=== PATIENT | male | born 1955 | race African-American/Black ===

== ENCOUNTER 2022-06-29 14:17 | Inpatient (IN) | payer OTHER ==
--- OUTSIDE RECORDS SUMMARY | 2022-06-29 14:37 | XMS REPORT | Continuity of Care Document ---
:1955 Author Organization [facility] t Address [address] [place] [address]. [address] [place] [address] Care Team Providers Name Role Phone Abner Rivera MD Primary Care Physician JASMYNE PARIKH Attending Clinician Unavailable ABNER RIVERA Attending Clinician Unavailable KURTIS KIRK Attending Clinician Unavailable KURTIS KIRK Attending Clinician Unavailable Kelsie Matt Hutchinson Attending Clinician Unavailable Katazryna Coburn MD Attending Clinician SENDY DOTY Attending Clinician Unavailable Lab, Ang - Db Attending Clinician Unavailable Abner Rivera MD Attending Clinician TOMEKA REED Attending Clinician Unavailable JUNIOR GARCIA Attending Clinician Unavailable JUNIOR GARCIA Attending Clinician Unavailable Doctor Unassigned, [place] Attending Clinician Unavailable Sendy Doty MD Attending Clinician [phone] [place] Jolly MD Attending Clinician 2, Ad[facility] Lab Attending Clinician Unavailable Padmaja Emerson MD Attending Clinician PADMAJA EMERSON Attending Clinician Unavailable Nurse, [facility] Attending Clinician Unavailable Parminder Rueda MD Attending Clinician Isreal Logan MD Attending Clinician Vaccine, [facility] Family [facility] Attending Clinician Unavailable SHANAE, AHMED Attending Clinician Unavailable SHANAE, AHMED Attending Clinician Unavailable SHELBIE, COLÓN A Attending Clinician Unavailable Alexandrea Segundo MD Attending Clinician Augusta FUENTES, Cassius Damon Attending Clinician Unavailable ASHWIN WILSON Attending Clinician Unavailable Frieda MATA, Nkechi [place] Attending Clinician Oscar ARCOS, Huma Damon Attending Clinician Ashwin Wilson MD Attending Clinician Derek ARCOS, Tomeka Attending Clinician ISREAL LOGAN Attending Clinician Unavailable Benigno [facility] Attending Clinician Unavailable Nec-Lab Attending Clinician Unavailable BOSTON JOLLY Attending Clinician Unavailable Autumn Parker MD Attending Clinician [phone] AUTUMN PARKER Attending Clinician Unavailable GUBarbara_MAMTA_STEFANIW Attending Clinician Unavailable BRENDA RAPHAEL Attending Clinician Unavailable Gramm MEDICAL LANGUAGE SPECIALISTBrenda Attending Clinician Tech, [facility] Sleep Lab Attending Clinician Unavailable Kain Julien MD Attending Clinician KAIN JULIEN Attending Clinician Unavailable KAIN JULIEN Attending Clinician Unavailable Only, Adc Test Attending Clinician Unavailable GOLDIE RUIZ Attending Clinician Unavailable YOUSUF STAHL Attending Clinician Unavailable YOUSUF STAHL Attending Clinician Unavailable Yousuf Stahl DO Attending Clinician [facility] Attending Clinician Unavailable Goldie Morton Attending Clinician BRAN MARIE Attending Clinician Unavailable Nurse, [facility] Pob Immunization Attending Clinician Unavailable Bran Marie DO Attending Clinician Maia Ha MD Attending Clinician MAIA HA Attending Clinician Unavailable Velia Garcia PA-C Attending Clinician Jasmyne Parikh MD Attending Clinician RAFAELA GLASER Attending Clinician Unavailable Lab, [facility] Fam Pob I Attending Clinician Unavailable Bijal MEDICAL LANGUAGE SPECIALIST, Gian Attending Clinician GIAN APPIAH Attending Clinician Unavailable Provider, [facility] Attending Clinician Unavailable Pob, [facility] Lab Main Attending Clinician Unavailable Bennett Cline MD Attending Clinician BENNETT CLINE Attending Clinician Unavailable , [facility] Vascular Room 1 - Attending Clinician Unavailable RHEA SHEEHAN Attending Clinician Unavailable Haven Bass RN Attending Clinician Unavailable Regla Crooks DO Attending Clinician Moris Muñoz MD Attending Clinician MORIS MUÑOZ Attending Clinician Unavailable JAM ROTHMAN Attending Clinician Unavailable Jam Rothman MD Attending Clinician Gus MEDICAL LANGUAGE SPECIALIST, Norma Attending Clinician Unknown, Attending Attending Clinician Unavailable UNKNOWN, ATTENDING Attending Clinician Unavailable JUAN FRANCISCO FLORES Attending Clinician Unavailable Corey Cates MD Attending Clinician Pcp-Lab Attending Clinician Unavailable COREY CATES Attending Clinician Unavailable Luh Mak RN Attending Clinician Anthony Mcnamara DO Attending Clinician Era Snow MD Attending Clinician Antonio Snow MD Attending Clinician ANTONIO SNOW Attending Clinician Unavailable Yuki Ortiz RN Attending Clinician Cristian Garcia MD Attending Clinician Ekta Brown MD Attending Clinician [phone] Pob1, Acute Care Clinic Attending Clinician Unavailable EKTA BROWN Attending Clinician Unavailable Mookie Bhagat RN Attending Clinician Unavailable Mariah Turcios RN Attending Clinician Unavailable Breonna Bautista PA-C Attending Clinician Care, Provider 27 - Adult & Pedi Urgent Attending Clinician Unavailable Pcp, Patient Does Not Have A Attending Clinician [phone] Erin Madera RN Attending Clinician Unavailable Olya Powers PT Attending Clinician Unavailable Timmy Hernandez MD Attending Clinician Angelita Leavitt Attending Clinician Unavailable 1, Adc Lab Attending Clinician Unavailable JASMYNE PARIKH Admitting Clinician Unavailable SENDY DOTY Admitting Clinician Unavailable HUMA JOY Admitting Clinician Unavailable Huma Joy MD Admitting Clinician SUSANNE_MAMTA_YAW Admitting Clinician Unavailable BRENDA RAPHAEL Admitting Clinician Unavailable ISREAL LOGAN Admitting Clinician Unavailable TOMEKA REED Admitting Clinician Unavailable YOUSUF STAHL Admitting Clinician Unavailable Jasmyne Parikh MD Admitting Clinician Moris Muñoz MD Admitting Clinician MORIS MUÑOZ Admitting Clinician Unavailable Antonio Snow MD Admitting Clinician ANTONIO SNOW Admitting Clinician Unavailable EKTA BROWN Admitting Clinician Unavailable Payers Payer Name Policy Type Policy Number Effective Date Expiration Date Teresa melton [facility] D[facility] [id number] 2020 COMP HMO D SNP 00:00:00 [place] [id number] 2020 00:00:00 [place] [facility] [id number] 2021 HEALTH 00:00:00 [facility] [id number] 2020 HMO 00:00:00 MEDICARE PART A [id number] 1997 \\T\\ B 00:00:00 Problems Condition Condition Condition Status Onset Resolution Last Treating Co mments Source Name Details Category Date Date Treatment Clinician Date Hospital Hospital Disease Active Unive rs discharge discharge 12-26 [place] Hematuria, Hematuria, Disease Active U nivers unspecifie unspecifie 818 it y of d type d type 00:00: [place] 00 Medical Branch Gouty Gouty Disease Active Univers arthritis arthritis 6-07 ity of of left of left 00:00: [place] great toe great toe 00 [facility] noel Branch 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 5-24 ity of 00:00: [place] 00 Medical Branch Abnormal Abnormal Disease Active Unive rs ankle ankle 5-24 ity of brachial brachial 00:00: [place] index index 00 Medical (BHAVANI) (BHAVANI) Branch Clumsiness Clumsiness Disease Active U nivers 5-24 ity of 00:00: [place] [facility] 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 5-24 ity of 00:00: [place] [facility] 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 00:00: [place] depression depression 00 Me dical Branch Skin rash Skin rash Disease Active Uni vers 5-24 ity of 00:00: [place] [facility] Hyperchole Hyperchole Disease Active U nivers sterolemia sterolemia 5-24 it y of 00:00: [place] [facility] Mild Mild Disease Active Univers intermitte intermitte 5-24 it y of nt chronic nt chronic 00:[place] asthma asthma 00 Medical without without Branch complicati complicati on on Chronic Chronic Disease Active Univers allergic allergic 5-24 ity of rhinitis rhinitis 00:00: [place] 00 Medical Branch Post-COVID Post-COVID Disease Active 2020-04 U nivers - 2-11 ity of syndrome syndrome 00:00: [place] manifestin manifestin 00 Me dical g as g as Branch chronic chronic neurologic neurologic symptoms symptoms Post-COVID Post-COVID Disease Active 2020-04 U nivers -19 2-11 ity of syndrome syndrome 00:00: [place] manifestin manifestin 00 Me dical g as g as Branch chronic chronic neurologic neurologic symptoms symptoms Short-term Short-term Disease Active 2020-04 U nivers memory memory 2-11 ity of loss loss 00:00: [place] 00 Medical Branch Reactive Reactive Disease Active Unive rs airway airway 7-08 ity of disease, disease, 00:00: [place] unspecifie unspecifie 00 Me dical d asthma d asthma Branch severity, severity, uncomplica uncomplica sonja sonja Rectal Rectal Disease Active Overview: Univer s bleeding bleeding 10-26 Formattin ity of 00:00: g of this [place] 00 note Medical might be Branch different from the original. Added automatic ally from request for surgery [id number] Coronary Coronary Disease Active 2019-04 Unive rs artery artery 2-18 ity of disease disease 00:00: [place] involving involving 00 Medi noel [place] lions [place] lions Branch coronary coronary artery of artery of port lions port lions heart with heart with angina angina pectoris pectoris Dyslipidem Dyslipidem Disease Active 2019-04 U nivers ia ia 2-18 ity of 00:00: [place] [facility] Elevated Elevated Disease Active 2019-04 Unive rs troponin troponin 2-17 ity of 00:00: [place] [facility] Elevated Elevated Disease Active 2019-04 Unive rs troponin troponin 2-17 ity of 00:00: [place] [facility] Obesity Obesity Disease Active 2019-04 Univers (BMI (BMI 2-17 ity of 30-39.9) 30-39.9) 00:00: [place] 00 Medical Branch Pericardia Pericardia Disease Active 2020- U nivers l effusion l effusion 5-02 it y of 00:00: [place] [facility] Pneumonia Pneumonia Disease Active 2020- Uni vers of right of right 4-29 ity of lower lobe lower lobe 00:[place] due to due to 00 Medical infectious infectious Br anch organism organism Cough Cough Disease Active 2020- Univers 4-29 ity of 00:00: [place] [facility] Anxiety Anxiety Disease Active 2020- Univers 4-29 ity of 00:00: [place] 00 Medical Branch Mild Mild Disease Active 2020- Univers cardiomega cardiomega 4-29 it y of ly ly 00:00: [place] 00 Medical Branch Prediabete Prediabete Disease Active 2020-0 U nivers s s 2-06 ity of 00:00: [place] [facility] Lacunar Lacunar Disease Active 2020-0 Univers infarction infarction 2-06 it y of 00:00: [place] 00 Medical Branch Cerebral Cerebral Disease Active 2020- Unive rs microvascu microvascu 2-06 it y of lar lar 00:00: [place] disease disease 00 Medical Branch Arthritis Arthritis Disease Active 2020-0 Uni vers of lumbar of lumbar 1-08 ity of spine spine 00:00: [place] 00 Medical Branch BPH BPH Disease Active 2018-04 Univers without without 0-18 ity of urinary urinary 00:00: [place] obstructio obstructio 00 Me dical n n Branch Pulmonary Pulmonary Disease Active 2018-04 Uni vers nodules nodules 0-06 ity of 00:00: [place] [facility] BPH with BPH with Disease Active 2018-04 Overview: Un rhoda obstructio obstructio 003 Formattin ity of n/lower n/lower 00:00: g of this [place] urinary urinary 00 note Medical tract tract might be Branch symptoms symptoms different from the original. 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 Polyclona l gammopath y Hypercalce Hypercalce Disease Active U nivers hugo hugo 05-23 ity of 00:00: [place] [facility] CKD CKD Disease Active Univers (chronic (chronic -16 ity of kidney kidney 00:00: [place] disease), disease), 00 [facility] noel stage III stage III Bran ch Elevated Elevated Disease Active Unive rs pancreatic pancreatic 12-14 it y of enzyme enzyme 00:00: Medical Branch Microscopi Microscopi Disease Active U nivers c c 12-14 ity of hematuria hematuria 00:[place] [facility] [place] Nephrolith Nephrolith Disease Active Overview : Univers iasis iasis 12-14 Formattin ity of 00:00: g of this [place] note Medical might be Branch different from the original. 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 5-17 it y of ve ve 00:00: [place] 00 Medical Branch History of History of Disease Active U nivers syphilis syphilis 5-17 ity of 00:00: [place] 00 Medical Branch Bilateral Bilateral Disease Active Uni vers groin pain groin pain 5-11 it y of 00:00: [place] [facility] Immunosupp Immunosupp Disease Active U nivers ressive ressive 4-02 ity of management management [place] encounter encounter 00 Medi noel following following Bran ch kidney kidney transplant transplant Coronary Coronary Disease Active Unive rs artery artery 3-28 ity of disease disease 00:00: [place] without without 00 Medical angina angina Branch pectoris pectoris Atypical Atypical Disease Active Unive rs chest pain chest pain 3-28 it y of 00:00: [place] [facility] Abdominal Abdominal Disease Active Uni vers pain pain 9-30 ity of 00:00: [place] [facility] Post-opera Post-opera Disease Active U nivers tive state tive state 6-03 it y of 00:00: [place] [facility] Elevated Elevated Disease Active Unive rs serum serum 9-26 ity of creatinine creatinine [place]:00[place] Need for Need for Disease Recurre Univ ers prophylact prophylact nce 5-13 it y of ic ic 00:00: [place] immunother immunother 00 Me dical apy apy Branch Medicare Medicare Disease Active Unive rs annual annual 5-13 ity of wellness wellness 00:00: [place] visit, visit, 00 Medical subsequent subsequent Br anch Kidney Kidney Disease Recurre 2011-04 Univers replaced replaced nce 04-29 ity of by by 00:00: [place] transplant transplant 00 Me dical Branch LEFT LEFT Disease Recurre 2004-04 Overview: Unive rs VENTRICULA VENTRICULA nce 05-20 Formattin ity of R R 00:00: g of this [place] HYPERTROPH HYPERTROPH 00 note Me dical Y Y might be Branch different from the original. 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 4ICD10 Diagnosis Term [facility] [employer] Essential Essential Disease Recurre Un rhoda hypertensi hypertensi nce 9- it y of on on 00:00: [place] [address] Medical Branch Allergies, Adverse Reactions, Alerts Allergy Allergy Status Severity Reaction(s) Onset Inactive Treating Comm ents Source Name Type Date Date Clinician NO KNOWN Drug Active Univers ALLERGIE Class ity of S [facility] Social History Social Habit Start Date Stop Date Quantity Comments Source History of tobacco Cigarette Smoker University of use [facility] Branch History [facility] o f Alcohol Frequency [facility] [place] [facility] edical Branch History [facility] o f Alcohol Std Drinks [facility] History [facility] o f Alcohol Binge [facility] al Branch Exposure to 2022-05-20 2022-05-30 Not sure [facility] SARS-CoV-2 (event) 00:00:00 08:20:00 [facility] Alcohol intake 2022-05-16 2022-05-16 Current University of 00:00:00 00:00:00 non-drinker of [facility] alcohol (finding) Branch Tobacco Comment 2021-11-14 2021-11-14 Denies. Former Unive rsity of 00:00:00 00:00:00 smoker , 0.5 ppd [place] Dc dical Quit 6 yrs ago Branch Cigarettes smoked 2021-11-14 2021-11-14 Univers ity of current (pack per 00:00:00 00:00:00 [facility] [place] [facility] ) - Reported Branch Tobacco use and 2021-11-14 2021-11-14 Smokeless tobacco Un iversity of exposure 00:00:00 00:00:00 non-user [facility] Education 2019-02-12 2019-02-12 17 University of 00:00:00 00:00:00 [facility] History SDOH 2019-02-12 2019-02-12 5 University o f Financial 00:00:00 00:00:00 [facility] Alcohol Comment 2009-12-15 2009-12-15 social drinker, [facility] ersity of 00:00:00 00:00:00 no etoh after [place] Medic al transplant Branch Sex [birth year] Universit y of 00:00:00 00:00:00 [facility] Smoking Status Start Date Stop Date Source Ex-smoker 2021-11-14 00:00:00 2021-11-14 00:00:00 Universi ty of [facility] Medications Ordered Filled Start Stop Current Ordering Indication Dosage Frequency Signature Comments Components Source Medication Medication Date Date Medication? Clinician (SIG) Name Name dupilumab Yes [id number] 300mg inject 1 Univers (DUPIXENT 2-16 Pen under ity o f PEN) 300 00:00: the skin [place] mg/2 mL 00 every 2 Medical PnIj (two) Branch weeks. Inject 2 pens under the skin on day 0. Then one pen every other week. dupilumab Yes [id number] 300mg inject 1 Univers (DUPIXENT 2-16 Pen under ity o f PEN) 300 00:00: the skin [place] mg/2 mL 00 every 2 Medical PnIj (two) Branch weeks. dupilumab Yes [id number] 300mg Inject 2 Univers (DUPIXENT 2-16 pens under ity of PEN) 300 00:00: the skin [place] mg/2 mL 00 on day 0. Medical PnIj Then one Branch pen every other week. dupilumab Yes [id number] 300mg inject 1 Univers (DUPIXENT 2-16 Pen under ity o f PEN) 300 00:00: the skin [place] mg/2 mL 00 every 2 Medical PnIj (two) Branch weeks. allopurinoL Yes [id number] 100mg Take 1 Univers 100 mg 1-10 [id number] tablet by ity of tablet 00:00: mouth in [place] 00 the Medical morning. Branch fluticasone Yes [id number] INHALE 1 Univers propionate 1-10 PUFF EVERY ity of (FLOVENT 00:00: 12 [place] HFA) 220 00 (TWELVE) Medical mcg/actuati HOURS. Branch on inhaler Rinse mouth after each use. fluocinonid Yes [id number] Apply to Univers e 0.05 % 1-10 area(s) 2 ity of cream 00:00: (two) [place] 00 times Medical daily. Branch furosemide Yes [id number] 20mg Take 1 Univers 20 mg 1-10 tablet by ity of tablet 00:00: mouth as [place] 00 needed Medical (swelling) Branch . nitroglycer Yes [id number] PLACE 1 Univers in 0.4 mg 1-10 TABLET ity of sublingual 00:00: UNDER THE [place] tablet 00 TONGUE Medical EVERY 5 Branch MINUTES NEEDED FOR CHEST PAIN FOR 3 DOSES. IF NO RELIEF, CALL 911. docusate 0 Yes [id number] 100mg Take 1 Un rhoda (COLACE) 1-10 capsule by ity o f 100 mg 00:00: mouth once [place] capsule 00 daily as Medical needed for Branch Constipati on. allopurinoL 0 Yes [id number] 100mg Take 1 Univers 100 mg 1-10 [id number] tablet by ity of tablet 00:00: mouth in [place] 00 the Medical morning. Branch fluticasone 0 Yes [id number] INHALE 1 Univers propionate 1-10 PUFF EVERY ity of (FLOVENT 00:00: 12 [place] HFA) 220 00 (TWELVE) Medical mcg/actuati HOURS. Branch on inhaler Rinse mouth after each use. fluocinonid 0 Yes [id number] Apply to Univers e 0.05 % 1-10 area(s) 2 ity of cream 00:00: (two) [place] 00 times Medical daily. Branch furosemide 0 Yes [id number] 20mg Take 1 Univers 20 mg 1-10 tablet by ity of tablet 00:00: mouth as [place] 00 needed Medical (swelling) Branch . nitroglycer [id number] 1 Univers in 0.4 mg 1-10 TABLET ity of sublingual 00:00: [place]ER THE [place] tablet 00 TONGUE Medical EVERY 5 Branch MINUTES NEEDED FOR CHEST PAIN FOR 3 DOSES. IF NO RELIEF, CALL 911. docusate 2022-0 Yes [id number] 100mg Take 1 Un rhoda (COLACE) 1-10 capsule by ity o f 100 mg 00:00: mouth once [place] capsule 00 daily as Medical needed for Branch Constipati on. allopurinoL 0 Yes [id number] 100mg Take 1 Univers 100 mg 1-10 [id number] tablet by ity of tablet 00:00: mouth in [place] 00 the Medical morning. Branch fluticasone 2022-0 Yes [id number] INHALE 1 Univers propionate 1-10 PUFF EVERY ity of (FLOVENT 00:00: 12 [place] HF) 220 00 (TWELVE) Medical mcg/actuati HOURS. Branch on inhaler Rinse mouth after each use. fluocinonid 2022-0 Yes [id number] Apply to Univers e 0.05 % 1-10 area(s) 2 ity of cream 00:00: (two) [place] 00 times Medical daily. Branch furosemide 2022-0 Yes [id number] 20mg Take 1 Univers 20 mg 1-10 tablet by ity of tablet 00:00: mouth as [place] 00 needed Medical (swelling) Branch . nitroglycer 2022-[id number] 1 Univers in 0.4 mg 1-10 TABLET ity of sublingual 00:00: [place]ER THE [place] tablet 00 TONGUE Medical EVERY 5 Branch MINUTES NEEDED FOR CHEST PAIN FOR 3 DOSES. IF NO RELIEF, CALL 911. docusate 2022-0 Yes [id number] 100mg Take 1 Un rhoda (COLACE) 1-10 capsule by ity o f 100 mg 00:00: mouth once [place] capsule 00 daily as Medical needed for Branch Constipati on. allopurinoL 2022-0 Yes [id number] 100mg Take 1 Univers 100 mg 1-10 [id number] tablet by ity of tablet 00:00: mouth in [place] 00 the Medical morning. Branch fluticasone 2022-0 Yes [id number] INHALE 1 Univers propionate 1-10 PUFF EVERY ity of (FLOVENT 00:00: 12 [place] HFA) 220 00 (TWELVE) Medical mcg/actuati HOURS. Branch on inhaler Rinse mouth after each use. fluocinonid 2022-0 Yes [id number] Apply to Univers e 0.05 % 1-10 area(s) 2 ity of cream 00:00: (two) [place] 00 times Medical daily. Branch furosemide 2022-0 Yes [id number] 20mg Take 1 Univers 20 mg 1-10 tablet by ity of tablet 00:00: mouth as [place] 00 needed Medical (swelling) Branch . nitroglycer 2022-[id number] 1 Univers in 0.4 mg 1-10 TABLET ity of sublingual 00:00: [place]ER THE [place] tablet 00 TONGUE Medical EVERY 5 Branch MINUTES NEEDED FOR CHEST PAIN FOR 3 DOSES. IF NO RELIEF, CALL 911. docusate 2022-0 Yes [id number] 100mg Take 1 Un rhoda (COLACE) 1-10 capsule by ity o f 100 mg 00:00: mouth once [place] capsule 00 daily as Medical needed for Branch Constipati on. allopurinoL 2022-0 Yes [id number] 100mg Take 1 Univers 100 mg 1-10 [id number] tablet by ity of tablet 00:00: mouth in [place] 00 the Medical morning. Branch fluticasone 2022-0 Yes [id number] INHALE 1 Univers propionate 1-10 PUFF EVERY ity of (FLOVENT 00:00: 12 [place] HFA) 220 00 (TWELVE) Medical mcg/actuati HOURS. Branch on inhaler Rinse mouth after each use. fluocinonid 2022-0 Yes [id number] Apply to Univers e 0.05 % 1-10 area(s) 2 ity of cream 00:00: (two) [place] 00 times Medical daily. Branch furosemide 2022-0 Yes [id number] 20mg Take 1 Univers 20 mg 1-10 tablet by ity of tablet 00:00: mouth as [place] 00 needed Medical (swelling) Branch . nitroglycer 2022-[id number] 1 Univers in 0.4 mg 1-10 TABLET ity of sublingual 00:00: [place]ER THE [place] tablet 00 TONGUE Medical EVERY 5 Branch MINUTES NEEDED FOR CHEST PAIN FOR 3 DOSES. IF NO RELIEF, CALL 911. docusate 2022-0 Yes [id number] 100mg Take 1 Un rhoda (COLACE) 1-10 capsule by ity o f 100 mg 00:00: mouth once [place] capsule 00 daily as Medical needed for Branch Constipati on. allopurinoL 2022-0 Yes [id number] 100mg Take 1 Univers 100 mg 1-10 [id number] tablet by ity of tablet 00:00: mouth in [place] 00 the Medical morning. Branch fluticasone 2022-0 Yes [id number] INHALE 1 Univers propionate 1-10 PUFF EVERY ity of (FLOVENT 00:00: 12 [place] HFA) 220 00 (TWELVE) Medical mcg/actuati HOURS. Branch on inhaler Rinse mouth after each use. fluocinonid Yes [id number] Apply to Univers e 0.05 % 1-10 area(s) 2 ity of cream 00:00: (two) [place] 00 times Medical daily. Branch furosemide 0 Yes [id number] 20mg Take 1 Univers 20 mg 1-10 tablet by ity of tablet 00:00: mouth as [place] 00 needed Medical (swelling) Branch . nitroglycer 2022-[id number] 1 Univers in 0.4 mg 1-10 TABLET ity of sublingual 00:00: [place]ER THE [place] tablet 00 TONGUE Medical EVERY 5 Branch MINUTES NEEDED FOR CHEST PAIN FOR 3 DOSES. IF NO RELIEF, CALL 911. docusate 2022-0 Yes [id number] 100mg Take 1 [facility] (COLACE) 1-10 capsule by ity o f 100 mg 00:00: mouth once [place] capsule 00 daily as Medical needed for Branch Constipati on. allopurinoL 0 Yes [id number] 100mg Take 1 [facility] 100 mg 1-10 [id number] tablet by [facility] of tablet 00:00: mouth in [place] 00 the Medical morning. Branch fluticasone 0 Yes [id number] INHALE 1 [facility] propionate 1-10 PUFF EVERY ity of (FLOVENT 00:00: 12 [place] HFA) 220 00 (TWELVE) Medical mcg/actuati HOURS. Branch on inhaler Rinse mouth after each use. fluocinonid Yes [id number] Apply to [facility] e 0.05 % 1-10 area(s) 2 ity of cream 00:00: (two) [place] 00 times Medical daily. Branch furosemide 0 Yes [id number] 20mg Take 1 [facility] 20 mg 1-10 tablet by ity of tablet 00:00: mouth as [place] 00 needed Medical (swelling) Branch . nitroglycer 2022-[id number] 1 [facility] in 0.4 mg 1-10 TABLET ity of sublingual 00:00: UNDER THE [place] tablet 00 TONGUE Medical EVERY 5 Branch MINUTES NEEDED FOR CHEST PAIN FOR 3 DOSES. IF NO RELIEF, CALL 911. docusate 2022-0 Yes [id number] 100mg Take 1 [facility] (COLACE) 1-10 capsule by ity o f 100 mg 00:00: mouth once [place] capsule 00 daily as Medical needed for Branch Constipati on. allopurinoL 2022-0 Yes [id number] 100mg Take 1 [facility] 100 mg 1-10 [id number] tablet by ity of tablet 00:00: mouth in [place] 00 the Medical morning. Branch fluticasone 2022-0 Yes [id number] INHALE 1 [facility] propionate 1-10 PUFF EVERY ity of (FLOVENT 00:00: 12 [place] HFA) 220 00 (TWELVE) Medical mcg/actuati HOURS. Branch on inhaler Rinse mouth after each use. fluocinonid 2022-0 Yes [id number] Apply to [facility] e 0.05 % 1-10 area(s) 2 ity of cream 00:00: (two) [place] 00 times Medical daily. Branch furosemide 2022-0 Yes [id number] 20mg Take 1 [facility] 20 mg 1-10 tablet by ity of tablet 00:00: mouth as [place] 00 needed Medical (swelling) Branch . nitroglycer 2022-[id number] 1 [facility] in 0.4 mg 1-10 TABLET ity of sublingual 00:00: UNDER THE [place] tablet 00 TONGUE Medical EVERY 5 Branch MINUTES NEEDED FOR CHEST PAIN FOR 3 DOSES. IF NO RELIEF, CALL 911. docusate 2022-0 Yes [id number] 100mg Take 1 [facility] (COLACE) 1-10 capsule by ity o f 100 mg 00:00: mouth once [place] capsule 00 daily as Medical needed for Branch Constipati on. allopurinoL 2022-0 Yes [id number] 100mg Take 1 [facility] 100 mg 1-10 [id number] tablet by ity of tablet 00:00: mouth in [place] 00 the Medical morning. Branch fluticasone 2022-0 Yes [id number] INHALE 1 [facility] propionate 1-10 PUFF EVERY ity of (FLOVENT 00:00: 12 [place] HFA) 220 00 (TWELVE) Medical mcg/actuati HOURS. Branch on inhaler Rinse mouth after each use. fluocinonid 2022-0 Yes [id number] Apply to [facility] e 0.05 % 1-10 area(s) 2 ity of cream 00:00: (two) [place] 00 times Medical daily. Branch furosemide 2022-0 Yes [id number] 20mg Take 1 [facility] 20 mg 1-10 tablet by ity of tablet 00:00: mouth as [place] 00 needed Medical (swelling) Branch . nitroglycer 2022-[id number] 1 [facility] in 0.4 mg 1-10 TABLET ity of sublingual 00:00: UNDER THE [place] tablet 00 TONGUE Medical EVERY 5 Branch MINUTES NEEDED FOR CHEST PAIN FOR 3 DOSES. IF NO RELIEF, CALL 911. docusate 2022-0 Yes [id number] 100mg Take 1 [facility] (COLACE) 1-10 capsule by ity o f 100 mg 00:00: mouth once [place] capsule 00 daily as Medical needed for Branch Constipati on. allopurinoL 2022-0 Yes [id number] 100mg Take 1 [facility] 100 mg 1-10 [id number] tablet by ity of tablet 00:00: mouth in [place] 00 the Medical morning. Branch fluticasone 2022-0 Yes [id number] INHALE 1 [facility] propionate 1-10 PUFF EVERY ity of (FLOVENT 00:00: 12 [place] HFA) 220 00 (TWELVE) Medical mcg/actuati HOURS. Branch on inhaler Rinse mouth after each use. fluocinonid 2022-0 Yes [id number] Apply to [facility] e 0.05 % 1-10 area(s) 2 ity of cream 00:00: (two) [place] 00 times Medical daily. Branch furosemide 2022-0 Yes [id number] 20mg Take 1 [facility] 20 mg 1-10 tablet by ity of tablet 00:00: mouth as [place] 00 needed Medical (swelling) Branch . nitroglycer 2022-[id number] 1 [facility] in 0.4 mg 1-10 TABLET ity of sublingual 00:00: UNDER THE [place] tablet 00 TONGUE Medical EVERY 5 Branch MINUTES NEEDED FOR CHEST PAIN FOR 3 DOSES. IF NO RELIEF, CALL 911. docusate 2022-0 Yes [id number] 100mg Take 1 [facility] (COLACE) 1-10 capsule by ity o f 100 mg 00:00: mouth once [place] capsule 00 daily as Medical needed for Branch Constipati on. allopurinoL 2022-0 Yes [id number] 100mg Take 1 [facility] 100 mg 1-10 [id number] tablet by ity of tablet 00:00: mouth in [place] 00 the Medical morning. Branch fluticasone 2022-0 Yes [id number] INHALE 1 [facility] propionate 1-10 PUFF EVERY ity of (FLOVENT 00:00: 12 [place] HFA) 220 00 (TWELVE) Medical mcg/actuati HOURS. Branch on inhaler Rinse mouth after each use. fluocinonid 0 Yes [id number] Apply to [facility] e 0.05 % 1-10 area(s) 2 ity of cream 00:00: (two) [place] 00 times Medical daily. Branch furosemide 2022-0 Yes [id number] 20mg Take 1 [facility] 20 mg 1-10 tablet by ity of tablet 00:00: mouth as [place] 00 needed Medical (swelling) Branch . nitroglycer 2022-[id number] 1 [facility] in 0.4 mg 1-10 TABLET ity of sublingual 00:00: UNDER THE [place] tablet 00 TONGUE Medical EVERY 5 Branch MINUTES NEEDED FOR CHEST PAIN FOR 3 DOSES. IF NO RELIEF, CALL 911. docusate 2022-0 Yes [id number] 100mg Take 1 [facility] (COLACE) 1-10 capsule by ity o f 100 mg 00:00: mouth once [place] capsule 00 daily as Medical needed for Branch Constipati on. allopurinoL 2022-0 Yes [id number] 100mg Take 1 [facility] 100 mg 1-10 [id number] tablet by ity of tablet 00:00: mouth in [place] 00 the Medical morning. Branch fluticasone 2022-0 Yes [id number] INHALE 1 [facility] propionate 1-10 PUFF EVERY ity of (FLOVENT 00:00: 12 [place] HFA) 220 00 (TWELVE) Medical mcg/actuati HOURS. Branch on inhaler Rinse mouth after each use. fluocinonid 2022-0 Yes [id number] Apply to [facility] e 0.05 % 1-10 area(s) 2 ity of cream 00:00: (two) [place] 00 times Medical daily. Branch furosemide 2022-0 Yes [id number] 20mg Take 1 [facility] 20 mg 1-10 tablet by ity of tablet 00:00: mouth as [place] 00 needed Medical (swelling) Branch . nitroglycer 2022-[id number] 1 [facility] in 0.4 mg 1-10 TABLET ity of sublingual 00:00: UNDER THE [place] tablet 00 TONGUE Medical EVERY 5 Branch MINUTES NEEDED FOR CHEST PAIN FOR 3 DOSES. IF NO RELIEF, CALL 911. docusate 2022-0 Yes [id number] 100mg Take 1 [facility] (COLACE) 1-10 capsule by ity o f 100 mg 00:00: mouth once [place] capsule 00 daily as Medical needed for Branch Constipati on. allopurinoL 2022-0 Yes [id number] 100mg Take 1 [facility] 100 mg 1-10 [id number] tablet by ity of tablet 00:00: mouth in [place] 00 the Medical morning. Branch fluticasone 2022-0 Yes [id number] INHALE 1 [facility] propionate 1-10 PUFF EVERY ity of (FLOVENT 00:00: 12 [place] HFA) 220 00 (TWELVE) Medical mcg/actuati HOURS. Branch on inhaler Rinse mouth after each use. fluocinonid 2022-0 Yes [id number] Apply to [facility] e 0.05 % 1-10 area(s) 2 ity of cream 00:00: (two) [place] 00 times Medical daily. Branch furosemide 2022-0 Yes [id number] 20mg Take 1 [facility] 20 mg 1-10 tablet by ity of tablet 00:00: mouth as [place] 00 needed Medical (swelling) Branch . nitroglycer 2022-[id number] 1 [facility] in 0.4 mg 1-10 TABLET ity of sublingual 00:00: UNDER THE [place] tablet 00 TONGUE Medical EVERY 5 Branch MINUTES NEEDED FOR CHEST PAIN FOR 3 DOSES. IF NO RELIEF, CALL 911. docusate 2022-0 Yes [id number] 100mg Take 1 [facility] (COLACE) 1-10 capsule by ity o f 100 mg 00:00: mouth once [place] capsule 00 daily as Medical needed for Branch Constipati on. allopurinoL 2022-0 Yes [id number] 100mg Take 1 [facility] 100 mg 1-10 [id number] tablet by ity of tablet 00:00: mouth in [place] 00 the Medical morning. Branch fluticasone 2022-0 Yes [id number] INHALE 1 [facility] propionate 1-10 PUFF EVERY ity of (FLOVENT 00:00: 12 [place] HFA) 220 00 (TWELVE) Medical mcg/actuati HOURS. Branch on inhaler Rinse mouth after each use. fluocinonid 2022-0 Yes [id number] Apply to [facility] e 0.05 % 1-10 area(s) 2 ity of cream 00:00: (two) [place] 00 times Medical daily. Branch furosemide 2023-0 Yes [id number] 20mg Take 1 [facility] 20 mg 1-10 tablet by ity of tablet 00:00: mouth as [place] 00 needed Medical (swelling) Branch . nitroglycer Yes [id number] PLACE 1 [facility] in 0.4 mg 1-10 TABLET ity of sublingual 00:00: UNDER THE [place] tablet 00 TONGUE Medical EVERY 5 Branch MINUTES NEEDED FOR CHEST PAIN FOR 3 DOSES. IF NO RELIEF, CALL 911. docusate Yes [id number] 100mg Take 1 [facility] (COLACE) 1-10 capsule by ity o f 100 mg 00:00: mouth once [place] capsule 00 daily as Medical needed for Branch Constipati on. allopurinoL Yes [id number] 100mg Take 1 [facility] 100 mg 1-10 [id number] tablet by ity of tablet 00:00: mouth in [place] 00 the Medical morning. Branch fluticasone Yes [id number] INHALE 1 [facility] propionate 1-10 PUFF EVERY ity of (FLOVENT 00:00: 12 [place] HFA) 220 00 (TWELVE) Medical mcg/actuati HOURS. Branch on inhaler Rinse mouth after each use. fluocinonid Yes [id number] Apply to [facility] e 0.05 % 1-10 area(s) 2 ity of cream 00:00: (two) [place] 00 times Medical daily. Branch furosemide Yes [id number] 20mg Take 1 [facility] 20 mg 1-10 tablet by ity of tablet 00:00: mouth as [place] 00 needed Medical (swelling) Branch . nitroglycer Yes [id number] PLACE 1 [facility] in 0.4 mg 1-10 TABLET ity of sublingual 00:00: UNDER THE [place] tablet 00 TONGUE Medical EVERY 5 Branch MINUTES NEEDED FOR CHEST PAIN FOR 3 DOSES. IF NO RELIEF, CALL 911. docusate Yes [id number] 100mg Take 1 [facility] (COLACE) 1-10 capsule by ity o f 100 mg 00:00: mouth once [place] capsule 00 daily as Medical needed for Branch Constipati on. furosemide 2021-04 Yes [id number] 20mg Take 1 [facility] 20 mg 2-29 tablet by ity of tablet 00:00: mouth as [place] 00 needed Medical (swelling) Branch . furosemide 2021-04 Yes [id number] 20mg Take 1 [facility] 20 mg 2-29 tablet by ity of tablet 00:00: mouth as [place] 00 needed Medical (swelling) Branch . furosemide 2021-04- No [id number] 20mg Take 1 [facility] 20 mg 2-29 01-10 tablet by ity of tablet 00:00: 00:00 mouth as [place] 00 :00 needed Medical (swelling) Branch . furosemide 2021-04- No [id number] 20mg Take 1 [facility] 20 mg 2-29 -10 tablet by ity of tablet 00:00: 00:00 mouth as [place] 00 :00 needed Medical (swelling) Branch . iopamidol 2021-04- No [id number] 100mL 100 mL, [facility] (ISOVUE 2-19 -19 Intravenou ity o f 370-500 mL) 16:45: 15:46 s, ONCE, 1 [place] injection 00 :00 dose, On Medica l 100 mL Mon Branch 04/15/22 at 1045, Routine tacrolimus 2021-04 Yes [id number] Take 5 [facility] (PROGRAF) 1 2-19 tablets in it y of mg capsule 00:00: the [place] morning Medical and 4 Branch tablets in the evening Diagnosis: Z 94.0 generic permitted tacrolimus 2021-04 Yes [id number] Take 5 [facility] (PROGRAF) 1 2-19 tablets in it y of mg capsule 00:00: the [place] morning Medical and 4 Branch tablets in the evening Diagnosis: Z 94.0 generic permitted tacrolimus 2021-04 Yes [id number] Take 5 [facility] (PROGRAF) 1 2-19 tablets in it y of mg capsule 00:00: the [place] morning Medical and 4 Branch tablets in the evening Diagnosis: Z 94.0 generic permitted tacrolimus 2021-04 Yes [id number] Take 5 [facility] (PROGRAF) 1 2-19 tablets in it y of mg capsule 00:00: the [place] morning Medical and 4 Branch tablets in the evening Diagnosis: Z 94.0 generic permitted tacrolimus 2021-04 Yes [id number] Take 5 [facility] (PROGRAF) 1 2-19 tablets in it y of mg capsule 00:00: the [place] morning Medical and 4 Branch tablets in the evening Diagnosis: Z 94.0 generic permitted tacrolimus 2021-04 Yes [id number] Take 5 [facility] (PROGRAF) 1 2-19 tablets in it y of mg capsule 00:00: the morning Medical and 4 Branch tablets in the evening Diagnosis: Z 94.0 generic permitted tacrolimus 2022- Yes [id number] Take 5 [facility] (PROGRAF) 1 2-19 tablets in it y of mg capsule 00:00: the morning Medical and 4 Branch tablets in the evening Diagnosis: Z 94.0 generic permitted tacrolimus 2022- Yes [id number] Take 5 [facility] (PROGRAF) 1 2-19 tablets in it y of mg capsule 00:00: the morning Medical and 4 Branch tablets in the evening Diagnosis: Z 94.0 generic permitted tacrolimus 2022-1 Yes [id number] Take 5 [facility] (PROGRAF) 1 2-19 tablets in it y of mg capsule 00:00: the morning Medical and 4 Branch tablets in the evening Diagnosis: Z 94.0 generic permitted tacrolimus 2022-1 Yes [id number] Take 5 [facility] (PROGRAF) 1 2-19 tablets in it y of mg capsule 00:00: the morning Medical and 4 Branch tablets in the evening Diagnosis: Z 94.0 generic permitted tacrolimus 2022-1 Yes [id number] Take 5 [facility] (PROGRAF) 1 2-19 tablets in it y of mg capsule 00:00: the morning Medical and 4 Branch tablets in the evening Diagnosis: Z 94.0 generic permitted tacrolimus 2-1 Yes [id number] Take 5 [facility] (PROGRAF) 1 2-19 tablets in it y of mg capsule 00:00: the morning Medical and 4 Branch tablets in the evening Diagnosis: Z 94.0 generic permitted tacrolimus 2022-1 Yes [id number] Take 5 [facility] (PROGRAF) 1 2-19 tablets in it y of mg capsule 00:00: the morning Medical and 4 Branch tablets in the evening Diagnosis: Z 94.0 generic permitted tacrolimus 2022-1 Yes [id number] Take 5 [facility] (PROGRAF) 1 2-19 tablets in it y of mg capsule 00:00: the morning Medical and 4 Branch tablets in the evening Diagnosis: Z 94.0 generic permitted tacrolimus 2022-1 Yes [id number] Take 5 [facility] (PROGRAF) 1 2-19 tablets in it y of mg capsule 00:00: the morning Medical and 4 Branch tablets in the evening Diagnosis: Z 94.0 generic permitted tacrolimus 2021- Yes [id number] Take 5 [facility] (PROGRAF) 1 2-19 tablets in it y of mg capsule 00:00: the morning Medical and 4 Branch tablets in the evening Diagnosis: Z 94.0 generic permitted tacrolimus 2021- Yes [id number] Take 5 [facility] (PROGRAF) 1 2-19 tablets in it y of mg capsule 00:00: the morning Medical and 4 Branch tablets in the evening Diagnosis: Z 94.0 generic permitted tacrolimus 2021- Yes [id number] Take 5 [facility] (PROGRAF) 1 2-19 tablets in it y of mg capsule 00:00: the morning Medical and 4 Branch tablets in the evening Diagnosis: Z 94.0 generic permitted tacrolimus 2021- Yes [id number] Take 5 [facility] (PROGRAF) 1 2-19 tablets in it y of mg capsule 00:00: the morning Medical and 4 Branch tablets in the evening Diagnosis: Z 94.0 generic permitted tacrolimus 2021- Yes [id number] Take 5 [facility] (PROGRAF) 1 2-19 tablets in it y of mg capsule 00:00: the morning Medical and 4 Branch tablets in the evening Diagnosis: Z 94.0 generic permitted PRAVASTATIN 2021-04 Yes [id number] TAKE 1 [facility] 40 mg 2-01 TABLET BY ity of tablet 00:00: MOUTH 00 EVERYDAY Medical AT BEDTIME Branch PRAVASTATIN 2021- Yes [id number] TAKE 1 [facility] 40 mg 2-01 TABLET BY ity of tablet 00:00: MOUTH 00 EVERYDAY Medical AT BEDTIME Branch PRAVASTATIN 2021- Yes [id number] TAKE 1 [facility] 40 mg 2-01 TABLET BY ity of tablet 00:00: MOUTH [place] 00 EVERYDAY Medical AT BEDTIME Branch PRAVASTATIN 2021- Yes [id number] TAKE 1 [facility] 40 mg 2-01 TABLET BY ity of tablet 00:00: MOUTH [place] 00 EVERYDAY Medical AT BEDTIME Branch PRAVASTATIN 2021- Yes [id number] TAKE 1 [facility] 40 mg 2-01 TABLET BY ity of tablet 00:00: MOUTH 00 EVERYDAY Medical AT BEDTIME Branch PRAVASTATIN 2021- Yes [id number] TAKE 1 [facility] 40 mg 2-01 TABLET BY ity of tablet 00:00: MOUTH [place] 00 EVERYDAY Medical AT BEDTIME Branch PRAVASTATIN 2021- Yes [id number] TAKE 1 [facility] 40 mg 2-01 TABLET BY ity of tablet 00:00: MOUTH [place] 00 EVERYDAY Medical AT BEDTIME Branch PRAVASTATIN 2- Yes [id number] TAKE 1 [facility] 40 mg 2-01 TABLET BY ity of tablet 00:00: MOUTH [place] 00 EVERYDAY Medical AT BEDTIME Branch PRAVASTATIN 2021- Yes [id number] TAKE 1 [facility] 40 mg 2-01 TABLET BY ity of tablet 00:00: MOUTH [place] 00 EVERYDAY Medical AT BEDTIME Branch PRAVASTATIN 2021- Yes [id number] TAKE 1 [facility] 40 mg 2-01 TABLET BY ity of tablet 00:00: MOUTH [place] 00 EVERYDAY Medical AT BEDTIME Branch PRAVASTATIN 2021- Yes [id number] TAKE 1 [facility] 40 mg 2-01 TABLET BY ity of tablet 00:00: MOUTH [place] 00 EVERYDAY Medical AT BEDTIME Branch PRAVASTATIN 2021- Yes [id number] TAKE 1 [facility] 40 mg 2-01 TABLET BY ity of tablet 00:00: MOUTH [place] EVERYDAY Medical AT BEDTIME Branch PRAVASTATIN 2021- Yes [id number] TAKE 1 [facility] 40 mg 2-01 TABLET BY ity of tablet 00:00: MOUTH [place] 00 EVERYDAY Medical AT BEDTIME Branch PRAVASTATIN 2021- Yes [id number] TAKE 1 [facility] 40 mg 2-01 TABLET BY ity of tablet 00:00: MOUTH [place] 00 EVERYDAY Medical AT BEDTIME Branch PRAVASTATIN 2021- Yes [id number] TAKE 1 [facility] 40 mg 2-01 TABLET BY ity of tablet 00:00: MOUTH [place] EVERYDAY Medical AT BEDTIME Branch PRAVASTATIN 2- Yes [id number] TAKE 1 [facility] 40 mg 2-01 TABLET BY ity of tablet 00:00: MOUTH [place] 00 EVERYDAY Medical AT BEDTIME Branch PRAVASTATIN 2- Yes [id number] TAKE 1 [facility] 40 mg 2-01 TABLET BY ity of tablet 00:00: MOUTH [place] 00 EVERYDAY Medical AT BEDTIME Branch PRAVASTATIN 2- Yes [id number] TAKE 1 [facility] 40 mg 2-01 TABLET BY ity of tablet 00:00: MOUTH [place] 00 EVERYDAY Medical AT BEDTIME Branch PRAVASTATIN 2- Yes [id number] TAKE 1 [facility] 40 mg 2-01 TABLET BY ity of tablet 00:00: MOUTH [place] 00 EVERYDAY Medical AT BEDTIME Branch PRAVASTATIN 2021- Yes [id number] TAKE 1 [facility] 40 mg 2-01 TABLET BY ity of tablet 00:00: MOUTH [place] 00 EVERYDAY Medical AT BEDTIME Branch PRAVASTATIN 2- Yes [id number] TAKE 1 [facility] 40 mg 2-01 TABLET BY ity of tablet 00:00: MOUTH [place] 00 EVERYDAY Medical AT BEDTIME Branch PRAVASTATIN 2- Yes [id number] TAKE 1 [facility] 40 mg 2-01 TABLET BY ity of tablet 00:00: MOUTH [place] 00 EVERYDAY Medical AT BEDTIME Branch PRAVASTATIN 2021- Yes [id number] TAKE 1 [facility] 40 mg 2-01 TABLET BY ity of tablet 00:00: MOUTH [place] 00 EVERYDAY Medical AT BEDTIME Branch PRAVASTATIN 2021- Yes [id number] TAKE 1 [facility] 40 mg 2-01 TABLET BY ity of tablet 00:00: MOUTH [place] 00 EVERYDAY Medical AT BEDTIME Branch PRAVASTATIN 2021- Yes [id number] TAKE 1 [facility] 40 mg 2-01 TABLET BY ity of tablet 00:00: MOUTH EVERYDAY Medical AT BEDTIME Branch PRAVASTATIN 2021- Yes [id number] TAKE 1 [facility] 40 mg 2-01 TABLET BY ity of tablet 00:00: MOUTH 00 EVERYDAY Medical AT BEDTIME Branch PRAVASTATIN 2021- Yes [id number] TAKE 1 [facility] 40 mg 2-01 TABLET BY ity of tablet 00:00: MOUTH 00 EVERYDAY Medical AT BEDTIME Branch PRAVASTATIN 2- Yes [id number] TAKE 1 [facility] 40 mg 2-01 TABLET BY ity of tablet 00:00: MOUTH 00 EVERYDAY Medical AT BEDTIME Branch PRAVASTATIN 2-1 Yes [id number] TAKE 1 [facility] 40 mg 2-01 TABLET BY ity of tablet 00:00: MOUTH 00 EVERYDAY Medical AT BEDTIME Branch PRAVASTATIN 2-1 Yes [id number] TAKE 1 [facility] 40 mg 2-01 TABLET BY ity of tablet 00:00: MOUTH 00 EVERYDAY Medical AT BEDTIME Branch PRAVASTATIN 2- Yes [id number] TAKE 1 [facility] 40 mg 2-01 TABLET BY ity of tablet 00:00: MOUTH [place] 00 EVERYDAY Medical AT BEDTIME Branch PRAVASTATIN 2-1 Yes [id number] TAKE 1 [facility] 40 mg 2-01 TABLET BY ity of tablet 00:00: MOUTH [place] 00 EVERYDAY Medical AT BEDTIME Branch PRAVASTATIN 2021- Yes [id number] TAKE 1 [facility] 40 mg 2-01 TABLET BY ity of tablet 00:00: MOUTH [place] 00 EVERYDAY Medical AT BEDTIME Branch OMEPRAZOLE 2021- Yes [id number] TAKE 1 [facility] 40 mg 1-28 CAPSULE BY ity of capsule 00:00: MOUTH [place] 00 EVERY DAY Medical Branch OMEPRAZOLE 2021- Yes [id number] TAKE 1 [facility] 40 mg 1-28 CAPSULE BY ity of capsule 00:00: MOUTH [place] 00 EVERY DAY Medical Branch OMEPRAZOLE 2021- Yes [id number] TAKE 1 [facility] 40 mg 1-28 CAPSULE BY ity of capsule 00:00: MOUTH [place] 00 EVERY DAY Medical Branch OMEPRAZOLE 2021- Yes [id number] TAKE 1 [facility] 40 mg 1-28 CAPSULE BY ity of capsule 00:00: MOUTH [place] 00 EVERY DAY Medical Branch OMEPRAZOLE 2021- Yes [id number] TAKE 1 [facility] 40 mg 1-28 CAPSULE BY ity of capsule 00:00: MOUTH [place] 00 EVERY DAY Medical Branch OMEPRAZOLE 2021- Yes [id number] TAKE 1 [facility] 40 mg 1-28 CAPSULE BY ity of capsule 00:00: MOUTH [place] 00 EVERY DAY Medical Branch OMEPRAZOLE 2021- Yes [id number] TAKE 1 [facility] 40 mg 1-28 CAPSULE BY ity of capsule 00:00: MOUTH [place] 00 EVERY DAY Medical Branch OMEPRAZOLE 2021- Yes [id number] TAKE 1 [facility] 40 mg 1-28 CAPSULE BY ity of capsule 00:00: MOUTH [place] 00 EVERY DAY Medical Branch OMEPRAZOLE 2021- Yes [id number] TAKE 1 [facility] 40 mg 1-28 CAPSULE BY ity of capsule 00:00: MOUTH [place] 00 EVERY DAY Medical Branch OMEPRAZOLE 2021- Yes [id number] TAKE 1 [facility] 40 mg 1-28 CAPSULE BY ity of capsule 00:00: MOUTH [place] 00 EVERY DAY Medical Branch OMEPRAZOLE 2021- Yes [id number] TAKE 1 [facility] 40 mg 1-28 CAPSULE BY ity of capsule 00:00: MOUTH [place] 00 EVERY DAY Medical Branch OMEPRAZOLE 2021- Yes [id number] TAKE 1 [facility] 40 mg 1-28 CAPSULE BY ity of capsule 00:00: MOUTH [place] 00 EVERY DAY Medical Branch OMEPRAZOLE 2021- Yes [id number] TAKE 1 [facility] 40 mg 1-28 CAPSULE BY ity of capsule 00:00: MOUTH [place] 00 EVERY DAY Medical Branch OMEPRAZOLE 2021- Yes [id number] TAKE 1 [facility] 40 mg 1-28 CAPSULE BY ity of capsule 00:00: MOUTH [place] 00 EVERY DAY Medical Branch OMEPRAZOLE 2- Yes [id number] TAKE 1 [facility] 40 mg 1-28 CAPSULE BY ity of capsule 00:00: MOUTH [place] 00 EVERY DAY Medical Branch OMEPRAZOLE 2021- Yes [id number] TAKE 1 [facility] 40 mg 1-28 CAPSULE BY ity of capsule 00:00: MOUTH [place] 00 EVERY DAY Medical Branch OMEPRAZOLE 2021- Yes [id number] TAKE 1 [facility] 40 mg 1-28 CAPSULE BY ity of capsule 00:00: MOUTH [place] 00 EVERY DAY Medical Branch OMEPRAZOLE 2021- Yes [id number] TAKE 1 [facility] 40 mg 1-28 CAPSULE BY ity of capsule 00:00: MOUTH [place] 00 EVERY DAY Medical Branch OMEPRAZOLE 2021-04 Yes [id number] TAKE 1 [facility] 40 mg 1-28 CAPSULE BY ity of capsule 00:00: MOUTH [place] 00 EVERY DAY Medical Branch OMEPRAZOLE 2021- Yes [id number] TAKE 1 [facility] 40 mg 1-28 CAPSULE BY ity of capsule 00:00: MOUTH [place] 00 EVERY DAY Medical Branch OMEPRAZOLE 2021- Yes [id number] TAKE 1 [facility] 40 mg 1-28 CAPSULE BY ity of capsule 00:00: MOUTH [place] 00 EVERY DAY Medical Branch OMEPRAZOLE 2021- Yes [id number] TAKE 1 [facility] 40 mg 1-28 CAPSULE BY ity of capsule 00:00: MOUTH [place] 00 EVERY DAY Medical Branch OMEPRAZOLE 2021- Yes [id number] TAKE 1 [facility] 40 mg 1-28 CAPSULE BY ity of capsule 00:00: MOUTH [place] 00 EVERY DAY Medical Branch OMEPRAZOLE 2021- Yes [id number] TAKE 1 [facility] 40 mg 1-28 CAPSULE BY ity of capsule 00:00: MOUTH [place] 00 EVERY DAY Medical Branch OMEPRAZOLE 2021- Yes [id number] TAKE 1 [facility] 40 mg 1-28 CAPSULE BY ity of capsule 00:00: MOUTH [place] 00 EVERY DAY Medical Branch OMEPRAZOLE 2021- Yes [id number] TAKE 1 [facility] 40 mg 1-28 CAPSULE BY ity of capsule 00:00: MOUTH [place] 00 EVERY DAY Medical Branch OMEPRAZOLE 2021- Yes [id number] TAKE 1 [facility] 40 mg 1-28 CAPSULE BY ity of capsule 00:00: MOUTH [place] 00 EVERY DAY Medical Branch OMEPRAZOLE 2021-1 Yes [id number] TAKE 1 [facility] 40 mg 1-28 CAPSULE BY ity of capsule 00:00: MOUTH [place] 00 EVERY DAY Medical Branch OMEPRAZOLE 2021- Yes [id number] TAKE 1 [facility] 40 mg 1-28 CAPSULE BY ity of capsule 00:00: MOUTH [place] 00 EVERY DAY Medical Branch OMEPRAZOLE 2021- Yes [id number] TAKE 1 [facility] 40 mg 1-28 CAPSULE BY ity of capsule 00:00: MOUTH [place] 00 EVERY DAY Medical Branch OMEPRAZOLE 2021- Yes [id number] TAKE 1 [facility] 40 mg 1-28 CAPSULE BY ity of capsule 00:00: MOUTH [place] 00 EVERY DAY Medical Branch OMEPRAZOLE 2021- Yes [id number] TAKE 1 [facility] 40 mg 1-28 CAPSULE BY ity of capsule 00:00: MOUTH [place] 00 EVERY DAY Medical Branch OMEPRAZOLE 2021- Yes [id number] TAKE 1 [facility] 40 mg 1-28 CAPSULE BY ity of capsule 00:00: MOUTH [place] 00 EVERY DAY Medical Branch OMEPRAZOLE 2021- Yes [id number] TAKE 1 [facility] 40 mg 1-28 CAPSULE BY ity of capsule 00:00: MOUTH [place] 00 EVERY DAY Medical Branch MIRTAZAPINE 2021-04 Yes [id number] TAKE 1 [facility] 7.5 mg 1-26 TABLET BY ity of tablet 00:00: MOUTH [place] 00 EVERYDAY Medical AT BEDTIME Branch MIRTAZAPINE 2021-04 Yes [id number] TAKE 1 [facility] 7.5 mg 1-26 TABLET BY ity of tablet 00:00: MOUTH [place] 00 EVERYDAY Medical AT BEDTIME Branch MIRTAZAPINE 2021- Yes [id number] TAKE 1 [facility] 7.5 mg 1-26 TABLET BY ity of tablet 00:00: MOUTH [place] 00 EVERYDAY Medical AT BEDTIME Branch MIRTAZAPINE 2021- Yes [id number] TAKE 1 [facility] 7.5 mg 1-26 TABLET BY ity of tablet 00:00: MOUTH [place] 00 EVERYDAY Medical AT BEDTIME Branch MIRTAZAPINE 2021- Yes [id number] TAKE 1 [facility] 7.5 mg 1-26 TABLET BY ity of tablet 00:00: MOUTH [place] 00 EVERYDAY Medical AT BEDTIME Branch MIRTAZAPINE 2021- Yes [id number] TAKE 1 [facility] 7.5 mg 1-26 TABLET BY [facility] tablet 00:00: MOUTH [place] 00 EVERYDAY Medical AT BEDTIME Branch MIRTAZAPINE 2021- Yes [id number] TAKE 1 [facility] 7.5 mg 1-26 TABLET BY [facility] of tablet 00:00: MOUTH [place] 00 EVERYDAY Medical AT BEDTIME Branch MIRTAZAPINE 2021-04 Yes [id number] TAKE 1 [facility] 7.5 mg 1-26 TABLET BY [facility] of tablet 00:00: MOUTH [place] 00 EVERYDAY Medical AT BEDTIME [place] MIRTAZAPINE 2021-04 Yes [id number] TAKE 1 [facility] 7.5 mg 1-26 TABLET BY [facility]y of tablet 00:00: MOUTH [place] 00 EVERYDAY Medical AT BEDTIME [place] MIRTAZAPINE 2021-04 Yes [id number] TAKE 1 [facility] 7.5 mg 1-26 TABLET BY [facility]y of tablet 00:00: MOUTH [place] 00 EVERYDAY Medical AT BEDTIME [place] MIRTAZAPINE 2021-04 Yes [id number] TAKE 1 [facility] 7.5 mg 1-26 TABLET BY [facility]y of tablet 00:00: MOUTH [place] 00 EVERYDAY Medical AT BEDTIME [place] MIRTAZAPINE 2021-04 Yes [id number] TAKE 1 [facility] 7.5 mg 1-26 TABLET BY ity of tablet 00:00: MOUTH [place] 00 EVERYDAY Medical AT [facility] MIRTAZAPINE 2021-04 Yes [id number] TAKE 1 [facility] 7.5 mg 1-26 TABLET BY ity of tablet 00:00: MOUTH [place] 00 EVERYDAY Medical AT BEDTIME [place] MIRTAZAPINE 2021-04 Yes [id number] TAKE 1 [facility] 7.5 mg 1-26 TABLET BY ity of tablet 00:00: MOUTH [place] 00 EVERYDAY Medical AT [facility] MIRTAZAPINE 2021-04 Yes [id number] TAKE 1 [facility] 7.5 mg 1-26 TABLET BY ity of tablet 00:00: MOUTH [place] 00 EVERYDAY Medical AT BEDTIME [place] MIRTAZAPINE 2021-04 Yes [id number] TAKE 1 [facility] 7.5 mg 1-26 TABLET BY ity of tablet 00:00: MOUTH [place] 00 EVERYDAY Medical AT BEDTIME [place] MIRTAZAPINE 2021-04 Yes [id number] TAKE 1 [facility] 7.5 mg 1-26 TABLET BY ity of tablet 00:00: MOUTH [place] 00 EVERYDAY Medical AT BEDTIME [place] MIRTAZAPINE 2021-04 Yes [id number] TAKE 1 [facility] 7.5 mg 1-26 TABLET BY ity of tablet 00:00: MOUTH [place] 00 EVERYDAY Medical AT BEDTIME [place] MIRTAZAPINE 2021-04 Yes [id number] TAKE 1 [facility] 7.5 mg 1-26 TABLET BY ity of tablet 00:00: MOUTH [place] 00 EVERYDAY Medical AT BEDTIME [place] MIRTAZAPINE 2021- Yes [id number] TAKE 1 [facility] 7.5 mg 1-26 TABLET BY ity of tablet 00:00: MOUTH [place] 00 EVERYDAY Medical AT BEDTIME [place] MIRTAZAPINE 2021- Yes [id number] TAKE 1 [facility] 7.5 mg 1-26 TABLET BY ity of tablet 00:00: MOUTH [place] 00 EVERYDAY Medical AT [facility] MIRTAZAPINE 2021-04 Yes [id number] TAKE 1 [facility] 7.5 mg 1-26 TABLET BY ity of tablet 00:00: MOUTH [place] 00 EVERYDAY Medical AT BEDTIME [place] MIRTAZAPINE 2021-04 Yes [id number] TAKE 1 [facility] 7.5 mg 1-26 TABLET BY ity of tablet 00:00: MOUTH [place] 00 EVERYDAY Medical AT BEDTIME [place] MIRTAZAPINE 2021- Yes [id number] TAKE 1 [facility] 7.5 mg 1-26 TABLET BY ity of tablet 00:00: MOUTH [place] 00 EVERYDAY Medical AT [facility] MIRTAZAPINE 2021- Yes [id number] TAKE 1 [facility] 7.5 mg 1-26 TABLET BY ity of tablet 00:00: MOUTH [place] 00 EVERYDAY Medical AT [facility] MIRTAZAPINE 2021- Yes [id number] TAKE 1 [facility] 7.5 mg 1-26 TABLET BY ity of tablet 00:00: MOUTH [place] 00 EVERYDAY Medical AT [facility] MIRTAZAPINE 2021- Yes [id number] TAKE 1 [facility] 7.5 mg 1-26 TABLET BY ity of tablet 00:00: MOUTH [place] [facility]- Yes [id number] TAKE 1 [facility] 7.5 mg 1-26 TABLET BY ity of tablet 00:00: MOUTH [place] 00 EVERYDAY Medical AT BEDTIME [place] MIRTAZAPINE 2021- Yes [id number] TAKE 1 [facility] 7.5 mg 1-26 TABLET BY ity of tablet 00:00: MOUTH [place] 00 EVERYDAY Medical AT BEDTIME [place] MIRTAZAPINE 2021-04 Yes [id number] TAKE 1 [facility] 7.5 mg 1-26 TABLET BY ity of tablet 00:00: MOUTH [place] 00 EVERYDAY Medical AT [facility] MIRTAZAPINE 2021-04 Yes [id number] TAKE 1 [facility] 7.5 mg 1-26 TABLET BY ity of tablet 00:00: MOUTH [place] 00 EVERYDAY Medical AT BEDTIME Branch MIRTAZAPINE 2021- Yes [id number] TAKE 1 [facility] 7.5 mg 1-26 TABLET BY ity of tablet 00:00: MOUTH [place] 00 EVERYDAY Medical AT BEDTIME Branch MIRTAZAPINE 2021- Yes [id number] TAKE 1 [facility] 7.5 mg 1-26 TABLET BY ity of tablet 00:00: MOUTH [place] 00 EVERYDAY Medical AT BEDTIME Branch MIRTAZAPINE 2021- Yes [id number] TAKE 1 [facility] 7.5 mg 1-26 TABLET BY ity of tablet 00:00: MOUTH [place] 00 EVERYDAY Medical AT BEDTIME Branch MIRTAZAPINE 2021- Yes [id number] TAKE 1 [facility] 7.5 mg 1-26 TABLET BY ity of tablet 00:00: MOUTH [place] 00 EVERYDAY Medical AT BEDTIME [place] clobetasoL 2021- Yes [id number] Apply to [facility] 0.05 % 1-09 area(s) 2 ity of cream 00:00: (two) [place] 00 times Medical daily. Branch Only to itchy areas clobetasoL 2021-04 Yes [id number] Apply to [facility] 0.05 % 1-09 area(s) 2 ity of cream 00:00: (two) [place] 00 times Medical daily. Branch Only to itchy areas clobetasoL 2021- Yes [id number] Apply to [facility] 0.05 % 1-09 area(s) 2 ity of cream 00:00: (two) [place] 00 times Medical daily. Branch Only to itchy areas clobetasoL 2021- Yes [id number] Apply to [facility] 0.05 % 1-09 area(s) 2 ity of cream 00:00: (two) [place] 00 times Medical daily. Branch Only to itchy areas clobetasoL 2021- Yes [id number] Apply to [facility] 0.05 % 1-09 area(s) 2 ity of cream 00:00: (two) [place] 00 times Medical daily. Branch Only to itchy areas clobetasoL 2021- Yes [id number] Apply to [facility] 0.05 % 1-09 area(s) 2 ity of cream 00:00: (two) [place] 00 times Medical daily. Branch Only to itchy areas clobetasoL 2021- Yes [id number] Apply to [facility] 0.05 % 1-09 area(s) 2 ity of cream 00:00: (two) [place] 00 times Medical daily. Branch Only to itchy areas clobetasoL 2022-1 Yes [id number] Apply to [facility] 0.05 % 1-09 area(s) 2 ity of cream 00:00: (two) [place] 00 times Medical daily. Branch Only to itchy areas clobetasoL 2022-1 Yes [id number] Apply to [facility] 0.05 % 1-09 area(s) 2 ity of cream 00:00: (two) [place] 00 times Medical daily. Branch Only to itchy areas clobetasoL 2-1 Yes [id number] Apply to Univers 0.05 % 1-09 area(s) 2 ity of cream 00:00: (two) [place] 00 times Medical daily. Branch Only to itchy areas clobetasoL 2022-1 Yes [id number] Apply to [facility] 0.05 % 1-09 area(s) 2 ity of cream 00:00: (two) [place] 00 times Medical daily. Branch Only to itchy areas clobetasoL 2-1 Yes [id number] Apply to Univers 0.05 % 1-09 area(s) 2 ity of cream 00:00: (two) [place] 00 times Medical daily. Branch Only to itchy areas clobetasoL 2-1 Yes [id number] Apply to Univers 0.05 % 1-09 area(s) 2 ity of cream 00:00: (two) [place] 00 times Medical daily. Branch Only to itchy areas clobetasoL 2022-1 Yes [id number] Apply to Univers 0.05 % 1-09 area(s) 2 ity of cream 00:00: (two) [place] 00 times Medical daily. Branch Only to itchy areas clobetasoL 2022-1 Yes [id number] Apply to Univers 0.05 % 1-09 area(s) 2 ity of cream 00:00: (two) [place] 00 times Medical daily. Branch Only to itchy areas clobetasoL 2022-1 Yes [id number] Apply to Univers 0.05 % 1-09 area(s) 2 ity of cream 00:00: (two) [place] 00 times Medical daily. Branch Only to itchy areas clobetasoL 2022-1 Yes [id number] Apply to Univers 0.05 % 1-09 area(s) 2 ity of cream 00:00: (two) [place] 00 times Medical daily. Branch Only to itchy areas clobetasoL 2022-1 Yes [id number] Apply to Univers 0.05 % 1-09 area(s) 2 ity of cream 00:00: (two) [place] 00 times Medical daily. Branch Only to itchy areas clobetasoL 2022-1 Yes [id number] Apply to Univers 0.05 % 1-09 area(s) 2 ity of cream 00:00: (two) [place] 00 times Medical daily. Branch Only to itchy areas clobetasoL 2022-1 Yes [id number] Apply to Univers 0.05 % 1-09 area(s) 2 ity of cream 00:00: (two) [place] 00 times Medical daily. Branch Only to itchy areas clobetasoL 2022-1 Yes [id number] Apply to Univers 0.05 % 1-09 area(s) 2 ity of cream 00:00: (two) [place] 00 times Medical daily. Branch Only to itchy areas clobetasoL 2-1 Yes [id number] Apply to Univers 0.05 % 1-09 area(s) 2 ity of cream 00:00: (two) [place] 00 times Medical daily. Branch Only to itchy areas clobetasoL 2022-1 Yes [id number] Apply to Univers 0.05 % 1-09 area(s) 2 ity of cream 00:00: (two) [place] 00 times Medical daily. Branch Only to itchy areas clobetasoL 2022-1 Yes [id number] Apply to Univers 0.05 % 1-09 area(s) 2 ity of cream 00:00: (two) [place] 00 times Medical daily. Branch Only to itchy areas clobetasoL 2022-1 Yes [id number] Apply to Univers 0.05 % 1-09 area(s) 2 ity of cream 00:00: (two) [place] 00 times Medical daily. Branch Only to itchy areas clobetasoL 2022-1 Yes [id number] Apply to Univers 0.05 % 1-09 area(s) 2 ity of cream 00:00: (two) [place] 00 times Medical daily. Branch Only to itchy areas clobetasoL 2022-1 Yes [id number] Apply to Univers 0.05 % 1-09 area(s) 2 ity of cream 00:00: (two) [place] 00 times Medical daily. Branch Only to itchy areas clobetasoL 2022-1 Yes [id number] Apply to Univers 0.05 % 1-09 area(s) 2 ity of cream 00:00: (two) [place] 00 times Medical daily. Branch Only to itchy areas clobetasoL 2022-1 Yes [id number] Apply to Univers 0.05 % 1-09 area(s) 2 ity of cream 00:00: (two) [place] 00 times Medical daily. Branch Only to itchy areas clobetasoL 2022-1 Yes [id number] Apply to Univers 0.05 % 1-09 area(s) 2 ity of cream 00:00: (two) [place] 00 times Medical daily. Branch Only to itchy areas clobetasoL 2-1 Yes [id number] Apply to Univers 0.05 % 1-09 area(s) 2 ity of cream 00:00: (two) [place] 00 times Medical daily. Branch Only to itchy areas clobetasoL 2-1 Yes [id number] Apply to Univers 0.05 % 1-09 area(s) 2 ity of cream 00:00: (two) [place] 00 times Medical daily. Branch Only to itchy areas clobetasoL 2022-1 Yes [id number] Apply to Univers 0.05 % 1-09 area(s) 2 ity of cream 00:00: (two) [place] 00 times Medical daily. Branch Only to itchy areas clobetasoL 2022-1 Yes [id number] Apply to Univers 0.05 % 1-09 area(s) 2 ity of cream 00:00: (two) [place] 00 times Medical daily. Branch Only to itchy areas clobetasoL 2022-1 Yes [id number] Apply to Univers 0.05 % 1-09 area(s) 2 ity of cream 00:00: (two) [place] 00 times Medical daily. Branch Only to itchy areas clobetasoL 2022-1 Yes [id number] Apply to Univers 0.05 % 1-09 area(s) 2 ity of cream 00:00: (two) [place] 00 times Medical daily. Branch Only to itchy areas clobetasoL 2021-1 Yes [id number] Apply to Univers 0.05 % 1-09 area(s) 2 ity of cream 00:00: (two) [place] 00 times Medical daily. Branch Only to itchy areas clobetasoL 2021-1 Yes [id number] Apply to Univers 0.05 % 1-09 area(s) 2 ity of cream 00:00: (two) [place] 00 times Medical daily. Branch Only to itchy areas clobetasoL 2021-1 Yes [id number] Apply to [facility] 0.05 % 1-09 area(s) 2 ity of cream 00:00: (two) [place] 00 times Medical daily. Branch Only to itchy areas clobetasoL 2021-1 Yes [id number] Apply to Univers 0.05 % 1-09 area(s) 2 ity of cream 00:00: (two) [place] 00 times Medical daily. Branch Only to itchy areas clobetasoL 2021-1 Yes [id number] Apply to Univers 0.05 % 1-09 area(s) 2 ity of cream 00:00: (two) [place] 00 times Medical daily. Branch Only to itchy areas EZETIMIBE 2021-04 Yes [id number] TAKE 1 U nivers 10 mg 0-14 TABLET BY ity of tablet 00:00: [facility] 00 EVERY DAY Medical Branch EZETIMIBE 2021-1 Yes [id number] TAKE 1 U nivers 10 mg 0-14 TABLET BY ity of tablet 00:00: [facility] EVERY DAY Medical Branch EZETIMIBE 2-1 Yes [id number] TAKE 1 U nivers 10 mg 0-14 TABLET BY ity of tablet 00:00: [facility] 00 EVERY DAY Medical Branch EZETIMIBE 2021-1 Yes [id number] TAKE 1 U nivers 10 mg 0-14 TABLET BY ity of tablet 00:00: [facility] 00 EVERY DAY Medical Branch EZETIMIBE 2021-1 Yes [id number] TAKE 1 U nivers 10 mg 0-14 TABLET BY ity of tablet 00:00: [facility] EVERY DAY Medical Branch EZETIMIBE 2021- Yes [id number] TAKE 1 U nivers 10 mg 0-14 TABLET BY ity of tablet 00:00: MOUTH [place] 00 EVERY DAY Medical Branch EZETIMIBE 2021- Yes [id number] TAKE 1 U nivers 10 mg 0-14 TABLET BY ity of tablet 00:00: MOUTH EVERY DAY Medical Branch EZETIMIBE 2021- Yes [id number] TAKE 1 U nivers 10 mg 0-14 TABLET BY ity of tablet 00:00: MOUTH EVERY DAY Medical Branch EZETIMIBE 2021- Yes [id number] TAKE 1 U nivers 10 mg 0-14 TABLET BY ity of tablet 00:00: MOUTH EVERY DAY Medical Branch EZETIMIBE 2021- Yes [id number] TAKE 1 U nivers 10 mg 0-14 TABLET BY ity of tablet 00:00: MOUTH EVERY DAY Medical Branch EZETIMIBE 2021- Yes [id number] TAKE 1 U nivers 10 mg 0-14 TABLET BY ity of tablet 00:00: MOUTH EVERY DAY Medical Branch EZETIMIBE 2021- Yes [id number] TAKE 1 U nivers 10 mg 0-14 TABLET BY ity of tablet 00:00: MOUTH EVERY DAY Medical Branch EZETIMIBE 2021- Yes [id number] TAKE 1 U nivers 10 mg 0-14 TABLET BY ity of tablet 00:00: MOUTH EVERY DAY Medical Branch EZETIMIBE 2021- Yes [id number] TAKE 1 U nivers 10 mg 0-14 TABLET BY ity of tablet 00:00: MOUTH EVERY DAY Medical Branch EZETIMIBE 2021- Yes [id number] TAKE 1 U nivers 10 mg 0-14 TABLET BY ity of tablet 00:00: MOUTH 00 EVERY DAY Medical Branch EZETIMIBE 2021-1 Yes [id number] TAKE 1 U nivers 10 mg 0-14 TABLET BY ity of tablet 00:00: MOUTH EVERY DAY Medical Branch EZETIMIBE 2021- Yes [id number] TAKE 1 U nivers 10 mg 0-14 TABLET BY ity of tablet 00:00: MOUTH 00 EVERY DAY Medical Branch EZETIMIBE 2021-1 Yes [id number] TAKE 1 U nivers 10 mg 0-14 TABLET BY ity of tablet 00:00: MOUTH EVERY DAY Medical Branch EZETIMIBE 2021-1 Yes [id number] TAKE 1 U nivers 10 mg 0-14 TABLET BY ity of tablet 00:00: MOUTH [place] 00 EVERY DAY Medical Branch EZETIMIBE 2- Yes [id number] TAKE 1 U nivers 10 mg 0-14 TABLET BY ity of tablet 00:00: MOUTH [place] EVERY DAY Medical Branch EZETIMIBE 2021- Yes [id number] TAKE 1 U nivers 10 mg 0-14 TABLET BY ity of tablet 00:00: MOUTH EVERY DAY Medical Branch EZETIMIBE 2021- Yes [id number] TAKE 1 U nivers 10 mg 0-14 TABLET BY ity of tablet 00:00: MOUTH 00 EVERY DAY Medical Branch EZETIMIBE 2021-04 Yes [id number] TAKE 1 U nivers 10 mg 0-14 TABLET BY ity of tablet 00:00: MOUTH [place] EVERY DAY Medical Branch EZETIMIBE 2021-04 Yes [id number] TAKE 1 U nivers 10 mg 0-14 TABLET BY ity of tablet 00:00: MOUTH [place] EVERY DAY Medical Branch EZETIMIBE 2021- Yes [id number] TAKE 1 U nivers 10 mg 0-14 TABLET BY ity of tablet 00:00: MOUTH 00 EVERY DAY Medical Branch EZETIMIBE 2021-04 Yes [id number] TAKE 1 U nivers 10 mg 0-14 TABLET BY ity of tablet 00:00: MOUTH [place] 00 EVERY DAY Medical Branch EZETIMIBE 2021- Yes [id number] TAKE 1 U nivers 10 mg 0-14 TABLET BY ity of tablet 00:00: MOUTH [place] EVERY DAY Medical Branch EZETIMIBE 2021- Yes [id number] TAKE 1 U nivers 10 mg 0-14 TABLET BY ity of tablet 00:00: MOUTH 00 EVERY DAY Medical Branch EZETIMIBE 2021- Yes [id number] TAKE 1 U nivers 10 mg 0-14 TABLET BY ity of tablet 00:00: MOUTH [place] 00 EVERY DAY Medical Branch EZETIMIBE 2021- Yes [id number] TAKE 1 U nivers 10 mg 0-14 TABLET BY ity of tablet 00:00: MOUTH [place] 00 EVERY DAY Medical Branch EZETIMIBE 2021- Yes [id number] TAKE 1 U nivers 10 mg 0-14 TABLET BY ity of tablet 00:00: MOUTH [place] 00 EVERY DAY Medical Branch EZETIMIBE 2021- Yes [id number] TAKE 1 U nivers 10 mg 0-14 TABLET BY ity of tablet 00:00: MOUTH EVERY DAY Medical Branch EZETIMIBE 2021- Yes [id number] TAKE 1 U nivers 10 mg 0-14 TABLET BY ity of tablet 00:00: MOUTH EVERY DAY Medical Branch EZETIMIBE 2021- Yes [id number] TAKE 1 U nivers 10 mg 0-14 TABLET BY ity of tablet 00:00: MOUTH EVERY DAY Medical Branch EZETIMIBE 2021- Yes [id number] TAKE 1 U nivers 10 mg 0-14 TABLET BY ity of tablet 00:00: MOUTH EVERY DAY Medical Branch EZETIMIBE 2021- Yes [id number] TAKE 1 U nivers 10 mg 0-14 TABLET BY ity of tablet 00:00: MOUTH EVERY DAY Medical Branch EZETIMIBE 2021- Yes [id number] TAKE 1 U nivers 10 mg 0-14 TABLET BY ity of tablet 00:00: MOUTH EVERY DAY Medical Branch EZETIMIBE 2021- Yes [id number] TAKE 1 U nivers 10 mg 0-14 TABLET BY ity of tablet 00:00: MOUTH EVERY DAY Medical Branch EZETIMIBE 2021- Yes [id number] TAKE 1 U nivers 10 mg 0-14 TABLET BY ity of tablet 00:00: MOUTH EVERY DAY Medical Branch EZETIMIBE 2021- Yes [id number] TAKE 1 U nivers 10 mg 0-14 TABLET BY ity of tablet 00:00: MOUTH 00 EVERY DAY Medical Branch EZETIMIBE 2021-1 Yes [id number] TAKE 1 U nivers 10 mg 0-14 TABLET BY ity of tablet 00:00: MOUTH EVERY DAY Medical Branch EZETIMIBE 2021- Yes [id number] TAKE 1 U nivers 10 mg 0-14 TABLET BY ity of tablet 00:00: MOUTH 00 EVERY DAY Medical Branch EZETIMIBE 2021-1 Yes [id number] TAKE 1 U nivers 10 mg 0-14 TABLET BY ity of tablet 00:00: MOUTH EVERY DAY Medical Branch EZETIMIBE 2021 Yes [id number] TAKE 1 U nivers 10 mg 0-14 TABLET BY ity of tablet 00:00: MOUTH [place] 00 EVERY DAY Medical Branch allopurinoL 2021-04 Yes [id number] 100mg Take 1 [facility] 100 mg 0-10 [id number] tablet by ity of tablet 00:00: mouth in [place] 00 the Medical morning. Branch nitroglycer 2021-[id number] 1 [facility] in 0.4 mg 0-10 TABLET ity of sublingual 00:00: UNDER THE [place] tablet 00 TONGUE Medical EVERY 5 Branch MINUTES NEEDED FOR CHEST PAIN FOR 3 DOSES. IF NO RELIEF, CALL 911. triamcinolo 2021-04 Yes [id number] Apply to Univers ne 0.5 % 0-10 area(s) 3 ity of cream 00:00: (three) [place] 00 times Medical daily. Branch sucralfate 2021-04 Yes [id number] TAKE 1 U nivers 1 gram 0-10 TABLET BY ity of tablet 00:00: MOUTH 4 [place] 00 TIMES A Medical DAY Branch allopurinoL 2021-04 Yes [id number] 100mg Take 1 [facility] 100 mg 0-10 [id number] tablet by ity of tablet 00:00: mouth in [place] 00 the Medical morning. Branch nitroglycer 2021-[id number] 1 [facility] in 0.4 mg 0-10 TABLET ity of sublingual 00:00: UNDER THE [place] tablet 00 TONGUE Medical EVERY 5 Branch MINUTES NEEDED FOR CHEST PAIN FOR 3 DOSES. IF NO RELIEF, CALL 911. triamcinolo 2021-04 Yes [id number] Apply to Univers ne 0.5 % 0-10 area(s) 3 ity of cream 00:00: (three) [place] 00 times Medical daily. Branch sucralfate 2021-04 Yes [id number] TAKE 1 U nivers 1 gram 0-10 TABLET BY ity of tablet 00:00: MOUTH 4 [place] 00 TIMES A Medical DAY Branch allopurinoL 2021-04 Yes [id number] 100mg Take 1 [facility] 100 mg 0-10 [id number] tablet by ity of tablet 00:00: mouth in [place] 00 the Medical morning. Branch nitroglycer 2021-[id number] 1 [facility] in 0.4 mg 0-10 TABLET ity of sublingual 00:00: UNDER THE [place] tablet 00 TONGUE Medical EVERY 5 Branch MINUTES NEEDED FOR CHEST PAIN FOR 3 DOSES. IF NO RELIEF, CALL 911. triamcinolo 2021-04 Yes [id number] Apply to Univers ne 0.5 % 0-10 area(s) 3 ity of cream 00:00: (three) [place] 00 times Medical daily. Branch sucralfate 2021-04 Yes [id number] TAKE 1 U nivers 1 gram 0-10 TABLET BY ity of tablet 00:00: MOUTH 4 [place] 00 TIMES A Medical DAY Branch allopurinoL 2021-04 Yes [id number] 100mg Take 1 [facility] 100 mg 0-10 [id number] tablet by ity of tablet 00:00: mouth in [place] 00 the Medical morning. Branch nitroglycer 2021-[id number] 1 [facility] in 0.4 mg 0-10 TABLET ity of sublingual 00:00: UNDER THE [place] tablet 00 TONGUE Medical EVERY 5 Branch MINUTES NEEDED FOR CHEST PAIN FOR 3 DOSES. IF NO RELIEF, CALL 911. triamcinolo 2021-04 Yes [id number] Apply to Univers ne 0.5 % 0-10 area(s) 3 ity of cream 00:00: (three) [place] 00 times Medical daily. Branch sucralfate 2021-04 Yes [id number] TAKE 1 U nivers 1 gram 0-10 TABLET BY ity of tablet 00:00: MOUTH 4 [place] 00 TIMES A Medical DAY Branch allopurinoL 2021-04 Yes [id number] 100mg Take 1 [facility] 100 mg 0-10 [id number] tablet by ity of tablet 00:00: mouth in [place] 00 the Medical morning. Branch nitroglycer 2021-[id number] 1 [facility] in 0.4 mg 0-10 TABLET ity of sublingual 00:00: UNDER THE [place] tablet 00 TONGUE Medical EVERY 5 Branch MINUTES NEEDED FOR CHEST PAIN FOR 3 DOSES. IF NO RELIEF, CALL 911. triamcinolo 2021-04 Yes [id number] Apply to [facility] ne 0.5 % 0-10 area(s) 3 ity of cream 00:00: (three) [place] 00 times Medical daily. Branch sucralfate 2021-04 Yes [id number] TAKE 1 U nivers 1 gram 0-10 TABLET BY ity of tablet 00:00: MOUTH 4 [place] 00 TIMES A Medical DAY Branch allopurinoL 2021-04 Yes [id number] 100mg Take 1 [facility] 100 mg 0-10 [id number] tablet by ity of tablet 00:00: mouth in [place] 00 the Medical morning. Branch nitroglycer 2021-[id number] 1 [facility] in 0.4 mg 0-10 TABLET ity of sublingual 00:00: UNDER THE [place] tablet 00 TONGUE Medical EVERY 5 Branch MINUTES NEEDED FOR CHEST PAIN FOR 3 DOSES. IF NO RELIEF, CALL 911. triamcinolo 2021-04 Yes [id number] Apply to Univers ne 0.5 % 0-10 area(s) 3 ity of cream 00:00: (three) [place] 00 times Medical daily. Branch sucralfate 2021-04 Yes [id number] TAKE 1 U nivers 1 gram 0-10 TABLET BY ity of tablet 00:00: MOUTH 4 [place] 00 TIMES A Medical DAY Branch allopurinoL 2021-04 Yes [id number] 100mg Take 1 [facility] 100 mg 0-10 [id number] tablet by ity of tablet 00:00: mouth in [place] 00 the Medical morning. Branch nitroglycer 2021-[id number] 1 [facility] in 0.4 mg 0-10 TABLET ity of sublingual 00:00: UNDER THE [place] tablet 00 TONGUE Medical EVERY 5 Branch MINUTES NEEDED FOR CHEST PAIN FOR 3 DOSES. IF NO RELIEF, CALL 911. triamcinolo 2021-04 Yes [id number] Apply to [facility] ne 0.5 % 0-10 area(s) 3 ity of cream 00:00: (three) [place] 00 times Medical daily. Branch sucralfate 2021-04 Yes [id number] TAKE 1 U nivers 1 gram 0-10 TABLET BY ity of tablet 00:00: MOUTH 4 [place] 00 TIMES A Medical DAY Branch allopurinoL 2021-04 Yes [id number] 100mg Take 1 [facility] 100 mg 0-10 [id number] tablet by ity of tablet 00:00: mouth in [place] 00 the Medical morning. Branch nitroglycer 2021-[id number] 1 [facility] in 0.4 mg 0-10 TABLET ity of sublingual 00:00: UNDER THE [place] tablet 00 TONGUE Medical EVERY 5 Branch MINUTES NEEDED FOR CHEST PAIN FOR 3 DOSES. IF NO RELIEF, CALL 911. triamcinolo 2021-04 Yes [id number] Apply to Univers ne 0.5 % 0-10 area(s) 3 ity of cream 00:00: (three) [place] 00 times Medical daily. Branch sucralfate 2021-04 Yes [id number] TAKE 1 U nivers 1 gram 0-10 TABLET BY ity of tablet 00:00: MOUTH 4 [place] 00 TIMES A Medical DAY Branch allopurinoL 2021-04 Yes [id number] 100mg Take 1 [facility] 100 mg 0-10 [id number] tablet by ity of tablet 00:00: mouth in [place] 00 the Medical morning. Branch nitroglycer 2021-[id number] 1 [facility] in 0.4 mg 0-10 TABLET ity of sublingual 00:00: UNDER THE [place] tablet 00 TONGUE Medical EVERY 5 Branch MINUTES NEEDED FOR CHEST PAIN FOR 3 DOSES. IF NO RELIEF, CALL 911. triamcinolo 2021-04 Yes [id number] Apply to Univers ne 0.5 % 0-10 area(s) 3 ity of cream 00:00: (three) [place] 00 times Medical daily. Branch sucralfate 2021-04 Yes [id number] TAKE 1 U nivers 1 gram 0-10 TABLET BY ity of tablet 00:00: MOUTH 4 [place] 00 TIMES A Medical DAY Branch allopurinoL 2021-04 Yes [id number] 100mg Take 1 [facility] 100 mg 0-10 [id number] tablet by ity of tablet 00:00: mouth in [place] 00 the Medical morning. Branch nitroglycer 2021-[id number] 1 [facility] in 0.4 mg 0-10 TABLET ity of sublingual 00:00: UNDER THE [place] tablet 00 TONGUE Medical EVERY 5 Branch MINUTES NEEDED FOR CHEST PAIN FOR 3 DOSES. IF NO RELIEF, CALL 911. triamcinolo 2021-04 Yes [id number] Apply to Univers ne 0.5 % 0-10 area(s) 3 ity of cream 00:00: (three) [place] 00 times Medical daily. Branch sucralfate 2021-04 Yes [id number] TAKE 1 U nivers 1 gram 0-10 TABLET BY ity of tablet 00:00: MOUTH 4 [place] 00 TIMES A Medical DAY Branch allopurinoL 2021-04 Yes [id number] 100mg Take 1 [facility] 100 mg 0-10 [id number] tablet by ity of tablet 00:00: mouth in [place] 00 the Medical morning. Branch nitroglycer 2021-[id number] 1 [facility] in 0.4 mg 0-10 TABLET ity of sublingual 00:00: UNDER THE [place] tablet 00 TONGUE Medical EVERY 5 Branch MINUTES NEEDED FOR CHEST PAIN FOR 3 DOSES. IF NO RELIEF, CALL 911. triamcinolo 2021-04 Yes [id number] Apply to [facility] ne 0.5 % 0-10 area(s) 3 ity of cream 00:00: (three) [place] 00 times Medical daily. Branch sucralfate 2021-04 Yes [id number] TAKE 1 U nivers 1 gram 0-10 TABLET BY ity of tablet 00:00: MOUTH 4 [place] 00 TIMES A Medical DAY Branch allopurinoL 2021-04 Yes [id number] 100mg Take 1 [facility] 100 mg 0-10 [id number] tablet by ity of tablet 00:00: mouth in [place] the Medical morning. Branch nitroglycer 2021-[id number] 1 [facility] in 0.4 mg 0-10 TABLET ity of sublingual 00:00: UNDER THE [place] tablet 00 TONGUE Medical EVERY 5 Branch MINUTES NEEDED FOR CHEST PAIN FOR 3 DOSES. IF NO RELIEF, CALL 911. triamcinolo 2021-04 Yes [id number] Apply to Univers ne 0.5 % 0-10 area(s) 3 ity of cream 00:00: (three) [place] 00 times Medical daily. Branch sucralfate 2021-04 Yes [id number] TAKE 1 U nivers 1 gram 0-10 TABLET BY [facility] tablet 00:00: MOUTH 4 [place] 00 TIMES A Medical DAY Branch allopurinoL 2021-04 Yes [id number] 100mg Take 1 [facility] 100 mg 0-10 [id number] tablet by [facility] tablet 00:00: mouth in [place] 00 the Medical morning. Branch nitroglycer 2021-[id number] 1 [facility] in 0.4 mg 0-10 TABLET [facility] of sublingual 00:00: UNDER THE [place] tablet 00 TONGUE Medical EVERY 5 Branch MINUTES NEEDED FOR CHEST PAIN FOR 3 DOSES. IF NO RELIEF, CALL 911. triamcinolo 2021-04 Yes [id number] Apply to [facility] ne 0.5 % 0-10 area(s) 3 [facility] of cream 00:00: (three) [place] 00 times Medical daily. Branch sucralfate 2021-04 Yes [id number] TAKE 1 [facility] 1 gram 0-10 TABLET BY [facility] tablet 00:00: MOUTH 4 [place] 00 TIMES A Medical DAY Branch allopurinoL 2021-04 Yes [id number] 100mg Take 1 [facility] 100 mg 0-10 [id number] tablet by [facility] tablet 00:00: mouth in [place] 00 the Medical morning. Branch nitroglycer 2021-[id number] 1 [facility] in 0.4 mg 0-10 TABLET [facility] of sublingual 00:00: UNDER THE [place] tablet 00 TONGUE Medical EVERY 5 Branch MINUTES NEEDED FOR CHEST PAIN FOR 3 DOSES. IF NO RELIEF, CALL 911. triamcinolo 2021-04 Yes [id number] Apply to [facility] ne 0.5 % 0-10 area(s) 3 [facility] of cream 00:00: (three) [place] 00 times Medical daily. Branch sucralfate 2021-04 Yes [id number] TAKE 1 [facility] 1 gram 0-10 TABLET BY [facility] tablet 00:00: MOUTH 4 [place] 00 TIMES A Medical DAY Branch allopurinoL 2021-04 Yes [id number] 100mg Take 1 [facility] 100 mg 0-10 [id number] tablet by [facility] tablet 00:00: mouth in [place] 00 the Medical morning. Branch nitroglycer 2021-[id number] 1 [facility] in 0.4 mg 0-10 TABLET [facility] of sublingual 00:00: UNDER THE [place] tablet 00 TONGUE Medical EVERY 5 Branch MINUTES NEEDED FOR CHEST PAIN FOR 3 DOSES. IF NO RELIEF, CALL 911. triamcinolo 2021-04 Yes [id number] Apply to [facility] ne 0.5 % 0-10 area(s) 3 [facility] of cream 00:00: (three) [place] 00 times Medical daily. Branch sucralfate 2021-04 Yes [id number] TAKE 1 [facility] 1 gram 0-10 TABLET BY [facility] of tablet 00:00: MOUTH 4 [place] 00 TIMES A Medical DAY Branch allopurinoL 2021-04 Yes [id number] 100mg Take 1 [facility] 100 mg 0-10 [id number] tablet by [facility] tablet 00:00: mouth in [place] 00 the Medical morning. Branch nitroglycer 2021-[id number] 1 [facility] in 0.4 mg 0-10 TABLET [facility] of sublingual 00:00: UNDER THE [place] tablet 00 TONGUE Medical EVERY 5 Branch MINUTES NEEDED FOR CHEST PAIN FOR 3 DOSES. IF NO RELIEF, CALL 911. triamcinolo 2021-04 Yes [id number] Apply to [facility] ne 0.5 % 0-10 area(s) 3 [facility] of cream 00:00: (three) [place] 00 times Medical daily. Branch sucralfate 2021-04 Yes [id number] TAKE 1 [facility] 1 gram 0-10 TABLET BY [facility] of tablet 00:00: MOUTH 4 [place] 00 TIMES A Medical DAY Branch allopurinoL 2021-04 Yes [id number] 100mg Take 1 [facility] 100 mg 0-10 [id number] tablet by [facility] tablet 00:00: mouth in [place] 00 the Medical morning. Branch nitroglycer 2021-[id number] 1 [facility] in 0.4 mg 0-10 TABLET [facility] of sublingual 00:00: UNDER THE [place] tablet 00 TONGUE Medical EVERY 5 Branch MINUTES NEEDED FOR CHEST PAIN FOR 3 DOSES. IF NO RELIEF, CALL 911. triamcinolo 2021-04 Yes [id number] Apply to [facility] ne 0.5 % 0-10 area(s) 3 [facility] of cream 00:00: (three) [place] 00 times Medical daily. Branch sucralfate 2021-04 Yes [id number] TAKE 1 [facility] 1 gram 0-10 TABLET BY [facility] of tablet 00:00: MOUTH 4 [place] 00 TIMES A Medical DAY Branch allopurinoL 2021-04 Yes [id number] 100mg Take 1 [facility] 100 mg 0-10 [id number] tablet by [facility] of tablet 00:00: mouth in [place] 00 the Medical morning. Branch nitroglycer 2021-[id number] 1 [facility] in 0.4 mg 0-10 TABLET [facility] of sublingual 00:00: UNDER THE [place] tablet 00 TONGUE Medical EVERY 5 Branch MINUTES NEEDED FOR CHEST PAIN FOR 3 DOSES. IF NO RELIEF, CALL 911. triamcinolo 2021-04 Yes [id number] Apply to [facility] ne 0.5 % 0-10 area(s) 3 [facility] of cream 00:00: (three) [place] 00 times Medical daily. Branch sucralfate 2021-04 Yes [id number] TAKE 1 [facility] 1 gram 0-10 TABLET BY [facility] of tablet 00:00: MOUTH 4 [place] 00 TIMES A Medical DAY Branch allopurinoL 2021-04 Yes [id number] 100mg Take 1 [facility] 100 mg 0-10 [id number] tablet by [facility] tablet 00:00: mouth in [place] 00 the Medical morning. Branch nitroglycer 2021-[id number] 1 [facility] in 0.4 mg 0-10 TABLET [facility] of sublingual 00:00: UNDER THE [place] tablet 00 TONGUE Medical EVERY 5 Branch MINUTES NEEDED FOR CHEST PAIN FOR 3 DOSES. IF NO RELIEF, CALL 911. triamcinolo 2021-04 Yes [id number] Apply to [facility] ne 0.5 % 0-10 area(s) 3 [facility] of cream 00:00: (three) [place] 00 times Medical daily. Branch sucralfate 2021-04 Yes [id number] TAKE 1 [facility] 1 gram 0-10 TABLET BY [facility] of tablet 00:00: MOUTH 4 [place] 00 TIMES A Medical DAY Branch allopurinoL 2021-04 Yes [id number] 100mg Take 1 [facility] 100 mg 0-10 [id number] tablet by [facility] tablet 00:00: mouth in [place] 00 the Medical morning. Branch nitroglycer 2021-[id number] 1 [facility] in 0.4 mg 0-10 TABLET ity of sublingual 00:00: UNDER THE [place] tablet 00 TONGUE Medical EVERY 5 Branch MINUTES NEEDED FOR CHEST PAIN FOR 3 DOSES. IF NO RELIEF, CALL 911. triamcinolo 2021-04 Yes [id number] Apply to [facility] ne 0.5 % 0-10 area(s) 3 [facility] of cream 00:00: (three) [place] 00 times Medical daily. Branch sucralfate 2021-04 Yes [id number] TAKE 1 [facility] 1 gram 0-10 TABLET BY [facility] of tablet 00:00: MOUTH 4 [place] 00 TIMES A Medical DAY Branch allopurinoL 2021-04 Yes [id number] 100mg Take 1 [facility] 100 mg 0-10 [id number] tablet by [facility] tablet 00:00: mouth in [place] 00 the Medical morning. Branch nitroglycer 2021-[id number] 1 [facility] in 0.4 mg 0-10 TABLET [facility] of sublingual 00:00: UNDER THE [place] tablet 00 TONGUE Medical EVERY 5 Branch MINUTES NEEDED FOR CHEST PAIN FOR 3 DOSES. IF NO RELIEF, CALL 911. triamcinolo 2021-04 Yes [id number] Apply to [facility] ne 0.5 % 0-10 area(s) 3 [facility] of cream 00:00: (three) [place] 00 times Medical daily. Branch sucralfate 2021-04 Yes [id number] TAKE 1 [facility] 1 gram 0-10 TABLET BY [facility] of tablet 00:00: MOUTH 4 [place] 00 TIMES A Medical DAY Branch allopurinoL 2021-04 Yes [id number] 100mg Take 1 [facility] 100 mg 0-10 [id number] tablet by [facility] of tablet 00:00: mouth in [place] 00 the Medical morning. Branch nitroglycer 2021-[id number] 1 [facility] in 0.4 mg 0-10 TABLET [facility] of sublingual 00:00: UNDER THE [place] tablet 00 TONGUE Medical EVERY 5 Branch MINUTES NEEDED FOR CHEST PAIN FOR 3 DOSES. IF NO RELIEF, CALL 911. triamcinolo 2021-04 Yes [id number] Apply to [facility] ne 0.5 % 0-10 area(s) 3 [facility] of cream 00:00: (three) [place] 00 times Medical daily. Branch sucralfate 2021-04 Yes [id number] TAKE 1 [facility] 1 gram 0-10 TABLET BY [facility] of tablet 00:00: MOUTH 4 [place] 00 TIMES A Medical DAY Branch allopurinoL 2021-04 Yes [id number] 100mg Take 1 [facility] 100 mg 0-10 [id number] tablet by [facility] of tablet 00:00: mouth in [place] 00 the Medical morning. Branch nitroglycer 2021-[id number] 1 [facility] in 0.4 mg 0-10 TABLET it[facility] of sublingual 00:00: UNDER THE [place] tablet 00 TONGUE Medical EVERY 5 Branch MINUTES NEEDED FOR CHEST PAIN FOR 3 DOSES. IF NO RELIEF, CALL 911. triamcinolo 2021-04 Yes [id number] Apply to [facility] ne 0.5 % 0-10 area(s) 3 [facility] of cream 00:00: (three) [place] 00 times Medical daily. Branch sucralfate 2021-04 Yes [id number] TAKE 1 [facility] 1 gram 0-10 TABLET BY [facility] of tablet 00:00: MOUTH 4 [place] 00 TIMES A Medical DAY Branch allopurinoL 2021-04 Yes [id number] 100mg Take 1 [facility] 100 mg 0-10 [id number] tablet by [facility] of tablet 00:00: mouth in [place] 00 the Medical morning. Branch nitroglycer 2021-[id number] 1 [facility] in 0.4 mg 0-10 TABLET it[facility] of sublingual 00:00: UNDER THE [place] tablet 00 TONGUE Medical EVERY 5 Branch MINUTES NEEDED FOR CHEST PAIN FOR 3 DOSES. IF NO RELIEF, CALL 911. triamcinolo 2021-04 Yes [id number] Apply to [facility] ne 0.5 % 0-10 area(s) 3 [facility] of cream 00:00: (three) [place] 00 times Medical daily. Branch sucralfate 2021-04 Yes [id number] TAKE 1 [facility] 1 gram 0-10 TABLET BY [facility] of tablet 00:00: MOUTH 4 [place] 00 TIMES A Medical DAY Branch allopurinoL 2021-04 Yes [id number] 100mg Take 1 [facility] 100 mg 0-10 [id number] tablet by [facility] of tablet 00:00: mouth in [place] 00 the Medical morning. Branch nitroglycer 2021-[id number] 1 [facility] in 0.4 mg 0-10 TABLET ity of sublingual 00:00: UNDER THE [place] tablet 00 TONGUE Medical EVERY 5 Branch MINUTES NEEDED FOR CHEST PAIN FOR 3 DOSES. IF NO RELIEF, CALL 911. triamcinolo 2021-04 Yes [id number] Apply to [facility] ne 0.5 % 0-10 area(s) 3 [facility] of cream 00:00: (three) [place] 00 times Medical daily. Branch sucralfate 2021-04 Yes [id number] TAKE 1 [facility] 1 gram 0-10 TABLET BY [facility] of tablet 00:00: MOUTH 4 [place] 00 TIMES A Medical DAY Branch allopurinoL 2021-04 Yes [id number] 100mg Take 1 [facility] 100 mg 0-10 [id number] tablet by [facility] of tablet 00:00: mouth in [place] 00 the Medical morning. Branch nitroglycer 2021-[id number] 1 [facility] in 0.4 mg 0-10 TABLET ity of sublingual 00:00: UNDER THE [place] tablet 00 TONGUE Medical EVERY 5 Branch MINUTES NEEDED FOR CHEST PAIN FOR 3 DOSES. IF NO RELIEF, CALL 911. triamcinolo 2021-04 Yes [id number] Apply to [facility] ne 0.5 % 0-10 area(s) 3 [facility]y of cream 00:00: (three) [place] 00 times Medical daily. Branch sucralfate 2021-04 Yes [id number] TAKE 1 [facility] 1 gram 0-10 TABLET BY [facility] of tablet 00:00: MOUTH 4 [place] 00 TIMES A Medical DAY Branch allopurinoL 2021-04 Yes [id number] 100mg Take 1 [facility] 100 mg 0-10 [id number] tablet by [facility] of tablet 00:00: mouth in [place] 00 the Medical morning. Branch nitroglycer 2021-[id number] 1 [facility] in 0.4 mg 0-10 TABLET ity of sublingual 00:00: UNDER THE [place] tablet 00 TONGUE Medical EVERY 5 Branch MINUTES NEEDED FOR CHEST PAIN FOR 3 DOSES. IF NO RELIEF, CALL 911. triamcinolo 2021-04 Yes [id number] Apply to [facility] ne 0.5 % 0-10 area(s) 3 ity of cream 00:00: (three) [place] 00 times Medical daily. Branch sucralfate 2021-04 Yes [id number] TAKE 1 [facility] 1 gram 0-10 TABLET BY [facility] of tablet 00:00: MOUTH 4 [place] 00 TIMES A Medical DAY Branch allopurinoL 2021-04 Yes [id number] 100mg Take 1 [facility] 100 mg 0-10 [id number] tablet by [facility] of tablet 00:00: mouth in [place] 00 the Medical morning. Branch nitroglycer 2021-[id number] 1 [facility] in 0.4 mg 0-10 TABLET ity of sublingual 00:00: UNDER THE [place] tablet 00 TONGUE Medical EVERY 5 Branch MINUTES NEEDED FOR CHEST PAIN FOR 3 DOSES. IF NO RELIEF, CALL 911. triamcinolo 2021-04 Yes [id number] Apply to [facility] ne 0.5 % 0-10 area(s) 3 ity of cream 00:00: (three) [place] 00 times Medical daily. Branch sucralfate 2021-04 Yes [id number] TAKE 1 [facility] 1 gram 0-10 TABLET BY [facility] of tablet 00:00: MOUTH 4 [place] 00 TIMES A Medical DAY Branch allopurinoL 2021-04 Yes [id number] 100mg Take 1 [facility] 100 mg 0-10 [id number] tablet by [facility] of tablet 00:00: mouth in [place] 00 the Medical morning. Branch nitroglycer 2021-[id number] 1 [facility] in 0.4 mg 0-10 TABLET ity of sublingual 00:00: UNDER THE [place] tablet 00 TONGUE Medical EVERY 5 Branch MINUTES NEEDED FOR CHEST PAIN FOR 3 DOSES. IF NO RELIEF, CALL 911. triamcinolo 2021-04 Yes [id number] Apply to [facility] ne 0.5 % 0-10 area(s) 3 ity of cream 00:00: (three) [place] 00 times Medical daily. Branch sucralfate 2021-04 Yes [id number] TAKE 1 [facility] 1 gram 0-10 TABLET BY [facility] of tablet 00:00: MOUTH 4 [place] 00 TIMES A Medical DAY Branch allopurinoL 2021-04 Yes [id number] 100mg Take 1 [facility] 100 mg 0-10 [id number] tablet by [facility] of tablet 00:00: mouth in [place] 00 the Medical morning. Branch nitroglycer 2021-[id number] 1 [facility] in 0.4 mg 0-10 TABLET ity of sublingual 00:00: UNDER THE [place] tablet 00 TONGUE Medical EVERY 5 Branch MINUTES NEEDED FOR CHEST PAIN FOR 3 DOSES. IF NO RELIEF, CALL 911. triamcinolo 2021-04 Yes [id number] Apply to [facility] ne 0.5 % 0-10 area(s) 3 ity of cream 00:00: (three) [place] 00 times Medical daily. Branch sucralfate 2021-04 Yes [id number] TAKE 1 [facility] 1 gram 0-10 TABLET BY [facility] of tablet 00:00: MOUTH 4 [place] 00 TIMES A Medical DAY Branch allopurinoL 2021-04 Yes [id number] 100mg Take 1 [facility] 100 mg 0-10 [id number] tablet by [facility] of tablet 00:00: mouth in [place] 00 the Medical morning. Branch nitroglycer 2021-[id number] 1 [facility] in 0.4 mg 0-10 TABLET ity of sublingual 00:00: UNDER THE [place] tablet 00 TONGUE Medical EVERY 5 Branch MINUTES NEEDED FOR CHEST PAIN FOR 3 DOSES. IF NO RELIEF, CALL 911. triamcinolo 2021-04 Yes [id number] Apply to [facility] ne 0.5 % 0-10 area(s) 3 ity of cream 00:00: (three) [place] 00 times Medical daily. Branch sucralfate 2021-04 Yes [id number] TAKE 1 [facility] 1 gram 0-10 TABLET BY [facility] of tablet 00:00: MOUTH 4 [place] TIMES A Medical DAY Branch sucralfate 2021-04 Yes [id number] TAKE 1 [facility] 1 gram 0-10 TABLET BY [facility] of tablet 00:00: MOUTH 4 [place] TIMES A Medical DAY Branch sucralfate 2021-04 Yes [id number] TAKE 1 [facility] 1 gram 0-10 TABLET BY [facility] of tablet 00:00: MOUTH 4 [place] TIMES A Medical DAY Branch sucralfate 2021-04 Yes [id number] TAKE 1 [facility] 1 gram 0-10 TABLET BY [facility] of tablet 00:00: MOUTH 4 [place] TIMES A Medical DAY Branch sucralfate 2021-04 Yes [id number] TAKE 1 [facility] 1 gram 0-10 TABLET BY [facility] of tablet 00:00: MOUTH 4 [place] TIMES A Medical DAY Branch sucralfate 2021-04 Yes [id number] TAKE 1 [facility] 1 gram 0-10 TABLET BY [facility] of tablet 00:00: MOUTH 4 [place] TIMES A Medical DAY Branch sucralfate 2021-04 Yes [id number] TAKE 1 [facility] 1 gram 0-10 TABLET BY [facility]y of tablet 00:00: MOUTH 4 [place] TIMES A Medical DAY Branch sucralfate 2021-04 Yes [id number] TAKE 1 [facility] 1 gram 0-10 TABLET BY [facility] of tablet 00:00: MOUTH 4 [place] TIMES A Medical DAY Branch sucralfate 2021-04 Yes [id number] TAKE 1 [facility] 1 gram 0-10 TABLET BY [facility] of tablet 00:00: MOUTH 4 [place] TIMES A Medical DAY Branch sucralfate 2021-04 Yes [id number] TAKE 1 [facility] 1 gram 0-10 TABLET BY [facility]y of tablet 00:00: MOUTH 4 [place] TIMES A Medical DAY Branch sucralfate 2021-04 Yes [id number] TAKE 1 [facility] 1 gram 0-10 TABLET BY [facility]y of tablet 00:00: MOUTH 4 [place] TIMES A Medical DAY Branch sucralfate 2021-04 Yes [id number] TAKE 1 [facility] 1 gram 0-10 TABLET BY [facility] of tablet 00:00: MOUTH 4 [place] TIMES A Medical DAY Branch sucralfate 2021-04 Yes [id number] TAKE 1 [facility] 1 gram 0-10 TABLET BY [facility]y of tablet 00:00: MOUTH 4 [place] TIMES A Medical DAY Branch sucralfate 2021-04 Yes [id number] TAKE 1 [facility] 1 gram 0-10 TABLET BY [facility] of tablet 00:00: MOUTH 4 [place] 00 TIMES A Medical DAY Branch sucralfate 2021-04 Yes [id number] TAKE 1 [facility] 1 gram 0-10 TABLET BY [facility]y of tablet 00:00: MOUTH 4 [place] 00 TIMES A Medical DAY Branch sucralfate 2021-04 Yes [id number] TAKE 1 [facility] 1 gram 0-10 TABLET BY [facility]y of tablet 00:00: MOUTH 4 [place] 00 TIMES A Medical DAY Branch allopurinoL 2021-04- No [id number] 100mg Take 1 [facility] 100 mg 0-10 -10 [id number] tablet by [facility] of tablet 00:00: 00:00 mouth in [place] 00 :00 the Medical morning. Branch nitroglycer 2021-04- No [id number] PLACE 1 [facility] in 0.4 mg 0-10 01-10 TABLET ity of sublingual 00:00: 00:00 UNDER THE [place] tablet 00 :00 TONGUE Medical EVERY 5 Branch MINUTES NEEDED FOR CHEST PAIN FOR 3 DOSES. IF NO RELIEF, CALL 911. triamcinolo 2021-04- No [id number] Apply to [facility] ne 0.5 % 0-10 -10 area(s) 3 ity o f cream 00:00: 00:00 (three) [place] 00 :00 times Medical daily. Branch allopurinoL 2021-04- No [id number] 100mg Take 1 [facility] 100 mg 0-10 -00 tablet by [facility] of tablet 00:00: 00:00 mouth in [place] 00 :00 the Medical morning. Branch nitroglycer 2021-04- No [id number] PLACE 1 [facility] in 0.4 mg 0-10 01-10 TABLET ity of sublingual 00:00: 00:00 UNDER THE [place] tablet 00 :00 TONGUE Medical EVERY 5 Branch MINUTES NEEDED FOR CHEST PAIN FOR 3 DOSES. IF NO RELIEF, CALL 911. triamcinolo 2021-04- No [id number] Apply to [facility] ne 0.5 % 0-10 01-10 area(s) 3 ity o f cream 00:00: 00:00 (three) [place] 00 :00 times Medical daily. Branch furosemide 2021-04 Yes [id number] 20mg Take 1 [facility] 20 mg 0-03 tablet by [facility] of tablet 00:00: mouth as [place] 00 needed Medical (swelling) Branch . furosemide 2021-04 Yes [id number] 20mg Take 1 [facility] 20 mg 0-03 tablet by [facility] of tablet 00:00: mouth as [place] 00 needed Medical (swelling) Branch . furosemide 2021-04 Yes [id number] 20mg Take 1 [facility] 20 mg 0-03 tablet by [facility] of tablet 00:00: mouth as [place] 00 needed Medical (swelling) Branch . furosemide 2021-04 Yes [id number] 20mg Take 1 [facility] 20 mg 0-03 tablet by [facility] of tablet 00:00: mouth as [place] 00 needed Medical (swelling) Branch . furosemide 2021-04 Yes [id number] 20mg Take 1 [facility] 20 mg 0-03 tablet by [facility] of tablet 00:00: mouth as [place] 00 needed Medical (swelling) Branch . furosemide 2021-04 Yes [id number] 20mg Take 1 [facility] 20 mg 0-03 tablet by [facility] of tablet 00:00: mouth as [place] 00 needed Medical (swelling) Branch . furosemide 2021-04 Yes [id number] 20mg Take 1 [facility] 20 mg 0-03 tablet by [facility] of tablet 00:00: mouth as [place] 00 needed Medical (swelling) Branch . furosemide 2021-04 Yes [id number] 20mg Take 1 [facility] 20 mg 0-03 tablet by [facility] of tablet 00:00: mouth as [place] 00 needed Medical (swelling) Branch . furosemide 2021-04 Yes [id number] 20mg Take 1 [facility] 20 mg 0-03 tablet by [facility] of tablet 00:00: mouth as [place] 00 needed Medical (swelling) Branch . furosemide 2021-04 Yes [id number] 20mg Take 1 [facility] 20 mg 0-03 tablet by [facility] of tablet 00:00: mouth as [place] 00 needed Medical (swelling) Branch . furosemide 2021-04 Yes [id number] 20mg Take 1 [facility] 20 mg 0-03 tablet by [facility] of tablet 00:00: mouth as [place] 00 needed Medical (swelling) Branch . furosemide 2021-04 Yes [id number] 20mg Take 1 [facility] 20 mg 0-03 tablet by [facility] of tablet 00:00: mouth as [place] 00 needed Medical (swelling) Branch . furosemide 2022-1 Yes [id number] 20mg Take 1 [facility] 20 mg 0-03 tablet by [facility] of tablet 00:00: mouth as [place] 00 needed Medical (swelling) Branch . furosemide 2021-04 Yes [id number] 20mg Take 1 [facility] 20 mg 0-03 tablet by [facility] of tablet 00:00: mouth as [place] 00 needed Medical (swelling) Branch . furosemide 2021-04 Yes [id number] 20mg Take 1 [facility] 20 mg 0-03 tablet by [facility] of tablet 00:00: mouth as [place] 00 needed Medical (swelling) Branch . furosemide 2021-04 Yes [id number] 20mg Take 1 [facility] 20 mg 0-03 tablet by [facility] of tablet 00:00: mouth as [place] 00 needed Medical (swelling) Branch . furosemide 2021-04 Yes [id number] 20mg Take 1 [facility] 20 mg 0-03 tablet by [facility] of tablet 00:00: mouth as [place] 00 needed Medical (swelling) Branch . furosemide 2021-04 Yes [id number] 20mg Take 1 [facility] 20 mg 0-03 tablet by [facility] of tablet 00:00: mouth as [place] 00 needed Medical (swelling) Branch . furosemide 2021-04 Yes [id number] 20mg Take 1 [facility] 20 mg 0-03 tablet by [facility] of tablet 00:00: mouth as [place] 00 needed Medical (swelling) Branch . furosemide 2021-04 Yes [id number] 20mg Take 1 [facility] 20 mg 0-03 tablet by [facility] of tablet 00:00: mouth as [place] 00 needed Medical (swelling) Branch . furosemide 2021-04 Yes [id number] 20mg Take 1 [facility] 20 mg 0-03 tablet by [facility] of tablet 00:00: mouth as [place] 00 needed Medical (swelling) Branch . furosemide 2021-04 Yes [id number] 20mg Take 1 [facility] 20 mg 0-03 tablet by [facility] of tablet 00:00: mouth as [place] 00 needed Medical (swelling) Branch . furosemide 2021-04 Yes [id number] 20mg Take 1 [facility] 20 mg 0-03 tablet by [facility] of tablet 00:00: mouth as [place] 00 needed Medical (swelling) Branch . furosemide 2021-04 Yes [id number] 20mg Take 1 [facility] 20 mg 0-03 tablet by [facility] of tablet 00:00: mouth as [place] 00 needed Medical (swelling) Branch . furosemide 2021-04 Yes [id number] 20mg Take 1 [facility] 20 mg 0-03 tablet by [facility] of tablet 00:00: mouth as [place] 00 needed Medical (swelling) Branch . furosemide 2021-04 Yes [id number] 20mg Take 1 [facility] 20 mg 0-03 tablet by [facility] of tablet 00:00: mouth as [place] 00 needed Medical (swelling) Branch . furosemide 2021-04 Yes [id number] 20mg Take 1 [facility] 20 mg 0-03 tablet by [facility] of tablet 00:00: mouth as [place] 00 needed Medical (swelling) Branch . furosemide 2021-04 Yes [id number] 20mg Take 1 [facility] 20 mg 0-03 tablet by [facility] of tablet 00:00: mouth as [place] 00 needed Medical (swelling) Branch . furosemide 2021-04 Yes [id number] 20mg Take 1 [facility] 20 mg 0-03 tablet by [facility] of tablet 00:00: mouth as [place] 00 needed Medical (swelling) Branch . furosemide 2021-04 Yes [id number] 20mg Take 1 [facility] 20 mg 0-03 tablet by [facility] of tablet 00:00: mouth as [place] 00 needed Medical (swelling) Branch . furosemide 2021-04 Yes [id number] 20mg Take 1 [facility] 20 mg 0-03 tablet by [facility] of tablet 00:00: mouth as [place] 00 needed Medical (swelling) Branch . furosemide 2021-04 Yes [id number] 20mg Take 1 [facility] 20 mg 0-03 tablet by [facility] of tablet 00:00: mouth as [place] 00 needed Medical (swelling) Branch . furosemide 2021-04 Yes [id number] 20mg Take 1 [facility] 20 mg 0-03 tablet by [facility] of tablet 00:00: mouth as [place] 00 needed Medical (swelling) Branch . furosemide 2021-04 No [id number] 20mg Take 1 [facility] 20 mg 0-03 12-29 tablet by [facility] of tablet 00:00: 00:00 mouth as [place] 00 :00 needed Medical (swelling) Branch . fluocinonid Yes [id number] Apply to [facility] e 0.05 % 9-22 area(s) 2 ity of cream 00:00: (two) [place] 00 times Medical daily. Branch fluocinonid 0 Yes [id number] Apply to [facility] e 0.05 % 9-22 area(s) 2 ity of cream 00:00: (two) [place] 00 times Medical daily. Branch fluocinonid 0 Yes [id number] Apply to [facility] e 0.05 % 9-22 area(s) 2 ity of cream 00:00: (two) [place] 00 times Medical daily. Branch fluocinonid 2022-0 Yes [id number] Apply to [facility] e 0.05 % 9-22 area(s) 2 ity of cream 00:00: (two) [place] 00 times Medical daily. Branch fluocinonid 2022-0 Yes [id number] Apply to [facility] e 0.05 % 9-22 area(s) 2 ity of cream 00:00: (two) [place] 00 times Medical daily. Branch fluocinonid 2022-0 Yes [id number] Apply to [facility] e 0.05 % 9-22 area(s) 2 ity of cream 00:00: (two) [place] 00 times Medical daily. Branch fluocinonid 2-0 Yes [id number] Apply to [facility] e 0.05 % 9-22 area(s) 2 ity of cream 00:00: (two) [place] 00 times Medical daily. Branch fluocinonid 2-0 Yes [id number] Apply to [facility] e 0.05 % 9-22 area(s) 2 ity of cream 00:00: (two) [place] 00 times Medical daily. Branch fluocinonid 2-0 Yes [id number] Apply to [facility] e 0.05 % 9-22 area(s) 2 ity of cream 00:00: (two) [place] 00 times Medical daily. Branch fluocinonid 2022-0 Yes [id number] Apply to [facility] e 0.05 % 9-22 area(s) 2 ity of cream 00:00: (two) [place] 00 times Medical daily. Branch fluocinonid 2022-0 Yes [id number] Apply to [facility] e 0.05 % 9-22 area(s) 2 ity of cream 00:00: (two) [place] 00 times Medical daily. Branch fluocinonid 2022-0 Yes [id number] Apply to [facility] e 0.05 % 9-22 area(s) 2 ity of cream 00:00: (two) [place] 00 times Medical daily. Branch fluocinonid 2022-0 Yes [id number] Apply to [facility] e 0.05 % 9-22 area(s) 2 ity of cream 00:00: (two) [place] 00 times Medical daily. Branch fluocinonid 2022-0 Yes [id number] Apply to [facility] e 0.05 % 9-22 area(s) 2 ity of cream 00:00: (two) [place] 00 times Medical daily. Branch fluocinonid 2022-0 Yes [id number] Apply to [facility] e 0.05 % 9-22 area(s) 2 ity of cream 00:00: (two) [place] 00 times Medical daily. Branch fluocinonid 2022-0 Yes [id number] Apply to [facility] e 0.05 % 9-22 area(s) 2 ity of cream 00:00: (two) [place] 00 times Medical daily. Branch fluocinonid 2022-0 Yes [id number] Apply to [facility] e 0.05 % 9-22 area(s) 2 ity of cream 00:00: (two) [place] 00 times Medical daily. Branch fluocinonid 2022-0 Yes [id number] Apply to [facility] e 0.05 % 9-22 area(s) 2 ity of cream 00:00: (two) [place] 00 times Medical daily. Branch fluocinonid 2022-0 Yes [id number] Apply to [facility] e 0.05 % 9-22 area(s) 2 ity of cream 00:00: (two) [place] 00 times Medical daily. Branch fluocinonid 2022-0 Yes [id number] Apply to [facility] e 0.05 % 9-22 area(s) 2 ity of cream 00:00: (two) [place] 00 times Medical daily. Branch fluocinonid 2022-0 Yes [id number] Apply to [facility] e 0.05 % 9-22 area(s) 2 ity of cream 00:00: (two) [place] 00 times Medical daily. Branch fluocinonid 2022-0 Yes [id number] Apply to [facility] e 0.05 % 9-22 area(s) 2 ity of cream 00:00: (two) [place] 00 times Medical daily. Branch fluocinonid 2022-0 Yes [id number] Apply to [facility] e 0.05 % 9-22 area(s) 2 ity of cream 00:00: (two) [place] 00 times Medical daily. Branch fluocinonid 2022-0 Yes [id number] Apply to [facility] e 0.05 % 9-22 area(s) 2 ity of cream 00:00: (two) [place] 00 times Medical daily. Branch fluocinonid 2022-0 Yes [id number] [facility] to [facility] 0[facility]05 % 9-22 area(s) 2 [facility] of cream 00:00: (two) [place] 00 times Medical daily. Branch fluocinonid 2022-0 Yes [id number] Apply to [facility] 0.05 % 9-22 area(s) 2 [facility] of cream 00:00: (two) [place] 00 times Medical daily. Branch fluocinonid 2022-0 Yes [id number] Apply to [facility] 0.05 % 9-22 area(s) 2 [facility] of cream 00:00: (two) [place] 00 times Medical daily. Branch fluocinonid 2022-0 Yes [id number] Apply to [facility] 0.05 % 9-22 area(s) 2 [facility] of cream 00:00: (two) [place] 00 times Medical daily. Branch fluocinonid 2022-0 Yes [id number] Apply to [facility] 0.05 % 9-22 area(s) 2 [facility] of cream 00:00: (two) [place] 00 times Medical daily. Branch fluocinonid 2022-0 Yes [id number] Apply to [facility] 0.05 % 9-22 area(s) 2 [facility] of cream 00:00: (two) [place] 00 times Medical daily. Branch fluocinonid 2022-0 Yes [id number] Apply to [facility] 0.05 % 9-22 area(s) 2 [facility]y of cream 00:00: (two) [place] 00 times Medical daily. Branch fluocinonid 2022-0 Yes [id number] Apply to [facility] 0.05 % 9-22 area(s) 2 [facility]y of cream 00:00: (two) [place] 00 times Medical daily. Branch fluocinonid 2022-0 Yes [id number] Apply to [facility] 0.05 % 9-22 area(s) 2 ity of cream 00:00: (two) [place] 00 times Medical daily. Branch fluocinonid 2022-0 Yes [id number] Apply to [facility] 0.05 % 9-22 area(s) 2 [facility]y of cream 00:00: (two) [place] 00 times Medical daily. Branch fluocinonid 2-0 Yes [id number] Apply to [facility] 0.05 % 9-22 area(s) 2 ity of cream 00:00: (two) [place] 00 times Medical daily. Branch fluocinonid 2021-0 Yes [id number] Apply to [facility] 0.05 % 9-22 area(s) 2 [facility] of cream 00:00: (two) [place] 00 times Medical daily. Branch fluocinonid 2021-0 Yes [id number] Apply to [facility] 0.05 % 9-22 area(s) 2 ity of cream 00:00: (two) [place] 00 times Medical daily. Branch fluocinonid 2021-0 Yes [id number] Apply to [facility] 0.05 % 9-22 area(s) 2 ity of cream 00:00: (two) [place] 00 times Medical daily. Branch fluocinonid 2021-0 Yes [id number] Apply to [facility] 0.05 % 9-22 area(s) 2 ity of cream 00:00: (two) [place] 00 times Medical daily. Branch fluocinonid 2021-0 3- No [id number] Apply to [facility] 0.05 % 9-22 01-10 area(s) 2 ity o f cream 00:00: 00:00 (two) [place] 00 :00 times Medical daily. Branch fluocinonid 2021-0 2023- No [id number] Apply to [facility] 0.05 % 9-22 01-10 area(s) 2 ity o f cream 00:00: 00:00 (two) [place] 00 :00 times Medical daily. Branch labetaloL 2021-0 Yes [id number] 400mg Take 2 [facility] 200 mg 8-01 tablets by [facility] of tablet 00:00: mouth [place] 00 every 12 Medical (twelve) Branch hours. labetaloL 2021-0 Yes [id number] 400mg Take 2 [facility] 200 mg 8-01 tablets by [facility] of tablet 00:00: mouth [place] 00 every 12 Medical (twelve) Branch hours. labetaloL 2021-0 Yes [id number] 400mg Take 2 [facility] 200 mg 8-01 tablets by [facility] of tablet 00:00: mouth [place] 00 every 12 Medical (twelve) Branch hours. labetaloL 2021-0 Yes [id number] 400mg Take 2 [facility] 200 mg 8-01 tablets by [facility] of tablet 00:00: mouth [place] 00 every 12 Medical (twelve) Branch hours. labetaloL 2022-0 Yes [id number] 400mg Take 2 [facility] 200 mg 8-01 tablets by [facility] of tablet 00:00: mouth [place] 00 every 12 Medical (twelve) Branch hours. labetaloL 2-0 Yes [id number] 400mg Take 2 [facility] 200 mg 8-01 tablets by [facility] of tablet 00:00: mouth [place] 00 every 12 Medical (twelve) Branch hours. labetaloL 2-0 Yes [id number] 400mg Take 2 [facility] 200 mg 8-01 tablets by [facility] of tablet 00:00: mouth [place] 00 every 12 Medical (twelve) Branch hours. labetaloL 2-0 Yes [id number] 400mg Take 2 [facility] 200 mg 8-01 tablets by [facility] of tablet 00:00: mouth [place] 00 every 12 Medical (twelve) Branch hours. labetaloL 2-0 Yes [id number] 400mg Take 2 [facility] 200 mg 8-01 tablets by [facility] of tablet 00:00: mouth [place] 00 every 12 Medical (twelve) Branch hours. labetaloL 2-0 Yes [id number] 400mg Take 2 [facility] 200 mg 8-01 tablets by [facility] of tablet 00:00: mouth [place] 00 every 12 Medical (twelve) Branch hours. labetaloL 2-0 Yes [id number] 400mg Take 2 [facility] 200 mg 8-01 tablets by [facility] of tablet 00:00: mouth [place] 00 every 12 Medical (twelve) Branch hours. labetaloL 2-0 Yes [id number] 400mg Take 2 [facility] 200 mg 8-01 tablets by [facility] of tablet 00:00: mouth [place] 00 every 12 Medical (twelve) Branch hours. labetaloL 2022-0 Yes [id number] 400mg Take 2 [facility] 200 mg 8-01 tablets by [facility] of tablet 00:00: mouth [place] 00 every 12 Medical (twelve) Branch hours. labetaloL 2022-0 Yes [id number] 400mg Take 2 [facility] 200 mg 8-01 tablets by [facility] of tablet 00:00: mouth [place] 00 every 12 Medical (twelve) Branch hours. labetaloL 2022-0 Yes [id number] 400mg Take 2 [facility] 200 mg 8-01 tablets by [facility] of tablet 00:00: mouth [place] 00 every 12 Medical (twelve) Branch hours. labetaloL 2022-0 Yes [id number] 400mg Take 2 [facility] 200 mg 8-01 tablets by [facility] of tablet 00:00: mouth [place] 00 every 12 Medical (twelve) Branch hours. labetaloL 2022-0 Yes [id number] 400mg Take 2 [facility] 200 mg 8-01 tablets by [facility] of tablet 00:00: mouth [place] 00 every 12 Medical (twelve) Branch hours. labetaloL 2022-0 Yes [id number] 400mg Take 2 [facility] 200 mg 8-01 tablets by [facility] of tablet 00:00: mouth [place] 00 every 12 Medical (twelve) Branch hours. labetaloL 2-0 Yes [id number] 400mg Take 2 [facility] 200 mg 8-01 tablets by [facility] of tablet 00:00: mouth [place] 00 every 12 Medical (twelve) Branch hours. labetaloL 2021-0 Yes [id number] 400mg Take 2 [facility] 200 mg 8-01 tablets by [facility] of tablet 00:00: mouth [place] 00 every 12 Medical (twelve) Branch hours. labetaloL 2-0 Yes [id number] 400mg Take 2 [facility] 200 mg 8-01 tablets by [facility] of tablet 00:00: mouth [place] 00 every 12 Medical (twelve) Branch hours. labetaloL 2-0 Yes [id number] 400mg Take 2 [facility] 200 mg 8-01 tablets by [facility] of tablet 00:00: mouth [place] 00 every 12 Medical (twelve) Branch hours. labetaloL 2-0 Yes [id number] 400mg Take 2 [facility] 200 mg 8-01 tablets by [facility] of tablet 00:00: mouth [place] 00 every 12 Medical (twelve) Branch hours. labetaloL 2022-0 Yes [id number] 400mg Take 2 [facility] 200 mg 8-01 tablets by [facility] of tablet 00:00: mouth [place] 00 every 12 Medical (twelve) Branch hours. labetaloL 2022-0 Yes [id number] 400mg Take 2 [facility] 200 mg 8-01 tablets by [facility] of tablet 00:00: mouth [place] 00 every 12 Medical (twelve) Branch hours. labetaloL 2022-0 Yes [id number] 400mg Take 2 [facility] 200 mg 8-01 tablets by [facility] of tablet 00:00: mouth [place] 00 every 12 Medical (twelve) Branch hours. labetaloL 2-0 Yes [id number] 400mg Take 2 [facility] 200 mg 8-01 tablets by [facility] of tablet 00:00: mouth [place] 00 every 12 Medical (twelve) Branch hours. labetaloL 2-0 Yes [id number] 400mg Take 2 [facility] 200 mg 8-01 tablets by [facility] of tablet 00:00: mouth [place] 00 every 12 Medical (twelve) Branch hours. labetaloL 2-0 Yes [id number] 400mg Take 2 [facility] 200 mg 8-01 tablets by [facility] of tablet 00:00: mouth [place] 00 every 12 Medical (twelve) Branch hours. labetaloL 2-0 Yes [id number] 400mg Take 2 [facility] 200 mg 8-01 tablets by [facility] of tablet 00:00: mouth [place] 00 every 12 Medical (twelve) Branch hours. labetaloL 2-0 Yes [id number] 400mg Take 2 [facility] 200 mg 8-01 tablets by [facility] of tablet 00:00: mouth [place] 00 every 12 Medical (twelve) Branch hours. labetaloL 2-0 Yes [id number] 400mg Take 2 [facility] 200 mg 8-01 tablets by [facility] of tablet 00:00: mouth [place] 00 every 12 Medical (twelve) Branch hours. labetaloL 2-0 Yes [id number] 400mg Take 2 [facility] 200 mg 8-01 tablets by [facility] of tablet 00:00: mouth [place] 00 every 12 Medical (twelve) Branch hours. labetaloL 2-0 Yes [id number] 400mg Take 2 [facility] 200 mg 8-01 tablets by [facility] of tablet 00:00: mouth [place] 00 every 12 Medical (twelve) Branch hours. labetaloL 2-0 Yes [id number] 400mg Take 2 [facility] 200 mg 8-01 tablets by [facility] of tablet 00:00: mouth [place] 00 every 12 Medical (twelve) Branch hours. labetaloL 2022-0 Yes [id number] 400mg Take 2 [facility] 200 mg 8-01 tablets by [facility] of tablet 00:00: mouth [place] 00 every 12 Medical (twelve) Branch hours. labetaloL 2022-0 Yes [id number] 400mg Take 2 [facility] 200 mg 8-01 tablets by [facility] of tablet 00:00: mouth [place] 00 every 12 Medical (twelve) Branch hours. labetaloL 2022-0 Yes [id number] 400mg Take 2 [facility] 200 mg 8-01 tablets by [facility] of tablet 00:00: mouth [place] 00 every 12 Medical (twelve) Branch hours. labetaloL 2-0 Yes [id number] 400mg Take 2 [facility] 200 mg 8-01 tablets by [facility] of tablet 00:00: mouth [place] 00 every 12 Medical (twelve) Branch hours. labetaloL 2022-0 Yes [id number] 400mg Take 2 [facility] 200 mg 8-01 tablets by [facility] of tablet 00:00: mouth [place] 00 every 12 Medical (twelve) Branch hours. labetaloL 2-0 Yes [id number] 400mg Take 2 [facility] 200 mg 8-01 tablets by [facility] of tablet 00:00: mouth [place] 00 every 12 Medical (twelve) Branch hours. labetaloL 2-0 Yes [id number] 400mg Take 2 [facility] 200 mg 8-01 tablets by [facility] of tablet 00:00: mouth [place] 00 every 12 Medical (twelve) Branch hours. labetaloL 2-0 Yes [id number] 400mg Take 2 [facility] 200 mg 8-01 tablets by [facility] of tablet 00:00: mouth [place] 00 every 12 Medical (twelve) Branch hours. labetaloL 2-0 Yes [id number] 400mg Take 2 [facility] 200 mg 8-01 tablets by [facility] of tablet 00:00: mouth [place] 00 every 12 Medical (twelve) Branch hours. labetaloL 2-0 Yes [id number] 400mg Take 2 [facility] 200 mg 8-01 tablets by [facility] of tablet 00:00: mouth [place] 00 every 12 Medical (twelve) Branch hours. labetaloL 2-0 Yes [id number] 400mg Take 2 [facility] 200 mg 8-01 tablets by [facility] of tablet 00:00: mouth [place] 00 every 12 Medical (twelve) Branch hours. labetaloL 2022-0 Yes [id number] 400mg Take 2 [facility] 200 mg 8-01 tablets by [facility] of tablet 00:00: mouth [place] 00 every 12 Medical (twelve) Branch hours. labetaloL 2022-0 Yes [id number] 400mg Take 2 [facility] 200 mg 8-01 tablets by [facility] of tablet 00:00: mouth [place] 00 every 12 Medical (twelve) Branch hours. labetaloL 2022-0 Yes [id number] 400mg Take 2 [facility] 200 mg 8-01 tablets by [facility] of tablet 00:00: mouth [place] 00 every 12 Medical (twelve) Branch hours. labetaloL 2022-0 Yes [id number] 400mg Take 2 [facility] 200 mg 8-01 tablets by [facility]y of tablet 00:00: mouth [place] 00 every 12 Medical (twelve) Branch hours. labetaloL 2022-0 Yes [id number] 400mg Take 2 [facility] 200 mg 8-01 tablets by [facility] of tablet 00:00: mouth [place] 00 every 12 Medical (twelve) Branch hours. labetaloL 2022-0 Yes [id number] 400mg Take 2 [facility] 200 mg 8-01 tablets by [facility] of tablet 00:00: mouth [place] 00 every 12 Medical (twelve) Branch hours. labetaloL 2-0 Yes [id number] 400mg Take 2 [facility] 200 mg 8-01 tablets by [facility]y of tablet 00:00: mouth [place] 00 every 12 Medical (twelve) Branch hours. labetaloL 2-0 Yes [id number] 400mg Take 2 [facility] 200 mg 8-01 tablets by [facility] of tablet 00:00: mouth [place] 00 every 12 Medical (twelve) Branch hours. labetaloL 2022-0 Yes [id number] 400mg Take 2 [facility] 200 mg 8-01 tablets by [facility] of tablet 00:00: mouth [place] 00 every 12 Medical (twelve) Branch hours. labetaloL 2022-0 Yes [id number] 400mg Take 2 [facility] 200 mg 8-01 tablets by [facility]y of tablet 00:00: mouth [place] 00 every 12 Medical (twelve) Branch hours. labetaloL 2022-0 Yes [id number] 400mg Take 2 [facility] 200 mg 8-01 tablets by [facility] of tablet 00:00: mouth [place] 00 every 12 Medical (twelve) Branch hours. labetaloL 2022-0 Yes [id number] 400mg Take 2 [facility] 200 mg 8-01 tablets by ity of tablet 00:00: mouth [place] 00 every 12 Medical (twelve) Branch hours. sofosbuvir- 2-0 Yes [id number] 1{tbl} Take 1 [facility] velpatasvir 6-07 tablet by ity of ([facility]) 00:00: mouth [place] 400-100 mg 00 daily. Medical Branch pravastatin 2021-0 Yes [id number] 40mg Take 1 [facility] 40 mg 6-07 tablet by ity of tablet 00:00: mouth at [place] 00 bedtime. Medical Branch allopurinoL 2021-0 Yes [id number] 100mg Take 1 [facility] 100 mg 6-07 [id number] tablet by ity of tablet 00:00: mouth [place] 00 daily. Medical Branch sofosbuvir- 2021-0 Yes [id number] 1{tbl} Take 1 [facility] velpatasvir 6-07 tablet by ity of ([facility]) 00:00: mouth [place] 400-100 mg 00 daily. Medical Branch pravastatin 2021-0 Yes [id number] 40mg Take 1 [facility] 40 mg 6-07 tablet by ity of tablet 00:00: mouth at [place] 00 bedtime. Medical Branch allopurinoL 2021-0 Yes [id number] 100mg Take 1 [facility] 100 mg 6-07 [id number] tablet by ity of tablet 00:00: mouth [place] 00 daily. Medical Branch sofosbuvir- 2021-0 Yes [id number] 1{tbl} Take 1 [facility] velpatasvir 6-07 tablet by ity of ([facility]) 00:00: mouth [place] 400-100 mg 00 daily. Medical Branch pravastatin 2021-0 Yes [id number] 40mg Take 1 [facility] 40 mg 6-07 tablet by ity of tablet 00:00: mouth at [place] 00 bedtime. Medical Branch allopurinoL 2021-0 Yes [id number] 100mg Take 1 [facility] 100 mg 6-07 [id number] tablet by ity of tablet 00:00: mouth [place] 00 daily. Medical Branch sofosbuvir- 2021-0 Yes [id number] 1{tbl} Take 1 [facility] velpatasvir 6-07 tablet by ity of ([facility]) 00:00: mouth [place] 400-100 mg 00 daily. Medical Branch pravastatin 2021-0 Yes [id number] 40mg Take 1 [facility] 40 mg 6-07 tablet by ity of tablet 00:00: mouth at [place] 00 bedtime. Medical Branch allopurinoL 2021-0 Yes [id number] 100mg Take 1 [facility] 100 mg 6-07 [id number] tablet by ity of tablet 00:00: mouth [place] 00 daily. Medical Branch sofosbuvir- 2021-0 Yes [id number] 1{tbl} Take 1 [facility] velpatasvir 6-07 tablet by ity of ([facility]) 00:00: mouth [place] 400-100 mg 00 daily. Medical Branch pravastatin 2021-0 Yes [id number] 40mg Take 1 [facility] 40 mg 6-07 tablet by ity of tablet 00:00: mouth at [place] 00 bedtime. Medical Branch allopurinoL 2021-0 Yes [id number] 100mg Take 1 [facility] 100 mg 6-07 [id number] tablet by ity of tablet 00:00: mouth [place] 00 daily. Medical Branch sofosbuvir- 2021-0 Yes [id number] 1{tbl} Take 1 [facility] velpatasvir 6-07 tablet by ity of ([facility]) 00:00: mouth [place] 400-100 mg 00 daily. Medical Branch pravastatin 2021-0 Yes [id number] 40mg Take 1 [facility] 40 mg 6-07 tablet by ity of tablet 00:00: mouth at [place] 00 bedtime. Medical Branch allopurinoL 2021-0 Yes [id number] 100mg Take 1 [facility] 100 mg 6-07 [id number] tablet by ity of tablet 00:00: mouth [place] 00 daily. Medical Branch sofosbuvir- 2021-0 Yes [id number] 1{tbl} Take 1 [facility] velpatasvir 6-07 tablet by ity of ([facility]) 00:00: mouth [place] 400-100 mg 00 daily. Medical Branch pravastatin 2021-0 Yes [id number] 40mg Take 1 [facility] 40 mg 6-07 tablet by ity of tablet 00:00: mouth at [place] 00 bedtime. Medical [facility] allopurinoL 2021-0 Yes [id number] 100mg Take 1 [facility] 100 mg 6-07 [id number] tablet by ity of tablet 00:00: mouth [place] 00 daily. Medical Branch sofosbuvir- 2021-0 Yes [id number] 1{tbl} Take 1 [facility] velpatasvir 6-07 tablet by ity of ([facility]) 00:00: mouth [place] 400-100 mg 00 daily. Medical Branch pravastatin 2021-0 Yes [id number] 40mg Take 1 [facility] 40 mg 6-07 tablet by ity of tablet 00:00: mouth at [place] 00 bedtime. Medical [facility] allopurinoL 2021-0 Yes [id number] 100mg Take 1 [facility] 100 mg 6-07 [id number] tablet by ity of tablet 00:00: mouth [place] 00 daily. Medical Branch sofosbuvir- 2021-0 Yes [id number] 1{tbl} Take 1 [facility] velpatasvir 6-07 tablet by ity of ([facility]) 00:00: mouth [place] 400-100 mg 00 daily. Medical Branch pravastatin 2021-0 Yes [id number] 40mg Take 1 [facility] 40 mg 6-07 tablet by ity of tablet 00:00: mouth at [place] 00 bedtime. Medical [facility] allopurinoL 2021-0 Yes [id number] 100mg Take 1 [facility] 100 mg 6-07 [id number] tablet by ity of tablet 00:00: mouth [place] 00 daily. Medical Branch sofosbuvir- 2021-0 Yes [id number] 1{tbl} Take 1 [facility] velpatasvir 6-07 tablet by ity of ([facility]) 00:00: mouth [place] 400-100 mg 00 daily. Medical Branch pravastatin 2021-0 Yes [id number] 40mg Take 1 [facility] 40 mg 6-07 tablet by ity of tablet 00:00: mouth at [place] 00 bedtime. Medical [facility] allopurinoL 2021-0 Yes [id number] 100mg Take 1 [facility] 100 mg 6-07 [id number] tablet by ity of tablet 00:00: mouth [place] 00 daily. Medical Branch sofosbuvir- 2021-0 Yes [id number] 1{tbl} Take 1 [facility] velpatasvir 6-07 tablet by ity of ([facility]) 00:00: mouth [place] 400-100 mg 00 daily. Medical Branch pravastatin 2021-0 Yes [id number] 40mg Take 1 [facility] 40 mg 6-07 tablet by ity of tablet 00:00: mouth at [place] 00 bedtime. Medical Branch allopurinoL 2021-0 Yes [id number] 100mg Take 1 [facility] 100 mg 6-07 [id number] tablet by ity of tablet 00:00: mouth [place] 00 daily. Medical Branch sofosbuvir- 2021-0 Yes [id number] 1{tbl} Take 1 [facility] velpatasvir 6-07 tablet by ity of ([facility]) 00:00: mouth [place] 400-100 mg 00 daily. Medical Branch pravastatin 2021-0 Yes [id number] 40mg Take 1 [facility] 40 mg 6-07 tablet by ity of tablet 00:00: mouth at [place] 00 bedtime. [facility] sofosbuvir- 2021-0 Yes [id number] 1{tbl} Take 1 [facility] velpatasvir 6-07 tablet by ity of ([facility]) 00:00: mouth [place] 400-100 mg 00 daily. Medical Branch pravastatin 2021-0 Yes [id number] 40mg Take 1 [facility] 40 mg 6-07 tablet by ity of tablet 00:00: mouth at [place] 00 bedtime. [facility] sofosbuvir- 2021-0 Yes [id number] 1{tbl} Take 1 [facility] velpatasvir 6-07 tablet by ity of ([facility]) 00:00: mouth [place] 400-100 mg 00 daily. Medical Branch pravastatin 2021-0 Yes [id number] 40mg Take 1 [facility] 40 mg 6-07 tablet by ity of tablet 00:00: mouth at [place] 00 bedtime. [facility] Branch sofosbuvir- 2021-0 Yes [id number] 1{tbl} Take 1 [facility] velpatasvir 6-07 tablet by ity of ([facility]) 00:00: mouth [place] 400-100 mg 00 daily. [facility] Branch pravastatin 2021-0 Yes [id number] 40mg Take 1 [facility] 40 mg 6-07 tablet by ity of tablet 00:00: mouth at [place] 00 bedtime. [facility] sofosbuvir- 2021-0 Yes [id number] 1{tbl} Take 1 [facility] velpatasvir 6-07 tablet by ity of ([facility]) 00:00: mouth [place] 400-100 mg 00 daily. [facility] Branch pravastatin 2021-0 Yes [id number] 40mg Take 1 [facility] 40 mg 6-07 tablet by ity of tablet 00:00: mouth at [place] 00 bedtime. [facility] sofosbuvir- 2021-0 Yes [id number] 1{tbl} Take 1 [facility] velpatasvir 6-07 tablet by ity of ([facility]) 00:00: mouth [place] 400-100 mg 00 daily. [facility] Branch pravastatin 2021-0 Yes [id number] 40mg Take 1 [facility] 40 mg 6-07 tablet by ity of tablet 00:00: mouth at [place] 00 bedtime. [facility] sofosbuvir- 2021-0 Yes [id number] 1{tbl} Take 1 [facility] velpatasvir 6-07 tablet by ity of ([facility]) 00:00: mouth [place] 400-100 mg 00 daily. [facility] Branch pravastatin 2-0 Yes [id number] 40mg Take 1 [facility] 40 mg 6-07 tablet by ity of tablet 00:00: mouth at [place] 00 bedtime. [facility] sofosbuvir- 2021-0 Yes [id number] 1{tbl} Take 1 [facility] velpatasvir 6-07 tablet by ity of ([facility]) 00:00: mouth [place] 400-100 mg 00 daily. [facility] Branch pravastatin 2021-0 Yes [id number] 40mg Take 1 [facility] 40 mg 6-07 tablet by ity of tablet 00:00: mouth at [place] 00 bedtime. [facility] sofosbuvir- 2021-0 Yes [id number] 1{tbl} Take 1 [facility] velpatasvir 6-07 tablet by ity of ([facility]) 00:00: mouth [place] 400-100 mg 00 daily. [facility] Branch pravastatin 2021-0 Yes [id number] 40mg Take 1 [facility] 40 mg 6-07 tablet by ity of tablet 00:00: mouth at [place] 00 bedtime. [facility] sofosbuvir- 2021-0 Yes [id number] 1{tbl} Take 1 [facility] velpatasvir 6-07 tablet by ity of ([facility]) 00:00: mouth [place] 400-100 mg 00 daily. [facility] Branch pravastatin 2-0 Yes [id number] 40mg Take 1 [facility] 40 mg 6-07 tablet by ity of tablet 00:00: mouth at [place] 00 bedtime. [facility] sofosbuvir- 2021-0 Yes [id number] 1{tbl} Take 1 [facility] velpatasvir 6-07 tablet by ity of ([facility]) 00:00: mouth [place] 400-100 mg 00 daily. [facility] Branch sofosbuvir- 2021-0 Yes [id number] 1{tbl} Take 1 [facility] velpatasvir 6-07 tablet by ity of ([facility]) 00:00: mouth [place] 400-100 mg 00 daily. [facility] Branch sofosbuvir- 2021-0 Yes [id number] 1{tbl} Take 1 [facility] velpatasvir 6-07 tablet by ity of ([facility]) 00:00: mouth [place] 400-100 mg 00 daily. [facility] Branch sofosbuvir- 2021-0 Yes [id number] 1{tbl} Take 1 [facility] velpatasvir 6-07 tablet by ity of ([facility]) 00:00: mouth [place] 400-100 mg 00 daily. [facility] Branch sofosbuvir- 2021-0 Yes [id number] 1{tbl} Take 1 [facility] velpatasvir 6-07 tablet by ity of ([facility]) 00:00: mouth [place] 400-100 mg 00 daily. [facility] Branch sofosbuvir- 2021-0 Yes [id number] 1{tbl} Take 1 [facility] velpatasvir 6-07 tablet by ity of ([facility]) 00:00: mouth [place] 400-100 mg 00 daily. [facility] Branch sofosbuvir- 2021-0 Yes [id number] 1{tbl} Take 1 [facility] velpatasvir 6-07 tablet by ity of ([facility]) 00:00: mouth [place] 400-100 mg 00 daily. [facility] sofosbuvir- 2021-0 Yes [id number] 1{tbl} Take 1 [facility] velpatasvir 6-07 tablet by ity of ([facility]) 00:00: mouth [place] 400-100 mg 00 daily. [facility] sofosbuvir- 2021-0 Yes [id number] 1{tbl} Take 1 [facility] velpatasvir 6-07 tablet by ity of ([facility]) 00:00: mouth [place] 400-100 mg 00 daily. [facility] sofosbuvir- 2021-0 Yes [id number] 1{tbl} Take 1 [facility] velpatasvir 6-07 tablet by ity of ([facility]) 00:00: mouth [place] 400-100 mg 00 daily. [facility] sofosbuvir- 2021-0 Yes [id number] 1{tbl} Take 1 [facility] velpatasvir 6-07 tablet by ity of ([facility]) 00:00: mouth [place] 400-100 mg 00 daily. [facility] sofosbuvir- 2021-0 Yes [id number] 1{tbl} Take 1 [facility] velpatasvir 6-07 tablet by ity of ([facility]) 00:00: mouth [place] 400-100 mg 00 daily. [facility] sofosbuvir- 2021-0 Yes [id number] 1{tbl} Take 1 [facility] velpatasvir 6-07 tablet by ity of ([facility]) 00:00: mouth [place] 400-100 mg 00 daily. [facility] sofosbuvir- 2021-0 Yes [id number] 1{tbl} Take 1 [facility] velpatasvir 6-07 tablet by ity of ([facility]) 00:00: mouth [place] 400-100 mg 00 daily. [facility] sofosbuvir- 2021-0 Yes [id number] 1{tbl} Take 1 [facility] velpatasvir 6-07 tablet by ity of ([facility]) 00:00: mouth [place] 400-100 mg 00 daily. [facility] sofosbuvir- 2021-0 Yes [id number] 1{tbl} Take 1 [facility] velpatasvir 6-07 tablet by ity of ([facility]) 00:00: mouth [place] 400-100 mg 00 daily. [facility] sofosbuvir- 2021-0 Yes [id number] 1{tbl} Take 1 [facility] velpatasvir 6-07 tablet by ity of ([facility]) 00:00: mouth [place] 400-100 mg 00 daily. [facility] sofosbuvir- 2021-0 Yes [id number] 1{tbl} Take 1 [facility] velpatasvir 6-07 tablet by ity of ([facility]) 00:00: mouth [place] 400-100 mg 00 daily. [facility] sofosbuvir- 2021-0 Yes [id number] 1{tbl} Take 1 [facility] velpatasvir 6-07 tablet by ity of ([facility]) 00:00: mouth [place] 400-100 mg 00 daily. [facility] sofosbuvir- 2021-0 Yes [id number] 1{tbl} Take 1 [facility] velpatasvir 6-07 tablet by ity of ([facility]) 00:00: mouth [place] 400-100 mg 00 daily. [facility] sofosbuvir- 2021-0 Yes [id number] 1{tbl} Take 1 [facility] velpatasvir 6-07 tablet by ity of ([facility]) 00:00: mouth [place] 400-100 mg 00 daily. [facility] sofosbuvir- 2021-0 Yes [id number] 1{tbl} Take 1 [facility] velpatasvir 6-07 tablet by ity of ([facility]) 00:00: mouth [place] 400-100 mg 00 daily. [facility] sofosbuvir- 2021-0 Yes [id number] 1{tbl} Take 1 [facility] velpatasvir 6-07 tablet by ity of ([facility]) 00:00: mouth [place] 400-100 mg 00 daily. [facility] sofosbuvir- 2021-0 Yes [id number] 1{tbl} Take 1 [facility] velpatasvir 6-07 tablet by ity of ([facility]) 00:00: mouth [place] 400-100 mg 00 daily. [facility] sofosbuvir- 2021-0 Yes [id number] 1{tbl} Take 1 [facility] velpatasvir 6-07 tablet by ity of ([facility]) 00:00: mouth [place] 400-100 mg 00 daily. [facility] sofosbuvir- 2021-0 Yes [id number] 1{tbl} Take 1 [facility] velpatasvir 6-07 tablet by ity of ([facility]) 00:00: mouth [place] 400-100 mg 00 daily. [facility] sofosbuvir- 2021-0 Yes [id number] 1{tbl} Take 1 [facility] velpatasvir 6-07 tablet by ity of ([facility]) 00:00: mouth [place] 400-100 mg 00 daily. [facility] sofosbuvir- 2021-0 Yes [id number] 1{tbl} Take 1 [facility] velpatasvir 6-07 tablet by ity of ([facility]) 00:00: mouth [place] 400-100 mg 00 daily. [facility] sofosbuvir- 2-0 Yes [id number] 1{tbl} Take 1 [facility] velpatasvir 6-07 tablet by ity of ([facility]) 00:00: mouth [place] 400-100 mg 00 daily. [facility] sofosbuvir- 2-0 Yes [id number] 1{tbl} Take 1 [facility] velpatasvir 6-07 tablet by ity of ([facility]) 00:00: mouth [place] 400-100 mg 00 daily. [facility] sofosbuvir- 2021-0 Yes [id number] 1{tbl} Take 1 [facility] velpatasvir 6-07 tablet by ity of ([facility]) 00:00: mouth [place] 400-100 mg 00 daily. [facility] sofosbuvir- 2021-0 Yes [id number] 1{tbl} Take 1 [facility] velpatasvir 6-07 tablet by ity of ([facility]) 00:00: mouth [place] 400-100 mg 00 daily. [facility] sofosbuvir- 2021-0 Yes [id number] 1{tbl} Take 1 [facility] velpatasvir 6-07 tablet by it[facility] of ([facility]) 00:00: mouth [place] 400-100 mg 00 daily. [facility] sofosbuvir- 2021-0 Yes [id number] 1{tbl} Take 1 [facility] velpatasvir 6-07 tablet by ity of ([facility]) 00:00: mouth [place] 400-100 mg 00 daily. [facility] sofosbuvir- 2021-0 Yes [id number] 1{tbl} Take 1 [facility] velpatasvir 6-07 tablet by ity of ([facility]) 00:00: mouth [place] 400-100 mg 00 daily. [facility] sofosbuvir- 2021-0 Yes [id number] 1{tbl} Take 1 [facility] velpatasvir 6-07 tablet by ity of ([facility]) 00:00: mouth [place] 400-100 mg 00 daily. [facility] sofosbuvir- 2021-0 Yes [id number] 1{tbl} Take 1 [facility] velpatasvir 6-07 tablet by [facility] of ([facility]) 00:00: mouth [place] 400-100 mg 00 daily. [facility] pravastatin 2021-0 Yes [id number] 40mg Take 1 [facility] 40 mg 6-07 tablet by ity of tablet 00:00: mouth at [place] 00 bedtime. [facility] allopurinoL 2021-0 Yes [id number] 100mg Take 1 [facility] 100 mg 6-07 [id number] tablet by ity of tablet 00:00: mouth [place] 00 daily. [facility] pravastatin 2021-0 2021- No [id number] 40mg Take 1 [facility] 40 mg 6-07 12-01 tablet by ity of tablet 00:00: 00:00 mouth at [place] 00 :00 bedtime. [facility] pravastatin 2021-2- No [id number] 40mg Take 1 [facility] 40 mg 10-02 tablet by ity of tablet 00:00: 00:00 mouth at [place] 00 :00 bedtime. [facility] pravastatin 2021-0 2- No [id number] 40mg Take 1 [facility] 40 mg 10-02 tablet by ity of tablet 00:00: 00:00 mouth at [place] 00 :00 bedtime. [facility] allopurinoL 2021-0 2- No [id number] 100mg Take 1 [facility] 100 mg 10-02 [id number] tablet by ity of tablet 00:00: 00:00 mouth [place] 00 :00 daily. [facility] allopurinoL 2021-0 2021- No [id number] 100mg Take 1 [facility] 100 mg 10-02 [id number] tablet by ity of tablet 00:00: 00:00 mouth [place] 00 :00 daily. [facility] tamsulosin 2021-0 Yes [id number] .8mg Take 2 [facility] (FLOMAX) 5-24 capsules ity of 0.4 mg 24 00:00: [place] capsule 00 at Medical bedtime. Branch mirtazapine 2021-0 Yes [id number] 7.5mg Take 1 [facility] 7.5 mg 5-24 tablet by ity of tablet 00:00: mouth at [place] 00 bedtime. [facility] fluticasone 2021-0 Yes [id number] INHALE 1 [facility] propionate 5-24 PUFF EVERY ity of ([facility] 00:00: 12 [place] [facility]) 220 00 (TWELVE) Medical mcg/actuati HOURS. Branch on inhaler Rinse mouth after each use. triamcinolo 2021-0 Yes [id number] Apply to [facility] ne 0.5 % 5-24 area(s) 3 ity of cream 00:00: (three) [place] 00 times Medical daily. Branch tamsulosin 2021-0 Yes [id number] .8mg Take 2 [facility] (FLOMAX) 5-24 capsules ity of 0.4 mg 24 00:00: by [place] capsule 00 at Medical bedtime. Branch mirtazapine 2021-0 Yes [id number] 7.5mg Take 1 [facility] 7.5 mg 5-24 tablet by ity of tablet 00:00: mouth at [place] 00 bedtime. [facility] fluticasone 2021-0 Yes [id number] INHALE 1 [facility] propionate 5-24 PUFF EVERY ity of ([facility] 00:00: 12 [place] [facility]) 220 00 (TWELVE) Medical mcg/actuati HOURS. Branch on inhaler Rinse mouth after each use. triamcinolo 2021-0 Yes [id number] Apply to [facility] ne 0.5 % 5-24 area(s) 3 ity of cream 00:00: (three) [place] 00 times Medical daily. Branch tamsulosin 2021-0 Yes [id number] .8mg Take 2 [facility] (FLOMAX) 5-24 capsules ity of 0.4 mg 24 00:00: by [place] capsule 00 at Medical bedtime. Branch mirtazapine 2021-0 Yes [id number] 7.5mg Take 1 [facility] 7.5 mg 5-24 tablet by ity of tablet 00:00: mouth at [place] 00 bedtime. [facility] fluticasone 2021-0 Yes [id number] INHALE 1 [facility] propionate 5-24 PUFF EVERY ity of ([facility] 00:00: 12 [place] [facility]) 220 00 (TWELVE) Medical mcg/actuati HOURS. Branch on inhaler Rinse mouth after each use. triamcinolo 2021-0 Yes [id number] Apply to [facility] ne 0.5 % 5-24 area(s) 3 ity of cream 00:00: (three) [place] 00 times Medical daily. Branch tamsulosin 2021-0 Yes [id number] .8mg Take 2 [facility] (FLOMAX) 5-24 capsules ity of 0.4 mg 24 00:00: by [place] capsule 00 at Medical bedtime. Branch mirtazapine 2-0 Yes [id number] 7.5mg Take 1 [facility] 7.5 mg 5-24 tablet by ity of tablet 00:00: mouth at [place] 00 bedtime. [facility] fluticasone 2021-0 Yes [id number] INHALE 1 [facility] propionate 5-24 PUFF EVERY ity of ([facility] 00:00: 12 [place] [facility]) 220 00 (TWELVE) Medical mcg/actuati HOURS. Branch on inhaler Rinse mouth after each use. triamcinolo 2-0 Yes [id number] Apply to [facility] ne 0.5 % 5-24 area(s) 3 ity of cream 00:00: (three) [place] 00 times Medical daily. Branch tamsulosin 2-0 Yes [id number] .8mg Take 2 [facility] (FLOMAX) 5-24 capsules ity of 0.4 mg 24 00:00: by [place] capsule 00 at Medical bedtime. Branch mirtazapine 2021-0 Yes [id number] 7.5mg Take 1 [facility] 7.5 mg 5-24 tablet by ity of tablet 00:00: mouth at [place] 00 bedtime. Medical Branch fluticasone 2021-0 Yes [id number] INHALE 1 [facility] propionate 5-24 PUFF EVERY ity of ([facility] 00:00: 12 [facility] [place] [facility]) 220 00 (TWELVE) Medical mcg/actuati HOURS. Branch on inhaler Rinse mouth after each use. triamcinolo 2021-0 Yes [id number] Apply to [facility] ne 0.5 % 5-24 area(s) 3 ity of cream 00:00: (three) [place] 00 times Medical daily. Branch tamsulosin 2021-0 Yes [id number] .8mg Take 2 [facility] (FLOMAX) 5-24 capsules ity of 0.4 mg 24 00:00: by [place] capsule 00 at Medical bedtime. Branch mirtazapine 2-0 Yes [id number] 7.5mg Take 1 [facility] 7.5 mg 5-24 tablet by ity of tablet 00:00: mouth at [place] 00 bedtime. Medical Branch fluticasone 2-0 Yes [id number] INHALE 1 [facility] propionate 5-24 PUFF EVERY ity of ([facility] 00:00: 12 [place] [facility]) 220 00 (TWELVE) Medical mcg/actuati HOURS. Branch on inhaler Rinse mouth after each use. triamcinolo 2-0 Yes [id number] Apply to [facility] ne 0.5 % 5-24 area(s) 3 ity of cream 00:00: (three) [place] 00 times Medical daily. Branch tamsulosin 2-0 Yes [id number] .8mg Take 2 [facility] (FLOMAX) 5-24 capsules ity of 0.4 mg 24 00:00: by [place] capsule 00 at Medical bedtime. Branch mirtazapine 2-0 Yes [id number] 7.5mg Take 1 [facility] 7.5 mg 5-24 tablet by ity of tablet 00:00: mouth at [place] 00 bedtime. Medical [facility] fluticasone 2021-0 Yes [id number] INHALE 1 [facility] propionate 5-24 PUFF EVERY ity of ([facility] 00:00: 12 [place] [facility]) 220 00 (TWELVE) Medical mcg/actuati HOURS. Branch on inhaler Rinse mouth after each use. triamcinolo 2021-0 Yes [id number] Apply to [facility] ne 0.5 % 5-24 area(s) 3 ity of cream 00:00: (three) [place] 00 times Medical daily. Branch tamsulosin 2021-0 Yes [id number] .8mg Take 2 [facility] (FLOM[facility]) 5-24 capsules ity of 0.4 mg 24 00:00: by [place] capsule 00 at Medical bedtime. Branch mirtazapine 2021-0 Yes [id number] 7.5mg Take 1 [facility] 7.5 mg 5-24 tablet by ity of tablet 00:00: mouth at [place] 00 bedtime. Medical Branch fluticasone 2021-0 Yes [id number] INHALE 1 [facility] propionate 5-24 PUFF EVERY ity of ([facility] 00:00: 12 [place] [facility]) 220 00 (TWELVE) Medical mcg/actuati HOURS. Branch on inhaler Rinse mouth after each use. triamcinolo 2-0 Yes [id number] Apply to [facility] ne 0.5 % 5-24 area(s) 3 ity of cream 00:00: (three) [place] 00 times Medical daily. Branch tamsulosin 2-0 Yes [id number] .8mg Take 2 [facility] (FLOM[facility]) 5-24 capsules ity of 0.4 mg 24 00:00: by [place] capsule 00 at Medical bedtime. Branch mirtazapine 2-0 Yes [id number] 7.5mg Take 1 [facility] 7.5 mg 5-24 tablet by ity of tablet 00:00: mouth at [place] 00 bedtime. Medical Branch fluticasone 2-0 Yes [id number] INHALE 1 [facility] propionate 5-24 PUFF EVERY ity of ([facility] 00:00: 12 [place] [facility]) 220 00 (TWELVE) Medical mcg/actuati HOURS. Branch on inhaler Rinse mouth after each use. triamcinolo 2-0 Yes [id number] Apply to [facility] ne 0.5 % 5-24 area(s) 3 ity of cream 00:00: (three) [place] 00 times Medical daily. Branch tamsulosin 2-0 Yes [id number] .8mg Take 2 [facility] (FLOM[facility]) 5-24 capsules ity of 0.4 mg 24 00:00: by [place] capsule 00 at Medical bedtime. Branch mirtazapine 2-0 Yes [id number] 7.5mg Take 1 [facility] 7.5 mg 5-24 tablet by ity of tablet 00:00: mouth at [place] 00 bedtime. Medical Branch fluticasone 2-0 Yes [id number] INHALE 1 [facility] propionate 5-24 PUFF EVERY [facility] ([facility] 00:00: 12 [facility] (TW[facility]VE) Medical mcg/actuati HOURS. Branch on inhaler Rinse mouth after each use. triamcinolo 2-0 Yes [id number] Apply to [facility] ne 0.5 % 5-24 area(s) 3 ity of cream 00:00: (three) [place] 00 times Medical daily. Branch tamsulosin 2-0 Yes [id number] .8mg Take 2 [facility] ([facility]OM[facility]) 5-24 capsules ity of 0.4 mg 24 00:00: by mouth [place] capsule 00 at Medical bedtime. Branch mirtazapine 2-0 Yes [id number] 7.5mg Take 1 [facility] 7.5 mg 5-24 tablet by ity of tablet 00:00: mouth at [place] 00 bedtime. Medical Branch fluticasone 2-0 Yes [id number] INHALE 1 [facility] propionate 5-24 PUFF EVERY ity of ([facility] 00:00: 12 [place] [facility]) 220 00 (TWELVE) Medical mcg/actuati HOURS. Branch on inhaler Rinse mouth after each use. triamcinolo 2-0 Yes [id number] Apply to [facility] ne 0.5 % 5-24 area(s) 3 ity of cream 00:00: (three) [place] 00 times Medical daily. Branch tamsulosin 2022-0 Yes [id number] .8mg Take 2 [facility] ([facility]OM[facility]) 5-24 capsules ity of 0.4 mg 24 00:00: by [place] capsule 00 at Medical bedtime. Branch mirtazapine 2021-0 Yes [id number] 7.5mg Take 1 [facility] 7.5 mg 5-24 tablet by ity of tablet 00:00: mouth at [place] 00 bedtime. Medical Branch fluticasone 2021-0 Yes [id number] INHALE 1 [facility] propionate 5-24 PUFF EVERY ity of ([facility] 00:00: 12 [place] [facility]) 220 00 (TWELVE) Medical mcg/actuati HOURS. Branch on inhaler Rinse mouth after each use. tamsulosin 2021-0 Yes [id number] .8mg Take 2 [facility] ([facility]OM[facility]) 5-24 capsules ity of 0.4 mg 24 00:00: by [place] capsule 00 at Medical bedtime. Branch mirtazapine 2021-0 Yes [id number] 7.5mg Take 1 [facility] 7.5 mg 5-24 tablet by ity of tablet 00:00: mouth at [place] 00 bedtime. Medical Branch fluticasone 2021-0 Yes [id number] INHALE 1 [facility] propionate 5-24 PUFF EVERY ity of ([facility] 00:00: 12 [place] [facility]) 220 00 (TWELVE) Medical mcg/actuati HOURS. Branch on inhaler Rinse mouth after each use. tamsulosin 2021-0 Yes [id number] .8mg Take 2 [facility] ([facility]OM[facility]) 5-24 capsules ity of 0.4 mg 24 00:00: by mouth [place] capsule 00 at Medical bedtime. Branch mirtazapine 2021-0 Yes [id number] 7.5mg Take 1 [facility] 7.5 mg 5-24 tablet by ity of tablet 00:00: mouth at [place] 00 bedtime. Medical Branch fluticasone 2021-0 Yes [id number] INHALE 1 [facility] propionate 5-24 PUFF EVERY ity of ([facility] 00:00: 12 [place] [facility]) 220 00 (TWELVE) Medical mcg/actuati HOURS. Branch on inhaler Rinse mouth after each use. tamsulosin 2-0 Yes [id number] .8mg Take 2 [facility] (FLOM[facility]) 5-24 capsules ity of 0.4 mg 24 00:00: by mouth [place] capsule 00 at Medical bedtime. Branch mirtazapine 2021-0 Yes [id number] 7.5mg Take 1 [facility] 7.5 mg 5-24 tablet by ity of tablet 00:00: mouth at [place] 00 bedtime. Medical Branch fluticasone 2021-0 Yes [id number] INHALE 1 [facility] propionate 5-24 PUFF EVERY ity of ([facility] 00:00: 12 [place] [facility]) 220 00 (TWELVE) Medical mcg/actuati HOURS. Branch on inhaler Rinse mouth after each use. tamsulosin 2021-0 Yes [id number] .8mg Take 2 [facility] ([facility]) 5-24 capsules ity of 0.4 mg 24 00:00: by mouth [place] capsule 00 at Medical bedtime. Branch mirtazapine 2021-0 Yes [id number] 7.5mg Take 1 [facility] 7.5 mg 5-24 tablet by ity of tablet 00:00: mouth at [place] 00 bedtime. Medical Branch fluticasone 2021-0 Yes [id number] INHALE 1 [facility] propionate 5-24 PUFF EVERY ity of ([facility] 00:00: 12 [place] [facility]) 220 00 (TWELVE) Medical mcg/actuati HOURS. Branch on inhaler Rinse mouth after each use. tamsulosin 2021-0 Yes [id number] .8mg Take 2 [facility] ([facility]) 5-24 capsules ity of 0.4 mg 24 00:00: by mouth [place] capsule 00 at Medical bedtime. Branch mirtazapine 2021-0 Yes [id number] 7.5mg Take 1 [facility] 7.5 mg 5-24 tablet by ity of tablet 00:00: mouth at [place] 00 bedtime. Medical Branch fluticasone 2021-0 Yes [id number] INHALE 1 [facility] propionate 5-24 PUFF EVERY ity of ([facility] 00:00: 12 [place] [facility]) 220 00 (TWELVE) Medical mcg/actuati HOURS. Branch on inhaler Rinse mouth after each use. tamsulosin 2-0 Yes [id number] .8mg Take 2 [facility] (FLOM[facility]) 5-24 capsules ity of 0.4 mg 24 00:00: by mouth [place] capsule 00 at Medical bedtime. Branch mirtazapine 2021-0 Yes [id number] 7.5mg Take 1 [facility] 7.5 mg 5-24 tablet by ity of tablet 00:00: mouth at [place] 00 bedtime. Medical Branch fluticasone 2-0 Yes [id number] INHALE 1 [facility] propionate 5-24 PUFF EVERY ity of ([facility] 00:00: 12 [place] [facility]) 220 00 (TWELVE) Medical mcg/actuati HOURS. Branch on inhaler Rinse mouth after each use. tamsulosin 2021-0 Yes [id number] .8mg Take 2 [facility] ([facility]) 5-24 capsules ity of 0.4 mg 24 00:00: by mouth [place] capsule 00 at Medical bedtime. Branch mirtazapine 2021-0 Yes [id number] 7.5mg Take 1 [facility] 7.5 mg 5-24 tablet by ity of tablet 00:00: mouth at [place] 00 bedtime. Medical Branch fluticasone 2021-0 Yes [id number] INHALE 1 [facility] propionate 5-24 PUFF EVERY ity of ([facility] 00:00: 12 [facility] (TWELVE) Medical mcg/actuati HOURS. Branch on inhaler Rinse mouth after each use. tamsulosin 2021-0 Yes [id number] .8mg Take 2 [facility] (FLOM[facility]) 5-24 capsules ity of 0.4 mg 24 00:00: by mouth [place] capsule 00 at Medical bedtime. Branch fluticasone 2021-0 Yes [id number] INHALE 1 [facility] propionate 5-24 PUFF EVERY ity of ([facility] 00:00: 12 [place] [facility]) 220 00 (TWELVE) Medical mcg/actuati HOURS. Branch on inhaler Rinse mouth after each use. tamsulosin 2-0 Yes [id number] .8mg Take 2 [facility] (FLOMAX) 5-24 capsules ity of 0.4 mg 24 00:00: by mouth [place] capsule 00 at Medical bedtime. Branch fluticasone 2-0 Yes [id number] INHALE 1 [facility] propionate 5-24 PUFF EVERY ity of ([facility] 00:00: 12 [place] [facility]) 220 00 (TWELVE) Medical mcg/actuati HOURS. Branch on inhaler Rinse mouth after each use. tamsulosin 2022-0 Yes [id number] .8mg Take 2 [facility] (FLOMAX) 5-24 capsules ity of 0.4 mg 24 00:00: by mouth [place] capsule 00 at Medical bedtime. Branch fluticasone 2-0 Yes [id number] INHALE 1 [facility] propionate 5-24 PUFF EVERY ity of ([facility] 00:00: 12 [place] [facility]) 220 00 (TWELVE) Medical mcg/actuati HOURS. Branch on inhaler Rinse mouth after each use. tamsulosin 2-0 Yes [id number] .8mg Take 2 [facility] (FLOMAX) 5-24 capsules ity of 0.4 mg 24 00:00: by mouth [place] capsule 00 at Medical bedtime. Branch fluticasone 2022-0 Yes [id number] INHALE 1 [facility] propionate 5-24 PUFF EVERY ity of ([facility] 00:00: 12 [place] [facility]) 220 00 (TWELVE) Medical mcg/actuati HOURS. Branch on inhaler Rinse mouth after each use. tamsulosin 2-0 Yes [id number] .8mg Take 2 [facility] (FLOMAX) 5-24 capsules ity of 0.4 mg 24 00:00: by mouth [place] capsule 00 at Medical bedtime. Branch fluticasone 2-0 Yes [id number] INHALE 1 [facility] propionate 5-24 PUFF EVERY ity of ([facility] 00:00: 12 [place] [facility]) 220 00 (TWELVE) Medical mcg/actuati HOURS. Branch on inhaler Rinse mouth after each use. tamsulosin 2-0 Yes [id number] .8mg Take 2 [facility] (FLOMAX) 5-24 capsules ity of 0.4 mg 24 00:00: by mouth [place] capsule 00 at Medical bedtime. Branch fluticasone 2022-0 Yes [id number] INHALE 1 [facility] propionate 5-24 PUFF EVERY ity of ([facility] 00:00: 12 [place] [facility]) 220 00 (TWELVE) Medical mcg/actuati HOURS. Branch on inhaler Rinse mouth after each use. tamsulosin 2022-0 Yes [id number] .8mg Take 2 [facility] (FLOMAX) 5-24 capsules ity of 0.4 mg 24 00:00: by mouth [place] capsule 00 at Medical bedtime. Branch fluticasone 2022-0 Yes [id number] INHALE 1 [facility] propionate 5-24 PUFF EVERY ity of ([facility] 00:00: 12 [place] [facility]) 220 00 (TWELVE) Medical mcg/actuati HOURS. Branch on inhaler Rinse mouth after each use. tamsulosin 2022-0 Yes [id number] .8mg Take 2 [facility] (FLOMAX) 5-24 capsules ity of 0.4 mg 24 00:00: by mouth [place] capsule 00 at Medical bedtime. Branch fluticasone 2022-0 Yes [id number] INHALE 1 [facility] propionate 5-24 PUFF EVERY ity of ([facility] 00:00: 12 [place] [facility]) 220 00 (TWELVE) Medical mcg/actuati HOURS. Branch on inhaler Rinse mouth after each use. tamsulosin 2022-0 Yes [id number] .8mg Take 2 [facility] (FLOM[facility]) 5-24 capsules ity of 0.4 mg 24 00:00: by mouth [place] capsule 00 at Medical bedtime. Branch fluticasone 2022-0 Yes [id number] INHALE 1 [facility] propionate 5-24 PUFF EVERY ity of ([facility] 00:00: 12 [place] [facility]) 220 00 (TWELVE) Medical mcg/actuati HOURS. Branch on inhaler Rinse mouth after each use. tamsulosin 2022-0 Yes [id number] .8mg Take 2 [facility] ([facility]) 5-24 capsules ity of 0.4 mg 24 00:00: by mouth [place] capsule 00 at Medical bedtime. Branch fluticasone 2022-0 Yes [id number] INHALE 1 [facility] propionate 5-24 PUFF EVERY ity of ([facility] 00:00: 12 [place] [facility]) 220 00 (TWELVE) Medical mcg/actuati HOURS. Branch on inhaler Rinse mouth after each use. tamsulosin 2022-0 Yes [id number] .8mg Take 2 [facility] ([facility]OM[facility]) 5-24 capsules ity of 0.4 mg 24 00:00: by mouth [place] capsule 00 at Medical bedtime. Branch fluticasone 2022-0 Yes [id number] INHALE 1 [facility] propionate 5-24 PUFF EVERY ity of ([facility] 00:00: 12 [place] [facility]) 220 00 (TWELVE) Medical mcg/actuati HOURS. Branch on inhaler Rinse mouth after each use. tamsulosin 2022-0 Yes [id number] .8mg Take 2 [facility] ([facility]OM[facility]) 5-24 capsules ity of 0.4 mg 24 00:00: by mouth [place] capsule 00 at Medical bedtime. Branch fluticasone 2-0 Yes [id number] INHALE 1 [facility] propionate 5-24 PUFF EVERY ity of ([facility] 00:00: 12 [place] [facility]) 220 00 (TWELVE) Medical mcg/actuati HOURS. Branch on inhaler Rinse mouth after each use. tamsulosin 2-0 Yes [id number] .8mg Take 2 [facility] ([facility]OM[facility]) 5-24 capsules ity of 0.4 mg 24 00:00: by mouth [place] capsule 00 at Medical bedtime. Branch fluticasone 2-0 Yes [id number] INHALE 1 [facility] propionate 5-24 PUFF EVERY ity of ([facility] 00:00: 12 [place] [facility]) 220 00 (TWELVE) Medical mcg/actuati HOURS. Branch on inhaler Rinse mouth after each use. tamsulosin 2021-0 Yes [id number] .8mg Take 2 [facility] ([facility]OM[facility]) 5-24 capsules ity of 0.4 mg 24 00:00: by mouth [place] capsule 00 at Medical bedtime. Branch fluticasone 2-0 Yes [id number] INHALE 1 [facility] propionate 5-24 PUFF EVERY ity of ([facility] 00:00: 12 [place] [facility]) 220 00 (TWELVE) Medical mcg/actuati HOURS. Branch on inhaler Rinse mouth after each use. tamsulosin 2-0 Yes [id number] .8mg Take 2 [facility] (FLOM[facility]) 5-24 capsules ity of 0.4 mg 24 00:00: by mouth [place] capsule 00 at Medical bedtime. Branch fluticasone 2-0 Yes [id number] INHALE 1 [facility] propionate 5-24 PUFF EVERY ity of ([facility]ENT 00:00: 12 [place] [facility]) 220 00 (TWELVE) Medical mcg/actuati HOURS. Branch on inhaler Rinse mouth after each use. tamsulosin 2-0 Yes [id number] .8mg Take 2 [facility] (FLOMAX) 5-24 capsules ity of 0.4 mg 24 00:00: by mouth [place] capsule 00 at Medical bedtime. Branch fluticasone 2022-0 Yes [id number] INHALE 1 [facility] propionate 5-24 PUFF EVERY ity of (FL[facility]ENT 00:00: 12 [place] [facility]) 220 00 (TWELVE) Medical mcg/actuati HOURS. Branch on inhaler Rinse mouth after each use. tamsulosin 2022-0 Yes [id number] .8mg Take 2 [facility] (FLOMAX) 5-24 capsules ity of 0.4 mg 24 00:00: by mouth [place] capsule 00 at Medical bedtime. Branch fluticasone 2-0 Yes [id number] INHALE 1 [facility] propionate 5-24 PUFF EVERY ity of ([facility]ENT 00:00: 12 [place] [facility]) 220 00 (TWELVE) Medical mcg/actuati HOURS. Branch on inhaler Rinse mouth after each use. tamsulosin 2-0 Yes [id number] .8mg Take 2 [facility] (FLOMAX) 5-24 capsules ity of 0.4 mg 24 00:00: by mouth [place] capsule 00 at Medical bedtime. Branch fluticasone 2021-0 Yes [id number] INHALE 1 [facility] propionate 5-24 PUFF EVERY ity of ([facility]ENT 00:00: 12 [place] [facility]) 220 00 (TWELVE) Medical mcg/actuati HOURS. Branch on inhaler Rinse mouth after each use. tamsulosin 2-0 Yes [id number] .8mg Take 2 [facility] (FLOMAX) 5-24 capsules ity of 0.4 mg 24 00:00: by mouth [place] capsule 00 at Medical bedtime. Branch fluticasone 2-0 Yes [id number] INHALE 1 [facility] propionate 5-24 PUFF EVERY ity of (FLOVENT 00:00: 12 [place] [facility]) 220 00 (TWELVE) Medical mcg/actuati HOURS. Branch on inhaler Rinse mouth after each use. tamsulosin 2022-0 Yes [id number] .8mg Take 2 [facility] (FLOMAX) 5-24 capsules ity of 0.4 mg 24 00:00: by mouth [place] capsule 00 at Medical bedtime. Branch fluticasone 2-0 Yes [id number] INHALE 1 [facility] propionate 5-24 PUFF EVERY ity of (FLOVENT 00:00: 12 [place] [facility]) 220 00 (TWELVE) Medical mcg/actuati HOURS. Branch on inhaler Rinse mouth after each use. tamsulosin 2022-0 Yes [id number] .8mg Take 2 [facility] (FLOMAX) 5-24 capsules ity of 0.4 mg 24 00:00: by mouth [place] capsule 00 at Medical bedtime. Branch fluticasone 2-0 Yes [id number] INHALE 1 [facility] propionate 5-24 PUFF EVERY ity of (FLOVENT 00:00: 12 [place] [facility]) 220 00 (TWELVE) Medical mcg/actuati HOURS. Branch on inhaler Rinse mouth after each use. tamsulosin 2-0 Yes [id number] .8mg Take 2 [facility] (FLOMAX) 5-24 capsules ity of 0.4 mg 24 00:00: by mouth [place] capsule 00 at Medical bedtime. Branch fluticasone 2-0 Yes [id number] INHALE 1 [facility] propionate 5-24 PUFF EVERY ity of (FLOVENT 00:00: 12 [place] [facility]) 220 00 (TWELVE) Medical mcg/actuati HOURS. Branch on inhaler Rinse mouth after each use. tamsulosin 2-0 Yes [id number] .8mg Take 2 [facility] (FLOMAX) 5-24 capsules ity of 0.4 mg 24 00:00: by mouth [place] capsule 00 at Medical bedtime. Branch fluticasone 2-0 Yes [id number] INHALE 1 [facility] propionate 5-24 PUFF EVERY ity of (FLOVENT 00:00: 12 [place] [facility]) 220 00 (TWELVE) Medical mcg/actuati HOURS. Branch on inhaler Rinse mouth after each use. tamsulosin 2-0 Yes [id number] .8mg Take 2 [facility] (FLOMAX) 5-24 capsules ity of 0.4 mg 24 00:00: by mouth [place] capsule 00 at Medical bedtime. Branch tamsulosin 2022-0 Yes [id number] .8mg Take 2 [facility] (FLOMAX) 5-24 capsules ity of 0.4 mg 24 00:00: by mouth [place] capsule 00 at Medical bedtime. Branch tamsulosin 2022-0 Yes [id number] .8mg Take 2 [facility] (FLOMAX) 5-24 capsules ity of 0.4 mg 24 00:00: by mouth [place] capsule 00 at Medical bedtime. Branch tamsulosin 2021-0 Yes [id number] .8mg Take 2 [facility] (FLOMAX) 5-24 capsules ity of 0.4 mg 24 00:00: by mouth [place] capsule 00 at Medical bedtime. Branch tamsulosin 2021-0 Yes [id number] .8mg Take 2 [facility] (FLOMAX) 5-24 capsules ity of 0.4 mg 24 00:00: by mouth [place] capsule 00 at Medical bedtime. Branch tamsulosin 2021-0 Yes [id number] .8mg Take 2 [facility] (FLOMAX) 5-24 capsules ity of 0.4 mg 24 00:00: by mouth [place] capsule 00 at Medical bedtime. Branch tamsulosin 2021-0 Yes [id number] .8mg Take 2 [facility] (FLOMAX) 5-24 capsules ity of 0.4 mg 24 00:00: by mouth [place] capsule 00 at Medical bedtime. Branch tamsulosin 2021-0 Yes [id number] .8mg Take 2 [facility] (FLOMAX) 5-24 capsules ity of 0.4 mg 24 00:00: by mouth [place] capsule 00 at Medical bedtime. Branch tamsulosin 2021-0 Yes [id number] .8mg Take 2 [facility] ([facility]OM[facility]) 5-24 capsules ity of 0.4 mg 24 00:00: by [place] capsule 00 at Medical bedtime. Branch tamsulosin 2021-0 Yes [id number] .8mg Take 2 [facility] (FLOMAX) 5-24 capsules ity of 0.4 mg 24 00:00: by [place] capsule 00 at Medical bedtime. Branch tamsulosin 2021-0 Yes [id number] .8mg Take 2 [facility] (FLOMAX) 5-24 capsules ity of 0.4 mg 24 00:00: by [place] 00 at Medical bedtime. Branch tamsulosin 2021-0 Yes [id number] .8mg Take 2 [facility] (FLOMAX) 5-24 capsules ity of 0.4 mg 24 00:00: by [place] capsule 00 at Medical bedtime. Branch tamsulosin 2021-0 Yes [id number] .8mg Take 2 [facility] (FLOMAX) 5-24 capsules ity of 0.4 mg 24 00:00: by [place] capsule 00 at Medical bedtime. Branch tamsulosin 2021-0 Yes [id number] .8mg Take 2 [facility] (FLOMAX) 5-24 capsules ity of 0.4 mg 24 00:00: by [place] capsule 00 at Medical bedtime. Branch tamsulosin 2021-0 Yes [id number] .8mg Take 2 [facility] (FLOMAX) 5-24 capsules ity of 0.4 mg 24 00:00: by [place] 00 at Medical bedtime. Branch tamsulosin 2021-0 Yes [id number] .8mg Take 2 [facility] (FLOMAX) 5-24 capsules ity of 0.4 mg 24 00:00: by [place] 00 at Medical bedtime. Branch mirtazapine 2021-0 Yes [id number] 7.5mg Take 1 [facility] 7.5 mg 5-24 tablet by ity of tablet 00:00: mouth at [place] [address] bedtime. Medical Branch fluticasone 2021-0 Yes [id number] INHALE 1 [facility] propionate 5-24 PUFF EVERY ity of (FLOVENT 00:00: 12 [facility] [place] [facility]) 220 00 (TWELVE) Medical mcg/actuati HOURS. Branch on inhaler Rinse mouth after each use. triamcinolo 2021-0 Yes [id number] Apply to [facility] ne 0.5 % 5-24 area(s) 3 ity of cream 00:00: (three) [place] 00 times Medical daily. Branch fluticasone 2021-0 2022- No [id number] INHALE 1 [facility] propionate 5-24 01-10 PUFF EVERY it y of (FLOVENT 00:00: 00:00 12 [facility] [place] [facility]) 220 00 :00 (TWELVE) Medical mcg/actuati HOURS. Branch on inhaler Rinse mouth after each use. fluticasone 2021-0 2022- No [id number] INHALE 1 [facility] propionate 5-24 01-10 PUFF EVERY it y of (FLOVENT 00:00: 00:[address] [place] [address]) 220 00 :00 (TWELVE) Medical mcg/actuati HOURS. Branch on inhaler Rinse mouth after each use. mirtazapine 2021-0 2022- No [id number] 7.5mg Take 1 [facility] 7.5 mg 5-24 11-26 tablet by ity of tablet 00:00: 00:00 mouth at [place] 00 :00 bedtime. Medical Branch mirtazapine 2021- No [id number] 7.5mg Take 1 [facility] 7.5 mg 5-24 11-26 tablet by ity of tablet 00:00: 00:00 mouth at [place] 00 :00 bedtime. Medical Branch mirtazapine 2021- No [id number] 7.5mg Take 1 [facility] 7.5 mg 5-24 11-26 tablet by ity of tablet 00:00: 00:00 mouth at [place] 00 :00 bedtime. Medical Branch triamcinolo 2021- No [id number] Apply to [facility] ne 0.5 % 5-24 10-10 area(s) 3 ity o f cream 00:00: 00:00 (three) [place] 00 :00 times Medical daily. Branch triamcinolo 2021- No [id number] Apply to [facility] ne 0.5 % 5-24 10-10 area(s) 3 ity o f cream 00:00: 00:00 (three) [place] 00 :00 times Medical daily. Branch sucralfate 2021-0 Yes [id number] TAKE 1 [facility] nivers 1 gram 5-12 TABLET BY ity of tablet 00:00: MOUTH 4 [place] 00 TIMES A Medical DAY Branch minoxidiL 2021-0 Yes [id number] 5mg Take 0.5 [facility] 10 mg 5-12 tablets by ity of tablet 00:00: mouth 2 [place] [address] (two) Medical times Branch daily. sucralfate 2021-0 Yes [id number] TAKE 1 U nivers 1 gram 5-12 TABLET BY ity of tablet 00:00: MOUTH 4 [place] 00 TIMES A Medical DAY Branch minoxidiL 2021-0 Yes [id number] 5mg Take 0.5 [facility] 10 mg 5-12 tablets by ity of tablet 00:00: mouth 2 [place] 00 (two) Medical times Branch daily. sucralfate 2021-0 Yes [id number] TAKE 1 U nivers 1 gram 5-12 TABLET BY ity of tablet 00:00: MOUTH 4 [place] 00 TIMES A Medical DAY Branch minoxidiL 2-0 Yes [id number] 5mg Take 0.5 [facility] 10 mg 5-12 tablets by ity of tablet 00:00: mouth (two) Medical times Branch daily. sucralfate 2022-0 Yes [id number] TAKE 1 U nivers 1 gram 5-12 TABLET BY ity of tablet 00:00: MOUTH TIMES A Medical DAY Branch minoxidiL 2022-0 Yes [id number] 5mg Take 0.5 [facility] 10 mg 5-12 tablets by ity of tablet 00:00: mouth 2 (two) Medical times Branch daily. sucralfate 2022-0 Yes [id number] TAKE 1 U nivers 1 gram 5-12 TABLET BY ity of tablet 00:00: MOUTH 4 TIMES A Medical DAY Branch minoxidiL 2022-0 Yes [id number] 5mg Take 0.5 [facility] 10 mg 5-12 tablets by ity of tablet 00:00: mouth (two) Medical times Branch daily. sucralfate 2-0 Yes [id number] TAKE 1 U nivers 1 gram 5-12 TABLET BY ity of tablet 00:00: MOUTH TIMES A Medical DAY Branch minoxidiL 2022-0 Yes [id number] 5mg Take 0.5 [facility] 10 mg 5-12 tablets by ity of tablet 00:00: mouth (two) Medical times Branch daily. sucralfate 2-0 Yes [id number] TAKE 1 U nivers 1 gram 5-12 TABLET BY ity of tablet 00:00: MOUTH TIMES A Medical DAY Branch minoxidiL 2022-0 Yes [id number] 5mg Take 0.5 [facility] 10 mg 5-12 tablets by ity of tablet 00:00: mouth (two) Medical times Branch daily. sucralfate 2022-0 Yes [id number] TAKE 1 [facility] nivers 1 gram 5-12 TABLET BY ity of tablet 00:00: MOUTH TIMES A Medical DAY Branch minoxidiL 2022-0 Yes [id number] 5mg Take 0.5 [facility] 10 mg 5-12 tablets by ity of tablet 00:00: mouth 2 (two) Medical times Branch daily. sucralfate 2022-0 Yes [id number] TAKE 1 [facility] nivers 1 gram 5-12 TABLET BY ity of tablet 00:00: MOUTH 4 TIMES A Medical DAY Branch minoxidiL 2022-0 Yes [id number] 5mg Take 0.5 [facility] 10 mg 5-12 tablets by ity of tablet 00:00: mouth (two) Medical times Branch daily. sucralfate 2022-0 Yes [id number] TAKE 1 U nivers 1 gram 5-12 TABLET BY ity of tablet 00:00: MOUTH TIMES A Medical DAY Branch minoxidiL 2022-0 Yes [id number] 5mg Take 0.5 [facility] 10 mg 5-12 tablets by ity of tablet 00:00: mouth (two) Medical times Branch daily. sucralfate 2022-0 Yes [id number] TAKE 1 U nivers 1 gram 5-12 TABLET BY ity of tablet 00:00: MOUTH TIMES A Medical DAY Branch minoxidiL 2022-0 Yes [id number] 5mg Take 0.5 [facility] 10 mg 5-12 tablets by ity of tablet 00:00: mouth (two) Medical times Branch daily. minoxidiL 2022-0 Yes [id number] 5mg Take 0.5 [facility] 10 mg 5-12 tablets by ity of tablet 00:00: mouth (two) Medical times Branch daily. minoxidiL 2022-0 Yes [id number] 5mg Take 0.5 [facility] 10 mg 5-12 tablets by ity of tablet 00:00: mouth (two) Medical times Branch daily. minoxidiL 2022-0 Yes [id number] 5mg Take 0.5 [facility] 10 mg 5-12 tablets by ity of tablet 00:00: mouth (two) Medical times Branch daily. minoxidiL 2022-0 Yes [id number] 5mg Take 0.5 [facility] 10 mg 5-12 tablets by ity of tablet 00:00: mouth (two) Medical times Branch daily. minoxidiL 2022-0 Yes [id number] 5mg Take 0.5 [facility] 10 mg 5-12 tablets by ity of tablet 00:00: mouth (two) Medical times Branch daily. minoxidiL 2022-0 Yes [id number] 5mg Take 0.5 [facility] 10 mg 5-12 tablets by ity of tablet 00:00: mouth (two) Medical times Branch daily. minoxidiL 2022-0 Yes [id number] 5mg Take 0.5 [facility] 10 mg 5-12 tablets by ity of tablet 00:00: mouth [place] (two) Medical times Branch daily. minoxidiL 2022-0 Yes [id number] 5mg Take 0.5 [facility] 10 mg 5-12 tablets by ity of tablet 00:00: mouth [place] (two) Medical times Branch daily. minoxidiL 2022-0 Yes [id number] 5mg Take 0.5 [facility] 10 mg 5-12 tablets by ity of tablet 00:00: mouth [place] (two) Medical times Branch daily. minoxidiL 2022-0 Yes [id number] 5mg Take 0.5 [facility] 10 mg 5-12 tablets by ity of tablet 00:00: mouth [place] (two) Medical times Branch daily. minoxidiL 2022-0 Yes [id number] 5mg Take 0.5 [facility] 10 mg 5-12 tablets by ity of tablet 00:00: [facility] [place] (two) Medical times Branch daily. minoxidiL 2022-0 Yes [id number] 5mg Take 0.5 [facility] 10 mg 5-12 tablets by ity of tablet 00:00: [address] (two) Medical times Branch daily. minoxidiL 2022-0 Yes [id number] 5mg Take 0.5 [facility] 10 mg 5-12 tablets by ity of tablet 00:00: mouth [place] (two) Medical times Branch daily. minoxidiL 2022-0 Yes [id number] 5mg Take 0.5 [facility] 10 mg 5-12 tablets by ity of tablet 00:00: [facility] [place] (two) Medical times Branch daily. minoxidiL 2022-0 Yes [id number] 5mg Take 0.5 [facility] 10 mg 5-12 tablets by ity of tablet 00:00: [facility] [place] (two) Medical times Branch daily. minoxidiL 2022-0 Yes [id number] 5mg Take 0.5 [facility] 10 mg 5-12 tablets by ity of tablet 00:00: mouth [place] (two) Medical times Branch daily. minoxidiL 2022-0 Yes [id number] 5mg Take 0.5 [facility] 10 mg 5-12 tablets by ity of tablet 00:00: mouth [address] [place] [address] (two) Medical times Branch daily. minoxidiL 2022-0 Yes [id number] 5mg Take 0.5 [facility] 10 mg 5-12 tablets by ity of tablet 00:00: mouth 2 [place] 00 (two) Medical times Branch daily. minoxidiL 2022-0 Yes [id number] 5mg Take 0.5 [facility] 10 mg 5-12 tablets by ity of tablet 00:00: mouth (two) Medical times Branch daily. minoxidiL 2022-0 Yes [id number] 5mg Take 0.5 [facility] 10 mg 5-12 tablets by ity of tablet 00:00: mouth (two) Medical times Branch daily. minoxidiL 2022-0 Yes [id number] 5mg Take 0.5 [facility] 10 mg 5-12 tablets by ity of tablet 00:00: mouth (two) Medical times Branch daily. minoxidiL 2022-0 Yes [id number] 5mg Take 0.5 [facility] 10 mg 5-12 tablets by ity of tablet 00:00: mouth (two) Medical times Branch daily. minoxidiL 2022-0 Yes [id number] 5mg Take 0.5 [facility] 10 mg 5-12 tablets by ity of tablet 00:00: mouth (two) Medical times Branch daily. minoxidiL 2022-0 Yes [id number] 5mg Take 0.5 [facility] 10 mg 5-12 tablets by ity of tablet 00:00: mouth (two) Medical times Branch daily. minoxidiL 2022-0 Yes [id number] 5mg Take 0.5 [facility] 10 mg 5-12 tablets by ity of tablet 00:00: mouth (two) Medical times Branch daily. minoxidiL 2022-0 Yes [id number] 5mg Take 0.5 [facility] 10 mg 5-12 tablets by ity of tablet 00:00: mouth (two) Medical times Branch daily. minoxidiL 2022-0 Yes [id number] 5mg Take 0.5 [facility] 10 mg 5-12 tablets by ity of tablet 00:00: mouth (two) Medical times Branch daily. minoxidiL 2022-0 Yes [id number] 5mg Take 0.5 [facility] 10 mg 5-12 tablets by ity of tablet 00:00: mouth (two) Medical times Branch daily. minoxidiL 2022-0 Yes [id number] 5mg Take 0.5 [facility] 10 mg 5-12 tablets by ity of tablet 00:00: mouth (two) Medical times Branch daily. minoxidiL 2022-0 Yes [id number] 5mg Take 0.5 [facility] 10 mg 5-12 tablets by ity of tablet 00:00: mouth (two) Medical times Branch daily. minoxidiL 2022-0 Yes [id number] 5mg Take 0.5 [facility] 10 mg 5-12 tablets by ity of tablet 00:00: mouth (two) Medical times Branch daily. minoxidiL 2022-0 Yes [id number] 5mg Take 0.5 [facility] 10 mg 5-12 tablets by ity of tablet 00:00: mouth (two) Medical times Branch daily. minoxidiL 2022-0 Yes [id number] 5mg Take 0.5 [facility] 10 mg 5-12 tablets by ity of tablet 00:00: mouth (two) Medical times Branch daily. minoxidiL 2022-0 Yes [id number] 5mg Take 0.5 [facility] 10 mg 5-12 tablets by ity of tablet 00:00: mouth (two) Medical times Branch daily. minoxidiL 2022-0 Yes [id number] 5mg Take 0.5 [facility] 10 mg 5-12 tablets by ity of tablet 00:00: mouth (two) Medical times Branch daily. minoxidiL 2022-0 Yes [id number] 5mg Take 0.5 [facility] 10 mg 5-12 tablets by ity of tablet 00:00: mouth (two) Medical times Branch daily. minoxidiL 2022-0 Yes [id number] 5mg Take 0.5 [facility] 10 mg 5-12 tablets by ity of tablet 00:00: mouth (two) Medical times Branch daily. minoxidiL 2022-0 Yes [id number] 5mg Take 0.5 [facility] 10 mg 5-12 tablets by ity of tablet 00:00: mouth (two) Medical times Branch daily. minoxidiL 2022-0 Yes [id number] 5mg Take 0.5 [facility] 10 mg 5-12 tablets by ity of tablet 00:00: mouth (two) Medical times Branch daily. minoxidiL 2022-0 Yes [id number] 5mg Take 0.5 [facility] 10 mg 5-12 tablets by ity of tablet 00:00: mouth (two) Medical times Branch daily. minoxidiL 2022-0 Yes [id number] 5mg Take 0.5 [facility] 10 mg 5-12 tablets by ity of tablet 00:00: mouth [place] (two) Medical times Branch daily. minoxidiL 2022-0 Yes [id number] 5mg Take 0.5 [facility] 10 mg 5-12 tablets by ity of tablet 00:00: mouth [place] (two) Medical times Branch daily. minoxidiL 2022-0 Yes [id number] 5mg Take 0.5 [facility] 10 mg 5-12 tablets by ity of tablet 00:00: mouth [place] (two) Medical times Branch daily. minoxidiL 2022-0 Yes [id number] 5mg Take 0.5 [facility] 10 mg 5-12 tablets by ity of tablet 00:00: mouth [place] (two) Medical times Branch daily. minoxidiL 2022-0 Yes [id number] 5mg Take 0.5 [facility] 10 mg 5-12 tablets by ity of tablet 00:00: [facility] [place] (two) Medical times Branch daily. minoxidiL 2-0 Yes [id number] 5mg Take 0.5 [facility] 10 mg 5-12 tablets by ity of tablet 00:00: mouth [place] (two) Medical times Branch daily. sucralfate 2021-0 Yes [id number] TAKE 1 U nivers 1 gram 5-12 TABLET BY ity of tablet 00:00: [facility] [place] TIMES A Medical DAY Branch minoxidiL 2-0 Yes [id number] 5mg Take 0.5 [facility] 10 mg 5-12 tablets by ity of tablet 00:00: [facility] [place] (two) Medical times Branch daily. sucralfate 2022-0 2022- No [id number] TAKE 1 [facility] 1 gram 5-12 10-10 TABLET BY ity of tablet 00:00: 00:00 MOUTH 4 [place] 00 :00 TIMES A Medical DAY Branch sucralfate 2022-0 2022- No [id number] TAKE 1 [facility] 1 gram 5-12 10-10 TABLET BY ity of tablet 00:00: 00:00 MOUTH 4 [place] 00 :00 TIMES A Medical DAY Branch mycophenola 2-0 Yes 500mg Take 2 [facility] vers te 250 mg 3-25 capsules ity of capsule 00:00: by mouth [place] [address] every 12 Medical (twelve) Branch hours. OR PER TRANSPLANT DOCTOR. Z 94.0 Kidney transplant Generic permitted Indication s: z94.0 kidney transplant tacrolimus 202-0 Yes [id number] 4mg Take 4 [facility] (PROGRAF) 1 3-25 capsules ity of mg capsule 00:00: by mouth [place] 00 every 12 Medical (twelve) Branch hours. Diagnosis: Z 94.0 generic permitted mycophenola 2021-0 Yes 500mg Take 2 [facility] vers te 250 mg 3-25 capsules ity of capsule 00:00: by mouth [place] 00 every 12 Medical (twelve) Branch hours. OR PER TRANSPLANT DOCTOR. Z 94.0 Kidney transplant Generic permitted Indication s: z94.0 kidney transplant tacrolimus 2021-0 Yes [id number] 4mg Take 4 [facility] (PROGRAF) 1 3-25 capsules ity of mg capsule 00:00: by mouth [place] 00 every 12 Medical (twelve) Branch hours. Diagnosis: Z 94.0 generic permitted mycophenola 2021-0 Yes 500mg Take 2 [facility] vers te 250 mg 3-25 capsules ity of capsule 00:00: by mouth [place] 00 every 12 Medical (twelve) Branch hours. OR PER TRANSPLANT DOCTOR. Z 94.0 Kidney transplant Generic permitted Indication s: z94.0 kidney transplant tacrolimus 2021-0 Yes [id number] 4mg Take 4 [facility] (PROGRAF) 1 3-25 capsules ity of mg capsule 00:00: by mouth [place] 00 every 12 Medical (twelve) Branch hours. Diagnosis: Z 94.0 generic permitted mycophenola 2021-0 Yes 500mg Take 2 [facility] vers te 250 mg 3-25 capsules ity of capsule 00:00: by mouth [place] 00 every 12 Medical (twelve) Branch hours. OR PER TRANSPLANT DOCTOR. Z 94.0 Kidney transplant Generic permitted Indication s: z94.0 kidney transplant tacrolimus 202-0 Yes [id number] 4mg Take 4 [facility] (PROGRAF) 1 3-25 capsules ity of mg capsule 00:00: by mouth [place] 00 every 12 Medical (twelve) Branch hours. Diagnosis: Z 94.0 generic permitted mycophenola 2022-0 Yes 500mg Take 2 [facility] vers te 250 mg 3-25 capsules ity of capsule 00:00: by mouth [place] 00 every 12 Medical (twelve) Branch hours. OR PER TRANSPLANT DOCTOR. Z 94.0 Kidney transplant Generic permitted Indication s: z94.0 kidney transplant tacrolimus 2021-0 Yes [id number] 4mg Take 4 [facility] (PROGRAF) 1 3-25 capsules ity of mg capsule 00:00: by mouth [place] 00 every 12 Medical (twelve) Branch hours. Diagnosis: Z 94.0 generic permitted mycophenola 2021-0 Yes 500mg Take 2 [facility] vers te 250 mg 3-25 capsules ity of capsule 00:00: by mouth [place] 00 every 12 Medical (twelve) Branch hours. OR PER TRANSPLANT DOCTOR. Z 94.0 Kidney transplant Generic permitted Indication s: z94.0 kidney transplant tacrolimus 2021-0 Yes [id number] 4mg Take 4 [facility] (PROGRAF) 1 3-25 capsules ity of mg capsule 00:00: by mouth [place] 00 every 12 Medical (twelve) Branch hours. Diagnosis: Z 94.0 generic permitted mycophenola 2021-0 Yes 500mg Take 2 [facility] vers te 250 mg 3-25 capsules ity of capsule 00:00: by mouth [place] 00 every 12 Medical (twelve) Branch hours. OR PER TRANSPLANT DOCTOR. Z 94.0 Kidney transplant Generic permitted Indication s: z94.0 kidney transplant tacrolimus 2021-0 Yes [id number] 4mg Take 4 [facility] (PROGRAF) 1 3-25 capsules ity of mg capsule 00:00: by mouth [place] 00 every 12 Medical (twelve) Branch hours. Diagnosis: Z 94.0 generic permitted mycophenola 2021-0 Yes 500mg Take 2 [facility] vers te 250 mg 3-25 capsules ity of capsule 00:00: by mouth [place] 00 every 12 Medical (twelve) Branch hours. OR PER TRANSPLANT DOCTOR. Z 94.0 Kidney transplant Generic permitted Indication s: z94.0 kidney transplant tacrolimus 202-0 Yes [id number] 4mg Take 4 [facility] (PROGRAF) 1 3-25 capsules ity of mg capsule 00:00: by mouth [place] 00 every 12 Medical (twelve) Branch hours. Diagnosis: Z 94.0 generic permitted mycophenola 2022-0 Yes 500mg Take 2 [facility] vers te 250 mg 3-25 capsules ity of capsule 00:00: by mouth [place] 00 every 12 Medical (twelve) Branch hours. OR PER TRANSPLANT DOCTOR. Z 94.0 Kidney transplant Generic permitted Indication s: z94.0 kidney transplant tacrolimus 2022-0 Yes [id number] 4mg Take 4 [facility] (PROGRAF) 1 3-25 capsules ity of mg capsule 00:00: by mouth [place] 00 every 12 Medical (twelve) Branch hours. Diagnosis: Z 94.0 generic permitted mycophenola 2022-0 Yes 500mg Take 2 [facility] vers te 250 mg 3-25 capsules ity of capsule 00:00: by mouth [place] 00 every 12 Medical (twelve) Branch hours. OR PER TRANSPLANT DOCTOR. Z 94.0 Kidney transplant Generic permitted Indication s: z94.0 kidney transplant tacrolimus 202-0 Yes [id number] 4mg Take 4 [facility] (PROGRAF) 1 3-25 capsules ity of mg capsule 00:00: by mouth [place] 00 every 12 Medical (twelve) Branch hours. Diagnosis: Z 94.0 generic permitted mycophenola 202-0 Yes 500mg Take 2 [facility] vers te 250 mg 3-25 capsules ity of capsule 00:00: by mouth [place] 00 every 12 Medical (twelve) Branch hours. OR PER TRANSPLANT DOCTOR. Z 94.0 Kidney transplant Generic permitted Indication s: z94.0 kidney transplant tacrolimus 2021-0 Yes [id number] 4mg Take 4 [facility] (PROGRAF) 1 3-25 capsules ity of mg capsule 00:00: by mouth [place] 00 every 12 Medical (twelve) Branch hours. Diagnosis: Z 94.0 generic permitted mycophenola 2021-0 Yes 500mg Take 2 [facility] vers te 250 mg 3-25 capsules ity of capsule 00:00: by mouth [place] 00 every 12 Medical (twelve) Branch hours. OR PER TRANSPLANT DOCTOR. Z 94.0 Kidney transplant Generic permitted Indication s: z94.0 kidney transplant tacrolimus 202-0 Yes [id number] 4mg Take 4 [facility] (PROGRAF) 1 3-25 capsules ity of mg capsule 00:00: by mouth [place] 00 every 12 Medical (twelve) Branch hours. Diagnosis: Z 94.0 generic permitted mycophenola 2022-0 Yes 500mg Take 2 [facility] vers te 250 mg 3-25 capsules ity of capsule 00:00: by mouth [place] 00 every 12 Medical (twelve) Branch hours. OR PER TRANSPLANT DOCTOR. Z 94.0 Kidney transplant Generic permitted Indication s: z94.0 kidney transplant tacrolimus 2022-0 Yes [id number] 4mg Take 4 [facility] (PROGRAF) 1 3-25 capsules ity of mg capsule 00:00: by mouth [place] 00 every 12 Medical (twelve) Branch hours. Diagnosis: Z 94.0 generic permitted mycophenola 2022-0 Yes 500mg Take 2 [facility] vers te 250 mg 3-25 capsules ity of capsule 00:00: by mouth [place] 00 every 12 Medical (twelve) Branch hours. OR PER TRANSPLANT DOCTOR. Z 94.0 Kidney transplant Generic permitted Indication s: z94.0 kidney transplant tacrolimus 2022-0 Yes [id number] 4mg Take 4 [facility] (PROGRAF) 1 3-25 capsules ity of mg capsule 00:00: by mouth [place] 00 every 12 Medical (twelve) Branch hours. Diagnosis: Z 94.0 generic permitted mycophenola 2022-0 Yes 500mg Take 2 [facility] vers te 250 mg 3-25 capsules ity of capsule 00:00: by mouth [place] 00 every 12 Medical (twelve) Branch hours. OR PER TRANSPLANT DOCTOR. Z 94.0 Kidney transplant Generic permitted Indication s: z94.0 kidney transplant tacrolimus 2022-0 Yes [id number] 4mg Take 4 [facility] (PROGRAF) 1 3-25 capsules ity of mg capsule 00:00: by mouth [place] 00 every 12 Medical (twelve) Branch hours. Diagnosis: Z 94.0 generic permitted mycophenola 2022-0 Yes 500mg Take 2 [facility] vers te 250 mg 3-25 capsules ity of capsule 00:00: by mouth [place] 00 every 12 Medical (twelve) Branch hours. OR PER TRANSPLANT DOCTOR. Z 94.0 Kidney transplant Generic permitted Indication s: z94.0 kidney transplant tacrolimus 2022-0 Yes [id number] 4mg Take 4 [facility] (PROGRAF) 1 3-25 capsules ity of mg capsule 00:00: by mouth [place] 00 every 12 Medical (twelve) Branch hours. Diagnosis: Z 94.0 generic permitted mycophenola 2022-0 Yes 500mg Take 2 [facility] vers te 250 mg 3-25 capsules ity of capsule 00:00: by mouth [place] 00 every 12 Medical (twelve) Branch hours. OR PER TRANSPLANT DOCTOR. Z 94.0 Kidney transplant Generic permitted Indication s: z94.0 kidney transplant tacrolimus 2022-0 Yes [id number] 4mg Take 4 [facility] (PROGRAF) 1 3-25 capsules ity of mg capsule 00:00: by mouth [place] 00 every 12 Medical (twelve) Branch hours. Diagnosis: Z 94.0 generic permitted mycophenola 2022-0 Yes 500mg Take 2 [facility] vers te 250 mg 3-25 capsules ity of capsule 00:00: by mouth [place] 00 every 12 Medical (twelve) Branch hours. OR PER TRANSPLANT DOCTOR. Z 94.0 Kidney transplant Generic permitted Indication s: z94.0 kidney transplant tacrolimus 202-0 Yes [id number] 4mg Take 4 [facility] (PROGRAF) 1 3-25 capsules ity of mg capsule 00:00: by mouth [place] 00 every 12 Medical (twelve) Branch hours. Diagnosis: Z 94.0 generic permitted mycophenola 2021-0 Yes 500mg Take 2 [facility] vers te 250 mg 3-25 capsules ity of capsule 00:00: by mouth [place] 00 every 12 Medical (twelve) Branch hours. OR PER TRANSPLANT DOCTOR. Z 94.0 Kidney transplant Generic permitted Indication s: z94.0 kidney transplant tacrolimus 2021-0 Yes [id number] 4mg Take 4 [facility] (PROGRAF) 1 3-25 capsules ity of mg capsule 00:00: by mouth [place] 00 every 12 Medical (twelve) Branch hours. Diagnosis: Z 94.0 generic permitted mycophenola 2021-0 Yes 500mg Take 2 [facility] vers te 250 mg 3-25 capsules ity of capsule 00:00: by mouth [place] 00 every 12 Medical (twelve) Branch hours. OR PER TRANSPLANT DOCTOR. Z 94.0 Kidney transplant Generic permitted Indication s: z94.0 kidney transplant tacrolimus 2021-0 Yes [id number] 4mg Take 4 [facility] (PROGRAF) 1 3-25 capsules ity of mg capsule 00:00: by mouth [place] 00 every 12 Medical (twelve) Branch hours. Diagnosis: Z 94.0 generic permitted mycophenola 2-0 Yes 500mg Take 2 [facility] vers te 250 mg 3-25 capsules ity of capsule 00:00: by mouth [place] 00 every 12 Medical (twelve) Branch hours. OR PER TRANSPLANT DOCTOR. Z 94.0 Kidney transplant Generic permitted Indication s: z94.0 kidney transplant tacrolimus 2022-0 Yes [id number] 4mg Take 4 [facility] (PROGRAF) 1 3-25 capsules ity of mg capsule 00:00: by mouth [place] 00 every 12 Medical (twelve) Branch hours. Diagnosis: Z 94.0 generic permitted mycophenola 2-0 Yes 500mg Take 2 [facility] vers te 250 mg 3-25 capsules ity of capsule 00:00: by mouth [place] 00 every 12 Medical (twelve) Branch hours. OR PER TRANSPLANT DOCTOR. Z 94.0 Kidney transplant Generic permitted Indication s: z94.0 kidney transplant tacrolimus 2022-0 Yes [id number] 4mg Take 4 [facility] (PROGRAF) 1 3-25 capsules ity of mg capsule 00:00: by mouth [place] 00 every 12 Medical (twelve) Branch hours. Diagnosis: Z 94.0 generic permitted mycophenola 2022-0 Yes 500mg Take 2 [facility] vers te 250 mg 3-25 capsules ity of capsule 00:00: by mouth [place] 00 every 12 Medical (twelve) Branch hours. OR PER TRANSPLANT DOCTOR. Z 94.0 Kidney transplant Generic permitted Indication s: z94.0 kidney transplant tacrolimus 2022-0 Yes [id number] 4mg Take 4 [facility] (PROGRAF) 1 3-25 capsules ity of mg capsule 00:00: by mouth [place] 00 every 12 Medical (twelve) Branch hours. Diagnosis: Z 94.0 generic permitted mycophenola 2022-0 Yes 500mg Take 2 [facility] vers te 250 mg 3-25 capsules ity of capsule 00:00: by mouth [place] 00 every 12 Medical (twelve) Branch hours. OR PER TRANSPLANT DOCTOR. Z 94.0 Kidney transplant Generic permitted Indication s: z94.0 kidney transplant tacrolimus 2022-0 Yes [id number] 4mg Take 4 [facility] (PROGRAF) 1 3-25 capsules ity of mg capsule 00:00: by mouth [place] 00 every 12 Medical (twelve) Branch hours. Diagnosis: Z 94.0 generic permitted mycophenola 2022-0 Yes 500mg Take 2 [facility] vers te 250 mg 3-25 capsules ity of capsule 00:00: by mouth [place] 00 every 12 Medical (twelve) Branch hours. OR PER TRANSPLANT DOCTOR. Z 94.0 Kidney transplant Generic permitted Indication s: z94.0 kidney transplant tacrolimus 2022-0 Yes [id number] 4mg Take 4 [facility] (PROGRAF) 1 3-25 capsules ity of mg capsule 00:00: by mouth [place] 00 every 12 Medical (twelve) Branch hours. Diagnosis: Z 94.0 generic permitted mycophenola 2022-0 Yes 500mg Take 2 [facility] vers te 250 mg 3-25 capsules ity of capsule 00:00: by mouth [place] 00 every 12 Medical (twelve) Branch hours. OR PER TRANSPLANT DOCTOR. Z 94.0 Kidney transplant Generic permitted Indication s: z94.0 kidney transplant tacrolimus 2022-0 Yes [id number] 4mg Take 4 [facility] (PROGRAF) 1 3-25 capsules ity of mg capsule 00:00: by mouth [place] 00 every 12 Medical (twelve) Branch hours. Diagnosis: Z 94.0 generic permitted mycophenola 2021-0 Yes 500mg Take 2 [facility] vers te 250 mg 3-25 capsules ity of capsule 00:00: by mouth [place] 00 every 12 Medical (twelve) Branch hours. OR PER TRANSPLANT DOCTOR. Z 94.0 Kidney transplant Generic permitted Indication s: z94.0 kidney transplant tacrolimus 2021-0 Yes [id number] 4mg Take 4 [facility] (PROGRAF) 1 3-25 capsules ity of mg capsule 00:00: by mouth [place] 00 every 12 Medical (twelve) Branch hours. Diagnosis: Z 94.0 generic permitted mycophenola 2021-0 Yes 500mg Take 2 [facility] vers te 250 mg 3-25 capsules ity of capsule 00:00: by mouth [place] 00 every 12 Medical (twelve) Branch hours. OR PER TRANSPLANT DOCTOR. Z 94.0 Kidney transplant Generic permitted Indication s: z94.0 kidney transplant tacrolimus 2021-0 Yes [id number] 4mg Take 4 [facility] (PROGRAF) 1 3-25 capsules ity of mg capsule 00:00: by mouth [place] 00 every 12 Medical (twelve) Branch hours. Diagnosis: Z 94.0 generic permitted mycophenola 2021-0 Yes 500mg Take 2 [facility] vers te 250 mg 3-25 capsules ity of capsule 00:00: by mouth [place] 00 every 12 Medical (twelve) Branch hours. OR PER TRANSPLANT DOCTOR. Z 94.0 Kidney transplant Generic permitted Indication s: z94.0 kidney transplant tacrolimus 202-0 Yes [id number] 4mg Take 4 [facility] (PR[facility]) 1 3-25 capsules [facility] mg capsule 00:00: by mouth [place] 00 every 12 [facility] (twelve) Branch hours. Diagnosis: Z 94.0 generic permitted mycophenola 2022-0 Yes 500mg Take 2 [facility] 250 mg 3-25 capsules [facility] of capsule 00:00: by mouth [place] 00 every 12 Medical (twelve) Branch hours. OR PER TRANSPLANT DOCTOR. Z 94.0 Kidney transplant Generic permitted Indication s: z94.0 kidney transplant tacrolimus 2022-0 Yes [id number] 4mg Take 4 [facility] (PROGRAF) 1 3-25 capsules [facility] mg capsule 00:00: by mouth [place] 00 every 12 [facility] (twelve) Branch hours. Diagnosis: Z 94.0 generic permitted mycophenola 2022-0 Yes 500mg Take 2 [facility] 250 mg 3-25 capsules [facility] of capsule 00:00: by mouth [place] 00 every 12 Medical (twelve) Branch hours. OR PER TRANSPLANT DOCTOR. Z 94.0 Kidney transplant Generic permitted Indication s: z94.0 kidney transplant tacrolimus 2022-0 Yes [id number] 4mg Take 4 [facility] (PROGRAF) 1 3-25 capsules [facility] mg capsule 00:00: by mouth [place] 00 every 12 [facility] (twelve) Branch hours. Diagnosis: Z 94.0 generic permitted mycophenola 2022-0 Yes 500mg Take 2 [facility] 250 mg 3-25 capsules [facility] of capsule 00:00: by mouth [place] 00 every 12 Medical (twelve) Branch hours. OR PER TRANSPLANT DOCTOR. Z 94.0 Kidney transplant Generic permitted Indication s: z94.0 kidney transplant tacrolimus 2021-0 Yes [id number] 4mg Take 4 [facility] (PROGRAF) 1 3-25 capsules [facility] mg capsule 00:00: by mouth [place] 00 every 12 [facility] (twelve) Branch hours. Diagnosis: Z 94.0 generic permitted mycophenola 2022-0 Yes 500mg Take 2 [facility] 250 mg 3-25 capsules [facility] of capsule 00:00: by mouth [place] 00 every 12 Medical (twelve) Branch hours. OR PER TRANSPLANT DOCTOR. Z 94.0 Kidney transplant Generic permitted Indication s: z94.0 kidney transplant tacrolimus 2022-0 Yes [id number] 4mg Take 4 [facility] (PROGRAF) 1 3-25 capsules [facility] mg capsule 00:00: by mouth [place] 00 every 12 [facility] (twelve) Branch hours. Diagnosis: Z 94.0 generic permitted mycophenola 2022-0 Yes 500mg Take 2 [facility] 250 mg 3-25 capsules [facility] of capsule 00:00: by mouth [place] 00 every 12 Medical (twelve) Branch hours. OR PER TRANSPLANT DOCTOR. Z 94.0 Kidney transplant Generic permitted Indication s: z94.0 kidney transplant mycophenola 2022-0 Yes 500mg Take 2 [facility] 250 mg 3-25 capsules [facility] of capsule 00:00: by mouth [place] 00 every 12 Medical (twelve) Branch hours. OR PER TRANSPLANT DOCTOR. Z 94.0 Kidney transplant Generic permitted Indication s: z94.0 kidney transplant mycophenola 2022-0 Yes 500mg Take 2 [facility] 250 mg 3-25 capsules [facility] of capsule 00:00: by mouth [place] 00 every 12 Medical (twelve) Branch hours. OR PER TRANSPLANT DOCTOR. Z 94.0 Kidney transplant Generic permitted Indication s: z94.0 kidney transplant mycophenola 2022-0 Yes 500mg Take 2 [facility] 250 mg 3-25 capsules [facility] of capsule 00:00: by mouth [place] 00 every 12 Medical (twelve) Branch hours. OR PER TRANSPLANT DOCTOR. Z 94.0 Kidney transplant Generic permitted Indication s: z94.0 kidney transplant mycophenola 2021-0 Yes 500mg Take 2 [facility] 250 mg 3-25 capsules [facility] of capsule 00:00: by mouth [place] 00 every 12 Medical (twelve) Branch hours. OR PER TRANSPLANT DOCTOR. Z 94.0 Kidney transplant Generic permitted Indication s: z94.0 kidney transplant mycophenola 2021-0 Yes 500mg Take 2 [facility] 250 mg 3-25 capsules [facility] of capsule 00:00: by mouth [place] 00 every 12 Medical (twelve) Branch hours. OR PER TRANSPLANT DOCTOR. Z 94.0 Kidney transplant Generic permitted Indication s: z94.0 kidney transplant mycophenola 2021-0 Yes 500mg Take 2 [facility] 250 mg 3-25 capsules [facility] of capsule 00:00: by mouth [place] 00 every 12 Medical (twelve) Branch hours. OR PER TRANSPLANT DOCTOR. Z 94.0 Kidney transplant Generic permitted Indication s: z94.0 kidney transplant mycophenola 202-0 Yes 500mg Take 2 [facility] 250 mg 3-25 capsules [facility] of capsule 00:00: by mouth [place] 00 every 12 Medical (twelve) Branch hours. OR PER TRANSPLANT DOCTOR. Z 94.0 Kidney transplant Generic permitted Indication s: z94.0 kidney transplant mycophenola 2022-0 Yes 500mg Take 2 [facility] 250 mg 3-25 capsules [facility] of capsule 00:00: by mouth [place] 00 every 12 Medical (twelve) Branch hours. OR PER TRANSPLANT DOCTOR. Z 94.0 Kidney transplant Generic permitted Indication s: z94.0 kidney transplant mycophenola 2022-0 Yes 500mg Take 2 [facility] 250 mg 3-25 capsules [facility] of capsule 00:00: by mouth [place] 00 every 12 Medical (twelve) Branch hours. OR PER TRANSPLANT DOCTOR. Z 94.0 Kidney transplant Generic permitted Indication s: z94.0 kidney transplant mycophenola 2022-0 Yes 500mg Take 2 [facility] 250 mg 3-25 capsules [facility] of capsule 00:00: by mouth [place] 00 every 12 Medical (twelve) Branch hours. OR PER TRANSPLANT DOCTOR. Z 94.0 Kidney transplant Generic permitted Indication s: z94.0 kidney transplant mycophenola 2022-0 Yes 500mg Take 2 [facility] 250 mg 3-25 capsules [facility] of capsule 00:00: by mouth [place] 00 every 12 Medical (twelve) Branch hours. OR PER TRANSPLANT DOCTOR. Z 94.0 Kidney transplant Generic permitted Indication s: z94.0 kidney transplant mycophenola 2021-0 Yes 500mg Take 2 [facility] 250 mg 3-25 capsules [facility] of capsule 00:00: by mouth [place] 00 every 12 Medical (twelve) Branch hours. OR PER TRANSPLANT DOCTOR. Z 94.0 Kidney transplant Generic permitted Indication s: z94.0 kidney transplant mycophenola 2021-0 Yes 500mg Take 2 [facility] 250 mg 3-25 capsules [facility] of capsule 00:00: by mouth [place] 00 every 12 Medical (twelve) Branch hours. OR PER TRANSPLANT DOCTOR. Z 94.0 Kidney transplant Generic permitted Indication s: z94.0 kidney transplant mycophenola 2021-0 Yes 500mg Take 2 [facility] 250 mg 3-25 capsules [facility] of capsule 00:00: by mouth [place] 00 every 12 Medical (twelve) Branch hours. OR PER TRANSPLANT DOCTOR. Z 94.0 Kidney transplant Generic permitted Indication s: z94.0 kidney transplant mycophenola 2022-0 Yes 500mg Take 2 [facility] 250 mg 3-25 capsules [facility] of capsule 00:00: by mouth [place] 00 every 12 Medical (twelve) Branch hours. OR PER TRANSPLANT DOCTOR. Z 94.0 Kidney transplant Generic permitted Indication s: z94.0 kidney transplant mycophenola 2022-0 Yes 500mg Take 2 [facility] 250 mg 3-25 capsules [facility] of capsule 00:00: by mouth [place] 00 every 12 Medical (twelve) Branch hours. OR PER TRANSPLANT DOCTOR. Z 94.0 Kidney transplant Generic permitted Indication s: z94.0 kidney transplant mycophenola 2022-0 Yes 500mg Take 2 [facility] 250 mg 3-25 capsules [facility] of capsule 00:00: by mouth [place] 00 every 12 Medical (twelve) Branch hours. OR PER TRANSPLANT DOCTOR. Z 94.0 Kidney transplant Generic permitted Indication s: z94.0 kidney transplant mycophenola 2021-0 Yes 500mg Take 2 [facility] 250 mg 3-25 capsules [facility] of capsule 00:00: by mouth [place] 00 every 12 Medical (twelve) Branch hours. OR PER TRANSPLANT DOCTOR. Z 94.0 Kidney transplant Generic permitted Indication s: z94.0 kidney transplant mycophenola 2021-0 Yes 500mg Take 2 [facility] 250 mg 3-25 capsules [facility] of capsule 00:00: by mouth [place] 00 every 12 Medical (twelve) Branch hours. OR PER TRANSPLANT DOCTOR. Z 94.0 Kidney transplant Generic permitted Indication s: z94.0 kidney transplant mycophenola 2021-0 Yes 500mg Take 2 [facility] 250 mg 3-25 capsules [facility] of capsule 00:00: by mouth [place] 00 every 12 Medical (twelve) Branch hours. OR PER TRANSPLANT DOCTOR. Z 94.0 Kidney transplant Generic permitted Indication s: z94.0 kidney transplant mycophenola 2021-0 Yes 500mg Take 2 [facility] 250 mg 3-25 capsules [facility] of capsule 00:00: by mouth [place] 00 every 12 Medical (twelve) Branch hours. OR PER TRANSPLANT DOCTOR. Z 94.0 Kidney transplant Generic permitted Indication s: z94.0 kidney transplant mycophenola 2021-0 Yes 500mg Take 2 [facility] 250 mg 3-25 capsules [facility] of capsule 00:00: by mouth [place] 00 every 12 Medical (twelve) Branch hours. OR PER TRANSPLANT DOCTOR. Z 94.0 Kidney transplant Generic permitted Indication s: z94.0 kidney transplant mycophenola 2021-0 Yes 500mg Take 2 [facility] 250 mg 3-25 capsules [facility] of capsule 00:00: by mouth [place] 00 every 12 Medical (twelve) Branch hours. OR PER TRANSPLANT DOCTOR. Z 94.0 Kidney transplant Generic permitted Indication s: z94.0 kidney transplant mycophenola 2021-0 Yes 500mg Take 2 [facility] 250 mg 3-25 capsules [facility] of capsule 00:00: by mouth [place] 00 every 12 Medical (twelve) Branch hours. OR PER TRANSPLANT DOCTOR. Z 94.0 Kidney transplant Generic permitted Indication s: z94.0 kidney transplant tacrolimus 2021-0 Yes [id number] 4mg Take 4 [facility] (PROGRAF) 1 3-25 capsules [facility] mg capsule 00:00: by mouth [place] 00 every 12 [facility] (twelve) Branch hours. Diagnosis: Z 94.0 generic permitted tacrolimus 2022-0 2022- No [id number] 4mg Take 4 [facility] (PROGRAF) 1 3-25 12-19 capsules [facility] of mg capsule 00:00: 00:00 by mouth [place] 00 :00 every 12 Medical (twelve) Branch hours. Diagnosis: Z 94.0 generic permitted tacrolimus 2022-0 2022- No [id number] 4mg Take 4 [facility] (PROGRAF) 1 3-25 12-19 capsules it[facility] of mg capsule 00:00: 00:00 by mouth [place] 00 :00 every 12 Medical (twelve) Branch hours. Diagnosis: Z 94.0 generic permitted tacrolimus 2022-0 2022- No [id number] 4mg Take 4 [facility] (PROGRAF) 1 3-25 12-19 capsules it[facility] of mg capsule 00:00: 00:00 by mouth [place] 00 :00 every 12 Medical (twelve) Branch hours. Diagnosis: Z 94.0 generic permitted tacrolimus 2022-0 2022- No [id number] 4mg Take 4 [facility] (PROGRAF) 1 3-25 12-19 capsules it[facility] of mg capsule 00:00: 00:00 by mouth [place] 00 :00 every 12 Medical (twelve) Branch hours. Diagnosis: Z 94.0 generic permitted tacrolimus 2022-0 2- No [id number] 4mg Take 4 [facility] (PROGRAF) 1 3-25 12-19 capsules it[facility] of mg capsule 00:00: 00:00 by mouth [place] 00 :00 every 12 Medical (twelve) Branch hours. Diagnosis: Z 94.0 generic permitted lisinopriL 2022-0 Yes 5mg Take 1 [facility] 5 mg tablet 3-16 tablet by [facility] of 00:00: mouth [place] 00 daily. [facility] Branch lisinopriL 2022-0 Yes 5mg Take 1 [facility] rs 5 mg tablet 3-16 tablet by [facility] of 00:00: mouth [place] 00 daily. [facility] lisinopriL 2022-0 Yes 5mg Take 1 [facility] rs 5 mg tablet 3-16 tablet by [facility] of 00:00: mouth [place] 00 daily. [facility] lisinopriL 2022-0 Yes 5mg Take 1 [facility] rs 5 mg tablet 3-16 tablet by [facility] of 00:00: mouth [place] 00 daily. [facility] lisinopriL 2022-0 Yes 5mg Take 1 [facility] rs 5 mg tablet 3-16 tablet by [facility] of 00:00: mouth [place] 00 daily. [facility] lisinopriL 2022-0 Yes 5mg Take 1 [facility] rs 5 mg tablet 3-16 tablet by [facility] of 00:00: mouth [place] 00 daily. [facility] lisinopriL 2022-0 Yes 5mg Take 1 [facility] rs 5 mg tablet 3-16 tablet by [facility] of 00:00: mouth [place] 00 daily. [facility] lisinopriL 2022-0 Yes 5mg Take 1 [facility] rs 5 mg tablet 3-16 tablet by [facility] of 00:00: mouth [place] 00 daily. [facility] lisinopriL 2022-0 Yes 5mg Take 1 [facility] rs 5 mg tablet 3-16 tablet by [facility] of 00:00: mouth [place] 00 daily. [facility] lisinopriL 2022-0 Yes 5mg Take 1 [facility] rs 5 mg tablet 3-16 tablet by [facility] of 00:00: mouth [place] 00 daily. [facility] lisinopriL 2022-0 Yes 5mg Take 1 [facility] rs 5 mg tablet 3-16 tablet by [facility] of 00:00: mouth [place] 00 daily. [facility] lisinopriL 2022-0 Yes 5mg Take 1 [facility] rs 5 mg tablet 3-16 tablet by [facility] of 00:00: mouth [place] 00 daily. [facility] lisinopriL 2022-0 Yes 5mg Take 1 [facility] rs 5 mg tablet 3-16 tablet by [facility] of 00:00: mouth [place] 00 daily. [facility] lisinopriL 2022-0 Yes 5mg Take 1 [facility] rs 5 mg tablet 3-16 tablet by [facility] of 00:00: mouth [place] 00 daily. [facility] lisinopriL 2022-0 Yes 5mg Take 1 [facility] rs 5 mg tablet 3-16 tablet by [facility] of 00:00: mouth [place] 00 daily. [facility] lisinopriL 2022-0 Yes 5mg Take 1 [facility] rs 5 mg tablet 3-16 tablet by [facility] of 00:00: mouth [place] 00 daily. [facility] lisinopriL 2022-0 Yes 5mg Take 1 [facility] rs 5 mg tablet 3-16 tablet by [facility] of 00:00: mouth [place] 00 daily. [facility] lisinopriL 2022-0 Yes 5mg Take 1 [facility] rs 5 mg tablet 3-16 tablet by [facility] of 00:00: mouth [place] 00 daily. [facility] lisinopriL 2022-0 Yes 5mg Take 1 [facility] rs 5 mg tablet 3-16 tablet by [facility] of 00:00: mouth [place] 00 daily. [facility] lisinopriL 2022-0 Yes 5mg Take 1 [facility] rs 5 mg tablet 3-16 tablet by [facility] of 00:00: mouth [place] 00 daily. [facility] lisinopriL 2022-0 Yes 5mg Take 1 [facility] rs 5 mg tablet 3-16 tablet by [facility] of 00:00: mouth [place] 00 daily. [facility] lisinopriL 2022-0 Yes 5mg Take 1 [facility] rs 5 mg tablet 3-16 tablet by [facility] of 00:00: mouth [place] 00 daily. [facility] lisinopriL 2022-0 Yes 5mg Take 1 [facility] rs 5 mg tablet 3-16 tablet by [facility] of 00:00: mouth [place] 00 daily. [facility] lisinopriL 2022-0 Yes 5mg Take 1 [facility] rs 5 mg tablet 3-16 tablet by [facility] of 00:00: mouth [place] 00 daily. [facility] lisinopriL 2022-0 Yes 5mg Take 1 [facility] rs 5 mg tablet 3-16 tablet by [facility] of 00:00: mouth [place] 00 daily. [facility] lisinopriL 2022-0 Yes 5mg Take 1 [facility] rs 5 mg tablet 3-16 tablet by [facility] of 00:00: mouth [place] 00 daily. [facility] lisinopriL 2022-0 Yes 5mg Take 1 [facility] 5 mg tablet 3-16 tablet by [facility] of 00:00: mouth [place] 00 daily. [facility] lisinopriL 2022-0 Yes 5mg Take 1 [facility] rs 5 mg tablet 3-16 tablet by [facility] of 00:00: mouth [place] 00 daily. [facility] lisinopriL 2022-0 Yes 5mg Take 1 [facility] 5 mg tablet 3-16 tablet by [facility] of 00:00: mouth [place] 00 daily. [facility] lisinopriL 2022-0 Yes 5mg Take 1 [facility] 5 mg tablet 3-16 tablet by [facility] of 00:00: mouth [place] 00 daily. [facility] lisinopriL 2022-0 Yes 5mg Take 1 [facility] 5 mg tablet 3-16 tablet by [facility] of 00:00: mouth [place] 00 daily. [facility] lisinopriL 2022-0 Yes 5mg Take 1 [facility] 5 mg tablet 3-16 tablet by [facility] of 00:00: mouth [place] 00 daily. [facility] lisinopriL 2022-0 Yes 5mg Take 1 [facility] rs 5 mg tablet 3-16 tablet by [facility] of 00:00: mouth [place] 00 daily. [facility] lisinopriL 2022-0 Yes 5mg Take 1 [facility] rs 5 mg tablet 3-16 tablet by [facility] of 00:00: mouth [place] 00 daily. [facility] lisinopriL 2022-0 Yes 5mg Take 1 [facility] rs 5 mg tablet 3-16 tablet by [facility] of 00:00: mouth [place] 00 daily. [facility] lisinopriL 2022-0 Yes 5mg Take 1 [facility] 5 mg tablet 3-16 tablet by [facility] of 00:00: mouth [place] 00 daily. [facility] lisinopriL 2022-0 Yes 5mg Take 1 [facility] rs 5 mg tablet 3-16 tablet by [facility] of 00:00: mouth [place] 00 daily. [facility] lisinopriL 2022-0 Yes 5mg Take 1 [facility] rs 5 mg tablet 3-16 tablet by [facility] of 00:00: mouth [place] 00 daily. [facility] lisinopriL 2022-0 Yes 5mg Take 1 [facility] rs 5 mg tablet 3-16 tablet by [facility] of 00:00: mouth [place] 00 daily. [facility] lisinopriL 2022-0 Yes 5mg Take 1 [facility] rs 5 mg tablet 3-16 tablet by [facility] of 00:00: mouth [place] 00 daily. [facility] lisinopriL 2022-0 Yes 5mg Take 1 [facility] rs 5 mg tablet 3-16 tablet by [facility] of 00:00: mouth [place] 00 daily. [facility] lisinopriL 2022-0 Yes 5mg Take 1 [facility] 5 mg tablet 3-16 tablet by [facility] of 00:00: mouth [place] 00 daily. [facility] lisinopriL 2022-0 Yes 5mg Take 1 [facility] 5 mg tablet 3-16 tablet by [facility] of 00:00: mouth [place] 00 daily. [facility] lisinopriL 2022-0 Yes 5mg Take 1 [facility] 5 mg tablet 3-16 tablet by [facility] of 00:00: mouth [place] 00 daily. [facility] lisinopriL 2022-0 Yes 5mg Take 1 [facility] 5 mg tablet 3-16 tablet by [facility] of 00:00: mouth [place] 00 daily. [facility] lisinopriL 2022-0 Yes 5mg Take 1 [facility] 5 mg tablet 3-16 tablet by [facility] of 00:00: mouth [place] 00 daily. [facility] lisinopriL 2022-0 Yes 5mg Take 1 [facility] 5 mg tablet 3-16 tablet by [facility] of 00:00: mouth [place] 00 daily. [facility] lisinopriL 2022-0 Yes 5mg Take 1 [facility] 5 mg tablet 3-16 tablet by [facility] of 00:00: mouth [place] 00 daily. [facility] lisinopriL 2022-0 Yes 5mg Take 1 [facility] 5 mg tablet 3-16 tablet by [facility] of 00:00: mouth [place] 00 daily. [facility] lisinopriL 2022-0 Yes 5mg Take 1 [facility] 5 mg tablet 3-16 tablet by [facility] of 00:00: mouth [place] 00 daily. [facility] lisinopriL 2022-0 Yes 5mg Take 1 [facility] 5 mg tablet 3-16 tablet by [facility] of 00:00: mouth [place] 00 daily. [facility] lisinopriL 2022-0 Yes 5mg Take 1 [facility] 5 mg tablet 3-16 tablet by [facility] of 00:00: mouth [place] 00 daily. [facility] lisinopriL 2022-0 Yes 5mg Take 1 [facility] 5 mg tablet 3-16 tablet by [facility] of 00:00: mouth [place] 00 daily. [facility] lisinopriL 2022-0 Yes 5mg Take 1 [facility] 5 mg tablet 3-16 tablet by [facility] of 00:00: mouth [place] 00 daily. [facility] lisinopriL 2022-0 Yes 5mg Take 1 [facility] 5 mg tablet 3-16 tablet by [facility] of 00:00: mouth [place] 00 daily. [facility] lisinopriL 2022-0 Yes 5mg Take 1 [facility] 5 mg tablet 3-16 tablet by [facility] of 00:00: mouth [place] 00 daily. [facility] lisinopriL 2022-0 Yes 5mg Take 1 [facility] 5 mg tablet 3-16 tablet by [facility] of 00:00: mouth [place] 00 daily. [facility] lisinopriL 2022-0 Yes 5mg Take 1 [facility] 5 mg tablet 3-16 tablet by [facility] of 00:00: mouth [place] 00 daily. [facility] predniSONE 2022-0 Yes [id number] 5mg Take 1 [facility] 5 mg tablet 2-10 tablet by [facility] of 00:00: mouth [place] 00 daily. [facility] predniSONE 2022-0 Yes [id number] 5mg Take 1 [facility] 5 mg tablet 2-10 tablet by [facility] of 00:00: mouth [place] 00 daily. [facility] predniSONE 2-0 Yes [id number] 5mg Take 1 [facility] 5 mg tablet 2-10 tablet by [facility] of 00:00: mouth [place] 00 daily. [facility] predniSONE 2-0 Yes [id number] 5mg Take 1 [facility] 5 mg tablet 2-10 tablet by [facility] of 00:00: mouth [place] 00 daily. [facility] predniSONE 2-0 Yes [id number] 5mg Take 1 [facility] 5 mg tablet 2-10 tablet by [facility] of 00:00: mouth [place] 00 daily. [facility] predniSONE 2022-0 Yes [id number] 5mg Take 1 [facility] 5 mg tablet 2-10 tablet by [facility] of 00:00: mouth [place] 00 daily. [facility] predniSONE 2022-0 Yes [id number] 5mg Take 1 [facility] 5 mg tablet 2-10 tablet by [facility] of 00:00: mouth [place] 00 daily. [facility] predniSONE 2022-0 Yes [id number] 5mg Take 1 [facility] 5 mg tablet 2-10 tablet by [facility] of 00:00: mouth [place] 00 daily. [facility] predniSONE 2022-0 Yes [id number] 5mg Take 1 [facility] 5 mg tablet 2-10 tablet by [facility] of 00:00: mouth [place] 00 daily. [facility] predniSONE 2022-0 Yes [id number] 5mg Take 1 [facility] 5 mg tablet 2-10 tablet by [facility] of 00:00: mouth [place] 00 daily. [facility] predniSONE 2022-0 Yes [id number] 5mg Take 1 [facility] 5 mg tablet 2-10 tablet by [facility] of 00:00: mouth [place] 00 daily. [facility] predniSONE 2022-0 Yes [id number] 5mg Take 1 [facility] 5 mg tablet 2-10 tablet by [facility] of 00:00: mouth [place] 00 daily. [facility] predniSONE 2022-0 Yes [id number] 5mg Take 1 [facility] 5 mg tablet 2-10 tablet by [facility] of 00:00: mouth [place] 00 daily. [facility] predniSONE 2022-0 Yes [id number] 5mg Take 1 [facility] 5 mg tablet 2-10 tablet by [facility] of 00:00: mouth [place] 00 daily. [facility] predniSONE 2-0 Yes [id number] 5mg Take 1 [facility] 5 mg tablet 2-10 tablet by [facility] of 00:00: mouth [place] 00 daily. [facility] predniSONE 2-0 Yes [id number] 5mg Take 1 [facility] 5 mg tablet 2-10 tablet by [facility] of 00:00: mouth [place] 00 daily. [facility] predniSONE 2-0 Yes [id number] 5mg Take 1 [facility] 5 mg tablet 2-10 tablet by [facility] of 00:00: mouth [place] 00 daily. [facility] predniSONE 2-0 Yes [id number] 5mg Take 1 [facility] 5 mg tablet 2-10 tablet by [facility] of 00:00: mouth [place] 00 daily. [facility] predniSONE 2-0 Yes [id number] 5mg Take 1 [facility] 5 mg tablet 2-10 tablet by [facility] of 00:00: mouth [place] 00 daily. [facility] predniSONE 2-0 Yes [id number] 5mg Take 1 [facility] 5 mg tablet 2-10 tablet by [facility] of 00:00: mouth [place] 00 daily. [facility] predniSONE 2022-0 Yes [id number] 5mg Take 1 [facility] 5 mg tablet 2-10 tablet by [facility] of 00:00: mouth [place] 00 daily. [facility] predniSONE 2022-0 Yes [id number] 5mg Take 1 [facility] 5 mg tablet 2-10 tablet by [facility] of 00:00: mouth [place] 00 daily. [facility] predniSONE 2022-0 Yes [id number] 5mg Take 1 [facility] 5 mg tablet 2-10 tablet by [facility] of 00:00: mouth [place] 00 daily. [facility] predniSONE 2022-0 Yes [id number] 5mg Take 1 [facility] 5 mg tablet 2-10 tablet by [facility] of 00:00: mouth [place] 00 daily. [facility] predniSONE 2022-0 Yes [id number] 5mg Take 1 [facility] 5 mg tablet 2-10 tablet by [facility] of 00:00: mouth [place] 00 daily. [facility] predniSONE 2-0 Yes [id number] 5mg Take 1 [facility] 5 mg tablet 2-10 tablet by [facility] of 00:00: mouth [place] 00 daily. [facility] predniSONE 2-0 Yes [id number] 5mg Take 1 [facility] 5 mg tablet 2-10 tablet by [facility] of 00:00: mouth [place] 00 daily. [facility] predniSONE 2022-0 Yes [id number] 5mg Take 1 [facility] 5 mg tablet 2-10 tablet by [facility] of 00:00: mouth [place] 00 daily. [facility] predniSONE 2022-0 Yes [id number] 5mg Take 1 [facility] 5 mg tablet 2-10 tablet by [facility] of 00:00: mouth [place] 00 daily. [facility] predniSONE 2-0 Yes [id number] 5mg Take 1 [facility] 5 mg tablet 2-10 tablet by [facility] of 00:00: mouth [place] 00 daily. [facility] predniSONE 2-0 Yes [id number] 5mg Take 1 [facility] 5 mg tablet 2-10 tablet by [facility] of 00:00: mouth [place] 00 daily. [facility] predniSONE 2-0 Yes [id number] 5mg Take 1 [facility] 5 mg tablet 2-10 tablet by [facility] of 00:00: mouth [place] 00 daily. [facility] predniSONE 2-0 Yes [id number] 5mg Take 1 [facility] 5 mg tablet 2-10 tablet by [facility] of 00:00: mouth [place] 00 daily. [facility] predniSONE 2-0 Yes [id number] 5mg Take 1 [facility] 5 mg tablet 2-10 tablet by [facility] of 00:00: mouth [place] 00 daily. [facility] predniSONE 2022-0 Yes [id number] 5mg Take 1 [facility] 5 mg tablet 2-10 tablet by [facility] of 00:00: mouth [place] 00 daily. [facility] predniSONE 2022-0 Yes [id number] 5mg Take 1 [facility] 5 mg tablet 2-10 tablet by [facility] of 00:00: mouth [place] 00 daily. [facility] predniSONE 2022-0 Yes [id number] 5mg Take 1 [facility] 5 mg tablet 2-10 tablet by [facility] of 00:00: mouth [place] 00 daily. [facility] predniSONE 2022-0 Yes [id number] 5mg Take 1 [facility] 5 mg tablet 2-10 tablet by [facility] of 00:00: mouth [place] 00 daily. [facility] predniSONE 2022-0 Yes [id number] 5mg Take 1 [facility] 5 mg tablet 2-10 tablet by [facility] of 00:00: mouth [place] 00 daily. [facility] predniSONE 2022-0 Yes [id number] 5mg Take 1 [facility] 5 mg tablet 2-10 tablet by [facility] of 00:00: mouth [place] 00 daily. [facility] predniSONE 2022-0 Yes [id number] 5mg Take 1 [facility] 5 mg tablet 2-10 tablet by [facility] of 00:00: mouth [place] 00 daily. [facility] predniSONE 2022-0 Yes [id number] 5mg Take 1 [facility] 5 mg tablet 2-10 tablet by [facility] of 00:00: mouth [place] 00 daily. [facility] predniSONE 2-0 Yes [id number] 5mg Take 1 [facility] 5 mg tablet 2-10 tablet by [facility] of 00:00: mouth [place] 00 daily. [facility] predniSONE 2-0 Yes [id number] 5mg Take 1 [facility] 5 mg tablet 2-10 tablet by [facility] of 00:00: mouth [place] 00 daily. [facility] predniSONE 2-0 Yes [id number] 5mg Take 1 [facility] 5 mg tablet 2-10 tablet by [facility] of 00:00: mouth [place] 00 daily. [facility] predniSONE 2-0 Yes [id number] 5mg Take 1 [facility] 5 mg tablet 2-10 tablet by [facility] of 00:00: mouth [place] 00 daily. [facility] predniSONE 2-0 Yes [id number] 5mg Take 1 [facility] 5 mg tablet 2-10 tablet by [facility] of 00:00: mouth [place] 00 daily. [facility] predniSONE 2022-0 Yes [id number] 5mg Take 1 [facility] 5 mg tablet 2-10 tablet by [facility] of 00:00: mouth [place] 00 daily. [facility] predniSONE 2022-0 Yes [id number] 5mg Take 1 [facility] 5 mg tablet 2-10 tablet by [facility] of 00:00: mouth [place] 00 daily. [facility] predniSONE 2022-0 Yes [id number] 5mg Take 1 [facility] 5 mg tablet 2-10 tablet by [facility] of 00:00: mouth [place] 00 daily. [facility] predniSONE 2022-0 Yes [id number] 5mg Take 1 [facility] 5 mg tablet 2-10 tablet by [facility] of 00:00: mouth [place] 00 daily. [facility] predniSONE 2022-0 Yes [id number] 5mg Take 1 [facility] 5 mg tablet 2-10 tablet by [facility] of 00:00: mouth [place] 00 daily. [facility] predniSONE 2022-0 Yes [id number] 5mg Take 1 [facility] 5 mg tablet 2-10 tablet by [facility] of 00:00: mouth [place] 00 daily. [facility] predniSONE 2022-0 Yes [id number] 5mg Take 1 [facility] 5 mg tablet 2-10 tablet by [facility] of 00:00: mouth [place] 00 daily. [facility] predniSONE 2022-0 Yes [id number] 5mg Take 1 [facility] 5 mg tablet 2-10 tablet by [facility] of 00:00: mouth [place] 00 daily. [facility] predniSONE 2022-0 Yes [id number] 5mg Take 1 [facility] 5 mg tablet 2-10 tablet by ity of 00:00: mouth [place] 00 daily. [facility] predniSONE 2022-0 Yes [id number] 5mg Take 1 [facility] 5 mg tablet 2-10 tablet by ity of 00:00: mouth [place] 00 daily. [facility] predniSONE 2022-0 Yes [id number] 5mg Take 1 [facility] 5 mg tablet 2-10 tablet by ity of 00:00: mouth [place] 00 daily. [facility] NITROGLYCER 2020-[id number] 1 [facility] IN 0.4 mg 2-21 TABLET ity of sublingual 00:00: UNDER THE [place] tablet 00 TONGUE Medical EVERY 5 Branch MINUTES NEEDED FOR CHEST PAIN FOR 3 DOSES. IF NO RELIEF, CALL 911. NITROGLYCER 2020-[id number] 1 [facility] IN 0.4 mg 2-21 TABLET ity of sublingual 00:00: UNDER THE [place] tablet 00 TONGUE Medical EVERY 5 Branch MINUTES NEEDED FOR CHEST PAIN FOR 3 DOSES. IF NO RELIEF, CALL 911. NITROGLYCER 2020-[id number] 1 [facility] IN 0.4 mg 2-21 TABLET ity of sublingual 00:00: UNDER THE [place] tablet 00 TONGUE Medical EVERY 5 Branch MINUTES NEEDED FOR CHEST PAIN FOR 3 DOSES. IF NO RELIEF, CALL 911. NITROGLYCER 2020-[id number] 1 [facility] IN 0.4 mg 2-21 TABLET ity of sublingual 00:00: UNDER THE [place] tablet 00 TONGUE Medical EVERY 5 Branch MINUTES NEEDED FOR CHEST PAIN FOR 3 DOSES. IF NO RELIEF, CALL 911. NITROGLYCER 2020-[id number] 1 [facility] IN 0.4 mg 2-21 TABLET ity of sublingual 00:00: UNDER THE [place] tablet 00 TONGUE Medical EVERY 5 Branch MINUTES NEEDED FOR CHEST PAIN FOR 3 DOSES. IF NO RELIEF, CALL 911. NITROGLYCER 2020-[id number] 1 [facility] IN 0.4 mg 2-21 TABLET ity of sublingual 00:00: UNDER THE [place] tablet 00 TONGUE Medical EVERY 5 Branch MINUTES NEEDED FOR CHEST PAIN FOR 3 DOSES. IF NO RELIEF, CALL 911. NITROGLYCER 2020-[id number] 1 [facility] IN 0.4 mg 2-21 TABLET ity of sublingual 00:00: UNDER THE [place] tablet 00 TONGUE Medical EVERY 5 Branch MINUTES NEEDED FOR CHEST PAIN FOR 3 DOSES. IF NO RELIEF, CALL 911. NITROGLYCER 2020-[id number] 1 [facility] IN 0.4 mg 2-21 TABLET ity of sublingual 00:00: UNDER THE [place] tablet 00 TONGUE Medical EVERY 5 Branch MINUTES NEEDED FOR CHEST PAIN FOR 3 DOSES. IF NO RELIEF, CALL 911. NITROGLYCER 2020-[id number] 1 [facility] IN 0.4 mg 2-21 TABLET ity of sublingual 00:00: UNDER THE [place] tablet 00 TONGUE Medical EVERY 5 Branch MINUTES NEEDED FOR CHEST PAIN FOR 3 DOSES. IF NO RELIEF, CALL 911. NITROGLYCER 2020-[id number] 1 [facility] IN 0.4 mg 2-21 TABLET ity of sublingual 00:00: UNDER THE [place] tablet 00 TONGUE Medical EVERY 5 Branch MINUTES NEEDED FOR CHEST PAIN FOR 3 DOSES. IF NO RELIEF, CALL 911. NITROGLYCER 2020-[id number] 1 [facility] IN 0.4 mg 2-21 TABLET ity of sublingual 00:00: UNDER THE [place] tablet 00 TONGUE Medical EVERY 5 Branch MINUTES NEEDED FOR CHEST PAIN FOR 3 DOSES. IF NO RELIEF, CALL 911. NITROGLYCER 2020-[id number] 1 [facility] IN 0.4 mg 2-21 TABLET ity of sublingual 00:00: UNDER THE [place] tablet 00 TONGUE Medical EVERY 5 Branch MINUTES NEEDED FOR CHEST PAIN FOR 3 DOSES. IF NO RELIEF, CALL 911. NITROGLYCER 2020-04- No [id number] PLACE 1 [facility] IN 0.4 mg 2-21 10-10 TABLET ity of sublingual 00:00: 00:00 UNDER THE [place] tablet 00 :00 TONGUE Medical EVERY 5 Branch MINUTES NEEDED FOR CHEST PAIN FOR 3 DOSES. IF NO RELIEF, CALL 911. NITROGLYCER 2020-04- No [id number] PLACE 1 [facility] IN 0.4 mg 2-21 10-10 TABLET ity of sublingual 00:00: 00:00 UNDER THE [place] tablet 00 :00 TONGUE Medical EVERY 5 Branch MINUTES NEEDED FOR CHEST PAIN FOR 3 DOSES. IF NO RELIEF, CALL 911. furosemide 2020-04 Yes [id number] 20mg Take 1 [facility] 20 mg 2-20 tablet by ity of tablet 00:00: mouth as [place] 00 needed Medical (swelling) Branch . furosemide 2020-04 Yes [id number] 20mg Take 1 [facility] 20 mg 2-20 tablet by ity of tablet 00:00: mouth as [place] 00 needed Medical (swelling) Branch . furosemide 2020-04 Yes [id number] 20mg Take 1 [facility] 20 mg 2-20 tablet by ity of tablet 00:00: mouth as [place] 00 needed Medical (swelling) Branch . furosemide 2020-04 Yes [id number] 20mg Take 1 [facility] 20 mg 2-20 tablet by ity of tablet 00:00: mouth as [place] 00 needed Medical (swelling) Branch . furosemide 2020-04 Yes [id number] 20mg Take 1 [facility] 20 mg 2-20 tablet by ity of tablet 00:00: mouth as [place] 00 needed Medical (swelling) Branch . furosemide 2020-04 Yes [id number] 20mg Take 1 [facility] 20 mg 2-20 tablet by ity of tablet 00:00: mouth as [place] 00 needed Medical (swelling) Branch . furosemide 2020-04 Yes [id number] 20mg Take 1 [facility] 20 mg 2-20 tablet by ity of tablet 00:00: mouth as [place] 00 needed Medical (swelling) Branch . furosemide 2020-04 Yes [id number] 20mg Take 1 [facility] 20 mg 2-20 tablet by ity of tablet 00:00: mouth as [place] 00 needed Medical (swelling) Branch . furosemide 2020-04- No [id number] 20mg Take 1 [facility] 20 mg 2-20 10-03 tablet by ity of tablet 00:00: 00:00 mouth as [place] 00 :00 needed Medical (swelling) Branch . furosemide 2020-04- No [id number] 20mg Take 1 [facility] 20 mg 2-20 10- tablet by ity of tablet 00:00: 00:00 mouth as [place] 00 :00 needed Medical (swelling) Branch . OMEPRAZOLE 2020-04 Yes [id number] TAKE 1 [facility] 40 mg 1-19 CAPSULE BY ity of capsule 00:00: MOUTH [place] 00 EVERY DAY Medical Branch OMEPRAZOLE 2020-04 Yes [id number] TAKE 1 [facility] 40 mg 1-19 CAPSULE BY ity of capsule 00:00: MOUTH [place] 00 EVERY DAY Medical Branch OMEPRAZOLE 2020-04 Yes [id number] TAKE 1 [facility] 40 mg 1-19 CAPSULE BY ity of capsule 00:00: MOUTH [place] 00 EVERY DAY Medical Branch OMEPRAZOLE 2020-04 Yes [id number] TAKE 1 [facility] 40 mg 1-19 CAPSULE BY ity of capsule 00:00: MOUTH [place] 00 EVERY DAY Medical Branch OMEPRAZOLE 2020-04 Yes [id number] TAKE 1 [facility] 40 mg 1-19 CAPSULE BY ity of capsule 00:00: MOUTH [place] 00 EVERY DAY Medical Branch OMEPRAZOLE 2020-04 Yes [id number] TAKE 1 [facility] 40 mg 1-19 CAPSULE BY ity of capsule 00:00: MOUTH [place] 00 EVERY DAY Medical Branch OMEPRAZOLE 2020-04 Yes [id number] TAKE 1 [facility] 40 mg 1-19 CAPSULE BY ity of capsule 00:00: MOUTH [place] 00 EVERY DAY Medical Branch OMEPRAZOLE 2020-04 Yes [id number] TAKE 1 [facility] 40 mg 1-19 CAPSULE BY ity of capsule 00:00: MOUTH [place] 00 EVERY DAY Medical Branch OMEPRAZOLE 2020-04 Yes [id number] TAKE 1 [facility] 40 mg 1-19 CAPSULE BY ity of capsule 00:00: MOUTH [place] 00 EVERY DAY Medical Branch OMEPRAZOLE 2020-04 Yes [id number] TAKE 1 [facility] 40 mg 1-19 CAPSULE BY ity of capsule 00:00: MOUTH [place] 00 EVERY DAY Medical Branch OMEPRAZOLE 2020-04 Yes [id number] TAKE 1 [facility] 40 mg 1-19 CAPSULE BY ity of capsule 00:00: MOUTH [place] 00 EVERY DAY Medical Branch OMEPRAZOLE 2020-04 Yes [id number] TAKE 1 [facility] 40 mg 1-19 CAPSULE BY ity of capsule 00:00: MOUTH [place] 00 EVERY DAY Medical Branch OMEPRAZOLE 2020-04 Yes [id number] TAKE 1 [facility] 40 mg 1-19 CAPSULE BY ity of capsule 00:00: MOUTH [place] 00 EVERY DAY Medical Branch OMEPRAZOLE 2020- Yes [id number] TAKE 1 [facility] 40 mg 1-19 CAPSULE BY ity of capsule 00:00: MOUTH [place] 00 EVERY DAY Medical Branch OMEPRAZOLE 2020-1 Yes [id number] TAKE 1 [facility] 40 mg 1-19 CAPSULE BY ity of capsule 00:00: MOUTH [place] 00 EVERY DAY Medical Branch OMEPRAZOLE 2020-1 Yes [id number] TAKE 1 [facility] 40 mg 1-19 CAPSULE BY ity of capsule 00:00: MOUTH [place] 00 EVERY DAY Medical Branch OMEPRAZOLE 2020-1 Yes [id number] TAKE 1 [facility] 40 mg 1-19 CAPSULE BY ity of capsule 00:00: MOUTH [place] 00 EVERY DAY Medical Branch OMEPRAZOLE 2020- Yes [id number] TAKE 1 [facility] 40 mg 1-19 CAPSULE BY ity of capsule 00:00: MOUTH [place] 00 EVERY DAY Medical Branch OMEPRAZOLE 2020- Yes [id number] TAKE 1 [facility] 40 mg 1-19 CAPSULE BY ity of capsule 00:00: MOUTH [place] 00 EVERY DAY Medical Branch OMEPRAZOLE 2020-1 Yes [id number] TAKE 1 [facility] 40 mg 1-19 CAPSULE BY ity of capsule 00:00: MOUTH [place] 00 EVERY DAY Medical Branch OMEPRAZOLE 2020-1 Yes [id number] TAKE 1 [facility] 40 mg 1-19 CAPSULE BY ity of capsule 00:00: MOUTH [place] 00 EVERY DAY Medical Branch OMEPRAZOLE 2020-1 2- No [id number] TAKE 1 [facility] 40 mg 1-19 11-28 CAPSULE BY ity of capsule 00:00: 00:00 MOUTH [place] 00 :00 EVERY DAY Medical Branch OMEPRAZOLE 2020-1 2022- No [id number] TAKE 1 [facility] 40 mg 1-19 11-28 CAPSULE BY ity of capsule 00:00: 00:00 MOUTH [place] 00 :00 EVERY DAY Medical Branch OMEPRAZOLE 2020-1 2021- No [id number] TAKE 1 [facility] 40 mg 1-19 11-28 CAPSULE BY ity of capsule 00:00: 00:00 MOUTH [place] 00 :00 EVERY DAY Medical Branch ezetimibe 2020-0 Yes [id number] 10mg Take 1 U n[facility] 10 mg 9-17 tablet by ity of tablet 00:00: mouth [place] 00 daily. Medical Branch ezetimibe 2020-0 Yes [id number] 10mg Take 1 U nivers 10 mg 9-17 tablet by ity of tablet 00:00: mouth [place] 00 daily. Medical Branch ezetimibe 2020-0 Yes [id number] 10mg Take 1 U nivers 10 mg 9-17 tablet by ity of tablet 00:00: mouth [place] 00 daily. Medical Branch ezetimibe 2020-0 Yes [id number] 10mg Take 1 U nivers 10 mg 9-17 tablet by ity of tablet 00:00: mouth [place] 00 daily. Medical Branch ezetimibe 2020-0 Yes [id number] 10mg Take 1 U nivers 10 mg 9-17 tablet by ity of tablet 00:00: mouth [place] 00 daily. Medical Branch ezetimibe 2020-0 Yes [id number] 10mg Take 1 U nivers 10 mg 9-17 tablet by ity of tablet 00:00: mouth [place] 00 daily. Medical Branch ezetimibe 2020-0 Yes [id number] 10mg Take 1 U nivers 10 mg 9-17 tablet by ity of tablet 00:00: mouth [place] 00 daily. Medical Branch ezetimibe 2020-0 Yes [id number] 10mg Take 1 U nivers 10 mg 9-17 tablet by ity of tablet 00:00: mouth [place] 00 daily. Medical Branch ezetimibe 2020-0 Yes [id number] 10mg Take 1 U nivers 10 mg 9-17 tablet by ity of tablet 00:00: mouth [place] 00 daily. Medical Branch ezetimibe 2020-0 Yes [id number] 10mg Take 1 U nivers 10 mg 9-17 tablet by ity of tablet 00:00: mouth [place] 00 daily. Medical Branch ezetimibe 2020-0 Yes [id number] 10mg Take 1 U nivers 10 mg 9-17 tablet by ity of tablet 00:00: mouth [place] 00 daily. Medical Branch ezetimibe 1-0 Yes [id number] 10mg Take 1 U nivers 10 mg 9-17 tablet by ity of tablet 00:00: mouth [place] 00 daily. Medical Branch ezetimibe 2020-0 Yes [id number] 10mg Take 1 U nivers 10 mg 9-17 tablet by ity of tablet 00:00: mouth [place] 00 daily. Medical Branch ezetimibe 2021-0 Yes [id number] 10mg Take 1 U nivers 10 mg 9-17 tablet by ity of tablet 00:00: mouth [place] 00 daily. Medical Branch ezetimibe 0 2022- No [id number] 10mg Take 1 [facility] 10 mg 9-17 10-14 tablet by ity of tablet 00:00: 00:00 mouth [place] 00 :00 daily. Medical Branch magnesium Yes 400mg Take 1 Tab U nivers oxide 8-18 by mouth 2 ity of (MAG-OX 00:00: (two) [place] 400) 400 mg 00 times Medical tablet daily. Branch magnesium Yes 400mg Take 1 Tab U nivers oxide 8-18 by mouth 2 ity of (MAG-OX 00:00: (two) [place] 400) 400 mg 00 times Medical tablet daily. Branch magnesium Yes 400mg Take 1 Tab U nivers oxide 8-18 by mouth 2 ity of (MAG-OX 00:00: (two) [place] 400) 400 mg 00 times Medical tablet daily. Branch magnesium Yes 400mg Take 1 Tab U nivers oxide 8-18 by mouth 2 ity of (MAG-OX 00:00: (two) [place] 400) 400 mg 00 times Medical tablet daily. Branch magnesium Yes 400mg Take 1 Tab U nivers oxide 8-18 by mouth 2 ity of (MAG-OX 00:00: (two) [place] 400) 400 mg 00 times Medical tablet daily. Branch magnesium Yes 400mg Take 1 Tab U nivers oxide 8-18 by mouth 2 ity of (MAG-OX 00:00: (two) [place] 400) 400 mg 00 times Medical tablet daily. Branch magnesium Yes 400mg Take 1 Tab U nivers oxide 8-18 by mouth 2 ity of (MAG-OX 00:00: (two) [place] 400) 400 mg 00 times Medical tablet daily. Branch magnesium 2010- Yes 400mg Take 1 Tab U nivers oxide 8-18 by mouth 2 ity of (MAG-OX 00:00: (two) [place] 400) 400 mg 00 times Medical tablet daily. Branch magnesium Yes 400mg Take 1 Tab U nivers oxide 8-18 by mouth 2 ity of (MAG-OX 00:00: (two) [place] 400) 400 mg 00 times Medical tablet daily. Branch magnesium 2011-0 Yes 400mg Take 1 Tab U nivers oxide 8-18 by mouth 2 ity of (MAG-OX 00:00: (two) [place] 400) 400 mg 00 times Medical tablet daily. Branch magnesium 2011-0 Yes 400mg Take 1 Tab U nivers oxide 8-18 by mouth 2 ity of (MAG-OX 00:00: (two) [place] 400) 400 mg 00 times Medical tablet daily. Branch magnesium 2011-0 Yes 400mg Take 1 Tab U nivers oxide 8-18 by mouth 2 ity of (MAG-OX 00:00: (two) [place] 400) 400 mg 00 times Medical tablet daily. Branch magnesium 2010-0 Yes 400mg Take 1 Tab U nivers oxide 8-18 by mouth 2 ity of (MAG-OX 00:00: (two) [place] 400) 400 mg 00 times Medical tablet daily. Branch magnesium 2010-0 Yes 400mg Take 1 Tab U nivers oxide 8-18 by mouth 2 ity of (MAG-OX 00:00: ([facility]) [place] 400) 400 mg 00 times Medical tablet daily. Branch magnesium 2010-0 Yes 400mg Take 1 Tab U nivers oxide 8-18 by mouth 2 ity of (MAG-OX 00:00: (two) [place] 400) 400 mg 00 times Medical tablet daily. Branch magnesium 2011-0 Yes 400mg Take 1 Tab U nivers oxide 8-18 by mouth 2 ity of (MAG-OX 00:00: (two) [place] 400) 400 mg 00 times Medical tablet daily. Branch magnesium 2010-0 Yes 400mg Take 1 Tab U nivers oxide 8-18 by mouth 2 ity of (MAG-OX 00:00: (two) [place] 400) 400 mg 00 times Medical tablet daily. Branch magnesium 2010-0 Yes 400mg Take 1 Tab U nivers oxide 8-18 by mouth 2 ity of (MAG-OX 00:00: (two) [place] 400) 400 mg 00 times Medical tablet daily. Branch magnesium 2011-0 Yes 400mg Take 1 Tab U nivers oxide 8-18 by mouth 2 ity of (MAG-OX 00:00: (two) [place] 400) 400 mg 00 times Medical tablet daily. Branch magnesium 2011-0 Yes 400mg Take 1 Tab U nivers oxide 8-18 by mouth 2 ity of (MAG-OX 00:00: (two) [place] 400) 400 mg 00 times Medical tablet daily. Branch magnesium 2010-0 Yes 400mg Take 1 Tab U nivers oxide 8-18 by mouth 2 ity of (MAG-OX 00:00: (two) [place] 400) 400 mg 00 times Medical tablet daily. Branch magnesium 2010-0 Yes 400mg Take 1 Tab U nivers oxide 8-18 by mouth 2 ity of (MAG-OX 00:00: (two) [place] 400) 400 mg 00 times Medical tablet daily. Branch magnesium 2010-0 Yes 400mg Take 1 Tab U nivers oxide 8-18 by mouth 2 ity of (MAG-OX 00:00: (two) [place] 400) 400 mg 00 times Medical tablet daily. Branch magnesium 2010-0 Yes 400mg Take 1 Tab U nivers oxide 8-18 by mouth 2 ity of (MAG-OX 00:00: ([facility]) [place] 400) 400 mg 00 times Medical tablet daily. Branch magnesium 2010-0 Yes 400mg Take 1 Tab U nivers oxide 8-18 by mouth 2 ity of (MAG-OX 00:00: ([facility]) [place] 400) 400 mg 00 times Medical tablet daily. Branch magnesium 2010-0 Yes 400mg Take 1 Tab U nivers oxide 8-18 by mouth 2 ity of (MAG-OX 00:00: ([facility]) [place] 400) 400 mg 00 times Medical tablet daily. Branch magnesium 2010-0 Yes 400mg Take 1 Tab U nivers oxide 8-18 by mouth 2 ity of (MAG-OX 00:00: ([facility]) [place] 400) 400 mg 00 times Medical tablet daily. Branch magnesium 2010-0 Yes 400mg Take 1 Tab U nivers oxide 8-18 by mouth 2 ity of (MAG-OX 00:00: (two) [place] 400) 400 mg 00 times Medical tablet daily. Branch magnesium 2010-0 Yes 400mg Take 1 Tab U nivers oxide 8-18 by mouth 2 ity of (MAG-OX 00:00: (two) [place] 400) 400 mg 00 times Medical tablet daily. Branch magnesium 2011-0 Yes 400mg Take 1 Tab U nivers oxide 8-18 by mouth 2 ity of (MAG-OX 00:00: (two) [place] 400) 400 mg 00 times Medical tablet daily. Branch magnesium 2011-0 Yes 400mg Take 1 Tab U nivers oxide 8-18 by mouth 2 ity of (MAG-OX 00:00: (two) [place] 400) 400 mg 00 times Medical tablet daily. Branch magnesium 2011-0 Yes 400mg Take 1 Tab U nivers oxide 8-18 by mouth 2 ity of (MAG-OX 00:00: (two) [place] 400) 400 mg 00 times Medical tablet daily. Branch magnesium 2011-0 Yes 400mg Take 1 Tab U nivers oxide 8-18 by mouth 2 ity of (MAG-OX 00:00: (two) [place] 400) 400 mg 00 times Medical tablet daily. Branch magnesium 2010-0 Yes 400mg Take 1 Tab U nivers oxide 8-18 by mouth 2 ity of (MAG-OX 00:00: (two) [place] 400) 400 mg 00 times Medical tablet daily. Branch magnesium 2011-0 Yes 400mg Take 1 Tab U nivers oxide 8-18 by mouth 2 ity of (MAG-OX 00:00: ([facility]) [place] 400) 400 mg 00 times Medical tablet daily. Branch magnesium 2010-0 Yes 400mg Take 1 Tab U nivers oxide 8-18 by mouth 2 ity of (MAG-OX 00:00: ([facility]) [place] 400) 400 mg 00 times Medical tablet daily. Branch magnesium 2010-0 Yes 400mg Take 1 Tab U nivers oxide 8-18 by mouth 2 ity of (MAG-OX 00:00: ([facility]) [place] 400) 400 mg 00 times Medical tablet daily. Branch magnesium 2011-0 Yes 400mg Take 1 Tab U nivers oxide 8-18 by mouth 2 ity of (MAG-OX 00:00: ([facility]) [place] 400) 400 mg 00 times Medical tablet daily. Branch magnesium 2011-0 Yes 400mg Take 1 Tab U nivers oxide 8-18 by mouth 2 ity of (MAG-OX 00:00: ([facility]) [place] 400) 400 mg 00 times Medical tablet daily. Branch magnesium 2011-0 Yes 400mg Take 1 Tab U nivers oxide 8-18 by mouth 2 ity of (MAG-OX 00:00: ([facility]) [place] 400) 400 mg 00 times Medical tablet daily. Branch magnesium 2011-0 Yes 400mg Take 1 Tab U nivers oxide 8-18 by mouth 2 ity of (MAG-OX 00:00: ([facility]) [place] 400) 400 mg 00 times Medical tablet daily. Branch magnesium 2011-0 Yes 400mg Take 1 Tab U nivers oxide 8-18 by mouth 2 ity of (MAG-OX 00:00: (two) [place] 400) 400 mg 00 times Medical tablet daily. Branch magnesium 2011-0 Yes 400mg Take 1 Tab U nivers oxide 8-18 by mouth 2 ity of (MAG-OX 00:00: (two) [place] 400) 400 mg 00 times Medical tablet daily. Branch magnesium 2011-0 Yes 400mg Take 1 Tab U nivers oxide 8-18 by mouth 2 ity of (MAG-OX 00:00: (two) [place] 400) 400 mg 00 times Medical tablet daily. Branch magnesium 2010-0 Yes 400mg Take 1 Tab U nivers oxide 8-18 by mouth 2 ity of (MAG-OX 00:00: (two) [place] 400) 400 mg 00 times Medical tablet daily. Branch magnesium 2011-0 Yes 400mg Take 1 Tab U nivers oxide 8-18 by mouth 2 ity of (MAG-OX 00:00: (two) [place] 400) 400 mg 00 times Medical tablet daily. Branch magnesium 2010-0 Yes 400mg Take 1 Tab U nivers oxide 8-18 by mouth 2 ity of (MAG-OX 00:00: ([facility]) [place] 400) 400 mg 00 times Medical tablet daily. Branch magnesium 2010-0 Yes 400mg Take 1 Tab U nivers oxide 8-18 by mouth 2 ity of (MAG-OX 00:00: (two) [place] 400) 400 mg 00 times Medical tablet daily. Branch magnesium 2011-0 Yes 400mg Take 1 Tab U nivers oxide 8-18 by mouth 2 ity of (MAG-OX 00:00: (two) [place] 400) 400 mg 00 times Medical tablet daily. Branch magnesium 2011-0 Yes 400mg Take 1 Tab U nivers oxide 8-18 by mouth 2 ity of (MAG-OX 00:00: (two) [place] 400) 400 mg 00 times Medical tablet daily. Branch magnesium 2011-0 Yes 400mg Take 1 Tab U nivers oxide 8-18 by mouth 2 ity of (MAG-OX 00:00: (two) [place] 400) 400 mg 00 times Medical tablet daily. Branch magnesium 2011-0 Yes 400mg Take 1 Tab U nivers oxide 8-18 by mouth 2 ity of (MAG-OX 00:00: (two) [place] 400) 400 mg 00 times Medical tablet daily. Branch magnesium 2011-0 Yes 400mg Take 1 Tab U nivers oxide 8-18 by mouth 2 ity of (MAG-OX 00:00: (two) [place] 400) 400 mg 00 times Medical tablet daily. Branch magnesium 2010- Yes 400mg Take 1 Tab U nivers oxide 8-18 by mouth 2 ity of (MAG-OX 00:00: (two) [place] 400) 400 mg 00 times Medical tablet daily. Branch magnesium Yes 400mg Take 1 Tab U nivers oxide 8-18 by mouth 2 ity of (MAG-OX 00:00: (two) [place] 400) 400 mg 00 times Medical tablet daily. Branch magnesium 2010- Yes 400mg Take 1 Tab U nivers oxide 8-18 by mouth 2 ity of (MAG-OX 00:00: (two) [place] 400) 400 mg 00 times Medical tablet daily. Branch magnesium 2010- Yes 400mg Take 1 Tab U nivers oxide 8-18 by mouth 2 ity of (MAG-OX 00:00: (two) [place] 400) 400 mg 00 times Medical tablet daily. Branch magnesium Yes 400mg Take 1 Tab U nivers oxide 8-18 by mouth 2 ity of (MAG-OX 00:00: (two) [place] 400) 400 mg 00 times Medical tablet daily. [place] aspirin 325 2009-0 Yes 325mg Take 1 Tab [facility] mg tablet 8-24 by mouth ity of 00:00: daily. [facility] aspirin 325 2009-0 Yes 325mg Take 1 Tab [facility] mg tablet 8-24 by mouth ity of 00:00: daily. [facility] aspirin 325 2009-0 Yes 325mg Take 1 Tab [facility] mg tablet 8-24 by mouth ity of 00:00: daily. [facility] aspirin 325 2009-0 Yes 325mg Take 1 Tab [facility] mg tablet 8-24 by mouth ity of 00:00: daily. [facility] aspirin 325 2009-0 Yes 325mg Take 1 Tab [facility] mg tablet 8-24 by mouth ity of 00:00: daily. [facility] aspirin 325 2009-0 Yes 325mg Take 1 Tab [facility] mg tablet 8-24 by mouth ity of 00:00: daily. [facility] aspirin 325 2009-0 Yes 325mg Take 1 Tab [facility] mg tablet 8-24 by mouth ity of 00:00: daily. [facility] aspirin 325 2009-0 Yes 325mg Take 1 Tab [facility] mg tablet 8-24 by mouth ity of 00:00: daily. [facility] aspirin 325 2009-0 Yes 325mg Take 1 Tab [facility] mg tablet 8-24 by mouth ity of 00:00: daily. [facility] aspirin 325 2009-0 Yes 325mg Take 1 Tab [facility] mg tablet 8-24 by mouth ity of 00:00: daily. [facility] aspirin 325 2009-0 Yes 325mg Take 1 Tab [facility] mg tablet 8-24 by mouth ity of 00:00: daily. [facility] aspirin 325 2009-0 Yes 325mg Take 1 Tab [facility] mg tablet 8-24 by mouth ity of 00:00: daily. [facility] aspirin 325 2009-0 Yes 325mg Take 1 Tab [facility] mg tablet 8-24 by mouth ity of 00:00: daily. [facility] aspirin 325 2009-0 Yes 325mg Take 1 Tab [facility] mg tablet 8-24 by mouth ity of 00:00: daily. [facility] aspirin 325 2009-0 Yes 325mg Take 1 Tab [facility] mg tablet 8-24 by mouth ity of 00:00: daily. [facility] aspirin 325 2009-0 Yes 325mg Take 1 Tab [facility] mg tablet 8-24 by mouth ity of 00:00: daily. [facility] aspirin 325 2009-0 Yes 325mg Take 1 Tab [facility] mg tablet 8-24 by mouth ity of 00:00: daily. [facility] aspirin 325 2009-0 Yes 325mg Take 1 Tab [facility] mg tablet 8-24 by mouth ity of 00:00: daily. [facility] aspirin 325 2009-0 Yes 325mg Take 1 Tab [facility] mg tablet 8-24 by mouth ity of 00:00: daily. [facility] aspirin 325 2009-0 Yes 325mg Take 1 Tab [facility] mg tablet 8-24 by mouth ity of 00:00: daily. [facility] aspirin 325 2009-0 Yes 325mg Take 1 Tab [facility] mg tablet 8-24 by mouth ity of 00:00: daily. [facility] aspirin 325 2009-0 Yes 325mg Take 1 Tab [facility] mg tablet 8-24 by mouth ity of 00:00: daily. [facility] aspirin 325 2009-0 Yes 325mg Take 1 Tab [facility] mg tablet 8-24 by mouth ity of 00:00: daily. [facility] aspirin 325 2009-0 Yes 325mg Take 1 Tab [facility] mg tablet 8-24 by mouth ity of 00:00: daily. [facility] aspirin 325 2009-0 Yes 325mg Take 1 Tab [facility] mg tablet 8-24 by mouth ity of 00:00: daily. [facility] aspirin 325 2009-0 Yes 325mg Take 1 Tab [facility] mg tablet 8-24 by mouth ity of 00:00: daily. [facility] aspirin 325 2009-0 Yes 325mg Take 1 Tab [facility] mg tablet 8-24 by mouth ity of 00:00: daily. [facility] aspirin 325 2009-0 Yes 325mg Take 1 Tab [facility] mg tablet 8-24 by mouth ity of 00:00: daily. [facility] aspirin 325 2009-0 Yes 325mg Take 1 Tab [facility] mg tablet 8-24 by mouth ity of 00:00: daily. [facility] aspirin 325 2009-0 Yes 325mg Take 1 Tab [facility] mg tablet 8-24 by mouth ity of 00:00: daily. [facility] aspirin 325 2009-0 Yes 325mg Take 1 Tab [facility] mg tablet 8-24 by mouth ity of 00:00: daily. [facility] aspirin 325 2009-0 Yes 325mg Take 1 Tab [facility] mg tablet 8-24 by mouth ity of 00:00: daily. [facility] aspirin 325 2009-0 Yes 325mg Take 1 Tab [facility] mg tablet 8-24 by mouth ity of 00:00: daily. [facility] aspirin 325 2009-0 Yes 325mg Take 1 Tab [facility] mg tablet 8-24 by mouth ity of 00:00: daily. [facility] aspirin 325 2009-0 Yes 325mg Take 1 Tab [facility] mg tablet 8-24 by mouth ity of 00:00: daily. [facility] aspirin 325 2009-0 Yes 325mg Take 1 Tab [facility] mg tablet 8-24 by mouth ity of 00:00: daily. [facility] aspirin 325 2009-0 Yes 325mg Take 1 Tab [facility] mg tablet 8-24 by mouth ity of 00:00: daily. [facility] aspirin 325 2009-0 Yes 325mg Take 1 [facility] mg tablet 8-24 by mouth ity of 00:00: daily. [facility] aspirin 325 2009-0 Yes 325mg Take 1 [facility] mg tablet 8-24 by mouth ity of 00:00: daily. [facility] aspirin 325 2009-0 Yes 325mg Take 1 [facility] mg tablet 8-24 by mouth ity of 00:00: daily. [facility] aspirin 325 2009-0 Yes 325mg Take 1 [facility] mg tablet 8-24 by mouth ity of 00:00: daily. [facility] aspirin 325 2009-0 Yes 325mg Take 1 [facility] mg tablet 8-24 by mouth ity of 00:00: daily. [facility] aspirin 325 2009-0 Yes 325mg Take 1 [facility] mg tablet 8-24 by mouth ity of 00:00: daily. [facility] aspirin 325 2009-0 Yes 325mg Take 1 [facility] mg tablet 8-24 by mouth ity of 00:00: daily. [facility] aspirin 325 2009-0 Yes 325mg Take 1 [facility] mg tablet 8-24 by mouth ity of 00:00: daily. [facility] aspirin 325 2009-0 Yes 325mg Take 1 [facility] mg tablet 8-24 by mouth ity of 00:00: daily. [facility] aspirin 325 2009-0 Yes 325mg Take 1 [facility] mg tablet 8-24 by mouth ity of 00:00: daily. [facility] aspirin 325 2009-0 Yes 325mg Take 1 [facility] mg tablet 8-24 by mouth ity of 00:00: daily. [facility] aspirin 325 2009-0 Yes 325mg Take 1 [facility] mg tablet 8-24 by mouth ity of 00:00: daily. [facility] aspirin 325 2009-0 Yes 325mg Take 1 [facility] mg tablet 8-24 by mouth ity of 00:00: daily. [facility] aspirin 325 2009-0 Yes 325mg Take 1 [facility] mg tablet 8-24 by mouth ity of 00:00: daily. [facility] aspirin 325 2009-0 Yes 325mg Take 1 [facility] mg tablet 8-24 by mouth ity of 00:00: daily. [facility] aspirin 325 2009-0 Yes 325mg Take 1 [facility] mg tablet 8-24 by mouth ity of 00:00: daily. [facility] aspirin 325 2009-0 Yes 325mg Take 1 [facility] mg tablet 8-24 by mouth ity of 00:00: daily. [facility] aspirin 325 2009-0 Yes 325mg Take 1 [facility] mg tablet 8-24 by mouth ity of 00:00: daily. [place] [address] [facility] aspirin 325 2009-0 Yes 325mg Take 1 [facility] mg tablet 8-24 by mouth ity of 00:00: daily. [place] [address] [facility] aspirin 325 2009- Yes 325mg Take 1 [facility] mg tablet 8-24 by mouth ity of 00:00: daily. [place] [address] [facility] aspirin 325 2009- Yes 325mg Take 1 [facility] mg tablet 8-24 by mouth ity of 00:00: daily. [place] [address] [facility] Immunizations Ordered Filled Immunization Date Status Comments [facility] e Immunization Name Name Influenza Virus 2022-04-01 Completed [facility] Vaccine,quad 00:00:00 [facility]+ Influenza Virus 2022-04-01 Completed [facility] Vaccine,quad 00:00:00 [place] [facility] 65+ Influenza Virus 2022-04-01 Completed [facility] Vaccine,quad 00:00:00 [place] [facility] 65+ Influenza Virus 2022-04-01 Completed [facility] Vaccine,quad 00:00:00 [place] [facility] 65+ Influenza Virus 2022-04-01 Completed [facility] Vaccine,quad 00:00:00 [place] [facility] 65+ Influenza Virus 2022-04-01 Completed [facility] Vaccine,quad 00:00:00 [place] [facility] 65+ Influenza Virus 2022-04-01 Completed [facility] Vaccine,quad 00:00:00 [place] [facility] 65+ Influenza Virus 2022-04-01 Completed [facility] Vaccine,quad 00:00:00 [place] [facility] 65+ Influenza Virus 2022-04-01 Completed [facility] of Vaccine,quad 00:00:00 [place] [facility] 65+ Influenza Virus 2022-04-01 Completed [facility] Vaccine,quad 00:00:00 [place] [facility] 65+ Influenza Virus 2022-04-01 Completed [facility] of Vaccine,quad 00:00:00 [place] [facility] 65+ Influenza Virus 2022-04-01 Completed [facility] of Vaccine,quad 00:00:00 [place] [facility] 65+ Influenza Virus 2022-04-01 Completed [facility] of Vaccine,quad 00:00:00 [place] [facility] 65+ Influenza Virus 2022-04-01 Completed [facility] of Vaccine,quad 00:00:00 [place] [facility] 65+ Influenza Virus 2022-04-01 Completed [facility] of Vaccine,quad 00:00:00 [place] [facility] 65+ Influenza Virus 2022-04-01 Completed [facility] of Vaccine,quad 00:00:00 [place] [facility] 65+ Influenza Virus 2022-04-01 Completed [facility] of Vaccine,quad 00:00:00 [place] [facility] 65+ Influenza Virus 2022-04-01 Completed [facility] of Vaccine,quad 00:00:00 [place] [facility] 65+ Influenza Virus 2022-04-01 Completed [facility] of Vaccine,quad 00:00:00 [place] [facility] 65+ Influenza Virus 2022-04-01 Completed [facility] of Vaccine,quad 00:00:00 [place] [facility] 65+ Influenza Virus 2022-04-01 Completed [facility] of Vaccine,quad 00:00:00 [place] [facility] 65+ Influenza Virus 2022-04-01 Completed [facility] of Vaccine,quad 00:00:00 [place] [facility] 65+ Influenza Virus 2022-04-01 Completed [facility] of Vaccine,quad 00:00:00 [place] [facility] 65+ Influenza Virus 2022-04-01 Completed [facility] of Vaccine,quad 00:00:00 [place] [facility] 65+ Influenza Virus 2022-04-01 Completed [facility] of Vaccine,quad 00:00:00 [place] [facility] 65+ Influenza Virus 2022-04-01 Completed [facility] of Vaccine,quad 00:00:00 [place] [facility] 65+ Influenza Virus 2022-04-01 Completed [facility] of Vaccine,quad 00:00:00 [place] [facility] 65+ Influenza Virus 2022-04-01 Completed [facility] of Vaccine,quad 00:00:00 [place] [facility] 65+ Influenza Virus 2022-04-01 Completed [facility] of Vaccine,quad 00:00:00 [place] [facility] 65+ Influenza Virus 2022-04-01 Completed [facility] of Vaccine,quad 00:00:00 [place] [facility] 65+ Influenza Virus 2022-04-01 Completed [facility] of Vaccine,quad 00:00:00 [place] [facility] 65+ SARS-COV-2 COVID-19 2022-02-04 Completed Unive rsity of VACCINE 18 YRS+, 00:00:00 [place] [facility] BIVALENT 0.5ML, IM, Branc h (MODERNA BOOSTER) SARS-COV-2 COVID-19 2022-02-04 Completed Unive rsity of VACCINE 18 YRS+, 00:00:00 [place] [facility] BIVALENT 0.5ML, IM, Branc h (MODERNA BOOSTER) SARS-COV-2 COVID-19 2022-02-04 Completed Unive rsity of VACCINE 18 YRS+, 00:00:00 [place] [facility] BIVALENT 0.5ML, IM, Branc h (MODERNA BOOSTER) SARS-COV-2 COVID-19 2022-02-04 Completed Unive rsity of VACCINE 18 YRS+, 00:00:00 [place] [facility] BIVALENT 0.5ML, IM, Branc h (MODERNA BOOSTER) SARS-COV-2 COVID-19 2022-02-04 Completed Unive rsity of VACCINE 12 YRS+, 00:00:00 [place] [facility] BIVALENT 0.5ML, IM, Branc h (MODERNA BOOSTER) SARS-COV-2 COVID-19 2022-02-04 Completed Unive rsity of VACCINE 12 YRS+, 00:00:00 [place] [facility] BIVALENT 0.5ML, IM, Branc h (MODERNA BOOSTER) SARS-COV-2 COVID-19 2022-02-04 Completed Unive rsity of VACCINE 12 YRS+, 00:00:00 [place] [facility] BIVALENT 0.5ML, IM, Branc h (MODERNA BOOSTER) SARS-COV-2 COVID-19 2022-02-04 Completed Unive rsity of VACCINE 12 YRS+, 00:00:00 [place] [facility] BIVALENT 0.5ML, IM, Branc h (MODERNA BOOSTER) SARS-COV-2 COVID-19 2022-02-04 Completed Unive rsity of VACCINE 12 YRS+, 00:00:00 [place] [facility] BIVALENT 0.5ML, IM, Branc h (MODERNA BOOSTER) SARS-COV-2 COVID-19 2022-02-04 Completed Unive rsity of VACCINE 12 YRS+, 00:00:00 [place] [facility] BIVALENT 0.5ML, IM, Branc h (MODERNA BOOSTER) SARS-COV-2 COVID-19 2022-02-04 Completed Unive rsity of VACCINE 12 YRS+, 00:00:00 [place] [facility] BIVALENT 0.5ML, IM, Branc h (MODERNA BOOSTER) SARS-COV-2 COVID-19 2022-02-04 Completed Unive rsity of VACCINE 12 YRS+, 00:00:00 [place] [facility] BIVALENT 0.5ML, IM, Branc h (MODERNA BOOSTER) SARS-COV-2 COVID-19 2022-02-04 Completed Unive rsity of VACCINE 12 YRS+, 00:00:00 [place] [facility] BIVALENT 0.5ML, IM, Branc h (MODERNA BOOSTER) SARS-COV-2 COVID-19 2022-02-04 Completed Unive rsity of VACCINE 12 YRS+, 00:00:00 [place] [facility] BIVALENT 0.5ML, IM, Branc h (MODERNA BOOSTER) SARS-COV-2 COVID-19 2022-02-04 Completed Unive rsity of VACCINE 12 YRS+, 00:00:00 [place] [facility] BIVALENT 0.5ML, IM, Branc h (MODERNA BOOSTER) SARS-COV-2 COVID-19 2022-02-04 Completed Unive rsity of VACCINE 12 YRS+, 00:00:00 [place] [facility] BIVALENT 0.5ML, IM, Branc h (MODERNA BOOSTER) SARS-COV-2 COVID-19 2022-02-04 Completed Unive rsity of VACCINE 12 YRS+, 00:00:00 [place] [facility] BIVALENT 0.5ML, IM, Branc h (MODERNA BOOSTER) SARS-COV-2 COVID-19 2022-02-04 Completed Unive rsity of VACCINE 12 YRS+, 00:00:00 [place] [facility] BIVALENT 0.5ML, IM, Branc h (MODERNA BOOSTER) SARS-COV-2 COVID-19 2022-02-04 Completed Unive rsity of VACCINE 12 YRS+, 00:00:00 [place] [facility] BIVALENT 0.5ML, IM, Branc h (MODERNA BOOSTER) SARS-COV-2 COVID-19 2022-02-04 Completed Unive rsity of VACCINE 12 YRS+, 00:00:00 [place] [facility] BIVALENT 0.5ML, IM, Branc h (MODERNA BOOSTER) SARS-COV-2 COVID-19 2022-02-04 Completed Unive rsity of VACCINE 12 YRS+, 00:00:00 [place] [facility] BIVALENT 0.5ML, IM, Branc h (MODERNA BOOSTER) SARS-COV-2 COVID-19 2022-02-04 Completed Unive rsity of VACCINE 12 YRS+, 00:00:00 [place] [facility] BIVALENT 0.5ML, IM, Branc h (MODERNA BOOSTER) SARS-COV-2 COVID-19 2022-02-04 Completed Unive rsity of VACCINE 12 YRS+, 00:00:00 [place] [facility] BIVALENT 0.5ML, IM, Branc h (MODERNA BOOSTER) SARS-COV-2 COVID-19 2022-02-04 Completed Unive rsity of VACCINE 12 YRS+, 00:00:00 [place] [facility] BIVALENT 0.5ML, IM, Branc h (MODERNA BOOSTER) SARS-COV-2 COVID-19 2022-02-04 Completed Unive rsity of VACCINE 12 YRS+, 00:00:00 [place] [facility] BIVALENT 0.5ML, IM, Branc h (MODERNA BOOSTER) SARS-COV-2 COVID-19 2022-02-04 Completed Unive rsity of VACCINE 12 YRS+, 00:00:00 [place] [facility] BIVALENT 0.5ML, IM, Branc h (MODERNA BOOSTER) SARS-COV-2 COVID-19 2022-02-04 Completed Unive rsity of VACCINE 12 YRS+, 00:00:00 [place] [facility] BIVALENT 0.5ML, IM, Branc h (MODERNA BOOSTER) SARS-COV-2 COVID-19 2022-02-04 Completed Unive rsity of VACCINE 12 YRS+, 00:00:00 [place] [facility] BIVALENT 0.5ML, IM, Branc h (MODERNA BOOSTER) SARS-COV-2 COVID-19 2022-02-04 Completed Unive rsity of VACCINE 12 YRS+, 00:00:00 [place] [facility] BIVALENT 0.5ML, IM, Branc h (MODERNA BOOSTER) SARS-COV-2 COVID-19 2022-02-04 Completed Unive rsity of VACCINE 12 YRS+, 00:00:00 [place] [facility] BIVALENT 0.5ML, IM, Branc h (MODERNA BOOSTER) SARS-COV-2 COVID-19 2022-02-04 Completed Unive rsity of VACCINE 12 YRS+, 00:00:00 [place] [facility] BIVALENT 0.5ML, IM, Branc h (MODERNA BOOSTER) SARS-COV-2 COVID-19 2022-02-04 Completed Unive rsity of VACCINE 12 YRS+, 00:00:00 [place] [facility] BIVALENT 0.5ML, IM, Branc h (MODERNA BOOSTER) SARS-COV-2 COVID-19 2022-02-04 Completed Unive rsity of VACCINE 12 YRS+, 00:00:00 [place] [facility] BIVALENT 0.5ML, IM, Branc h (MODERNA BOOSTER) SARS-COV-2 COVID-19 2022-02-04 Completed Unive rsity of VACCINE 12 YRS+, 00:00:00 [place] [facility] BIVALENT 0.5ML, IM, Branc h (MODERNA BOOSTER) SARS-COV-2 COVID-19 2022-02-04 Completed Unive rsity of VACCINE 12 YRS+, 00:00:00 [place] [facility] BIVALENT 0.5ML, IM, Branc h (MODERNA BOOSTER) SARS-COV-2 COVID-19 2022-02-04 Completed Unive rsity of VACCINE 12 YRS+, 00:00:00 [place] [facility] BIVALENT 0.5ML, IM, Branc h (MODERNA BOOSTER) SARS-COV-2 COVID-19 2022-02-04 Completed Unive rsity of VACCINE 12 YRS+, 00:00:00 [place] [facility] BIVALENT 0.5ML, IM, Branc h (MODERNA BOOSTER) SARS-COV-2 COVID-19 2022-02-04 Completed Unive rsity of VACCINE 12 YRS+, 00:00:00 [place] [facility] BIVALENT 0.5ML, IM, Branc h (MODERNA BOOSTER) SARS-COV-2 COVID-19 2022-02-04 Completed Unive rsity of VACCINE 12 YRS+, 00:00:00 [place] [facility] BIVALENT 0.5ML, IM, Branc h (MODERNA BOOSTER) SARS-COV-2 COVID-19 2022-02-04 Completed Unive rsity of VACCINE 12 YRS+, 00:00:00 [place] [facility] BIVALENT 0.5ML, IM, Branc h (MODERNA BOOSTER) SARS-COV-2 COVID-19 2022-02-04 Completed Unive rsity of VACCINE 12 YRS+, 00:00:00 [place] [facility] BIVALENT 0.5ML, IM, Branc h (MODERNA BOOSTER) SARS-COV-2 COVID-19 2022-02-04 Completed Unive rsity of VACCINE 12 YRS+, 00:00:00 [place] [facility] BIVALENT 0.5ML, IM, Branc h (MODERNA BOOSTER) SARS-COV-2 COVID-19 2022-02-04 Completed Unive rsity of VACCINE 12 YRS+, 00:00:00 [place] [facility] BIVALENT 0.5ML, IM, Branc h (MODERNA BOOSTER) SARS-COV-2 COVID-19 2022-02-04 Completed Unive rsity of VACCINE 12 YRS+, 00:00:00 [place] [facility] BIVALENT 0.5ML, IM, Branc h (MODERNA BOOSTER) SARS-COV-2 COVID-19 2022-02-04 Completed Unive rsity of VACCINE 12 YRS+, 00:00:00 [place] [facility] BIVALENT 0.5ML, IM, Branc h (MODERNA BOOSTER) SARS-COV-2 COVID-19 2022-02-04 Completed Unive rsity of VACCINE 12 YRS+, 00:00:00 [place] [facility] BIVALENT 0.5ML, IM, Branc h (MODERNA BOOSTER) SARS-COV-2 COVID-19 2022-02-04 Completed [facility]ive rsity of VACCINE 12 YRS+, 00:00:00 [place] [facility] BIVALENT 0.5ML, IM, Branc h (MODERNA BOOSTER) SARS-COV-2 COVID-19 2021-09-03 Completed Unive rsity of MODERNA 0.25ML 00:00:00 [place] [facility] VACCINE Branch SARS-COV-2 COVID-19 2021-09-03 Completed Unive rsity of MODERNA 0.25ML 00:00:00 [place] [facility] BOOST[facility] VACCINE Branch SARS-COV-2 COVID-19 2021-09-03 Completed Unive rsity of MODERNA 0.25ML 00:00:00 [place] [facility] VACCINE Branch SARS-COV-2 COVID-19 2021-09-03 Completed Unive rsity of MODERNA 0.25ML 00:00:00 [place] [facility] VACCINE Branch SARS-COV-2 COVID-19 2021-09-03 Completed [facility]ive rsity of MODERNA 0.25ML 00:00:00 [place] [facility] VACCINE Branch SARS-COV-2 COVID-19 2021-09-03 Completed Unive rsity of MODERNA 0.25ML 00:00:00 [place] [facility]ER VACCINE Branch SARS-COV-2 COVID-19 2021-09-03 Completed Unive rsity of MODERNA 0.25ML 00:00:00 [place] [facility] VACCINE Branch SARS-COV-2 COVID-19 2021-09-03 Completed [facility]ive rsity of MODERNA 0.25ML 00:00:00 [place] [facility] VACCINE Branch SARS-COV-2 COVID-19 2021-09-03 Completed Unive rsity of MODERNA 0.25ML 00:00:00 [place] [facility] VACCINE Branch SARS-COV-2 COVID-19 2021-09-03 Completed Unive rsity of MODERNA 0.25ML 00:00:00 [place] [facility]ER VACCINE Branch SARS-COV-2 COVID-19 2021-09-03 Completed Unive rsity of MODERNA 0.25ML 00:00:00 [place] [facility] VACCINE Branch SARS-COV-2 COVID-19 2021-09-03 Completed Unive rsity of MODERNA 0.25ML 00:00:00 [place] [facility] BOOSTER VACCINE Branch SARS-COV-2 COVID-19 2021-09-03 Completed Unive rsity of MODERNA 0.25ML 00:00:00 [place] [facility]ER VACCINE Branch SARS-COV-2 COVID-19 2021-09-03 Completed Unive rsity of MODERNA 0.25ML 00:00:00 [place] [facility] VACCINE Branch SARS-COV-2 COVID-19 2021-09-03 Completed Unive rsity of MODERNA 0.25ML 00:00:00 [place] [facility]ER VACCINE Branch SARS-COV-2 COVID-19 2021-09-03 Completed Unive rsity of MODERNA 0.25ML 00:00:00 [place] [facility] BOOSTER VACCINE Branch SARS-COV-2 COVID-19 2021-09-03 Completed Unive rsity of MODERNA 0.25ML 00:00:00 [place] [facility] BOOST[facility] VACCINE Branch SARS-COV-2 COVID-19 2021-09-03 Completed Unive rsity of MODERNA 0.25ML 00:00:00 [place] [facility] VACCINE Branch SARS-COV-2 COVID-19 2021-09-03 Completed Unive rsity of MODERNA 0.25ML 00:00:00 [place] [facility] VACCINE Branch SARS-COV-2 COVID-19 2021-09-03 Completed [facility]ive rsity of MODERNA 0.25ML 00:00:00 [place] [facility] VACCINE Branch SARS-COV-2 COVID-19 2021-09-03 Completed [facility]ive rsity of MODERNA 0.25ML 00:00:00 [place] [facility] VACCINE Branch SARS-COV-2 COVID-19 2021-09-03 Completed [facility]ive rsity of MODERNA 0.25ML 00:00:00 [place] [facility] VACCINE Branch SARS-COV-2 COVID-19 2021-09-03 Completed [facility]ive rsity of MODERNA 0.25ML 00:00:00 [place] [facility] VACCINE Branch SARS-COV-2 COVID-19 2021-09-03 Completed [facility]ive rs[facility] of MODERNA 0.25ML 00:00:00 [place] [facility] VACCINE Branch SARS-COV-2 COVID-19 2021-09-03 Completed [facility]ive rsity of MODERNA 0.25ML 00:00:00 [place] [facility] VACCINE Branch SARS-COV-2 COVID-19 2021-09-03 Completed [facility]ive rs[facility] of MODERNA 0.25ML 00:00:00 [place] [facility] VACCINE Branch SARS-COV-2 COVID-19 2021-09-03 Completed [facility]ive rsity of MODERNA 0.25ML 00:00:00 [place] [facility] VACCINE Branch SARS-COV-2 COVID-19 2021-09-03 Completed [facility]ive rsity of MODERNA 0.25ML 00:00:00 [place] [facility] VACCINE Branch SARS-COV-2 COVID-19 2021-09-03 Completed [facility]ive rsity of MODERNA 0.25ML 00:00:00 [place] [facility] VACCINE Branch SARS-COV-2 COVID-19 2021-09-03 Completed [facility] rsity of MODERNA 0.25ML 00:00:00 [place] [facility] VACCINE Branch SARS-COV-2 COVID-19 2021-09-03 Completed [facility] rs[facility] of MODERNA 0.25ML 00:00:00 [place] [facility] VACCINE Branch SARS-COV-2 COVID-19 2021-09-03 Completed [facility] rsity of MODERNA 0.25ML 00:00:00 [place] [facility] VACCINE Branch SARS-COV-2 COVID-19 2021-09-03 Completed [facility]ive rsity of MODERNA 0.25ML 00:00:00 [place] [facility] VACCINE Branch SARS-COV-2 COVID-19 2021-09-03 Completed [facility]ive rsity of MODERNA 0.25ML 00:00:00 [place] [facility] VACCINE Branch SARS-COV-2 COVID-19 2021-09-03 Completed [facility] rsity of MODERNA 0.25ML 00:00:00 [place] [facility] VACCINE Branch SARS-COV-2 COVID-19 2021-09-03 Completed [facility]ive rsity of MODERNA 0.25ML 00:00:00 [place] [facility] VACCINE Branch SARS-COV-2 COVID-19 2021-09-03 Completed [facility]ive rsity of MODERNA 0.25ML 00:00:00 [place] [facility] VACCINE Branch SARS-COV-2 COVID-19 2021-09-03 Completed [facility]ive rsity of MODERNA 0.25ML 00:00:00 [place] [facility] VACCINE Branch SARS-COV-2 COVID-19 2021-09-03 Completed [facility]ive rsity of MODERNA 0.25ML 00:00:00 [place] [facility] VACCINE Branch SARS-COV-2 COVID-19 2021-09-03 Completed [facility]ive rsity of MODERNA 0.25ML 00:00:00 [place] [facility] VACCINE Branch SARS-COV-2 COVID-19 2021-09-03 Completed [facility]ive rsity of MODERNA 0.25ML 00:00:00 [place] [facility] VACCINE Branch SARS-COV-2 COVID-19 2021-09-03 Completed [facility] rs[facility] of MODERNA 0.25ML 00:00:00 [place] [facility] VACCINE Branch SARS-COV-2 COVID-19 2021-09-03 Completed [facility] rs[facility] of MODERNA 0.25ML 00:00:00 [place] [facility] VACCINE Branch SARS-COV-2 COVID-19 2021-09-03 Completed [facility] rs[facility] of MODERNA 0.25ML 00:00:00 [place] [facility] VACCINE Branch SARS-COV-2 COVID-19 2021-09-03 Completed [facility] rsity of MODERNA 0.25ML 00:00:00 [place] [facility] VACCINE Branch SARS-COV-2 COVID-19 2021-09-03 Completed [facility] rs[facility] of MODERNA 0.25ML 00:00:00 [place] [facility] VACCINE Branch SARS-COV-2 COVID-19 2021-09-03 Completed [facility] rsity of MODERNA 0.25ML 00:00:00 [place] [facility] VACCINE Branch SARS-COV-2 COVID-19 2021-09-03 Completed [facility] rs[facility] of MODERNA 0.25ML 00:00:00 [place] [facility] VACCINE Branch SARS-COV-2 COVID-19 2021-09-03 Completed [facility] rs[facility] of MODERNA 0.25ML 00:00:00 [place] [facility] VACCINE Branch SARS-COV-2 COVID-19 2021-09-03 Completed [facility] rsity of MODERNA 0.25ML 00:00:00 [place] [facility] VACCINE Branch SARS-COV-2 COVID-19 2021-09-03 Completed [facility]ive rsity of MODERNA 0.25ML 00:00:00 [place] [facility] VACCINE Branch SARS-COV-2 COVID-19 2021-09-03 Completed [facility]ive rsity of MODERNA 0.25ML 00:00:00 [place] [facility] VACCINE Branch SARS-COV-2 COVID-19 2021-09-03 Completed [facility]ive rsity of MODERNA 0.25ML 00:00:00 [place] [facility] VACCINE Branch SARS-COV-2 COVID-19 2021-09-03 Completed [facility]ive rsity of MODERNA 0.25ML 00:00:00 [place] [facility] VACCINE Branch SARS-COV-2 COVID-19 2021-09-03 Completed [facility]ive rsity of MODERNA 0.25ML 00:00:00 [place] [facility] VACCINE Branch SARS-COV-2 COVID-19 2021-09-03 Completed [facility] rsity of MODERNA 0.25ML 00:00:00 [place] [facility] VACCINE Branch SARS-COV-2 COVID-19 2021-09-03 Completed [facility] rsity of MODERNA 0.25ML 00:00:00 [place] [facility] VACCINE Branch SARS-COV-2 COVID-19 2021-09-03 Completed [facility] rsity of MODERNA 0.25ML 00:00:00 [place] [facility] VACCINE Branch Pneumococcal 13 2021-05-07 Completed [facility] of Conjugate, PCV13 00:00:00 [place] [facility] (Prevnar 13) Branch Pneumococcal 13 2021-05-07 Completed [facility] of Conjugate, PCV13 00:00:00 [place] [facility] (Prevnar 13) Branch Pneumococcal 13 2021-05-07 Completed [facility] of Conjugate, PCV13 00:00:00 [place] [facility] (Prevnar 13) Branch Pneumococcal 13 2021-05-07 Completed [facility] of Conjugate, PCV13 00:00:00 [place] [facility] (Prevnar 13) Branch Pneumococcal 13 2021-05-07 Completed [facility] of Conjugate, PCV13 00:00:00 [place] [facility] (Prevnar 13) Branch Pneumococcal 13 2021-05-07 Completed [facility] of Conjugate, PCV13 00:00:00 [place] [facility] (Prevnar 13) Branch Pneumococcal 13 2021-05-07 Completed [facility] of Conjugate, PCV13 00:00:00 [place] [facility] (Prevnar 13) Branch Pneumococcal 13 2021-05-07 Completed [facility] of Conjugate, PCV13 00:00:00 [place] [facility] (Prevnar 13) Branch Pneumococcal 13 2021-05-07 Completed [facility] of Conjugate, PCV13 00:00:00 [place] [facility] (Prevnar 13) Branch Pneumococcal 13 2021-05-07 Completed [facility] of Conjugate, PCV13 00:00:00 [place] [facility] (Prevnar 13) Branch Pneumococcal 13 2021-05-07 Completed [facility] of Conjugate, PCV13 00:00:00 [place] [facility] (Prevnar 13) Branch Pneumococcal 13 2021-05-07 Completed [facility] of Conjugate, PCV13 00:00:00 [place] [facility] (Prevnar 13) Branch Pneumococcal 13 2021-05-07 Completed [facility] of Conjugate, PCV13 00:00:00 [place] [facility] (Prevnar 13) Branch Pneumococcal 13 2021-05-07 Completed [facility] of Conjugate, PCV13 00:00:00 [place] [facility] (Prevnar 13) Branch Pneumococcal 13 2021-05-07 Completed [facility] of Conjugate, PCV13 00:00:00 [place] [facility] (Prevnar 13) Branch Pneumococcal 13 2021-05-07 Completed [facility] of Conjugate, PCV13 00:00:00 [place] [facility] (Prevnar 13) Branch Pneumococcal 13 2021-05-07 Completed [facility] of Conjugate, PCV13 00:00:00 [place] [facility] (Prevnar 13) Branch Pneumococcal 13 2021-05-07 Completed [facility] of Conjugate, PCV13 00:00:00 [place] [facility] (Prevnar 13) Branch Pneumococcal 13 2021-05-07 Completed [facility] of Conjugate, PCV13 00:00:00 [place] [facility] (Prevnar 13) Branch Pneumococcal 13 2021-05-07 Completed [facility] of Conjugate, PCV13 00:00:00 [place] [facility] (Prevnar 13) Branch Pneumococcal 13 2021-05-07 Completed [facility] of Conjugate, PCV13 00:00:00 [place] [facility] (Prevnar 13) Branch Pneumococcal 13 2021-05-07 Completed [facility] of Conjugate, PCV13 00:00:00 [place] [facility] (Prevnar 13) Branch Pneumococcal 13 2021-05-07 Completed [facility] of Conjugate, PCV13 00:00:00 [place] [facility] (Prevnar 13) Branch Pneumococcal 13 2021-05-07 Completed [facility] of Conjugate, PCV13 00:00:00 [place] [facility] (Prevnar 13) Branch Pneumococcal 13 2021-05-07 Completed [facility] of Conjugate, PCV13 00:00:00 [place] [facility] (Prevnar 13) Branch Pneumococcal 13 2021-05-07 Completed [facility] Conjugate, PCV13 00:00:00 [place] [facility] (Prevnar 13) Branch Pneumococcal 13 2021-05-07 Completed [facility] Conjugate, PCV13 00:00:00 [place] [facility] (Prevnar 13) [facility] Pneumococcal 13 2021-05-07 Completed [facility] Conjugate, PCV13 00:00:00 [place] [facility] (Prevnar 13) [facility] Pneumococcal 13 2021-05-07 Completed [facility] Conjugate, PCV13 00:00:00 [place] [facility] (Prevnar 13) [facility] Pneumococcal 13 2021-05-07 Completed [facility] Conjugate, PCV13 00:00:00 [place] [facility] (Prevnar 13) [facility] Pneumococcal 13 2021-05-07 Completed [facility] Conjugate, PCV13 00:00:00 [place] [facility] (Prevnar 13) Branch Pneumococcal 13 2021-05-07 Completed [facility] Conjugate, PCV13 00:00:00 [place] [facility] (Prevnar 13) Branch Pneumococcal 13 2021-05-07 Completed [facility] Conjugate, PCV13 00:00:00 [place] [facility] (Prevnar 13) [facility] Pneumococcal 13 2021-05-07 Completed [facility] Conjugate, PCV13 00:00:00 [place] [facility] (Prevnar 13) [facility] Pneumococcal 13 2021-05-07 Completed [facility] Conjugate, PCV13 00:00:00 [facility] (Prevnar 13) [facility] Pneumococcal 13 2021-05-07 Completed [facility] Conjugate, PCV13 00:00:00 [facility] (Prevnar 13) [facility] Pneumococcal 13 2021-05-07 Completed [facility] Conjugate, PCV13 00:00:00 [facility] (Prevnar 13) [facility] Pneumococcal 13 2021-05-07 Completed [facility] Conjugate, PCV13 00:00:00 [facility] (Prevnar 13) [facility] Pneumococcal 13 2021-05-07 Completed [facility] Conjugate, PCV13 00:00:00 [facility] (Prevnar 13) [facility] Pneumococcal 13 2021-05-07 Completed [facility] Conjugate, PCV13 00:00:00 [facility] (Prevnar 13) [facility] Pneumococcal 13 2021-05-07 Completed [facility] Conjugate, PCV13 00:00:00 [facility] (Prevnar 13) [facility] Pneumococcal 13 2021-05-07 Completed [facility] Conjugate, PCV13 00:00:00 [facility] (Prevnar 13) [facility] Pneumococcal 13 2021-05-07 Completed [facility] Conjugate, PCV13 00:00:00 [facility] (Prevnar 13) [facility] Pneumococcal 13 2021-05-07 Completed [facility] Conjugate, PCV13 00:00:00 [facility] (Prevnar 13) [facility] Pneumococcal 13 2021-05-07 Completed [facility] Conjugate, PCV13 00:00:00 [facility] (Prevnar 13) [facility] Pneumococcal 13 2021-05-07 Completed [facility] Conjugate, PCV13 00:00:00 [facility] (Prevnar 13) [facility] Pneumococcal 13 2021-05-07 Completed [facility] Conjugate, PCV13 00:00:00 [facility] (Prevnar 13) [facility] Pneumococcal 13 2021-05-07 Completed [facility] Conjugate, PCV13 00:00:00 [facility] (Prevnar 13) [facility] Pneumococcal 13 2021-05-07 Completed [facility] Conjugate, PCV13 00:00:00 [facility] (Prevnar 13) [facility] Pneumococcal 13 2021-05-07 Completed [facility] Conjugate, PCV13 00:00:00 [facility] (Prevnar 13) [facility] Pneumococcal 13 2021-05-07 Completed [facility] Conjugate, PCV13 00:00:00 [facility] (Prevnar 13) [facility] Pneumococcal 13 2021-05-07 Completed [facility] Conjugate, PCV13 00:00:00 [facility] (Prevnar 13) [facility] Pneumococcal 13 2021-05-07 Completed [facility] Conjugate, PCV13 00:00:00 [facility] (Prevnar 13) [facility] Pneumococcal 13 2021-05-07 Completed [facility] Conjugate, PCV13 00:00:00 [facility] (Prevnar 13) [facility] Pneumococcal 13 2021-05-07 Completed [facility] Conjugate, PCV13 00:00:00 [facility] (Prevnar 13) [facility] Pneumococcal 13 2021-05-07 Completed [facility] Conjugate, PCV13 00:00:00 [place] [facility] (Prevnar 13) [facility] Pneumococcal 13 2021-05-07 Completed [facility] Conjugate, PCV13 00:00:00 [facility] dical (Prevnar 13) Branch Pneumococcal 13 2021-05-07 Completed [facility] Conjugate, PCV13 00:00:00 [facility] dical (Prevnar 13) Branch Influenza Virus 2021-03-29 Completed [facility] Vaccine,quad 00:00:00 [facility] 65+ Influenza Virus 2021-03-29 Completed [facility] Vaccine,quad 00:00:00 [facility] 65+ Influenza Virus 2021-03-29 Completed [facility] Vaccine,quad 00:00:00 [facility] 65+ Influenza Virus 2021-03-29 Completed [facility] Vaccine,quad 00:00:00 [place] [facility] 65+ Influenza Virus 2021-03-29 Completed [facility] Vaccine,quad 00:00:00 [place] [facility] 65+ Influenza Virus 2021-03-29 Completed [facility] Vaccine,quad 00:00:00 [place] [facility] 65+ Influenza Virus 2021-03-29 Completed [facility] Vaccine,quad 00:00:00 [place] [facility] 65+ Influenza Virus 2021-03-29 Completed [facility] Vaccine,quad 00:00:00 [facility] 65+ Influenza Virus 2021-03-29 Completed [facility] Vaccine,quad 00:00:00 [facility] 65+ Influenza Virus 2021-03-29 Completed [facility] Vaccine,quad 00:00:00 [facility] 65+ Influenza Virus 2021-03-29 Completed [facility] Vaccine,quad 00:00:00 [facility] 65+ Influenza Virus 2021-03-29 Completed [facility] Vaccine,quad 00:00:00 [facility] 65+ Influenza Virus 2021-03-29 Completed [facility] Vaccine,quad 00:00:00 [facility] 65+ Influenza Virus 2021-03-29 Completed [facility] Vaccine,quad 00:00:00 [place] [facility] 65+ Influenza Virus 2021-03-29 Completed [facility] Vaccine,quad 00:00:00 [facility] 65+ Influenza Virus 2021-03-29 Completed [facility] Vaccine,quad 00:00:00 [facility] 65+ Influenza Virus 2021-03-29 Completed [facility] Vaccine,quad 00:00:00 [facility] 65+ Influenza Virus 2021-03-29 Completed [facility] Vaccine,quad 00:00:00 [facility] 65+ Influenza Virus 2021-03-29 Completed [facility] Vaccine,quad 00:00:00 [facility] 65+ Influenza Virus 2021-03-29 Completed [facility] Vaccine,quad 00:00:00 [facility] 65+ Influenza Virus 2021-03-29 Completed [facility] Vaccine,quad 00:00:00 [facility] 65+ Influenza Virus 2021-03-29 Completed [facility] Vaccine,quad 00:00:00 [facility] 65+ Influenza Virus 2021-03-29 Completed [facility] Vaccine,quad 00:00:00 [facility] 65+ Influenza Virus 2021-03-29 Completed [facility] Vaccine,quad 00:00:00 [facility] 65+ Influenza Virus 2021-03-29 Completed [facility] Vaccine,quad 00:00:00 [facility] 65+ Influenza Virus 2021-03-29 Completed [facility] Vaccine,quad 00:00:00 [facility] 65+ Influenza Virus 2021-03-29 Completed [facility] Vaccine,quad 00:00:00 [facility] 65+ Influenza Virus 2021-03-29 Completed [facility] Vaccine,quad 00:00:00 [facility] 65+ Influenza Virus 2021-03-29 Completed [facility] Vaccine,quad 00:00:00 [facility] 65+ Influenza Virus 2021-03-29 Completed [facility] Vaccine,quad 00:00:00 [place] [facility] 65+ Influenza Virus 2021-03-29 Completed [facility] Vaccine,quad 00:00:00 [place] [facility] 65+ Influenza Virus 2021-03-29 Completed [facility] Vaccine,quad 00:00:00 [place] [facility] 65+ Influenza Virus 2021-03-29 Completed [facility] Vaccine,quad 00:00:00 [place] [facility] 65+ Influenza Virus 2021-03-29 Completed [facility] Vaccine,quad 00:00:00 [place] [facility] 65+ Influenza Virus 2021-03-29 Completed [facility] Vaccine,quad 00:00:00 [place] [facility] 65+ Influenza Virus 2021-03-29 Completed [facility] Vaccine,quad 00:00:00 [place] [facility] 65+ Influenza Virus 2021-03-29 Completed [facility] Vaccine,quad 00:00:00 [place] [facility] 65+ Influenza Virus 2021-03-29 Completed [facility] Vaccine,quad 00:00:00 [place] [facility] 65+ Influenza Virus 2021-03-29 Completed [facility] Vaccine,quad 00:00:00 [place] [facility] 65+ Influenza Virus 2021-03-29 Completed [facility] Vaccine,quad 00:00:00 [facility] 65+ Influenza Virus 2021-03-29 Completed [facility] Vaccine,quad 00:00:00 [facility] 65+ Influenza Virus 2021-03-29 Completed [facility] Vaccine,quad 00:00:00 [facility] 65+ Influenza Virus 2021-03-29 Completed [facility] Vaccine,quad 00:00:00 [facility] 65+ Influenza Virus 2021-03-29 Completed [facility] Vaccine,quad 00:00:00 [facility] 65+ Influenza Virus 2021-03-29 Completed [facility] Vaccine,quad 00:00:00 [facility] 65+ Influenza Virus 2021-03-29 Completed [facility] Vaccine,quad 00:00:00 [facility] 65+ Influenza Virus 2021-03-29 Completed [facility] Vaccine,quad 00:00:00 [facility] 65+ Influenza Virus 2021-03-29 Completed [facility] Vaccine,quad 00:00:00 [facility] 65+ Influenza Virus 2021-03-29 Completed [facility] Vaccine,quad 00:00:00 [facility] 65+ Influenza Virus 2021-03-29 Completed [facility] Vaccine,quad 00:00:00 [facility] 65+ Influenza Virus 2021-03-29 Completed [facility] Vaccine,quad 00:00:00 [facility] 65+ Influenza Virus 2021-03-29 Completed [facility] Vaccine,quad 00:00:00 [facility] 65+ Influenza Virus 2021-03-29 Completed [facility] Vaccine,quad 00:00:00 [place] [facility] 65+ Influenza Virus 2021-03-29 Completed [facility] Vaccine,quad 00:00:00 [facility] 65+ Influenza Virus 2021-03-29 Completed [facility] Vaccine,quad 00:00:00 [facility] 65+ Influenza Virus 2021-03-29 Completed [facility] Vaccine,quad 00:00:00 [facility] 65+ Influenza Virus 2021-03-29 Completed [facility] Vaccine,quad 00:00:00 [facility] 65+ Influenza Virus 2021-03-29 Completed [facility] Vaccine,quad 00:00:00 [facility] 65+ SARS-COV-2 COVID-19 2020-12-29 Completed [facility] of MODERNA 12+ YRS 00:00:00 [place] [facility] VACCINE [facility] SARS-COV-2 COVID-19 2020-12-29 Completed [facility] of MODERNA 12+ YRS 00:00:00 [place] [facility] V[facility]INE [facility] SARS-COV-2 COVID-19 2020-12-29 Completed [facility] of MODERNA 12+ YRS 00:00:00 [place] [facility] V[facility]INE [facility] SARS-COV-2 COVID-19 2020-12-29 Completed [facility] of MODERNA 12+ YRS 00:00:00 [place] [facility] VACCINE [facility] SARS-COV-2 COVID-19 2020-12-29 Completed [facility] rs[facility] of MODERNA 12+ YRS 00:00:00 [place] [facility] VACCINE [facility] SARS-COV-2 COVID-19 2020-12-29 Completed [facility] of MODERNA 12+ YRS 00:00:00 [place] [facility] VACCINE [facility] SARS-COV-2 COVID-19 2020-12-29 Completed [facility] rs[facility] of MODERNA 12+ YRS 00:00:00 [place] [facility] VACCINE [facility] SARS-COV-2 COVID-19 2020-12-29 Completed [facility] rs[facility] of MODERNA 12+ YRS 00:00:00 [place] [facility] VACCINE [facility] SARS-COV-2 COVID-19 2020-12-29 Completed [facility] rs[facility] of MODERNA 12+ YRS 00:00:00 [place] [facility] VACCINE [facility] SARS-COV-2 COVID-19 2020-12-29 Completed [facility] rs[facility] of MODERNA 12+ YRS 00:00:00 [place] [facility] VACCINE [facility] SARS-COV-2 COVID-19 2020-12-29 Completed [facility] rsity of MODERNA 12+ YRS 00:00:00 [place] [facility] VACCINE [facility] SARS-COV-2 COVID-19 2020-12-29 Completed [facility] rs[facility] of MODERNA 12+ YRS 00:00:00 [place] [facility] VACCINE [facility] SARS-COV-2 COVID-19 2020-12-29 Completed [facility] rs[facility] of MODERNA 12+ YRS 00:00:00 [place] [facility] VACCINE [facility] SARS-COV-2 COVID-19 2020-12-29 Completed [facility] rs[facility] of MODERNA 12+ YRS 00:00:00 [place] [facility] VACCINE [facility] SARS-COV-2 COVID-19 2020-12-29 Completed [facility] rs[facility] of MODERNA 12+ YRS 00:00:00 [place] [facility] VACCINE [facility] SARS-COV-2 COVID-19 2020-12-29 Completed [facility] rs[facility] of MODERNA 12+ YRS 00:00:00 [place] [facility] VACCINE [facility] SARS-COV-2 COVID-19 2020-12-29 Completed [facility] rs[facility] of MODERNA 12+ YRS 00:00:00 [place] [facility] VACCINE [facility] SARS-COV-2 COVID-19 2020-12-29 Completed [facility] rs[facility] of MODERNA 12+ YRS 00:00:00 [place] [facility] VACCINE [facility] SARS-COV-2 COVID-19 2020-12-29 Completed [facility] rs[facility] of MODERNA 12+ YRS 00:00:00 [place] [facility] VACCINE [facility] SARS-COV-2 COVID-19 2020-12-29 Completed [facility] rs[facility] of MODERNA 12+ YRS 00:00:00 [place] [facility] VACCINE [facility] SARS-COV-2 COVID-19 2020-12-29 Completed [facility] rs[facility] of MODERNA 12+ YRS 00:00:00 [place] [facility] VACCINE [facility] SARS-COV-2 COVID-19 2020-12-29 Completed [facility] rs[facility] of MODERNA 12+ YRS 00:00:00 [place] [facility] VACCINE [facility] SARS-COV-2 COVID-19 2020-12-29 Completed [facility] rs[facility] of MODERNA 12+ YRS 00:00:00 [place] [facility] VACCINE [facility] SARS-COV-2 COVID-19 2020-12-29 Completed [facility] rs[facility] of MODERNA 12+ YRS 00:00:00 [place] [facility] VACCINE [facility] SARS-COV-2 COVID-19 2020-12-29 Completed [facility] rs[facility] of MODERNA 12+ YRS 00:00:00 [place] [facility] VACCINE [facility] SARS-COV-2 COVID-19 2020-12-29 Completed [facility] rs[facility] of MODERNA 12+ YRS 00:00:00 [place] [facility] VACCINE [facility] SARS-COV-2 COVID-19 2020-12-29 Completed [facility] rs[facility] of MODERNA 12+ YRS 00:00:00 [place] [facility] VACCINE [facility] SARS-COV-2 COVID-19 2020-12-29 Completed [facility] rs[facility] of MODERNA 12+ YRS 00:00:00 [place] [facility] VACCINE [facility] SARS-COV-2 COVID-19 2020-12-29 Completed [facility] rs[facility] of MODERNA 12+ YRS 00:00:00 [place] [facility] VACCINE [facility] SARS-COV-2 COVID-19 2020-12-29 Completed [facility] rs[facility] of MODERNA 12+ YRS 00:00:00 [place] [facility] VACCINE [facility] SARS-COV-2 COVID-19 2020-12-29 Completed [facility] rs[facility] of MODERNA 12+ YRS 00:00:00 [place] [facility] VACCINE [facility] SARS-COV-2 COVID-19 2020-12-29 Completed [facility] rs[facility] of MODERNA 12+ YRS 00:00:00 [place] [facility] VACCINE [facility] SARS-COV-2 COVID-19 2020-12-29 Completed [facility] rs[facility] of MODERNA 12+ YRS 00:00:00 [place] [facility] VACCINE [facility] SARS-COV-2 COVID-19 2020-12-29 Completed [facility] rs[facility] of MODERNA 12+ YRS 00:00:00 [place] [facility] VACCINE [facility] SARS-COV-2 COVID-19 2020-12-29 Completed [facility] rsity of MODERNA 12+ YRS 00:00:00 [place] [facility] VACCINE [facility] SARS-COV-2 COVID-19 2020-12-29 Completed [facility] rsity of MODERNA 12+ YRS 00:00:00 [place] [facility] VACCINE [facility] SARS-COV-2 COVID-19 2020-12-29 Completed [facility] rsity of MODERNA 12+ YRS 00:00:00 [place] [facility] VACCINE [facility] SARS-COV-2 COVID-19 2020-12-29 Completed [facility] rs[facility] of MODERNA 12+ YRS 00:00:00 [place] [facility] VACCINE [facility] SARS-COV-2 COVID-19 2020-12-29 Completed [facility] rs[facility] of MODERNA 12+ YRS 00:00:00 [place] [facility] VACCINE [facility] SARS-COV-2 COVID-19 2020-12-29 Completed [facility] rs[facility] of MODERNA 12+ YRS 00:00:00 [place] [facility] VACCINE [facility] SARS-COV-2 COVID-19 2020-12-29 Completed [facility] rs[facility] of MODERNA 12+ YRS 00:00:00 [place] [facility] VACCINE [facility] SARS-COV-2 COVID-19 2020-12-29 Completed [facility] rs[facility] of MODERNA 12+ YRS 00:00:00 [place] [facility] VACCINE [facility] SARS-COV-2 COVID-19 2020-12-29 Completed [facility] rs[facility] of MODERNA 12+ YRS 00:00:00 [place] [facility] VACCINE [facility] SARS-COV-2 COVID-19 2020-12-29 Completed [facility] of MODERNA 12+ YRS 00:00:00 [place] [facility] VACCINE [facility] SARS-COV-2 COVID-19 2020-12-29 Completed [facility] of MODERNA 12+ YRS 00:00:00 [place] [facility] VACCINE [facility] SARS-COV-2 COVID-19 2020-12-29 Completed [facility] of MODERNA 12+ YRS 00:00:00 [place] [facility] VACCINE [facility] SARS-COV-2 COVID-19 2020-12-29 Completed [facility] of MODERNA 12+ YRS 00:00:00 [place] [facility] VACCINE [facility] SARS-COV-2 COVID-19 2020-12-29 Completed [facility] of MODERNA 12+ YRS 00:00:00 [place] [facility] VACCINE [facility] SARS-COV-2 COVID-19 2020-12-29 Completed [facility] of MODERNA 12+ YRS 00:00:00 [place] [facility] VACCINE [facility] SARS-COV-2 COVID-19 2020-12-29 Completed [facility] of MODERNA 12+ YRS 00:00:00 [place] [facility] VACCINE [facility] SARS-COV-2 COVID-19 2020-12-29 Completed [facility] of MODERNA 12+ YRS 00:00:00 [place] [facility] VACCINE [facility] SARS-COV-2 COVID-19 2020-12-29 Completed [facility] of MODERNA 12+ YRS 00:00:00 [place] [facility] VACCINE [facility] SARS-COV-2 COVID-19 2020-12-29 Completed [facility] of MODERNA 12+ YRS 00:00:00 [place] [facility] VACCINE [facility] SARS-COV-2 COVID-19 2020-12-29 Completed [facility] of MODERNA 12+ YRS 00:00:00 [place] [facility] VACCINE [facility] SARS-COV-2 COVID-19 2020-12-29 Completed [facility] of MODERNA 12+ YRS 00:00:00 [place] [facility] VACCINE [facility] SARS-COV-2 COVID-19 2020-12-29 Completed [facility] of MODERNA 12+ YRS 00:00:00 [place] [facility] VACCINE [facility] SARS-COV-2 COVID-19 2020-12-29 Completed [facility] of MODERNA 12+ YRS 00:00:00 [place] [facility] VACC[facility] SARS-COV-2 COVID-19 2020-12-29 Completed [facility] of MODERNA 12+ YRS 00:00:00 [place] [facility] VACC[facility] SARS-COV-2 COVID-19 2020-06-01 Completed [facility] of MODERNA 12+ YRS 00:00:00 [place] [facility] VACCINE [facility] SARS-COV-2 COVID-19 2020-06-01 Completed [facility] of MODERNA 12+ YRS 00:00:00 [place] [facility] VACCINE [facility] SARS-COV-2 COVID-19 2020-06-01 Completed [facility] of MODERNA 12+ YRS 00:00:00 [place] [facility] VACCINE [facility] SARS-COV-2 COVID-19 2020-06-01 Completed [facility] of MODERNA 12+ YRS 00:00:00 [place] [facility]ACC[facility] SARS-COV-2 COVID-19 2020-06-01 Completed [facility] of MODERNA 12+ YRS 00:00:00 [place] [facility] VACC[facility] SARS-COV-2 COVID-19 2020-06-01 Completed [facility] of MODERNA 12+ YRS 00:00:00 [place] [facility] VACC[facility] SARS-COV-2 COVID-19 2020-06-01 Completed [facility] of MODERNA 12+ YRS 00:00:00 [place] [facility] VACC[facility] SARS-COV-2 COVID-19 2020-06-01 Completed [facility] of MODERNA 12+ YRS 00:00:00 [place] [facility]ACC[facility] SARS-COV-2 COVID-19 2020-06-01 Completed [facility] of MODERNA 12+ YRS 00:00:00 [place] [facility] VACC[facility] SARS-COV-2 COVID-19 2020-06-01 Completed [facility] of MODERNA 12+ YRS 00:00:00 [place] [facility] VACC[facility] SARS-COV-2 COVID-19 2020-06-01 Completed [facility] of MODERNA 12+ YRS 00:00:00 [place] [facility] VACC[facility] SARS-COV-2 COVID-19 2020-06-01 Completed [facility] of MODERNA 12+ YRS 00:00:00 [place] [facility]ACC[facility] SARS-COV-2 COVID-19 2020-06-01 Completed [facility] of MODERNA 12+ YRS 00:00:00 [place] [facility] VACC[facility] SARS-COV-2 COVID-19 2020-06-01 Completed [facility] of MODERNA 12+ YRS 00:00:00 [place] [facility] VACCINE [facility] SARS-COV-2 COVID-19 2020-06-01 Completed [facility] of MODERNA 12+ YRS 00:00:00 [place] [facility] VACCINE [facility] SARS-COV-2 COVID-19 2020-06-01 Completed [facility] of MODERNA 12+ YRS 00:00:00 [place] [facility] VACCINE [facility] SARS-COV-2 COVID-19 2020-06-01 Completed [facility] of MODERNA 12+ YRS 00:00:00 [place] [facility] VACCINE [facility] SARS-COV-2 COVID-19 2020-06-01 Completed [facility] of MODERNA 12+ YRS 00:00:00 [place] [facility]ACC[facility] SARS-COV-2 COVID-19 2020-06-01 Completed [facility] of MODERNA 12+ YRS 00:00:00 [place] [facility] SARS-COV-2 COVID-19 2020-06-01 Completed [facility] of MODERNA 12+ YRS 00:00:00 [place] [facility]ACC[facility] SARS-COV-2 COVID-19 2020-06-01 Completed [facility] of MODERNA 12+ YRS 00:00:00 [place] [facility] SARS-COV-2 COVID-19 2020-06-01 Completed [facility] of MODERNA 12+ YRS 00:00:00 [place] [facility]ACC[facility] SARS-COV-2 COVID-19 2020-06-01 Completed [facility] of MODERNA 12+ YRS 00:00:00 [place] [facility] SARS-COV-2 COVID-19 2020-06-01 Completed [facility] of MODERNA 12+ YRS 00:00:00 [place] [facility] SARS-COV-2 COVID-19 2020-06-01 Completed [facility] of MODERNA 12+ YRS 00:00:00 [place] [facility] SARS-COV-2 COVID-19 2020-06-01 Completed [facility] of MODERNA 12+ YRS 00:00:00 [place] [facility] SARS-COV-2 COVID-19 2020-06-01 Completed [facility] of MODERNA 12+ YRS 00:00:00 [place] [facility] SARS-COV-2 COVID-19 2020-06-01 Completed [facility] of MODERNA 12+ YRS 00:00:00 [place] [facility] SARS-COV-2 COVID-19 2020-06-01 Completed [facility] of MODERNA 12+ YRS 00:00:00 [place] [facility] SARS-COV-2 COVID-19 2020-06-01 Completed [facility] of MODERNA 12+ YRS 00:00:00 [place] [facility]ACC[facility] SARS-COV-2 COVID-19 2020-06-01 Completed [facility] of MODERNA 12+ YRS 00:00:00 [place] [facility]ACC[facility] SARS-COV-2 COVID-19 2020-06-01 Completed [facility] of MODERNA 12+ YRS 00:00:00 [place] [facility] SARS-COV-2 COVID-19 2020-06-01 Completed [facility] of MODERNA 12+ YRS 00:00:00 [place] [facility]ACC[facility] SARS-COV-2 COVID-19 2020-06-01 Completed [facility] of MODERNA 12+ YRS 00:00:00 [place] [facility]ACC[facility] SARS-COV-2 COVID-19 2020-06-01 Completed [facility] of MODERNA 12+ YRS 00:00:00 [place] [facility]ACC[facility] SARS-COV-2 COVID-19 2020-06-01 Completed [facility] of MODERNA 12+ YRS 00:00:00 [place] [facility]ACC[facility] SARS-COV-2 COVID-19 2020-06-01 Completed [facility] of MODERNA 12+ YRS 00:00:00 [place] [facility]ACCINE [facility] SARS-COV-2 COVID-19 2020-06-01 Completed [facility] of MODERNA 12+ YRS 00:00:00 [place] [facility]ACC[facility] SARS-COV-2 COVID-19 2020-06-01 Completed [facility] of MODERNA 12+ YRS 00:00:00 [place] [facility] SARS-COV-2 COVID-19 2020-06-01 Completed [facility] of MODERNA 12+ YRS 00:00:00 [place] [facility]ACC[facility] SARS-COV-2 COVID-19 2020-06-01 Completed [facility] of MODERNA 12+ YRS 00:00:00 [place] [facility]ACC[facility] SARS-COV-2 COVID-19 2020-06-01 Completed [facility] of MODERNA 12+ YRS 00:00:00 [place] [facility] SARS-COV-2 COVID-19 2020-06-01 Completed [facility] of MODERNA 12+ YRS 00:00:00 [place] [facility] SARS-COV-2 COVID-19 2020-06-01 Completed [facility] of MODERNA 12+ YRS 00:00:00 [place] [facility] SARS-COV-2 COVID-19 2020-06-01 Completed [facility] of MODERNA 12+ YRS 00:00:00 [place] [facility] SARS-COV-2 COVID-19 2020-06-01 Completed [facility] of MODERNA 12+ YRS 00:00:00 [place] [facility] SARS-COV-2 COVID-19 2020-06-01 Completed [facility] of MODERNA 12+ YRS 00:00:00 [place] [facility]ACC[facility] SARS-COV-2 COVID-19 2020-06-01 Completed [facility] of MODERNA 12+ YRS 00:00:00 [place] [facility] SARS-COV-2 COVID-19 2020-06-01 Completed [facility] of MODERNA 12+ YRS 00:00:00 [place] [facility]ACC[facility] SARS-COV-2 COVID-19 2020-06-01 Completed [facility] of MODERNA 12+ YRS 00:00:00 [place] [facility] SARS-COV-2 COVID-19 2020-06-01 Completed [facility] of MODERNA 12+ YRS 00:00:00 [place] [facility] SARS-COV-2 COVID-19 2020-06-01 Completed [facility] of MODERNA 12+ YRS 00:00:00 [place] [facility] SARS-COV-2 COVID-19 2020-06-01 Completed [facility] of MODERNA 12+ YRS 00:00:00 [place] [facility] SARS-COV-2 COVID-19 2020-06-01 Completed [facility] of MODERNA 12+ YRS 00:00:00 [place] [facility] SARS-COV-2 COVID-19 2020-06-01 Completed [facility] of MODERNA 12+ YRS 00:00:00 [place] [facility] SARS-COV-2 COVID-19 2020-06-01 Completed [facility] of MODERNA 12+ YRS 00:00:00 [place] [facility] SARS-COV-2 COVID-19 2020-06-01 Completed [facility] of MODERNA 12+ YRS 00:00:00 [place] [facility] SARS-COV-2 COVID-19 2020-06-01 Completed [facility] of MODERNA 12+ YRS 00:00:00 [place] [facility] SARS-COV-2 COVID-19 2020-05-04 Completed [facility] of MODERNA 12+ YRS 00:00:00 [place] [facility] SARS-COV-2 COVID-19 2020-05-04 Completed [facility] of MODERNA 12+ YRS 00:00:00 [place] [facility] SARS-COV-2 COVID-19 2020-05-04 Completed [facility] of MODERNA 12+ YRS 00:00:00 [place] [facility] SARS-COV-2 COVID-19 2020-05-04 Completed [facility] of MODERNA 12+ YRS 00:00:00 [place] [facility] SARS-COV-2 COVID-19 2020-05-04 Completed [facility] of MODERNA 12+ YRS 00:00:00 [place] [facility] SARS-COV-2 COVID-19 2020-05-04 Completed [facility] of MODERNA 12+ YRS 00:00:00 [place] [facility] SARS-COV-2 COVID-19 2020-05-04 Completed [facility] of MODERNA 12+ YRS 00:00:00 [place] [facility] SARS-COV-2 COVID-19 2020-05-04 Completed [facility] of MODERNA 12+ YRS 00:00:00 [place] [facility] SARS-COV-2 COVID-19 2020-05-04 Completed [facility] of MODERNA 12+ YRS 00:00:00 [place] [facility] SARS-COV-2 COVID-19 2020-05-04 Completed [facility] of MODERNA 12+ YRS 00:00:00 [place] [facility]ACC[facility] SARS-COV-2 COVID-19 2020-05-04 Completed [facility] 12+ YRS 00:00:00 [place] [facility] SARS-COV-2 COVID-19 2020-05-04 Completed [facility] 12+ YRS 00:00:00 [place] [facility]ACC[facility] SARS-COV-2 COVID-19 2020-05-04 Completed [facility] 12+ YRS 00:00:00 [place] [facility] SARS-COV-2 COVID-19 2020-05-04 Completed [facility] 12+ YRS 00:00:00 [place] [facility] VACC[facility] SARS-COV-2 COVID-19 2020-05-04 Completed [facility] 12+ YRS 00:00:00 [place] [facility] SARS-COV-2 COVID-19 2020-05-04 Completed [facility] 12+ YRS 00:00:00 [facility] SARS-COV-2 COVID-19 2020-05-04 Completed [facility] 12+ YRS 00:00:00 [facility] SARS-COV-2 COVID-19 2020-05-04 Completed [facility] 12+ YRS 00:00:00 [facility] SARS-COV-2 COVID-19 2020-05-04 Completed [facility] 12+ YRS 00:00:00 [facility] SARS-COV-2 COVID-19 2020-05-04 Completed [facility] 12+ YRS 00:00:00 [facility] SARS-COV-2 COVID-19 2020-05-04 Completed [facility] 12+ YRS 00:00:00 [facility] SARS-COV-2 COVID-19 2020-05-04 Completed [facility] 12+ YRS 00:00:00 [facility] SARS-COV-2 COVID-19 2020-05-04 Completed [facility] 12+ YRS 00:00:00 [facility] SARS-COV-2 COVID-19 2020-05-04 Completed [facility] 12+ YRS 00:00:00 [facility] SARS-COV-2 COVID-19 2020-05-04 Completed [facility] 12+ YRS 00:00:00 [facility] SARS-COV-2 COVID-19 2020-05-04 Completed [facility] 12+ YRS 00:00:00 [facility] SARS-COV-2 COVID-19 2020-05-04 Completed [facility] 12+ YRS 00:00:00 [facility] SARS-COV-2 COVID-19 2020-05-04 Completed [facility] 12+ YRS 00:00:00 [facility] SARS-COV-2 COVID-19 2020-05-04 Completed [facility] 12+ YRS 00:00:00 [facility] SARS-COV-2 COVID-19 2020-05-04 Completed [facility] 12+ YRS 00:00:00 [facility] SARS-COV-2 COVID-19 2020-05-04 Completed [facility] 12+ YRS 00:00:00 [facility] SARS-COV-2 COVID-19 2020-05-04 Completed [facility] 12+ YRS 00:00:00 [facility] SARS-COV-2 COVID-19 2020-05-04 Completed [facility] 12+ YRS 00:00:00 [facility] SARS-COV-2 COVID-19 2020-05-04 Completed [facility] 12+ YRS 00:00:00 [facility] SARS-COV-2 COVID-19 2020-05-04 Completed [facility] 12+ YRS 00:00:00 [facility] SARS-COV-2 COVID-19 2020-05-04 Completed [facility] 12+ YRS 00:00:00 [facility] SARS-COV-2 COVID-19 2020-05-04 Completed [facility] 12+ YRS 00:00:00 [facility] SARS-COV-2 COVID-19 2020-05-04 Completed [facility] 12+ YRS 00:00:00 [facility] SARS-COV-2 COVID-19 2020-05-04 Completed [facility] 12+ YRS 00:00:00 [facility] SARS-COV-2 COVID-19 2020-05-04 Completed [facility] 12+ YRS 00:00:00 [facility] SARS-COV-2 COVID-19 2020-05-04 Completed [facility] 12+ YRS 00:00:00 [facility] SARS-COV-2 COVID-19 2020-05-04 Completed [facility] 12+ YRS 00:00:00 [facility] SARS-COV-2 COVID-19 2020-05-04 Completed [facility] 12+ YRS 00:00:00 [facility] SARS-COV-2 COVID-19 2020-05-04 Completed [facility] 12+ YRS 00:00:00 [facility] SARS-COV-2 COVID-19 2020-05-04 Completed [facility] 12+ YRS 00:00:00 [place] [facility] SARS-COV-2 COVID-19 2020-05-04 Completed [facility] 12+ YRS 00:00:00 [facility] SARS-COV-2 COVID-19 2020-05-04 Completed [facility] 12+ YRS 00:00:00 [place] [facility] SARS-COV-2 COVID-19 2020-05-04 Completed [facility] 12+ YRS 00:00:00 [place] [facility] SARS-COV-2 COVID-19 2020-05-04 Completed [facility] 12+ YRS 00:00:00 [facility] ical VACCINE Branch SARS-COV-2 COVID-19 2020-05-04 Completed [facility] 12+ YRS 00:00:00 [facility] ical VACCINE Branch SARS-COV-2 COVID-19 2020-05-04 Completed [facility] 12+ YRS 00:00:00 [facility] ical VACCINE Branch SARS-COV-2 COVID-19 2020-05-04 Completed [facility] 12+ YRS 00:00:00 [facility] ical VACCINE Branch SARS-COV-2 COVID-19 2020-05-04 Completed [facility] of [facility] 12+ YRS 00:00:00 [facility] ical VACCINE Branch SARS-COV-2 COVID-19 2020-05-04 Completed [facility] 12+ YRS 00:00:00 [facility] ical VACCINE Branch SARS-COV-2 COVID-19 2020-05-04 Completed [facility] 12+ YRS 00:00:00 [facility] ical VACCINE Branch SARS-COV-2 COVID-19 2020-05-04 Completed [facility] of [facility] 12+ YRS 00:00:00 [facility] ical VACCINE Branch SARS-COV-2 COVID-19 2020-05-04 Completed [facility] 12+ YRS 00:00:00 [facility] ical VACCINE Branch SARS-COV-2 COVID-19 2020-05-04 Completed [facility] 12+ YRS 00:00:00 [facility] VACCINE Branch Influenza Virus 2020-02-16 Completed [facility] Vaccine [facility] IM 3+ 00:00:00 [facility] Influenza Virus 2020-02-16 Completed [facility] Vaccine [facility] IM 3+ 00:00:00 [facility] Influenza Virus 2020-02-16 Completed [facility] Vaccine [facility] IM 3+ 00:00:00 [facility] Influenza Virus 2020-02-16 Completed [facility] Vaccine [facility] IM 3+ 00:00:00 [facility] Influenza Virus 2020-02-16 Completed [facility] Vaccine [facility] IM 3+ 00:00:00 [facility] Influenza Virus 2020-02-16 Completed [facility] Vaccine [facility] IM 3+ 00:00:00 [facility] Influenza Virus 2020-02-16 Completed [facility] Vaccine [facility] IM 3+ 00:00:00 [facility] Influenza Virus 2020-02-16 Completed [facility] Vaccine [facility] IM 3+ 00:00:00 [facility] Influenza Virus 2020-02-16 Completed [facility] Vaccine [facility] IM 3+ 00:00:00 [facility] Influenza Virus 2020-02-16 Completed [facility] Vaccine Quad IM 3+ 00:00:00 [facility] Influenza Virus 2020-02-16 Completed [facility] Vaccine Quad IM 3+ 00:00:00 [facility] Influenza Virus 2020-02-16 Completed [facility] Vaccine Quad IM 3+ 00:00:00 [facility] Influenza Virus 2020-02-16 Completed [facility] Vaccine Quad IM 3+ 00:00:00 [facility] Influenza Virus 2020-02-16 Completed [facility] Vaccine [facility] IM 3+ 00:00:00 [facility] Influenza Virus 2020-02-16 Completed [facility] Vaccine Quad IM 3+ 00:00:00 [facility] Influenza Virus 2020-02-16 Completed [facility] Vaccine Quad IM 3+ 00:00:00 [facility] Influenza Virus 2020-02-16 Completed [facility] Vaccine Quad IM 3+ 00:00:00 [facility] Influenza Virus 2020-02-16 Completed [facility] Vaccine Quad IM 3+ 00:00:00 [facility] Influenza Virus 2020-02-16 Completed [facility] of Vaccine Quad IM 3+ 00:00:00 [facility] Influenza Virus 2020-02-16 Completed [facility] Vaccine [facility] IM 3+ 00:00:00 [facility] Influenza Virus 2020-02-16 Completed [facility] Vaccine Quad IM 3+ 00:00:00 [facility] Influenza Virus 2020-02-16 Completed [facility] Vaccine Quad IM 3+ 00:00:00 [facility] Influenza Virus 2020-02-16 Completed [facility] Vaccine Quad IM 3+ 00:00:00 [facility] Influenza Virus 2020-02-16 Completed [facility] Vaccine Quad IM 3+ 00:00:00 [facility] Influenza Virus 2020-02-16 Completed [facility] Vaccine Quad IM 3+ 00:00:00 [facility] Influenza Virus 2020-02-16 Completed [facility] Vaccine Quad IM 3+ 00:00:00 [facility] Influenza Virus 2020-02-16 Completed [facility] Vaccine Quad IM 3+ 00:00:00 [facility] Influenza Virus 2020-02-16 Completed [facility] Vaccine Quad IM 3+ 00:00:00 [facility] Influenza Virus 2020-02-16 Completed [facility] Vaccine Quad IM 3+ 00:00:00 [facility] Influenza Virus 2020-02-16 Completed [facility] Vaccine Quad IM 3+ 00:00:00 [facility] Influenza Virus 2020-02-16 Completed [facility] Vaccine Quad IM 3+ 00:00:00 [facility] Influenza Virus 2020-02-16 Completed [facility] Vaccine Quad IM 3+ 00:00:00 [facility] Influenza Virus 2020-02-16 Completed [facility] Vaccine Quad IM 3+ 00:00:00 [facility] Influenza Virus 2020-02-16 Completed [facility] of Vaccine Quad IM 3+ 00:00:00 [facility] Influenza Virus 2020-02-16 Completed [facility] Vaccine Quad IM 3+ 00:00:00 [facility] Influenza Virus 2020-02-16 Completed [facility] of Vaccine Quad IM 3+ 00:00:00 [facility] Influenza Virus 2020-02-16 Completed [facility] of Vaccine Quad IM 3+ 00:00:00 [facility] Influenza Virus 2020-02-16 Completed [facility] of Vaccine Quad IM 3+ 00:00:00 [facility] Influenza Virus 2020-02-16 Completed [facility] of Vaccine Quad IM 3+ 00:00:00 [facility] Influenza Virus 2020-02-16 Completed [facility] of Vaccine Quad IM 3+ 00:00:00 [facility] Influenza Virus 2020-02-16 Completed [facility] of Vaccine Quad IM 3+ 00:00:00 [facility] Influenza Virus 2020-02-16 Completed [facility] of Vaccine Quad IM 3+ 00:00:00 [facility] Influenza Virus 2020-02-16 Completed [facility] of Vaccine Quad IM 3+ 00:00:00 [facility] Influenza Virus 2020-02-16 Completed [facility] of Vaccine Quad IM 3+ 00:00:00 [facility] Influenza Virus 2020-02-16 Completed [facility] of Vaccine Quad IM 3+ 00:00:00 [facility] Influenza Virus 2020-02-16 Completed [facility] of Vaccine Quad IM 3+ 00:00:00 [facility] Influenza Virus 2020-02-16 Completed [facility] of Vaccine Quad IM 3+ 00:00:00 [facility] Influenza Virus 2020-02-16 Completed [facility] of Vaccine Quad IM 3+ 00:00:00 [facility] Influenza Virus 2020-02-16 Completed [facility] of Vaccine Quad IM 3+ 00:00:00 [facility] Influenza Virus 2020-02-16 Completed [facility] of Vaccine Quad IM 3+ 00:00:00 [facility] Influenza Virus 2020-02-16 Completed [facility] of Vaccine Quad IM 3+ 00:00:00 [facility] Influenza Virus 2020-02-16 Completed [facility] of Vaccine Quad IM 3+ 00:00:00 [facility] Influenza Virus 2020-02-16 Completed [facility] of Vaccine Quad IM 3+ 00:00:00 [facility] Influenza Virus 2020-02-16 Completed [facility] of Vaccine Quad IM 3+ 00:00:00 [facility] Influenza Virus 2020-02-16 Completed [facility] of Vaccine Quad IM 3+ 00:00:00 [facility] Influenza Virus 2020-02-16 Completed [facility] of Vaccine Quad IM 3+ 00:00:00 [facility] Influenza Virus 2020-02-16 Completed [facility] of Vaccine Quad IM 3+ 00:00:00 [facility] Influenza Virus 2020-02-16 Completed [facility] of Vaccine Quad IM 3+ 00:00:00 [facility] Influenza Virus 2019-02-11 Completed [facility] of Vaccine 00:00:00 [facility] Influenza Virus 2019-02-11 Completed [facility] of Vaccine 00:00:00 [facility] Influenza Virus 2019-02-11 Completed [facility] of Vaccine 00:00:00 [facility] Influenza Virus 2019-02-11 Completed [facility] of Vaccine 00:00:00 [facility] Influenza Virus 2019-02-11 Completed [facility] of Vaccine 00:00:00 [facility] Influenza Virus 2019-02-11 Completed [facility] of Vaccine 00:00:00 [facility] Influenza Virus 2019-02-11 Completed [facility] of Vaccine 00:00:00 [facility] Influenza Virus 2019-02-11 Completed [facility] of Vaccine 00:00:00 [facility] Influenza Virus 2019-02-11 Completed [facility] of Vaccine 00:00:00 [facility] Influenza Virus 2019-02-11 Completed [facility] of Vaccine 00:00:00 [facility] Influenza Virus 2019-02-11 Completed [facility] of Vaccine 00:00:00 [facility] Influenza Virus 2019-02-11 Completed [facility] of Vaccine 00:00:00 [facility] Influenza Virus 2019-02-11 Completed [facility] of Vaccine 00:00:00 [facility] Influenza Virus 2019-02-11 Completed [facility] of Vaccine 00:00:00 [facility] Influenza Virus 2019-02-11 Completed [facility] of Vaccine 00:00:00 [facility] Influenza Virus 2019-02-11 Completed [facility] of Vaccine 00:00:00 [facility] Influenza Virus 2019-02-11 Completed [facility] of Vaccine 00:00:00 [facility] Influenza Virus 2019-02-11 Completed [facility] of Vaccine 00:00:00 [facility] Influenza Virus 2019-02-11 Completed [facility] of Vaccine 00:00:00 [facility] Influenza Virus 2019-02-11 Completed [facility] of Vaccine 00:00:00 [facility] Influenza Virus 2019-02-11 Completed [facility] of Vaccine 00:00:00 [facility] Influenza Virus 2019-02-11 Completed [facility] of Vaccine 00:00:00 [facility] Influenza Virus 2019-02-11 Completed [facility] of Vaccine 00:00:00 [facility] Influenza Virus 2019-02-11 Completed [facility] of Vaccine 00:00:00 [facility] Influenza Virus 2019-02-11 Completed [facility] of Vaccine 00:00:00 [facility] Influenza Virus 2019-02-11 Completed [facility] of Vaccine 00:00:00 [facility] Influenza Virus 2019-02-11 Completed [facility] of Vaccine 00:00:00 [facility] Influenza Virus 2019-02-11 Completed [facility] of Vaccine 00:00:00 [facility] Influenza Virus 2019-02-11 Completed [facility] of Vaccine 00:00:00 [facility] Influenza Virus 2019-02-11 Completed [facility] of Vaccine 00:00:00 [facility] Influenza Virus 2019-02-11 Completed [facility] of Vaccine 00:00:00 [facility] Influenza Virus 2019-02-11 Completed [facility] of Vaccine 00:00:00 [facility] Influenza Virus 2019-02-11 Completed [facility] of Vaccine 00:00:00 [facility] Influenza Virus 2019-02-11 Completed [facility] of Vaccine 00:00:00 [facility] Influenza Virus 2019-02-11 Completed [facility] of Vaccine 00:00:00 [facility] Influenza Virus 2019-02-11 Completed [facility] of Vaccine 00:00:00 [facility] Influenza Virus 2019-02-11 Completed [facility] of Vaccine 00:00:00 [facility] Influenza Virus 2019-02-11 Completed [facility] of Vaccine 00:00:00 [facility] Influenza Virus 2019-02-11 Completed [facility] of Vaccine 00:00:00 [facility] Influenza Virus 2019-02-11 Completed [facility] of Vaccine 00:00:00 [facility] Influenza Virus 2019-02-11 Completed [facility] of Vaccine 00:00:00 [facility] Influenza Virus 2019-02-11 Completed [facility] of Vaccine 00:00:00 [facility] Influenza Virus 2019-02-11 Completed [facility] of Vaccine 00:00:00 [facility] Influenza Virus 2019-02-11 Completed [facility] of Vaccine 00:00:00 [facility] Influenza Virus 2019-02-11 Completed [facility] of Vaccine 00:00:00 [facility] Influenza Virus 2019-02-11 Completed [facility] of Vaccine 00:00:00 [facility] Influenza Virus 2019-02-11 Completed [facility] of Vaccine 00:00:00 [facility] Influenza Virus 2019-02-11 Completed [facility] of Vaccine 00:00:00 [facility] Influenza Virus 2019-02-11 Completed [facility] of Vaccine 00:00:00 [facility] Influenza Virus 2019-02-11 Completed [facility] of Vaccine 00:00:00 [facility] Influenza Virus 2019-02-11 Completed [facility] of Vaccine 00:00:00 [facility] Influenza Virus 2019-02-11 Completed [facility] of Vaccine 00:00:00 [facility] Influenza Virus 2019-02-11 Completed [facility] of Vaccine 00:00:00 [facility] Influenza Virus 2019-02-11 Completed [facility] of Vaccine 00:00:00 [facility] Influenza Virus 2019-02-11 Completed [facility] of Vaccine 00:00:00 [facility] Influenza Virus 2019-02-11 Completed [facility] of Vaccine 00:00:00 [facility] Influenza Virus 2019-02-11 Completed [facility] of Vaccine 00:00:00 [facility] Influenza Virus 2019-02-11 Completed [facility] of Vaccine 00:00:00 [facility] Influenza Virus 2017-12-25 Completed [facility] of Vaccine 00:00:00 [facility] Influenza Virus 2017-12-25 Completed [facility] of Vaccine 00:00:00 [facility] Influenza Virus 2017-12-25 Completed [facility] of Vaccine 00:00:00 [facility] Influenza Virus 2017-12-25 Completed [facility] of Vaccine 00:00:00 [facility] Influenza Virus 2017-12-25 Completed [facility] of Vaccine 00:00:00 [facility] Influenza Virus 2017-12-25 Completed [facility] of Vaccine 00:00:00 [facility] Influenza Virus 2017-12-25 Completed [facility] of Vaccine 00:00:00 [facility] Influenza Virus 2017-12-25 Completed [facility] of Vaccine 00:00:00 [facility] Influenza Virus 2017-12-25 Completed [facility] of Vaccine 00:00:00 [facility] Influenza Virus 2017-12-25 Completed [facility] of Vaccine 00:00:00 [facility] Influenza Virus 2017-12-25 Completed [facility] of Vaccine 00:00:00 [facility] Influenza Virus 2017-12-25 Completed [facility] of Vaccine 00:00:00 [facility] Influenza Virus 2017-12-25 Completed [facility] of Vaccine 00:00:00 [facility] Influenza Virus 2017-12-25 Completed [facility] of Vaccine 00:00:00 [facility] Influenza Virus 2017-12-25 Completed [facility] of Vaccine 00:00:00 [facility] Influenza Virus 2017-12-25 Completed [facility] of Vaccine 00:00:00 [facility] Influenza Virus 2017-12-25 Completed [facility] of Vaccine 00:00:00 [facility] Influenza Virus 2017-12-25 Completed [facility] of Vaccine 00:00:00 [facility] Influenza Virus 2017-12-25 Completed [facility] of Vaccine 00:00:00 [facility] Influenza Virus 2017-12-25 Completed [facility] of Vaccine 00:00:00 [facility] Influenza Virus 2017-12-25 Completed [facility] of Vaccine 00:00:00 [facility] Influenza Virus 2017-12-25 Completed [facility] of Vaccine 00:00:00 [facility] Influenza Virus 2017-12-25 Completed [facility] of Vaccine 00:00:00 [facility] Influenza Virus 2017-12-25 Completed [facility] of Vaccine 00:00:00 [facility] Influenza Virus 2017-12-25 Completed [facility] of Vaccine 00:00:00 [facility] Influenza Virus 2017-12-25 Completed [facility] of Vaccine 00:00:00 [facility] Influenza Virus 2017-12-25 Completed [facility] of Vaccine 00:00:00 [facility] Influenza Virus 2017-12-25 Completed [facility] of Vaccine 00:00:00 [facility] Influenza Virus 2017-12-25 Completed [facility] of Vaccine 00:00:00 [facility] Influenza Virus 2017-12-25 Completed [facility] of Vaccine 00:00:00 [facility] Influenza Virus 2017-12-25 Completed [facility] of Vaccine 00:00:00 [facility] Influenza Virus 2017-12-25 Completed [facility] of Vaccine 00:00:00 [facility] Influenza Virus 2017-12-25 Completed [facility] of Vaccine 00:00:00 [facility] Influenza Virus 2017-12-25 Completed [facility] of Vaccine 00:00:00 [facility] Influenza Virus 2017-12-25 Completed [facility] of Vaccine 00:00:00 [facility] Influenza Virus 2017-12-25 Completed [facility] of Vaccine 00:00:00 [facility] Influenza Virus 2017-12-25 Completed [facility] of Vaccine 00:00:00 [facility] Influenza Virus 2017-12-25 Completed [facility] of Vaccine 00:00:00 [facility] Influenza Virus 2017-12-25 Completed [facility] of Vaccine 00:00:00 [facility] Influenza Virus 2017-12-25 Completed [facility] of Vaccine 00:00:00 [facility] Influenza Virus 2017-12-25 Completed [facility] of Vaccine 00:00:00 [facility] Influenza Virus 2017-12-25 Completed [facility] of Vaccine 00:00:00 [facility] Influenza Virus 2017-12-25 Completed [facility] of Vaccine 00:00:00 [facility] Influenza Virus 2017-12-25 Completed [facility] of Vaccine 00:00:00 [facility] Influenza Virus 2017-12-25 Completed [facility] of Vaccine 00:00:00 [facility] Influenza Virus 2017-12-25 Completed [facility] of Vaccine 00:00:00 [facility] Influenza Virus 2017-12-25 Completed [facility] of Vaccine 00:00:00 [facility] Influenza Virus 2017-12-25 Completed [facility] of Vaccine 00:00:00 [facility] Influenza Virus 2017-12-25 Completed [facility] of Vaccine 00:00:00 [facility] Influenza Virus 2017-12-25 Completed [facility] of Vaccine 00:00:00 [facility] Influenza Virus 2017-12-25 Completed [facility] of Vaccine 00:00:00 [facility] Influenza Virus 2017-12-25 Completed [facility] of Vaccine 00:00:00 [facility] Influenza Virus 2017-12-25 Completed [facility] of Vaccine 00:00:00 [facility] Influenza Virus 2017-12-25 Completed [facility] of Vaccine 00:00:00 [facility] Influenza Virus 2017-12-25 Completed [facility] of Vaccine 00:00:00 [facility] Influenza Virus 2017-12-25 Completed [facility] of Vaccine 00:00:00 [facility] Influenza Virus 2017-12-25 Completed [facility] of Vaccine 00:00:00 [facility] Influenza Virus 2017-12-25 Completed [facility] of Vaccine 00:00:00 [facility] Influenza Virus 2014-01-17 Completed [facility] of Vaccine (3+ yrs) 00:00:00 [facility] Influenza Virus 2014-01-17 Completed [facility] of Vaccine (3+ yrs) 00:00:00 [facility] Influenza Virus 2014-01-17 Completed [facility] of Vaccine (3+ yrs) 00:00:00 [facility] Influenza Virus 2014-01-17 Completed [facility] of Vaccine (3+ yrs) 00:00:00 [facility] Influenza Virus 2014-01-17 Completed [facility] Vaccine (3+ yrs) 00:00:00 [facility] Influenza Virus 2014-01-17 Completed [facility] Vaccine (3+ yrs) 00:00:00 [facility] Influenza Virus 2014-01-17 Completed [facility] Vaccine (3+ yrs) 00:00:00 [facility] Influenza Virus 2014-01-17 Completed [facility] Vaccine (3+ yrs) 00:00:00 [facility] Influenza Virus 2014-01-17 Completed [facility] Vaccine (3+ yrs) 00:00:00 [facility] Influenza Virus 2014-01-17 Completed [facility] Vaccine (3+ yrs) 00:00:00 [facility] Influenza Virus 2014-01-17 Completed [facility] Vaccine (3+ yrs) 00:00:00 [facility] Influenza Virus 2014-01-17 Completed [facility] Vaccine (3+ yrs) 00:00:00 [facility] Influenza Virus 2014-01-17 Completed [facility] Vaccine (3+ yrs) 00:00:00 [facility] Influenza Virus 2014-01-17 Completed [facility] Vaccine (3+ yrs) 00:00:00 [facility] Influenza Virus 2014-01-17 Completed [facility] Vaccine (3+ yrs) 00:00:00 [facility] Influenza Virus 2014-01-17 Completed [facility] Vaccine (3+ yrs) 00:00:00 [facility] Influenza Virus 2014-01-17 Completed [facility] Vaccine (3+ yrs) 00:00:00 [facility] Influenza Virus 2014-01-17 Completed [facility] Vaccine (3+ yrs) 00:00:00 [facility] Influenza Virus 2014-01-17 Completed [facility] Vaccine (3+ yrs) 00:00:00 [facility] Influenza Virus 2014-01-17 Completed [facility] Vaccine (3+ yrs) 00:00:00 [facility] Influenza Virus 2014-01-17 Completed [facility] Vaccine (3+ yrs) 00:00:00 [facility] Influenza Virus 2014-01-17 Completed [facility] Vaccine (3+ yrs) 00:00:00 [facility] Influenza Virus 2014-01-17 Completed [facility] Vaccine (3+ yrs) 00:00:00 [facility] Influenza Virus 2014-01-17 Completed [facility] Vaccine (3+ yrs) 00:00:00 [facility] Influenza Virus 2014-01-17 Completed [facility] Vaccine (3+ yrs) 00:00:00 [facility] Influenza Virus 2014-01-17 Completed [facility] Vaccine (3+ yrs) 00:00:00 [facility] Influenza Virus 2014-01-17 Completed [facility] Vaccine (3+ yrs) 00:00:00 [facility] Influenza Virus 2014-01-17 Completed [facility] Vaccine (3+ yrs) 00:00:00 [facility] Influenza Virus 2014-01-17 Completed [facility] Vaccine (3+ yrs) 00:00:00 [facility] Influenza Virus 2014-01-17 Completed [facility] Vaccine (3+ yrs) 00:00:00 [facility] Influenza Virus 2014-01-17 Completed [facility] Vaccine (3+ yrs) 00:00:00 [facility] Influenza Virus 2014-01-17 Completed [facility] Vaccine (3+ yrs) 00:00:00 [facility] Influenza Virus 2014-01-17 Completed [facility] Vaccine (3+ yrs) 00:00:00 [facility] Influenza Virus 2014-01-17 Completed [facility] Vaccine (3+ yrs) 00:00:00 [facility] Influenza Virus 2014-01-17 Completed [facility] Vaccine (3+ yrs) 00:00:00 [facility] Influenza Virus 2014-01-17 Completed [facility] Vaccine (3+ yrs) 00:00:00 [facility] Influenza Virus 2014-01-17 Completed [facility] Vaccine (3+ yrs) 00:00:00 [facility] Influenza Virus 2014-01-17 Completed [facility] Vaccine (3+ yrs) 00:00:00 [facility] Influenza Virus 2014-01-17 Completed [facility] Vaccine (3+ yrs) 00:00:00 [facility] Influenza Virus 2014-01-17 Completed [facility] Vaccine (3+ yrs) 00:00:00 [facility] Influenza Virus 2014-01-17 Completed [facility] Vaccine (3+ yrs) 00:00:00 [facility] Influenza Virus 2014-01-17 Completed [facility] Vaccine (3+ yrs) 00:00:00 [facility] Influenza Virus 2014-01-17 Completed [facility] Vaccine (3+ yrs) 00:00:00 [facility] Influenza Virus 2014-01-17 Completed [facility] Vaccine (3+ yrs) 00:00:00 [facility] Influenza Virus 2014-01-17 Completed [facility] Vaccine (3+ yrs) 00:00:00 [facility] Influenza Virus 2014-01-17 Completed [facility] Vaccine (3+ yrs) 00:00:00 [facility] Influenza Virus 2014-01-17 Completed [facility] Vaccine (3+ yrs) 00:00:00 [facility] Influenza Virus 2014-01-17 Completed [facility] Vaccine (3+ yrs) 00:00:00 [facility] Influenza Virus 2014-01-17 Completed [facility] Vaccine (3+ yrs) 00:00:00 [facility] Influenza Virus 2014-01-17 Completed [facility] Vaccine (3+ yrs) 00:00:00 [facility] Influenza Virus 2014-01-17 Completed [facility] Vaccine (3+ yrs) 00:00:00 [facility] Influenza Virus 2014-01-17 Completed [facility] Vaccine (3+ yrs) 00:00:00 [facility] Influenza Virus 2014-01-17 Completed [facility] Vaccine (3+ yrs) 00:00:00 [facility] Influenza Virus 2014-01-17 Completed [facility] Vaccine (3+ yrs) 00:00:00 [facility] Influenza Virus 2014-01-17 Completed [facility] Vaccine (3+ yrs) 00:00:00 [facility] Influenza Virus 2014-01-17 Completed [facility] Vaccine (3+ yrs) 00:00:00 [facility] Influenza Virus 2014-01-17 Completed [facility] Vaccine (3+ yrs) 00:00:00 [facility] Influenza Virus 2014-01-17 Completed [facility] Vaccine (3+ yrs) 00:00:00 [facility] Influenza Virus 2013-03-15 Completed [facility] Vaccine (3+ yrs) 00:00:00 [facility] Influenza Virus 2013-03-15 Completed [facility] Vaccine (3+ yrs) 00:00:00 [facility] Influenza Virus 2013-03-15 Completed [facility] Vaccine (3+ yrs) 00:00:00 [facility] Influenza Virus 2013-03-15 Completed [facility] Vaccine (3+ yrs) 00:00:00 [facility] Influenza Virus 2013-03-15 Completed [facility] Vaccine (3+ yrs) 00:00:00 [facility] Influenza Virus 2013-03-15 Completed [facility] Vaccine (3+ yrs) 00:00:00 [facility] Influenza Virus 2013-03-15 Completed [facility] Vaccine (3+ yrs) 00:00:00 [facility] Influenza Virus 2013-03-15 Completed [facility] Vaccine (3+ yrs) 00:00:00 [facility] Influenza Virus 2013-03-15 Completed [facility] Vaccine (3+ yrs) 00:00:00 [facility] Influenza Virus 2013-03-15 Completed [facility] Vaccine (3+ yrs) 00:00:00 [facility] Influenza Virus 2013-03-15 Completed [facility] Vaccine (3+ yrs) 00:00:00 [facility] Influenza Virus 2013-03-15 Completed [facility] Vaccine (3+ yrs) 00:00:00 [facility] Influenza Virus 2013-03-15 Completed [facility] Vaccine (3+ yrs) 00:00:00 [facility] Influenza Virus 2013-03-15 Completed [facility] Vaccine (3+ yrs) 00:00:00 [facility] Influenza Virus 2013-03-15 Completed [facility] Vaccine (3+ yrs) 00:00:00 [facility] Influenza Virus 2013-03-15 Completed [facility] Vaccine (3+ yrs) 00:00:00 [facility] Influenza Virus 2013-03-15 Completed [facility] Vaccine (3+ yrs) 00:00:00 [facility] Influenza Virus 2013-03-15 Completed [facility] Vaccine (3+ yrs) 00:00:00 [facility] Influenza Virus 2013-03-15 Completed [facility] Vaccine (3+ yrs) 00:00:00 [facility] Influenza Virus 2013-03-15 Completed [facility] Vaccine (3+ yrs) 00:00:00 [facility] Influenza Virus 2013-03-15 Completed [facility] Vaccine (3+ yrs) 00:00:00 [facility] Influenza Virus 2013-03-15 Completed [facility] Vaccine (3+ yrs) 00:00:00 [facility] Influenza Virus 2013-03-15 Completed [facility] Vaccine (3+ yrs) 00:00:00 [facility] Influenza Virus 2013-03-15 Completed [facility] Vaccine (3+ yrs) 00:00:00 [facility] Influenza Virus 2013-03-15 Completed [facility] Vaccine (3+ yrs) 00:00:00 [facility] Influenza Virus 2013-03-15 Completed [facility] Vaccine (3+ yrs) 00:00:00 [facility] Influenza Virus 2013-03-15 Completed [facility] Vaccine (3+ yrs) 00:00:00 [facility] Influenza Virus 2013-03-15 Completed [facility] Vaccine (3+ yrs) 00:00:00 [facility] Influenza Virus 2013-03-15 Completed [facility] Vaccine (3+ yrs) 00:00:00 [facility] Influenza Virus 2013-03-15 Completed [facility] Vaccine (3+ yrs) 00:00:00 [facility] Influenza Virus 2013-03-15 Completed [facility] Vaccine (3+ yrs) 00:00:00 [facility] Influenza Virus 2013-03-15 Completed [facility] Vaccine (3+ yrs) 00:00:00 [facility] Influenza Virus 2013-03-15 Completed [facility] Vaccine (3+ yrs) 00:00:00 [facility] Influenza Virus 2013-03-15 Completed [facility] Vaccine (3+ yrs) 00:00:00 [facility] Influenza Virus 2013-03-15 Completed [facility] Vaccine (3+ yrs) 00:00:00 [facility] Influenza Virus 2013-03-15 Completed [facility] Vaccine (3+ yrs) 00:00:00 [facility] Influenza Virus 2013-03-15 Completed [facility] Vaccine (3+ yrs) 00:00:00 [facility] Influenza Virus 2013-03-15 Completed [facility] Vaccine (3+ yrs) 00:00:00 [facility] Influenza Virus 2013-03-15 Completed [facility] Vaccine (3+ yrs) 00:00:00 [facility] Influenza Virus 2013-03-15 Completed [facility] Vaccine (3+ yrs) 00:00:00 [facility] Influenza Virus 2013-03-15 Completed [facility] Vaccine (3+ yrs) 00:00:00 [facility] Influenza Virus 2013-03-15 Completed [facility] Vaccine (3+ yrs) 00:00:00 [facility] Influenza Virus 2013-03-15 Completed [facility] Vaccine (3+ yrs) 00:00:00 [facility] Influenza Virus 2013-03-15 Completed [facility] Vaccine (3+ yrs) 00:00:00 [facility] Influenza Virus 2013-03-15 Completed [facility] Vaccine (3+ yrs) 00:00:00 [facility] Influenza Virus 2013-03-15 Completed [facility] Vaccine (3+ yrs) 00:00:00 [facility] Influenza Virus 2013-03-15 Completed [facility] Vaccine (3+ yrs) 00:00:00 [facility] Influenza Virus 2013-03-15 Completed [facility] Vaccine (3+ yrs) 00:00:00 [facility] Influenza Virus 2013-03-15 Completed [facility] Vaccine (3+ yrs) 00:00:00 [facility] Influenza Virus 2013-03-15 Completed [facility] Vaccine (3+ yrs) 00:00:00 [facility] Influenza Virus 2013-03-15 Completed [facility] Vaccine (3+ yrs) 00:00:00 [facility] Influenza Virus 2013-03-15 Completed [facility] Vaccine (3+ yrs) 00:00:00 [facility] Influenza Virus 2013-03-15 Completed [facility] Vaccine (3+ yrs) 00:00:00 [facility] Influenza Virus 2013-03-15 Completed [facility] Vaccine (3+ yrs) 00:00:00 [facility] Influenza Virus 2013-03-15 Completed [facility] Vaccine (3+ yrs) 00:00:00 [facility] Influenza Virus 2013-03-15 Completed [facility] Vaccine (3+ yrs) 00:00:00 [facility] Influenza Virus 2013-03-15 Completed [facility] Vaccine (3+ yrs) 00:00:00 [facility] Influenza Virus 2013-03-15 Completed [facility] Vaccine (3+ yrs) 00:00:00 [facility] Influenza Virus 2012-03-02 Completed [facility] Vaccine 00:00:00 [facility] Influenza Virus 2012-03-02 Completed [facility] Vaccine 00:00:00 [facility] Influenza Virus 2012-03-02 Completed [facility] Vaccine 00:00:00 [facility] Influenza Virus 2012-03-02 Completed [facility] Vaccine 00:00:00 [facility] Influenza Virus 2012-03-02 Completed [facility] Vaccine 00:00:00 [facility] Influenza Virus 2012-03-02 Completed [facility] Vaccine 00:00:00 [facility] Influenza Virus 2012-03-02 Completed [facility] Vaccine 00:00:00 [facility] Influenza Virus 2012-03-02 Completed [facility] Vaccine 00:00:00 [facility] Influenza Virus 2012-03-02 Completed [facility] Vaccine 00:00:00 [facility] Influenza Virus 2012-03-02 Completed [facility] Vaccine 00:00:00 [facility] Influenza Virus 2012-03-02 Completed [facility] Vaccine 00:00:00 [facility] Influenza Virus 2012-03-02 Completed [facility] Vaccine 00:00:00 [facility] Influenza Virus 2012-03-02 Completed [facility] Vaccine 00:00:00 [facility] Influenza Virus 2012-03-02 Completed [facility] Vaccine 00:00:00 [facility] Influenza Virus 2012-03-02 Completed [facility] Vaccine 00:00:00 [facility] Influenza Virus 2012-03-02 Completed [facility] Vaccine 00:00:00 [facility] Influenza Virus 2012-03-02 Completed [facility] Vaccine 00:00:00 [facility] Influenza Virus 2012-03-02 Completed [facility] Vaccine 00:00:00 [facility] Influenza Virus 2012-03-02 Completed [facility] Vaccine 00:00:00 [facility] Influenza Virus 2012-03-02 Completed [facility] Vaccine 00:00:00 [facility] Influenza Virus 2012-03-02 Completed [facility] Vaccine 00:00:00 [facility] Influenza Virus 2012-03-02 Completed [facility] Vaccine 00:00:00 [facility] Influenza Virus 2012-03-02 Completed [facility] Vaccine 00:00:00 [facility] Influenza Virus 2012-03-02 Completed [facility] Vaccine 00:00:00 [facility] Influenza Virus 2012-03-02 Completed [facility] Vaccine 00:00:00 [facility] Influenza Virus 2012-03-02 Completed [facility] Vaccine 00:00:00 [facility] Influenza Virus 2012-03-02 Completed [facility] Vaccine 00:00:00 [facility] Influenza Virus 2012-03-02 Completed [facility] Vaccine 00:00:00 [facility] Influenza Virus 2012-03-02 Completed [facility] Vaccine 00:00:00 [facility] Influenza Virus 2012-03-02 Completed [facility] Vaccine 00:00:00 [facility] Influenza Virus 2012-03-02 Completed [facility] Vaccine 00:00:00 [facility] Influenza Virus 2012-03-02 Completed [facility] Vaccine 00:00:00 [facility] Influenza Virus 2012-03-02 Completed [facility] Vaccine 00:00:00 [facility] Influenza Virus 2012-03-02 Completed [facility] Vaccine 00:00:00 [facility] Influenza Virus 2012-03-02 Completed [facility] Vaccine 00:00:00 [facility] Influenza Virus 2012-03-02 Completed [facility] Vaccine 00:00:00 [facility] Influenza Virus 2012-03-02 Completed [facility] Vaccine 00:00:00 [facility] Influenza Virus 2012-03-02 Completed [facility] Vaccine 00:00:00 [facility] Influenza Virus 2012-03-02 Completed [facility] Vaccine 00:00:00 [facility] Influenza Virus 2012-03-02 Completed [facility] Vaccine 00:00:00 [facility] Influenza Virus 2012-03-02 Completed [facility] Vaccine 00:00:00 [facility] Influenza Virus 2012-03-02 Completed [facility] Vaccine 00:00:00 [facility] Influenza Virus 2012-03-02 Completed [facility] Vaccine 00:00:00 [facility] Influenza Virus 2012-03-02 Completed [facility] Vaccine 00:00:00 [facility] Influenza Virus 2012-03-02 Completed [facility] Vaccine 00:00:00 [facility] Influenza Virus 2012-03-02 Completed [facility] Vaccine 00:00:00 [facility] Influenza Virus 2012-03-02 Completed [facility] Vaccine 00:00:00 [facility] Influenza Virus 2012-03-02 Completed [facility] Vaccine 00:00:00 [facility] Influenza Virus 2012-03-02 Completed [facility] Vaccine 00:00:00 [facility] Influenza Virus 2012-03-02 Completed [facility] Vaccine 00:00:00 [facility] Influenza Virus 2012-03-02 Completed [facility] Vaccine 00:00:00 [facility] Influenza Virus 2012-03-02 Completed [facility] Vaccine 00:00:00 [facility] Influenza Virus 2012-03-02 Completed [facility] Vaccine 00:00:00 [facility] Influenza Virus 2012-03-02 Completed [facility] Vaccine 00:00:00 [facility] Influenza Virus 2012-03-02 Completed [facility] Vaccine 00:00:00 [facility] Influenza Virus 2012-03-02 Completed [facility] Vaccine 00:00:00 [facility] Influenza Virus 2012-03-02 Completed [facility] Vaccine 00:00:00 [facility] Influenza Virus 2012-03-02 Completed [facility] Vaccine 00:00:00 [facility] Pneumococcal 7 2012-01-27 Completed [facility] Conjugate, PCV7 00:00:00 [facility] Pneumococcal 7 2012-01-27 Completed [facility] Conjugate, PCV7 00:00:00 [facility] Pneumococcal 7 2012-01-27 Completed [facility] Conjugate, PCV7 00:00:00 [facility] Pneumococcal 7 2012-01-27 Completed [facility] Conjugate, PCV7 00:00:00 [facility] Pneumococcal 7 2012-01-27 Completed [facility] Conjugate, PCV7 00:00:00 [place] [facility] Pneumococcal 7 2012-01-27 Completed [facility] Conjugate, PCV7 00:00:00 [place] [facility] Pneumococcal 7 2012-01-27 Completed [facility] Conjugate, PCV7 00:00:00 [facility] Pneumococcal 7 2012-01-27 Completed [facility] Conjugate, PCV7 00:00:00 [facility] Pneumococcal 7 2012-01-27 Completed [facility] Conjugate, PCV7 00:00:00 [facility] Pneumococcal 7 2012-01-27 Completed [facility] Conjugate, PCV7 00:00:00 [place] [facility] Pneumococcal 7 2012-01-27 Completed [facility] Conjugate, PCV7 00:00:00 [facility] Pneumococcal 7 2012-01-27 Completed [facility] Conjugate, PCV7 00:00:00 [place] [facility] Pneumococcal 7 2012-01-27 Completed [facility] Conjugate, PCV7 00:00:00 [place] [facility] Pneumococcal 7 2012-01-27 Completed [facility] Conjugate, PCV7 00:00:00 [place] [facility] Pneumococcal 7 2012-01-27 Completed [facility] Conjugate, PCV7 00:00:00 [place] [facility] Pneumococcal 7 2012-01-27 Completed [facility] Conjugate, PCV7 00:00:00 [place] [facility] Pneumococcal 7 2012-01-27 Completed [facility] Conjugate, PCV7 00:00:00 [place] [facility] Pneumococcal 7 2012-01-27 Completed [facility] Conjugate, PCV7 00:00:00 [place] [facility] Pneumococcal 7 2012-01-27 Completed [facility] Conjugate, PCV7 00:00:00 [place] [facility] Pneumococcal 7 2012-01-27 Completed [facility] Conjugate, PCV7 00:00:00 [place] [facility] Pneumococcal 7 2012-01-27 Completed [facility] Conjugate, PCV7 00:00:00 [place] [facility] Pneumococcal 7 2012-01-27 Completed [facility] Conjugate, PCV7 00:00:00 [place] [facility] Pneumococcal 7 2012-01-27 Completed [facility] Conjugate, PCV7 00:00:00 [place] [facility] Pneumococcal 7 2012-01-27 Completed [facility] Conjugate, PCV7 00:00:00 [place] [facility] Pneumococcal 7 2012-01-27 Completed [facility] Conjugate, PCV7 00:00:00 [place] [facility] Pneumococcal 7 2012-01-27 Completed [facility] Conjugate, PCV7 00:00:00 [place] [facility] Pneumococcal 7 2012-01-27 Completed [facility] Conjugate, PCV7 00:00:00 [place] [facility] Pneumococcal 7 2012-01-27 Completed [facility] Conjugate, PCV7 00:00:00 [place] [facility] Pneumococcal 7 2012-01-27 Completed [facility] Conjugate, PCV7 00:00:00 [place] [facility] Pneumococcal 7 2012-01-27 Completed [facility] Conjugate, PCV7 00:00:00 [place] [facility] Pneumococcal 7 2012-01-27 Completed [facility] Conjugate, PCV7 00:00:00 [place] [facility] Pneumococcal 7 2012-01-27 Completed [facility] Conjugate, PCV7 00:00:00 [place] [facility] Pneumococcal 7 2012-01-27 Completed [facility] Conjugate, PCV7 00:00:00 [place] [facility] Pneumococcal 7 2012-01-27 Completed [facility] Conjugate, PCV7 00:00:00 [place] [facility] Pneumococcal 7 2012-01-27 Completed [facility] Conjugate, PCV7 00:00:00 [place] [facility] Pneumococcal 7 2012-01-27 Completed [facility] Conjugate, PCV7 00:00:00 [place] [facility] Pneumococcal 7 2012-01-27 Completed [facility] Conjugate, PCV7 00:00:00 [place] [facility] Pneumococcal 7 2012-01-27 Completed [facility] Conjugate, PCV7 00:00:00 [place] [facility] Pneumococcal 7 2012-01-27 Completed [facility] Conjugate, PCV7 00:00:00 [place] [facility] Pneumococcal 7 2012-01-27 Completed [facility] Conjugate, PCV7 00:00:00 [place] [facility] (Prevnar7) [facility] Pneumococcal 7 2012-01-27 Completed University of Conjugate, PCV7 00:00:00 [place] [facility] (Prevnar7) [facility] Pneumococcal 7 2012-01-27 Completed University of Conjugate, PCV7 00:00:00 [place] [facility] (Prevnar7) [facility] Pneumococcal 7 2012-01-27 Completed University of Conjugate, PCV7 00:00:00 [place] [facility] (Prevnar7) [facility] Pneumococcal 7 2012-01-27 Completed University of Conjugate, PCV7 00:00:00 [place] [facility] (Prevnar7) [facility] Pneumococcal 7 2012-01-27 Completed University of Conjugate, PCV7 00:00:00 [place] [facility] (Prevnar7) [facility] Pneumococcal 7 2012-01-27 Completed University of Conjugate, PCV7 00:00:00 [place] [facility] (Prevnar7) [facility] Pneumococcal 7 2012-01-27 Completed University of Conjugate, PCV7 00:00:00 [place] [facility] (Pre[facility]ar[facility]) [facility] Pneumococcal 7 2012-01-27 Completed University of Conjugate, PCV7 00:00:00 [place] [facility] (Prevnar7) [facility] Pneumococcal 7 2012-01-27 Completed University of Conjugate, PCV7 00:00:00 [place] [facility] (Prevnar7) [facility] Pneumococcal 7 2012-01-27 Completed University of Conjugate, PCV7 00:00:00 [place] [facility] (Prevnar7) [facility] Pneumococcal 7 2012-01-27 Completed University of Conjugate, PCV7 00:00:00 [place] [facility] (Prevnar7) [facility] Pneumococcal 7 2012-01-27 Completed University of Conjugate, PCV7 00:00:00 [place] [facility] (Prevnar7) [facility] Pneumococcal 7 2012-01-27 Completed University of Conjugate, PCV7 00:00:00 [place] [facility] (Prevnar7) [facility] Pneumococcal 7 2012-01-27 Completed University of Conjugate, PCV7 00:00:00 [place] [facility] (Prevnar[facility]) [facility] Pneumococcal 7 2012-01-27 Completed University of Conjugate, PCV7 00:00:00 [place] [facility] (Prevnar7) [facility] Pneumococcal 7 2012-01-27 Completed University of Conjugate, PCV7 00:00:00 [place] [facility] (Prevnar7) [facility] Pneumococcal 7 2012-01-27 Completed University of Conjugate, PCV7 00:00:00 [place] [facility] (Pre[facility]ar[facility] Pneumococcal 7 2012-01-27 Completed University of Conjugate, PCV7 00:00:00 [place] [facility] (Pre[facility] Vital Signs Vital Name Observation Time Observation Value Comments Source Body height 2022-05-16 14:43:00 177.8 cm [facility] Systolic blood 2022-05-07 16:21:00 136 mm[Hg] Univer sity of [facility] Diastolic blood 2022-05-07 16:21:00 72 mm[Hg] Unive rsity of [facility] Heart rate 2022-05-07 15:42:00 85 /min [facility] Body temperature 2022-05-07 15:42:00 35.94 Cris Univ [facility] Respiratory rate 2022-05-07 15:42:00 18 /min Univ [facility] Body height 2022-05-07 15:42:00 177.8 cm [facility] Body weight 2022-05-07 15:42:00 93.895 kg [facility] BMI 2022-05-07 15:42:00 29.70 kg/m2 Universi ty of [facility] Oxygen saturation in 2022-05-07 15:42:00 97 /min University of Arterial blood by [facility] Pulse oximetry Branch Systolic blood 2022-03-12 21:48:00 145 mm[Hg] Univer sity of [facility] Diastolic blood 2022-03-12 21:48:00 71 mm[Hg] Unive rsity of [facility] Heart rate 2022-03-12 21:47:00 71 /min [facility] Body temperature 2022-03-12 21:47:00 36.5 Cris Univ [facility] Body weight 2022-03-12 21:47:00 94.575 kg [facility] BMI 2022-03-12 21:47:00 30.79 kg/m2 [facility] Systolic blood 2022-02-04 16:30:00 147 mm[Hg] Univer sity [facility] Diastolic blood 2022-02-04 16:30:00 83 mm[Hg] Unive rsity of [facility] Heart rate 2022-02-04 16:29:00 82 /min [facility] Respiratory rate 2022-02-04 16:29:00 18 /min Univ ers[facility] Body height 2022-02-04 16:29:00 175.3 cm [facility] Body weight 2022-02-04 16:29:00 90.266 kg [facility] [place] [facility] BMI 2022-02-04 16:29:00 29.39 kg/m2 [facility] [place] [facility] Oxygen saturation in 2022-02-04 16:29:00 97 /min University of Arterial blood by [facility] Pulse oximetry Branch Systolic blood 2022-01-28 15:28:00 145 mm[Hg] Univer sity of [facility] Diastolic blood 2022-01-28 15:28:00 88 mm[Hg] Unive rsity of [facility] Heart rate 2022-01-28 15:28:00 74 /min [facility] Oxygen saturation in 2022-01-28 15:28:00 99 /min University of Arterial blood by [facility] Pulse oximetry Branch Body temperature 2022-01-28 15:27:00 36.67 Cris [facility] ersity of [facility] Respiratory rate 2022-01-28 15:27:00 16 /min Univ ers[facility] Body height 2022-01-28 15:27:00 175.3 cm [facility] Body weight 2022-01-28 15:27:00 93.94 kg [facility] [place] [facility] BMI 2022-01-28 15:27:00 30.58 kg/m2 [facility] [place] [facility] Systolic blood 2021-12-26 19:54:00 133 mm[Hg] Univer sity of [facility] Diastolic blood 2021-12-26 19:54:00 67 mm[Hg] Unive rsity of [facility] Body height 2021-12-26 19:52:00 175.3 cm [facility] Body weight 2021-12-26 19:52:00 91.853 kg [facility] [place] [facility] BMI 2021-12-26 19:52:00 29.90 kg/m2 [facility] [place] [facility] Oxygen saturation in 2021-12-26 19:52:00 94 /min University of Arterial blood by [facility] Pulse oximetry Branch Heart rate 2021-12-26 19:52:00 94 /min [facility] Body temperature 2021-12-26 19:52:[address] [facility] Respiratory rate 2021-12-26 19:52:00 18 /min [facility] Procedures Procedure Date / Time Performing Clinician Source Performed PHOSPHORUS 2022-05-30 15:16:00 [place] Jolly [facility] MAGNESIUM 2022-05-30 15:16:00 [facility] BASIC METABOLIC PANEL (NA, 2022-05-30 15:16:00 [place] [facility], CL, CO2, GLUCOSE, BUN, Medica l Branch CREATININE, CA) CBC WITH DIFF 2022-05-30 15:16:00 [facility]anae [facility] URINALYSIS 2022-05-30 15:16:00 Shanae [facility] ASSIGNMENT OF BENEFITS 2022-05-07 15:21:38 [facility] [place] [facility] ABDOMEN PELVIS W WO 2022-04-15 15:44:59 Sendy Doty [facility] CONTRAST [facility] [place] CONSENT/REFUSAL FOR 2022-04-15 14:49:13 Doctor Unassigned, [facility] DIAGNOSIS AND TREATMENT [place] [facility] ASSIGNMENT OF BENEFITS 2022-04-15 14:49:01 Doctor Unassigned, [facility] [place] URINALYSIS 2022-04-10 16:14:00 [place] J[place] [facility] URINE CULTURE 2022-04-10 16:14:00 [facility] PROTEIN CREAT RATIO URINE 2022-04-10 16:14:00 [place] J[place] [facility] RANDOM Medical Branch PHOSPHORUS 2022-04-10 16:01:00 [facility] MAGNESIUM 2022-04-10 16:01:00 [place] [facility] BASIC METABOLIC PANEL (NA, 2022-04-10 16:01:00 [place] [facility] K, CL, CO2, GLUCOSE, BUN, Medica l Branch CREATININE, [place]) TACROLIMUS, LEVEL 2022-04-10 16:01:00 Shanae [facility] CBC WITH DIFF 2022-04-10 16:01:00 Shanae [facility] BK VIRUS QUANT 2022-04-10 16:01:00 Sendy Doty [facility] N [facility] EXTERNAL DD-CFDNA 2022-04-10 06:00:00 Katarzyna [facility] FLU 2022-04-01 17:57:26 Abner Rivera [facility] VACC(),65+YR,0.5 Medica l Branch ML,IM,ADJUVANTED,QUAD(FLUA D) POCT GRP A STREP 2022-03-12 22:00:00 Junior Garcia [facility] (MOLECULAR) [facility] DERMATOPATHOLOGY TISSUE 2022-02-26 00:00:00 Kurtis Kirk [facility] EXAM [facility] POCT HEMOGLOBIN A1C TEST 2022-02-04 17:03:00 Junior Garcia [facility] SARS-COV-2 COVID-19 2022-02-04 16:37:53 Doctor Unassigned, [facility] VACCINE 18 YRS+, BIVALENT [place] [facility] 0.5ML, IM (MODERNA BOOSTER) URINALYSIS 2022-01-24 19:12:00 [facility]e [facility] CBC WITH DIFF 2022-01-24 19:01:00 Shanae [facility] PHOSPHORUS 2022-01-24 17:20:00 Shanae [facility] MAGNESIUM 2022-01-24 17:20:00 Shanae [facility] COMP. METABOLIC PANEL 2022-01-24 17:20:00 Abner Rivera [facility] ([id number]) [facility] HEPATITIS C VIRUS (HCV) BY 2022-01-24 17:20:00 Abner Rivera [facility] QUANTITATIVE NAAT [facility] TACROLIMUS, LEVEL 2022-01-24 17:19:00 Shanae [facility] PROTEIN CREAT RATIO URINE 2022-01-24 17:15:00 [place] Jolly iversity [facility] TOTAL PROTEIN, URINE 2022-01-24 17:15:00 [place] Jolly Univers ity [facility] MEDICATION CORRESPONDENCE 2022-01-14 05:01:00 Doctor Unassigned, [facility] [place] [facility] Branch Encounters Start End Encounter Admission Attending Care Care Encounter Source Date/Time Date/Time Type Type Clinicians Facility Department ID 2021-02-26 Outpatient R JL [facility] [id number] Univers 05:42:45 JASMYNE [facility] 2022-09-17 2022-09-17 Outpatient R NICOLE [facility] [id number] Univers 14:40:00 14:40:00 ABNER [facility] 2022-06-14 2022-06-14 [facility] 1.2.818.010 [id number] Univers 00:00:00 00:00:00 [facility] HEALTH 350.1.13.10 it y of [place] 4.2.7.2.686 [facility] [id number] [address] ([facility]) 2022-06-13 2022-06-13 Case Kurtis Kirk [facility] 1.2.840.114 [id number] Univers 00:00:00 00:00:00 Management MULTISPEC 350.1.13.10 ity of [place] 4.2.7.[address] [place] [id number] [facility] 2022-06-11 2022-06-11 Telephone Kurtis Kirk [facility] 1.2.840.114 [id number] Univers 00:00:00 00:00:00 MULTISPEC 350.1.13.10 ity of [place] 4.2.7.2.[address] [place] [id number] [facility]ES [facility]INIC 2022-06-04 2022-06-04 Telephone Shelbie [facility] 1.2.840.114 [id number] Univers 00:00:00 00:00:00 Katarzyna Damon MULTISPEC 350.1.13.10 ity of IAL[place] 4.2[address] [facility] [id number] [facility] AND [address] DIABETES CLINIC 2022-06-03 2022-06-03 Outpatient R WILL [facility] [id number] Univers 09:40:00 09:40:00 SENDY DUNBAR ity [facility] 2022-06-03 2022-06-[address] [facility] 1.2.840.114 [id number] Univers 00:00:00 00:00:00 Colón A MULTISPEC 350.1.13.10 [place] [id number] [address] [facility]ES CLINIC 2022-06-02 2022-06-[address] [facility] 1.2.840.114 [id number] Univers 00:00:00 00:00:00 Colón A MULTISPEC 350.1.13.10 it[place].2.686 [place] [id number] [address] [facility]ES CLINIC 2022-05-30 2022-05-30 [employer] Lab, Ang - Db [facility] 1.2.840.1 [id number] Univers 08:30:00 09:35:01 Visit Abner Rivera [facility] 350.1.13.10 ity of [place] 4.2.7.2.686 Gordon as LUDWIN?BLEA [id number] Dc [address] MEDICAL OFFICE BUILDING 2022-05-30 2022-05-30 Outpatient R NICOLE [facility] [id number] Univers 08:30:00 08:30:00 ABNER [facility] 2022-05-16 2022-05-16 Office Kurtis Kirk [facility] 1.2.840.114 [id number] Univers 09:00:00 09:00:00 Visit MULTISPEC 350.1.13.10 it[place] of [place]2.[place]2.686 [place] [id number] [address] [facility]ES [facility]INIC 2022-05-16 2022-05-16 Outpatient R KURTIS KIRK [facility] [id number] Univers 09:00:00 08:56:34 KURTIS KIRK y of [facility] 2022-05-15 2022-05-15 Outpatient R DEREK, [facility] [id number] Univers 13:20:00 13:20:00 TOMEKA norris [facility] 2022-05-15 2022-05-15 Outpatient R DEREK, [facility] [id number] Univers 13:20:00 13:20:00 TOMEKA prasad o [facility] 2022-05-15 2022-05-15 Outpatient R DEREK, [facility] [id number] Univers 13:20:00 13:20:00 TOMEKA prasad o [facility] 2022-05-15 2022-05-15 Outpatient R DEREK, [facility] [id number] Univers 13:20:00 13:20:00 TOMEKA norris [facility] 2022-05-15 2022-05-15 Outpatient R DEREK, [facility] [id number] Univers 13:20:00 13:20:00 TOMEKA norris [facility] 2022-05-15 2022-05-15 Outpatient R DEREK, [facility] [id number] Univers 13:20:00 13:20:00 TOMEKA norris [facility] 2022-05-07 2022-05-07 Outpatient R JOSE, PANKAJJACINDA [facility] [id number] Univers 09:30:00 10:23:01 JUNIOR GARCIA ity of [facility] 2022-05-07 2022-05-07 [facility] 1.2.840.114 [id number] Univers 09:30:00 10:23:01 Visit Junior CAZARES 350.1.13.10 ity of [facility] 4.2.7.2.686 Luis MIR [id number] [address] 2022-05-07 2022-05-07 Orders Doctor VELIA 1.2.840.114 [id number] Univers 00:00:00 00:00:00 Only Unassigned, SANDRA 350.1.13.10 [place]y of [place] [facility] 4.2.7.2.686 Gordon as [id number] [facility] 009 Branch 2022-04-25 2022-04-[address] [facility] 1.2.840.114 [id number] Univers 00:00:00 00:00:00 Colón Nelson MULTISPEC 350.1.13.10 ity of [facility] 4.2.7.2.686 [place] [id number] [facility] AND [address] DIABETES CLINIC 2022-04-17 2022-04-[address] [facility] 1.2.665.839 [id number] Univers 00:00:00 00:00:00 Colón Nelson MULTISPEC 350.1.13.10 ity of [facility] 4.2.7.2.[address] [facility] [place] [id number] [facility] AND [address] DIABETES CLINIC 2022-04-15 2022-04-15 Outpatient R [facility] [id number] Univers 08:49:40 23:59:00 SENDY DUNBAR ity [facility] 2022-04-15 2022-04-15 [facility] 1.2.840.114 [id number] Univers 08:49:40 23:59:00 Encounter Sendy dunbar 350.1.13.10 ity of [place] 4.2.7.2.686 [place] [id number] [facility] 801 Branch 2022-04-15 2022-04-15 Telephone Shanae [facility] 1.2.840.114 [id number] Univers 00:00:00 00:00:00 HEALTH 350.1.13.10 it [place] of [place].2.7.2.686 [place] [id number] Dc dicne T [place] 189 Branch 2022-04-15 2022-04-15 Refill Shanae [facility] 1.2.840.114 [id number] Univers 00:00:00 00:00:00 HEALTH 350.1.13.10 it [place] 4.2.7.2.686 [place] [id number] Dc dical T CENTER 189 Branch 2022-04-10 2022-04-10 [employer] 2, [facility] 1.2.840.114 [id number] Univers 10:00:00 13:03:31 Visit Padmaja Emerson 350.1.13.10 it[place] of [place] 4.2.7.2.686 [place] [id number] Dc dical NAL 353 [facility] 2022-04-10 2022-04-10 Outpatient R JOHNNY [facility] [id number] Univers 10:00:00 10:00:00 PADMAJA [facility] 2022-04-05 2022-04-05 Telephone Shelbie [facility] 1.2.840.114 [id number] Univers 00:00:00 00:00:00 Katarzyna Damon MULTISPEC 350.1.13.10 ity of [place]2.7.2.[place] [address] [id number] [facility] [address] [facility] 2022-04-04 2022-04-04 Telephone [facility] 1.2.840.114 [id number] Univers 00:00:00 00:00:00 MULTISPEC 350.1.13.10 ity of [place]2.7.2.[place] [address] [id number] [facility] [address] [facility] 2022-04-01 2022-04-01 Nurse Nurse, [facility] Fam [facility] 1.2.840.114 [id number] Univers 14:20:00 14:40:00 Visit Sendy Doty 350.1. 13.10 it[place] of [place] 4.2.7.2.686 [place] [id number] Dc dical NAL 044 [facility] 2022-04-01 2022-04-01 Outpatient R WILL [facility] [id number] Univers 14:20:00 14:20:00 SENDY DUNBAR [facility] 2022-04-01 2022-04-01 [employer], [facility] 1.2.840.114 [id number] Univers 11:30:00 11:45:00 Visit Sendy Doty 350.1. 13.10 it[place] of [place] 4.2.7.2.686 [place] [id number] Dc dical NAL 353 [facility] 2022-04-01 2022-04-01 [facility] 1.2.840.114 [id number] Univers 00:00:00 00:00:00 Abner CAZARES 350.1.13.10 i ty of [facility] 4.2.7.2.686 [place] [id number] Dc dical NAL 044 [facility] 2022-03-28 2022-03-28 [facility] 1.2.840.114 [id number] Univers 00:00:00 00:00:00 Abner CAZARES 350.1.13.10 i ty of [facility] 4.2.7.2.686 [place] [id number] Dc dical NAL 044 [facility] 2022-03-22 2022-03-22 [facility] 1.2.840.114 [id number] Univers 00:00:00 00:00:00 Abner CAZARES 350.1.13.10 i ty of [facility] 4.2.7.2.686 [place] [id number] Dc dical NAL 044 [facility] 2022-03-22 2022-03-22 [facility] 1.2.840.114 [id number] Univers 00:00:00 00:00:00 Parminder Hudson MULTISPEC 350.1.13.10 ity of [place] 4.2.7.2.686 [place] [id number] [facility] AND [place] [address] Branch DIABETES CLINIC 2022-03-14 2022-03-14 [facility] 1.2.840.114 [id number] Univers 00:00:00 00:00:00 Abner CAZARES 350.1.13.10 i ty of [place] 4.2.7.2.686 [place] [id number] Dc dical NAL 044 [facility] 2022-03-13 2022-03-13 Telephone [place] Jolly [facility] 1.2.840.114 [id number] Univers 00:00:00 00:00:00 MULTISPEC 350.1.13.10 [place]2.7.2.686 [place] [id number] [address] DIABETES CLINIC 2022-03-12 2022-03-12 Outpatient R JUNIOR GARCIA [facility] [id number] Univers 15:30:00 16:12:38 JUNIOR GARCIA ity of [facility] 2022-03-12 2022-03-12 Office Jose [facility] 1.2.840.114 [id number] Univers 15:30:00 16:12:38 Visit Junior CAZARES 350.1.13.10 ity of [place] 4.2.7.2.686 [place] [id number] Dc dical NAL 044 [facility] 2022-03-12 2022-03-12 [employer], Adc Lab [facility] 1.2.840.114 [id number] Univers 14:30:00 14:45:00 Visit [place] JollyHAMIDA 350.1.13.10 ity of [facility] 4.2.7.2.686 [place] [id number] Dc dical NAL 353 [facility] 2022-02-26 2022-02-26 Outpatient R KURTIS KIRK [facility] [id number] Univers 09:00:00 13:35:11 KURTIS KIRK it y of [facility] 2022-02-26 2022-02-26 Office Kurtis Kirk [facility] 1.2.840.114 [id number] Univers 09:00:00 13:35:11 Visit MULTISPEC 350.1.13.10 ity of IALTY 4.2.7.2[address] [facility] [place] [id number] [address] DIABETES CLINIC 2022-02-08 2022-02-08 Ana Logan [facility] 1.2.840.114 [id number] Univers 00:00:00 00:00:00 Wondiful A HEALTH 350.1.13.10 ity of [place] 4.2.7.2.686 [place] as LUDWIN?BLEA [id number] Dc radha NORIEGAEY [address] [place] [address] OFFICE [facility] 2022-02-04 2022-02-04 Imm/Inj Vaccine, [facility] 1.2.840.114 [id number] Univers 13:00:00 13:10:00 Visit Nicole Abner SAGE 350.1.13.10 ity of [facility] 4.2.7.2.686 [place] [id number] Dc radha NAL [address] [place] [address] 2022-02-04 2022-02-04 Outpatient R JUNIOR GARCIA [facility] [id number] Univers 11:30:00 12:05:54 JUNIOR GARCIA [facility] 2022-02-04 2022-02-04 [facility] 1.2.840.114 [id number] Univers 11:30:00 12:05:54 Visit Javonthelma KATALINAHAMIDA 350.1.13.10 ity [facility] 4.2.7.2.686 [place] [id number] Dc radha BETTS [address] [place] [place] [address] 2022-01-30 2022-01-30 Outpatient R NICOLE [facility] [id number] Univers 15:00:00 15:00:00 ABNER norma [facility] 2022-01-30 2022-01-30 Outpatient R NICOLE [facility] [id number] Univers 15:00:00 15:00:00 ABNER norma [facility] 2022-01-28 2022-01-28 Outpatient R BELINDA JOLLY [facility] [id number] Univers 10:00:00 11:41:19 BELINDA JOLLY i [facility] 2022-01-28 2022-01-28 Office [facility] 1.2.840.114 [id number] Univers 10:00:00 11:41:19 Visit Sendy Doty 350.1 .13.10 ity Belinda [place] 4.2.7.2.686 [facility] [id number] [facility] [address] DI[facility] 2022-01-28 2022-01-28 Telephone [place] [facility] 1.2.840.114 [id number] Univers 00:00:00 00:00:00 MULTISPEC 350.1.13.10 ity of [place] 4[place]2.7.2.686 [place] [id number] [address] DIABETES CLINIC 2022-01-24 2022-01-24 Outpatient R NICOLE [facility] [id number] Univers 12:00:00 12:56:43 ABNER prasad [facility] 2022-01-24 2022-01-24 [employer] Lab, Ang - Hans [facility] 1.2.840.1 [id number] Univers 12:00:00 12:56:43 Visit Abner Rivera [facility] 350.1.13.10 ity of [place] 4.2.7.2.686 Gordon as LUDWIN?BLEA [id number] [address] MEDICAL OFFICE BUILDING 2022-01-17 2022-01-17 Outpatient R KURTIS KIRK [facility] [id number] Univers 10:40:00 17:36:05 KURTIS KIRK of [facility] 2022-01-17 2022-01-17 Office Kurtis Krik [facility] 1.2.840.114 [id number] Univers 10:40:00 11:00:00 Visit MULTISPEC 350.1.13.10 ity of [place] 4.2.7.2.686 [facility] [id number] [facility] [address] [facility] 2022-01-17 2022-01-17 Outpatient R KURTIS KIRK [facility] [id number] Univers 10:40:00 10:40:00 KURTIS KIRK [facility] 2022-01-14 2022-01-14 Orders Doctor GUNN 1.2.840.114 [id number] Univers 00:00:00 00:00:00 Only Unassigned, SANDRA 350.1.13.10 [place]y of [place] [facility] 4.2.7.2.686 Gordon as [id number] [address] 2022-01-03 2022-01-03 Outpatient [facility] [id number] Univers 14:00:00 14:00:00 COLÓN ity o [facility] 2022-01-03 2022-01-03 [facility] [id number] Univers 14:00:00 14:00:00 COLÓN ity o [facility] 2022-01-03 2022-01-03 Outpatient [facility] [id number] Univers 14:00:00 14:00:00 COLÓN osmar o [facility] 2022-01-03 2022-01-03 [facility] [id number] Univers 14:00:00 14:00:00 COLÓN itnoram o [facility] 2022-01-03 2022-01-03 [facility] [id number] Univers 14:00:00 14:00:00 COLÓN ity o [facility] 2022-01-02 2022-01-02 [facility] [id number] Univers 00:00:00 00:00:00 [facility] [id number] itRenny [id number] Gordon as LUDWIN?BLEA [id number] Dc mad[address] MED[facility] OFF[facility]ING 2021-12-26 2021-12-26 Outpatient R [facility] [id number] Univers 15:00:00 15:56:20 [facility] 2021-12-26 2021-12-26 Outpatient R [facility] [id number] Univers 15:00:00 15:56:20 ABNER [facility] 2021-12-26 2021-12-26 [facility] 1.2.840.114 [id number] Univers 15:00:00 15:56:20 Visit Abner CAZARES 350.1.13.10 i ty of [place] [phone] Dc dicjo BETTS [address] BUILDING 2021-12-21 2021-12-21 Telephone [place] Jolly [facility] 1.2.840.114 [id number] Univers 00:00:00 00:00:00 MULTISPEC 350.1.13.10 ity of [place].2.7.2.686 [place] [id number] [facility] AND [place] [address] [facility]ES CLINIC 2021-12-20 2021-12-20 Outpatient R [facility] 1041 [id number] Univers 11:15:00 11:15:00 ABNER prasad [facility] 2021-12-20 2021-12-20 [employer] Lab, Ang - Hans [facility] 1.2.840.1 14 [id number] Univers 11:15:00 11:15:00 Visit Abner Rivera [facility] 350.1.13.10 ity of [place] 4.2.7.2.686 [place] as LUDWIN?BLEA [phone] Dc dicjo PIEDRA [address] MEDICAL OFFICE BUILDING 2021-12-20 2021-12-20 Outpatient R [facility] 1041 [id number] Univers 11:15:00 11:01:30 ABNER prasad [facility] 2021-12-20 2021-12-20 Outpatient R [facility] 1041 [id number] Univers 11:15:00 11:01:30 ABNER prasad [facility] 2021-12-17 2021-12-17 Transition KAMILLA Deras 1.2.840.114 [id number] Univers 00:00:00 00:00:00 of Care Cassius RODRIGUEZ 350.1.13.10 ity of [place].2.7.2.686 [place] [id number] [facility] [address] 2021-12-13 2021-12-15 Inpatient U CONORBARBARAEvangelina [facility] AKANKSHA [id number] Univers 10:51:00 17:59:00 ASHWIN prasad [facility] 2021-12-13 2021-12-15 [facility] Nkechi Malave 1.2.840. 114 [id number] Univers 10:51:00 17:59:00 Encounter Huma Joy 350.1.13. 10 ity [facility] Ashwin [facility] 4.2.7.2.686 [place] [id number] [facility] [address] 2021-12-13 2021-12-15 Inpatient U [facility] [id number] Univers 10:51:00 17:59:00 ASHWIN ity [facility] 2021-12-13 2021-12-13 Telephone Will [facility] 1.2.840.114 [id number] Univers 00:00:00 00:00:00 Sendy dunbar 350.1.13.10 ity [facility] [place].2.7.2.[place] [id number] [facility] [place] [address] DIAB[facility]ES CLINIC 2021-11-26 2021-11-26 Telephone [facility] 1.2.762.290 [id number] Univers 00:00:00 00:00:00 Tomeka CAZARES 350.1.13.10 ity [facility] 4.2.7.[place] [phone] Dc dical NAL 059 [facility] 2021-11-21 2021-11-21 [facility] 1040 [id number] Univers 15:00:00 16:16:51 ABNER prasad [facility] 2021-11-21 2021-11-21 Office [facility] 1.2.840.114 [id number] Univers 15:00:00 16:16:51 Visit Abner CAZARES 350.1.13.10 i ty of [place] 4.2.7.2.686 [place] [phone] Dc dical NAL 044 [facility] 2021-11-21 2021-11-21 [facility] 1040 [id number] Univers 15:00:00 16:16:51 ABNER prasad [facility] 2021-11-21 2021-11-21 [facility] 1040 [id number] Univers 15:00:00 15:00:00 ABNER ity [facility] 2021-11-14 2021-11-14 [employer] 2, Adc Lab [facility] 1.2.840.114 [id number] Univers 10:30:00 10:45:00 Visit Abner Rivera 350.1.13.10 ity of [facility] 4.2.7.2.[place] [phone] Dc dical NAL 353 [facility] 2021-11-14 2021-11-14 [employer] 2, Adc Lab [facility] 1.2.840.114 [id number] Univers 10:30:00 10:45:00 Visit Abner Rivera 350.1.13.10 ity of [facility] 4.2.7.2.686 [place] [phone] Dc dical [address] 2021-11-14 2021-11-14 Outpatient R JUNIOR GARCIA [facility] [id number] Univers 09:30:00 09:32:21 JUNIOR GARCIA ity [facility] 2021-11-14 2021-11-14 Office Jose, [facility] 1.2.840.114 [id number] Univers 09:30:00 09:32:21 Visit Junior CAZARES 350.1.13.10 ity of [facility] 4.2.7.2.[address] [place] [address] [id number] [facility] 044 [facility] 2021-11-05 2021-11-05 Outpatient R DESMOND [facility] [id number] Univers 14:00:00 14:00:00 WONDIFUL ity o f [facility] 2021-11-05 2021-11-05 Outpatient R DESMOND [facility] [id number] Univers 14:00:00 14:00:00 WONDIFUL ity o f [facility] 2021-10-18 2021-10-18 Outpatient R SHELBIE [facility] [id number] Univers 08:00:00 08:00:00 COLÓN ity o f [facility] 2021-10-18 2021-10-18 Outpatient R [facility] [id number] Univers 08:00:00 08:00:00 COLÓN ity o f [facility] 2021-10-12 2021-10-12 Refill [facility] 1.2.840.114 [id number] Univers 00:00:00 00:00:00 Abner CAZARES 350.1.13.10 i ty of [facility] 4.2.7.2.[place] [phone] Dc dical NAL [address] [place] [address] 2021-10-04 2021-10-04 Telephone [facility] 1.2.840.114 [id number] Univers 00:00:00 00:00:00 [facility] 350.1.13.10 it y of [facility] 4.2.7.2.686 [place] [phone] [address] ([facility]) 2021-10-02 2021-10-02 Outpatient R [facility] [id number] Univers 08:40:00 09:11:54 ABNER prasad [facility] 2021-10-02 2021-10-02 Office [facility] 1.2.840.114 [id number] Univers 08:00:00 09:11:36 Visit Abner CAZARES 350.1.13.10 i ty of [facility] 4.2.7.2.686 [place] [phone] Dc dical NAL [address] [place] [address] 2021-10-02 2021-10-02 Office [facility] 1.2.840.114 [id number] Univers 08:40:00 09:00:00 Visit Abner CAZARES 350.1.13.10 i ty of [facility] 4.2.7.2.686 [place] [phone] Dc dical NAL [address] [place] [address] 2021-10-02 2021-10-02 Outpatient [facility] [id number] Univers 08:40:00 08:40:00 ABNER prasad [facility] 2021-10-02 2021-10-02 Outpatient R [facility] 1040 [id number] Univers 08:00:00 08:00:00 ABNER prasad [facility] 2021-10-02 2021-10-02 Orders Doctor VELIA 1.2.840.114 [id number] Univers 00:00:00 00:00:00 Only Unassigned, SANDRA 350.1.13.10 ity of [place] [facility] 4.2.7.2.686 [place] as [phone] [address] 2021-09-26 2021-09-26 [employer] 2, Adc Lab [facility] 1.2.840.114 [id number] Univers 08:45:00 09:00:00 Visit HermilajinAbner martínez 350.1.13.10 ity [facility] 4.2.7.2.686 [place] [phone] Dc dical NAL [address] [place] [address] 2021-09-26 2021-09-26 Outpatient R [facility] [id number] Univers 08:45:00 08:45:00 ABNER osmar [facility] 2021-09-26 2021-09-26 Outpatient R [facility] 1040 [id number] Univers 08:45:00 08:45:00 ABNER prasad [facility] 2021-09-26 2021-09-26 Outpatient R [facility] [id number] Univers 08:45:00 08:45:00 ABNER norma [facility] 2021-09-26 2021-09-26 Outpatient R [facility] [id number] Univers 08:45:00 08:45:00 ABNER osmar [facility] 2021-09-26 2021-09-26 Outpatient R [facility] [id number] Univers 08:45:00 08:45:00 ABNER norma [facility] 2021-09-25 2021-09-25 Telephone [facility] 1.2.840.114 [id number] Univers 00:00:00 00:00:00 Abner CAZARES 350.1.13.10 i ty of [place] 4.2.7.2.686 [place] [id number] Dc dical NAL 044 [facility] 2021-09-18 2021-09-18 Outpatient R NICOLE [facility] 1039 [id number] Univers 14:00:00 15:08:38 ABNER osmar [facility] 2021-09-18 2021-09-18 Office Hermilam[facility]iPRES[facility] 1.2.840.114 [id number] Univers 14:00:00 15:08:38 Visit Abner CAZARES 350.1.13.10 i [facility] 4.2.7.2.686 [facility] PROFESSIO [id number] Dc dical NAL [address] [place] [place] [address] 2021-09-18 2021-09-18 Outpatient R NICOLE [facility] 1039 [id number] Univers 14:00:00 15:08:38 ABNER lopeznorma [facility] 2021-09-18 2021-09-18 Outpatient R [facility] 1039 [id number] Univers 14:00:00 14:00:00 ABNER osamr [facility] 2021-09-18 2021-09-18 Outpatient R [facility] [id number] Univers 14:00:00 14:00:00 ABNER osmar [facility] 2021-09-06 2021-09-06 [employer] [facility] 1.2.840.114 [id number] Univers 14:45:00 15:00:00 Visit Katarzyna Coburn MULTISPEC 350.1.13 .10 ity of [place] Jolly 4.2.7.2.686 [facility] [phone] [address] DIABETES CLINIC 2021-09-06 2021-09-06 Outpatient R BOSTON JOLLY [facility] [id number] Univers 14:45:00 14:45:00 ity [facility] 2021-09-06 2021-09-06 Office [place] Jolly [facility] 1.2.840.114 [id number] Univers 13:40:00 14:26:55 Visit Katarzyna Coburn MULTISPEC 350.1.13 .10 ity of [place] 4.2.7.2.686 [place] [phone] [facility] AND [address] DIABETES CLINIC 2021-09-06 2021-09-06 Outpatient R SHANAEBOSTON [facility] [id number] Univers 13:40:00 14:26:55 ity of [facility] 2021-09-06 2021-09-06 Outpatient R [facility] [id number] Univers 13:40:00 13:40:00 COLÓN ity o f [facility] 2021-09-06 2021-09-06 Telephone [facility] 1.2.930.060 [id number] Univers 00:00:00 00:00:00 Tomeka CAZARES 350.1.13.10 ity of [facility] 4.2.7.2.686 [place] [id number] Dc dical NAL 059 [facility] 2021-09-03 2021-09-03 Outpatient R [facility] [id number] Univers 14:00:00 14:00:00 KATARZYNA prasad o f [facility] 2021-09-03 2021-09-03 Imm/Inj Vaccine, Adc Family Medicine [facility] 1.2.840.114 [id number] Univers 13:30:00 13:41:21 Visit Autumn Parker 350.1. 13.10 ity of [place] 4.2.7.2.686 [place] [id number] Dc dical NAL 044 [facility] 2021-09-03 2021-09-03 Outpatient R GEORGI [facility] [id number] Univers 13:30:00 13:30:00 AUTUMN prasad [facility] 2021-09-03 2021-09-03 [employer] 2, Adc Lab [facility] 1.2.840.114 [id number] Univers 13:15:00 13:30:00 Visit Tomeka Reed 350.1.13.10 ity of [place].2.7.2.686 [place] [phone] Dc dical NAL 353 [facility] 2021-09-03 2021-09-03 Outpatient R DEREK, [facility] [id number] Univers 13:15:00 13:15:00 TOMEKA norris [facility] 2021-09-03 2021-09-03 Outpatient R DEREK, [facility] [id number] Univers 13:15:00 13:15:00 TOMEKA norris [facility] 2021-09-03 2021-09-03 Outpatient R DEREK, [facility] [id number] Univers 13:15:00 13:15:00 TOMEKA norris [facility] 2021-09-03 2021-09-03 Outpatient R DEREK, [facility] [id number] Univers 13:15:00 13:15:00 TOMEKA norris [facility] 2021-08-22 2021-08-22 Outpatient GUU_SHENG_Y [facility] [id number] [place] 02:19:00 02:19:00 [place] [id number] da [facility] 2021-08-13 2021-08-13 Outpatient R DEREK, [facility] [id number] Univers 15:00:00 15:00:00 TOMEKA norris [facility] 2021-08-13 2021-08-13 Outpatient R DEREK, [facility] [id number] Univers 14:00:00 14:26:07 TOMEKA norris [facility] 2021-08-13 2021-08-13 Office Derek, [facility] 1.2.840.114 [id number] Univers 14:00:00 14:26:07 Visit Tomeka SAGE 350.1.13.10 ity of [facility] 4.2.7.2.686 [place] [id number] Dc dical [facility] [address] BUILDING 2021-07-20 2021-07-20 Telephone Gamilla-Cru [facility] 1.2.840.114 [id number] Univers 00:00:00 00:00:00 Sendy dunbar MULTISPEC 350.1.13.10 [facility] 4.2.7.2.686 [place] [phone] [facility] [place] [address] DIABETES CLINIC 2021-07-18 2021-07-18 Ana [facility]PRES[facility] 1.2.840.114 [id number] Univers 00:00:00 00:00:00 Wondiful A HEALTH 350.1.13.10 ity of [place] 4.2.7.2.686 [place] as LUDWIN?BLE [phone] Dc radha PIEDRA [address] [place] [address] MEDICAL OFFICE BUILDING 2021-07-16 2021-07-16 Outpatient R [facility] [id number] Univers 15:30:00 15:30:00 ity [facility] 2021-07-16 2021-07-16 Outpatient R [facility] [id number] Univers 15:30:00 15:30:00 ity [facility] 2021-07-11 2021-07-11 Telephone Patrick-Jami [facility] 1.2.840.114 [id number] Univers 00:00:00 00:00:00 Sendy dunbar MULTISPEC 350.1.13.10 ity of [place] 4.2.7.2.686 [facility] [id number] [facility] AND [place] [address] DIABETES CLINIC 2021-07-02 2021-07-02 Outpatient R [facility] [id number] Univers 13:45:50 23:59:00 BRENDA prasad [facility] 2021-07-02 2021-07-02 [facility] 1.2.840.114 [id number] Univers 13:45:50 23:59:00 Encounter Brenda CAZARES 350.1.13.10 ity [place] 4.2.7.2.686 [place] [facility] [id number] [facility] [address] 2021-07-02 2021-07-02 Outpatient R [facility]LECT [facility] [id number] Univers 13:45:50 23:59:00 BRENDA prasad [facility] 2021-06-26 2021-06-26 Outpatient R [facility] [id number] Univers 14:38:50 23:59:00 TOMEKA prasad o f [facility] 2021-06-20 2021-06-20 [facility] 1.2.840.114 [id number] Univers 13:38:53 23:59:00 Encounter Brenda CAZARES 350.1.13.10 ity [facility] [address] [facility] [place] [id number] [facility] [address] 2021-06-20 2021-06-20 Outpatient R GRAMM, [facility] [id number] Univers 00:00:00 23:59:00 BRENDA prasad [facility] 2021-06-20 2021-06-20 Outpatient R GRAMM, [facility] [id number] Univers 00:00:00 23:59:00 BRENDA prasad [facility] 2021-06-20 2021-06-20 Outpatient R GRAMM, [facility] [id number] Univers 00:00:00 23:59:00 BRENDA norma [facility] 2021-06-20 2021-06-20 Outpatient R GRAMM, [facility] [id number] Univers 00:00:00 23:59:00 BRENDA norma [facility] 2021-06-20 2021-06-20 Outpatient R GRAMM, [facility] [id number] Univers 00:00:00 23:59:00 BRENDA norma [facility] 2021-06-13 2021-06-13 Outpatient R GRAMM, [facility] [id number] Univers 08:00:00 08:21:22 BRENDA norma [facility] 2021-06-13 2021-06-13 Office [facility] 1.2.840.114 [id number] Univers 08:00:00 08:21:22 Visit Brenda CAZARES 350.1.13.10 ity [facility] 4.2.7.2.686 [facility] [id number] Dc dical [facility] 204 [facility] 2021-06-13 2021-06-13 Outpatient R GRAMM, [facility] [id number] Univers 08:00:00 08:00:00 BRENDA norma [facility] 2021-06-11 2021-06-11 Abstract Shelbie [facility] 1.2.494.511 [id number] Univers 00:00:00 00:00:00 Katarzyna LAEJO 350.1.13.10 ity of [place].2.7.2.[place] C[place] [id number] [facility] [address] DIABETES CLINIC 2021-06-07 2021-06-07 [employer] Vtc-Lab [facility] 1.2.840.114 [id number] Univers 14:15:00 14:45:00 Visit Shelbie Katarzyna Nelson MULTISPEC 350.1.13 .10 ity of [place] 4.2.7.2.686 [place] [id number] [facility] [address] DIABETES CLINIC 2021-06-07 2021-06-07 Outpatient R [facility] [id number] Univers 13:20:00 14:00:27 COLÓN itnorma o [facility] 2021-06-07 2021-06-07 Office [place] Jolly [facility] 1.2.840.114 [id number] Univers 13:20:00 14:00:27 Visit Shelbie Katarzyna Damon MULTISPEC 350.1.13 .10 ity of [place] 4.2.7.2.686 [place] [id number] [facility] [address] DIABETES CLINIC 2021-06-07 2021-06-07 Outpatient R [facility] [id number] Univers 13:20:00 14:00:27 COLÓN ity o [facility] 2021-06-04 2021-06-04 Outpatient [facility] [id number] Univers 14:30:00 14:49:47 COLÓN ity o [facility] 2021-06-04 2021-06-04 [employer] Lab, Ang - Db [facility] 1.2.840.1 14 [id number] Univers 14:30:00 14:49:47 Visit ShelbieKatarzyna peters HEALTH 350.1.13.1 0 ity of [place] 4.2.7.2.686 [place] as LUDWIN?BLEA [id number] [address] MEDICAL OFFICE BUILDING 2021-06-04 2021-06-04 Outpatient R [facility] [id number] Univers 14:30:00 14:49:47 COLÓN ity o f [facility] 2021-06-04 2021-06-04 Outpatient R SHELBIE [facility] [id number] Univers 14:30:00 14:49:47 COLÓN ity o f [facility] 2021-06-04 2021-06-04 Outpatient R [facility] [id number] Univers 14:30:00 14:49:47 COLÓN ity o f [facility] 2021-06-04 2021-06-04 Outpatient R [facility] [id number] Univers 14:30:00 14:30:00 COLÓN ity o [facility] 2021-06-04 2021-06-04 Outpatient R GAMILLA-U [facility] [id number] Univers 08:00:00 08:00:00 SENDY DUNBAR [facility] 2021-06-04 2021-06-04 Outpatient R GAMILLA-U [facility] [id number] Univers 08:00:00 08:00:00 DOSENDY [facility] 2021-06-04 2021-06-04 Orders Doctor VELIA 1.2.840.114 [id number] Univers 00:00:00 00:00:00 Only Unassigned, SANDRA 350.1.13.10 ity of [place] [facility] 4.2.7.2.686 [place] as [id number] [address] 2021-06-04 2021-06-04 Telephone [facility] 1.2.840.114 [id number] Univers 00:00:00 00:00:00 Wondiful [facility] HE[facility] 350.1.13.10 ity [facility] 4.2.7.2.686 [place] as LUDWIN?BLEA [id number] [address] MEDICAL OFFICE BUILDING 2021-06-01 2021-06-01 Telephone [facility] 1.2.840.114 [id number] Univers 00:00:00 00:00:00 doSendy MULTISPEC 350.1.13.10 ity of [place] 4.2.7.2.686 [place] [id number] [facility] AND [place] [address] DIABETES CLINIC 2021-05-25 2021-05-25 Fertile DerekPRESBY[facility] 1.2.486.305 [id number] Univers 00:00:00 00:00:00 Miriamermiasjose KATALINATON 350.1.13.10 ity of [facility] 4.2.7.2.686 [place] [id number] Dc dical NAL 059 [facility] 2021-05-23 2021-05-23 Refill DesmondPRESBYTER[facility] 1.2.840.114 [id number] Univers 00:00:00 00:00:00 Wondiful A HEALTH 350.1.13.10 ity of [facility] 4.2.7.2.686 [place] as LUDWIN?BLEA [id number] [address] MEDICAL OFFICE [facility] 2021-05-22 2021-05-22 Outpatient R [facility] [id number] Univers 14:00:00 23:59:00 QIAERMIASJUN ity o f [facility] 2021-05-22 2021-05-22 [facility]PRES[facility]TER[facility] 1.2.840.114 [id number] Univers 14:00:00 23:59:00 Encounter Tomeka CAZARES 350.1.13.10 ity of [facility] 4.2.7.2.686 [place] [id number] [facility] 843 [facility] 2021-05-22 2021-05-22 Outpatient R [facility] [id number] Univers 14:00:00 14:00:00 BECKYJUN ity o f [facility] 2021-05-21 2021-05-21 Office Des[facility]PRES[facility] 1.2.840.114 [id number] Univers 15:30:00 15:30:00 Visit Wondiful A HEALTH 350.1.13.10 ity of [place] 4.2.7.2.686 [place] as LUDWIN?BLEA [id number] [address] MEDICAL OFFICE [facility] 2021-05-21 2021-05-21 Outpatient R DESMOND [facility] [id number] Univers 15:30:00 15:18:08 WONDIFUL ity o f [facility] 2021-05-15 2021-05-15 Outpatient R DEREK, [facility] [id number] Univers 15:00:00 15:33:39 QIATAWANNA ity o f [facility] 2021-05-15 2021-05-15 Office Derek, [facility] 1.2.840.114 [id number] Univers 15:00:00 15:33:39 Visit Tomeka SKIPPACK 350.1.13.10 ity eddi [facility] 4.2.7.2.[place] [id number] Dc madysonal ALPESH [address] [facility] 2021-05-15 2021-05-15 Outpatient R DEREK, [facility] [id number] Univers 15:00:00 15:33:39 QIATAWANNA ity o f [facility] 2021-05-15 2021-05-15 Outpatient R DEREK, [facility] [id number] Univers 15:00:00 15:00:00 TOMEKA ity o f [facility] 2021-05-15 2021-05-15 Outpatient R DEREK, [facility] [id number] Univers 15:00:00 15:00:00 [facility] ity o [facility] 2021-05-10 2021-05-10 [facility] [id number] Univers 00:00:00 00:00:00 Management Wondiful [id number] [facility] [id number] Gordon as LUDWIN?BLEA [id number] Dc dical KNEY [address] [facility] 2021-05-09 2021-05-09 Outpatient R DESMOND, [facility] [id number] Univers 14:00:00 14:52:25 WONDIFUL ity o f [facility] 2021-05-09 2021-05-09 Outpatient R DESMOND, [facility] [id number] Univers 14:00:00 14:52:25 WONDIFUL ity o f [facility] 2021-05-09 2021-05-09 Outpatient R DESMOND, [facility] [id number] Univers 14:00:00 14:52:25 WONDIFUL ity o f [facility] 2021-05-09 2021-05-09 Outpatient R DESMOND [facility] [id number] Univers 14:00:00 14:52:25 WONDIFUL ity o f [facility] 2021-05-09 2021-05-09 [employer] Meng - Db [facility] [id number] Univers 14:00:00 14:15:00 Visit Isreal Logan [facility] [id number] 0 [facility] [place] [id number] Gordon as LUDWIN?BLEA [id number] [facility] [address] [facility] 2021-05-09 2021-05-09 Outpatient Matt LOGAN [facility] [id number] Univers 14:00:00 14:00:00 WONDIFUL ity o f [facility] 2021-05-07 2021-05-07 Outpatient Matt LOGAN [facility] [id number] Univers 08:45:00 09:14:41 WONDIFUL ity o f [facility] 2021-05-07 2021-05-07 Office Desmond [facility] [id number] Univers 08:45:00 09:14:41 Visit Wondidamon [facility] [id number] [facility] [place] [id number] Gordon as LUDWIN?BLEA [id number] [address] MEDICAL OFFICE BUILDING 2021-05-07 2021-05-07 Outpatient Matt LOGAN [facility] [id number] Univers 08:45:00 09:14:41 WONDIFUL ity o f [facility] 2021-05-07 2021-05-07 Outpatient Matt LOGAN [facility] [id number] Univers 08:45:00 08:45:00 WONDIFUL ity o f [facility] 2021-05-07 2021-05-07 Outpatient Matt LOGAN [facility] [id number] Univers 08:30:00 08:30:00 WONDIFUL ity o [facility] 2021-05-01 2021-05-01 [employer] [facility] 1.2 .840.114 [id number] Univers 13:00:00 13:15:00 Visit Antoninoeaston Kain Barrera [place] 350.1.13. 10 ity of [place] 4.2.7.2.686 [facility] [phone] [facility] [address] 2021-05-01 2021-05-01 Outpatient R GRACE JULIENPAAllison [facility] [id number] Univers 13:00:00 13:00:00 KAIN JULIEN ity [facility] 2021-05-01 2021-05-01 Outpatient R GRACE JULIENPAAllison [facility] [id number] Univers 13:00:00 13:00:00 KAIN JULIEN itnorma [facility] 2021-05-01 2021-05-01 Orders Doctor GUNN 1.2.840.114 [id number] Univers 00:00:00 00:00:00 Only Unassigned, SANDRA 350.1.13.10 it[facility] 4.2.7.2.686 [place] as [id number] [address] 2021-04-30 2021-04-30 [facility] 1.2.840.114 [id number] Univers 00:00:00 00:00:00 Wondiful A HEALTH 350.1.13.10 ity of [place] 4.2.7.2.686 [place] as LUDWIN?BLEA [phone] [address] MEDICAL OFFICE [facility] 2021-04-28 2021-04-28 Ana [facility] 1.2.840.114 [id number] Univers 00:00:00 00:00:00 Wondiful A HEALTH 350.1.13.10 ity of [place] 4.2.7.2.686 [place] as LUDWIN?BLEA [phone] [address] OFFICE [facility] 2021-04-27 2021-04-27 Laboratory Only, Adc Test [facility] 1.2.840. 114 [id number] Univers 14:45:00 15:00:00 Only Kain Julien [place] 350.1.13. 10 ity of [place] 4.2.7.2.[place] [phone] [address] 2021-04-27 2021-04-27 Outpatient R [facility] [id number] Univers 14:45:00 14:45:00 ity of [facility] 2021-04-27 2021-04-27 Outpatient R FERMIN [facility] [id number] Univers 14:45:00 14:45:00 ATANASOV [facility] ity [facility] 2021-04-27 2021-04-27 Outpatient R FERMIN [facility] [id number] Univers 14:45:00 14:45:00 ATAEASTON [facility] 2021-04-25 2021-04-25 Out[facility] [id number] Univers 14:00:00 14:00:00 GOLDIE ity o [facility] 2021-04-19 2021-04-19 Outpatient R [facility] [id number] Univers 14:00:00 14:35:40 WONDIFUL ity o f [facility] 2021-04-19 2021-04-19 Office [facility] 1.2.840.114 [id number] Univers 14:00:00 14:35:40 Visit Wondiful A HEALTH 350.1.13.10 it[facility] 4.2.7.2.686 [place] as LUDWIN?BLEA [id number] [address] MEDICAL OFFICE [facility] 2021-04-19 2021-04-19 Outpatient R [facility] [id number] Univers 14:00:00 14:00:00 WONDIFUL ity o f [facility] 2021-04-17 2021-04-17 Refill [facility] 1.2.840.114 [id number] Univers 00:00:00 00:00:00 Wondiful A HEALTH 350.1.13.10 ity of [place] 4.2.7.2.686 Gordon as LUDWIN?BLEA [id number] [address] MEDICAL OFFICE BUILDING 2021-04-16 2021-04-16 Office [place] Jolly [facility] 1.2.840.114 [id number] Univers 09:20:00 09:40:00 Visit Sendy Doty 350.1 .13.10 ity of [place].2.7.2.[place] [phone] [facility] [address] [facility] 2021-04-16 2021-04-16 Outpatient R WILL [facility] [id number] Univers 09:20:00 09:20:00 SENDY DUNBAR ity [facility] 2021-04-16 2021-04-16 [employer] Vtc-Lab [facility] 1.2.840.114 [id number] Univers 08:45:00 09:00:00 Visit Sendy DotyPEC 350.1 .13.10 ity of [place] 4.2.7.2.686 [facility] [phone] [facility] [address] [facility] 2021-04-09 2021-04-09 Telephone Desmond [facility] 1.2.840.114 [id number] Univers 00:00:00 00:00:00 Wondiful A HEALTH 350.1.13.10 ity of [place] 4.2.7.2.686 Gordon as LUDWIN?BLEA [phone] Dc radha PIEDRA [address] MEDICAL OFFICE BUILDING 2021-03-30 2021-03-30 Orders Doctor VELIA 1.2.840.114 [id number] Univers 00:00:00 00:00:00 Only Unassigned, SANDRA 350.1.13.10 [place] [facility] 4.2.7.2.686 Gordon as [phone] [facility] [address] 2021-03-29 2021-03-29 [employer] Lab, Ang - Db [facility] 1.2.840.1 14 [id number] Univers 17:01:51 17:11:33 Visit Isreal Logan A HEALTH 350.1.13.1 0 ity of [place] 4.2.7.2.686 Gordon as LUDWIN?BLEA [phone] Dc radha PIEDRA [address] MEDICAL OFFICE BUILDING 2021-03-29 2021-03-29 Outpatient R [facility] [id number] Univers 16:00:00 17:03:58 WONDIFUL ity o f [facility] 2021-03-29 2021-03-29 Office [facility] 1.2.840.114 [id number] Univers 15:49:02 17:03:58 Visit Wondiful A HEALTH 350.1.13.10 ity of [place] 4.2.7.2.686 Gordon as LUDWIN?BLEA [id number] [address] MEDICAL OFFICE [facility] 2021-03-29 2021-03-29 Outpatient R [facility] [id number] Univers 17:00:00 17:00:00 WONDIFUL ity o f [facility] 2021-03-29 2021-03-29 Outpatient R YOUSUF STAHL [facility] 10 [id number] Univers 15:30:00 15:30:00 YOUSUF STAHL i [facility] 2021-03-27 2021-03-27 Telephone [facility] 1.2.840.114 [id number] Univers 00:00:00 00:00:00 Wondiful A HEALTH 350.1.13.10 ity of [place] 4.2.7.2.686 Gordon as LUDWIN?BLEA [id number] [address] 2021-03-24 2021-03-24 Refill [facility] 1.2.840.114 [id number] Univers 00:00:00 00:00:00 Wondiful A HEALTH 350.1.13.10 ity of [place] 4.2.7.2.686 Gordon as LUDWIN?BLEA [phone] [address] OFFICE [facility] 2021-03-20 2021-03-20 [facility] 1.2.840.114 [id number] Univers 00:00:00 00:00:00 Wondiful A HEALTH 350.1.13.10 ity of [place] 4.2.7.2.686 Gordon as LUDWIN?BLEA [id number] [address] OFFICE [facility] 2021-03-19 2021-03-19 Telephone [facility] 1.2.840.114 [id number] Univers 00:00:00 00:00:00 Wondiful A HEALTH 350.1.13.10 ity of [place] 4.2.7.2.686 Gordon as LUDWIN?BLEA [id number] [address] MEDICAL OFFICE [facility] 2021-03-16 2021-03-16 Telephone [facility] 1.2.840.114 [id number] Univers 00:00:00 00:00:00 Sendy dunbar MULTISPEC 350.1.13.10 ity of [place] 4.2.7.2.[address] [place] [address] [id number] [facility] [address] [facility] 2021-03-15 2021-03-15 Outpatient R YOUSUF STAHL [facility] 10 [id number] Univers 14:47:13 23:59:00 YOUSUF STAHL [facility] 2021-03-15 2021-03-15 [facility] 1.2.840.114 [id number] Univers 14:47:13 23:59:00 Encounter Yousuf [place] 350.1.13.10 ity of [place] 4.2.7.2.686 [place] [phone] [facility] [address] 2021-03-15 2021-03-15 Refill [facility] 1.2.840.114 [id number] Univers 00:00:00 00:00:00 Sendy dunbar MULTISPEC 350.1.13.10 ity of [place] 4.2.7.2.686 [place] [id number] [facility] [address] [facility] 2021-03-14 2021-03-14 Refill [facility] 1.2.840.114 [id number] Univers 00:00:00 00:00:00 Wondiful A HEALTH 350.1.13.10 ity [facility] 4.2.7.2.686 [place] as LUDWIN?BLEA [id number] [address] MEDICAL OFFICE [facility] 2021-03-13 2021-03-13 Telephone [facility] 1.2.840.114 [id number] Univers 00:00:00 00:00:00 Wondiful A HEALTH 350.1.13.10 ity of [facility] 4.2.7.2.686 [place] as LUDWIN?BLEA [phone] [address] MEDICAL OFFICE [facility] 2021-02-27 2021-02-27 Ana LoganPRES[facility] 1.2.840.114 [id number] Univers 00:00:00 00:00:00 Wondiful A HEALTH 350.1.13.10 ity of [facility] 4.2.7.2.686 [place] as LUDWIN?BLEA [phone] [address] MEDICAL OFFICE [facility] 2021-02-12 2021-02-12 [employer] [facility] 1.2.840.114 [id number] Univers 09:42:17 09:57:17 Visit Joseph Goldie E Y HEALTH 350.1.13.10 ity of CLIN[place] 4.2.7.2.[place] [id number] [facility] [address] 2021-02-12 2021-02-12 Office AYAD Ruiz 1.2.616.474 [id number] Univers 08:54:51 09:24:51 Visit Goldie E Y HEALTH 350.1.13.10 ity of CLINICS 4.2.7.2.[place] [phone] [place] [address] 2021-02-12 2021-02-12 Outpatient Matt RUIZ [facility] [id number] Univers 09:00:00 09:00:00 GOLDIE ity o f [facility] 2021-02-12 2021-02-12 Outpatient Matt RUIZ [facility] [id number] Univers 09:00:00 09:00:00 GOLDIE ity o [facility] 2021-02-12 2021-02-12 Outpatient Matt RUIZ [facility] [id number] Univers 09:00:00 09:00:00 GOLDIE jessicay o [facility] 2021-02-03 2021-02-03 Refcari LoganPRESBYTER[facility] 1.2.840.114 [id number] Univers 00:00:00 00:00:00 Wondiful A Health 350.1.13.10 ity of [place] 4.2.7.2.686 Gordon as Ludwin?Blea [phone] Dc radha piedra [address] [facility] 2021-01-22 2021-01-22 Outpatient R [facility] [id number] Univers 08:00:00 08:00:00 SENDY DUNBAR ity of [facility] 2021-01-22 2021-01-22 Telephone [facility]itPRES[facility]TER[facility] 1.2.840.114 [id number] Univers 00:00:00 00:00:00 Parminder Hudson MULTISPEC 350.1.13.10 it[place] of [place]2.686 [place] [id number] [address] DIABETES CLINIC 2021-01-18 2021-01-18 Outpatient R YOUSUF STAHL [facility] 10 [id number] Univers 10:30:00 11:11:44 YOUSUF STAHL i ty [facility] 2021-01-18 2021-01-18 Outpatient R YOUSUF STAHL [facility] 10 [id number] Univers 10:30:00 11:11:44 YOUSUF STAHL i ty [facility] 2021-01-18 2021-01-18 Office BritPRESBYTER[facility] 1.2.840.114 [id number] Univers 10:21:37 11:11:44 [facility] [place] 350.1.13.10 i ty of [place].2.7.2.[place] Profess[place] [phone] Dc radha [facility] 085 [facility] 2021-01-12 2021-01-12 Refcari LoganPRESBYTERIAN K[facility] 1.2.840.114 [id number] Univers 00:00:00 00:00:00 Wondiful A Health 350.1.13.10 ity of [place] 4.2.7.2.686 Gordon as Ludwin?Blea [phone] Dc madysonne chandu [address] [facility] 2021-01-12 2021-01-12 Telephone MargaretmaryannUNM [facility] 1.2.840.114 [id number] Univers 00:00:00 00:00:00 do, Sendy K N MULTISPEC 350.1.13.10 ity of [place]2.7.2.686 [place] C[place] [phone] [facility] AND AUGUST [address] DIABETES [facility]IC 2021-01-12 2021-01-12 Orders Doctor VELIA 1.2.840.114 [id number] Univers 00:00:00 00:00:00 Only Unassigned, SANDRA 350.1.13.10 [place] [facility] 4.2.7.2.686 Gordon as [phone] [facility] [address] 2021-01-09 2021-01-09 Ana Logan [facility] 1.2.840.114 [id number] Univers 00:00:00 00:00:00 Wondiful A [facility] 350.1.13.10 ity of [place] 4.2.7.2.686 Gordon as Ludwin?Blea [phone] Dc dicjo noriegaey [address] [facility] 2020-12-29 2020-12-29 Outpatient R DEREK [facility] [id number] Univers 13:40:00 13:59:22 TOMEKA prasad o f [facility] 2020-12-29 2020-12-29 Office DerekPRESBYTERIAN [facility] 1.2.840.114 [id number] Univers 13:36:44 13:59:22 Visit Tomeka Cazares 350.1.13.10 it[place] of [place].2.[place] [phone] Dc dical alpesh 059 [facility] 2020-12-29 2020-12-29 Outpatient R HARSHIL [facility] [id number] Univers 12:40:00 12:40:00 BRAN prasad [facility] 2020-12-29 2020-12-29 Imm/Inj Nurse, Adc Pob Immunization [facility] 1.2.840.114 [id number] Univers 12:34:50 12:35:03 Visit Bran Marie 350.1.13 .10 ity of [place].2.686 [place] [phone] Dc dicjo betts 421 [facility] 2020-12-11 2020-12-11 Outpatient R [facility] [id number] Univers 14:30:24 23:59:00 WONDIFUL ity o f [facility] 2020-12-11 2020-12-11 [facility]PRESBYTER[facility] 1.2.260.676 [id number] Univers 14:30:00 23:59:00 Encounter Isreal Cazares 350.1.13.10 ity of [place] 4.2.7.2.686 [facility] [id number] [facility] [address] 2020-11-30 2020-11-30 Office Parminder Rueda Hudson [facility] 1.2.840 .114 [id number] Univers 07:39:24 09:31:06 Visit Katarzyna Coburn MULTISPEC 350.1.13 .10 ity of [place] 4.2.7.2.686 [facility] [id number] [facility] [address] [facility] 2020-11-30 2020-11-30 Outpatient R [facility]LECT [facility] [id number] Univers 08:00:00 08:00:00 KATARZYNA lopezy o john [facility] 2020-11-30 2020-11-30 Orders Doctor VELIA 1.2.840.114 [id number] Univers 00:00:00 00:00:00 Only Unassigned, SANDRA 350.1.13.10 [place]y of [place] [facility] 4.2.7.2.686 [place] [id number] [facility] [address] 2020-11-28 2020-11-28 Telephone ShelbiePRESBYTERIAN [facility] 1.2.840.114 [id number] Univers 00:00:00 00:00:00 Katarzyna Damon MULTISPEC 350.1.13.10 ity of [place] 4.2.7.2.686 [facility] [id number] [facility] [address] [facility] 2020-11-21 2020-11-21 Hospital [facility] 1.2.840.114 [id number] Univers 17:44:05 23:59:00 Encounter Maia Cazares 350.1.13.10 it[place] of [place].2.686 [place] [phone] [address] 2020-11-21 2020-11-21 [facility] LelandPRESBYTER[facility] 1.2.840.114 [id number] Univers 17:43:47 17:43:47 Encounter Maia Cazares 350.1.13.10 [place] of [place].2.686 [place] [id number] [address] 2020-11-21 2020-11-21 Outpatient R L[facility]AND[facility] [id number] Univers 17:43:47 17:43:47 MAIA osmar [facility] 2020-11-21 2020-11-21 Outpatient L[facility]SELECT [facility] [id number] Univers 17:43:47 17:43:47 MAIAPROMISE prasad [facility] 2020-11-21 2020-11-21 [facility] LleandPRESBYTERIAN [facility] 1.2.840.114 [id number] Univers 17:43:28 17:43:28 Encounter Maia Cazares 350.1.13.10 [place] of [place].2.686 [place] [id number] [address] 2020-11-21 2020-11-21 [facility] Maia Ha [facility] 1.2.840.114 [id number] Univers 16:46:28 17:25:39 [facility] 350.1.13.10 ity of [place] 4.2.7.2.686 [place] as Professio [phone] Dc radha betts [address] One 2020-11-21 2020-11-21 Office JlPRES[facility]TER[facility] 1.2.708.151 [id number] Univers 15:58:15 16:31:56 Visit Jasmyne Cazares 350.1.13.10 i ty of [place].2.[place] [phone] Dc dicjo nal [address] Building 2020-11-21 2020-11-21 Outpatient R [facility] [id number] Univers 16:00:00 16:00:00 JASMYNE prasad [facility] 2020-11-14 2020-11-14 Outpatient R GL[facility]ERSELECT [facility] [id number] Univers 13:00:00 13:00:00 RAFAELA prasad [facility] 2020-11-09 2020-11-09 Outpatient R [facility] [id number] Univers 00:00:00 00:00:00 WONDIFUL ity o f [facility] 2020-11-07 2020-11-07 [facility] 1.2.840.114 [id number] Univers 07:20:00 10:19:00 Encounter Jasmyne Sage 350.1.13.10 [place] of [place] [phone] [facility] [address] 2020-11-07 2020-11-07 Surgery [facility] 1.2.590.610 [id number] Univers 08:30:00 09:25:00 Jasmyne Cazares 350.1.13.10 i ty of [place]2.[place].2.[place] [phone] [facility] [address] 2020-11-07 2020-11-07 Orders Doctor VELIA 1.2.840.114 [id number] Univers 00:00:00 00:00:00 Only Unassigned, SANDRA 350.1.13.10 [place] [facility] 4.2.7.2.686 [place] as [id number] [address] 2020-11-06 2020-11-06 Outpatient R [facility] [id number] Univers 08:45:00 08:45:00 JASMYNE prasad [facility] 2020-11-03 2020-11-03 Telephone [facility]PRES[facility] 1.2.840.114 [id number] Univers 00:00:00 00:00:00 Wondiful A Health 350.1.13.10 ity of [place] 4.2.7.2.686 Gordon as Professio [phone] Dc dical [facility] [address] One 2020-11-02 2020-11-02 Office [facility]PRES[facility] 1.2.840.114 [id number] Univers 10:44:38 12:04:09 Visit [facility] 350.1.13.10 ity of [place] 4.2.7.2.686 [place] as Professio [phone] Dc dical nal 044 [facility] One 2020-11-02 2020-11-02 [employer] Lab, Adc Fam Pob I [facility] 1.2. 840.114 [id number] Univers 11:40:34 12:00:34 Visit Isreal [facility] 350.1.13.1 0 ity of [place] 4.2.7.2.686 [place] as Professio [phone] Dc dicne nal 044 [facility] One 2020-11-02 2020-11-02 Outpatient R DESMOND [facility] [id number] Univers 10:45:00 10:45:00 WONDIFUL ity o f [facility] 2020-10-26 2020-10-26 Office [facility]lPRES[facility] 1.2.567.367 [id number] Univers 12:56:19 13:50:38 Visit Jasmyne Cazares 350.1.13.10 i ty [place].2.[place] [phone] Dc [facility] 188 [facility] 2020-10-26 2020-10-26 Outpatient R JL [facility] [id number] Univers 13:00:00 13:00:00 JASMYNE osmar of [facility] 2020-10-26 2020-10-26 Prep For IjeomaPRESBYTERIAN [facility] 1.2.840.114 [id number] Univers 00:00:00 00:00:00 Surgery Brenda A [place] 350.1.13.10 [place] [phone] Dc dical nal 204 [facility] 2020-09-28 2020-09-28 Office Bijal [facility] 1.2.840.114 [id number] Univers 13:52:52 14:52:50 Visit Gian Health 350.1.13.10 it y of [place] 4.2.7.2.686 [place] as Professio [phone] [address] Office [facility] One 2020-09-28 2020-09-28 Outpatient R [facility]SELECT [facility] [id number] Univers 14:00:00 14:00:00 GIAN ity of [facility] 2020-08-25 2020-08-25 Telephone Desmond [facility] 1.2.840.114 [id number] Univers 00:00:00 00:00:00 Wondiful A Health 350.1.13.10 ity of [place] 4.2.7.2.686 [place] as Professio [phone] [address] One 2020-08-24 2020-08-24 Refill [facility]PRES[facility] 1.2.840.114 [id number] Univers 00:00:00 00:00:00 Wondiful A Health 350.1.13.10 ity of [place] 4.2.7.2.686 [place] as Professio [phone] [address] Office [facility] One 2020-08-14 2020-08-14 [facility] 1.2.840.114 [id number] Univers 15:30:22 23:59:00 Encounter Gian Cazares 350.1.13.10 ity of [place] 4.2.7.2.686 [facility] [phone] [address] 2020-08-14 2020-08-14 Urgent Provider, [facility] 1.2.840.114 [id number] Univers 14:50:07 15:10:07 Care Gian [facility] 350.1.13.10 ity of [place] 4.2.7.2.686 [place] as Professio [phone] [address] One 2020-08-14 2020-08-14 Outpatient R [facility] [id number] Univers 15:00:00 15:00:00 ity of [facility] 2020-08-14 2020-08-14 Orders Doctor GUNN 1.2.840.114 [id number] Univers 00:00:00 00:00:00 Only Unassigned, SANDRA 350.1.13.10 [place] HOSPITAL 4.2.7.2.686 Gordon as [phone] [facility] [address] 2020-08-04 2020-08-04 Telephone [facility] 1.2.840.114 [id number] Univers 00:00:00 00:00:00 Sendy dunbarPEC 350.1.13.10 ity of [place]2.7.2.686 [place] [id number] [facility] [address] [facility] 2020-07-21 2020-07-21 Outpatient R [facility] [id number] Univers 08:15:00 08:15:00 SENDY DUNBAR of [facility] 2020-07-21 2020-07-21 [employer] [place], [place] Lab Main [facility] 1.2.8 40.114 [id number] Univers 07:55:44 08:10:44 Visit Sendy Doty 350.1. 13.10 ity of [place].2.686 [place] [facility] [phone] Dc dical [address] 2020-07-20 2020-07-20 Office Sendy Doty [facility] 1.2 .840.114 [id number] Univers 07:52:35 09:06:31 Visit Katarzyna CoburnPEC 350.1.13 .10 ity of [place].2.7.2.686 [place] [phone] [address] [facility]ETES CLINIC 2020-07-20 2020-07-20 Outpatient R SHELBIE [facility] [id number] Univers 08:00:00 08:00:00 KATARZYNA ity o f [facility] 2020-07-20 2020-07-20 Letter Doctor GUNN 1.2.840.114 [id number] Univers 00:00:00 00:00:00 (Out) Unassigned, SANDRA 350.1.13.10 [place]y of [place] [facility] 4.2.7.2.686 [place] as [phone] [facility] [address] 2020-07-18 2020-07-18 [facility] 1.2.840.114 [id number] Univers 00:00:00 00:00:00 Bennettjoelle [place] 350.1.13.10 i [place] [phone] Dc dical nal 204 [facility] 2020-07-17 2020-07-17 [employer] [place] [place] [facility] 1.2.8 40.114 [id number] Univers 11:36:23 11:51:23 Visit Bennett Cline 350.1.13.10 [place] [phone] Dc dical nal 353 [facility] 2020-07-17 2020-07-17 [facility] [id number] Univers 11:45:00 11:45:00 BENNETT ity [facility] 2020-07-10 2020-07-10 Telephone [facility] 1.2.840.114 [id number] Univers 00:00:00 00:00:00 Sendy dunbarPEC 350.1.13.10 ity of [place] 4.[address] [facility] [phone] [address] [facility] 2020-06-05 2020-06-05 Out[facility] [id number] Univers 09:00:00 09:00:00 BENNETT ity [facility] 2020-06-05 2020-06-05 Refill [facility] 1.2.840.114 [id number] Univers 00:00:00 00:00:00 Sendy dunbar 350.1.13.10 ity of [facility] 4[place] [phone] [address] [facility] 2020-06-01 2020-06-01 Office Sendy Doty [facility] 1.2 .840.114 [id number] Univers 10:00:14 11:11:07 Visit Katarzyna Coburn MULTISPEC 350.1.13 .10 [place] [phone] [facility] [address] [facility] 2020-06-01 2020-06-01 Outpatient R SHELBIE [facility] [id number] Univers 10:00:00 10:00:00 KATARZYNA ity o f [facility] 2020-06-01 2020-06-01 [employer] Vtc-Lab [facility] 1.2.840.114 [id number] Univers 08:48:48 09:03:48 Visit Katarzyna Coburn MULTISPEC 350.1.13 .10 ity of [place]AL[place] 4.2.7.2.[address] [facility] [place] [phone] [facility] [address] [place] [facility] 2020-05-29 2020-05-29 Outpatient R [facility] [id number] Univers 13:30:00 13:30:00 ity of [facility] 2020-05-22 2020-05-22 [employer] Andres, [place] [facility] Room 1 - [facility] 1.2.840.114 [id number] Univers 15:54:31 16:54:31 Visit Tomeka Reed 350.1.13.10 it[place] [phone] [address] 2020-05-22 2020-05-22 Outpatient R [facility] [id number] Univers 16:00:00 16:00:00 ity of [facility] 2020-05-12 2020-05-12 [facility] 1.2.840.114 [id number] Univers 00:00:00 00:00:00 Tomeka Cazares 350.1.13.10 it[place] of [place] [phone] Dc dic[address] 2020-05-09 2020-05-09 Office [facility] 1.2.840.114 [id number] Univers 15:36:13 16:14:31 Visit Qiangjun [place] 350.1.13.10 ity of [place] [phone] [facility] 059 [facility] 2020-05-09 2020-05-09 Outpatient R DEREK, [facility] [id number] Univers 16:00:00 16:00:00 TOMEKA lopezy o f [facility] 2020-05-04 2020-05-04 Outpatient R AGUILA, [facility] [id number] Univers 12:00:00 12:00:00 RHEA ity [facility] 2020-05-01 2020-05-01 Office [facility] 1.2.840.114 [id number] Univers 14:58:17 16:21:19 Visit Russellful [facility] 350.1.13.10 ity of [place] 4.2.7.2.686 [place] as Professio [phone] [facility] 044 [facility] 2020-05-01 2020-05-01 [employer] Lab, Adc [facility] Pob I [facility] 1.2. 840.114 [id number] Univers 15:50:40 16:10:40 Visit Spr[place] RiverAlex delarosadiogenes [facility] 350.1.13.1 0 ity of [place] 4.2.7.2.686 [place] Professio [phone] [facility] 044 [facility] 2020-05-01 2020-05-01 [facility] [id number] Univers 15:00:00 15:00:00 ISREAL ity o f [facility] 2020-04-22 2020-04-22 Telephone [facility] 1.2.354.375 [id number] Univers 00:00:00 00:00:00 Brenda Damon [place] 350.1.13.10 ity of [place] [phone] [facility] 204 [facility] 2020-04-19 2020-04-19 Office [facility] 1.2.840.114 [id number] Univers 13:49:11 14:35:45 Visit Brenda Nelson [place] 350.1.13.10 ity of [place] [phone] Dc dical nal [address] 2020-04-19 2020-04-19 Outpatient R IJEOMA [facility] [id number] Univers 14:00:00 14:00:00 BRENDA ity of [facility] 2020-04-18 2020-04-18 Telephone Gamilla-Cru [facility] 1.2.840.114 [id number] Univers 00:00:00 00:00:00 Sendy dunbar MULTISPEC 350.1.13.10 ity of [facility] 4.2.7.2.686 [place] [phone] [facility] AND [place] [address] [facility] 2020-04-17 2020-04-17 Transition Kamilla Bass 1.2.840.114 [id number] Univers 00:00:00 00:00:00 of Care Haven Rodriguez 350.1.13.10 i ty of [place]2.7.2.[place] [phone] [facility] [address] 2020-04-13 2020-04-14 Hospital Valeriy Regla J [facility] 1.2.84 0.114 [id number] Univers 08:07:00 13:15:00 Encounter Moris Muñoz 350.1.13.10 ity of [place].686 [place] [phone] [facility] [address] 2020-04-13 2020-04-14 Outpatient X MORIS MUÑOZ [facility] AKANKSHA [id number] Univers 08:07:00 13:15:00 ity of [facility] 2020-04-13 2020-04-13 Refcari Rivera [facility] 1.2.840.114 [id number] Univers 00:00:00 00:00:00 [facility] 350.1.13.10 it y of [place] 4.2.7.2.686 [place] Professio [phone] Dc dical nal [address] Office Building One 2020-03-16 2020-03-16 Ana Logan [facility] 1.2.840.114 [id number] Univers 00:00:00 00:00:00 Wondiful A Health 350.1.13.10 ity of [place] 4.2.7.2.686 [place] Professio [phone] [address] 2020-03-12 2020-03-12 Refcari [facility] 1.2.840.114 [id number] Univers 00:00:00 00:00:00 Wondiful A [place] 350.1.13.10 ity of [place] [phone] [address] 2019-12-01 2019-12-01 [facility] 1.2.840.114 [id number] Univers 00:00:00 00:00:00 Wondiful A Health 350.1.13.10 ity of [place] 4.2.7.2.686 [place] Professio [phone] [address] 2019-11-17 2019-11-17 Outpatient R DEREK [facility] [id number] Univers 14:40:00 14:40:00 TOMEKA ity o f [facility] 2019-10-22 2019-10-22 Outpatient R JAM ROTHMAN [facility] [id number] Univers 15:15:00 15:15:00 ity of [facility] 2019-10-22 2019-10-22 Office Jam [facility] 1.2.840.114 [id number] Univers 14:59:42 15:14:42 Visit R Y 350.1.13.10 it y of [facility] 4.2.7.2.686 [place] as BANK [phone] [facility] BLDG. [address] 2019-10-12 2019-10-12 Telephone [facility] 1.2.840.114 [id number] Univers 00:00:00 00:00:00 Wondiful A Health 350.1.13.10 ity of [place] 4.2.7.2.686 [place] Professio [phone] [address] 2019-10-08 2019-10-08 [facility] 1.2.840.114 [id number] Univers 00:00:00 00:00:00 Wondiful A Health 350.1.13.10 ity of [place] 4.2.7.2.686 [place] Professio [phone] [address] 2019-10-06 2019-10-06 Telephone Desmond, [facility] 1.2.840.114 [id number] Univers 00:00:00 00:00:00 Wondiful A [place] 350.1.13.10 ity of [place] [phone] [address] 2019-10-06 2019-10-06 Telephone Gus [facility] 1.2.519.220 [id number] Univers 00:00:00 00:00:00 [facility] 350.1.13.10 it y of [place] 4.2.7.2.686 [place] Professio [phone] [address] 2019-10-04 2019-10-04 [employer] Lab, Adc Fam Pob I [facility] 1.2. 840.114 [id number] Univers 10:26:47 10:41:47 Visit Unknown, Attending Health 350.1.13.10 ity of [place] 4.2.7.2.686 [place] as Professio [phone] [address] 2019-10-04 2019-10-04 Outpatient R UNKNOWN, [facility] [id number] Univers 10:15:00 10:15:00 ATTENDING ity of [facility] 2019-09-29 2019-09-29 Outpatient R SANDRA, [facility] [id number] Univers 14:15:00 14:15:00 JUAN FRANCISCO ity o f [facility] 2019-09-27 2019-09-27 Outpatient GUU_SHENG_Y [facility] [phone] [place] 11:21:00 11:21:00 [place] [address] [facility] 2019-09-21 2019-09-24 Telemedici Parminder Rueda [facility] 1.2. 840.114 [id number] Univers 07:55:28 10:45:31 ne Visit Gamilla-Crudo, Sendy K N MULTISPEC 350. 1.13.10 ity of [place].2.[place].2.686 [place] CENTER [phone] [facility] AND [facility] [address] [facility] 2019-09-21 2019-09-21 Outpatient R PATRICK-JAMI [facility] [id number] Univers 09:00:00 09:00:00 SENDY ity [facility] 2019-09-21 2019-09-21 Telephone Desmond [facility] 1.2.840.114 [id number] Univers 00:00:00 00:00:00 Isreal Cazares 350.1.13.10 ity of [place] [phone] [address] 2019-09-17 2019-09-17 Office Darryn [facility] 1.2.840.114 [id number] Univers 09:43:15 22:48:02 Visit Corey PRIMARY 350.1.13.10 it y of C[place].2.[place] [phone] [facility] [address] 2019-09-17 2019-09-17 [employer] Pcp-Lab [facility] 1.2.840.114 [id number] Univers 11:22:17 13:47:54 Visit TorresconorCorey PRIMARY 350.1.13.10 ity of C[place] 4[place]2.[place].2.[place] [phone] [facility] [address] 2019-09-17 2019-09-17 Outpatient R DARRYN [facility] [id number] Univers 10:00:00 10:00:00 [facility] [place] 2019-09-16 2019-09-16 [facility]ill [facility] 1.2.840.114 [id number] Univers 00:00:00 00:00:00 [facility] 350.1.13.10 it y of [place] 4.2.7.2.686 [place] as Professio [phone] [address] Office Building One 2019-09-16 2019-09-16 Refill Nicole [facility] 1.2.840.114 [id number] Univers 00:00:00 00:00:00 [facility] 350.1.13.10 it y of [place] 4.2.7.2.686 [place] as Professio [phone] [place] [address] [address] One 2019-09-14 2019-09-14 Telemedici Desmond [facility] 1.2.840.114 [id number] Univers 07:56:46 15:55:43 ne Visit Wondiful A [place] 350.1.13.10 ity of [place].2.7.2.[place] [phone] [place] [address] [address] Building 2019-09-14 2019-09-14 Outpatient R DESMOND [facility] [id number] Univers 15:30:00 15:30:00 WONDIFUL ity o f [facility] 2019-09-10 2019-09-10 Transition Kamilla Mak 1.2.840.114 [id number] Univers 00:00:00 00:00:00 of Care Luh Rodriguez 350.1.13.10 i ty of [place].2.7.2.686 [place] [phone] [facility] [address] 2019-09-07 2019-09-09 Hospital Anthony [facility] 1.2.840.1 14 [id number] Univers 06:51:10 15:37:00 Encounter Era Snow [facility] 350.1.13.1 0 ity of [place] 4.2.7.2.686 [facility] [phone] [facility] [address] (CLC) 2019-09-07 2019-09-09 Inpatient X DANIEL [facility] [id number] Univers 06:51:10 15:37:00 ANTONIO ity of [facility] 2019-09-09 2019-09-09 Telephone prollieJami [facility] 1.2.840.114 [id number] Univers 00:00:00 00:00:00 Sendy dunbar MULTISPEC 350.1.13.10 ity of [place]2.[place].2.686 [place] C[place] [phone] [facility] [place] [address] [facility] 2019-09-07 2019-09-07 Orders Doctor GUNN 1.2.840.114 [id number] Univers 00:00:00 00:00:00 Only UnassignedSANDRA 350.1.13.10 ity of [place] [facility] 4.2.7.2.686 Gordon as [phone] [facility] [address] 2019-08-31 2019-08-31 Transition Kamilla Ortiz 1.2.840.114 [id number] Univers 00:00:00 00:00:00 of Care Yuki [place]olinay 350.1.13.10 it y of [place]2.7.2.686 [place] [phone] [facility] [address] 2019-08-30 2019-08-30 Outpatient R DESMOND [facility] [id number] Univers 08:15:00 08:15:00 WONDIFUL ity o f [facility] 2019-08-30 2019-08-30 Telemedici [facility] 1.2.840.114 [id number] Univers 07:05:23 07:20:23 ne Visit Wondiful Nelson Cazares 350.1.13.10 ity of [place].2.7.2.686 [place] [facility] [phone] Dc dical nal 044 [facility] 2019-08-27 2019-08-28 Emergency Cristian Garcia [facility] 1.2.840. 114 [id number] Univers 13:15:53 18:40:00 Moris Muñoz 350.1.13.10 ity of [place].2.686 [place] [phone] [facility] [address] 2019-08-27 2019-08-28 Outpatient X MORIS MUÑOZ [facility] AKANKSHA [id number] Univers 13:15:53 18:40:00 ity of [facility] 2019-08-27 2019-08-27 Telephone VELIA Rivera 1.2.840.114 [id number] Univers 00:00:00 00:00:00 Abner FLORES 350.1.13.10 it y of HOSPITAL 4.2.7.2.686 [place] as [phone] [facility] [address] 2019-08-27 2019-08-27 Orders Doctor GUNN 1.2.840.114 [id number] Univers 00:00:00 00:00:00 Only Unassigned, SANDRA 350.1.13.10 ity of [place] [facility] 4.2.7.2.686 Gordon as [phone] [facility] [address] 2019-08-25 2019-08-25 Urgent StephanieAmarilisEkta M 1.2.840.1 [id number] Univers 08:54:41 10:07:31 Care Pob1, Acute Care Clinic 69793.1.1 ity of 3.104.2.7 [place] .3.179676 Medica l .[address] 2019-08-25 2019-08-25 Outpatient R STEPHANIE [facility] 715 [id number] Univers 09:00:00 09:00:00 , EKTA it y of [facility] 2019-08-25 2019-08-25 Travel 1.2.840.1 1.2.202.910 [id number] Univers 00:00:00 00:00:00 24463.1.1 350.1.13.10 ity of 3.104.2.7 4[place].7.3.698 [place] .3.393149 084.8 Medica l .[address] [place] 2019-08-19 2019-08-19 Telemedici Desmond, 1.2.840.5 [id number] Univers 07:17:45 10:01:19 ne Visit Wondiful A 18807.1.1 ity of 3.104.2.7 [place] .3.932566 Medica l .[address] [place] 2019-08-19 2019-08-19 Outpatient R DESMOND [facility] [id number] Univers 09:15:00 09:15:00 WONDIFUL ity o f [facility] 2019-08-16 2019-08-16 Telephone Stephanie 1.2.840.5 [id number] Univers 00:00:00 00:00:00 , Ekta 25215.1.1 ity of M 3.104.2.7 [place] .3.936268 Medica l .[address] [place] 2019-08-16 2019-08-16 Nurse Olayinka 1.2.840.8 [id number] [id number] Univers 00:00:00 00:00:00 Triage Mookie 53246.1.1 ity of 3.104.2.7 [place] .3.231013 Medica l .[address] [place] 2019-08-14 2019-08-14 Telephone Karolina, 1.2.840.6 [id number] 752 [id number] Univers 00:00:00 00:00:00 Mariah P 02980.1.1 it y of 3.104.2.7 [place] .3.074766 Medica l .[address] [place] 2019-08-14 2019-08-14 Telephone [place], 1.2.840.9 [id number] Univers 00:00:00 00:00:00 Wondiful A 56594.1.1 i ty of 3.104.2.7 [place] .3.240478 Medica l .[address] [place] 2019-08-13 2019-08-13 Outpatient R STEPHANIE [facility] RAD [id number] Univers 14:03:21 23:59:00 , EKTA it y of [facility] 2019-08-13 2019-08-[address] [facility] 1.2.840.9 [id number] Univers 14:03:00 23:59:00 Encounter , Ekta 97475.1.1 ity of M 3.104.2.7 [place] .3.866299 Medica l .[address] [place] 2019-08-13 2019-08-13 Urgent Breonna Bautista 1.2.840.1 [id number] Univers 12:51:53 14:24:15 Care Pob1, Acute Care Clinic 10594.1.1 ity of 3.104.2.7 [place] .3.839089 Medica l .[address] [place] 2019-08-13 2019-08-13 Telemedici Breonna Bautista 1.2.840.1 [id number] Univers 09:25:40 10:46:38 ne Visit Care, Provider 27 - Adult & [place] [address].1.1 ity of 3.104.2.7 [place] .3.450646 Medica l .[address] [place] 2019-08-13 2019-08-13 Telephone Pcp, 1.2.840.1 [id number] [id number] Univers 00:00:00 00:00:00 Patient 25903.1.1 ity of Does Not 3.104.2.7 [place] Have A .3.409852 Medica l .[address] [place] 2019-08-13 2019-08-13 Telephone Erin Madera 1.2.840.6 [id number] Univers 00:00:00 00:00:00 01807.1.1 ity of 3.104.2.7 [place] .3.279957 Medica l .[address] [place] 2019-07-27 2019-07-27 Office Stephan Jam 1.2.840.5 [id number] Univers 08:28:05 09:25:36 Visit R 61442.1.1 ity of 3.104.2.7 [place] .3.485579 Medica l .[address] [place] 2019-07-27 2019-07-27 Outpatient R JAM ROTHMAN [facility] [id number] Univers 08:45:00 08:45:00 ity of [facility] 2019-07-26 2019-07-26 Outpatient R JAM ROTHMAN [facility] 542 [id number] Univers 14:00:00 14:00:00 ity of [facility] 2019-07-16 2019-07-16 [employer] Katarzyna Coburn 1.2.840.1 1 [id number] Univers 09:17:13 09:32:13 Visit Pob, Adc Lab Main 03470.1.1 ity of 3.104.2.7 [place] .3.863753 Medica l .[address] [place] 2019-07-16 2019-07-16 Outpatient R SHELBIE [facility] [id number] Univers 09:15:00 09:15:00 KATARZYNA ity o f [facility] 2019-07-16 2019-07-16 Orders Doctor 1.2.840.7 [id number] Univers 00:00:00 00:00:00 Only Unassigned, 99427.1.1 ity of [place] 3.104.2.7 [place] .3.360707 Medica l .[address] [place] 2019-06-24 2019-06-24 Refill [place], 1.2.840.8 [id number] [id number] Univers 00:00:00 00:00:00 Wondiful A 54351.1.1 i ty of 3.104.2.7 [place] .3.983976 Medica l .8 [address] 2019-06-14 2019-06-14 Outpatient R GAMILLA-CRU [facility] 049 [id number] Univers 08:00:00 09:39:14 SENDY DUNBAR ity of [facility] 2019-06-14 2019-06-14 Office Gamilla-Cru 1.2.840.3 [id number] Univers 07:42:14 09:39:14 Visit Sendy dunbar 46159.1.1 ity of 3.104.2.7 [place] .3.548085 Medica l .8 [address] 2019-06-13 2019-06-13 Refill [place], 1.2.840.4 [id number] Univers 00:00:00 00:00:00 Wondiful A 14461.1.1 i ty of 3.104.2.7 [place] .3.576106 Medica l .8 [address] 2019-06-08 2019-06-08 Case Desmond, 1.2.840.9 [id number] Univers 00:00:00 00:00:00 Management Wondiful A 30289.1.1 ity of 3.104.2.7 [place] .3.258927 Medica l .8 [address] 2019-06-07 2019-06-07 Telephone [place], 1.2.840.1 [id number] Univers 00:00:00 00:00:00 Wondiful A 19835.1.1 i ty of 3.104.2.7 [place] .3.507680 Medica l .8 [address] 2019-06-03 2019-06-03 Case [place], 1.2.840.1 [id number] [id number] Univers 00:00:00 00:00:00 Management Wondiful A 91461.1.1 ity of 3.104.2.7 [place] .3.376799 Medica l .8 [address] 2019-06-01 2019-06-01 Hospital [place], 1.2.840.2 [id number] [id number] Univers 10:51:00 23:59:00 Encounter Isreal Damon 48901.1.1 ity of 3.104.2.7 [place] .3.975421 Medica l .[address] [place] 2019-05-31 2019-05-31 [employer] Isreal Logan 1.2.840.1 1 [id number] Univers 09:02:58 09:17:58 Visit Podiamond, Adc Lab Main 64709.1.1 ity of 3.104.2.7 [place] .3.180372 Medica l .[address] [place] 2019-05-31 2019-05-31 Office Desmond, 1.2.840.7 [id number] Univers 07:56:06 08:42:37 Visit Isreal Damon 47574.1.1 i ty of 3.104.2.7 [place] .3.906011 Medica l .[address] [place] 2019-05-21 2019-05-21 Refill [facility] 1.2.840.114 [id number] Univers 00:00:00 00:00:00 Isreal Damon Health 350.1.13.10 ity of [place] 4.2.7.2.686 [place] as Professio [phone] Dc dical nal [address] [place] Office [facility] One 2019-05-14 2019-05-14 Ancillary Olya Powers [facility] 1.2.840. 114 [id number] Univers 08:40:42 11:31:55 Visit Timmy Hernandez 350.1.13.10 ity of [place].2.[place] Profess[place] [phone] Dc dical nal 179 [facility] 2019-05-13 2019-05-13 [facility] 1.2.840.114 [id number] Univers 14:46:00 23:59:00 Encounter Goldie Cazares 350.1.13.10 ity of [place].2.686 [place] [phone] [facility] noel [address] 2019-05-13 2019-05-13 Orders Doctor GUNN 1.2.840.114 [id number] Univers 00:00:00 00:00:00 Only Unassigned, SANDRA 350.1.13.10 ity of [place] [facility] 4.2.7.2.686 Gordon as [phone] [facility] [address] 2019-05-07 2019-05-07 Outpatient Matt JOSEPH [facility] [id number] Univers 10:30:00 11:32:31 GOLDIE ity o john [facility] 2019-04-30 2019-04-30 Outpatient R DESMOND [facility] [id number] Univers 10:52:18 23:59:00 WONDIFUL ity o john [facility] 2019-04-12 2019-04-12 Outpatient Matt DESMOND [facility] [id number] Univers 14:32:54 23:59:00 WONDIFUL ity o f [facility] 2018-12-31 2018-12-31 Letter [facility] 1.2.840.114 [id number] Univers 00:00:00 00:00:00 (Out) Angelita Damon MULTISPEC 350.1.13.10 ity of [place].2.[place].2.686 [place] [phone] [facility] [place] [address] DI[facility]ES CL[facility]IC 2018-12-25 2018-12-25 [employer] 1, Adc Lab [facility] 1.2.840.114 [id number] Univers 16:37:53 16:52:53 Visit Isreal Logan 350.1.13. 10 ity of [place].2.7.2.686 [place] [phone] [facility] [address] 2018-12-25 2018-12-25 Office Desmond [facility] 1.2.840.114 [id number] Univers 15:36:08 16:25:20 Visit Isreal Damon Health 350.1.13.10 ity of [place] 4.2.7.2.686 Gordon as Professio [phone] [facility] [address] Office Building One 2018-12-25 2018-12-25 Orders Doctor VELIA 1.2.840.114 [id number] Univers 00:00:00 00:00:00 Only Unassigned, SANDRA 350.1.13.10 ity of [place] [facility] 4.2.7.2.686 Gordon as [phone] [place] [address] Branch 2018-11-16 2018-11-16 Orders Doctor VELIA 1.2.840.114 [id number] Univers 00:00:00 00:00:00 Only Unassigned, SANDRA 350.1.13.10 ity of [place] [facility] 4.2.7.2.686 Gordon as [phone] [address] Results Test Description Test Time Test Comments Results Result Comments Source Basic Metabolic Panel (NA, K, CL, CO2, Glucose, BUN, 2022-05 20:18:40 Creatinine, [place]) Test Item Value Reference Range Interpretation Comme nts NA (test code = 6621064628) 141 mmol/L 135-145 K (test code = 2744337952) 4.7 mmol/L 3.5-5.0 CL (test code = 7610188352) 109 mmol/L 98-108 H CO2 TOTAL (test code = 6131014215) 28 mmol/L 23-31 AGAP (test code = 0678999966) 4 2-16 BUN (test code = 0782716673) 18 mg/dL 7-23 GLUCOSE (test code = 0291074142) 91 mg/dL 70-110 CREATININE (test code = 1.50 mg/dL 0.60-1.25 H 9493523147) CALCIUM (test code = 3695240187) 9.9 mg/dL 8.6-10.6 eGFR (test code = 1186278691) 46.8 mL/min/1.73m2 MARLENE (test code = MARLENE) Association of Glomerular Filtration Rate (GFR) and Staging of Kidney Disease* + +-------- + ------+| GFR (mL/min/1.73 m2) ?| With Kidney Damage ?| ?Without Kidney Damage+ +-- + +| ?>90 ?| ?Stage one ?| ? Normal ?+ +------- + -------+| ?60-89 ?| ?Stage two ?| ? Decreased GFR ? + +-------- + ------+| ?30-59 ?| ?Stage three ?| ? Stage three ? + +-------- + ------+| ?15-29 ?| ?Stage four ? | ? Stage four ?+ +------- + -------+| ?<15 (or dialysis) ? ?| ?Stage five ? | ? Stage five ?+ +------- + -------+ *Each stage assumes the associated GFR level has been in effect for at least three months. ?Stages 1 to 5, with or without kidney disease, indicate chronic kidney disease. Notes: Determination of stages one and two (with eGFR >59mL/min/1.73 m2) requires estimation of kidney damage for at least three months as defined by structural or functional abnormalities of the kidney, manifested by either:Pathological abnormalities or Markers of kidney damage (including abnormalities in the composition of the blood or urine or abnormalities in imaging tests). Lab Interpretation (test code = Abnormal 93934-2) [facility] [id number] 20:18:40 Test Item Value Reference Range Interpretation Comments MAGNESIUM (test code = 6999607608) 1.9 mg/dL 1.7-2.4 Lab Interpretation (test code = Normal 80881-6) [facility] [id number] 20:18:19 Test Item Value Reference Range Interpretation Comments PHOSPHORUS (test code = 5337057691) 2.9 mg/dL 2.5-5.0 Lab Interpretation (test code = Normal 99905-4) [facility] with [id number] 20:09:39 Test Item Value Reference Range Interpretation Comments WBC (test code = 4.58 See_Comment [Automated 2190-2) message] The sy stem which generated this result transmitted reference range : 4.20 - 10.70 10*3/?L. The reference range was not used to interpret this result as normal/abnormal . RBC (test code = 4.15 See_Comment L [Automated 340-8) message] The sy stem which generated this result transmitted reference range : 4.26 - 5.52 10*6/?L. The reference range was not used to interpret this result as normal/abnormal . HGB (test code = 12.6 g/dL 12.2-16.4 718-7) HCT (test code = 39.8 % 38.4-49.3 4544-3) MCV (test code = 95.9 fL 81.7-95.6 H 787-2) MCH (test code = 30.4 pg 26.1-32.7 785-6) MCHC (test code = 31.7 g/dL 31.2-35.0 786-4) RDW-SD (test code = 49.0 fL 38.5-51.6 88582-8) RDW-CV (test code = 13.7 % 12.1-15.4 788-0) PLT (test code = 133 See_Comment L [Automated 777-3) message] The sy stem which generated this result transmitted reference range : 150 - 328 10*3/ ?L. The reference r hesham was not used to interpret this result as normal/abnormal . MPV (test code = 12.2 fL 9.8-13.0 36631-3) IPF % (test code = 9.8 % 1.2-10.7 Platelet count [id number]) measured by fluorescence method. NRBC/100 WBC (test 0.0 See_Comment [Automat ed code = [id number]) message] The system which generated this result transmitted reference range : 0.0 - 10.0 /100 WBCs. The refer ence range was not u sed to interpret th is result as normal/abnormal . NRBC x10^3 (test code See_Comment [Auto mated = 6603994947) message] The s ystem which generated this result transmitted reference range : 10*3/?L. The reference range was not used to interpret this result as normal/abnormal . GRAN MAT (NEUT) % 55.7 % (test code = 770-8) IMM GRAN % (test code 0.20 % = 4480396287) LYMPH % (test code = 25.3 % 736-9) MONO % (test code = 13.8 % 5905-5) EOS % (test code = 4.1 % 713-8) BASO % (test code = 0.9 % 706-2) GRAN MAT x10^3(ANC) 2.55 10*3/uL 1.99-6.95 (test code = 3225354785) IMM GRAN x10^3 (test 0.00-0.06 code = 0527685984) LYMPH x10^3 (test code 1.16 10*3/uL 1.09-3.23 = 731-0) MONO x10^3 (test code 0.63 10*3/uL 0.36-1.02 = 742-7) EOS x10^3 (test code = 0.19 10*3/uL 0.06-0.53 711-2) BASO x10^3 (test code 0.04 10*3/uL 0.01-0.09 = 704-7) Lab Interpretation Abnormal (test code = 68453-0) [id number] 00:00:00 Test Item Value Reference Range Interpretation Comments DD-cfDNA (External See_Comment [Automat ed message] The Results) (test code = system which generated this 5126) result transmit sonja reference range : <=1.0. The reference range was not used to interpr et this result as frank l/abnormal. [facility] GRP A STREP (MOLECULAR)2022-03-12 22:00:00 Test Item Value Reference Range Interpretation Comments POCT GP A STREP (test code = negative Negative - Negative 39724-1) [facility] GRP A STREP (MOLECULAR)2022-03-12 22:00:00 Test Item Value Reference Range Interpretation Comments POCT GP A STREP (test code = negative Negative - Negative 62675-5) [facility] HEMOGLOBIN A1C [id number] 17:04:00 Test Item Value Reference Range Interpretation Comments POCT HBA1C (test code = 4548-4) 5.6 % 4-6 [facility] HEMOGLOBIN A1C [id number] 17:04:00 Test Item Value Reference Range Interpretation Comments POCT HBA1C (test code = 4548-4) 5.6 % 4-6 [facility]IR[facility] (HCV) BY QUANTITATIVE NAAT 2022 20:04:37 Test Item Value Reference Range Interpretation Comments HCV Quantitative Not Detected Not Detected Interpretation (test code = 8416364507) MARLENE (test code = MARLENE) The Aptima HCV Quant Dx assay is an FDA-approved real-time product development director-mediated amplification (TMA) test used for both detection and quantitation of hepatitis C virus (HCV) RNA in human serum and plasma from HCV-infected individuals. ?It is intended for use as an aid in the diagnosis of active HCV infection and the management of HCV-infected patients undergoing HCV antiviral drug therapy. ?It is not approved for use as a screening test for the presence of HCV RNA in blood or blood products. The quantitative range of this assay is 1.00 - 8.00 log IU/mL or 10 - 100,000,000 IU/mL. An interpretation of "Not Detected" does not rule out the presence of inhibitors in the patient specimen or HCV RNA concentration below the level of detection of the test. ?Care should be taken when interpreting any single viral load determination. Detected, not Quantifiable: HCV RNA detected, but at a level below 10 IU/mL (1.0 log IU/mL). ?HCV RNA concentration is below the lower limit of quantitation of the assay. Indeterminate: Error indicated in the generation of the result. ?Please submit a new specimen for repeat testing if clinically indicated. Lab Interpretation Normal (test code = 67283-2) [facility], [id number] 16:13:27 Test Item Value Reference Range Interpretation Comments FK 506 (test code = 5 ng/mL 0151042651) MARLENE (test code = Target/Therapeutic Range MARLENE) KIDNEY ? Early (<3 mo) ? ? 8-12 ? Late ?(>3 mo) ? ? 5-10 ?SPK / AIDEN ? Early (<3 mo) ? ? 10-15 ? Mid ? (3-6 mo) ? ?8-10 ? Late ?(>6 mo) ? ? 5-8 ?LIVER ? Early (<3 mo) ?HCV: ? 5-7 ?Tumor: ? ? ? 5-7 ?Autoimmune: ?8-10 ? Late (>3 mo) ? ? ?~5 ?HEART ? Early (<6 mo) ? ? 12-15 ? Late ?(>6 mo) ? ? 8-12 ?LUNG ? Early (<6 mo) ? ? 12-15 ? Mid ? (7-12 mo) ? 10-15 ? Late ?(>12 mo) ? ?8-10 Method by: ?[employer], Product Safety Compliance Leader i1000 [facility] with [id number] 22:53:40 Test Item Value Reference Range Interpretation Comments WBC (test code = See_Comment [Automated 6690-2) message] The sy stem which generated this result transmitted reference range : 4.20 - 10.70 10*3/?L. The reference range was not used to interpret this result as normal/abnormal . RBC (test code = See_Comment L [Automated 789-8) message] The sy stem which generated this result transmitted reference range : 4.26 - 5.52 10*6/?L. The reference range was not used to interpret this result as normal/abnormal . HGB (test code = 13.2 g/dL 12.2-16.4 718-7) HCT (test code = 41.3 % 38.4-49.3 4544-3) MCV (test code = 97.2 fL 81.7-95.6 H 787-2) MCH (test code = 31.1 pg 26.1-32.7 785-6) MCHC (test code = 32.0 g/dL 31.2-35 786-4) RDW-SD (test code = 47.1 fL 38.5-51.6 14550-5) RDW-CV (test code = 13.1 % 12.1-15.4 788-0) PLT (test code = See_Comment L [Automated 777-3) message] The sy stem which generated this result transmitted reference range : 150 - 328 10*3/ ?L. The reference r hesham was not used to interpret this result as normal/abnormal . MPV (test code = 12.8 fL 9.8-13 89419-8) IPF % (test code = 6.8 % 1.2-10.7 Platelet count 4203874428) measured by fluorescence method. NRBC/100 WBC (test See_Comment [Automat ed code = 2791253277) message] The system which generated this result transmitted reference range : 0.0 - 10.0 /100 WBCs. The refer ence range was not u sed to interpret th is result as normal/abnormal . NRBC x10^3 (test code See_Comment [Auto mated = 8312455264) message] The s ystem which generated this result transmitted reference range : 10*3/?L. The reference range was not used to interpret this result as normal/abnormal . GRAN MAT (NEUT) % 72.9 % (test code = 770-8) IMM GRAN % (test code 0.50 % = 1815254468) LYMPH % (test code = 14.6 % 736-9) MONO % (test code = 8.7 % 5905-5) EOS % (test code = 2.2 % 713-8) BASO % (test code = 1.1 % 706-2) GRAN MAT x10^3(ANC) 4.04 10*3/uL 1.99-6.95 (test code = 8829761509) IMM GRAN x10^3 (test 0.03 10*3/uL 0-0.06 code = 9148762159) LYMPH x10^3 (test code 0.81 10*3/uL 1.09-3.23 L = 731-0) MONO x10^3 (test code 0.48 10*3/uL 0.36-1.02 = 742-7) EOS x10^3 (test code = 0.12 10*3/uL 0.06-0.53 711-2) BASO x10^3 (test code 0.06 10*3/uL 0.01-0.09 = 704-7) Lab Interpretation Abnormal (test code = 64773-7) [facility] [id number] 21:15:06 Test Item Value Reference Range Interpretation Comments MAGNESIUM (test code = 0547070278) 1.7 mg/dL 1.7-2.4 Lab Interpretation (test code = Normal 23561-2) [facility]. METABOLIC PANEL ([id number])2022-01-24 21:15:06 Test Item Value Reference Range Interpretation Comments NA (test code = 140 mmol/L 135-145 8273840710) K (test code = 4.4 mmol/L 3.5-5 1270193027) CL (test code = 105 mmol/L 98-108 4286478113) CO2 TOTAL (test code = 29 mmol/L 23-31 1818276787) AGAP (test code = 2-16 1017579564) BUN (test code = 17 mg/dL 7-23 4988225859) GLUCOSE (test code = 119 mg/dL 70-110 H 4918340674) CREATININE (test code = 1.57 mg/dL 0.6-1.25 H 7198015877) TOTAL BILI (test code = 0.6 mg/dL 0.1-1.3 9227866269) CALCIUM (test code = 10.8 mg/dL 8.6-10.6 H 4746018374) T PROTEIN (test code = 8.4 g/dL 6.3-8.2 H 2705359905) ALBUMIN (test code = 4.4 g/dL 3.5-5 9966556193) ALK PHOS (test code = 76 U/L 34-122 0602976230) ALTv (test code = 23 U/L 5-50 1742-6) AST(SGOT) (test code = 42 U/L 13-40 H 4672707296) eGFR (test code = mL/min/1.73m2 0676133216) MARLENE (test code = MARLENE) Association of Glomerular Filtration Rate (GFR) and Staging of Kidney Disease* + --+ --+ ------+| GFR (mL/min/1.73 m2) ?| With Kidney Damage ?| ?Without Kidney Damage+ --------+ --------+ +| ?>90 ?| ?Stage one ?| ? Normal ?+ ---+ ---+ -------+| ?60-89 ?| ?Stage two ?| ? Decreased GFR ? + --+ --+ ------+| ?30-59 ?| ?Stage three ?| ? Stage three ? + --+ --+ ------+| ?15-29 ?| ?Stage four ? | ? Stage four ?+ ---+ ---+ -------+| ?<15 (or dialysis) ? ?| ?Stage five ? | ? Stage five ?+ ---+ ---+ -------+ *Each stage assumes the associated GFR level has been in effect for at least three months. ?Stages 1 to 5, with or without kidney disease, indicate chronic kidney disease. Notes: Determination of stages one and two (with eGFR >59mL/min/1.73 m2) requires estimation of kidney damage for at least three months as defined by structural or functional abnormalities of the kidney, manifested by either:Pathological abnormalities or Markers of kidney damage (including abnormalities in the composition of the blood or urine or abnormalities in imaging tests). Lab Interpretation Abnormal (test code = 50675-1) [facility]osph[facility] [id number] 21:14:45 Test Item Value Reference Range Interpretation Comments PHOSPHORUS (test code = 4678784686) 2.8 mg/dL 2.5-5 Lab Interpretation (test code = Normal 76966-7) [facility]
[2022-06-29 14:45] LABS: Absolute Lymphocytes (CBC) 0.5 K/uL (0.7-4.9); Hematocrit 34.3 % (39.6-49.0); Lymphocytes % 9.8 % (15.3-44.8); MCV 91.7 fL (80-100); MPV 8.7 fL (7.6-11.3); RBC Red Blood Cell Count 3.74 M/uL (4.33-5.43)
[2022-06-29 14:48] LABS: Protime INR 1.04
--- NOTE | 2022-06-29 15:02 | RAD REPORT ---
EXAM DESCRIPTION: CT - Head Brain Wo Cont - 06/29/2022 2:46 pm CLINICAL HISTORY: Syncope COMPARISON: None TECHNIQUE: Computed axial tomography of the head was obtained. IV contrast was not requested. All CT scans are performed using dose optimization technique as appropriate and may include automated exposure control or mA/KV adjustment according to patient size. FINDINGS: An intracranial bleed is not seen The ventricles are normal in caliber No extra-axial fluid collection is noted. 6 millimeter low-density area within the right aspect of the luis Mild to moderate low-density areas within periventricular, deep and subcortical white matter likely r epresent ischemic changes secondary to small vessel disease. Fluid within the sinuses/ mastoids is not seen. IMPRESSION: 6 millimeter low-density area within the luis. This may represent infarct. The age is i ndeterminate and should be correlated clinically. Evaluation with MRI may be helpful for further evaluation
[2022-06-29 15:06] LABS: Albumin 3.2 g/dL (3.4-5.0); Bilirubin Direct 0.1 mg/dL (0-0.2); Bilirubin Total 0.3 mg/dL (0.2-1.0); Magnesium 1.7 mg/dL (1.6-2.4); Protein, Total 7.3 g/dL (6.4-8.2); Troponin High Sensitivity 47.5 pg/mL (<58.9)
--- NOTE | 2022-06-29 15:46 | ER ---
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 Slid off chair down onto porch. + ETOH use last night and a couple today. Has not eaten yet today. No known fever EMS states: BP 91/56. HR NS. IV 20 G R FA 400 ml NS bolus given, BP 104/42 now, BS 145. Coronavirus screen: Vaccine status: Patient reports receiving the 2nd dose of the covid vaccine. Client denies travel out of the [place] in the last 14 days. At this time, the client does not indicate any symptoms associated with coronavirus-19. Ebola Screen: Patient denies travel to an Ebola-affected area in the 21 days before illness onset. No acute neurological deficit is noted. The patients blood glucose was checked before arriving to the hospital and was found to be normal. Initial Sepsis Screen: Does the patient meet any 2 criteria? No. Patient's initial sepsis screen is negative. Does the patient have a suspected source of infection? No. Patient's initial sepsis screen is negative. Risk Assessment: Do you want to hurt yourself or someone else? Patient reports no desire to harm self or others. Onset of symptoms was June 29, 2022. 14:20 Method Of Arrival: EMS ll1 14:20 Acuity: DON 2 ll1 Triage Assessment: 14:24 General: Appears in no apparent distress. Behavior is calm, cooperative, appropriate ll1 for age. Pain: Denies pain. Neuro: Reports dizziness, a syncopal episode weakness. Cardiovascular: No deficits noted. Respiratory: No deficits noted. Stroke Activation: Symptom onset < 3 hours Physician: Stroke Attending; Name: ; Notified At: ; Arrived At: Physician: Chief Stroke Resident; Name: ; Notified At: ; Arrived At: Physician: Stroke Resident; Name: ; Notified At: ; Arrived At: Physician: ED Attending; Name: ; Notified At: ; Arrived At: Physician: ED Resident; Name: ; Notified At: ; Arrived At: Historical: - Allergies: 14:23 No Known Allergies; ll1 - PMHx: 14:23 Hypertensive disorder; kidney issues; ll1 - PSHx: 14:23 kidney transplant; old dialysis access LUE; ll1 - Immunization history:: Client reports receiving the 2nd dose of the Covid vaccine. - Social history:: Smoking status: Patient denies any tobacco usage or history of. Screenin:24 [facility] ED Fall Risk Assessment (Adult) History of falling in the last 3 months, ll1 including since admission Yes- physiologic fall (2 pts) Score/Fall Risk Level 0 - 2 = Low Risk Oriented to surroundings, Maintained a safe environment, Educated pt \T\ family on fall prevention, incl call for assistance when getting out of bed, Hourly rounding (assess needs \T\ fall precautionary measures) done. Abuse screen: Denies threats or abuse. Nutritional screening: No deficits noted. Tuberculosis screening: No symptoms or risk factors identified. Assessment: 14:51 Reassessment: No changes from previously documented assessment. back from CT. ll1 14:56 VAN Scoring: Arm Drift: Patients demonstrates NO arm weakness. Patient is VAN Negative. ll1 Visual Disturbance: No visual disturbance noted. Aphasia: No aphasia noted. Neglect: No neglect noted. TNKase (Tenecteplase) Screening: Indications: Definite evidence of stroke, ischemic, embolic, or hypertensive: No. 15:07 Reassessment: No changes from previously documented assessment. Patient and/or family ll1 updated on plan of care and expected duration. Pain level reassessed. Patient is alert, oriented x 3, equal unlabored respirations, skin warm/dry/pink. 16:00 Reassessment: No changes from previously documented assessment. ll1 17:09 Reassessment: No changes from previously documented assessment. US at . ll1 18:00 Reassessment: No changes from previously documented assessment. Patient and/or family ll1 updated on plan of care and expected duration. Pain level reassessed. Patient is alert, oriented x 3, equal unlabored respirations, skin warm/dry/pink. 19:05 Reassessment: No changes from previously documented assessment. Patient and/or family ll1 updated on plan of care and expected duration. Pain level reassessed. Patient is alert, oriented x 3, equal unlabored respirations, skin warm/dry/pink. Vital Signs: 14:20 BP 114 / 69; Pulse 73; Resp 18; Temp 98.0(O); Pulse Ox 100% on R/A; Weight 90.72 kg; ll1 Height 5 ft. 9 in. (175.26 cm); Pain 0/10; 14:55 BP 123 / 68 Supine; Pulse 71; ll1 14:57 BP 126 / 63 Sitting; Pulse 69; ll1 14:59 BP 119 / 69 Standing; Pulse 73; ll1 17:00 BP 151 / 71; Pulse 56; Pulse Ox 100% on R/A; ll1 19:02 BP 158 / 78; Pulse 68; Resp 17; Pulse Ox 97% ; ll1 14:20 Body Mass Index 29.53 (90.72 kg, 175.26 cm) ll1 Hel[place] Coma Score: 15:35 Eye Response: spontaneous(4). Verbal Response: oriented(5). Motor Response: obeys cp commands(6). Total: 15. NIH Stroke Scale Scores: 14:56 NIHSS Score: 0 ll1 15:35 NIHSS Score: 0 cp ED Course: 14:20 Patient arrived in ED. ll1 14:23 Mookie Angela PA is PHCP. cp 14:23 Vernon Hawley MD is Attending Physician. cp 14:23 Triage completed. ll1 14:24 Arm band placed on Patient placed in an exam room, on a stretcher. ll1 14:24 Maintain EMS IV. Dressing intact. Good blood return noted. Site clean \T\ dry. Gauge \T\ ll 1 site: 20 R FA. 14:25 Nicci Reddy, RN is Primary Nurse. ll1 14:25 Patient has correct armband on for positive identification. Bed in low position. Call ll1 light in reach. Side rails up X2. Client placed on continuous cardiac and pulse oximetry monitoring. NIBP monitoring applied. monitor technician on. 14:56 No provider procedures requiring assistance completed. ll1 15:43 Stephen Herrera MD is Hospitalizing Provider. cp 19:34 Primary Nurse role handed off by Nicci Reddy RN 20:28 Milly Chan RN is Primary Nurse. ke1 20:36 Patient admitted, IV remains in place. ke1 Administered Medications: No medications were administered Medication: 14:25 VIS not applicable for this client. ll1 Point of Care Testing: Blood Glucose: 14:57 Blood Glucose: 145 mg/dL; ll1 Ranges: Outcome: 15:44 Decision to Hospitalize by Provider. cp 20:36 Admitted to Med/surg accompanied by tech. [facility] 20:36 Condition: good 20:36 Instructed on the need for admit. 20:44 Patient left the ED. ke1 NIH Stroke Scale - NIH Stroke Score Date: 06/29/2022 Time: 14:56 Total Score = 0 1a. Level of Consciousness (LOC) - 0(Alert) 1b. Level of Consciousness (LOC) (Month \T\ Age) - 0(Both) 1c. LOC Commands (Open \T\ Closes Eyes/Gasket Notcher) - 0(Both) 2. Best Gaze (Lateral Gaze Paresis) - 0(Normal) 3. Visual Field Loss - 0(No visual loss) 4. Facial Palsy - 0(Normal) 5a. Left Arm: Motor (10-second hold) - 0(No drift) 5b. Right Arm: Motor (10-second hold) - 0(No drift) 6a. Left Leg: Motor (5-second hold - always test supine) - 0(No drift) 6b. Right Leg: Motor (5-second hold - always test supine) - 0(No drift) 7. Limb Ataxia (finger/nose \T\ heel/rich - test with eyes open) - 0(Absent) 8. Sensory Loss (pinprick arms/legs/face) - 0(Normal) 9. Best Language: Aphasia (description/naming/reading) - 0(No aphasia) 10. Dysarthria (speech clarity - read or repeat words) - 0(Normal) 11. Extinction and Inattention (visual/tactile/auditory/spatial/personal) - 0(No abnormality) Initials: ll1 NIH Stroke Scale - NIH Stroke Score Date: 06/29/2022 Time: 15:35 Total Score = 0 1a. Level of Consciousness (LOC) - 0(Alert) 1b. Level of Consciousness (LOC) (Month \T\ Age) - 0(Both) 1c. LOC Commands (Open \T\ Closes Eyes/Gasket Notcher) - 0(Both) 2. Best Gaze (Lateral Gaze Paresis) - 0(Normal) 3. Visual Field Loss - 0(No visual loss) 4. Facial Palsy - 0(Normal) 5a. Left Arm: Motor (10-second hold) - 0(No drift) 5b. Right Arm: Motor (10-second hold) - 0(No drift) 6a. Left Leg: Motor (5-second hold - always test supine) - 0(No drift) 6b. Right Leg: Motor (5-second hold - always test supine) - 0(No drift) 7. Limb Ataxia (finger/nose \T\ heel/rich - test with eyes open) - 0(Absent) 8. Sensory Loss (pinprick arms/legs/face) - 0(Normal) 9. Best Language: Aphasia (description/naming/reading) - 0(No aphasia) 10. Dysarthria (speech clarity - read or repeat words) - 0(Normal) 11. 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 + ETOH use last night and a couple today. Has not eaten yet today. No known fever EMS states: BP 91/56. HR NS. IV 20 G R FA 400 ml NS bolus given, BP 104/42 now, BS 145 ll1 15:07 14:55 BP 123 / 68; Pulse 71bpm; ll1 ll1
--- NOTE | 2022-06-29 15:46 | EDPHYS ---
Physician Documentation [facility] Name: John Myers Age: 67 yrs Sex: Male : 1955 Arrival Date: 06/29/2022 Time: 14:20 Bed 20 Private MD: ED Physician Vernon Hawley HPI: 06/29 14:30 This 67 yrs old Black Male presents to ER via EMS with complaints of Weakness, cp Dizziness. 14:30 The patient has experienced syncope, lost consciousness. Onset: The symptoms/episode cp began/occurred just prior to arrival. 14:30 Duration: This was a single episode, that lasted an unknown period of time. Context: cp the episode(s) was witnessed, by family, occurred at home, while sitting outside, Just prior to the episode the patient experienced dizziness, lightheadedness. Associated injury: The patient did not suffer any apparent associated injury. Associated signs and symptoms: Pertinent positives: dizziness. Current symptoms: Currently, the patient is not experiencing any symptoms. The patient has not experienced similar symptoms in the past. Patient reports while sitting outside this afternoon, became lightheaded and "slid" out of chair onto ground. Reports being unconscious briefly. Patient admits to drinking alcohol last night. Historical: - Allergies: 14:23 No Known Allergies; ll1 - PMHx: 14:23 Hypertensive disorder; kidney issues; ll1 - PSHx: 14:23 kidney transplant; old dialysis access LUE; ll1 - Immunization history:: Client reports receiving the 2nd dose of the Covid vaccine. - Social history:: Smoking status: Patient denies any tobacco usage or history of. ROS: 14:33 Constitutional: Negative for body aches, chills, fever, poor PO intake. cp 14:33 Cardiovascular: Negative for chest pain, edema, palpitations. cp 14:33 Respiratory: Negative for cough, shortness of breath, wheezing. 14:33 Abdomen/GI: Negative for abdominal pain, nausea, vomiting, and diarrhea, vomiting, diarrhea, constipation, black/tarry stool, rectal bleeding. 14:33 : Negative for urinary symptoms. 14:33 Neuro: Positive for dizziness, syncope, Negative for altered mental status, headache, numbness, weakness. 14:33 Eyes: Negative for injury, pain, redness, and discharge. cp 14:33 ENT: Negative for drainage from ear(s), ear pain, sore throat, difficulty swallowing, difficulty handling secretions. 14:33 Neck: Negative for pain with movement, pain at rest, stiffness. cp 14:33 Back: Negative for pain at rest, pain with movement. 14:33 All other systems are negative. Exam: 14:30 ECG was reviewed by the Attending Physician. cp 14:35 Constitutional: The patient appears in no acute distress, alert, awake, comfortable, cp non-diaphoretic, non-toxic, well developed, well nourished. 14:35 Head/Face: Normocephalic, atraumatic. cp 14:35 Eyes: Periorbital structures: appear normal, Pupils: equal, round, and reactive to light and accomodation, Extraocular movements: intact throughout, Conjunctiva: normal, no exudate, no injection, Sclera: no appreciated abnormality, Lids and lashes: appear normal, bilaterally. 14:35 ENT: External ear(s): are unremarkable, Ear canal(s): are normal, clear, TM's: dullness, bilaterally, Nose: is normal, Mouth: is normal, Posterior pharynx: Airway: no evidence of obstruction, patent. 14:35 Neck: ROM/movement: is normal, is supple, without pain, no range of motions limitations. 14:35 Chest/axilla: Inspection: normal, Palpation: is normal, no crepitus, no tenderness. 14:35 Cardiovascular: Rate: normal, Rhythm: regular, Edema: is not appreciated, JVD: is not appreciated. 14:35 Respiratory: the patient does not display signs of respiratory distress, Respirations: normal, no use of accessory muscles, no retractions, labored breathing, is not present, Breath sounds: are clear throughout, no decreased breath sounds, no stridor, no wheezing. 14:35 Abdomen/GI: Inspection: abdomen appears normal, Palpation: abdomen is soft and non-tender, in all quadrants. 14:35 Back: pain, is absent, ROM is normal. 14:35 Neuro: Orientation: to person, place \\T\\ time. Mentation: is normal, Cerebellar function: is grossly normal, Motor: moves all fours, strength is normal, Sensation: is normal. Vital Signs: 14:20 BP 114 / 69; Pulse 73; Resp 18; Temp 98.0(O); Pulse Ox 100% on R/A; Weight 90.72 kg; ll1 Height 5 ft. 9 in. (175.26 cm); Pain 0/10; 14:55 BP 123 / 68 Supine; Pulse 71; ll1 14:57 BP 126 / 63 Sitting; Pulse 69; ll1 14:59 BP 119 / 69 Standing; Pulse 73; ll1 17:00 BP 151 / 71; Pulse 56; Pulse Ox 100% on R/A; ll1 19:02 BP 158 / 78; Pulse 68; Resp 17; Pulse Ox 97% ; ll1 14:20 Body Mass Index 29.53 (90.72 kg, 175.26 cm) ll1 NIH Stroke Scale Scores: 14:56 NIHSS Score: 0 ll1 15:35 NIHSS Score: 0 cp Helena Coma Score: 15:35 Eye Response: spontaneous(4). Verbal Response: oriented(5). Motor Response: obeys cp commands(6). Total: 15. MDM: 14:23 Patient medically screened. cp 15:45 Data reviewed: vital signs, nurses notes, lab test result(s), EKG, radiologic studies, cp CT scan, plain films, I have discussed the patient's presentation/case with the attending Emergency Department Physician; and as a result, I will admit patient. 15:45 Management of patient was discussed with the following: Hospitalist: DR Herrera who will cp admit after discussing results of today's testing. Independent interpretation of the following test(s) in the Emergency Department EKG: See my EKG interpretation above. Test considered but Not performed: MRI: brain. Care significantly affected by the following chronic conditions: Hypertension. Counseling: I had a detailed discussion with the patient and/or guardian regarding: the historical points, exam findings, and any diagnostic results supporting the discharge/admit diagnosis, lab results, radiology results, the need for further work-up and treatment in the hospital. 06/29 14:25 Order name: EKG; Complete Time: 14:26 ll1 06/29 14:25 Order name: EKG - Nurse/Tech; Complete Time: 14:25 ll1 06/29 14:31 Order name: Orthostatics; Complete Time: 14:55 cp 06/29 14:31 Order name: Basic Metabolic Panel cp 06/29 14:31 Order name: CBC with Diff cp 06/29 14:31 Order name: LFT's cp 06/29 14:31 Order name: Magnesium cp 06/29 14:31 Order name: NT PRO-BNP cp 06/29 14:31 Order name: PT-INR cp 06/29 14:31 Order name: Troponin HS cp 06/29 14:31 Order name: XRAY Chest (1 view) cp 06/29 14:31 Order name: Cardiac monitoring; Complete Time: 14:33 cp 06/29 14:31 Order name: IV Saline Lock; Complete Time: 14:33 cp 06/29 14:31 Order name: Labs collected and sent; Complete Time: 14:33 cp 06/29 14:31 Order name: O2 Per Protocol; Complete Time: 14:33 cp 06/29 14:31 Order name: O2 Sat Monitoring; Complete Time: 14:33 cp 06/29 14:31 Order name: CT Head Brain wo Cont cp 06/29 14:31 Order name: Urine Dipstick-Ancillary (obtain specimen); Complete Time: 18:30 cp 06/29 14:31 Order name: Urine Microscopic Only cp 06/29 14:46 Order name: CBC with Automated Diff; Complete Time: 15:34 EDMS 06/29 15:34 Interpretation: Normal except: RBC 3.74; HGB 11.6; HCT 34.3; PLT 139; ALAINA% 76.2; LYM% cp 9.8; LYMA 0.5. 06/29 14:48 Order name: Protime (+INR); Complete Time: 15:34 EDMS 06/29 15:03 Order name: CT; Complete Time: 15:34 EDMS 06/29 15:06 Order name: Basic Metabolic Panel; Complete Time: 15:34 EDMS 06/29 15:34 Interpretation: Normal except: CL 112; GLUC 122; BUN 21; CRE 1.99; GFR 36. cp 06/29 15:06 Order name: Liver (Hepatic) Function; Complete Time: 15:34 EDMS 06/29 15:06 Order name: Troponin High Sensitivity; Complete Time: 15:34 EDMS 06/29 15:06 Order name: NT PRO-BNP; Complete Time: 15:34 EDMS 06/29 15:06 Order name: Magnesium; Complete Time: 15:34 EDMS 06/29 15:35 Order name: ETOH Level cp 06/29 16:11 Order name: Alcohol Serum/Plasma; Complete Time: 16:20 EDSD 06/29 16:18 Order name: SARS RAPID ll1 06/29 16:24 Order name: RAD EDSD 06/29 16:40 Order name: SARS-COV-2 Antigen Rapid EDSD 06/29 17:36 Order name: US EDSD 06/29 18:07 Order name: Urine Dipstick-Ancillary EDSD 06/29 18:15 Order name: Urine Microscopic Only EDSD 06/29 18:35 Order name: D-Dimer EDSD 06/29 18:53 Order name: Thyroid Stimulating Hormone EDSD 06/29 20:26 Order name: EDSD EC:30 Rate is 66 beats/min. Rhythm is regular. KS interval is normal. QRS interval is cp prolonged at 114 msec. QT interval is normal. T waves are Inverted in leads II, III, aVF, V5, V6. Interpreted by me. Reviewed by me. Administered Medications: No medications were administered Point of Care Testing: Blood Glucose: 14:57 Blood Glucose: 145 mg/dL; ll1 Ranges: Critical Glucose Levels:Adult <50 mg/dl or >400 mg/dl <40 mg/dl or >180 mg/dl Disposition Summary: 06/29/22 15:44 Hospitalization Ordered Hospitalization Status: Observation cp Provider: Stephen Herrera cp Location: Telemetry/MedSurg (observation) cp Condition: Stable cp Problem: new cp Symptoms: have improved cp Bed/Room Type: Standard Room Assignment: 414(06/29/22 18:52) eb Diagnosis - Syncope cp - Unspecified injury of unspecified kidney, initial encounter cp - Cerebral infarction, unspecified cp Forms: - Medication Reconciliation Form cp - SBAR form cp NIH Stroke Scale - NIH Stroke Score Date: 06/29/2022 Time: 14:56 Total Score = 0 1a. Level of Consciousness (LOC) - 0(Alert) 1b. Level of Consciousness (LOC) (Month \\T\\ Age) - 0(Both) 1c. LOC Commands (Open \\T\\ Closes Eyes/Researcher) - 0(Both) 2. Best Gaze (Lateral Gaze Paresis) - 0(Normal) 3. Visual Field Loss - 0(No visual loss) 4. Facial Palsy - 0(Normal) 5a. Left Arm: Motor (10-second hold) - 0(No drift) 5b. Right Arm: Motor (10-second hold) - 0(No drift) 6a. Left Leg: Motor (5-second hold - always test supine) - 0(No drift) 6b. Right Leg: Motor (5-second hold - always test supine) - 0(No drift) 7. Limb Ataxia (finger/nose \\T\\ heel/rich - test with eyes open) - 0(Absent) 8. Sensory Loss (pinprick arms/legs/face) - 0(Normal) 9. Best Language: Aphasia (description/naming/reading) - 0(No aphasia) 10. Dysarthria (speech clarity - read or repeat words) - 0(Normal) 11. Extinction and Inattention (visual/tactile/auditory/spatial/personal) - 0(No abnormality) Initials: ll1 NIH Stroke Scale - NIH Stroke Score Date: 06/29/2022 Time: 15:35 Total Score = 0 1a. Level of Consciousness (LOC) - 0(Alert) 1b. Level of Consciousness (LOC) (Month \\T\\ Age) - 0(Both) 1c. LOC Commands (Open \\T\\ Closes Eyes/Researcher) - 0(Both) 2. Best Gaze (Lateral Gaze Paresis) - 0(Normal) 3. Visual Field Loss - 0(No visual loss) 4. Facial Palsy - 0(Normal) 5a. Left Arm: Motor (10-second hold) - 0(No drift) 5b. Right Arm: Motor (10-second hold) - 0(No drift) 6a. Left Leg: Motor (5-second hold - always test supine) - 0(No drift) 6b. Right Leg: Motor (5-second hold - always test supine) - 0(No drift) 7. Limb Ataxia (finger/nose \\T\\ heel/rich - test with eyes open) - 0(Absent) 8. Sensory Loss (pinprick arms/legs/face) - 0(Normal) 9. Best Language: Aphasia (description/naming/reading) - 0(No aphasia) 10. Dysarthria (speech clarity - read or repeat words) - 0(Normal) 11. Extinction and Inattention (visual/tactile/auditory/spatial/personal) - 0(No abnormality) Initials: cp Signatures: Dispatcher [employer] EDMS Page, Mookie, PA PA cp Autumn Wolfe Lynsay RN RN ll1 Vernon Hawley MD MD sp3 Corrections: (The following items were deleted from the chart) 14:48 14:35 This 67 yrs old Black Male presents to ER via EMS with complaints of cp Weakness, Dizziness. cp 18:52 15:44 cp eb 03 20:15 03/04 14:30 Patient reports while sitting outside this afternoon, became cp lightheaded and "slid" out of chair onto ground. Reports being unconscious briefly. cp
--- NOTE | 2022-06-29 16:19 | P.HP ---
Certification for Inpatient Patient admitted to: Inpatient With expected LOS: >2 Midnights Patient will require the following post-hospital care: None Practitioner: I am a practitioner with admitting privileges, knowledge of patient current condition, hospital course, and medical plan of care. Services: Services provided to patient in accordance with Admission requirements found in Title 42 Section 412.3 of the Code of Federal Regulations Patient History Date of Service: 06/29/22 Reason for admission: Syncope History of Present Illness: Mr. John Myers is a pleasant 67 year old male who has a past medical history of coronary artery disease s/p PCI, prior cerebrovascular accident (~2018), hypertensive nephropathy s/p kidney transplant (2004), benign prostatic hyperplasia, hyperlipidemia, and prediabetes who presents to the [facility] Emergency Department for syncope. He reports that, earlier this afternoon around 13:00, he was sitting on the porch with some family members. He states that he began to experience dizziness, chest pain, and nausea. Shortly after, he had episode of syncope. He states that his family members mention that he slipped out of the chair and did not hit his head. They reported that he was unconscious for several seconds and it does not appear that he had a post-ictal period. There is no reported tongue biting or urinary/bowel incontience. He states that he consumes alcohol on a social basis and he was drank one alcoholic beverage around the time of the episode. EMS was called and his blood pressure in the field was reportedly 91/56, which responded well to 400 mL fluid of IV fluids. On review of systems, he denies any fevers, chills, headaches, weakness, palpitations, shortness of breath, wheezing, cough, abdominal pain, vomiting, diarrhea, constipation, hematochezia, melena, dysuria, hematuria, myalgia, or any other symptoms. He presented to the Emergency Department for further evaluation. Upon presentation, his vital signs were stable. His laboratory studies were notable for a creatinine of 1.99 (reported baseline ~1.5). His EKG was without STEMI criteria. His chest x-ray revealed, "No acute pulmonary process. Stable moderate cardiomegaly." His CT head revealed, "6 millimeter low-density area within the luis. This may represent infarct. The age is indeterminate and should be correlated clinically. Evaluation with MRI may be helpful for further evaluation." He was admitted to the General Internal Medicine service for further evaluation. Home medications list reviewed: Yes Home Medications: Aspirin [Aspirin EC 325 MG] 325 mg PO DAILY 06/29/22 Ezetimibe [Zetia] 10 mg PO DAILY 06/29/22 Fluticasone Propionate [Flovent Hfa] 12 gm IH BID 06/29/22 Labetalol HCl [Trandate] 200 mg PO BID 06/29/22 Minoxidil 5 mg PO BID 06/29/22 Pravastatin [Pravachol] 40 mg PO BEDTIME 06/29/22 Tacrolimus 4 mg PO DAILY AT SUPPER 06/29/22 Tacrolimus 5 mg PO DAILY WITH BREAKFAST 06/29/22 Tamsulosin [Flomax*] 0.4 mg PO DAILY 06/29/22 allopurinoL [Allopurinol] 100 mg PO DAILY 06/29/22 lisinopriL [Lisinopril] 5 mg PO DAILY 06/29/22 mycophenolate mofetiL [Mycophenolate Mofetil] 250 mg PO BID 06/29/22 predniSONE [Deltasone] 5 mg PO DAILY 06/29/22 - Past Medical/Surgical History Diabetic: No -: CVA (~2018) -: CAD -: HTN -: HLD -: Prediabetes -: BPH -: Gout -: CKD3 of transplant -: Kidney Transplant (2004) -: Cardiac stent - Family History Family History: Reviewed- Non-Contributory - Social History Smoking Status: Former smoker Alcohol use: Yes CD- Drugs: No Review of Systems General: Unremarkable Eyes: Unremarkable ENT: Unremarkable Respiratory: Unremarkable Cardiovascular: Chest Pain Gastrointestinal: Nausea Genitourinary: Unremarkable Musculoskeletal: Unremarkable Integumentary: Unremarkable Neurological: Other (syncope, dizziness), As per HPI Lymphatics: Unremarkable Physical Examination - Vital Signs Temperature: 98.0 F Blood Pressure: 114/69 Pulse: 73 Respirations: 18 Pulse Ox (%): 100 - Physical Exam General: Alert, In no apparent distress, Oriented x3 HEENT: Atraumatic, PERRLA, Mucous membr. moist/pink, EOMI, Sclerae nonicteric Neck: JVD not distended Respiratory: Clear to auscultation bilaterally, Normal air movement Cardiovascular: No edema, Regular rate/rhythm, Normal S1 S2, No gallops, No rubs, No murmurs Capillary refill: <2 Seconds Gastrointestinal: Normal bowel sounds, Soft and benign, Non-distended, No tenderness, No rebound, No guarding Musculoskeletal: No clubbing Integumentary: No rashes Neurological: Normal speech, Normal strength at 5/5 x4 extr, Normal tone, Sensation intact, Cranial nerves 3-12 intact, Normal affect - Studies Laboratory Data (last 24 hrs) 06/29/22 14:35: PT 11.4, INR 1.04 06/29/22 14:35: WBC 4.60, Hgb 11.6 L, Hct 34.3 L, Plt Count 139 L 06/29/22 14:35: Sodium 141, Potassium 4.0, BUN 21 H, Creatinine 1.99 H, Glucose 122 H, Magnesium 1.7, Total Bilirubin 0.3, AST 26, ALT 21, Alkaline Phosphatase 61 Assessment and Plan - Plan NIH Stroke Scale 1a. Level of consciousness: 0 - Alert; keenly responsive 1b. LOC questions: 0 - Both questions right 1c. LOC commands: 0 - Performs both tasks 2. Best Gaze: 0 - Normal 3. Visual: 0 - No visual loss 4. Facial Palsy: 0 - Normal symmetry 5a. Motor left arm: 0 - No drift for 10 seconds 5b. Motor right arm: 0 - No drift for 10 seconds 6a. Motor left le - No drift for 5 seconds 6b. Motor right le - No drift for 5 seconds 7. Limb ataxia: 0 - No ataxia 8. Sensory: 0 - Normal; no sensory loss 9. Best Language: 0 - Normal; no aphasia 10. Dysarthria: 0 - Normal 11. Extinction and Inattention: 0 - No abnormality 12. 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 Acosta - recommendations appreciated - He recommended continuing his home aspirin, pravastatin and starting clopidogrel + folic acid - Recommended against tenecteplase given no deficits - No neurologic deficits on my exam - NIHSS = 0 - Allow permissive hypertension for tonight - q4hr neurochecks - Ordered MR brain + MRA head - deferred MRA neck to carotid Doppler to decrease contrast load on transplanted kidney (reviewed with Dr. Acosta, who agreed) - Ordered TTE + carotid Doppler - PT/OT evaluation requested - Ordered risk profile: Hgb A1c, lipid panel, TSH # Hypotension with Syncope Differential diagnoses include, but are not limited to, vasovagal syncope, orthostatic hypotension, cardiac etiology (i.e. arrhythmia, valvulopathy), and neurogenic etiologies (i.e. cerebrovascular accident). - Orthostatic vital signs: - Supine: HR 71 bpm, BP 123/68 - Sitting: HR 69 bpm, BP 126/63 - Standing: HR 73 bpm, BP 119/69 Continue telemetry - EKG = without STEMI criteria - Serial troponin: first was 47.5 - Transthoracic echocardiogram requested - Noncontrast CT head = "6 millimeter low-density area within the luis. This may represent infarct. The age is indeterminate and should be correlated clinically." # KDIGO Stage I Acute Kidney Injury on Chronic Kidney Disease Stage III of a Transplanted Kidney # Hypertensive Nephropathy s/p Kidney Transplant (2004) - Consulted Nephrology and spoke with Dr. Marc - recommendations appreciated - Creatinine = 1.99 (baseline creatinine reported ~1.5-1.6) - Urinalysis = pending - Renal ultrasound = pending - Continue home tacrolimus, mycophenolate, prednisone - Monitor creatinine and urine output - Renally dose medications # Chest Pain with Coronary Artery Disease s/p PCI # Hypertension # Hyperlipidemia # Prediabetes - Consulted Cardiology - recommendations appreciated - EKG without STEMI criteria - Serial troponin: first was 47.5 - Chest x-ray = "no acute pulmonary process. Stable moderate cardiomegaly." - Transthoracic echocardiogram pending - Ordered d-dimer - Continue home aspirin, pravastatin - Started clopidogrel per Neurology recommendations - Hold home labetalol, minoxidil, lisinopril for permissive hypertension # Benign Prostatic Hyperplasia - Hold home tamsulosin for permissive hypertension # Gout - Continue home allopurinol Stephen Herrera M.D. Discharge Plan: Home Plan to discharge in: Greater than 2 days - Advance Directives Does patient have a Living Will: No Does patient have a Durable POA for Healthcare: No - Code Status/Comfort Care Code Status Assessed: Yes Code Status: Full Code
--- NOTE | 2022-06-29 16:24 | RAD REPORT ---
EXAM DESCRIPTION: Jaime Single View06/29/2022 3:54 pm CLINICAL HISTORY: syncope, dizziness, weakness COMPARISON: 02/13/2007 TECHNIQUE: Portable AP view of the chest. FINDINGS: The lungs are clear.Mild left basilar atelectasis No pneumothorax or effusion. Moderate ca rdiomegaly with mild central vascular prominence, stable. IMPRESSION: No acute pulmonary process. Stable moderate cardiomegaly.
[2022-06-29 16:40] LABS: SARS-CoV-2 Antigen Rapid Res Negative (Negative)
--- NOTE | 2022-06-29 17:08 | P.CNS ---
Date of Consult: 06/29/22 Reason for Consult: KATLYN/ CKD Requesting Physician: Stephen Herrera Chief Complaint: Syncope History of Present Illness: 67 yo BM with CKD sp renal tx and BPH presented to the ER following a syncopal episode earlier in the day. Denies NSAIDs. Reports a DD kidney transplant through [facility] 18 years ago with a baseline creatinine 1.5 to 1.6. He reports BPH with LUTS including nocturia 2-3. He reports poor oral intake with associated dark, oliguria over the past several days. He has a LUE thrill. 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 Allergies No Known Allergies Allergy (Unverified 06/29/22 19:21) Home medications list reviewed: Yes Home Medications: Aspirin [Aspirin EC 325 MG] 325 mg PO DAILY 06/29/22 Ezetimibe [Zetia] 10 mg PO DAILY 06/29/22 Fluticasone Propionate [Flovent Hfa] 12 gm IH BID 06/29/22 Labetalol HCl [Trandate] 200 mg PO BID 06/29/22 Minoxidil 5 mg PO BID 06/29/22 Pravastatin [Pravachol] 40 mg PO BEDTIME 06/29/22 Tacrolimus 4 mg PO DAILY AT SUPPER 06/29/22 Tacrolimus 5 mg PO DAILY WITH BREAKFAST 06/29/22 Tamsulosin [Flomax*] 0.4 mg PO DAILY 06/29/22 allopurinoL [Allopurinol] 100 mg PO DAILY 06/29/22 lisinopriL [Lisinopril] 5 mg PO DAILY 06/29/22 mycophenolate mofetiL [Mycophenolate Mofetil] 250 mg PO BID 06/29/22 predniSONE [Deltasone] 5 mg PO DAILY 06/29/22 - Past Medical/Surgical History -: HTN -: CAD. Diastolic CHF. LVH. -: HLD -: CKD III sp Renal Transplant ([facility]). Immunosuppression. -: ANG. Pulmonary nodules. -: Nephrolithiasis of transplanted kidney -: BPH with LUTS -: Gout -: HCV -: Hx Syphilis -: Lacunar infarct 06-03-19 -: PreDM -: AVF -: Nephrectomy -: Parathyroidectomy -: CAD stent -: Cholecystectomy - Social History Smoking Status: Former smoker Alcohol use: No Review of Systems 10-point ROS is otherwise unremarkable General: Weakness, Malaise Physical Examination General: In no apparent distress, Oriented x3, Cooperative HEENT: Atraumatic Neck: Supple Respiratory: Clear to auscultation bilaterally Cardiovascular: No edema, Regular rate/rhythm Gastrointestinal: Soft and benign, Non-distended Musculoskeletal: No clubbing, No contractures Integumentary: No rashes, No cyanosis Neurological: Normal speech Laboratory Data (last 24 hrs) 06/29/22 14:35: PT 11.4, INR 1.04 06/29/22 14:35: WBC 4.60, Hgb 11.6 L, Hct 34.3 L, Plt Count 139 L 06/29/22 14:35: Sodium 141, Potassium 4.0, BUN 21 H, Creatinine 1.99 H, Glucose 122 H, Magnesium 1.7, Total Bilirubin 0.3, AST 26, ALT 21, Alkaline Phosphatase 61 Imagings Data: EXAM DESCRIPTION: CT - Head Brain Wo Cont - 06/29/2022 2:46 pm CLINICAL HISTORY: Syncope COMPARISON: None TECHNIQUE: Computed axial tomography of the head was obtained. IV contrast was not requested. All CT scans are performed using dose optimization technique as appropriate and may include automated exposure control or mA/KV adjustment according to patient size. FINDINGS: An intracranial bleed is not seen The ventricles are normal in caliber No extra-axial fluid collection is noted. 6 millimeter low-density area within the right aspect of the luis Mild to moderate low-density areas within periventricular, deep and subcortical white matter likely represent ischemic changes secondary to small vessel disease. Fluid within the sinuses/ mastoids is not seen. IMPRESSION: 6 millimeter low-density area within the luis. This may represent infarct. The age is indeterminate and should be correlated clinically. EXAM DESCRIPTION: [facility] Single View06/29/2022 3:54 pm CLINICAL HISTORY: syncope, dizziness, weakness COMPARISON: 02/13/2007 TECHNIQUE: Portable AP view of the chest. FINDINGS: The lungs are clear.Mild left basilar atelectasis No pneumothorax or e ffusion. Moderate cardiomegaly with mild central vascular prominence, stable. IMPRESSION: No acute pulmonary process. Stable moderate cardiomegaly. Echocardiogram 05-22-21 Left Ventricle The left ventricular size is normal. There is severe concentric left ventricular hypertrophy. Left ventricular systolic function is normal. Ejection Fraction = 60-65%. Diastolic dysfunction. The left ventricular wall motion is normal. Right Ventricle The right ventricular size and function are normal. Atria The left atrium is moderately dilated. The right atrium is normal. Mitral Valve There is mild mitral annular calcification. The mitral valve leaflets appear thickened, but open well. There is trace mitral regurgitation. Tricuspid Valve The tricuspid valve is not well visualized, but is grossly normal. There is trace tricuspid regurgitation. Right ventricular systolic pressure is 25-30 mmHg. Aortic Valve The aortic valve is trileaflet. The aortic valve leaflets are thickened. The mean aortic valve gradient measures 8.9 mmHg. Pulmonic Valve The pulmonic valve is normal. There is trivial pulmonic insufficiency. Great Vessels The aortic root is normal size. Mildly dilated aortic arch. 3.58 cm. Pericardium/Pleural Therer is a small pericardial effusion. There are no echocardiographic indications of cardiac tamponade. Interpretation Summary The study was technically adequate. A complete two-dimensional transthoracic echocardiogram was performed (2D, M-mode, Doppler and color flow Doppler). Compared to prior study, there is no significant change. Left ventricular systolic function is normal. Therer is a small pericardial effusion. There are no echocardiographic indications of cardiac tamponade. Diastolic dysfunction. Mildly dilated aortic arch. Right ventricular systolic pressure is 25-30 mmHg. Conclusions/Impression: Stage I KATLYN in the setting of hypotension and hypovolemia CKD IIIa with proteinuria (Baseline creatinine 1.5-1.6) Renal transplant -No NSAIDs -Start IVF 1/2NS -Restart immunosuppressive therapy HTN with CKD/ CHF comlicated by hypotension -Hold antihypertensives -Start IVF 1/2 NS ANG -Recommend CPAP Diastolic CHF LVH -Daily weight -Hold Lasix at this time PreDM A1C 6 -No sugar diet Anemia in chronic illness -Monitor H&H -Retacrit prn Hx Gout -Continue Allopurinol BPH with LUTS -Monitor for urinary retention -Flomax prn Case reviewed with Dr. Herrera Thank you kindly for the consultation
--- NOTE | 2022-06-29 17:35 | RAD REPORT ---
EXAM DESCRIPTION: - CP - 06/29/2022 5:21 pm CLINICAL HISTORY: syncope eval COMPARISON: No comparisons TECHNIQUE: Real-time sonographic grayscale, color duplex, and spectral wave Doppler evaluation of [facility] carotid systems was performed. FINDINGS: Normal high resistance waveforms are noted in both external carotid arteries. The common c arotid arteries and internal carotid arteries show normal low resistance waveforms. [id number] smooth, echogenic, calcified plaque is seen at the carotid bulbs and proximal ICAs. Peak systolic velocity less than 125 cm/ sec bilaterally. ICA/CCA peak systolic ratios less than 2.0 bilaterally. Antegrade flow seen in both vertebral arteries. IMPRESSION: [id number] bilateral carotid bulb atherosclerotic changes as above. No evidence of a hemodynamically significant stenosis.
[2022-06-29 18:07] LABS: Urine Blood Trace-intact (Negative); Urine Glucose Negative (Negative); Urine Protein 3+ (Negative); Urine pH 6.5 (5.0-7.0)
[2022-06-29 18:15] LABS: Transitional Epithelial <5 /HPF (None Seen); Urine Bacteria None Seen /HPF (<20); Urine Mucus Slight /HPF (None Seen); Urine RBC <5 /HPF (None Seen)
--- NOTE | 2022-06-29 20:25 | RAD REPORT ---
EXAM DESCRIPTION: US - Renal Ultrasound-Complete - 06/29/2022 7:18 pm CLINICAL HISTORY: AKTLYN of transplanted kidney COMPARISON: None available TECHNIQUE: Sonographic grayscale and color flow images of the kidneys and bladder were obtained. FINDINGS: Status post bilateral nephrectomies. Limited evaluation of the left renal fossa due to ove r shadowing bowel, without discrete masses. Right lower quadrant renal transplant measures 14 centimeter in long axis. Mild hydronephrosis. 8 mil limeter echogenic midpole focus with twinkle artifact, suggestive of a calculus. Other small punctate echogenic foci not exceeding 3 millimeter, along the lower pole. Lobulated anechoic 1.4 centimeter m id to lower pole cyst and other adjacent cysts along the lower pole. No focal masses or perinephric f luid. Preserved vascularity. Renal transplant vascular pedicle Doppler signals were not assessed. The urinary bladder is incompletely distended without gross abnormality seen. IMPRESSION: Mild hydronephrosis of the right lower quadrant transplanted kidney. Mid to lower pole c alculi, the largest measuring 8 millimeter, as above.
[2022-06-29 20:54] VITALS: O2SAT 97
[2022-06-29] MEDS: FLUTICASONE IH SCH (21:00)
[2022-06-29] MEDS: Mycophenolate Mofetil 250 MG Capsule PO SCH (21:00)
[2022-06-29] MEDS: NACHLORIDE 0.45% 1,000 ML IV SCH (21:29)
[2022-06-29] MEDS: FOLIC ACID 1 MG TABLET PO SCH (22:23)
[2022-06-29] MEDS: ATORVASTATIN 10 MG TAB PO SCH (22:23)
[2022-06-29] MEDS: CLOPIDOGREL 75 MG TABLET PO SCH (22:23)
[2022-06-29 23:30] VITALS: BMI 29.7
[2022-06-30 03:40] LABS: Absolute Lymphocytes (CBC) 0.9 K/uL (0.7-4.9); Hematocrit 36.7 % (39.6-49.0); Lymphocytes % 18.9 % (15.3-44.8); MCV 92.5 fL (80-100); MPV 9.9 fL (7.6-11.3); RBC Red Blood Cell Count 3.97 M/uL (4.33-5.43)
[2022-06-30 04:01] LABS: Magnesium 1.9 mg/dL (1.6-2.4); Phosphorus 2.6 mg/dL (2.5-4.9)
[2022-06-30] MEDS: NACHLORIDE 0.45% 1,000 ML IV SCH ×3 (06:18→23:52)
[2022-06-30] MEDS: EZETIMIBE 10 MG TAB PO SCH (08:58)
[2022-06-30] MEDS: predniSONE 5 MG TAB PO SCH (08:58)
[2022-06-30] MEDS: CLOPIDOGREL 75 MG TABLET PO SCH (08:58)
[2022-06-30] MEDS: allopurinoL 100 MG TAB PO SCH (08:59)
[2022-06-30] MEDS: FOLIC ACID 1 MG TABLET PO SCH (08:59)
[2022-06-30] MEDS: ASPIRIN 81 MG CHEWABLE TABLET PO SCH (08:59)
[2022-06-30] MEDS: Mycophenolate Mofetil 250 MG Capsule PO SCH ×2 (09:00→21:00)
[2022-06-30] MEDS: FLUTICASONE IH SCH ×2 (09:00→21:00)
--- NOTE | 2022-06-30 11:00 | P.PN ---
Subjective Date of Service: 06/30/22 Chief Complaint: Syncope No acute events overnight. He has had no recurrent episodes of dizziness/syncope. Renal function improving. He reports good urine output. MRI brain pending. He denies any chest pain, palpitations, shortness of breath, or abdominal pain. Review of Systems 10-point ROS is otherwise unremarkable Neurological: Other (syncope) Physical Examination - Vital Signs Temperature: 97.1 F Blood Pressure: 159/82 Pulse: 84 Respirations: 16 Pulse Ox (%): 97 - Studies Laboratory Data (last 24 hrs) 06/29/22 14:35: PT 11.4, INR 1.04 06/29/22 14:35: WBC 4.60, Hgb 11.6 L, Hct 34.3 L, Plt Count 139 L 06/29/22 14:35: Sodium 141, Potassium 4.0, BUN 21 H, Creatinine 1.99 H, Glucose 122 H, Magnesium 1.7, Total Bilirubin 0.3, AST 26, ALT 21, Alkaline Phosphatase 61 Assessment And Plan - Plan - Physical Exam General: Alert, In no apparent distress, Oriented x3 HEENT: Atraumatic, PERRLA, Mucous membr. moist/pink, EOMI, Sclerae nonicteric Neck: JVD not distended Respiratory: Clear to auscultation bilaterally, Normal air movement Cardiovascular: No edema, Regular rate/rhythm, No murmurs Capillary refill: <2 Seconds Gastrointestinal: Normal bowel sounds, Soft, Non-distended, No tenderness Musculoskeletal: No clubbing Integumentary: No rashes Neurological: Normal speech, Normal strength at 5/5 x4 extr, Sensation intact, Cranial nerves 3-12 intact, Normal affect NIH Stroke Scale 1a. Level of consciousness: 0 - Alert; keenly responsive 1b. LOC questions: 0 - Both questions right 1c. LOC commands: 0 - Performs both tasks 2. Best Gaze: 0 - Normal 3. Visual: 0 - No visual loss 4. Facial Palsy: 0 - Normal symmetry 5a. Motor left arm: 0 - No drift for 10 seconds 5b. Motor right arm: 0 - No drift for 10 seconds 6a. Motor left le - No drift for 5 seconds 6b. Motor right le - No drift for 5 seconds 7. Limb ataxia: 0 - No ataxia 8. Sensory: 0 - Normal; no sensory loss 9. Best Language: 0 - Normal; no aphasia 10. Dysarthria: 0 - Normal 11. Extinction and Inattention: 0 - No abnormality 12. 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 Acosta - recommendations appreciated - He recommended continuing his home aspirin, pravastatin and starting clopidogrel + folic acid - Recommended against tenecteplase given no deficits - No neurologic deficits on my exam - NIHSS = 0 - Allow permissive hypertension for tonight - q4hr neurochecks - Ordered MR brain + MRA head - deferred MRA neck to carotid Doppler to decrease contrast load on transplanted kidney (reviewed with Dr. Acosta, who agreed) - Ordered TTE + carotid Doppler - PT/OT evaluation requested - Ordered risk profile: - Hgb A1c = pending - Lipid Panel = TC 167, LDL 81, HDL 66, TG 100 - TSH = 1.11 # Hypotension with Syncope Differential diagnoses include, but are not limited to, vasovagal syncope, orthostatic hypotension, cardiac etiology (i.e. arrhythmia, valvulopathy), and neurogenic etiologies (i.e. cerebrovascular accident). - Orthostatic vital signs: - Supine: HR 71 bpm, BP 123/68 - Sitting: HR 69 bpm, BP 126/63 - Standing: HR 73 bpm, BP 119/69 Continue telemetry - EKG = without STEMI criteria - Serial troponin: 47.5 -> 49.3 -> 55.8 - Transthoracic echocardiogram requested - Noncontrast CT head = "6 millimeter low-density area within the luis. This may represent infarct. The age is indeterminate and should be correlated clinically." # KDIGO Stage I Acute Kidney Injury on Chronic Kidney Disease Stage III of a Transplanted Kidney # Hypertensive Nephropathy s/p Kidney Transplant (2004) # Mild Hydronephrosis of Transplanted Kidney secondary to Renal Calculus (8 mm) - Consulted Nephrology and spoke with Dr. Marc - recommendations appreciated - Creatinine = 1.99 -> 1.67 (baseline creatinine reported ~1.5-1.6) - Urinalysis = 3+ protein - Renal ultrasound = "mild hydronephrosis of the right lower quadrant transplanted kidney. Mid to lower pole calculi, the largest measuring 8 millimeter." - Reviewed with Dr. Marc, who will contact his Transplant Nephrology team at [facility] for further guidance - appreciate recommendations - Continue home tacrolimus, mycophenolate, prednisone - Monitor creatinine and urine output - Renally dose medications # Chest Pain with Coronary Artery Disease s/p PCI # Hypertension # Hyperlipidemia # Prediabetes - Consulted Cardiology - recommendations appreciated - EKG without STEMI criteria - Serial troponin: 47.5 -> 49.3 -> 55.8 - Chest x-ray = "no acute pulmonary process. Stable moderate cardiomegaly." - Transthoracic echocardiogram pending - D-dimer = 688 - Ordered V/Q scan - Continue home aspirin, pravastatin - Started clopidogrel per Neurology recommendations - Hold home labetalol, minoxidil, lisinopril for permissive hypertension # Benign Prostatic Hyperplasia - Hold home tamsulosin for permissive hypertension # Gout - Continue home allopurinol # Hepatitis C s/p Treatment - He states that he completed a course of sofosbuvir-velpatasvir - Follow-up with PCP for further evaluation Stephen Herrera M.D.
[2022-06-30] MEDS: ATORVASTATIN 10 MG TAB PO SCH (20:44)
[2022-06-30] MEDS: HEPARIN 5000 UNIT/ML 1 ML VIAL SQ SCH (20:44)
--- NOTE | 2022-06-30 21:44 | P.PN ---
Date of Service: 06/30/22 Vital Signs Temp Pulse Resp BP Pulse Ox 97.4 F 70 18 164/86 H 97 06/30/22 20:00 06/30/22 20:00 06/30/22 20:00 06/30/22 20:00 06/30/22 20:00 Medications Allopurinol (Allopurinol 100 Mg Tab) 100 mg PO DAILY [facility] Last Admin: 06/30/22 08:59 Dose: 100 mg Aspirin (Aspirin 81 Mg Chewable Tablet) 81 mg PO DAILY [facility] Last Admin: 06/30/22 08:59 Dose: 81 mg Atorvastatin Calcium (Atorvastatin 10 Mg Tab) 10 mg PO BEDTIME [facility] Last Admin: 06/30/22 20:44 Dose: 10 mg Clopidogrel Bisulfate (Clopidogrel 75 Mg Tablet) 75 mg PO DAILY [facility] Last Admin: 06/30/22 08:58 Dose: 75 mg Ezetimibe (Ezetimibe 10 Mg Tab) 10 mg PO DAILY [facility] Last Admin: 06/30/22 08:58 Dose: 10 mg Folic Acid (Folic Acid 1 Mg Tablet) 1 mg PO DAILY [facility] Last Admin: 06/30/22 08:59 Dose: 1 mg Heparin Sodium (Porcine) (Heparin 5000 Unit/Ml 1 Ml Vial) 5,000 unit SQ Q12HR [facility] Last Admin: 06/30/22 20:44 Dose: 5,000 unit Home Med (Mycophenolate Mofetil [Mycophenolate Mofetil]) 250 mg PO BID [facility] Last Admin: 06/30/22 09:00 Dose: Not Given Home Med (Tacrolimus [Tacrolimus]) 4 mg PO DAILY AT SUPPER [facility] Last Admin: 06/30/22 15:22 Dose: Not Given Home Med (Tacrolimus [Tacrolimus]) 5 mg PO DAILY WITH BREAKFAST [facility] Last Admin: 06/30/22 08:00 Dose: Not Given Home Med (Fluticasone Propionate [Flovent Hfa]) 0 gm IH BID [facility] Last Admin: 06/30/22 09:00 Dose: Not Given Sodium Chloride (Sodium Chloride 0.45%) 1,000 mls @ 100 mls/hr IV .Q10H [facility] Last Admin: 06/30/22 13:12 Dose: 1,000 mls Prednisone (Prednisone 5 Mg Tab) 5 mg PO DAILY [facility] Last Admin: 06/30/22 08:58 Dose: 5 mg Sodium Chloride (Flush Normal Saline 10 Ml) 10 ml IV BID [facility] Last Admin: 06/30/22 20:48 Dose: 10 ml Assessment/ Plan: Nephrology No dyspnea No chest pain Good urine output No acute events overnight Vitals, medications, blood work and imaging reviewed in the chart. General: In no apparent distress, Oriented x3, Cooperative HEENT: Atraumatic Neck: Supple Respiratory: Clear to auscultation bilaterally Cardiovascular: No edema, Regular rate/rhythm Gastrointestinal: Soft and benign, Non-distended Musculoskeletal: No clubbing, No contractures Integumentary: No rashes, No cyanosis Neurological: Normal speech Laboratory Data (last 24 hrs) 06/29/22 14:35: PT 11.4, INR 1.04 06/29/22 14:35: WBC 4.60, Hgb 11.6 L, Hct 34.3 L, Plt Count 139 L 06/29/22 14:35: Sodium 141, Potassium 4.0, BUN 21 H, Creatinine 1.99 H, Glucose 122 H, Magnesium 1.7, Total Bilirubin 0.3, AST 26, ALT 21, Alkaline Phosphatase 61 Imagings Data: EXAM DESCRIPTION: CT - Head Brain Wo Cont - 06/29/2022 2:46 pm CLINICAL HISTORY: Syncope COMPARISON: None TECHNIQUE: Computed axial tomography of the head was obtained. IV contrast was not requested. All CT scans are performed using dose optimization technique as appropriate and may include automated exposure control or mA/KV adjustment according to patient size. FINDINGS: An intracranial bleed is not seen The ventricles are normal in caliber No extra-axial fluid collection is noted. 6 millimeter low-density area within the right aspect of the luis Mild to moderate low-density areas within periventricular, deep and subcortical white matter likely represent ischemic changes secondary to small vessel disease. Fluid within the sinuses/ mastoids is not seen. IMPRESSION: 6 millimeter low-density area within the luis. This may represent infarct. The age is indeterminate and should be correlated clinically. EXAM DESCRIPTION: [facility] Single View06/29/2022 3:54 pm CLINICAL HISTORY: syncope, dizziness, weakness COMPARISON: 02/13/2007 TECHNIQUE: Portable AP view of the chest. FINDINGS: The lungs are clear.Mild left basilar atelectasis No pneumothorax or effusion. Moderate cardiomegaly with mild central vascular prominence, stable. IMPRESSION: No acute pulmonary process. Stable moderate cardiomegaly. Echocardiogram 1-25-22 Left Ventricle The left ventricular size is normal. There is severe concentric left ventricular hypertrophy. Left ventricular systolic function is normal. Ejection Fraction = 60-65%. Diastolic dysfunction. The left ventricular wall motion is normal. Right Ventricle The right ventricular size and function are normal. Atria The left atrium is moderately dilated. The right atrium is normal. Mitral Valve There is mild mitral annular calcification. The mitral valve leaflets appear thickened, but open well. There is trace mitral regurgitation. Tricuspid Valve The tricuspid valve is not well visualized, but is grossly normal. There is trace tricuspid regurgitation. Right ventricular systolic pressure is 25-30 mmHg. Aortic Valve The aortic valve is trileaflet. The aortic valve leaflets are thickened. The mean aortic valve gradient measures 8.9 mmHg. Pulmonic Valve The pulmonic valve is normal. There is trivial pulmonic insufficiency. Great Vessels The aortic root is normal size. Mildly dilated aortic arch. 3.58 cm. Pericardium/Pleural Therer is a small pericardial effusion. There are no echocardiographic indications of cardiac tamponade. Interpretation Summary The study was technically adequate. A complete two-dimensional transthoracic echocardiogram was performed (2D, M-mode, Doppler and color flow Doppler). Compared to prior study, there is no significant change. Left ventricular systolic function is normal. Therer is a small pericardial effusion. There are no echocardiographic indications of cardiac tamponade. Diastolic dysfunction. Mildly dilated aortic arch. Right ventricular systolic pressure is 25-30 mmHg. Conclusions/Impression: Stage I KATLYN in the setting of hypotension and hypovolemia CKD IIIa with proteinuria (Baseline creatinine 1.5-1.6) Renal transplant -No NSAIDs -Continue IVF 1/2NS -Continue immunosuppressive therapy HTN with CKD/ CHF -Restart Lisinopril 5mg BID ANG -Recommend CPAP Diastolic CHF LVH -Daily weight -Hold Lasix at this time PreDM A1C 6 -No sugar diet Anemia in chronic illness -Monitor H&H -Retacrit prn Hx Gout -Continue Allopurinol BPH with LUTS -Monitor for urinary retention -Flomax prn
[2022-06-30] MEDS: lisinopriL 5 MG TAB PO SCH (22:18)
[2022-07-01 04:15] LABS: Absolute Lymphocytes (CBC) 1.1 K/uL (0.7-4.9); Hematocrit 37.9 % (39.6-49.0); Lymphocytes % 22.4 % (15.3-44.8); MCV 91.8 fL (80-100); MPV 9.1 fL (7.6-11.3); RBC Red Blood Cell Count 4.13 M/uL (4.33-5.43)
[2022-07-01 04:32] LABS: Magnesium 1.7 mg/dL (1.6-2.4); Potassium 3.7 mmol/L (3.5-5.1)
[2022-07-01] MEDS: Mycophenolate Mofetil 250 MG Capsule PO SCH (08:38)
[2022-07-01] MEDS: FLUTICASONE IH SCH (08:38)
[2022-07-01] MEDS: NACHLORIDE 0.45% 1,000 ML IV SCH (08:44)
[2022-07-01] MEDS: predniSONE 5 MG TAB PO SCH (08:44)
[2022-07-01] MEDS: lisinopriL 5 MG TAB PO SCH (08:44)
[2022-07-01] MEDS: ASPIRIN 81 MG CHEWABLE TABLET PO SCH (08:44)
[2022-07-01] MEDS: FOLIC ACID 1 MG TABLET PO SCH (08:44)
[2022-07-01] MEDS: EZETIMIBE 10 MG TAB PO SCH (08:45)
[2022-07-01] MEDS: HEPARIN 5000 UNIT/ML 1 ML VIAL SQ SCH (08:45)
[2022-07-01] MEDS: CLOPIDOGREL 75 MG TABLET PO SCH (08:45)
[2022-07-01] MEDS: allopurinoL 100 MG TAB PO SCH (08:45)
[2022-07-01] MEDS ORDERED: AMLODIPINE 10 MG TAB PO SCH (10:00)
[2022-07-01] MEDS ORDERED: minoxidiL 2.5 MG TAB PO ONE (11:05)
--- NOTE | 2022-07-01 11:50 | RAD REPORT ---
EXAM DESCRIPTION: MRI - MRA Head Wo Cont - 07/01/2022 11:24 am CLINICAL HISTORY: stroke eval COMPARISON: Brain W/Wo Cont dated 07/01/2022; Head Brain Wo Cont dated 06/29/2022 FINDINGS: 3D noncontrast [id number] MR angiography of the [place] was performed. No evidence of large vessel occlusion. No aneurysm, flow-limiting stenosis or vascular malformation i s seen. Forward flow seen in codominant vertebral arteries. The visualized dural venous sinuses appear patent. IMPRESSION: No significant flow abnormality of the [place] is identified.
[2022-07-01 12:09] VITALS: BP 184/92; TEMP 97.4
--- NOTE | 2022-07-01 12:16 | RAD REPORT ---
EXAM DESCRIPTION: MRI - Brain W/Wo Cont - 07/01/2022 11:22 am CLINICAL HISTORY: stroke eval COMPARISON: Noncontrast head CT 06/29/2022 TECHNIQUE: Multiplanar multisequence MRI of the brain performed following intravenous administration of 20 mL MultiHance. FINDINGS: No evidence of acute infarct or other diffusion signal abnormality. No evidence of acute intracranial hemorrhage or abnormal extra-axial fluid collections. Mild diffuse parenchymal volume loss. Ventricular caliber otherwise within normal for age. Midline st ructures are unremarkable. Scattered supratentorial subcortical and deep white matter, as well as few pontine T2/FLAIR hyperinte nsities, nonspecific, but suggestive of chronic small vessel ischemic changes. The right pontine focu s of near CSF signal intensity with adjacent gliosis is noted, may relate to a small remote infarct. No mass effect or midline shift. No abnormal enhancement. Major vascular flow voids are preserved. Patchy opacification throughout the mastoid air cells. Paranasal sinuses are well aerated. IMPRESSION: No acute intracranial process. Evidence of small remote right pontine infarct, and presu med sequelae of advanced chronic small vessel ischemic changes, as above.
--- NOTE | 2022-07-01 14:10 | RAD REPORT ---
EXAM DESCRIPTION: [facility] Single View07/01/2022 1:58 pm CLINICAL HISTORY: Shortness of breath COMPARISON: June 29, 2022 FINDINGS: The lungs appear clear of acute infiltrate. The heart is moderately enlarged
--- NOTE | 2022-07-01 14:11 | RAD REPORT ---
EXAM DESCRIPTION: NM - Vent Perfusion VQ Scan - 07/01/2022 1:07 pm CLINICAL HISTORY: Shortness of breath COMPARISON: July 01, 2022 x-ray TECHNIQUE: 22.5 Mci [id number] was administered by inhalation. First breath, equilibrium, and washout images of the lungs obtained 8.6 millicuries Technetium-99 MAA was administered intravenously. Anterior, posterior, lateral and ob lique views of the lungs were taken. FINDINGS: Moderate defect of radiotracer involves the left lung base which is matched on ventilation and perfusion images. This corresponds to the enlarged heart. Remainder of the lungs demonstrate relatively homogeneous radiotracer uptake on ventilation perfusion sequences No mismatched segmental or lobar perfusion defects are seen. IMPRESSION: No evidence of a pulmonary embolus
--- NOTE | 2022-07-01 16:44 | EKG ---
Test Date: 2022-06-29 Test Time: 14:23:18 Junior Web Developer: JESSENIA MEASUREMENT RESULTS: Intervals: Rate: 66 NC: 166 QRSD: 114 QT: 416 QTc: 436 [place]: P: 59 NC: 166 QRS: 96 T: -13 INTERPRETIVE STATEMENTS: Normal sinus rhythm Rightward axis Incomplete right bundle branch block T wave abnormality, consider inferolateral ischemia Abnormal ECG Compared to ECG 02/12/2007 08:54:30 Right-axis deviation now present Incomplete right bundle-branch block now present T-wave abnormality still present Possible ischemia still present Electronically Signed On 07-01-22 16:38:45 ACAD[employer]IC AFFAIRS MANAGER by Irineo Blanco
[2022-07-01] MEDS ORDERED: minoxidiL 2.5 MG TAB PO SCH (21:00)
--- NOTE | 2022-07-01 21:25 | P.PN ---
Date of Service: 07/01/22 Vital Signs Temp Pulse Resp BP Pulse Ox 97.4 F 53 14 184/92 H 100 07/01/22 12:00 07/01/22 12:00 07/01/22 12:00 07/01/22 12:00 07/01/22 12:00 Assessment/ Plan: Nephrology No dyspnea No chest pain Good urine output Feeling better No acute events overnight Vitals, medications, blood work and imaging reviewed in the chart. General: In no apparent distress, Oriented x3, Cooperative HEENT: Atraumatic Neck: Supple Respiratory: Clear to auscultation bilaterally Cardiovascular: No edema, Regular rate/rhythm Gastrointestinal: Soft and benign, Non-distended Musculoskeletal: No clubbing, No contractures Integumentary: No rashes, No cyanosis Neurological: Normal speech Laboratory Data (last 24 hrs) 06/29/22 14:35: PT 11.4, INR 1.04 06/29/22 14:35: WBC 4.60, Hgb 11.6 L, Hct 34.3 L, Plt Count 139 L 06/29/22 14:35: Sodium 141, Potassium 4.0, BUN 21 H, Creatinine 1.99 H, Glucose 122 H, Magnesium 1.7, Total Bilirubin 0.3, AST 26, ALT 21, Alkaline Phosphatase 61 Imagings Data: EXAM DESCRIPTION: CT - Head Brain Wo Cont - 06/29/2022 2:46 pm CLINICAL HISTORY: Syncope COMPARISON: None TECHNIQUE: Computed axial tomography of the head was obtained. IV contrast was not requested. All CT scans are performed using dose optimization technique as appropriate and may include automated exposure control or mA/KV adjustment according to patient size. FINDINGS: An intracranial bleed is not seen The ventricles are normal in caliber No extra-axial fluid collection is noted. 6 millimeter low-density area within the right aspect of the luis Mild to moderate low-density areas within periventricular, deep and subcortical white matter likely represent ischemic changes secondary to small vessel disease. Fluid within the sinuses/ mastoids is not seen. IMPRESSION: 6 millimeter low-density area within the luis. This may represent infarct. The age is indeterminate and should be correlated clinically. EXAM DESCRIPTION: [facility] Single View06/29/2022 3:54 pm CLINICAL HISTORY: syncope, dizziness, weakness COMPARISON: 02/13/2007 TECHNIQUE: Portable AP view of the chest. FINDINGS: The lungs are clear.Mild left basilar atelectasis No pneumothorax or effusion. Moderate cardiomegaly with mild central vascular prominence, stable. IMPRESSION: No acute pulmonary process. Stable moderate cardiomegaly. Echocardiogram 05-22-21 Left Ventricle The left ventricular size is normal. There is severe concentric left ventricular hypertrophy. Left ventricular systolic function is normal. Ejection Fraction = 60-65%. Diastolic dysfunction. The left ventricular wall motion is normal. Right Ventricle The right ventricular size and function are normal. Atria The left atrium is moderately dilated. The right atrium is normal. Mitral Valve There is mild mitral annular calcification. The mitral valve leaflets appear thickened, but open well. There is trace mitral regurgitation. Tricuspid Valve The tricuspid valve is not well visualized, but is grossly normal. There is trace tricuspid regurgitation. Right ventricular systolic pressure is 25-30 mmHg. Aortic Valve The aortic valve is trileaflet. The aortic valve leaflets are thickened. The mean aortic valve gradient measures 8.9 mmHg. Pulmonic Valve The pulmonic valve is normal. There is trivial pulmonic insufficiency. Great Vessels The aortic root is normal size. Mildly dilated aortic arch. 3.58 cm. Pericardium/Pleural Therer is a small pericardial effusion. There are no echocardiographic indicat ions of cardiac tamponade. Interpretation Summary The study was technically adequate. A complete two-dimensional transthoracic echocardiogram was performed (2D, M-mode, Doppler and color flow Doppler). Compared to prior study, there is no significant change. Left ventricular systolic function is normal. Therer is a small pericardial effusion. There are no echocardiographic indications of cardiac tamponade. Diastolic dysfunction. Mildly dilated aortic arch. Right ventricular systolic pressure is 25-30 mmHg. Conclusions/Impression: Stage I KATLYN in the setting of hypotension and hypovolemia CKD IIIa with proteinuria (Baseline creatinine 1.5-1.6) Renal transplant -No NSAIDs -DC IVF 1/2NS -Continue immunosuppressive therapy HTN with CKD/ CHF -Continue Lisinopril 5mg BID ANG -Recommend CPAP Diastolic CHF LVH -Daily weight -Hold Lasix at this time PreDM A1C 6 -No sugar diet Anemia in chronic illness -Monitor H&H -Retacrit prn Hx Gout -Continue Allopurinol BPH with LUTS -Monitor for urinary retention -Flomax prn
--- NOTE | 2022-07-01 23:59 | CON ---
Date of Consultation: 07/01/2022 Reason For Consultation: Syncope. History Of Present Illness: This is a 67-year-old male with history of coronary artery disease, CVA, hypertension, dyslipidemia, diabetes, chronic kidney disease, and had a transplanted kidney. The [place]ingo blackmon apparently was working in the yard, in the heat and then sat on the porch on the balcony with john colunga and family. It was slightly hot so he felt dizzy and he passed out. Upon arrival to the [facility] room, he appeared to be dehydrated. After IV fluid management, he is totally fine. Denies hav ing any chest pain or shortness of breath. Past Medical History: As outlined above in HPI. Medications: Refer to reconciliation sheet for detailed list. Allergies: NO KNOWN DRUG ALLERGIES. Family History: No premature coronary artery disease or cancer. Social History: He does not smoke or drink. Does not use any drugs. Review of Systems: All systems reviewed and they were negative except as mentioned in HPI. Physical Examination: Vital Signs: Reviewed. Head And Neck: Pupils are equal and reactive to light. Intact eye movements. No JVD. No cervical lymphadenopathy. Neck is supple. Thyroid is not enlarged. Lungs: Clear to auscultation bilaterally. No rhonchi, wheezing, or crackles. No accessory muscle u se. Heart: Regular rate and rhythm. No extra sounds. Abdomen: Soft, nontender. Bowel sounds positive. No organomegaly. No masses or hernia. No rigidi ty or rebound. Extremities: No edema, clubbing, or cyanosis. Intact pulses. Skin: No rash. Neurologic: Alert, awake, and oriented x3. No acute focal deficits appreciated. Investigations: Cardiac enzymes are negative. BUN 21, creatinine 1.67 and down to 1.39 after IV flu ids. Assessment/recommendation: 1.Syncope, likely due to hypotension and dehydration. This has resolved after proper hydration. 2.Acute renal failure due to dehydration and improved with IV fluids. 3.Hypertension. Blood pressure is controlled. Continue home medications. Cardiology will sign off on the case. Thank you for the consultation. SR/MODL Voice ID: [id number] Report ID: [id number]
--- NOTE | 2022-07-02 00:44 | CON ---
Reason For Consultation: Consultation called because of syncope. History Of Present Illness: Mr. Myers is a 67-year-old right-handed patient who has a history of a single kidney and a transplant in 2004 and still has a working kidney. Reason for co yeny in is syncope. The patient was on then porch over the weekend with family members and had 1 alc oholic drink when he began to feel lightheaded and apparently slipped down slightly bumping the back of his head. He reports he may have been out for seconds, perhaps a minute or 2 and tried to regain awareness, but was somewhat disoriented. Emergency Medical Service was called. The patient's blood pressure was 91/56. He did again have IV fluids in the field and by the time he came back in, he got 400 cc and began to be more awake and interactive. Prior to the episode, he did not have any chest pain or any shortness of breath. No focal findings such as face, arm, or leg numbness and weakness. At the [facility], his creatinine was elevated consistent with dehydrated at 1.99, baseline was around 1.5. His chest x-ray showed no fluid buildup on his lungs. Head CT scan did show a 6 mm area of low density within the luis suggestive of a possible acute ischemic infarct. [facility] and the study showed no acute ischemic or hemorrhagic change. There was, however, a remote right pontine infarct and there was advanced small vessel ische maddy disease. The MRA of his brain showed no significant abnormalities in the [place]. He d id have a lung V/Q scan to rule out pulmonary embolus and there was no evidence of pulmonary embolus on this study. The patient was able to be up and ambulate going to the restroom and with his physica l therapy evaluation, ambulated independently without any assistive devices and did all of his mobili ty with no restriction. Laboratory Studies: Aside from the kidney function, showed no evidence of infection. Hemoglobin 12. 4, white blood cell count 4.9, and after hydration from 1.99, creatinine improved to 1.39. His diandra sterol panel showed LDL of 81, HDL 66. TSH 1.11. Liver function studies normal. Alcohol level of 1 0 and unremarkable. COVID-19 testing was negative. Past Medical History: Stroke in 2019, hypertension, coronary artery disease, dyslipidemia, diabetes, benign prostatic hypertrophy, gout. Past Surgical History: Kidney transplant in 2005, chronic kidney disease, and cardiac stents. Allergies: NO KNOWN DRUG ALLERGIES. Medications: Aspirin 325 mg daily, Zetia 10 mg daily, Flovent 12 g 1 inhalation twice daily, labetal ol 200 mg twice daily, minoxidil 5 mg twice daily, Pravachol 40 mg at bedtime, Tacrolimus 5 mg with b reakfast and 4 mg with supper, Flomax 0.4 mg daily, allopurinol 100 mg daily, lisinopril 5 mg daily, mycophenolate 250 mg twice daily, and Deltasone 5 mg daily. Family History: Noncontributory. Social History: The patient does drink alcohol occasionally. Smoked in the past. Review of Systems: He has noted some lightheadedness, mild nausea, diffuse weakness, and mild chest pain. Otherwise, no visual issues. No genitourinary issues. No shortness of breath. No gastrointestinal issues. No d ermatological issues. Physical Examination: Vital Signs: Blood pressure up to 197/91, pulse 66, respiratory rate 14, temperature 97.4, and oxyge n saturation 100%. Weight 201 pounds, height 5 feet 9 inches, BMI 29.7. General: Mr. Lopez is resting well in his room. He is in no acute distress. HEENT: He is normocephalic, atraumatic. Sclerae anicteric. Oropharynx is pink and moist. Neck: Supple. Chest: Clear. Heart: Regular. Extremities: No clubbing, cyanosis, or edema. Neurologic: He is alert and oriented to person, place, time, and situation. He has no significant e xpressive or receptive aphasias. Cranial nerves 2 through 12 are intact. Motor 5/5 proximally and d istally. Sensory exam intact in upper and lower extremities. Coordination intact. Gait good stance, right arm swings. Despite the stroke, he has actually recovered and is doing very well in that resp ect. Assessment: Mr. Myers is a 67-year-old patient with chronic stroke. No acute findings on MRI. Like ly his hypotension unmasked those symptoms and that is likely from dehydration that produces syncope. With rehydration, he is back to normal. He does have multiple comorbidities including hypertension , dyslipidemia, coronary artery disease, stroke, diabetes, prostate hypertrophy, and gout. Plan: The patient may resume his aspirin, although we do recommend 81 mg daily and follow up for his uncontrolled blood pressure with his primary care physician. He is treated in the [facility] and he will follow up there along with his kidney transplant doctors. He should have his prediabetes addres sed and perhaps cut back on steroids; however, that will be determined between him and the transplant physicians after discharge. Follow up with PCP as well. JOHANN Voice ID: [id number] Report ID: [id number]
== END 2022-07-01 16:18 | disposition home or self-care (01) | DRG 683 ==
LOC: ER 14:17 → ERHOLD 16:41 → 4TH 19:16
PROVIDERS: ADMIT Internal Medicine; ATTEND Hospitalist
DX: N17.9 Acute kidney failure, unspecified (principal); I13.0 Hypertensive heart and chronic kidney disease with heart failure and stage 1 through stage 4 chronic kidney disease, or unspecified chronic kidney disease; Z94.0 Kidney transplant status; I50.32 Chronic diastolic (congestive) heart failure; E86.0 Dehydration; N13.30 Unspecified hydronephrosis; N18.31 Chronic kidney disease, stage 3a; E78.5 Hyperlipidemia, unspecified; I95.9 Hypotension, unspecified; M10.9 Gout, unspecified; N40.1 Benign prostatic hyperplasia with lower urinary tract symptoms; G47.33 Obstructive sleep apnea (adult) (pediatric); I25.10 Atherosclerotic heart disease of native coronary artery without angina pectoris; B19.20 Unspecified viral hepatitis C without hepatic coma; R35.1 Nocturia; R29.700 NIHSS score 0; R73.03 Prediabetes; Z95.5 Presence of coronary angioplasty implant and graft; Z79.82 Long term (current) use of aspirin; Z90.49 Acquired absence of other specified parts of digestive tract; Z79.52 Long term (current) use of systemic steroids; Z86.73 Personal history of transient ischemic attack (TIA), and cerebral infarction without residual deficits; Z87.891 Personal history of nicotine dependence; Z79.899 Other long term (current) drug therapy; Z20.822 Contact with and (suspected) exposure to COVID-19
CPT/HCPCS: 36415; 70450; 70544; 70553; 71045; 76770; 78582; 80048; 80061; 80076; 80197; 81003; 81015; 83036; 83735; 83880; 84100; 84443; 84484; 85025; 85379; 85610; 87811; 93005; 93880; 97161; 99285; A9540; A9558; A9577; G0480; J1644; J7512

== ENCOUNTER 2024-05-10 18:28 | Inpatient (IN) | payer OTHER ==
--- OUTSIDE RECORDS SUMMARY | 2024-05-10 18:57 | XMS REPORT | Continuity of Care Document ---
Author Name Unknown Address [address] [facility] [address] [place] [address] [facility] Address [address] [facility] 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 Marine Name Role Phone ABNER RIVERA Primary Care Physician Unavaila JASMYNE Wynne Attending Clinician Unavailable ASHWIN RICHARDS Attending Clinician Unavailabl ABNER Ball Attending Clinician Unavailable OBI-KHALIDA, STEPHENIE Attending Clinician Unavailab jono OBI-KHALIDA, STEPHENIE Attending Clinician Unavailab TOMEKA Terrell Attending Clinician Unavailable Abner Rivera MD Attending Clinician [phone] Constant[facility]ending Clin[facility] Marcos ilable 2, [facility] Attending Clinician Unavailable BEHZAD JOLLY Attending Clinician Unavailable Liane ARCOS, Naomie Coles N Attending Clinician +[phone] Behzad Jolly MD Attending Clinician +[phone] Vtc-Lab Attending Clinician Unavailable [facility]icky [facility] Attending Clinician Unavail able Abbey Harris MD Attending Clinician [phone] KAIN JULIEN Attending Clinician Unavaila KAIN Lanier Attending Clinician Unavailnelson Garcia NP, Oge[place] Attending Clinician +[phone] Lisette Watts MA Attending Clinician UnavailTomeka Vegas MD Attending Clinician +[phone] Rehan [facility], Marisela Attending Clinician Unavailable Vtc-Lab Attending Clinician Unavailable Katarzyna Morfin MD Attending Clinician [phone] KATARZYNA MORFIN Attending Clinician Unavailnelson ble Doctor Unassigned, [place] Attending Clinician U NAOMIE Ferris Attending Clinician Unacarly Reed MD, Tomeka Attending Clinician [phone] Liane ARCOS, Naomie Villeda Attending Clinician +[phone] Alan SHARIF, Nicolle Attending Clinician + Nicole ARCOS, Abner Attending Clinician + 2, [facility] Attending Clinician Unavailable Shanae ARCOS, Behzad Attending Clinician [phone] Hany [facility], Rose Pereyra Attending Clinician Unavail able NICOLLE SURESH Attending Clinician Unavailable Miguel A FUENTES, Jack Dale Attending Clinician UnavailVENITA Penny Attending Clinician Unavailable [facility], Marisela Attending Clinician Unavailable Venita Mayorga MD Attending Clinician [phone] Jt Doyle MD Attending Clinician +[phone] Shannan MATA, Junior Attending Clinician + [phone] Ashwin Richards MD Attending Clinician + [phone] DIANDRA TILLMAN Attending Clinician Unavailable DIANDRA TILLMAN Attending Clinician Unavailable TJ DOYLE Attending Clinician Unavailable Augusta FUENTES, Cassius Damon Attending Clinician Unavail able Josefina ARCOS, Nicole Barrera Attending Clinician [phone] Jackson Barber MD Attending Clinician +[phone] KURTIS KIRK Attending Clinician Unavailable KURTIS KIRK Attending Clinician Unavailable Mohit ARCOS, Parminder Treviño Attending Clinician [phone] Padmaja Emerson MD Attending Clinician +- [phone] PADMAJA EMERSON Attending Clinician Unavailmelanie Spencer RN, Penny Attending Clinician Unavailable VAN BROWN Attending Clinician Aida JUNIOR Silva Attending Clinician Unavailab jono Brown MD, Van Landin Attending Clinician ML KEYES Attending Clinician Unavailable RADHA STAHL Attending Clinician Unavailable RADHA STAHL Attending Clinician Unavailable Lab, Ang - Db Attending Clinician Unavailable UNKNOWN, ATTENDING Attending Clinician Unavailab le Unknown, Attending Attending Clinician Unavailab le Kelsie [facility], Matt Attending Clinician Unavailable Nurse, [facility] Attending Clinician Unavailable Isreal Logan MD Attending Clinician + [phone] Vaccine, [facility] Attending Clinician Unavailable SHANAE, SERAMED Attending Clinician Unavailable SHANAE, AHMED Attending Clinician Unavailable Sanya ARCOS, Alexandrea Attending Clinician [phone] ASHWIN WILSON Attending Clinician Unavailab jono Malave HEEL BRUSHER, Nkechi [place] Attending Clinician +[phone] Oscar ARCOS, Narendra Damon Attending Clinician +[phone] Ashwin Wilson MD Attending Clinician + [phone] ISREAL LOGAN Attending Clinician Unavaila thom Pelaez [facility], [place] Attending Clinician Unavaila Nelly Rueda MD Attending Clinician +[phone] NELLY PARKER Attending Clinician Unava ilable GUU_SHENG_YAW Attending Clinician Unavailable GRAMMBRENDA Attending Clinician Unavailable Gramm FOIL STAMP OPERATOR Brenda A Attending Clinician +[phone] Tech, [facility] Attending Clinician Unavaila thom Julien MD, Kain Barrera Attending Clinician + [phone] Only, [facility] Test Attending Clinician Unavailable ZARI RUIZ Attending Clinician UnavailRadha Lassiter DO Attending Clinician +[phone] [facility] Attending Clinician Unavailable Zari Morton Attending Clinician [phone] BRAN MARIE Attending Clinician Unavail able Nurse, [facility] Pob Immunization Attending Clinician Unavailable Bran Marie DO Attending Clinician [phone] Leland ARCOS, Macho Attending Clinician +[phone] MACHO HA Attending Clinician Unavailable Jerrod Garcia PA-C Attending Clinician +[phone] Jasmyne Parikh MD Attending Clinician +[phone] RAFAELA GLASER Attending Clinician Unavaila ble Lab, [facility] Pob I Attending Clinician Unavailab jono Appiah FOIL STAMP OPERATOR, Gian Attending Clinician [phone] GIAN APPIAH Attending Clinician Unavailable Provider, [facility] Attending Clinician Un available Pob, [facility] Main Attending Clinician UnavailVernon Manzano MD Attending Clinician +[phone] VERNON CLINE Attending Clinician Unavailable , [facility] Vascular Room 1 - Attending Clinician Un available RHEA SHEEHAN Attending Clinician Unavailable Kali FUENTES, Haven Cooper Attending Clinician Unavail able Regla Crooks DO Attending Clinician + [phone] Toni ARCOS, Moris Attending Clinician +[phone] MORIS MUÑOZ Attending Clinician Unavailable EVER ROTHMAN Attending Clinician Unavailable Ever Rothman MD Attending Clinician +[phone] Gus FOIL STAMP OPERATOR, Norma Attending Clinician +[phone] JUAN FRANCISCO FLORES Attending Clinician Unavailable Ileana Cates MD Attending Clinician +[phone] Pcp-Lab Attending Clinician Unavailable ILEANA CATES Attending Clinician Unavailable Luh Mak RN Attending Clinician +[phone] Anthony Mcnamara DO Attending Clinician +[phone] Era Snow MD Attending Clinician +- [phone] Khurram Snow MD Attending Clinician +[phone] KHURRAM SNOW Attending Clinician Unavailable Yuki Ortiz RN Attending Clinician +[phone] Cristian Garcia MD Attending Clinician +[phone] Paulo Brown MD Attending Clinician Pob1, Acute Care Clinic Attending Clinician Unav ailable PAULO BROWN Attending Clinician Aida cruzito Bhagat RN, Mookie Attending Clinician Unavailab jono Turcios RN, Mariah P Attending Clinician Unavaila thom Bautista PA-C, Breonna Attending Clinician [phone] Care, Provider 27 - Adult & Pedi Urgent Attendin g Clinician Unavailable Pcp, Patient Does Not Have A Attending Clinician Santy FUENTES, Erin Attending Clinician Unavailable Olya Powers PT Attending Clinician Unavailab Timmy Sears MD Attending Clinician Angelita Leavitt Attending Clinician Nadeen dexter 1, [facility] Attending Clinician Unavailable JASMYNE PARIKH Admitting Clinician Unavailable VENITA MAYORGA Admitting Clinician Unavailable Venita Mayorga MD Admitting Clinician +[phone] ABNER RIVERA Admitting Clinician Unavailable NAOMIE DOTY Admitting Clinician Unava NARENDRA Sen Admitting Clinician Unavailab Narendra Duque MD Admitting Clinician +[phone] SUSANNE_MAMTA_YAGisselle Admitting Clinician Unavailable BRENDA RAPHAEL Admitting Clinician Unavailable ISREAL LOGAN Admitting Clinician UnavailTOMEKA Wood Admitting Clinician Unavailable RADHA STAHL Admitting Clinician Unavailable Jasmyne Parikh MD Admitting Clinician +[phone] Moris Muñoz MD Admitting Clinician +[phone] MORIS MUÑOZ Admitting Clinician Unavailable Khurram Snow MD Admitting Clinician +[phone] KHURRAM SNOW Admitting Clinician Unavailable PAULO BROWN Admitting Clinician Aida vailable Payers Payer Name Policy Type Policy Number Effective Date Expirati on Date Source [facility] DUAL COMP HMO D SNP [id number] 2020 00:00:00 [facility] [id number] 2021 00:00:00 [facility] [facility] H[facility] [id number] 2020 00:00:00 MEDICARE PART A \\T\\ B [id number] 1997 00:00:00 Problems Condition Name Condition Details Condition Category Status Onset Date Resolution Date Last Treatment Date Treating Clinician Comments Source Grief reaction Grief reaction Disease Active 04-29 00:00: 00 [facility] Stressful life event affecting family Stressful life event affecting family Disease Active 1- 00:00: 00 [facility] Intermitte nt headache Intermitte nt headache Disease Active - 00:00: 00 [facility] Asymptomat ic hypertensi ve urgency Asymptomat ic hypertensi ve urgency Disease Active 1- 00:00: 00 [facility] Anemia of chronic disease Anemia of chronic disease Disease Active 1- 00:00: 00 [facility] Vitamin D deficiency Vitamin D deficiency Disease Active - 00:00: 00 [facility] Hypomagnes emia Hypomagnes emia Disease Active - 00:00: 00 [facility] Hypertensi ve kidney disease Hypertensi ve kidney disease Disease Active - 00:00: 00 [facility] Other proteinuri a Other proteinuri a Disease Active 04-29 00:00: 00 [facility] GERD without esophagiti s GERD without esophagiti s Disease Active 01-20 00:00: 00 [facility] Cigarette nicotine dependence in remission Cigarette nicotine dependence in remission Disease Active 01-20 00:00: 00 [facility] S/P CABG (coronary artery bypass graft) S/P CABG (coronary artery bypass graft) Disease Active 01-20 00:00: 00 [facility] Cigarette nicotine dependence in remission Cigarette nicotine dependence in remission Disease Active 01-20 00:00: 00 [facility] Chronic heart failure with preserved ejection fraction Chronic heart failure with preserved ejection fraction Disease Active 01-12 00:00: 00 [facility] ANG (obstructi ve sleep apnea) ANG (obstructi ve sleep apnea) Disease Active 11-11 00:00: 00 [facility] Leg edema Leg edema Disease Active 11-11 00:00: 00 [facility] Chest pain in adult Chest pain in adult Disease Active 3-06 00:00: 00 [facility] Non-STEMI (non-ST elevated myocardial infarction ) Non-STEMI (non-ST elevated myocardial infarction ) Disease Active 0 3-06 00:00: 00 [facility] detention exposure to asbestos intermediate frame tender exposure to asbestos Disease Active 0 6 00:00: 00 [facility] Vision changes Vision changes Disease Active 626 00:00: 00 [facility] Hospital discharge follow-up Hospital discharge follow-up Disease Active 8-31 00:00: 00 [facility] Hematuria, unspecifie d type Hematuria, unspecifie d type Disease Active 0 8-18 00:00: 00 [facility] Gouty arthritis of left great toe Gouty arthritis of left great toe Disease Active 0 6 00:00: 00 [facility] Post-COVID syndrome Post-COVID syndrome Disease Active 09-18 00:00: 00 [facility] Abnormal ankle brachial index (BHAVANI) Abnormal ankle brachial index (BHAVANI) Disease Active 09-18 00:00: 00 [facility] Clumsiness Clumsiness Disease Active 0 09-18 00:00: 00 [facility] Post-COVID syndrome Post-COVID syndrome Disease Active 09-18 00:00: 00 [facility] 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 Disease Active 09-18 00:00: 00 [facility] Skin rash Skin rash Disease Active 09-18 00:00: 00 [facility] Hyperchole sterolemia Hyperchole sterolemia Disease Active 0 24 00:00: 00 [facility] Mild intermitte nt chronic asthma without complicati on Mild intermitte nt chronic asthma without complicati on Disease Active 0 24 00:00: 00 [facility] Chronic allergic rhinitis Chronic allergic rhinitis Disease Active 0 24 00:00: 00 [facility] 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 Disease Active 2020-04 00:00: 00 [facility] 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 Added automatic ally from request for surgery [id number] [facility] Coronary artery disease involving [place] coronary artery of [place] heart without angina pectoris Coronary artery disease involving [place] coronary artery of [place] heart without angina pectoris Disease Active 2019-04 00:00: 00 [facility] Coronary artery disease involving [place] coronary artery of [place] heart with angina pectoris Coronary artery disease involving [place] coronary artery of [place] heart with angina pectoris Disease Active 2019-04 00:00: 00 [facility] Dyslipidem ia Dyslipidem ia Disease Active 2019-04 00:00: 00 [facility] Elevated troponin Elevated troponin Disease Active 2019-04 00:00: 00 [facility] Elevated troponin Elevated troponin Disease Active 2019-04 00:00: 00 [facility] Obesity (BMI 30-39.9) Obesity (BMI 30-39.9) Disease Active 2019-04 217 00:00: 00 [facility] Pericardia l effusion Pericardia l effusion Disease Active 5-02 00:00: 00 [facility] Pneumonia of right lower lobe due to infectious organism Pneumonia of right lower lobe due to infectious organism Disease Active 4-29 00:00: 00 [facility] Pneumonia of right lower lobe due to infectious organism Pneumonia of right lower lobe due to infectious organism Disease Active 4- 00:00: 00 [facility] Cough Cough Disease Active 4- 00:00: 00 [facility] Anxiety Anxiety Disease Active 4 00:00: 00 [facility] Mild cardiomega ly Mild cardiomega ly Disease Active 4 00:00: 00 [facility] Prediabete s Prediabete s Disease Active 2- 00:00: 00 [facility] Lacunar infarction Lacunar infarction Disease Active 2-06 00:00: 00 [facility] 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 disease Disease Active 2-06 00:00: 00 [facility] 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 Disease Active 1-08 00:00: 00 [facility] BPH without urinary obstructio n BPH without urinary obstructio n Disease Active 2018-04 0-18 00:00: 00 [facility] Nodule of lower lobe of right lung Nodule of lower lobe of right lung Disease Active 2018-04 0-06 00:00: 00 [facility] Pulmonary nodules Pulmonary nodules Disease Active 2018-04 0-06 00:00: 00 [facility] BPH with obstructio n/lower urinary tract symptoms BPH with obstructio n/lower urinary tract symptoms Disease Active 2018-04 0-03 00:00: 00 Overview: Formattin g of this note might be different from the original. Added automatic ally from request for surgery [id number] [facility] Vitamin B12 deficiency Vitamin B12 deficiency Disease Active 05-23 00:00: 00 [facility] SS-B antibody positive SS-B antibody positive Disease Active 05-23 00:00: 00 [facility] Arthralgia of multiple joints Arthralgia of multiple joints Disease Active 05-23 00:00: 00 [facility] Abnormal SPEP Abnormal SPEP Disease Active 05-23 00:00: 00 Overview: Formattin g of this note might be different from the original. Polyclona l gammopath y [facility] Hypercalce hugo Hypercalce hugo Disease Active 05-23 00:00: 00 [facility] CKD (chronic kidney disease), stage III CKD (chronic kidney disease), stage III Disease Active 16 00:00: 00 [facility] Elevated pancreatic enzyme Elevated pancreatic enzyme Disease Active 12-14 00:00: 00 [facility] Microscopi c hematuria Microscopi c hematuria Disease Active 12-14 00:00: 00 [facility] Nephrolith iasis Nephrolith iasis Disease Active 12-14 00:00: 00 Overview: Formattin g of this note might be different from the original. Of transplan sonja kidney [facility] Immunosupp ression Immunosupp ression Disease Active 12-31 00:00: 00 [facility] Diarrhea Diarrhea Disease Active 12-29 00:00: 00 [facility] Fever Fever Disease Active 12-29 00:00: 00 [facility] UTI (urinary tract infection) UTI (urinary tract infection) Disease Active 12-28 00:00: 00 [facility] HSV-2 seropositi ve HSV-2 seropositi ve Disease Active 09-11 00:00: 00 [facility] History of syphilis History of syphilis Disease Active 09-11 00:00: 00 [facility] Bilateral groin pain Bilateral groin pain Disease Active 09-05 00:00: 00 [facility] Immunosupp ressive management encounter following kidney transplant Immunosupp ressive management encounter following kidney transplant Disease Active 07-28 00:00: 00 [facility] Coronary artery disease without angina pectoris Coronary artery disease without angina pectoris Disease Active 07-23 00:00: 00 [facility] Coronary artery disease without angina pectoris Coronary artery disease without angina pectoris Disease Active 07-23 00:00: 00 [facility] Atypical chest pain Atypical chest pain Disease Active 07-23 00:00: 00 [facility] Abdominal pain Abdominal pain Disease Active 01-25 00:00: 00 [facility] Post-opera tive state Post-opera tive state Disease Active 6- 00:00: 00 [facility] Elevated serum creatinine Elevated serum creatinine Disease Active 01-21 00:00: 00 [facility] Need for prophylact ic immunother apy Need for prophylact ic immunother apy Disease Recurre nce 09-07 00:00: 00 [facility] Medicare annual wellness visit, subsequent Medicare annual wellness visit, subsequent Disease Active 09-07 00:00: 00 [facility] Kidney replaced by transplant Kidney replaced by transplant Disease Recurre nce 2011-04 00:00: 00 [facility] LEFT VENTRICULA R HYPERTROPH Y LEFT VENTRICULA R HYPERTROPH Y Disease Recurre nce 2004-04 00:00: 00 Overview: Formattin g of this note might be different from the original. 5 [facility] Hep C w/o coma, chronic Hep C w/o coma, chronic Disease Active 2004-04 00:00: 00 [facility] Severe obstructiv e sleep apnea Severe obstructiv e sleep apnea Disease Active 2003-04 00:00: 00 Overview: Formattin g of this note might be different from the original. 4ICD10 Diagnosis Term [employer]p [employer] [facility] Essential hypertensi on Essential hypertensi on Disease Recurre nce 01-24 00:00: 00 [facility] Bacteremia Bacteremia Disease Resolve d 12-31 00:00: 00 2018-05-13 00:00:00 2018-05-13 20:59:49 [facility] Sepsis due to [place] a coli Sepsis due to [place] a coli Disease Resolve d 12-31 00:00: 00 2018-05-13 00:00:00 2018-05-13 20:44:03 [facility] Pyelonephr itis Pyelonephr itis Disease Resolve d 12-31 00:00: 00 2018-05-13 00:00:00 2018-05-13 20:59:35 [facility] Acute chest pain Acute chest pain Disease Resolve d 3-28 00:00: 00 2018-05-13 00:00:00 2018-05-13 20:59:42 [facility] Pancreatit is, gallstone Pancreatit is, gallstone Disease Resolve d 6-03 00:00: 00 2014-10-16 00:00:00 2014-10-16 16:14:15 [facility] Pancreatit is, acute Pancreatit is, acute Disease Resolve d 09-16 00:00: 00 2014-10-16 00:00:00 2014-10-16 16:14:11 [facility] Calcineuri n inhibitor toxicity, therapeuti c use Calcineuri n inhibitor toxicity, therapeuti c use Disease Resolve d 01-22 00:00: 00 2014-10-16 00:00:00 2021-11-11 00:26:42 [facility] Abdominal pain, other specified site Abdominal pain, other specified site Disease Resolve d 01-21 00:00: 00 2014-10-16 00:00:00 2021-11-11 00:26:42 [facility] Palpitatio ns Palpitatio ns Disease Resolve d 12-15 00:00: 00 2014-10-16 00:00:00 2014-10-16 16:14:09 [facility] Chest pain Chest pain Disease Resolve d 12-15 00:00: 00 2014-10-16 00:00:00 2021-11-11 00:17:23 [facility] Unspecifie d intestinal obstructio n Unspecifie d intestinal obstructio n Disease Resolve d 2 00:00: 00 2014-10-16 00:00:00 2014-10-16 16:13:44 [facility] URIN TRACT INFECTION NOS URIN TRACT INFECTION NOS Disease Resolve d 0 5-10 00:00: 00 2014-10-16 00:00:00 2014-10-16 16:14:29 [facility] Pneumonia, organism unspecifie d(486) Pneumonia, organism unspecifie d(486) Disease Resolve d 2004-04 00:00: 00 2014-10-16 00:00:00 2014-10-16 16:14:22 [facility] Complicati on of transplant ed kidney Complicati on of transplant ed kidney Disease Resolve d 2004-04 00:00: 00 2014-10-16 00:00:00 2021-11-11 00:07:32 [facility] Complicati on of transplant ed organ Complicati on of transplant ed organ Disease Resolve d 2004-04 00:00: 00 2014-10-16 00:00:00 2021-11-11 00:12:45 [facility] Pleural effusion Pleural effusion Disease Resolve d 05-19 00:00: 00 2014-10-16 00:00:00 2015-01-27 17:42:52 [facility] Acute myocardial infarction of other specified sites, episode of care unspecifie d Acute myocardial infarction of other specified sites, episode of care unspecifie d Disease Resolve d 04-28 00:00: 00 2014-10-16 00:00:00 2014-10-16 16:14:02 [facility] Peptic ulcer Peptic ulcer Disease Resolve d 04-28 00:00: 00 2014-10-16 00:00:00 2015-01-27 17:42:52 [facility] Disease of pericardiu m Disease of pericardiu m Disease Resolve d 2014-10-16 00:00:00 2015-01-27 17:42:52 [facility] Bladder leak post transplant Bladder leak post transplant Disease Resolve d 04-29 00:00: 00 2005-05-07 00:00:00 2010-05-31 20:48:07 [facility] Hydronephr osis Hydronephr osis Disease Resolve d 2004-04 00:00: 00 2005-05-01 00:00:00 2010-05-31 20:52:10 [facility] ACUTE TUBUALR NECROSIS ACUTE TUBUALR NECROSIS Disease Resolve d 2004-04 00:00: 00 2005-03-29 00:00:00 2010-05-31 20:46:10 [facility] Seroma Seroma Disease Resolve d 2004-04 00:00: 00 2005-03-29 00:00:00 2010-05-31 20:49:57 [facility] Edema Edema Disease Resolve d 2004-04 00:00: 00 2005-03-29 00:00:00 2010-05-31 20:50:18 [facility] Urinary tract infection, site not specified Urinary tract infection, site not specified Disease Resolve d 2004-04 00:00: 00 2005-03-26 00:00:00 2010-02-08 15:14:44 [facility] End stage renal disease End stage renal disease Disease Resolve d 2003-04 00:00: 00 2005-03-08 00:00:00 2021-11-11 00:07:30 [facility] Acute edema of lung Acute edema of lung Disease Resolve d 05-19 00:00: 00 2004-05-29 00:00:00 2021-11-11 00:12:45 [facility] Allergies, Adverse Reactions, Alerts Allergy Name Allergy Type Status Severity Reaction(s) Onset Date Inactive Date Treating Clinician Comments Source NO KNOWN ALLERGIE S Drug Class Active [facility] Social History Social Habit Start Date Stop Date Quantity Comments Source Gender identity [facility] of tobacco use Cigarette Smoker [facility] History SDOH Alcohol Frequency [facility] History SDOH Alcohol Std Drinks [facility] History SDOH Alcohol Binge [facility] Alcoholic beverage intake 2024-04-29 00:00:00 2024-04-29 00:00:00 Current non-drinker of alcohol (finding) [facility] History of Social function 2024-01-21 00:00:00 2024-01-21 00:00:00 [facility] Tobacco use and exposure 2023-10-07 00:00:00 2023-10-07 00:00:00 Smokeless tobacco non-user [facility] Alcohol intake 2023-07-31 00:00:00 2023-07-31 00:00:00 Current non-drinker of alcohol (finding) [facility] Exposure to SARS-CoV-2 (event) 2022-09-14 00:00:00 2022-09-24 13:34:00 Not sure [facility] Tobacco Comment 2021-11-14 00:00:00 2021-11-14 00:00:00 Denies. Former smoker , 0.5 ppd Quit 6 yrs ago [facility] Cigarettes smoked current (pack per day) - Reported 2021-11-14 00:00:00 2021-11-14 00:00:00 [facility] Education 2019-02-12 00:00:00 2019-02-12 00:00:00 17 [facility] History SDOH Financial 2019-02-12 00:00:00 2019-02-12 00:00:00 5 [facility] Alcohol Comment 2009-12-15 00:00:00 2009-12-15 00:00:00 social drinker, no etoh after transplant [facility] Sex assigned at 1955 00:00:00 1955 00:00:00 [facility] Smoking Status Start Date Stop Date Source Ex-smoker 2023-10-07 00:00:00 2023-10-07 [facility] Ordered Medication Name Filled Medication Name Start Date Stop Date Current Medication? Ordering Clinician Indication Dosage Frequency Signature (SIG) Comments Components Source Magnesium 250 mg Tab 04-29 00:00: 00 Yes [id number] 1{tbl} Take 1 tablet by mouth in the morning. [facility] fluticasone propionate 50 mcg/actuati on nasal spray 2023-04 00:00: 00 Yes [id number] SPRAY 2 SPRAYS INTO EACH NOSTRIL IN THE MORNING [facility] lisinopriL 10 mg tablet 2023-04 00:00: 00 Yes [id number] 10mg Take 1 tablet by mouth in the morning. [facility] dupilumab (DUPIXENT PEN) 300 mg/2 mL PnIj 2023-04 00:00: 00 06-22 05:59 :00 Yes [id number] 300mg inject 1 Pen under the skin every 14 (fourteen) days [facility] fluticasone propionate 50 mcg/actuati on nasal spray 2023-04 00:00: 00 04-19 00:00 :00 No [id number] SPRAY 2 SPRAYS INTO EACH NOSTRIL IN THE MORNING [facility] fluticasone propionate 50 mcg/actuati on nasal spray 2023-04 00:00: 00 03-19 00:00 :00 No [id number] SPRAY 2 SPRAYS INTO EACH NOSTRIL IN THE MORNING [facility] tamsulosin 0.4 mg 24 hr capsule 01-20 00:00: 00 Yes [id number] .8mg Take 2 capsules by mouth at bedtime. [facility] sucralfate 1 gram tablet 01-20 00:00: 00 Yes [id number] TAKE 1 TABLET BY MOUTH FOUR TIMES A DAY [facility] pravastatin 40 mg tablet 01-20 00:00: 00 Yes [id number] 40mg Take 1 tablet by mouth at bedtime. [facility] mirtazapine 7.5 mg tablet 01-20 00:00: 00 Yes [id number] 7.5mg Take 1 tablet by mouth at bedtime. [facility] ezetimibe 10 mg tablet 01-20 00:00: 00 Yes [id number] 10mg Take 1 tablet by mouth in the morning. [facility] allopurinoL 100 mg tablet 01-20 00:00: 00 Yes [id number] 100mg Take 1 tablet by mouth in the morning. [facility] fluticasone propionate 50 mcg/actuati on nasal spray 01-20 00:00: 00 02-14 00:00 :00 No [id number] 2{spray } Use 2 Sprays in each nostril in the morning. [facility] labetaloL 200 mg tablet 2024-0 9-13 00:00: 00 Yes [id number] 400mg Take 2 tablets by mouth every 12 (twelve) hours. [facility] lisinopriL 10 mg tablet 0 9-09 00:00: 00 04-12 00:00 :00 No [id number] 10mg Take 1 tablet by mouth in the morning. [facility] PRAVASTATIN 40 mg tablet 8- 00:00: 00 01-20 00:00 :00 No [id number] 40mg TAKE 1 TABLET BY MOUTH EVERYDAY AT BEDTIME [facility] FUROSEMIDE 20 mg tablet 8-07 00:00: 00 Yes [id number] 20mg TAKE 1 TABLET BY MOUTH EVERY MORNING AND EVENING. [facility] labetaloL 200 mg tablet 7- 00:00: 00 Yes [id number] 400mg Take 2 tablets by mouth every 12 (twelve) hours. [facility] mycophenola te 250 mg capsule 6-20 00:00: 00 Yes 500mg Take 2 capsules by mouth every 12 (twelve) hours. OR PER TRANSPLANT DOCTOR. Z 94.0 Kidney transplant Generic permitted Indication s: z94.0 kidney transplant [facility] furosemide 20 mg tablet 0 6-20 00:00: 00 12-02 00:00 :00 No [id number] 20mg Take 1 tablet by mouth every morning and evening. [facility] furosemide 20 mg tablet 0 6-11 00:00: 00 10-15 00:00 :00 No [id number] 20mg Take 1 tablet by mouth in the morning. [facility] minoxidiL 10 mg tablet 0 5-28 00:00: 00 Yes [id number] TAKE 1/2 TABLET BY MOUTH TWICE A DAY [facility] furosemide 20 mg tablet 0 5-14 00:00: 00 10-06 00:00 :00 No [id number] 20mg Take 1 tablet by mouth as needed (swelling) . [facility] PREDNISONE 5 mg tablet 0 5-02 00:00: 00 Yes [id number] 5mg TAKE 1 TABLET BY MOUTH EVERY DAY IN THE MORNING [facility] TAMSULOSIN 0.4 mg 24 hr capsule 08-27 00:00: 00 01-20 00:00 :00 No [id number] .8mg TAKE 2 CAPSULES BY MOUTH AT BEDTIME [facility] pravastatin 40 mg tablet 08-27 00:00: 00 12-04 00:00 :00 No [id number] 40mg TAKE 1 TABLET BY MOUTH EVERYDAY AT BEDTIME [facility] triamcinolo ne acetonide 0.1 % cream 08-20 00:00: 00 Yes [id number] Apply to area(s) 2 (two) times daily. [facility] dupilumab (DUPIXENT PEN) 300 mg/2 mL PnIj 08-20 00:00: 00 03-13 05:59 :00 No [id number] 300mg inject 1 Pen under the skin every 14 (fourteen) days [facility] dupilumab (DUPIXENT PEN) 300 mg/2 mL PnIj 08-20 00:00: 00 09-03 04:59 :00 No [id number] 600mg inject 2 Pens under the skin once now for 1 dose. [facility] digoxin 125 mcg tablet 07-16 00:00: 00 08-16 04:59 :00 No [id number] .125mg Take 1 tablet by mouth in the morning for 30 days. [facility] aspirin 81 mg chewable tablet 07-15 00:00: 00 07-16 04:59 :00 No [id number] 81mg Take 1 tablet by mouth in the morning. [facility] labetaloL 200 mg tablet 07-15 00:00: 00 09-14 04:59 :00 No [id number] 400mg Take 2 tablets by mouth every 12 (twelve) hours for 60 days. [facility] lisinopriL 5 mg tablet 07-15 00:00: 00 09-14 04:59 :00 No [id number] 5mg Take 1 tablet by mouth in the morning for 60 days. [facility] ferrous sulfate 325 mg (65 mg iron) tablet 07-15 00:00: 00 08-15 04:59 :00 No [id number] 325mg Take 1 tablet by mouth every Friday, Friday and Friday for 30 days. [facility] acetaminoph en 325 mg tablet 07-15 00:00: 00 08-06 04:59 :00 No [id number] 650mg Take 2 tablets by mouth every 6 (six) hours as needed for Pain (scale 1-3) for up to 21 days. [facility] gabapentin 100 mg capsule 07-15 00:00: 00 08-06 04:59 :00 No [id number] 100mg Take 1 capsule by mouth in the morning and 1 capsule at noon and 1 capsule in the evening. Do all this for 21 days. [facility] methocarbam oL 500 mg tablet 07-15 00:00: 00 07-30 04:59 :00 No [id number] 500mg Take 1 tablet by mouth 4 (four) times daily for 14 days. [facility] acetaminoph en-codeine 300-15 mg tablet 07-15 00:00: 00 07-23 04:59 :00 No [id number] 1{tbl} Take 1 tablet by mouth every 4 (four) hours as needed for Pain (Pain 7-10) for up to 7 days. Indication s: acute pain [facility] furosemide 20 mg tablet 20 00:00: 00 07-21 04:59 :00 No [id number] 20mg Take 1 tablet by mouth every morning and evening for 5 days. [facility] spironolact one 25 mg tablet 07-15 00:00: 00 07-21 04:59 :00 No [id number] 25mg Take 1 tablet by mouth in the morning for 5 days. [facility] ferrous sulfate tablet 325 mg 2023-18 14:00: 00 Yes 325mg 325 mg, Oral, QM// FRI, First dose on Fri07/14/23 at 0900, Until Discontinu ed, Routine [facility] digoxin (LANOXIN) tablet 125 mcg 07-11 14:00: 00 08-10 13:59 :00 No 125ug 125 mcg, Oral, DAILY, 30 doses, First dose on 07/12/23 at 0900, Last dose on 08/10/23 at 0900, Routine [facility] digoxin (LANOXIN) injection 500 mcg 07-11 02:00: 00 07-11 01:52 :00 No 500ug 500 mcg, Intravenou s, ONCE NOW, 1 dose, On Fri07/11/23 at 2100, Routine [facility] ondansetron (ZOFRAN (PF)) injection 4 mg 07-10 18:07: 07 Yes 4mg 4 mg, Slow IV Push, Q6HPRN, Starting on Fri07/11/23 at 1307, Until Discontinu ed, Routine, Nausea and Vomiting (N/V) [facility] sodium phosphates (READY-TO-U SE ENEMA) 19-7 gram/118 mL enema 1 Enema 07-10 18:07: 06 Yes 1{enema } 1 Enema, Rectal, PRN - SEE INSTRUCTIO NS, 1 dose, Starting on Fri07/11/23 at 1307, Until Discontinu ed, Routine, Constipati on, For bowel movemnet [facility] bisacodyL (DULCOLAX) suppository 10 mg 07-10 18:07: 06 Yes 10mg 10 mg, Rectal, PRN - SEE INSTRUCTIO NS, 1 dose, Starting on Fri07/11/23 at 1307, Until Discontinu ed, Routine, Constipati on, For bowel movent [facility] acetaminoph en (TYLENOL) tablet 650 mg 07-10 18:07: 06 Yes 650mg 650 mg, Oral, Q6HPRN, Starting on Fri07/11/23 at 1307, Until Discontinu ed, Routine, Temp > 38 C [facility] acetaminoph en-codeine (TYLENOL #3) 300-30 mg tablet 2 tablet 07-10 18:07: 06 Yes 2{tbl} 2 tablet, Oral, Q4HPRN, Starting on Fri07/11/23 at 1307, Until Discontinu ed, Routine, Pain (scale 7-10) [facility] spironolact one (ALDACTONE) tablet 25 mg 07-10 14:00: 00 Yes 25mg 25 mg, Oral, DAILY, First dose on Fri07/11/23 at 0900, Until Discontinu ed, Routine [facility] gabapentin (NEURONTIN) capsule 100 mg 07-09 19:00: 00 Yes 100mg 100 mg, Oral, TID, First dose (after last modificati on) on Fri07/10/23 at 1400, Until Discontinu ed, Routine [facility] methocarbam oL (ROBAXIN) injection 1,000 mg 07-09 19:00: 00 Yes 1000mg 1,000 mg, Slow IV Push, Q8H, First dose (after last modificati on) on Fri07/10/23 at 1400, Until Discontinu ed, Administer over 3-5 Minutes [facility] lisinopriL (PRINIVIL,Z ESTRIL) tablet 10 mg 07-09 14:00: 00 Yes 10mg 10 mg, Oral, DAILY, First dose on Fri07/10/23 at 0900, Until Discontinu ed, Routine [facility] furosemide (LASIX) tablet 20 mg 07-09 14:00: 00 Yes 20mg 20 mg, Oral, QAM+PM, First dose on Fri07/10/23 at 0900, Until Discontinu ed, Routine [facility] labetaloL (NORMODYNE) tablet 400 mg 07-09 13:00: 00 Yes 400mg 400 mg, Oral, Q12H, First dose (after last modificati on) on Fri07/10/23 at 0800, Until Discontinu ed, Routine [facility] acetaminoph en-codeine (TYLENOL #2) 300-15 mg tablet 2 tablet 07-09 12:41: 49 Yes 2{tbl} 2 tablet, Oral, Q4HPRN, Starting on Fri07/10/23 at 0741, Until Discontinu ed, Routine, Pain (scale 4-6) [facility] acetaminoph en-codeine (TYLENOL #2) 300-15 mg tablet 1 tablet 07-09 12:41: 02 Yes 1{tbl} 1 tablet, Oral, Q4HPRN, Starting on Fri07/10/23 at 0741, Until Discontinu ed, Routine, Pain (scale 1-3) [facility] lactated ringers IV infusion 1,000 mL 07-09 10:45: 00 07-14 20:58 :57 No 1000mL at 50 mL/hr, 1,000 mL, IV Infusion, CONTINUOUS , Starting on Fri07/10/23 at 0545, Until Fri07/15/23 at 1558, Routine [facility] HYDROcodone -acetaminop hen (NORCO) 10-325 mg tablet 1 tablet 07-09 09:38: 06 07-09 11:55 :00 No 1{tbl} 1 tablet, Oral, Q6HPRN, 1 dose, Starting on Fri07/10/23 at 0438, Until Discontinu ed, Routine, Pain (scale 4-6) [facility] FENTanyl 1000 mcg/100 mL 0.9% NaCl POLO COACH 07-09 01:30: 00 07-09 19:54 :43 No Patient Bolus Dose: 20 mcg
Loc kout Interval: 7 Minutes
Basal Rate: 0 mcg/hr
Four Hour Dose Limit: 250 mcg
IV Infusion, 100 mL, CONTINUOUS , Starting on Fri07/09/23 at 2030, Until Fri07/10/23 at 1454 [facility] mycophenola te (CELLCEPT) capsule 250 mg 07-09 01:00: 00 Yes 250mg 250 mg, Oral, Q12H, First dose (after last modificati on) on Fri07/09/23 at 2000, Until Discontinu ed, Routine [facility] HYDROcodone -acetaminop hen (NORCO) 10-325 mg tablet 1 tablet 07-08 22:36: 08 07-09 05:23 :00 No 1{tbl} 1 tablet, Oral, Q6HPRN, 2 doses, Starting on Fri07/09/23 at 1736, Until Discontinu ed, Routine, Pain (scale 4-6) [facility] labetaloL (NORMODYNE) tablet 100 mg 07-08 20:30: 00 07-09 12:15 :35 No 100mg 100 mg, Oral, Q12H, First dose (after last modificati on) on Fri07/09/23 at 1530, Until Discontinu ed, Routine [facility] acetaminoph en (TYLENOL) tablet 650 mg 07-08 17:00: 00 Yes 650mg 650 mg, Oral, Q6H, First dose (after last modificati on) on Fri07/09/23 at 1200, Until Discontinu ed, NAKUL [facility] furosemide (LASIX) injection 40 mg 07-08 16:00: 00 07-08 17:36 :00 No 40mg 40 mg, Slow IV Push, ONCE, 1 dose, On Fri07/09/23 at 1100, Routine [facility] sodium phosphate 15 mmol in NaCl 0.9% (NS) 250 mL piggyback 07-08 15:00: 00 07-08 19:19 :00 No 15mmol 15 mmol, IV Piggyback, ONCE, 1 dose, On Fri07/09/23 at 1000, Administer over 4 Hours, 250 mL [facility] sennosides (SENOKOT) tablet 8.6 mg 07-08 14:00: 00 Yes 8.6mg 8.6 mg, Oral, DAILY, First dose on Fri07/09/23 at 0900, Until Discontinu ed, Routine [facility] docusate (COLACE) capsule 100 mg 07-08 14:00: 00 Yes 100mg 100 mg, Oral, DAILY, First dose on Fri07/09/23 at 0900, Until Discontinu ed, Routine [facility] heparin (porcine) injection 5,000 Units 07-08 13:00: 00 Yes 5000U 5,000 Units, Subcutaneo us, Q12H, First dose on Fri07/09/23 at 0800, Until Discontinu ed, Routine [facility] propofoL IV infusion 07-08 03:03: 18 07-08 19:08 :15 No 5ug/kg/ min 5-50 mcg/kg/min ?88.9 kg (2.667-26. 67 mL/hr, rounded to 2.67-26.67 mL/hr), IV Infusion, TITRATE, Sedation-R ASS score (-4 to -5), Starting on Fri07/08/23 at 2203, For 1 day
Ini tiate infusion at 5 mcg/kg/min and titrate by 5 mcg/kg/min every 30 seconds to 10 minutes to goal sedation score. Maximum dose = 50 mcg/kg/min . If goal not maintained at maximum allowed dose, contact prescriber . Inst ructions in the first 2 hours in ICU, if patient is hypertensi ve (systolic blood pressure persists > 150 MAP > 100), the infusion rate may be increased to a maximum of 50 mcg/kg/min . Stop propofol when bladder or other central temperatur e is => 36 C. May use morphine at this time (may require order to be entered) if sedation is still needed. Do not continue propofol after central temperatur e is > 36 C unless requested by [address] Resident or Faculty or SICU Faculty. Tubing and unused portions of vials should be discarded after 12 hours
[facility] thrombin (recombinan t) (RECOTHROM) topical solution 07-08 02:03: 00 07-08 02:27 :25 No PRN, Starting on Fri07/08/23 at 2103, Until Fri07/08/23 at 2127, Routine, Intra-op [facility] albumin (ALBUTEIN 5 %) 5 % injection 25 g 07-08 00:45: 00 07-09 00:15 :00 No 25g 25 g, IV Infusion, ONCE, 1 dose, On Fri07/08/23 at 1945, 500 mL
Irene cation: POST-OPERA TIVE VOLUME RESUSCITAT ION-CARDIA C SURGERY
Comments: May only be used if 3L or more of crystalloi d has been administer ed within a given 24 hour period without an adequate hemodynami c response. [facility] heparin 1,000 unit/mL 30,000 Units in NaCl 0.9% (NS) 1,000 mL OR irrigation 07-08 00:44: 00 07-08 02:27 :25 No PRN, Starting on Fri07/08/23 at 1944, Intra-op [facility] FENTanyl PF (SUBLIMAZE (PF)) injection 50 mcg 07-08 00:30: 00 07-07 23:47 :00 No 50ug 50 mcg, Slow IV Push, ONCE, 1 dose, On Fri07/08/23 at 1930, Routine [facility] dexMEDEtomi dine 200 mcg in 0.9 % NaCl 50 mL (PRECEDEX) RTU IV infusion 07-07 23:52: 58 07-09 14:12 :41 No .2ug/kg /h 0.2-1.5 mcg/kg/hr ?88.9 kg (4.445-33. 3375 mL/hr, rounded to 4.45-33.34 mL/hr), IV Infusion, TITRATE, Sedation-R ASS score (0 to -1), Starting on Fri07/08/23 at 1852
In itiate infusion at 0.2 mcg/kg/hr and titrate by 0.1 mcg/kg/hr every 30 minutes to goal sedation score. Maximum dose = 1.5 mcg/kg/hr. If goal not maintained at maximum allowed dose, contact prescriber .
[facility] niCARdipine (CARDENE I.V.) 40 mg in NaCL 200 mL (RTU) infusion 07-07 23:51: 36 07-11 12:50 :52 No 2.5mg/h 2.5-15 mg/hr (12.5-75 mL/hr), IV Infusion, TITRATE, SBP Goal < 180 mmHg, DBP Goal < 110 mmHg, systolics > 140, Starting on Fri07/08/23 at 1851
In itiate infusion at 2.5 mg/hr.&nbs p; Ti trate by 2.5 mg/hr every 5 minutes to 15 minutes as needed to achieve and maintain goal blood pressure. Maximum dose = 15 mg/hr. If goal not maintained at maximum allowed dose, contact prescriber .
[facility] aspirin chewable tablet 81 mg 07-07 23:30: 00 Yes 81mg 81 mg, Oral, DAILY, First dose on Fri07/08/23 at 1830, Until Discontinu ed, Routine [facility] protamine 25 mg in D5W 50 mL IV piggyback 07-07 21:15: 00 07-09 00:16 :00 No 25mg 25 mg, IV Piggyback, ONCE, 1 dose, On Fri07/08/23 at 1615, 50 mL
Prev ious Anticoagul ant: Unfraction ated Heparin
Calculate total units of heparin administer ed over last 2 hours: N/a
Recommenda tion: 1 mg of protamine neutralize s 100 units of unfraction ated heparin (max dose 50 mg). [facility] Sliding Scale Insulin - Lispro (HUMALOG) 07-07 21:00: 00 Yes Subcutaneo us, Q4H, First dose on Fri07/08/23 at 1600, Until Discontinu ed, Routine [facility] albumin (ALBUTEIN 5 %) 5 % injection 25 g 07-07 20:30: 00 07-08 23:00 :00 No 25g 25 g, IV Infusion, ONCE, 1 dose, On Fri07/08/23 at 1530, 500 mL
Irene cation: POST-OPERA TIVE VOLUME RESUSCITAT ION-CARDIA C SURGERY
Comments: May only be used if 3L or more of crystalloi d has been administer ed within a given 24 hour period without an adequate hemodynami c response. [facility] D5W-LR IV infusion 1,000 mL 07-07 19:15: 00 07-09 09:31 :04 No 1000mL at 50 mL/hr, IV Infusion, CONTINUOUS , Starting on Fri07/08/23 at 1415, Until Peg 07/10/23 at 0431, NAKUL [facility] furosemide (LASIX) injection 20 mg 07-07 19:09: 15 Yes 20mg 20 mg, IV Push, PRN, 2 doses, Starting on Fri07/08/23 at 1409, Until Discontinu ed, NAKUL, Pressure Maintenanc e [facility] NaCl 0.9% (NS) bolus infusion 250 mL 07-07 19:09: 15 Yes 250mL at 999 mL/hr, 250 mL, IV Infusion, PRN - SEE INSTRUCTIO NS, 3 doses, Starting on Fri07/08/23 at 1409, Until Discontinu ed, NAKUL [facility] dextrose 10% (D10W) bolus infusion 250 mL 07-07 19:09: 15 Yes 250mL 250 mL, IV Infusion, PRN - SEE INSTRUCTIO NS, Administer over 60 Minutes, Other, If blood glucose is < or = 70 mg/dL and patient is unable to swallow or has mental status changes, Starting on Fri07/08/23 at 1409
If blood glucose is < or = 70 mg/dL and patient is unable to swallow or has mental status changes (Give glucagon order if patient needs fluid restrictio n): IF IV access available: Dextrose 10%. 1. 125 mL (? bag) of D10W IV infusion - equivalent to 12.5 g dextrose 2. Blood glucose - draw blood glucose 15 minutes after D10W Administra tion. 3. If blood glucose is < 80 mg/dL, repeat.
[facility] glucagon (GLUCAGEN DIAGNOSTIC KIT) injection 1 mg 07-07 19:09: 15 Yes 1mg 1 mg, Intramuscu lar, PRN, Starting on Fri07/08/23 at 1409, Until Discontinu ed, NAKUL, Blood Glucose < or = 70 mg/dL and patient is NPO, unable to swallow or has mental changes. [facility] dextrose 50 % in water (D50W) injection 25 mL 07-07 19:09: 15 Yes 25mL 25 mL, Slow IV Push, PRN, Starting on Fri07/08/23 at 1409, Until Discontinu ed, NAKUL, Blood Glucose < or = 70 mg/dL and patient is NPO, unable to swallow or has mental status changes. [facility] NORepinephr ine 4 mg in 0.9% NaCl 250 mL infusion RTU 07-07 19:09: 15 Yes .05ug/k g/min 0.05-1.5 mcg/kg/min ?88.9 kg (16.6688-5 00.0625 mL/hr, rounded to 16.67-500. 06 mL/hr), IV Infusion, TITRATE, MAP Goal > or = 65 mmHg, Starting on Fri07/08/23 at 1409
In itiate titration at 0.01 mcg/kg/min . &nb sp;Increas e by 0.01 mcg/kg/min every 30 seconds to 5 minutes as needed to reach and maintain goal blood pressure.& nbsp;&nbsp ;Maximum dose = 1.5 mcg/kg/min .&nbsp ; If goal not maintained at maximum allowed dose, contact prescriber .
[facility] naloxone (NARCAN) injection 0.4 mg 07-07 19:09: 15 Yes .4mg 0.4 mg, Slow IV Push, PRN, Starting on Fri07/08/23 at 1409, Until Discontinu ed, Routine, Sedation/R espiratory Depression [facility] propofoL IV infusion 07-07 19:09: 15 07-08 03:03 :40 No 5ug/kg/ min 5-50 mcg/kg/min ?88.9 kg (2.667-26. 67 mL/hr, rounded to 2.67-26.67 mL/hr), IV Infusion, TITRATE, Sedation-R ASS score (0 to -1), Starting on Fri07/08/23 at 1409, For 1 day
Ini tiate infusion at 5 mcg/kg/min and titrate by 5 mcg/kg/min every 30 seconds to 10 minutes to goal sedation score. Maximum dose = 50 mcg/kg/min . If goal not maintained at maximum allowed dose, contact prescriber . &nbs p;Instruct ions in the first 2 hours in ICU, if patient is hypertensi ve (systolic blood pressure persists > 150 MAP > 100), the infusion rate may be increased to a maximum of 50 mcg/kg/min . Stop propofol when bladder or other central temperatur e is => 36 C. May use morphine at this time (may require order to be entered) if sedation is still needed. Do not continue propofol after central temperatur e is > 36 C unless requested by [address] Resident or Faculty or SICU Faculty. Tubing and unused portions of vials should be discarded after 12 hours
[facility] [facility] heparin 1,000 unit/mL 2,500 Units, papaverine 60 mg in NaCl 0.9% (NS) 100 mL OR irrigation 07-07 12:52: 00 07-07 19:08 :14 No PRN, Starting on Fri07/08/23 at 0752, Intra-op [facility] heparin 1,000 unit/mL 5,000 Units, papaverine 60 mg in NaCl 0.9% (NS) 500 mL OR irrigation 07-07 12:51: 00 07-07 19:08 :14 No PRN, Starting on Fri07/08/23 at 0751, [facility]-op [facility] heparin 1,000 unit/mL 30,000 Units in NaCl 0.9% (NS) 1,000 mL OR irrigation 07-07 12:51: 00 07-07 19:08 :14 No PRN, Starting on Fri07/08/23 at 0751, Intra-op [facility] ceFAZolin (ANCEF) 1 g in NaCl 0.9% (NS) 1,000 mL OR irrigation 07-07 12:51: 00 07-07 19:08 :14 No PRN, Starting on Fri07/08/23 at 0751, Intra-op [facility] thrombin (recombinan t) (RECOTHROM) topical solution 07-07 12:50: 00 07-07 19:08 :14 No PRN, Starting on Fri07/08/23 at 0750, Until Fri07/08/23 at 1408, Routine, Intra-op [facility] metoprolol tartrate (LOPRESSOR) tablet 25 mg 07-07 10:00: 00 07-07 21:59 :00 No 25mg 25 mg, Oral, ONCE, 1 dose, On Fri07/08/23 at 0500, Routine [facility] magnesium sulfate in water 4 gram/50 mL (8 %) IV Piggyback 4 g 07-07 06:00: 00 07-07 07:43 :00 No 4g 4 g, IV Piggyback, at 25 mL/hr Administer over 120 Minutes, ONCE, 1 dose, On Fri07/08/23 at 0100, Routine [facility] sodium phosphates (READY-TO-U SE ENEMA) 19-7 gram/118 mL enema 1 Enema 07-07 02:00: 00 07-07 13:59 :00 No 1{enema } 1 Enema, Rectal, ONCE, 1 dose, On Fri07/07/23 at 2100, Routine [facility] bisacodyL (DULCOLAX) suppository 10 mg 07-07 00:00: 00 07-07 11:59 :00 No 10mg 10 mg, Rectal, ONCE, 1 dose, On Fri07/07/23 at 1900, Routine [facility] hydrALAZINE (APRESOLINE ) tablet 10 mg 07-06 16:30: 41 Yes 10mg 10 mg, Oral, Q6HPRN, Starting on Fri07/07/23 at 1130, Until Discontinu ed, Routine, Hypertensi on [facility] magnesium sulfate in water 4 gram/50 mL (8 %) IV Piggyback 4 g 07-06 13:15: 00 07-06 16:46 :00 No 4g 4 g, IV Piggyback, at 25 mL/hr Administer over 120 Minutes, ONCE, 1 dose, On Fri07/07/23 at 0815, Routine [facility] chlorhexidi ne (WESLEY-HEX) 4 % liquid 07-06 12:15: 00 07-06 12:15 :00 No Topical, ONCE, 1 dose, On Fri07/07/23 at 0715, Routine [facility] iodixanol (VISIPAQUE 320-100 mL) injection 07-03 22:39: 33 07-03 22:59 :18 No ONCE INTRA PROCEDURE, Starting on Fri07/04/23 at 1639, Until Fri07/04/23 at 1659, Routine, CV Intraproce dure [facility] nitroglycer in (TRIDIL) 2 mg in 10 mL D5W for Cardiac Cath 07-03 22:30: 07 07-03 22:59 :18 No ONCE INTRA PROCEDURE, Starting on Fri07/04/23 at 1630, Until Fri07/04/23 at 1659, Routine, CV Intraproce dure [facility] NaCl 0.9% (NS) bolus infusion 07-03 22:25: 00 07-03 22:59 :17 No CONTINUOUS PRN, Starting on Fri07/04/23 at 1625, Until Fri07/04/23 at 1659, STAT, CV Intraproce dure [facility] lidocaine 1% (PF) (XYLOCAINE) injection 07-03 22:06: 36 07-03 22:59 :18 No ONCE INTRA PROCEDURE, Starting on Fri07/04/23 at 1606, Until Fri07/04/23 at 1659, Routine, CV Intraproce dure [facility] FENTanyl PF (SUBLIMAZE (PF)) injection 07-03 21:47: 15 07-03 22:59 :18 No ONCE INTRA PROCEDURE, Starting on Fri07/04/23 at 1547, Until Fri07/04/23 at 1659, Routine, CV Intraproce dure [facility] midazolam (VERSED) injection 07-03 21:47: 10 07-03 22:59 :18 No ONCE INTRA PROCEDURE, Starting on Fri07/04/23 at 1547, Until Fri07/04/23 at 1659, Routine, CV Intraproce dure [facility] NaCl 0.9% (NS) IV infusion 500 mL 07-03 10:00: 00 07-03 08:56 :57 No 500mL at 75 mL/hr, IV Infusion, ONCE, 1 dose, On Fri07/04/23 at 0400, Routine [facility] mirtazapine (REMERON) tablet 7.5 mg 07-03 03:00: 00 Yes 7.5mg 7.5 mg, Oral, QHS, First dose on Fri07/03/23 at 2100, Until Discontinu ed, Routine [facility] atorvastati n (LIPITOR) tablet 40 mg 07-03 03:00: 00 Yes 40mg 40 mg, Oral, QHS, First dose on Fri07/03/23 at 2100, Until Discontinu ed, Routine [facility] tamsulosin (FLOMAX) capsule 0.8 mg 07-03 03:00: 00 Yes .8mg 0.8 mg, Oral, QHS, First dose on Fri07/03/23 at 2100, Until Discontinu ed, Routine [facility] tacrolimus (PROGRAF) capsule 5 mg 07-03 02:00: 00 Yes 5mg 5 mg, Oral, Q12H, First dose on Peg 07/03/23 at 2000, Until Discontinu ed, Routine
[employer] sales agent approving Restricted medication : NAOMIE BUCKNER [facility] sulfur hexafluorid e microsphr (LUMASON) injection 5 mL 07-02 17:00: 00 07-02 17:00 :00 No [id number] 5mL 5 mL, Intravenou s, ONCE, 1 dose, On Fri07/03/23 at 1100, Routine [facility] isosorbide mononitrate (IMDUR) 24 hr tablet 30 mg 07-02 16:45: 00 07-06 12:15 :27 No 30mg 30 mg, Oral, DAILY, First dose on Peg 07/03/23 at 1045, Until Discontinu ed, Routine [facility] aspirin chewable tablet 81 mg 07-02 15:00: 00 Yes 81mg 81 mg, Oral, DAILY, First dose on Peg 07/03/23 at 0900, Until Discontinu ed, Routine [facility] sennosides- docusate sodium (SENOKOT-S) 8.6-50 mg per tablet 1 tablet 07-02 15:00: 00 Yes 1{tbl} 1 tablet, Oral, DAILY, First dose on Peg 07/03/23 at 0900, Until Discontinu ed, Routine [facility] predniSONE (DELTASONE) tablet 5 mg 07-02 15:00: 00 Yes 5mg 5 mg, Oral, DAILY, First dose on Peg 07/03/23 at 0900, Until Discontinu ed, Routine [facility] pantoprazol e (PROTONIX) EC tablet 40 mg 07-02 15:00: 00 Yes 40mg 40 mg, Oral, DAILY, First dose on Peg 07/03/23 at 0900, Until [facility]continu ed [facility] flut[facility] propionate 50 mcg/actuati on nasal spray 2 [place] 07-02 15:00: 00 Yes 2{spray } 2 [place], Nasal, DAILY, First dose on Peg 07/03/23 at 0900, Until Discontinu ed, Routine [facility] ezetimibe (ZETIA) tablet 10 mg 07-02 15:00: 00 Yes 10mg 10 mg, Oral, DAILY, First dose on Peg 07/03/23 at 0900, Until Discontinu ed, Routine [facility] allopurinoL (ZYLOPRIM) tablet 100 mg 07-02 15:00: 00 Yes 100mg 100 mg, Oral, DAILY, First dose on Peg 3/7/24 at 0900, Until Discontinu ed, Routine [facility] lisinopriL (PRINIVIL,Z ESTRIL) tablet 10 mg 07-02 15:00: 00 07-06 12:15 :27 No 10mg 10 mg, Oral, DAILY, First dose on Peg 07/03/23 at 0900, Until Discontinu ed, Routine [facility] sucralfate (CARAFATE) tablet 1 g 07-02 14:00: 00 Yes 1g 1 g, Oral, QID, First dose on Peg 07/03/23 at 0800, Until Discontinu ed, Routine [facility] mycophenola te (CELLCEPT) capsule 500 mg 07-02 14:00: 00 Yes 500mg 500 mg, Oral, Q12H, First dose on Peg 07/03/23 at 0800, Until Discontinu ed, Routine [facility] fluticasone propionate (FLOVENT HFA) 220 mcg/actuati on inhaler 1 Puff 07-02 14:00: 00 Yes 1{puff} 1 Puff, Inhalation , Q12H, First dose on Peg 07/03/23 at 0800, Until Discontinu ed, Routine
Is this order for a patient with suspected or confirmed COVID-19 infection? No [facility] minoxidiL (LONITEN) tablet 5 mg 07-02 14:00: 00 07-06 15:18 :50 No 5mg 5 mg, Oral, BID, First dose on Peg 07/03/23 at 0800, Until Discontinu ed, Routine [facility] labetaloL (NORMODYNE) tablet 400 mg 07-02 14:00: 00 07-06 12:15 :27 No 400mg 400 mg, Oral, Q12H, First dose on Peg 07/03/23 at 0800, Until Discontinu ed, Routine [facility] KCL (KLOR-CON M20) tablet 40 mEq 07-02 13:45: 00 07-02 15:22 :00 No 40meq 40 mEq, Oral, ONCE, 1 dose, On Peg 07/03/23 at 0745, Routine [facility] magnesium sulfate in water 4 gram/50 mL (8 %) IV Piggyback 4 g 07-02 12:57: 00 07-02 17:15 :00 No 4g 4 g, IV Piggyback, at 25 mL/hr Administer over 120 Minutes, ONCE, 1 dose, On Peg 07/03/23 at 0700, Routine [facility] KCL (KLOR-CON M20) tablet 40 mEq 07-02 12:00: 00 07-02 11:21 :00 No 40meq 40 mEq, Oral, ONCE, 1 dose, On Peg 07/03/23 at 0600, Routine [facility] furosemide (LASIX) tablet 40 mg 07-02 06:16: 00 07-02 06:32 :00 No 40mg 40 mg, Oral, ONCE, 1 dose, On Peg 07/03/23 at 0030, Routine [facility] furosemide (LASIX) tablet 20 mg 07-02 05:57: 31 07-06 12:15 :27 No 20mg 20 mg, Oral, BIDPRN, Starting on Fri07/02/23 at 2357, Until Fri07/07/23 at 0715, Routine, swelling [facility] triamcinolo ne acetonide (TRIDERM) 0.1 % cream 07-02 05:48: 02 Yes Topical, BIDPRN, Starting on Fri07/02/23 at 2348, Until Discontinu ed, Routine, Dermatitis /Rash [facility] nitroglycer in (NITROSTAT) sublingual tablet 0.4 mg 07-02 05:47: 04 Yes .4mg 0.4 mg, Sublingual , Q5MIN PRN, Starting on Fri07/02/23 at 2347, Until Discontinu ed, Routine, Chest pain [facility] docusate (COLACE) capsule 100 mg 07-02 05:45: 29 Yes 100mg 100 mg, Oral, QDAILYPRN, Starting on Fri07/02/23 at 2345, Until Discontinu ed, Routine, Constipati on [facility] acetaminoph en (TYLENOL) tablet 650 mg 07-02 05:42: 43 Yes 650mg 650 mg, Oral, Q6HPRN, Starting on Fri07/02/23 at 2342, Until Discontinu ed, Routine, Pain (scale 1-3) [facility] aspirin tablet 325 mg 07-02 03:00: 00 07-02 01:59 :00 No 325mg 325 mg, Oral, ONCE, 1 dose, On Fri07/02/23 at 2100, STAT [facility] HEPARIN SODIUM (PORCINE) 1,000 UNIT/ML BOLUS ACS ORDER SET 07-02 02:45: 00 07-02 02:50 :00 No 4000U 4,000 Units, IV Push, ONCE, 1 dose, On Fri07/02/23 at 2044, NAKUL [facility] heparin 25,000 Units/250 mL (Premixed Bag) in 0.45 % NS 07-02 02:41: 25 Yes 0U/h 0-2,750 Units/hr (0-27.5 mL/hr), IV Infusion, TITRATE, Parameters in Admin. Instr., Starting on Fri07/02/23 at 2040
In itiate dosing:&nb sp; & nbsp;&nbsp ; -Patient 83 kg or under: 1,000 Units/hr (Calculate d dose at 12 units/kg/h r) &n bsp; &nbs p; -Patient over 83 k,000 units/hr&n bsp;DO NOT Exceed the MAXIMUM 1,000 units/hr for initiation of heparin drip.&nbsp ; CAU TION - If LMWH given in ER, AVOID bolus and start next dose/drip 12 hrs after ER dosage.&nb sp; M ust program rate using programmab le infusion pump.&nbsp ; Eryn ck with the ordering provider first prior to any administra tion should the patient be on existing/a dditional anticoagul ant therapy. Rang e, Dosing and Testing: &nbs p;FOR [facility], [facility], AND [facility] ONLY &nbs p; - aPTT < 35: & nbsp;Bolus 5000 units, increase rate 300 units/hr&n bsp; - aPTT 35-44:&nbs p; Bruno raf 3000 units, increase rate 200 units/hr&n bsp; - aPTT 45-54:&nbs p; In crease rate 100 units/hr&n bsp; - aPTT 55-85:&nbs p; NO CHANGE&nbs p; - aPTT 86-95:&nbs p; De crease rate 100 units/hr&n bsp; - aPTT 96-120:&nb sp; H old 30 minutes, decrease rate 150 units/hr&n bsp; - aPTT > 120: Hold 60 minutes, decrease rate 200 units/hr&n bsp; Check aPTT 6 hours after initiation , then Q6H after every change, aPTT Q12H once therapeuti c levels are reached.&n bsp; &nbs p; __ &n bsp;FOR [facility] ONLY - aPTT < 40: & nbsp;Bolus 5000 units, increase rate 300 units/hr&n bsp; - aPTT 40-49:&nbs p; Bruno raf 3000 units, increase rate 200 units/hr&n bsp; - aPTT 50-59:&nbs p; In crease rate 100 units/hr&n bsp; - aPTT 60-85:&nbs p; NO CHANGE&nbs p; - aPTT 86-95:&nbs p; De crease rate 100 units/hr&n bsp; - aPTT 96-120:&nb sp; H old 30 minutes, decrease rate 150 units/hr&n bsp; - aPTT > 120: Hold 60 minutes, decrease rate 200 units/hr&n bsp; Check aPTT 6 hours after initiation , then Q6H after every change, aPTT Q12H once therapeuti c levels are reached.&n bsp;&n bsp; DO NOT ADJUST INITIAL BOLUS OR INITIAL INFUSION RATE.
[facility] heparin (1,000 unit/mL, 10 mL vial) for Rebolusing 07-02 02:41: 18 Yes 3000U FOR REBOLUSING , Starting on Fri07/02/23 at 204, Until Discontinu ed, Routine
Dosing based on aPPT testing parameters (refer to continuous heparin drip order).
[facility] nitroglycer in (NITROL) 2 % ointment 0.5 Inch 07-02 02:00: 00 07-02 02:00 :00 No .5[in_u s] 0.5 Inch, Transderma l (Apply To Skin), ONCE, 1 dose, On Fri07/02/23 at 2000, NAKUL [facility] fluorescein (FLUORESCIT E) 500 mg/5 mL (10 %) injection 5 mL 05-26 19:26: 00 05-26 19:26 :00 No [id number] 5mL 5 mL, Intravenou s, ONCE PRN, 1 dose, Starting on Fri05/26/23 at 1326, Until Fri05/26/23 at 1326, Routine [facility] tacrolimus (PROGRAF) 1 mg capsule 05-26 00:00: 00 Yes [id number] 5mg Take 5 capsules by mouth every 12 (twelve) hours. Take 5 tablets in the morning and 5 tablets in the evening Diagnosis: Z 94.0 generic permitted [facility] lisinopriL 5 mg tablet 05-26 00:00: 00 07-15 00:00 :00 No [id number] 10mg Take 2 tablets by mouth in the morning. [facility] bevacizumab (AVASTIN) injection 1.25 mg 05-02 16:46: 00 05-02 16:46 :00 No [id number] 1.25mg 1.25 mg, Intravitre al, ONCE PRN, 1 dose, Starting on Fri05/02/23 at 1046, Until Fri05/02/23 at 1046, Routine [facility] labetaloL 100 mg tablet 2022-04 00:00: 00 07-15 00:00 :00 No [id number] Take 300mg and 100mg together for a total of 400mg BID [facility] labetaloL 300 mg tablet 2022-04 00:00: 00 07-15 00:00 :00 No [id number] Take 300mg and 100mg together for a total of 400mg BID [facility] bevacizumab (AVASTIN) injection 1.25 mg 2022-04 17:27: 00 03-28 17:27 :00 No [id number] 1.25mg 1.25 mg, Intravitre al, ONCE PRN, 1 dose, Starting on Fri03/28/23 at 1127, Until Fri03/28/23 at 1127, Routine [facility] sucralfate 1 gram tablet 2022-04 00:00: 00 01-20 00:00 :00 No [id number] TAKE 1 TABLET BY MOUTH FOUR TIMES A DAY [facility] valGANciclo vir 450 mg tablet 2022-04 00:00: 00 01-04 00:00 :00 No 450mg Take 1 tablet by mouth in the morning. [facility] bevacizumab (AVASTIN) injection 1.25 mg 2022-04 16:26: 00 02-24 16:26 :00 No [id number] 1.25mg 1.25 mg, Intravitre al, ONCE PRN, 1 dose, Starting on Fri02/24/23 at 1126, Until Fri02/24/23 at 1126, Routine [facility] mirtazapine 7.5 mg tablet 2022-04 00:00: 00 01-20 00:00 :00 No [id number] 7.5mg Take 1 tablet by mouth at bedtime. [facility] nitroglycer in 0.4 mg sublingual tablet 2022-04 00:00: 00 07-15 00:00 :[id number] 1 TABLET UNDER THE TONGUE EVERY 5 MINUTES NEEDED FOR CHEST PAIN FOR 3 DOSES. IF NO RELIEF, CALL 911. [facility] lisinopriL 5 mg tablet 2022-04 00:00: 00 05-26 00:00 :00 No [id number] 5mg Take 1 tablet by mouth in the morning. [facility] cephALEXin (KEFLEX) 500 mg capsule 2022-04 00:00: 00 03-02 04:59 :00 No [id number] 500mg Take 1 capsule by mouth in the morning and 1 capsule at noon and 1 capsule in the evening. Do all this for 10 days. [facility] fluticasone propionate 50 mcg/actuati on nasal spray 01-19 00:00: 00 01-20 00:00 :00 No [id number] 2{spray } Use 2 Sprays in each nostril in the morning. [facility] omeprazole 40 mg capsule 01-13 00:00: 00 01-20 00:00 :00 No [id number] 40mg Take 1 capsule by mouth in the morning. [facility] ezetimibe 10 mg tablet 01-13 00:00: 00 01-20 00:00 :00 No [id number] 10mg Take 1 tablet by mouth in the morning. [facility] allopurinoL 100 mg tablet 01-13 00:00: 01-20 00:00 :00 No [id number] 100mg Take 1 tablet by mouth in the morning. [facility] fluticasone propionate 220 mcg/actuati on inhaler 01-13 00:00: 00 01-20 00:00 :00 No [id number] INHALE 1 PUFF BY MOUTH EVERY 12 (TWELVE) HOURS. RINSE MOUTH AFTER EACH USE. [facility] labetaloL 200 mg tablet 01-13 00:00: 00 04-27 00:00 :00 No [id number] 400mg Take 2 tablets by mouth every 12 (twelve) hours. [facility] fluticasone propionate 50 mcg/actuati on nasal spray 01-13 00:00: 00 01-19 00:00 :00 No [id number] 2{spray } Use 2 Sprays in each nostril in the morning. [facility] triamcinolo ne acetonide 0.1 % cream 12-23 00:00: 00 Yes [id number] Apply to area(s) 2 (two) times daily as needed for Dermatitis /Rash. [facility] dupilumab (DUPIXENT PEN) 300 mg/2 mL PnIj 12-23 00:00: 00 01-04 00:00 :00 No [id number] 300mg inject 1 Pen under the skin every 2 (two) weeks. [facility] fluticasone propionate 220 mcg/actuati on inhaler 11-11 00:00: 00 01-13 00:00 :00 No [id number] INHALE 1 PUFF BY MOUTH EVERY 12 (TWELVE) HOURS. RINSE MOUTH AFTER EACH USE. [facility] minoxidiL 10 mg tablet 09-20 00:00: 00 09-22 00:00 :00 No [id number] TAKE 0.5 TABLETS BY MOUTH 2 TIMES DAILY. [facility] labetaloL 200 mg tablet 09-03 00:00: 00 01-13 00:00 :00 No [id number] 400mg Take 2 tablets by mouth every 12 (twelve) hours. Please keep follow up for refills [facility] tacrolimus (PROGRAF) 1 mg capsule 08-26 00:00: 00 Yes [id number] Take 5 tablets in the morning and 4 tablets in the evening Diagnosis: Z 94.0 generic permitted [facility] mycophenola te 250 mg capsule - 00:00: 00 10-15 00:00 :00 No 500mg Take 2 capsules by mouth every 12 (twelve) hours. OR PER TRANSPLANT DOCTOR. Z 94.0 Kidney transplant Generic permitted Indication s: z94.0 kidney transplant [facility] predniSONE 5 mg tablet 08-26 00:00: 00 08-27 00:00 :00 No [id number] 5mg Take 1 tablet by mouth in the morning. [facility] tacrolimus (PROGRAF) 1 mg capsule 08-26 00:00: 00 05-26 00:00 :00 No [id number] Take 5 tablets in the morning and 4 tablets in the evening Diagnosis: Z 94.0 generic permitted [facility] mycophenola te 250 mg capsule - 00:00: 00 08-26 00:00 :00 No 500mg Take 2 capsules by mouth every 12 (twelve) hours. OR PER TRANSPLANT DOCTOR. Z 94.0 Kidney transplant Generic permitted Indication s: z94.0 kidney transplant [facility] fluticasone propionate 50 mcg/actuati on nasal spray -10 00:00: 00 01-13 00:00 :00 No [id number] 2{spray } Use 2 Sprays in each nostril in the morning. [facility] pravastatin 40 mg tablet 4-04 00:00: 00 08-27 00:00 :00 No [id number] 40mg Take 1 tablet by mouth at bedtime. [facility] nitroglycer in 0.4 mg sublingual tablet 4-04 00:00: 00 02-19 00:00 :[id number] 1 TABLET UNDER THE TONGUE EVERY 5 MINUTES NEEDED FOR CHEST PAIN FOR 3 DOSES. IF NO RELIEF, CALL 911. [facility] fluticasone propionate (FLOVENT HFA) 220 mcg/actuati on inhaler 07-30 00:00: 00 11-11 00:00 :00 No [id number] INHALE 1 PUFF EVERY 12 (TWELVE) HOURS. Rinse mouth after each use. [facility] fluticasone propionate 50 mcg/actuati on nasal spray 07-30 00:00: 08-05 00:00 :00 No [id number] 2{spray } Use 2 Sprays in each nostril in the morning. [facility] MINOXIDIL 10 mg tablet 07-25 00:00: 00 09-20 00:00 :00 No [id number] TAKE 0.5 TABLETS BY MOUTH 2 TIMES DAILY. [facility] fluocinonid e 0.05 % cream 07-23 00:00: 00 Yes [id number] Apply to area(s) 2 (two) times daily. [facility] dupilumab (DUPIXENT PEN) 300 mg/2 mL PnIj 07-23 00:00: 00 12-23 00:00 :00 No [id number] 300mg inject 1 Pen under the skin every 2 (two) weeks. [facility] tacrolimus (PROGRAF) 1 mg capsule 07-23 00:00: 00 08-26 00:00 :00 No [id number] Take 5 tablets in the morning and 4 tablets in the evening Diagnosis: Z 94.0 generic permitted [facility] TAMSULOSIN 0.4 mg 24 hr capsule 07-22 00:00: 00 08-27 00:00 :00 No [id number] .8mg TAKE 2 CAPSULES BY MOUTH AT BEDTIME [facility] MIRTAZAPINE 7.5 mg tablet 07-22 00:00: 00 02-19 00:00 :00 No [id number] TAKE 1 TABLET BY MOUTH EVERYDAY AT BEDTIME [facility] LISINOPRIL 5 mg tablet 2023-0 3-06 00:00: 00 02-19 00:00 :00 No TAKE 1 TABLET BY MOUTH EVERY DAY [facility] dupilumab (DUPIXENT PEN) 300 mg/2 mL PnIj 2-16 00:00: 00 07-23 00:00 :00 No [id number] 300mg inject 1 Pen under the skin every 2 (two) weeks. [facility] docusate (COLACE) 100 mg capsule 05-07 00:00: 00 01-20 00:00 :00 No [id number] 100mg Take 1 capsule by mouth once daily as needed for Constipati on. [facility] furosemide 20 mg tablet 05-07 00:00: 00 09-08 00:00 :00 No [id number] 20mg Take 1 tablet by mouth as needed (swelling) . [facility] allopurinoL 100 mg tablet 05-07 00:00: 00 01-13 00:00 :00 No [id number] 100mg Take 1 tablet by mouth in the morning. [facility] fluticasone propionate (FLOVENT HFA) 220 mcg/actuati on inhaler 05-07 00:00: 00 07-30 00:00 :00 No [id number] INHALE 1 PUFF EVERY 12 (TWELVE) HOURS. Rinse mouth after each use. [facility] nitroglycer in 0.4 mg sublingual tablet 05-07 00:00: 00 07-30 00:00 :[id number] 1 TABLET UNDER THE TONGUE EVERY 5 MINUTES NEEDED FOR CHEST PAIN FOR 3 DOSES. IF NO RELIEF, CALL 911. [facility] fluocinonid e 0.05 % cream 05-07 00:00: 00 07-23 00:00 :00 No [id number] Apply to area(s) 2 (two) times daily. [facility] furosemide 20 mg tablet 2021-04 2-29 00:00: 00 05-07 00:00 :00 No [id number] 20mg Take 1 tablet by mouth as needed (swelling) . [facility] iopamidol (ISOVUE 370-500 mL) injection 100 mL 2021-04 16:45: 00 04-15 15:46 :00 No [id number] 100mL 100 mL, Intravenou s, ONCE, 1 dose, On 04/15/22 at 1045, Routine [facility] tacrolimus (PROGRAF) 1 mg capsule 2021-04 00:00: 00 07-23 00:00 :00 No [id number] Take 5 tablets in the morning and 4 tablets in the evening Diagnosis: Z 94.0 generic permitted [facility] PRAVASTATIN 40 mg tablet 2021-04 00:00: 00 07-30 00:00 :00 No [id number] TAKE 1 TABLET BY MOUTH EVERYDAY AT BEDTIME [facility] OMEPRAZOLE 40 mg capsule 2021-04 00:00: 00 01-13 00:00 :00 No [id number] TAKE 1 CAPSULE BY MOUTH EVERY DAY [facility] MIRTAZAPINE 7.5 mg tablet 2021-04 00:00: 00 07-22 00:00 :00 No [id number] TAKE 1 TABLET BY MOUTH EVERYDAY AT BEDTIME [facility] clobetasoL 0.05 % cream 2021-04 00:00: 00 10-06 00:00 :00 No [id number] Apply to area(s) 2 (two) times daily. Only to itchy areas [facility] EZETIMIBE 10 mg tablet 2021-04 0-14 00:00: 00 01-13 00:00 :00 No [id number] TAKE 1 TABLET BY MOUTH EVERY DAY [facility] sucralfate 1 gram tablet 2021-04 0-10 00:00: 00 03-17 00:00 :00 No [id number] TAKE 1 TABLET BY MOUTH 4 TIMES A DAY [facility] allopurinoL 100 mg tablet 2021-04 0-10 00:00: 00 05-07 00:00 :00 No [id number] 100mg Take 1 tablet by mouth in the morning. [facility] nitroglycer in 0.4 mg sublingual tablet 2021-04 0-10 00:00: 00 05-07 00:00 :[id number] 1 TABLET UNDER THE TONGUE EVERY 5 MINUTES NEEDED FOR CHEST PAIN FOR 3 DOSES. IF NO RELIEF, CALL 911. [facility] triamcinolo ne 0.5 % cream 2021-04 0-10 00:00: 00 05-07 00:00 :00 No [id number] Apply to area(s) 3 (three) times daily. [facility] furosemide 20 mg tablet 2021-04 0-03 00:00: 00 04-25 00:00 :00 No [id number] 20mg Take 1 tablet by mouth as needed (swelling) . [facility] fluocinonid e 0.05 % cream 9- 00:00: 00 05-07 00:00 :00 No [id number] Apply to area(s) 2 (two) times daily. [facility] labetaloL 200 mg tablet 8- 00:00: 00 09-03 00:00 :00 No [id number] 400mg Take 2 tablets by mouth every 12 (twelve) hours. [facility] sofosbuvir- velpatasvir (EPCLUSA) 400-100 mg 6- 00:00: 00 10-21 00:00 :00 No [id number] 1{tbl} Take 1 tablet by mouth daily. [facility] pravastatin 40 mg tablet 6-07 00:00: 00 03-28 00:00 :00 No [id number] 40mg Take 1 tablet by mouth at bedtime. [facility] allopurinoL 100 mg tablet 6-07 00:00: 00 02-04 00:00 :00 No [id number] 100mg Take 1 tablet by mouth daily. [facility] tamsulosin (FLOMAX) 0.4 mg 24 hr capsule 09-18 00:00: 07-22 00:00 :00 No [id number] .8mg Take 2 capsules by mouth at bedtime. [facility] fluticasone propionate (FLOVENT HFA) 220 mcg/actuati on inhaler 09-18 00:00: 00 05-07 00:00 :00 No [id number] INHALE 1 PUFF EVERY 12 (TWELVE) HOURS. Rinse mouth after each use. [facility] mirtazapine 7.5 mg tablet 09-18 00:00: 00 03-23 00:00 :00 No [id number] 7.5mg Take 1 tablet by mouth at bedtime. [facility] triamcinolo ne 0.5 % cream 09-18 00:00: 00 02-04 00:00 :00 No [id number] Apply to area(s) 3 (three) times daily. [facility] minoxidiL 10 mg tablet 09-06 00:00: 00 07-25 00:00 :00 No [id number] 5mg Take 0.5 tablets by mouth 2 (two) times daily. [facility] sucralfate 1 gram tablet 09-06 00:00: 00 02-04 00:00 :00 No [id number] TAKE 1 TABLET BY MOUTH 4 TIMES A DAY [facility] mycophenola te 250 mg capsule 07-20 00:00: 00 08-06 00:00 :00 No 500mg Take 2 capsules by mouth every 12 (twelve) hours. OR PER TRANSPLANT DOCTOR. Z 94.0 Kidney transplant Generic permitted Indication s: z94.0 kidney transplant [facility] tacrolimus (PROGRAF) 1 mg capsule 07-20 00:00: 00 04-15 00:00 :00 No [id number] 4mg Take 4 capsules by mouth every 12 (twelve) hours. Diagnosis: Z 94.0 generic permitted [facility] lisinopriL 5 mg tablet 07-11 00:00: 00 07-01 00:00 :00 No 5mg Take 1 tablet by mouth daily. [facility] predniSONE 5 mg tablet 2-10 00:00: 00 08-26 00:00 :00 No [id number] 5mg Take 1 tablet by mouth daily. [facility] NITROGLYCER IN 0.4 mg sublingual tablet 2020-04 2-21 00:00: 00 02-04 00:00 :[id number] 1 TABLET UNDER THE TONGUE EVERY 5 MINUTES NEEDED FOR CHEST PAIN FOR 3 DOSES. IF NO RELIEF, CALL 911. [facility] furosemide 20 mg tablet 2020-04 2-20 00:00: 00 01-28 00:00 :00 No [id number] 20mg Take 1 tablet by mouth as needed (swelling) . [facility] OMEPRAZOLE 40 mg capsule 2020-04 1-19 00:00: 00 03-25 00:00 :00 No [id number] TAKE 1 CAPSULE BY MOUTH EVERY DAY [facility] ezetimibe 10 mg tablet 17 00:00: 00 02-08 00:00 :00 No [id number] 10mg Take 1 tablet by mouth daily. [facility] magnesium oxide (MAG-OX 400) 400 mg tablet 12-13 00:00: 00 07-17 00:00 :00 No 400mg Take 1 Tab by mouth 2 (two) times daily. [facility] aspirin 325 mg tablet 12-19 00:00: 00 07-15 00:00 :00 No 325mg Take 1 Tab by mouth daily. [facility] Immunizations Ordered Immunization Name Filled Immunization Name Date Status Comments Source TDAP 2024-01-21 00:00:00 Completed SARS-COV-2 COVID 19 BRITTANEY SUCROSE VACCINE 12+, , 0.3 ML (30 MCG), IM PFIZER (ROCHA TOP) 2024-01-21 00:00:00 Completed TDAP 2024-01-21 00:00:00 Completed SARS-COV-2 COVID 19 BRITTANEY SUCROSE VACCINE 12+, , 0.3 ML (30 MCG), IM PFIZER (ROCHA TOP) 2024-01-21 00:00:00 Completed TDAP 2024-01-21 00:00:00 Completed SARS-COV-2 COVID 19 BRITTANEY SUCROSE VACCINE 12+, , 0.3 ML (30 MCG), IM PFIZER (ROCHA TOP) 2024-01-21 00:00:00 Completed TDAP 2024-01-21 00:00:00 Completed SARS-COV-2 COVID 19 BRITTANEY SUCROSE VACCINE 12+, , 0.3 ML (30 MCG), IM PFIZER (ROCHA TOP) 2024-01-21 00:00:00 Completed Influenza, adjuvanted, trivalent, PF (FLUAD) 2024-01-13 00:00:00 Completed [facility] Influenza, adjuvanted, trivalent, PF (FLUAD) 2024-01-13 00:00:00 Completed [facility] Influenza, adjuvanted, trivalent, PF (FLUAD) 2024-01-13 00:00:00 Completed [facility] Influenza, adjuvanted, trivalent, PF (FLUAD) 2024-01-13 00:00:00 Completed [facility] Influenza Virus Vaccine 2023-02-12 00:00:00 Completed [facility] Influenza Virus Vaccine 2023-02-12 00:00:00 Completed Influenza Virus Vaccine 2023-02-12 00:00:00 Completed Influenza Virus Vaccine 2023-02-12 00:00:00 Completed [facility] Pneumococcal 20 Conjugate, PCV20 (Prevnar 20) 2022-10-21 00:00:00 Completed [facility] Pneumococcal 20 Conjugate, PCV20 (Prevnar 20) 2022-10-21 00:00:00 Completed [facility] Pneumococcal 20 Conjugate, PCV20 (Prevnar 20) 2022-10-21 00:00:00 Completed [facility] Pneumococcal 20 Conjugate, PCV20 (Prevnar 20) 2022-10-21 00:00:00 Completed [facility] Pneumococcal 20 Conjugate, PCV20 (Prevnar 20) 2022-10-21 00:00:00 Completed [facility] Pneumococcal 20 Conjugate, PCV20 (Prevnar 20) 2022-10-21 00:00:00 Completed [facility] Pneumococcal 20 Conjugate, PCV20 (Prevnar 20) 2022-10-21 00:00:00 Completed [facility] Pneumococcal 20 Conjugate, PCV20 (Prevnar 20) 2022-10-21 00:00:00 Completed [facility] Pneumococcal 20 Conjugate, PCV20 (Prevnar 20) 2022-10-21 00:00:00 Completed [facility] Pneumococcal 20 Conjugate, PCV20 (Prevnar 20) 2022-10-21 00:00:00 Completed [facility] Pneumococcal 20 Conjugate, PCV20 (Prevnar 20) 2022-10-21 00:00:00 Completed [facility] Pneumococcal 20 Conjugate, PCV20 (Prevnar 20) 2022-10-21 00:00:00 Completed [facility] Pneumococcal 20 Conjugate, PCV20 (Prevnar 20) 2022-10-21 00:00:00 Completed [facility] Pneumococcal 20 Conjugate, PCV20 (Prevnar 20) 2022-10-21 00:00:00 Completed [facility] Pneumococcal 20 Conjugate, PCV20 (Prevnar 20) 2022-10-21 00:00:00 Completed [facility] Pneumococcal 20 Conjugate, PCV20 (Prevnar 20) 2022-10-21 00:00:00 Completed [facility] Influenza Virus Vaccine,quad Im,preserve Free 652022-04-01 00:00:00 Completed [facility] Influenza Virus Vaccine,quad Im,preserve Free 652022-04-01 00:00:00 Completed [facility] Influenza Virus Vaccine,quad Im,preserve Free 652022-04-01 00:00:00 Completed [facility] Influenza Virus Vaccine,quad Im,preserve Free 652022-04-01 00:00:00 Completed [facility] Influenza Virus Vaccine,quad Im,preserve Free 652022-04-01 00:00:00 Completed [facility] Influenza Virus Vaccine,quad Im,preserve Free 652022-04-01 00:00:00 Completed [facility] Influenza Virus Vaccine,quad Im,preserve Free 652022-04-01 00:00:00 Completed [facility] Influenza Virus Vaccine,quad Im,preserve Free 652022-04-01 00:00:00 Completed [facility] Influenza Virus Vaccine,quad Im,preserve Free 2022-04-01 00:00:00 Completed [facility] Influenza Virus Vaccine,quad Im,preserve Free 652022-04-01 00:00:00 Completed [facility] Influenza Virus Vaccine,quad Im,preserve Free 652022-04-01 00:00:00 Completed [facility] Influenza Virus Vaccine,quad Im,preserve Free 652022-04-01 00:00:00 Completed [facility] Influenza Virus Vaccine,quad Im,preserve Free 652022-04-01 00:00:00 Completed [facility] Influenza Virus Vaccine,quad Im,preserve Free 652022-04-01 00:00:00 Completed [facility] Influenza Virus Vaccine,quad Im,preserve Free 652022-04-01 00:00:00 Completed [facility] Influenza Virus Vaccine,quad Im,preserve Free 2022-04-01 00:00:00 Completed [facility] Influenza Virus Vaccine,quad Im,preserve Free 2022-04-01 00:00:00 Completed [facility] Influenza Virus Vaccine,quad Im,preserve Free 2022-04-01 00:00:00 Completed [facility] Influenza Virus Vaccine,quad Im,preserve Free 2022-04-01 00:00:00 Completed [facility] Influenza Virus Vaccine,quad Im,preserve Free 2022-04-01 00:00:00 Completed [facility] Influenza Virus Vaccine,quad Im,preserve Free 2022-04-01 00:00:00 Completed [facility] Influenza Virus Vaccine,quad Im,preserve Free 2022-04-01 00:00:00 Completed [facility] Influenza Virus Vaccine,quad Im,preserve Free 2022-04-01 00:00:00 Completed [facility] Influenza Virus Vaccine,quad Im,preserve Free 652022-04-01 00:00:00 Completed [facility] Influenza Virus Vaccine,quad Im,preserve Free 652022-04-01 00:00:00 Completed [facility] Influenza Virus Vaccine,quad Im,preserve Free 652022-04-01 00:00:00 Completed [facility] Influenza Virus Vaccine,quad Im,preserve Free 2022-04-01 00:00:00 Completed [facility] Influenza Virus Vaccine,quad Im,preserve Free 652022-04-01 00:00:00 Completed [facility] Influenza Virus Vaccine,quad Im,preserve Free 652022-04-01 00:00:00 Completed [facility] Influenza Virus Vaccine,quad Im,preserve Free 652022-04-01 00:00:00 Completed [facility] Influenza Virus Vaccine,quad Im,preserve Free 652022-04-01 00:00:00 Completed [facility] Influenza Virus Vaccine,quad Im,preserve Free 652022-04-01 00:00:00 Completed [facility] Influenza Virus Vaccine,quad Im,preserve Free 652022-04-01 00:00:00 Completed [facility] Influenza Virus Vaccine,quad Im,preserve Free 2022-04-01 00:00:00 Completed [facility] Influenza Virus Vaccine,quad Im,preserve Free 2022-04-01 00:00:00 Completed [facility] Influenza Virus Vaccine,quad Im,preserve Free 2022-04-01 00:00:00 Completed [facility] Influenza Virus Vaccine,quad Im,preserve Free 2022-04-01 00:00:00 Completed [facility] Influenza Virus Vaccine,quad Im,preserve Free 2022-04-01 00:00:00 Completed [facility] Influenza Virus Vaccine,quad Im,preserve Free 2022-04-01 00:00:00 Completed [facility] Influenza Virus Vaccine,quad Im,preserve Free 652022-04-01 00:00:00 Completed [facility] Influenza Virus Vaccine,quad Im,preserve Free 2022-04-01 00:00:00 Completed [facility] Influenza Virus Vaccine,quad Im,preserve Free 652022-04-01 00:00:00 Completed [facility] Influenza Virus Vaccine,quad Im,preserve Free 652022-04-01 00:00:00 Completed [facility] Influenza Virus Vaccine,quad Im,preserve Free 65+ 2022-04-01 00:00:00 Completed [facility] Influenza Virus Vaccine,quad Im,preserve Free 65+ 2022-04-01 00:00:00 Completed [facility] Influenza Virus Vaccine,quad Im,preserve Free 65+ 2022-04-01 00:00:00 Completed [facility] Influenza Virus Vaccine,quad Im,preserve Free 65+ 2022-04-01 00:00:00 Completed [facility] Influenza Virus Vaccine,quad Im,preserve Free 65+ 2022-04-01 00:00:00 Completed [facility] Influenza Virus Vaccine,quad Im,preserve Free 65+ 2022-04-01 00:00:00 Completed [facility] Influenza Virus Vaccine,quad Im,preserve Free 65+ 2022-04-01 00:00:00 Completed [facility] Influenza Virus Vaccine,quad Im,preserve Free 65+ 2022-04-01 00:00:00 Completed [facility] Influenza Virus Vaccine,quad Im,preserve Free 65+ 2022-04-01 00:00:00 Completed [facility] Influenza Virus Vaccine,quad Im,preserve Free 65+ 2022-04-01 00:00:00 Completed [facility] Influenza Virus Vaccine,quad Im,preserve Free 65+ 2022-04-01 00:00:00 Completed [facility] Influenza Virus Vaccine,quad Im,preserve Free 65+ (FLUAD) 2022-04-01 00:00:00 Completed [facility] Influenza Virus Vaccine,quad Im,preserve Free 65+ (FLUAD) 2022-04-01 00:00:00 Completed [facility] Influenza Virus Vaccine,quad Im,preserve Free 65+ (FLUAD) 2022-04-01 00:00:00 Completed [facility] Influenza Virus Vaccine,quad Im,preserve Free 65+ (FLUAD) 2022-04-01 00:00:00 Completed [facility] Influenza Virus Vaccine,quad Im,preserve Free 65+ (FLUAD) 2022-04-01 00:00:00 Completed [facility] Influenza Virus Vaccine,quad Im,preserve Free 65+ (FLUAD) 2022-04-01 00:00:00 Completed [facility] Influenza Virus Vaccine,quad Im,preserve Free 65+ (FLUAD) 2022-04-01 00:00:00 Completed [facility] Influenza Virus Vaccine,quad Im,preserve Free 65+ (FLUAD) 2022-04-01 00:00:00 Completed [facility] SARS-COV-2 COVID-19 VACCINE 18 YRS+, BIVALENT 0.5ML, IM, (MODERNA BOOSTER) 2022-02-04 00:00:00 Completed [facility] SARS-COV-2 COVID-19 VACCINE 18 YRS+, BIVALENT 0.5ML, IM, (MODERNA BOOSTER) 2022-02-04 00:00:00 Completed [facility] SARS-COV-2 COVID-19 VACCINE 18 YRS+, BIVALENT 0.5ML, IM, (MODERNA BOOSTER) 2022-02-04 00:00:00 Completed [facility] SARS-COV-2 COVID-19 VACCINE 12 YRS+, BIVALENT 0.5ML, IM, (MODERNA BOOSTER) 2022-02-04 00:00:00 Completed [facility] SARS-COV-2 COVID-19 VACCINE 12 YRS+, BIVALENT 0.5ML, IM, (MODERNA BOOSTER) 2022-02-04 00:00:00 Completed [facility] SARS-COV-2 COVID-19 VACCINE 12 YRS+, BIVALENT 0.5ML, IM, (MODERNA BOOSTER) 2022-02-04 00:00:00 Completed [facility] SARS-COV-2 COVID-19 VACCINE 12 YRS+, BIVALENT 0.5ML, IM, (MODERNA BOOSTER) 2022-02-04 00:00:00 Completed [facility] SARS-COV-2 COVID-19 VACCINE 12 YRS+, BIVALENT 0.5ML, IM, (MODERNA BOOSTER) 2022-02-04 00:00:00 Completed [facility] SARS-COV-2 COVID-19 VACCINE 12 YRS+, BIVALENT 0.5ML, IM, (MODERNA BOOSTER) 2022-02-04 00:00:00 Completed [facility] SARS-COV-2 COVID-19 VACCINE 12 YRS+, BIVALENT 0.5ML, IM, (MODERNA BOOSTER) 2022-02-04 00:00:00 Completed [facility] SARS-COV-2 COVID-19 VACCINE 12 YRS+, BIVALENT 0.5ML, IM, (MODERNA BOOSTER) 2022-02-04 00:00:00 Completed [facility] SARS-COV-2 COVID-19 VACCINE 12 YRS+, BIVALENT 0.5ML, IM, (MODERNA BOOSTER) 2022-02-04 00:00:00 Completed [facility] SARS-COV-2 COVID-19 VACCINE 12 YRS+, BIVALENT 0.5ML, IM, (MODERNA BOOSTER) 2022-02-04 00:00:00 Completed [facility] SARS-COV-2 COVID-19 VACCINE 12 YRS+, BIVALENT 0.5ML, IM, (MODERNA BOOSTER) 2022-02-04 00:00:00 Completed [facility] SARS-COV-2 COVID-19 VACCINE 12 YRS+, BIVALENT 0.5ML, IM, (MODERNA BOOSTER) 2022-02-04 00:00:00 Completed [facility] SARS-COV-2 COVID-19 VACCINE 12 YRS+, BIVALENT 0.5ML, IM, (MODERNA BOOSTER) 2022-02-04 00:00:00 Completed [facility] SARS-COV-2 COVID-19 VACCINE 12 YRS+, BIVALENT 0.5ML, IM, (MODERNA BOOSTER) 2022-02-04 00:00:00 Completed [facility] SARS-COV-2 COVID-19 VACCINE 12 YRS+, BIVALENT 0.5ML, IM, (MODERNA BOOSTER) 2022-02-04 00:00:00 Completed [facility] SARS-COV-2 COVID-19 VACCINE 12 YRS+, BIVALENT 0.5ML, IM, (MODERNA BOOSTER) 2022-02-04 00:00:00 Completed [facility] SARS-COV-2 COVID-19 VACCINE 12 YRS+, BIVALENT 0.5ML, IM, (MODERNA BOOSTER) 2022-02-04 00:00:00 Completed [facility] SARS-COV-2 COVID-19 VACCINE 12 YRS+, BIVALENT 0.5ML, IM, (MODERNA BOOSTER) 2022-02-04 00:00:00 Completed [facility] SARS-COV-2 COVID-19 VACCINE 12 YRS+, BIVALENT 0.5ML, IM, (MODERNA BOOSTER) 2022-02-04 00:00:00 Completed [facility] SARS-COV-2 COVID-19 VACCINE 12 YRS+, BIVALENT 0.5ML, IM, (MODERNA BOOSTER) 2022-02-04 00:00:00 Completed [facility] SARS-COV-2 COVID-19 VACCINE 12 YRS+, BIVALENT 0.5ML, IM, (MODERNA BOOSTER) 2022-02-04 00:00:00 Completed [facility] SARS-COV-2 COVID-19 VACCINE 12 YRS+, BIVALENT 0.5ML, IM, (MODERNA BOOSTER) 2022-02-04 00:00:00 Completed [facility] SARS-COV-2 COVID-19 VACCINE 12 YRS+, BIVALENT 0.5ML, IM, (MODERNA BOOSTER) 2022-02-04 00:00:00 Completed [facility] SARS-COV-2 COVID-19 VACCINE 12 YRS+, BIVALENT 0.5ML, IM, (MODERNA BOOSTER) 2022-02-04 00:00:00 Completed [facility] SARS-COV-2 COVID-19 VACCINE 12 YRS+, BIVALENT 0.5ML, IM, (MODERNA BOOSTER) 2022-02-04 00:00:00 Completed [facility] SARS-COV-2 COVID-19 VACCINE 12 YRS+, BIVALENT 0.5ML, IM, (MODERNA BOOSTER) 2022-02-04 00:00:00 Completed [facility] SARS-COV-2 COVID-19 VACCINE 12 YRS+, BIVALENT 0.5ML, IM, (MODERNA BOOSTER) 2022-02-04 00:00:00 Completed [facility] SARS-COV-2 COVID-19 VACCINE 12 YRS+, BIVALENT 0.5ML, IM, (MODERNA BOOSTER) 2022-02-04 00:00:00 Completed [facility] SARS-COV-2 COVID-19 VACCINE 12 YRS+, BIVALENT 0.5ML, IM, (MODERNA BOOSTER) 2022-02-04 00:00:00 Completed [facility] SARS-COV-2 COVID-19 VACCINE 12 YRS+, BIVALENT 0.5ML, IM, (MODERNA BOOSTER) 2022-02-04 00:00:00 Completed [facility] SARS-COV-2 COVID-19 VACCINE 12 YRS+, BIVALENT 0.5ML, IM, (MODERNA BOOSTER) 2022-02-04 00:00:00 Completed [facility] SARS-COV-2 COVID-19 VACCINE 12 YRS+, BIVALENT 0.5ML, IM, (MODERNA BOOSTER) 2022-02-04 00:00:00 Completed [facility] SARS-COV-2 COVID-19 VACCINE 12 YRS+, BIVALENT 0.5ML, IM, (MODERNA BOOSTER) 2022-02-04 00:00:00 Completed [facility] SARS-COV-2 COVID-19 VACCINE 12 YRS+, BIVALENT 0.5ML, IM, (MODERNA BOOSTER) 2022-02-04 00:00:00 Completed [facility] SARS-COV-2 COVID-19 VACCINE 12 YRS+, BIVALENT 0.5ML, IM, (MODERNA BOOSTER) 2022-02-04 00:00:00 Completed [facility] SARS-COV-2 COVID-19 VACCINE 12 YRS+, BIVALENT 0.5ML, IM, (MODERNA BOOSTER) 2022-02-04 00:00:00 Completed [facility] SARS-COV-2 COVID-19 VACCINE 12 YRS+, BIVALENT 0.5ML, IM, (MODERNA BOOSTER) 2022-02-04 00:00:00 Completed [facility] SARS-COV-2 COVID-19 VACCINE 12 YRS+, BIVALENT 0.5ML, IM, (MODERNA BOOSTER) 2022-02-04 00:00:00 Completed [facility] SARS-COV-2 COVID-19 VACCINE 12 YRS+, BIVALENT 0.5ML, IM, (MODERNA BOOSTER) 2022-02-04 00:00:00 Completed [facility] SARS-COV-2 COVID-19 VACCINE 12 YRS+, BIVALENT 0.5ML, IM, (MODERNA BOOSTER) 2022-02-04 00:00:00 Completed [facility] SARS-COV-2 COVID-19 VACCINE 12 YRS+, BIVALENT 0.5ML, IM, (MODERNA BOOSTER) 2022-02-04 00:00:00 Completed [facility] SARS-COV-2 COVID-19 VACCINE 12 YRS+, BIVALENT 0.5ML, IM, (MODERNA BOOSTER) 2022-02-04 00:00:00 Completed [facility] SARS-COV-2 COVID-19 VACCINE 12 YRS+, BIVALENT 0.5ML, IM, (MODERNA BOOSTER) 2022-02-04 00:00:00 Completed [facility] SARS-COV-2 COVID-19 VACCINE 12 YRS+, BIVALENT 0.5ML, IM, (MODERNA BOOSTER) 2022-02-04 00:00:00 Completed [facility] SARS-COV-2 COVID-19 VACCINE 12 YRS+, BIVALENT 0.5ML, IM, (MODERNA) 2022-02-04 00:00:00 Completed [facility] SARS-COV-2 COVID-19 VACCINE 12 YRS+, BIVALENT 0.5ML, IM, (MODERNA) 2022-02-04 00:00:00 Completed [facility] SARS-COV-2 COVID-19 VACCINE 12 YRS+, BIVALENT 0.5ML, IM, (MODERNA) 2022-02-04 00:00:00 Completed [facility] SARS-COV-2 COVID-19 VACCINE 12 YRS+, BIVALENT 0.5ML, IM, (MODERNA-BLUE TOP) 2022-02-04 00:00:00 Completed [facility] SARS-COV-2 COVID-19 VACCINE 12 YRS+, BIVALENT 0.5ML, IM, (MODERNA-BLUE TOP) 2022-02-04 00:00:00 Completed [facility] SARS-COV-2 COVID-19 VACCINE 12 YRS+, BIVALENT 0.5ML, IM, (MODERNA-BLUE TOP) 2022-02-04 00:00:00 Completed [facility] SARS-COV-2 COVID-19 VACCINE 12 YRS+, BIVALENT 0.5ML, IM, (MODERNA-BLUE TOP) 2022-02-04 00:00:00 Completed [facility] SARS-COV-2 COVID-19 VACCINE 12 YRS+, BIVALENT 0.5ML, IM, (MODERNA-BLUE TOP) 2022-02-04 00:00:00 Completed [facility] SARS-COV-2 COVID-19 VACCINE 12 YRS+, BIVALENT 0.5ML, IM, (MODERNA-BLUE TOP) 2022-02-04 00:00:00 Completed [facility] SARS-COV-2 COVID-19 VACCINE 12 YRS+, BIVALENT 0.5ML, IM, (MODERNA-BLUE TOP) 2022-02-04 00:00:00 Completed [facility] SARS-COV-2 COVID-19 VACCINE 12 YRS+, BIVALENT 0.5ML, IM, (MODERNA-BLUE TOP) 2022-02-04 00:00:00 Completed [facility] SARS-COV-2 COVID-19 VACCINE 12 YRS+, BIVALENT 0.5ML, IM, (MODERNA-BLUE TOP) 2022-02-04 00:00:00 Completed [facility] SARS-COV-2 COVID-19 VACCINE 12 YRS+, BIVALENT 0.5ML, IM, (MODERNA-BLUE TOP) 2022-02-04 00:00:00 Completed [facility] SARS-COV-2 COVID-19 VACCINE 12 YRS+, BIVALENT 0.5ML, IM, (MODERNA-BLUE TOP) 2022-02-04 00:00:00 [facility] [facility] SARS-COV-2 COVID-19 VACCINE 12 YRS+, BIVALENT 0.5ML, IM, (MODERNA-BLUE TOP) 2022-02-04 00:00:00 Completed [facility] SARS-COV-2 COVID-19 VACCINE 12 YRS+, BIVALENT 0.5ML, IM, (MODERNA-BLUE TOP) 2022-02-04 00:00:00 Completed [facility] SARS-COV-2 COVID-19 VACCINE 12 YRS+, BIVALENT 0.5ML, IM, (MODERNA-BLUE TOP) 2022-02-04 00:00:00 Completed [facility] SARS-COV-2 COVID-19 VACCINE 12 YRS+, BIVALENT 0.5ML, IM, (MODERNA-BLUE TOP) 2022-02-04 00:00:00 Completed [facility] SARS-COV-2 COVID-19 VACCINE 12 YRS+, BIVALENT 0.5ML, IM, (MODERNA-BLUE TOP) 2022-02-04 00:00:00 Completed [facility] SARS-COV-2 COVID-19 VACCINE 12 YRS+, BIVALENT 0.5ML, IM, (MODERNA-BLUE TOP) 2022-02-04 00:00:00 Completed [facility] SARS-COV-2 COVID-19 VACCINE 12 YRS+, BIVALENT 0.5ML, IM, (MODERNA-BLUE TOP) 2022-02-04 00:00:00 Completed [facility] SARS-COV-2 COVID-19 VACCINE 12 YRS+, BIVALENT 0.5ML, IM, (MODERNA-BLUE TOP) 2022-02-04 00:00:00 Completed [facility] SARS-COV-2 COVID-19 VACCINE 12 YRS+, BIVALENT 0.5ML, IM, (MODERNA-BLUE TOP) 2022-02-04 00:00:00 Completed [facility] SARS-COV-2 COVID-19 VACCINE 12 YRS+, BIVALENT 0.5ML, IM, (MODERNA-BLUE TOP) 2022-02-04 00:00:00 Completed SARS-COV-2 COVID-19 VACCINE 12 YRS+, BIVALENT 0.5ML, IM, (MODERNA-BLUE TOP) 2022-02-04 00:00:00 Completed SARS-COV-2 COVID-19 VACCINE 12 YRS+, BIVALENT 0.5ML, IM, (MODERNA-BLUE TOP) 2022-02-04 00:00:00 Completed SARS-COV-2 COVID-19 VACCINE 12 YRS+, BIVALENT 0.5ML, IM, (MODERNA-BLUE TOP) 2022-02-04 00:00:00 Completed SARS-COV-2 COVID-19 MODERNA 0.25ML BOOSTER VACCINE 2021-09-03 00:00:00 Completed [facility] SARS-COV-2 COVID-19 MODERNA 0.25ML BOOSTER VACCINE 2021-09-03 00:00:00 Completed [facility] SARS-COV-2 COVID-19 MODERNA 0.25ML BOOSTER VACCINE 2021-09-03 00:00:00 Completed [facility] SARS-COV-2 COVID-19 MODERNA 0.25ML BOOSTER VACCINE 2021-09-03 00:00:00 Completed [facility] SARS-COV-2 COVID-19 MODERNA 0.25ML BOOSTER VACCINE 2021-09-03 00:00:00 Completed [facility] SARS-COV-2 COVID-19 MODERNA 0.25ML BOOSTER VACCINE 2021-09-03 00:00:00 Completed [facility] SARS-COV-2 COVID-19 MODERNA 0.25ML BOOSTER VACCINE 2021-09-03 00:00:00 Completed [facility] SARS-COV-2 COVID-19 MODERNA 0.25ML BOOSTER VACCINE 2021-09-03 00:00:00 Completed [facility] SARS-COV-2 COVID-19 MODERNA 0.25ML BOOSTER VACCINE 2021-09-03 00:00:00 Completed [facility] SARS-COV-2 COVID-19 MODERNA 0.25ML BOOSTER VACCINE 2021-09-03 00:00:00 Completed [facility] SARS-COV-2 COVID-19 MODERNA 0.25ML BOOSTER VACCINE 2021-09-03 00:00:00 Completed [facility] SARS-COV-2 COVID-19 MODERNA 0.25ML BOOSTER VACCINE 2021-09-03 00:00:00 Completed [facility] SARS-COV-2 COVID-19 MODERNA 0.25ML BOOSTER VACCINE 2021-09-03 00:00:00 Completed [facility] SARS-COV-2 COVID-19 MODERNA 0.25ML BOOSTER VACCINE 2021-09-03 00:00:00 Completed [facility] SARS-COV-2 COVID-19 MODERNA 0.25ML BOOSTER VACCINE 2021-09-03 00:00:00 Completed [facility] SARS-COV-2 COVID-19 MODERNA 0.25ML BOOSTER VACCINE 2021-09-03 00:00:00 Completed [facility] SARS-COV-2 COVID-19 MODERNA 0.25ML BOOSTER VACCINE 2021-09-03 00:00:00 Completed [facility] SARS-COV-2 COVID-19 MODERNA 0.25ML BOOSTER VACCINE 2021-09-03 00:00:00 Completed [facility] SARS-COV-2 COVID-19 MODERNA 0.25ML BOOSTER VACCINE 2021-09-03 00:00:00 Completed [facility] SARS-COV-2 COVID-19 MODERNA 0.25ML BOOSTER VACCINE 2021-09-03 00:00:00 Completed [facility] SARS-COV-2 COVID-19 MODERNA 0.25ML BOOSTER VACCINE 2021-09-03 00:00:00 Completed [facility] SARS-COV-2 COVID-19 MODERNA 0.25ML BOOSTER VACCINE 2021-09-03 00:00:00 Completed [facility] SARS-COV-2 COVID-19 MODERNA 0.25ML BOOSTER VACCINE 2021-09-03 00:00:00 Completed [facility] SARS-COV-2 COVID-19 MODERNA 0.25ML BOOSTER VACCINE 2021-09-03 00:00:00 Completed [facility] SARS-COV-2 COVID-19 MODERNA 0.25ML BOOSTER VACCINE 2021-09-03 00:00:00 Completed [facility] SARS-COV-2 COVID-19 MODERNA 0.25ML BOOSTER VACCINE 2021-09-03 00:00:00 Completed [facility] SARS-COV-2 COVID-19 MODERNA 0.25ML BOOSTER VACCINE 2021-09-03 00:00:00 Completed [facility] SARS-COV-2 COVID-19 MODERNA 0.25ML BOOSTER VACCINE 2021-09-03 00:00:00 Completed [facility] SARS-COV-2 COVID-19 MODERNA 0.25ML BOOSTER VACCINE 2021-09-03 00:00:00 Completed [facility] SARS-COV-2 COVID-19 MODERNA 0.25ML BOOSTER VACCINE 2021-09-03 00:00:00 Completed [facility] SARS-COV-2 COVID-19 MODERNA 0.25ML BOOSTER VACCINE 2021-09-03 00:00:00 Completed [facility] SARS-COV-2 COVID-19 MODERNA 0.25ML BOOSTER VACCINE 2021-09-03 00:00:00 Completed [facility] SARS-COV-2 COVID-19 MODERNA 0.25ML BOOSTER VACCINE 2021-09-03 00:00:00 Completed [facility] SARS-COV-2 COVID-19 MODERNA 0.25ML BOOSTER VACCINE 2021-09-03 00:00:00 Completed [facility] SARS-COV-2 COVID-19 MODERNA 0.25ML BOOSTER VACCINE 2021-09-03 00:00:00 Completed [facility] SARS-COV-2 COVID-19 MODERNA 0.25ML BOOSTER VACCINE 2021-09-03 00:00:00 Completed [facility] SARS-COV-2 COVID-19 MODERNA 0.25ML BOOSTER VACCINE 2021-09-03 00:00:00 Completed [facility] SARS-COV-2 COVID-19 MODERNA 0.25ML BOOSTER VACCINE 2021-09-03 00:00:00 Completed [facility] SARS-COV-2 COVID-19 MODERNA 0.25ML BOOSTER VACCINE 2021-09-03 00:00:00 Completed [facility] SARS-COV-2 COVID-19 MODERNA 0.25ML BOOSTER VACCINE 2021-09-03 00:00:00 Completed [facility] SARS-COV-2 COVID-19 MODERNA 0.25ML BOOSTER VACCINE 2021-09-03 00:00:00 Completed [facility] SARS-COV-2 COVID-19 MODERNA 0.25ML BOOSTER VACCINE 2021-09-03 00:00:00 Completed [facility] SARS-COV-2 COVID-19 MODERNA 0.25ML BOOSTER VACCINE 2021-09-03 00:00:00 Completed [facility] SARS-COV-2 COVID-19 MODERNA 0.25ML BOOSTER VACCINE 2021-09-03 00:00:00 Completed [facility] SARS-COV-2 COVID-19 MODERNA 0.25ML BOOSTER VACCINE 2021-09-03 00:00:00 Completed [facility] SARS-COV-2 COVID-19 MODERNA 0.25ML BOOSTER VACCINE 2021-09-03 00:00:00 Completed [facility] SARS-COV-2 COVID-19 MODERNA 0.25ML BOOSTER VACCINE 2021-09-03 00:00:00 Completed [facility] SARS-COV-2 COVID-19 MODERNA 0.25ML BOOSTER VACCINE 2021-09-03 00:00:00 Completed [facility] SARS-COV-2 COVID-19 MODERNA 0.25ML BOOSTER VACCINE 2021-09-03 00:00:00 Completed [facility] SARS-COV-2 COVID-19 MODERNA 0.25ML BOOSTER VACCINE 2021-09-03 00:00:00 Completed [facility] SARS-COV-2 COVID-19 MODERNA 0.25ML BOOSTER VACCINE 2021-09-03 00:00:00 Completed [facility] SARS-COV-2 COVID-19 MODERNA 0.25ML BOOSTER VACCINE 2021-09-03 00:00:00 Completed [facility] SARS-COV-2 COVID-19 MODERNA 0.25ML BOOSTER VACCINE 2021-09-03 00:00:00 Completed [facility] SARS-COV-2 COVID-19 MODERNA 0.25ML BOOSTER VACCINE 2021-09-03 00:00:00 Completed [facility] SARS-COV-2 COVID-19 MODERNA 0.25ML BOOSTER VACCINE 2021-09-03 00:00:00 Completed [facility] SARS-COV-2 COVID-19 MODERNA 0.25ML BOOSTER VACCINE 2021-09-03 00:00:00 Completed [facility] SARS-COV-2 COVID-19 MODERNA 0.25ML BOOSTER VACCINE 2021-09-03 00:00:00 Completed [facility] SARS-COV-2 COVID-19 MODERNA 0.25ML BOOSTER VACCINE 2021-09-03 00:00:00 Completed [facility] SARS-COV-2 COVID-19 MODERNA 0.25ML BOOSTER VACCINE 2021-09-03 00:00:00 Completed [facility] SARS-COV-2 COVID-19 MODERNA 0.25ML BOOSTER VACCINE 2021-09-03 00:00:00 Completed [facility] SARS-COV-2 COVID-19 MODERNA 0.25ML BOOSTER VACCINE 2021-09-03 00:00:00 Completed [facility] SARS-COV-2 COVID-19 MODERNA 0.25ML BOOSTER VACCINE 2021-09-03 00:00:00 Completed [facility] SARS-COV-2 COVID-19 MODERNA 0.25ML BOOSTER VACCINE 2021-09-03 00:00:00 Completed [facility] SARS-COV-2 COVID-19 MODERNA 0.25ML BOOSTER VACCINE 2021-09-03 00:00:00 Completed [facility] SARS-COV-2 COVID-19 MODERNA 0.25ML BOOSTER VACCINE 2021-09-03 00:00:00 Completed [facility] SARS-COV-2 COVID-19 MODERNA 0.25ML BOOSTER VACCINE 2021-09-03 00:00:00 Completed [facility] SARS-COV-2 COVID-19 MODERNA 0.25ML BOOSTER VACCINE 2021-09-03 00:00:00 Completed [facility] SARS-COV-2 COVID-19 MODERNA 0.25ML BOOSTER VACCINE 2021-09-03 00:00:00 Completed [facility] SARS-COV-2 COVID-19 MODERNA 0.25ML BOOSTER VACCINE 2021-09-03 00:00:00 Completed [facility] SARS-COV-2 COVID-19 MODERNA 0.25ML BOOSTER VACCINE 2021-09-03 00:00:00 Completed [facility] SARS-COV-2 COVID-19 MODERNA 0.25ML BOOSTER VACCINE 2021-09-03 00:00:00 Completed [facility] SARS-COV-2 COVID-19 MODERNA 0.25ML BOOSTER VACCINE 2021-09-03 00:00:00 Completed [facility] SARS-COV-2 COVID-19 MODERNA 0.25ML BOOSTER VACCINE 2021-09-03 00:00:00 Completed [facility] SARS-COV-2 COVID-19 MODERNA 0.25ML BOOSTER VACCINE 2021-09-03 00:00:00 Completed [facility] SARS-COV-2 COVID-19 MODERNA 0.25ML BOOSTER VACCINE 2021-09-03 00:00:00 Completed [facility] SARS-COV-2 COVID-19 MODERNA 0.25ML BOOSTER VACCINE 2021-09-03 00:00:00 Completed [facility] SARS-COV-2 COVID-19 MODERNA 0.25ML BOOSTER VACCINE 2021-09-03 00:00:00 Completed [facility] SARS-COV-2 COVID-19 MODERNA 0.25ML BOOSTER VACCINE 2021-09-03 00:00:00 Completed [facility] SARS-COV-2 COVID-19 MODERNA 0.25ML BOOSTER VACCINE 2021-09-03 00:00:00 Completed [facility] SARS-COV-2 COVID-19 MODERNA 0.25ML BOOSTER VACCINE 2021-09-03 00:00:00 Completed [facility] SARS-COV-2 COVID-19 MODERNA 0.25ML BOOSTER VACCINE 2021-09-03 00:00:00 Completed [facility] Pneumococcal 13 Conjugate, PCV13 (Prevnar 13) 2021-05-07 00:00:00 Completed [facility] Pneumococcal 13 Conjugate, PCV13 (Prevnar 13) 2021-05-07 00:00:00 Completed [facility] Pneumococcal 13 Conjugate, PCV13 (Prevnar 13) 2021-05-07 00:00:00 Completed [facility] Pneumococcal 13 Conjugate, PCV13 (Prevnar 13) 2021-05-07 00:00:00 Completed [facility] Pneumococcal 13 Conjugate, PCV13 (Prevnar 13) 2021-05-07 00:00:00 Completed [facility] Pneumococcal 13 Conjugate, PCV13 (Prevnar 13) 2021-05-07 00:00:00 Completed [facility] Pneumococcal 13 Conjugate, PCV13 (Prevnar 13) 2021-05-07 00:00:00 Completed [facility] Pneumococcal 13 Conjugate, PCV13 (Prevnar 13) 2021-05-07 00:00:00 Completed [facility] Pneumococcal 13 Conjugate, PCV13 (Prevnar 13) 2021-05-07 00:00:00 Completed [facility] Pneumococcal 13 Conjugate, PCV13 (Prevnar 13) 2021-05-07 00:00:00 Completed [facility] Pneumococcal 13 Conjugate, PCV13 (Prevnar 13) 2021-05-07 00:00:00 Completed [facility] Pneumococcal 13 Conjugate, PCV13 (Prevnar 13) 2021-05-07 00:00:00 Completed [facility] Pneumococcal 13 Conjugate, PCV13 (Prevnar 13) 2021-05-07 00:00:00 Completed [facility] Pneumococcal 13 Conjugate, PCV13 (Prevnar 13) 2021-05-07 00:00:00 Completed [facility] Pneumococcal 13 Conjugate, PCV13 (Prevnar 13) 2021-05-07 00:00:00 Completed [facility] Pneumococcal 13 Conjugate, PCV13 (Prevnar 13) 2021-05-07 00:00:00 Completed [facility] Pneumococcal 13 Conjugate, PCV13 (Prevnar 13) 2021-05-07 00:00:00 Completed [facility] Pneumococcal 13 Conjugate, PCV13 (Prevnar 13) 2021-05-07 00:00:00 Completed [facility] Pneumococcal 13 Conjugate, PCV13 (Prevnar 13) 2021-05-07 00:00:00 Completed [facility] Pneumococcal 13 Conjugate, PCV13 (Prevnar 13) 2021-05-07 00:00:00 Completed [facility] Pneumococcal 13 Conjugate, PCV13 (Prevnar 13) 2021-05-07 00:00:00 Completed [facility] Pneumococcal 13 Conjugate, PCV13 (Prevnar 13) 2021-05-07 00:00:00 Completed [facility] Pneumococcal 13 Conjugate, PCV13 (Prevnar 13) 2021-05-07 00:00:00 Completed [facility] Pneumococcal 13 Conjugate, PCV13 (Prevnar 13) 2021-05-07 00:00:00 Completed [facility] Pneumococcal 13 Conjugate, PCV13 (Prevnar 13) 2021-05-07 00:00:00 Completed [facility] Pneumococcal 13 Conjugate, PCV13 (Prevnar 13) 2021-05-07 00:00:00 Completed [facility] Pneumococcal 13 Conjugate, PCV13 (Prevnar 13) 2021-05-07 00:00:00 Completed [facility] Pneumococcal 13 Conjugate, PCV13 (Prevnar 13) 2021-05-07 00:00:00 Completed [facility] Pneumococcal 13 Conjugate, PCV13 (Prevnar 13) 2021-05-07 00:00:00 Completed [facility] Pneumococcal 13 Conjugate, PCV13 (Prevnar 13) 2021-05-07 00:00:00 Completed [facility] Pneumococcal 13 Conjugate, PCV13 (Prevnar 13) 2021-05-07 00:00:00 Completed [facility] Pneumococcal 13 Conjugate, PCV13 (Prevnar 13) 2021-05-07 00:00:00 Completed [facility] Pneumococcal 13 Conjugate, PCV13 (Prevnar 13) 2021-05-07 00:00:00 Completed [facility] Pneumococcal 13 Conjugate, PCV13 (Prevnar 13) 2021-05-07 00:00:00 Completed [facility] Pneumococcal 13 Conjugate, PCV13 (Prevnar 13) 2021-05-07 00:00:00 Completed [facility] Pneumococcal 13 Conjugate, PCV13 (Prevnar 13) 2021-05-07 00:00:00 Completed [facility] Pneumococcal 13 Conjugate, PCV13 (Prevnar 13) 2021-05-07 00:00:00 Completed [facility] Pneumococcal 13 Conjugate, PCV13 (Prevnar 13) 2021-05-07 00:00:00 Completed [facility] Pneumococcal 13 Conjugate, PCV13 (Prevnar 13) 2021-05-07 00:00:00 Completed [facility] Pneumococcal 13 Conjugate, PCV13 (Prevnar 13) 2021-05-07 00:00:00 Completed [facility] Pneumococcal 13 Conjugate, PCV13 (Prevnar 13) 2021-05-07 00:00:00 Completed [facility] Pneumococcal 13 Conjugate, PCV13 (Prevnar 13) 2021-05-07 00:00:00 Completed [facility] Pneumococcal 13 Conjugate, PCV13 (Prevnar 13) 2021-05-07 00:00:00 Completed [facility] Pneumococcal 13 Conjugate, PCV13 (Prevnar 13) 2021-05-07 00:00:00 Completed [facility] Pneumococcal 13 Conjugate, PCV13 (Prevnar 13) 2021-05-07 00:00:00 Completed [facility] Pneumococcal 13 Conjugate, PCV13 (Prevnar 13) 2021-05-07 00:00:00 Completed [facility] Pneumococcal 13 Conjugate, PCV13 (Prevnar 13) 2021-05-07 00:00:00 Completed [facility] Pneumococcal 13 Conjugate, PCV13 (Prevnar 13) 2021-05-07 00:00:00 Completed [facility] Pneumococcal 13 Conjugate, PCV13 (Prevnar 13) 2021-05-07 00:00:00 Completed [facility] Pneumococcal 13 Conjugate, PCV13 (Prevnar 13) 2021-05-07 00:00:00 Completed [facility] Pneumococcal 13 Conjugate, PCV13 (Prevnar 13) 2021-05-07 00:00:00 Completed [facility] Pneumococcal 13 Conjugate, PCV13 (Prevnar 13) 2021-05-07 00:00:00 Completed [facility] Pneumococcal 13 Conjugate, PCV13 (Prevnar 13) 2021-05-07 00:00:00 Completed [facility] Pneumococcal 13 Conjugate, PCV13 (Prevnar 13) 2021-05-07 00:00:00 Completed [facility] Pneumococcal 13 Conjugate, PCV13 (Prevnar 13) 2021-05-07 00:00:00 Completed [facility] Pneumococcal 13 Conjugate, PCV13 (Prevnar 13) 2021-05-07 00:00:00 Completed [facility] Pneumococcal 13 Conjugate, PCV13 (Prevnar 13) 2021-05-07 00:00:00 Completed [facility] Pneumococcal 13 Conjugate, PCV13 (Prevnar 13) 2021-05-07 00:00:00 Completed [facility] Pneumococcal 13 Conjugate, PCV13 (Prevnar 13) 2021-05-07 00:00:00 Completed [facility] Pneumococcal 13 Conjugate, PCV13 (Prevnar 13) 2021-05-07 00:00:00 Completed [facility] Pneumococcal 13 Conjugate, PCV13 (Prevnar 13) 2021-05-07 00:00:00 Completed [facility] Pneumococcal 13 Conjugate, PCV13 (Prevnar 13) 2021-05-07 00:00:00 Completed [facility] Pneumococcal 13 Conjugate, PCV13 (Prevnar 13) 2021-05-07 00:00:00 Completed [facility] Pneumococcal 13 Conjugate, PCV13 (Prevnar 13) 2021-05-07 00:00:00 Completed [facility] Pneumococcal 13 Conjugate, PCV13 (Prevnar 13) 2021-05-07 00:00:00 Completed [facility] Pneumococcal 13 Conjugate, PCV13 (Prevnar 13) 2021-05-07 00:00:00 Completed [facility] Pneumococcal 13 Conjugate, PCV13 (Prevnar 13) 2021-05-07 00:00:00 Completed [facility] Pneumococcal 13 Conjugate, PCV13 (Prevnar 13) 2021-05-07 00:00:00 Completed [facility] Pneumococcal 13 Conjugate, PCV13 (Prevnar 13) 2021-05-07 00:00:00 Completed [facility] Pneumococcal 13 Conjugate, PCV13 (Prevnar 13) 2021-05-07 00:00:00 Completed [facility] Pneumococcal 13 Conjugate, PCV13 (Prevnar 13) 2021-05-07 00:00:00 Completed [facility] Pneumococcal 13 Conjugate, PCV13 (Prevnar 13) 2021-05-07 00:00:00 Completed [facility] Pneumococcal 13 Conjugate, PCV13 (Prevnar 13) 2021-05-07 00:00:00 Completed [facility] Pneumococcal 13 Conjugate, PCV13 (Prevnar 13) 2021-05-07 00:00:00 Completed [facility] Pneumococcal 13 Conjugate, PCV13 (Prevnar 13) 2021-05-07 00:00:00 Completed [facility] Pneumococcal 13 Conjugate, PCV13 (Prevnar 13) 2021-05-07 00:00:00 Completed [facility] Pneumococcal 13 Conjugate, PCV13 (Prevnar 13) 2021-05-07 00:00:00 Completed [facility] Pneumococcal 13 Conjugate, PCV13 (Prevnar 13) 2021-05-07 00:00:00 Completed [facility] Pneumococcal 13 Conjugate, PCV13 (Prevnar 13) 2021-05-07 00:00:00 Completed [facility] Pneumococcal 13 Conjugate, PCV13 (Prevnar 13) 2021-05-07 00:00:00 Completed [facility] Pneumococcal 13 Conjugate, PCV13 (Prevnar 13) 2021-05-07 00:00:00 Completed [facility] Influenza Virus Vaccine,quad Im,preserve Free 65+ 2021-03-29 00:00:00 Completed [facility] Influenza Virus Vaccine,quad Im,preserve Free 65+ 2021-03-29 00:00:00 Completed [facility] Influenza Virus Vaccine,quad Im,preserve Free 65+ 2021-03-29 00:00:00 Completed [facility] Influenza Virus Vaccine,quad Im,preserve Free 65+ 2021-03-29 00:00:00 Completed [facility] Influenza Virus Vaccine,quad Im,preserve Free 65+ 2021-03-29 00:00:00 Completed [facility] Influenza Virus Vaccine,quad Im,preserve Free 652021-03-29 00:00:00 Completed [facility] Influenza Virus Vaccine,quad Im,preserve Free 652021-03-29 00:00:00 Completed [facility] Influenza Virus Vaccine,quad Im,preserve Free [id number] 00:00:00 Completed [facility] Influenza Virus Vaccine,quad Im,preserve Free [id number] 00:00:00 Completed [facility] Influenza Virus Vaccine,quad Im,preserve Free [id number] 00:00:00 Completed [facility] Influenza Virus Vaccine,quad Im,preserve Free [id number] 00:00:00 Completed [facility] Influenza Virus Vaccine,quad Im,preserve Free [id number] 00:00:00 Completed [facility] Influenza Virus Vaccine,quad Im,preserve Free [id number] 00:00:00 Completed [facility] Influenza Virus Vaccine,quad Im,preserve Free [id number] 00:00:00 Completed [facility] Influenza Virus Vaccine,quad Im,preserve Free [id number] 00:00:00 [facility] [facility] Influenza Virus Vaccine,quad Im,preserve Free 2021-03-29 00:00:00 Completed [facility] Influenza Virus Vaccine,quad Im,preserve Free 652021-03-29 00:00:00 Completed [facility] Influenza Virus Vaccine,quad Im,preserve Free 2021-03-29 00:00:00 Completed [facility] Influenza Virus Vaccine,quad Im,preserve Free 652021-03-29 00:00:00 Completed [facility] Influenza Virus Vaccine,quad Im,preserve Free 652021-03-29 00:00:00 Completed [facility] Influenza Virus Vaccine,quad Im,preserve Free 652021-03-29 00:00:00 Completed [facility] Influenza Virus Vaccine,quad Im,preserve Free 652021-03-29 00:00:00 Completed [facility] Influenza Virus Vaccine,quad Im,preserve Free 652021-03-29 00:00:00 Completed [facility] Influenza Virus Vaccine,quad Im,preserve Free 652021-03-29 00:00:00 Completed [facility] Influenza Virus Vaccine,quad Im,preserve Free 652021-03-29 00:00:00 Completed [facility] Influenza Virus Vaccine,quad Im,preserve Free 652021-03-29 00:00:00 Completed [facility] Influenza Virus Vaccine,quad Im,preserve Free 652021-03-29 00:00:00 Completed [facility] Influenza Virus Vaccine,quad Im,preserve Free 652021-03-29 00:00:00 Completed [facility] Influenza Virus Vaccine,quad Im,preserve Free 652021-03-29 00:00:00 Completed [facility] Influenza Virus Vaccine,quad Im,preserve Free 652021-03-29 00:00:00 Completed [facility] Influenza Virus Vaccine,quad Im,preserve Free 652021-03-29 00:00:00 Completed [facility] Influenza Virus Vaccine,quad Im,preserve Free 652021-03-29 00:00:00 Completed [facility] Influenza Virus Vaccine,quad Im,preserve Free 652021-03-29 00:00:00 Completed [facility] Influenza Virus Vaccine,quad Im,preserve Free 652021-03-29 00:00:00 Completed [facility] Influenza Virus Vaccine,quad Im,preserve Free 652021-03-29 00:00:00 Completed [facility] Influenza Virus Vaccine,quad Im,preserve Free 652021-03-29 00:00:00 Completed [facility] Influenza Virus Vaccine,quad Im,preserve Free 652021-03-29 00:00:00 Completed [facility] Influenza Virus Vaccine,quad Im,preserve Free 652021-03-29 00:00:00 Completed [facility] Influenza Virus Vaccine,quad Im,preserve Free 652021-03-29 00:00:00 Completed [facility] Influenza Virus Vaccine,quad Im,preserve Free 652021-03-29 00:00:00 Completed [facility] Influenza Virus Vaccine,quad Im,preserve Free 652021-03-29 00:00:00 Completed [facility] Influenza Virus Vaccine,quad Im,preserve Free 652021-03-29 00:00:00 Completed [facility] Influenza Virus Vaccine,quad Im,preserve Free 652021-03-29 00:00:00 Completed [facility] Influenza Virus Vaccine,quad Im,preserve Free 652021-03-29 00:00:00 Completed [facility] Influenza Virus Vaccine,quad Im,preserve Free 652021-03-29 00:00:00 Completed [facility] Influenza Virus Vaccine,quad Im,preserve Free 652021-03-29 00:00:00 Completed [facility] Influenza Virus Vaccine,quad Im,preserve Free 652021-03-29 00:00:00 Completed [facility] Influenza Virus Vaccine,quad Im,preserve Free 652021-03-29 00:00:00 Completed [facility] Influenza Virus Vaccine,quad Im,preserve Free 652021-03-29 00:00:00 Completed [facility] Influenza Virus Vaccine,quad Im,preserve Free 2021-03-29 00:00:00 Completed [facility] Influenza Virus Vaccine,quad Im,preserve Free 652021-03-29 00:00:00 Completed [facility] Influenza Virus Vaccine,quad Im,preserve Free 652021-03-29 00:00:00 Completed [facility] Influenza Virus Vaccine,quad Im,preserve Free 652021-03-29 00:00:00 Completed [facility] Influenza Virus Vaccine,quad Im,preserve Free 652021-03-29 00:00:00 Completed [facility] Influenza Virus Vaccine,quad Im,preserve Free 652021-03-29 00:00:00 Completed [facility] Influenza Virus Vaccine,quad Im,preserve Free 652021-03-29 00:00:00 Completed [facility] Influenza Virus Vaccine,quad Im,preserve Free 652021-03-29 00:00:00 Completed [facility] Influenza Virus Vaccine,quad Im,preserve Free 652021-03-29 00:00:00 Completed [facility] Influenza Virus Vaccine,quad Im,preserve Free 652021-03-29 00:00:00 Completed [facility] Influenza Virus Vaccine,quad Im,preserve Free 65+ 2021-03-29 00:00:00 Completed [facility] Influenza Virus Vaccine,quad Im,preserve Free 65+ 2021-03-29 00:00:00 Completed [facility] Influenza Virus Vaccine,quad Im,preserve Free 65+ 2021-03-29 00:00:00 Completed [facility] Influenza Virus Vaccine,quad Im,preserve Free 65+ 2021-03-29 00:00:00 Completed [facility] Influenza Virus Vaccine,quad Im,preserve Free 65+ 2021-03-29 00:00:00 Completed [facility] Influenza Virus Vaccine,quad Im,preserve Free 65+ 2021-03-29 00:00:00 Completed [facility] Influenza Virus Vaccine,quad Im,preserve Free 65+ 2021-03-29 00:00:00 Completed [facility] Influenza Virus Vaccine,quad Im,preserve Free 65+ 2021-03-29 00:00:00 Completed [facility] Influenza Virus Vaccine,quad Im,preserve Free 65+ 2021-03-29 00:00:00 Completed [facility] Influenza Virus Vaccine,quad Im,preserve Free 65+ 2021-03-29 00:00:00 Completed [facility] Influenza Virus Vaccine,quad Im,preserve Free 65+ 2021-03-29 00:00:00 Completed [facility] Influenza Virus Vaccine,quad Im,preserve Free 65+ 2021-03-29 00:00:00 Completed [facility] Influenza Virus Vaccine,quad Im,preserve Free 65+ 2021-03-29 00:00:00 Completed [facility] Influenza Virus Vaccine,quad Im,preserve Free 65+ 2021-03-29 00:00:00 Completed [facility] Influenza Virus Vaccine,quad Im,preserve Free 65+ (FLUAD) 2021-03-29 00:00:00 Completed [facility] Influenza Virus Vaccine,quad Im,preserve Free 65+ (FLUAD) 2021-03-29 00:00:00 Completed [facility] Influenza Virus Vaccine,quad Im,preserve Free 65+ (FLUAD) 2021-03-29 00:00:00 Completed [facility] Influenza Virus Vaccine,quad Im,preserve Free 65+ (FLUAD) 2021-03-29 00:00:00 Completed [facility] Influenza Virus Vaccine,quad Im,preserve Free 65+ (FLUAD) 2021-03-29 00:00:00 Completed [facility] Influenza Virus Vaccine,quad Im,preserve Free 65+ (FLUAD) 2021-03-29 00:00:00 Completed [facility] Influenza Virus Vaccine,quad Im,preserve Free 65+ (FLUAD) 2021-03-29 00:00:00 Completed [facility] Influenza Virus Vaccine,quad Im,preserve Free 65+ (FLUAD) 2021-03-29 00:00:00 Completed [facility] SARS-COV-2 COVID-19 MODERNA 12+ YRS VACCINE 2020-12-29 00:00:00 Completed [facility] SARS-COV-2 COVID-19 MODERNA 12+ YRS VACCINE 2020-12-29 00:00:00 Completed [facility] SARS-COV-2 COVID-19 MODERNA 12+ YRS VACCINE 2020-12-29 00:00:00 Completed [facility] SARS-COV-2 COVID-19 MODERNA 12+ YRS VACCINE 2020-12-29 00:00:00 Completed [facility] SARS-COV-2 COVID-19 MODERNA 12+ YRS VACCINE 2020-12-29 00:00:00 Completed [facility] SARS-COV-2 COVID-19 MODERNA 12+ YRS VACCINE 2020-12-29 00:00:00 Completed [facility] SARS-COV-2 COVID-19 MODERNA 12+ YRS VACCINE 2020-12-29 00:00:00 Completed [facility] SARS-COV-2 COVID-19 MODERNA 12+ YRS VACCINE 2020-12-29 00:00:00 Completed [facility] SARS-COV-2 COVID-19 MODERNA 12+ YRS VACCINE 2020-12-29 00:00:00 Completed [facility] SARS-COV-2 COVID-19 MODERNA 12+ YRS VACCINE 2020-12-29 00:00:00 Completed [facility] SARS-COV-2 COVID-19 MODERNA 12+ YRS VACCINE 2020-12-29 00:00:00 Completed [facility] SARS-COV-2 COVID-19 MODERNA 12+ YRS VACCINE 2020-12-29 00:00:00 Completed [facility] SARS-COV-2 COVID-19 MODERNA 12+ YRS VACCINE 2020-12-29 00:00:00 Completed [facility] SARS-COV-2 COVID-19 MODERNA 12+ YRS VACCINE 2020-12-29 00:00:00 Completed [facility] SARS-COV-2 COVID-19 MODERNA 12+ YRS VACCINE 2020-12-29 00:00:00 Completed [facility] SARS-COV-2 COVID-19 MODERNA 12+ YRS VACCINE 2020-12-29 00:00:00 Completed [facility] SARS-COV-2 COVID-19 MODERNA 12+ YRS VACCINE 2020-12-29 00:00:00 Completed [facility] SARS-COV-2 COVID-19 MODERNA 12+ YRS VACCINE 2020-12-29 00:00:00 Completed [facility] SARS-COV-2 COVID-19 MODERNA 12+ YRS VACCINE 2020-12-29 00:00:00 Completed [facility] SARS-COV-2 COVID-19 MODERNA 12+ YRS VACCINE 2020-12-29 00:00:00 Completed [facility] SARS-COV-2 COVID-19 MODERNA 12+ YRS VACCINE 2020-12-29 00:00:00 Completed [facility] SARS-COV-2 COVID-19 MODERNA 12+ YRS VACCINE 2020-12-29 00:00:00 Completed [facility] SARS-COV-2 COVID-19 MODERNA 12+ YRS VACCINE 2020-12-29 00:00:00 Completed [facility] SARS-COV-2 COVID-19 MODERNA 12+ YRS VACCINE 2020-12-29 00:00:00 Completed [facility] SARS-COV-2 COVID-19 MODERNA 12+ YRS VACCINE 2020-12-29 00:00:00 Completed [facility] SARS-COV-2 COVID-19 MODERNA 12+ YRS VACCINE 2020-12-29 00:00:00 Completed [facility] SARS-COV-2 COVID-19 MODERNA 12+ YRS VACCINE 2020-12-29 00:00:00 Completed [facility] SARS-COV-2 COVID-19 MODERNA 12+ YRS VACCINE 2020-12-29 00:00:00 Completed [facility] SARS-COV-2 COVID-19 MODERNA 12+ YRS VACCINE 2020-12-29 00:00:00 Completed [facility] SARS-COV-2 COVID-19 MODERNA 12+ YRS VACCINE 2020-12-29 00:00:00 Completed [facility] SARS-COV-2 COVID-19 MODERNA 12+ YRS VACCINE 2020-12-29 00:00:00 Completed [facility] SARS-COV-2 COVID-19 MODERNA 12+ YRS VACCINE 2020-12-29 00:00:00 Completed [facility] SARS-COV-2 COVID-19 MODERNA 12+ YRS VACCINE 2020-12-29 00:00:00 Completed [facility] SARS-COV-2 COVID-19 MODERNA 12+ YRS VACCINE 2020-12-29 00:00:00 Completed [facility] SARS-COV-2 COVID-19 MODERNA 12+ YRS VACCINE 2020-12-29 00:00:00 Completed [facility] SARS-COV-2 COVID-19 MODERNA 12+ YRS VACCINE 2020-12-29 00:00:00 Completed [facility] SARS-COV-2 COVID-19 MODERNA 12+ YRS VACCINE 2020-12-29 00:00:00 Completed [facility] SARS-COV-2 COVID-19 MODERNA 12+ YRS VACCINE 2020-12-29 00:00:00 Completed [facility] SARS-COV-2 COVID-19 MODERNA 12+ YRS VACCINE 2020-12-29 00:00:00 Completed [facility] SARS-COV-2 COVID-19 MODERNA 12+ YRS VACCINE 2020-12-29 00:00:00 Completed [facility] SARS-COV-2 COVID-19 MODERNA 12+ YRS VACCINE 2020-12-29 00:00:00 Completed [facility] SARS-COV-2 COVID-19 MODERNA 12+ YRS VACCINE 2020-12-29 00:00:00 Completed [facility] SARS-COV-2 COVID-19 MODERNA 12+ YRS VACCINE 2020-12-29 00:00:00 Completed [facility] SARS-COV-2 COVID-19 MODERNA 12+ YRS VACCINE 2020-12-29 00:00:00 Completed [facility] SARS-COV-2 COVID-19 MODERNA 12+ YRS VACCINE 2020-12-29 00:00:00 Completed [facility] SARS-COV-2 COVID-19 MODERNA 12+ YRS VACCINE 2020-12-29 00:00:00 Completed [facility] SARS-COV-2 COVID-19 MODERNA 12+ YRS VACCINE 2020-12-29 00:00:00 Completed [facility] SARS-COV-2 COVID-19 MODERNA 12+ YRS VACCINE 2020-12-29 00:00:00 Completed [facility] SARS-COV-2 COVID-19 MODERNA 12+ YRS VACCINE 2020-12-29 00:00:00 Completed [facility] SARS-COV-2 COVID-19 MODERNA 12+ YRS VACCINE 2020-12-29 00:00:00 Completed [facility] SARS-COV-2 COVID-19 MODERNA 12+ YRS VACCINE 2020-12-29 00:00:00 Completed [facility] SARS-COV-2 COVID-19 MODERNA 12+ YRS VACCINE 2020-12-29 00:00:00 Completed [facility] SARS-COV-2 COVID-19 MODERNA 12+ YRS VACCINE 2020-12-29 00:00:00 Completed [facility] SARS-COV-2 COVID-19 MODERNA 12+ YRS VACCINE 2020-12-29 00:00:00 Completed [facility] SARS-COV-2 COVID-19 MODERNA 12+ YRS VACCINE 2020-12-29 00:00:00 Completed [facility] SARS-COV-2 COVID-19 MODERNA 12+ YRS VACCINE 2020-12-29 00:00:00 Completed [facility] SARS-COV-2 COVID-19 MODERNA 12+ YRS VACCINE 2020-12-29 00:00:00 Completed [facility] SARS-COV-2 COVID-19 MODERNA 12+ YRS VACCINE 2020-12-29 00:00:00 Completed [facility] SARS-COV-2 COVID-19 MODERNA 12+ YRS VACCINE 2020-12-29 00:00:00 Completed [facility] SARS-COV-2 COVID-19 MODERNA 12+ YRS VACCINE 2020-12-29 00:00:00 Completed [facility] SARS-COV-2 COVID-19 MODERNA 12+ YRS VACCINE 2020-12-29 00:00:00 Completed [facility] SARS-COV-2 COVID-19 MODERNA 12+ YRS VACCINE 2020-12-29 00:00:00 Completed [facility] SARS-COV-2 COVID-19 MODERNA 12+ YRS VACCINE 2020-12-29 00:00:00 Completed [facility] SARS-COV-2 COVID-19 MODERNA 12+ YRS VACCINE 2020-12-29 00:00:00 Completed [facility] SARS-COV-2 COVID-19 MODERNA 12+ YRS VACCINE 2020-12-29 00:00:00 Completed [facility] SARS-COV-2 COVID-19 MODERNA 12+ YRS VACCINE 2020-12-29 00:00:00 Completed [facility] SARS-COV-2 COVID-19 MODERNA 12+ YRS VACCINE 2020-12-29 00:00:00 Completed [facility] SARS-COV-2 COVID-19 MODERNA 12+ YRS VACCINE 2020-12-29 00:00:00 Completed [facility] SARS-COV-2 COVID-19 MODERNA 12+ YRS VACCINE 2020-12-29 00:00:00 Completed [facility] SARS-COV-2 COVID-19 MODERNA 12+ YRS VACCINE 2020-12-29 00:00:00 Completed [facility] SARS-COV-2 COVID-19 MODERNA 12+ YRS VACCINE 2020-12-29 00:00:00 Completed [facility] SARS-COV-2 COVID-19 MODERNA 12+ YRS VACCINE 2020-12-29 00:00:00 Completed [facility] SARS-COV-2 COVID-19 MODERNA 12+ YRS VACCINE 2020-12-29 00:00:00 Completed [facility] SARS-COV-2 COVID-19 MODERNA 12+ YRS VACCINE 2020-12-29 00:00:00 Completed [facility] SARS-COV-2 COVID-19 MODERNA 12+ YRS VACCINE 2020-12-29 00:00:00 Completed [facility] SARS-COV-2 COVID-19 MODERNA 12+ YRS VACCINE 2020-12-29 00:00:00 Completed [facility] SARS-COV-2 COVID-19 MODERNA 12+ YRS VACCINE 2020-12-29 00:00:00 Completed [facility] SARS-COV-2 COVID-19 MODERNA 12+ YRS VACCINE 2020-12-29 00:00:00 Completed [facility] SARS-COV-2 COVID-19 MODERNA 12+ YRS VACCINE 2020-12-29 00:00:00 Completed [facility] SARS-COV-2 COVID-19 MODERNA 12+ YRS VACCINE 2020-12-29 00:00:00 Completed [facility] SARS-COV-2 COVID-19 MODERNA 12+ YRS VACCINE 2020-12-29 00:00:00 Completed [facility] SARS-COV-2 COVID-19 MODERNA 12+ YRS VACCINE 2020-06-01 00:00:00 Completed [facility] SARS-COV-2 COVID-19 MODERNA 12+ YRS VACCINE 2020-06-01 00:00:00 Completed [facility] SARS-COV-2 COVID-19 MODERNA 12+ YRS VACCINE 2020-06-01 00:00:00 Completed [facility] SARS-COV-2 COVID-19 MODERNA 12+ YRS VACCINE 2020-06-01 00:00:00 Completed [facility] SARS-COV-2 COVID-19 MODERNA 12+ YRS VACCINE 2020-06-01 00:00:00 Completed [facility] SARS-COV-2 COVID-19 MODERNA 12+ YRS VACCINE 2020-06-01 00:00:00 Completed [facility] SARS-COV-2 COVID-19 MODERNA 12+ YRS VACCINE 2020-06-01 00:00:00 Completed [facility] SARS-COV-2 COVID-19 MODERNA 12+ YRS VACCINE 2020-06-01 00:00:00 Completed [facility] SARS-COV-2 COVID-19 MODERNA 12+ YRS VACCINE 2020-06-01 00:00:00 Completed [facility] SARS-COV-2 COVID-19 MODERNA 12+ YRS VACCINE 2020-06-01 00:00:00 Completed [facility] SARS-COV-2 COVID-19 MODERNA 12+ YRS VACCINE 2020-06-01 00:00:00 Completed [facility] SARS-COV-2 COVID-19 MODERNA 12+ YRS VACCINE 2020-06-01 00:00:00 Completed [facility] SARS-COV-2 COVID-19 MODERNA 12+ YRS VACCINE 2020-06-01 00:00:00 Completed [facility] SARS-COV-2 COVID-19 MODERNA 12+ YRS VACCINE 2020-06-01 00:00:00 Completed [facility] SARS-COV-2 COVID-19 MODERNA 12+ YRS VACCINE 2020-06-01 00:00:00 Completed [facility] SARS-COV-2 COVID-19 MODERNA 12+ YRS VACCINE 2020-06-01 00:00:00 Completed [facility] SARS-COV-2 COVID-19 MODERNA 12+ YRS VACCINE 2020-06-01 00:00:00 Completed [facility] SARS-COV-2 COVID-19 MODERNA 12+ YRS VACCINE 2020-06-01 00:00:00 Completed [facility] SARS-COV-2 COVID-19 MODERNA 12+ YRS VACCINE 2020-06-01 00:00:00 Completed [facility] SARS-COV-2 COVID-19 MODERNA 12+ YRS VACCINE 2020-06-01 00:00:00 Completed [facility] SARS-COV-2 COVID-19 MODERNA 12+ YRS VACCINE 2020-06-01 00:00:00 Completed [facility] SARS-COV-2 COVID-19 MODERNA 12+ YRS VACCINE 2020-06-01 00:00:00 Completed [facility] SARS-COV-2 COVID-19 MODERNA 12+ YRS VACCINE 2020-06-01 00:00:00 Completed [facility] SARS-COV-2 COVID-19 MODERNA 12+ YRS VACCINE 2020-06-01 00:00:00 Completed [facility] SARS-COV-2 COVID-19 MODERNA 12+ YRS VACCINE 2020-06-01 00:00:00 Completed [facility] SARS-COV-2 COVID-19 MODERNA 12+ YRS VACCINE 2020-06-01 00:00:00 Completed [facility] SARS-COV-2 COVID-19 MODERNA 12+ YRS VACCINE 2020-06-01 00:00:00 Completed [facility] SARS-COV-2 COVID-19 MODERNA 12+ YRS VACCINE 2020-06-01 00:00:00 Completed [facility] SARS-COV-2 COVID-19 MODERNA 12+ YRS VACCINE 2020-06-01 00:00:00 Completed [facility] SARS-COV-2 COVID-19 MODERNA 12+ YRS VACCINE 2020-06-01 00:00:00 Completed [facility] SARS-COV-2 COVID-19 MODERNA 12+ YRS VACCINE 2020-06-01 00:00:00 Completed [facility] SARS-COV-2 COVID-19 MODERNA 12+ YRS VACCINE 2020-06-01 00:00:00 Completed [facility] SARS-COV-2 COVID-19 MODERNA 12+ YRS VACCINE 2020-06-01 00:00:00 Completed [facility] SARS-COV-2 COVID-19 MODERNA 12+ YRS VACCINE 2020-06-01 00:00:00 Completed [facility] SARS-COV-2 COVID-19 MODERNA 12+ YRS VACCINE 2020-06-01 00:00:00 Completed [facility] SARS-COV-2 COVID-19 MODERNA 12+ YRS VACCINE 2020-06-01 00:00:00 Completed [facility] SARS-COV-2 COVID-19 MODERNA 12+ YRS VACCINE 2020-06-01 00:00:00 Completed [facility] SARS-COV-2 COVID-19 MODERNA 12+ YRS VACCINE 2020-06-01 00:00:00 Completed [facility] SARS-COV-2 COVID-19 MODERNA 12+ YRS VACCINE 2020-06-01 00:00:00 Completed [facility] SARS-COV-2 COVID-19 MODERNA 12+ YRS VACCINE 2020-06-01 00:00:00 Completed [facility] SARS-COV-2 COVID-19 MODERNA 12+ YRS VACCINE 2020-06-01 00:00:00 Completed [facility] SARS-COV-2 COVID-19 MODERNA 12+ YRS VACCINE 2020-06-01 00:00:00 Completed [facility] SARS-COV-2 COVID-19 MODERNA 12+ YRS VACCINE 2020-06-01 00:00:00 Completed [facility] SARS-COV-2 COVID-19 MODERNA 12+ YRS VACCINE 2020-06-01 00:00:00 Completed [facility] SARS-COV-2 COVID-19 MODERNA 12+ YRS VACCINE 2020-06-01 00:00:00 Completed [facility] SARS-COV-2 COVID-19 MODERNA 12+ YRS VACCINE 2020-06-01 00:00:00 Completed [facility] SARS-COV-2 COVID-19 MODERNA 12+ YRS VACCINE 2020-06-01 00:00:00 Completed [facility] SARS-COV-2 COVID-19 MODERNA 12+ YRS VACCINE 2020-06-01 00:00:00 Completed [facility] SARS-COV-2 COVID-19 MODERNA 12+ YRS VACCINE 2020-06-01 00:00:00 Completed [facility] SARS-COV-2 COVID-19 MODERNA 12+ YRS VACCINE 2020-06-01 00:00:00 Completed [facility] SARS-COV-2 COVID-19 MODERNA 12+ YRS VACCINE 2020-06-01 00:00:00 Completed [facility] SARS-COV-2 COVID-19 MODERNA 12+ YRS VACCINE 2020-06-01 00:00:00 Completed [facility] SARS-COV-2 COVID-19 MODERNA 12+ YRS VACCINE 2020-06-01 00:00:00 Completed [facility] SARS-COV-2 COVID-19 MODERNA 12+ YRS VACCINE 2020-06-01 00:00:00 Completed [facility] SARS-COV-2 COVID-19 MODERNA 12+ YRS VACCINE 2020-06-01 00:00:00 Completed [facility] SARS-COV-2 COVID-19 MODERNA 12+ YRS VACCINE 2020-06-01 00:00:00 Completed [facility] SARS-COV-2 COVID-19 MODERNA 12+ YRS VACCINE 2020-06-01 00:00:00 Completed [facility] SARS-COV-2 COVID-19 MODERNA 12+ YRS VACCINE 2020-06-01 00:00:00 Completed [facility] SARS-COV-2 COVID-19 MODERNA 12+ YRS VACCINE 2020-06-01 00:00:00 Completed [facility] SARS-COV-2 COVID-19 MODERNA 12+ YRS VACCINE 2020-06-01 00:00:00 Completed [facility] SARS-COV-2 COVID-19 MODERNA 12+ YRS VACCINE 2020-06-01 00:00:00 Completed [facility] SARS-COV-2 COVID-19 MODERNA 12+ YRS VACCINE 2020-06-01 00:00:00 Completed [facility] SARS-COV-2 COVID-19 MODERNA 12+ YRS VACCINE 2020-06-01 00:00:00 Completed [facility] SARS-COV-2 COVID-19 MODERNA 12+ YRS VACCINE 2020-06-01 00:00:00 Completed [facility] SARS-COV-2 COVID-19 MODERNA 12+ YRS VACCINE 2020-06-01 00:00:00 Completed [facility] SARS-COV-2 COVID-19 MODERNA 12+ YRS VACCINE 2020-06-01 00:00:00 Completed [facility] SARS-COV-2 COVID-19 MODERNA 12+ YRS VACCINE 2020-06-01 00:00:00 Completed [facility] SARS-COV-2 COVID-19 MODERNA 12+ YRS VACCINE 2020-06-01 00:00:00 Completed [facility] SARS-COV-2 COVID-19 MODERNA 12+ YRS VACCINE 2020-06-01 00:00:00 Completed [facility] SARS-COV-2 COVID-19 MODERNA 12+ YRS VACCINE 2020-06-01 00:00:00 Completed [facility] SARS-COV-2 COVID-19 MODERNA 12+ YRS VACCINE 2020-06-01 00:00:00 Completed [facility] SARS-COV-2 COVID-19 MODERNA 12+ YRS VACCINE 2020-06-01 00:00:00 Completed [facility] SARS-COV-2 COVID-19 MODERNA 12+ YRS VACCINE 2020-06-01 00:00:00 Completed [facility] SARS-COV-2 COVID-19 MODERNA 12+ YRS VACCINE 2020-06-01 00:00:00 Completed [facility] SARS-COV-2 COVID-19 MODERNA 12+ YRS VACCINE 2020-06-01 00:00:00 Completed [facility] SARS-COV-2 COVID-19 MODERNA 12+ YRS VACCINE 2020-06-01 00:00:00 Completed [facility] SARS-COV-2 COVID-19 MODERNA 12+ YRS VACCINE 2020-06-01 00:00:00 Completed [facility] SARS-COV-2 COVID-19 MODERNA 12+ YRS VACCINE 2020-06-01 00:00:00 Completed [facility] SARS-COV-2 COVID-19 MODERNA 12+ YRS VACCINE 2020-06-01 00:00:00 Completed [facility] SARS-COV-2 COVID-19 MODERNA 12+ YRS VACCINE 2020-06-01 00:00:00 Completed [facility] SARS-COV-2 COVID-19 MODERNA 12+ YRS VACCINE 2020-06-01 00:00:00 Completed [facility] SARS-COV-2 COVID-19 MODERNA 12+ YRS VACCINE 2020-05-04 00:00:00 Completed [facility] SARS-COV-2 COVID-19 MODERNA 12+ YRS VACCINE 2020-05-04 00:00:00 Completed [facility] SARS-COV-2 COVID-19 MODERNA 12+ YRS VACCINE 2020-05-04 00:00:00 Completed [facility] SARS-COV-2 COVID-19 MODERNA 12+ YRS VACCINE 2020-05-04 00:00:00 Completed [facility] SARS-COV-2 COVID-19 MODERNA 12+ YRS VACCINE 2020-05-04 00:00:00 Completed [facility] SARS-COV-2 COVID-19 MODERNA 12+ YRS VACCINE 2020-05-04 00:00:00 Completed [facility] SARS-COV-2 COVID-19 MODERNA 12+ YRS VACCINE 2020-05-04 00:00:00 Completed [facility] SARS-COV-2 COVID-19 MODERNA 12+ YRS VACCINE 2020-05-04 00:00:00 Completed [facility] SARS-COV-2 COVID-19 MODERNA 12+ YRS VACCINE 2020-05-04 00:00:00 Completed [facility] SARS-COV-2 COVID-19 MODERNA 12+ YRS VACCINE 2020-05-04 00:00:00 Completed [facility] SARS-COV-2 COVID-19 MODERNA 12+ YRS VACCINE 2020-05-04 00:00:00 Completed [facility] SARS-COV-2 COVID-19 MODERNA 12+ YRS VACCINE 2020-05-04 00:00:00 Completed [facility] SARS-COV-2 COVID-19 MODERNA 12+ YRS VACCINE 2020-05-04 00:00:00 Completed [facility] SARS-COV-2 COVID-19 MODERNA 12+ YRS VACCINE 2020-05-04 00:00:00 Completed [facility] SARS-COV-2 COVID-19 MODERNA 12+ YRS VACCINE 2020-05-04 00:00:00 Completed [facility] SARS-COV-2 COVID-19 MODERNA 12+ YRS VACCINE 2020-05-04 00:00:00 Completed [facility] SARS-COV-2 COVID-19 MODERNA 12+ YRS VACCINE 2020-05-04 00:00:00 Completed [facility] SARS-COV-2 COVID-19 MODERNA 12+ YRS VACCINE 2020-05-04 00:00:00 Completed [facility] SARS-COV-2 COVID-19 MODERNA 12+ YRS VACCINE 2020-05-04 00:00:00 Completed [facility] SARS-COV-2 COVID-19 MODERNA 12+ YRS VACCINE 2020-05-04 00:00:00 Completed [facility] SARS-COV-2 COVID-19 MODERNA 12+ YRS VACCINE 2020-05-04 00:00:00 Completed [facility] SARS-COV-2 COVID-19 MODERNA 12+ YRS VACCINE 2020-05-04 00:00:00 Completed [facility] SARS-COV-2 COVID-19 MODERNA 12+ YRS VACCINE 2020-05-04 00:00:00 Completed [facility] SARS-COV-2 COVID-19 MODERNA 12+ YRS VACCINE 2020-05-04 00:00:00 Completed [facility] SARS-COV-2 COVID-19 MODERNA 12+ YRS VACCINE 2020-05-04 00:00:00 Completed [facility] SARS-COV-2 COVID-19 MODERNA 12+ YRS VACCINE 2020-05-04 00:00:00 Completed [facility] SARS-COV-2 COVID-19 MODERNA 12+ YRS VACCINE 2020-05-04 00:00:00 Completed [facility] SARS-COV-2 COVID-19 MODERNA 12+ YRS VACCINE 2020-05-04 00:00:00 Completed [facility] SARS-COV-2 COVID-19 MODERNA 12+ YRS VACCINE 2020-05-04 00:00:00 Completed [facility] SARS-COV-2 COVID-19 MODERNA 12+ YRS VACCINE 2020-05-04 00:00:00 Completed [facility] SARS-COV-2 COVID-19 MODERNA 12+ YRS VACCINE 2020-05-04 00:00:00 Completed [facility] SARS-COV-2 COVID-19 MODERNA 12+ YRS VACCINE 2020-05-04 00:00:00 Completed [facility] SARS-COV-2 COVID-19 MODERNA 12+ YRS VACCINE 2020-05-04 00:00:00 Completed [facility] SARS-COV-2 COVID-19 MODERNA 12+ YRS VACCINE 2020-05-04 00:00:00 Completed [facility] SARS-COV-2 COVID-19 MODERNA 12+ YRS VACCINE 2020-05-04 00:00:00 Completed [facility] SARS-COV-2 COVID-19 MODERNA 12+ YRS VACCINE 2020-05-04 00:00:00 Completed [facility] SARS-COV-2 COVID-19 MODERNA 12+ YRS VACCINE 2020-05-04 00:00:00 Completed [facility] SARS-COV-2 COVID-19 MODERNA 12+ YRS VACCINE 2020-05-04 00:00:00 Completed [facility] SARS-COV-2 COVID-19 MODERNA 12+ YRS VACCINE 2020-05-04 00:00:00 Completed [facility] SARS-COV-2 COVID-19 MODERNA 12+ YRS VACCINE 2020-05-04 00:00:00 Completed [facility] SARS-COV-2 COVID-19 MODERNA 12+ YRS VACCINE 2020-05-04 00:00:00 Completed [facility] SARS-COV-2 COVID-19 MODERNA 12+ YRS VACCINE 2020-05-04 00:00:00 Completed [facility] SARS-COV-2 COVID-19 MODERNA 12+ YRS VACCINE 2020-05-04 00:00:00 Completed [facility] SARS-COV-2 COVID-19 MODERNA 12+ YRS VACCINE 2020-05-04 00:00:00 Completed [facility] SARS-COV-2 COVID-19 MODERNA 12+ YRS VACCINE 2020-05-04 00:00:00 Completed [facility] SARS-COV-2 COVID-19 MODERNA 12+ YRS VACCINE 2020-05-04 00:00:00 Completed [facility] SARS-COV-2 COVID-19 MODERNA 12+ YRS VACCINE 2020-05-04 00:00:00 Completed [facility] SARS-COV-2 COVID-19 MODERNA 12+ YRS VACCINE 2020-05-04 00:00:00 Completed [facility] SARS-COV-2 COVID-19 MODERNA 12+ YRS VACCINE 2020-05-04 00:00:00 Completed [facility] SARS-COV-2 COVID-19 MODERNA 12+ YRS VACCINE 2020-05-04 00:00:00 Completed [facility] SARS-COV-2 COVID-19 MODERNA 12+ YRS VACCINE 2020-05-04 00:00:00 Completed [facility] SARS-COV-2 COVID-19 MODERNA 12+ YRS VACCINE 2020-05-04 00:00:00 Completed [facility] SARS-COV-2 COVID-19 MODERNA 12+ YRS VACCINE 2020-05-04 00:00:00 Completed [facility] SARS-COV-2 COVID-19 MODERNA 12+ YRS VACCINE 2020-05-04 00:00:00 Completed [facility] SARS-COV-2 COVID-19 MODERNA 12+ YRS VACCINE 2020-05-04 00:00:00 Completed [facility] SARS-COV-2 COVID-19 MODERNA 12+ YRS VACCINE 2020-05-04 00:00:00 Completed [facility] SARS-COV-2 COVID-19 MODERNA 12+ YRS VACCINE 2020-05-04 00:00:00 Completed [facility] SARS-COV-2 COVID-19 MODERNA 12+ YRS VACCINE 2020-05-04 00:00:00 Completed [facility] SARS-COV-2 COVID-19 MODERNA 12+ YRS VACCINE 2020-05-04 00:00:00 Completed [facility] SARS-COV-2 COVID-19 MODERNA 12+ YRS VACCINE 2020-05-04 00:00:00 Completed [facility] SARS-COV-2 COVID-19 MODERNA 12+ YRS VACCINE 2020-05-04 00:00:00 Completed [facility] SARS-COV-2 COVID-19 MODERNA 12+ YRS VACCINE 2020-05-04 00:00:00 Completed [facility] SARS-COV-2 COVID-19 MODERNA 12+ YRS VACCINE 2020-05-04 00:00:00 Completed [facility] SARS-COV-2 COVID-19 MODERNA 12+ YRS VACCINE 2020-05-04 00:00:00 Completed [facility] SARS-COV-2 COVID-19 MODERNA 12+ YRS VACCINE 2020-05-04 00:00:00 Completed [facility] SARS-COV-2 COVID-19 MODERNA 12+ YRS VACCINE 2020-05-04 00:00:00 Completed [facility] SARS-COV-2 COVID-19 MODERNA 12+ YRS VACCINE 2020-05-04 00:00:00 Completed [facility] SARS-COV-2 COVID-19 MODERNA 12+ YRS VACCINE 2020-05-04 00:00:00 Completed [facility] SARS-COV-2 COVID-19 MODERNA 12+ YRS VACCINE 2020-05-04 00:00:00 Completed [facility] SARS-COV-2 COVID-19 MODERNA 12+ YRS VACCINE 2020-05-04 00:00:00 Completed [facility] SARS-COV-2 COVID-19 MODERNA 12+ YRS VACCINE 2020-05-04 00:00:00 Completed [facility] SARS-COV-2 COVID-19 MODERNA 12+ YRS VACCINE 2020-05-04 00:00:00 Completed [facility] SARS-COV-2 COVID-19 MODERNA 12+ YRS VACCINE 2020-05-04 00:00:00 Completed [facility] SARS-COV-2 COVID-19 MODERNA 12+ YRS VACCINE 2020-05-04 00:00:00 Completed [facility] SARS-COV-2 COVID-19 MODERNA 12+ YRS VACCINE 2020-05-04 00:00:00 Completed [facility] SARS-COV-2 COVID-19 MODERNA 12+ YRS VACCINE 2020-05-04 00:00:00 Completed [facility] SARS-COV-2 COVID-19 MODERNA 12+ YRS VACCINE 2020-05-04 00:00:00 Completed [facility] SARS-COV-2 COVID-19 MODERNA 12+ YRS VACCINE 2020-05-04 00:00:00 Completed [facility] SARS-COV-2 COVID-19 MODERNA 12+ YRS VACCINE 2020-05-04 00:00:00 Completed [facility] SARS-COV-2 COVID-19 MODERNA 12+ YRS VACCINE 2020-05-04 00:00:00 Completed [facility] SARS-COV-2 COVID-19 MODERNA 12+ YRS VACCINE 2020-05-04 00:00:00 Completed [facility] Influenza Virus Vaccine Quad IM 3+ YRS 2020-02-16 00:00:00 Completed [facility] Influenza Virus Vaccine Quad IM 3+ YRS 2020-02-16 00:00:00 Completed [facility] Influenza Virus Vaccine Quad IM 3+ YRS 2020-02-16 00:00:00 Completed [facility] Influenza Virus Vaccine Quad IM 3+ YRS 2020-02-16 00:00:00 Completed [facility] Influenza Virus Vaccine Quad IM 3+ YRS 2020-02-16 00:00:00 Completed [facility] Influenza Virus Vaccine Quad IM 3+ YRS 2020-02-16 00:00:00 Completed [facility] Influenza Virus Vaccine Quad IM 3+ YRS 2020-02-16 00:00:00 Completed [facility] Influenza Virus Vaccine Quad IM 3+ YRS 2020-02-16 00:00:00 Completed [facility] Influenza Virus Vaccine Quad IM 3+ YRS 2020-02-16 00:00:00 Completed [facility] Influenza Virus Vaccine Quad IM 3+ YRS 2020-02-16 00:00:00 Completed [facility] Influenza Virus Vaccine Quad IM 3+ YRS 2020-02-16 00:00:00 Completed [facility] Influenza Virus Vaccine Quad IM 3+ YRS 2020-02-16 00:00:00 Completed [facility] Influenza Virus Vaccine Quad IM 3+ YRS 2020-02-16 00:00:00 Completed [facility] Influenza Virus Vaccine Quad IM 3+ YRS 2020-02-16 00:00:00 Completed [facility] Influenza Virus Vaccine Quad IM 3+ YRS 2020-02-16 00:00:00 Completed [facility] Influenza Virus Vaccine Quad IM 3+ YRS 2020-02-16 00:00:00 Completed [facility] Influenza Virus Vaccine Quad IM 3+ YRS 2020-02-16 00:00:00 Completed [facility] Influenza Virus Vaccine Quad IM 3+ YRS 2020-02-16 00:00:00 Completed [facility] Influenza Virus Vaccine Quad IM 3+ YRS 2020-02-16 00:00:00 Completed [facility] Influenza Virus Vaccine Quad IM 3+ YRS 2020-02-16 00:00:00 Completed [facility] Influenza Virus Vaccine Quad IM 3+ YRS 2020-02-16 00:00:00 Completed [facility] Influenza Virus Vaccine Quad IM 3+ YRS 2020-02-16 00:00:00 Completed [facility] Influenza Virus Vaccine Quad IM 3+ YRS 2020-02-16 00:00:00 Completed [facility] Influenza Virus Vaccine Quad IM 3+ YRS 2020-02-16 00:00:00 Completed [facility] Influenza Virus Vaccine Quad IM 3+ YRS 2020-02-16 00:00:00 Completed [facility] Influenza Virus Vaccine Quad IM 3+ YRS 2020-02-16 00:00:00 Completed [facility] Influenza Virus Vaccine Quad IM 3+ YRS 2020-02-16 00:00:00 Completed [facility] Influenza Virus Vaccine Quad IM 3+ YRS 2020-02-16 00:00:00 Completed [facility] Influenza Virus Vaccine Quad IM 3+ YRS 2020-02-16 00:00:00 Completed [facility] Influenza Virus Vaccine Quad IM 3+ YRS 2020-02-16 00:00:00 Completed [facility] Influenza Virus Vaccine Quad IM 3+ YRS 2020-02-16 00:00:00 Completed [facility] Influenza Virus Vaccine Quad IM 3+ YRS 2020-02-16 00:00:00 Completed [facility] Influenza Virus Vaccine Quad IM 3+ YRS 2020-02-16 00:00:00 Completed [facility] Influenza Virus Vaccine Quad IM 3+ YRS 2020-02-16 00:00:00 Completed [facility] Influenza Virus Vaccine Quad IM 3+ YRS 2020-02-16 00:00:00 Completed [facility] Influenza Virus Vaccine Quad IM 3+ YRS 2020-02-16 00:00:00 Completed [facility] Influenza Virus Vaccine Quad IM 3+ YRS 2020-02-16 00:00:00 Completed [facility] Influenza Virus Vaccine Quad IM 3+ YRS 2020-02-16 00:00:00 Completed [facility] Influenza Virus Vaccine Quad IM 3+ YRS 2020-02-16 00:00:00 Completed [facility] Influenza Virus Vaccine Quad IM 3+ YRS 2020-02-16 00:00:00 Completed [facility] Influenza Virus Vaccine Quad IM 3+ YRS 2020-02-16 00:00:00 Completed [facility] Influenza Virus Vaccine Quad IM 3+ YRS 2020-02-16 00:00:00 Completed [facility] Influenza Virus Vaccine Quad IM 3+ YRS 2020-02-16 00:00:00 Completed [facility] Influenza Virus Vaccine Quad IM 3+ YRS 2020-02-16 00:00:00 Completed [facility] Influenza Virus Vaccine Quad IM 3+ YRS 2020-02-16 00:00:00 Completed [facility] Influenza Virus Vaccine Quad IM 3+ YRS 2020-02-16 00:00:00 Completed [facility] Influenza Virus Vaccine Quad IM 3+ YRS 2020-02-16 00:00:00 Completed [facility] Influenza Virus Vaccine Quad IM 3+ YRS 2020-02-16 00:00:00 Completed [facility] Influenza Virus Vaccine Quad IM 3+ YRS 2020-02-16 00:00:00 Completed [facility] Influenza Virus Vaccine Quad IM 3+ YRS 2020-02-16 00:00:00 Completed [facility] Influenza Virus Vaccine Quad IM 3+ YRS 2020-02-16 00:00:00 Completed [facility] Influenza Virus Vaccine Quad IM 3+ YRS 2020-02-16 00:00:00 Completed [facility] Influenza Virus Vaccine Quad IM 3+ YRS 2020-02-16 00:00:00 Completed [facility] Influenza Virus Vaccine Quad IM 3+ YRS 2020-02-16 00:00:00 Completed [facility] Influenza Virus Vaccine Quad IM 3+ YRS 2020-02-16 00:00:00 Completed [facility] Influenza Virus Vaccine Quad IM 3+ YRS 2020-02-16 00:00:00 Completed [facility] Influenza Virus Vaccine Quad IM 3+ YRS 2020-02-16 00:00:00 Completed [facility] Influenza Virus Vaccine Quad IM 3+ YRS 2020-02-16 00:00:00 Completed [facility] Influenza Virus Vaccine Quad IM 3+ YRS 2020-02-16 00:00:00 Completed [facility] Influenza Virus Vaccine Quad IM 3+ YRS 2020-02-16 00:00:00 Completed [facility] Influenza Virus Vaccine Quad IM 3+ YRS 2020-02-16 00:00:00 Completed [facility] Influenza Virus Vaccine Quad IM 3+ YRS 2020-02-16 00:00:00 Completed [facility] Influenza Virus Vaccine Quad IM 3+ YRS 2020-02-16 00:00:00 Completed [facility] Influenza Virus Vaccine Quad IM 3+ YRS 2020-02-16 00:00:00 Completed [facility] Influenza Virus Vaccine Quad IM 3+ YRS 2020-02-16 00:00:00 Completed [facility] Influenza Virus Vaccine Quad IM 3+ YRS 2020-02-16 00:00:00 Completed [facility] Influenza Virus Vaccine Quad IM 3+ YRS 2020-02-16 00:00:00 Completed [facility] Influenza Virus Vaccine Quad IM 3+ YRS 2020-02-16 00:00:00 Completed [facility] Influenza Virus Vaccine Quad IM 3+ YRS 2020-02-16 00:00:00 Completed [facility] Influenza Virus Vaccine Quad IM 3+ YRS 2020-02-16 00:00:00 Completed [facility] Influenza Virus Vaccine Quad IM 3+ YRS 2020-02-16 00:00:00 Completed [facility] Influenza Virus Vaccine Quad IM 3+ YRS 2020-02-16 00:00:00 Completed [facility] Influenza Virus Vaccine Quad IM 3+ YRS 2020-02-16 00:00:00 Completed [facility] Influenza Virus Vaccine Quad IM 3+ YRS 2020-02-16 00:00:00 Completed [facility] Influenza Virus Vaccine Quad IM 3+ YRS 2020-02-16 00:00:00 Completed [facility] Influenza Virus Vaccine Quad IM 3+ YRS 2020-02-16 00:00:00 Completed [facility] Influenza Virus Vaccine Quad IM 3+ YRS 2020-02-16 00:00:00 Completed [facility] Influenza Virus Vaccine Quad IM 3+ YRS 2020-02-16 00:00:00 Completed [facility] Influenza Virus Vaccine Quad IM 3+ YRS 2020-02-16 00:00:00 Completed [facility] Influenza Virus Vaccine Quad IM 3+ YRS 2020-02-16 00:00:00 Completed [facility] Influenza Virus Vaccine Quad IM 3+ YRS 2020-02-16 00:00:00 Completed [facility] Influenza Virus Vaccine 2019-02-11 00:00:00 Completed [facility] Influenza Virus Vaccine 2019-02-11 00:00:00 Completed [facility] Influenza Virus Vaccine 2019-02-11 00:00:00 Completed [facility] Influenza Virus Vaccine 2019-02-11 00:00:00 Completed [facility] Influenza Virus Vaccine 2019-02-11 00:00:00 Completed [facility] Influenza Virus Vaccine 2019-02-11 00:00:00 Completed [facility] Influenza Virus Vaccine 2019-02-11 00:00:00 Completed [facility] Influenza Virus Vaccine 2019-02-11 00:00:00 Completed [facility] Influenza Virus Vaccine 2019-02-11 00:00:00 Completed [facility] Influenza Virus Vaccine 2019-02-11 00:00:00 Completed [facility] Influenza Virus Vaccine 2019-02-11 00:00:00 Completed [facility] Influenza Virus Vaccine 2019-02-11 00:00:00 Completed [facility] Influenza Virus Vaccine 2019-02-11 00:00:00 Completed [facility] Influenza Virus Vaccine 2019-02-11 00:00:00 Completed [facility] Influenza Virus Vaccine 2019-02-11 00:00:00 Completed [facility] Influenza Virus Vaccine 2019-02-11 00:00:00 Completed [facility] Influenza Virus Vaccine 2019-02-11 00:00:00 Completed [facility] Influenza Virus Vaccine 2019-02-11 00:00:00 Completed [facility] Influenza Virus Vaccine 2019-02-11 00:00:00 Completed [facility] Influenza Virus Vaccine 2019-02-11 00:00:00 Completed [facility] Influenza Virus Vaccine 2019-02-11 00:00:00 Completed [facility] Influenza Virus Vaccine 2019-02-11 00:00:00 Completed [facility] Influenza Virus Vaccine 2019-02-11 00:00:00 Completed [facility] Influenza Virus Vaccine 2019-02-11 00:00:00 Completed [facility] Influenza Virus Vaccine 2019-02-11 00:00:00 Completed [facility] Influenza Virus Vaccine 2019-02-11 00:00:00 Completed [facility] Influenza Virus Vaccine 2019-02-11 00:00:00 Completed [facility] Influenza Virus Vaccine 2019-02-11 00:00:00 Completed [facility] Influenza Virus Vaccine 2019-02-11 00:00:00 Completed [facility] Influenza Virus Vaccine 2019-02-11 00:00:00 Completed [facility] Influenza Virus Vaccine 2019-02-11 00:00:00 Completed [facility] Influenza Virus Vaccine 2019-02-11 00:00:00 Completed [facility] Influenza Virus Vaccine 2019-02-11 00:00:00 Completed [facility] Influenza Virus Vaccine 2019-02-11 00:00:00 Completed [facility] Influenza Virus Vaccine 2019-02-11 00:00:00 Completed [facility] Influenza Virus Vaccine 2019-02-11 00:00:00 Completed [facility] Influenza Virus Vaccine 2019-02-11 00:00:00 Completed [facility] Influenza Virus Vaccine 2019-02-11 00:00:00 Completed [facility] Influenza Virus Vaccine 2019-02-11 00:00:00 Completed [facility] Influenza Virus Vaccine 2019-02-11 00:00:00 Completed [facility] Influenza Virus Vaccine 2019-02-11 00:00:00 Completed [facility] Influenza Virus Vaccine 2019-02-11 00:00:00 Completed [facility] Influenza Virus Vaccine 2019-02-11 00:00:00 Completed [facility] Influenza Virus Vaccine 2019-02-11 00:00:00 Completed [facility] Influenza Virus Vaccine 2019-02-11 00:00:00 Completed [facility] Influenza Virus Vaccine 2019-02-11 00:00:00 Completed [facility] Influenza Virus Vaccine 2019-02-11 00:00:00 Completed [facility] Influenza Virus Vaccine 2019-02-11 00:00:00 Completed [facility] Influenza Virus Vaccine 2019-02-11 00:00:00 Completed [facility] Influenza Virus Vaccine 2019-02-11 00:00:00 Completed [facility] Influenza Virus Vaccine 2019-02-11 00:00:00 Completed [facility] Influenza Virus Vaccine 2019-02-11 00:00:00 Completed [facility] Influenza Virus Vaccine 2019-02-11 00:00:00 Completed [facility] Influenza Virus Vaccine 2019-02-11 00:00:00 Completed [facility] Influenza Virus Vaccine 2019-02-11 00:00:00 Completed [facility] Influenza Virus Vaccine 2019-02-11 00:00:00 Completed [facility] Influenza Virus Vaccine 2019-02-11 00:00:00 Completed [facility] Influenza Virus Vaccine 2019-02-11 00:00:00 Completed [facility] Influenza Virus Vaccine 2019-02-11 00:00:00 Completed [facility] Influenza Virus Vaccine 2019-02-11 00:00:00 Completed [facility] Influenza Virus Vaccine 2019-02-11 00:00:00 Completed [facility] Influenza Virus Vaccine 2019-02-11 00:00:00 Completed [facility] Influenza Virus Vaccine 2019-02-11 00:00:00 Completed [facility] Influenza Virus Vaccine 2019-02-11 00:00:00 Completed [facility] Influenza Virus Vaccine 2019-02-11 00:00:00 Completed [facility] Influenza Virus Vaccine 2019-02-11 00:00:00 Completed [facility] Influenza Virus Vaccine 2019-02-11 00:00:00 Completed [facility] Influenza Virus Vaccine 2019-02-11 00:00:00 Completed [facility] Influenza Virus Vaccine 2019-02-11 00:00:00 Completed [facility] Influenza Virus Vaccine 2019-02-11 00:00:00 Completed [facility] Influenza Virus Vaccine 2019-02-11 00:00:00 Completed [facility] Influenza Virus Vaccine 2019-02-11 00:00:00 Completed [facility] Influenza Virus Vaccine 2019-02-11 00:00:00 Completed [facility] Influenza Virus Vaccine 2019-02-11 00:00:00 Completed [facility] Influenza Virus Vaccine 2019-02-11 00:00:00 Completed [facility] Influenza Virus Vaccine 2019-02-11 00:00:00 Completed [facility] Influenza Virus Vaccine 2019-02-11 00:00:00 Completed [facility] Influenza Virus Vaccine 2019-02-11 00:00:00 Completed Influenza Virus Vaccine 2019-02-11 00:00:00 Completed Influenza Virus Vaccine 2019-02-11 00:00:00 Completed Influenza Virus Vaccine 2019-02-11 00:00:00 Completed Influenza Virus Vaccine 2017-12-25 00:00:00 Completed [facility] Influenza Virus Vaccine 2017-12-25 00:00:00 Completed [facility] Influenza Virus Vaccine 2017-12-25 00:00:00 Completed [facility] Influenza Virus Vaccine 2017-12-25 00:00:00 Completed [facility] Influenza Virus Vaccine 2017-12-25 00:00:00 Completed [facility] Influenza Virus Vaccine 2017-12-25 00:00:00 Completed [facility] Influenza Virus Vaccine 2017-12-25 00:00:00 Completed [facility] Influenza Virus Vaccine 2017-12-25 00:00:00 Completed [facility] Influenza Virus Vaccine 2017-12-25 00:00:00 Completed [facility] Influenza Virus Vaccine 2017-12-25 00:00:00 Completed [facility] Influenza Virus Vaccine 2017-12-25 00:00:00 Completed [facility] Influenza Virus Vaccine 2017-12-25 00:00:00 Completed [facility] Influenza Virus Vaccine 2017-12-25 00:00:00 Completed [facility] Influenza Virus Vaccine 2017-12-25 00:00:00 Completed [facility] Influenza Virus Vaccine 2017-12-25 00:00:00 Completed [facility] Influenza Virus Vaccine 2017-12-25 00:00:00 Completed [facility] Influenza Virus Vaccine 2017-12-25 00:00:00 Completed [facility] Influenza Virus Vaccine 2017-12-25 00:00:00 Completed [facility] Influenza Virus Vaccine 2017-12-25 00:00:00 Completed [facility] Influenza Virus Vaccine 2017-12-25 00:00:00 Completed [facility] Influenza Virus Vaccine 2017-12-25 00:00:00 Completed [facility] Influenza Virus Vaccine 2017-12-25 00:00:00 Completed [facility] Influenza Virus Vaccine 2017-12-25 00:00:00 Completed [facility] Influenza Virus Vaccine 2017-12-25 00:00:00 Completed [facility] Influenza Virus Vaccine 2017-12-25 00:00:00 Completed [facility] Influenza Virus Vaccine 2017-12-25 00:00:00 Completed [facility] Influenza Virus Vaccine 2017-12-25 00:00:00 Completed [facility] Influenza Virus Vaccine 2017-12-25 00:00:00 Completed [facility] Influenza Virus Vaccine 2017-12-25 00:00:00 Completed [facility] Influenza Virus Vaccine 2017-12-25 00:00:00 Completed [facility] Influenza Virus Vaccine 2017-12-25 00:00:00 Completed [facility] Influenza Virus Vaccine 2017-12-25 00:00:00 Completed [facility] Influenza Virus Vaccine 2017-12-25 00:00:00 Completed [facility] Influenza Virus Vaccine 2017-12-25 00:00:00 Completed [facility] Influenza Virus Vaccine 2017-12-25 00:00:00 Completed [facility] Influenza Virus Vaccine 2017-12-25 00:00:00 Completed [facility] Influenza Virus Vaccine 2017-12-25 00:00:00 Completed [facility] Influenza Virus Vaccine 2017-12-25 00:00:00 Completed [facility] Influenza Virus Vaccine 2017-12-25 00:00:00 Completed [facility] Influenza Virus Vaccine 2017-12-25 00:00:00 Completed [facility] Influenza Virus Vaccine 2017-12-25 00:00:00 Completed [facility] Influenza Virus Vaccine 2017-12-25 00:00:00 Completed [facility] Influenza Virus Vaccine 2017-12-25 00:00:00 Completed [facility] Influenza Virus Vaccine 2017-12-25 00:00:00 Completed [facility] Influenza Virus Vaccine 2017-12-25 00:00:00 Completed [facility] Influenza Virus Vaccine 2017-12-25 00:00:00 Completed [facility] Influenza Virus Vaccine 2017-12-25 00:00:00 Completed [facility] Influenza Virus Vaccine 2017-12-25 00:00:00 Completed [facility] Influenza Virus Vaccine 2017-12-25 00:00:00 Completed [facility] Influenza Virus Vaccine 2017-12-25 00:00:00 Completed [facility] Influenza Virus Vaccine 2017-12-25 00:00:00 Completed [facility] Influenza Virus Vaccine 2017-12-25 00:00:00 Completed [facility] Influenza Virus Vaccine 2017-12-25 00:00:00 Completed [facility] Influenza Virus Vaccine 2017-12-25 00:00:00 Completed [facility] Influenza Virus Vaccine 2017-12-25 00:00:00 Completed [facility] Influenza Virus Vaccine 2017-12-25 00:00:00 Completed [facility] Influenza Virus Vaccine 2017-12-25 00:00:00 Completed [facility] Influenza Virus Vaccine 2017-12-25 00:00:00 Completed [facility] Influenza Virus Vaccine 2017-12-25 00:00:00 Completed [facility] Influenza Virus Vaccine 2017-12-25 00:00:00 Completed [facility] Influenza Virus Vaccine 2017-12-25 00:00:00 Completed [facility] Influenza Virus Vaccine 2017-12-25 00:00:00 Completed [facility] Influenza Virus Vaccine 2017-12-25 00:00:00 Completed [facility] Influenza Virus Vaccine 2017-12-25 00:00:00 Completed [facility] Influenza Virus Vaccine 2017-12-25 00:00:00 Completed [facility] Influenza Virus Vaccine 2017-12-25 00:00:00 Completed [facility] Influenza Virus Vaccine 2017-12-25 00:00:00 Completed [facility] Influenza Virus Vaccine 2017-12-25 00:00:00 Completed [facility] Influenza Virus Vaccine 2017-12-25 00:00:00 Completed [facility] Influenza Virus Vaccine 2017-12-25 00:00:00 Completed [facility] Influenza Virus Vaccine 2017-12-25 00:00:00 Completed [facility] Influenza Virus Vaccine 2017-12-25 00:00:00 Completed [facility] Influenza Virus Vaccine 2017-12-25 00:00:00 Completed [facility] Influenza Virus Vaccine 2017-12-25 00:00:00 Completed [facility] Influenza Virus Vaccine 2017-12-25 00:00:00 Completed [facility] Influenza Virus Vaccine 2017-12-25 00:00:00 Completed [facility] Influenza Virus Vaccine 2017-12-25 00:00:00 Completed [facility] Influenza Virus Vaccine 2017-12-25 00:00:00 Completed Influenza Virus Vaccine 2017-12-25 00:00:00 Completed Influenza Virus Vaccine 2017-12-25 00:00:00 Completed Influenza Virus Vaccine 2017-12-25 00:00:00 Completed Influenza Virus Vaccine (3+ yrs) 2014-01-17 00:00:00 Completed [facility] Influenza Virus Vaccine (3+ yrs) 2014-01-17 00:00:00 Completed [facility] Influenza Virus Vaccine (3+ yrs) 2014-01-17 00:00:00 Completed [facility] Influenza Virus Vaccine (3+ yrs) 2014-01-17 00:00:00 Completed [facility] Influenza Virus Vaccine (3+ yrs) 2014-01-17 00:00:00 Completed [facility] Influenza Virus Vaccine (3+ yrs) 2014-01-17 00:00:00 Completed [facility] Influenza Virus Vaccine (3+ yrs) 2014-01-17 00:00:00 Completed [facility] Influenza Virus Vaccine (3+ yrs) 2014-01-17 00:00:00 Completed [facility] Influenza Virus Vaccine (3+ yrs) 2014-01-17 00:00:00 Completed [facility] Influenza Virus Vaccine (3+ yrs) 2014-01-17 00:00:00 Completed [facility] Influenza Virus Vaccine (3+ yrs) 2014-01-17 00:00:00 Completed [facility] Influenza Virus Vaccine (3+ yrs) 2014-01-17 00:00:00 Completed [facility] Influenza Virus Vaccine (3+ yrs) 2014-01-17 00:00:00 Completed [facility] Influenza Virus Vaccine (3+ yrs) 2014-01-17 00:00:00 Completed [facility] Influenza Virus Vaccine (3+ yrs) 2014-01-17 00:00:00 Completed [facility] Influenza Virus Vaccine (3+ yrs) 2014-01-17 00:00:00 Completed [facility] Influenza Virus Vaccine (3+ yrs) 2014-01-17 00:00:00 Completed [facility] Influenza Virus Vaccine (3+ yrs) 2014-01-17 00:00:00 Completed [facility] Influenza Virus Vaccine (3+ yrs) 2014-01-17 00:00:00 Completed [facility] Influenza Virus Vaccine (3+ yrs) 2014-01-17 00:00:00 Completed [facility] Influenza Virus Vaccine (3+ yrs) 2014-01-17 00:00:00 Completed [facility] Influenza Virus Vaccine (3+ yrs) 2014-01-17 00:00:00 Completed [facility] Influenza Virus Vaccine (3+ yrs) 2014-01-17 00:00:00 Completed [facility] Influenza Virus Vaccine (3+ yrs) 2014-01-17 00:00:00 Completed [facility] Influenza Virus Vaccine (3+ yrs) 2014-01-17 00:00:00 Completed [facility] Influenza Virus Vaccine (3+ yrs) 2014-01-17 00:00:00 Completed [facility] Influenza Virus Vaccine (3+ yrs) 2014-01-17 00:00:00 Completed [facility] Influenza Virus Vaccine (3+ yrs) 2014-01-17 00:00:00 Completed [facility] Influenza Virus Vaccine (3+ yrs) 2014-01-17 00:00:00 Completed [facility] Influenza Virus Vaccine (3+ yrs) 2014-01-17 00:00:00 Completed [facility] Influenza Virus Vaccine (3+ yrs) 2014-01-17 00:00:00 Completed [facility] Influenza Virus Vaccine (3+ yrs) 2014-01-17 00:00:00 Completed [facility] Influenza Virus Vaccine (3+ yrs) 2014-01-17 00:00:00 Completed [facility] Influenza Virus Vaccine (3+ yrs) 2014-01-17 00:00:00 Completed [facility] Influenza Virus Vaccine (3+ yrs) 2014-01-17 00:00:00 Completed [facility] Influenza Virus Vaccine (3+ yrs) 2014-01-17 00:00:00 Completed [facility] Influenza Virus Vaccine (3+ yrs) 2014-01-17 00:00:00 Completed [facility] Influenza Virus Vaccine (3+ yrs) 2014-01-17 00:00:00 Completed [facility] Influenza Virus Vaccine (3+ yrs) 2014-01-17 00:00:00 Completed [facility] Influenza Virus Vaccine (3+ yrs) 2014-01-17 00:00:00 Completed [facility] Influenza Virus Vaccine (3+ yrs) 2014-01-17 00:00:00 Completed [facility] Influenza Virus Vaccine (3+ yrs) 2014-01-17 00:00:00 Completed [facility] Influenza Virus Vaccine (3+ yrs) 2014-01-17 00:00:00 Completed [facility] Influenza Virus Vaccine (3+ yrs) 2014-01-17 00:00:00 Completed [facility] Influenza Virus Vaccine (3+ yrs) 2014-01-17 00:00:00 Completed [facility] Influenza Virus Vaccine (3+ yrs) 2014-01-17 00:00:00 Completed [facility] Influenza Virus Vaccine (3+ yrs) 2014-01-17 00:00:00 Completed [facility] Influenza Virus Vaccine (3+ yrs) 2014-01-17 00:00:00 Completed [facility] Influenza Virus Vaccine (3+ yrs) 2014-01-17 00:00:00 Completed [facility] Influenza Virus Vaccine (3+ yrs) 2014-01-17 00:00:00 Completed [facility] Influenza Virus Vaccine (3+ yrs) 2014-01-17 00:00:00 Completed [facility] Influenza Virus Vaccine (3+ yrs) 2014-01-17 00:00:00 Completed [facility] Influenza Virus Vaccine (3+ yrs) 2014-01-17 00:00:00 Completed [facility] Influenza Virus Vaccine (3+ yrs) 2014-01-17 00:00:00 Completed [facility] Influenza Virus Vaccine (3+ yrs) 2014-01-17 00:00:00 Completed [facility] Influenza Virus Vaccine (3+ yrs) 2014-01-17 00:00:00 Completed [facility] Influenza Virus Vaccine (3+ yrs) 2014-01-17 00:00:00 Completed [facility] Influenza Virus Vaccine (3+ yrs) 2014-01-17 00:00:00 Completed [facility] Influenza Virus Vaccine (3+ yrs) 2014-01-17 00:00:00 Completed [facility] Influenza Virus Vaccine (3+ yrs) 2014-01-17 00:00:00 Completed [facility] Influenza Virus Vaccine (3+ yrs) 2014-01-17 00:00:00 Completed [facility] Influenza Virus Vaccine (3+ yrs) 2014-01-17 00:00:00 Completed [facility] Influenza Virus Vaccine (3+ yrs) 2014-01-17 00:00:00 Completed [facility] Influenza Virus Vaccine (3+ yrs) 2014-01-17 00:00:00 Completed [facility] Influenza Virus Vaccine (3+ yrs) 2014-01-17 00:00:00 Completed [facility] Influenza Virus Vaccine (3+ yrs) 2014-01-17 00:00:00 Completed [facility] Influenza Virus Vaccine (3+ yrs) 2014-01-17 00:00:00 Completed [facility] Influenza Virus Vaccine (3+ yrs) 2014-01-17 00:00:00 Completed [facility] Influenza Virus Vaccine (3+ yrs) 2014-01-17 00:00:00 Completed [facility] Influenza Virus Vaccine (3+ yrs) 2014-01-17 00:00:00 Completed [facility] Influenza Virus Vaccine (3+ yrs) 2014-01-17 00:00:00 Completed [facility] Influenza Virus Vaccine (3+ yrs) 2014-01-17 00:00:00 Completed [facility] Influenza Virus Vaccine (3+ yrs) 2014-01-17 00:00:00 Completed [facility] Influenza Virus Vaccine (3+ yrs) 2014-01-17 00:00:00 Completed [facility] Influenza Virus Vaccine (3+ yrs) 2014-01-17 00:00:00 Completed [facility] Influenza Virus Vaccine (3+ yrs) 2014-01-17 00:00:00 Completed [facility] Influenza Virus Vaccine (3+ yrs) 2014-01-17 00:00:00 Completed [facility] Influenza Virus Vaccine (3+ yrs) 2014-01-17 00:00:00 Completed [facility] Influenza Virus Vaccine (3+ yrs) 2014-01-17 00:00:00 Completed [facility] Influenza Virus Vaccine (3+ yrs) 2014-01-17 00:00:00 Completed [facility] Influenza, split virus, trivalent, preservative (3+ Yrs) (Afluria) 2014-01-17 00:00:00 Completed [facility] Influenza Virus Vaccine (3+ yrs) 2013-03-15 00:00:00 Completed [facility] Influenza Virus Vaccine (3+ yrs) 2013-03-15 00:00:00 Completed [facility] Influenza Virus Vaccine (3+ yrs) 2013-03-15 00:00:00 Completed [facility] Influenza Virus Vaccine (3+ yrs) 2013-03-15 00:00:00 Completed [facility] Influenza Virus Vaccine (3+ yrs) 2013-03-15 00:00:00 Completed [facility] Influenza Virus Vaccine (3+ yrs) 2013-03-15 00:00:00 Completed [facility] Influenza Virus Vaccine (3+ yrs) 2013-03-15 00:00:00 Completed [facility] Influenza Virus Vaccine (3+ yrs) 2013-03-15 00:00:00 Completed [facility] Influenza Virus Vaccine (3+ yrs) 2013-03-15 00:00:00 Completed [facility] Influenza Virus Vaccine (3+ yrs) 2013-03-15 00:00:00 Completed [facility] Influenza Virus Vaccine (3+ yrs) 2013-03-15 00:00:00 Completed [facility] Influenza Virus Vaccine (3+ yrs) 2013-03-15 00:00:00 Completed [facility] Influenza Virus Vaccine (3+ yrs) 2013-03-15 00:00:00 Completed [facility] Influenza Virus Vaccine (3+ yrs) 2013-03-15 00:00:00 Completed [facility] Influenza Virus Vaccine (3+ yrs) 2013-03-15 00:00:00 Completed [facility] Influenza Virus Vaccine (3+ yrs) 2013-03-15 00:00:00 Completed [facility] Influenza Virus Vaccine (3+ yrs) 2013-03-15 00:00:00 Completed [facility] Influenza Virus Vaccine (3+ yrs) 2013-03-15 00:00:00 Completed [facility] Influenza Virus Vaccine (3+ yrs) 2013-03-15 00:00:00 Completed [facility] Influenza Virus Vaccine (3+ yrs) 2013-03-15 00:00:00 Completed [facility] Influenza Virus Vaccine (3+ yrs) 2013-03-15 00:00:00 Completed [facility] Influenza Virus Vaccine (3+ yrs) 2013-03-15 00:00:00 Completed [facility] Influenza Virus Vaccine (3+ yrs) 2013-03-15 00:00:00 Completed [facility] Influenza Virus Vaccine (3+ yrs) 2013-03-15 00:00:00 Completed [facility] Influenza Virus Vaccine (3+ yrs) 2013-03-15 00:00:00 Completed [facility] Influenza Virus Vaccine (3+ yrs) 2013-03-15 00:00:00 Completed [facility] Influenza Virus Vaccine (3+ yrs) 2013-03-15 00:00:00 Completed [facility] Influenza Virus Vaccine (3+ yrs) 2013-03-15 00:00:00 Completed [facility] Influenza Virus Vaccine (3+ yrs) 2013-03-15 00:00:00 Completed [facility] Influenza Virus Vaccine (3+ yrs) 2013-03-15 00:00:00 Completed [facility] Influenza Virus Vaccine (3+ yrs) 2013-03-15 00:00:00 Completed [facility] Influenza Virus Vaccine (3+ yrs) 2013-03-15 00:00:00 Completed [facility] Influenza Virus Vaccine (3+ yrs) 2013-03-15 00:00:00 Completed [facility] Influenza Virus Vaccine (3+ yrs) 2013-03-15 00:00:00 Completed [facility] Influenza Virus Vaccine (3+ yrs) 2013-03-15 00:00:00 Completed [facility] Influenza Virus Vaccine (3+ yrs) 2013-03-15 00:00:00 Completed [facility] Influenza Virus Vaccine (3+ yrs) 2013-03-15 00:00:00 Completed [facility] Influenza Virus Vaccine (3+ yrs) 2013-03-15 00:00:00 Completed [facility] Influenza Virus Vaccine (3+ yrs) 2013-03-15 00:00:00 Completed [facility] Influenza Virus Vaccine (3+ yrs) 2013-03-15 00:00:00 Completed [facility] Influenza Virus Vaccine (3+ yrs) 2013-03-15 00:00:00 Completed [facility] Influenza Virus Vaccine (3+ yrs) 2013-03-15 00:00:00 Completed [facility] Influenza Virus Vaccine (3+ yrs) 2013-03-15 00:00:00 Completed [facility] Influenza Virus Vaccine (3+ yrs) 2013-03-15 00:00:00 Completed [facility] Influenza Virus Vaccine (3+ yrs) 2013-03-15 00:00:00 Completed [facility] Influenza Virus Vaccine (3+ yrs) 2013-03-15 00:00:00 Completed [facility] Influenza Virus Vaccine (3+ yrs) 2013-03-15 00:00:00 Completed [facility] Influenza Virus Vaccine (3+ yrs) 2013-03-15 00:00:00 Completed [facility] Influenza Virus Vaccine (3+ yrs) 2013-03-15 00:00:00 Completed [facility] Influenza Virus Vaccine (3+ yrs) 2013-03-15 00:00:00 Completed [facility] Influenza Virus Vaccine (3+ yrs) 2013-03-15 00:00:00 Completed [facility] Influenza Virus Vaccine (3+ yrs) 2013-03-15 00:00:00 Completed [facility] Influenza Virus Vaccine (3+ yrs) 2013-03-15 00:00:00 Completed [facility] Influenza Virus Vaccine (3+ yrs) 2013-03-15 00:00:00 Completed [facility] Influenza Virus Vaccine (3+ yrs) 2013-03-15 00:00:00 Completed [facility] Influenza Virus Vaccine (3+ yrs) 2013-03-15 00:00:00 Completed [facility] Influenza Virus Vaccine (3+ yrs) 2013-03-15 00:00:00 Completed [facility] Influenza Virus Vaccine (3+ yrs) 2013-03-15 00:00:00 Completed [facility] Influenza Virus Vaccine (3+ yrs) 2013-03-15 00:00:00 Completed [facility] Influenza Virus Vaccine (3+ yrs) 2013-03-15 00:00:00 Completed [facility] Influenza Virus Vaccine (3+ yrs) 2013-03-15 00:00:00 Completed [facility] Influenza Virus Vaccine (3+ yrs) 2013-03-15 00:00:00 Completed [facility] Influenza Virus Vaccine (3+ yrs) 2013-03-15 00:00:00 Completed [facility] Influenza Virus Vaccine (3+ yrs) 2013-03-15 00:00:00 Completed [facility] Influenza Virus Vaccine (3+ yrs) 2013-03-15 00:00:00 Completed [facility] Influenza Virus Vaccine (3+ yrs) 2013-03-15 00:00:00 Completed [facility] Influenza Virus Vaccine (3+ yrs) 2013-03-15 00:00:00 Completed [facility] Influenza Virus Vaccine (3+ yrs) 2013-03-15 00:00:00 Completed [facility] Influenza Virus Vaccine (3+ yrs) 2013-03-15 00:00:00 Completed [facility] Influenza Virus Vaccine (3+ yrs) 2013-03-15 00:00:00 Completed [facility] Influenza Virus Vaccine (3+ yrs) 2013-03-15 00:00:00 Completed [facility] Influenza Virus Vaccine (3+ yrs) 2013-03-15 00:00:00 Completed [facility] Influenza Virus Vaccine (3+ yrs) 2013-03-15 00:00:00 Completed [facility] Influenza Virus Vaccine (3+ yrs) 2013-03-15 00:00:00 Completed [facility] Influenza Virus Vaccine (3+ yrs) 2013-03-15 00:00:00 Completed [facility] Influenza Virus Vaccine (3+ yrs) 2013-03-15 00:00:00 Completed [facility] Influenza Virus Vaccine (3+ yrs) 2013-03-15 00:00:00 Completed [facility] Influenza Virus Vaccine (3+ yrs) 2013-03-15 00:00:00 Completed [facility] Influenza Virus Vaccine (3+ yrs) 2013-03-15 00:00:00 Completed [facility] Influenza Virus Vaccine (3+ yrs) 2013-03-15 00:00:00 Completed [facility] Influenza, split virus, trivalent, preservative (3+ Yrs) (Afluria) 2013-03-15 00:00:00 Completed [facility] Influenza Virus Vaccine 2012-03-02 00:00:00 Completed [facility] Influenza Virus Vaccine 2012-03-02 00:00:00 Completed [facility] Influenza Virus Vaccine 2012-03-02 00:00:00 Completed [facility] Influenza Virus Vaccine 2012-03-02 00:00:00 Completed [facility] Influenza Virus Vaccine 2012-03-02 00:00:00 Completed [facility] Influenza Virus Vaccine 2012-03-02 00:00:00 Completed [facility] Influenza Virus Vaccine 2012-03-02 00:00:00 Completed [facility] Influenza Virus Vaccine 2012-03-02 00:00:00 Completed [facility] Influenza Virus Vaccine 2012-03-02 00:00:00 Completed [facility] Influenza Virus Vaccine 2012-03-02 00:00:00 Completed [facility] Influenza Virus Vaccine 2012-03-02 00:00:00 Completed [facility] Influenza Virus Vaccine 2012-03-02 00:00:00 Completed [facility] Influenza Virus Vaccine 2012-03-02 00:00:00 Completed [facility] Influenza Virus Vaccine 2012-03-02 00:00:00 Completed [facility] Influenza Virus Vaccine 2012-03-02 00:00:00 Completed [facility] Influenza Virus Vaccine 2012-03-02 00:00:00 Completed [facility] Influenza Virus Vaccine 2012-03-02 00:00:00 Completed [facility] Influenza Virus Vaccine 2012-03-02 00:00:00 Completed [facility] Influenza Virus Vaccine 2012-03-02 00:00:00 Completed [facility] Influenza Virus Vaccine 2012-03-02 00:00:00 Completed [facility] Influenza Virus Vaccine 2012-03-02 00:00:00 Completed [facility] Influenza Virus Vaccine 2012-03-02 00:00:00 Completed [facility] Influenza Virus Vaccine 2012-03-02 00:00:00 Completed [facility] Influenza Virus Vaccine 2012-03-02 00:00:00 Completed [facility] Influenza Virus Vaccine 2012-03-02 00:00:00 Completed [facility] Influenza Virus Vaccine 2012-03-02 00:00:00 Completed [facility] Influenza Virus Vaccine 2012-03-02 00:00:00 Completed [facility] Influenza Virus Vaccine 2012-03-02 00:00:00 Completed [facility] Influenza Virus Vaccine 2012-03-02 00:00:00 Completed [facility] Influenza Virus Vaccine 2012-03-02 00:00:00 Completed [facility] Influenza Virus Vaccine 2012-03-02 00:00:00 Completed [facility] Influenza Virus Vaccine 2012-03-02 00:00:00 Completed [facility] Influenza Virus Vaccine 2012-03-02 00:00:00 Completed [facility] Influenza Virus Vaccine 2012-03-02 00:00:00 Completed [facility] Influenza Virus Vaccine 2012-03-02 00:00:00 Completed [facility] Influenza Virus Vaccine 2012-03-02 00:00:00 Completed [facility] Influenza Virus Vaccine 2012-03-02 00:00:00 Completed [facility] Influenza Virus Vaccine 2012-03-02 00:00:00 Completed [facility] Influenza Virus Vaccine 2012-03-02 00:00:00 Completed [facility] Influenza Virus Vaccine 2012-03-02 00:00:00 Completed [facility] Influenza Virus Vaccine 2012-03-02 00:00:00 Completed [facility] Influenza Virus Vaccine 2012-03-02 00:00:00 Completed [facility] Influenza Virus Vaccine 2012-03-02 00:00:00 Completed [facility] Influenza Virus Vaccine 2012-03-02 00:00:00 Completed [facility] Influenza Virus Vaccine 2012-03-02 00:00:00 Completed [facility] Influenza Virus Vaccine 2012-03-02 00:00:00 Completed [facility] Influenza Virus Vaccine 2012-03-02 00:00:00 Completed [facility] Influenza Virus Vaccine 2012-03-02 00:00:00 Completed [facility] Influenza Virus Vaccine 2012-03-02 00:00:00 Completed [facility] Influenza Virus Vaccine 2012-03-02 00:00:00 Completed [facility] Influenza Virus Vaccine 2012-03-02 00:00:00 Completed [facility] Influenza Virus Vaccine 2012-03-02 00:00:00 Completed [facility] Influenza Virus Vaccine 2012-03-02 00:00:00 Completed [facility] Influenza Virus Vaccine 2012-03-02 00:00:00 Completed [facility] Influenza Virus Vaccine 2012-03-02 00:00:00 Completed [facility] Influenza Virus Vaccine 2012-03-02 00:00:00 Completed [facility] Influenza Virus Vaccine 2012-03-02 00:00:00 Completed [facility] Influenza Virus Vaccine 2012-03-02 00:00:00 Completed [facility] Influenza Virus Vaccine 2012-03-02 00:00:00 Completed [facility] Influenza Virus Vaccine 2012-03-02 00:00:00 Completed [facility] Influenza Virus Vaccine 2012-03-02 00:00:00 Completed [facility] Influenza Virus Vaccine 2012-03-02 00:00:00 Completed [facility] Influenza Virus Vaccine 2012-03-02 00:00:00 Completed [facility] Influenza Virus Vaccine 2012-03-02 00:00:00 Completed [facility] Influenza Virus Vaccine 2012-03-02 00:00:00 Completed [facility] Influenza Virus Vaccine 2012-03-02 00:00:00 Completed [facility] Influenza Virus Vaccine 2012-03-02 00:00:00 Completed [facility] Influenza Virus Vaccine 2012-03-02 00:00:00 Completed [facility] Influenza Virus Vaccine 2012-03-02 00:00:00 Completed [facility] Influenza Virus Vaccine 2012-03-02 00:00:00 Completed [facility] Influenza Virus Vaccine 2012-03-02 00:00:00 Completed [facility] Influenza Virus Vaccine 2012-03-02 00:00:00 Completed [facility] Influenza Virus Vaccine 2012-03-02 00:00:00 Completed [facility] Influenza Virus Vaccine 2012-03-02 00:00:00 Completed [facility] Influenza Virus Vaccine 2012-03-02 00:00:00 Completed [facility] Influenza Virus Vaccine 2012-03-02 00:00:00 Completed [facility] Influenza Virus Vaccine 2012-03-02 00:00:00 Completed [facility] Influenza Virus Vaccine 2012-03-02 00:00:00 Completed [facility] Influenza Virus Vaccine 2012-03-02 00:00:00 Completed [facility] Influenza Virus Vaccine 2012-03-02 00:00:00 Completed [facility] Influenza Virus Vaccine 2012-03-02 00:00:00 Completed [facility] Pneumococcal 7 Conjugate, PCV7 (Prevnar7) 2012-01-27 00:00:00 Completed [facility] Pneumococcal 7 Conjugate, PCV7 (Prevnar7) 2012-01-27 00:00:00 Completed [facility] Pneumococcal 7 Conjugate, PCV7 (Prevnar7) 2012-01-27 00:00:00 Completed [facility] Pneumococcal 7 Conjugate, PCV7 (Prevnar7) 2012-01-27 00:00:00 Completed [facility] Pneumococcal 7 Conjugate, PCV7 (Prevnar7) 2012-01-27 00:00:00 Completed [facility] Pneumococcal 7 Conjugate, PCV7 (Prevnar7) 2012-01-27 00:00:00 Completed [facility] Pneumococcal 7 Conjugate, PCV7 (Prevnar7) 2012-01-27 00:00:00 Completed [facility] Pneumococcal 7 Conjugate, PCV7 (Prevnar7) 2012-01-27 00:00:00 Completed [facility] Pneumococcal 7 Conjugate, PCV7 (Prevnar7) 2012-01-27 00:00:00 Completed [facility] Pneumococcal 7 Conjugate, PCV7 (Prevnar7) 2012-01-27 00:00:00 Completed [facility] Pneumococcal 7 Conjugate, PCV7 (Prevnar7) 2012-01-27 00:00:00 Completed [facility] Pneumococcal 7 Conjugate, PCV7 (Prevnar7) 2012-01-27 00:00:00 Completed [facility] Pneumococcal 7 Conjugate, PCV7 (Prevnar7) 2012-01-27 00:00:00 Completed [facility] Pneumococcal 7 Conjugate, PCV7 (Prevnar7) 2012-01-27 00:00:00 Completed [facility] Pneumococcal 7 Conjugate, PCV7 (Prevnar7) 2012-01-27 00:00:00 Completed [facility] Pneumococcal 7 Conjugate, PCV7 (Prevnar7) 2012-01-27 00:00:00 Completed [facility] Pneumococcal 7 Conjugate, PCV7 (Prevnar7) 2012-01-27 00:00:00 Completed [facility] Pneumococcal 7 Conjugate, PCV7 (Prevnar7) 2012-01-27 00:00:00 Completed [facility] Pneumococcal 7 Conjugate, PCV7 (Prevnar7) 2012-01-27 00:00:00 Completed [facility] Pneumococcal 7 Conjugate, PCV7 (Prevnar7) 2012-01-27 00:00:00 Completed [facility] Pneumococcal 7 Conjugate, PCV7 (Prevnar7) 2012-01-27 00:00:00 Completed [facility] Pneumococcal 7 Conjugate, PCV7 (Prevnar7) 2012-01-27 00:00:00 Completed [facility] Pneumococcal 7 Conjugate, PCV7 (Prevnar7) 2012-01-27 00:00:00 Completed [facility] Pneumococcal 7 Conjugate, PCV7 (Prevnar7) 2012-01-27 00:00:00 Completed [facility] Pneumococcal 7 Conjugate, PCV7 (Prevnar7) 2012-01-27 00:00:00 Completed [facility] Pneumococcal 7 Conjugate, PCV7 (Prevnar7) 2012-01-27 00:00:00 Completed [facility] Pneumococcal 7 Conjugate, PCV7 (Prevnar7) 2012-01-27 00:00:00 Completed [facility] Pneumococcal 7 Conjugate, PCV7 (Prevnar7) 2012-01-27 00:00:00 Completed [facility] Pneumococcal 7 Conjugate, PCV7 (Prevnar7) 2012-01-27 00:00:00 Completed [facility] Pneumococcal 7 Conjugate, PCV7 (Prevnar7) 2012-01-27 00:00:00 Completed [facility] Pneumococcal 7 Conjugate, PCV7 (Prevnar7) 2012-01-27 00:00:00 Completed [facility] Pneumococcal 7 Conjugate, PCV7 (Prevnar7) 2012-01-27 00:00:00 Completed [facility] Pneumococcal 7 Conjugate, PCV7 (Prevnar7) 2012-01-27 00:00:00 Completed [facility] Pneumococcal 7 Conjugate, PCV7 (Prevnar7) 2012-01-27 00:00:00 Completed [facility] Pneumococcal 7 Conjugate, PCV7 (Prevnar7) 2012-01-27 00:00:00 Completed [facility] Pneumococcal 7 Conjugate, PCV7 (Prevnar7) 2012-01-27 00:00:00 Completed [facility] Pneumococcal 7 Conjugate, PCV7 (Prevnar7) 2012-01-27 00:00:00 Completed [facility] Pneumococcal 7 Conjugate, PCV7 (Prevnar7) 2012-01-27 00:00:00 Completed [facility] Pneumococcal 7 Conjugate, PCV7 (Prevnar7) 2012-01-27 00:00:00 Completed [facility] Pneumococcal 7 Conjugate, PCV7 (Prevnar7) 2012-01-27 00:00:00 Completed [facility] Pneumococcal 7 Conjugate, PCV7 (Prevnar7) 2012-01-27 00:00:00 Completed [facility] Pneumococcal 7 Conjugate, PCV7 (Prevnar7) 2012-01-27 00:00:00 Completed [facility] Pneumococcal 7 Conjugate, PCV7 (Prevnar7) 2012-01-27 00:00:00 Completed [facility] Pneumococcal 7 Conjugate, PCV7 (Prevnar7) 2012-01-27 00:00:00 Completed [facility] Pneumococcal 7 Conjugate, PCV7 (Prevnar7) 2012-01-27 00:00:00 Completed [facility] Pneumococcal 7 Conjugate, PCV7 (Prevnar7) 2012-01-27 00:00:00 Completed [facility] Pneumococcal 7 Conjugate, PCV7 (Prevnar7) 2012-01-27 00:00:00 Completed [facility] Pneumococcal 7 Conjugate, PCV7 (Prevnar7) 2012-01-27 00:00:00 Completed [facility] Pneumococcal 7 Conjugate, PCV7 (Prevnar7) 2012-01-27 00:00:00 Completed [facility] Pneumococcal 7 Conjugate, PCV7 (Prevnar7) 2012-01-27 00:00:00 Completed [facility] Pneumococcal 7 Conjugate, PCV7 (Prevnar7) 2012-01-27 00:00:00 Completed [facility] Pneumococcal 7 Conjugate, PCV7 (Prevnar7) 2012-01-27 00:00:00 Completed [facility] Pneumococcal 7 Conjugate, PCV7 (Prevnar7) 2012-01-27 00:00:00 Completed [facility] Pneumococcal 7 Conjugate, PCV7 (Prevnar7) 2012-01-27 00:00:00 Completed [facility] Pneumococcal 7 Conjugate, PCV7 (Prevnar7) 2012-01-27 00:00:00 Completed [facility] Pneumococcal 7 Conjugate, PCV7 (Prevnar7) 2012-01-27 00:00:00 Completed [facility] Pneumococcal 7 Conjugate, PCV7 (Prevnar7) 2012-01-27 00:00:00 Completed [facility] Pneumococcal 7 Conjugate, PCV7 (Prevnar7) 2012-01-27 00:00:00 Completed [facility] Pneumococcal 7 Conjugate, PCV7 (Prevnar7) 2012-01-27 00:00:00 Completed [facility] Pneumococcal 7 Conjugate, PCV7 (Prevnar7) 2012-01-27 00:00:00 Completed [facility] Pneumococcal 7 Conjugate, PCV7 (Prevnar7) 2012-01-27 00:00:00 Completed [facility] Pneumococcal 7 Conjugate, PCV7 (Prevnar7) 2012-01-27 00:00:00 Completed [facility] Pneumococcal 7 Conjugate, PCV7 (Prevnar7) 2012-01-27 00:00:00 Completed [facility] Pneumococcal 7 Conjugate, PCV7 (Prevnar7) 2012-01-27 00:00:00 Completed [facility] Pneumococcal 7 Conjugate, PCV7 (Prevnar7) 2012-01-27 00:00:00 Completed [facility] Pneumococcal 7 Conjugate, PCV7 (Prevnar7) 2012-01-27 00:00:00 Completed [facility] Pneumococcal 7 Conjugate, PCV7 (Prevnar7) 2012-01-27 00:00:00 Completed [facility] Pneumococcal 7 Conjugate, PCV7 (Prevnar7) 2012-01-27 00:00:00 Completed [facility] Pneumococcal 7 Conjugate, PCV7 (Prevnar7) 2012-01-27 00:00:00 Completed [facility] Pneumococcal 7 Conjugate, PCV7 (Prevnar7) 2012-01-27 00:00:00 Completed [facility] Pneumococcal 7 Conjugate, PCV7 (Prevnar7) 2012-01-27 00:00:00 Completed [facility] Pneumococcal 7 Conjugate, PCV7 (Prevnar7) 2012-01-27 00:00:00 Completed [facility] Pneumococcal 7 Conjugate, PCV7 (Prevnar7) 2012-01-27 00:00:00 Completed [facility] Pneumococcal 7 Conjugate, PCV7 (Prevnar7) 2012-01-27 00:00:00 Completed [facility] Pneumococcal 7 Conjugate, PCV7 (Prevnar7) 2012-01-27 00:00:00 Completed [facility] Pneumococcal 7 Conjugate, PCV7 (Prevnar7) 2012-01-27 00:00:00 Completed [facility] Pneumococcal 7 Conjugate, PCV7 (Prevnar7) 2012-01-27 00:00:00 Completed [facility] Pneumococcal 7 Conjugate, PCV7 (Prevnar7) 2012-01-27 00:00:00 Completed [facility] Pneumococcal 7 Conjugate, PCV7 (Prevnar7) 2012-01-27 00:00:00 Completed [facility] Pneumococcal 7 Conjugate, PCV7 (Prevnar7) 2012-01-27 00:00:00 Completed [facility] Pneumococcal 7 Conjugate, PCV7 (Prevnar7) 2012-01-27 00:00:00 Completed [facility] Pneumococcal 7 Conjugate, PCV7 (Prevnar7) Unknown Completed [facility] Influenza Virus Vaccine (3+ yrs) Unknown Completed [facility] Influenza Virus Vaccine Unknown Completed [facility] Influenza Virus Vaccine Quad IM 3+ YRS Unknown Completed [facility] SARS-COV-2 COVID-19 MODERNA 12+ YRS VACCINE Unknown Completed [facility] Influenza Virus Vaccine,quad Im,preserve Free 65+ (FLUAD) Unknown Completed [facility] Pneumococcal 13 Conjugate, PCV13 (Prevnar 13) Unknown Completed [facility] SARS-COV-2 COVID-19 MODERNA 0.25ML BOOSTER VACCINE Unknown Completed [facility] SARS-COV-2 COVID-19 VACCINE 12 YRS+, BIVALENT 0.5ML, IM, (MODERNA-BLUE TOP) Unknown Completed [facility] Pneumococcal 20 Conjugate, PCV20 (Prevnar 20) Unknown Completed [facility] Pneumococcal 7 Conjugate, PCV7 (Prevnar7) Unknown Completed [facility] Influenza Virus Vaccine (3+ yrs) Unknown Completed [facility] Influenza Virus Vaccine Unknown Completed [facility] Influenza Virus Vaccine Quad IM 3+ YRS Unknown Completed [facility] SARS-COV-2 COVID-19 MODERNA 12+ YRS VACCINE Unknown Completed [facility] Influenza Virus Vaccine,quad Im,preserve Free 65+ (FLUAD) Unknown Completed [facility] Pneumococcal 13 Conjugate, PCV13 (Prevnar 13) Unknown Completed [facility] SARS-COV-2 COVID-19 MODERNA 0.25ML BOOSTER VACCINE Unknown Completed [facility] SARS-COV-2 COVID-19 VACCINE 12 YRS+, BIVALENT 0.5ML, IM, (MODERNA-BLUE TOP) Unknown Completed [facility] Pneumococcal 20 Conjugate, PCV20 (Prevnar 20) Unknown Completed [facility] Influenza Virus Vaccine Unknown Completed [facility] Influenza Virus Vaccine Quad IM 3+ YRS Unknown Completed [facility] SARS-COV-2 COVID-19 MODERNA 12+ YRS VACCINE Unknown Completed [facility] Influenza Virus Vaccine,quad Im,preserve Free 65+ (FLUAD) Unknown Completed [facility] Pneumococcal 13 Conjugate, PCV13 (Prevnar 13) Unknown Completed [facility] SARS-COV-2 COVID-19 MODERNA 0.25ML BOOSTER VACCINE Unknown Completed [facility] SARS-COV-2 COVID-19 VACCINE 12 YRS+, BIVALENT 0.5ML, IM, (MODERNA-BLUE TOP) Unknown Completed [facility] Pneumococcal 20 Conjugate, PCV20 (Prevnar 20) Unknown Completed [facility] Pneumococcal 7 Conjugate, PCV7 (Prevnar7) Unknown Completed [facility] Influenza Virus Vaccine (3+ yrs) Unknown Completed [facility] Influenza Virus Vaccine Unknown Completed [facility] Influenza Virus Vaccine Quad IM 3+ YRS Unknown Completed [facility] SARS-COV-2 COVID-19 MODERNA 12+ YRS VACCINE Unknown Completed [facility] Influenza Virus Vaccine,quad Im,preserve Free 65+ (FLUAD) Unknown Completed [facility] Pneumococcal 13 Conjugate, PCV13 (Prevnar 13) Unknown Completed [facility] SARS-COV-2 COVID-19 MODERNA 0.25ML BOOSTER VACCINE Unknown Completed [facility] SARS-COV-2 COVID-19 VACCINE 12 YRS+, BIVALENT 0.5ML, IM, (MODERNA-BLUE TOP) Unknown Completed [facility] Pneumococcal 20 Conjugate, PCV20 (Prevnar 20) Unknown Completed [facility] Pneumococcal 7 Conjugate, PCV7 (Prevnar7) Unknown Completed [facility] Influenza Virus Vaccine Unknown Completed [facility] Influenza Virus Vaccine Quad IM 3+ YRS Unknown Completed [facility] SARS-COV-2 COVID-19 MODERNA 12+ YRS VACCINE Unknown Completed [facility] Influenza Virus Vaccine,quad Im,preserve Free 65+ (FLUAD) Unknown Completed [facility] Pneumococcal 13 Conjugate, PCV13 (Prevnar 13) Unknown Completed [facility] SARS-COV-2 COVID-19 MODERNA 0.25ML BOOSTER VACCINE Unknown Completed [facility] SARS-COV-2 COVID-19 VACCINE 12 YRS+, BIVALENT 0.5ML, IM, (MODERNA-BLUE TOP) Unknown Completed [facility] Pneumococcal 20 Conjugate, PCV20 (Prevnar 20) Unknown Completed [facility] Influenza Virus Vaccine (3+ yrs) Unknown Completed [facility] Pneumococcal 7 Conjugate, PCV7 (Prevnar7) Unknown Completed [facility] Influenza Virus Vaccine (3+ yrs) Unknown Completed [facility] Pneumococcal 7 Conjugate, PCV7 (Prevnar7) Unknown Completed [facility] Influenza Virus Vaccine (3+ yrs) Unknown Completed [facility] Influenza Virus Vaccine Unknown Completed [facility] Influenza Virus Vaccine Quad IM 3+ YRS Unknown Completed [facility] SARS-COV-2 COVID-19 MODERNA 12+ YRS VACCINE Unknown Completed [facility] Influenza Virus Vaccine,quad Im,preserve Free 65+ (FLUAD) Unknown Completed [facility] Pneumococcal 13 Conjugate, PCV13 (Prevnar 13) Unknown Completed [facility] SARS-COV-2 COVID-19 MODERNA 0.25ML BOOSTER VACCINE Unknown Completed [facility] SARS-COV-2 COVID-19 VACCINE 12 YRS+, BIVALENT 0.5ML, IM, (MODERNA-BLUE TOP) Unknown Completed [facility] Pneumococcal 20 Conjugate, PCV20 (Prevnar 20) Unknown Completed [facility] Pneumococcal 7 Conjugate, PCV7 (Prevnar7) Unknown Completed [facility] Influenza Virus Vaccine (3+ yrs) Unknown Completed [facility] Influenza Virus Vaccine Unknown Completed [facility] Influenza Virus Vaccine Quad IM 3+ YRS Unknown Completed [facility] SARS-COV-2 COVID-19 MODERNA 12+ YRS VACCINE Unknown Completed [facility] Influenza Virus Vaccine,quad Im,preserve Free 65+ (FLUAD) Unknown Completed [facility] Pneumococcal 13 Conjugate, PCV13 (Prevnar 13) Unknown Completed [facility] SARS-COV-2 COVID-19 MODERNA 0.25ML BOOSTER VACCINE Unknown Completed [facility] SARS-COV-2 COVID-19 VACCINE 12 YRS+, BIVALENT 0.5ML, IM, (MODERNA-BLUE TOP) Unknown Completed [facility] Pneumococcal 20 Conjugate, PCV20 (Prevnar 20) Unknown Completed [facility] Pneumococcal 7 Conjugate, PCV7 (Prevnar7) Unknown Completed [facility] Influenza Virus Vaccine Quad IM 3+ YRS Unknown Completed [facility] Pneumococcal 13 Conjugate, PCV13 (Prevnar 13) Unknown Completed [facility] SARS-COV-2 COVID-19 MODERNA 0.25ML BOOSTER VACCINE Unknown Completed [facility] SARS-COV-2 COVID-19 VACCINE 12 YRS+, BIVALENT 0.5ML, IM, (MODERNA-BLUE TOP) Unknown Completed [facility] Pneumococcal 20 Conjugate, PCV20 (Prevnar 20) Unknown Completed [facility] Influenza Virus Vaccine Unknown Completed [facility] Influenza Virus Vaccine (3+ yrs) Unknown Completed [facility] SARS-COV-2 COVID-19 MODERNA 12+ YRS VACCINE Unknown Completed [facility] Influenza Virus Vaccine,quad Im,preserve Free 65+ (FLUAD) Unknown Completed [facility] Influenza Virus Vaccine Unknown Completed [facility] Pneumococcal 7 Conjugate, PCV7 (Prevnar7) Unknown Completed [facility] Influenza Virus Vaccine (3+ yrs) Unknown Completed [facility] Influenza Virus Vaccine Quad IM 3+ YRS Unknown Completed [facility] SARS-COV-2 COVID-19 MODERNA 12+ YRS VACCINE Unknown Completed [facility] Influenza Virus Vaccine,quad Im,preserve Free 65+ (FLUAD) Unknown Completed [facility] Pneumococcal 13 Conjugate, PCV13 (Prevnar 13) Unknown Completed [facility] SARS-COV-2 COVID-19 MODERNA 0.25ML BOOSTER VACCINE Unknown Completed [facility] SARS-COV-2 COVID-19 VACCINE 12 YRS+, BIVALENT 0.5ML, IM, (MODERNA-BLUE TOP) Unknown Completed [facility] Pneumococcal 20 Conjugate, PCV20 (Prevnar 20) Unknown Completed [facility] Influenza Virus Vaccine Unknown Completed [facility] Pneumococcal 7 Conjugate, PCV7 (Prevnar7) Unknown Completed [facility] Influenza Virus Vaccine (3+ yrs) Unknown Completed [facility] Influenza Virus Vaccine Quad IM 3+ YRS Unknown Completed [facility] SARS-COV-2 COVID-19 MODERNA 12+ YRS VACCINE Unknown Completed [facility] Influenza Virus Vaccine,quad Im,preserve Free 65+ (FLUAD) Unknown Completed [facility] Pneumococcal 13 Conjugate, PCV13 (Prevnar 13) Unknown Completed [facility] SARS-COV-2 COVID-19 MODERNA 0.25ML BOOSTER VACCINE Unknown Completed [facility] SARS-COV-2 COVID-19 VACCINE 12 YRS+, BIVALENT 0.5ML, IM, (MODERNA-BLUE TOP) Unknown Completed [facility] Pneumococcal 20 Conjugate, PCV20 (Prevnar 20) Unknown Completed [facility] Influenza Virus Vaccine Unknown Completed [facility] Pneumococcal 7 Conjugate, PCV7 (Prevnar7) Unknown Completed [facility] Influenza Virus Vaccine (3+ yrs) Unknown Completed [facility] Influenza Virus Vaccine Quad IM 3+ YRS Unknown Completed [facility] SARS-COV-2 COVID-19 MODERNA 12+ YRS VACCINE Unknown Completed [facility] Influenza Virus Vaccine,quad Im,preserve Free 65+ (FLUAD) Unknown Completed [facility] Pneumococcal 13 Conjugate, PCV13 (Prevnar 13) Unknown Completed [facility] SARS-COV-2 COVID-19 MODERNA 0.25ML BOOSTER VACCINE Unknown Completed [facility] SARS-COV-2 COVID-19 VACCINE 12 YRS+, BIVALENT 0.5ML, IM, (MODERNA-BLUE TOP) Unknown Completed [facility] Pneumococcal 20 Conjugate, PCV20 (Prevnar 20) Unknown Completed [facility] Influenza Virus Vaccine Unknown Completed [facility] Pneumococcal 7 Conjugate, PCV7 (Prevnar7) Unknown Completed [facility] Influenza Virus Vaccine (3+ yrs) Unknown Completed [facility] Influenza Virus Vaccine Quad IM 3+ YRS Unknown Completed [facility] SARS-COV-2 COVID-19 MODERNA 12+ YRS VACCINE Unknown Completed [facility] Influenza Virus Vaccine,quad Im,preserve Free 65+ (FLUAD) Unknown Completed [facility] Pneumococcal 13 Conjugate, PCV13 (Prevnar 13) Unknown Completed [facility] SARS-COV-2 COVID-19 MODERNA 0.25ML BOOSTER VACCINE Unknown Completed [facility] SARS-COV-2 COVID-19 VACCINE 12 YRS+, BIVALENT 0.5ML, IM, (MODERNA-BLUE TOP) Unknown Completed [facility] Pneumococcal 20 Conjugate, PCV20 (Prevnar 20) Unknown Completed [facility] Influenza Virus Vaccine Unknown Completed [facility] Pneumococcal 7 Conjugate, PCV7 (Prevnar7) Unknown Completed [facility] Influenza Virus Vaccine (3+ yrs) Unknown Completed [facility] Influenza Virus Vaccine Quad IM 3+ YRS Unknown Completed [facility] SARS-COV-2 COVID-19 MODERNA 12+ YRS VACCINE Unknown Completed [facility] Influenza Virus Vaccine,quad Im,preserve Free 65+ (FLUAD) Unknown Completed [facility] Pneumococcal 13 Conjugate, PCV13 (Prevnar 13) Unknown Completed [facility] SARS-COV-2 COVID-19 MODERNA 0.25ML BOOSTER VACCINE Unknown Completed [facility] SARS-COV-2 COVID-19 VACCINE 12 YRS+, BIVALENT 0.5ML, IM, (MODERNA-BLUE TOP) Unknown Completed [facility] Pneumococcal 20 Conjugate, PCV20 (Prevnar 20) Unknown Completed [facility] Influenza Virus Vaccine Unknown Completed [facility] Pneumococcal 7 Conjugate, PCV7 (Prevnar7) Unknown Completed [facility] Influenza Virus Vaccine (3+ yrs) Unknown Completed [facility] Influenza Virus Vaccine Quad IM 3+ YRS Unknown Completed [facility] SARS-COV-2 COVID-19 MODERNA 12+ YRS VACCINE Unknown Completed [facility] Influenza Virus Vaccine,quad Im,preserve Free 65+ (FLUAD) Unknown Completed [facility] Pneumococcal 13 Conjugate, PCV13 (Prevnar 13) Unknown Completed [facility] SARS-COV-2 COVID-19 MODERNA 0.25ML BOOSTER VACCINE Unknown Completed [facility] SARS-COV-2 COVID-19 VACCINE 12 YRS+, BIVALENT 0.5ML, IM, (MODERNA-BLUE TOP) Unknown Completed [facility] Pneumococcal 20 Conjugate, PCV20 (Prevnar 20) Unknown Completed [facility] Influenza Virus Vaccine Unknown Completed [facility] Pneumococcal 7 Conjugate, PCV7 (Prevnar7) Unknown Completed [facility] Influenza Virus Vaccine (3+ yrs) Unknown Completed [facility] Influenza Virus Vaccine Quad IM 3+ YRS Unknown Completed [facility] SARS-COV-2 COVID-19 MODERNA 12+ YRS VACCINE Unknown Completed [facility] Influenza Virus Vaccine,quad Im,preserve Free 65+ (FLUAD) Unknown Completed [facility] Pneumococcal 13 Conjugate, PCV13 (Prevnar 13) Unknown Completed [facility] SARS-COV-2 COVID-19 MODERNA 0.25ML BOOSTER VACCINE Unknown Completed [facility] SARS-COV-2 COVID-19 VACCINE 12 YRS+, BIVALENT 0.5ML, IM, (MODERNA-BLUE TOP) Unknown Completed [facility] Pneumococcal 20 Conjugate, PCV20 (Prevnar 20) Unknown Completed [facility] Influenza Virus Vaccine Unknown Completed [facility] Pneumococcal 7 Conjugate, PCV7 (Prevnar7) Unknown Completed [facility] Influenza Virus Vaccine (3+ yrs) Unknown Completed [facility] Influenza Virus Vaccine Quad IM 3+ YRS Unknown Completed [facility] SARS-COV-2 COVID-19 MODERNA 12+ YRS VACCINE Unknown Completed [facility] Influenza Virus Vaccine,quad Im,preserve Free 65+ (FLUAD) Unknown Completed [facility] Pneumococcal 13 Conjugate, PCV13 (Prevnar 13) Unknown Completed [facility] SARS-COV-2 COVID-19 MODERNA 0.25ML BOOSTER VACCINE Unknown Completed [facility] SARS-COV-2 COVID-19 VACCINE 12 YRS+, BIVALENT 0.5ML, IM, (MODERNA-BLUE TOP) Unknown Completed [facility] Pneumococcal 20 Conjugate, PCV20 (Prevnar 20) Unknown Completed [facility] Influenza Virus Vaccine Unknown Completed [facility] Pneumococcal 7 Conjugate, PCV7 (Prevnar7) Unknown Completed [facility] Influenza Virus Vaccine (3+ yrs) Unknown Completed [facility] Influenza Virus Vaccine Quad IM 3+ YRS Unknown Completed [facility] SARS-COV-2 COVID-19 MODERNA 12+ YRS VACCINE Unknown Completed [facility] Influenza Virus Vaccine,quad Im,preserve Free 65+ (FLUAD) Unknown Completed [facility] Pneumococcal 13 Conjugate, PCV13 (Prevnar 13) Unknown Completed [facility] SARS-COV-2 COVID-19 MODERNA 0.25ML BOOSTER VACCINE Unknown Completed [facility] SARS-COV-2 COVID-19 VACCINE 12 YRS+, BIVALENT 0.5ML, IM, (MODERNA-BLUE TOP) Unknown Completed [facility] Pneumococcal 20 Conjugate, PCV20 (Prevnar 20) Unknown Completed [facility] Influenza Virus Vaccine Unknown Completed [facility] Pneumococcal 7 Conjugate, PCV7 (Prevnar7) Unknown Completed [facility] Influenza Virus Vaccine (3+ yrs) Unknown Completed [facility] Influenza Virus Vaccine Quad IM 3+ YRS Unknown Completed [facility] SARS-COV-2 COVID-19 MODERNA 12+ YRS VACCINE Unknown Completed [facility] Influenza Virus Vaccine,quad Im,preserve Free 65+ (FLUAD) Unknown Completed [facility] Pneumococcal 13 Conjugate, PCV13 (Prevnar 13) Unknown Completed [facility] SARS-COV-2 COVID-19 MODERNA 0.25ML BOOSTER VACCINE Unknown Completed [facility] SARS-COV-2 COVID-19 VACCINE 12 YRS+, BIVALENT 0.5ML, IM, (MODERNA-BLUE TOP) Unknown Completed [facility] Pneumococcal 20 Conjugate, PCV20 (Prevnar 20) Unknown Completed [facility] Pneumococcal 7 Conjugate, PCV7 (Prevnar7) Unknown Completed [facility] Influenza Virus Vaccine Quad IM 3+ YRS Unknown Completed [facility] Pneumococcal 13 Conjugate, PCV13 (Prevnar 13) Unknown Completed [facility] SARS-COV-2 COVID-19 MODERNA 0.25ML BOOSTER VACCINE Unknown Completed [facility] SARS-COV-2 COVID-19 VACCINE 12 YRS+, BIVALENT 0.5ML, IM, (MODERNA-BLUE TOP) Unknown Completed [facility] Pneumococcal 20 Conjugate, PCV20 (Prevnar 20) Unknown Completed [facility] Influenza Virus Vaccine Unknown Completed [facility] Influenza Virus Vaccine (3+ yrs) Unknown Completed [facility] SARS-COV-2 COVID-19 MODERNA 12+ YRS VACCINE Unknown Completed [facility] Influenza Virus Vaccine,quad Im,preserve Free 65+ (FLUAD) Unknown Completed [facility] Influenza Virus Vaccine Unknown Completed [facility] Pneumococcal 7 Conjugate, PCV7 (Prevnar7) Unknown Completed [facility] Influenza Virus Vaccine (3+ yrs) Unknown Completed [facility] Influenza Virus Vaccine Quad IM 3+ YRS Unknown Completed [facility] SARS-COV-2 COVID-19 MODERNA 12+ YRS VACCINE Unknown Completed [facility] Influenza Virus Vaccine,quad Im,preserve Free 65+ (FLUAD) Unknown Completed [facility] [place] Pneumococcal 13 Conjugate, PCV13 (Prevnar 13) Unknown Completed [facility] [place] SARS-COV-2 COVID-19 MODERNA 0.25ML BOOSTER VACCINE Unknown Completed [facility] SARS-COV-2 COVID-19 VACCINE 12 YRS+, BIVALENT 0.5ML, IM, (MODERNA-BLUE TOP) Unknown Completed [facility] Pneumococcal 20 Conjugate, PCV20 (Prevnar 20) Unknown Completed [facility] [place] Influenza Virus Vaccine Unknown Completed [facility] [place] Pneumococcal 7 Conjugate, PCV7 (Prevnar7) Unknown Completed [facility] [place] Influenza Virus Vaccine (3+ yrs) Unknown Completed [facility] [place] Influenza Virus Vaccine Quad IM 3+ YRS Unknown Completed [facility] [place] SARS-COV-2 COVID-19 MODERNA 12+ YRS VACCINE Unknown Completed [facility] [place] Influenza Virus Vaccine,quad Im,preserve Free 65+ (FLUAD) Unknown Completed [facility] [place] Pneumococcal 13 Conjugate, PCV13 (Prevnar 13) Unknown Completed [facility] [place] SARS-COV-2 COVID-19 MODERNA 0.25ML BOOSTER VACCINE Unknown Completed [facility] SARS-COV-2 COVID-19 VACCINE 12 YRS+, BIVALENT 0.5ML, IM, (MODERNA-BLUE TOP) Unknown Completed [facility] Pneumococcal 20 Conjugate, PCV20 (Prevnar 20) Unknown Completed [facility] [place] Pneumococcal 7 Conjugate, PCV7 (Prevnar7) Unknown Completed [facility] [place] Influenza Virus Vaccine Quad IM 3+ YRS Unknown Completed [facility] [place] Pneumococcal 13 Conjugate, PCV13 (Prevnar 13) Unknown Completed [facility] [place] SARS-COV-2 COVID-19 MODERNA 0.25ML BOOSTER VACCINE Unknown Completed [facility] SARS-COV-2 COVID-19 VACCINE 12 YRS+, BIVALENT 0.5ML, IM, (MODERNA-BLUE TOP) Unknown Completed [facility] Pneumococcal 20 Conjugate, PCV20 (Prevnar 20) Unknown Completed [facility] [place] Influenza Virus Vaccine Unknown Completed [facility] [place] Influenza Virus Vaccine (3+ yrs) Unknown Completed [facility] [place] SARS-COV-2 COVID-19 MODERNA 12+ YRS VACCINE Unknown Completed [facility] [place] Influenza Virus Vaccine,quad Im,preserve Free 65+ (FLUAD) Unknown Completed [facility] [place] Influenza Virus Vaccine Unknown Completed [facility] [place] Pneumococcal 7 Conjugate, PCV7 (Prevnar7) Unknown Completed [facility] [place] Influenza Virus Vaccine (3+ yrs) Unknown Completed [facility] [place] Influenza Virus Vaccine Quad IM 3+ YRS Unknown Completed [facility] [place] SARS-COV-2 COVID-19 MODERNA 12+ YRS VACCINE Unknown Completed [facility] [place] Influenza Virus Vaccine,quad Im,preserve Free 65+ (FLUAD) Unknown Completed [facility] [place] Pneumococcal 13 Conjugate, PCV13 (Prevnar 13) Unknown Completed [facility] [place] SARS-COV-2 COVID-19 MODERNA 0.25ML BOOSTER VACCINE Unknown Completed [facility] SARS-COV-2 COVID-19 VACCINE 12 YRS+, BIVALENT 0.5ML, IM, (MODERNA-BLUE TOP) Unknown Completed [facility] Pneumococcal 20 Conjugate, PCV20 (Prevnar 20) Unknown Completed [facility] [place] Influenza Virus Vaccine Unknown Completed [facility] [place] Pneumococcal 7 Conjugate, PCV7 (Prevnar7) Unknown Completed [facility] [place] Influenza Virus Vaccine (3+ yrs) Unknown Completed [facility] [place] Influenza Virus Vaccine Quad IM 3+ YRS Unknown Completed [facility] [place] SARS-COV-2 COVID-19 MODERNA 12+ YRS VACCINE Unknown Completed [facility] [place] Influenza Virus Vaccine,quad Im,preserve Free 65+ (FLUAD) Unknown Completed [facility] [place] Pneumococcal 13 Conjugate, PCV13 (Prevnar 13) Unknown Completed [facility] [place] SARS-COV-2 COVID-19 MODERNA 0.25ML BOOSTER VACCINE Unknown Completed [facility] SARS-COV-2 COVID-19 VACCINE 12 YRS+, BIVALENT 0.5ML, IM, (MODERNA-BLUE TOP) Unknown Completed [facility] Pneumococcal 20 Conjugate, PCV20 (Prevnar 20) Unknown Completed [facility] [place] Influenza Virus Vaccine Unknown Completed [facility] [place] Pneumococcal 7 Conjugate, PCV7 (Prevnar7) Unknown Completed [facility] [place] Influenza Virus Vaccine (3+ yrs) Unknown Completed [facility] [place] Influenza Virus Vaccine Quad IM 3+ YRS Unknown Completed [facility] [place] SARS-COV-2 COVID-19 MODERNA 12+ YRS VACCINE Unknown Completed [facility] [place] Influenza Virus Vaccine,quad Im,preserve Free 65+ (FLUAD) Unknown Completed [facility] [place] Pneumococcal 13 Conjugate, PCV13 (Prevnar 13) Unknown Completed [facility] [place] SARS-COV-2 COVID-19 MODERNA 0.25ML BOOSTER VACCINE Unknown Completed [facility] SARS-COV-2 COVID-19 VACCINE 12 YRS+, BIVALENT 0.5ML, IM, (MODERNA-BLUE TOP) Unknown Completed [facility] Pneumococcal 20 Conjugate, PCV20 (Prevnar 20) Unknown Completed [facility] [place] Pneumococcal 7 Conjugate, PCV7 (Prevnar7) Unknown Completed [facility] [place] Influenza Virus Vaccine Quad IM 3+ YRS Unknown Completed [facility] [place] Pneumococcal 13 Conjugate, PCV13 (Prevnar 13) Unknown Completed [facility] [place] SARS-COV-2 COVID-19 MODERNA 0.25ML BOOSTER VACCINE Unknown Completed [facility] SARS-COV-2 COVID-19 VACCINE 12 YRS+, BIVALENT 0.5ML, IM, (MODERNA-BLUE TOP) Unknown Completed [facility] Pneumococcal 20 Conjugate, PCV20 (Prevnar 20) Unknown Completed [facility] [place] Influenza Virus Vaccine Unknown Completed [facility] [place] Influenza Virus Vaccine (3+ yrs) Unknown Completed [facility] [place] SARS-COV-2 COVID-19 MODERNA 12+ YRS VACCINE Unknown Completed [facility] [place] Influenza Virus Vaccine,quad Im,preserve Free 65+ (FLUAD) Unknown Completed [facility] [place] Influenza Virus Vaccine Unknown Completed [facility] [place] Pneumococcal 7 Conjugate, PCV7 (Prevnar7) Unknown Completed [facility] [place] Influenza Virus Vaccine (3+ yrs) Unknown Completed [facility] [place] Influenza Virus Vaccine Quad IM 3+ YRS Unknown Completed [facility] [place] SARS-COV-2 COVID-19 MODERNA 12+ YRS VACCINE Unknown Completed [facility] [place] Influenza Virus Vaccine,quad Im,preserve Free 65+ (FLUAD) Unknown Completed [facility] [place] Pneumococcal 13 Conjugate, PCV13 (Prevnar 13) Unknown Completed [facility] [place] SARS-COV-2 COVID-19 MODERNA 0.25ML BOOSTER VACCINE Unknown Completed [facility] SARS-COV-2 COVID-19 VACCINE 12 YRS+, BIVALENT 0.5ML, IM, (MODERNA-BLUE TOP) Unknown Completed [facility] Pneumococcal 20 Conjugate, PCV20 (Prevnar 20) Unknown Completed [facility] [place] Influenza Virus Vaccine Unknown Completed [facility] [place] Pneumococcal 7 Conjugate, PCV7 (Prevnar7) Unknown Completed [facility] [place] Influenza Virus Vaccine (3+ yrs) Unknown Completed [facility] [place] Influenza Virus Vaccine Quad IM 3+ YRS Unknown Completed [facility] [place] SARS-COV-2 COVID-19 MODERNA 12+ YRS VACCINE Unknown Completed [facility] [place] Influenza Virus Vaccine,quad Im,preserve Free 65+ (FLUAD) Unknown Completed [facility] [place] Pneumococcal 13 Conjugate, PCV13 (Prevnar 13) Unknown Completed [facility] [place] SARS-COV-2 COVID-19 MODERNA 0.25ML BOOSTER VACCINE Unknown Completed [facility] SARS-COV-2 COVID-19 VACCINE 12 YRS+, BIVALENT 0.5ML, IM, (MODERNA-BLUE TOP) Unknown Completed [facility] Pneumococcal 20 Conjugate, PCV20 (Prevnar 20) Unknown Completed [facility] [place] Influenza Virus Vaccine Unknown Completed [facility] [place] Pneumococcal 7 Conjugate, PCV7 (Prevnar7) Unknown Completed [facility] [place] Influenza Virus Vaccine (3+ yrs) Unknown Completed [facility] [place] Influenza Virus Vaccine Quad IM 3+ YRS Unknown Completed [facility] [place] SARS-COV-2 COVID-19 MODERNA 12+ YRS VACCINE Unknown Completed [facility] [place] Influenza Virus Vaccine,quad Im,preserve Free 65+ (FLUAD) Unknown Completed [facility] [place] Pneumococcal 13 Conjugate, PCV13 (Prevnar 13) Unknown Completed [facility] [place] Influenza Virus Vaccine Unknown Completed [facility] [place] Pneumococcal 7 Conjugate, PCV7 (Prevnar7) Unknown Completed [facility] [place] Influenza Virus Vaccine (3+ yrs) Unknown Completed [facility] [place] Influenza Virus Vaccine Quad IM 3+ YRS Unknown Completed [facility] [place] SARS-COV-2 COVID-19 MODERNA 12+ YRS VACCINE Unknown Completed [facility] [place] Influenza Virus Vaccine,quad Im,preserve Free 65+ (FLUAD) Unknown Completed [facility] [place] Pneumococcal 13 Conjugate, PCV13 (Prevnar 13) Unknown Completed [facility] [place] SARS-COV-2 COVID-19 MODERNA 0.25ML BOOSTER VACCINE Unknown Completed [facility] SARS-COV-2 COVID-19 VACCINE 12 YRS+, BIVALENT 0.5ML, IM, (MODERNA-BLUE TOP) Unknown Completed [facility] Pneumococcal 20 Conjugate, PCV20 (Prevnar 20) Unknown Completed [facility] [place] Influenza Virus Vaccine Unknown Completed [facility] [place] Pneumococcal 7 Conjugate, PCV7 (Prevnar7) Unknown Completed [facility] [place] Influenza Virus Vaccine (3+ yrs) Unknown Completed [facility] [place] Influenza Virus Vaccine Quad IM 3+ YRS Unknown Completed [facility] [place] SARS-COV-2 COVID-19 MODERNA 12+ YRS VACCINE Unknown Completed [facility] [place] Influenza Virus Vaccine,quad Im,preserve Free 65+ (FLUAD) Unknown Completed [facility] [place] Pneumococcal 13 Conjugate, PCV13 (Prevnar 13) Unknown Completed [facility] [place] SARS-COV-2 COVID-19 MODERNA 0.25ML BOOSTER VACCINE Unknown Completed [facility] SARS-COV-2 COVID-19 VACCINE 12 YRS+, BIVALENT 0.5ML, IM, (MODERNA-BLUE TOP) Unknown Completed [facility] Pneumococcal 20 Conjugate, PCV20 (Prevnar 20) Unknown Completed [facility] [place] Influenza Virus Vaccine Unknown Completed [facility] [place] Pneumococcal 7 Conjugate, PCV7 (Prevnar7) Unknown Completed [facility] [place] Influenza Virus Vaccine (3+ yrs) Unknown Completed [facility] [place] Influenza Virus Vaccine Quad IM 3+ YRS Unknown Completed [facility] [place] SARS-COV-2 COVID-19 MODERNA 12+ YRS VACCINE Unknown Completed [facility] [place] Influenza Virus Vaccine,quad Im,preserve Free 65+ (FLUAD) Unknown Completed [facility] [place] Pneumococcal 13 Conjugate, PCV13 (Prevnar 13) Unknown Completed [facility] [place] SARS-COV-2 COVID-19 MODERNA 0.25ML BOOSTER VACCINE Unknown Completed [facility] SARS-COV-2 COVID-19 VACCINE 12 YRS+, BIVALENT 0.5ML, IM, (MODERNA-BLUE TOP) Unknown Completed [facility] Pneumococcal 20 Conjugate, PCV20 (Prevnar 20) Unknown Completed [facility] [place] Influenza Virus Vaccine Unknown Completed [facility] [place] Pneumococcal 7 Conjugate, PCV7 (Prevnar7) Unknown Completed [facility] [place] Influenza Virus Vaccine (3+ yrs) Unknown Completed [facility] [place] Influenza Virus Vaccine Quad IM 3+ YRS Unknown Completed [facility] [place] SARS-COV-2 COVID-19 MODERNA 12+ YRS VACCINE Unknown Completed [facility] [place] Influenza Virus Vaccine,quad Im,preserve Free 65+ (FLUAD) Unknown Completed [facility] [place] Pneumococcal 13 Conjugate, PCV13 (Prevnar 13) Unknown Completed [facility] [place] SARS-COV-2 COVID-19 MODERNA 0.25ML BOOSTER VACCINE Unknown Completed [facility] SARS-COV-2 COVID-19 VACCINE 12 YRS+, BIVALENT 0.5ML, IM, (MODERNA-BLUE TOP) Unknown Completed [facility] Pneumococcal 20 Conjugate, PCV20 (Prevnar 20) Unknown Completed [facility] [place] Influenza Virus Vaccine Unknown Completed [facility] [place] Pneumococcal 7 Conjugate, PCV7 (Prevnar7) Unknown Completed [facility] [place] Influenza Virus Vaccine (3+ yrs) Unknown Completed [facility] [place] Influenza Virus Vaccine Quad IM 3+ YRS Unknown Completed [facility] [place] SARS-COV-2 COVID-19 MODERNA 12+ YRS VACCINE Unknown Completed [facility] [place] Influenza Virus Vaccine,quad Im,preserve Free 65+ (FLUAD) Unknown Completed [facility] [place] Pneumococcal 13 Conjugate, PCV13 (Prevnar 13) Unknown Completed [facility] [place] SARS-COV-2 COVID-19 MODERNA 0.25ML BOOSTER VACCINE Unknown Completed [facility] SARS-COV-2 COVID-19 VACCINE 12 YRS+, BIVALENT 0.5ML, IM, (MODERNA-BLUE TOP) Unknown Completed [facility] Pneumococcal 20 Conjugate, PCV20 (Prevnar 20) Unknown Completed [facility] [place] Influenza Virus Vaccine Unknown Completed [facility] [place] Pneumococcal 7 Conjugate, PCV7 (Prevnar7) Unknown Completed [facility] [place] Influenza Virus Vaccine (3+ yrs) Unknown Completed [facility] [place] Influenza Virus Vaccine Quad IM 3+ YRS Unknown Completed [facility] [place] SARS-COV-2 COVID-19 MODERNA 12+ YRS VACCINE Unknown Completed [facility] [place] Influenza Virus Vaccine,quad Im,preserve Free 65+ (FLUAD) Unknown Completed [facility] [place] Pneumococcal 13 Conjugate, PCV13 (Prevnar 13) Unknown Completed [facility] [place] SARS-COV-2 COVID-19 MODERNA 0.25ML BOOSTER VACCINE Unknown Completed [facility] SARS-COV-2 COVID-19 VACCINE 12 YRS+, BIVALENT 0.5ML, IM, (MODERNA-BLUE TOP) Unknown Completed [facility] Pneumococcal 20 Conjugate, PCV20 (Prevnar 20) Unknown Completed [facility] [place] Pneumococcal 7 Conjugate, PCV7 (Prevnar7) Unknown Completed [facility] [place] Influenza Virus Vaccine Quad IM 3+ YRS Unknown Completed [facility] [place] Pneumococcal 13 Conjugate, PCV13 (Prevnar 13) Unknown Completed [facility] [place] SARS-COV-2 COVID-19 MODERNA 0.25ML BOOSTER VACCINE Unknown Completed [facility] SARS-COV-2 COVID-19 VACCINE 12 YRS+, BIVALENT 0.5ML, IM, (MODERNA-BLUE TOP) Unknown Completed [facility] Pneumococcal 20 Conjugate, PCV20 (Prevnar 20) Unknown Completed [facility] [place] Influenza Virus Vaccine Unknown Completed [facility] [place] Influenza Virus Vaccine (3+ yrs) Unknown Completed [facility] [place] SARS-COV-2 COVID-19 MODERNA 12+ YRS VACCINE Unknown Completed [facility] [place] Influenza Virus Vaccine,quad Im,preserve Free 65+ (FLUAD) Unknown Completed [facility] [place] Influenza Virus Vaccine Unknown Completed [facility] [place] Pneumococcal 7 Conjugate, PCV7 (Prevnar7) Unknown Completed [facility] [place] Influenza Virus Vaccine (3+ yrs) Unknown Completed [facility] [place] Influenza Virus Vaccine Quad IM 3+ YRS Unknown Completed [facility] [place] SARS-COV-2 COVID-19 MODERNA 12+ YRS VACCINE Unknown Completed [facility] [place] Influenza Virus Vaccine,quad Im,preserve Free 65+ (FLUAD) Unknown Completed [facility] [place] Pneumococcal 13 Conjugate, PCV13 (Prevnar 13) Unknown Completed [facility] [place] SARS-COV-2 COVID-19 MODERNA 0.25ML BOOSTER VACCINE Unknown Completed [facility] SARS-COV-2 COVID-19 VACCINE 12 YRS+, BIVALENT 0.5ML, IM, (MODERNA-BLUE TOP) Unknown Completed [facility] Pneumococcal 20 Conjugate, PCV20 (Prevnar 20) Unknown Completed [facility] [place] Influenza Virus Vaccine Unknown Completed [facility] [place] Pneumococcal 7 Conjugate, PCV7 (Prevnar7) Unknown Completed [facility] [place] Influenza Virus Vaccine (3+ yrs) Unknown Completed [facility] [place] Influenza Virus Vaccine Quad IM 3+ YRS Unknown Completed [facility] [place] SARS-COV-2 COVID-19 MODERNA 12+ YRS VACCINE Unknown Completed [facility] [place] Influenza Virus Vaccine,quad Im,preserve Free 65+ (FLUAD) Unknown Completed [facility] [place] Pneumococcal 13 Conjugate, PCV13 (Prevnar 13) Unknown Completed [facility] [place] SARS-COV-2 COVID-19 MODERNA 0.25ML BOOSTER VACCINE Unknown Completed [facility] SARS-COV-2 COVID-19 VACCINE 12 YRS+, BIVALENT 0.5ML, IM, (MODERNA-BLUE TOP) Unknown Completed [facility] Pneumococcal 20 Conjugate, PCV20 (Prevnar 20) Unknown Completed [facility] [place] Influenza Virus Vaccine Unknown Completed [facility] [place] Pneumococcal 7 Conjugate, PCV7 (Prevnar7) Unknown Completed [facility] [place] Influenza Virus Vaccine (3+ yrs) Unknown Completed [facility] [place] Influenza Virus Vaccine Quad IM 3+ YRS Unknown Completed [facility] [place] SARS-COV-2 COVID-19 MODERNA 12+ YRS VACCINE Unknown Completed [facility] [place] Influenza Virus Vaccine,quad Im,preserve Free 65+ (FLUAD) Unknown Completed [facility] [place] Pneumococcal 13 Conjugate, PCV13 (Prevnar 13) Unknown Completed [facility] [place] SARS-COV-2 COVID-19 MODERNA 0.25ML BOOSTER VACCINE Unknown Completed [facility] SARS-COV-2 COVID-19 VACCINE 12 YRS+, BIVALENT 0.5ML, IM, (MODERNA-BLUE TOP) Unknown Completed [facility] Pneumococcal 20 Conjugate, PCV20 (Prevnar 20) Unknown Completed [facility] [place] Pneumococcal 7 Conjugate, PCV7 (Prevnar7) Unknown Completed [facility] [place] Influenza Virus Vaccine (3+ yrs) Unknown Completed [facility] [place] Influenza Virus Vaccine Quad IM 3+ YRS Unknown Completed [facility] [place] SARS-COV-2 COVID-19 MODERNA 12+ YRS VACCINE Unknown Completed [facility] [place] Influenza Virus Vaccine,quad Im,preserve Free 65+ (FLUAD) Unknown Completed [facility] [place] Pneumococcal 13 Conjugate, PCV13 (Prevnar 13) Unknown Completed [facility] [place] SARS-COV-2 COVID-19 MODERNA 0.25ML BOOSTER VACCINE Unknown Completed [facility] SARS-COV-2 COVID-19 VACCINE 12 YRS+, BIVALENT 0.5ML, IM, (MODERNA-BLUE TOP) Unknown Completed [facility] Pneumococcal 20 Conjugate, PCV20 (Prevnar 20) Unknown Completed [facility] [place] Influenza Virus Vaccine Unknown Completed [facility] [place] Influenza Virus Vaccine Unknown Completed [facility] [place] Pneumococcal 7 Conjugate, PCV7 (Prevnar7) Unknown Completed [facility] [place] Influenza Virus Vaccine (3+ yrs) Unknown Completed [facility] [place] Influenza Virus Vaccine Quad IM 3+ YRS Unknown Completed [facility] [place] SARS-COV-2 COVID-19 MODERNA 12+ YRS VACCINE Unknown Completed [facility] [place] Influenza Virus Vaccine,quad Im,preserve Free 65+ (FLUAD) Unknown Completed [facility] [place] Pneumococcal 13 Conjugate, PCV13 (Prevnar 13) Unknown Completed [facility] [place] SARS-COV-2 COVID-19 MODERNA 0.25ML BOOSTER VACCINE Unknown Completed [facility] SARS-COV-2 COVID-19 VACCINE 12 YRS+, BIVALENT 0.5ML, IM, (MODERNA-BLUE TOP) Unknown Completed [facility] Pneumococcal 20 Conjugate, PCV20 (Prevnar 20) Unknown Completed [facility] [place] Influenza Virus Vaccine Unknown Completed [facility] [place] Pneumococcal 7 Conjugate, PCV7 (Prevnar7) Unknown Completed [facility] [place] Influenza Virus Vaccine (3+ yrs) Unknown Completed [facility] [place] Influenza Virus Vaccine Quad IM 3+ YRS Unknown Completed [facility] [place] SARS-COV-2 COVID-19 MODERNA 12+ YRS VACCINE Unknown Completed [facility] [place] Influenza Virus Vaccine,quad Im,preserve Free 65+ (FLUAD) Unknown Completed [facility] [place] Pneumococcal 13 Conjugate, PCV13 (Prevnar 13) Unknown Completed [facility] [place] SARS-COV-2 COVID-19 MODERNA 0.25ML BOOSTER VACCINE Unknown Completed [facility] SARS-COV-2 COVID-19 VACCINE 12 YRS+, BIVALENT 0.5ML, IM, (MODERNA-BLUE TOP) Unknown Completed [facility] Pneumococcal 20 Conjugate, PCV20 (Prevnar 20) Unknown Completed [facility] [place] Influenza Virus Vaccine Unknown Completed [facility] [place] Pneumococcal 7 Conjugate, PCV7 (Prevnar7) Unknown Completed [facility] [place] Influenza Virus Vaccine (3+ yrs) Unknown Completed [facility] [place] Influenza Virus Vaccine Quad IM 3+ YRS Unknown Completed [facility] [place] SARS-COV-2 COVID-19 MODERNA 12+ YRS VACCINE Unknown Completed [facility] [place] Influenza Virus Vaccine,quad Im,preserve Free 65+ (FLUAD) Unknown Completed [facility] Pneumococcal 13 Conjugate, PCV13 (Prevnar 13) Unknown Completed [facility] SARS-COV-2 COVID-19 MODERNA 0.25ML BOOSTER VACCINE Unknown Completed [facility] SARS-COV-2 COVID-19 VACCINE 12 YRS+, BIVALENT 0.5ML, IM, (MODERNA-BLUE TOP) Unknown Completed [facility] Pneumococcal 20 Conjugate, PCV20 (Prevnar 20) Unknown Completed [facility] Influenza Virus Vaccine Unknown Completed [facility] Pneumococcal 7 Conjugate, PCV7 (Prevnar7) Unknown Completed [facility] Influenza Virus Vaccine (3+ yrs) Unknown Completed [facility] Influenza Virus Vaccine Quad IM 3+ YRS Unknown Completed [facility] SARS-COV-2 COVID-19 MODERNA 12+ YRS VACCINE Unknown Completed [facility] Influenza Virus Vaccine,quad Im,preserve Free 65+ (FLUAD) Unknown Completed [facility] Pneumococcal 13 Conjugate, PCV13 (Prevnar 13) Unknown Completed [facility] SARS-COV-2 COVID-19 MODERNA 0.25ML BOOSTER VACCINE Unknown Completed [facility] SARS-COV-2 COVID-19 VACCINE 12 YRS+, BIVALENT 0.5ML, IM, (MODERNA-BLUE TOP) Unknown Completed [facility] Pneumococcal 20 Conjugate, PCV20 (Prevnar 20) Unknown Completed [facility] Influenza Virus Vaccine Unknown Completed [facility] Pneumococcal 7 Conjugate, PCV7 (Prevnar7) Unknown Completed [facility] Influenza Virus Vaccine (3+ yrs) Unknown Completed [facility] Influenza Virus Vaccine Quad IM 3+ YRS Unknown Completed [facility] SARS-COV-2 COVID-19 MODERNA 12+ YRS VACCINE Unknown Completed [facility] Influenza Virus Vaccine,quad Im,preserve Free 65+ (FLUAD) Unknown Completed [facility] Pneumococcal 13 Conjugate, PCV13 (Prevnar 13) Unknown Completed [facility] SARS-COV-2 COVID-19 MODERNA 0.25ML BOOSTER VACCINE Unknown Completed [facility] SARS-COV-2 COVID-19 VACCINE 12 YRS+, BIVALENT 0.5ML, IM, (MODERNA-BLUE TOP) Unknown Completed [facility] Pneumococcal 20 Conjugate, PCV20 (Prevnar 20) Unknown Completed [facility] Influenza Virus Vaccine Unknown Completed [facility] Pneumococcal 7 Conjugate, PCV7 (Prevnar7) Unknown Completed [facility] Influenza Virus Vaccine (3+ yrs) Unknown Completed [facility] Influenza Virus Vaccine Quad IM 3+ YRS Unknown Completed [facility] SARS-COV-2 COVID-19 MODERNA 12+ YRS VACCINE Unknown Completed [facility] Influenza Virus Vaccine,quad Im,preserve Free 65+ (FLUAD) Unknown Completed [facility] Pneumococcal 13 Conjugate, PCV13 (Prevnar 13) Unknown Completed [facility] SARS-COV-2 COVID-19 MODERNA 0.25ML BOOSTER VACCINE Unknown Completed [facility] SARS-COV-2 COVID-19 VACCINE 12 YRS+, BIVALENT 0.5ML, IM, (MODERNA-BLUE TOP) Unknown Completed [facility] Pneumococcal 20 Conjugate, PCV20 (Prevnar 20) Unknown Completed [facility] Influenza Virus Vaccine Unknown Completed [facility] Pneumococcal 7 Conjugate, PCV7 (Prevnar7) Unknown Completed [facility] Influenza Virus Vaccine (3+ yrs) Unknown Completed [facility] Influenza Virus Vaccine Quad IM 3+ YRS Unknown Completed [facility] SARS-COV-2 COVID-19 MODERNA 12+ YRS VACCINE Unknown Completed [facility] Influenza Virus Vaccine,quad Im,preserve Free 65+ (FLUAD) Unknown Completed [facility] Pneumococcal 13 Conjugate, PCV13 (Prevnar 13) Unknown Completed [facility] SARS-COV-2 COVID-19 MODERNA 0.25ML BOOSTER VACCINE Unknown Completed [facility] SARS-COV-2 COVID-19 VACCINE 12 YRS+, BIVALENT 0.5ML, IM, (MODERNA-BLUE TOP) Unknown Completed [facility] Pneumococcal 20 Conjugate, PCV20 (Prevnar 20) Unknown Completed [facility] Influenza Virus Vaccine Unknown Completed [facility] Pneumococcal 7 Conjugate, PCV7 (Prevnar7) Unknown Completed [facility] Influenza Virus Vaccine (3+ yrs) Unknown Completed [facility] Influenza Virus Vaccine Quad IM 3+ YRS Unknown Completed [facility] SARS-COV-2 COVID-19 MODERNA 12+ YRS VACCINE Unknown Completed [facility] Influenza Virus Vaccine,quad Im,preserve Free 65+ (FLUAD) Unknown Completed [facility] Pneumococcal 13 Conjugate, PCV13 (Prevnar 13) Unknown Completed [facility] SARS-COV-2 COVID-19 MODERNA 0.25ML BOOSTER VACCINE Unknown Completed [facility] SARS-COV-2 COVID-19 VACCINE 12 YRS+, BIVALENT 0.5ML, IM, (MODERNA-BLUE TOP) Unknown Completed [facility] Pneumococcal 20 Conjugate, PCV20 (Prevnar 20) Unknown Completed [facility] Pneumococcal 7 Conjugate, PCV7 (Prevnar7) Unknown Completed [facility] Influenza Virus Vaccine Quad IM 3+ YRS Unknown Completed [facility] Pneumococcal 13 Conjugate, PCV13 (Prevnar 13) Unknown Completed [facility] SARS-COV-2 COVID-19 MODERNA 0.25ML BOOSTER VACCINE Unknown Completed [facility] SARS-COV-2 COVID-19 VACCINE 12 YRS+, BIVALENT 0.5ML, IM, (MODERNA-BLUE TOP) Unknown Completed [facility] Pneumococcal 20 Conjugate, PCV20 (Prevnar 20) Unknown Completed [facility] Influenza Virus Vaccine Unknown Completed [facility] Influenza Virus Vaccine (3+ yrs) Unknown Completed [facility] SARS-COV-2 COVID-19 MODERNA 12+ YRS VACCINE Unknown Completed [facility] Influenza Virus Vaccine,quad Im,preserve Free 65+ (FLUAD) Unknown Completed [facility] Influenza Virus Vaccine Unknown Completed [facility] Pneumococcal 7 Conjugate, PCV7 (Prevnar7) Unknown Completed [facility] Influenza Virus Vaccine (3+ yrs) Unknown Completed [facility] Influenza Virus Vaccine Quad IM 3+ YRS Unknown Completed [facility] SARS-COV-2 COVID-19 MODERNA 12+ YRS VACCINE Unknown Completed [facility] Influenza Virus Vaccine,quad Im,preserve Free 65+ (FLUAD) Unknown Completed [facility] Pneumococcal 13 Conjugate, PCV13 (Prevnar 13) Unknown Completed [facility] SARS-COV-2 COVID-19 MODERNA 0.25ML BOOSTER VACCINE Unknown Completed [facility] SARS-COV-2 COVID-19 VACCINE 12 YRS+, BIVALENT 0.5ML, IM, (MODERNA-BLUE TOP) Unknown Completed [facility] Pneumococcal 20 Conjugate, PCV20 (Prevnar 20) Unknown Completed [facility] Influenza Virus Vaccine Unknown Completed [facility] Pneumococcal 7 Conjugate, PCV7 (Prevnar7) Unknown Completed [facility] Influenza Virus Vaccine (3+ yrs) Unknown Completed [facility] Influenza Virus Vaccine Quad IM 3+ YRS Unknown Completed [facility] SARS-COV-2 COVID-19 MODERNA 12+ YRS VACCINE Unknown Completed [facility] Influenza Virus Vaccine,quad Im,preserve Free 65+ (FLUAD) Unknown Completed [facility] Pneumococcal 13 Conjugate, PCV13 (Prevnar 13) Unknown Completed [facility] SARS-COV-2 COVID-19 MODERNA 0.25ML BOOSTER VACCINE Unknown Completed [facility] SARS-COV-2 COVID-19 VACCINE 12 YRS+, BIVALENT 0.5ML, IM, (MODERNA-BLUE TOP) Unknown Completed [facility] Pneumococcal 20 Conjugate, PCV20 (Prevnar 20) Unknown Completed [facility] Influenza Virus Vaccine Unknown Completed [facility] Pneumococcal 7 Conjugate, PCV7 (Prevnar7) Unknown Completed [facility] Influenza Virus Vaccine (3+ yrs) Unknown Completed [facility] Influenza Virus Vaccine Quad IM 3+ YRS Unknown Completed [facility] SARS-COV-2 COVID-19 MODERNA 12+ YRS VACCINE Unknown Completed [facility] Influenza Virus Vaccine,quad Im,preserve Free 65+ (FLUAD) Unknown Completed [facility] Pneumococcal 13 Conjugate, PCV13 (Prevnar 13) Unknown Completed [facility] SARS-COV-2 COVID-19 MODERNA 0.25ML BOOSTER VACCINE Unknown Completed [facility] SARS-COV-2 COVID-19 VACCINE 12 YRS+, BIVALENT 0.5ML, IM, (MODERNA-BLUE TOP) Unknown Completed [facility] Pneumococcal 20 Conjugate, PCV20 (Prevnar 20) Unknown Completed [facility] Influenza Virus Vaccine Unknown Completed [facility] Pneumococcal 7 Conjugate, PCV7 (Prevnar7) Unknown Completed [facility] Influenza Virus Vaccine (3+ yrs) Unknown Completed [facility] Influenza Virus Vaccine Quad IM 3+ YRS Unknown Completed [facility] SARS-COV-2 COVID-19 MODERNA 12+ YRS VACCINE Unknown Completed [facility] Influenza Virus Vaccine,quad Im,preserve Free 65+ (FLUAD) Unknown Completed [facility] Pneumococcal 13 Conjugate, PCV13 (Prevnar 13) Unknown Completed [facility] SARS-COV-2 COVID-19 MODERNA 0.25ML BOOSTER VACCINE Unknown Completed [facility] SARS-COV-2 COVID-19 VACCINE 12 YRS+, BIVALENT 0.5ML, IM, (MODERNA-BLUE TOP) Unknown Completed [facility] Pneumococcal 20 Conjugate, PCV20 (Prevnar 20) Unknown Completed [facility] Influenza Virus Vaccine Unknown Completed [facility] Pneumococcal 7 Conjugate, PCV7 (Prevnar7) Unknown Completed [facility] Influenza Virus Vaccine (3+ yrs) Unknown Completed [facility] Influenza Virus Vaccine Quad IM 3+ YRS Unknown Completed [facility] SARS-COV-2 COVID-19 MODERNA 12+ YRS VACCINE Unknown Completed [facility] Influenza Virus Vaccine,quad Im,preserve Free 65+ (FLUAD) Unknown Completed [facility] Pneumococcal 13 Conjugate, PCV13 (Prevnar 13) Unknown Completed [facility] SARS-COV-2 COVID-19 MODERNA 0.25ML BOOSTER VACCINE Unknown Completed [facility] SARS-COV-2 COVID-19 VACCINE 12 YRS+, BIVALENT 0.5ML, IM, (MODERNA-BLUE TOP) Unknown Completed [facility] Pneumococcal 20 Conjugate, PCV20 (Prevnar 20) Unknown Completed [facility] Influenza Virus Vaccine Unknown Completed [facility] Pneumococcal 7 Conjugate, PCV7 (Prevnar7) Unknown Completed [facility] Influenza Virus Vaccine (3+ yrs) Unknown Completed [facility] Influenza Virus Vaccine Quad IM 3+ YRS Unknown Completed [facility] SARS-COV-2 COVID-19 MODERNA 12+ YRS VACCINE Unknown Completed [facility] Influenza Virus Vaccine,quad Im,preserve Free 65+ (FLUAD) Unknown Completed [facility] Pneumococcal 13 Conjugate, PCV13 (Prevnar 13) Unknown Completed [facility] SARS-COV-2 COVID-19 MODERNA 0.25ML BOOSTER VACCINE Unknown Completed [facility] SARS-COV-2 COVID-19 VACCINE 12 YRS+, BIVALENT 0.5ML, IM, (MODERNA-BLUE TOP) Unknown Completed [facility] Pneumococcal 20 Conjugate, PCV20 (Prevnar 20) Unknown Completed [facility] Influenza Virus Vaccine Unknown Completed [facility] Pneumococcal 7 Conjugate, PCV7 (Prevnar7) Unknown Completed [facility] Influenza Virus Vaccine (3+ yrs) Unknown Completed [facility] Influenza Virus Vaccine Quad IM 3+ YRS Unknown Completed [facility] SARS-COV-2 COVID-19 MODERNA 12+ YRS VACCINE Unknown Completed [facility] Influenza Virus Vaccine,quad Im,preserve Free 65+ (FLUAD) Unknown Completed [facility] Pneumococcal 13 Conjugate, PCV13 (Prevnar 13) Unknown Completed [facility] SARS-COV-2 COVID-19 MODERNA 0.25ML BOOSTER VACCINE Unknown Completed [facility] SARS-COV-2 COVID-19 VACCINE 12 YRS+, BIVALENT 0.5ML, IM, (MODERNA-BLUE TOP) Unknown Completed [facility] Pneumococcal 20 Conjugate, PCV20 (Prevnar 20) Unknown Completed [facility] Influenza Virus Vaccine Unknown Completed [facility] Pneumococcal 7 Conjugate, PCV7 (Prevnar7) Unknown Completed [facility] Influenza Virus Vaccine (3+ yrs) Unknown Completed [facility] Influenza Virus Vaccine Quad IM 3+ YRS Unknown Completed [facility] SARS-COV-2 COVID-19 MODERNA 12+ YRS VACCINE Unknown Completed [facility] Influenza Virus Vaccine,quad Im,preserve Free 65+ (FLUAD) Unknown Completed [facility] Pneumococcal 13 Conjugate, PCV13 (Prevnar 13) Unknown Completed [facility] SARS-COV-2 COVID-19 MODERNA 0.25ML BOOSTER VACCINE Unknown Completed [facility] SARS-COV-2 COVID-19 VACCINE 12 YRS+, BIVALENT 0.5ML, IM, (MODERNA-BLUE TOP) Unknown Completed [facility] Pneumococcal 20 Conjugate, PCV20 (Prevnar 20) Unknown Completed [facility] Influenza Virus Vaccine Unknown Completed [facility] Pneumococcal 7 Conjugate, PCV7 (Prevnar7) Unknown Completed [facility] Influenza Virus Vaccine (3+ yrs) Unknown Completed [facility] Influenza Virus Vaccine Quad IM 3+ YRS Unknown Completed [facility] SARS-COV-2 COVID-19 MODERNA 12+ YRS VACCINE Unknown Completed [facility] Influenza Virus Vaccine,quad Im,preserve Free 65+ (FLUAD) Unknown Completed [facility] Pneumococcal 13 Conjugate, PCV13 (Prevnar 13) Unknown Completed [facility] SARS-COV-2 COVID-19 MODERNA 0.25ML BOOSTER VACCINE Unknown Completed [facility] SARS-COV-2 COVID-19 VACCINE 12 YRS+, BIVALENT 0.5ML, IM, (MODERNA-BLUE TOP) Unknown Completed [facility] Pneumococcal 20 Conjugate, PCV20 (Prevnar 20) Unknown Completed [facility] Influenza Virus Vaccine Unknown Completed [facility] Pneumococcal 7 Conjugate, PCV7 (Prevnar7) Unknown Completed [facility] Influenza Virus Vaccine (3+ yrs) Unknown Completed [facility] Influenza Virus Vaccine Quad IM 3+ YRS Unknown Completed [facility] SARS-COV-2 COVID-19 MODERNA 12+ YRS VACCINE Unknown Completed [facility] Influenza Virus Vaccine,quad Im,preserve Free 65+ (FLUAD) Unknown Completed [facility] Pneumococcal 13 Conjugate, PCV13 (Prevnar 13) Unknown Completed [facility] SARS-COV-2 COVID-19 MODERNA 0.25ML BOOSTER VACCINE Unknown Completed [facility] SARS-COV-2 COVID-19 VACCINE 12 YRS+, BIVALENT 0.5ML, IM, (MODERNA-BLUE TOP) Unknown Completed [facility] Pneumococcal 20 Conjugate, PCV20 (Prevnar 20) Unknown Completed [facility] Influenza Virus Vaccine Unknown Completed [facility] Pneumococcal 7 Conjugate, PCV7 (Prevnar7) Unknown Completed [facility] Influenza Virus Vaccine (3+ yrs) Unknown Completed [facility] Influenza Virus Vaccine Quad IM 3+ YRS Unknown Completed [facility] SARS-COV-2 COVID-19 MODERNA 12+ YRS VACCINE Unknown Completed [facility] Influenza Virus Vaccine,quad Im,preserve Free 65+ (FLUAD) Unknown Completed [facility] Pneumococcal 13 Conjugate, PCV13 (Prevnar 13) Unknown Completed [facility] SARS-COV-2 COVID-19 MODERNA 0.25ML BOOSTER VACCINE Unknown Completed [facility] SARS-COV-2 COVID-19 VACCINE 12 YRS+, BIVALENT 0.5ML, IM, (MODERNA-BLUE TOP) Unknown Completed [facility] Pneumococcal 20 Conjugate, PCV20 (Prevnar 20) Unknown Completed [facility] Influenza Virus Vaccine Unknown Completed [facility] Pneumococcal 7 Conjugate, PCV7 (Prevnar7) Unknown Completed [facility] Influenza Virus Vaccine (3+ yrs) Unknown Completed [facility] Influenza Virus Vaccine Quad IM 3+ YRS Unknown Completed [facility] SARS-COV-2 COVID-19 MODERNA 12+ YRS VACCINE Unknown Completed [facility] Influenza Virus Vaccine,quad Im,preserve Free 65+ (FLUAD) Unknown Completed [facility] Pneumococcal 13 Conjugate, PCV13 (Prevnar 13) Unknown Completed [facility] SARS-COV-2 COVID-19 MODERNA 0.25ML BOOSTER VACCINE Unknown Completed [facility] SARS-COV-2 COVID-19 VACCINE 12 YRS+, BIVALENT 0.5ML, IM, (MODERNA-BLUE TOP) Unknown Completed [facility] Pneumococcal 20 Conjugate, PCV20 (Prevnar 20) Unknown Completed [facility] Influenza Virus Vaccine Unknown Completed [facility] Pneumococcal 7 Conjugate, PCV7 (Prevnar7) Unknown Completed [facility] Influenza Virus Vaccine (3+ yrs) Unknown Completed [facility] Influenza Virus Vaccine Quad IM 3+ YRS Unknown Completed [facility] SARS-COV-2 COVID-19 MODERNA 12+ YRS VACCINE Unknown Completed [facility] Influenza Virus Vaccine,quad Im,preserve Free 65+ (FLUAD) Unknown Completed [facility] Pneumococcal 13 Conjugate, PCV13 (Prevnar 13) Unknown Completed [facility] SARS-COV-2 COVID-19 MODERNA 0.25ML BOOSTER VACCINE Unknown Completed [facility] SARS-COV-2 COVID-19 VACCINE 12 YRS+, BIVALENT 0.5ML, IM, (MODERNA-BLUE TOP) Unknown Completed [facility] Pneumococcal 20 Conjugate, PCV20 (Prevnar 20) Unknown Completed [facility] Influenza Virus Vaccine Unknown Completed [facility] Pneumococcal 7 Conjugate, PCV7 (Prevnar7) Unknown Completed [facility] Influenza Virus Vaccine (3+ yrs) Unknown Completed [facility] Influenza Virus Vaccine Quad IM 3+ YRS Unknown Completed [facility] SARS-COV-2 COVID-19 MODERNA 12+ YRS VACCINE Unknown Completed [facility] Influenza Virus Vaccine,quad Im,preserve Free 65+ (FLUAD) Unknown Completed [facility] Pneumococcal 13 Conjugate, PCV13 (Prevnar 13) Unknown Completed [facility] SARS-COV-2 COVID-19 MODERNA 0.25ML BOOSTER VACCINE Unknown Completed [facility] SARS-COV-2 COVID-19 VACCINE 12 YRS+, BIVALENT 0.5ML, IM, (MODERNA-BLUE TOP) Unknown Completed [facility] Pneumococcal 20 Conjugate, PCV20 (Prevnar 20) Unknown Completed [facility] Influenza Virus Vaccine Unknown Completed [facility] Pneumococcal 7 Conjugate, PCV7 (Prevnar7) Unknown Completed [facility] Influenza Virus Vaccine (3+ yrs) Unknown Completed [facility] Influenza Virus Vaccine Quad IM 3+ YRS Unknown Completed [facility] SARS-COV-2 COVID-19 MODERNA 12+ YRS VACCINE Unknown Completed [facility] Influenza Virus Vaccine,quad Im,preserve Free 65+ (FLUAD) Unknown Completed [facility] Pneumococcal 13 Conjugate, PCV13 (Prevnar 13) Unknown Completed [facility] SARS-COV-2 COVID-19 MODERNA 0.25ML BOOSTER VACCINE Unknown Completed [facility] SARS-COV-2 COVID-19 VACCINE 12 YRS+, BIVALENT 0.5ML, IM, (MODERNA-BLUE TOP) Unknown Completed [facility] Pneumococcal 20 Conjugate, PCV20 (Prevnar 20) Unknown Completed [facility] Influenza Virus Vaccine Unknown Completed [facility] Pneumococcal 7 Conjugate, PCV7 (Prevnar7) Unknown Completed [facility] Influenza Virus Vaccine (3+ yrs) Unknown Completed [facility] Influenza Virus Vaccine Quad IM 3+ YRS Unknown Completed [facility] SARS-COV-2 COVID-19 MODERNA 12+ YRS VACCINE Unknown Completed [facility] Influenza Virus Vaccine,quad Im,preserve Free 65+ (FLUAD) Unknown Completed [facility] Pneumococcal 13 Conjugate, PCV13 (Prevnar 13) Unknown Completed [facility] SARS-COV-2 COVID-19 MODERNA 0.25ML BOOSTER VACCINE Unknown Completed [facility] SARS-COV-2 COVID-19 VACCINE 12 YRS+, BIVALENT 0.5ML, IM, (MODERNA-BLUE TOP) Unknown Completed [facility] Pneumococcal 20 Conjugate, PCV20 (Prevnar 20) Unknown Completed [facility] Influenza Virus Vaccine Unknown Completed [facility] Pneumococcal 7 Conjugate, PCV7 (Prevnar7) Unknown Completed [facility] Influenza Virus Vaccine (3+ yrs) Unknown Completed [facility] Influenza Virus Vaccine Quad IM 3+ YRS Unknown Completed [facility] SARS-COV-2 COVID-19 MODERNA 12+ YRS VACCINE Unknown Completed [facility] Influenza Virus Vaccine,quad Im,preserve Free 65+ (FLUAD) Unknown Completed [facility] Pneumococcal 13 Conjugate, PCV13 (Prevnar 13) Unknown Completed [facility] SARS-COV-2 COVID-19 MODERNA 0.25ML BOOSTER VACCINE Unknown Completed [facility] SARS-COV-2 COVID-19 VACCINE 12 YRS+, BIVALENT 0.5ML, IM, (MODERNA-BLUE TOP) Unknown Completed [facility] Pneumococcal 20 Conjugate, PCV20 (Prevnar 20) Unknown Completed [facility] Influenza Virus Vaccine Unknown Completed [facility] Pneumococcal 7 Conjugate, PCV7 (Prevnar7) Unknown Completed [facility] Influenza Virus Vaccine (3+ yrs) Unknown Completed [facility] Influenza Virus Vaccine Quad IM 3+ YRS Unknown Completed [facility] SARS-COV-2 COVID-19 MODERNA 12+ YRS VACCINE Unknown Completed [facility] Influenza Virus Vaccine,quad Im,preserve Free 65+ (FLUAD) Unknown Completed [facility] Pneumococcal 13 Conjugate, PCV13 (Prevnar 13) Unknown Completed [facility] SARS-COV-2 COVID-19 MODERNA 0.25ML BOOSTER VACCINE Unknown Completed [facility] SARS-COV-2 COVID-19 VACCINE 12 YRS+, BIVALENT 0.5ML, IM, (MODERNA-BLUE TOP) Unknown Completed [facility] Pneumococcal 20 Conjugate, PCV20 (Prevnar 20) Unknown Completed [facility] Influenza Virus Vaccine Unknown Completed [facility] Pneumococcal 7 Conjugate, PCV7 (Prevnar7) Unknown Completed [facility] Influenza Virus Vaccine (3+ yrs) Unknown Completed [facility] Influenza Virus Vaccine Quad IM 3+ YRS Unknown Completed [facility] SARS-COV-2 COVID-19 MODERNA 12+ YRS VACCINE Unknown Completed [facility] Influenza Virus Vaccine,quad Im,preserve Free 65+ (FLUAD) Unknown Completed [facility] Pneumococcal 13 Conjugate, PCV13 (Prevnar 13) Unknown Completed [facility] SARS-COV-2 COVID-19 MODERNA 0.25ML BOOSTER VACCINE Unknown Completed [facility] SARS-COV-2 COVID-19 VACCINE 12 YRS+, BIVALENT 0.5ML, IM, (MODERNA-BLUE TOP) Unknown Completed [facility] Pneumococcal 20 Conjugate, PCV20 (Prevnar 20) Unknown Completed [facility] Influenza Virus Vaccine Unknown Completed [facility] Pneumococcal 7 Conjugate, PCV7 (Prevnar7) Unknown Completed [facility] Influenza Virus Vaccine (3+ yrs) Unknown Completed [facility] Influenza Virus Vaccine Quad IM 3+ YRS Unknown Completed [facility] SARS-COV-2 COVID-19 MODERNA 12+ YRS VACCINE Unknown Completed [facility] Influenza Virus Vaccine,quad Im,preserve Free 65+ (FLUAD) Unknown Completed [facility] Pneumococcal 13 Conjugate, PCV13 (Prevnar 13) Unknown Completed [facility] SARS-COV-2 COVID-19 MODERNA 0.25ML BOOSTER VACCINE Unknown Completed [facility] SARS-COV-2 COVID-19 VACCINE 12 YRS+, BIVALENT 0.5ML, IM, (MODERNA-BLUE TOP) Unknown Completed [facility] Pneumococcal 20 Conjugate, PCV20 (Prevnar 20) Unknown Completed [facility] Influenza Virus Vaccine Unknown Completed [facility] Pneumococcal 7 Conjugate, PCV7 (Prevnar7) Unknown Completed [facility] Influenza Virus Vaccine (3+ yrs) Unknown Completed [facility] Influenza Virus Vaccine Quad IM 3+ YRS Unknown Completed [facility] SARS-COV-2 COVID-19 MODERNA 12+ YRS VACCINE Unknown Completed [facility] Influenza Virus Vaccine,quad Im,preserve Free 65+ (FLUAD) Unknown Completed [facility] Pneumococcal 13 Conjugate, PCV13 (Prevnar 13) Unknown Completed [facility] SARS-COV-2 COVID-19 MODERNA 0.25ML BOOSTER VACCINE Unknown Completed [facility] SARS-COV-2 COVID-19 VACCINE 12 YRS+, BIVALENT 0.5ML, IM, (MODERNA-BLUE TOP) Unknown Completed [facility] Pneumococcal 20 Conjugate, PCV20 (Prevnar 20) Unknown Completed [facility] Influenza, adjuvanted, trivalent, PF (FLUAD) Unknown Completed [facility] Influenza Virus Vaccine Unknown Completed [facility] Pneumococcal 7 Conjugate, PCV7 (Prevnar7) Unknown Completed [facility] Influenza Virus Vaccine (3+ yrs) Unknown Completed [facility] Influenza Virus Vaccine Quad IM 3+ YRS Unknown Completed [facility] SARS-COV-2 COVID-19 MODERNA 12+ YRS VACCINE Unknown Completed [facility] Influenza Virus Vaccine,quad Im,preserve Free 65+ (FLUAD) Unknown Completed [facility] Pneumococcal 13 Conjugate, PCV13 (Prevnar 13) Unknown Completed [facility] SARS-COV-2 COVID-19 MODERNA 0.25ML BOOSTER VACCINE Unknown Completed [facility] SARS-COV-2 COVID-19 VACCINE 12 YRS+, BIVALENT 0.5ML, IM, (MODERNA-BLUE TOP) Unknown Completed [facility] Pneumococcal 20 Conjugate, PCV20 (Prevnar 20) Unknown Completed [facility] Influenza, adjuvanted, trivalent, PF (FLUAD) Unknown Completed [facility] Influenza Virus Vaccine Unknown Completed [facility] Pneumococcal 7 Conjugate, PCV7 (Prevnar7) Unknown Completed [facility] Influenza Virus Vaccine (3+ yrs) Unknown Completed [facility] Influenza Virus Vaccine Quad IM 3+ YRS Unknown Completed [facility] SARS-COV-2 COVID-19 MODERNA 12+ YRS VACCINE Unknown Completed [facility] Influenza Virus Vaccine,quad Im,preserve Free 65+ (FLUAD) Unknown Completed [facility] Pneumococcal 13 Conjugate, PCV13 (Prevnar 13) Unknown Completed [facility] SARS-COV-2 COVID-19 MODERNA 0.25ML BOOSTER VACCINE Unknown Completed [facility] SARS-COV-2 COVID-19 VACCINE 12 YRS+, BIVALENT 0.5ML, IM, (MODERNA-BLUE TOP) Unknown Completed [facility] Pneumococcal 20 Conjugate, PCV20 (Prevnar 20) Unknown Completed [facility] Influenza, adjuvanted, trivalent, PF (FLUAD) Unknown Completed [facility] TDAP Unknown Completed [facility] SARS-COV-2 COVID 19 BRITTANEY SUCROSE VACCINE 12+, , 0.3 ML (30 MCG), IM PFIZER (ROCHA TOP) Unknown Completed [facility] Vital Signs Vital Name Observation Time Observation Value Comments S ource Systolic blood pressure 2024-04-29 15:40:00 169 mm[Hg] [facility] Diastolic blood pressure 2024-04-29 15:40:00 92 mm[Hg] [facility] Heart rate 2024-04-29 15:03:00 75 /min [facility] Body temperature 2024-04-29 15:03:00 36.06 Cris [facility] Respiratory rate 2024-04-29 15:03:00 20 /min [facility] Body height 2024-04-29 15:03:00 175.3 cm [facility] Body weight 2024-04-29 15:03:00 93.94 kg [facility] BMI 2024-04-29 15:03:00 30.58 kg/m2 [facility] Oxygen saturation in Arterial blood by Pulse oximetry 2024-04-29 15:03:00 99 /min [facility] Systolic blood pressure 2024-04-12 19:03:00 180 mm[Hg] [facility] Diastolic blood pressure 2024-04-12 19:03:00 91 mm[Hg] [facility] Heart rate 2024-04-12 19:03:00 83 /min [facility] Body temperature 2024-04-12 19:02:00 36.17 Cris [facility] Body height 2024-04-12 19:02:00 175.3 cm [facility] Body weight 2024-04-12 19:02:00 94.439 kg [facility] BMI 2024-04-12 19:02:00 30.75 kg/m2 [facility] Oxygen saturation in Arterial blood by Pulse oximetry 2024-04-12 19:02:00 99 /min [facility] Systolic blood pressure 2024-01-21 13:11:00 159 mm[Hg] [facility] Diastolic blood pressure 2024-01-21 13:11:00 90 mm[Hg] [facility] Heart rate 2024-01-21 13:10:00 84 /min [facility] Body temperature 2024-01-21 13:10:00 36.39 Cris [facility] Body height 2024-01-21 13:10:00 175.3 cm [facility] Body weight 2024-01-21 13:10:00 97.07 kg [facility] BMI 2024-01-21 13:10:00 31.60 kg/m2 [facility] Oxygen saturation in Arterial blood by Pulse oximetry 2024-01-21 13:10:00 97 /min [facility] Systolic blood pressure 2024-01-21 13:11:00 159 mm[Hg] [facility] Diastolic blood pressure 2024-01-21 13:11:00 90 mm[Hg] [facility] Heart rate 2024-01-21 13:09:00 84 /min [facility] Body temperature 2024-01-21 13:09:00 36.39 Cris [facility] Body height 2024-01-21 13:09:00 175.3 cm [facility] Body weight 2024-01-21 13:09:00 97.07 kg [facility] BMI 2024-01-21 13:09:00 31.60 kg/m2 [facility] Oxygen saturation in Arterial blood by Pulse oximetry 2024-01-21 13:09:00 97 /min [facility] Systolic blood pressure 2024-01-13 14:49:00 144 mm[Hg] [facility] Diastolic blood pressure 2024-01-13 14:49:00 85 mm[Hg] [facility] Heart rate 2024-01-13 14:49:00 83 /min [facility] Body temperature 2024-01-13 14:49:00 36.61 Cris [facility] Respiratory rate 2024-01-13 14:49:00 16 /min [facility] Body height 2024-01-13 14:49:00 175.3 cm [facility] Body weight 2024-01-13 14:49:00 100.336 kg [facility] BMI 2024-01-13 14:49:00 32.67 kg/m2 [facility] Oxygen saturation in Arterial blood by Pulse oximetry 2024-01-13 14:49:00 96 /min [facility] Systolic blood pressure 2024-01-05 18:57:00 125 mm[Hg] [place] [facility] Diastolic blood pressure 2024-01-05 18:57:00 91 mm[Hg] [facility] Heart rate 2024-01-05 18:57:00 92 /min [facility] Oxygen saturation in Arterial blood by Pulse oximetry 2024-01-05 18:57:00 100 /min [facility] Body temperature 2024-01-05 18:56:00 36.33 Cris [facility] Body height 2024-01-05 18:56:00 165.1 cm [facility] Body weight 2024-01-05 18:56:00 97.841 kg [facility] BMI 2024-01-05 18:56:00 35.89 kg/m2 [facility] Systolic blood pressure 2023-11-12 20:26:00 152 mm[Hg] [facility] Diastolic blood pressure 2023-11-12 20:26:00 84 mm[Hg] [facility] Heart rate 2023-11-12 20:26:00 73 /min [facility] Body temperature 2023-11-12 20:26:00 36.5 Cris [facility] Respiratory rate 2023-11-12 20:26:00 19 /min [facility] Body height 2023-11-12 20:26:00 165.1 cm [facility] Body weight 2023-11-12 20:26:00 96.798 kg [facility] BMI 2023-11-12 20:26:00 35.51 kg/m2 [facility] Oxygen saturation in Arterial blood by Pulse oximetry 2023-11-12 20:26:00 98 /min [facility] Systolic blood pressure 2023-10-16 20:10:00 137 mm[Hg] [facility] Diastolic blood pressure 2023-10-16 20:10:00 82 mm[Hg] [facility] Heart rate 2023-10-16 20:10:00 96 /min [facility] Respiratory rate 2023-10-16 20:10:00 21 /min [facility] Body height 2023-10-16 20:10:00 175.3 cm [facility] Body weight 2023-10-16 20:10:00 93.668 kg [facility] BMI 2023-10-16 20:10:00 30.49 kg/m2 [facility] Oxygen saturation in Arterial blood by Pulse oximetry 2023-10-16 20:10:00 97 /min [facility] Systolic blood pressure 2023-10-07 14:57:00 149 mm[Hg] [facility] Diastolic blood pressure 2023-10-07 14:57:00 91 mm[Hg] [facility] Heart rate 2023-10-07 14:56:00 98 /min [facility] Body temperature 2023-10-07 14:56:00 36.5 Cris [facility] Body height 2023-10-07 14:56:00 165.1 cm [facility] Body weight 2023-10-07 14:56:00 92.987 kg [facility] BMI 2023-10-07 14:56:00 34.11 kg/m2 [facility] Oxygen saturation in Arterial blood by Pulse oximetry 2023-10-07 14:56:00 98 /min [facility] Systolic blood pressure 2023-07-31 18:58:00 168 mm[Hg] [facility] Diastolic blood pressure 2023-07-31 18:58:00 92 mm[Hg] [facility] Heart rate 2023-07-31 18:58:00 74 /min [facility] Body temperature 2023-07-31 18:58:00 36.22 Cris [facility] Respiratory rate 2023-07-31 18:58:00 17 /min [facility] Body height 2023-07-31 18:58:00 175.3 cm [facility] Body weight 2023-07-31 18:58:00 83.598 kg [facility] BMI 2023-07-31 18:58:00 27.22 kg/m2 [facility] Oxygen saturation in Arterial blood by Pulse oximetry 2023-07-31 18:58:00 100 /min [facility] Systolic blood pressure 2023-07-17 13:42:00 134 mm[Hg] [facility] Diastolic blood pressure 2023-07-17 13:42:00 68 mm[Hg] [facility] Heart rate 2023-07-17 13:42:00 75 /min [facility] Body temperature 2023-07-17 13:42:00 36.44 Cris [facility] Oxygen saturation in Arterial blood by Pulse oximetry 2023-07-17 13:42:00 97 /min [facility] Respiratory rate 2023-07-17 12:57:00 22 /min [facility] Body weight 2023-07-15 14:00:00 87.59 kg [facility] BMI 2023-07-15 14:00:00 28.52 kg/m2 [facility] Body height 2023-07-03 01:49:00 175.3 cm [facility] Heart rate 2023-07-09 03:15:00 86 /min [facility] Body temperature 2023-07-09 03:15:00 35.89 Cris [facility] Oxygen saturation in Arterial blood by Pulse oximetry 2023-07-09 03:15:00 100 /min [facility] Respiratory rate 2023-07-09 02:46:00 14 /min [facility] Body weight 2023-07-08 09:00:00 88.905 kg [facility] BMI 2023-07-08 09:00:00 28.94 kg/m2 [facility] Systolic blood pressure 2023-07-08 08:17:00 148 mm[Hg] notified RN [facility] Diastolic blood pressure 2023-07-08 08:17:00 77 mm[Hg] notified RN [facility] Body height 2023-07-03 01:49:00 175.3 cm [facility] Body weight 2023-07-08 09:00:00 88.905 kg [facility] BMI 2023-07-08 09:00:00 28.94 kg/m2 [facility] Systolic blood pressure 2023-07-08 08:17:00 148 mm[Hg] notified RN [facility] Diastolic blood pressure 2023-07-08 08:17:00 77 mm[Hg] notified RN [facility] Heart rate 2023-07-08 08:17:00 67 /min [facility] Body temperature 2023-07-08 08:17:00 36.22 Cris [facility] Respiratory rate 2023-07-08 08:17:00 18 /min [facility] Oxygen saturation in Arterial blood by Pulse oximetry 2023-07-08 08:17:00 95 /min [facility] Body height 2023-07-03 01:49:00 175.3 cm [facility] Systolic blood pressure 2023-07-04 22:11:44 130 mm[Hg] [facility] Diastolic blood pressure 2023-07-04 22:11:44 76 mm[Hg] [facility] Respiratory rate 2023-07-04 22:11:44 17 /min [facility] Oxygen saturation in Arterial blood by Pulse oximetry 2023-07-04 22:11:44 97 /min [facility] Heart rate 2023-07-04 21:39:00 67 /min [facility] Body temperature 2023-07-04 16:59:00 36.56 Cris [facility] Body weight 2023-07-04 10:00:00 93.532 kg [facility] BMI 2023-07-04 10:00:00 30.45 kg/m2 [facility] Body height 2023-07-03 01:49:00 175.3 cm [facility] Systolic blood pressure 2023-05-26 15:57:00 173 mm[Hg] [place] [facility] Diastolic blood pressure 2023-05-26 15:57:00 92 mm[Hg] [facility] Heart rate 2023-05-26 15:57:00 74 /min [facility] in Arterial blood by Pulse oximetry 2023-05-26 15:57:00 99 /min [facility] Body temperature 2023-05-26 15:56:00 36.28 Cris [facility] Body height 2023-05-26 15:56:00 177.8 cm [facility] Body weight 2023-05-26 15:56:00 94.212 kg [facility] BMI 2023-05-26 15:56:00 29.80 kg/m2 [facility] Body weight 2023-05-02 16:22:00 91.627 kg [facility] BMI 2023-05-02 16:22:00 28.98 kg/m2 [facility] Body weight 2023-03-28 16:46:00 91.627 kg [facility] BMI 2023-03-28 16:46:00 28.98 kg/m2 [facility] Body weight 2023-02-24 15:56:00 91.627 kg [facility] BMI 2023-02-24 15:56:00 28.98 kg/m2 [facility] Systolic blood pressure 2023-02-19 15:04:00 141 mm[Hg] [facility] Diastolic blood pressure 2023-02-19 15:04:00 71 mm[Hg] [facility] Heart rate 2023-02-19 15:04:00 70 /min [facility] Body temperature 2023-02-19 15:03:00 36.28 Cris [facility] Respiratory rate 2023-02-19 15:03:00 18 /min [facility] Body height 2023-02-19 15:03:00 177.8 cm [facility] Body weight 2023-02-19 15:03:00 91.989 kg [facility] BMI 2023-02-19 15:03:00 29.10 kg/m2 [facility] Oxygen saturation in Arterial blood by Pulse oximetry 2023-02-19 15:03:00 95 /min [facility] Body weight 2023-01-27 19:27:00 92.534 kg [facility] BMI 2023-01-27 19:27:00 30.13 kg/m2 [facility] Systolic blood pressure 2023-01-13 16:09:00 144 mm[Hg] [facility] Diastolic blood pressure 2023-01-13 16:09:00 81 mm[Hg] [facility] Heart rate 2023-01-13 16:09:00 78 /min [facility] Body temperature 2023-01-13 16:09:00 35.83 Cris [facility] Respiratory rate 2023-01-13 16:09:00 16 /min [facility] Body height 2023-01-13 16:09:00 175.3 cm [facility] Body weight 2023-01-13 16:09:00 92.579 kg [facility] BMI 2023-01-13 16:09:00 30.14 kg/m2 [facility] Oxygen saturation in Arterial blood by Pulse oximetry 2023-01-13 16:09:00 96 /min [facility] Body weight 2023-01-06 15:28:00 92.08 kg [facility] BMI 2023-01-06 15:28:00 29.98 kg/m2 [facility] Systolic blood pressure 2022-11-25 18:12:00 155 mm[Hg] [facility] Diastolic blood pressure 2022-11-25 18:12:00 77 mm[Hg] [facility] Heart rate 2022-11-25 18:11:00 79 /min [facility] Body temperature 2022-11-25 18:11:00 36.39 Cris [facility] Body height 2022-11-25 18:11:00 175.3 cm [facility] Body weight 2022-11-25 18:11:00 92.08 kg [facility] BMI 2022-11-25 18:11:00 29.98 kg/m2 [facility] Oxygen saturation in Arterial blood by Pulse oximetry 2022-11-25 18:11:00 95 /min [facility] Systolic blood pressure 2022-10-21 14:58:00 132 mm[Hg] [place] [facility] Diastolic blood pressure 2022-10-21 14:58:00 80 mm[Hg] [facility] Heart rate 2022-10-21 14:54:00 83 /min [facility] Body temperature 2022-10-21 14:54:00 36.44 Cris [facility] Body height 2022-10-21 14:54:00 175.3 cm [facility] Body weight 2022-10-21 14:54:00 88.769 kg [facility] BMI 2022-10-21 14:54:00 28.90 kg/m2 [facility] Oxygen saturation in Arterial blood by Pulse oximetry 2022-10-21 14:54:00 98 /min [facility] Systolic blood pressure 2022-10-15 19:08:00 137 mm[Hg] [facility] Diastolic blood pressure 2022-10-15 19:08:00 78 mm[Hg] [facility] Heart rate 2022-10-15 19:08:00 70 /min [facility] Body temperature 2022-10-15 19:08:00 36.89 Cris [facility] Body height 2022-10-15 19:08:00 175.3 cm [facility] Body weight 2022-10-15 19:08:00 90.629 kg [facility] BMI 2022-10-15 19:08:00 29.51 kg/m2 [facility] Oxygen saturation in Arterial blood by Pulse oximetry 2022-10-15 19:08:00 97 /min [facility] Systolic blood pressure 2022-08-26 19:04:00 157 mm[Hg] [facility] Diastolic blood pressure 2022-08-26 19:04:00 88 mm[Hg] [facility] Heart rate 2022-08-26 19:04:00 75 /min [facility] Oxygen saturation in Arterial blood by Pulse oximetry 2022-08-26 19:04:00 100 /min [facility] Body temperature 2022-08-26 19:03:00 35.83 Cris [facility] Body height 2022-08-26 19:03:00 175.3 cm [facility] Body weight 2022-08-26 19:03:00 93.895 kg [facility] BMI 2022-08-26 19:03:00 30.57 kg/m2 [facility] Systolic blood pressure 2022-07-30 20:42:00 140 mm[Hg] [facility] Diastolic blood pressure 2022-07-30 20:42:00 74 mm[Hg] [facility] Heart rate 2022-07-30 20:41:00 82 /min [facility] Body temperature 2022-07-30 20:41:00 36.67 Cris [facility] Respiratory rate 2022-07-30 20:41:00 18 /min [facility] Body height 2022-07-30 20:41:00 175.3 cm [facility] Body weight 2022-07-30 20:41:00 94.756 kg [facility] BMI 2022-07-30 20:41:00 30.85 kg/m2 [facility] Oxygen saturation in Arterial blood by Pulse oximetry 2022-07-30 20:41:00 97 /min [facility] Systolic blood pressure 2022-07-17 19:32:00 148 mm[Hg] [facility] Diastolic blood pressure 2022-07-17 19:32:00 82 mm[Hg] [facility] Heart rate 2022-07-17 19:32:00 80 /min [facility] Oxygen saturation in Arterial blood by Pulse oximetry 2022-07-17 19:32:00 99 /min [facility] Body temperature 2022-07-17 19:31:00 35.94 Cris [facility] Body height 2022-07-17 19:31:00 177.8 cm [facility] Body weight 2022-07-17 19:31:00 95.255 kg [facility] BMI 2022-07-17 19:31:00 30.13 kg/m2 [facility] Body height 2022-05-16 14:43:00 177.8 cm [facility] Systolic blood pressure 2022-05-07 16:21:00 136 mm[Hg] [facility] Diastolic blood pressure 2022-05-07 16:21:00 72 mm[Hg] [facility] Heart rate 2022-05-07 15:42:00 85 /min [facility] Body temperature 2022-05-07 15:42:00 35.94 Cris [facility] Respiratory rate 2022-05-07 15:42:00 18 /min [facility] Body height 2022-05-07 15:42:00 177.8 cm [facility] Body weight 2022-05-07 15:42:00 93.895 kg [facility] BMI 2022-05-07 15:42:00 29.70 kg/m2 [facility] Oxygen saturation in Arterial blood by Pulse oximetry 2022-05-07 15:42:00 97 /min [facility] Systolic blood pressure 2022-03-12 21:48:00 145 mm[Hg] [facility] Diastolic blood pressure 2022-03-12 21:48:00 71 mm[Hg] [facility] Heart rate 2022-03-12 21:47:00 71 /min [facility] Body temperature 2022-03-12 21:47:00 36.5 Cris [facility] Body weight 2022-03-12 21:47:00 94.575 kg [facility] BMI 2022-03-12 21:47:00 30.79 kg/m2 [facility] Systolic blood pressure 2022-02-04 16:30:00 147 mm[Hg] [facility] Diastolic blood pressure 2022-02-04 16:30:00 83 mm[Hg] [facility] Heart rate 2022-02-04 16:29:00 82 /min [facility] 2022-02-04 16:29:00 18 /min [facility] Body height 2022-02-04 16:29:00 175.3 cm [facility] Body weight 2022-02-04 16:29:00 90.266 kg [facility] BMI 2022-02-04 16:29:00 29.39 kg/m2 [facility] Oxygen saturation in Arterial blood by Pulse oximetry 2022-02-04 16:29:00 97 /min [facility] Systolic blood pressure 2022-01-28 15:28:00 145 mm[Hg] [facility] Diastolic blood pressure 2022-01-28 15:28:00 88 mm[Hg] [facility] Heart rate 2022-01-28 15:28:00 74 /min [facility] Oxygen saturation in Arterial blood by Pulse oximetry 2022-01-28 15:28:00 99 /min [facility] Body temperature 2022-01-28 15:27:00 36.67 Cris [facility] Respiratory rate 2022-01-28 15:27:00 16 /min [facility] Body height 2022-01-28 15:27:00 175.3 cm [facility] Body weight 2022-01-28 15:27:00 93.94 kg [facility] BMI 2022-01-28 15:27:00 30.58 kg/m2 [facility] Systolic blood pressure 2021-12-26 19:54:00 133 mm[Hg] [facility] Diastolic blood pressure 2021-12-26 19:54:00 67 mm[Hg] [facility] Body height 2021-12-26 19:52:00 175.3 cm [facility] Body weight 2021-12-26 19:52:00 91.853 kg [facility] BMI 2021-12-26 19:52:00 29.90 kg/m2 [facility] Oxygen saturation in Arterial blood by Pulse oximetry 2021-12-26 19:52:00 94 /min [facility] Heart rate 2021-12-26 19:52:00 94 /min [facility] Body temperature 2021-12-26 19:52:00 36.22 Cris [facility] Respiratory rate 2021-12-26 19:52:00 18 /min [facility] Procedures Procedure Date / Time Performed Performing Clinician Source TDAP VACCINE, >11 YRS, IM 2024-01-21 13:27:55 Abner Monaco [facility] SARS-COV-2 COVID 19 BRITTANEY SUCROSE VACCINE 12+, , 0.3 ML (30 MCG), IM PFIZER (ROCHA TOP) 2024-01-21 13:27:55 Abner Rivera [facility] FLU VACC(),65+YR,0.5 ML,IM,ADJUVANTED,TIV(FLUAD ) 2024-01-13 14:50:29 Tomeka Reed [facility] INTACT PTH CALCIUM GROUP 2024-01-05 21:20:00 Marcella Jolly im [facility] EXTERNAL DD-CFDNA 2024-01-05 05:00:00 Behzad Jolly [facility] FREE T4 2023-10-07 15:37:00 Nicolle Suresh [facility] THYROID STIMULATING HORMONE 2023-10-07 15:37:00 [facility] COMP. METABOLIC PANEL (66053) 2023-10-07 15:37:00 Nicolle Suresh [facility] LIPID PANEL (84145)(TOTAL CHOLESTEROL, TRIGLYCERIDES, HDL) 2023-10-07 15:37:00 Nicolle Suresh [facility] CBC WITH DIFF 2023-10-07 15:37:00 Nicolle Suresh [facility] GLYCOSYLATED HEMOGLOBIN (A1C) 2023-10-07 15:37:00 [facility] URINALYSIS 2023-10-07 15:37:00 [facility]SE (AUTOMATED) 2023-07-17 13:43:00 Lick, José Miguelo tt [facility] TACROLIMUS, LEVEL 2023-07-17 10:17:00 Parminder Rueda As if [facility] POCT GLUCOSE (AUTOMATED) 2023-07-17 08:23:00 Lick, Sco tt [facility] POCT GLUCOSE (AUTOMATED) 2023-07-17 04:13:00 Lick, Sco tt [facility] POCT GLUCOSE (AUTOMATED) 2023-07-17 01:23:00 Lick, Sco tt [facility] POCT GLUCOSE (AUTOMATED) 2023-07-16 22:11:00 Lick, Sco tt [facility] POCT GLUCOSE (AUTOMATED) 2023-07-16 16:39:00 Lick, Sco tt [facility] POCT GLUCOSE (AUTOMATED) 2023-07-16 12:33:00 Lick, Sco tt [facility] POCT GLUCOSE (AUTOMATED) 2023-07-16 08:30:00 Lick, Sco tt [facility] POCT GLUCOSE (AUTOMATED) 2023-07-16 04:16:00 Lick, Sco tt [facility] BASIC METABOLIC PANEL (NA, K, CL, CO2, GLUCOSE, BUN, CREATININE, CA) 2023-07-15 22:41:00 Pam Stearns [facility] TACROLIMUS, LEVEL 2023-07-15 22:41:00 Pam Stearns [facility] POCT GLUCOSE (AUTOMATED) 2023-07-15 21:18:00 Lick, Sco tt [facility] POCT GLUCOSE (AUTOMATED) 2023-07-15 16:50:00 Lick, Sco tt [facility] POCT GLUCOSE (AUTOMATED) 2023-07-15 12:38:00 Lick, Sco tt [facility] POCT GLUCOSE (AUTOMATED) 2023-07-15 09:39:00 Lick, Sco tt [facility] POCT GLUCOSE (AUTOMATED) 2023-07-15 05:18:00 Lick, Sco tt [facility] POCT GLUCOSE (AUTOMATED) 2023-07-15 02:22:00 Lick, Sco tt [facility] POCT GLUCOSE (AUTOMATED) 2023-07-14 21:00:00 Lick, Sco tt [facility] POCT GLUCOSE (AUTOMATED) 2023-07-14 16:40:00 Lick, Sco tt [facility] POCT GLUCOSE (AUTOMATED) 2023-07-14 12:34:00 Lick, Sco tt [facility] POCT GLUCOSE (AUTOMATED) 2023-07-14 09:28:00 Lick, Sco tt [facility] POCT GLUCOSE (AUTOMATED) 2023-07-14 05:05:00 Lick, Sco tt [facility] POCT GLUCOSE (AUTOMATED) 2023-07-14 02:35:00 Lick, Sco tt [facility] POCT GLUCOSE (AUTOMATED) 2023-07-13 20:41:00 Lick, Sco tt [facility] POCT GLUCOSE (AUTOMATED) 2023-07-13 16:57:00 Lick, Sco tt [facility] POCT GLUCOSE (AUTOMATED) 2023-07-13 13:06:00 Lick, Sco tt [facility] XR CHEST 2 VW 2023-07-13 11:41:24 Elidia Raphael [facility] TACROLIMUS, LEVEL 2023-07-13 09:51:00 Parminder Rueda if [facility] POCT GLUCOSE (AUTOMATED) 2023-07-13 08:10:00 Lick, Sco tt [facility] POCT GLUCOSE (AUTOMATED) 2023-07-13 04:11:00 Lick, Sco tt [facility] POCT GLUCOSE (AUTOMATED) 2023-07-13 00:34:00 Lick, Sco tt [facility] POCT GLUCOSE (AUTOMATED) 2023-07-12 21:30:00 Lick, Sco tt [facility] POCT GLUCOSE (AUTOMATED) 2023-07-12 16:49:00 Lick, Sco tt [facility] POCT GLUCOSE (AUTOMATED) 2023-07-12 12:51:00 Lick, Sco tt [facility] BASIC METABOLIC PANEL (NA, K, CL, CO2, GLUCOSE, BUN, CREATININE, CA) 2023-07-12 09:53:00 Elidia Aragon [facility] TACROLIMUS, LEVEL 2023-07-12 09:53:00 Parminder Rueda As if [facility] CBC WITH DIFF 2023-07-12 09:53:00 Elidia Raphael [facility] POCT GLUCOSE (AUTOMATED) 2023-07-12 09:52:00 Lick, Sco tt [facility] POCT GLUCOSE (AUTOMATED) 2023-07-12 05:11:00 Lick, Sco tt [facility] POCT GLUCOSE (AUTOMATED) 2023-07-12 01:40:00 Lick, José Miguelo tt [facility] EKG-12 LEAD 2023-07-12 00:21:45 Jt Doyle [facility] MAGNESIUM 2023-07-12 00:09:00 Allen Patterson Ignacio [facility] BASIC METABOLIC PANEL (NA, K, CL, CO2, GLUCOSE, BUN, CREATININE, CA) 2023-07-12 00:09:00 Allen Townsend Ignacio [facility] HB ECG ROUTINE & RHYTHM STRIP 2023-07-12 00:05:30 Allen Townsend Ignacio [facility] EKG-12 LEAD 2023-07-11 23:50:46 Licvirginie [facility] POCT GLUCOSE (AUTOMATED) 2023-07-11 21:18:00 Lick, Sco tt [facility] POCT GLUCOSE (AUTOMATED) 2023-07-11 20:38:00 Lick, Sco tt [facility] CBC WITH DIFF 2023-07-11 16:23:00 Savanna Salinas [facility] POCT GLUCOSE (AUTOMATED) 2023-07-11 16:22:00 Lick, Sco tt [facility] TRANSFUSE PACKED RBC 2023-07-11 14:15:00 Tequila Brown [facility] PREPARE PACKED RBC 2023-07-11 14:05:53 Isauro Brown [facility] POCT GLUCOSE (AUTOMATED) 2023-07-11 13:00:00 Damian Doyle [facility] HB ABO GROUPING 2023-07-11 12:08:00 [facility]23-[facility]-11 11:33:00 [facility]23-07[facility]11 10:19[facility]00 [facility]11 10:19:00 [facility]uro [facility] BASIC METABOLIC PANEL (NA, K, CL, CO2, GLUCOSE, BUN, CREATININE, CA) 2023-07-11 10:19:00 Isauro Brown [facility] TACROLIMUS, LEVEL 2023-07-11 10:19:00 Parminder Rueda As if [facility] CBC WITHOUT DIFF 2023-07-11 10:19:00 Isauro Brown [facility] POCT GLUCOSE (AUTOMATED) 2023-07-11 10:17:00 Damian Doyle [facility] POCT GLUCOSE (AUTOMATED) 2023-07-11 07:11:00 Damian Doyle [facility] POCT GLUCOSE (AUTOMATED) 2023-07-11 01:59:00 ChuykDamian [facility] POCT GLUCOSE (AUTOMATED) 2023-07-10 22:10:00 LickJosé Miguelo carmen [facility] POCT GLUCOSE (AUTOMATED) 2023-07-10 16:42:00 ChuykDamian [facility] XR KUB 2023-07-10 16:24:00 Kristofer Fitch [facility] TACROLIMUS, LEVEL 2023-07-10 15:41:00 Mookie Landis in [facility] POCT GLUCOSE (AUTOMATED) 2023-07-10 12:56:00 LickDamian [facility] PHOSPHORUS 2023-07-10 09:21:00 Kevin Isauro [facility] MAGNESIUM 2023-07-10 09:21:00 Kevin Isauro [facility] BASIC METABOLIC PANEL (NA, K, CL, CO2, GLUCOSE, BUN, CREATININE, CA) 2023-07-10 09:21:00 Isauro Brown [facility] CBC WITHOUT DIFF 2023-07-10 09:21:00 Isauro Brown [facility] AC PANEL 20 + LACTIC ACID 2023-07-10 09:21[facility]00 [facility] 2023-07-10 05:26:00 Damian Doyle [facility] POCT GLUCOSE (AUTOMATED) 2023-07-10 01:47:00 Damian Doyle [facility] AC PANEL 20 + LACTIC ACID 2023-07-09 17:42:00 Constantine [facility] AC PANEL 20 + LACTIC ACID 2023-07-09 17:42:00 Constantine [facility] AC PANEL 20 + LACTIC ACID 2023-07-09 17:42:00 Constantine [facility] POCT GLUCOSE (AUTOMATED) 2023-07-09 13:20:00 ChuykDamian [facility] POCT GLUCOSE (AUTOMATED) 2023-07-09 13:20:00 LickDamian [facility] POCT GLUCOSE (AUTOMATED) 2023-07-09 13:20:00 ChuykDamian [facility] PHOSPHORUS 2023-07-09 09:07:00 Darling Nolen [facility] MAGNESIUM 2023-07-09 09:07:00 Darling Nolen [facility] BASIC METABOLIC PANEL (NA, K, CL, CO2, GLUCOSE, BUN, CREATININE, CA) 2023-07-09 09:07:00 Kerry Nolen [facility] CBC WITH DIFF 2023-07-09 09:07:00 Darling Nolen [facility] PROTHROMBIN TIME / INR 2023-07-09 09:07:00 Vasqu ezKerry [facility] PHOSPHORUS 2023-07-09 09:07:00 Nolen, Nor nelson [facility] MAGNESIUM 2023-07-09 09:07:00 Nolen, Nor a [facility] BASIC METABOLIC PANEL (NA, K, CL, CO2, GLUCOSE, BUN, CREATININE, CA) 2023-07-09 09:07:00 NolenKerry [facility] CBC WITH DIFF 2023-07-09 09:07:00 Nolen, Nor nelson [facility] PROTHROMBIN TIME / INR 2023-07-09 09:07:00 Vasqu ezKerry [facility] PHOSPHORUS 2023-07-09 09:07:00 Nolne, Nor nelson [facility] MAGNESIUM 2023-07-09 09:07:00 Nolen, Nor a [facility] BASIC METABOLIC PANEL (NA, K, CL, CO2, GLUCOSE, BUN, CREATININE, CA) 2023-07-09 09:07:00 Nolen, Kerry [facility] CBC WITH DIFF 2023-07-09 09:07:00 Nolen, Nor nelson [facility] PROTHROMBIN TIME / INR 2023-07-09 09:07:00 Vasqu ezKerry [facility] POCT GLUCOSE (AUTOMATED) 2023-07-09 09:06:00 Lick, Sco tt [facility] POCT GLUCOSE (AUTOMATED) 2023-07-09 09:06:00 Lick, Sco tt [facility] POCT GLUCOSE (AUTOMATED) 2023-07-09 09:06:00 Lick, Sco tt [facility] XR CHEST 1 VW 2023-07-09 08:54:00 Nolen, Nor a [facility] XR CHEST 1 VW 2023-07-09 08:54:00 Nolen, Nor a [facility] XR CHEST 1 VW 2023-07-09 08:54:00 Nolen, Nor a [facility] POCT GLUCOSE (AUTOMATED) 2023-07-09 07:34:00 Lick, Sco tt [facility] POCT GLUCOSE (AUTOMATED) 2023-07-09 07:34:00 Lick, Sco tt [facility] POCT GLUCOSE (AUTOMATED) 2023-07-09 07:34:00 Lick, Sco tt [facility] CBC WITH DIFF 2023-07-09 07:26:00 Savanna Salinas [facility] CBC WITH DIFF 2023-07-09 07:26:00 Savanna Salinas [facility] CBC WITH DIFF 2023-07-09 07:26:00 Savanna Salinas [facility] POCT GLUCOSE (AUTOMATED) 2023-07-09 04:40:00 Lick, Sco tt [facility] POCT GLUCOSE (AUTOMATED) 2023-07-09 04:40:00 Lick, Sco tt [facility] POCT GLUCOSE (AUTOMATED) 2023-07-09 04:40:00 Lick, Sco tt [facility] TRANSFUSE PACKED RBC 2023-07-09 04:25:00 Darron Salinas [facility] TRANSFUSE PACKED RBC 2023-07-09 04:25:00 Darron Salinas [facility] TRANSFUSE PACKED RBC 2023-07-09 04:25:00 Darron Salinas [facility] PREPARE PACKED RBC 2023-07-09 04:15:12 Savanna Salinas [facility] PREPARE PACKED RBC 2023-07-09 04:15:12 Savanna Salinas [facility] PREPARE PACKED RBC 2023-07-09 04:15:12 Savanna Salinas [facility] XR CHEST 1 VW 2023-07-09 03:26:19 Savanna Salinas [facility] XR CHEST 1 VW 2023-07-09 03:26:19 Savanna Salinas [facility] XR CHEST 1 VW 2023-07-09 03:26:19 Savanna Salinas [facility] PREPARE PACKED RBC 2023-07-09 02:54:21 [facility] 2023-07-09 02:54:21 [facility]Julio [facility] 2023-07-09 02:54:21 JovitaJulio [facility] AC PANEL 20 + LACTIC ACID 2023-07-09 02:42:00 Constantine [facility] AC PANEL 20 + LACTIC ACID 2023-07-09 02:42:00 Constantine [facility] AC PANEL 20 + LACTIC ACID 2023-07-09 02:42:00 Constantine [facility] BASIC METABOLIC PANEL (NA, K, CL, CO2, GLUCOSE, BUN, CREATININE, CA) 2023-07-09 02:41:00 Savanna Salinas [facility] CBC WITH DIFF 2023-07-09 02:41:00 Savanna Salinas [facility] PROTHROMBIN TIME / INR 2023-07-09 02:41:00 Nazario Salinas [facility] ACTIVATED PARTIAL THRMPLAS ROSEMARY 2023-07-09 02:41:00 Savanna Salinas [facility] BASIC METABOLIC PANEL (NA, K, CL, CO2, GLUCOSE, BUN, CREATININE, CA) 2023-07-09 02:41:00 Savanna Salinas [facility] CBC WITH DIFF 2023-07-09 02:41:00 Savanna Salinas [facility] PROTHROMBIN TIME / INR 2023-07-09 02:41:00 Nazario Salinas [facility] ACTIVATED PARTIAL THRMPLAS ROSEMARY 2023-07-09 02:41:00 Savanna Salinas [facility] BASIC METABOLIC PANEL (NA, K, CL, CO2, GLUCOSE, BUN, CREATININE, CA) 2023-07-09 02:41:00 Savanna Salinas [facility] CBC WITH DIFF 2023-07-09 02:41:00 Savanna Salinas [facility] PROTHROMBIN TIME / INR 2023-07-09 02:41:00 Nazario Salinas [facility] ACTIVATED PARTIAL THRMPLAS ROSEMARY 2023-07-09 02:41:00 Savanna Salinas [facility] TRANSFUSE PLATELETS 2023-07-09 01:47:00 Volcrista Julio U [facility] TRANSFUSE PLATELETS 2023-07-09 01:47:00 Volnov, [facility] 2023-07-09 01:47:00 Volnov, Julio [facility]TS 2023-07-09 01:44:00 Volnov, Julio [facility] TRANSF[facility]LETS 2023-07-09 01:44:00 Volnov, Julio [facility] TRANSF[facility]ATELETS 2023-07-09 01:44:00 Volnov, Julio [facility] PREP[facility]LETS 2023-07-09 01:38:45 Volnov, Julio Uni [facility] PREPARE PLATELETS 2023-07-09 01:38:45 Volnov, Julio [facility] PREPARE PLATELETS 2023-07-09 01:38:45 Volnov, Julio Uni [facility] TRANSFUSE PACKED RBC 2023-07-09 01:30:00 Darron Salinas [facility] TRANSFUSE PACKED RBC 2023-07-09 01:30:00 Darron Salinas [facility] TRANSFUSE PACKED RBC 2023-07-09 01:30:00 Darron Salinas [facility] ABG+COOX+NA+K+GLU+CA2+ 2023-07-09 01:24:00 Jt Doyle [facility] ACUTE CARE ARTERIAL 2023-07-09 01:17:00 José Miguel Doyle [facility] ACUTE CARE ARTERIAL 2023-07-09 01:17:00 José Miguel Doyle [facility] ACUTE CARE ARTERIAL 2023-07-09 01:17:00 José Miguel Doyle [facility] CHEST EXPLORATION 2023-07-09 00:33:00 Jt Doyle [facility] CHEST EXPLORATION 2023-07-09 00:33:00 Jt Doyle [facility] ACTIVATED PARTIAL THRMPLAS ROSEMARY 2023-07-09 00:27:00 Nicole Rocha [facility] ACTIVATED PARTIAL THRMPLAS ROSEMARY 2023-07-09 00:27:00 Nicole Rocha [facility] ACTIVATED PARTIAL THRMPLAS ROSEMARY 2023-07-09 00:27:00 Nicole Rocha [facility] PHOSPHORUS 2023-07-08 23:53:00 Kari Peter [facility] MAGNESIUM 2023-07-08 23:53:00 Kari Peter [facility] BASIC METABOLIC PANEL (NA, K, CL, CO2, GLUCOSE, BUN, CREATININE, CA) 2023-07-08 23:53:00 Pippa Peter [facility] CBC WITH DIFF 2023-07-08 23:53:00 Kari Peter [facility] PROTHROMBIN TIME / INR 2023-07-08 23:53:00 Pippa Peter [facility] ACTIVATED PARTIAL THRMPLAS ROSEMARY 2023-07-08 23:53:00 Pippa Peter [facility] FIBRINOGEN 2023-07-08 23:53:00 Kari Peter [facility] PHOSPHORUS 2023-07-08 23:53:00 Kari Peter [facility] MAGNESIUM 2023-07-08 23:53:00 Kari Peter [facility] BASIC METABOLIC PANEL (NA, K, CL, CO2, GLUCOSE, BUN, CREATININE, CA) 2023-07-08 23:53:00 Pippa Peter [facility] CBC WITH DIFF 2023-07-08 23:53:00 Kari Peter [facility] PROTHROMBIN TIME / INR 2023-07-08 23:53:00 Pippa Peter [facility] ACTIVATED PARTIAL THRMPLAS ROSEMARY 2023-07-08 23:53:00 Pippa Peter [facility] FIBRINOGEN 2023-07-08 23:53:00 Kari Peter [facility] PHOSPHORUS 2023-07-08 23:53:00 Kari Peter [facility] MAGNESIUM 2023-07-08 23:53:00 Kari Peter [facility] BASIC METABOLIC PANEL (NA, K, CL, CO2, GLUCOSE, BUN, CREATININE, CA) 2023-07-08 23:53:00 Pippa Peter [facility] CBC WITH DIFF 2023-07-08 23:53:00 Kari Peter [facility] PROTHROMBIN TIME / INR 2023-07-08 23:53:00 Pippa [facility] [facility] [place] ACTIVATED PARTIAL THRMPLAS ROSEMARY 2023-07-08 23:53:00 Pippa Peter [facility] FIBRINOGEN 2023-07-08 23:53:00 Kari Peter [facility] HB ECG ROUTINE & RHYTHM STRIP 2023-07-08 19:44:47 [facility] & RHYTHM STRIP 2023-07-08 19:44:47 Kerry Nolen [facility] HB ECG ROUTINE & RHYTHM STRIP 2023-07-08 19:44:47 Kerry Nolen [facility] XR ABDOMEN 1 VW 2023-07-08 19:39:19 Callum, Nor nelson [facility] XR CHEST 1 VW 2023-07-08 19:39:19 Callum, Nor nelson [facility] XR ABDOMEN 1 VW 2023-07-08 19:39:19 Callum, Nor nelson [facility] XR CHEST 1 VW 2023-07-08 19:39:19 Callum, Nor nelson [facility] XR ABDOMEN 1 2023-07-08 19:39:19 Callum, Nor nelson [facility] XR CHEST 1 2023-07-08 19:39:19 Callum, Nor nelson [facility] AC PANEL 20 + LACTIC ACID 2023-07-08 19:17:00 Constantine [facility] AC PANEL 20 + LACTIC ACID 2023-07-08 19:17:00 Constantine [facility] AC PANEL 20 + LACTIC ACID 2023-07-08 19:17:00 Kristofer Fitch [facility] PROTHROMBIN TIME / INR 2023-07-08 19:15:00 Sammy sosa [facility] ACTIVATED PARTIAL THRMPLAS ROSEMARY 2023-07-08 19:15:00 Tez Carrasco [facility] FIBRINOGEN 2023-07-08 19:15:00 SahChandra green [facility] PROTHROMBIN TIME / INR 2023-07-08 19:15:00 Sahib zada, [facility] ACTIVATED PARTIAL THRMPLAS ROSEMARY 2023-07-08 19:15:00 Luna Tez [facility] FIBRINOGEN 2023-07-08 19:15:00 SammyzadaChandra [facility] PROTHROMBIN TIME / INR 2023-07-08 19:15:00 Sammy sosa Te[facility] ACTIVATED PARTIAL THRMPLAS ROSEMARY 2023-07-08 19:15:00 Sahibzada Tez [facility] FIBRINOGEN 2023-07-08 19:15:00 Chandra Carrasco [facility] PHOSPHORUS 2023-07-08 19:13:00 Darling Nolen [facility] MAGNESIUM 2023-07-08 19:13:00 Darling Nolen [facility] BASIC METABOLIC PANEL (NA, K, CL, CO2, GLUCOSE, BUN, CREATININE, CA) 2023-07-08 19:13:00 [facility] WITH DIFF 2023-07-08 19:13:00 Darling Nolen [facility] PHOSPHORUS 2023-07-08 19:13:00 Darling Nolen [facility] MAGNESIUM 2023-07-08 19:13:00 Darlnig Nolen [facility] BASIC METABOLIC PANEL (NA, K, CL, CO2, GLUCOSE, BUN, CREATININE, CA) 2023-07-08 19:13:00 [facility] 2023-07-08 19:13:00 [facility] 2023-07-08 19:13:00 [facility] 2023-07-08 19:13:00 Callum, Darling damon [facility] BASIC METABOLIC PANEL (NA, K, CL, CO2, GLUCOSE, BUN, CREATININE, CA) 2023-07-08 19:13:00 [facility] 2023-07-08 19:13:00 Darling Nolen [facility] ABG+COOX+NA+K+GLU+CA2+ 2023-07-08 18:33:00 Javon [facility] ACUTE CARE ARTERIAL 2023-07-08 17:48:00 Mukesh [facility] ACUTE CARE ARTERIAL 2023-07-08 17:48:00 Mukesh [facility] ACUTE CARE ARTERIAL 2023-07-08 17:48:00 Mukesh [facility] ABG+COOX+NA+K+GLU+CA2+ 2023-07-08 17:39:00 Javon [facility] ACUTE CARE ARTERIAL 2023-07-08 17:10:00 Mukesh [facility] ACUTE CARE ARTERIAL 2023-07-08 17:10:00 Mukesh [facility] ACUTE CARE ARTERIAL 2023-07-08 17:10:00 Mukesh [facility] ACUTE CARE ARTERIAL 2023-07-08 16:40:00 Mukesh [facility] ACUTE CARE ARTERIAL 2023-07-08 16:40:00 Mukesh [facility] ACUTE CARE ARTERIAL 2023-07-08 16:40:00 Mukesh [facility] ACUTE CARE ARTERIAL 2023-07-08 16:11:00 Mukesh [facility] ACUTE CARE ARTERIAL 2023-07-08 16:11:00 Mukesh [facility] ACUTE CARE ARTERIAL 2023-07-08 16:11:00 Mukesh [facility] ACUTE CARE ARTERIAL 2023-07-08 15:47:00 Mukesh [facility] ACUTE CARE ARTERIAL 2023-07-08 15:47:00 Mukesh [facility] ACUTE CARE ARTERIAL 2023-07-08 15:47:00 Mukesh [facility] ACUTE CARE ARTERIAL 2023-07-08 15:14:00 Mukesh [facility] ACUTE CARE ARTERIAL 2023-07-08 15:14:00 Mukesh [facility] ACUTE CARE ARTERIAL 2023-07-08 15:14:00 Mukesh [facility] ACUTE CARE ARTERIAL 2023-07-08 13:15:00 Mukesh [facility] ACUTE CARE ARTERIAL 2023-07-08 13:15:00 Mukesh [facility] ACUTE CARE ARTERIAL 2023-07-08 13:15:00 Mukesh [facility] CORONARY ARTERY BYPASS GRAFT 2023-07-08 11:39:00 Lick [facility] ENDOSCOPIC VEIN HARVEST 2023-07-08 11:39:00 LicColt coles [facility] CORONARY ARTERY BYPASS GRAFT 2023-07-08 11:39:00 Lick [facility] ENDOSCOPIC VEIN HARVEST 2023-07-08 11:39:00 Colt Doyle [facility] MAGNESIUM 2023-07-08 10:37:00 Chandra Kinney [facility] BASIC METABOLIC PANEL (NA, K, CL, CO2, GLUCOSE, BUN, CREATININE, CA) 2023-07-08 10:37:00 Елена Kinney [facility] CBC WITH DIFF 2023-07-08 10:37:00 Chandra Kinney [facility] MAGNESIUM 2023-07-08 10:37:00 Chandra Kinney [facility] BASIC METABOLIC PANEL (NA, K, CL, CO2, GLUCOSE, BUN, CREATININE, CA) 2023-07-08 10:37:00 Елена Kinney [facility] CBC WITH DIFF 2023-07-08 10:37:00 Chandra Kinney [facility] MAGNESIUM 2023-07-08 10:37:00 Chandra Kinney [facility] BASIC METABOLIC PANEL (NA, K, CL, CO2, GLUCOSE, BUN, CREATININE, CA) 2023-07-08 10:37:00 Елена Kinney [facility] CBC WITH DIFF 2023-07-08 10:37:00 Chandra Kinney [facility] MAGNESIUM 2023-07-07 22:58:00 Chandra Kinney [facility] ACTIVATED PARTIAL THRMPLAS ROSEMARY 2023-07-07 22:58:00 Mukesh [facility] HB ABO GROUPING 2023-07-07 22:58:00 [facility] 2023-07-07 22:58:00 Chandra Kinney [facility] ACTIVATED PARTIAL THRMPLAS ROSEMARY 2023-07-07 22:58:00 Mukesh [facility] HB ABO GROUPING 2023-07-07 22:58:00 Wayne [facility] MAGNESIUM 2023-07-07 22:58:00 Chandra Kinney [facility] ACTIVATED PARTIAL THRMPLAS ROSEMARY 2023-07-07 22:58:00 Mukesh [facility] HB ABO GROUPING 2023-07-07 22:58:00 Wayne [facility] XR CHEST 2 VW 2023-07-07 13:58:00 Wayne Sotomyaor [facility] XR CHEST 2 VW 2023-07-07 13:58:00 Wayne Sotomayor [facility] XR CHEST 2 VW 2023-07-07 13:58:00 Elder Wayne [facility] XR CHEST 2 VW 2023-07-07 13:58:00 Bran Wayne [facility] MAGNESIUM 2023-07-07 10:37:00 [facility] BASIC METABOLIC PANEL (NA, K, CL, CO2, GLUCOSE, BUN, CREATININE, CA) 2023-07-07 10:37:00 Catalino [facility] CBC WITH DIFF 2023-07-07 10:37:00 [facility] ACTIVATED PARTIAL THRMPLAS ROSEMARY 2023-07-07 10:37:00 Jelani [facility] MAGNESIUM 2023-07-07 10:37:00 [facility] BASIC METABOLIC PANEL (NA, K, CL, CO2, GLUCOSE, BUN, CREATININE, CA) 2023-07-07 10:37:00 Catalino [facility] CBC WITH DIFF 2023-07-07 10:37:00 [facility] ACTIVATED PARTIAL THRMPLAS ROSEMARY 2023-07-07 10:37:00 Jelani [facility] MAGNESIUM 2023-07-07 10:37:00 [facility] BASIC METABOLIC PANEL (NA, K, CL, CO2, GLUCOSE, BUN, CREATININE, CA) 2023-07-07 10:37:00 Catalino [facility] CBC WITH DIFF 2023-07-07 10:37:00 [facility] ACTIVATED PARTIAL THRMPLAS ROSEMARY 2023-07-07 10:37:00 Jelani [facility] MAGNESIUM 2023-07-07 10:37:00 [facility] BASIC METABOLIC PANEL (NA, K, CL, CO2, GLUCOSE, BUN, CREATININE, CA) 2023-07-07 10:37[facility]23-07-07 10:37:00 [facility] THRMPLAS [facility]ARY 2023-07-07 10:37:00 Palomares, [facility] ACTIVATED PARTIAL THRMPLAS ROSEMARY 2023-07-07 05:01:00 Palomares, [facility] ACTIVATED PARTIAL THRMPLAS ROSEMARY 2023-07-07 05:01:00 Palomares, [facility] ACTIVATED PARTIAL THRMPLAS ROSEMARY 2023-07-07 05:01:00 Palomares, [facility] ACTIVATED PARTIAL THRMPLAS ROSEMARY 2023-07-07 05:01:00 Palomares, [facility] CAROTID DUPLEX BILATERAL - BY VASCULAR LAB 2023-07-06 18:25:00 Елена Kinney [facility] CAROTID DUPLEX BILATERAL - BY VASCULAR LAB 2023-07-06 18:25:00 Елена Kinney [facility] CAROTID DUPLEX BILATERAL - BY VASCULAR LAB 2023-07-06 18:25:00 Елена Kinney [facility] CAROTID DUPLEX BILATERAL - BY VASCULAR LAB 2023-07-06 18:25:00 Елена Kinney [facility] ACTIVATED PARTIAL THRMPLAS ROSEMARY 2023-07-06 16:55:00 Palomares, [facility] ACTIVATED PARTIAL THRMPLAS ROSEMARY 2023-07-06 16:55:00 Palomares, [facility] ACTIVATED PARTIAL THRMPLAS ROSEMARY 2023-07-06 16:55:00 Palomares, [facility] ACTIVATED PARTIAL THRMPLAS ROSEMARY 2023-07-06 16:55:00 Palomares, [facility] MAGNESIUM 2023-07-06 06:18:00 [facility] BASIC METABOLIC PANEL (NA, K, CL, CO2, GLUCOSE, BUN, CREATININE, CA) 2023-07-06 06:18:00 [facility] CBC WITH DIFF 2023-07-06 06:18:00 [facility] ACTIVATED PARTIAL THRMPLAS ROSEMARY 2023-07-06 06:18:00 Nicole Rocha [facility] MAGNESIUM 2023-07-06 06:18:00 [facility] BASIC METABOLIC PANEL (NA, K, CL, CO2, GLUCOSE, BUN, CREATININE, CA) 2023-07-06 06:18:00 [facility] CBC WITH DIFF 2023-07-06 06:18:00 [facility] ACTIVATED PARTIAL THRMPLAS ROSEMARY 2023-07-06 06:18:00 Nicole Rocha [facility] MAGNESIUM 2023-07-06 06:18:00 [facility] BASIC METABOLIC PANEL (NA, K, CL, CO2, GLUCOSE, BUN, CREATININE, CA) 2023-07-06 06:18:00 [facility] CBC WITH DIFF 2023-07-06 06:18:00 [facility] ACTIVATED PARTIAL THRMPLAS ROESMARY 2023-07-06 06:18:00 Nicole Rocha [facility] MAGNESIUM 2023-07-06 06:18:00 [facility] BASIC METABOLIC PANEL (NA, K, CL, CO2, GLUCOSE, BUN, CREATININE, CA) 2023-07-06 06:18:00 [facility] CBC WITH DIFF 2023-07-06 06:18:00 [facility] ACTIVATED PARTIAL THRMPLAS ROSEMARY 2023-07-06 06:18:00 Nicole Rocha [facility] ACTIVATED PARTIAL THRMPLAS ROSEMARY 2023-07-05 17:59:00 Nicole Rocha [facility] ACTIVATED PARTIAL THRMPLAS ROSEMARY 2023-07-05 17:59:00 Nicole Rocha [facility] ACTIVATED PARTIAL THRMPLAS ROSEMARY 2023-07-05 17:59:00 Nicole Rocha [facility] ACTIVATED PARTIAL THRMPLAS ROSEMARY 2023-07-05 17:59:00 Nicole Rocha [facility] MAGNESIUM 2023-07-05 11:38:00 [facility] BASIC METABOLIC PANEL (NA, K, CL, CO2, GLUCOSE, BUN, CREATININE, CA) 2023-07-05 11:38:00 Dell [facility] CBC WITH DIFF 2023-07-05 11:38:00 [facility] MAGNESIUM 2023-07-05 11:38:00 [facility] BASIC METABOLIC PANEL (NA, K, CL, CO2, GLUCOSE, BUN, CREATININE, CA) 2023-07-05 11:38:00 [facility] CBC WITH DIFF 2023-07-05 11:38:00 [facility] MAGNESIUM 2023-07-05 11:38:00 [facility] BASIC METABOLIC PANEL (NA, K, CL, CO2, GLUCOSE, BUN, CREATININE, CA) 2023-07-05 11:38:00 [facility] CBC WITH DIFF 2023-07-05 11:38:00 [facility] MAGNESIUM 2023-07-05 11:38:00 [facility] BASIC METABOLIC PANEL (NA, K, CL, CO2, GLUCOSE, BUN, CREATININE, CA) 2023-07-05 11:38:00 [facility] CBC WITH DIFF 2023-07-05 11:38:00 [facility] ACTIVATED PARTIAL THRMPLAS ROSEMARY 2023-07-05 08:16:00 Nicole Rocha [facility] ACTIVATED PARTIAL THRMPLAS ROSEMARY 2023-07-05 08:16:00 Nicole Rocha [facility] ACTIVATED PARTIAL THRMPLAS ROSEMARY 2023-07-05 08:16:00 Nicole Rocha [facility] ACTIVATED PARTIAL THRMPLAS ROSEMARY 2023-07-05 08:16:00 Nicole Rocha [facility] CARDIAC CATHETERIZATION 2023-07-04 22:36:00 Nelson Mayorga [facility] CARDIAC CATHETERIZATION 2023-07-04 22:36:00 Nelson Mayorga [facility] CARDIAC CATHETERIZATION 2023-07-04 22:36:00 Nelson Mayorga [facility] CARDIAC CATHETERIZATION 2023-07-04 22:36:00 Albaeni, A [facility] CARDIAC CATHETERIZATION 2023-07-04 22:36:00 Albaeni, A [facility] CARDIAC CATHETERIZATION 2023-07-04 22:36:00 Albaeni, A [facility] CARDIAC CATHETERIZATION 2023-07-04 22:36:00 Albaeni, A [facility] CARDIAC CATHETERIZATION 2023-07-04 22:36:00 Albaeni, A [facility] CARDIAC CATHETERIZATION 2023-07-04 22:36:00 Albaeni, A [facility] CARDIAC CATHETERIZATION 2023-07-04 22:36:00 Albaeni, A [facility] CARDIAC CATHETERIZATION 2023-07-04 22:36:00 Albaeni, A [facility] CARDIAC CATHETERIZATION 2023-07-04 22:36:00 Albaeni, A [facility] MAGNESIUM 2023-07-04 16:24:00 [facility] (NA, K, CL, CO2, GLUCOSE, BUN, CREATININE, CA) 2023-07-04 16:24:00 [facility] MAGNESIUM 2023-07-04 16:24:00 [facility] BASIC METABOLIC PANEL (NA, K, CL, CO2, GLUCOSE, BUN, CREATININE, CA) 2023-07-04 16:24:00 Catalino [facility] MAGNESIUM 2023-07-04 16:24:00 [facility] BASIC METABOLIC PANEL (NA, K, CL, CO2, GLUCOSE, BUN, CREATININE, CA) 2023-07-04 16:24:00 [facility] MAGNESIUM 2023-07-04 16:24:00 [facility] BASIC METABOLIC PANEL (NA, K, CL, CO2, GLUCOSE, BUN, CREATININE, CA) 2023-07-04 16:24:00 [facility] ACTIVATED PARTIAL THRMPLAS ROSEMARY 2023-07-04 15:46:00 Palomares, [facility] ACTIVATED PARTIAL THRMPLAS ROSEMARY 2023-07-04 15:46:00 Palomares, [facility] ACTIVATED PARTIAL THRMPLAS ROSEMARY 2023-07-04 15:46:00 Palomares, [facility] ACTIVATED PARTIAL THRMPLAS ROSEMARY 2023-07-04 15:46:00 Palomares, [facility] MAGNESIUM 2023-07-04 11:34:00 SidiqCapo Uni [facility] BASIC METABOLIC PANEL (NA, K, CL, CO2, GLUCOSE, BUN, CREATININE, CA) 2023-07-04 11:34:00 SidiqCapo [facility] CBC WITH DIFF 2023-07-04 11:34:00 SidCapo rose Un [facility] MAGNESIUM 2023-07-04 11:34:00 Sidiq, [place] [facility] BASIC METABOLIC PANEL (NA, K, CL, CO2, GLUCOSE, BUN, CREATININE, CA) 2023-07-04 11:34:00 SidCapo rose [facility] CBC WITH DIFF 2023-07-04 11:34:00 SidiqCapo [facility] MAGNESIUM 2023-07-04 11:34:00 Sidiq, [place] [facility] BASIC METABOLIC PANEL (NA, K, CL, CO2, GLUCOSE, BUN, CREATININE, CA) 2023-07-04 11:34:00 SidCapo rose [facility] CBC WITH DIFF 2023-07-04 11:34:00 SidiqCapo [facility] MAGNESIUM 2023-07-04 11:34:00 Sidiq, [place] [facility] BASIC METABOLIC PANEL (NA, K, CL, CO2, GLUCOSE, BUN, CREATININE, CA) 2023-07-04 11:34:00 SidiqCapo [facility] CBC WITH DIFF 2023-07-04 11:34:00 SidiqCapo Un [facility] ACTIVATED PARTIAL THRMPLAS ROSEMARY 2023-07-04 03:21:00 Albaeni, [facility] ACTIVATED PARTIAL THRMPLAS ROSEMARY 2023-07-04 03:21:00 Mukesh [facility] ACTIVATED PARTIAL THRMPLAS ROSEMARY 2023-07-04 03:21:00 Mukesh [facility] ACTIVATED PARTIAL THRMPLAS ROSEMARY 2023-07-04 03:21:00 Mukesh [facility] MAGNESIUM 2023-07-03 19:56:00 Sidiq, Capo [facility] MAGNESIUM 2023-07-03 19:56:00 Sidiq, Capo Mohinder [facility] MAGNESIUM 2023-07-03 19:56:00 [facility]idiq, [facility]-03 19:56:00 Sidiq, Capo [facility] ACTIVATED PARTIAL THRMPLAS ROSEMARY 2023-07-03 16:57:00 Palomares, [facility] ACTIVATED PARTIAL THRMPLAS ROSEMARY 2023-07-03 16:57:00 Palomares, [facility] ACTIVATED PARTIAL THRMPLAS ROSEMARY 2023-07-03 16:57:00 Palomares, [facility] ACTIVATED PARTIAL THRMPLAS ROSEMARY 2023-07-03 16:57:00 Palomares, [facility] TRANSTHORACIC ECHO (TTE) COMPLETE W/ CONTRAST 2023-07-03 16:56:57 Palomares, [facility] TRANSTHORACIC ECHO (TTE) COMPLETE W/ CONTRAST 2023-07-03 16:56:57 Palomares, [facility] TRANSTHORACIC ECHO (TTE) COMPLETE W/ CONTRAST 2023-07-03 16:56:57 Palomares, [facility] TRANSTHORACIC ECHO (TTE) COMPLETE W/ CONTRAST 2023-07-03 16:56:57 Palomares, [facility] HB ECG ROUTINE & RHYTHM STRIP 2023-07-03 14:35:42 Sidiq [facility] HB ECG ROUTINE & RHYTHM STRIP 2023-07-03 14:35:42 Sidiq [facility] HB ECG ROUTINE & RHYTHM STRIP 2023-07-03 14:35:42 Sidiq [facility] HB ECG ROUTINE & RHYTHM STRIP 2023-07-03 14:35:42 Samuel [facility] HB ECG ROUTINE & RHYTHM STRIP 2023-07-03 12:51:42 Palomares, [facility] HB ECG ROUTINE & RHYTHM STRIP 2023-07-03 12:51:42 Palomares, [facility] HB ECG ROUTINE & RHYTHM STRIP 2023-07-03 12:51:42 Palomares, [facility] HB ECG ROUTINE & RHYTHM STRIP 2023-07-03 12:51:42 Palomares, [facility] TACROLIMUS, LEVEL 2023-07-03 12:32:00 Palomares, Padmaja [facility] TACROLIMUS, LEVEL 2023-07-03 12:32:00 Palomares, Padmaja [facility] TACROLIMUS, LEVEL 2023-07-03 12:32:00 Palomares, Padmaja [facility] TACROLIMUS, LEVEL 2023-07-03 12:32:00 PalomaresPadmaja [facility] LACTIC ACID WHOLE BLOOD 2023-07-03 09:37:00 Palomares, Quang [facility] LACTIC ACID WHOLE BLOOD 2023-07-03 09:37:00 Palomares, Quang [facility] LACTIC ACID WHOLE BLOOD 2023-07-03 09:37:00 Palomares, Quang [facility] LACTIC ACID WHOLE BLOOD 2023-07-03 09:37:00 Palomares, Quang [facility] ACTIVATED PARTIAL THRMPLAS ROSEMARY 2023-07-03 09:19:00 Nicole Rocha [facility] ACTIVATED PARTIAL THRMPLAS ROSEMARY 2023-07-03 09:19:00 Nicole Rocha [facility] ACTIVATED PARTIAL THRMPLAS ROSEMARY 2023-07-03 09:19:00 Nicole Rocha [facility] ACTIVATED PARTIAL THRMPLAS ORSEMARY 2023-07-03 09:19:00 Nicole Rocha [facility] PHOSPHORUS 2023-07-03 06:42:00 Padmaja Palomares [facility] MAGNESIUM 2023-07-03 06:42:00 Padmaja Palomares [facility] TROPONIN I 2023-07-03 06:42:00 Palomares, [facility] HEPATIC FUNCTION PANEL ([id number]) (ALB,T.PRO,BILI T,BU/BC,ALT,AST,ALK PHOS) 2023-07-03 06:42:00 Palomares, [facility] BASIC METABOLIC PANEL (NA, K, CL, CO2, GLUCOSE, BUN, CREATININE, CA) 2023-07-03 06:42:00 Palomares, [facility] LIPID PANEL ([id number])(TOTAL CHOLESTEROL, TRIGLYCERIDES, HDL) 2023-07-03 06:42:00 Palomares, [facility] IRON PANEL 2023-07-03 06:42:00 Palomares, [facility] CBC WITH DIFF 2023-07-03 06:42:00 Palomares, [facility] EXTRA TUBE SST 2023-07-03 06:42:00 [facility]-07-03 06:42:00 Palomares [facility] MAGNESIUM 2023-07-03 06:42:00 Palomares, [facility] TROPONIN I 2023-07-03 06:42:00 Palomares, [facility] HEPATIC FUNCTION PANEL ([id number]) (ALB,T.PRO,BILI T,BU/BC,ALT,AST,ALK PHOS) 2023-07-03 06:42:00 Palomares, [facility] BASIC METABOLIC PANEL (NA, K, CL, CO2, GLUCOSE, BUN, CREATININE, CA) 2023-07-03 06:42:00 Palomares, [facility] LIPID PANEL ([id number])(TOTAL CHOLESTEROL, TRIGLYCERIDES, HDL) 2023-07-03 06:42:00 Palomares, [facility] IRON PANEL 2023-07-03 06:42:00 Palomares, [facility] CBC WITH DIFF 2023-07-03 06:42:00 Palomares, [facility] EXTRA TUBE SST 2023-07-03 06:42:00 [facility] 2023-07-03 06:42:00 Palomares, [facility] MAGNESIUM 2023-07-03 06:42:00 Palomares, [facility] TROPONIN I 2023-07-03 06:42:00 Palomares, [facility] HEPATIC FUNCTION PANEL ([id number]) (ALB,T.PRO,BILI T,BU/BC,ALT,AST,ALK PHOS) 2023-07-03 06:42:00 Palomares, [facility] BASIC METABOLIC PANEL (NA, K, CL, CO2, GLUCOSE, BUN, CREATININE, CA) 2023-07-03 06:42:00 Palomares, [facility] LIPID PANEL ([id number])(TOTAL CHOLESTEROL, TRIGLYCERIDES, HDL) 2023-07-03 06:42:00 Palomares, [facility] IRON PANEL 2023-07-03 06:42:00 Palomares, [facility] CBC WITH DIFF 2023-07-03 06:42:00 Palomares, [facility] EXTRA TUBE SST 2023-07-03 06:42:00 Mukesh [facility] PHOSPHORUS 2023-07-03 06:42:00 Palomares, [facility] MAGNESIUM 2023-07-03 06:42:00 Palomares, [facility] TROPONIN I 2023-07-03 06:42:00 Palomares, [facility] HEPATIC FUNCTION PANEL ([id number]) (ALB,T.PRO,BILI T,BU/BC,ALT,AST,ALK PHOS) 2023-07-03 06:42:00 Palomares, [facility] BASIC METABOLIC PANEL (NA, K, CL, CO2, GLUCOSE, BUN, CREATININE, CA) 2023-07-03 06:42:00 Palomares, [facility] LIPID PANEL ([id number])(TOTAL CHOLESTEROL, TRIGLYCERIDES, HDL) 2023-07-03 06:42:00 Palomares, [facility] IRON PANEL 2023-07-03 06:42:00 Palomares, [facility] CBC WITH DIFF 2023-07-03 06:42:00 Palomares, [facility] EXTRA TUBE SST 2023-07-03 06:42:00 Venita Mayorga [facility] HB ECG ROUTINE & RHYTHM STRIP 2023-07-03 06:20:19 Jelani [facility] HB ECG ROUTINE & RHYTHM STRIP 2023-07-03 06:20:19 Jelani [facility] HB ECG ROUTINE & RHYTHM STRIP 2023-07-03 06:20:19 Jelani [facility] HB ECG ROUTINE & RHYTHM STRIP 2023-07-03 06:20:19 Jelani [facility] PROTHROMBIN TIME / INR 2023-07-03 02:49:00 Edna Rocha [facility] ACTIVATED PARTIAL THRMPLAS ROSEMARY 2023-07-03 02:49:00 Nicole Rocha [facility] PROTHROMBIN TIME / INR 2023-07-03 02:49:00 Edna Rocha [facility] ACTIVATED PARTIAL THRMPLAS ROSEMARY 2023-07-03 02:49:00 Nicole Rocha [facility] PROTHROMBIN TIME / INR 2023-07-03 02:49:00 Edna Rocha [facility] ACTIVATED PARTIAL THRMPLAS ROSEMARY 2023-07-03 02:49:00 Nicole Rocha [facility] PROTHROMBIN TIME / INR 2023-07-03 02:49:00 Edna Rocha [facility] ACTIVATED PARTIAL THRMPLAS ROSEMARY 2023-07-03 02:49:00 Nciole Rocha [facility] XR CHEST 1 2023-07-03 02:09:38 Nicole Rocha [facility] XR CHEST 1 2023-07-03 02:09:38 Nicole Rocha [facility] XR CHEST 1 2023-07-03 02:09:38 Nicole Rocha [facility] XR CHEST 1 2023-07-03 02:09:38 Nicole Rocha [facility] TROPONIN I 2023-07-03 01:55:00 Nicole Rocha [facility] THYROID STIMULATING HORMONE 2023-07-03 01:55:00 Jelani [facility] COMP. METABOLIC PANEL ([id number]) 2023-07-03 01:55:00 Nicole Rocha [facility] CBC WITH DIFF 2023-07-03 01:55:00 Nicole Rocha [facility] GLYCOSYLATED HEMOGLOBIN (A1C) 2023-07-03 01:55:00 Palomares, [facility] N-TERMINAL PRO-BNP 2023-07-03 01:55:00 Nicole Rocha [facility] TROPONIN I 2023-07-03 01:55:00 Nicole Rocha [facility] THYROID STIMULATING HORMONE 2023-07-03 01:55:00 Palomares, [facility] COMP. METABOLIC PANEL ([id number]) 2023-07-03 01:55:00 Nicole Rocha [facility] CBC WITH DIFF 2023-07-03 01:55:00 Nicole Rocha [facility] GLYCOSYLATED HEMOGLOBIN (A1C) 2023-07-03 01:55:00 Palomares [facility] N-TERMINAL PRO-BNP 2023-07-03 01:55:00 Nicole Rocha [facility] TROPONIN I 2023-07-03 01:55:00 Nicole Rocha [facility] THYROID STIMULATING HORMONE 2023-07-03 01:55:00 Palomares, [facility] COMP. METABOLIC PANEL ([id number]) 2023-07-03 01:55:00 Nicole Rocha [facility] CBC WITH DIFF 2023-07-03 01:55:00 Nicole Rocha [facility] GLYCOSYLATED HEMOGLOBIN (A1C) 2023-07-03 01:55:00 Palomares, [facility] N-TERMINAL PRO-BNP 2023-07-03 01:55:00 Nicole Rocha [facility] TROPONIN I 2023-07-03 01:55:00 Nicole Rocha [facility] THYROID STIMULATING HORMONE 2023-07-03 01:55:00 Palomares, [facility] COMP. METABOLIC PANEL ([id number]) 2023-07-03 01:55:00 Nicole Rocha [facility] CBC WITH DIFF 2023-07-03 01:55:00 Nicole Rocha [facility] GLYCOSYLATED HEMOGLOBIN (A1C) 2023-07-03 01:55:00 Padmaja Palomares [facility] N-TERMINAL PRO-BNP 2023-07-03 01:55:00 Nicole Rocha [facility] HB ECG ROUTINE & RHYTHM STRIP 2023-07-03 01:50:33 Nicole Rocha [facility] HB ECG ROUTINE & RHYTHM STRIP 2023-07-03 01:50:33 Nicole Rocha [facility] HB ECG ROUTINE & RHYTHM STRIP 2023-07-03 01:50:33 Nicole Rocha [facility] HB ECG ROUTINE & RHYTHM STRIP 2023-07-03 01:50:33 Nicole Rocha [facility] CONSENT/REFUSAL FOR DIAGNOSIS AND TREATMENT 2023-07-03 01:45:54 Doctor Unassigned, [place] [facility] CONSENT/REFUSAL FOR DIAGNOSIS AND TREATMENT 2023-07-03 01:45:54 Doctor Unassigned, [place] [facility] CONSENT/REFUSAL FOR DIAGNOSIS AND TREATMENT 2023-07-03 01:45:54 Doctor Unassigned, [place] [facility] CONSENT/REFUSAL FOR DIAGNOSIS AND TREATMENT 2023-07-03 01:45:54 Doctor Unassigned, [place] [facility] CRITICAL CARE 2023-07-03 01:45:00 Nicole Rocha [facility] CRITICAL CARE 2023-07-03 01:45:00 Nicole Rocha [facility] CRITICAL CARE 2023-07-03 01:45:00 Nicole Rocha [facility] CRITICAL CARE 2023-07-03 01:45:00 Nicole Rocha [facility] ADMISSION 2023-07-02 06:01:00 Doctor Un assigned, [place] [facility] ADMISSION 2023-07-02 06:01:00 Doctor Un assigned, [place] [facility] ADMISSION 2023-07-02 06:01:00 Doctor Un assigned, [place] [facility] ADMISSION 2023-07-02 06:01:00 Doctor Un assigned, [place] [facility] OCT, RETINA - OU - BOTH EYES 2023-06-20 17:41:01 Diandra Tillman [facility] PANRETINAL PHOTOCOAGULATION - OD - RIGHT EYE 2023-06-20 16:40:57 [facility] AND [facility]SENT, MEDICAL AND SURGICAL PROCEDURES 2023-06-20 06:01:00 Doctor Unassigned, [place] [facility] INSURANCE CORRESPONDENCE 2023-06-12 06:01:00 Doc tor Unassigned, [place] [facility] OCT, RETINA - OU - BOTH EYES 2023-05-26 19:26:59 [facility] FLUORESCEIN ANGIOGRAPHY - OU - BOTH EYES 2023-05-26 19:26:50 [facility] PHOS[facility]US 2023-05-23 17:47:00 Shanae [facility] MAGNESIUM 2023-05-23 17:47:00 Shanae [facility] BASIC METABOLIC PANEL (NA, K, CL, CO2, GLUCOSE, BUN, CREATININE, CA) 2023-05-23 17:47:00 Shanae [facility] CBC WITH DIFF 2023-05-23 17:47:00 Shanae [facility] URINALYSIS 2023-05-23 17:47:00 Shanae [facility] PROTEIN CREAT RATIO URINE RANDOM 2023-05-23 17:47:00 Shanae [facility] ASSIGNMENT OF BENEFITS 2023-05-23 15:08:56 Docto r Unassigned, [place] [facility] CONSENT/REFUSAL FOR DIAGNOSIS AND TREATMENT 2023-05-23 15:08:38 Doctor Unassigned, [place] [facility] INTRAVITREAL INJECTION, PHARMACOLOGIC AGENT - OD - RIGHT EYE 2023-05-02 16:46:19 Layne [facility] OCT, RETINA - OU - BOTH EYES 2023-05-02 16:42:43 Layne [facility] DISCLOSURE AND CONSENT, MEDICAL AND SURGICAL PROCEDURES 2023-05-02 06:01:00 Doctor Unassigned, [place] [facility] INTRAVITREAL INJECTION, PHARMACOLOGIC AGENT - OD - RIGHT EYE 2023-03-28 17:27:30 Mopuru, Diandra [facility] OCT, RETINA - OU - BOTH EYES 2023-03-28 17:24:22 [facility] DISCLOSURE AND CONSENT, MEDICAL AND SURGICAL PROCEDURES 2023-03-28 06:01:00 Doctor Unassigned, [place] [facility] INTRAVITREAL INJECTION, PHARMACOLOGIC AGENT - OD - RIGHT EYE 2023-02-24 16:26:54 Diandra Tillman [facility] OCT, RETINA - OU - BOTH EYES 2023-02-24 16:21:02 Diandra Tillman [facility] DISCLOSURE AND CONSENT, MEDICAL AND SURGICAL PROCEDURES 2023-02-24 05:01:00 Doctor Unassigned, [place] [facility] POCT MOLECULAR STREP 2023-02-19 15:09:00 Ferdinand Garcia [facility] FUNDUS PHOTOS - OU - BOTH EYES 2023-01-30 18:51:09 Layne [facility] OCT, RETINA - OU - BOTH EYES 2023-01-30 18:49:03 Diandra Tillman [facility] EXTERNAL PROVIDER RECORDS 2023-01-09 05:01:00 Do ctor Unassigned, [place] [facility] OCT, RETINA - OU - BOTH EYES 2023-01-06 16:42:22 Van Brown [facility] NOTICE OF PRIVACY PRACTICES 2022-10-28 19:20:29 Doctor Unassigned, [place] [facility] CONSENT/REFUSAL FOR DIAGNOSIS AND TREATMENT 2022-10-28 19:20:09 Doctor Unassigned, [place] [facility] ASSIGNMENT OF BENEFITS 2022-10-28 19:19:51 Docto r Unassigned, [place] [facility] PNEUMOCOCCAL 20 CONJUGATE (PREVNAR 20) VACCINE 2022-10-21 15:30:33 Abner Rivera [facility] EXTERNAL PROVIDER RECORDS 2022-10-18 05:01:00 Do ctor Unassigned, [place] [facility] PHOSPHORUS 2022-09-24 18:43:00 [facility] 2022-09-24 18:43:00 Shanae [facility] BASIC METABOLIC PANEL (NA, K, CL, CO2, GLUCOSE, BUN, CREATININE, CA) 2022-09-24 18:43:00 Shanae [facility] TACROLIMUS, LEVEL 2022-09-24 18:43:00 Shanae [facility] CBC WITH DIFF 2022-09-24 18:43:00 Shanae [facility] BK VIRUS QUANT 2022-09-24 18:43:00 Naomie Mcclendon [facility] PATIENT FINANCIAL POLICY 2022-07-17 19:23:55 Doctor Unassigned, [place] [facility] EXTERNAL DD-CFDNA 2022-07-17 05:00:00 Pro Morfin [facility] PHOSPHORUS 2022-07-12 18:27:00 Shanae [facility] MAGNESIUM 2022-07-12 18:27:00 Shanae [facility] BASIC METABOLIC PANEL (NA, K, CL, CO2, GLUCOSE, BUN, CREATININE, CA) 2022-07-12 18:27:00 Shanae [facility] TACROLIMUS, LEVEL 2022-07-12 18:27:00 Shanae [facility] CBC WITH DIFF 2022-07-12 18:27:00 Shanae [facility] URINALYSIS 2022-07-12 18:27:00 Shanae [facility] PROTEIN CREAT RATIO URINE RANDOM 2022-07-12 18:27:00 Shanae, [facility] PHOSPHORUS 2022-05-30 15:16:00 Shanae, [facility] MAGNESIUM 2022-05-30 15:16:00 Shanae [facility] BASIC METABOLIC PANEL (NA, K, CL, CO2, GLUCOSE, BUN, CREATININE, CA) 2022-05-30 15:16:00 Shanae, [facility] CBC WITH DIFF 2022-05-30 [facility]22-05-30 15:16:00 [facility] ASSIGNMENT OF BENEFITS 2022-05-07 15:21:38 Docpierre r Unassigned, [place] [facility] CT ABDOMEN PELVIS W WO CONTRAST 2022-04-15 15:44:59 Naomie Doty [facility] CONSENT/REFUSAL FOR DIAGNOSIS AND TREATMENT 2022-04-15 14:49:13 Doctor Unassigned, [place] [facility] ASSIGNMENT OF BENEFITS 2022-04-15 14:49:01 Docto r Unassigned, [place] [facility] URINALYSIS 2022-04-10 [facility] 2022-04-10 16:14:00 Naomie Mcclendon [facility] PROTEIN CREAT RATIO URINE RANDOM 2022-04-10 16:14:00 Shanae [facility] PHOSPHORUS 2022-04-10 16:01:[facility] 2022-04-10 16:01:00 [facility] BASIC METABOLIC PANEL (NA, K, CL, CO2, GLUCOSE, BUN, CREATININE, CA) 2022-04-10 16:01:00 [facility] TACROLIMUS, LEVEL 2022-04-10 16:01[facility]FF 2022-04-10 16:01:00 [facility] BK VIRUS QUANT 2022-04-10 16:01:00 Naomie Mcclendon [facility] EXTERNAL DD-CFDNA 2022-04-10 06:00:00 Pro Morfin [facility] FLU VACC(),65+YR,0.5 ML,IM,ADJUVANTED,QUAD(FLUA D) 2022-04-01 17:57:26 Abner Rivera [facility] POCT GRP A STREP (MOLECULAR) 2022-03-12 22:00:00 Junior Garcia [facility] DERMATOPATHOLOGY TISSUE EXAM 2022-02-26 00:00:00 Kurtis Kirk [facility] POCT HEMOGLOBIN A1C TEST 2022-02-04 17:03:00 Junior Garcia [facility] SARS-COV-2 COVID-19 VACCINE 18 YRS+, BIVALENT 0.5ML, IM (MODERNA BOOSTER) 2022-02-04 16:37:53 Doctor Unassigned, [place] [facility] URINALYSIS 2022-01-24 19:12:00 Behzad Jolly [facility] CBC WITH DIFF 2022-01-24 19:01:00 Behzad Jolly [facility] PHOSPHORUS 2022-01-24 17:20:00 [facility] 2022-01-24 17:20:00 Behzad Jolly [facility] COMP. METABOLIC PANEL ([id number]) 2022-01-24 17:20:00 Abner Rivera [facility] HEPATITIS C VIRUS (HCV) BY QUANTITATIVE NAAT 2022-01-24 17:20:00 Abner Rivera [facility] TACROLIMUS, LEVEL 2022-01-24 17:19:00 Behzad Jolly [facility] PROTEIN CREAT RATIO URINE RANDOM 2022-01-24 17:15:00 Shanae [facility] TOTAL PROTEIN, URINE RANDOM 2022-01-24 17:15:00 Shanae [facility] MEDICATION CORRESPONDENCE 2022-01-14 05:01:00 Do ctor Unassigned, [place] [facility] Encounters Start Date/Time End Date/Time Encounter Type Admission Type Attending Clinicians Care Facility Care Department Encounter ID Source 2021-02-26 05:42:45 Outpatient JASMYNE GOFF [facility] [id number] [facility] 2024-10-21 13:00:00 2024-10-21 13:00:00 Outpatient Matt [facility] [id number] [facility] 2024-10-15 08:00:00 2024-10-15 08:00:00 Outpatient R [facility] [id number] [facility] 2024-05-24 15:40:00 2024-05-24 15:40:00 Outpatient R OBI-KHALIDA , STEPHENIE OBI-KHALIDA , STEPHENIE [facility] [id number] [facility] 2024-05-18 09:20:00 2024-05-18 09:20:00 Outpatient R TOMEKA REED [facility] [id number] [facility] 2024-05-12 00:00:00 2024-05-12 00:00:00 Outpatient R ABNER RIVERA [facility] [id number] [facility] 2024-05-06 00:00:00 2024-05-06 00:00:00 Outpatient R ABNER RIVERA [facility] [id number] [facility] 2024-04-29 08:40:00 2024-04-29 09:20:00 Office Visit Abner Rivera [facility] 1.2.840.114 350.1.13.10 4.2.7.2.686 [id number] [facility] 2024-04-29 08:40:00 2024-04-29 08:40:00 Outpatient R ABENR RIVERA [facility] [id number] [facility] 2024-04-26 00:00:00 2024-04-26 14:43:48 Specialty Pharmacy Shyann Fitch [facility] [place] .2.840.114 350.1.13.10 4.2.7.2.686 [id number] [facility] 2024-04-23 08:30:00 2024-04-23 08:30:00 Windsmith Visit 2, Adc Lab Abner Rivera 2, Adc Lab [facility] 1.114 350.1.13.10 4.2.7.2.686 [id number] [facility] 2024-04-23 08:30:00 2024-04-23 08:23:03 Outpatient ABNER CARDONA [facility] [id number] [facility] 2024-04-19 00:00:00 2024-04-19 15:26:33 Refill Abner Rivera [facility] 1.114 350.1.13.10 4.2.7.2.686 [id number] [facility] 2024-04-12 14:00:00 2024-04-12 14:09:55 Outpatient BEHZAD MATOS [facility] [id number] [facility] 2024-04-12 14:00:00 2024-04-12 14:09:55 Office Visit Naomie Solis do [facility] 1.114 350.1.13.10 4.2.7.2.686 [id number] [facility] 2024-04-12 12:45:00 2024-04-12 13:00:00 Windsmith Visit [facility] Naomie Solis do [facility] 1.114 350.1.13.10 4.2.7.2.686 [id number] [facility] 2024-04-12 00:00:00 2024-04-12 10:15:06 Specialty Pharmacy Shyann Fitch [facility] [place] 1..114 350.1.13.10 4.2.7.2.686 [id number] [facility] 2024-03-23 00:00:00 2024-03-23 16:05:14 Specialty Pharmacy Sandy Perry Tamara L [facility] [place] 1.2.840.114 350.1.13.10 4.2.7.2.686 [id number] [facility] 2024-03-23 00:00:00 2024-03-23 14:40:[address] [facility] 1.2.840.114 350.1.13.10 4.2.7.2.686 [id number] [facility] 2024-03-03 00:00:00 2024-03-23 09:23:19 [facility] 1.2.840.114 350.1.13.10 4.2.7.2.686 [id number] [facility] 2024-03-19 00:00:00 2024-03-19 16:37:24 Abner Reynolds [facility] 1.2.840.114 350.1.13.10 4.2.7.2.686 [id number] [facility] 2024-02-13 00:00:00 2024-02-15 14:34:50 [facility] 1.2.840.114 350.1.13.10 4.2.7.2.686 [id number] [facility] 2024-02-13 00:00:00 2024-02-13 10:01:52 Specialty Pharmacy Shyann Fitch Shatara E [facility] [place] 1.2.840.114 350.1.13.10 4.2.7.2.686 [id number] [facility] 2024-02-11 16:30:00 2024-02-11 16:30:00 Outpatient R KAIN JULIEN CORDELLLIZDANILO DOAllison [facility] [id number] [facility] 2024-01-23 00:00:00 2024-01-23 09:16:42 [facility]ill [facility] 1.2.840.114 350.1.13.10 4.2.7.2.686 [id number] [facility] 2024-01-22 00:00:00 2024-01-22 13:24:58 Refill Abner Rivera [facility] 1.2.840.114 350.1.13.10 4.2.7.2.686 [id number] [facility] 2024-01-21 08:40:00 2024-01-21 08:59:05 Outpatient R HERMILAOLIMPAIABNER [facility] [id number] [facility] 2024-01-21 08:40:00 2024-01-21 08:59:05 Office Visit Abner Rivera [facility] 1.2.840.114 350.1.13.10 4.2.7.2.686 [id number] [facility] 2024-01-21 08:00:00 2024-01-21 08:57:10 Office Visit Abner Rivera [facility] 1.2.840.114 350.1.13.10 4.2.7.2.686 [id number] [facility] 2024-01-13 00:00:00 2024-01-13 11:11:55 Pre Visit Outreach Lisette Watts Lisette Nelson [facility] 1.2.840.114 350.1.13.10 4.2.7.2.686 [id number] [facility] 2024-01-13 10:00:00 2024-01-13 10:03:55 Outpatient R TOMEKA REED [facility] [id number] [facility] 2024-01-13 10:00:00 2024-01-13 10:03:55 Office [facility]omeka [facility] 1.2.840.114 350.1.13.10 4.2.7.2.686 [id number] [facility] 2024-01-09 00:00:00 2024-01-09 11:21:46 Abner Reynolds [facility] 1.2840.114 350.1.13.10 4.2.7.2.686 [id number] [facility] 2024-01-09 00:00:00 2024-01-09 10:06:04 Abstract Behzad Jolly [facility] 1.2840.114 350.1.13.10 4.2.7.2.686 [id number] [facility] 2024-01-05 00:00:00 2024-01-05 16:21:06 Specialty Pharmacy Marisela Van Sudha [facility] [place] 1.2840.114 350.1.13.10 4.2.7.2.686 [id number] [facility] 2024-01-05 16:00:00 2024-01-05 16:15:00 Wind[facility] Visit [facility] Behzad Jolly [facility] 1.2840.114 350.1.13.10 4.2.7.2.686 [id number] [facility] 2024-01-05 14:30:00 2024-01-05 15:50:59 Outpatient R BEHZAD JOLLY [facility] [id number] Toñito sesay [facility] 2024-01-05 14:30:00 2024-01-05 15:50:59 Office Visit Behzad Jolly [facility] 1.2.840.114 350.1.13.10 4.2.7.2.686 [id number] [facility] 2024-01-02 00:00:00 2024-01-02 12:11:51 Pre Visit Outreach Mac Lisette Nelson Watts Lisette Nelson [facility] 1.2.840.114 350.1.13.10 4.2.7.2.686 [id number] [facility] 2023-12-05 00:00:00 2023-12-05 09:42:34 [facility]ill [facility] 1.2.840.114 350.1.13.10 4.2.7.2.686 [id number] [facility] 2023-12-03 00:00:00 2023-12-03 18:16:49 Refill [facility] 1.2.840.114 350.1.13.10 4.2.7.2.686 [id number] [facility] 2023-11-27 12:15:00 2023-11-27 12:30:00 Wind[place] Visit [facility] Katarzyna Morfin [facility] 1.2.840.114 350.1.13.10 4.2.7.2.686 [id number] [facility] 2023-11-27 12:15:00 2023-11-27 12:15:00 Outpatient R KATARZYNA MORFIN [facility] [id number] [facility] 2023-11-27 00:00:00 2023-11-27 12:09:01 Letter (Out) Doctor Unassigned, [place] [facility] 1..114 350.1.13.10 4.2.7.2.686 [id number] [facility] 2023-11-21 13:00:00 2023-11-21 13:00:00 [facility] [id number] [facility] 2023-11-20 00:00:00 2023-11-21 08:54:12 Telephone Soha [facility] 1.84.114 350.1.13.10 4.2.7.2.686 [id number] [facility] 2023-11-11 00:00:00 2023-11-17 16:20:39 Telephone Naomie Solis do [facility] 1..114 350.1.13.10 4.2.7.2.686 [id number] [facility] 2023-11-14 00:00:00 2023-11-14 14:56:02 Letter (Out) Nicolle Suresh [facility] 1.84.114 350.1.13.10 4.2.7.2.686 [id number] [facility] 2023-11-12 15:20:00 2023-11-12 15:49:17 [facility] [id number] [facility] 2023-11-12 15:20:00 2023-11-12 15:49:17 Office Visit Soha [facility] 1.84.114 350.1.13.10 4.2.7.2.686 [id number] [facility] 2023-11-06 09:40:00 2023-11-06 09:40:00 [facility] [id number] [facility] 2023-10-28 00:00:00 2023-10-28 16:26:36 Telephone Abner Rivera [facility] 1.2.840.114 350.1.13.10 4.2.7.2.686 [id number] [facility] 2023-10-24 00:00:00 2023-10-27 15:59:46 [facility] 1.2.840.114 350.1.13.10 4.2.7.2.686 [id number] [facility] 2023-10-23 10:45:00 2023-10-23 11:00:00 [place] Visit 2, [facility] 1.2.840.114 350.1.13.10 4.2.7.2.686 [id number] [facility] 2023-10-23 10:45:00 2023-10-23 10:52:43 [facility] [id number] 2023-10-16 15:20:00 2023-10-16 15:29:53 Outpatient R ANGELES REEDTRE [facility] [id number] [facility] 2023-10-16 15:20:00 2023-10-16 15:29:53 [facility] 1.2.840.114 350.1.13.10 4.2.7.2.686 [id number] [facility] 2023-10-16 00:00:00 2023-10-16 15:23:52 Telephone Behzad Jolly [facility] M[facility]ISPEC [facility] 1.2840.114 350.1.13.10 4.2.7.2.686 [id number] [facility] 2023-10-14 00:00:00 2023-10-14 15:49:27 Telephone Hany Rose C [facility] 1.2840.114 350.1.13.10 4.2.7.2.686 [id number] [id number] [facility] 2023-10-07 10:30:00 2023-10-07 10:37:23 Windsmith Visit 2, [facility] 1.2840.114 350.1.13.10 4.2.7.2.686 [id number] [facility] 2023-10-07 10:00:00 2023-10-07 10:12:48 [facility] [id number] [facility] 2023-10-07 10:00:00 2023-10-07 10:12:48 Office Visit Phil Sureshssica [facility] 1.2840.114 350.1.13.10 4.2.7.2.686 [id number] [id number] [facility] 2023-09-29 00:00:00 2023-09-29 15:01:08 Case Management Jack Grady 1.2840.114 350.1.13.10 4.2.7.2.686 [id number] [facility] 2023-09-21 00:00:00 2023-09-23 10:36:08 Ana Jolly [facility] M[facility]ISPEC [facility] 1.2840.114 350.1.13.10 4.2.7.2.686 [id number] [facility] 2023-09-17 15:30:00 2023-09-17 15:30:00 Outpatient VENITA VIVEROS [facility] [id number] [facility] 2023-09-16 00:00:00 2023-09-17 09:02:54 Telephone Rehan [facility] ([facility]) 1.2.840.114 350.1.13.10 4.2.7.2.686 [id number] [facility] 2023-09-09 00:00:00 2023-09-13 10:23:56 Telephone Abner Rivera [facility] 1.2.840.114 350.1.13.10 4.2.7.2.686 [id number] [id number] [facility] 2023-09-12 14:30:00 2023-09-12 14:30:00 Outpatient VENITA VIVEROS [facility] [id number] [facility] 2023-09-08 00:00:00 2023-09-10 11:02:[address] [facility] MEDICAL OFFICE BUILDING 1.2840.114 350.1.13.10 4.2.7.2.686 [id number] [facility] 2023-09-08 00:00:00 2023-09-09 14:11:04 Telephone Jt Doyle [facility] 1.2.840.114 350.1.13.10 4.2.7.2.686 [id number] [facility] 2023-09-01 00:00:00 2023-09-02 09:09:12 Telephone Rehan [facility] ([facility]) 1.2.840.114 350.1.13.10 4.2.7.2.686 [id number] [facility] 2023-08-28 00:00:00 2023-08-28 00:00:00 [facility] 1..114 350.1.13.10 4.2.7.2.686 [id number] [id number] [facility] 2023-08-28 00:00:00 2023-08-28 00:00:00 Refill Behzad Jolly [facility] MULTISPEC [facility] 1.114 350.1.13.10 4.2.7.2.686 [id number] [facility] 2023-08-28 00:00:00 2023-08-28 00:00:00 Refill HermilajinAbner martínez [facility] BUILDING 1.114 350.1.13.10 4.2.7.2.686 [id number] [id number] [facility] 2023-08-21 10:30:00 2023-08-21 11:24:32 Outpatient R ASHWIN RICHARDS [facility] [id number] [facility] 2023-08-21 10:30:00 2023-08-21 11:24:32 Office Visit Ashwin Richards [facility] 1.114 350.1.13.10 4.2.7.2.686 [id number] [facility] 2023-08-07 13:45:00 2023-08-07 13:45:00 Outpatient R DIANDRA TILLMAN RENUKA [facility] [id number] [facility] 2023-07-31 14:15:00 2023-07-31 14:30:00 Office Visit Jt Doyle [facility] 1.114 350.1.13.10 4.2.7.2.686 [id number] [facility] 2023-07-31 14:15:00 2023-07-31 14:15:00 Outpatient JT PONCE [facility] [id number] [facility] 2023-07-28 00:00:00 2023-07-28 00:00:00 Telephone Abner Rivera [facility] 1.840.114 350.1.13.10 4.2.7.2.686 [id number] [id number] [facility] 2023-07-23 15:20:00 2023-07-23 15:20:00 Outpatient R OBI-KHALIDA STEPHENIE OBI-KHALIDA STEPHENIE [facility] [id number] [facility] 2023-07-21 08:45:00 2023-07-21 08:45:00 Outpatient R MOPTABITHAU DIANDRA MOPTABITHAU DIANDRA [facility] [id number] [facility] 2023-07-18 00:00:00 2023-07-18 00:00:00 Transition of Care Cassius Deras VICTORIA ..840.114 350.1.13.10 4.2.7.2.686 [id number] [facility] 2023-07-02 19:45:00 2023-07-17 11:15:00 Inpatient JT REYEZ [facility] [id number] [facility] 2023-07-02 19:45:00 2023-07-17 11:15:00 Hospital Encounter Nicole Rocha, Jackson Mayorga, Jt [place] [facility] ..840.114 350.1.13.10 4.2.7.2.686 [id number] [facility] 2023-07-11 11:40:00 2023-07-11 11:40:00 Outpatient R ABNER RIVERA [facility] [id number] [facility] 2023-07-08 19:30:00 2023-07-08 22:20:00 Surgery [facility] 1.2.840.114 350.1.13.10 4.2.7.2.686 [id number] [facility] 2023-07-08 06:45:00 2023-07-08 13:22:00 Surgery [facility] 1.2.840.114 350.1.13.10 4.2.7.2.686 [id number] [facility] 2023-07-04 15:12:00 2023-07-04 16:12:00 Surgery Venita Mayorga [facility] 1.2.840.114 350.1.13.10 4.2.7.2.686 [id number] [facility] 2023-07-02 00:00:00 2023-07-02 00:00:00 Telephone Tomeka Reed [facility] BUILDING 1.2.840.114 350.1.13.10 4.2.7.2.686 [id number] [facility] 2023-06-24 00:00:00 2023-06-24 00:00:00 Telephone [facility] 1.2.840.114 350.1.13.10 4.2.7.2.686 [id number] [id number] [facility] 2023-06-20 10:00:00 2023-06-20 10:45:13 Outpatient R DIANDRA TILLMAN RENUKA [facility] [id number] [facility] 2023-06-20 10:00:00 2023-06-20 10:45:13 Office Visit iDandra Tillman [facility] 1.2.840.114 350.1.13.10 4.2.7.2.686 [id number] [facility] 2023-06-20 00:00:00 2023-06-20 00:00:00 Orders Only Doctor Unassigned, [place] [facility] 1.2840.114 350.1.13.10 4.2.7.2.686 [id number] [facility] 2023-06-13 09:30:00 2023-06-13 09:30:00 Outpatient KURTIS MORENO LEAH [facility] [id number] [facility] 2023-06-12 00:00:00 2023-06-12 00:00:00 Telephone Abner Rivera [facility] 1.84.114 350.1.13.10 4.2.7.2.686 [id number] [id number] [facility] 2023-06-12 00:00:00 2023-06-12 00:00:00 Orders Only Doctor Unassigned, [place] [facility] 1.2.114 350.1.13.10 4.2.7.2.686 [id number] [facility] 2023-05-26 11:00:00 2023-05-26 11:15:00 Windsmith Visit Vtc-Lab Naomie Solis do [facility] 1.114 350.1.13.10 4.2.7.2.686 [id number] [facility] 2023-05-26 10:00:00 2023-05-26 10:41:00 Outpatient NAOMIE HAQ DO [facility] [id number] [facility] 2023-05-26 10:00:00 2023-05-26 10:41:00 Office Visit Parminder Rueda do, [facility] [place] 1.0.114 350.1.13.10 4.2.7.2.686 [id number] [facility] 2023-05-23 11:30:00 2023-05-23 11:48:50 Windsmith Visit 2, Adc Lab Diandra Tillman [facility] 1..114 350.1.13.10 4.2.7.2.686 [id number] [facility] 2023-05-23 09:15:00 2023-05-23 10:33:55 Outpatient R DIANDRA TILLMAN RENUKA [facility] [id number] [facility] 2023-05-23 09:15:00 2023-05-23 10:33:55 Office Visit Diandra Tillman [facility] 1..114 350.1.13.10 4.2.7.2.686 [id number] [facility] 2023-05-23 00:00:00 2023-05-23 00:00:00 Orders Only Doctor Unassigned, [place] [facility] 1..114 350.1.13.10 4.2.7.2.686 [id number] [facility] 2023-05-19 08:15:00 2023-05-19 08:15:00 Outpatient R [facility] [id number] [facility] 2023-05-02 10:30:00 2023-05-02 10:48:00 Outpatient R DIANDRA TILLMAN RENUKA [facility] [id number] [facility] 2023-05-02 10:30:00 2023-05-02 10:45:00 [facility] 1..114 350.1.13.10 4.2.7.2.686 [id number] [facility] 2023-05-02 00:00:00 2023-05-02 00:00:00 Orders Only Doctor Unassigned, [place] [facility] 1..114 350.1.13.10 4.2.7.2.686 [id number] [facility] 2023-04-24 00:00:00 2023-04-24 00:00:00 Telephone Abner [facility] 1..114 350.1.13.10 4.2.7.2.686 [id number] [facility] 2023-04-22 15:00:00 2023-04-22 15:00:00 Outpatient R ABNER RIVERA [facility] [id number] [facility] 2023-03-28 10:15:00 2023-03-28 11:29:01 Outpatient R DIANDRA TILLMAN RENUKA [facility] [id number] [facility] 2023-03-28 10:15:00 2023-03-28 10:30:00 Imm/Inj [facility] 1..114 350.1.13.10 4.2.7.2.686 [id number] [facility] 2023-03-28 00:00:00 2023-03-28 00:00:00 Orders Only Doctor Unassigned, [place] [facility] 1..114 350.1.13.10 4.2.7.2.686 [id number] [facility] 2023-03-17 00:00:00 2023-03-17 00:00:00 Telephone Behzad Jolly [facility] MULTISPEC [facility]TY [facility] 1..114 350.1.13.10 4.2.7.2.686 [id number] [facility] 2023-03-17 00:00:00 2023-03-17 00:00:00 Refcari Shannan Junior [facility] BU[facility] 1..114 350.1.13.10 4.2.7.2.686 [id number] [id number] [facility] 2023-03-13 09:45:00 2023-03-13 10:00:00 Windsmith Visit 2, Adc Lab Padmaja Emerson [facility] NAL BUILDING 1..114 350.1.13.10 4.2.7.2.686 [id number] [facility] 2023-03-13 09:45:00 2023-03-13 09:55:38 Outpatient R PADMAJA EMERSON [facility] [id number] [facility] 2023-03-12 00:00:00 2023-03-12 00:00:00 Telephone Penny Spencer [facility] MULTISPEC [facility]TY [facility] 1.114 350.1.13.10 4.2.7.2.686 [id number] [facility] 2023-03-10 13:45:00 2023-03-10 13:45:00 Outpatient R VAN BROWN [facility] [id number] [facility] 2023-02-24 10:30:00 2023-02-24 11:29:02 Outpatient R DIANDRA TILLMAN RENUKA [facility] [id number] [facility] 2023-02-24 10:30:00 2023-02-24 10:45:00 Imm/Inj Visit Diandra Tillman [facility] MULTISPEC [facility] 1.114 350.1.13.10 4.2.7.2.686 [id number] [facility] 2023-02-24 00:00:00 2023-02-24 00:00:00 Orders Only Doctor Unassigned, [place] [facility] 1.20.114 350.1.13.10 4.2.7.2.686 [id number] [facility] 2023-02-19 10:00:00 2023-02-19 11:08:18 Outpatient R JUNIOR GARCIA OGECHUKWU [facility] [id number] [facility] 2023-02-19 10:00:00 2023-02-19 11:08:18 Office Visit Junior Garcia [facility] BUILDING 1.284.114 350.1.13.10 4.2.7.2.686 [id number] [facility] 2023-02-19 10:30:00 2023-02-19 10:45:00 Windsmith Visit 2, Adc Lab [facility] 1.284.114 350.1.13.10 4.2.7.2.686 [id number] [facility] 2023-02-19 00:00:00 2023-02-19 00:00:00 Telephone Behzad Jolly [facility] MULTISPEC [facility]TY C[facility] 1.114 350.1.13.10 4.2.7.2.686 [id number] [facility] 2023-01-27 14:30:00 2023-01-27 16:11:42 Outpatient R DIANDRA TILLMAN RENUKA [facility] [id number] [facility] 2023-01-27 14:30:00 2023-01-27 16:11:42 Office Visit Diandra Tillman [facility] MULTISPEC [facility] 1.2.840.114 350.1.13.10 4.2.7.2.686 [id number] [facility] 2023-01-21 00:00:00 2023-01-21 00:00:00 Telephone Junior Garcia [facility] BUILDING 1.2.840.114 350.1.13.10 4.2.7.2.686 [id number] [id number] [facility] 2023-01-14 00:00:00 2023-01-14 00:00:00 Telephone Junior Garcia [facility] BUILDING 1.2.840.114 350.1.13.10 4.2.7.2.686 [id number] 044 [id number] [facility] 2023-01-13 11:00:00 2023-01-13 11:50:19 Outpatient R JUNIOR GARCIA JUNIOR [facility] [id number] [facility] 2023-01-13 11:00:00 2023-01-13 11:50:19 Office Visit Junior Garcia [facility] 1.2.840.114 350.1.13.10 4.2.7.2.686 [id number] [facility] 2023-01-09 00:00:00 2023-01-09 00:00:00 Orders Only Doctor Unassigned, [place] [facility] 1.2.840.114 350.1.13.10 4.2.7.2.686 [id number] [facility] 2023-01-06 10:15:00 2023-01-06 11:47:22 Outpatient R VAN BROWN [facility] [id number] [facility] 2023-01-06 10:15:00 2023-01-06 10:30:00 Office Visit Van [facility] [place] [facility] 1.114 350.1.13.10 4.2.7.2.686 [id number] [facility] 2022-12-23 13:40:00 2022-12-23 13:40:00 Office Visit Kurtis [facility] [place] 1.114 350.1.13.10 4.2.7.2.686 [id number] [facility] 2022-12-23 13:40:00 2022-12-23 13:32:47 Outpatient KURTIS MORENO LEAH [facility] [id number] [facility] 2022-12-17 10:15:00 2022-12-17 10:15:00 Outpatient R ML KEYES [facility] [id number] [facility] 2022-12-17 00:00:00 2022-12-17 00:00:00 Telephone Abner Rivera [facility] 1.114 350.1.13.10 4.2.7.2.686 [id number] [facility] 2022-12-06 10:00:00 2022-12-06 10:00:00 Outpatient R RADHA STAHL SHIWAN [facility] [id number] [facility] 2022-11-25 13:20:00 2022-11-25 13:52:09 Outpatient R NAOMIE SOLIS DO [facility] [id number] [facility] 2022-11-25 13:20:00 2022-11-25 13:52:09 Office Visit Behzad Jolly do, Ann K N [facility] [place] [facility] 1.114 350.1.13.10 4.2.7.2.686 [id number] [facility] 2022-11-22 09:30:00 2022-11-22 10:02:39 Outpatient R NAOMIE SOLIS DO [facility] [id number] [facility] 2022-11-22 09:30:00 2022-11-22 09:45:00 Windsmith Visit 2, Adc Lab Naomie Solis [facility] 1.2.840.114 350.1.13.10 4.2.7.2.686 [id number] [facility] 2022-11-11 00:00:00 2022-11-11 00:00:00 Junior Hilton [facility] 1.2.840.114 350.1.13.10 4.2.7.2.686 [id number] 044 [id number] [facility] 2022-11-05 08:30:00 2022-11-05 08:30:00 Outpatient R ML KEYES [facility] [id number] [facility] 2022-10-28 14:21:31 2022-10-28 23:59:00 Outpatient R ABNER RIVERA [facility] [id number] [facility] 2022-10-28 14:21:31 2022-10-28 23:59:00 Hospital Encounter Abner Rivera [facility] 1..840.114 350.1.13.10 4.2.7.2.686 [id number] [facility] 2022-10-24 09:30:00 2022-10-24 10:18:32 Outpatient R ABNER RIVERA [facility] [id number] [facility] 2022-10-24 09:30:00 2022-10-24 10:18:32 Windsmith Visit Lab, Abner Conroy [facility] 1..840.114 350.1.13.10 4.2.7.2.686 [id number] [facility] 2022-10-24 00:00:00 2022-10-24 00:00:00 Telephone Naomie Solis do [facility] 1.840.114 350.1.13.10 4.2.7.2.686 [id number] [facility] 2022-10-23 09:30:00 2022-10-23 09:30:00 Outpatient R NAOMIE SOLIS DO [facility] [id number] [facility] 2022-10-21 09:00:00 2022-10-21 10:35:29 Outpatient R ABNER RIVERA [facility] [id number] [facility] 2022-10-21 09:00:00 2022-10-21 10:35:29 Office Visit Abner Rivera [facility] 1..840.114 350.1.13.10 4.2.7.2.686 [id number] [facility] 2022-10-18 11:00:00 2022-10-18 11:00:00 Outpatient R ABNER RIVERA [facility] [id number] [facility] 2022-10-18 00:00:00 2022-10-18 00:00:00 Orders Only Doctor Unassigned, [place] [facility] 1.840.114 350.1.13.10 4.2.7.2.686 [id number] [facility] 2022-10-15 14:20:00 2022-10-15 14:25:18 Outpatient R TOMEKA REED [facility] [id number] [facility] 2022-10-15 14:20:00 2022-10-15 14:25:18 Office Visit Tomeka Reed [facility] BUILDING 1.0.114 350.1.13.10 4.2.7.2.686 [id number] [facility] 2022-09-30 09:45:00 2022-09-30 10:00:00 Windsmith Visit Lab, Abner Conroy [facility] MEDICAL OFFICE BUILDING 1.0.114 350.1.13.10 4.2.7.2.686 [id number] [facility] 2022-09-30 09:45:00 2022-09-30 09:27:03 Outpatient R ABNER RIVERA [facility] [id number] [facility] 2022-09-30 00:00:00 2022-09-30 00:00:00 Telephone [facility] 1.114 350.1.13.10 4.2.7.2.686 [id number] [facility] 2022-09-26 00:00:00 2022-09-26 00:00:00 Telephone TayaAbner martínez [facility] BUILDING 1.114 350.1.13.10 4.2.7.2.686 [id number] [facility] 2022-09-24 13:45:00 2022-09-24 14:02:27 Outpatient R UNKNOWN, ATTENDING [facility] [id number] [facility] 2022-09-24 13:45:00 2022-09-24 14:02:27 Windsmith Visit Lab, Meng Valdez, Attending [facility] OFFICE BUILDING 1..114 350.1.13.10 4.2.7.2.686 [id number] [facility] 2022-09-20 00:00:00 2022-09-20 00:00:00 Telephone Na[facility] Solis [facility] 1.114 350.1.13.10 4.2.7.2.686 [id number] [facility] 2022-09-17 14:40:00 2022-09-17 14:40:00 Outpatient R ABNER RIVERA [facility] [id number] [facility] 2022-09-17 00:00:00 2022-09-17 00:00:00 Telephone Abner Rivera [facility] BUILDING 1.84.114 350.1.13.10 4.2.7.2.686 [id number] [facility] 2022-09-03 00:00:00 2022-09-03 00:00:00 Telephone Tomeka Reed [facility] BUILD[facility] 1.840.114 350.1.13.10 4.2.7.2.686 [id number] [facility] 2022-08-28 13:40:00 2022-08-28 13:40:00 Outpatient R KATARZYNA MORFIN [facility] [id number] [facility] 2022-08-26 13:40:00 2022-08-26 15:14:40 Outpatient R BEHZAD JOLLY [facility] [id number] [facility] 2022-08-26 13:40:00 2022-08-26 15:14:40 Office Visit Behzad Jolly do, [facility] 1..114 350.1.13.10 4.2.7.2.686 [id number] [facility] 2022-08-23 09:30:00 2022-08-23 09:54:02 Outpatient R HOLLAND-CRU NAOMIE DUNBAR [facility] [id number] [facility] 2022-08-23 09:30:00 2022-08-23 09:45:00 [facility] Visit Lab, Naomie Sharif do [facility] MEDICAL OFFICE [facility] 1.84.114 350.1.13.10 4.2.7.2.686 [id number] [facility] 2022-08-22 09:30:00 2022-08-22 09:30:00 Outpatient R HOLLAND-JAMI DUNBAR [facility] [id number] [facility] 2022-08-13 00:00:00 2022-08-13 00:00:00 Telephone Katarzyna Morfin [facility] 1.114 350.1.13.10 4.2.7.2.686 [id number] [facility] 2022-08-12 09:00:00 2022-08-12 09:27:29 Outpatient R HOLLAND-AJMI DUNBAR [facility] [id number] [facility] 2022-08-12 09:00:00 2022-08-12 09:27:29 [facility] Visit Lab, Meng Solis do [facility] OFFICE BUILDING 1.84.114 350.1.13.10 4.2.7.2.686 [id number] [facility] 2022-08-06 00:00:00 2022-08-06 00:00:00 Telephone [facility] 1.114 350.1.13.10 4.2.7.2.686 [id number] [facility] 2022-08-05 00:00:00 2022-08-05 00:00:00 Telephone [facility] 1.2.840.114 350.1.13.10 4.2.7.2.686 [id number] [facility] 2022-07-31 12:00:00 2022-07-31 12:00:00 Outpatient R [facility] [id number] [facility] 2022-07-30 15:30:00 2022-07-30 16:00:00 Office Visit ShannanPankaj [facility] 1.2.840.114 350.1.13.10 4.2.7.2.686 [id number] [facility] 2022-07-30 15:30:00 2022-07-30 15:30:00 Outpatient R [facility] [id number] [facility] 2022-07-25 00:00:00 2022-07-25 00:00:00 Abstract Katarzyna Morfin [facility] 1..840.114 350.1.13.10 4.2.7.2.686 [id number] [facility] 2022-07-23 09:00:00 2022-07-23 09:20:00 Office Visit Kurtis Kirk [facility] [facility] 1..840.114 350.1.13.10 4.2.7.2.686 [id number] [facility] 2022-07-23 09:00:00 2022-07-23 09:00:00 Outpatient R KURTIS KIRK LEAH [facility] [id number] [facility] 2022-07-22 00:00:00 2022-07-22 00:00:00 Telephone Behzad Jolly [facility] 1..114 350.1.13.10 4.2.7.2.686 [id number] [facility] 2022-07-20 00:00:00 2022-07-20 00:00:00 Refill Abner Rivera [facility] 1..114 350.1.13.10 4.2.7.2.686 [id number] [facility] 2022-07-20 00:00:00 2022-07-20 00:00:00 [facility] 1.114 350.1.13.10 4.2.7.2.686 [id number] [facility] 2022-07-17 16:15:00 2022-07-17 16:30:00 Windsmith Visit Vtc-Lab [facility]arzyna [facility] 1..114 350.1.13.10 4.2.7.2.686 [id number] [facility] 2022-07-17 14:20:00 2022-07-17 16:06:56 Outpatient R KATARZYNA MORFIN [facility] [id number] [facility] 2022-07-17 14:20:00 2022-07-17 16:06:56 Office Visit Behzad Jolly Muhammad A [facility] 1.114 350.1.13.10 4.2.7.2.686 [id number] [facility] 2022-07-17 00:00:00 2022-07-17 00:00:00 Orders Only Doctor Unassigned, [place] [facility] 1.2.840.114 350.1.13.10 4.2.7.2.686 [id number] [facility] 2022-07-12 13:15:00 2022-07-12 13:32:40 Outpatient R KATARZYNA MORFIN [facility] [id number] [facility] 2022-07-12 13:15:00 2022-07-12 13:32:40 Windsmith Visit Lab, Ang - Db Unknown, Attending Katarzyna Morfin [facility] 1.840.114 350.1.13.10 4.2.7.2.686 [id number] [facility] 2022-06-29 00:00:00 2022-06-29 00:00:00 Refill Katarzyna Morfin [facility] 1.2840.114 350.1.13.10 4.2.7.2.686 [id number] [facility] 2022-06-14 00:00:00 2022-06-14 00:00:00 Telephone Matt Iglesias [facility] 1.2.840.114 350.1.13.10 4.2.7.2.686 [id number] [facility] 2022-06-13 00:00:00 2022-06-13 00:00:00 [facility] 1.2.840.114 350.1.13.10 4.2.7.2.686 [id number] [facility] 2022-06-11 00:00:00 2022-06-11 00:00:00 [facility] 1.2840.114 350.1.13.10 4.2.7.2.686 [id number] [facility] 2022-06-04 00:00:00 2022-06-04 00:00:00 Telephone Katarzyna Morfin [facility] 1.114 350.1.13.10 4.2.7.2.686 [id number] [facility] 2022-06-03 09:40:00 2022-06-03 09:40:00 Outpatient R NAOMIE SOLIS DO [facility] [id number] [facility] 2022-06-03 00:00:00 2022-06-03 00:00:00 Telephone [facility]zyna Morfin [facility] 1.114 350.1.13.10 4.2.7.2.686 [id number] [facility] 2022-06-02 00:00:00 2022-06-02 00:00:00 Telephone [facility]zyna Morfin [facility] 1.114 350.1.13.10 4.2.7.2.686 [id number] [facility] 2022-05-30 08:30:00 2022-05-30 09:35:01 Outpatient R ABNER RIVERA [facility] [id number] [facility] 2022-05-30 08:30:00 2022-05-30 09:35:01 Windsmith Visit Lab, Abner Conroy [facility] 1..114 350.1.13.10 4.2.7.2.686 [id number] [facility] 2022-05-16 09:00:00 2022-05-16 09:00:00 Office Visit Kurtis Kirk [facility] 1.840.114 350.1.13.10 4.2.7.2.686 [id number] [facility] 2022-05-16 09:00:00 2022-05-16 08:56:34 Outpatient R KURTIS KIRK [facility] [id number] [facility] 2022-05-15 13:20:00 2022-05-15 13:20:00 Outpatient R SOHA, [facility] [id number] [facility] 2022-05-15 13:20:00 2022-05-15 13:20:00 Outpatient R SOHA, [facility] [id number] [facility] 2022-05-15 13:20:00 2022-05-15 13:20:00 Outpatient R SOHA, [facility] [id number] [facility] 2022-05-15 13:20:00 2022-05-15 13:20:00 Outpatient R SOHA, [facility] [id number] [facility] 2022-05-15 13:20:00 2022-05-15 13:20:00 Outpatient R SOHA, [facility] [id number] [facility] 2022-05-15 13:20:00 2022-05-15 13:20:00 [facility] [id number] [facility] 2022-05-07 09:30:00 2022-05-07 10:23:01 Outpatient R JUNIOR GARCIA OGECHUKWU [facility] [id number] [facility] 2022-05-07 09:30:00 2022-05-07 10:23:01 Office Visit Junior Garcia [facility] 1..840.114 350.1.13.10 4.2.7.2.686 [id number] [facility] 2022-05-07 00:00:00 2022-05-07 00:00:00 Orders Only Doctor Unassigned, [place] [facility] 1..114 350.1.13.10 4.2.7.2.686 [id number] [facility] 2022-04-25 00:00:00 2022-04-25 00:00:00 Telephone Katarzyna Morfin [facility] 1.114 350.1.13.10 4.2.7.2.686 [id number] [facility] 2022-04-17 00:00:00 2022-04-17 00:00:00 Abstract Katarzyna Morfin [facility] 1.114 350.1.13.10 4.2.7.2.686 [id number] [facility] 2022-04-15 08:49:40 2022-04-15 23:59:00 Outpatient R NAOMIE SOLIS DO [facility] [id number] [facility] 2022-04-15 08:49:40 2022-04-15 23:59:00 Hospital Encounter Naomie Solis do [facility] 1.114 350.1.13.10 4.2.7.2.686 [id number] [facility] 2022-04-15 00:00:00 2022-04-15 00:00:00 Telephone Shanae [facility] 1.114 350.1.13.10 4.2.7.2.686 [id number] [facility] 2022-04-15 00:00:00 2022-04-15 00:00:00 [facility] 1.2840.114 350.1.13.10 4.2.7.2.686 [id number] [facility] 2022-04-10 10:00:00 2022-04-10 13:03:31 Outpatient Matt PADMAJA EMERSON [facility] [id number] [facility] 2022-04-10 10:00:00 2022-04-10 13:03:31 Windsmith Visit 2, [facility] PROFESSIO NAL BUILDING 1.2840.114 350.1.13.10 4.2.7.2.686 [id number] [facility] 2022-04-05 00:00:00 2022-04-05 00:00:00 Telephone Katarzyna Morfin [facility] 1.0.114 350.1.13.10 4.2.7.2.686 [id number] [facility] 2022-04-04 00:00:00 2022-04-04 00:00:00 Telephone Behzad Jolly [facility] 1.20.114 350.1.13.10 4.2.7.2.686 [id number] [facility] 2022-04-01 14:20:00 2022-04-01 14:40:00 Nurse Visit Nurse, [facility] Naomie Mccabe do [facility] PROFESS[facility] NAL BUILDING 1.2840.114 350.1.13.10 4.2.7.2.686 [id number] [id number] [facility] 2022-04-01 11:30:00 2022-04-01 13:12:10 Outpatient NAOMIE HAQ DO [facility] [id number] [facility] 2022-04-01 11:30:00 2022-04-01 11:45:00 Windsmith Visit 2, Adc Lab Will dunbar, Naomie K N [facility] BUILDING 1.2.840.114 350.1.13.10 4.2.7.2.686 [id number] [facility] 2022-04-01 00:00:00 2022-04-01 00:00:00 Refill Abner Rivera [facility] 1.2.840.114 350.1.13.10 4.2.7.2.686 [id number] [facility] 2022-03-28 00:00:00 2022-03-28 00:00:00 Refill Abner Rivera [facility] 1.2.840.114 350.1.13.10 4.2.7.2.686 [id number] [facility] 2022-03-22 00:00:00 2022-03-22 00:00:00 Refill Abner Rivera [facility] 1.2.840.114 350.1.13.10 4.2.7.2.686 [id number] [id number] [facility] 2022-03-22 00:00:00 2022-03-22 00:00:00 Refill Parminder Rueda [facility] 1.2.840.114 350.1.13.10 4.2.7.2.686 [id number] [facility] 2022-03-14 00:00:00 2022-03-14 00:00:00 Telephone Abner Rivera [facility] 1.2.840.114 350.1.13.10 4.2.7.2.686 [id number] 044 [id number] [facility] 2022-03-13 00:00:00 2022-03-13 00:00:00 Telephone Shanae [facility] M[facility]PEC [facility] 1..114 350.1.13.10 4.2.7.2.686 [id number] [facility] 2022-03-12 15:30:00 2022-03-12 16:12:38 Outpatient R JUNIOR GARCIA OGECHUKWU [facility] [id number] [facility] 2022-03-12 15:30:00 2022-03-12 16:12:38 Office Visit Junior Garcia [facility] 1.114 350.1.13.10 4.2.7.2.686 [id number] 044 [id number] [facility] 2022-03-12 14:30:00 2022-03-12 14:45:00 Windsmith Visit 2, Adc Lab Shanae [facility] BUILDING 1.114 350.1.13.10 4.2.7.2.686 [id number] [facility] 2022-02-26 09:00:00 2022-02-26 13:35:11 Outpatient R KURTIS KIRK [facility] [id number] [facility] 2022-02-26 09:00:00 2022-02-26 13:35:11 Office Visit Kurtis Kirk [facility] M[facility]PEC [facility] 1.114 350.1.13.10 4.2.7.2.686 [id number] [facility] 2022-02-08 00:00:00 2022-02-08 00:00:00 Isreal [facility] 1.114 350.1.13.10 4.2.7.2.686 [id number] [facility] 2022-02-04 13:00:00 2022-02-04 13:10:00 Imm/Inj Visit Vaccine, [facility] 1.2.840.114 350.1.13.10 4.2.7.2.686 [id number] [facility] 2022-02-04 11:30:00 2022-02-04 12:05:54 Outpatient R PANKAJ GARCIAMONAEKAYODE GARCIA [facility] [id number] [facility] 2022-02-04 11:30:00 2022-02-04 12:05:54 Office Visit Shannan Javonkayode [facility] BU[facility] 1..840.114 350..13.10 4.2.7.2.686 [id number] [facility] 2022-01-30 15:00:00 2022-01-30 15:00:00 Outpatient R ABNER RIVERA [facility] [id number] [facility] 2022-01-30 15:00:00 2022-01-30 15:00:00 Outpatient R NICOLE [facility] [id number] [facility] 2022-01-28 10:00:00 2022-01-28 11:41:19 Outpatient R RORY JOLLY, [facility] [id number] [facility] 2022-01-28 10:00:00 2022-01-28 11:41:19 Office Visit Behzad Jolly do, Naomie Jolly [facility] 1..840.114 350.1.13.10 4.2.7.2.686 [id number] [facility] 2022-01-28 00:00:00 2022-01-28 00:00:00 Telephone Behzad Jolly [facility] M[facility]ISPEC [facility] 1.114 350.1.13.10 4.2.7.2.686 [id number] [facility] 2022-01-24 12:00:00 2022-01-24 12:56:43 Outpatient ABNER CARDONA [facility] [id number] [facility] 2022-01-24 12:00:00 2022-01-24 12:56:43 Windsmith Visit Lab, [facility] 1.84.114 350.1.13.10 4.2.7.2.686 [id number] [facility] 2022-01-17 10:40:00 2022-01-17 17:36:05 Outpatient KURTIS MORENO LE[facility] [id number] [facility] 2022-01-17 10:40:00 2022-01-17 11:00:00 Office Visit [facility] 1.84.114 350.1.13.10 4.2.7.2.686 [id number] [facility] 2022-01-17 10:40:00 2022-01-17 10:40:00 Outpatient [facility] [id number] [facility] 2022-01-14 00:00:00 2022-01-14 00:00:00 Orders Only Doctor Unassigned, [place] [facility] 1..114 350.1.13.10 4.2.7.2.686 [id number] [facility] 2022-01-03 14:00:00 2022-01-03 14:00:00 Outpatient KATARZYNA VIDAL [facility] [id number] [facility] 2022-01-03 14:00:00 2022-01-03 14:00:00 Outpatient R KATARZYNA MORFIN [facility] [id number] [facility] 2022-01-03 14:00:00 2022-01-03 14:00:00 Outpatient R KATARZYNA MORFIN [facility] [id number] [facility] 2022-01-03 14:00:00 2022-01-03 14:00:00 Outpatient R LAWRENCE MORFINMAD [facility] [id number] [facility] 2022-01-03 14:00:00 2022-01-03 14:00:00 Outpatient R KATARZYNA MORFIN [facility] [id number] [facility] 2022-01-02 00:00:00 2022-01-02 00:00:00 Telephone Alexandrea Segundo [facility] 1.2.840.114 350.1.13.10 4.2.7.2.686 [id number] [facility] 2021-12-26 15:00:00 2021-12-26 15:56:20 Outpatient R NICOLEABNER [facility] [id number] [facility] 2021-12-26 15:00:00 2021-12-26 15:56:20 Outpatient R HERMILAOLIMPIA ABNER [facility] [id number] [facility] 2021-12-26 15:00:00 2021-12-26 15:56:20 Office Visit HermilajinAbner martínez [facility] NAL BUILDING 1.2.840.114 350.1.13.10 4.2.7.2.686 [id number] [facility] 2021-12-21 00:00:00 2021-12-21 00:00:00 Telephone Behzad Jolly [facility] 1.114 350.1.13.10 4.2.7.2.686 [id number] [facility] 2021-12-20 11:15:00 2021-12-20 11:15:00 Outpatient R NICOLE [facility] [id number] [facility] 2021-12-20 11:15:00 2021-12-20 11:15:00 Windsmith Visit Lab, Meng - Hans [facility] 1..114 350.1.13.10 4.2.7.2.686 [id number] [facility] 2021-12-20 11:15:00 2021-12-20 11:01:30 Outpatient R NICOLE [facility] [id number] [facility] 2021-12-20 11:15:00 2021-12-20 11:01:30 Outpatient R NICOLE [facility] [id number] [facility] 2021-12-17 00:00:00 2021-12-17 00:00:00 Transition of Care Cassius Deras 1.840.114 350.1.13.10 4.2.7.2.686 [id number] [facility] 2021-12-13 10:51:00 2021-12-15 17:59:00 Inpatient U ASHWIN WILSON [facility] AKANKSHA [id number] [facility] 2021-12-13 10:51:00 2021-12-15 17:59:00 Hospital Encounter Nkechi Malave, Ashwin Lloyd [facility] 1..114 350.1.13.10 4.2.7.2.686 [id number] [facility] 2021-12-13 10:51:00 2021-12-15 17:59:00 Inpatient U ASHWIN WILSON [facility] AKANKSHA [id number] [facility] 2021-12-13 00:00:00 2021-12-13 00:00:00 Telephone Will dunbar, Naomie Villeda [facility] MULTISPEC [facility] 1..840.114 350.1.13.10 4.2.7.2.686 [id number] [facility] 2021-11-26 00:00:00 2021-11-26 00:00:00 Telephone Tomeka Reed [facility] 1..840.114 350.1.13.10 4.2.7.2.686 [id number] [facility] 2021-11-21 15:00:00 2021-11-21 16:16:51 Outpatient R ABNER RIVERA [facility] [id number] [facility] 2021-11-21 15:00:00 2021-11-21 16:16:51 Office Visit Abner Rivera [facility] 1..840.114 350.1.13.10 4.2.7.2.686 [id number] [facility] 2021-11-21 15:00:00 2021-11-21 16:16:51 Outpatient R ABNER RIVERA [facility] [id number] [facility] 2021-11-21 15:00:00 2021-11-21 15:00:00 Outpatient R ABNER RIVERA [facility] [id number] [facility] 2021-11-14 10:30:00 2021-11-14 10:45:00 Windsmith Visit 2, Adc Lab Nicole [facility] BUILDING 1..840.114 350.1.13.10 4.2.7.2.686 [id number] [facility] 2021-11-14 10:30:00 2021-11-14 10:45:00 Windsmith Visit 2, Adc Lab HermilajinmagenermiasAbner [facility] 1.2.840.114 350.1.13.10 4.2.7.2.686 [id number] [facility] 2021-11-14 09:30:00 2021-11-14 09:32:21 Outpatient R JUNIOR GARCIA OGECHUKWU [facility] [id number] [facility] 2021-11-14 09:30:00 2021-11-14 09:32:21 Office Visit Junior Garcia [facility] BUILD[facility] 1.2.840.114 350.1.13.10 4.2.7.2.686 [id number] [facility] 2021-11-05 14:00:00 2021-11-05 14:00:00 Outpatient R DESMOND ISREAL [facility] [id number] [facility] 2021-11-05 14:00:00 2021-11-05 14:00:00 Outpatient R DESMOND ISREAL [facility] [id number] [facility] 2021-10-18 08:00:00 2021-10-18 08:00:00 Outpatient R KATARZYNA MORFIN [facility] [id number] [facility] 2021-10-18 08:00:00 2021-10-18 08:00:00 Outpatient R KATARZYNA MORFIN [facility] [id number] [facility] 2021-10-12 00:00:00 2021-10-12 00:00:00 Refill HermilaolimpiaAbner [facility] BUILD[facility] 1.2.840.114 350.1.13.10 4.2.7.2.686 [id number] [facility] 2021-10-04 00:00:00 2021-10-04 00:00:00 Telephone Nicole Pelaez [facility] 1.2840.114 350.1.13.10 4.2.7.2.686 [id number] [facility] 2021-10-02 08:40:00 2021-10-02 09:11:54 Outpatient R HERMILAABNER SEE [facility] [id number] [facility] 2021-10-02 08:00:00 2021-10-02 09:11:36 Office Visit Abner Rivera [facility] 1.2840.114 350.1.13.10 4.2.7.2.686 [id number] [facility] 2021-10-02 08:40:00 2021-10-02 09:00:00 Office Visit Abner Rivera [facility] 1.2840.114 350.1.13.10 4.2.7.2.686 [id number] [facility] 2021-10-02 08:40:00 2021-10-02 08:40:00 Outpatient R HERMILAOLIMPIA ABNER [facility] [id number] [facility] 2021-10-02 08:00:00 2021-10-02 08:00:00 Outpatient R ABNER RIVERA [facility] [id number] [facility] 2021-10-02 00:00:00 2021-10-02 00:00:00 Orders Only Doctor Unassigned, [place] [facility] 1.2840.114 350.1.13.10 4.2.7.2.686 [id number] [facility] 2021-09-26 08:45:00 2021-09-26 09:00:00 Windsmith Visit 2, Adc Lab Abner [facility] 1.2.840.114 350.1.13.10 4.2.7.2.686 [id number] [facility] 2021-09-26 08:45:00 2021-09-26 08:45:00 Outpatient R ABNER RIVERA [facility] [id number] [facility] 2021-09-26 08:45:00 2021-09-26 08:45:00 Outpatient R ABNER RIVERA [facility] [id number] [facility] 2021-09-26 08:45:00 2021-09-26 08:45:00 Outpatient R ABNER RIVERA [facility] [id number] [facility] 2021-09-26 08:45:00 2021-09-26 08:45:00 Outpatient R ABNER RIVERA [facility] [id number] [facility] 2021-09-26 08:45:00 2021-09-26 08:45:00 Outpatient R ABNER RIVERA [facility] [id number] [facility] 2021-09-25 00:00:00 2021-09-25 00:00:00 Telephone Abner Rivera [facility] 1..840.114 350.1.13.10 4.2.7.2.686 [id number] [facility] 2021-09-18 14:00:00 2021-09-18 15:08:38 Outpatient R ABNER RIVERA [facility] [id number] [facility] 2021-09-18 14:00:00 2021-09-18 15:08:38 Office Visit Abner Rivera [facility] 1.2.840.114 350.1.13.10 4.2.7.2.686 [id number] [facility] 2021-09-18 14:00:00 2021-09-18 15:08:38 Outpatient R ABNER RIVERA [facility] [id number] [facility] 2021-09-18 14:00:00 2021-09-18 14:00:00 Outpatient R ABNER RIVERA [facility] [id number] [facility] 2021-09-18 14:00:00 2021-09-18 14:00:00 Outpatient R ABNER RIVERA [facility] [id number] [facility] 2021-09-06 14:45:00 2021-09-06 15:00:00 [facility] Visit [facility] 1..840.114 350.1.13.10 4.2.7.2.686 [id number] [facility] 2021-09-06 14:45:00 2021-09-06 14:45:00 [facility] [id number] 2021-09-06 13:40:00 2021-09-06 14:26:55 [facility] [place] 1..840.114 350.1.13.10 4.2.7.2.686 [id number] [facility] 2021-09-06 13:40:00 2021-09-06 14:26:55 [facility] [id number] [facility] 2021-09-06 13:40:00 2021-09-06 13:40:00 Outpatient R KATARZYNA MORFIN [facility] [id number] [facility] 2021-09-06 00:00:00 2021-09-06 00:00:00 Telephone Tomeka Reed [facility] 1.2.840.114 350.1.13.10 4.2.7.2.686 [id number] [facility] 2021-09-03 14:00:00 2021-09-03 14:00:00 Outpatient R KATARZYNA MORFIN [facility] [id number] [facility] 2021-09-03 13:30:00 2021-09-03 13:41:21 Imm/Inj Visit Vaccine, [facility] Nelly Parker [facility] 1.2.840.114 350.1.13.10 4.2.7.2.686 [id number] [facility] 2021-09-03 13:30:00 2021-09-03 13:30:00 Outpatient R PARKER, NELLY [facility] [id number] [facility] 2021-09-03 13:15:00 2021-09-03 13:30:00 [place] Visit 2, [facility] 1.2.840.114 350.1.13.10 4.2.7.2.686 [id number] [facility] 2021-09-03 13:15:00 2021-09-03 13:15:00 Outpatient R [facility] [id number] [facility] 2021-09-03 13:15:00 2021-09-03 13:15:00 Outpatient R [facility] [id number] [facility] 2021-09-03 13:15:00 2021-09-03 13:15:00 [facility] [id number] [facility] 2021-09-03 13:15:00 2021-09-03 13:15:00 [facility] [id number] [facility] 2021-08-22 02:19:00 2021-08-22 02:19:00 Outpatient SUSANNE_SHENG_Y AW [facility] [id number] Milo avalos [facility] 2021-08-13 15:00:00 2021-08-13 15:00:00 Outpatient R [facility] [id number] [facility] 2021-08-13 14:00:00 2021-08-13 14:26:07 Outpatient R [facility] [id number] [facility] 2021-08-13 14:00:00 2021-08-13 14:26:07 [facility] 1..840.114 350.1.13.10 4.2.7.2.686 [id number] [facility] 2021-07-20 00:00:00 2021-07-20 00:00:00 Telephone Will dunbar, Naomie Villeda [facility] 1..840.114 350.1.13.10 4.2.7.2.686 [id number] [facility] 2021-07-18 00:00:00 2021-07-18 00:00:00 Isreal [facility] 1..840.114 350.1.13.10 4.2.7.2.686 [id number] [facility] 2021-07-16 15:30:00 2021-07-16 15:30:00 Outpatient R [facility] [id number] [facility] 2021-07-16 15:30:00 2021-07-16 15:30:00 Outpatient R [facility] [id number] [facility] 2021-07-11 00:00:00 2021-07-11 00:00:00 Telephone Naomie Solis do [facility] 1.840.114 350.1.13.10 4.2.7.2.686 [id number] [facility] 2021-07-02 13:45:50 2021-07-02 23:59:00 Outpatient R BRENDA RAPHAEL [facility] [id number] [facility] 2021-07-02 13:45:50 2021-07-02 23:59:00 Hospital Encounter Brenda Raphael [facility] 1..840.114 350.1.13.10 4.2.7.2.686 [id number] [facility] 2021-07-02 13:45:50 2021-07-02 23:59:00 Outpatient R BRENDA RAPHAEL [facility] [id number] [facility] 2021-07-01 00:00:00 2021-07-01 00:00:00 Behzad Larsen [facility] 1.840.114 350.1.13.10 4.2.7.2.686 [id number] [facility] 2021-06-26 14:38:50 2021-06-26 23:59:00 Outpatient TOMEKA TERRELL [facility] [id number] [facility] 2021-06-20 13:38:53 2021-06-20 23:59:00 Hospital Encounter Brenda Raphael [facility] 1..840.114 350.1.13.10 4.2.7.2.686 [id number] [facility] 2021-06-20 00:00:00 2021-06-20 23:59:00 Outpatient R BRENDA RAPHAEL [facility] [id number] [facility] 2021-06-20 00:00:00 2021-06-20 23:59:00 Outpatient R BRENDA RAPHAEL [facility] [id number] [facility] 2021-06-20 00:00:00 2021-06-20 23:59:00 Outpatient R BRENDA RAPHAEL [facility] [id number] [facility] 2021-06-20 00:00:00 2021-06-20 23:59:00 Outpatient R BRENDA RAPHAEL [facility] [id number] [facility] 2021-06-20 00:00:00 2021-06-20 23:59:00 Outpatient R BRENDA RAPHAEL [facility] [id number] [facility] 2021-06-13 08:00:00 2021-06-13 08:21:22 Outpatient R BRENDA RAPHAEL [facility] [id number] [facility] 2021-06-13 08:00:00 2021-06-13 08:21:22 Office Visit Brenda Raphael [facility] 1..114 350.1.13.10 4.2.7.2.686 [id number] [facility] 2021-06-13 08:00:00 2021-06-13 08:00:00 Outpatient R BRENDA RAPHAEL [facility] [id number] [facility] 2021-06-11 00:00:00 2021-06-11 00:00:00 Abstract Katarzyna Morfin [facility] 1.114 350.1.13.10 4.2.7.2.686 [id number] [facility] 2021-06-07 14:15:00 2021-06-07 14:45:00 Windsmith Visit Vtc-Lab Katarzyna Morfin [facility] 1.114 350.1.13.10 4.2.7.2.686 [id number] [facility] 2021-06-07 13:20:00 2021-06-07 14:00:27 Outpatient R KATARZYNA MORFIN [facility] [id number] [facility] 2021-06-07 13:20:00 2021-06-07 14:00:27 Office Visit Behzad Jolly Muhammad A [facility] 1.2.840.114 350.1.13.10 4.2.7.2.686 [id number] [facility] 2021-06-07 13:20:00 2021-06-07 14:00:27 Outpatient R LAWRENCE MORFINMAD [facility] [id number] [facility] 2021-06-04 14:30:00 2021-06-04 14:49:47 Outpatient R KATARZYNA MORFIN [facility] [id number] [facility] 2021-06-04 14:30:00 2021-06-04 14:49:47 Windsmith Visit Lab, Meng - [facility] 1.2.840.114 350.1.13.10 4.2.7.2.686 [id number] [facility] 2021-06-04 14:30:00 2021-06-04 14:49:47 Outpatient R KATARZYNA MORFIN [facility] [id number] [facility] 2021-06-04 14:30:00 2021-06-04 14:49:47 Outpatient R KATARZYNA MORFIN [facility] [id number] [facility] 2021-06-04 14:30:00 2021-06-04 14:49:47 Outpatient R KATARZYNA MORFIN [facility] [id number] [facility] 2021-06-04 14:30:00 2021-06-04 14:30:00 Outpatient R KATARZYNA MORFIN [facility] [id number] [facility] 2021-06-04 08:00:00 2021-06-04 08:00:00 Outpatient R NAOMIE SOLIS DO [facility] [id number] [facility] 2021-06-04 08:00:00 2021-06-04 08:00:00 Outpatient R NAOMIE SOLIS DO [facility] [id number] [facility] 2021-06-04 00:00:00 2021-06-04 00:00:00 Orders Only Doctor Unassigned, [place] [facility] 1..114 350.1.13.10 4.2.7.2.686 [id number] [facility] 2021-06-04 00:00:00 2021-06-04 00:00:00 Telephone Isreal Logan [employer] [facility] 1.840.114 350.1.13.10 4.2.7.2.686 [id number] [facility] 2021-06-01 00:00:00 2021-06-01 00:00:00 Telephone Naomie Solis do [facility] 1.114 350.1.13.10 4.2.7.2.686 [id number] [facility] 2021-05-25 00:00:00 2021-05-25 00:00:00 Telephone [facility] 1.84.114 350.1.13.10 4.2.7.2.686 [id number] [facility] 2021-05-23 00:00:00 2021-05-23 00:00:00 Refill Isreal Logan [facility] 1.2.840.114 350.1.13.10 4.2.7.2.686 [id number] [facility] 2021-05-22 14:00:00 2021-05-22 23:59:00 Out[facility] [id number] [facility] 2021-05-22 14:00:00 2021-05-22 23:59:00 Hospital Encounter Soha [facility] BUILDING 1..840.114 350.1.13.10 4.2.7.2.686 [id number] [facility] 2021-05-22 14:00:00 2021-05-22 14:00:00 [facility] [id number] [facility] 2021-05-21 15:30:00 2021-05-21 15:30:00 Office Visit Isreal Logan [facility] 1.2.840.114 350.1.13.10 4.2.7.2.686 [id number] [facility] 2021-05-21 15:30:00 2021-05-21 15:18:08 Outpatient R ISREAL LOGAN [facility] [id number] [facility] 2021-05-15 15:00:00 2021-05-15 15:33:39 [facility] [id number] [facility] 2021-05-15 15:00:00 2021-05-15 15:33:39 Office Visit Soha [facility] BUILDING 1..840.114 350.1.13.10 4.2.7.2.686 [id number] [facility] 2021-05-15 15:00:00 2021-05-15 15:33:39 Outpatient R TMOEKA REED [facility] [id number] [facility] 2021-05-15 15:00:00 2021-05-15 15:00:00 [facility] [id number] [facility] 2021-05-15 15:00:00 2021-05-15 15:00:00 [facility] [id number] [facility] 2021-05-10 00:00:00 2021-05-10 00:00:00 Case Management DesmondIsreal delarosa [facility] MEDICAL OFFICE BUILDING 1.2.840.114 350.1.13.10 4.2.7.2.686 [id number] [facility] 2021-05-09 14:00:00 2021-05-09 14:52:25 Outpatient R DESMONDISREAL DELAROSA [facility] [id number] [facility] 2021-05-09 14:00:00 2021-05-09 14:52:25 Outpatient R DESMONDISREAL DELAROSA [facility] [id number] [facility] 2021-05-09 14:00:00 2021-05-09 14:52:25 Outpatient R DESMONDISREAL DELAROSA [facility] [id number] [facility] 2021-05-09 14:00:00 2021-05-09 14:52:25 Outpatient R DESMONDISREAL DELAROSA [facility] [id number] [facility] 2021-05-09 14:00:00 2021-05-09 14:15:00 Windsmith Visit Lab, Ang - Db DesmondIsreal delarosa [facility] MEDICAL OFFICE BUILDING 1.2.840.114 350.1.13.10 4.2.7.2.686 [id number] [facility] 2021-05-09 14:00:00 2021-05-09 14:00:00 Outpatient R ISREAL LOGAN [facility] [id number] [facility] 2021-05-07 08:45:00 2021-05-07 09:14:41 Outpatient R ISREAL LOGAN [facility] [id number] [facility] 2021-05-07 08:45:00 2021-05-07 09:14:41 Office Visit FajardoAlex delarosadiogenes [facility] 1.2.840.114 350.1.13.10 4.2.7.2.686 [id number] [facility] 2021-05-07 08:45:00 2021-05-07 09:14:41 Outpatient R ISREAL LOGAN [facility] [id number] [facility] 2021-05-07 08:45:00 2021-05-07 08:45:00 Outpatient R ISREAL LOGAN [facility] [id number] [facility] 2021-05-07 08:30:00 2021-05-07 08:30:00 Outpatient R ISREAL LOGAN [facility] [id number] [facility] 2021-05-01 13:00:00 2021-05-01 13:15:00 Windsmith Visit [facility] Kain Julien [facility] .2.840.114 350.1.13.10 4.2.7.2.686 [id number] [facility] 2021-05-01 13:00:00 2021-05-01 13:00:00 Outpatient R DANILO JULIENL FERMIN STRABRENDAL [facility] [id number] [facility] 2021-05-01 13:00:00 2021-05-01 13:00:00 Outpatient R FERMIN STRAHIL CORDELLNASHI STRAHIL [facility] [id number] [facility] 2021-05-01 00:00:00 2021-05-01 00:00:00 Orders Only Doctor Unassigned, [place] [facility] 1.2.840.114 350.1.13.10 4.2.7.2.686 [id number] [facility] 2021-04-30 00:00:00 2021-04-30 00:00:00 Refill Isreal Logan A [facility] MEDICAL OFFICE BUILDING 1.2.840.114 350.1.13.10 4.2.7.2.686 [id number] [facility] 2021-04-28 00:00:00 2021-04-28 00:00:00 Refill Isreal Logan A [facility] MED[facility] OFFICE BUILDING 1.2.840.114 350.1.13.10 4.2.7.2.686 [id number] [facility] 2021-04-27 14:45:00 2021-04-27 15:00:00 Laboratory Only Only, Adc Test Kain Julien T [facility] 1.2.840.114 350.1.13.10 4.2.7.2.686 [id number] [facility] 2021-04-27 14:45:00 2021-04-27 14:45:00 Outpatient R [facility] [id number] [facility] 2021-04-27 14:45:00 2021-04-27 14:45:00 Outpatient R KAIN JULIEN STRAHIL [facility] [id number] [facility] 2021-04-27 14:45:00 2021-04-27 14:45:00 Outpatient R KAIN JULIEN STRAHIL [facility] [id number] [facility] 2021-04-25 14:00:00 2021-04-25 14:00:00 Outpatient R ZARI RUIZ [facility] [id number] [facility] 2021-04-19 14:00:00 2021-04-19 14:35:40 Outpatient R ISREAL LOGAN [facility] [id number] [facility] 2021-04-19 14:00:00 2021-04-19 14:35:40 Office Visit Isreal Logan [facility] MEDICAL OFFICE BUILDING 1.84114 350.1.13.10 4.2.7.2.686 [id number] [facility] 2021-04-19 14:00:00 2021-04-19 14:00:00 Outpatient R ISREAL LOGAN [facility] [id number] [facility] 2021-04-17 00:00:00 2021-04-17 00:00:00 [facility] MEDICAL OFFICE BUILDING 1.114 350.1.13.10 4.2.7.2.686 [id number] [facility] 2021-04-16 09:20:00 2021-04-16 09:40:00 Office Visit Behzad Jolly do[facility] 1.114 350.1.13.10 4.2.7.2.686 [id number] [facility] 2021-04-16 09:20:00 2021-04-16 09:20:00 Outpatient R NAOMIE SOLIS DO [facility] [id number] [facility] 2021-04-16 08:45:00 2021-04-16 09:00:00 Windsmith Visit Vtc-Lab Will dunbar, [facility] 1.114 350.1.13.10 4.2.7.2.686 [id number] [facility] 2021-04-09 00:00:00 2021-04-09 00:00:00 Telephone [facility] MED[facility] OFFICE BUILDING 1.2.840.114 350.1.13.10 4.2.7.2.686 [id number] [facility] 2021-03-30 00:00:00 2021-03-30 00:00:00 Orders Only Doctor Unassigned, [place] [facility] 1.2.840.114 350.1.13.10 4.2.7.2.686 [id number] [facility] 2021-03-29 17:01:51 2021-03-29 17:11:33 Windsmith Visit Lab, Ang - Db DesmondIsreal delarosa [facility] MEDICAL OFFICE BUILDING 1.2.840.114 350.1.13.10 4.2.7.2.686 [id number] [facility] 2021-03-29 16:00:00 2021-03-29 17:03:58 Outpatient R ISREAL LOGAN [facility] [id number] [facility] 2021-03-29 15:49:02 2021-03-29 17:03:58 Office Visit DesmondIsreal delarosa [facility] MEDICAL OFFICE BUILDING 1.2.840.114 350.1.13.10 4.2.7.2.686 [id number] [facility] 2021-03-29 17:00:00 2021-03-29 17:00:00 Outpatient R ISREAL LOGAN [facility] [id number] [facility] 2021-03-29 15:30:00 2021-03-29 15:30:00 Outpatient R RADHA STAHL SHIWAN [facility] [id number] [facility] 2021-03-27 00:00:2021-03-27 00:00:00 Telephone Isreal [facility] MEDICAL OFFICE BUILDING 1.2.840.114 350.1.13.10 4.2.7.2.686 [id number] [facility] 2021-03-24 00:00:00 2021-03-24 00:00:00 Refill Isreal Logan [facility] MEDICAL OFFICE BUILDING 1.2.840.114 350.1.13.10 4.2.7.2.686 [id number] [facility] 2021-03-20 00:00:00 2021-03-20 00:00:00 Telephone Isreal Logan [facility] MEDICAL OFFICE BUILDING 1.2.840.114 350.1.13.10 4.2.7.2.686 [id number] [facility] 2021-03-19 00:00:00 2021-03-19 00:00:00 Telephone Isreal Logan [facility] MEDICAL OFFICE BUILDING 1.2840.114 350.1.13.10 4.2.7.2.686 [id number] [facility] 2021-03-16 00:00:00 2021-03-16 00:00:00 Telephone [facility]is [facility] 1.2840.114 350.1.13.10 4.2.7.2.686 [id number] [facility] 2021-03-15 14:47:13 2021-03-15 23:59:00 Outpatient R RADHA STAHL SHIWAN [facility] [id number] [facility] 2021-03-15 14:47:13 2021-03-15 23:59:00 Hospital Encounter Radha Stahl [facility] 1.2840.114 350.1.13.10 4.2.7.2.686 [id number] [facility] 2021-03-15 00:00:00 2021-03-15 00:00:00 Refill Will dunbar, Naomie Villeda [facility] MULT[facility]PEC [facility] 1.114 350.1.13.10 4.2.7.2.686 [id number] [facility] 2021-03-14 00:00:00 2021-03-14 00:00:00 Refill FajardoIsreal delarosa [facility] MEDICAL OFFICE BUILDING 1.114 350.1.13.10 4.2.7.2.686 [id number] [facility] 2021-03-13 00:00:00 2021-03-13 00:00:00 Telephone Desmond Alexmcful Nelson [facility] MEDICAL OFFICE BUILDING 1.114 350.1.13.10 4.2.7.2.686 [id number] [facility] 2021-02-27 00:00:00 2021-02-27 00:00:00 Refill FajardoRussell delarosaful Nelson [facility] MEDICAL OFFICE BUILDING 1.114 350.1.13.10 4.2.7.2.686 [id number] [facility] 2021-02-12 09:42:17 2021-02-12 09:57:17 Windsmith Visit [facility] Zari Ruiz [facility] 1.114 350.1.13.10 4.2.7.2.686 [id number] [facility] 2021-02-12 08:54:51 2021-02-12 09:24:51 Office Visit Zari Ruiz [facility] 1..840.114 350.1.13.10 4.2.7.2.686 [id number] [facility] 2021-02-12 09:00:00 2021-02-12 09:00:00 [facility] [id number] 2021-02-12 09:00:00 2021-02-12 09:00:00 Outpatient R FLO RUIZA [facility] [id number] [facility] 2021-02-12 09:00:00 2021-02-12 09:00:00 [facility] [id number] [facility] 2021-02-03 00:00:00 2021-02-03 00:00:00 Isreal Warren A [facility] 1..840.114 350.1.13.10 4.2.7.2.686 [id number] [facility] 2021-01-22 08:00:00 2021-01-22 08:00:00 Outpatient R NAOMIE SOLIS DO [facility] [id number] [facility] 2021-01-22 00:00:00 2021-01-22 00:00:00 Telephone Parminder [facility]ued[facility] 1..840.114 350.1.13.10 4.2.7.2.686 [id number] [facility] 2021-01-18 10:30:00 2021-01-18 11:11:44 Outpatient R RADHA STAHL [facility] [id number] [facility] 2021-01-18 10:30:00 2021-01-18 11:11:44 Outpatient R RADHA STAHL SHIWAN [facility] [id number] [facility] 2021-01-18 10:21:37 2021-01-18 11:11:44 Office Visit Radha Stahl [facility] 1.2.840.114 350.1.13.10 4.2.7.2.686 [id number] [facility] 2021-01-12 00:00:00 2021-01-12 00:00:00 Refill Isreal Logan [facility] 1..840.114 350.1.13.10 4.2.7.2.686 [id number] [facility] 2021-01-12 00:00:00 2021-01-12 00:00:00 Telephone Naomie Solis do [facility] 1.84.114 350.1.13.10 4.2.7.2.686 [id number] [facility] 2021-01-12 00:00:00 2021-01-12 00:00:00 Orders Only Doctor Unassigned, [place] [facility] 1.284.114 350.1.13.10 4.2.7.2.686 [id number] [facility] 2021-01-09 00:00:00 2021-01-09 00:00:00 Refill Isreal Logan [facility] 1.2.840.114 350.1.13.10 4.2.7.2.686 [id number] [facility] 2020-12-29 13:40:00 2020-12-29 13:59:22 Outpatient R TOMEKA REED [facility] [id number] [facility] 2020-12-29 13:36:44 2020-12-29 13:59:22 [facility] 1..840.114 350.1.13.10 4.2.7.2.686 [id number] [facility] 2020-12-29 12:40:00 2020-12-29 12:40:00 Outpatient R BRAN MARIE [facility] [id number] [facility] 2020-12-29 12:34:50 2020-12-29 12:35:03 Imm/Inj Visit Nurse, Victoria Pob Immunizatio [facility] 1..840.114 350.1.13.10 4.2.7.2.686 [id number] [facility] 2020-12-11 14:30:24 2020-12-11 23:59:00 Outpatient R ISREAL LOGAN [facility] [id number] [facility] 2020-12-11 14:30:00 2020-12-11 23:59:00 Hospital Encounter Alex Logandiogenes Damon [facility] 1.840.114 350.1.13.10 4.2.7.2.686 [id number] [facility] 2020-11-30 07:39:24 2020-11-30 09:31:06 Office Visit Parminder Rueda [facility] 1.840.114 350.1.13.10 4.2.7.2.686 [id number] [facility] 2020-11-30 08:00:00 2020-11-30 08:00:00 Outpatient R KATARZYNA MORFIN [facility] [id number] [facility] 2020-11-30 00:00:00 2020-11-30 00:00:00 Orders Only Doctor Unassigned, [place] [facility] 1.2.840.114 350.1.13.10 4.2.7.2.686 [id number] [facility] 2020-11-28 00:00:00 2020-11-28 00:00:00 Telephone [facility]zyna [facility] 1.284.114 350.1.13.10 4.2.7.2.686 [id number] [facility] 2020-11-21 17:44:05 2020-11-21 23:59:00 Hospital Encounter Leland [facility] 1.2.114 350.1.13.10 4.2.7.2.686 [id number] [facility] 2020-11-21 17:43:47 2020-11-21 17:43:47 [facility] 1.2.114 350.1.13.10 4.2.7.2.686 [id number] [facility] 2020-11-21 17:43:47 2020-11-21 17:43:47 Outpatient R LELAND MACHO [facility] [id number] [facility] 2020-11-21 17:43:47 2020-11-21 17:43:47 Outpatient R LELAND MACHO [facility] [id number] [facility] 2020-11-21 17:43:28 2020-11-21 17:43:28 [facility] 1.20.114 350.1.13.10 4.2.7.2.686 [id number] [facility] 2020-11-21 16:46:28 2020-11-21 17:25:39 Urgent Care [facility] Building One 1.2.840.114 350.1.13.10 4.2.7.2.686 [id number] 044 [id number] [facility] 2020-11-21 15:58:15 2020-11-21 16:31:56 Office Visit Jasmyne Parikh [facility] Building 1.2840.114 350.1.13.10 4.2.7.2.686 [id number] [facility] 2020-11-21 16:00:00 2020-11-21 16:00:00 Outpatient R JASMYNE PARIKH [facility] [id number] [facility] 2020-11-14 13:00:00 2020-11-14 13:00:00 Outpatient RAFAELA BLOUNT [facility] [id number] [facility] 2020-11-09 00:00:00 2020-11-09 00:00:00 Outpatient ISREAL SCHWARTZ [facility] [id number] [facility] 2020-11-07 07:20:00 2020-11-07 10:19:00 Hospital Encounter Jasmyne Parikh [facility] Surgical [place] 1.2.114 350.1.13.10 4.2.7.2.686 [id number] [id number] [facility] 2020-11-07 08:30:00 2020-11-07 09:25:00 Surgery Jasmyne Parikh [facility] Surgical [place] 1.2840.114 350.1.13.10 4.2.7.2.686 [id number] [facility] 2020-11-07 00:00:00 2020-11-07 00:00:00 Orders Only Doctor Unassigned, [place] [facility] 1.2840.114 350.1.13.10 4.2.7.2.686 [id number] [facility] 2020-11-06 08:45:00 2020-11-06 08:45:00 Outpatient R JASMYNE PARIKH [facility] [id number] [facility] 2020-11-03 00:00:00 2020-11-03 00:00:00 Telephone Isreal Logan [facility] Office Building One 1.2.840.114 350.1.13.10 4.2.7.2.686 [id number] 044 [id number] [facility] 2020-11-02 10:44:38 2020-11-02 12:04:09 Office Visit Isreal Logan [facility] Office Building One 1.2.840.114 350.1.13.10 4.2.7.2.686 [id number] 044 [id number] [facility] 2020-11-02 11:40:34 2020-11-02 12:00:34 Windsmith Visit Lab, Adc Fam Pob I Isreal Logan [facility] Office Building One 1.2.840.114 350.1.13.10 4.2.7.2.686 [id number] 044 [id number] [facility] 2020-11-02 10:45:00 2020-11-02 10:45:00 Outpatient R ISREAL LOGAN [facility] [id number] [facility] 2020-10-26 12:56:19 2020-10-26 13:50:38 Office Visit Jasmyne Parikh [facility] Building 1.2.840.114 350.1.13.10 4.2.7.2.686 [id number] [facility] 2020-10-26 13:00:00 2020-10-26 13:00:00 Outpatient R JASMYNE PARIKH [facility] [id number] [facility] 2020-10-26 00:00:00 2020-10-26 00:00:00 Prep For Surgery Brenda Raphael [facility] Building 1.0.114 350.1.13.10 4.2.7.2.686 [id number] [facility] 2020-09-28 13:52:52 2020-09-28 14:52:50 Office Visit Gian Appiah [facility] Office Building One 1.0.114 350.1.13.10 4.2.7.2.686 [id number] 044 [id number] [facility] 2020-09-28 14:00:00 2020-09-28 14:00:00 Outpatient R GIAN APPIAH [facility] [id number] [facility] 2020-08-25 00:00:00 2020-08-25 00:00:00 Telephone FajardoIsreal delarosa [facility] Office Building One 1.114 350.1.13.10 4.2.7.2.686 [id number] 044 [id number] [facility] 2020-08-24 00:00:00 2020-08-24 00:00:00 Refill FajardoIsreal delarosa [facility] Office Building One 1..114 350.1.13.10 4.2.7.2.686 [id number] 044 [id number] [facility] 2020-08-14 15:30:22 2020-08-14 23:59:00 Hospital Encounter Gian Appiah [facility] 1.840.114 350.1.13.10 4.2.7.2.686 [id number] [facility] 2020-08-14 14:50:07 2020-08-14 15:10:07 Urgent Care Provider, [facility] Urgent Care Gian Appiah [facility] Office Building One 1.0.114 350.1.13.10 4.2.7.2.686 [id number] [id number] [facility] 2020-08-14 15:00:00 2020-08-14 15:00:00 Outpatient R [facility] [id number] [facility] 2020-08-14 00:00:00 2020-08-14 00:00:00 Orders Only Doctor Unassigned, [place] [facility] 1.114 350.1.13.10 4.2.7.2.686 [id number] [facility] 2020-08-04 00:00:00 2020-08-04 00:00:00 Telephone Naomie Solis do [facility] 1.114 350.1.13.10 4.2.7.2.686 [id number] [facility] 2020-07-21 08:15:00 2020-07-21 08:15:00 Outpatient R NAOMIE SOLIS DO [facility] [id number] [facility] 2020-07-21 07:55:44 2020-07-21 08:10:44 Windsmith Visit Bella, [facility] Main Naomie Solis do [facility] 1.114 350.1.13.10 4.2.7.2.686 [id number] [facility] 2020-07-20 07:52:35 2020-07-20 09:06:31 Office Visit Naomie Solis do, Muhammad A [facility] .114 350.1.13.10 4.2.7.2.686 [id number] [facility] 2020-07-20 08:00:00 2020-07-20 08:00:00 Outpatient R KATARZYNA MORFIN [facility] [id number] [facility] 2020-07-20 00:00:00 2020-07-20 00:00:00 Letter (Out) Doctor Unassigned, [place] [facility] 1.114 350.1.13.10 4.2.7.2.686 [id number] 044 [id number] [facility] 2020-07-18 00:00:00 2020-07-18 00:00:00 Telephone [facility] 1.114 350.1.13.10 4.2.7.2.686 [id number] [facility] 2020-07-17 11:36:23 2020-07-17 11:51:23 Windsmith Visit Pob, [facility] 1.114 350.1.13.10 4.2.7.2.686 [id number] [facility] 2020-07-17 11:45:00 2020-07-17 11:45:00 Outpatient R [facility] [id number] [facility] 2020-07-10 00:00:00 2020-07-10 00:00:00 Telephone [facility] 1.114 350.1.13.10 4.2.7.2.686 [id number] [facility] 2020-06-05 09:00:00 2020-06-05 09:00:00 Outpatient R [facility] [id number] [facility] 2020-06-05 00:00:00 2020-06-05 00:00:00 Refill Naomie Solis do [facility] MULTISPEC [facility] 1.114 350.1.13.10 4.2.7.2.686 [id number] [facility] 2020-06-01 10:00:14 2020-06-01 11:11:07 Office Visit Naomie Solis do, Muhammad A [facility] MULTISPEC [facility] 1.114 350.1.13.10 4.2.7.2.686 [id number] [facility] 2020-06-01 10:00:00 2020-06-01 10:00:00 Outpatient R KATARZYNA MORFIN [facility] [id number] [facility] 2020-06-01 08:48:48 2020-06-01 09:03:48 Windsmith Visit Vtc-Lab [facility]zyna [facility]fin [facility] [place] [facility] 1.114 350..13.10 4.2.7.2.686 [id number] [facility] 2020-05-29 13:30:00 2020-05-29 13:30:00 Outpatient R [facility] [id number] [facility] 2020-05-22 15:54:31 2020-05-22 16:54:31 Windsmith Visit , Adc Vascular [facility] 1.840.114 350.1.13.10 4.2.7.2.686 [id number] [facility] 2020-05-22 16:00:00 2020-05-22 16:00:00 Outpatient R [facility] [id number] [facility] 2020-05-12 00:00:00 2020-05-12 00:00:00 [facility] 1.840.114 350.1.13.10 4.2.7.2.686 [id number] [facility] 2020-05-09 15:36:13 2020-05-09 16:14:31 Office Visit Tomeka Reed [facility] Building 1.840.114 350.1.13.10 4.2.7.2.686 [id number] [facility] 2020-05-09 16:00:00 2020-05-09 16:00:00 Outpatient R ANGELES REEDTRE [facility] [id number] [facility] 2020-05-04 12:00:00 2020-05-04 12:00:00 Outpatient R RHEA SHEEHAN [facility] [id number] [facility] 2020-05-01 14:58:17 2020-05-01 16:21:19 Office Visit Isreal Logan [facility] Office Building One 1.840.114 350.1.13.10 4.2.7.2.686 [id number] [facility] 2020-05-01 15:50:40 2020-05-01 16:10:40 Windsmith Visit Lab, [facility] Pob I Isreal Logan [facility] Office Building One 1.840.114 350.1.13.10 4.2.7.2.686 [id number] [facility] 2020-05-01 15:00:00 2020-05-01 15:00:00 Outpatient R ISREAL LOGAN [facility] [id number] [facility] 2020-04-22 00:00:00 2020-04-22 00:00:00 Telephone Brenda Raphael [facility] Building 1..840.114 350.1.13.10 4.2.7.2.686 [id number] [facility] 2020-04-19 13:49:11 2020-04-19 14:35:45 Office Visit AmishaBrenda [facility] Building 1.114 350.1.13.10 4.2.7.2.686 [id number] [facility] 2020-04-19 14:00:00 2020-04-19 14:00:00 Outpatient R BRENDA RAPHAEL [facility] [id number] [facility] 2020-04-18 00:00:00 2020-04-18 00:00:00 Telephone Naomie Solis do [facility] 1.114 350.1.13.10 4.2.7.2.686 [id number] [facility] 2020-04-17 00:00:00 2020-04-17 00:00:00 Transition of Care [facility] 1.114 350.1.13.10 4.2.7.2.686 [id number] [facility] 2020-04-13 08:07:00 2020-04-14 13:15:00 Hospital Encounter Regla Crooks Wei [facility] 1.114 350.1.13.10 4.2.7.2.686 [id number] [facility] 2020-04-13 08:07:00 2020-04-14 13:15:00 Outpatient X MORIS MUÑOZ [facility] AKANKSHA [id number] [facility] 2020-04-13 00:00:00 2020-04-13 00:00:00 Refill Abner Rivera [facility] Office Building One 1.114 350.1.13.10 4.2.7.2.686 [id number] 044 [id number] [facility] 2020-03-16 00:00:00 2020-03-16 00:00:00 Refill Isreal Logan [facility] Office Building One 1.114 350.1.13.10 4.2.7.2.686 [id number] [id number] [facility] 2020-03-12 00:00:00 2020-03-12 00:00:00 Refill Isreal Logan [facility] Building 1.114 350.1.13.10 4.2.7.2.686 [id number] [id number] [facility] 2019-12-01 00:00:00 2019-12-01 00:00:00 Refill Isreal Logan [facility] Office Building One 1..114 350.1.13.10 4.2.7.2.686 [id number] [facility] 2019-11-17 14:40:00 2019-11-17 14:40:00 Outpatient R TOMEKA REED [facility] [id number] [facility] 2019-10-22 15:15:00 2019-10-22 15:15:00 Outpatient R EVER ROTHMAN [facility] [id number] [facility] 2019-10-22 14:59:42 2019-10-22 15:14:42 Office Visit Ever Rothman [facility] Shared Performance [facility] BLD[facility]. 84.114 350.1.13.10 4.2.7.2.686 [id number] [facility] 2019-10-12 00:00:00 2019-10-12 00:00:00 Telephone Isreal Logan [facility] Office Building One 1..114 350.1.13.10 4.2.7.2.686 [id number] [id number] [facility] 2019-10-08 00:00:00 2019-10-08 00:00:00 Telephone Isreal Logan [facility] Office Building One 1.114 350.1.13.10 4.2.7.2.686 [id number] 044 [id number] [facility] 2019-10-06 00:00:00 2019-10-06 00:00:[address] [facility] Building 1.114 350.1.13.10 4.2.7.2.686 [id number] 044 [id number] [facility] 2019-10-06 00:00:00 2019-10-06 00:00:00 Telephone Norma Weber [facility] Office Building One 1. 350.1.13.10 4.2.7.2.686 [id number] 044 [id number] [facility] 2019-10-04 10:26:47 2019-10-04 10:41:47 Windsmith Visit Lab, Adc Fam Pob I Unknown, Attending [facility] Office Building One 1. 350.1.13.10 4.2.7.2.686 [id number] [id number] [facility] 2019-10-04 10:15:00 2019-10-04 10:15:00 Outpatient R UNKNOWN, ATTENDING [facility] [id number] [facility] 2019-09-29 14:15:00 2019-09-29 14:15:00 Outpatient R UJAN FRANCISCO FLORES [facility] [id number] [facility] 2019-09-27 11:21:00 2019-09-27 11:21:00 Outpatient JACKIEU_SHENG_Y ANTONIA [facility] [id number] [facility] 2019-09-21 07:55:28 2019-09-24 10:45:31 Telemedici ne Visit Parminder Rueda do, [facility] 1.2.840.114 350.1.13.10 4.2.7.2.686 [id number] [facility] 2019-09-21 09:00:00 2019-09-21 09:00:00 Outpatient R NAOMIE SOLIS DO [facility] [id number] [facility] 2019-09-21 00:00:00 2019-09-21 00:00:00 Telephone [facility] nal Building 1.840.114 350.1.13.10 4.2.7.2.686 [id number] 044 [id number] [facility] 2019-09-17 09:43:15 2019-09-17 22:48:02 Office Visit Ileana Cates [facility] 1.840.114 350.1.13.10 4.2.7.2.686 [id number] [facility] 2019-09-17 11:22:17 2019-09-17 13:47:54 Windsmith Visit Pcp-Lab Darryn [facility] 1.0.114 350.1.13.10 4.2.7.2.686 [id number] [facility] 2019-09-17 10:00:00 2019-09-17 10:00:00 Outpatient R ILEANA CATES [facility] [id number] [facility] 2019-09-16 00:00:00 2019-09-16 00:00:00 Refill Abner Rivera [facility] Office Building One 1..114 350.1.13.10 4.2.7.2.686 [id number] [id number] [facility] 2019-09-16 00:00:00 2019-09-16 00:00:00 Refill Hermilaolimpia [facility] Office Building One 1..114 350.1.13.10 4.2.7.2.686 [id number] [facility] 2019-09-14 07:56:46 2019-09-14 15:55:43 Telemedici ne Visit Desmond Isreal Nelson [facility] Roxann Delatorre [facility] 1.114 350.1.13.10 4.2.7.2.686 [id number] [facility] 2019-09-14 15:30:00 2019-09-14 15:30:00 Outpatient R DESMOND, ISREAL [facility] [id number] [facility] 2019-09-10 00:00:00 2019-09-10 00:00:00 Transition of Care Luh Mak [place] 1.114 350.1.13.10 4.2.7.2.686 [id number] [facility] [id number] [facility] 2019-09-07 06:51:10 2019-09-09 15:37:00 Hospital Encounter Anthony Mcnamara Gina P Armstrong, Robin [facility] 1.114 350.1.13.10 4.2.7.2.686 [id number] [facility] 2019-09-07 06:51:10 2019-09-09 15:37:00 Inpatient X KHURRAM SNOW [facility] [id number] [facility] 2019-09-09 00:00:00 2019-09-09 00:00:00 Telephone Naomie Solis do [facility] MULTISPEC [facility] 1.114 350.1.13.10 4.2.7.2.686 [id number] [facility] 2019-09-07 00:00:00 2019-09-07 00:00:00 Orders Only Doctor Unassigned, [place] [facility] 1..114 350.1.13.10 4.2.7.2.686 [id number] [facility] 2019-08-31 00:00:00 2019-08-31 00:00:00 Transition of Care Yuki Ortiz 1.2.840.114 350.1.13.10 4.2.7.2.686 [id number] [facility] 2019-08-30 08:15:00 2019-08-30 08:15:00 Outpatient R ISREAL LOGAN [facility] [id number] [facility] 2019-08-30 07:05:23 2019-08-30 07:20:23 Telemedici ne Visit Isreal Logan [facility] 1.2.840.114 350.1.13.10 4.2.7.2.686 [id number] [facility] 2019-08-27 13:15:53 2019-08-28 18:40:00 Emergency Cristian Garcia Wei [facility] 1.2.840.114 350.1.13.10 4.2.7.2.686 [id number] [facility] 2019-08-27 13:15:53 2019-08-28 18:40:00 Outpatient X MORIS MUÑOZ [facility] [id number] [facility] 2019-08-27 00:00:00 2019-08-27 00:00:00 Telephone Abner Rivera [facility] 1.2.840.114 350.1.13.10 4.2.7.2.686 [id number] [facility] 2019-08-27 00:00:00 2019-08-27 00:00:00 Orders Only Doctor Unassigned, [place] [facility] 1.2.840.114 350.1.13.10 4.2.7.2.686 [id number] [facility] 2019-08-25 08:54:41 2019-08-25 10:07:31 Urgent Care Paulo Brown Pob1, Acute Care Clinic 1.2.840.1 35875.1.1 3.104.2.7 .3.241402 .8 [id number] [facility] 2019-08-25 09:00:00 2019-08-25 09:00:00 Outpatient R PAULO BROWN [facility] [id number] [facility] 2019-08-25 00:00:00 2019-08-25 00:00:00 Travel 1.2.840.1 39328.1.1 3.104.2.7 .3.700294 .8 1.2.840.114 350.1.13.10 4.2.7.3.698 [id number] [facility] 2019-08-19 07:17:45 2019-08-19 10:01:19 Telemedici ne Visit Isreal Logan 1.2.840.1 07349.1.1 3.104.2.7 .3.122206 .8 [id number] [facility] 2019-08-19 09:15:00 2019-08-19 09:15:00 Outpatient R ISREAL LOGAN [facility] [id number] [facility] 2019-08-16 00:00:00 2019-08-16 00:00:00 Telephone Paulo Brown 1.2.840.1 36260.1.1 3.104.2.7 .3.601570 .8 [id number] [facility] 2019-08-16 00:00:00 2019-08-16 00:00:00 Nurse Triage Mookie Bhagat 1.2.840.1 21715.1.1 3.104.2.7 .3.052374 .8 [id number] [facility] 2019-08-14 00:00:00 2019-08-14 00:00:00 Telephone Karolina, Mariah P 1.2.840.1 09474.1.1 3.104.2.7 .3.546453 .8 [id number] [facility] 2019-08-14 00:00:00 2019-08-14 00:00:00 Telephone Isreal Logan A 1.2.840.1 37913.1.1 3.104.2.7 .3.809262 .8 [id number] [facility] 2019-08-13 14:03:21 2019-08-13 23:59:00 Outpatient R PAULO BROWN [facility] RAD [id number] [facility] 2019-08-13 14:03:00 2019-08-13 23:59:00 Hospital Encounter Paulo Brown 1.2.840.1 80887.1.1 3.104.2.7 .3.092652 .8 [id number] [facility] 2019-08-13 12:51:53 2019-08-13 14:24:15 Urgent Care Breonna Bautista [facility], Acute Care Clinic 1.2.840.1 97518.1.1 3.104.2.7 .3.443584 .8 [id number] [facility] 2019-08-13 09:25:40 2019-08-13 10:46:38 Telemedici ne Visit Breonna Bautista Care, Provider 27 - Adult & Pedi Urgent 1.2.840.1 33460.1.1 3.104.2.7 .3.641179 .8 [id number] [facility] 2019-08-13 00:00:00 2019-08-13 00:00:00 Telephone Pcp, Patient Does Not Have A 1.2.840.1 52578.1.1 3.104.2.7 .3.807292 .8 [id number] [facility] 2019-08-13 00:00:00 2019-08-13 00:00:00 Telephone Erin Madera 1.2.840.1 93397.1.1 3.104.2.7 .3.271226 .8 [id number] [facility] 2019-07-27 08:28:05 2019-07-27 09:25:36 Office Visit Ever Rothman 1.2.840.1 91431.1.1 3.104.2.7 .3.397378 .8 [id number] [facility] 2019-07-27 08:45:00 2019-07-27 08:45:00 Outpatient R NICKI EVER [facility] [id number] [facility] 2019-07-26 14:00:00 2019-07-26 14:00:00 Outpatient R NICKI EVER [facility] [id number] [facility] 2019-07-16 09:17:13 2019-07-16 09:32:13 Windsmith Visit Katarzyna Morfin, [facility] Main 1..840.1 03409.1.1 3.104.2.7 .3.220278 .8 [id number] [facility] 2019-07-16 09:15:00 2019-07-16 09:15:00 Outpatient R KATARZYNA MORFIN [facility] [id number] [facility] 2019-07-16 00:00:00 2019-07-16 00:00:00 Orders Only Doctor Unassigned, [place] 1.2.840.1 98709.1.1 3.104.2.7 .3.111209 .8 [id number] [facility] 2019-06-24 00:00:00 2019-06-24 00:00:00 RefIsreal Burnett 1.2.840.1 78243.1.1 3.104.2.7 .3.441656 .8 [id number] [facility] 2019-06-14 08:00:00 2019-06-14 09:39:14 Outpatient R NAOMIE SOLIS DO [facility] [id number] [facility] 2019-06-14 07:42:14 2019-06-14 09:39:14 Office Visit Naomie Solis do 1.2.840.1 00207.1.1 3.104.2.7 .3.954074 .8 [id number] [facility] 2019-06-13 00:00:00 2019-06-13 00:00:00 Refill Isreal Logan A 1.2.840.1 34069.1.1 3.104.2.7 .3.018609 .8 [id number] [facility] 2019-06-08 00:00:00 2019-06-08 00:00:00 Case Management Isreal Logan 1.2.840.1 68241.1.1 3.104.2.7 .3.680443 .8 [id number] [facility] 2019-06-07 00:00:00 2019-06-07 00:00:00 Telephone Isreal Logan 1.2.840.1 64170.1.1 3.104.2.7 .3.407925 .8 [id number] [facility] 2019-06-03 00:00:00 2019-06-03 00:00:00 Case Management Isreal Logan 1.2.840.1 61437.1.1 3.104.2.7 .3.263976 .8 [id number] [facility] 2019-06-01 10:51:00 2019-06-01 23:59:00 Hospital Encounter Isreal Logan 1.2.840.1 25783.1.1 3.104.2.7 .3.113973 .8 [id number] [facility] 2019-05-31 09:02:58 2019-05-31 09:17:58 Windsmith Visit Isreal Logan, Adc Lab Main 1.2840.1 24487.1.1 3.104.2.7 .3.058824 .8 [id number] [facility] 2019-05-31 07:56:06 2019-05-31 08:42:37 Office Visit Isreal Logan 1.2.840.1 59921.1.1 3.104.2.7 .3.521381 .8 [id number] [facility] 2019-05-21 00:00:00 2019-05-21 00:00:00 Refill Isreal Logan [facility] Office Building One 1.2.840.114 350.1.13.10 4.2.7.2.686 [id number] [facility] 2019-05-14 08:40:42 2019-05-14 11:31:55 Ancillary Visit Olya Powers [facility] Building 1.2.840.114 350.1.13.10 4.2.7.2.686 [id number] [facility] 2019-05-13 14:46:00 2019-05-13 23:59:00 Hospital Encounter Zari Ruiz [facility] 1.2.840.114 350.1.13.10 4.2.7.2.686 [id number] [facility] 2019-05-13 00:00:00 2019-05-13 00:00:00 Orders Only Doctor Unassigned, [place] [facility] 1.2.840.114 350.1.13.10 4.2.7.2.686 [id number] [facility] 2019-05-07 10:30:00 2019-05-07 11:32:31 Outpatient R ZARI RUIZ [facility] [id number] [facility] 2019-04-30 10:52:18 2019-04-30 23:59:00 Outpatient R ISREAL LOGAN [facility] [id number] [facility] 2019-04-12 14:32:54 2019-04-12 23:59:00 Outpatient R ISREAL LOGAN [facility] [id number] [facility] 2018-12-31 00:00:00 2018-12-31 00:00:00 Letter (Out) Angelita Leavitt [facility] 1.2.840.114 350.1.13.10 4.2.7.2.686 [id number] [facility] 2018-12-25 16:37:53 2018-12-25 16:52:53 [facility] Visit 1, [facility] Isreal Logan [facility] 1.2.840.114 350.1.13.10 4.2.7.2.686 [id number] [facility] 2018-12-25 15:36:08 2018-12-25 16:25:20 Office Visit Isreal Logan [facility] Office Building One 1.2.840.114 350.1.13.10 4.2.7.2.686 [id number] [facility] 2018-12-25 00:00:00 2018-12-25 00:00:00 Orders Only Doctor Unassigned, [place] [facility] 1.2.840.114 350.1.13.10 4.2.7.2.686 [id number] [facility] 2018-11-16 00:00:00 2018-11-16 00:00:00 Orders Only Doctor Unassigned, [place] [facility] 1.2.840.114 350.1.13.10 4.2.7.2.686 [id number] [facility] Results Test Description Test Time Test Comments Results Result Co mments Source [facility], [id number] 14:19:47* Test Item Value Reference Range Interpretation Comme nts FK 506 (test code = 6831377312) 3 ng/mL MARLENE (test code = MARLENE) Target/Therapeutic Range KIDNEY ? Early (<3 mo) ? ? [...] ?(>12 mo) ? ?8-10 Method by: ?Chemiflex, Patient Day Coordinator i1000 [facility] GLUCOSE (AUTOMATED)2023-07-17 13:44:59* Test Item Value Reference Range Interpretation Comme nts POCT GLU (test code = 6447982792) 283 mg/dL 70-110 H Lab Interpretation (test cod e = 86478-5) Abnormal [facility] GLUCOSE (AUTOMATED)2023-07-17 08:26:29* Test Item Value Reference Range Interpretation Comme nts POCT GLU (test code = 8458697452) 124 mg/dL 70-110 H Lab Interpretation (test cod e = 82020-3) Abnormal [facility] GLUCOSE (AUTOMATED)2023-07-17 04:14:10* Test Item Value Reference Range Interpretation Comme nts POCT GLU (test code = 6661893827) 121 mg/dL 70-110 H Lab Interpretation (test cod e = 03721-0) Abnormal [facility] GLUCOSE (AUTOMATED)2023-07-17 01:25:34* Test Item Value Reference Range Interpretation Comme nts POCT GLU (test code = 8111708140) 128 mg/dL 70-110 H Lab Interpretation (test cod e = 55358-1) Abnormal [facility] GLUCOSE (AUTOMATED)2023-07-16 22:12:39* Test Item Value Reference Range Interpretation Comme nts POCT GLU (test code = 2880476218) 139 mg/dL 70-110 H Lab Interpretation (test cod e = 92055-0) Abnormal [facility] GLUCOSE (AUTOMATED)2023-07-16 16:39:56* Test Item Value Reference Range Interpretation Comme nts POCT GLU (test code = 0772105641) 160 mg/dL 70-110 H Lab Interpretation (test cod e = 13853-1) Abnormal [facility] GLUCOSE (AUTOMATED)2023-07-16 12:34:13* Test Item Value Reference Range Interpretation Comme nts POCT GLU (test code = 6172121607) 143 mg/dL 70-110 H Lab Interpretation (test cod e = 64565-0) [facility]2023-07-16 08:31:41* Test Item Value Reference Range Interpretation Comme nts POCT GLU (test code = 0136718129) 137 mg/dL 70-110 H Lab Interpretation (test cod e = 87816-6) Abnormal [facility] GLUCOSE (AUTOMATED)2023-07-16 04:16:32* Test Item Value Reference Range Interpretation Comme nts POCT GLU (test code = 1100748849) 124 mg/dL 70-110 H Lab Interpretation (test cod e = 77968-9) Abnormal [facility]X+NA+K+GLU+CA2+2023-07-16 04:16:22* Test Item Value Reference Range Interpretation Comme nts PH (test code = 2) 7.32 7.35-7.45 L PCO2 (test code = 9969053526) 37 35-45 PO2 (test code = 1107344905) 109 80-100 H HCO3 (test code = 4994220639) 19 22-26 L BE (test code = 0004838397) -6.9 -3.0-3.0 L THB (test code = 3069607946) 8.2 g/dL 13.5-18.0 LL %O2HB (test code = 4166226534) 96.7 % 94.0-99.0 %COHB ART (test code = 5981104908) 0.6 % 0.0-1.5 %METHB ART (test code = 2141111290) 0.5 % 0.4-1.5 VOL%O2 ART (test code = 3707838322) 11.4 % 15.0-23.0 L QUES NA (test code = 2445387714) 131 mmol/L 135-145 L K+ (test code = 4180307197) 5.4 mmol/L 3.5-5.0 H AC CA IONZ (test code = 3772358202) 5.60 mg/dL 4.50-5.30 H GLUCOSE (test code = 6184695647) 160 mg/dL 70-110 H Lab Interpretation (test cod e = 76371-6) Abnormal [facility]+NA+K+GLU+CA2+2023-07-16 04:15:02* Test Item Value Reference Range Interpretation Comme nts PH (test code = 2) 7.35 7.35-7.45 PCO2 (test code = 4419834193) 39 35-45 PO2 (test code = 3709464801) 113 80-100 H HCO3 (test code = 6508638835) 21 22-26 L BE (test code = 5778011218) -4.2 -3.0-3.0 L THB (test code = 8675548656) 9.2 g/dL 13.5-18.0 L %O2HB (test code = 8240621190) 97.3 % 94.0-99.0 %COHB ART (test code = 2652877248) 0.5 % 0.0-1.5 %METHB ART (test code = 0655004149) 0.4 % 0.4-1.5 VOL%O2 ART (test code = 9691488119) 12.8 % 15.0-23.0 L QUES NA (test code = 5474046341) 132 mmol/L 135-145 L K+ (test code = 8674156399) 5.3 mmol/L 3.5-5.0 H AC CA IONZ (test code = 7322080344) 5.00 mg/dL 4.50-5.30 GLUCOSE (test code = 9013075160) 173 mg/dL 70-110 H Lab Interpretation (test cod e = 05986-4) Abnormal [facility] GLUCOSE (AUTOMATED)2023-07-15 21:19:06* Test Item Value Reference Range Interpretation Comme nts POCT GLU (test code = 8879489731) 148 mg/dL 70-110 H Lab Interpretation (test cod e = 08192-4) Abnormal [facility] GLUCOSE (AUTOMATED)2023-07-15 16:51:52* Test Item Value Reference Range Interpretation Comme nts POCT GLU (test code = 6278022142) 120 mg/dL 70-110 H Lab Interpretation (test cod e = 53950-6) Abnormal [facility] GLUCOSE (AUTOMATED)2023-07-15 12:40:22* Test Item Value Reference Range Interpretation Comme nts POCT GLU (test code = 5223500557) 118 mg/dL 70-110 H Lab Interpretation (test cod e = 41932-8) Abnormal [facility] GLUCOSE (AUTOMATED)2023-07-15 09:40:41* Test Item Value Reference Range Interpretation Comme nts POCT GLU (test code = 0688640643) 116 mg/dL 70-110 H Lab Interpretation (test cod e = 59449-8) Abnormal [facility] GLUCOSE (AUTOMATED)2023-07-15 05:19:36* Test Item Value Reference Range Interpretation Comme nts POCT GLU (test code = 9817901918) 134 mg/dL 70-110 H Lab Interpretation (test cod e = 69393-7) Abnormal [facility] GLUCOSE (AUTOMATED)2023-07-15 02:23:31* Test Item Value Reference Range Interpretation Comme nts POCT GLU (test code = 4371023945) 144 mg/dL 70-110 H Lab Interpretation (test cod e = 70313-3) Abnormal [facility]+NA+K+GLU+CA2+2023-07-15 01:48:24* Test Item Value Reference Range Interpretation Comme nts PH (test code = 2) 7.40 7.35-7.45 PCO2 (test code = 2852492628) 32 35-45 L PO2 (test code = 2876276621) 463 80-100 H HCO3 (test code = 5377039149) 19 22-26 L BE (test code = 2531583214) -5.2 -3.0-3.0 L THB (test code = 8642256200) 7.4 g/dL 13.5-18.0 LL %O2HB (test code = 7637870173) 98.3 % 94.0-99.0 %COHB ART (test code = 9156832875) 0.6 % 0.0-1.5 %METHB ART (test code = 1765588252) 0.7 % 0.4-1.5 VOL%O2 ART (test code = 0583885289) 11.6 % 15.0-23.0 L QUES NA (test code = 6809697906) 132 mmol/L 135-145 L K+ (test code = 7004358399) 4.9 mmol/L 3.5-5.0 AC CA IONZ (test code = 3888315492) 4.70 mg/dL 4.50-5.30 GLUCOSE (test code = 8842751720) 204 mg/dL 70-110 H Lab Interpretation (test cod e = 72257-8) Abnormal [facility] GLUCOSE (AUTOMATED)2023-07-14 21:03:15* Test Item Value Reference Range Interpretation Comme nts POCT GLU (test code = 4595447990) 111 mg/dL 70-110 H Notified Provide r Lab Interpretation (test code = 34110-3) Abnormal [facility] GLUCOSE (AUTOMATED)2023-07-14 16:46:08* Test Item Value Reference Range Interpretation Comme nts POCT GLU (test code = 0305779079) 136 mg/dL 70-110 H Notified Provide r Lab Interpretation (test code = 75244-0) Abnormal [facility] GLUCOSE (AUTOMATED)2023-07-14 12:35:49* Test Item Value Reference Range Interpretation Comme nts POCT GLU (test code = 9935302767) 101 mg/dL 70-110 Notified Provide r Lab Interpretation (test code = 02317-2) Normal [facility] GLUCOSE (AUTOMATED)2023-07-14 09:31:13* Test Item Value Reference Range Interpretation Comme nts POCT GLU (test code = 0358264492) 118 mg/dL 70-110 H Notified Provide r Lab Interpretation (test code = 36923-9) Abnormal [facility] GLUCOSE (AUTOMATED)2023-07-14 05:06:14* Test Item Value Reference Range Interpretation Comme nts POCT GLU (test code = 7224699376) 118 mg/dL 70-110 H Notified Provide r Lab Interpretation (test code = 23823-9) Abnormal [facility] GLUCOSE (AUTOMATED)2023-07-14 02:38:00* Test Item Value Reference Range Interpretation Comme nts POCT GLU (test code = 4744205933) 124 mg/dL 70-110 H Notified Provide r Lab Interpretation (test code = 40075-7) Abnormal [facility] GLUCOSE (AUTOMATED)2023-07-13 20:42:13* Test Item Value Reference Range Interpretation Comme nts POCT GLU (test code = 8470380666) 158 mg/dL 70-110 H Notified Provide r Lab Interpretation (test code = 61533-4) Abnormal [facility] GLUCOSE (AUTOMATED)2023-07-13 16:58:06* Test Item Value Reference Range Interpretation Comme nts POCT GLU (test code = 1677845647) 129 mg/dL 70-110 H Notified Provide r Lab Interpretation (test code = 57176-8) Abnormal [facility] 2 Views - Upright ( PA, LAT) on POD # 3 2023-07-13 14:27:16EXAM: XR CHEST 2 VW COMPARISON: Chest radiograph 07/09/2019 HISTORY: s/p open heart surgery FINDINGS: Lungs: Bilateral lower lung airspace opacities are noted. Small left andmoderate right pleural effusions. Heart/Mediastinum: The cardiomediastinal silhouette is enlarged in size.Calcified aorta. Post CABG .Mild fullness of the superior mediastinumlikely associated with the recent procedure/prominent vascular pedicle. Bones and soft tissues: Sternotomy wires in satisfactory alignment.[facility] GLUCOSE (AUTOMATED)2023-07-13 13:07:47* Test Item Value Reference Range Interpretation Comme nts POCT GLU (test code = 5458521708) 120 mg/dL 70-110 H Notified Provide r Lab Interpretation (test code = 59366-7) Abnormal [facility] GLUCOSE (AUTOMATED)2023-07-13 08:12:33* Test Item Value Reference Range Interpretation Comme nts POCT GLU (test code = 1559469411) 118 mg/dL 70-110 H Lab Interpretation (test cod e = 75506-7) Abnormal [facility] GLUCOSE (AUTOMATED)2023-07-13 04:12:27* Test Item Value Reference Range Interpretation Comme nts POCT GLU (test code = 1851413484) 142 mg/dL 70-110 H Lab Interpretation (test cod e = 64098-2) Abnormal [facility] GLUCOSE (AUTOMATED)2023-07-13 00:36:22* Test Item Value Reference Range Interpretation Comme nts POCT GLU (test code = 9016012820) 158 mg/dL 70-110 H Lab Interpretation (test cod e = 73933-3) Abnormal [facility] GLUCOSE (AUTOMATED)2023-07-12 21:31:45* Test Item Value Reference Range Interpretation Comme nts POCT GLU (test code = 6938221082) 219 mg/dL 70-110 H Lab Interpretation (test cod e = 29212-2) Abnormal [facility] GLUCOSE (AUTOMATED)2023-07-12 16:50:05* Test Item Value Reference Range Interpretation Comme nts POCT GLU (test code = 0858929343) 132 mg/dL 70-110 H Lab Interpretation (test cod e = 81359-9) Abnormal [facility], Klfqi8037-33-75 15:22:20* Test Item Value Reference Range Interpretation Comme nts FK 506 (test code = 5967739236) 3 ng/mL MARLENE (test code = MARLENE) Target/Therapeutic Range KIDNEY ? Early (<3 mo) ? ? [...] ?(>12 mo) ? ?8-10 Method by: ?Chemiflex, Patient Day Coordinator i1000 [facility]2023-07-12 12:51:54* Test Item Value Reference Range Interpretation Comme nts POCT GLU (test code = 9522745523) 115 mg/dL 70-110 H Lab Interpretation (test cod e = 13312-9) Abnormal [facility] Met[facility] Panel (NA, K, CL, CO2, GLUCOSE, BUN, CREATININE, CA) on POD # 11:12:50* Test Item Value Reference Range Interpretation Comme nts NA (test code = 5785394038) 139 mmol/L 135-145 K (test code = 2240148828) 4.8 mmol/L 3.5-5.0 CL (test code = 8590815205) 114 mmol/L 98-108 H CO2 TOTAL (test code = 8275990979) 19 mmol/L 23-31 L AGAP (test code = 2416257047) 6 2-16 BUN (test code = 6814991487) 33 mg/dL 7-23 H GLUCOSE (test code = 7342380121) 114 mg/dL 70-110 H CREATININE (test code = 2160-0) 1.53 mg/dL 0.60-1.25 H CALCIUM (test code = 1552099987) 9.2 mg/dL 8.6-10.6 eGFR (test code = 12173-9) 49.5 mL/min/1.73m2 CKD-EPI eGFR (2020). Assuming creatinine has been stable day-to-day for at least three months, the eGFR indicates Category G3a (45 - 59 mL/min/1.73 m2) Lab Interpretation (test code = 70849-2) Abnormal [facility] with Differential on POD # 10:41:56* Test Item Value Reference Range Interpretation Comme nts WBC (test code = 6690-2) 8.26 4.20-10.70 RBC (test code = 789-8) 2.51 4.26-5.52 L HGB (test code = 718-7) 7.7 g/dL 12.2-16.4 L HCT (test code = 4544-3) 22.7 % 38.4-49.3 L MCV (test code = 787-2) 90.4 fL 81.7-95.6 MCH (test code = 785-6) 30.7 pg 26.1-32.7 MCHC (test code = 786-4) 33.9 g/dL 31.2-35.0 RDW-SD (test code = 01121-1) 55.2 fL 38.5-51.6 H RDW-CV (test code = 788-0) 16.8 % 12.1-15.4 H PLT (test code = 777-3) 139 150-328 L MPV (test code = 39013-6) 11.3 fL 9.8-13.0 IPF % (test code = 0005575784) 4.4 % 1.2-10.7 Platelet count measured by fluorescence method. NRBC/100 WBC (test code = 5638519459) 1.3 0.0-10.0 NRBC x10^3 (test code = 2874390220) 0.11 See_Comment [Automated [employer]] The system which generated this result transmitted reference range: 10*3/?L. The reference range was not used to interpret this result as normal/abnormal. GRAN MAT (NEUT) % (test code = 770-8) 74.1 % IMM GRAN % (test code = 0657654534) 1.10 % LYMPH % (test code = 736-9) 9.4 % MONO % (test code = 5905-5) 13.2 % EOS % (test code = 713-8) 1.7 % BASO % (test code = 706-2) 0.5 % GRAN MAT x10^3(ANC) (test code = 1372517698) 6.12 10*3/uL 1.99-6.95 IMM GRAN x10^3 (test code = 5226133997) 0.09 10*3/uL 0.00-0.06 H LYMPH x10^3 (test code = 731-0) 0.78 10*3/uL 1.09-3.23 L MONO x10^3 (test code = 742-7) 1.09 10*3/uL 0.36-1.02 H EOS x10^3 (test code = 711-2) 0.14 10*3/uL 0.06-0.53 BASO x10^3 (test code = 704-7) 0.04 10*3/uL 0.01-0.09 Lab Interpretation (test code = 84817-9) Abnormal [facility] GLUCOSE (AUTOMATED)2023-07-12 09:56:57* Test Item Value Reference Range Interpretation Comme nts POCT GLU (test code = 6074388115) 128 mg/dL 70-110 H Lab Interpretation (test cod e = 00899-4) Abnormal [facility] GLUCOSE (AUTOMATED)2023-07-12 05:12:19* Test Item Value Reference Range Interpretation Comme nts POCT GLU (test code = 0653950168) 127 mg/dL 70-110 H Lab Interpretation (test cod e = 70752-2) Abnormal [facility] GLUCOSE (AUTOMATED)2023-07-12 01:41:12* Test Item Value Reference Range Interpretation Comme nts POCT GLU (test code = 8282344088) 150 mg/dL 70-110 H Lab Interpretation (test cod e = 30431-1) Abnormal [facility] Metabolic Panel (NA, K, CL, CO2, GLUCOSE, BUN, CREATININE, CA)2023-07-12 00:28:31* Test Item Value Reference Range Interpretation Comme nts NA (test code = 5996966786) 136 mmol/L 135-145 K (test code = 5673928171) 4.4 mmol/L 3.5-5.0 CL (test code = 1713768971) 114 mmol/L 98-108 H CO2 TOTAL (test code = 8681351291) 21 mmol/L 23-31 L AGAP (test code = 2496871785) 1 2-16 L BUN (test code = 1956194449) 33 mg/dL 7-23 H GLUCOSE (test code = 1145877691) 113 mg/dL 70-110 H CREATININE (test code = 2160-0) 1.50 mg/dL 0.60-1.25 H CALCIUM (test code = 7785060686) 8.7 mg/dL 8.6-10.6 eGFR (test code = 63131-0) 50.7 mL/min/1.73m2 CKD-EPI eGFR (2020). Assuming creatinine has been stable day-to-day for at least three months, the eGFR indicates Category G3a (45 - 59 mL/min/1.73 m2) Lab Interpretation (test code = 75245-5) [facility]* Test Item Value Reference Range Interpretation Comme nts MAGNESIUM (test code = 5443516302) 2.0 mg/dL 1.7-2.4 Lab Interpretation (test cod e = 59783-6) Normal [facility] GLUCOSE (AUTOMATED)2023-07-11 21:19:15* Test Item Value Reference Range Interpretation Comme nts POCT GLU (test code = 5616446230) 136 mg/dL 70-110 H Lab Interpretation (test cod e = 22541-5) Abnormal [facility] GLUCOSE (AUTOMATED)2023-07-11 20:39:17* Test Item Value Reference Range Interpretation Comme nts POCT GLU (test code = 1504779605) 150 mg/dL 70-110 H Notified Provide r Lab Interpretation (test code = 76834-8) Abnormal [facility] GLUCOSE (AUTOMATED)2023-07-11 18:11:36* Test Item Value Reference Range Interpretation Comme nts POCT GLU (test code = 0773578594) 143 mg/dL 70-110 H Lab Interpretation (test cod e = 40826-8) Abnormal [facility] with Qxal4319-36-97 17:03:12* Test Item Value Reference Range Interpretation Comme nts WBC (test code = 6690-2) 9.26 4.20-10.70 RBC (test code = 789-8) 2.40 4.26-5.52 L HGB (test code = 718-7) 7.3 g/dL 12.2-16.4 L HCT (test code = 4544-3) 22.2 % 38.4-49.3 L MCV (test code = 787-2) 92.5 fL 81.7-95.6 MCH (test code = 785-6) 30.4 pg 26.1-32.7 MCHC (test code = 786-4) 32.9 g/dL 31.2-35.0 RDW-SD (test code = 75031-6) 55.8 fL 38.5-51.6 H RDW-CV (test code = 788-0) 16.2 % 12.1-15.4 H PLT (test code = 777-3) 104 150-328 L MPV (test code = 57537-4) 11.2 fL 9.8-13.0 IPF % (test code = 5952280534) 4.6 % 1.2-10.7 Platelet count measured by fluorescence method. NRBC/100 WBC (test code = 2200256224) 0.0 0.0-10.0 NRBC x10^3 (test code = 3069493384) See_Comment [Automated messa ge] The system which generated this result transmitted reference range: 10*3/?L. The reference range was not used to interpret this result as normal/abnormal. GRAN MAT (NEUT) % (test code = 770-8) 79.5 % IMM GRAN % (test code = 1567642424) 1.00 % LYMPH % (test code = 736-9) 5.4 % MONO % (test code = 5905-5) 13.5 % EOS % (test code = 713-8) 0.5 % BASO % (test code = 706-2) 0.1 % GRAN MAT x10^3(ANC) (test code = 1800502660) 7.36 10*3/uL 1.99-6.95 H IMM GRAN x10^3 (test code = 3794510613) 0.09 10*3/uL 0.00-0.06 H LYMPH x10^3 (test code = 731-0) 0.50 10*3/uL 1.09-3.23 L MONO x10^3 (test code = 742-7) 1.25 10*3/uL 0.36-1.02 H EOS x10^3 (test code = 711-2) 0.05 10*3/uL 0.06-0.53 L BASO x10^3 (test code = 704-7) 0.01-0.09 Lab Interpretation (test code = 92835-7) Abnormal [facility]ac[facility], Ifnib5015-48-85 14:08:08* Test Item Value Reference Range Interpretation Comme nts FK 506 (test code = 4679822325) 4 ng/mL MARLENE (test code = MARLENE) Target/Therapeutic Range KIDNEY ? Early (<3 mo) ? ? [...] ?(>12 mo) ? ?8-10 Method by: ?Chemiflex, Patient Day Coordinator i1000 [facility] Packed RBC (in units), 1 Units 2023-07-11 14:05:53* Test Item Value Reference Range Interpretation Comme nts Cross Match Result (test code = 4409) Compatible ISBT Blood Type Code (test code = 480162) 7300 Unit Blood Type (test code = 4410) B Pos Unit Number (test code = 4411) [id number] Blood Expiration Date & Time (test code = 375339) [id number] Status Information (test code = 4412) Issued Product Identification (test code = 4413) Red Blood Cells Product Code (test code = 4414) [id number] Performed at [facility] B Laboratory Services - [facility] Blood [address] [address]Pvum Free: [phone] No. [id number] [facility] GLU[facility]SE (AUTOMATED)2023-07-11 13:00:59* Test Item Value Reference Range Interpretation Comme nts POCT GLU (test code = 7624190551) 134 mg/dL 70-110 H Lab Interpretation (test cod e = 15072-0) Abnormal [facility]isco[facility] and Screen - ONCE UHTA2348-24-27 12:14:00 * Test Item Value Reference Range Interpretation Comme nts ABO & RH (test code = 20) B POSITIVE IAT (test code = 1185) Negative [facility] FriscoCbc without Nzzn6880-48-78 11:58:13* Test Item Value Reference Range Interpretation Comme nts WBC (test code = 6690-2) 8.96 4.20-10.70 RBC (test code = 789-8) 2.06 4.26-5.52 L HGB (test code = 718-7) 6.2 g/dL 12.2-16.4 L HCT (test code = 4544-3) 19.0 % 38.4-49.3 L MCH (test code = 785-6) 30.1 pg 26.1-32.7 MCV (test code = 787-2) 92.2 fL 81.7-95.6 MCHC (test code = 786-4) 32.6 g/dL 31.2-35.0 PLT (test code = 777-3) 97 150-328 L MPV (test code = 31352-1) 11.8 fL 9.8-13.0 RDW-CV (test code = 788-0) 17.2 % 12.1-15.4 H RDW-SD (test code = 01335-4) 58.2 fL 38.5-51.6 H NRBC x10^3 (test code = 0785746053) 0.02 See_Comment [Automated messa ge] The system which generated this result transmitted reference range: 10*3/?L. The reference range was not used to interpret this result as normal/abnormal. NRBC/100 WBC (test code = 1622764862) 0.2 0.0-10.0 IPF % (test code = 4730708519) 5.3 % 1.2-10.7 Platelet count measured by fluorescence method. Lab Interpretation (test code = 36320-4) Abnormal [facility] FriscoPhosphorus2024-03-15 11:19:28* Test Item Value Reference Range Interpretation Comme nts PHOSPHORUS (test code = 2852796771) 3.2 mg/dL 2.5-5.0 Lab Interpretation (test cod e = 82595-3) Normal [facility] FriscoMagnesium2024-03-15 11:19:27* Test Item Value Reference Range Interpretation Comme nts MAGNESIUM (test code = 5073571525) 2.3 mg/dL 1.7-2.4 Lab Interpretation (test cod e = 11945-8) Normal [facility] Metabolic Panel (NA, K, CL, CO2, GLUCOSE, BUN, CREATININE, CA)2023-07-11 11:19:27* Test Item Value Reference Range Interpretation Comme nts NA (test code = 2955552366) 141 mmol/L 135-145 K (test code = 0552518983) 4.8 mmol/L 3.5-5.0 CL (test code = 6580855920) 116 mmol/L 98-108 H CO2 TOTAL (test code = 6844017789) 22 mmol/L 23-31 L AGAP (test code = 3970634531) 3 2-16 BUN (test code = 3096096352) 32 mg/dL 7-23 H GLUCOSE (test code = 5464398694) 128 mg/dL 70-110 H CREATININE (test code = 2160-0) 1.49 mg/dL 0.60-1.25 H CALCIUM (test code = 3954203384) 8.8 mg/dL 8.6-10.6 eGFR (test code = 38389-7) 51.1 mL/min/1.73m2 CKD-EPI eGFR (2020). Assuming creatinine has been stable day-to-day for at least three months, the eGFR indicates Category G3a (45 - 59 mL/min/1.73 m2) Lab Interpretation (test code = 40887-2) Abnormal [facility] without Vhsp7482-25-76 11:13:27* Test Item Value Reference Range Interpretation Comme nts WBC (test code = 6690-2) 8.69 4.20-10.70 RBC (test code = 789-8) 2.11 4.26-5.52 L HGB (test code = 718-7) 6.2 g/dL 12.2-16.4 L HCT (test code = 4544-3) 19.7 % 38.4-49.3 L MCH (test code = 785-6) 29.4 pg 26.1-32.7 MCV (test code = 787-2) 93.4 fL 81.7-95.6 MCHC (test code = 786-4) 31.5 g/dL 31.2-35.0 PLT (test code = 777-3) 98 150-328 L MPV (test code = 92834-6) 11.5 fL 9.8-13.0 RDW-CV (test code = 788-0) 17.3 % 12.1-15.4 H RDW-SD (test code = 96441-8) 59.7 fL 38.5-51.6 H NRBC x10^3 (test code = 4609581079) See_Comment [Automated [employer] ge] The system which generated this result transmitted reference range: 10*3/?L. The reference range was not used to interpret this result as normal/abnormal. NRBC/100 WBC (test code = 9184396262) 0.0 0.0-10.0 IPF % (test code = 0189571542) 5.0 % 1.2-10.7 Platelet count measured by fluorescence method. Lab Interpretation (test code = 05613-2) Abnormal [facility] GLUCOSE (AUTOMATED)2023-07-11 10:18:31* Test Item Value Reference Range Interpretation Comme nts POCT GLU (test code = 8877586673) 146 mg/dL 70-110 H Lab Interpretation (test cod e = 35243-4) Abnormal [facility] GLUCOSE (AUTOMATED)2023-07-11 07:12:03* Test Item Value Reference Range Interpretation Comme [facility] POCT GLU (test code = 6733340332) 154 mg/dL 70-110 H Lab Interpretation (test cod e = 07561-5) Abnormal [facility] GLUCOSE (AUTOMATED)2023-07-11 02:00:04* Test Item Value Reference Range Interpretation Comme nts POCT GLU (test code = 3747789173) 149 mg/dL 70-110 H Lab Interpretation (test cod e = 22128-8) Abnormal [facility] GLUCOSE (AUTOMATED)2023-07-10 22:15:05* Test Item Value Reference Range Interpretation Comme nts POCT GLU (test code = 0715586729) 145 mg/dL 70-110 H Notified Provide r Lab Interpretation (test code = 41030-0) [facility]normal [facility] [id number] 18:08:31EXAM: XR KUB HISTORY: 68 years-old Male; Abdominal pain/distension . TECHNIQUE: Frontal views of the abdomen and pelvis COMPARISON: KUB 07/08/[address] abdomen pelvis 04/15/2022 [facility] GLUCOSE (AUTOMATED)2023-07-10 16:43:45* Test Item Value Reference Range Interpretation Comme nts POCT GLU (test code = 0066238481) 140 mg/dL 70-110 H Notified Provide r Lab Interpretation (test code = 04482-8) Abnormal [facility] GLUCOSE (AUTOMATED)2023-07-10 12:57:45* Test Item Value Reference Range Interpretation Comme nts POCT GLU (test code = 0989027210) 157 mg/dL 70-110 H Lab Interpretation (test cod e = 06420-3) [facility]normal [facility]iscoCbc without [id number] 10:09:51* Test Item Value Reference Range Interpretation Comme nts WBC (test code = 6690-2) 10.54 4.20-10.70 RBC (test code = 789-8) 2.61 4.26-5.52 L HGB (test code = 718-7) 7.8 g/dL 12.2-16.4 L HCT (test code = 4544-3) 23.0 % 38.4-49.3 L MCH (test code = 785-6) 29.9 pg 26.1-32.7 MCV (test code = 787-2) 88.1 fL 81.7-95.6 MCHC (test code = 786-4) 33.9 g/dL 31.2-35.0 PLT (test code = 777-3) 116 150-328 L MPV (test code = 40630-4) 11.6 fL 9.8-13.0 RDW-CV (test code = 788-0) 17.9 % 12.1-15.4 H RDW-SD (test code = 10554-9) 57.2 fL 38.5-51.6 H NRBC x10^3 (test code = 9040658484) 0.02 See_Comment [Automated messa ge] The system which generated this result transmitted reference range: 10*3/?L. The reference range was not used to interpret this result as normal/abnormal. NRBC/100 WBC (test code = 2878976370) 0.2 0.0-10.0 IPF % (test code = 4518098269) 6.0 % 1.2-10.7 Platelet count measured by fluorescence method. Lab Interpretation (test code = 53929-4) Abnormal [facility]iscoPhosphorus2024-03-14 10:08:30* Test Item Value Reference Range Interpretation Comme nts PHOSPHORUS (test code = 4605813755) 3.0 mg/dL 2.5-5.0 Lab Interpretation (test cod e = 35313-1) Normal [facility]iscoMagnesium2024-03-14 10:08:30* Test Item Value Reference Range Interpretation Comme nts MAGNESIUM (test code = 9165493904) 2.6 mg/dL 1.7-2.4 H Lab Interpretation (test cod e = 96043-0) [facility]normal [facility] Metabolic Panel (NA, K, CL, CO2, GLUCOSE, BUN, CREATININE, CA)2023-07-10 10:08:30* Test Item Value Reference Range Interpretation Comme nts NA (test code = 6664105594) 138 mmol/L 135-145 K (test code = 4912913857) 4.2 mmol/L 3.5-5.0 CL (test code = 9774848073) 112 mmol/L 98-108 H CO2 TOTAL (test code = 8805152245) 22 mmol/L 23-31 L AGAP (test code = 8907122897) 4 2-16 BUN (test code = 3781945146) 23 mg/dL 7-23 GLUCOSE (test code = 7623029882) 183 mg/dL 70-110 H CREATININE (test code = 2160-0) 1.64 mg/dL 0.60-1.25 H CALCIUM (test code = 0499366135) 8.7 mg/dL 8.6-10.6 eGFR (test code = 19002-6) 45.6 mL/min/1.73m2 CKD-EPI eGFR (2020). Assuming creatinine has been stable day-to-day for at least three months, the eGFR indicates Category G3a (45 - 59 mL/min/1.73 m2) Lab Interpretation (test code = 50179-9) Abnormal [facility]AC Panel 20 + Lactic Acid [id number] 09:29:59* Test Item Value Reference Range Interpretation Comme nts PH (test code = 2) 7.39 7.35-7.45 PCO2 (test code = 9211085580) 36 35-45 PO2 (test code = 9362547575) 67 80-100 L HCO3 (test code = 1268178951) 21 22-26 L BE (test code = 8883556799) -3.5 -3.0-3.0 L THB (test code = 3393579486) 8.7 g/dL 13.5-18.0 L %O2HB (test code = 7693854128) 92.8 % 94.0-99.0 L %COHB ART (test code = 7379503480) 0.4 % 0.0-1.5 %METHB ART (test code = 4302951013) 0.3 % 0.4-1.5 L VOL%O2 ART (test code = 9138188852) 11.4 % 15.0-23.0 L NA (test code = 6482963111) 138 mmol/L 135-145 K+ (test code = 2967872154) 4.2 mmol/L 3.5-5.0 AC CA IONZ (test code = 7944966135) 4.80 mg/dL 4.50-5.30 GLUCOSE (test code = 4782743785) 182 mg/dL 70-110 H LACTIC ACID (test code = 9089495495) 1.47 mmol/L 0.50-2.20 Lab Interpretation (test cod e = 84080-0) Abnormal [facility] GLUCOSE (AUTOMATED)2023-07-10 05:27:55* Test Item Value Reference Range Interpretation Comme [facility] POCT GLU (test code = 7733163220) 180 mg/dL 70-110 H Lab Interpretation (test cod e = 55294-1) Abnormal [facility] GLUCOSE (AUTOMATED)2023-07-10 01:48:25* Test Item Value Reference Range Interpretation Comme [facility] POCT GLU (test code = 5474162109) 146 mg/dL 70-110 H Lab Interpretation (test cod e = 93856-6) Abnormal [facility] Panel 20 + Lactic Acid [id number] 17:57:01* Test Item Value Reference Range Interpretation Comme [facility] PH (test code = 2) 7.40 7.35-7.45 PCO2 (test code = 4775191318) 32 35-45 L PO2 (test code = 6709796258) 138 80-100 H HCO3 (test code = 8231189817) 20 22-26 L BE (test code = 2446744530) -4.5 -3.0-3.0 L THB (test code = 4530265377) 8.6 g/dL 13.5-18.0 L %O2HB (test code = 5829746479) 98.2 % 94.0-99.0 %COHB ART (test code = 4651848684) 0.0 % 0.0-1.5 %METHB ART (test code = 3011073654) 0.3 % 0.4-1.5 L VOL%O2 ART (test code = 9788590631) 12.2 % 15.0-23.0 L NA (test code = 8918838782) 139 mmol/L 135-145 K+ (test code = 5292174760) 4.2 mmol/L 3.5-5.0 AC CA IONZ (test code = 8732127940) 4.70 mg/dL 4.50-5.30 GLUCOSE (test code = 7270832897) 124 mg/dL 70-110 H LACTIC ACID (test code = 1788131588) 1.13 mmol/L 0.50-2.20 Lab Interpretation (test cod e = 90172-1) Abnormal [facility] 20 + Lactic Acid [id number] 17:57:01* Test Item Value Reference Range Interpretation Comme nts PH (test code = 2) 7.40 7.35-7.45 PCO2 (test code = 0526428689) 32 35-45 L PO2 (test code = 6242260334) 138 80-100 H HCO3 (test code = 1264785922) 20 22-26 L BE (test code = 1568067030) -4.5 -3.0-3.0 L THB (test code = 7175240429) 8.6 g/dL 13.5-18.0 L %O2HB (test code = 8840438389) 98.2 % 94.0-99.0 %COHB ART (test code = 2396584677) 0.0 % 0.0-1.5 %METHB ART (test code = 7890675071) 0.3 % 0.4-1.5 L VOL%O2 ART (test code = 4366009451) 12.2 % 15.0-23.0 L NA (test code = 7893658575) 139 mmol/L 135-145 K+ (test code = 5008506729) 4.2 mmol/L 3.5-5.0 AC CA IONZ (test code = 7665634326) 4.70 mg/dL 4.50-5.30 GLUCOSE (test code = 5217556922) 124 mg/dL 70-110 H LACTIC ACID (test code = 4554706031) 1.13 mmol/L 0.50-2.20 Lab Interpretation (test cod e = 78644-9) Abnormal [facility] 20 + Lactic Acid [id number] 17:57:01* Test Item Value Reference Range Interpretation Comme nts PH (test code = 2) 7.40 7.35-7.45 PCO2 (test code = 7955137169) 32 35-45 L PO2 (test code = 8473858713) 138 80-100 H HCO3 (test code = 3189873648) 20 22-26 L BE (test code = 4399879522) -4.5 -3.0-3.0 L THB (test code = 7882770324) 8.6 g/dL 13.5-18.0 L %O2HB (test code = 5287178508) 98.2 % 94.0-99.0 %COHB ART (test code = 4721921959) 0.0 % 0.0-1.5 %METHB ART (test code = 8108341954) 0.3 % 0.4-1.5 L VOL%O2 ART (test code = 4210793581) 12.2 % 15.0-23.0 L NA (test code = 5639318176) 139 mmol/L 135-145 K+ (test code = 5491780304) 4.2 mmol/L 3.5-5.0 AC CA IONZ (test code = 8763137388) 4.70 mg/dL 4.50-5.30 GLUCOSE (test code = 4999525885) 124 mg/dL 70-110 H LACTIC ACID (test code = 9461646107) 1.13 mmol/L 0.50-2.20 Lab Interpretation (test cod e = 09438-9) Abnormal [facility] 1 [id number] 13:58:21COMPARISON : 07/08/2023 [id number] 13:58:21COMPARISON : 07/08/2023 HISTORY: s/p open heart surgery [facility] 1 [id number] 13:58:21COMPARISON : 07/08/2023 [facility] [id number] 13:42:53COMPARISON: 07/08/2023 [facility] [id number] 13:42:53 COMPARISON: 07[facility]08/2023 [facility] [id number] 13:42:53COMPARISON: 07/08/2023 HISTORY: [facility]Un[facility]PO[facility]) 2023-07-09 13:24:29* Test Item Value Reference Range Interpretation Comme nts POCT GLU (test code = 9041010840) 150 mg/dL 70-110 H Lab Interpretation (test cod e = 81105-1) Abnormal [facility] GLUCOSE (AUTOMATED)2023-07-09 13:24:29* Test Item Value Reference Range Interpretation Comme nts POCT GLU (test code = 4362085357) 150 mg/dL 70-110 H Lab Interpretation (test cod e = 95386-2) Abnormal [facility] GLUCOSE (AUTOMATED)2023-07-09 13:24:29* Test Item Value Reference Range Interpretation Comme nts POCT GLU (test code = 7546971978) 150 mg/dL 70-110 H Lab Interpretation (test cod e = 30425-6) Abnormal [facility] with [id number] 10:06:06* Test Item Value Reference Range Interpretation Comme [facility] WBC (test code = 6690-2) 9.02 4.20-10.70 RBC (test code = 789-8) 2.83 4.26-5.52 L HGB (test code = 718-7) 8.5 g/dL 12.2-16.4 L HCT (test code = 4544-3) 24.9 % 38.4-49.3 L MCV (test code = 787-2) 88.0 fL 81.7-95.6 MCH (test code = 785-6) 30.0 pg 26.1-32.7 MCHC (test code = 786-4) 34.1 g/dL 31.2-35.0 RDW-SD (test code = 09082-9) 55.8 fL 38.5-51.6 H RDW-CV (test code = 788-0) 17.2 % 12.1-15.4 H PLT (test code = 777-3) 117 150-328 L MPV (test code = 63239-6) 11.6 fL 9.8-13.0 IPF % (test code = 4849593389) 5.0 % 1.2-10.7 Platelet count measured by fluorescence method. NRBC/100 WBC (test code = 8007611693) 0.0 0.0-10.0 NRBC x10^3 (test code = 7460516796) See_Comment [Automated messa ge] The system which generated this result transmitted reference range: 10*3/?L. The reference range was not used to interpret this result as normal/abnormal. GRAN MAT (NEUT) % (test code = 770-8) 84.6 % IMM GRAN % (test code = 1889073412) 0.70 % LYMPH % (test code = 736-9) 4.2 % MONO % (test code = 5905-5) 10.4 % EOS % (test code = 713-8) 0.0 % BASO % (test code = 706-2) 0.1 % GRAN MAT x10^3(ANC) (test code = 1897542566) 7.63 10*3/uL 1.99-6.95 H IMM GRAN x10^3 (test code = 1755620051) 0.06 10*3/uL 0.00-0.06 LYMPH x10^3 (test code = 731-0) 0.38 10*3/uL 1.09-3.23 L MONO x10^3 (test code = 742-7) 0.94 10*3/uL 0.36-1.02 EOS x10^3 (test code = 711-2) 0.06-0.53 L BASO x10^3 (test code = 704-7) 0.01-0.09 Lab Interpretation (test code = 42701-6) Abnormal [facility] with [id number] 10:06:06* Test Item Value Reference Range Interpretation Comme nts WBC (test code = 6690-2) 9.02 4.20-10.70 RBC (test code = 789-8) 2.83 4.26-5.52 L HGB (test code = 718-7) 8.5 g/dL 12.2-16.4 L HCT (test code = 4544-3) 24.9 % 38.4-49.3 L MCV (test code = 787-2) 88.0 fL 81.7-95.6 MCH (test code = 785-6) 30.0 pg 26.1-32.7 MCHC (test code = 786-4) 34.1 g/dL 31.2-35.0 RDW-SD (test code = 43928-1) 55.8 fL 38.5-51.6 H RDW-CV (test code = 788-0) 17.2 % 12.1-15.4 H PLT (test code = 777-3) 117 150-328 L MPV (test code = 52668-4) 11.6 fL 9.8-13.0 IPF % (test code = 5222133633) 5.0 % 1.2-10.7 Platelet count measured by fluorescence method. NRBC/100 WBC (test code = 6708760735) 0.0 0.0-10.0 NRBC x10^3 (test code = 0271281516) See_Comment [Automated [employer] ge] The system which generated this result transmitted reference range: 10*3/?L. The reference range was not used to interpret this result as normal/abnormal. GRAN MAT (NEUT) % (test code = 770-8) 84.6 % IMM GRAN % (test code = 6258452844) 0.70 % LYMPH % (test code = 736-9) 4.2 % MONO % (test code = 5905-5) 10.4 % EOS % (test code = 713-8) 0.0 % BASO % (test code = 706-2) 0.1 % GRAN MAT x10^3(ANC) (test code = 8017967413) 7.63 10*3/uL 1.99-6.95 H IMM GRAN x10^3 (test code = 4655524569) 0.06 10*3/uL 0.00-0.06 LYMPH x10^3 (test code = 731-0) 0.38 10*3/uL 1.09-3.23 L MONO x10^3 (test code = 742-7) 0.94 10*3/uL 0.36-1.02 EOS x10^3 (test code = 711-2) 0.06-0.53 L BASO x10^3 (test code = 704-7) 0.01-0.09 Lab Interpretation (test code = 80978-1) Abnormal [facility] with Nzit1194-07-12 10:06:06* Test Item Value Reference Range Interpretation Comme nts WBC (test code = 6690-2) 9.02 4.20-10.70 RBC (test code = 789-8) 2.83 4.26-5.52 L HGB (test code = 718-7) 8.5 g/dL 12.2-16.4 L HCT (test code = 4544-3) 24.9 % 38.4-49.3 L MCV (test code = 787-2) 88.0 fL 81.7-95.6 MCH (test code = 785-6) 30.0 pg 26.1-32.7 MCHC (test code = 786-4) 34.1 g/dL 31.2-35.0 RDW-SD (test code = 17175-0) 55.8 fL 38.5-51.6 H RDW-CV (test code = 788-0) 17.2 % 12.1-15.4 H PLT (test code = 777-3) 117 150-328 L MPV (test code = 47240-1) 11.6 fL 9.8-13.0 IPF % (test code = 9596920454) 5.0 % 1.2-10.7 Platelet count measured by fluorescence method. NRBC/100 WBC (test code = 7784265106) 0.0 0.0-10.0 NRBC x10^3 (test code = 1801211828) See_Comment [Automated [employer] ge] The system which generated this result transmitted reference range: 10*3/?L. The reference range was not used to interpret this result as normal/abnormal. GRAN MAT (NEUT) % (test code = 770-8) 84.6 % IMM GRAN % (test code = 8790477443) 0.70 % LYMPH % (test code = 736-9) 4.2 % MONO % (test code = 5905-5) 10.4 % EOS % (test code = 713-8) 0.0 % BASO % (test code = 706-2) 0.1 % GRAN MAT x10^3(ANC) (test code = 6631430226) 7.63 10*3/uL 1.99-6.95 H IMM GRAN x10^3 (test code = 4156523277) 0.06 10*3/uL 0.00-0.06 LYMPH x10^3 (test code = 731-0) 0.38 10*3/uL 1.09-3.23 L MONO x10^3 (test code = 742-7) 0.94 10*3/uL 0.36-1.02 EOS x10^3 (test code = 711-2) 0.06-0.53 L BASO x10^3 (test code = 704-7) 0.01-0.09 Lab Interpretation (test code = 29066-6) [facility]normal [facility]iscoPhosphorus2024-03-13 10:03:25* Test Item Value Reference Range Interpretation Comme nts PHOSPHORUS (test code = 6620679126) 3.1 mg/dL 2.5-5.0 Lab Interpretation (test cod e = 83168-7) Normal [facility]isco[facility]osphorus2024-03-13 10:03:25* Test Item Value Reference Range Interpretation Comme nts PHOSPHORUS (test code = 8730272608) 3.1 mg/dL 2.5-5.0 Lab Interpretation (test cod e = 72270-1) Normal [facility]isco[facility]2024-03-13 10:03:25* Test Item Value Reference Range Interpretation Comme nts PHOSPHORUS (test code = 9097402807) 3.1 mg/dL 2.5-5.0 Lab Interpretation (test cod e = 76198-6) [facility] (NA, K, CL, CO2, GLUCOSE, BUN, CREATININE, CA)2023-07-09 10:03:24* Test Item Value Reference Range Interpretation Comme nts NA (test code = 6036572150) 139 mmol/L 135-145 K (test code = 7430326930) 4.6 mmol/L 3.5-5.0 CL (test code = 1802896354) 114 mmol/L 98-108 H CO2 TOTAL (test code = 6179440271) 20 mmol/L 23-31 L AGAP (test code = 6489365303) 5 2-16 BUN (test code = 3674467636) 16 mg/dL 7-23 GLUCOSE (test code = 3786747858) 160 mg/dL 70-110 H CREATININE (test code = 2160-0) 1.43 mg/dL 0.60-1.25 H CALCIUM (test code = 4860937015) 8.5 mg/dL 8.6-10.6 L eGFR (test code = 57007-7) 53.7 mL/min/1.73m2 CKD-EPI eGFR (2020). Assuming creatinine has been stable day-to-day for at least three months, the eGFR indicates Category G3a (45 - 59 mL/min/1.73 m2) Lab Interpretation (test code = 76699-6) Abnormal [facility]2024-03-13 10:03:24* Test Item Value Reference Range Interpretation Comme nts MAGNESIUM (test code = 3881984166) 3.1 mg/dL 1.7-2.4 H Lab Interpretation (test cod e = 30565-4) Abnormal [facility] Metabolic Panel (NA, K, CL, CO2, GLUCOSE, BUN, CREATININE, CA)2023-07-09 10:03:24* Test Item Value Reference Range Interpretation Comme nts NA (test code = 2826995173) 139 mmol/L 135-145 K (test code = 6796841941) 4.6 mmol/L 3.5-5.0 CL (test code = 2887357588) 114 mmol/L 98-108 H CO2 TOTAL (test code = 1414089929) 20 mmol/L 23-31 L AGAP (test code = 0142864364) 5 2-16 BUN (test code = 6955683322) 16 mg/dL 7-23 GLUCOSE (test code = 7816672701) 160 mg/dL 70-110 H CREATININE (test code = 2160-0) 1.43 mg/dL 0.60-1.25 H CALCIUM (test code = 7549840482) 8.5 mg/dL 8.6-10.6 L eGFR (test code = 65931-3) 53.7 mL/min/1.73m2 CKD-EPI eGFR (2020). Assuming creatinine has been stable day-to-day for at least three months, the eGFR indicates Category G3a (45 - 59 mL/min/1.73 m2) Lab Interpretation (test code = 97525-5) Abnormal [facility]2024-03-13 10:03:24* Test Item Value Reference Range Interpretation Comme nts MAGNESIUM (test code = 6276284333) 3.1 mg/dL 1.7-2.4 H Lab Interpretation (test cod e = 13696-6) [facility]normal [facility] Metabolic Panel (NA, K, CL, CO2, GLUCOSE, BUN, CREATININE, CA)2023-07-09 10:03:24* Test Item Value Reference Range Interpretation Comme nts NA (test code = 3286779192) 139 mmol/L 135-145 K (test code = 8325856200) 4.6 mmol/L 3.5-5.0 CL (test code = 7345025571) 114 mmol/L 98-108 H CO2 TOTAL (test code = 8058817365) 20 mmol/L 23-31 L AGAP (test code = 8138825613) 5 2-16 BUN (test code = 5681287025) 16 mg/dL 7-23 GLUCOSE (test code = 5489923125) 160 mg/dL 70-110 H CREATININE (test code = 2160-0) 1.43 mg/dL 0.60-1.25 H CALCIUM (test code = 2110966012) 8.5 mg/dL 8.6-10.6 L eGFR (test code = 47893-4) 53.7 mL/min/1.73m2 CKD-EPI eGFR (2020). Assuming creatinine has been stable day-to-day for at least three months, the eGFR indicates Category G3a (45 - 59 mL/min/1.73 m2) Lab Interpretation (test code = 63102-3) [facility]normal [facility]isco[facility]esium2024-03-13 10:03:24* Test Item Value Reference Range Interpretation Comme nts MAGNESIUM (test code = 5328395177) 3.1 mg/dL 1.7-2.4 H Lab Interpretation (test cod e = 54393-7) Abnormal [facility]iscoProthrom[facility] Time / [id number] 09:32:57* Test Item Value Reference Range Interpretation Comme nts PROTIME PATIENT (test code = 5964-2) 11.6 10.1-12.6 INR (test code = 6301-6) 1.0 Normal INR <1.1; Warfarin Therapeutic range 2.0 to 3.0 or 2.5 to 3.5, depending upon the indications. Lab Interpretation (test code = 13769-4) Normal [facility] / [id number] 09:32:57* Test Item Value Reference Range Interpretation Comme nts PROTIME PATIENT (test code = 5964-2) 11.6 10.1-12.6 INR (test code = 6301-6) 1.0 Normal INR <1.1; Warfarin Therapeutic range 2.0 to 3.0 or 2.5 to 3.5, depending upon the indications. Lab Interpretation (test code = 25424-2) [facility] / [id number] 09:32:57* Test Item Value Reference Range Interpretation Comme nts PROTIME PATIENT (test code = 5964-2) 11.6 10.1-12.6 INR (test code = 6301-6) 1.0 Normal INR <1.1; Warfarin Therapeutic range 2.0 to 3.0 or 2.5 to 3.5, depending upon the indications. Lab Interpretation (test code = 53268-2) Normal [facility] GLUCOSE (AUTOMATED)2023-07-09 09:10:50* Test Item Value Reference Range Interpretation Comme nts POCT GLU (test code = 6227050580) 186 mg/dL 70-110 H Lab Interpretation (test cod e = 87475-9) Abnormal [facility] GLUCOSE (AUTOMATED)2023-07-09 09:10:50* Test Item Value Reference Range Interpretation Comme nts POCT GLU (test code = 9632931612) 186 mg/dL 70-110 H Lab Interpretation (test cod e = 75646-6) Abnormal [facility] GLUCOSE (AUTOMATED)2023-07-09 09:10:50* Test Item Value Reference Range Interpretation Comme nts POCT GLU (test code = 4836876119) 186 mg/dL 70-110 H Lab Interpretation (test cod e = 33096-2) Abnormal [facility] with [id number] 08:21:30* Test Item Value Reference Range Interpretation Comme nts WBC (test code = 6690-2) 9.92 4.20-10.70 RBC (test code = 789-8) 2.92 4.26-5.52 L HGB (test code = 718-7) 8.6 g/dL 12.2-16.4 L HCT (test code = 4544-3) 25.6 % 38.4-49.3 L MCV (test code = 787-2) 87.7 fL 81.7-95.6 MCH (test code = 785-6) 29.5 pg 26.1-32.7 MCHC (test code = 786-4) 33.6 g/dL 31.2-35.0 RDW-SD (test code = 27638-1) 54.4 fL 38.5-51.6 H RDW-CV (test code = 788-0) 17.0 % 12.1-15.4 H PLT (test code = 777-3) 129 150-328 L MPV (test code = 05645-4) 11.3 fL 9.8-13.0 IPF % (test code = 1686546895) 5.5 % 1.2-10.7 Platelet count measured by fluorescence method. NRBC/100 WBC (test code = 0590034373) 0.0 0.0-10.0 NRBC x10^3 (test code = 7641783256) See_Comment [Automated messa ge] The system which generated this result transmitted reference range: 10*3/?L. The reference range was not used to interpret this result as normal/abnormal. GRAN MAT (NEUT) % (test code = 770-8) 84.4 % IMM GRAN % (test code = 8165813655) 0.50 % LYMPH % (test code = 736-9) 4.1 % MONO % (test code = 5905-5) 10.9 % EOS % (test code = 713-8) 0.0 % BASO % (test code = 706-2) 0.1 % GRAN MAT x10^3(ANC) (test code = 1383820901) 8.37 10*3/uL 1.99-6.95 H IMM GRAN x10^3 (test code = 4281648750) 0.05 10*3/uL 0.00-0.06 LYMPH x10^3 (test code = 731-0) 0.41 10*3/uL 1.09-3.23 L MONO x10^3 (test code = 742-7) 1.08 10*3/uL 0.36-1.02 H EOS x10^3 (test code = 711-2) 0.06-0.53 L BASO x10^3 (test code = 704-7) 0.01-0.09 Lab Interpretation (test code = 10252-4) Abnormal [facility] with [id number] 08:21:30* Test Item Value Reference Range Interpretation Comme nts WBC (test code = 6690-2) 9.92 4.20-10.70 RBC (test code = 789-8) 2.92 4.26-5.52 L HGB (test code = 718-7) 8.6 g/dL 12.2-16.4 L HCT (test code = 4544-3) 25.6 % 38.4-49.3 L MCV (test code = 787-2) 87.7 fL 81.7-95.6 MCH (test code = 785-6) 29.5 pg 26.1-32.7 MCHC (test code = 786-4) 33.6 g/dL 31.2-35.0 RDW-SD (test code = 57253-6) 54.4 fL 38.5-51.6 H RDW-CV (test code = 788-0) 17.0 % 12.1-15.4 H PLT (test code = 777-3) 129 150-328 L MPV (test code = 30865-7) 11.3 fL 9.8-13.0 IPF % (test code = 2303352221) 5.5 % 1.2-10.7 Platelet count measured by fluorescence method. NRBC/100 WBC (test code = 4173627006) 0.0 0.0-10.0 NRBC x10^3 (test code = 3547760866) See_Comment [Automated [employer]] The system which generated this result transmitted reference range: 10*3/?L. The reference range was not used to interpret this result as normal/abnormal. GRAN MAT (NEUT) % (test code = 770-8) 84.4 % IMM GRAN % (test code = 5511550813) 0.50 % LYMPH % (test code = 736-9) 4.1 % MONO % (test code = 5905-5) 10.9 % EOS % (test code = 713-8) 0.0 % BASO % (test code = 706-2) 0.1 % GRAN MAT x10^3(ANC) (test code = 8245597040) 8.37 10*3/uL 1.99-6.95 H IMM GRAN x10^3 (test code = 6361079905) 0.05 10*3/uL 0.00-0.06 LYMPH x10^3 (test code = 731-0) 0.41 10*3/uL 1.09-3.23 L MONO x10^3 (test code = 742-7) 1.08 10*3/uL 0.36-1.02 H EOS x10^3 (test code = 711-2) 0.06-0.53 L BASO x10^3 (test code = 704-7) 0.01-0.09 Lab Interpretation (test code = 61591-1) Abnormal [facility] with [id number] 08:21:30* Test Item Value Reference Range Interpretation Comme nts WBC (test code = 6690-2) 9.92 4.20-10.70 RBC (test code = 789-8) 2.92 4.26-5.52 L HGB (test code = 718-7) 8.6 g/dL 12.2-16.4 L HCT (test code = 4544-3) 25.6 % 38.4-49.3 L MCV (test code = 787-2) 87.7 fL 81.7-95.6 MCH (test code = 785-6) 29.5 pg 26.1-32.7 MCHC (test code = 786-4) 33.6 g/dL 31.2-35.0 RDW-SD (test code = 92752-1) 54.4 fL 38.5-51.6 H RDW-CV (test code = 788-0) 17.0 % 12.1-15.4 H PLT (test code = 777-3) 129 150-328 L MPV (test code = 49150-0) 11.3 fL 9.8-13.0 IPF % (test code = 9439442814) 5.5 % 1.2-10.7 Platelet count measured by fluorescence method. NRBC/100 WBC (test code = 0453889459) 0.0 0.0-10.0 NRBC x10^3 (test code = 7558211423) See_Comment [Automated messa ge] The system which generated this result transmitted reference range: 10*3/?L. The reference range was not used to interpret this result as normal/abnormal. GRAN MAT (NEUT) % (test code = 770-8) 84.4 % IMM GRAN % (test code = 6483494977) 0.50 % LYMPH % (test code = 736-9) 4.1 % MONO % (test code = 5905-5) 10.9 % EOS % (test code = 713-8) 0.0 % BASO % (test code = 706-2) 0.1 % GRAN MAT x10^3(ANC) (test code = 0099148625) 8.37 10*3/uL 1.99-6.95 H IMM GRAN x10^3 (test code = 5005519210) 0.05 10*3/uL 0.00-0.06 LYMPH x10^3 (test code = 731-0) 0.41 10*3/uL 1.09-3.23 L MONO x10^3 (test code = 742-7) 1.08 10*3/uL 0.36-1.02 H EOS x10^3 (test code = 711-2) 0.06-0.53 L BASO x10^3 (test code = 704-7) 0.01-0.09 Lab Interpretation (test code = 81010-3) Abnormal [facility] GLUCOSE (AUTOMATED)2023-07-09 07:35:51* Test Item Value Reference Range Interpretation Comme nts POCT GLU (test code = 4920989277) 192 mg/dL 70-110 H Lab Interpretation (test cod e = 13420-5) Abnormal [facility] GLUCOSE (AUTOMATED)2023-07-09 07:35:51* Test Item Value Reference Range Interpretation Comme nts POCT GLU (test code = 1712169914) 192 mg/dL 70-110 H Lab Interpretation (test cod e = 55233-1) Abnormal [facility] GLUCOSE (AUTOMATED)2023-07-09 07:35:51* Test Item Value Reference Range Interpretation Comme nts POCT GLU (test code = 8907031312) 192 mg/dL 70-110 H Lab Interpretation (test cod e = 63163-8) Abnormal [facility] GLUCOSE (AUTOMATED)2023-07-09 04:47:07* Test Item Value Reference Range Interpretation Comme nts POCT GLU (test code = 3419995032) 220 mg/dL 70-110 H Lab Interpretation (test cod e = 66429-0) Abnormal [facility] GLUCOSE (AUTOMATED)2023-07-09 04:47:07* Test Item Value Reference Range Interpretation Comme nts POCT GLU (test code = 1833435445) 220 mg/dL 70-110 H Lab Interpretation (test cod e = 05959-2) Abnormal [facility] GLUCOSE (AUTOMATED)2023-07-09 04:47:07* Test Item Value Reference Range Interpretation Comme nts POCT GLU (test code = 9547210031) 220 mg/dL 70-110 H Lab Interpretation (test cod e = 00310-6) Abnormal [facility] Packed RBC (in units), 1 Units 2023-07-09 04:15:12* Test Item Value Reference Range Interpretation Comme nts Cross Match Result (test code = 4409) Compatible ISBT Blood Type Code (test code = 747901) 7300 Unit Blood Type (test code = 4410) B Pos Unit Number (test code = 4411) [id number] Blood Expiration Date & Time (test code = 696093) 417890489973 Status Information (test code = 4412) Issued Product Identification (test code = 4413) Red Blood Cells Product Code (test code = 4414) [id number] Performed at [facility] B Laboratory Services - [facility] Blood [address] [place] [address]Vwuk Free: [phone] No. [id number] [facility] Packed RBC (in units), 1 Units 2023-07-09 04:15:12* Test Item Value Reference Range Interpretation Comme nts Cross Match Result (test code = 4409) Compatible ISBT Blood Type Code (test code = 041719) 7300 Unit Blood Type (test code = 4410) B Pos Unit Number (test code = 4411) [id number] Blood Expiration Date & Time (test code = 767547) 071252981402 Status Information (test code = 4412) Issued Product Identification (test code = 4413) Red Blood Cells Product Code (test code = 4414) [id number] Performed at [facility] Blood [address] Free: [phone] No. [id number] [facility] Packed RBC (in units), 1 Units 2023-07-09 04:15:12* Test Item Value Reference Range Interpretation Comme [facility] Cross Match Result (test code = 4409) Compatible ISBT Blood Type Code (test code = 310042) 7300 Unit Blood Type (test code = 4410) B Pos Unit Number (test code = 4411) [id number] Blood Expiration Date & Time (test code = 552683) 506630321364 Status Information (test code = 4412) Issued Product Identification (test code = 4413) Red Blood Cells Product Code (test code = 4414) [id number] Performed at [facility] Blood [place] [id number] Free: [phone] No. [id number] [facility] Met[facility] (NA, K, CL, CO2, GLUCOSE, BUN, CREATININE, CA)2023-07-09 03:27:09* Test Item Value Reference Range Interpretation Comme nts NA (test code = 0386266656) 136 mmol/L 135-145 K (test code = 8691767677) 4.9 mmol/L 3.5-5.0 CL (test code = 9834728151) 113 mmol/L 98-108 H CO2 TOTAL (test code = 0754940772) 20 mmol/L 23-31 L AGAP (test code = 8241854595) 3 2-16 BUN (test code = 1592354847) 16 mg/dL 7-23 GLUCOSE (test code = 1101054543) 201 mg/dL 70-110 H CREATININE (test code = 2160-0) 1.42 mg/dL 0.60-1.25 H CALCIUM (test code = 3712911787) 8.2 mg/dL 8.6-10.6 L eGFR (test code = 01426-7) 54.2 mL/min/1.73m2 CKD-EPI eGFR (2020). Assuming creatinine has been stable day-to-day for at least three months, the eGFR indicates Category G3a (45 - 59 mL/min/1.73 m2) Lab Interpretation (test code = 45518-2) Abnormal [facility] Metabolic Panel (NA, K, CL, CO2, GLUCOSE, BUN, CREATININE, CA)2023-07-09 03:27:09* Test Item Value Reference Range Interpretation Comme nts NA (test code = 5179718166) 136 mmol/L 135-145 K (test code = 1805643849) 4.9 mmol/L 3.5-5.0 CL (test code = 3234259092) 113 mmol/L 98-108 H CO2 TOTAL (test code = 2673358227) 20 mmol/L 23-31 L AGAP (test code = 4804191272) 3 2-16 BUN (test code = 2202631933) 16 mg/dL 7-23 GLUCOSE (test code = 3974186051) 201 mg/dL 70-110 H CREATININE (test code = 2160-0) 1.42 mg/dL 0.60-1.25 H CALCIUM (test code = 6556826667) 8.2 mg/dL 8.6-10.6 L eGFR (test code = 48109-9) 54.2 mL/min/1.73m2 CKD-EPI eGFR (2020). Assuming creatinine has been stable day-to-day for at least three months, the eGFR indicates Category G3a (45 - 59 mL/min/1.73 m2) Lab Interpretation (test code = 44864-1) Abnormal [facility] Metabolic Panel (NA, K, CL, CO2, GLUCOSE, BUN, CREATININE, CA)2023-07-09 03:27:09* Test Item Value Reference Range Interpretation Comme nts NA (test code = 4081169559) 136 mmol/L 135-145 K (test code = 1614006238) 4.9 mmol/L 3.5-5.0 CL (test code = 3631255000) 113 mmol/L 98-108 H CO2 TOTAL (test code = 8121309543) 20 mmol/L 23-31 L AGAP (test code = 5309549499) 3 2-16 BUN (test code = 7250394310) 16 mg/dL 7-23 GLUCOSE (test code = 2889451547) 201 mg/dL 70-110 H CREATININE (test code = 2160-0) 1.42 mg/dL 0.60-1.25 H CALCIUM (test code = 1895710911) 8.2 mg/dL 8.6-10.6 L eGFR (test code = 60037-7) 54.2 mL/min/1.73m2 CKD-EPI eGFR (2020). Assuming creatinine has been stable day-to-day for at least three months, the eGFR indicates Category G3a (45 - 59 mL/min/1.73 m2) Lab Interpretation (test code = 36808-0) Abnormal [facility] with Esyt2452-37-62 03:19:45* Test Item Value Reference Range Interpretation Comme nts WBC (test code = 6690-2) 6.92 4.20-10.70 RBC (test code = 789-8) 2.22 4.26-5.52 L HGB (test code = 718-7) 6.9 g/dL 12.2-16.4 L HCT (test code = 4544-3) 20.0 % 38.4-49.3 L MCV (test code = 787-2) 90.1 fL 81.7-95.6 MCH (test code = 785-6) 31.1 pg 26.1-32.7 MCHC (test code = 786-4) 34.5 g/dL 31.2-35.0 RDW-SD (test code = 22603-7) 50.3 fL 38.5-51.6 RDW-CV (test code = 788-0) 15.3 % 12.1-15.4 PLT (test code = 777-3) 111 150-328 L MPV (test code = 32782-1) 11.3 fL 9.8-13.0 IPF % (test code = 0495348270) 5.6 % 1.2-10.7 Platelet count measured by fluorescence method. NRBC/100 WBC (test code = 8378798474) 0.0 0.0-10.0 NRBC x10^3 (test code = 7396164029) See_Comment [Automated messa ge] The system which generated this result transmitted reference range: 10*3/?L. The reference range was not used to interpret this result as normal/abnormal. GRAN MAT (NEUT) % (test code = 770-8) 89.5 % IMM GRAN % (test code = 2392653328) 0.60 % LYMPH % (test code = 736-9) 2.9 % MONO % (test code = 5905-5) 6.9 % EOS % (test code = 713-8) 0.0 % BASO % (test code = 706-2) 0.1 % GRAN MAT x10^3(ANC) (test code = 2712343290) 6.19 10*3/uL 1.99-6.95 IMM GRAN x10^3 (test code = 2877865161) 0.04 10*3/uL 0.00-0.06 LYMPH x10^3 (test code = 731-0) 0.20 10*3/uL 1.09-3.23 L MONO x10^3 (test code = 742-7) 0.48 10*3/uL 0.36-1.02 EOS x10^3 (test code = 711-2) 0.06-0.53 L BASO x10^3 (test code = 704-7) 0.01-0.09 Lab Interpretation (test code = 11595-9) Abnormal [facility] with Fssz7472-85-61 03:19:45* Test Item Value Reference Range Interpretation Comme nts WBC (test code = 6690-2) 6.92 4.20-10.70 RBC (test code = 789-8) 2.22 4.26-5.52 L HGB (test code = 718-7) 6.9 g/dL 12.2-16.4 L HCT (test code = 4544-3) 20.0 % 38.4-49.3 L MCV (test code = 787-2) 90.1 fL 81.7-95.6 MCH (test code = 785-6) 31.1 pg 26.1-32.7 MCHC (test code = 786-4) 34.5 g/dL 31.2-35.0 RDW-SD (test code = 99884-4) 50.3 fL 38.5-51.6 RDW-CV (test code = 788-0) 15.3 % 12.1-15.4 PLT (test code = 777-3) 111 150-328 L MPV (test code = 95763-7) 11.3 fL 9.8-13.0 IPF % (test code = 9062758880) 5.6 % 1.2-10.7 Platelet count measured by fluorescence method. NRBC/100 WBC (test code = 7042588793) 0.0 0.0-10.0 NRBC x10^3 (test code = 1583504179) See_Comment [Automated [employer] ge] The system which generated this result transmitted reference range: 10*3/?L. The reference range was not used to interpret this result as normal/abnormal. GRAN MAT (NEUT) % (test code = 770-8) 89.5 % IMM GRAN % (test code = 2924120531) 0.60 % LYMPH % (test code = 736-9) 2.9 % MONO % (test code = 5905-5) 6.9 % EOS % (test code = 713-8) 0.0 % BASO % (test code = 706-2) 0.1 % GRAN MAT x10^3(ANC) (test code = 0108056143) 6.19 10*3/uL 1.99-6.95 IMM GRAN x10^3 (test code = 4559080069) 0.04 10*3/uL 0.00-0.06 LYMPH x10^3 (test code = 731-0) 0.20 10*3/uL 1.09-3.23 L MONO x10^3 (test code = 742-7) 0.48 10*3/uL 0.36-1.02 EOS x10^3 (test code = 711-2) 0.06-0.53 L BASO x10^3 (test code = 704-7) 0.01-0.09 Lab Interpretation (test code = 33233-1) Abnormal [facility] with Nsty6894-93-13 03:19:45* Test Item Value Reference Range Interpretation Comme nts WBC (test code = 6690-2) 6.92 4.20-10.70 RBC (test code = 789-8) 2.22 4.26-5.52 L HGB (test code = 718-7) 6.9 g/dL 12.2-16.4 L HCT (test code = 4544-3) 20.0 % 38.4-49.3 L MCV (test code = 787-2) 90.1 fL 81.7-95.6 MCH (test code = 785-6) 31.1 pg 26.1-32.7 MCHC (test code = 786-4) 34.5 g/dL 31.2-35.0 RDW-SD (test code = 49257-1) 50.3 fL 38.5-51.6 RDW-CV (test code = 788-0) 15.3 % 12.1-15.4 PLT (test code = 777-3) 111 150-328 L MPV (test code = 55252-7) 11.3 fL 9.8-13.0 IPF % (test code = 7707699630) 5.6 % 1.2-10.7 Platelet count measured by fluorescence method. NRBC/100 WBC (test code = 6930852617) 0.0 0.0-10.0 NRBC x10^3 (test code = 3353743260) See_Comment [Automated messa ge] The system which generated this result transmitted reference range: 10*3/?L. The reference range was not used to interpret this result as normal/abnormal. GRAN MAT (NEUT) % (test code = 770-8) 89.5 % IMM GRAN % (test code = 6991915678) 0.60 % LYMPH % (test code = 736-9) 2.9 % MONO % (test code = 5905-5) 6.9 % EOS % (test code = 713-8) 0.0 % BASO % (test code = 706-2) 0.1 % GRAN MAT x10^3(ANC) (test code = 0782736771) 6.19 10*3/uL 1.99-6.95 IMM GRAN x10^3 (test code = 6984998388) 0.04 10*3/uL 0.00-0.06 LYMPH x10^3 (test code = 731-0) 0.20 10*3/uL 1.09-3.23 L MONO x10^3 (test code = 742-7) 0.48 10*3/uL 0.36-1.02 EOS x10^3 (test code = 711-2) 0.06-0.53 L BASO x10^3 (test code = 704-7) 0.01-0.09 Lab Interpretation (test code = 61544-8) Abnormal [facility] Time / [id number] 03:07:21* Test Item Value Reference Range Interpretation Comme nts PROTIME PATIENT (test code = 5964-2) 12.4 10.1-12.6 INR (test code = 6301-6) 1.1 Normal INR <1.1; Warfarin Therapeutic range 2.0 to 3.0 or 2.5 to 3.5, depending upon the indications. Lab Interpretation (test code = 62906-7) [facility] Test Item Value Reference Range Interpretation Comme nts APTT Patient (test code = 3173-2) -36 Lab Interpretation (test cod e = 18665-0) Normal [facility] / [id number] 03:07:21* Test Item Value Reference Range Interpretation Comme nts PROTIME PATIENT (test code = 5964-2) 12.4 10.1-12.6 INR (test code = 6301-6) 1.1 Normal INR <1.1; Warfarin Therapeutic range 2.0 to 3.0 or 2.5 to 3.5, depending upon the indications. Lab Interpretation (test code = 42606-8) [facility] 03:07:21* Test Item Value Reference Range Interpretation Comme nts APTT Patient (test code = 3173-2) 30 -36 Lab Interpretation (test cod e = 28211-4) Normal [facility] Time / [id number] 03:07:21* Test Item Value Reference Range Interpretation Comme [facility] PROTIME PATIENT (test code = 5964-2) 12.4 10.1-12.6 INR (test code = 6301-6) 1.1 Normal INR <1.1; Warfarin Therapeutic range 2.0 to 3.0 or 2.5 to 3.5, depending upon the indications. Lab Interpretation (test code = 95218-4) Normal [facility]2024-03-13 03:07:21* Test Item Value Reference Range Interpretation Comme [facility] APTT Patient (test code = 3173-2) 30 -36 Lab Interpretation (test cod e = 13696-3) Normal [facility] Packed RBC (in units), 2 Units 2023-07-09 02:54:21* Test Item Value Reference Range Interpretation Comme [facility] Cross Match Result (test code = 4409) Compatible ISBT Blood Type Code (test code = 344066) 7300 Unit Blood Type (test code = 4410) B Pos Unit Number (test code = 4411) [id number] Blood Expiration Date & Time (test code = 726657) 503815047980 Status Information (test code = 4412) Issued Product Identification (test code = 4413) Red Blood Cells Product Code (test code = 4414) [id number] Performed at [facility] Laboratory [facility] Blood [address] [address]Ocbv Free: [phone] No. [id number] [facility] Packed RBC (in units), 2 Units 2023-07-09 02:54:21* Test Item Value Reference Range Interpretation Comme [facility] Cross Match Result (test code = 4409) Compatible ISBT Blood Type Code (test code = 670683) 7300 Unit Blood Type (test code = 4410) B Pos Unit Number (test code = 4411) [id number] Blood Expiration Date & Time (test code = 840734) 809768001992 Status Information (test code = 4412) Issued Product Identification (test code = 4413) Red Blood Cells Product Code (test code = 4414) [id number] Performed at [facility] Laboratory Services [facility] Blood [address] [address]Ncyv Free: [phone] No. [id number] [facility] Packed RBC (in units), 2 Units 2023-07-09 02:54:21* Test Item Value Reference Range Interpretation Comme nts Cross Match Result (test code = 4409) Compatible ISBT Blood Type Code (test code = 672533) 7300 Unit Blood Type (test code = 4410) B Pos Unit Number (test code = 4411) [id number] Blood Expiration Date & Time (test code = 914698) 567036250344 Status Information (test code = 4412) Issued Product Identification (test code = 4413) Red Blood Cells Product Code (test code = 4414) [id number] Performed at [facility] Laboratory [facility] Blood [address] [address]Edat Free: [phone] No. [id number] [facility] Panel 20 + Lactic Acid [id number] 02:50:54* Test Item Value Reference Range Interpretation Comme nts PH (test code = 2) 7.40 7.35-7.45 PCO2 (test code = 5034209182) 30 35-45 L PO2 (test code = 4119607971) 172 80-100 H HCO3 (test code = 5294447561) 18 22-26 L BE (test code = 4402891713) -6.2 -3.0-3.0 L THB (test code = 3210778023) 8.1 g/dL 13.5-18.0 LL %O2HB (test code = 5667102872) 98.6 % 94.0-99.0 %COHB ART (test code = 0294929135) 0.2 % 0.0-1.5 %METHB ART (test code = 0927847058) 0.1 % 0.4-1.5 L VOL%O2 ART (test code = 9469838603) 11.7 % 15.0-23.0 L NA (test code = 3811693967) 137 mmol/L 135-145 K+ (test code = 7603750755) 4.8 mmol/L 3.5-5.0 AC CA IONZ (test code = 2957971484) 4.60 mg/dL 4.50-5.30 GLUCOSE (test code = 5153755023) 195 mg/dL 70-110 H LACTIC ACID (test code = 2588878961) 1.15 mmol/L 0.50-2.20 Lab Interpretation (test cod e = 15712-9) Abnormal [facility] Panel 20 + Lactic Acid [id number] 02:50:54* Test Item Value Reference Range Interpretation Comme nts PH (test code = 2) 7.40 7.35-7.45 PCO2 (test code = 3380938627) 30 35-45 L PO2 (test code = 9865923220) 172 80-100 H HCO3 (test code = 6987420424) 18 22-26 L BE (test code = 0275568466) -6.2 -3.0-3.0 L THB (test code = 2506298202) 8.1 g/dL 13.5-18.0 LL %O2HB (test code = 3444560394) 98.6 % 94.0-99.0 %COHB ART (test code = 6249618724) 0.2 % 0.0-1.5 %METHB ART (test code = 4946182996) 0.1 % 0.4-1.5 L VOL%O2 ART (test code = 1770922691) 11.7 % 15.0-23.0 L NA (test code = 9850850462) 137 mmol/L 135-145 K+ (test code = 2320416586) 4.8 mmol/L 3.5-5.0 AC CA IONZ (test code = 4058773430) 4.60 mg/dL 4.50-5.30 GLUCOSE (test code = 5187990648) 195 mg/dL 70-110 H LACTIC ACID (test code = 8748354685) 1.15 mmol/L 0.50-2.20 Lab Interpretation (test cod e = 02739-4) Abnormal [facility] Panel 20 + Lactic Acid [id number] 02:50:54* Test Item Value Reference Range Interpretation Comme nts PH (test code = 2) 7.40 7.35-7.45 PCO2 (test code = 0250765568) 30 35-45 L PO2 (test code = 3928320204) 172 80-100 H HCO3 (test code = 8044371732) 18 22-26 L BE (test code = 4154574644) -6.2 -3.0-3.0 L THB (test code = 1457804836) 8.1 g/dL 13.5-18.0 LL %O2HB (test code = 2196898001) 98.6 % 94.0-99.0 %COHB ART (test code = 3059200214) 0.2 % 0.0-1.5 %METHB ART (test code = 7289353749) 0.1 % 0.4-1.5 L VOL%O2 ART (test code = 2234123563) 11.7 % 15.0-23.0 L NA (test code = 8092422889) 137 mmol/L 135-145 K+ (test code = 7867324451) 4.8 mmol/L 3.5-5.0 AC CA IONZ (test code = 4599585193) 4.60 mg/dL 4.50-5.30 GLUCOSE (test code = 5343883197) 195 mg/dL 70-110 H LACTIC ACID (test code = 9036467298) 1.15 mmol/L 0.50-2.20 Lab Interpretation (test cod e = 93837-4) Abnormal [facility] Acute Care Tenklsgu8268-76-00 02:01:41* Test Item Value Reference Range Interpretation Comme nts PH (test code = 2) 7.35 7.35-7.45 PCO2 (test code = 6168284000) 35 35-45 PO2 (test code = 5166017870) 428 80-100 H BE (test code = 7284726409) -7.0 -3.0-3.0 L HCO3 (test code = 8583848529) 19 22-26 L %O2HB (test code = 6271919006) 100.0 % 95.0-98.0 H NA (test code = 5044467934) 140 mmol/L 135-145 K+ (test code = 5055124857) 4.9 mmol/L 3.5-5.0 AC CA IONZ (test code = 7021992725) 4.90 mg/dL 4.50-5.30 GLUCOSE (test code = 9426386193) 207 mg/dL 70-110 H AC Hematocrit (test code = 0588846050) 20 40-54 LL THB (test code = 8381685360) 6.8 g/dL 13.5-18.0 LL AC TC02 (test code = 9020399319) 20 mmol/L See_Comment L [Automated messa ge] The system which generated this result transmitted reference range: 23-27 mmol/L. The reference range was not used to interpret this result as normal/abnormal. Lab Interpretation (test code = 69246-5) Abnormal [facility] Cepqowds5112-58-56 02:01:41* Test Item Value Reference Range Interpretation Comme nts PH (test code = 2) 7.35 7.35-7.45 PCO2 (test code = 8102839456) 35 35-45 PO2 (test code = 6810744848) 428 80-100 H BE (test code = 3232190141) -7.0 -3.0-3.0 L HCO3 (test code = 0122702471) 19 22-26 L %O2HB (test code = 3687881394) 100.0 % 95.0-98.0 H NA (test code = 5282470666) 140 mmol/L 135-145 K+ (test code = 2428018025) 4.9 mmol/L 3.5-5.0 AC CA IONZ (test code = 5383751059) 4.90 mg/dL 4.50-5.30 GLUCOSE (test code = 8886211385) 207 mg/dL 70-110 H AC Hematocrit (test code = 2020938069) 20 40-54 LL THB (test code = 0175556461) 6.8 g/dL 13.5-18.0 LL AC TC02 (test code = 2897930126) 20 mmol/L See_Comment L [Automated messa ge] The system which generated this result transmitted reference range: 23-27 mmol/L. The reference range was not used to interpret this result as normal/abnormal. Lab Interpretation (test code = 60122-9) Abnormal [facility] Ewnlmaku4376-82-12 02:01:41* Test Item Value Reference Range Interpretation Comme nts PH (test code = 2) 7.35 7.35-7.45 PCO2 (test code = 3917770385) 35 35-45 PO2 (test code = 0965259405) 428 80-100 H BE (test code = 4218249630) -7.0 -3.0-3.0 L HCO3 (test code = 6103882578) 19 22-26 L %O2HB (test code = 0417799271) 100.0 % 95.0-98.0 H NA (test code = 0731153887) 140 mmol/L 135-145 K+ (test code = 9691471623) 4.9 mmol/L 3.5-5.0 AC CA IONZ (test code = 9724556089) 4.90 mg/dL 4.50-5.30 GLUCOSE (test code = 5164296844) 207 mg/dL 70-110 H AC Hematocrit (test code = 8124629192) 20 40-54 LL THB (test code = 4543490244) 6.8 g/dL 13.5-18.0 LL AC TC02 (test code = 8938028331) 20 mmol/L See_Comment L [Automated messa ge] The system which generated this result transmitted reference range: 23-27 mmol/L. The reference range was not used to interpret this result as normal/abnormal. Lab Interpretation (test code = 46060-7) Abnormal [facility] Platelets (in units): 2 Units~ 2023-07-09 01:38:45* Test Item Value Reference Range Interpretation Comme nts Unit Blood Type (test code = 4410) B Pos ISBT Blood Type Code (test code = 085489) 7300 Unit Number (test code = 4411) [id number] Blood Expiration Date & Time (test code = 852371) 672869603577 Status Information (test code = 4412) Issued Product Identification (test code = 4413) Platelets Product Code (test code = 4414) [id number] Performed at [facility] B Laboratory Services - [facility] Blood [address] [place] [address]Tvwk Free: [phone] No. [id number] [facility] Platelets (in units): 2 Units~ 2023-07-09 01:38:45* Test Item Value Reference Range Interpretation Comme nts Unit Blood Type (test code = 4410) B Pos ISBT Blood Type Code (test code = 088503) 7300 Unit Number (test code = 4411) [id number] Blood Expiration Date & Time (test code = 306497) 317883094523 Status Information (test code = 4412) Issued Product Identification (test code = 4413) Platelets Product Code (test code = 4414) [id number] Performed at [facility] Laboratory [address] Free: [phone] No. [id number] [facility] 2 Units~ 2023-07-09 01:38:45* Test Item Value Reference Range Interpretation Comme nts Unit Blood Type (test code = 4410) B Pos ISBT Blood Type Code (test code = 531244) 7300 Unit Number (test code = 4411) [id number] Blood Expiration Date & Time (test code = 626406) 880759473150 Status Information (test code = 4412) Issued Product Identification (test code = 4413) Platelets Product Code (test code = 4414) [id number] Performed at [address] Free: [phone] No. [id number] [facility] (for use with Heparin Infusion)2023-07-09 00:45:08* Test Item Value Reference Range Interpretation Comme nts APTT Patient (test code = 3173-2) 106 26-36 HH Lab Interpretation (test cod e = 31907-5) [facility] use with [facility] Infusion[facility]2023-07-09 00:45:08* Test Item Value Reference Range Interpretation Comme nts APTT Patient (test code = 3173-2) 106 26-36 HH Lab Interpretation (test cod e = 51092-8) [facility] use with [facility] Infusion[facility]2023-07-09 00:45:08* Test Item Value Reference Range Interpretation Comme nts APTT Patient (test code = 3173-2) 106 26-36 HH Lab Interpretation (test cod e = 52102-5) Abnormal [facility] Metabolic Panel (NA, K, CL, CO2, GLUCOSE, BUN, CREATININE, CA)2023-07-09 00:29:05* Test Item Value Reference Range Interpretation Comme nts NA (test code = 7007381135) 138 mmol/L 135-145 K (test code = 3428143213) 4.8 mmol/L 3.5-5.0 CL (test code = 6652289952) 114 mmol/L 98-108 H CO2 TOTAL (test code = 5556604101) 21 mmol/L 23-31 L AGAP (test code = 0530369402) 3 2-16 BUN (test code = 1661141603) 16 mg/dL 7-23 GLUCOSE (test code = 7624436616) 198 mg/dL 70-110 H CREATININE (test code = 2160-0) 1.39 mg/dL 0.60-1.25 H CALCIUM (test code = 3915180693) 8.5 mg/dL 8.6-10.6 L eGFR (test code = 47927-9) 55.6 mL/min/1.73m2 CKD-EPI eGFR (2020). Assuming creatinine has been stable day-to-day for at least three months, the eGFR indicates Category G3a (45 - 59 mL/min/1.73 m2) Lab Interpretation (test code = 25566-6) [facility] 00:29:05* Test Item Value Reference Range Interpretation Comme nts MAGNESIUM (test code = 2416494392) 3.4 mg/dL 1.7-2.4 H Lab Interpretation (test cod e = 63483-5) [facility]normal [facility]24-[facility]-13 00:29:05* Test Item Value Reference Range Interpretation Comme nts PHOSPHORUS (test code = 0935082026) 3.4 mg/dL 2.5-5.0 Lab Interpretation (test cod e = 78355-9) Normal [facility] Metabolic Panel (NA, K, CL, CO2, GLUCOSE, BUN, CREATININE, CA)2023-07-09 00:29:05* Test Item Value Reference Range Interpretation Comme nts NA (test code = 0330988289) 138 mmol/L 135-145 K (test code = 8161249010) 4.8 mmol/L 3.5-5.0 CL (test code = 0575037763) 114 mmol/L 98-108 H CO2 TOTAL (test code = 0357142535) 21 mmol/L 23-31 L AGAP (test code = 8796806232) 3 2-16 BUN (test code = 4106303663) 16 mg/dL 7-23 GLUCOSE (test code = 2838265572) 198 mg/dL 70-110 H CREATININE (test code = 2160-0) 1.39 mg/dL 0.60-1.25 H CALCIUM (test code = 4212829270) 8.5 mg/dL 8.6-10.6 L eGFR (test code = 36408-1) 55.6 mL/min/1.73m2 CKD-EPI eGFR (2020). Assuming creatinine has been stable day-to-day for at least three months, the eGFR indicates Category G3a (45 - 59 mL/min/1.73 m2) Lab Interpretation (test code = 37664-1) [facility] 00:29:05* Test Item Value Reference Range Interpretation Comme nts MAGNESIUM (test code = 1201728679) 3.4 mg/dL 1.7-2.4 H Lab Interpretation (test cod e = 77885-1) [facility]normal [facility]2024-03-13 00:29:05* Test Item Value Reference Range Interpretation Comme nts PHOSPHORUS (test code = 4587157540) 3.4 mg/dL 2.5-5.0 Lab Interpretation (test cod e = 68099-3) [facility] (NA, K, CL, CO2, GLUCOSE, BUN, CREATININE, CA)2023-07-09 00:29:05* Test Item Value Reference Range Interpretation Comme nts NA (test code = 1733279776) 138 mmol/L 135-145 K (test code = 4975046475) 4.8 mmol/L 3.5-5.0 CL (test code = 9547005048) 114 mmol/L 98-108 H CO2 TOTAL (test code = 6601524410) 21 mmol/L 23-31 L AGAP (test code = 3840225571) 3 2-16 BUN (test code = 2057663320) 16 mg/dL 7-23 GLUCOSE (test code = 9717731531) 198 mg/dL 70-110 H CREATININE (test code = 2160-0) 1.39 mg/dL 0.60-1.25 H CALCIUM (test code = 4306784130) 8.5 mg/dL 8.6-10.6 L eGFR (test code = 31563-5) 55.6 mL/min/1.73m2 CKD-EPI eGFR (2020). Assuming creatinine has been stable day-to-day for at least three months, the eGFR indicates Category G3a (45 - 59 mL/min/1.73 m2) Lab Interpretation (test code = 71368-1) [facility]24-[facility]-13 00:29:05* Test Item Value Reference Range Interpretation Comme nts MAGNESIUM (test code = 8599985313) 3.4 mg/dL 1.7-2.4 H Lab Interpretation (test cod e = 30876-9) [facility]normal [facility]2024-03-13 00:29:05* Test Item Value Reference Range Interpretation Comme nts PHOSPHORUS (test code = 5317748895) 3.4 mg/dL 2.5-5.0 Lab Interpretation (test cod e = 08251-5) [facility]2024-[facility]-13 00:22:39* Test Item Value Reference Range Interpretation Comme nts APTT Patient (test code = 3173-2) 100 26-36 HH Lab Interpretation (test cod e = 87221-5) [facility] / [id number] 00:22:39* Test Item Value Reference Range Interpretation Comme nts PROTIME PATIENT (test code = 5964-2) 12.5 10.1-12.6 INR (test code = 6301-6) 1.1 Normal INR <1.1; Warfarin Therapeutic range 2.0 to 3.0 or 2.5 to 3.5, depending upon the indications. Lab Interpretation (test code = 78362-8) [facility] Test Item Value Reference Range Interpretation Comme nts APTT Patient (test code = 3173-2) 100 26-36 HH Lab Interpretation (test cod e = 51446-5) [facility]normal [facility] / [id number] 00:22:39* Test Item Value Reference Range Interpretation Comme nts PROTIME PATIENT (test code = 5964-2) 12.5 10.1-12.6 INR (test code = 6301-6) 1.1 Normal INR <1.1; Warfarin Therapeutic range 2.0 to 3.0 or 2.5 to 3.5, depending upon the indications. Lab Interpretation (test code = 39946-8) [facility]* Test Item Value Reference Range Interpretation Comme nts APTT Patient (test code = 3173-2) 100 26-36 HH Lab Interpretation (test cod e = 83887-0) [facility]normal [facility] / [id number] 00:22:39* Test Item Value Reference Range Interpretation Comme nts PROTIME PATIENT (test code = 5964-2) 12.5 10.1-12.6 INR (test code = 6301-6) 1.1 Normal INR <1.1; Warfarin Therapeutic range 2.0 to 3.0 or 2.5 to 3.5, depending upon the indications. Lab Interpretation (test code = 61375-4) Normal [facility]isco[facility] with Urzi1979-95-34 00:15:47* Test Item Value Reference Range Interpretation Comme nts WBC (test code = 6690-2) 8.10 4.20-10.70 RBC (test code = 789-8) 2.42 4.26-5.52 L HGB (test code = 718-7) 7.5 g/dL 12.2-16.4 L HCT (test code = 4544-3) 22.9 % 38.4-49.3 L MCV (test code = 787-2) 94.6 fL 81.7-95.6 MCH (test code = 785-6) 31.0 pg 26.1-32.7 MCHC (test code = 786-4) 32.8 g/dL 31.2-35.0 RDW-SD (test code = 79648-5) 50.1 fL 38.5-51.6 RDW-CV (test code = 788-0) 14.5 % 12.1-15.4 PLT (test code = 777-3) 103 150-328 L MPV (test code = 18617-0) 11.1 fL 9.8-13.0 IPF % (test code = 2336843287) 5.5 % 1.2-10.7 Platelet count measured by fluorescence method. NRBC/100 WBC (test code = 8182096427) 0.0 0.0-10.0 NRBC x10^3 (test code = 9869437102) See_Comment [Automated messa ge] The system which generated this result transmitted reference range: 10*3/?L. The reference range was not used to interpret this result as normal/abnormal. GRAN MAT (NEUT) % (test code = 770-8) 88.8 % IMM GRAN % (test code = 6699974078) 0.40 % LYMPH % (test code = 736-9) 3.3 % MONO % (test code = 5905-5) 7.4 % EOS % (test code = 713-8) 0.0 % BASO % (test code = 706-2) 0.1 % GRAN MAT x10^3(ANC) (test code = 1360598693) 7.19 10*3/uL 1.99-6.95 H IMM GRAN x10^3 (test code = 0659702103) 0.03 10*3/uL 0.00-0.06 LYMPH x10^3 (test code = 731-0) 0.27 10*3/uL 1.09-3.23 L MONO x10^3 (test code = 742-7) 0.60 10*3/uL 0.36-1.02 EOS x10^3 (test code = 711-2) 0.06-0.53 L BASO x10^3 (test code = 704-7) 0.01-0.09 Lab Interpretation (test code = 21788-0) Abnormal [facility] with Nehm8793-97-97 00:15:47* Test Item Value Reference Range Interpretation Comme nts WBC (test code = 6690-2) 8.10 4.20-10.70 RBC (test code = 789-8) 2.42 4.26-5.52 L HGB (test code = 718-7) 7.5 g/dL 12.2-16.4 L HCT (test code = 4544-3) 22.9 % 38.4-49.3 L MCV (test code = 787-2) 94.6 fL 81.7-95.6 MCH (test code = 785-6) 31.0 pg 26.1-32.7 MCHC (test code = 786-4) 32.8 g/dL 31.2-35.0 RDW-SD (test code = 46081-1) 50.1 fL 38.5-51.6 RDW-CV (test code = 788-0) 14.5 % 12.1-15.4 PLT (test code = 777-3) 103 150-328 L MPV (test code = 64199-0) 11.1 fL 9.8-13.0 IPF % (test code = 2718265480) 5.5 % 1.2-10.7 Platelet count measured by fluorescence method. NRBC/100 WBC (test code = 2518270888) 0.0 0.0-10.0 NRBC x10^3 (test code = 8602183087) See_Comment [Automated [employer] ge] The system which generated this result transmitted reference range: 10*3/?L. The reference range was not used to interpret this result as normal/abnormal. GRAN MAT (NEUT) % (test code = 770-8) 88.8 % IMM GRAN % (test code = 8960491867) 0.40 % LYMPH % (test code = 736-9) 3.3 % MONO % (test code = 5905-5) 7.4 % EOS % (test code = 713-8) 0.0 % BASO % (test code = 706-2) 0.1 % GRAN MAT x10^3(ANC) (test code = 8529918478) 7.19 10*3/uL 1.99-6.95 H IMM GRAN x10^3 (test code = 3296808587) 0.03 10*3/uL 0.00-0.06 LYMPH x10^3 (test code = 731-0) 0.27 10*3/uL 1.09-3.23 L MONO x10^3 (test code = 742-7) 0.60 10*3/uL 0.36-1.02 EOS x10^3 (test code = 711-2) 0.06-0.53 L BASO x10^3 (test code = 704-7) 0.01-0.09 Lab Interpretation (test code = 26559-8) Abnormal [facility] with Oafx6363-91-13 00:15:47* Test Item Value Reference Range Interpretation Comme nts WBC (test code = 6690-2) 8.10 4.20-10.70 RBC (test code = 789-8) 2.42 4.26-5.52 L HGB (test code = 718-7) 7.5 g/dL 12.2-16.4 L HCT (test code = 4544-3) 22.9 % 38.4-49.3 L MCV (test code = 787-2) 94.6 fL 81.7-95.6 MCH (test code = 785-6) 31.0 pg 26.1-32.7 MCHC (test code = 786-4) 32.8 g/dL 31.2-35.0 RDW-SD (test code = 33050-4) 50.1 fL 38.5-51.6 RDW-CV (test code = 788-0) 14.5 % 12.1-15.4 PLT (test code = 777-3) 103 150-328 L MPV (test code = 13182-6) 11.1 fL 9.8-13.0 IPF % (test code = 4721825096) 5.5 % 1.2-10.7 Platelet count measured by fluorescence method. NRBC/100 WBC (test code = 3111603240) 0.0 0.0-10.0 NRBC x10^3 (test code = 8405905631) See_Comment [Automated messa ge] The system which generated this result transmitted reference range: 10*3/?L. The reference range was not used to interpret this result as normal/abnormal. GRAN MAT (NEUT) % (test code = 770-8) 88.8 % IMM GRAN % (test code = 6479773863) 0.40 % LYMPH % (test code = 736-9) 3.3 % MONO % (test code = 5905-5) 7.4 % EOS % (test code = 713-8) 0.0 % BASO % (test code = 706-2) 0.1 % GRAN MAT x10^3(ANC) (test code = 1775862620) 7.19 10*3/uL 1.99-6.95 H IMM GRAN x10^3 (test code = 0992712726) 0.03 10*3/uL 0.00-0.06 LYMPH x10^3 (test code = 731-0) 0.27 10*3/uL 1.09-3.23 L MONO x10^3 (test code = 742-7) 0.60 10*3/uL 0.36-1.02 EOS x10^3 (test code = 711-2) 0.06-0.53 L BASO x10^3 (test code = 704-7) 0.01-0.09 Lab Interpretation (test code = 04392-4) [facility]24[facility] 00:08:25* Test Item Value Reference Range Interpretation Comme nts Fibrinogen (test code = 6157771830) 188 mg/dL 167-453 Lab Interpretation (test cod e = 40011-9) Normal [facility]2024-[facility]-13 00:08:25* Test Item Value Reference Range Interpretation Comme nts Fibrinogen (test code = 1340974500) 188 mg/dL 167-453 Lab Interpretation (test cod e = 37044-6) Normal [facility]2024-[facility]-13 00:08:25* Test Item Value Reference Range Interpretation Comme nts Fibrinogen (test code = 7391163811) 188 mg/dL 167-453 Lab Interpretation (test cod e = 51025-9) Normal [facility] 1 [id number] 23:32:13EXAM: XR ABDOMEN 1 VW HISTORY: 68 years-old Male; Provided indication: OGT placement . TECHNIQUE: Frontal view of the abdomen and pelvis COM[facility]ISON: [facility]23[facility]08 23:32:13EXAM: XR ABDOMEN 1 VW HISTORY: 68 years-old Male; Provided indication: OGT placement . TECHNIQUE: Frontal view of the abdomen and pelvis COMPARISON: [facility] x[facility] the [facility]Un[facility] [id number] 23:32:13EXAM: XR ABDOMEN 1 VW HISTORY: 68 years-old Male; Provided indication: OGT placement . TECHNIQUE: Frontal view of the abdomen and pelvis COMPARISON: Chest x-ray performed on the same date [facility] 1 View (on admission)2023-07-08 21:10:42 EXAM: XR CHEST 1 VW COMPARISON: 07/07/2023 HISTORY: s/p open heart surgery FINDINGS: The ET tube tipoverlies the upper trachealThe Montezuma-Cadence catheter tip projects over the right pulmonary arteryLeft central line tip terminates at the level of left innominate vein/SVCjunctionLeft chest tube tip projects over the left costophrenic angle. Right chesttube tip projected over the diaphragm.2 drains tips overlie the mid to lower mediastinum.A gastric tube tip projects over the gastroesophageal junction. Considerretraction or advancedPacer wires are noted. Lungs: The lung volumes are ?normal . Wykjp-zs-qqxvtsss left pleuraleffusion and moderate left basilar predominant atelectasis. Heart/Mediastinum: Stable global cardiomegaly. Calcified aorta. Post CABGchanges.. Bones and soft tissues: Sternotomy wires in satisfactory alignment.External defibrillator electrodes noted projecting of the lower chest [facility] 1 View (on admission)2023-07-08 21:10:42 EXAM: XR CHEST 1 VW COMPARISON: 07/07/2023 HISTORY: s/p open heart surgery FINDINGS: The ET tube tipoverlies the upper trachealThe Montezuma-Cadence catheter tip projects over the right pulmonary arteryLeft central line tip terminates at the level of left innominate vein/SVCjunctionLeft chest tube tip projects over the left costophrenic angle. Right chesttube tip projected over the diaphragm.2 drains tips overlie the mid to lower mediastinum.A gastric tube tip projects over the gastroesophageal junction. Considerretraction or advancedPacer wires are noted. Lungs: The lung volumes are ?normal . Vvydz-nc-nnxmoxos left pleuraleffusion and moderate left basilar predominant atelectasis. Heart/Mediastinum: Stable global cardiomegaly. Calcified aorta. Post CABGchanges.. Bones and soft tissues: Sternotomy wires in satisfactory alignment.External defibrillator electrodes noted projecting of the lower chest [facility] 1 View (on admission)2023-07-08 21:10:42 EXAM: XR CHEST 1 VW COMPARISON: 07/07/2023 HISTORY: s/p open heart surgery FINDINGS: The ET tube tipoverlies the upper trachealThe Montezuma-Cadence catheter tip projects over the right pulmonary arteryLeft central line tip terminates at the level of left innominate vein/SVCjunctionLeft chest tube tip projects over the left costophrenic angle. Right chesttube tip projected over the diaphragm.2 drains tips overlie the mid to lower mediastinum.A gastric tube tip projects over the gastroesophageal junction. Considerretraction or advancedPacer wires are noted. Lungs: The lung volumes are ?normal . Zkquy-st-huexptaw left pleuraleffusion and moderate left basilar predominant atelectasis. Heart/Mediastinum: Stable global cardiomegaly. Calcified aorta. Post CABGchanges.. Bones and soft tissues: Sternotomy wires in satisfactory alignment.External defibrillator electrodes noted projecting of the lower chest [facility] with Pwag3142-65-13 20:26:53* Test Item Value Reference Range Interpretation Comme nts WBC (test code = 6690-2) 7.43 4.20-10.70 RBC (test code = 789-8) 2.62 4.26-5.52 L HGB (test code = 718-7) 8.2 g/dL 12.2-16.4 L HCT (test code = 4544-3) 24.6 % 38.4-49.3 L MCV (test code = 787-2) 93.9 fL 81.7-95.6 MCH (test code = 785-6) 31.3 pg 26.1-32.7 MCHC (test code = 786-4) 33.3 g/dL 31.2-35.0 RDW-SD (test code = 92458-7) 49.1 fL 38.5-51.6 RDW-CV (test code = 788-0) 14.4 % 12.1-15.4 PLT (test code = 777-3) 91 150-328 L MPV (test code = 19610-4) 11.9 fL 9.8-13.0 IPF % (test code = 1246088565) 6.2 % 1.2-10.7 Platelet count measured by fluorescence method. NRBC/100 WBC (test code = 6122085095) 0.0 0.0-10.0 NRBC x10^3 (test code = 4168908976) See_Comment [Automated [employer]a ge] The system which generated this result transmitted reference range: 10*3/?L. The reference range was not used to interpret this result as normal/abnormal. GRAN MAT (NEUT) % (test code = 770-8) 88.3 % IMM GRAN % (test code = 9490866542) 1.20 % LYMPH % (test code = 736-9) 3.1 % MONO % (test code = 5905-5) 6.9 % EOS % (test code = 713-8) 0.4 % BASO % (test code = 706-2) 0.1 % GRAN MAT x10^3(ANC) (test code = 4270142690) 6.56 10*3/uL 1.99-6.95 IMM GRAN x10^3 (test code = 9733229037) 0.09 10*3/uL 0.00-0.06 H LYMPH x10^3 (test code = 731-0) 0.23 10*3/uL 1.09-3.23 L MONO x10^3 (test code = 742-7) 0.51 10*3/uL 0.36-1.02 EOS x10^3 (test code = 711-2) 0.03 10*3/uL 0.06-0.53 L BASO x10^3 (test code = 704-7) 0.01-0.09 Lab Interpretation (test code = 68134-7) Abnormal [facility] with Vqhv0962-12-59 20:26:53* Test Item Value Reference Range Interpretation Comme nts WBC (test code = 6690-2) 7.43 4.20-10.70 RBC (test code = 789-8) 2.62 4.26-5.52 L HGB (test code = 718-7) 8.2 g/dL 12.2-16.4 L HCT (test code = 4544-3) 24.6 % 38.4-49.3 L MCV (test code = 787-2) 93.9 fL 81.7-95.6 MCH (test code = 785-6) 31.3 pg 26.1-32.7 MCHC (test code = 786-4) 33.3 g/dL 31.2-35.0 RDW-SD (test code = 89303-3) 49.1 fL 38.5-51.6 RDW-CV (test code = 788-0) 14.4 % 12.1-15.4 PLT (test code = 777-3) 91 150-328 L MPV (test code = 56548-7) 11.9 fL 9.8-13.0 IPF % (test code = 4228635766) 6.2 % 1.2-10.7 Platelet count measured by fluorescence method. NRBC/100 WBC (test code = 7550265462) 0.0 0.0-10.0 NRBC x10^3 (test code = 5850484371) See_Comment [Automated [employer] ge] The system which generated this result transmitted reference range: 10*3/?L. The reference range was not used to interpret this result as normal/abnormal. GRAN MAT (NEUT) % (test code = 770-8) 88.3 % IMM GRAN % (test code = 8930890833) 1.20 % LYMPH % (test code = 736-9) 3.1 % MONO % (test code = 5905-5) 6.9 % EOS % (test code = 713-8) 0.4 % BASO % (test code = 706-2) 0.1 % GRAN MAT x10^3(ANC) (test code = 4781086626) 6.56 10*3/uL 1.99-6.95 IMM GRAN x10^3 (test code = 1923590196) 0.09 10*3/uL 0.00-0.06 H LYMPH x10^3 (test code = 731-0) 0.23 10*3/uL 1.09-3.23 L MONO x10^3 (test code = 742-7) 0.51 10*3/uL 0.36-1.02 EOS x10^3 (test code = 711-2) 0.03 10*3/uL 0.06-0.53 L BASO x10^3 (test code = 704-7) 0.01-0.09 Lab Interpretation (test code = 04543-6) Abnormal [facility] with [id number] 20:26:53* Test Item Value Reference Range Interpretation Comme nts WBC (test code = 6690-2) 7.43 4.20-10.70 RBC (test code = 789-8) 2.62 4.26-5.52 L HGB (test code = 718-7) 8.2 g/dL 12.2-16.4 L HCT (test code = 4544-3) 24.6 % 38.4-49.3 L MCV (test code = 787-2) 93.9 fL 81.7-95.6 MCH (test code = 785-6) 31.3 pg 26.1-32.7 MCHC (test code = 786-4) 33.3 g/dL 31.2-35.0 RDW-SD (test code = 29625-5) 49.1 fL 38.5-51.6 RDW-CV (test code = 788-0) 14.4 % 12.1-15.4 PLT (test code = 777-3) 91 150-328 L MPV (test code = 70537-3) 11.9 fL 9.8-13.0 IPF % (test code = 5298297853) 6.2 % 1.2-10.7 Platelet count measured by fluorescence method. NRBC/100 WBC (test code = 4710507802) 0.0 0.0-10.0 NRBC x10^3 (test code = 6840025579) See_Comment [Automated [employer] ge] The system which generated this result transmitted reference range: 10*3/?L. The reference range was not used to interpret this result as normal/abnormal. GRAN MAT (NEUT) % (test code = 770-8) 88.3 % IMM GRAN % (test code = 0585868744) 1.20 % LYMPH % (test code = 736-9) 3.1 % MONO % (test code = 5905-5) 6.9 % EOS % (test code = 713-8) 0.4 % BASO % (test code = 706-2) 0.1 % GRAN MAT x10^3(ANC) (test code = 5462920933) 6.56 10*3/uL 1.99-6.95 IMM GRAN x10^3 (test code = 4404228905) 0.09 10*3/uL 0.00-0.06 H LYMPH x10^3 (test code = 731-0) 0.23 10*3/uL 1.09-3.23 L MONO x10^3 (test code = 742-7) 0.51 10*3/uL 0.36-1.02 EOS x10^3 (test code = 711-2) 0.03 10*3/uL 0.06-0.53 L BASO x10^3 (test code = 704-7) 0.01-0.09 Lab Interpretation (test code = 09553-7) [facility] 20:00:06* Test Item Value Reference Range Interpretation Comme [facility] APTT Patient (test code = 3173-2) 52 26-36 H Lab Interpretation (test cod e = 42708-7) [facility]normal [facility]2024-[facility]-12 20:00:06* Test Item Value Reference Range Interpretation Comme [facility] Fibrinogen (test code = 3806893562) 188 mg/dL 167-453 Lab Interpretation (test cod e = 28650-3) Normal [facility]iscoProthrom[facility] / [id number] 20:00:06* Test Item Value Reference Range Interpretation Comme [facility] PROTIME PATIENT (test code = 5964-2) 13.0 10.1-12.6 H INR (test code = 6301-6) 1.1 Normal INR <1.1; Warfarin Therapeutic range 2.0 to 3.0 or 2.5 to 3.5, depending upon the indications. Lab Interpretation (test code = 87493-9) [facility]-12 20:00:06* Test Item Value Reference Range Interpretation Comme nts APTT Patient (test code = 3173-2) 52 26-36 H Lab Interpretation (test cod e = 22377-3) [facility]normal [facility]2024-[facility]-12 20:00:06* Test Item Value Reference Range Interpretation Comme nts Fibrinogen (test code = 0146119662) 188 mg/dL 167-453 Lab Interpretation (test cod e = 29928-4) [facility] / [id number] 20:00:06* Test Item Value Reference Range Interpretation Comme nts PROTIME PATIENT (test code = 5964-2) 13.0 10.1-12.6 H INR (test code = 6301-6) 1.1 Normal INR <1.1; Warfarin Therapeutic range 2.0 to 3.0 or 2.5 to 3.5, depending upon the indications. Lab Interpretation (test code = 90124-6) Abnormal [place] 94160024-03-12 20:00:06* Test Item Value Reference Range Interpretation Comme nts APTT Patient (test code = 3173-2) 52 26-36 H Lab Interpretation (test cod e = 75451-3) [facility]normal [facility]24-[facility]-12 20:00:06* Test Item Value Reference Range Interpretation Comme nts Fibrinogen (test code = 2011548187) 188 mg/dL 167-453 Lab Interpretation (test cod e = 13926-6) Normal [facility]iscoPro[facility] / [id number] 20:00:06* Test Item Value Reference Range Interpretation Comme nts PROTIME PATIENT (test code = 5964-2) 13.0 10.1-12.6 H INR (test code = 6301-6) 1.1 Normal INR <1.1; Warfarin Therapeutic range 2.0 to 3.0 or 2.5 to 3.5, depending upon the indications. Lab Interpretation (test code = 98681-5) Abnormal [facility]iscoMagnesium2024-03-12 19:49:16* Test Item Value Reference Range Interpretation Comme nts MAGNESIUM (test code = 1849558346) 4.3 mg/dL 1.7-2.4 H Lab Interpretation (test cod e = 60336-5) Abnormal [facility]isco[facility]2024-[facility]-12 19:49:16* Test Item Value Reference Range Interpretation Comme nts MAGNESIUM (test code = 3334646880) 4.3 mg/dL 1.7-2.4 H Lab Interpretation (test cod e = 57913-9) Abnormal [facility]isco[facility]esium2024-03-12 19:49:16* Test Item Value Reference Range Interpretation Comme nts MAGNESIUM (test code = 6207752979) 4.3 mg/dL 1.7-2.4 H Lab Interpretation (test cod e = 30779-6) [facility] (NA, K, CL, CO2, GLUCOSE, BUN, CREATININE, CA)2023-07-08 19:48:44* Test Item Value Reference Range Interpretation Comme nts NA (test code = 6202912149) 137 mmol/L 135-145 K (test code = 7907012913) 5.1 mmol/L 3.5-5.0 H CL (test code = 6832638318) 114 mmol/L 98-108 H CO2 TOTAL (test code = 7983938131) 20 mmol/L 23-31 L AGAP (test code = 8369030986) 3 2-16 BUN (test code = 2742069553) 14 mg/dL 7-23 GLUCOSE (test code = 1125244129) 165 mg/dL 70-110 H CREATININE (test code = 2160-0) 1.20 mg/dL 0.60-1.25 CALCIUM (test code = 2854032389) 8.6 mg/dL 8.6-10.6 eGFR (test code = 90058-8) 66.3 mL/min/1.73m2 CKD-EPI eGFR (2020). Assuming creatinine has been stable day-to-day for at least three months, the eGFR indicates Category G2 (60 - 89 mL/min/1.73 m2) Lab Interpretation (test code = 34423-0) [facility] 19:48:44* Test Item Value Reference Range Interpretation Comme nts PHOSPHORUS (test code = 6759393254) 2.2 mg/dL 2.5-5.0 L Lab Interpretation (test cod e = 34097-7) Abnormal [facility] Metabolic Panel (NA, K, CL, CO2, GLUCOSE, BUN, CREATININE, CA)2023-07-08 19:48:44* Test Item Value Reference Range Interpretation Comme nts NA (test code = 8378651827) 137 mmol/L 135-145 K (test code = 4378572171) 5.1 mmol/L 3.5-5.0 H CL (test code = 9313535342) 114 mmol/L 98-108 H CO2 TOTAL (test code = 6210441842) 20 mmol/L 23-31 L AGAP (test code = 9339721218) 3 2-16 BUN (test code = 7517379692) 14 mg/dL 7-23 GLUCOSE (test code = 3995198913) 165 mg/dL 70-110 H CREATININE (test code = 2160-0) 1.20 mg/dL 0.60-1.25 CALCIUM (test code = 4918315806) 8.6 mg/dL 8.6-10.6 eGFR (test code = 79829-7) 66.3 mL/min/1.73m2 CKD-EPI eGFR (2020). Assuming creatinine has been stable day-to-day for at least three months, the eGFR indicates Category G2 (60 - 89 mL/min/1.73 m2) Lab Interpretation (test code = 47711-0) [facility] 19:48:44* Test Item Value Reference Range Interpretation Comme nts PHOSPHORUS (test code = 6634814973) 2.2 mg/dL 2.5-5.0 L Lab Interpretation (test cod e = 39795-7) Abnormal [facility] Metabolic Panel (NA, K, CL, CO2, GLUCOSE, BUN, CREATININE, CA)2023-07-08 19:48:44* Test Item Value Reference Range Interpretation Comme nts NA (test code = 0159357058) 137 mmol/L 135-145 K (test code = 0742291186) 5.1 mmol/L 3.5-5.0 H CL (test code = 2103945595) 114 mmol/L 98-108 H CO2 TOTAL (test code = 3079804641) 20 mmol/L 23-31 L AGAP (test code = 9518952583) 3 2-16 BUN (test code = 6515709367) 14 mg/dL 7-23 GLUCOSE (test code = 1599469131) 165 mg/dL 70-110 H CREATININE (test code = 2160-0) 1.20 mg/dL 0.60-1.25 CALCIUM (test code = 5334709029) 8.6 mg/dL 8.6-10.6 eGFR (test code = 51206-3) 66.3 mL/min/1.73m2 CKD-EPI eGFR (2020). Assuming creatinine has been stable day-to-day for at least three months, the eGFR indicates Category G2 (60 - 89 mL/min/1.73 m2) Lab Interpretation (test code = 59168-7) [facility]48:44* Test Item Value Reference Range Interpretation Comme nts PHOSPHORUS (test code = 4580785462) 2.2 mg/dL 2.5-5.0 L Lab Interpretation (test cod e = 00219-1) [facility] + Lactic Acid [id number] 19:22:31* Test Item Value Reference Range Interpretation Comme nts PH (test code = 2) 7.41 7.35-7.45 PCO2 (test code = 1829663905) 31 35-45 L PO2 (test code = 6277418146) 126 80-100 H HCO3 (test code = 8158233701) 20 22-26 L BE (test code = 2548140630) -4.8 -3.0-3.0 L THB (test code = 6066422861) 9.4 g/dL 13.5-18.0 L %O2HB (test code = 1299002299) 98.0 % 94.0-99.0 %COHB ART (test code = 7758827770) 0.3 % 0.0-1.5 %METHB ART (test code = 1766345544) 0.3 % 0.4-1.5 L VOL%O2 ART (test code = 1617677514) 13.2 % 15.0-23.0 L NA (test code = 0749462888) 137 mmol/L 135-145 K+ (test code = 7030707317) 5.0 mmol/L 3.5-5.0 AC CA IONZ (test code = 7311028200) 4.90 mg/dL 4.50-5.30 GLUCOSE (test code = 7577611837) 165 mg/dL 70-110 H LACTIC ACID (test code = 9658265139) 1.11 mmol/L 0.50-2.20 Lab Interpretation (test cod e = 15700-3) [facility] + Lactic Acid [id number] 19:22:31* Test Item Value Reference Range Interpretation Comme nts PH (test code = 2) 7.41 7.35-7.45 PCO2 (test code = 9086015529) 31 35-45 L PO2 (test code = 3474058922) 126 80-100 H HCO3 (test code = 8977067573) 20 22-26 L BE (test code = 3837254652) -4.8 -3.0-3.0 L THB (test code = 9689090486) 9.4 g/dL 13.5-18.0 L %O2HB (test code = 6781327744) 98.0 % 94.0-99.0 %COHB ART (test code = 4063998863) 0.3 % 0.0-1.5 %METHB ART (test code = 4583787133) 0.3 % 0.4-1.5 L VOL%O2 ART (test code = 3216725311) 13.2 % 15.0-23.0 L NA (test code = 9734685542) 137 mmol/L 135-145 K+ (test code = 4424219009) 5.0 mmol/L 3.5-5.0 AC CA IONZ (test code = 0970356972) 4.90 mg/dL 4.50-5.30 GLUCOSE (test code = 7444525425) 165 mg/dL 70-110 H LACTIC ACID (test code = 5638785109) 1.11 mmol/L 0.50-2.20 Lab Interpretation (test cod e = 74870-9) [facility] Lactic Acid [id number] 19:22:31* Test Item Value Reference Range Interpretation Comme nts PH (test code = 2) 7.41 7.35-7.45 PCO2 (test code = 6716602017) 31 35-45 L PO2 (test code = 8227021917) 126 80-100 H HCO3 (test code = 8615672452) 20 22-26 L BE (test code = 7229246971) -4.8 -3.0-3.0 L THB (test code = 3322928024) 9.4 g/dL 13.5-18.0 L %O2HB (test code = 6848981451) 98.0 % 94.0-99.0 %COHB ART (test code = 4842901704) 0.3 % 0.0-1.5 %METHB ART (test code = 1711613991) 0.3 % 0.4-1.5 L VOL%O2 ART (test code = 5243163963) 13.2 % 15.0-23.0 L NA (test code = 6868892095) 137 mmol/L 135-145 K+ (test code = 6447496372) 5.0 mmol/L 3.5-5.0 AC CA IONZ (test code = 7902100152) 4.90 mg/dL 4.50-5.30 GLUCOSE (test code = 2769906184) 165 mg/dL 70-110 H LACTIC ACID (test code = 7374398284) 1.11 mmol/L 0.50-2.20 Lab Interpretation (test cod e = 32498-3) Abnormal [facility] Hsixqwjv7475-17-81 18:02:28* Test Item Value Reference Range Interpretation Comme nts PH (test code = 2) 7.40 7.35-7.45 PCO2 (test code = 3882588347) 32 35-45 L PO2 (test code = 9684770591) 621 80-100 H BE (test code = 6810976336) -5.0 -3.0-3.0 L HCO3 (test code = 4162632613) 19 22-26 L %O2HB (test code = 8512841002) 100.0 % 95.0-98.0 H NA (test code = 8095803684) 137 mmol/L 135-145 K+ (test code = 0221722229) 4.2 mmol/L 3.5-5.0 AC CA IONZ (test code = 9885453415) 3.90 mg/dL 4.50-5.30 L GLUCOSE (test code = 1660790213) 110 mg/dL 70-110 AC Hematocrit (test code = 1344582652) 21 40-54 LL THB (test code = 3098545535) 7.1 g/dL 13.5-18.0 LL AC TC02 (test code = 1454389691) 20 mmol/L See_Comment L [Automated messa ge] The system which generated this result transmitted reference range: 23-27 mmol/L. The reference range was not used to interpret this result as normal/abnormal. Lab Interpretation (test code = 61013-2) Abnormal [facility] Rdkbqcjq9707-50-49 18:02:28* Test Item Value Reference Range Interpretation Comme nts PH (test code = 2) 7.36 7.35-7.45 PCO2 (test code = 7810600191) 41 35-45 PO2 (test code = 7039899683) 307 80-100 H BE (test code = 3876586325) -2.0 -3.0-3.0 HCO3 (test code = 8068715597) 23 22-26 %O2HB (test code = 3930130410) 100.0 % 95.0-98.0 H NA (test code = 1186256916) 136 mmol/L 135-145 K+ (test code = 4943562509) 5.6 mmol/L 3.5-5.0 H AC CA IONZ (test code = 0245601649) 4.90 mg/dL 4.50-5.30 GLUCOSE (test code = 7463525349) 156 mg/dL 70-110 H AC Hematocrit (test code = 8848959029) 27 40-54 L THB (test code = 9119071152) 9.2 g/dL 13.5-18.0 L AC TC02 (test code = 2646161155) 24 mmol/L See_Comment [Automated messa ge] The system which generated this result transmitted reference range: 23-27 mmol/L. The reference range was not used to interpret this result as normal/abnormal. Lab Interpretation (test code = 16044-6) Abnormal [facility] Cotyiehj1580-19-90 18:02:28* Test Item Value Reference Range Interpretation Comme nts PH (test code = 2) 7.33 7.35-7.45 L PCO2 (test code = 3335858684) 42 35-45 PO2 (test code = 9981089223) 265 80-100 H BE (test code = 7654123956) -4.0 -3.0-3.0 L HCO3 (test code = 1908998968) 22 22-26 %O2HB (test code = 2754718186) 100.0 % 95.0-98.0 H NA (test code = 6774700472) 136 mmol/L 135-145 K+ (test code = 5648978835) 6.3 mmol/L 3.5-5.0 HH AC CA IONZ (test code = 6609218677) 5.10 mg/dL 4.50-5.30 GLUCOSE (test code = 0398000028) 178 mg/dL 70-110 H AC Hematocrit (test code = 1688919274) 28 40-54 L THB (test code = 8529045904) 9.5 g/dL 13.5-18.0 L AC TC02 (test code = 8570502567) 23 mmol/L See_Comment [Automated messa ge] The system which generated this result transmitted reference range: 23-27 mmol/L. The reference range was not used to interpret this result as normal/abnormal. Lab Interpretation (test code = 44755-7) Abnormal [facility] Uyjtpzhg4316-92-66 18:02:28* Test Item Value Reference Range Interpretation Comme nts PH (test code = 2) 7.37 7.35-7.45 PCO2 (test code = 2805414397) 38 35-45 PO2 (test code = 9413715862) 283 80-100 H BE (test code = 4403700982) -4.0 -3.0-3.0 L HCO3 (test code = 0380319172) 22 22-26 %O2HB (test code = 7668928805) 100.0 % 95.0-98.0 H NA (test code = 7473909448) 137 mmol/L 135-145 K+ (test code = 7439073733) 6.1 mmol/L 3.5-5.0 HH AC CA IONZ (test code = 6299195946) 4.90 mg/dL 4.50-5.30 GLUCOSE (test code = 2891888206) 198 mg/dL 70-110 H AC Hematocrit (test code = 1671795968) 27 40-54 L THB (test code = 3785103611) 9.2 g/dL 13.5-18.0 L AC TC02 (test code = 5469449276) 23 mmol/L See_Comment [Automated messa ge] The system which generated this result transmitted reference range: 23-27 mmol/L. The reference range was not used to interpret this result as normal/abnormal. Lab Interpretation (test code = 60426-0) Abnormal [facility] Hsnbnpbg3280-54-31 18:02:28* Test Item Value Reference Range Interpretation Comme nts PH (test code = 2) 7.37 7.35-7.45 PCO2 (test code = 4751654612) 34 35-45 L PO2 (test code = 9642000139) 283 80-100 H BE (test code = 8188486130) -5.0 -3.0-3.0 L HCO3 (test code = 1426083122) 20 22-26 L %O2HB (test code = 6748112185) 100.0 % 95.0-98.0 H NA (test code = 1003394192) 137 mmol/L 135-145 K+ (test code = 4083770215) 6.4 mmol/L 3.5-5.0 HH AC CA IONZ (test code = 1170469185) 4.80 mg/dL 4.50-5.30 GLUCOSE (test code = 8706931437) 183 mg/dL 70-110 H AC Hematocrit (test code = 6748841453) 26 40-54 L THB (test code = 2797576320) 8.8 g/dL 13.5-18.0 L AC TC02 (test code = 1116691534) 21 mmol/L See_Comment L [Automated messa ge] The system which generated this result transmitted reference range: 23-27 mmol/L. The reference range was not used to interpret this result as normal/abnormal. Lab Interpretation (test code = 71547-5) Abnormal [facility] Ewhhexnr2581-90-22 18:02:28* Test Item Value Reference Range Interpretation Comme nts PH (test code = 2) 7.31 7.35-7.45 L PCO2 (test code = 4961350190) 38 35-45 PO2 (test code = 7013801082) 154 80-100 H BE (test code = 2235396598) -7.0 -3.0-3.0 L HCO3 (test code = 1227959564) 19 22-26 L %O2HB (test code = 3074454327) 99.0 % 95.0-98.0 H NA (test code = 4391206979) 139 mmol/L 135-145 K+ (test code = 2848625747) 5.5 mmol/L 3.5-5.0 H AC CA IONZ (test code = 6721282397) 5.50 mg/dL 4.50-5.30 H GLUCOSE (test code = 8307001491) 164 mg/dL 70-110 H AC Hematocrit (test code = 1380108521) 20 40-54 LL THB (test code = 4830425922) 6.8 g/dL 13.5-18.0 LL AC TC02 (test code = 8028153106) 20 mmol/L See_Comment L [Automated messa ge] The system which generated this result transmitted reference range: 23-27 mmol/L. The reference range was not used to interpret this result as normal/abnormal. Lab Interpretation (test code = 23131-7) Abnormal [facility] Gvjzvlwt3141-14-39 18:02:28* Test Item Value Reference Range Interpretation Comme nts PH (test code = 2) 7.40 7.35-7.45 PCO2 (test code = 7954385953) 32 35-45 L PO2 (test code = 8965477640) 621 80-100 H BE (test code = 0500370847) -5.0 -3.0-3.0 L HCO3 (test code = 4914781037) 19 22-26 L %O2HB (test code = 6399990639) 100.0 % 95.0-98.0 H NA (test code = 3444153378) 137 mmol/L 135-145 K+ (test code = 5680580472) 4.2 mmol/L 3.5-5.0 AC CA IONZ (test code = 7655167336) 3.90 mg/dL 4.50-5.30 L GLUCOSE (test code = 4031735832) 110 mg/dL 70-110 AC Hematocrit (test code = 5298454079) 21 40-54 LL THB (test code = 1993966762) 7.1 g/dL 13.5-18.0 LL AC TC02 (test code = 8554395367) 20 mmol/L See_Comment L [Automated messa ge] The system which generated this result transmitted reference range: 23-27 mmol/L. The reference range was not used to interpret this result as normal/abnormal. Lab Interpretation (test code = 83282-9) Abnormal [facility] Ifkacfie4072-00-27 18:02:28* Test Item Value Reference Range Interpretation Comme nts PH (test code = 2) 7.36 7.35-7.45 PCO2 (test code = 5486484063) 41 35-45 PO2 (test code = 3725210203) 307 80-100 H BE (test code = 6462201277) -2.0 -3.0-3.0 HCO3 (test code = 9038666373) 23 22-26 %O2HB (test code = 8326907728) 100.0 % 95.0-98.0 H NA (test code = 4626489740) 136 mmol/L 135-145 K+ (test code = 1137930921) 5.6 mmol/L 3.5-5.0 H AC CA IONZ (test code = 7845924820) 4.90 mg/dL 4.50-5.30 GLUCOSE (test code = 0010030133) 156 mg/dL 70-110 H AC Hematocrit (test code = 9323068046) 27 40-54 L THB (test code = 5846875291) 9.2 g/dL 13.5-18.0 L AC TC02 (test code = 8788965858) 24 mmol/L See_Comment [Automated messa ge] The system which generated this result transmitted reference range: 23-27 mmol/L. The reference range was not used to interpret this result as normal/abnormal. Lab Interpretation (test code = 57102-5) Abnormal [facility] Tlapynhh8363-76-23 18:02:28* Test Item Value Reference Range Interpretation Comme nts PH (test code = 2) 7.33 7.35-7.45 L PCO2 (test code = 5912991698) 42 35-45 PO2 (test code = 9191713702) 265 80-100 H BE (test code = 2076961841) -4.0 -3.0-3.0 L HCO3 (test code = 2053881141) 22 22-26 %O2HB (test code = 4697682590) 100.0 % 95.0-98.0 H NA (test code = 0923308764) 136 mmol/L 135-145 K+ (test code = 7613367160) 6.3 mmol/L 3.5-5.0 HH AC CA IONZ (test code = 6971534896) 5.10 mg/dL 4.50-5.30 GLUCOSE (test code = 3469968496) 178 mg/dL 70-110 H AC Hematocrit (test code = 6486803571) 28 40-54 L THB (test code = 4694996531) 9.5 g/dL 13.5-18.0 L AC TC02 (test code = 7984483494) 23 mmol/L See_Comment [Automated [employer] ge] The system which generated this result transmitted reference range: 23-27 mmol/L. The reference range was not used to interpret this result as normal/abnormal. Lab Interpretation (test code = 26270-3) Abnormal [facility] Gocyebxv7494-44-43 18:02:28* Test Item Value Reference Range Interpretation Comme nts PH (test code = 2) 7.37 7.35-7.45 PCO2 (test code = 1218727667) 38 35-45 PO2 (test code = 6399191616) 283 80-100 H BE (test code = 2591163636) -4.0 -3.0-3.0 L HCO3 (test code = 0468417255) 22 22-26 %O2HB (test code = 6628935596) 100.0 % 95.0-98.0 H NA (test code = 2038095122) 137 mmol/L 135-145 K+ (test code = 4050581566) 6.1 mmol/L 3.5-5.0 HH AC CA IONZ (test code = 1108420818) 4.90 mg/dL 4.50-5.30 GLUCOSE (test code = 4219072308) 198 mg/dL 70-110 H AC Hematocrit (test code = 2662551649) 27 40-54 L THB (test code = 8644466145) 9.2 g/dL 13.5-18.0 L AC TC02 (test code = 5002641817) 23 mmol/L See_Comment [Automated messa ge] The system which generated this result transmitted reference range: 23-27 mmol/L. The reference range was not used to interpret this result as normal/abnormal. Lab Interpretation (test code = 66630-9) Abnormal [facility] Akidtneo0510-82-64 18:02:28* Test Item Value Reference Range Interpretation Comme nts PH (test code = 2) 7.37 7.35-7.45 PCO2 (test code = 0678666687) 34 35-45 L PO2 (test code = 3803101392) 283 80-100 H BE (test code = 2741170783) -5.0 -3.0-3.0 L HCO3 (test code = 0172943791) 20 22-26 L %O2HB (test code = 1356147407) 100.0 % 95.0-98.0 H NA (test code = 2917086541) 137 mmol/L 135-145 K+ (test code = 3900292083) 6.4 mmol/L 3.5-5.0 HH AC CA IONZ (test code = 4127203284) 4.80 mg/dL 4.50-5.30 GLUCOSE (test code = 2566264295) 183 mg/dL 70-110 H AC Hematocrit (test code = 5829564177) 26 40-54 L THB (test code = 5216063413) 8.8 g/dL 13.5-18.0 L AC TC02 (test code = 6261556112) 21 mmol/L See_Comment L [Automated messa ge] The system which generated this result transmitted reference range: 23-27 mmol/L. The reference range was not used to interpret this result as normal/abnormal. Lab Interpretation (test code = 88845-0) Abnormal [facility] Uveudzxr9011-92-92 18:02:28* Test Item Value Reference Range Interpretation Comme nts PH (test code = 2) 7.31 7.35-7.45 L PCO2 (test code = 3439354020) 38 35-45 PO2 (test code = 1248351261) 154 80-100 H BE (test code = 1178619377) -7.0 -3.0-3.0 L HCO3 (test code = 8415260766) 19 22-26 L %O2HB (test code = 4268307821) 99.0 % 95.0-98.0 H NA (test code = 1457388396) 139 mmol/L 135-145 K+ (test code = 6532943974) 5.5 mmol/L 3.5-5.0 H AC CA IONZ (test code = 5645004490) 5.50 mg/dL 4.50-5.30 H GLUCOSE (test code = 1336259884) 164 mg/dL 70-110 H AC Hematocrit (test code = 3052072636) 20 40-54 LL THB (test code = 6260605329) 6.8 g/dL 13.5-18.0 LL AC TC02 (test code = 6135667829) 20 mmol/L See_Comment L [Automated messa ge] The system which generated this result transmitted reference range: 23-27 mmol/L. The reference range was not used to interpret this result as normal/abnormal. Lab Interpretation (test code = 45172-5) Abnormal [facility] Iryzxrks2113-44-12 18:02:28* Test Item Value Reference Range Interpretation Comme nts PH (test code = 2) 7.40 7.35-7.45 PCO2 (test code = 0356791135) 32 35-45 L PO2 (test code = 9643521837) 621 80-100 H BE (test code = 8004167383) -5.0 -3.0-3.0 L HCO3 (test code = 1556415391) 19 22-26 L %O2HB (test code = 4736971642) 100.0 % 95.0-98.0 H NA (test code = 5074338620) 137 mmol/L 135-145 K+ (test code = 5322900610) 4.2 mmol/L 3.5-5.0 AC CA IONZ (test code = 6283419599) 3.90 mg/dL 4.50-5.30 L GLUCOSE (test code = 0612360053) 110 mg/dL 70-110 AC Hematocrit (test code = 3002511927) 21 40-54 LL THB (test code = 2312958049) 7.1 g/dL 13.5-18.0 LL AC TC02 (test code = 3784793179) 20 mmol/L See_Comment L [Automated messa ge] The system which generated this result transmitted reference range: 23-27 mmol/L. The reference range was not used to interpret this result as normal/abnormal. Lab Interpretation (test code = 26018-2) Abnormal [facility] Ygtrolvd6950-19-24 18:02:28* Test Item Value Reference Range Interpretation Comme nts PH (test code = 2) 7.36 7.35-7.45 PCO2 (test code = 0084928685) 41 35-45 PO2 (test code = 9275618023) 307 80-100 H BE (test code = 3393511970) -2.0 -3.0-3.0 HCO3 (test code = 5610871219) 23 22-26 %O2HB (test code = 3225890850) 100.0 % 95.0-98.0 H NA (test code = 9411811763) 136 mmol/L 135-145 K+ (test code = 7782596194) 5.6 mmol/L 3.5-5.0 H AC CA IONZ (test code = 6302579851) 4.90 mg/dL 4.50-5.30 GLUCOSE (test code = 8213635377) 156 mg/dL 70-110 H AC Hematocrit (test code = 1453920702) 27 40-54 L THB (test code = 5813448066) 9.2 g/dL 13.5-18.0 L AC TC02 (test code = 1610792116) 24 mmol/L See_Comment [Automated messa ge] The system which generated this result transmitted reference range: 23-27 mmol/L. The reference range was not used to interpret this result as normal/abnormal. Lab Interpretation (test code = 83297-7) Abnormal [facility] Irtqzxto6937-79-69 18:02:28* Test Item Value Reference Range Interpretation Comme nts PH (test code = 2) 7.33 7.35-7.45 L PCO2 (test code = 1464771478) 42 35-45 PO2 (test code = 1345634137) 265 80-100 H BE (test code = 3842558209) -4.0 -3.0-3.0 L HCO3 (test code = 1115250140) 22 22-26 %O2HB (test code = 5914916095) 100.0 % 95.0-98.0 H NA (test code = 4631562309) 136 mmol/L 135-145 K+ (test code = 4074111934) 6.3 mmol/L 3.5-5.0 HH AC CA IONZ (test code = 2702261583) 5.10 mg/dL 4.50-5.30 GLUCOSE (test code = 3616115782) 178 mg/dL 70-110 H AC Hematocrit (test code = 2141539527) 28 40-54 L THB (test code = 9073148310) 9.5 g/dL 13.5-18.0 L AC TC02 (test code = 0101270086) 23 mmol/L See_Comment [Automated messa ge] The system which generated this result transmitted reference range: 23-27 mmol/L. The reference range was not used to interpret this result as normal/abnormal. Lab Interpretation (test code = 34453-2) Abnormal [facility] Jhwlosks3504-38-32 18:02:28* Test Item Value Reference Range Interpretation Comme nts PH (test code = 2) 7.37 7.35-7.45 PCO2 (test code = 9991667406) 38 35-45 PO2 (test code = 6292854055) 283 80-100 H BE (test code = 9722107985) -4.0 -3.0-3.0 L HCO3 (test code = 1239068166) 22 22-26 %O2HB (test code = 0445615821) 100.0 % 95.0-98.0 H NA (test code = 5701396243) 137 mmol/L 135-145 K+ (test code = 2026059233) 6.1 mmol/L 3.5-5.0 HH AC CA IONZ (test code = 7917293244) 4.90 mg/dL 4.50-5.30 GLUCOSE (test code = 3614127551) 198 mg/dL 70-110 H AC Hematocrit (test code = 8893378522) 27 40-54 L THB (test code = 9875728427) 9.2 g/dL 13.5-18.0 L AC TC02 (test code = 4759632916) 23 mmol/L See_Comment [Automated messa ge] The system which generated this result transmitted reference range: 23-27 mmol/L. The reference range was not used to interpret this result as normal/abnormal. Lab Interpretation (test code = 74525-8) Abnormal [facility] Zmyivezr2749-51-31 18:02:28* Test Item Value Reference Range Interpretation Comme nts PH (test code = 2) 7.37 7.35-7.45 PCO2 (test code = 5603700607) 34 35-45 L PO2 (test code = 0555332688) 283 80-100 H BE (test code = 1636595545) -5.0 -3.0-3.0 L HCO3 (test code = 5450946038) 20 22-26 L %O2HB (test code = 0225755735) 100.0 % 95.0-98.0 H NA (test code = 6669674779) 137 mmol/L 135-145 K+ (test code = 8292441773) 6.4 mmol/L 3.5-5.0 HH AC CA IONZ (test code = 2135886898) 4.80 mg/dL 4.50-5.30 GLUCOSE (test code = 3301444949) 183 mg/dL 70-110 H AC Hematocrit (test code = 1328681349) 26 40-54 L THB (test code = 1198364094) 8.8 g/dL 13.5-18.0 L AC TC02 (test code = 4812497405) 21 mmol/L See_Comment L [Automated messa ge] The system which generated this result transmitted reference range: 23-27 mmol/L. The reference range was not used to interpret this result as normal/abnormal. Lab Interpretation (test code = 37454-4) Abnormal [facility] Fqwfjxpu1373-84-05 18:02:28* Test Item Value Reference Range Interpretation Comme nts PH (test code = 2) 7.31 7.35-7.45 L PCO2 (test code = 7449508502) 38 35-45 PO2 (test code = 7193204692) 154 80-100 H BE (test code = 3062837410) -7.0 -3.0-3.0 L HCO3 (test code = 9352450942) 19 22-26 L %O2HB (test code = 1429941626) 99.0 % 95.0-98.0 H NA (test code = 0774236366) 139 mmol/L 135-145 K+ (test code = 6855460232) 5.5 mmol/L 3.5-5.0 H AC CA IONZ (test code = 2708624349) 5.50 mg/dL 4.50-5.30 H GLUCOSE (test code = 5963884902) 164 mg/dL 70-110 H AC Hematocrit (test code = 3311717276) 20 40-54 LL THB (test code = 5602144710) 6.8 g/dL 13.5-18.0 LL AC TC02 (test code = 7131196417) 20 mmol/L See_Comment L [Automated messa ge] The system which generated this result transmitted reference range: 23-27 mmol/L. The reference range was not used to interpret this result as normal/abnormal. Lab Interpretation (test code = 25753-9) Abnormal [facility] [id number] 18:02:22* Test Item Value Reference Range Interpretation Comme nts PH (test code = 2) 7.38 7.35-7.45 PCO2 (test code = 5694868990) 38 35-45 PO2 (test code = 9023274502) 127 80-100 H BE (test code = 0242704611) -3.0 -3.0-3.0 HCO3 (test code = 3896993528) 23 22-26 %O2HB (test code = 8033829973) 99.0 % 95.0-98.0 H NA (test code = 9095535636) 138 mmol/L 135-145 K+ (test code = 6091847558) 3.7 mmol/L 3.5-5.0 AC CA IONZ (test code = 8971779033) 5.70 mg/dL 4.50-5.30 H GLUCOSE (test code = 7205074253) 101 mg/dL 70-110 AC Hematocrit (test code = 9398076859) 31 40-54 L THB (test code = 6703725186) 10.5 g/dL 13.5-18.0 L AC TC02 (test code = 1182618026) 24 mmol/L See_Comment [Automated messa ge] The system which generated this result transmitted reference range: 23-27 mmol/L. The reference range was not used to interpret this result as normal/abnormal. Lab Interpretation (test code = 13702-7) Abnormal [facility] [id number] 18:02:22* Test Item Value Reference Range Interpretation Comme nts PH (test code = 2) 7.38 7.35-7.45 PCO2 (test code = 7291593558) 38 35-45 PO2 (test code = 5339836003) 127 80-100 H BE (test code = 5133066905) -3.0 -3.0-3.0 HCO3 (test code = 7858151474) 23 22-26 %O2HB (test code = 2393258104) 99.0 % 95.0-98.0 H NA (test code = 6392801405) 138 mmol/L 135-145 K+ (test code = 1501660413) 3.7 mmol/L 3.5-5.0 AC CA IONZ (test code = 7489461578) 5.70 mg/dL 4.50-5.30 H GLUCOSE (test code = 4690404910) 101 mg/dL 70-110 AC Hematocrit (test code = 3545466593) 31 40-54 L THB (test code = 2721442887) 10.5 g/dL 13.5-18.0 L AC TC02 (test code = 7476598041) 24 mmol/L See_Comment [Automated messa ge] The system which generated this result transmitted reference range: 23-27 mmol/L. The reference range was not used to interpret this result as normal/abnormal. Lab Interpretation (test code = 61766-5) Abnormal [facility] [id number] 18:02:22* Test Item Value Reference Range Interpretation Comme nts PH (test code = 2) 7.38 7.35-7.45 PCO2 (test code = 2421140616) 38 35-45 PO2 (test code = 4643543642) 127 80-100 H BE (test code = 9901332049) -3.0 -3.0-3.0 HCO3 (test code = 9234424727) 23 22-26 %O2HB (test code = 0109694482) 99.0 % 95.0-98.0 H NA (test code = 1566841277) 138 mmol/L 135-145 K+ (test code = 3612143348) 3.7 mmol/L 3.5-5.0 AC CA IONZ (test code = 3278552902) 5.70 mg/dL 4.50-5.30 H GLUCOSE (test code = 1756076283) 101 mg/dL 70-110 AC Hematocrit (test code = 1279819738) 31 40-54 L THB (test code = 2542891838) 10.5 g/dL 13.5-18.0 L AC TC02 (test code = 4352526035) 24 mmol/L See_Comment [Automated messa ge] The system which generated this result transmitted reference range: 23-27 mmol/L. The reference range was not used to interpret this result as normal/abnormal. Lab Interpretation (test code = 94670-4) [facility] Test Item Value Reference Range Interpretation Comme nts MAGNESIUM (test code = 7409794881) 1.6 mg/dL 1.7-2.4 L Lab Interpretation (test cod e = 36931-3) Abnormal [facility]2024-03-11 23:38:45* Test Item Value Reference Range Interpretation Comme nts MAGNESIUM (test code = 8871004913) 1.6 mg/dL 1.7-2.4 L Lab Interpretation (test cod e = 40484-8) [facility]normal [facility] 23:38:45* Test Item Value Reference Range Interpretation Comme nts MAGNESIUM (test code = 9352871199) 1.6 mg/dL 1.7-2.4 L Lab Interpretation (test cod e = 38444-8) Abnormal [facility] [id number] 23:25:22* Test Item Value Reference Range Interpretation Comme nts APTT Patient (test code = 3173-2) 86 26-36 H Lab Interpretation (test cod e = 93059-4) Abnormal [facility] [id number] 23:25:22* Test Item Value Reference Range Interpretation Comme nts APTT Patient (test code = 3173-2) 86 26-36 H Lab Interpretation (test cod e = 93789-8) Abnormal [facility] [id number] 23:25:22* Test Item Value Reference Range Interpretation Comme nts APTT Patient (test code = 3173-2) 86 26-36 H Lab Interpretation (test cod e = 73639-8) [facility]normal [facility] - Type and Screen expires at midnight on the 3rd day after it was drawn. A current Type and Screen is required when RBCs are requested. For all other blood products, a Type and Screenperformed during the current hospitalization i...2023-07-07 23:13:00* Test Item Value Reference Range Interpretation Comme nts ABO & RH (test code = 20) B POSITIVE IAT (test code = 1185) Negative [facility] - Type and Screen expires at midnight on the 3rd day after it was drawn. A current Type and Screen is required when RBCs are requested. For all other blood products, a Type and Screenperformed during the current hospitalization i...2023-07-07 23:13:00* Test Item Value Reference Range Interpretation Comme nts ABO & RH (test code = 20) B POSITIVE IAT (test code = 1185) [facility] Type and Screen expires at midnight on the 3rd day after it was drawn. A current Type and Screen is required when RBCs are requested. For all other blood products, a Type and Screenperformed during the current hospitalization i...2023-07-07 23:13:00* Test Item Value Reference Range Interpretation Comme nts ABO & RH (test code = 20) B POSITIVE IAT (test code = 1185) Negative [facility] 2 [id number] 15:44:47ORDERING PHYSICIAN: JT DOYLE. HISTORY: pre op exam TECHNIQUE: 2 views COMPARISON: 08/13/2019 FINDINGS: Lungs: ?Lungs are clear and hyperinflated. Pleura: ?No effusion or pleural disease is seen. ?Nopneumothorax. Mediastinum/Ellen: ?No masses or adenopathy. Heart: ?Cardiac shadow is prominent Other: ?No acute osseous abnormality is seen.[facility] 2 View 2023-07-07 15:44:47ORDERING PHYSICIAN: JT DOYLE. HISTORY: pre op exam TECHNIQUE: 2 views COMPARISON: 08/13/2019 FINDINGS: Lungs: ?Lungs are clear and hyperinflated. Pleura: ?No effusion or pleural disease is seen. ?Nopneumothorax. Mediastinum/Ellen: ?No masses or adenopathy. Heart: ?Cardiac shadow is prominent Other: ?No acute osseous abnormality is seen.[facility] 2 [id number] 15:44:47ORDERING PHYSICIAN: JT DOYLE. HISTORY: pre op exam TECHNIQUE: 2 views COMPARISON: 08/13/2019 FINDINGS: Lungs: ?Lungs are clear and hyperinflated. Pleura: ?No effusion or pleural disease is seen. ?No pneumothorax. Mediastinum/Ellen: ?No masses or adenopathy. Heart: ?Cardiac shadow is prominent Other: ?No acute osseous abnormality is seen.[facility] 2 [id number] 15:44:47ORDERING PHYSICIAN: JT DOYLE. HISTORY: pre op exam TECHNIQUE: 2 views COMPARISON: 08/13/2019 FINDINGS: Lungs: ?Lungs are clear and hyperinflated. Pleura: ?No effusion or pleural disease is seen. ?Nopneumothorax. Mediastinum/Ellen: ?No masses or adenopathy. Heart: ?Cardiac shadow is prominent Other: ?No acute osseous abnormality is seen. [facility] with [id number] 07:09:12* Test Item Value Reference Range Interpretation Comme nts WBC (test code = 6690-2) 4.62 4.20-10.70 RBC (test code = 789-8) 3.41 4.26-5.52 L HGB (test code = 718-7) 10.7 g/dL 12.2-16.4 L HCT (test code = 4544-3) 31.6 % 38.4-49.3 L MCV (test code = 787-2) 92.7 fL 81.7-95.6 MCH (test code = 785-6) 31.4 pg 26.1-32.7 MCHC (test code = 786-4) 33.9 g/dL 31.2-35.0 RDW-SD (test code = 14223-0) 49.1 fL 38.5-51.6 RDW-CV (test code = 788-0) 14.5 % 12.1-15.4 PLT (test code = 777-3) 132 150-328 L MPV (test code = 82178-4) 12.0 fL 9.8-13.0 IPF % (test code = 6032216135) 5.4 % 1.2-10.7 Platelet count measured by fluorescence method. NRBC/100 WBC (test code = 1467752186) 0.0 0.0-10.0 NRBC x10^3 (test code = 4525176820) See_Comment [Automated messa ge] The system which generated this result transmitted reference range: 10*3/?L. The reference range was not used to interpret this result as normal/abnormal. GRAN MAT (NEUT) % (test code = 770-8) 66.3 % IMM GRAN % (test code = 5807274429) 0.40 % LYMPH % (test code = 736-9) 19.0 % MONO % (test code = 5905-5) 9.7 % EOS % (test code = 713-8) 3.5 % BASO % (test code = 706-2) 1.1 % GRAN MAT x10^3(ANC) (test code = 1395381717) 3.06 10*3/uL 1.99-6.95 IMM GRAN x10^3 (test code = 1803107167) 0.00-0.06 LYMPH x10^3 (test code = 731-0) 0.88 10*3/uL 1.09-3.23 L MONO x10^3 (test code = 742-7) 0.45 10*3/uL 0.36-1.02 EOS x10^3 (test code = 711-2) 0.16 10*3/uL 0.06-0.53 BASO x10^3 (test code = 704-7) 0.05 10*3/uL 0.01-0.09 Lab Interpretation (test code = 91120-5) Abnormal [facility] Metabolic Panel (NA, K, CL, CO2, GLUCOSE, BUN, CREATININE, CA)2023-07-06 07:09:12* Test Item Value Reference Range Interpretation Comme nts NA (test code = 2328390237) 138 mmol/L 135-145 K (test code = 4032050890) 3.8 mmol/L 3.5-5.0 CL (test code = 0484096522) 113 mmol/L 98-108 H CO2 TOTAL (test code = 3057875953) 22 mmol/L 23-31 L AGAP (test code = 4180831863) 3 2-16 BUN (test code = 0189381165) 20 mg/dL 7-23 GLUCOSE (test code = 7909398491) 101 mg/dL 70-110 CREATININE (test code = 2160-0) 1.63 mg/dL 0.60-1.25 H CALCIUM (test code = 0189896800) 9.7 mg/dL 8.6-10.6 eGFR (test code = 29701-8) 45.9 mL/min/1.73m2 CKD-EPI eGFR (2020). Assuming creatinine has been stable day-to-day for at least three months, the eGFR indicates Category G3a (45 - 59 mL/min/1.73 m2) Lab Interpretation (test code = 55115-5) Abnormal [facility] 07:09:12* Test Item Value Reference Range Interpretation Comme nts MAGNESIUM (test code = 6121853945) 1.8 mg/dL 1.7-2.4 Lab Interpretation (test cod e = 88034-7) Normal [facility] with [id number] 07:09:12* Test Item Value Reference Range Interpretation Comme nts WBC (test code = 6690-2) 4.62 4.20-10.70 RBC (test code = 789-8) 3.41 4.26-5.52 L HGB (test code = 718-7) 10.7 g/dL 12.2-16.4 L HCT (test code = 4544-3) 31.6 % 38.4-49.3 L MCV (test code = 787-2) 92.7 fL 81.7-95.6 MCH (test code = 785-6) 31.4 pg 26.1-32.7 MCHC (test code = 786-4) 33.9 g/dL 31.2-35.0 RDW-SD (test code = 35361-0) 49.1 fL 38.5-51.6 RDW-CV (test code = 788-0) 14.5 % 12.1-15.4 PLT (test code = 777-3) 132 150-328 L MPV (test code = 57888-7) 12.0 fL 9.8-13.0 IPF % (test code = 5755049016) 5.4 % 1.2-10.7 Platelet count measured by fluorescence method. NRBC/100 WBC (test code = 3194641345) 0.0 0.0-10.0 NRBC x10^3 (test code = 1557994308) See_Comment [Automated [employer] ge] The system which generated this result transmitted reference range: 10*3/?L. The reference range was not used to interpret this result as normal/abnormal. GRAN MAT (NEUT) % (test code = 770-8) 66.3 % IMM GRAN % (test code = 2981097844) 0.40 % LYMPH % (test code = 736-9) 19.0 % MONO % (test code = 5905-5) 9.7 % EOS % (test code = 713-8) 3.5 % BASO % (test code = 706-2) 1.1 % GRAN MAT x10^3(ANC) (test code = 7632226259) 3.06 10*3/uL 1.99-6.95 IMM GRAN x10^3 (test code = 5261340598) 0.00-0.06 LYMPH x10^3 (test code = 731-0) 0.88 10*3/uL 1.09-3.23 L MONO x10^3 (test code = 742-7) 0.45 10*3/uL 0.36-1.02 EOS x10^3 (test code = 711-2) 0.16 10*3/uL 0.06-0.53 BASO x10^3 (test code = 704-7) 0.05 10*3/uL 0.01-0.09 Lab Interpretation (test code = 67363-9) [facility] (NA, K, CL, CO2, GLUCOSE, BUN, CREATININE, CA)2023-07-06 07:09:12* Test Item Value Reference Range Interpretation Comme nts NA (test code = 1653945101) 138 mmol/L 135-145 K (test code = 0304434047) 3.8 mmol/L 3.5-5.0 CL (test code = 9245027331) 113 mmol/L 98-108 H CO2 TOTAL (test code = 9404437998) 22 mmol/L 23-31 L AGAP (test code = 9093282714) 3 2-16 BUN (test code = 2757044354) 20 mg/dL 7-23 GLUCOSE (test code = 2355946869) 101 mg/dL 70-110 CREATININE (test code = 2160-0) 1.63 mg/dL 0.60-1.25 H CALCIUM (test code = 0586774392) 9.7 mg/dL 8.6-10.6 eGFR (test code = 24843-3) 45.9 mL/min/1.73m2 CKD-EPI eGFR (2020). Assuming creatinine has been stable day-to-day for at least three months, the eGFR indicates Category G3a (45 - 59 mL/min/1.73 m2) Lab Interpretation (test code = 05433-5) [facility]normal [facility] 07:09:12* Test Item Value Reference Range Interpretation Comme nts MAGNESIUM (test code = 9022054354) 1.8 mg/dL 1.7-2.4 Lab Interpretation (test cod e = 10744-1) Normal [facility] with [id number] 07:09:12* Test Item Value Reference Range Interpretation Comme nts WBC (test code = 6690-2) 4.62 4.20-10.70 RBC (test code = 789-8) 3.41 4.26-5.52 L HGB (test code = 718-7) 10.7 g/dL 12.2-16.4 L HCT (test code = 4544-3) 31.6 % 38.4-49.3 L MCV (test code = 787-2) 92.7 fL 81.7-95.6 MCH (test code = 785-6) 31.4 pg 26.1-32.7 MCHC (test code = 786-4) 33.9 g/dL 31.2-35.0 RDW-SD (test code = 97423-3) 49.1 fL 38.5-51.6 RDW-CV (test code = 788-0) 14.5 % 12.1-15.4 PLT (test code = 777-3) 132 150-328 L MPV (test code = 84689-0) 12.0 fL 9.8-13.0 IPF % (test code = 7232344981) 5.4 % 1.2-10.7 Platelet count measured by fluorescence method. NRBC/100 WBC (test code = 0583635807) 0.0 0.0-10.0 NRBC x10^3 (test code = 2487620856) See_Comment [Automated [employer] ge] The system which generated this result transmitted reference range: 10*3/?L. The reference range was not used to interpret this result as normal/abnormal. GRAN MAT (NEUT) % (test code = 770-8) 66.3 % IMM GRAN % (test code = 9350137382) 0.40 % LYMPH % (test code = 736-9) 19.0 % MONO % (test code = 5905-5) 9.7 % EOS % (test code = 713-8) 3.5 % BASO % (test code = 706-2) 1.1 % GRAN MAT x10^3(ANC) (test code = 5239061575) 3.06 10*3/uL 1.99-6.95 IMM GRAN x10^3 (test code = 2245095387) 0.00-0.06 LYMPH x10^3 (test code = 731-0) 0.88 10*3/uL 1.09-3.23 L MONO x10^3 (test code = 742-7) 0.45 10*3/uL 0.36-1.02 EOS x10^3 (test code = 711-2) 0.16 10*3/uL 0.06-0.53 BASO x10^3 (test code = 704-7) 0.05 10*3/uL 0.01-0.09 Lab Interpretation (test code = 95273-2) Abnormal [facility] Metabolic Panel (NA, K, CL, CO2, GLUCOSE, BUN, CREATININE, CA)2023-07-06 07:09:12* Test Item Value Reference Range Interpretation Comme nts NA (test code = 5745570737) 138 mmol/L 135-145 K (test code = 7156211409) 3.8 mmol/L 3.5-5.0 CL (test code = 2610319460) 113 mmol/L 98-108 H CO2 TOTAL (test code = 5946919748) 22 mmol/L 23-31 L AGAP (test code = 1942366923) 3 2-16 BUN (test code = 0846165905) 20 mg/dL 7-23 GLUCOSE (test code = 1126127465) 101 mg/dL 70-110 CREATININE (test code = 2160-0) 1.63 mg/dL 0.60-1.25 H CALCIUM (test code = 4997483443) 9.7 mg/dL 8.6-10.6 eGFR (test code = 18369-2) 45.9 mL/min/1.73m2 CKD-EPI eGFR (2020). Assuming creatinine has been stable day-to-day for at least three months, the eGFR indicates Category G3a (45 - 59 mL/min/1.73 m2) Lab Interpretation (test code = 39743-8) [facility] 07:09:12* Test Item Value Reference Range Interpretation Comme nts MAGNESIUM (test code = 1651729689) 1.8 mg/dL 1.7-2.4 Lab Interpretation (test cod e = 77963-7) Normal [facility] with Ypdq4624-32-30 07:09:12* Test Item Value Reference Range Interpretation Comme nts WBC (test code = 6690-2) 4.62 4.20-10.70 RBC (test code = 789-8) 3.41 4.26-5.52 L HGB (test code = 718-7) 10.7 g/dL 12.2-16.4 L HCT (test code = 4544-3) 31.6 % 38.4-49.3 L MCV (test code = 787-2) 92.7 fL 81.7-95.6 MCH (test code = 785-6) 31.4 pg 26.1-32.7 MCHC (test code = 786-4) 33.9 g/dL 31.2-35.0 RDW-SD (test code = 38115-8) 49.1 fL 38.5-51.6 RDW-CV (test code = 788-0) 14.5 % 12.1-15.4 PLT (test code = 777-3) 132 150-328 L MPV (test code = 50295-5) 12.0 fL 9.8-13.0 IPF % (test code = 9861808076) 5.4 % 1.2-10.7 Platelet count measured by fluorescence method. NRBC/100 WBC (test code = 0260585705) 0.0 0.0-10.0 NRBC x10^3 (test code = 4732751179) See_Comment [Automated [employer]] The system which generated this result transmitted reference range: 10*3/?L. The reference range was not used to interpret this result as normal/abnormal. GRAN MAT (NEUT) % (test code = 770-8) 66.3 % IMM GRAN % (test code = 3588880350) 0.40 % LYMPH % (test code = 736-9) 19.0 % MONO % (test code = 5905-5) 9.7 % EOS % (test code = 713-8) 3.5 % BASO % (test code = 706-2) 1.1 % GRAN MAT x10^3(ANC) (test code = 2938196695) 3.06 10*3/uL 1.99-6.95 IMM GRAN x10^3 (test code = 9499899620) 0.00-0.06 LYMPH x10^3 (test code = 731-0) 0.88 10*3/uL 1.09-3.23 L MONO x10^3 (test code = 742-7) 0.45 10*3/uL 0.36-1.02 EOS x10^3 (test code = 711-2) 0.16 10*3/uL 0.06-0.53 BASO x10^3 (test code = 704-7) 0.05 10*3/uL 0.01-0.09 Lab Interpretation (test code = 74109-3) Abnormal [facility] Metabolic Panel (NA, K, CL, CO2, GLUCOSE, BUN, CREATININE, CA)2023-07-06 07:09:12* Test Item Value Reference Range Interpretation Comme nts NA (test code = 6214611860) 138 mmol/L 135-145 K (test code = 0117517754) 3.8 mmol/L 3.5-5.0 CL (test code = 8769641081) 113 mmol/L 98-108 H CO2 TOTAL (test code = 9687361651) 22 mmol/L 23-31 L AGAP (test code = 3587175589) 3 2-16 BUN (test code = 8334280137) 20 mg/dL 7-23 GLUCOSE (test code = 9158894709) 101 mg/dL 70-110 CREATININE (test code = 2160-0) 1.63 mg/dL 0.60-1.25 H CALCIUM (test code = 2814215734) 9.7 mg/dL 8.6-10.6 eGFR (test code = 14484-6) 45.9 mL/min/1.73m2 CKD-EPI eGFR (2020). Assuming creatinine has been stable day-to-day for at least three months, the eGFR indicates Category G3a (45 - 59 mL/min/1.73 m2) Lab Interpretation (test code = 04838-3) [facility] 07:09:12* Test Item Value Reference Range Interpretation Comme nts MAGNESIUM (test code = 5538856047) 1.8 mg/dL 1.7-2.4 Lab Interpretation (test cod e = 62963-2) [facility]for use with Heparin Infusion)2023-07-06 06:45:27* Test Item Value Reference Range Interpretation Comme [facility] APTT Patient (test code = 3173-2) 77 26-36 H Lab Interpretation (test cod e = 97864-8) [facility] use with Heparin Infusion[facility]2023-07-06 06:45:27* Test Item Value Reference Range Interpretation Comme [facility] APTT Patient (test code = 3173-2) 77 26-36 H Lab Interpretation (test cod e = 74621-6) [facility]normal [facility] use with Heparin Infusion[facility]2023-07-06 06:45:27* Test Item Value Reference Range Interpretation Comme [facility] APTT Patient (test code = 3173-2) 77 26-36 H Lab Interpretation (test cod e = 92098-4) [facility]normal [facility]for use with Heparin Infusion)2023-07-06 06:45:27* Test Item Value Reference Range Interpretation Comme [facility] APTT Patient (test code = 3173-2) 77 26-36 H Lab Interpretation (test cod e = 17161-8) [facility]normal [facility]2023-07-03 20:53:53* Test Item Value Reference Range Interpretation Comme [facility] Height (test code = 9340032562) 69 in Weight (test code = 2633040444) 200 lbs Systolic BP (test code = 0592953662) 170 mmHg Diastolic BP (test code = 2600680779) 89 mmHg Heart Rate (test code = 8429916239) 90 bpm LV GLS Endo Peak A2C () (test code = 6397791261) -17.10 % LV GLS Endo Peak A3C () (test code = 6334154840) -17.30 % LV GLS Endo Peak A4C () (test code = 4474959863) -9.20 % LV GLS Endo Peak Avg () (test code = 4762879349) -14.50 % BSA (test code = 1862179625) 2.07 m2 Ao root diam (test code = 0136692361) 3.00 cm Aortic root (test code = 2663339991) 3.0 cm Ao root annulus (test code = 3409977099) 3.0 cm LA size (test code = 3952155006) 4.4 cm LAV(MOD-sp4) (test code = 8133176218) 100.10 mL E wave decelartion time (test code = 9414779426) 0.28 s MV Peak E Zain (test code = 5623066820) 116.5 cm/s MV Peak A Zain (test code = 3355701148) 101.2 cm/s E/A ratio (test code = 1742935941) 1.15 ratio MV Prop V (test code = 5960673805) 128.00 cm/s LVOT peak zain (test code = 7704420170) 94.6 cm/s AV LVOT peak gradient (test code = 6999666249) 3.6 mmHg LVOT mn grad (test code = 7542191731) 1.8 mmHg LVOT peak VTI (test code = 5991054696) 18.1 cm LV V1 mean (test code = 8636882719) 63.40 cm/s Tapse (test code = 8105533308) 2.22 cm LA Volume Index (BP) (test code = 6393233512) 53.0 mL/m2 LA volume (BP) (test code = 7872397001) 109.5 mL LAV(MOD-sp2) (test code = 9348563652) 116.90 mL LVIDD (test code = 1924420399) 5.00 cm Left Ventricular End Diastolic Volume by Teichholz Method (test code = 2439382) 116.3 mL IVS (test code = 9864860272) 1.36 cm Interventricular Septum Diastolic Thickness by 2D (test code = 1070375) 1.36 cm LVPWD (test code = 8040391765) 1.29 cm PW (test code = 7437439279) 1.29 cm 0.6-1.1 EF(Teich) (test code = 6902202733) 44.20 % LVIDS (test code = 5231453575) 3.90 cm Left Ventricular End Systolic Volume by Teichholz Method (test code = 8578998) 64.8 mL FS (test code = 5323469574) 22 % EF - 2D (test code = 70377936) 44.20 % GLS (test code = 4771727183) -15 % A4C EF (test code = 9781590177) 47.20 % EF(sp4-el) (test code = 8158438373) 46.80 % SV(MOD-sp4) (test code = 3396787378) 78.80 mL SV(sp4-el) (test code = 1842616785) 79.90 mL LV Diastolic Volume (BP) (test code = 5800612867) 194.8 mL A2C EF (test code = 4496612082) 56.10 % EF(MOD-bp) (test code = 7455623225) 54.90 % EF(sp2-el) (test code = 6538653853) 57.10 % LV Systolic Volume (BP) (test code = 6940470658) 87.9 mL SV(MOD-bp) (test code = 0157034905) 106.90 mL SV(MOD-sp2) (test code = 6128711731) 113.20 mL EF (test code = 3991021769) 55 Left Ventricular Stroke Volume by 2-D Biplane-MOD (test code = 9786215) 106.9 mL Radiology Study observation (narrative) (test code = 59119-9) MARLENE (test code = MARLENE) ?Left?Ventricle: Left ventricle size is normal. There is severe concentric hypertrophy. Normal wall motion. Normal systolic function with a visually estimated EF of 50 - 55%. EF by 2D Overton biplane is 55%. Global longitudinal strain is -15%. There is grade 2 diastolic dysfunction. ?Right?Ventricle: Normal systolic function. ?Left?Atrium: Left atrium is severely dilated. Left atrium volume index is 53.0 mL/m2. ?Tricuspid?Valve: Trace transvalvular regurgitation. Insufficient tricuspid regurgitation jet to estimate RVSP . Martinez Ariza MD Left VentricleLeft ventricle size is normal. There is severe concentric hypertrophy. Normal wall motion. Normal systolic function with a visually estimated EF of 50 - 55%. EF by 2D Overton biplane is 55%. Global longitudinal strain is -15%. There is grade 2 diastolic dysfunction.Right VentricleRight ventricle size is normal. Normal systolic function.Left AtriumLeft atrium is severely dilated. Left atrium volume index is 53.0 mL/m2.Right AtriumRight atrium size is normal.IVC/SVCIVC diameter is less than or equal to 21 mm and decreases greater than 50% during inspiration; therefore the estimated right atrial pressure is normal (~0-5 mmHg).Mitral ValveMitral valve structure is normal. Mild posterior mitral annular calcification. Trace transvalvular regurgitation.Tricuspi d ValveTricuspid valve structure is normal. Trace transvalvular regurgitation. Insufficient tricuspid regurgitation jet to estimate RVSP .Aortic ValveTricuspid. No hemodynamically significant .Pulmonic ValveNot well visualized. Mild transvalvular regurgitation.Ascendin g AortaNormal sized aortic root.PericardiumSmall circumferential pericardial effusion present. Pericardial effusion is echolucent. No indication of cardiac tamponade.Study DetailsStudy quality was adequate. A complete echocardiogram was performed using 2D, color flow Doppler, spectral Doppler and strain. The apical, parasternal, subcostal and suprasternal views were obtained. 5 mL of Lumason ultrasound enhancing agent used. [facility]2023-[facility] 20:53:53* Test Item Value Reference Range Interpretation Comme nts Height (test code = 5466800528) 69 in Weight (test code = 7930128877) 200 lbs Systolic BP (test code = 0673515057) 170 mmHg Diastolic BP (test code = 1526460861) 89 mmHg Heart Rate (test code = 3716425471) 90 bpm LV GLS Endo Peak A2C () (test code = 8873194012) -17.10 % LV GLS Endo Peak A3C () (test code = 4061187606) -17.30 % LV GLS Endo Peak A4C () (test code = 8954287483) -9.20 % LV GLS Endo Peak Avg () (test code = 2430626310) -14.50 % BSA (test code = 8554558566) 2.07 m2 Ao root diam (test code = 2475935549) 3.00 cm Aortic root (test code = 4114817251) 3.0 cm Ao root annulus (test code = 3697602960) 3.0 cm LA size (test code = 3751044623) 4.4 cm LAV(MOD-sp4) (test code = 6512053414) 100.10 mL E wave decelartion time (test code = 7409999127) 0.28 s MV Peak E Zain (test code = 7359623093) 116.5 cm/s MV Peak A Zain (test code = 8379232556) 101.2 cm/s E/A ratio (test code = 8359787525) 1.15 ratio MV Prop V (test code = 9343932803) 128.00 cm/s LVOT peak zain (test code = 8458785678) 94.6 cm/s AV LVOT peak gradient (test code = 5977358391) 3.6 mmHg LVOT mn grad (test code = 8250263496) 1.8 mmHg LVOT peak VTI (test code = 6018337489) 18.1 cm LV V1 mean (test code = 9722852027) 63.40 cm/s Tapse (test code = 1379558978) 2.22 cm LA Volume Index (BP) (test code = 6261529962) 53.0 mL/m2 LA volume (BP) (test code = 5723920470) 109.5 mL LAV(MOD-sp2) (test code = 2253357513) 116.90 mL LVIDD (test code = 5603225959) 5.00 cm Left Ventricular End Diastolic Volume by Teichholz Method (test code = 1721289) 116.3 mL IVS (test code = 0816390540) 1.36 cm Interventricular Septum Diastolic Thickness by 2D (test code = 4600464) 1.36 cm LVPWD (test code = 3443217996) 1.29 cm PW (test code = 3418254087) 1.29 cm 0.6-1.1 EF(Teich) (test code = 8445927464) 44.20 % LVIDS (test code = 1529756645) 3.90 cm Left Ventricular End Systolic Volume by Teichholz Method (test code = 3033346) 64.8 mL FS (test code = 4943136978) 22 % EF - 2D (test code = 30957339) 44.20 % GLS (test code = 2345071392) -15 % A4C EF (test code = 8115659001) 47.20 % EF(sp4-el) (test code = 6118621189) 46.80 % SV(MOD-sp4) (test code = 8600917346) 78.80 mL SV(sp4-el) (test code = 2283974714) 79.90 mL LV Diastolic Volume (BP) (test code = 7846312122) 194.8 mL A2C EF (test code = 9024731066) 56.10 % EF(MOD-bp) (test code = 9530504893) 54.90 % EF(sp2-el) (test code = 6273911357) 57.10 % LV Systolic Volume (BP) (test code = 6802422006) 87.9 mL SV(MOD-bp) (test code = 8220863598) 106.90 mL SV(MOD-sp2) (test code = 6920007559) 113.20 mL EF (test code = 0901564345) 55 Left Ventricular Stroke Volume by 2-D Biplane-MOD (test code = 6708250) 106.9 mL Radiology Study observation (narrative) (test code = 50822-2) MARLENE (test code = MARLENE) ?Left?Ventricle: Left ventricle size is normal. There is severe concentric hypertrophy. Normal wall motion. Normal systolic function with a visually estimated EF of 50 - 55%. EF by 2D Overton biplane is 55%. Global longitudinal strain is -15%. There is grade 2 diastolic dysfunction. ?Right?Ventricle: Normal systolic function. ?Left?Atrium: Left atrium is severely dilated. Left atrium volume index is 53.0 mL/m2. ?Tricuspid?Valve: Trace transvalvular regurgitation. Insufficient tricuspid regurgitation jet to estimate RVSP . Martinez Ariza MD Left VentricleLeft ventricle size is normal. There is severe concentric hypertrophy. Normal wall motion. Normal systolic function with a visually estimated EF of 50 - 55%. EF by 2D Overton biplane is 55%. Global longitudinal strain is -15%. There is grade 2 diastolic dysfunction.Right VentricleRight ventricle size is normal. Normal systolic function.Left AtriumLeft atrium is severely dilated. Left atrium volume index is 53.0 mL/m2.Right AtriumRight atrium size is normal.IVC/SVCIVC diameter is less than or equal to 21 mm and decreases greater than 50% during inspiration; therefore the estimated right atrial pressure is normal (~0-5 mmHg).Mitral ValveMitral valve structure is normal. Mild posterior mitral annular calcification. Trace transvalvular regurgitation.Tricuspi d ValveTricuspid valve structure is normal. Trace transvalvular regurgitation. Insufficient tricuspid regurgitation jet to estimate RVSP .Aortic ValveTricuspid. No hemodynamically significant .Pulmonic ValveNot well visualized. Mild transvalvular regurgitation.Ascendin g AortaNormal sized aortic root.PericardiumSmall circumferential pericardial effusion present. Pericardial effusion is echolucent. No indication of cardiac tamponade.Study DetailsStudy quality was adequate. A complete echocardiogram was performed using 2D, color flow Doppler, spectral Doppler and strain. The apical, parasternal, subcostal and suprasternal views were obtained. 5 mL of Lumason ultrasound enhancing agent used. [facility] 20:53:53* Test Item Value Reference Range Interpretation Comme nts Height (test code = 3704420321) 69 in Weight (test code = 6210293246) 200 lbs Systolic BP (test code = 3013812829) 170 mmHg Diastolic BP (test code = 2921595189) 89 mmHg Heart Rate (test code = 5316253593) 90 bpm LV GLS Endo Peak A2C () (test code = 7267679344) -17.10 % LV GLS Endo Peak A3C () (test code = 5073636231) -17.30 % LV GLS Endo Peak A4C () (test code = 1442979912) -9.20 % LV GLS Endo Peak Avg () (test code = 6516216498) -14.50 % BSA (test code = 3156414191) 2.07 m2 Ao root diam (test code = 0322687902) 3.00 cm Aortic root (test code = 4650899242) 3.0 cm Ao root annulus (test code = 3360944319) 3.0 cm LA size (test code = 7619853946) 4.4 cm LAV(MOD-sp4) (test code = 3317497512) 100.10 mL E wave decelartion time (test code = 6134262424) 0.28 s MV Peak E Zain (test code = 7506550660) 116.5 cm/s MV Peak A Zain (test code = 1125007348) 101.2 cm/s E/A ratio (test code = 2535375500) 1.15 ratio MV Prop V (test code = 1248681804) 128.00 cm/s LVOT peak zain (test code = 7179050367) 94.6 cm/s AV LVOT peak gradient (test code = 9511041353) 3.6 mmHg LVOT mn grad (test code = 7053267087) 1.8 mmHg LVOT peak VTI (test code = 1569754453) 18.1 cm LV V1 mean (test code = 6132150223) 63.40 cm/s Tapse (test code = 0018722904) 2.22 cm LA Volume Index (BP) (test code = 2646297072) 53.0 mL/m2 LA volume (BP) (test code = 9730716062) 109.5 mL LAV(MOD-sp2) (test code = 2381389030) 116.90 mL LVIDD (test code = 3896398502) 5.00 cm Left Ventricular End Diastolic Volume by Teichholz Method (test code = 1215638) 116.3 mL IVS (test code = 0313777403) 1.36 cm Interventricular Septum Diastolic Thickness by 2D (test code = 1585904) 1.36 cm LVPWD (test code = 9007539321) 1.29 cm PW (test code = 5524574872) 1.29 cm 0.6-1.1 EF(Teich) (test code = 2455878661) 44.20 % LVIDS (test code = 9162093990) 3.90 cm Left Ventricular End Systolic Volume by Teichholz Method (test code = 3306942) 64.8 mL FS (test code = 9188430504) 22 % EF - 2D (test code = 42918398) 44.20 % GLS (test code = 9231838043) -15 % A4C EF (test code = 0582165638) 47.20 % EF(sp4-el) (test code = 7161281105) 46.80 % SV(MOD-sp4) (test code = 9492466671) 78.80 mL SV(sp4-el) (test code = 8117799566) 79.90 mL LV Diastolic Volume (BP) (test code = 3964875394) 194.8 mL A2C EF (test code = 1887548183) 56.10 % EF(MOD-bp) (test code = 8288740394) 54.90 % EF(sp2-el) (test code = 3416228167) 57.10 % LV Systolic Volume (BP) (test code = 0158639696) 87.9 mL SV(MOD-bp) (test code = 5774142113) 106.90 mL SV(MOD-sp2) (test code = 1661050206) 113.20 mL EF (test code = 1481650201) 55 Left Ventricular Stroke Volume by 2-D Biplane-MOD (test code = 9285926) 106.9 mL Radiology Study observation (narrative) (test code = 71902-4) MARLENE (test code = MARLENE) ?Left?Ventricle: Left ventricle size is normal. There is severe concentric hypertrophy. Normal wall motion. Normal systolic function with a visually estimated EF of 50 - 55%. EF by 2D Overton biplane is 55%. Global longitudinal strain is -15%. There is grade 2 diastolic dysfunction. ?Right?Ventricle: Normal systolic function. ?Left?Atrium: Left atrium is severely dilated. Left atrium volume index is 53.0 mL/m2. ?Tricuspid?Valve: Trace transvalvular regurgitation. Insufficient tricuspid regurgitation jet to estimate RVSP . Martinez Ariza MD Left VentricleLeft ventricle size is normal. There is severe concentric hypertrophy. Normal wall motion. Normal systolic function with a visually estimated EF of 50 - 55%. EF by 2D Overton biplane is 55%. Global longitudinal strain is -15%. There is grade 2 diastolic dysfunction.Right VentricleRight ventricle size is normal. Normal systolic function.Left AtriumLeft atrium is severely dilated. Left atrium volume index is 53.0 mL/m2.Right AtriumRight atrium size is normal.IVC/SVCIVC diameter is less than or equal to 21 mm and decreases greater than 50% during inspiration; therefore the estimated right atrial pressure is normal (~0-5 mmHg).Mitral ValveMitral valve structure is normal. Mild posterior mitral annular calcification. Trace transvalvular regurgitation.Tricuspi d ValveTricuspid valve structure is normal. Trace transvalvular regurgitation. Insufficient tricuspid regurgitation jet to estimate RVSP .Aortic ValveTricuspid. No hemodynamically significant .Pulmonic ValveNot well visualized. Mild transvalvular regurgitation.Ascendin g AortaNormal sized aortic root.PericardiumSmall circumferential pericardial effusion present. Pericardial effusion is echolucent. No indication of cardiac tamponade.Study DetailsStudy quality was adequate. A complete echocardiogram was performed using 2D, color flow Doppler, spectral Doppler and strain. The apical, parasternal, subcostal and suprasternal views were obtained. 5 mL of Lumason ultrasound enhancing agent used. [facility] 20:53:53* Test Item Value Reference Range Interpretation Comme nts Height (test code = 5224766203) 69 in Weight (test code = 6566770004) 200 lbs Systolic BP (test code = 7210047760) 170 mmHg Diastolic BP (test code = 5073826179) 89 mmHg Heart Rate (test code = 0215135576) 90 bpm LV GLS Endo Peak A2C () (test code = 2106919287) -17.10 % LV GLS Endo Peak A3C () (test code = 1115279616) -17.30 % LV GLS Endo Peak A4C () (test code = 7039023297) -9.20 % LV GLS Endo Peak Avg () (test code = 9117081245) -14.50 % BSA (test code = 1454713410) 2.07 m2 Ao root diam (test code = 8666486426) 3.00 cm Aortic root (test code = 3967070704) 3.0 cm Ao root annulus (test code = 1261448417) 3.0 cm LA size (test code = 7414574833) 4.4 cm LAV(MOD-sp4) (test code = 6223867013) 100.10 mL E wave decelartion time (test code = 2679677844) 0.28 s MV Peak E Zain (test code = 3631784957) 116.5 cm/s MV Peak A Zain (test code = 2894741784) 101.2 cm/s E/A ratio (test code = 7241966046) 1.15 ratio MV Prop V (test code = 6079587183) 128.00 cm/s LVOT peak zain (test code = 6615823266) 94.6 cm/s AV LVOT peak gradient (test code = 7267443061) 3.6 mmHg LVOT mn grad (test code = 4264568251) 1.8 mmHg LVOT peak VTI (test code = 6004259847) 18.1 cm LV V1 mean (test code = 4331021804) 63.40 cm/s Tapse (test code = 3284368713) 2.22 cm LA Volume Index (BP) (test code = 5331046964) 53.0 mL/m2 LA volume (BP) (test code = 9928158770) 109.5 mL LAV(MOD-sp2) (test code = 0591044101) 116.90 mL LVIDD (test code = 6552764071) 5.00 cm Left Ventricular End Diastolic Volume by Teichholz Method (test code = 0392580) 116.3 mL IVS (test code = 8328049342) 1.36 cm Interventricular Septum Diastolic Thickness by 2D (test code = 9363766) 1.36 cm LVPWD (test code = 7758432564) 1.29 cm PW (test code = 1782436690) 1.29 cm 0.6-1.1 EF(Teich) (test code = 7768228323) 44.20 % LVIDS (test code = 5043552604) 3.90 cm Left Ventricular End Systolic Volume by Teichholz Method (test code = 4099209) 64.8 mL FS (test code = 8041244632) 22 % EF - 2D (test code = 10851061) 44.20 % GLS (test code = 6012765127) -15 % A4C EF (test code = 1402356698) 47.20 % EF(sp4-el) (test code = 3590702671) 46.80 % SV(MOD-sp4) (test code = 3987570875) 78.80 mL SV(sp4-el) (test code = 0605562966) 79.90 mL LV Diastolic Volume (BP) (test code = 7824102028) 194.8 mL A2C EF (test code = 3715504689) 56.10 % EF(MOD-bp) (test code = 2635117076) 54.90 % EF(sp2-el) (test code = 9386426727) 57.10 % LV Systolic Volume (BP) (test code = 9298120460) 87.9 mL SV(MOD-bp) (test code = 4726814934) 106.90 mL SV(MOD-sp2) (test code = 9569884622) 113.20 mL EF (test code = 8835624740) 55 Left Ventricular Stroke Volume by 2-D Biplane-MOD (test code = 8227248) 106.9 mL Radiology Study observation (narrative) (test code = 00278-8) MARLENE (test code = MARLENE) ?Left?Ventricle: Left ventricle size is normal. There is severe concentric hypertrophy. Normal wall motion. Normal systolic function with a visually estimated EF of 50 - 55%. EF by 2D Overton biplane is 55%. Global longitudinal strain is -15%. There is grade 2 diastolic dysfunction. ?Right?Ventricle: Normal systolic function. ?Left?Atrium: Left atrium is severely dilated. Left atrium volume index is 53.0 mL/m2. ?Tricuspid?Valve: Trace transvalvular regurgitation. Insufficient tricuspid regurgitation jet to estimate RVSP . Martinez Ariza MD Left VentricleLeft ventricle size is normal. There is severe concentric hypertrophy. Normal wall motion. Normal systolic function with a visually estimated EF of 50 - 55%. EF by 2D Overton biplane is 55%. Global longitudinal strain is -15%. There is grade 2 diastolic dysfunction.Right VentricleRight ventricle size is normal. Normal systolic function.Left AtriumLeft atrium is severely dilated. Left atrium volume index is 53.0 mL/m2.Right AtriumRight atrium size is normal.IVC/SVCIVC diameter is less than or equal to 21 mm and decreases greater than 50% during inspiration; therefore the estimated right atrial pressure is normal (~0-5 mmHg).Mitral ValveMitral valve structure is normal. Mild posterior mitral annular calcification. Trace transvalvular regurgitation.Tricuspi d ValveTricuspid valve structure is normal. Trace transvalvular regurgitation. Insufficient tricuspid regurgitation jet to estimate RVSP .Aortic ValveTricuspid. No hemodynamically significant .Pulmonic ValveNot well visualized. Mild transvalvular regurgitation.Ascendin g AortaNormal sized aortic root.PericardiumSmall circumferential pericardial effusion present. Pericardial effusion is echolucent. No indication of cardiac tamponade.Study DetailsStudy quality was adequate. A complete echocardiogram was performed using 2D, color flow Doppler, spectral Doppler and strain. The apical, parasternal, subcostal and suprasternal views were obtained. 5 mL of Lumason ultrasound enhancing agent used. [facility] CHEST 1 [id number] 16:22:16PROCEDURE: XR CHEST 1 CLINICAL INDICATION: chest pain COMPARISON: Chest radiograph dated 04/13/2020 FINDINGS: No focal consolidation is identified. Hilar vascular congestion noted. Nopleural effusion or pneumothorax is seen. The cardiomediastinal silhouetteis enlarged.No acute bony abnormality.[facility] CHEST 1 [id number] 16:22:16PROCEDURE: XR CHEST 1 CLINICAL INDICATION: chest pain COMPARISON: Chest radiograph dated 04/13/2020 FINDINGS: No focal consolidation is identified. Hilar vascular congestion noted. Nopleural effusion or pneumothorax is seen. The cardiomediastinal silhouetteis enlarged.No acute bony abnormality.[facility] CHEST 1 [id number] 16:22:16PROCEDURE: XR CHEST 1 CLINICAL INDICATION: chest pain COMPARISON: Chest radiograph dated 04/13/2020 FINDINGS: No focal consolidation is identified. Hilar vascular congestion noted. Nopleural effusion or pneumothorax is seen. The cardiomediastinal silhouetteis enlarged.No acute bony abnormality.[facility] CHEST 1 [id number] 16:22:16 PROCEDURE: XR CHEST 1 CLINICAL INDICATION: chest pain COMPARISON: Chest radiograph dated 04/13/2020 FINDINGS: No focal consolidation is identified. Hilar vascular congestion noted. Nopleural effusion or pneumothorax is seen. The cardiomediastinal silhouetteis enlarged.No acute bony abnormality.[facility]isco[facility] Whole [id number] 10:00:43* Test Item Value Reference Range Interpretation Comme nts LACTIC ACID (test code = 1266693509) 0.95 mmol/L 0.50-2.20 Lab Interpretation (test cod e = 74877-9) Normal [facility]iscoLactic Acid Whole [id number] 10:00:43* Test Item Value Reference Range Interpretation Comme nts LACTIC ACID (test code = 8122498964) 0.95 mmol/L 0.50-2.20 Lab Interpretation (test cod e = 10326-5) Normal [facility]iscoLactic Acid Whole [id number] 10:00:43* Test Item Value Reference Range Interpretation Comme nts LACTIC ACID (test code = 7851221913) 0.95 mmol/L 0.50-2.20 Lab Interpretation (test cod e = 08715-5) Normal [facility]iscoLactic Acid Whole [id number] 10:00:43* Test Item Value Reference Range Interpretation Comme nts LACTIC ACID (test code = 8705817153) 0.95 mmol/L 0.50-2.20 Lab Interpretation (test cod e = 91180-9) Normal [facility]iscoThyroid Stimulating [id number] 07:20:51 * Test Item Value Reference Range Interpretation Comme nts TSH (test code = 8859798233) 2.45 0.45-4.70 Biotin has been reported to cause a negative bias, interpret results relative to patient's use of biotin. Lab Interpretation (test code = 83587-3) Normal [facility]iscoThyroid Stimulating [id number] 07:20:51 * Test Item Value Reference Range Interpretation Comme nts TSH (test code = 3955480878) 2.45 0.45-4.70 Biotin has been reported to cause a negative bias, interpret results relative to patient's use of biotin. Lab Interpretation (test code = 63827-9) Normal [facility] [id number] 07:20:51 * Test Item Value Reference Range Interpretation Comme nts TSH (test code = 3058898346) 2.45 0.45-4.70 Biotin has been reported to cause a negative bias, interpret results relative to patient's use of biotin. Lab Interpretation (test code = 08800-1) Normal [facility] [id number] 07:20:51 * Test Item Value Reference Range Interpretation Comme nts TSH (test code = 6760608435) 2.45 0.45-4.70 Biotin has been reported to cause a negative bias, interpret results relative to patient's use of biotin. Lab Interpretation (test code = 50017-3) Normal [facility]iscoGlycosylated Hemoglobin (A1C)2023-07-03 06:51:13* Test Item Value Reference Range Interpretation Comme [facility] HGB A1C (test code = 4548-4) 5.6 % 4.0-5.7 MARLENE (test code = MARLENE) Reference RangesNormal: <5.7%Prediabetes: 5.7 - 6.4%Diabetes: > 6.5% Lab Interpretation (test code = 08576-9) Normal [facility]iscoGlycosylated Hemoglobin (A1C)2023-07-03 06:51:13* Test Item Value Reference Range Interpretation Comme [facility] HGB A1C (test code = 4548-4) 5.6 % 4.0-5.7 MARLENE (test code = MARLENE) Reference RangesNormal: <5.7%Prediabetes: 5.7 - 6.4%Diabetes: > 6.5% Lab Interpretation (test code = 15265-7) Normal [facility]iscoGlycosylated Hemoglobin (A1C)2023-07-03 06:51:13* Test Item Value Reference Range Interpretation Comme [facility] HGB A1C (test code = 4548-4) 5.6 % 4.0-5.7 MARLENE (test code = MARLENE) Reference RangesNormal: <5.7%Prediabetes: 5.7 - 6.4%Diabetes: > 6.5% Lab Interpretation (test code = 44687-0) Normal [facility]Glycosylated Hemoglobin (A1C)2023-07-03 06:51:13* Test Item Value Reference Range Interpretation Comme [facility] HGB A1C (test code = 4548-4) 5.6 % 4.0-5.7 MARLENE (test code = MARLENE) Reference RangesNormal: <5.7%Prediabetes: 5.7 - 6.4%Diabetes: > 6.5% Lab Interpretation (test code = 47333-5) Normal [facility]iscoProthrombin Time / [id number] 03:23:45* Test Item Value Reference Range Interpretation Comme [facility] PROTIME PATIENT (test code = 5964-2) 11.6 10.1-12.6 INR (test code = 6301-6) 1.0 Normal INR <1.1; Warfarin Therapeutic range 2.0 to 3.0 or 2.5 to 3.5, depending upon the indications. Lab Interpretation (test code = 41876-2) Normal [facility] FriscoaPTT2024-03-07 03:23:45* Test Item Value Reference Range Interpretation Comme nts APTT Patient (test code = 3173-2) 36 MARLENE (test code = MARLENE) The [facility] patient population mean normal value for aPTT is 30 seconds. Lab Interpretation (test code = 44043-7) Normal [facility]iscoProthrombin Time / [id number] 03:23:45* Test Item Value Reference Range Interpretation Comme nts PROTIME PATIENT (test code = 5964-2) 11.6 10.1-12.6 INR (test code = 6301-6) 1.0 Normal INR <1.1; Warfarin Therapeutic range 2.0 to 3.0 or 2.5 to 3.5, depending upon the indications. Lab Interpretation (test code = 82234-4) [facility] Test Item Value Reference Range Interpretation Comme nts APTT Patient (test code = 3173-2) MARLENE (test code = MARLENE) The [facility] patient population mean normal value for aPTT is 30 seconds. Lab Interpretation (test code = 46409-9) Normal [facility]Prothrom[facility] / [id number] 03:23:45* Test Item Value Reference Range Interpretation Comme nts PROTIME PATIENT (test code = 5964-2) 11.6 10.1-12.6 INR (test code = 6301-6) 1.0 Normal INR <1.1; Warfarin Therapeutic range 2.0 to 3.0 or 2.5 to 3.5, depending upon the indications. Lab Interpretation (test code = 91838-4) Normal [facility]aPTT2024-03-07 03:23:45* Test Item Value Reference Range Interpretation Comme nts APTT Patient (test code = 3173-2) 36 MARLENE (test code = MARLENE) The [facility] patient population mean normal value for aPTT is 30 seconds. Lab Interpretation (test code = 55396-6) Normal [facility]iscoProthrombin Time / [id number] 03:23:45* Test Item Value Reference Range Interpretation Comme nts PROTIME PATIENT (test code = 5964-2) 11.6 10.1-12.6 INR (test code = 6301-6) 1.0 Normal INR <1.1; Warfarin Therapeutic range 2.0 to 3.0 or 2.5 to 3.5, depending upon the indications. Lab Interpretation (test code = 63451-6) Normal [facility]aPTT2024-03-07 03:23:45* Test Item Value Reference Range Interpretation [facility] AP[facility] Patient (test code = 3173-2) 33 26-36 MARLENE (test code = MARLENE) The [facility] patient population mean normal value for aPTT is 30 seconds. Lab Interpretation (test code = 71020-8) Normal [facility] [id number] 02:38:39* Test Item Value Reference Range Interpretation Commhow[facility] TROPONIN I (test code = 7106447572) 0.077 ng/mL <=0.034 H MARLENE (test code = MARLENE) Reference (Normal) Range (defined by the 99th percentile reference limit): <= 0.034 ng/mL Note: Cardiac troponin begins to rise 3-4 hours after the onset of ischemia. Repeat in 4-6 hours if the sample was drawn within 3-4 hours of the onset of the symptom and found normal. Diagnosis of myocardial injury is made with acute changes in cTn concentrations with at least one serial sample above the 99th percentile upper reference limit (URL), taken together with the patient's clinical presentation. Biotin has been reported to cause a negative bias, interpret results relative to patient's use of biotin. Lab Interpretation (test code = 85603-5) Abnormal [facility] [id number] 02:38:39* Test Item Value Reference Range Interpretation Comme [facility] TROPONIN I (test code = 8858263154) 0.077 ng/mL <=0.034 H MARLENE (test code = MARLENE) Reference (Normal) Range (defined by the 99th percentile reference limit): <= 0.034 ng/mL Note: Cardiac troponin begins to rise 3-4 hours after the onset of ischemia. Repeat in 4-6 hours if the sample was drawn within 3-4 hours of the onset of the symptom and found normal. Diagnosis of myocardial injury is made with acute changes in cTn concentrations with at least one serial sample above the 99th percentile upper reference limit (URL), taken together with the patient's clinical presentation. Biotin has been reported to cause a negative bias, interpret results relative to patient's use of biotin. Lab Interpretation (test code = 32741-7) Abnormal [facility] [id number] 02:38:39* Test Item Value Reference Range Interpretation Comme nts TROPONIN I (test code = 6649800230) 0.077 ng/mL <=0.034 H MARLENE (test code = MARLENE) Reference (Normal) Range (defined by the 99th percentile reference limit): <= 0.034 ng/mL Note: Cardiac troponin begins to rise 3-4 hours after the onset of ischemia. Repeat in 4-6 hours if the sample was drawn within 3-4 hours of the onset of the symptom and found normal. Diagnosis of myocardial injury is made with acute changes in cTn concentrations with at least one serial sample above the 99th percentile upper reference limit (URL), taken together with the patient's clinical presentation. Biotin has been reported to cause a negative bias, interpret results relative to patient's use of biotin. Lab Interpretation (test code = 67321-5) Abnormal [facility] [id number] 02:38:39* Test Item Value Reference Range Interpretation Comme nts TROPONIN I (test code = 6603027405) 0.077 ng/mL <=0.034 H MARLENE (test code = MARLENE) Reference (Normal) Range (defined by the 99th percentile reference limit): <= 0.034 ng/mL Note: Cardiac troponin begins to rise 3-4 hours after the onset of ischemia. Repeat in 4-6 hours if the sample was drawn within 3-4 hours of the onset of the symptom and found normal. Diagnosis of myocardial injury is made with acute changes in cTn concentrations with at least one serial sample above the 99th percentile upper reference limit (URL), taken together with the patient's clinical presentation. Biotin has been reported to cause a negative bias, interpret results relative to patient's use of biotin. Lab Interpretation (test code = 49316-8) Abnormal [facility] Kzx-[id number] 02:36:17* Test Item Value Reference Range Interpretation Comme nts NT-proBNP (test code = 63436-3) 1580 pg/mL <=125 H MARLENE (test code = MARLENE) Positive: Heart Failure Likely Lab Interpretation (test code = 65031-6) Abnormal [facility] Eje-Ylh1819-20-07 02:36:17* Test Item Value Reference Range Interpretation Comme nts NT-proBNP (test code = 01431-9) 1580 pg/mL <=125 H MARLENE (test code = MARLENE) Positive: Heart Failure Likely Lab Interpretation (test code = 54209-9) [facility] Uml-[id number] 02:36:17* Test Item Value Reference Range Interpretation Comme nts NT-proBNP (test code = 98509-9) 1580 pg/mL <=125 H MARLENE (test code = MARLENE) Positive: Heart Failure Likely Lab Interpretation (test code = 63560-7) [facility]normal [facility] Zhe-[id number] 02:36:17* Test Item Value Reference Range Interpretation Comme nts NT-proBNP (test code = 08654-2) 1580 pg/mL <=125 H MARLENE (test code = MARLENE) Positive: Heart Failure Likely Lab Interpretation (test code = 44904-2) Abnormal [facility] Metabolic Panel (19220)2023-07-03 02:27:40* Test Item Value Reference Range Interpretation Comme nts NA (test code = 6849543359) 141 mmol/L 135-145 K (test code = 0688830280) 3.6 mmol/L 3.5-5.0 CL (test code = 6436367617) 111 mmol/L 98-108 H CO2 TOTAL (test code = 4574280957) 26 mmol/L 23-31 AGAP (test code = 4647340428) 4 2-16 BUN (test code = 3070866722) 20 mg/dL 7-23 GLUCOSE (test code = 9917023624) 118 mg/dL 70-110 H CREATININE (test code = 2160-0) 1.55 mg/dL 0.60-1.25 H TOTAL BILI (test code = 1997246766) 0.6 mg/dL 0.1-1.1 CALCIUM (test code = 9831152850) 10.3 mg/dL 8.6-10.6 T PROTEIN (test code = 6972757416) 8.2 g/dL 6.3-8.2 ALBUMIN (test code = 8598444449) 4.0 g/dL 3.5-5.0 ALK PHOS (test code = 0839170718) 81 U/L 34-122 ALTv (test code = 1742-6) 22 U/L 5-50 AST(SGOT) (test code = 4538158099) 46 U/L 13-40 H eGFR (test code = 65199-1) 48.8 mL/min/1.73m2 CKD-EPI eGFR (2020). Assuming creatinine has been stable day-to-day for at least three months, the eGFR indicates Category G3a (45 - 59 mL/min/1.73 m2) Lab Interpretation (test code = 04395-9) [facility]normal [facility] Met[facility] Panel (54073)2023-07-03 02:27:40* Test Item Value Reference Range Interpretation Comme nts NA (test code = 8775014526) 141 mmol/L 135-145 K (test code = 8715747511) 3.6 mmol/L 3.5-5.0 CL (test code = 4411857913) 111 mmol/L 98-108 H CO2 TOTAL (test code = 3862979306) 26 mmol/L 23-31 AGAP (test code = 4153579756) 4 2-16 BUN (test code = 9596485536) 20 mg/dL 7-23 GLUCOSE (test code = 5162665923) 118 mg/dL 70-110 H CREATININE (test code = 2160-0) 1.55 mg/dL 0.60-1.25 H TOTAL BILI (test code = 2758053681) 0.6 mg/dL 0.1-1.1 CALCIUM (test code = 5626663458) 10.3 mg/dL 8.6-10.6 T PROTEIN (test code = 3238732809) 8.2 g/dL 6.3-8.2 ALBUMIN (test code = 6035269394) 4.0 g/dL 3.5-5.0 ALK PHOS (test code = 8926279720) 81 U/L 34-122 ALTv (test code = 1742-6) 22 U/L 5-50 AST(SGOT) (test code = 0301907550) 46 U/L 13-40 H eGFR (test code = 12920-0) 48.8 mL/min/1.73m2 CKD-EPI eGFR (2020). Assuming creatinine has been stable day-to-day for at least three months, the eGFR indicates Category G3a (45 - 59 mL/min/1.73 m2) Lab Interpretation (test code = 27894-2) Abnormal [facility]. Metabolic Panel (16843)2023-07-03 02:27:40* Test Item Value Reference Range Interpretation Comme nts NA (test code = 1183049131) 141 mmol/L 135-145 K (test code = 9082255064) 3.6 mmol/L 3.5-5.0 CL (test code = 9279284282) 111 mmol/L 98-108 H CO2 TOTAL (test code = 4890985787) 26 mmol/L 23-31 AGAP (test code = 3307441769) 4 2-16 BUN (test code = 4388038904) 20 mg/dL 7-23 GLUCOSE (test code = 0761416644) 118 mg/dL 70-110 H CREATININE (test code = 2160-0) 1.55 mg/dL 0.60-1.25 H TOTAL BILI (test code = 6183689473) 0.6 mg/dL 0.1-1.1 CALCIUM (test code = 8144252282) 10.3 mg/dL 8.6-10.6 T PROTEIN (test code = 2800572176) 8.2 g/dL 6.3-8.2 ALBUMIN (test code = 8977005341) 4.0 g/dL 3.5-5.0 ALK PHOS (test code = 0207636728) 81 U/L 34-122 ALTv (test code = 1742-6) 22 U/L 5-50 AST(SGOT) (test code = 8907297756) 46 U/L 13-40 H eGFR (test code = 55805-8) 48.8 mL/min/1.73m2 CKD-EPI eGFR (2020). Assuming creatinine has been stable day-to-day for at least three months, the eGFR indicates Category G3a (45 - 59 mL/min/1.73 m2) Lab Interpretation (test code = 79093-6) Abnormal [facility]. Metabolic Panel (77360)2023-07-03 02:27:40* Test Item Value Reference Range Interpretation Comme nts NA (test code = 0447471425) 141 mmol/L 135-145 K (test code = 8767287349) 3.6 mmol/L 3.5-5.0 CL (test code = 0614408422) 111 mmol/L 98-108 H CO2 TOTAL (test code = 7882408675) 26 mmol/L 23-31 AGAP (test code = 8046840610) 4 2-16 BUN (test code = 3721121140) 20 mg/dL 7-23 GLUCOSE (test code = 4478409460) 118 mg/dL 70-110 H CREATININE (test code = 2160-0) 1.55 mg/dL 0.60-1.25 H TOTAL BILI (test code = 6263119575) 0.6 mg/dL 0.1-1.1 CALCIUM (test code = 2975160433) 10.3 mg/dL 8.6-10.6 T PROTEIN (test code = 8220750615) 8.2 g/dL 6.3-8.2 ALBUMIN (test code = 2062978632) 4.0 g/dL 3.5-5.0 ALK PHOS (test code = 0585171447) 81 U/L 34-122 ALTv (test code = 1742-6) 22 U/L 5-50 AST(SGOT) (test code = 6505616743) 46 U/L 13-40 H eGFR (test code = 61478-9) 48.8 mL/min/1.73m2 CKD-EPI eGFR (2020). Assuming creatinine has been stable day-to-day for at least three months, the eGFR indicates Category G3a (45 - 59 mL/min/1.73 m2) Lab Interpretation (test code = 07097-3) Abnormal [facility] with Zcei5228-95-96 02:14:58* Test Item Value Reference Range Interpretation Comme nts WBC (test code = 6690-2) 4.90 4.20-10.70 RBC (test code = 789-8) 4.25 4.26-5.52 L HGB (test code = 718-7) 13.2 g/dL 12.2-16.4 HCT (test code = 4544-3) 39.9 % 38.4-49.3 MCV (test code = 787-2) 93.9 fL 81.7-95.6 MCH (test code = 785-6) 31.1 pg 26.1-32.7 MCHC (test code = 786-4) 33.1 g/dL 31.2-35.0 RDW-SD (test code = 12445-0) 48.3 fL 38.5-51.6 RDW-CV (test code = 788-0) 14.2 % 12.1-15.4 PLT (test code = 777-3) 163 150-328 MPV (test code = 20584-4) 11.3 fL 9.8-13.0 NRBC/100 WBC (test code = 5649499444) 0.0 0.0-10.0 NRBC x10^3 (test code = 2390497402) See_Comment [Automated messa ge] The system which generated this result transmitted reference range: 10*3/?L. The reference range was not used to interpret this result as normal/abnormal. GRAN MAT (NEUT) % (test code = 770-8) 61.1 % IMM GRAN % (test code = 6393206679) 0.40 % LYMPH % (test code = 736-9) 21.8 % MONO % (test code = 5905-5) 11.0 % EOS % (test code = 713-8) 4.5 % BASO % (test code = 706-2) 1.2 % GRAN MAT x10^3(ANC) (test code = 3800492796) 2.99 10*3/uL 1.99-6.95 IMM GRAN x10^3 (test code = 8176476508) 0.00-0.06 LYMPH x10^3 (test code = 731-0) 1.07 10*3/uL 1.09-3.23 L MONO x10^3 (test code = 742-7) 0.54 10*3/uL 0.36-1.02 EOS x10^3 (test code = 711-2) 0.22 10*3/uL 0.06-0.53 BASO x10^3 (test code = 704-7) 0.06 10*3/uL 0.01-0.09 Lab Interpretation (test code = 28454-2) Abnormal [facility] with [id number] 02:14:58* Test Item Value Reference Range Interpretation Comme nts WBC (test code = 6690-2) 4.90 4.20-10.70 RBC (test code = 789-8) 4.25 4.26-5.52 L HGB (test code = 718-7) 13.2 g/dL 12.2-16.4 HCT (test code = 4544-3) 39.9 % 38.4-49.3 MCV (test code = 787-2) 93.9 fL 81.7-95.6 MCH (test code = 785-6) 31.1 pg 26.1-32.7 MCHC (test code = 786-4) 33.1 g/dL 31.2-35.0 RDW-SD (test code = 32926-2) 48.3 fL 38.5-51.6 RDW-CV (test code = 788-0) 14.2 % 12.1-15.4 PLT (test code = 777-3) 163 150-328 MPV (test code = 37067-7) 11.3 fL 9.8-13.0 NRBC/100 WBC (test code = 5015076761) 0.0 0.0-10.0 NRBC x10^3 (test code = 8210176729) See_Comment [Automated messa ge] The system which generated this result transmitted reference range: 10*3/?L. The reference range was not used to interpret this result as normal/abnormal. GRAN MAT (NEUT) % (test code = 770-8) 61.1 % IMM GRAN % (test code = 0640876142) 0.40 % LYMPH % (test code = 736-9) 21.8 % MONO % (test code = 5905-5) 11.0 % EOS % (test code = 713-8) 4.5 % BASO % (test code = 706-2) 1.2 % GRAN MAT x10^3(ANC) (test code = 4567401558) 2.99 10*3/uL 1.99-6.95 IMM GRAN x10^3 (test code = 2280538316) 0.00-0.06 LYMPH x10^3 (test code = 731-0) 1.07 10*3/uL 1.09-3.23 L MONO x10^3 (test code = 742-7) 0.54 10*3/uL 0.36-1.02 EOS x10^3 (test code = 711-2) 0.22 10*3/uL 0.06-0.53 BASO x10^3 (test code = 704-7) 0.06 10*3/uL 0.01-0.09 Lab Interpretation (test code = 26826-8) Abnormal [facility] with Lwjd7550-22-21 02:14:58* Test Item Value Reference Range Interpretation Comme nts WBC (test code = 6690-2) 4.90 4.20-10.70 RBC (test code = 789-8) 4.25 4.26-5.52 L HGB (test code = 718-7) 13.2 g/dL 12.2-16.4 HCT (test code = 4544-3) 39.9 % 38.4-49.3 MCV (test code = 787-2) 93.9 fL 81.7-95.6 MCH (test code = 785-6) 31.1 pg 26.1-32.7 MCHC (test code = 786-4) 33.1 g/dL 31.2-35.0 RDW-SD (test code = 53677-8) 48.3 fL 38.5-51.6 RDW-CV (test code = 788-0) 14.2 % 12.1-15.4 PLT (test code = 777-3) 163 150-328 MPV (test code = 99514-9) 11.3 fL 9.8-13.0 NRBC/100 WBC (test code = 5596662266) 0.0 0.0-10.0 NRBC x10^3 (test code = 9625235995) See_Comment [Automated messa ge] The system which generated this result transmitted reference range: 10*3/?L. The reference range was not used to interpret this result as normal/abnormal. GRAN MAT (NEUT) % (test code = 770-8) 61.1 % IMM GRAN % (test code = 6168148413) 0.40 % LYMPH % (test code = 736-9) 21.8 % MONO % (test code = 5905-5) 11.0 % EOS % (test code = 713-8) 4.5 % BASO % (test code = 706-2) 1.2 % GRAN MAT x10^3(ANC) (test code = 7329976271) 2.99 10*3/uL 1.99-6.95 IMM GRAN x10^3 (test code = 9802154877) 0.00-0.06 LYMPH x10^3 (test code = 731-0) 1.07 10*3/uL 1.09-3.23 L MONO x10^3 (test code = 742-7) 0.54 10*3/uL 0.36-1.02 EOS x10^3 (test code = 711-2) 0.22 10*3/uL 0.06-0.53 BASO x10^3 (test code = 704-7) 0.06 10*3/uL 0.01-0.09 Lab Interpretation (test code = 95764-6) Abnormal [facility] with Aesr7367-29-36 02:14:58* Test Item Value Reference Range Interpretation Comme nts WBC (test code = 6690-2) 4.90 4.20-10.70 RBC (test code = 789-8) 4.25 4.26-5.52 L HGB (test code = 718-7) 13.2 g/dL 12.2-16.4 HCT (test code = 4544-3) 39.9 % 38.4-49.3 MCV (test code = 787-2) 93.9 fL 81.7-95.6 MCH (test code = 785-6) 31.1 pg 26.1-32.7 MCHC (test code = 786-4) 33.1 g/dL 31.2-35.0 RDW-SD (test code = 46017-7) 48.3 fL 38.5-51.6 RDW-CV (test code = 788-0) 14.2 % 12.1-15.4 PLT (test code = 777-3) 163 150-328 MPV (test code = 18595-9) 11.3 fL 9.8-13.0 NRBC/100 WBC (test code = 4649530190) 0.0 0.0-10.0 NRBC x10^3 (test code = 8382223087) See_Comment [Automated messa ge] The system which generated this result transmitted reference range: 10*3/?L. The reference range was not used to interpret this result as normal/abnormal. GRAN MAT (NEUT) % (test code = 770-8) 61.1 % IMM GRAN % (test code = 4710637244) 0.40 % LYMPH % (test code = 736-9) 21.8 % MONO % (test code = 5905-5) 11.0 % EOS % (test code = 713-8) 4.5 % BASO % (test code = 706-2) 1.2 % GRAN MAT x10^3(ANC) (test code = 8156590548) 2.99 10*3/uL 1.99-6.95 IMM GRAN x10^3 (test code = 9443620218) 0.00-0.06 LYMPH x10^3 (test code = 731-0) 1.07 10*3/uL 1.09-3.23 L MONO x10^3 (test code = 742-7) 0.54 10*3/uL 0.36-1.02 EOS x10^3 (test code = 711-2) 0.22 10*3/uL 0.06-0.53 BASO x10^3 (test code = 704-7) 0.06 10*3/uL 0.01-0.09 Lab Interpretation (test code = 47157-3) Abnormal [facility]2024-03-07 01:45:00Nicole Rocha MD ? ? 07/02/2023 ?8:54 PMCritical Care Performed by: Nicole Rocha MDAuthorized by: Nicole Rocha MD ?Critical care provider statement: ?Critical care time (minutes): ?34 ?Critical care was necessary to treat or prevent imminent or life-threatening deterioration of the following conditions: ?Cardiac failure and circulatory failure ?Critical care was time spent personally by me on the following activities: ?Blood draw for specimens, discussions with consultants, orderingand performing treatments and interventions, ordering and review of laboratory studies, ordering and review of radiographic studies, re-evaluation of patient's condition and review of old chartsUnThe [facility] Cancer CenterPanretinal Photocoagulation - OD - Right Oof3012-05-90 17:38:37Time OutConfirmed correct patient, procedure, site, and patient consented. AnesthesiaTopical anesthesia was used. Anesthetic medications included Lidocaine 2%. Laser InformationThe type of laser was argon. Color was green. The duration in seconds was 100. Laser power was 250. Total spots was 209. Post-op(Pateint had significant discomfort so procedure had to be aborted. Patient wants to come backto complete the procedure). There were no complications. Diandra Ji MD, supervised Dr. Dominguez perform intravitreal PRP OD.[facility]iscoMagnesium [id number] 20:53:34* Test Item Value Reference Range Interpretation Comme nts MAGNESIUM (test code = 1199771171) 1.8 mg/dL 1.7-2.4 Lab Interpretation (test cod e = 19994-2) Normal [facility] (NA, K, CL, CO2, Glucose, BUN, Creatinine, CA)2023-05-23 20:53:14* Test Item Value Reference Range Interpretation Comme nts NA (test code = 7911937926) 141 mmol/L 135-145 K (test code = 9670574697) 4.8 mmol/L 3.5-5.0 CL (test code = 4696651402) 108 mmol/L 98-108 CO2 TOTAL (test code = 9556031198) 30 mmol/L 23-31 AGAP (test code = 9574024554) 3 2-16 BUN (test code = 1936061234) 18 mg/dL 7-23 GLUCOSE (test code = 3249730634) 90 mg/dL 70-110 CREATININE (test code = 4885306461) 1.55 mg/dL 0.60-1.25 H CALCIUM (test code = 9741923302) 10.5 mg/dL 8.6-10.6 eGFR (test code = 11813-4) 48.8 mL/min/1.73m2 CKD-EPI eGFR (2020). Assuming creatinine has been stable day-to-day for at least three months, the eGFR indicates Category G3a (45 - 59 mL/min/1.73 m2) Lab Interpretation (test code = 17091-9) Abnormal [facility] FriscoPhosphorus Xtlmf9807-94-13 20:53:13* Test Item Value Reference Range Interpretation Comme nts PHOSPHORUS (test code = 8280837395) 2.5 mg/dL 2.5-5.0 Lab Interpretation (test cod e = 74017-5) Normal [facility] FriscoCBC with Vnbxxhqhavtn0586-85-73 18:39:51* Test Item Value Reference Range Interpretation Comme nts WBC (test code = 6690-2) 5.14 See_Comment [Automated messa ge] The system which generated this result transmitted reference range: 4.20 - 10.70 10*3/?L. The reference range was not used to interpret this result as normal/abnormal. RBC (test code = 789-8) 4.33 See_Comment [Automated messa ge] The system which generated this result transmitted reference range: 4.26 - 5.52 10*6/?L. The reference range was not used to interpret this result as normal/abnormal. HGB (test code = 718-7) 13.4 g/dL 12.2-16.4 HCT (test code = 4544-3) 41.7 % 38.4-49.3 MCV (test code = 787-2) 96.3 fL 81.7-95.6 H MCH (test code = 785-6) 30.9 pg 26.1-32.7 MCHC (test code = 786-4) 32.1 g/dL 31.2-35.0 RDW-SD (test code = 74076-0) 52.6 fL 38.5-51.6 H RDW-CV (test code = 788-0) 14.8 % 12.1-15.4 PLT (test code = 777-3) 145 See_Comment L [Automated messa ge] The system which generated this result transmitted reference range: 150 - 328 10*3/?L. The reference range was not used to interpret this result as normal/abnormal. MPV (test code = 26616-6) 12.2 fL 9.8-13.0 NRBC/100 WBC (test code = 7218619839) 0.0 See_Comment [Automated me ssage] The system which generated this result transmitted reference range: 0.0 - 10.0 /100 WBCs. The reference range was not used to interpret this result as normal/abnormal. NRBC x10^3 (test code = 9132376062) See_Comment [Automated messa ge] The system which generated this result transmitted reference range: 10*3/?L. The reference range was not used to interpret this result as normal/abnormal. GRAN MAT (NEUT) % (test code = 770-8) 64.1 % IMM GRAN % (test code = 4325685385) 0.20 % LYMPH % (test code = 736-9) 19.5 % MONO % (test code = 5905-5) 9.9 % EOS % (test code = 713-8) 4.5 % BASO % (test code = 706-2) 1.8 % GRAN MAT x10^3(ANC) (test code = 8245346802) 3.30 10*3/uL 1.99-6.95 IMM GRAN x10^3 (test code = 9554351706) 0.00-0.06 LYMPH x10^3 (test code = 731-0) 1.00 10*3/uL 1.09-3.23 L MONO x10^3 (test code = 742-7) 0.51 10*3/uL 0.36-1.02 EOS x10^3 (test code = 711-2) 0.23 10*3/uL 0.06-0.53 BASO x10^3 (test code = 704-7) 0.09 10*3/uL 0.01-0.09 Lab Interpretation (test code = 88467-6) Abnormal [facility] FriscoIntravitreal Injection, Pharmacologic Agent - OD - Right Png8442-51-76 16:46:19Time Out05/02/2023. 10:42 AM. Confirmed correct patient, procedure, site, and patient consented. AnesthesiaTopical anesthesia was used. Anesthetic medications included Lidocaine 3.5% gel, Proparacaine 0.5%. ProcedurePreparation included 5% betadine to ocular surface, eyelid speculum. A 32 gauge needle was used. Injection:1.25 mg bevacizumab 1.25 mg/0.05 mL ?Route: Intravitreal, Site: Right Eye ?[facility]: [address]-0, Lot: [id number], Expiration date: 08/07/2023 Post-opPost injection exam found visual acuity of at least counting fingers. The patient tolerated the procedure well. There were no complications. Notes Date of Service: 05/02/2023 Time out:Individual performing procedure identifiedCorrect patientCorrect siteCorrect procedure Surgeon: Diandra Tillman MD Eye: right PROCEDURE: IVT AvastinOD Allergies: No Known Allergies Prep: Betadine 5% ? Anesthesia: Akten 3.5% BIPIN R DUKE ?05/02/2023 ?10:24 AM RTC in 3-4 weeks for DFE/OCT/IVFA Diandra Tillman MDUnSt. Anthony's Hospital MOLECULAR [id number] 15:17:13* Test Item Value Reference Range Interpretation Comme [facility] POCT Molecular Strep (test c ode = 37003-7) Negative Negative Lab Interpretation (test cod e = 24320-8) Normal [facility] MOLECULAR [id number] 15:17:13* Test Item Value Reference Range Interpretation Comme [facility] POCT Molecular Strep (test c ode = 36070-5) Negative Negative Lab Interpretation (test cod e = 53932-6) Normal [facility] FriscoBK VIRUS DNA, [id number] 19:53:32 * Test Item Value Reference Range Interpretation Comme [facility] Specimen Tested (test code = 4636314862) Plasma BK Virus DNA - log copies/mL (test code = 2064527728) See_Comment [Automated message] The system which generated this result transmitted reference range: <2.7 log copies/mL. The reference range was not used to interpret this result as normal/abnormal. BK Virus DNA - copies/mL (test code = 7861070544) See_Comment [Automated message] The system which generated this result transmitted reference range: <500 copies/mL. The reference range was not used to interpret this result as normal/abnormal. MARLENE (test code = MARLENE) Test Information: BK Virus DNA, Quantitation. The quantitative range of this assay is 2.7 - 6.7 log copies/mL or 500 - 5,000,000 copies/mL. ?A negative result (less than 2.7 log copies/mL or less than 500 copies/mL) does not rule out the presence of PCR inhibitors in the patient specimen or BK virus DNA concentrations below the level of detection by the assay. Inhibition may also lead to underestimation of viral quantitation. ?The limit of quantification for this DNA assay is 2.7 log copies/mL (500 copies/mL). ?If the assay DID NOT DETECT the virus, the test result will be reported as "<2.7 log copies/mL (<500 copies/mL)". If the assay DETECTED the presence of the virus but was not able to accurately quantify the number of copies, the test result will be reported as "Detected, not quantifiable." No international standard is currently available for calibration of this assay. Caution should be taken when interpreting results generated by different assay methodologies. Indeterminate: ?Unable to generate a valid test result on this specimen. ?Please submit a new specimen for repeat testing if clinically indicated. This is a laboratory developed test using a cloth trimmer hand labeled ASR (Analyte Specific Reagent) as the reagent providing the specificity of the assay. This test was developed and its performance characteristics determined by [facility] Clinical Microbiology Laboratory. It has not been cleared or approved by the U.S. Food and Drug Administration; however, the FDA has determined that such clearance or approval is not necessary. This test is used for clinical purposes. It should not be regarded as investigational or for research. This laboratory is certified under the Clinical Laboratory Improvement Amendments of 1988 (CLIA-88) as qualified to perform high complexity clinical laboratory testing. [facility] FriscoTacrolimus, Dlvxz2559-99-92 15:46:25FK 506<3ng/mL09/25/2022 10:46 AM [facility] SERVICESTarget/Therapeutic Range KIDNEY ? Early (<3 mo) ? ? 8-12 ? Late ?(>3 mo) ? ? 5-10 ?SPK / AIDEN ?Early (<3 mo) ? ? 10-15 ? Mid ? (3-6 mo) ? ?8-10 ? Late ?(>6 mo) ? ? 5-8 ?LIVER ? Early (<3 mo) ?HCV: ? 5-7 ?Tumor: ? ? ? 5-7 ?Autoimmune: ?8-10 ? Late (>3 mo)? ? ?~5 ?HEART ? Early (<6 mo) ? ? 12-15 ? Late ?(>6 mo) ? ? 8-12 ?LUNG ? Early (<6 mo) ? ? 12-15 ? Mid ? (7-12 mo) ? 10-15 ? Late ?(>12 mo) ? ?8-10 Method by: ?[employer], Patient Day Coordinator [id number] University of [facility]. Anderson Cancer CenterBasic Metabolic Panel (NA, K, CL, CO2, Glucose, BUN, Creatinine, CA)2022-09-24 22:18:31* Test Item Value Reference Range Interpretation Comme nts NA (test code = 8031112239) 140 mmol/L 135-145 K (test code = 1829703984) 3.9 mmol/L 3.5-5.0 CL (test code = 1956937719) 107 mmol/L 98-108 CO2 TOTAL (test code = 2670908377) 28 mmol/L 23-31 AGAP (test code = 9633915549) 5 2-16 BUN (test code = 2032233488) 15 mg/dL 7-23 GLUCOSE (test code = 1987374556) 99 mg/dL 70-110 CREATININE (test code = 8090202484) 1.53 mg/dL 0.60-1.25 H CALCIUM (test code = 2833494012) 10.2 mg/dL 8.6-10.6 eGFR (test code = 5436567189) 45.8 mL/min/1.73m2 MARLENE (test code = MARLENE) Association [...] imaging tests). Lab Interpretation (test code = 21241-6) Abnormal [facility] FriscoMagnesium Cnzqm9101-54-19 22:18:31* Test Item Value Reference Range Interpretation Comme nts MAGNESIUM (test code = 2322557852) 1.7 mg/dL 1.7-2.4 Lab Interpretation (test cod e = 40284-4) Normal [facility] Frisco[facility] [id number] 22:18:11* Test Item Value Reference Range Interpretation Comme nts PHOSPHORUS (test code = 1338888243) 2.8 mg/dL 2.5-5.0 Lab Interpretation (test cod e = 68933-6) Normal [facility] with [id number] 21:06:57* Test Item Value Reference Range Interpretation Comme nts WBC (test code = 6690-2) 5.73 See_Comment [Automated messa ge] The system which generated this result transmitted reference range: 4.20 - 10.70 10*3/?L. The reference range was not used to interpret this result as normal/abnormal. RBC (test code = 789-8) 3.87 See_Comment L [Automated messa ge] The system which generated this result transmitted reference range: 4.26 - 5.52 10*6/?L. The reference range was not used to interpret this result as normal/abnormal. HGB (test code = 718-7) 11.6 g/dL 12.2-16.4 L HCT (test code = 4544-3) 36.3 % 38.4-49.3 L MCV (test code = 787-2) 93.8 fL 81.7-95.6 MCH (test code = 785-6) 30.0 pg 26.1-32.7 MCHC (test code = 786-4) 32.0 g/dL 31.2-35.0 RDW-SD (test code = 00459-8) 46.5 fL 38.5-51.6 RDW-CV (test code = 788-0) 13.7 % 12.1-15.4 PLT (test code = 777-3) 150 See_Comment [Automated messa ge] The system which generated this result transmitted reference range: 150 - 328 10*3/?L. The reference range was not used to interpret this result as normal/abnormal. MPV (test code = 21978-7) 11.2 fL 9.8-13.0 NRBC/100 WBC (test code = 7448150672) 0.0 See_Comment [Automated [employer] ssage] The system which generated this result transmitted reference range: 0.0 - 10.0 /100 WBCs. The reference range was not used to interpret this result as normal/abnormal. NRBC x10^3 (test code = 6022146910) See_Comment [Automated messa ge] The system which generated this result transmitted reference range: 10*3/?L. The reference range was not used to interpret this result as normal/abnormal. GRAN MAT (NEUT) % (test code = 770-8) 63.0 % IMM GRAN % (test code = 6905329429) 0.30 % LYMPH % (test code = 736-9) 19.5 % MONO % (test code = 5905-5) 11.7 % EOS % (test code = 713-8) 4.5 % BASO % (test code = 706-2) 1.0 % GRAN MAT x10^3(ANC) (test code = 7319705428) 3.60 10*3/uL 1.99-6.95 IMM GRAN x10^3 (test code = 8159210027) 0.00-0.06 LYMPH x10^3 (test code = 731-0) 1.12 10*3/uL 1.09-3.23 MONO x10^3 (test code = 742-7) 0.67 10*3/uL 0.36-1.02 EOS x10^3 (test code = 711-2) 0.26 10*3/uL 0.06-0.53 BASO x10^3 (test code = 704-7) 0.06 10*3/uL 0.01-0.09 Lab Interpretation (test code = 48461-5) [facility] [id number] 00:00:00* Test Item Value Reference Range Interpretation Comme nts DD-cfDNA (External Results) (test code = 5126) 0.55 <=1.0 [facility], Ddtks9685-82-37 14:05:00* Test Item Value Reference Range Interpretation Comme nts FK 506 (test code = 9629915494) 7 ng/mL MARLENE (test code = MARLENE) Target/Therapeutic Range KIDNEY ? Early (<3 mo) ? ? [...] ?(>12 mo) ? ?8-10 Method by: ?Chemiflex, Patient Day Coordinator i1000 [facility], Qrtwh9547-05-54 14:05:00* Test Item Value Reference Range Interpretation Comme nts FK 506 (test code = 3810700483) 7 ng/mL MARLENE (test code = MARLENE) Target/Therapeutic Range KIDNEY ? Early (<3 mo) ? ? [...] ?(>12 mo) ? ?8-10 Method by: ?Chemiflex, Patient Day Coordinator i1000 [facility], Iajqm6509-46-17 14:05:00* Test Item Value Reference Range Interpretation Comme nts FK 506 (test code = 1752169285) 7 ng/mL MARLENE (test code = MARLENE) Target/Therapeutic Range KIDNEY ? Early (<3 mo) ? ? [...] ?(>12 mo) ? ?8-10 Method by: ?Chemiflex, Patient Day Coordinator i1000 [facility], Gdtmg3137-49-58 14:05:00* Test Item Value Reference Range Interpretation Comme nts FK 506 (test code = 8680388531) 7 ng/mL MARLENE (test code = MARLENE) Target/Therapeutic Range KIDNEY ? Early (<3 mo) ? ? [...] ?(>12 mo) ? ?8-10 Method by: ?Chemiflex, Patient Day Coordinator i1000 [facility], Vidxp7063-29-69 14:05:00* Test Item Value Reference Range Interpretation Comme nts FK 506 (test code = 1710534419) 7 ng/mL MARLENE (test code = MARLENE) Target/Therapeutic Range KIDNEY ? Early (<3 mo) ? ? [...] ?(>12 mo) ? ?8-10 Method by: ?Chemiflex, Patient Day Coordinator i1000 [facility] with Dfeedqgpokon1709-83-81 21:08:35* Test Item Value Reference Range Interpretation Comme nts WBC (test code = 6690-2) 7.80 See_Comment [Automated messa ge] The system which generated this result transmitted reference range: 4.20 - 10.70 10*3/?L. The reference range was not used to interpret this result as normal/abnormal. RBC (test code = 789-8) 4.22 See_Comment L [Automated [employer] ge] The system which generated this result transmitted reference range: 4.26 - 5.52 10*6/?L. The reference range was not used to interpret this result as normal/abnormal. HGB (test code = 718-7) 12.5 g/dL 12.2-16.4 HCT (test code = 4544-3) 39.9 % 38.4-49.3 MCV (test code = 787-2) 94.5 fL 81.7-95.6 MCH (test code = 785-6) 29.6 pg 26.1-32.7 MCHC (test code = 786-4) 31.3 g/dL 31.2-35.0 RDW-SD (test code = 71976-4) 46.7 fL 38.5-51.6 RDW-CV (test code = 788-0) 13.3 % 12.1-15.4 PLT (test code = 777-3) 145 See_Comment L [Automated messa ge] The system which generated this result transmitted reference range: 150 - 328 10*3/?L. The reference range was not used to interpret this result as normal/abnormal. MPV (test code = 39270-1) 11.8 fL 9.8-13.0 NRBC/100 WBC (test code = 4294318632) 0.0 See_Comment [Automated me ssage] The system which generated this result transmitted reference range: 0.0 - 10.0 /100 WBCs. The reference range was not used to interpret this result as normal/abnormal. NRBC x10^3 (test code = 1377332285) See_Comment [Automated messa ge] The system which generated this result transmitted reference range: 10*3/?L. The reference range was not used to interpret this result as normal/abnormal. GRAN MAT (NEUT) % (test code = 770-8) 80.2 % IMM GRAN % (test code = 1809833331) 0.30 % LYMPH % (test code = 736-9) 8.6 % MONO % (test code = 5905-5) 8.3 % EOS % (test code = 713-8) 1.8 % BASO % (test code = 706-2) 0.8 % GRAN MAT x10^3(ANC) (test code = 3791330505) 6.26 10*3/uL 1.99-6.95 IMM GRAN x10^3 (test code = 3035126386) 0.00-0.06 LYMPH x10^3 (test code = 731-0) 0.67 10*3/uL 1.09-3.23 L MONO x10^3 (test code = 742-7) 0.65 10*3/uL 0.36-1.02 EOS x10^3 (test code = 711-2) 0.14 10*3/uL 0.06-0.53 BASO x10^3 (test code = 704-7) 0.06 10*3/uL 0.01-0.09 Lab Interpretation (test code = 34508-0) Abnormal [facility] with Gxnqqtqvqafs4245-04-92 21:08:35* Test Item Value Reference Range Interpretation Comme nts WBC (test code = 6690-2) 7.80 See_Comment [Automated messa ge] The system which generated this result transmitted reference range: 4.20 - 10.70 10*3/?L. The reference range was not used to interpret this result as normal/abnormal. RBC (test code = 789-8) 4.22 See_Comment L [Automated messa ge] The system which generated this result transmitted reference range: 4.26 - 5.52 10*6/?L. The reference range was not used to interpret this result as normal/abnormal. HGB (test code = 718-7) 12.5 g/dL 12.2-16.4 HCT (test code = 4544-3) 39.9 % 38.4-49.3 MCV (test code = 787-2) 94.5 fL 81.7-95.6 MCH (test code = 785-6) 29.6 pg 26.1-32.7 MCHC (test code = 786-4) 31.3 g/dL 31.2-35.0 RDW-SD (test code = 53303-1) 46.7 fL 38.5-51.6 RDW-CV (test code = 788-0) 13.3 % 12.1-15.4 PLT (test code = 777-3) 145 See_Comment L [Automated messa ge] The system which generated this result transmitted reference range: 150 - 328 10*3/?L. The reference range was not used to interpret this result as normal/abnormal. MPV (test code = 63647-8) 11.8 fL 9.8-13.0 NRBC/100 WBC (test code = 8827303504) 0.0 See_Comment [Automated [employer] ssage] The system which generated this result transmitted reference range: 0.0 - 10.0 /100 WBCs. The reference range was not used to interpret this result as normal/abnormal. NRBC x10^3 (test code = 1854303521) See_Comment [Automated messa ge] The system which generated this result transmitted reference range: 10*3/?L. The reference range was not used to interpret this result as normal/abnormal. GRAN MAT (NEUT) % (test code = 770-8) 80.2 % IMM GRAN % (test code = 1572045416) 0.30 % LYMPH % (test code = 736-9) 8.6 % MONO % (test code = 5905-5) 8.3 % EOS % (test code = 713-8) 1.8 % BASO % (test code = 706-2) 0.8 % GRAN MAT x10^3(ANC) (test code = 4914774279) 6.26 10*3/uL 1.99-6.95 IMM GRAN x10^3 (test code = 8264087844) 0.00-0.06 LYMPH x10^3 (test code = 731-0) 0.67 10*3/uL 1.09-3.23 L MONO x10^3 (test code = 742-7) 0.65 10*3/uL 0.36-1.02 EOS x10^3 (test code = 711-2) 0.14 10*3/uL 0.06-0.53 BASO x10^3 (test code = 704-7) 0.06 10*3/uL 0.01-0.09 Lab Interpretation (test code = 53245-9) Abnormal [facility] with Qglaeigvjerv4953-53-77 21:08:35* Test Item Value Reference Range Interpretation Comme nts WBC (test code = 6690-2) 7.80 See_Comment [Automated messa ge] The system which generated this result transmitted reference range: 4.20 - 10.70 10*3/?L. The reference range was not used to interpret this result as normal/abnormal. RBC (test code = 789-8) 4.22 See_Comment L [Automated messa ge] The system which generated this result transmitted reference range: 4.26 - 5.52 10*6/?L. The reference range was not used to interpret this result as normal/abnormal. HGB (test code = 718-7) 12.5 g/dL 12.2-16.4 HCT (test code = 4544-3) 39.9 % 38.4-49.3 MCV (test code = 787-2) 94.5 fL 81.7-95.6 MCH (test code = 785-6) 29.6 pg 26.1-32.7 MCHC (test code = 786-4) 31.3 g/dL 31.2-35.0 RDW-SD (test code = 29737-4) 46.7 fL 38.5-51.6 RDW-CV (test code = 788-0) 13.3 % 12.1-15.4 PLT (test code = 777-3) 145 See_Comment L [Automated messa ge] The system which generated this result transmitted reference range: 150 - 328 10*3/?L. The reference range was not used to interpret this result as normal/abnormal. MPV (test code = 73689-0) 11.8 fL 9.8-13.0 NRBC/100 WBC (test code = 0639103607) 0.0 See_Comment [Automated me ssage] The system which generated this result transmitted reference range: 0.0 - 10.0 /100 WBCs. The reference range was not used to interpret this result as normal/abnormal. NRBC x10^3 (test code = 8758985126) See_Comment [Automated messa ge] The system which generated this result transmitted reference range: 10*3/?L. The reference range was not used to interpret this result as normal/abnormal. GRAN MAT (NEUT) % (test code = 770-8) 80.2 % IMM GRAN % (test code = 7335447708) 0.30 % LYMPH % (test code = 736-9) 8.6 % MONO % (test code = 5905-5) 8.3 % EOS % (test code = 713-8) 1.8 % BASO % (test code = 706-2) 0.8 % GRAN MAT x10^3(ANC) (test code = 4953246355) 6.26 10*3/uL 1.99-6.95 IMM GRAN x10^3 (test code = 8724181333) 0.00-0.06 LYMPH x10^3 (test code = 731-0) 0.67 10*3/uL 1.09-3.23 L MONO x10^3 (test code = 742-7) 0.65 10*3/uL 0.36-1.02 EOS x10^3 (test code = 711-2) 0.14 10*3/uL 0.06-0.53 BASO x10^3 (test code = 704-7) 0.06 10*3/uL 0.01-0.09 Lab Interpretation (test code = 19811-0) Abnormal [facility] with Ycdqsqhwegrg6021-73-36 21:08:35* Test Item Value Reference Range Interpretation Comme nts WBC (test code = 6690-2) 7.80 See_Comment [Automated messa ge] The system which generated this result transmitted reference range: 4.20 - 10.70 10*3/?L. The reference range was not used to interpret this result as normal/abnormal. RBC (test code = 789-8) 4.22 See_Comment L [Automated messa ge] The system which generated this result transmitted reference range: 4.26 - 5.52 10*6/?L. The reference range was not used to interpret this result as normal/abnormal. HGB (test code = 718-7) 12.5 g/dL 12.2-16.4 HCT (test code = 4544-3) 39.9 % 38.4-49.3 MCV (test code = 787-2) 94.5 fL 81.7-95.6 MCH (test code = 785-6) 29.6 pg 26.1-32.7 MCHC (test code = 786-4) 31.3 g/dL 31.2-35.0 RDW-SD (test code = 59817-6) 46.7 fL 38.5-51.6 RDW-CV (test code = 788-0) 13.3 % 12.1-15.4 PLT (test code = 777-3) 145 See_Comment L [Automated messa ge] The system which generated this result transmitted reference range: 150 - 328 10*3/?L. The reference range was not used to interpret this result as normal/abnormal. MPV (test code = 48970-9) 11.8 fL 9.8-13.0 NRBC/100 WBC (test code = 6528024646) 0.0 See_Comment [Automated me ssage] The system which generated this result transmitted reference range: 0.0 - 10.0 /100 WBCs. The reference range was not used to interpret this result as normal/abnormal. NRBC x10^3 (test code = 7095677042) See_Comment [Automated messa ge] The system which generated this result transmitted reference range: 10*3/?L. The reference range was not used to interpret this result as normal/abnormal. GRAN MAT (NEUT) % (test code = 770-8) 80.2 % IMM GRAN % (test code = 1113388164) 0.30 % LYMPH % (test code = 736-9) 8.6 % MONO % (test code = 5905-5) 8.3 % EOS % (test code = 713-8) 1.8 % BASO % (test code = 706-2) 0.8 % GRAN MAT x10^3(ANC) (test code = 9850951562) 6.26 10*3/uL 1.99-6.95 IMM GRAN x10^3 (test code = 6025196860) 0.00-0.06 LYMPH x10^3 (test code = 731-0) 0.67 10*3/uL 1.09-3.23 L MONO x10^3 (test code = 742-7) 0.65 10*3/uL 0.36-1.02 EOS x10^3 (test code = 711-2) 0.14 10*3/uL 0.06-0.53 BASO x10^3 (test code = 704-7) 0.06 10*3/uL 0.01-0.09 Lab Interpretation (test code = 74576-7) Abnormal [facility] with Izyypjkzeaxd3637-27-24 21:08:35* Test Item Value Reference Range Interpretation Comme nts WBC (test code = 6690-2) 7.80 See_Comment [Automated messa ge] The system which generated this result transmitted reference range: 4.20 - 10.70 10*3/?L. The reference range was not used to interpret this result as normal/abnormal. RBC (test code = 789-8) 4.22 See_Comment L [Automated messa ge] The system which generated this result transmitted reference range: 4.26 - 5.52 10*6/?L. The reference range was not used to interpret this result as normal/abnormal. HGB (test code = 718-7) 12.5 g/dL 12.2-16.4 HCT (test code = 4544-3) 39.9 % 38.4-49.3 MCV (test code = 787-2) 94.5 fL 81.7-95.6 MCH (test code = 785-6) 29.6 pg 26.1-32.7 MCHC (test code = 786-4) 31.3 g/dL 31.2-35.0 RDW-SD (test code = 06032-4) 46.7 fL 38.5-51.6 RDW-CV (test code = 788-0) 13.3 % 12.1-15.4 PLT (test code = 777-3) 145 See_Comment L [Automated messa ge] The system which generated this result transmitted reference range: 150 - 328 10*3/?L. The reference range was not used to interpret this result as normal/abnormal. MPV (test code = 81356-6) 11.8 fL 9.8-13.0 NRBC/100 WBC (test code = 6053055389) 0.0 See_Comment [Automated [employer] ssage] The system which generated this result transmitted reference range: 0.0 - 10.0 /100 WBCs. The reference range was not used to interpret this result as normal/abnormal. NRBC x10^3 (test code = 0214094571) See_Comment [Automated messa ge] The system which generated this result transmitted reference range: 10*3/?L. The reference range was not used to interpret this result as normal/abnormal. GRAN MAT (NEUT) % (test code = 770-8) 80.2 % IMM GRAN % (test code = 2834669640) 0.30 % LYMPH % (test code = 736-9) 8.6 % MONO % (test code = 5905-5) 8.3 % EOS % (test code = 713-8) 1.8 % BASO % (test code = 706-2) 0.8 % GRAN MAT x10^3(ANC) (test code = 4544789844) 6.26 10*3/uL 1.99-6.95 IMM GRAN x10^3 (test code = 4813319557) 0.00-0.06 LYMPH x10^3 (test code = 731-0) 0.67 10*3/uL 1.09-3.23 L MONO x10^3 (test code = 742-7) 0.65 10*3/uL 0.36-1.02 EOS x10^3 (test code = 711-2) 0.14 10*3/uL 0.06-0.53 BASO x10^3 (test code = 704-7) 0.06 10*3/uL 0.01-0.09 Lab Interpretation (test code = 67652-6) Abnormal [facility] Metabolic Panel (NA, K, CL, CO2, Glucose, BUN, Creatinine, CA)2022-07-12 20:55:16* Test Item Value Reference Range Interpretation Comme nts NA (test code = 6499031050) 140 mmol/L 135-145 K (test code = 3868207948) 4.6 mmol/L 3.5-5.0 CL (test code = 4424971427) 108 mmol/L 98-108 CO2 TOTAL (test code = 3601618718) 26 mmol/L 23-31 AGAP (test code = 9791837846) 6 2-16 BUN (test code = 8714766585) 28 mg/dL 7-23 H GLUCOSE (test code = 0121579381) 120 mg/dL 70-110 H CREATININE (test code = 2099226238) 1.94 mg/dL 0.60-1.25 H CALCIUM (test code = 0047356713) 10.1 mg/dL 8.6-10.6 eGFR (test code = 2874647841) 34.8 mL/min/1.73m2 MARLENE (test code = MARLENE) Association [...] imaging tests). Lab Interpretation (test code = 90654-8) [facility] Aexug8039-23-25 20:55:16* Test Item Value Reference Range Interpretation Comme nts MAGNESIUM (test code = 6096396759) 2.0 mg/dL 1.7-2.4 Lab Interpretation (test cod e = 59434-0) Normal [facility] Metabolic Panel (NA, K, CL, CO2, Glucose, BUN, Creatinine, CA)2022-07-12 20:55:16* Test Item Value Reference Range Interpretation Comme nts NA (test code = 7186679788) 140 mmol/L 135-145 K (test code = 3563364861) 4.6 mmol/L 3.5-5.0 CL (test code = 5515432960) 108 mmol/L 98-108 CO2 TOTAL (test code = 8341227177) 26 mmol/L 23-31 AGAP (test code = 2661985332) 6 2-16 BUN (test code = 7431315712) 28 mg/dL 7-23 H GLUCOSE (test code = 6540293180) 120 mg/dL 70-110 H CREATININE (test code = 2967225535) 1.94 mg/dL 0.60-1.25 H CALCIUM (test code = 8565186455) 10.1 mg/dL 8.6-10.6 eGFR (test code = 7365896223) 34.8 mL/min/1.73m2 MARLENE (test code = MARLENE) Association [...] imaging tests). Lab Interpretation (test code = 00542-9) [facility]normal [facility] Aslii5983-23-68 20:55:16* Test Item Value Reference Range Interpretation Comme nts MAGNESIUM (test code = 2709513697) 2.0 mg/dL 1.7-2.4 Lab Interpretation (test cod e = 66310-2) [facility] (NA, K, CL, CO2, Glucose, BUN, Creatinine, CA)2022-07-12 20:55:16* Test Item Value Reference Range Interpretation Comme nts NA (test code = 7760143232) 140 mmol/L 135-145 K (test code = 0325188182) 4.6 mmol/L 3.5-5.0 CL (test code = 2333873306) 108 mmol/L 98-108 CO2 TOTAL (test code = 2230140209) 26 mmol/L 23-31 AGAP (test code = 2100899006) 6 2-16 BUN (test code = 4877011765) 28 mg/dL 7-23 H GLUCOSE (test code = 7761040311) 120 mg/dL 70-110 H CREATININE (test code = 9719164419) 1.94 mg/dL 0.60-1.25 H CALCIUM (test code = 8739637545) 10.1 mg/dL 8.6-10.6 eGFR (test code = 9226689650) 34.8 mL/min/1.73m2 MARLENE (test code = MARLENE) Association [...] imaging tests). Lab Interpretation (test code = 65785-2) [facility]normal [facility] Thfak1974-35-59 20:55:16* Test Item Value Reference Range Interpretation Comme nts MAGNESIUM (test code = 0484101208) 2.0 mg/dL 1.7-2.4 Lab Interpretation (test cod e = 77945-0) [facility] (NA, K, CL, CO2, Glucose, BUN, Creatinine, CA)2022-07-12 20:55:16* Test Item Value Reference Range Interpretation Comme nts NA (test code = 3302672825) 140 mmol/L 135-145 K (test code = 9303730039) 4.6 mmol/L 3.5-5.0 CL (test code = 5676121896) 108 mmol/L 98-108 CO2 TOTAL (test code = 6024096482) 26 mmol/L 23-31 AGAP (test code = 0190538406) 6 2-16 BUN (test code = 4322682098) 28 mg/dL 7-23 H GLUCOSE (test code = 5009206300) 120 mg/dL 70-110 H CREATININE (test code = 5972480233) 1.94 mg/dL 0.60-1.25 H CALCIUM (test code = 8596310265) 10.1 mg/dL 8.6-10.6 eGFR (test code = 6270305275) 34.8 mL/min/1.73m2 MARLENE (test code = MARLENE) Association [...] imaging tests). Lab Interpretation (test code = 46874-4) [facility]normal [facility] Rytkm6592-77-82 20:55:16* Test Item Value Reference Range Interpretation Comme nts MAGNESIUM (test code = 5885256784) 2.0 mg/dL 1.7-2.4 Lab Interpretation (test cod e = 83016-9) [facility] (NA, K, CL, CO2, Glucose, BUN, Creatinine, CA)2022-07-12 20:55:16* Test Item Value Reference Range Interpretation Comme nts NA (test code = 2677779435) 140 mmol/L 135-145 K (test code = 5319223604) 4.6 mmol/L 3.5-5.0 CL (test code = 9366569436) 108 mmol/L 98-108 CO2 TOTAL (test code = 6107976653) 26 mmol/L 23-31 AGAP (test code = 9690091545) 6 2-16 BUN (test code = 8859254585) 28 mg/dL 7-23 H GLUCOSE (test code = 6864206276) 120 mg/dL 70-110 H CREATININE (test code = 9720572224) 1.94 mg/dL 0.60-1.25 H CALCIUM (test code = 6134098788) 10.1 mg/dL 8.6-10.6 eGFR (test code = 5227420504) 34.8 mL/min/1.73m2 MARLENE (test code = MARLENE) Association [...] imaging tests). Lab Interpretation (test code = 35471-0) Abnormal [facility] Ndktr8220-27-55 20:55:16* Test Item Value Reference Range Interpretation Comme nts MAGNESIUM (test code = 0458250660) 2.0 mg/dL 1.7-2.4 Lab Interpretation (test cod e = 53622-0) Normal [facility] Ryrmv4314-81-14 20:54:56* Test Item Value Reference Range Interpretation Comme nts PHOSPHORUS (test code = 5650881702) 2.3 mg/dL 2.5-5.0 L Lab Interpretation (test cod e = 09660-6) Abnormal [facility] Vckma0269-27-20 20:54:56* Test Item Value Reference Range Interpretation Comme nts PHOSPHORUS (test code = 3727932917) 2.3 mg/dL 2.5-5.0 L Lab Interpretation (test cod e = 56422-6) Abnormal [facility] Jopug8600-82-75 20:54:56* Test Item Value Reference Range Interpretation Comme nts PHOSPHORUS (test code = 3575885517) 2.3 mg/dL 2.5-5.0 L Lab Interpretation (test cod e = 65556-3) Abnormal [facility] Zpcwc3753-04-87 20:54:56* Test Item Value Reference Range Interpretation Comme nts PHOSPHORUS (test code = 1064012345) 2.3 mg/dL 2.5-5.0 L Lab Interpretation (test cod e = 20555-5) [facility]normal [facility] Xznlm3170-79-93 20:54:56* Test Item Value Reference Range Interpretation Comme nts PHOSPHORUS (test code = 5106464915) 2.3 mg/dL 2.5-5.0 L Lab Interpretation (test cod e = 92785-5) Abnormal [facility] Metabolic Panel (NA, K, CL, CO2, Glucose, BUN, Creatinine, CA)2022-05-30 20:18:40* Test Item Value Reference Range Interpretation Comme nts NA (test code = 5456194231) 141 mmol/L 135-145 K (test code = 7116876690) 4.7 mmol/L 3.5-5.0 CL (test code = 2559613074) 109 mmol/L 98-108 H CO2 TOTAL (test code = 7983501223) 28 mmol/L 23-31 AGAP (test code = 7676970487) 4 2-16 BUN (test code = 8978967631) 18 mg/dL 7-23 GLUCOSE (test code = 6092826810) 91 mg/dL 70-110 CREATININE (test code = 7047135646) 1.50 mg/dL 0.60-1.25 H CALCIUM (test code = 4048837369) 9.9 mg/dL 8.6-10.6 eGFR (test code = 7543992969) 46.8 mL/min/1.73m2 MARLENE (test code = MARLENE) [...] imaging tests). Lab Interpretation (test code = 52017-2) [facility] Tkkhq0675-89-66 20:18:40* Test Item Value Reference Range Interpretation Comme nts MAGNESIUM (test code = 8818458441) 1.9 mg/dL 1.7-2.4 Lab Interpretation (test cod e = 88716-1) Normal [facility] Nygmg6614-58-25 20:18:19* Test Item Value Reference Range Interpretation Comme nts PHOSPHORUS (test code = 8604302573) 2.9 mg/dL 2.5-5.0 Lab Interpretation (test cod e = 61997-2) [facility] with Qyjzlqyiezvu0260-42-71 20:09:39* Test Item Value Reference Range Interpretation Comme nts WBC (test code = 6690-2) 4.58 See_Comment [Automated [employer]] The system which generated this result transmitted reference range: 4.20 - 10.70 10*3/?L. The reference range was not used to interpret this result as normal/abnormal. RBC (test code = 789-8) 4.15 See_Comment L [Automated [employer] ge] The system which generated this result transmitted reference range: 4.26 - 5.52 10*6/?L. The reference range was not used to interpret this result as normal/abnormal. HGB (test code = 718-7) 12.6 g/dL 12.2-16.4 HCT (test code = 4544-3) 39.8 % 38.4-49.3 MCV (test code = 787-2) 95.9 fL 81.7-95.6 H MCH (test code = 785-6) 30.4 pg 26.1-32.7 MCHC (test code = 786-4) 31.7 g/dL 31.2-35.0 RDW-SD (test code = 32693-5) 49.0 fL 38.5-51.6 RDW-CV (test code = 788-0) 13.7 % 12.1-15.4 PLT (test code = 777-3) 133 See_Comment L [Automated [employer]] The system which generated this result transmitted reference range: 150 - 328 10*3/?L. The reference range was not used to interpret this result as normal/abnormal. MPV (test code = 10523-1) 12.2 fL 9.8-13.0 IPF % (test code = 0622087441) 9.8 % 1.2-10.7 Platelet count measured by fluorescence method. NRBC/100 WBC (test code = 8893054716) 0.0 See_Comment [Automated [employer]] The system which generated this result transmitted reference range: 0.0 - 10.0 /100 WBCs. The reference range was not used to interpret this result as normal/abnormal. NRBC x10^3 (test code = 3084609927) See_Comment [Automated [employer]] The system which generated this result transmitted reference range: 10*3/?L. The reference range was not used to interpret this result as normal/abnormal. GRAN MAT (NEUT) % (test code = 770-8) 55.7 % IMM GRAN % (test code = 4964122007) 0.20 % LYMPH % (test code = 736-9) 25.3 % MONO % (test code = 5905-5) 13.8 % EOS % (test code = 713-8) 4.1 % BASO % (test code = 706-2) 0.9 % GRAN MAT x10^3(ANC) (test code = 9974775276) 2.55 10*3/uL 1.99-6.95 IMM GRAN x10^3 (test code = 1348992302) 0.00-0.06 LYMPH x10^3 (test code = 731-0) 1.16 10*3/uL 1.09-3.23 MONO x10^3 (test code = 742-7) 0.63 10*3/uL 0.36-1.02 EOS x10^3 (test code = 711-2) 0.19 10*3/uL 0.06-0.53 BASO x10^3 (test code = 704-7) 0.04 10*3/uL 0.01-0.09 Lab Interpretation (test code = 91635-8) [id number] 00:00:00* Test Item Value Reference Range Interpretation Comme nts DD-cfDNA (External Results) (test code = 5126) See_Comment [Automated [employer]] The system which generated this result transmitted reference range: <=1.0. The reference range was not used to interpret this result as normal/abnormal. [facility] GRP A STREP (MOLECULAR)2022-03-12 22:00:00* Test Item Value Reference Range Interpretation Comme nts POCT GP A STREP (test code = 05399-8) negative Negative - Negative [facility] GRP A STREP (MOLECULAR)2022-03-12 22:00:00* Test Item Value Reference Range Interpretation Comme nts POCT GP A STREP (test code = 68062-5) negative Negative - Negative [facility] HEMOGLOBIN A1C [id number] 17:04:00* Test Item Value Reference Range Interpretation Comme nts POCT HBA1C (test code = 4548-4) 5.6 % 4-6 [facility] HEMOGLOBIN A1C [id number] 17:04:00* Test Item Value Reference Range Interpretation Comme nts POCT HBA1C (test code = 4548-4) 5.6 % 4-6 [facility] BY QUANTITATIVE NAAT 2022 20:04:37* Test Item Value Reference Range Interpretation Comme nts HCV Quantitative Interpretation (test code = 8609708413) Not Detected Not Detected MARLENE (test code = MARLENE) The Aptima HCV Francis nt Dx assay is an FDA-approved real-time head banquet waitress-mediated amplification (TMA) test used for both detection [...] repeat testing if clinically indicated. Lab Interpretation (test code = 40509-4) Normal [facility], [id number] 16:13:27* Test Item Value Reference Range Interpretation Comme nts FK 506 (test code = 2081900844) 5 ng/mL MARLENE (test code = MARLENE) Target/Therapeutic Range KIDNEY ? Early (<3 mo) ? ? [...] ?(>12 mo) ? ?8-10 Method by: ?Chemiflex, Patient Day Coordinator i1000 [facility] with [id number] 22:53:40* Test Item Value Reference Range Interpretation Comme nts WBC (test code = 6690-2) See_Comment [Automated messa ge] The system which generated this result transmitted reference range: 4.20 - 10.70 10*3/?L. The reference range was not used to interpret this result as normal/abnormal. RBC (test code = 789-8) See_Comment L [Automated messa ge] The system which generated this result transmitted reference range: 4.26 - 5.52 10*6/?L. The reference range was not used to interpret this result as normal/abnormal. HGB (test code = 718-7) 13.2 g/dL 12.2-16.4 HCT (test code = 4544-3) 41.3 % 38.4-49.3 MCV (test code = 787-2) 97.2 fL 81.7-95.6 H MCH (test code = 785-6) 31.1 pg 26.1-32.7 MCHC (test code = 786-4) 32.0 g/dL 31.2-35 RDW-SD (test code = 77459-7) 47.1 fL 38.5-51.6 RDW-CV (test code = 788-0) 13.1 % 12.1-15.4 PLT (test code = 777-3) See_Comment L [Automated messa ge] The system which generated this result transmitted reference range: 150 - 328 10*3/?L. The reference range was not used to interpret this result as normal/abnormal. MPV (test code = 89535-6) 12.8 fL 9.8-13 IPF % (test code = 4622324783) 6.8 % 1.2-10.7 Platelet count measured by fluorescence method. NRBC/100 WBC (test code = 1048247585) See_Comment [Automated [employer] ssage] The system which generated this result transmitted reference range: 0.0 - 10.0 /100 WBCs. The reference range was not used to interpret this result as normal/abnormal. NRBC x10^3 (test code = 0487477168) See_Comment [Automated [employer]a ge] The system which generated this result transmitted reference range: 10*3/?L. The reference range was not used to interpret this result as normal/abnormal. GRAN MAT (NEUT) % (test code = 770-8) 72.9 % IMM GRAN % (test code = 5907049926) 0.50 % LYMPH % (test code = 736-9) 14.6 % MONO % (test code = 5905-5) 8.7 % EOS % (test code = 713-8) 2.2 % BASO % (test code = 706-2) 1.1 % GRAN MAT x10^3(ANC) (test code = 7480952145) 4.04 10*3/uL 1.99-6.95 IMM GRAN x10^3 (test code = 2569441485) 0.03 10*3/uL 0-0.06 LYMPH x10^3 (test code = 731-0) 0.81 10*3/uL 1.09-3.23 L MONO x10^3 (test code = 742-7) 0.48 10*3/uL 0.36-1.02 EOS x10^3 (test code = 711-2) 0.12 10*3/uL 0.06-0.53 BASO x10^3 (test code = 704-7) 0.06 10*3/uL 0.01-0.09 Lab Interpretation (test code = 35671-9) Abnormal [facility] [id number] 21:15:06* Test Item Value Reference Range Interpretation Comme nts MAGNESIUM (test code = 1877068363) 1.7 mg/dL 1.7-2.4 Lab Interpretation (test cod e = 13473-1) Normal [facility]. METABOLIC PANEL (31899)2022-01-24 21:15:06* Test Item Value Reference Range Interpretation Comme nts NA (test code = 3347782891) 140 mmol/L 135-145 K (test code = 3944652681) 4.4 mmol/L 3.5-5 CL (test code = 6244907987) 105 mmol/L 98-108 CO2 TOTAL (test code = 1573903017) 29 mmol/L 23-31 AGAP (test code = 5306285967) 2-16 BUN (test code = 8381679419) 17 mg/dL 7-23 GLUCOSE (test code = 0286609366) 119 mg/dL 70-110 H CREATININE (test code = 5167859236) 1.57 mg/dL 0.6-1.25 H TOTAL BILI (test code = 1104468143) 0.6 mg/dL 0.1-1.1 CALCIUM (test code = 5127887899) 10.8 mg/dL 8.6-10.6 H T PROTEIN (test code = 7383483058) 8.4 g/dL 6.3-8.2 H ALBUMIN (test code = 2526807287) 4.4 g/dL 3.5-5 ALK PHOS (test code = 2645170152) 76 U/L 34-122 ALTv (test code = 1742-6) 23 U/L 5-50 AST(SGOT) (test code = 1917578648) 42 U/L 13-40 H eGFR (test code = 7131550965) mL/min/1.73m2 MARLENE (test code = MARLENE) Association [...] imaging tests). Lab Interpretation (test code = 96039-2) Abnormal [facility]osph[facility] [id number] 21:14:45* Test Item Value Reference Range Interpretation Comme nts PHOSPHORUS (test code = 0444227142) 2.8 mg/dL 2.5-5 Lab Interpretation (test cod e = 06513-6) Normal [facility] Consult Notes Date/Time Note Provider Source 2023-07-11 11:32:00 Associated Order(s): CONSULT ADULT OCCUPATIONAL THERAPY OT GENERAL EVALUATION Consult received via [employer], EMR reviewed and evaluation completed 07/11/23. Patient referred to occupational therapy for evaluation and treatment s/p CABG x2. Patient agreeable to participate in occupational therapy. Pt seen in conjunction with Aman Cortes DPT secondary to limited activity tolerance due to precautions. Only billing for OT services. Discharge Recommendations: Therapy Needs and Potential:- Patient would benefit from continued skilled occupational therapy services to address: Decline in basic activities of daily living, Decline in instrumental activities of daily living, Decreased strength, Decreased range of motion, and Decreased endurance - Patient demonstrates good potential to improve and meet therapy goals with further skilled occupational therapy services. - Patient appears motivated to improve their B/IADLs and return to their previous level of function. - Patient demonstrates ability to tolerate at least 30-60 minutes of active participation in occupational therapy. - Patient able to follow commands: 1-step Yes, Multi-step No, Inconsistencies Yes Challenges to Home Transition:- Requires physical assistance for BADLS - Requires physical assistance for IADLS - Requires supervision or verbal cues for BADLS - Requires supervision or verbal cues for IADLS - Limited caregiver availability - Increased risk of falls - Environmental barriers -combo tub/shower Equipment Recommendations: Bedside commode, Shower chair vs Tub transfer bench, Long handled sponge, Long handled sandblast carver, and Sock aide PLAN OF CARE: At least 3x/week Precautions: Weight bearing status: No lifting greater than 10 lbs. General: PPE Utilized: Gloves, Fall, O2 per NC , and Sternal Bracing: N/A Current Occupational Performance and/or Treatment: AM-PAC 6 Clicks (Raw Score 0=Dependent, 24=Independent; Low function Raw Score 0= Dependent, 32=Independent): Raw Score - Daily Activity: 14 T-Scale Score - Daily Activity: 33.39 Feeding: Supervision Grooming: Supervision, washed hands with hand health equipment servicer while sitting in bedside chair. Bathing: NT, educated pt on use of shower chair vs tub transfer bench to prevent falls in the shower. UB Dressing: Minimal Assistance, pt followed cues to lift BRISEIDA arms within sternal restrictions to allow OT to assist pt with donning robe across back. LB Dressing: Total Assistance, pt would benefit from AE to assist with LB dressing. Toilet Transfer: Maximum Assistance, simulated transfer from EOB>bedside chair using david for support and verbal cues throughout for proper body mechanics and safety. Functional Mobility: HOB flat; supine<>sit Max Assistance x2, sit<>stand Max Assistance, ambulation <>bedside chair with [place]. Patient/caregiver educated on: Adaptive equipment and ADL training (see above), Deep breathing, Positioning, Post heart surgery (handout issued/reviewed), Sternal precautions and Role of OT Patient left reclining in bedside chair with call ulrich in reach. Please, see full evaluation below for more detail. OT EVALUATION: 68 year old male Admit date: 07/02/2023 Date of onset: 07/02/2023 Admit Diagnosis: Chest pain in adult [R07.9] Hx of coronary artery bypass graft [Z95.1] OT Diagnosis: Impaired BADL independence, Impaired IADL independence, Weakness, Activity intolerance, Decreased endurance, Impaired self-care mobility, and Limited joint ROM PMH: 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 HTN (hypertension) Lacunar infarction 06/03/2019 Microscopic hematuria 12/14/2017 Nephrolithiasis 12/14/2017 Of transplanted kidney Prediabetes 06/03/2019 Pyelonephritis 12/31/2016 Reactive airway disease, unspecified asthma severity, uncomplicated 11/02/2020 Sepsis due to Escherichia coli 12/31/2016 Severe obstructive sleep apnea Syphilis 09/11/2016 PSH: Past Surgical History: Procedure Laterality Date ARTERIOVENOUS FISTULA CREATION left upper extremity BIOPSY OF KIDNEY,PERCUTANEOUS 03/18/2005, 03/22/2005 CADAVERIC KIDNEY TRANSPLANT RECIPIENT Bilateral 03/08/2005 CHEST EXPLORATION N/A 07/08/2023 Surgeon: Jt Doyle MD; [facility] CHOLECYSTECTOMY 09/28/2014 COLONOSCOPY N/A 10/17/2016 Surgeon: Cheir Mcintyre MD; [facility] COLONOSCOPY N/A 11/07/2020 Surgeon: Jasmyne Parikh MD; Location: [facility] OR Location CORONARY ARTERY BYPASS GRAFT N/A 07/08/2023 Surgeon: Jt Doyle MD; [facility] ENDOSCOPIC VEIN HARVEST (SHX) Left 07/08/2023 Surgeon: Jt Doyle MD; [facility] LIVER BIOPSY 03/27/2004 NEPHRECTOMY 05/18/2004 Bilateral OPEN CHOLECYSTECTOMY N/A 09/28/2014 Surgeon: Ramon Landry MD; [facility] OTHER 04/26/2005 Drainage of fluid PARATHYROIDECTOMY PERCUTANEOUS NEPHROSTOMY TUBE PLACEMENT 04/29/2005 [place] PATIENT HAS A CORONARY ARTERY STENT TRANSURETHRAL PROSTATE VAPORIZATION N/A 02/12/2019 Surgeon: Williams Ashley MD; [facility] VOIDING CYSTOURETHROGRAM 02/08/2004 XR KUB 02/07/2004, 03/08/2005, 03/24/2005 PAIN: Pain Location: sternum Pain rating before treatment: 4, After treatment: does not rate Pain Management: Decreased movement aides in some pain reduction and Repositioning Provided OCCUPATIONAL ROLES/HOME ENVIRONMENT: Home environment: Lives with grandson, 18/11 supervision/assistance is not available, and Single story home. Bathroom access: Yes Bathroom setup: Incentive Occupation(s): Retired Function prior to admission: Household ambulation, Community ambulation, Independent with BADLs, and Independent with IADLs Suspected ischemic or hemorraghic stroke patient: No Equipment prior to admission: Wheelchair PERFORMANCE SKILLS/FACTORS: UE Muscle Tone: bilateral WNL UE ROM: bilateral AROM WFL with shoulder flexion limited ~90 degrees to maintain sternal precautions UE Strength: BRISEIDA grasp 4-/5 Hand dominance: right Dexterity/Coordination: bilateral Gross motor skills Intact Endurance - Sitting: Poor Standing: Poor Sitting Balance - Static: Fair+ Dynamic: Fair Standing: Balance - Static Fair Dynamic: Poor+ Dizziness: No Skin Integrity: surgical incision Sensation: Patient denies numbness and tinging. Oral Motor: WFL Communication: Able to verbalize needs Yes Other: N/A Vision: WFL Yes Other: needs glasses Hearing: good; no issues reported COGNITION: Orientation: person, place, date/time, and situation Follows Commands: 1-step Yes Multi-step No Inconsistencies Yes Safety Awareness/Judgment: Fair and Requires frequent cueing PROBLEM LIST: Decreased independence with ADL, Decreased functional ROM, Decreased strength/endurance for functional activity, and Impaired safety awareness REHAB POTENTIAL/PROGNOSIS: fair PATIENT/FAMILY GOALS: none stated TREATMENT/INTERVENTION PLAN: Patient/Caregiver Education, Equipment recommendations, and Daily living activities GOAL(S): By discharge, patient will increase independence in daily living skills as follows: 1 Patient will perform toilet transfer with independence. 2 Patient will perform UB dressing with independence. 3 Patient will perform LB dressing with independence with AE as needed. 4 Patient will complete grooming tasks with independence while standing at the sink. 5 Patient will complete toileting hygiene, including clothing management, with independence. 6 Patient will increase endurance for functional activity as evidenced by ability to sustain 20 minutes of active participation. 7 Patient/caregiver will verbalize/demonstrate understanding/proficiency in the following home programs: Adaptive equipment , 8 Compensatory techniques/adaptive strategies, 9 Energy conservation, 10 Fall prevention, 11 Post heart surgery, and 12 Sternal Precautions PATIENT-FAMILY TEACHING Patient provided with preferred teaching of verbal information, written information, and demonstration on Adaptive equipment and ADL training (see above), Deep breathing, Positioning, Post heart surgery (handout issued/reviewed), Sternal precautions and Role of OT. Shows readiness to learn. Verbal instruction, Written material, and Demonstration teaching provided. Individual verbalizes understanding of teaching provided. JO Woods, MOT Total Timed Treatment Codes: 12 Min Total Treatment Time: 26 Min Patient Complexity Level High - An occupational therapy evaluation of high complexity was completed using the above tests and measures. The following information was obtained: An occupational profile and medical and therapy history, including review of medical and/or therapy records and extensive additional review of physical, cognitive, or psychosocial history related to current functional performance, Various standardized and non-standardized assessments were used to identify at least 5 or more performance deficits related to physical, cognitive, or psychosocial skills that result in activity limitations and/or participation restrictions, and Clinical decision-making is of high analytic complexity, which includes an analysis of the patient profile, analysis of data from comprehensive assessment(s), and consideration of multiple treatment options. Patient present with comorbidities that affect occupational performance. Significant modification of tasks or assistance (e.g., physical or verbal) with assessment(s) is necessary to enable patient to complete evaluation component. Krystian Sharma OT [facility] 2023-07-11 11:30:00 Associated Order(s): CONSULT ADULT PHYSICAL THERAPY Patient agreeable to working with physical therapy. Patient met supine. Recommend nursing staff utilize david walker to safely assist patient with mobility out of the bed or chair. PHYSICAL THERAPY EVALUATION Consult received, chart reviewed and evaluation complete this date. Patient is referred to PT for evaluation and treatment. Patient is a 68 year old male who presents to hospital for Chest pain in adult [R07.9] Patient is S/P CABG x 2 POD3 . Patient's condition is borderline, complicated by increased post op bleeding. Within the last 24 hours, patient's condition has improved, patient is extubated and pressures have stabilized. PMH of HTN, CAD s/p RCA PCI 2009, CVA 2018, ANG not on CPAP, HCV s/p Epclusa therapy, ESRD 2/2 HTN s/p renal transplant in 2004. Consult received, chart reviewed and evaluation completed this date 07/11/23 in conjunction with Ifeoma Sharma OTR/L for safety given patient's decreased activity tolerance. Billing for PT portion only Discharge Recommendations: Therapy Needs and Potential: Patient would benefit from continued physical therapy services to address: decline in bed mobility decline in transfers decline in gait and/or balance decreased strength decreased endurance Patient demonstrates good potential to improve and meet therapy goals with further physical therapy services. Patient appears motivated to improve their functional mobility and return to their previous level of function. Patient demonstrates ability to tolerate atleast 30-60 minutes of physical therapy with active participation. Patient will benefit from post acute Physical Therapy services in an In-patient Rehab setting for safe return to PLOF. Challenges to Home Transition: increased risk of falls decreased caregiver availability Increased Physical assistance needed with functional mobility Equipment recommendations: rolling walker and or defer to facility Current Functional Status and/or Treatment: AM-PAC 6 Clicks (Raw Score 0=Dependent, 24=Independent; Low function Raw Score 0= Dependent, 32=Independent): Raw Score - Basic Mobility : 11 T-Scale Score - Basic Mobility : 30.25 Bed Mobility: Rolling: Moderate Assistance compensatory strategies to complete rolling without using side rails to maintain sternal precautions patient given verbal cues for proper body mechanics during transition supine to sit provided min assistance to swing both LE in/out of bed provided max assistance x 2 for elevation of the upper body to complete transition to upright position Dizziness No Transfers: sit-stand: Maximum Assistance Static/dynamic standing balance: Poor+ Verbal cueing provided for correct hand placement and correct use of AD hands on pillow and follow sternal precautions Provided education assistance for proper hand placement on pillow and feet placement, proper trunk, and pelvic movement for safety and stability during sit to stand. Dizziness No Ambulation: Assisted patient with ambulation as follows: 5 feet using dvaid walker and Moderate Assistance. Patient presenting with Step-to gait pattern. Patient has short step length and guarded gait pattern Educated patient on proper breathing techniques during ambulation. Educated patient on Gracie exertion scale for progressive ambulation. Patient verbalized understanding of safe techniques for progressive ambulation and safe progression of activities. Dizziness No Therapeutic exercise: patient educated in Deep breathing, Energy conservation, Fall prevention, General strengthening, Positioning, Post heart surgery, Relaxation/breathing techniques, Safety awareness, and Sternal precautions., instructed patient in the following: ankle pumps, heel slides, hip abduction/adduction, long arc quads, seated marching, patient/caregiver instructed to perform HEP 2-3 times per day, 10 repetitions., and patient/caregiver demonstrates understanding of instructions. Patient educated on functional mobility and the importance/benefits of active and safe performance to help prevent BLE DVT's, PNA, overall decrease in mobility, strength, and endurance, skin breakdown Weight shifting in supine and sitting position with correct frequency and duration to help prevent any possible skin breakdown. Functional Outcome Measures: (Values within the past 12 hours) Tinetti Gait Score- # / 12 Initiation of gait: Hesitancy or multiple attempts to start Step length: On both sides, swing foot passes stance foot Foot clearance: Both feet completely clear floor Step Symmetry: Step lengths equal Step continuity: Stopping/dis-continuous steps Path: Mild/moderate deviation or uses AD Trunk: Marked sway or uses AD Walking: Heels apart Tinetti Gait Score: 6 Tinetti Gait Score Interpretation: < 7 - Increased risk for falls After session, patient up in chair. Call button provided. Nurse notified. PLAN OF CARE: While in the hospital, PT will follow patient at least 3 times per week,once or twice a day, per patient's tolerance and needs. See below for complete details. Admit Date: 07/02/2023 Hospital Diagnosis:Chest pain in adult [R07.9] Patient is S/P CABG x 2 POD3 . Patient's condition is borderline, complicated by increased post op bleeding. Within the last 24 hours, patient's condition has improved, patient is extubated and pressures have stabilized. PMH of HTN, CAD s/p RCA PCI 2009, CVA 2018, ANG not on CPAP, HCV s/p Epclusa therapy, ESRD 2/2 HTN s/p renal transplant in 2004 PT Diagnosis: Difficulty walking, Weakness, Malaise/fatigue, Pain, and Abnormality of gait and balance Weight Bearing Precaution: NA General Precautions: PPE used:Gloves, General, Fall, Cardiac, pacemaker,oxygen: Nasal canula, external pacemaker Bracing/Cast present or required:N/A PMH: 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 HTN (hypertension) Lacunar infarction 06/03/2019 Microscopic hematuria 12/14/2017 Nephrolithiasis 12/14/2017 Of transplanted kidney Prediabetes 06/03/2019 Pyelonephritis 12/31/2016 Reactive airway disease, unspecified asthma severity, uncomplicated 11/02/2020 Sepsis due to Escherichia coli 12/31/2016 Severe obstructive sleep apnea Syphilis 09/11/2016 PSH: Past Surgical History: Procedure Laterality Date ARTERIOVENOUS FISTULA CREATION left upper extremity BIOPSY OF KIDNEY,PERCUTANEOUS 03/18/2005, 03/22/2005 CADAVERIC KIDNEY TRANSPLANT RECIPIENT Bilateral 03/08/2005 CHEST EXPLORATION N/A 07/08/2023 Surgeon: Jt Doyle MD; [facility] CHOLECYSTECTOMY 09/28/2014 COLONOSCOPY N/A 10/17/2016 Surgeon: Cheri Mcintyre MD; Location: [facility] Location COLONOSCOPY N/A 11/07/2020 Surgeon: Jasmyne Parikh MD; Location: [facility] Location CORONARY ARTERY BYPASS GRAFT N/A 07/08/2023 Surgeon: Jt Doyle MD; [facility] ENDOSCOPIC VEIN HARVEST (SHX) Left 07/08/2023 Surgeon: Jt Doyle MD; [facility] LIVER BIOPSY 03/27/2004 NEPHRECTOMY 05/18/2004 Bilateral OPEN CHOLECYSTECTOMY N/A 09/28/2014 Surgeon: Ramon Landry MD; [facility]: [facility] OTHER 04/26/2005 Drainage of fluid PARATHYROIDECTOMY PERCUTANEOUS NEPHROSTOMY TUBE PLACEMENT 04/29/2005 [place] PATIENT HAS A CORONARY ARTERY STENT TRANSURETHRAL PROSTATE VAPORIZATION N/A 02/12/2019 Surgeon: Williams Ashley MD; [facility] Location VOIDING CYSTOURETHROGRAM 02/08/2004 XR KUB 02/07/2004, 03/08/2005, 03/24/2005 Prior Living Situation: in a SS house and with his grandson that is a senior in high school, DME: No device Prior level of Mobility: community ambulation, house hold ambulation Suspected ischemic or hemorraghic stroke:No Subjective: "I am ready" Patient/Family Goals: To feel better Patient/Family verbalizes understanding of condition: Yes PAIN: -Pain Description: aching -Pain Location: sternum -Pain rating before treatment: 4, After treatment: 4 -Pain Management: Nursing Notified and Repositioning Provided COMMUNICATION Primary Language: Divehi Able to Verbalize needs: Yes Vision:good; no issues reported Hearing:good; no issues reported ORIENTATION/COGNITION: Oriented to: person, place, date/time, and situation Awake: Yes Alert: Yes Dizzy: No Follows Commands: Yes 1-Step Yes Multi-Step Yes Inconsistent: No NEUROLOGICAL Light Touch: within functional limits bilateral LE, Tone: intact BALANCE: Sitting: Static: Fair+ Dynamic: Fair Standing: Static: Fair Dynamic: Poor+ RANGE OF MOTION: within functional limits bilateral LE STRENGTH: 4/5 (Good), bilateral LE ENDURANCE: Poor, Nasal canula SKIN INTEGRITY: not intact, please see nursing note PROBLEM LIST: Decline in bed mobility, Decline in gait, Decline in transfers, Decreased strength, Decreased endurance, Decreased balance, and Pain ASSESSMENT: Patient is a 68 year old male seen secondary to the above listed diagnosis. Patient presents with LE weakness and decline in functional mobility . Patient requires physical assistance with bed mobility, transfers, balance and ambulation. Patient would benefit from continued PT services to address the above listed deficits to maximize independence and safety with functional mobility. Patient will also benefit from post acute Physical Therapy services in an In-patient Rehab setting to continue therapeutic intervention to improve functional mobility with increased safety and return to PLOF . With patient's motivation and active participation, patient can reasonably make measurable improvement in functional mobility. Rehabilitation Potential: good Goals: The following goals are to maximize independence and safety with functional mobility to eventually return to prior living situation and prior functional status. Upon discharge, patient and/or family will demonstrate the followin. Rolling: Independent Sit to supine: Independent Supine to sit: Independent 2. sit-stand: Independent 3. Independent with ambulation, Feet: 300 using least assistive device. Treatment Plan: Gait training, Therapeutic exercise, Transfer training, Balance training, Bed mobility training, Equipment needs assessment, Safety education, patient/caregiver education, and Neuromuscular Re-Education PATIENT EDUCATION: Patient provided with preferred teaching of verbal information on role of PT, plan of care, HEP. Shows readiness to learn. Verbal instruction teaching provided. Individual needs reinforcement of teaching. Total Time Tx Codes in Minutes: 23 min Total Treatment Time in Minutes: 29 min Brenda Cortes PT, DPT, CSRS [facility] A physical therapy evaluation of high complexity was completed based on meeting at the criteria below: A history of present problem with at least 3 or more personal factors (includes environmental factors) and/or comorbidities that impact the plan of care An examination of body systems using standardized tests and measures addressing a total of at least 4 or more elements from any of the following: body structures and functions, activity limitations, and/or participation limitations A clinical presentation with unstable and unpredictable characteristics Brenda Cortes PT [facility] 2023-07-08 10:54:23 SICU ADMIT NOTE Date of Service: 07/08/2023 10:54 Age: [age] year old HPI Cely Momin is a 68 year old male PMH of HTN, CAD s/p RCA PCI (2009), CVA (2018), ANG, HCV, ESRD s/p renal transplant (2004) who is POD #0 S/P CABG. Pre-op TTE EF 50-55%. LHC on 07/04/23 resulting in severe proximal 70-80% and mid 80-90% LAD stenosis, moderate ostial RCA stenosis 50-60%, Mod 50-60% ostial PDA diseases and severe mid RPL 70-80% stenosis, OM1 ostial 60-70% stenosis, D1 medium size vessel with ostial 60-70% stenosis. Intra-operatively, he received 2000 ml crystalloid and 1000 ml albumin. Pump time 200 min, clamp time 180 min. Received parasternal block with 533 ml bupivacaine and 10 mg decadron. Current ICU Diagnoses: ICD-10-CM 1. Chest pain in adult R07.9 2. Non-STEMI (non-ST elevated myocardial infarction) I21.4 3. Unstable angina I20.0 4. Coronary artery disease involving [place] coronary artery of [place] heart without angina pectoris I25.10 5. S/P CABG (coronary artery bypass graft) Z95.1 Allergies No Known Allergies Medications: Scheduled Medications aspirin, 81 mg, DAILY atorvastatin, 40 mg, QHS tacrolimus, 5 mg, Q12H allopurinoL, 100 mg, DAILY ezetimibe, 10 mg, DAILY fluticasone propionate, 1 Puff, Q12H fluticasone propionate, 2 Dudley, DAILY mirtazapine, 7.5 mg, QHS mycophenolate, 500 mg, Q12H pantoprazole, 40 mg, DAILY predniSONE, 5 mg, DAILY sennosides-docusate sodium, 1 tablet, DAILY sucralfate, 1 g, QID tamsulosin, 0.8 mg, QHS IV Medications/Drips heparin 25,000 Units/250 mL IV infusion for ACS, Last Rate: Stopped (07/08/23 0000) PRN Medications ceFAZolin (ANCEF) 1 g in NaCl 0.9% (NS) 1,000 mL OR irrigation, , PRN heparin 1,000 unit/mL 2,500 Units, papaverine 60 mg in NaCl 0.9% (NS) 100 mL OR irrigation, , PRN heparin 1,000 unit/mL 30,000 Units in NaCl 0.9% (NS) 1,000 mL OR irrigation, , PRN heparin 1,000 unit/mL 5,000 Units, papaverine 60 mg in NaCl 0.9% (NS) 500 mL OR irrigation, , PRN thrombin (recombinant), , PRN hydrALAZINE, 10 mg, Q6HPRN acetaminophen, 650 mg, Q6HPRN docusate, 100 mg, QDAILYPRN heparin 1000 unit/mL, 3,000 Units, FOR REBOLUSING heparin 25,000 Units/250 mL IV infusion for ACS, 0-2,750 Units/hr, TITRATE nitroglycerin, 0.4 mg, Q5MIN PRN triamcinolone acetonide, , BIDPRN Antibiotic(s): cefazolin q8h x 3 doses, Day # 1 of 1 Infusions: Nicardipine gtt at 1.25 mg/hr Drains: Chest tube(s) - 4 Hemodynamic Monitoring MAP: 64, CVP: 10, PA: 20, CO/CI: 8, 3.8 Physical Exam Temp: [35.8 ?C (96.5 ?F)-36.7 ?C (98.1 ?F)] Heart Rate (monitor): [75] Pulse: [67-81] Resp: [18] BP: (147-172)/(77-90) Arterial Line BP: (34-257)/(31-100) MAP (mmHg): [101-117] General: intubated and sedated Lungs: clear to auscultation bilaterally Cardio: normal rate and rhythm, [address] draining thin red blood with minimal clot burden, chest output 300 mL over first hour Abdomen: soft, tender Extremities: no clubbing, cyanosis, or edema Neuro: sedated Pain: sedated, unable to assess Sedation: sedated with propofol to RASS 0 to -1. Airway: intubated Lines: Peripheral IV 07/02/231949 Inferior;Right;Anterior Arm Ultrasound not used (Active) Site assessment Clean;Dry;Intact 07/08/23299 Line status Saline Lock 07/08/23 0300 Line interventions None required 07/08/23299 Dressing status Clean;Dry;Intact 07/08/23 030 Dressing intervention None required 07/08/23 0300 Reason site not rotated Anticipated discharge 07/07/232099 Peripheral IV 07/02/232044 Inferior;Proximal;Right;Ventral Arm Ultrasound not used (Active) Site assessment Clean;Dry;Intact 07/08/23299 Line status Saline Lock 07/08/23 0300 Line interventions None required 07/08/23 030 Dressing status Clean;Dry;Intact 07/08/23 030 Dressing intervention None required 07/08/23 0300 Reason site not rotated Anticipated discharge 07/07/232099 CVC Double Lumen 07/08/23 Right Internal jugular (Active) Arterial Line 07/08/23 (Active) Hemodialysis AV Arteriovenous fistula Left Forearm (Active) Site assessment Clean;Dry;Intact 07/07/232001 Dressing intervention None required 07/07/232001 Dressing status Clean;Dry;Intact 07/07/232001 Distal Extremity Circulation intact 07/07/232001 Introducer 07/08/23 Left Internal jugular (Active) I/O Intake/Output Summary (Last 24 hours) at 07/08/2023 1054 Last data filed at 07/08/2023 0946 Gross per 24 hour Intake 250 ml Output 150 ml Net 100 ml Weight on admission: 88.9 kg Cultures Source: none Nutrition: NPO pending extubation Radiology CXR - pending LABS: BMP NA Date Value 07/08/2023 138 mmol/L 07/18/2014 141 MMOL/L SODIUM-Q (mmol/L) Date Value 06/03/2018 140 K Date Value 07/08/2023 3.8 mmol/L 07/18/2014 4.3 MMOL/L POTASSIUM-Q (mmol/L) Date Value 06/03/2018 4.3 CALCIUM Date Value 07/08/2023 10.2 mg/dL 07/18/2014 10.6 MG/DL 07/18/2014 10.6 MG/DL CALCIUM-Q (mg/dL) Date Value 06/03/2018 9.9 CL Date Value 07/08/2023 110 mmol/L (H) 07/18/2014 106 MMOL/L CHLORIDE-Q (mmol/L) Date Value 06/03/2018 105 BUN Date Value 07/08/2023 15 mg/dL 07/18/2014 25 MG/DL (H) UREA NITROGEN (BUN)-Q (mg/dL) Date Value 06/03/2018 17 CREATININE Date Value 07/08/2023 1.53 mg/dL (H) 07/18/2014 1.70 MG/DL (H) CREATININE-Q (mg/dL) Date Value 06/03/2018 1.66 (H) GLUCOSE Date Value 07/08/2023 99 mg/dL 07/18/2014 94 MG/DL GLUCOSE-Q Date Value 06/03/2018 99 mg/dL 06/03/2018 NEGATIVE CO2 TOTAL Date Value 07/08/2023 23 mmol/L 07/18/2014 27 MMOL/L CARBON DIOXIDE-Q (mmol/L) Date Value 06/03/2018 30 CBC WBC x10 3 (/uL) Date Value 07/18/2014 5.1 WHITE BLOOD CELL COUNT-Q (Thousand/uL) Date Value 06/03/2018 5.4 WBC (10*3/?L) Date Value 07/08/2023 4.94 RBC x10 6 (/uL) Date Value 07/18/2014 4.43 RED BLOOD CELL COUNT-Q (Million/uL) Date Value 06/03/2018 3.97 (L) RBC (10*6/?L) Date Value 07/08/2023 3.81 (L) PLT x10 3 (/uL) Date Value 07/18/2014 190 PLATELET COUNT-Q (Thousand/uL) Date Value 06/03/2018 155 PLT (10*3/?L) Date Value 07/08/2023 142 (L) THB (G/DL) Date Value 05/18/2004 14.6 HGB Date Value 07/08/2023 11.7 g/dL (L) 07/18/2014 13.6 G/DL HEMOGLOBIN-Q (g/dL) Date Value 06/03/2018 12.5 (L) HCT (%) Date Value 07/08/2023 35.6 (L) 07/18/2014 42.3 HEMATOCRIT-Q (%) Date Value 06/03/2018 36.4 (L) PT/INR PROTIME (SEC) Date Value 01/21/2013 12.5 PROTIME PATIENT (Seconds) Date Value 07/02/2023 11.6 PT INR (no units) Date Value 01/21/2013 0.9 INR (no units) Date Value 07/02/2023 1.0 ABG FIO2: 70%, PEEP 5, Vt 500, RR 14 PH ART (no units) Date Value 03/20/2005 7.42 PCO2 ART (MM/HG) Date Value 03/20/2005 44 PO2 ART (MM/HG) Date Value 03/20/2005 56 (L) %O2HB (%) Date Value 05/18/2004 97.7 NA (MEQ/L) Date Value 03/09/2005 131 (L) K+ (MEQ/L) Date Value 03/09/2005 4.2 AC CA IONZ (MG/DL) Date Value 03/09/2005 4.80 Assessment & Plan Cely Momin is a 68 year old Black or male with CAD S/P CABG POD#0. Currently intubated and sedated. Normotensive on arrival to SICU however steadily decreased MAPs to 51. 500 mL albumin and 2 units pRBC given. Airway: - intubated and sedated on propofol infusion - wean FiO2 as able, currently at 50% FiO2 - extubation pending weaning FiO2 and SBT Neurology: - Pain: parasternal block pre-op, fentanyl POLO COACH: 10 mcg bolus, lockout time 7 mins, four hour limit 200 mcg - Sedation: propofol gtt titrated to RASS of 0 to -1 Cardiovascular: - Normotensive on arrival to SICU, MAP steadily decreasing to MAP of 51 mmHg - albumin 500 mL given upon arrival to SICU - MAPS: >70 mmHg - Pressors: none Pulmonary: - O2 per protocol - Ventilation Settings: - FiO2: 50% - RR: 14 and TV: 500 mL - PEEP: 5 Gastrointestinal: - Diet: NPO - Bowel Regimen: docusate/senokot daily - GI PPX: protonix 40 mg daily Renal/Electrolytes: ESRD s/p kidney transplant (2004), now CKD3 (baseline Cr 1.5) - Monitor electrolytes and replace as needed - Dur[place] in place, monitor UOP Endocrinology: - Monitor glucose Infectious Disease: - WBC: none - Recent Cultures: none - ABX: ancef x 3 doses, day 1 of Hematology: - Transfuse Hgb <7 - Labs in AM DVT Prophylaxis: - SCDs and heparin gtt Active Lines: - right arterial line - Left IJ CVC Disposition: - will remain in SICU Mookie Landis MD Urology Resident Associated attestation - Abner Mendez MD - 07/09/2023 8:27 AM CDT I personally examined the patient on July 09 [address] Landis's resident note as written . I actively participated in the decision-making process. Please see the resident's note for additional details. [facility] 2023-07-05 10:23:46 Associated Order(s): CONSULT CARDIOTHORACIC SURGERY Images from the original note were not included. Cardiothoracic Consult Date of Service: 07/05/23 Requesting Physician: Mukesh IDENTIFYING DATA Patient name: Cely Momin : 1955 Primary care physician: Abner Rivera HISTORY OF PRESENT ILLNESS We are asked to render an opinion regarding Cely Momin, 68 year old, male, who presents with Coronary Artery Disease symptomatic with chest pain. This is a 68 year old male with a PMH of HTN, CAD s/p RCA PCI 2009, CVA 2018, ANG not on CPAP, HCV s/p Epclusa therapy, ESRD 2/2 HTN s/p renal transplant in 2004 who presents with L sided pressure like chest pain. Reports associated JONES and fatigue. Chest pain improves with rest and nitro. He has used nitro multiple times prior to admission. In the OSH, K 3.6, CR 1.55, trop 0.077, nt pro bnp 1580, CXR revealed cardiomegaly with prominent hilar vascular congestion. No pleural effusion noted. He received heparin gtt, asa, and nitro paste. Patient underwent LHC that showed multivessel CAD, TTE with preserved EF COMPLICATIONS/SECONDARY DIAGNOSIS Renal/Genitourinary: hx of ESRD s/p kidney transplant . CURRENT MEDICATIONS & ALLERGIES History of Steroid Therapy: yes: Type: chronic immunosuppression Allergies: No Known Allergies Medications prior to Admission: No current facility-administered medications on file prior to encounter. Current Outpatient Medications on File Prior to Encounter Medication Sig Dispense Refill lisinopriL 5 mg tablet Take 2 tablets by mouth in the morning. 90 tablet 3 tacrolimus (PROGRAF) 1 mg capsule Take 5 capsules by mouth every 12 (twelve) hours. Take 5 tablets in the morning and 5 tablets in the evening Diagnosis: Z 94.0 generic permitted 810 capsule 3 labetaloL 100 mg tablet Take 300mg and 100mg together for a total of 400mg BID 60 tablet 5 labetaloL 300 mg tablet Take 300mg and 100mg together for a total of 400mg BID 60 tablet 4 sucralfate 1 gram tablet TAKE 1 TABLET BY MOUTH FOUR TIMES A DAY 360 tablet 3 valGANciclovir 450 mg tablet Take 1 tablet by mouth in the morning. 30 tablet 6 mirtazapine 7.5 mg tablet Take 1 tablet by mouth at bedtime. 90 tablet 3 nitroglycerin 0.[address] 1 TABLET UNDER THE TONGUE EVERY 5 MINUTES NEEDED FOR CHEST PAIN FOR 3 DOSES. IF NO RELIEF, CALL 911. 30 tablet 2 fluticasone propionate 50 mcg/actuation nasal spray Use 2 Sprays in each nostril in the morning. 16 g 3 allopurinoL 100 mg tablet Take 1 tablet by mouth in the morning. 90 tablet 3 ezetimibe 10 mg tablet Take 1 tablet by mouth in the morning. 90 tablet 3 fluticasone propionate 220 mcg/actuation inhaler INHALE 1 PUFF BY MOUTH EVERY 12 (TWELVE) HOURS. RINSE MOUTH AFTER EACH USE. 12 Each 3 omeprazole 40 mg capsule Take 1 capsule by mouth in the morning. 90 capsule 3 dupilumab (DUPIXENT PEN) 300 mg/2 mL PnIj inject 1 Pen under the skin every 2 (two) weeks. 2 Pen 5 triamcinolone acetonide 0.1 % cream Apply to area(s) 2 (two) times daily as needed for Dermatitis/Rash. 80 g 2 minoxidiL 10 mg tablet TAKE 0.5 TABLETS BY MOUTH 2 TIMES DAILY. 60 tablet 11 mycophenolate 250 mg capsule Take 2 capsules by mouth every 12 (twelve) hours. OR PER TRANSPLANT DOCTOR. Z 94.0 Kidney transplant Generic permitted Indications: z94.0 kidney transplant 360 capsule 3 predniSONE 5 mg tablet Take 1 tablet by mouth in the morning. 90 tablet 3 pravastatin 40 mg tablet Take 1 tablet by mouth at bedtime. 90 tablet 3 fluocinonide 0.05 % cream Apply to area(s) 2 (two) times daily. 60 g 3 TAMSULOSIN 0.4 mg 24 hr capsule TAKE 2 CAPSULES BY MOUTH AT BEDTIME 180 capsule 3 docusate (COLACE) 100 mg capsule Take 1 capsule by mouth once daily as needed for Constipation. 90 capsule 1 furosemide 20 mg tablet Take 1 tablet by mouth as needed (swelling). 90 tablet 3 clobetasoL 0.05 % cream Apply to area(s) 2 (two) times daily. Only to itchy areas 30 g 1 aspirin 325 mg tablet Take 1 Tab by mouth daily. 30 6 Hospital Medications: Current Facility-Administered Medications Medication Dose Route Frequency Last Rate Last Admin aspirin chewable tablet 81 mg 81 mg Oral DAILY 81 mg at 07/05/23 0828 atorvastatin (LIPITOR) tablet 40 mg 40 mg Oral QHS 40 mg at 07/04/23 210 isosorbide mononitrate (IMDUR) 24 hr tablet 30 mg 30 mg Oral DAILY 30 mg at 07/05/23 0829 tacrolimus (PROGRAF) capsule 5 mg 5 mg Oral Q12H 5 mg at 07/04/23 3825 acetaminophen (TYLENOL) tablet 650 mg 650 mg Oral Q6HPRN 650 mg at 07/05/23 0333 allopurinoL (ZYLOPRIM) tablet 100 mg 100 mg Oral DAILY 100 mg at 07/05/23 0828 docusate (COLACE) capsule 100 mg 100 mg Oral QDAILYPRN ezetimibe (ZETIA) tablet 10 mg 10 mg Oral DAILY 10 mg at 07/05/23 0828 fluticasone propionate (FLOVENT HFA) 220 mcg/actuation inhaler 1 Puff 1 Puff Inhalation Q12H 1 Puff at 07/05/23 0621 fluticasone propionate 50 mcg/actuation nasal spray 2 Dudley 2 Dudley Nasal DAILY 2 Dudley at 07/05/23 0900 furosemide (LASIX) tablet 20 mg 20 mg Oral BIDPRN heparin (1,000 unit/mL, 10 mL vial) for Rebolusing 3,000 Units Slow IV Push FOR REBOLUSING 3,000 Units at 07/05/23 0323 heparin 25,000 Units/250 mL (Premixed Bag) in 0.45 % NS 0-2,750 Units/hr IV Infusion TITRATE 8.5 mL/hr at 07/05/23 0325 850 Units/hr at 07/05/23 0325 labetaloL (NORMODYNE) tablet 400 mg 400 mg Oral Q12H 400 mg at 07/05/23 0828 lisinopriL (PRINIVIL,ZESTRIL) tablet 10 mg 10 mg Oral DAILY 10 mg at 07/05/23 0841 minoxidiL (LONITEN) tablet 5 mg 5 mg Oral BID 5 mg at 07/05/2328 mirtazapine (REMERON) tablet 7.5 mg 7.5 mg Oral QHS 7.5 mg at 07/04/23 210 mycophenolate (CELLCEPT) capsule 500 mg 500 mg Oral Q12H 500 mg at 07/05/2328 nitroglycerin (NITROSTAT) sublingual tablet 0.4 mg 0.4 mg Sublingual Q5MIN PRN pantoprazole (PROTONIX) EC tablet 40 mg 40 mg Oral DAILY 40 mg at 07/05/23828 predniSONE (DELTASONE) tablet 5 mg 5 mg Oral DAILY 5 mg at 07/05/23827 sennosides-docusate sodium (SENOKOT-S) 8.6-50 mg per tablet 1 tablet 1 tablet Oral DAILY 1 tablet at 07/05/23828 sucralfate (CARAFATE) tablet 1 g 1 g Oral QID 1 g at 03/09/24 0828 tamsulosin (FLOMAX) capsule 0.8 mg 0.8 mg Oral QHS 0.8 mg at 07/04/23 210 triamcinolone acetonide (TRIDERM) 0.1 % cream Topical BIDPRN REVIEW OF SYSTEMS Reviewed previous ROS from history and physical dated 07/04/23 and there are no changes. 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 HTN (hypertension) Lacunar infarction 06/03/2019 Microscopic hematuria 12/14/2017 Nephrolithiasis 12/14/2017 Of transplanted kidney Prediabetes 06/03/2019 Pyelonephritis 12/31/2016 Reactive airway disease, unspecified asthma severity, uncomplicated 11/02/2020 Sepsis due to Escherichia coli 12/31/2016 Severe obstructive sleep apnea Syphilis 09/11/2016 PAST SURGICAL HISTORY Past Surgical History: Procedure Laterality Date ARTERIOVENOUS FISTULA CREATION left upper extremity BIOPSY OF KIDNEY,PERCUTANEOUS 03/18/2005, 03/22/2005 CADAVERIC KIDNEY TRANSPLANT RECIPIENT Bilateral 03/08/2005 CHOLECYSTECTOMY 09/28/2014 COLONOSCOPY N/A 10/17/2016 Surgeon: Cheri Mcintyre MD; Location: [facility] OR [facility] COLONOSCOPY N/A 11/07/2020 Surgeon: Jasmyne Parikh MD; Location: [facility] OR Location LIVER BIOPSY 03/27/2004 NEPHRECTOMY 05/18/2004 Bilateral OPEN CHOLECYSTECTOMY N/A 09/28/2014 Surgeon: Ramon Landry MD; Location: [facility] OR LOCATION OTHER 04/26/2005 Drainage of fluid PARATHYROIDECTOMY PERCUTANEOUS NEPHROSTOMY TUBE PLACEMENT 04/29/2005 [place] PATIENT HAS A CORONARY ARTERY STENT TRANSURETHRAL PROSTATE VAPORIZATION N/A 02/12/2019 Surgeon: Williams Ashley MD; Location: [facility] OR Location VOIDING CYSTOURETHROGRAM 02/08/2004 XR KUB 02/07/2004, 03/08/2005, 03/24/2005 SOCIAL HISTORY Social History Tobacco Use Smoking status: Former Packs/day: .5 Types: Cigarettes Smokeless tobacco: Never Tobacco comments: Denies. Former smoker , 0.5 ppd Quit 6 yrs ago Substance Use Topics Alcohol use: No Comment: social drinker, no etoh after transplant FAMILY HISTORY Family History Problem Relation Age of Onset Hypertension Mother Hypertension Sister Hypertension Brother Coronary Heart Disease Brother [place] at age 45 Cancer Maternal Uncle Prostate Cancer Maternal Uncle Prostate PHYSICAL EXAMINATION Vitals: 07/06/23 0736 BP: (!) 151/78 Pulse: 78 Resp: 18 Temp: 36.3 ?C (97.3 ?F) SpO2: 99% General: Patient is alert and oriented x4 and in no acute distress. Head: Head is normocephalic, atraumatic. Eyes: conjunctivae and sclerae normal Mouth/Throat-moist mucus membranes with clear oropharynx. Neck Jugular veins: negative Respiratory: Respiratory effort: breathing comfortably Auscultations of lungs:clear to auscultation Cardiovascular: Palpitation of heart: Normal/Nondisplaced PMI. No thrills or heaves. Chest - auscultation heart: The heart rate is normal with regular rhythm, and without murmurs, rubs, or gallops. Carotid Arteries (Bruits): normal - no bruits Abdominal Aorta: not examined Pedal Pulses: Palpable bilaterally and normal Extremities (lower): edema - none. Veins - no varicosities bilaterally. GastrointestinalI: Abdomen- palpation: soft, non tender Neurologic: Orientation: awake and alert Mood and Affect: appropriate Muscular: Kyphosis/Scoliosis: negative Muscle strength/gait: upper and lower extremities equal and normal bilaterally MEDICAL DECISION MAKING LABS CBC BMP PT/INR WBC x10 3 (/uL) Date Value 07/18/2014 5.1 WHITE BLOOD CELL COUNT-Q (Thousand/uL) Date Value 06/03/2018 5.4 WBC (10*3/?L) Date Value 07/05/2023 4.79 NA Date Value 07/05/2023 139 mmol/L 07/18/2014 141 MMOL/L SODIUM-Q (mmol/L) Date Value 06/03/2018 140 No results found for: "PT" RBC x10 6 (/uL) Date Value 07/18/2014 4.43 RED BLOOD CELL COUNT-Q (Million/uL) Date Value 06/03/2018 3.97 (L) RBC (10*6/?L) Date Value 07/05/2023 3.62 (L) K Date Value 07/05/2023 3.8 mmol/L 07/18/2014 4.3 MMOL/L POTASSIUM-Q (mmol/L) Date Value 06/03/2018 4.3 PT INR (no units) Date Value 01/21/2013 0.9 INR (no units) Date Value 07/02/2023 1.0 PLT x10 3 (/uL) Date Value 07/18/2014 190 PLATELET COUNT-Q (Thousand/uL) Date Value 06/03/2018 155 PLT (10*3/?L) Date Value 07/05/2023 142 (L) CALCIUM Date Value 07/05/2023 9.4 mg/dL 07/18/2014 10.6 MG/DL 07/18/2014 10.6 MG/DL CALCIUM-Q (mg/dL) Date Value 06/03/2018 9.9 THB (G/DL) Date Value 05/18/2004 14.6 HGB Date Value 07/05/2023 11.1 g/dL (L) 07/18/2014 13.6 G/DL HEMOGLOBIN-Q (g/dL) Date Value 06/03/2018 12.5 (L) CL Date Value 07/05/2023 114 mmol/L (H) 07/18/2014 106 MMOL/L CHLORIDE-Q (mmol/L) Date Value 06/03/2018 105 aPTT HCT (%) Date Value 07/05/2023 33.8 (L) 07/18/2014 42.3 HEMATOCRIT-Q (%) Date Value 06/03/2018 36.4 (L) BUN Date Value 07/05/2023 19 mg/dL 07/18/2014 25 MG/DL (H) UREA NITROGEN (BUN)-Q (mg/dL) Date Value 06/03/2018 17 APTT (SEC) Date Value 01/21/2013 28 APTT Patient (Seconds) Date Value 07/05/2023 44 (H) CREATININE Date Value 07/05/2023 1.50 mg/dL (H) 07/18/2014 1.70 MG/DL (H) CREATININE-Q (mg/dL) Date Value 06/03/2018 1.66 (H) GLUCOSE Date Value 07/05/2023 147 mg/dL (H) 07/18/2014 94 MG/DL GLUCOSE-Q Date Value 06/03/2018 99 mg/dL 06/03/2018 NEGATIVE PHENYTOIN CO2 TOTAL Date Value 07/05/2023 20 mmol/L (L) 07/18/2014 27 MMOL/L CARBON DIOXIDE-Q (mmol/L) Date Value 06/03/2018 30 No results found for: "PHENYTOIN" No results found for: "PHENYFREE" No results found for: "PHENYTLTD" Liver Function Test: ALBUMIN Date Value 07/03/2023 3.0 g/dL (L) 01/17/2014 3.8 G/DL No components found for: "KTPRO" BUN Date Value 07/05/2023 19 mg/dL 07/18/2014 25 MG/DL (H) UREA NITROGEN (BUN)-Q (mg/dL) Date Value 06/03/2018 17 CREATININE Date Value 07/05/2023 1.50 mg/dL (H) 07/18/2014 1.70 MG/DL (H) CREATININE-Q (mg/dL) Date Value 06/03/2018 1.66 (H) ALT(SGPT) (U/L) Date Value 10/27/2018 26 01/17/2014 39 ALTv (U/L) Date Value 07/03/2023 17 AST(SGOT) (U/L) Date Value 07/03/2023 39 01/17/2014 37 No components found for: "ALKP" The labs are acceptable given the patient's condition and do not require intervention or further study. RADIOLOGY CT Scan: not tested Chest X-ray: No new Radiology except chest xray and/or ct scan PULMONARY Pulmonary Function Test: not tested OTHER TESTS EKG: satisfactory Cardiac Cath/Coronary Arteriography Data: abnormal Echocardiograms: abnormal DIAGNOSIS / ASSESSMENT Coronary Artery Disease MANAGEMENT OPTIONS & PLAN - Patient should benefit from CABG, will plan for surgery this admission, likely Friday - appreciate transplant nephrology input regarding management of immunosuppression - plan discussed with patient and he is agreeable I will present to CT Faculty to determine recommendations. Associated attestation - Jt Doyle MD - 07/06/2023 9:25 PM CDT Severe prox LAD disease and significant RCA disease. Should benefit from CABG. Have scheduled for Friday this week. [facility] 2023-07-03 16:39:50 Associated Order(s): CONSULT NEPHROLOGY Consultation requested by: Service: Cardiology Reason for Consultation: Immunosuppression management Date of Consultation: 07/03/2023 Time of Consultation: 4:40 PM History of Present Illness: Cely Momin is a 68 year old male with complaints of chest pain for the past few days. It happens at rest and with exertion. SOB with exertion. Patient has been using NTG with some relief. He has a history of CAD and had a PCI in 2009. UOP good. He has had no recent issues with his transplant. 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 HTN (hypertension) Lacunar infarction 06/03/2019 Microscopic hematuria 12/14/2017 Nephrolithiasis 12/14/2017 Of transplanted kidney Prediabetes 06/03/2019 Pyelonephritis 12/31/2016 Reactive airway disease, unspecified asthma severity, uncomplicated 11/02/2020 Sepsis due to Escherichia coli 12/31/2016 Severe obstructive sleep apnea Syphilis 09/11/2016 Past Surgical History: Procedure Laterality Date ARTERIOVENOUS FISTULA CREATION left upper extremity BIOPSY OF KIDNEY,PERCUTANEOUS 03/18/2005, 03/22/2005 CADAVERIC KIDNEY TRANSPLANT RECIPIENT Bilateral 03/08/2005 CHOLECYSTECTOMY 09/28/2014 COLONOSCOPY N/A 10/17/2016 Surgeon: Cheri Mcintyre MD; Location: [facility] OR [facility] COLONOSCOPY N/A 11/07/2020 Surgeon: Jasmyne Parikh MD; Location: [facility] OR [facility] LIVER BIOPSY 03/27/2004 NEPHRECTOMY 05/18/2004 Bilateral OPEN CHOLECYSTECTOMY N/A 09/28/2014 Surgeon: Ramon Landry MD; Location: [facility] OR LOCATION OTHER 04/26/2005 Drainage of fluid PARATHYROIDECTOMY PERCUTANEOUS NEPHROSTOMY TUBE PLACEMENT 04/29/2005 [place] PATIENT HAS A CORONARY ARTERY STENT TRANSURETHRAL PROSTATE VAPORIZATION N/A 02/12/2019 Surgeon: Williams Ashley MD; Location: [facility] OR Location VOIDING CYSTOURETHROGRAM 02/08/2004 XR KUB 02/07/2004, 03/08/2005, 03/24/2005 No family history on file Patient has no known allergies. Current Facility-Administered Medications: aspirin chewable tablet 81 mg, 81 mg, Oral, DAILY, Salim, Hamza, DO, 81 mg at 07/03/23 1223 atorvastatin (LIPITOR) tablet 40 mg, 40 mg, Oral, QHS, Analy Duke MD isosorbide mononitrate (IMDUR) 24 hr tablet 30 mg, 30 mg, Oral, DAILY, Salim, Hamza, DO, 30 mg at 07/03/23 1223 [START ON 07/04/2023] NaCl 0.9% (NS) IV infusion 500 mL, 500 mL, IV Infusion, ONCE, Salim, Hamza, DO tacrolimus (PROGRAF) capsule 5 mg, 5 mg, Oral, Q12H, [place]o Baker, acetaminophen (TYLENOL) tablet 650 mg, 650 mg, Oral, [id number] FUENTES Michael, MD acetaminophen-codeine (TYLENOL #3) 300-30 mg tablet 1 tablet, 1 tablet, Oral, [id number], Padmaja Palomares MD allopurinoL (ZYLOPRIM) tablet 100 mg, 100 mg, Oral, DAILY, Padmaja Palomares MD, 100 mg at 07/03/23 0922 docusate (COLACE) capsule 100 mg, 100 mg, Oral, QDAILYPRN, Padmaja Palomares MD ezetimibe (ZETIA) tablet 10 mg, 10 mg, Oral, DAILY, Padmaja Palomares MD, 10 mg at 07/03/23 0922 fluticasone propionate (FLOVENT HFA) 220 mcg/actuation inhaler 1 Puff, 1 Puff, Inhalation, Q12H, Padmaja Palomares MD fluticasone propionate 50 mcg/actuation nasal spray 2 Dudley, 2 Dudley, Nasal, DAILY, Padmaja Palomares MD, 2 Dudley at 07/03/23 1352 furosemide (LASIX) tablet 20 mg, 20 mg, Oral, BIDPRN, Padmaja Palomares MD heparin (1,000 unit/mL, 10 mL vial) for Rebolusing, 3,000 Units, Slow IV Push, FOR REBOLUSING, Nicole Rocha MD heparin 25,000 Units/250 mL (Premixed Bag) in 0.45 % NS, 0-2,750 Units/hr, IV Infusion, TITRATE, Nicole Rocha MD, Last Rate: 8.5 mL/hr at 07/03/23 1219, 850 Units/hr at 07/03/23 1219 labetaloL (NORMODYNE) tablet 400 mg, 400 mg, Oral, Q12H, Padmaja Palomares MD, 400 mg at 07/03/23 0923 lisinopriL (PRINIVIL,ZESTRIL) tablet 10 mg, 10 mg, Oral, DAILY, Padmaja Palomares MD, 10 mg at 07/03/23922 minoxidiL (LONITEN) tablet 5 mg, 5 mg, Oral, BID, Padmaja Palomares MD, 5 mg at 07/03/23922 mirtazapine (REMERON) tablet 7.5 mg, 7.5 mg, Oral, QHS, Padmaja Palomares MD mycophenolate (CELLCEPT) capsule 500 mg, 500 mg, Oral, Q12H, Padmaja Palomares MD, 500 mg at 07/03/23 0923 nitroglycerin (NITROSTAT) sublingual tablet 0.4 mg, 0.4 mg, Sublingual, Q5MIN PRN, Padmaja Palomares MD pantoprazole (PROTONIX) EC tablet 40 mg, 40 mg, Oral, DAILY, Padmaja Palomares MD, 40 mg at 07/03/23922 predniSONE (DELTASONE) tablet 5 mg, 5 mg, Oral, DAILY, Padmaja Palomares MD, 5 mg at 07/03/23 09 sennosides-docusate sodium (SENOKOT-S) 8.6-50 mg per tablet 1 tablet, 1 tablet, Oral, DAILY, Padmaja Palomares MD, 1 tablet at 07/03/23922 sucralfate (CARAFATE) tablet 1 g, 1 g, Oral, QID, Padmaja Palomares MD, 1 g at 07/03/23 1223 tamsulosin (FLOMAX) capsule 0.8 mg, 0.8 mg, Oral, QHS, Padmaja Palomares MD triamcinolone acetonide (TRIDERM) 0.1 % cream, , Topical, BIDPRN, Padmaja Palomares MD Hospital Medications: REVIEW OF SYSTEMS General: negative Skin: negative HEENT: negative Neck: negative Heme: negative Resp: negative Cardio: (+) chest pain GI: negative : negative Endo: negative Neuro: negative Back: negative ANDREEA: negative Psych: negative PHYSICAL EXAMINATION BP (!) 143/73 (BP Location: Right arm, Patient Position: Sitting) | Pulse 69 | Temp 36.6 ?C (97.8 ?F) (Tympanic) | Resp 18 | Ht 1.753 m (5' 9") | Wt 90.7 kg (200 lb) | SpO2 98% | BMI 29.53 kg/m? General: alert and oriented x 3 (person, place, and date/time); no apparent distress HEENT: normocephalic atraumatic Neck: supple, no lymphadenopathy, no bruits, no JVD Lungs: clear to auscultation bilaterally Cardio: S1, S2 normal; no murmurs, rubs or gallops Abdomen: soft; non-tender; non-distended; normoactive bowel sounds Extremities: no clubbing, cyanosis, or edema Skin: no rashes Neuro: no focal deficits LABORATORY CBC WBC x10 3 (/uL) Date Value 07/18/2014 5.1 WHITE BLOOD CELL COUNT-Q (Thousand/uL) Date Value 06/03/2018 5.4 WBC (10*3/?L) Date Value 07/03/2023 4.48 RBC x10 6 (/uL) Date Value 07/18/2014 4.43 RED BLOOD CELL COUNT-Q (Million/uL) Date Value 06/03/2018 3.97 (L) RBC (10*6/?L) Date Value 07/03/2023 3.41 (L) PLT x10 3 (/uL) Date Value 07/18/2014 190 PLATELET COUNT-Q (Thousand/uL) Date Value 06/03/2018 155 PLT (10*3/?L) Date Value 07/03/2023 125 (L) THB (G/DL) Date Value 05/18/2004 14.6 HGB Date Value 07/03/2023 10.6 g/dL (L) 07/18/2014 13.6 G/DL HEMOGLOBIN-Q (g/dL) Date Value 06/03/2018 12.5 (L) HCT (%) Date Value 07/03/2023 31.3 (L) 07/18/2014 42.3 HEMATOCRIT-Q (%) Date Value 06/03/2018 36.4 (L) BMP NA Date Value 07/03/2023 141 mmol/L 07/18/2014 141 MMOL/L SODIUM-Q (mmol/L) Date Value 06/03/2018 140 K Date Value 07/03/2023 3.6 mmol/L 07/18/2014 4.3 MMOL/L POTASSIUM-Q (mmol/L) Date Value 06/03/2018 4.3 CALCIUM Date Value 07/03/2023 8.5 mg/dL (L) 07/18/2014 10.6 MG/DL 07/18/2014 10.6 MG/DL CALCIUM-Q (mg/dL) Date Value 06/03/2018 9.9 CL Date Value 07/03/2023 119 mmol/L (H) 07/18/2014 106 MMOL/L CHLORIDE-Q (mmol/L) Date Value 06/03/2018 105 BUN Date Value 07/03/2023 20 mg/dL 07/18/2014 25 MG/DL (H) UREA NITROGEN (BUN)-Q (mg/dL) Date Value 06/03/2018 17 CREATININE Date Value 07/03/2023 1.20 mg/dL 07/18/2014 1.70 MG/DL (H) CREATININE-Q (mg/dL) Date Value 06/03/2018 1.66 (H) GLUCOSE Date Value 07/03/2023 81 mg/dL 07/18/2014 94 MG/DL GLUCOSE-Q Date Value 06/03/2018 99 mg/dL 06/03/2018 NEGATIVE CO2 TOTAL Date Value 07/03/2023 19 mmol/L (L) 07/18/2014 27 MMOL/L CARBON DIOXIDE-Q (mmol/L) Date Value 06/03/2018 30 @PTHCAINTACT@ There are no current results on file for these tests and/or test for 1 year. PROTEIN (no units) Date Value 05/23/2023 500 mg/dL (A) 07/18/2014 TRACE (A) PH (no units) Date Value 05/23/2023 6.0 07/18/2014 6.0 GLU U QUAL (no units) Date Value 05/23/2023 Normal 07/18/2014 NEGATIVE KETONES (no units) Date Value 05/23/2023 Negative 07/18/2014 NEGATIVE BILIRUBIN (no units) Date Value 05/23/2023 Negative 07/18/2014 NEGATIVE BLOOD (no units) Date Value 07/18/2014 TRACE (A) UROBILIN (mg/dL) Date Value 07/18/2014 0.2 LEUK MATT (no units) Date Value 05/23/2023 Negative 07/18/2014 NEGATIVE NITRITE (no units) Date Value 05/23/2023 Negative 07/18/2014 NEGATIVE SP GRAVITY (no units) Date Value 05/23/2023 1.015 07/18/2014 1.020 Latest Reference Range & Units 07/02/23 19:55 07/03/23 00:42 TROPONIN I <=0.034 ng/mL 0.077 (H) 0.052 (H) (H): Data is abnormally high RADIOLOGY: PROCEDURE: XR CHEST 1 VW CLINICAL INDICATION: chest pain COMPARISON: Chest radiograph dated 04/13/2020 FINDINGS: No focal consolidation is identified. Hilar vascular congestion noted. No pleural effusion or pneumothorax is seen. The cardiomediastinal silhouette is enlarged. No acute bony abnormality. IMPRESSION Cardiomegaly with chronic hilar vascular congestion. No new finding. EKG: Normal sinus rhythm Right bundle branch block Abnormal ECG When compared with ECG of 15-OCT-2022 14:12, Questionable change in QRS duration Minimal criteria for Anterior infarct are no longer Present ASSESSMENT and PLAN Cely Momin is a 68 year old male, consulted Nephrology for maintenance immunosuppression after a kidney transplant. 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 Immunosuppression - continue with prednisone 5 mg daily, cellcept 500 mg bid and tacrolimus 5 mg bid Chest pain r/o ACS, patient with known CAD - management as per Cardiology. Currently on heparin drip. Plan for cath tomorrow. To minimize risk for FÁTIMA, advised to start IVF 6 hours pre and 6 hours post cath (1 ml/kg/hour). Naomie Doty MD, FASN CTOR OF SOLUTIONS ARCHITECTURE [facility] History and Physical Notes Date/Time Note Provider Source 2023-07-04 16:00:55 Cardiac Cath Pre-Procedure Sedation Evaluation See H&P for medical history and current medications. Allergies were reviewed. Indication: Pt 68M Pmhx of ESRD s/p renal transplant who presented with chest pain and NSTEMI, plan for LHC. NPO Status Solids: >6 hours Clear liquids: >2 hours History History of anesthesia/sedation complications: No History of difficult airway: No History of neck problems, craniofacial abnormalities, head/neck surgery: No Increased risk for airway obstruction, sleep apnea, morbid obesity: No Focused Physical Exam Heart: documented in H&P Normal Lung: documented in H&P Normal Airway Mallampati: II (full visibility of soft palate and part of uvula) Mouth opening: Normal Range of motion neck: Normal Dentition: Normal Assessment: ASA 3 Plan: Moderate sedation The risks, benefits, and treatment options of sedation were discussed with the patient/guardian and they desire to proceed. The consent form was completed and signed. Case discussed with Dr. Mukesh Cartagena Pager #[phone] Associated attestation - Venita Mayorga MD - 07/07/2023 3:51 PM CDT Agree IM-CARDIOVASCULAR DISEASE [facility] 2023-07-02 21:15:30 MCAWHITE Team Admit H&P Date of Service: 07/02/2023 21:37 Date of Service: 07/02/2023 CHIEF COMPLAINT: Chest Pain HISTORY OF PRESENT ILLNESS Cely oMmin is a 68 year old male with a PMH of HTN, CAD s/p RCA PCI 2009, CVA 2018, ANG not on CPAP, HCV s/p Epclusa therapy, ESRD 2/2 HTN s/p renal transplant in 2004 who presents with L sided pressure like chest pain. Reports associated JONES and fatigue. Chest pain improves with rest and nitro. He has used nitro multiple times prior to admission. In the OSH, K 3.6, CR 1.55, trop 0.077, nt pro bnp 1580, CXR revealed cardiomegaly with prominent hilar vascular congestion. No pleural effusion noted. He received heparin gtt, asa, and nitro paste. On arrival, patient reports chest pain has improved since starting heparin gtt and nitro. Reports JONES on exertion, but able to walk to restroom without difficulties. 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 Authorizing Provider lisinopriL 5 mg tablet Take 2 tablets by mouth in the morning. 05/26/23 Parminder Rueda MD tacrolimus (PROGRAF) 1 mg capsule Take 5 capsules by mouth every 12 (twelve) hours. Take 5 tablets in the morning and 5 tablets in the evening Diagnosis: Z 94.0 generic permitted 05/26/23 Parminder Rueda MD labetaloL 100 mg tablet Take 300mg and 100mg together for a total of 400mg BID 04/27/23 Abner Rivera MD labetaloL 300 mg tablet Take 300mg and 100mg together for a total of 400mg BID 04/27/23 Abner Rivera MD sucralfate 1 gram tablet TAKE 1 TABLET BY MOUTH FOUR TIMES A DAY 03/17/23 Nicolle Suresh FNP valGANciclovir 450 mg tablet Take 1 tablet by mouth in the morning. 03/17/23 Naomie Doty MD mirtazapine 7.5 mg tablet Take 1 tablet by mouth at bedtime. 02/19/23 Junior Garcia NP nitroglycerin 0.[address] 1 TABLET UNDER THE TONGUE EVERY 5 MINUTES NEEDED FOR CHEST PAIN FOR 3 DOSES. IF NO RELIEF, CALL 911. 02/19/23 Junior Garcia NP fluticasone propionate 50 mcg/actuation nasal spray Use 2 Sprays in each nostril in the morning. 01/19/23 Nicolle Suresh FNP allopurinoL 100 mg tablet Take 1 tablet by mouth in the morning. 01/13/23 Junior Garcia NP ezetimibe 10 mg tablet Take 1 tablet by mouth in the morning. 01/13/23 Junior Garcia NP fluticasone propionate 220 mcg/actuation inhaler INHALE 1 PUFF BY MOUTH EVERY 12 (TWELVE) HOURS. RINSE MOUTH AFTER EACH USE. 01/13/23 Junior Garcia NP omeprazole 40 mg capsule Take 1 capsule by mouth in the morning. 01/13/23 Junior Garcia NP dupilumab (DUPIXENT PEN) 300 mg/2 mL PnIj inject 1 Pen under the skin every 2 (two) weeks. 12/23/22 Kurtis Kirk PA-C triamcinolone acetonide 0.1 % cream Apply to area(s) 2 (two) times daily as needed for Dermatitis/Rash. 12/23/22 Kurtis Kirk PA-C minoxidiL 10 mg tablet TAKE 0.5 TABLETS BY MOUTH 2 TIMES DAILY. 09/20/22 Behzad Jolly MD mycophenolate 250 mg capsule Take 2 capsules by mouth every 12 (twelve) hours. OR PER TRANSPLANT DOCTOR. Z 94.0 Kidney transplant Generic permitted Indications: z94.0 kidney transplant 08/26/22 Behzad Jolly MD predniSONE 5 mg tablet Take 1 tablet by mouth in the morning. 08/26/22 Behzad Jolly MD pravastatin 40 mg tablet Take 1 tablet by mouth at bedtime. 07/30/22 Junior Garcia NP fluocinonide 0.05 % cream Apply to area(s) 2 (two) times daily. 07/23/22 Kurtis Kirk PA-C TAMSULOSIN 0.4 mg 24 hr capsule TAKE 2 CAPSULES BY MOUTH AT BEDTIME 07/22/22 Abner Rivera MD docusate (COLACE) 100 mg capsule Take 1 capsule by mouth once daily as needed for Constipation. 05/07/22 Junior Garcia NP furosemide 20 mg tablet Take 1 tablet by mouth as needed (swelling). 05/07/22 Junior Garcia NP clobetasoL 0.05 % cream Apply to area(s) 2 (two) times daily. Only to itchy areas 03/06/22 Kurtis Kirk PA-C aspirin 325 mg tablet Take 1 Tab by mouth daily. 12/19/09 Scarlet Crooks MD No Known Allergies Past surgical history: Past Surgical History: Procedure Laterality Date ARTERIOVENOUS FISTULA CREATION left upper extremity BIOPSY OF KIDNEY,PERCUTANEOUS 03/18/2005, 03/22/2005 CADAVERIC KIDNEY TRANSPLANT RECIPIENT Bilateral 03/08/2005 CHOLECYSTECTOMY 09/28/2014 COLONOSCOPY N/A 10/17/2016 Surgeon: Cheri Mcintyre MD; Location: [facility] OR Location COLONOSCOPY N/A 11/07/2020 Surgeon: Jasmyne Parikh MD; Location: [facility] OR Location LIVER BIOPSY 03/27/2004 NEPHRECTOMY 05/18/2004 Bilateral OPEN CHOLECYSTECTOMY N/A 09/28/2014 Surgeon: Ramon Landry MD; Location: [facility] LOCATION OTHER 04/26/2005 Drainage of fluid PARATHYROIDECTOMY PERCUTANEOUS NEPHROSTOMY TUBE PLACEMENT 04/29/2005 [place] PATIENT HAS A CORONARY ARTERY STENT TRANSURETHRAL PROSTATE VAPORIZATION N/A 02/12/2019 Surgeon: Williams Ashley MD; Location: [facility] OR Location VOIDING CYSTOURETHROGRAM 02/08/2004 XR KUB 02/07/2004, 03/08/2005, 03/24/2005 Allergies: No Known Allergies Social history: Social History Socioeconomic History Marital status: Spouse name: Not on file Number of children: 2 Years of education: 12 Highest education level: Bachelor's degree (e.g., BA, AB, BS) Occupational History Occupation: retired Tobacco Use Smoking status: Former Packs/day: .5 Types: Cigarettes Smokeless tobacco: Never Tobacco comments: Denies. Former smoker , 0.5 ppd Quit 6 yrs ago Substance and Sexual Activity Alcohol use: No Comment: social drinker, no etoh after transplant Drug use: Not on file Sexual activity: Not on file Other Topics Concern Not on file Social History Narrative Lives home alone Social Determinants of Health Financial Resource Strain: Low Risk (02/12/2019) Overall Financial Resource Strain (CARDIA) Difficulty of Paying Living Expenses: Not hard at all Food Insecurity: Unknown (02/12/2019) Hunger Vital Sign Worried About Running Out of Food in the Last Year: Patient declined Ran Out of Food in the Last Year: Patient declined Transportation Needs: Unknown (02/12/2019) PRAPARE - Transportation Lack of Transportation (Medical): Patient declined Lack of Transportation (Non-Medical): Patient declined Physical Activity: Not on file Stress: Not on file Social Connections: Not on file Intimate Partner Violence: Not on file Housing Stability: Not on file Family history: Family History Problem Relation Age of Onset Hypertension Mother Hypertension Sister Hypertension Brother Coronary Heart Disease Brother [place] at age 45 Cancer Maternal Uncle Prostate Cancer Maternal Uncle Prostate REVIEW OF SYSTEMS Per HPI PHYSICAL EXAMINATION Temp: [36.9 ?C (98.5 ?F)] Heart Rate (monitor): [78-80] Pulse: [76-77] Resp: [14-21] BP: (157-176)/(84-98) MAP (mmHg): [100-122] Body mass index is 29.53 kg/m?. General: AO& x3; NAD Eyes: PERRLA ENT: normal external inspection, mucous membranes moist Neck: supple, trachea midline Lungs: CTAB with no wheezes, rales, or rhonchi Cardio: RRR with no rubs, murmurs, or gallops Abdomen: soft, non-tender, non distended Extremities: no lower extremity edema; no sacral edema; no rashes Skin: intact, warm, dry LABS: CBC WBC x10 3 (/uL) Date Value 07/18/2014 5.1 WHITE BLOOD CELL COUNT-Q (Thousand/uL) Date Value 06/03/2018 5.4 WBC (10*3/?L) Date Value 07/02/2023 4.90 RBC x10 6 (/uL) Date Value 07/18/2014 4.43 RED BLOOD CELL COUNT-Q (Million/uL) Date Value 06/03/2018 3.97 (L) RBC (10*6/?L) Date Value 07/02/2023 4.25 (L) PLT x10 3 (/uL) Date Value 07/18/2014 190 PLATELET COUNT-Q (Thousand/uL) Date Value 06/03/2018 155 PLT (10*3/?L) Date Value 07/02/2023 163 THB (G/DL) Date Value 05/18/2004 14.6 HGB Date Value 07/02/2023 13.2 g/dL 07/18/2014 13.6 G/DL HEMOGLOBIN-Q (g/dL) Date Value 06/03/2018 12.5 (L) HCT (%) Date Value 07/02/2023 39.9 07/18/2014 42.3 HEMATOCRIT-Q (%) Date Value 06/03/2018 36.4 (L) There are no current results on file for these tests and/or test for 1 year. There are no current results on file for these tests and/or test for 1 year. BMP NA Date Value 07/02/2023 141 mmol/L 07/18/2014 141 MMOL/L SODIUM-Q (mmol/L) Date Value 06/03/2018 140 K Date Value 07/02/2023 3.6 mmol/L 07/18/2014 4.3 MMOL/L POTASSIUM-Q (mmol/L) Date Value 06/03/2018 4.3 CALCIUM Date Value 07/02/2023 10.3 mg/dL 07/18/2014 10.6 MG/DL 07/18/2014 10.6 MG/DL CALCIUM-Q (mg/dL) Date Value 06/03/2018 9.9 CL Date Value 07/02/2023 111 mmol/L (H) 07/18/2014 106 MMOL/L CHLORIDE-Q (mmol/L) Date Value 06/03/2018 105 BUN Date Value 07/02/2023 20 mg/dL 07/18/2014 25 MG/DL (H) UREA NITROGEN (BUN)-Q (mg/dL) Date Value 06/03/2018 17 CREATININE Date Value 07/02/2023 1.55 mg/dL (H) 07/18/2014 1.70 MG/DL (H) CREATININE-Q (mg/dL) Date Value 06/03/2018 1.66 (H) GLUCOSE Date Value 07/02/2023 118 mg/dL (H) 07/18/2014 94 MG/DL GLUCOSE-Q Date Value 06/03/2018 99 mg/dL 06/03/2018 NEGATIVE CO2 TOTAL Date Value 07/02/2023 26 mmol/L 07/18/2014 27 MMOL/L CARBON DIOXIDE-Q (mmol/L) Date Value 06/03/2018 30 Hepatic Function Panel ALBUMIN Date Value 07/02/2023 4.0 g/dL 01/17/2014 3.8 G/DL T PROTEIN Date Value 07/02/2023 8.2 g/dL 01/17/2014 7.9 G/DL TOTAL BILI Date Value 07/02/2023 0.6 mg/dL 01/17/2014 0.6 MG/DL BILI UNCON Date Value 11/02/2020 0.3 mg/dL 01/17/2014 0.3 MG/DL BILI CONJ Date Value 11/02/2020 0.0 mg/dL 01/17/2014 0.0 MG/DL ALT(SGPT) (U/L) Date Value 10/27/2018 26 01/17/2014 39 ALTv (U/L) Date Value 07/02/2023 22 AST(SGOT) (U/L) Date Value 07/02/2023 46 (H) 01/17/2014 37 ALK PHOS (U/L) Date Value 07/02/2023 81 01/17/2014 95 Coagulation Panel: Recent Labs 07/02/23 2049 PTINR 1.0 PTPAT 11.6 APTTPAT 33 ABG:There are no current results on file for these tests and/or test for 1 year. DM & HLD Panel:There are no current results on file for these tests and/or test for 1 year. EKG/ECHO: NSR RBBB HR [address] changes Additional Imaging: No final results containing an impression from the past 48 hours were found. CHART REVIEW Last Office Visit: Nephrology note reviewed ASSESSMENT/PLAN: Cely Momin is a 68 year old male admitted to the hospital with: NSTEMI Typical Chest pain ACS rule out CAD s/p PCI 2009 Patient with typical chest pain and elevated troponin with nonspecific ST changes on EKG. Euvolemic on exam, however hilar congestion found on CXR. One time lasix dose. Admitted for ACS rule out. Monitoring overnight. - Admit to Cardiology White Team - EKG stat now and then EKG qAM - Labs: CBC, BMP, Mag, PTT, TSH, Hgb A1c, Lipid panel - Cardiac diet, Telemetry, O2 per protocol - Electrolytes: Keep K >4, Mg>2 - Transthoracic Echo - Trend cardiac enzymes x 3 - c/w home Aspirin daily - c/w home statin - CLD for possible cath - lasix one time ESRD s/p renal transplant HTN Patient makes urine. Consult renal transplant in the AM for immunosuppressive management (mycophenlate, prednisone, tacrolimus and valgancicylovir) and medication approval (valganciclovir and tacrolimus) -review home med -resume labetalol 400 mg bid, minoxidil 5mg bid, lisinopril 10 mg daily Pain: nitro as needed Bowel Regimen: colace DVT Prophylaxis: heparin Code status: full Padmaja Palomares MD Department of Internal Medicine 07/02/2023 21:37 CTOR OF SOLUTIONS ARCHITECTURE Associated attestation - Venita Mayorga MD - 07/04/2023 9:20 PM DIRECTOR OF SOLUTIONS ARCHITECTURE I personally examined the patient on the date of service as stated and agree with Dr. Palomares's resident note . I actively participated in the decision-making process. Please see the resident's note for additional details. [facility] Procedure Notes Date/Time Note Provider Source 2023-07-08 08:59:57 Procedure(s): AN CHARLINE Pre-Procedure Diagnose(s): Coronary artery disease involving [place] coronary artery of [place] heart, unspecified whether angina present Post-Procedure Diagnose(s): Coronary artery disease involving [place] coronary artery of [place] heart, unspecified whether angina present Intraoperative Transesophageal Echocardiography Exam 07/08/2023 9:00 AM After the induction of anesthesia, CHARLINE probe inserted and removed atraumatically. Preop CHARLINE Aortic valve: tricuspid valve, normal leaflet motion - Annulus diameter: 2.19 cm - LVOT: 2.03 cm - ST junction diameter: 2.67 cm Mitral valve: moderate calcification of posterior leaflet, normal leaflet motion, trace MR - Annulus diameter: 2.66 x 3.64 cm Tricuspid valve: normal leaflet motion, trace TR - Annulus diameter: 3.95 cm - Hepatic venous velocities: no systolic flow reversal Pulmonic valve: normal leaflet motion, mild PI LV: Concentric hypertrophy present: LVMi 687.12 g/m 2 , RWT 0.57; normal systolic function with visually estimated EF 68%, FAC 75%, inferior wall hypokinesis - LV end diastolic diameter: 3.59 cm - LV end systolic diameter: 2.03 cm - LV end diastolic wall thickness: 2.41 cm - Systolic function: EF 68% - Diastolic function: Pseudonormal, Grade 2. - Peak transmitral E wave velocity: 0.652 m/s - Peak transmitral A wave velocity: 0.659 m/s - E/A ratio: 1.0 - E wave deceleration time: 116 ms - A dur: 129 ms - Peak lateral mitral annular E' velocity: 0.0401 m/s - E/E' ratio: 16.3 - Pulmonary vein flow: blunted systolic flow, S/D<1 RV: normal size and function LA: dilated atrial size. no left atrial appendage thrombus. Velocity in the left atrial appendage is 0.762 m/s RA: normal size Intraatrial septum: no PFO Ascending aorta: Diameter: 3.51 cm, extensive intimal thickening Descending aorta: Diffuse grade 2 and 3 atheromatous disease with focal grade 4 atheromas and several penetrating ulcers Interpretation: Normal BiV function, LV EF 68%. There is LV concentric hypertrophy: LVMi 687.12 g/m 2 , RWT 0.57. Mild PI. Trace TR, MR. Grade 2 diastolic function - pseudonormal. Diffuse grade 2/3 atheromatous disease with focal grade 4 atheromas in descending aorta. Small pericardial effusion present. Post-op CHARLINE: S/p 3V CABG Normal BiV function, LV EF 65-70%. Inferior wall hypokinesis no longer present. Pericardial effusion no longer present. Exam otherwise unchanged. Julio Hussein MD 07/08/2023 9:00 AM I was present for the entire examination including interpretation. Agree with above findings AN-ANESTHESIOLOGY ANESTHESIOLOGIST [facility] 2023-07-04 15:40:07 Procedure Note Date of Service: 07/04/2023 Faculty/Fellow: Dr. Mayorga/ Dr Leiva Indication/Diagnosis: NSTEMI Procedure: selective coronary angiogram, L heart cath Consent source: patient Consent type: indications/complications discussed with patient/legal guardian; written consent obtained Time out completed: yes The sedation pre-assessment was discussed and I concurred with the plan for sedation or anesthesia as captured in the flowsheet pre-assessment rows by the nurse. Aseptic technique: Chloraprep Local Anesthesia: 1% lidocaine without epinephrine Sedation: fentanyl 25 mcg, Versed 1 mg Instrument(s) type: JL4 and JR 4 Access site: Right femoral artery Contrast: vesi 120 cc Closure Method: manual Sterile dressing: yes Complications: None Findings: Dominance: Right LM: Large vessel patent LAD: Large vessel with ostial/proximal severe 70-80% stenosis then mild 20-30% multifocal stenosis and mid focal 80-90% stenosis , then distal diffuse LI. D1: medium size vessel with ostial 60-70% stenosis D2: small vessel D3: small vessel S1: small vessel LCx: large vessel patent , proximal to mid mild LI then distal diffuse LI. OM1: small to medium size vessel with ostial 60-70% stenosis and proximal 30-40% stenosis then diffuse LI OM2: small vessel OM3: medium size that bifurcates into two branches, the second has ostial 40-50% stenosis. First branch , mild LI. RCA: Large vessel with ostial 50-60% stenosis then proximal stent patent with mild ISR then mid segment has mild LI and mid to distal has focal 30-40% stenosis. RPDA: large vessel with ostial 50-60% stenosis then mid to distal mild LI RPL: large vessel with mid 70-80% stenosis then mid LI LVEDP: 8 mm Hg Femoral angiogram: Mild atherosclerosis Aortic angiogram: tortuous right iliac artery Left subclavian artery: patent Impression: - severe proximal 70-80% and mid 80-90% LAD stenosis - moderate ostial RCA stenosis 50-60% , Mod 50-60% ostial PDA diseases and severe mid RPL 70-80% stenosis. - OM1 ostial 60-70% stenosis - D1 medium size vessel with ostial 60-70% stenosis. Plan: - Continue aggressive medical therapy - Consult CTS for CABG, if not surgical candidate then PCI could be performed ( discussed with interventional cardiology) Venita Mayorga MD 07/04/2023 3:40 PM Cardiology Faculty [employer] IM-CARDIOVASCULAR DISEASE STAFF [facility]
[2024-05-10] MEDS ORDERED: MORPHINE 4 MG/ML SYR ONE (19:25)
[2024-05-10] MEDS ORDERED: ASPIRIN 81 MG CHEWABLE TABLET ONE (19:25)
[2024-05-10] MEDS ORDERED: ONDANSETRON 4 MG/2 ML VIAL ONE (19:25)
[2024-05-10 19:34] LABS: Absolute Eosinophils 0.1 K/uL (0-0.5); Absolute Lymphocytes (CBC) 0.5 K/uL (0.7-4.9); Absolute Monocytes 1.1 K/uL (0.1-1.3); Absolute Neutrophil 5.7 K/uL (1.8-8.0); Basophils % 0.6 % (0-1.3); Eosinophils % 1.2 % (0-4.4); Hematocrit 36.1 % (39.6-49.0); Lymphocytes % 6.1 % (15.3-44.8); MCH 28.9 pg (27.0-35.0); MCHC 33.2 g/dL (32.0-36.0); MCV 87.1 fL (80-100); MPV 10.2 fL (7.6-11.3); Neutrophils % 77.1 % (41.7-73.7); Platelets 142 thou/uL (152-406); RBC Red Blood Cell Count 4.14 M/uL (4.33-5.43); Red Cell Distribution Width 15.8 % (12.1-15.2)
[2024-05-10 19:40] LABS: PT Prothrombin Time 11.6 SECONDS (9.4-12.5); Protime INR 1.11
[2024-05-10 19:57] LABS: Albumin 3.5 g/dL (3.4-5.0); Albumin/Globulin Ratio 0.7 (1.1-1.8); Anion Gap 8.4 mEq/L (5.0-15.0); Bilirubin Direct 0.2 mg/dL (0-0.2); Bilirubin Indirect, Calculated 0.6 mg/dL (0.2-0.8); Bilirubin Total 0.8 mg/dL (0.2-1.0); Magnesium 1.4 mg/dL (1.6-2.4); Potassium 3.4 mEq/L (3.5-5.1); Protein, Total 8.5 g/dL (6.4-8.2)
[2024-05-10 20:00] LABS: Troponin High Sensitivity 108.7 pg/mL (<58.9)
--- NOTE | 2024-05-10 20:00 | RAD REPORT ---
EXAMINATION: ONE VIEW CHEST XR CLINICAL INDICATION: Male, 69 years old.,CHEST PAIN TECHNIQUE: Frontal chest projection is submitted. Examination is limited by patient positioning and t echnique. COMPARISON: 07/01/2022 FINDINGS: Central interstitial prominence and perihilar fluffy opacities. Decreased inspiratory effort somewhat limits evaluation. No pneumothorax or sizable effusion. The heart is again enlarged. Sequelae of median sternotomy now noted. Mediastinal contours are otherwise unremarkable. IMPRESSION: Findings suggesting pulmonary edema, which may be of cardiogenic origin.
--- NOTE | 2024-05-10 20:04 | ER ---
Nurse's Notes [facility] Name: John Myers Age: 69 yrs Sex: Male : 1955 Arrival Date: 05/10/2024 Time: 18:28 Bed 20 Private MD: Diagnosis: Subsequent non-ST elevation (NSTEMI) myocardial infarction Presentation: 05/10 18:51 Chief complaint: Patient states: left sided chest pain radiating into neck and back , iw started a few days ago , worse today. Coronavirus screen: At this time, the client does not indicate any symptoms associated with coronavirus-19. Ebola Screen: No symptoms or risks identified at this time. Initial Sepsis Screen: Does the patient meet any 2 criteria? No. Patient's initial sepsis screen is negative. Does the patient have a suspected source of infection?. Risk Assessment: Do you want to hurt yourself or someone else? Patient reports no desire to harm self or others. Onset of symptoms was May 07, 2024. 18:51 Method Of Arrival: Wheelchair iw 18:51 Acuity: DON 3 iw Historical: - Allergies: 18:52 No Known Allergies; iw - PMHx: 18:52 Hypertensive disorder; kidney issues; iw 18:52 Myocardial infarction; iw - PSHx: 18:52 kidney transplant; old dialysis access LUE; iw 18:52 CABG; iw - Immunization history:: Adult Immunizations not up to date. - Infectious Disease History:: Denies. - Social history:: Smoking status: . Screenin:19 [facility] ED Fall Risk Assessment (Adult) History of falling in the last 3 months, cp4 including since admission No falls in past 3 months (0 pts) Confusion or Disorientation No (0 pts) Intoxicated or Sedated No (0 pts) Impaired Gait No (0 pts) Mobility Assist Device Used No (0 pt) Altered Elimination No (0 pt) Score/Fall Risk Level 0 - 2 = Low Risk Oriented to surroundings, Maintained a safe environment, Assessed \T\ reinforced patient's understanding of fall precautions, Hourly rounding (assess needs \T\ fall precautionary measures) done. Abuse screen: Denies threats or abuse. Nutritional screening: No deficits noted. Tuberculosis screening: No symptoms or risk factors identified. Assessment: 19:19 General: Appears in no apparent distress. uncomfortable, Behavior is calm, cooperative, cp4 appropriate for age. Pain: Complains of pain in chest Pain radiates to left neck Pain currently is 7 out of 10 on a pain scale. Pain began 2-3 days ago. 19:19 Neuro: Level of Consciousness is awake, alert, obeys commands, Oriented to person, cp4 place, time, situation. Cardiovascular: Patient's skin is warm and dry. Respiratory: Airway is patent Respiratory effort is even, unlabored. GI: No signs and/or symptoms were reported involving the gastrointestinal system. : No signs and/or symptoms were reported regarding the genitourinary system. EENT: No signs and/or symptoms were reported regarding the EENT system. Derm: No signs and/or symptoms reported regarding the dermatologic system. Musculoskeletal: No signs and/or symptoms reported regarding the musculoskeletal system. 20:00 Reassessment: Patient appears in no apparent distress at this time. Patient and/or cp4 family updated on plan of care and expected duration. Pain level reassessed. Patient is alert, oriented x 3, equal unlabored respirations, skin warm/dry/pink. 21:49 Reassessment: Patient appears in no apparent distress at this time. Patient and/or cp4 family updated on plan of care and expected duration. Pain level reassessed. Patient is alert, oriented x 3, equal unlabored respirations, skin warm/dry/pink. Vital Signs: 18:51 BP 209 / 100; Pulse 91; Resp 19; Temp 98.2; Pulse Ox 100% ; Weight 92.99 kg; Height 5 iw ft. 9 in. ; Pain 7/10; 20:00 BP 200 / 105; Pulse 81; Resp 18; Pulse Ox 98% ; cp4 21:43 BP 199 / 96; Pulse 86; Resp 18; Pulse Ox 98% ; cp4 18:51 Body Mass Index 30.27 (92.99 kg, 175.26 cm) iw 18:51 Pain Scale: Adult iw ED Course: 18:29 Patient arrived in ED. ra3 18:40 Norma Chinchilla PA-C is PHCP. sb4 18:40 Stu Matamoros MD is Attending Physician. sb4 18:52 Triage completed. iw 19:03 Roselia Ayon is Primary Nurse. cp4 19:19 Bed in low position. Call light in reach. Side rails up X2. Client placed on continuous cp4 cardiac and pulse oximetry monitoring. NIBP monitoring applied. billing spec on. Pulse ox on. NIBP on. 19:19 No provider procedures requiring assistance completed. Initial lab(s) drawn, by me, cp4 sent to lab. Inserted saline lock: 20 gauge in right antecubital area, using aseptic technique. Blood collected. Flushed with 10 mL NS. Patient maintains SpO2 saturation greater than 95% on room air. 19:28 XRAY Chest (1 view) In Process Unspecified. EDMS 20:03 Vahid Van MD is Hospitalizing Provider. sb4 22:39 Arm band placed on right wrist. Patient placed in waiting room. cp4 22:39 Provided Education on: admission. cp4 22:39 Patient admitted, IV remains in place. cp4 Administered Medications: 19:29 Drug: Ondansetron IVP 4 mg IVP once; over 2 minutes Route: IVP; Site: right antecubital;cp4 21:20 Follow up: Response: No adverse reaction cp4 19:29 Drug: Aspirin PO Chewable Tablet 162 mg PO once Route: PO; cp4 21:20 Follow up: Response: No adverse reaction cp4 19:30 Drug: morphine IVP or IV 4 mg IVP once over 4 mins Route: IVP; Infused Over: 4 mins; cp4 Site: right antecubital; 21:20 Follow up: Response: No adverse reaction; Pain is decreased cp4 Medication: 19:19 VIS not applicable for this client. cp4 Outcome: 20:03 Decision to Hospitalize by Provider. sb4 22:39 Admitted to Med/surg accompanied by tech, via wheelchair, with chart, cp4 22:39 Condition: stable 22:39 Instructed on the need for admit, 22:40 Patient left the ED. cp4 Signatures: Dispatcher [employer] Dona Castañeda RN RN Norma Juarez PA-C PA-C sb4 Roselia Ayon cp4 Kari Nowak ra3 Corrections: (The following items were deleted from the chart) 18:53 18:51 Pulse 91bpm; Resp 19bpm; Pulse Ox 100%; Temp 98.2F; 92.99 kg; Height 5 ft. 9 in.; iw BMI: 30.2; Pain 7/10, Adult; iw
--- NOTE | 2024-05-10 20:04 | EDPHYS ---
Physician Documentation [facility] Name: John Myers Age: 69 yrs Sex: Male : 1955 Arrival Date: 05/10/2024 Time: 18:28 Bed 20 Private MD: ED Physician Stu Matamoros HPI: 05/10 19:12 This 69 yrs old Black Male presents to ER via Wheelchair with complaints of Chest Pain. sb4 19:12 patient reports left sided chest pain that radiates up to his left jaw x 2 days and is sb4 progressively getting worse. denies any dizziness or shortness of breath. has extensive cardiac history, had triple bypass within the past 2 years. has a history of CKD s/p kidney transplant 2.5 year ago, is on antirejection meds. is not currently on any blood thinners. Historical: - Allergies: 18:52 No Known Allergies; iw - PMHx: 18:52 Hypertensive disorder; kidney issues; iw 18:52 Myocardial infarction; iw - PSHx: 18:52 kidney transplant; old dialysis access LUE; iw 18:52 CABG; iw - Immunization history:: Adult Immunizations not up to date. - Infectious Disease History:: Denies. - Social history:: Smoking status: . ROS: 19:12 Constitutional: Negative for fever, chills, and weight loss, sb4 19:12 Cardiovascular: Positive for chest pain, 19:12 All other systems are negative, Exam: 19:12 Head/Face: Normocephalic, atraumatic. Eyes: Extra-ocular motions intact. Periorbital sb4 areas with no swelling, redness, or edema. ENT: Mucous membranes moist. Cardiovascular: Regular rate and rhythm with a normal S1 and S2. Respiratory: No increased work of breathing, no retractions or nasal flaring. Abdomen/GI: Soft, non-tender, no distension. Skin: Warm, dry with normal turgor. Normal color with no rashes, no lesions, and no evidence of cellulitis. 19:12 Constitutional: The patient appears alert, awake, uncomfortable, Vital Signs: 18:51 BP 209 / 100; Pulse 91; Resp 19; Temp 98.2; Pulse Ox 100% ; Weight 92.99 kg; Height 5 iw ft. 9 in. ; Pain 7/10; 20:00 BP 200 / 105; Pulse 81; Resp 18; Pulse Ox 98% ; cp4 21:43 BP 199 / 96; Pulse 86; Resp 18; Pulse Ox 98% ; cp4 18:51 Body Mass Index 30.27 (92.99 kg, 175.26 cm) iw 18:51 Pain Scale: Adult iw MDM: 18:51 Medical Screening Exam initiated [facility] 05/10 18:53 Order name: Basic Metabolic Panel; Complete Time: 20:01 [facility] 05/10 18:53 Order name: CBC with Diff; Complete Time: 19:42 [facility] 05/10 18:53 Order name: LFT's; Complete Time: 20:01 [facility] 05/10 18:53 Order name: Magnesium; Complete Time: 20:01 [facility] 05/10 18:53 Order name: NT PRO-BNP; Complete Time: 20:01 [facility] 05/10 18:53 Order name: PT-INR; Complete Time: 19:42 [facility] 05/10 18:53 Order name: Troponin HS; Complete Time: 20:01 [facility] 05/10 20:19 Order name: Urinalysis w/ reflexes [facility] 05/10 20:19 Order name: CBC with Automated Diff [facility] 05/10 20:19 Order name: CBC with Automated Diff [facility] 05/10 20:19 Order name: Comprehensive Metabolic Panel [facility] 05/10 20:19 Order name: Comprehensive Metabolic Panel [facility] 05/10 20:19 Order name: Troponin High Sensitivity [facility] 05/10 20:19 Order name: Troponin High Sensitivity [facility] 05/10 20:19 Order name: Troponin High Sensitivity [facility] 05/10 20:19 Order name: Troponin High Sensitivity [facility] 05/10 18:53 Order name: XRAY Chest (1 view); Complete Time: 20:02 [facility] 05/10 18:53 Order name: EKG; Complete Time: 18:53 [facility] 05/10 18:53 Order name: Cardiac monitoring; Complete Time: 19:30 [facility] 05/10 18:53 Order name: EKG - Nurse/Tech; Complete Time: 19:30 [facility] 05/10 18:53 Order name: IV Saline Lock; Complete Time: 19:30 [facility] 05/10 18:53 Order name: Labs collected and sent; Complete Time: 19:30 [facility] 05/10 18:53 Order name: O2 Per Protocol; Complete Time: 19:30 sb4 05/10 18:53 Order name: O2 Sat Monitoring; Complete Time: 19:30 sb4 EC: Rate is 91 beats/min. Rhythm is irregularly irregular, A flutter. QRS interval is sb4 normal at 162 msec. QT interval is normal at 424 msec. No Q waves. T waves are Normal. No ST changes noted. Clinical impression: Atrial Fibrillation. Interpreted by me. Reviewed by me. Administered Medications: 19:29 Drug: Ondansetron IVP 4 mg IVP once; over 2 minutes Route: IVP; Site: right antecubital;cp4 21:20 Follow up: Response: No adverse reaction cp4 19:29 Drug: Aspirin PO Chewable Tablet 162 mg PO once Route: PO; cp4 21:20 Follow up: Response: No adverse reaction cp4 19:30 Drug: morphine IVP or IV 4 mg IVP once over 4 mins Route: IVP; Infused Over: 4 mins; cp4 Site: right antecubital; 21:20 Follow up: Response: No adverse reaction; Pain is decreased cp4 Disposition Summary: 05/10/24 20:03 Hospitalization Ordered Notes: Hospitalization Status: Inpatient Admission sb4 Provider: Vahid Van sb4 Location: Telemetry/MedSurg (Inpatient) sb4 Condition: Fair sb4 Problem: new sb4 Symptoms: are unchanged sb4 Bed/Room Type: Standard 4 Room Assignment: 414(05/10/24 21:11) [facility] Diagnosis - Subsequent non-ST elevation (NSTEMI) myocardial infarction sb4 Forms: - Medication Reconciliation Form sb4 - SBAR form sb4 - Leadership Thank You Letter sb4 Addendum: 05/14/2024 09:40 Co-signature as Attending Physician, Stu Matamoros MD I reviewed the patient's care r n provided by the Advanced Practice Provider and agree with the diagnosis and treatment plan. Signatures: Dispatcher [employer] Dona Castañeda RN RN iw Nieto, Roman, MD MD rn Brown, Sophia, PA-C PAWilliams sb4 Roselia Ayon 4 [facility] Corrections: (The following items were deleted from the chart) 05/10 19:59 19:12 patient reports left sided chest pain that radiates up to his left jaw x 2 days sb4 and is progressively getting worse. denies any dizziness or shortness of breath. has extensive cardiac history, had triple bypass within the past 2 years. has a history of CKD s/p kidney transplant 1 year ago, is on antirejection meds. is not currently on any blood thinners. sb4 21:11 20:03 sb4 kmf
[2024-05-10] MEDS ORDERED: ONDANSETRON 4 MG/2 ML VIAL IV PRN (20:14)
--- NOTE | 2024-05-10 20:14 | P.HP ---
Certification for Inpatient Patient admitted to: Inpatient With expected LOS: >2 Midnights Practitioner: I am a practitioner with admitting privileges, knowledge of patient current condition, hospital course, and medical plan of care. Services: Services provided to patient in accordance with Admission requirements found in Title 42 Section 412.3 of the Code of Federal Regulations Patient History Date of Service: 05/10/24 Reason for admission: CP History of Present Illness: 69 yrs old Male with past medical history of hypertension, hyperlipidemia, CAD, history of NV, status post CABG, history of CKD, history of kidney transplant who was brought to ER with chest pain which has been going on for the last 2 days and has been progressively getting worse and was brought to ER. No fever or chills. No nausea vomiting or diarrhea. Pain is located retrosternally with radiation to the left side of the chest also with radiation to jaw, worse with movements. Denies any cough Patient was assessed in the ER and is admitted for further management of chest pain rule out ACS and NSTEMI and pulmonary edema Allergies No Known Allergies Allergy (Verified 06/29/22 21:09) Home medications list reviewed: Yes Home Medications: Aspirin [Aspirin EC 325 MG] 325 mg PO DAILY 06/29/22 Ezetimibe [Zetia*] 10 mg PO DAILY 06/29/22 Fluticasone Propionate [Flovent Hfa] 12 gm IH BID 06/29/22 Labetalol HCl [Trandate] 200 mg PO BID 06/29/22 Minoxidil 5 mg PO BID 06/29/22 Pravastatin [Pravachol*] 40 mg PO BEDTIME 06/29/22 Tacrolimus 4 mg PO DAILY AT SUPPER 06/29/22 Tacrolimus 5 mg PO DAILY WITH BREAKFAST 06/29/22 Tamsulosin [Flomax*] 0.4 mg PO DAILY 06/29/22 allopurinoL [Allopurinol] 100 mg PO DAILY 06/29/22 lisinopriL [Lisinopril] 5 mg PO DAILY 06/29/22 mycophenolate mofetiL [Mycophenolate Mofetil] 250 mg PO BID 06/29/22 predniSONE [Prednisone*] 5 mg PO DAILY 06/29/22 Amlodipine [Norvasc*] 10 mg PO DAILY #30 tab 07/01/22 Clopidogrel Bisulfate [Plavix] 75 mg PO DAILY 30 Days #30 tab 07/01/22 - Past Medical/Surgical History Diabetic: No Past Medical History: Reviewed- Non-Contributory -: HTN -: CAD. Diastolic CHF. LVH. -: HLD -: CKD III sp Renal Transplant ([facility]). Immunosuppression. -: ANG. Pulmonary nodules. -: Nephrolithiasis of transplanted kidney -: BPH with LUTS -: Gout -: HCV -: Hx Syphilis -: Lacunar infarct 20 -: PreDM Past Surgical History: Reviewed- Non-Contributory -: AVF -: Nephrectomy -: Parathyroidectomy -: CAD stent -: Cholecystectomy - Family History Family History: Reviewed- Non-Contributory - Social History Smoking Status: Never smoker Alcohol use: Yes CD- Drugs: No Review of Systems 10-point ROS is otherwise unremarkable Physical Examination - Vital Signs Temperature: 97.8 F Blood Pressure: 190/96 Pulse: 78 Respirations: 18 Pulse Ox (%): 94 - Physical Exam General: Alert, Oriented x3, Mild distress HEENT: Atraumatic, Normocephalic Neck: Supple Respiratory: Clear to auscultation bilaterally, Normal air movement, Crackles/rales Cardiovascular: Regular rate/rhythm, Normal S1 S2 Capillary refill: <2 Seconds Gastrointestinal: Soft and benign, W/out hepatosplenomegaly Musculoskeletal: No clubbing Integumentary: No rashes, No breakdown Neurological: Normal speech, Normal strength at 5/5 x4 extr Lymphatics: No axilla or inguinal lymphadenopathy - Studies Laboratory Data (last 24 hrs) 05/10/24 05/10/24 05/10/24 19:16 19:16 19:16 WBC 7.40 Hgb 12.0 L Hct 36.1 L Plt Count 142 L PT 11.6 INR 1.11 Sodium 136 Potassium 3.4 L BUN 10 Creatinine 1.42 H Glucose 118 H Magnesium 1.4 L Total Bilirubin 0.8 AST 22 ALT 17 Alkaline Phosphatase 101 Assessment and Plan - Plan NSTEMI Will trend cardiac enzymes Will monitor telemetry Started on aspirin and statin EKG noted Will get an echocardiogram Cardiology consult Will start on heparin drip if cardiac enzymes trending high Hypertensive emergency Hydralazine as needed Continue home medications and titrate as needed Acute on chronic CHF possibly systolic/diastolic Monitor closely on telemetry Started on aggressive diuresis X-ray findings consistent with CHF Oxygen supplementation Will try to wean down oxygen requirement Continue home medications Titrate as needed Will obtain an echocardiogram Cardiology consult Hyperlipidemia Continue statin CKD stage II Monitor renal parameters Electrolytes monitor and replace accordingly GI/DVT prophylaxis Advanced directive full code Discharge Plan: Home Plan to discharge in: 48 Hours - Advance Directives Does patient have a Living Will: No Does patient have a Durable POA for Healthcare: No - Code Status/Comfort Care Code Status: Full Code Time Spent Managing Pts Care (In Minutes): 48
[2024-05-11] MEDS: FUROSEMIDE 20 MG/ 2ML VIAL IV SCH (00:18)
[2024-05-11] MEDS: ACETAMINOPHEN 325 MG TABLET PO PRN (00:27)
[2024-05-11 07:22] LABS: Absolute Basophils 0.1 K/uL (0-0.5); Absolute Eosinophils 0.1 K/uL (0-0.5); Absolute Lymphocytes (CBC) 0.6 K/uL (0.7-4.9); Absolute Monocytes 1.4 K/uL (0.1-1.3); Absolute Neutrophil 5.6 K/uL (1.8-8.0); Basophils % 0.7 % (0-1.3); Eosinophils % 0.8 % (0-4.4); Hematocrit 36.4 % (39.6-49.0); Hemoglobin 12.1 g/dL (13.6-17.9); MCH 28.9 pg (27.0-35.0); MCHC 33.2 g/dL (32.0-36.0); MPV 10.3 fL (7.6-11.3); Monocytes % 17.8 % (3.3-12.3); Neutrophils % 72.7 % (41.7-73.7); Platelets 133 thou/uL (152-406); RBC Red Blood Cell Count 4.19 M/uL (4.33-5.43); Red Cell Distribution Width 15.9 % (12.1-15.2)
[2024-05-11 07:55] LABS: AST/SGOT 17 U/L (15-37); Albumin 2.9 g/dL (3.4-5.0); Albumin/Globulin Ratio 0.6 (1.1-1.8); Alkaline Phosphatase 88 U/L (45-117); Anion Gap 9.3 mEq/L (5.0-15.0); BUN Blood Urea Nitrogen 10 mg/dL (7-18); Bicarbonate 25 mEq/L (21-32); Bilirubin Total 0.8 mg/dL (0.2-1.0); Globulin 4.8 g/dL (2.3-3.5); Glomerular Filtration Rate 50 ml/min (=/>90); Glucose Level 98 mg/dL (74-106); Potassium 3.3 mEq/L (3.5-5.1); Protein, Total 7.7 g/dL (6.4-8.2); Sodium Level 136 mEq/L (136-145)
[2024-05-11 07:56] LABS: ALT/SGPT < 14 U/L (16-61)
[2024-05-11 07:58] LABS: Troponin High Sensitivity 140.2 pg/mL (<58.9)
[2024-05-11] MEDS: AMLODIPINE 10 MG TAB PO SCH (09:00)
[2024-05-11] MEDS: predniSONE 5 MG TAB PO SCH (09:00)
[2024-05-11] MEDS: lisinopriL 5 MG TAB PO SCH (09:00)
[2024-05-11] MEDS: minoxidiL 2.5 MG TAB PO SCH (09:00)
[2024-05-11] MEDS: LABETALOL HCL 100 MG TAB PO SCH (09:00)
[2024-05-11] MEDS: EZETIMIBE 10 MG TAB PO SCH (09:00)
[2024-05-11] MEDS: FLUTICASONE PROPIONATE IH SCH (09:00)
[2024-05-11] MEDS: TAMSULOSIN 0.4 MG SR CAP PO SCH (09:00)
[2024-05-11] MEDS: ASPIRIN EC 325 MG TABLET PO SCH (09:00)
[2024-05-11] MEDS: allopurinoL 100 MG TAB PO SCH (09:00)
[2024-05-11] MEDS: CLOPIDOGREL 75 MG TABLET PO SCH (09:00)
[2024-05-11] MEDS: MYCOPHENOLATE MOFETIL 250 MG PO SCH (09:00)
[2024-05-11] MEDS ORDERED: HEPARIN 10,000 UNIT/10 ML VIAL IV ONE (11:29)
[2024-05-11] MEDS ORDERED: HEPA 1000U/500MLS 2,000 UNIT/1,000 ML BAG IV ONE (11:29)
[2024-05-11] MEDS ORDERED: ATROPINE SULF 1 MG/10 ML SYR IV ONE (11:30)
[2024-05-11] MEDS ORDERED: MIDAZOLAM HCL 2 MG/2 ML INJ ONE (11:30)
[2024-05-11] MEDS ORDERED: LIDOCAINE 1% 20 ML MDV ONE (11:30)
[2024-05-11] MEDS ORDERED: ASPIRIN 325 MG TAB ONE (11:31)
[2024-05-11] MEDS ORDERED: FENTANYL CITR 100 MCG/2 ML ONE (11:31)
[2024-05-11] MEDS ORDERED: CLOPIDOGREL 75 MG TABLET ONE (11:31)
[2024-05-11] MEDS ORDERED: TICAGRELOR 90 MG TABLET PO ONE (11:31)
[2024-05-11] MEDS ORDERED: NA CHLORIDE 0.9% 1,000 ML ONE (11:38)
--- NOTE | 2024-05-11 13:24 | P.PN ---
Date of Service: 05/11/24 Subjective: chest pain continues ~same reports dealing with neck soreness for ~3-4 days breathing okay on room air no events overnight 100.3 temp this morning ROS: 10 point ROS as noted above, otherwise negative Physical Exam: GEN: Alert, oriented, NAD CV: Regular rate and rhythm, no edema Pulm: Nonlabored respirations on room air, clear bilaterally ABD: soft, nontender, nondistended Neuro: Normal speech, normal affect Problem List: NSTEMI Acute on chronic diastolic CHF Hx CAD s/p CABG (2023 @[facility]) Hypertensive Urgency CKD3 Hx Kidney Transplant (2004) Hyperlipidemia Obstructive Sleep Apnea Hx BPH with LUTS Hx Gout NSTEMI Acute on chronic diastolic CHF Hx CAD s/p CABG (2023 @[facility]) on admission, presents with 2 days of chest pain, neck soreness. Also reports feeling weak, generally unwell this past week Denies fever, chills, n/v/d. No trouble swallowing. Trend troponins; mildly elevated x3 Prior [facility] (June 2023): severe proximal LAD stenosis 70-80%, 80-90% mid LAD stenosis, moderate ostial RCA stenosis 50-60%, moderate 50-60% ostial PDA disease and severe mid RPL 70-80% stenosis, OM1 ostial 60-70% Prior [facility] (07/04/2023): 50-55% EF Monitor on telemetry Cardiology consulted cath planned continue statin, plavix, aspirin 325 mg CXR (05/10): pulmonary edema continue IV lasix 20 mg BID Echo ordered to eval EF / stenosis NPO for now Hypertensive Urgency confirm home meds continue amlodipine, lisinopril, labetalol CKD3 Hx Kidney Transplant (2004) continue to monitor renal function Monitor and replete electrolytes as needed Nephrology consulted Hyperlipidemia Obstructive Sleep Apnea Hx BPH with LUTS Hx Gout confirm home meds, restart as appropriate Code: Full Dispo: Home, ~24-48hrs Time Spent Managing Pts Care (In Minutes): 55
--- NOTE | 2024-05-11 13:31 | P.CNS ---
Date of Consult: 05/11/24 Chief Complaint: CP History of Present Illness: Patient with PMH of CAD s/p CABG (free BALL-LAD, SVG-D, SVG-RPDA) history of kidney transplant, CKD, presented with chest pain that has been going on for 1 week, also mention that his BP has been high despite taking his medications. Allergies No Known Allergies Allergy (Verified 06/29/22 21:09) Home medications list reviewed: Yes Home Medications: Ezetimibe [Zetia*] 10 mg PO DAILY 06/29/22 Labetalol HCl [Trandate] 200 mg PO BID 06/29/22 Minoxidil 5 mg PO BID 06/29/22 Pravastatin [Pravachol*] 40 mg PO BEDTIME 06/29/22 Tacrolimus 20 mg PO Q12H 06/29/22 Tamsulosin [Flomax*] 0.8 mg PO DAILY 06/29/22 allopurinoL [Allopurinol] 100 mg PO DAILY 06/29/22 lisinopriL [Lisinopril] 10 mg PO DAILY 06/29/22 mycophenolate mofetiL [Mycophenolate Mofetil] 500 mg PO BID 06/29/22 predniSONE [Prednisone*] 5 mg PO DAILY 06/29/22 Furosemide 20 mg PO BID 05/11/24 Mirtazapine 7.5 mg PO BEDTIME 05/11/24 Sucralfate [Carafate -Tab] 1 gm PO QID 05/11/24 - Past Medical/Surgical History Diabetic: No -: HTN -: CAD. Diastolic CHF. LVH. -: HLD -: CKD III sp Renal Transplant ([facility]). Immunosuppression. -: ANG. Pulmonary nodules. -: Nephrolithiasis of transplanted kidney -: BPH with LUTS -: Gout -: HCV -: Hx Syphilis -: Lacunar infarct 2--20 -: PreDM -: AVF -: Nephrectomy -: Parathyroidectomy -: CAD stent -: Cholecystectomy -: kidney transplant - Social History Smoking Status: Former smoker Alcohol use: Yes CD- Drugs: No Place of Residence: Home Review of Systems 10-point ROS is otherwise unremarkable Physical Examination Temp Pulse Resp BP Pulse Ox 100.3 F 89 18 186/86 H 94 05/11/24 08:00 05/11/24 08:00 05/11/24 08:00 05/11/24 08:00 05/11/24 08:00 General: Alert, In no apparent distress HEENT: Atraumatic, PERRLA, Mucous membr. moist/pink, EOMI, Sclerae nonicteric Neck: Supple, 2+ carotid pulse no bruit, No LAD, Without JVD or thyroid abnormality Respiratory: Clear to auscultation bilaterally, Normal air movement Cardiovascular: Regular rate/rhythm, Normal S1 S2 Gastrointestinal: Normal bowel sounds, No tenderness Musculoskeletal: No tenderness Integumentary: No rashes Neurological: Normal gait, Normal speech, Normal tone, Normal affect Lymphatics: No axilla or inguinal lymphadenopathy Laboratory Data (last 24 hrs) 05/10/24 05/10/24 05/10/24 19:16 19:16 19:16 WBC 7.40 Hgb 12.0 L Hct 36.1 L Plt Count 142 L PT 11.6 INR 1.11 Sodium 136 Potassium 3.4 L BUN 10 Creatinine 1.42 H Glucose 118 H Magnesium 1.4 L Total Bilirubin 0.8 AST 22 ALT 17 Alkaline Phosphatase 101 - Problems (1) NSTEMI (non-ST elevated myocardial infarction) Current Visit: Yes Status: Acute Plan: Patient with PMH of CAD s/p CABG 2023, presented with worsening chest pain and mild troponin leak NPO for coronary angiogram ASA 81 mg daily Plavix 75 mg daily lipitor 40 mg daily
[2024-05-11] MEDS: TACROLIMUS 1 MG PO SCH ×2 (17:00→18:05)
[2024-05-11] MEDS: HYDRALAZINE HCL 20 MG/ML VIAL IV PRN (17:15)
[2024-05-11] MEDS: CYCLOBENZAPRINE 10 MG TAB PO PRN (17:31)
--- NOTE | 2024-05-11 18:53 | RAD REPORT ---
Procedure: Chest Single View HISTORY: Shortness of breath COMPARISON: May 10, 2024 FINDINGS: The lungs appear clear of acute infiltrate. No significant pleural effusion noted. The heart is moderately enlarged. Post surgical changes involve the chest. IMPRESSION: No acute abnormality is displayed.
[2024-05-11] MEDS: TICAGRELOR 90 MG TABLET PO SCH (20:15)
[2024-05-11] MEDS: POTASSIUM CL SA 10 MEQ TAB PO ONE (20:15)
[2024-05-11] MEDS: SUCRALFATE 1 GM TABLET PO SCH (20:16)
[2024-05-11] MEDS: ATORVASTATIN 10 MG TAB PO SCH (20:16)
[2024-05-11] MEDS: MIRTAZAPINE 15 MG TAB PO SCH (20:16)
[2024-05-11] MEDS ORDERED: HOME MED 1 EA UNK (Mirtazapine [Mirtazapine] 7.5 MG Tablet) PO SCH (21:00)
[2024-05-12 06:46] LABS: Absolute Lymphocytes (CBC) 0.5 K/uL (0.7-4.9); Absolute Monocytes 1.2 K/uL (0.1-1.3); Absolute Neutrophil 6.5 K/uL (1.8-8.0); Basophils % 0.3 % (0-1.3); Eosinophils % 0.3 % (0-4.4); Hematocrit 38.1 % (39.6-49.0); Hemoglobin 12.4 g/dL (13.6-17.9); Lymphocytes % 5.6 % (15.3-44.8); MCH 28.5 pg (27.0-35.0); MCHC 32.4 g/dL (32.0-36.0); MCV 87.8 fL (80-100); MPV 10.3 fL (7.6-11.3); Monocytes % 14.7 % (3.3-12.3); Neutrophils % 79.1 % (41.7-73.7); Nucleated Red Blood Cells % 0.1 % (0-0); Platelets 155 thou/uL (152-406); RBC Red Blood Cell Count 4.34 M/uL (4.33-5.43); Red Cell Distribution Width 15.8 % (12.1-15.2)
[2024-05-12 07:03] LABS: Anion Gap 8.6 mEq/L (5.0-15.0); Magnesium 1.7 mg/dL (1.6-2.4); Phosphorus 2.2 mg/dL (2.5-4.9); Potassium 3.6 mEq/L (3.5-5.1)
--- NOTE | 2024-05-12 09:46 | P.PN ---
Date of Service: 05/12/24 Subjective: felt short of breath last night, worsened with exertion breathing more comfortably on room air this morning continues with neck pain, slightly less tender / not as tight afebrile ROS: 10 point ROS as noted above, otherwise negative Physical Exam: GEN: Alert, oriented, NAD CV: Regular rate and rhythm, no edema Pulm: Nonlabored respirations on room air, clear bilaterally MSK: b/l neck /posterior neck - palpation of SCM/trapezius/platysma muscles soreness Neuro: Normal speech, normal affect Problem List: NSTEMI, now s/p PCI Acute on chronic diastolic CHF (HFpEF) Hx CAD s/p CABG (2023 @[facility]) Hypertensive Urgency CKD3 Hx Kidney Transplant (2004) Hyperlipidemia Obstructive Sleep Apnea Hx BPH with LUTS Hx Gout NSTEMI, now s/p PCI Acute on chronic diastolic CHF (HFpEF) Hx CAD s/p CABG (2023 @[facility]) on admission, presents with 2 days of chest pain, neck soreness. Also reports feeling weak, generally unwell this past week Denies fever, chills, n/v/d. No trouble swallowing. Trend troponins; mildly elevated x3 Monitor on telemetry Cardiology consulted s/p C (05/11); noted significant BALL-LAD disease s/p PCI. Official report pending continue statin, brilinta, aspirin 81 mg continue IV lasix 20 mg BID Respiratory status improving. Breathing okay on room air. Some SOB noted with exertion overnight. Echo (05/12): 60-65% EF, severe concentric LVH, grade 1 diastolic dysfunction, normal filling pressures. Hypertensive Urgency confirm home meds continue amlodipine, lisinopril, labetalol CKD3 Hx Kidney Transplant (2004) continue to monitor renal function Monitor and replete electrolytes as needed Nephrology consulted Hyperlipidemia Obstructive Sleep Apnea Hx BPH with LUTS Hx Gout confirm home meds, restart as appropriate Code: Full Dispo: Home, ~1 day Time Spent Managing Pts Care (In Minutes): 55
--- NOTE | 2024-05-12 09:54 | P.CNS ---
Date of Consult: 05/12/24 Reason for Consult: KATLYN/ CKD Requesting Physician: Tyron Matamoros Chief Complaint: CP History of Present Illness: 69 yrs old Male with past medical history of hypertension, hyperlipidemia, CAD, history of AL, status post CABG, history of CKD, history of kidney transplant who was brought to ER with chest pain which has been going on for the last 2 days and has been progressively getting worse and was brought to ER. No fever or chills. No nausea vomiting or diarrhea. Pain is located retrosternally with radiation to the left side of the chest also with radiation to jaw, worse with movements. Denies any cough Patient was assessed in the ER and is admitted for further management of chest pain rule out ACS and NSTEMI and pulmonary edema [id number] 19:12 This 69 yrs old Black Male presents to ER via Wheelchair with complaints of Chest Pain. sb4 19:12 patient reports left sided chest pain that radiates up to his left jaw x 2 days and is sb4 progressively getting worse. denies any dizziness or shortness of breath. has extensive cardiac history, had triple bypass within the past 2 years. has a history of CKD s/p kidney transplant 2.5 year ago, is on antirejection meds. is not currently on any blood thinners. Allergies No Known Allergies Allergy (Verified 06/29/22 21:09) Home medications list reviewed: Yes Home Medications: Ezetimibe [Zetia*] 10 mg PO DAILY 06/29/22 Labetalol HCl [Trandate] 200 mg PO BID 06/29/22 Minoxidil 5 mg PO BID 06/29/22 Pravastatin [Pravachol*] 40 mg PO BEDTIME 06/29/22 Tacrolimus 20 mg PO Q12H 06/29/22 Tamsulosin [Flomax*] 0.8 mg PO DAILY 06/29/22 allopurinoL [Allopurinol] 100 mg PO DAILY 06/29/22 lisinopriL [Lisinopril] 10 mg PO DAILY 06/29/22 mycophenolate mofetiL [Mycophenolate Mofetil] 500 mg PO BID 06/29/22 predniSONE [Prednisone*] 5 mg PO DAILY 06/29/22 Furosemide 20 mg PO BID 05/11/24 Mirtazapine 7.5 mg PO BEDTIME 05/11/24 Sucralfate [Carafate -Tab] 1 gm PO QID 05/11/24 - Past Medical/Surgical History Diabetic: No -: HTN -: CAD. Diastolic CHF. LVH. -: HLD -: CKD III sp Renal Transplant ([facility] Immunosuppression. -: ANG. Pulmonary nodules. -: Nephrolithiasis of transplanted kidney -: BPH with LUTS -: Gout -: HCV -: Hx Syphilis -: Lacunar infarct 06-03-19 -: PreDM -: AVF -: Nephrectomy -: Parathyroidectomy -: CAD stent -: Cholecystectomy -: kidney transplant - Social History Smoking Status: Former smoker Alcohol use: Yes CD- Drugs: No Place of Residence: Home Review of Systems 10-point ROS is otherwise unremarkable Musculoskeletal: Neck Pain Physical Examination Temp Pulse Resp BP Pulse Ox 98.2 F 88 18 165/81 H 98 05/12/24 04:00 05/12/24 04:00 05/12/24 04:00 05/12/24 04:00 05/12/24 04:00 General: In no apparent distress, Oriented x3, Cooperative HEENT: Atraumatic Neck: Supple Respiratory: Clear to auscultation bilaterally Cardiovascular: No edema, Regular rate/rhythm Gastrointestinal: Soft and benign, Non-distended Musculoskeletal: No clubbing, No contractures Integumentary: No rashes, No cyanosis Neurological: Normal speech Blood work reviewed in the chart. Imagings Data: Reason for Exam: shortness of breath Report Status: Signed Procedure: Chest Single View HISTORY: Shortness of breath COMPARISON: May 10, 2024 FINDINGS: The lungs appear clear of acute infiltrate. No significant pleural effusion noted. The heart is moderately enlarged. Post surgical changes involve the chest. IMPRESSION: No acute abnormality is displayed. EXAMINATION: ONE VIEW CHEST XR CLINICAL INDICATION: Male, 69 years old.,CHEST PAIN TECHNIQUE: Frontal chest projection is submitted. Examination is limited by patient positioning and technique. COMPARISON: 07/01/2022 FINDINGS: Central interstitial prominence and perihilar fluffy opacities. Decreased inspiratory effort somewhat limits evaluation. No pneumothorax or sizable effusion. The heart is again enlarged. Sequelae of median sternotomy now noted. Mediastinal contours are otherwise unremarkable. IMPRESSION: Findings suggesting pulmonary edema, which may be of cardiogenic origin. Conclusions/Impression: Stage I KATLYN CKD III -No NSAIDs -Reduce Lasix Renal Transplant Status -Continue Prednisone -Continue Tacrolimus and Mycophenolate Hypokalemia -Replete prn Hypophosphatemia -Encourage nutrition HTN with CKD/ CHF -Continue Lisinopril and Amlodipine -Continue Minoxidil -Continue Labetolol Diastolic CHF, A/C -Continue Lasix Hypoalbuminemia -Encourage nutrition Anemia in chronic illness -Monitor H&H BPH with LUTS -Continue tamsulosin Case reviewed with Dr. Matamoros Thank you kindly for the consultation
[2024-05-12] MEDS: ASPIRIN 81 MG CHEWABLE TABLET PO SCH (10:07)
--- NOTE | 2024-05-12 11:22 | P.PN ---
Subjective Date of Service: 05/12/24 Chief Complaint: CP Subjective: No new changes, No C/O voiced, Tolerating diet, Ambulating, Improving Review of Systems 10-point ROS is otherwise unremarkable Physical Examination - Vital Signs Temperature: 99.0 F Blood Pressure: 173/89 Pulse: 76 Respirations: 15 Pulse Ox (%): 96 - Physical Exam General: Alert, In no apparent distress HEENT: Atraumatic, PERRLA, EOMI Neck: Supple, JVD not distended Respiratory: Clear to auscultation bilaterally, Normal air movement Cardiovascular: Regular rate/rhythm, Normal S1 S2 Gastrointestinal: Normal bowel sounds, No tenderness Musculoskeletal: No tenderness Integumentary: No rashes Neurological: Normal speech, Normal tone, Normal affect Lymphatics: No axilla or inguinal lymphadenopathy - Studies Medications List Reviewed: Yes Assessment And Plan - Current Problems (Diagnosis) (1) NSTEMI (non-ST elevated myocardial infarction) Current Visit: Yes Status: Acute Plan: Patient with PMH of CAD s/p CABG 2023, presented with worsening chest pain and mild troponin leak Coronary angiogram done and shown significant free BALL-LAD touch down disease s/p PCI with Synergy ROBIN ASA 81 mg daily Brilinta 90 mg po BID lipitor 40 mg daily
--- NOTE | 2024-05-12 11:26 | ECHO ---
HEIGHT: 5 ft 9 in WEIGHT: 205 lb 0.126 ozDATE OF STUDY: 05/12/2024REFER DR: Gideon Van DO 2-DIMENSIONAL: YES M.MODE: YES DOPPLER: YES COLOR FLOW: YES TDS: NO PORTABLE: YES DEFINITY: NO BUBBLE STUDY: NO DIAGNOSIS: CONGESTIVE HEART FAILURE CARDIAC HISTORY: CATHERIZATION:YES SURGERY: YES PROSTHETIC VALVE: NO PACEMAKER: NO MEASUREMENTS (cm) DIASTOLIC (NORMALS) SYSTOLIC (NORMALS) IVSd 1.3 (0.6-1.2) LA Diam 4.3 (1.9-4.0) LVEF 60-65% LVIDd 4.8 (3.5-5.7) LVIDs 3.1 (2.0-3.5) %FS 36% LVPWd 1.8 (0.6-1.2) Ao Diam 3.1 (2.0-3.7) 2 DIMENSIONAL ASSESSMENT: RIGHT ATRIUM: NORMAL LEFT ATRIUM: MILD DILATED RIGHT VENTRICLE: NORMAL LEFT VENTRICLE: SEVERE LEFT VENTRICULAR HYPERTROPHY TRICUSPID VALVE: MILD TRICUSPID REGURGITATION MITRAL VALVE: NORMAL PULMONIC VALVE: NORMAL AORTIC VALVE: NORMAL PERICARDIAL EFFUSION: NONE AORTIC ROOT: NORMAL LEFT VENTRICULAR WALL MOTION: NORMAL. DOPPLER/COLOR FLOW: GRADE I DIASTOLIC DYSFUNCTION. COMMENTS: 1. SEVERE CONCENTRIC LEFT VENTRICULAR HYPERTROPHY. 2. NORMAL LEFT VENTRICULAR SYSTOLIC FUNCTION. LEFT VENTRICULAR EJECTION FRACTION 60-65%. 3. GRADE I DIASTOLIC DYSFUNCTION. 4. NORMAL FILLING PRESSURES. RIGHT ATRIAL PRESSURE 0-5 mmHg. TECHNOLOGIST: MAUDE YEPEZ
[2024-05-12] MEDS: MYCOPHENOLATE 250 MG PO SCH (20:41)
--- NOTE | 2024-05-13 02:04 | OP ---
Date of Procedure: 05/11/2024 Surgeon: Judah Augustin Procedures Performed: 1.Selective coronary angiogram. 2.PCI of the 3 BALL into LAD touchdown with Synergy 3.0 x 24 mm drug-eluting stent. Indication For Procedure: [id number] DC. Complications: None. Estimated Blood Loss: Less than 50 cc. Access: Left common femoral artery closed by an Angio-Seal. Sedation Time: 30 minutes with 1 of Versed and 25 of fentanyl. Description Of Procedure: After risks, benefits, and alternatives were explained to the patient, the patient agreed to proceed with procedure and signed informed consent. The patient was brought back to the entry level lab technician, prepped and draped in sterile fashion. Time-out was performed. Sedation was admini stered. Next, the left common femoral artery access was obtained using an ultrasound-guided micropun cture technique. A JL catheter was advanced over a J-wire to the aortic root. Selective angiogram o f the left system was done using that catheter, that was later exchanged for a JR4 catheter, that was used for selective angiogram of the right coronary systems and the SVG graft. Soon after that, cath eter was exchanged with a JR4 guide. Heparin was administered. ACT was therapeutic. A JR4 guide wa s used to engage the 3 BALL into LAD graft. A run-through wire was passed across the lesions, pre-di lated the lesion with an NC 2.5 mm balloon. Next, Synergy 3.0 x 24 mm drug-eluting stent was placed across the lesion that is postdilated with an NC 3.5 mm balloon. Final angiogram shows MARIA LUISA-3 flow. Catheter was removed over a J-wire. Sheath was removed. Angio-Seal applied. Hemostasis achieved. The patient was moved back to recovery in stable condition. Findings: 1.Left main normal. 2.LAD, proximal 80%, then mid 100% occluded. 3.Left circ, large, mild luminal irregularities, gives OM1 that got proximal 50% disease, then OM2 w ith mild luminal irregularities, and then OM3 with proximal 50% disease. 4.RCA, ostial to proximal 40% to 50% disease, then mild luminal regularities. Grafts: 1.Three BALL to LAD patent with 70% to 80% disease at touchdown, status post PCI as above. 2.SVG to diagonal patent. 3.SVG to RPDA is patent with [id number] proximal disease of 40%. Assessment: 1.Significant 3 BALL to LAD touchdown disease, status post PCI with Synergy 3.0 x 24 mm drug-eluting stent. 2.Mild to moderate proximal SVG to RPDA disease. Plan: Aspirin 81 mg daily for life. Brilinta 180 x1 was given in the entry level lab technician. Continue Brilinta 9 0 mg p.o. b.i.d. for 12 months. Continue aggressive medical treatment for CAD. RADHA/LOIS Voice ID: [id number] Report ID: [id number]
[2024-05-13 06:45] LABS: Albumin 2.7 g/dL (3.4-5.0); Anion Gap 8.8 mEq/L (5.0-15.0); Magnesium 1.7 mg/dL (1.6-2.4); Phosphorus 2.5 mg/dL (2.5-4.9); Potassium 3.8 mEq/L (3.5-5.1)
--- NOTE | 2024-05-13 09:33 | P.PN ---
Subjective Date of Service: 05/13/24 Chief Complaint: CP Subjective: No new changes, No C/O voiced, Tolerating diet, Ambulating, Improving Review of Systems 10-point ROS is otherwise unremarkable Physical Examination - Vital Signs Temperature: 97.2 F Blood Pressure: 145/69 Pulse: 86 Respirations: 18 Pulse Ox (%): 98 - Physical Exam General: Alert, In no apparent distress HEENT: Atraumatic, PERRLA, EOMI Neck: Supple, JVD not distended Respiratory: Clear to auscultation bilaterally, Normal air movement Cardiovascular: Regular rate/rhythm, Normal S1 S2 Gastrointestinal: Normal bowel sounds, No tenderness Musculoskeletal: No tenderness Integumentary: No rashes Neurological: Normal speech, Normal tone, Normal affect Lymphatics: No axilla or inguinal lymphadenopathy - Studies Medications List Reviewed: Yes Assessment And Plan - Current Problems (Diagnosis) (1) NSTEMI (non-ST elevated myocardial infarction) Current Visit: Yes Status: Acute Plan: Patient with PMH of CAD s/p CABG 2023, presented with worsening chest pain and mild troponin leak Coronary angiogram done and shown significant free BALL-LAD touch down disease s/p PCI with Synergy ROBIN ASA 81 mg daily Brilinta 90 mg po BID lipitor 40 mg daily
--- NOTE | 2024-05-13 10:16 | P.PN ---
Date of Service: 05/13/24 Subjective: Denies any chest pain or shortness of breath continues with neck stiffness/soreness ~same otherwise doing okay no issues overnight ROS: 10 point ROS as noted above, otherwise negative Physical Exam: GEN: Alert, oriented, NAD CV: Regular rate and rhythm, no edema Pulm: Nonlabored respirations on room air, clear bilaterally MSK: b/l neck /posterior neck - palpation of SCM/trapezius/platysma muscles soreness Neuro: Normal speech, normal affect Problem List: NSTEMI, now s/p PCI Acute on chronic diastolic CHF (HFpEF) Hx CAD s/p CABG (2023 @[facility]) Neck pain Hypertensive Urgency CKD3 Hx Kidney Transplant (2004) Hyperlipidemia Obstructive Sleep Apnea Hx BPH with LUTS Hx Gout NSTEMI, now s/p PCI Acute on chronic diastolic CHF (HFpEF) Hx CAD s/p CABG (2023 @[facility]) on admission, presents with 2 days of chest pain, neck soreness. Also reports feeling weak, generally unwell this past week Echo (05/12): 60-65% EF, severe concentric LVH, grade 1 diastolic dysfunction, normal filling pressures. Trend troponins; mildly elevated x3 Monitor on telemetry Cardiology consulted s/p LHC (05/11); noted significant BALL-LAD disease s/p PCI. Official report pending continue statin, brilinta, aspirin 81 mg continue IV lasix; decreased to 20 mg daily (05/13) Neck pain on admission, presents with some neck stiffness/soreness Unclear etiology. ?Likely Msk etiology Tylenol #3 added (05/13) PRN flexeril Family to bring in OTC diclofenac today f/u outpatient Hypertensive Urgency confirm home meds continue amlodipine, lisinopril, labetalol BP stable KATLYN on CKD3 Hx Kidney Transplant (2004) continue to monitor renal function Monitor and replete electrolytes as needed Nephrology consulted Creatinine 1.69 -> 2.5 (05/13) IV lasix decreased to 20 mg daily (05/13) Hyperlipidemia Obstructive Sleep Apnea Hx BPH with LUTS Hx Gout confirm home meds, restart as appropriate Code: Full Dispo: Home, ~1 day Time Spent Managing Pts Care (In Minutes): 55
[2024-05-13] MEDS: CODEINE 30MG/APAP 300MG TAB PO PRN (11:33)
[2024-05-13] MEDS: FUROSEMIDE 20 MG/ 2ML VIAL IV SCH (11:37)
--- NOTE | 2024-05-13 12:00 | EKG ---
Test Date: 2024-05-10 Test Time: 19:18:09 Mason Liner: MOISES MEASUREMENT RESULTS: Intervals: Rate: 91 WV: QRSD: 162 QT: 424 QTc: 521 [place]: P: 0 WV: QRS: -6 T: 33 INTERPRETIVE STATEMENTS: Atrial flutter with variable AV block Right bundle branch block T wave abnormality, consider lateral ischemia Abnormal ECG Compared to ECG 06/29/2022 14:23:18 Right bundle-branch block now present Sinus rhythm no longer present Right-axis deviation no longer present Incomplete right bundle-branch block no longer present T-wave abnormality still present Possible ischemia still present Electronically Signed On 05-13-24 11:58:52 BILINGUAL TEACHER by Judah Augustin
--- NOTE | 2024-05-13 20:03 | P.PN ---
Date of Service: 05/13/24 Vital Signs Temp Pulse Resp BP Pulse Ox 99.4 F 76 18 92/50 L 96 05/13/24 16:00 05/13/24 16:00 05/13/24 16:00 05/13/24 16:00 05/13/24 16:00 Medications Acetaminophen (Acetaminophen 325 Mg Tablet) 650 mg PO Q4HP PRN PRN Reason: Pain scale 2-4 (Mild) Last Admin: 05/11/24 00:27 Dose: 650 mg Acetaminophen/Codeine Phosphate (Codeine 30mg/Apap 300mg Tab) 1 tab PO Q6H PRN PRN Reason: Pain scale 5-7 (Moderate) Last Admin: 05/13/24 11:33 Dose: 1 tab Allopurinol (Allopurinol 100 Mg Tab) 100 mg PO DAILY [facility] Last Admin: 05/13/24 10:36 Dose: 100 mg Amlodipine Besylate (Amlodipine 10 Mg Tab) 10 mg PO DAILY [facility] Last Admin: 05/13/24 11:34 Dose: 10 mg Aspirin (Aspirin 81 Mg Chewable Tablet) 81 mg PO DAILY [facility] Last Admin: 05/13/24 10:36 Dose: 81 mg Atorvastatin Calcium (Atorvastatin 10 Mg Tab) 10 mg PO BEDTIME [facility] Last Admin: 05/12/24 20:40 Dose: 10 mg Cyclobenzaprine HCl (Cyclobenzaprine 10 Mg Tab) 10 mg PO TIDP PRN PRN Reason: MUSCLE SPASMS Last Admin: 05/12/24 17:07 Dose: 10 mg Ezetimibe (Ezetimibe 10 Mg Tab) 10 mg PO DAILY [facility] Last Admin: 05/13/24 10:36 Dose: 10 mg Furosemide (Furosemide 20 Mg/ 2ml Vial) 20 mg IV DAILY [facility] Last Admin: 05/13/24 11:37 Dose: 20 mg Home Med (Fluticasone Propionate [Flovent Hfa]) 12 gm IH BID [facility] Last Admin: 05/13/24 09:00 Dose: Not Given Home Med (Tacrolimus [Tacrolimus]) 4 mg PO DAILY AT SUPPER [facility] Last Admin: 05/13/24 17:20 Dose: 4 mg Home Med (Mycophenolate Mofetil [Mycophenolate Mofetil]) 500 mg PO BID [facility] Last Admin: 05/13/24 10:37 Dose: 500 mg Hydralazine HCl (Hydralazine Hcl 20 Mg/Ml Vial) 10 mg IV Q6HP PRN PRN Reason: SBP>160 [facility] Last Admin: 05/12/24 00:09 Dose: 10 mg Labetalol HCl (Labetalol Hcl 100 Mg Tab) 200 mg PO BID [facility] Last Admin: 05/13/24 10:35 Dose: 200 mg Lisinopril (Lisinopril 5 Mg Tab) 5 mg PO DAILY [facility] Last Admin: 05/13/24 11:33 Dose: 5 mg Minoxidil (Minoxidil 2.5 Mg Tab) 5 mg PO BID [facility] Last Admin: 05/13/24 09:00 Dose: Not Given Mirtazapine (Mirtazapine 15 Mg Tab) 7.5 mg PO BEDTIME [facility] Last Admin: 05/12/24 20:41 Dose: 7.5 mg Ondansetron HCl (Ondansetron 4 Mg/2 Ml Vial) 4 mg IV Q6HP PRN PRN Reason: NAUSEA / VOMITING Prednisone (Prednisone 5 Mg Tab) 5 mg PO DAILY [facility] Last Admin: 05/13/24 10:37 Dose: 5 mg Sucralfate (Sucralfate 1 Gm Tablet) 1 gm PO QID [facility] Last Admin: 05/13/24 17:20 Dose: 1 gm Tamsulosin HCl (Tamsulosin 0.4 Mg Sr Cap) 0.4 mg PO DAILY [facility] Last Admin: 05/13/24 10:36 Dose: 0.4 mg Ticagrelor (Ticagrelor 90 Mg Tablet) 90 mg PO BID [facility] Last Admin: 05/13/24 10:35 Dose: 90 mg Assessment/ Plan: Nephrology No dyspnea No chest pain Reports good urine output No acute events overnight Vitals, medications, blood work and imaging reviewed in the chart General: In no apparent distress, Oriented x3, Cooperative HEENT: Atraumatic Neck: Supple Respiratory: Clear to auscultation bilaterally Cardiovascular: No edema, Regular rate/rhythm Gastrointestinal: Soft and benign, Non-distended Musculoskeletal: No clubbing, No contractures Integumentary: No rashes, No cyanosis Neurological: Normal speech Blood work reviewed in the chart. Imagings Data: Procedure: Chest Single View HISTORY: Shortness of breath COMPARISON: May 10, 2024 FINDINGS: The lungs appear clear of acute infiltrate. No significant pleural effusion noted. The heart is moderately enlarged. Post surgical changes involve the chest. IMPRESSION: No acute abnormality is displayed. EXAMINATION: ONE VIEW CHEST XR CLINICAL INDICATION: Male, 69 years old.,CHEST PAIN TECHNIQUE: Frontal chest projection is submitted. Examination is limited by patient positioning and technique. COMPARISON: 07/01/2022 FINDINGS: Central interstitial prominence and perihilar fluffy opacities. Decreased inspiratory effort somewhat limits evaluation. No pneumothorax or sizable effusion. The heart is again enlarged. Sequelae of median sternotomy now noted. Mediastinal contours are otherwise unremarkable. IMPRESSION: Findings suggesting pulmonary edema, which may be of cardiogenic origin. Conclusions/Impression: Stage I KATLYN likely FÁTIMA CKD III -No NSAIDs -Continue Daily Lasix -Maintain adequate hydration Renal Transplant Status -Continue Prednisone -Continue Tacrolimus and Mycophenolate Hypokalemia -Replete prn Hypophosphatemia -Encourage nutrition HTN with CKD/ CHF -Continue Lisinopril and Amlodipine -Continue Minoxidil -Continue Labetolol -Holding parameters added Diastolic CHF, A/C -Continue Lasix Hypoalbuminemia -Encourage nutrition Anemia in chronic illness -Monitor H&H BPH with LUTS -Continue tamsulosin Case reviewed with Dr. Matamoros
[2024-05-13] MEDS: minoxidiL 2.5 MG TAB PO SCH (21:00)
[2024-05-14 01:13] VITALS: BMI 30.2
[2024-05-14 08:54] LABS: Anion Gap 6.6 mEq/L (5.0-15.0); Phosphorus 3.1 mg/dL (2.5-4.9); Potassium 3.6 mEq/L (3.5-5.1)
[2024-05-14] MEDS: lisinopriL 5 MG TAB PO SCH (09:14)
[2024-05-14] MEDS: POTASSIUM 25 MEQ EFFERV TAB PO ONE (10:11)
--- NOTE | 2024-05-14 12:49 | P.PN ---
Date of Service: 05/14/24 Subjective: [place] weak, lightheaded overnight ~2 am. BP low in 80s at the time. Manual recheck improved to 100s systolic Neck pain continues ~same reports dark urine last night and this morning. 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 yesterday morning ROS: 10 point ROS as noted above, otherwise negative Physical Exam: GEN: Alert, oriented, NAD CV: Regular rate and rhythm, no edema Pulm: Nonlabored respirations on room air, clear bilaterally MSK: b/l neck /posterior neck - palpation of SCM/trapezius/platysma muscles soreness Neuro: Normal speech, normal affect Problem List: NSTEMI, now s/p PCI Acute on chronic diastolic CHF (HFpEF) Hx CAD s/p CABG (2023 @[facility]) Neck pain Hypertensive Urgency CKD3 Hx Kidney Transplant (2004) Hyperlipidemia Obstructive Sleep Apnea Hx BPH with LUTS Hx Gout NSTEMI, now s/p PCI Acute on chronic diastolic CHF (HFpEF) Hx CAD s/p CABG (2023 @[facility]) on admission, presents with 2 days of chest pain, neck soreness. Also reports feeling weak, generally unwell this past week Echo (05/12): 60-65% EF, severe concentric LVH, grade 1 diastolic dysfunction, normal filling pressures. Trend troponins; mildly elevated x3 Monitor on telemetry Cardiology consulted s/p C (05/11); noted significant BALL-LAD 70% to 80% disease at touchdown s/p PCI. Also noted Mild to moderate proximal SVG to RPDA disease. continue statin, brilinta, aspirin 81 mg dc lasix Neck pain on admission, presents with some neck stiffness/soreness Unclear etiology. ?Likely Msk etiology Tylenol #3 added (05/13) PRN flexeril Family to bring in OTC diclofenac f/u outpatient Hypertensive Urgency, resolved transient hypotension (05/13 night) confirm home meds Initially BP in 200s, improved afte restarting home meds. [place] weak, lightheaded overnight ~2 am. [place] like close to passing out. BP low in 80s at the time. Manual recheck improved to 100s systolic stop lisinopril, hydralazine, lasix KATLYN on CKD3 Hx Kidney Transplant (2004) continue to monitor renal function Monitor and replete electrolytes as needed Nephrology consulted Creatinine 2.5 -> 3.74 (05/14) likely multifactorial, contrast induced, some pre-renal component IV lasix dc'd 05/14 Hyperlipidemia Obstructive Sleep Apnea Hx BPH with LUTS Hx Gout confirm home meds, restart as appropriate Code: Full Dispo: Home, ~1-2 days Time Spent Managing Pts Care (In Minutes): 55
[2024-05-14] MEDS: Ringers Lactate 1,000 ML IV SCH (18:21)
--- NOTE | 2024-05-14 22:15 | P.PN ---
Date of Service: 05/14/24 Vital Signs Temp Pulse Resp BP Pulse Ox 97.4 F 88 18 103/58 L 97 05/14/24 20:00 05/14/24 20:51 05/14/24 20:00 05/14/24 20:51 05/14/24 20:00 Medications Acetaminophen (Acetaminophen 325 Mg Tablet) 650 mg PO Q4HP PRN PRN Reason: Pain scale 2-4 (Mild) Last Admin: 05/11/24 00:27 Dose: 650 mg Acetaminophen/Codeine Phosphate (Codeine 30mg/Apap 300mg Tab) 1 tab PO Q6H PRN PRN Reason: Pain scale 5-7 (Moderate) Last Admin: 05/13/24 20:57 Dose: 1 tab Allopurinol (Allopurinol 100 Mg Tab) 100 mg PO DAILY [facility] Last Admin: 05/14/24 10:11 Dose: 100 mg Amlodipine Besylate (Amlodipine 10 Mg Tab) 10 mg PO DAILY [facility] Last Admin: 05/14/24 09:14 Dose: 10 mg Aspirin (Aspirin 81 Mg Chewable Tablet) 81 mg PO DAILY [facility] Last Admin: 05/14/24 09:13 Dose: 81 mg Atorvastatin Calcium (Atorvastatin 10 Mg Tab) 10 mg PO BEDTIME [facility] Last Admin: 05/14/24 20:53 Dose: 10 mg Cyclobenzaprine HCl (Cyclobenzaprine 10 Mg Tab) 10 mg PO TIDP PRN PRN Reason: MUSCLE SPASMS Last Admin: 05/12/24 17:07 Dose: 10 mg Ezetimibe (Ezetimibe 10 Mg Tab) 10 mg PO DAILY [facility] Last Admin: 05/14/24 09:15 Dose: 10 mg Home Med (Fluticasone Propionate [Flovent Hfa]) 12 gm IH BID [facility] Last Admin: 05/14/24 20:54 Dose: Not Given Home Med (Tacrolimus [Tacrolimus]) 4 mg PO DAILY AT SUPPER [facility] Last Admin: 05/14/24 16:22 Dose: 4 mg Home Med (Mycophenolate Mofetil [Mycophenolate Mofetil]) 500 mg PO BID [facility] Last Admin: 05/14/24 20:55 Dose: 500 mg Lactated Ringer's (Lactated Ringers) 1,000 mls @ 75 mls/hr IV .[id number] [facility] Stop: 05/15/24 07:19 Last Admin: 05/14/24 18:21 Dose: 1,000 mls Labetalol HCl (Labetalol Hcl 100 Mg Tab) 200 mg PO BID [facility] Last Admin: 05/14/24 20:51 Dose: Not Given Minoxidil (Minoxidil 2.5 Mg Tab) 5 mg PO BID [facility] Last Admin: 05/14/24 20:51 Dose: Not Given Mirtazapine (Mirtazapine 15 Mg Tab) 7.5 mg PO BEDTIME [facility] Last Admin: 05/14/24 20:53 Dose: 7.5 mg Ondansetron HCl (Ondansetron 4 Mg/2 Ml Vial) 4 mg IV Q6HP PRN PRN Reason: NAUSEA / VOMITING Prednisone (Prednisone 5 Mg Tab) 5 mg PO DAILY [facility] Last Admin: 05/14/24 09:13 Dose: 5 mg Sucralfate (Sucralfate 1 Gm Tablet) 1 gm PO QID [facility] Last Admin: 05/14/24 20:53 Dose: 1 gm Tamsulosin HCl (Tamsulosin 0.4 Mg Sr Cap) 0.4 mg PO DAILY [facility] Last Admin: 05/14/24 09:14 Dose: 0.4 mg Ticagrelor (Ticagrelor 90 Mg Tablet) 90 mg PO BID [facility] Last Admin: 05/14/24 20:54 Dose: 90 mg Assessment/ Plan: Nephrology No dyspnea No chest pain Reports hypotension overnight Weakness No acute events overnight Vitals, medications, blood work and imaging reviewed in the chart General: In no apparent distress, Oriented x3, Cooperative HEENT: Atraumatic Neck: Supple Respiratory: Clear to auscultation bilaterally Cardiovascular: No edema, Regular rate/rhythm Gastrointestinal: Soft and benign, Non-distended Musculoskeletal: No clubbing, No contractures Integumentary: No rashes, No cyanosis Neurological: Normal speech Blood work reviewed in the chart. Imagings Data: Procedure: Chest Single View HISTORY: Shortness of breath COMPARISON: May 10, 2024 FINDINGS: The lungs appear clear of acute infiltrate. No significant pleural effusion noted. The heart is moderately enlarged. Post surgical changes involve the chest. IMPRESSION: No acute abnormality is displayed. EXAMINATION: ONE VIEW CHEST XR CLINICAL INDICATION: Male, 69 years old.,CHEST PAIN TECHNIQUE: Frontal chest projection is submitted. Examination is limited by patient positioning and technique. COMPARISON: 07/01/2022 FINDINGS: Central interstitial prominence and perihilar fluffy opacities. Decreased inspiratory effort somewhat limits evaluation. No pneumothorax or sizable effusion. The heart is again enlarged. Sequelae of median sternotomy now noted. Mediastinal contours are otherwise unremarkable. IMPRESSION: Findings suggesting pulmonary edema, which may be of cardiogenic origin. Conclusions/Impression: Stage I KATLYN likely FÁTIMA complicated by hypotension and possible ATN CKD III -No NSAIDs -Discontinue Lasix -Maintain adequate hydration -LR X1 liter Renal Transplant Status -Continue Prednisone -Continue Tacrolimus and Mycophenolate Hypokalemia -Replete as ordered Hypophosphatemia -Encourage nutrition HTN with CKD/ CHF -Discontinue Lisinopril -Continue Amlodipine -Continue Minoxidil -Continue Labetolol -Holding parameters added Diastolic CHF, A/C -Continue Lasix Hypoalbuminemia -Encourage nutrition Anemia in chronic illness -Monitor H&H BPH with LUTS -Continue tamsulosin Case reviewed with Dr. Matamoros
[2024-05-15 06:43] LABS: Albumin 2.7 g/dL (3.4-5.0); Anion Gap 12.8 mEq/L (5.0-15.0); Magnesium 1.9 mg/dL (1.6-2.4); Phosphorus 2.8 mg/dL (2.5-4.9); Potassium 3.8 mEq/L (3.5-5.1)
[2024-05-15] MEDS: POTASSIUM CL SA 10 MEQ TAB PO ONE (08:19)
[2024-05-15] MEDS ORDERED: FUROSEMIDE 20 MG/ 2ML VIAL IV SCH (09:00)
--- NOTE | 2024-05-15 10:01 | P.PN ---
Date of Service: 05/15/24 Subjective: feeling overall improvement today neck pain improving, with increased ROM this morning. [place] significant relief after diclofenac cream no chest pain ROS: 10 point ROS as noted above, otherwise negative Physical Exam: GEN: Alert, oriented, NAD CV: Regular rate and rhythm, no edema Pulm: Nonlabored respirations on room air, clear bilaterally MSK: b/l neck /posterior neck improving; +increased ROM. Neuro: Normal speech, normal affect Problem List: NSTEMI, now s/p PCI Acute on chronic diastolic CHF (HFpEF) Hx CAD s/p CABG (2023 @[facility]) Neck pain Hypertensive Urgency CKD3 Hx Kidney Transplant (2004) Hyperlipidemia Obstructive Sleep Apnea Hx BPH with LUTS Hx Gout NSTEMI, now s/p PCI Acute on chronic diastolic CHF (HFpEF) Hx CAD s/p CABG (2023 @[facility]) on admission, presents with 2 days of chest pain, neck soreness. Also reports feeling weak, generally unwell this past week Echo (05/12): 60-65% EF, severe concentric LVH, grade 1 diastolic dysfunction, normal filling pressures. Trend troponins; mildly elevated x3 Monitor on telemetry Cardiology consulted s/p C (05/11); noted significant BALL-LAD 70% to 80% disease at touchdown s/p PCI. Also noted Mild to moderate proximal SVG to RPDA disease. continue statin, brilinta, aspirin 81 mg dc lasix 05/14 Neck pain on admission, presents with some neck stiffness/soreness Unclear etiology. ?Likely Msk etiology Tylenol #3 added (05/13) PRN flexeril neck pain improving, with increased ROM this morning. [place] significant relief after diclofenac cream f/u outpatient Hypertensive Urgency, resolved transient hypotension (05/13 night) confirm home meds Initially BP in 200s, improved afte restarting home meds. [place] weak, lightheaded overnight ~2 am. [place] like close to passing out. BP low in 80s at the time. Manual recheck improved to 100s systolic lisinopril, hydralazine, lasix dc'd 05/14 KATLYN on CKD3 Hx Kidney Transplant (2004) continue to monitor renal function Monitor and replete electrolytes as needed Nephrology consulted likely multifactorial, contrast induced, some pre-renal component IV lasix dc'd 05/14 creatinine improving Hyperlipidemia Obstructive Sleep Apnea Hx BPH with LUTS Hx Gout confirm home meds, restart as appropriate Code: Full Dispo: Home, ~1 day Pending nephro recs, renal function improves Time Spent Managing Pts Care (In Minutes): 55
--- NOTE | 2024-05-15 13:32 | PN ---
The patient is seen in room 414 at [facility] in [place]. Subjective: The patient is alert, awake, able to answer questions. Denies any headache, nausea, vom iting. He says he feels great today. He was feeling a little bit dizzy yesterday, but now that is r esolved. Blood pressure is improved. Objective: Vital Signs: Last blood pressure is a little bit on the higher side at 161/84, before th at 135/72, before that 119/64, his pulse is reasonable about 80-90 on my exam, it is running in the 8 0 range and regular. Respirations are comfortable about 14 and O2 sats are 99% on room air. Lungs: Clear. Abdomen: Soft. Extremities: Revealed no edema. Heart: Sounds are regular. Laboratory Data: Revealed WBC count of 8.0, hemoglobin 12.4, hematocrit 38.1, platelet counts 155 fr om May 12. His chemistries from May 15 shows sodium 135, potassium 3.8, chloride is 105, bic arb is 21. BUN and creatinine is improved to 50 over 2.64 from 49 over 3.74 on May 14. His crea tinine was 1.5 on May 11, started going up on May 12 to 1.69, then on May 13 was 2.5 an d now it after peaking at 3.74 yesterday is coming down and was today at 2.64. The patient has got I V fluids. His blood pressure medications were initially held. He is now getting his blood pressure medications resumed, but still stays off diuretics. Assessment And Plan: Acute kidney injury in the setting of stent placement with dye exposure with hy potension. The patient is now somewhat improving. Volume status is improved. Blood pressure is imp roving. If blood pressure continues to stay high, patient's p.o. intake stays good and creatinine co ntinues to back down to his normal range below 2. May need to resume his Lasix . The patient may be able to discharge home tomorrow. He clinically looks stable. could be monitored outpatient and he will need followup with Dr. Marc. The patient has already been ad vised, most likely will need his Lasix resumed and blood checked with BMP within the next week or so with followup with Dr. Marc if discharged tomorrow. Continue to encourage p.o. intake, fluid inta ke, and keep a balance diet. Avoid NSAIDs, salt restriction and avoid any further exposure to dye un less absolutely needed. /LOIS Voice ID: [id number] Report ID: [id number]
[2024-05-15 22:29] LABS: Absolute Eosinophils 0.1 K/uL (0-0.5); Absolute Lymphocytes (CBC) 0.5 K/uL (0.7-4.9); Absolute Monocytes 0.6 K/uL (0.1-1.3); Absolute Neutrophil 3.3 K/uL (1.8-8.0); Basophils % 0.8 % (0-1.3); Eosinophils % 2.8 % (0-4.4); Hemoglobin 10.6 g/dL (13.6-17.9); Lymphocytes % 9.9 % (15.3-44.8); MCH 29.1 pg (27.0-35.0); MCV 88.1 fL (80-100); Monocytes % 14.2 % (3.3-12.3); Neutrophils % 72.3 % (41.7-73.7); Nucleated Red Blood Cells % 0.1 % (0-0); Platelets 200 thou/uL (152-406); RBC Red Blood Cell Count 3.63 M/uL (4.33-5.43); Red Cell Distribution Width 15.1 % (12.1-15.2)
[2024-05-15 22:44] LABS: ALT/SGPT < 14 U/L (16-61); AST/SGOT 24 U/L (15-37); Albumin 2.7 g/dL (3.4-5.0); Albumin/Globulin Ratio 0.6 (1.1-1.8); Alkaline Phosphatase 80 U/L (45-117); Anion Gap 12.6 mEq/L (5.0-15.0); BUN Blood Urea Nitrogen 44 mg/dL (7-18); Bicarbonate 21 mEq/L (21-32); Bilirubin Total 0.4 mg/dL (0.2-1.0); Globulin 4.9 g/dL (2.3-3.5); Glomerular Filtration Rate 32 ml/min (=/>90); Glucose Level 115 mg/dL (74-106); Potassium 4.6 mEq/L (3.5-5.1); Protein, Total 7.6 g/dL (6.4-8.2); Sodium Level 137 mEq/L (136-145)
[2024-05-15 23:08] LABS: Phosphorus 2.7 mg/dL (2.5-4.9); Thyroid Stimulating Hormone 2.76 uIU/mL (0.358-3.740)
[2024-05-15 23:09] LABS: Magnesium 2.1 mg/dL (1.6-2.4)
[2024-05-16 06:28] LABS: Anion Gap 10.8 mEq/L (5.0-15.0); Magnesium 2.1 mg/dL (1.6-2.4); Potassium 3.8 mEq/L (3.5-5.1)
[2024-05-16] MEDS: POTASSIUM CL SA 10 MEQ TAB PO ONE (08:42)
--- NOTE | 2024-05-16 08:57 | P.PN ---
Date of Service: 05/16/24 Subjective: Heart rate down to 31 for ~10 sec overnight. felt short of breath, tachypneic at the time reports never being diagnosed with sleep apnea but states multiple doctors have suspected him to have ANG otherwise doing okay this morning denies chest pain ROS: 10 point ROS as noted above, otherwise negative Physical Exam: GEN: Alert, oriented, NAD CV: Regular rate and rhythm, no edema Pulm: Nonlabored respirations on room air, clear bilaterally MSK: bmild Neuro: Normal speech, normal affect Problem List: NSTEMI, now s/p PCI Acute on chronic diastolic CHF (HFpEF) Hx CAD s/p CABG (2023 @[facility]) AV dissociation Bradycardia Hypertensive Urgency, resolved transient hypotension (05/13 night) KATLYN on CKD3 Hx Kidney Transplant (2004) Neck pain Hyperlipidemia Obstructive Sleep Apnea Hx BPH with LUTS Hx Gout NSTEMI, now s/p PCI Acute on chronic diastolic CHF (HFpEF) Hx CAD s/p CABG (2023 @[facility]) AV dissociation Bradycardia on admission, presents with 2 days of chest pain, neck soreness. Also reports feeling weak, generally unwell this past week Echo (05/12): 60-65% EF, severe concentric LVH, grade 1 diastolic dysfunction, normal filling pressures. s/p LHC (05/11); noted significant BALL-LAD 70% to 80% disease at touchdown s/p PCI. Also noted Mild to moderate proximal SVG to RPDA disease. continue statin, brilinta, aspirin 81 mg dc lasix 05/14 due to KATLYN, low BP Patient had episode of AV dissociation with Heart rate down to 31 for ~10 sec overnight Cardiology is following Monitor on telemetry check EKG Hypertensive Urgency, resolved transient hypotension (05/13 night) Initially BP in 200s, improved afte restarting home meds. Had transient episode of hypotension 05/13 night. BP low in 80s at the time. Manual recheck improved to 100s systolic lisinopril, hydralazine, lasix dc'd 05/14 continue home amlodipine, labetalol, mixonidil KATLYN on CKD3 Hx Kidney Transplant (2004) continue to monitor renal function Monitor and replete electrolytes as needed Nephrology consulted likely multifactorial, contrast induced, some pre-renal component IV lasix dc'd 05/14 creatinine improving Neck pain on admission, presents with some neck stiffness/soreness Unclear etiology. Likely Msk etiology pain improving, Relieved with diclofenac cream dc flexeril, tylenol #3 Hyperlipidemia Obstructive Sleep Apnea Hx BPH with LUTS Hx Gout confirm home meds, restart as appropriate Code: Full Dispo: Home, ~1 day Pending cardio recs Time Spent Managing Pts Care (In Minutes): 55
[2024-05-16] MEDS: LABETALOL HCL 100 MG TAB PO ONE (14:51)
[2024-05-17 06:30] LABS: Magnesium 2.1 mg/dL (1.6-2.4)
--- NOTE | 2024-05-17 07:19 | P.PN ---
Date of Service: 05/17/24 Subjective: 3 episodes of AV dissociation overnight episodes ranging from 6-9 sec in length HR dropping to 30s at the time denies chest pain or shortness of breath neck soreness improving ROS: 10 point ROS as noted above, otherwise negative Physical Exam: GEN: Alert, oriented, NAD CV: Regular rate and rhythm, no edema Pulm: Non-labored respirations on room air, clear bilaterally MSK: good ROM of neck, mild soreness Neuro: Normal speech, normal affect Problem List: NSTEMI, now s/p PCI Acute on chronic diastolic CHF (HFpEF) Hx CAD s/p CABG (2023 @[facility]) AV dissociation Bradycardia Hypertensive Urgency, resolved transient hypotension (05/13 night) KATLYN on CKD3 Hx Kidney Transplant (2004) Neck pain Hyperlipidemia Obstructive Sleep Apnea Hx BPH with LUTS Hx Gout NSTEMI, now s/p PCI Acute on chronic diastolic CHF (HFpEF) Hx CAD s/p CABG (2023 @[facility]) AV dissociation Bradycardia transient aflutter, new on admission, presents with 2 days of chest pain, neck soreness. Also reports feeling weak, generally unwell this past week Echo (05/12): 60-65% EF, severe concentric LVH, grade 1 diastolic dysfunction, normal filling pressures. s/p LHC (05/11); noted significant BALL-LAD 70% to 80% disease at touchdown s/p PCI. Also noted Mild to moderate proximal SVG to RPDA disease. continue statin, brilinta, aspirin 81 mg dc'd lasix 05/14 due to KATLYN, low BP 05/15-05/16 o/n had episode of av dissociation briefly, and his labetalol was held 05/16 had aflutter, discussed with cardio, restarted his labetalol and he later converted to sinus rhythm in evening, his labetalol was held again, per chart was held due to low BP 05/16-05/17: 3 episodes of AV dissociation overnight. episodes ranging from 6-9 sec in length Cardiology updated this morning, awaiting further recs Monitor on telemetry Hypertensive Urgency, resolved transient hypotension (05/13 night) Initially BP in 200s, improved afte restarting home meds. Had transient episode of hypotension 05/13 night. BP low in 80s at the time. Manual recheck improved to 100s systolic lisinopril, hydralazine, lasix dc'd 05/14 continue home amlodipine, labetalol, mixonidil KATLYN on CKD3 Hx Kidney Transplant (2004) continue to monitor renal function Monitor and replete electrolytes as needed Nephrology consulted likely multifactorial, contrast induced, some pre-renal component IV lasix dc'd 05/14 creatinine improving Neck pain on admission, presents with some neck stiffness/soreness Unclear etiology. Likely Msk etiology pain improving, Relieved with diclofenac cream dc flexeril, tylenol #3 Hyperlipidemia Obstructive Sleep Apnea Hx BPH with LUTS Hx Gout confirm home meds, restart as appropriate Code: Full Dispo: Home, ~1 day Pending cardio recs Time Spent Managing Pts Care (In Minutes): 55
--- NOTE | 2024-05-17 12:21 | P.PN ---
Subjective Date of Service: 05/17/24 Chief Complaint: CP Subjective: No new changes, No C/O voiced, Tolerating diet, Ambulating, Improving Review of Systems 10-point ROS is otherwise unremarkable Physical Examination - Vital Signs Temperature: 98.2 F Blood Pressure: 154/89 Pulse: 105 Respirations: 17 Pulse Ox (%): 98 - Physical Exam General: Alert, In no apparent distress HEENT: Atraumatic, PERRLA, EOMI Neck: Supple, JVD not distended Respiratory: Clear to auscultation bilaterally, Normal air movement Cardiovascular: Regular rate/rhythm, Normal S1 S2 Gastrointestinal: Normal bowel sounds, No tenderness Musculoskeletal: No tenderness Integumentary: No rashes Neurological: Normal speech, Normal tone, Normal affect Lymphatics: No axilla or inguinal lymphadenopathy - Studies Medications List Reviewed: Yes Assessment And Plan - Current Problems (Diagnosis) (1) NSTEMI (non-ST elevated myocardial infarction) Current Visit: Yes Status: Acute Plan: Patient with PMH of CAD s/p CABG 2023, presented with worsening chest pain and mild troponin leak Coronary angiogram done and shown significant free BALL-LAD touch down disease s/p PCI with Synergy ROBIN ASA 81 mg daily Brilinta 90 mg po BID lipitor 40 mg daily (2) Heart block AV second degree Current Visit: Yes Status: Acute Plan: episodes are happening while patient is sleeping, most likely secondary to sleep apnea, recommend outpatient sleep study and event monitor with 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
--- NOTE | 2024-05-17 16:50 | P.PN ---
Nephrology Delayed entry note, pt seen earlier this AM, no acute complaints then but had an episode of flutter yesterday per reports, has remained tachy in the low 100s, no orthostatic symptoms or other reported Vitals, medications, blood work and imaging reviewed in the chart General: In no apparent distress, non tachypnec HEENT: Atraumatic, not needing O2 Neck: Supple Respiratory: Clear to auscultation bilaterally and without rhonchi Cardiovascular: Tachy, mostly regular Gastrointestinal: Soft and benign, Non-distended Musculoskeletal: No contractures, shins non tender, mild distal edema Integumentary: No rashes Neurological: Normal speech, awake, alert Conclusions/Impression: Stage I KATLYN multifactorial on underlying transplant CKD III unspecified -Cr level downward trending, cont to monitor closely Renal Transplant Status, history of [place] b/l nephrectomies -Continue home IS regimen, clarify tacrolimus dose, monitor levels as OP HTN with CKD/ CHF -With the tachycardia, would recommend coming off Minoxidil and can use a thiazide diuretic as pt may benefit from diuretic agent even though TTE did report elevated filling pressures (LVEDP not reported on LHC). If renal function remains stable, would restart lower dose ACEi Atherosclerosis of [place] coronary arteries, chronic ischemic heart disease -S/p PCI/ROBIN, management per Cardiology, intensive risk factor modification
[2024-05-18 06:50] LABS: Hematocrit 30.2 % (39.6-49.0); Hemoglobin 10.3 g/dL (13.6-17.9); MCH 29.6 pg (27.0-35.0); MCV 86.9 fL (80-100); MPV 8.9 fL (7.6-11.3); Platelets 207 thou/uL (152-406); RBC Red Blood Cell Count 3.47 M/uL (4.33-5.43)
[2024-05-18 07:28] LABS: Anion Gap 9.2 mEq/L (5.0-15.0); Magnesium 2.1 mg/dL (1.6-2.4); Potassium 4.2 mEq/L (3.5-5.1)
[2024-05-18] MEDS: lisinopriL 10 MG TAB PO SCH (08:51)
--- NOTE | 2024-05-18 18:03 | P.PN ---
Subjective Date of Service: 05/18/24 Chief Complaint: CP Patient denies any new complain. No issues overnight. Physical Examination - Vital Signs Temperature: 98.1 F Blood Pressure: 107/65 Pulse: 85 Respirations: 16 Pulse Ox (%): 97 - Studies Medications List Reviewed: Yes Assessment And Plan - Plan ROS: 10 point ROS as noted above, otherwise negative Physical Exam: GEN: Alert, oriented, NAD CV: Regular rate and rhythm, no edema Pulm: Non-labored respirations on room air, clear to auscultation bilaterally MSK: good ROM of neck, Neuro: Normal speech, normal affect, no focal motor deficit. Skin: No rashes. No erythema. Problem List: NSTEMI, now s/p PCI Acute on chronic diastolic CHF (HFpEF) Hx CAD s/p CABG (2023 @[facility]) AV dissociation Bradycardia Hypertensive Urgency, resolved transient hypotension (05/13 night) KATLYN on CKD3 Hx Kidney Transplant (2004) Neck pain Hyperlipidemia Obstructive Sleep Apnea Hx BPH with LUTS Hx Gout Plan: NSTEMI, now s/p PCI Acute on chronic diastolic CHF (HFpEF) Hx CAD s/p CABG (2023 @[facility]) AV dissociation Bradycardia transient aflutter, new Echo (05/12): 60-65% EF, severe concentric LVH, grade 1 diastolic dysfunction, normal filling pressures. s/p LHC (05/11); noted significant BALL-LAD 70% to 80% disease at touchdown s/p PCI. Also noted Mild to moderate proximal SVG to RPDA disease. continue statin, brilinta, aspirin 81 mg Lasix discontinued 05/14 due to KATLYN and low BP 05/15-05/16 o/n had episode of av dissociation briefly, and his labetalol was held 05/16 had aflutter, discussed with cardio, restarted his labetalol and he later converted to sinus rhythm in evening, his labetalol was held again, per chart was held due to low BP 05/16-05/17: 3 episodes of AV dissociation overnight. episodes ranging from 6-9 sec in length Continue telemetry Cardiology to follow. Hypertensive Urgency, resolved transient hypotension (05/13 night) Initially BP in 200s, improved afte restarting home meds. Had transient episode of hypotension 05/13 night. lisinopril, hydralazine, lasix dc'd 05/14 Blood pressure has been stable today. continue home amlodipine, labetalol. Minoxidil discontinued. KATLYN on CKD3 Hx Kidney Transplant (2004) Nephrology is following. Serum creatinine overall improved. KATLYN likely multifactorial, contrast induced, some pre-renal component continue to monitor renal function Monitor and replete electrolytes as needed IV lasix dc'd 05/14 Continue transplant medications. Neck pain Analgesics as needed. Hyperlipidemia Obstructive Sleep Apnea Hx BPH with LUTS Hx Gout Continue home medications. DVT prophylaxis: Heparin SQ Code: Full Dispo: Home.
[2024-05-19] MEDS: HEPARIN 5000 UNIT/ML 1 ML VIAL SQ SCH (00:49)
[2024-05-19 06:50] LABS: Absolute Basophils 0.1 K/uL (0-0.5); Absolute Eosinophils 0.2 K/uL (0-0.5); Absolute Lymphocytes (CBC) 0.7 K/uL (0.7-4.9); Absolute Monocytes 0.7 K/uL (0.1-1.3); Absolute Neutrophil 3.3 K/uL (1.8-8.0); Basophils % 2.4 % (0-1.3); Eosinophils % 4.6 % (0-4.4); Hematocrit 31.4 % (39.6-49.0); Hemoglobin 10.5 g/dL (13.6-17.9); Lymphocytes % 13.7 % (15.3-44.8); MCH 29.1 pg (27.0-35.0); MCHC 33.6 g/dL (32.0-36.0); MCV 86.7 fL (80-100); Monocytes % 13.4 % (3.3-12.3); Neutrophils % 65.9 % (41.7-73.7); Platelets 234 thou/uL (152-406); RBC Red Blood Cell Count 3.62 M/uL (4.33-5.43); Red Cell Distribution Width 14.8 % (12.1-15.2)
[2024-05-19 07:02] LABS: Anion Gap 8.3 mEq/L (5.0-15.0)
[2024-05-19 07:04] LABS: Potassium 4.3 mEq/L (3.5-5.1)
--- NOTE | 2024-05-19 16:19 | P.DS ---
Admission Date: 05/10/24 Discharge Date: 05/19/24 Disposition: ROUTINE DISCHARGE Discharge Condition: FAIR Reason for Admission: CP Hospital Course: Problem List: NSTEMI, now s/p PCI Acute on chronic diastolic CHF (HFpEF) Hx CAD s/p CABG (2023 @[facility]) AV dissociation Bradycardia Hypertensive Urgency, resolved transient hypotension (05/13 night) KATLYN on CKD3 Hx Kidney Transplant (2004) Neck pain Hyperlipidemia Obstructive Sleep Apnea Hx BPH with LUTS Hx Gout Patient presented with chest pain, neck soreness, weakness for ~2 days. Troponin's were noted to be mildly elevated but trended flat. (peak 140). Chest xray consistent with mild pulmonary edema. Patient was evaluated by Dr. Augustin (cardio) and underwent left heart catheterization on 05/11 which noted significant 3 BALL to LAD touchdown disease s/p PCI. (Full report below) Patient was monitored post-operatively, feeling better, chest pain improved, breathing more comfortably on room air, and was deemed stable for discharge. Echocardiogram (05/12) noted 60-65% EF, severe concentric LVH, grade 1 diastolic dysfunction, normal filling pressures. Patient experienced few seconds episode of AV dissociation/AV block overnight which cardiology attributed to possible obstructive sleep apnea. Advised patient to follow up with his cardiology in next 1-2 weeks for further management. During his hospitalization, patient was noted to have an KATLYN with worsening renal function post LHC. Suspect multifactorial etiology, secondary to pre-renal / contrast induced. Renal function slowly improved with time. Advised to repeat blood work in ~1 week to monitor renal function. Follow up with Nephrology in 1-2 weeks for further management. Vital Signs/Physical Exam: Temp Pulse Resp BP Pulse Ox 98.2 F 94 H 15 140/74 99 05/19/24 12:00 05/19/24 12:00 05/19/24 12:00 05/19/24 12:05/19/24 12:00 General: Alert, In no apparent distress, Oriented x3 HEENT: Mucous membr. moist/pink, Sclerae nonicteric Neck: Supple, JVD not distended Respiratory: Clear to auscultation bilaterally, Normal air movement Cardiovascular: No edema, Regular rate/rhythm, Normal S1 S2 Gastrointestinal: Normal bowel sounds, Soft and benign, Non-distended, No tender ness Musculoskeletal: No swelling, No tenderness Integumentary: No rashes, No cyanosis Neurological: Normal strength at 5/5 x4 extr, Cranial nerves 3-12 intact Lymphatics: No axilla or inguinal lymphadenopathy Laboratory Data at Discharge: WBC 5.10 thou/uL (4.3-10.9) 05/19/24 05:57 Hgb 10.5 g/dL (13.6-17.9) L 05/19/24 05:57 Hct 31.4 % (39.6-49.0) L 05/19/24 05:57 Plt Count 234 thou/uL (152-406) 05/19/24 05:57 PT 11.6 SECONDS (9.4-12.5) 05/10/24 19:16 INR 1.11 05/10/24 19:16 Sodium 140 mEq/L (136-145) 05/19/24 05:57 Potassium 4.3 mEq/L (3.5-5.1) 05/19/24 05:57 BUN 26 mg/dL (7-18) H 05/19/24 05:57 Creatinine 1.91 mg/dL (0.70-1.30) H 05/19/24 05:57 Glucose 93 mg/dL (74-106) 05/19/24 05:57 Phosphorus 2.7 mg/dL (2.5-4.9) 05/15/24 20:25 Magnesium 2.1 mg/dL (1.6-2.4) 05/18/24 05:59 Total Bilirubin 0.4 mg/dL (0.2-1.0) 05/15/24 20:25 AST 24 U/L (15-37) 05/15/24 20:25 ALT < 14 U/L (16-61) L 05/15/24 20:25 Alkaline Phosphatase 80 U/L (45-117) 05/15/24 20:25 Home Medications: Ezetimibe [Zetia*] 10 mg PO DAILY 06/29/22 Labetalol HCl [Trandate] 200 mg PO BID 06/29/22 Pravastatin [Pravachol*] 40 mg PO BEDTIME 06/29/22 Tacrolimus 20 mg PO Q12H 06/29/22 Tamsulosin [Flomax*] 0.8 mg PO DAILY 06/29/22 allopurinoL [Allopurinol] 100 mg PO DAILY 06/29/22 lisinopriL [Lisinopril] 10 mg PO DAILY 06/29/22 mycophenolate mofetiL [Mycophenolate Mofetil] 500 mg PO BID 06/29/22 predniSONE [Prednisone*] 5 mg PO DAILY 06/29/22 Furosemide 20 mg PO BID 05/11/24 Mirtazapine 7.5 mg PO BEDTIME 05/11/24 Sucralfate [Carafate*] 1 gm PO QID 05/11/24 Amlodipine [Norvasc*] 10 mg PO DAILY #30 tab 05/19/24 Aspirin Chewable [Aspirin Chewable*] 81 mg PO DAILY #30 tab.chew 05/19/24 Fluticasone Propionate [Flovent Hfa] 12 gm IH BID #0 05/19/24 Ticagrelor [Brilinta*] 90 mg PO BID #60 tab 05/19/24 New Medications: Aspirin Chewable [Aspirin Chewable*] 81 mg PO DAILY #30 tab.chew Ticagrelor [Brilinta*] 90 mg PO BID #60 tab Fluticasone Propionate [Flovent Hfa] 12 gm IH BID #0 Amlodipine [Norvasc*] 10 mg PO DAILY #30 tab Physician Discharge Instructions: Physician discharge instructions: Patient presented with chest pain, neck soreness, weakness for ~2 days. Troponin's were noted to be mildly elevated but trended flat. (peak 140). Chest xray consistent with mild pulmonary edema. Patient was evaluated by Dr. Augustin (cardio) and underwent left heart catheterization on 05/11 which noted significant 3 BALL to LAD touchdown disease s/p PCI. (Full report below) Patient was monitored post-operatively, feeling better, chest pain improved, breathing more comfortably on room air, and was deemed stable for discharge. Echocardiogram (05/12) noted 60-65% EF, severe concentric LVH, grade 1 diastolic dysfunction, normal filling pressures. Patient experienced few seconds episode of AV dissociation/AV block overnight which cardiology attributed to possible obstructive sleep apnea. Advised patient to follow up with cardiology in next 2-4 weeks for further management. During his hospitalization, patient was noted to have an KATLYN with worsening renal function post LHC. Suspect multifactorial etiology, secondary to pre-renal / contrast induced. Renal function slowly improved with time. Advised to repeat blood work in ~1 week to monitor renal function. Follow up with Nephrology in 1-2 weeks for further management. In regards to his neck soreness/stiffness, he felt significant relief with over the counter diclofenac cream. Medications: Brilinta 90 mg twice daily Aspirin 81 mg daily Atorvastatin 40 mg daily continue other home medications as previously prescribed Follow up: PCP 3-5 days You need a sleep study to evaluate for obstructive sleep apnea. 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 Please call to schedule / confirm appointments Left Heart Catheterization Op-Report Findings: 1. Left main normal. 2. LAD, proximal 80%, then mid 100% occluded. 3. Left circ, large, mild luminal irregularities, gives OM1 that got proximal 50% disease, then OM2 with mild luminal irregularities, and then OM3 with proximal 50% disease. 4. RCA, ostial to proximal 40% to 50% disease, then mild luminal regularities. Grafts: 1. Three BALL to LAD patent with 70% to 80% disease at touchdown, status post PCI as above. 2. SVG to diagonal patent. 3. SVG to RPDA is patent with vokm-ni-acphctiv proximal disease of 40%. Diet: AHA Activity: Ad caryl Followup: Judah Augustin MD [ACTIVE - CAN ADMIT] - If your Symptoms Worsen (Or [employer] in 2- 4 weeks) Phoenix Broderick MD [Primary Care Provider] - Time spent managing pt's care (in minutes): 41
[2024-05-19 16:29] VITALS: BP 133/74; TEMP 98
[2024-05-19 18:06] VITALS: O2SAT 99
--- NOTE | 2024-05-19 21:25 | P.PN ---
Date of Service: 05/19/24 Vital Signs Temp Pulse Resp BP Pulse Ox 98.0 F 92 H 16 133/74 100 05/19/24 16:00 05/19/24 16:00 05/19/24 16:00 05/19/24 16:00 05/19/24 16:00 Assessment/ Plan: Nephrology No dyspnea No chest pain Feeling better No acute events overnight Vitals, medications, blood work and imaging reviewed in the chart General: In no apparent distress, Oriented x3, Cooperative HEENT: Atraumatic Neck: Supple Respiratory: Clear to auscultation bilaterally Cardiovascular: No edema, Regular rate/rhythm Gastrointestinal: Soft and benign, Non-distended Musculoskeletal: No clubbing, No contractures Integumentary: No rashes, No cyanosis Neurological: Normal speech Blood work reviewed in the chart. Imagings Data: Procedure: Chest Single View HISTORY: Shortness of breath COMPARISON: May 10, 2024 FINDINGS: The lungs appear clear of acute infiltrate. No significant pleural effusion noted. The heart is moderately enlarged. Post surgical changes involve the chest. IMPRESSION: No acute abnormality is displayed. EXAMINATION: ONE VIEW CHEST XR CLINICAL INDICATION: Male, 69 years old.,CHEST PAIN TECHNIQUE: Frontal chest projection is submitted. Examination is limited by patient positioning and technique. COMPARISON: 07/01/2022 FINDINGS: Central interstitial prominence and perihilar fluffy opacities. Decreased inspiratory effort somewhat limits evaluation. No pneumothorax or sizable effusion. The heart is again enlarged. Sequelae of median sternotomy now noted. Mediastinal contours are otherwise unremarkable. IMPRESSION: Findings suggesting pulmonary edema, which may be of cardiogenic origin. Conclusions/Impression: Stage I KATLYN likely FÁTIMA complicated by hypotension and possible ATN CKD III -No NSAIDs -Maintain adequate hydration Renal Transplant Status -Continue Prednisone -Continue Tacrolimus and Mycophenolate Hypokalemia -Replete as ordered Hypophosphatemia -Encourage nutrition HTN with CKD/ CHF -Continue Amlodipine -Continue Labetolol Diastolic CHF, A/C -Restart home lasix Hypoalbuminemia -Encourage nutrition Anemia in chronic illness -Monitor H&H BPH with LUTS -Continue tamsulosin Case reviewed with Dr. Wallace
== END 2024-05-19 17:55 | disposition home or self-care (01) | DRG 321 ==
LOC: ER 18:28 → ERHOLD 20:14 → 4TH 21:32
PROVIDERS: ADMIT Family Medicine; ATTEND Internal Medicine
PROC: 027034Z Dilation of Coronary Artery, One Artery with Drug-eluting Intraluminal Device, Percutaneous Approach (ICD-10-PCS; principal; 2024-05-11)
PROC: 4A023N7 Measurement of Cardiac Sampling and Pressure, Left Heart, Percutaneous Approach (ICD-10-PCS; 2024-05-11)
PROC: B2111ZZ Fluoroscopy of Multiple Coronary Arteries using Low Osmolar Contrast (ICD-10-PCS; 2024-05-11)
DX: I13.0 Hypertensive heart and chronic kidney disease with heart failure and stage 1 through stage 4 chronic kidney disease, or unspecified chronic kidney disease (principal); I21.4 Non-ST elevation (NSTEMI) myocardial infarction; I50.33 Acute on chronic diastolic (congestive) heart failure; Z94.0 Kidney transplant status; I16.1 Hypertensive emergency; N17.9 Acute kidney failure, unspecified; I48.92 Unspecified atrial flutter; N18.30 Chronic kidney disease, stage 3 unspecified; D63.1 Anemia in chronic kidney disease; E78.5 Hyperlipidemia, unspecified; G47.00 Insomnia, unspecified; E83.39 Other disorders of phosphorus metabolism; I44.1 Atrioventricular block, second degree; N40.1 Benign prostatic hyperplasia with lower urinary tract symptoms; M54.2 Cervicalgia; I95.9 Hypotension, unspecified; E87.6 Hypokalemia; I25.10 Atherosclerotic heart disease of native coronary artery without angina pectoris; I25.2 Old myocardial infarction; R00.1 Bradycardia, unspecified; Z95.1 Presence of aortocoronary bypass graft; Z90.49 Acquired absence of other specified parts of digestive tract; Z79.52 Long term (current) use of systemic steroids; Z87.891 Personal history of nicotine dependence; Z79.82 Long term (current) use of aspirin; Z79.02 Long term (current) use of antithrombotics/antiplatelets; Z79.899 Other long term (current) drug therapy
CPT/HCPCS: 36415; 71045; 76937; 80048; 80053; 80069; 80076; 82533; 82947; 83735; 83880; 84100; 84443; 84484; 85025; 85027; 85347; 85610; 92928; 93005; 93306; 93459; 94760; 96374; 96375; 99152; 99153; 99285; C1725; C1760; C1893; G0269; J0360; J0461; J1644; J1940; J2003; J2250; J2405; J3010; J7030; J7120; J7512; Q9967

== ENCOUNTER 2024-12-22 17:12 | Emergency (ER) | payer OTHER ==
[2024-12-22 17:40] LABS: Absolute Lymphocytes (CBC) 0.3 K/uL (0.7-4.9); Hematocrit 34.5 % (39.6-49.0); Hemoglobin 11.3 g/dL (13.6-17.9); MCH 29.0 pg (27.0-35.0); MCHC 32.9 g/dL (32.0-36.0); MCV 88.3 fL (80-100); MPV 8.3 fL (7.6-11.3); Nucleated RBC Absolute Count 0.0 (0-0); Nucleated Red Blood Cells % 0.1 % (0-0); RBC Red Blood Cell Count 3.90 M/uL (4.33-5.43); White Blood Count 8.00 thou/uL (4.3-10.9)
--- OUTSIDE RECORDS SUMMARY | 2024-12-22 18:02 | XMS REPORT | Continuity of Care Document ---
Author Name Unknown Address [address] [facility] [address] [place] [address] [facility] [place] Address [address] [facility] 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 Name Role Phone Pcp, Pcp Primary Care Physician Unavailab SARA Almazan Attending Clinician JASMYNE Salas Attending Clinician Unavailable ASHWIN WEIR Attending Clinician UnavailABNER Matthews Attending Clinician Unavailable Saúl Pugh MD Attending Clinician [phone] PARMINDER POLLOCK Attending Clinician Unavailable Transplant, Kidney Surgery Attending Clinician U yadi Pollock MD, Parminder FKun Attending Clinician [phone] Abner Rivera MD Attending Clinician +[phone] Mohit ARCOS, Parminder Treviño Attending Clinician +[phone] TOMEKA HOYOS Attending Clinician Unavailable Randolph Katz MD Attending Clinician +[phone] Rafaela Lawrence MD Attending Clinician +[phone] Carlos Viveros MD Attending Clinician [phone] Calos ARCOS, Sara Stafford Attending Clinician + [phone] Transplant, Kidney Medicine Attending Clinician Unavailable Shanae ARCOS, Behzad Attending Clinician [phone] [facility] Mukesh Arce MD Attending Clinician [phone] MUKESH ARCE Attending Clinician Unavailable MUKESH ARCE Attending Clinician Unavailable Liane ARCOS, Naomie Andrade Attending Clinician +[phone] Zelalem BALLhT, Rakel Attending Clinician Unavaila boni Weir MD, Ashwin Gutierrez Attending Clinician +[phone] 2, [facility] Lab Attending Clinician Unavailable Sidney South, Sue Pereyra Attending Clinician Unavaila boni Harris MD, Abbey Attending Clinician [phone] Georgia Miller Attending Clinician Unavailab Padmaja Conroy Attending Clinician Unavailmelanie Hoyos MD, Tomeka Attending Clinician [phone] DHIRAJ FERNANDES Attending Clinician Unavailab DHIRAJ Salmeron Attending Clinician Unavailab jono Garcia NP, Junior Attending Clinician [phone] JUNIOR GARCIA Attending Clinician Unavailab JUNIOR Shipman Attending Clinician Unavailab jono Fitch CPhT, Shyann Das Attending Clinician Unava BEHZAD Heck Attending Clinician Unavailable Vtc-Lab Attending Clinician Unavailable Vicky [facility], Sandy Cooper Attending Clinician Unavail able KAIN JULIEN Attending Clinician Unavaila KAIN Lanier Attending Clinician Unavaila boni Watts MA, July A Attending Clinician Unavailab jono Van [facility], Marisela Attending Clinician Unavailable KATARZYNA COBURN Attending Clinician Unavaila boni Doctor Unassigned, [place] Attending Clinician U NAOMIE Ferris Attending Clinician Unava juarez Hoyos MD, Tomeka Attending Clinician [phone] Naomie Doty MD Attending Clinician +[phone] Nicolle Ramírez Attending Clinician [phone] Abner Rivera MD Attending Clinician +[phone] 2, Ad[facility] Lab Attending Clinician Unavailable Shanae ARCOS, Behzad Attending Clinician [phone] [facility] Hany [facility], Rose Pereyra Attending Clinician Unavail able NICOLLE PHILLIPS Attending Clinician Unavailable Miguel A FUENTES, Jack Dale Attending Clinician UnavailVENITA Penny Attending Clinician Unavailable Van [facility], Marisela Attending Clinician Unavailable Mukesh ARCOS, Venita Attending Clinician [phone] Jt Alejandro MD Attending Clinician [phone] Destin ARCOS, Ashwin Gutierrez Attending Clinician [phone] DIANDRA TILLMAN Attending Clinician Unavailable DIANDRA TILLMAN Attending Clinician Unavailable JT ALEJANDRO Attending Clinician Unavailable Cassius Deras RN Attending Clinician Unavail able Josefina ARCOS, Sanket Barrera Attending Clinician [phone] Elisabeth ARCOS, Jackson Attending Clinician +[phone] KURTIS CHASE Attending Clinician Unavailable KURTIS CHASE Attending Clinician Unavailable Vt-Lab Attending Clinician Unavailable Mohit ARCOS, Parminder Treviño Attending Clinician [phone] Padmaja Emerson MD Attending Clinician [phone] PADMAJA EMERSON Attending Clinician UnavailPenny Saenz RN Attending Clinician Unavailable VAN BROWN Attending Clinician Aida cruzito Brown MD, Van Landin Attending Clinician ML KEYES Attending Clinician Unavailable RADHA STAHL Attending Clinician Unavailable RADHA STAHL Attending Clinician Unavailable Lab, Ang - Db Attending Clinician Unavailable Katarzyna Coburn MD Attending Clinician [phone] UNKNOWN, ATTENDING Attending Clinician Unavailab le Unknown, Attending Attending Clinician Unavailab jono Iglesias [facility], Matt Attending Clinician Unavailable Nurse, [facility] Attending Clinician Unavailable Isreal Logan MD Attending Clinician + [phone] Vaccine, [facility] Family [facility] Attending Clinician Unavailable RORY JOLLY Attending Clinician Unavailable RORY JOLLY Attending Clinician Unavailable Alexandrea Segundo MD Attending Clinician [phone] ASHWIN WILSON Attending Clinician Unavailab jono Malave NP, Nkechi Lopez Attending Clinician [phone] Narendra Moore MD Attending Clinician [phone] Ashwin Wilson MD Attending Clinician + [phone] ISREAL LOGAN Attending Clinician Unavailnelson tomas Pelaez [facility], Laguna Attending Clinician Unavailnelson Parker MD, Nelly Damon Attending Clinician [phone] NELLY PARKER Attending Clinician Unacarly ilable GUU_SHENG_YAW Attending Clinician Unavailable GRAMM, BRENDA A Attending Clinician Unavailable Gramm ETHANOL OPERATOR, Brenda A Attending Clinician [phone] Tech, [facility] Attending Clinician Unavailnelson Julien MD, Kain Barrera Attending Clinician + [phone] [place], [facility] Test Attending Clinician Unavailable ZARI MEHTA Attending Clinician UnavailRadha Lassiter DO Attending Clinician +[phone] [facility] Attending Clinician Unavailable Tyson ACNZari Clemente Attending Clinician [phone] BRAN CHUA Attending Clinician Unavail able Nurse, [facility] Pob Immunization Attending Clinician Unavailable Bran Chua DO Attending Clinician [phone] Macho Ha MD Attending Clinician [phone] MACHO HA Attending Clinician Unavailable Jerrod Garcia PA-C Attending Clinician [phone] Jasmyne Roper MD Attending Clinician [phone] RAFAELA GLASER Attending Clinician Unavaila boni Lab, [facility] Fam Pob I Attending Clinician Unavailab Gian Irene Attending Clinician [phone] GIAN APPIAH Attending Clinician Unavailable Provider, [facility] Attending Clinician Un available Pob, [facility] Main Attending Clinician UnavailVernon Manzano MD Attending Clinician [phone] VERNON CLINE Attending Clinician Unavailable , [facility] Vascular Room 1 - Attending Clinician Un available RHEA SHEEHAN Attending Clinician Unavailable Kali FUENTES, Haven Cooper Attending Clinician Unavail able Regla Crooks DO Attending Clinician + [phone] Moris Hernandez MD Attending Clinician +[phone] MORIS HERNANDEZ Attending Clinician Unavailable EVER CACERES Attending Clinician Unavailable Caceres MD, Ever R Attending Clinician [phone] Green ETHANOL OPERATOR, Norma Attending Clinician [phone] JUAN FRANCISCO FLORES Attending Clinician Unavailable Darryn ARCOS, Ileana Attending Clinician [phone] Pcp-Lab Attending Clinician Unavailable ILEANA CATES Attending Clinician Unavailable Aubree FEUNTES, Luh M Attending Clinician [phone] Anthony Mcnamara DO Attending Clinician +[phone] Edy ARCOS, Era P Attending Clinician [phone] Edy ARCOS, Khurram Attending Clinician +[phone] KHURRAM SANCHEZ Attending Clinician Unavailable Diana FUENTES, Yuki Attending Clinician [phone] Jose ARCOS, Cristian Attending Clinician +[phone] Paulo Diallo MD Attending Clinician Pob1, Acute Care Clinic Attending Clinician Unav ailable PAULO DIALLO Attending Clinician Aida cruzito Bhagat RN, Mookie Attending Clinician Unavailab jono Turcios RN, Mariah P Attending Clinician Unavaila boni Bautista PA-C, Breonna Attending Clinician [phone] Care, Provider 27 - Adult & Pedi Urgent Attendin g Clinician Unavailable Pcp, Patient Does Not Have A Attending Clinician Santy FUENTES, Erin Attending Clinician Unavailable Olya Powers PT G Attending Clinician Unavailab Timmy Sears MD Attending Clinician [phone] Angelita Leavitt Attending Clinician Unavai lable 1, [facility] Attending Clinician Unavailable CARLOS VIVEROS Admitting Clinician Unavailable JASMYNE ROPER Admitting Clinician Unavailable Carlos Viveros MD Admitting Clinician [phone] VENITA MAYORGA Admitting Clinician Unavailable Veinta Mayorga MD Admitting Clinician [phone] ABNER RIVERA Admitting Clinician Unavailable NAOMIE DOTY Admitting Clinician Unava ilNARENDRA Gore Admitting Clinician Unavailab jono Moore MD, Narendra Damon Admitting Clinician +[phone] SUSANNE_SHENG_YAW Admitting Clinician Unavailable BRENDA RAPHAEL Admitting Clinician Unavailable ISREAL LOGAN Admitting Clinician UnavailTOMEKA Wood Admitting Clinician Unavailable RADHA STAHL Admitting Clinician Unavailable Jl ARCOS, Jasmyne Admitting Clinician [phone] Moris Hernandez MD Admitting Clinician [phone] MORIS HERNANDEZ Admitting Clinician Unavailable Khurram Sanchez MD Admitting Clinician +[phone] KHURRAM SANCHEZ Admitting Clinician Unavailable PAULO DIALLO Admitting Clinician Aida vailable Payers Payer Name Policy Type Policy Number Effective Date Expirati on Date Source [employer] Medicare [id number] 2024 00:00:00 [facility] DUAL COMP HMO D SNP [id number] 2020 00:00:00 MEDICARE PART A \\T\\ B [id number] 1997 00:00:00 [employer] MEDICAID DUAL COMPLETE HMO DSNP [id number] 2024 00:00:00 [facility] [id number] 2021 00:00:00 [employer] HMO [id number] 2020 00:00:00 Problems Condition Name Condition Details Condition Category Status Onset Date Resolution Date Last Treatment Date Treating Clinician Comments Source Paroxysmal A-fib ([facility]) Paroxysmal A-fib ([facility]) Disease Active 11-12 00:00: 00 Rakel Zepeda Coronary artery disease involving autologous artery coronary bypass graft without angina pectoris Coronary artery disease involving autologous artery coronary bypass graft without angina pectoris Disease Active 11-10 00:00: 00 Rakel Zepeda Essential hypertensi on Essential hypertensi on Disease Active 11-10 00:00: 00 Rakel Zepeda -d onor kidney transplant -d onor kidney transplant Disease Active 11-10 00:00: 00 Rakel Zepeda KATLYN (acute kidney injury) KATLYN (acute kidney injury) Disease Active 2025-0 7-16 00:00: 00 Rakel Zepeda Syncope and collapse Syncope and collapse Disease Active 15 00:00: 00 Rakle Zepeda Grief reaction Grief reaction Disease Active 04-29 00:00: 00 [facility] Stressful life event affecting family Stressful life event affecting family Disease Active 1- 00:00: 00 [facility] Intermitte nt headache Intermitte nt headache Disease Active - 00:00: 00 [facility] Asymptomat ic hypertensi ve urgency Asymptomat ic hypertensi ve urgency Disease Active - 00:00: 00 [facility] Anemia of chronic disease Anemia of chronic disease Disease Active 04-29 00:00: 00 [facility] Vitamin D deficiency Vitamin D deficiency Disease Active 04-29 00:00: 00 [facility] Hypomagnes emia Hypomagnes emia Disease Active 04-29 00:00: 00 [facility] Hypertensi ve kidney disease Hypertensi ve kidney disease Disease Active 04-29 00:00: 00 [facility] Other proteinuri a Other proteinuri a Disease Active 04-29 00:00: 00 [facility] GERD without esophagiti s GERD without esophagiti s Disease Active 01-20 00:00: 00 [facility] Cigarette nicotine dependence in remission Cigarette nicotine dependence in remission Disease Active 01-20 00:00: 00 [facility] S/P CABG (coronary artery bypass graft) S/P CABG (coronary artery bypass graft) Disease Active 01-20 00:00: 00 [facility] Cigarette nicotine dependence in remission Cigarette nicotine dependence in remission Disease Active 01-20 00:00: 00 [facility] Chronic heart failure with preserved ejection fraction Chronic heart failure with preserved ejection fraction Disease Active 01-12 00:00: 00 [facility] ANG (obstructi ve sleep apnea) ANG (obstructi ve sleep apnea) Disease Active 2024-0 7-17 00:00: 00 [facility] Leg edema Leg edema Disease Active 0 7-17 00:00: 00 [facility] Chest pain in adult Chest pain in adult Disease Active 0 3-06 00:00: 00 [facility] Non-STEMI (non-ST elevated myocardial infarction ) Non-STEMI (non-ST elevated myocardial infarction ) Disease Active 0 3-06 00:00: 00 [facility] FPC exposure to asbestos FPC exposure to asbestos Disease Active 0 6- 00:00: 00 [facility] Vision changes Vision changes Disease Active 0 626 00:00: 00 [facility] Hospital discharge follow-up Hospital discharge follow-up Disease Active 0 8- 00:00: 00 [facility] Hematuria, unspecifie d type Hematuria, unspecifie d type Disease Active 0 8-18 00:00: 00 [facility] Gouty arthritis of left great toe Gouty arthritis of left great toe Disease Active 0 6-07 00:00: 00 [facility] Post-COVID syndrome Post-COVID syndrome Disease Active 0 24 00:00: 00 [facility] Abnormal ankle brachial index (BHAVANI) Abnormal ankle brachial index (BHAVANI) Disease Active 0 5-24 00:00: 00 [facility] Clumsiness Clumsiness Disease Active 0 5-24 00:00: 00 [facility] Post-COVID syndrome Post-COVID syndrome Disease Active 0 5-24 00:00: 00 [facility] 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 Disease Active 0 5-24 00:00: 00 [facility] Skin rash Skin rash Disease Active 0 5-24 00:00: 00 [facility] Hyperchole sterolemia Hyperchole sterolemia Disease Active 0 5-24 00:00: 00 [facility] Mild intermitte nt chronic asthma without complicati on Mild intermitte nt chronic asthma without complicati on Disease Active 24 00:00: 00 [facility] Chronic allergic rhinitis Chronic allergic rhinitis Disease Active 24 00:00: 00 [facility] 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 Disease Active 2020-04 00:00: 00 [facility] 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 Added automatic ally from request for surgery [id number] [facility] Coronary artery disease involving chitina coronary artery of chitina heart without angina pectoris Coronary artery disease involving chitina coronary artery of chitina heart without angina pectoris Disease Active 2019-04 00:00: 00 [facility] Coronary artery disease involving chitina coronary artery of chitina heart with angina pectoris Coronary artery disease involving chitina coronary artery of chitina heart with angina pectoris Disease Active 2019-04 00:00: 00 [facility] Dyslipidem ia Dyslipidem ia Disease Active 2019-04 00:00: 00 [facility] Elevated troponin Elevated troponin Disease Active 2019-04 00:00: 00 [facility] Elevated troponin Elevated troponin Disease Active 2019-04 00:00: 00 [facility] Obesity (BMI 30-39.9) Obesity (BMI 30-39.9) Disease Active 2019-04 00:00: 00 [facility] Pericardia l effusion Pericardia l effusion Disease Active 2020-0 5-02 00:00: 00 [facility] Pneumonia of right lower lobe due to infectious organism Pneumonia of right lower lobe due to infectious organism Disease Active 0 4- 00:00: 00 [facility] Pneumonia of right lower lobe due to infectious organism Pneumonia of right lower lobe due to infectious organism Disease Active 0 4- 00:00: 00 [facility] Cough Cough Disease Active 0 4- 00:00: 00 [facility] Anxiety Anxiety Disease Active 0 4 00:00: 00 [facility] Mild cardiomega ly Mild cardiomega ly Disease Active 0 4 00:00: 00 [facility] Prediabete s Prediabete s Disease Active 0 2-06 00:00: 00 [facility] Lacunar infarction Lacunar infarction Disease Active 0 2-06 00:00: 00 [facility] 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 disease Disease Active 0 2-06 00:00: 00 [facility] 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 Disease Active 0 1-08 00:00: 00 [facility] BPH without urinary obstructio n BPH without urinary obstructio n Disease Active 2018-04 0-18 00:00: 00 [facility] Nodule of lower lobe of right lung Nodule of lower lobe of right lung Disease Active 2018-04 0-06 00:00: 00 [facility] Pulmonary nodules Pulmonary nodules Disease Active 2018-04 0-06 00:00: 00 [facility] BPH with obstructio n/lower urinary tract symptoms BPH with obstructio n/lower urinary tract symptoms Disease Active 2018-04 0-03 00:00: 00 Overview: Formattin g of this note might be different from the original. Added automatic ally from request for surgery [id number] [facility] Vitamin B12 deficiency Vitamin B12 deficiency Disease Active 05-23 00:00: 00 [facility] SS-B antibody positive SS-B antibody positive Disease Active 05-23 00:00: 00 [facility] Arthralgia of multiple joints Arthralgia of multiple joints Disease Active 05-23 00:00: 00 [facility] Abnormal SPEP Abnormal SPEP Disease Active 05-23 00:00: 00 Overview: Formattin g of this note might be different from the original. Polyclona l gammopath y [facility] Hypercalce hugo Hypercalce hugo Disease Active 05-23 00:00: 00 [facility] CKD (chronic kidney disease), stage III CKD (chronic kidney disease), stage III Disease Active 16 00:00: 00 [facility] Elevated pancreatic enzyme Elevated pancreatic enzyme Disease Active 12-14 00:00: 00 [facility] Microscopi c hematuria Microscopi c hematuria Disease Active 12-14 00:00: 00 [facility] Nephrolith iasis Nephrolith iasis Disease Active 12-14 00:00: 00 Overview: Formattin g of this note might be different from the original. Of transplan sonja kidney [facility] Immunosupp ression Immunosupp ression Disease Active 12-31 00:00: 00 [facility] Diarrhea Diarrhea Disease Active 12-29 00:00: 00 [facility] Fever Fever Disease Active 12-29 00:00: 00 [facility] UTI (urinary tract infection) UTI (urinary tract infection) Disease Active 12-28 00:00: 00 [facility] HSV-2 seropositi ve HSV-2 seropositi ve Disease Active 09-11 00:00: 00 [facility] History of syphilis History of syphilis Disease Active 09-11 00:00: 00 [facility] Bilateral groin pain Bilateral groin pain Disease Active 09-05 00:00: 00 [facility] Immunosupp ressive management encounter following kidney transplant Immunosupp ressive management encounter following kidney transplant Disease Active 4- 00:00: 00 [facility] Coronary artery disease without angina pectoris Coronary artery disease without angina pectoris Disease Active 07-23 00:00: 00 [facility] Coronary artery disease without angina pectoris Coronary artery disease without angina pectoris Disease Active 07-23 00:00: 00 [facility] Atypical chest pain Atypical chest pain Disease Active 07-23 00:00: 00 [facility] Abdominal pain Abdominal pain Disease Active 01-25 00:00: 00 [facility] Post-opera tive state Post-opera tive state Disease Active 09-28 00:00: 00 [facility] Elevated serum creatinine Elevated serum creatinine Disease Active 01-21 00:00: 00 [facility] Need for prophylact ic immunother apy Need for prophylact ic immunother apy Disease Recurre nce 09-07 00:00: 00 [facility] Medicare annual wellness visit, subsequent Medicare annual wellness visit, subsequent Disease Active 09-07 00:00: 00 [facility] Kidney replaced by transplant Kidney replaced by transplant Disease Recurre nce 2011-04 00:00: 00 [facility] LEFT VENTRICULA R HYPERTROPH Y LEFT VENTRICULA R HYPERTROPH Y Disease Recurre nce 2004-04 00:00: 00 Overview: Formattin g of this note might be different from the original. 5 [facility] Hep C w/o coma, chronic Hep C w/o coma, chronic Disease Active 2004-04 00:00: 00 [facility] Severe obstructiv e sleep apnea Severe obstructiv e sleep apnea Disease Active 2003-04 00:00: 00 Overview: Formattin g of this note might be different from the original. 4ICD10 Diagnosis Term Coding Team Lead Utility [facility] Essential hypertensi on Essential hypertensi on Disease Recurre nce 01-24 00:00: 00 [facility] Bacteremia Bacteremia Disease Resolve d 12-31 00:00: 00 2018-05-13 00:00:00 2018-05-13 20:59:49 [facility] Sepsis due to Escher[place] a coli Sepsis due to Escher[place] a coli Disease Resolve d 905 00:00: 00 2018-05-13 00:00:00 2018-05-13 20:44:03 [facility] Pyelonephr itis Pyelonephr itis Disease Resolve d 9-05 00:00: 00 2018-05-13 00:00:00 2018-05-13 20:59:35 [facility] Acute chest pain Acute chest pain Disease Resolve d 328 00:00: 00 2018-05-13 00:00:00 2018-05-13 20:59:42 [facility] Pancreatit is, gallstone Pancreatit is, gallstone Disease Resolve d 6 00:00: 00 2014-10-16 00:00:00 2014-10-16 16:14:15 [facility] Pancreatit is, acute Pancreatit is, acute Disease Resolve d 09-16 00:00: 00 2014-10-16 00:00:00 2014-10-16 16:14:11 [facility] Calcineuri n inhibitor toxicity, therapeuti c use Calcineuri n inhibitor toxicity, therapeuti c use Disease Resolve d 01-22 00:00: 00 2014-10-16 00:00:00 2021-11-11 00:26:42 [facility] Abdominal pain, other specified site Abdominal pain, other specified site Disease Resolve d 01-21 00:00: 00 2014-10-16 00:00:00 2021-11-11 00:26:42 [facility] Palpitatio ns Palpitatio ns Disease Resolve d 12-15 00:00: 00 2014-10-16 00:00:00 2014-10-16 16:14:09 [facility] Chest pain Chest pain Disease Resolve d 12-15 00:00: 00 2014-10-16 00:00:00 2021-11-11 00:17:23 [facility] Unspecifie d intestinal obstructio n Unspecifie d intestinal obstructio n Disease Resolve d 2 00:00: 00 2014-10-16 00:00:00 2014-10-16 16:13:44 [facility] URIN TRACT INFECTION NOS URIN TRACT INFECTION NOS Disease Resolve d - 00:00: 00 2014-10-16 00:00:00 2014-10-16 16:14:29 [facility] Pneumonia, organism unspecifie d(486) Pneumonia, organism unspecifie d(486) Disease Resolve d 2004-04 00:00: 00 2014-10-16 00:00:00 2014-10-16 16:14:22 [facility] Complicati on of transplant ed kidney Complicati on of transplant ed kidney Disease Resolve d 2004-04 00:00: 00 2014-10-16 00:00:00 2021-11-11 00:07:32 [facility] Complicati on of transplant ed organ Complicati on of transplant ed organ Disease Resolve d 2004-04 00:00: 00 2014-10-16 00:00:00 2021-11-11 00:12:45 [facility] Pleural effusion Pleural effusion Disease Resolve d 05-19 00:00: 00 2014-10-16 00:00:00 2015-01-27 17:42:52 [facility] Acute myocardial infarction of other specified sites, episode of care unspecifie d Acute myocardial infarction of other specified sites, episode of care unspecifie d Disease Resolve d 04-28 00:00: 00 2014-10-16 00:00:00 2014-10-16 16:14:02 [facility] Peptic ulcer Peptic ulcer Disease Resolve d 04-28 00:00: 00 2014-10-16 00:00:00 2015-01-27 17:42:52 [facility] Disease of pericardiu m Disease of pericardiu m Disease Resolve d 2014-10-16 00:00:00 2015-01-27 17:42:52 [facility] Bladder leak post transplant Bladder leak post transplant Disease Resolve d 04-29 00:00: 00 2005-05-07 00:00:00 2010-05-31 20:48:07 [facility] Hydronephr osis Hydronephr osis Disease Resolve d 2004-04 00:00: 00 2005-05-01 00:00:00 2010-05-31 20:52:10 [facility] ACUTE TUBUALR NECROSIS ACUTE TUBUALR NECROSIS Disease Resolve d 2004-04 00:00: 00 2005-03-29 00:00:00 2010-05-31 20:46:10 [facility] Seroma Seroma Disease Resolve d 2004-04 00:00: 00 2005-03-29 00:00:00 2010-05-31 20:49:57 [facility] Edema Edema Disease Resolve d 2004-04 00:00: 00 2005-03-29 00:00:00 2010-05-31 20:50:18 [facility] Urinary tract infection, site not specified Urinary tract infection, site not specified Disease Resolve d 2004-04 00:00: 00 2005-03-26 00:00:00 2010-02-08 15:14:44 [facility] End stage renal disease End stage renal disease Disease Resolve d 2003-04 00:00: 00 2005-03-08 00:00:00 2021-11-11 00:07:30 [facility] Acute edema of lung Acute edema of lung Disease Resolve d 05-19 00:00: 00 2004-05-29 00:00:00 2021-11-11 00:12:45 [facility] Allergies, Adverse Reactions, Alerts Allergy Name Allergy Type Status Severity Reaction(s) Onset Date Inactive Date Treating Clinician Comments Source NO KNOWN ALLERGIE S Drug Class Active [facility] Social History Social Habit Start Date Stop Date Quantity Comments Source Gender identity Tacho luis Huff Epic Sexual orientation Suyapa Huff Epic History of tobacco use Cigarette Smoker [facility] History of Occupation [facility] History SDOH Alcohol Frequency [facility] History SDOH Alcohol Std Drinks [facility] History SDOH Alcohol Binge [facility] Alcoholic beverage intake 2024-11-10 00:00:00 2024-11-10 00:00:00 Current drinker of alcohol (finding) Kimberlyn Huff [facility] History of Social function 2024-11-10 00:00:00 2024-11-10 00:00:00 Kimberlyn Huff [facility] Sex 2024-11-09 11:11:50 2024-11-09 11:11:50 Male (finding) Kimberlyn Huff [facility] Tobacco use and exposure 2023-10-07 00:00:00 2023-10-07 00:00:00 Smokeless tobacco non-user [facility] Alcohol intake 2023-07-31 00:00:00 2023-07-31 00:00:00 Current non-drinker of alcohol (finding) [facility] Exposure to SARS-CoV-2 (event) 2022-09-14 00:00:00 2022-09-24 13:34:00 Not sure [facility] Tobacco Comment 2021-11-14 00:00:00 2021-11-14 00:00:00 Denies. 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 Ordering Clinician Indication Dosage Frequency Signature (SIG) Comments Components Source aspirin 81 MG chewable tablet aspirin 81 MG chewable tablet 11-20 00:00: 00 12-20 23:59 :00 No 81mg QD Chew 1 tablet 1 time each day. Rakel cooper Refugio Epic magnesium oxide (Mag-Ox) 250 MG tablet magnesium oxide (Mag-Ox) 250 MG tablet 11-19 17:15: 01 11-19 00:00 :00 No 250mg QD Take 250 mg by mouth 1 time each day. Rakel cooper Ref[place] Epic dupilumab (Dupixent) 300 MG/2ML Pre-filled Auto-Inject or dupilumab (Dupixent) 300 MG/2ML Pre-filled Auto-Inject or 11-19 17:14: 58 Yes 300mg Q14D Inject 300 mg under the skin every 14 days. Rakel Huff Epic fluticasone (Flonase) 50 MCG/ACT nasal spray fluticasone (Flonase) 50 MCG/ACT nasal spray 11-19 17:14: 58 Yes 2{spray } QD Administer 2 sprays into each nostril 1 time each day. Shake gently. Before first use, prime pump. After use, clean tip and replace cap. Uniqueparviz allison Refugio Epic magnesium oxide (Mag-Ox) tablet 800 mg magnesium oxide (Mag-Ox) tablet 800 mg 11-19 12:45: 00 11-19 13:47 :00 No 800mg 800 mg, Oral, Once, On Fri11/19/24 at 1245, For 1 dose Uniqueparviz allison Refugio Zepeda sodium bicarbonate tablet 650 mg sodium bicarbonate tablet 650 mg 11-19 10:15: 00 Yes 650mg Q.5D 650 mg, Oral, 2 times daily, First dose on Fri11/19/24 at 1015 Rakel cooper [place] Epic mycophenola te (Cellcept) 250 MG capsule mycophenola te (Cellcept) 250 MG capsule 11-19 00:00: 00 12-19 23:59 :00 No 500mg Q.5D Take 2 capsules by mouth in the morning and 2 capsules in the evening. Rakel cooper Ref[place] Epic sodium bicarbonate 650 MG tablet sodium bicarbonate 650 MG tablet 11-19 00:00: 00 12-19 23:59 :00 No 650mg Q.5D Take 1 tablet by mouth in the morning and 1 tablet in the evening. Rakel Zepeda magnesium oxide (Mag-Ox) tablet 800 mg magnesium oxide (Mag-Ox) tablet 800 mg 11-18 08:45: 00 11-18 10:49 :00 No 800mg 800 mg, Oral, Once, On Fri11/18/24 at 0845, For 1 dose Rakel Zepeda labetalol (Normodyne) tablet 400 mg labetalol (Normodyne) tablet 400 mg 11-17 21:00: 00 Yes 400mg Q12H 400 mg, Oral, Every 12 hours, First dose (after last modificati on) on Fri11/17/24 at 2100 Rakel Huff [facility] heparin injection 5,000 Units heparin injection 5,000 Units 11-17 14:00: 00 Yes 5000U Q8H 5,000 Units, Subcutaneo us, Every 8 hours, First dose on Fri11/17/24 at 1400 Rakel Huff [facility] calcium carbonate (Os-Willie) 1250 (500 Ca) MG tablet 500 mg of elemental calcium calcium carbonate (Os-Willie) 1250 (500 Ca) MG tablet 500 mg of elemental calcium 11-16 08:00: 00 Yes 1250mg 500 mg of elemental calcium (1,250 mg), Oral, Every morning, First dose (after last reorder) on Fri11/16/24 at 0800 Rakel Huff [facility] technetium Tc-99m pyrophospha te (PYP) radio-isoto pe injection 23.1 millicurie technetium Tc-99m pyrophospha te (PYP) radio-isoto pe injection 23.1 millicurie 11-15 11:15: 00 11-15 11:00 :00 No 23.1mCi 23.1 millicurie , Intravenou s, Once, On Fri11/15/24 at 1115, For 1 dose Rakel Huff [facility] gadobenate dimeglumine (Multihance ) injection 17 mL gadobenate dimeglumine (Multihance ) injection 17 mL 11-15 10:13: 40 11-15 10:14 :00 No 17mL 17 mL, Intravenou s, Once in imaging, Starting on Fri11/15/24 at 1013, For 1 dose Rakel Zepeda furosemide (Lasix) injection 20 mg furosemide (Lasix) injection 20 mg 11-15 06:00: 00 11-15 07:40 :00 No 20mg 20 mg, Intravenou s, Once as needed, 20mg Lasix IVP- to be given 15 mins prior to MRI once. Please send the lasix with the patient to MRI so MRI RN can administer medication just before MRI, Starting on Fri11/15/24 at 0600, For 1 dose, 20mg Lasix IVP- to be given 15 mins prior to MRI once. Please send the lasix with the patient to MRI so MRI RN can administer medication just before MRI Rakel uHff Epic sodium chloride 0.9 % bolus 1,000 mL sodium chloride 0.9 % bolus 1,000 mL 11-15 06:00: 00 11-15 07:01 :00 No 1000mL 1,000 mL, Intravenou s, at 1,000 mL/hr, Administer over 1 Hours, Once, On Fri11/15/24 at 0600, For 1 dose, IV fluid to start at 0600 am prior to MRI Rakel Huff Epic sodium chloride 0.9 % infusion sodium chloride 0.9 % infusion 11-14 11:00: 00 11-17 11:55 :15 No 50mL/h 50 mL/hr, Intravenou s, Continuous , Starting on Fri11/14/24 at 1100 Rakel Huff Epic heparin 50 units/mL in sodium chloride 0.45 % heparin 50 units/mL in sodium chloride 0.45 % 11-12 16:30: 00 11-17 09:09 :51 No .1U/kg/ h 0.1-40 Units/kg/h r ?87.6 kg (0.1752-70 .08 mL/hr, rounded to 0.18-70.08 mL/hr), Intravenou s, Continuous , Starting on Fri11/12/24 at 1630, AFIB/Strok e PTT Weight Based Heparin Protocol: Lab Instructio ns Obtain baseline PTT PRIOR to initiating heparin (if not available within the previous 6 hours). When initiating the drip, do not wait for PTT results to start the drip. If patient received THROMBOLYT ICS within the previous 6 hours, then repeat STAT PTT, notify provider of the PTT before initiating heparin infusion. Draw PTT 6 hours after drip initiation and follow titration table below. Do not collect PTT through the line heparin is infusing through. CALCULATOR INSTRUCTIO NS: 1) Go to the applicable Protocol Action below (A, B, C or D) A) Initiate Protocol a) Do not enter a current PTT value to initiate protocol. b) The Initial Dose (units/kg/ hr) will appear under the Calculated Dose section. c) Enter the Calculated Initial Dose into the "Dose" field under Administra tion Details. d) Once the dose is entered under the administra tion details, the Rate will also reflect in mL/hr. e) Verify the rate does not exceed the maximum initial infusion rate (Max 1200 units/hr = 24 mL/hr) B) Dose Change/The rapeutic a) Select Dose Change/The rapeutic action for all PTT results except STAT REPEAT PTT >/=151 b) Current PTT value must be entered into the current PTT field c) Once the PTT is entered, the Calculated Dose field will provide instructio ns for next steps. d) Enter the Calculated Dose into the "Dose" field under Administra tion Details. C) Bag Change Only a) Select this action for Bag Change only without new PTT results. The "Dose" should not change from the previous MAR documentat ion. b) For Bag Change with new PTT results, select Dose Change/The rapeutic option (STEP B). D) CRITICAL PTT PATHWAY - Repeat PTT >/= 151 a) Select this action when REPEAT PTT >/= 151. b) Use this action until restarting the infusion for repeat PTT < 100 c) Select Dose Change/The rapeutic action (STEP B) for follow up PTTs AFTER infusion has been restarted. d) Enter the calculated Dose into the "Dose" field under Administra tion Details. 2) Scroll to the bottom of the page and continue with second nurse verify. AFIB/Strok e PTT Weight Based Heparin Adjustment Protocol See Dosing Calculator for recommende d dose (start at 14 units/kg/h r UNLESS INITIAL dose exceeds MAX of 1,200 units/hr = 24 mL/hr). Calculate heparin infusion doses using actual body weight. Titration Table: PTT < 30 sec: INCREASE dose by 4 units /kg/hr (Actual body Weight). Notify Provider STAT. Draw PTT 6 hours after increase in dose. PTT 30 - 45.9 sec: INCREASE dose by 3 units/kg/h r (Actual body Weight). Draw PTT 6 hours after increase in dose. PTT 46 - 59.9 sec: INCREASE dose by 2 units/kg/h r (Actual body Weight). Draw PTT 6 hours after increase in dose. PTT 60 - 79.9 sec: Therapeuti c, continue at same dose. Redraw PTT in 6 hours to confirm. Once 3 consecutiv e therapeuti c PTT, reduce draws to Q12H. PTT 80 - 90.9 sec: DECREASE dose by 1 unit/kg/hr (Actual Body Weight). Draw PTT 6 hours after decrease in dose. PTT 91 - 99.9 sec: HOLD infusion for 45 min. Notify provider STAT. DECREASE dose by 2 units/kg/h r (Actual Body Weight). Draw PTT 6 hours after decrease in dose. PTT 100 - 119.9 sec: HOLD infusion for 60 min. Notify provider STAT. DECREASE dose by 3 units/kg/h r (Actual Body Weight). Draw PTT 6 hours after decrease in dose. PTT 120 - 150.9 sec: HOLD infusion for 60 min. Notify provider STAT. DECREASE dose by 4 units/kg/h r (Actual Body Weight). Draw PTT 6 hours after decrease in dose. PTT >/= 151 sec: HOLD infusion and repeat PTT STAT through venipunctu re or separate line. Notify provider STAT 1. If repeat PTT < 151 sec, then follow above protocol. 2. CRITICAL PTT PATHWAY: If repeat PTT >/= 151 sec, then continue to HOLD infusion & repeat PTT every 2 hours until PTT < 100 sec. Then DECREASE previous dose by 5 units/kg/h r (Actual Body Weight). Draw PTT 6 hours after decrease in dose. Rakel Zepeda gadoteridol (Prohance) injection 5,586 mg gadoteridol (Prohance) injection 5,586 mg 11-12 11:17: 43 11-12 11:18 :00 No 20mL 5,586 mg (20 mL), Intravenou s, Once in imaging, Starting on Fri11/12/24 at 1117, For 1 dose Rakel Zepeda mycophenola te (Cellcept) capsule 500 mg mycophenola te (Cellcept) capsule 500 mg 11-11 17:00: 00 Yes 500mg Q.5D 500 mg, Oral, 2 times daily, First dose on Fri11/11/24 at 1700, TIME CRITICAL MEDICATION (Same As: CellCept) SEPARATE ANTACIDS from Cellcept by 2 hrs. (Do Not Crush) Hazardous Drug Group 2:Non-anti neoplastic Hazardous Drug -- Refer to safe handling procedure PPE Matrix Rakel Zepeda aspirin chewable tablet 81 mg aspirin chewable tablet 81 mg 11-11 13:00: 00 Yes 81mg QD 81 mg, Oral, Daily, First dose on Fri11/11/24 at 1300 Rakel Zepeda magnesium oxide (Mag-Ox) tablet 400 mg magnesium oxide (Mag-Ox) tablet 400 mg 11-10 12:30: 00 11-10 12:37 :00 No 400mg 400 mg, Oral, Once, On Fri11/10/24 at 1230, For 1 dose Rakel Zepeda potassium chloride CR (Klor-Con M20) ER tablet 40 mEq potassium chloride CR (Klor-Con M20) ER tablet 40 mEq 11-10 12:30: 00 11-10 12:37 :00 No 40meq 40 mEq, Oral, Once, On Fri11/10/24 at 1230, For 1 dose, For patients able to take medication s orally or via feeding tube >/= 14 [place], may dissolve each 20 mEq tablet in 4 oz of water. Allow about 2 minutes for the tablets to disintegra te. Stir before giving to prepare slurry and administer . Please exclude patient's with feeding tube less than 14 [place] (Dobhoff, J-tube, etc) and pediatric and patients Do not crush or chew. Rakel Huff Epic sulfur hexafluorid e lipid-type A microsphere s (Lumason) 60.7-25 MG Injectable suspension 2 mL sulfur hexafluorid e lipid-type A microsphere s (Lumason) 60.7-25 MG Injectable suspension 2 mL 11-10 11:26: 04 11-10 08:39 :00 No 2mL 2 mL, Intravenou s, Once in imaging, Starting on Fri11/10/24 at 1126, For 1 dose, Reconstitu te with 5 mL of PF NS only using provided Mini-Rodri ; shake vigorously for 20 sec until a homogenous white milky suspension forms. Use immediatel y. May repeat once during procedure. Rakel Zepeda minoxidil (Loniten) tablet 5 mg minoxidil (Loniten) tablet 5 mg 11-10 09:00: 00 Yes 5mg Q.5D 5 mg, Oral, 2 times daily, First dose on Fri11/10/24 at 0900, On hold since Fri11/14/2024 at 1049 until manually unheld Rakel Zepeda furosemide (Lasix) tablet 20 mg furosemide (Lasix) tablet 20 mg 11-10 09:00: 00 Yes 20mg Q.5D 20 mg, Oral, 2 times daily, First dose (after last modificati on) on Fri11/10/24 at 0900, On hold since Fri11/10/2024 at 1453 until manually unheld Rakel Zepeda labetalol (Normodyne) tablet 200 mg labetalol (Normodyne) tablet 200 mg 11-10 09:00: 00 11-17 11:51 :11 No 200mg Q12H 200 mg, Oral, Every 12 hours, First dose (after last modificati on) on Fri11/10/24 at 0900 Rakel Zepeda Oyster Shell Calcium tablet 500 mg of elemental calcium Oyster Shell Calcium tablet 500 mg of elemental calcium 11-10 08:30: 00 11-15 21:43 :30 No 500mg 500 mg of elemental calcium (500 mg), Oral, Every morning, First dose on Fri11/10/24 at 0830 Rakel Zepeda predniSONE (Deltasone) tablet 5 mg predniSONE (Deltasone) tablet 5 mg 11-10 07:00: 00 Yes 5mg 5 mg, Oral, Every morning, First dose on Fri11/10/24 at 0700 Rakel Zepeda lisinopril tablet 5 mg lisinopril tablet 5 mg 11-10 07:00: 00 Yes 5mg Rakel Zepeda ezetimibe (Zetia) tablet 10 mg ezetimibe (Zetia) tablet 10 mg 11-10 07:00: 00 Yes 10mg 10 mg, Oral, Every morning, First dose on Fri11/10/24 at 0700 Rakel Zepeda amLODIPine (Norvasc) tablet 10 mg amLODIPine (Norvasc) tablet 10 mg 11-10 07:00: 00 Yes 10mg 10 mg, Oral, Every morning, First dose on Fri11/10/24 at 0700 Rakel Zepeda allopurinol (Zyloprim) tablet 100 mg allopurinol (Zyloprim) tablet 100 mg 11-10 07:00: 00 Yes 100mg 100 mg, Oral, Every morning, First dose on Fri11/10/24 at 0700 Rakel Zepeda tacrolimus (Prograf) capsule 5 mg tacrolimus (Prograf) capsule 5 mg 11-09 21:20: 00 Yes 5mg Q.5D 5 mg, Oral, 2 times daily, First dose on Fri11/09/24 at 2120, Time Critical Medication . Avoid grapefruit and grapefruit juice. Rakel Zepeda ticagrelor (Brilinta) tablet 90 mg ticagrelor (Brilinta) tablet 90 mg 11-09 21:00: 00 Yes 90mg Q.5D 90 mg, Oral, Every 12 hours scheduled, First dose on Fri11/09/24 at 2100 Rakel Zepeda tamsulosin (Flomax) 24 hr capsule 0.8 mg tamsulosin (Flomax) 24 hr capsule 0.8 mg 11-09 21:00: 00 Yes .8mg 0.8 mg, Oral, Nightly, First dose on Fri11/09/24 at 2100 Rakel Zepeda sucralfate (Carafate) tablet 1 g sucralfate (Carafate) tablet 1 g 11-09 21:00: 00 Yes 1g Q.25D 1 g, Oral, 4 times daily, First dose on Fri11/09/24 at 2100 Rakel Zepeda pravastatin (Pravachol) tablet 40 mg pravastatin (Pravachol) tablet 40 mg 11-09 21:00: 00 Yes 40mg 40 mg, Oral, Nightly, First dose on Fri11/09/24 at 2100 Rakel Zepeda mirtazapine (Remeron) tablet 7.5 mg mirtazapine (Remeron) tablet 7.5 mg 11-09 21:00: 00 Yes 7.5mg 7.5 mg, Oral, Nightly, First dose on Fri11/09/24 at 2100 Rakel Huff [facility] sodium chloride (NS) 0.9 % flush 10 mL sodium chloride (NS) 0.9 % flush 10 mL 11-09 21:00: 00 Yes 10mL Q.5D 10 mL, Intravenou s, Every 12 hours scheduled, First dose on Fri11/09/24 at 2100, Administer at least once every 12 hours Rakel Zepeda labetalol (Normodyne) tablet 400 mg labetalol (Normodyne) tablet 400 mg 11-09 21:00: 00 11-10 03:00 :51 No 400mg Q12H 400 mg, Oral, Every 12 hours, First dose on Fri11/09/24 at 2100 Rakel Zepeda furosemide (Lasix) tablet 40 mg furosemide (Lasix) tablet 40 mg 11-09 21:00: 00 11-10 02:45 :07 No 40mg Q.5D 40 mg, Oral, 2 times daily, First dose on Fri11/09/24 at 2100 Rakel Huff Epic sodium chloride (NS) 0.9 % flush 10 mL sodium chloride (NS) 0.9 % flush 10 mL 11-09 20:57: 35 Yes 10mL Rakel Zepeda furosemide (Lasix) injection 40 mg furosemide (Lasix) injection 40 mg 11-09 18:35: 00 11-09 18:46 :00 No 40mg 40 mg, Intravenou s, Once, On Fri11/09/24 at 1835, For 1 dose Rakel Zepeda iohexol (OMNIPaque) 350 MG/ML injection 70 mL iohexol (OMNIPaque) 350 MG/ML injection 70 mL 11-09 15:38: 32 11-09 15:38 :00 No 70mL 70 mL, Intravenou s, Once in imaging, Starting on Fri11/09/24 at 1538, For 1 dose Rakel Zepeda phosphorus (K Phos Neutral) tablet 250 mg phosphorus (K Phos Neutral) tablet 250 mg 11-09 14:00: 00 11-09 15:25 :00 No 250mg 250 mg, Oral, Once, On Fri11/09/24 at 1400, For 1 dose Rakel Huff Epic magnesium sulfate IVPB 2 g magnesium sulfate IVPB 2 g 11-09 14:00: 00 11-09 16:58 :00 No 2g 2 g, Intravenou s, at 25 mL/hr, Administer over 2 Hours, Once, On Fri11/09/24 at 1400, For 1 dose Rakel Zepeda predniSONE (Deltasone) 5 MG tablet predniSONE (Deltasone) 5 MG tablet 10-27 00:00: 00 Yes 5mg Take 5 mg by mouth every morning. Rakel Zepeda tacrolimus (Prograf) 1 MG capsule tacrolimus (Prograf) 1 MG capsule 10-21 00:00: 00 Yes 5mg Q.5D Take 5 mg by mouth in the morning and 5 mg in the evening. Rakel Zepeda furosemide (Lasix) 20 MG tablet furosemide (Lasix) 20 MG tablet 10-21 00:00: 00 11-19 00:00 :00 No 40mg Q.5D Take 40 mg by mouth in the morning and 40 mg in the evening. Rakel Huff Epic mycophenola te (Cellcept) 250 MG capsule mycophenola te (Cellcept) 250 MG capsule 10-21 00:00: 00 11-19 00:00 :00 No 500mg Q.5D Take 500 mg by mouth in the morning and 500 mg in the evening. Rakel Huff Epic tacrolimus 1 mg capsule 10-04 00:00: 00 10-21 00:00 :00 No [id number] TAKE 5 CAPSULES BY MOUTH EVERY 12 HOURS. (TAKE 5 CAPS IN THE MORNING AND 5 CAPS IN THE EVENING) [facility] minoxidiL 10 mg tablet 6-03 00:00: 00 Yes [id number] TAKE 1/2 TABLET BY MOUTH TWICE A DAY [facility] dupilumab (DUPIXENT PEN) 300 mg/2 mL PnIj [id number] 5-05 00:00: 00 Yes [id number] 300mg inject 1 Pen under the skin every 14 (fourteen) days. [facility] fluticasone propionate 50 mcg/actuati on nasal spray 24 00:00: 00 Yes [id number] 1{spray } Use 1 [place] in each nostril in the morning. [facility] calcium carbonate (Os-Willie) 1250 (500 Ca) MG tablet calcium carbonate (Os-Willie) 1250 (500 Ca) MG tablet 08-04 00:00: 00 Yes 1{tbl} Take 1 tablet by mouth every morning. Rakel Zepeda ergocalcife rol, vitamin d2, 1,250 mcg (50,000 unit) capsule 08-04 00:00: 00 Yes [id number] Take 1 capsule by mouth weekly. [facility] calcium carbonate (OYSTER SHELL CALCIUM 500) 500 mg calcium (1,250 mg) tablet 08-04 00:00: 00 Yes [id number] 500mg Take 1 tablet by mouth in the morning. [facility] allopurinol (Zyloprim) 100 MG tablet allopurinol (Zyloprim) 100 MG tablet 08-03 00:00: 00 Yes 100mg Take 100 mg by mouth every morning. Rakel Zepeda amLODIPine (Norvasc) 10 MG tablet amLODIPine (Norvasc) 10 MG tablet 08-03 00:00: 00 Yes 10mg Take 10 mg by mouth every morning. Rakel Zepeda labetalol (Normodyne) 200 MG tablet labetalol (Normodyne) 200 MG tablet -08 00:00: 00 Yes 400mg Q12H Take 400 mg by mouth in the morning and 400 mg in the evening. Rakel Zepeda mirtazapine (Remeron) 7.5 MG tablet mirtazapine (Remeron) 7.5 MG tablet 08 00:00: 00 Yes 7.5mg Take 7.5 mg by mouth at bedtime. Rakel Zepeda pravastatin (Pravachol) 40 MG tablet pravastatin (Pravachol) 40 MG tablet 08 00:00: 00 Yes 40mg Take 40 mg by mouth at bedtime. Rakel Zepeda sucralfate (Carafate) 1 g tablet sucralfate (Carafate) 1 g tablet 08-03 00:00: 00 Yes 1g Q.25D Take 1 g by mouth in the morning and 1 g at noon and 1 g in the evening and 1 g before bedtime. Rakel Zepeda tamsulosin (Flomax) 0.4 MG 24 hr capsule tamsulosin (Flomax) 0.4 MG 24 hr capsule 08-03 00:00: 00 Yes .8mg Take 0.8 mg by mouth at bedtime. Rakel Zepeda Magnesium 250 mg Tab 08-03 00:00: 00 Yes [id number] 1{tbl} Take 1 tablet by mouth in the morning. [facility] lisinopril 5 MG tablet lisinopril 5 MG tablet 08-03 00:00: 00 11-19 00:00 :00 No 5mg Take 5 mg by mouth every morning. [facility] furosemide 20 mg tablet 08-03 00:00: 00 10-21 00:00 :00 No [id number] 20mg Take 1 tablet by mouth every morning and evening. [facility] ezetimibe (Zetia) 10 MG tablet ezetimibe (Zetia) 10 MG tablet 08-02 00:00: 00 Yes 10mg Take 10 mg by mouth every morning. Rakel Huff [facility] tacrolimus 1 mg capsule 07-20 00:00: 00 10-04 00:00 :00 No [id number] TAKE 5 CAPSULES BY MOUTH EVERY 12 HOURS. (TAKE 5 CAPS IN THE MORNING AND 5 CAPS IN THE EVENING) [facility] furosemide 20 mg tablet 3-18 00:00: 00 08-03 00:00 :00 No [id number] 20mg Take 1 tablet by mouth every morning and evening. [facility] dupilumab (DUPIXENT PEN) 300 mg/2 mL PnIj [id number] 3-05 00:00: 00 08-30 00:00 :00 No [id number] 300mg inject 1 Pen under the skin every 14 (fourteen) days [facility] TACROLIMUS 1 mg capsule 2- 00:00: 00 07-20 00:00 :00 No [id number] TAKE 5 CAPSULES BY MOUTH EVERY 12 HOURS. (TAKE 5 CAPS IN THE MORNING AND 5 CAPS IN THE EVENING) [facility] labetaloL 200 mg tablet 2-12 00:00: 00 08-03 00:00 :00 No [id number] 400mg Take 2 tablets by mouth every 12 (twelve) hours. [facility] [facility] ticagrelor 90 mg tablet 05-26 09:33: 50 Yes 90mg Take 1 tablet by mouth in the morning and 1 tablet in the evening. [facility] lisinopriL 5 mg tablet - 00:00: 00 08-03 00:00 :00 No [id number] 5mg TAKE 1 TABLET BY MOUTH EVERY DAY IN THE MORNING [facility] amLODIPine 10 mg tablet - 00:00: 00 08-03 00:00 :00 No 10mg Take 1 tablet by mouth in the morning. [facility] fluticasone propionate 50 mcg/actuati on nasal spray - 00:00: 00 08-19 00:00 :00 No [id number] SPRAY 2 SPRAYS INTO EACH NOSTRIL IN THE MORNING [facility] Magnesium 250 mg Tab - 00:00: 00 08-03 00:00 :00 No [id number] 1{tbl} Take 1 tablet by mouth in the morning. [facility] fluticasone propionate 50 mcg/actuati on nasal spray 2023-04 2-23 00:00: 00 05-18 00:00 :00 No [id number] SPRAY 2 SPRAYS INTO EACH NOSTRIL IN THE MORNING [facility] lisinopriL 10 mg tablet 2023-04 2-16 00:00: 00 05-24 00:00 :00 No [id number] 10mg Take 1 tablet by mouth in the morning. [facility] dupilumab (DUPIXENT PEN) 300 mg/2 mL PnIj 2023-04- 00:00: 00 06-25 00:00 :00 No [id number] 300mg inject 1 Pen under the skin every 14 (fourteen) days [facility] fluticasone propionate 50 mcg/actuati on nasal spray 2023-04 00:00: 00 04-19 00:00 :00 No [id number] SPRAY 2 SPRAYS INTO EACH NOSTRIL IN THE MORNING [facility] fluticasone propionate 50 mcg/actuati on nasal spray 2023-04 0-20 00:00: 00 03-19 00:00 :00 No [id number] SPRAY 2 SPRAYS INTO EACH NOSTRIL IN THE MORNING [facility] ezetimibe 10 mg tablet 01-20 00:00: 00 Yes [id number] 10mg Take 1 tablet by mouth in the morning. [facility] tamsulosin 0.4 mg 24 hr capsule 01-20 00:00: 00 08-03 00:00 :00 No [id number] .8mg Take 2 capsules by mouth at bedtime. [facility] sucralfate 1 gram tablet 01-20 00:00: 00 08-03 00:00 :00 No [id number] TAKE 1 TABLET BY MOUTH FOUR TIMES A DAY [facility] pravastatin 40 mg tablet 01-20 00:00: 00 08-03 00:00 :00 No [id number] 40mg Take 1 tablet by mouth at bedtime. [facility] mirtazapine 7.5 mg tablet 01-20 00:00: 00 08-03 00:00 :00 No [id number] 7.5mg Take 1 tablet by mouth at bedtime. [facility] allopurinoL 100 mg tablet 01-20 00:00: 00 08-03 00:00 :00 No [id number] 100mg Take 1 tablet by mouth in the morning. [facility] fluticasone propionate 50 mcg/actuati on nasal spray 01-20 00:00: 00 02-14 00:00 :00 No [id number] 2{spray } Use 2 Sprays in each nostril in the morning. [facility] labetaloL 200 mg tablet 01-08 00:00: 00 06-09 00:00 :00 No [id number] 400mg Take 2 tablets by mouth every 12 (twelve) hours. [facility] lisinopriL 10 mg tablet 01-04 00:00: 00 04-12 00:00 :00 No [id number] 10mg Take 1 tablet by mouth in the morning. [facility] PRAVASTATIN 40 mg tablet 12-04 00:00: 00 01-20 00:00 :00 No [id number] 40mg TAKE 1 TABLET BY MOUTH EVERYDAY AT BEDTIME [facility] FUROSEMIDE 20 mg tablet 12-02 00:00: 00 Yes [id number] 20mg TAKE 1 TABLET BY MOUTH EVERY MORNING AND EVENING. [facility] labetaloL 200 mg tablet 11-16 00:00: 00 Yes [id number] 400mg Take 2 tablets by mouth every 12 (twelve) hours. [facility] mycophenola te 250 mg capsule 10-15 00:00: 00 10-21 00:00 :00 No 500mg Take 2 capsules by mouth every 12 (twelve) hours. OR PER TRANSPLANT DOCTOR. Z 94.0 Kidney transplant Generic permitted Indication s: z94.0 kidney transplant [facility] furosemide 20 mg tablet 2024-0 6-20 00:00: 00 12-02 00:00 :00 No [id number] 20mg Take 1 tablet by mouth every morning and evening. [facility] furosemide 20 mg tablet 6-11 00:00: 00 10-15 00:00 :00 No [id number] 20mg Take 1 tablet by mouth in the morning. [facility] minoxidiL 10 mg tablet 5-28 00:00: 00 09-28 00:00 :00 No [id number] TAKE 1/2 TABLET BY MOUTH TWICE A DAY [facility] furosemide 20 mg tablet 5-14 00:00: 00 10-06 00:00 :00 No [id number] 20mg Take 1 tablet by mouth as needed (swelling) . [facility] PREDNISONE 5 mg tablet 08-27 00:00: 00 10-27 00:00 :00 No [id number] 5mg TAKE 1 TABLET BY MOUTH EVERY DAY IN THE MORNING [facility] TAMSULOSIN 0.4 mg 24 hr capsule 08-27 00:00: 00 01-20 00:00 :00 No [id number] .8mg TAKE 2 CAPSULES BY MOUTH AT BEDTIME [facility] pravastatin 40 mg tablet 08-27 00:00: 00 12-04 00:00 :00 No [id number] 40mg TAKE 1 TABLET BY MOUTH EVERYDAY AT BEDTIME [facility] triamcinolo ne acetonide 0.1 % cream 08-20 00:00: 00 05-26 00:00 :00 No [id number] Apply to area(s) 2 (two) times daily. [facility] dupilumab (DUPIXENT PEN) 300 mg/2 mL PnIj 08-20 00:00: 00 03-13 05:59 :00 No [id number] 300mg inject 1 Pen under the skin every 14 (fourteen) days [facility] dupilumab (DUPIXENT PEN) 300 mg/2 mL PnIj 08-20 00:00: 00 09-03 04:59 :00 No [id number] 600mg inject 2 Pens under the skin once now for 1 dose. [facility] digoxin 125 mcg tablet 07-16 00:00: 00 08-16 04:59 :00 No [id number] .125mg Take 1 tablet by mouth in the morning for 30 days. [facility] aspirin 81 mg chewable tablet 07-15 00:00: 00 07-16 04:59 :00 No [id number] 81mg Take 1 tablet by mouth in the morning. [facility] labetaloL 200 mg tablet 07-15 00:00: 00 09-14 04:59 :00 No [id number] 400mg Take 2 tablets by mouth every 12 (twelve) hours for 60 days. [facility] lisinopriL 5 mg tablet 07-15 00:00: 00 09-14 04:59 :00 No [id number] 5mg Take 1 tablet by mouth in the morning for 60 days. [facility] ferrous sulfate 325 mg (65 mg iron) tablet 07-15 00:00: 08-15 04:59 :00 No [id number] 325mg Take 1 tablet by mouth every Friday, Friday and Friday for 30 days. [facility] acetaminoph en 325 mg tablet 07-15 00:00: 00 08-06 04:59 :00 No [id number] 650mg Take 2 tablets by mouth every 6 (six) hours as needed for Pain (scale 1-3) for up to 21 days. [facility] gabapentin 100 mg capsule 07-15 00:00: 00 08-06 04:59 :00 No [id number] 100mg Take 1 capsule by mouth in the morning and 1 capsule at noon and 1 capsule in the evening. Do all this for 21 days. [facility] methocarbam oL 500 mg tablet 07-15 00:00: 00 07-30 04:59 :00 No [id number] 500mg Take 1 tablet by mouth 4 (four) times daily for 14 days. [facility] acetaminoph en-codeine 300-15 mg tablet 07-15 00:00: 00 07-23 04:59 :00 No [id number] 1{tbl} Take 1 tablet by mouth every 4 (four) hours as needed for Pain (Pain 7-10) for up to 7 days. Indication s: acute pain [facility] furosemide 20 mg tablet 07-15 00:00: 00 07-21 04:59 :00 No [id number] 20mg Take 1 tablet by mouth every morning and evening for 5 days. [facility] spironolact one 25 mg tablet 07-15 00:00: 00 07-21 04:59 :00 No [id number] 25mg Take 1 tablet by mouth in the morning for 5 days. [facility] ferrous sulfate tablet 325 mg 07-13 14:00: 00 Yes 325mg 325 mg, Oral, QMON// FRI, First dose on Fri07/14/23 at 0900, Until Discontinu ed, Routine [facility] digoxin (LANOXIN) tablet 125 mcg 07-11 14:00: 00 08-10 13:59 :00 No 125ug 125 mcg, Oral, DAILY, 30 doses, First dose on 07/12/23 at 0900, Last dose on 08/10/23 at 0900, Routine [facility] digoxin (LANOXIN) injection 500 mcg 07-11 02:00: 00 07-11 01:52 :00 No 500ug 500 mcg, Intravenou s, ONCE NOW, 1 dose, On Fri07/11/23 at 2100, Routine [facility] ondansetron (ZOFRAN (PF)) injection 4 mg 07-10 18:07: 07 Yes 4mg 4 mg, Slow IV Push, Q6HPRN, Starting on Fri07/11/23 at 1307, Until Discontinu ed, Routine, Nausea and Vomiting (N/V) [facility] sodium phosphates (READY-TO-U SE ENEMA) 19-7 gram/118 mL enema 1 Enema 07-10 18:07: 06 Yes 1{enema } 1 Enema, Rectal, PRN - SEE INSTRUCTIO NS, 1 dose, Starting on Fri07/11/23 at 1307, Until Discontinu ed, Routine, Constipati on, For bowel movemnet [facility] bisacodyL (DULCOLAX) suppository 10 mg 07-10 18:07: 06 Yes 10mg 10 mg, Rectal, PRN - SEE INSTRUCTIO NS, 1 dose, Starting on Fri07/11/23 at 1307, Until Discontinu ed, Routine, Constipati on, For bowel movent [facility] acetaminoph en (TYLENOL) tablet 650 mg 07-10 18:07: 06 Yes 650mg 650 mg, Oral, Q6HPRN, Starting on Fri07/11/23 at 1307, Until Discontinu ed, Routine, Temp > 38 C [facility] acetaminoph en-codeine (TYLENOL #3) 300-30 mg tablet 2 tablet 07-10 18:07: 06 Yes 2{tbl} 2 tablet, Oral, Q4HPRN, Starting on Fri07/11/23 at 1307, Until Discontinu ed, Routine, Pain (scale 7-10) [facility] spironolact one (ALDACTONE) tablet 25 mg 07-10 14:00: 00 Yes 25mg 25 mg, Oral, DAILY, First dose on Fri07/11/23 at 0900, Until Discontinu ed, Routine [facility] gabapentin (NEURONTIN) capsule 100 mg 07-09 19:00: 00 Yes 100mg 100 mg, Oral, TID, First dose (after last modificati on) on Fri07/10/23 at 1400, Until Discontinu ed, Routine [facility] methocarbam oL (ROBAXIN) injection 1,000 mg 07-09 19:00: 00 Yes 1000mg 1,000 mg, Slow IV Push, Q8H, First dose (after last modificati on) on Fri07/10/23 at 1400, Until Discontinu ed, Administer over 3-5 Minutes [facility] lisinopriL (PRINIVIL,Z ESTRIL) tablet 10 mg 07-09 14:00: 00 Yes 10mg 10 mg, Oral, DAILY, First dose on Fri07/10/23 at 0900, Until Discontinu ed, Routine [facility] furosemide (LASIX) tablet 20 mg 07-09 14:00: 00 Yes 20mg 20 mg, Oral, QAM+PM, First dose on Fri07/10/23 at 0900, Until Discontinu ed, Routine [facility] labetaloL (NORMODYNE) tablet 400 mg 07-09 13:00: 00 Yes 400mg 400 mg, Oral, Q12H, First dose (after last modificati on) on Fri07/10/23 at 0800, Until Discontinu ed, Routine [facility] acetaminoph en-codeine (TYLENOL #2) 300-15 mg tablet 2 tablet 07-09 12:41: 49 Yes 2{tbl} 2 tablet, Oral, Q4HPRN, Starting on Fri07/10/23 at 0741, Until Discontinu ed, Routine, Pain (scale 4-6) [facility] acetaminoph en-codeine (TYLENOL #2) 300-15 mg tablet 1 tablet 07-09 12:41: 02 Yes 1{tbl} 1 tablet, Oral, Q4HPRN, Starting on Fri07/10/23 at 0741, Until Discontinu ed, Routine, Pain (scale 1-3) [facility] lactated ringers IV infusion 1,000 mL 07-09 10:45: 00 07-14 20:58 :57 No 1000mL at 50 mL/hr, 1,000 mL, IV Infusion, CONTINUOUS , Starting on Fri07/10/23 at 0545, Until Fri07/15/23 at 1558, Routine [facility] HYDROcodone -acetaminop hen (NORCO) 10-325 mg tablet 1 tablet 07-09 09:38: 06 07-09 11:55 :00 No 1{tbl} 1 tablet, Oral, Q6HPRN, 1 dose, Starting on Fri07/10/23 at 0438, Until Discontinu ed, Routine, Pain (scale 4-6) [facility] FENTanyl 1000 mcg/100 mL 0.9% NaCl 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
Loc kout Interval: 7 Minutes
Basal Rate: 0 mcg/hr
Four Hour Dose Limit: 250 mcg
IV Infusion, 100 mL, CONTINUOUS , Starting on Fri07/09/23 at 2030, Until Fri07/10/23 at 1454 [facility] mycophenola te (CELLCEPT) capsule 250 mg 07-09 01:00: 00 Yes 250mg 250 mg, Oral, Q12H, First dose (after last modificati on) on Fri07/09/23 at 2000, Until Discontinu ed, Routine [facility] HYDROcodone -acetaminop hen (NORCO) 10-325 mg tablet 1 tablet 07-08 22:36: 08 07-09 05:23 :00 No 1{tbl} 1 tablet, Oral, Q6HPRN, 2 doses, Starting on Fri07/09/23 at 1736, Until Discontinu ed, Routine, Pain (scale 4-6) [facility] labetaloL (NORMODYNE) tablet 100 mg 07-08 20:30: 00 07-09 12:15 :35 No 100mg 100 mg, Oral, Q12H, First dose (after last modificati on) on Fri07/09/23 at 1530, Until Discontinu ed, Routine [facility] acetaminoph en (TYLENOL) tablet 650 mg 07-08 17:00: 00 Yes 650mg 650 mg, Oral, Q6H, First dose (after last modificati on) on Fri07/09/23 at 1200, Until Discontinu ed, NAKUL [facility] furosemide (LASIX) injection 40 mg 07-08 16:00: 00 07-08 17:36 :00 No 40mg 40 mg, Slow IV Push, ONCE, 1 dose, On Fri07/09/23 at 1100, Routine [facility] sodium phosphate 15 mmol in NaCl 0.9% (NS) 250 mL piggyback 07-08 15:00: 00 07-08 19:19 :00 No 15mmol 15 mmol, IV Piggyback, ONCE, 1 dose, On Fri07/09/23 at 1000, Administer over 4 Hours, 250 mL [facility] sennosides (SENOKOT) tablet 8.6 mg 07-08 14:00: 00 Yes 8.6mg 8.6 mg, Oral, DAILY, First dose on Fri07/09/23 at 0900, Until Discontinu ed, Routine [facility] docusate (COLACE) capsule 100 mg 07-08 14:00: 00 Yes 100mg 100 mg, Oral, DAILY, First dose on Fri07/09/23 at 0900, Until Discontinu ed, Routine [facility] heparin (porcine) injection 5,000 Units 07-08 13:00: 00 Yes 5000U 5,000 Units, Subcutaneo us, Q12H, First dose on Fri07/09/23 at 0800, Until Discontinu ed, Routine [facility] propofoL IV infusion 07-08 03:03: 18 [...] be discarded after 12 hours
[facility] thrombin (recombinan t) (RECOTHROM) topical solution 07-08 02:03: 00 07-08 02:27 :25 No PRN, Starting on Fri07/08/23 at 2102, Until Fri07/08/23 at 2126, Routine, Intra-op [facility] albumin (ALBUTEIN 5 %) 5 % [...] period without an adequate hemodynami c response. [facility] heparin 1,000 unit/mL 30,000 Units in NaCl 0.9% (NS) 1,000 mL OR irrigation 07-08 00:44: 00 07-08 02:27 :25 No PRN, Starting on Fri07/08/23 at 1944, [facility] FENTanyl PF (SUBLIMAZE (PF)) injection 50 mcg 07-08 00:30: 00 07-07 23:47 :00 No 50ug 50 mcg, Slow IV Push, ONCE, 1 dose, On Fri07/08/23 at 1930, Routine [facility] dexMEDEtomi dine 200 mcg in 0.9 [...] at maximum allowed dose, contact prescriber .
[facility] niCARdipine (CARDENE I.V.) 40 mg in [...] at maximum allowed dose, contact prescriber .
[facility] aspirin chewable tablet 81 mg 07-07 23:30: 00 Yes 81mg 81 mg, Oral, DAILY, First dose on Fri07/08/23 at 1830, Until Discontinu ed, Routine [facility] protamine 25 mg in D5W 50 [...] unfraction ated heparin (max dose 50 mg). [facility] Sliding Scale Insulin - Lispro (HUMALOG) 07-07 21:00: 00 Yes Subcutaneo us, Q4H, First dose on Fri07/08/23 at 1600, Until Discontinu ed, Routine [facility] albumin (ALBUTEIN 5 %) 5 % [...] period without an adequate hemodynami c response. [facility] D5W-LR IV infusion 1,000 mL 07-07 19:15: 00 07-09 09:31 :04 No 1000mL at 50 mL/hr, IV Infusion, CONTINUOUS , Starting on Fri07/08/23 at 1415, Until Peg 07/10/23 at 0431, NAKUL [facility] furosemide (LASIX) injection 20 mg 07-07 19:09: 15 Yes 20mg 20 mg, IV Push, PRN, 2 doses, Starting on Fri07/08/23 at 1409, Until Discontinu ed, NAKUL, Pressure Maintenanc e [facility] NaCl 0.9% (NS) bolus infusion 250 mL 07-07 19:09: 15 Yes 250mL at 999 mL/hr, 250 mL, IV Infusion, PRN - SEE INSTRUCTIO NS, 3 doses, Starting on Fri07/08/23 at 1409, Until Discontinu ed, NAKUL [facility] dextrose 10% (D10W) bolus infusion 250 [...] blood glucose is < 80 mg/dL, repeat.
[facility] glucagon (GLUCAGEN DIAGNOSTIC KIT) injection 1 mg 07-07 19:09: 15 Yes 1mg 1 mg, Intramuscu lar, PRN, Starting on Fri07/08/23 at 1409, Until Discontinu ed, NAKUL, Blood Glucose < or = 70 mg/dL and patient is NPO, unable to swallow or has mental changes. [facility] dextrose 50 % in water (D50W) injection 25 mL 07-07 19:09: 15 Yes 25mL 25 mL, Slow IV Push, PRN, Starting on Fri07/08/23 at 1409, Until Discontinu ed, NAKUL, Blood Glucose < or = 70 mg/dL and patient is NPO, unable to swallow or has mental status changes. [facility] NORepinephr ine 4 mg in 0.9% [...] at maximum allowed dose, contact prescriber .
[facility] naloxone (NARCAN) injection 0.4 mg 07-07 19:09: 15 Yes .4mg 0.4 mg, Slow IV Push, PRN, Starting on Fri07/08/23 at 1409, Until Discontinu ed, Routine, Sedation/R espiratory Depression [facility] propofoL IV infusion 07-07 19:09: 15 [...] vials should be discarded after 12 hours
[facility] heparin 1,000 unit/mL 2,500 Units, papaverine 60 mg in NaCl 0.9% (NS) 100 mL OR irrigation 07-07 12:52: 00 07-07 19:08 :14 No PRN, Starting on Fri07/08/23 at 0752, Intra-op [facility] heparin 1,000 unit/mL 5,000 Units, papaverine 60 mg in NaCl 0.9% (NS) 500 mL OR irrigation 07-07 12:51: 00 07-07 19:08 :14 No PRN, Starting on Fri07/08/23 at 0751, Intra-op [facility] heparin 1,000 unit/mL 30,000 Units in NaCl 0.9% (NS) 1,000 mL OR irrigation 07-07 12:51: 00 07-07 19:08 :14 No PRN, Starting on Fri07/08/23 at 0751, Intra-op [facility] ceFAZolin (ANCEF) 1 g in NaCl 0.9% (NS) 1,000 mL OR irrigation 07-07 12:51: 00 07-07 19:08 :14 No PRN, Starting on Fri07/08/23 at 0751, Intra-op [facility] thrombin (recombinan t) (RECOTHROM) topical solution 07-07 12:50: 00 07-07 19:08 :14 No PRN, Starting on Fri07/08/23 at 0750, Until Fri07/08/23 at 1408, Routine, Intra-op [facility] metoprolol tartrate (LOPRESSOR) tablet 25 mg 07-07 10:00: 00 07-07 21:59 :00 No 25mg 25 mg, Oral, ONCE, 1 dose, On Fri07/08/23 at 0500, Routine [facility] magnesium sulfate in water 4 gram/50 mL (8 %) IV Piggyback 4 g 07-07 06:00: 00 07-07 07:43 :00 No 4g 4 g, IV Piggyback, at 25 mL/hr Administer over 120 Minutes, ONCE, 1 dose, On Fri07/08/23 at 0100, Routine [facility] sodium phosphates (READY-TO-U SE ENEMA) 19-7 gram/118 mL enema 1 Enema 07-07 02:00: 00 07-07 13:59 :00 No 1{enema } 1 Enema, Rectal, ONCE, 1 dose, On Fri07/07/23 at 2100, Routine [facility] bisacodyL (DULCOLAX) suppository 10 mg 07-07 00:00: 00 07-07 11:59 :00 No 10mg 10 mg, Rectal, ONCE, 1 dose, On Fri07/07/23 at 1900, Routine [facility] hydrALAZINE (APRESOLINE ) tablet 10 mg 07-06 16:30: 41 Yes 10mg 10 mg, Oral, Q6HPRN, Starting on Fri07/07/23 at 1130, Until Discontinu ed, Routine, Hypertensi on [facility] magnesium sulfate in water 4 gram/50 mL (8 %) IV Piggyback 4 g 07-06 13:15: 00 07-06 16:46 :00 No 4g 4 g, IV Piggyback, at 25 mL/hr Administer over 120 Minutes, ONCE, 1 dose, On Fri07/07/23 at 0815, Routine [facility] chlorhexidi ne (WESLEY-HEX) 4 % liquid 07-06 12:15: 00 07-06 12:15 :00 No Topical, ONCE, 1 dose, On Fri07/07/23 at 0715, Routine [facility] iodixanol (VISIPAQUE 320-100 mL) injection 07-03 22:39: 33 07-03 22:59 :18 No ONCE INTRA PROCEDURE, Starting on Fri07/04/23 at 1639, Until Fri07/04/23 at 1659, Routine, CV Intraproce dure [facility] nitroglycer in (TRIDIL) 2 mg in 10 mL D5W for Cardiac Cath 07-03 22:30: 07 07-03 22:59 :18 No ONCE INTRA PROCEDURE, Starting on Fri07/04/23 at 1630, Until Fri07/04/23 at 1659, Routine, CV Intraproce dure [facility] NaCl 0.9% (NS) bolus infusion 07-03 22:25: 00 07-03 22:59 :17 No CONTINUOUS PRN, Starting on Fri07/04/23 at 1625, Until Fri07/04/23 at 1659, STAT, CV Intraproce dure [facility] lidocaine 1% (PF) (XYLOCAINE) injection 07-03 22:06: 36 07-03 22:59 :18 No ONCE INTRA PROCEDURE, Starting on Fri07/04/23 at 1606, Until Fri07/04/23 at 1659, Routine, CV Intraproce dure [facility] FENTanyl PF (SUBLIMAZE (PF)) injection 07-03 21:47: 15 07-03 22:59 :18 No ONCE INTRA PROCEDURE, Starting on Fri07/04/23 at 1547, Until Fri07/04/23 at 1659, Routine, CV Intraproce dure [facility] midazolam (VERSED) injection 07-03 21:47: 10 07-03 22:59 :18 No ONCE INTRA PROCEDURE, Starting on Fri07/04/23 at 1547, Until Fri07/04/23 at 1659, Routine, CV Intraproce dure [facility] NaCl 0.9% (NS) IV infusion 500 mL 07-03 10:00: 00 07-03 08:56 :57 No 500mL at 75 mL/hr, IV Infusion, ONCE, 1 dose, On Fri07/04/23 at 0400, Routine [facility] mirtazapine (REMERON) tablet 7.5 mg 07-03 03:00: 00 Yes 7.5mg 7.5 mg, Oral, QHS, First dose on Fri07/03/23 at 2100, Until Discontinu ed, Routine [facility] atorvastati n (LIPITOR) tablet 40 mg 07-03 03:00: 00 Yes 40mg 40 mg, Oral, QHS, First dose on Fri07/03/23 at 2100, Until Discontinu ed, Routine [facility] tamsulosin (FLOMAX) capsule 0.8 mg 07-03 03:00: 00 Yes .8mg 0.8 mg, Oral, QHS, First dose on Fri07/03/23 at 2100, Until Discontinu ed, Routine [facility] tacrolimus (PROGRAF) capsule 5 mg 07-03 02:00: 00 Yes 5mg 5 mg, Oral, Q12H, First dose on Fri07/03/23 at 2000, Until Discontinu ed, Routine
aboriginal community council member approving Restricted medication : [facility] sulfur hexafluorid e microsphr (LUMASON) injection 5 mL 07-02 17:00: 00 07-02 17:00 :00 No [id number] 5mL 5 mL, Intravenou s, ONCE, 1 dose, On Fri07/03/23 at 1100, Routine [facility] isosorbide mononitrate (IMDUR) 24 hr tablet 30 mg 07-02 16:45: 00 07-06 12:15 :27 No 30mg 30 mg, Oral, DAILY, First dose on Fri07/03/23 at 1045, Until Discontinu ed, Routine [facility] aspirin chewable tablet 81 mg 07-02 15:00: 00 Yes 81mg 81 mg, Oral, DAILY, First dose on Fri07/03/23 at 0900, Until Discontinu ed, Routine [facility] sennosides- docusate sodium (SENOKOT-S) 8.6-50 mg per tablet 1 tablet 07-02 15:00: 00 Yes 1{tbl} 1 tablet, Oral, DAILY, First dose on Fri07/03/23 at 0900, Until Discontinu ed, Routine [facility] predniSONE (DELTASONE) tablet 5 mg 07-02 15:00: 00 Yes 5mg 5 mg, Oral, DAILY, First dose on Fri07/03/23 at 0900, Until Discontinu ed, Routine [facility] pantoprazol e (PROTONIX) EC tablet 40 mg 07-02 15:00: 00 Yes 40mg 40 mg, Oral, DAILY, First dose on Peg 07/03/23 at 0900, Until Discontinu ed [facility] fluticasone propionate 50 mcg/actuati on nasal spray 2 [place] 07-02 15:00: 00 Yes 2{spray } 2 [place], Nasal, DAILY, First dose on Peg 07/03/23 at 0900, Until Discontinu ed, Routine [facility] ezetimibe (ZETIA) tablet 10 mg 07-02 15:00: 00 Yes 10mg 10 mg, Oral, DAILY, First dose on Fri07/03/23 at 0900, Until Discontinu ed, Routine [facility] allopurinoL (ZYLOPRIM) tablet 100 mg 07-02 15:00: 00 Yes 100mg 100 mg, Oral, DAILY, First dose on Peg 07/03/23 at 0900, Until Discontinu ed, Routine [facility] lisinopriL (PRINIVIL,Z ESTRIL) tablet 10 mg 07-02 15:00: 00 07-06 12:15 :27 No 10mg 10 mg, Oral, DAILY, First dose on Peg 07/03/23 at 0900, Until Discontinu ed, Routine [facility] sucralfate (CARAFATE) tablet 1 g 07-02 14:00: 00 Yes 1g 1 g, Oral, QID, First dose on Peg 07/03/23 at 0800, Until Discontinu ed, Routine [facility] mycophenola te (CELLCEPT) capsule 500 mg 07-02 14:00: 00 Yes 500mg 500 mg, Oral, Q12H, First dose on Peg 07/03/23 at 0800, Until Discontinu ed, [facility]ine [facility] fluticasone propionate (FLOVENT HFA) 220 mcg/actuati on inhaler 1 Puff 07-02 14:00: 00 Yes 1{puff} 1 Puff, Inhalation , Q12H, First dose on Peg 07/03/23 at 0800, Until Discontinu ed, Routine
Is this order for a patient with suspected or confirmed COVID-19 infection? No [facility] minoxidiL (LONITEN) tablet 5 mg 07-02 14:00: 00 07-06 15:18 :50 No 5mg 5 mg, Oral, BID, First dose on Peg 07/03/23 at 0800, Until Discontinu ed, Routine [facility] labetaloL (NORMODYNE) tablet 400 mg 07-02 14:00: 00 07-06 12:15 :27 No 400mg 400 mg, Oral, Q12H, First dose on Peg 07/03/23 at 0800, Until Discontinu ed, Routine [facility] KCL (KLOR-CON M20) tablet 40 mEq 07-02 13:45: 00 07-02 15:22 :00 No 40meq 40 mEq, Oral, ONCE, 1 dose, On Peg 07/03/23 at 0745, Routine [facility] magnesium sulfate in water 4 gram/50 mL (8 %) IV Piggyback 4 g 07-02 12:57: 00 07-02 17:15 :00 No 4g 4 g, IV Piggyback, at 25 mL/hr Administer over 120 Minutes, ONCE, 1 dose, On Peg 07/03/23 at 0700, Routine [facility] KCL (KLOR-CON M20) tablet 40 mEq 07-02 12:00: 00 07-02 11:21 :00 No 40meq 40 mEq, Oral, ONCE, 1 dose, On Peg 07/03/23 at 0600, Routine [facility] furosemide (LASIX) tablet 40 mg 07-02 06:16: 00 07-02 06:32 :00 No 40mg 40 mg, Oral, ONCE, 1 dose, On Peg 07/03/23 at 0030, Routine [facility] furosemide (LASIX) tablet 20 mg 07-02 05:57: 31 07-06 12:15 :27 No 20mg 20 mg, Oral, BIDPRN, Starting on Fri07/02/23 at 2357, Until Fri07/07/23 at 0715, Routine, swelling [facility] triamcinolo ne acetonide (TRIDERM) 0.1 % cream 07-02 05:48: 02 Yes Topical, BIDPRN, Starting on Fri07/02/23 at 2348, Until Discontinu ed, Routine, Dermatitis /Rash [facility] nitroglycer in (NITROSTAT) sublingual tablet 0.4 mg 07-02 05:47: 04 Yes .4mg 0.4 mg, Sublingual , Q5MIN PRN, Starting on Fri07/02/23 at 2347, Until Discontinu ed, Routine, Chest pain [facility] docusate (COLACE) capsule 100 mg 07-02 05:45: 29 Yes 100mg 100 mg, Oral, QDAILYPRN, Starting on Fri07/02/23 at 2345, Until Discontinu ed, Routine, Constipati on [facility] acetaminoph en (TYLENOL) tablet 650 mg 07-02 05:42: 43 Yes 650mg 650 mg, Oral, Q6HPRN, Starting on Fri07/02/23 at 2342, Until Discontinu ed, Routine, Pain (scale 1-3) [facility] aspirin tablet 325 mg 07-02 03:00: 00 07-02 01:59 :00 No 325mg 325 mg, Oral, ONCE, 1 dose, On Fri07/02/23 at 2100, STAT [facility] HEPARIN SODIUM (PORCINE) 1,000 UNIT/ML BOLUS ACS ORDER SET 07-02 02:45: 00 07-02 02:50 :00 No 4000U 4,000 Units, IV Push, ONCE, 1 dose, On Fri07/02/23 at 2045, NAKUL [facility] heparin 25,000 Units/250 mL (Premixed Bag) in 0.45 % NS 07-02 02:41: 25 Yes 0U/h 0-2,750 Units/hr (0-27.5 mL/hr), IV Infusion, TITRATE, Parameters in Admin. Instr., Starting on Fri07/02/23 at 2041
In itiate dosing:&nb sp; & nbsp;&nbsp ; [...] Rang e, Dosing and Testing: &nbs p;FOR [facility], [facility], AND [facility] ONLY &nbs p; - aPTT < 35: [...] ADJUST INITIAL BOLUS OR INITIAL INFUSION RATE.
[facility] heparin (1,000 unit/mL, 10 mL vial) for Rebolusing 07-02 02:41: 18 Yes 3000U FOR REBOLUSING , Starting on Fri07/02/23 at 2040, Until Discontinu ed, Routine
Dosing based on aPPT testing parameters (refer to continuous heparin drip order).
[facility] nitroglycer in (NITROL) 2 % ointment 0.5 Inch 07-02 02:00: 00 07-02 02:00 :00 No .5[in_u s] 0.5 Inch, Transderma l (Apply To Skin), ONCE, 1 dose, On Fri07/02/23 at 2000, NAKUL [facility] fluorescein (FLUORESCIT E) 500 mg/5 mL (10 %) injection 5 mL 05-26 19:26: 00 05-26 19:26 :00 No [id number] 5mL 5 mL, Intravenou s, ONCE PRN, 1 dose, Starting on Fri05/26/23 at 1326, Until Fri05/26/23 at 1326, Routine [facility] tacrolimus (PROGRAF) 1 mg capsule 05-26 00:00: 00 06-24 00:00 :00 No [id number] 5mg Take 5 capsules by mouth every 12 (twelve) hours. Take 5 tablets in the morning and 5 tablets in the evening Diagnosis: Z 94.0 generic permitted [facility] lisinopriL 5 mg tablet 05-26 00:00: 00 07-15 00:00 :00 No [id number] 10mg Take 2 tablets by mouth in the morning. [facility] bevacizumab (AVASTIN) injection 1.25 mg 05-02 16:46: 00 05-02 16:46 :00 No [id number] 1.25mg 1.25 mg, Intravitre al, ONCE PRN, 1 dose, Starting on Fri05/02/23 at 1046, Until Fri05/02/23 at 1046, Routine [facility] labetaloL 100 mg tablet 2022-04 00:00: 00 07-15 00:00 :00 No [id number] Take 300mg and 100mg together for a total of 400mg BID [facility] labetaloL 300 mg tablet 2022-04 00:00: 07-15 00:00 :00 No [id number] Take 300mg and 100mg together for a total of 400mg BID [facility] bevacizumab (AVASTIN) injection 1.25 mg 2022-04 17:27: 00 03-28 17:27 :00 No [id number] 1.25mg 1.25 mg, Intravitre al, ONCE PRN, 1 dose, Starting on Fri03/28/23 at 1127, Until Fri03/28/23 at 1127, Routine [facility] sucralfate 1 gram tablet 2022-04 00:00: 00 01-20 00:00 :00 No [id number] TAKE 1 TABLET BY MOUTH FOUR TIMES A DAY [facility] valGANciclo vir 450 mg tablet 2022-04 00:00: 00 01-04 00:00 :00 No 450mg Take 1 tablet by mouth in the morning. [facility] bevacizumab (AVASTIN) injection 1.25 mg 2022-04 16:26: 00 02-24 16:26 :00 No [id number] 1.25mg 1.25 mg, Intravitre al, ONCE PRN, 1 dose, Starting on Fri02/24/23 at 1126, Until Fri02/24/23 at 1126, Routine [facility] mirtazapine 7.5 mg tablet 2022-04 00:00: 00 01-20 00:00 :00 No [id number] 7.5mg Take 1 tablet by mouth at bedtime. [facility] nitroglycer in 0.4 mg sublingual tablet 2022-04 00:00: 00 07-15 00:00 :[id number] 1 TABLET UNDER THE TONGUE EVERY 5 MINUTES NEEDED FOR CHEST PAIN FOR 3 DOSES. IF NO RELIEF, CALL 911. [facility] lisinopriL 5 mg tablet 2022-04 00:00: 00 05-26 00:00 :00 No [id number] 5mg Take 1 tablet by mouth in the morning. [facility] cephALEXin (KEFLEX) 500 mg capsule 2022-04 00:00: 00 03-02 04:59 :00 No [id number] 500mg Take 1 capsule by mouth in the morning and 1 capsule at noon and 1 capsule in the evening. Do all this for 10 days. [facility] fluticasone propionate 50 mcg/actuati on nasal spray 01-19 00:00: 00 01-20 00:00 :00 No [id number] 2{spray } Use 2 Sprays in each nostril in the morning. [facility] omeprazole 40 mg capsule 01-13 00:00: 00 01-20 00:00 :00 No [id number] 40mg Take 1 capsule by mouth in the morning. [facility] ezetimibe 10 mg tablet 01-13 00:00: 00 01-20 00:00 :00 No [id number] 10mg Take 1 tablet by mouth in the morning. [facility] allopurinoL 100 mg tablet 01-13 00:00: 00 01-20 00:00 :00 No [id number] 100mg Take 1 tablet by mouth in the morning. [facility] fluticasone propionate 220 mcg/actuati on inhaler 01-13 00:00: 00 01-20 00:00 :00 No [id number] INHALE 1 PUFF BY MOUTH EVERY 12 (TWELVE) HOURS. RINSE MOUTH AFTER EACH USE. [facility] labetaloL 200 mg tablet 01-13 00:00: 00 04-27 00:00 :00 No [id number] 400mg Take 2 tablets by mouth every 12 (twelve) hours. [facility] fluticasone propionate 50 mcg/actuati on nasal spray 01-13 00:00: 00 01-19 00:00 :00 No [id number] 2{spray } Use 2 Sprays in each nostril in the morning. [facility] triamcinolo ne acetonide 0.1 % cream 12-23 00:00: 00 Yes [id number] Apply to area(s) 2 (two) times daily as needed for Dermatitis /Rash. [facility] dupilumab (DUPIXENT PEN) 300 mg/2 mL PnIj 12-23 00:00: 00 01-04 00:00 :00 No [id number] 300mg inject 1 Pen under the skin every 2 (two) weeks. [facility] fluticasone propionate 220 mcg/actuati on inhaler 11-11 00:00: 00 01-13 00:00 :00 No [id number] INHALE 1 PUFF BY MOUTH EVERY 12 (TWELVE) HOURS. RINSE MOUTH AFTER EACH USE. [facility] minoxidiL 10 mg tablet 09-20 00:00: 00 09-22 00:00 :00 No [id number] TAKE 0.5 TABLETS BY MOUTH 2 TIMES DAILY. [facility] labetaloL 200 mg tablet 09-03 00:00: 00 01-13 00:00 :00 No [id number] 400mg Take 2 tablets by mouth every 12 (twelve) hours. Please keep follow up for refills [facility] tacrolimus (PROGRAF) 1 mg capsule 08-26 00:00: 00 Yes [id number] Take 5 tablets in the morning and 4 tablets in the evening Diagnosis: Z 94.0 generic permitted [facility] mycophenola te 250 mg capsule 08-26 00:00: 00 10-15 00:00 :00 No 500mg Take 2 capsules by mouth every 12 (twelve) hours. OR PER TRANSPLANT DOCTOR. Z 94.0 Kidney transplant Generic permitted Indication s: z94.0 kidney transplant [facility] predniSONE 5 mg tablet 08-26 00:00: 00 08-27 00:00 :00 No [id number] 5mg Take 1 tablet by mouth in the morning. [facility] tacrolimus (PROGRAF) 1 mg capsule 08-26 00:00: 00 05-26 00:00 :00 No [id number] Take 5 tablets in the morning and 4 tablets in the evening Diagnosis: Z 94.0 generic permitted [facility] mycophenola te 250 mg capsule 11 00:00: 00 08-26 00:00 :00 No 500mg Take 2 capsules by mouth every 12 (twelve) hours. OR PER TRANSPLANT DOCTOR. Z 94.0 Kidney transplant Generic permitted Indication s: z94.0 kidney transplant [facility] fluticasone propionate 50 mcg/actuati on nasal spray 08-05 00:00: 00 01-13 00:00 :00 No [id number] 2{spray } Use 2 Sprays in each nostril in the morning. [facility] pravastatin 40 mg tablet 07-30 00:00: 00 08-27 00:00 :00 No [id number] 40mg Take 1 tablet by mouth at bedtime. [facility] nitroglycer in 0.4 mg sublingual tablet 07-30 00:00: 02-19 00:00 :[id number] 1 TABLET UNDER THE TONGUE EVERY 5 MINUTES NEEDED FOR CHEST PAIN FOR 3 DOSES. IF NO RELIEF, CALL 911. [facility] fluticasone propionate (FLOVENT HFA) 220 mcg/actuati on inhaler 07-30 00:00: 00 11-11 00:00 :00 No [id number] INHALE 1 PUFF EVERY 12 (TWELVE) HOURS. Rinse mouth after each use. [facility] fluticasone propionate 50 mcg/actuati on nasal spray 07-30 00:00: 00 08-05 00:00 :00 No [id number] 2{spray } Use 2 Sprays in each nostril in the morning. [facility] MINOXIDIL 10 mg tablet 07-25 00:00: 00 09-20 00:00 :00 No [id number] TAKE 0.5 TABLETS BY MOUTH 2 TIMES DAILY. [facility] fluocinonid e 0.05 % cream 07-23 00:00: 00 Yes [id number] Apply to area(s) 2 (two) times daily. [facility] dupilumab (DUPIXENT PEN) 300 mg/2 mL PnIj -28 00:00: 00 12-23 00:00 :00 No [id number] 300mg inject 1 Pen under the skin every 2 (two) weeks. [facility] tacrolimus (PROGRAF) 1 mg capsule - 00:00: 00 08-26 00:00 :00 No [id number] Take 5 tablets in the morning and 4 tablets in the evening Diagnosis: Z 94.0 generic permitted [facility] TAMSULOSIN 0.4 mg 24 hr capsule 07-22 00:00: 00 08-27 00:00 :00 No [id number] .8mg TAKE 2 CAPSULES BY MOUTH AT BEDTIME [facility] MIRTAZAPINE 7.5 mg tablet 07-22 00:00: 00 02-19 00:00 :00 No [id number] TAKE 1 TABLET BY MOUTH EVERYDAY AT BEDTIME [facility] LISINOPRIL 5 mg tablet 3-06 00:00: 00 02-19 00:00 :00 No TAKE 1 TABLET BY MOUTH EVERY DAY [facility] dupilumab (DUPIXENT PEN) 300 mg/2 mL PnIj 2-16 00:00: 00 07-23 00:00 :00 No [id number] 300mg inject 1 Pen under the skin every 2 (two) weeks. [facility] docusate (COLACE) 100 mg capsule -10 00:00: 00 01-20 00:00 :00 No [id number] 100mg Take 1 capsule by mouth once daily as needed for Constipati on. [facility] furosemide 20 mg tablet -10 00:00: 00 09-08 00:00 :00 No [id number] 20mg Take 1 tablet by mouth as needed (swelling) . [facility] allopurinoL 100 mg tablet 1-10 00:00: 00 01-13 00:00 :00 No [id number] 100mg Take 1 tablet by mouth in the morning. [facility] fluticasone propionate (FLOVENT HFA) 220 mcg/actuati on inhaler 05-07 00:00: 00 07-30 00:00 :00 No [id number] INHALE 1 PUFF EVERY 12 (TWELVE) HOURS. Rinse mouth after each use. [facility] nitroglycer in 0.4 mg sublingual tablet 05-07 00:00: 00 07-30 00:00 :[id number] 1 TABLET UNDER THE TONGUE EVERY 5 MINUTES NEEDED FOR CHEST PAIN FOR 3 DOSES. IF NO RELIEF, CALL 911. [facility] fluocinonid e 0.05 % cream 05-07 00:00: 00 07-23 00:00 :00 No [id number] Apply to area(s) 2 (two) times daily. [facility] furosemide 20 mg tablet 2021-04 00:00: 05-07 00:00 :00 No [id number] 20mg Take 1 tablet by mouth as needed (swelling) . [facility] iopamidol (ISOVUE 370-500 mL) injection 100 mL 2021-04 16:45: 00 04-15 15:46 :00 No [id number] 100mL 100 mL, Intravenou s, ONCE, 1 dose, On Fri04/15/22 at 1045, Routine [facility] tacrolimus (PROGRAF) 1 mg capsule 2021-04 00:00: 00 07-23 00:00 :00 No [id number] Take 5 tablets in the morning and 4 tablets in the evening Diagnosis: Z 94.0 generic permitted [facility] PRAVASTATIN 40 mg tablet 2021-04 00:00: 00 07-30 00:00 :00 No [id number] TAKE 1 TABLET BY MOUTH EVERYDAY AT BEDTIME [facility] OMEPRAZOLE 40 mg capsule 2021-04 00:00: 00 01-13 00:00 :00 No [id number] TAKE 1 CAPSULE BY MOUTH EVERY DAY [facility] MIRTAZAPINE 7.5 mg tablet 2021-04 00:00: 00 07-22 00:00 :00 No [id number] TAKE 1 TABLET BY MOUTH EVERYDAY AT BEDTIME [facility] clobetasoL 0.05 % cream 2021-04 1- 00:00: 00 10-06 00:00 :00 No [id number] Apply to area(s) 2 (two) times daily. Only to itchy areas [facility] EZETIMIBE 10 mg tablet 2021-04 0-14 00:00: 00 01-13 00:00 :00 No [id number] TAKE 1 TABLET BY MOUTH EVERY DAY [facility] sucralfate 1 gram tablet 2021-04 0-10 00:00: 00 03-17 00:00 :00 No [id number] TAKE 1 TABLET BY MOUTH 4 TIMES A DAY [facility] allopurinoL 100 mg tablet 2021-04 0- 00:00: 00 05-07 00:00 :00 No [id number] 100mg Take 1 tablet by mouth in the morning. [facility] nitroglycer in 0.4 mg sublingual tablet 2021-04 0 00:00: 00 05-07 00:00 :[id number] 1 TABLET UNDER THE TONGUE EVERY 5 MINUTES NEEDED FOR CHEST PAIN FOR 3 DOSES. IF NO RELIEF, CALL 911. [facility] triamcinolo ne 0.5 % cream 2021-04 0-10 00:00: 00 05-07 00:00 :00 No [id number] Apply to area(s) 3 (three) times daily. [facility] furosemide 20 mg tablet 2021-04 0-03 00:00: 00 04-25 00:00 :00 No [id number] 20mg Take 1 tablet by mouth as needed (swelling) . [facility] fluocinonid e 0.05 % cream 9-22 00:00: 00 05-07 00:00 :00 No [id number] Apply to area(s) 2 (two) times daily. [facility] labetaloL 200 mg tablet 8 00:00: 00 09-03 00:00 :00 No [id number] 400mg Take 2 tablets by mouth every 12 (twelve) hours. [facility] sofosbuvir- velpatasvir (EPCLUSA) 400-100 mg 10-02 00:00: 00 10-21 00:00 :00 No [id number] 1{tbl} Take 1 tablet by mouth daily. [facility] pravastatin 40 mg tablet 10-02 00:00: 00 03-28 00:00 :00 No [id number] 40mg Take 1 tablet by mouth at bedtime. [facility] allopurinoL 100 mg tablet 10-02 00:00: 00 02-04 00:00 :00 No [id number] 100mg Take 1 tablet by mouth daily. [facility] tamsulosin (FLOMAX) 0.4 mg 24 hr capsule 09-18 00:00: 00 07-22 00:00 :00 No [id number] .8mg Take 2 capsules by mouth at bedtime. [facility] fluticasone propionate (FLOVENT HFA) 220 mcg/actuati on inhaler 09-18 00:00: 00 05-07 00:00 :00 No [id number] INHALE 1 PUFF EVERY 12 (TWELVE) HOURS. Rinse mouth after each use. [facility] mirtazapine 7.5 mg tablet 09-18 00:00: 00 03-23 00:00 :00 No [id number] 7.5mg Take 1 tablet by mouth at bedtime. [facility] triamcinolo ne 0.5 % cream 09-18 00:00: 00 02-04 00:00 :00 No [id number] Apply to area(s) 3 (three) times daily. [facility] minoxidiL 10 mg tablet 09-06 00:00: 07-25 00:00 :00 No [id number] 5mg Take 0.5 tablets by mouth 2 (two) times daily. [facility] sucralfate 1 gram tablet 09-06 00:00: 02-04 00:00 :00 No [id number] TAKE 1 TABLET BY MOUTH 4 TIMES A DAY [facility] mycophenola te 250 mg capsule 07-20 00:00: 08-06 00:00 :00 No 500mg Take 2 capsules by mouth every 12 (twelve) hours. OR PER TRANSPLANT DOCTOR. Z 94.0 Kidney transplant Generic permitted Indication s: z94.0 kidney transplant [facility] tacrolimus (PROGRAF) 1 mg capsule 07-20 00:00: 00 04-15 00:00 :00 No [id number] 4mg Take 4 capsules by mouth every 12 (twelve) hours. Diagnosis: Z 94.0 generic permitted [facility] lisinopriL 5 mg tablet 16 00:00: 00 07-01 00:00 :00 No 5mg Take 1 tablet by mouth daily. [facility] FERROUS SULFATE 325 MG (65 MG IRON) ORAL CPSR 06-07 13:37: 47 06-07 00:00 :00 No 1 tab po bid [facility] predniSONE 5 mg tablet 06-07 00:00: 00 08-26 00:00 :00 No [id number] 5mg Take 1 tablet by mouth daily. [facility] NITROGLYCER IN 0.4 mg sublingual tablet 2020-04 00:00: 00 02-04 00:00 :[id number] 1 TABLET UNDER THE TONGUE EVERY 5 MINUTES NEEDED FOR CHEST PAIN FOR 3 DOSES. IF NO RELIEF, CALL 911. [facility] furosemide 20 mg tablet 2020-04 220 00:00: 00 01-28 00:00 :00 No [id number] 20mg Take 1 tablet by mouth as needed (swelling) . [facility] OMEPRAZOLE 40 mg capsule 2020-04 00:00: 00 03-25 00:00 :00 No [id number] TAKE 1 CAPSULE BY MOUTH EVERY DAY [facility] ezetimibe 10 mg tablet 01-12 00:00: 00 02-08 00:00 :00 No [id number] 10mg Take 1 tablet by mouth daily. [facility] rosuvastati n 20 mg tablet 2019-04 00:00: 11-02 00:00 :00 No [id number] 20mg Take 1 tablet by mouth at bedtime. STOP PRAVASTATI N. [facility] allopurinoL 100 mg tablet 2019-04 00:00: 00 07-20 00:00 :00 No [id number] 100mg Take 1 tablet by mouth 2 (two) times daily. [facility] OMEPRAZOLE 40 mg capsule 2019-04 00:00: 00 06-01 00:00 :00 No [id number] 40mg TAKE 1 CAPSULE BY MOUTH DAILY. REPLACES ESOMEPRAZO LE. [facility] ergocalcife rol, vitamin d2, (VITAMIN D2) 1,250 mcg (50,000 unit) capsule 09-16 00:00: 00 06-07 00:00 :00 No [id number] Take 1 capsule by mouth weekly. [facility] ESCITALOPRA M OXALATE 10 mg tablet 09-15 00:00: 02-12 00:00 :00 No [id number] TAKE 1 TABLET BY MOUTH EVERY DAY [facility] nitroglycer in 0.4 mg sublingual tablet 08-27 00:00: 00 01-09 00:00 :[id number] 1 tablet under the tongue every 5 (five) minutes as needed for Chest pain (Take every 5 minutes X3, if chest pain not relieved, please go to ER). [facility] acetaminoph en-codeine 300-30 mg tablet 08-27 00:00: 08-14 00:00 :00 No [id number] 1{tbl} Take 1 tablet by mouth every 8 (eight) hours as needed (moderate to severe pain). [facility] furosemide 20 mg tablet 06-27 00:00: 07-20 00:00 :00 No [id number] 20mg Take 1 tablet by mouth daily. [facility] sucralfate 1 gram tablet 06-14 00:00: 07-20 00:00 :00 No TAKE 1 TABLET BY MOUTH 4 TIMES A DAY [facility] mycophenola te 250 mg capsule 06-14 00:00: 00 06-01 00:00 :00 No Take 2 tabs am and 2 tabs pm Z 94.0 Kidney transplant Generic permitted Indication s: z94.0 kidney transplant [facility] predniSONE 5 mg tablet 06-14 00:00: 00 06-01 00:00 :00 No [id number] 5mg Take 1 tablet by mouth daily. [facility] minoxidil 10 mg tablet 06-14 00:00: 00 06-01 00:00 :00 No 5mg Take 0.5 tablets by mouth 2 (two) times daily. [facility] tamsulosin (FLOMAX) 0.4 mg 24 hr capsule 06-14 00:00: 00 06-01 00:00 :00 No [id number] .8mg Take 2 capsules by mouth at bedtime. [facility] tacrolimus (PROGRAF) 1 mg capsule 06-14 00:00: 00 06-01 00:00 :00 No [id number] Take 4 mg am and 4 mg pm Diagnosis: Z 94.0 generic permitted [facility] triamcinolo ne acetonide 0.1 % cream 05-31 00:00: 00 08-25 00:00 :00 No [id number] Apply to area(s) 2 (two) times daily. [facility] labetalol 200 mg tablet 05-31 00:00: 00 06-01 00:00 :00 No [id number] 200mg Take 1 tablet by mouth every 12 (twelve) hours. [facility] vitamin B-12 (VITAMIN B-12) 500 mcg tablet 1-16 00:00: 00 02-12 00:00 :00 No [id number] 500ug Take 1 tablet by mouth daily. [facility] magnesium oxide (MAG-OX 400) 400 mg tablet 12-13 00:00: 00 07-17 00:00 :00 No 400mg Take 1 Tab by mouth 2 (two) times daily. [facility] aspirin 325 mg tablet 12-19 00:00: 00 07-15 00:00 :00 No 325mg Take 1 Tab by mouth daily. [facility] Immunizations Ordered Immunization Name Filled Immunization Name Date Status Comments Source Influenza Virus Vaccine 2024-01-22 00:00:00 Completed [facility] Pneumococcal 7 Conjugate, PCV7 (Prevnar7) 2024-01-22 00:00:00 Completed [facility] Influenza Virus Vaccine (3+ yrs) 2024-01-22 00:00:00 Completed [facility] Influenza Virus Vaccine Quad IM 3+ YRS 2024-01-22 00:00:00 Completed [facility] SARS-COV-2 COVID-19 MODERNA 12+ YRS VACCINE 2024-01-22 00:00:00 Completed [facility] Influenza Virus Vaccine,quad Im,preserve Free 65+ (FLUAD) 2024-01-22 00:00:00 Completed [facility] Pneumococcal 13 Conjugate, PCV13 (Prevnar 13) 2024-01-22 00:00:00 Completed [facility] SARS-COV-2 COVID-19 MODERNA 0.25ML BOOSTER VACCINE 2024-01-22 00:00:00 Completed [facility] SARS-COV-2 COVID-19 VACCINE 12 YRS+, BIVALENT 0.5ML, IM, (MODERNA-BLUE TOP) 2024-01-22 00:00:00 Completed [facility] Pneumococcal 20 Conjugate, PCV20 (Prevnar 20) 2024-01-22 00:00:00 Completed [facility] Influenza, adjuvanted, trivalent, PF (FLUAD) 2024-01-22 00:00:00 Completed [facility] TDAP 2024-01-22 00:00:00 Completed [facility] SARS-COV-2 COVID 19 BRITTANEY SUCROSE VACCINE 12+, , 0.3 ML (30 MCG), IM PFIZER (ROCHA TOP) 2024-01-22 00:00:00 Completed [facility] Influenza Virus Vaccine 2024-01-09 00:00:00 Completed [facility] Influenza Virus Vaccine (3+ yrs) 2024-01-09 00:00:00 Completed [facility] SARS-COV-2 COVID-19 MODERNA 12+ YRS VACCINE 2024-01-09 00:00:00 Completed [facility] Influenza Virus Vaccine,quad Im,preserve Free 65+ (FLUAD) 2024-01-09 00:00:00 Completed [facility] Influenza Virus Vaccine 2023-10-14 00:00:00 Completed [facility] Pneumococcal 7 Conjugate, PCV7 (Prevnar7) 2023-10-14 00:00:00 Completed [facility] Influenza Virus Vaccine (3+ yrs) 2023-10-14 00:00:00 Completed [facility] Influenza Virus Vaccine Quad IM 3+ YRS 2023-10-14 00:00:00 Completed [facility] SARS-COV-2 COVID-19 MODERNA 12+ YRS VACCINE 2023-10-14 00:00:00 Completed [facility] Influenza Virus Vaccine,quad Im,preserve Free 65+ (FLUAD) 2023-10-14 00:00:00 Completed [facility] Pneumococcal 13 Conjugate, PCV13 (Prevnar 13) 2023-10-14 00:00:00 Completed [facility] SARS-COV-2 COVID-19 MODERNA 0.25ML BOOSTER VACCINE 2023-10-14 00:00:00 Completed [facility] SARS-COV-2 COVID-19 VACCINE 12 YRS+, BIVALENT 0.5ML, IM, (MODERNA-BLUE TOP) 2023-10-14 00:00:00 Completed [facility] Pneumococcal 20 Conjugate, PCV20 (Prevnar 20) 2023-10-14 00:00:00 Completed [facility] Influenza Virus Vaccine 2023-10-07 10:30:00 Completed [facility] Pneumococcal 7 Conjugate, PCV7 (Prevnar7) 2023-10-07 10:30:00 Completed [facility] [facility] Influenza Virus Vaccine (3+ yrs) 2023-10-07 10:30:00 Completed [facility] Influenza Virus Vaccine Quad IM 3+ YRS 2023-10-07 10:30:00 Completed [facility] SARS-COV-2 COVID-19 MODERNA 12+ YRS VACCINE 2023-10-07 10:30:00 Completed [facility] Influenza Virus Vaccine,quad Im,preserve Free 65+ (FLUAD) 2023-10-07 10:30:00 Completed [facility] Pneumococcal 13 Conjugate, PCV13 (Prevnar 13) 2023-10-07 10:30:00 Completed [facility] SARS-COV-2 COVID-19 MODERNA 0.25ML BOOSTER VACCINE 2023-10-07 10:30:00 Completed [facility] SARS-COV-2 COVID-19 VACCINE 12 YRS+, BIVALENT 0.5ML, IM, (MODERNA-BLUE TOP) 2023-10-07 10:30:00 Completed [facility] Pneumococcal 20 Conjugate, PCV20 (Prevnar 20) 2023-10-07 10:30:00 Completed [facility] Pneumococcal 7 Conjugate, PCV7 (Prevnar7) 2023-10-07 10:00:00 Completed [facility] Influenza Virus Vaccine Quad IM 3+ YRS 2023-10-07 10:00:00 Completed [facility] Pneumococcal 13 Conjugate, PCV13 (Prevnar 13) 2023-10-07 10:00:00 Completed [facility] SARS-COV-2 COVID-19 MODERNA 0.25ML BOOSTER VACCINE 2023-10-07 10:00:00 Completed [facility] SARS-COV-2 COVID-19 VACCINE 12 YRS+, BIVALENT 0.5ML, IM, (MODERNA-BLUE TOP) 2023-10-07 10:00:00 Completed [facility] Pneumococcal 20 Conjugate, PCV20 (Prevnar 20) 2023-10-07 10:00:00 Completed [facility] Influenza Virus Vaccine 2023-10-07 10:00:00 Completed [facility] Influenza Virus Vaccine (3+ yrs) 2023-10-07 10:00:00 Completed [facility] SARS-COV-2 COVID-19 MODERNA 12+ YRS VACCINE 2023-10-07 10:00:00 Completed [facility] Influenza Virus Vaccine,quad Im,preserve Free 65+ (FLUAD) 2023-10-07 10:00:00 Completed [facility] Influenza Virus Vaccine 2023-09-29 00:00:00 Completed [facility] Pneumococcal 7 Conjugate, PCV7 (Prevnar7) 2023-09-29 00:00:00 Completed [facility] Influenza Virus Vaccine (3+ yrs) 2023-09-29 00:00:00 Completed [facility] Influenza Virus Vaccine Quad IM 3+ YRS 2023-09-29 00:00:00 Completed [facility] SARS-COV-2 COVID-19 MODERNA 12+ YRS VACCINE 2023-09-29 00:00:00 Completed [facility] Influenza Virus Vaccine,quad Im,preserve Free 65+ (FLUAD) 2023-09-29 00:00:00 Completed [facility] Pneumococcal 13 Conjugate, PCV13 (Prevnar 13) 2023-09-29 00:00:00 Completed [facility] SARS-COV-2 COVID-19 MODERNA 0.25ML BOOSTER VACCINE 2023-09-29 00:00:00 Completed [facility] SARS-COV-2 COVID-19 VACCINE 12 YRS+, BIVALENT 0.5ML, IM, (MODERNA-BLUE TOP) 2023-09-29 00:00:00 Completed [facility] Pneumococcal 20 Conjugate, PCV20 (Prevnar 20) 2023-09-29 00:00:00 Completed [facility] Influenza Virus Vaccine 2023-09-21 00:00:00 Completed [facility] Pneumococcal 7 Conjugate, PCV7 (Prevnar7) 2023-09-21 00:00:00 Completed [facility] Influenza Virus Vaccine (3+ yrs) 2023-09-21 00:00:00 Completed [facility] Influenza Virus Vaccine Quad IM 3+ YRS 2023-09-21 00:00:00 Completed [facility] SARS-COV-2 COVID-19 MODERNA 12+ YRS VACCINE 2023-09-21 00:00:00 Completed [facility] Influenza Virus Vaccine,quad Im,preserve Free 65+ (FLUAD) 2023-09-21 00:00:00 Completed [facility] Pneumococcal 13 Conjugate, PCV13 (Prevnar 13) 2023-09-21 00:00:00 Completed [facility] SARS-COV-2 COVID-19 MODERNA 0.25ML BOOSTER VACCINE 2023-09-21 00:00:00 Completed [facility] SARS-COV-2 COVID-19 VACCINE 12 YRS+, BIVALENT 0.5ML, IM, (MODERNA-BLUE TOP) 2023-09-21 00:00:00 Completed [facility] Pneumococcal 20 Conjugate, PCV20 (Prevnar 20) 2023-09-21 00:00:00 Completed [facility] Influenza Virus Vaccine 2023-09-16 00:00:00 Completed [facility] Pneumococcal 7 Conjugate, PCV7 (Prevnar7) 2023-09-16 00:00:00 Completed [facility] Influenza Virus Vaccine (3+ yrs) 2023-09-16 00:00:00 Completed [facility] Influenza Virus Vaccine Quad IM 3+ YRS 2023-09-16 00:00:00 Completed [facility] SARS-COV-2 COVID-19 MODERNA 12+ YRS VACCINE 2023-09-16 00:00:00 Completed [facility] Influenza Virus Vaccine,quad Im,preserve Free 65+ (FLUAD) 2023-09-16 00:00:00 Completed [facility] Pneumococcal 13 Conjugate, PCV13 (Prevnar 13) 2023-09-16 00:00:00 Completed [facility] SARS-COV-2 COVID-19 MODERNA 0.25ML BOOSTER VACCINE 2023-09-16 00:00:00 Completed [facility] SARS-COV-2 COVID-19 VACCINE 12 YRS+, BIVALENT 0.5ML, IM, (MODERNA-BLUE TOP) 2023-09-16 00:00:00 Completed [facility] Pneumococcal 20 Conjugate, PCV20 (Prevnar 20) 2023-09-16 00:00:00 Completed [facility] Influenza Virus Vaccine 2023-09-09 00:00:00 Completed [facility] Pneumococcal 7 Conjugate, PCV7 (Prevnar7) 2023-09-09 00:00:00 Completed [facility] Influenza Virus Vaccine (3+ yrs) 2023-09-09 00:00:00 Completed [facility] Influenza Virus Vaccine Quad IM 3+ YRS 2023-09-09 00:00:00 Completed [facility] SARS-COV-2 COVID-19 MODERNA 12+ YRS VACCINE 2023-09-09 00:00:00 Completed [facility] Influenza Virus Vaccine,quad Im,preserve Free 65+ (FLUAD) 2023-09-09 00:00:00 Completed [facility] Pneumococcal 13 Conjugate, PCV13 (Prevnar 13) 2023-09-09 00:00:00 Completed [facility] SARS-COV-2 COVID-19 MODERNA 0.25ML BOOSTER VACCINE 2023-09-09 00:00:00 Completed [facility] SARS-COV-2 COVID-19 VACCINE 12 YRS+, BIVALENT 0.5ML, IM, (MODERNA-BLUE TOP) 2023-09-09 00:00:00 Completed [facility] Pneumococcal 20 Conjugate, PCV20 (Prevnar 20) 2023-09-09 00:00:00 Completed [facility] Influenza Virus Vaccine 2023-09-08 00:00:00 Completed [facility] Pneumococcal 7 Conjugate, PCV7 (Prevnar7) 2023-09-08 00:00:00 Completed [facility] Influenza Virus Vaccine (3+ yrs) 2023-09-08 00:00:00 Completed [facility] Influenza Virus Vaccine Quad IM 3+ YRS 2023-09-08 00:00:00 Completed [facility] SARS-COV-2 COVID-19 MODERNA 12+ YRS VACCINE 2023-09-08 00:00:00 Completed [facility] Influenza Virus Vaccine,quad Im,preserve Free 65+ (FLUAD) 2023-09-08 00:00:00 Completed [facility] Pneumococcal 13 Conjugate, PCV13 (Prevnar 13) 2023-09-08 00:00:00 Completed [facility] SARS-COV-2 COVID-19 MODERNA 0.25ML BOOSTER VACCINE 2023-09-08 00:00:00 Completed [facility] SARS-COV-2 COVID-19 VACCINE 12 YRS+, BIVALENT 0.5ML, IM, (MODERNA-BLUE TOP) 2023-09-08 00:00:00 Completed [facility] Pneumococcal 20 Conjugate, PCV20 (Prevnar 20) 2023-09-08 00:00:00 Completed [facility] Influenza Virus Vaccine 2023-09-08 00:00:00 Completed [facility] Pneumococcal 7 Conjugate, PCV7 (Prevnar7) 2023-09-08 00:00:00 Completed [facility] Influenza Virus Vaccine (3+ yrs) 2023-09-08 00:00:00 Completed [facility] Influenza Virus Vaccine Quad IM 3+ YRS 2023-09-08 00:00:00 Completed [facility] SARS-COV-2 COVID-19 MODERNA 12+ YRS VACCINE 2023-09-08 00:00:00 Completed [facility] Influenza Virus Vaccine,quad Im,preserve Free 65+ (FLUAD) 2023-09-08 00:00:00 Completed [facility] Pneumococcal 13 Conjugate, PCV13 (Prevnar 13) 2023-09-08 00:00:00 Completed [facility] SARS-COV-2 COVID-19 MODERNA 0.25ML BOOSTER VACCINE 2023-09-08 00:00:00 Completed [facility] SARS-COV-2 COVID-19 VACCINE 12 YRS+, BIVALENT 0.5ML, IM, (MODERNA-BLUE TOP) 2023-09-08 00:00:00 Completed [facility] Pneumococcal 20 Conjugate, PCV20 (Prevnar 20) 2023-09-08 00:00:00 Completed [facility] Pneumococcal 7 Conjugate, PCV7 (Prevnar7) 2023-09-01 00:00:00 Completed [facility] Influenza Virus Vaccine (3+ yrs) 2023-09-01 00:00:00 Completed [facility] Influenza Virus Vaccine Quad IM 3+ YRS 2023-09-01 00:00:00 Completed [facility] SARS-COV-2 COVID-19 MODERNA 12+ YRS VACCINE 2023-09-01 00:00:00 Completed [facility] Influenza Virus Vaccine,quad Im,preserve Free 65+ (FLUAD) 2023-09-01 00:00:00 Completed [facility] Pneumococcal 13 Conjugate, PCV13 (Prevnar 13) 2023-09-01 00:00:00 Completed [facility] SARS-COV-2 COVID-19 MODERNA 0.25ML BOOSTER VACCINE 2023-09-01 00:00:00 Completed [facility] SARS-COV-2 COVID-19 VACCINE 12 YRS+, BIVALENT 0.5ML, IM, (MODERNA-BLUE TOP) 2023-09-01 00:00:00 Completed [facility] Pneumococcal 20 Conjugate, PCV20 (Prevnar 20) 2023-09-01 00:00:00 Completed [facility] Influenza Virus Vaccine 2023-09-01 00:00:00 Completed [facility] Influenza Virus Vaccine 2023-08-28 00:00:00 Completed [facility] Pneumococcal 7 Conjugate, PCV7 (Prevnar7) 2023-08-28 00:00:00 Completed [facility] Influenza Virus Vaccine (3+ yrs) 2023-08-28 00:00:00 Completed [facility] Influenza Virus Vaccine Quad IM 3+ YRS 2023-08-28 00:00:00 Completed [facility] SARS-COV-2 COVID-19 MODERNA 12+ YRS VACCINE 2023-08-28 00:00:00 Completed [facility] Influenza Virus Vaccine,quad Im,preserve Free 65+ (FLUAD) 2023-08-28 00:00:00 Completed [facility] Pneumococcal 13 Conjugate, PCV13 (Prevnar 13) 2023-08-28 00:00:00 Completed [facility] SARS-COV-2 COVID-19 MODERNA 0.25ML BOOSTER VACCINE 2023-08-28 00:00:00 Completed [facility] SARS-COV-2 COVID-19 VACCINE 12 YRS+, BIVALENT 0.5ML, IM, (MODERNA-BLUE TOP) 2023-08-28 00:00:00 Completed [facility] Pneumococcal 20 Conjugate, PCV20 (Prevnar 20) 2023-08-28 00:00:00 Completed [facility] Influenza Virus Vaccine 2023-08-28 00:00:00 Completed [facility] Pneumococcal 7 Conjugate, PCV7 (Prevnar7) 2023-08-28 00:00:00 Completed [facility] Influenza Virus Vaccine (3+ yrs) 2023-08-28 00:00:00 Completed [facility] Influenza Virus Vaccine Quad IM 3+ YRS 2023-08-28 00:00:00 Completed [facility] SARS-COV-2 COVID-19 MODERNA 12+ YRS VACCINE 2023-08-28 00:00:00 Completed [facility] Influenza Virus Vaccine,quad Im,preserve Free 65+ (FLUAD) 2023-08-28 00:00:00 Completed [facility] Pneumococcal 13 Conjugate, PCV13 (Prevnar 13) 2023-08-28 00:00:00 Completed [facility] SARS-COV-2 COVID-19 MODERNA 0.25ML BOOSTER VACCINE 2023-08-28 00:00:00 Completed [facility] SARS-COV-2 COVID-19 VACCINE 12 YRS+, BIVALENT 0.5ML, IM, (MODERNA-BLUE TOP) 2023-08-28 00:00:00 Completed [facility] Pneumococcal 20 Conjugate, PCV20 (Prevnar 20) 2023-08-28 00:00:00 Completed [facility] Influenza Virus Vaccine 2023-08-28 00:00:00 Completed [facility] Pneumococcal 7 Conjugate, PCV7 (Prevnar7) 2023-08-28 00:00:00 Completed [facility] Influenza Virus Vaccine (3+ yrs) 2023-08-28 00:00:00 Completed [facility] Influenza Virus Vaccine Quad IM 3+ YRS 2023-08-28 00:00:00 Completed [facility] SARS-COV-2 COVID-19 MODERNA 12+ YRS VACCINE 2023-08-28 00:00:00 Completed [facility] Influenza Virus Vaccine,quad Im,preserve Free 65+ (FLUAD) 2023-08-28 00:00:00 Completed [facility] Pneumococcal 13 Conjugate, PCV13 (Prevnar 13) 2023-08-28 00:00:00 Completed [facility] SARS-COV-2 COVID-19 MODERNA 0.25ML BOOSTER VACCINE 2023-08-28 00:00:00 Completed [facility] SARS-COV-2 COVID-19 VACCINE 12 YRS+, BIVALENT 0.5ML, IM, (MODERNA-BLUE TOP) 2023-08-28 00:00:00 Completed [facility] Pneumococcal 20 Conjugate, PCV20 (Prevnar 20) 2023-08-28 00:00:00 Completed [facility] Influenza Virus Vaccine 2023-08-21 10:30:00 Completed [facility] Pneumococcal 7 Conjugate, PCV7 (Prevnar7) 2023-08-21 10:30:00 Completed [facility] Influenza Virus Vaccine (3+ yrs) 2023-08-21 10:30:00 Completed [facility] Influenza Virus Vaccine Quad IM 3+ YRS 2023-08-21 10:30:00 Completed [facility] SARS-COV-2 COVID-19 MODERNA 12+ YRS VACCINE 2023-08-21 10:30:00 Completed [facility] Influenza Virus Vaccine,quad Im,preserve Free 65+ (FLUAD) 2023-08-21 10:30:00 Completed [facility] Pneumococcal 13 Conjugate, PCV13 (Prevnar 13) 2023-08-21 10:30:00 Completed [facility] SARS-COV-2 COVID-19 MODERNA 0.25ML BOOSTER VACCINE 2023-08-21 10:30:00 Completed [facility] SARS-COV-2 COVID-19 VACCINE 12 YRS+, BIVALENT 0.5ML, IM, (MODERNA-BLUE TOP) 2023-08-21 10:30:00 Completed [facility] Pneumococcal 20 Conjugate, PCV20 (Prevnar 20) 2023-08-21 10:30:00 Completed [facility] Pneumococcal 7 Conjugate, PCV7 (Prevnar7) 2023-07-31 14:15:00 Completed [facility] Influenza Virus Vaccine Quad IM 3+ YRS 2023-07-31 14:15:00 Completed [facility] Pneumococcal 13 Conjugate, PCV13 (Prevnar 13) 2023-07-31 14:15:00 Completed [facility] SARS-COV-2 COVID-19 MODERNA 0.25ML BOOSTER VACCINE 2023-07-31 14:15:00 Completed [facility] SARS-COV-2 COVID-19 VACCINE 12 YRS+, BIVALENT 0.5ML, IM, (MODERNA-BLUE TOP) 2023-07-31 14:15:00 Completed [facility] Pneumococcal 20 Conjugate, PCV20 (Prevnar 20) 2023-07-31 14:15:00 Completed [facility] Influenza Virus Vaccine 2023-07-31 14:15:00 Completed [facility] Influenza Virus Vaccine (3+ yrs) 2023-07-31 14:15:00 Completed [facility] SARS-COV-2 COVID-19 MODERNA 12+ YRS VACCINE 2023-07-31 14:15:00 Completed [facility] Influenza Virus Vaccine,quad Im,preserve Free 65+ (FLUAD) 2023-07-31 14:15:00 Completed [facility] Influenza Virus Vaccine 2023-07-28 00:00:00 Completed [facility] Pneumococcal 7 Conjugate, PCV7 (Prevnar7) 2023-07-28 00:00:00 Completed [facility] Influenza Virus Vaccine (3+ yrs) 2023-07-28 00:00:00 Completed [facility] Influenza Virus Vaccine Quad IM 3+ YRS 2023-07-28 00:00:00 Completed [facility] SARS-COV-2 COVID-19 MODERNA 12+ YRS VACCINE 2023-07-28 00:00:00 Completed [facility] Influenza Virus Vaccine,quad Im,preserve Free 65+ (FLUAD) 2023-07-28 00:00:00 Completed [facility] Pneumococcal 13 Conjugate, PCV13 (Prevnar 13) 2023-07-28 00:00:00 Completed [facility] SARS-COV-2 COVID-19 MODERNA 0.25ML BOOSTER VACCINE 2023-07-28 00:00:00 Completed [facility] SARS-COV-2 COVID-19 VACCINE 12 YRS+, BIVALENT 0.5ML, IM, (MODERNA-BLUE TOP) 2023-07-28 00:00:00 Completed [facility] Pneumococcal 20 Conjugate, PCV20 (Prevnar 20) 2023-07-28 00:00:00 Completed [facility] Influenza Virus Vaccine 2023-07-18 00:00:00 Completed [facility] Pneumococcal 7 Conjugate, PCV7 (Prevnar7) 2023-07-18 00:00:00 Completed [facility] Influenza Virus Vaccine (3+ yrs) 2023-07-18 00:00:00 Completed [facility] Influenza Virus Vaccine Quad IM 3+ YRS 2023-07-18 00:00:00 Completed [facility] SARS-COV-2 COVID-19 MODERNA 12+ YRS VACCINE 2023-07-18 00:00:00 Completed [facility] Influenza Virus Vaccine,quad Im,preserve Free 65+ (FLUAD) 2023-07-18 00:00:00 Completed [facility] Pneumococcal 13 Conjugate, PCV13 (Prevnar 13) 2023-07-18 00:00:00 Completed [facility] SARS-COV-2 COVID-19 MODERNA 0.25ML BOOSTER VACCINE 2023-07-18 00:00:00 Completed [facility] SARS-COV-2 COVID-19 VACCINE 12 YRS+, BIVALENT 0.5ML, IM, (MODERNA-BLUE TOP) 2023-07-18 00:00:00 Completed [facility] Pneumococcal 20 Conjugate, PCV20 (Prevnar 20) 2023-07-18 00:00:00 Completed [facility] Influenza Virus Vaccine 2023-07-08 19:30:00 Completed [facility] Pneumococcal 7 Conjugate, PCV7 (Prevnar7) 2023-07-08 19:30:00 Completed [facility] Influenza Virus Vaccine (3+ yrs) 2023-07-08 19:30:00 Completed [facility] Influenza Virus Vaccine Quad IM 3+ YRS 2023-07-08 19:30:00 Completed [facility] SARS-COV-2 COVID-19 MODERNA 12+ YRS VACCINE 2023-07-08 19:30:00 Completed [facility] Influenza Virus Vaccine,quad Im,preserve Free 65+ (FLUAD) 2023-07-08 19:30:00 Completed [facility] Pneumococcal 13 Conjugate, PCV13 (Prevnar 13) 2023-07-08 19:30:00 Completed [facility] SARS-COV-2 COVID-19 MODERNA 0.25ML BOOSTER VACCINE 2023-07-08 19:30:00 Completed [facility] SARS-COV-2 COVID-19 VACCINE 12 YRS+, BIVALENT 0.5ML, IM, (MODERNA-BLUE TOP) 2023-07-08 19:30:00 Completed [facility] Pneumococcal 20 Conjugate, PCV20 (Prevnar 20) 2023-07-08 19:30:00 Completed [facility] Influenza Virus Vaccine 2023-07-08 06:45:00 Completed [facility] Pneumococcal 7 Conjugate, PCV7 (Prevnar7) 2023-07-08 06:45:00 Completed [facility] Influenza Virus Vaccine (3+ yrs) 2023-07-08 06:45:00 Completed [facility] Influenza Virus Vaccine Quad IM 3+ YRS 2023-07-08 06:45:00 Completed [facility] SARS-COV-2 COVID-19 MODERNA 12+ YRS VACCINE 2023-07-08 06:45:00 Completed [facility] Influenza Virus Vaccine,quad Im,preserve Free 65+ (FLUAD) 2023-07-08 06:45:00 Completed [facility] Pneumococcal 13 Conjugate, PCV13 (Prevnar 13) 2023-07-08 06:45:00 Completed [facility] SARS-COV-2 COVID-19 MODERNA 0.25ML BOOSTER VACCINE 2023-07-08 06:45:00 Completed [facility] SARS-COV-2 COVID-19 VACCINE 12 YRS+, BIVALENT 0.5ML, IM, (MODERNA-BLUE TOP) 2023-07-08 06:45:00 Completed [facility] Pneumococcal 20 Conjugate, PCV20 (Prevnar 20) 2023-07-08 06:45:00 Completed [facility] Influenza Virus Vaccine 2023-07-04 15:12:00 Completed [facility] Pneumococcal 7 Conjugate, PCV7 (Prevnar7) 2023-07-04 15:12:00 Completed [facility] Influenza Virus Vaccine (3+ yrs) 2023-07-04 15:12:00 Completed [facility] Influenza Virus Vaccine Quad IM 3+ YRS 2023-07-04 15:12:00 Completed [facility] SARS-COV-2 COVID-19 MODERNA 12+ YRS VACCINE 2023-07-04 15:12:00 Completed [facility] Influenza Virus Vaccine,quad Im,preserve Free 65+ (FLUAD) 2023-07-04 15:12:00 Completed [facility] Pneumococcal 13 Conjugate, PCV13 (Prevnar 13) 2023-07-04 15:12:00 Completed [facility] SARS-COV-2 COVID-19 MODERNA 0.25ML BOOSTER VACCINE 2023-07-04 15:12:00 Completed [facility] SARS-COV-2 COVID-19 VACCINE 12 YRS+, BIVALENT 0.5ML, IM, (MODERNA-BLUE TOP) 2023-07-04 15:12:00 Completed [facility] Pneumococcal 20 Conjugate, PCV20 (Prevnar 20) 2023-07-04 15:12:00 Completed [facility] Influenza Virus Vaccine 2023-07-02 19:45:00 [facility] [facility] Pneumococcal 7 Conjugate, PCV7 (Prevnar7) 2023-07-02 19:45:00 Completed [facility] Influenza Virus Vaccine (3+ yrs) 2023-07-02 19:45:00 Completed [facility] Influenza Virus Vaccine Quad IM 3+ YRS 2023-07-02 19:45:00 Completed [facility] SARS-COV-2 COVID-19 MODERNA 12+ YRS VACCINE 2023-07-02 19:45:00 Completed [facility] Influenza Virus Vaccine,quad Im,preserve Free 65+ (FLUAD) 2023-07-02 19:45:00 Completed [facility] Pneumococcal 13 Conjugate, PCV13 (Prevnar 13) 2023-07-02 19:45:00 Completed [facility] SARS-COV-2 COVID-19 MODERNA 0.25ML BOOSTER VACCINE 2023-07-02 19:45:00 Completed [facility] SARS-COV-2 COVID-19 VACCINE 12 YRS+, BIVALENT 0.5ML, IM, (MODERNA-BLUE TOP) 2023-07-02 19:45:00 Completed [facility] Pneumococcal 20 Conjugate, PCV20 (Prevnar 20) 2023-07-02 19:45:00 Completed [facility] Influenza Virus Vaccine 2023-07-02 00:00:00 Completed [facility] Pneumococcal 7 Conjugate, PCV7 (Prevnar7) 2023-07-02 00:00:00 Completed [facility] Influenza Virus Vaccine (3+ yrs) 2023-07-02 00:00:00 Completed [facility] Influenza Virus Vaccine Quad IM 3+ YRS 2023-07-02 00:00:00 Completed [facility] SARS-COV-2 COVID-19 MODERNA 12+ YRS VACCINE 2023-07-02 00:00:00 Completed [facility] Influenza Virus Vaccine,quad Im,preserve Free 65+ (FLUAD) 2023-07-02 00:00:00 Completed [facility] Pneumococcal 13 Conjugate, PCV13 (Prevnar 13) 2023-07-02 00:00:00 Completed [facility] SARS-COV-2 COVID-19 MODERNA 0.25ML BOOSTER VACCINE 2023-07-02 00:00:00 Completed [facility] SARS-COV-2 COVID-19 VACCINE 12 YRS+, BIVALENT 0.5ML, IM, (MODERNA-BLUE TOP) 2023-07-02 00:00:00 Completed [facility] Pneumococcal 20 Conjugate, PCV20 (Prevnar 20) 2023-07-02 00:00:00 Completed [facility] Influenza Virus Vaccine 2023-06-24 00:00:00 Completed [facility] Pneumococcal 7 Conjugate, PCV7 (Prevnar7) 2023-06-24 00:00:00 Completed [facility] Influenza Virus Vaccine (3+ yrs) 2023-06-24 00:00:00 Completed [facility] Influenza Virus Vaccine Quad IM 3+ YRS 2023-06-24 00:00:00 Completed [facility] SARS-COV-2 COVID-19 MODERNA 12+ YRS VACCINE 2023-06-24 00:00:00 Completed [facility] Influenza Virus Vaccine,quad Im,preserve Free 65+ (FLUAD) 2023-06-24 00:00:00 Completed [facility] Pneumococcal 13 Conjugate, PCV13 (Prevnar 13) 2023-06-24 00:00:00 Completed [facility] SARS-COV-2 COVID-19 MODERNA 0.25ML BOOSTER VACCINE 2023-06-24 00:00:00 Completed [facility] SARS-COV-2 COVID-19 VACCINE 12 YRS+, BIVALENT 0.5ML, IM, (MODERNA-BLUE TOP) 2023-06-24 00:00:00 Completed [facility] Pneumococcal 20 Conjugate, PCV20 (Prevnar 20) 2023-06-24 00:00:00 Completed [facility] Pneumococcal 7 Conjugate, PCV7 (Prevnar7) 2023-06-20 10:00:00 Completed [facility] Influenza Virus Vaccine Quad IM 3+ YRS 2023-06-20 10:00:00 Completed [facility] Pneumococcal 13 Conjugate, PCV13 (Prevnar 13) 2023-06-20 10:00:00 Completed [facility] SARS-COV-2 COVID-19 MODERNA 0.25ML BOOSTER VACCINE 2023-06-20 10:00:00 Completed [facility] SARS-COV-2 COVID-19 VACCINE 12 YRS+, BIVALENT 0.5ML, IM, (MODERNA-BLUE TOP) 2023-06-20 10:00:00 Completed [facility] Pneumococcal 20 Conjugate, PCV20 (Prevnar 20) 2023-06-20 10:00:00 Completed [facility] Influenza Virus Vaccine 2023-06-20 10:00:00 Completed [facility] Influenza Virus Vaccine (3+ yrs) 2023-06-20 10:00:00 Completed [facility] SARS-COV-2 COVID-19 MODERNA 12+ YRS VACCINE 2023-06-20 10:00:00 Completed [facility] Influenza Virus Vaccine,quad Im,preserve Free 65+ (FLUAD) 2023-06-20 10:00:00 Completed [facility] Influenza Virus Vaccine 2023-06-20 00:00:00 Completed [facility] Pneumococcal 7 Conjugate, PCV7 (Prevnar7) 2023-06-20 00:00:00 Completed [facility] Influenza Virus Vaccine (3+ yrs) 2023-06-20 00:00:00 Completed [facility] Influenza Virus Vaccine Quad IM 3+ YRS 2023-06-20 00:00:00 Completed [facility] SARS-COV-2 COVID-19 MODERNA 12+ YRS VACCINE 2023-06-20 00:00:00 Completed [facility] Influenza Virus Vaccine,quad Im,preserve Free 65+ (FLUAD) 2023-06-20 00:00:00 Completed [facility] Pneumococcal 13 Conjugate, PCV13 (Prevnar 13) 2023-06-20 00:00:00 Completed [facility] SARS-COV-2 COVID-19 MODERNA 0.25ML BOOSTER VACCINE 2023-06-20 00:00:00 Completed [facility] SARS-COV-2 COVID-19 VACCINE 12 YRS+, BIVALENT 0.5ML, IM, (MODERNA-BLUE TOP) 2023-06-20 00:00:00 Completed [facility] Pneumococcal 20 Conjugate, PCV20 (Prevnar 20) 2023-06-20 00:00:00 Completed [facility] Influenza Virus Vaccine 2023-06-12 00:00:00 Completed [facility] Pneumococcal 7 Conjugate, PCV7 (Prevnar7) 2023-06-12 00:00:00 Completed [facility] Influenza Virus Vaccine (3+ yrs) 2023-06-12 00:00:00 Completed [facility] Influenza Virus Vaccine Quad IM 3+ YRS 2023-06-12 00:00:00 Completed [facility] SARS-COV-2 COVID-19 MODERNA 12+ YRS VACCINE 2023-06-12 00:00:00 Completed [facility] Influenza Virus Vaccine,quad Im,preserve Free 65+ (FLUAD) 2023-06-12 00:00:00 Completed [facility] Pneumococcal 13 Conjugate, PCV13 (Prevnar 13) 2023-06-12 00:00:00 Completed [facility] SARS-COV-2 COVID-19 MODERNA 0.25ML BOOSTER VACCINE 2023-06-12 00:00:00 Completed [facility] SARS-COV-2 COVID-19 VACCINE 12 YRS+, BIVALENT 0.5ML, IM, (MODERNA-BLUE TOP) 2023-06-12 00:00:00 Completed [facility] Pneumococcal 20 Conjugate, PCV20 (Prevnar 20) 2023-06-12 00:00:00 Completed [facility] Influenza Virus Vaccine 2023-06-12 00:00:00 Completed [facility] Pneumococcal 7 Conjugate, PCV7 (Prevnar7) 2023-06-12 00:00:00 Completed [facility] Influenza Virus Vaccine (3+ yrs) 2023-06-12 00:00:00 Completed [facility] Influenza Virus Vaccine Quad IM 3+ YRS 2023-06-12 00:00:00 Completed [facility] SARS-COV-2 COVID-19 MODERNA 12+ YRS VACCINE 2023-06-12 00:00:00 Completed [facility] Influenza Virus Vaccine,quad Im,preserve Free 65+ (FLUAD) 2023-06-12 00:00:00 Completed [facility] Pneumococcal 13 Conjugate, PCV13 (Prevnar 13) 2023-06-12 00:00:00 Completed [facility] SARS-COV-2 COVID-19 MODERNA 0.25ML BOOSTER VACCINE 2023-06-12 00:00:00 Completed [facility] SARS-COV-2 COVID-19 VACCINE 12 YRS+, BIVALENT 0.5ML, IM, (MODERNA-BLUE TOP) 2023-06-12 00:00:00 Completed [facility] Pneumococcal 20 Conjugate, PCV20 (Prevnar 20) 2023-06-12 00:00:00 Completed [facility] Influenza Virus Vaccine 2023-05-26 11:00:00 Completed [facility] Pneumococcal 7 Conjugate, PCV7 (Prevnar7) 2023-05-26 11:00:00 Completed [facility] Influenza Virus Vaccine (3+ yrs) 2023-05-26 11:00:00 Completed [facility] Influenza Virus Vaccine Quad IM 3+ YRS 2023-05-26 11:00:00 Completed [facility] SARS-COV-2 COVID-19 MODERNA 12+ YRS VACCINE 2023-05-26 11:00:00 Completed [facility] Influenza Virus Vaccine,quad Im,preserve Free 65+ (FLUAD) 2023-05-26 11:00:00 Completed [facility] Pneumococcal 13 Conjugate, PCV13 (Prevnar 13) 2023-05-26 11:00:00 Completed [facility] SARS-COV-2 COVID-19 MODERNA 0.25ML BOOSTER VACCINE 2023-05-26 11:00:00 Completed [facility] SARS-COV-2 COVID-19 VACCINE 12 YRS+, BIVALENT 0.5ML, IM, (MODERNA-BLUE TOP) 2023-05-26 11:00:00 Completed [facility] Pneumococcal 20 Conjugate, PCV20 (Prevnar 20) 2023-05-26 11:00:00 Completed [facility] Influenza Virus Vaccine 2023-05-26 10:00:00 Completed [facility] Pneumococcal 7 Conjugate, PCV7 (Prevnar7) 2023-05-26 10:00:00 Completed [facility] Influenza Virus Vaccine (3+ yrs) 2023-05-26 10:00:00 Completed [facility] Influenza Virus Vaccine Quad IM 3+ YRS 2023-05-26 10:00:00 Completed [facility] SARS-COV-2 COVID-19 MODERNA 12+ YRS VACCINE 2023-05-26 10:00:00 Completed [facility] Influenza Virus Vaccine,quad Im,preserve Free 65+ (FLUAD) 2023-05-26 10:00:00 Completed [facility] Pneumococcal 13 Conjugate, PCV13 (Prevnar 13) 2023-05-26 10:00:00 Completed [facility] SARS-COV-2 COVID-19 MODERNA 0.25ML BOOSTER VACCINE 2023-05-26 10:00:00 Completed [facility] SARS-COV-2 COVID-19 VACCINE 12 YRS+, BIVALENT 0.5ML, IM, (MODERNA-BLUE TOP) 2023-05-26 10:00:00 Completed [facility] Pneumococcal 20 Conjugate, PCV20 (Prevnar 20) 2023-05-26 10:00:00 Completed [facility] Pneumococcal 7 Conjugate, PCV7 (Prevnar7) 2023-05-23 11:30:00 Completed [facility] Influenza Virus Vaccine Quad IM 3+ YRS 2023-05-23 11:30:00 Completed [facility] Pneumococcal 13 Conjugate, PCV13 (Prevnar 13) 2023-05-23 11:30:00 Completed [facility] SARS-COV-2 COVID-19 MODERNA 0.25ML BOOSTER VACCINE 2023-05-23 11:30:00 Completed [facility] SARS-COV-2 COVID-19 VACCINE 12 YRS+, BIVALENT 0.5ML, IM, (MODERNA-BLUE TOP) 2023-05-23 11:30:00 Completed [facility] Pneumococcal 20 Conjugate, PCV20 (Prevnar 20) 2023-05-23 11:30:00 Completed [facility] Influenza Virus Vaccine 2023-05-23 11:30:00 Completed [facility] Influenza Virus Vaccine (3+ yrs) 2023-05-23 11:30:00 Completed [facility] SARS-COV-2 COVID-19 MODERNA 12+ YRS VACCINE 2023-05-23 11:30:00 Completed [facility] Influenza Virus Vaccine,quad Im,preserve Free 65+ (FLUAD) 2023-05-23 11:30:00 Completed [facility] Pneumococcal 7 Conjugate, PCV7 (Prevnar7) 2023-05-23 09:15:00 Completed [facility] Influenza Virus Vaccine Quad IM 3+ YRS 2023-05-23 09:15:00 Completed [facility] Pneumococcal 13 Conjugate, PCV13 (Prevnar 13) 2023-05-23 09:15:00 Completed [facility] SARS-COV-2 COVID-19 MODERNA 0.25ML BOOSTER VACCINE 2023-05-23 09:15:00 Completed [facility] SARS-COV-2 COVID-19 VACCINE 12 YRS+, BIVALENT 0.5ML, IM, (MODERNA-BLUE TOP) 2023-05-23 09:15:00 Completed [facility] Pneumococcal 20 Conjugate, PCV20 (Prevnar 20) 2023-05-23 09:15:00 Completed [facility] Influenza Virus Vaccine 2023-05-23 09:15:00 Completed [facility] Influenza Virus Vaccine (3+ yrs) 2023-05-23 09:15:00 Completed [facility] SARS-COV-2 COVID-19 MODERNA 12+ YRS VACCINE 2023-05-23 09:15:00 Completed [facility] Influenza Virus Vaccine,quad Im,preserve Free 65+ (FLUAD) 2023-05-23 09:15:00 Completed [facility] Influenza Virus Vaccine 2023-05-23 00:00:00 Completed [facility] Pneumococcal 7 Conjugate, PCV7 (Prevnar7) 2023-05-23 00:00:00 Completed [facility] Influenza Virus Vaccine (3+ yrs) 2023-05-23 00:00:00 Completed [facility] Influenza Virus Vaccine Quad IM 3+ YRS 2023-05-23 00:00:00 Completed [facility] SARS-COV-2 COVID-19 MODERNA 12+ YRS VACCINE 2023-05-23 00:00:00 Completed [facility] Influenza Virus Vaccine,quad Im,preserve Free 65+ (FLUAD) 2023-05-23 00:00:00 Completed [facility] Pneumococcal 13 Conjugate, PCV13 (Prevnar 13) 2023-05-23 00:00:00 Completed [facility] SARS-COV-2 COVID-19 MODERNA 0.25ML BOOSTER VACCINE 2023-05-23 00:00:00 Completed [facility] SARS-COV-2 COVID-19 VACCINE 12 YRS+, BIVALENT 0.5ML, IM, (MODERNA-BLUE TOP) 2023-05-23 00:00:00 Completed [facility] Pneumococcal 20 Conjugate, PCV20 (Prevnar 20) 2023-05-23 00:00:00 Completed [facility] Influenza Virus Vaccine 2023-05-02 10:30:00 Completed [facility] Pneumococcal 7 Conjugate, PCV7 (Prevnar7) 2023-05-02 10:30:00 Completed [facility] Influenza Virus Vaccine (3+ yrs) 2023-05-02 10:30:00 Completed [facility] Influenza Virus Vaccine Quad IM 3+ YRS 2023-05-02 10:30:00 Completed [facility] SARS-COV-2 COVID-19 MODERNA 12+ YRS VACCINE 2023-05-02 10:30:00 Completed [facility] Influenza Virus Vaccine,quad Im,preserve Free 65+ (FLUAD) 2023-05-02 10:30:00 Completed [facility] Pneumococcal 13 Conjugate, PCV13 (Prevnar 13) 2023-05-02 10:30:00 Completed [facility] SARS-COV-2 COVID-19 MODERNA 0.25ML BOOSTER VACCINE 2023-05-02 10:30:00 Completed [facility] SARS-COV-2 COVID-19 VACCINE 12 YRS+, BIVALENT 0.5ML, IM, (MODERNA-BLUE TOP) 2023-05-02 10:30:00 Completed [facility] Pneumococcal 20 Conjugate, PCV20 (Prevnar 20) 2023-05-02 10:30:00 Completed [facility] Influenza Virus Vaccine 2023-05-02 00:00:00 Completed [facility] Pneumococcal 7 Conjugate, PCV7 (Prevnar7) 2023-05-02 00:00:00 Completed [facility] Influenza Virus Vaccine (3+ yrs) 2023-05-02 00:00:00 Completed [facility] Influenza Virus Vaccine Quad IM 3+ YRS 2023-05-02 00:00:00 Completed [facility] SARS-COV-2 COVID-19 MODERNA 12+ YRS VACCINE 2023-05-02 00:00:00 Completed [facility] Influenza Virus Vaccine,quad Im,preserve Free 65+ (FLUAD) 2023-05-02 00:00:00 Completed [facility] Pneumococcal 13 Conjugate, PCV13 (Prevnar 13) 2023-05-02 00:00:00 Completed [facility] SARS-COV-2 COVID-19 MODERNA 0.25ML BOOSTER VACCINE 2023-05-02 00:00:00 Completed [facility] SARS-COV-2 COVID-19 VACCINE 12 YRS+, BIVALENT 0.5ML, IM, (MODERNA-BLUE TOP) 2023-05-02 00:00:00 Completed [facility] Pneumococcal 20 Conjugate, PCV20 (Prevnar 20) 2023-05-02 00:00:00 Completed [facility] Influenza Virus Vaccine 2023-04-24 00:00:00 Completed [facility] Pneumococcal 7 Conjugate, PCV7 (Prevnar7) 2023-04-24 00:00:00 Completed [facility] Influenza Virus Vaccine (3+ yrs) 2023-04-24 00:00:00 Completed [facility] Influenza Virus Vaccine Quad IM 3+ YRS 2023-04-24 00:00:00 Completed [facility] SARS-COV-2 COVID-19 MODERNA 12+ YRS VACCINE 2023-04-24 00:00:00 Completed [facility] Influenza Virus Vaccine,quad Im,preserve Free 65+ (FLUAD) 2023-04-24 00:00:00 Completed [facility] Pneumococcal 13 Conjugate, PCV13 (Prevnar 13) 2023-04-24 00:00:00 Completed [facility] SARS-COV-2 COVID-19 MODERNA 0.25ML BOOSTER VACCINE 2023-04-24 00:00:00 Completed [facility] SARS-COV-2 COVID-19 VACCINE 12 YRS+, BIVALENT 0.5ML, IM, (MODERNA-BLUE TOP) 2023-04-24 00:00:00 Completed [facility] Pneumococcal 20 Conjugate, PCV20 (Prevnar 20) 2023-04-24 00:00:00 Completed [facility] Influenza Virus Vaccine 2023-03-28 10:15:00 Completed [facility] Pneumococcal 7 Conjugate, PCV7 (Prevnar7) 2023-03-28 10:15:00 Completed [facility] Influenza Virus Vaccine (3+ yrs) 2023-03-28 10:15:00 Completed [facility] Influenza Virus Vaccine Quad IM 3+ YRS 2023-03-28 10:15:00 Completed [facility] SARS-COV-2 COVID-19 MODERNA 12+ YRS VACCINE 2023-03-28 10:15:00 Completed [facility] Influenza Virus Vaccine,quad Im,preserve Free 65+ (FLUAD) 2023-03-28 10:15:00 Completed [facility] Pneumococcal 13 Conjugate, PCV13 (Prevnar 13) 2023-03-28 10:15:00 Completed [facility] SARS-COV-2 COVID-19 MODERNA 0.25ML BOOSTER VACCINE 2023-03-28 10:15:00 Completed [facility] SARS-COV-2 COVID-19 VACCINE 12 YRS+, BIVALENT 0.5ML, IM, (MODERNA-BLUE TOP) 2023-03-28 10:15:00 Completed [facility] Pneumococcal 20 Conjugate, PCV20 (Prevnar 20) 2023-03-28 10:15:00 Completed [facility] Influenza Virus Vaccine 2023-03-28 00:00:00 Completed [facility] Pneumococcal 7 Conjugate, PCV7 (Prevnar7) 2023-03-28 00:00:00 Completed [facility] Influenza Virus Vaccine (3+ yrs) 2023-03-28 00:00:00 Completed [facility] Influenza Virus Vaccine Quad IM 3+ YRS 2023-03-28 00:00:00 Completed [facility] SARS-COV-2 COVID-19 MODERNA 12+ YRS VACCINE 2023-03-28 00:00:00 Completed [facility] Influenza Virus Vaccine,quad Im,preserve Free 65+ (FLUAD) 2023-03-28 00:00:00 Completed [facility] Pneumococcal 13 Conjugate, PCV13 (Prevnar 13) 2023-03-28 00:00:00 Completed [facility] SARS-COV-2 COVID-19 MODERNA 0.25ML BOOSTER VACCINE 2023-03-28 00:00:00 Completed [facility] SARS-COV-2 COVID-19 VACCINE 12 YRS+, BIVALENT 0.5ML, IM, (MODERNA-BLUE TOP) 2023-03-28 00:00:00 Completed [facility] Pneumococcal 20 Conjugate, PCV20 (Prevnar 20) 2023-03-28 00:00:00 Completed [facility] Influenza Virus Vaccine 2023-03-17 00:00:00 Completed [facility] Pneumococcal 7 Conjugate, PCV7 (Prevnar7) 2023-03-17 00:00:00 Completed [facility] Influenza Virus Vaccine (3+ yrs) 2023-03-17 00:00:00 Completed [facility] Influenza Virus Vaccine Quad IM 3+ YRS 2023-03-17 00:00:00 Completed [facility] SARS-COV-2 COVID-19 MODERNA 12+ YRS VACCINE 2023-03-17 00:00:00 Completed [facility] Influenza Virus Vaccine,quad Im,preserve Free 65+ (FLUAD) 2023-03-17 00:00:00 Completed [facility] Pneumococcal 13 Conjugate, PCV13 (Prevnar 13) 2023-03-17 00:00:00 Completed [facility] SARS-COV-2 COVID-19 MODERNA 0.25ML BOOSTER VACCINE 2023-03-17 00:00:00 Completed [facility] SARS-COV-2 COVID-19 VACCINE 12 YRS+, BIVALENT 0.5ML, IM, (MODERNA-BLUE TOP) 2023-03-17 00:00:00 Completed [facility] Pneumococcal 20 Conjugate, PCV20 (Prevnar 20) 2023-03-17 00:00:00 Completed [facility] Influenza Virus Vaccine 2023-03-17 00:00:00 Completed [facility] Pneumococcal 7 Conjugate, PCV7 (Prevnar7) 2023-03-17 00:00:00 Completed [facility] Influenza Virus Vaccine (3+ yrs) 2023-03-17 00:00:00 Completed [facility] Influenza Virus Vaccine Quad IM 3+ YRS 2023-03-17 00:00:00 Completed [facility] SARS-COV-2 COVID-19 MODERNA 12+ YRS VACCINE 2023-03-17 00:00:00 Completed [facility] Influenza Virus Vaccine,quad Im,preserve Free 65+ (FLUAD) 2023-03-17 00:00:00 Completed [facility] Pneumococcal 13 Conjugate, PCV13 (Prevnar 13) 2023-03-17 00:00:00 Completed [facility] SARS-COV-2 COVID-19 MODERNA 0.25ML BOOSTER VACCINE 2023-03-17 00:00:00 Completed [facility] SARS-COV-2 COVID-19 VACCINE 12 YRS+, BIVALENT 0.5ML, IM, (MODERNA-BLUE TOP) 2023-03-17 00:00:00 Completed [facility] Pneumococcal 20 Conjugate, PCV20 (Prevnar 20) 2023-03-17 00:00:00 Completed [facility] [facility] Influenza Virus Vaccine 2023-03-13 09:45:00 Completed [facility] Pneumococcal 7 Conjugate, PCV7 (Prevnar7) 2023-03-13 09:45:00 Completed [facility] Influenza Virus Vaccine (3+ yrs) 2023-03-13 09:45:00 Completed [facility] Influenza Virus Vaccine Quad IM 3+ YRS 2023-03-13 09:45:00 Completed [facility] SARS-COV-2 COVID-19 MODERNA 12+ YRS VACCINE 2023-03-13 09:45:00 Completed [facility] Influenza Virus Vaccine,quad Im,preserve Free 65+ (FLUAD) 2023-03-13 09:45:00 Completed [facility] Pneumococcal 13 Conjugate, PCV13 (Prevnar 13) 2023-03-13 09:45:00 Completed [facility] SARS-COV-2 COVID-19 MODERNA 0.25ML BOOSTER VACCINE 2023-03-13 09:45:00 Completed [facility] SARS-COV-2 COVID-19 VACCINE 12 YRS+, BIVALENT 0.5ML, IM, (MODERNA-BLUE TOP) 2023-03-13 09:45:00 Completed [facility] Pneumococcal 20 Conjugate, PCV20 (Prevnar 20) 2023-03-13 09:45:00 Completed [facility] Influenza Virus Vaccine 2023-03-12 00:00:00 Completed [facility] Pneumococcal 7 Conjugate, PCV7 (Prevnar7) 2023-03-12 00:00:00 Completed [facility] Influenza Virus Vaccine (3+ yrs) 2023-03-12 00:00:00 Completed [facility] Influenza Virus Vaccine Quad IM 3+ YRS 2023-03-12 00:00:00 Completed [facility] SARS-COV-2 COVID-19 MODERNA 12+ YRS VACCINE 2023-03-12 00:00:00 Completed [facility] Influenza Virus Vaccine,quad Im,preserve Free 65+ (FLUAD) 2023-03-12 00:00:00 Completed [facility] Pneumococcal 13 Conjugate, PCV13 (Prevnar 13) 2023-03-12 00:00:00 Completed [facility] SARS-COV-2 COVID-19 MODERNA 0.25ML BOOSTER VACCINE 2023-03-12 00:00:00 Completed [facility] SARS-COV-2 COVID-19 VACCINE 12 YRS+, BIVALENT 0.5ML, IM, (MODERNA-BLUE TOP) 2023-03-12 00:00:00 Completed [facility] Pneumococcal 20 Conjugate, PCV20 (Prevnar 20) 2023-03-12 00:00:00 Completed [facility] Pneumococcal 7 Conjugate, PCV7 (Prevnar7) 2023-02-24 10:30:00 Completed [facility] Influenza Virus Vaccine (3+ yrs) 2023-02-24 10:30:00 Completed [facility] Influenza Virus Vaccine 2023-02-24 10:30:00 Completed [facility] Influenza Virus Vaccine Quad IM 3+ YRS 2023-02-24 10:30:00 Completed [facility] SARS-COV-2 COVID-19 MODERNA 12+ YRS VACCINE 2023-02-24 10:30:00 Completed [facility] Influenza Virus Vaccine,quad Im,preserve Free 65+ (FLUAD) 2023-02-24 10:30:00 Completed [facility] Pneumococcal 13 Conjugate, PCV13 (Prevnar 13) 2023-02-24 10:30:00 Completed [facility] SARS-COV-2 COVID-19 MODERNA 0.25ML BOOSTER VACCINE 2023-02-24 10:30:00 Completed [facility] SARS-COV-2 COVID-19 VACCINE 12 YRS+, BIVALENT 0.5ML, IM, (MODERNA-BLUE TOP) 2023-02-24 10:30:00 Completed [facility] Pneumococcal 20 Conjugate, PCV20 (Prevnar 20) 2023-02-24 10:30:00 Completed [facility] Pneumococcal 7 Conjugate, PCV7 (Prevnar7) 2023-02-24 00:00:00 Completed [facility] Influenza Virus Vaccine (3+ yrs) 2023-02-24 00:00:00 Completed [facility] Influenza Virus Vaccine 2023-02-24 00:00:00 Completed [facility] Influenza Virus Vaccine Quad IM 3+ YRS 2023-02-24 00:00:00 Completed [facility] SARS-COV-2 COVID-19 MODERNA 12+ YRS VACCINE 2023-02-24 00:00:00 Completed [facility] Influenza Virus Vaccine,quad Im,preserve Free 65+ (FLUAD) 2023-02-24 00:00:00 Completed [facility] Pneumococcal 13 Conjugate, PCV13 (Prevnar 13) 2023-02-24 00:00:00 Completed [facility] SARS-COV-2 COVID-19 MODERNA 0.25ML BOOSTER VACCINE 2023-02-24 00:00:00 Completed [facility] SARS-COV-2 COVID-19 VACCINE 12 YRS+, BIVALENT 0.5ML, IM, (MODERNA-BLUE TOP) 2023-02-24 00:00:00 Completed [facility] Pneumococcal 20 Conjugate, PCV20 (Prevnar 20) 2023-02-24 00:00:00 Completed [facility] Pneumococcal 7 Conjugate, PCV7 (Prevnar7) 2023-02-19 10:30:00 Completed [facility] Influenza Virus Vaccine (3+ yrs) 2023-02-19 10:30:00 Completed [facility] Influenza Virus Vaccine 2023-02-19 10:30:00 Completed [facility] Influenza Virus Vaccine Quad IM 3+ YRS 2023-02-19 10:30:00 Completed [facility] SARS-COV-2 COVID-19 MODERNA 12+ YRS VACCINE 2023-02-19 10:30:00 Completed [facility] Influenza Virus Vaccine,quad Im,preserve Free 65+ (FLUAD) 2023-02-19 10:30:00 Completed [facility] Pneumococcal 13 Conjugate, PCV13 (Prevnar 13) 2023-02-19 10:30:00 Completed [facility] SARS-COV-2 COVID-19 MODERNA 0.25ML BOOSTER VACCINE 2023-02-19 10:30:00 Completed [facility] SARS-COV-2 COVID-19 VACCINE 12 YRS+, BIVALENT 0.5ML, IM, (MODERNA-BLUE TOP) 2023-02-19 10:30:00 Completed [facility] Pneumococcal 20 Conjugate, PCV20 (Prevnar 20) 2023-02-19 10:30:00 Completed [facility] Pneumococcal 7 Conjugate, PCV7 (Prevnar7) 2023-02-19 10:00:00 Completed [facility] Influenza Virus Vaccine Quad IM 3+ YRS 2023-02-19 10:00:00 Completed [facility] Pneumococcal 13 Conjugate, PCV13 (Prevnar 13) 2023-02-19 10:00:00 Completed [facility] SARS-COV-2 COVID-19 MODERNA 0.25ML BOOSTER VACCINE 2023-02-19 10:00:00 Completed [facility] SARS-COV-2 COVID-19 VACCINE 12 YRS+, BIVALENT 0.5ML, IM, (MODERNA-BLUE TOP) 2023-02-19 10:00:00 Completed [facility] Pneumococcal 20 Conjugate, PCV20 (Prevnar 20) 2023-02-19 10:00:00 Completed [facility] Influenza Virus Vaccine 2023-02-19 10:00:00 Completed [facility] Influenza Virus Vaccine (3+ yrs) 2023-02-19 10:00:00 Completed [facility] SARS-COV-2 COVID-19 MODERNA 12+ YRS VACCINE 2023-02-19 10:00:00 Completed [facility] Influenza Virus Vaccine,quad Im,preserve Free 65+ (FLUAD) 2023-02-19 10:00:00 Completed [facility] Pneumococcal 7 Conjugate, PCV7 (Prevnar7) 2023-02-19 00:00:00 Completed [facility] Influenza Virus Vaccine 2023-02-19 00:00:00 Completed [facility] Influenza Virus Vaccine Quad IM 3+ YRS 2023-02-19 00:00:00 Completed [facility] SARS-COV-2 COVID-19 MODERNA 12+ YRS VACCINE 2023-02-19 00:00:00 Completed [facility] Influenza Virus Vaccine,quad Im,preserve Free 65+ (FLUAD) 2023-02-19 00:00:00 Completed [facility] Pneumococcal 13 Conjugate, PCV13 (Prevnar 13) 2023-02-19 00:00:00 Completed [facility] SARS-COV-2 COVID-19 MODERNA 0.25ML BOOSTER VACCINE 2023-02-19 00:00:00 Completed [facility] SARS-COV-2 COVID-19 VACCINE 12 YRS+, BIVALENT 0.5ML, IM, (MODERNA-BLUE TOP) 2023-02-19 00:00:00 Completed [facility] Pneumococcal 20 Conjugate, PCV20 (Prevnar 20) 2023-02-19 00:00:00 Completed [facility] Influenza Virus Vaccine (3+ yrs) 2023-02-19 00:00:00 Completed [facility] Influenza, High-Dose, Trivalent, PF (FLUZONE) 2023-02-03 00:00:00 Completed Influenza Virus Vaccine 2023-01-27 14:30:00 Completed [facility] Influenza Virus Vaccine Quad IM 3+ YRS 2023-01-27 14:30:00 Completed [facility] SARS-COV-2 COVID-19 MODERNA 12+ YRS VACCINE 2023-01-27 14:30:00 Completed [facility] Influenza Virus Vaccine,quad Im,preserve Free 65+ (FLUAD) 2023-01-27 14:30:00 Completed [facility] Pneumococcal 13 Conjugate, PCV13 (Prevnar 13) 2023-01-27 14:30:00 Completed [facility] SARS-COV-2 COVID-19 MODERNA 0.25ML BOOSTER VACCINE 2023-01-27 14:30:00 Completed [facility] SARS-COV-2 COVID-19 VACCINE 12 YRS+, BIVALENT 0.5ML, IM, (MODERNA-BLUE TOP) 2023-01-27 14:30:00 Completed [facility] Pneumococcal 20 Conjugate, PCV20 (Prevnar 20) 2023-01-27 14:30:00 Completed [facility] Pneumococcal 7 Conjugate, PCV7 (Prevnar7) 2023-01-27 14:30:00 Completed [facility] Influenza Virus Vaccine (3+ yrs) 2023-01-27 14:30:00 Completed [facility] Pneumococcal 7 Conjugate, PCV7 (Prevnar7) 2023-01-21 00:00:00 Completed [facility] Influenza Virus Vaccine (3+ yrs) 2023-01-21 00:00:00 Completed [facility] Influenza Virus Vaccine 2023-01-21 00:00:00 Completed [facility] Influenza Virus Vaccine Quad IM 3+ YRS 2023-01-21 00:00:00 Completed [facility] SARS-COV-2 COVID-19 MODERNA 12+ YRS VACCINE 2023-01-21 00:00:00 Completed [facility] Influenza Virus Vaccine,quad Im,preserve Free 65+ (FLUAD) 2023-01-21 00:00:00 Completed [facility] Pneumococcal 13 Conjugate, PCV13 (Prevnar 13) 2023-01-21 00:00:00 Completed [facility] SARS-COV-2 COVID-19 MODERNA 0.25ML BOOSTER VACCINE 2023-01-21 00:00:00 Completed [facility] SARS-COV-2 COVID-19 VACCINE 12 YRS+, BIVALENT 0.5ML, IM, (MODERNA-BLUE TOP) 2023-01-21 00:00:00 Completed [facility] Pneumococcal 20 Conjugate, PCV20 (Prevnar 20) 2023-01-21 00:00:00 Completed [facility] Pneumococcal 7 Conjugate, PCV7 (Prevnar7) 2023-01-14 00:00:00 Completed [facility] Influenza Virus Vaccine (3+ yrs) 2023-01-14 00:00:00 Completed [facility] Influenza Virus Vaccine 2023-01-14 00:00:00 Completed [facility] Influenza Virus Vaccine Quad IM 3+ YRS 2023-01-14 00:00:00 Completed [facility] SARS-COV-2 COVID-19 MODERNA 12+ YRS VACCINE 2023-01-14 00:00:00 Completed [facility] Influenza Virus Vaccine,quad Im,preserve Free 65+ (FLUAD) 2023-01-14 00:00:00 Completed [facility] Pneumococcal 13 Conjugate, PCV13 (Prevnar 13) 2023-01-14 00:00:00 Completed [facility] SARS-COV-2 COVID-19 MODERNA 0.25ML BOOSTER VACCINE 2023-01-14 00:00:00 Completed [facility] SARS-COV-2 COVID-19 VACCINE 12 YRS+, BIVALENT 0.5ML, IM, (MODERNA-BLUE TOP) 2023-01-14 00:00:00 Completed [facility] Pneumococcal 20 Conjugate, PCV20 (Prevnar 20) 2023-01-14 00:00:00 Completed [facility] Pneumococcal 20 Conjugate, PCV20 (Prevnar 20) 2022-10-21 00:00:00 Completed [facility] Pneumococcal 20 Conjugate, PCV20 (Prevnar 20) 2022-10-21 00:00:00 Completed [facility] Pneumococcal 20 Conjugate, PCV20 (Prevnar 20) 2022-10-21 00:00:00 Completed [facility] Pneumococcal 20 Conjugate, PCV20 (Prevnar 20) 2022-10-21 00:00:00 Completed [facility] Pneumococcal 20 Conjugate, PCV20 (Prevnar 20) 2022-10-21 00:00:00 Completed [facility] Pneumococcal 20 Conjugate, PCV20 (Prevnar 20) 2022-10-21 00:00:00 Completed [facility] Pneumococcal 20 Conjugate, PCV20 (Prevnar 20) 2022-10-21 00:00:00 Completed [facility] Pneumococcal 20 Conjugate, PCV20 (Prevnar 20) 2022-10-21 00:00:00 Completed [facility] Pneumococcal 20 Conjugate, PCV20 (Prevnar 20) 2022-10-21 00:00:00 Completed [facility] Pneumococcal 20 Conjugate, PCV20 (Prevnar 20) 2022-10-21 00:00:00 Completed [facility] Pneumococcal 20 Conjugate, PCV20 (Prevnar 20) 2022-10-21 00:00:00 Completed [facility] Pneumococcal 20 Conjugate, PCV20 (Prevnar 20) 2022-10-21 00:00:00 Completed [facility] Influenza Virus Vaccine,quad Im,preserve Free 652022-04-01 00:00:00 Completed [facility] Influenza Virus Vaccine,quad Im,preserve Free 65+ 2022-04-01 00:00:00 Completed [facility] Influenza Virus Vaccine,quad Im,preserve Free 652022-04-01 00:00:00 Completed [facility] Influenza Virus Vaccine,quad Im,preserve Free 652022-04-01 00:00:00 Completed [facility] Influenza Virus Vaccine,quad Im,preserve Free 652022-04-01 00:00:00 Completed [facility] Influenza Virus Vaccine,quad Im,preserve Free 652022-04-01 00:00:00 Completed [facility] Influenza Virus Vaccine,quad Im,preserve Free 652022-04-01 00:00:00 Completed [facility] Influenza Virus Vaccine,quad Im,preserve Free 652022-04-01 00:00:00 Completed [facility] Influenza Virus Vaccine,quad Im,preserve Free 652022-04-01 00:00:00 Completed [facility] Influenza Virus Vaccine,quad Im,preserve Free 652022-04-01 00:00:00 Completed [facility] Influenza Virus Vaccine,quad Im,preserve Free 652022-04-01 00:00:00 Completed [facility] Influenza Virus Vaccine,quad Im,preserve Free 65+ 2022-04-01 00:00:00 Completed [facility] Influenza Virus Vaccine,quad Im,preserve Free 65+ 2022-04-01 00:00:00 Completed [facility] Influenza Virus Vaccine,quad Im,preserve Free 652022-04-01 00:00:00 Completed [facility] Influenza Virus Vaccine,quad Im,preserve Free 2022-04-01 00:00:00 Completed [facility] Influenza Virus Vaccine,quad Im,preserve Free 2022-04-01 00:00:00 Completed [facility] Influenza Virus Vaccine,quad Im,preserve Free 652022-04-01 00:00:00 Completed [facility] Influenza Virus Vaccine,quad Im,preserve Free 652022-04-01 00:00:00 Completed [facility] Influenza Virus Vaccine,quad Im,preserve Free 2022-04-01 00:00:00 Completed [facility] Influenza Virus Vaccine,quad Im,preserve Free 2022-04-01 00:00:00 Completed [facility] Influenza Virus Vaccine,quad Im,preserve Free 2022-04-01 00:00:00 Completed [facility] Influenza Virus Vaccine,quad Im,preserve Free 2022-04-01 00:00:00 Completed [facility] Influenza Virus Vaccine,quad Im,preserve Free 2022-04-01 00:00:00 Completed [facility] Influenza Virus Vaccine,quad Im,preserve Free 2022-04-01 00:00:00 Completed [facility] Influenza Virus Vaccine,quad Im,preserve Free 2022-04-01 00:00:00 Completed [facility] Influenza Virus Vaccine,quad Im,preserve Free 2022-04-01 00:00:00 Completed [facility] Influenza Virus Vaccine,quad Im,preserve Free 2022-04-01 00:00:00 Completed [facility] Influenza Virus Vaccine,quad Im,preserve Free 2022-04-01 00:00:00 Completed [facility] Influenza Virus Vaccine,quad Im,preserve Free 2022-04-01 00:00:00 Completed [facility] Influenza Virus Vaccine,quad Im,preserve Free 2022-04-01 00:00:00 Completed [facility] Influenza Virus Vaccine,quad Im,preserve Free 2022-04-01 00:00:00 Completed [facility] Influenza Virus Vaccine,quad Im,preserve Free 652022-04-01 00:00:00 Completed [facility] Influenza Virus Vaccine,quad Im,preserve Free 652022-04-01 00:00:00 Completed [facility] Influenza Virus Vaccine,quad Im,preserve Free 652022-04-01 00:00:00 Completed [facility] Influenza Virus Vaccine,quad Im,preserve Free 652022-04-01 00:00:00 Completed [facility] Influenza Virus Vaccine,quad Im,preserve Free 652022-04-01 00:00:00 Completed [facility] Influenza Virus Vaccine,quad Im,preserve Free 652022-04-01 00:00:00 Completed [facility] Influenza Virus Vaccine,quad Im,preserve Free 2022-04-01 00:00:00 Completed [facility] Influenza Virus Vaccine,quad Im,preserve Free 2022-04-01 00:00:00 Completed [facility] Influenza Virus Vaccine,quad Im,preserve Free 2022-04-01 00:00:00 Completed [facility] Influenza Virus Vaccine,quad Im,preserve Free 2022-04-01 00:00:00 Completed [facility] Influenza Virus Vaccine,quad Im,preserve Free 2022-04-01 00:00:00 Completed [facility] Influenza Virus Vaccine,quad Im,preserve Free 2022-04-01 00:00:00 Completed [facility] Influenza Virus Vaccine,quad Im,preserve Free 2022-04-01 00:00:00 Completed [facility] Influenza Virus Vaccine,quad Im,preserve Free 652022-04-01 00:00:00 Completed [facility] Influenza Virus Vaccine,quad Im,preserve Free 2022-04-01 00:00:00 Completed [facility] Influenza Virus Vaccine,quad Im,preserve Free 652022-04-01 00:00:00 Completed [facility] Influenza Virus Vaccine,quad Im,preserve Free 2022-04-01 00:00:00 Completed [facility] Influenza Virus Vaccine,quad Im,preserve Free 65+ 2022-04-01 00:00:00 Completed [facility] Influenza Virus Vaccine,quad Im,preserve Free 65+ 2022-04-01 00:00:00 Completed [facility] Influenza Virus Vaccine,quad Im,preserve Free 65+ 2022-04-01 00:00:00 Completed [facility] Influenza Virus Vaccine,quad Im,preserve Free 65+ 2022-04-01 00:00:00 Completed [facility] Influenza Virus Vaccine,quad Im,preserve Free 65+ 2022-04-01 00:00:00 Completed [facility] Influenza Virus Vaccine,quad Im,preserve Free 65+ 2022-04-01 00:00:00 Completed [facility] Influenza Virus Vaccine,quad Im,preserve Free 65+ (FLUAD) 2022-04-01 00:00:00 Completed [facility] Influenza Virus Vaccine,quad Im,preserve Free 65+ (FLUAD) 2022-04-01 00:00:00 Completed [facility] Influenza Virus Vaccine,quad Im,preserve Free 65+ (FLUAD) 2022-04-01 00:00:00 Completed [facility] Influenza Virus Vaccine,quad Im,preserve Free 65+ (FLUAD) 2022-04-01 00:00:00 Completed [facility] SARS-COV-2 COVID-19 VACCINE 18 YRS+, BIVALENT 0.5ML, IM, (MODERNA BOOSTER) 2022-02-04 00:00:00 Completed [facility] SARS-COV-2 COVID-19 VACCINE 18 YRS+, BIVALENT 0.5ML, IM, (MODERNA BOOSTER) 2022-02-04 00:00:00 Completed [facility] SARS-COV-2 COVID-19 VACCINE 18 YRS+, BIVALENT 0.5ML, IM, (MODERNA BOOSTER) 2022-02-04 00:00:00 Completed [facility] SARS-COV-2 COVID-19 VACCINE 12 YRS+, BIVALENT 0.5ML, IM, (MODERNA BOOSTER) 2022-02-04 00:00:00 Completed [facility] SARS-COV-2 COVID-19 VACCINE 12 YRS+, BIVALENT 0.5ML, IM, (MODERNA BOOSTER) 2022-02-04 00:00:00 Completed [facility] SARS-COV-2 COVID-19 VACCINE 12 YRS+, BIVALENT 0.5ML, IM, (MODERNA BOOSTER) 2022-02-04 00:00:00 Completed [facility] SARS-COV-2 COVID-19 VACCINE 12 YRS+, BIVALENT 0.5ML, IM, (MODERNA BOOSTER) 2022-02-04 00:00:00 Completed [facility] SARS-COV-2 COVID-19 VACCINE 12 YRS+, BIVALENT 0.5ML, IM, (MODERNA BOOSTER) 2022-02-04 00:00:00 Completed [facility] SARS-COV-2 COVID-19 VACCINE 12 YRS+, BIVALENT 0.5ML, IM, (MODERNA BOOSTER) 2022-02-04 00:00:00 Completed [facility] SARS-COV-2 COVID-19 VACCINE 12 YRS+, BIVALENT 0.5ML, IM, (MODERNA BOOSTER) 2022-02-04 00:00:00 Completed [facility] SARS-COV-2 COVID-19 VACCINE 12 YRS+, BIVALENT 0.5ML, IM, (MODERNA BOOSTER) 2022-02-04 00:00:00 Completed [facility] SARS-COV-2 COVID-19 VACCINE 12 YRS+, BIVALENT 0.5ML, IM, (MODERNA BOOSTER) 2022-02-04 00:00:00 Completed [facility] SARS-COV-2 COVID-19 VACCINE 12 YRS+, BIVALENT 0.5ML, IM, (MODERNA BOOSTER) 2022-02-04 00:00:00 Completed [facility] SARS-COV-2 COVID-19 VACCINE 12 YRS+, BIVALENT 0.5ML, IM, (MODERNA BOOSTER) 2022-02-04 00:00:00 Completed [facility] [place] SARS-COV-2 COVID-19 VACCINE 12 YRS+, BIVALENT 0.5ML, IM, (MODERNA BOOSTER) 2022-02-04 00:00:00 Completed [facility] [place] SARS-COV-2 COVID-19 VACCINE 12 YRS+, BIVALENT 0.5ML, IM, (MODERNA BOOSTER) 2022-02-04 00:00:00 Completed [facility] [place] SARS-COV-2 COVID-19 VACCINE 12 YRS+, BIVALENT 0.5ML, IM, (MODERNA BOOSTER) 2022-02-04 00:00:00 Completed [facility] [place] SARS-COV-2 COVID-19 VACCINE 12 YRS+, BIVALENT 0.5ML, IM, (MODERNA BOOSTER) 2022-02-04 00:00:00 Completed [facility] [place] SARS-COV-2 COVID-19 VACCINE 12 YRS+, BIVALENT 0.5ML, IM, (MODERNA BOOSTER) 2022-02-04 00:00:00 Completed [facility] [place] SARS-COV-2 COVID-19 VACCINE 12 YRS+, BIVALENT 0.5ML, IM, (MODERNA BOOSTER) 2022-02-04 00:00:00 Completed [facility] [place] SARS-COV-2 COVID-19 VACCINE 12 YRS+, BIVALENT 0.5ML, IM, (MODERNA BOOSTER) 2022-02-04 00:00:00 Completed [facility] [place] SARS-COV-2 COVID-19 VACCINE 12 YRS+, BIVALENT 0.5ML, IM, (MODERNA BOOSTER) 2022-02-04 00:00:00 Completed [facility] [place] SARS-COV-2 COVID-19 VACCINE 12 YRS+, BIVALENT 0.5ML, IM, (MODERNA BOOSTER) 2022-02-04 00:00:00 Completed [facility] [place] SARS-COV-2 COVID-19 VACCINE 12 YRS+, BIVALENT 0.5ML, IM, (MODERNA BOOSTER) 2022-02-04 00:00:00 Completed [facility] [place] SARS-COV-2 COVID-19 VACCINE 12 YRS+, BIVALENT 0.5ML, IM, (MODERNA BOOSTER) 2022-02-04 00:00:00 Completed [facility] [place] SARS-COV-2 COVID-19 VACCINE 12 YRS+, BIVALENT 0.5ML, IM, (MODERNA BOOSTER) 2022-02-04 00:00:00 Completed [facility] [place] SARS-COV-2 COVID-19 VACCINE 12 YRS+, BIVALENT 0.5ML, IM, (MODERNA BOOSTER) 2022-02-04 00:00:00 Completed [facility] [place] SARS-COV-2 COVID-19 VACCINE 12 YRS+, BIVALENT 0.5ML, IM, (MODERNA BOOSTER) 2022-02-04 00:00:00 Completed [facility] [place] SARS-COV-2 COVID-19 VACCINE 12 YRS+, BIVALENT 0.5ML, IM, (MODERNA BOOSTER) 2022-02-04 00:00:00 Completed [facility] [place] SARS-COV-2 COVID-19 VACCINE 12 YRS+, BIVALENT 0.5ML, IM, (MODERNA BOOSTER) 2022-02-04 00:00:00 Completed [facility] [place] SARS-COV-2 COVID-19 VACCINE 12 YRS+, BIVALENT 0.5ML, IM, (MODERNA BOOSTER) 2022-02-04 00:00:00 Completed [facility] [place] SARS-COV-2 COVID-19 VACCINE 12 YRS+, BIVALENT 0.5ML, IM, (MODERNA BOOSTER) 2022-02-04 00:00:00 Completed [facility] [place] SARS-COV-2 COVID-19 VACCINE 12 YRS+, BIVALENT 0.5ML, IM, (MODERNA BOOSTER) 2022-02-04 00:00:00 Completed [facility] [place] SARS-COV-2 COVID-19 VACCINE 12 YRS+, BIVALENT 0.5ML, IM, (MODERNA BOOSTER) 2022-02-04 00:00:00 Completed [facility] [place] SARS-COV-2 COVID-19 VACCINE 12 YRS+, BIVALENT 0.5ML, IM, (MODERNA BOOSTER) 2022-02-04 00:00:00 Completed [facility] [place] SARS-COV-2 COVID-19 VACCINE 12 YRS+, BIVALENT 0.5ML, IM, (MODERNA BOOSTER) 2022-02-04 00:00:00 Completed [facility] [place] SARS-COV-2 COVID-19 VACCINE 12 YRS+, BIVALENT 0.5ML, IM, (MODERNA BOOSTER) 2022-02-04 00:00:00 Completed [facility] [place] SARS-COV-2 COVID-19 VACCINE 12 YRS+, BIVALENT 0.5ML, IM, (MODERNA BOOSTER) 2022-02-04 00:00:00 Completed [facility] [place] SARS-COV-2 COVID-19 VACCINE 12 YRS+, BIVALENT 0.5ML, IM, (MODERNA BOOSTER) 2022-02-04 00:00:00 Completed [facility] [place] SARS-COV-2 COVID-19 VACCINE 12 YRS+, BIVALENT 0.5ML, IM, (MODERNA BOOSTER) 2022-02-04 00:00:00 Completed [facility] [place] SARS-COV-2 COVID-19 VACCINE 12 YRS+, BIVALENT 0.5ML, IM, (MODERNA BOOSTER) 2022-02-04 00:00:00 Completed [facility] [place] SARS-COV-2 COVID-19 VACCINE 12 YRS+, BIVALENT 0.5ML, IM, (MODERNA BOOSTER) 2022-02-04 00:00:00 Completed [facility] [place] SARS-COV-2 COVID-19 VACCINE 12 YRS+, BIVALENT 0.5ML, IM, (MODERNA BOOSTER) 2022-02-04 00:00:00 Completed [facility] [place] SARS-COV-2 COVID-19 VACCINE 12 YRS+, BIVALENT 0.5ML, IM, (MODERNA BOOSTER) 2022-02-04 00:00:00 Completed [facility] [place] SARS-COV-2 COVID-19 VACCINE 12 YRS+, BIVALENT 0.5ML, IM, (MODERNA BOOSTER) 2022-02-04 00:00:00 Completed [facility] [place] SARS-COV-2 COVID-19 VACCINE 12 YRS+, BIVALENT 0.5ML, IM, (MODERNA BOOSTER) 2022-02-04 00:00:00 Completed [facility] [place] SARS-COV-2 COVID-19 VACCINE 12 YRS+, BIVALENT 0.5ML, IM, (MODERNA BOOSTER) 2022-02-04 00:00:00 Completed [facility] [place] SARS-COV-2 COVID-19 VACCINE 12 YRS+, BIVALENT 0.5ML, IM, (MODERNA) 2022-02-04 00:00:00 Completed [facility] [place] SARS-COV-2 COVID-19 VACCINE 12 YRS+, BIVALENT 0.5ML, IM, (MODERNA) 2022-02-04 00:00:00 Completed [facility] [place] SARS-COV-2 COVID-19 VACCINE 12 YRS+, BIVALENT 0.5ML, IM, (MODERNA) 2022-02-04 00:00:00 Completed [facility] [place] SARS-COV-2 COVID-19 VACCINE 12 YRS+, BIVALENT 0.5ML, IM, (MODERNA-BLUE TOP) 2022-02-04 00:00:00 Completed [facility] [place] SARS-COV-2 COVID-19 VACCINE 12 YRS+, BIVALENT 0.5ML, IM, (MODERNA-BLUE TOP) 2022-02-04 00:00:00 Completed [facility] [place] SARS-COV-2 COVID-19 VACCINE 12 YRS+, BIVALENT 0.5ML, IM, (MODERNA-BLUE TOP) 2022-02-04 00:00:00 Completed [facility] [place] SARS-COV-2 COVID-19 VACCINE 12 YRS+, BIVALENT 0.5ML, IM, (MODERNA-BLUE TOP) 2022-02-04 00:00:00 Completed [facility] [place] SARS-COV-2 COVID-19 VACCINE 12 YRS+, BIVALENT 0.5ML, IM, (MODERNA-BLUE TOP) 2022-02-04 00:00:00 Completed [facility] [place] SARS-COV-2 COVID-19 VACCINE 12 YRS+, BIVALENT 0.5ML, IM, (MODERNA-BLUE TOP) 2022-02-04 00:00:00 Completed [facility] [place] SARS-COV-2 COVID-19 VACCINE 12 YRS+, BIVALENT 0.5ML, IM, (MODERNA-BLUE TOP) 2022-02-04 00:00:00 Completed [facility] [place] SARS-COV-2 COVID-19 VACCINE 12 YRS+, BIVALENT 0.5ML, IM, (MODERNA-BLUE TOP) 2022-02-04 00:00:00 Completed [facility] [place] SARS-COV-2 COVID-19 VACCINE 12 YRS+, BIVALENT 0.5ML, IM, (MODERNA-BLUE TOP) 2022-02-04 00:00:00 Completed [facility] [place] SARS-COV-2 COVID-19 VACCINE 12 YRS+, BIVALENT 0.5ML, IM, (MODERNA-BLUE TOP) 2022-02-04 00:00:00 Completed [facility] [place] SARS-COV-2 COVID-19 VACCINE 12 YRS+, BIVALENT 0.5ML, IM, (MODERNA-BLUE TOP) 2022-02-04 00:00:00 Completed [facility] [place] SARS-COV-2 COVID-19 VACCINE 12 YRS+, BIVALENT 0.5ML, IM, (MODERNA-BLUE TOP) 2022-02-04 00:00:00 Completed [facility] [place] SARS-COV-2 COVID-19 VACCINE 12 YRS+, BIVALENT 0.5ML, IM, (MODERNA-BLUE TOP) 2022-02-04 00:00:00 Completed [facility] [place] SARS-COV-2 COVID-19 VACCINE 12 YRS+, BIVALENT 0.5ML, IM, (MODERNA-BLUE TOP) 2022-02-04 00:00:00 Completed [facility] [place] SARS-COV-2 COVID-19 VACCINE 12 YRS+, BIVALENT 0.5ML, IM, (MODERNA-BLUE TOP) 2022-02-04 00:00:00 Completed [facility] [place] SARS-COV-2 COVID-19 VACCINE 12 YRS+, BIVALENT 0.5ML, IM, (MODERNA-BLUE TOP) 2022-02-04 00:00:00 Completed [facility] [place] SARS-COV-2 COVID-19 VACCINE 12 YRS+, BIVALENT 0.5ML, IM, (MODERNA-BLUE TOP) 2022-02-04 00:00:00 Completed [facility] [place] SARS-COV-2 COVID-19 VACCINE 12 YRS+, BIVALENT 0.5ML, IM, (MODERNA-BLUE TOP) 2022-02-04 00:00:00 Completed [facility] [place] SARS-COV-2 COVID-19 VACCINE 12 YRS+, BIVALENT 0.5ML, IM, (MODERNA-BLUE TOP) 2022-02-04 00:00:00 Completed [facility] [place] SARS-COV-2 COVID-19 VACCINE 12 YRS+, BIVALENT 0.5ML, IM, (MODERNA-BLUE TOP) 2022-02-04 00:00:00 Completed [facility] [place] SARS-COV-2 COVID-19 MODERNA 0.25ML BOOSTER VACCINE 2021-09-03 00:00:00 Completed [facility] [place] SARS-COV-2 COVID-19 MODERNA 0.25ML BOOSTER VACCINE 2021-09-03 00:00:00 Completed [facility] [place] SARS-COV-2 COVID-19 MODERNA 0.25ML BOOSTER VACCINE 2021-09-03 00:00:00 Completed [facility] [place] SARS-COV-2 COVID-19 MODERNA 0.25ML BOOSTER VACCINE 2021-09-03 00:00:00 Completed [facility] [place] SARS-COV-2 COVID-19 MODERNA 0.25ML BOOSTER VACCINE 2021-09-03 00:00:00 Completed [facility] [place] SARS-COV-2 COVID-19 MODERNA 0.25ML BOOSTER VACCINE 2021-09-03 00:00:00 Completed [facility] [place] SARS-COV-2 COVID-19 MODERNA 0.25ML BOOSTER VACCINE 2021-09-03 00:00:00 Completed [facility] [place] SARS-COV-2 COVID-19 MODERNA 0.25ML BOOSTER VACCINE 2021-09-03 00:00:00 Completed [facility] [place] SARS-COV-2 COVID-19 MODERNA 0.25ML BOOSTER VACCINE 2021-09-03 00:00:00 Completed [facility] [place] SARS-COV-2 COVID-19 MODERNA 0.25ML BOOSTER VACCINE 2021-09-03 00:00:00 Completed [facility] [place] SARS-COV-2 COVID-19 MODERNA 0.25ML BOOSTER VACCINE 2021-09-03 00:00:00 Completed [facility] [place] SARS-COV-2 COVID-19 MODERNA 0.25ML BOOSTER VACCINE 2021-09-03 00:00:00 Completed [facility] [place] SARS-COV-2 COVID-19 MODERNA 0.25ML BOOSTER VACCINE 2021-09-03 00:00:00 Completed [facility] [place] SARS-COV-2 COVID-19 MODERNA 0.25ML BOOSTER VACCINE 2021-09-03 00:00:00 Completed [facility] [place] SARS-COV-2 COVID-19 MODERNA 0.25ML BOOSTER VACCINE 2021-09-03 00:00:00 Completed [facility] [place] SARS-COV-2 COVID-19 MODERNA 0.25ML BOOSTER VACCINE 2021-09-03 00:00:00 Completed [facility] [place] SARS-COV-2 COVID-19 MODERNA 0.25ML BOOSTER VACCINE 2021-09-03 00:00:00 Completed [facility] [place] SARS-COV-2 COVID-19 MODERNA 0.25ML BOOSTER VACCINE 2021-09-03 00:00:00 Completed [facility] [place] SARS-COV-2 COVID-19 MODERNA 0.25ML BOOSTER VACCINE 2021-09-03 00:00:00 Completed [facility] [place] SARS-COV-2 COVID-19 MODERNA 0.25ML BOOSTER VACCINE 2021-09-03 00:00:00 Completed [facility] [place] SARS-COV-2 COVID-19 MODERNA 0.25ML BOOSTER VACCINE 2021-09-03 00:00:00 Completed [facility] [place] SARS-COV-2 COVID-19 MODERNA 0.25ML BOOSTER VACCINE 2021-09-03 00:00:00 Completed [facility] [place] SARS-COV-2 COVID-19 MODERNA 0.25ML BOOSTER VACCINE 2021-09-03 00:00:00 Completed [facility] [place] SARS-COV-2 COVID-19 MODERNA 0.25ML BOOSTER VACCINE 2021-09-03 00:00:00 Completed [facility] [place] SARS-COV-2 COVID-19 MODERNA 0.25ML BOOSTER VACCINE 2021-09-03 00:00:00 Completed [facility] [place] SARS-COV-2 COVID-19 MODERNA 0.25ML BOOSTER VACCINE 2021-09-03 00:00:00 Completed [facility] [place] SARS-COV-2 COVID-19 MODERNA 0.25ML BOOSTER VACCINE 2021-09-03 00:00:00 Completed [facility] [place] SARS-COV-2 COVID-19 MODERNA 0.25ML BOOSTER VACCINE 2021-09-03 00:00:00 Completed [facility] [place] SARS-COV-2 COVID-19 MODERNA 0.25ML BOOSTER VACCINE 2021-09-03 00:00:00 Completed [facility] [place] SARS-COV-2 COVID-19 MODERNA 0.25ML BOOSTER VACCINE 2021-09-03 00:00:00 Completed [facility] [place] SARS-COV-2 COVID-19 MODERNA 0.25ML BOOSTER VACCINE 2021-09-03 00:00:00 Completed [facility] [place] SARS-COV-2 COVID-19 MODERNA 0.25ML BOOSTER VACCINE 2021-09-03 00:00:00 Completed [facility] [place] SARS-COV-2 COVID-19 MODERNA 0.25ML BOOSTER VACCINE 2021-09-03 00:00:00 Completed [facility] [place] SARS-COV-2 COVID-19 MODERNA 0.25ML BOOSTER VACCINE 2021-09-03 00:00:00 Completed [facility] [place] SARS-COV-2 COVID-19 MODERNA 0.25ML BOOSTER VACCINE 2021-09-03 00:00:00 Completed [facility] [place] SARS-COV-2 COVID-19 MODERNA 0.25ML BOOSTER VACCINE 2021-09-03 00:00:00 Completed [facility] [place] SARS-COV-2 COVID-19 MODERNA 0.25ML BOOSTER VACCINE 2021-09-03 00:00:00 Completed [facility] [place] SARS-COV-2 COVID-19 MODERNA 0.25ML BOOSTER VACCINE 2021-09-03 00:00:00 Completed [facility] [place] SARS-COV-2 COVID-19 MODERNA 0.25ML BOOSTER VACCINE 2021-09-03 00:00:00 Completed [facility] [place] SARS-COV-2 COVID-19 MODERNA 0.25ML BOOSTER VACCINE 2021-09-03 00:00:00 Completed [facility] [place] SARS-COV-2 COVID-19 MODERNA 0.25ML BOOSTER VACCINE 2021-09-03 00:00:00 Completed [facility] [place] SARS-COV-2 COVID-19 MODERNA 0.25ML BOOSTER VACCINE 2021-09-03 00:00:00 Completed [facility] [place] SARS-COV-2 COVID-19 MODERNA 0.25ML BOOSTER VACCINE 2021-09-03 00:00:00 Completed [facility] [place] SARS-COV-2 COVID-19 MODERNA 0.25ML BOOSTER VACCINE 2021-09-03 00:00:00 Completed [facility] [place] SARS-COV-2 COVID-19 MODERNA 0.25ML BOOSTER VACCINE 2021-09-03 00:00:00 Completed [facility] [place] SARS-COV-2 COVID-19 MODERNA 0.25ML BOOSTER VACCINE 2021-09-03 00:00:00 Completed [facility] [place] SARS-COV-2 COVID-19 MODERNA 0.25ML BOOSTER VACCINE 2021-09-03 00:00:00 Completed [facility] [place] SARS-COV-2 COVID-19 MODERNA 0.25ML BOOSTER VACCINE 2021-09-03 00:00:00 Completed [facility] [place] SARS-COV-2 COVID-19 MODERNA 0.25ML BOOSTER VACCINE 2021-09-03 00:00:00 Completed [facility] [place] SARS-COV-2 COVID-19 MODERNA 0.25ML BOOSTER VACCINE 2021-09-03 00:00:00 Completed [facility] [place] SARS-COV-2 COVID-19 MODERNA 0.25ML BOOSTER VACCINE 2021-09-03 00:00:00 Completed [facility] [place] SARS-COV-2 COVID-19 MODERNA 0.25ML BOOSTER VACCINE 2021-09-03 00:00:00 Completed [facility] [place] SARS-COV-2 COVID-19 MODERNA 0.25ML BOOSTER VACCINE 2021-09-03 00:00:00 Completed [facility] [place] SARS-COV-2 COVID-19 MODERNA 0.25ML BOOSTER VACCINE 2021-09-03 00:00:00 Completed [facility] [place] SARS-COV-2 COVID-19 MODERNA 0.25ML BOOSTER VACCINE 2021-09-03 00:00:00 Completed [facility] [place] SARS-COV-2 COVID-19 MODERNA 0.25ML BOOSTER VACCINE 2021-09-03 00:00:00 Completed [facility] [place] SARS-COV-2 COVID-19 MODERNA 0.25ML BOOSTER VACCINE 2021-09-03 00:00:00 Completed [facility] [place] SARS-COV-2 COVID-19 MODERNA 0.25ML BOOSTER VACCINE 2021-09-03 00:00:00 Completed [facility] [place] SARS-COV-2 COVID-19 MODERNA 0.25ML BOOSTER VACCINE 2021-09-03 00:00:00 Completed [facility] [place] SARS-COV-2 COVID-19 MODERNA 0.25ML BOOSTER VACCINE 2021-09-03 00:00:00 Completed [facility] [place] SARS-COV-2 COVID-19 MODERNA 0.25ML BOOSTER VACCINE 2021-09-03 00:00:00 Completed [facility] [place] SARS-COV-2 COVID-19 MODERNA 0.25ML BOOSTER VACCINE 2021-09-03 00:00:00 Completed [facility] [place] SARS-COV-2 COVID-19 MODERNA 0.25ML BOOSTER VACCINE 2021-09-03 00:00:00 Completed [facility] [place] SARS-COV-2 COVID-19 MODERNA 0.25ML BOOSTER VACCINE 2021-09-03 00:00:00 Completed [facility] [place] SARS-COV-2 COVID-19 MODERNA 0.25ML BOOSTER VACCINE 2021-09-03 00:00:00 Completed [facility] [place] SARS-COV-2 COVID-19 MODERNA 0.25ML BOOSTER VACCINE 2021-09-03 00:00:00 Completed [facility] [place] SARS-COV-2 COVID-19 MODERNA 0.25ML BOOSTER VACCINE 2021-09-03 00:00:00 Completed [facility] [place] SARS-COV-2 COVID-19 MODERNA 0.25ML BOOSTER VACCINE 2021-09-03 00:00:00 Completed [facility] [place] SARS-COV-2 COVID-19 MODERNA 0.25ML BOOSTER VACCINE 2021-09-03 00:00:00 Completed [facility] [place] SARS-COV-2 COVID-19 MODERNA 0.25ML BOOSTER VACCINE 2021-09-03 00:00:00 Completed [facility] [place] SARS-COV-2 COVID-19 MODERNA 0.25ML BOOSTER VACCINE 2021-09-03 00:00:00 Completed [facility] [place] SARS-COV-2 COVID-19 MODERNA 0.25ML BOOSTER VACCINE 2021-09-03 00:00:00 Completed [facility] [place] SARS-COV-2 COVID-19 MODERNA 0.25ML BOOSTER VACCINE 2021-09-03 00:00:00 Completed [facility] [place] SARS-COV-2 COVID-19 MODERNA 0.25ML BOOSTER VACCINE 2021-09-03 00:00:00 Completed [facility] [place] SARS-COV-2 COVID-19 MODERNA 0.25ML BOOSTER VACCINE 2021-09-03 00:00:00 Completed [facility] [place] SARS-COV-2 COVID-19 MODERNA 0.25ML BOOSTER VACCINE 2021-09-03 00:00:00 Completed [facility] [place] SARS-COV-2 COVID-19 MODERNA 0.25ML BOOSTER VACCINE 2021-09-03 00:00:00 Completed [facility] [place] Influenza Virus Vaccine 2021-07-01 00:00:00 Completed [facility] [place] Pneumococcal 7 Conjugate, PCV7 (Prevnar7) 2021-07-01 00:00:00 Completed [facility] [place] Influenza Virus Vaccine (3+ yrs) 2021-07-01 00:00:00 Completed [facility] [place] Influenza Virus Vaccine Quad IM 3+ YRS 2021-07-01 00:00:00 Completed [facility] [place] SARS-COV-2 COVID-19 MODERNA 12+ YRS VACCINE 2021-07-01 00:00:00 Completed [facility] [place] Influenza Virus Vaccine,quad Im,preserve Free 65+ (FLUAD) 2021-07-01 00:00:00 Completed [facility] [place] Pneumococcal 13 Conjugate, PCV13 (Prevnar 13) 2021-07-01 00:00:00 Completed [facility] [place] Pneumococcal 13 Conjugate, PCV13 (Prevnar 13) 2021-05-07 00:00:00 Completed [facility] [place] Pneumococcal 13 Conjugate, PCV13 (Prevnar 13) 2021-05-07 00:00:00 Completed [facility] [place] Pneumococcal 13 Conjugate, PCV13 (Prevnar 13) 2021-05-07 00:00:00 Completed [facility] [place] Pneumococcal 13 Conjugate, PCV13 (Prevnar 13) 2021-05-07 00:00:00 Completed [facility] [place] Pneumococcal 13 Conjugate, PCV13 (Prevnar 13) 2021-05-07 00:00:00 Completed [facility] [place] Pneumococcal 13 Conjugate, PCV13 (Prevnar 13) 2021-05-07 00:00:00 Completed [facility] [place] Pneumococcal 13 Conjugate, PCV13 (Prevnar 13) 2021-05-07 00:00:00 Completed [facility] [place] Pneumococcal 13 Conjugate, PCV13 (Prevnar 13) 2021-05-07 00:00:00 Completed [facility] [place] Pneumococcal 13 Conjugate, PCV13 (Prevnar 13) 2021-05-07 00:00:00 Completed [facility] [place] Pneumococcal 13 Conjugate, PCV13 (Prevnar 13) 2021-05-07 00:00:00 Completed [facility] [place] Pneumococcal 13 Conjugate, PCV13 (Prevnar 13) 2021-05-07 00:00:00 Completed [facility] [place] Pneumococcal 13 Conjugate, PCV13 (Prevnar 13) 2021-05-07 00:00:00 Completed [facility] [place] Pneumococcal 13 Conjugate, PCV13 (Prevnar 13) 2021-05-07 00:00:00 Completed [facility] [place] Pneumococcal 13 Conjugate, PCV13 (Prevnar 13) 2021-05-07 00:00:00 Completed [facility] [place] Pneumococcal 13 Conjugate, PCV13 (Prevnar 13) 2021-05-07 00:00:00 Completed [facility] [place] Pneumococcal 13 Conjugate, PCV13 (Prevnar 13) 2021-05-07 00:00:00 Completed [facility] [place] Pneumococcal 13 Conjugate, PCV13 (Prevnar 13) 2021-05-07 00:00:00 Completed [facility] [place] Pneumococcal 13 Conjugate, PCV13 (Prevnar 13) 2021-05-07 00:00:00 Completed [facility] [place] Pneumococcal 13 Conjugate, PCV13 (Prevnar 13) 2021-05-07 00:00:00 Completed [facility] [place] Pneumococcal 13 Conjugate, PCV13 (Prevnar 13) 2021-05-07 00:00:00 Completed [facility] [place] Pneumococcal 13 Conjugate, PCV13 (Prevnar 13) 2021-05-07 00:00:00 Completed [facility] [place] Pneumococcal 13 Conjugate, PCV13 (Prevnar 13) 2021-05-07 00:00:00 Completed [facility] [place] Pneumococcal 13 Conjugate, PCV13 (Prevnar 13) 2021-05-07 00:00:00 Completed [facility] [place] Pneumococcal 13 Conjugate, PCV13 (Prevnar 13) 2021-05-07 00:00:00 Completed [facility] [place] Pneumococcal 13 Conjugate, PCV13 (Prevnar 13) 2021-05-07 00:00:00 Completed [facility] Pneumococcal 13 Conjugate, PCV13 (Prevnar 13) 2021-05-07 00:00:00 Completed [facility] Pneumococcal 13 Conjugate, PCV13 (Prevnar 13) 2021-05-07 00:00:00 Completed [facility] Pneumococcal 13 Conjugate, PCV13 (Prevnar 13) 2021-05-07 00:00:00 Completed [facility] Pneumococcal 13 Conjugate, PCV13 (Prevnar 13) 2021-05-07 00:00:00 Completed [facility] Pneumococcal 13 Conjugate, PCV13 (Prevnar 13) 2021-05-07 00:00:00 Completed [facility] Pneumococcal 13 Conjugate, PCV13 (Prevnar 13) 2021-05-07 00:00:00 Completed [facility] Pneumococcal 13 Conjugate, PCV13 (Prevnar 13) 2021-05-07 00:00:00 Completed [facility] Pneumococcal 13 Conjugate, PCV13 (Prevnar 13) 2021-05-07 00:00:00 Completed [facility] Pneumococcal 13 Conjugate, PCV13 (Prevnar 13) 2021-05-07 00:00:00 Completed [facility] Pneumococcal 13 Conjugate, PCV13 (Prevnar 13) 2021-05-07 00:00:00 Completed [facility] Pneumococcal 13 Conjugate, PCV13 (Prevnar 13) 2021-05-07 00:00:00 Completed [facility] Pneumococcal 13 Conjugate, PCV13 (Prevnar 13) 2021-05-07 00:00:00 Completed [facility] Pneumococcal 13 Conjugate, PCV13 (Prevnar 13) 2021-05-07 00:00:00 Completed [facility] Pneumococcal 13 Conjugate, PCV13 (Prevnar 13) 2021-05-07 00:00:00 Completed [facility] Pneumococcal 13 Conjugate, PCV13 (Prevnar 13) 2021-05-07 00:00:00 Completed [facility] Pneumococcal 13 Conjugate, PCV13 (Prevnar 13) 2021-05-07 00:00:00 Completed [facility] Pneumococcal 13 Conjugate, PCV13 (Prevnar 13) 2021-05-07 00:00:00 Completed [facility] Pneumococcal 13 Conjugate, PCV13 (Prevnar 13) 2021-05-07 00:00:00 Completed [facility] Pneumococcal 13 Conjugate, PCV13 (Prevnar 13) 2021-05-07 00:00:00 Completed [facility] Pneumococcal 13 Conjugate, PCV13 (Prevnar 13) 2021-05-07 00:00:00 Completed [facility] Pneumococcal 13 Conjugate, PCV13 (Prevnar 13) 2021-05-07 00:00:00 Completed [facility] Pneumococcal 13 Conjugate, PCV13 (Prevnar 13) 2021-05-07 00:00:00 Completed [facility] Pneumococcal 13 Conjugate, PCV13 (Prevnar 13) 2021-05-07 00:00:00 Completed [facility] Pneumococcal 13 Conjugate, PCV13 (Prevnar 13) 2021-05-07 00:00:00 Completed [facility] Pneumococcal 13 Conjugate, PCV13 (Prevnar 13) 2021-05-07 00:00:00 Completed [facility] Pneumococcal 13 Conjugate, PCV13 (Prevnar 13) 2021-05-07 00:00:00 Completed [facility] Pneumococcal 13 Conjugate, PCV13 (Prevnar 13) 2021-05-07 00:00:00 Completed [facility] Pneumococcal 13 Conjugate, PCV13 (Prevnar 13) 2021-05-07 00:00:00 Completed [facility] Pneumococcal 13 Conjugate, PCV13 (Prevnar 13) 2021-05-07 00:00:00 Completed [facility] Pneumococcal 13 Conjugate, PCV13 (Prevnar 13) 2021-05-07 00:00:00 Completed [facility] Pneumococcal 13 Conjugate, PCV13 (Prevnar 13) 2021-05-07 00:00:00 Completed [facility] Pneumococcal 13 Conjugate, PCV13 (Prevnar 13) 2021-05-07 00:00:00 Completed [facility] Pneumococcal 13 Conjugate, PCV13 (Prevnar 13) 2021-05-07 00:00:00 Completed [facility] Pneumococcal 13 Conjugate, PCV13 (Prevnar 13) 2021-05-07 00:00:00 Completed [facility] Pneumococcal 13 Conjugate, PCV13 (Prevnar 13) 2021-05-07 00:00:00 Completed [facility] Pneumococcal 13 Conjugate, PCV13 (Prevnar 13) 2021-05-07 00:00:00 Completed [facility] Pneumococcal 13 Conjugate, PCV13 (Prevnar 13) 2021-05-07 00:00:00 Completed [facility] Pneumococcal 13 Conjugate, PCV13 (Prevnar 13) 2021-05-07 00:00:00 Completed [facility] Pneumococcal 13 Conjugate, PCV13 (Prevnar 13) 2021-05-07 00:00:00 Completed [facility] Pneumococcal 13 Conjugate, PCV13 (Prevnar 13) 2021-05-07 00:00:00 Completed [facility] Pneumococcal 13 Conjugate, PCV13 (Prevnar 13) 2021-05-07 00:00:00 Completed [facility] Pneumococcal 13 Conjugate, PCV13 (Prevnar 13) 2021-05-07 00:00:00 Completed [facility] Pneumococcal 13 Conjugate, PCV13 (Prevnar 13) 2021-05-07 00:00:00 Completed [facility] Pneumococcal 13 Conjugate, PCV13 (Prevnar 13) 2021-05-07 00:00:00 Completed [facility] Pneumococcal 13 Conjugate, PCV13 (Prevnar 13) 2021-05-07 00:00:00 Completed [facility] Pneumococcal 13 Conjugate, PCV13 (Prevnar 13) 2021-05-07 00:00:00 Completed [facility] Pneumococcal 13 Conjugate, PCV13 (Prevnar 13) 2021-05-07 00:00:00 Completed [facility] Pneumococcal 13 Conjugate, PCV13 (Prevnar 13) 2021-05-07 00:00:00 Completed [facility] Pneumococcal 13 Conjugate, PCV13 (Prevnar 13) 2021-05-07 00:00:00 Completed [facility] Pneumococcal 13 Conjugate, PCV13 (Prevnar 13) 2021-05-07 00:00:00 Completed [facility] Pneumococcal 13 Conjugate, PCV13 (Prevnar 13) 2021-05-07 00:00:00 Completed [facility] Pneumococcal 13 Conjugate, PCV13 (Prevnar 13) 2021-05-07 00:00:00 Completed [facility] Influenza Virus Vaccine,quad Im,preserve Free 65+ 2021-03-29 00:00:00 Completed [facility] Influenza Virus Vaccine,quad Im,preserve Free 65+ 2021-03-29 00:00:00 Completed [facility] Influenza Virus Vaccine,quad Im,preserve Free 65+ 2021-03-29 00:00:00 Completed [facility] Influenza Virus Vaccine,quad Im,preserve Free 65+ 2021-03-29 00:00:00 Completed [facility] Influenza Virus Vaccine,quad Im,preserve Free 65+ 2021-03-29 00:00:00 Completed [facility] Influenza Virus Vaccine,quad Im,preserve Free 652021-03-29 00:00:00 Completed [facility] Influenza Virus Vaccine,quad Im,preserve Free 652021-03-29 00:00:00 Completed [facility] Influenza Virus Vaccine,quad Im,preserve Free 652021-03-29 00:00:00 Completed [facility] Influenza Virus Vaccine,quad Im,preserve Free 652021-03-29 00:00:00 Completed [facility] Influenza Virus Vaccine,quad Im,preserve Free 652021-03-29 00:00:00 Completed [facility] Influenza Virus Vaccine,quad Im,preserve Free 652021-03-29 00:00:00 Completed [facility] Influenza Virus Vaccine,quad Im,preserve Free 652021-03-29 00:00:00 Completed [facility] Influenza Virus Vaccine,quad Im,preserve Free 652021-03-29 00:00:00 Completed [facility] Influenza Virus Vaccine,quad Im,preserve Free 652021-03-29 00:00:00 Completed [facility] Influenza Virus Vaccine,quad Im,preserve Free 652021-03-29 00:00:00 Completed [facility] Influenza Virus Vaccine,quad Im,preserve Free 652021-03-29 00:00:00 Completed [facility] Influenza Virus Vaccine,quad Im,preserve Free 2021-03-29 00:00:00 Completed [facility] Influenza Virus Vaccine,quad Im,preserve Free 652021-03-29 00:00:00 Completed [facility] Influenza Virus Vaccine,quad Im,preserve Free 652021-03-29 00:00:00 Completed [facility] Influenza Virus Vaccine,quad Im,preserve Free 652021-03-29 00:00:00 Completed [facility] Influenza Virus Vaccine,quad Im,preserve Free 652021-03-29 00:00:00 Completed [facility] Influenza Virus Vaccine,quad Im,preserve Free 2021-03-29 00:00:00 Completed [facility] Influenza Virus Vaccine,quad Im,preserve Free 65+ 2021-03-29 00:00:00 Completed [facility] Influenza Virus Vaccine,quad Im,preserve Free 652021-03-29 00:00:00 Completed [facility] Influenza Virus Vaccine,quad Im,preserve Free 652021-03-29 00:00:00 Completed [facility] Influenza Virus Vaccine,quad Im,preserve Free 652021-03-29 00:00:00 Completed [facility] Influenza Virus Vaccine,quad Im,preserve Free 652021-03-29 00:00:00 Completed [facility] Influenza Virus Vaccine,quad Im,preserve Free 652021-03-29 00:00:00 Completed [facility] Influenza Virus Vaccine,quad Im,preserve Free 652021-03-29 00:00:00 Completed [facility] Influenza Virus Vaccine,quad Im,preserve Free 652021-03-29 00:00:00 Completed [facility] Influenza Virus Vaccine,quad Im,preserve Free 652021-03-29 00:00:00 Completed [facility] Influenza Virus Vaccine,quad Im,preserve Free 652021-03-29 00:00:00 Completed [facility] Influenza Virus Vaccine,quad Im,preserve Free 2021-03-29 00:00:00 Completed [facility] Influenza Virus Vaccine,quad Im,preserve Free 652021-03-29 00:00:00 Completed [facility] Influenza Virus Vaccine,quad Im,preserve Free 2021-03-29 00:00:00 Completed [facility] Influenza Virus Vaccine,quad Im,preserve Free 652021-03-29 00:00:00 Completed [facility] Influenza Virus Vaccine,quad Im,preserve Free 652021-03-29 00:00:00 Completed [facility] Influenza Virus Vaccine,quad Im,preserve Free 652021-03-29 00:00:00 Completed [facility] Influenza Virus Vaccine,quad Im,preserve Free 652021-03-29 00:00:00 Completed [facility] Influenza Virus Vaccine,quad Im,preserve Free 652021-03-29 00:00:00 Completed [facility] Influenza Virus Vaccine,quad Im,preserve Free 652021-03-29 00:00:00 Completed [facility] Influenza Virus Vaccine,quad Im,preserve Free 652021-03-29 00:00:00 Completed [facility] Influenza Virus Vaccine,quad Im,preserve Free 652021-03-29 00:00:00 Completed [facility] Influenza Virus Vaccine,quad Im,preserve Free 652021-03-29 00:00:00 Completed [facility] Influenza Virus Vaccine,quad Im,preserve Free 652021-03-29 00:00:00 Completed [facility] Influenza Virus Vaccine,quad Im,preserve Free 652021-03-29 00:00:00 Completed [facility] Influenza Virus Vaccine,quad Im,preserve Free 652021-03-29 00:00:00 Completed [facility] Influenza Virus Vaccine,quad Im,preserve Free 652021-03-29 00:00:00 Completed [facility] Influenza Virus Vaccine,quad Im,preserve Free 652021-03-29 00:00:00 Completed [facility] Influenza Virus Vaccine,quad Im,preserve Free 652021-03-29 00:00:00 Completed [facility] Influenza Virus Vaccine,quad Im,preserve Free 652021-03-29 00:00:00 Completed [facility] Influenza Virus Vaccine,quad Im,preserve Free 652021-03-29 00:00:00 Completed [facility] Influenza Virus Vaccine,quad Im,preserve Free 2021-03-29 00:00:00 Completed [facility] Influenza Virus Vaccine,quad Im,preserve Free 652021-03-29 00:00:00 Completed [facility] Influenza Virus Vaccine,quad Im,preserve Free 652021-03-29 00:00:00 Completed [facility] Influenza Virus Vaccine,quad Im,preserve Free 652021-03-29 00:00:00 Completed [facility] Influenza Virus Vaccine,quad Im,preserve Free 652021-03-29 00:00:00 Completed [facility] Influenza Virus Vaccine,quad Im,preserve Free 652021-03-29 00:00:00 Completed [facility] Influenza Virus Vaccine,quad Im,preserve Free 65+ 2021-03-29 00:00:00 Completed [facility] Influenza Virus Vaccine,quad Im,preserve Free 65+ 2021-03-29 00:00:00 Completed [facility] Influenza Virus Vaccine,quad Im,preserve Free 65+ 2021-03-29 00:00:00 Completed [facility] Influenza Virus Vaccine,quad Im,preserve Free 65+ 2021-03-29 00:00:00 Completed [facility] Influenza Virus Vaccine,quad Im,preserve Free 65+ 2021-03-29 00:00:00 Completed [facility] Influenza Virus Vaccine,quad Im,preserve Free 65+ 2021-03-29 00:00:00 Completed [facility] Influenza Virus Vaccine,quad Im,preserve Free 65+ 2021-03-29 00:00:00 Completed [facility] Influenza Virus Vaccine,quad Im,preserve Free 65+ 2021-03-29 00:00:00 Completed [facility] Influenza Virus Vaccine,quad Im,preserve Free 65+ 2021-03-29 00:00:00 Completed [facility] Influenza Virus Vaccine,quad Im,preserve Free 65+ 2021-03-29 00:00:00 Completed [facility] Influenza Virus Vaccine,quad Im,preserve Free 65+ 2021-03-29 00:00:00 Completed [facility] Influenza Virus Vaccine,quad Im,preserve Free 65+ 2021-03-29 00:00:00 Completed [facility] Influenza Virus Vaccine,quad Im,preserve Free 65+ 2021-03-29 00:00:00 Completed [facility] Influenza Virus Vaccine,quad Im,preserve Free 65+ 2021-03-29 00:00:00 Completed [facility] Influenza Virus Vaccine,quad Im,preserve Free 65+ 2021-03-29 00:00:00 Completed [facility] Influenza Virus Vaccine,quad Im,preserve Free 65+ (FLUAD) 2021-03-29 00:00:00 Completed [facility] Influenza Virus Vaccine,quad Im,preserve Free 65+ (FLUAD) 2021-03-29 00:00:00 Completed [facility] Influenza Virus Vaccine,quad Im,preserve Free 65+ (FLUAD) 2021-03-29 00:00:00 Completed [facility] Influenza Virus Vaccine,quad Im,preserve Free 65+ (FLUAD) 2021-03-29 00:00:00 Completed [facility] SARS-COV-2 COVID-19 MODERNA 12+ YRS VACCINE 2020-12-29 00:00:00 Completed [facility] SARS-COV-2 COVID-19 MODERNA 12+ YRS VACCINE 2020-12-29 00:00:00 Completed [facility] SARS-COV-2 COVID-19 MODERNA 12+ YRS VACCINE 2020-12-29 00:00:00 Completed [facility] SARS-COV-2 COVID-19 MODERNA 12+ YRS VACCINE 2020-12-29 00:00:00 Completed [facility] SARS-COV-2 COVID-19 MODERNA 12+ YRS VACCINE 2020-12-29 00:00:00 Completed [facility] SARS-COV-2 COVID-19 MODERNA 12+ YRS VACCINE 2020-12-29 00:00:00 Completed [facility] SARS-COV-2 COVID-19 MODERNA 12+ YRS VACCINE 2020-12-29 00:00:00 Completed [facility] SARS-COV-2 COVID-19 MODERNA 12+ YRS VACCINE 2020-12-29 00:00:00 Completed [facility] SARS-COV-2 COVID-19 MODERNA 12+ YRS VACCINE 2020-12-29 00:00:00 Completed [facility] SARS-COV-2 COVID-19 MODERNA 12+ YRS VACCINE 2020-12-29 00:00:00 Completed [facility] SARS-COV-2 COVID-19 MODERNA 12+ YRS VACCINE 2020-12-29 00:00:00 Completed [facility] SARS-COV-2 COVID-19 MODERNA 12+ YRS VACCINE 2020-12-29 00:00:00 Completed [facility] SARS-COV-2 COVID-19 MODERNA 12+ YRS VACCINE 2020-12-29 00:00:00 Completed [facility] SARS-COV-2 COVID-19 MODERNA 12+ YRS VACCINE 2020-12-29 00:00:00 Completed [facility] SARS-COV-2 COVID-19 MODERNA 12+ YRS VACCINE 2020-12-29 00:00:00 Completed [facility] SARS-COV-2 COVID-19 MODERNA 12+ YRS VACCINE 2020-12-29 00:00:00 Completed [facility] SARS-COV-2 COVID-19 MODERNA 12+ YRS VACCINE 2020-12-29 00:00:00 Completed [facility] SARS-COV-2 COVID-19 MODERNA 12+ YRS VACCINE 2020-12-29 00:00:00 Completed [facility] SARS-COV-2 COVID-19 MODERNA 12+ YRS VACCINE 2020-12-29 00:00:00 Completed [facility] SARS-COV-2 COVID-19 MODERNA 12+ YRS VACCINE 2020-12-29 00:00:00 Completed [facility] SARS-COV-2 COVID-19 MODERNA 12+ YRS VACCINE 2020-12-29 00:00:00 Completed [facility] SARS-COV-2 COVID-19 MODERNA 12+ YRS VACCINE 2020-12-29 00:00:00 Completed [facility] SARS-COV-2 COVID-19 MODERNA 12+ YRS VACCINE 2020-12-29 00:00:00 Completed [facility] SARS-COV-2 COVID-19 MODERNA 12+ YRS VACCINE 2020-12-29 00:00:00 Completed [facility] SARS-COV-2 COVID-19 MODERNA 12+ YRS VACCINE 2020-12-29 00:00:00 Completed [facility] SARS-COV-2 COVID-19 MODERNA 12+ YRS VACCINE 2020-12-29 00:00:00 Completed [facility] SARS-COV-2 COVID-19 MODERNA 12+ YRS VACCINE 2020-12-29 00:00:00 Completed [facility] SARS-COV-2 COVID-19 MODERNA 12+ YRS VACCINE 2020-12-29 00:00:00 Completed [facility] SARS-COV-2 COVID-19 MODERNA 12+ YRS VACCINE 2020-12-29 00:00:00 Completed [facility] SARS-COV-2 COVID-19 MODERNA 12+ YRS VACCINE 2020-12-29 00:00:00 Completed [facility] SARS-COV-2 COVID-19 MODERNA 12+ YRS VACCINE 2020-12-29 00:00:00 Completed [facility] SARS-COV-2 COVID-19 MODERNA 12+ YRS VACCINE 2020-12-29 00:00:00 Completed [facility] SARS-COV-2 COVID-19 MODERNA 12+ YRS VACCINE 2020-12-29 00:00:00 Completed [facility] SARS-COV-2 COVID-19 MODERNA 12+ YRS VACCINE 2020-12-29 00:00:00 Completed [facility] SARS-COV-2 COVID-19 MODERNA 12+ YRS VACCINE 2020-12-29 00:00:00 Completed [facility] SARS-COV-2 COVID-19 MODERNA 12+ YRS VACCINE 2020-12-29 00:00:00 Completed [facility] SARS-COV-2 COVID-19 MODERNA 12+ YRS VACCINE 2020-12-29 00:00:00 Completed [facility] SARS-COV-2 COVID-19 MODERNA 12+ YRS VACCINE 2020-12-29 00:00:00 Completed [facility] SARS-COV-2 COVID-19 MODERNA 12+ YRS VACCINE 2020-12-29 00:00:00 Completed [facility] SARS-COV-2 COVID-19 MODERNA 12+ YRS VACCINE 2020-12-29 00:00:00 Completed [facility] SARS-COV-2 COVID-19 MODERNA 12+ YRS VACCINE 2020-12-29 00:00:00 Completed [facility] SARS-COV-2 COVID-19 MODERNA 12+ YRS VACCINE 2020-12-29 00:00:00 Completed [facility] SARS-COV-2 COVID-19 MODERNA 12+ YRS VACCINE 2020-12-29 00:00:00 Completed [facility] SARS-COV-2 COVID-19 MODERNA 12+ YRS VACCINE 2020-12-29 00:00:00 Completed [facility] SARS-COV-2 COVID-19 MODERNA 12+ YRS VACCINE 2020-12-29 00:00:00 Completed [facility] SARS-COV-2 COVID-19 MODERNA 12+ YRS VACCINE 2020-12-29 00:00:00 Completed [facility] SARS-COV-2 COVID-19 MODERNA 12+ YRS VACCINE 2020-12-29 00:00:00 Completed [facility] SARS-COV-2 COVID-19 MODERNA 12+ YRS VACCINE 2020-12-29 00:00:00 Completed [facility] SARS-COV-2 COVID-19 MODERNA 12+ YRS VACCINE 2020-12-29 00:00:00 Completed [facility] SARS-COV-2 COVID-19 MODERNA 12+ YRS VACCINE 2020-12-29 00:00:00 Completed [facility] SARS-COV-2 COVID-19 MODERNA 12+ YRS VACCINE 2020-12-29 00:00:00 Completed [facility] SARS-COV-2 COVID-19 MODERNA 12+ YRS VACCINE 2020-12-29 00:00:00 Completed [facility] SARS-COV-2 COVID-19 MODERNA 12+ YRS VACCINE 2020-12-29 00:00:00 Completed [facility] SARS-COV-2 COVID-19 MODERNA 12+ YRS VACCINE 2020-12-29 00:00:00 Completed [facility] SARS-COV-2 COVID-19 MODERNA 12+ YRS VACCINE 2020-12-29 00:00:00 Completed [facility] SARS-COV-2 COVID-19 MODERNA 12+ YRS VACCINE 2020-12-29 00:00:00 Completed [facility] SARS-COV-2 COVID-19 MODERNA 12+ YRS VACCINE 2020-12-29 00:00:00 Completed [facility] SARS-COV-2 COVID-19 MODERNA 12+ YRS VACCINE 2020-12-29 00:00:00 Completed [facility] SARS-COV-2 COVID-19 MODERNA 12+ YRS VACCINE 2020-12-29 00:00:00 Completed [facility] SARS-COV-2 COVID-19 MODERNA 12+ YRS VACCINE 2020-12-29 00:00:00 Completed [facility] SARS-COV-2 COVID-19 MODERNA 12+ YRS VACCINE 2020-12-29 00:00:00 Completed [facility] SARS-COV-2 COVID-19 MODERNA 12+ YRS VACCINE 2020-12-29 00:00:00 Completed [facility] SARS-COV-2 COVID-19 MODERNA 12+ YRS VACCINE 2020-12-29 00:00:00 Completed [facility] SARS-COV-2 COVID-19 MODERNA 12+ YRS VACCINE 2020-12-29 00:00:00 Completed [facility] SARS-COV-2 COVID-19 MODERNA 12+ YRS VACCINE 2020-12-29 00:00:00 Completed [facility] SARS-COV-2 COVID-19 MODERNA 12+ YRS VACCINE 2020-12-29 00:00:00 Completed [facility] SARS-COV-2 COVID-19 MODERNA 12+ YRS VACCINE 2020-12-29 00:00:00 Completed [facility] SARS-COV-2 COVID-19 MODERNA 12+ YRS VACCINE 2020-12-29 00:00:00 Completed [facility] SARS-COV-2 COVID-19 MODERNA 12+ YRS VACCINE 2020-12-29 00:00:00 Completed [facility] SARS-COV-2 COVID-19 MODERNA 12+ YRS VACCINE 2020-12-29 00:00:00 Completed [facility] SARS-COV-2 COVID-19 MODERNA 12+ YRS VACCINE 2020-12-29 00:00:00 Completed [facility] SARS-COV-2 COVID-19 MODERNA 12+ YRS VACCINE 2020-12-29 00:00:00 Completed [facility] SARS-COV-2 COVID-19 MODERNA 12+ YRS VACCINE 2020-12-29 00:00:00 Completed [facility] SARS-COV-2 COVID-19 MODERNA 12+ YRS VACCINE 2020-12-29 00:00:00 Completed [facility] SARS-COV-2 COVID-19 MODERNA 12+ YRS VACCINE 2020-12-29 00:00:00 Completed [facility] SARS-COV-2 COVID-19 MODERNA 12+ YRS VACCINE 2020-12-29 00:00:00 Completed [facility] SARS-COV-2 COVID-19 MODERNA 12+ YRS VACCINE 2020-12-29 00:00:00 Completed [facility] SARS-COV-2 COVID-19 MODERNA 12+ YRS VACCINE 2020-06-01 00:00:00 Completed [facility] SARS-COV-2 COVID-19 MODERNA 12+ YRS VACCINE 2020-06-01 00:00:00 Completed [facility] SARS-COV-2 COVID-19 MODERNA 12+ YRS VACCINE 2020-06-01 00:00:00 Completed [facility] SARS-COV-2 COVID-19 MODERNA 12+ YRS VACCINE 2020-06-01 00:00:00 Completed [facility] SARS-COV-2 COVID-19 MODERNA 12+ YRS VACCINE 2020-06-01 00:00:00 Completed [facility] SARS-COV-2 COVID-19 MODERNA 12+ YRS VACCINE 2020-06-01 00:00:00 Completed [facility] SARS-COV-2 COVID-19 MODERNA 12+ YRS VACCINE 2020-06-01 00:00:00 Completed [facility] SARS-COV-2 COVID-19 MODERNA 12+ YRS VACCINE 2020-06-01 00:00:00 Completed [facility] SARS-COV-2 COVID-19 MODERNA 12+ YRS VACCINE 2020-06-01 00:00:00 Completed [facility] SARS-COV-2 COVID-19 MODERNA 12+ YRS VACCINE 2020-06-01 00:00:00 Completed [facility] SARS-COV-2 COVID-19 MODERNA 12+ YRS VACCINE 2020-06-01 00:00:00 Completed [facility] SARS-COV-2 COVID-19 MODERNA 12+ YRS VACCINE 2020-06-01 00:00:00 Completed [facility] SARS-COV-2 COVID-19 MODERNA 12+ YRS VACCINE 2020-06-01 00:00:00 Completed [facility] SARS-COV-2 COVID-19 MODERNA 12+ YRS VACCINE 2020-06-01 00:00:00 Completed [facility] SARS-COV-2 COVID-19 MODERNA 12+ YRS VACCINE 2020-06-01 00:00:00 Completed [facility] SARS-COV-2 COVID-19 MODERNA 12+ YRS VACCINE 2020-06-01 00:00:00 Completed [facility] SARS-COV-2 COVID-19 MODERNA 12+ YRS VACCINE 2020-06-01 00:00:00 Completed [facility] SARS-COV-2 COVID-19 MODERNA 12+ YRS VACCINE 2020-06-01 00:00:00 Completed [facility] SARS-COV-2 COVID-19 MODERNA 12+ YRS VACCINE 2020-06-01 00:00:00 Completed [facility] SARS-COV-2 COVID-19 MODERNA 12+ YRS VACCINE 2020-06-01 00:00:00 Completed [facility] SARS-COV-2 COVID-19 MODERNA 12+ YRS VACCINE 2020-06-01 00:00:00 Completed [facility] SARS-COV-2 COVID-19 MODERNA 12+ YRS VACCINE 2020-06-01 00:00:00 Completed [facility] SARS-COV-2 COVID-19 MODERNA 12+ YRS VACCINE 2020-06-01 00:00:00 Completed [facility] SARS-COV-2 COVID-19 MODERNA 12+ YRS VACCINE 2020-06-01 00:00:00 Completed [facility] SARS-COV-2 COVID-19 MODERNA 12+ YRS VACCINE 2020-06-01 00:00:00 Completed [facility] SARS-COV-2 COVID-19 MODERNA 12+ YRS VACCINE 2020-06-01 00:00:00 Completed [facility] SARS-COV-2 COVID-19 MODERNA 12+ YRS VACCINE 2020-06-01 00:00:00 Completed [facility] SARS-COV-2 COVID-19 MODERNA 12+ YRS VACCINE 2020-06-01 00:00:00 Completed [facility] SARS-COV-2 COVID-19 MODERNA 12+ YRS VACCINE 2020-06-01 00:00:00 Completed [facility] SARS-COV-2 COVID-19 MODERNA 12+ YRS VACCINE 2020-06-01 00:00:00 Completed [facility] SARS-COV-2 COVID-19 MODERNA 12+ YRS VACCINE 2020-06-01 00:00:00 Completed [facility] SARS-COV-2 COVID-19 MODERNA 12+ YRS VACCINE 2020-06-01 00:00:00 Completed [facility] SARS-COV-2 COVID-19 MODERNA 12+ YRS VACCINE 2020-06-01 00:00:00 Completed [facility] SARS-COV-2 COVID-19 MODERNA 12+ YRS VACCINE 2020-06-01 00:00:00 Completed [facility] SARS-COV-2 COVID-19 MODERNA 12+ YRS VACCINE 2020-06-01 00:00:00 Completed [facility] SARS-COV-2 COVID-19 MODERNA 12+ YRS VACCINE 2020-06-01 00:00:00 Completed [facility] SARS-COV-2 COVID-19 MODERNA 12+ YRS VACCINE 2020-06-01 00:00:00 Completed [facility] SARS-COV-2 COVID-19 MODERNA 12+ YRS VACCINE 2020-06-01 00:00:00 Completed [facility] SARS-COV-2 COVID-19 MODERNA 12+ YRS VACCINE 2020-06-01 00:00:00 Completed [facility] SARS-COV-2 COVID-19 MODERNA 12+ YRS VACCINE 2020-06-01 00:00:00 Completed [facility] SARS-COV-2 COVID-19 MODERNA 12+ YRS VACCINE 2020-06-01 00:00:00 Completed [facility] SARS-COV-2 COVID-19 MODERNA 12+ YRS VACCINE 2020-06-01 00:00:00 Completed [facility] SARS-COV-2 COVID-19 MODERNA 12+ YRS VACCINE 2020-06-01 00:00:00 Completed [facility] SARS-COV-2 COVID-19 MODERNA 12+ YRS VACCINE 2020-06-01 00:00:00 Completed [facility] SARS-COV-2 COVID-19 MODERNA 12+ YRS VACCINE 2020-06-01 00:00:00 Completed [facility] SARS-COV-2 COVID-19 MODERNA 12+ YRS VACCINE 2020-06-01 00:00:00 Completed [facility] SARS-COV-2 COVID-19 MODERNA 12+ YRS VACCINE 2020-06-01 00:00:00 Completed [facility] SARS-COV-2 COVID-19 MODERNA 12+ YRS VACCINE 2020-06-01 00:00:00 Completed [facility] SARS-COV-2 COVID-19 MODERNA 12+ YRS VACCINE 2020-06-01 00:00:00 Completed [facility] SARS-COV-2 COVID-19 MODERNA 12+ YRS VACCINE 2020-06-01 00:00:00 Completed [facility] SARS-COV-2 COVID-19 MODERNA 12+ YRS VACCINE 2020-06-01 00:00:00 Completed [facility] SARS-COV-2 COVID-19 MODERNA 12+ YRS VACCINE 2020-06-01 00:00:00 Completed [facility] SARS-COV-2 COVID-19 MODERNA 12+ YRS VACCINE 2020-06-01 00:00:00 Completed [facility] SARS-COV-2 COVID-19 MODERNA 12+ YRS VACCINE 2020-06-01 00:00:00 Completed [facility] SARS-COV-2 COVID-19 MODERNA 12+ YRS VACCINE 2020-06-01 00:00:00 Completed [facility] SARS-COV-2 COVID-19 MODERNA 12+ YRS VACCINE 2020-06-01 00:00:00 Completed [facility] SARS-COV-2 COVID-19 MODERNA 12+ YRS VACCINE 2020-06-01 00:00:00 Completed [facility] SARS-COV-2 COVID-19 MODERNA 12+ YRS VACCINE 2020-06-01 00:00:00 Completed [facility] SARS-COV-2 COVID-19 MODERNA 12+ YRS VACCINE 2020-06-01 00:00:00 Completed [facility] SARS-COV-2 COVID-19 MODERNA 12+ YRS VACCINE 2020-06-01 00:00:00 Completed [facility] SARS-COV-2 COVID-19 MODERNA 12+ YRS VACCINE 2020-06-01 00:00:00 Completed [facility] SARS-COV-2 COVID-19 MODERNA 12+ YRS VACCINE 2020-06-01 00:00:00 Completed [facility] SARS-COV-2 COVID-19 MODERNA 12+ YRS VACCINE 2020-06-01 00:00:00 Completed [facility] SARS-COV-2 COVID-19 MODERNA 12+ YRS VACCINE 2020-06-01 00:00:00 Completed [facility] SARS-COV-2 COVID-19 MODERNA 12+ YRS VACCINE 2020-06-01 00:00:00 Completed [facility] SARS-COV-2 COVID-19 MODERNA 12+ YRS VACCINE 2020-06-01 00:00:00 Completed [facility] SARS-COV-2 COVID-19 MODERNA 12+ YRS VACCINE 2020-06-01 00:00:00 Completed [facility] SARS-COV-2 COVID-19 MODERNA 12+ YRS VACCINE 2020-06-01 00:00:00 Completed [facility] SARS-COV-2 COVID-19 MODERNA 12+ YRS VACCINE 2020-06-01 00:00:00 Completed [facility] SARS-COV-2 COVID-19 MODERNA 12+ YRS VACCINE 2020-06-01 00:00:00 Completed [facility] SARS-COV-2 COVID-19 MODERNA 12+ YRS VACCINE 2020-06-01 00:00:00 Completed [facility] SARS-COV-2 COVID-19 MODERNA 12+ YRS VACCINE 2020-06-01 00:00:00 Completed [facility] SARS-COV-2 COVID-19 MODERNA 12+ YRS VACCINE 2020-06-01 00:00:00 Completed [facility] SARS-COV-2 COVID-19 MODERNA 12+ YRS VACCINE 2020-06-01 00:00:00 Completed [facility] SARS-COV-2 COVID-19 MODERNA 12+ YRS VACCINE 2020-06-01 00:00:00 Completed [facility] SARS-COV-2 COVID-19 MODERNA 12+ YRS VACCINE 2020-06-01 00:00:00 Completed [facility] SARS-COV-2 COVID-19 MODERNA 12+ YRS VACCINE 2020-06-01 00:00:00 Completed [facility] SARS-COV-2 COVID-19 MODERNA 12+ YRS VACCINE 2020-06-01 00:00:00 Completed [facility] SARS-COV-2 COVID-19 MODERNA 12+ YRS VACCINE 2020-05-04 00:00:00 Completed [facility] SARS-COV-2 COVID-19 MODERNA 12+ YRS VACCINE 2020-05-04 00:00:00 Completed [facility] SARS-COV-2 COVID-19 MODERNA 12+ YRS VACCINE 2020-05-04 00:00:00 Completed [facility] SARS-COV-2 COVID-19 MODERNA 12+ YRS VACCINE 2020-05-04 00:00:00 Completed [facility] SARS-COV-2 COVID-19 MODERNA 12+ YRS VACCINE 2020-05-04 00:00:00 Completed [facility] SARS-COV-2 COVID-19 MODERNA 12+ YRS VACCINE 2020-05-04 00:00:00 Completed [facility] SARS-COV-2 COVID-19 MODERNA 12+ YRS VACCINE 2020-05-04 00:00:00 Completed [facility] SARS-COV-2 COVID-19 MODERNA 12+ YRS VACCINE 2020-05-04 00:00:00 Completed [facility] SARS-COV-2 COVID-19 MODERNA 12+ YRS VACCINE 2020-05-04 00:00:00 Completed [facility] SARS-COV-2 COVID-19 MODERNA 12+ YRS VACCINE 2020-05-04 00:00:00 Completed [facility] SARS-COV-2 COVID-19 MODERNA 12+ YRS VACCINE 2020-05-04 00:00:00 Completed [facility] SARS-COV-2 COVID-19 MODERNA 12+ YRS VACCINE 2020-05-04 00:00:00 Completed [facility] SARS-COV-2 COVID-19 MODERNA 12+ YRS VACCINE 2020-05-04 00:00:00 Completed [facility] SARS-COV-2 COVID-19 MODERNA 12+ YRS VACCINE 2020-05-04 00:00:00 Completed [facility] SARS-COV-2 COVID-19 MODERNA 12+ YRS VACCINE 2020-05-04 00:00:00 Completed [facility] SARS-COV-2 COVID-19 MODERNA 12+ YRS VACCINE 2020-05-04 00:00:00 Completed [facility] SARS-COV-2 COVID-19 MODERNA 12+ YRS VACCINE 2020-05-04 00:00:00 Completed [facility] SARS-COV-2 COVID-19 MODERNA 12+ YRS VACCINE 2020-05-04 00:00:00 Completed [facility] SARS-COV-2 COVID-19 MODERNA 12+ YRS VACCINE 2020-05-04 00:00:00 Completed [facility] SARS-COV-2 COVID-19 MODERNA 12+ YRS VACCINE 2020-05-04 00:00:00 Completed [facility] SARS-COV-2 COVID-19 MODERNA 12+ YRS VACCINE 2020-05-04 00:00:00 Completed [facility] SARS-COV-2 COVID-19 MODERNA 12+ YRS VACCINE 2020-05-04 00:00:00 Completed [facility] SARS-COV-2 COVID-19 MODERNA 12+ YRS VACCINE 2020-05-04 00:00:00 Completed [facility] SARS-COV-2 COVID-19 MODERNA 12+ YRS VACCINE 2020-05-04 00:00:00 Completed [facility] SARS-COV-2 COVID-19 MODERNA 12+ YRS VACCINE 2020-05-04 00:00:00 Completed [facility] SARS-COV-2 COVID-19 MODERNA 12+ YRS VACCINE 2020-05-04 00:00:00 Completed [facility] SARS-COV-2 COVID-19 MODERNA 12+ YRS VACCINE 2020-05-04 00:00:00 Completed [facility] SARS-COV-2 COVID-19 MODERNA 12+ YRS VACCINE 2020-05-04 00:00:00 Completed [facility] SARS-COV-2 COVID-19 MODERNA 12+ YRS VACCINE 2020-05-04 00:00:00 Completed [facility] SARS-COV-2 COVID-19 MODERNA 12+ YRS VACCINE 2020-05-04 00:00:00 Completed [facility] SARS-COV-2 COVID-19 MODERNA 12+ YRS VACCINE 2020-05-04 00:00:00 Completed [facility] SARS-COV-2 COVID-19 MODERNA 12+ YRS VACCINE 2020-05-04 00:00:00 Completed [facility] SARS-COV-2 COVID-19 MODERNA 12+ YRS VACCINE 2020-05-04 00:00:00 Completed [facility] SARS-COV-2 COVID-19 MODERNA 12+ YRS VACCINE 2020-05-04 00:00:00 Completed [facility] SARS-COV-2 COVID-19 MODERNA 12+ YRS VACCINE 2020-05-04 00:00:00 Completed [facility] SARS-COV-2 COVID-19 MODERNA 12+ YRS VACCINE 2020-05-04 00:00:00 Completed [facility] SARS-COV-2 COVID-19 MODERNA 12+ YRS VACCINE 2020-05-04 00:00:00 Completed [facility] SARS-COV-2 COVID-19 MODERNA 12+ YRS VACCINE 2020-05-04 00:00:00 Completed [facility] SARS-COV-2 COVID-19 MODERNA 12+ YRS VACCINE 2020-05-04 00:00:00 Completed [facility] SARS-COV-2 COVID-19 MODERNA 12+ YRS VACCINE 2020-05-04 00:00:00 Completed [facility] SARS-COV-2 COVID-19 MODERNA 12+ YRS VACCINE 2020-05-04 00:00:00 Completed [facility] SARS-COV-2 COVID-19 MODERNA 12+ YRS VACCINE 2020-05-04 00:00:00 Completed [facility] SARS-COV-2 COVID-19 MODERNA 12+ YRS VACCINE 2020-05-04 00:00:00 Completed [facility] SARS-COV-2 COVID-19 MODERNA 12+ YRS VACCINE 2020-05-04 00:00:00 Completed [facility] SARS-COV-2 COVID-19 MODERNA 12+ YRS VACCINE 2020-05-04 00:00:00 Completed [facility] SARS-COV-2 COVID-19 MODERNA 12+ YRS VACCINE 2020-05-04 00:00:00 Completed [facility] SARS-COV-2 COVID-19 MODERNA 12+ YRS VACCINE 2020-05-04 00:00:00 Completed [facility] SARS-COV-2 COVID-19 MODERNA 12+ YRS VACCINE 2020-05-04 00:00:00 Completed [facility] SARS-COV-2 COVID-19 MODERNA 12+ YRS VACCINE 2020-05-04 00:00:00 Completed [facility] SARS-COV-2 COVID-19 MODERNA 12+ YRS VACCINE 2020-05-04 00:00:00 Completed [facility] SARS-COV-2 COVID-19 MODERNA 12+ YRS VACCINE 2020-05-04 00:00:00 Completed [facility] SARS-COV-2 COVID-19 MODERNA 12+ YRS VACCINE 2020-05-04 00:00:00 Completed [facility] SARS-COV-2 COVID-19 MODERNA 12+ YRS VACCINE 2020-05-04 00:00:00 Completed [facility] SARS-COV-2 COVID-19 MODERNA 12+ YRS VACCINE 2020-05-04 00:00:00 Completed [facility] SARS-COV-2 COVID-19 MODERNA 12+ YRS VACCINE 2020-05-04 00:00:00 Completed [facility] SARS-COV-2 COVID-19 MODERNA 12+ YRS VACCINE 2020-05-04 00:00:00 Completed [facility] SARS-COV-2 COVID-19 MODERNA 12+ YRS VACCINE 2020-05-04 00:00:00 Completed [facility] SARS-COV-2 COVID-19 MODERNA 12+ YRS VACCINE 2020-05-04 00:00:00 Completed [facility] SARS-COV-2 COVID-19 MODERNA 12+ YRS VACCINE 2020-05-04 00:00:00 Completed [facility] SARS-COV-2 COVID-19 MODERNA 12+ YRS VACCINE 2020-05-04 00:00:00 Completed [facility] SARS-COV-2 COVID-19 MODERNA 12+ YRS VACCINE 2020-05-04 00:00:00 Completed [facility] SARS-COV-2 COVID-19 MODERNA 12+ YRS VACCINE 2020-05-04 00:00:00 Completed [facility] SARS-COV-2 COVID-19 MODERNA 12+ YRS VACCINE 2020-05-04 00:00:00 Completed [facility] SARS-COV-2 COVID-19 MODERNA 12+ YRS VACCINE 2020-05-04 00:00:00 Completed [facility] SARS-COV-2 COVID-19 MODERNA 12+ YRS VACCINE 2020-05-04 00:00:00 Completed [facility] SARS-COV-2 COVID-19 MODERNA 12+ YRS VACCINE 2020-05-04 00:00:00 Completed [facility] SARS-COV-2 COVID-19 MODERNA 12+ YRS VACCINE 2020-05-04 00:00:00 Completed [facility] SARS-COV-2 COVID-19 MODERNA 12+ YRS VACCINE 2020-05-04 00:00:00 Completed [facility] SARS-COV-2 COVID-19 MODERNA 12+ YRS VACCINE 2020-05-04 00:00:00 Completed [facility] SARS-COV-2 COVID-19 MODERNA 12+ YRS VACCINE 2020-05-04 00:00:00 Completed [facility] SARS-COV-2 COVID-19 MODERNA 12+ YRS VACCINE 2020-05-04 00:00:00 Completed [facility] SARS-COV-2 COVID-19 MODERNA 12+ YRS VACCINE 2020-05-04 00:00:00 Completed [facility] SARS-COV-2 COVID-19 MODERNA 12+ YRS VACCINE 2020-05-04 00:00:00 Completed [facility] SARS-COV-2 COVID-19 MODERNA 12+ YRS VACCINE 2020-05-04 00:00:00 Completed [facility] SARS-COV-2 COVID-19 MODERNA 12+ YRS VACCINE 2020-05-04 00:00:00 Completed [facility] SARS-COV-2 COVID-19 MODERNA 12+ YRS VACCINE 2020-05-04 00:00:00 Completed [facility] SARS-COV-2 COVID-19 MODERNA 12+ YRS VACCINE 2020-05-04 00:00:00 Completed [facility] Influenza Virus Vaccine Quad IM 3+ YRS 2020-02-16 00:00:00 Completed [facility] Influenza Virus Vaccine Quad IM 3+ YRS 2020-02-16 00:00:00 Completed [facility] Influenza Virus Vaccine Quad IM 3+ YRS 2020-02-16 00:00:00 Completed [facility] Influenza Virus Vaccine Quad IM 3+ YRS 2020-02-16 00:00:00 Completed [facility] Influenza Virus Vaccine Quad IM 3+ YRS 2020-02-16 00:00:00 Completed [facility] Influenza Virus Vaccine Quad IM 3+ YRS 2020-02-16 00:00:00 Completed [facility] Influenza Virus Vaccine Quad IM 3+ YRS 2020-02-16 00:00:00 Completed [facility] Influenza Virus Vaccine Quad IM 3+ YRS 2020-02-16 00:00:00 Completed [facility] Influenza Virus Vaccine Quad IM 3+ YRS 2020-02-16 00:00:00 Completed [facility] Influenza Virus Vaccine Quad IM 3+ YRS 2020-02-16 00:00:00 Completed [facility] Influenza Virus Vaccine Quad IM 3+ YRS 2020-02-16 00:00:00 Completed [facility] Influenza Virus Vaccine Quad IM 3+ YRS 2020-02-16 00:00:00 Completed [facility] Influenza Virus Vaccine Quad IM 3+ YRS 2020-02-16 00:00:00 Completed [facility] Influenza Virus Vaccine Quad IM 3+ YRS 2020-02-16 00:00:00 Completed [facility] Influenza Virus Vaccine Quad IM 3+ YRS 2020-02-16 00:00:00 Completed [facility] Influenza Virus Vaccine Quad IM 3+ YRS 2020-02-16 00:00:00 Completed [facility] Influenza Virus Vaccine Quad IM 3+ YRS 2020-02-16 00:00:00 Completed [facility] Influenza Virus Vaccine Quad IM 3+ YRS 2020-02-16 00:00:00 Completed [facility] Influenza Virus Vaccine Quad IM 3+ YRS 2020-02-16 00:00:00 Completed [facility] Influenza Virus Vaccine Quad IM 3+ YRS 2020-02-16 00:00:00 Completed [facility] Influenza Virus Vaccine Quad IM 3+ YRS 2020-02-16 00:00:00 Completed [facility] Influenza Virus Vaccine Quad IM 3+ YRS 2020-02-16 00:00:00 Completed [facility] Influenza Virus Vaccine Quad IM 3+ YRS 2020-02-16 00:00:00 Completed [facility] Influenza Virus Vaccine Quad IM 3+ YRS 2020-02-16 00:00:00 Completed [facility] Influenza Virus Vaccine Quad IM 3+ YRS 2020-02-16 00:00:00 Completed [facility] Influenza Virus Vaccine Quad IM 3+ YRS 2020-02-16 00:00:00 Completed [facility] Influenza Virus Vaccine Quad IM 3+ YRS 2020-02-16 00:00:00 Completed [facility] Influenza Virus Vaccine Quad IM 3+ YRS 2020-02-16 00:00:00 Completed [facility] Influenza Virus Vaccine Quad IM 3+ YRS 2020-02-16 00:00:00 [facility] [facility] Influenza Virus Vaccine Quad IM 3+ YRS 2020-02-16 00:00:00 Completed [facility] Influenza Virus Vaccine Quad IM 3+ YRS 2020-02-16 00:00:00 Completed [facility] Influenza Virus Vaccine Quad IM 3+ YRS 2020-02-16 00:00:00 Completed [facility] Influenza Virus Vaccine Quad IM 3+ YRS 2020-02-16 00:00:00 Completed [facility] Influenza Virus Vaccine Quad IM 3+ YRS 2020-02-16 00:00:00 Completed [facility] Influenza Virus Vaccine Quad IM 3+ YRS 2020-02-16 00:00:00 Completed [facility] Influenza Virus Vaccine Quad IM 3+ YRS 2020-02-16 00:00:00 Completed [facility] Influenza Virus Vaccine Quad IM 3+ YRS 2020-02-16 00:00:00 Completed [facility] Influenza Virus Vaccine Quad IM 3+ YRS 2020-02-16 00:00:00 Completed [facility] Influenza Virus Vaccine Quad IM 3+ YRS 2020-02-16 00:00:00 Completed [facility] Influenza Virus Vaccine Quad IM 3+ YRS 2020-02-16 00:00:00 Completed [facility] Influenza Virus Vaccine Quad IM 3+ YRS 2020-02-16 00:00:00 Completed [facility] Influenza Virus Vaccine Quad IM 3+ YRS 2020-02-16 00:00:00 Completed [facility] Influenza Virus Vaccine Quad IM 3+ YRS 2020-02-16 00:00:00 Completed [facility] Influenza Virus Vaccine Quad IM 3+ YRS 2020-02-16 00:00:00 Completed [facility] Influenza Virus Vaccine Quad IM 3+ YRS 2020-02-16 00:00:00 Completed [facility] Influenza Virus Vaccine Quad IM 3+ YRS 2020-02-16 00:00:00 Completed [facility] Influenza Virus Vaccine Quad IM 3+ YRS 2020-02-16 00:00:00 Completed [facility] Influenza Virus Vaccine Quad IM 3+ YRS 2020-02-16 00:00:00 Completed [facility] Influenza Virus Vaccine Quad IM 3+ YRS 2020-02-16 00:00:00 Completed [facility] Influenza Virus Vaccine Quad IM 3+ YRS 2020-02-16 00:00:00 Completed [facility] Influenza Virus Vaccine Quad IM 3+ YRS 2020-02-16 00:00:00 Completed [facility] Influenza Virus Vaccine Quad IM 3+ YRS 2020-02-16 00:00:00 Completed [facility] Influenza Virus Vaccine Quad IM 3+ YRS 2020-02-16 00:00:00 Completed [facility] Influenza Virus Vaccine Quad IM 3+ YRS 2020-02-16 00:00:00 Completed [facility] Influenza Virus Vaccine Quad IM 3+ YRS 2020-02-16 00:00:00 Completed [facility] Influenza Virus Vaccine Quad IM 3+ YRS 2020-02-16 00:00:00 Completed [facility] Influenza Virus Vaccine Quad IM 3+ YRS 2020-02-16 00:00:00 Completed [facility] Influenza Virus Vaccine Quad IM 3+ YRS 2020-02-16 00:00:00 Completed [facility] Influenza Virus Vaccine Quad IM 3+ YRS 2020-02-16 00:00:00 Completed [facility] Influenza Virus Vaccine Quad IM 3+ YRS 2020-02-16 00:00:00 Completed [facility] Influenza Virus Vaccine Quad IM 3+ YRS 2020-02-16 00:00:00 Completed [facility] Influenza Virus Vaccine Quad IM 3+ YRS 2020-02-16 00:00:00 Completed [facility] Influenza Virus Vaccine Quad IM 3+ YRS 2020-02-16 00:00:00 Completed [facility] Influenza Virus Vaccine Quad IM 3+ YRS 2020-02-16 00:00:00 Completed [facility] Influenza Virus Vaccine Quad IM 3+ YRS 2020-02-16 00:00:00 Completed [facility] Influenza Virus Vaccine Quad IM 3+ YRS 2020-02-16 00:00:00 Completed [facility] Influenza Virus Vaccine Quad IM 3+ YRS 2020-02-16 00:00:00 Completed [facility] Influenza Virus Vaccine Quad IM 3+ YRS 2020-02-16 00:00:00 Completed [facility] Influenza Virus Vaccine Quad IM 3+ YRS 2020-02-16 00:00:00 Completed [facility] Influenza Virus Vaccine Quad IM 3+ YRS 2020-02-16 00:00:00 Completed [facility] Influenza Virus Vaccine Quad IM 3+ YRS 2020-02-16 00:00:00 Completed [facility] Influenza Virus Vaccine Quad IM 3+ YRS 2020-02-16 00:00:00 Completed [facility] Influenza Virus Vaccine Quad IM 3+ YRS 2020-02-16 00:00:00 Completed [facility] Influenza Virus Vaccine Quad IM 3+ YRS 2020-02-16 00:00:00 Completed [facility] Influenza Virus Vaccine Quad IM 3+ YRS 2020-02-16 00:00:00 Completed [facility] Influenza Virus Vaccine Quad IM 3+ YRS 2020-02-16 00:00:00 Completed [facility] Influenza Virus Vaccine Quad IM 3+ YRS 2020-02-16 00:00:00 Completed [facility] Influenza Virus Vaccine 2019-02-11 00:00:00 Completed [facility] Influenza Virus Vaccine 2019-02-11 00:00:00 Completed [facility] Influenza Virus Vaccine 2019-02-11 00:00:00 Completed [facility] Influenza Virus Vaccine 2019-02-11 00:00:00 Completed [facility] Influenza Virus Vaccine 2019-02-11 00:00:00 Completed [facility] Influenza Virus Vaccine 2019-02-11 00:00:00 Completed [facility] Influenza Virus Vaccine 2019-02-11 00:00:00 Completed [facility] Influenza Virus Vaccine 2019-02-11 00:00:00 Completed [facility] Influenza Virus Vaccine 2019-02-11 00:00:00 Completed [facility] Influenza Virus Vaccine 2019-02-11 00:00:00 Completed [facility] Influenza Virus Vaccine 2019-02-11 00:00:00 Completed [facility] Influenza Virus Vaccine 2019-02-11 00:00:00 Completed [facility] Influenza Virus Vaccine 2019-02-11 00:00:00 Completed [facility] Influenza Virus Vaccine 2019-02-11 00:00:00 Completed [facility] Influenza Virus Vaccine 2019-02-11 00:00:00 Completed [facility] Influenza Virus Vaccine 2019-02-11 00:00:00 Completed [facility] Influenza Virus Vaccine 2019-02-11 00:00:00 Completed [facility] Influenza Virus Vaccine 2019-02-11 00:00:00 Completed [facility] Influenza Virus Vaccine 2019-02-11 00:00:00 Completed [facility] Influenza Virus Vaccine 2019-02-11 00:00:00 Completed [facility] Influenza Virus Vaccine 2019-02-11 00:00:00 Completed [facility] Influenza Virus Vaccine 2019-02-11 00:00:00 Completed [facility] Influenza Virus Vaccine 2019-02-11 00:00:00 Completed [facility] Influenza Virus Vaccine 2019-02-11 00:00:00 Completed [facility] Influenza Virus Vaccine 2019-02-11 00:00:00 Completed [facility] Influenza Virus Vaccine 2019-02-11 00:00:00 Completed [facility] Influenza Virus Vaccine 2019-02-11 00:00:00 Completed [facility] Influenza Virus Vaccine 2019-02-11 00:00:00 Completed [facility] Influenza Virus Vaccine 2019-02-11 00:00:00 Completed [facility] Influenza Virus Vaccine 2019-02-11 00:00:00 Completed [facility] Influenza Virus Vaccine 2019-02-11 00:00:00 Completed [facility] Influenza Virus Vaccine 2019-02-11 00:00:00 Completed [facility] Influenza Virus Vaccine 2019-02-11 00:00:00 Completed [facility] Influenza Virus Vaccine 2019-02-11 00:00:00 Completed [facility] Influenza Virus Vaccine 2019-02-11 00:00:00 Completed [facility] Influenza Virus Vaccine 2019-02-11 00:00:00 Completed [facility] Influenza Virus Vaccine 2019-02-11 00:00:00 Completed [facility] Influenza Virus Vaccine 2019-02-11 00:00:00 Completed [facility] Influenza Virus Vaccine 2019-02-11 00:00:00 Completed [facility] Influenza Virus Vaccine 2019-02-11 00:00:00 Completed [facility] Influenza Virus Vaccine 2019-02-11 00:00:00 Completed [facility] Influenza Virus Vaccine 2019-02-11 00:00:00 Completed [facility] Influenza Virus Vaccine 2019-02-11 00:00:00 Completed [facility] Influenza Virus Vaccine 2019-02-11 00:00:00 Completed [facility] Influenza Virus Vaccine 2019-02-11 00:00:00 Completed [facility] Influenza Virus Vaccine 2019-02-11 00:00:00 Completed [facility] Influenza Virus Vaccine 2019-02-11 00:00:00 Completed [facility] Influenza Virus Vaccine 2019-02-11 00:00:00 Completed [facility] Influenza Virus Vaccine 2019-02-11 00:00:00 Completed [facility] Influenza Virus Vaccine 2019-02-11 00:00:00 Completed [facility] Influenza Virus Vaccine 2019-02-11 00:00:00 Completed [facility] Influenza Virus Vaccine 2019-02-11 00:00:00 Completed [facility] Influenza Virus Vaccine 2019-02-11 00:00:00 Completed [facility] Influenza Virus Vaccine 2019-02-11 00:00:00 Completed [facility] Influenza Virus Vaccine 2019-02-11 00:00:00 Completed [facility] Influenza Virus Vaccine 2019-02-11 00:00:00 Completed [facility] Influenza Virus Vaccine 2019-02-11 00:00:00 Completed [facility] Influenza Virus Vaccine 2019-02-11 00:00:00 Completed [facility] Influenza Virus Vaccine 2019-02-11 00:00:00 Completed [facility] Influenza Virus Vaccine 2019-02-11 00:00:00 Completed [facility] Influenza Virus Vaccine 2019-02-11 00:00:00 Completed [facility] Influenza Virus Vaccine 2019-02-11 00:00:00 Completed [facility] Influenza Virus Vaccine 2019-02-11 00:00:00 Completed [facility] Influenza Virus Vaccine 2019-02-11 00:00:00 Completed [facility] Influenza Virus Vaccine 2019-02-11 00:00:00 Completed [facility] Influenza Virus Vaccine 2019-02-11 00:00:00 Completed [facility] Influenza Virus Vaccine 2019-02-11 00:00:00 Completed [facility] Influenza Virus Vaccine 2019-02-11 00:00:00 Completed [facility] Influenza Virus Vaccine 2019-02-11 00:00:00 Completed [facility] Influenza Virus Vaccine 2019-02-11 00:00:00 Completed [facility] Influenza Virus Vaccine 2019-02-11 00:00:00 Completed [facility] Influenza Virus Vaccine 2019-02-11 00:00:00 Completed [facility] Influenza Virus Vaccine 2019-02-11 00:00:00 Completed [facility] Influenza Virus Vaccine 2019-02-11 00:00:00 Completed [facility] Influenza Virus Vaccine 2019-02-11 00:00:00 Completed [facility] Influenza Virus Vaccine 2019-02-11 00:00:00 Completed [facility] Influenza Virus Vaccine 2019-02-11 00:00:00 Completed [facility] Influenza Virus Vaccine 2019-02-11 00:00:00 Completed Influenza Virus Vaccine 2017-12-25 00:00:00 Completed [facility] Influenza Virus Vaccine 2017-12-25 00:00:00 Completed [facility] Influenza Virus Vaccine 2017-12-25 00:00:00 Completed [facility] Influenza Virus Vaccine 2017-12-25 00:00:00 Completed [facility] Influenza Virus Vaccine 2017-12-25 00:00:00 Completed [facility] Influenza Virus Vaccine 2017-12-25 00:00:00 Completed [facility] Influenza Virus Vaccine 2017-12-25 00:00:00 Completed [facility] Influenza Virus Vaccine 2017-12-25 00:00:00 Completed [facility] Influenza Virus Vaccine 2017-12-25 00:00:00 Completed [facility] Influenza Virus Vaccine 2017-12-25 00:00:00 Completed [facility] Influenza Virus Vaccine 2017-12-25 00:00:00 Completed [facility] Influenza Virus Vaccine 2017-12-25 00:00:00 Completed [facility] Influenza Virus Vaccine 2017-12-25 00:00:00 Completed [facility] Influenza Virus Vaccine 2017-12-25 00:00:00 Completed [facility] Influenza Virus Vaccine 2017-12-25 00:00:00 Completed [facility] Influenza Virus Vaccine 2017-12-25 00:00:00 Completed [facility] Influenza Virus Vaccine 2017-12-25 00:00:00 Completed [facility] Influenza Virus Vaccine 2017-12-25 00:00:00 Completed [facility] Influenza Virus Vaccine 2017-12-25 00:00:00 Completed [facility] Influenza Virus Vaccine 2017-12-25 00:00:00 Completed [facility] Influenza Virus Vaccine 2017-12-25 00:00:00 Completed [facility] Influenza Virus Vaccine 2017-12-25 00:00:00 Completed [facility] Influenza Virus Vaccine 2017-12-25 00:00:00 Completed [facility] Influenza Virus Vaccine 2017-12-25 00:00:00 Completed [facility] Influenza Virus Vaccine 2017-12-25 00:00:00 Completed [facility] Influenza Virus Vaccine 2017-12-25 00:00:00 Completed [facility] Influenza Virus Vaccine 2017-12-25 00:00:00 Completed [facility] Influenza Virus Vaccine 2017-12-25 00:00:00 Completed [facility] Influenza Virus Vaccine 2017-12-25 00:00:00 Completed [facility] Influenza Virus Vaccine 2017-12-25 00:00:00 Completed [facility] Influenza Virus Vaccine 2017-12-25 00:00:00 Completed [facility] Influenza Virus Vaccine 2017-12-25 00:00:00 Completed [facility] Influenza Virus Vaccine 2017-12-25 00:00:00 Completed [facility] Influenza Virus Vaccine 2017-12-25 00:00:00 Completed [facility] Influenza Virus Vaccine 2017-12-25 00:00:00 Completed [facility] Influenza Virus Vaccine 2017-12-25 00:00:00 Completed [facility] Influenza Virus Vaccine 2017-12-25 00:00:00 Completed [facility] Influenza Virus Vaccine 2017-12-25 00:00:00 Completed [facility] Influenza Virus Vaccine 2017-12-25 00:00:00 Completed [facility] Influenza Virus Vaccine 2017-12-25 00:00:00 Completed [facility] Influenza Virus Vaccine 2017-12-25 00:00:00 Completed [facility] Influenza Virus Vaccine 2017-12-25 00:00:00 Completed [facility] Influenza Virus Vaccine 2017-12-25 00:00:00 Completed [facility] Influenza Virus Vaccine 2017-12-25 00:00:00 Completed [facility] Influenza Virus Vaccine 2017-12-25 00:00:00 Completed [facility] Influenza Virus Vaccine 2017-12-25 00:00:00 Completed [facility] Influenza Virus Vaccine 2017-12-25 00:00:00 Completed [facility] Influenza Virus Vaccine 2017-12-25 00:00:00 Completed [facility] Influenza Virus Vaccine 2017-12-25 00:00:00 Completed [facility] Influenza Virus Vaccine 2017-12-25 00:00:00 Completed [facility] Influenza Virus Vaccine 2017-12-25 00:00:00 Completed [facility] Influenza Virus Vaccine 2017-12-25 00:00:00 Completed [facility] Influenza Virus Vaccine 2017-12-25 00:00:00 Completed [facility] Influenza Virus Vaccine 2017-12-25 00:00:00 Completed [facility] Influenza Virus Vaccine 2017-12-25 00:00:00 Completed [facility] Influenza Virus Vaccine 2017-12-25 00:00:00 Completed [facility] Influenza Virus Vaccine 2017-12-25 00:00:00 Completed [facility] Influenza Virus Vaccine 2017-12-25 00:00:00 Completed [facility] Influenza Virus Vaccine 2017-12-25 00:00:00 Completed [facility] Influenza Virus Vaccine 2017-12-25 00:00:00 Completed [facility] Influenza Virus Vaccine 2017-12-25 00:00:00 Completed [facility] Influenza Virus Vaccine 2017-12-25 00:00:00 Completed [facility] Influenza Virus Vaccine 2017-12-25 00:00:00 Completed [facility] Influenza Virus Vaccine 2017-12-25 00:00:00 Completed [facility] Influenza Virus Vaccine 2017-12-25 00:00:00 Completed [facility] Influenza Virus Vaccine 2017-12-25 00:00:00 Completed [facility] Influenza Virus Vaccine 2017-12-25 00:00:00 Completed [facility] Influenza Virus Vaccine 2017-12-25 00:00:00 Completed [facility] Influenza Virus Vaccine 2017-12-25 00:00:00 Completed [facility] Influenza Virus Vaccine 2017-12-25 00:00:00 Completed [facility] Influenza Virus Vaccine 2017-12-25 00:00:00 Completed [facility] Influenza Virus Vaccine 2017-12-25 00:00:00 Completed [facility] Influenza Virus Vaccine 2017-12-25 00:00:00 Completed [facility] Influenza Virus Vaccine 2017-12-25 00:00:00 Completed [facility] Influenza Virus Vaccine 2017-12-25 00:00:00 Completed [facility] Influenza Virus Vaccine 2017-12-25 00:00:00 Completed [facility] Influenza Virus Vaccine 2017-12-25 00:00:00 Completed [facility] Influenza Virus Vaccine 2017-12-25 00:00:00 Completed Influenza Virus Vaccine (3+ yrs) 2014-01-17 00:00:00 Completed [facility] Influenza Virus Vaccine (3+ yrs) 2014-01-17 00:00:00 Completed [facility] Influenza Virus Vaccine (3+ yrs) 2014-01-17 00:00:00 Completed [facility] Influenza Virus Vaccine (3+ yrs) 2014-01-17 00:00:00 Completed [facility] Influenza Virus Vaccine (3+ yrs) 2014-01-17 00:00:00 Completed [facility] Influenza Virus Vaccine (3+ yrs) 2014-01-17 00:00:00 Completed [facility] Influenza Virus Vaccine (3+ yrs) 2014-01-17 00:00:00 Completed [facility] Influenza Virus Vaccine (3+ yrs) 2014-01-17 00:00:00 Completed [facility] Influenza Virus Vaccine (3+ yrs) 2014-01-17 00:00:00 Completed [facility] Influenza Virus Vaccine (3+ yrs) 2014-01-17 00:00:00 Completed [facility] Influenza Virus Vaccine (3+ yrs) 2014-01-17 00:00:00 Completed [facility] Influenza Virus Vaccine (3+ yrs) 2014-01-17 00:00:00 Completed [facility] Influenza Virus Vaccine (3+ yrs) 2014-01-17 00:00:00 Completed [facility] Influenza Virus Vaccine (3+ yrs) 2014-01-17 00:00:00 Completed [facility] Influenza Virus Vaccine (3+ yrs) 2014-01-17 00:00:00 Completed [facility] Influenza Virus Vaccine (3+ yrs) 2014-01-17 00:00:00 Completed [facility] Influenza Virus Vaccine (3+ yrs) 2014-01-17 00:00:00 Completed [facility] Influenza Virus Vaccine (3+ yrs) 2014-01-17 00:00:00 Completed [facility] Influenza Virus Vaccine (3+ yrs) 2014-01-17 00:00:00 Completed [facility] Influenza Virus Vaccine (3+ yrs) 2014-01-17 00:00:00 Completed [facility] Influenza Virus Vaccine (3+ yrs) 2014-01-17 00:00:00 Completed [facility] Influenza Virus Vaccine (3+ yrs) 2014-01-17 00:00:00 Completed [facility] Influenza Virus Vaccine (3+ yrs) 2014-01-17 00:00:00 Completed [facility] Influenza Virus Vaccine (3+ yrs) 2014-01-17 00:00:00 Completed [facility] Influenza Virus Vaccine (3+ yrs) 2014-01-17 00:00:00 Completed [facility] Influenza Virus Vaccine (3+ yrs) 2014-01-17 00:00:00 Completed [facility] Influenza Virus Vaccine (3+ yrs) 2014-01-17 00:00:00 Completed [facility] Influenza Virus Vaccine (3+ yrs) 2014-01-17 00:00:00 Completed [facility] Influenza Virus Vaccine (3+ yrs) 2014-01-17 00:00:00 Completed [facility] Influenza Virus Vaccine (3+ yrs) 2014-01-17 00:00:00 Completed [facility] Influenza Virus Vaccine (3+ yrs) 2014-01-17 00:00:00 Completed [facility] Influenza Virus Vaccine (3+ yrs) 2014-01-17 00:00:00 Completed [facility] Influenza Virus Vaccine (3+ yrs) 2014-01-17 00:00:00 Completed [facility] Influenza Virus Vaccine (3+ yrs) 2014-01-17 00:00:00 Completed [facility] Influenza Virus Vaccine (3+ yrs) 2014-01-17 00:00:00 Completed [facility] Influenza Virus Vaccine (3+ yrs) 2014-01-17 00:00:00 Completed [facility] Influenza Virus Vaccine (3+ yrs) 2014-01-17 00:00:00 Completed [facility] Influenza Virus Vaccine (3+ yrs) 2014-01-17 00:00:00 Completed [facility] Influenza Virus Vaccine (3+ yrs) 2014-01-17 00:00:00 Completed [facility] Influenza Virus Vaccine (3+ yrs) 2014-01-17 00:00:00 Completed [facility] Influenza Virus Vaccine (3+ yrs) 2014-01-17 00:00:00 Completed [facility] Influenza Virus Vaccine (3+ yrs) 2014-01-17 00:00:00 Completed [facility] Influenza Virus Vaccine (3+ yrs) 2014-01-17 00:00:00 Completed [facility] Influenza Virus Vaccine (3+ yrs) 2014-01-17 00:00:00 Completed [facility] Influenza Virus Vaccine (3+ yrs) 2014-01-17 00:00:00 Completed [facility] Influenza Virus Vaccine (3+ yrs) 2014-01-17 00:00:00 Completed [facility] Influenza Virus Vaccine (3+ yrs) 2014-01-17 00:00:00 Completed [facility] Influenza Virus Vaccine (3+ yrs) 2014-01-17 00:00:00 Completed [facility] Influenza Virus Vaccine (3+ yrs) 2014-01-17 00:00:00 Completed [facility] Influenza Virus Vaccine (3+ yrs) 2014-01-17 00:00:00 Completed [facility] Influenza Virus Vaccine (3+ yrs) 2014-01-17 00:00:00 Completed [facility] Influenza Virus Vaccine (3+ yrs) 2014-01-17 00:00:00 Completed [facility] Influenza Virus Vaccine (3+ yrs) 2014-01-17 00:00:00 Completed [facility] Influenza Virus Vaccine (3+ yrs) 2014-01-17 00:00:00 Completed [facility] Influenza Virus Vaccine (3+ yrs) 2014-01-17 00:00:00 Completed [facility] Influenza Virus Vaccine (3+ yrs) 2014-01-17 00:00:00 Completed [facility] Influenza Virus Vaccine (3+ yrs) 2014-01-17 00:00:00 Completed [facility] Influenza Virus Vaccine (3+ yrs) 2014-01-17 00:00:00 Completed [facility] Influenza Virus Vaccine (3+ yrs) 2014-01-17 00:00:00 Completed [facility] Influenza Virus Vaccine (3+ yrs) 2014-01-17 00:00:00 Completed [facility] Influenza Virus Vaccine (3+ yrs) 2014-01-17 00:00:00 Completed [facility] Influenza Virus Vaccine (3+ yrs) 2014-01-17 00:00:00 Completed [facility] Influenza Virus Vaccine (3+ yrs) 2014-01-17 00:00:00 Completed [facility] Influenza Virus Vaccine (3+ yrs) 2014-01-17 00:00:00 Completed [facility] Influenza Virus Vaccine (3+ yrs) 2014-01-17 00:00:00 Completed [facility] Influenza Virus Vaccine (3+ yrs) 2014-01-17 00:00:00 Completed [facility] Influenza Virus Vaccine (3+ yrs) 2014-01-17 00:00:00 Completed [facility] Influenza Virus Vaccine (3+ yrs) 2014-01-17 00:00:00 Completed [facility] Influenza Virus Vaccine (3+ yrs) 2014-01-17 00:00:00 Completed [facility] Influenza Virus Vaccine (3+ yrs) 2014-01-17 00:00:00 Completed [facility] Influenza Virus Vaccine (3+ yrs) 2014-01-17 00:00:00 Completed [facility] Influenza Virus Vaccine (3+ yrs) 2014-01-17 00:00:00 Completed [facility] Influenza Virus Vaccine (3+ yrs) 2014-01-17 00:00:00 Completed [facility] Influenza Virus Vaccine (3+ yrs) 2014-01-17 00:00:00 Completed [facility] Influenza Virus Vaccine (3+ yrs) 2014-01-17 00:00:00 Completed [facility] Influenza Virus Vaccine (3+ yrs) 2014-01-17 00:00:00 Completed [facility] Influenza Virus Vaccine (3+ yrs) 2014-01-17 00:00:00 Completed [facility] Influenza Virus Vaccine (3+ yrs) 2013-03-15 00:00:00 Completed [facility] Influenza Virus Vaccine (3+ yrs) 2013-03-15 00:00:00 Completed [facility] Influenza Virus Vaccine (3+ yrs) 2013-03-15 00:00:00 Completed [facility] Influenza Virus Vaccine (3+ yrs) 2013-03-15 00:00:00 Completed [facility] Influenza Virus Vaccine (3+ yrs) 2013-03-15 00:00:00 Completed [facility] Influenza Virus Vaccine (3+ yrs) 2013-03-15 00:00:00 Completed [facility] Influenza Virus Vaccine (3+ yrs) 2013-03-15 00:00:00 Completed [facility] Influenza Virus Vaccine (3+ yrs) 2013-03-15 00:00:00 Completed [facility] Influenza Virus Vaccine (3+ yrs) 2013-03-15 00:00:00 Completed [facility] Influenza Virus Vaccine (3+ yrs) 2013-03-15 00:00:00 Completed [facility] Influenza Virus Vaccine (3+ yrs) 2013-03-15 00:00:00 Completed [facility] Influenza Virus Vaccine (3+ yrs) 2013-03-15 00:00:00 Completed [facility] Influenza Virus Vaccine (3+ yrs) 2013-03-15 00:00:00 Completed [facility] Influenza Virus Vaccine (3+ yrs) 2013-03-15 00:00:00 Completed [facility] Influenza Virus Vaccine (3+ yrs) 2013-03-15 00:00:00 Completed [facility] Influenza Virus Vaccine (3+ yrs) 2013-03-15 00:00:00 Completed [facility] Influenza Virus Vaccine (3+ yrs) 2013-03-15 00:00:00 Completed [facility] Influenza Virus Vaccine (3+ yrs) 2013-03-15 00:00:00 Completed [facility] Influenza Virus Vaccine (3+ yrs) 2013-03-15 00:00:00 Completed [facility] Influenza Virus Vaccine (3+ yrs) 2013-03-15 00:00:00 Completed [facility] Influenza Virus Vaccine (3+ yrs) 2013-03-15 00:00:00 Completed [facility] Influenza Virus Vaccine (3+ yrs) 2013-03-15 00:00:00 Completed [facility] Influenza Virus Vaccine (3+ yrs) 2013-03-15 00:00:00 Completed [facility] Influenza Virus Vaccine (3+ yrs) 2013-03-15 00:00:00 Completed [facility] Influenza Virus Vaccine (3+ yrs) 2013-03-15 00:00:00 Completed [facility] Influenza Virus Vaccine (3+ yrs) 2013-03-15 00:00:00 Completed [facility] Influenza Virus Vaccine (3+ yrs) 2013-03-15 00:00:00 Completed [facility] Influenza Virus Vaccine (3+ yrs) 2013-03-15 00:00:00 Completed [facility] Influenza Virus Vaccine (3+ yrs) 2013-03-15 00:00:00 Completed [facility] Influenza Virus Vaccine (3+ yrs) 2013-03-15 00:00:00 Completed [facility] Influenza Virus Vaccine (3+ yrs) 2013-03-15 00:00:00 Completed [facility] Influenza Virus Vaccine (3+ yrs) 2013-03-15 00:00:00 Completed [facility] Influenza Virus Vaccine (3+ yrs) 2013-03-15 00:00:00 Completed [facility] Influenza Virus Vaccine (3+ yrs) 2013-03-15 00:00:00 Completed [facility] Influenza Virus Vaccine (3+ yrs) 2013-03-15 00:00:00 Completed [facility] Influenza Virus Vaccine (3+ yrs) 2013-03-15 00:00:00 Completed [facility] Influenza Virus Vaccine (3+ yrs) 2013-03-15 00:00:00 Completed [facility] Influenza Virus Vaccine (3+ yrs) 2013-03-15 00:00:00 Completed [facility] Influenza Virus Vaccine (3+ yrs) 2013-03-15 00:00:00 Completed [facility] Influenza Virus Vaccine (3+ yrs) 2013-03-15 00:00:00 Completed [facility] Influenza Virus Vaccine (3+ yrs) 2013-03-15 00:00:00 Completed [facility] Influenza Virus Vaccine (3+ yrs) 2013-03-15 00:00:00 Completed [facility] Influenza Virus Vaccine (3+ yrs) 2013-03-15 00:00:00 Completed [facility] Influenza Virus Vaccine (3+ yrs) 2013-03-15 00:00:00 Completed [facility] Influenza Virus Vaccine (3+ yrs) 2013-03-15 00:00:00 Completed [facility] Influenza Virus Vaccine (3+ yrs) 2013-03-15 00:00:00 Completed [facility] Influenza Virus Vaccine (3+ yrs) 2013-03-15 00:00:00 Completed [facility] Influenza Virus Vaccine (3+ yrs) 2013-03-15 00:00:00 Completed [facility] Influenza Virus Vaccine (3+ yrs) 2013-03-15 00:00:00 Completed [facility] Influenza Virus Vaccine (3+ yrs) 2013-03-15 00:00:00 Completed [facility] Influenza Virus Vaccine (3+ yrs) 2013-03-15 00:00:00 Completed [facility] Influenza Virus Vaccine (3+ yrs) 2013-03-15 00:00:00 Completed [facility] Influenza Virus Vaccine (3+ yrs) 2013-03-15 00:00:00 Completed [facility] Influenza Virus Vaccine (3+ yrs) 2013-03-15 00:00:00 Completed [facility] Influenza Virus Vaccine (3+ yrs) 2013-03-15 00:00:00 Completed [facility] Influenza Virus Vaccine (3+ yrs) 2013-03-15 00:00:00 Completed [facility] Influenza Virus Vaccine (3+ yrs) 2013-03-15 00:00:00 Completed [facility] Influenza Virus Vaccine (3+ yrs) 2013-03-15 00:00:00 Completed [facility] Influenza Virus Vaccine (3+ yrs) 2013-03-15 00:00:00 Completed [facility] Influenza Virus Vaccine (3+ yrs) 2013-03-15 00:00:00 Completed [facility] Influenza Virus Vaccine (3+ yrs) 2013-03-15 00:00:00 Completed [facility] Influenza Virus Vaccine (3+ yrs) 2013-03-15 00:00:00 Completed [facility] Influenza Virus Vaccine (3+ yrs) 2013-03-15 00:00:00 Completed [facility] Influenza Virus Vaccine (3+ yrs) 2013-03-15 00:00:00 Completed [facility] Influenza Virus Vaccine (3+ yrs) 2013-03-15 00:00:00 Completed [facility] Influenza Virus Vaccine (3+ yrs) 2013-03-15 00:00:00 Completed [facility] Influenza Virus Vaccine (3+ yrs) 2013-03-15 00:00:00 Completed [facility] Influenza Virus Vaccine (3+ yrs) 2013-03-15 00:00:00 Completed [facility] Influenza Virus Vaccine (3+ yrs) 2013-03-15 00:00:00 Completed [facility] Influenza Virus Vaccine (3+ yrs) 2013-03-15 00:00:00 Completed [facility] Influenza Virus Vaccine (3+ yrs) 2013-03-15 00:00:00 Completed [facility] Influenza Virus Vaccine (3+ yrs) 2013-03-15 00:00:00 Completed [facility] Influenza Virus Vaccine (3+ yrs) 2013-03-15 00:00:00 Completed [facility] Influenza Virus Vaccine (3+ yrs) 2013-03-15 00:00:00 Completed [facility] Influenza Virus Vaccine (3+ yrs) 2013-03-15 00:00:00 Completed [facility] Influenza Virus Vaccine (3+ yrs) 2013-03-15 00:00:00 Completed [facility] Influenza Virus Vaccine (3+ yrs) 2013-03-15 00:00:00 Completed [facility] Influenza Virus Vaccine 2012-03-02 00:00:00 Completed [facility] Influenza Virus Vaccine 2012-03-02 00:00:00 Completed [facility] Influenza Virus Vaccine 2012-03-02 00:00:00 Completed [facility] Influenza Virus Vaccine 2012-03-02 00:00:00 Completed [facility] Influenza Virus Vaccine 2012-03-02 00:00:00 Completed [facility] Influenza Virus Vaccine 2012-03-02 00:00:00 Completed [facility] Influenza Virus Vaccine 2012-03-02 00:00:00 Completed [facility] Influenza Virus Vaccine 2012-03-02 00:00:00 Completed [facility] Influenza Virus Vaccine 2012-03-02 00:00:00 Completed [facility] Influenza Virus Vaccine 2012-03-02 00:00:00 Completed [facility] Influenza Virus Vaccine 2012-03-02 00:00:00 Completed [facility] Influenza Virus Vaccine 2012-03-02 00:00:00 Completed [facility] Influenza Virus Vaccine 2012-03-02 00:00:00 Completed [facility] Influenza Virus Vaccine 2012-03-02 00:00:00 Completed [facility] Influenza Virus Vaccine 2012-03-02 00:00:00 Completed [facility] Influenza Virus Vaccine 2012-03-02 00:00:00 Completed [facility] Influenza Virus Vaccine 2012-03-02 00:00:00 Completed [facility] Influenza Virus Vaccine 2012-03-02 00:00:00 Completed [facility] Influenza Virus Vaccine 2012-03-02 00:00:00 Completed [facility] Influenza Virus Vaccine 2012-03-02 00:00:00 Completed [facility] Influenza Virus Vaccine 2012-03-02 00:00:00 Completed [facility] Influenza Virus Vaccine 2012-03-02 00:00:00 Completed [facility] Influenza Virus Vaccine 2012-03-02 00:00:00 Completed [facility] Influenza Virus Vaccine 2012-03-02 00:00:00 Completed [facility] Influenza Virus Vaccine 2012-03-02 00:00:00 Completed [facility] Influenza Virus Vaccine 2012-03-02 00:00:00 Completed [facility] Influenza Virus Vaccine 2012-03-02 00:00:00 Completed [facility] Influenza Virus Vaccine 2012-03-02 00:00:00 Completed [facility] Influenza Virus Vaccine 2012-03-02 00:00:00 Completed [facility] Influenza Virus Vaccine 2012-03-02 00:00:00 Completed [facility] Influenza Virus Vaccine 2012-03-02 00:00:00 Completed [facility] Influenza Virus Vaccine 2012-03-02 00:00:00 Completed [facility] Influenza Virus Vaccine 2012-03-02 00:00:00 Completed [facility] Influenza Virus Vaccine 2012-03-02 00:00:00 Completed [facility] Influenza Virus Vaccine 2012-03-02 00:00:00 Completed [facility] Influenza Virus Vaccine 2012-03-02 00:00:00 Completed [facility] Influenza Virus Vaccine 2012-03-02 00:00:00 Completed [facility] Influenza Virus Vaccine 2012-03-02 00:00:00 Completed [facility] Influenza Virus Vaccine 2012-03-02 00:00:00 Completed [facility] Influenza Virus Vaccine 2012-03-02 00:00:00 Completed [facility] Influenza Virus Vaccine 2012-03-02 00:00:00 Completed [facility] Influenza Virus Vaccine 2012-03-02 00:00:00 Completed [facility] Influenza Virus Vaccine 2012-03-02 00:00:00 Completed [facility] Influenza Virus Vaccine 2012-03-02 00:00:00 Completed [facility] Influenza Virus Vaccine 2012-03-02 00:00:00 Completed [facility] Influenza Virus Vaccine 2012-03-02 00:00:00 Completed [facility] Influenza Virus Vaccine 2012-03-02 00:00:00 Completed [facility] Influenza Virus Vaccine 2012-03-02 00:00:00 Completed [facility] Influenza Virus Vaccine 2012-03-02 00:00:00 Completed [facility] Influenza Virus Vaccine 2012-03-02 00:00:00 Completed [facility] Influenza Virus Vaccine 2012-03-02 00:00:00 Completed [facility] Influenza Virus Vaccine 2012-03-02 00:00:00 Completed [facility] Influenza Virus Vaccine 2012-03-02 00:00:00 Completed [facility] Influenza Virus Vaccine 2012-03-02 00:00:00 Completed [facility] Influenza Virus Vaccine 2012-03-02 00:00:00 Completed [facility] Influenza Virus Vaccine 2012-03-02 00:00:00 Completed [facility] Influenza Virus Vaccine 2012-03-02 00:00:00 Completed [facility] Influenza Virus Vaccine 2012-03-02 00:00:00 Completed [facility] Influenza Virus Vaccine 2012-03-02 00:00:00 Completed [facility] Influenza Virus Vaccine 2012-03-02 00:00:00 Completed [facility] Influenza Virus Vaccine 2012-03-02 00:00:00 Completed [facility] Influenza Virus Vaccine 2012-03-02 00:00:00 Completed [facility] Influenza Virus Vaccine 2012-03-02 00:00:00 Completed [facility] Influenza Virus Vaccine 2012-03-02 00:00:00 Completed [facility] Influenza Virus Vaccine 2012-03-02 00:00:00 Completed [facility] Influenza Virus Vaccine 2012-03-02 00:00:00 Completed [facility] Influenza Virus Vaccine 2012-03-02 00:00:00 Completed [facility] Influenza Virus Vaccine 2012-03-02 00:00:00 Completed [facility] Influenza Virus Vaccine 2012-03-02 00:00:00 Completed [facility] Influenza Virus Vaccine 2012-03-02 00:00:00 Completed [facility] Influenza Virus Vaccine 2012-03-02 00:00:00 Completed [facility] Influenza Virus Vaccine 2012-03-02 00:00:00 Completed [facility] Influenza Virus Vaccine 2012-03-02 00:00:00 Completed [facility] Influenza Virus Vaccine 2012-03-02 00:00:00 Completed [facility] Influenza Virus Vaccine 2012-03-02 00:00:00 Completed [facility] Influenza Virus Vaccine 2012-03-02 00:00:00 Completed [facility] Influenza Virus Vaccine 2012-03-02 00:00:00 Completed [facility] Pneumococcal 7 Conjugate, PCV7 (Prevnar7) 2012-01-27 00:00:00 Completed [facility] Pneumococcal 7 Conjugate, PCV7 (Prevnar7) 2012-01-27 00:00:00 Completed [facility] Pneumococcal 7 Conjugate, PCV7 (Prevnar7) 2012-01-27 00:00:00 Completed [facility] Pneumococcal 7 Conjugate, PCV7 (Prevnar7) 2012-01-27 00:00:00 Completed [facility] Pneumococcal 7 Conjugate, PCV7 (Prevnar7) 2012-01-27 00:00:00 Completed [facility] Pneumococcal 7 Conjugate, PCV7 (Prevnar7) 2012-01-27 00:00:00 Completed [facility] Pneumococcal 7 Conjugate, PCV7 (Prevnar7) 2012-01-27 00:00:00 Completed [facility] Pneumococcal 7 Conjugate, PCV7 (Prevnar7) 2012-01-27 00:00:00 Completed [facility] Pneumococcal 7 Conjugate, PCV7 (Prevnar7) 2012-01-27 00:00:00 Completed [facility] Pneumococcal 7 Conjugate, PCV7 (Prevnar7) 2012-01-27 00:00:00 Completed [facility] Pneumococcal 7 Conjugate, PCV7 (Prevnar7) 2012-01-27 00:00:00 [facility] [facility] [place] Pneumococcal 7 Conjugate, PCV7 (Prevnar7) 2012-01-27 00:00:00 Completed [facility] [place] Pneumococcal 7 Conjugate, PCV7 (Prevnar7) 2012-01-27 00:00:00 Completed [facility] [place] Pneumococcal 7 Conjugate, PCV7 (Prevnar7) 2012-01-27 00:00:00 Completed [facility] [place] Pneumococcal 7 Conjugate, PCV7 (Prevnar7) 2012-01-27 00:00:00 Completed [facility] [place] Pneumococcal 7 Conjugate, PCV7 (Prevnar7) 2012-01-27 00:00:00 Completed [facility] [place] Pneumococcal 7 Conjugate, PCV7 (Prevnar7) 2012-01-27 00:00:00 Completed [facility] [place] Pneumococcal 7 Conjugate, PCV7 (Prevnar7) 2012-01-27 00:00:00 Completed [facility] [place] Pneumococcal 7 Conjugate, PCV7 (Prevnar7) 2012-01-27 00:00:00 Completed [facility] [place] Pneumococcal 7 Conjugate, PCV7 (Prevnar7) 2012-01-27 00:00:00 Completed [facility] [place] Pneumococcal 7 Conjugate, PCV7 (Prevnar7) 2012-01-27 00:00:00 Completed [facility] [place] Pneumococcal 7 Conjugate, PCV7 (Prevnar7) 2012-01-27 00:00:00 Completed [facility] [place] Pneumococcal 7 Conjugate, PCV7 (Prevnar7) 2012-01-27 00:00:00 Completed [facility] [place] Pneumococcal 7 Conjugate, PCV7 (Prevnar7) 2012-01-27 00:00:00 Completed [facility] [place] Pneumococcal 7 Conjugate, PCV7 (Prevnar7) 2012-01-27 00:00:00 Completed [facility] [place] Pneumococcal 7 Conjugate, PCV7 (Prevnar7) 2012-01-27 00:00:00 Completed [facility] [place] Pneumococcal 7 Conjugate, PCV7 (Prevnar7) 2012-01-27 00:00:00 Completed [facility] [place] Pneumococcal 7 Conjugate, PCV7 (Prevnar7) 2012-01-27 00:00:00 Completed [facility] [place] Pneumococcal 7 Conjugate, PCV7 (Prevnar7) 2012-01-27 00:00:00 Completed [facility] [place] Pneumococcal 7 Conjugate, PCV7 (Prevnar7) 2012-01-27 00:00:00 Completed [facility] [place] Pneumococcal 7 Conjugate, PCV7 (Prevnar7) 2012-01-27 00:00:00 Completed [facility] [place] Pneumococcal 7 Conjugate, PCV7 (Prevnar7) 2012-01-27 00:00:00 Completed [facility] [place] Pneumococcal 7 Conjugate, PCV7 (Prevnar7) 2012-01-27 00:00:00 Completed [facility] [place] Pneumococcal 7 Conjugate, PCV7 (Prevnar7) 2012-01-27 00:00:00 Completed [facility] [place] Pneumococcal 7 Conjugate, PCV7 (Prevnar7) 2012-01-27 00:00:00 Completed [facility] [place] Pneumococcal 7 Conjugate, PCV7 (Prevnar7) 2012-01-27 00:00:00 Completed [facility] [place] Pneumococcal 7 Conjugate, PCV7 (Prevnar7) 2012-01-27 00:00:00 Completed [facility] [place] Pneumococcal 7 Conjugate, PCV7 (Prevnar7) 2012-01-27 00:00:00 Completed [facility] [place] Pneumococcal 7 Conjugate, PCV7 (Prevnar7) 2012-01-27 00:00:00 Completed [facility] [place] Pneumococcal 7 Conjugate, PCV7 (Prevnar7) 2012-01-27 00:00:00 Completed [facility] [place] Pneumococcal 7 Conjugate, PCV7 (Prevnar7) 2012-01-27 00:00:00 Completed [facility] [place] Pneumococcal 7 Conjugate, PCV7 (Prevnar7) 2012-01-27 00:00:00 Completed [facility] [place] Pneumococcal 7 Conjugate, PCV7 (Prevnar7) 2012-01-27 00:00:00 Completed [facility] [place] Pneumococcal 7 Conjugate, PCV7 (Prevnar7) 2012-01-27 00:00:00 Completed [facility] [place] Pneumococcal 7 Conjugate, PCV7 (Prevnar7) 2012-01-27 00:00:00 Completed [facility] [place] Pneumococcal 7 Conjugate, PCV7 (Prevnar7) 2012-01-27 00:00:00 Completed [facility] [place] Pneumococcal 7 Conjugate, PCV7 (Prevnar7) 2012-01-27 00:00:00 Completed [facility] [place] Pneumococcal 7 Conjugate, PCV7 (Prevnar7) 2012-01-27 00:00:00 Completed [facility] [place] Pneumococcal 7 Conjugate, PCV7 (Prevnar7) 2012-01-27 00:00:00 Completed [facility] [place] Pneumococcal 7 Conjugate, PCV7 (Prevnar7) 2012-01-27 00:00:00 Completed [facility] [place] Pneumococcal 7 Conjugate, PCV7 (Prevnar7) 2012-01-27 00:00:00 Completed [facility] [place] Pneumococcal 7 Conjugate, PCV7 (Prevnar7) 2012-01-27 00:00:00 Completed [facility] [place] Pneumococcal 7 Conjugate, PCV7 (Prevnar7) 2012-01-27 00:00:00 Completed [facility] [place] Pneumococcal 7 Conjugate, PCV7 (Prevnar7) 2012-01-27 00:00:00 Completed [facility] [place] Pneumococcal 7 Conjugate, PCV7 (Prevnar7) 2012-01-27 00:00:00 Completed [facility] [place] Pneumococcal 7 Conjugate, PCV7 (Prevnar7) 2012-01-27 00:00:00 Completed [facility] [place] Pneumococcal 7 Conjugate, PCV7 (Prevnar7) 2012-01-27 00:00:00 Completed [facility] [place] Pneumococcal 7 Conjugate, PCV7 (Prevnar7) 2012-01-27 00:00:00 Completed [facility] [place] Pneumococcal 7 Conjugate, PCV7 (Prevnar7) 2012-01-27 00:00:00 Completed [facility] [place] Pneumococcal 7 Conjugate, PCV7 (Prevnar7) 2012-01-27 00:00:00 Completed [facility] [place] Pneumococcal 7 Conjugate, PCV7 (Prevnar7) 2012-01-27 00:00:00 Completed [facility] [place] Pneumococcal 7 Conjugate, PCV7 (Prevnar7) 2012-01-27 00:00:00 Completed [facility] [place] Pneumococcal 7 Conjugate, PCV7 (Prevnar7) 2012-01-27 00:00:00 Completed [facility] [place] Pneumococcal 7 Conjugate, PCV7 (Prevnar7) 2012-01-27 00:00:00 Completed [facility] [place] Pneumococcal 7 Conjugate, PCV7 (Prevnar7) 2012-01-27 00:00:00 Completed [facility] [place] Pneumococcal 7 Conjugate, PCV7 (Prevnar7) 2012-01-27 00:00:00 Completed [facility] [place] Pneumococcal 7 Conjugate, PCV7 (Prevnar7) 2012-01-27 00:00:00 Completed [facility] [place] Pneumococcal 7 Conjugate, PCV7 (Prevnar7) 2012-01-27 00:00:00 Completed [facility] [place] Pneumococcal 7 Conjugate, PCV7 (Prevnar7) 2012-01-27 00:00:00 Completed [facility] [place] Pneumococcal 7 Conjugate, PCV7 (Prevnar7) 2012-01-27 00:00:00 Completed [facility] [place] Pneumococcal 7 Conjugate, PCV7 (Prevnar7) 2012-01-27 00:00:00 Completed [facility] [place] Pneumococcal 7 Conjugate, PCV7 (Prevnar7) 2012-01-27 00:00:00 Completed [facility] [place] Pneumococcal 7 Conjugate, PCV7 (Prevnar7) 2012-01-27 00:00:00 Completed [facility] [place] Pneumococcal 7 Conjugate, PCV7 (Prevnar7) 2012-01-27 00:00:00 Completed [facility] [place] Pneumococcal 7 Conjugate, PCV7 (Prevnar7) 2012-01-27 00:00:00 Completed [facility] [place] Pneumococcal 7 Conjugate, PCV7 (Prevnar7) 2012-01-27 00:00:00 Completed [facility] [place] Pneumococcal 7 Conjugate, PCV7 (Prevnar7) 2012-01-27 00:00:00 Completed [facility] [place] Vital Signs Vital Name Observation Time Observation Value Comments S linh Body temperature 2024-11-19 16:00:00 36.44 Cris Kimberlyn Bradfordann Epic Systolic blood pressure 2024-11-19 14:00:00 125 mm[Hg] Kimberlyn serna Epic Diastolic blood pressure 2024-11-19 14:00:00 75 mm[Hg] Kimberlyn serna Epic Heart rate 2024-11-19 14:00:00 71 [facility] Respiratory rate 2024-11-19 14:00:00 20 /min [facility] Refugio Epic Oxygen saturation in Arterial blood by Pulse oximetry 2024-11-19 14:00:00 96 /min [facility] Evangelina tan Epic Body weight 2024-11-19 06:00:00 85 kg Tachochandra Bradfordann Epic BMI 2024-11-19 06:00:00 27.67 kg/m2 Tacho luis Bradfordann [facility] Body height 2024-11-10 08:06:00 175.3 cm Tacho luis Bradfordann Epic Systolic blood pressure 2024-12-07 15:15:00 195 mm[Hg] [facility] Diastolic blood pressure 2024-12-07 15:15:00 95 mm[Hg] [facility] Heart rate 2024-12-07 15:15:00 78 /min [facility] Body temperature 2024-12-07 15:13:00 36.11 Cris [facility] [place] Body height 2024-12-07 15:13:00 175.3 cm [facility] Body weight 2024-12-07 15:13:00 96.117 kg [facility] BMI 2024-12-07 15:13:00 31.29 kg/m2 [facility] Oxygen saturation in Arterial blood by Pulse oximetry 2024-12-07 15:13:00 98 /min [facility] [place] Systolic blood pressure 2024-12-07 14:55:00 195 mm[Hg] [facility] Diastolic blood pressure 2024-12-07 14:55:00 95 mm[Hg] [facility] Heart rate 2024-12-07 14:55:00 78 /min [facility] Body temperature 2024-12-07 14:54:00 36.11 Cris [facility] [place] Body height 2024-12-07 14:54:00 175.3 cm [facility] Body weight 2024-12-07 14:54:00 96.117 kg [facility] BMI 2024-12-07 14:54:00 31.29 kg/m2 [facility] Oxygen saturation in Arterial blood by Pulse oximetry 2024-12-07 14:54:00 98 /min [facility] [place] Body temperature 2024-11-19 16:00:00 36.44 Cris [facility] Creola Epic Systolic blood pressure 2024-11-19 14:00:00 125 mm[Hg] [facility] Epic Diastolic blood pressure 2024-11-19 14:00:00 75 mm[Hg] [facility] Epic Heart rate 2024-11-19 14:00:00 71 /min [facility] Epic Respiratory rate 2024-11-19 14:00:00 20 /min [facility] Epic Oxygen saturation in Arterial blood by Pulse oximetry 2024-11-19 14:00:00 96 /min [facility] nicolasann [facility] Body weight 2024-11-19 06:00:00 85 kg Tacho Huff Epic BMI 2024-11-19 06:00:00 27.67 kg/m2 Tacho Huff [facility] Body height 2024-11-10 08:06:00 175.3 cm Tachochandra Huff [facility] Body temperature 2024-11-19 16:00:00 36.44 Cris [facility] Ref[place] Epic Systolic blood pressure 2024-11-19 14:00:00 125 mm[Hg] [facility] Epic Diastolic blood pressure 2024-11-19 14:00:00 75 mm[Hg] [facility] Epic Heart rate 2024-11-19 14:00:00 71 /min [facility] Epic Respiratory rate 2024-11-19 14:00:00 20 [facility] in Arterial blood by Pulse oximetry 2024-11-19 14:00:00 96 /min [facility] ermann Epic Body weight 2024-11-19 06:00:00 85 kg Tacho Bradfordann Epic BMI 2024-11-19 06:00:00 27.67 kg/m2 Tacho Huff [facility] Body height 2024-11-10 08:06:00 175.3 cm Tacho Huff [facility] Systolic blood pressure 2024-10-21 18:06:00 154 mm[Hg] [facility] Diastolic blood pressure 2024-10-21 18:06:00 88 mm[Hg] [facility] Heart rate 2024-10-21 18:06:00 87 /min [facility] Body temperature 2024-10-21 18:05:00 37.22 Cris [facility] [place] Respiratory rate 2024-10-21 18:05:00 20 /min [facility] [place] Body height 2024-10-21 18:05:00 175.3 cm [facility] Body weight 2024-10-21 18:05:00 93.94 kg [facility] BMI 2024-10-21 18:05:00 30.58 kg/m2 [facility] Oxygen saturation in Arterial blood by Pulse oximetry 2024-10-21 18:05:00 99 /min [facility] [place] Systolic blood pressure 2024-08-03 19:36:00 119 mm[Hg] [facility] Diastolic blood pressure 2024-08-03 19:36:00 69 mm[Hg] [facility] Heart rate 2024-08-03 19:34:00 84 /min [facility] Body temperature 2024-08-03 19:34:00 36.56 Cris [facility] [place] Body height 2024-08-03 19:34:00 175.3 cm [facility] Body weight 2024-08-03 19:34:00 97.07 kg [facility] BMI 2024-08-03 19:34:00 31.60 kg/m2 [facility] Oxygen saturation in Arterial blood by Pulse oximetry 2024-08-03 19:34:00 99 /min [facility] [place] Systolic blood pressure 2024-05-26 15:31:00 128 mm[Hg] [facility] Diastolic blood pressure 2024-05-26 15:31:00 78 mm[Hg] [facility] Heart rate 2024-05-26 15:31:00 76 /min [facility] Respiratory rate 2024-05-26 15:31:00 18 /min [facility] Body height 2024-05-26 15:31:00 175.3 cm [facility] Body weight 2024-05-26 15:31:00 88.905 kg [facility] BMI 2024-05-26 15:31:00 28.94 kg/m2 [facility] Oxygen saturation in Arterial blood by Pulse oximetry 2024-05-26 15:31:00 98 /min [facility] Systolic blood pressure 2024-04-29 15:40:00 169 mm[Hg] [facility] Diastolic blood pressure 2024-04-29 15:40:00 92 mm[Hg] [facility] Heart rate 2024-04-29 15:03:00 75 /min [facility] Body temperature 2024-04-29 15:03:00 36.06 Cris [facility] Respiratory rate 2024-04-29 15:03:00 20 /min [facility] [place] Body height 2024-04-29 15:03:00 175.3 cm [facility] Body weight 2024-04-29 15:03:00 93.94 kg [facility] BMI 2024-04-29 15:03:00 30.58 kg/m2 [facility] Oxygen saturation in Arterial blood by Pulse oximetry 2024-04-29 15:03:00 99 /min [facility] Systolic blood pressure 2024-04-12 19:03:00 180 mm[Hg] [facility] Diastolic blood pressure 2024-04-12 19:03:00 91 mm[Hg] [facility] Heart rate 2024-04-12 19:03:00 83 /min [facility] Body temperature 2024-04-12 19:02:00 36.17 Cris [facility] Body height 2024-04-12 19:02:00 175.3 cm [facility] Body weight 2024-04-12 19:02:00 94.439 kg [facility] BMI 2024-04-12 19:02:00 30.75 kg/m2 [facility] Oxygen saturation in Arterial blood by Pulse oximetry 2024-04-12 19:02:00 99 /min [facility] [place] Systolic blood pressure 2024-01-21 13:11:00 159 mm[Hg] [place] [facility] Diastolic blood pressure 2024-01-21 13:11:00 90 mm[Hg] [facility] Heart rate 2024-01-21 13:10:00 84 /min [facility] Body temperature 2024-01-21 13:10:00 36.39 Cris [facility] Body height 2024-01-21 13:10:00 175.3 cm [facility] Body weight 2024-01-21 13:10:00 97.07 kg [facility] BMI 2024-01-21 13:10:00 31.60 kg/m2 [facility] Oxygen saturation in Arterial blood by Pulse oximetry 2024-01-21 13:10:00 97 /min [facility] [place] Systolic blood pressure 2024-01-21 13:11:00 159 mm[Hg] [place] [facility] Diastolic blood pressure 2024-01-21 13:11:00 90 mm[Hg] [facility] Heart rate 2024-01-21 13:09:00 84 /min [facility] Body temperature 2024-01-21 13:09:00 36.39 Cris [facility] [place] Body height 2024-01-21 13:09:00 175.3 cm [facility] Body weight 2024-01-21 13:09:00 97.07 kg [facility] BMI 2024-01-21 13:09:00 31.60 [facility] in Arterial blood by Pulse oximetry 2024-01-21 13:09:00 97 /min [facility] [place] Systolic blood pressure 2024-01-13 14:49:00 144 mm[Hg] [facility] Diastolic blood pressure 2024-01-13 14:49:00 85 mm[Hg] [facility] Heart rate 2024-01-13 14:49:00 83 /min [facility] Body temperature 2024-01-13 14:49:00 36.61 Cris [facility] [place] Respiratory rate 2024-01-13 14:49:00 16 /min [facility] [place] Body height 2024-01-13 14:49:00 175.3 cm [facility] Body weight 2024-01-13 14:49:00 100.336 kg [facility] BMI 2024-01-13 14:49:00 32.67 kg/m2 [facility] Oxygen saturation in Arterial blood by Pulse oximetry 2024-01-13 14:49:00 96 /min [facility] Systolic blood pressure 2024-01-05 18:57:00 125 mm[Hg] [facility] Diastolic blood pressure 2024-01-05 18:57:00 91 mm[Hg] [facility] Heart rate 2024-01-05 18:57:00 92 /min [facility] Oxygen saturation in Arterial blood by Pulse oximetry 2024-01-05 18:57:00 100 /min [facility] Body temperature 2024-01-05 18:56:00 36.33 Cris [facility] [place] Body height 2024-01-05 18:56:00 165.1 cm [facility] Body weight 2024-01-05 18:56:00 97.841 kg [facility] BMI 2024-01-05 18:56:00 35.89 kg/m2 [facility] Systolic blood pressure 2023-11-12 20:26:00 152 mm[Hg] [facility] Diastolic blood pressure 2023-11-12 20:26:00 84 mm[Hg] [facility] Heart rate 2023-11-12 20:26:00 73 /min [facility] Body temperature 2023-11-12 20:26:00 36.5 Cris [facility] [place] Respiratory rate 2023-11-12 20:26:00 19 /min [facility] [place] Body height 2023-11-12 20:26:00 165.1 [facility] 2023-11-12 20:26:00 96.798 kg [facility] BMI 2023-11-12 20:26:00 35.51 kg/m2 [facility] Oxygen saturation in Arterial blood by Pulse oximetry 2023-11-12 20:26:00 98 /min [facility] Systolic blood pressure 2023-10-16 20:10:00 137 mm[Hg] [facility] Diastolic blood pressure 2023-10-16 20:10:00 82 mm[Hg] [facility] Heart rate 2023-10-16 20:10:00 96 /min [facility] Respiratory rate 2023-10-16 20:10:00 21 /min [facility] Body height 2023-10-16 20:10:00 175.3 cm [facility] Body weight 2023-10-16 20:10:00 93.668 kg [facility] BMI 2023-10-16 20:10:00 30.49 kg/m2 [facility] Oxygen saturation in Arterial blood by Pulse oximetry 2023-10-16 20:10:00 97 /min [facility] Systolic blood pressure 2023-10-07 14:57:00 149 mm[Hg] [facility] Diastolic blood pressure 2023-10-07 14:57:00 91 mm[Hg] [facility] Heart rate 2023-10-07 14:56:00 98 /min [facility] Body temperature 2023-10-07 14:56:00 36.5 Cris [facility] Body height 2023-10-07 14:56:00 [facility].1 [facility] 2023-10-07 14:56:00 92.987 kg [facility] BMI 2023-10-07 14:56:00 34.11 kg[facility]2 [facility] in Arterial blood by Pulse oximetry 2023-10-07 14:56:00 98 /min [facility] Systolic blood pressure 2023-07-31 18:58:00 168 mm[Hg] [facility] Diastolic blood pressure 2023-07-31 18:58:00 92 mm[Hg] [facility] Heart rate 2023-07-31 18:58:00 74 /min [facility] Body temperature 2023-07-31 18:58:00 36.22 Cris [facility] Respiratory rate 2023-07-31 18:58:00 17 /min [facility] Body height 2023-07-31 18:58:00 175.3 cm [facility] Body weight 2023-07-31 18:58:00 83.598 kg [facility] BMI 2023-07-31 18:58:00 27.22 kg/m2 [facility] Oxygen saturation in Arterial blood by Pulse oximetry 2023-07-31 18:58:00 100 /min [facility] Systolic blood pressure 2023-07-17 13:42:00 134 mm[Hg] [facility] Diastolic blood pressure 2023-07-17 13:42:00 68 mm[Hg] [facility] Heart rate 2023-07-17 13:42:00 75 /min [facility] Body temperature 2023-07-17 13:42:00 36.44 Cris [facility] Oxygen saturation in Arterial blood by Pulse oximetry 2023-07-17 13:42:00 97 /min [facility] Respiratory rate 2023-07-17 12:57:00 22 /min [facility] Body weight 2023-07-15 14:00:00 87.59 kg [facility] BMI 2023-07-15 14:00:00 28.52 kg/m2 [facility] Body height 2023-07-03 01:49:00 175.3 cm [facility] Heart rate 2023-07-09 03:15:00 86 /min [facility] Body temperature 2023-07-09 03:15:00 35.89 Cris [facility] Oxygen saturation in Arterial blood by Pulse oximetry 2023-07-09 03:15:00 100 /min [facility] Respiratory rate 2023-07-09 02:46:00 14 /min [facility] Body weight 2023-07-08 09:00:00 88.905 kg [facility] BMI 2023-07-08 09:00:00 28.94 kg/m2 [facility] Systolic blood pressure 2023-07-08 08:17:00 148 mm[Hg] notified RN [facility] Diastolic blood pressure 2023-07-08 08:17:00 77 mm[Hg] notified RN [facility] Body height 2023-07-03 01:49:00 175.3 cm [facility] Body weight 2023-07-08 09:00:00 88.905 kg [facility] BMI 2023-07-08 09:00:00 28.94 kg/m2 [facility] Systolic blood pressure 2023-07-08 08:17:00 148 mm[Hg] notified RN [facility] Diastolic blood pressure 2023-07-08 08:17:00 77 mm[Hg] notified RN [facility] Heart rate 2023-07-08 08:17:00 67 /min [facility] Body temperature 2023-07-08 08:17:00 36.22 Rcis [facility] Respiratory rate 2023-07-08 08:17:00 18 /min [facility] [facility] Oxygen saturation in Arterial blood by Pulse oximetry 2023-07-08 08:17:00 95 /min [facility] Body height 2023-07-03 01:49:00 175.3 cm [facility] Systolic blood pressure 2023-07-04 22:11:44 130 mm[Hg] [facility] Diastolic blood pressure 2023-07-04 22:11:44 76 mm[Hg] [facility] Respiratory rate 2023-07-04 22:11:44 17 /min [facility] Oxygen saturation in Arterial blood by Pulse oximetry 2023-07-04 22:11:44 97 /min [facility] Heart rate 2023-07-04 21:39:00 67 /min [facility] Body temperature 2023-07-04 16:59:00 36.56 Cris [facility] Body weight 2023-07-04 10:00:00 93.532 kg [facility] BMI 2023-07-04 10:00:00 30.45 kg/m2 [facility] Body height 2023-07-03 01:49:00 175.3 cm [facility] Systolic blood pressure 2023-05-26 15:57:00 173 mm[Hg] [facility] Diastolic blood pressure 2023-05-26 15:57:00 92 mm[Hg] [facility] Heart rate 2023-05-26 15:57:00 74 /min [facility] Oxygen saturation in Arterial blood by Pulse oximetry 2023-05-26 15:57:00 99 /min [facility] Body temperature 2023-05-26 15:56:00 36.28 Cris [facility] Body height 2023-05-26 15:56:00 177.8 cm [facility] Body weight 2023-05-26 15:56:00 94.212 kg [facility] BMI 2023-05-26 15:56:00 29.80 kg/m2 [facility] Body weight 2023-05-02 16:22:00 91.627 kg [facility] BMI 2023-05-02 16:22:00 28.98 kg/m2 [facility] Body weight 2023-03-28 16:46:00 91.627 kg [facility] BMI 2023-03-28 16:46:00 28.98 kg/m2 [facility] Body weight 2023-02-24 15:56:00 91.627 kg [facility] BMI 2023-02-24 15:56:00 28.98 kg/m2 [facility] Systolic blood pressure 2023-02-19 15:04:00 141 mm[Hg] [facility] Diastolic blood pressure 2023-02-19 15:04:00 71 mm[Hg] [facility] Heart rate 2023-02-19 15:04:00 70 /min [facility] Body temperature 2023-02-19 15:03:00 36.28 Cris [facility] Respiratory rate 2023-02-19 15:03:00 18 /min [facility] Body height 2023-02-19 15:03:00 177.8 cm [facility] Body weight 2023-02-19 15:03:00 91.989 kg [facility] BMI 2023-02-19 15:03:00 29.10 kg/m2 [facility] Oxygen saturation in Arterial blood by Pulse oximetry 2023-02-19 15:03:00 95 /min [facility] Body weight 2023-01-27 19:27:00 92.534 kg [facility] BMI 2023-01-27 19:27:00 30.13 kg/m2 [facility] Systolic blood pressure 2023-01-13 16:09:00 144 mm[Hg] [facility] Diastolic blood pressure 2023-01-13 16:09:00 81 mm[Hg] [facility] Heart rate 2023-01-13 16:09:00 78 /min [facility] Body temperature 2023-01-13 16:09:00 35.83 Cris [facility] Respiratory rate 2023-01-13 16:09:00 16 /min [facility] Body height 2023-01-13 16:09:00 175.3 cm [facility] Body weight 2023-01-13 16:09:00 92.579 kg [facility] BMI 2023-01-13 16:09:00 30.14 kg/m2 [facility] Oxygen saturation in Arterial blood by Pulse oximetry 2023-01-13 16:09:00 96 /min [facility] Body weight 2023-01-06 15:28:00 92.08 kg [facility] BMI 2023-01-06 15:28:00 29.98 kg/m2 [facility] Systolic blood pressure 2022-11-25 18:12:00 155 mm[Hg] [facility] Diastolic blood pressure 2022-11-25 18:12:00 77 mm[Hg] [facility] Heart rate 2022-11-25 18:11:00 79 /min [facility] Body temperature 2022-11-25 18:11:00 36.39 Cris [facility] Body height 2022-11-25 18:11:00 175.3 cm [facility] Body weight 2022-11-25 18:11:00 92.08 kg [facility] BMI 2022-11-25 18:11:00 29.98 kg/m2 [facility] Oxygen saturation in Arterial blood by Pulse oximetry 2022-11-25 18:11:00 95 /min [facility] Systolic blood pressure 2022-10-21 14:58:00 132 mm[Hg] [facility] Diastolic blood pressure 2022-10-21 14:58:00 80 mm[Hg] [facility] Heart rate 2022-10-21 14:54:00 83 /min [facility] Body temperature 2022-10-21 14:54:00 36.44 Cris [facility] Body height 2022-10-21 14:54:00 175.3 cm [facility] Body weight 2022-10-21 14:54:00 88.769 kg [facility] BMI 2022-10-21 14:54:00 28.90 kg/m2 [facility] Oxygen saturation in Arterial blood by Pulse oximetry 2022-10-21 14:54:00 98 /min [facility] Systolic blood pressure 2022-10-15 19:08:00 137 mm[Hg] [facility] Diastolic blood pressure 2022-10-15 19:08:00 78 mm[Hg] [facility] Heart rate 2022-10-15 19:08:00 70 /min [facility] Body temperature 2022-10-15 19:08:00 36.89 Cris [facility] Body height 2022-10-15 19:08:00 175.3 cm [facility] Body weight 2022-10-15 19:08:00 90.629 kg [facility] BMI 2022-10-15 19:08:00 29.51 kg/m2 [facility] Oxygen saturation in Arterial blood by Pulse oximetry 2022-10-15 19:08:00 97 /min [facility] Systolic blood pressure 2022-08-26 19:04:00 157 mm[Hg] [facility] Diastolic blood pressure 2022-08-26 19:04:00 88 mm[Hg] [facility] Heart rate 2022-08-26 19:04:00 75 /min [facility] Oxygen saturation in Arterial blood by Pulse oximetry 2022-08-26 19:04:00 100 /min [facility] Body temperature 2022-08-26 19:03:00 35.83 Cris [facility] Body height 2022-08-26 19:03:00 175.3 cm [facility] Body weight 2022-08-26 19:03:00 93.895 kg [facility] BMI 2022-08-26 19:03:00 30.57 kg/m2 [facility] Systolic blood pressure 2022-07-30 20:42:00 140 mm[Hg] [facility] Diastolic blood pressure 2022-07-30 20:42:00 74 mm[Hg] [facility] Heart rate 2022-07-30 20:41:00 82 /min [facility] Body temperature 2022-07-30 20:41:00 36.67 Cris [facility] Respiratory rate 2022-07-30 20:41:00 18 /min [facility] Body height 2022-07-30 20:41:00 175.3 cm [facility] Body weight 2022-07-30 20:41:00 94.756 kg [facility] BMI 2022-07-30 20:41:00 30.85 kg/m2 [facility] Oxygen saturation in Arterial blood by Pulse oximetry 2022-07-30 20:41:00 97 /min [facility] Systolic blood pressure 2022-07-17 19:32:00 148 mm[Hg] [facility] Diastolic blood pressure 2022-07-17 19:32:00 82 mm[Hg] [facility] Heart rate 2022-07-17 19:32:00 80 /min Un[facility] Oxygen saturation in Arterial blood by Pulse oximetry 2022-07-17 19:32:00 99 /min [facility] Body temperature 2022-07-17 19:31:00 35.94 Cris [facility] Body height 2022-07-17 19:31:00 177.8 cm [facility] Body weight 2022-07-17 19:31:00 95.255 kg [facility] BMI 2022-07-17 19:31:00 30.13 kg/m2 [facility] Body height 2022-05-16 14:43:00 177.8 cm [facility] Systolic blood pressure 2022-05-07 16:21:00 136 mm[Hg] [facility] Diastolic blood pressure 2022-05-07 16:21:00 72 mm[Hg] [facility] Heart rate 2022-05-07 15:42:00 85 /min [facility] Body temperature 2022-05-07 15:42:00 35.94 Cris [facility] Respiratory rate 2022-05-07 15:42:00 18 /min [facility] Body height 2022-05-07 15:42:00 177.8 cm [facility] Body weight 2022-05-07 15:42:00 93.895 kg [facility] BMI 2022-05-07 15:42:00 29.70 kg/m2 [facility] Oxygen saturation in Arterial blood by Pulse oximetry 2022-05-07 15:42:00 97 /min [facility] Systolic blood pressure 2022-03-12 21:48:00 145 mm[Hg] [facility] Diastolic blood pressure 2022-03-12 21:48:00 71 mm[Hg] [facility] Heart rate 2022-03-12 21:47:00 71 /min [facility] Body temperature 2022-03-12 21:47:00 36.5 Cris [facility] Body weight 2022-03-12 21:47:00 94.575 kg [facility] BMI 2022-03-12 21:47:00 30.79 kg/m2 [facility] Systolic blood pressure 2022-02-04 16:30:00 147 mm[Hg] [facility] Diastolic blood pressure 2022-02-04 16:30:00 83 mm[Hg] [facility] Heart rate 2022-02-04 16:29:00 82 /min [facility] 2022-02-04 16:29:00 18 /min [facility] Body height 2022-02-04 16:29:00 175.3 cm [facility] Body weight 2022-02-04 16:29:00 90.266 kg [facility] BMI 2022-02-04 16:29:00 29.39 kg/m2 [facility] Oxygen saturation in Arterial blood by Pulse oximetry 2022-02-04 16:29:00 97 /min [facility] Systolic blood pressure 2022-01-28 15:28:00 145 mm[Hg] [facility] Diastolic blood pressure 2022-01-28 15:28:00 88 mm[Hg] [facility] Heart rate 2022-01-28 15:28:00 74 /min [facility] Oxygen saturation in Arterial blood by Pulse oximetry 2022-01-28 15:28:00 99 /min [facility] Body temperature 2022-01-28 15:27:00 36.67 Cris [facility] Respiratory rate 2022-01-28 15:27:00 16 /min [facility] Body height 2022-01-28 15:27:00 175.3 cm [facility] Body weight 2022-01-28 15:27:00 93.94 kg [facility] BMI 2022-01-28 15:27:00 30.58 kg/m2 [facility] Systolic blood pressure 2021-12-26 19:54:00 133 mm[Hg] [facility] Diastolic blood pressure 2021-12-26 19:54:00 67 mm[Hg] [facility] Body height 2021-12-26 19:52:00 175.3 cm [facility] Body weight 2021-12-26 19:52:00 91.853 kg [facility] BMI 2021-12-26 19:52:00 29.90 kg/m2 [facility] Oxygen saturation in Arterial blood by Pulse oximetry 2021-12-26 19:52:00 94 /min [facility] Heart rate 2021-12-26 19:52:00 94 /min [facility] Body temperature 2021-12-26 19:52:00 36.22 Cris [facility] Respiratory rate 2021-12-26 19:52:00 18 /min [facility] Procedures Procedure Date / Time Performed Performing Clinician Source TACROLIMUS LEVEL 2024-11-19 05:44:00 Sharon Sierra [facility] COMPLETE BLOOD COUNT 2024-11-19 05:44:00 Jacy [facility] AUTOMATED DIFFERENTIAL 2024-11-19 05:44:00 Me brooklynn Sierra [facility] BASIC METABOLIC PANEL 2024-11-19 05:44:00 Christie Sierra ra [facility] MAGNESIUM LEVEL 2024-11-19 05:44:00 Sharon Sierra [facility] orial [facility] PHOSPHORUS LEVEL 2024-11-19 05:44:00 Sharon Sierra Ak morial [facility] COMPLETE BLOOD COUNT W/DIFF AND PLATELET 2024-11-19 05:44:00 Sharon Sierra [facility] Epic Cardiac event monitor 2024-11-19 00:00:00 [facility] UA WITH MICROSCOPIC NO CULTURE 2024-11-18 18:05:00 Mariaelena Moses [facility] TACROLIMUS LEVEL 2024-11-18 05:43:00 Sharon Sierra [facility] COMPLETE BLOOD COUNT 2024-11-18 05:43:00 Jacy [facility] Epic AUTOMATED DIFFERENTIAL 2024-11-18 05:43:00 Mariela, Me era [facility] BASIC METABOLIC PANEL 2024-11-18 05:43:00 Mariela, Christie ra [facility] MAGNESIUM LEVEL 2024-11-18 05:43:00 Mariela, Sharon Mem [facility] PHOSPHORUS LEVEL 2024-11-18 05:43:00 Mariela, Sharon Me morial [facility] COMPLETE BLOOD COUNT W/DIFF AND PLATELET 2024-11-18 05:43:00 Mariela, Sharon [facility] Epic PTT 2024-11-18 05:43:00 Calos, Federicakhd eep Stafford [facility] TACROLIMUS LEVEL 2024-11-17 05:38:00 Charli, Cooper andrade [facility] PT AND PTT 2024-11-17 01:04:00 Calos, Sukhd eep Stafford [facility] BASIC METABOLIC PANEL 2024-11-17 01:03:00 Charli, Addis Elder [facility] MAGNESIUM LEVEL 2024-11-17 01:03:00 Charli, Cooper Elder [facility] PHOSPHORUS LEVEL 2024-11-17 01:03:00 CharliCooper [facility] COMPLETE BLOOD COUNT 2024-11-17 01:02:00 CharliCooper [facility] AUTOMATED DIFFERENTIAL 2024-11-17 01:02:00 Charli, Dave Elder [facility] COMPLETE BLOOD COUNT W/DIFF AND PLATELET 2024-11-17 01:02:00 Cooper Augustin [facility] ENTERIC PATHOGENS WITH CULTURE IF INDICATED 2024-11-16 21:26:00 Shayy Carrasco [facility] PT AND PTT 2024-11-16 18:13:00 Kalee Vincent am [facility] PT AND PTT 2024-11-16 09:59:00 Kalee Vincent amhadri [facility] TACROLIMUS LEVEL 2024-11-16 05:34:00 Cooper Augustin [facility] KAPPA/LAMBDA FREE LIGHT CHAINS QUANTITIATIVE WITH RATIO 2024-11-16 05:34:00 Shayy Carrasco [facility] COMPLETE BLOOD COUNT 2024-11-16 05:34:00 Cooper Augustin [facility] AUTOMATED DIFFERENTIAL 2024-11-16 05:34:00 Charli, Al ex [facility] BASIC METABOLIC PANEL 2024-11-16 05:34:00 Charli, Addis Elder [facility] MAGNESIUM LEVEL 2024-11-16 05:34:00 CharliCooper [facility] PHOSPHORUS LEVEL 2024-11-16 05:34:00 Cooper Augustin [facility] COMPLETE BLOOD COUNT W/DIFF AND PLATELET 2024-11-16 05:34:00 CharliCooper [facility] PTT 2024-11-15 23:17:00 Gerardo Hoffman [facility] NM BONE WHOLE BODY 2024-11-15 15:28:00 Salena Mcnulty [facility] NM TUMOR LOCALIZATION SPECT CT 1 AREA 1 DAY 2024-11-15 15:27:49 Salena Mcnulty [facility] PT AND PTT 2024-11-15 12:14:00 Saleem Rendon [facility] MRI ABDOMEN PELVIS W AND WO IV CONTRAST 2024-11-15 10:13:00 Vatsis, Kalyn Wooten [facility] BLOOD CULTURE 2024-11-15 05:40:00 Shayy Carrasco [facility] CYTOMEGALOVIRUS BY PCR QUANTITATIVE 2024-11-15 05:16:00 Shayy Carrasco [facility] BK VIRUS BY PCR QUANTITATIVE 2024-11-15 05:16:00 Shayy Carrasco [facility] TACROLIMUS LEVEL 2024-11-15 05:16:00 Cooper Augustni [facility] PT AND PTT 2024-11-15 05:16:00 Gerardo Hoffman Vir [facility] COMPLETE BLOOD COUNT 2024-11-15 05:16:00 Cooper Augustin [facility] AUTOMATED DIFFERENTIAL 2024-11-15 05:16:00 Charli, Al ex [facility] BASIC METABOLIC PANEL 2024-11-15 05:16:00 Charli, Addis alvarado Jerrod [facility] MAGNESIUM LEVEL 2024-11-15 05:16:00 CharliCooper [facility] PHOSPHORUS LEVEL 2024-11-15 05:16:00 Charli, Cooper andrade [facility] COMPLETE BLOOD COUNT W/DIFF AND PLATELET 2024-11-15 05:16:00 Charli, Cooper Elder [facility] BLOOD CULTURE 2024-11-15 05:16:00 LunaShayy [facility] PTT 2024-11-14 21:09:00 Kiki Live [facility] TRANSPLANT RESPIRATORY VIRAL PANEL [facility] 2024-11-14 13:10:00 LunaShayy [facility] PTT 2024-11-14 13:01:00 CalosKiki meeks [facility] TACROLIMUS LEVEL 2024-11-14 05:37:00 Charli, Cooper andrade [facility] COMPLETE BLOOD COUNT 2024-11-14 05:37:00 Charli, Cooper Elder [facility] AUTOMATED DIFFERENTIAL 2024-11-14 05:37:00 Charli, Al yan Elder [facility] BASIC METABOLIC PANEL 2024-11-14 05:37:00 Charli, Addis christiano Elder [facility] MAGNESIUM LEVEL 2024-11-14 05:37:00 Charli, Cooper Elder [facility] PHOSPHORUS LEVEL 2024-11-14 05:37:00 Charli, Cooper andrade [facility] COMPLETE BLOOD COUNT W/DIFF AND PLATELET 2024-11-14 05:37:00 Charli, Cooper Elder [facility] PTT 2024-11-14 05:37:00 K[facility] PTT 2024-11-13 20:51:00 Kiki Live [facility] PROTEIN URINE (UPE) 2024-11-13 19:16:00 Salena Mcnulty [facility] PROTEIN ELECTROPHORESIS URINE PANEL 2024-11-13 19:16:00 Salena Mcnulty [facility] US CAROTID ARTERY DOPPLER BILATERAL 2024-11-13 13:28:00 Salena Mcnulty [facility] PROTEIN ELECTROPHORESIS W/ GEORGE IF INDICATED 2024-11-13 12:03:00 Salena Mcnulty [facility] PROTEIN ELECTROPHORESIS W/ GEORGE IF INDICATED 2024-11-13 12:03:00 Salena Mcnulty [facility] PROTEIN TOTAL 2024-11-13 12:03:00 Salena Mcnulty [facility] PTT 2024-11-13 12:02:00 Salena Mcnulty l [facility] UA WITH MICROSCOPIC NO CULTURE 2024-11-13 05:48:00 Going, Isaiah White [facility] TACROLIMUS LEVEL 2024-11-13 05:47:00 Charli, Cooper andrade [facility] PT AND PTT 2024-11-13 05:47:00 Gerardo Hoffman [facility] COMPLETE BLOOD COUNT 2024-11-13 05:47:00 Charli, Cooper Elder [facility] AUTOMATED DIFFERENTIAL 2024-11-13 05:47:00 Charli, Dave Elder [facility] BASIC METABOLIC PANEL 2024-11-13 05:47:00 Charli, Addis Elder [facility] MAGNESIUM LEVEL 2024-11-13 05:47:00 Charli, Cooper Elder [facility] PHOSPHORUS LEVEL 2024-11-13 05:47:00 Charli, Cooper andrade [facility] COMPLETE BLOOD COUNT W/DIFF AND PLATELET 2024-11-13 05:47:00 Charli, Cooper Elder [facility] PT AND PTT 2024-11-13 00:51:00 Gerardo Hoffman [facility] US KIDNEY TRANSPLANT 2024-11-12 23:08:00 [facility] 2024-11-12 17:02:00 Going[facility] AUT[facility]FFERENTIAL 2024-11-12 17:02:00 [facility] [facility] COMPLETE BLOOD COUNT W/DIFF AND PLATELET 2024-11-12 17:02:00 Going, Isaiah White [facility] PROTIME-INR 2024-11-12 17:02:00 Going[facility] 2024-11-12 17:02:00 Going, Isaiah [facility] MRI CARDIAC MORPHOLOGY AND FUNCTION W AND WO IV CONTRAST 2024-11-12 11:30:00 Gerardo Hoffman [facility] TACROLIMUS LEVEL 2024-11-12 06:14:00 Charli, Cooper andrade [facility] COMPLETE BLOOD COUNT 2024-11-12 06:14:00 Charli, Cooper Elder [facility] AUTOMATED DIFFERENTIAL 2024-11-12 06:14:00 Charli, Al ex [facility] BASIC METABOLIC PANEL 2024-11-12 06:14:00 Charli, Addis christiano Elder [facility] MAGNESIUM LEVEL 2024-11-12 06:14:00 Charli, Cooper Elder [facility] PHOSPHORUS LEVEL 2024-11-12 06:14:00 Charli, Cooper andrade [facility] COMPLETE BLOOD COUNT W/DIFF AND PLATELET 2024-11-12 06:14:00 Charli, Cooper Elder [facility] URIC ACID 2024-11-11 15:38:00 Going, Isaiah White [facility] C DIFFICILE DNA WITH REFLEX TO TOXIN IF INDICATED 2024-11-11 08:17:00 Charli, Cooper Elder [facility] TACROLIMUS LEVEL 2024-11-11 05:53:00 Charli, Cooper andrade [facility] COMPLETE BLOOD COUNT 2024-11-11 05:53:00 Charli, Cooper Elder [facility] AUTOMATED DIFFERENTIAL 2024-11-11 05:53:00 Charli, Al ex Jerrod [facility] BASIC METABOLIC PANEL 2024-11-11 05:53:00 Charli, Addis Elder [facility] MAGNESIUM LEVEL 2024-11-11 05:53:00 Charli, Cooper Elder [facility] PHOSPHORUS LEVEL 2024-11-11 05:53:00 Charli, Cooper andrade [facility] COMPLETE BLOOD COUNT W/DIFF AND PLATELET 2024-11-11 05:53:00 Charli, Cooper Elder [facility] TRANSTHORACIC ECHO (TTE) COMPLETE W/ CONTRAST AND STRAIN 2024-11-10 08:40:00 Charli, Cooper Elder [facility] TACROLIMUS LEVEL 2024-11-10 04:41:00 Charli, Cooper andrade [facility] BASIC METABOLIC PANEL 2024-11-10 04:41:00 Charli, Addis lEder [facility] MAGNESIUM LEVEL 2024-11-10 04:41:00 Charli, Cooper Elder [facility] PHOSPHORUS LEVEL 2024-11-10 04:41:00 Charli, Cooper andrade [facility] CT BRAIN WO IV CONTRAST 2024-11-10 00:14:38 Charli, Nelson Elder [facility] TRANSPLANT RESPIRATORY VIRAL PANEL [facility] 2024-11-09 22:20:00 Charli, Cooper Elder [facility] COMPLETE BLOOD COUNT 2024-11-09 22:19:00 Charli, Cooper Elder [facility] AUTOMATED DIFFERENTIAL 2024-11-09 22:19:00 Charli, Al yan Elder [facility] BASIC METABOLIC PANEL 2024-11-09 22:19:00 Charli, Addis x Jerrod [facility] LIPID PANEL W/CALCULATED LDL 2024-11-09 22:19:00 Charli Cooper Elder [facility] HEMOGLOBIN A1C 2024-11-09 22:19:00 Charli, Cooper Elder [facility] COMPLETE BLOOD COUNT W/DIFF AND PLATELET 2024-11-09 22:19:00 Charli Cooper Elder [facility] CT ANGIOGRAM CHEST PULMONARY EMBOLISM 2024-11-09 15:47:24 Kendal Conde [facility] TROPONIN I HIGH SENSITIVITY CARESET (1ST HR) 2024-11-09 12:31:00 Favio Noe [facility] XR CHEST 1 VIEW 2024-11-09 11:52:00 Brannon Noe [facility] TROPONIN I HIGH SENSITIVITY CARESET 2024-11-09 11:27:00 Favio Noe [facility] TROPONIN I HIGH SENSITIVITY CARESET (BASELINE) 2024-11-09 11:27:00 Favio Noe [facility] COMPLETE BLOOD COUNT 2024-11-09 11:27:00 Favio Noe [facility] AUTOMATED DIFFERENTIAL 2024-11-09 11:27:00 Jeaneo Favio andrade [facility] BASIC METABOLIC PANEL 2024-11-09 11:27:00 Favio Noe [facility] MAGNESIUM LEVEL 2024-11-09 11:27:00 Brannon Noe [facility] B-TYPE NATRIURETIC PEPTIDE 2024-11-09 11:27:00 Favio Mahmood [facility] PHOSPHORUS LEVEL 2024-11-09 11:27:00 Ofelia Noe [facility] COMPLETE BLOOD COUNT W/DIFF AND PLATELET 2024-11-09 11:27:00 Favio Noe [facility] ECG 12-LEAD 2024-11-09 11:26:15 Brannon Noeelle [facility] POC GLUCOSE UNSOLICITED RESULTS 2024-11-09 11:16:00 JuanRandolph das [facility] Epic FREE T4 2024-08-03 20:20:00 Abner Rivera [facility] THYROID STIMULATING HORMONE 2024-08-03 20:20:00 Nicole [facility] LIPID PANEL (60716)(TOTAL CHOLESTEROL, TRIGLYCERIDES, HDL) 2024-08-03 20:20:00 Nicole [facility] GLYCOSYLATED HEMOGLOBIN (A1C) 2024-08-03 20:20:00 Nicole [facility] VITAMIN D, 25-OH 2024-08-03 20:20:00 Nicole [facility] FREE T3 2024-08-03 20:20:00 Nicole [facility] TDAP VACCINE, >11 YRS, IM 2024-01-21 13:27:55 Everton lopez [facility] SARS-COV-2 COVID 19 BRITTANEY SUCROSE VACCINE 12+, , 0.3 ML (30 MCG), IM PFIZER (ROCHA TOP) 2024-01-21 13:27:55 Nicole [facility] FLU VACC(),65+YR,0.5 ML,IM,ADJUVANTED,TIV(FLUAD ) 2024-01-13 14:50:29 Tomeka Hoyos [facility] INTACT PTH CALCIUM GROUP 2024-01-05 21:20:00 Shanae, As im [facility] EXTERNAL DD-CFDNA 2024-01-05 05:00:00 Behzad Jolly [facility] FREE T4 2023-10-07 15:37:00 Nicolle Phillips [facility] THYROID STIMULATING HORMONE 2023-10-07 15:37:00 Nicolle Phillips [facility] COMP. METABOLIC PANEL (20812) 2023-10-07 15:37:00 Nicolle Phillips [facility] LIPID PANEL (90432)(TOTAL CHOLESTEROL, TRIGLYCERIDES, HDL) 2023-10-07 15:37:00 Phil Phillipsssica [facility] CBC WITH DIFF 2023-10-07 15:37:00 Phillips [facility] GLYCOSYLATED HEMOGLOBIN (A1C) 2023-10-07 15:37[facility]00 [facility] 2023-10-07 15:37:00 [place] Nicolle [facility] POCT GLUCOSE (AUTOMATED) 2023-07-17 13:43:00 LickJosé Miguelo tt [facility] TACROLIMUS, LEVEL 2023-07-17 10:17:00 Parminder Rueda As if [facility] POCT GLUCOSE (AUTOMATED) 2023-07-17 08:23:00 Lick, José Miguelo tt [facility] POCT GLUCOSE (AUTOMATED) 2023-07-17 04:13:00 Lick, Sco tt [facility] POCT GLUCOSE (AUTOMATED) 2023-07-17 01:23:00 Lick, Sco tt [facility] POCT GLUCOSE (AUTOMATED) 2023-07-16 22:11:00 Lick, Sco tt [facility] POCT GLUCOSE (AUTOMATED) 2023-07-16 16:39:00 Lick, Sco tt [facility] POCT GLUCOSE (AUTOMATED) 2023-07-16 12:33:00 Lick, Sco tt [facility] POCT GLUCOSE (AUTOMATED) 2023-07-16 08:30:00 Lick, Sco tt [facility] POCT GLUCOSE (AUTOMATED) 2023-07-16 04:16:00 Lick, Sco tt [facility] BASIC METABOLIC PANEL (NA, K, CL, CO2, GLUCOSE, BUN, CREATININE, CA) 2023-07-15 22:41:00 Pam Stearns [facility] TACROLIMUS, LEVEL 2023-07-15 22:41:00 Pam Stearns [facility] POCT GLUCOSE (AUTOMATED) 2023-07-15 21:18:00 Lick, José Miguelo tt [facility] POCT GLUCOSE (AUTOMATED) 2023-07-15 16:50:00 Lick, Sco tt [facility] POCT GLUCOSE (AUTOMATED) 2023-07-15 12:38:00 Lick, José Miguelo tt [facility] POCT GLUCOSE (AUTOMATED) 2023-07-15 09:39:00 Lick, Sco tt [facility] POCT GLUCOSE (AUTOMATED) 2023-07-15 05:18:00 Lick, José Miguelo tt [facility] POCT GLUCOSE (AUTOMATED) 2023-07-15 02:22:00 Lick, Sco tt [facility] POCT GLUCOSE (AUTOMATED) 2023-07-14 21:00:00 Lick, Sco tt [facility] POCT GLUCOSE (AUTOMATED) 2023-07-14 16:40:00 Lick, Sco tt [facility] POCT GLUCOSE (AUTOMATED) 2023-07-14 12:34:00 Lick, Sco tt [facility] POCT GLUCOSE (AUTOMATED) 2023-07-14 09:28:00 Lick, José Miguelo tt [facility] POCT GLUCOSE (AUTOMATED) 2023-07-14 05:05:00 Lick, Sco tt [facility] POCT GLUCOSE (AUTOMATED) 2023-07-14 02:35:00 Lick, Deo tt [facility] POCT GLUCOSE (AUTOMATED) 2023-07-13 20:41:00 Lick, Sco tt [facility] POCT GLUCOSE (AUTOMATED) 2023-07-13 16:57:00 Lick, Sco tt [facility] POCT GLUCOSE (AUTOMATED) 2023-07-13 13:06:00 Lick, Deo tt [facility] XR CHEST 2 VW 2023-07-13 11:41:24 Elidia Raphael [facility] TACROLIMUS, LEVEL 2023-07-13 09:51:00 Parminder Rueda if [facility] POCT GLUCOSE (AUTOMATED) 2023-07-13 08:10:00 Lick, Sco tt [facility] POCT GLUCOSE (AUTOMATED) 2023-07-13 04:11:00 Lick, Sco tt [facility] POCT GLUCOSE (AUTOMATED) 2023-07-13 00:34:00 Lick, Sco tt [facility] POCT GLUCOSE (AUTOMATED) 2023-07-12 21:30:00 Lick, Sco tt [facility] POCT GLUCOSE (AUTOMATED) 2023-07-12 16:49:00 Lick, Sco tt [facility] POCT GLUCOSE (AUTOMATED) 2023-07-12 12:51:00 Lick, Sco tt [facility] BASIC METABOLIC PANEL (NA, K, CL, CO2, GLUCOSE, BUN, CREATININE, CA) 2023-07-12 09:53:00 Elidia Aragon [facility] TACROLIMUS, LEVEL 2023-07-12 09:53:00 Parminder Rueda As if [facility] CBC WITH DIFF 2023-07-12 09:53:00 Raphael Elidia [facility] POCT GLUCOSE (AUTOMATED) 2023-07-12 09:52:00 Lick, Joés Miguelo tt [facility] POCT GLUCOSE (AUTOMATED) 2023-07-12 05:11:00 Lick, José Miguelo tt [facility] POCT GLUCOSE (AUTOMATED) 2023-07-12 01:40:00 Lick, José Miguelo [facility] EKG-12 LEAD 2023-07-12 00:21:45 Jt Alejandro [facility] MAGNESIUM 2023-07-12 00:09:00 Allen Pattersonacio [facility] BASIC METABOLIC PANEL (NA, K, CL, CO2, GLUCOSE, BUN, CREATININE, CA) 2023-07-12 00:09:00 Allen Townsend [facility] HB ECG ROUTINE & RHYTHM STRIP 2023-07-12 00:05:30 Allen Townsendacio [facility] EKG-12 LEAD 2023-07-11 23:50:46 Javon [facility] POCT GLUCOSE (AUTOMATED) 2023-07-11 21:18:00 LickJosé Miguelo tt [facility] POCT GLUCOSE (AUTOMATED) 2023-07-11 20:38:00 Lick, José Miguelo carmen [facility] CBC WITH DIFF 2023-07-11 16:23:00 Savanna Salinas [facility] POCT GLUCOSE (AUTOMATED) 2023-07-11 16:22:00 LickJosé Miguelo tt [facility] TRANSFUSE PACKED RBC 2023-07-11 14:15:00 Tequila Brown [facility] PREPARE PACKED RBC 2023-07-11 14:05:53 Isauro Brown [facility] POCT GLUCOSE (AUTOMATED) 2023-07-11 13:00:00 LickJosé Miguelo carmen [facility] HB ABO GROUPING 2023-07-11 12:08:00 [facility] 2023-07-11 11:33:00 Isauro Brown [facility] PHOSPHORUS 2023-07-11 10:19:00 Isauro Brown [facility] MAGNESIUM 2023-07-11 10:19:00 Isauro Brown [facility] BASIC METABOLIC PANEL (NA, K, CL, CO2, GLUCOSE, BUN, CREATININE, CA) 2023-07-11 10:19:00 Isauro Brown [facility] TACROLIMUS, LEVEL 2023-07-11 10:19:00 Parminder Rueda As if [facility] CBC WITHOUT DIFF 2023-07-11 10:19:00 Isauro Brown [facility] POCT GLUCOSE (AUTOMATED) 2023-07-11 10:17:00 Lick, José Miguelo carmen [facility] POCT GLUCOSE (AUTOMATED) 2023-07-11 07:11:00 Lick, José Miguelo carmen [facility] POCT GLUCOSE (AUTOMATED) 2023-07-11 01:59:00 LickJosé Miguelo carmen [facility] POCT GLUCOSE (AUTOMATED) 2023-07-10 22:10:00 Lick, José Miguelo tt [facility] POCT GLUCOSE (AUTOMATED) 2023-07-10 16:42:00 Lick, José Miguelo tt [facility] XR KUB 2023-07-10 16:24:00 Kristofer Fitch [facility] TACROLIMUS, LEVEL 2023-07-10 15:41:00 Mookie Landis in [facility] POCT GLUCOSE (AUTOMATED) 2023-07-10 12:56:00 Damian Alejandro [facility] PHOSPHORUS 2023-07-10 09:21:00 Isauro Brown [facility] MAGNESIUM 2023-07-10 09:21:00 Kevin Isauro [facility] BASIC METABOLIC PANEL (NA, K, CL, CO2, GLUCOSE, BUN, CREATININE, CA) 2023-07-10 09:21:00 Denita Brownenzo [facility] CBC WITHOUT DIFF 2023-07-10 09:21:00 Isauro Brown [facility] AC PANEL 20 + LACTIC ACID 2023-07-10 09:21:00 Kristofer Fitch [facility] POCT GLUCOSE (AUTOMATED) 2023-07-10 05:26:00 Damian Alejandro [facility] POCT GLUCOSE (AUTOMATED) 2023-07-10 01:47:00 Damian Alejandro [facility] AC PANEL 20 + LACTIC ACID 2023-07-09 17:42:00 [facility] + LACTIC ACID 2023-07-09 17:42:00 Constantine [facility] AC PANEL 20 + LACTIC ACID 2023-07-09 17:42:00 [facility] ([facility]OMATED) 2023-07-09 13:20:00 ChuykDamian [facility] POCT GLUCOSE (AUTOMATED) 2023-07-09 13:20:00 LickJosé Miguelo carmen [facility] POCT GLUCOSE (AUTOMATED) 2023-07-09 13:20:00 ChuykJosé Miguelo tt [facility] PHOSPHORUS 2023-07-09 09:07:00 Darling Nolen [facility] MAGNESIUM 2023-07-09 09:07:00 Darling Nolen [facility] BASIC METABOLIC PANEL (NA, K, CL, CO2, GLUCOSE, BUN, CREATININE, CA) 2023-07-09 09:07:00 Kerry Nolen [facility] CBC WITH DIFF 2023-07-09 09:07:00 Nolen, Darling damon [facility] PROTHROMBIN TIME / INR 2023-07-09 09:07:00 [facility] 2023-07-09 09:07:00 Nolen, Darling damon [facility] MAGNESIUM 2023-07-09 09:07:00 Nolen, Nor a [facility] BASIC METABOLIC PANEL (NA, K, CL, CO2, GLUCOSE, BUN, CREATININE, CA) 2023-07-09 09:07:00 Kerry Nolen [facility] CBC WITH DIFF 2023-07-09 09:07:00 Nolen, Darling damon [facility] PROTHROMBIN TIME / INR 2023-07-09 09:07:00 Vasqu ezKerry [facility] PHOSPHORUS 2023-07-09 09:07:00 Nolen, Darling a [facility] MAGNESIUM 2023-07-09 09:07:00 Nolen, Nor a [facility] BASIC METABOLIC PANEL (NA, K, CL, CO2, GLUCOSE, BUN, CREATININE, CA) 2023-07-09 09:07:00 [facility]FF 2023-07-09 09:07:00 Nolen, Darling damon [facility] PROTHROMBIN TIME / INR 2023-07-09 09:07:00 Vasqu ezKerry [facility] POCT GLUCOSE (AUTOMATED) 2023-07-09 09:06:00 Lick, Sco tt [facility] POCT GLUCOSE (AUTOMATED) 2023-07-09 09:06:00 Lick, Sco tt [facility] POCT GLUCOSE (AUTOMATED) 2023-07-09 09:06:00 Lick, Sco tt [facility] XR CHEST 1 VW 2023-07-09 08:54:00 Darling Nolenhleen [facility] XR CHEST 1 VW 2023-07-09 08:54:00 [facility] 2023-07-09 08:54:00 Darling Nolen [facility] POCT GLUCOSE (AUTOMATED) 2023-07-09 07:34:00 Lick, Sco tt [facility] POCT GLUCOSE (AUTOMATED) 2023-07-09 07:34:00 Lick, Sco tt [facility] POCT GLUCOSE (AUTOMATED) 2023-07-09 07:34:00 Lick, Sco tt [facility] CBC WITH DIFF 2023-07-09 07:26:00 Savanna Salinas [facility] CBC WITH DIFF 2023-07-09 07:26:00 Savanna Salinas [facility] CBC WITH DIFF 2023-07-09 07:26:00 Savanna Salinsa [facility] POCT GLUCOSE (AUTOMATED) 2023-07-09 04:40:00 Lick, Sco tt [facility] POCT GLUCOSE (AUTOMATED) 2023-07-09 04:40:00 Lick, Sco tt [facility] POCT GLUCOSE (AUTOMATED) 2023-07-09 04:40:00 Lick, Sco tt [facility] TRANSFUSE PACKED RBC 2023-07-09 04:25:00 Darron Salinas [facility] TRANSFUSE PACKED RBC 2023-07-09 04:25:00 Darron Salinas [facility] TRANSFUSE PACKED RBC 2023-07-09 04:25:00 Darron Salinas [facility] PREPARE PACKED RBC 2023-07-09 04:15:12 Savanna Salinas [facility] PREPARE PACKED RBC 2023-07-09 04:15:12 Savanna Salinas [facility] PREPARE PACKED RBC 2023-07-09 04:15:12 Savanna Salinas [facility] XR CHEST 1 VW 2023-07-09 03:26:19 Savanna Salinas [facility] XR CHEST 1 VW 2023-07-09 03:26:19 Savanna Salinas [facility] XR CHEST 1 VW 2023-07-09 03:26:19 Savanna Salinas [facility] PREPARE PACKED RBC 2023-07-09 02:54:21 [facility] 2023-07-09 02:54:21 [facility] 2023-07-09 02:54:21 Julio Hussein [facility] AC PANEL 20 + LACTIC ACID 2023-07-09 02:42:00 Constantine [facility] AC PANEL 20 + LACTIC ACID 2023-07-09 02:42:00 Constantine [facility] AC PANEL 20 + LACTIC ACID 2023-07-09 02:42:00 Constantine [facility] BASIC METABOLIC PANEL (NA, K, CL, CO2, GLUCOSE, BUN, CREATININE, CA) 2023-07-09 02:41:00 Savanna Salinas [facility] CBC WITH DIFF 2023-07-09 02:41:00 Savanna Salinas [facility] PROTHROMBIN TIME / INR 2023-07-09 02:41:00 Nazario Salinas [facility] ACTIVATED PARTIAL THRMPLAS ROSEMARY 2023-07-09 02:41:00 Savanna Salinas [facility] BASIC METABOLIC PANEL (NA, K, CL, CO2, GLUCOSE, BUN, CREATININE, CA) 2023-07-09 02:41:00 Savanna Salinas [facility] CBC WITH DIFF 2023-07-09 02:41:00 Savanna Salinas [facility] PROTHROMBIN TIME / INR 2023-07-09 02:41:00 Nazario Salinas [facility] ACTIVATED PARTIAL THRMPLAS ROSEMARY 2023-07-09 02:41:00 Savanna Salinas [facility] BASIC METABOLIC PANEL (NA, K, CL, CO2, GLUCOSE, BUN, CREATININE, CA) 2023-07-09 02:41:00 Savanna Salinas [facility] CBC WITH DIFF 2023-07-09 02:41:00 Savanna Salinas [facility] PROTHROMBIN TIME / INR 2023-07-09 02:41:00 Nazario Salinas [facility] ACTIVATED PARTIAL THRMPLAS ROSEMARY 2023-07-09 02:41:00 Savanna Salinas [facility] TRANSFUSE PLATELETS 2023-07-09 01:47:00 [facility] 2023-07-09 01:47:00 Volnov, [facility]ATELETS 2023-07-09 01:47:00 Volnov, [facility]ATELETS 2023-07-09 01:44:00 Volnov, [facility]ATELETS 2023-07-09 01:44:00 Volnov, [facility]SF[facility]ATELETS 2023-07-09 01:44:00 Volnov, Julio [facility] PREPARE PLATELETS 2023-07-09 01:38:45 Volnov, Julio [facility]ATELETS 2023-07-09 01:38:45 Volnov, Julio [facility]ATELETS 2023-07-09 01:38:45 Volnov, Julio [facility] TRANSF[facility] PACKED RBC 2023-07-09 01:30:00 Darron Salinas [facility] TRANSFUSE PACKED RBC 2023-07-09 01:30:00 Darron Salinas [facility] TRANSFUSE PACKED RBC 2023-07-09 01:30:00 Darron Salinas [facility] ABG+COOX+NA+K+GLU+CA2+ 2023-07-09 01:24:00 Jt Alejandro [facility] ACUTE CARE ARTERIAL 2023-07-09 01:17:00 José Miguel Alejandro [facility] ACUTE CARE ARTERIAL 2023-07-09 01:17:00 José Miguel Alejandro [facility] ISTAT ACUTE CARE ARTERIAL 2023-07-09 01:17:00 José Miguel Alejandro [facility] CHEST EXPLORATION 2023-07-09 00:33:00 Jt Alejandro [facility] CHEST EXPLORATION 2023-07-09 00:33:00 Jt Alejandro [facility] ACTIVATED PARTIAL THRMPLAS ROSEMARY 2023-07-09 00:27:00 Sanket Blair [facility] ACTIVATED PARTIAL THRMPLAS ROSEMARY 2023-07-09 00:27:00 Sanket Blair [facility] ACTIVATED PARTIAL THRMPLAS ROSEMARY 2023-07-09 00:27:00 Sanket Blair [facility] PHOSPHORUS 2023-07-08 23:53:00 Kari Peter [facility] MAGNESIUM 2023-07-08 23:53:00 Kari Peter [facility] BASIC METABOLIC PANEL (NA, K, CL, CO2, GLUCOSE, BUN, CREATININE, CA) 2023-07-08 23:53:00 Pippa Peter [facility] CBC WITH DIFF 2023-07-08 23:53:00 Kari Peter [facility] PROTHROMBIN TIME / INR 2023-07-08 23:53:00 Pippa Peter [facility] ACTIVATED PARTIAL THRMPLAS ROSEMARY 2023-07-08 23:53:00 Pippa Peter [facility] FIBRINOGEN 2023-07-08 23:53:00 Kari Peter [facility] PHOSPHORUS 2023-07-08 23:53:00 Kari Peter [facility] MAGNESIUM 2023-07-08 23:53:00 Kari Peter [facility] BASIC METABOLIC PANEL (NA, K, CL, CO2, GLUCOSE, BUN, CREATININE, CA) 2023-07-08 23:53:00 Pippa Peter [facility] CBC WITH DIFF 2023-07-08 23:53:00 Kari Peter [facility] PROTHROMBIN TIME / INR 2023-07-08 23:53:00 Pippa Peter [facility] ACTIVATED PARTIAL THRMPLAS ROSEMARY 2023-07-08 23:53:00 Pippa Peter [facility] FIBRINOGEN 2023-07-08 23:53:00 Kari Peter [facility] PHOSPHORUS 2023-07-08 23:53:00 Kari Peter [facility] MAGNESIUM 2023-07-08 23:53:00 Kari Peter [facility] BASIC METABOLIC PANEL (NA, K, CL, CO2, GLUCOSE, BUN, CREATININE, CA) 2023-07-08 23:53:00 Pippa Peter [facility] CBC WITH DIFF 2023-07-08 23:53:00 Kari Peter [facility] PROTHROMBIN TIME / INR 2023-07-08 23:53:00 Pippa Peter [facility] ACTIVATED PARTIAL THRMPLAS ROSEMARY 2023-07-08 23:53:00 Pippa Peter [facility] FIBRINOGEN 2023-07-08 23:53:00 Kari Peter [facility] HB ECG ROUTINE & RHYTHM STRIP 2023-07-08 19:44:47 Kerry Nolen [facility] HB ECG ROUTINE & RHYTHM STRIP 2023-07-08 19:44:47 Kerry Nolen [facility] HB ECG ROUTINE & RHYTHM STRIP 2023-07-08 19:44:47 Kerry Nolen [facility] XR ABDOMEN 1 VW 2023-07-08 19:39:19 Callum, Nor nelson [facility] XR CHEST 1 2023-07-08 19:39:19 Callum, Nor nelson [facility] XR ABDOMEN 1 2023-07-08 19:39:19 Callum, Nor nelson [facility] XR CHEST 1 2023-07-08 19:39:19 Callum, Nor nelson [facility] XR ABDOMEN 1 VW 2023-07-08 19:39:19 Callum, Nor nelson [facility] XR CHEST 1 VW 2023-07-08 19:39:19 Darling Nolen [facility] AC PANEL 20 + LACTIC ACID 2023-07-08 19:17:00 [facility] + LACTIC ACID 2023-07-08 19:17:00 Constantine [facility] AC PANEL 20 + LACTIC ACID 2023-07-08 19:17:00 Constantine [facility] PROTHROMBIN TIME / INR 2023-07-08 19:15:00 Tez Brandt [facility] ACTIVATED PARTIAL THRMPLAS ROSEMARY 2023-07-08 19:15:00 Tez Carrasco Ignacio [facility] FIBRINOGEN 2023-07-08 19:15:00 Chandra Carrasco [facility] PROTHROMBIN TIME / INR 2023-07-08 19:15:00 Sammy sosa Tez [facility] ACTIVATED PARTIAL THRMPLAS ROSEMARY 2023-07-08 19:15:00 Tez Carrasco [facility] FIBRINOGEN 2023-07-08 19:15:00 Chandra Carrasco [facility] PROTHROMBIN TIME / INR 2023-07-08 19:15:00 Sammy sosa Tez [facility] ACTIVATED PARTIAL THRMPLAS ROSEMARY 2023-07-08 19:15:00 Luna Tez Ignacio [facility] FIBRINOGEN 2023-07-08 19:15:00 Chandra Carrasco Ignacio [facility] PHOSPHORUS 2023-07-08 19:13:00 Darling Nolen [facility] MAGNESIUM 2023-07-08 19:13:00 Darling Nolen [facility] BASIC METABOLIC PANEL (NA, K, CL, CO2, GLUCOSE, BUN, CREATININE, CA) 2023-07-08 19:13:00 Kerry Nolen [facility] CBC WITH DIFF 2023-07-08 19:13:00 Darling Nolen [facility] PHOSPHORUS 2023-07-08 19:13:00 [facility] 2023-07-08 19:13:00 Callum, Darling damon [facility] BASIC METABOLIC PANEL (NA, K, CL, CO2, GLUCOSE, BUN, CREATININE, CA) 2023-07-08 19:13:00 Kerry Nolenhleen [facility] CBC WITH DIFF 2023-07-08 19:13:00 [facility]-08 19:13:00 Callum[facility] 2023-07-08 19:13:00 Callum, Darling damon [facility] BASIC METABOLIC PANEL (NA, K, CL, CO2, GLUCOSE, BUN, CREATININE, CA) 2023-07-08 19:13:00 Kerry Nolen [facility] CBC WITH DIFF 2023-07-08 19:13:00 Callum, Darling damon [facility] ABG+COOX+NA+K+GLU+CA2+ 2023-07-08 18:33:00 Jt Alejandro [facility] ACUTE CARE ARTERIAL 2023-07-08 17:48:00 Mukesh [facility] ACUTE CARE ARTERIAL 2023-07-08 17:48:00 Mukesh [facility] ACUTE CARE ARTERIAL 2023-07-08 17:48:00 Mukesh [facility] ABG+COOX+NA+K+GLU+CA2+ 2023-07-08 17:39:00 Jt Alejandro [facility] ACUTE CARE ARTERIAL 2023-07-08 17:10:00 Mukesh [facility] ACUTE CARE ARTERIAL 2023-07-08 17:10:00 Mukesh [facility] ACUTE CARE ARTERIAL 2023-07-08 17:10:00 Mukesh [facility] ACUTE CARE ARTERIAL 2023-07-08 16:40:00 Mukesh [facility] ACUTE CARE ARTERIAL 2023-07-08 16:40:00 Mukesh [facility] ACUTE CARE ARTERIAL 2023-07-08 16:40:00 Mukesh [facility] ACUTE CARE ARTERIAL 2023-07-08 16:11:00 Mukesh [facility] ACUTE CARE ARTERIAL 2023-07-08 16:11:00 Mukesh [facility] ACUTE CARE ARTERIAL 2023-07-08 16:11:00 Mukesh [facility] ACUTE CARE ARTERIAL 2023-07-08 15:47:00 Mukesh [facility] ACUTE CARE ARTERIAL 2023-07-08 15:47:00 Mukesh [facility] ACUTE CARE ARTERIAL 2023-07-08 15:47:00 Mukesh [facility] ACUTE CARE ARTERIAL 2023-07-08 15:14:00 Mukesh [facility] ACUTE CARE ARTERIAL 2023-07-08 15:14:00 Mukesh [facility] ACUTE CARE ARTERIAL 2023-07-08 15:14:00 Mukesh [facility] ACUTE CARE ARTERIAL 2023-07-08 13:15:00 Mukesh [facility] ACUTE CARE ARTERIAL 2023-07-08 13:15:00 Mukesh [facility] ACUTE CARE ARTERIAL 2023-07-08 13:15:00 Mukesh [facility] CORONARY ARTERY BYPASS GRAFT 2023-07-08 11:39:00 LickJt [facility] ENDOSCOPIC VEIN HARVEST 2023-07-08 11:39:00 LicColt rachel [facility] CORONARY ARTERY BYPASS GRAFT 2023-07-08 11:39:00 LickJt [facility] ENDOSCOPIC VEIN HARVEST 2023-07-08 11:39:00 LicColt rachel [facility] MAGNESIUM 2023-07-08 10:37:00 [facility] PANEL (NA, K, CL, CO2, GLUCOSE, BUN, CREATININE, CA) 2023-07-08 10:37:00 [facility] 2023-07-08 10:37:00 Chandra Kinney [facility] MAGNESIUM 2023-07-08 10:37:00 Chandra Kinney [facility] BASIC METABOLIC PANEL (NA, K, CL, CO2, GLUCOSE, BUN, CREATININE, CA) 2023-07-08 10:37:00 [facility] 2023-07-08 10:37:00 Chandra Kinney [facility] MAGNESIUM 2023-07-08 10:37:00 Chandra Kinney [facility] BASIC METABOLIC PANEL (NA, K, CL, CO2, GLUCOSE, BUN, CREATININE, CA) 2023-07-08 10:37:00 Елена Kinney [facility] CBC WITH DIFF 2023-07-08 10:37:00 Chadnra Kinney [facility] MAGNESIUM 2023-07-07 22:58:00 Chandra Kinney [facility] ACTIVATED PARTIAL THRMPLAS ROSEMARY 2023-07-07 22:58:00 Mukesh [facility] HB ABO GROUPING 2023-07-07 22:58:00 Wayne Sotomayor [facility] MAGNESIUM 2023-07-07 22:58:00 Chandra Kinney [facility] ACTIVATED PARTIAL THRMPLAS ROSEMARY 2023-07-07 22:58:00 Mukesh [facility] HB ABO GROUPING 2023-07-07 22:58:00 Bran Wayne [facility] MAGNESIUM 2023-07-07 22:58:00 Chandra Kinney [facility] ACTIVATED PARTIAL THRMPLAS ROSEMARY 2023-07-07 22:58:00 Venita Mayorga [facility] HB ABO GROUPING 2023-07-07 22:58:00 Bran Wayne [facility] XR CHEST 2 VW 2023-07-07 13:58:00 Elder [facility] XR CHEST 2 2023-07-07 13:58:00 Elder, [facility] XR CHEST 2 2023-07-07 13:58:00 Elder, [facility] XR CHEST 2 2023-07-07 13:58:00 Elder, [facility] MAGNESIUM 2023-07-07 10:37:00 [facility] BASIC METABOLIC PANEL (NA, K, CL, CO2, GLUCOSE, BUN, CREATININE, CA) 2023-07-07 10:37:00 [facility] 2023-07-07 10:37:00 [facility] ACTIVATED PARTIAL THRMPLAS ROSEMARY 2023-07-07 10:37:00 Jelani [facility] MAGNESIUM 2023-07-07 10:37:00 [facility] BASIC METABOLIC PANEL (NA, K, CL, CO2, GLUCOSE, BUN, CREATININE, CA) 2023-07-07 10:37:00 [facility] WITH DIFF 2023-07-07 10:37:00 [facility] ACTIVATED PARTIAL THRMPLAS ROSEMARY 2023-07-07 10:37:00 Jelani [facility] MAGNESIUM 2023-07-07 10:37:00 [facility] BASIC METABOLIC PANEL (NA, K, CL, CO2, GLUCOSE, BUN, CREATININE, CA) 2023-07-07 10:37:00 [facility] CBC WITH DIFF 2023-07-07 10:37:00 [facility] ACTIVATED PARTIAL THRMPLAS ROSEMARY 2023-07-07 10:37:00 Jelani [facility] MAGNESIUM 2023-07-07 10:37:00 [facility] BASIC METABOLIC PANEL (NA, K, CL, CO2, GLUCOSE, BUN, CREATININE, CA) 2023-07-07 10:37:00 [facility] CBC WITH DIFF 2023-07-07 10:37:[address] [facility] ACTIVATED PARTIAL THRMPLAS ROSEMARY 2023-07-07 10:37:00 Palomares, [facility] ACTIVATED PARTIAL THRMPLAS ROSEMARY 2023-07-07 05:01:00 Palomares, [facility] ACTIVATED PARTIAL THRMPLAS ROSEMARY 2023-07-07 05:01:00 Palomares, [facility] ACTIVATED PARTIAL THRMPLAS ROSEMARY 2023-07-07 05:01:00 Palomares, [facility] ACTIVATED PARTIAL THRMPLAS ROSEMARY 2023-07-07 05:01:00 Palomares, [facility] CAROTID DUPLEX BILATERAL - BY VASCULAR LAB 2023-07-06 18:25:00 Елена Kinney [facility] CAROTID DUPLEX BILATERAL - BY VASCULAR LAB 2023-07-06 18:25:00 Елена Kineny [facility] CAROTID DUPLEX BILATERAL - BY VASCULAR LAB 2023-07-06 18:25:00 Елена Kinney [facility] CAROTID DUPLEX BILATERAL - BY VASCULAR LAB 2023-07-06 18:25:00 Елена Kinney [facility] ACTIVATED PARTIAL THRMPLAS ROSEMARY 2023-07-06 16:55:00 Palomares, [facility] ACTIVATED PARTIAL THRMPLAS ROSEMARY 2023-07-06 16:55:00 Palomares, [facility] ACTIVATED PARTIAL THRMPLAS ROSEMARY 2023-07-06 16:55:00 Palomares, [facility] ACTIVATED PARTIAL THRMPLAS ROSEMARY 2023-07-06 16:55:00 Palomares, [facility] MAGNESIUM 2023-07-06 06:18:00 [facility] BASIC METABOLIC PANEL (NA, K, CL, CO2, GLUCOSE, BUN, CREATININE, CA) 2023-07-06 06:18:00 Sali [facility] CBC WITH DIFF 2023-07-06 06:18:00 [facility] ACTIVATED PARTIAL THRMPLAS ROSEMARY 2023-07-06 06:18:00 Sanket Blair [facility] MAGNESIUM 2023-07-06 06:18:00 [facility] BASIC METABOLIC PANEL (NA, K, CL, CO2, GLUCOSE, BUN, CREATININE, CA) 2023-07-06 06:18:00 Sali [facility] CBC WITH DIFF 2023-07-06 06:18:00 [facility] ACTIVATED PARTIAL THRMPLAS ROSEMARY 2023-07-06 06:18:00 Sanket Blair [facility] MAGNESIUM 2023-07-06 06:18:00 [facility] BASIC METABOLIC PANEL (NA, K, CL, CO2, GLUCOSE, BUN, CREATININE, CA) 2023-07-06 06:18:00 [facility] CBC WITH DIFF 2023-07-06 06:18:00 [facility] ACTIVATED PARTIAL THRMPLAS ROSEMARY 2023-07-06 06:18:00 Sanket Blair [facility] MAGNESIUM 2023-07-06 06:18:00 [facility] BASIC METABOLIC PANEL (NA, K, CL, CO2, GLUCOSE, BUN, CREATININE, CA) 2023-07-06 06:18:00 [facility] CBC WITH DIFF 2023-07-06 06:18:00 [facility] ACTIVATED PARTIAL THRMPLAS ROSEMARY 2023-07-06 06:18:00 Sanket Blair [facility] ACTIVATED PARTIAL THRMPLAS ROSEMARY 2023-07-05 17:59:00 Sanket Blair [facility] ACTIVATED PARTIAL THRMPLAS ROSEMARY 2023-07-05 17:59:00 Sanket Blair [facility] ACTIVATED PARTIAL THRMPLAS ROSEMARY 2023-07-05 17:59:00 Sanket Blair [facility] ACTIVATED PARTIAL THRMPLAS ROSEMARY 2023-07-05 17:59:00 Sanket Blair [facility] MAGNESIUM 2023-07-05 11:38:00 [facility] BASIC METABOLIC PANEL (NA, K, CL, CO2, GLUCOSE, BUN, CREATININE, CA) 2023-07-05 11:38:00 [facility] CBC WITH DIFF 2023-07-05 11:38:00 [facility] MAGNESIUM 2023-07-05 11:38:00 [facility] BASIC METABOLIC PANEL (NA, K, CL, CO2, GLUCOSE, BUN, CREATININE, CA) 2023-07-05 11:38:00 [facility] CBC WITH DIFF 2023-07-05 11:38:00 [facility] MAGNESIUM 2023-07-05 11:38:00 [facility] BASIC METABOLIC PANEL (NA, K, CL, CO2, GLUCOSE, BUN, CREATININE, CA) 2023-07-05 11:38:00 [facility] CBC WITH DIFF 2023-07-05 11:38:00 [facility] MAGNESIUM 2023-07-05 11:38:00 [facility] BASIC METABOLIC PANEL (NA, K, CL, CO2, GLUCOSE, BUN, CREATININE, CA) 2023-07-05 11:38:00 [facility] CBC WITH DIFF 2023-07-05 11:38:00 [facility] ACTIVATED PARTIAL THRMPLAS ROSEMARY 2023-07-05 08:16:00 Sanket Blair [facility] ACTIVATED PARTIAL THRMPLAS ROSEMARY 2023-07-05 08:16:00 Sanket Blair [facility] ACTIVATED PARTIAL THRMPLAS ROSEMARY 2023-07-05 08:16:00 Sanket Blair [facility] ACTIVATED PARTIAL THRMPLAS ROSEMARY 2023-07-05 08:16:00 Sanket Blair [facility] CARDIAC CATHETERIZATION 2023-07-04 22:36:00 Albaeni, A [facility] CARDIAC CATHETERIZATION 2023-07-04 22:36:00 Albaeni, A [facility] CARDIAC CATHETERIZATION 2023-07-04 22:36:00 Albaeni, A [facility] CARDIAC CATHETERIZATION 2023-07-04 22:36:00 Albaeni, A [facility] CARDIAC CATHETERIZATION 2023-07-04 22:36:00 Albaeni, A [facility] CARDIAC CATHETERIZATION 2023-07-04 22:36:00 Albaeni, A [facility] CARDIAC CATHETERIZATION 2023-07-04 22:36:00 Albaeni, A [facility] CARDIAC CATHETERIZATION 2023-07-04 22:36:00 Albaeni, A [facility] CARDIAC CATHETERIZATION 2023-07-04 22:36:00 Albaeni, A [facility] CARDIAC CATHETERIZATION 2023-07-04 22:36:00 Albaeni, A [facility] CARDIAC CATHETERIZATION 2023-07-04 22:36:00 Albaeni, A [facility] CARDIAC CATHETERIZATION 2023-07-04 22:36:00 Albaeni, A [facility] MAGNESIUM 2023-07-04 16:24:[address] [facility] MET[facility]OLIC PANEL (NA, K, CL, CO2, GLUCOSE, BUN, CREATININE, CA) 2023-07-04 16:24:00 [facility] 2023-07-04 16:24:00 [facility] BASIC METABOLIC PANEL (NA, K, CL, CO2, GLUCOSE, BUN, CREATININE, CA) 2023-07-04 16:24:00 [facility] MAGNESIUM 2023-07-04 16:24:00 [facility] BASIC METABOLIC PANEL (NA, K, CL, CO2, GLUCOSE, BUN, CREATININE, CA) 2023-07-04 16:24:00 [facility] MAGNESIUM 2023-07-04 16:24:00 Salim, Hamza [facility] BASIC METABOLIC PANEL (NA, K, CL, CO2, GLUCOSE, BUN, CREATININE, CA) 2023-07-04 16:24:00 Dell [facility] ACTIVATED PARTIAL THRMPLAS ROSEMARY 2023-07-04 15:46:00 Palomares, [facility] ACTIVATED PARTIAL THRMPLAS ROSEMARY 2023-07-04 15:46:00 Palomares, [facility] ACTIVATED PARTIAL THRMPLAS ROSEMARY 2023-07-04 15:46:00 Palomares, [facility] ACTIVATED PARTIAL THRMPLAS ROSEMARY 2023-07-04 15:46:00 Palomares, [facility] MAGNESIUM 2023-07-04 11:34:00 [facility] BASIC METABOLIC PANEL (NA, K, CL, CO2, GLUCOSE, BUN, CREATININE, CA) 2023-07-04 11:34:00 Capo Baker [facility] CBC WITH DIFF 2023-07-04 11:34:00 Capo Baker [facility] MAGNESIUM 2023-07-04 11:34:00 [facility] BASIC METABOLIC PANEL (NA, K, CL, CO2, GLUCOSE, BUN, CREATININE, CA) 2023-07-04 11:34:00 Capo Baker [facility] CBC WITH DIFF 2023-07-04 11:34:00 Capo Baker [facility] MAGNESIUM 2023-07-04 11:34:00 SidCap[facility] BASIC METABOLIC PANEL (NA, K, CL, CO2, GLUCOSE, BUN, CREATININE, CA) 2023-07-04 11:34:00 SidCapo rose [facility] CBC WITH DIFF 2023-07-04 11:34:00 Capo Baker [facility] MAGNESIUM 2023-07-04 11:34:00 SidiqCapo [facility] BASIC METABOLIC PANEL (NA, K, CL, CO2, GLUCOSE, BUN, CREATININE, CA) 2023-07-04 11:34:00 Capo Baker [facility] CBC WITH DIFF 2023-07-04 11:34:00 Capo Baker [facility] ACTIVATED PARTIAL THRMPLAS ROSEMARY 2023-07-04 03:21:00 Mukesh [facility] ACTIVATED PARTIAL THRMPLAS ROSEMARY 2023-07-04 03:21:00 Mukesh [facility] ACTIVATED PARTIAL THRMPLAS ROSEMARY 2023-07-04 03:21:00 Albyasmani [facility] ACTIVATED PARTIAL THRMPLAS ROSEMARY 2023-07-04 03:21:00 Mukesh [facility] MAGNESIUM 2023-07-03 19:56:00 Sidiq, [facility] MAGNESIUM 2023-07-03 19:56:00 Sidiq, [facility] MAGNESIUM 2023-07-03 19:56:00 Sidiq, [facility] MAGNESIUM 2023-07-03 19:56:00 Sidiq, [facility] ACTIVATED PARTIAL THRMPLAS ROSEMARY 2023-07-03 16:57:00 Palomares, [facility] ACTIVATED PARTIAL THRMPLAS ROSEMARY 2023-07-03 16:57:00 Palomares, [facility] ACTIVATED PARTIAL THRMPLAS ROSEMARY 2023-07-03 16:57:00 Palomares, [facility] ACTIVATED PARTIAL THRMPLAS ROSEMARY 2023-07-03 16:57:00 Palomares, [facility] TRANSTHORACIC ECHO (TTE) COMPLETE W/ CONTRAST 2023-07-03 16:56:57 Palomares, [facility] TRANSTHORACIC ECHO (TTE) COMPLETE W/ CONTRAST 2023-07-03 16:56:57 Palomares, [facility] TRANSTHORACIC ECHO (TTE) COMPLETE W/ CONTRAST 2023-07-03 16:56:57 Palomares, [facility] TRANSTHORACIC ECHO (TTE) COMPLETE W/ CONTRAST 2023-07-03 16:56:57 Palomares, [facility] HB ECG ROUTINE & RHYTHM STRIP 2023-07-03 14:35:42 Sidiq, [facility] HB ECG ROUTINE & RHYTHM STRIP 2023-07-03 14:35:42 Sidmilton [facility] HB ECG ROUTINE & RHYTHM STRIP 2023-07-03 14:35:42 Sidmilton [facility] HB ECG ROUTINE & RHYTHM STRIP 2023-07-03 14:35:42 Samuel [facility] HB ECG ROUTINE & RHYTHM STRIP 2023-07-03 12:51:42 Palomares [facility] HB ECG ROUTINE & RHYTHM STRIP 2023-07-03 12:51:42 Palomares, [facility] HB ECG ROUTINE & RHYTHM STRIP 2023-07-03 12:51:42 Palomares [facility] HB ECG ROUTINE & RHYTHM STRIP 2023-07-03 12:51:42 Palomares, [facility] TACROLIMUS, LEVEL 2023-07-03 12:32:00 PalomaresPadmaja andrade [facility] TACROLIMUS, LEVEL 2023-07-03 12:32:00 PalomaresPadmaja [facility] TACROLIMUS, LEVEL 2023-07-03 12:32:00 PalomaresPadmaja [facility] TACROLIMUS, LEVEL 2023-07-03 12:32:00 Padmaja Palomares [facility] LACTIC ACID WHOLE BLOOD 2023-07-03 09:37:00 [facility] 2023-07-03 09:37:00 [facility]LOOD 2023-07-03 09:37:00 [facility] WHOLE [facility]LOOD 2023-07-03 09:37:00 Quang Palomares [facility] ACTIVATED PARTIAL THRMPLAS ROSEMARY 2023-07-03 09:19:00 Sanket Blair [facility] ACTIVATED PARTIAL THRMPLAS ROSEMARY 2023-07-03 09:19:00 Sanket Blair [facility] ACTIVATED PARTIAL THRMPLAS ROSEMARY 2023-07-03 09:19:00 Sanket Blair [facility] ACTIVATED PARTIAL THRMPLAS ROSEMARY 2023-07-03 09:19:00 Sanket Blair [facility] PHOSPHORUS 2023-07-03 06:42:00 Palomares, [facility] MAGNESIUM 2023-07-03 06:42:00 Palomares, [facility] TROPONIN I 2023-07-03 06:42:00 Palomares, [facility] HEPATIC FUNCTION PANEL ([id number]) (ALB,T.PRO,BILI T,BU/BC,ALT,AST,ALK PHOS) 2023-07-03 06:42:00 Palomares, [facility] BASIC METABOLIC PANEL (NA, K, CL, CO2, GLUCOSE, BUN, CREATININE, CA) 2023-07-03 06:42:00 Palomares, [facility] LIPID PANEL ([id number])(TOTAL CHOLESTEROL, TRIGLYCERIDES, HDL) 2023-07-03 06:42:00 Palomares, [facility] IRON PANEL 2023-07-03 06:42:00 Palomares, [facility] CBC WITH DIFF 2023-07-03 06:42:00 Palomares [facility] EXTRA TUBE SST 2023-07-03 06:42:00 [facility] 2023-07-03 06:42:00 Palomares, [facility] MAGNESIUM 2023-07-03 06:42:00 Palomares [facility] TROPONIN I 2023-07-03 06:42:00 Palomares, [facility] HEPATIC FUNCTION PANEL ([id number]) (ALB,T.PRO,BILI T,BU/BC,ALT,AST,ALK PHOS) 2023-07-03 06:42:00 Palomares, [facility] BASIC METABOLIC PANEL (NA, K, CL, CO2, GLUCOSE, BUN, CREATININE, CA) 2023-07-03 06:42:00 Palomares, [facility] LIPID PANEL ([id number])(TOTAL CHOLESTEROL, TRIGLYCERIDES, HDL) 2023-07-03 06:42:00 Palomares, [facility] IRON PANEL 2023-07-03 06:42:00 Palomares, [facility] CBC WITH DIFF 2023-07-03 06:42:00 Jelani [facility] EXTRA TUBE SST 2023-07-03 06:42:00 Mukesh [facility] PHOSPHORUS 2023-07-03 06:42:00 Palomares, [facility] MAGNESIUM 2023-07-03 06:42:00 Palomares [facility] TROPONIN I 2023-07-03 06:42:00 Palomares [facility] HEPATIC FUNCTION PANEL ([id number]) (ALB,T.PRO,BILI T,BU/BC,ALT,AST,ALK PHOS) 2023-07-03 06:42:00 Palomares, [facility] BASIC METABOLIC PANEL (NA, K, CL, CO2, GLUCOSE, BUN, CREATININE, CA) 2023-07-03 06:42:00 Palomares, [facility] LIPID PANEL ([id number])(TOTAL CHOLESTEROL, TRIGLYCERIDES, HDL) 2023-07-03 06:42:00 Palomares, [facility] IRON PANEL 2023-07-03 06:42:00 Palomares, [facility] CBC WITH DIFF 2023-07-03 06:42:00 Palomares, [facility] EXTRA TUBE SST 2023-07-03 06:42:00 [facility] 2023-07-03 06:42:00 Palomares, [facility] MAGNESIUM 2023-07-03 06:42:00 Palomares, [facility] TROPONIN I 2023-07-03 06:42:00 Palomares, [facility] HEPATIC FUNCTION PANEL ([id number]) (ALB,T.PRO,BILI T,BU/BC,ALT,AST,ALK PHOS) 2023-07-03 06:42:00 Palomares, [facility] BASIC METABOLIC PANEL (NA, K, CL, CO2, GLUCOSE, BUN, CREATININE, CA) 2023-07-03 06:42:00 Palomares, [facility] LIPID PANEL ([id number])(TOTAL CHOLESTEROL, TRIGLYCERIDES, HDL) 2023-07-03 06:42:00 Jelani [facility] IRON PANEL 2023-07-03 06:42:00 Padmaja Palomares [facility] CBC WITH DIFF 2023-07-03 06:42:00 Padmaja Palomares [facility] EXTRA TUBE SST 2023-07-03 06:42:00 Venita Mayorga [facility] HB ECG ROUTINE & RHYTHM STRIP 2023-07-03 06:20:19 Jelani [facility] HB ECG ROUTINE & RHYTHM STRIP 2023-07-03 06:20:19 Jelani [facility] HB ECG ROUTINE & RHYTHM STRIP 2023-07-03 06:20:19 Jelani [facility] HB ECG ROUTINE & RHYTHM STRIP 2023-07-03 06:20:19 Jelani [facility] PROTHROMBIN TIME / INR 2023-07-03 02:49:00 Edna Blair [facility] ACTIVATED PARTIAL THRMPLAS ROSEMARY 2023-07-03 02:49:00 Sanket Blair [facility] PROTHROMBIN TIME / INR 2023-07-03 02:49:00 Edna Blair [facility] ACTIVATED PARTIAL THRMPLAS ROSEMARY 2023-07-03 02:49:00 Sanket Blair [facility] PROTHROMBIN TIME / INR 2023-07-03 02:49:00 Edna Blair [facility] ACTIVATED PARTIAL THRMPLAS ROSEMARY 2023-07-03 02:49:00 Sanket Blair [facility] PROTHROMBIN TIME / INR 2023-07-03 02:49:00 Edna Blair [facility] ACTIVATED PARTIAL THRMPLAS ROSEMARY 2023-07-03 02:49:00 Sanket Blair [facility] XR CHEST 1 VW 2023-07-03 02:09:38 Sanket [facility] XR CHEST 1 2023-07-03 02:09:38 Sanket [facility] XR CHEST 1 VW 2023-07-03 02:09:38 Sanket [facility] XR CHEST 1 2023-07-03 02:09:38 Sanket [facility] TROPONIN I 2023-07-03 01:55:00 Sanket [facility] THYROID STIMULATING HORMONE 2023-07-03 01:55:00 Palomares [facility] COMP. METABOLIC PANEL (76226) 2023-07-03 01:55:00 Sanket Blair [facility] CBC WITH DIFF 2023-07-03 01:55:00 Sanket [facility] GLYCOSYLATED HEMOGLOBIN (A1C) 2023-07-03 01:55:00 Palomares [facility] N-TERMINAL PRO-BNP 2023-07-03 01:55:00 Sanket Blair [facility] TROPONIN I 2023-07-03 01:55:00 Sanket [facility] THYROID STIMULATING HORMONE 2023-07-03 01:55:00 Palomares, [facility] COMP. METABOLIC PANEL ([id number]) 2023-07-03 01:55:00 Sanket Blair [facility] CBC WITH DIFF 2023-07-03 01:55:00 Sanket [facility] GLYCOSYLATED HEMOGLOBIN (A1C) 2023-07-03 01:55:00 Palomares, [facility] N-TERMINAL PRO-BNP 2023-07-03 01:55:00 Sanket Blair [facility] TROPONIN I 2023-07-03 01:55:00 Sanket [facility] THYROID STIMULATING HORMONE 2023-07-03 01:55:00 Palomares, [facility] COMP. METABOLIC PANEL ([id number]) 2023-07-03 01:55:00 Sanket Blair [facility] CBC WITH DIFF 2023-07-03 01:55:00 Sanket [facility] GLYCOSYLATED HEMOGLOBIN (A1C) 2023-07-03 01:55:00 Palomares, [facility] N-TERMINAL PRO-BNP 2023-07-03 01:55:00 Sanket Blair [facility] TROPONIN I 2023-07-03 01:55:00 Sanket [facility] THYROID STIMULATING HORMONE 2023-07-03 01:55:00 Jelani [facility] COMP. METABOLIC PANEL ([id number]) 2023-07-03 01:55:00 Sanket Blair [facility] CBC WITH DIFF 2023-07-03 01:55:00 Sanket [facility] GLYCOSYLATED HEMOGLOBIN (A1C) 2023-07-03 01:55:00 Jelani [facility] N-TERMINAL PRO-BNP 2023-07-03 01:55:00 Sanket Blair [facility] HB ECG ROUTINE & RHYTHM STRIP 2023-07-03 01:50:33 Sanket Blair [facility] HB ECG ROUTINE & RHYTHM STRIP 2023-07-03 01:50:33 Sanket Blair [facility] HB ECG ROUTINE & RHYTHM STRIP 2023-07-03 01:50:33 Sanket Blair [facility] HB ECG ROUTINE & RHYTHM STRIP 2023-07-03 01:50:33 Sanket Blair [facility] CONSENT/REFUSAL FOR DIAGNOSIS AND TREATMENT 2023-07-03 01:45:54 Doctor Unassigned, [place] [facility] CONSENT/REFUSAL FOR DIAGNOSIS AND TREATMENT 2023-07-03 01:45:54 Doctor Unassigned, [place] [facility] CONSENT/REFUSAL FOR DIAGNOSIS AND TREATMENT 2023-07-03 01:45:54 Doctor Unassigned, [place] [facility] CONSENT/REFUSAL FOR DIAGNOSIS AND TREATMENT 2023-07-03 01:45:54 Doctor Unassigned, [place] [facility] CRITICAL CARE 2023-07-03 01:45:00 Sanket [facility] CRITICAL CARE 2023-07-03 01:45:00 Sanket [facility] CRITICAL CARE 2023-07-03 01:45:00 Sanket Blair [facility] CRITICAL CARE 2023-07-03 01:45:00 Sanket [facility] HOSPITAL ADMISSION 2023-07-02 06:01:00 Doctor Un assigned, [place] [facility] HOSPITAL ADMISSION 2023-07-02 06:01:00 Doctor Un assigned, [place] [facility] ADMISSION 2023-07-02 06:01:00 Doctor Un assigned, [place] [facility] HOSPITAL ADMISSION 2023-07-02 06:01:00 Doctor Un assigned, [place] [facility] OCT, RETINA - OU - BOTH EYES 2023-06-20 17:41:01 Diandra Tillman [facility] PANRETINAL PHOTOCOAGULATION - OD - RIGHT EYE 2023-06-20 16:40:57 Diandra Tillman [facility] DISCLOSURE AND CONSENT, MEDICAL AND SURGICAL PROCEDURES 2023-06-20 06:01:00 Doctor Unassigned, [place] [facility] INSURANCE CORRESPONDENCE 2023-06-12 06:01:00 King tor Unassigned, [place] [facility] OCT, RETINA - OU - BOTH EYES 2023-05-26 19:26:59 Diandra Tillman [facility] FLUORESCEIN ANGIOGRAPHY - OU - BOTH EYES 2023-05-26 19:26:50 Diandra Tillman [facility] PHOSPHORUS 2023-05-23 17:47:00 Shanae [facility] MAGNESIUM 2023-05-23 17:47:00 Shanae [facility] BASIC METABOLIC PANEL (NA, K, CL, CO2, GLUCOSE, BUN, CREATININE, CA) 2023-05-23 17:47:00 Shanae [facility] CBC WITH DIFF 2023-05-23 17:47:00 Shanae [facility] URINALYSIS 2023-05-23 17:47:00 Shanae [facility] PROTEIN CREAT RATIO URINE RANDOM 2023-05-23 17:47:00 Shanae [facility] ASSIGNMENT OF BENEFITS 2023-05-23 15:08:56 Docto r Unassigned, [place] [facility] CONSENT/REFUSAL FOR DIAGNOSIS AND TREATMENT 2023-05-23 15:08:38 Doctor Unassigned, [place] [facility] INTRAVITREAL INJECTION, PHARMACOLOGIC AGENT - OD - RIGHT EYE 2023-05-02 16:46:19 Diandra Tillman [facility] OCT, RETINA - OU - BOTH EYES 2023-05-02 16:42:43 Diandra Tillman [facility] DISCLOSURE AND CONSENT, MEDICAL AND SURGICAL PROCEDURES 2023-05-02 06:01:00 Doctor Unassigned, [place] [facility] INTRAVITREAL INJECTION, PHARMACOLOGIC AGENT - OD - RIGHT EYE 2023-03-28 17:27:30 Diandra Tillman [facility] OCT, RETINA - OU - BOTH EYES 2023-03-28 17:24:22 Diandra Tillman [facility] DISCLOSURE AND CONSENT, MEDICAL AND SURGICAL PROCEDURES 2023-03-28 06:01:00 Doctor Unassigned, [place] [facility] INTRAVITREAL INJECTION, PHARMACOLOGIC AGENT - OD - RIGHT EYE 2023-02-24 16:26:54 [facility]INA - OU - BOTH EYES 2023-02-24 16:21:02 Diandra Tillman [facility] DISCLOSURE AND CONSENT, MEDICAL AND SURGICAL PROCEDURES 2023-02-24 05:01:00 Doctor Unassigned, [place] [facility] POCT MOLECULAR STREP 2023-02-19 15:09:00 Ferdinand Garcia [facility] FUNDUS PHOTOS - OU - BOTH EYES 2023-01-30 18:51:09 [facility] OCT, RETINA - OU - BOTH EYES 2023-01-30 18:49:03 [facility] EXTERNAL PROVIDER RECORDS 2023-01-09 05:01:00 Do ctor Unassigned, [place] [facility] OCT, RETINA - OU - BOTH EYES 2023-01-06 16:42:22 Van Brown [facility] NOTICE OF PRIVACY PRACTICES 2022-10-28 19:20:29 Doctor Unassigned, [place] [facility] CONSENT/REFUSAL FOR DIAGNOSIS AND TREATMENT 2022-10-28 19:20:09 Doctor Unassigned, [place] [facility] ASSIGNMENT OF BENEFITS 2022-10-28 19:19:51 Docto r Unassigned, [place] [facility] PNEUMOCOCCAL 20 CONJUGATE (PREVNAR 20) VACCINE 2022-10-21 15:30:33 Abner Rivera [facility] EXTERNAL PROVIDER RECORDS 2022-10-18 05:01:00 Do ctor Unassigned, [place] [facility] PHOSPHORUS 2022-09-24 18:43:00 Behzad Jolly [facility] MAGNESIUM 2022-09-24 18:43:00 Shanae [facility] BASIC METABOLIC PANEL (NA, K, CL, CO2, GLUCOSE, BUN, CREATININE, CA) 2022-09-24 18:43:00 Shanae [facility] TACROLIMUS, LEVEL 2022-09-24 18:43:00 Shanae [facility] CBC WITH DIFF 2022-09-24 18:43:00 Shanae Behzad [facility] BK VIRUS QUANT 2022-09-24 18:43:00 Naomie Mcclendon [facility] PATIENT FINANCIAL POLICY 2022-07-17 19:23:55 Doctor Unassigned, [place] [facility] EXTERNAL DD-CFDNA 2022-07-17 05:00:00 Pro Coburn [facility] PHOSPHORUS 2022-07-12 18:27:00 Shanae [facility] MAGNESIUM 2022-07-12 18:27:00 Shanae [facility] BASIC METABOLIC PANEL (NA, K, CL, CO2, GLUCOSE, BUN, CREATININE, CA) 2022-07-12 18:27:00 Shanae Behzad [facility] TACROLIMUS, LEVEL 2022-07-12 18:27:00 Behzad [facility] CBC WITH DIFF 2022-07-12 18:27:00 Shanae [facility] URINALYSIS 2022-07-12 18:27:00 Shanae [facility] PROTEIN CREAT RATIO URINE RANDOM 2022-07-12 18:27:00 Shanae [facility] PHOSPHORUS 2022-05-30 15:16:00 Shanae Behzad [facility] MAGNESIUM 2022-05-30 15:16:00 Shanae [facility] BASIC METABOLIC PANEL (NA, K, CL, CO2, GLUCOSE, BUN, CREATININE, CA) 2022-05-30 15:16:00 Shanae [facility] CBC WITH DIFF 2022-05-30 15:16:00 Shanae [facility] URINALYSIS 2022-05-30 15:16:00 Shanae [facility] ASSIGNMENT OF BENEFITS 2022-05-07 15:21:38 Docto r Unassigned, [place] [facility] CT ABDOMEN PELVIS W WO CONTRAST 2022-04-15 15:44:59 Naomie Doty [facility] CONSENT/REFUSAL FOR DIAGNOSIS AND TREATMENT 2022-04-15 14:49:13 Doctor Unassigned, [place] [facility] ASSIGNMENT OF BENEFITS 2022-04-15 14:49:01 Docto r Unassigned, [place] [facility] URINALYSIS 2022-04-10 16:14:00 Shanae [facility] URINE CULTURE 2022-04-10 16:14:00 Naomie Mcclendon [facility] PROTEIN CREAT RATIO URINE RANDOM 2022-04-10 16:14:00 Shanae [facility] PHOSPHORUS 2022-04-10 16:01:00 Shanae [facility] MAGNESIUM 2022-04-10 16:01:00 Shanae [facility] BASIC METABOLIC PANEL (NA, K, CL, CO2, GLUCOSE, BUN, CREATININE, CA) 2022-04-10 16:01:00 Shanae [facility] TACROLIMUS, LEVEL 2022-04-10 16:01:00 Shanae [facility] CBC WITH DIFF 2022-04-10 16:01[facility]ANT 2022-04-10 16:01:00 Naomie Mcclendon [facility] EXTERNAL DD-CFDNA 2022-04-10 06:00:00 Pro Coburn [facility] FLU VACC(),65+YR,0.5 ML,IM,ADJUVANTED,QUAD(FLUA D) 2022-04-01 17:57:26 Abner Rivera [facility] POCT GRP A STREP (MOLECULAR) 2022-03-12 22:00:00 [facility] DERMATOPATHOLOGY TISSUE EXAM 2022-02-26 00:00:00 Kurtis Chase [facility] POCT HEMOGLOBIN A1C TEST 2022-02-04 17:03:00 Junior Garcia [facility] SARS-COV-2 COVID-19 VACCINE 18 YRS+, BIVALENT 0.5ML, IM (MODERNA BOOSTER) 2022-02-04 16:37:53 Doctor Unassigned, [place] [facility] URINALYSIS 2022-01-24 19:12:00 [facility]FF 2022-01-24 19:01:00 Shanae [facility] PHOSPHORUS 2022-01-24 17:20:00 Shanae [facility] MAGNESIUM 2022-01-24 17:20:00 Shanae [facility] COMP. METABOLIC PANEL ([id number]) 2022-01-24 17:20:00 Abner Rivera [facility] HEPATITIS C VIRUS (HCV) BY QUANTITATIVE NAAT 2022-01-24 17:20:00 Abner Rivera [facility] TACROLIMUS, LEVEL 2022-01-24 17:19:00 [facility] PROTEIN CREAT RATIO URINE RANDOM 2022-01-24 17:15:00 Shanae [facility] TOTAL PROTEIN, URINE RANDOM 2022-01-24 17:15:00 Shanae [facility] MEDICATION CORRESPONDENCE 2022-01-14 05:01:00 Do ctor Unassigned, [place] [facility] Basic Metabolic Panel Ghada Pedroza Epic Magnesium Level [facility] Epic Phosphorus Level [facility] Complete Blood Count w/Diff and Platelet [facility] Blood culture, peripheral #2 [facility] Plan of Care Planned Activity Planned Date Details Comments Source Encounters Start Date/Time End Date/Time Encounter Type Admission Type Attending Clinicians Care Facility Care Department Encounter ID Source 2024-11-09 11:07:00 Inpatient Emergency SARA LIVE [facility] Cardiology [id number] [facility] 2021-02-26 05:42:45 Outpatient R JASMYNE ROPER [facility] [id number] [facility] 2025-02-28 10:00:00 2025-02-28 10:00:00 Outpatient R ASHWIN WEIR [facility] [id number] [facility] 2025-02-02 08:40:00 2025-02-02 08:40:00 Outpatient R ABNER RIVERA [facility] [id number] [facility] 2024-12-09 00:00:00 2024-12-09 16:30:05 Case Management [facility] 1.0.114 350.1.13.10 4.2.7.2.686 [id number] [facility] 2024-12-07 13:30:00 2024-12-07 13:30:00 Office Visit R PARMINDER POLLOCK [facility] 1.0.114 350.1.13.10 4.2.7.2.686 [id number] [facility] 2024-12-07 10:30:00 2024-12-07 11:00:00 Office Visit R Transplant, Kidney Surgery Parminder Pollock Transplant, Kidney [facility] 1.0.114 350.1.13.10 4.2.7.2.686 [id number] [facility] 2024-11-23 00:00:00 2024-11-24 07:52:38 Telephone Abner Rivera [facility] 1.114 350.1.13.10 4.2.7.2.686 [id number] [facility] 2024-11-23 00:00:00 2024-11-23 14:28:51 Telephone Parminder Rueda Hudson [facility] 1.114 350.1.13.10 4.2.7.2.686 [id number] [facility] 2024-11-23 09:20:00 2024-11-23 09:20:00 Outpatient TOMEKA TERRELL [facility] [id number] [facility] 2024-11-09 11:07:00 2024-11-19 17:14:00 Inpatient Emergency SARA LIVE [facility] Cardiology [id number] [facility] 2024-11-09 11:07:00 2024-11-19 17:14:00 Hospital Encounter Randolph Katz Alexander J Dhoble, Sara Sald[facility] 1. 350.1.13.70 8.2.7.2.686 [id number] [facility] 2024-11-17 00:00:00 2024-11-19 11:34:39 Telephone Transplant, Kidney Medicine Transplant, Kidney Medicine [facility] 1. 350.1.13.10 4.2.7.2.686 [id number] [facility] 2024-11-19 00:00:00 2024-11-19 08:35:42 Telephone Parminder Rueda Hudson [facility] 1.114 350.1.13.10 4.2.7.2.686 [id number] [facility] 2024-11-09 00:00:00 2024-11-09 10:55:13 Telephone Parminder Pollock [facility] 1.2840.114 350.1.13.10 4.2.7.2.686 [id number] [facility] 2024-11-08 08:15:00 2024-11-08 08:53:15 Windows Admin Visit [facility] 1.20.114 350.1.13.10 4.2.7.2.686 [id number] [facility] 2024-10-28 13:00:00 2024-10-28 13:00:00 Outpatient R [facility] [id number] [facility] 2024-10-27 00:00:00 2024-10-27 07:29:46 Behzad Larsen [facility] 1.20.114 350.1.13.10 4.2.7.2.686 [id number] [facility] 2024-10-21 00:00:00 2024-10-22 19:01:05 Telephone Mukesh Arce [facility] 1.0.114 350.1.13.10 4.2.7.2.686 [id number] [facility] 2024-10-21 13:00:00 2024-10-21 14:16:48 Office Visit R MUKESH ARCE AJAY [facility] 1.20.114 350.1.13.10 4.2.7.2.686 [id number] [facility] 2024-10-21 13:00:00 2024-10-21 13:00:00 Outpatient R [facility] [id number] [facility] 2024-10-20 00:00:00 2024-10-20 10:05:17 Case Management Parminder Rueda [facility] 1.2840.114 350.1.13.10 4.2.7.2.686 [id number] [facility] 2024-10-15 08:00:00 2024-10-15 08:31:29 Windows Admin Visit ABNER CARDONA [facility] 1..114 350.1.13.10 4.2.7.2.686 [id number] [facility] 2024-10-15 08:00:00 2024-10-15 08:00:00 Outpatient Matt [facility] [id number] [facility] 2024-10-02 00:00:00 2024-10-04 08:59:47 Refill Naomie Beck do [facility] 1.0.114 350.1.13.10 4.2.7.2.686 [id number] [facility] 2024-09-28 00:00:00 2024-09-28 10:50:08 [facility] 1.0.114 350.1.13.10 4.2.7.2.686 [id number] [facility] 2024-08-31 00:00:00 2024-08-31 09:19:44 Specialty Pharmacy Rakel Masterson Monique [facility] 1.840.114 350.1.13.10 4.2.7.2.686 [id number] [facility] 2024-08-30 09:30:00 2024-08-30 09:47:31 Outpatient ASHWIN ECHEVARRIA [facility] [id number] [facility] 2024-08-30 09:30:00 2024-08-30 09:47:31 Office Visit Ashwin Weir [facility] 1.2840.114 350.1.13.10 4.2.7.2.686 [id number] [facility] 2024-08-19 00:00:00 2024-08-19 09:55:55 Refill [facility] 1.2.840.114 350.1.13.10 4.2.7.2.686 [id number] [facility] 2024-08-17 00:00:00 2024-08-17 15:40:58 Letter (Out) Abner Rivera [facility] 1.2.840.114 350.1.13.10 4.2.7.2.686 [id number] [facility] 2024-08-03 16:00:00 2024-08-03 16:00:00 Outpatient R ABNER RIVERA [facility] [id number] [facility] 2024-08-03 16:00:00 2024-08-03 16:00:00 Windows Admin Visit 2, Adc Lab Abner Rivera 2, Adc Lab [facility] 1.2.840.114 350.1.13.10 4.2.7.2.686 [id number] [facility] 2024-08-03 14:40:00 2024-08-03 15:01:11 Office Visit [facility]ner [facility] 1.2.840.114 350.1.13.10 4.2.7.2.686 [id number] [facility] 2024-07-27 08:15:00 2024-07-27 08:15:00 Outpatient R [facility] [id number] [facility] 2024-07-27 08:15:00 2024-07-27 08:15:00 Outpatient R [facility] [id number] [facility] 2024-07-22 00:00:00 2024-07-22 10:01:27 Specialty Pharmacy Rakel Masterson Monique [facility] 1.2.840.114 350.1.13.10 4.2.7.2.686 [id number] [facility] 2024-07-20 00:00:00 2024-07-20 09:20:16 Refill Will dunbar, Naomie Andrade [facility] 1.2.840.114 350.1.13.10 4.2.7.2.686 [id number] [facility] 2024-07-01 00:00:00 2024-07-01 10:57:09 Specialty Pharmacy Sue Little Emily C [facility] 1.2.840.114 350.1.13.10 4.2.7.2.686 [id number] [facility] 2024-06-25 00:00:00 2024-06-30 10:50:39 Refill Abbey Harris [facility] 1.2840.114 350.1.13.10 4.2.7.2.686 [id number] [facility] 2024-06-25 00:00:00 2024-06-25 10:50:55 Refill Naomie Beck do [facility] 1.2.840.114 350.1.13.10 4.2.7.2.686 [id number] [facility] 2024-06-24 00:00:00 2024-06-24 11:14:14 Parminder Bear [facility] 1.2.840.114 350.1.13.10 4.2.7.2.686 [id number] [facility] 2024-06-14 00:00:00 2024-06-14 09:52:04 Telephone Abner Rivera [facility] 1.2.840.114 350.1.13.10 4.2.7.2.686 [id number] [facility] 2024-06-09 00:00:00 2024-06-14 08:38:15 Telephone Naomie Beck do [facility] 1.2.840.114 350.1.13.10 4.2.7.2.686 [id number] [facility] 2020-05-01 00:00:00 2024-06-12 02:58:10 Orders Only Georgia Miller Chelsea N [facility] 1.2.840.114 350.1.13.10 4.2.7.2.686 [id number] [facility] 2024-06-02 00:00:00 2024-06-02 14:17:38 Specialty Pharmacy Padmaja Mcmahan Michael A [facility] 1.2.840.114 350.1.13.10 4.2.7.2.686 [id number] [facility] 2024-05-31 00:00:00 2024-06-02 08:56:23 Telephone Abner Rivera [facility] 1.2.840.114 350.1.13.10 4.2.7.2.686 [id number] [facility] 2024-05-26 00:00:00 2024-05-26 14:20:22 Refill Abner Rivera [facility] 1.2.840.114 350.1.13.10 4.2.7.2.686 [id number] [facility] 2024-05-26 09:40:00 2024-05-26 09:47:13 Outpatient R [facility] [id number] [facility] 2024-05-26 09:40:00 2024-05-26 09:47:13 Office Visit Soha [facility] 1.2.840.114 350.1.13.10 4.2.7.2.686 [id number] [facility] 2024-05-24 15:40:00 2024-05-24 15:40:00 Outpatient R OBI-KHALIDA , DHIRAJ OBI-KHALIDA , DHIRAJ [facility] [id number] [facility] 2024-05-24 15:40:00 2024-05-24 15:40:00 Outpatient R OBI-KHALIDA , DHIRAJ OBI-KHALIDA , DHIRAJ [facility] [id number] [facility] 2024-05-24 00:00:00 2024-05-24 11:14:23 Refill Abner Rivera [facility] 1.2.840.114 350.1.13.10 4.2.7.2.686 [id number] 044 [id number] [facility] 2024-05-22 00:00:00 2024-05-24 09:16:52 Refill Junior Garcia [facility] 1.2.840.114 350.1.13.10 4.2.7.2.686 [id number] 044 [id number] [facility] 2024-05-20 00:00:00 2024-05-20 09:16:47 Telephone Abner Rivera [facility] 1.2.840.114 350.1.13.10 4.2.7.2.686 [id number] 044 [id number] [facility] 2024-05-20 00:00:00 2024-05-20 09:12:26 Telephone Abner Rivera [facility] 1.2.840.114 350.1.13.10 4.2.7.2.686 [id number] 044 [id number] [facility] 2024-05-18 00:00:00 2024-05-18 13:10:28 Refill Abner Rivera [facility] 1.2.840.114 350.1.13.10 4.2.7.2.686 [id number] [id number] [facility] 2024-05-18 10:30:00 2024-05-18 10:30:00 Outpatient R JUNIOR GARCIA OGECHUKWU [facility] [id number] [facility] 2024-05-12 00:00:00 2024-05-12 08:17:17 Telephone Abner Rivera [facility] 1.2.840.114 350.1.13.10 4.2.7.2.686 [id number] 044 [id number] [facility] 2024-05-12 00:00:00 2024-05-12 00:00:00 Outpatient R ABNER RIVERA [facility] [id number] [facility] 2024-05-12 00:00:00 2024-05-12 00:00:00 Outpatient R ABNER RIVERA [facility] [id number] [facility] 2024-05-06 00:00:00 2024-05-06 00:00:00 Outpatient R ROBNG, PETER [facility] [id number] [facility] 2024-05-06 00:00:00 2024-05-06 00:00:00 Outpatient ABNER CARDONA [facility] [id number] [facility] 2024-04-29 08:40:00 2024-04-29 09:20:00 Office Visit Abner Rivera [facility] 1.2.840.114 350.1.13.10 4.2.7.2.686 [id number] 044 [id number] [facility] 2024-04-29 08:40:00 2024-04-29 08:40:00 Outpatient ABNER CARDONA [facility] [id number] [facility] 2024-04-26 00:00:00 2024-04-26 14:43:48 Specialty Pharmacy Shyann Fitch Shat[place] [facility] [place] 1..840.114 350.1.13.10 4.2.7.2.686 [id number] [facility] 2024-04-23 08:30:00 2024-04-23 08:23:03 Outpatient R ABNER RIVERA [facility] [id number] [facility] 2024-04-23 08:30:00 2024-04-23 08:23:03 Windows Admin Visit Matt CLEANINGABNER SEE [facility] 1..840.114 350.1.13.10 4.2.7.2.686 [id number] [facility] 2024-04-19 00:00:00 2024-04-19 15:26:33 Refill Nicole [facility] 1.2.840.114 350.1.13.10 4.2.7.2.686 [id number] 044 [id number] [facility] 2024-04-12 14:00:00 2024-04-12 14:09:55 Outpatient R SHANAE [facility] [id number] [facility] 2024-04-12 14:00:00 2024-04-12 14:09:55 Office Visit Naomie Beck do[facility] 1.2840.114 350.1.13.10 4.2.7.2.686 [id number] [facility] 2024-04-12 12:45:00 2024-04-12 13:00:00 Windows Admin Visit Vtc-Lab Naomie Beck do [facility]TY [facility] 1.840.114 350.1.13.10 4.2.7.2.686 [id number] [facility] 2024-04-12 00:00:00 2024-04-12 10:15:06 Specialty Pharmacy Shyann Fitch Shatara E [facility] 1.2.840.114 350.1.13.10 4.2.7.2.686 [id number] 016 [id number] [facility] 2024-03-23 00:00:00 2024-03-23 16:05:14 Specialty Pharmacy Sandy Perry Tamara L [facility] 1.2.840.114 350.1.13.10 4.2.7.2.686 [id number] [id number] [facility] 2024-03-23 00:00:00 2024-03-23 14:40:26 Abbey Kasper [facility] 1.2840.114 350.1.13.10 4.2.7.2.686 [id number] 028 [id number] [facility] 2024-03-03 00:00:00 2024-03-23 09:23:19 Refill Abbey Harris [facility] 1.2.840.114 350.1.13.10 4.2.7.2.686 [id number] 028 [id number] [facility] 2024-03-19 00:00:00 2024-03-19 16:37:24 Refill Abner Rivera [facility] 1.2.840.114 350.1.13.10 4.2.7.2.686 [id number] 044 [id number] [facility] 2024-02-13 00:00:00 2024-02-15 14:34:50 Refill Abner Rivera [facility] 1.2.840.114 350.1.13.10 4.2.7.2.686 [id number] 044 [id number] [facility] 2024-02-13 00:00:00 2024-02-13 10:01:52 Specialty Pharmacy Shyann Fitch Shatara E [facility] 1.2840.114 350.1.13.10 4.2.7.2.686 [id number] 016 [id number] [facility] 2024-02-11 16:30:00 2024-02-11 16:30:00 Outpatient R KAIN JULIEN STRAHIL [facility] [id number] [facility] 2024-02-11 16:30:00 2024-02-11 16:30:00 Outpatient R KAIN JULIEN STRAHIL [facility] [id number] [facility] 2024-01-23 00:00:00 2024-01-23 09:16:42 Refill Junior Garcia [facility] 1.2840.114 350.1.13.10 4.2.7.2.686 [id number] 044 [id number] [facility] 2024-01-22 00:00:00 2024-01-22 13:24:58 Refill Abner Rivera [facility] 1.2.840.114 350.1.13.10 4.2.7.2.686 [id number] 044 [id number] [facility] 2024-01-21 08:40:00 2024-01-21 08:59:05 Outpatient R ABNER RIVERA [facility] [id number] [facility] 2024-01-21 08:40:00 2024-01-21 08:59:05 Office Visit Abner Rivera [facility] 1.2.840.114 350.1.13.10 4.2.7.2.686 [id number] 044 [id number] [facility] 2024-01-21 08:00:00 2024-01-21 08:57:10 Office Visit Abner Rivera [facility] 1.2.840.114 350.1.13.10 4.2.7.2.686 [id number] 044 [id number] [facility] 2024-01-13 00:00:00 2024-01-13 11:11:55 Pre Visit Outreach Mac July Nelson Watts July [facility] 1.2.840.114 350.1.13.10 4.2.7.2.686 [id number] 082 [id number] [facility] 2024-01-13 10:00:00 2024-01-13 10:03:55 Outpatient [facility] [id number] [facility] 2024-01-13 10:00:00 2024-01-13 10:03:55 [facility] 1.2.840.114 350.1.13.10 4.2.7.2.686 [id number] 059 [id number] [facility] 2024-01-09 00:00:00 2024-01-09 11:21:46 Abner Reynolds [facility] 1.2840.114 350.1.13.10 4.2.7.2.686 [id number] 044 [id number] [facility] 2024-01-09 00:00:00 2024-01-09 10:06:04 Abstract Behzad Jolly [facility] 1.0.114 350.1.13.10 4.2.7.2.686 [id number] [facility] 2024-01-05 00:00:00 2024-01-05 16:21:06 Specialty Pharmacy Marisela Van Sudha [facility] [place] 1.0.114 350.1.13.10 4.2.7.2.686 [id number] 016 [id number] [facility] 2024-01-05 16:00:00 2024-01-05 16:15:00 Windows Admin Visit Vtc-Lab Behzad Jolly Vt-[facility] IALTY [facility] 1.0.114 350.1.13.10 4.2.7.2.686 [id number] [facility] 2024-01-05 14:30:00 2024-01-05 15:50:59 Outpatient R BEHZAD JOLLY [facility] [id number] [facility] 2024-01-05 14:30:00 2024-01-05 15:50:59 Office Visit [facility]zad J[facility] 1..114 350.1.13.10 4.2.7.2.686 [id number] [facility] 2024-01-02 00:00:00 2024-01-02 12:11:51 Pre Visit Outreach Mac Lisette Nelson Watts July [facility] 1.2840.114 350.1.13.10 4.2.7.2.686 [id number] 082 [id number] [facility] 2023-12-05 00:00:00 2023-12-05 09:42:34 Refill Junior Garcia [facility] 1.2.840.114 350.1.13.10 4.2.7.2.686 [id number] 044 [id number] [facility] 2023-12-03 00:00:00 2023-12-03 18:16:49 Refill Tomeka Hoyos [facility] 1.2.840.114 350.1.13.10 4.2.7.2.686 [id number] 059 [id number] [facility] 2023-12-02 14:00:00 2023-12-02 14:00:00 Outpatient R [facility] [id number] [facility] 2023-11-27 12:15:00 2023-11-27 12:15:00 Outpatient R LAWRENCE COBURNMAD [facility] [id number] [facility] 2023-11-27 12:15:00 2023-11-27 12:15:00 Windows Admin Visit Matt [place] [facility] 1.0.114 350.1.13.10 4.2.7.2.686 [id number] [facility] 2023-11-27 00:00:00 2023-11-27 12:09:01 Letter (Out) Doctor Unassigned, [place] [facility] 1.2840.114 350.1.13.10 4.2.7.2.686 [id number] 044 [id number] [facility] 2023-11-21 13:00:00 2023-11-21 13:00:00 Outpatient R [facility] [id number] [facility] 2023-11-21 13:00:00 2023-11-21 13:00:00 Outpatient R [facility] [id number] [facility] 2023-11-20 00:00:00 2023-11-21 08:54:12 Telephone Soha [facility] 1..840.114 350.1.13.10 4.2.7.2.686 [id number] 059 [id number] [facility] 2023-11-11 00:00:00 2023-11-17 16:20:39 Telephone Will dunbar, Naomie Andrade [facility] 1.840.114 350.1.13.10 4.2.7.2.686 [id number] [facility] 2023-11-14 00:00:00 2023-11-14 14:56:02 Letter (Out) Nicolle Phillips [facility] 1..840.114 350.1.13.10 4.2.7.2.686 [id number] 044 [id number] [facility] 2023-11-12 15:20:00 2023-11-12 15:49:17 Outpatient R [facility] [id number] [facility] 2023-11-12 15:20:00 2023-11-12 15:49:17 Office Visit Soha [facility] 1..840.114 350.1.13.10 4.2.7.2.686 [id number] 059 [id number] [facility] 2023-11-06 09:40:00 2023-11-06 09:40:00 [facility] [id number] [facility] 2023-10-28 00:00:00 2023-10-28 16:26:36 Telephone HermilaranjittanyaAbner [facility] 1.2.840.114 350.1.13.10 4.2.7.2.686 [id number] 044 [id number] [facility] 2023-10-24 00:00:00 2023-10-27 15:59:46 Telephone Angeles Hoyosjose [facility] 1.2.840.114 350.1.13.10 4.2.7.2.686 [id number] 059 [id number] [facility] 2023-10-23 10:45:00 2023-10-23 11:00:00 Windows Admin Visit 2, Adc Lab [facility] 1.2840.114 350.1.13.10 4.2.7.2.686 [id number] [facility] 2023-10-23 10:45:00 2023-10-23 10:52:43 Outpatient R [facility] [id number] [facility] 2023-10-16 15:20:00 2023-10-16 15:29:53 Outpatient R [facility] [id number] [facility] 2023-10-16 15:20:00 2023-10-16 15:29:53 Office Visit Soha [facility] 1.2840.114 350.1.13.10 4.2.7.2.686 [id number] 059 [id number] [facility] 2023-10-16 00:00:00 2023-10-16 15:23:52 Telephone Behzad Jolly [facility] 1.2840.114 350.1.13.10 4.2.7.2.686 [id number] [facility] 2023-10-14 00:00:00 2023-10-14 15:49:27 Telephone Rose Leach [facility] ([facility] 1.2840.114 350.1.13.10 4.2.7.2.686 [id number] 016 [id number] [facility] 2023-10-07 10:30:00 2023-10-07 10:37:23 Windows Admin Visit 2, Adc Lab [facility] 1.20.114 350.1.13.10 4.2.7.2.686 [id number] [facility] 2023-10-07 10:00:00 2023-10-07 10:12:48 Outpatient Matt [facility] [id number] [facility] 2023-10-07 10:00:00 2023-10-07 10:12:48 Office Visit Phil Phillipsssica [facility] 1.20.114 350.1.13.10 4.2.7.2.686 [id number] 044 [id number] [facility] 2023-09-29 00:00:00 2023-09-29 15:01:08 Case Management Jack Grady 1.2.114 350.1.13.10 4.2.7.2.686 [id number] 086 [id number] [facility] 2023-09-21 00:00:00 2023-09-23 10:36:08 Behzad Larsen [facility] 1.2.114 350.1.13.10 4.2.7.2.686 [id number] [facility] 2023-09-17 15:30:00 2023-09-17 15:30:00 Outpatient R VENITA MAYORGA [facility] [id number] [facility] 2023-09-16 00:00:00 2023-09-17 09:02:54 Telephone Rehan [facility] ([facility]) 1.2.840.114 350.1.13.10 4.2.7.2.686 [id number] 016 [id number] [facility] 2023-09-09 00:00:00 2023-09-13 10:23:56 Telephone Abner Rivera [facility] 1.2.840.114 350.1.13.10 4.2.7.2.686 [id number] 044 [id number] [facility] 2023-09-12 14:30:00 2023-09-12 14:30:00 Outpatient Matt MUKESH [facility] [id number] [facility] 2023-09-08 00:00:00 2023-09-10 11:02:43 Telephone Mukesh [facility] MEDICAL OFFICE BUILDING 1.2.840.114 350.1.13.10 4.2.7.2.686 [id number] 059 [id number] [facility] 2023-09-08 00:00:00 2023-09-09 14:11:04 Telephone Javon [facility] 1.2.840.114 350.1.13.10 4.2.7.2.686 [id number] [facility] 2023-09-01 00:00:00 2023-09-02 09:09:12 Telephone Rehan Marisela [facility] ([facility] 1.2.840.114 350.1.13.10 4.2.7.2.686 [id number] 016 [id number] [facility] 2023-08-28 00:00:00 2023-08-28 00:00:00 Junior Hilton [facility] 1.840.114 350.1.13.10 4.2.7.2.686 [id number] 044 [id number] [facility] 2023-08-28 00:00:00 2023-08-28 00:00:00 Refill Behzad Jolly [facility] 1..114 350.1.13.10 4.2.7.2.686 [id number] [facility] 2023-08-28 00:00:00 2023-08-28 00:00:00 Refill Abner Rivera [facility] 1..114 350.1.13.10 4.2.7.2.686 [id number] 044 [id number] [facility] 2023-08-21 10:30:00 2023-08-21 11:24:32 Outpatient R ASHWIN WEIR [facility] [id number] [facility] 2023-08-21 10:30:00 2023-08-21 11:24:32 Office Visit Ashwin [facility] 1..114 350.1.13.10 4.2.7.2.686 [id number] [facility] 2023-08-07 13:45:00 2023-08-07 13:45:00 Outpatient R DIANDRA TILLMAN RENUKA [facility] [id number] [facility] 2023-07-31 14:15:00 2023-07-31 14:30:00 Office Visit Jt Alejandro [facility] 1..114 350.1.13.10 4.2.7.2.686 [id number] [facility] 2023-07-31 14:15:00 2023-07-31 14:15:00 Outpatient R JT ALEJANDRO [facility] [id number] [facility] 2023-07-28 00:00:00 2023-07-28 00:00:00 Telephone Abner Rivera [facility] S[facility] 1.2.840.114 350.1.13.10 4.2.7.2.686 [id number] 044 [id number] [facility] 2023-07-23 15:20:00 2023-07-23 15:20:00 Outpatient R OBI-KHALIDA , DHIRAJ OBI-KHALIDA , DHIRAJ [facility] [id number] [facility] 2023-07-21 08:45:00 2023-07-21 08:45:00 Outpatient R MOPURU, DIANDRA MOPURU, DIANDRA [facility] [id number] [facility] 2023-07-18 00:00:00 2023-07-18 00:00:00 Transition of Care Cassius Deras 1..840.114 350.1.13.10 4.2.7.2.686 [id number] [facility] 2023-07-02 19:45:00 2023-07-17 11:15:00 Inpatient U CHUYSharyn [facility] [id number] [facility] 2023-07-02 19:45:00 2023-07-17 11:15:00 Hospital Encounter Sanket Blair, Jackson [facility]orga[facility] 1..840.114 350.1.13.10 4.2.7.2.686 [id number] [facility] 2023-07-11 11:40:00 2023-07-11 11:40:00 Outpatient R ABNER RIVERA [facility] [id number] [facility] 2023-07-08 19:30:00 2023-07-08 22:20:00 Surgery [facility] 1.2.840.114 350.1.13.10 4.2.7.2.686 [id number] [facility] 2023-07-08 06:45:00 2023-07-08 13:22:00 Surgery Javon [facility] 1.2.840.114 350.1.13.10 4.2.7.2.686 [id number] [facility] 2023-07-04 15:12:00 2023-07-04 16:12:00 [facility] 1.2.840.114 350.1.13.10 4.2.7.2.686 [id number] [facility] 2023-07-02 00:00:00 2023-07-02 00:00:00 Telephone Tomeka [facility]oyos [facility] 1.2.840.114 350.1.13.10 4.2.7.2.686 [id number] 059 [id number] [facility] 2023-06-24 00:00:00 2023-06-24 00:00:00 Telephone Abner Rivera [facility] 1.2.840.114 350.1.13.10 4.2.7.2.686 [id number] [id number] [facility] 2023-06-20 10:00:00 2023-06-20 10:45:13 Outpatient R DIANDRA TILLMAN RENUKA [facility] [id number] [facility] 2023-06-20 10:00:00 2023-06-20 10:45:13 Office Visit [facility] 1.2.840.114 350.1.13.10 4.2.7.2.686 [id number] [facility] 2023-06-20 00:00:00 2023-06-20 00:00:00 Orders Only Doctor Unassigned, [place] [facility] 1.114 350.1.13.10 4.2.7.2.686 [id number] [facility] 2023-06-13 09:30:00 2023-06-13 09:30:00 Outpatient KURTIS MORENO LEAH [facility] [id number] [facility] 2023-06-12 00:00:00 2023-06-12 00:00:00 Telephone Abner Rivera [facility] 1.114 350.1.13.10 4.2.7.2.686 [id number] [id number] [facility] 2023-06-12 00:00:00 2023-06-12 00:00:00 Orders Only Doctor Unassigned, [place] [facility] 1.114 350.1.13.10 4.2.7.2.686 [id number] [facility] 2023-05-26 11:00:00 2023-05-26 11:15:00 Windows Admin Visit Vtc-Lab Will dunbar, Naomie [facility] 1.114 350.1.13.10 4.2.7.2.686 [id number] [facility] 2023-05-26 10:00:00 2023-05-26 10:41:00 Outpatient R NAOMIE BECK DO [facility] [id number] [facility] 2023-05-26 10:00:00 2023-05-26 10:41:00 Office Visit Parminder Rueda do, Ann [facility] 1.114 350.1.13.10 4.2.7.2.686 [id number] [facility] 2023-05-23 11:30:00 2023-05-23 11:48:50 Windows Admin Visit 2, Adc Lab Diandra Tillman [facility] 1..114 350.1.13.10 4.2.7.2.686 [id number] [facility] 2023-05-23 09:15:00 2023-05-23 10:33:55 Outpatient R LAYNEDIANDRA AKIKODIANDRA LAL [facility] [id number] [facility] 2023-05-23 09:15:00 2023-05-23 10:33:55 Office Visit Diandra Tillman [facility] 1..114 350.1.13.10 4.2.7.2.686 [id number] [facility] 2023-05-23 00:00:00 2023-05-23 00:00:00 Orders Only Doctor Unassigned, [place] [facility] 1..114 350.1.13.10 4.2.7.2.686 [id number] [facility] 2023-05-19 08:15:00 2023-05-19 08:15:00 Outpatient R [facility] [id number] [facility] 2023-05-02 10:30:00 2023-05-02 10:48:00 Outpatient R GARY TILLMANUKA AKIKODIANDRA LAL [facility] [id number] [facility] 2023-05-02 10:30:00 2023-05-02 10:45:00 Imm/Inj Visit Diandra Tillmna [facility] 1.114 350.1.13.10 4.2.7.2.686 [id number] [facility] 2023-05-02 00:00:00 2023-05-02 00:00:00 Orders Only Doctor Unassigned, [place] [facility] 1.2840.114 350.1.13.10 4.2.7.2.686 [id number] [facility] 2023-04-24 00:00:00 2023-04-24 00:00:00 Telephone Abner Rivera [facility] 1.2840.114 350.1.13.10 4.2.7.2.686 [id number] [facility] 2023-04-22 15:00:00 2023-04-22 15:00:00 Outpatient R ABNER RIVERA [facility] [id number] [facility] 2023-03-28 10:15:00 2023-03-28 11:29:01 [facility] [id number] [facility] 2023-03-28 10:15:00 2023-03-28 10:30:00 Imm/Inj Visit Diandra Tillman [facility] 1.2840.114 350.1.13.10 4.2.7.2.686 [id number] [facility] 2023-03-28 00:00:00 2023-03-28 00:00:00 Orders Only Doctor Unassigned, [place] [facility] 1.2840.114 350.1.13.10 4.2.7.2.686 [id number] [facility] 2023-03-17 00:00:00 2023-03-17 00:00:00 Telephone Behzad Jolly [facility] 1.2840.114 350.1.13.10 4.2.7.2.686 [id number] [facility] 2023-03-17 00:00:00 2023-03-17 00:00:00 Ana Junior aGrcia [facility] 1..840.114 350.1.13.10 4.2.7.2.686 [id number] [facility] 2023-03-13 09:45:00 2023-03-13 10:00:00 Windows Admin Visit 2, Adc Lab DaryaPadmaja lewis [facility] 1..840.114 350.1.13.10 4.2.7.2.686 [id number] [facility] 2023-03-13 09:45:00 2023-03-13 09:55:38 Outpatient Matt EMERSON PADMAJA [facility] [id number] [facility] 2023-03-12 00:00:00 2023-03-12 00:00:00 Telephone Penny Spencer [facility] 1.840.114 350.1.13.10 4.2.7.2.686 [id number] [facility] 2023-03-10 13:45:00 2023-03-10 13:45:00 Outpatient R VAN BROWN [facility] [id number] [facility] 2023-02-24 10:30:00 2023-02-24 11:29:02 Outpatient R DIANDRA TILLMAN RENUKA [facility] [id number] [facility] 2023-02-24 10:30:00 2023-02-24 10:45:00 Imm/Inj Visit Diandra Tillman [facility] [facility] 1.840.114 350.1.13.10 4.2.7.2.686 [id number] [facility] 2023-02-24 00:00:00 2023-02-24 00:00:00 Orders Only Doctor Unassigned, [place] [facility] 1.2840.114 350.1.13.10 4.2.7.2.686 [id number] [facility] 2023-02-19 10:00:00 2023-02-19 11:08:18 Outpatient R JUNIOR GARCIA OGECHUKWU [facility] [id number] [facility] 2023-02-19 10:00:00 2023-02-19 11:08:18 Office Visit Junior Garcia [facility] 1.0.114 350.1.13.10 4.2.7.2.686 [id number] [id number] [facility] 2023-02-19 10:30:00 2023-02-19 10:45:00 Windows Admin Visit 2, Adc Lab Junior Garcia [facility] NAL BUILD[facility] 1.0.114 350.1.13.10 4.2.7.2.686 [id number] [facility] 2023-02-19 00:00:00 2023-02-19 00:00:00 Telephone Behzad Jolly [facility] 1..114 350.1.13.10 4.2.7.2.686 [id number] [facility] 2023-01-27 14:30:00 2023-01-27 16:11:42 Outpatient R DIANDRA TILLMAN RENUKA [facility] [id number] [facility] 2023-01-27 14:30:00 2023-01-27 16:11:42 Office Visit Diandra Tillman [facility] 1..114 350.1.13.10 4.2.7.2.686 [id number] [facility] 2023-01-21 00:00:00 2023-01-21 00:00:00 Telephone Junior [facility] 1.2.840.114 350.1.13.10 4.2.7.2.686 [id number] [id number] [facility] 2023-01-14 00:00:00 2023-01-14 00:00:00 Telephone Junior Garcia [facility] 1.2840.114 350.1.13.10 4.2.7.2.686 [id number] 044 [id number] [facility] 2023-01-13 11:00:00 2023-01-13 11:50:19 [facility]patient [facility] [id number] [facility] 2023-01-13 11:00:00 2023-01-13 11:50:19 Office Visit Junior Garcia [facility] 1.2840.114 350.1.13.10 4.2.7.2.686 [id number] [id number] [facility] 2023-01-09 00:00:00 2023-01-09 00:00:00 Orders Only Doctor Unassigned, [place] [facility] 1.20.114 350.1.13.10 4.2.7.2.686 [id number] [facility] 2023-01-06 10:15:00 2023-01-06 11:47:22 Outpatient R VAN BROWN [facility] [id number] [facility] 2023-01-06 10:15:00 2023-01-06 10:30:00 Office Visit Van Brown [facility] 1.2840.114 350.1.13.10 4.2.7.2.686 [id number] [facility] 2022-12-23 13:40:00 2022-12-23 13:40:00 Office Visit Kurtis Chase [facility] 1.114 350.1.13.10 4.2.7.2.686 [id number] [facility] 2022-12-23 13:40:00 2022-12-23 13:32:47 Outpatient R JONO CHASEAH JONO CHASEAH [facility] [id number] [facility] 2022-12-17 10:15:00 2022-12-17 10:15:00 Outpatient R ML KEYES [facility] [id number] [facility] 2022-12-17 00:00:00 2022-12-17 00:00:00 Telephone Abner Rivera [facility] 1.840.114 350.1.13.10 4.2.7.2.686 [id number] [facility] 2022-12-06 10:00:00 2022-12-06 10:00:00 Outpatient R RADHA STAHL SHIWAN [facility] [id number] [facility] 2022-11-25 13:20:00 2022-11-25 13:52:09 Outpatient R NAOMIE BECK DO [facility] [id number] [facility] 2022-11-25 13:20:00 2022-11-25 13:52:09 Office Visit Behzad Jolly do, Ann K N [facility] ..114 350.1.13.10 4.2.7.2.686 [id number] [facility] 2022-11-22 09:30:00 2022-11-22 10:02:39 Outpatient R NAOMIE BECK DO [facility] [id number] [facility] 2022-11-22 09:30:00 2022-11-22 09:45:00 Windows Admin Visit 2, Adc Lab Naomie Beck do Sharyn Andrade [facility] 1..840.114 350.1.13.10 4.2.7.2.686 [id number] [facility] 2022-11-11 00:00:00 2022-11-11 00:00:00 Refill ShannanJunior mitchell [facility] 1.84.114 350.1.13.10 4.2.7.2.686 [id number] 044 [id number] [facility] 2022-11-05 08:30:00 2022-11-05 08:30:00 Outpatient R ML KEYES [facility] [id number] [facility] 2022-10-28 14:21:31 2022-10-28 23:59:00 Outpatient R ABNER RIVERA [facility] [id number] [facility] 2022-10-28 14:21:31 2022-10-28 23:59:00 Hospital Encounter Abner Rivera [facility] 1.840.114 350.1.13.10 4.2.7.2.686 [id number] [facility] 2022-10-24 09:30:00 2022-10-24 10:18:32 Outpatient R ABNER RIVERA [facility] [id number] [facility] 2022-10-24 09:30:00 2022-10-24 10:18:32 Windows Admin Visit Lab, Abner Conroy [facility] 1..840.114 350.1.13.10 4.2.7.2.686 [id number] [facility] 2022-10-24 00:00:00 2022-10-24 00:00:00 Telephone Naomie Beck do [facility] 1.114 350.1.13.10 4.2.7.2.686 [id number] [facility] 2022-10-23 09:30:00 2022-10-23 09:30:00 Outpatient R NAOMIE BECK DO [facility] [id number] [facility] 2022-10-21 09:00:00 2022-10-21 10:35:29 Outpatient R ABNER RIVERA [facility] [id number] [facility] 2022-10-21 09:00:00 2022-10-21 10:35:29 Office Visit Abner Rivera [facility] 1.840.114 350.1.13.10 4.2.7.2.686 [id number] [facility] 2022-10-18 11:00:00 2022-10-18 11:00:00 Outpatient R ABNER RIVERA [facility] [id number] [facility] 2022-10-18 00:00:00 2022-10-18 00:00:00 Orders Only Doctor Unassigned, [place] [facility] ..114 350.1.13.10 4.2.7.2.686 [id number] [facility] 2022-10-15 14:20:00 2022-10-15 14:25:18 Outpatient R TOMEKA HOYOS [facility] [id number] [facility] 2022-10-15 14:20:00 2022-10-15 14:25:18 Office Visit Tomeka Hoyos [facility] .840.114 350.1.13.10 4.2.7.2.686 [id number] [facility] 2022-09-30 09:45:00 2022-09-30 10:00:00 Windows Admin Visit Lab, Abner Conroy [facility] 1.840.114 350.1.13.10 4.2.7.2.686 [id number] [facility] 2022-09-30 09:45:00 2022-09-30 09:27:03 Outpatient R ABNER RIVERA [facility] [id number] [facility] 2022-09-30 00:00:00 2022-09-30 00:00:00 Telephone [facility]zyna Coburn [facility] 1.84.114 350.1.13.10 4.2.7.2.686 [id number] [facility] 2022-09-26 00:00:00 2022-09-26 00:00:00 Telephone Abner Rivera [facility] 1.840.114 350.1.13.10 4.2.7.2.686 [id number] [id number] [facility] 2022-09-24 13:45:00 2022-09-24 14:02:27 Outpatient R UNKNOWN, ATTENDING [facility] [id number] [facility] 2022-09-24 13:45:00 2022-09-24 14:02:27 Windows Admin Visit Lab, Meng Maxwell Unknown, Attending [facility] OFF[facility] 1.84.114 350.1.13.10 4.2.7.2.686 [id number] [facility] 2022-09-20 00:00:00 2022-09-20 00:00:00 Telephone Naomie Beck do [facility] 1.84.114 350.1.13.10 4.2.7.2.686 [id number] [facility] 2022-09-17 14:40:00 2022-09-17 14:40:00 Outpatient R NICOLE ABNER [facility] [id number] [facility] 2022-09-17 00:00:00 2022-09-17 00:00:00 Telephone Abner Rivera [facility] 1.2.840.114 350.1.13.10 4.2.7.2.686 [id number] 044 [id number] [facility] 2022-09-03 00:00:00 2022-09-03 00:00:00 Telephone Tomeka Hoyos [facility] 1..840.114 350.1.13.10 4.2.7.2.686 [id number] [facility] 2022-08-28 13:40:00 2022-08-28 13:40:00 Outpatient R KATARZYNA COBURN [facility] [id number] [facility] 2022-08-26 13:40:00 2022-08-26 15:14:40 Outpatient R BEHZAD JOLLY [facility] [id number] [facility] 2022-08-26 13:40:00 2022-08-26 15:14:40 Office Visit Behzad Jolly do, Ann K N [facility] 1.84.114 350.1.13.10 4.2.7.2.686 [id number] [facility] 2022-08-23 09:30:00 2022-08-23 09:54:02 Outpatient R NAOMIE BECK DO [facility] [id number] [facility] 2022-08-23 09:30:00 2022-08-23 09:45:00 Windows Admin Visit Lab, Meng Nguyen-Naomie Meyer do [facility] 1.840.114 350.1.13.10 4.2.7.2.686 [id number] [facility] 2022-08-22 09:30:00 2022-08-22 09:30:00 Outpatient R ALEKILLA-CRU NAOMIE DUNBAR [facility] [id number] [facility] 2022-08-13 00:00:00 2022-08-13 00:00:00 Telephone Katarzyna Coburn [facility] 1..114 350.1.13.10 4.2.7.2.686 [id number] [facility] 2022-08-12 09:00:00 2022-08-12 09:27:29 Outpatient R ALEKILLA-CRU NAOMIE DUNBAR [facility] [id number] [facility] 2022-08-12 09:00:00 2022-08-12 09:27:29 Windows Admin Visit Lab, Naomie Sharif do [facility] .840.114 350.1.13.10 4.2.7.2.686 [id number] [facility] 2022-08-06 00:00:00 2022-08-06 00:00:00 Telephone [facility] Beck [facility] .114 350.1.13.10 4.2.7.2.686 [id number] [facility] 2022-08-05 00:00:00 2022-08-05 00:00:00 Telephone Junior Garcia [facility] 1..114 350.1.13.10 4.2.7.2.686 [id number] [id number] [facility] 2022-07-31 12:00:00 2022-07-31 12:00:00 Outpatient R [facility] [id number] [facility] 2022-07-30 15:30:00 2022-07-30 16:00:00 Office Visit Junior Garcia [facility] 1..114 350.1.13.10 4.2.7.2.686 [id number] [facility] 2022-07-30 15:30:00 2022-07-30 15:30:00 Outpatient R JUNIOR GARCIA OGECHUKWU [facility] [id number] [facility] 2022-07-25 00:00:00 2022-07-25 00:00:00 Abstract Katarzyna Coburn [facility] 1.114 350.1.13.10 4.2.7.2.686 [id number] [facility] 2022-07-23 09:00:00 2022-07-23 09:20:00 Office Visit Kurtis Chase [facility] 1.114 350.1.13.10 4.2.7.2.686 [id number] [facility] 2022-07-23 09:00:00 2022-07-23 09:00:00 Outpatient R KURTIS CHASE LEAH [facility] [id number] [facility] 2022-07-22 00:00:00 2022-07-22 00:00:00 Telephone Behzad Jolly [facility] 1.114 350.1.13.10 4.2.7.2.686 [id number] [facility] 2022-07-20 00:00:00 2022-07-20 00:00:00 Refill Abner Rivera [facility] 1.0.114 350.1.13.10 4.2.7.2.686 [id number] [id number] [facility] 2022-07-20 00:00:00 2022-07-20 00:00:00 Refill Behzad Jolly [facility] 1..114 350.1.13.10 4.2.7.2.686 [id number] [facility] 2022-07-17 16:15:00 2022-07-17 16:30:00 Windows Admin Visit Vtc-Lab Katarzyna Coburn [facility] 1.114 350.1.13.10 4.2.7.2.686 [id number] [facility] 2022-07-17 14:20:00 2022-07-17 16:06:56 Outpatient R KATARZYNA COBURN [facility] [id number] [facility] 2022-07-17 14:20:00 2022-07-17 16:06:56 Office Visit Behzad Jolly Muhammad A [facility] 1..114 350.1.13.10 4.2.7.2.686 [id number] [facility] 2022-07-17 00:00:00 2022-07-17 00:00:00 Orders Only Doctor Unassigned, [place] [facility] 1..114 350.1.13.10 4.2.7.2.686 [id number] [facility] 2022-07-12 13:15:00 2022-07-12 13:32:40 Outpatient R KATARZYNA COBURN [facility] [id number] [facility] 2022-07-12 13:15:00 2022-07-12 13:32:40 Windows Admin Visit Lab, Ang - Db Unknown, Attending Katarzyna Coburn [facility] 1.840.114 350.1.13.10 4.2.7.2.686 [id number] [facility] 2022-06-29 00:00:00 2022-06-29 00:00:00 Refill [facility]zyna Coburn [facility] 1.0.114 350.1.13.10 4.2.7.2.686 [id number] [facility] 2022-06-14 00:00:00 2022-06-14 00:00:00 Telephone Matt Iglesias [facility] 1.840.114 350.1.13.10 4.2.7.2.686 [id number] [facility] 2022-06-13 00:00:00 2022-06-13 00:00:00 Case Management Kurtis Chase [facility] [place] [facility] 1.0.114 350.1.13.10 4.2.7.2.686 [id number] [facility] 2022-06-11 00:00:00 2022-06-11 00:00:00 [facility] [place] [facility] 1.840.114 350.1.13.10 4.2.7.2.686 [id number] [facility] 2022-06-04 00:00:00 2022-06-04 00:00:00 Telephone Katarzyna Coburn [facility] 1.0.114 350.1.13.10 4.2.7.2.686 [id number] [facility] 2022-06-03 09:40:00 2022-06-03 09:40:00 Outpatient R NAOMIE BECK DO [facility] [id number] [facility] 2022-06-03 00:00:00 2022-06-03 00:00:00 Telephone [facility]zyna Coburn [facility] 1.0.114 350.1.13.10 4.2.7.2.686 [id number] [facility] 2022-06-02 00:00:00 2022-06-02 00:00:00 Telephone [facility] 1.0.114 350.1.13.10 4.2.7.2.686 [id number] [facility] 2022-05-30 08:30:00 2022-05-30 09:35:01 Outpatient ABNER CARDONA [facility] [id number] [facility] 2022-05-30 08:30:00 2022-05-30 09:35:01 Windows Admin Visit Lab, Abner Conroy [facility] 1.0.114 350.1.13.10 4.2.7.2.686 [id number] [facility] 2022-05-16 09:00:00 2022-05-16 09:00:00 Office Visit Kurtis Chase [facility] 1.0.114 350.1.13.10 4.2.7.2.686 [id number] [facility] 2022-05-16 09:00:00 2022-05-16 08:56:34 Outpatient R KURTIS CHASE LEAH [facility] [id number] [facility] 2022-05-15 13:20:00 2022-05-15 13:20:00 Outpatient R SOHA, [facility] [id number] [facility] 2022-05-15 13:20:00 2022-05-15 13:20:00 Outpatient R SOHA, [facility] [id number] [facility] 2022-05-15 13:20:00 2022-05-15 13:20:00 Outpatient R SOHA, [facility] [id number] [facility] 2022-05-15 13:20:00 2022-05-15 13:20:00 Outpatient R SOHA, [facility] [id number] [facility] 2022-05-15 13:20:00 2022-05-15 13:20:00 Outpatient R SOHA, [facility] [id number] [facility] 2022-05-15 13:20:00 2022-05-15 13:20:00 Outpatient R SOHA, [facility] [id number] [facility] 2022-05-07 09:30:00 2022-05-07 10:23:01 Outpatient R JUNIOR GARCIA OGECHUKWU [facility] [id number] [facility] 2022-05-07 09:30:00 2022-05-07 10:23:01 Office Visit Junior Garcia [facility] 1.2.840.114 350.1.13.10 4.2.7.2.686 [id number] [facility] 2022-05-07 00:00:00 2022-05-07 00:00:00 Orders Only Doctor Unassigned, [place] [facility] 1.0.114 350.1.13.10 4.2.7.2.686 [id number] [facility] 2022-04-25 00:00:00 2022-04-25 00:00:00 Telephone Katarzyna Coburn [facility] 1.0.114 350.1.13.10 4.2.7.2.686 [id number] [facility] 2022-04-17 00:00:00 2022-04-17 00:00:00 Abstract [facility]arzyna Coburn [facility] 1..114 350.1.13.10 4.2.7.2.686 [id number] [facility] 2022-04-15 08:49:40 2022-04-15 23:59:00 Outpatient R NAOMIE BECK DO [facility] [id number] [facility] 2022-04-15 08:49:40 2022-04-15 23:59:00 Hospital Encounter Naomie Beck do [facility] 1..114 350.1.13.10 4.2.7.2.686 [id number] [facility] 2022-04-15 00:00:00 2022-04-15 00:00:00 Telephone Shanae [facility] 1..114 350.1.13.10 4.2.7.2.686 [id number] [facility] 2022-04-15 00:00:00 2022-04-15 00:00:00 Refill Shanae [facility] 1.0.114 350.1.13.10 4.2.7.2.686 [id number] [facility] 2022-04-10 10:00:00 2022-04-10 13:03:31 Outpatient R DARYADEBBIE PADMAJA [facility] [id number] [facility] 2022-04-10 10:00:00 2022-04-10 13:03:31 Windows Admin Visit 2, [facility] DaryadebbiePadmaja [facility] 1..840.114 350.1.13.10 4.2.7.2.686 [id number] [facility] 2022-04-05 00:00:00 2022-04-05 00:00:00 Telephone Katarzyna Coburn [facility] 1.840.114 350.1.13.10 4.2.7.2.686 [id number] [facility] 2022-04-04 00:00:00 2022-04-04 00:00:00 Telephone Behzad Jolly [facility] 1..114 350.1.13.10 4.2.7.2.686 [id number] [facility] 2022-04-01 14:20:00 2022-04-01 14:40:00 Nurse Visit Nurse, [facility] Naomie Mccabe do [facility] 1..840.114 350.1.13.10 4.2.7.2.686 [id number] [facility] 2022-04-01 11:30:00 2022-04-01 13:12:10 Outpatient NAOMIE HAQ DO [facility] [id number] [facility] 2022-04-01 11:30:00 2022-04-01 11:45:00 Windows Admin Visit 2, [facility] Naomie Edmond do [facility] 1..840.114 350.1.13.10 4.2.7.2.686 [id number] [facility] 2022-04-01 00:00:00 2022-04-01 00:00:00 Refill Abner Rivera [facility] 1.2840.114 350.1.13.10 4.2.7.2.686 [id number] [facility] 2022-03-28 00:00:00 2022-03-28 00:00:00 Refill Abner Rivera [facility] 1.2.840.114 350.1.13.10 4.2.7.2.686 [id number] [facility] 2022-03-22 00:00:00 2022-03-22 00:00:00 Refill Abner Rivera [facility] 1.2.840.114 350.1.13.10 4.2.7.2.686 [id number] [facility] 2022-03-22 00:00:00 2022-03-22 00:00:00 Refill Parminder Rueda [facility] ..114 350.1.13.10 4.2.7.2.686 [id number] [facility] 2022-03-14 00:00:00 2022-03-14 00:00:00 Telephone Nicole Abner [facility] 1.2840.114 350.1.13.10 4.2.7.2.686 [id number] [facility] 2022-03-13 00:00:00 2022-03-13 00:00:00 Telephone Behzad Jolly [facility] 1.114 350.1.13.10 4.2.7.2.686 [id number] [facility] 2022-03-12 15:30:00 2022-03-12 16:12:38 Outpatient R JUNIOR GARCIA OGECHUKWU [facility] [id number] [facility] 2022-03-12 15:30:00 2022-03-12 16:12:38 Office Visit Junior Garcia [facility] 1.114 350.1.13.10 4.2.7.2.686 [id number] [facility] 2022-03-12 14:30:00 2022-03-12 14:45:00 Windows Admin Visit 2, [facility] Behzad Jolly [facility] 1.114 350.1.13.10 4.2.7.2.686 [id number] [facility] 2022-02-26 09:00:00 2022-02-26 13:35:11 Outpatient R KURTIS CHASE LEAH [facility] [id number] [facility] 2022-02-26 09:00:00 2022-02-26 13:35:11 Office Visit Kurtis Chase [facility] 1.114 350.1.13.10 4.2.7.2.686 [id number] [facility] 2022-02-08 00:00:00 2022-02-08 00:00:00 Isreal Warren [facility] 1.84.114 350.1.13.10 4.2.7.2.686 [id number] [facility] 2022-02-04 13:00:00 2022-02-04 13:10:00 Imm/Inj Visit Vaccine, [facility] RobAbner monson [facility] 1.2.840.114 350.1.13.10 4.2.7.2.686 [id number] [facility] 2022-02-04 11:30:00 2022-02-04 12:05:54 Outpatient R JUNIOR GARCIA OGECHUKWU [facility] [id number] [facility] 2022-02-04 11:30:00 2022-02-04 12:05:54 Office Visit Shannan Robertyunior [facility] 1.2.840.114 350.1.13.10 4.2.7.2.686 [id number] [facility] 2022-01-30 15:00:00 2022-01-30 15:00:00 Outpatient R NICOLE [facility] [id number] [facility] 2022-01-30 15:00:00 2022-01-30 15:00:00 Outpatient R ABNER RIVERA [facility] [id number] [facility] 2022-01-28 10:00:00 2022-01-28 11:41:19 Outpatient R RORY JOLLY [facility] [id number] [facility] 2022-01-28 10:00:00 2022-01-28 11:41:19 Office Visit Behzad Jolly do, Naomie Jolly [facility] 1..840.114 350.1.13.10 4.2.7.2.686 [id number] [facility] 2022-01-28 00:00:00 2022-01-28 00:00:00 Telephone Behzad Jolly [facility] AND [facility] 1.840.114 350.1.13.10 4.2.7.2.686 [id number] [facility] 2022-01-24 12:00:00 2022-01-24 12:56:43 Outpatient ABNER CARDONA [facility] [id number] [facility] 2022-01-24 12:00:00 2022-01-24 12:56:43 Windows Admin Visit Lab, [facility] 1.840.114 350.1.13.10 4.2.7.2.686 [id number] [facility] 2022-01-17 10:40:00 2022-01-17 17:36:05 Outpatient KURTIS MORENO LEAH [facility] [id number] [facility] 2022-01-17 10:40:00 2022-01-17 11:00:00 Office Visit Kurtis Chase [facility] AND [facility] 1.840.114 350.1.13.10 4.2.7.2.686 [id number] [facility] 2022-01-17 10:40:00 2022-01-17 10:40:00 Outpatient KURTIS MORENO LEAH [facility] [id number] [facility] 2022-01-14 00:00:00 2022-01-14 00:00:00 Orders Only Doctor Unassigned, [place] [facility] 1.840.114 350.1.13.10 4.2.7.2.686 [id number] [facility] 2022-01-03 14:00:00 2022-01-03 14:00:00 Outpatient KATARZYNA VIDAL [facility] [id number] [facility] 2022-01-03 14:00:00 2022-01-03 14:00:00 Outpatient R KATARZYNA COBURN [facility] [id number] [facility] 2022-01-03 14:00:00 2022-01-03 14:00:00 Outpatient R KATARZYNA COBURN [facility] [id number] [facility] 2022-01-03 14:00:00 2022-01-03 14:00:00 Outpatient R KATARZYNA COBURN [facility] [id number] [facility] 2022-01-03 14:00:00 2022-01-03 14:00:00 Outpatient R KATARZYNA COBURN [facility] [id number] [facility] 2022-01-02 00:00:00 2022-01-02 00:00:00 [facility] 1.840.114 350.1.13.10 4.2.7.2.686 [id number] [facility] 2021-12-26 15:00:00 2021-12-26 15:56:20 Outpatient R ABNER RIVERA [facility] [id number] [facility] 2021-12-26 15:00:00 2021-12-26 15:56:20 Outpatient R ABNER RIVERA [facility] [id number] [facility] 2021-12-26 15:00:00 2021-12-26 15:56:20 Office Visit Abner Rivera [facility] NAL BUILD[facility] 1.840.114 350.1.13.10 4.2.7.2.686 [id number] [facility] 2021-12-21 00:00:00 2021-12-21 00:00:00 Telephone Behzad Jolly [facility] AND [facility] 1.840.114 350.1.13.10 4.2.7.2.686 [id number] [facility] 2021-12-20 11:15:00 2021-12-20 11:15:00 Outpatient R ABNER RIVERA [facility] [id number] [facility] 2021-12-20 11:15:00 2021-12-20 11:15:00 Windows Admin Visit Lab, Meng - Hans Rivera [facility] 1..840.114 350.1.13.10 4.2.7.2.686 [id number] [facility] 2021-12-20 11:15:00 2021-12-20 11:01:30 Outpatient R NICOLE [facility] [id number] [facility] 2021-12-20 11:15:00 2021-12-20 11:01:30 Outpatient R HERMILAMAYI [facility] [id number] [facility] 2021-12-17 00:00:00 2021-12-17 00:00:00 Transition of Care Cassius Deras [facility] 1..840.114 350.1.13.10 4.2.7.2.686 [id number] [facility] 2021-12-13 10:51:00 2021-12-15 17:59:00 Inpatient U ASHWIN [facility] [id number] [facility] 2021-12-13 10:51:00 2021-12-15 17:59:00 Hospital Encounter Nkechi Malave Russell A Karnath, Bernard [facility] 1..840.114 350.1.13.10 4.2.7.2.686 [id number] [facility] 2021-12-13 10:51:00 2021-12-15 17:59:00 Inpatient U [facility] [id number] [facility] 2021-12-13 00:00:00 2021-12-13 00:00:00 Telephone Naomie Beck do [facility] AND [facility] 1..840.114 350.1.13.10 4.2.7.2.686 [id number] [facility] 2021-11-26 00:00:00 2021-11-26 00:00:00 Telephone Tomeka Hoyos [facility] N[facility] BU[facility] 1..840.114 350.1.13.10 4.2.7.2.686 [id number] [facility] 2021-11-21 15:00:00 2021-11-21 16:16:51 Outpatient R HERMILARANJITABNER LAU [facility] [id number] [facility] 2021-11-21 15:00:00 2021-11-21 16:16:51 Office Visit Nicole [facility] BUILDING 1..840.114 350.1.13.10 4.2.7.2.686 [id number] [facility] 2021-11-21 15:00:00 2021-11-21 16:16:51 Outpatient R ABNER RIVERA [facility] [id number] [facility] 2021-11-21 15:00:00 2021-11-21 15:00:00 Outpatient R ABNER RIVERA [facility] [id number] [facility] 2021-11-14 10:30:00 2021-11-14 10:45:00 Windows Admin Visit 2, Adc Lab Nicole [facility] BUILDING 1.2.840.114 350.1.13.10 4.2.7.2.686 [id number] [facility] 2021-11-14 10:30:00 2021-11-14 10:45:00 Windows Admin Visit 2, Adc Lab Abner Rivera [facility] 1.2.840.114 350.1.13.10 4.2.7.2.686 [id number] [facility] 2021-11-14 09:30:00 2021-11-14 09:32:21 Outpatient R JUNIOR GARCIA OGECHUKWU [facility] [id number] [facility] 2021-11-14 09:30:00 2021-11-14 09:32:21 Office Visit Junior Garcia [facility] 1.2.840.114 350.1.13.10 4.2.7.2.686 [id number] [facility] 2021-11-05 14:00:00 2021-11-05 14:00:00 Outpatient R DESMOND JANESDAMON [facility] [id number] [facility] 2021-11-05 14:00:00 2021-11-05 14:00:00 Outpatient R DESMOND JANESNILSON [facility] [id number] [facility] 2021-10-18 08:00:00 2021-10-18 08:00:00 Outpatient R SHELBIE, COLÓN [facility] [id number] [facility] 2021-10-18 08:00:00 2021-10-18 08:00:00 Outpatient R SHELBIE COLÓN [facility] [id number] [facility] 2021-10-12 00:00:00 2021-10-12 00:00:00 Refill Abner Rivera [facility] 1.2.840.114 350.1.13.10 4.2.7.2.686 [id number] [facility] 2021-10-04 00:00:00 2021-10-04 00:00:00 Telephone Preeti Pelaezba [facility] 1.2840.114 350.1.13.10 4.2.7.2.686 [id number] [facility] 2021-10-02 08:40:00 2021-10-02 09:11:54 Outpatient R ABNER RIVERA [facility] [id number] [facility] 2021-10-02 08:00:00 2021-10-02 09:11:36 Office Visit Abner Rivera [facility] BU[facility] 1.2.840.114 350.1.13.10 4.2.7.2.686 [id number] [facility] 2021-10-02 08:40:00 2021-10-02 09:00:00 Office Visit Nicole [facility] BUILDING 1.2840.114 350.1.13.10 4.2.7.2.686 [id number] [facility] 2021-10-02 08:40:00 2021-10-02 08:40:00 Outpatient R ABNRE RIVERA [facility] [id number] [facility] 2021-10-02 08:00:00 2021-10-02 08:00:00 Outpatient R ABNER RIVERA [facility] [id number] [facility] 2021-10-02 00:00:00 2021-10-02 00:00:00 Orders Only Doctor Unassigned, [place] [facility] 1.2840.114 350.1.13.10 4.2.7.2.686 [id number] [facility] 2021-09-26 08:45:00 2021-09-26 09:00:00 Windows Admin Visit 2, Adc Lab Nicole [facility] BUILDING 1.2.840.114 350.1.13.10 4.2.7.2.686 [id number] [facility] 2021-09-26 08:45:00 2021-09-26 08:45:00 Outpatient R NICOLE ABNER [facility] [id number] [facility] 2021-09-26 08:45:00 2021-09-26 08:45:00 Outpatient R HERMILAMAYI ABNER [facility] [id number] [facility] 2021-09-26 08:45:00 2021-09-26 08:45:00 Outpatient R HERMILAMAYI ABNER [facility] [id number] [facility] 2021-09-26 08:45:00 2021-09-26 08:45:00 Outpatient R HERMILARANJITABNER LAU [facility] [id number] [facility] 2021-09-26 08:45:00 2021-09-26 08:45:00 Outpatient R NICOLE ABNER [facility] [id number] [facility] 2021-09-25 00:00:00 2021-09-25 00:00:00 Telephone Abner Rivera [facility] NAL BUILDING 1.2.840.114 350.1.13.10 4.2.7.2.686 [id number] [facility] 2021-09-18 14:00:00 2021-09-18 15:08:38 Outpatient R HERMILAMAYI ABNER [facility] [id number] [facility] 2021-09-18 14:00:00 2021-09-18 15:08:38 Office Visit Abner Rivera [facility] NAL BUILDING 1.2.840.114 350.1.13.10 4.2.7.2.686 [id number] [facility] 2021-09-18 14:00:00 2021-09-18 15:08:38 Outpatient R ABNER RIVERA [facility] [id number] [facility] 2021-09-18 14:00:00 2021-09-18 14:00:00 Outpatient ABNRE CARDONA [facility] [id number] [facility] 2021-09-18 14:00:00 2021-09-18 14:00:00 Outpatient R HERMILAABNER SEE [facility] [id number] [facility] 2021-09-06 14:45:00 2021-09-06 15:00:00 Windows Admin Visit Vtc-Lab [facility] 1.840.114 350.1.13.10 4.2.7.2.686 [id number] [facility] 2021-09-06 14:45:00 2021-09-06 14:45:00 [id number] 2021-09-06 13:40:00 2021-09-06 14:26:55 Office Visit Behzad Jolly Muhammad [facility] IALTY [facility] 1.840.114 350.1.13.10 4.2.7.2.686 [id number] [facility] 2021-09-06 13:40:00 2021-09-06 14:26:55 Outpatient R BEHZAD JOLLY [facility] [id number] [facility] 2021-09-06 13:40:00 2021-09-06 13:40:00 Outpatient R KATARZYNA COBURN [facility] [id number] [facility] 2021-09-06 00:00:00 2021-09-06 00:00:00 Telephone [facility]os [facility] 1..840.114 350.1.13.10 4.2.7.2.686 [id number] [facility] 2021-09-03 14:00:00 2021-09-03 14:00:00 Outpatient R KATARZYNA COBURN [facility] [id number] [facility] 2021-09-03 13:30:00 2021-09-03 13:41:21 Imm/Inj Visit Vaccine, Adc Family Medicine Nelly Parker Nelson [facility] BUILDING 1.2.840.114 350.1.13.10 4.2.7.2.686 [id number] [facility] 2021-09-03 13:30:00 2021-09-03 13:30:00 Outpatient R NELLY PARKER [facility] [id number] [facility] 2021-09-03 13:15:00 2021-09-03 13:30:00 Windows Admin Visit 2, Adc Flash Hoyos Angelesjose [facility] BUILDING 1.2.840.114 350.1.13.10 4.2.7.2.686 [id number] [facility] 2021-09-03 13:15:00 2021-09-03 13:15:00 Outpatient R BECKY HOYOSON [facility] [id number] [facility] 2021-09-03 13:15:00 2021-09-03 13:15:00 Outpatient R BECKY HOYOSON [facility] [id number] [facility] 2021-09-03 13:15:00 2021-09-03 13:15:00 [facility] [id number] [facility] 2021-09-03 13:15:00 2021-09-03 13:15:00 Outpatient R BECKY HOYOSON [facility] [id number] [facility] 2021-08-13 15:00:00 2021-08-13 15:00:00 [facility] [id number] [facility] 2021-08-13 14:00:00 2021-08-13 14:26:07 [facility] [id number] [facility] 2021-08-13 14:00:00 2021-08-13 14:26:07 Office Visit Soha [facility] NAL BUILDING 1..840.114 350.1.13.10 4.2.7.2.686 [id number] [facility] 2021-07-20 00:00:00 2021-07-20 00:00:00 Telephone Naomie Beck do [facility] IALTY [facility] 1.840.114 350.1.13.10 4.2.7.2.686 [id number] [facility] 2021-07-18 00:00:00 2021-07-18 00:00:00 Isreal Warren A [facility] 1..840.114 350.1.13.10 4.2.7.2.686 [id number] [facility] 2021-07-16 15:30:00 2021-07-16 15:30:00 Outpatient R [facility] [id number] [facility] 2021-07-16 15:30:00 2021-07-16 15:30:00 Outpatient R [facility] [id number] [facility] 2021-07-11 00:00:00 2021-07-11 00:00:00 Telephone Naomie Beck do Lupe [facility]ULT[facility]PEC IALTY [facility] 1.84.114 350.1.13.10 4.2.7.2.686 [id number] [facility] 2021-07-02 13:45:50 2021-07-02 23:59:00 Outpatient R BRENDA RAPHAEL [facility] [id number] [facility] 2021-07-02 13:45:50 2021-07-02 23:59:00 Hospital Encounter Brenda Raphael [facility] 1.2.840.114 350.1.13.10 4.2.7.2.686 [id number] [facility] 2021-07-02 13:45:50 2021-07-02 23:59:00 Outpatient R BRENDA RAPHAEL [facility] [id number] [facility] 2021-07-01 00:00:00 2021-07-01 00:00:00 Ana Jolly, [facility] 1..840.114 350.1.13.10 4.2.7.2.686 [id number] [facility] 2021-06-26 14:38:50 2021-06-26 23:59:00 Outpatient R TOMEKA HOYOS [facility] [id number] [facility] 2021-06-20 13:38:53 2021-06-20 23:59:00 Hospital Encounter Brenda Raphael [facility] 1.2.840.114 350.1.13.10 4.2.7.2.686 [id number] [facility] 2021-06-20 00:00:00 2021-06-20 23:59:00 Outpatient R IJEOMA BRENDA [facility] [id number] [facility] 2021-06-20 00:00:00 2021-06-20 23:59:00 Outpatient R BRENDA RAPHAEL [facility] [id number] [facility] 2021-06-20 00:00:00 2021-06-20 23:59:00 Outpatient R BRENDA RAPHAEL [facility] [id number] [facility] 2021-06-20 00:00:00 2021-06-20 23:59:00 Outpatient R BRENDA RAPHAEL [facility] [id number] [facility] 2021-06-20 00:00:00 2021-06-20 23:59:00 Outpatient R IJEOMA BRENDA [facility] [id number] [facility] 2021-06-13 08:00:00 2021-06-13 08:21:22 Outpatient R BRENDA RAPHAEL [facility] [id number] [facility] 2021-06-13 08:00:00 2021-06-13 08:21:22 Office Visit Brenda Raphael [facility] 1..840.114 350.1.13.10 4.2.7.2.686 [id number] [facility] 2021-06-13 08:00:00 2021-06-13 08:00:00 Outpatient R BRENDA RAPHAEL [facility] [id number] [facility] 2021-06-11 00:00:00 2021-06-11 00:00:00 Abstract Katarzyna Coburn [facility] IALTY [facility] 1.840.114 350.1.13.10 4.2.7.2.686 [id number] [facility] 2021-06-07 14:15:00 2021-06-07 14:45:00 Windows Admin Visit Vtc-Lab Katarzyna Coburn [facility] I[facility]TY [facility] 1.840.114 350.1.13.10 4.2.7.2.686 [id number] [facility] 2021-06-07 13:20:00 2021-06-07 14:00:27 Outpatient R KATARZYNA COBURN [facility] [id number] [facility] 2021-06-07 13:20:00 2021-06-07 14:00:27 Office Visit ShanaeBehzad lin Muhammad [facility] 1.2.840.114 350.1.13.10 4.2.7.2.686 [id number] [facility] 2021-06-07 13:20:00 2021-06-07 14:00:27 Outpatient R LAWRENCE COBURNMAD [facility] [id number] [facility] 2021-06-04 14:30:00 2021-06-04 14:49:47 Outpatient R LAWRENCE COBURNMAD [facility] [id number] [facility] 2021-06-04 14:30:00 2021-06-04 14:49:47 Windows Admin Visit Lab, Katarzyna Morley [facility] MEDICAL OFFICE BUILDING 1.2.840.114 350.1.13.10 4.2.7.2.686 [id number] [facility] 2021-06-04 14:30:00 2021-06-04 14:49:47 Outpatient R LAWRENCE COBURNMAD [facility] [id number] [facility] 2021-06-04 14:30:00 2021-06-04 14:49:47 Outpatient R FREDERICK COBURNHAMMAD [facility] [id number] [facility] 2021-06-04 14:30:00 2021-06-04 14:49:47 Outpatient R FREDERICK COBURNHAMMAD [facility] [id number] [facility] 2021-06-04 14:30:00 2021-06-04 14:30:00 Outpatient R LAWRENCE COBURNMAD [facility] [id number] [facility] 2021-06-04 08:00:00 2021-06-04 08:00:00 Outpatient R NAOMIE BECK DO [facility] [id number] [facility] 2021-06-04 08:00:00 2021-06-04 08:00:00 Outpatient R NAOMIE BECK DO [facility] [id number] [facility] 2021-06-04 00:00:00 2021-06-04 00:00:00 Orders Only Doctor Unassigned, [place] [facility] 1.840.114 350.1.13.10 4.2.7.2.686 [id number] [facility] 2021-06-04 00:00:00 2021-06-04 00:00:00 Telephone Isreal [facility] 1.84.114 350.1.13.10 4.2.7.2.686 [id number] [facility] 2021-06-01 00:00:00 2021-06-01 00:00:00 Telephone [facility] 1.114 350.1.13.10 4.2.7.2.686 [id number] [facility] 2021-05-25 00:00:00 2021-05-25 00:00:00 Telephone [facility] 1.84.114 350.1.13.10 4.2.7.2.686 [id number] [facility] 2021-05-23 00:00:00 2021-05-23 00:00:00 Refill Isreal Logan [facility] BU[facility] 1.84.114 350.1.13.10 4.2.7.2.686 [id number] [facility] 2021-05-22 14:00:00 2021-05-22 23:59:00 Outpatient R ANGELES HOYOSJOSE [facility] [id number] [facility] 2021-05-22 14:00:00 2021-05-22 23:59:00 [facility] 1.2.840.114 350.1.13.10 4.2.7.2.686 [id number] [facility] 2021-05-22 14:00:00 2021-05-22 14:00:00 [facility] [id number] [facility] 2021-05-21 15:30:00 2021-05-21 15:30:00 Office Visit Isreal Logan [facility] 1.2.840.114 350.1.13.10 4.2.7.2.686 [id number] [facility] 2021-05-21 15:30:00 2021-05-21 15:18:08 Outpatient R ISREAL LOGAN [facility] [id number] [facility] 2021-05-15 15:00:00 2021-05-15 15:33:39 [facility] [id number] [facility] 2021-05-15 15:00:00 2021-05-15 15:33:39 Office Visit Soha [facility] BUILDING 1.2.840.114 350.1.13.10 4.2.7.2.686 [id number] [facility] 2021-05-15 15:00:00 2021-05-15 15:33:39 Out[facility] [id number] [facility] 2021-05-15 15:00:00 2021-05-15 15:00:00 [facility] [id number] [facility] 2021-05-15 15:00:00 2021-05-15 15:00:00 Outpatient R TOMEKA HOYOS [facility] [id number] [facility] 2021-05-10 00:00:00 2021-05-10 00:00:00 Case Management MassacIsreal delarosa [facility] MEDICAL OFFICE BUILDING 1.2.840.114 350.1.13.10 4.2.7.2.686 [id number] [facility] 2021-05-09 14:00:00 2021-05-09 14:52:25 Outpatient R RUSSELL LOGANFUL [facility] [id number] [facility] 2021-05-09 14:00:00 2021-05-09 14:52:25 Outpatient R RUSSELL LOGANFUL [facility] [id number] [facility] 2021-05-09 14:00:00 2021-05-09 14:52:25 Outpatient R RUSSELL LOGANFUL [facility] [id number] [facility] 2021-05-09 14:00:00 2021-05-09 14:52:25 Outpatient R RUSSELL LOGANFUL [facility] [id number] [facility] 2021-05-09 14:00:00 2021-05-09 14:15:00 Windows Admin Visit Lab, Ang - Db MassacIsreal delarosa [facility] 1.2.840.114 350.1.13.10 4.2.7.2.686 [id number] [facility] 2021-05-09 14:00:00 2021-05-09 14:00:00 Outpatient R RUSSELL LOGANFUL [facility] [id number] [facility] 2021-05-07 08:45:00 2021-05-07 09:14:41 Outpatient R DESMONDRUSSELL DELAROSAFUL [facility] [id number] [facility] 2021-05-07 08:45:00 2021-05-07 09:14:41 Office Visit Isreal Logan [facility] 1..840.114 350.1.13.10 4.2.7.2.686 [id number] [facility] 2021-05-07 08:45:00 2021-05-07 09:14:41 Outpatient R ISREAL LOGAN [facility] [id number] [facility] 2021-05-07 08:45:00 2021-05-07 08:45:00 Outpatient R ISREAL LOGAN [facility] [id number] [facility] 2021-05-07 08:30:00 2021-05-07 08:30:00 Outpatient R DESMOND ISREAL [facility] [id number] [facility] 2021-05-01 13:00:00 2021-05-01 13:15:00 Windows Admin Visit [facility] Sleep Lab Kain Julien [facility] 1..840.114 350.1.13.10 4.2.7.2.686 [id number] [facility] 2021-05-01 13:00:00 2021-05-01 13:00:00 Outpatient R KAIN JULIEN STRACAAllison [facility] [id number] [facility] 2021-05-01 13:00:00 2021-05-01 13:00:00 Outpatient R KAIN JULIEN STRAHIL [facility] [id number] [facility] 2021-05-01 00:00:00 2021-05-01 00:00:00 Orders Only Doctor Unassigned, [place] [facility] 1..840.114 350.1.13.10 4.2.7.2.686 [id number] [facility] 2021-04-30 00:00:00 2021-04-30 00:00:00 Refill Isreal Logan [facility] 1..840.114 350.1.13.10 4.2.7.2.686 [id number] [facility] 2021-04-28 00:00:00 2021-04-28 00:00:00 Refill MassacJanes delarosamcdamon Damon [facility] 1..840.114 350.1.13.10 4.2.7.2.686 [id number] [facility] 2021-04-27 14:45:00 2021-04-27 15:00:00 Laboratory Only Only, Adc Test Kain Julien T [facility] 1..840.114 350.1.13.10 4.2.7.2.686 [id number] [facility] [facility] 2021-04-27 14:45:00 2021-04-27 14:45:00 Outpatient R [facility] [id number] [facility] 2021-04-27 14:45:00 2021-04-27 14:45:00 Outpatient R KAIN JULIEN STRAHIL [facility] [id number] [facility] 2021-04-27 14:45:00 2021-04-27 14:45:00 Outpatient R KAIN JULIEN STRAHIL [facility] [id number] [facility] 2021-04-25 14:00:00 2021-04-25 14:00:00 Outpatient R ZARI MEHTA [facility] [id number] [facility] 2021-04-19 14:00:00 2021-04-19 14:35:40 Outpatient R ISREAL LOGAN [facility] [id number] [facility] 2021-04-19 14:00:00 2021-04-19 14:35:40 Office Visit Isreal Logan [facility] 1.84114 350.1.13.10 4.2.7.2.686 [id number] [facility] 2021-04-19 14:00:00 2021-04-19 14:00:00 [id number] 2021-04-17 00:00:00 2021-04-17 00:00:00 [facility] 1.114 350.1.13.10 4.2.7.2.686 [id number] [facility] 2021-04-16 09:20:00 2021-04-16 09:40:00 Office Visit Behzad Jolly do, [facility] 1.114 350.1.13.10 4.2.7.2.686 [id number] [facility] 2021-04-16 09:20:00 2021-04-16 09:20:00 Outpatient R NAOMIE BECK DO [facility] [id number] [facility] 2021-04-16 08:45:00 2021-04-16 09:00:00 Windows Admin Visit Vtc-Lab Naomie Beck do [facility] 1.114 350.1.13.10 4.2.7.2.686 [id number] [facility] 2021-04-09 00:00:00 2021-04-09 00:00:00 Telephone Isreal Logan [facility] ZHAO?[facility] MEDICAL OFFICE BUILDING 1.84114 350.1.13.10 4.2.7.2.686 [id number] [facility] 2021-03-30 00:00:00 2021-03-30 00:00:00 Orders Only Doctor Unassigned, [place] [facility] 1..840.114 350.1.13.10 4.2.7.2.686 [id number] [facility] 2021-03-29 17:01:51 2021-03-29 17:11:33 Windows Admin Visit Lab, Meng - Hans PiedraMassacIsreal delarosa [facility] MED[facility] OFF[facility] BU[facility] 1..840.114 350.1.13.10 4.2.7.2.686 [id number] [facility] 2021-03-29 16:00:00 2021-03-29 17:03:58 Outpatient R DESMONDJANESNILSON [facility] [id number] [facility] 2021-03-29 15:49:02 2021-03-29 17:03:58 Office Visit MassacIsreal delarosa [facility] MED[facility] OFF[facility] BUILD[facility] 1..840.114 350.1.13.10 4.2.7.2.686 [id number] [facility] 2021-03-29 17:00:00 2021-03-29 17:00:00 Outpatient R ISREAL LOGAN [facility] [id number] [facility] 2021-03-29 15:30:00 2021-03-29 15:30:00 Outpatient R RADHA STAHL SHIWAN [facility] [id number] [facility] 2021-03-27 00:00:00 2021-03-27 00:00:00 Telephone DesmondIsreal delarosa [facility] OFF[facility] BU[facility] 1..840.114 350.1.13.10 4.2.7.2.686 [id number] [facility] 2021-03-24 00:00:00 2021-03-24 00:00:00 Refill Isreal Logan [facility] MEDICAL OFFICE BUILDING 1.2840.114 350.1.13.10 4.2.7.2.686 [id number] 044 [id number] [facility] 2021-03-20 00:00:00 2021-03-20 00:00:00 Telephone Isreal Logan [facility] MEDICAL OFFICE BUILDING 1.2840.114 350.1.13.10 4.2.7.2.686 [id number] 044 [id number] [facility] 2021-03-19 00:00:00 2021-03-19 00:00:00 Telephone Isreal Logan [facility] MEDICAL OFFICE BUILDING 1..114 350.1.13.10 4.2.7.2.686 [id number] 044 [id number] [facility] 2021-03-16 00:00:00 2021-03-16 00:00:00 Telephone Naomie Beck do [facility] 1.2.114 350.1.13.10 4.2.7.2.686 [id number] [facility] 2021-03-15 14:47:13 2021-03-15 23:59:00 Outpatient R RADHA STAHL SHIMALupe [facility] [id number] [facility] 2021-03-15 14:47:13 2021-03-15 23:59:00 Hospital Encounter Radha Stahl [facility] 1.84.114 350.1.13.10 4.2.7.2.686 [id number] [facility] 2021-03-15 00:00:00 2021-03-15 00:00:00 Refill Naomie Beck do [facility] 1.2.840.114 350.1.13.10 4.2.7.2.686 [id number] [facility] 2021-03-14 00:00:00 2021-03-14 00:00:00 Refill Isreal Logan [facility] MED[facility] OFF[facility] BUILDING 1.2840.114 350.1.13.10 4.2.7.2.686 [id number] 044 [id number] [facility] 2021-03-13 00:00:00 2021-03-13 00:00:00 Telephone Isreal Logan [facility] MEDICAL OFFICE BUILDING 1.20.114 350.1.13.10 4.2.7.2.686 [id number] 044 [id number] [facility] 2021-02-27 00:00:00 2021-02-27 00:00:00 Refill Isreal [facility] MED[facility] OFF[facility] BUILD[facility] 1.0.114 350.1.13.10 4.2.7.2.686 [id number] 044 [id number] [facility] 2021-02-12 09:42:17 2021-02-12 09:57:17 Windows Admin Visit [facility] Zari Mehta [facility] 1..114 350.1.13.10 4.2.7.2.686 [id number] [facility] 2021-02-12 08:54:51 2021-02-12 09:24:51 Office Visit Zari Mehta [facility] 1..114 350.1.13.10 4.2.7.2.686 [id number] [facility] 2021-02-12 09:00:00 2021-02-12 09:00:00 Outpatient R ZARI MEHTA [facility] [id number] [facility] 2021-02-12 09:00:00 2021-02-12 09:00:00 Outpatient R ZARI MEHTA [facility] [id number] [facility] 2021-02-12 09:00:00 2021-02-12 09:00:00 Outpatient R ZARI MEHTA [facility] [id number] [facility] 2021-02-03 00:00:00 2021-02-03 00:00:00 RefIsreal Burnett A [facility] Zhao?Steph [facility] Building 1..840.114 350.1.13.10 4.2.7.2.686 [id number] [facility] 2021-01-22 08:00:00 2021-01-22 08:00:00 Outpatient R NAOMIE BECK DO [facility] [id number] [facility] 2021-01-22 00:00:00 2021-01-22 00:00:00 Telephone Parminder Rueda [facility] 1..840.114 350.1.13.10 4.2.7.2.686 [id number] [facility] 2021-01-18 10:30:00 2021-01-18 11:11:44 Outpatient R RADHA STAHL SHIWAN [facility] [id number] [facility] 2021-01-18 10:30:00 2021-01-18 11:11:44 Outpatient R RADHA STAHL SHIWAN [facility] [id number] [facility] 2021-01-18 10:21:37 2021-01-18 11:11:44 Office Visit Radha Stahl [facility] 1..840.114 350.1.13.10 4.2.7.2.686 [id number] [facility] 2021-01-12 00:00:00 2021-01-12 00:00:00 Refill Isreal Logan [facility] Building 1.840.114 350.1.13.10 4.2.7.2.686 [id number] [facility] 2021-01-12 00:00:00 2021-01-12 00:00:00 Telephone Will dunbar, Na[facility]ie Andrade [facility] 1.84.114 350.1.13.10 4.2.7.2.686 [id number] [facility] 2021-01-12 00:00:00 2021-01-12 00:00:00 Orders Only Doctor Unassigned, [place] [facility] 1.840.114 350.1.13.10 4.2.7.2.686 [id number] [facility] 2021-01-09 00:00:00 2021-01-09 00:00:00 Refill MassacIsreal delarosa [facility] Medical [facility] Building 1.840.114 350.1.13.10 4.2.7.2.686 [id number] [facility] 2020-12-29 13:40:00 2020-12-29 13:59:22 Outpatient R TOMEKA HOYOS [facility] [id number] [facility] 2020-12-29 13:36:44 2020-12-29 13:59:22 [facility] 1.840.114 350.1.13.10 4.2.7.2.686 [id number] [facility] 2020-12-29 12:40:00 2020-12-29 12:40:00 Outpatient BRAN SOTO [facility] [id number] [facility] 2020-12-29 12:34:50 2020-12-29 12:35:03 Imm/Inj Visit Nurse, Victoria Blanco ImmunizBran Kenney [facility] 1.114 350.1.13.10 4.2.7.2.686 [id number] [facility] 2020-12-11 14:30:24 2020-12-11 23:59:00 Outpatient R DESMOND JANESDAMON [facility] [id number] [facility] 2020-12-11 14:30:00 2020-12-11 23:59:00 Hospital Encounter Massac, Isreal Damon [facility] 1.114 350.1.13.10 4.2.7.2.686 [id number] [facility] 2020-11-30 07:39:24 2020-11-30 09:31:06 Office Visit Parminder Rueda Muhammad A [facility] 1.114 350.1.13.10 4.2.7.2.686 [id number] [facility] 2020-11-30 08:00:00 2020-11-30 08:00:00 Outpatient R KATARZYNA COBURN [facility] [id number] [facility] 2020-11-30 00:00:00 2020-11-30 00:00:00 Orders Only Doctor Unassigned, [place] [facility] .114 350.1.13.10 4.2.7.2.686 [id number] [facility] 2020-11-28 00:00:00 2020-11-28 00:00:00 Telephone Katarzyna Coburn [facility] 1.2.840.114 350.1.13.10 4.2.7.2.686 [id number] [facility] 2020-11-21 17:44:05 2020-11-21 23:59:00 Hospital Encounter [facility] 1.2.840.114 350.1.13.10 4.2.7.2.686 [id number] [facility] 2020-11-21 17:43:47 2020-11-21 17:43:47 Hospital Encounter [facility] 1.2.840.114 350.1.13.10 4.2.7.2.686 [id number] [facility] 2020-11-21 17:43:47 2020-11-21 17:43:47 Outpatient R [facility] [id number] [facility] 2020-11-21 17:43:47 2020-11-21 17:43:47 Outpatient R [facility]AND [facility] [id number] [facility] 2020-11-21 17:43:28 2020-11-21 17:43:28 Hospital Encounter [facility] 1.2.840.114 350.1.13.10 4.2.7.2.686 [id number] [facility] 2020-11-21 16:46:28 2020-11-21 17:25:39 Urgent Care Leland Machothor Garcia [facility] Office Building One 1.2.840.114 350.1.13.10 4.2.7.2.686 [id number] [id number] [facility] 2020-11-21 15:58:15 2020-11-21 16:31:56 Office Visit Jasmyne [facility] nal Building 1.2.840.114 350.1.13.10 4.2.7.2.686 [id number] [facility] 2020-11-21 16:00:00 2020-11-21 16:00:00 Outpatient R ROPERESTEFANIAEL [facility] [id number] [facility] 2020-11-14 13:00:00 2020-11-14 13:00:00 Outpatient RAFAELA BLOUNT [facility] [id number] [facility] 2020-11-09 00:00:00 2020-11-09 00:00:00 Outpatient R ISREAL LOGAN [facility] [id number] [facility] 2020-11-07 07:20:00 2020-11-07 10:19:00 Hospital Encounter Jl Jasmyne [facility] 1.840.114 350.1.13.10 4.2.7.2.686 [id number] [facility] 2020-11-07 08:30:00 2020-11-07 09:25:00 Surgery RoperJasmyne lucas [facility] 1.84.114 350.1.13.10 4.2.7.2.686 [id number] [facility] 2020-11-07 00:00:00 2020-11-07 00:00:00 Orders Only Doctor Unassigned, [place] [facility] 1.0.114 350.1.13.10 4.2.7.2.686 [id number] [facility] 2020-11-06 08:45:00 2020-11-06 08:45:00 Outpatient R JASMYNE ROPER [facility] [id number] [facility] 2020-11-03 00:00:00 2020-11-03 00:00:00 Telephone Isreal Logan [facility] Office [facility] One 1.840.114 350.1.13.10 4.2.7.2.686 [id number] [facility] 2020-11-02 10:44:38 2020-11-02 12:04:09 Office Visit Isreal Logan [facility] Office Building One 1.114 350.1.13.10 4.2.7.2.686 [id number] 044 [id number] [facility] 2020-11-02 11:40:34 2020-11-02 12:00:34 Windows Admin Visit Lab, Adc Fam Pob I Isreal Logan [facility] Office Building One 1.114 350.1.13.10 4.2.7.2.686 [id number] [facility] 2020-11-02 10:45:00 2020-11-02 10:45:00 Outpatient R DESMOND ISREAL [facility] [id number] [facility] 2020-10-26 12:56:19 2020-10-26 13:50:38 Office Visit Jasmyne Roper [facility] Building 1..114 350.1.13.10 4.2.7.2.686 [id number] [facility] 2020-10-26 13:00:00 2020-10-26 13:00:00 Outpatient R JASMYNE ROPER [facility] [id number] [facility] 2020-10-26 00:00:00 2020-10-26 00:00:00 Prep For Surgery Brenda Raphael [facility] Building 1..114 350.1.13.10 4.2.7.2.686 [id number] [facility] 2020-09-28 13:52:52 2020-09-28 14:52:50 Office Visit Gian Appiah [facility] Office Building One 1.840.114 350.1.13.10 4.2.7.2.686 [id number] [facility] 2020-09-28 14:00:00 2020-09-28 14:00:00 Outpatient R GIAN APPIAH [facility] [id number] [facility] 2020-08-25 00:00:00 2020-08-25 00:00:00 Telephone Isreal Logan [facility] Office Building One 1.840.114 350.1.13.10 4.2.7.2.686 [id number] [facility] 2020-08-24 00:00:00 2020-08-24 00:00:00 Refill Isreal Logan [facility] Office Building One 1.840.114 350.1.13.10 4.2.7.2.686 [id number] [id number] [facility] 2020-08-14 15:30:22 2020-08-14 23:59:00 Hospital Encounter Gian Appiah [facility] 1.2840.114 350.1.13.10 4.2.7.2.686 [id number] [facility] 2020-08-14 14:50:07 2020-08-14 15:10:07 Urgent Care Provider, [facility] 1.840.114 350.1.13.10 4.2.7.2.686 [id number] [facility] 2020-08-14 15:00:00 2020-08-14 15:00:00 Outpatient R [facility] [id number] [facility] 2020-08-14 00:00:00 2020-08-14 00:00:00 Orders Only Doctor Unassigned, [place] [facility] 1..114 350.1.13.10 4.2.7.2.686 [id number] [facility] 2020-08-04 00:00:00 2020-08-04 00:00:00 Telephone [facility]ie Beck do [facility] 1.114 350.1.13.10 4.2.7.2.686 [id number] [facility] 2020-07-21 08:15:00 2020-07-21 08:15:00 Outpatient R NAOMIE BECK DO [facility] [id number] [facility] 2020-07-21 07:55:44 2020-07-21 08:10:44 Windows Admin Visit Pob, Adc Lab Main Naomie Beck do [facility] 1.114 350.1.13.10 4.2.7.2.686 [id number] [facility] 2020-07-20 07:52:35 2020-07-20 09:06:31 Office Visit Naomie Beck do, Muhammad A [facility] 1.114 350.1.13.10 4.2.7.2.686 [id number] [facility] 2020-07-20 08:00:00 2020-07-20 08:00:00 Outpatient R KATARZYNA COBURN [facility] [id number] [facility] 2020-07-20 00:00:00 2020-07-20 00:00:00 Letter (Out) Doctor Unassigned, [place] [facility] 1..114 350.1.13.10 4.2.7.2.686 [id number] [facility] 2020-07-18 00:00:00 2020-07-18 00:00:00 Telephone [facility] Building 1.284.114 350.1.13.10 4.2.7.2.686 [id number] [facility] 2020-07-17 11:36:23 2020-07-17 11:51:23 Windows Admin Visit Pob, Adc Lab Main [facility] 1.284.114 350.1.13.10 4.2.7.2.686 [id number] [facility] 2020-07-17 11:45:00 2020-07-17 11:45:00 Outpatient R ANSON [facility] [id number] [facility] 2020-07-10 00:00:00 2020-07-10 00:00:00 Telephone Naomie Beck do [facility] 1.114 350.1.13.10 4.2.7.2.686 [id number] [facility] 2020-06-05 09:00:00 2020-06-05 09:00:00 Outpatient R ANSON [facility] [id number] [facility] 2020-06-05 00:00:00 2020-06-05 00:00:00 Refill Naomie Beck do [facility] 1.114 350.1.13.10 4.2.7.2.686 [id number] [facility] 2020-06-01 10:00:14 2020-06-01 11:11:07 Office Visit Naomie Beck do, Muhammad A [facility] 1.2.840.114 350.1.13.10 4.2.7.2.686 [id number] [facility] 2020-06-01 10:00:00 2020-06-01 10:00:00 Outpatient R KATARZYNA COBURN [facility] [id number] [facility] 2020-06-01 08:48:48 2020-06-01 09:03:48 Windows Admin Visit Vtc-Lab Pro Coburnshanita Damon [facility] 1.20.114 350.1.13.10 4.2.7.2.686 [id number] [facility] 2020-05-29 13:30:00 2020-05-29 13:30:00 Outpatient R [facility] [id number] [facility] 2020-05-22 15:54:31 2020-05-22 16:54:31 Windows Admin Visit Pc, Adc [facility] 1.2840.114 350.1.13.10 4.2.7.2.686 [id number] [facility] 2020-05-22 16:00:00 2020-05-22 16:00:00 Outpatient R [facility] [id number] [facility] 2020-05-12 00:00:00 2020-05-12 00:00:00 Refill Soha [facility] Building 1.2840.114 350.1.13.10 4.2.7.2.686 [id number] [facility] 2020-05-09 15:36:13 2020-05-09 16:14:31 [facility] 1.2840.114 350.1.13.10 4.2.7.2.686 [id number] [facility] 2020-05-09 16:00:00 2020-05-09 16:00:00 Outpatient R TOMEKA HOYOS [facility] [id number] [facility] 2020-05-04 12:00:00 2020-05-04 12:00:00 Outpatient R AGUILA, REX [facility] [id number] [facility] 2020-05-01 14:58:17 2020-05-01 16:21:19 Office Visit Russell Logandamon [facility] Office [facility] One 1..840.114 350.1.13.10 4.2.7.2.686 [id number] [facility] 2020-05-01 15:50:40 2020-05-01 16:10:40 Windows Admin Visit Lab, Adc Fam Pob [facility] One 1..840.114 350.1.13.10 4.2.7.2.686 [id number] [facility] 2020-05-01 15:00:00 2020-05-01 15:00:00 Outpatient Matt DESMONDJANESMCDAMON [facility] [id number] [facility] 2020-04-22 00:00:00 2020-04-22 00:00:00 Telephone Brenda Raphael [facility] 1..840.114 350.1.13.10 4.2.7.2.686 [id number] [facility] 2020-04-19 13:49:11 2020-04-19 14:35:45 Office Visit Brenda Raphael [facility] 1..840.114 350.1.13.10 4.2.7.2.686 [id number] [facility] 2020-04-19 14:00:2020-04-19 14:00:00 Outpatient Matt BRENDA RAPHAEL [facility] [id number] [facility] 2020-04-18 00:00:00 2020-04-18 00:00:00 Telephone Naomie Beck do [facility] 1.114 350.1.13.10 4.2.7.2.686 [id number] [facility] 2020-04-17 00:00:00 2020-04-17 00:00:00 Transition of Care [place] Kamilla Webster 1.114 350.1.13.10 4.2.7.2.686 [id number] [facility] 2020-04-13 08:07:00 2020-04-14 13:15:00 Hospital Encounter Regla Cro[facility] 1.114 350.1.13.10 4.2.7.2.686 [id number] [facility] 2020-04-13 08:07:00 2020-04-14 13:15:00 Outpatient MORIS NAVARRO [facility] [id number] [facility] 2020-04-13 00:00:00 2020-04-13 00:00:00 RefAbner Deleon [facility] Office Building One .114 350.1.13.10 4.2.7.2.686 [id number] [facility] 2020-03-16 00:00:00 2020-03-16 00:00:00 Refill Isreal Logan [facility] Office [address] .114 350.1.13.10 4.2.7.2.686 [id number] [id number] [facility] 2020-03-12 00:00:00 2020-03-12 00:00:[address] [facility] Building 1..114 350.1.13.10 4.2.7.2.686 [id number] [facility] 2019-12-01 00:00:00 2019-12-01 00:00:00 RefIsreal Burnett [facility] Office Building One 1.114 350.1.13.10 4.2.7.2.686 [id number] [facility] 2019-11-17 14:40:00 2019-11-17 14:40:00 Outpatient R TOMEKA HOYOS [facility] [id number] [facility] 2019-10-22 15:15:00 2019-10-22 15:15:00 Outpatient R EVER CACERES [facility] [id number] [facility] 2019-10-22 14:59:42 2019-10-22 15:14:42 Office Visit Ever [facility] Savelli [facility]. 1.84.114 350.1.13.10 4.2.7.2.686 [id number] [facility] 2019-10-12 00:00:00 2019-10-12 00:00:00 Telephone Isreal Logan [facility] Office [facility] One 1.114 350.1.13.10 4.2.7.2.686 [id number] [facility] 2019-10-08 00:00:00 2019-10-08 00:00:00 Telephone Isreal Logan [facility] Office Building One 1.114 350.1.13.10 4.2.7.2.686 [id number] [id number] [facility] 2019-10-06 00:00:00 2019-10-06 00:00:[address] [facility] Building 1.114 350.1.13.10 4.2.7.2.686 [id number] [id number] [facility] 2019-10-06 00:00:00 2019-10-06 00:00:00 Telephone Peg Webery [facility] Office Building One 1.114 350.1.13.10 4.2.7.2.686 [id number] [id number] [facility] 2019-10-04 10:26:47 2019-10-04 10:41:47 Windows Admin Visit Lab, Adc Fam Pob I Unknown, Attending [facility] Office Building One 1. 350.1.13.10 4.2.7.2.686 [id number] [facility] 2019-10-04 10:15:00 2019-10-04 10:15:00 Outpatient R UNKNOWN, ATTENDING [facility] [id number] [facility] 2019-09-29 14:15:00 2019-09-29 14:15:00 Outpatient R JUAN FRANCISCO FLORES [facility] [id number] [facility] 2019-09-21 07:55:28 2019-09-24 10:45:31 Telemedici ne Visit Parminder Rueda do, Ann K N [facility] 1.114 350.1.13.10 4.2.7.2.686 [id number] [facility] 2019-09-21 09:00:00 2019-09-21 09:00:00 Outpatient R NAOMIE BECK DO [facility] [id number] [facility] 2019-09-21 00:00:00 2019-09-21 00:00:[address] [facility] 1.114 350.1.13.10 4.2.7.2.686 [id number] [facility] 2019-09-17 09:43:15 2019-09-17 22:48:02 Office Visit Ileana Cates [facility] 1.2.840.114 350.1.13.10 4.2.7.2.686 [id number] [facility] 2019-09-17 11:22:17 2019-09-17 13:47:54 Windows Admin Visit Pcp-Lab Ileana Cates [facility] 1.2.840.114 350.1.13.10 4.2.7.2.686 [id number] [facility] 2019-09-17 10:00:00 2019-09-17 10:00:00 Outpatient R DARRYN [facility] [id number] [facility] 2019-09-16 00:00:00 2019-09-16 00:00:[facility] 1.2840.114 350.1.13.10 4.2.7.2.686 [id number] [id number] [facility] 2019-09-16 00:00:00 2019-09-16 00:00:00 [facility] [place] [facility] 1.2840.114 350.1.13.10 4.2.7.2.686 [id number] [id number] [facility] 2019-09-14 07:56:46 2019-09-14 15:55:43 Telemedici ne Visit Isreal Logan [facility] 1.2.840.114 350.1.13.10 4.2.7.2.686 [id number] [facility] 2019-09-14 15:30:00 2019-09-14 15:30:00 Outpatient R ISREAL LOGAN [facility] [id number] [facility] 2019-09-10 00:00:00 2019-09-10 00:00:00 Transition of Care Luh Mak Kamilla Webster 1.2.840.114 350.1.13.10 4.2.7.2.686 [id number] [facility] 2019-09-07 06:51:10 2019-09-09 15:37:00 Hospital Encounter Anthony Mcnamara, Khurram Mays [facility] 1.2840.114 350.1.13.10 4.2.7.2.686 [id number] [facility] 2019-09-07 06:51:10 2019-09-09 15:37:00 Inpatient X KHURRAM SANCHEZ [facility] [id number] [facility] 2019-09-09 00:00:00 2019-09-09 00:00:00 Telephone Naomie Beck do [facility] 1..114 350.1.13.10 4.2.7.2.686 [id number] [facility] 2019-09-07 00:00:00 2019-09-07 00:00:00 Orders Only Doctor Unassigned, [place] [facility] 1.2840.114 350.1.13.10 4.2.7.2.686 [id number] [id number] [facility] 2019-08-31 00:00:00 2019-08-31 00:00:00 Transition of Care Yuki Ortiz 1.2840.114 350.1.13.10 4.2.7.2.686 [id number] [facility] 2019-08-30 08:15:00 2019-08-30 08:15:00 Outpatient ISREAL SCHWARTZ [facility] [id number] [facility] 2019-08-30 07:05:23 2019-08-30 07:20:23 Telemedici ne Visit Isreal Logan [facility] 1.2.840.114 350.1.13.10 4.2.7.2.686 [id number] [facility] 2019-08-27 13:15:53 2019-08-28 18:40:00 Emergency Cristian [facility] 1.2.840.114 350.1.13.10 4.2.7.2.686 [id number] [facility] 2019-08-27 13:15:53 2019-08-28 18:40:00 Outpatient Christiano MORIS HERNANDEZ [facility] [id number] [facility] 2019-08-27 00:00:00 2019-08-27 00:00:00 Telephone Abner Rivera [facility] 1.2.840.114 350.1.13.10 4.2.7.2.686 [id number] [facility] 2019-08-27 00:00:00 2019-08-27 00:00:00 Orders Only Doctor Unassigned, [place] [facility] 1.2.840.114 350.1.13.10 4.2.7.2.686 [id number] [id number] [facility] 2019-08-25 08:54:41 2019-08-25 10:07:31 Urgent Care Paulo Diallo Pob1, Acute Care Clinic 1.2.840.1 58876.1.1 3.104.2.7 .3.836761 .8 [id number] [facility] 2019-08-25 09:00:00 2019-08-25 09:00:00 Outpatient R PAULO DIALLO [facility] [id number] [facility] 2019-08-25 00:00:00 2019-08-25 00:00:00 Travel 1.2.840.1 24127.1.1 3.104.2.7 .3.530567 .8 1.2.840.114 350.1.13.10 4.2.7.3.698 [id number] [facility] 2019-08-19 07:17:45 2019-08-19 10:01:19 Telemedici ne Visit Desmond Isreal Nelson 1.2.840.1 43041.1.1 3.104.2.7 .3.305884 .8 [id number] [facility] 2019-08-19 09:15:00 2019-08-19 09:15:00 Outpatient R ISREAL LOGAN [facility] [id number] [facility] 2019-08-16 00:00:00 2019-08-16 00:00:00 Telephone Paulo Diallo 1.2.840.1 62789.1.1 3.104.2.7 .3.155849 .8 [id number] [facility] 2019-08-16 00:00:00 2019-08-16 00:00:00 Nurse Triage Mookie Bhagat 1.2.840.1 37063.1.1 3.104.2.7 .3.335146 .8 [id number] [facility] 2019-08-14 00:00:00 2019-08-14 00:00:00 Telephone Mariah Turcios 1.2.840.1 79938.1.1 3.104.2.7 .3.929471 .8 [id number] [facility] 2019-08-14 00:00:00 2019-08-14 00:00:00 Telephone Isreal Logan 1.2.840.1 06256.1.1 3.104.2.7 .3.983149 .8 [id number] [facility] 2019-08-13 14:03:21 2019-08-13 23:59:00 Outpatient PAULO MAYES [facility] RAD [id number] [facility] 2019-08-13 14:03:00 2019-08-13 23:59:00 Hospital Encounter Paulo Diallo 1.2.840.1 10716.1.1 3.104.2.7 .3.602976 .8 [id number] [facility] 2019-08-13 12:51:53 2019-08-13 14:24:15 Urgent Care Breonna Bautistab1, Acute Care Clinic 1.2.840.1 24226.1.1 3.104.2.7 .3.153243 .8 [id number] [facility] 2019-08-13 09:25:40 2019-08-13 10:46:38 Telemedici ne Visit Breonna Bautista, Provider 27 - Adult & Pedi Urgent 1.2.840.1 94856.1.1 3.104.2.7 .3.926837 .8 [id number] [facility] 2019-08-13 00:00:00 2019-08-13 00:00:00 Telephone Pcp, Patient Does Not Have A 1.2.840.1 97364.1.1 3.104.2.7 .3.096999 .8 [id number] [facility] 2019-08-13 00:00:00 2019-08-13 00:00:00 Telephone Erin Madera 1.2.840.1 08081.1.1 3.104.2.7 .3.687207 .8 [id number] [facility] 2019-07-27 08:28:05 2019-07-27 09:25:36 Office Visit Ever Caceres 1.2.840.1 39831.1.1 3.104.2.7 .3.748629 .8 [id number] [facility] 2019-07-27 08:45:00 2019-07-27 08:45:00 Outpatient R EVER CACERES [facility] [id number] [facility] 2019-07-26 14:00:00 2019-07-26 14:00:00 Outpatient R NICKIEVER [facility] [id number] [facility] 2019-07-16 09:17:13 2019-07-16 09:32:13 Windows Admin Visit Katarzyna Coburn, Adc Lab Main 1.0.1 86889.1.1 3.104.2.7 .3.066836 .8 [id number] [facility] 2019-07-16 09:15:00 2019-07-16 09:15:00 Outpatient R KATARZYNA COBURN [facility] [id number] [facility] 2019-07-16 00:00:00 2019-07-16 00:00:00 Orders Only Doctor Unassigned, [place] 1.840.1 98299.1.1 3.104.2.7 .3.944516 .8 [id number] [facility] 2019-06-24 00:00:00 2019-06-24 00:00:00 Refill Isreal Logan A 1.0.1 27377.1.1 3.104.2.7 .3.388515 .8 [id number] [facility] 2019-06-14 08:00:00 2019-06-14 09:39:14 Outpatient R NAOMIE BECK DO [facility] [id number] [facility] 2019-06-14 07:42:14 2019-06-14 09:39:14 Office Visit Naomie Beck do 1.840.1 84910.1.1 3.104.2.7 .3.567404 .8 [id number] [facility] 2019-06-13 00:00:00 2019-06-13 00:00:00 Refill Isreal Logan A 1.840.1 76511.1.1 3.104.2.7 .3.572676 .8 [id number] [facility] 2019-06-08 00:00:00 2019-06-08 00:00:00 Case Management Isreal Logan 1.2.840.1 56989.1.1 3.104.2.7 .3.094836 .8 [id number] [facility] 2019-06-07 00:00:00 2019-06-07 00:00:00 Telephone MassacIsreal delarosa 1.2.840.1 08859.1.1 3.104.2.7 .3.719426 .8 [id number] [facility] 2019-06-03 00:00:00 2019-06-03 00:00:00 Case Management MassacIsreal delarosa 1.2.840.1 34299.1.1 3.104.2.7 .3.611744 .8 [id number] [facility] 2019-06-01 10:51:00 2019-06-01 23:59:00 Hospital Encounter MassacIsreal delarosa 1.2.840.1 53117.1.1 3.104.2.7 .3.626680 .8 [id number] [facility] 2019-05-31 09:02:58 2019-05-31 09:17:58 Windows Admin Visit Isreal Logan, [place] [facility] Main 1.2.840.1 82216.1.1 3.104.2.7 .3.395723 .8 [id number] [facility] 2019-05-31 07:56:06 2019-05-31 08:42:37 Office Visit Desmond Janesnilson Damon 1.2.840.1 45775.1.1 3.104.2.7 .3.098527 .8 [id number] [facility] 2019-05-21 00:00:00 2019-05-21 00:00:00 Refill Isreal Logan [facility] Office Building One 1.0.114 350.1.13.10 4.2.7.2.686 [id number] [facility] 2019-05-14 08:40:42 2019-05-14 11:31:55 Ancillary Visit Gio Olya Lopez Hernandez Timmy Cooper [facility] 1.2840.114 350.1.13.10 4.2.7.2.686 [id number] [facility] 2019-05-13 14:46:00 2019-05-13 23:59:00 Hospital Encounter Zari Mehta [facility] 1.840.114 350.1.13.10 4.2.7.2.686 [id number] [facility] 2019-05-13 00:00:00 2019-05-13 00:00:00 Orders Only Doctor Unassigned, [place] [facility] 1.2840.114 350.1.13.10 4.2.7.2.686 [id number] [facility] 2019-05-07 10:30:00 2019-05-07 11:32:31 Outpatient ZARI CORDOVA [facility] [id number] [facility] 2019-04-30 10:52:18 2019-04-30 23:59:00 Outpatient ISREAL SCHWARTZ [facility] [id number] [facility] 2019-04-12 14:32:54 2019-04-12 23:59:00 Outpatient ISREAL SCHWARTZ [facility] [id number] [facility] 2018-12-31 00:00:00 2018-12-31 00:00:00 Letter (Out) Angelita Leavitt [facility] 1..114 350.1.13.10 4.2.7.2.686 [id number] [facility] 2018-12-25 16:37:53 2018-12-25 16:52:53 Windows Admin Visit 1, Adc Lab Isreal Logan [facility] 1.2.840.114 350.1.13.10 4.2.7.2.686 [id number] [facility] 2018-12-25 15:36:08 2018-12-25 16:25:20 Office Visit Isreal Logan [facility] Office Building One 1.2.840.114 350.1.13.10 4.2.7.2.686 [id number] [facility] 2018-12-25 00:00:00 2018-12-25 00:00:00 Orders Only Doctor Unassigned, [place] [facility] 1.2.840.114 350.1.13.10 4.2.7.2.686 [id number] [facility] 2018-11-16 00:00:00 2018-11-16 00:00:00 Orders Only Doctor Unassigned, [place] [facility] 1.2.840.114 350.1.13.10 4.2.7.2.686 [id number] [facility] Results Test Description Test Time Test Comments Results Result Co mments [facility] [id number] 13:16:13* Test Item Value Reference Range Interpretation Comme nts RVOT Vmean (test code = 5375331617) 0.65 m/s LVOT Vmax/AV Vmax (test code = 7017399271) 0.77 {ratio} Ao Root diam diastole (test code = 2159640035) 31 mm LVOT Vmean (test code = 2210337709) 0.80 m/s PV mn zain (test code = 9640114556) 0.65 m/s MV max zain (test code = 3107250212) 1.02 cm/s TR pk grad (test code = 7385123791) mmHg TAPSE (test code = 1802680646) 20 mm IVC size (test code = 9460766195) 14 mm MV mn zain (test code = 9839115743) 0.729 m/s LV est EF (test code = 8807-0) 61 % MV A pk zain (test code = 5024496087) 0.92 m/s MV PHT (test code = 3003631397) 62 ms MV VTI (test code = 7702445982) 28.9 cm MV E pk zain (test code = 1574168797) 0.94 m/s PV mn grad (test code = 2822862720) mmHg MV pk grad (test code = 6413814609) mmHg AV pk grad (test code = 5195175396) mmHg LV stroke vol (test code = 3214343702) 84.77 ml RVOT VTI (test code = 5484477615) 17.9 cm RVOT pk zain (test code = 2738514249) 1.01 m/s AV VTI (test code = 2340669511) 31.3 cm AV pk zain (test code = 54256-7) 1.62 m/s LVOT VTI (test code = 9118947772) 22.3 cm LVOT pk zain (test code = 1519952672) 1.24 m/s LVOT area (test code = 5955258027) 3.80 cm2 LVOT diam (test code = 8850611820) 22 mm MV DT (test code = 3915637995) 211 ms MV e' lateral zain (test code = 9757448444) 6.85 cm/s MV E/A ratio (test code = 3196342654) PV pk grad (test code = 0500112785) mmHg MV area cont eq (test code = 6230233879) 2.93 cm2 MV area PHT (test code = 3184693920) 3.55 cm2 MV mn grad (test code = 6804056007) mmHg LVOT pk grad (test code = 1957643143) mmHg AV mn grad (test code = 99473-0) mmHg RVOT mn grad (test code = 5186340939) mmHg RVOT pk grad (test code = 8451881849) mmHg MV E/e' septal (test code = 0678494086) TR pk zain (test code = 4239783802) 1.92 m/s AV area pk zain (test code = 5239593148) 2.91 cm2 AV area cont VTI (test code = 1793663792) 2.71 cm2 LVOT mn grad (test code = 3162411037) mmHg AV mn zain (test code = 5139223397) 1.09 m/s LVPWd (test code = 3547621582) 18 mm LA size (test code = 5812185494) 44 mm Ascending aorta (test code = 1461562082) [address] junction (test code = 3742666307) 24 mm IVC prox (test code = 3924527680) 14.1 cm Fractional Shortening 2D (te st code = 7573330173) 32 % LVIDs (test code = 7450245433) 30 mm IVSd (test code = 6559649506) 15 mm LVIDd (test code = 2220679403) 44 mm PV pk zain (test code = 3311548703) 1.02 m/s PV VTI (test code = 8568286) 19.3 cm MV E/e' lateral (test code = 9357821) MV e' septal zain (test code = 7893757) 4.57 cm/s LV ESV 2D (test code = 1029176) 34.72 mL LV EDV 2D (test code = 3088997) 88.16 mL IVSd 2D (test code = 7335018) 15 cm BSA (test code = 2903568726) 2.1 m2 LV stroke vol index (test co de = 21821262) 40.53 ml/m2 LV LVIDd index (test code = 14012014) 21.08 mm/m2 LVIDs index (test code = 86067405) 14.29 mm/m2 LV ESV index 2D (test code = 6606338324) 16.60 ml/m2 LV EDV index 2D (test code = 1192930157) 42.15 ml/m2 LV RWT 2D (test code = 1648977355) LV mass 2D (test code = 0427090327) 307.60 g LV mass index 2D (test code = 6087834032) 147.06 g/m2 LA diam systole Index (test code = 9341527683) 21.04 mm/m2 AV area index (test code = 9171066412) 1.29 cm2/m2 LV stroke vol index (test co de = 9311982303) 40.53 mL/m2 Ao STJ diam I - Aorta BSA (t est code = 5012387232) 11.38 mm/m2 AVAI (Vmax) BSA (test code = 5235063761) 1.39 cm2/m2 Ao Asc diam I BSA (test code = 6669052075) 16.73 mm/m2 MV avg E/e' (test code = 2094759177) AV zain ratio (test code = 3593762121) LV mass size 1 (test code = 5134563495) 307.6 cm RVSP (test code = 7092061) mmHg Est RA pressure (test code = 3120184184) mmHg sPAP (test code = 7781115381) mmHg RAP (test code = 5572299865) mmHg LV biplane EF (test code = 66270-0) 66.2 % LV A2C EF (test code = 273527-4) 75 % LV A4C EF (test code = 726576-4) 53 % LV SI (BP) (test code = 1448002892) 54.12 ml/m2 LV SI (A2C) (test code = 9354984100) 48.23 ml/m2 LV SI (A4C) (test code = 2400732332) 52.70 ml/m2 LV SV (BP) (test code = 6414287357) 113.20 ml LV SI (A2C) (test code = 6033516785) 100.89 ml LV SV (A4C) (test code = 9834036393) 110.23 ml LV ESV BP (test code = 5795782159) 57.89 mL LV ESV index BP (test code = 1115091280) 27.67 mL/m2 LV ESV A2C (test code = 8527292022) 33.72 mL LV ESV index A2C (test code = 8634574074) 16.12 ml/m2 LV EDV BP (test code = 6332762690) 171.09 mL LV ESV A4C (test code = 7964454433) 97.08 mL LV EDV index BP (test code = 3889499819) 81.79 mL/m2 LV ESV index A4C (test code = 2824496098) 46.41 ml/m2 LV EDV A2C (test code = 9340356848) 134.61 mL LV EDV index A2C (test code = 9619089632) LV EDV A4C (test code = 3901997287) 207.31 mL LV EDV index A4C (test code = 3273226338) 99.11 ml/m2 LVLd (A2C) (test code = 3196531499) 87.80 mm LVLd (A4C) (test code = 9918449557) 92.93 mm LVLs (A2C) (test code = 5312899139) 72.10 mm LVLs (A4C) (test code = 4636141060) 82.89 mm Radiology Study observation (narrative) (test code = 59242-8) MARLENE (test code = MARLENE) [facility] Bnsstnr0455-95-73 11:18:36* Test Item Value Reference Range Interpretation Comme nts POC Glu (test code = 97570-6) 106 mg/dL 70-99 H POC Performing Location (abraham t code = 5276998373) ER Lab Interpretation (test cod e = 79271-7) [facility] [id number] 09:46:47* Test Item Value Reference Range Interpretation Comme nts VIT D 25OH (test code = 12267-4) 23 ng/mL 25-80 L MARLENE (test code = MARLENE) Deficiency: <20 ng/mLInsufficiency: 20-24 ng/mLOptimal: 25-80 ng/mL Lab Interpretation (test code = 47181-3) [facility] Stimulating [id number] 22:21:19 * Test Item Value Reference Range Interpretation Comme nts TSH (test code = 8978935508) 1.61 0.45-4.70 Biotin has been reported to cause a negative bias, interpret results relative to patient's use of biotin. Lab Interpretation (test code = 60002-5) Normal [facility] [id number] 22:07:37* Test Item Value Reference Range Interpretation Comme nts FREE T4 (test code = 7510948830) 1.17 ng/dL 0.78-2.20 Lab Interpretation (test cod e = 55490-7) Normal [facility] [id number] 22:07:17* Test Item Value Reference Range Interpretation Comme nts FREE T3 (test code = 9589848542) 3.02 pg/mL 2.77-5.27 Lab Interpretation (test cod e = 33624-4) Normal [facility]cosylated Hemoglobin (A1C)2024-08-03 22:06:26* Test Item Value Reference Range Interpretation Comme nts HGB A1C (test code = 4548-4) 5.7 % 4.0-5.7 MARLENE (test code = MARLENE) Reference RangesNormal: <5.7%Prediabetes: 5.7 - 6.4%Diabetes: > 6.5% Lab Interpretation (test code = 95827-1) Normal [facility]id [facility] (51769)(Total Cholesterol, Triglycerides, HDL)2024-08-03 21:50:31* Test Item Value Reference Range Interpretation Comme nts CHOL (test code = 9177243670) 173 mg/dL 120-200 HDL (test code = 7375092787) 92 mg/dL >=40 HDLC RATIO (test code = 0671428756) 1.9 <=5.0 TRIG (test code = 6636694397) 77 mg/dL 30-170 LDL CHOL (test code = 25313-9) 66 mg/dL <=160 VLDL (test code = 4067487619) 15 mg/dL 5-60 Lab Interpretation (test cod e = 43830-2) Normal [facility]TER[facility] [id number] 00:00:00* Test Item Value Reference Range Interpretation Comme nts DD-cfDNA (External Results) (test code = 5126) 0.50 <=1.0 [facility]ervilleTacrolimus, Wdntc5274-48-99 14:19:47* Test Item Value Reference Range Interpretation Comme nts FK 506 (test code = 0895762707) 3 ng/mL MARLENE (test code = MARLENE) [...] ?(>12 mo) ? ?8-10 Method by: ?[employer]lex, First Aid Nurse i1000 [facility] GLUCOSE (AUTOMATED)2023-07-17 13:44:59* Test Item Value Reference Range Interpretation Comme nts POCT GLU (test code = 5355767069) 283 mg/dL 70-110 H Lab Interpretation (test cod e = 06071-9) Abnormal [facility] GLUCOSE (AUTOMATED)2023-07-17 08:26:29* Test Item Value Reference Range Interpretation Comme nts POCT GLU (test code = 8604366808) 124 mg/dL 70-110 H Lab Interpretation (test cod e = 69464-4) Abnormal [facility] GLUCOSE (AUTOMATED)2023-07-17 04:14:10* Test Item Value Reference Range Interpretation Comme nts POCT GLU (test code = 7152488849) 121 mg/dL 70-110 H Lab Interpretation (test cod e = 09602-2) Abnormal [facility] GLUCOSE (AUTOMATED)2023-07-17 01:25:34* Test Item Value Reference Range Interpretation Comme nts POCT GLU (test code = 1784228767) 128 mg/dL 70-110 H Lab Interpretation (test cod e = 66369-6) Abnormal [facility] GLUCOSE (AUTOMATED)2023-07-16 22:12:39* Test Item Value Reference Range Interpretation Comme nts POCT GLU (test code = 9336752684) 139 mg/dL 70-110 H Lab Interpretation (test cod e = 44910-5) Abnormal [facility] GLUCOSE (AUTOMATED)2023-07-16 16:39:56* Test Item Value Reference Range Interpretation Comme nts POCT GLU (test code = 6105273171) 160 mg/dL 70-110 H Lab Interpretation (test cod e = 89386-7) Abnormal [facility] GLUCOSE (AUTOMATED)2023-07-16 12:34:13* Test Item Value Reference Range Interpretation Comme nts POCT GLU (test code = 3461109059) 143 mg/dL 70-110 H Lab Interpretation (test cod e = 61137-8) Abnormal [facility] GLUCOSE (AUTOMATED)2023-07-16 08:31:41* Test Item Value Reference Range Interpretation Comme nts POCT GLU (test code = 9330527760) 137 mg/dL 70-110 H Lab Interpretation (test cod e = 63096-7) Abnormal [facility] GLUCOSE (AUTOMATED)2023-07-16 04:16:32* Test Item Value Reference Range Interpretation Comme nts POCT GLU (test code = 0299401005) 124 mg/dL 70-110 H Lab Interpretation (test cod e = 16200-5) Abnormal [facility]+COOX+NA+K+GLU+CA2+2023-07-16 04:16:22* Test Item Value Reference Range Interpretation Comme nts PH (test code = 2) 7.32 7.35-7.45 L PCO2 (test code = 8531337096) 37 35-45 PO2 (test code = 5101351726) 109 80-100 H HCO3 (test code = 1951134007) 19 22-26 L BE (test code = 8320213567) -6.9 -3.0-3.0 L THB (test code = 3941143484) 8.2 g/dL 13.5-18.0 LL %O2HB (test code = 3945543916) 96.7 % 94.0-99.0 %COHB ART (test code = 1604227509) 0.6 % 0.0-1.5 %METHB ART (test code = 4608191380) 0.5 % 0.4-1.5 VOL%O2 ART (test code = 4324958558) 11.4 % 15.0-23.0 L QUES NA (test code = 0855365812) 131 mmol/L 135-145 L K+ (test code = 2802654932) 5.4 mmol/L 3.5-5.0 H AC CA IONZ (test code = 3235602307) 5.60 mg/dL 4.50-5.30 H GLUCOSE (test code = 6789620548) 160 mg/dL 70-110 H Lab Interpretation (test cod e = 91249-9) [facility]+K+GLU+CA2+2023-07-16 04:15:02* Test Item Value Reference Range Interpretation Comme nts PH (test code = 2) 7.35 7.35-7.45 PCO2 (test code = 5561064551) 39 35-45 PO2 (test code = 2945628788) 113 80-100 H HCO3 (test code = 9236960548) 21 22-26 L BE (test code = 1271302606) -4.2 -3.0-3.0 L THB (test code = 0849295877) 9.2 g/dL 13.5-18.0 L %O2HB (test code = 4879889905) 97.3 % 94.0-99.0 %COHB ART (test code = 7477782490) 0.5 % 0.0-1.5 %METHB ART (test code = 7507143988) 0.4 % 0.4-1.5 VOL%O2 ART (test code = 2165476502) 12.8 % 15.0-23.0 L QUES NA (test code = 8042278509) 132 mmol/L 135-145 L K+ (test code = 6088567345) 5.3 mmol/L 3.5-5.0 H AC CA IONZ (test code = 7458915491) 5.00 mg/dL 4.50-5.30 GLUCOSE (test code = 3224923807) 173 mg/dL 70-110 H Lab Interpretation (test cod e = 71402-9) Abnormal [facility] GLUCOSE (AUTOMATED)2023-07-15 21:19:06* Test Item Value Reference Range Interpretation Comme nts POCT GLU (test code = 0759944031) 148 mg/dL 70-110 H Lab Interpretation (test cod e = 72797-3) Abnormal [facility] GLUCOSE (AUTOMATED)2023-07-15 16:51:52* Test Item Value Reference Range Interpretation Comme nts POCT GLU (test code = 2971126115) 120 mg/dL 70-110 H Lab Interpretation (test cod e = 81665-0) Abnormal [facility] GLUCOSE (AUTOMATED)2023-07-15 12:40:22* Test Item Value Reference Range Interpretation Comme nts POCT GLU (test code = 3927039983) 118 mg/dL 70-110 H Lab Interpretation (test cod e = 80298-2) Abnormal [facility] GLUCOSE (AUTOMATED)2023-07-15 09:40:41* Test Item Value Reference Range Interpretation Comme nts POCT GLU (test code = 6042620248) 116 mg/dL 70-110 H Lab Interpretation (test cod e = 69749-2) Abnormal [facility] GLUCOSE (AUTOMATED)2023-07-15 05:19:36* Test Item Value Reference Range Interpretation Comme nts POCT GLU (test code = 2658274598) 134 mg/dL 70-110 H Lab Interpretation (test cod e = 20341-2) Abnormal [facility] GLUCOSE (AUTOMATED)2023-07-15 02:23:31* Test Item Value Reference Range Interpretation Comme nts POCT GLU (test code = [id number]) 144 mg/dL 70-110 H Lab Interpretation (test cod e = 40379-8) [facility]K+GLU+CA2+2023-07-15 01:48:24* Test Item Value Reference Range Interpretation Comme nts PH (test code = 2) 7.40 7.35-7.45 PCO2 (test code = 6199787669) 32 35-45 L PO2 (test code = 2638561436) 463 80-100 H HCO3 (test code = 0332554722) 19 22-26 L BE (test code = 8958663443) -5.2 -3.0-3.0 L THB (test code = 9170519126) 7.4 g/dL 13.5-18.0 LL %O2HB (test code = 4414277966) 98.3 % 94.0-99.0 %COHB ART (test code = 3500944422) 0.6 % 0.0-1.5 %METHB ART (test code = 3167823059) 0.7 % 0.4-1.5 VOL%O2 ART (test code = 9613705366) 11.6 % 15.0-23.0 L QUES NA (test code = 9304792573) 132 mmol/L 135-145 L K+ (test code = 4287319493) 4.9 mmol/L 3.5-5.0 AC CA IONZ (test code = 9527278203) 4.70 mg/dL 4.50-5.30 GLUCOSE (test code = 7646718842) 204 mg/dL 70-110 H Lab Interpretation (test cod e = 81471-3) Abnormal [facility] GLUCOSE (AUTOMATED)2023-07-14 21:03:15* Test Item Value Reference Range Interpretation Comme [facility] POCT GLU (test code = 3576073163) 111 mg/dL 70-110 H Notified Provide r Lab Interpretation (test code = 45236-5) Abnormal [facility] GLUCOSE (AUTOMATED)2023-07-14 16:46:08* Test Item Value Reference Range Interpretation Comme [facility] POCT GLU (test code = 3066525280) 136 mg/dL 70-110 H Notified Provide r Lab Interpretation (test code = 54160-7) Abnormal [facility] GLUCOSE (AUTOMATED)2023-07-14 12:35:49* Test Item Value Reference Range Interpretation Comme [facility] POCT GLU (test code = 3692950310) 101 mg/dL 70-110 Notified Provide r Lab Interpretation (test code = 04573-9) Normal [facility] GLUCOSE (AUTOMATED)2023-07-14 09:31:13* Test Item Value Reference Range Interpretation Comme nts POCT GLU (test code = 6923094663) 118 mg/dL 70-110 H Notified Provide r Lab Interpretation (test code = 75494-0) Abnormal [facility] GLUCOSE (AUTOMATED)2023-07-14 05:06:14* Test Item Value Reference Range Interpretation Comme nts POCT GLU (test code = 5036798320) 118 mg/dL 70-110 H Notified Provide r Lab Interpretation (test code = 49472-7) Abnormal [facility] GLUCOSE (AUTOMATED)2023-07-14 02:38:00* Test Item Value Reference Range Interpretation Comme nts POCT GLU (test code = 3541740753) 124 mg/dL 70-110 H Notified Provide r Lab Interpretation (test code = 64930-2) Abnormal [facility] GLUCOSE (AUTOMATED)2023-07-13 20:42:13* Test Item Value Reference Range Interpretation Comme nts POCT GLU (test code = 3356985697) 158 mg/dL 70-110 H Notified Provide r Lab Interpretation (test code = 12771-7) Abnormal [facility] GLUCOSE (AUTOMATED)2023-07-13 16:58:06* Test Item Value Reference Range Interpretation Comme nts POCT GLU (test code = 6540349149) 129 mg/dL 70-110 H Notified Provide r Lab Interpretation (test code = 00880-4) Abnormal [facility] 2 Views - Upright ( PA, [...] and soft tissues: Sternotomy wires in satisfactory alignment.[facility] GLUCOSE (AUTOMATED)2023-07-13 13:07:47* Test Item Value Reference Range Interpretation Comme nts POCT GLU (test code = 1859081326) 120 mg/dL 70-110 H Notified Provide r Lab Interpretation (test code = 72923-0) Abnormal [facility] GLUCOSE (AUTOMATED)2023-07-13 08:12:33* Test Item Value Reference Range Interpretation Comme nts POCT GLU (test code = 2713315189) 118 mg/dL 70-110 H Lab Interpretation (test cod e = 84567-9) Abnormal [facility] GLUCOSE (AUTOMATED)2023-07-13 04:12:27* Test Item Value Reference Range Interpretation Comme nts POCT GLU (test code = 2237611092) 142 mg/dL 70-110 H Lab Interpretation (test cod e = 36910-3) Abnormal [facility] GLUCOSE (AUTOMATED)2023-07-13 00:36:22* Test Item Value Reference Range Interpretation Comme nts POCT GLU (test code = 8522312813) 158 mg/dL 70-110 H Lab Interpretation (test cod e = 05994-4) Abnormal [facility] GLUCOSE (AUTOMATED)2023-07-12 21:31:45* Test Item Value Reference Range Interpretation Comme nts POCT GLU (test code = 0556312556) 219 mg/dL 70-110 H Lab Interpretation (test cod e = 61504-5) Abnormal [facility] GLUCOSE (AUTOMATED)2023-07-12 16:50:05* Test Item Value Reference Range Interpretation Comme nts POCT GLU (test code = 5533380006) 132 mg/dL 70-110 H Lab Interpretation (test cod e = 13830-3) [facility]ac[facility], [id number] 15:22:20* Test Item Value Reference Range Interpretation Comme nts FK 506 (test code = 6080711652) 3 ng/mL MARLENE (test code = MARLENE) [...] ?(>12 mo) ? ?8-10 Method by: ?Chemiflex, First Aid Nurse i1000 [facility] GLUCOSE (AUT[facility]ATED)2023-07-12 12:51:54* Test Item Value Reference Range Interpretation Comme nts POCT GLU (test code = 0823009117) 115 mg/dL 70-110 H Lab Interpretation (test cod e = 76486-2) [facility] Met[facility] (NA, K, CL, CO2, GLUCOSE, BUN, CREATININE, CA) on POD # 11:12:50* Test Item Value Reference Range Interpretation Comme nts NA (test code = 7891998440) 139 mmol/L 135-145 K (test code = 1011648595) 4.8 mmol/L 3.5-5.0 CL (test code = 9544412765) 114 mmol/L 98-108 H CO2 TOTAL (test code = 0271972514) 19 mmol/L 23-31 L AGAP (test code = 5757840969) 6 2-16 BUN (test code = 0431317545) 33 mg/dL 7-23 H GLUCOSE (test code = 3389227118) 114 mg/dL 70-110 H CREATININE (test code = 2160-0) 1.53 mg/dL 0.60-1.25 H CALCIUM (test code = 2357678891) 9.2 mg/dL 8.6-10.6 eGFR (test code = 99325-9) 49.5 mL/min/1.73m2 CKD-EPI eGFR (2020). Assuming creatinine has been stable day-to-day for at least three months, the eGFR indicates Category G3a (45 - 59 mL/min/1.73 m2) Lab Interpretation (test code = 32475-6) [facility]normal [facility] with Differential on POD # 10:41:56* Test [...] 33.9 g/dL 31.2-35.0 RDW-SD (test code = 67862-9) 55.2 fL 38.5-51.6 H RDW-CV (test code = 788-0) 16.8 % 12.1-15.4 H PLT (test code = 777-3) 139 150-328 L MPV (test code = 23326-7) 11.3 fL 9.8-13.0 IPF % (test code = 1862988522) 4.4 % 1.2-10.7 Platelet count measured by fluorescence method. NRBC/100 WBC (test code = 6912672292) 1.3 0.0-10.0 NRBC x10^3 (test code = 1457540931) 0.11 See_Comment [Automated messa ge] The system which generated this result transmitted reference range: 10*3/?L. The reference range was not used to interpret this result as normal/abnormal. GRAN MAT (NEUT) % (test code = 770-8) 74.1 % IMM GRAN % (test code = 6866267079) 1.10 % LYMPH % (test code = 736-9) 9.4 % MONO % (test code = 5905-5) 13.2 % EOS % (test code = 713-8) 1.7 % BASO % (test code = 706-2) 0.5 % GRAN MAT x10^3(ANC) (test code = 9324498678) 6.12 10*3/uL 1.99-6.95 IMM GRAN x10^3 (test code = 5674030382) 0.09 10*3/uL 0.00-0.06 H LYMPH x10^3 (test code = 731-0) 0.78 10*3/uL 1.09-3.23 L MONO x10^3 (test code = 742-7) 1.09 10*3/uL 0.36-1.02 H EOS x10^3 (test code = 711-2) 0.14 10*3/uL 0.06-0.53 BASO x10^3 (test code = 704-7) 0.04 10*3/uL 0.01-0.09 Lab Interpretation (test code = 89341-0) Abnormal [facility] GLUCOSE (AUTOMATED)2023-07-12 09:56:57* Test Item Value Reference Range Interpretation Comme nts POCT GLU (test code = 0908682168) 128 mg/dL 70-110 H Lab Interpretation (test cod e = 00552-0) Abnormal [facility] GLUCOSE (AUTOMATED)2023-07-12 05:12:19* Test Item Value Reference Range Interpretation Comme nts POCT GLU (test code = 3430627316) 127 mg/dL 70-110 H Lab Interpretation (test cod e = 43701-0) Abnormal [facility] GLUCOSE (AUTOMATED)2023-07-12 01:41:12* Test Item Value Reference Range Interpretation Comme nts POCT GLU (test code = 5419800468) 150 mg/dL 70-110 H Lab Interpretation (test cod e = 30440-2) Abnormal [facility] Metabolic Panel (NA, K, CL, CO2, GLUCOSE, BUN, CREATININE, CA)2023-07-12 00:28:31* Test Item Value Reference Range Interpretation Comme nts NA (test code = 4936824404) 136 mmol/L 135-145 K (test code = 0206724308) 4.4 mmol/L 3.5-5.0 CL (test code = 2268472311) 114 mmol/L 98-108 H CO2 TOTAL (test code = 5396490256) 21 mmol/L 23-31 L AGAP (test code = 2586494795) 1 2-16 L BUN (test code = 7457332402) 33 mg/dL 7-23 H GLUCOSE (test code = 0657475861) 113 mg/dL 70-110 H CREATININE (test code = 2160-0) 1.50 mg/dL 0.60-1.25 H CALCIUM (test code = 5172190359) 8.7 mg/dL 8.6-10.6 eGFR (test code = 87743-9) 50.7 mL/min/1.73m2 CKD-EPI eGFR (2020). Assuming creatinine has been stable day-to-day for at least three months, the eGFR indicates Category G3a (45 - 59 mL/min/1.73 m2) Lab Interpretation (test code = 46184-5) [facility]normal [facility]esium2024-03-16 00:28:31* Test Item Value Reference Range Interpretation Comme nts MAGNESIUM (test code = 8213069971) 2.0 mg/dL 1.7-2.4 Lab Interpretation (test cod e = 19369-3) Normal [facility] GLUCOSE (AUTOMATED)2023-07-11 21:19:15* Test Item Value Reference Range Interpretation Comme nts POCT GLU (test code = 5856607941) 136 mg/dL 70-110 H Lab Interpretation (test cod e = 19809-6) Abnormal [facility] GLUCOSE (AUTOMATED)2023-07-11 20:39:17* Test Item Value Reference Range Interpretation Comme nts POCT GLU (test code = 3124169490) 150 mg/dL 70-110 H Notified Provide r Lab Interpretation (test code = 54076-4) Abnormal [facility] GLUCOSE (AUTOMATED)2023-07-11 18:11:36* Test Item Value Reference Range Interpretation Comme nts POCT GLU (test code = 0819128676) 143 mg/dL 70-110 H Lab Interpretation (test cod e = 54389-5) Abnormal [facility] with Ajbz2414-15-34 17:03:12* Test Item Value Reference Range Interpretation [...] 32.9 g/dL 31.2-35.0 RDW-SD (test code = 90127-5) 55.8 fL 38.5-51.6 H RDW-CV (test code = 788-0) 16.2 % 12.1-15.4 H PLT (test code = 777-3) 104 150-328 L MPV (test code = 72765-8) 11.2 fL 9.8-13.0 IPF % (test code = 6133416187) 4.6 % 1.2-10.7 Platelet count measured by fluorescence method. NRBC/100 WBC (test code = 3820435812) 0.0 0.0-10.0 NRBC x10^3 (test code = 2800294129) See_Comment [Automated [employer]] The system which generated this result transmitted reference range: 10*3/?L. The reference range was not used to interpret this result as normal/abnormal. GRAN MAT (NEUT) % (test code = 770-8) 79.5 % IMM GRAN % (test code = 7601493875) 1.00 % LYMPH % (test code = 736-9) 5.4 % MONO % (test code = 5905-5) 13.5 % EOS % (test code = 713-8) 0.5 % BASO % (test code = 706-2) 0.1 % GRAN MAT x10^3(ANC) (test code = 3796193758) 7.36 10*3/uL 1.99-6.95 H IMM GRAN x10^3 (test code = 2677493583) 0.09 10*3/uL 0.00-0.06 H LYMPH x10^3 (test code = 731-0) 0.50 10*3/uL 1.09-3.23 L MONO x10^3 (test code = 742-7) 1.25 10*3/uL 0.36-1.02 H EOS x10^3 (test code = 711-2) 0.05 10*3/uL 0.06-0.53 L BASO x10^3 (test code = 704-7) 0.01-0.09 Lab Interpretation (test code = 19855-2) [facility]normal [facility]Tacrol[facility], [id number] 14:08:08* Test Item Value Reference Range Interpretation Comme nts FK 506 (test code = 7247147318) 4 ng/mL MARLENE (test code = MARLENE) [...] ?(>12 mo) ? ?8-10 Method by: ?Chemiflex, First Aid Nurse i1000 [facility]ervillePrepar Packed RBC (in units), 1 Units 2023-07-11 14:05:53* Test Item Value Reference Range Interpretation Comme nts Cross Match Result (test code = 4409) Compatible ISBT Blood Type Code (test code = 130579) 7300 Unit Blood Type (test code = 4410) B Pos Unit Number (test code = 4411) [id number] Blood Expiration Date & Time (test code = 020711) [id number] Status Information (test code = 4412) Issued Product Identification (test code = 4413) Red Blood Cells Product Code (test code = 4414) [id number] Performed at [facility] B Laboratory Services - [facility] Blood [address] [place] [id number] Free: [phone] No. [id number] [facility]POMN GLUCOSE (AUTOMATED)2023-07-11 13:00:59* Test Item Value Reference Range Interpretation Comme nts POCT GLU (test code = 0829199494) 134 mg/dL 70-110 H Lab Interpretation (test cod e = 06685-1) Abnormal [facility]ervilleType and Screen - ONCE FAXJ2023-01-23 12:14:00 * Test Item Value Reference Range Interpretation Comme nts ABO & RH (test code = 20) B POSITIVE IAT (test code = 1185) Negative [facility]ervilleCbc without Hkoq4070-68-78 11:58:13* Test Item Value Reference Range Interpretation [...] 97 150-328 L MPV (test code = 39179-8) 11.8 fL 9.8-13.0 RDW-CV (test code = 788-0) 17.2 % 12.1-15.4 H RDW-SD (test code = 21879-3) 58.2 fL 38.5-51.6 H NRBC x10^3 (test code = 9019149487) 0.02 See_Comment [Automated messa ge] The system which generated this result transmitted reference range: 10*3/?L. The reference range was not used to interpret this result as normal/abnormal. NRBC/100 WBC (test code = 6646259761) 0.2 0.0-10.0 IPF % (test code = 2210407739) 5.3 % 1.2-10.7 Platelet count measured by fluorescence method. Lab Interpretation (test code = 68800-0) Abnormal [facility]ervillePhosphorus2024-03-15 11:19:28* Test Item Value Reference Range Interpretation Comme nts PHOSPHORUS (test code = 8038081108) 3.2 mg/dL 2.5-5.0 Lab Interpretation (test cod e = 54287-2) Normal [facility]ervilleMagnesium2024-03-15 11:19:27* Test Item Value Reference Range Interpretation Comme nts MAGNESIUM (test code = 4476606204) 2.3 mg/dL 1.7-2.4 Lab Interpretation (test cod e = 34460-3) Normal [facility] Metabolic Panel (NA, K, CL, CO2, GLUCOSE, BUN, CREATININE, CA)2023-07-11 11:19:27* Test Item Value Reference Range Interpretation Comme nts NA (test code = 3124101003) 141 mmol/L 135-145 K (test code = 4427408457) 4.8 mmol/L 3.5-5.0 CL (test code = 6431484792) 116 mmol/L 98-108 H CO2 TOTAL (test code = 0403586394) 22 mmol/L 23-31 L AGAP (test code = 5608026786) 3 2-16 BUN (test code = 0620503863) 32 mg/dL 7-23 H GLUCOSE (test code = 8512848236) 128 mg/dL 70-110 H CREATININE (test code = 2160-0) 1.49 mg/dL 0.60-1.25 H CALCIUM (test code = 6096421175) 8.8 mg/dL 8.6-10.6 eGFR (test code = 77240-4) 51.1 mL/min/1.73m2 CKD-EPI eGFR (2020). Assuming creatinine has been stable day-to-day for at least three months, the eGFR indicates Category G3a (45 - 59 mL/min/1.73 m2) Lab Interpretation (test code = 45092-7) Abnormal [facility]ervilleCb without Uzvl1105-87-56 11:13:27* Test Item Value Reference Range Interpretation [...] 98 150-328 L MPV (test code = 58015-6) 11.5 fL 9.8-13.0 RDW-CV (test code = 788-0) 17.3 % 12.1-15.4 H RDW-SD (test code = 87766-5) 59.7 fL 38.5-51.6 H NRBC x10^3 (test code = 1410348640) See_Comment [Automated [employer]] The system which generated this result transmitted reference range: 10*3/?L. The reference range was not used to interpret this result as normal/abnormal. NRBC/100 WBC (test code = 2487904757) 0.0 0.0-10.0 IPF % (test code = 4420728265) 5.0 % 1.2-10.7 Platelet count measured by fluorescence method. Lab Interpretation (test code = 22210-3) Abnormal [facility] GLUCOSE (AUTOMATED)2023-07-11 10:18:31* Test Item Value Reference Range Interpretation Comme nts POCT GLU (test code = 6674278658) 146 mg/dL 70-110 H Lab Interpretation (test cod e = 45103-0) Abnormal [facility] GLUCOSE (AUTOMATED)2023-07-11 07:12:03* Test Item Value Reference Range Interpretation Comme nts POCT GLU (test code = 6142098343) 154 mg/dL 70-110 H Lab Interpretation (test cod e = 19248-8) Abnormal [facility] GLUCOSE (AUTOMATED)2023-07-11 02:00:04* Test Item Value Reference Range Interpretation Comme nts POCT GLU (test code = 2423445849) 149 mg/dL 70-110 H Lab Interpretation (test cod e = 47351-2) Abnormal [facility] GLUCOSE (AUTOMATED)2023-07-10 22:15:05* Test Item Value Reference Range Interpretation Comme nts POCT GLU (test code = 8222044296) 145 mg/dL 70-110 H Notified Provide r Lab Interpretation (test code = 84561-3) [facility]normal [facility]ervilleXR [id number] 18:08:31EXAM: XR KUB HISTORY: 68 years-old Male; Abdominal pain/distension . TECHNIQUE: Frontal views of the abdomen and pelvis COMPARISON: KUB 07/08/[address] abdomen pelvis 04/15/2022 [facility] GLUCOSE (AUTOMATED)2023-07-10 16:43:45* Test Item Value Reference Range Interpretation Comme nts POCT GLU (test code = 1194317630) 140 mg/dL 70-110 H Notified Provide r Lab Interpretation (test code = 61343-8) Abnormal [facility] GLUCOSE (AUTOMATED)2023-07-10 12:57:45* Test Item Value Reference Range Interpretation Comme nts POCT GLU (test code = 2009936506) 157 mg/dL 70-110 H Lab Interpretation (test cod e = 98378-2) [facility]normal [facility]ervilleCbc without Vuxm2952-86-43 10:09:51* Test Item Value Reference Range Interpretation [...] 116 150-328 L MPV (test code = 63005-7) 11.6 fL 9.8-13.0 RDW-CV (test code = 788-0) 17.9 % 12.1-15.4 H RDW-SD (test code = 86023-1) 57.2 fL 38.5-51.6 H NRBC x10^3 (test code = 4677530889) 0.02 See_Comment [Automated [employer]] The system which generated this result transmitted reference range: 10*3/?L. The reference range was not used to interpret this result as normal/abnormal. NRBC/100 WBC (test code = 1501789817) 0.2 0.0-10.0 IPF % (test code = 5480270254) 6.0 % 1.2-10.7 Platelet count measured by fluorescence method. Lab Interpretation (test code = 56874-7) [facility]normal [facility]ervillePhosphorus2024-03-14 10:08:30* Test Item Value Reference Range Interpretation Comme nts PHOSPHORUS (test code = 8784005420) 3.0 mg/dL 2.5-5.0 Lab Interpretation (test cod e = 19049-3) Normal [facility]ervilleMagnesium2024-03-14 10:08:30* Test Item Value Reference Range Interpretation Comme nts MAGNESIUM (test code = 2957774591) 2.6 mg/dL 1.7-2.4 H Lab Interpretation (test cod e = 41615-8) Abnormal [facility] Met[facility] (NA, K, CL, CO2, GLUCOSE, BUN, CREATININE, CA)2023-07-10 10:08:30* Test Item Value Reference Range Interpretation Comme nts NA (test code = 2205612303) 138 mmol/L 135-145 K (test code = 0394184453) 4.2 mmol/L 3.5-5.0 CL (test code = 7636123879) 112 mmol/L 98-108 H CO2 TOTAL (test code = 8114133098) 22 mmol/L 23-31 L AGAP (test code = 6330106112) 4 2-16 BUN (test code = 0970968933) 23 mg/dL 7-23 GLUCOSE (test code = 7088595325) 183 mg/dL 70-110 H CREATININE (test code = 2160-0) 1.64 mg/dL 0.60-1.25 H CALCIUM (test code = 9472720361) 8.7 mg/dL 8.6-10.6 eGFR (test code = 69990-0) 45.6 mL/min/1.73m2 CKD-EPI eGFR (2020). Assuming creatinine has been stable day-to-day for at least three months, the eGFR indicates Category G3a (45 - 59 mL/min/1.73 m2) Lab Interpretation (test code = 81043-7) [facility]normal [facility]AC Panel 20 + Lactic Acid [id number] 09:29:59* Test Item Value Reference Range Interpretation Comme [facility] PH (test code = 2) 7.39 7.35-7.45 PCO2 (test code = 6710397481) 36 35-45 PO2 (test code = 5836502211) 67 80-100 L HCO3 (test code = 8306030105) 21 22-26 L BE (test code = 5411919790) -3.5 -3.0-3.0 L THB (test code = 1676088915) 8.7 g/dL 13.5-18.0 L %O2HB (test code = 7588074585) 92.8 % 94.0-99.0 L %COHB ART (test code = 9370502056) 0.4 % 0.0-1.5 %METHB ART (test code = 5191971584) 0.3 % 0.4-1.5 L VOL%O2 ART (test code = 4479069527) 11.4 % 15.0-23.0 L NA (test code = 6694548021) 138 mmol/L 135-145 K+ (test code = 5282593949) 4.2 mmol/L 3.5-5.0 AC CA IONZ (test code = 8891777917) 4.80 mg/dL 4.50-5.30 GLUCOSE (test code = 3265747671) 182 mg/dL 70-110 H LACTIC ACID (test code = 1992191990) 1.47 mmol/L 0.50-2.20 Lab Interpretation (test cod e = 02789-2) Abnormal [facility] GLUCOSE (AUTOMATED)2023-07-10 05:27:55* Test Item Value Reference Range Interpretation Comme [facility] POCT GLU (test code = 6381812295) 180 mg/dL 70-110 H Lab Interpretation (test cod e = 93325-8) Abnormal [facility] GLUCOSE (AUTOMATED)2023-07-10 01:48:25* Test Item Value Reference Range Interpretation Comme nts POCT GLU (test code = 1225340743) 146 mg/dL 70-110 H Lab Interpretation (test cod e = 54680-3) [facility]normal [facility]AC Panel 20 + Lactic Acid [id number] 17:57:01* Test Item Value Reference Range Interpretation Comme nts PH (test code = 2) 7.40 7.35-7.45 PCO2 (test code = 2536256551) 32 35-45 L PO2 (test code = 1148991413) 138 80-100 H HCO3 (test code = 8515603591) 20 22-26 L BE (test code = 8340297030) -4.5 -3.0-3.0 L THB (test code = 7972021496) 8.6 g/dL 13.5-18.0 L %O2HB (test code = 6131342568) 98.2 % 94.0-99.0 %COHB ART (test code = 5149800548) 0.0 % 0.0-1.5 %METHB ART (test code = 4980433021) 0.3 % 0.4-1.5 L VOL%O2 ART (test code = 7268295311) 12.2 % 15.0-23.0 L NA (test code = 5025904742) 139 mmol/L 135-145 K+ (test code = 6071190232) 4.2 mmol/L 3.5-5.0 AC CA IONZ (test code = 7219182339) 4.70 mg/dL 4.50-5.30 GLUCOSE (test code = 3109983379) 124 mg/dL 70-110 H LACTIC ACID (test code = 3391369775) 1.13 mmol/L 0.50-2.20 Lab Interpretation (test cod e = 63328-3) [facility]normal [facility] 20 + Lactic Acid [id number] 17:57:01* Test Item Value Reference Range Interpretation Comme nts PH (test code = 2) 7.40 7.35-7.45 PCO2 (test code = 6055615819) 32 35-45 L PO2 (test code = 5040410784) 138 80-100 H HCO3 (test code = 3249894166) 20 22-26 L BE (test code = 1173910962) -4.5 -3.0-3.0 L THB (test code = 5570393608) 8.6 g/dL 13.5-18.0 L %O2HB (test code = 3848667472) 98.2 % 94.0-99.0 %COHB ART (test code = 5406635372) 0.0 % 0.0-1.5 %METHB ART (test code = 1625594416) 0.3 % 0.4-1.5 L VOL%O2 ART (test code = 8222898449) 12.2 % 15.0-23.0 L NA (test code = 0434132532) 139 mmol/L 135-145 K+ (test code = 7890354903) 4.2 mmol/L 3.5-5.0 AC CA IONZ (test code = 5783671628) 4.70 mg/dL 4.50-5.30 GLUCOSE (test code = 8030088783) 124 mg/dL 70-110 H LACTIC ACID (test code = 5290302628) 1.13 mmol/L 0.50-2.20 Lab Interpretation (test cod e = 24516-0) [facility]normal [facility] 20 + Lactic Acid [id number] 17:57:01* Test Item Value Reference Range Interpretation Comme nts PH (test code = 2) 7.40 7.35-7.45 PCO2 (test code = 2350557904) 32 35-45 L PO2 (test code = 1677155815) 138 80-100 H HCO3 (test code = 3795566009) 20 22-26 L BE (test code = 2454220577) -4.5 -3.0-3.0 L THB (test code = 4466577590) 8.6 g/dL 13.5-18.0 L %O2HB (test code = 8750491885) 98.2 % 94.0-99.0 %COHB ART (test code = 1979233959) 0.0 % 0.0-1.5 %METHB ART (test code = 3105623899) 0.3 % 0.4-1.5 L VOL%O2 ART (test code = 1726007015) 12.2 % 15.0-23.0 L NA (test code = 1567498379) 139 mmol/L 135-145 K+ (test code = 9947272531) 4.2 mmol/L 3.5-5.0 AC CA IONZ (test code = 7270205032) 4.70 mg/dL 4.50-5.30 GLUCOSE (test code = 4051171716) 124 mg/dL 70-110 H LACTIC ACID (test code = 6627162852) 1.13 mmol/L 0.50-2.20 Lab Interpretation (test cod e = 01035-7) Abnormal [facility] 1 [id number] 13:58:21COMPARISON : 07/08/2023 [id number] 13:58:21COMPARISON : 07/08/2023 HISTORY: s/p open heart surgery [facility] 1 [id number] 13:58:21COMPARISON : 07/08/[facility] [id number] 13:42:53COMPARISON: 07/08/2023 [facility] [id number] 13:42:53 COMPARISON: 07/08/2023 [facility] [id number] 13:42:53COMPARISON: 07/08/2023 [facility] 2023[facility]07-09 13:24:29* Test Item Value Reference Range Interpretation Comme nts POCT GLU (test code = [id number]) 150 mg/dL 70-110 H Lab Interpretation (test cod e = 73452-2) Abnormal [facility] GLUCOSE (AUTOMATED)2023-07-09 13:24:29* Test Item Value Reference Range Interpretation Comme nts POCT GLU (test code = 4876048073) 150 mg/dL 70-110 H Lab Interpretation (test cod e = 29836-8) Abnormal [facility] GLUCOSE (AUTOMATED)2023-07-09 13:24:29* Test Item Value Reference Range Interpretation Comme nts POCT GLU (test code = 1719289302) 150 mg/dL 70-110 H Lab Interpretation (test cod e = 90117-3) Abnormal [facility] with [id number] 10:06:06* Test Item Value Reference Range Interpretation [...] 34.1 g/dL 31.2-35.0 RDW-SD (test code = 00769-6) 55.8 fL 38.5-51.6 H RDW-CV (test code = 788-0) 17.2 % 12.1-15.4 H PLT (test code = 777-3) 117 150-328 L MPV (test code = 94096-7) 11.6 fL 9.8-13.0 IPF % (test code = 2867640273) 5.0 % 1.2-10.7 Platelet count measured by fluorescence method. NRBC/100 WBC (test code = 0074666084) 0.0 0.0-10.0 NRBC x10^3 (test code = 0687728591) See_Comment [Automated [employer]] The system which generated this result transmitted reference range: 10*3/?L. The reference range was not used to interpret this result as normal/abnormal. GRAN MAT (NEUT) % (test code = 770-8) 84.6 % IMM GRAN % (test code = 3871156775) 0.70 % LYMPH % (test code = 736-9) 4.2 % MONO % (test code = 5905-5) 10.4 % EOS % (test code = 713-8) 0.0 % BASO % (test code = 706-2) 0.1 % GRAN MAT x10^3(ANC) (test code = 5235560867) 7.63 10*3/uL 1.99-6.95 H IMM GRAN x10^3 (test code = 9179851500) 0.06 10*3/uL 0.00-0.06 LYMPH x10^3 (test code = 731-0) 0.38 10*3/uL 1.09-3.23 L MONO x10^3 (test code = 742-7) 0.94 10*3/uL 0.36-1.02 EOS x10^3 (test code = 711-2) 0.06-0.53 L BASO x10^3 (test code = 704-7) 0.01-0.09 Lab Interpretation (test code = 28695-4) Abnormal [facility] with [id number] 10:06:06* Test Item Value Reference Range Interpretation [...] 34.1 g/dL 31.2-35.0 RDW-SD (test code = 44007-2) 55.8 fL 38.5-51.6 H RDW-CV (test code = 788-0) 17.2 % 12.1-15.4 H PLT (test code = 777-3) 117 150-328 L MPV (test code = 12818-0) 11.6 fL 9.8-13.0 IPF % (test code = 1053245319) 5.0 % 1.2-10.7 Platelet count measured by fluorescence method. NRBC/100 WBC (test code = 2989872833) 0.0 0.0-10.0 NRBC x10^3 (test code = 7972589604) See_Comment [Automated messa ge] The system which generated this result transmitted reference range: 10*3/?L. The reference range was not used to interpret this result as normal/abnormal. GRAN MAT (NEUT) % (test code = 770-8) 84.6 % IMM GRAN % (test code = 8156243503) 0.70 % LYMPH % (test code = 736-9) 4.2 % MONO % (test code = 5905-5) 10.4 % EOS % (test code = 713-8) 0.0 % BASO % (test code = 706-2) 0.1 % GRAN MAT x10^3(ANC) (test code = 2928123113) 7.63 10*3/uL 1.99-6.95 H IMM GRAN x10^3 (test code = 6763261550) 0.06 10*3/uL 0.00-0.06 LYMPH x10^3 (test code = 731-0) 0.38 10*3/uL 1.09-3.23 L MONO x10^3 (test code = 742-7) 0.94 10*3/uL 0.36-1.02 EOS x10^3 (test code = 711-2) 0.06-0.53 L BASO x10^3 (test code = 704-7) 0.01-0.09 Lab Interpretation (test code = 35977-8) Abnormal [facility] with Ahby6093-19-66 10:06:06* Test Item Value Reference Range Interpretation [...] 34.1 g/dL 31.2-35.0 RDW-SD (test code = 64616-3) 55.8 fL 38.5-51.6 H RDW-CV (test code = 788-0) 17.2 % 12.1-15.4 H PLT (test code = 777-3) 117 150-328 L MPV (test code = 31640-9) 11.6 fL 9.8-13.0 IPF % (test code = 5577728700) 5.0 % 1.2-10.7 Platelet count measured by fluorescence method. NRBC/100 WBC (test code = 1236676685) 0.0 0.0-10.0 NRBC x10^3 (test code = 1882159840) See_Comment [Automated messa ge] The system which generated this result transmitted reference range: 10*3/?L. The reference range was not used to interpret this result as normal/abnormal. GRAN MAT (NEUT) % (test code = 770-8) 84.6 % IMM GRAN % (test code = 8486866754) 0.70 % LYMPH % (test code = 736-9) 4.2 % MONO % (test code = 5905-5) 10.4 % EOS % (test code = 713-8) 0.0 % BASO % (test code = 706-2) 0.1 % GRAN MAT x10^3(ANC) (test code = 3883914933) 7.63 10*3/uL 1.99-6.95 H IMM GRAN x10^3 (test code = 6936904655) 0.06 10*3/uL 0.00-0.06 LYMPH x10^3 (test code = 731-0) 0.38 10*3/uL 1.09-3.23 L MONO x10^3 (test code = 742-7) 0.94 10*3/uL 0.36-1.02 EOS x10^3 (test code = 711-2) 0.06-0.53 L BASO x10^3 (test code = 704-7) 0.01-0.09 Lab Interpretation (test code = 58943-0) [facility] 10:03:25* Test Item Value Reference Range Interpretation Comme nts PHOSPHORUS (test code = 9909762377) 3.1 mg/dL 2.5-5.0 Lab Interpretation (test cod e = 84101-7) [facility] 10:03:25* Test Item Value Reference Range Interpretation Comme nts PHOSPHORUS (test code = 3560744011) 3.1 mg/dL 2.5-5.0 Lab Interpretation (test cod e = 02315-0) [facility]24-[facility] 10:03:25* Test Item Value Reference Range Interpretation Comme nts PHOSPHORUS (test code = 8479791184) 3.1 mg/dL 2.5-5.0 Lab Interpretation (test cod e = 15226-8) Normal [facility] Metabolic Panel (NA, K, CL, CO2, GLUCOSE, BUN, CREATININE, CA)2023-07-09 10:03:24* Test Item Value Reference Range Interpretation Comme nts NA (test code = 0940045196) 139 mmol/L 135-145 K (test code = 6928344361) 4.6 mmol/L 3.5-5.0 CL (test code = 3585821759) 114 mmol/L 98-108 H CO2 TOTAL (test code = 1150117593) 20 mmol/L 23-31 L AGAP (test code = 3823527903) 5 2-16 BUN (test code = 1191276335) 16 mg/dL 7-23 GLUCOSE (test code = 0185307338) 160 mg/dL 70-110 H CREATININE (test code = 2160-0) 1.43 mg/dL 0.60-1.25 H CALCIUM (test code = 7056619236) 8.5 mg/dL 8.6-10.6 L eGFR (test code = 81714-9) 53.7 mL/min/1.73m2 CKD-EPI eGFR (2020). Assuming creatinine has been stable day-to-day for at least three months, the eGFR indicates Category G3a (45 - 59 mL/min/1.73 m2) Lab Interpretation (test code = 94687-1) [facility] 10:03:24* Test Item Value Reference Range Interpretation Comme nts MAGNESIUM (test code = 2249952860) 3.1 mg/dL 1.7-2.4 H Lab Interpretation (test cod e = 97680-6) Abnormal [facility] Metabolic Panel (NA, K, CL, CO2, GLUCOSE, BUN, CREATININE, CA)2023-07-09 10:03:24* Test Item Value Reference Range Interpretation Comme nts NA (test code = 7499147429) 139 mmol/L 135-145 K (test code = 1114085768) 4.6 mmol/L 3.5-5.0 CL (test code = 6497638409) 114 mmol/L 98-108 H CO2 TOTAL (test code = 4514350811) 20 mmol/L 23-31 L AGAP (test code = 2815125723) 5 2-16 BUN (test code = 9850794349) 16 mg/dL 7-23 GLUCOSE (test code = 4157758749) 160 mg/dL 70-110 H CREATININE (test code = 2160-0) 1.43 mg/dL 0.60-1.25 H CALCIUM (test code = 0905943496) 8.5 mg/dL 8.6-10.6 L eGFR (test code = 78518-9) 53.7 mL/min/1.73m2 CKD-EPI eGFR (2020). Assuming creatinine has been stable day-to-day for at least three months, the eGFR indicates Category G3a (45 - 59 mL/min/1.73 m2) Lab Interpretation (test code = 36940-1) [facility]24-[facility]13 10:03:24* Test Item Value Reference Range Interpretation Comme nts MAGNESIUM (test code = 6148612674) 3.1 mg/dL 1.7-2.4 H Lab Interpretation (test cod e = 74963-2) Abnormal [facility] Metabolic Panel (NA, K, CL, CO2, GLUCOSE, BUN, CREATININE, CA)2023-07-09 10:03:24* Test Item Value Reference Range Interpretation Comme nts NA (test code = 4525270312) 139 mmol/L 135-145 K (test code = 4370972546) 4.6 mmol/L 3.5-5.0 CL (test code = 8166950181) 114 mmol/L 98-108 H CO2 TOTAL (test code = 7715116328) 20 mmol/L 23-31 L AGAP (test code = 4144548506) 5 2-16 BUN (test code = 3031986352) 16 mg/dL 7-23 GLUCOSE (test code = 0615962803) 160 mg/dL 70-110 H CREATININE (test code = 2160-0) 1.43 mg/dL 0.60-1.25 H CALCIUM (test code = 2973603967) 8.5 mg/dL 8.6-10.6 L eGFR (test code = 54335-0) 53.7 mL/min/1.73m2 CKD-EPI eGFR (2020). Assuming creatinine has been stable day-to-day for at least three months, the eGFR indicates Category G3a (45 - 59 mL/min/1.73 m2) Lab Interpretation (test code = 04473-7) [facility] 10:03:24* Test Item Value Reference Range Interpretation Comme nts MAGNESIUM (test code = 6537457615) 3.1 mg/dL 1.7-2.4 H Lab Interpretation (test cod e = 61920-9) [facility] / [id number] 09:32:57* Test Item Value Reference Range Interpretation Comme nts PROTIME PATIENT (test code = 5964-2) 11.6 10.1-12.6 INR (test code = 6301-6) 1.0 Normal INR <1.1; Warfarin Therapeutic range 2.0 to 3.0 or 2.5 to 3.5, depending upon the indications. Lab Interpretation (test code = 85419-8) [facility] / [id number] 09:32:57* Test Item Value Reference Range Interpretation Comme nts PROTIME PATIENT (test code = 5964-2) 11.6 10.1-12.6 INR (test code = 6301-6) 1.0 Normal INR <1.1; Warfarin Therapeutic range 2.0 to 3.0 or 2.5 to 3.5, depending upon the indications. Lab Interpretation (test code = 32487-3) [facility] / [id number] 09:32:57* Test Item Value Reference Range Interpretation Comme nts PROTIME PATIENT (test code = 5964-2) 11.6 10.1-12.6 INR (test code = 6301-6) 1.0 Normal INR <1.1; Warfarin Therapeutic range 2.0 to 3.0 or 2.5 to 3.5, depending upon the indications. Lab Interpretation (test code = 91530-7) Normal [facility] GLUCOSE (AUTOMATED)2023-07-09 09:10:50* Test Item Value Reference Range Interpretation Comme [facility] POCT GLU (test code = 8978181848) 186 mg/dL 70-110 H Lab Interpretation (test cod e = 69994-7) Abnormal [facility] GLUCOSE (AUTOMATED)2023-07-09 09:10:50* Test Item Value Reference Range Interpretation Comme [facility] POCT GLU (test code = 5058078791) 186 mg/dL 70-110 H Lab Interpretation (test cod e = 48744-9) Abnormal [facility] GLUCOSE (AUTOMATED)2023-07-09 09:10:50* Test Item Value Reference Range Interpretation Comme [facility] POCT GLU (test code = 2315781483) 186 mg/dL 70-110 H Lab Interpretation (test cod e = 70965-2) Abnormal [facility] with Wekz3292-78-40 08:21:30* Test Item Value Reference Range Interpretation [...] 33.6 g/dL 31.2-35.0 RDW-SD (test code = 65524-6) 54.4 fL 38.5-51.6 H RDW-CV (test code = 788-0) 17.0 % 12.1-15.4 H PLT (test code = 777-3) 129 150-328 L MPV (test code = 20006-8) 11.3 fL 9.8-13.0 IPF % (test code = 1497872589) 5.5 % 1.2-10.7 Platelet count measured by fluorescence method. NRBC/100 WBC (test code = 5604133619) 0.0 0.0-10.0 NRBC x10^3 (test code = 0661660121) See_Comment [Automated [employer]] The system which generated this result transmitted reference range: 10*3/?L. The reference range was not used to interpret this result as normal/abnormal. GRAN MAT (NEUT) % (test code = 770-8) 84.4 % IMM GRAN % (test code = 2968268287) 0.50 % LYMPH % (test code = 736-9) 4.1 % MONO % (test code = 5905-5) 10.9 % EOS % (test code = 713-8) 0.0 % BASO % (test code = 706-2) 0.1 % GRAN MAT x10^3(ANC) (test code = 3445880014) 8.37 10*3/uL 1.99-6.95 H IMM GRAN x10^3 (test code = 4135125968) 0.05 10*3/uL 0.00-0.06 LYMPH x10^3 (test code = 731-0) 0.41 10*3/uL 1.09-3.23 L MONO x10^3 (test code = 742-7) 1.08 10*3/uL 0.36-1.02 H EOS x10^3 (test code = 711-2) 0.06-0.53 L BASO x10^3 (test code = 704-7) 0.01-0.09 Lab Interpretation (test code = 59997-8) Abnormal [facility] with [id number] 08:21:30* Test Item Value Reference Range Interpretation [...] 33.6 g/dL 31.2-35.0 RDW-SD (test code = 68125-7) 54.4 fL 38.5-51.6 H RDW-CV (test code = 788-0) 17.0 % 12.1-15.4 H PLT (test code = 777-3) 129 150-328 L MPV (test code = 81928-2) 11.3 fL 9.8-13.0 IPF % (test code = 5701110483) 5.5 % 1.2-10.7 Platelet count measured by fluorescence method. NRBC/100 WBC (test code = 4687646581) 0.0 0.0-10.0 NRBC x10^3 (test code = 9299927189) See_Comment [Automated messa ge] The system which generated this result transmitted reference range: 10*3/?L. The reference range was not used to interpret this result as normal/abnormal. GRAN MAT (NEUT) % (test code = 770-8) 84.4 % IMM GRAN % (test code = 5732012040) 0.50 % LYMPH % (test code = 736-9) 4.1 % MONO % (test code = 5905-5) 10.9 % EOS % (test code = 713-8) 0.0 % BASO % (test code = 706-2) 0.1 % GRAN MAT x10^3(ANC) (test code = 5695777944) 8.37 10*3/uL 1.99-6.95 H IMM GRAN x10^3 (test code = 4643734363) 0.05 10*3/uL 0.00-0.06 LYMPH x10^3 (test code = 731-0) 0.41 10*3/uL 1.09-3.23 L MONO x10^3 (test code = 742-7) 1.08 10*3/uL 0.36-1.02 H EOS x10^3 (test code = 711-2) 0.06-0.53 L BASO x10^3 (test code = 704-7) 0.01-0.09 Lab Interpretation (test code = 16603-6) Abnormal [facility] with [id number] 08:21:30* Test Item Value Reference Range Interpretation [...] 33.6 g/dL 31.2-35.0 RDW-SD (test code = 00840-5) 54.4 fL 38.5-51.6 H RDW-CV (test code = 788-0) 17.0 % 12.1-15.4 H PLT (test code = 777-3) 129 150-328 L MPV (test code = 27426-4) 11.3 fL 9.8-13.0 IPF % (test code = 2224089085) 5.5 % 1.2-10.7 Platelet count measured by fluorescence method. NRBC/100 WBC (test code = 1235939635) 0.0 0.0-10.0 NRBC x10^3 (test code = 2754286132) See_Comment [Automated [employer]] The system which generated this result transmitted reference range: 10*3/?L. The reference range was not used to interpret this result as normal/abnormal. GRAN MAT (NEUT) % (test code = 770-8) 84.4 % IMM GRAN % (test code = 5893349961) 0.50 % LYMPH % (test code = 736-9) 4.1 % MONO % (test code = 5905-5) 10.9 % EOS % (test code = 713-8) 0.0 % BASO % (test code = 706-2) 0.1 % GRAN MAT x10^3(ANC) (test code = 8006156676) 8.37 10*3/uL 1.99-6.95 H IMM GRAN x10^3 (test code = 8746201246) 0.05 10*3/uL 0.00-0.06 LYMPH x10^3 (test code = 731-0) 0.41 10*3/uL 1.09-3.23 L MONO x10^3 (test code = 742-7) 1.08 10*3/uL 0.36-1.02 H EOS x10^3 (test code = 711-2) 0.06-0.53 L BASO x10^3 (test code = 704-7) 0.01-0.09 Lab Interpretation (test code = 32881-5) Abnormal [facility] GLUCOSE (AUTOMATED)2023-07-09 07:35:51* Test Item Value Reference Range Interpretation Comme nts POCT GLU (test code = 5847317647) 192 mg/dL 70-110 H Lab Interpretation (test cod e = 10158-3) Abnormal [facility] GLUCOSE (AUTOMATED)2023-07-09 07:35:51* Test Item Value Reference Range Interpretation Comme nts POCT GLU (test code = 0497405777) 192 mg/dL 70-110 H Lab Interpretation (test cod e = 85229-2) Abnormal [facility] GLUCOSE (AUTOMATED)2023-07-09 07:35:51* Test Item Value Reference Range Interpretation Comme nts POCT GLU (test code = 4619277904) 192 mg/dL 70-110 H Lab Interpretation (test cod e = 98460-5) Abnormal [facility] GLUCOSE (AUTOMATED)2023-07-09 04:47:07* Test Item Value Reference Range Interpretation Comme nts POCT GLU (test code = 0703982163) 220 mg/dL 70-110 H Lab Interpretation (test cod e = 05147-3) Abnormal [facility] GLUCOSE (AUTOMATED)2023-07-09 04:47:07* Test Item Value Reference Range Interpretation Comme nts POCT GLU (test code = 6955364016) 220 mg/dL 70-110 H Lab Interpretation (test cod e = 52059-0) Abnormal [facility] GLUCOSE (AUTOMATED)2023-07-09 04:47:07* Test Item Value Reference Range Interpretation Comme nts POCT GLU (test code = 1355137733) 220 mg/dL 70-110 H Lab Interpretation (test cod e = 93602-6) Abnormal [facility] Packed RBC (in units), 1 Units 2023-07-09 04:15:12* Test Item Value Reference Range Interpretation Comme nts Cross Match Result (test code = 4409) Compatible ISBT Blood Type Code (test code = 326689) 7300 Unit Blood Type (test code = 4410) B Pos Unit Number (test code = 4411) [id number] Blood Expiration Date & Time (test code = 741882) 705014895756 Status Information (test code = 4412) Issued Product Identification (test code = 4413) Red Blood Cells Product Code (test code = 4414) [id number] Performed at [facility] Blood [address] Free: [phone] No. [id number] [facility] Packed RBC (in units), 1 Units 2023-07-09 04:15:12* Test Item Value Reference Range Interpretation Comme nts Cross Match Result (test code = 4409) Compatible ISBT Blood Type Code (test code = 611280) 7300 Unit Blood Type (test code = 4410) B Pos Unit Number (test code = 4411) [id number] Blood Expiration Date & Time (test code = 328784) 071146417729 Status Information (test code = 4412) Issued Product Identification (test code = 4413) Red Blood Cells Product Code (test code = 4414) [id number] Performed at [facility] Blood [address]: [phone] No. [id number] [facility] Packed RBC (in units), 1 Units 2023-07-09 04:15:12* Test Item Value Reference Range Interpretation Comme nts Cross Match Result (test code = 4409) Compatible ISBT Blood Type Code (test code = 251807) 7300 Unit Blood Type (test code = 4410) B Pos Unit Number (test code = 4411) [id number] Blood Expiration Date & Time (test code = 405157) [id number] Status Information (test code = 4412) Issued Product Identification (test code = 4413) Red Blood Cells Product Code (test code = 4414) [id number] Performed at [facility] B Laboratory Services [facility] Blood [address] [place], [place] [address]Toll Free: [phone] No. [id number] [facility] Met[facility] (NA, K, CL, CO2, GLUCOSE, BUN, CREATININE, CA)2023-07-09 03:27:09* Test Item Value Reference Range Interpretation Comme nts NA (test code = 9941642988) 136 mmol/L 135-145 K (test code = 1601320185) 4.9 mmol/L 3.5-5.0 CL (test code = 7595655324) 113 mmol/L 98-108 H CO2 TOTAL (test code = 3908761443) 20 mmol/L 23-31 L AGAP (test code = 7381070059) 3 2-16 BUN (test code = 0386383955) 16 mg/dL 7-23 GLUCOSE (test code = 4950808508) 201 mg/dL 70-110 H CREATININE (test code = 2160-0) 1.42 mg/dL 0.60-1.25 H CALCIUM (test code = 8167170325) 8.2 mg/dL 8.6-10.6 L eGFR (test code = 77007-7) 54.2 mL/min/1.73m2 CKD-EPI eGFR (2020). Assuming creatinine has been stable day-to-day for at least three months, the eGFR indicates Category G3a (45 - 59 mL/min/1.73 m2) Lab Interpretation (test code = 27611-1) Abnormal [facility] Metabolic Panel (NA, K, CL, CO2, GLUCOSE, BUN, CREATININE, CA)2023-07-09 03:27:09* Test Item Value Reference Range Interpretation Comme nts NA (test code = 7428069854) 136 mmol/L 135-145 K (test code = 9543722019) 4.9 mmol/L 3.5-5.0 CL (test code = 7473901824) 113 mmol/L 98-108 H CO2 TOTAL (test code = 8565409731) 20 mmol/L 23-31 L AGAP (test code = 4324666784) 3 2-16 BUN (test code = 3340107170) 16 mg/dL 7-23 GLUCOSE (test code = 7027042753) 201 mg/dL 70-110 H CREATININE (test code = 2160-0) 1.42 mg/dL 0.60-1.25 H CALCIUM (test code = 8463115902) 8.2 mg/dL 8.6-10.6 L eGFR (test code = 74132-9) 54.2 mL/min/1.73m2 CKD-EPI eGFR (2020). Assuming creatinine has been stable day-to-day for at least three months, the eGFR indicates Category G3a (45 - 59 mL/min/1.73 m2) Lab Interpretation (test code = 12930-9) Abnormal [facility] Metabolic Panel (NA, K, CL, CO2, GLUCOSE, BUN, CREATININE, CA)2023-07-09 03:27:09* Test Item Value Reference Range Interpretation Comme nts NA (test code = 6102655138) 136 mmol/L 135-145 K (test code = 4289956134) 4.9 mmol/L 3.5-5.0 CL (test code = 6343084906) 113 mmol/L 98-108 H CO2 TOTAL (test code = 2152726537) 20 mmol/L 23-31 L AGAP (test code = 6783980304) 3 2-16 BUN (test code = 1669580362) 16 mg/dL 7-23 GLUCOSE (test code = 8973963375) 201 mg/dL 70-110 H CREATININE (test code = 2160-0) 1.42 mg/dL 0.60-1.25 H CALCIUM (test code = 3169075645) 8.2 mg/dL 8.6-10.6 L eGFR (test code = 91593-2) 54.2 mL/min/1.73m2 CKD-EPI eGFR (2020). Assuming creatinine has been stable day-to-day for at least three months, the eGFR indicates Category G3a (45 - 59 mL/min/1.73 m2) Lab Interpretation (test code = 32596-3) Abnormal [facility] with Lifv2828-59-41 03:19:45* Test Item Value Reference Range Interpretation [...] 34.5 g/dL 31.2-35.0 RDW-SD (test code = 80123-8) 50.3 fL 38.5-51.6 RDW-CV (test code = 788-0) 15.3 % 12.1-15.4 PLT (test code = 777-3) 111 150-328 L MPV (test code = 52166-0) 11.3 fL 9.8-13.0 IPF % (test code = 0405070189) 5.6 % 1.2-10.7 Platelet count measured by fluorescence method. NRBC/100 WBC (test code = 2925244311) 0.0 0.0-10.0 NRBC x10^3 (test code = 8396774461) See_Comment [Automated [employer]] The system which generated this result transmitted reference range: 10*3/?L. The reference range was not used to interpret this result as normal/abnormal. GRAN MAT (NEUT) % (test code = 770-8) 89.5 % IMM GRAN % (test code = 5509469485) 0.60 % LYMPH % (test code = 736-9) 2.9 % MONO % (test code = 5905-5) 6.9 % EOS % (test code = 713-8) 0.0 % BASO % (test code = 706-2) 0.1 % GRAN MAT x10^3(ANC) (test code = 0328463914) 6.19 10*3/uL 1.99-6.95 IMM GRAN x10^3 (test code = 4689057651) 0.04 10*3/uL 0.00-0.06 LYMPH x10^3 (test code = 731-0) 0.20 10*3/uL 1.09-3.23 L MONO x10^3 (test code = 742-7) 0.48 10*3/uL 0.36-1.02 EOS x10^3 (test code = 711-2) 0.06-0.53 L BASO x10^3 (test code = 704-7) 0.01-0.09 Lab Interpretation (test code = 80106-1) [facility] [id number] 03:19:45* Test Item Value Reference Range Interpretation [...] 34.5 g/dL 31.2-35.0 RDW-SD (test code = 06928-2) 50.3 fL 38.5-51.6 RDW-CV (test code = 788-0) 15.3 % 12.1-15.4 PLT (test code = 777-3) 111 150-328 L MPV (test code = 90700-8) 11.3 fL 9.8-13.0 IPF % (test code = 0621891680) 5.6 % 1.2-10.7 Platelet count measured by fluorescence method. NRBC/100 WBC (test code = 1319101848) 0.0 0.0-10.0 NRBC x10^3 (test code = 2066663029) See_Comment [Automated messa ge] The system which generated this result transmitted reference range: 10*3/?L. The reference range was not used to interpret this result as normal/abnormal. GRAN MAT (NEUT) % (test code = 770-8) 89.5 % IMM GRAN % (test code = 8315227785) 0.60 % LYMPH % (test code = 736-9) 2.9 % MONO % (test code = 5905-5) 6.9 % EOS % (test code = 713-8) 0.0 % BASO % (test code = 706-2) 0.1 % GRAN MAT x10^3(ANC) (test code = 0347389491) 6.19 10*3/uL 1.99-6.95 IMM GRAN x10^3 (test code = 6371901377) 0.04 10*3/uL 0.00-0.06 LYMPH x10^3 (test code = 731-0) 0.20 10*3/uL 1.09-3.23 L MONO x10^3 (test code = 742-7) 0.48 10*3/uL 0.36-1.02 EOS x10^3 (test code = 711-2) 0.06-0.53 L BASO x10^3 (test code = 704-7) 0.01-0.09 Lab Interpretation (test code = 05177-9) Abnormal [facility] with [id number] 03:19:45* Test Item Value Reference Range Interpretation [...] 34.5 g/dL 31.2-35.0 RDW-SD (test code = 34010-1) 50.3 fL 38.5-51.6 RDW-CV (test code = 788-0) 15.3 % 12.1-15.4 PLT (test code = 777-3) 111 150-328 L MPV (test code = 36881-0) 11.3 fL 9.8-13.0 IPF % (test code = 3160356633) 5.6 % 1.2-10.7 Platelet count measured by fluorescence method. NRBC/100 WBC (test code = 8061220669) 0.0 0.0-10.0 NRBC x10^3 (test code = 5429853679) See_Comment [Automated messa ge] The system which generated this result transmitted reference range: 10*3/?L. The reference range was not used to interpret this result as normal/abnormal. GRAN MAT (NEUT) % (test code = 770-8) 89.5 % IMM GRAN % (test code = 3141532538) 0.60 % LYMPH % (test code = 736-9) 2.9 % MONO % (test code = 5905-5) 6.9 % EOS % (test code = 713-8) 0.0 % BASO % (test code = 706-2) 0.1 % GRAN MAT x10^3(ANC) (test code = 2790072147) 6.19 10*3/uL 1.99-6.95 IMM GRAN x10^3 (test code = 2721188057) 0.04 10*3/uL 0.00-0.06 LYMPH x10^3 (test code = 731-0) 0.20 10*3/uL 1.09-3.23 L MONO x10^3 (test code = 742-7) 0.48 10*3/uL 0.36-1.02 EOS x10^3 (test code = 711-2) 0.06-0.53 L BASO x10^3 (test code = 704-7) 0.01-0.09 Lab Interpretation (test code = 52007-6) [facility]normal [facility]throm[facility] Time / [id number] 03:07:21* Test Item Value Reference Range Interpretation Comme nts PROTIME PATIENT (test code = 5964-2) 12.4 10.1-12.6 INR (test code = 6301-6) 1.1 Normal INR <1.1; Warfarin Therapeutic range 2.0 to 3.0 or 2.5 to 3.5, depending upon the indications. Lab Interpretation (test code = 94450-0) Normal [place] 03567024-03-13 03:07:21* Test Item Value Reference Range Interpretation Comme nts APTT Patient (test code = 3173-2) Lab Interpretation (test cod e = 49148-1) Normal [facility]th[facility] Time / [id number] 03:07:21* Test Item Value Reference Range Interpretation Comme nts PROTIME PATIENT (test code = 5964-2) 12.4 10.1-12.6 INR (test code = 6301-6) 1.1 Normal INR <1.1; Warfarin Therapeutic range 2.0 to 3.0 or 2.5 to 3.5, depending upon the indications. Lab Interpretation (test code = 21425-5) Normal [place] 03567024-03-13 03:07:21* Test Item Value Reference Range Interpretation Comme nts APTT Patient (test code = 3173-2) 36 Lab Interpretation (test cod e = 16074-2) Normal [facility] Time / [id number] 03:07:21* Test Item Value Reference Range Interpretation Comme nts PROTIME PATIENT (test code = 5964-2) 12.4 10.1-12.6 INR (test code = 6301-6) 1.1 Normal INR <1.1; Warfarin Therapeutic range 2.0 to 3.0 or 2.5 to 3.5, depending upon the indications. Lab Interpretation (test code = 86464-2) Normal [place] [address]-03-13 03:07:21* Test Item Value Reference Range Interpretation Comme nts APTT Patient (test code = 3173-2) 30 26-36 Lab Interpretation (test cod e = 32780-2) Normal [facility] Packed RBC (in units), 2 Units 2023-07-09 02:54:21* Test Item Value Reference Range Interpretation Comme nts Cross Match Result (test code = 4409) Compatible ISBT Blood Type Code (test code = 082222) 7300 Unit Blood Type (test code = 4410) B Pos Unit Number (test code = 4411) [id number] Blood Expiration Date & Time (test code = 594069) 267289777557 Status Information (test code = 4412) Issued Product Identification (test code = 4413) Red Blood Cells Product Code (test code = 4414) [id number] Performed at [facility] Laboratory [address] [address]Etii Free: [phone] No. [id number] [facility] Packed RBC (in units), 2 Units 2023-07-09 02:54:21* Test Item Value Reference Range Interpretation Comme nts Cross Match Result (test code = 4409) Compatible ISBT Blood Type Code (test code = 031322) 7300 Unit Blood Type (test code = 4410) B Pos Unit Number (test code = 4411) [id number] Blood Expiration Date & Time (test code = 980861) 400509542843 Status Information (test code = 4412) Issued Product Identification (test code = 4413) Red Blood Cells Product Code (test code = 4414) [id number] Performed at [address] [address]Lykv Free: [phone] No. [id number] [facility] Packed RBC (in units), 2 Units 2023-07-09 02:54:21* Test Item Value Reference Range Interpretation Comme nts Cross Match Result (test code = 4409) Compatible ISBT Blood Type Code (test code = 605391) 7300 Unit Blood Type (test code = 4410) B Pos Unit Number (test code = 4411) [id number] Blood Expiration Date & Time (test code = 097344) 500231426046 Status Information (test code = 4412) Issued Product Identification (test code = 4413) Red Blood Cells Product Code (test code = 4414) [id number] Performed at [facility] B Laboratory Services - [facility] Blood [address] [address]Tgtt Free: [phone] No. [id number] [facility]AC Panel 20 + Lactic Acid [id number] 02:50:54* Test Item Value Reference Range Interpretation Comme nts PH (test code = 2) 7.40 7.35-7.45 PCO2 (test code = 8122092256) 30 35-45 L PO2 (test code = 5276711887) 172 80-100 H HCO3 (test code = 9658939052) 18 22-26 L BE (test code = 0689556219) -6.2 -3.0-3.0 L THB (test code = 2764150155) 8.1 g/dL 13.5-18.0 LL %O2HB (test code = 5289169107) 98.6 % 94.0-99.0 %COHB ART (test code = 0843496091) 0.2 % 0.0-1.5 %METHB ART (test code = 2986083282) 0.1 % 0.4-1.5 L VOL%O2 ART (test code = 4265633079) 11.7 % 15.0-23.0 L NA (test code = 2418080036) 137 mmol/L 135-145 K+ (test code = 0829868123) 4.8 mmol/L 3.5-5.0 AC CA IONZ (test code = 7049465057) 4.60 mg/dL 4.50-5.30 GLUCOSE (test code = 4797413133) 195 mg/dL 70-110 H LACTIC ACID (test code = 7596737271) 1.15 mmol/L 0.50-2.20 Lab Interpretation (test cod e = 03444-0) Abnormal [facility] Panel 20 + Lactic Acid [id number] 02:50:54* Test Item Value Reference Range Interpretation Comme nts PH (test code = 2) 7.40 7.35-7.45 PCO2 (test code = 8667346777) 30 35-45 L PO2 (test code = 1427149988) 172 80-100 H HCO3 (test code = 6608603752) 18 22-26 L BE (test code = 0258991357) -6.2 -3.0-3.0 L THB (test code = 3561527938) 8.1 g/dL 13.5-18.0 LL %O2HB (test code = 8892517461) 98.6 % 94.0-99.0 %COHB ART (test code = 2361849534) 0.2 % 0.0-1.5 %METHB ART (test code = 1698459308) 0.1 % 0.4-1.5 L VOL%O2 ART (test code = 4730917705) 11.7 % 15.0-23.0 L NA (test code = 7663672387) 137 mmol/L 135-145 K+ (test code = 8214677546) 4.8 mmol/L 3.5-5.0 AC CA IONZ (test code = 9396165606) 4.60 mg/dL 4.50-5.30 GLUCOSE (test code = 9924302133) 195 mg/dL 70-110 H LACTIC ACID (test code = 5850324189) 1.15 mmol/L 0.50-2.20 Lab Interpretation (test cod e = 00744-8) Abnormal [facility] Panel 20 + Lactic Acid [id number] 02:50:54* Test Item Value Reference Range Interpretation Comme nts PH (test code = 2) 7.40 7.35-7.45 PCO2 (test code = 7476761856) 30 35-45 L PO2 (test code = 0443998486) 172 80-100 H HCO3 (test code = 4475934736) 18 22-26 L BE (test code = 5118597334) -6.2 -3.0-3.0 L THB (test code = 2664488243) 8.1 g/dL 13.5-18.0 LL %O2HB (test code = 0077028140) 98.6 % 94.0-99.0 %COHB ART (test code = 3875775667) 0.2 % 0.0-1.5 %METHB ART (test code = 2443147644) 0.1 % 0.4-1.5 L VOL%O2 ART (test code = 0343513715) 11.7 % 15.0-23.0 L NA (test code = 1555077708) 137 mmol/L 135-145 K+ (test code = 7544119904) 4.8 mmol/L 3.5-5.0 AC CA IONZ (test code = 7296337172) 4.60 mg/dL 4.50-5.30 GLUCOSE (test code = 6882603315) 195 mg/dL 70-110 H LACTIC ACID (test code = 4633347279) 1.15 mmol/L 0.50-2.20 Lab Interpretation (test cod e = 00378-9) Abnormal [facility] Tejpyhje1330-06-24 02:01:41* Test Item Value Reference Range Interpretation Comme nts PH (test code = 2) 7.35 7.35-7.45 PCO2 (test code = 0832306696) 35 35-45 PO2 (test code = 2082730694) 428 80-100 H BE (test code = 9578403716) -7.0 -3.0-3.0 L HCO3 (test code = 2948272934) 19 22-26 L %O2HB (test code = 2473266554) 100.0 % 95.0-98.0 H NA (test code = 3267875451) 140 mmol/L 135-145 K+ (test code = 9226814464) 4.9 mmol/L 3.5-5.0 AC CA IONZ (test code = 4066890902) 4.90 mg/dL 4.50-5.30 GLUCOSE (test code = 1147331655) 207 mg/dL 70-110 H AC Hematocrit (test code = 6006124989) 20 40-54 LL THB (test code = 1520085777) 6.8 g/dL 13.5-18.0 LL AC TC02 (test code = 3090555652) 20 mmol/L See_Comment L [Automated messa ge] The system which generated this result transmitted reference range: 23-27 mmol/L. The reference range was not used to interpret this result as normal/abnormal. Lab Interpretation (test code = 13313-5) Abnormal [facility] Kmrozthd5377-18-93 02:01:41* Test Item Value Reference Range Interpretation Comme nts PH (test code = 2) 7.35 7.35-7.45 PCO2 (test code = 6676390737) 35 35-45 PO2 (test code = 6049461414) 428 80-100 H BE (test code = 7945984873) -7.0 -3.0-3.0 L HCO3 (test code = 3111029162) 19 22-26 L %O2HB (test code = 2888823182) 100.0 % 95.0-98.0 H NA (test code = 2519794478) 140 mmol/L 135-145 K+ (test code = 8715220828) 4.9 mmol/L 3.5-5.0 AC CA IONZ (test code = 1981118050) 4.90 mg/dL 4.50-5.30 GLUCOSE (test code = 3386980518) 207 mg/dL 70-110 H AC Hematocrit (test code = 3597202975) 20 40-54 LL THB (test code = 9308990460) 6.8 g/dL 13.5-18.0 LL AC TC02 (test code = 4665585363) 20 mmol/L See_Comment L [Automated messa ge] The system which generated this result transmitted reference range: 23-27 mmol/L. The reference range was not used to interpret this result as normal/abnormal. Lab Interpretation (test code = 55261-7) Abnormal [facility] Jmegrywx6218-99-96 02:01:41* Test Item Value Reference Range Interpretation Comme nts PH (test code = 2) 7.35 7.35-7.45 PCO2 (test code = 9452118617) 35 35-45 PO2 (test code = 9538387080) 428 80-100 H BE (test code = 0120495372) -7.0 -3.0-3.0 L HCO3 (test code = 5282149512) 19 22-26 L %O2HB (test code = 8679808027) 100.0 % 95.0-98.0 H NA (test code = 4144257576) 140 mmol/L 135-145 K+ (test code = 1130928718) 4.9 mmol/L 3.5-5.0 AC CA IONZ (test code = 6420852641) 4.90 mg/dL 4.50-5.30 GLUCOSE (test code = 8597150344) 207 mg/dL 70-110 H AC Hematocrit (test code = 5898159844) 20 40-54 LL THB (test code = 9324320035) 6.8 g/dL 13.5-18.0 LL AC TC02 (test code = 0528451245) 20 mmol/L See_Comment L [Automated messa ge] The system which generated this result transmitted reference range: 23-27 mmol/L. The reference range was not used to interpret this result as normal/abnormal. Lab Interpretation (test code = 71939-8) Abnormal [facility] Platelets (in units): 2 Units~ 2023-07-09 01:38:45* Test Item Value Reference Range Interpretation Comme [facility] Unit Blood Type (test code = 4410) B Pos ISBT Blood Type Code (test code = 726845) 7300 Unit Number (test code = 4411) [id number] Blood Expiration Date & Time (test code = 257634) 996649269700 Status Information (test code = 4412) Issued Product Identification (test code = 4413) Platelets Product Code (test code = 4414) [id number] Performed at [facility] B Laboratory Services - [facility] Blood [address] [place] [address]Vjou Free: [phone] No. [id number] [facility] Platelets (in units): 2 Units~ 2023-07-09 01:38:45* Test Item Value Reference Range Interpretation Comme [facility] Unit Blood Type (test code = 4410) B Pos ISBT Blood Type Code (test code = 105999) 7300 Unit Number (test code = 4411) [id number] Blood Expiration Date & Time (test code = 878109) 081634949345 Status Information (test code = 4412) Issued Product Identification (test code = 4413) Platelets Product Code (test code = 4414) [id number] Performed at [facility] Laboratory [facility] Blood [address] [address]Tfwj Free: [phone] No. [id number] [facility]ervillePrepare Platelets (in units): 2 Units~ 2023-07-09 01:38:45* Test Item Value Reference Range Interpretation Comme [facility] Unit Blood Type (test code = 4410) B Pos ISBT Blood Type Code (test code = 319101) 7300 Unit Number (test code = 4411) [id number] Blood Expiration Date & Time (test code = 392698) 786722442044 Status Information (test code = 4412) Issued Product Identification (test code = 4413) Platelets Product Code (test code = 4414) [id number] Performed at [facility] Blood [address] [address]Umdg Free: [phone] No. [id number] [facility]ervilleaPTT (for use with Heparin Infusion)2023-07-09 00:45:08* Test Item Value Reference Range Interpretation Comme [facility] APTT Patient (test code = 3173-2) 106 26-36 Lab Interpretation (test cod e = 12964-4) Abnormal [facility]aP[facility] (for use with Heparin Infusion)2023-07-09 00:45:08* Test Item Value Reference Range Interpretation Comme [facility] APTT Patient (test code = 3173-2) 106 26-36 Lab Interpretation (test cod e = 53127-5) [facility]2023-07-09 00:45:08* Test Item Value Reference Range Interpretation Comme [facility] APTT Patient (test code = 3173-2) 106 26-36 Lab Interpretation (test cod e = 67725-8) Abnormal [facility]ervilleBasi Metabolic Panel (NA, K, CL, CO2, GLUCOSE, BUN, CREATININE, CA)2023-07-09 00:29:05* Test Item Value Reference Range Interpretation Comme [facility] NA (test code = 8920114646) 138 mmol/L 135-145 K (test code = 1049330898) 4.8 mmol/L 3.5-5.0 CL (test code = 7870327673) 114 mmol/L 98-108 H CO2 TOTAL (test code = 4758811184) 21 mmol/L 23-31 L AGAP (test code = 3441609173) 3 2-16 BUN (test code = 2567823248) 16 mg/dL 7-23 GLUCOSE (test code = 9741416490) 198 mg/dL 70-110 H CREATININE (test code = 2160-0) 1.39 mg/dL 0.60-1.25 H CALCIUM (test code = 3493285800) 8.5 mg/dL 8.6-10.6 L eGFR (test code = 73111-3) 55.6 mL/min/1.73m2 CKD-EPI eGFR (2020). Assuming creatinine has been stable day-to-day for at least three months, the eGFR indicates Category G3a (45 - 59 mL/min/1.73 m2) Lab Interpretation (test code = 32139-5) Abnormal [facility]ervilleMagnesium2024-03-13 00:29:05* Test Item Value Reference Range Interpretation Comme nts MAGNESIUM (test code = 7549106961) 3.4 mg/dL 1.7-2.4 H Lab Interpretation (test cod e = 68282-0) Abnormal [facility]Phosphorus2024-03-13 00:29:05* Test Item Value Reference Range Interpretation Comme nts PHOSPHORUS (test code = 0688448450) 3.4 mg/dL 2.5-5.0 Lab Interpretation (test cod e = 39382-7) Normal [facility]ervilleBasic Metabolic Panel (NA, K, CL, CO2, GLUCOSE, BUN, CREATININE, CA)2023-07-09 00:29:05* Test Item Value Reference Range Interpretation Comme nts NA (test code = 0535869576) 138 mmol/L 135-145 K (test code = 5070494036) 4.8 mmol/L 3.5-5.0 CL (test code = 7907028865) 114 mmol/L 98-108 H CO2 TOTAL (test code = 8440529225) 21 mmol/L 23-31 L AGAP (test code = 9163302877) 3 2-16 BUN (test code = 8202037731) 16 mg/dL 7-23 GLUCOSE (test code = 3933043367) 198 mg/dL 70-110 H CREATININE (test code = 2160-0) 1.39 mg/dL 0.60-1.25 H CALCIUM (test code = 4097186946) 8.5 mg/dL 8.6-10.6 L eGFR (test code = 97047-6) 55.6 mL/min/1.73m2 CKD-EPI eGFR (2020). Assuming creatinine has been stable day-to-day for at least three months, the eGFR indicates Category G3a (45 - 59 mL/min/1.73 m2) Lab Interpretation (test code = 28340-8) Abnormal [facility]ervilleMagnesium2024-03-13 00:29:05* Test Item Value Reference Range Interpretation Comme nts MAGNESIUM (test code = 3303217620) 3.4 mg/dL 1.7-2.4 H Lab Interpretation (test cod e = 15951-5) Abnormal [facility]Phosphorus2024-03-13 00:29:05* Test Item Value Reference Range Interpretation Comme nts PHOSPHORUS (test code = 3752704846) 3.4 mg/dL 2.5-5.0 Lab Interpretation (test cod e = 47964-5) Normal [facility] Metabolic Panel (NA, K, CL, CO2, GLUCOSE, BUN, CREATININE, CA)2023-07-09 00:29:05* Test Item Value Reference Range Interpretation Comme nts NA (test code = 1131624441) 138 mmol/L 135-145 K (test code = 7245898741) 4.8 mmol/L 3.5-5.0 CL (test code = 7907043842) 114 mmol/L 98-108 H CO2 TOTAL (test code = 2339006964) 21 mmol/L 23-31 L AGAP (test code = 7198478041) 3 2-16 BUN (test code = 3523611079) 16 mg/dL 7-23 GLUCOSE (test code = 9146643014) 198 mg/dL 70-110 H CREATININE (test code = 2160-0) 1.39 mg/dL 0.60-1.25 H CALCIUM (test code = 5560738539) 8.5 mg/dL 8.6-10.6 L eGFR (test code = 90472-9) 55.6 mL/min/1.73m2 CKD-EPI eGFR (2020). Assuming creatinine has been stable day-to-day for at least three months, the eGFR indicates Category G3a (45 - 59 mL/min/1.73 m2) Lab Interpretation (test code = 77874-6) Abnormal [facility]erville[facility]esium2024-03-13 00:29:05* Test Item Value Reference Range Interpretation Comme nts MAGNESIUM (test code = 3642577278) 3.4 mg/dL 1.7-2.4 H Lab Interpretation (test cod e = 02374-9) Abnormal [facility]Phosphorus2024-03-13 00:29:05* Test Item Value Reference Range Interpretation Comme nts PHOSPHORUS (test code = 5486700529) 3.4 mg/dL 2.5-5.0 Lab Interpretation (test cod e = 16551-5) Normal [facility]aPTT2024-03-13 00:22:39* Test Item Value Reference Range Interpretation Comme nts APTT Patient (test code = 3173-2) 100 26-36 HH Lab Interpretation (test cod e = 74227-7) Abnormal [facility]ervilleProthrombin Time / [id number] 00:22:39* Test Item Value Reference Range Interpretation Comme nts PROTIME PATIENT (test code = 5964-2) 12.5 10.1-12.6 INR (test code = 6301-6) 1.1 Normal INR <1.1; Warfarin Therapeutic range 2.0 to 3.0 or 2.5 to 3.5, depending upon the indications. Lab Interpretation (test code = 03140-8) Normal [facility]aPTT2024-03-13 00:22:39* Test Item Value Reference Range Interpretation Comme nts APTT Patient (test code = 3173-2) 100 26-36 HH Lab Interpretation (test cod e = 69707-1) Abnormal [facility]ervilleProthrombin Time / [id number] 00:22:39* Test Item Value Reference Range Interpretation Comme nts PROTIME PATIENT (test code = 5964-2) 12.5 10.1-12.6 INR (test code = 6301-6) 1.1 Normal INR <1.1; Warfarin Therapeutic range 2.0 to 3.0 or 2.5 to 3.5, depending upon the indications. Lab Interpretation (test code = 40824-0) Normal [facility]aPTT2024-03-13 00:22:39* Test Item Value Reference Range Interpretation Comme [facility] APTT Patient (test code = 3173-2) 100 26-36 HH Lab Interpretation (test cod e = 22375-0) Abnormal [facility]ervilleProthrombin Time / [id number] 00:22:39* Test Item Value Reference Range Interpretation Comme [facility] PROTIME PATIENT (test code = 5964-2) 12.5 10.1-12.6 INR (test code = 6301-6) 1.1 Normal INR <1.1; Warfarin Therapeutic range 2.0 to 3.0 or 2.5 to 3.5, depending upon the indications. Lab Interpretation (test code = 48104-6) Normal [facility]ervilleCbc with Qbfm8829-78-64 00:15:47* Test Item Value Reference Range Interpretation Comme [facility] WBC (test code = 6690-2) 8.10 4.20-10.70 RBC (test code = 789-8) 2.42 4.26-5.52 L HGB (test code = 718-7) 7.5 g/dL 12.2-16.4 L HCT (test code = 4544-3) 22.9 % 38.4-49.3 L MCV (test code = 787-2) 94.6 fL 81.7-95.6 MCH (test code = 785-6) 31.0 pg 26.1-32.7 MCHC (test code = 786-4) 32.8 g/dL 31.2-35.0 RDW-SD (test code = 16607-7) 50.1 fL 38.5-51.6 RDW-CV (test code = 788-0) 14.5 % 12.1-15.4 PLT (test code = 777-3) 103 150-328 L MPV (test code = 39548-0) 11.1 fL 9.8-13.0 IPF % (test code = 7079563233) 5.5 % 1.2-10.7 Platelet count measured by fluorescence method. NRBC/100 WBC (test code = 8462428420) 0.0 0.0-10.0 NRBC x10^3 (test code = 3744792105) See_Comment [Automated messa ge] The system which generated this result transmitted reference range: 10*3/?L. The reference range was not used to interpret this result as normal/abnormal. GRAN MAT (NEUT) % (test code = 770-8) 88.8 % IMM GRAN % (test code = 6180474532) 0.40 % LYMPH % (test code = 736-9) 3.3 % MONO % (test code = 5905-5) 7.4 % EOS % (test code = 713-8) 0.0 % BASO % (test code = 706-2) 0.1 % GRAN MAT x10^3(ANC) (test code = 1164028132) 7.19 10*3/uL 1.99-6.95 H IMM GRAN x10^3 (test code = 9402182345) 0.03 10*3/uL 0.00-0.06 LYMPH x10^3 (test code = 731-0) 0.27 10*3/uL 1.09-3.23 L MONO x10^3 (test code = 742-7) 0.60 10*3/uL 0.36-1.02 EOS x10^3 (test code = 711-2) 0.06-0.53 L BASO x10^3 (test code = 704-7) 0.01-0.09 Lab Interpretation (test code = 33501-1) Abnormal [facility] with Dfig7512-83-06 00:15:47* Test Item Value Reference Range Interpretation [...] 32.8 g/dL 31.2-35.0 RDW-SD (test code = 63945-5) 50.1 fL 38.5-51.6 RDW-CV (test code = 788-0) 14.5 % 12.1-15.4 PLT (test code = 777-3) 103 150-328 L MPV (test code = 90407-3) 11.1 fL 9.8-13.0 IPF % (test code = 3704664365) 5.5 % 1.2-10.7 Platelet count measured by fluorescence method. NRBC/100 WBC (test code = 4619694786) 0.0 0.0-10.0 NRBC x10^3 (test code = 8541942268) See_Comment [Automated [employer] ge] The system which generated this result transmitted reference range: 10*3/?L. The reference range was not used to interpret this result as normal/abnormal. GRAN MAT (NEUT) % (test code = 770-8) 88.8 % IMM GRAN % (test code = 1939870401) 0.40 % LYMPH % (test code = 736-9) 3.3 % MONO % (test code = 5905-5) 7.4 % EOS % (test code = 713-8) 0.0 % BASO % (test code = 706-2) 0.1 % GRAN MAT x10^3(ANC) (test code = 3362602518) 7.19 10*3/uL 1.99-6.95 H IMM GRAN x10^3 (test code = 6442842536) 0.03 10*3/uL 0.00-0.06 LYMPH x10^3 (test code = 731-0) 0.27 10*3/uL 1.09-3.23 L MONO x10^3 (test code = 742-7) 0.60 10*3/uL 0.36-1.02 EOS x10^3 (test code = 711-2) 0.06-0.53 L BASO x10^3 (test code = 704-7) 0.01-0.09 Lab Interpretation (test code = 39328-6) Abnormal [facility] with Zxel1692-94-68 00:15:47* Test Item Value Reference Range Interpretation [...] 32.8 g/dL 31.2-35.0 RDW-SD (test code = 68025-8) 50.1 fL 38.5-51.6 RDW-CV (test code = 788-0) 14.5 % 12.1-15.4 PLT (test code = 777-3) 103 150-328 L MPV (test code = 89242-8) 11.1 fL 9.8-13.0 IPF % (test code = 2998974862) 5.5 % 1.2-10.7 Platelet count measured by fluorescence method. NRBC/100 WBC (test code = 0923063320) 0.0 0.0-10.0 NRBC x10^3 (test code = 4444491878) See_Comment [Automated messa ge] The system which generated this result transmitted reference range: 10*3/?L. The reference range was not used to interpret this result as normal/abnormal. GRAN MAT (NEUT) % (test code = 770-8) 88.8 % IMM GRAN % (test code = 8958309611) 0.40 % LYMPH % (test code = 736-9) 3.3 % MONO % (test code = 5905-5) 7.4 % EOS % (test code = 713-8) 0.0 % BASO % (test code = 706-2) 0.1 % GRAN MAT x10^3(ANC) (test code = 8261406875) 7.19 10*3/uL 1.99-6.95 H IMM GRAN x10^3 (test code = 4611921804) 0.03 10*3/uL 0.00-0.06 LYMPH x10^3 (test code = 731-0) 0.27 10*3/uL 1.09-3.23 L MONO x10^3 (test code = 742-7) 0.60 10*3/uL 0.36-1.02 EOS x10^3 (test code = 711-2) 0.06-0.53 L BASO x10^3 (test code = 704-7) 0.01-0.09 Lab Interpretation (test code = 67745-7) [facility] Test Item Value Reference Range Interpretation Comme nts Fibrinogen (test code = 2401767516) 188 mg/dL 167-453 Lab Interpretation (test cod e = 74713-8) [facility]* Test Item Value Reference Range Interpretation Comme nts Fibrinogen (test code = 8835838634) 188 mg/dL 167-453 Lab Interpretation (test cod e = 99343-3) [facility]:08:25* Test Item Value Reference Range Interpretation Comme nts Fibrinogen (test code = 4341827433) 188 mg/dL 167-453 Lab Interpretation (test cod e = 73413-5) Normal [facility] XRay 1 [id number] 23:32:13EXAM: XR ABDOMEN 1 VW HISTORY: 68 years-old Male; Provided indication: OGT placement . TECHNIQUE: Frontal view of the abdomen and pelvis COMPARISON: [facility] 2023-07-08 23:32:13EXAM: XR ABDOMEN 1 VW HISTORY: 68 years-old Male; Provided indication: OGT placement . TECHNIQUE: Frontal view of the abdomen and pelvis COMPARISON: [facility] the [facility] [id number] 23:32:13EXAM: XR ABDOMEN 1 VW HISTORY: 68 years-old Male; Provided indication: OGT placement . TECHNIQUE: Frontal view of the abdomen and pelvis COMPARISON: Chest x-ray performed on the same date [facility] 1 View (on admission)2023-07-08 21:10:42 EXAM: XR CHEST 1 VW COMPARISON: 07/07/2023 HISTORY: s/p open heart surgery FINDINGS: The ET tube tipoverlies the upper trachealThe [place] catheter tip projects over the right pulmonary [...] Lungs: The lung volumes are ?normal . [id number] left pleuraleffusion and moderate left basilar predominant atelectasis. Heart/Mediastinum: Stable global cardiomegaly. Calcified aorta. Post CABGchanges.. Bones and soft tissues: Sternotomy wires in satisfactory alignment.External defibrillator electrodes noted projecting of the lower chest [facility] 1 View (on admission)2023-07-08 21:10:42 EXAM: XR CHEST 1 VW COMPARISON: 07/07/2023 HISTORY: s/p open heart surgery FINDINGS: The ET tube tipoverlies the upper trachealThe [place] catheter tip projects over the right pulmonary [...] Lungs: The lung volumes are ?normal . Brvbg-ul-gkvwkjpv left pleuraleffusion and moderate left basilar predominant atelectasis. Heart/Mediastinum: Stable global cardiomegaly. Calcified aorta. Post CABGchanges.. Bones and soft tissues: Sternotomy wires in satisfactory alignment.External defibrillator electrodes noted projecting of the lower chest [facility] 1 View (on admission)2023-07-08 21:10:42 EXAM: XR CHEST 1 VW COMPARISON: 07/07/2023 HISTORY: s/p open heart surgery FINDINGS: The ET tube tipoverlies the upper trachealThe [place] catheter tip projects over the right pulmonary [...] Lungs: The lung volumes are ?normal . Qcmzv-co-yfsoywwx left pleuraleffusion and moderate left basilar predominant atelectasis. Heart/Mediastinum: Stable global cardiomegaly. Calcified aorta. Post CABGchanges.. Bones and soft tissues: Sternotomy wires in satisfactory alignment.External defibrillator electrodes noted projecting of the lower chest [facility] with Legm0047-24-20 20:26:53* Test Item Value Reference Range Interpretation [...] 33.3 g/dL 31.2-35.0 RDW-SD (test code = 23482-2) 49.1 fL 38.5-51.6 RDW-CV (test code = 788-0) 14.4 % 12.1-15.4 PLT (test code = 777-3) 91 150-328 L MPV (test code = 48533-1) 11.9 fL 9.8-13.0 IPF % (test code = 6881886130) 6.2 % 1.2-10.7 Platelet count measured by fluorescence method. NRBC/100 WBC (test code = 9112707799) 0.0 0.0-10.0 NRBC x10^3 (test code = 0356787734) See_Comment [Automated messa ge] The system which generated this result transmitted reference range: 10*3/?L. The reference range was not used to interpret this result as normal/abnormal. GRAN MAT (NEUT) % (test code = 770-8) 88.3 % IMM GRAN % (test code = 9122946179) 1.20 % LYMPH % (test code = 736-9) 3.1 % MONO % (test code = 5905-5) 6.9 % EOS % (test code = 713-8) 0.4 % BASO % (test code = 706-2) 0.1 % GRAN MAT x10^3(ANC) (test code = 7515036067) 6.56 10*3/uL 1.99-6.95 IMM GRAN x10^3 (test code = 0622687274) 0.09 10*3/uL 0.00-0.06 H LYMPH x10^3 (test code = 731-0) 0.23 10*3/uL 1.09-3.23 L MONO x10^3 (test code = 742-7) 0.51 10*3/uL 0.36-1.02 EOS x10^3 (test code = 711-2) 0.03 10*3/uL 0.06-0.53 L BASO x10^3 (test code = 704-7) 0.01-0.09 Lab Interpretation (test code = 76265-2) Abnormal [facility] with Cslu3574-86-36 20:26:53* Test Item Value Reference Range Interpretation [...] 33.3 g/dL 31.2-35.0 RDW-SD (test code = 60022-7) 49.1 fL 38.5-51.6 RDW-CV (test code = 788-0) 14.4 % 12.1-15.4 PLT (test code = 777-3) 91 150-328 L MPV (test code = 54353-3) 11.9 fL 9.8-13.0 IPF % (test code = 7206091390) 6.2 % 1.2-10.7 Platelet count measured by fluorescence method. NRBC/100 WBC (test code = 1921665959) 0.0 0.0-10.0 NRBC x10^3 (test code = 2077554032) See_Comment [Automated [employer]] The system which generated this result transmitted reference range: 10*3/?L. The reference range was not used to interpret this result as normal/abnormal. GRAN MAT (NEUT) % (test code = 770-8) 88.3 % IMM GRAN % (test code = 4708273358) 1.20 % LYMPH % (test code = 736-9) 3.1 % MONO % (test code = 5905-5) 6.9 % EOS % (test code = 713-8) 0.4 % BASO % (test code = 706-2) 0.1 % GRAN MAT x10^3(ANC) (test code = 5173959104) 6.56 10*3/uL 1.99-6.95 IMM GRAN x10^3 (test code = 6999790566) 0.09 10*3/uL 0.00-0.06 H LYMPH x10^3 (test code = 731-0) 0.23 10*3/uL 1.09-3.23 L MONO x10^3 (test code = 742-7) 0.51 10*3/uL 0.36-1.02 EOS x10^3 (test code = 711-2) 0.03 10*3/uL 0.06-0.53 L BASO x10^3 (test code = 704-7) 0.01-0.09 Lab Interpretation (test code = 47353-5) Abnormal [facility] with Jejh9581-99-38 20:26:53* Test Item Value Reference Range Interpretation [...] 33.3 g/dL 31.2-35.0 RDW-SD (test code = 25918-1) 49.1 fL 38.5-51.6 RDW-CV (test code = 788-0) 14.4 % 12.1-15.4 PLT (test code = 777-3) 91 150-328 L MPV (test code = 42494-7) 11.9 fL 9.8-13.0 IPF % (test code = 5080251268) 6.2 % 1.2-10.7 Platelet count measured by fluorescence method. NRBC/100 WBC (test code = 8009284232) 0.0 0.0-10.0 NRBC x10^3 (test code = 6891647673) See_Comment [Automated messa ge] The system which generated this result transmitted reference range: 10*3/?L. The reference range was not used to interpret this result as normal/abnormal. GRAN MAT (NEUT) % (test code = 770-8) 88.3 % IMM GRAN % (test code = 6689425066) 1.20 % LYMPH % (test code = 736-9) 3.1 % MONO % (test code = 5905-5) 6.9 % EOS % (test code = 713-8) 0.4 % BASO % (test code = 706-2) 0.1 % GRAN MAT x10^3(ANC) (test code = 2022422531) 6.56 10*3/uL 1.99-6.95 IMM GRAN x10^3 (test code = 1201990489) 0.09 10*3/uL 0.00-0.06 H LYMPH x10^3 (test code = 731-0) 0.23 10*3/uL 1.09-3.23 L MONO x10^3 (test code = 742-7) 0.51 10*3/uL 0.36-1.02 EOS x10^3 (test code = 711-2) 0.03 10*3/uL 0.06-0.53 L BASO x10^3 (test code = 704-7) 0.01-0.09 Lab Interpretation (test code = 38065-2) Abnormal [place] 03567024-03-12 20:00:06* Test Item Value Reference Range Interpretation Comme [facility] APTT Patient (test code = 3173-2) 52 26-36 H Lab Interpretation (test cod e = 11369-5) [facility] 20:00:06* Test Item Value Reference Range Interpretation Comme [facility] Fibrinogen (test code = 6020804173) 188 mg/dL 167-453 Lab Interpretation (test cod e = 35656-7) Normal [facility] / [id number] 20:00:06* Test Item Value Reference Range Interpretation Comme [facility] PROTIME PATIENT (test code = 5964-2) 13.0 10.1-12.6 H INR (test code = 6301-6) 1.1 Normal INR <1.1; Warfarin Therapeutic range 2.0 to 3.0 or 2.5 to 3.5, depending upon the indications. Lab Interpretation (test code = 97575-4) [facility] Test Item Value Reference Range Interpretation Comme [facility] APTT Patient (test code = 3173-2) 52 26-36 H Lab Interpretation (test cod e = 96697-8) [facility]normal [facility]2024-[facility]-12 20:00:06* Test Item Value Reference Range Interpretation Comme nts Fibrinogen (test code = 3260972125) 188 mg/dL 167-453 Lab Interpretation (test cod e = 60258-7) Normal [facility] / [id number] 20:00:06* Test Item Value Reference Range Interpretation Comme nts PROTIME PATIENT (test code = 5964-2) 13.0 10.1-12.6 H INR (test code = 6301-6) 1.1 Normal INR <1.1; Warfarin Therapeutic range 2.0 to 3.0 or 2.5 to 3.5, depending upon the indications. Lab Interpretation (test code = 46511-7) [facility]normal [facility]2024-03-12 20:00:06* Test Item Value Reference Range Interpretation Comme [facility] APTT Patient (test code = 3173-2) 52 26-36 H Lab Interpretation (test cod e = 97768-6) [facility]normal [facility]2024-[facility]-12 20:00:06* Test Item Value Reference Range Interpretation Comme nts Fibrinogen (test code = 5122856445) 188 mg/dL 167-453 Lab Interpretation (test cod e = 41447-6) Normal [facility] / [id number] 20:00:06* Test Item Value Reference Range Interpretation Comme nts PROTIME PATIENT (test code = 5964-2) 13.0 10.1-12.6 H INR (test code = 6301-6) 1.1 Normal INR <1.1; Warfarin Therapeutic range 2.0 to 3.0 or 2.5 to 3.5, depending upon the indications. Lab Interpretation (test code = 69563-8) Abnormal [facility]2024-03-12 19:49:16* Test Item Value Reference Range Interpretation Comme nts MAGNESIUM (test code = 0790058043) 4.3 mg/dL 1.7-2.4 H Lab Interpretation (test cod e = 97530-1) [facility]* Test Item Value Reference Range Interpretation Comme nts MAGNESIUM (test code = 0735282523) 4.3 mg/dL 1.7-2.4 H Lab Interpretation (test cod e = 65180-8) Abnormal [facility]2024-03-12 19:49:16* Test Item Value Reference Range Interpretation Comme nts MAGNESIUM (test code = 9019313483) 4.3 mg/dL 1.7-2.4 H Lab Interpretation (test cod e = 53162-5) Abnormal [facility] Metabolic Panel (NA, K, CL, CO2, GLUCOSE, BUN, CREATININE, CA)2023-07-08 19:48:44* Test Item Value Reference Range Interpretation Comme nts NA (test code = 9007749835) 137 mmol/L 135-145 K (test code = 7228127234) 5.1 mmol/L 3.5-5.0 H CL (test code = 7924166878) 114 mmol/L 98-108 H CO2 TOTAL (test code = 1562516909) 20 mmol/L 23-31 L AGAP (test code = 9866767148) 3 2-16 BUN (test code = 9723531050) 14 mg/dL 7-23 GLUCOSE (test code = 4123464791) 165 mg/dL 70-110 H CREATININE (test code = 2160-0) 1.20 mg/dL 0.60-1.25 CALCIUM (test code = 2724302438) 8.6 mg/dL 8.6-10.6 eGFR (test code = 06926-6) 66.3 mL/min/1.73m2 CKD-EPI eGFR (2020). Assuming creatinine has been stable day-to-day for at least three months, the eGFR indicates Category G2 (60 - 89 mL/min/1.73 m2) Lab Interpretation (test code = 44341-5) [facility]normal [facility]2024-03-12 19:48:44* Test Item Value Reference Range Interpretation Comme nts PHOSPHORUS (test code = 9856732608) 2.2 mg/dL 2.5-5.0 L Lab Interpretation (test cod e = 79122-3) Abnormal [facility] Metabolic Panel (NA, K, CL, CO2, GLUCOSE, BUN, CREATININE, CA)2023-07-08 19:48:44* Test Item Value Reference Range Interpretation Comme nts NA (test code = 9649214109) 137 mmol/L 135-145 K (test code = 1368060342) 5.1 mmol/L 3.5-5.0 H CL (test code = 5988761161) 114 mmol/L 98-108 H CO2 TOTAL (test code = 9932755558) 20 mmol/L 23-31 L AGAP (test code = 0859587070) 3 2-16 BUN (test code = 5026692482) 14 mg/dL 7-23 GLUCOSE (test code = 7262838823) 165 mg/dL 70-110 H CREATININE (test code = 2160-0) 1.20 mg/dL 0.60-1.25 CALCIUM (test code = 4448399765) 8.6 mg/dL 8.6-10.6 eGFR (test code = 14714-4) 66.3 mL/min/1.73m2 CKD-EPI eGFR (2020). Assuming creatinine has been stable day-to-day for at least three months, the eGFR indicates Category G2 (60 - 89 mL/min/1.73 m2) Lab Interpretation (test code = 17717-4) Abnormal [facility]2024-03-12 19:48:44* Test Item Value Reference Range Interpretation Comme nts PHOSPHORUS (test code = 6423385136) 2.2 mg/dL 2.5-5.0 L Lab Interpretation (test cod e = 97344-5) Abnormal [facility] (NA, K, CL, CO2, GLUCOSE, BUN, CREATININE, CA)2023-07-08 19:48:44* Test Item Value Reference Range Interpretation Comme nts NA (test code = 1325534129) 137 mmol/L 135-145 K (test code = 8138147582) 5.1 mmol/L 3.5-5.0 H CL (test code = 7605725306) 114 mmol/L 98-108 H CO2 TOTAL (test code = 9281033851) 20 mmol/L 23-31 L AGAP (test code = 7475942049) 3 2-16 BUN (test code = 9833919016) 14 mg/dL 7-23 GLUCOSE (test code = 5379502778) 165 mg/dL 70-110 H CREATININE (test code = 2160-0) 1.20 mg/dL 0.60-1.25 CALCIUM (test code = 4360134862) 8.6 mg/dL 8.6-10.6 eGFR (test code = 55138-8) 66.3 mL/min/1.73m2 CKD-EPI eGFR (2020). Assuming creatinine has been stable day-to-day for at least three months, the eGFR indicates Category G2 (60 - 89 mL/min/1.73 m2) Lab Interpretation (test code = 18148-8) Abnormal [facility]2024-03-12 19:48:44* Test Item Value Reference Range Interpretation Comme nts PHOSPHORUS (test code = 2641212773) 2.2 mg/dL 2.5-5.0 L Lab Interpretation (test cod e = 65316-1) Abnormal [facility] 20 + Lactic Acid TGR3250-41-03 19:22:31* Test Item Value Reference Range Interpretation Comme nts PH (test code = 2) 7.41 7.35-7.45 PCO2 (test code = 6284221278) 31 35-45 L PO2 (test code = 3780639776) 126 80-100 H HCO3 (test code = 1353566257) 20 22-26 L BE (test code = 1780471405) -4.8 -3.0-3.0 L THB (test code = 1476257519) 9.4 g/dL 13.5-18.0 L %O2HB (test code = 7347872113) 98.0 % 94.0-99.0 %COHB ART (test code = 2777156857) 0.3 % 0.0-1.5 %METHB ART (test code = 9003589665) 0.3 % 0.4-1.5 L VOL%O2 ART (test code = 9610669060) 13.2 % 15.0-23.0 L NA (test code = 7144869284) 137 mmol/L 135-145 K+ (test code = 7439966743) 5.0 mmol/L 3.5-5.0 AC CA IONZ (test code = 1281258072) 4.90 mg/dL 4.50-5.30 GLUCOSE (test code = 5837085808) 165 mg/dL 70-110 H LACTIC ACID (test code = 5710203813) 1.11 mmol/L 0.50-2.20 Lab Interpretation (test cod e = 27163-6) Abnormal [facility] + Lactic Acid ZYB8977-06-65 19:22:31* Test Item Value Reference Range Interpretation Comme nts PH (test code = 2) 7.41 7.35-7.45 PCO2 (test code = 9260765063) 31 35-45 L PO2 (test code = 9502192799) 126 80-100 H HCO3 (test code = 6575926517) 20 22-26 L BE (test code = 5732837334) -4.8 -3.0-3.0 L THB (test code = 9704117853) 9.4 g/dL 13.5-18.0 L %O2HB (test code = 3913440604) 98.0 % 94.0-99.0 %COHB ART (test code = 3802786079) 0.3 % 0.0-1.5 %METHB ART (test code = 2443057271) 0.3 % 0.4-1.5 L VOL%O2 ART (test code = 2066220635) 13.2 % 15.0-23.0 L NA (test code = 5645485231) 137 mmol/L 135-145 K+ (test code = 1242798194) 5.0 mmol/L 3.5-5.0 AC CA IONZ (test code = 2024104475) 4.90 mg/dL 4.50-5.30 GLUCOSE (test code = 7565628265) 165 mg/dL 70-110 H LACTIC ACID (test code = 7971429912) 1.11 mmol/L 0.50-2.20 Lab Interpretation (test cod e = 72718-1) Abnormal [facility] + Lactic Acid OTM6220-96-00 19:22:31* Test Item Value Reference Range Interpretation Comme nts PH (test code = 2) 7.41 7.35-7.45 PCO2 (test code = 6326205122) 31 35-45 L PO2 (test code = 9278601646) 126 80-100 H HCO3 (test code = 1098789185) 20 22-26 L BE (test code = 6592140058) -4.8 -3.0-3.0 L THB (test code = 2391383317) 9.4 g/dL 13.5-18.0 L %O2HB (test code = 9174090858) 98.0 % 94.0-99.0 %COHB ART (test code = 8603934989) 0.3 % 0.0-1.5 %METHB ART (test code = 2928209398) 0.3 % 0.4-1.5 L VOL%O2 ART (test code = 3765298921) 13.2 % 15.0-23.0 L NA (test code = 0678494585) 137 mmol/L 135-145 K+ (test code = 8089025242) 5.0 mmol/L 3.5-5.0 AC CA IONZ (test code = 2722301918) 4.90 mg/dL 4.50-5.30 GLUCOSE (test code = 1876115954) 165 mg/dL 70-110 H LACTIC ACID (test code = 5886453494) 1.11 mmol/L 0.50-2.20 Lab Interpretation (test cod e = 03953-0) Abnormal [facility] Ltmxeoge8532-93-64 18:02:28* Test Item Value Reference Range Interpretation Comme nts PH (test code = 2) 7.40 7.35-7.45 PCO2 (test code = 0601883240) 32 35-45 L PO2 (test code = 5453400942) 621 80-100 H BE (test code = 2872672453) -5.0 -3.0-3.0 L HCO3 (test code = 4557288654) 19 22-26 L %O2HB (test code = 6608526354) 100.0 % 95.0-98.0 H NA (test code = 0199290834) 137 mmol/L 135-145 K+ (test code = 3242000963) 4.2 mmol/L 3.5-5.0 AC CA IONZ (test code = 5934029371) 3.90 mg/dL 4.50-5.30 L GLUCOSE (test code = 6014704070) 110 mg/dL 70-110 AC Hematocrit (test code = 8555379787) 21 40-54 LL THB (test code = 1734956535) 7.1 g/dL 13.5-18.0 LL AC TC02 (test code = 4819201934) 20 mmol/L See_Comment L [Automated messa ge] The system which generated this result transmitted reference range: 23-27 mmol/L. The reference range was not used to interpret this result as normal/abnormal. Lab Interpretation (test code = 67346-7) Abnormal [facility] Redalvsd4627-97-50 18:02:28* Test Item Value Reference Range Interpretation Comme nts PH (test code = 2) 7.36 7.35-7.45 PCO2 (test code = 8560713836) 41 35-45 PO2 (test code = 8762939103) 307 80-100 H BE (test code = 9861787337) -2.0 -3.0-3.0 HCO3 (test code = 5053443452) 23 22-26 %O2HB (test code = 9361631016) 100.0 % 95.0-98.0 H NA (test code = 0304057939) 136 mmol/L 135-145 K+ (test code = 5018719183) 5.6 mmol/L 3.5-5.0 H AC CA IONZ (test code = 2526809505) 4.90 mg/dL 4.50-5.30 GLUCOSE (test code = 0096659733) 156 mg/dL 70-110 H AC Hematocrit (test code = 3702294742) 27 40-54 L THB (test code = 6902918542) 9.2 g/dL 13.5-18.0 L AC TC02 (test code = 5555618983) 24 mmol/L See_Comment [Automated messa ge] The system which generated this result transmitted reference range: 23-27 mmol/L. The reference range was not used to interpret this result as normal/abnormal. Lab Interpretation (test code = 49915-3) Abnormal [facility] Jdkteemc9384-75-98 18:02:28* Test Item Value Reference Range Interpretation Comme nts PH (test code = 2) 7.33 7.35-7.45 L PCO2 (test code = 4449201111) 42 35-45 PO2 (test code = 8170340829) 265 80-100 H BE (test code = 8628551501) -4.0 -3.0-3.0 L HCO3 (test code = 7062448470) 22 22-26 %O2HB (test code = 5023626645) 100.0 % 95.0-98.0 H NA (test code = 0521933198) 136 mmol/L 135-145 K+ (test code = 3373792923) 6.3 mmol/L 3.5-5.0 HH AC CA IONZ (test code = 8059906795) 5.10 mg/dL 4.50-5.30 GLUCOSE (test code = 4727388453) 178 mg/dL 70-110 H AC Hematocrit (test code = 7469585553) 28 40-54 L THB (test code = 0032309433) 9.5 g/dL 13.5-18.0 L AC TC02 (test code = 5423884946) 23 mmol/L See_Comment [Automated [employer]] The system which generated this result transmitted reference range: 23-27 mmol/L. The reference range was not used to interpret this result as normal/abnormal. Lab Interpretation (test code = 90134-2) Abnormal [facility] Fjikbagr6804-23-18 18:02:28* Test Item Value Reference Range Interpretation Comme nts PH (test code = 2) 7.37 7.35-7.45 PCO2 (test code = 5350089352) 38 35-45 PO2 (test code = 5833696271) 283 80-100 H BE (test code = 8683016836) -4.0 -3.0-3.0 L HCO3 (test code = 2994866323) 22 22-26 %O2HB (test code = 8033920151) 100.0 % 95.0-98.0 H NA (test code = 8169582295) 137 mmol/L 135-145 K+ (test code = 4865550613) 6.1 mmol/L 3.5-5.0 HH AC CA IONZ (test code = 5601376459) 4.90 mg/dL 4.50-5.30 GLUCOSE (test code = 9429095868) 198 mg/dL 70-110 H AC Hematocrit (test code = 7224281338) 27 40-54 L THB (test code = 2948687416) 9.2 g/dL 13.5-18.0 L AC TC02 (test code = 9927621058) 23 mmol/L See_Comment [Automated messa ge] The system which generated this result transmitted reference range: 23-27 mmol/L. The reference range was not used to interpret this result as normal/abnormal. Lab Interpretation (test code = 67926-5) Abnormal [facility] Yumllnfp8055-38-64 18:02:28* Test Item Value Reference Range Interpretation Comme nts PH (test code = 2) 7.37 7.35-7.45 PCO2 (test code = 8232558212) 34 35-45 L PO2 (test code = 3066798990) 283 80-100 H BE (test code = 7137703599) -5.0 -3.0-3.0 L HCO3 (test code = 9686320149) 20 22-26 L %O2HB (test code = 6965436473) 100.0 % 95.0-98.0 H NA (test code = 7579222713) 137 mmol/L 135-145 K+ (test code = 7418748805) 6.4 mmol/L 3.5-5.0 HH AC CA IONZ (test code = 1333526562) 4.80 mg/dL 4.50-5.30 GLUCOSE (test code = 1180610980) 183 mg/dL 70-110 H AC Hematocrit (test code = 8912604066) 26 40-54 L THB (test code = 9742308876) 8.8 g/dL 13.5-18.0 L AC TC02 (test code = 8889548395) 21 mmol/L See_Comment L [Automated messa ge] The system which generated this result transmitted reference range: 23-27 mmol/L. The reference range was not used to interpret this result as normal/abnormal. Lab Interpretation (test code = 32667-7) Abnormal [facility] Zsdiaxjb9029-65-57 18:02:28* Test Item Value Reference Range Interpretation Comme nts PH (test code = 2) 7.31 7.35-7.45 L PCO2 (test code = 6768637140) 38 35-45 PO2 (test code = 7973415733) 154 80-100 H BE (test code = 7048962326) -7.0 -3.0-3.0 L HCO3 (test code = 0914023421) 19 22-26 L %O2HB (test code = 6725086183) 99.0 % 95.0-98.0 H NA (test code = 2828462684) 139 mmol/L 135-145 K+ (test code = 8161282683) 5.5 mmol/L 3.5-5.0 H AC CA IONZ (test code = 2893490834) 5.50 mg/dL 4.50-5.30 H GLUCOSE (test code = 9784799690) 164 mg/dL 70-110 H AC Hematocrit (test code = 1962217747) 20 40-54 LL THB (test code = 3292850976) 6.8 g/dL 13.5-18.0 LL AC TC02 (test code = 7965199907) 20 mmol/L See_Comment L [Automated [employer]] The system which generated this result transmitted reference range: 23-27 mmol/L. The reference range was not used to interpret this result as normal/abnormal. Lab Interpretation (test code = 08773-9) Abnormal [facility] Vfaporjk1509-03-12 18:02:28* Test Item Value Reference Range Interpretation Comme nts PH (test code = 2) 7.40 7.35-7.45 PCO2 (test code = 8069267614) 32 35-45 L PO2 (test code = 6169069554) 621 80-100 H BE (test code = 7155965092) -5.0 -3.0-3.0 L HCO3 (test code = 8336808792) 19 22-26 L %O2HB (test code = 1238865395) 100.0 % 95.0-98.0 H NA (test code = 7530810363) 137 mmol/L 135-145 K+ (test code = 6689257428) 4.2 mmol/L 3.5-5.0 AC CA IONZ (test code = 0479270908) 3.90 mg/dL 4.50-5.30 L GLUCOSE (test code = 3648646638) 110 mg/dL 70-110 AC Hematocrit (test code = 6380488642) 21 40-54 LL THB (test code = 4730817110) 7.1 g/dL 13.5-18.0 LL AC TC02 (test code = 7181074630) 20 mmol/L See_Comment L [Automated messa ge] The system which generated this result transmitted reference range: 23-27 mmol/L. The reference range was not used to interpret this result as normal/abnormal. Lab Interpretation (test code = 84721-4) Abnormal [facility] [id number] 18:02:28* Test Item Value Reference Range Interpretation Comme nts PH (test code = 2) 7.36 7.35-7.45 PCO2 (test code = 7375050044) 41 35-45 PO2 (test code = 9297574983) 307 80-100 H BE (test code = 4863341665) -2.0 -3.0-3.0 HCO3 (test code = 2516446944) 23 22-26 %O2HB (test code = 7710984291) 100.0 % 95.0-98.0 H NA (test code = 1868455814) 136 mmol/L 135-145 K+ (test code = 8175888520) 5.6 mmol/L 3.5-5.0 H AC CA IONZ (test code = 0989863738) 4.90 mg/dL 4.50-5.30 GLUCOSE (test code = 1005513703) 156 mg/dL 70-110 H AC Hematocrit (test code = 9845494003) 27 40-54 L THB (test code = 2697299877) 9.2 g/dL 13.5-18.0 L AC TC02 (test code = 6262443646) 24 mmol/L See_Comment [Automated messa ge] The system which generated this result transmitted reference range: 23-27 mmol/L. The reference range was not used to interpret this result as normal/abnormal. Lab Interpretation (test code = 72278-5) Abnormal [facility] [id number] 18:02:28* Test Item Value Reference Range Interpretation Comme nts PH (test code = 2) 7.33 7.35-7.45 L PCO2 (test code = 3190406009) 42 35-45 PO2 (test code = 9131739659) 265 80-100 H BE (test code = 7340060986) -4.0 -3.0-3.0 L HCO3 (test code = 8568475893) 22 22-26 %O2HB (test code = 4807254815) 100.0 % 95.0-98.0 H NA (test code = 7336622417) 136 mmol/L 135-145 K+ (test code = 0547990153) 6.3 mmol/L 3.5-5.0 HH AC CA IONZ (test code = 9939759337) 5.10 mg/dL 4.50-5.30 GLUCOSE (test code = 3012996649) 178 mg/dL 70-110 H AC Hematocrit (test code = 1120346459) 28 40-54 L THB (test code = 1934840548) 9.5 g/dL 13.5-18.0 L AC TC02 (test code = 3807384981) 23 mmol/L See_Comment [Automated [employer]] The system which generated this result transmitted reference range: 23-27 mmol/L. The reference range was not used to interpret this result as normal/abnormal. Lab Interpretation (test code = 85369-2) Abnormal [facility] [id number] 18:02:28* Test Item Value Reference Range Interpretation Comme nts PH (test code = 2) 7.37 7.35-7.45 PCO2 (test code = 6426607826) 38 35-45 PO2 (test code = 0020828253) 283 80-100 H BE (test code = 2246647372) -4.0 -3.0-3.0 L HCO3 (test code = 2373458104) 22 22-26 %O2HB (test code = 9305356072) 100.0 % 95.0-98.0 H NA (test code = 9850466444) 137 mmol/L 135-145 K+ (test code = 4654088243) 6.1 mmol/L 3.5-5.0 HH AC CA IONZ (test code = 5506980122) 4.90 mg/dL 4.50-5.30 GLUCOSE (test code = 7903063981) 198 mg/dL 70-110 H AC Hematocrit (test code = 0874139864) 27 40-54 L THB (test code = 4760217212) 9.2 g/dL 13.5-18.0 L AC TC02 (test code = 6523713094) 23 mmol/L See_Comment [Automated messa ge] The system which generated this result transmitted reference range: 23-27 mmol/L. The reference range was not used to interpret this result as normal/abnormal. Lab Interpretation (test code = 93015-1) Abnormal [facility] Wsrcohfr6609-45-00 18:02:28* Test Item Value Reference Range Interpretation Comme nts PH (test code = 2) 7.37 7.35-7.45 PCO2 (test code = 8195995283) 34 35-45 L PO2 (test code = 2549969520) 283 80-100 H BE (test code = 0649105605) -5.0 -3.0-3.0 L HCO3 (test code = 6296412079) 20 22-26 L %O2HB (test code = 4038510363) 100.0 % 95.0-98.0 H NA (test code = 1946063202) 137 mmol/L 135-145 K+ (test code = 7676382941) 6.4 mmol/L 3.5-5.0 HH AC CA IONZ (test code = 7899763204) 4.80 mg/dL 4.50-5.30 GLUCOSE (test code = 4487336781) 183 mg/dL 70-110 H AC Hematocrit (test code = 9062808065) 26 40-54 L THB (test code = 9495149263) 8.8 g/dL 13.5-18.0 L AC TC02 (test code = 5276137929) 21 mmol/L See_Comment L [Automated messa ge] The system which generated this result transmitted reference range: 23-27 mmol/L. The reference range was not used to interpret this result as normal/abnormal. Lab Interpretation (test code = 78220-9) Abnormal [facility] Jhrspepc0677-67-67 18:02:28* Test Item Value Reference Range Interpretation Comme nts PH (test code = 2) 7.31 7.35-7.45 L PCO2 (test code = 4718277220) 38 35-45 PO2 (test code = 7097460796) 154 80-100 H BE (test code = 6547347462) -7.0 -3.0-3.0 L HCO3 (test code = 9804847361) 19 22-26 L %O2HB (test code = 0008095882) 99.0 % 95.0-98.0 H NA (test code = 7738616747) 139 mmol/L 135-145 K+ (test code = 1579865431) 5.5 mmol/L 3.5-5.0 H AC CA IONZ (test code = 2072567197) 5.50 mg/dL 4.50-5.30 H GLUCOSE (test code = 2716351734) 164 mg/dL 70-110 H AC Hematocrit (test code = 2546428208) 20 40-54 LL THB (test code = 9321696171) 6.8 g/dL 13.5-18.0 LL AC TC02 (test code = 5499186746) 20 mmol/L See_Comment L [Automated messa ge] The system which generated this result transmitted reference range: 23-27 mmol/L. The reference range was not used to interpret this result as normal/abnormal. Lab Interpretation (test code = 02302-0) Abnormal [facility] Mjugygpa0218-23-94 18:02:28* Test Item Value Reference Range Interpretation Comme nts PH (test code = 2) 7.40 7.35-7.45 PCO2 (test code = 2710509170) 32 35-45 L PO2 (test code = 8470831338) 621 80-100 H BE (test code = 9251513562) -5.0 -3.0-3.0 L HCO3 (test code = 0406035456) 19 22-26 L %O2HB (test code = 4184675080) 100.0 % 95.0-98.0 H NA (test code = 0741792237) 137 mmol/L 135-145 K+ (test code = 9548633630) 4.2 mmol/L 3.5-5.0 AC CA IONZ (test code = 6438421442) 3.90 mg/dL 4.50-5.30 L GLUCOSE (test code = 0864543363) 110 mg/dL 70-110 AC Hematocrit (test code = 3747751307) 21 40-54 LL THB (test code = 8365349132) 7.1 g/dL 13.5-18.0 LL AC TC02 (test code = 1289860752) 20 mmol/L See_Comment L [Automated messa ge] The system which generated this result transmitted reference range: 23-27 mmol/L. The reference range was not used to interpret this result as normal/abnormal. Lab Interpretation (test code = 68190-5) Abnormal [facility] Ofinqdgk4741-24-05 18:02:28* Test Item Value Reference Range Interpretation Comme nts PH (test code = 2) 7.36 7.35-7.45 PCO2 (test code = 6635356008) 41 35-45 PO2 (test code = 7715260484) 307 80-100 H BE (test code = 7072123026) -2.0 -3.0-3.0 HCO3 (test code = 7543549100) 23 22-26 %O2HB (test code = 0102316402) 100.0 % 95.0-98.0 H NA (test code = 8946903540) 136 mmol/L 135-145 K+ (test code = 2594643076) 5.6 mmol/L 3.5-5.0 H AC CA IONZ (test code = 0518381018) 4.90 mg/dL 4.50-5.30 GLUCOSE (test code = 6929241018) 156 mg/dL 70-110 H AC Hematocrit (test code = 0791607508) 27 40-54 L THB (test code = 8545070008) 9.2 g/dL 13.5-18.0 L AC TC02 (test code = 7238650498) 24 mmol/L See_Comment [Automated messa ge] The system which generated this result transmitted reference range: 23-27 mmol/L. The reference range was not used to interpret this result as normal/abnormal. Lab Interpretation (test code = 44765-9) Abnormal [facility] Bvcroajv6124-22-30 18:02:28* Test Item Value Reference Range Interpretation Comme nts PH (test code = 2) 7.33 7.35-7.45 L PCO2 (test code = 5889234272) 42 35-45 PO2 (test code = 1216699166) 265 80-100 H BE (test code = 0172706022) -4.0 -3.0-3.0 L HCO3 (test code = 1260355939) 22 22-26 %O2HB (test code = 1873178003) 100.0 % 95.0-98.0 H NA (test code = 2930791184) 136 mmol/L 135-145 K+ (test code = 6947267240) 6.3 mmol/L 3.5-5.0 HH AC CA IONZ (test code = 6852799935) 5.10 mg/dL 4.50-5.30 GLUCOSE (test code = 1811351851) 178 mg/dL 70-110 H AC Hematocrit (test code = 7281186436) 28 40-54 L THB (test code = 8767698639) 9.5 g/dL 13.5-18.0 L AC TC02 (test code = 9903195909) 23 mmol/L See_Comment [Automated [employer]] The system which generated this result transmitted reference range: 23-27 mmol/L. The reference range was not used to interpret this result as normal/abnormal. Lab Interpretation (test code = 84241-7) Abnormal [facility] Uawduwvx5238-13-13 18:02:28* Test Item Value Reference Range Interpretation Comme nts PH (test code = 2) 7.37 7.35-7.45 PCO2 (test code = 8129775184) 38 35-45 PO2 (test code = 8137452970) 283 80-100 H BE (test code = 0464936597) -4.0 -3.0-3.0 L HCO3 (test code = 3302395183) 22 22-26 %O2HB (test code = 4878418403) 100.0 % 95.0-98.0 H NA (test code = 4083619254) 137 mmol/L 135-145 K+ (test code = 1203546710) 6.1 mmol/L 3.5-5.0 HH AC CA IONZ (test code = 9545909843) 4.90 mg/dL 4.50-5.30 GLUCOSE (test code = 6962349264) 198 mg/dL 70-110 H AC Hematocrit (test code = 4471093514) 27 40-54 L THB (test code = 2878004687) 9.2 g/dL 13.5-18.0 L AC TC02 (test code = 3275973534) 23 mmol/L See_Comment [Automated messa ge] The system which generated this result transmitted reference range: 23-27 mmol/L. The reference range was not used to interpret this result as normal/abnormal. Lab Interpretation (test code = 30460-1) Abnormal [facility] Monhkndl2274-38-76 18:02:28* Test Item Value Reference Range Interpretation Comme nts PH (test code = 2) 7.37 7.35-7.45 PCO2 (test code = 1246697983) 34 35-45 L PO2 (test code = 8860791348) 283 80-100 H BE (test code = 6978307773) -5.0 -3.0-3.0 L HCO3 (test code = 4490045962) 20 22-26 L %O2HB (test code = 6382684064) 100.0 % 95.0-98.0 H NA (test code = 8100552810) 137 mmol/L 135-145 K+ (test code = 1332243078) 6.4 mmol/L 3.5-5.0 HH AC CA IONZ (test code = 3015941704) 4.80 mg/dL 4.50-5.30 GLUCOSE (test code = 8165601990) 183 mg/dL 70-110 H AC Hematocrit (test code = 0987410077) 26 40-54 L THB (test code = 0398681762) 8.8 g/dL 13.5-18.0 L AC TC02 (test code = 1169497322) 21 mmol/L See_Comment L [Automated messa ge] The system which generated this result transmitted reference range: 23-27 mmol/L. The reference range was not used to interpret this result as normal/abnormal. Lab Interpretation (test code = 35672-5) Abnormal [facility] Mppoivba1459-43-85 18:02:28* Test Item Value Reference Range Interpretation Comme nts PH (test code = 2) 7.31 7.35-7.45 L PCO2 (test code = 5936299225) 38 35-45 PO2 (test code = 0021886587) 154 80-100 H BE (test code = 9982991874) -7.0 -3.0-3.0 L HCO3 (test code = 1982210038) 19 22-26 L %O2HB (test code = 0027644512) 99.0 % 95.0-98.0 H NA (test code = 6735444887) 139 mmol/L 135-145 K+ (test code = 7809626213) 5.5 mmol/L 3.5-5.0 H AC CA IONZ (test code = 4295345161) 5.50 mg/dL 4.50-5.30 H GLUCOSE (test code = 6742828068) 164 mg/dL 70-110 H AC Hematocrit (test code = 0320812683) 20 40-54 LL THB (test code = 3748106871) 6.8 g/dL 13.5-18.0 LL AC TC02 (test code = 6372702488) 20 mmol/L See_Comment L [Automated messa ge] The system which generated this result transmitted reference range: 23-27 mmol/L. The reference range was not used to interpret this result as normal/abnormal. Lab Interpretation (test code = 96227-7) Abnormal [facility] Ixxgivqe0352-54-37 18:02:22* Test Item Value Reference Range Interpretation Comme nts PH (test code = 2) 7.38 7.35-7.45 PCO2 (test code = 8008601386) 38 35-45 PO2 (test code = 9265922193) 127 80-100 H BE (test code = 3228160455) -3.0 -3.0-3.0 HCO3 (test code = 6783114305) 23 22-26 %O2HB (test code = 1597107572) 99.0 % 95.0-98.0 H NA (test code = 9625125101) 138 mmol/L 135-145 K+ (test code = 6477970280) 3.7 mmol/L 3.5-5.0 AC CA IONZ (test code = 6828984879) 5.70 mg/dL 4.50-5.30 H GLUCOSE (test code = 1197018021) 101 mg/dL 70-110 AC Hematocrit (test code = 5320902787) 31 40-54 L THB (test code = 5348896484) 10.5 g/dL 13.5-18.0 L AC TC02 (test code = 0185386163) 24 mmol/L See_Comment [Automated messa ge] The system which generated this result transmitted reference range: 23-27 mmol/L. The reference range was not used to interpret this result as normal/abnormal. Lab Interpretation (test code = 02357-0) Abnormal [facility] Voorvcda7370-22-36 18:02:22* Test Item Value Reference Range Interpretation Comme nts PH (test code = 2) 7.38 7.35-7.45 PCO2 (test code = 5633923265) 38 35-45 PO2 (test code = 6975936611) 127 80-100 H BE (test code = 1339417454) -3.0 -3.0-3.0 HCO3 (test code = 3407861197) 23 22-26 %O2HB (test code = 3275955670) 99.0 % 95.0-98.0 H NA (test code = 7046407322) 138 mmol/L 135-145 K+ (test code = 9449286304) 3.7 mmol/L 3.5-5.0 AC CA IONZ (test code = 2999219666) 5.70 mg/dL 4.50-5.30 H GLUCOSE (test code = 7022274581) 101 mg/dL 70-110 AC Hematocrit (test code = 7123434738) 31 40-54 L THB (test code = 8937220985) 10.5 g/dL 13.5-18.0 L AC TC02 (test code = 7062724240) 24 mmol/L See_Comment [Automated messa ge] The system which generated this result transmitted reference range: 23-27 mmol/L. The reference range was not used to interpret this result as normal/abnormal. Lab Interpretation (test code = 89205-9) Abnormal [facility] Vyuqvlgw7484-18-53 18:02:22* Test Item Value Reference Range Interpretation Comme nts PH (test code = 2) 7.38 7.35-7.45 PCO2 (test code = 6218158519) 38 35-45 PO2 (test code = 0710107644) 127 80-100 H BE (test code = 6357543090) -3.0 -3.0-3.0 HCO3 (test code = 7926850589) 23 22-26 %O2HB (test code = 6197968734) 99.0 % 95.0-98.0 H NA (test code = 3724771823) 138 mmol/L 135-145 K+ (test code = 3837070684) 3.7 mmol/L 3.5-5.0 AC CA IONZ (test code = 4337309191) 5.70 mg/dL 4.50-5.30 H GLUCOSE (test code = 5071149749) 101 mg/dL 70-110 AC Hematocrit (test code = 0903477222) 31 40-54 L THB (test code = 4711308471) 10.5 g/dL 13.5-18.0 L AC TC02 (test code = 6278709035) 24 mmol/L See_Comment [Automated [employer]] The system which generated this result transmitted reference range: 23-27 mmol/L. The reference range was not used to interpret this result as normal/abnormal. Lab Interpretation (test code = 36258-2) [facility] 23:38:45* Test Item Value Reference Range Interpretation Comme nts MAGNESIUM (test code = 0940608782) 1.6 mg/dL 1.7-2.4 L Lab Interpretation (test cod e = 13950-1) [facility] 23:38:45* Test Item Value Reference Range Interpretation Comme nts MAGNESIUM (test code = 4289025259) 1.6 mg/dL 1.7-2.4 L Lab Interpretation (test cod e = 03099-8) [facility]normal [facility]24[facility]11 23:38:45* Test Item Value Reference Range Interpretation Comme nts MAGNESIUM (test code = 3333700912) 1.6 mg/dL 1.7-2.4 L Lab Interpretation (test cod e = 95678-1) Abnormal [facility] Partial Thrmplas Thl2127-78-07 23:25:22* Test Item Value Reference Range Interpretation Comme nts APTT Patient (test code = 3173-2) 86 26-36 H Lab Interpretation (test cod e = 33186-9) [facility]normal [facility] Ykm6408-27-72 23:25:22* Test Item Value Reference Range Interpretation Comme nts APTT Patient (test code = 3173-2) 86 26-36 H Lab Interpretation (test cod e = 63523-3) Abnormal [facility]rm[facility] Bkg4028-92-65 23:25:22* Test Item Value Reference Range Interpretation Comme nts APTT Patient (test code = 3173-2) 86 26-36 H Lab Interpretation (test cod e = 27531-7) [facility] Type [facility] Screen [...] (test code = 1185) Negative [facility] - Type and Screen expires [...] POSITIVE IAT (test code = 1185) [facility] - Type and Screen [...] (test code = 1185) Negative [facility] 2 Bysk2331-86-53 15:44:47ORDERING PHYSICIAN: JT ALEJANDRO. HISTORY: pre op exam TECHNIQUE: 2 views COMPARISON: 08/13/2019 FINDINGS: Lungs: ?Lungs are clear and hyperinflated. Pleura: ?No effusion or pleural disease is seen. ?Nopneumothorax. Mediastinum/Ellen: ?No masses or adenopathy. Heart: ?Cardiac shadow is prominent Other: ?No acute osseous abnormality is seen.[facility] 2 View 2023-07-07 15:44:47ORDERING PHYSICIAN: JT ALEJANDRO. HISTORY: pre op exam TECHNIQUE: 2 views COMPARISON: 08/13/2019 FINDINGS: Lungs: ?Lungs are clear and hyperinflated. Pleura: ?No effusion or pleural disease is seen. ?Nopneumothorax. Mediastinum/Ellen: ?No masses or adenopathy. Heart: ?Cardiac shadow is prominent Other: ?No acute osseous abnormality is seen.[facility] Chest 2 Istu3480-92-33 15:44:47ORDERING PHYSICIAN: JT ALEJANDRO. HISTORY: pre op exam TECHNIQUE: 2 views COMPARISON: 08/13/2019 FINDINGS: Lungs: ?Lungs are clear and hyperinflated. Pleura: ?No effusion or pleural disease is seen. ?No pneumothorax. Mediastinum/Ellen: ?No masses or adenopathy. Heart: ?Cardiac shadow is prominent Other: ?No acute osseous abnormality is seen.[facility] 2 Fngd0358-25-16 15:44:47ORDERING PHYSICIAN: JT ALEJANDRO. HISTORY: pre op exam TECHNIQUE: 2 views COMPARISON: 08/13/2019 FINDINGS: Lungs: ?Lungs are clear and hyperinflated. Pleura: ?No effusion or pleural disease is seen. ?Nopneumothorax. Mediastinum/Ellen: ?No masses or adenopathy. Heart: ?Cardiac shadow is prominent Other: ?No acute osseous abnormality is seen. [facility] with Jvjc0373-30-45 07:09:12* Test Item Value Reference Range Interpretation [...] 33.9 g/dL 31.2-35.0 RDW-SD (test code = 60195-8) 49.1 fL 38.5-51.6 RDW-CV (test code = 788-0) 14.5 % 12.1-15.4 PLT (test code = 777-3) 132 150-328 L MPV (test code = 12455-9) 12.0 fL 9.8-13.0 IPF % (test code = 2072587677) 5.4 % 1.2-10.7 Platelet count measured by fluorescence method. NRBC/100 WBC (test code = 4597386958) 0.0 0.0-10.0 NRBC x10^3 (test code = 7779262260) See_Comment [Automated [employer]] The system which generated this result transmitted reference range: 10*3/?L. The reference range was not used to interpret this result as normal/abnormal. GRAN MAT (NEUT) % (test code = 770-8) 66.3 % IMM GRAN % (test code = 4466011993) 0.40 % LYMPH % (test code = 736-9) 19.0 % MONO % (test code = 5905-5) 9.7 % EOS % (test code = 713-8) 3.5 % BASO % (test code = 706-2) 1.1 % GRAN MAT x10^3(ANC) (test code = 5055690635) 3.06 10*3/uL 1.99-6.95 IMM GRAN x10^3 (test code = 6700165108) 0.00-0.06 LYMPH x10^3 (test code = 731-0) 0.88 10*3/uL 1.09-3.23 L MONO x10^3 (test code = 742-7) 0.45 10*3/uL 0.36-1.02 EOS x10^3 (test code = 711-2) 0.16 10*3/uL 0.06-0.53 BASO x10^3 (test code = 704-7) 0.05 10*3/uL 0.01-0.09 Lab Interpretation (test code = 47173-3) Abnormal [facility] Metabolic Panel (NA, K, CL, CO2, GLUCOSE, BUN, CREATININE, CA)2023-07-06 07:09:12* Test Item Value Reference Range Interpretation Comme nts NA (test code = 2926674609) 138 mmol/L 135-145 K (test code = 8557810284) 3.8 mmol/L 3.5-5.0 CL (test code = 1934809768) 113 mmol/L 98-108 H CO2 TOTAL (test code = 0466280730) 22 mmol/L 23-31 L AGAP (test code = 5124996658) 3 2-16 BUN (test code = 4624779668) 20 mg/dL 7-23 GLUCOSE (test code = 4669208007) 101 mg/dL 70-110 CREATININE (test code = 2160-0) 1.63 mg/dL 0.60-1.25 H CALCIUM (test code = 9415575104) 9.7 mg/dL 8.6-10.6 eGFR (test code = 54695-4) 45.9 mL/min/1.73m2 CKD-EPI eGFR (2020). Assuming creatinine has been stable day-to-day for at least three months, the eGFR indicates Category G3a (45 - 59 mL/min/1.73 m2) Lab Interpretation (test code = 25614-3) [facility] 07:09:12* Test Item Value Reference Range Interpretation Comme nts MAGNESIUM (test code = 9536288929) 1.8 mg/dL 1.7-2.4 Lab Interpretation (test cod e = 32466-4) Normal [facility] with Mlsp2657-92-36 07:09:12* Test Item Value Reference Range Interpretation [...] 33.9 g/dL 31.2-35.0 RDW-SD (test code = 93863-6) 49.1 fL 38.5-51.6 RDW-CV (test code = 788-0) 14.5 % 12.1-15.4 PLT (test code = 777-3) 132 150-328 L MPV (test code = 94733-8) 12.0 fL 9.8-13.0 IPF % (test code = 4904496788) 5.4 % 1.2-10.7 Platelet count measured by fluorescence method. NRBC/100 WBC (test code = 1616570504) 0.0 0.0-10.0 NRBC x10^3 (test code = 5411427731) See_Comment [Automated [employer]] The system which generated this result transmitted reference range: 10*3/?L. The reference range was not used to interpret this result as normal/abnormal. GRAN MAT (NEUT) % (test code = 770-8) 66.3 % IMM GRAN % (test code = 4865765692) 0.40 % LYMPH % (test code = 736-9) 19.0 % MONO % (test code = 5905-5) 9.7 % EOS % (test code = 713-8) 3.5 % BASO % (test code = 706-2) 1.1 % GRAN MAT x10^3(ANC) (test code = 6331097245) 3.06 10*3/uL 1.99-6.95 IMM GRAN x10^3 (test code = 1933144503) 0.00-0.06 LYMPH x10^3 (test code = 731-0) 0.88 10*3/uL 1.09-3.23 L MONO x10^3 (test code = 742-7) 0.45 10*3/uL 0.36-1.02 EOS x10^3 (test code = 711-2) 0.16 10*3/uL 0.06-0.53 BASO x10^3 (test code = 704-7) 0.05 10*3/uL 0.01-0.09 Lab Interpretation (test code = 66081-4) Abnormal [facility] Metabolic Panel (NA, K, CL, CO2, GLUCOSE, BUN, CREATININE, CA)2023-07-06 07:09:12* Test Item Value Reference Range Interpretation Comme nts NA (test code = 5836982756) 138 mmol/L 135-145 K (test code = 1033444934) 3.8 mmol/L 3.5-5.0 CL (test code = 0321186526) 113 mmol/L 98-108 H CO2 TOTAL (test code = 0648439474) 22 mmol/L 23-31 L AGAP (test code = 9036789072) 3 2-16 BUN (test code = 8328218517) 20 mg/dL 7-23 GLUCOSE (test code = 0262433533) 101 mg/dL 70-110 CREATININE (test code = 2160-0) 1.63 mg/dL 0.60-1.25 H CALCIUM (test code = 0882577124) 9.7 mg/dL 8.6-10.6 eGFR (test code = 16577-0) 45.9 mL/min/1.73m2 CKD-EPI eGFR (2020). Assuming creatinine has been stable day-to-day for at least three months, the eGFR indicates Category G3a (45 - 59 mL/min/1.73 m2) Lab Interpretation (test code = 65198-1) [facility] 07:09:12* Test Item Value Reference Range Interpretation Comme nts MAGNESIUM (test code = 8182009014) 1.8 mg/dL 1.7-2.4 Lab Interpretation (test cod e = 83955-6) Normal [facility] with Yjtc4009-27-19 07:09:12* Test Item Value Reference Range Interpretation [...] 33.9 g/dL 31.2-35.0 RDW-SD (test code = 39196-4) 49.1 fL 38.5-51.6 RDW-CV (test code = 788-0) 14.5 % 12.1-15.4 PLT (test code = 777-3) 132 150-328 L MPV (test code = 26809-8) 12.0 fL 9.8-13.0 IPF % (test code = 4038257505) 5.4 % 1.2-10.7 Platelet count measured by fluorescence method. NRBC/100 WBC (test code = 8072979949) 0.0 0.0-10.0 NRBC x10^3 (test code = 2610570525) See_Comment [Automated [employer]] The system which generated this result transmitted reference range: 10*3/?L. The reference range was not used to interpret this result as normal/abnormal. GRAN MAT (NEUT) % (test code = 770-8) 66.3 % IMM GRAN % (test code = 3140695901) 0.40 % LYMPH % (test code = 736-9) 19.0 % MONO % (test code = 5905-5) 9.7 % EOS % (test code = 713-8) 3.5 % BASO % (test code = 706-2) 1.1 % GRAN MAT x10^3(ANC) (test code = 2080177568) 3.06 10*3/uL 1.99-6.95 IMM GRAN x10^3 (test code = 2535500895) 0.00-0.06 LYMPH x10^3 (test code = 731-0) 0.88 10*3/uL 1.09-3.23 L MONO x10^3 (test code = 742-7) 0.45 10*3/uL 0.36-1.02 EOS x10^3 (test code = 711-2) 0.16 10*3/uL 0.06-0.53 BASO x10^3 (test code = 704-7) 0.05 10*3/uL 0.01-0.09 Lab Interpretation (test code = 97949-9) Abnormal [facility] Metabolic Panel (NA, K, CL, CO2, GLUCOSE, BUN, CREATININE, CA)2023-07-06 07:09:12* Test Item Value Reference Range Interpretation Comme nts NA (test code = 7956066535) 138 mmol/L 135-145 K (test code = 0958853488) 3.8 mmol/L 3.5-5.0 CL (test code = 6502287834) 113 mmol/L 98-108 H CO2 TOTAL (test code = 2935683835) 22 mmol/L 23-31 L AGAP (test code = 6968030253) 3 2-16 BUN (test code = 1085502979) 20 mg/dL 7-23 GLUCOSE (test code = 0556176335) 101 mg/dL 70-110 CREATININE (test code = 2160-0) 1.63 mg/dL 0.60-1.25 H CALCIUM (test code = 3606230814) 9.7 mg/dL 8.6-10.6 eGFR (test code = 35917-3) 45.9 mL/min/1.73m2 CKD-EPI eGFR (2020). Assuming creatinine has been stable day-to-day for at least three months, the eGFR indicates Category G3a (45 - 59 mL/min/1.73 m2) Lab Interpretation (test code = 90007-5) [facility]* Test Item Value Reference Range Interpretation Comme nts MAGNESIUM (test code = 3622227691) 1.8 mg/dL 1.7-2.4 Lab Interpretation (test cod e = 85262-1) Normal [facility] with [id number] 07:09:12* Test Item Value Reference Range Interpretation [...] 33.9 g/dL 31.2-35.0 RDW-SD (test code = 63020-3) 49.1 fL 38.5-51.6 RDW-CV (test code = 788-0) 14.5 % 12.1-15.4 PLT (test code = 777-3) 132 150-328 L MPV (test code = 75952-4) 12.0 fL 9.8-13.0 IPF % (test code = 6051716156) 5.4 % 1.2-10.7 Platelet count measured by fluorescence method. NRBC/100 WBC (test code = 6935377847) 0.0 0.0-10.0 NRBC x10^3 (test code = 1811688273) See_Comment [Automated messa ge] The system which generated this result transmitted reference range: 10*3/?L. The reference range was not used to interpret this result as normal/abnormal. GRAN MAT (NEUT) % (test code = 770-8) 66.3 % IMM GRAN % (test code = 9004808638) 0.40 % LYMPH % (test code = 736-9) 19.0 % MONO % (test code = 5905-5) 9.7 % EOS % (test code = 713-8) 3.5 % BASO % (test code = 706-2) 1.1 % GRAN MAT x10^3(ANC) (test code = 6528825495) 3.06 10*3/uL 1.99-6.95 IMM GRAN x10^3 (test code = 7202661910) 0.00-0.06 LYMPH x10^3 (test code = 731-0) 0.88 10*3/uL 1.09-3.23 L MONO x10^3 (test code = 742-7) 0.45 10*3/uL 0.36-1.02 EOS x10^3 (test code = 711-2) 0.16 10*3/uL 0.06-0.53 BASO x10^3 (test code = 704-7) 0.05 10*3/uL 0.01-0.09 Lab Interpretation (test code = 09089-1) Abnormal [facility] Metabolic Panel (NA, K, CL, CO2, GLUCOSE, BUN, CREATININE, CA)2023-07-06 07:09:12* Test Item Value Reference Range Interpretation Comme nts NA (test code = 5072342133) 138 mmol/L 135-145 K (test code = 5788958101) 3.8 mmol/L 3.5-5.0 CL (test code = 9937182188) 113 mmol/L 98-108 H CO2 TOTAL (test code = 5005733818) 22 mmol/L 23-31 L AGAP (test code = 3008963394) 3 2-16 BUN (test code = 3160212511) 20 mg/dL 7-23 GLUCOSE (test code = 2964671252) 101 mg/dL 70-110 CREATININE (test code = 2160-0) 1.63 mg/dL 0.60-1.25 H CALCIUM (test code = 2468008303) 9.7 mg/dL 8.6-10.6 eGFR (test code = 13114-9) 45.9 mL/min/1.73m2 CKD-EPI eGFR (2020). Assuming creatinine has been stable day-to-day for at least three months, the eGFR indicates Category G3a (45 - 59 mL/min/1.73 m2) Lab Interpretation (test code = 97309-0) [facility] 07:09:12* Test Item Value Reference Range Interpretation Comme nts MAGNESIUM (test code = 2125085491) 1.8 mg/dL 1.7-2.4 Lab Interpretation (test cod e = 13855-5) Normal [facility] (for use with Heparin Infusion)2023-07-06 06:45:27* Test Item Value Reference Range Interpretation Comme nts APTT Patient (test code = 3173-2) 77 26-36 H Lab Interpretation (test cod e = 71999-3) Abnormal [facility] (for use with Heparin Infusion)2023-07-06 06:45:27* Test Item Value Reference Range Interpretation Comme [facility] APTT Patient (test code = 3173-2) 77 26-36 H Lab Interpretation (test cod e = 10682-4) [facility]for use with [facility] Infusion[facility]2023-07-06 06:45:27* Test Item Value Reference Range Interpretation Comme [facility] APTT Patient (test code = 3173-2) 77 26-36 H Lab Interpretation (test cod e = 88449-9) [facility]2023-07-06 06:45:27* Test Item Value Reference Range Interpretation Comme [facility] APTT Patient (test code = 3173-2) 77 26-36 H Lab Interpretation (test cod e = 05259-4) [facility]normal [facility] ([facility]2023-07-03 20:53:53* Test Item Value Reference Range Interpretation Comme [facility] Height (test code = 1314410896) 69 in Weight (test code = 1738314816) 200 lbs Systolic BP (test code = 8491164358) 170 mmHg Diastolic BP (test code = 8485042323) 89 mmHg Heart Rate (test code = 8634492285) 90 bpm LV GLS Endo Peak A2C () (test code = 9174991748) -17.10 % LV GLS Endo Peak A3C () (test code = 3397346024) -17.30 % LV GLS Endo Peak A4C () (test code = 9624314753) -9.20 % LV GLS Endo Peak Avg () (test code = 1325035287) -14.50 % BSA (test code = 3907630945) 2.07 m2 Ao root diam (test code = 7893837125) 3.00 cm Aortic root (test code = 7783178394) 3.0 cm Ao root annulus (test code = 6114099947) 3.0 cm LA size (test code = 9509185012) 4.4 cm LAV(MOD-sp4) (test code = 3521946323) 100.10 mL E wave decelartion time (test code = 9954209478) 0.28 s MV Peak E Zain (test code = 4951324274) 116.5 cm/s MV Peak A Zain (test code = 0637798649) 101.2 cm/s E/A ratio (test code = 1030554070) 1.15 ratio MV Prop V (test code = 5096096467) 128.00 cm/s LVOT peak zain (test code = 4398621302) 94.6 cm/s AV LVOT peak gradient (test code = 2885566138) 3.6 mmHg LVOT mn grad (test code = 3122157067) 1.8 mmHg LVOT peak VTI (test code = 8522884395) 18.1 cm LV V1 mean (test code = 4713521186) 63.40 cm/s Tapse (test code = 5352933031) 2.22 cm LA Volume Index (BP) (test code = 4562645963) 53.0 mL/m2 LA volume (BP) (test code = 5660760472) 109.5 mL LAV(MOD-sp2) (test code = 8737322196) 116.90 mL LVIDD (test code = 0083557389) 5.00 cm Left Ventricular End Diastolic Volume by Teichholz Method (test code = 6829470) 116.3 mL IVS (test code = 9193988758) 1.36 cm Interventricular Septum Diastolic Thickness by 2D (test code = 3282421) 1.36 cm LVPWD (test code = 1325049233) 1.29 cm PW (test code = 9513032909) 1.29 cm 0.6-1.1 EF(Teich) (test code = 9424710654) 44.20 % LVIDS (test code = 1904774330) 3.90 cm Left Ventricular End Systolic Volume by Teichholz Method (test code = 4176336) 64.8 mL FS (test code = 4485464336) 22 % EF - 2D (test code = 45727220) 44.20 % GLS (test code = 0769834586) -15 % A4C EF (test code = 8171238141) 47.20 % EF(sp4-el) (test code = 5846620385) 46.80 % SV(MOD-sp4) (test code = 4947841300) 78.80 mL SV(sp4-el) (test code = 5269134252) 79.90 mL LV Diastolic Volume (BP) (test code = 2997678123) 194.8 mL A2C EF (test code = 9287660008) 56.10 % EF(MOD-bp) (test code = 9831213141) 54.90 % EF(sp2-el) (test code = 4820997926) 57.10 % LV Systolic Volume (BP) (test code = 5699814682) 87.9 mL SV(MOD-bp) (test code = 7731125285) 106.90 mL SV(MOD-sp2) (test code = 9937887099) 113.20 mL EF (test code = 4555619520) 55 Left Ventricular Stroke Volume by 2-D Biplane-MOD (test code = 3652671) 106.9 mL Radiology Study observation (narrative) (test code = 57400-0) MARLENE (test code = MARLENE) ?Left?Ventricle: Left [...] Lumason ultrasound enhancing agent used. [facility]2023-07-03 20:53:53* Test Item Value Reference Range Interpretation Comme nts Height (test code = 5324093622) 69 in Weight (test code = 8139957252) 200 lbs Systolic BP (test code = 3704916221) 170 mmHg Diastolic BP (test code = 1612287751) 89 mmHg Heart Rate (test code = 5762250523) 90 bpm LV GLS Endo Peak A2C () (test code = 3393788018) -17.10 % LV GLS Endo Peak A3C () (test code = 7360409286) -17.30 % LV GLS Endo Peak A4C () (test code = 5915842367) -9.20 % LV GLS Endo Peak Avg () (test code = 6333425942) -14.50 % BSA (test code = 8527892232) 2.07 m2 Ao root diam (test code = 0438451356) 3.00 cm Aortic root (test code = 9424576405) 3.0 cm Ao root annulus (test code = 8713460140) 3.0 cm LA size (test code = 3905126390) 4.4 cm LAV(MOD-sp4) (test code = 2418668203) 100.10 mL E wave decelartion time (test code = 7853910309) 0.28 s MV Peak E Zain (test code = 6954432495) 116.5 cm/s MV Peak A Zain (test code = 3876589138) 101.2 cm/s E/A ratio (test code = 5136756602) 1.15 ratio MV Prop V (test code = 6688700587) 128.00 cm/s LVOT peak zain (test code = 1926800206) 94.6 cm/s AV LVOT peak gradient (test code = 9092465581) 3.6 mmHg LVOT mn grad (test code = 4943117439) 1.8 mmHg LVOT peak VTI (test code = 3630971063) 18.1 cm LV V1 mean (test code = 4726699683) 63.40 cm/s Tapse (test code = 2459701307) 2.22 cm LA Volume Index (BP) (test code = 8646581524) 53.0 mL/m2 LA volume (BP) (test code = 4301840459) 109.5 mL LAV(MOD-sp2) (test code = 4103590799) 116.90 mL LVIDD (test code = 9774740516) 5.00 cm Left Ventricular End Diastolic Volume by Teichholz Method (test code = 8549047) 116.3 mL IVS (test code = 2980339450) 1.36 cm Interventricular Septum Diastolic Thickness by 2D (test code = 3910467) 1.36 cm LVPWD (test code = 4083301458) 1.29 cm PW (test code = 7755502921) 1.29 cm 0.6-1.1 EF(Teich) (test code = 8404996336) 44.20 % LVIDS (test code = 5802289096) 3.90 cm Left Ventricular End Systolic Volume by Teichholz Method (test code = 0471139) 64.8 mL FS (test code = 9967610075) 22 % EF - 2D (test code = 72638546) 44.20 % GLS (test code = 4967199091) -15 % A4C EF (test code = 7108684926) 47.20 % EF(sp4-el) (test code = 0617070446) 46.80 % SV(MOD-sp4) (test code = 8986796562) 78.80 mL SV(sp4-el) (test code = 4703991406) 79.90 mL LV Diastolic Volume (BP) (test code = 8452176991) 194.8 mL A2C EF (test code = 6280266297) 56.10 % EF(MOD-bp) (test code = 9482621702) 54.90 % EF(sp2-el) (test code = 2112611929) 57.10 % LV Systolic Volume (BP) (test code = 6098406337) 87.9 mL SV(MOD-bp) (test code = 1294755372) 106.90 mL SV(MOD-sp2) (test code = 9933082874) 113.20 mL EF (test code = 9979337884) 55 Left Ventricular Stroke Volume by 2-D Biplane-MOD (test code = 0016508) 106.9 mL Radiology Study observation (narrative) (test code = 11913-3) MARLENE (test code = MARLENE) ?Left?Ventricle: Left [...] Lumason ultrasound enhancing agent used. [facility]2023-07-03 20:53:53* Test Item Value Reference Range Interpretation Comme nts Height (test code = 7820904887) 69 in Weight (test code = 3476199273) 200 lbs Systolic BP (test code = 3756232613) 170 mmHg Diastolic BP (test code = 6702257101) 89 mmHg Heart Rate (test code = 3522952343) 90 bpm LV GLS Endo Peak A2C () (test code = 5581839773) -17.10 % LV GLS Endo Peak A3C () (test code = 2746362975) -17.30 % LV GLS Endo Peak A4C () (test code = 2003415750) -9.20 % LV GLS Endo Peak Avg () (test code = 6382361179) -14.50 % BSA (test code = 8560765452) 2.07 m2 Ao root diam (test code = 8610603107) 3.00 cm Aortic root (test code = 5130621148) 3.0 cm Ao root annulus (test code = 2513046537) 3.0 cm LA size (test code = 6991221790) 4.4 cm LAV(MOD-sp4) (test code = 7525883506) 100.10 mL E wave decelartion time (test code = 7183787684) 0.28 s MV Peak E Zain (test code = 6962079337) 116.5 cm/s MV Peak A Zain (test code = 2062084515) 101.2 cm/s E/A ratio (test code = 2403323034) 1.15 ratio MV Prop V (test code = 6734480368) 128.00 cm/s LVOT peak zain (test code = 2854434180) 94.6 cm/s AV LVOT peak gradient (test code = 7578938722) 3.6 mmHg LVOT mn grad (test code = 6467459059) 1.8 mmHg LVOT peak VTI (test code = 8782949425) 18.1 cm LV V1 mean (test code = 6368911372) 63.40 cm/s Tapse (test code = 3104326636) 2.22 cm LA Volume Index (BP) (test code = 5038032045) 53.0 mL/m2 LA volume (BP) (test code = 7303541090) 109.5 mL LAV(MOD-sp2) (test code = 4096444513) 116.90 mL LVIDD (test code = 2556681689) 5.00 cm Left Ventricular End Diastolic Volume by Teichholz Method (test code = 2840771) 116.3 mL IVS (test code = 5168347055) 1.36 cm Interventricular Septum Diastolic Thickness by 2D (test code = 2852876) 1.36 cm LVPWD (test code = 2386334896) 1.29 cm PW (test code = 0401625741) 1.29 cm 0.6-1.1 EF(Teich) (test code = 9863528323) 44.20 % LVIDS (test code = 5270449241) 3.90 cm Left Ventricular End Systolic Volume by Teichholz Method (test code = 7253463) 64.8 mL FS (test code = 0188014215) 22 % EF - 2D (test code = 99977227) 44.20 % GLS (test code = 4954893678) -15 % A4C EF (test code = 9995349479) 47.20 % EF(sp4-el) (test code = 7572572155) 46.80 % SV(MOD-sp4) (test code = 9722501928) 78.80 mL SV(sp4-el) (test code = 4308440306) 79.90 mL LV Diastolic Volume (BP) (test code = 6857706942) 194.8 mL A2C EF (test code = 2326285871) 56.10 % EF(MOD-bp) (test code = 3432531859) 54.90 % EF(sp2-el) (test code = 9523109587) 57.10 % LV Systolic Volume (BP) (test code = 2311333285) 87.9 mL SV(MOD-bp) (test code = 1001982148) 106.90 mL SV(MOD-sp2) (test code = 4134537285) 113.20 mL EF (test code = 1542269973) 55 Left Ventricular Stroke Volume by 2-D Biplane-MOD (test code = 9006990) 106.9 mL Radiology Study observation (narrative) (test code = 94000-7) MARLENE (test code = MARLENE) ?Left?Ventricle: Left [...] Lumason ultrasound enhancing agent used. [facility]2023-07-03 20:53:53* Test Item Value Reference Range Interpretation Comme nts Height (test code = 0303264613) 69 in Weight (test code = 2116328702) 200 lbs Systolic BP (test code = 2379042413) 170 mmHg Diastolic BP (test code = 8297136463) 89 mmHg Heart Rate (test code = 2628209047) 90 bpm LV GLS Endo Peak A2C () (test code = 3813417486) -17.10 % LV GLS Endo Peak A3C () (test code = 8453930686) -17.30 % LV GLS Endo Peak A4C () (test code = 2259849034) -9.20 % LV GLS Endo Peak Avg () (test code = 8333760142) -14.50 % BSA (test code = 2788353853) 2.07 m2 Ao root diam (test code = 6734240388) 3.00 cm Aortic root (test code = 0067062575) 3.0 cm Ao root annulus (test code = 3133113107) 3.0 cm LA size (test code = 8074993281) 4.4 cm LAV(MOD-sp4) (test code = 2879802899) 100.10 mL E wave decelartion time (test code = 7856920879) 0.28 s MV Peak E Zain (test code = 2533656535) 116.5 cm/s MV Peak A Zain (test code = 0145003742) 101.2 cm/s E/A ratio (test code = 3177744719) 1.15 ratio MV Prop V (test code = 3365418564) 128.00 cm/s LVOT peak zain (test code = 6654570819) 94.6 cm/s AV LVOT peak gradient (test code = 3760088485) 3.6 mmHg LVOT mn grad (test code = 6867371279) 1.8 mmHg LVOT peak VTI (test code = 1745793784) 18.1 cm LV V1 mean (test code = 7604171830) 63.40 cm/s Tapse (test code = 3881399616) 2.22 cm LA Volume Index (BP) (test code = 6705815174) 53.0 mL/m2 LA volume (BP) (test code = 9882663260) 109.5 mL LAV(MOD-sp2) (test code = 2425015695) 116.90 mL LVIDD (test code = 1468699459) 5.00 cm Left Ventricular End Diastolic Volume by Teichholz Method (test code = 4498884) 116.3 mL IVS (test code = 8855657420) 1.36 cm Interventricular Septum Diastolic Thickness by 2D (test code = 8888830) 1.36 cm LVPWD (test code = 3920353478) 1.29 cm PW (test code = 2113973340) 1.29 cm 0.6-1.1 EF(Teich) (test code = 2873934697) 44.20 % LVIDS (test code = 1076079117) 3.90 cm Left Ventricular End Systolic Volume by Teichholz Method (test code = 5253747) 64.8 mL FS (test code = 0741002998) 22 % EF - 2D (test code = 70480559) 44.20 % GLS (test code = 8130893319) -15 % A4C EF (test code = 6167738027) 47.20 % EF(sp4-el) (test code = 0953395779) 46.80 % SV(MOD-sp4) (test code = 9985279895) 78.80 mL SV(sp4-el) (test code = 6866394998) 79.90 mL LV Diastolic Volume (BP) (test code = 8955658835) 194.8 mL A2C EF (test code = 8663352121) 56.10 % EF(MOD-bp) (test code = 6042367307) 54.90 % EF(sp2-el) (test code = 6503912716) 57.10 % LV Systolic Volume (BP) (test code = 4988653981) 87.9 mL SV(MOD-bp) (test code = 3051772403) 106.90 mL SV(MOD-sp2) (test code = 1523041424) 113.20 mL EF (test code = 6154886225) 55 Left Ventricular Stroke Volume by 2-D Biplane-MOD (test code = 8529717) 106.9 mL Radiology Study observation (narrative) (test code = 97343-1) MARLENE (test code = MARLENE) ?Left?Ventricle: Left [...] Lumason ultrasound enhancing agent used. [facility] CHE[facility] 1 [id number] 16:22:16PROCEDURE: XR CHEST 1 VW CLINICAL INDICATION: chest pain COMPARISON: Chest radiograph dated 04/13/2020 FINDINGS: No focal consolidation is identified. Hilar vascular congestion noted. Nopleural effusion or pneumothorax is seen. The cardiomediastinal silhouetteis enlarged.No acute bony abnormality.[facility] CHEST 1 [id number] 16:22:16PROCEDURE: XR CHEST 1 VW CLINICAL INDICATION: chest pain COMPARISON: Chest radiograph dated 04/13/2020 FINDINGS: No focal consolidation is identified. Hilar vascular congestion noted. Nopleural effusion or pneumothorax is seen. The cardiomediastinal silhouetteis enlarged.No acute bony abnormality.[facility] CHEST 1 [id number] 16:22:16PROCEDURE: XR CHEST 1 VW CLINICAL INDICATION: chest pain COMPARISON: Chest radiograph dated 04/13/2020 FINDINGS: No focal consolidation is identified. Hilar vascular congestion noted. Nopleural effusion or pneumothorax is seen. The cardiomediastinal silhouetteis enlarged.No acute bony abnormality.[facility] CHEST 1 [id number] 16:22:16 PROCEDURE: XR CHEST 1 VW CLINICAL INDICATION: chest pain COMPARISON: Chest radiograph dated 04/13/2020 FINDINGS: No focal consolidation is identified. Hilar vascular congestion noted. Nopleural effusion or pneumothorax is seen. The cardiomediastinal silhouetteis enlarged.No acute bony abnormality.[facility] [id number] 10:00:43* Test Item Value Reference Range Interpretation Comme nts LACTIC ACID (test code = 0998872805) 0.95 mmol/L 0.50-2.20 Lab Interpretation (test cod e = 17746-2) Normal [facility] [id number] 10:00:43* Test Item Value Reference Range Interpretation Comme nts LACTIC ACID (test code = 4270021600) 0.95 mmol/L 0.50-2.20 Lab Interpretation (test cod e = 69691-2) Normal [facility] Whole [id number] 10:00:43* Test Item Value Reference Range Interpretation Comme nts LACTIC ACID (test code = 1208433407) 0.95 mmol/L 0.50-2.20 Lab Interpretation (test cod e = 66452-3) Normal [facility] Acid Whole [id number] 10:00:43* Test Item Value Reference Range Interpretation Comme nts LACTIC ACID (test code = 0069297727) 0.95 mmol/L 0.50-2.20 Lab Interpretation (test cod e = 42015-7) Normal [facility] Stimulating [id number] 07:20:51 * Test Item Value Reference Range Interpretation Comme nts TSH (test code = 5397551970) 2.45 0.45-4.70 Biotin has been reported to cause a negative bias, interpret results relative to patient's use of biotin. Lab Interpretation (test code = 91074-8) Normal [facility] [id number] 07:20:51 * Test Item Value Reference Range Interpretation Comme nts TSH (test code = 6310999102) 2.45 0.45-4.70 Biotin has been reported to cause a negative bias, interpret results relative to patient's use of biotin. Lab Interpretation (test code = 18588-0) [facility] [id number] 07:20:51 * Test Item Value Reference Range Interpretation Comme nts TSH (test code = 5548400401) 2.45 0.45-4.70 Biotin has been reported to cause a negative bias, interpret results relative to patient's use of biotin. Lab Interpretation (test code = 24839-5) [facility] [id number] 07:20:51 * Test Item Value Reference Range Interpretation Comme nts TSH (test code = 1390004824) 2.45 0.45-4.70 Biotin has been reported to cause a negative bias, interpret results relative to patient's use of biotin. Lab Interpretation (test code = 05248-8) Normal [facility]Glycosylated Hemoglobin (A1C)2023-07-03 06:51:13* Test Item Value Reference Range Interpretation Comme nts HGB A1C (test code = 4548-4) 5.6 % 4.0-5.7 MARLENE (test code = MARLENE) Reference RangesNormal: <5.7%Prediabetes: 5.7 - 6.4%Diabetes: > 6.5% Lab Interpretation (test code = 98154-1) Normal [facility]Glycosylated Hemoglobin (A1C)2023-07-03 06:51:13* Test Item Value Reference Range Interpretation Comme [facility] HGB A1C (test code = 4548-4) 5.6 % 4.0-5.7 MARLENE (test code = MARLENE) Reference RangesNormal: <5.7%Prediabetes: 5.7 - 6.4%Diabetes: > 6.5% Lab Interpretation (test code = 44057-5) Normal [facility]Glycosylated Hemoglobin (A1C)2023-07-03 06:51:13* Test Item Value Reference Range Interpretation Comme nts HGB A1C (test code = 4548-4) 5.6 % 4.0-5.7 MARLENE (test code = MARLENE) Reference RangesNormal: <5.7%Prediabetes: 5.7 - 6.4%Diabetes: > 6.5% Lab Interpretation (test code = 37437-7) Normal [facility]cosylated Hemoglobin (A1C)2023-07-03 06:51:13* Test Item Value Reference Range Interpretation Comme [facility] HGB A1C (test code = 4548-4) 5.6 % 4.0-5.7 MARLENE (test code = MARLENE) Reference RangesNormal: <5.7%Prediabetes: 5.7 - 6.4%Diabetes: > 6.5% Lab Interpretation (test code = 21236-4) Normal [facility]Prothrombin Time / [id number] 03:23:45* Test Item Value Reference Range Interpretation Comme [facility] PROTIME PATIENT (test code = 5964-2) 11.6 10.1-12.6 INR (test code = 6301-6) 1.0 Normal INR <1.1; Warfarin Therapeutic range 2.0 to 3.0 or 2.5 to 3.5, depending upon the indications. Lab Interpretation (test code = 99512-9) Normal [facility]aPTT2024-03-07 03:23:45* Test Item Value Reference Range Interpretation Comme [facility] APTT Patient (test code = 3173-2) 33 26-36 MARLENE (test code = MARLENE) The [facility] patient population mean normal value for aPTT is 30 seconds. Lab Interpretation (test code = 25273-2) Normal [facility]Prothrombin Time / [id number] 03:23:45* Test Item Value Reference Range Interpretation Comme nts PROTIME PATIENT (test code = 5964-2) 11.6 10.1-12.6 INR (test code = 6301-6) 1.0 Normal INR <1.1; Warfarin Therapeutic range 2.0 to 3.0 or 2.5 to 3.5, depending upon the indications. Lab Interpretation (test code = 28641-8) Normal [facility]aPTT2024-03-07 03:23:45* Test Item Value Reference Range Interpretation Comme nts APTT Patient (test code = 3173-2) 33 26-36 MARLENE (test code = MARLENE) The [facility] patient population mean normal value for aPTT is 30 seconds. Lab Interpretation (test code = 47829-7) Normal [facility]throm[facility] Time / [id number] 03:23:45* Test Item Value Reference Range Interpretation Comme nts PROTIME PATIENT (test code = 5964-2) 11.6 10.1-12.6 INR (test code = 6301-6) 1.0 Normal INR <1.1; Warfarin Therapeutic range 2.0 to 3.0 or 2.5 to 3.5, depending upon the indications. Lab Interpretation (test code = 78427-0) [facility] Test Item Value Reference Range Interpretation Comme nts APTT Patient (test code = 3173-2) 33 26-36 MARLENE (test code = MARLENE) The [facility] patient population mean normal value for aPTT is 30 seconds. Lab Interpretation (test code = 20332-7) Normal [facility]Prothrom[facility] Time / [id number] 03:23:45* Test Item Value Reference Range Interpretation Comme nts PROTIME PATIENT (test code = 5964-2) 11.6 10.1-12.6 INR (test code = 6301-6) 1.0 Normal INR <1.1; Warfarin Therapeutic range 2.0 to 3.0 or 2.5 to 3.5, depending upon the indications. Lab Interpretation (test code = 69595-0) [facility] 03:23:45* Test Item Value Reference Range Interpretation Comme nts APTT Patient (test code = 3173-2) 33 26-36 MARLENE (test code = MARLENE) The [facility] patient population mean normal value for aPTT is 30 seconds. Lab Interpretation (test code = 09463-6) Normal [facility] [id number] 02:38:39* Test Item Value Reference Range Interpretation Comme nts TROPONIN I (test code = 7348251115) 0.077 ng/mL <=0.034 H MARLENE (test code [...] of biotin. Lab Interpretation (test code = 72566-2) Abnormal [facility] [id number] 02:38:39* Test Item Value Reference Range Interpretation Comme nts TROPONIN I (test code = 0750240249) 0.077 ng/mL <=0.034 H MARLENE (test code [...] of biotin. Lab Interpretation (test code = 82462-9) Abnormal [facility] [id number] 02:38:39* Test Item Value Reference Range Interpretation Comme nts TROPONIN I (test code = 9637745807) 0.077 ng/mL <=0.034 H MARLENE (test code [...] of biotin. Lab Interpretation (test code = 26352-7) Abnormal [facility] [id number] 02:38:39* Test Item Value Reference Range Interpretation Comme nts TROPONIN I (test code = 9288516343) 0.077 ng/mL <=0.034 H MARLENE (test code [...] of biotin. Lab Interpretation (test code = 59021-8) [facility]normal [facility] Hsc-Ajr1921-04-07 02:36:17* Test Item Value Reference Range Interpretation Comme nts NT-proBNP (test code = 97262-6) 1580 pg/mL <=125 H MARLENE (test code = MARLENE) Positive: Heart Failure Likely Lab Interpretation (test code = 49517-6) [facility]normal [facility] Hsd-[id number] 02:36:17* Test Item Value Reference Range Interpretation Comme nts NT-proBNP (test code = 63112-8) 1580 pg/mL <=125 H MARLENE (test code = MARLENE) Positive: Heart Failure Likely Lab Interpretation (test code = 50436-3) [facility]normal [facility] Vrs-[id number] 02:36:17* Test Item Value Reference Range Interpretation Comme nts NT-proBNP (test code = 21591-6) 1580 pg/mL <=125 H MARLENE (test code = MARLENE) Positive: Heart Failure Likely Lab Interpretation (test code = 67008-7) [facility]normal [facility] Vgj-[id number] 02:36:17* Test Item Value Reference Range Interpretation Comme nts NT-proBNP (test code = 17206-0) 1580 pg/mL <=125 H MARLENE (test code = MARLENE) Positive: Heart Failure Likely Lab Interpretation (test code = 65537-3) Abnormal [facility]. Metabolic Panel ([id number])2023-07-03 02:27:40* Test Item Value Reference Range Interpretation Comme nts NA (test code = 0648337602) 141 mmol/L 135-145 K (test code = 8721852333) 3.6 mmol/L 3.5-5.0 CL (test code = 9128928043) 111 mmol/L 98-108 H CO2 TOTAL (test code = 9509194569) 26 mmol/L 23-31 AGAP (test code = 4612766213) 4 2-16 BUN (test code = 9606502409) 20 mg/dL 7-23 GLUCOSE (test code = 5400202502) 118 mg/dL 70-110 H CREATININE (test code = 2160-0) 1.55 mg/dL 0.60-1.25 H TOTAL BILI (test code = 6776060229) 0.6 mg/dL 0.1-1.1 CALCIUM (test code = 2592569896) 10.3 mg/dL 8.6-10.6 T PROTEIN (test code = 2910220146) 8.2 g/dL 6.3-8.2 ALBUMIN (test code = 3498477260) 4.0 g/dL 3.5-5.0 ALK PHOS (test code = 1806115548) 81 U/L 34-122 ALTv (test code = 1742-6) 22 U/L 5-50 AST(SGOT) (test code = 1998304238) 46 U/L 13-40 H eGFR (test code = 79570-3) 48.8 mL/min/1.73m2 CKD-EPI eGFR (2020). Assuming creatinine has been stable day-to-day for at least three months, the eGFR indicates Category G3a (45 - 59 mL/min/1.73 m2) Lab Interpretation (test code = 05000-0) Abnormal [facility]. Metabolic Panel (08439)2023-07-03 02:27:40* Test Item Value Reference Range Interpretation Comme nts NA (test code = 2775935665) 141 mmol/L 135-145 K (test code = 1248967528) 3.6 mmol/L 3.5-5.0 CL (test code = 4578349453) 111 mmol/L 98-108 H CO2 TOTAL (test code = 7416756515) 26 mmol/L 23-31 AGAP (test code = 2371231275) 4 2-16 BUN (test code = 0610637697) 20 mg/dL 7-23 GLUCOSE (test code = 2547560150) 118 mg/dL 70-110 H CREATININE (test code = 2160-0) 1.55 mg/dL 0.60-1.25 H TOTAL BILI (test code = 0535157942) 0.6 mg/dL 0.1-1.1 CALCIUM (test code = 8893263825) 10.3 mg/dL 8.6-10.6 T PROTEIN (test code = 7197583549) 8.2 g/dL 6.3-8.2 ALBUMIN (test code = 0516191317) 4.0 g/dL 3.5-5.0 ALK PHOS (test code = 7934883455) 81 U/L 34-122 ALTv (test code = 1742-6) 22 U/L 5-50 AST(SGOT) (test code = 9296259346) 46 U/L 13-40 H eGFR (test code = 16110-2) 48.8 mL/min/1.73m2 CKD-EPI eGFR (2020). Assuming creatinine has been stable day-to-day for at least three months, the eGFR indicates Category G3a (45 - 59 mL/min/1.73 m2) Lab Interpretation (test code = 51466-6) Abnormal [facility] Metabolic Panel (00304)2023-07-03 02:27:40* Test Item Value Reference Range Interpretation Comme nts NA (test code = 0419947230) 141 mmol/L 135-145 K (test code = 6464561758) 3.6 mmol/L 3.5-5.0 CL (test code = 8172967609) 111 mmol/L 98-108 H CO2 TOTAL (test code = 1197168126) 26 mmol/L 23-31 AGAP (test code = 2993836806) 4 2-16 BUN (test code = 6751014978) 20 mg/dL 7-23 GLUCOSE (test code = 9796206477) 118 mg/dL 70-110 H CREATININE (test code = 2160-0) 1.55 mg/dL 0.60-1.25 H TOTAL BILI (test code = 4280054040) 0.6 mg/dL 0.1-1.1 CALCIUM (test code = 1487292441) 10.3 mg/dL 8.6-10.6 T PROTEIN (test code = 8979369199) 8.2 g/dL 6.3-8.2 ALBUMIN (test code = 2883401739) 4.0 g/dL 3.5-5.0 ALK PHOS (test code = 0472582615) 81 U/L 34-122 ALTv (test code = 1742-6) 22 U/L 5-50 AST(SGOT) (test code = 8451861922) 46 U/L 13-40 H eGFR (test code = 49122-7) 48.8 mL/min/1.73m2 CKD-EPI eGFR (2020). Assuming creatinine has been stable day-to-day for at least three months, the eGFR indicates Category G3a (45 - 59 mL/min/1.73 m2) Lab Interpretation (test code = 25370-1) Abnormal [facility]. Metabolic Panel (36071)2023-07-03 02:27:40* Test Item Value Reference Range Interpretation Comme nts NA (test code = 7912580574) 141 mmol/L 135-145 K (test code = 4428222977) 3.6 mmol/L 3.5-5.0 CL (test code = 8813541895) 111 mmol/L 98-108 H CO2 TOTAL (test code = 6133929177) 26 mmol/L 23-31 AGAP (test code = 1560577246) 4 2-16 BUN (test code = 8827617832) 20 mg/dL 7-23 GLUCOSE (test code = 3792954250) 118 mg/dL 70-110 H CREATININE (test code = 2160-0) 1.55 mg/dL 0.60-1.25 H TOTAL BILI (test code = 1434351088) 0.6 mg/dL 0.1-1.1 CALCIUM (test code = 0219895689) 10.3 mg/dL 8.6-10.6 T PROTEIN (test code = 1706833307) 8.2 g/dL 6.3-8.2 ALBUMIN (test code = 2323290726) 4.0 g/dL 3.5-5.0 ALK PHOS (test code = 5049788389) 81 U/L 34-122 ALTv (test code = 1742-6) 22 U/L 5-50 AST(SGOT) (test code = 3888052607) 46 U/L 13-40 H eGFR (test code = 66097-8) 48.8 mL/min/1.73m2 CKD-EPI eGFR (2020). Assuming creatinine has been stable day-to-day for at least three months, the eGFR indicates Category G3a (45 - 59 mL/min/1.73 m2) Lab Interpretation (test code = 80023-8) Abnormal [facility] with Mjeu3886-56-19 02:14:58* Test Item Value Reference Range Interpretation [...] 33.1 g/dL 31.2-35.0 RDW-SD (test code = 16741-9) 48.3 fL 38.5-51.6 RDW-CV (test code = 788-0) 14.2 % 12.1-15.4 PLT (test code = 777-3) 163 150-328 MPV (test code = 68679-4) 11.3 fL 9.8-13.0 NRBC/100 WBC (test code = 4596172295) 0.0 0.0-10.0 NRBC x10^3 (test code = 1438023723) See_Comment [Automated messa ge] The system which generated this result transmitted reference range: 10*3/?L. The reference range was not used to interpret this result as normal/abnormal. GRAN MAT (NEUT) % (test code = 770-8) 61.1 % IMM GRAN % (test code = 3811850046) 0.40 % LYMPH % (test code = 736-9) 21.8 % MONO % (test code = 5905-5) 11.0 % EOS % (test code = 713-8) 4.5 % BASO % (test code = 706-2) 1.2 % GRAN MAT x10^3(ANC) (test code = 9308809705) 2.99 10*3/uL 1.99-6.95 IMM GRAN x10^3 (test code = 7136654229) 0.00-0.06 LYMPH x10^3 (test code = 731-0) 1.07 10*3/uL 1.09-3.23 L MONO x10^3 (test code = 742-7) 0.54 10*3/uL 0.36-1.02 EOS x10^3 (test code = 711-2) 0.22 10*3/uL 0.06-0.53 BASO x10^3 (test code = 704-7) 0.06 10*3/uL 0.01-0.09 Lab Interpretation (test code = 21520-3) Abnormal [facility] with Zbuu9056-85-39 02:14:58* Test Item Value Reference Range Interpretation [...] 33.1 g/dL 31.2-35.0 RDW-SD (test code = 30776-3) 48.3 fL 38.5-51.6 RDW-CV (test code = 788-0) 14.2 % 12.1-15.4 PLT (test code = 777-3) 163 150-328 MPV (test code = 86049-1) 11.3 fL 9.8-13.0 NRBC/100 WBC (test code = 1751515964) 0.0 0.0-10.0 NRBC x10^3 (test code = 8500122068) See_Comment [Automated messa ge] The system which generated this result transmitted reference range: 10*3/?L. The reference range was not used to interpret this result as normal/abnormal. GRAN MAT (NEUT) % (test code = 770-8) 61.1 % IMM GRAN % (test code = 7594830279) 0.40 % LYMPH % (test code = 736-9) 21.8 % MONO % (test code = 5905-5) 11.0 % EOS % (test code = 713-8) 4.5 % BASO % (test code = 706-2) 1.2 % GRAN MAT x10^3(ANC) (test code = 6919941145) 2.99 10*3/uL 1.99-6.95 IMM GRAN x10^3 (test code = 7305117553) 0.00-0.06 LYMPH x10^3 (test code = 731-0) 1.07 10*3/uL 1.09-3.23 L MONO x10^3 (test code = 742-7) 0.54 10*3/uL 0.36-1.02 EOS x10^3 (test code = 711-2) 0.22 10*3/uL 0.06-0.53 BASO x10^3 (test code = 704-7) 0.06 10*3/uL 0.01-0.09 Lab Interpretation (test code = 12206-8) Abnormal [facility] with Uebd1835-24-08 02:14:58* Test Item Value Reference Range Interpretation [...] 33.1 g/dL 31.2-35.0 RDW-SD (test code = 96999-6) 48.3 fL 38.5-51.6 RDW-CV (test code = 788-0) 14.2 % 12.1-15.4 PLT (test code = 777-3) 163 150-328 MPV (test code = 05358-0) 11.3 fL 9.8-13.0 NRBC/100 WBC (test code = 8495367125) 0.0 0.0-10.0 NRBC x10^3 (test code = 2259429466) See_Comment [Automated messa ge] The system which generated this result transmitted reference range: 10*3/?L. The reference range was not used to interpret this result as normal/abnormal. GRAN MAT (NEUT) % (test code = 770-8) 61.1 % IMM GRAN % (test code = 5461139034) 0.40 % LYMPH % (test code = 736-9) 21.8 % MONO % (test code = 5905-5) 11.0 % EOS % (test code = 713-8) 4.5 % BASO % (test code = 706-2) 1.2 % GRAN MAT x10^3(ANC) (test code = 5865759737) 2.99 10*3/uL 1.99-6.95 IMM GRAN x10^3 (test code = 0486855862) 0.00-0.06 LYMPH x10^3 (test code = 731-0) 1.07 10*3/uL 1.09-3.23 L MONO x10^3 (test code = 742-7) 0.54 10*3/uL 0.36-1.02 EOS x10^3 (test code = 711-2) 0.22 10*3/uL 0.06-0.53 BASO x10^3 (test code = 704-7) 0.06 10*3/uL 0.01-0.09 Lab Interpretation (test code = 86863-0) Abnormal [facility] with Mkzg0422-85-24 02:14:58* Test Item Value Reference Range Interpretation [...] 33.1 g/dL 31.2-35.0 RDW-SD (test code = 02678-8) 48.3 fL 38.5-51.6 RDW-CV (test code = 788-0) 14.2 % 12.1-15.4 PLT (test code = 777-3) 163 150-328 MPV (test code = 08120-2) 11.3 fL 9.8-13.0 NRBC/100 WBC (test code = 2641387189) 0.0 0.0-10.0 NRBC x10^3 (test code = 8756191865) See_Comment [Automated messa ge] The system which generated this result transmitted reference range: 10*3/?L. The reference range was not used to interpret this result as normal/abnormal. GRAN MAT (NEUT) % (test code = 770-8) 61.1 % IMM GRAN % (test code = 8101202276) 0.40 % LYMPH % (test code = 736-9) 21.8 % MONO % (test code = 5905-5) 11.0 % EOS % (test code = 713-8) 4.5 % BASO % (test code = 706-2) 1.2 % GRAN MAT x10^3(ANC) (test code = 3975841231) 2.99 10*3/uL 1.99-6.95 IMM GRAN x10^3 (test code = 8032024002) 0.00-0.06 LYMPH x10^3 (test code = 731-0) 1.07 10*3/uL 1.09-3.23 L MONO x10^3 (test code = 742-7) 0.54 10*3/uL 0.36-1.02 EOS x10^3 (test code = 711-2) 0.22 10*3/uL 0.06-0.53 BASO x10^3 (test code = 704-7) 0.06 10*3/uL 0.01-0.09 Lab Interpretation (test code = 75456-7) [facility] Hici2989-97-66 01:45:00Sanket Blair MD ? ? 07/02/2023 ?8:54 PMCritical Care Performed by: Sanket Blair MDAuthorized by: Sanket Blair MD ?Critical care provider statement: ?Critical care [...] of patient's condition and review of old chartsUnWadley Regional Medical CenterPanretinal Photocoagulation - OD - Right Maf4651-73-79 17:38:37Time OutConfirmed correct patient, procedure, site, and [...] Dr. Dominguez perform intravitreal PRP OD.[facility]ervilleMagnesium Rxcbu2325-12-12 20:53:34* Test Item Value Reference Range Interpretation Comme nts MAGNESIUM (test code = 2103142067) 1.8 mg/dL 1.7-2.4 Lab Interpretation (test cod e = 56146-2) Normal [facility] Metabolic Panel (NA, K, CL, CO2, Glucose, BUN, Creatinine, CA)2023-05-23 20:53:14* Test Item Value Reference Range Interpretation Comme nts NA (test code = 6317955012) 141 mmol/L 135-145 K (test code = 0477163847) 4.8 mmol/L 3.5-5.0 CL (test code = 9869016985) 108 mmol/L 98-108 CO2 TOTAL (test code = 1792857628) 30 mmol/L 23-31 AGAP (test code = 8187369569) 3 2-16 BUN (test code = 0767620266) 18 mg/dL 7-23 GLUCOSE (test code = 9541432679) 90 mg/dL 70-110 CREATININE (test code = 2295799025) 1.55 mg/dL 0.60-1.25 H CALCIUM (test code = 3887987167) 10.5 mg/dL 8.6-10.6 eGFR (test code = 67971-3) 48.8 mL/min/1.73m2 CKD-EPI eGFR (2020). Assuming creatinine has been stable day-to-day for at least three months, the eGFR indicates Category G3a (45 - 59 mL/min/1.73 m2) Lab Interpretation (test code = 37382-9) Abnormal [facility]ervillePhosphorus Ybsyf9858-94-08 20:53:13* Test Item Value Reference Range Interpretation Comme nts PHOSPHORUS (test code = 6630120998) 2.5 mg/dL 2.5-5.0 Lab Interpretation (test cod e = 09102-9) Normal [facility] with Jeaujeimhbxp2610-67-66 18:39:51* Test Item Value Reference Range Interpretation [...] 32.1 g/dL 31.2-35.0 RDW-SD (test code = 78348-9) 52.6 fL 38.5-51.6 H RDW-CV (test code = 788-0) 14.8 % 12.1-15.4 PLT (test code = 777-3) 145 See_Comment L [Automated messa ge] The system which generated this result transmitted reference range: 150 - 328 10*3/?L. The reference range was not used to interpret this result as normal/abnormal. MPV (test code = 58919-4) 12.2 fL 9.8-13.0 NRBC/100 WBC (test code = 2800935058) 0.0 See_Comment [Automated [employer]sk[employer] ssage] The system which generated this result transmitted reference range: 0.0 - 10.0 /100 WBCs. The reference range was not used to interpret this result as normal/abnormal. NRBC x10^3 (test code = 6801117443) See_Comment [Automated messa ge] The system which generated this result transmitted reference range: 10*3/?L. The reference range was not used to interpret this result as normal/abnormal. GRAN MAT (NEUT) % (test code = 770-8) 64.1 % IMM GRAN % (test code = 6480499490) 0.20 % LYMPH % (test code = 736-9) 19.5 % MONO % (test code = 5905-5) 9.9 % EOS % (test code = 713-8) 4.5 % BASO % (test code = 706-2) 1.8 % GRAN MAT x10^3(ANC) (test code = 3408625947) 3.30 10*3/uL 1.99-6.95 IMM GRAN x10^3 (test code = 1170923157) 0.00-0.06 LYMPH x10^3 (test code = 731-0) 1.00 10*3/uL 1.09-3.23 L MONO x10^3 (test code = 742-7) 0.51 10*3/uL 0.36-1.02 EOS x10^3 (test code = 711-2) 0.23 10*3/uL 0.06-0.53 BASO x10^3 (test code = 704-7) 0.09 10*3/uL 0.01-0.09 Lab Interpretation (test code = 90624-4) Abnormal [facility]ervilleIntravitreal Injection, Pharmacologic Agent - OD - Right Tdg7013-98-55 16:46:19Time Out05/02/2023. 10:42 AM. Confirmed correct patient, procedure, site, and patient consented. AnesthesiaTopical anesthesia was used. Anesthetic medications included Lidocaine 3.5% gel, Proparacaine 0.5%. ProcedurePreparation included 5% betadine to ocular surface, eyelid speculum. A 32 gauge needle was used. Injection:1.25 mg bevacizumab 1.25 mg/0.05 mL ?Route: Intravitreal, Site: Right Eye ?[facility]: [address]-4, Lot: [id number], Expiration date: 08/07/2023 Post-opPost injection exam found visual acuity of at least counting fingers. The patient tolerated the procedure well. There were no complications. Notes Date of Service: 05/02/2023 Time out:Individual performing procedure identifiedCorrect patientCorrect siteCorrect procedure Surgeon: Diandra Tillman MD Eye: right PROCEDURE: IVT AvastinOD Allergies: No Known Allergies Prep: Betadine 5% ? Anesthesia: Akten 3.5% BIPIN R NAIK ?05/02/2023 ?10:24 AM RTC in 3-4 weeks for DFE/OCT/IVFA [facility] Tillman [facility]Un[facility] MOLECULAR TELSK7252-71-75 15:17:13* Test Item Value Reference Range Interpretation Comme [facility] POCT Molecular Strep (test c ode = 22601-4) Negative Negative Lab Interpretation (test cod e = 98814-2) Normal [facility] MOLECULAR LMYDO1591-01-85 15:17:13* Test Item Value Reference Range Interpretation Comme [facility] POCT Molecular Strep (test c ode = 72676-5) Negative Negative Lab Interpretation (test cod e = 86383-8) Normal [facility]ervilleBK VIRUS DNA, JRKBSKLKEAFA2746-37-71 19:53:32 * Test Item Value Reference Range Interpretation Comme [facility] Specimen Tested (test code = 5601141285) Plasma BK Virus DNA - log copies/mL (test code = 4041545438) See_Comment [Automated message] The system which generated this result transmitted reference range: <2.7 log copies/mL. The reference range was not used to interpret this result as normal/abnormal. BK Virus DNA - copies/mL (test code = 7494288752) See_Comment [Automated message] The system which generated [...] is a laboratory developed test using a site operations manager labeled ASR (Analyte Specific Reagent) as the reagent providing the specificity of the assay. This test was developed and its performance characteristics determined by [facility] Clinical Microbiology Laboratory. It has not been [...] high complexity clinical laboratory testing. [facility] PflugervilleTacrolimus, Twiem5358-95-96 15:46:25FK 506<3ng/mL09/25/2022 10:46 AM [facility] LABORATORY SERVICESTarget/Therapeutic Range KIDNEY ? Early (<3 [...] ?(>12 mo) ? ?8-10 Method by: ?Chemiflex, First Aid Nurse o7123OgxdkvneglWadley Regional Medical CenterBawilliamson [facility] hospital Metabolic Panel (NA, K, CL, CO2, Glucose, BUN, Creatinine, CA)2022-09-24 22:18:31* Test Item Value Reference Range Interpretation Comme nts NA (test code = 8179562617) 140 mmol/L 135-145 K (test code = 5338797116) 3.9 mmol/L 3.5-5.0 CL (test code = 6746068915) 107 mmol/L 98-108 CO2 TOTAL (test code = 1404076209) 28 mmol/L 23-31 AGAP (test code = 0959432245) 5 2-16 BUN (test code = 4308360966) 15 mg/dL 7-23 GLUCOSE (test code = 4982860741) 99 mg/dL 70-110 CREATININE (test code = 1792985929) 1.53 mg/dL 0.60-1.25 H CALCIUM (test code = 3890540658) 10.2 mg/dL 8.6-10.6 eGFR (test code = 4321615351) 45.8 mL/min/1.73m2 MARLENE (test code = MARLENE) [...] imaging tests). Lab Interpretation (test code = 65712-8) Abnormal [facility]ugervilleMagnesium Wblui4402-34-24 22:18:31* Test Item Value Reference Range Interpretation Comme nts MAGNESIUM (test code = 5241411429) 1.7 mg/dL 1.7-2.4 Lab Interpretation (test cod e = 54184-5) Normal [facility]ervillePhosphorus Xpqks2068-86-26 22:18:11* Test Item Value Reference Range Interpretation Comme nts PHOSPHORUS (test code = 6118486817) 2.8 mg/dL 2.5-5.0 Lab Interpretation (test cod e = 53429-0) Normal [facility]ugervilleCBC with Moqknlwdfsoh0339-43-87 21:06:57* Test Item Value Reference Range Interpretation [...] 32.0 g/dL 31.2-35.0 RDW-SD (test code = 34031-9) 46.5 fL 38.5-51.6 RDW-CV (test code = 788-0) 13.7 % 12.1-15.4 PLT (test code = 777-3) 150 See_Comment [Automated [employer]a ge] The system which generated this result transmitted reference range: 150 - 328 10*3/?L. The reference range was not used to interpret this result as normal/abnormal. MPV (test code = 96611-6) 11.2 fL 9.8-13.0 NRBC/100 WBC (test code = 1623137196) 0.0 See_Comment [Automated 5skills ssage] The system which generated this result transmitted reference range: 0.0 - 10.0 /100 WBCs. The reference range was not used to interpret this result as normal/abnormal. NRBC x10^3 (test code = 1859401534) See_Comment [Automated [employer]a ge] The system which generated this result transmitted reference range: 10*3/?L. The reference range was not used to interpret this result as normal/abnormal. GRAN MAT (NEUT) % (test code = 770-8) 63.0 % IMM GRAN % (test code = 5985646447) 0.30 % LYMPH % (test code = 736-9) 19.5 % MONO % (test code = 5905-5) 11.7 % EOS % (test code = 713-8) 4.5 % BASO % (test code = 706-2) 1.0 % GRAN MAT x10^3(ANC) (test code = 4129349093) 3.60 10*3/uL 1.99-6.95 IMM GRAN x10^3 (test code = 0492193015) 0.00-0.06 LYMPH x10^3 (test code = 731-0) 1.12 10*3/uL 1.09-3.23 MONO x10^3 (test code = 742-7) 0.67 10*3/uL 0.36-1.02 EOS x10^3 (test code = 711-2) 0.26 10*3/uL 0.06-0.53 BASO x10^3 (test code = 704-7) 0.06 10*3/uL 0.01-0.09 Lab Interpretation (test code = 44401-2) Abnormal [facility]ugervilleEXTERNAL JL-ESRDL0607-94-22 00:00:00* Test Item Value Reference Range Interpretation Comme nts DD-cfDNA (External Results) (test code = 5126) 0.55 <=1.0 [facility] PflugervilleTacrolimus, Npesy1995-00-17 14:05:00* Test Item Value Reference Range Interpretation Comme nts FK 506 (test code = 7713958250) 7 ng/mL MARLENE (test code = MARLENE) [...] ?(>12 mo) ? ?8-10 Method by: ?Chemiflex, First Aid Nurse i1000 [facility] PflugervilleTacrolimus, Hccay7011-39-44 14:05:00* Test Item Value Reference Range Interpretation Comme nts FK 506 (test code = 1894679532) 7 ng/mL MARLENE (test code = MARLENE) [...] ?(>12 mo) ? ?8-10 Method by: ?Chemiflex, First Aid Nurse i1000 [facility]ervilleTacrolimus, Wbfyu4439-10-77 14:05:00* Test Item Value Reference Range Interpretation Comme nts FK 506 (test code = 4878503736) 7 ng/mL MARLENE (test code = MARLENE) [...] ?(>12 mo) ? ?8-10 Method by: ?Chemiflex, First Aid Nurse i1000 [facility]ervilleTacrolimus, Imrky5359-70-09 14:05:00* Test Item Value Reference Range Interpretation Comme nts FK 506 (test code = 7986529112) 7 ng/mL MARLENE (test code = MARLENE) [...] ?(>12 mo) ? ?8-10 Method by: ?Chemiflex, First Aid Nurse i1000 [facility]ervilleTacrolimus, Rxhdl1929-84-82 14:05:00* Test Item Value Reference Range Interpretation Comme nts FK 506 (test code = 7889920746) 7 ng/mL MARLENE (test code = MARLENE) [...] ?(>12 mo) ? ?8-10 Method by: ?Chemiflex, First Aid Nurse i1000 [facility] with Cahzdpbqwmbj0006-92-99 21:08:35* Test Item Value Reference Range Interpretation [...] 31.3 g/dL 31.2-35.0 RDW-SD (test code = 54246-0) 46.7 fL 38.5-51.6 RDW-CV (test code = 788-0) 13.3 % 12.1-15.4 PLT (test code = 777-3) 145 See_Comment L [Automated messa ge] The system which generated this result transmitted reference range: 150 - 328 10*3/?L. The reference range was not used to interpret this result as normal/abnormal. MPV (test code = 59560-5) 11.8 fL 9.8-13.0 NRBC/100 WBC (test code = 5038176993) 0.0 See_Comment [Automated me ssage] The system which generated this result transmitted reference range: 0.0 - 10.0 /100 WBCs. The reference range was not used to interpret this result as normal/abnormal. NRBC x10^3 (test code = 5121725686) See_Comment [Automated messa ge] The system which generated this result transmitted reference range: 10*3/?L. The reference range was not used to interpret this result as normal/abnormal. GRAN MAT (NEUT) % (test code = 770-8) 80.2 % IMM GRAN % (test code = 8196546841) 0.30 % LYMPH % (test code = 736-9) 8.6 % MONO % (test code = 5905-5) 8.3 % EOS % (test code = 713-8) 1.8 % BASO % (test code = 706-2) 0.8 % GRAN MAT x10^3(ANC) (test code = 3508112391) 6.26 10*3/uL 1.99-6.95 IMM GRAN x10^3 (test code = 3466848741) 0.00-0.06 LYMPH x10^3 (test code = 731-0) 0.67 10*3/uL 1.09-3.23 L MONO x10^3 (test code = 742-7) 0.65 10*3/uL 0.36-1.02 EOS x10^3 (test code = 711-2) 0.14 10*3/uL 0.06-0.53 BASO x10^3 (test code = 704-7) 0.06 10*3/uL 0.01-0.09 Lab Interpretation (test code = 63568-8) Abnormal [facility] with Vvzvaryefnbf8232-74-14 21:08:35* Test Item Value Reference Range Interpretation [...] 31.3 g/dL 31.2-35.0 RDW-SD (test code = 66119-9) 46.7 fL 38.5-51.6 RDW-CV (test code = 788-0) 13.3 % 12.1-15.4 PLT (test code = 777-3) 145 See_Comment L [Automated messa ge] The system which generated this result transmitted reference range: 150 - 328 10*3/?L. The reference range was not used to interpret this result as normal/abnormal. MPV (test code = 79727-5) 11.8 fL 9.8-13.0 NRBC/100 WBC (test code = 2441590997) 0.0 See_Comment [Automated me ssage] The system which generated this result transmitted reference range: 0.0 - 10.0 /100 WBCs. The reference range was not used to interpret this result as normal/abnormal. NRBC x10^3 (test code = 9455289859) See_Comment [Automated messa ge] The system which generated this result transmitted reference range: 10*3/?L. The reference range was not used to interpret this result as normal/abnormal. GRAN MAT (NEUT) % (test code = 770-8) 80.2 % IMM GRAN % (test code = 6902236025) 0.30 % LYMPH % (test code = 736-9) 8.6 % MONO % (test code = 5905-5) 8.3 % EOS % (test code = 713-8) 1.8 % BASO % (test code = 706-2) 0.8 % GRAN MAT x10^3(ANC) (test code = 3463689270) 6.26 10*3/uL 1.99-6.95 IMM GRAN x10^3 (test code = 4492078904) 0.00-0.06 LYMPH x10^3 (test code = 731-0) 0.67 10*3/uL 1.09-3.23 L MONO x10^3 (test code = 742-7) 0.65 10*3/uL 0.36-1.02 EOS x10^3 (test code = 711-2) 0.14 10*3/uL 0.06-0.53 BASO x10^3 (test code = 704-7) 0.06 10*3/uL 0.01-0.09 Lab Interpretation (test code = 04482-4) Abnormal [facility] with [id number] 21:08:35* Test Item Value Reference Range Interpretation [...] 31.3 g/dL 31.2-35.0 RDW-SD (test code = 73511-9) 46.7 fL 38.5-51.6 RDW-CV (test code = 788-0) 13.3 % 12.1-15.4 PLT (test code = 777-3) 145 See_Comment L [Automated messa ge] The system which generated this result transmitted reference range: 150 - 328 10*3/?L. The reference range was not used to interpret this result as normal/abnormal. MPV (test code = 92165-0) 11.8 fL 9.8-13.0 NRBC/100 WBC (test code = 3441527871) 0.0 See_Comment [Automated [employer] ssage] The system which generated this result transmitted reference range: 0.0 - 10.0 /100 WBCs. The reference range was not used to interpret this result as normal/abnormal. NRBC x10^3 (test code = 0600309646) See_Comment [Automated messa ge] The system which generated this result transmitted reference range: 10*3/?L. The reference range was not used to interpret this result as normal/abnormal. GRAN MAT (NEUT) % (test code = 770-8) 80.2 % IMM GRAN % (test code = 5966176959) 0.30 % LYMPH % (test code = 736-9) 8.6 % MONO % (test code = 5905-5) 8.3 % EOS % (test code = 713-8) 1.8 % BASO % (test code = 706-2) 0.8 % GRAN MAT x10^3(ANC) (test code = 1621940424) 6.26 10*3/uL 1.99-6.95 IMM GRAN x10^3 (test code = 9476464994) 0.00-0.06 LYMPH x10^3 (test code = 731-0) 0.67 10*3/uL 1.09-3.23 L MONO x10^3 (test code = 742-7) 0.65 10*3/uL 0.36-1.02 EOS x10^3 (test code = 711-2) 0.14 10*3/uL 0.06-0.53 BASO x10^3 (test code = 704-7) 0.06 10*3/uL 0.01-0.09 Lab Interpretation (test code = 94532-1) Abnormal [facility] with Sfzjjjmrogbk6483-72-26 21:08:35* Test Item Value Reference Range Interpretation [...] 31.3 g/dL 31.2-35.0 RDW-SD (test code = 40465-6) 46.7 fL 38.5-51.6 RDW-CV (test code = 788-0) 13.3 % 12.1-15.4 PLT (test code = 777-3) 145 See_Comment L [Automated messa ge] The system which generated this result transmitted reference range: 150 - 328 10*3/?L. The reference range was not used to interpret this result as normal/abnormal. MPV (test code = 31606-6) 11.8 fL 9.8-13.0 NRBC/100 WBC (test code = 3328743265) 0.0 See_Comment [Automated [employer] ssage] The system which generated this result transmitted reference range: 0.0 - 10.0 /100 WBCs. The reference range was not used to interpret this result as normal/abnormal. NRBC x10^3 (test code = 6182445980) See_Comment [Automated messa ge] The system which generated this result transmitted reference range: 10*3/?L. The reference range was not used to interpret this result as normal/abnormal. GRAN MAT (NEUT) % (test code = 770-8) 80.2 % IMM GRAN % (test code = 1466610468) 0.30 % LYMPH % (test code = 736-9) 8.6 % MONO % (test code = 5905-5) 8.3 % EOS % (test code = 713-8) 1.8 % BASO % (test code = 706-2) 0.8 % GRAN MAT x10^3(ANC) (test code = 8056659304) 6.26 10*3/uL 1.99-6.95 IMM GRAN x10^3 (test code = 5610415985) 0.00-0.06 LYMPH x10^3 (test code = 731-0) 0.67 10*3/uL 1.09-3.23 L MONO x10^3 (test code = 742-7) 0.65 10*3/uL 0.36-1.02 EOS x10^3 (test code = 711-2) 0.14 10*3/uL 0.06-0.53 BASO x10^3 (test code = 704-7) 0.06 10*3/uL 0.01-0.09 Lab Interpretation (test code = 44739-4) Abnormal [facility] with Wrwvjhnkduhj3483-19-75 21:08:35* Test Item Value Reference Range Interpretation [...] 31.3 g/dL 31.2-35.0 RDW-SD (test code = 72683-3) 46.7 fL 38.5-51.6 RDW-CV (test code = 788-0) 13.3 % 12.1-15.4 PLT (test code = 777-3) 145 See_Comment L [Automated messa ge] The system which generated this result transmitted reference range: 150 - 328 10*3/?L. The reference range was not used to interpret this result as normal/abnormal. MPV (test code = 90286-2) 11.8 fL 9.8-13.0 NRBC/100 WBC (test code = 9435465973) 0.0 See_Comment [Automated me ssage] The system which generated this result transmitted reference range: 0.0 - 10.0 /100 WBCs. The reference range was not used to interpret this result as normal/abnormal. NRBC x10^3 (test code = 6435556961) See_Comment [Automated messa ge] The system which generated this result transmitted reference range: 10*3/?L. The reference range was not used to interpret this result as normal/abnormal. GRAN MAT (NEUT) % (test code = 770-8) 80.2 % IMM GRAN % (test code = 9671566158) 0.30 % LYMPH % (test code = 736-9) 8.6 % MONO % (test code = 5905-5) 8.3 % EOS % (test code = 713-8) 1.8 % BASO % (test code = 706-2) 0.8 % GRAN MAT x10^3(ANC) (test code = 6891996736) 6.26 10*3/uL 1.99-6.95 IMM GRAN x10^3 (test code = 7903473927) 0.00-0.06 LYMPH x10^3 (test code = 731-0) 0.67 10*3/uL 1.09-3.23 L MONO x10^3 (test code = 742-7) 0.65 10*3/uL 0.36-1.02 EOS x10^3 (test code = 711-2) 0.14 10*3/uL 0.06-0.53 BASO x10^3 (test code = 704-7) 0.06 10*3/uL 0.01-0.09 Lab Interpretation (test code = 06137-7) [facility] (NA, K, CL, CO2, Glucose, BUN, Creatinine, CA)2022-07-12 20:55:16* Test Item Value Reference Range Interpretation Comme nts NA (test code = 4680776913) 140 mmol/L 135-145 K (test code = 3437301636) 4.6 mmol/L 3.5-5.0 CL (test code = 2259182852) 108 mmol/L 98-108 CO2 TOTAL (test code = 7184651766) 26 mmol/L 23-31 AGAP (test code = 7056433378) 6 2-16 BUN (test code = 2085697451) 28 mg/dL 7-23 H GLUCOSE (test code = 4800278763) 120 mg/dL 70-110 H CREATININE (test code = 1605579299) 1.94 mg/dL 0.60-1.25 H CALCIUM (test code = 5856799295) 10.1 mg/dL 8.6-10.6 eGFR (test code = 2394774857) 34.8 mL/min/1.73m2 MARLENE (test code = MARLENE) [...] imaging tests). Lab Interpretation (test code = 04064-3) Abnormal [facility] Ctdmv0742-79-42 20:55:16* Test Item Value Reference Range Interpretation Comme nts MAGNESIUM (test code = 6136541640) 2.0 mg/dL 1.7-2.4 Lab Interpretation (test cod e = 93864-8) Normal [facility] (NA, K, CL, CO2, Glucose, BUN, Creatinine, CA)2022-07-12 20:55:16* Test Item Value Reference Range Interpretation Comme nts NA (test code = 8282980102) 140 mmol/L 135-145 K (test code = 7863626330) 4.6 mmol/L 3.5-5.0 CL (test code = 8918515249) 108 mmol/L 98-108 CO2 TOTAL (test code = 8034121355) 26 mmol/L 23-31 AGAP (test code = 4567420924) 6 2-16 BUN (test code = 8618917292) 28 mg/dL 7-23 H GLUCOSE (test code = 6227267673) 120 mg/dL 70-110 H CREATININE (test code = 0319998019) 1.94 mg/dL 0.60-1.25 H CALCIUM (test code = 5427855474) 10.1 mg/dL 8.6-10.6 eGFR (test code = 2472916894) 34.8 mL/min/1.73m2 MARLENE (test code = MARLENE) [...] imaging tests). Lab Interpretation (test code = 26379-6) Abnormal [facility] [id number] 20:55:16* Test Item Value Reference Range Interpretation Comme nts MAGNESIUM (test code = 1615516724) 2.0 mg/dL 1.7-2.4 Lab Interpretation (test cod e = 44147-8) Normal [facility] Metabolic Panel (NA, K, CL, CO2, Glucose, BUN, Creatinine, CA)2022-07-12 20:55:16* Test Item Value Reference Range Interpretation Comme nts NA (test code = 0412560355) 140 mmol/L 135-145 K (test code = 5037853808) 4.6 mmol/L 3.5-5.0 CL (test code = 8465603232) 108 mmol/L 98-108 CO2 TOTAL (test code = 8725975831) 26 mmol/L 23-31 AGAP (test code = 8844402164) 6 2-16 BUN (test code = 5611518758) 28 mg/dL 7-23 H GLUCOSE (test code = 4455823050) 120 mg/dL 70-110 H CREATININE (test code = 5297685592) 1.94 mg/dL 0.60-1.25 H CALCIUM (test code = 8833514144) 10.1 mg/dL 8.6-10.6 eGFR (test code = 0908811156) 34.8 mL/min/1.73m2 MARLENE (test code = MARLENE) [...] imaging tests). Lab Interpretation (test code = 28367-8) Abnormal [facility] [id number] 20:55:16* Test Item Value Reference Range Interpretation Comme nts MAGNESIUM (test code = 6323559550) 2.0 mg/dL 1.7-2.4 Lab Interpretation (test cod e = 38554-4) Normal [facility] (NA, K, CL, CO2, Glucose, BUN, Creatinine, CA)2022-07-12 20:55:16* Test Item Value Reference Range Interpretation Comme nts NA (test code = 8786647295) 140 mmol/L 135-145 K (test code = 8265570799) 4.6 mmol/L 3.5-5.0 CL (test code = 3577239005) 108 mmol/L 98-108 CO2 TOTAL (test code = 8040055659) 26 mmol/L 23-31 AGAP (test code = 9270877083) 6 2-16 BUN (test code = 5990389566) 28 mg/dL 7-23 H GLUCOSE (test code = 0802965940) 120 mg/dL 70-110 H CREATININE (test code = 1248899348) 1.94 mg/dL 0.60-1.25 H CALCIUM (test code = 9072920544) 10.1 mg/dL 8.6-10.6 eGFR (test code = 6886267046) 34.8 mL/min/1.73m2 MARLENE (test code = MARLENE) [...] imaging tests). Lab Interpretation (test code = 61003-4) Abnormal [facility] Eygot9755-50-70 20:55:16* Test Item Value Reference Range Interpretation Comme nts MAGNESIUM (test code = 7709826798) 2.0 mg/dL 1.7-2.4 Lab Interpretation (test cod e = 45709-3) Normal [facility] Metabolic Panel (NA, K, CL, CO2, Glucose, BUN, Creatinine, CA)2022-07-12 20:55:16* Test Item Value Reference Range Interpretation Comme nts NA (test code = 8859880234) 140 mmol/L 135-145 K (test code = 4349881846) 4.6 mmol/L 3.5-5.0 CL (test code = 4852797085) 108 mmol/L 98-108 CO2 TOTAL (test code = 6752979196) 26 mmol/L 23-31 AGAP (test code = 3898418969) 6 2-16 BUN (test code = 1247466124) 28 mg/dL 7-23 H GLUCOSE (test code = 4380271349) 120 mg/dL 70-110 H CREATININE (test code = 2073945611) 1.94 mg/dL 0.60-1.25 H CALCIUM (test code = 1627673016) 10.1 mg/dL 8.6-10.6 eGFR (test code = 7757603036) 34.8 mL/min/1.73m2 MARLENE (test code = MARLENE) [...] imaging tests). Lab Interpretation (test code = 71542-1) Abnormal [facility] [id number] 20:55:16* Test Item Value Reference Range Interpretation Comme nts MAGNESIUM (test code = 2645252706) 2.0 mg/dL 1.7-2.4 Lab Interpretation (test cod e = 22040-4) Normal [facility] [id number] 20:54:56* Test Item Value Reference Range Interpretation Comme nts PHOSPHORUS (test code = 3936945709) 2.3 mg/dL 2.5-5.0 L Lab Interpretation (test cod e = 93160-9) Abnormal [facility] [id number] 20:54:56* Test Item Value Reference Range Interpretation Comme nts PHOSPHORUS (test code = 5674456129) 2.3 mg/dL 2.5-5.0 L Lab Interpretation (test cod e = 52212-8) Abnormal [facility] [id number] 20:54:56* Test Item Value Reference Range Interpretation Comme nts PHOSPHORUS (test code = 5079648856) 2.3 mg/dL 2.5-5.0 L Lab Interpretation (test cod e = 21343-1) Abnormal [facility] [id number] 20:54:56* Test Item Value Reference Range Interpretation Comme nts PHOSPHORUS (test code = 8940578013) 2.3 mg/dL 2.5-5.0 L Lab Interpretation (test cod e = 30064-3) Abnormal [facility] Msvqi3323-08-46 20:54:56* Test Item Value Reference Range Interpretation Comme nts PHOSPHORUS (test code = 4097053642) 2.3 mg/dL 2.5-5.0 L Lab Interpretation (test cod e = 39644-4) Abnormal [facility] Metabolic Panel (NA, K, CL, CO2, Glucose, BUN, Creatinine, CA)2022-05-30 20:18:40* Test Item Value Reference Range Interpretation Comme nts NA (test code = 8636920292) 141 mmol/L 135-145 K (test code = 4865516720) 4.7 mmol/L 3.5-5.0 CL (test code = 8198153847) 109 mmol/L 98-108 H CO2 TOTAL (test code = 0818836613) 28 mmol/L 23-31 AGAP (test code = 2558378659) 4 2-16 BUN (test code = 4003164762) 18 mg/dL 7-23 GLUCOSE (test code = 8046388197) 91 mg/dL 70-110 CREATININE (test code = 3278878182) 1.50 mg/dL 0.60-1.25 H CALCIUM (test code = 7809197133) 9.9 mg/dL 8.6-10.6 eGFR (test code = 0553657552) 46.8 mL/min/1.73m2 MARLENE (test code = MARLENE) [...] imaging tests). Lab Interpretation (test code = 56284-1) Abnormal [facility] [id number] 20:18:40* Test Item Value Reference Range Interpretation Comme nts MAGNESIUM (test code = 1236437059) 1.9 mg/dL 1.7-2.4 Lab Interpretation (test cod e = 19300-9) Normal [facility] [id number] 20:18:19* Test Item Value Reference Range Interpretation Comme nts PHOSPHORUS (test code = 1849945427) 2.9 mg/dL 2.5-5.0 Lab Interpretation (test cod e = 59261-2) Normal [facility] with Nzvgundlruhe0017-29-14 20:09:39* Test Item Value Reference Range Interpretation Comme nts WBC (test code = 6690-2) 4.58 See_Comment [Automated [employer] ge] The system which generated this result transmitted reference range: 4.20 - 10.70 10*3/?L. The reference range was not used to interpret this result as normal/abnormal. RBC (test code = 789-8) 4.15 See_Comment L [Automated [employer] ge] The system which generated this result [...] 31.7 g/dL 31.2-35.0 RDW-SD (test code = 63248-1) 49.0 fL 38.5-51.6 RDW-CV (test code = 788-0) 13.7 % 12.1-15.4 PLT (test code = 777-3) 133 See_Comment L [Automated [employer]] The system which generated this result transmitted reference range: 150 - 328 10*3/?L. The reference range was not used to interpret this result as normal/abnormal. MPV (test code = 01110-5) 12.2 fL 9.8-13.0 IPF % (test code = 4488854189) 9.8 % 1.2-10.7 Platelet count measured by fluorescence method. NRBC/100 WBC (test code = 9238548457) 0.0 See_Comment [Automated [employer] ssage] The system which generated this result transmitted reference range: 0.0 - 10.0 /100 WBCs. The reference range was not used to interpret this result as normal/abnormal. NRBC x10^3 (test code = 3819198883) See_Comment [Automated [employer] ge] The system which generated this result transmitted reference range: 10*3/?L. The reference range was not used to interpret this result as normal/abnormal. GRAN MAT (NEUT) % (test code = 770-8) 55.7 % IMM GRAN % (test code = 0531003568) 0.20 % LYMPH % (test code = 736-9) 25.3 % MONO % (test code = 5905-5) 13.8 % EOS % (test code = 713-8) 4.1 % BASO % (test code = 706-2) 0.9 % GRAN MAT x10^3(ANC) (test code = 1777419660) 2.55 10*3/uL 1.99-6.95 IMM GRAN x10^3 (test code = 9575832464) 0.00-0.06 LYMPH x10^3 (test code = 731-0) 1.16 10*3/uL 1.09-3.23 MONO x10^3 (test code = 742-7) 0.63 10*3/uL 0.36-1.02 EOS x10^3 (test code = 711-2) 0.19 10*3/uL 0.06-0.53 BASO x10^3 (test code = 704-7) 0.04 10*3/uL 0.01-0.09 Lab Interpretation (test code = 42976-0) Abnormal [facility] [id number] 00:00:00* Test Item Value Reference Range Interpretation Comme [facility] DD-cfDNA (External Results) (test code = 5126) See_Comment [Automated [employer] ge] The system which generated this result transmitted reference range: <=1.0. The reference range was not used to interpret this result as normal/abnormal. [facility] GRP A STREP (MOLECULAR)2022-03-12 22:00:00* Test Item Value Reference Range Interpretation Comme nts POCT GP A STREP (test code = 27188-8) negative Negative - Negative [facility] GRP A STREP (MOLECULAR)2022-03-12 22:00:00* Test Item Value Reference Range Interpretation Comme nts POCT GP A STREP (test code = 64440-5) negative Negative - Negative [facility] HEMOGLOBIN A1C [id number] 17:04:00* Test Item Value Reference Range Interpretation Comme [facility] POCT HBA1C (test code = 4548-4) 5.6 % 4-6 [facility] HEMOGLOBIN A1C [id number] 17:04:00* Test Item Value Reference Range Interpretation Comme [facility] POCT HBA1C (test code = 4548-4) 5.6 % 4-6 [facility] VIRUS (HCV) BY QUANTITATIVE NAAT 2022 20:04:37* Test Item Value Reference Range Interpretation Comme [facility] HCV Quantitative Interpretation (test code = 4765616247) Not Detected Not Detected MARLENE (test code = MARLENE) The Aptima HCV Francis nt Dx assay is an FDA-approved real-time catalog librarian-mediated amplification (TMA) test used for both detection [...] clinically indicated. Lab Interpretation (test code = 94068-9) Normal [facility]ac[facility], Cqast2210-41-19 16:13:27* Test Item Value Reference Range Interpretation Comme nts FK 506 (test code = 2191856390) 5 ng/mL MARLENE (test code = MARLENE) [...] ?(>12 mo) ? ?8-10 Method by: ?Chemiflex, First Aid Nurse i1000 [facility] with Zjtcivafyljb9022-50-44 22:53:40* Test Item Value Reference Range Interpretation [...] 32.0 g/dL 31.2-35 RDW-SD (test code = 61995-4) 47.1 fL 38.5-51.6 RDW-CV (test code = 788-0) 13.1 % 12.1-15.4 PLT (test code = 777-3) See_Comment L [Automated messa ge] The system which generated this result transmitted reference range: 150 - 328 10*3/?L. The reference range was not used to interpret this result as normal/abnormal. MPV (test code = 99417-1) 12.8 fL 9.8-13 IPF % (test code = 3398150665) 6.8 % 1.2-10.7 Platelet count measured by fluorescence method. NRBC/100 WBC (test code = 1018820856) See_Comment [Automated [employer] ssage] The system which generated this result transmitted reference range: 0.0 - 10.0 /100 WBCs. The reference range was not used to interpret this result as normal/abnormal. NRBC x10^3 (test code = 5204003819) See_Comment [Automated messa ge] The system which generated this result transmitted reference range: 10*3/?L. The reference range was not used to interpret this result as normal/abnormal. GRAN MAT (NEUT) % (test code = 770-8) 72.9 % IMM GRAN % (test code = 9894378306) 0.50 % LYMPH % (test code = 736-9) 14.6 % MONO % (test code = 5905-5) 8.7 % EOS % (test code = 713-8) 2.2 % BASO % (test code = 706-2) 1.1 % GRAN MAT x10^3(ANC) (test code = 5417794250) 4.04 10*3/uL 1.99-6.95 IMM GRAN x10^3 (test code = 9552643117) 0.03 10*3/uL 0-0.06 LYMPH x10^3 (test code = 731-0) 0.81 10*3/uL 1.09-3.23 L MONO x10^3 (test code = 742-7) 0.48 10*3/uL 0.36-1.02 EOS x10^3 (test code = 711-2) 0.12 10*3/uL 0.06-0.53 BASO x10^3 (test code = 704-7) 0.06 10*3/uL 0.01-0.09 Lab Interpretation (test code = 16268-8) Abnormal [facility] [id number] 21:15:06* Test Item Value Reference Range Interpretation Comme nts MAGNESIUM (test code = 1509789033) 1.7 mg/dL 1.7-2.4 Lab Interpretation (test cod e = 67763-4) [facility]170[facility] 21:15:06* Test Item Value Reference Range Interpretation Comme nts NA (test code = 4342896116) 140 mmol/L 135-145 K (test code = 8412201436) 4.4 mmol/L 3.5-5 CL (test code = 6775048383) 105 mmol/L 98-108 CO2 TOTAL (test code = 7301994037) 29 mmol/L 23-31 AGAP (test code = 8975550792) 2-16 BUN (test code = 7268080353) 17 mg/dL 7-23 GLUCOSE (test code = 5059323054) 119 mg/dL 70-110 H CREATININE (test code = 3256767923) 1.57 mg/dL 0.6-1.25 H TOTAL BILI (test code = 9733646832) 0.6 mg/dL 0.1-1.1 CALCIUM (test code = 3448033611) 10.8 mg/dL 8.6-10.6 H T PROTEIN (test code = 0361241235) 8.4 g/dL 6.3-8.2 H ALBUMIN (test code = 9551942652) 4.4 g/dL 3.5-5 ALK PHOS (test code = 3986675618) 76 U/L 34-122 ALTv (test code = 1742-6) 23 U/L 5-50 AST(SGOT) (test code = 4036872366) 42 U/L 13-40 H eGFR (test code = 8887384831) mL/min/1.73m2 MARLENE (test code = MARLENE) Association [...] imaging tests). Lab Interpretation (test code = 96002-6) Abnormal [facility] [id number] 21:14:45* Test Item Value Reference Range Interpretation Comme nts PHOSPHORUS (test code = 9701506759) 2.8 mg/dL 2.5-5 Lab Interpretation (test cod e = 87184-1) Normal [facility] Consult Notes Date/Time Note Provider Source 2024-11-11 16:10:33 Associated Order(s): IP CONSULT TO NEPHROLOGY Reason For Consult History of kidney transplant History Of Present Illness Cely Myers is a 69 y.o. male with PMH significant for CAD s/p CABG in 2023, ESRD s/p DDRT, prediabetes, and HTN who presented to the ED due to syncopal episode at home witnessed by friend. Transplant Nephrology consulted for help with immunosuppression management Pertinent Transplant History Transplant date: 2004 Transplant type: DDRT Cause of kidney failure: Hypertension Duration of pretransplant dialysis: 7 Years Recipient still have a permanent dialysis access: Panel reactive antibodies at transplantation: unknown T-cell crossmatch: B-cell crossmatch: ABO-incompatible transplant: No Donor specific antibodies at transplantation: Unknown Induction: Delayed graft function requiring dialysis: Patient denies Maintenance immunosuppression: Episodes of rejection: 2 Cellular: Antibody Mediated: BK viremia: Patient denies CMV viremia: Patient denies Posttransplant diabetes: Prior biopsy results: Change on health insurance coverage: No Skin cancer: No Past Medical History He has no past medical history on file. Surgical History He has no past surgical history on file. Social History He reports that he has never smoked. He has never used smokeless tobacco. He reports current alcohol use. He reports that he does not use drugs. Allergies Patient has no known allergies. Medications Medications Prior to Admission Medication Sig Dispense Refill Last Dose/Taking allopurinol (Zyloprim) 100 MG tablet Take 100 mg by mouth every morning. Taking amLODIPine (Norvasc) 10 MG tablet Take 10 mg by mouth every morning. Taking calcium carbonate (Os-Willie) 1250 (500 Ca) MG tablet Take 1 tablet by mouth every morning. Taking ezetimibe (Zetia) 10 MG tablet Take 10 mg by mouth every morning. Taking furosemide (Lasix) 20 MG tablet Take 40 mg by mouth in the morning and 40 mg in the evening. Taking labetalol (Normodyne) 200 MG tablet Take 400 mg by mouth in the morning and 400 mg in the evening. Taking lisinopril 5 MG tablet Take 5 mg by mouth every morning. Taking mirtazapine (Remeron) 7.5 MG tablet Take 7.5 mg by mouth at bedtime. Taking mycophenolate (Cellcept) 250 MG capsule Take 500 mg by mouth in the morning and 500 mg in the evening. Taking pravastatin (Pravachol) 40 MG tablet Take 40 mg by mouth at bedtime. Taking predniSONE (Deltasone) 5 MG tablet Take 5 mg by mouth every morning. Taking sucralfate (Carafate) 1 g tablet Take 1 g by mouth in the morning and 1 g at noon and 1 g in the evening and 1 g before bedtime. Taking tacrolimus (Prograf) 1 MG capsule Take 5 mg by mouth in the morning and 5 mg in the evening. Taking tamsulosin (Flomax) 0.4 MG 24 hr capsule Take 0.8 mg by mouth at bedtime. Taking dupilumab (Dupixent) 300 MG/2ML Pre-filled Auto-Injector Inject 300 mg under the skin every 14 days. fluticasone (Flonase) 50 MCG/ACT nasal spray Administer 2 sprays into each nostril 1 time each day. Shake gently. Before first use, prime pump. After use, clean tip and replace cap. magnesium oxide (Mag-Ox) 250 MG tablet Take 250 mg by mouth 1 time each day. ticagrelor (Brilinta) 90 MG tablet Take 90 mg by mouth in the morning and 90 mg in the evening. Review of Systems Review of Systems Constitutional: Negative for chills, fatigue and fever. HENT: Negative for congestion, hearing loss, sinus pressure and sinus pain. Eyes: Negative for photophobia, redness and visual disturbance. Respiratory: Negative for cough, shortness of breath and stridor. Cardiovascular: Negative for chest pain, palpitations and leg swelling. Gastrointestinal: Negative for constipation, nausea and vomiting. Endocrine: Negative for polydipsia, polyphagia and polyuria. Genitourinary: Negative for dysuria and hematuria. Skin: Negative for rash and wound. Neurological: Positive for syncope. Negative for dizziness, weakness and headaches. Psychiatric/Behavioral: Negative for behavioral problems, confusion and hallucinations. Physical Exam General: No acute distress Neck: No carotid bruits. No JVP elevation Respiratory: Normal effort. No crackles/rales. No wheezes Cardiovascular: Rate is regular. Rhythm is regular. Normal S1 and S2. Holosystolic murmur over the left sternal border Abdomen: Non-tender. Non-distended. Lower extremities: No pitting edema Neuro: AAO x3. Speech intact. Psych: Normal affect. Normal mood. Skin: No cyanosis. No mottling. Last Recorded Vitals Blood pressure (!) 165/91, pulse 79, temperature 37.1 ?C (98.8 ?F), resp. rate (!) 26, height 1.753 m (5' 9"), weight 87.6 kg (193 lb 3.2 oz), SpO2 98%. Body mass index is 28.53 kg/m?. Relevant Results Pertinent Labs : Lab Results Component Value Date WBC 5.42 11/11/2024 Hgb 12.4 11/11/2024 Hct 39.7 11/11/2024 Plt Count 214 11/11/2024 Lab Results Component Value Date Sodium Lvl 140 11/11/2024 Potassium Lvl 3.9 11/11/2024 Chloride Lvl 109 (H) 11/11/2024 CO2 Lvl 20.5 11/11/2024 BUN 22 11/11/2024 Creatinine Lvl 1.99 (H) 11/11/2024 Glucose Lvl 84 11/11/2024 Lab Results Component Value Date Calcium Lvl 10.1 11/11/2024 Magnesium 1.88 11/11/2024 Phosphorus Lvl 2.0 (L) 11/11/2024 Cely Myers is a 69 y.o. male with PMH significant for CAD s/p CABG in 2023, ESRD s/p DDRT, prediabetes, and HTN who presented to the ED due to syncopal episode at home witnessed by friend. Allograft Function DDRT 2004 KATLYN on CKD Baseline creatinine is repotedly around 1.8 Patient presented with a Cr. Of 2.2, although it is slowly returning to baseline. The etiology of this KATLYN is most likely pre-renal injury in the setting of possible hypotension. - Ensure all medications are being dosed for eGFR -Avoid further nephrotoxins, contrast, NSAIDs - Please chart strict I/Os Maintenance Immunosuppression Patient has a history of 2 reported previous rejection episodes years ago, but denies any recent rejection episodes. Patient endorses compliance and does not report missing any doses. Home regimen: tacrolimus 5mg BID, Cellcept 500mg BID, Prednisone 5mg Daily - Please continue home regimen; no need to hold IS. - Please order daily tacrolimus troughs while admitted Syncope Cardiology and neurologic workup pending - Agree with holding diuretics for now - Recommend checking orthostatics and a serum uric acid to evaluate for volume depletion Patient discussed with Dr. Islas Assessment & Plan Syncope and collapse Coronary artery disease involving autologous artery coronary bypass graft without angina pectoris Essential hypertension -donor kidney transplant KATLYN (acute kidney injury) (HCC) Cosigned by Kalyn Islas MD at 11/12/2024 1:48 PM CDT Associated attestation - Kalyn Islas MD - 11/12/2024 1:48 PM CDT Transplant Nephrology Attending Attestation: I personally examined the patient and reviewed the interim history, physical exam, laboratory, and imaging as detailed in the Asaf Agarwal's note. The documentation reflects our collaborative assessment and plan. Assessment and plan discussed with Dr. Montalvo. Kalyn Islas M.D. Transplant Nephrology [facility] 2024-11-11 14:51:08 Images from the original note were not included. NEUROLOGIC CONSULTATION Name Of Patient: Cely Myers REFERRING PHYSICIAN: KAI Auguste MD Admission Date: 11/09/2024 Length of Stay: 2 Days Neurologic Consultation Date: 11/11/2024 Date of Service: 11/11/24 CSN: [id number] REASON FOR CONSULTATION: Syncope Subjective HISTORY OF PRESENT ILLNESS: Cely Myers is a very pleasant 69-year-old, right-handed, -Maltese gentleman whose past medical history is significant for, but not limited to; hypertension, hyperlipidemia, prediabetes, coronary artery disease status post coronary artery bypass graft x 3 vessels (per medical record). end-stage renal disease status post right DDRT (per medical record), obstructive sleep apnea, history of prior sepsis with E. coli, recurrent UTIs, polyclonal gammopathy, arthritis, history of nonsustained V. tach, status post open cholecystectomy, hepatitis C carrier, history of syphilis, nephrolithiasis, and history of prior pontine stroke (presumed 2023) and prior stroke at unknown location, who was sitting at home watching sports on [employer] with a friend and the friend's when he had his first syncopal episode without prodrome. The patient believes he was sitting in the chair or possibly attempting to stand when he was sat back down by his friend. He believes the entire episode lasted "a few minutes". The patient denies any aura, and his friends did not report any tonic-clonic movements at the scene. He also denies any tongue biting, incontinence, or postictal confusion. He notes that when he awakened his friend insisted that he go to to the hospital (he was reluctant). He notes that his friend performed CPR on him, but did not really know how to do it. He states he was life flighted and "I was more scared than I ever was in my life". He recalls feeling lightheaded after the event, to the point where he could barely walk. He denies any previous episodes of syncope, seizure, diplopia, dysarthria, dysphagia or focal motor or sensory symptoms. PRIOR STROKES: It should be noted that the patient is a very poor historian. He reportedly had a stroke in February or March 2024. He believes he was hospitalized at [facility]. When I mention to him that his CT scan shows a chronic infarct in the luis which is a dangerous area and most often caused by small vessel disease, he remembered that they told him it was a very dangerous area when he was hospitalized and that he was very amadou. He also reports that he had a stroke prior to that many years ago. However, he does not remember any of the symptoms with his 1st or 2nd stroke. He believes with the first stroke he may have been hospitalized at [facility] in [place]. REVIEW OF SYMPTOMS: Review of Systems Constitutional: Negative. HENT: Negative. Eyes: Negative. Respiratory: Negative. Cardiovascular: Negative. Gastrointestinal: Negative. Endocrine: Negative. Genitourinary: Negative. Musculoskeletal: Negative. Skin: Negative. Allergic/Immunologic: Negative. Neurological: Positive for dizziness, syncope and light-headedness. Negative for tremors, seizures, facial asymmetry, speech difficulty, weakness, numbness and headaches. Hematological: Negative. Psychiatric/Behavioral: Negative. PAST SURGICAL HISTORY: CABG x 3 on July 08, 2023 at [facility] (per medical record) patient did not remember the number of vessels or the exact timeframe. Renal transplant 2004 (unknown side, medical records suggest right from [facility].). AV fistula in the left arm x many. Status post RCA PCI 2009. Open cholecystectomy. Parathyroidectomy. Liver biopsy. MEDICAL PROBLEM LIST: Strokes x 2. Last 03/2024: Not sure symptoms. Not hospitalized. First: Medical records report 2018. Didn't know it. Second one [facility] ([facility]). Hypertension. Hyperlipidemia. Prediabetes. Coronary artery disease. End-stage renal disease on hemodialysis. History of V. tach (07/07/2023). 13 beats at 6:42 AM. Obstructive sleep apnea not on CPAP. Pyelonephritis/complicated UTI positive for E. coli (01/01/2017). Hepatitis C carrier. History of syphilis (09/11/2016). HSV-2 sero positive. Nephrolithiasis (12/14/2017). History of sepsis with E. coli (12/31/2016). 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 Arthritis. Atopic dermatitis. SCHEDULED MEDICATION: allopurinol, 100 mg, Oral, q AM amLODIPine, 10 mg, Oral, q AM aspirin, 81 mg, Oral, Daily ezetimibe, 10 mg, Oral, q AM [Held by provider] furosemide, 20 mg, Oral, BID labetalol, 200 mg, Oral, q12h [Held by provider] lisinopril, 5 mg, Oral, q AM minoxidil, 5 mg, Oral, BID mirtazapine, 7.5 mg, Oral, Nightly mycophenolate, 500 mg, Oral, BID Oyster Shell Calcium, 500 mg, Oral, q AM pravastatin, 40 mg, Oral, Nightly predniSONE, 5 mg, Oral, q AM sodium chloride, 10 mL, Intravenous, q12h TORREY sucralfate, 1 g, Oral, 4x daily tacrolimus, 5 mg, Oral, BID tamsulosin, 0.8 mg, Oral, Nightly ticagrelor, 90 mg, Oral, q12h TORREY TOBACCO USE: Occasional in the past. ALCOHOL USE: Social. Small amount. RECREATIONAL DRUG USE: THC when young. ALLERGIES: No Known Allergies SOCIAL HISTORY: . 2 children. [place]: [facility]. FAMILY HISTORY: No known diseases in family, but records from [facility] suggest otherwise. Brother has hypertension and coronary artery disease with myocardial infarction at age 45. Mother has hypertension. Sister has hypertension. Objective PHYSICAL EXAMINATION: GENERAL: Blood pressure 135/82, pulse 85, temperature 37.1 ?C (98.8 ?F), resp. rate 12, height 1.753 m (5' 9"), weight 87.6 kg (193 lb 3.2 oz), SpO2 97%. HEENT: Normocephalic and atraumatic. PERRLA. Sclerae are anicteric. Conjunctivae pink. Tympanic membranes intact. Oropharynx clear. NECK: Supple. No bruits. LUNGS: Clear to auscultation and percussion. HEART: Regular rate and rhythm without murmur or gallop. ABDOMEN: Soft, nontender, normal active bowel sounds all quadrants. BACK: Without CVAT, spine, or paraspinal tenderness. : Deferred. EXTREMITIES: Large AV fistula left arm. Without clubbing cyanosis or edema. NEUROLOGIC EXAMINATION: MENTAL STATUS: Awake. Alert. Cooperative. Oriented. Poor historian. Follows all commands. No evidence of left light confusion. SPEECH: Normal. CRANIAL NERVES II-XII: Pupils are 3/3 reactive to 2/2 to light and accommodation. Visual anglin are intact to finger count. Funduscopic examination: Sharp/flat discs. EOMI. No evidence of nystagmus. Sensation equal in all distributions of the trigeminal nerve. [place] strength normal. Facial expression symmetric. Hearing intact bilaterally finger rub. Uvula midline. Tongue midline. Shrug normal. MOTOR: No evidence of pronation or drift. Strength 5/5 in both upper and lower extremities. Tone normal. No evidence of atrophy or fasciculations. SENSORY: Grossly intact to all modalities including light touch, temperature, vibration and proprioception. CEREBELLAR: Normal. Specifically, no evidence of dyssynergia, dysmetria or dysdiadochokinesis. REFLEXES: Symmetric. Hypoactive. Specifically, (right over left), biceps 0/0, triceps 0/0, patella 0/0, Achilles 0/0. Plantar responses: Flexor bilaterally. STATION/GAIT: Deferred. ABBREVIATED LAB : Lab Results Component Value Date WBC 5.42 11/11/2024 Hgb 12.4 11/11/2024 Hct 39.7 11/11/2024 Plt Count 214 11/11/2024 Lab Results Component Value Date Creatinine Lvl 1.99 (H) 11/11/2024 BUN 22 11/11/2024 Sodium Lvl 140 11/11/2024 Potassium Lvl 3.9 11/11/2024 Chloride Lvl 109 (H) 11/11/2024 CO2 Lvl 20.5 11/11/2024 No results found for: "AST", "ALT", "ALKPHOS" Lab Results Component Value Date Calcium Lvl 10.1 11/11/2024 Magnesium 1.88 11/11/2024 Phosphorus Lvl 2.0 (L) 11/11/2024 Lab Results Component Value Date Hgb A1C 5.86 (H) 11/09/2024 No results found for: "PTT", "PT", "INR" No results found for: "TSH", "C2LBLTJ", "K0HKPOK" No results found for: "RPR" No results found for: "HIV1X2" No results found for: "KRYSTLE", "RF", "ESR" No results found for: "SMMUSCABTIT", "SMMUSCABSCR", "ACTINSMMUSAB", "MITOAB" No results found for: "PT" No results found for: "PTT" No results found for: "[id number]" No results found for: "FOLATE", "FOLATERBC" RELEVANT NEUROIMAGING: CT BRAIN WO IV CONTRAST Result Date: 11/10/2024 EXAM: CT BRAIN WITHOUT CONTRAST DATE: 11/10/2024 0:01 INDICATION: syncope COMPARISON: None. TECHNIQUE: Axial CT images of the brain were obtained. Sagittal and coronal reformats. IV contrast: None DLP: Refer to CT protocol form FINDINGS: There is no hemorrhage or mass lesion. Age-indeterminate lacunar infarcts involving the bilateral basal ganglia and right luis. The ventricles and sulci are enlarged from chronic brain parenchymal volume loss. Periventricular white matter hypoattenuation is nonspecific but likely represents chronic microvascular ischemic changes. The skull base, calvarium, and included facial bones are unremarkable. Trace left maxillary sinus opacification. Partial opacification of the left mastoid air cells. IMPRESSION: * No acute intracranial hemorrhage or territorial infarct. * Age-indeterminate lacunar infarcts involving the bilateral basal ganglia and right luis. * Chronic parenchymal volume loss and microvascular changes. Report finalized by: Johanne Griffin MD 11/10/2024 0:34 No MRI head results found for the past 12 months No spine imaging results found for the past 12 months Transthoracic echo (TTE) complete Result Date: 11/10/2024 Intravenous contrast (Lumason) was used to enhance endocardial border definition. There is severe concentric hypertrophy. Systolic function is normal with an estimated ejection fraction of 66%, by biplane method of discs. There is grade 2 diastolic dysfunction increased filling pressures and reduced tissue Dopplervelocities. No LV thrombus was visualized with use of Lumason contrast. Right ventricle is normal in size. Right ventricular systolic function is normal (tricuspid annular planar systolic excursion is 2.0 cm). Left atrium is enlarged. Right atrium is grossly normal in size. Aortic valve is trileaflet. Mild calcification of aortic valve leaflets. Aortic sclerosis is present. No aortic regurgitation. Mitral valve with mild annular calcification. No mitral regurgitation. Tricuspid valve leaflets are normal. There is trace tricuspid regurgitation. Estimated right ventricular systolic pressure is 17 mmHg, assuming a right atrial pressure of 3 mmHg. Pulmonic valve appears normal in structure with trace regurgitation. Aortic root is normal for patient's age, gender, and body surface area. Inferior vena cava is normal with >50% respiratory variation in size. No pericardial effusion is seen. When compared to prior study from 07/03/23, no significant change is noted. NEUROLOGIC IMPRESSION & RECOMMENDATIONS: IMPRESSION: 1. Syncope. 2. Prior history of "strokes" x 2 with pontine stroke likely occurring at the end of last year (2023) and hospitalized as [facility]. 3. Cerebral microvascular ischemic disease. DISCUSSION: The patient describes a brief syncopal episode that was witnessed by his friend and his friend's . These were associated with symptoms of lightheadedness following the event. The patient was not witnessed to have any generalized tonic-clonic seizure activity, postictal confusion, tongue biting, incontinence, and has no prior history of seizures. The patient does have a prior history of lightheadedness, and on 1 occasion nonsustained V. tach. In addition, the patient also has a history of prior strokes including what sounds like his pontine stroke in March 2024 and a prior infarct. He has very poor recollection of his symptoms at the time of both strokes but remembers being told the last 1 could have been serious because of its location. Medical records suggest the first stroke occurred around 2018, but there is no actual documentation. Neurologic consultation is obtained predominantly for the evaluation of syncope. His lack of symptoms did not suggest vertebrobasilar insufficiency, subarachnoid hemorrhage, or seizure. His neurologic examination is non focal and noncontrast CT scan of the brain demonstrates lacunar infarctions in the bilateral basal ganglia and and right luis. At this time, I do not see a need for EEG or MRI of the brain with and without contrast (ordered by the primary service). That said, carotid Dopplers would be appropriate. Echocardiogram has suggested the normal ejection fraction. RECOMMENDATION: 1. Bilateral carotid ultrasound. 2. Cardiac workup as you are doing. 3. If no cardiac source found, can obtain stroke limited MRI of the brain without contrast. Sections of this note may have been created using the [employer] voice-recognition transcribing system. Typographical errors and incorrect words or phrases may have been missed during proofreading. Please interpret accordingly. Kimberlyn Huff 2023-07-11 11:32:00 Associated Order(s): CONSULT ADULT OCCUPATIONAL THERAPY OT GENERAL EVALUATION Consult received via [employer], EMR reviewed and evaluation completed 07/11/23. Patient [...] transfer bench, Long handled sponge, Long handled electrochemist, and Sock aide PLAN OF CARE: At [...] Supervision Grooming: Supervision, washed hands with hand family specialist while sitting in bedside chair. Bathing: NT, [...] sit<>stand Max Assistance, ambulation <>bedside chair with [place]. Patient/caregiver educated on: Adaptive equipment and ADL [...] 03/08/2005 CHEST EXPLORATION N/A 07/08/2023 Surgeon: Jt Alejandro MD; Location: [facility] LOCATION CHOLECYSTECTOMY 09/28/2014 COLONOSCOPY N/A 10/17/2016 Surgeon: Cheri Mcintyre MD; Location: [facility] OR Location COLONOSCOPY N/A 11/07/2020 Surgeon: Jasmyne Roper MD; Location: [facility] OR Location CORONARY ARTERY BYPASS GRAFT N/A 07/08/2023 Surgeon: Jt Alejandro MD; Location[facility] ENDOSCOPIC VEIN HARVEST (SHX) Left 07/08/2023 Surgeon: Jt Alejandro MD; Location: [facility] LOCATION LIVER BIOPSY 03/27/2004 NEPHRECTOMY 05/18/2004 Bilateral OPEN CHOLECYSTECTOMY N/A 09/28/2014 Surgeon: Ramon Landry MD; Location: [facility] OTHER 04/26/2005 Drainage of fluid PARATHYROIDECTOMY PERCUTANEOUS NEPHROSTOMY TUBE PLACEMENT 04/29/2005 NE PATIENT HAS A CORONARY ARTERY STENT TRANSURETHRAL PROSTATE VAPORIZATION N/A 02/12/2019 Surgeon: Williams Ashley MD; Location: [facility] OR Location VOIDING CYSTOURETHROGRAM 02/08/2004 XR KUB 02/07/2004, 03/08/2005, 03/24/2005 PAIN: Pain Location: sternum Pain rating before treatment: 4, After treatment: does not rate Pain Management: Decreased movement aides in some pain reduction and Repositioning Provided OCCUPATIONAL ROLES/HOME ENVIRONMENT: Home environment: Lives with grandson, 18/11 supervision/assistance is not available, and Single story home. Bathroom access: Yes Bathroom setup: Combo Occupation(s): Retired Function prior to admission: Household [...] to complete evaluation component. Krystian Sharma OT [facility] 2023-07-11 11:30:00 Associated Order(s): CONSULT ADULT [...] In-patient Rehab setting for safe return to OF. Challenges to Home Transition: increased risk of [...] with ambulation as follows: 5 feet using david walker and Moderate Assistance. Patient presenting with [...] 03/08/2005 CHEST EXPLORATION N/A 07/08/2023 Surgeon: Jt Alejandro MD; Location: [facility] LOCATION CHOLECYSTECTOMY 09/28/2014 COLONOSCOPY N/A 10/17/2016 Surgeon: Cheri Mcintyre MD; Location: [facility] OR Location COLONOSCOPY N/A 11/07/2020 Surgeon: Jasmyne Roper MD; Location: [facility] OR Location CORONARY ARTERY BYPASS GRAFT N/A 07/08/2023 Surgeon: Jt Alejandro MD; Location: [facility] LOCATION ENDOSCOPIC VEIN HARVEST (SHX) Left 07/08/2023 Surgeon: Jt Alejandro MD; Location: [facility] LOCATION LIVER BIOPSY 03/27/2004 NEPHRECTOMY 05/18/2004 Bilateral OPEN CHOLECYSTECTOMY N/A 09/28/2014 Surgeon: Ramon Landry MD; Location: [facility] LOC[facility] OTHER 04/26/2005 Drainage of fluid PARATHYROIDECTOMY PERCUTANEOUS NEPHROSTOMY TUBE PLACEMENT 04/29/2005 NE PATIENT HAS A CORONARY ARTERY STENT TRANSURETHRAL PROSTATE VAPORIZATION N/A 02/12/2019 Surgeon: Williams Ashley MD; Location: [facility] OR Location VOIDING CYSTOURETHROGRAM 02/08/2004 XR KUB [...] Notified and Repositioning Provided COMMUNICATION Primary Language: Macedonian Able to Verbalize needs: Yes Vision:good; no [...] Brenda Cortes PT, DPT, CSRS [facility] A physical therapy evaluation of [...] unstable and unpredictable characteristics Brenda Cortes PT [facility] 2023-07-08 10:54:23 SICU ADMIT NOTE Date of Service: 07/08/2023 10:54 Age: [age] year old HPI Cely Myers is a 68 year old male PMH [...] angina I20.0 4. Coronary artery disease involving chitina coronary artery of chitina heart without angina pectoris I25.10 5. S/P CABG (coronary artery bypass graft) Z95.1 Allergies No Known Allergies Medications: Scheduled Medications aspirin, 81 mg, DAILY atorvastatin, 40 mg, QHS tacrolimus, 5 mg, Q12H allopurinoL, 100 mg, DAILY ezetimibe, 10 mg, DAILY fluticasone propionate, 1 Puff, Q12H fluticasone propionate, 2 [place], DAILY mirtazapine, 7.5 mg, QHS mycophenolate, 500 [...] to -1. Airway: intubated Lines: Peripheral IV 07/02/23 1950 Inferior;Right;Anterior Arm Ultrasound not used (Active) Site assessment Clean;Dry;Intact 07/08/23299 Line status Saline Lock 03/12/24 0300 Line interventions None required 07/08/23299 Dressing status Clean;Dry;Intact 07/08/23299 Dressing intervention None required 07/08/23299 Reason site not rotated Anticipated discharge 07/07/232099 Peripheral IV 07/02/232044 Inferior;Proximal;Right;Ventr al Arm Ultrasound not used (Active) Site assessment Clean;Dry;Intact 07/08/23299 Line status Saline Lock 07/08/23 030 Line interventions None required 07/08/23299 Dressing status Clean;Dry;Intact 07/08/23299 Dressing intervention None required 07/08/23299 Reason site not rotated Anticipated discharge 07/07/232099 [...] Value 03/09/2005 4.80 Assessment & Plan Cely Myers is a 68 year old Black or [...] Neurology: - Pain: parasternal block pre-op, fentanyl RAILROAD DINING CAR STEWARDESS: 10 mcg bolus, lockout time 7 mins, [...] ancef x 3 doses, day 1 of 1 Hematology: - Transfuse Hgb <7 - Labs [...] see the resident's note for additional details. [facility] 2023-07-05 10:23:46 Associated Order(s): CONSULT CARDIOTHORACIC SURGERY Images from the original note were not included. Cardiothoracic Consult Date of Service: 07/05/23 Requesting Physician: Mukesh IDENTIFYING DATA Patient name: Cely Myers : 1955 Primary care physician: Abner Rivera HISTORY OF PRESENT ILLNESS We are asked to render an opinion regarding Cely Myers, 68 year old, male, who presents with [...] mg Oral QHS 40 mg at 07/04/23 2103 isosorbide mononitrate (IMDUR) 24 hr tablet 30 mg 30 mg Oral DAILY 30 mg at 07/05/23 0829 tacrolimus (PROGRAF) capsule 5 mg 5 mg Oral Q12H 5 mg at 07/04/23 2355 acetaminophen (TYLENOL) tablet 650 mg 650 mg [...] fluticasone propionate 50 mcg/actuation nasal spray 2 [place] 2 [place] Nasal DAILY 2 [place] at 07/05/23 0900 furosemide (LASIX) tablet 20 [...] mg Oral DAILY 10 mg at 07/05/23 08 minoxidiL (LONITEN) tablet 5 mg 5 mg Oral BID 5 mg at 07/05/23 08 mirtazapine (REMERON) tablet 7.5 mg 7.5 mg Oral QHS 7.5 mg at 07/04/232101 mycophenolate (CELLCEPT) capsule 500 mg 500 mg Oral Q12H 500 mg at 07/05/23 08 nitroglycerin (NITROSTAT) sublingual tablet 0.4 mg 0.4 mg Sublingual Q5MIN PRN pantoprazole (PROTONIX) EC tablet 40 mg 40 mg Oral DAILY 40 mg at 07/05/23 08 predniSONE (DELTASONE) tablet 5 mg 5 mg Oral DAILY 5 mg at 07/05/23827 sennosides-docusate sodium (SENOKOT-S) 8.6-50 mg per tablet 1 tablet 1 tablet Oral DAILY 1 tablet at 07/05/23828 sucralfate (CARAFATE) tablet 1 g 1 g Oral QID 1 g at 07/05/23827 tamsulosin (FLOMAX) capsule 0.8 mg 0.8 mg Oral QHS 0.8 mg at 07/04/232101 triamcinolone acetonide (TRIDERM) 0.1 % cream Topical [...] N/A 10/17/2016 Surgeon: Cheri Mcintyre MD; Location: [facility] OR Location COLONOSCOPY N/A 11/07/2020 Surgeon: Jasmyne Roper MD; Location: [facility] OR Location LIVER BIOPSY 03/27/2004 NEPHRECTOMY 05/18/2004 Bilateral OPEN CHOLECYSTECTOMY N/A 09/28/2014 Surgeon: Ramon Landry MD; Location: [facility] LOC[facility] OTHER 04/26/2005 Drainage of fluid PARATHYROIDECTOMY PERCUTANEOUS NEPHROSTOMY TUBE PLACEMENT 04/29/2005 NE PATIENT HAS A CORONARY ARTERY STENT TRANSURETHRAL PROSTATE VAPORIZATION N/A 02/12/2019 Surgeon: Williams Ashley MD; Location: [facility] Location VOIDING CYSTOURETHROGRAM 02/08/2004 XR KUB [...] Sister Hypertension Brother Coronary Heart Disease Brother [place] at age 45 Cancer Maternal Uncle Prostate [...] to determine recommendations. Associated attestation - Jt Alejandro MD - 07/06/2023 9:25 PM CDT Severe prox LAD disease and significant RCA disease. Should benefit from CABG. Have scheduled for Friday this week. [facility] 2023-07-03 16:39:50 Associated Order(s): CONSULT NEPHROLOGY Consultation requested by: Service: Cardiology Reason for Consultation: Immunosuppression management Date of Consultation: 07/03/2023 Time of Consultation: 4:40 PM History of Present Illness: Cely Myers is a 68 year old male with [...] 03/08/2005 CHOLECYSTECTOMY 09/28/2014 COLONOSCOPY N/A 10/17/2016 Surgeon: Chrei Mcintyre MD; Location: [facility] OR Location COLONOSCOPY N/A 11/07/2020 Surgeon: Jasmyne Roper MD; Location: [facility] OR Location LIVER BIOPSY 03/27/2004 NEPHRECTOMY 05/18/2004 Bilateral OPEN CHOLECYSTECTOMY N/A 09/28/2014 Surgeon: Ramon Landry MD; Location: [facility] OR LOCATION OTHER 04/26/2005 Drainage of fluid PARATHYROIDECTOMY PERCUTANEOUS NEPHROSTOMY TUBE PLACEMENT 04/29/2005 NE PATIENT HAS A CORONARY ARTERY STENT TRANSURETHRAL PROSTATE VAPORIZATION N/A 02/12/2019 Surgeon: Williams Ashley MD; Location: [facility] Location VOIDING CYSTOURETHROGRAM 02/08/2004 XR KUB 02/07/2004, 03/08/2005, 03/24/2005 No family history on file Patient has no known allergies. Current Facility-Administered Medications: aspirin chewable tablet 81 mg, 81 mg, Oral, DAILY, Salim, Hamza, DO, 81 mg at 07/03/23 1223 atorvastatin (LIPITOR) tablet 40 mg, 40 mg, Oral, QHS, Analy Naik MD isosorbide mononitrate (IMDUR) 24 hr tablet 30 mg, 30 mg, Oral, DAILY, Salim, Hamza, DO, 30 mg at 07/03/23 1223 [START ON 07/04/2023] NaCl 0.9% (NS) IV infusion 500 mL, 500 mL, IV Infusion, ONCE, Ry Sharpe, DO tacrolimus (PROGRAF) capsule 5 mg, 5 mg, Oral, Q12H, Capo Baker DO acetaminophen (TYLENOL) tablet 650 mg, 650 mg, Oral, [id number], Padmaja Palomares MD acetaminophen-codeine (TYLENOL #3) 300-30 mg tablet 1 tablet, 1 tablet, Oral, [id number] Andrade Michael, MD allopurinoL (ZYLOPRIM) tablet 100 mg, 100 mg, Oral, DAILY, Padmaja Palomares MD, 100 mg at 07/03/23 0922 docusate (COLACE) capsule 100 mg, 100 mg, Oral, QDAILYPRLupe, Padmaja Palomares MD ezetimibe (ZETIA) tablet 10 mg, 10 mg, Oral, DAILY, Padmaja Palomares MD, 10 mg at 07/03/23 0922 fluticasone propionate (FLOVENT HFA) 220 mcg/actuation inhaler 1 Puff, 1 Puff, Inhalation, Q12H, Padmaja Palomares MD fluticasone propionate 50 mcg/actuation nasal spray 2 [place], 2 [place], Nasal, DAILY, Padmaja Palomares MD, 2 [place] at 07/03/23 1352 furosemide (LASIX) tablet 20 mg, 20 mg, Oral, BIDPRN, Padmaja Palomares MD heparin (1,000 unit/mL, 10 mL vial) for Rebolusing, 3,000 Units, Slow IV Push, FOR REBOLUSING, Sanket Blair MD heparin 25,000 Units/250 mL (Premixed Bag) in 0.45 % NS, 0-2,750 Units/hr, IV Infusion, TITRATE, Sanket Blair MD, Last Rate: 8.5 mL/hr at 07/03/23 1219, 850 Units/hr at 07/03/23 1219 labetaloL (NORMODYNE) tablet 400 mg, 400 mg, Oral, Q12H, Padmaja Palomares MD, 400 mg at 07/03/23 0923 lisinopriL (PRINIVIL,ZESTRIL) tablet 10 mg, 10 mg, Oral, DAILY, Padmaja Palomares MD, 10 mg at 07/03/23 0923 minoxidiL (LONITEN) tablet 5 mg, 5 mg, Oral, BID, Padmaja Palomares MD, 5 mg at 07/03/23 09 mirtazapine (REMERON) tablet 7.5 mg, 7.5 mg, Oral, QHS, Padmaja Palomares MD mycophenolate (CELLCEPT) capsule 500 mg, 500 mg, Oral, Q12H, Padmaja Palomares MD, 500 mg at 07/03/23 0923 nitroglycerin (NITROSTAT) sublingual tablet 0.4 mg, 0.4 mg, Sublingual, Q5MIN PRN, Padmaja Palomares MD pantoprazole (PROTONIX) EC tablet 40 mg, 40 mg, Oral, DAILY, Padmaja Palomares MD, 40 mg at 07/03/23 09 predniSONE (DELTASONE) tablet 5 mg, 5 mg, Oral, DAILY, Padmaja Palomares MD, 5 mg at 07/03/23 09 sennosides-docusate sodium (SENOKOT-S) 8.6-50 mg per tablet 1 tablet, 1 tablet, Oral, DAILY, Padmaja Palomares MD, 1 tablet at 07/03/23 0923 sucralfate (CARAFATE) tablet 1 g, 1 g, [...] no longer Present ASSESSMENT and PLAN Cely Myers is a 68 year old male, consulted Nephrology for maintenance immunosuppression after a kidney transplant. 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 Immunosuppression - [...] cath (1 ml/kg/hour). Naomie Doty MD, FASN [facility] - Health History and Physical Notes Date/Time Note Provider Source 2024-11-12 08:17:33 [facility] Progress Note Referring Provider: No ref. provider found, PCP Admission date: 11/09/2024 Attending Physician: Sara Live MD Chief Complaint: Syncope and Weakness, Gen History of Present Illness: Cely Myers is a 69 y.o. male with PMH significant for CAD s/p CABG in 2023, ESRD s/p DDRT, prediabetes, and HTN who presented to the ED due to syncopal episode at home witnessed by friend. Patient not note any prodromal symptoms and says that he blacked out upon standing. He thinks he lost consciousness for around 1 to 2 minutes before coming to. EMS was called at which point patient was awake and responsive and brought to the emergency room. Initially attempted transfer to [facility] in [place] where patient underwent a renal transplant in 2004 but was not excepted due to capacity. Cardiology called due to concern for cardiac contribution to syncopal event. Patient denies any chest pain, palpitations, dyspnea, orthopnea, lightheadedness, or dizziness. This is the first time that he has had a syncopal episode that he remembers. He had a previous CABG in 2023. He denies any other significant cardiac history. The only symptoms he notes is that he has had reduced activity capacity as he gets more winded than normal but he attributes this to age. He denies any chest pain or pressure with exertion. He endorses good medication compliance and upon chart review he had a recent medication change for his Lasix was doubled from 20 mg twice a day to 40 mg twice a day. Last echo on file was done in June 2019 for which showed EF of 50 to 55%. Had a severely dilated left atrium. No significant aortic stenosis but did have noted tricuspid regurgitation. Subjective: No acute events overnight Review of Systems: 12-point ROS negative except as detailed in HPI Medical History: History reviewed. No pertinent past medical history. History reviewed. No pertinent surgical history. No Known Allergies No family history on file. Social History Tobacco Use Smoking status: Never Smokeless tobacco: Never Vaping Use Vaping status: Never Used Substance Use Topics Alcohol use: Yes Alcohol/week: 0.0 - 1.0 standard drinks of alcohol Drug use: Never Home Medications: Current Outpatient Medications Medication Instructions allopurinol (ZYLOPRIM) 100 mg, Every morning amLODIPine (NORVASC) 10 mg, Every morning calcium carbonate (Os-Willie) 1250 (500 Ca) MG tablet 1 tablet, Every morning Dupixent 300 mg, Subcutaneous, Every 14 days ezetimibe (ZETIA) 10 mg, Every morning fluticasone (Flonase) 50 MCG/ACT nasal spray 2 sprays, Each Nostril, Daily, Shake gently. Before first use, prime pump. After use, clean tip and replace cap. furosemide (LASIX) 40 mg, 2 times daily labetalol (NORMODYNE) 400 mg, Every 12 hours lisinopril 5 mg, Every morning magnesium oxide (MAG-OX) 250 mg, Oral, Daily mirtazapine (REMERON) 7.5 mg, Nightly mycophenolate (CELLCEPT) 500 mg, 2 times daily pravastatin (PRAVACHOL) 40 mg, Nightly predniSONE (DELTASONE) 5 mg, Every morning sucralfate (CARAFATE) 1 g, 4 times daily tacrolimus (PROGRAF) 5 mg, 2 times daily tamsulosin (FLOMAX) 0.8 mg, Nightly ticagrelor (BRILINTA) 90 mg, Oral, Every 12 hours Inpatient Medications: Scheduled Meds: allopurinol, 100 mg, Oral, q AM amLODIPine, 10 mg, Oral, q AM aspirin, 81 mg, Oral, Daily ezetimibe, 10 mg, Oral, q AM [Held by provider] furosemide, 20 mg, Oral, BID labetalol, 200 mg, Oral, q12h [Held by provider] lisinopril, 5 mg, Oral, q AM magnesium sulfate, 1 g, Intravenous, Once minoxidil, 5 mg, Oral, BID mirtazapine, 7.5 mg, Oral, Nightly mycophenolate, 500 mg, Oral, BID Oyster Shell Calcium, 500 mg, Oral, q AM potassium chloride, 20 mEq, Oral, Once pravastatin, 40 mg, Oral, Nightly predniSONE, 5 mg, Oral, q AM sodium chloride, 10 mL, Intravenous, q12h TORREY sucralfate, 1 g, Oral, 4x daily tacrolimus, 5 mg, Oral, BID tamsulosin, 0.8 mg, Oral, Nightly ticagrelor, 90 mg, Oral, q12h TORREY Continuous Infusions: PRN Meds: PRN medications: sodium chloride Objective: Physical Exam: BP (!) 122/59 | Pulse 71 | Temp 36.3 ?C (97.3 ?F) | Resp 15 | Ht 1.753 m (5' 9") | Wt 87.6 kg (193 lb 2 oz) | SpO2 98% | BMI 28.52 kg/m? I/O last 3 completed shifts: In: 0 (21.5 mL/kg) [P.O.:1880] Out: 244 (2.8 mL/kg) [Urine:244 (0.1 mL/kg/hr)] Weight: 87.6 kg General: No acute distress Neck: No carotid bruits. No JVP elevation Respiratory: Normal effort. No crackles/rales. No wheezes Cardiovascular: Rate is regular. Rhythm is regular. Normal S1 and S2. Holosystolic murmur over the left sternal border Abdomen: Non-tender. Non-distended. Lower extremities: No pitting edema Neuro: AAO x3. Speech intact. Psych: Normal affect. Normal mood. Skin: No cyanosis. No mottling. Laboratory Data: Results from last 7 days Lab Units 11/12/24 0614 11/11/24 0553 11/10/24 0441 11/09/24 2219 11/09/24 1127 SODIUM mEq/L -- 140 138 137 138 POTASSIUM mEq/L -- 3.9 3.5 3.9 4.0 CHLORIDE mEq/L -- 109* 109* 110* 108* CO2 mEq/L -- 20.5 25.0 23.8 24.8 BUN mg/dL -- 22 20 20 21 CREATININE mg/dL -- 1.99* 1.97* 2.04* 2.26* GLUCOSE mg/dL -- 84 101* 108* 108* CALCIUM mg/dL -- 10.1 9.8 9.7 9.6 MAGNESIUM mg/dL -- 1.88 1.89 -- 1.61 PHOSPHORUS mg/dL -- 2.0* 2.4 -- 2.3* WBC 10*3/uL 5.22 5.42 -- 5.21 6.04 HEMOGLOBIN g/dL 12.9 12.4 -- 11.4* 10.6* PLATELETS 10*3/uL 177 214 -- 151* 157* BNP pg/mL -- -- -- -- 446* TACROLIMUS LVL ng/mL -- 6.0 7.1 -- -- Transthoracic echo (TTE) complete Result Date: 11/10/2024 Intravenous contrast (Lumason) was used to enhance endocardial border definition. There is severe concentric hypertrophy. Systolic function is normal with an estimated ejection fraction of 66%, by biplane method of discs. There is grade 2 diastolic dysfunction increased filling pressures and reduced tissue Dopplervelocities. No LV thrombus was visualized with use of Lumason contrast. Right ventricle is normal in size. Right ventricular systolic function is normal (tricuspid annular planar systolic excursion is 2.0 cm). Left atrium is enlarged. Right atrium is grossly normal in size. Aortic valve is trileaflet. Mild calcification of aortic valve leaflets. Aortic sclerosis is present. No aortic regurgitation. Mitral valve with mild annular calcification. No mitral regurgitation. Tricuspid valve leaflets are normal. There is trace tricuspid regurgitation. Estimated right ventricular systolic pressure is 17 mmHg, assuming a right atrial pressure of 3 mmHg. Pulmonic valve appears normal in structure with trace regurgitation. Aortic root is normal for patient's age, gender, and body surface area. Inferior vena cava is normal with >50% respiratory variation in size. No pericardial effusion is seen. When compared to prior study from 07/03/23, no significant change is noted. Encounter Date: 11/09/24 XR chest 1 view Narrative EXAM: XR CHEST 1 VIEW DATE: 11/09/2024 11:50 INDICATION: SOB, hypoxia COMPARISON: None TECHNIQUE: AP chest FINDINGS: Lines and tubes: None. Lungs and Pleura: Right lung volume is slightly low. There are are ill-defined interstitial opacities in both lungs, right slightly more pronounced than left, without melody consolidation or other pulmonary or pleural based abnormality. Heart and mediastinum: Prior median sternotomy changes are demonstrated there are are multiple mediastinal vascular clips. Aortic atherosclerotic calcifications are also noted. Chest wall: Unremarkable. Bones: No acute bony abnormality is identified. IMPRESSION: Right greater than left bronchovascular crowding, with/without superimposed pulmonary edema or developing infection. Report finalized by: Reji Kim MD 11/09/2024 12:59 Assessment/Plan: Assessment & Plan Syncope and collapse -EKG with atrial enlargement, RBBB -Troponins negative, bnp elevated to 500s. No clinical evidence of fluid overload, likely secondary to renal disease and acute syncopal event. - Ordered CT head: Old lacunar infarcts present no acute stroke or bleeding - orthostatic vitals normal - TTE 11/10/24: LVEF 66%, severe concentric hypertrophy, small LV cavity, diastolic dysfunction, no valvular abnormalities Plan: - Pending cMRI report to evaluate for hypertrophic cardiomyopathy - Continue antihypertensives as below. Holding lisinopril for KATLYN which is resolving - Hold diuretics for now - Event monitor on discharge - Neurology consulted Paroxysmal A-fib (CMS/HCC) (HCC) - Reported history of Afib, though per [facility] records no documented history of LAAL - Start heparin drip -donor kidney transplant KATLYN (acute kidney injury) ([facility]) - Cr 2.26 at presentation, baseline 1.79 - Discussed with Renal Transplant. Continue home tacrolimus 5/5, MMF, and prednisone 5 mg daily - Hold diuretics for now - Follow up with [facility] Renal Transplant on discharge (has appointment in 2 weeks) Coronary artery disease involving autologous artery coronary bypass graft without angina pectoris - History of CAD s/p CABG in 2023 and PCI to the RCA - No reported symptoms concerning for acute ischemia - Continue home Brilinta Essential hypertension - BP controlled at time of admission - Will continue home amlodipine 10 mg, labetalol 200 mg twice daily, minoxidil 5 mg twice daily - Holding home lisinopril 5 mg in the setting of KATLYN on CKD, will possibly require holding additional medications depending on blood pressure trend and results of orthostatic vitals. Code Status: full Dispo: IMU Cosigned by Kenn Rendon MD at 11/17/2024 12:12 PM CDT Associated attestation - Kenn Rendon MD - 11/17/2024 12:12 PM CDT I saw and examined the patient with Cooper Augustin on 11-12-2024 and agree with plan and assessment as above. I personally reviewed the labs, diagnostic imaging and documentation and discussed the plan of care with team and patient Cely Myers is a 69 y.o. male patient with has no past medical history on file.. The patient presented to the hospital with syncope. Subjective: No acute events overnight BP 120/71 | Pulse 80 | Temp 36.4 ?C (97.5 ?F) (Oral) | Resp 19 | Ht 1.753 m (5' 9") | Wt 87.6 kg (193 lb 2 oz) | SpO2 97% | BMI 28.52 kg/m? Intake/Output Summary (Last 24 hours) at 11/12/2024 1621 Last data filed at 11/12/2024 1118 Gross per 24 hour Intake 770 ml Output 240 ml Net 530 ml General: alert, oriented, not in distress Neck;no JVD Lungs: Clear to auscultation bilateral, no rales, no wheezes Heart: S1, S2 Abdomen: soft, non tender, non distended, BS+ Extremities: no Lower extremity edema Skin: no rashes Labs: Reviewed Syncope - negative PE. Troponin negative x 2. - rhythm stable. - EKG with atrial enlargement and RBBB. Unknown if new, given no prior records here. - needs holter - cardiac MRI, Brain MRI, neurology. Will see need for EEG - hx of afib? Need to see if he had appendage ligated Hx of CAD s/p CABG in 2023 Hx of PCI to the RCA - hx of NSTEMI with 3 vessel disease from June of 2023 with CABG as noted above - hx of PCI -2024? - unclear why he is on brilinta therapy ESRD s/p renal transplant 2004 - at [facility] - recent increase in lasix to 40mg, BID. Hold diuretics. - immunosuppression per the renal team KATLYN - likely due to pre-renal. - baseline Cr around 1.8 HTN - on amlodipine 10mg, qday, labetalol 200mg, BID, minxoidil 5mg, BID and lisinopril 5mg, qday. Old lacunar infarcts Borderline dilated ascending aorta 40mm Pulmonary HTN Hx of Afib/flutter - need records from [facility] on why patient not on AC? Kenn Rendon MD This is a progress note and not an H and P [facility] 2024-11-11 07:53:20 [facility] Progress Note Referring Provider: No ref. provider found, PCP Admission date: 11/09/2024 Attending Physician: Sara Live MD Chief Complaint: Syncope and Weakness, Gen History of Present Illness: Cely Myers is a 69 y.o. male with PMH significant for CAD s/p CABG in 2023, ESRD s/p DDRT, prediabetes, and HTN who presented to the ED due to syncopal episode at home witnessed by friend. Patient not note any prodromal symptoms and says that he blacked out upon standing. He thinks he lost consciousness for around 1 to 2 minutes before coming to. EMS was called at which point patient was awake and responsive and brought to the emergency room. Initially attempted transfer to [facility] in [place] where patient underwent a renal transplant in 2004 but was not excepted due to capacity. Cardiology called due to concern for cardiac contribution to syncopal event. Patient denies any chest pain, palpitations, dyspnea, orthopnea, lightheadedness, or dizziness. This is the first time that he has had a syncopal episode that he remembers. He had a previous CABG in 2023. He denies any other significant cardiac history. The only symptoms he notes is that he has had reduced activity capacity as he gets more winded than normal but he attributes this to age. He denies any chest pain or pressure with exertion. He endorses good medication compliance and upon chart review he had a recent medication change for his Lasix was doubled from 20 mg twice a day to 40 mg twice a day. Last echo on file was done in June 2019 for which showed EF of 50 to 55%. Had a severely dilated left atrium. No significant aortic stenosis but did have noted tricuspid regurgitation. Subjective: No acute events overnight Review of Systems: 12-point ROS negative except as detailed in HPI Medical History: History reviewed. No pertinent past medical history. History reviewed. No pertinent surgical history. No Known Allergies No family history on file. Social History Tobacco Use Smoking status: Never Smokeless tobacco: Never Vaping Use Vaping status: Never Used Substance Use Topics Alcohol use: Yes Alcohol/week: 0.0 - 1.0 standard drinks of alcohol Drug use: Never Home Medications: Current Outpatient Medications Medication Instructions allopurinol (ZYLOPRIM) 100 mg, Every morning amLODIPine (NORVASC) 10 mg, Every morning calcium carbonate (Os-Willie) 1250 (500 Ca) MG tablet 1 tablet, Every morning Dupixent 300 mg, Subcutaneous, Every 14 days ezetimibe (ZETIA) 10 mg, Every morning fluticasone (Flonase) 50 MCG/ACT nasal spray 2 sprays, Each Nostril, Daily, Shake gently. Before first use, prime pump. After use, clean tip and replace cap. furosemide (LASIX) 40 mg, 2 times daily labetalol (NORMODYNE) 400 mg, Every 12 hours lisinopril 5 mg, Every morning magnesium oxide (MAG-OX) 250 mg, Oral, Daily mirtazapine (REMERON) 7.5 mg, Nightly mycophenolate (CELLCEPT) 500 mg, 2 times daily pravastatin (PRAVACHOL) 40 mg, Nightly predniSONE (DELTASONE) 5 mg, Every morning sucralfate (CARAFATE) 1 g, 4 times daily tacrolimus (PROGRAF) 5 mg, 2 times daily tamsulosin (FLOMAX) 0.8 mg, Nightly ticagrelor (BRILINTA) 90 mg, Oral, Every 12 hours PRN Inpatient Medications: Scheduled Meds: allopurinol, 100 mg, Oral, q AM amLODIPine, 10 mg, Oral, q AM ezetimibe, 10 mg, Oral, q AM [Held by provider] furosemide, 20 mg, Oral, BID labetalol, 200 mg, Oral, q12h [Held by provider] lisinopril, 5 mg, Oral, q AM minoxidil, 5 mg, Oral, BID mirtazapine, 7.5 mg, Oral, Nightly Oyster Shell Calcium, 500 mg, Oral, q AM pravastatin, 40 mg, Oral, Nightly predniSONE, 5 mg, Oral, q AM sodium chloride, 10 mL, Intravenous, q12h TORREY sucralfate, 1 g, Oral, 4x daily tacrolimus, 5 mg, Oral, BID tamsulosin, 0.8 mg, Oral, Nightly ticagrelor, 90 mg, Oral, q12h TORREY Continuous Infusions: PRN Meds: PRN medications: sodium chloride Objective: Physical Exam: BP 142/70 | Pulse 73 | Temp 37 ?C (98.6 ?F) (Oral) | Resp 17 | Ht 1.753 m (5' 9") | Wt 87.6 kg (193 lb 3.2 oz) | SpO2 99% | BMI 28.53 kg/m? I/O last 3 completed shifts: In: 610 (7 mL/kg) [P.O.:610] Out: 4 (0 mL/kg) [Urine:4 (0 mL/kg/hr)] Weight: 87.6 kg General: No acute distress Neck: No carotid bruits. No JVP elevation Respiratory: Normal effort. No crackles/rales. No wheezes Cardiovascular: Rate is regular. Rhythm is regular. Normal S1 and S2. Holosystolic murmur over the left sternal border Abdomen: Non-tender. Non-distended. Lower extremities: No pitting edema Neuro: AAO x3. Speech intact. Psych: Normal affect. Normal mood. Skin: No cyanosis. No mottling. Laboratory Data: Results from last 7 days Lab Units 11/10/24 0441 11/09/24 2219 11/09/24 1127 11/09/24 1127 11/09/24 1116 SODIUM mEq/L 138 137 -- 138 -- POTASSIUM mEq/L 3.5 3.9 -- 4.0 -- CHLORIDE mEq/L 109* 110* -- 108* -- CO2 mEq/L 25.0 23.8 -- 24.8 -- BUN mg/dL 20 20 -- 21 -- CREATININE mg/dL 1.97* 2.04* -- 2.26* -- POC GLUCOSE mg/dL -- -- -- -- 106* GLUCOSE mg/dL 101* 108* -- 108* -- CALCIUM mg/dL 9.8 9.7 < > 9.6 -- MAGNESIUM mg/dL 1.89 -- < > 1.61 -- PHOSPHORUS mg/dL 2.4 -- -- 2.3* -- WBC 10*3/uL -- 5.21 -- 6.04 -- HEMOGLOBIN g/dL -- 11.4* -- 10.6* -- PLATELETS 10*3/uL -- 151* -- 157* -- BNP pg/mL -- -- -- 446* -- TACROLIMUS LVL ng/mL 7.1 -- -- -- -- < > = values in this interval not displayed. Transthoracic echo (TTE) complete Result Date: 11/10/2024 Intravenous contrast (Lumason) was used to enhance endocardial border definition. There is severe concentric hypertrophy. Systolic function is normal with an estimated ejection fraction of 66%, by biplane method of discs. There is grade 2 diastolic dysfunction increased filling pressures and reduced tissue Dopplervelocities. No LV thrombus was visualized with use of Lumason contrast. Right ventricle is normal in size. Right ventricular systolic function is normal (tricuspid annular planar systolic excursion is 2.0 cm). Left atrium is enlarged. Right atrium is grossly normal in size. Aortic valve is trileaflet. Mild calcification of aortic valve leaflets. Aortic sclerosis is present. No aortic regurgitation. Mitral valve with mild annular calcification. No mitral regurgitation. Tricuspid valve leaflets are normal. There is trace tricuspid regurgitation. Estimated right ventricular systolic pressure is 17 mmHg, assuming a right atrial pressure of 3 mmHg. Pulmonic valve appears normal in structure with trace regurgitation. Aortic root is normal for patient's age, gender, and body surface area. Inferior vena cava is normal with >50% respiratory variation in size. No pericardial effusion is seen. When compared to prior study from 07/03/23, no significant change is noted. Encounter Date: 11/09/24 XR chest 1 view Narrative EXAM: XR CHEST 1 VIEW DATE: 11/09/2024 11:50 INDICATION: SOB, hypoxia COMPARISON: None TECHNIQUE: AP chest FINDINGS: Lines and tubes: None. Lungs and Pleura: Right lung volume is slightly low. There are are ill-defined interstitial opacities in both lungs, right slightly more pronounced than left, without melody consolidation or other pulmonary or pleural based abnormality. Heart and mediastinum: Prior median sternotomy changes are demonstrated there are are multiple mediastinal vascular clips. Aortic atherosclerotic calcifications are also noted. Chest wall: Unremarkable. Bones: No acute bony abnormality is identified. IMPRESSION: Right greater than left bronchovascular crowding, with/without superimposed pulmonary edema or developing infection. Report finalized by: Reji Kim MD 11/09/2024 12:59 Assessment/Plan: Assessment & Plan Syncope and collapse -EKG with atrial enlargement, RBBB -Troponins negative, bnp elevated to 500s. No clinical evidence of fluid overload, likely secondary to renal disease and acute syncopal event. - Ordered CT head: Old lacunar infarcts present no acute stroke or bleeding - orthostatic vitals normal - TTE 11/10/24: LVEF 66%, severe concentric hypertrophy, small LV cavity, diastolic dysfunction, no valvular abnormalities Plan: - Pending cMRI to evaluate for hypertrophic cardiomyopathy - Continue antihypertensives as below. Holding lisinopril for KATLYN which is resolving - Hold diuretics for now - Event monitor on discharge - Reported history of atrial fibrillation. Per review of outside records available, unclear if he had LAAL. Will discuss starting anticoagulation - Neurology consulted -donor kidney transplant KATLYN (acute kidney injury) (HCC) - Cr 2.26 at presentation, baseline 1.79 - Discussed with Renal Transplant. Continue home tacrolimus 5/5, MMF, and prednisone 5 mg daily - Hold diuretics for now - Follow up with [facility] Renal Transplant on discharge (has appointment in 2 weeks) Coronary artery disease involving autologous artery coronary bypass graft without angina pectoris - History of CAD s/p CABG in 2023 and PCI to the RCA - No reported symptoms concerning for acute ischemia - Continue home Brilinta Essential hypertension - BP controlled at time of admission - Will continue home amlodipine 10 mg, labetalol 200 mg twice daily, minoxidil 5 mg twice daily - Holding home lisinopril 5 mg in the setting of KATLYN on CKD, will possibly require holding additional medications depending on blood pressure trend and results of orthostatic vitals. Code Status: full Dispo: IMU Cosigned by Kenn Rendon MD at 11/17/2024 12:11 PM CDT Associated attestation - Kenn Rendon MD - 11/17/2024 12:11 PM CDT I saw and examined the patient with Isaiah Cruz on 11-11-2024 and agree with plan and assessment as above. I personally reviewed the labs, diagnostic imaging and documentation and discussed the plan of care with team and patient Cely Myers is a 69 y.o. male patient with has no past medical history on file.. The patient presented to the hospital with syncope. Subjective: No acute events overnight BP (!) 107/58 | Pulse 71 | Temp 36.7 ?C (98 ?F) | Resp 12 | Ht 1.753 m (5' 9") | Wt 87.6 kg (193 lb 3.2 oz) | SpO2 96% | BMI 28.53 kg/m? Intake/Output Summary (Last 24 hours) at 11/11/2024 1230 Last data filed at 11/11/2024 1000 Gross per 24 hour Intake 870 ml Output 4 ml Net 866 ml General: alert, oriented, not in distress Neck;no JVD Lungs: Clear to auscultation bilateral, no rales, no wheezes Heart: S1, S2 Abdomen: soft, non tender, non distended, BS+ Extremities: no Lower extremity edema Skin: no rashes Labs: Reviewed Syncope - negative PE. Troponin negative x 2. - rhythm stable. - EKG with atrial enlargement and RBBB. Unknown if new, given no prior records here. - needs holter - cardiac MRI, Brain MRI, neurology. Will see need for EEG - hx of afib? Need to see if he had appendage ligated Hx of CAD s/p CABG in 2023 Hx of PCI to the RCA - hx of NSTEMI with 3 vessel disease from June of 2023 with CABG as noted above - hx of PCI -2024? - unclear why he is on brilinta therapy ESRD s/p renal transplant 2004 - at [facility] - recent increase in lasix to 40mg, BID. Hold diuretics. - immunosuppression per the renal team KATLYN - likely due to pre-renal. - baseline Cr around 1.8 HTN - on amlodipine 10mg, qday, labetalol 200mg, BID, minxoidil 5mg, BID and lisinopril 5mg, qday. Old lacunar infarcts Borderline dilated ascending aorta 40mm Pulmonary HTN Hx of Afib/flutter - need records from [facility] on why patient not on AC? Kenn Rendon MD [facility] 2024-11-10 02:27:39 [facility] History & Physical Referring Provider: No ref. provider found, PCP Admission date: 11/09/2024 Attending Physician: Carlos Viveros MD Chief Complaint: Syncope and Weakness, Gen Subjective: History of Present Illness: No notes on file Ashvin Patel is a 69 y.o. male with PMH significant for CAD s/p CABG in 2023, ESRD s/p DDRT, prediabetes, and HTN who presented to the ED due to syncopal episode at home witnessed by friend. Patient not note any prodromal symptoms and says that he blacked out upon standing. He thinks he lost consciousness for around 1 to 2 minutes before coming to. EMS was called at which point patient was awake and responsive and brought to the emergency room. Initially attempted transfer to [facility] in [place] where patient underwent a renal transplant in 2004 but was not excepted due to capacity. Cardiology called due to concern for cardiac contribution to syncopal event. Patient denies any chest pain, palpitations, dyspnea, orthopnea, lightheadedness, or dizziness. This is the first time that he has had a syncopal episode that he remembers. He had a previous CABG in 2023. He denies any other significant cardiac history. The only symptoms he notes is that he has had reduced activity capacity as he gets more winded than normal but he attributes this to age. He denies any chest pain or pressure with exertion. He endorses good medication compliance and upon chart review he had a recent medication change for his Lasix was doubled from 20 mg twice a day to 40 mg twice a day. Last echo on file was done in June 2019 for which showed EF of 50 to 55%. Had a severely dilated left atrium. No significant aortic stenosis but did have noted tricuspid regurgitation. Review of Systems: 12-point ROS negative except as detailed in HPI Medical History: History reviewed. No pertinent past medical history. History reviewed. No pertinent surgical history. No Known Allergies No family history on file. Home Medications: Current Outpatient Medications Medication Instructions allopurinol (ZYLOPRIM) 100 mg, Every morning amLODIPine (NORVASC) 10 mg, Every morning calcium carbonate (Os-Willie) 1250 (500 Ca) MG tablet 1 tablet, Every morning Dupixent 300 mg, Subcutaneous, Every 14 days ezetimibe (ZETIA) 10 mg, Every morning fluticasone (Flonase) 50 MCG/ACT nasal spray 2 sprays, Each Nostril, Daily, Shake gently. Before first use, prime pump. After use, clean tip and replace cap. furosemide (LASIX) 40 mg, 2 times daily labetalol (NORMODYNE) 400 mg, Every 12 hours lisinopril 5 mg, Every morning magnesium oxide (MAG-OX) 250 mg, Oral, Daily mirtazapine (REMERON) 7.5 mg, Nightly mycophenolate (CELLCEPT) 500 mg, 2 times daily pravastatin (PRAVACHOL) 40 mg, Nightly predniSONE (DELTASONE) 5 mg, Every morning sucralfate (CARAFATE) 1 g, 4 times daily tacrolimus (PROGRAF) 5 mg, 2 times daily tamsulosin (FLOMAX) 0.8 mg, Nightly ticagrelor (BRILINTA) 90 mg, Oral, Every 12 hours PRN Inpatient Medications: Scheduled Meds: allopurinol, 100 mg, Oral, q AM amLODIPine, 10 mg, Oral, q AM calcium carbonate, 1,250 mg, Oral, q AM ezetimibe, 10 mg, Oral, q AM furosemide, 40 mg, Oral, BID labetalol, 400 mg, Oral, q12h [Held by provider] lisinopril, 5 mg, Oral, q AM mirtazapine, 7.5 mg, Oral, Nightly pravastatin, 40 mg, Oral, Nightly predniSONE, 5 mg, Oral, q AM sodium chloride, 10 mL, Intravenous, q12h TORREY sucralfate, 1 g, Oral, 4x daily tacrolimus, 5 mg, Oral, BID tamsulosin, 0.8 mg, Oral, Nightly ticagrelor, 90 mg, Oral, q12h TORREY Continuous Infusions: PRN Meds: PRN medications: sodium chloride Objective: Physical Exam: BP (!) 128/58 | Pulse 68 | Temp 36.9 ?C (98.4 ?F) | Resp 18 | Ht 1.753 m (5' 9") | Wt 90.7 kg (200 lb) | SpO2 95% | BMI 29.53 kg/m? I/O last 3 completed shifts: In: 50 (0.6 mL/kg) [IV Piggyback:50] Out: - (0 mL/kg) Weight: 90.7 kg General: No acute distress Neck: No carotid bruits. No JVP elevation Respiratory: Normal effort. No crackles/rales. No wheezes Cardiovascular: Rate is regular. Rhythm is regular. Normal S1 and S2. Holosystolic murmur over the left sternal border Abdomen: Non-tender. Non-distended. Lower extremities: No pitting edema Neuro: AAO x3. Speech intact. Psych: Normal affect. Normal mood. Skin: No cyanosis. No mottling. Laboratory Data: Results from last 7 days Lab Units 11/09/24 2219 11/09/24 1127 11/09/24 1127 11/09/24 1116 SODIUM mEq/L 137 -- 138 -- POTASSIUM mEq/L 3.9 -- 4.0 -- CHLORIDE mEq/L 110* -- 108* -- CO2 mEq/L 23.8 -- 24.8 -- BUN mg/dL 20 -- 21 -- CREATININE mg/dL 2.04* -- 2.26* -- POC GLUCOSE mg/dL -- -- -- 106* GLUCOSE mg/dL 108* -- 108* -- CALCIUM mg/dL 9.7 < > 9.6 -- MAGNESIUM mg/dL -- -- 1.61 -- PHOSPHORUS mg/dL -- -- 2.3* -- WBC 10*3/uL 5.21 -- 6.04 -- HEMOGLOBIN g/dL 11.4* -- 10.6* -- PLATELETS 10*3/uL 151* -- 157* -- BNP pg/mL -- -- 446* -- < > = values in this interval not displayed. No echocardiogram results found for the past 14 days Encounter Date: 11/09/24 XR chest 1 view Narrative EXAM: XR CHEST 1 VIEW DATE: 11/09/2024 11:50 INDICATION: SOB, hypoxia COMPARISON: None TECHNIQUE: AP chest FINDINGS: Lines and tubes: None. Lungs and Pleura: Right lung volume is slightly low. There are are ill-defined interstitial opacities in both lungs, right slightly more pronounced than left, without melody consolidation or other pulmonary or pleural based abnormality. Heart and mediastinum: Prior median sternotomy changes are demonstrated there are are multiple mediastinal vascular clips. Aortic atherosclerotic calcifications are also noted. Chest wall: Unremarkable. Bones: No acute bony abnormality is identified. IMPRESSION: Right greater than left bronchovascular crowding, with/without superimposed pulmonary edema or developing infection. Report finalized by: Reji Kim MD 11/09/2024 12:59 Assessment/Plan: Assessment & Plan Syncope and collapse At this time, lower suspicion for cardiac cause of syncopal event. Given recent increase in his diuretic and elevated creatinine from documented baseline, dehydration and orthostasis seem more likely. He did have a mild holosystolic murmur over the left sternal border. Bedside ultrasound patient appeared to have thickened aortic leaflets as well as a known history of tricuspid regurgitation. Warrants an updated echo to evaluate for valvular pathology. Plan: -EKG showed sinus rhythm with changes consistent with left atrial enlargement -Troponins negative, bnp elevated to 500s. No clinical evidence of fluid overload, likely secondary to renal disease and acute syncopal event. - Ordered CT head: Old lacunar infarcts present no acute stroke or bleeding - Will get orthostatic vitals - Complete TTE to evaluate for valvular pathology and LV function -donor kidney transplant KATLYN (acute kidney injury) (HCC) -Cr 2.26 at presentation, baseline 1.79 -Will decrease Lasix from 40 mgto 20 mg twice daily which was previous dose -Daily BMP to monitor trend, suspect secondary to dehydration -Continue home tacrolimus 5 g twice daily and prednisone 5 mg daily, holding MMF -Tacro level ordered Coronary artery disease involving autologous artery coronary bypass graft without angina pectoris - No reported symptoms concerning for acute ischemia -Continue home Brilinta Essential hypertension - BP controlled at time of admission - Will continue home amlodipine 10 mg, labetalol 200 mg twice daily, minoxidil 5 mg twice daily - Holding home lisinopril 5 mg in the setting of KATLYN on CKD, will possibly require holding additional medications depending on blood pressure trend and results of orthostatic vitals. Code Status: full Patient staffed with attending physician, Cooper Augustin MD Cardiovascular Disease Fellow, PGY-4 [facility] Cosigned by Sara Live MD at 11/10/2024 12:57 PM CDT Associated attestation - Sara Live MD - 11/10/2024 12:57 PM CDT Advanced Heart Failure and Interventional Cardiology Attending Attestation This note is serves as an addendum. I have seen and examined the patient admitted by the overnight fellow Dr. Augustin during am rounds on 11/10/2024 Please see his/her note for additional details. I have reviewed all the clinical information, lab investigations and imaging data. I agree with the above examination findings, assessment, and plan. Plan was formulated under my direct supervision Active medical conditions, plan and recommendations were discussed in length with the patient. All the questions were answered. Patient Active Problem List Diagnosis Syncope and collapse Coronary artery disease involving autologous artery coronary bypass graft without angina pectoris Essential hypertension -donor kidney transplant KATLYN (acute kidney injury) ([facility]) TTE reviewed Volume depleted Small LV cavity Hold diuretics for now BP control Hold ZHEN KATLYN resolving Total face to face time 75 minutes, with > 50% spent counseling regarding diagnosis, risk and benefits of various treatment plans and expected outcomes and coordinating care. Please excuse any typographical errors, documentation prepared using electronic dictation software and may contain unintended word substitutions. Kimberlyn Huff 2024-08-03 16:00:00 New Medication/Lab Result Vitamin D deficiency - Recent Vit D level 23 [goal 25 - 80] - ergocalciferol, vitamin d2, 1,250 mcg (50,000 unit) capsule; Take 1 capsule by mouth weekly. Dispense: 26 capsule; Refill: 1 - calcium carbonate (OYSTER SHELL CALCIUM 500) 500 mg calcium (1,250 mg) tablet; Take 1 tablet by mouth in the morning. Dispense: 90 tablet; Refill: 1 Abner Rivera MD, MPH [employer] Information Assurance Specialist, Department of Family Medicine [facility] 08/04/2024 11:58 AM Future Appointments In 2 weeks Ashwin Weir MD [facility] In 2 months Lab, Meng - Hans [facility] [place] [facility] In 2 months Transplant, Kidney Medicine [facility], [facility] In 3 months Tomeka Hoyos MD [facility] Cardiology, [facility] In 6 months Abner Rivera MD [facility] 2023-07-04 16:00:55 Cardiac Cath Pre-Procedure Sedation Evaluation [...] Case discussed with Dr. Mukesh Cartagena Pager #[phone] Associated attestation - Venita Mayorga MD - 07/07/2023 3:51 PM CDT Agree IM-CARDIOVASCULAR DISEASE [facility] 2023-07-02 21:15:30 MCAWHITE Team Admit H&P Date of Service: 07/02/2023 21:37 Date of Service: 07/02/2023 CHIEF COMPLAINT: Chest Pain HISTORY OF PRESENT ILLNESS Cely Myers is a 68 year old male with [...] MOUTH FOUR TIMES A DAY 03/17/23 Nicolle Phillips FNP valGANciclovir 450 mg tablet Take 1 [...] each nostril in the morning. 01/19/23 Nicolle Phillips FNP allopurinoL 100 mg tablet Take 1 [...] skin every 2 (two) weeks. 12/23/22 Kurtis Chase PA-C triamcinolone acetonide 0.1 % cream Apply to area(s) 2 (two) times daily as needed for Dermatitis/Rash. 12/23/22 Kurtis Chase PA-C minoxidiL 10 mg tablet TAKE 0.5 [...] area(s) 2 (two) times daily. 07/23/22 Kurtis Chase PA-C TAMSULOSIN 0.4 mg 24 hr capsule [...] daily. Only to itchy areas 03/06/22 Kurtis Chase PA-C aspirin 325 mg tablet Take 1 Tab by mouth daily. 12/19/09 Scarlet Crooks MD No Known Allergies Past surgical history: Past Surgical History: Procedure Laterality Date ARTERIOVENOUS FISTULA CREATION left upper extremity BIOPSY OF KIDNEY,PERCUTANEOUS 03/18/2005, 03/22/2005 CADAVERIC KIDNEY TRANSPLANT RECIPIENT Bilateral 03/08/2005 CHOLECYSTECTOMY 09/28/2014 COLONOSCOPY N/A 10/17/2016 Surgeon: Cheri Mcintyre MD; Location: [facility] OR Location COLONOSCOPY N/A 11/07/2020 Surgeon: Jasmyne Roper MD; Location: [facility] OR Location LIVER BIOPSY 03/27/2004 NEPHRECTOMY 05/18/2004 Bilateral OPEN CHOLECYSTECTOMY N/A 09/28/2014 Surgeon: Ramon Landry MD; Location: [facility]ATION OTHER 04/26/2005 Drainage of fluid PARATHYROIDECTOMY PERCUTANEOUS NEPHROSTOMY TUBE PLACEMENT 04/29/2005 NE PATIENT HAS A CORONARY ARTERY STENT TRANSURETHRAL PROSTATE VAPORIZATION N/A 02/12/2019 Surgeon: Williams Ashley MD; Location: [facility] OR Location VOIDING CYSTOURETHROGRAM 02/08/2004 XR KUB [...] Sister Hypertension Brother Coronary Heart Disease Brother OK at age 45 Cancer Maternal Uncle Prostate [...] 81 01/17/2014 95 Coagulation Panel: Recent Labs 07/02/232048 PTINR 1.0 PTPAT 11.6 APTTPAT 33 ABG:There [...] Office Visit: Nephrology note reviewed ASSESSMENT/PLAN: Cely Myers is a 68 year old male admitted [...] MD Department of Internal Medicine 07/02/2023 21:37 CIPAL SOFTWARE ARCHITECT Associated attestation - Venita Mayorga MD - 07/04/2023 9:20 PM PRINCIPAL SOFTWARE ARCHITECT I personally examined the patient on the date of service as stated and agree with Dr. Palomares's resident note . I actively participated in the decision-making process. Please see the resident's note for additional details. [facility] Procedure Notes Date/Time Note Provider Source 2023-07-08 08:59:57 Procedure(s): AN CHARLINE Pre-Procedure Diagnose(s): Coronary artery disease involving chitina coronary artery of chitina heart, unspecified whether angina present Post-Procedure Diagnose(s): Coronary artery disease involving chitina coronary artery of chitina heart, unspecified whether angina present Intraoperative Transesophageal [...] interpretation. Agree with above findings AN-ANESTHESIOLOGY ANESTHESIOLOGIST [facility] 2023-07-04 15:40:07 Procedure Note Date of [...] Mayorga MD 07/04/2023 3:40 PM Cardiology Faculty CIPAL SOFTWARE ARCHITECT IM-CARDIOVASCULAR DISEASE STAFF [facility] Notes Date/Time Note Provider Source 2024-11-23 14:25:47 Attempted to contact patient about post appointment dated for tomorrow 11/23/24 needs to be changed/ rescheduled. Patient phone has calling restrictions. Jose Ponce [facility] 2024-11-23 11:37:19 11/23/24: records received and sent for scanning into chart Oli Cleveland RN [facility] 2024-11-23 09:01:42 Referral has been placed. Routing to [facility] for assistance in authorization. [facility] 2024-11-23 08:47:22 Patient is scheduled this morning at 9:[address] Hoyos for General Cardiology appointment, we are needing a new referral authorized by the insurance. Please advise. ELT Rina Corea [facility] Referral ID Status Reason Start Date Expiration Date Visits Re quested Visits Authorized [id number] 1 1 [id number] 17:15:03* AUDIT-C Score Answer Date of Assessment Author 2 11/10/2024 12:06 PM CDT April Galindo RN * * Are you deaf or do you have serious difficulty hearing? Answer Date of Assessment Author No 11/19/2024 3:04 PM CDT Christina Benites RN * Are you blind or do you have serious difficulty seeing, even when wearing glasses? Answer Date of Assessment Author No 11/19/2024 3:04 PM CDT Christina Benites RN * Do you have serious difficulty walking or climbing stairs? Answer Date of Assessment Author No 11/19/2024 3:04 PM CDT Christina Benites RN * Do you have serious difficulty dressing or bathing? Answer Date of Assessment Author No 11/19/2024 3:04 PM CDT Christina Benites RN * Because of a physical, mental, or emotional condition, do you have serious difficulty doing errandsalone such as visiting the doctor? Answer Date of Assessment Author No 11/19/2024 3:04 PM CDT Christina Benites RN * Calculated C-SSRS Risk Score (Lifetime/Recent) Answer Date of Assessment Author No Risk Indicated 11/09/2024 12:[address], RN * [place] Suicide Severity Rating Scale (Screener/Recent Self-Report) Question Answer Date of Assessment Author 1. Wish to be (Past 1 Month) No 11/09/2024 12:00 PM CDT French Negrete RN 2. Non-Specific Active Suici casimiro Thoughts (Past 1 Month) No 11/09/2024 12:00 PM CDT Debi Negrete RN 6. Suicidal Behavior (Lifetime) No 12:00 PM CDT Isis Negrete RN [id number] 17:15:03* Because of a physical, mental, or emotional condition, do you have serious difficulty concentrating, remembering, or making decisions? (5 years old or older) Answer Entry Date Author No 11/19/2024 3:04 PM CDT Christina Benites RN [id number] 17:15:03* Anitha Acosta RN - 11/19/2024 2:40 PM CDT Notified Dallin of [facility] [phone] to cancel request since pt is discharging today. * Asaf Agarwal NP - 11/19/2024 10:53 AM CDT Subjective Feeling well, no new issues. Endorses ongoing RLQ mild discomfort as opposed to pain Pending plan for transfer to [facility] Objective Last Recorded Vitals Blood pressure 137/66, pulse 70, temperature 36.4 ?C (97.6 ?F), temperature source Oral, resp. rate 18, height 1.753 m (5' 9"), weight 85 kg (187 lb 6.3 oz), SpO2 95%. Body mass index is 27.67 kg/m?. Physical Exam: Constitutional: Appearance: Normal appearance. HENT: Head: Normocephalic and atraumatic. Nose: Nose normal. Mouth/Throat: Mouth: Mucous membranes are moist. Pharynx: Oropharynx is clear. Eyes: Pupils: Pupils are equal, round, and reactive to light. Cardiovascular: Rate and Rhythm: Normal rate. Pulmonary: Effort: Pulmonary effort is normal. Abdominal: General: Abdomen is flat. There is no distension. Tenderness: There is no abdominal tenderness. Musculoskeletal: General: No swelling. Normal range of motion. Cervical back: Normal range of motion. Skin: General: Skin is warm and dry. Capillary Refill: Capillary refill takes less than 2 seconds. Neurological: General: No focal deficit present. Mental Status: He is alert and oriented to person, place, and time. Mental status is at baseline. Psychiatric: Mood and Affect: Mood normal. Behavior: Behavior normal. Assessment & PlanSyncope and collapse Coronary artery disease involving autologous artery coronary bypass graftwithout angina pectoris Essential hypertension -donor kidney transplant KATLYN (acute kidney injury) (HCC) Paroxysmal A-fib (CMS/HCC) (HCC) Cely Myers is a 69 y.o. male with PMH significant for CAD s/p CABG in 2023, ESRD s/p DDRT, prediabetes, and HTN who presented to the ED due to syncopal episode at home witnessed by friend. DDRT 2004AKI on CKD on admit. Baseline creatinine is reportedly around 1.8. He is now at baseline 1.76 11/12 Transplant ultrasound shows no renal transplant Doppler/flow abnormalities. Prominent transplant renal sinus fat and subjacent extrarenal extension with masslike appearance associated with upstream mild to moderate hydronephrosis. 11/15/24 CMV, BK, EVB not detected 11/15 MRI AP w/wo- MRI AP with significant hydroureteronephrosis in relation to previously seen mass. MRI Results and imaging discussed with Dr. Montalvo and Dr. Fragoso with transplant surgery 11/16. The fact that his sCr is almost at baseline is promising, although his hydro is quite significant. Will get further input from surgical oncology with regards to the mass. Surg onc recommending CT AP w/ and biopsy. He is on ASA/Brillinta reportedly for recent stent about 8 mo ago. On heparin gtt for afib. After discussion with primary team, decision was made to transfer patient to [facility] where his primary physicians are. Dr. Montalvo just spoke to Dr. Padmaja Powers from [facility] and he would like to transfer the patient for further care. The transfer had been initiated through the transfer center (their phone number is [phone]). Dr. Moses aware of plan and will take over transfer. 11/19 - Patient remains pending transfer to [facility] and transfer is currently pending/being denied by insurance. Patient stated that he would prefer to be discharged and follow up with his transplant team on Friday. Maintenance ImmunosuppressionPatient has a history of 2 reported previous rejection episodes years ago. Continue Home regimen: tacrolimus 5mg BID, Cellcept 500mg BID, Prednisone 5mg Daily Please order daily tacrolimus troughs while admitted. Tacro trough 6.6 today, continue tacro 5mg BID Metabolic AcidosisBicarb level this morning is 15.4 We would like to start supplementation with sodium bicarbonate 650mg BID SyncopeSuspected in the setting of over diuresis in the setting of minoxidil outpatient after extensive workup home diuretics continue to be on hold SPEP: demonstrates slight hypergammaglobulinemia but no definitive evidence of a monoclonal peak. UPEP: with a predominance of albumin. There is no definitive evidence of a paraprotein band kappa/lamda free light chains still pending Patient is okay for discharge from nephrology perspective with close outpatient monitoring. His vital signs and kidney function are stable. He is making adequate urine. Patient understands the risks of delayed follow up and verbalized understanding to be seen by his transplant team as soon as possible after discharge. Patient seen and discussed with Dr. Montalvo. Cosigned by Jatin Montalvo MD at 11/19/2024 11:32 AM CDT Associated attestation - Jatin Montalvo MD - 11/19/2024 11:32 AM CDT I personally examined the patient and reviewed the interim history, physical exam, laboratory, and imaging as detailed in the Nurse practitioner's note. The documentation reflects our collaborative assessment and plan. Creatinine today 1.9 and remains stable at baseline. Ok from renal perspective to discharge home with close outpatient follow up with [facility] transplant clinic. Per coordinator, he has an appt with [facility] transplant nephrology and surgery on at 1 PM. Discussed with primary team. Discussed above in length with patient and answered all questions. Jatin Montalvo MDTransplant Nephrology * Anitha Acosta RN - 11/19/2024 8:34 AM CDT Followed up referral status with [facility] [phone] and per Dallin that still awaiting approval from payor. * Anitha Acosta RN - 11/18/2024 3:56 PM CDT Still pending financial auth at this time per Will of [facility] [phone] * David Hays MD - 11/18/2024 9:53 AM CDT Images from the original note were not included. NEUROLOGY PROGRESS NOTE Cely Booth Louis Admission Date: 11/09/2024 Length of Stay: 9 Days Neurologic Consultation Date: 11/11/2024 Date of Service: 11/18/24 Reason for Consultation: Syncope NEUROLOGIC PROBLEM LIST: 1. Syncope. 2. Prior history of "strokes" x 2 with pontine stroke likely occurring at the end of last year (2023) and hospitalized as [facility]. 3. Cerebral microvascular ischemic disease. MEDICAL PROBLEM LIST: Strokes x 2. Last 03/2024: Not sure symptoms. Not hospitalized. First: Medical records report 2019. Didn't know it. Second one luis ([facility]). Hypertension. Hyperlipidemia. Prediabetes. Coronary artery disease. End-stage renal disease on hemodialysis. History of V. tach (07/07/2023). 13 beats at 6:42 AM. Obstructive sleep apnea not on CPAP. Pyelonephritis/complicated UTI positive for E. coli (01/01/2017). Hepatitis C carrier. History of syphilis (09/11/2016). HSV-2 sero positive. Nephrolithiasis (12/14/2017). History of sepsis with E. coli (12/31/2016). 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 Arthritis. Atopic dermatitis. SURGICAL HISTORY: CABG x 3 on July 08, 2023 at [facility] (per medical record) patient did not remember the number of vessels or the exact timeframe. Renal transplant 2004 (unknown side, medical records suggest right from [facility].). AV fistula in the left arm x many. Status post RCA PCI 2009. Open cholecystectomy. Parathyroidectomy. Liver biopsy. INTERIM: 11/13/2024: Carotid ultrasound: No hemodynamically significant disease. Subjective Currently waiting on a bed at [facility] to investigate his mass. No other focal or generalized neurologic complaints. HISTORY OF PRESENT ILLNESS: Cely Myers is a very pleasant 69-year-old, right-handed, -[place] gentleman whose past medical history is significant for, but not limited to; hypertension, hyperlipidemia, prediabetes, coronary artery disease status post coronary artery bypass graft x 3 vessels (per medical record). end-stage renal disease status post right DDRT (per medical record), obstructive sleep apnea, history of prior sepsis with E. coli, recurrent UTIs, polyclonal gammopathy, arthritis, history of nonsustained V. tach, status post open cholecystectomy, hepatitis C carrier, history of syphilis, nephrolithiasis, and history of prior pontine stroke (presumed 2023) and prior stroke at unknown location, who was sitting at home watching sports on [place] with a friend and the friend's when he had his first syncopal episode without prodrome. The patient believes he was sitting in the chair or possibly attempting to stand when he was sat back down by his friend. He believes the entire episode lasted "a few minutes". The patient denies any aura, and his friends did not report any tonic-clonic movements at the scene. He also denies any tongue biting, incontinence, or postictal confusion. He notes that when he awakened his friend insisted that he go to to the hospital (he was reluctant). He notes that his friend performed CPR on him, but did not really know how to do it. He states he was life flighted and "I was more scared than I ever was in my life". He recalls feeling lightheaded after the event, to the point where he could barely walk. He denies any previous episodes of syncope, seizure, diplopia, dysarthria, dysphagia or focal motor or sensory symptoms. PRIOR STROKES: It should be noted that the patient is a very poor historian. He reportedly had a stroke in February or March 2024. He believes he was hospitalized at [facility]. When I mention to him that his CT scan shows a chronic infarct in the luis which is a dangerous area and most often caused by small vessel disease, he remembered that they told him it was a very dangerous area when he was hospitalized and that he was very amadou. He also reports that he had a stroke prior to that many years ago. However, he does not remember any of the symptoms with his 1st or 2nd stroke. He believes with the first stroke he may have been hospitalized at [facility] in [place]. SCHEDULED MEDICATIONS: allopurinol, 100 mg, Oral, q AM amLODIPine, 10 mg, Oral, q AM aspirin, 81 mg, Oral, Daily calcium carbonate, 1,250 mg, Oral, q AM ezetimibe, 10 mg, Oral, q AM [Held by provider] furosemide, 20 mg, Oral, BID heparin, 5,000 Units, Subcutaneous, q8h labetalol, 400 mg, Oral, q12h [Held by provider] lisinopril, 5 mg, Oral, q AM magnesium oxide, 800 mg, Oral, Once [Held by provider] minoxidil, 5 mg, Oral, BID mirtazapine, 7.5 mg, Oral, Nightly mycophenolate, 500 mg, Oral, BID potassium chloride, 20 mEq, Oral, Once pravastatin, 40 mg, Oral, Nightly predniSONE, 5 mg, Oral, q AM sodium chloride, 10 mL, Intravenous, q12h TORREY sucralfate, 1 g, Oral, 4x daily tacrolimus, 5 mg, Oral, BID tamsulosin, 0.8 mg, Oral, Nightly ticagrelor, 90 mg, Oral, q12h TORREY Objective GENERAL EXAMINATION: Last Recorded Vitals Blood pressure 143/75, pulse 71, temperature 36.6 ?C (97.9 ?F), temperature source Oral, resp. rate 17, height 1.753 m (5' 9"), weight 86.9 kg (191 lb 9.3 oz), SpO2 98%. NEUROLOGIC EXAMINATION: MENTAL STATUS: Awake. Alert. Cooperative. Oriented. Poor historian. Follows all commands. No evidence of left light confusion. SPEECH: Normal. CRANIAL NERVES II-XII: Pupils are 3/3 reactive to 2/2 to light and accommodation. Visual anglin are intact to finger count. Funduscopic examination: Sharp/flat discs. EOMI. No evidence of nystagmus. Sensation equal in all distributions of the trigeminal nerve. Masseter strength normal. Facial expression symmetric. Hearing intact bilaterally finger rub. Uvula midline. Tongue midline. Shrug normal. MOTOR: No evidence of pronation or drift. Strength 5/5 in both upper and lower extremities. Tone normal. No evidence of atrophy or fasciculations. SENSORY: Grossly intact to all modalities including light touch, temperature, vibration and proprioception. CEREBELLAR: Normal. Specifically, no evidence of dyssynergia, dysmetria or dysdiadochokinesis. REFLEXES: Symmetric. Hypoactive. Specifically, (right over left), biceps 0/0, triceps 0/0, patella 0/0, Achilles 0/0. Plantar responses: Flexor bilaterally. STATION/GAIT: Deferred. ABBREVIATED LAB : Lab Results Component Value Date WBC 3.87 (L) 11/18/2024 Hgb 10.8 (L) 11/18/2024 Hct 34.4 (L) 11/18/2024 Plt Count 152 (L) 11/18/2024 Lab Results Component Value Date Creatinine Lvl 1.92 (H) 11/18/2024 BUN 14 11/18/2024 Sodium Lvl 139 11/18/2024 Potassium Lvl 4.8 (H) 11/18/2024 Chloride Lvl 113 (H) 11/18/2024 CO2 Lvl 15.8 (L) 11/18/2024 No results found for: "AST", "ALT", "ALKPHOS" Lab Results Component Value Date Calcium Lvl 10.3 11/18/2024 Magnesium 1.62 11/18/2024 Phosphorus Lvl 2.9 11/18/2024 Lab Results Component Value Date PTT 27.2 11/18/2024 Prothrombin Time (PT) 14.6 11/17/2024 INR 1.12 11/17/2024 RELEVANT NEUROIMAGING: CT BRAIN WO IV CONTRASTResult Date: 11/10/2024 EXAM: CT BRAIN WITHOUT CONTRAST DATE: 11/10/2024 0:01 INDICATION: syncope COMPARISON: None. TECHNIQUE: Axial CT images of the brain were obtained. Sagittal and coronal reformats. IV contrast: None DLP: Refer to CT protocol form FINDINGS: There is no hemorrhage or mass lesion. Age-indeterminate lacunar infarcts involving the bilateral basal ganglia and right luis. The ventricles and sulci are enlarged from chronic brain parenchymal volume loss. Periventricular white matter hypoattenuation is nonspecific but likely represents chronic microvascular ischemic changes. The skull base, calvarium, and included facial bones are unremarkable. Trace left maxillary sinus opacification. Partial opacification of the left mastoid air cells. IMPRESSION: * No acute intracranial hemorrhage or territorial infarct. * Age-indeterminate lacunar infarcts involving the bilateral basal ganglia and right luis. * Chronic parenchymal volume loss and microvascular changes. Report finalized by: Johanne Griffin MD 11/10/2024 0:34 No MRI head results found for the past 12 monthsNo spine imaging results found for the past 12 months Transthoracic echo (TTE) complete Result Date: 11/10/2024 Intravenous contrast (Lumason) was used to enhance endocardial border definition. There is severe concentric hypertrophy. Systolic function is normal with an estimated ejection fraction of 66%, by biplane method of discs. There is grade 2 diastolic dysfunction increased filling pressures and reduced tissue Dopplervelocities. No LV thrombus was visualized with use of Lumason contrast. Right ventricle is normal in size. Right ventricular systolic function is normal (tricuspid annular planar systolic excursion is 2.0 cm). Left atrium is enlarged. Right atrium is grossly normal in size. Aortic valve is trileaflet. Mild calcification of aortic valve leaflets. Aortic sclerosis is present. No aortic regurgitation. Mitral valve with mild annular calcification. No mitral regurgitation. Tricuspid valve leaflets are normal. There is trace tricuspid regurgitation. Estimated right ventricular systolic pressure is 17 mmHg, assuming a right atrial pressure of 3 mmHg. Pulmonic valve appears normal in structure with trace regurgitation. Aortic root is normal for patient's age, gender, and body surface area. Inferior vena cava is normal with >50% respiratory variation in size. No pericardial effusion is seen. When compared to prior study from 07/03/23, no significant change is noted. All relevant neuroimaging located on this EMR has either been currently or previously reviewed by me. NEUROLOGIC IMPRESSION & RECOMMENDATIONS:IMPRESSION: 1. Syncope. 2. Prior history of "strokes" x 2 with pontine stroke likely occurring at the end of last year (2023) and hospitalized as [facility]. 3. Cerebral microvascular ischemic disease. DISCUSSION:Currently waiting on a bed at [facility] to investigate his mass. No other focal or generalized neurologic complaints. RECOMMENDATION:1. No new neurologic recommendations. Discussed with team. Sections of this note may have been created using the [employer] voice-recognition transcribing system. Typographical errors and incorrect words or phrases may have been missed during proofreading. Please interpret accordingly. * Anitha Acosta RN - 11/18/2024 8:44 AM CDT placed a follow up call today to the TC # [phone] and gael Zamarripa pt is pending financial at this time. * Russel Vincent MD - 11/18/2024 8:12 AM CDT F Progress Note Date: 11/18/2024 Referring Provider: No ref. provider found, PCP Chief Complaint: Syncope and Weakness, Gen History of Present Illness: Cely Myers is a 69 y.o. male with PMH significant for CAD s/p CABG in 2023, PCI to RCA 2009, another PCI 8 months ago, ESRD s/p DDRT, prediabetes, and HTN who presented to the ED due to syncopal episode at home witnessed by friend. Patient not note any prodromal symptoms and says that he blacked out upon standing. He thinks he lost consciousness for around 1 to 2 minutes before coming to. EMS was called at which point patient was awake and responsive and brought to the emergency room. Initially attempted transfer to [facility] in [place] where patient underwent a renal transplant in 2004 but was not excepted due to capacity. Cardiology called due to concern for cardiac contribution to syncopal event. Patient denies any chest pain, palpitations, dyspnea, orthopnea, lightheadedness, or dizziness. This is the first time that he has had a syncopal episode that he remembers. He had a previous CABG in 2023. He denies any other significant cardiac history. The only symptoms he notes is that he has had reduced activity capacity as he gets more winded than normal but he attributes this to age. He denies any chest pain or pressure with exertion. He endorses good medication compliance and upon chart review he had a recent medication change for his Lasix was doubled from 20 mg twice a day to 40 mg twice a day. Last echo on file was done in June 2019 for which showed EF of 50 to 55%. Hada severely dilated left atrium. No significant aortic stenosis but did have noted tricuspid regurgitation. 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 (known mass at [facility] but now increased in size and obstructive) infringing on renal artery, causing hydroureteronephrosis to get an idea of the next steps PET/CT vs biopsy -> plan for biopsy -> consulted IR --> renal txp Dr Montalvo discussed with primary renal txp attd about transferring to [facility] for further w/up / biopsy there-> been accepted for transfer there by Dr Padmaja Powers, pending financial clearance and bed, [place] center: [phone] - however the pt is currently on triple therapy - ASA/brilinta for a recentstent (8 months ago, unknown artery, unclear if he had ACS at [facility]) and hep gtt here for Afib (which seems to be self diagnosed, when he saw a commercial on tv and realized his Sx were the same). Stopping brilinta will give still need 5 days of washout for the effect to wear off. 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 Pt also had no recorded Afib at [facility] and was not on any AC - he had 1 EKG with possible Aflutter vs sinus with PACs -->hence we DC-ed hep gtt and pt can get event monitor upon discharge home Review of Systems:All systems were reviewed and were negative unless otherwise stated above. Medications: Current Facility-Administered Medications:allopurinol (Zyloprim) tablet 100 mg, 100 mg, Oral, q AM, Cooper Augustin MD, 100 mg at 11/18/24 0810 amLODIPine (Norvasc) tablet 10 mg, 10 mg, Oral, q AM, Mariaelena Moses MD, 10 mg at 11/18/24 0810 aspirin chewable tablet 81 mg, 81 mg, Oral, Daily, Kenn Rendon MD, 81 mg at 11/18/24 0810 calcium carbonate (Os-Willie) 1250 (500 Ca) MG tablet 500 mg of elemental calcium, 1,250 mg, Oral, q AM, Sara Live MD, 500 mg of elemental calcium at 11/18/24 0810 ezetimibe (Zetia) tablet 10 mg, 10 mg, Oral, q AM, oCoper Augustin MD, 10 mg at 11/18/24 0810 [Held by provider] furosemide (Lasix) tablet 20 mg, 20 mg, Oral, BID, Cooper Augustin MD, 20 mg at 11/10/24 0904 heparin injection 5,000 Units, 5,000 Units, Subcutaneous, q8h, Mariaelena Moses MD, 5,000 Units at 11/18/24 0548 labetalol (Normodyne) tablet 400 mg, 400 mg, Oral, q12h, Mariaelena Moses MD, 400 mg at 11/18/24 0810 [Held by provider] lisinopril tablet 5 mg, 5 mg, Oral, q AM, Cooper Augustin MD magnesium sulfate in D5W IVPB 1 g, 1 g, Intravenous, Once, Gerardo Hoffman MD [Held by provider] minoxidil (Loniten) tablet 5 mg, 5 mg, Oral, BID, Cooper Augustin MD, 5 mg at 11/14/24 0832 mirtazapine (Remeron) tablet 7.5 mg, 7.5 mg, Oral, Nightly, Cooper Augustin MD, 7.5 mg at 11/17/24 2106 mycophenolate (Cellcept) capsule 500 mg, 500 mg, Oral, BID, Isaiah Cruz MD, 500 mg at 11/18/24 0810 potassium chloride CR (Klor-Con M20) ER tablet 20 mEq, 20 mEq, Oral, Once, Gerardo Hoffman MD pravastatin (Pravachol) tablet 40 mg, 40 mg, Oral, Nightly, Cooper Augustin MD, 40 mg at 11/17/24 210 predniSONE (Deltasone) tablet 5 mg, 5 mg, Oral, q AM, Cooper Augustin MD, 5 mg at 11/18/24 0810 sodium chloride (NS) 0.9 % flush 10 mL, 10 mL, Intravenous, q12h TORREY, Cooper Augustin MD, 10 mL at 11/18/24 0811 sodium chloride (NS) 0.9 % flush 10 mL, 10 mL, Intravenous, PRN, Cooper Augustin MD sucralfate (Carafate) tablet 1 g, 1 g, Oral, 4x daily, Cooper Augustin MD, 1 g at 11/18/24 0548 tacrolimus (Prograf) capsule 5 mg, 5 mg, Oral, BID, Cooper Augustin MD, 5 mg at 11/18/24 0548 tamsulosin (Flomax) 24 hr capsule 0.8 mg, 0.8 mg, Oral, Nightly, Cooper Augustin MD, 0.8 mg at 11/17/24 2105 ticagrelor (Brilinta) tablet 90 mg, 90 mg, Oral, q12h TORREY, Cooper Augustin MD, 90 mg at 11/18/24 0810 Objective: Physical Exam:BP 136/78 | Pulse 75 | Temp 36.6 ?C (97.9 ?F) (Oral) | Resp 20 | Ht 1.753 m (5' 9") | Wt 86.9 kg (191 lb 9.3 oz) | SpO2 98% | BMI 28.29 kg/m? I/O last 3 completed shifts: In: 2014. (23.2 mL/kg) [P.O.:1670; I.V.:345.5 (4 mL/kg)] Out: 2019 (23.2 mL/kg) [Urine:2019 (0.6 mL/kg/hr)] Weight: 86.9 kg General: alert, oriented, not in distress Head/mouth: oral mucosa moist, normal conjuntiva, normal eye movements Neck; supple, normal thyroid, no JVD Chest: no lesions, normal excursion Lungs: Clear to auscultation bilateral, no rales, no wheezes Heart: RHYTHM: RRR, no gallop, no rub, no murmur Abdomen: soft, non tender, non distended, BS+ Extremities: no Lower extremity edema, symmetric, normal distal pulses Skin: no rashes Laboratory Data:Results from last 7 days Lab Units 11/18/24 0543 11/17/24 0538 11/17/24 0104 11/17/24 0103 11/17/24 0102 11/16/24 1813 11/16/24 0959 11/16/24 0534 11/15/24 1214 11/15/24 0516 11/14/24 0537 11/13/24 1203 SODIUM mEq/L 139 -- -- 140 -- -- -- 142 -- 138 136 -- POTASSIUM mEq/L 4.8* -- -- 4.6* -- -- -- 4.6* -- 4.3 4.2 -- CHLORIDE mEq/L 113* -- -- 114* -- -- -- 113* -- 109* 105 -- CO2 mEq/L 15.8* -- -- 17.1* -- -- -- 17.9* -- 16.1* 19.4* -- BUN mg/dL 14 -- -- 19 -- -- -- 31* -- 47* 53* -- CREATININE mg/dL 1.92* -- -- 1.76* -- -- -- 1.97* -- 2.65* 3.26* -- GLUCOSE mg/dL 92 -- -- 87 -- -- -- 89 -- 86 97 -- CALCIUM mg/dL 10.3 -- -- 10.3 -- -- -- 10.1 -- 10.5 10.2 -- MAGNESIUM mg/dL 1.62 -- -- 1.58* -- -- -- 1.85 -- 2.14 2.04 -- PHOSPHORUS mg/dL 2.9 -- -- 2.3* -- -- -- 2.6 -- 3.2 3.2 -- PROTEIN TOTAL g/dL -- -- -- -- -- -- -- -- -- -- -- 8.4* TOTAL PROTEIN (SPE) g/dL -- -- -- -- -- -- -- -- -- -- -- 7.3 WBC 10*3/uL 3.87* -- -- -- 4.44 -- -- 4.07 -- 4.07 3.86* -- HEMOGLOBIN g/dL 10.8* -- -- -- 10.7* -- -- 10.5* -- 10.7* 11.0* -- PLATELETS 10*3/uL 152* -- -- -- 144* -- -- 156* -- 162 162 -- TACROLIMUS LVL ng/mL -- 6.6 -- -- -- -- -- 5.4 -- 6.9 8.4 -- INR -- -- 1.12 -- -- 1.12 1.20* -- 1.08 1.13 -- -- Transthoracic echo (TTE) completeResult Date: 11/10/2024 Intravenous contrast (Lumason) was used to enhance endocardial border definition. There is severe concentric hypertrophy. Systolic function is normal with an estimated ejection fraction of 66%, by biplane method of discs. There is grade 2 diastolic dysfunction increased filling pressures and reduced tissue Dopplervelocities. No LV thrombus was visualized with use of Lumason contrast. Right ventricle is normal in size. Right ventricular systolic function is normal (tricuspid annular planar systolic excursion is 2.0 cm). Left atrium is enlarged. Right atrium is grossly normal in size. Aortic valve is trileaflet. Mild calcification of aortic valve leaflets. Aortic sclerosis is present. No aortic regurgitation. Mitral valve with mild annular calcification. No mitral regurgitation. Tricuspid valve leaflets are normal. There is trace tricuspid regurgitation. Estimated right ventricular systolic pressure is 17 mmHg, assuming a right atrial pressure of 3 mmHg. Pulmonic valve appears normal in structure with trace regurgitation. Aortic root is normal for patient's age, gender, and body surface area. Inferior vena cava is normal with >50% respiratory variation in size. No pericardial effusion is seen. When compared to prior study from 07/03/23, no significant change is noted. Encounter Date: 11/09/24XR chest 1 view Narrative EXAM: XR CHEST 1 VIEW DATE: 11/09/2024 11:50 INDICATION: SOB, hypoxia COMPARISON: None TECHNIQUE: AP chest FINDINGS: Lines and tubes: None. Lungs and Pleura: Right lung volume is slightly low. There are are ill-defined interstitial opacities in both lungs, right slightly more pronounced than left, without melody consolidation or other pulmonary or pleural based abnormality. Heart and mediastinum: Prior median sternotomy changes are demonstrated thereare are multiple mediastinal vascular clips. Aortic atherosclerotic calcifications are also noted. Chest wall: Unremarkable. Bones: No acute bony abnormality is identified. IMPRESSION:Right greater than left bronchovascular crowding, with/without superimposed pulmonary edema or developing infection. Report finalized by: Reji Kim MD 11/09/2024 12:59 Assessment/Plan: Assessment & PlanSyncope and collapse -EKG with atrial enlargement, RBBB -Troponins negative, bnp elevated to 500s. No clinical evidence of fluid overload, likely secondary to renal disease and acute syncopal event. - Ordered CT head: Old lacunar infarcts present no acute stroke or bleeding - orthostatic vitals normal - TTE 11/10/24: LVEF 66%, severe concentric hypertrophy, small LV cavity, diastolic dysfunction, no valvular abnormalities - CMRI 11/13/23: findings are in favor of cardiac amyloidosis over hypertrophic cardiomyopathy. Further evaluation with technetium pyrophosphate nuclear imaging studies recommended.(LGE burden of: 10% of the left ventricle). Plan: - PYP, SPEP, UPEP ordered to rule out amyloid. - Continue antihypertensives as below. Holding lisinopril for KATLYN which is resolving - Hold diuretics for now - Event monitor on discharge - Neurology consulted Paroxysmal A-fib (CMS/HCC) (HCC)- Reported history of Afib, though per [facility] records no documented history of LAAL - Start heparin drip - Will need 30d event monitor on discharge. -donor kidney transplant KATLYN (acute kidney injury) (HCC) - Cr 2.26 at presentation, baseline 1.79 - Discussed with Renal Transplant. Continue home tacrolimus 5/5, MMF, and prednisone 5 mg daily - Hold diuretics for now - Renal US 11/12: Prominent transplant renal sinus fat and subjacent extrarenal extension with masslike appearance associated with upstream mild to moderate hydronephrosis. CT/MR is recommended for further evaluation. - Renal transplant consulted - Renal function worsening on labs. Started maintenance fluids 50ml/hr- stop - further renal mass workup will be at [facility] - Follow up with [facility] Renal Transplant on discharge (has appointment in 2 weeks) Coronary artery disease involving autologous artery coronary bypass graft without angina pectoris - History of CAD s/p CABG in 06/2023 and PCI to the RCA 2009 - No reported symptoms concerning for acute ischemia - Continue home Brilinta Essential hypertension - now with hypotension-resolved - Continue home amlodipine 10 mg, labetalol 200->400 mg twice daily - Holding home lisinopril 5 mg in the setting of KATLYN on CKD. - holding minoxidil due to continued soft bps. Code Status: No Order Mariaelena Moses MD Cardiology Staff Attestation;I have seen and examined the patient with Creative Engagement Director Dr Moses on 11/18/24. I have reviewed all the clinical information, lab investigations, radiographic and other imaging data. I agree with findings, assessment and plan as outlined. Treatment plan was formulated under my direct supervision. lectronically signed by Russel Vincent MD at 11/19/2024 6:30 AM CDT * Anitha Acosta RN - 11/17/2024 1:32 PM CDT Reported at [facility] today that after discussion with primary team, decision was made to transfer patient to [facility] where his primary physicians are. Dr. Montalvo just spoke to Dr. Padmaja Powers from [facility] and he would like to transfer the patient for further care. CM was provided with [facility] contact info. Face sheet was faxed to #[phone]. CM placed a follow up call to the TC # [phone] and was informed that pt is currently pending financial. Renal and HF team updated. Faxed 72 hrs. progress notes to #[phone] via [employer] as per ALFREDO Valverde TP coordinator's request. * David Hays MD - 11/17/2024 10:30 AM CDT Images from the original note were not included. NEUROLOGY PROGRESS NOTE Cely Myers Admission Date: 11/09/2024 Length of Stay: 8 Days Neurologic Consultation Date: 11/11/2024 Date of Service: 11/17/24 Reason for Consultation: Syncope NEUROLOGIC PROBLEM LIST: 1. Syncope. 2. Prior history of "strokes" x 2 with pontine stroke likely occurring at the end of last year (2023) and hospitalized as [facility]. 3. Cerebral microvascular ischemic disease. MEDICAL PROBLEM LIST: Strokes x 2. Last 03/2024: Not sure symptoms. Not hospitalized. First: Medical records report 2018. Didn't know it. Second one [facility] ([facility]). Hypertension. Hyperlipidemia. Prediabetes. Coronary artery disease. End-stage renal disease on hemodialysis. History of V. tach (07/07/2023). 13 beats at 6:42 AM. Obstructive sleep apnea not on CPAP. Pyelonephritis/complicated UTI positive for E. coli (01/01/2017). Hepatitis C carrier. History of syphilis (09/11/2016). HSV-2 sero positive. Nephrolithiasis (12/14/2017). History of sepsis with E. coli (12/31/2016). 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 Arthritis. Atopic dermatitis. SURGICAL HISTORY: CABG x 3 on July 08, 2023 at [facility] (per medical record) patient did not remember the number of vessels or the exact timeframe. Renal transplant 2004 (unknown side, medical records suggest right from [facility].). AV fistula in the left arm x many. Status post RCA PCI 2009. Open cholecystectomy. Parathyroidectomy. Liver biopsy. INTERIM: 11/13/2024: Carotid ultrasound: No hemodynamically significant disease. Subjective Believes he is going to be transferred to [facility] where they can work up a problem he has had in the past. HISTORY OF PRESENT ILLNESS: Cely Myers is a very pleasant 69-year-old, right-handed, -[place] gentleman whose past medical history is significant for, but not limited to; hypertension, hyperlipidemia, prediabetes, coronary artery disease status post coronary artery bypass graft x 3 vessels (per medical record). end-stage renal disease status post right DDRT (per medical record), obstructive sleep apnea, history of prior sepsis with E. coli, recurrent UTIs, polyclonal gammopathy, arthritis, history of nonsustained V. tach, status post open cholecystectomy, hepatitis C carrier, history of syphilis, nephrolithiasis, and history of prior pontine stroke (presumed 2023) and prior stroke at unknown location, who was sitting at home watching sports on [employer] with a friend and the friend's when he had his first syncopal episode without prodrome. The patient believes he was sitting in the chair or possibly attempting to stand when he was sat back down by his friend. He believes the entire episode lasted "a few minutes". The patient denies any aura, and his friends did not report any tonic-clonic movements at the scene. He also denies any tongue biting, incontinence, or postictal confusion. He notes that when he awakened his friend insisted that he go to to the hospital (he was reluctant). He notes that his friend performed CPR on him, but did not really know how to do it. He states he was life flighted and "I was more scared than I ever was in my life". He recalls feeling lightheaded after the event, to the point where he could barely walk. He denies any previous episodes of syncope, seizure, diplopia, dysarthria, dysphagia or focal motor or sensory symptoms. PRIOR STROKES: It should be noted that the patient is a very poor historian. He reportedly had a stroke in February or March 2024. He believes he was hospitalized at [place]. When I mention to him that his CT scan shows a chronic infarct in the luis which is a dangerous area and most often caused by small vessel disease, he remembered that they told him it was a very dangerous area when he was hospitalized and that he was very amadou. He also reports that he had a stroke prior to that many years ago. However, he does not remember any of the symptoms with his 1st or 2nd stroke. He believes with the first stroke he may have been hospitalized at [facility] in [place]. SCHEDULED MEDICATIONS: allopurinol, 100 mg, Oral, q AM amLODIPine, 10 mg, Oral, q AM aspirin, 81 mg, Oral, Daily calcium carbonate, 1,250 mg, Oral, q AM ezetimibe, 10 mg, Oral, q AM [Held by provider] furosemide, 20 mg, Oral, BID labetalol, 200 mg, Oral, q12h [Held by provider] lisinopril, 5 mg, Oral, q AM magnesium sulfate, 1 g, Intravenous, Once [Held by provider] minoxidil, 5 mg, Oral, BID mirtazapine, 7.5 mg, Oral, Nightly mycophenolate, 500 mg, Oral, BID potassium chloride, 20 mEq, Oral, Once pravastatin, 40 mg, Oral, Nightly predniSONE, 5 mg, Oral, q AM sodium chloride, 10 mL, Intravenous, q12h TORREY sucralfate, 1 g, Oral, 4x daily tacrolimus, 5 mg, Oral, BID tamsulosin, 0.8 mg, Oral, Nightly ticagrelor, 90 mg, Oral, q12h TORREY Objective GENERAL EXAMINATION: Last Recorded Vitals Blood pressure 152/70, pulse 74, temperature 37.1 ?C (98.7 ?F), temperature source Oral, resp. rate 21, height 1.753 m (5' 9"), weight 86.9 kg (191 lb 9.3 oz), SpO2 99%. NEUROLOGIC EXAMINATION: MENTAL STATUS: Awake. Alert. Cooperative. Oriented. Poor historian. Follows all commands. No evidence of left light confusion. SPEECH: Normal. CRANIAL NERVES II-XII: Pupils are 3/3 reactive to 2/2 to light and accommodation. Visual anglin are intact to finger count. Funduscopic examination: Sharp/flat discs. EOMI. No evidence of nystagmus. Sensation equal in all distributions of the trigeminal nerve. Masseter strength normal. Facial expression symmetric. Hearing intact bilaterally finger rub. Uvula midline. Tongue midline. Shrug normal. MOTOR: No evidence of pronation or drift. Strength 5/5 in both upper and lower extremities. Tone normal. No evidence of atrophy or fasciculations. SENSORY: Grossly intact to all modalities including light touch, temperature, vibration and proprioception. CEREBELLAR: Normal. Specifically, no evidence of dyssynergia, dysmetria or dysdiadochokinesis. REFLEXES: Symmetric. Hypoactive. Specifically, (right over left), biceps 0/0, triceps 0/0, patella 0/0, Achilles 0/0. Plantar responses: Flexor bilaterally. STATION/GAIT: Deferred. ABBREVIATED LAB : Lab Results Component Value Date WBC 4.44 11/17/2024 Hgb 10.7 (L) 11/17/2024 Hct 34.1 (L) 11/17/2024 Plt Count 144 (L) 11/17/2024 Lab Results Component Value Date Creatinine Lvl 1.76 (H) 11/17/2024 BUN 19 11/17/2024 Sodium Lvl 140 11/17/2024 Potassium Lvl 4.6 (H) 11/17/2024 Chloride Lvl 114 (H) 11/17/2024 CO2 Lvl 17.1 (L) 11/17/2024 No results found for: "AST", "ALT", "ALKPHOS" Lab Results Component Value Date Calcium Lvl 10.3 11/17/2024 Magnesium 1.58 (L) 11/17/2024 Phosphorus Lvl 2.3 (L) 11/17/2024 Lab Results Component Value Date PTT 101.5 (HH) 11/17/2024 Prothrombin Time (PT) 14.6 11/17/2024 INR 1.12 11/17/2024 RELEVANT NEUROIMAGING: CT BRAIN WO IV CONTRASTResult Date: 11/10/2024 EXAM: CT BRAIN WITHOUT CONTRAST DATE: 11/10/2024 0:01 INDICATION: syncope COMPARISON: None. TECHNIQUE: Axial CT images of the brain were obtained. Sagittal and coronal reformats. IV contrast: None DLP: Refer to CT protocol form FINDINGS: There is no hemorrhage or mass lesion. Age-indeterminate lacunar infarcts involving the bilateral basal ganglia and right luis. The ventricles and sulci are enlarged from chronic brain parenchymal volume loss. Periventricular white matter hypoattenuation is nonspecific but likely represents chronic microvascular ischemic changes. The skull base, calvarium, and included facial bones are unremarkable. Trace left maxillary sinus opacification. Partial opacification of the left mastoid air cells. IMPRESSION: * No acute intracranial hemorrhage or territorial infarct. * Age-indeterminate lacunar infarcts involving the bilateral basal ganglia and right luis. * Chronic parenchymal volume loss and microvascular changes. Report finalized by: Johanne Griffin MD 11/10/2024 0:34 No MRI head results found for the past 12 monthsNo spine imaging results found for the past 12 months Transthoracic echo (TTE) complete Result Date: 11/10/2024 Intravenous contrast (Lumason) was used to enhance endocardial border definition. There is severe concentric hypertrophy. Systolic function is normal with an estimated ejection fraction of 66%, by biplane method of discs. There is grade 2 diastolic dysfunction increased filling pressures and reduced tissue Dopplervelocities. No LV thrombus was visualized with use of Lumason contrast. Right ventricle is normal in size. Right ventricular systolic function is normal (tricuspid annular planar systolic excursion is 2.0 cm). Left atrium is enlarged. Right atrium is grossly normal in size. Aortic valve is trileaflet. Mild calcification of aortic valve leaflets. Aortic sclerosis is present. No aortic regurgitation. Mitral valve with mild annular calcification. No mitral regurgitation. Tricuspid valve leaflets are normal. There is trace tricuspid regurgitation. Estimated right ventricular systolic pressure is 17 mmHg, assuming a right atrial pressure of 3 mmHg. Pulmonic valve appears normal in structure with trace regurgitation. Aortic root is normal for patient's age, gender, and body surface area. Inferior vena cava is normal with >50% respiratory variation in size. No pericardial effusion is seen. When compared to prior study from 07/03/23, no significant change is noted. All relevant neuroimaging located on this EMR has either been currently or previously reviewed by me. NEUROLOGIC IMPRESSION & RECOMMENDATIONS:IMPRESSION: 1. Syncope. 2. Prior history of "strokes" x 2 with pontine stroke likely occurring at the end of last year (2023) and hospitalized as [facility]. 3. Cerebral microvascular ischemic disease. DISCUSSION:Believes he is going to be transferred to [facility] where they can work up a problem he has had in the past. RECOMMENDATION:1. No new neurologic recommendations. Discussed with team. Sections of this note may have been created using the [employer] voice-recognition transcribing system. Typographical errors and incorrect words or phrases may have been missed during proofreading. Please interpret accordingly. * Russel Vincent MD - 11/17/2024 8:32 AM CDT [facility] Progress Note Date: 11/17/2024 Referring Provider: No ref. provider found, PCP Chief Complaint: Syncope and Weakness, Gen History of Present Illness: Cely Myers is a 69 y.o. male with PMH significant for CAD s/p CABG in 2023, PCI to RCA 2009, another PCI 8 months ago, ESRD s/p DDRT, prediabetes, and HTN who presented to the ED due to syncopal episode at home witnessed by friend. Patient not note any prodromal symptoms and says that he blacked out upon standing. He thinks he lost consciousness for around 1 to 2 minutes before coming to. EMS was called at which point patient was awake and responsive and brought to the emergency room. Initially attempted transfer to [facility] in [place] where patient underwent a renal transplant in 2004 but was not excepted due to capacity. Cardiology called due to concern for cardiac contribution to syncopal event. Patient denies any chest pain, palpitations, dyspnea, orthopnea, lightheadedness, or dizziness. This is the first time that he has had a syncopal episode that he remembers. He had a previous CABG in 2023. He denies any other significant cardiac history. The only symptoms he notes is that he has had reduced activity capacity as he gets more winded than normal but he attributes this to age. He denies any chest pain or pressure with exertion. He endorses good medication compliance and upon chart review he had a recent medication change for his Lasix was doubled from 20 mg twice a day to 40 mg twice a day. Last echo on file was done in June 2019 for which showed EF of 50 to 55%. Hada severely dilated left atrium. No significant aortic stenosis but did have noted tricuspid regurgitation. 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 (known mass at [facility] but now increased in size and obstructive) infringing on renal artery, causing hydroureteronephrosis to get an idea of the next steps PET/CT vs biopsy -> plan for biopsy -> consulted IR --> renal txp Dr Montalvo discussed with primary renal txp attd about transferring to [facility] for further w/up / biopsy there-> been accepted for transfer there by Dr Padmaja Powers, pending financial clearance and bed, [place] center: [phone] - however the pt is currently on triple therapy - ASA/brilinta for a recentstent (8 months ago, unknown artery, unclear if he had ACS at [facility]) and hep gtt here for Afib (which seems to be self diagnosed, when he saw a commercial on tv and realized his Sx were the same). Stopping brilinta will give still need 5 days of washout for the effect to wear off. 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 Pt also had no recorded Afib at [facility] and was not on any AC - he had 1 EKG with possible Aflutter vs sinus with PACs -->hence we DC-ed hep gtt and pt can get event monitor upon discharge home Review of Systems:All systems were reviewed and were negative unless otherwise stated above. Medications: Current Facility-Administered Medications:allopurinol (Zyloprim) tablet 100 mg, 100 mg, Oral, q AM, Cooper Augustin MD, 100 mg at 11/17/24 0718 amLODIPine (Norvasc) tablet 10 mg, 10 mg, Oral, q AM, Mariaelena Moses MD, 10 mg at 11/17/24 0634 aspirin chewable tablet 81 mg, 81 mg, Oral, Daily, Kenn Rendon MD, 81 mg at 11/16/24 0818 calcium carbonate (Os-Willie) 1250 (500 Ca) MG tablet 500 mg of elemental calcium, 1,250 mg, Oral, q AM, Sara Live MD, 500 mg of elemental calcium at 11/16/24 0817 ezetimibe (Zetia) tablet 10 mg, 10 mg, Oral, q AM, Cooper Augustin MD, 10 mg at 11/17/24 0718 [Held by provider] furosemide (Lasix) tablet 20 mg, 20 mg, Oral, BID, Cooper Augustin MD, 20 mg at 11/10/24 0904 heparin 50 units/mL in sodium chloride 0.45 %, 0.1-40 Units/kg/hr, Intravenous, Continuous, Isaiah Cruz MD, Last Rate: 15.77 mL/hr at 11/17/24 0348, 9 Units/kg/hr at 11/17/24 0348 labetalol (Normodyne) tablet 200 mg, 200 mg, Oral, q12h, Mariaelena Moses MD, 200 mg at 11/16/242121 [Held by provider] lisinopril tablet 5 mg, 5 mg, Oral, q AM, Cooper Augustin MD magnesium sulfate in D5W IVPB 1 g, 1 g, Intravenous, Once, Gerardo Hoffman MD [Held by provider] minoxidil (Loniten) tablet 5 mg, 5 mg, Oral, BID, Cooper Augustin MD, 5 mg at 11/14/24 0832 mirtazapine (Remeron) tablet 7.5 mg, 7.5 mg, Oral, Nightly, Cooper Augustin MD, 7.5 mg at 11/16/242120 mycophenolate (Cellcept) capsule 500 mg, 500 mg, Oral, BID, Isaiah Cruz MD, 500 mg at 11/16/242120 potassium chloride CR (Klor-Con M20) ER tablet 20 mEq, 20 mEq, Oral, Once, Gerardo Hoffman MD pravastatin (Pravachol) tablet 40 mg, 40 mg, Oral, Nightly, Cooper Augustin MD, 40 mg at 11/16/242121 predniSONE (Deltasone) tablet 5 mg, 5 mg, Oral, q AM, Cooper Augustin MD, 5 mg at 11/17/24718 sodium chloride (NS) 0.9 % flush 10 mL, 10 mL, Intravenous, q12h TORREY, Cooper Augustin MD, 10 mL at 11/16/242126 sodium chloride (NS) 0.9 % flush 10 mL, 10 mL, Intravenous, PRN, Cooper Augustin MD sodium chloride 0.9 % infusion, 50 mL/hr, Intravenous, Continuous, PATRIC Hitchcock, Last Rate: 50 mL/hr at 11/16/241949, 50 mL/hr at 11/16/241949 sucralfate (Carafate) tablet 1 g, 1 g, Oral, 4x daily, Cooper Augustin MD, 1 g at 11/17/24 0541 tacrolimus (Prograf) capsule 5 mg, 5 mg, Oral, BID, Cooper Augustin MD, 5 mg at 11/17/24 0541 tamsulosin (Flomax) 24 hr capsule 0.8 mg, 0.8 mg, Oral, Nightly, Cooper Augustin MD, 0.8 mg at 11/16/242120 ticagrelor (Brilinta) tablet 90 mg, 90 mg, Oral, q12h TORREY, Cooper Augustin MD, 90 mg at 11/16/242121 Objective: Physical Exam:BP (!) 173/82 | Pulse 73 | Temp 36.1 ?C (97 ?F) (Temporal) | Resp 16 | Ht 1.753 m (5' 9") | Wt 86.9 kg (191 lb 9.3 oz) | SpO2 (!) 71% | BMI 28.29 kg/m? I/O last 3 completed shifts: In: 2571.1 (29.6 mL/kg) [P.O.:980; I.V.:1591.1 (18.3 mL/kg)] Out: 3602 (41.5 mL/kg) [Urine:3600 (1.2 mL/kg/hr); Stool:2] Weight: 86.9 kg General: alert, oriented, not in distress Head/mouth: oral mucosa moist, normal conjuntiva, normal eye movements Neck; supple, normal thyroid, no JVD Chest: no lesions, normal excursion Lungs: Clear to auscultation bilateral, no rales, no wheezes Heart: RHYTHM: RRR, no gallop, no rub, no murmur Abdomen: soft, non tender, non distended, BS+ Extremities: no Lower extremity edema, symmetric, normal distal pulses Skin: no rashes Laboratory Data:Results from last 7 days Lab Units 11/17/24 0104 11/17/24 0103 11/17/24 0102 11/16/24 1813 11/16/24 0959 11/16/24 0534 11/15/24 1214 11/15/24 0516 11/14/24 0537 11/13/24 1203 11/13/24 0547 SODIUM mEq/L -- 140 -- -- -- 142 -- 138 136 -- 136 POTASSIUM mEq/L -- 4.6* -- -- -- 4.6* -- 4.3 4.2 -- 4.1 CHLORIDE mEq/L -- 114* -- -- -- 113* -- 109* 105 -- 107 CO2 mEq/L -- 17.1* -- -- -- 17.9* -- 16.1* 19.4* -- 17.8* BUN mg/dL -- 19 -- -- -- 31* -- 47* 53* -- 37* CREATININE mg/dL -- 1.76* -- -- -- 1.97* -- 2.65* 3.26* -- 2.90* GLUCOSE mg/dL -- 87 -- -- -- 89 -- 86 97 -- 93 CALCIUM mg/dL -- 10.3 -- -- -- 10.1 -- 10.5 10.2 -- 10.5 MAGNESIUM mg/dL -- 1.58* -- -- -- 1.85 -- 2.14 2.04 -- 1.96 PHOSPHORUS mg/dL -- 2.3* -- -- -- 2.6 -- 3.2 3.2 -- 3.0 PROTEIN TOTAL g/dL -- -- -- -- -- -- -- -- -- 8.4* -- WBC 10*3/uL -- -- 4.44 -- -- 4.07 -- 4.07 3.86* -- 4.78 HEMOGLOBIN g/dL -- -- 10.7* -- -- 10.5* -- 10.7* 11.0* -- 11.5* PLATELETS 10*3/uL -- -- 144* -- -- 156* -- 162 162 -- 172 TACROLIMUS LVL ng/mL -- -- -- -- -- 5.4 -- 6.9 8.4 -- 7.5 INR 1.12 -- -- 1.12 1.20* -- 1.08 1.13 -- -- 1.09 Transthoracic echo (TTE) completeResult Date: 11/10/2024 Intravenous contrast (Lumason) was used to enhance endocardial border definition. There is severe concentric hypertrophy. Systolic function is normal with an estimated ejection fraction of 66%, by biplane method of discs. There is grade 2 diastolic dysfunction increased filling pressures and reduced tissue Dopplervelocities. No LV thrombus was visualized with use of Lumason contrast. Right ventricle is normal in size. Right ventricular systolic function is normal (tricuspid annular planar systolic excursion is 2.0 cm). Left atrium is enlarged. Right atrium is grossly normal in size. Aortic valve is trileaflet. Mild calcification of aortic valve leaflets. Aortic sclerosis is present. No aortic regurgitation. Mitral valve with mild annular calcification. No mitral regurgitation. Tricuspid valve leaflets are normal. There is trace tricuspid regurgitation. Estimated right ventricular systolic pressure is 17 mmHg, assuming a right atrial pressure of 3 mmHg. Pulmonic valve appears normal in structure with trace regurgitation. Aortic root is normal for patient's age, gender, and body surface area. Inferior vena cava is normal with >50% respiratory variation in size. No pericardial effusion is seen. When compared to prior study from 07/03/23, no significant change is noted. Encounter Date: 11/09/24XR chest 1 view Narrative EXAM: XR CHEST 1 VIEW DATE: 11/09/2024 11:50 INDICATION: SOB, hypoxia COMPARISON: None TECHNIQUE: AP chest FINDINGS: Lines and tubes: None. Lungs and Pleura: Right lung volume is slightly low. There are are ill-defined interstitial opacities in both lungs, right slightly more pronounced than left, without melody consolidation or other pulmonary or pleural based abnormality. Heart and mediastinum: Prior median sternotomy changes are demonstrated thereare are multiple mediastinal vascular clips. Aortic atherosclerotic calcifications are also noted. Chest wall: Unremarkable. Bones: No acute bony abnormality is identified. IMPRESSION:Right greater than left bronchovascular crowding, with/without superimposed pulmonary edema or developing infection. Report finalized by: Reji Kim MD 11/09/2024 12:59 Assessment/Plan: Assessment & PlanSyncope and collapse -EKG with atrial enlargement, RBBB -Troponins negative, bnp elevated to 500s. No clinical evidence of fluid overload, likely secondary to renal disease and acute syncopal event. - Ordered CT head: Old lacunar infarcts present no acute stroke or bleeding - orthostatic vitals normal - TTE 11/10/24: LVEF 66%, severe concentric hypertrophy, small LV cavity, diastolic dysfunction, no valvular abnormalities - CMRI 11/13/23: findings are in favor of cardiac amyloidosis over hypertrophic cardiomyopathy. Further evaluation with technetium pyrophosphate nuclear imaging studies recommended.(LGE burden of: 10% of the left ventricle). Plan: - PYP, SPEP, UPEP ordered to rule out amyloid. - Continue antihypertensives as below. Holding lisinopril for KATLYN which is resolving - Hold diuretics for now - Event monitor on discharge - Neurology consulted Paroxysmal A-fib (CMS/HCC) ([facility])- Reported history of Afib, though per [facility] records no documented history of LAAL - Start heparin drip - Will need 30d event monitor on discharge. -donor kidney transplant KATLYN (acute kidney injury) ([facility]) - Cr 2.26 at presentation, baseline 1.79 - Discussed with Renal Transplant. Continue home tacrolimus 5/5, MMF, and prednisone 5 mg daily - Hold diuretics for now - Renal US 11/12: Prominent transplant renal sinus fat and subjacent extrarenal extension with masslike appearance associated with upstream mild to moderate hydronephrosis. CT/MR is recommended for further evaluation. - Renal transplant consulted - Renal function worsening on labs. Started maintenance fluids 50ml/hr- stop - further renal mass workup will be at [facility] - Follow up with [facility] Renal Transplant on discharge (has appointment in 2 weeks) Coronary artery disease involving autologous artery coronary bypass graft without angina pectoris - History of CAD s/p CABG in 06/2023 and PCI to the RCA 2009 - No reported symptoms concerning for acute ischemia - Continue home Brilinta Essential hypertension - now with hypotension-resolved - Continue home amlodipine 10 mg, labetalol 200->400 mg twice daily - Holding home lisinopril 5 mg in the setting of KATLYN on CKD. - holding minoxidil due to continued soft bps. Code Status: No Order Mariaelena Moses MD Cardiology Staff Attestation;I have seen and examined the patient with Creative Engagement Director Dr Moses on 11/17/24. I have reviewed all the clinical information, lab investigations, radiographic and other imaging data. I agree with findings, assessment and plan as outlined. Treatment plan was formulated under my direct supervision. lectronically signed by Russel Vincent MD at 11/18/2024 6:14 AM CDT * Della Jennings NP - 11/17/2024 7:26 AM CDT Subjective Feeling well, no new issues. Pending plan for extrarenal soft tissue mass Objective Last Recorded Vitals Blood pressure (!) 173/82, pulse 73, temperature 36.1 ?C (97 ?F), temperature source Temporal, resp. rate 16, height 1.753 m (5' 9"), weight 86.9 kg (191 lb 9.3 oz), SpO2 (!) 71%. Body mass index is 28.29 kg/m?. Physical Exam: Constitutional: Appearance: Normal appearance. HENT: Head: Normocephalic and atraumatic. Nose: Nose normal. Mouth/Throat: Mouth: Mucous membranes are moist. Pharynx: Oropharynx is clear. Eyes: Pupils: Pupils are equal, round, and reactive to light. Cardiovascular: Rate and Rhythm: Normal rate. Pulmonary: Effort: Pulmonary effort is normal. Abdominal: General: Abdomen is flat. There is no distension. Tenderness: There is no abdominal tenderness. Musculoskeletal: General: No swelling. Normal range of motion. Cervical back: Normal range of motion. Skin: General: Skin is warm and dry. Capillary Refill: Capillary refill takes less than 2 seconds. Neurological: General: No focal deficit present. Mental Status: He is alert and oriented to person, place, and time. Mental status is at baseline. Psychiatric: Mood and Affect: Mood normal. Behavior: Behavior normal. Assessment & PlanSyncope and collapse Coronary artery disease involving autologous artery coronary bypass graftwithout angina pectoris Essential hypertension -donor kidney transplant KATLYN (acute kidney injury) (HCC) Paroxysmal A-fib (CMS/HCC) (HCC) Cely Myers is a 69 y.o. male with PMH significant for CAD s/p CABG in 2023, ESRD s/p DDRT, prediabetes, and HTN who presented to the ED due to syncopal episode at home witnessed by friend. DDRT 2004AKI on CKD on admit. Baseline creatinine is reportedly around 1.8. He is now at baseline 1.76 11/12 Transplant ultrasound shows no renal transplant Doppler/flow abnormalities. Prominent transplant renal sinus fat and subjacent extrarenal extension with masslike appearance associated with upstream mild to moderate hydronephrosis. 11/15 MRI AP w/wo- MRI AP with significant hydroureteronephrosis in relation to previously seen mass. MRI Results and imaging discussed with Dr. Montalvo and Dr. Fragoso with transplant surgery 11/16. The fact that his sCr is almost at baseline is promising, although his hydro is quite significant. Will get further input from surgical oncology with regards to the mass. Surg onc recommending CT AP w/ and biopsy. He is on ASA/Brillinta reportedly for recent stent about 8 mo ago. On heparin gtt for afib. After discussion with primary team, decision was made to transfer patient to [facility] where his primary physicians are. Dr. Montalvo just spoke to Dr. Padmaja Powers from [facility] and he would like to transfer the patient for further care. The transfer has been initiated through the transfer center (their phone number is [phone]). Dr. Moses aware of plan and will take over transfer. 11/15/24 CMV, BK, EVB not detected Maintenance ImmunosuppressionPatient has a history of 2 reported previous rejection episodes years ago. Continue Home regimen: tacrolimus 5mg BID, Cellcept 500mg BID, Prednisone 5mg Daily Please order daily tacrolimus troughs while admitted. Tacro trough 6.6 today, continue tacro 5mg BID SyncopeSuspected in the setting of over diuresis in the setting of minoxidil outpatient after extensive workup home diuretics continue to be on hold SPEP: demonstrates slight hypergammaglobulinemia but no definitive evidence of a monoclonal peak. UPEP: with a predominance of albumin. There is no definitive evidence of a paraprotein band kappa/lamda free light chains still pending Patient discussed with Dr. Montalvo. Della Jennings APRN, [facility] Transplant Nephrology and Surgery Cosigned by Jatin Montalvo MD at 11/17/2024 2:38 PM CDT Associated attestation - Katia, Jatin Etienne MD - 11/17/2024 2:38 PM CDT I personally examined the patient and reviewed the interim history, physical exam, laboratory, and imaging as detailed in the Nurse practitioner's note. The documentation reflects our collaborative assessment and plan. Jatin Montalvo MDTransplant Nephrology * David Hays MD - 11/16/2024 3:42 PM CDT Images from the original note were not included. NEUROLOGY PROGRESS NOTE Cely Booth Louis Admission Date: 11/09/2024 Length of Stay: 7 Days Neurologic Consultation Date: 11/11/2024 Date of Service: 11/16/24 Reason for Consultation: Syncope NEUROLOGIC PROBLEM LIST: 1. Syncope. 2. Prior history of "strokes" x 2 with pontine stroke likely occurring at the end of last year (2023) and hospitalized as [facility]. 3. Cerebral microvascular ischemic disease. MEDICAL PROBLEM LIST: Strokes x 2. Last 03/2024: Not sure symptoms. Not hospitalized. First: Medical records report 2019. Didn't know it. Second one luis ([facility]). Hypertension. Hyperlipidemia. Prediabetes. Coronary artery disease. End-stage renal disease on hemodialysis. History of V. tach (07/07/2023). 13 beats at 6:42 AM. Obstructive sleep apnea not on CPAP. Pyelonephritis/complicated UTI positive for E. coli (01/01/2017). Hepatitis C carrier. History of syphilis (09/11/2016). HSV-2 sero positive. Nephrolithiasis (12/14/2017). History of sepsis with E. coli (12/31/2016). 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 Arthritis. Atopic dermatitis. SURGICAL HISTORY: CABG x 3 on July 08, 2023 at [facility] (per medical record) patient did not remember the number of vessels or the exact timeframe. Renal transplant 2004 (unknown side, medical records suggest right from [facility].). AV fistula in the left arm x many. Status post RCA PCI 2009. Open cholecystectomy. Parathyroidectomy. Liver biopsy. INTERIM: 11/13/2024: Carotid ultrasound: No hemodynamically significant disease. Subjective Patient believes he was going to be discharged, but they have now found a new "lesion" on his bladder, which has to be investigated. HISTORY OF PRESENT ILLNESS: Cely Myers is a very pleasant 69-year-old, right-handed, -[place] gentleman whose past medical history is significant for, but not limited to; hypertension, hyperlipidemia, prediabetes, coronary artery disease status post coronary artery bypass graft x 3 vessels (per medical record). end-stage renal disease status post right DDRT (per medical record), obstructive sleep apnea, history of prior sepsis with E. coli, recurrent UTIs, polyclonal gammopathy, arthritis, history of nonsustained V. tach, status post open cholecystectomy, hepatitis C carrier, history of syphilis, nephrolithiasis, and history of prior pontine stroke (presumed 2023) and prior stroke at unknown location, who was sitting at home watching sports on [employer] with a friend and the friend's when he had his first syncopal episode without prodrome. The patient believes he was sitting in the chair or possibly attempting to stand when he was sat back down by his friend. He believes the entire episode lasted "a few minutes". The patient denies any aura, and his friends did not report any tonic-clonic movements at the scene. He also denies any tongue biting, incontinence, or postictal confusion. He notes that when he awakened his friend insisted that he go to to the hospital (he was reluctant). He notes that his friend performed CPR on him, but did not really know how to do it. He states he was life flighted and "I was more scared than I ever was in my life". He recalls feeling lightheaded after the event, to the point where he could barely walk. He denies any previous episodes of syncope, seizure, diplopia, dysarthria, dysphagia or focal motor or sensory symptoms. PRIOR STROKES: It should be noted that the patient is a very poor historian. He reportedly had a stroke in February or March 2024. He believes he was hospitalized at [facility]. When I mention to him that his CT scan shows a chronic infarct in the luis which is a dangerous area and most often caused by small vessel disease, he remembered that they told him it was a very dangerous area when he was hospitalized and that he was very amadou. He also reports that he had a stroke prior to that many years ago. However, he does not remember any of the symptoms with his 1st or 2nd stroke. He believes with the first stroke he may have been hospitalized at [facility] in [place]. SCHEDULED MEDICATIONS: allopurinol, 100 mg, Oral, q AM amLODIPine, 10 mg, Oral, q AM aspirin, 81 mg, Oral, Daily calcium carbonate, 1,250 mg, Oral, q AM ezetimibe, 10 mg, Oral, q AM [Held by provider] furosemide, 20 mg, Oral, BID labetalol, 200 mg, Oral, q12h [Held by provider] lisinopril, 5 mg, Oral, q AM magnesium sulfate, 1 g, Intravenous, Once [Held by provider] minoxidil, 5 mg, Oral, BID mirtazapine, 7.5 mg, Oral, Nightly mycophenolate, 500 mg, Oral, BID potassium chloride, 20 mEq, Oral, Once pravastatin, 40 mg, Oral, Nightly predniSONE, 5 mg, Oral, q AM sodium chloride, 10 mL, Intravenous, q12h TORREY sucralfate, 1 g, Oral, 4x daily tacrolimus, 5 mg, Oral, BID tamsulosin, 0.8 mg, Oral, Nightly ticagrelor, 90 mg, Oral, q12h TORREY Objective GENERAL EXAMINATION: Last Recorded Vitals Blood pressure 132/73, pulse 75, temperature 36.6 ?C (97.8 ?F), temperature source Oral, resp. rate 17, height 1.753 m (5' 9"), weight 88 kg (194 lb 0.1 oz), SpO2 99%. NEUROLOGIC EXAMINATION: MENTAL STATUS: Awake. Alert. Cooperative. Oriented. Poor historian. Follows all commands. No evidence of left light confusion. SPEECH: Normal. CRANIAL NERVES II-XII: Pupils are 3/3 reactive to 2/2 to light and accommodation. Visual anglin are intact to finger count. Funduscopic examination: Sharp/flat discs. EOMI. No evidence of nystagmus. Sensation equal in all distributions of the trigeminal nerve. Masseter strength normal. Facial expression symmetric. Hearing intact bilaterally finger rub. Uvula midline. Tongue midline. Shrug normal. MOTOR: No evidence of pronation or drift. Strength 5/5 in both upper and lower extremities. Tone normal. No evidence of atrophy or fasciculations. SENSORY: Grossly intact to all modalities including light touch, temperature, vibration and proprioception. CEREBELLAR: Normal. Specifically, no evidence of dyssynergia, dysmetria or dysdiadochokinesis. REFLEXES: Symmetric. Hypoactive. Specifically, (right over left), biceps 0/0, triceps 0/0, patella 0/0, Achilles 0/0. Plantar responses: Flexor bilaterally. STATION/GAIT: Deferred. ABBREVIATED LAB : Lab Results Component Value Date WBC 4.07 11/16/2024 Hgb 10.5 (L) 11/16/2024 Hct 33.2 (L) 11/16/2024 Plt Count 156 (L) 11/16/2024 Lab Results Component Value Date Creatinine Lvl 1.97 (H) 11/16/2024 BUN 31 (H) 11/16/2024 Sodium Lvl 142 11/16/2024 Potassium Lvl 4.6 (H) 11/16/2024 Chloride Lvl 113 (H) 11/16/2024 CO2 Lvl 17.9 (L) 11/16/2024 No results found for: "AST", "ALT", "ALKPHOS" Lab Results Component Value Date Calcium Lvl 10.1 11/16/2024 Magnesium 1.85 11/16/2024 Phosphorus Lvl 2.6 11/16/2024 Lab Results Component Value Date PTT 78.8 (H) 11/16/2024 Prothrombin Time (PT) 15.4 (H) 11/16/2024 INR 1.20 (H) 11/16/2024 RELEVANT NEUROIMAGING: CT BRAIN WO IV CONTRASTResult Date: 11/10/2024 EXAM: CT BRAIN WITHOUT CONTRAST DATE: 11/10/2024 0:01 INDICATION: syncope COMPARISON: None. TECHNIQUE: Axial CT images of the brain were obtained. Sagittal and coronal reformats. IV contrast: None DLP: Refer to CT protocol form FINDINGS: There is no hemorrhage or mass lesion. Age-indeterminate lacunar infarcts involving the bilateral basal ganglia and right luis. The ventricles and sulci are enlarged from chronic brain parenchymal volume loss. Periventricular white matter hypoattenuation is nonspecific but likely represents chronic microvascular ischemic changes. The skull base, calvarium, and included facial bones are unremarkable. Trace left maxillary sinus opacification. Partial opacification of the left mastoid air cells. IMPRESSION: * No acute intracranial hemorrhage or territorial infarct. * Age-indeterminate lacunar infarcts involving the bilateral basal ganglia and right luis. * Chronic parenchymal volume loss and microvascular changes. Report finalized by: Johanne Griffin MD 11/10/2024 0:34 No MRI head results found for the past 12 monthsNo spine imaging results found for the past 12 months Transthoracic echo (TTE) complete Result Date: 11/10/2024 Intravenous contrast (Lumason) was used to enhance endocardial border definition. There is severe concentric hypertrophy. Systolic function is normal with an estimated ejection fraction of 66%, by biplane method of discs. There is grade 2 diastolic dysfunction increased filling pressures and reduced tissue Dopplervelocities. No LV thrombus was visualized with use of Lumason contrast. Right ventricle is normal in size. Right ventricular systolic function is normal (tricuspid annular planar systolic excursion is 2.0 cm). Left atrium is enlarged. Right atrium is grossly normal in size. Aortic valve is trileaflet. Mild calcification of aortic valve leaflets. Aortic sclerosis is present. No aortic regurgitation. Mitral valve with mild annular calcification. No mitral regurgitation. Tricuspid valve leaflets are normal. There is trace tricuspid regurgitation. Estimated right ventricular systolic pressure is 17 mmHg, assuming a right atrial pressure of 3 mmHg. Pulmonic valve appears normal in structure with trace regurgitation. Aortic root is normal for patient's age, gender, and body surface area. Inferior vena cava is normal with >50% respiratory variation in size. No pericardial effusion is seen. When compared to prior study from 07/03/23, no significant change is noted. All relevant neuroimaging located on this EMR has either been currently or previously reviewed by me. NEUROLOGIC IMPRESSION & RECOMMENDATIONS:IMPRESSION: 1. Syncope. 2. Prior history of "strokes" x 2 with pontine stroke likely occurring at the end of last year (2023) and hospitalized as [facility]. 3. Cerebral microvascular ischemic disease. DISCUSSION:Patient believes he was going to be discharged, but they have now found a new "lesion" on his bladder, which has to be investigated. RECOMMENDATION:1. No new neurologic recommendations. Discussed with team. Sections of this note may have been created using the [employer] voice-recognition transcribing system. Typographical errors and incorrect words or phrases may have been missed during proofreading. Please interpret accordingly. * Della Jennings NP - 11/16/2024 8:54 AM CDT Subjective He feels well, no new issues overnight. MRI AP with significant hydroureteronephrosis in relation to previously seen mass Objective Last Recorded Vitals Blood pressure 150/75, pulse 76, temperature 36.4 ?C (97.5 ?F), resp. rate 17, height 1.753 m (5' 9"), weight 88 kg (194 lb 0.1 oz), SpO2 93%. Body mass index is 28.65 kg/m?. Physical Exam: Constitutional: Appearance: Normal appearance. HENT: Head: Normocephalic and atraumatic. Nose: Nose normal. Mouth/Throat: Mouth: Mucous membranes are moist. Pharynx: Oropharynx is clear. Eyes: Pupils: Pupils are equal, round, and reactive to light. Cardiovascular: Rate and Rhythm: Normal rate. Pulmonary: Effort: Pulmonary effort is normal. Abdominal: General: Abdomen is flat. There is no distension. Tenderness: There is no abdominal tenderness. Musculoskeletal: General: No swelling. Normal range of motion. Cervical back: Normal range of motion. Skin: General: Skin is warm and dry. Capillary Refill: Capillary refill takes less than 2 seconds. Neurological: General: No focal deficit present. Mental Status: He is alert and oriented to person, place, and time. Mental status is at baseline. Psychiatric: Mood and Affect: Mood normal. Behavior: Behavior normal. Assessment & PlanSyncope and collapse Coronary artery disease involving autologous artery coronary bypass graftwithout angina pectoris Essential hypertension -donor kidney transplant KATLYN (acute kidney injury) (HCC) Paroxysmal A-fib (CMS/HCC) (HCC) Cely Myers is a 69 y.o. male with PMH significant for CAD s/p CABG in 2023, ESRD s/p DDRT, prediabetes, and HTN who presented to the ED due to syncopal episode at home witnessed by friend. Allograft FunctionDDRT 2004 KATLYN on CKD on admit. Baseline creatinine is reportedly around 1.8. He is now close to his baseline, 1.97. - UA shows proteinuria. No UTI - 11/12 Transplant ultrasound shows no renal transplant Doppler/flow abnormalities. Prominent transplant renal sinus fat and subjacent extrarenal extension with masslike appearance associated with upstream mild to moderate hydronephrosis. - 11/15 MRI AP w/wo- MRI AP with significant hydroureteronephrosis in relation to previously seen mass. - MRI Results and imaging discussed with Dr. Montalvo and Dr. Fragoso with transplant surgery. The fact that his sCr is almost at baseline is promising, although his hydro is quite significant. Will get further input from surgical oncology with regards to the mass - 11/15/24 CMV, BK, EVB not detected Maintenance ImmunosuppressionPatient has a history of 2 reported previous rejection episodes years ago. Home regimen: tacrolimus 5mg BID, Cellcept 500mg BID, Prednisone 5mg Daily - Please continue home regimen - Please order daily tacrolimus troughs while admitted. Tacrolimus level 5.4, continue tacrolimus 5 mg Q12 SyncopeCardiology and neurologic workup remain pending - checked orthostatics: Orthostatics are negative and he does not appear to be volume depleted on exam. - home diuretics continue to be on hold - infectious workup for soft BP, Respiratory panel negative, BC NTD - SPEP, UPEP and kappa/lamda free light chains still pending Patient discussed with Dr. Montalvo. Della Jennings APRN, AGACNP-BCUT Transplant Nephrology and Surgery Cosigned by Jatin Montalvo MD at 11/17/2024 5:39 AM CDT Associated attestation - Jatin Montalvo MD - 11/17/2024 5:39 AM CDT I personally examined the patient and reviewed the interim history, physical exam, laboratory, and imaging as detailed in the Nurse practitioner's note. The documentation reflects our collaborative assessment and plan. Jatin Montalvo MDTransplant Nephrology * Russel Vincent MD - 11/16/2024 7:27 AM CDT AHF Progress Note Date: 11/16/2024 Referring Provider: No ref. provider found, PCP Chief Complaint: Syncope and Weakness, Gen History of Present Illness: Cely Myers is a 69 y.o. male with PMH significant for CAD s/p CABG in 2023, PCI to RCA 2009, another PCI 8 months ago, ESRD s/p DDRT, prediabetes, and HTN who presented to the ED due to syncopal episode at home witnessed by friend. Patient not note any prodromal symptoms and says that he blacked out upon standing. He thinks he lost consciousness for around 1 to 2 minutes before coming to. EMS was called at which point patient was awake and responsive and brought to the emergency room. Initially attempted transfer to [facility] in [place] where patient underwent a renal transplant in 2004 but was not excepted due to capacity. Cardiology called due to concern for cardiac contribution to syncopal event. Patient denies any chest pain, palpitations, dyspnea, orthopnea, lightheadedness, or dizziness. This is the first time that he has had a syncopal episode that he remembers. He had a previous CABG in 2023. He denies any other significant cardiac history. The only symptoms he notes is that he has had reduced activity capacity as he gets more winded than normal but he attributes this to age. He denies any chest pain or pressure with exertion. He endorses good medication compliance and upon chart review he had a recent medication change for his Lasix was doubled from 20 mg twice a day to 40 mg twice a day. Last echo on file was done in June 2019 for which showed EF of 50 to 55%. Hada severely dilated left atrium. No significant aortic stenosis but did have noted tricuspid regurgitation. 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) and hep gtt here for Afib (which seems to be self diagnosed, when he saw a commercial on tv and realized his Sx were the same). Stopping brilinta will give still need 5 days of washout for the effect to wear off. - Discuss with Dr Tomeka Hoyos, pt's primary centrifugal extractor operator at [facility] for details about his last stent, Afib Review of Systems:All systems were reviewed and were negative unless otherwise stated above. Medications: Current Facility-Administered Medications:allopurinol (Zyloprim) tablet 100 mg, 100 mg, Oral, q AM, Cooper Augustin MD, 100 mg at 11/16/24 06 amLODIPine (Norvasc) tablet 10 mg, 10 mg, Oral, q AM, Mariaelena Moses MD, 10 mg at 11/16/24 06 aspirin chewable tablet 81 mg, 81 mg, Oral, Daily, Kenn Rendon MD, 81 mg at 11/15/24 1052 calcium carbonate (Os-Willie) 1250 (500 Ca) MG tablet 500 mg of elemental calcium, 1,250 mg, Oral, q AM, Sara Live MD ezetimibe (Zetia) tablet 10 mg, 10 mg, Oral, q AM, Cooper Augustin MD, 10 mg at 11/16/24 0613 [Held by provider] furosemide (Lasix) tablet 20 mg, 20 mg, Oral, BID, Cooper Augustin MD, 20 mg at 11/10/24 0904 heparin 50 units/mL in sodium chloride 0.45 %, 0.1-40 Units/kg/hr, Intravenous, Continuous, Isaiah Cruz MD, Last Rate: 21 mL/hr at 11/16/24 0500, 12 Units/kg/hr at 11/16/24 050 labetalol (Normodyne) tablet 200 mg, 200 mg, Oral, q12h, Mariaelena Moses MD, 200 mg at 11/15/242058 [Held by provider] lisinopril tablet 5 mg, 5 mg, Oral, q AM, Cooper Augustin MD magnesium sulfate in D5W IVPB 1 g, 1 g, Intravenous, Once, Gerardo Hoffman MD [Held by provider] minoxidil (Loniten) tablet 5 mg, 5 mg, Oral, BID, Cooper Augustin MD, 5 mg at 11/14/24 0832 mirtazapine (Remeron) tablet 7.5 mg, 7.5 mg, Oral, Nightly, Cooper Augustin MD, 7.5 mg at 11/15/242058 mycophenolate (Cellcept) capsule 500 mg, 500 mg, Oral, BID, Isaiah Cruz MD, 500 mg at 11/15/242058 potassium chloride CR (Klor-Con M20) ER tablet 20 mEq, 20 mEq, Oral, Once, Gerardo Hoffman MD pravastatin (Pravachol) tablet 40 mg, 40 mg, Oral, Nightly, Cooper Augustin MD, 40 mg at 11/15/242058 predniSONE (Deltasone) tablet 5 mg, 5 mg, Oral, q AM, Cooper Augustin MD, 5 mg at 11/16/24 0613 sodium chloride (NS) 0.9 % flush 10 mL, 10 mL, Intravenous, q12h TORREY, Cooper Augustin MD, 10 mL at 11/15/242102 sodium chloride (NS) 0.9 % flush 10 mL, 10 mL, Intravenous, PRN, Cooper Augustin MD sodium chloride 0.9 % infusion, 50 mL/hr, Intravenous, Continuous, PATRIC Hitchcock, Last Rate: 50 mL/hr at 11/16/24 0500, 50 mL/hr at 11/16/24 0500 sucralfate (Carafate) tablet 1 g, 1 g, Oral, 4x daily, Cooper Augustin MD, 1 g at 11/16/24 06 tacrolimus (Prograf) capsule 5 mg, 5 mg, Oral, BID, Cooper Augustin MD, 5 mg at 11/16/24 06 tamsulosin (Flomax) 24 hr capsule 0.8 mg, 0.8 mg, Oral, Nightly, Cooper Augustin MD, 0.8 mg at 11/15/242058 ticagrelor (Brilinta) tablet 90 mg, 90 mg, Oral, q12h TORREY, Cooper Augustin MD, 90 mg at 11/15/242058 Objective: Physical Exam:BP 130/67 | Pulse 65 | Temp 36.4 ?C (97.5 ?F) | Resp 20 | Ht 1.753 m (5' 9") | Wt 88 kg (194 lb 0.1 oz) | SpO2 98% | BMI 28.65 kg/m? I/O last 3 completed shifts: In: 4087.2 (46.4 mL/kg) [P.O.:800; I.V.:2268.2 (25.8 mL/kg); IV Piggyback:1019] Out: 3200 (36.4 mL/kg) [Urine:3200 (1 mL/kg/hr)] Weight: 88 kg General: alert, oriented, not in distress Head/mouth: oral mucosa moist, normal conjuntiva, normal eye movements Neck; supple, normal thyroid, no JVD Chest: no lesions, normal excursion Lungs: Clear to auscultation bilateral, no rales, no wheezes Heart: RHYTHM: RRR, no gallop, no rub, no murmur Abdomen: soft, non tender, non distended, BS+ Extremities: no Lower extremity edema, symmetric, normal distal pulses Skin: no rashes Laboratory Data:Results from last 7 days Lab Units 11/15/24 1214 11/15/24 0516 11/14/24 0537 11/13/24 1203 11/13/24 0547 11/13/24 0051 11/12/24 1702 11/12/24 0614 11/12/24 0614 07/15221811/09/24 1127 SODIUM mEq/L -- 138 136 -- 136 -- -- -- 139 < > 138 POTASSIUM mEq/L -- 4.3 4.2 -- 4.1 -- -- -- 4.1 < > 4.0 CHLORIDE mEq/L -- 109* 105 -- 107 -- -- -- 108* < > 108* CO2 mEq/L -- 16.1* 19.4* -- 17.8* -- -- -- 19.4* < > 24.8 BUN mg/dL -- 47* 53* -- 37* -- -- -- 28* < > 21 CREATININE mg/dL -- 2.65* 3.26* -- 2.90* -- -- -- 2.26* < > 2.26* GLUCOSE mg/dL -- 86 97 -- 93 -- -- -- 91 < > 108* CALCIUM mg/dL -- 10.5 10.2 -- 10.5 -- -- -- 10.4 < > 9.6 MAGNESIUM mg/dL -- 2.14 2.04 -- 1.96 -- -- -- 1.94 < > 1.61 PHOSPHORUS mg/dL -- 3.2 3.2 -- 3.0 -- -- -- 2.4 < > 2.3* PROTEIN TOTAL g/dL -- -- -- 8.4* -- -- -- -- -- -- -- WBC 10*3/uL -- 4.07 3.86* -- 4.78 -- 6.13 -- 5.22 < > 6.04 HEMOGLOBIN g/dL -- 10.7* 11.0* -- 11.5* -- 12.7 -- 12.9 < > 10.6* PLATELETS 10*3/uL -- 162 162 -- 172 -- 189 -- 177 < > 157* BNP pg/mL -- -- -- -- -- -- -- -- -- -- 446* TACROLIMUS LVL ng/mL -- 6.9 8.4 -- 7.5 -- -- -- 9.0 < > -- INR 1.08 1.13 -- -- 1.09 1.12 1.00 < > -- -- -- < > = values in this interval not displayed. Transthoracic echo (TTE) completeResult Date: 11/10/2024 Intravenous contrast (Lumason) was used to enhance endocardial border definition. There is severe concentric hypertrophy. Systolic function is normal with an estimated ejection fraction of 66%, by biplane method of discs. There is grade 2 diastolic dysfunction increased filling pressures and reduced tissue Dopplervelocities. No LV thrombus was visualized with use of Lumason contrast. Right ventricle is normal in size. Right ventricular systolic function is normal (tricuspid annular planar systolic excursion is 2.0 cm). Left atrium is enlarged. Right atrium is grossly normal in size. Aortic valve is trileaflet. Mild calcification of aortic valve leaflets. Aortic sclerosis is present. No aortic regurgitation. Mitral valve with mild annular calcification. No mitral regurgitation. Tricuspid valve leaflets are normal. There is trace tricuspid regurgitation. Estimated right ventricular systolic pressure is 17 mmHg, assuming a right atrial pressure of 3 mmHg. Pulmonic valve appears normal in structure with trace regurgitation. Aortic root is normal for patient's age, gender, and body surface area. Inferior vena cava is normal with >50% respiratory variation in size. No pericardial effusion is seen. When compared to prior study from 07/03/23, no significant change is noted. Encounter Date: 11/09/24XR chest 1 view Narrative EXAM: XR CHEST 1 VIEW DATE: 11/09/2024 11:50 INDICATION: SOB, hypoxia COMPARISON: None TECHNIQUE: AP chest FINDINGS: Lines and tubes: None. Lungs and Pleura: Right lung volume is slightly low. There are are ill-defined interstitial opacities in both lungs, right slightly more pronounced than left, without melody consolidation or other pulmonary or pleural based abnormality. Heart and mediastinum: Prior median sternotomy changes are demonstrated thereare are multiple mediastinal vascular clips. Aortic atherosclerotic calcifications are also noted. Chest wall: Unremarkable. Bones: No acute bony abnormality is identified. IMPRESSION:Right greater than left bronchovascular crowding, with/without superimposed pulmonary edema or developing infection. Report finalized by: Reji Kim MD 11/09/2024 12:59 Assessment/Plan: Assessment & PlanSyncope and collapse -EKG with atrial enlargement, RBBB -Troponins negative, bnp elevated to 500s. No clinical evidence of fluid overload, likely secondary to renal disease and acute syncopal event. - Ordered CT head: Old lacunar infarcts present no acute stroke or bleeding - orthostatic vitals normal - TTE 11/10/24: LVEF 66%, severe concentric hypertrophy, small LV cavity, diastolic dysfunction, no valvular abnormalities - CMRI 11/13/23: findings are in favor of cardiac amyloidosis over hypertrophic cardiomyopathy. Further evaluation with technetium pyrophosphate nuclear imaging studies recommended.(LGE burden of: 10% of the left ventricle). Plan: - PYP, SPEP, UPEP ordered to rule out amyloid. - Continue antihypertensives as below. Holding lisinopril for KATLYN which is resolving - Hold diuretics for now - Event monitor on discharge - Neurology consulted - carotid dopplers ordered, results pending. - f/u recs from neuro. Paroxysmal A-fib (CMS/HCC) ([facility]) - Reported history of Afib, though per [facility] records no documented history of LAAL - Start heparin drip - Will need 30d event monitor and eliquis on discharge. -donor kidney transplant KATLYN (acute kidney injury) ([facility]) - Cr 2.26 at presentation, baseline 1.79 - Discussed with Renal Transplant. Continue home tacrolimus 5/5, MMF, and prednisone 5 mg daily - Hold diuretics for now - Renal US 11/12: Prominent transplant renal sinus fat and subjacent extrarenal extension with masslike appearance associated with upstream mild to moderate hydronephrosis. CT/MR is recommended for further evaluation. - Renal transplant consulted - Renal function worsening on labs today. Started maintenance fluids 50ml/hr. - Renal MRI ordered per txp team recs. Results pending. - Follow up with [facility] Renal Transplant on discharge (has appointment in 2 weeks) Coronary artery disease involving autologous artery coronary bypass graft without angina pectoris - History of CAD s/p CABG in 06/2023 and PCI to the RCA 2009 - No reported symptoms concerning for acute ischemia - Continue home Brilinta Essential hypertension - now with hypotension - Continue home amlodipine 10 mg, labetalol 200 mg twice daily - Holding home lisinopril 5 mg in the setting of KATLYN on CKD. - holding minoxidil due to continued soft bps. Code Status: No Order Mariaelena Moses MD Cardiology Staff Attestation;I have seen and examined the patient with Creative Engagement Director Dr Moses on 11/16/24. I have reviewed all the clinical information, lab investigations, radiographic and other imaging data. I agree with findings, assessment and plan as outlined. Treatment plan was formulated under my direct supervision. lectronically signed by Russel Vincent MD at 11/16/2024 9:37 PM CDT * David Hays MD - 11/15/2024 4:08 PM CDT Images from the original note were not included. NEUROLOGY PROGRESS NOTE Cely Myers Admission Date: 11/09/2024 Length of Stay: 6 Days Neurologic Consultation Date: 11/11/2024 Date of Service: 11/15/24 Reason for Consultation: Syncope NEUROLOGIC PROBLEM LIST: 1. Syncope. 2. Prior history of "strokes" x 2 with pontine stroke likely occurring at the end of last year (2023) and hospitalized as [facility]. 3. Cerebral microvascular ischemic disease. MEDICAL PROBLEM LIST: Strokes x 2. Last 03/2024: Not sure symptoms. Not hospitalized. First: Medical records report 2018. Didn't know it. Second one [facility] ([facility]). Hypertension. Hyperlipidemia. Prediabetes. Coronary artery disease. End-stage renal disease on hemodialysis. History of V. tach (07/07/2023). 13 beats at 6:42 AM. Obstructive sleep apnea not on CPAP. Pyelonephritis/complicated UTI positive for E. coli (01/01/2017). Hepatitis C carrier. History of syphilis (09/11/2016). HSV-2 sero positive. Nephrolithiasis (12/14/2017). History of sepsis with E. coli (12/31/2016). 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 Arthritis. Atopic dermatitis. SURGICAL HISTORY: CABG x 3 on July 08, 2023 at [facility] (per medical record) patient did not remember the number of vessels or the exact timeframe. Renal transplant 2004 (unknown side, medical records suggest right from [facility].). AV fistula in the left arm x many. Status post RCA PCI 2009. Open cholecystectomy. Parathyroidectomy. Liver biopsy. INTERIM: 11/13/2024: Carotid ultrasound: No hemodynamically significant disease. Subjective Doing well. Neurologically stable. Awaiting discussion of plans from cardiology. HISTORY OF PRESENT ILLNESS: Cely Myers is a very pleasant 69-year-old, right-handed, -[place] gentleman whose past medical history is significant for, but not limited to; hypertension, hyperlipidemia, prediabetes, coronary artery disease status post coronary artery bypass graft x 3 vessels (per medical record). end-stage renal disease status post right DDRT (per medical record), obstructive sleep apnea, history of prior sepsis with E. coli, recurrent UTIs, polyclonal gammopathy, arthritis, history of nonsustained V. tach, status post open cholecystectomy, hepatitis C carrier, history of syphilis, nephrolithiasis, and history of prior pontine stroke (presumed 2023) and prior stroke at unknown location, who was sitting at home watching sports on [employer] with a friend and the friend's when he had his first syncopal episode without prodrome. The patient believes he was sitting in the chair or possibly attempting to stand when he was sat back down by his friend. He believes the entire episode lasted "a few minutes". The patient denies any aura, and his friends did not report any tonic-clonic movements at the scene. He also denies any tongue biting, incontinence, or postictal confusion. He notes that when he awakened his friend insisted that he go to to the hospital (he was reluctant). He notes that his friend performed CPR on him, but did not really know how to do it. He states he was life flighted and "I was more scared than I ever was in my life". He recalls feeling lightheaded after the event, to the point where he could barely walk. He denies any previous episodes of syncope, seizure, diplopia, dysarthria, dysphagia or focal motor or sensory symptoms. PRIOR STROKES: It should be noted that the patient is a very poor historian. He reportedly had a stroke in February or March 2024. He believes he was hospitalized at [facility]. When I mention to him that his CT scan shows a chronic infarct in the luis which is a dangerous area and most often caused by small vessel disease, he remembered that they told him it was a very dangerous area when he was hospitalized and that he was very amadou. He also reports that he had a stroke prior to that many years ago. However, he does not remember any of the symptoms with his 1st or 2nd stroke. He believes with the first stroke he may have been hospitalized at [facility] in [place]. SCHEDULED MEDICATIONS: allopurinol, 100 mg, Oral, q AM [Held by provider] amLODIPine, 10 mg, Oral, q AM aspirin, 81 mg, Oral, Daily ezetimibe, 10 mg, Oral, q AM [Held by provider] furosemide, 20 mg, Oral, BID [Held by provider] labetalol, 200 mg, Oral, q12h [Held by provider] lisinopril, 5 mg, Oral, q AM magnesium sulfate, 1 g, Intravenous, Once [Held by provider] minoxidil, 5 mg, Oral, BID mirtazapine, 7.5 mg, Oral, Nightly mycophenolate, 500 mg, Oral, BID Oyster Shell Calcium, 500 mg, Oral, q AM potassium chloride, 20 mEq, Oral, Once pravastatin, 40 mg, Oral, Nightly predniSONE, 5 mg, Oral, q AM sodium chloride, 10 mL, Intravenous, q12h TORREY sucralfate, 1 g, Oral, 4x daily tacrolimus, 5 mg, Oral, BID tamsulosin, 0.8 mg, Oral, Nightly ticagrelor, 90 mg, Oral, q12h TORREY Objective GENERAL EXAMINATION: Last Recorded Vitals Blood pressure 153/79, pulse 83, temperature 36.6 ?C (97.8 ?F), temperature source Oral, resp. rate 18, height 1.753 m (5' 9"), weight 89 kg (196 lb 3.4 oz), SpO2 100%. NEUROLOGIC EXAMINATION: MENTAL STATUS: Awake. Alert. Cooperative. Oriented. Poor historian. Follows all commands. No evidence of left light confusion. SPEECH: Normal. CRANIAL NERVES II-XII: Pupils are 3/3 reactive to 2/2 to light and accommodation. Visual anglin are intact to finger count. Funduscopic examination: Sharp/flat discs. EOMI. No evidence of nystagmus. Sensation equal in all distributions of the trigeminal nerve. Masseter strength normal. Facial expression symmetric. Hearing intact bilaterally finger rub. Uvula midline. Tongue midline. Shrug normal. MOTOR: No evidence of pronation or drift. Strength 5/5 in both upper and lower extremities. Tone normal. No evidence of atrophy or fasciculations. SENSORY: Grossly intact to all modalities including light touch, temperature, vibration and proprioception. CEREBELLAR: Normal. Specifically, no evidence of dyssynergia, dysmetria or dysdiadochokinesis. REFLEXES: Symmetric. Hypoactive. Specifically, (right over left), biceps 0/0, triceps 0/0, patella 0/0, Achilles 0/0. Plantar responses: Flexor bilaterally. STATION/GAIT: Deferred. ABBREVIATED LAB : Lab Results Component Value Date WBC 4.07 11/15/2024 Hgb 10.7 (L) 11/15/2024 Hct 33.4 (L) 11/15/2024 Plt Count 162 11/15/2024 Lab Results Component Value Date Creatinine Lvl 2.65 (H) 11/15/2024 BUN 47 (H) 11/15/2024 Sodium Lvl 138 11/15/2024 Potassium Lvl 4.3 11/15/2024 Chloride Lvl 109 (H) 11/15/2024 CO2 Lvl 16.1 (L) 11/15/2024 No results found for: "AST", "ALT", "ALKPHOS" Lab Results Component Value Date Calcium Lvl 10.5 11/15/2024 Magnesium 2.14 11/15/2024 Phosphorus Lvl 3.2 11/15/2024 Lab Results Component Value Date PTT 42.1 (H) 11/15/2024 Prothrombin Time (PT) 14.2 11/15/2024 INR 1.08 11/15/2024 RELEVANT NEUROIMAGING: CT BRAIN WO IV CONTRASTResult Date: 11/10/2024 EXAM: CT BRAIN WITHOUT CONTRAST DATE: 11/10/2024 0:01 INDICATION: syncope COMPARISON: None. TECHNIQUE: Axial CT images of the brain were obtained. Sagittal and coronal reformats. IV contrast: None DLP: Refer to CT protocol form FINDINGS: There is no hemorrhage or mass lesion. Age-indeterminate lacunar infarcts involving the bilateral basal ganglia and right luis. The ventricles and sulci are enlarged from chronic brain parenchymal volume loss. Periventricular white matter hypoattenuation is nonspecific but likely represents chronic microvascular ischemic changes. The skull base, calvarium, and included facial bones are unremarkable. Trace left maxillary sinus opacification. Partial opacification of the left mastoid air cells. IMPRESSION: * No acute intracranial hemorrhage or territorial infarct. * Age-indeterminate lacunar infarcts involving the bilateral basal ganglia and right luis. * Chronic parenchymal volume loss and microvascular changes. Report finalized by: Johanne Griffin MD 11/10/2024 0:34 No MRI head results found for the past 12 monthsNo spine imaging results found for the past 12 months Transthoracic echo (TTE) complete Result Date: 11/10/2024 Intravenous contrast (Lumason) was used to enhance endocardial border definition. There is severe concentric hypertrophy. Systolic function is normal with an estimated ejection fraction of 66%, by biplane method of discs. There is grade 2 diastolic dysfunction increased filling pressures and reduced tissue Dopplervelocities. No LV thrombus was visualized with use of Lumason contrast. Right ventricle is normal in size. Right ventricular systolic function is normal (tricuspid annular planar systolic excursion is 2.0 cm). Left atrium is enlarged. Right atrium is grossly normal in size. Aortic valve is trileaflet. Mild calcification of aortic valve leaflets. Aortic sclerosis is present. No aortic regurgitation. Mitral valve with mild annular calcification. No mitral regurgitation. Tricuspid valve leaflets are normal. There is trace tricuspid regurgitation. Estimated right ventricular systolic pressure is 17 mmHg, assuming a right atrial pressure of 3 mmHg. Pulmonic valve appears normal in structure with trace regurgitation. Aortic root is normal for patient's age, gender, and body surface area. Inferior vena cava is normal with >50% respiratory variation in size. No pericardial effusion is seen. When compared to prior study from 07/03/23, no significant change is noted. All relevant neuroimaging located on this EMR has either been currently or previously reviewed by me. NEUROLOGIC IMPRESSION & RECOMMENDATIONS:IMPRESSION: 1. Syncope. 2. Prior history of "strokes" x 2 with pontine stroke likely occurring at the end of last year (2023) and hospitalized as [facility]. 3. Cerebral microvascular ischemic disease. DISCUSSION:Doing well. Neurologically stable. Awaiting discussion of plans from cardiology. RECOMMENDATION:1. No new neurologic recommendations. Discussed with team. Sections of this note may have been created using the [employer] voice-recognition transcribing system. Typographical errors and incorrect words or phrases may have been missed during proofreading. Please interpret accordingly. * Shayy Carrasco NP - 11/15/2024 1:25 PM CDT Subjective Patient feels well, ready to go home. Waiting on reading for MRI. Objective Last Recorded Vitals Blood pressure 153/79, pulse 80, temperature 36.6 ?C (97.8 ?F), temperature source Oral, resp. rate 20, height 1.753 m (5' 9"), weight 89 kg (196 lb 3.4 oz), SpO2 99%. Body mass index is 28.98 kg/m?. Physical Exam: Constitutional: Appearance: Normal appearance. HENT: Head: Normocephalic and atraumatic. Nose: Nose normal. Mouth/Throat: Mouth: Mucous membranes are moist. Pharynx: Oropharynx is clear. Eyes: Pupils: Pupils are equal, round, and reactive to light. Cardiovascular: Rate and Rhythm: Normal rate. Pulmonary: Effort: Pulmonary effort is normal. Abdominal: General: Abdomen is flat. There is no distension. Tenderness: There is no abdominal tenderness. Musculoskeletal: General: No swelling. Normal range of motion. Cervical back: Normal range of motion. Skin: General: Skin is warm and dry. Capillary Refill: Capillary refill takes less than 2 seconds. Neurological: General: No focal deficit present. Mental Status: He is alert and oriented to person, place, and time. Mental status is at baseline. Psychiatric: Mood and Affect: Mood normal. Behavior: Behavior normal. Assessment & PlanSyncope and collapse Coronary artery disease involving autologous artery coronary bypass graftwithout angina pectoris Essential hypertension -donor kidney transplant KATLYN (acute kidney injury) (HCC) Paroxysmal A-fib (CMS/HCC) ([facility])Cely Myers is a 69 y.o. male with PMH significant for CAD s/p CABG in 2023, ESRD s/p DDRT, prediabetes, and HTN who presented to the ED due to syncopal episode at home witnessed by friend. Allograft FunctionDDRT 2004 KATLYN on CKD Baseline creatinine is repotedly around 1.8 Patient presented with a Cr. Of 2.2, although it is slowly returning to baseline. The etiology of this KATLYN is most likely pre-renal injury in the setting of possible hypotension. - UA shows proteinuria. No UTI - Transplant ultrasound shows no renal transplant Doppler/flow abnormalities. Prominent transplant renal sinus fat and subjacent extrarenal extension with masslike appearance associated with upstream mild to moderate hydronephrosis. - Will follow up hydronephrosis with MRI, waiting for the reading - Post void residual was 10 ml. - Ensure all medications are being dosed for eGFR -Avoid further nephrotoxins, contrast, NSAIDs - Please chart strict I/Os - CMV, BK, EVB pending Maintenance ImmunosuppressionPatient has a history of 2 reported previous rejection episodes years ago, but denies any recent rejection episodes. Patient endorses compliance and does not report missing any doses. Home regimen: tacrolimus 5mg BID, Cellcept 500mg BID, Prednisone 5mg Daily - Please continue home regimen; no need to hold IS. - Please order daily tacrolimus troughs while admitted - Tacrolimus level 6.9, continue tacrolimus 5 mg Q12 SyncopeCardiology and neurologic workup remain pending - Agree with holding diuretics for now - Recommended checking orthostatics and a serum uric acid to evaluate for volume depletion. Orthostatics are negative and he does not appear to be volume depleted on exam. - infectious workup for soft BP, Respiratory panel negative, BC in process. - SPEP, UPEP and kappa/lamda free light chains pending Patient discussed with Dr. Roshan Carrasco, PARANORMAL INVESTIGATOR, AGACNP-BCUT Transplant Nephrology and Surgery Current Diet: Adult Diet Heart Healthy Cosigned by Jatin Montalvo MD at 11/16/2024 6:07 AM CDT Associated attestation - Jatin Montalvo MD - 11/16/2024 6:07 AM CDT I personally examined the patient and reviewed the interim history, physical exam, laboratory, and imaging as detailed in the Nurse practitioner's note. The documentation reflects our collaborative assessment and plan. Jatin Montalvo MDTransplant Nephrology * Anitha Acosta RN - 11/15/2024 1:22 PM CDT CASE MANAGEMENT ROUTINE DISCHARGE PLAN NOTE LOS: 6 Barriers to Discharge: cMRI findings are in favor of cardiac amyloidosis and now undergoing work-up. Renal TP team consulted with recs. Heparin gtt. DISCHARGE PLAN A: home DISCHARGE PLAN B: as above ANAYELI: 3-5 days * Russel Vincent MD - 11/15/2024 8:37 AM CDT AHF Progress Note Date: 11/15/2024 Referring Provider: No ref. provider found, PCP Chief Complaint: Syncope and Weakness, Gen History of Present Illness: Cely Myers is a 69 y.o. male with PMH significant for CAD s/p CABG in 2023, ESRD s/p DDRT, prediabetes, and HTN who presented to the ED due to syncopal episode at home witnessed by friend. Patient not note any prodromal symptoms and says that he blacked out upon standing. He thinks he lost consciousness for around 1 to 2 minutes before coming to. EMS was called at which point patient was awake and responsive and brought to the emergency room. Initially attempted transfer to [facility] in [place] where patient underwent a renal transplant in 2004 but was not excepted due to capacity. Cardiology called due to concern for cardiac contribution to syncopal event. Patient denies any chest pain, palpitations, dyspnea, orthopnea, lightheadedness, or dizziness. This is the first time that he has had a syncopal episode that he remembers. He had a previous CABG in 2023. He denies any other significant cardiac history. The only symptoms he notes is that he has had reduced activity capacity as he gets more winded than normal but he attributes this to age. He denies any chest pain or pressure with exertion. He endorses good medication compliance and upon chart review he had a recent medication change for his Lasix was doubled from 20 mg twice a day to 40 mg twice a day. Last echo on file was done in June 2019 for which showed EF of 50 to 55%. Hada severely dilated left atrium. No significant aortic stenosis but did have noted tricuspid regurgitation. 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 Review of Systems:All systems were reviewed and were negative unless otherwise stated above. Medications: Current Facility-Administered Medications:allopurinol (Zyloprim) tablet 100 mg, 100 mg, Oral, q AM, Cooper Augustin MD, 100 mg at 11/15/24 0600 [Held by provider] amLODIPine (Norvasc) tablet 10 mg, 10 mg, Oral, q AM, Cooper Augustin MD, 10 mg at 11/14/24 06 aspirin chewable tablet 81 mg, 81 mg, Oral, Daily, Kenn Rendon MD, 81 mg at 11/14/24 0832 ezetimibe (Zetia) tablet 10 mg, 10 mg, Oral, q AM, Cooper Augustin MD, 10 mg at 11/15/24 0600 [Held by provider] furosemide (Lasix) tablet 20 mg, 20 mg, Oral, BID, Cooper Augustin MD, 20 mg at 11/10/24 09 heparin 50 units/mL in sodium chloride 0.45 %, 0.1-40 Units/kg/hr, Intravenous, Continuous, Isaiah Cruz MD, Last Rate: 17.52 mL/hr at 11/15/24 0300, 10 Units/kg/hr at 11/15/24 0300 [Held by provider] labetalol (Normodyne) tablet 200 mg, 200 mg, Oral, q12h, Cooper Augustin MD, 200 mg at 11/14/24 0832 [Held by provider] lisinopril tablet 5 mg, 5 mg, Oral, q AM, Cooper Augustin MD magnesium sulfate in D5W IVPB 1 g, 1 g, Intravenous, Once, Gerardo Hoffman MD [Held by provider] minoxidil (Loniten) tablet 5 mg, 5 mg, Oral, BID, Cooper Augustin MD, 5 mg at 11/14/24831 mirtazapine (Remeron) tablet 7.5 mg, 7.5 mg, Oral, Nightly, Cooper Augustin MD, 7.5 mg at 11/14/24 210 mycophenolate (Cellcept) capsule 500 mg, 500 mg, Oral, BID, Isaiah Cruz MD, 500 mg at 11/14/242104 Oyster Shell Calcium tablet 500 mg of elemental calcium, 500 mg, Oral, q AM, Saar Live MD, 500 mg of elemental calcium at 11/14/24 0832 potassium chloride CR (Klor-Con M20) ER tablet 20 mEq, 20 mEq, Oral, Once, Gerardo Hoffman MD pravastatin (Pravachol) tablet 40 mg, 40 mg, Oral, Nightly, Cooper Augustin MD, 40 mg at 11/14/242104 predniSONE (Deltasone) tablet 5 mg, 5 mg, Oral, q AM, Cooper Augustin MD, 5 mg at 11/15/24 06 sodium chloride (NS) 0.9 % flush 10 mL, 10 mL, Intravenous, q12h TORREY, Cooper Augustin MD, 10 mL at 11/14/242106 sodium chloride (NS) 0.9 % flush 10 mL, 10 mL, Intravenous, PRN, Cooper Augustin MD sodium chloride 0.9 % infusion, 50 mL/hr, Intravenous, Continuous, PATRIC Hitchcock, Last Rate: 50 mL/hr at 11/15/24707, 50 mL/hr at 11/15/24707 sucralfate (Carafate) tablet 1 g, 1 g, Oral, 4x daily, Cooper Augustin MD, 1 g at 11/15/24 06 tacrolimus (Prograf) capsule 5 mg, 5 mg, Oral, BID, Cooper Augustin MD, 5 mg at 11/15/24599 tamsulosin (Flomax) 24 hr capsule 0.8 mg, 0.8 mg, Oral, Nightly, Cooper Augustin MD, 0.8 mg at 11/14/242103 ticagrelor (Brilinta) tablet 90 mg, 90 mg, Oral, q12h TORREY, Cooper Augustin MD, 90 mg at 11/14/242104 Objective: Physical Exam:BP 136/78 | Pulse 88 | Temp 36.8 ?C (98.2 ?F) (Oral) | Resp 20 | Ht 1.753 m (5' 9") | Wt 89 kg (196 lb 3.4 oz) | SpO2 100% | BMI 28.98 kg/m? I/O last 3 completed shifts: In: 1543.8 (17.3 mL/kg) [P.O.:220; I.V.:1323.8 (14.9 mL/kg)] Out: 250 (2.8 mL/kg) [Urine:250 (0.1 mL/kg/hr)] Weight: 89 kg General: alert, oriented, not in distress Head/mouth: oral mucosa moist, normal conjuntiva, normal eye movements Neck; supple, normal thyroid, no JVD Chest: no lesions, normal excursion Lungs: Clear to auscultation bilateral, no rales, no wheezes Heart: RHYTHM: RRR, no gallop, no rub, no murmur Abdomen: soft, non tender, non distended, BS+ Extremities: no Lower extremity edema, symmetric, normal distal pulses Skin: no rashes Laboratory Data:Results from last 7 days Lab Units 11/14/24 0537 11/13/24 1203 11/13/24 0547 11/13/24 0051 11/12/24 1702 11/12/24 0614 11/11/24 0553 11/09/24 2219 11/09/24 1127 SODIUM mEq/L 136 -- 136 -- -- 139 140 < > 138 POTASSIUM mEq/L 4.2 -- 4.1 -- -- 4.1 3.9 < > 4.0 CHLORIDE mEq/L 105 -- 107 -- -- 108* 109* < > 108* CO2 mEq/L 19.4* -- 17.8* -- -- 19.4* 20.5 < > 24.8 BUN mg/dL 53* -- 37* -- -- 28* 22 < > 21 CREATININE mg/dL 3.26* -- 2.90* -- -- 2.26* 1.99* < > 2.26* GLUCOSE mg/dL 97 -- 93 -- -- 91 84 < > 108* CALCIUM mg/dL 10.2 -- 10.5 -- -- 10.4 10.1 < > 9.6 MAGNESIUM mg/dL 2.04 -- 1.96 -- -- 1.94 1.88 < > 1.61 PHOSPHORUS mg/dL 3.2 -- 3.0 -- -- 2.4 2.0* < > 2.3* PROTEIN TOTAL g/dL -- 8.4* -- -- -- -- -- -- -- WBC 10*3/uL 3.86* -- 4.78 -- 6.13 5.22 5.42 < > 6.04 HEMOGLOBIN g/dL 11.0* -- 11.5* -- 12.7 12.9 12.4 < > 10.6* PLATELETS 10*3/uL 162 -- 172 -- 189 177 214 < > 157* BNP pg/mL -- -- -- -- -- -- -- -- 446* TACROLIMUS LVL ng/mL 8.4 -- 7.5 -- -- 9.0 6.0 < > -- INR -- -- 1.09 1.12 1.00 -- -- -- -- < > = values in this interval not displayed. Transthoracic echo (TTE) completeResult Date: 11/10/2024 Intravenous contrast (Lumason) was used to enhance endocardial border definition. There is severe concentric hypertrophy. Systolic function is normal with an estimated ejection fraction of 66%, by biplane method of discs. There is grade 2 diastolic dysfunction increased filling pressures and reduced tissue Dopplervelocities. No LV thrombus was visualized with use of Lumason contrast. Right ventricle is normal in size. Right ventricular systolic function is normal (tricuspid annular planar systolic excursion is 2.0 cm). Left atrium is enlarged. Right atrium is grossly normal in size. Aortic valve is trileaflet. Mild calcification of aortic valve leaflets. Aortic sclerosis is present. No aortic regurgitation. Mitral valve with mild annular calcification. No mitral regurgitation. Tricuspid valve leaflets are normal. There is trace tricuspid regurgitation. Estimated right ventricular systolic pressure is 17 mmHg, assuming a right atrial pressure of 3 mmHg. Pulmonic valve appears normal in structure with trace regurgitation. Aortic root is normal for patient's age, gender, and body surface area. Inferior vena cava is normal with >50% respiratory variation in size. No pericardial effusion is seen. When compared to prior study from 07/03/23, no significant change is noted. Encounter Date: 11/09/24XR chest 1 view Narrative EXAM: XR CHEST 1 VIEW DATE: 11/09/2024 11:50 INDICATION: SOB, hypoxia COMPARISON: None TECHNIQUE: AP chest FINDINGS: Lines and tubes: None. Lungs and Pleura: Right lung volume is slightly low. There are are ill-defined interstitial opacities in both lungs, right slightly more pronounced than left, without melody consolidation or other pulmonary or pleural based abnormality. Heart and mediastinum: Prior median sternotomy changes are demonstrated thereare are multiple mediastinal vascular clips. Aortic atherosclerotic calcifications are also noted. Chest wall: Unremarkable. Bones: No acute bony abnormality is identified. IMPRESSION:Right greater than left bronchovascular crowding, with/without superimposed pulmonary edema or developing infection. Report finalized by: Reji Kim MD 11/09/2024 12:59 Assessment/Plan: Assessment & PlanSyncope and collapse -EKG with atrial enlargement, RBBB -Troponins negative, bnp elevated to 500s. No clinical evidence of fluid overload, likely secondary to renal disease and acute syncopal event. - Ordered CT head: Old lacunar infarcts present no acute stroke or bleeding - orthostatic vitals normal - TTE 11/10/24: LVEF 66%, severe concentric hypertrophy, small LV cavity, diastolic dysfunction, no valvular abnormalities - CMRI 11/13/23: findings are in favor of cardiac amyloidosis over hypertrophic cardiomyopathy. Further evaluation with technetium pyrophosphate nuclear imaging studies recommended.(LGE burden of: 10% of the left ventricle). Plan: - PYP, SPEP, UPEP ordered to rule out amyloid. - Continue antihypertensives as below. Holding lisinopril for KATLYN which is resolving - Hold diuretics for now - Event monitor on discharge - Neurology consulted - carotid dopplers ordered, results pending. - f/u recs from neuro. Paroxysmal A-fib ([facility]/HCC) ([facility]) - Reported history of Afib, though per [facility] records no documented history of LAAL - Start heparin drip - Will need 30d event monitor and eliquis on discharge. -donor kidney transplant KATLYN (acute kidney injury) ([facility]) - Cr 2.26 at presentation, baseline 1.79 - Discussed with Renal Transplant. Continue home tacrolimus 5/5, MMF, and prednisone 5 mg daily - Hold diuretics for now - Renal US 11/12: Prominent transplant renal sinus fat and subjacent extrarenal extension with masslike appearance associated with upstream mild to moderate hydronephrosis. CT/MR is recommended for further evaluation. - Renal transplant consulted - Renal function worsening on labs today. Started maintenance fluids 50ml/hr. - Renal MRI ordered per txp team recs. Results pending. - Follow up with [facility] Renal Transplant on discharge (has appointment in 2 weeks) Coronary artery disease involving autologous artery coronary bypass graft without angina pectoris - History of CAD s/p CABG in 2023 and PCI to the RCA - No reported symptoms concerning for acute ischemia - Continue home Brilinta Essential hypertension - now with hypotension - Continue home amlodipine 10 mg, labetalol 200 mg twice daily - Holding home lisinopril 5 mg in the setting of KATLYN on CKD. - holding minoxidil due to continued soft bps. Code Status: No Order Mariaelena Moses MD Cardiology Staff Attestation;I have seen and examined the patient with Creative Engagement Director Dr Moses on 11/15/24. I have reviewed all the clinical information, lab investigations, radiographic and other imaging data. I agree with findings, assessment and plan as outlined. Treatment plan was formulated under my direct supervision. Syncope likely related to increased dose of diuretics along with multiple antihypertensive regimen. Will obtain orthostatics Restart amlodipine and labetalol for blood pressure management. If remains hemodynamically stable anticipate discharge in 24 to 48 hours. In regards to renal mass will contact renal transplant team for further recommendations. Treatment plan was discussed at length with the patient lectronically signed by Russel Vincent MD at 11/15/2024 9:45 PM CDT * David Hays MD - 11/14/2024 9:34 PM CDT Images from the original note were not included. NEUROLOGY PROGRESS NOTE Cely Booth Louis Admission Date: 11/09/2024 Length of Stay: 5 Days Neurologic Consultation Date: 11/11/2024 Date of Service: 11/14/24 Reason for Consultation: Syncope NEUROLOGIC PROBLEM LIST: 1. Syncope. 2. Prior history of "strokes" x 2 with pontine stroke likely occurring at the end of last year (2023) and hospitalized as [facility]. 3. Cerebral microvascular ischemic disease. MEDICAL PROBLEM LIST: Strokes x 2. Last 03/2024: Not sure symptoms. Not hospitalized. First: Medical records report 2019. Didn't know it. Second one [facility] ([facility]). Hypertension. Hyperlipidemia. Prediabetes. Coronary artery disease. End-stage renal disease on hemodialysis. History of V. tach (07/07/2023). 13 beats at 6:42 AM. Obstructive sleep apnea not on CPAP. Pyelonephritis/complicated UTI positive for E. coli (01/01/2017). Hepatitis C carrier. History of syphilis (09/11/2016). HSV-2 sero positive. Nephrolithiasis (12/14/2017). History of sepsis with E. coli (12/31/2016). 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 Arthritis. Atopic dermatitis. SURGICAL HISTORY: CABG x 3 on July 08, 2023 at [facility] (per medical record) patient did not remember the number of vessels or the exact timeframe. Renal transplant 2004 (unknown side, medical records suggest right from [facility].). AV fistula in the left arm x many. Status post RCA PCI 2009. Open cholecystectomy. Parathyroidectomy. Liver biopsy. INTERIM: 11/13/2024: Carotid ultrasound: No hemodynamically significant disease. Subjective No new focal or generalized neurologic complaints. MRI of the brain which has been ordered several times by the primary team has also been no DC'd. Extracranial Dopplers were negative for any obvious large vessel occlusion. HISTORY OF PRESENT ILLNESS: Cely Myers is a very pleasant 69-year-old, right-handed, -[place] gentleman whose past medical history is significant for, but not limited to; hypertension, hyperlipidemia, prediabetes, coronary artery disease status post coronary artery bypass graft x 3 vessels (per medical record). end-stage renal disease status post right DDRT (per medical record), obstructive sleep apnea, history of prior sepsis with E. coli, recurrent UTIs, polyclonal gammopathy, arthritis, history of nonsustained V. tach, status post open cholecystectomy, hepatitis C carrier, history of syphilis, nephrolithiasis, and history of prior pontine stroke (presumed 2023) and prior stroke at unknown location, who was sitting at home watching sports on [employer] with a friend and the friend's when he had his first syncopal episode without prodrome. The patient believes he was sitting in the chair or possibly attempting to stand when he was sat back down by his friend. He believes the entire episode lasted "a few minutes". The patient denies any aura, and his friends did not report any tonic-clonic movements at the scene. He also denies any tongue biting, incontinence, or postictal confusion. He notes that when he awakened his friend insisted that he go to to the hospital (he was reluctant). He notes that his friend performed CPR on him, but did not really know how to do it. He states he was life flighted and "I was more scared than I ever was in my life". He recalls feeling lightheaded after the event, to the point where he could barely walk. He denies any previous episodes of syncope, seizure, diplopia, dysarthria, dysphagia or focal motor or sensory symptoms. PRIOR STROKES: It should be noted that the patient is a very poor historian. He reportedly had a stroke in February or March 2024. He believes he was hospitalized at [facility]. When I mention to him that his CT scan shows a chronic infarct in the luis which is a dangerous area and most often caused by small vessel disease, he remembered that they told him it was a very dangerous area when he was hospitalized and that he was very amadou. He also reports that he had a stroke prior to that many years ago. However, he does not remember any of the symptoms with his 1st or 2nd stroke. He believes with the first stroke he may have been hospitalized at [facility] in [place]. SCHEDULED MEDICATIONS: allopurinol, 100 mg, Oral, q AM [Held by provider] amLODIPine, 10 mg, Oral, q AM aspirin, 81 mg, Oral, Daily ezetimibe, 10 mg, Oral, q AM [Held by provider] furosemide, 20 mg, Oral, BID [Held by provider] labetalol, 200 mg, Oral, q12h [Held by provider] lisinopril, 5 mg, Oral, q AM magnesium sulfate, 1 g, Intravenous, Once [Held by provider] minoxidil, 5 mg, Oral, BID mirtazapine, 7.5 mg, Oral, Nightly mycophenolate, 500 mg, Oral, BID Oyster Shell Calcium, 500 mg, Oral, q AM potassium chloride, 20 mEq, Oral, Once pravastatin, 40 mg, Oral, Nightly predniSONE, 5 mg, Oral, q AM sodium chloride, 10 mL, Intravenous, q12h TORREY [START ON 11/15/2024] sodium chloride, 1,000 mL, Intravenous, Once sucralfate, 1 g, Oral, 4x daily tacrolimus, 5 mg, Oral, BID tamsulosin, 0.8 mg, Oral, Nightly ticagrelor, 90 mg, Oral, q12h TORREY Objective GENERAL EXAMINATION: Last Recorded Vitals Blood pressure (!) 115/57, pulse 77, temperature 36.8 ?C (98.2 ?F), temperature source Oral, resp. rate 20, height 1.753 m (5' 9"), weight 88.9 kg (195 lb 15.8 oz), SpO2 97%. NEUROLOGIC EXAMINATION: MENTAL STATUS: Awake. Alert. Cooperative. Oriented. Poor historian. Follows all commands. No evidence of left light confusion. SPEECH: Normal. CRANIAL NERVES II-XII: Pupils are 3/3 reactive to 2/2 to light and accommodation. Visual anglin are intact to finger count. Funduscopic examination: Sharp/flat discs. EOMI. No evidence of nystagmus. Sensation equal in all distributions of the trigeminal nerve. Masseter strength normal. Facial expression symmetric. Hearing intact bilaterally finger rub. Uvula midline. Tongue midline. Shrug normal. MOTOR: No evidence of pronation or drift. Strength 5/5 in both upper and lower extremities. Tone normal. No evidence of atrophy or fasciculations. SENSORY: Grossly intact to all modalities including light touch, temperature, vibration and proprioception. CEREBELLAR: Normal. Specifically, no evidence of dyssynergia, dysmetria or dysdiadochokinesis. REFLEXES: Symmetric. Hypoactive. Specifically, (right over left), biceps 0/0, triceps 0/0, patella 0/0, Achilles 0/0. Plantar responses: Flexor bilaterally. STATION/GAIT: Deferred. ABBREVIATED LAB : Lab Results Component Value Date WBC 3.86 (L) 11/14/2024 Hgb 11.0 (L) 11/14/2024 Hct 33.0 (L) 11/14/2024 Plt Count 162 11/14/2024 Lab Results Component Value Date Creatinine Lvl 3.26 (H) 11/14/2024 BUN 53 (H) 11/14/2024 Sodium Lvl 136 11/14/2024 Potassium Lvl 4.2 11/14/2024 Chloride Lvl 105 11/14/2024 CO2 Lvl 19.4 (L) 11/14/2024 No results found for: "AST", "ALT", "ALKPHOS" Lab Results Component Value Date Calcium Lvl 10.2 11/14/2024 Magnesium 2.04 11/14/2024 Phosphorus Lvl 3.2 11/14/2024 Lab Results Component Value Date PTT 87.2 (H) 11/14/2024 Prothrombin Time (PT) 14.3 11/13/2024 INR 1.09 11/13/2024 RELEVANT NEUROIMAGING: CT BRAIN WO IV CONTRASTResult Date: 11/10/2024 EXAM: CT BRAIN WITHOUT CONTRAST DATE: 11/10/2024 0:01 INDICATION: syncope COMPARISON: None. TECHNIQUE: Axial CT images of the brain were obtained. Sagittal and coronal reformats. IV contrast: None DLP: Refer to CT protocol form FINDINGS: There is no hemorrhage or mass lesion. Age-indeterminate lacunar infarcts involving the bilateral basal ganglia and right luis. The ventricles and sulci are enlarged from chronic brain parenchymal volume loss. Periventricular white matter hypoattenuation is nonspecific but likely represents chronic microvascular ischemic changes. The skull base, calvarium, and included facial bones are unremarkable. Trace left maxillary sinus opacification. Partial opacification of the left mastoid air cells. IMPRESSION: * No acute intracranial hemorrhage or territorial infarct. * Age-indeterminate lacunar infarcts involving the bilateral basal ganglia and right luis. * Chronic parenchymal volume loss and microvascular changes. Report finalized by: Johanne Griffin MD 11/10/2024 0:34 No MRI head results found for the past 12 monthsNo spine imaging results found for the past 12 months Transthoracic echo (TTE) complete Result Date: 11/10/2024 Intravenous contrast (Lumason) was used to enhance endocardial border definition. There is severe concentric hypertrophy. Systolic function is normal with an estimated ejection fraction of 66%, by biplane method of discs. There is grade 2 diastolic dysfunction increased filling pressures and reduced tissue Dopplervelocities. No LV thrombus was visualized with use of Lumason contrast. Right ventricle is normal in size. Right ventricular systolic function is normal (tricuspid annular planar systolic excursion is 2.0 cm). Left atrium is enlarged. Right atrium is grossly normal in size. Aortic valve is trileaflet. Mild calcification of aortic valve leaflets. Aortic sclerosis is present. No aortic regurgitation. Mitral valve with mild annular calcification. No mitral regurgitation. Tricuspid valve leaflets are normal. There is trace tricuspid regurgitation. Estimated right ventricular systolic pressure is 17 mmHg, assuming a right atrial pressure of 3 mmHg. Pulmonic valve appears normal in structure with trace regurgitation. Aortic root is normal for patient's age, gender, and body surface area. Inferior vena cava is normal with >50% respiratory variation in size. No pericardial effusion is seen. When compared to prior study from 07/03/23, no significant change is noted. All relevant neuroimaging located on this EMR has either been currently or previously reviewed by me. NEUROLOGIC IMPRESSION & RECOMMENDATIONS:IMPRESSION: 1. Syncope. 2. Prior history of "strokes" x 2 with pontine stroke likely occurring at the end of last year (2023) and hospitalized as [facility]. 3. Cerebral microvascular ischemic disease. DISCUSSION:No new focal or generalized neurologic complaints. MRI of the brain which has been ordered several times by the primary team has also been no DC'd. Extracranial Dopplers were negative for any obvious large vessel occlusion. RECOMMENDATION:1. No new neurologic recommendations. Discussed with team. Sections of this note may have been created using the [employer] voice-recognition transcribing system. Typographical errors and incorrect words or phrases may have been missed during proofreading. Please interpret accordingly. * Shayy Carrasco NP - 11/14/2024 11:53 AM CDT Subjective Patient sitting up in bedside chair. No complaints, feels about the same as yesterday. BP soft, IVF started at 50 ml/hr. Post void residual 10cc. Creatinine rising, will change MRI abd/pelvis to be completed today. Will do a infectious workup for soft BP Objective Last Recorded Vitals Blood pressure 101/60, pulse 76, temperature 36.8 ?C (98.2 ?F), resp. rate 20, height 1.753 m (5' 9"), weight 88.9 kg (195 lb 15.8 oz), SpO2 96%. Body mass index is 28.94 kg/m?. Physical Exam: Constitutional: Appearance: Normal appearance. HENT: Head: Normocephalic and atraumatic. Nose: Nose normal. Mouth/Throat: Mouth: Mucous membranes are moist. Pharynx: Oropharynx is clear. Eyes: Pupils: Pupils are equal, round, and reactive to light. Cardiovascular: Rate and Rhythm: Normal rate. Pulmonary: Effort: Pulmonary effort is normal. Abdominal: General: Abdomen is flat. There is no distension. Tenderness: There is no abdominal tenderness. Musculoskeletal: General: No swelling. Normal range of motion. Cervical back: Normal range of motion. Skin: General: Skin is warm and dry. Capillary Refill: Capillary refill takes less than 2 seconds. Neurological: General: No focal deficit present. Mental Status: He is alert and oriented to person, place, and time. Mental status is at baseline. Psychiatric: Mood and Affect: Mood normal. Behavior: Behavior normal. Assessment & PlanSyncope and collapse Coronary artery disease involving autologous artery coronary bypass graftwithout angina pectoris Essential hypertension -donor kidney transplant KATLYN (acute kidney injury) (HCC) Paroxysmal A-fib (CMS/HCC) (HCC)Cely Myers is a 69 y.o. male with PMH significant for CAD s/p CABG in 2023, ESRD s/p DDRT, prediabetes, and HTN who presented to the ED due to syncopal episode at home witnessed by friend. Allograft FunctionDDRT 2004 KATLYN on CKD Baseline creatinine is repotedly around 1.8 Patient presented with a Cr. Of 2.2, although it is slowly returning to baseline. The etiology of this KATLYN is most likely pre-renal injury in the setting of possible hypotension. - UA shows proteinuria. No UTI - Transplant ultrasound shows no renal transplant Doppler/flow abnormalities. Prominent transplant renal sinus fat and subjacent extrarenal extension with masslike appearance associated with upstream mild to moderate hydronephrosis. - Will follow up hydronephrosis with MRI, will make stat for rising creatinine - Post void residual was 10 ml. - Ensure all medications are being dosed for eGFR -Avoid further nephrotoxins, contrast, NSAIDs - Please chart strict I/Os - CMV, BK, EVB pending Maintenance ImmunosuppressionPatient has a history of 2 reported previous rejection episodes years ago, but denies any recent rejection episodes. Patient endorses compliance and does not report missing any doses. Home regimen: tacrolimus 5mg BID, Cellcept 500mg BID, Prednisone 5mg Daily - Please continue home regimen; no need to hold IS. - Please order daily tacrolimus troughs while admitted - Tacrolimus level 8.4, continue tacrolimus 5 mg Q12 SyncopeCardiology and neurologic workup remain pending - Agree with holding diuretics for now - Recommended checking orthostatics and a serum uric acid to evaluate for volume depletion. Orthostatics are negative and he does not appear to be volume depleted on exam. - Will do a infectious workup for soft BP Patient discussed with Dr. Roshan Carrasco, PARANORMAL INVESTIGATOR, AGACNP-[facility] Transplant Nephrology and Surgery Current Diet: Adult Diet Heart Healthy Cosigned by Kalyn Islas MD at 11/14/2024 1:26 PM CDT Associated attestation - Kalyn Islas MD - 11/14/2024 1:26 PM CDT Transplant Nephrology Attending Attestation: Creatinine continues to increase.Etiology is likely multifactorial. He has findings of hydronephrosis and possible mass in/near the kidney. MRI urogram is still pending and will be done Friday morning per MRI billboard mechanic. PVR is only 10mL so retention is unlikely. U/A was negative for UTI. He did receive contrast a few days ago with CT scan so this could be contributing. No other obvious nephrotoxic agents have been given while inpatient. Tac trough is appropriate. He is hypotensive despite not being on his 5 home BP meds. This is likely contributing to KATLYN. Recommend gentle IV fluid hydration in setting of CHF. Also would work up source of the hypotension. He has had sub-optimal appetite which could be contributing to volume depletion, however would recommend infectious workup with blood cultures, respiratory viral panel, stool studies. He has been having intermittent diarrhea and loose stools. I personally examined the patient and reviewed the interim history, physical exam, laboratory, and imaging as detailed in the Shayy Carrasco's note. The documentation reflects our collaborative assessment and plan. Assessment and plan discussed with Dr. Montalvo. Kalyn Islas M.D.Transplant Nephrology * PATRIC Hitchcock - 11/14/2024 6:21 AM CDT [facility] Progress Note Date: 11/14/2024 Referring Provider: No ref. provider found, PCP Chief Complaint: Syncope and Weakness, Gen History of Present Illness: Cely Myers is a 69 y.o. male with PMH significant for CAD s/p CABG in 2023, ESRD s/p DDRT, prediabetes, and HTN who presented to the ED due to syncopal episode at home witnessed by friend. Patient not note any prodromal symptoms and says that he blacked out upon standing. He thinks he lost consciousness for around 1 to 2 minutes before coming to. EMS was called at which point patient was awake and responsive and brought to the emergency room. Initially attempted transfer to [facility] in [place] where patient underwent a renal transplant in 2004 but was not excepted due to capacity. Cardiology called due to concern for cardiac contribution to syncopal event. Patient denies any chest pain, palpitations, dyspnea, orthopnea, lightheadedness, or dizziness. This is the first time that he has had a syncopal episode that he remembers. He had a previous CABG in 2023. He denies any other significant cardiac history. The only symptoms he notes is that he has had reduced activity capacity as he gets more winded than normal but he attributes this to age. He denies any chest pain or pressure with exertion. He endorses good medication compliance and upon chart review he had a recent medication change for his Lasix was doubled from 20 mg twice a day to 40 mg twice a day. Last echo on file was done in June 2019 for which showed EF of 50 to 55%. Hada severely dilated left atrium. No significant aortic stenosis but did have noted tricuspid regurgitation. Subjective:Few short episodes of NSVT on tele overnight Marginal BPs Renal function worsening Review of Systems:All systems were reviewed and were negative unless otherwise stated above. Medications: Current Facility-Administered Medications:allopurinol (Zyloprim) tablet 100 mg, 100 mg, Oral, q AM, Cooper Augustin MD, 100 mg at 11/14/24 06 amLODIPine (Norvasc) tablet 10 mg, 10 mg, Oral, q AM, Cooper Augustin MD, 10 mg at 11/14/24 0604 aspirin chewable tablet 81 mg, 81 mg, Oral, Daily, Kenn Rendon MD, 81 mg at 11/13/24 0814 ezetimibe (Zetia) tablet 10 mg, 10 mg, Oral, q AM, Cooper Augustin MD, 10 mg at 11/14/24 0604 [Held by provider] furosemide (Lasix) tablet 20 mg, 20 mg, Oral, BID, Cooper Augustin MD, 20 mg at 11/10/24 0904 heparin 50 units/mL in sodium chloride 0.45 %, 0.1-40 Units/kg/hr, Intravenous, Continuous, Isaiah Cruz MD, Last Rate: 22.8 mL/hr at 11/13/242314, 13 Units/kg/hr at 11/13/242314 labetalol (Normodyne) tablet 200 mg, 200 mg, Oral, q12h, Cooper Augustin MD, 200 mg at 11/13/242040 [Held by provider] lisinopril tablet 5 mg, 5 mg, Oral, q AM, Cooper Augustin MD magnesium sulfate in D5W IVPB 1 g, 1 g, Intravenous, Once, Gerardo Hoffman MD minoxidil (Loniten) tablet 5 mg, 5 mg, Oral, BID, Cooper Augustin MD, 5 mg at 11/13/24 173 mirtazapine (Remeron) tablet 7.5 mg, 7.5 mg, Oral, Nightly, Cooper Augustin MD, 7.5 mg at 11/13/242040 mycophenolate (Cellcept) capsule 500 mg, 500 mg, Oral, BID, Isaiah Cruz MD, 500 mg at 11/13/24 1719 Oyster Shell Calcium tablet 500 mg of elemental calcium, 500 mg, Oral, q AM, Sara Live MD, 500 mg of elemental calcium at 11/13/24 0814 potassium chloride CR (Klor-Con M20) ER tablet 20 mEq, 20 mEq, Oral, Once, Gerardo Hoffman MD pravastatin (Pravachol) tablet 40 mg, 40 mg, Oral, Nightly, Cooper Augustin MD, 40 mg at 11/13/242040 predniSONE (Deltasone) tablet 5 mg, 5 mg, Oral, q AM, Cooper Augustin MD, 5 mg at 11/14/24 0605 sodium chloride (NS) 0.9 % flush 10 mL, 10 mL, Intravenous, q12h TORREY, Cooper Augustin MD, 10 mL at 11/13/242041 sodium chloride (NS) 0.9 % flush 10 mL, 10 mL, Intravenous, PRN, Cooper Augustin MD sucralfate (Carafate) tablet 1 g, 1 g, Oral, 4x daily, Cooper Augustin MD, 1 g at 11/13/242040 tacrolimus (Prograf) capsule 5 mg, 5 mg, Oral, BID, Cooper Augustin MD, 5 mg at 11/14/24603 tamsulosin (Flomax) 24 hr capsule 0.8 mg, 0.8 mg, Oral, Nightly, Cooper Augustin MD, 0.8 mg at 11/13/242040 ticagrelor (Brilinta) tablet 90 mg, 90 mg, Oral, q12h TORREY, Cooper Augustin MD, 90 mg at 11/13/242040 Objective: Physical Exam:BP 133/71 | Pulse 76 | Temp 36.4 ?C (97.6 ?F) (Temporal) | Resp 18 | Ht 1.753 m (5' 9") | Wt 88.9 kg (195 lb 15.8 oz) | SpO2 98% | BMI 28.94 kg/m? I/O last 3 completed shifts: In: 1555.7 (17.7 mL/kg) [P.O.:1070; I.V.:465.7 (5.3 mL/kg); IV Piggyback:20] Out: 600 (6.8 mL/kg) [Urine:600 (0.2 mL/kg/hr)] Weight: 88 kg General: alert, oriented, not in distress Head/mouth: oral mucosa moist, normal conjuntiva, normal eye movements Neck; supple, normal thyroid, no JVD Chest: no lesions, normal excursion Lungs: Clear to auscultation bilateral, no rales, no wheezes Heart: RHYTHM: RRR, no gallop, no rub, no murmur Abdomen: soft, non tender, non distended, BS+ Extremities: no Lower extremity edema, symmetric, normal distal pulses Skin: no rashes Laboratory Data:Results from last 7 days Lab Units 11/13/24 1203 11/13/24 0547 11/13/24 0051 11/12/24 1702 11/12/24 0614 11/11/24 0553 11/10/24 0441 11/09/24 2219 11/09/24 1127 SODIUM mEq/L -- 136 -- -- 139 140 138 < > 138 POTASSIUM mEq/L -- 4.1 -- -- 4.1 3.9 3.5 < > 4.0 CHLORIDE mEq/L -- 107 -- -- 108* 109* 109* < > 108* CO2 mEq/L -- 17.8* -- -- 19.4* 20.5 25.0 < > 24.8 BUN mg/dL -- 37* -- -- 28* 22 20 < > 21 CREATININE mg/dL -- 2.90* -- -- 2.26* 1.99* 1.97* < > 2.26* GLUCOSE mg/dL -- 93 -- -- 91 84 101* < > 108* CALCIUM mg/dL -- 10.5 -- -- 10.4 10.1 9.8 < > 9.6 MAGNESIUM mg/dL -- 1.96 -- -- 1.94 1.88 1.89 -- 1.61 PHOSPHORUS mg/dL -- 3.0 -- -- 2.4 2.0* 2.4 -- 2.3* PROTEIN TOTAL g/dL 8.4* -- -- -- -- -- -- -- -- WBC 10*3/uL -- 4.78 -- 6.13 5.22 5.42 -- < > 6.04 HEMOGLOBIN g/dL -- 11.5* -- 12.7 12.9 12.4 -- < > 10.6* PLATELETS 10*3/uL -- 172 -- 189 177 214 -- < > 157* BNP pg/mL -- -- -- -- -- -- -- -- 446* TACROLIMUS LVL ng/mL -- 7.5 -- -- 9.0 6.0 7.1 -- -- INR -- 1.09 1.12 1.00 -- -- -- -- -- < > = values in this interval not displayed. Transthoracic echo (TTE) completeResult Date: 11/10/2024 Intravenous contrast (Lumason) was used to enhance endocardial border definition. There is severe concentric hypertrophy. Systolic function is normal with an estimated ejection fraction of 66%, by biplane method of discs. There is grade 2 diastolic dysfunction increased filling pressures and reduced tissue Dopplervelocities. No LV thrombus was visualized with use of Lumason contrast. Right ventricle is normal in size. Right ventricular systolic function is normal (tricuspid annular planar systolic excursion is 2.0 cm). Left atrium is enlarged. Right atrium is grossly normal in size. Aortic valve is trileaflet. Mild calcification of aortic valve leaflets. Aortic sclerosis is present. No aortic regurgitation. Mitral valve with mild annular calcification. No mitral regurgitation. Tricuspid valve leaflets are normal. There is trace tricuspid regurgitation. Estimated right ventricular systolic pressure is 17 mmHg, assuming a right atrial pressure of 3 mmHg. Pulmonic valve appears normal in structure with trace regurgitation. Aortic root is normal for patient's age, gender, and body surface area. Inferior vena cava is normal with >50% respiratory variation in size. No pericardial effusion is seen. When compared to prior study from 07/03/23, no significant change is noted. Encounter Date: 11/09/24XR chest 1 view Narrative EXAM: XR CHEST 1 VIEW DATE: 11/09/2024 11:50 INDICATION: SOB, hypoxia COMPARISON: None TECHNIQUE: AP chest FINDINGS: Lines and tubes: None. Lungs and Pleura: Right lung volume is slightly low. There are are ill-defined interstitial opacities in both lungs, right slightly more pronounced than left, without melody consolidation or other pulmonary or pleural based abnormality. Heart and mediastinum: Prior median sternotomy changes are demonstrated thereare are multiple mediastinal vascular clips. Aortic atherosclerotic calcifications are also noted. Chest wall: Unremarkable. Bones: No acute bony abnormality is identified. IMPRESSION:Right greater than left bronchovascular crowding, with/without superimposed pulmonary edema or developing infection. Report finalized by: Reji Kim MD 11/09/2024 12:59 Assessment/Plan: Assessment & PlanSyncope and collapse -EKG with atrial enlargement, RBBB -Troponins negative, bnp elevated to 500s. No clinical evidence of fluid overload, likely secondary to renal disease and acute syncopal event. - Ordered CT head: Old lacunar infarcts present no acute stroke or bleeding - orthostatic vitals normal - TTE 11/10/24: LVEF 66%, severe concentric hypertrophy, small LV cavity, diastolic dysfunction, no valvular abnormalities - CMRI 11/13/23: findings are in favor of cardiac amyloidosis over hypertrophic cardiomyopathy. Further evaluation with technetium pyrophosphate nuclear imaging studies recommended.(LGE burden of: 10% of the left ventricle). Plan: - PYP, SPEP, UPEP ordered to rule out amyloid. - Continue antihypertensives as below. Holding lisinopril for KATLYN which is resolving - Hold diuretics for now - Event monitor on discharge - Neurology consulted - carotid dopplers ordered, results pending. - f/u recs from neuro. Paroxysmal A-fib (CMS/HCC) ([facility]) - Reported history of Afib, though per [facility] records no documented history of LAAL - Start heparin drip - Will need 30d event monitor and eliquis on discharge. -donor kidney transplant KATLYN (acute kidney injury) ([facility]) - Cr 2.26 at presentation, baseline 1.79 - Discussed with Renal Transplant. Continue home tacrolimus 5/5, MMF, and prednisone 5 mg daily - Hold diuretics for now - Renal US 11/12: Prominent transplant renal sinus fat and subjacent extrarenal extension with masslike appearance associated with upstream mild to moderate hydronephrosis. CT/MR is recommended for further evaluation. - Renal transplant consulted - Renal function worsening on labs today. Started maintenance fluids 50ml/hr. - Renal MRI ordered per txp team recs. Results pending. - Follow up with [facility] Renal Transplant on discharge (has appointment in 2 weeks) Coronary artery disease involving autologous artery coronary bypass graft without angina pectoris - History of CAD s/p CABG in 2023 and PCI to the RCA - No reported symptoms concerning for acute ischemia - Continue home Brilinta Essential hypertension - now with hypotension - Continue home amlodipine 10 mg, labetalol 200 mg twice daily - Holding home lisinopril 5 mg in the setting of KATLYN on CKD. - holding minoxidil due to continued soft bps. Code Status: No Order PATRIC Hitchcock Cosigned by Kenn Rendon MD at 11/17/2024 12:13 PM CDT Associated attestation - Kenn Rendon MD - 11/17/2024 12:13 PM CDT Images from the original note were not included. I saw and examined the patient with Salena Mcnulty on 11-14-2024 and agree withplan and assessment as above. I personally reviewed the labs, diagnostic imaging and documentation and discussed the plan of care with team and patient Cely Myers is a 69 y.o. male patient with has no past medical history on file.. The patient presented to the hospital with syncope. Subjective:No acute events overnight BP 111/71 | Pulse 78 | Temp 36.4 ?C (97.6 ?F) (Temporal) | Resp 20 | Ht 1.753 m (5' 9") | Wt 88.9 kg (195 lb 15.8 oz) | SpO2 97% | BMI 28.94 kg/m? Intake/Output Summary (Last 24 hours) at 11/14/2024 1039Last data filed at 11/13/2024 2248 Gross per 24 hourIntake 563.09 ml Output 50 ml Net 513.09 ml General: alert, oriented, not in distressNeck;no JVD Lungs: Clear to auscultation bilateral, no rales, no wheezes Heart: S1, S2 Abdomen: soft, non tender, non distended, BS+ Extremities: no Lower extremity edema Skin: no rashes Labs:Reviewed Syncope- negative PE. Troponin negative x 2. - rhythm stable. - EKG with atrial enlargement and RBBB. Unknown if new, given no prior records here. - needs holter - CMRI indicating towards amyloid? PYP scan and urine and serum immunofixation. - carotid ultrasound and brain MRI without contrast. - hx of afib? No mention of appendage ligation on the op report. Will discuss with MRI team about the presence of an appendage. Hx of CAD s/p CABG in 2023Hx of PCI to the RCA - hx of NSTEMI with 3 vessel disease from June of 2023 with CABG as noted above - hx of PCI -2024? - unclear why he is on brilinta therapy ESRD s/p renal transplant 2004- at [facility] - recent increase in lasix to 40mg, BID. Hold diuretics. - immunosuppression per the renal team KATLYN- likely due to pre-renal. - baseline Cr around 1.8 - worse today with elevated Cr and U/s showing concern for hydronephrosis on ultrasound. - hydrate today. Renal transplant team following. Significant up trend in his I/Os. - contrast mediated? HTN- on amlodipine 10mg, qday, labetalol 200mg, BID, minxoidil 5mg, BID and lisinopril 5mg, qday. Old lacunar infarcts Borderline dilated ascending aorta 40mm Pulmonary HTN Hx of Afib/flutter- need records from [facility] on why patient not on AC? NSVT- 5 beats Kenn Rendon MD * David Hays MD - 11/13/2024 6:12 PM CDT Images from the original note were not included. NEUROLOGY PROGRESS NOTE Cely Booth Myers Admission Date: 11/09/2024 Length of Stay: 4 Days Neurologic Consultation Date: 11/11/2024 Date of Service: 11/13/24 Reason for Consultation: Syncope NEUROLOGIC PROBLEM LIST: 1. Syncope. 2. Prior history of "strokes" x 2 with pontine stroke likely occurring at the end of last year (2023) and hospitalized as [facility]. 3. Cerebral microvascular ischemic disease. MEDICAL PROBLEM LIST: Strokes x 2. Last 03/2024: Not sure symptoms. Not hospitalized. First: Medical records report 2019. Didn't know it. Second one [facility] ([facility]). Hypertension. Hyperlipidemia. Prediabetes. Coronary artery disease. End-stage renal disease on hemodialysis. History of V. tach (07/07/2023). 13 beats at 6:42 AM. Obstructive sleep apnea not on CPAP. Pyelonephritis/complicated UTI positive for E. coli (01/01/2017). Hepatitis C carrier. History of syphilis (09/11/2016). HSV-2 sero positive. Nephrolithiasis (12/14/2017). History of sepsis with E. coli (12/31/2016). 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 Arthritis. Atopic dermatitis. SURGICAL HISTORY: CABG x 3 on July 08, 2023 at [facility] (per medical record) patient did not remember the number of vessels or the exact timeframe. Renal transplant 2004 (unknown side, medical records suggest right from [facility].). AV fistula in the left arm x many. Status post RCA PCI 2009. Open cholecystectomy. Parathyroidectomy. Liver biopsy. INTERIM: 11/13/2024: Carotid ultrasound: No hemodynamically significant disease. Subjective The patient has no new focal or generalized neurologic symptoms or signs. I once again discussed with the team for the fact that I did not see any need for MRI of the brain at this time given that the patient would need to have global dysfunction for a syncope episode and he has no focal findings nor any at the time of the episode. We once again discussed how a CT angio of the head and neck would be more appropriate if no cardiac etiology is found, but how this would likely also be negative for significant disease. HISTORY OF PRESENT ILLNESS: Cely Myers is a very pleasant 69-year-old, right-handed, -[place] gentleman whose past medical history is significant for, but not limited to; hypertension, hyperlipidemia, prediabetes, coronary artery disease status post coronary artery bypass graft x 3 vessels (per medical record). end-stage renal disease status post right DDRT (per medical record), obstructive sleep apnea, history of prior sepsis with E. coli, recurrent UTIs, polyclonal gammopathy, arthritis, history of nonsustained V. tach, status post open cholecystectomy, hepatitis C carrier, history of syphilis, nephrolithiasis, and history of prior pontine stroke (presumed 2023) and prior stroke at unknown location, who was sitting at home watching sports on [employer] with a friend and the friend's when he had his first syncopal episode without prodrome. The patient believes he was sitting in the chair or possibly attempting to stand when he was sat back down by his friend. He believes the entire episode lasted "a few minutes". The patient denies any aura, and his friends did not report any tonic-clonic movements at the scene. He also denies any tongue biting, incontinence, or postictal confusion. He notes that when he awakened his friend insisted that he go to to the hospital (he was reluctant). He notes that his friend performed CPR on him, but did not really know how to do it. He states he was life flighted and "I was more scared than I ever was in my life". He recalls feeling lightheaded after the event, to the point where he could barely walk. He denies any previous episodes of syncope, seizure, diplopia, dysarthria, dysphagia or focal motor or sensory symptoms. PRIOR STROKES: It should be noted that the patient is a very poor historian. He reportedly had a stroke in February or March 2024. He believes he was hospitalized at [facility]. When I mention to him that his CT scan shows a chronic infarct in the luis which is a dangerous area and most often caused by small vessel disease, he remembered that they told him it was a very dangerous area when he was hospitalized and that he was very amadou. He also reports that he had a stroke prior to that many years ago. However, he does not remember any of the symptoms with his 1st or 2nd stroke. He believes with the first stroke he may have been hospitalized at [facility] in [place]. SCHEDULED MEDICATIONS: allopurinol, 100 mg, Oral, q AM amLODIPine, 10 mg, Oral, q AM aspirin, 81 mg, Oral, Daily ezetimibe, 10 mg, Oral, q AM [Held by provider] furosemide, 20 mg, Oral, BID labetalol, 200 mg, Oral, q12h [Held by provider] lisinopril, 5 mg, Oral, q AM magnesium sulfate, 1 g, Intravenous, Once minoxidil, 5 mg, Oral, BID mirtazapine, 7.5 mg, Oral, Nightly mycophenolate, 500 mg, Oral, BID Oyster Shell Calcium, 500 mg, Oral, q AM potassium chloride, 20 mEq, Oral, Once pravastatin, 40 mg, Oral, Nightly predniSONE, 5 mg, Oral, q AM sodium chloride, 10 mL, Intravenous, q12h TORREY sucralfate, 1 g, Oral, 4x daily tacrolimus, 5 mg, Oral, BID tamsulosin, 0.8 mg, Oral, Nightly ticagrelor, 90 mg, Oral, q12h TORREY Objective GENERAL EXAMINATION: Last Recorded Vitals Blood pressure (!) 108/53, pulse 78, temperature 36.6 ?C (97.9 ?F), temperature source Oral, resp. rate 22, height 1.753 m (5' 9"), weight 88 kg (194 lb 0.1 oz), SpO2 100%. NEUROLOGIC EXAMINATION: MENTAL STATUS: Awake. Alert. Cooperative. Oriented. Poor historian. Follows all commands. No evidence of left light confusion. SPEECH: Normal. CRANIAL NERVES II-XII: Pupils are 3/3 reactive to 2/2 to light and accommodation. Visual anglin are intact to finger count. Funduscopic examination: Sharp/flat discs. EOMI. No evidence of nystagmus. Sensation equal in all distributions of the trigeminal nerve. [place] strength normal. Facial expression symmetric. Hearing intact bilaterally finger rub. Uvula midline. Tongue midline. Shrug normal. MOTOR: No evidence of pronation or drift. Strength 5/5 in both upper and lower extremities. Tone normal. No evidence of atrophy or fasciculations. SENSORY: Grossly intact to all modalities including light touch, temperature, vibration and proprioception. CEREBELLAR: Normal. Specifically, no evidence of dyssynergia, dysmetria or dysdiadochokinesis. REFLEXES: Symmetric. Hypoactive. Specifically, (right over left), biceps 0/0, triceps 0/0, patella 0/0, Achilles 0/0. Plantar responses: Flexor bilaterally. STATION/GAIT: Deferred. ABBREVIATED LAB : Lab Results Component Value Date WBC 4.78 11/13/2024 Hgb 11.5 (L) 11/13/2024 Hct 35.5 (L) 11/13/2024 Plt Count 172 11/13/2024 Lab Results Component Value Date Creatinine Lvl 2.90 (H) 11/13/2024 BUN 37 (H) 11/13/2024 Sodium Lvl 136 11/13/2024 Potassium Lvl 4.1 11/13/2024 Chloride Lvl 107 11/13/2024 CO2 Lvl 17.8 (L) 11/13/2024 No results found for: "AST", "ALT", "ALKPHOS" Lab Results Component Value Date Calcium Lvl 10.5 11/13/2024 Magnesium 1.96 11/13/2024 Phosphorus Lvl 3.0 11/13/2024 Lab Results Component Value Date PTT 94.5 (H) 11/13/2024 Prothrombin Time (PT) 14.3 11/13/2024 INR 1.09 11/13/2024 RELEVANT NEUROIMAGING: CT BRAIN WO IV CONTRASTResult Date: 11/10/2024 EXAM: CT BRAIN WITHOUT CONTRAST DATE: 11/10/2024 0:01 INDICATION: syncope COMPARISON: None. TECHNIQUE: Axial CT images of the brain were obtained. Sagittal and coronal reformats. IV contrast: None DLP: Refer to CT protocol form FINDINGS: There is no hemorrhage or mass lesion. Age-indeterminate lacunar infarcts involving the bilateral basal ganglia and right luis. The ventricles and sulci are enlarged from chronic brain parenchymal volume loss. Periventricular white matter hypoattenuation is nonspecific but likely represents chronic microvascular ischemic changes. The skull base, calvarium, and included facial bones are unremarkable. Trace left maxillary sinus opacification. Partial opacification of the left mastoid air cells. IMPRESSION: * No acute intracranial hemorrhage or territorial infarct. * Age-indeterminate lacunar infarcts involving the bilateral basal ganglia and right luis. * Chronic parenchymal volume loss and microvascular changes. Report finalized by: Johanne Griffin MD 11/10/2024 0:34 No MRI head results found for the past 12 monthsNo spine imaging results found for the past 12 months Transthoracic echo (TTE) complete Result Date: 11/10/2024 Intravenous contrast (Lumason) was used to enhance endocardial border definition. There is severe concentric hypertrophy. Systolic function is normal with an estimated ejection fraction of 66%, by biplane method of discs. There is grade 2 diastolic dysfunction increased filling pressures and reduced tissue Dopplervelocities. No LV thrombus was visualized with use of Lumason contrast. Right ventricle is normal in size. Right ventricular systolic function is normal (tricuspid annular planar systolic excursion is 2.0 cm). Left atrium is enlarged. Right atrium is grossly normal in size. Aortic valve is trileaflet. Mild calcification of aortic valve leaflets. Aortic sclerosis is present. No aortic regurgitation. Mitral valve with mild annular calcification. No mitral regurgitation. Tricuspid valve leaflets are normal. There is trace tricuspid regurgitation. Estimated right ventricular systolic pressure is 17 mmHg, assuming a right atrial pressure of 3 mmHg. Pulmonic valve appears normal in structure with trace regurgitation. Aortic root is normal for patient's age, gender, and body surface area. Inferior vena cava is normal with >50% respiratory variation in size. No pericardial effusion is seen. When compared to prior study from 07/03/23, no significant change is noted. All relevant neuroimaging located on this EMR has either been currently or previously reviewed by me. NEUROLOGIC IMPRESSION & RECOMMENDATIONS:IMPRESSION: 1. Syncope. 2. Prior history of "strokes" x 2 with pontine stroke likely occurring at the end of last year (2023) and hospitalized as [facility]. 3. Cerebral microvascular ischemic disease. DISCUSSION:The patient has no new focal or generalized neurologic symptoms or signs. I once again discussed with the team for the fact that I did not see any need for MRI of the brain at this time given that the patient would need to have global dysfunction for a syncope episode and he has no focal findings nor any at the time of the episode. We once again discussed how a CT angio of the head and neck would be more appropriate if no cardiac etiology is found, but how this would likely also be negative for significant disease. RECOMMENDATION:1. Can consider CT angio of the head and neck if no cardiac etiology found. Sections of this note may have been created using the [employer] voice-recognition transcribing system. Typographical errors and incorrect words or phrases may have been missed during proofreading. Please interpret accordingly. * Shayy Carrasco NP - 11/13/2024 9:51 AM CDT Subjective Patient looks well, no complaints. Sitting up in bedside chair. Will check a post void residual. Will follow up with MRI abd/pelvis for hydronephrosis on U/S. Objective Last Recorded Vitals Blood pressure 126/67, pulse 82, temperature 36.4 ?C (97.5 ?F), temperature source Oral, resp. rate 18, height 1.753 m (5' 9"), weight 88 kg (194 lb 0.1 oz), SpO2 99%. Body mass index is 28.65 kg/m?. Physical Exam:Constitutional: Appearance: Normal appearance. HENT: Head: Normocephalic and atraumatic. Nose: Nose normal. Mouth/Throat: Mouth: Mucous membranes are moist. Pharynx: Oropharynx is clear. Eyes:Pupils: Pupils are equal, round, and reactive to light. Cardiovascular:Rate and Rhythm: Normal rate. Pulmonary: Effort: Pulmonary effort is normal. Abdominal: General: Abdomen is flat. There is no distension. Tenderness: There is no abdominal tenderness. Musculoskeletal:General: No swelling. Normal range of motion. Cervical back: Normal range of motion. Skin:General: Skin is warm and dry. Capillary Refill: Capillary refill takes less than 2 seconds. Neurological:General: No focal deficit present. Mental Status: He is alert and oriented to person, place, and time. Mental status is at baseline. Psychiatric:Mood and Affect: Mood normal. Behavior: Behavior normal. Cely Myers is a 69 y.o. male with PMH significant for CAD s/p CABG in 2023, ESRD s/p DDRT, prediabetes, and HTN who presented to the ED due to syncopal episode at home witnessed by friend. Allograft FunctionDDRT 2004 KATLYN on CKD Baseline creatinine is repotedly around 1.8 Patient presented with a Cr. Of 2.2, although it is slowly returning to baseline. The etiology of this KATLYN is most likely pre-renal injury in the setting of possible hypotension. - UA shows proteinuria. No UTI - Transplant ultrasound shows no renal transplant Doppler/flow abnormalities. Prominent transplant renal sinus fat and subjacent extrarenal extension with masslike appearance associated with upstream mild to moderate hydronephrosis. - Will follow up hydronephrosis with MRI and check for post void residual. - Ensure all medications are being dosed for eGFR -Avoid further nephrotoxins, contrast, NSAIDs - Please chart strict I/Os Maintenance ImmunosuppressionPatient has a history of 2 reported previous rejection episodes years ago, but denies any recent rejection episodes. Patient endorses compliance and does not report missing any doses. Home regimen: tacrolimus 5mg BID, Cellcept 500mg BID, Prednisone 5mg Daily - Please continue home regimen; no need to hold IS. - Please order daily tacrolimus troughs while admitted SyncopeCardiology and neurologic workup remain pending - Agree with holding diuretics for now - Recommended checking orthostatics and a serum uric acid to evaluate for volume depletion. Orthostatics are negative and he does not appear to be volume depleted on exam. Patient discussed with Dr. Roshan Carrasco, PARANORMAL INVESTIGATOR, AGACNP-BCUT Transplant Nephrology and Surgery Assessment & Plan Syncope and collapse Coronary artery disease involving autologous artery coronary bypass graftwithout angina pectoris Essential hypertension -donor kidney transplant KATLYN (acute kidney injury) (HCC) Paroxysmal A-fib (CMS/HCC) (HCC) Current Diet: Adult Diet Heart Healthy * PATRIC Hitchcock - 11/13/2024 6:22 AM CDT AHF Progress Note Date: 11/13/2024 Referring Provider: No ref. provider found, PCP Chief Complaint: Syncope and Weakness, Gen History of Present Illness: Cely Myers is a 69 y.o. male with PMH significant for CAD s/p CABG in 2023, ESRD s/p DDRT, prediabetes, and HTN who presented to the ED due to syncopal episode at home witnessed by friend. Patient not note any prodromal symptoms and says that he blacked out upon standing. He thinks he lost consciousness for around 1 to 2 minutes before coming to. EMS was called at which point patient was awake and responsive and brought to the emergency room. Initially attempted transfer to [facility] in [place] where patient underwent a renal transplant in 2004 but was not excepted due to capacity. Cardiology called due to concern for cardiac contribution to syncopal event. Patient denies any chest pain, palpitations, dyspnea, orthopnea, lightheadedness, or dizziness. This is the first time that he has had a syncopal episode that he remembers. He had a previous CABG in 2023. He denies any other significant cardiac history. The only symptoms he notes is that he has had reduced activity capacity as he gets more winded than normal but he attributes this to age. He denies any chest pain or pressure with exertion. He endorses good medication compliance and upon chart review he had a recent medication change for his Lasix was doubled from 20 mg twice a day to 40 mg twice a day. Last echo on file was done in June 2019 for which showed EF of 50 to 55%. Hada severely dilated left atrium. No significant aortic stenosis but did have noted tricuspid regurgitation. Subjective:No acute events overnight Review of Systems:All systems were reviewed and were negative unless otherwise stated above. Medications: Current Facility-Administered Medications:allopurinol (Zyloprim) tablet 100 mg, 100 mg, Oral, q AM, Cooper Augustin MD, 100 mg at 11/13/24 0600 amLODIPine (Norvasc) tablet 10 mg, 10 mg, Oral, q AM, Cooper Augustin MD, 10 mg at 11/13/24 0600 aspirin chewable tablet 81 mg, 81 mg, Oral, Daily, Kenn Rendon MD, 81 mg at 11/12/24 0808 ezetimibe (Zetia) tablet 10 mg, 10 mg, Oral, q AM, Cooper Augustin MD, 10 mg at 11/13/24 0600 [Held by provider] furosemide (Lasix) tablet 20 mg, 20 mg, Oral, BID, Cooper Augustin MD, 20 mg at 11/10/24 0904 heparin 50 units/mL in sodium chloride 0.45 %, 0.1-40 Units/kg/hr, Intravenous, Continuous, Isaiah Cruz MD, Last Rate: 22.8 mL/hr at 11/13/24 0400, 13 Units/kg/hr at 11/13/24 0400 labetalol (Normodyne) tablet 200 mg, 200 mg, Oral, q12h, Cooper Augustin MD, 200 mg at 11/12/24 2017 [Held by provider] lisinopril tablet 5 mg, 5 mg, Oral, q AM, Cooper Augustin MD magnesium sulfate in D5W IVPB 1 g, 1 g, Intravenous, Once, Gerardo Hoffman MD minoxidil (Loniten) tablet 5 mg, 5 mg, Oral, BID, Cooper Augustin MD, 5 mg at 11/12/24 1700 mirtazapine (Remeron) tablet 7.5 mg, 7.5 mg, Oral, Nightly, Cooper Augustin MD, 7.5 mg at 11/12/24 2018 mycophenolate (Cellcept) capsule 500 mg, 500 mg, Oral, BID, Isaiah Cruz MD, 500 mg at 11/12/24 1700 Oyster Shell Calcium tablet 500 mg of elemental calcium, 500 mg, Oral, q AM, Sara Live MD, 500 mg of elemental calcium at 11/12/24 0620 potassium chloride CR (Klor-Con M20) ER tablet 20 mEq, 20 mEq, Oral, Once, Gerardo Hoffman MD pravastatin (Pravachol) tablet 40 mg, 40 mg, Oral, Nightly, Cooper Augustin MD, 40 mg at 11/12/242017 predniSONE (Deltasone) tablet 5 mg, 5 mg, Oral, q AM, Cooper Augustin MD, 5 mg at 11/13/24 0600 sodium chloride (NS) 0.9 % flush 10 mL, 10 mL, Intravenous, q12h TORREY, Cooper Augustin MD, 10 mL at 11/12/242017 sodium chloride (NS) 0.9 % flush 10 mL, 10 mL, Intravenous, PRN, Cooper Augustin MD sucralfate (Carafate) tablet 1 g, 1 g, Oral, 4x daily, Cooper Augustin MD, 1 g at 11/12/242017 tacrolimus (Prograf) capsule 5 mg, 5 mg, Oral, BID, Cooper Augustin MD, 5 mg at 11/13/24 0554 tamsulosin (Flomax) 24 hr capsule 0.8 mg, 0.8 mg, Oral, Nightly, Cooper Augustin MD, 0.8 mg at 11/12/242017 ticagrelor (Brilinta) tablet 90 mg, 90 mg, Oral, q12h TORREY, Cooper Augustin MD, 90 mg at 11/12/242017 Objective: Physical Exam:BP 121/70 | Pulse 81 | Temp 36.3 ?C (97.3 ?F) (Oral) | Resp 21 | Ht 1.753 m (5' 9") | Wt 88 kg (194 lb 0.1 oz) | SpO2 97% | BMI 28.65 kg/m? I/O last 3 completed shifts: In: 2327.4 (26.6 mL/kg) [P.O.:2280; I.V.:27.4 (0.3 mL/kg); IV Piggyback:20] Out: 540 (6.2 mL/kg) [Urine:540 (0.2 mL/kg/hr)] Weight: 87.6 kg General: alert, oriented, not in distress Head/mouth: oral mucosa moist, normal conjuntiva, normal eye movements Neck; supple, normal thyroid, no JVD Chest: no lesions, normal excursion Lungs: Clear to auscultation bilateral, no rales, no wheezes Heart: RHYTHM: RRR, no gallop, no rub, no murmur Abdomen: soft, non tender, non distended, BS+ Extremities: no Lower extremity edema, symmetric, normal distal pulses Skin: no rashes Laboratory Data:Results from last 7 days Lab Units 11/13/24 0051 11/12/24 1702 11/12/24 0614 11/11/24 0553 11/10/24 0441 11/09/24 2219 11/09/24 1127 SODIUM mEq/L -- -- 139 140 138 137 138 POTASSIUM mEq/L -- -- 4.1 3.9 3.5 3.9 4.0 CHLORIDE mEq/L -- -- 108* 109* 109* 110* 108* CO2 mEq/L -- -- 19.4* 20.5 25.0 23.8 24.8 BUN mg/dL -- -- 28* 22 20 20 21 CREATININE mg/dL -- -- 2.26* 1.99* 1.97* 2.04* 2.26* GLUCOSE mg/dL -- -- 91 84 101* 108* 108* CALCIUM mg/dL -- -- 10.4 10.1 9.8 9.7 9.6 MAGNESIUM mg/dL -- -- 1.94 1.88 1.89 -- 1.61 PHOSPHORUS mg/dL -- -- 2.4 2.0* 2.4 -- 2.3* WBC 10*3/uL -- 6.13 5.22 5.42 -- 5.21 6.04 HEMOGLOBIN g/dL -- 12.7 12.9 12.4 -- 11.4* 10.6* PLATELETS 10*3/uL -- 189 177 214 -- 151* 157* BNP pg/mL -- -- -- -- -- -- 446* TACROLIMUS LVL ng/mL -- -- 9.0 6.0 7.1 -- -- INR 1.12 1.00 -- -- -- -- -- Transthoracic echo (TTE) completeResult Date: 11/10/2024 Intravenous contrast (Lumason) was used to enhance endocardial border definition. There is severe concentric hypertrophy. Systolic function is normal with an estimated ejection fraction of 66%, by biplane method of discs. There is grade 2 diastolic dysfunction increased filling pressures and reduced tissue Dopplervelocities. No LV thrombus was visualized with use of Lumason contrast. Right ventricle is normal in size. Right ventricular systolic function is normal (tricuspid annular planar systolic excursion is 2.0 cm). Left atrium is enlarged. Right atrium is grossly normal in size. Aortic valve is trileaflet. Mild calcification of aortic valve leaflets. Aortic sclerosis is present. No aortic regurgitation. Mitral valve with mild annular calcification. No mitral regurgitation. Tricuspid valve leaflets are normal. There is trace tricuspid regurgitation. Estimated right ventricular systolic pressure is 17 mmHg, assuming a right atrial pressure of 3 mmHg. Pulmonic valve appears normal in structure with trace regurgitation. Aortic root is normal for patient's age, gender, and body surface area. Inferior vena cava is normal with >50% respiratory variation in size. No pericardial effusion is seen. When compared to prior study from 07/03/23, no significant change is noted. Encounter Date: 11/09/24XR chest 1 view Narrative EXAM: XR CHEST 1 VIEW DATE: 11/09/2024 11:50 INDICATION: SOB, hypoxia COMPARISON: None TECHNIQUE: AP chest FINDINGS: Lines and tubes: None. Lungs and Pleura: Right lung volume is slightly low. There are are ill-defined interstitial opacities in both lungs, right slightly more pronounced than left, without melody consolidation or other pulmonary or pleural based abnormality. Heart and mediastinum: Prior median sternotomy changes are demonstrated thereare are multiple mediastinal vascular clips. Aortic atherosclerotic calcifications are also noted. Chest wall: Unremarkable. Bones: No acute bony abnormality is identified. IMPRESSION:Right greater than left bronchovascular crowding, with/without superimposed pulmonary edema or developing infection. Report finalized by: Reji Kim MD 11/09/2024 12:59 Assessment/Plan: Assessment & PlanSyncope and collapse -EKG with atrial enlargement, RBBB -Troponins negative, bnp elevated to 500s. No clinical evidence of fluid overload, likely secondary to renal disease and acute syncopal event. - Ordered CT head: Old lacunar infarcts present no acute stroke or bleeding - orthostatic vitals normal - TTE 11/10/24: LVEF 66%, severe concentric hypertrophy, small LV cavity, diastolic dysfunction, no valvular abnormalities - CMRI 11/13/23: findings are in favor of cardiac amyloidosis over hypertrophic cardiomyopathy. Further evaluation with technetium pyrophosphate nuclear imaging studies recommended.(LGE burden of: 10% of the left ventricle). Plan: - PYP, SPEP, UPEP ordered - Continue antihypertensives as below. Holding lisinopril for KATLYN which is resolving - Hold diuretics for now - Event monitor on discharge - Neurology consulted - MRI brain and carotid dopplers ordered, results pending. - f/u recs from neuro. Paroxysmal A-fib (CMS/HCC) ([facility]) - Reported history of Afib, though per [facility] records no documented history of LAAL - Start heparin drip -donor kidney transplant KATLYN (acute kidney injury) ([facility]) - Cr 2.26 at presentation, baseline 1.79 - Discussed with Renal Transplant. Continue home tacrolimus 5/5, MMF, and prednisone 5 mg daily - Hold diuretics for now - Renal US 11/12: Prominent transplant renal sinus fat and subjacent extrarenal extension with masslike appearance associated with upstream mild to moderate hydronephrosis. CT/MR is recommended for further evaluation. - Renal transplant consulted - Renal US ordered per txp team recs. Results pending. - Follow up with [facility] Renal Transplant on discharge (has appointment in 2 weeks) Coronary artery disease involving autologous artery coronary bypass graft without angina pectoris - History of CAD s/p CABG in 2023 and PCI to the RCA - No reported symptoms concerning for acute ischemia - Continue home Brilinta Essential hypertension - BP controlled at time of admission - Will continue home amlodipine 10 mg, labetalol 200 mg twice daily, minoxidil 5 mg twice daily - Holding home lisinopril 5 mg in the setting of KATLYN on CKD, will possibly require holding additional medications depending on blood pressure trend and results of orthostatic vitals. Code Status: No Order PATRIC Hitchcock Cosigned by Kenn Rendon MD at 11/17/2024 12:12 PM CDT Associated attestation - Kenn Rendon MD - 11/17/2024 12:12 PM CDT I saw and examined the patient with Salena Mcnulty on 11-13-2024 and agree with plan and assessment as above. I personally reviewed the labs, diagnostic imaging and documentation and discussed the plan of care with team and patient Cely Myers is a 69 y.o. male patient with has no past medical history on file.. The patient presented to the hospital with syncope. Subjective:No acute events overnight BP 126/67 | Pulse 82 | Temp 36.4 ?C (97.5 ?F) (Oral) | Resp 18 | Ht 1.753 m (5' 9") | Wt 88 kg (194 lb 0.1 oz) | SpO2 99% | BMI 28.65 kg/m? Intake/Output Summary (Last 24 hours) at 11/13/2024 1006Last data filed at 11/13/2024 0800 Gross per 24 hourIntake 916.56 ml Output 550 ml Net 366.56 ml General: alert, oriented, not in distressNeck;no JVD Lungs: Clear to auscultation bilateral, no rales, no wheezes Heart: S1, S2 Abdomen: soft, non tender, non distended, BS+ Extremities: no Lower extremity edema Skin: no rashes Labs:Reviewed Syncope- negative PE. Troponin negative x 2. - rhythm stable. - EKG with atrial enlargement and RBBB. Unknown if new, given no prior records here. - needs holter - CMRI indicating towards amyloid? PYP scan and urine and serum immunofixation. - carotid ultrasound and brain MRI without contrast. - hx of afib? No mention of appendage ligation on the op report. Will discuss with MRI team about the presence of an appendage. Hx of CAD s/p CABG in 2023Hx of PCI to the RCA - hx of NSTEMI with 3 vessel disease from June of 2023 with CABG as noted above - hx of PCI -2024? - unclear why he is on brilinta therapy ESRD s/p renal transplant 2004- at [facility] - recent increase in lasix to 40mg, BID. Hold diuretics. - immunosuppression per the renal team KATLYN- likely due to pre-renal. - baseline Cr around 1.8 - worse today with elevated Cr and U/s showing concern for hydronephrosis. HTN- on amlodipine 10mg, qday, labetalol 200mg, BID, minxoidil 5mg, BID and lisinopril 5mg, qday. Old lacunar infarcts Borderline dilated ascending aorta 40mm Pulmonary HTN Hx of Afib/flutter- need records from [facility] on why patient not on AC? Kenn Rendon MD * Stephanie Farley, OT - 11/12/2024 2:47 PM CDT Evaluation and Treatment Patient Name: Cely Myers Today's Date: 11/12/2024 Preferred Language: Macedonian Assessment & Plan Cely Myers is a 69 y.o. male with PMH significant for CAD s/p CABG in 2023, ESRD s/p DDRT, prediabetes, and HTN who presented to the ED due to syncopal episode at home witnessed by friend. Assessment: Pt is currently performing ADL and functional ambulation independently. Pt noted with good safety awareness during OOB FA. No skilled OT services. OT WILL SIGN OFF. Plan: OT Plan: No skilled OT Subjective "I feel fine now." Objective Pt presented in semi-crockett's, agreeable to OT evaluation. Pt transferred EOB independently. Pt stood and ambulated to sink in room without assistance, no LOB noted. Pt stood at sink for g/h, no LOB noted. Pt brushed teeth independently. Pt ambulated blaise<>window x2 no LOB. OT edu pt on fall prevention and safety in home environment. Pt verbalized understanding. Pt transferred to recliner independently. Pt left seated in recliner, MD now present, VSS, all needs met. Precautions: UE Weight Bearing Status: (fwb) Cognition: Overall Cognitive Status: Within Functional Limits Behavior/Cognition: Alert, Cooperative Orientation Level: Oriented X4 Home Living: Type of Home: House Lives With: Other (Comment) (Grandson (19 yo)) Home Layout: One level Bathroom Shower/Tub: Tub/shower unit Prior Function: ADL Assistance: Independent Homemaking Assistance: Independent Self Care (ADL): Grooming Assistance: Independent Mobility/Transfers: Bed Mobility Bed Mobility Bed Mobility: Yes Bed Mobility 1 Level of Assistance 1: Independent Bed Mobility To/From: Supine to sit on EOB Transfer Transfers Transfer: Yes Transfer 1 Level of Assistance 1: Independent Transfer To/From: Gzl-ut-Fdigg/Lrhuq-[id number], Bed, Chair OT General Assessments: Activity Tolerance Activity Tolerance Endurance: Endurance does not limit participation in activity Sensation Sensation Light Touch: RUE Intact, LUE Intact Extremity Assessments: Right Upper Extremity RUE Assessment RUE Assessment: Within Functional Limits Left Upper Extremity LUE AssessmentLUE Assessment: Within Functional Limits Treatment:Self-Care: Grooming Assistance: Independent Bed Mobility:Bed Mobility Bed Mobility: Yes Bed Mobility 1 Level of Assistance 1: Independent Bed Mobility To/From: Supine to sit on EOB Transfers:Transfers Transfer: Yes Transfer 1 Level of Assistance 1: Independent Transfer To/From: Llq-ki-Rauyy/Cpeoe-cv-Vjg, Bed, Chair Therapeutic ActivityTherapeutic Activity Time Entry: 10 Therapeutic Activity 1: edu MobilityHighest Level of Mobility Performed (JH-HLM): Walked 10 steps or more (i.e. walked to restroom) Treatment Note: If this is the last documented treatment, then it will signify discharge from acute care prior to discharge from the therapy service and will serve as the discharge summary. Stephanie Farley OT * Anitha Acosta RN - 11/12/2024 12:00 PM CDT CASE MANAGEMENT ROUTINE DISCHARGE PLAN NOTE LOS: 3 Barriers to Discharge: Pending cMRI to evaluate for hypertrophic cardiomyopathy Continue antihypertensives but holding lisinopril for KATLYN which is resolving. Hold diuretics for now. Event monitor on discharge. DISCHARGE PLAN A: home-pt is independent and driving. DISCHARGE PLAN B: as above ANAYELI: 2-3 days * Asaf Agarwal NP - 11/12/2024 11:59 AM CDT Subjective Seen and examined this morning. Now new complaints. Patient remains pending cardiac workup to evaluate for hypertrophic cardiomyopathy Objective Last Recorded Vitals Blood pressure 111/76, pulse 65, temperature 36.4 ?C (97.5 ?F), temperature source Oral, resp. rate 16, height 1.753 m (5' 9"), weight 87.6 kg (193 lb 2 oz), SpO2 98%. Body mass index is 28.52 kg/m?. Physical Exam:Constitutional: Appearance: Normal appearance. HENT: Head: Normocephalic and atraumatic. Nose: Nose normal. Mouth/Throat: Mouth: Mucous membranes are moist. Pharynx: Oropharynx is clear. Eyes:Pupils: Pupils are equal, round, and reactive to light. Cardiovascular:Rate and Rhythm: Normal rate. Pulmonary: Effort: Pulmonary effort is normal. Abdominal: General: Abdomen is flat. There is no distension. Tenderness: There is no abdominal tenderness. Musculoskeletal:General: No swelling. Normal range of motion. Cervical back: Normal range of motion. Skin:General: Skin is warm and dry. Capillary Refill: Capillary refill takes less than 2 seconds. Neurological:General: No focal deficit present. Mental Status: He is alert and oriented to person, place, and time. Mental status is at baseline. Psychiatric:Mood and Affect: Mood normal. Behavior: Behavior normal. Cely Myers is a 69 y.o. male with PMH significant for CAD s/p CABG in 2023, ESRD s/p DDRT, prediabetes, and HTN who presented to the ED due to syncopal episode at home witnessed by friend. Allograft FunctionDDRT 2005 KATLYN on CKD Baseline creatinine is repotedly around 1.8 Patient presented with a Cr. Of 2.2, although it is slowly returning to baseline. The etiology of this KATLYN is most likely pre-renal injury in the setting of possible hypotension. - Recommend obtaining a UA. - Suggest checking a renal transplant ultrasound - Ensure all medications are being dosed for eGFR -Avoid further nephrotoxins, contrast, NSAIDs - Please chart strict I/Os Maintenance ImmunosuppressionPatient has a history of 2 reported previous rejection episodes years ago, but denies any recent rejection episodes. Patient endorses compliance and does not report missing any doses. Home regimen: tacrolimus 5mg BID, Cellcept 500mg BID, Prednisone 5mg Daily - Please continue home regimen; no need to hold IS. - Please order daily tacrolimus troughs while admitted SyncopeCardiology and neurologic workup remain pending - Agree with holding diuretics for now - Recommended checking orthostatics and a serum uric acid to evaluate for volume depletion. Orthostatics are negative and he does not appear to be volume depleted on exam. Patient discussed with Dr. Islas Assessment & Plan Syncope and collapse Coronary artery disease involving autologous artery coronary bypass graftwithout angina pectoris Essential hypertension -donor kidney transplant KATLYN (acute kidney injury) (HCC) Current Diet: Adult Diet Heart Healthy Cosigned by Kalyn Islas MD at 11/12/2024 2:02 PM CDT Associated attestation - Kalyn Islas MD - 11/12/2024 2:02 PM CDT Transplant Nephrology Attending Attestation: Please obtain U/A and renal ultrasound. Appears initial KATLYN was likely 2/2 volume depletion in setting of poor PO intake/diarrhea/diuretic use, however creatinine has bumped again today. Of note he did received contrast w/ CT scan on 11/09 so this could be to blame. Please obtain U/A and renal ultrasound. Check tac trough daily. I personally examined the patient and reviewed the interim history, physical exam, laboratory, and imaging as detailed in the Asaf Agarwal's note. The documentation reflects our collaborative assessment and plan. Assessment and plan discussed with Dr. Montalvo. Kalyn Islas M.D.Transplant Nephrology * David Hays MD - 11/12/2024 6:54 AM CDT Images from the original note were not included. NEUROLOGY PROGRESS NOTE Cely Booth Myers Admission Date: 11/09/2024 Length of Stay: 3 Days Neurologic Consultation Date: 11/11/2024 Date of Service: 11/12/24 Reason for Consultation: Syncope NEUROLOGIC PROBLEM LIST: 1. Syncope. 2. Prior history of "strokes" x 2 with pontine stroke likely occurring at the end of last year (2023) and hospitalized as [facility]. 3. Cerebral microvascular ischemic disease. MEDICAL PROBLEM LIST: Strokes x 2. Last 03/2024: Not sure symptoms. Not hospitalized. First: Medical records report 2019. Didn't know it. Second one luis ([facility]). Hypertension. Hyperlipidemia. Prediabetes. Coronary artery disease. End-stage renal disease on hemodialysis. History of V. tach (07/07/2023). 13 beats at 6:42 AM. Obstructive sleep apnea not on CPAP. Pyelonephritis/complicated UTI positive for E. coli (01/01/2017). Hepatitis C carrier. History of syphilis (09/11/2016). HSV-2 sero positive. Nephrolithiasis (12/14/2017). History of sepsis with E. coli (12/31/2016). 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 Arthritis. Atopic dermatitis. SURGICAL HISTORY: CABG x 3 on July 08, 2023 at [facility] (per medical record) patient did not remember the number of vessels or the exact timeframe. Renal transplant 2004 (unknown side, medical records suggest right from [facility].). AV fistula in the left arm x many. Status post RCA PCI 2009. Open cholecystectomy. Parathyroidectomy. Liver biopsy. INTERIM: Subjective Awaiting completion of cardiac workup. Carotid Dopplers are pending. No new focal or generalized neurologic complaints. HISTORY OF PRESENT ILLNESS: Cely Myers is a very pleasant 69-year-old, right-handed, -Maltese gentleman whose past medical history is significant for, but not limited to; hypertension, hyperlipidemia, prediabetes, coronary artery disease status post coronary artery bypass graft x 3 vessels (per medical record). end-stage renal disease status post right DDRT (per medical record), obstructive sleep apnea, history of prior sepsis with E. coli, recurrent UTIs, polyclonal gammopathy, arthritis, history of nonsustained V. tach, status post open cholecystectomy, hepatitis C carrier, history of syphilis, nephrolithiasis, and history of prior pontine stroke (presumed 2023) and prior stroke at unknown location, who was sitting at home watching sports on [employer] with a friend and the friend's when he had his first syncopal episode without prodrome. The patient believes he was sitting in the chair or possibly attempting to stand when he was sat back down by his friend. He believes the entire episode lasted "a few minutes". The patient denies any aura, and his friends did not report any tonic-clonic movements at the scene. He also denies any tongue biting, incontinence, or postictal confusion. He notes that when he awakened his friend insisted that he go to to the hospital (he was reluctant). He notes that his friend performed CPR on him, but did not really know how to do it. He states he was life flighted and "I was more scared than I ever was in my life". He recalls feeling lightheaded after the event, to the point where he could barely walk. He denies any previous episodes of syncope, seizure, diplopia, dysarthria, dysphagia or focal motor or sensory symptoms. PRIOR STROKES: It should be noted that the patient is a very poor historian. He reportedly had a stroke in February or March 2024. He believes he was hospitalized at [facility]. When I mention to him that his CT scan shows a chronic infarct in the luis which is a dangerous area and most often caused by small vessel disease, he remembered that they told him it was a very dangerous area when he was hospitalized and that he was very amadou. He also reports that he had a stroke prior to that many years ago. However, he does not remember any of the symptoms with his 1st or 2nd stroke. He believes with the first stroke he may have been hospitalized at [facility] in [place]. SCHEDULED MEDICATIONS: allopurinol, 100 mg, Oral, q AM amLODIPine, 10 mg, Oral, q AM aspirin, 81 mg, Oral, Daily ezetimibe, 10 mg, Oral, q AM [Held by provider] furosemide, 20 mg, Oral, BID labetalol, 200 mg, Oral, q12h [Held by provider] lisinopril, 5 mg, Oral, q AM magnesium sulfate, 1 g, Intravenous, Once minoxidil, 5 mg, Oral, BID mirtazapine, 7.5 mg, Oral, Nightly mycophenolate, 500 mg, Oral, BID Oyster Shell Calcium, 500 mg, Oral, q AM potassium chloride, 20 mEq, Oral, Once pravastatin, 40 mg, Oral, Nightly predniSONE, 5 mg, Oral, q AM sodium chloride, 10 mL, Intravenous, q12h TORREY sucralfate, 1 g, Oral, 4x daily tacrolimus, 5 mg, Oral, BID tamsulosin, 0.8 mg, Oral, Nightly ticagrelor, 90 mg, Oral, q12h TORREY Objective GENERAL EXAMINATION: Last Recorded Vitals Blood pressure (!) 122/59, pulse 85, temperature 36.3 ?C (97.3 ?F), resp. rate 12, height 1.753 m (5' 9"), weight 87.6 kg (193 lb 2 oz), SpO2 93%. NEUROLOGIC EXAMINATION: MENTAL STATUS: Awake. Alert. Cooperative. Oriented. Poor historian. Follows all commands. No evidence of left light confusion. SPEECH: Normal. CRANIAL NERVES II-XII: Pupils are 3/3 reactive to 2/2 to light and accommodation. Visual anglin are intact to finger count. Funduscopic examination: Sharp/flat discs. EOMI. No evidence of nystagmus. Sensation equal in all distributions of the trigeminal nerve. [place] strength normal. Facial expression symmetric. Hearing intact bilaterally finger rub. Uvula midline. Tongue midline. Shrug normal. MOTOR: No evidence of pronation or drift. Strength 5/5 in both upper and lower extremities. Tone normal. No evidence of atrophy or fasciculations. SENSORY: Grossly intact to all modalities including light touch, temperature, vibration and proprioception. CEREBELLAR: Normal. Specifically, no evidence of dyssynergia, dysmetria or dysdiadochokinesis. REFLEXES: Symmetric. Hypoactive. Specifically, (right over left), biceps 0/0, triceps 0/0, patella 0/0, Achilles 0/0. Plantar responses: Flexor bilaterally. STATION/GAIT: Deferred. ABBREVIATED LAB : Lab Results Component Value Date WBC 5.42 11/11/2024 Hgb 12.4 11/11/2024 Hct 39.7 11/11/2024 Plt Count 214 11/11/2024 Lab Results Component Value Date Creatinine Lvl 1.99 (H) 11/11/2024 BUN 22 11/11/2024 Sodium Lvl 140 11/11/2024 Potassium Lvl 3.9 11/11/2024 Chloride Lvl 109 (H) 11/11/2024 CO2 Lvl 20.5 11/11/2024 No results found for: "AST", "ALT", "ALKPHOS" Lab Results Component Value Date Calcium Lvl 10.1 11/11/2024 Magnesium 1.88 11/11/2024 Phosphorus Lvl 2.0 (L) 11/11/2024 No results found for: "PTT", "PT", "INR" RELEVANT NEUROIMAGING: CT BRAIN WO IV CONTRAST Result Date: 11/10/2024 EXAM: CT BRAIN WITHOUT CONTRAST DATE: 11/10/2024 0:01 INDICATION: syncope COMPARISON: None. TECHNIQUE: Axial CT images of the brain were obtained. Sagittal and coronal reformats. IV contrast: None DLP: Refer to CT protocol form FINDINGS: There is no hemorrhage or mass lesion. Age-indeterminate lacunar infarcts involving the bilateral basal ganglia and right luis. The ventricles and sulci are enlarged from chronic brain parenchymal volume loss. Periventricular white matter hypoattenuation is nonspecific but likely represents chronic microvascular ischemic changes. The skull base, calvarium, and included facial bones are unremarkable. Trace left maxillary sinus opacification. Partial opacification of the left mastoid air cells. IMPRESSION: * No acute intracranial hemorrhage or territorial infarct. * Age-indeterminate lacunar infarcts involving the bilateral basal ganglia and right luis. * Chronic parenchymal volume loss and microvascular changes. Report finalized by: Johanne Griffin MD 11/10/2024 0:34 No MRI head results found for the past 12 months No spine imaging results found for the past 12 months Transthoracic echo (TTE) complete Result Date: 11/10/2024 Intravenous contrast (Lumason) was used to enhance endocardial border definition. There is severe concentric hypertrophy. Systolic function is normal with an estimated ejection fraction of 66%, by biplane method of discs. There is grade 2 diastolic dysfunction increased filling pressures and reduced tissue Dopplervelocities. No LV thrombus was visualized with use of Lumason contrast. Right ventricle is normal in size. Right ventricular systolic function is normal (tricuspid annular planar systolic excursion is 2.0 cm). Left atrium is enlarged. Right atrium is grossly normal in size. Aortic valve is trileaflet. Mild calcification of aortic valve leaflets. Aortic sclerosis is present. No aortic regurgitation. Mitral valve with mild annular calcification. No mitral regurgitation. Tricuspid valve leaflets are normal. There is trace tricuspid regurgitation. Estimated right ventricular systolic pressure is 17 mmHg, assuming a right atrial pressure of 3 mmHg. Pulmonic valve appears normal in structure with trace regurgitation. Aortic root is normal for patient's age, gender, and body surface area. Inferior vena cava is normal with >50% respiratory variation in size. No pericardial effusion is seen. When compared to prior study from 07/03/23, no significant change is noted. All relevant neuroimaging located on this EMR has either been currently or previously reviewed by me. NEUROLOGIC IMPRESSION & RECOMMENDATIONS: IMPRESSION: 1. Syncope. 2. Prior history of "strokes" x 2 with pontine stroke likely occurring at the end of last year (2023) and hospitalized as [facility]. 3. Cerebral microvascular ischemic disease. DISCUSSION: Awaiting completion of cardiac workup. Carotid Dopplers are pending. No new focal or generalized neurologic complaints. RECOMMENDATION: 1. Bilateral carotid ultrasound. 2. Cardiac workup as you are doing. 3. If no cardiac source found, can consider either CT angio of the head and neck (will likely be negative but most appropriate, and/or stroke limited MRI of the brain without contrast (currently no evidence for new intracranial disease). Sections of this note may have been created using the [employer] voice-recognition transcribing system. Typographical errors and incorrect words or phrases may have been missed during proofreading. Please interpret accordingly. * Sue Smith, PT - 11/11/2024 3:35 PM CDT Evaluation and Treatment Note Patient Name: Cely Myers Today's Date: 11/11/2024 Preferred Language: Macedonian Start Time: 1250 Stop Time: 1318 Time Calculation (min): 28 min Assessment & Plan Assessment: Evaluation/Treatment Tolerance: Patient tolerated treatment well Pt is a 69 y.o. male with PMH significant for CAD s/p CABG in 2023, ESRD s/p DDRT, prediabetes, and HTN who presented to the ED due to syncopal episode at home witnessed by friend. Presents today for PT evaluation. He is mobilizing independent, BP stable throughout and he was asymptomatic. He does not appear to have any PT needs. We will sign off. Plan: PT Plan: No skilled PT No Skilled PT: At baseline function PT- Okay to Discharge from Therapy: Yes Subjective "It feels good to walk." Pain: 0/10 Home Living: Type of Home: House Admitted From: Home Lives With: (19 y.o. grandson) Home Layout: One level Prior Level of Function: Level of [place]: (Pt was fully independent, driving) Objective General Visit Information: Pt found supine in bed, BP 161/81, HR 77. Came to sitting on EOB. BP 154/92, HR 81. Pt stood, BP 162/91 HR 85. He amb in hallway without difficulty, returned to room and sat in chair. BP 163/83, HR 78. Nsg aware of pt's status. Precautions: Medical Precautions: fall, universal Cognition: Overall Cognitive Status: Within Functional Limits Behavior/Cognition: Alert, Cooperative General Assessments: Activity Tolerance Activity Tolerance Endurance: Tolerates 30+ min exercise without fatigue Sensation Sensation Light Touch: RLE Intact, LLE Intact Perception Perception Initiation: Appears intact Motor Planning: Appears intact Coordination Coordination Movements are Fluid and Coordinated: Yes Balance- Sitting Level of Assistance: Independent Balance- Standing Static Standing-Level of Assistance: Independent Functional Assessments: Bed Mobility Bed Mobility 1: Level of Assistance 1: Independent Bed Mobility To/From: Supine to sit on EOB Transfers Transfers 1:Level of Assistance 1: Independent Transfer To/From: Iko-sv-Sijlh/Hmqqn-[id number]-Vht Extremity Assessments:Right Lower Extremity RLE Assessment RLE Assessment: Within Functional Limits Left Lower Extremity LLE AssessmentLLE Assessment: Within Functional Limits Activity Tolerance:Endurance: Tolerates 30+ min exercise without fatigue CognitionOverall Cognitive Status: Within Functional Limits Behavior/Cognition: Alert, Cooperative TreatmentGait training: Gait Training Time Entry: 10 Gait Training Activity 1:Distance (enter in feet): 250' Assistive Devices And Adaptive Equipments: No device Level of Assistance 1: Independent Gait Training Activity 1 Comment: Pt amb with good pace and balance, no major deficits noted AM-PAC Basic Mobility:Turning in bed without bedrails: None Lying on back to sitting on edge of flat bed: None Bed to chair: None Standing up from chair: None Walk in room: None Climbing 3-5 stairs: None Mobility Inpatient Raw Score: 24 JH-HLM Goal: 7 Mobility: Highest Level of Mobility Performed (-HLM)Walked 250 feet or more (i.e. several laps on unit) Patient Education:Education Documentation No documentation found. Education Comments No comments found. Treatment Note: If this is the last documented treatment, then it will signify discharge from acute care prior to discharge from the therapy service and will serve as the discharge summary. Sue Smith PT * Sri Gann RN - 11/11/2024 11:41 AM CDT CASE MANAGEMENT ROUTINE DISCHARGE PLAN NOTE LOS: 2 Barriers to Discharge: Dx: syncopal episode, katlyn on ckd. PMH: kidney transplant 20 years ago, open heart sx 1 year ago. Barriers: 2 L NC oxygen, CHARLINE done, CT head done. DISCHARGE PLAN A/B: home independent ANAYELI: 0-1 day * Sue Rodriguez LCSW - 11/09/2024 3:40 PM CDT RN asked SW to initiate trx for patient to go to [facility] for Nephrology consult and kidney transplant. SW called [facility] trx ctr at [phone] and spoke to [facility]. Patient requested for [facility], but the services he needs would be at [facility]. Acc to Will, both campuses are at capacity. This is deemed a capacity denial @2197. Sue Rodriguez LCSW [id number] 17:15:03Pending Results Scheduled Orders Name Type Priority Associated Diagnoses Order Schedule Basic Metabolic Panel Lab Routine Morning draw (La b) until discontinued starting 11/18/2024, 2 completed Magnesium Level Lab Routine Morning d raw (Lab) until discontinued starting 11/18/2024, 2 completed Phosphorus Level Lab Routine Morning draw (Lab) until discontinued starting 11/18/2024, 2 completed Complete Blood Count w/Diff and Platelet Lab Routine Morning draw (La b) until discontinued starting 11/18/2024, 2 completed Cardiac event monitor Cardiac Services Routine Once for 1 Occurrences starting 11/19/2024 until 11/19/2024 Health Maintenance Due Date Last Done Comments CT Colonography 1956 FIT-DNA 1955 FIT 1955 Medicare Annual Wellness (AWV) 1955 Sigmoidoscopy 1955 Hepatitis A Vaccines (1 of 2 - Risk 2-dose series) 01/24/1975 Zoster Vaccines (1 of 2) 01/24/1975 Hepatitis B Vaccines (1 of 3 - Risk 3-dose series) 2016 Respiratory Syncytial Virus (RSV) Adult Series (1 - Risk 60-74 years 1-dose series) 2016 FOBT 12/28/2017 12/28/2016 Influenza Vaccine (#1) 2024 , 02/12/2023, 02/03/2023, Additional history exists Lipid Panel 11/09/2029 11/09/2024, 04/0 11/2024, 07/03/2023 Colonoscopy 11/07/2030 11/07/2020 Colorectal Cancer Screening 11/07/2030 DTaP/Tdap/Td Vaccines (2 - Td or Tdap) 01/20/2034 01/21/2024 Pneumococcal Vaccine: 50+ Years Completed 10/21/2022, 05/07/2021, 01/27/2012 HIB Vaccines Aged Out No longer eligi ble based on patient's age to complete this topic HPV Vaccines Aged Out No longer eligi ble based on patient's age to complete this topic IPV Vaccines Aged Out No longer eligi ble based on patient's age to complete this topic Meningococcal Vaccine Aged Out No bee savanah eligible based on patient's age to complete this topic Rotavirus Vaccines Aged Out No longer eligible based on patient's age to complete this topic [id number] 17:15:03 Diagnosis Syncope and collapse - Prima ry Dyspnea, unspecified type Coronary artery disease invo lving autologous artery coronary bypass graft without angina pectoris Essential hypertension Unspecified essential hypertension -donor kidney transplant Kidney replaced by transplant KATLYN (acute kidney injury) (H CC) Paroxysmal A-fib (CMS/HCC) ( HCC) [id number] 17:15:03 [id number] 15:13:14 Images from the original note were not included. [id number] Coping with Shortness of Breath: Controlling Stress When you have lung problems, it may be hard for you to breathe. Stress can make it worse. Learn to relax and control stress. This can prevent shortness of breath and panic. When anxiety takes over When you feel short of breath, your neck, shoulder, and chest muscles tense. You become anxious and start to breathe faster. Your breathing muscles get tired and trap air in your lungs. Your chest may feel tight. Anxiety increases and you may start to panic. Stop panic before it starts The andres to controlling panic is to break the cycle before it starts. When you are becoming short of breath, do the following: ? Sit, relaxing your arms and shoulders. ? Lean forward slightly, resting your upper body on your forearms. ? Breathe in slowly through your nose while counting to 2. ? Hold your lips together as if you are trying to whistle or blow out a candle. ? Breathe out slowly and gently through your pursed lips while counting to 4. ? Repeat these steps as needed. Learn to relax Control stress by staying away from things that trigger stress and by relaxing when you start feeling tense. Find a quiet place and sit or lie in a comfortable position. Close your eyes and try the following: ? Take a deep breath in and slowly release it. Repeat this 2 more times. Picture yourself in an ideal place, doing something you enjoy. Stay in that place until you feel relaxed. ? Slowly tense, then relax, each part of your body. Start with your toes and work up to your scalp. As you breathe in, tighten the muscles. Keep them tight for several seconds. Then relax as you breathe out. ? You can also relax by doing thea chi or yoga, praying, meditating, or listening to music or relaxation recordings. Talk with your healthcare provider Tell your healthcare provider how you're feeling. Stress and anxiety can be serious. It's important for your provider to understand what's going on and how it's affecting your life. Talk about what strategies or treatments may be right for you. Last Reviewed Date: 2023 00:00:00 ? [id number] The [employer]. All rights reserved. This information is not intended as a substitute for professional medical care. Always follow your healthcare professional's instructions. [facility] [id number] 15:13:14 Images from the original note were not included. [id number] Allopurinol WHY is this medicine prescribed? Allopurinol is used to treat gout (a type of arthritis in which uric acid, a naturally occurring substance in the body, builds up in the joints and causes sudden attacks of redness, swelling, pain, and heat in one or more joints). Allopurinol is also used to treat high levels of uric acid that builds up in the blood as tumors break down in people with certain types of cancer who are being treated with chemotherapy medications. It is also used to treat kidney stones that have come back in people who have high levels of uric acid in their urine. Allopurinol is in a class of medications called xanthine oxidase inhibitors. It works by reducing the production of uric acid in the body. High levels of uric acid may cause gout attacks or kidney stones. Allopurinol is used to prevent gout attacks, not to treat them once they occur. HOW should this medicine be used? Allopurinol comes as a tablet to take by mouth. It is usually taken once or twice a day, preferably after a meal. To help you remember to take allopurinol, take it around the same time every day. Follow the directions on your prescription label carefully, and ask your doctor or pharmacist to explain any part you do not understand. Take allopurinol exactly as directed. Do not take more or less of it or take it more often than prescribed by your doctor. Your doctor will probably start you on a low dose of allopurinol and gradually increase your dose, not more than once a week. It may take several months or longer before you feel the full benefit of allopurinol. Allopurinol may increase the number of gout attacks during the first few months that you take it, although it will eventually prevent attacks. Your doctor may prescribe another medication such as colchicine to prevent gout attacks for the first few months you take allopurinol. Continue to take allopurinol even if you feel well. Do not stop taking allopurinol without talking to your doctor. Are there OTHER USES for this medicine? This medication may be prescribed for other uses; ask your doctor or pharmacist for more information. What SPECIAL PRECAUTIONS should I follow? Before taking allopurinol, ? tell your doctor and pharmacist if you are allergic to allopurinol, any other medications, or any of the ingredients in allopurinol tablets. Ask your pharmacist for a list of the ingredients. ? tell your doctor and pharmacist what prescription and nonprescription medications, vitamins, nutritional supplements, and herbal products you are taking while you are taking allopurinol. Your doctor may need to change the doses of your medications or monitor you carefully for side effects. ? tell your doctor if you have or have ever had high blood pressure, diabetes, kidney or liver disease, or heart failure. ? tell your doctor if you are , plan to become , or are breast-feeding. If you become while taking allopurinol, call your doctor. ? you should know that allopurinol may make you drowsy. Do not drive a car or operate machinery until you know how this medication affects you. ? ask your doctor about the safe use of alcoholic beverages while you are taking allopurinol. What SPECIAL DIETARY instructions should I follow? Drink at least eight 8-ounce (240-milliter) cups of water or other liquids each day while taking allopurinol unless directed to do otherwise by your doctor. What should I do IF I FORGET to take a dose? Take the missed dose as soon as you remember it. However, if it is almost time for the next dose, skip the missed dose and continue your regular dosing schedule. Do not take a double dose to make up for a missed one. What SIDE EFFECTS can this medicine cause? Some side effects can be serious. The following symptoms are uncommon, but if you experience any of them, stop taking allopurinol and call your doctor immediately or get emergency treatment: ? rash, itching, or hives ? peeling, blistering, or shedding skin ? red or purple spots on skin ? painful urination ? blood in the urine ? irritation of the eyes ? swelling of the lips or mouth ? fever or flu-like symptoms ? swollen glands ? yellowing of the skin or eyes, pain in the upper right part of the stomach, nausea, vomiting, itching, or extreme tiredness Allopurinol may cause other side effects. Call your doctor if you have any unusual problems while taking this medication. If you experience a serious side effect, you or your doctor may send a report to the Food and Drug Administration's (FDA) MedWatch Adverse Event Reporting program online (https://www.fda.gov/Safety/MedWatch) or by phone ( ). What should I know about STORAGE and DISPOSAL of this medication? Keep this medication in the container it came in, tightly closed, and out of reach of children. Store it at room temperature and away from excess heat and moisture (not in the bathroom). Dispose of unneeded medications in a way so that pets, children, and other people cannot take them. Do not flush this medication down the toilet. Use a medicine take-back program. Talk to your pharmacist about take-back programs in your community. Visit the FDA's Safe Disposal of Medicines website https://goo.gl/c4Rm4p for more information. Keep all medication out of sight and reach of children as many containers are not child-resistant. Always lock safety caps. Place the medication in a safe location - one that is up and away and out of their sight and reach. https://www.upandaway.org What OTHER INFORMATION should I know? Keep all appointments with your doctor and the laboratory. Your doctor will order certain lab tests to check your body's response to allopurinol. Before having any laboratory test, tell your doctor and the laboratory personnel that you are taking allopurinol. Do not let anyone else take your medication. Ask your pharmacist any questions you have about refilling your prescription. Keep a written list of all of the prescription and nonprescription ([id number]) medicines, vitamins, minerals, and dietary supplements you are taking. Bring this list with you each time you visit a doctor or if you are admitted to the hospital. You should carry the list with you in case of emergencies. Brand Name(s): ? Lopurin? ? Zyloprim? also available generically This report on medications is for your information only, and is not considered individual patient advice. Because of the changing nature of drug information, please consult your physician or pharmacist about specific clinical use. The [employer] represents that the information provided hereunder was formulated with a reasonable standard of care, and in conformity with professional standards in the field. The [employer] makes no representations or warranties, express or implied, including, but not limited to, any implied warranty of merchantability and/or fitness for a particular purpose, with respect to such information and specifically disclaims all such warranties. Users are advised that decisions regarding drug therapy are complex medical decisions requiring the independent, informed decision of an appropriate health adult day care worker, and the information is provided for informational purposes only. The entire monograph for a drug should be reviewed for a thorough understanding of the drug's actions, uses and side effects. The [employer] does not endorse or recommend the use of any drug. The information is not a substitute for medical care. AHFS? Patient Medication Information?. ? Copyright, 2023. [employer]?, [address], [address], [place], [place]. All Rights Reserved. Duplication for commercial use must be authorized by [facility]. Selected Revisions: January 10, 2023. AHFS? Patient Medication Information?. ? Copyright, 2024 Kimberlyn [id number] 15:13:14 Images from the original note were not included. 77332 Diagnosing Syncope Syncope is when you suddenly faint or pass out (lose consciousness). It's caused by not getting enough blood flow to the brain. Syncope can have many causes. Some of them aren't serious, but others may be life-threatening. Your healthcare provider will ask you about your fainting episode and your past health. They'll also do an exam. You may need a number of tests to assess your symptoms. Health history and exam You may be asked about: ? Where and when you fainted ? How long you weren't awake and aware (unconscious) ? How you felt just before and right after you fainted ? How you feel when you do moderate to heavy exercise ? If you have a family history of heart disease or fainting ? If you have a heart or neurological problem ? What medicines you're taking ? If you drink alcohol ? If you use illegal drugs Your healthcare provider will examine you and may: ? Check your blood pressure while lying down, sitting, and standing ? Listen for any heart murmurs or abnormal heartbeats ? Listen and feel the pulses in your neck ? Examine your eyes, reflexes, and limb movement Tests Holter monitor You may need one of more of the following tests: ? Electrocardiogram (ECG). This test can help find a slow, fast, or irregular heartbeat. ? Holter monitoring. You wear a portable ECG monitor for 24 to 48 hours. It records your heartbeat and looks for any problems. ? Event monitoring. You wear a portable ECG monitor for several weeks. Like a Holter monitor, it records your heartbeat and looks for any problems. ? Implantable loop recorder. This is a small heart monitor that's inserted over the heart under the skin. It's used for long-term heart rhythm recordings, usually up to 3 to 4 years. ? Echocardiogram. This test takes pictures of your heart with ultrasound. It can show heart valve or heart function problems. It can also show damage from a heart attack. ? Electrophysiology studies (EPS). These help find weak, damaged, or overactive electrical pathways that make your heart beat too fast or slow. They can find the cause of a heart rate or rhythm problem. They can also help your healthcare provider decide how to treat it. ? Tilt table testing. This testing helps show if changes in your body position affect your heart rate and blood pressure. ? Carotid artery ultrasound. This test shows the blood flow through the arteries in the neck that supply oxygen and circulation to your brain. It can find any blockages in these arteries. ? MRI or CT scan of the neck and brain. These tests see if there is something else going on in the brain that is causing a loss of consciousness. They scan the blood flow and brain structures. They are done in a radiology department. ? Blood and other lab tests. These tests are used to find any problems in your body that may cause syncope. For example, low blood sugar can cause a loss of consciousness. It may be mistaken for syncope. Other wastes and toxins, and even dehydration, can affect brain function and consciousness. ? Electroencephalogram (EEG). If your healthcare provider thinks you may be having seizures instead of syncope, this test may be done. Electrodes are put on your scalp. They measure the activity of the brain. A neurologist who specializes in reading EEGs studies the results. You may need to see other specialists to fully assess the cause of your syncope. For instance, you may see a centrifugal extractor operator or a neurologist.. Treatment will be based on the cause of your syncope. Ask your healthcare provider how you'll get the test results and what steps must be taken. One of the concerns with syncope is being injured if you faint. Finding a cause for syncope can help keep you safe from injury. Don't drive a car, use heavy machinery, or do activities that may result in injury if you were to faint. Ask your provider when it's safe to do these activities again. Last Reviewed Date: 2023 00:00:00 ? The [employer]. All rights reserved. This information is not intended as a substitute for professional medical care. Always follow your healthcare professional's instructions. Kimberlyn [id number] 15:13:13 Images from the original note were not included. [id number] Shortness of Breath (Dyspnea) Shortness of breath is the feeling that you can't catch your breath or get enough air. It's also known as dyspnea. Dyspnea can be caused by many different conditions. They include: ? Acute asthma attack. ? Worsening of chronic lung diseases such as chronic bronchitis and emphysema (COPD). ? Heart failure. This is when weak heart muscle causes extra fluid to collect in the lungs. ? Panic attacks or anxiety. Fear can cause rapid breathing (hyperventilation). ? Pneumonia, or an infection in the lung tissue. ? Exposure to toxic substances, fumes, smoke, or certain medicines. ? Blood clot in the lung (pulmonary embolism). This is often from a piece of a blood clot in a deep vein of the leg (deep vein thrombosis) that breaks off and travels to the lungs. ? Heart attack or heart-related chest pain (angina). ? Anemia. ? Collapsed lung (pneumothorax). ? Dehydration. ? . Based on your visit today, the exact cause of your shortness of breath is unknown. Your tests don?t show any of the serious causes of dyspnea. You may need other tests to find out if you have a serious problem. It?s important to watch for any new symptoms or symptoms that get worse. Follow up with your health care provider as directed. Home care Follow these tips to take care of yourself at home: ? When your symptoms are better, go back to your usual activities. ? If you smoke, you should stop. Join a quit-smoking program or ask your health care provider for help. ? Eat healthy foods and get plenty of sleep. ? Get regular exercise. Talk with your provider before you start to exercise, especially if you have other medical problems. ? Talk with your provider about cutting down on the amount of caffeine and stimulants you consume. Follow-up care Follow up with your health care provider, or as advised. If tests are done, you will be told if your treatment needs to be changed. You can call as directed for the results. If an X-ray is taken, you will be told of any new findings that may affect your care. Call 911 Shortness of breath may be a sign of a serious medical problem. For example, it may be a problem with your heart or lungs. Call 911 if you have worsening shortness of breath or trouble breathing, especially with any of the symptoms below: ? Shortness of breath or wheezing ? Confusion or difficulty waking ? Fainting or loss of consciousness ? Fast or irregular heartbeat ? Coughing up blood ? Unusual pain in your chest, arm, shoulder, neck, or upper back ? Unusual sweating ? Feeling of doom ? Lips or skin looks blue, purple, or rocha in color ? Feel dizzy When to seek medical advice Contact your health care provider right away if any of these occur: ? Redness, pain, or swelling in your leg, arm, or other body area ? Swelling in both legs or ankles ? Fast weight gain ? Weakness ? Fever of 100.4?F (38?C) or higher, or as directed by your provider Last Reviewed Date: 2024 00:00:00 ? [id number] The [employer]. All rights reserved. This information is not intended as a substitute for professional medical care. Always follow your healthcare professional's instructions. [facility] [id number] 14:26:04 The patient is Moderately Unstable - Medium risk of patient condition declining or worsening The patient's goals for the shift include safety and comfort The clinical goals for the shift include HD stability Problem: Pain - Adult Goal: Verbalizes/displays adequate comfort level or baseline comfort level Outcome: Progressing Problem: Safety - Adult Goal: Free from fall injury Outcome: Progressing Problem: Discharge Planning Goal: Discharge to home or other facility with appropriate resources Outcome: Progressing Problem: Chronic Conditions and Co-morbidities Goal: Patient's chronic conditions and co-morbidity symptoms are monitored and maintained or improved Outcome: [facility] pt apt needs to see surgery and twister tender paper r/t mass found on txpl kidney at OS, nicolle is faxing all records over [facility]li [id number] 08:34:07 Nicolle from [facility] calling asking for pts coordinator, for transplant updates, please call back [phone] (cell ph) Lisa JeanCritical access [id number] 22:25:41 The patient is Moderately Stable - Low risk of patient condition declining or worsening The patient's goals for the shift include rest & comfort The clinical goals for the shift include rest & comfort Problem: Pain - Adult Goal: Verbalizes/displays adequate comfort level or baseline comfort level Outcome: Progressing Problem: Safety - Adult Goal: Free from fall injury Outcome: Progressing Problem: Discharge Planning Goal: Discharge to home or other facility with appropriate resources Outcome: Progressing Problem: Chronic Conditions and Co-morbidities Goal: Patient's chronic conditions and co-morbidity symptoms are monitored and maintained or improved Outcome: Progressing Problem: Knowledge Deficit Goal: Patient/family/caregiver demonstrates understanding of disease process, treatment plan, medications, and discharge instructions Outcome: Progressing Problem: Potential for Falls Goal: I will remain free of falls Outcome: Progressing Problem: Neurosensory - Adult Goal: Achieves stable or improved neurological status Outcome: Progressing Goal: Absence of seizures Outcome: Progressing Goal: Remains free of injury related to seizures activity Outcome: Progressing Goal: Achieves maximal functionality and self care Outcome: Progressing Problem: Respiratory - Adult Goal: Achieves optimal ventilation and oxygenation Outcome: Progressing Problem: Cardiovascular - Adult Goal: Maintains optimal cardiac output and hemodynamic stability Outcome: Progressing Goal: Absence of cardiac dysrhythmias or at baseline Outcome: Progressing Problem: Skin/Tissue Integrity - Adult Goal: Skin integrity remains intact Outcome: Progressing Goal: Incisions, wounds, or drain sites healing without S/S of infection Outcome: Progressing Goal: Oral mucous membranes remain intact Outcome: Progressing Problem: Musculoskeletal - Adult Goal: Return mobility to safest level of function Outcome: Progressing Goal: Maintain proper alignment of affected body part Outcome: Progressing Goal: Return ADL status to a safe level of function Outcome: Progressing Problem: Gastrointestinal - Adult Goal: Minimal or absence of nausea and vomiting Outcome: Progressing Goal: Maintains or returns to baseline bowel function Outcome: Progressing Goal: Maintains adequate nutritional intake Outcome: Progressing Goal: Establish and maintain optimal ostomy function Outcome: Progressing Problem: Genitourinary - Adult Goal: Absence of urinary retention Outcome: Progressing Goal: Urinary catheter remains patent Outcome: Progressing Problem: Infection - Adult Goal: Absence of infection at discharge Outcome: Progressing Goal: Absence of infection during hospitalization Outcome: Progressing Goal: Absence of fever/infection during anticipated neutropenic period Outcome: Progressing Problem: Metabolic/Fluid and Electrolytes - Adult Goal: Electrolytes maintained within normal limits Outcome: Progressing Goal: Hemodynamic stability and optimal renal function maintained Outcome: Progressing Goal: Glucose maintained within prescribed range Outcome: Progressing Problem: Hematologic - Adult Goal: Maintains hematologic stability Outcome: Progressing [facility]2025-07-24 09:53:24 The patient is Moderately Stable - Low risk of patient condition declining or worsening The patient's goals for the shift include Rest The clinical goals for the shift include Hemodynamic stability [facility]2025-07-24 04:43:31 The patient is Moderately Stable - Low risk of patient condition declining or worsening The patient's goals for the shift include REST The clinical goals for the shift include HDS [facility]2025-07-23 13:23:35 11/19 pt dc from [facility]SH apt with sx and yxpl made for 11/24/24 and records resquested 11/18/24: still awaiting transfer Spoke to Nicolle (coordinator) pt is pending transfer to [facility] r./t large mass on transplanted kidney that was found incidentally while syncope episode/ KATLYN work up was being completed at OSH. Mass first found in 2017, but seems to have grown quick larger per Nicolle based on [address] CT. Weighing biopsy. Oli [place] [facility] [id number] 09:47:59 Cely Myers is a 69 year old male Della with [facility] in [place] is calling to speak to either the physician or the coordinator to discuss pt care. Please call back at [phone] (Dr [place]) Aarti HinojosaMcCullough-Hyde Memorial [id number] 08:00:00 The patient is Moderately Stable - Low risk of patient condition declining or worsening The patient's goals for the shift include rest The clinical goals for the shift include HDS [facility]2025-07-23 03:36:08 The patient is Moderately Unstable - Medium risk of patient condition declining or worsening The patient's goals for the shift include sleep The clinical goals for the shift include HDs Problem: Pain - Adult Goal: Verbalizes/displays adequate comfort level or baseline comfort level Outcome: Ongoing Problem: Safety - Adult Goal: Free from fall injury Outcome: Ongoing Problem: Discharge Planning Goal: Discharge to home or other facility with appropriate resources Outcome: Ongoing [facility]2025-07-22 08:00:00 The patient is Moderately Stable - Low risk of patient condition declining or worsening The patient's goals for the shift include sleep The clinical goals for the shift include HDs Over the shift, the patient did not make progress toward the following goals. Barriers to progression include . Recommendations to address these barriers include . [facility]2025-07-21 08:19:40 Pt informed that if he needs to urinate, to go ahead and do so--as he is already connected to the condom catheter and drainage bag. Pt is on MRI table and being set up with bety positioned on the diaphragm for timing as we are about to commence the MRI. [facility]2025-07-21 08:00:00 The patient is Moderately Unstable - Medium risk of patient condition declining or worsening The patient's goals for the shift include rest The clinical goals for the shift include MRI, PYP Over the shift, the patient did not make progress toward the following goals. Barriers to progression include . Recommendations to address these barriers include . [id number] 17:09:20 The patient is Moderately Stable - Low risk of patient condition declining or worsening The patient's goals for the shift include Rest The clinical goals for the shift include Hemodynamically stable [facility]2025-07-19 22:51:02 The patient is Moderately Stable - Low risk of patient condition declining or worsening The patient's goals for the shift include rest The clinical goals for the shift include HD stability Problem: Pain - Adult Goal: Verbalizes/displays adequate comfort level or baseline comfort level Outcome: Ongoing Problem: Safety - Adult Goal: Free from fall injury Outcome: Ongoing Problem: Discharge Planning Goal: Discharge to home or other facility with appropriate resources Outcome: Ongoing Problem: Chronic Conditions and Co-morbidities Goal: Patient's chronic conditions and co-morbidity symptoms are monitored and maintained or improved Outcome: Ongoing Problem: Knowledge Deficit Goal: Patient/family/caregiver demonstrates understanding of disease process, treatment plan, medications, and discharge instructions Outcome: Ongoing Problem: Potential for Falls Goal: I will remain free of falls Outcome: Ongoing [facility]2025-07-19 08:43:21 The patient is Unstable - High likelihood or risk of patient condition declining or worsening The patient's goals for the shift include Rest, Safety, Comfort The clinical goals for the shift include HDS [facility]2025-07-18 11:16:48 MRI near complete, report given VSS, NAD, will return PT to unit on monitor w/ MRI RN and transport upon arrival. [facility]2025-07-18 08:39:19 The patient is Unstable - High likelihood or risk of patient condition declining or worsening The patient's goals for the shift include Rest, Safety, Comfort The clinical goals for the shift include HDS [facility]2025-07-17 20:00:00 The patient is Moderately Unstable - Medium risk of patient condition declining or worsening The patient's goals for the shift include Rest, Safety, Comfort The clinical goals for the shift include HDS Problem: Pain - Adult Goal: Verbalizes/displays adequate comfort level or baseline comfort level Outcome: Progressing Problem: Safety - Adult Goal: Free from fall injury Outcome: Progressing Problem: Discharge Planning Goal: Discharge to home or other facility with appropriate resources Outcome: Progressing Problem: Chronic Conditions and Co-morbidities Goal: Patient's chronic conditions and co-morbidity symptoms are monitored and maintained or improved Outcome: Progressing Problem: Knowledge Deficit Goal: Patient/family/caregiver demonstrates understanding of disease process, treatment plan, medications, and discharge instructions Outcome: Progressing Problem: Potential for Falls Goal: I will remain free of falls Outcome: Progressing Just[facility] Gomez [id number] 14:38:20 Problem: Pain - Adult Goal: Verbalizes/displays adequate comfort level or baseline comfort level Outcome: Ongoing Problem: Safety - Adult Goal: Free from fall injury Outcome: Ongoing Problem: Discharge Planning Goal: Discharge to home or other facility with appropriate resources Outcome: Ongoing Problem: Chronic Conditions and Co-morbidities Goal: Patient's chronic conditions and co-morbidity symptoms are monitored and maintained or improved Outcome: Ongoing Problem: Knowledge Deficit Goal: Patient/family/caregiver demonstrates understanding of disease process, treatment plan, medications, and discharge instructions Outcome: Ongoing [facility]ino[id number] 20:00:00 The patient is Moderately Unstable - Medium risk of patient condition declining or worsening The patient's goals for the shift include Comfort, Safety, Rest The clinical goals for the shift include HDS, Observation Problem: Pain - Adult Goal: Verbalizes/displays adequate comfort level or baseline comfort level Outcome: Progressing Problem: Safety - Adult Goal: Free from fall injury Outcome: Progressing Problem: Discharge Planning Goal: Discharge to home or other facility with appropriate resources Outcome: Progressing Problem: Chronic Conditions and Co-morbidities Goal: Patient's chronic conditions and co-morbidity symptoms are monitored and maintained or improved Outcome: Progressing Problem: Knowledge Deficit Goal: Patient/family/caregiver demonstrates understanding of disease process, treatment plan, medications, and discharge instructions Outcome: Progressing Problem: Potential for Falls Goal: I will remain free of falls Outcome: [facility]ing [id number] 11:00:28 Ashvin Patel is a 69 y.o. male Current Diagnoses Listed: Patient Active Problem List Diagnosis Syncope and collapse Coronary artery disease involving autologous artery coronary bypass graft without angina pectoris Essential hypertension -donor kidney transplant KATLYN (acute kidney injury) (HCC) Current Bedding Status: Inpatient Insurance: [employer] MEDICARE Midnights Crossed at Time of Review: One Midnight Recommendation: Inpatient Status Chart review inclusive of information currently available from: Physician or Procure Notes and Reports, Currently available Labs and Imaging Reports, Nursing Notes, Vital Signs, Relevant Historical Data if Available, and Orders or Scheduled Procedures. Team Notification: Status Change Not Required, No Message Sent Final Recommendation(s): Secondary Review Review Type: Initial Initial Recommendation: Inpatient Secondary Review Status: Physician advisor review complete Rationale for Recommendation(s): Patient is a renal transplant patient coming in with syncope, katlyn on ckd. Hospital day 2, patient's renal function not back to baseline, diuretics being adjusted and ongoing syncope workup. [facility] [id number] 11:07:00 History of Present Illness: Chief Complaint: Patient presents with Syncope Weakness, Gen 69 y.o. male with PMH significant for CAD s/p CABG in 2023, ESRD s/p DDRT, prediabetes, and HTN who presented to the ED due to syncopal episode at home witnessed by friend. Patient does not note any pre-syncopal symptoms and says that he blacked out upon standing. Per EMS patient was back at baseline at time of their arrival. Patient History No past medical history on file. No past surgical history on file. No family history on file. Social History: Tobacco Use Smoking status: Not on file Smokeless tobacco: Not on file Substance Use Topics Alcohol use: Not on file Drug use: Not on file Review of Systems: Review of Systems Physical Exam: Vitals and nursing note reviewed. Constitutional: General: He is awake. He is not in acute distress. Appearance: Normal appearance. He is well-developed and well-groomed. HENT: Head: Normocephalic and atraumatic. Eyes: Conjunctiva/sclera: Conjunctivae normal. Pupils: Pupils are equal, round, and reactive to light. Cardiovascular: Rate and Rhythm: Normal rate and regular rhythm. Pulmonary: Effort: Tachypnea and respiratory distress present. Breath sounds: Decreased air movement present. Abdominal: General: Abdomen is flat. Palpations: Abdomen is soft. Musculoskeletal: General: No swelling or signs of injury. Normal range of motion. Skin: General: Skin is warm and dry. Capillary Refill: Capillary refill takes less than 2 seconds. Neurological: General: No focal deficit present. Mental Status: He is alert. Mental status is at baseline. Cranial Nerves: No facial asymmetry. Motor: No seizure activity. Gait: Gait normal. Psychiatric: Mood and Affect: Mood normal. Speech: Speech normal. Behavior: Behavior is cooperative. Triage Vitals: BP: 106/61, Heart Rate: 66, Temp: 36.7 ?C (98.1 ?F), Resp: 18, SpO2: 94 %, Height: 175.3 cm (5' 9"), Weight: 90.7 kg (200 lb) Last Recorded Vitals: BP: 106/61, Heart Rate: 66, Temp: 36.7 ?C (98.1 ?F), Resp: 18, SpO2: 94 %, Height: 175.3 cm (5' 9"), Weight: 90.7 kg (200 lb) Procedures Performed: Procedures ED Course : ED Course: as of 11/15/24 1531 Tue Nov 09, 2024 1258 Natriuretic Peptide B(!): 446 [DW] 1327 XR chest 1 view IMPRESSION: Right greater than left bronchovascular crowding, with/without superimposed pulmonary edema or developing infection. [DW] 1327 HS Troponin I 0 to 1 Hour Delta: -10 [DW] 1358 Creatinine Lvl(!): 2.26 1.95 on labs drawn yesterday. [BF] 1441 Hx of renal transplant, prior heart surgery at [facility] - unknown details, presenting for syncopal episode while seated, new 2 L O2 requirement, hypoxic to 90% without O2, has KATLYN, pending reassessment - possible diuretics for CHF exacerbation [AL] 1835 CT angiogram chest pulmonary embolism 1. No pulmonary embolism. 2. Cardiomegaly. Left ventricular hypertrophy. 3. Aortic and diffuse coronary artery calcifications with CABG changes. 4. The ascending aorta is borderline dilated measuring 40 mm. 5. The pulmonary trunk is enlarged measuring 35 mm, concerning for pulmonary hypertension. 6. Subsegmental atelectasis in both lower lobes and lingula. No consolidation. 7. Dependent secretions in the right main bronchus. 8. Small hiatal hernia. [SM] 2103 Admitted to [facility] [SM] ED Course: User Index [AL] Rafaela Lawrence MD [BF] Randolph Katz MD [DW] Favio Noe MD [SM] Kendal Conde MD Diagnoses as of 11/15/24 1531 Dyspnea, unspecified type Disposition: Medical Decision Making Assessment: 69 y.o. male presenting to ED with dyspnea and syncopal episode while sitting. DDX: ACS, CHF exacerbation, COPD exacerbation, asthma, pneumonia, viral URI, bronchitis, PE, anaphylaxis, pneumothorax, anxiety, upper airway obstruction, DKA, Sepsis Plan: Given patients unstable vitals and toxic-appearance, will initiate comprehensive lab work up including CBC, BMP, lactic acid, EKG and others. Will assess for source with UA, CXR given broad differential and poor history. CTPE to assess for PE. Cardiac work up including EKG, trop, mag, bnp. Reassessment: Other significant findings as noted above in ED Course Care of patient signed out to oncoming provider. Lab work and diagnostic results reviewed. Patient was stable at time of handoff pending additional labs and imaging. This patient was seen and evaluated by me: Favio Noe, DO Emergency Medicine | PGY-2 [facility] This note was dictated with the use of dictation speech recognition software, please use best judgement when interpreting and excuse any catalog librarian errors. Complexity of Problems Addressed (High) I am concerned about a Severe complexity problem which was evidenced by the differential, and associated workup to rule out the severe problem: arrhythmia which is a New/exacerbation of chronic problem for this patient as evidenced by HPI and workup. Complexity of Data Review (# Of Data Points) Ordered the following tests: CBC, BMP, EKG, CXR (Image/Tracing interpretation) I contemporaneously during the patient encounter interpreted the following: cxr of the patient and these are my findings: [no pnx] Amount and/or Complexity of Data Reviewed Labs: ordered. Decision-making details documented in ED Course. Radiology: ordered. Decision-making details documented in ED Course. ECG/medicine tests: ordered. Risk Prescription drug management. Scoring Tools Favio Noe MD Resident 11/15/24 1554 Cosigned by Randolph Katz MD at 11/16/2024 5:28 PM CDT Associated attestation - Randolph Katz MD - 11/16/2024 5:28 PM CDT Teaching Attending Attestation The patient was seen and examined by me in the presence of, or jointly with, the resident, and I agree with the History/Exam/Medical Decision Making documented unless further documented below. Additionally, I was directly involved in the management of the patient. Clinical Impression: 1. Dyspnea, unspecified type Randolph Katz MD, S Entry Level Receptionist [facility] Department of Emergency Medicine November 16, 2024 5:27 PM [facility] [id number] 11:07:00 I assumed care of this patient at 2pm signout from prior resident. Under my care: ED Course: as of 11/14/24 1110 Tue Nov 09, 2024 1258 Natriuretic Peptide B(!): 446 [DW] 1327 XR chest 1 view IMPRESSION: Right greater than left bronchovascular crowding, with/without superimposed pulmonary edema or developing infection. [DW] 1327 HS Troponin I 0 to 1 Hour Delta: -10 [DW] 1358 Creatinine Lvl(!): 2.26 1.95 on labs drawn yesterday. [BF] 1441 Hx of renal transplant, prior heart surgery at [facility] - unknown details, presenting for syncopal episode while seated, new 2 L O2 requirement, hypoxic to 90% without O2, has KATLYN, pending reassessment - possible diuretics for CHF exacerbation [AL] 1835 CT angiogram chest pulmonary embolism 1. No pulmonary embolism. 2. Cardiomegaly. Left ventricular hypertrophy. 3. Aortic and diffuse coronary artery calcifications with CABG changes. 4. The ascending aorta is borderline dilated measuring 40 mm. 5. The pulmonary trunk is enlarged measuring 35 mm, concerning for pulmonary hypertension. 6. Subsegmental atelectasis in both lower lobes and lingula. No consolidation. 7. Dependent secretions in the right main bronchus. 8. Small hiatal hernia. [SM] 2103 Admitted to [facility] [SM] ED Course: User Index [AL] Rafaela Lawrence MD [BF] Randolph Katz MD [DW] Favio Noe MD [SM] Kendal Conde MD Diagnoses as of 11/14/24 1110 Dyspnea, unspecified type SW stated both [facility] campuses are at capacity. Consulted cardiology for admission, concern for cardiac contribution to syncopal event. Cardiology said they will admit the pt. Dispo: Admitted to [facility] MDM LOS Details Category 3: (Consult) I consulted and spoke with cardiology about the patient and they state: will admit the pt Risk of Management (Admission) Patient to be admitted to the hospital Signature Line Kendal Conde, Preliminary Report for Review Only * Do Not Sign. Must be Signed Electronically Kendal Conde MD Resident 11/13/24 0125 Cosigned by Rafaela Lawrence MD at 11/16/2024 8:57 AM CDT Associated attestation - Rafaela Lawrence MD - 11/16/2024 8:57 AM CDT Teaching Attending Attestation ([place] of Care Note): I assumed care of this patient from the previous EC attending. I agree with the resident's plan unless further documented below. Additionally, I was directly involved in the management of the patient. Impression: 1. Dyspnea, unspecified type Rafaela Lawrence MD [facility]Amwzjhh8672-24-95 10:52:30 11/09/24 1053: called pt LVM r/t tacro trough <3 Oli Cleveland [place] [id number] 08:15:00 Images from the original note were not included. Venipuncture collection performed by clean technique on the left anticubitus. Total of 1 attempts were made. Slight pressure and a bandage/dressing were applied to the site(s). The patient experienced no complications. The following specimens were processed according to instructions and sent to [facility] laboratories per lab order on 11/08/2024 : LT BLUE SST 1 RED 1 LAV 2 PPT 2 DK GREEN (LiHep) DK GREEN (SodH) ROCHA DK BLUE (K2) DK BLUE (S) ACD Blood Culture NIPT/NTD Patient has been identified by and name and was provided with cup, antiseptic towelette, and clean catch instructions. 3 urine specimen(s) sent. Unpreserved 3 Urine Culture Aptima tube Other urine [place] [id number] 07:28:54 FRANK 10/21/24 NOV 04/25/25 Pao Maradiaga [facility] CenterDxddbm1237-14-95 09:59:46 Per ALFREDO Abrams no phone has been found. She will continue to ask around. Called pt on number provided. No answer. Left VM that no phone has been turned in. Pao Maradiaga [place] [id number] 18:05:31 Cely Myers is a 69 year old male Patient is calling stating he left his smart phone at the clinic at today's visit 10/21/24. Please call [phone]. Breonna WhitfieldZ[place]ary [place] 384[address]-06-20 08:00:00 Images from the original note were not included. Venipuncture collection performed by clean technique on the right anticubitus. Total of 2 attempts were made. Slight pressure and a bandage/dressing were applied to the site(s). The patient experienced no complications. The following specimens were processed according to instructions and sent to [facility] laboratories per lab order on 10/15/2024 : LT BLUE SST 1 RED 1 LAV 2 PPT 2 DK GREEN (LiHep) DK GREEN (SodH) ROCHA DK BLUE (K2) DK BLUE (S) ACD Blood Culture NIPT/NTD Patient has been identified by and was provided with cup, antiseptic towelette, and clean catch instructions. 2 urine specimen(s) sent. Unpreserved 2 Urine Culture Aptima tube Other urine [place] [id number] 08:57:15 Requested Prescriptions Pending Prescriptions Disp Refills TACROLIMUS 1 mg capsule [Pharmacy Med Name: TACROLIMUS 1 MG CAPSULE (IR)] 900 capsule 4 Sig: TAKE 5 CAPSULES BY MOUTH EVERY 12 HOURS. (TAKE 5 CAPS IN THE MORNING AND 5 CAPS IN THE EVENING) FRANK: 04/12/24 NOV: 10/21/24 Oli Cleveland [place] [id number] 10:48:41 FRANK 04/12/24 NOV 10/21/24 Pao Maradiaga [facility] CenterDgngra0655-82-98 09:47:34 Images from the original note were not included. Routed to provider for review. Unable to refill per ambulatory refill guidelines. Notes: fluticasone propionate 50 mcg/actuation nasal spray Sig: N/A Disp: 16 g Refills: 2 Start: 08/19/2024 Class: eRX For: Chronic allergic rhinitis Last ordered: 3 months ago (05/18/2024) by Dhiraj Fernandes MD Pulmonology & Allergy: Maintenance Inhalers (ICS-inhaled corticosteroids) Afveri1208/19/2024 08:09 AM Protocol Details Valid encounter within last 12 months To be filled at: [id number] - [address] Last Refilled: 05/18/24 Recent Visits Date Type Provider Dept 08/03/24 Office Visit Abner Rivera MD [facility] 04/29/24 Office Visit Abner Rivera MD [facility] 01/21/24 Office Visit Abner Rivera MD [facility] 01/21/24 Office Visit Abner Rivera MD [facility] 10/07/23 Office Visit Nicolle Phillips FNP [facility] Showing recent visits within past 540 days with a meds authorizing provider and meeting all other requirements Future Appointments No visits were found meeting these conditions. Showing future appointments within next 150 days with a meds authorizing provider and meeting all other requirements [facility]Qbwcyz6563-43-87 16:00:00 Images from the original note were not included. Venipuncture collection performed by clean technique on the right anticubitus. Total of 2 attempts were made. Slight pressure and a bandage/dressing were applied to the site(s). The patient experienced no complications. The following specimens were processed according to instructions and sent to [facility] laboratories per lab order on 08/03/2024: LT BLUE SST 2 RED LAV 1 PPT 1 DK GREEN (LiHep) DK GREEN (SodH) ROCHA DK BLUE (K2) DK BLUE (S) ACD Blood Culture NIPT/NTD [facility] 16:00:00 Normal labs. Continue with well balanced diet (including fish, organ meats, vegetables, fruits, fortified cereals) with activities and exercise as tolerated. [place] 38[address]-04-08 16:00:00 Normal thyroid [place] 38[address]-04-08 16:00:00 Low Vit D level 23 [goal 25 - 80]. Start taking 50,000IU vitamin D3 daily, with Calcium 500mg daily. Prescription sent to the pharmacy. [place] [address]-04-08 16:00:00 Addended by: ABNER RIVERA on: 08/04/2024 11:58 AM Modules accepted: Orders [place] [address]-03-25 09:19:02 FRANK 04/12/24 NOV 10/21/24 IN [facility] Pao Maradiaga [place] 46193-02-28 08:44:04 Images from the original note were not included. MEDICATION REFILL REQUEST The following eRX(s) were sent to the requested pharmacy Requested Prescriptions Pending Prescriptions Disp Refills tacrolimus 1 mg capsule 810 capsule 3 Pt requested this refill yesterday. Called [facility] to inquire why this request was being sent in again. [facility] states the refill is ready to be picked up. Called pt to inform him- voicemail left. Refill request refused since drug is already filled and ready for pickup. Christy Mares RN, BSN Kidney Quill Reamer Office: [phone] | Direct: [phone] Email: [email or web address] Mares [facility] CenterUgiadt9712-56-44 08:31:25 Cely Myers is a 69 year old male calling for refill on TACROLIMUS 1 mg capsule Please advise [facility]/pharmacy #[id number] - [facility] [place] - [address] [place] [address] [facility]2025-02-27 11:12:23 Images from the original note were not included. MEDICATION REFILL REQUEST The following eRX(s) were sent to the requested pharmacy Requested Prescriptions Pending Prescriptions Disp Refills TACROLIMUS 1 mg capsule [Pharmacy Med Name: TACROLIMUS 1 MG CAPSULE (IR)] 810 capsule 3 Sig: TAKE 5 CAPSULES BY MOUTH EVERY 12 HOURS. (TAKE 5 CAPS IN THE MORNING AND 5 CAPS IN THE EVENING) FRANK:04/12/24 - "continue current regimen: Cellcept 500 mg BID, Tacrolimus 5 mg BID " NOV:10/21/24 Christy Mares RN, BSN Kidney Quill Reamer Office: [phone] | Direct: [phone] Email: [email or web address] Mares [facility] CenterJeyojr9646-86-84 09:51:37 Call placed to pharmacy to approve 90 day supply with no refills. Riley RNMaria [place] 027195-02-17 08:37:50 3rd attempt, unable to LVM. Closing encounter. Riley RNMaria [place] 027195-02-17 08:20:55 Images from the original note were not included. [facility] Joyce CrooksMcCullough-Hyde Memorial HospitalLseawc2941-60-79 11:55:16 2nd attempt, no answer or option given to LVM. [facility]2025-02-13 09:13:59 Call placed to pt no answer or option given to LVM. [facility]2025-02-12 17:38:31 Rx sent, let patient know, and to follow-up as scheduled. Essential hypertension/S/P CABG (coronary artery bypass graft) - labetaloL 200 mg tablet; Take 2 tablets by mouth every 12 (twelve) hours. Dispense: 120 tablet; Refill: 2 [facility]2025-02-12 07:45:29 Cely Myers is a 69 year old male patient calling out of Labetalol 200 mg, requesting refill. Please call [phone] [facility]/pharmacy #[id number] [address] [facility] Tiffany MorganMercer County Community HospitalYcicwf9772-23-26 11:29:24 Called pt no answer unable to leave voicemail "wireless customer is not available please try again later". CIPAL SOFTWARE ARCHITECT Chloe BrayMcCullough-Hyde Memorial HospitalOwoasq9972-47-70 08:52:00 Christina Nurse Silverware Washer with [facility] calling to report that Cely Myers is a 69 year old male was discharged from [facility] 05/19/24. He was admitted on 05/10 for I 21.4 Heart attack. She is requesting patient outreach for follow up visit Please advise Christina Auguste [phone] ext [phone] Cely Myers is a 69 year old male [phone] (home) [facility] Kate CampbellFormerly [facility]2025-01-29 14:02:28 Images from the original note were not included. [facility]2025-01-27 09:09:58 Images from the original note were not included. Requested Renewals Name from pharmacy: LISINOPRIL 5 MG TABLET Will file in chart as: LISINOPRIL 5 mg tablet The original prescription was discontinued on 05/26/2023 by Parminder Rueda MD for the following reason: Reorder. Renewing this prescription may not be appropriate. Sig: TAKE 1 TABLET BY MOUTH EVERY DAY IN THE MORNING Disp: 90 tablet Refills: 3 Start: 05/22/2024 Class: eRX For: Coronary artery disease involving chitina coronary artery of chitina heart without angina pectoris, Essential hypertension Last ordered: 1 year ago (02/19/2023) by Junior Garcia NP Last refill: 02/18/2024 Rx #: [id number] Cardiovascular: ZHEN Inhibitors Yyrqte0205/22/2024 07:15 AM Protocol Details Cr in normal range and within 360 days Valid encounter within last 12 months K in normal range and within 360 days To be filled at: [facility]/pharmacy #[id number] 04-29-2024 NOV 05-24-2024 [place] 419435-01-23 09:15:40 Images from the original note were not included. Medical record received from [facility] scanned in folder and placed in provider basket for review. CIPAL SOFTWARE ARCHITECT Chloe Haas [facility]2025-01-23 09:11:17 Images from the original note were not included. [facility] radiology report received placed in Dr. Rivera folder for review. CIPAL SOFTWARE ARCHITECT Joyce CrooksMcCullough-Hyde Memorial HospitalPsdoxg1020-65-98 12:35:36 Pharmacy requesting 90 day script with Dx, routing to provider for updated script. CIPAL SOFTWARE ARCHITECT Rina Riley RNMcCullough-Hyde Memorial HospitalJiegpd7147-19-20 08:16:09 Images from the original note were not included. CIPAL SOFTWARE ARCHITECT Chloe Haas [place] 207934-12-27 08:30:00 Images from the original note were not included. Venipuncture collection performed by clean technique on the right anticubitus. Total of 1 attempts were made. Slight pressure and a bandage/dressing were applied to the site(s). The patient experienced no complications. The following specimens were processed according to instructions and sent to [facility] laboratories per lab order on 04/23/2024 : LT BLUE SST 1 RED LAV 2 PPT 2 DK GREEN (LiHep) DK GREEN (SodH) ROCHA DK BLUE (K2) DK BLUE (S) ACD Blood Culture NIPT/NTD Patient has been identified by and name and was provided with cup, antiseptic towelette, and clean catch instructions. 2 urine specimen(s) sent. Unpreserved 2 Urine Culture Aptima tube Other urine [place] 26287-12-16 14:00:00 Addended by: OLI CLEVELAND on: 04/14/2024 11:40 AM Modules accepted: Orders [place] 26287-12-16 12:45:00 Images from the original note were not included. Venipuncture collection performed by clean technique on the left anticubitus. Total of 1 attempts were made. Slight pressure and a bandage/dressing were applied to the site(s). The patient experienced no complications. The following specimens were processed according to instructions and sent to [facility] laboratories per lab order on 04/12/24: LT BLUE SST 3 RED 1 LAV 2 PPT 1 DK GREEN (LiHep) DK GREEN (SodH) ROCHA DK BLUE (K2) DK BLUE (S) ACD Blood Culture NIPT/NTD Patient has been identified by and name and was provided with cup, antiseptic towelette, and clean catch instructions. 2 urine specimen(s) sent. Unpreserved 2 Urine Culture Aptima tube Other urine [place] 419434-11-22 12:42:08 Images from the original note were not included. Changes Requested Name from pharmacy: FLUTICASONE PROP 50 MCG SPRAY Will file in chart as: FLUTICASONE PROPIONATE 50 mcg/actuation nasal spray Sig: SPRAY 2 SPRAYS INTO EACH NOSTRIL IN THE MORNING Disp: Not specified (Pharmacy requested: 48 mL) Refills: 1 Start: 03/19/2024 Class: eRX For: Chronic allergic rhinitis Last ordered: 1 month ago (02/15/2024) by Abner Rivera MD Last refill: 02/15/2024 Rx #: [id number] Pharmacy comment: REQUEST FOR 90 DAYS PRESCRIPTION. DX Code Needed. Pulmonology & Allergy: Maintenance Inhalers (ICS-inhaled corticosteroids) Qkcmll2403/19/2024 11:33 AM Protocol Details Valid encounter within last 12 months This request has changes from the previous prescription. To be filled at: [facility]/pharmacy #[id number] [place] 419434-10-18 09:16:54 Images from the original note were not included. Changes Requested Name from pharmacy: FLUTICASONE PROP 50 MCG SPRAY Will file in chart as: FLUTICASONE PROPIONATE 50 mcg/actuation nasal spray Sig: SPRAY 2 SPRAYS INTO EACH NOSTRIL IN THE MORNING Disp: Not specified (Pharmacy requested: 48 mL) Refills: 1 Start: 02/13/2024 Class: eRX For: Chronic allergic rhinitis Last ordered: 3 weeks ago (01/21/2024) by Abner Rivera MD Last refill: 01/21/2024 Rx #: [id number] Pharmacy comment: REQUEST FOR 90 DAYS PRESCRIPTION. DX Code Needed. Allergy Dtdxty3302/13/2024 07:31 AM Protocol Details Valid encounter within last 12 months This request has changes from the previous prescription. To be filled at: [facility]/pharmacy #[id number] [place] 097224-09-26 13:23:22 Images from the original note were not included. Refused-refills available Notes: Name from pharmacy: LABETALOL HCL 200 MG TABLET Will file in chart as: LABETALOL 200 mg tablet Possible duplicate: Hover to review recent actions on this medication Sig: TAKE 2 TABLETS BY MOUTH EVERY 12 HOURS. Disp: 360 tablet Refills: Not specified Start: 01/22/2024 Class: eRX For: S/P CABG (coronary artery bypass graft), Essential hypertension Last ordered: 1 week ago (01/09/2024) by Abner Rivera MD Last refill: 01/09/2024 Rx #: [id number] Cardiovascular: Beta Blockers Emhpzs1501/22/2024 10:23 AM Protocol Details Valid encounter within last 12 months Heart rate within normal limits and completed in the last 12 months To be filled at: [facility]/pharmacy #[id number] Last Refilled: 01/09/2024 Recent Visits Date Type Provider Dept 01/21/24 Office Visit Abner Rivera MD [facility] 01/21/24 Office Visit Abner Rivera MD [facility] 10/07/23 Office Visit Nicolle Phillips FNP [facility] 02/19/23 Office Visit Junior Garcia NP [facility] 01/13/23 Office Visit Junior Garcia NP [facility] 10/21/22 Office Visit Abner Rivera MD [facility] Showing recent visits within past 540 days with a meds authorizing provider and meeting all other requirements Future Appointments Date Type Provider Dept 04/29/24 Appointment Abner Rivera MD [facility] Showing future appointments within next 150 days with a meds authorizing provider and meeting all other requirements Nicolle Haley [facility] CenterUvyson0534-90-13 11:23:20 Addended by: NICOLLE HALEY MA on: 01/09/2024 11:23 AM Modules accepted: Orders Nicolle Haley [facility] CenterYjoglf5504-50-47 11:17:09 Images from the original note were not included. Notes: labetaloL 200 mg tablet Sig: Take 2 tablets by mouth every 12 (twelve) hours. Disp: 120 tablet Refills: 2 Start: 01/09/2024 Class: eRX For: S/P CABG (coronary artery bypass graft), Essential hypertension Last ordered: 1 month ago (11/17/2023) by Abner iRvera MD Cardiovascular: Beta Blockers Hdlhnr7101/09/2024 09:55 AM Protocol Details Valid encounter within last 12 months Heart rate within normal limits and completed in the last 12 months To be filled at: [facility]/pharmacy #[id number] Last Refilled: 11/17/2023 Recent Visits Date Type Provider Dept 10/07/23 Office Visit Nicolle Phillips FNP [facility] 02/19/23 Office Visit Junior Garcia NP [facility] 01/13/23 Office Visit Junior Garcia NP [facility] 10/21/22 Office Visit Abner Rivera MD [facility] 07/30/22 Office Visit Junior Garcia NP [facility] Showing recent visits within past 540 days with a meds authorizing provider and meeting all other requirements Future Appointments Date Type Provider Dept 01/21/24 Appointment Abner Rivera MD [facility] 01/21/24 Appointment Abner Rivera MD [facility] Showing future appointments within next 150 days with a meds authorizing provider and meeting all other requirements Nicolle Haley [place] [id number] 09:54:10 Images from the original note were not included. [facility]2024-09-09 16:00:00 Images from the original note were not included. Venipuncture collection performed by clean technique on the right anticubitus. Total of 2 attempts were made. Slight pressure and a bandage/dressing were applied to the site(s). The patient experienced no complications. The following specimens were processed according to instructions and sent to [facility] laboratories per lab order on 01/05/2024 : LT BLUE SST 2 RED 1 LAV 2 PPT 1 DK GREEN (LiHep) DK GREEN (SodH) ROCHA DK BLUE (K2) DK BLUE (S) ACD Blood Culture NIPT/NTD ALLOSURE was done today. Patient has been identified by and name and was provided with cup, antiseptic towelette, and clean catch instructions. 3 urine specimen(s) sent. Unpreserved 3 Urine Culture Aptima tube Other urine [place] 027194-08-09 09:39:44 Images from the original note were not included. Refill request refilled per ambulatory refill guidelines. Notes: Name from pharmacy: PRAVASTATIN SODIUM 40 MG TAB Will file in chart as: PRAVASTATIN 40 mg tablet Sig: TAKE 1 TABLET BY MOUTH EVERYDAY AT BEDTIME Disp: 90 tablet Refills: 0 (Pharmacy requested: Not specified) Start: 12/05/2023 Class: eRX For: Coronary artery disease involving chitina coronary artery of chitina heart without angina pectoris Last ordered: 3 months ago (08/28/2023) by Junior Garcia NP Last refill: 08/28/2023 Rx #: [id number] Cardiovascular: Antilipid - HMG-CoA Reductase Inhibitors Djaaed8312/05/2023 12:27 AM Protocol Details Valid encounter within last 12 months Total Cholesterol within 360 days LDL within 360 days HDL within 360 days Triglycerides within 360 days AST in normal range and within 360 days ALT in normal range and within 360 days To be filled at: [id number] Last Refilled: 08/28/23 Recent Visits Date Type Provider Dept 10/07/23 Office Visit Nicolle Phillips FNP [facility] 02/19/23 Office Visit Junior Garcia NP [facility] 01/13/23 Office Visit Junior Garcia NP [facility] 10/21/22 Office Visit Abner Rivera MD [facility] 07/30/22 Office Visit Junior Garcia NP [facility] Showing recent visits within past 540 days with a meds authorizing provider and meeting all other requirements Future Appointments Date Type Provider Dept 01/21/24 Appointment Abner Rivera MD [facility] 01/21/24 Appointment Abner Rivera MD [facility] Showing future appointments within next 150 days with a meds authorizing provider and meeting all other requirements Nicolle Haley MAMc[facility] HospitalTewwqv4795-40-30 11:55:53 Refill request for Lasix or another diuretic for leg edema, attempt to reach patient , VM not accepting messages FRANK 11/12/[address] Hoyos for advice CREATININE Date Value Ref Range Status 11/27/2023 2.10 (H) 0.60 - 1.25 mg/dL Final Cintia Bardales [facility] CenterHkkkei9516-37-36 12:15:00 Images from the original note were not included. Venipuncture collection performed by clean technique on the right anticubitus. Total of 1 attempts were made. Slight pressure and a bandage/dressing were applied to the site(s). The patient experienced no complications. The following specimens were processed according to instructions and sent to [facility] laboratories per lab order on 11/27/23: LT BLUE SST 1 RED LAV 2 PPT 1 DK GREEN (LiHep) DK GREEN (SodH) ROCHA DK BLUE (K2) DK BLUE (S) ACD Blood Culture NIPT/NTD Patient has been identified by and name and was provided with cup, antiseptic towelette, and clean catch instructions. 2 urine specimen(s) sent. Unpreserved 2 Urine Culture Aptima tube Other urine T [facility] HospitalHgivad8898-88-71 08:53:15 Patient does not have voice mailbox set up. Tried to call patient back to let him no that he does not need to fast for his procedure. Breann Aburto [facility] CenterYqjspn3119-91-31 14:39:33 Cely Myers is a 68 year old male Pt calling because he's having a vascular lab done tomorrow, wants to know how he should prepare. Reached out to vas lab with no answer. Unable to tell if it's one he shouldn't eat for from looking at order. Please advise. Emani StaleyMaria [place] 027194-07-22 16:19:57 Rx sent, let patient know, and to follow-up as scheduled. [place] 027194-07-22 08:07:41 Cely Myers is a 68 year old male checking status of his refill. He is out. Please advise, thanks. [facility]/pharmacy #[id number] - [facility] [address] [place] [address] [place] [address] Janina Matthews [place] 556504-07-19 14:28:49 Cely Myers is a 68 year old male and pt is calling back about his refill request for labetaloL [address] Hoyos with cardiology stated he could refill. Pt is out of medication currently. Reached out to AC nurses and they advised clinic. Please advise. Elaine MaxGarrett [place] 53815-07-16 15:54:56 Please review and advise. [place] 53815-07-16 15:24:53 We can refill or PCP can [place] 027194-07-16 15:21:06 Please review and sign if appropriate: Last office visit: 10/16/23 Next office visit: 11/12/23 Requested Prescriptions Pending Prescriptions Disp Refills labetaloL 200 mg tablet 120 tablet 1 Sig: Take 2 tablets by mouth every 12 (twelve) hours. Last refill date: 09/14/23 Notes: S/P CABG (coronary artery bypass graft) [facility] HospitalCabjbp8681-90-22 13:05:40 Returned pt call and notified him he does not have an active labetalol Rx on file and it was last prescribed by PCP. No answer, and no mailbox to leave VM. Pao Maradiaga RNMcCullough-Hyde Memorial HospitalTnvjuk0929-12-70 12:40:55 Cely Myers is a 68 year old male Pt is requesting a refill on labetaloL 200 mg tablet. Please advise [facility]/pharmacy #[id number] [address] Regla CorleyMcCullough-Hyde Memorial HospitalFkvsoq6972-93-70 16:25:48 Medical records received from [facility] scanned in folder and placed in provider basket for review. Chloe BrayMcCullough-Hyde Memorial HospitalQlenck5863-70-63 15:59:25 Images from the original note were not included. Patient was notified of the results below, he verbally understood and agreed to the plan. Thank you Tomeka Hoyos MD P Cardiology Nurse BNP improved. BMP stable. Follow up as scheduled. Lexi Martinez [place] 027194-06-28 08:55:22 Images from the original note were not included. I have attempted without success to contact this patient by phone to will try again later. Tomeka Hoyos MD P Cardiology Nurse BNP improved. BMP stable. Follow up as scheduled. T [place] 027194-06-27 10:45:00 Images from the original note were not included. Venipuncture collection performed by clean technique on the right anticubitus. Total of 1 attempts were made. Slight pressure and a bandage/dressing were applied to the site(s). The patient experienced no complications. The following specimens were processed according to instructions and sent to [facility] laboratories per lab order on 10/23/2023 : LT BLUE SST 1 RED LAV PPT DK GREEN (LiHep) DK GREEN (SodH) ROCHA DK BLUE (K2) DK BLUE (S) ACD Blood Culture NIPT/NTD T [facility] HospitalBotmtm8266-19-28 15:03:29 Pt requesting a refill on mycophenolate 250 mg capsule , pls advise. [facility]/pharmacy #[id number] [address] Emily HaynesRobyn [place] 010134-06-18 15:45:10 [facility] Specialty Pharmacy Monthly Clinical Refill Assessment Cely Myers is a 68 year old male who is followed by the [facility] specialty pharmacy service [facility]. Am I speaking with the patient? Yes Have you missed any doses since the last fill? No Were any of the medications discontinued? No Have any changes been made to the medication, dose, or instructions on how to take it? No Have you started taking any new medications, herbals, or supplements? No Have you been diagnosed with any new medical conditions? No Are you experiencing any acute illness such as the common cold or flu-like symptoms? No Do you have any new allergies to medications or foods? No Have you been to the emergency room, hospital, or urgent care clinic since your last refill? No Have you experienced or do you have any concerns about side effects? No Do you have any concerns or questions about taking or administering the medication as prescribed? No Do you think the medication is working for you? Yes When is the next dose needed? The next dose is needed on 10/18/2023 Would you prefer the medication be shipped to your address? YES, the confirmed shipping address is [address] [address]. Do you have any specific shipping directions? No The results of this survey require review by a specialty pharmacist prior to refilling the medication. The pharmacist will be contacted immediately. Thank you, Rose Leach [facility] Specialty Pharmacy Rose Leach [facility]2024-06-11 10:30:00 Images from the original note were not included. Venipuncture collection performed by clean technique on the right anticubitus. Total of 2 attempts were made. Slight pressure and a bandage/dressing were applied to the site(s). The patient experienced no complications. The following specimens were processed according to instructions and sent to [facility] laboratories per lab order on 10/07/2023 : LT BLUE SST 1 RED LAV 2 PPT DK GREEN (LiHep) DK GREEN (SodH) ROCHA DK BLUE (K2) DK BLUE (S) ACD Blood Culture NIPT/NTD Patient has been identified by and was provided with cup, antiseptic towelette, and clean catch instructions. 1 urine specimen(s) sent. Unpreserved 1 Urine Culture Aptima tube Other urine Only phillips orders per pt request [facility]2024-06-11 10:00:00 Labs still consistent with Pre Diabetes Overweight or obese adults with pre-diabetes or type 2 diabetes should reduce calorie intake while establishing and maintaining healthy eating habits to promote weight loss. The ADA recommends that people with diabetes or pre-diabetes preferentially consume carbohydrates from whole grains, fruits, vegetables, legumes, and dairy products, especially those higher in fiber and lower in glycemic load, while avoiding sugary foods and beverages. A diet rich in monounsaturated fats, long-chain omega-3 fatty acids, and nuts and seeds (i.e., a Mediterranean-style diet) is recommended to optimize glucose metabolism and prevent and treat CVD ([place] [employer]. Diabetes Care). Worsening of kidney function This is important to watch closely I will forward labs to your transplant and kidney doctors as well BnP is increase, Please see Dr. Hoyos as scheduled I will also forward to him [facility] HospitalSkzyju8489-29-47 10:34:25 FRANK 05/26MAR 04 Pao Maradiaga RNMcCullough-Hyde Memorial HospitalYccbhj6700-35-03 09:02:40 Summary: [facility] Specialty Pharm[facility] Monthly Clinical Assessment After reviewing the results of the administered survey, it is appropriate to continue the medication as prescribed. The [facility] Specialty Pharmacy will refill the medication and continue to follow this patient and address any concerns that arise while on therapy with Dupixent. Thank you, Marisela Van RPH [facility] Specialty Pharmacy Marisela Van [facility]2024-05-21 14:08:57 [facility] Specialty Pharmacy Monthly Clinical Refill Assessment Cely Myers is a 68 year old male who is followed by the [facility] specialty pharmacy service for Dupixent. Am I speaking with the patient? Yes Have you missed any doses since the last fill? No Were any of the medications discontinued? No Have any changes been made to the medication, dose, or instructions on how to take it? No Have you started taking any new medications, herbals, or supplements? No Have you been diagnosed with any new medical conditions? No Are you experiencing any acute illness such as the common cold or flu-like symptoms? No Do you have any new allergies to medications or foods? No Have you been to the emergency room, hospital, or urgent care clinic since your last refill? No Have you experienced or do you have any concerns about side effects? No Do you have any concerns or questions about taking or administering the medication as prescribed? No Do you think the medication is working for you? Yes When is the next dose needed? The next dose is needed on 09/24 Would you prefer the medication be shipped to your address? YES, the confirmed shipping address is [address] [address]. Do you have any specific shipping directions? No The results of this survey will be reviewed by a specialty pharmacist and the medication order will be refilled. Thank you, Shyann Fitch [facility] Specialty Pharmacy Shyann FitchMcCullough-Hyde Memorial HospitalJkonuf6000-31-45 10:22:37 Consult/Referral to Cardiology completed. T [facility] HospitalFwjzgi1412-97-08 11:00:35 Spoke to the patient and he is not able to do the 09/11 appt. But was okay for 09/17/23 and appointment moved. Patient verbalized understanding of recommendations from Dr. Mayorga as well and has no further questions or concerns at this time. [facility] HospitalHwuzrc2271-82-26 14:11:36 Patient has an appointment on 09/11/2023 with [facility] and needs PCP referral per insurance. Luke PeralesUNC HealthVnesxt7454-98-80 14:08:35 Patient left requesting call back at 1346. I returned call and spoke to patient. Advised that Cardiology refilled his medication and made an appt for him to see Dr Mayorga this Friday. He expressed understanding and was appreciative of call. Shayy BONILLA PA-C Physician Seasoning Sprayer, Cardiothoracic Surgery Office [phone] PA-PHYSICIAN FOREPART ROUNDER MIDLEVEL PROVIDERMcCullough-Hyde Memorial HospitalOwknia2276-74-90 09:21:35 Attempted to contact the patient but no answer and was unable to leave a voicemail. LMOR for sister or patient to return call to clinic Tentatively scheduled patient Friday09/12/23 at 2:30 as an overbook per provider to be assessed. Patient needs to confirm this appointment is ok or change to a different day and time. 30 day supply of Lasix will be sent to patients local [facility] pharmacy T [facility] HospitalLatotl3954-73-47 09:07:12 Called patient. VM not set up. Unable to leave message. Review of chart shows he also has call in to Dr Mayorga. Shayy BONILLA PA-C Physician Seasoning Sprayer, Cardiothoracic Surgery Office [phone] T [facility] HospitalFlmtdj8426-23-82 16:54:50 Stop drinking soda, continue lasix. Schedule with me in clinic next available ( ok to overbook) T [place] 027194-05-13 16:10:00 Copied from [facility] #[id number]. Topic: Clinical - Medical Advice >> September 08, 2023 4:07 PM Patient Property Technician wrote: Cely Myers is a 68 year old male pt had surgery on 07/[address] Alejandro He is saying for the last couple of weeks his ankles and lower legs have been swelling and can hardly walk.X 2 weeks. Stating he has been drinking soda asking if he should just drink water. He would like to speak with a nurse Please advise [phone] (home) Isabel Suyapa AshishMcCullough-Hyde Memorial HospitalIdswsx3757-48-64 15:54:16 Spoke to the patient and he states he has had bilateral lower extremity swelling down into his ankles for about 2 weeks now. Asked patient if he has been taking his furosemide and he states no he needs a refill. Patient also states he has been drinking sodas 2-3 times a day regularly Asked if the patient has spoken to the surgeon's office since he is post CABG and patient states no he did not have the phone number for him. Provided patient with the surgeon clinic number and informed him Dr. Mayorga would be notified as well. Patient verbalized understanding. [facility] HospitalBphpbl7117-04-79 13:22:38 Copied from [facility] #[id number]. Topic: Clinical - Medical Advice >> September 08, 2023 1:22 PM Patient Property Technician wrote: Cely Myers is a 68 year old male pt had cath procedure 07/[address] Paniagua saying for the last couple of weeks his ankles has been swelling and can hardly walk Please advise Yudy PortilloMcCullough-Hyde Memorial HospitalSqsfba4370-47-82 14:55:23 Summary: [facility] Special[facility] Pharm[facility] Therapy Plan Cely Myers is a 68 year old y/o Black or male patient referred to the [facility] Specialty Pharmacy for management of Dupixent and appropriateness of therapy which is being used to treat the diagnosis of atopic dermatitis. Cely Myers is Restarting therapy, having last received the medication on April 2023. I spoke to the patient and provided re-education and counseling on administering Dupixent Pen. The stage of Cely Myers active disease is Other flaring. The current specialty medication regimen is: Dupixent SUBQ: 600 mg once (given as two 300 mg injections), followed by 300 mg once every other week will be started on: 09/04/2023 Concurrent medications used to treat atopic dermatitis: Triamcinolone cream BID Anti-itch cream daily Previously trialed medications: Topical steroids While speaking with the patient, the Specialty Pharmacist has reviewed and updated the: medication list and allergy list Patient's most recent discharge from a hospital admission related to their specialty condition: The patient has not had a recent hospitalization related to their specialty condition. The [facility] Specialty Pharmacist has reviewed: The H&P, treatment recommendations, and all provider encounters relevant to the management of atopic dermatitis: No contraindication to therapy Comorbid conditions: No contraindication to therapy Risk factors identified related to specialty medication therapy and condition: None identified After review, the prescribed medication is clinically appropriate. Specific requirements for the management of atopic dermatitis: Recommended vaccinations: Influenza Goals of therapy based on therapy plan: Manage symptoms, Achieve remission, and Improve QOL Patient self-reported goals of therapy: Manage symptoms, Achieve remission, and Improve QOL Based on current therapy, patient progress towards established goals include: Progress being made towards goals Re-education and counseling performed during this encounter: Purpose: Explained that the medication blocks certain cells that play a role in the condition and reduce inflammation and flareups associated with those cells. Expected benefit: Explained that the patient will see improvement between 2 to 4 weeks depending on the condition. Maximum efficacy will take 12 weeks. Storage: The medication will be stored in its original container in the refrigerator. Advise the patient to take it out and leave it at room temperature for 30 to 45 minutes to prevent pain and discomfort with cold injections. Preparation: Injection site selection: outer arms, upper thighs, and stomach area. Stomach has the best absorption (1 thumb away from the belly button on the left, right, or top, but never below). Wash hands and clean the area with an alcohol swab. Discussed the product anatomy and instructions. Advised patient to check for clarity of drug concentration prior to injecting by assessing if CLEAR or CLOUDY. Disposal: Advised the patient to dispose pen and needles in a sharps container as they are not reusable. An alternate to the red sharps container is a hard-shell plastic that cannot be punctured through, such as an empty detergent bottle. Common side effects: Signs and symptoms of an infection (upper respiratory infection; cold, fever, chills); conjunctivitis (pink eye). To alleviate the eye swelling, inflammation, redness in the eye region, advised the patient to use a warm compress. If it does not improve, then reach out to HCP. Infection Prevention: Stay updated with inactivated vaccinations - avoid live vaccines. Contact clinic during significant illness (fever, antibiotic use). After counseling and education, utilized teach-back method to ensure patient comprehension on injection technique. Home Delivery Process: If the patient chooses to have the medications delivered home, someone needs to be at home to receive the packaged medication. The medication can only sit in the ice box for 6 to 8 hours, and then it needs to be refrigerated. [facility] will dispense and mail out Dupixent Pen on 09/03/2023, patient will administer on 09/04/2023. The shipping address confirmed was [address] [place] [id number]. A comprehensive Welcome Packet is accessible to all patients via the [facility]'s website. For patients who may not have internet access, a printed copy is included with their medication shipment or provided during medication pick-up. Thank you, Marisela Van RPH [facility] Special[facility] Pharm[facility] Marisela Van HUTMB - Wqflky2224-59-55 13:46:44 Images from the original note were not included. Notes: Name from pharmacy: TAMSULOSIN HCL 0.4 MG CAPSULE Will file in chart as: TAMSULOSIN 0.4 mg 24 hr capsule Sig: TAKE 2 CAPSULES BY MOUTH AT BEDTIME Disp: 180 capsule Refills: 3 Start: 08/28/2023 Class: eRX For: Kidney replaced by transplant, BPH without urinary obstruction Last ordered: 1 year ago (07/22/2022) by Abner Rivera MD Last refill: 06/01/2023 Rx #: [id number] Urology: Benign Prostatic Hyperplasia Tksqub0808/28/2023 12:40 AM Protocol Details Valid encounter within last 12 months To be filled at: [facility]/pharmacy #[id number] - [address] Last Refilled: 06/01/23 Recent Visits Date Type Provider Dept 02/19/23 Office Visit Junior Garcia NP [facility] 01/13/23 Office Visit Junior Garcia NP [facility] 10/21/22 Office Visit Abner Rivera MD [facility] 07/30/22 Office Visit Junior Garcia NP [facility] 05/07/22 Office Visit Junior Garcia NP [facility] 03/12/22 Office Visit Junior Garcia NP [facility] Showing recent visits within past 540 days with a meds authorizing provider and meeting all other requirements Future Appointments No visits were found meeting these conditions. Showing future appointments within next 150 days with a meds authorizing provider and meeting all other requirements Nicolle Haley [facility] CenterGmsdav5520-38-20 09:26:12 Images from the original note were not included. Routed to provider for review. Unable to refill per ambulatory refill guidelines. Notes: Name from pharmacy: PRAVASTATIN SODIUM 40 MG TAB Will file in chart as: PRAVASTATIN 40 mg tablet Sig: TAKE 1 TABLET BY MOUTH EVERYDAY AT BEDTIME Disp: 90 tablet Refills: 3 Start: 08/28/2023 Class: eRX For: Coronary artery disease involving chitina coronary artery of chitina heart without angina pectoris Last ordered: 1 year ago (07/30/2022) by Junior Garcia NP Last refill: 06/01/2023 Rx #: [id number] Cardiovascular: Antilipid - HMG-CoA Reductase Inhibitors Vwgpuh2308/28/2023 12:40 AM Protocol Details Valid encounter within last 12 months Total Cholesterol within 360 days LDL within 360 days HDL within 360 days Triglycerides within 360 days AST in normal range and within 360 days ALT in normal range and within 360 days To be filled at: [id number] [address] Last Refilled: 06/01/23 Recent Visits Date Type Provider Dept 02/19/23 Office Visit Junior Garcia NP [facility] 01/13/23 Office Visit Junior Garcia NP [facility] 10/21/22 Office Visit Abner Rivera MD [facility] 07/30/22 Office Visit Junior Garcia NP [facility] 05/07/22 Office Visit Junior Garcia NP [facility] 03/12/22 Office Visit Junior Garcia NP [facility] Showing recent visits within past 540 days with a meds authorizing provider and meeting all other requirements Future Appointments No visits were found meeting these conditions. Showing future appointments within next 150 days with a meds authorizing provider and meeting all other requirements Nicolle Haley [id number] 08:49:14 Images from the original note were not included. Medical records [facility], placed in Dr. Carranza folder for review. Joyce CrooksMcCullough-Hyde Memorial [id number] 10:54:17 TRANSITIONAL CARE MANAGEMENT ASSESSMENT 07/18/2023 Cely Myers [id number] Cely Myers is a 68 year old Black or male was admitted on 07/02/[address] He was discharged on 07/17/23 with discharge disposition of HR- Routine Discharge. Admitting Physician: Venita Mayorga Discharge Diagnosis: Coronary artery disease Linked Episodes Type: Episode: Status: Noted: Resolved: Last update: Updated by: TRANSITION OF CARE TCM Active 07/17/2023 07/18/2023 10:47 AM Cassius Deras RN Comments: TCM [id number] outreach documentation: Discharge Assessment Chart Assessed: 07/18/23 TCM Outreach Completed: 07/18/23 Do you have a few minutes to speak with me about how you are doing at home?: Yes (Pt reports he is "better".) Discharge Instructions Do you understand your at-home instructions?: Yes (No questions at this time.) Medications Have you filled your prescriptions and do you have them in your home? : Yes Do you know how to take your medications?: Yes (No questions.) Supplies Did you receive applicable home medical supplies/equipment?: N/A Follow Up Appointment Has a follow up appointment been scheduled?: Yes (Pt declined PCP HFU at this time.) Do you have any questions about your follow up appointments?: No Are you able to get to your appointment? Who will be taking you?: Yes (Pt states he has transportation.) Home Health Assistance Has the home health nurse contacted you since you've been home?: N/A (Pt declined services with [facility] at this time. Pt states he has someone that comes by to help him.) Survey - Recognition Is there anything you would like to share about your recent hospitalization, or anyone you would like to recognize?: No Do you have any suggestions for improvement?: No Do you have any other questions or concerns at this time?: Yes (Pt is concerned he will run out of pain medication. Advised to contact the clinic if he runs out and has concerns.) Future Appointments: Future Appointments Provider Department Dept Phone 07/21/2023 8:45 AM Diandra Tillman MD [facility], [facility] [phone] 07/31/2023 2:15 PM [facility], Cardiovascular [facility] [phone] 08/21/2023 10:30 AM Ashwin Weir MD [facility] Dermatology, [facility] [phone] 10/16/2023 3:20 PM Tomeka Hoyos MD [facility] [phone] 11/24/2023 1:00 PM Naomie Doty MD [facility] Transplant Services, [facility] [phone] [facility] [id number] 00:32:29 Problem: Discharge Planning Goal: Adequate for discharge Outcome: Progressing as expected Goal: Adequate to move to next level of care Outcome: Progressing as expected Goal: Knowledge of medication management Outcome: Progressing as expected Problem: Cardiac Output - Decreased Goal: Absence of signs and symptoms of decreased cardiac output Outcome: Progressing as expected Problem: Falls, Risk of Goal: Absence of falls Outcome: Progressing as expected Problem: Pain Goal: Control of pain at or below patient's documented comfort goal Outcome: Progressing as expected Goal: Reduction in pain sensation Outcome: Progressing as expected Problem: Tissue Perfusion, Cardiopulmonary - Altered Goal: Circulatory function within specified parameters Outcome: Progressing as expected Problem: Bleeding, Risk of Goal: Absence of impaired coagulation signs and symptoms Outcome: Progressing as expected Goal: Absence of active bleeding Outcome: Progressing as expected Problem: Respiratory Function - Impaired Goal: Able to cough effectively Outcome: Progressing as expected Goal: Adequate oxygenation Outcome: Progressing as expected Goal: Adequate work of breathing Outcome: Progressing as expected Goal: Patent airway Outcome: Progressing as expected Cooper Sorenson RNMcCullough-Hyde Memorial [id number] 20:55:52 A patient w/ normal wob. Richie Scott RTMcCullough-Hyde Memorial [id number] 10:28:38 Unable to Determine [facility] [id number] 07:41:00 Problem: Discharge Planning Goal: Adequate for discharge Outcome: Progressing as expected Goal: Adequate to move to next level of care Outcome: Progressing as expected Goal: Knowledge of medication management Outcome: Progressing as expected Problem: Cardiac Output - Decreased Goal: Absence of signs and symptoms of decreased cardiac output Outcome: Progressing as expected Problem: Falls, Risk of Goal: Absence of falls Outcome: Progressing as expected Problem: Pain Goal: Control of pain at or below patient's documented comfort goal Outcome: Progressing as expected Goal: Reduction in pain sensation Outcome: Progressing as expected Problem: Tissue Perfusion, Cardiopulmonary - Altered Goal: Circulatory function within specified parameters Outcome: Progressing as expected Problem: Bleeding, Risk of Goal: Absence of impaired coagulation signs and symptoms Outcome: Progressing as expected Goal: Absence of active bleeding Outcome: Progressing as expected Problem: Respiratory Function - Impaired Goal: Able to cough effectively Outcome: Progressing as expected Goal: Adequate oxygenation Outcome: Progressing as expected Goal: Adequate work of breathing Outcome: Progressing as expected Goal: Patent airway Outcome: Progressing as expected [facility] Tyree Lincoln RNMcCullough-Hyde Memorial [id number] 00:59:15 Problem: Discharge Planning Goal: Adequate for discharge Outcome: Progressing as expected Goal: Adequate to move to next level of care Outcome: Progressing as expected Goal: Knowledge of medication management Outcome: Progressing as expected Problem: Cardiac Output - Decreased Goal: Absence of signs and symptoms of decreased cardiac output Outcome: Progressing as expected Problem: Falls, Risk of Goal: Absence of falls Outcome: Progressing as expected Problem: Pain Goal: Control of pain at or below patient's documented comfort goal Outcome: Progressing as expected Goal: Reduction in pain sensation Outcome: Progressing as expected Problem: Tissue Perfusion, Cardiopulmonary - Altered Goal: Circulatory function within specified parameters Outcome: Progressing as expected Problem: Bleeding, Risk of Goal: Absence of impaired coagulation signs and symptoms Outcome: Progressing as expected Goal: Absence of active bleeding Outcome: Progressing as expected Problem: Respiratory Function - Impaired Goal: Able to cough effectively Outcome: Progressing as expected Goal: Adequate oxygenation Outcome: Progressing as expected Goal: Adequate work of breathing Outcome: Progressing as expected Goal: Patent airway Outcome: Progressing as expected [facility]2024-03-19 22:58:34 A patient w/ normal wob. [place] [id number] 05:35:56 Problem: Discharge Planning Goal: Adequate for discharge Outcome: Progressing as expected Goal: Adequate to move to next level of care Outcome: Progressing as expected Goal: Knowledge of medication management Outcome: Progressing as expected Problem: Cardiac Output - Decreased Goal: Absence of signs and symptoms of decreased cardiac output Outcome: Progressing as expected Problem: Falls, Risk of Goal: Absence of falls Outcome: Progressing as expected Problem: Pain Goal: Control of pain at or below patient's documented comfort goal Outcome: Progressing as expected Goal: Reduction in pain sensation Outcome: Progressing as expected Problem: Tissue Perfusion, Cardiopulmonary - Altered Goal: Circulatory function within specified parameters Outcome: Progressing as expected Problem: Bleeding, Risk of Goal: Absence of impaired coagulation signs and symptoms Outcome: Progressing as expected Goal: Absence of active bleeding Outcome: Progressing as expected [facility] Esther Riley RNMcCullough-Hyde Memorial [id number] 05:23:57 Problem: Discharge Planning Goal: Adequate for discharge Outcome: Progressing as expected Goal: Adequate to move to next level of care Outcome: Progressing as expected Goal: Knowledge of medication management Outcome: Progressing as expected Problem: Cardiac Output - Decreased Goal: Absence of signs and symptoms of decreased cardiac output Outcome: Progressing as expected Problem: Falls, Risk of Goal: Absence of falls Outcome: Progressing as expected Problem: Pain Goal: Control of pain at or below patient's documented comfort goal Outcome: Progressing as expected Goal: Reduction in pain sensation Outcome: Progressing as expected Problem: Tissue Perfusion, Cardiopulmonary - Altered Goal: Circulatory function within specified parameters Outcome: Progressing as expected Problem: Bleeding, Risk of Goal: Absence of impaired coagulation signs and symptoms Outcome: Progressing as expected Goal: Absence of active bleeding Outcome: Progressing as expected [facility]2024-03-16 22:42:44 Problem: Discharge Planning Goal: Adequate for discharge Outcome: Progressing as expected Goal: Adequate to move to next level of care Outcome: Progressing as expected Goal: Knowledge of medication management Outcome: Progressing as expected Problem: Cardiac Output - Decreased Goal: Absence of signs and symptoms of decreased cardiac output Outcome: Progressing as expected Problem: Falls, Risk of Goal: Absence of falls Outcome: Progressing as expected Problem: Pain Goal: Control of pain at or below patient's documented comfort goal Outcome: Progressing as expected Goal: Reduction in pain sensation Outcome: Progressing as expected Problem: Tissue Perfusion, Cardiopulmonary - Altered Goal: Circulatory function within specified parameters Outcome: Progressing as expected Problem: Bleeding, Risk of Goal: Absence of impaired coagulation signs and symptoms Outcome: Progressing as expected Goal: Absence of active bleeding Outcome: Progressing as expected Tressa Nichols [facility] [id number] 17:42:12 Problem: Discharge Planning Goal: Adequate for discharge Outcome: Progressing as expected Goal: Adequate to move to next level of care Outcome: Progressing as expected Goal: Knowledge of medication management Outcome: Progressing as expected Problem: Cardiac Output - Decreased Goal: Absence of signs and symptoms of decreased cardiac output Outcome: Progressing as expected Problem: Falls, Risk of Goal: Absence of falls Outcome: Progressing as expected Problem: Pain Goal: Control of pain at or below patient's documented comfort goal Outcome: Progressing as expected Goal: Reduction in pain sensation Outcome: Progressing as expected Problem: Tissue Perfusion, Cardiopulmonary - Altered Goal: Circulatory function within specified parameters Outcome: Progressing as expected Problem: Bleeding, Risk of Goal: Absence of impaired coagulation signs and symptoms Outcome: Progressing as expected Goal: Absence of active bleeding Outcome: Progressing as expected Misbah Lira [facility] [id number] 17:39:32 Problem: Discharge Planning Goal: Adequate for discharge Outcome: Progressing as expected Goal: Adequate to move to next level of care Outcome: Progressing as expected Goal: Knowledge of medication management Outcome: Progressing as expected Problem: Cardiac Output - Decreased Goal: Absence of signs and symptoms of decreased cardiac output Outcome: Progressing as expected Problem: Falls, Risk of Goal: Absence of falls Outcome: Progressing as expected Problem: Pain Goal: Control of pain at or below patient's documented comfort goal Outcome: Progressing as expected Goal: Reduction in pain sensation Outcome: Progressing as expected Problem: Tissue Perfusion, Cardiopulmonary - Altered Goal: Circulatory function within specified parameters Outcome: Progressing as expected Problem: Bleeding, Risk of Goal: Absence of impaired coagulation signs and symptoms Outcome: Progressing as expected Goal: Absence of active bleeding Outcome: Progressing as expected [facility]2024-03-15 04:12:16 Problem: Discharge Planning Goal: Adequate for discharge Outcome: Progressing as expected Goal: Adequate to move to next level of care Outcome: Progressing as expected Goal: Knowledge of medication management Outcome: Progressing as expected Problem: Cardiac Output - Decreased Goal: Absence of signs and symptoms of decreased cardiac output Outcome: Progressing as expected Problem: Falls, Risk of Goal: Absence of falls Outcome: Progressing as expected Problem: Pain Goal: Control of pain at or below patient's documented comfort goal Outcome: Progressing as expected Goal: Reduction in pain sensation Outcome: Progressing as expected Problem: Bleeding, Risk of Goal: Absence of impaired coagulation signs and symptoms Outcome: Progressing as expected Goal: Absence of active bleeding Outcome: Progressing as expected [facility] Steffen Sánchez [facility] [id number] 23:51:47 Problem: Discharge Planning Goal: Adequate for discharge Outcome: Progressing as expected Goal: Adequate to move to next level of care Outcome: Progressing as expected Goal: Knowledge of medication management Outcome: Progressing as expected Problem: Cardiac Output - Decreased Goal: Absence of signs and symptoms of decreased cardiac output Outcome: Progressing as expected Problem: Falls, Risk of Goal: Absence of falls Outcome: Progressing as expected Problem: Pain Goal: Control of pain at or below patient's documented comfort goal Outcome: Progressing as expected Goal: Reduction in pain sensation Outcome: Progressing as expected Problem: Bleeding, Risk of Goal: Absence of impaired coagulation signs and symptoms Outcome: Progressing as expected Goal: Absence of active bleeding Outcome: Progressing as expected [facility]2024-03-13 04:12:33 Problem: Discharge Planning Goal: Adequate for discharge Outcome: Progressing as expected Goal: Adequate to move to next level of care Outcome: Progressing as expected Goal: Knowledge of medication management Outcome: Progressing as expected Problem: Cardiac Output - Decreased Goal: Absence of signs and symptoms of decreased cardiac output Outcome: Progressing as expected Problem: Falls, Risk of Goal: Absence of falls Outcome: Progressing as expected Problem: Pain Goal: Control of pain at or below patient's documented comfort goal Outcome: Progressing as expected Goal: Reduction in pain sensation Outcome: Progressing as expected Problem: Tissue Perfusion, Cardiopulmonary - Altered Goal: Circulatory function within specified parameters Outcome: Progressing as expected Problem: Bleeding, Risk of Goal: Absence of impaired coagulation signs and symptoms Outcome: Progressing as expected Goal: Absence of active bleeding Outcome: Progressing as expected Edward Sharpe [facility] [id number] 12:28:50 1230: Patients sister (Shayy) phoned and given an update and future room assignment. T Tressa Moon [facility] [id number] 00:03:00 FACULTY SURGEON: Jt Alejandro MD RESIDENT SURGEON: FOREPART ROUNDER OR TEACHING RESIDENT: Wayne Sotomayor MD PREOPERATIVE DIAGNOSIS: Coronary artery disease. POSTOPERATIVE DIAGNOSIS: Coronary artery disease. OPERATION: Coronary artery bypass x 3. INDICATIONS: The patient is a 68-year-old man with exertional chest tightness and high-grade LAD and right coronary disease. He has preserved left ventricular systolic function and significant global left ventricular hypertrophy. He had a kidney transplant in 2004 and has a primary arteriovenous fistula in the left arm that continues to work. He is taken for revascularization. PROCEDURE: He was anesthetized and orotracheally intubated without incident. Transesophageal echo confirmed severe LV hypertrophy. We used a median sternotomy and took the left internal mammary artery down to be used as a free graft because of the left arm shunt. Simultaneously, PATRIC Ann, harvested greater saphenous vein from the upper and middle parts of the left leg using endoscopic technique. We heparinized the patient and cannulated the ascending aorta and right atrial appendage and went on bypass. We cooled the patient, crossclamped the aorta and gave antegrade and retrograde blood cardioplegia. We also gave cardioplegia after each graft. We placed 2 vein graft proximal anastomoses and 1 free left internal mammary artery proximal anastomosis. We then de-aired the ascending aorta. The rightward-going graft went to the posterior descending and made an end-to-side anastomosis. The leftward-going vein graft went to the 2nd diagonal, which was quite a large vessel, and made an end-to-side anastomosis. Finally, the free left internal mammary artery was anastomosed to the LAD. All target vessels were 1.5 mm or larger. We released the aortic crossclamp and while rewarming placed right atrial and right ventricular epicardial pacing wires as well as 2 mediastinal and bilateral pleural drains. Once he was warmed, we weaned from bypass with atrial pacing and no inotropes. He tolerated protamine well and decannulation was uneventful. We closed routinely. He tolerated the procedure well. MD ROBERT Epperson/LIBRA Chen#: [id number] [facility] - [id number] 00:03:00 FACULTY SURGEON: Jt Alejandro MD RESIDENT SURGEON: FOREPART ROUNDER OR TEACHING RESIDENT: Wayne Sotomayor MD PREOPERATIVE DIAGNOSIS: Excess bleeding after coronary artery bypass grafting. POSTOPERATIVE DIAGNOSIS: Excess bleeding after coronary artery bypass grafting. OPERATION: Mediastinal exploration for bleeding. INDICATIONS: The patient is a 68-year-old man with coronary disease who underwent three-vessel coronary bypass earlier today. He has had excess bleeding from his chest drains in the ICU despite replacement of clotting factors. He is taken for exploration for bleeding. PROCEDURE: He arrived hemodynamically stable and, after the usual prep and drape, we opened the sternum. We found very little blood in the mediastinum and the chest drains appeared to have drained it all out quite effectively. We placed pericardial stays and checked all the grafts and they looked good and the mediastinal tissues and found no real bleeders other than a little oozing from the manubrium. We cauterized this and cleaned out the drains and then reclosed the sternotomy routinely. He tolerated the procedure well. MD ROBERT Epperson/LIBRA Chen#: [id number] [facility] [id number] 18:42:53 Problem: Discharge Planning Goal: Adequate for discharge Outcome: Progressing as expected Goal: Adequate to move to next level of care Outcome: Progressing as expected Goal: Knowledge of medication management Outcome: Progressing as expected Jesu Mclaughlin RNMcCullough-Hyde Memorial [id number] 23:25:44 Problem: Discharge Planning Goal: Adequate for discharge Outcome: Progressing as expected Goal: Adequate to move to next level of care Outcome: Progressing as expected Goal: Knowledge of medication management Outcome: Progressing as expected Problem: Cardiac Output - Decreased Goal: Absence of signs and symptoms of decreased cardiac output Outcome: Progressing as expected Problem: Falls, Risk of Goal: Absence of falls Outcome: Progressing as expected Problem: Pain Goal: Control of pain at or below patient's documented comfort goal Outcome: Progressing as expected Goal: Reduction in pain sensation Outcome: Progressing as expected Problem: Tissue Perfusion, Cardiopulmonary - Altered Goal: Circulatory function within specified parameters Outcome: Progressing as expected Problem: Bleeding, Risk of Goal: Absence of impaired coagulation signs and symptoms Outcome: Progressing as expected Goal: Absence of active bleeding Outcome: Progressing as expected Thu Chinchilla [facility] [id number] 11:30:48 Problem: Discharge Planning Goal: Adequate for discharge Outcome: Progressing as expected Goal: Adequate to move to next level of care Outcome: Progressing as expected Goal: Knowledge of medication management Outcome: Progressing as expected Problem: Cardiac Output - Decreased Goal: Absence of signs and symptoms of decreased cardiac output Outcome: Progressing as expected Problem: Falls, Risk of Goal: Absence of falls Outcome: Progressing as expected Problem: Pain Goal: Control of pain at or below patient's documented comfort goal Outcome: Progressing as expected Goal: Reduction in pain sensation Outcome: Progressing as expected Problem: Tissue Perfusion, Cardiopulmonary - Altered Goal: Circulatory function within specified parameters Outcome: Progressing as expected Problem: Bleeding, Risk of Goal: Absence of impaired coagulation signs and symptoms Outcome: Progressing as expected Goal: Absence of active bleeding Outcome: Progressing as expected Cary Echeverria [facility] [id number] 21:47:29 Problem: Discharge Planning Goal: Adequate for discharge Outcome: Progressing as expected Goal: Adequate to move to next level of care Outcome: Progressing as expected Goal: Knowledge of medication management Outcome: Progressing as expected Problem: Cardiac Output - Decreased Goal: Absence of signs and symptoms of decreased cardiac output Outcome: Progressing as expected Problem: Falls, Risk of Goal: Absence of falls Outcome: Progressing as expected Problem: Pain Goal: Control of pain at or below patient's documented comfort goal Outcome: Progressing as expected Goal: Reduction in pain sensation Outcome: Progressing as expected [facility]2024-03-09 21:46:02 AV fistula Non functional/not in use [facility] Mily Jama [place] [id number] 01:19:21 Problem: Discharge Planning Goal: Adequate for discharge Outcome: Progressing as expected Goal: Adequate to move to next level of care Outcome: Progressing as expected Goal: Knowledge of medication management Outcome: Progressing as expected Problem: Cardiac Output - Decreased Goal: Absence of signs and symptoms of decreased cardiac output Outcome: Progressing as expected Problem: Falls, Risk of Goal: Absence of falls Outcome: Progressing as expected Problem: Pain Goal: Control of pain at or below patient's documented comfort goal Outcome: Progressing as expected Goal: Reduction in pain sensation Outcome: Progressing as expected Problem: Tissue Perfusion, Cardiopulmonary - Altered Goal: Circulatory function within specified parameters Outcome: Progressing as expected Problem: Bleeding, Risk of Goal: Absence of impaired coagulation signs and symptoms Outcome: Progressing as expected Goal: Absence of active bleeding Outcome: Progressing as expected CIPAL SOFTWARE ARCHITECT Xu Olivarez [facility] [id number] 17:57:10 Patient to floor right groin c/d/I. CIPAL SOFTWARE ARCHITECT Edwige Dunham [facility] CenterUfapny0959-03-91 23:10:35 Problem: Discharge Planning Goal: Adequate for discharge Outcome: Progressing as expected Goal: Adequate to move to next level of care Outcome: Progressing as expected Goal: Knowledge of medication management Outcome: Progressing as expected Problem: Cardiac Output - Decreased Goal: Absence of signs and symptoms of decreased cardiac output Outcome: Progressing as expected Problem: Falls, Risk of Goal: Absence of falls Outcome: Progressing as expected Problem: Pain Goal: Control of pain at or below patient's documented comfort goal Outcome: Progressing as expected Goal: Reduction in pain sensation Outcome: Progressing as expected Problem: Tissue Perfusion, Cardiopulmonary - Altered Goal: Circulatory function within specified parameters Outcome: Progressing as expected Problem: Bleeding, Risk of Goal: Absence of impaired coagulation signs and symptoms Outcome: Progressing as expected Goal: Absence of active bleeding Outcome: Progressing as expected CIPAL SOFTWARE ARCHITECT Tyron Dinh [facility] [id number] 02:15:24 Problem: Discharge Planning Goal: Adequate for discharge Outcome: Progressing as expected Goal: Adequate to move to next level of care Outcome: Progressing as expected Goal: Knowledge of medication management Outcome: Progressing as expected Problem: Cardiac Output - Decreased Goal: Absence of signs and symptoms of decreased cardiac output Outcome: Progressing as expected Problem: Falls, Risk of Goal: Absence of falls Outcome: Progressing as expected Problem: Pain Goal: Control of pain at or below patient's documented comfort goal Outcome: Progressing as expected Goal: Reduction in pain sensation Outcome: Progressing as expected Problem: Tissue Perfusion, Cardiopulmonary - Altered Goal: Circulatory function within specified parameters Outcome: Progressing as expected Problem: Bleeding, Risk of Goal: Absence of impaired coagulation signs and symptoms Outcome: Progressing as expected Goal: Absence of active bleeding Outcome: Progressing as expected [place] [id number] 22:03:34 Patient transferred to [place] [id number] for diagnosis of chest pain in adult, Non-Stemi (non-ST elevated myocardial infarction), unstable angina Patient agrees to transfer/admit plan and verbalized understanding of plan of care, family aware of plan Patient awake alert, oriented, resp reg unlabored, skin w/d PIV patent x2 infusing heparin at 10 ml/hr, no s/s infiltration noted, No adverse reaction to medications given while in ED. Report given to [facility] EMS personnel CIPAL SOFTWARE ARCHITECT Christina Proctor [place] [id number] 22:02:24 Nurse Report Report given to ALFREDO Mehta. Chief complaint, assessment findings, infusion verify and orders reviewed. Plan of care discussed with both nurses. Patient members verbalized understanding. Christina Proctor RN [place] [address]-03-06 21:12:[address] [facility] Ambulance ETA 30 min per Jerrod Cason [place] [id number] 19:47:36 Pt arrived ambulatory with complaints on intermittent chest pain for the last few days. Pt reports it feels like the time he needed a stent in 2009. Pt reports fatigue, stiff neck. Pt called for a cardiology appt but decided to come to ED instead. 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 treatment: None Travel and Exposure Screening: Symptoms Does patient have any of these symptoms?: (not recorded) Exposure Screening Has patient had contact with someone with a communicable disease in the last month?: (not recorded) Diseases exposed to:: (not recorded) Is Patient ?: (not recorded) Exposure Date: (not recorded) Chief Complaint: Chief Complaint Patient presents with Chest Pain History of Present Illness: Pt here for chest pain, pt has hx of stents, has been using nitro round the clock for a couple days He is under stress w grandkids so has been smoking He has htn, cad, kidney transplant No fever, no coughing no leg swelling Has dyspnea on exertion increasing chest pain, fatigu, Improves with rest, improves with nitro Past Medical History/Immunizations: Past Medical History: Diagnosis Date Abnormal SPEP [...] 12/31/2016 Severe obstructive sleep apnea Syphilis 09/11/2016 Tetanus received in last 5 years: Unknown Allergies: No Known Allergies Past Social History: Tobacco Use Former; 0.50 packs/day; Types: Cigarettes Smokeless Tobacco: Never used smokeless tobacco. Comments: Denies. Former smoker , 0.5 ppd Quit 6 yrs ago Alcohol Use No. Comments: social drinker, no etoh after transplant Past Surgical History: Past Surgical History: Procedure Laterality Date ARTERIOVENOUS FISTULA CREATION left upper extremity BIOPSY OF KIDNEY,PERCUTANEOUS 03/18/2005, 03/22/2005 CADAVERIC KIDNEY TRANSPLANT RECIPIENT Bilateral 03/08/2005 CHOLECYSTECTOMY 09/28/2014 COLONOSCOPY N/A 10/17/2016 Surgeon: Cheri Mcintyre MD; Location: [facility] OR Location COLONOSCOPY N/A 11/07/2020 Surgeon: Jasmyne Roper MD; Location: [facility] OR Location LIVER BIOPSY 03/27/2004 NEPHRECTOMY 05/18/2004 Bilateral OPEN CHOLECYSTECTOMY N/A 09/28/2014 Surgeon: Ramon Landry MD; Location: [facility] OR LOCATION OTHER 04/26/2005 Drainage of fluid PARATHYROIDECTOMY PERCUTANEOUS NEPHROSTOMY TUBE PLACEMENT 04/29/2005 NE PATIENT HAS A CORONARY ARTERY STENT TRANSURETHRAL PROSTATE VAPORIZATION N/A 02/12/2019 Surgeon: Williams Ashley MD; Location: [place] OR Location VOIDING CYSTOURETHROGRAM 02/08/2004 XR KUB 02/07/2004, 03/08/2005, 03/24/2005 Review of Systems: Review of Systems Constitutional: Positive for fatigue. Respiratory: Positive for shortness of breath. Negative for choking. Cardiovascular: Positive for chest pain. Negative for palpitations and leg swelling. Neurological: Positive for weakness. All other systems reviewed and are negative. Physical Exam: ED Triage Vitals [07/02/231948] Weight 90.7 kg (200 lb) Actual or estimated Estimated by patient/family report Height 1.753 m (5' 9") BP (!) 176/98 Pulse 77 Resp 16 Temp 36.9 ?C (98.5 ?F) Temp source Oral SpO2 96 % Measured on Room air Physical Exam Vitals and nursing note reviewed. Constitutional: Appearance: He is normal weight. HENT: Head: Normocephalic. Right Ear: External ear normal. Left Ear: External ear normal. Nose: Nose normal. Mouth/Throat: Mouth: Mucous membranes are moist. Eyes: Extraocular Movements: Extraocular movements intact. Pupils: Pupils are equal, round, and reactive to light. Cardiovascular: Rate and Rhythm: Normal rate and regular rhythm. Pulmonary: Effort: Pulmonary effort is normal. Abdominal: General: Abdomen is flat. Musculoskeletal: General: No swelling or deformity. Normal range of motion. Cervical back: Normal range of motion. Skin: General: Skin is warm. Capillary Refill: Capillary refill takes less than 2 seconds. Neurological: General: No focal deficit present. Mental Status: He is alert and oriented to person, place, and time. Radiology: No orders to display Lab Results: Lab Results - No data to display EKG: If EKG completed, see Procedure Note. Orders and Treatments: Orders Placed This Encounter Procedures XR CHEST 1 VW Comp. Metabolic Panel (71947) Cbc with Diff Troponin I N-Terminal Pro-Bnp Orders Placed This Encounter Medications aspirin tablet 325 mg nitroglycerin (NITROL) 2 % ointment 0.5 Inch First Provider Eval: ED Events Date/Time Event User Comments 07/02/231947 Medical Screening Begins SANKET BLAIR MD -- 07/02/231947 First Provider Evaluation SANKET BLAIR MD -- ED COURSE Diagnosis/Impression as of 07/02/232053 Chest pain in adult Non-STEMI (non-ST elevated myocardial infarction) Unstable angina Procedures: EKG-12 Lead ROUTINE ONCE Date/Time: 07/02/2023 7:59 PM Performed by: Sanket Blair MD Authorized by: Sanekt Blair MD Previous ECG: Previous ECG: Compared to current Similarity: Changes noted Rate: ECG rate: 77 ECG rate assessment: normal Rhythm: Rhythm: sinus rhythm QRS: QRS axis: Normal QRS intervals: Wide QRS conduction: RBBB ST segments: ST segments: Non-specific T waves: T waves: non-specific Critical Care Performed by: Sanket Blair MD Authorized by: Sanket Blair MD Critical care provider statement: Critical care time (minutes): 34 Critical care was necessary to treat or prevent imminent or life-threatening deterioration of the following conditions: Cardiac failure and circulatory failure Critical care was time spent personally by me on the following activities: Blood draw for specimens, discussions with consultants, ordering and performing treatments and interventions, ordering and review of laboratory studies, ordering and review of radiographic studies, re-evaluation of patient's condition and review of old charts MDM: Medical Decision Making Pt here for chest pain, pt has hx of stents, has been using nitro round the clock for a couple days He is under stress w grandkids so has been smoking He has htn, cad, kidney transplant No fever, no coughing no leg swelling Has dyspnea on exertion increasing chest pain, fatigue, Improves with rest, improves with nitro Ddx ami unstable angina acs EKG has changes but not st changes, rbbb is wider, ' Asa given nitropast given Pt pain improved Trop elevated Bnp elevated Pt story concerning for usntable angina vs acs Discussed with dr Hoyos, will tx Discussed with cardiology in [place] Heparin drip started Hospital Encounter on 07/02/23 -XR CHEST 1 VW: Narrative PROCEDURE: XR CHEST 1 VW CLINICAL INDICATION: chest pain COMPARISON: Chest radiograph dated 04/13/2020 FINDINGS: No focal consolidation is identified. Hilar vascular congestion noted. No pleural effusion or pneumothorax is seen. The cardiomediastinal silhouette is enlarged. No acute bony abnormality. Impression No acute intrathoracic abnormality. Preliminary Report Dictated by Resident: Gricel Clay Recent Results (from the past 24 hour(s)) -Comp. Metabolic Panel ([id number]): Collection Time: 07/02/23 7:55 PM Result Value Ref Range NA 141 135 - 145 mmol/L K 3.6 3.5 - 5.0 mmol/L CL 111 (H) 98 - 108 mmol/L CO2 TOTAL 26 23 - 31 mmol/L AGAP 4 2 - 16 BUN 20 7 - 23 mg/dL GLUCOSE 118 (H) 70 - 110 mg/dL CREATININE 1.55 (H) 0.60 - 1.25 mg/dL TOTAL BILI 0.6 0.1 - 1.1 mg/dL CALCIUM 10.3 8.6 - 10.6 mg/dL T PROTEIN 8.2 6.3 - 8.2 g/dL ALBUMIN 4.0 3.5 - 5.0 g/dL ALK PHOS 81 34 - 122 U/L ALTv 22 5 - 50 U/L AST(SGOT) 46 (H) 13 - 40 U/L eGFR 48.8 mL/min/1.73m2 -Cbc with Diff: Collection Time: 07/02/23 7:55 PM Result Value Ref Range WBC 4.90 4.20 - 10.70 10*3/?L RBC 4.25 (L) 4.26 - 5.52 10*6/?L HGB 13.2 12.2 - 16.4 g/dL HCT 39.9 38.4 - 49.3 % MCV 93.9 81.7 - 95.6 fL MCH 31.1 26.1 - 32.7 pg MCHC 33.1 31.2 - 35.0 g/dL RDW-SD 48.3 38.5 - 51.6 fL RDW-CV 14.2 12.1 - 15.4 % PLT 163 150 - 328 10*3/?L MPV 11.3 9.8 - 13.0 fL NRBC/100 WBC 0.0 0.0 - 10.0 /100 WBCs NRBC x103<0.01 10*3/?L GRAN MAT (NEUT) % 61.1 % IMM GRAN % 0.40 % LYMPH % 21.8 % MONO % 11.0 % EOS % 4.5 % BASO % 1.2 % GRAN MAT x103(ANC) 2.99 1.99 - 6.95 10*3/uL IMM GRAN x103<0.03 0.00 - 0.06 10*3/uL LYMPH x1031.07 (L) 1.09 - 3.23 10*3/uL MONO x1030.54 0.36 - 1.02 10*3/uL EOS x1030.22 0.06 - 0.53 10*3/uL BASO x1030.06 0.01 - 0.09 10*3/uL -Troponin I: Collection Time: 07/02/23 7:55 PM Result Value Ref Range TROPONIN I 0.077 (H) <=0.034 ng/mL -N-Terminal Pro-Bnp: Collection Time: 07/02/23 7:55 PM Result Value Ref Range NT-proBNP 1,580 (H) <=125 pg/mL Problems Addressed: Chest pain in adult: Details: Cbc cmp trop heparin aspirin nitro cards consult and tx Unstable angina: Details: Discussed w dr hoyos, cbc cmp trop bnp and tx Amount and/or Complexity of Data Reviewed Labs: ordered. Details: Recent Results (from the past 24 hour(s)) -Comp. Metabolic Panel ([id number]): Collection Time: 07/02/23 7:55 PM Result Value Ref Range NA 141 135 - 145 mmol/L K 3.6 3.5 - 5.0 mmol/L CL 111 (H) 98 - 108 mmol/L CO2 TOTAL 26 23 - 31 mmol/L AGAP 4 2 - 16 BUN 20 7 - 23 mg/dL GLUCOSE 118 (H) 70 - 110 mg/dL CREATININE 1.55 (H) 0.60 - 1.25 mg/dL TOTAL BILI 0.6 0.1 - 1.1 mg/dL CALCIUM 10.3 8.6 - 10.6 mg/dL T PROTEIN 8.2 6.3 - 8.2 g/dL ALBUMIN 4.0 3.5 - 5.0 g/dL ALK PHOS 81 34 - 122 U/L ALTv 22 5 - 50 U/L AST(SGOT) 46 (H) 13 - 40 U/L eGFR 48.8 mL/min/1.73m2 -Cbc with Diff: Collection Time: 07/02/23 7:55 PM Result Value Ref Range WBC 4.90 4.20 - 10.70 10*3/?L RBC 4.25 (L) 4.26 - 5.52 10*6/?L HGB 13.2 12.2 - 16.4 g/dL HCT 39.9 38.4 - 49.3 % MCV 93.9 81.7 - 95.6 fL MCH 31.1 26.1 - 32.7 pg MCHC 33.1 31.2 - 35.0 g/dL RDW-SD 48.3 38.5 - 51.6 fL RDW-CV 14.2 12.1 - 15.4 % PLT 163 150 - 328 10*3/?L MPV 11.3 9.8 - 13.0 fL NRBC/100 WBC 0.0 0.0 - 10.0 /100 WBCs NRBC x103<0.01 10*3/?L GRAN MAT (NEUT) % 61.1 % IMM GRAN % 0.40 % LYMPH % 21.8 % MONO % 11.0 % EOS % 4.5 % BASO % 1.2 % GRAN MAT x103(ANC) 2.99 1.99 - 6.95 10*3/uL IMM GRAN x103<0.03 0.00 - 0.06 10*3/uL LYMPH x1031.07 (L) 1.09 - 3.23 10*3/uL MONO x1030.54 0.36 - 1.02 10*3/uL EOS x1030.22 0.06 - 0.53 10*3/uL BASO x1030.06 0.01 - 0.09 10*3/uL -Troponin I: Collection Time: 07/02/23 7:55 PM Result Value Ref Range TROPONIN I 0.077 (H) <=0.034 ng/mL -N-Terminal Pro-Bnp: Collection Time: 07/02/23 7:55 PM Result Value Ref Range NT-proBNP 1,580 (H) <=125 pg/mL Radiology: ordered. Details: Hospital Encounter on 07/02/23 -XR CHEST 1 VW: Narrative PROCEDURE: XR CHEST 1 VW CLINICAL INDICATION: chest pain COMPARISON: Chest radiograph dated 04/13/2020 FINDINGS: No focal consolidation is identified. Hilar vascular congestion noted. No pleural effusion or pneumothorax is seen. The cardiomediastinal silhouette is enlarged. No acute bony abnormality. Impression No acute intrathoracic abnormality. Preliminary Report Dictated by Resident: Gricel Clay Risk OTC drugs. Prescription drug management. Decision regarding hospitalization. Flowsheet Documentation: Scoring Tools: No data recorded Disposition/Condition: ED Disposition None Discharge Medications: Patient's Medications START taking these medications No medications on file CONTINUE taking these medications which have NOT CHANGED ALLOPURINOL 100 MG TABLET Take 1 tablet by mouth in the morning. ASPIRIN 325 MG TABLET Take 1 Tab by mouth daily. CLOBETASOL 0.05 % CREAM Apply to area(s) 2 (two) times daily. Only to itchy areas DOCUSATE (COLACE) 100 MG CAPSULE Take 1 capsule by mouth once daily as needed for Constipation. DUPILUMAB (DUPIXENT PEN) 300 MG/2 ML PNIJ inject 1 Pen under the skin every 2 (two) weeks. EZETIMIBE 10 MG TABLET Take 1 tablet by mouth in the morning. FLUOCINONIDE 0.05 % CREAM Apply to area(s) 2 (two) times daily. FLUTICASONE PROPIONATE 220 MCG/ACTUATION INHALER INHALE 1 PUFF BY MOUTH EVERY 12 (TWELVE) HOURS. RINSE MOUTH AFTER EACH USE. FLUTICASONE PROPIONATE 50 MCG/ACTUATION NASAL SPRAY Use 2 Sprays in each nostril in the morning. FUROSEMIDE 20 MG TABLET Take 1 tablet by mouth as needed (swelling). LABETALOL 100 MG TABLET Take 300mg and 100mg together for a total of 400mg BID LABETALOL 300 MG TABLET Take 300mg and 100mg together for a total of 400mg BID LISINOPRIL 5 MG TABLET Take 2 tablets by mouth in the morning. MINOXIDIL 10 MG TABLET TAKE 0.5 TABLETS BY MOUTH 2 TIMES DAILY. MIRTAZAPINE 7.5 MG TABLET Take 1 tablet by mouth at bedtime. MYCOPHENOLATE 250 MG CAPSULE Take 2 capsules by mouth every 12 (twelve) hours. OR PER TRANSPLANT DOCTOR. Z 94.0 Kidney transplant Generic permitted Indications: z94.0 kidney transplant NITROGLYCERIN 0.[address] 1 TABLET UNDER THE TONGUE EVERY 5 MINUTES NEEDED FOR CHEST PAIN FOR 3 DOSES. IF NO RELIEF, CALL 911. OMEPRAZOLE 40 MG CAPSULE Take 1 capsule by mouth in the morning. PRAVASTATIN 40 MG TABLET Take 1 tablet by mouth at bedtime. PREDNISONE 5 MG TABLET Take 1 tablet by mouth in the morning. SUCRALFATE 1 GRAM TABLET TAKE 1 TABLET BY MOUTH FOUR TIMES A DAY TACROLIMUS (PROGRAF) 1 MG CAPSULE Take 5 capsules by mouth every 12 (twelve) hours. Take 5 tablets in the morning and 5 tablets in the evening Diagnosis: Z 94.0 generic permitted TAMSULOSIN 0.4 MG 24 HR CAPSULE TAKE 2 CAPSULES BY MOUTH AT BEDTIME TRIAMCINOLONE ACETONIDE 0.1 % CREAM Apply to area(s) 2 (two) times daily as needed for Dermatitis/Rash. VALGANCICLOVIR 450 MG TABLET Take 1 tablet by mouth in the morning. START taking Modified Medications as Prescribed No medications on file STOP taking these medications No medications on file Follow-up: Electronically signed by: Sanket Blair MD 07/02/232053 [facility]2024-03-06 09:35:02 Spoke with patient. He states for the past month patient has been having on and off chest pains, fatigue, and shortness of breath with exertion. He also reports intermittent heart racing and thinks that he has been having afib. He reports currently he feels like someone is "sitting on his chest", denies heart racing at this time. States that he is not short of breath at rest but becomes winded with mild activity. Strongly encouraged patient to call EMS or go to the ER. Patient feels like he cannot go to the ER until later due to needing to pick his granddaughter up from school. I encouraged patient not to delay care and to see if someone else can pickers material handlers his granddaughter. Patient verbalized understanding and states that if his symptoms get any worse he will go to the ER sooner rather than later. CIPAL SOFTWARE ARCHITECT Breann Aburto [facility] CenterWvpnrh5300-02-46 09:28:18 Copied from [facility] #[id number]. Topic: Appointment - Schedule Appointment >> Jul 02, 2023 9:25 AM Patient Property Technician wrote: Cely Myers is a 68 year old male Pt calling to schedule a sooner appt. with pt currently having chest pain, fatigue, pt states he feels like he is in afib. Escalted to cardiology chat. Call warm transferred to nurse Breann. Created for documentation. [facility]blqh1565-75-47 15:00:42 Appointment scheduled 07/10. [facility]Yuagow3526-40-26 08:18:57 Please schedule patient to follow-up appointment. Advise to bring all current medications for reconciliation. Thank you. [facility]2024-02-27 13:44:22 Routing to provider. [facility]2024-02-27 13:27:15 Copied from [facility] #[id number]. Topic: Clinical - Medical Advice >> Jun 24, 2023 1:19 PM [employer] Team wrote: Lexi Hart is stating that the xochitl vent will no longer be manufactured anymore and is wanting to know if provider can reach out to patient at the next office visit in June 2023. [facility] Andreina OconnorMaria [place] [id number] 09:17:17 Medical records placed in to be scanned folder. [place] [address]-02-15 11:17:21 Please advise patient to keep all appts, continue with plan of care, and complete all labs prior to future appt. Thank you. [place] [address]-02-15 08:26:28 Images from the original note were not included. [facility] Joyce CrooksMaria [place] [id number] 11:00:00 Images from the original note were not included. Patient has been identified by and name and was provided with cup, antiseptic towelette, and clean catch instructions. 1 urine specimen(s) sent. Unpreserved 1 Urine Culture Aptima tube Other urine [place] [address]-01-26 11:30:00 Images from the original note were not included. Venipuncture collection performed by clean technique on the right anticubitus. Total of 1 attempts were made. Slight pressure and a bandage/dressing were applied to the site(s). The patient experienced no complications. The following specimens were processed according to instructions and sent to [facility] laboratories per lab order on 05/23/2023 : LT BLUE SST 1 RED 1 LAV 2 PPT 1 DK GREEN (LiHep) DK GREEN (SodH) ROCHA DK BLUE (K2) DK BLUE (S) ACD Blood Culture NIPT/NTD Patient has been identified by and name and was provided with cup, antiseptic towelette, and clean catch instructions. 1 urine specimen(s) sent. Unpreserved 2 Urine Culture Aptima tube Other urine [facility]2023-12-31 17:20:50 Rx sent, let patient know, and to follow-up as scheduled. [place] [id number] 10:33:11 Spoke with pharmacy, insurance will only pay if two different prescription will be sent. We tried to do 200 mg 4 tab twice a day but insurance will not cover. Please send prescription listed below. 300 mg 1 tab twice a day 100 mg 1 tab twice a day [place] [id number] 10:13:41 Cely Myers is a 68 year old male Coretta from [facility] is calling stating they are on back order for (labetaloL 200 mg tablet) they are needing pcp to change the prescription to 100 mg instead of 200mg. States pt is out of med. Please advise Thank you [facility]/pharmacy #[id number] [address] [facility] Rosa Elena LoyaMaria [place] [id number] 10:03:37 [facility] providers sent clinical summary. Placed in providers folder for review. T Kellen Osuna RNMaria [place] [id number] 09:30:00 Images from the original note were not included. Venipuncture collection performed by clean technique on the right anticubitus. Total of 1 attempts were made. Slight pressure and a bandage/dressing were applied to the site(s). The patient experienced no complications. The following specimens were processed according to instructions and sent to [facility] laboratories per lab order on 11/22/2022 : LT BLUE SST 1 RED LAV 2 PPT 2 DK GREEN (LiHep) DK GREEN (SodH) ROCHA DK BLUE (K2) DK BLUE (S) ACD Blood Culture NIPT/NTD Patient has been identified by and name and was provided with cup, antiseptic towelette, and clean catch instructions. 2 urine specimen(s) sent. Unpreserved 2 Urine Culture Aptima tube Other urine [facility] HospitalIcpdvz2550-74-44 10:41:23 Placed in providers folder for review Kellen Osuna RNMcCullough-Hyde Memorial HospitalIpqkba3178-35-65 10:11:38 [facility] faxed over clinical summary in provider box Mayra LiraMcCullough-[facility]
[2024-12-22 18:14] LABS: ALT/SGPT 19.0 U/L (16-61); AST/SGOT 39.0 U/L (15-37); Albumin 2.8 g/dL (3.4-5.0); Albumin/Globulin Ratio 0.5 (1.1-1.8); Alkaline Phosphatase 95.0 U/L (45-117); Anion Gap 12.5 mEq/L (5.0-15.0); BUN Blood Urea Nitrogen 41.0 mg/dL (7-18); Globulin 6.0 g/dL (2.3-3.5); Glucose Level 143.0 mg/dL (74-106); Lipase 54.0 U/L (13-75); Potassium 3.5 mEq/L (3.5-5.1)
--- NOTE | 2024-12-22 18:44 | RAD REPORT ---
Stone Protocol CLINICAL INDICATION: Male, 69 years old.FLANK PAIN TECHNIQUE: CT abdomen and pelvis was performed, without IV contrast, as per department protocol using a CT stone protocol. Axial, sagittal and coronal reconstructions were obtained. One or more of the following dose reduction techniques were used: Automated exposure control, adjustment of the mA and/o r kV according to the patient size, and/or iterative reconstruction. Unless otherwise specified, incidental findings do not require dedicated imaging follow-up. [id number]. IV CONTRAST: Not administered. COMPARISON: No prior exams FINDINGS: The lack of intravenous contrast limits the sensitivity of this exam for evaluation of solid visceral organs, vascular structures, and retroperitoneum. LOWER CHEST: Dependent atelectasis and/or mild pneumonitis.Moderate cardiomegaly. At least moderate c oronary disease. Aortic valve and mitral annular calcificationsSmall hiatal hernia with circumferential thickening of the esophagus which could reflect esophagitis. UPPER GI: No significant abnormality. LIVER: Hepatic steatosis, but otherwise unremarkable. GALLBLADDER/BILE DUCTS: No biliary ductal dilatation.? PANCREAS: No mass, ductal dilation, or lora-pancreatic fluid. SPLEEN: Unremarkable. ADRENALS: No adrenal masses. KIDNEYS AND URETERS: Severe atrophic sh[place] kidneys. Right iliac fossa renal transplant. Mild right-s ided hydronephrosis. The fat containing mass exerts significant mass effect on the right kidney. ABDOMINAL AORTA AND OTHER VESSELS: Severe atherosclerotic changes. No aortic aneurysm. PERITONEUM: Fat containing mass adjacent to the transplant kidney measuring 11.6 x 8.1 cm 7.9 cm. LYMPH NODES: No pathologic lymphadenopathy. ABDOMINAL WALL: Unremarkable SMALL BOWEL/COLON: Small bowel has normal course and caliber. No colonic wall thickening or pericolon ic inflammatory changes. Mild diverticulosis without diverticulitis. URINARY BLADDER: Underdistended but grossly unremarkable. REPRODUCTIVE ORGANS: Mild prostatomegaly. MUSCULOSKELETAL: Multilevel degenerative changes in the spine. No acute fracture. ADDITIONAL FINDINGS: None. IMPRESSION: Moderate right sided hydronephrosis of the transplant kidney with mass effect on the kidney secondary to a fat containing mass. 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 No comparison imaging available.
[2024-12-22] MEDS ORDERED: NA CHLORIDE 0.9% 500 ML ONE (20:49)
[2024-12-22 21:15] LABS: Sqamous Epithelial <5 /HPF (None Seen); Urine Crystals Unidentified Few /HPF (None Seen); Urine Culture Reflex Order NOT NEEDED; Urine Microscopic Reflex YN ORDER UMIC; Urine WBC Clump Occasional /HPF (None Seen); Urine Yeast (Budding) Few /HPF (None Seen)
--- NOTE | 2024-12-22 21:22 | ER ---
Nurse's Notes [facility] Name: John Myers Age: 69 yrs Sex: Male : 1955 Arrival Date: 12/22/2024 Time: 17:12 Bed 19 Private MD: Diagnosis: Other hydronephrosis-transplanted kidney;Acute kidney failure, unspecified Presentation: 12/22 17:18 Coronavirus screen: Client denies travel out of the [place] in the last 14 days. Ebola cm10 Screen: Patient denies travel to an Ebola-affected area in the 21 days before illness onset. Initial Sepsis Screen: Does the patient meet any 2 criteria? No. Patient's initial sepsis screen is negative. Does the patient have a suspected source of infection? No. Patient's initial sepsis screen is negative. Risk Assessment: Do you want to hurt yourself or someone else? Patient reports no desire to harm self or others. Onset of symptoms was December 22, 2024. Care prior to arrival: Medication(s) given: Fentanyl 200mcg IV initiated. 20 GA, in the right wrist. 17:18 Acuity: DON 3 cm10 17:18 Method Of Arrival: EMS: [facility] cm10 17:20 Chief complaint: EMS states: TONED OUT TO PATIENT'S HOME FOR BILATERAL FLANK PAIN ONSET cm10 THIS MORNING. Triage Assessment: 17:21 General: Appears uncomfortable, Behavior is cooperative. Pain: Complains of pain in cm10 back Pain does not radiate. Pain currently is 10 out of 10 on a pain scale. Pain began suddenly. Neuro: No deficits noted. Level of Consciousness is awake, alert, obeys commands, Oriented to person, place, time, situation, Appropriate for age. Respiratory: No deficits noted. Airway is patent Respiratory effort is even, unlabored, Respiratory pattern is regular, symmetrical. : Reports pain in bilateral flank(s). 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 - Infectious Disease History:: Denies. - Social history:: Smoking status: unknown. Screenin:44 [facility] ED Fall Risk Assessment (Adult) History of falling in the last 3 months, cm10 including since admission No falls in past 3 months (0 pts) Confusion or Disorientation No (0 pts) Intoxicated or Sedated No (0 pts) Impaired Gait No (0 pts) Mobility Assist Device Used No (0 pt) Altered Elimination No (0 pt) Score/Fall Risk Level 0 - 2 = Low Risk Oriented to surroundings, Maintained a safe environment, Hourly rounding (assess needs \T\ fall precautionary measures) done. Abuse screen: Denies threats or abuse. Denies injuries from another. Nutritional screening: No deficits noted. Tuberculosis screening: No symptoms or risk factors identified. 19:39 [facility] ED Fall Risk Assessment (Adult) History of falling in the last 3 months, tb4 including since admission No falls in past 3 months (0 pts) Confusion or Disorientation No (0 pts) Intoxicated or Sedated No (0 pts) Impaired Gait No (0 pts) Mobility Assist Device Used No (0 pt) Altered Elimination No (0 pt) Score/Fall Risk Level 0 - 2 = Low Risk Oriented to surroundings, Maintained a safe environment. Abuse screen: Denies threats or abuse. Denies injuries from another. Nutritional screening: No deficits noted. Tuberculosis screening: No symptoms or risk factors identified. Assessment: 18:44 Reassessment: Patient appears in no apparent distress at this time. Patient and/or cm10 family updated on plan of care and expected duration. Pain level reassessed. Patient is alert, oriented x 3, equal unlabored respirations, skin warm/dry/pink. 19:34 General: Appears uncomfortable, ill, Behavior is calm, cooperative. Pain: Complains of tb4 pain in lumbar area, left low back and right low back Pain does not radiate. Pain currently is 10 out of 10 on a pain scale. Quality of pain is described as aching, pressure, Pain began suddenly, Is continuous, Alleviated by nothing. Aggravated by increased activity, repositioning. Neuro: No deficits noted. Level of Consciousness is awake, alert, obeys commands, Oriented to person, place, time, situation, Homebound Teacher are weak bilaterally Moves all extremities. Weakness in bilateral hand(s) foot/feet Gait is Patient unable to stand do to the pain. Speech is normal, Facial symmetry appears normal. Respiratory: Airway is patent Respiratory effort is even, unlabored, Respiratory pattern is regular, symmetrical. GI: No signs and/or symptoms were reported involving the gastrointestinal system. : Reports inability to void, since yesterday pain in bilateral flank(s), urgency, since yesterday. EENT: No signs and/or symptoms were reported regarding the EENT system. Derm: No signs and/or symptoms reported regarding the dermatologic system. Skin is intact, is healthy with good turgor, Skin is dry, Skin is normal. Musculoskeletal: Circulation, motion, and sensation intact. Range of motion: intact in all extremities, Reports pain in low back area, left low back and right low back. 12/23 01:33 Reassessment: Patient is alert, oriented x 3, equal unlabored respirations, skin tb4 warm/dry/pink. Patient denies pain at this time. Patient states feeling better. Patient states symptoms have improved. General: Appears in no apparent distress. comfortable, Behavior is calm, cooperative. Pain: Denies pain. Neuro: Level of Consciousness is awake, alert, obeys commands, Oriented to person, place, time, situation. Cardiovascular: Capillary refill < 3 seconds fingers Patient's skin is warm and dry. Respiratory: Airway is patent. 01:36 Reassessment: Report was given to Susan ADAN tb4 Vital Signs: 12/22 17:18 BP 107 / 69; Pulse 76; Resp 18; Temp 99.5(O); Pulse Ox 95% on R/A; Weight 90.72 kg; cm10 Height 5 ft. 10 in. ; Pain 10/10; 18:30 BP 123 / 73; Pulse 96; Resp 16; Pulse Ox 94% ; cm10 19:39 BP 121 / 77; Pulse 69; Resp 18; Pulse Ox 97% on R/A; Pain 10/10; tb4 20:37 BP 128 / 69; Pulse 86; Resp 18; Pulse Ox 97% on R/A; Pain 5/10; tb4 21:40 BP 129 / 70; Pulse 93; Resp 18; Pulse Ox 99% on R/A; tb4 22:40 BP 110 / 58; Pulse 76; Resp 20; Pulse Ox 99% on R/A; tb4 23:41 BP 114 / 66; Pulse 110; Resp 20; Pulse Ox 98% on R/A; tb4 12/23 01:00 BP 102 / 65; Pulse 94; Resp 19; Pulse Ox 99% on R/A; tb4 01:33 BP 107 / 63; Pulse 89; Resp 20; Pulse Ox 97% on R/A; tb4 12/22 17:18 Body Mass Index 28.70 (90.72 kg, 177.8 cm) cm10 12/22 17:18 Pain Scale: Adult cm10 19:39 Pain Scale: Adult tb4 20:37 Pain Scale: Adult tb4 12/22 20:37 Patient states pain decreased when Durant was inserted. tb4 ED Course: 17:18 Patient arrived in ED. cm10 17:18 Nasreen Garland FNP-C is PHCP. kb 17:18 Mookie Roberto MD is Attending Physician. kb 17:20 Triage completed. cm10 17:20 Arm band placed on right wrist. Patient placed in an exam room, on a stretcher. cm10 17:24 Chelsea Langston, ALFREDO is Primary Nurse. cm10 17:32 CBC with Diff Sent. cm10 17:32 CMP Sent. cm10 17:32 Lipase Sent. cm10 17:39 CT Stone Protocol In Process Unspecified. EDMS 18:45 Patient has correct armband on for positive identification. Bed in low position. Call cm10 light in reach. Side rails up X2. Pulse ox on. NIBP on. 19:12 Report given to ALFREDO Orozco. cm10 19:39 Patient has correct armband on for positive identification. Bed in low position. Call tb4 light in reach. Side rails up X 1. Side rails up X2. Client placed on continuous cardiac and pulse oximetry monitoring. NIBP monitoring applied. Door closed. Warm blanket given. 19:39 No provider procedures requiring assistance completed. Urine collected: Durant catheter tb4 specimen, clear, Amount Returned: 50mL. Maintain EMS IV. Dressing intact. Good blood return noted. Site clean \T\ dry. Gauge \T\ site: 20 G Right hand. Flushed with 10 mL NS IV is patent, Flushed right saline lock. 21:14 Durant cath inserted, using sterile technique, 16 Fr., by nd, balloon inflated, to tb4 gravity drainage, urine specimen collected. 12/23 02:[address] [facility] Administered Medications: 12/22 21:20 Drug: NS 0.9% IV 500 ml 500 ml IV at 1 bolus once; to be given as a bolus over 30 tb4 minutes Volume: 500 ml; Route: IV; Rate: 1 bolus; Site: right wrist; 22:47 Follow up: Response: No adverse reaction; IV Status: Completed infusion tb4 23:40 Drug: morphine IVP or IV 4 mg IVP once over 4 mins Route: IVP; Infused Over: 4 mins; tb4 Site: right wrist; 12/23 00:41 Follow up: Response: No adverse reaction; Pain is decreased; RASS: Alert and Calm (0) tb4 12/22 23:40 Drug: Ondansetron IVP 4 mg IVP once; over 2 minutes Route: IVP; Site: right wrist; tb4 12/23 00:41 Follow up: Response: No adverse reaction; Nausea is decreased tb4 00:04 CANCELLED (Physician Discretion): ns 0.9% 500 ml 500 ml IV at 1 bolus once; to be given kb as a bolus over 30 minutes 00:13 Drug: NS 0.9% IV 1000 ml IV at 1000 ml once; to be given as a bolus over 60 minutes tb4 Route: IV; Rate: 1000 ml; Site: right wrist; 01:02 Follow up: Response: No adverse reaction; IV Status: Completed infusion tb4 00:19 CANCELLED (Other Intervention Used): mg, d5w iv 500 ml IVPB at 1 mg/min kb continuous; for 6 hrs, then change to 0.5 mg/min 00:31 Drug: amiodarone IVPB 150 mg 100 ml IVPB once over 10 mins; (mix in D5W) Volume: 100 tb4 ml; Route: IVPB; Infused Over: 10 mins; Site: right wrist; 00:38 Follow up: Response: No adverse reaction; IV Status: Completed infusion tb4 01:28 CANCELLED (Other Intervention Used): aspirinchewable tablet 324 mg PO once; 81 mg kb tablets x 4 Medication: 12/22 18:44 VIS not applicable for this client. cm10 Outcome: 21:21 Discharge ordered by MD. rivas 21:21 ER care complete, transfer ordered by MD. rivas 12/23 01:35 Transferred by ground EMS to [facility], tb4 Condition: stable 01:36 Patient left the ED. tb4 Signatures: Dispatcher [employer] EDMS Nasreen Garland Chelsea Holley, RN RN cm10 Noelle Macias Terri RN RN tb4 Corrections: (The following items were deleted from the chart) 01:31 12/22 22:41 BP 114 / 66; Pulse 110bpm; Resp 20bpm; Pulse Ox 98% RA; tb4 tb4
--- NOTE | 2024-12-22 21:22 | EDPHYS ---
Physician Documentation [facility] Name: John Myers Age: 69 yrs Sex: Male : 1955 Arrival Date: 12/22/2024 Time: 17:12 Bed 19 Private MD: ED Physician Mookie Roberto HPI: 12/22 19:41 This 69 yrs old Black Male presents to ER via EMS with complaints of Flank Pain. kb 19:41 Patient is a 69-year-old male who presents for bilateral flank pain, nausea, vomiting, kb diarrhea that started this morning. Denies fever. States has been difficult for him to get around due to pain. Reports difficulty urinating.. 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 - Infectious Disease History:: Denies. - Social history:: Smoking status: unknown. ROS: 19:40 Constitutional: As per HPI kb Exam: 19:40 Constitutional: This is a well developed, well nourished patient who is awake, alert, kb and in no acute distress. Head/Face: Normocephalic, atraumatic. ENT: Moist Mucous membranes Cardiovascular: Regular rate Respiratory: Respirations even and unlabored. No increased work of breathing. Talking in full sentences Skin: Warm, dry with normal turgor. Normal color. MS/ Extremity: Pulses equal, no cyanosis. Neurovascular intact. Full, normal range of motion. Neuro: Awake and alert, GCS 15, oriented to person, place, time, and situation. 19:40 Abdomen/GI: Inspection: abdomen appears normal, Bowel sounds: normal, Palpation: soft, in all quadrants, moderate abdominal tenderness, in the right lower quadrant and left lower quadrant, 19:40 Back: pain, that is moderate, of the low back area and mid back area, 12/23 01:29 ECG was reviewed by the Attending Physician. kb Vital Signs: 12/22 17:18 BP 107 / 69; Pulse 76; Resp 18; Temp 99.5(O); Pulse Ox 95% on R/A; Weight 90.72 kg; cm10 Height 5 ft. 10 in. ; Pain 10/10; 18:30 BP 123 / 73; Pulse 96; Resp 16; Pulse Ox 94% ; cm10 19:39 BP 121 / 77; Pulse 69; Resp 18; Pulse Ox 97% on R/A; Pain 10/10; tb4 20:37 BP 128 / 69; Pulse 86; Resp 18; Pulse Ox 97% on R/A; Pain 5/10; tb4 21:40 BP 129 / 70; Pulse 93; Resp 18; Pulse Ox 99% on R/A; tb4 22:40 BP 110 / 58; Pulse 76; Resp 20; Pulse Ox 99% on R/A; tb4 23:41 BP 114 / 66; Pulse 110; Resp 20; Pulse Ox 98% on R/A; tb4 12/23 01:00 BP 102 / 65; Pulse 94; Resp 19; Pulse Ox 99% on R/A; tb4 01:33 BP 107 / 63; Pulse 89; Resp 20; Pulse Ox 97% on R/A; tb4 12/22 17:18 Body Mass Index 28.70 (90.72 kg, 177.8 cm) cm10 12/22 17:18 Pain Scale: Adult cm10 19:39 Pain Scale: Adult tb4 20:37 Pain Scale: Adult tb4 12/22 20:37 Patient states pain decreased when Durant was inserted. tb4 MDM: 17:18 Medical Screening Exam initiated kb 19:40 Differential diagnosis: nephrolithiasis, pyelonephritis, UTI. Data reviewed: vital kb signs, nurses notes. Consideration of Admission/Observation Escalation of care including admission/observation considered. pt will be transferred to [facility] for continuity of care. Pt had kidney transplant at [facility]. Historians other than the Patient: EMS: [facility]. 19:41 Counseling: I had a detailed discussion with the patient and/or guardian regarding the kb historical points, exam findings, and any diagnostic results supporting the discharge/admit diagnosis, lab results, radiology results, the need to transfer to another facility, for higher level of care, [facility] does not immediately have the required specialist. 20:25 ED course: Sister (Saima Boggs) [phone]. kb 22:00 Management of patient was discussed with the following: Dr Poon accepts pt for kb transfer. 12/23 00:05 ED course: Pt rhythm now in and out of a.flutter. EKG competed and I discussed case kb with Dr Nascimento. Recommends 1L of NS and amiodarone bolus of 150mg. Pt states he has had an irregular heart rhythm in the past and used to take medication for it, but doesn't anymore. . 00:20 ED course: Dr Pono updated on patient's condition. Requests infusion of fluid and kb another update prior to transfer.. 01:14 ED course: BP 107/63 with heart rate 80-90s in a.fib. Dr Poon updated and agrees kb with transfer at this time. 12/22 17:19 Order name: CBC with Diff; Complete Time: 17:44 kb 12/22 17:19 Order name: CMP; Complete Time: 18:28 kb 12/22 17:19 Order name: Lipase; Complete Time: 18:28 kb 12/22 17:19 Order name: UA Rfx Lenard Cult if indicated; Complete Time: 21:17 kb 12/22 17:19 Order name: CT Stone Protocol; Complete Time: 18:45 kb 12/22 23:47 Order name: EKG; Complete Time: 23:47 kb 12/22 17:19 Order name: IV Saline Lock; Complete Time: 17:24 kb 12/22 17:19 Order name: Labs collected and sent; Complete Time: 17:32 kb 12/22 17:44 Order name: Labs - recollect needed: recollect green top; Complete Time: 17:54 bd 12/22 23:47 Order name: EKG - Nurse/Tech; Complete Time: 00:01 kb EC:29 Rate is 106 beats/min. Rhythm is irregularly irregular. QRS interval is normal at 168 kb msec. QT interval is prolonged at 573 msec. Administered Medications: 12/22 21:20 Drug: NS 0.9% IV 500 ml 500 ml IV at 1 bolus once; to be given as a bolus over 30 tb4 minutes Volume: 500 ml; Route: IV; Rate: 1 bolus; Site: right wrist; 22:47 Follow up: Response: No adverse reaction; IV Status: Completed infusion tb4 23:40 Drug: morphine IVP or IV 4 mg IVP once over 4 mins Route: IVP; Infused Over: 4 mins; tb4 Site: right wrist; 12/23 00:41 Follow up: Response: No adverse reaction; Pain is decreased; RASS: Alert and Calm (0) tb4 12/22 23:40 Drug: Ondansetron IVP 4 mg IVP once; over 2 minutes Route: IVP; Site: right wrist; tb4 12/23 00:41 Follow up: Response: No adverse reaction; Nausea is decreased tb4 00:04 CANCELLED (Physician Discretion): ns 0.9% 500 ml 500 ml IV at 1 bolus once; to be given kb as a bolus over 30 minutes 00:13 Drug: NS 0.9% IV 1000 ml IV at 1000 ml once; to be given as a bolus over 60 minutes tb4 Route: IV; Rate: 1000 ml; Site: right wrist; 01:02 Follow up: Response: No adverse reaction; IV Status: Completed infusion tb4 00:19 CANCELLED (Other Intervention Used): mg, d5w iv 500 ml IVPB at 1 mg/min kb continuous; for 6 hrs, then change to 0.5 mg/min 00:31 Drug: amiodarone IVPB 150 mg 100 ml IVPB once over 10 mins; (mix in D5W) Volume: 100 tb4 ml; Route: IVPB; Infused Over: 10 mins; Site: right wrist; 00:38 Follow up: Response: No adverse reaction; IV Status: Completed infusion tb4 01:28 CANCELLED (Other Intervention Used): aspirinchewable tablet 324 mg PO once; 81 mg kb tablets x 4 Disposition Summary: 12/22/24 21:21 Transfer Ordered Notes: Transfer Location: [facility]-System kb Reason: Higher level of care kb Condition: Stable(12/22/24 21:21) kb Problem: new kb Symptoms: are unchanged kb Accepting Physician: Dr Poon(12/23/24 01:36) tb4 Diagnosis - Other hydronephrosis - transplanted kidney(12/22/24 21:21) kb - Acute kidney failure, unspecified(12/22/24 21:21) kb Forms: - Medication Reconciliation Form kb - SBAR form kb Critical care time excluding procedures: 00:53 Critical care time: Bedside Care: 15 minutes, Consultation: 15 minutes, Family kb Intervention: 5 minutes. Total time: 35 minutes Addendum: 12/24/2024 13:34 Co-signature as Attending Physician, Mookie Roberto MD I agree with the assessment and c webster plan of care. Signatures: Dispatcher [employer] Nasreen Barnes, BRAIDED RUG MAKER-C BRAIDED RUG MAKER-Ckb Chika Kahn Corey, MD MD cha Martinez, Clarissa, RN RN cm10 Amor, Pam, RN RN tb4 Corrections: (The following items were deleted from the chart) 12/22 17:19 17:19 Stone Protocol+CT.RAD.BRZ ordered. EDMN EDMN 21:21 21:21 Home kb kb 21: 21:21 Stable kb kb 21: 21:21 Other hydronephrosis - transplanted kidney kb kb 21:21 Acute kidney failure, unspecified kb kb 12/23 00:04 00:01 NS 0.9% IV 500 ml 500 ml IV at 1 bolus once; to be given as a bolus over 30 kb minutes ordered. kb 00:12 00:05 ED course: Pt rhythm now in and out of a.flutter. EKG competed and I discussed kb case with Dr Nascimento. Recommends 1L of NS and amiodarone bolus of 150mg. . kb 00:19 00:05 amiodarone IVPB 900 mg, D5W IV 500 ml IVPB at 1 mg/min continuous; for 6 hrs, kb then change to 0.5 mg/min ordered. kb 00:24 12/22 21:21 Dr rob rivas 12/23 01:28 00:05 Aspirin PO Chewable Tablet 324 mg PO once; 81 mg tablets x 4 ordered. kb kb 01:36 00:24 Dr Cleve rivas tb4
[2024-12-22] MEDS ORDERED: MORPHINE 4 MG/ML SYR ONE (23:31)
[2024-12-22] MEDS ORDERED: ONDANSETRON 4 MG/2 ML VIAL ONE (23:31)
[2024-12-23] MEDS ORDERED: NA CHLORIDE 0.9% 0 ML ONE (00:02)
[2024-12-23] MEDS ORDERED: AMIODARONE HCL 150 MG/3 ML INJ IV ONE (00:04)
[2024-12-23] MEDS ORDERED: NA CHLORIDE 0.9% 1,000 ML ONE (00:05)
[2024-12-23] MEDS ORDERED: AMIODARONE IN DEXTROSE,ISO-OSM 0 MG/0 ML BAG IV ONE (00:05)
[2024-12-23] MEDS ORDERED: NA CHLORIDE 0.9% 100 ML ONE (00:06)
[2024-12-23 12:06] VITALS: TEMP 99.5
[2024-12-23 12:21] VITALS: BP 107/63; O2SAT 97
== END 2024-12-23 01:36 | disposition short-term general hospital (02) ==
LOC: ER 17:12
DX: N13.39 Other hydronephrosis (principal); N17.9 Acute kidney failure, unspecified; Z94.0 Kidney transplant status; I10 Essential (primary) hypertension; Z95.1 Presence of aortocoronary bypass graft
CPT/HCPCS: 96361; 93005; 85025; 81001; 36415; 83690; 80053; 76377; 74176; 51702; 96375; 96374; 99285; J0282; J2405; J7040; J7030

== ENCOUNTER 2025-01-23 17:07 | Inpatient (IN) | payer OTHER ==
[2025-01-23 17:45] LABS: Absolute Lymphocytes (CBC) 0.4 K/uL (0.7-4.9); MCH 28.2 pg (27.0-35.0); MPV 8.7 fL (7.6-11.3)
[2025-01-23 17:54] LABS: Hematocrit 31.4 % (39.6-49.0); Hemoglobin 10.1 g/dL (13.6-17.9); MCHC 32.2 g/dL (32.0-36.0); MCV 87.5 fL (80-100); Nucleated RBC Absolute Count 0.0 (0-0); Nucleated Red Blood Cells % 0.1 % (0-0); RBC Red Blood Cell Count 3.59 M/uL (4.33-5.43); White Blood Count 11.50 thou/uL (4.3-10.9)
[2025-01-23] MEDS ORDERED: ACETAMINOPHEN 500 MG TAB ONE (17:54)
[2025-01-23] MEDS ORDERED: NA CHLORIDE 0.9% 250 ML ONE ×2 (17:55→18:40)
[2025-01-23] MEDS ORDERED: CEFEPIME 1 GM/VIAL ONE (17:55)
[2025-01-23] MEDS ORDERED: NA CHLORIDE 0.9% 2,000 ML ONE (17:55)
[2025-01-23 18:02] LABS: PT Prothrombin Time 15.7 SECONDS (10-13.0); PTT, Activated Partial Thromb 34.8 SECONDS (27.2-37.4); Protime INR 1.4
[2025-01-23 18:03] LABS: AST/SGOT 11 U/L (15-37); Albumin 2.8 g/dL (3.4-5.0); Albumin/Globulin Ratio 0.5 (1.1-1.8); Alkaline Phosphatase 101 U/L (45-117); Anion Gap 13.1 mEq/L (5.0-15.0); BUN Blood Urea Nitrogen 21 mg/dL (7-18); Globulin 5.8 g/dL (2.3-3.5); Glucose Level 135 mg/dL (74-106); NT PRO-BNP 11847 pg/mL (<125); Potassium 4.1 mEq/L (3.5-5.1)
[2025-01-23 18:04] LABS: Sqamous Epithelial None Seen /HPF (None Seen); Urine Crystals Unidentified Few /HPF (None Seen); Urine Culture Reflex Order REFLEXED; Urine Microscopic Reflex YN ORDER UMIC; Urine WBC Clump Many /HPF (None Seen)
[2025-01-23 18:04] LABS: ALT/SGPT < 14 U/L (16-61)
--- OUTSIDE RECORDS SUMMARY | 2025-01-23 18:04 | XMS REPORT | Continuity of Care Document ---
Author Name Unknown Address [address] [facility] [address] [place] [address] [facility] [place] Address [address] [facility] [address] [place] [address] Care Team Providers Care Mule Operator Name Role Phone Pcp, Pcp Primary Care Physician Unavailab SARA Almazan Attending Clinician JASMYNE Salas Attending Clinician Unavailable ASHWIN WEIR Attending Clinician UnavailTOMEKA Arrieta Attending Clinician Unavailable ABNER RIVERA Attending Clinician Unavailable Parminder Rueda MD Attending Clinician [phone] Transplant, Kidney Surgery Attending Clinician U yadi Pollock MD, Parminder Ghosh Attending Clinician [phone] Soha ARCOS, Tomeka Attending Clinician [phone] Alexandrea Drew RN Attending Clinician Unava ilregina Worker, Transplant Social Attending Clinician Un available PARMINDER RUEDA Attending Clinician UnavailAbner Ashley MD Attending Clinician +[phone] Liane ARCOS, Naomie Andrade Attending Clinician +[phone] PADMAJA POWERS Attending Clinician Unavailable PADMAJA POWERS Attending Clinician Unavailable Saúl Monreal MD Attending Clinician [phone] Doctor Unassigned, [place] Attending Clinician U yadi Katz MD, Randolph Horton Attending Clinician [phone] Howard ARCOS, Rafaela Chen Attending Clinician +[phone] Mandy ARCOS, Carlos Attending Clinician +[phone] Calos ARCOS, Sara Stafford Attending Clinician + [phone] Transplant, Kidney Medicine Attending Clinician Unavailable Shanae ARCOS, Behzad Attending Clinician [phone] [facility] Ginger ARCOS, Mukseh Coles Attending Clinician +[phone] Zelalem BALLhT, Rakel Attending Clinician Unavaila boni Weir MD, Ashwin Gutierrez Attending Clinician [phone] 2, [facility] Lab Attending Clinician Unavailable Sidney South, Sue Pereyra Attending Clinician Unavaila boni Harris MD, Abbey Attending Clinician +[phone] Georgia Miller Attending Clinician Unavailab Padmaja Conroy Attending Clinician Unavailabl DHIRAJ Bustamante Attending Clinician Unavailab DHIRAJ Salmeron Attending Clinician Unavailab jono Garcia ADVANCED PRACTICE PROFESSIONAL, Junior Attending Clinician [phone] JUNIOR GARCIA Attending Clinician Unavailab JUNIOR Shipman Attending Clinician Unavailab jono Fitch CPhT, Shyann Das Attending Clinician Unacarly JOLLY, BEHZAD Attending Clinician Unavailable Vtc-Lab Attending Clinician Unavailable Vicky [facility], Sandy L Attending Clinician Unavail able KAIN JULIEN Attending Clinician Unavaila KAIN Lanier Attending Clinician Unavaila boni Watts MA, Lisette A Attending Clinician Unavailab jono Van [facility], Marisela Attending Clinician Unavailable KATARZYNA COBURN Attending Clinician Unavaila boni Doctor Unassigned, [place] Attending Clinician U NAOMIE Ferris Attending Clinician Marcos Hoyos MD, Tomeka Attending Clinician [phone] Naomie Doty MD Attending Clinician +[phone] Nicolle Ramírez Attending Clinician +[phone] Nicole ARCOS, Abner Attending Clinician +[phone], [facility] Lab Attending Clinician Unavailable Shanae ARCOS, Behzad Attending Clinician [phone] [facility], Rose Pereyra Attending Clinician Unavail able NICOLLE PHILLIPS Attending Clinician Unavailable Jack Grady RN Attending Clinician UnavailVENITA Penny Attending Clinician Unavailable Van [facility], Marisela Attending Clinician Unavailable Mukesh ARCOS, Venita Attending Clinician +[phone] Jt Alejandro MD Attending Clinician [phone] Ashwin Weir MD Attending Clinician [phone] DIANDRA TILLMAN Attending Clinician Unavailable DIANDRA TILLMAN Attending Clinician Unavailable JT ALEJANDRO Attending Clinician Unavailable Augusta FUENTES, Cassius Damon Attending Clinician Unavail able Josefina ARCOS, Sanket Barrera Attending Clinician [phone] Elisabeth ARCOS, Jackson Attending Clinician [phone] KURTIS CHASE Attending Clinician Unavailable KURTIS CHASE Attending Clinician Unavailable Vtc-Lab Attending Clinician Unavailable Parminder Rueda MD Attending Clinician + [phone] Padmaja Emerson MD Attending Clinician [phone] PADMAJA EMERSON Attending Clinician Unavailmelanie Spencer RN, Penny Attending Clinician Unavailable VAN BROWN Attending Clinician Aida Van López MD Attending Clinician ML KEYES Attending Clinician Unavailable RADHA STAHL Attending Clinician Unavailable RADHA STAHL Attending Clinician Unavailable Lab, Ang - Db Attending Clinician Unavailable Katarzyna Coburn MD Attending Clinician [phone] UNKNOWN, ATTENDING Attending Clinician Unavailab le Unknown, Attending Attending Clinician Unavailab jono Iglesias [facility], Matt Attending Clinician Unavailable Nurse, [facility] Fam Attending Clinician Unavailable Isreal Logan MD Attending Clinician [phone] Vaccine, [facility] Family Medicine Attending Clinician Unavailable RORY JOLLY Attending Clinician Unavailable RORY JOLLY Attending Clinician Unavailable Alexandrea Segundo MD Attending Clinician [phone] ASHWIN WILSON Attending Clinician Unavailab jono Malave NP, Nkechi Lopez Attending Clinician +[phone] Oscar ARCOS, Narendra Damon Attending Clinician + [phone] Ashwin Wilson MD Attending Clinician + [phone] ISREAL LOGAN Attending Clinician Unavaila boni Pelaez [facility], [place] Attending Clinician Unavaila boni Parker MD, Nelly Damon Attending Clinician [phone] NELLY PARKER Attending Clinician Unava ilable GUU_SHENG_YAW Attending Clinician Unavailable GRAMM, BRENDA A Attending Clinician Unavailable Gramm FLOORS BUFFER, Brenda A Attending Clinician [phone] Tech, [facility] Sleep Lab Attending Clinician Unavaila boni Julien MD, Kain Barrera Attending Clinician + [phone] Curtice, [facility] Test Attending Clinician Unavailable ZARI MEHTA Attending Clinician UnavailRadha Lassiter DO Attending Clinician [phone] [facility] Attending Clinician Unavailable Tyson ACNZari Clemente Attending Clinician [phone] BRAN CHUA Attending Clinician Unavail able Nurse, [facility] Pob Immunization Attending Clinician Unavailable Bran Chua DO Attending Clinician [phone] Macho Ha MD Attending Clinician [phone] MACHO HA Attending Clinician Unavailable Jerrod Garcia PA-C Attending Clinician [phone] Jasmyne Roper MD Attending Clinician [phone] RAFAELA GLASER Attending Clinician Unavaila ble Lab, [facility] Fam Pob I Attending Clinician Unavailab jono Appiah FLOORS BUFFERGian Clemente Attending Clinician [phone] GIAN APPIAH Attending Clinician Unavailable Provider, [facility]gent Care Attending Clinician Un available Pob, [facility] Lab Main Attending Clinician Unavailmelanie Griggs MD, Vernon Attending Clinician [phone] VERNON GRIGGS Attending Clinician Unavailable Pc, [facility] Vascular Room 1 - Attending Clinician Un available RHEA SHEEHAN Attending Clinician Unavailable Kali FUENTES, Haven Cooper Attending Clinician Unavail able Regla Crooks DO Attending Clinician [phone] Toni ARCOS, Moris Attending Clinician +[phone] MORIS HERNANDEZ Attending Clinician Unavailable EVER CACERES Attending Clinician Unavailable Ever Caceres MD Attending Clinician [phone] Norma Noe Attending Clinician [phone] JUAN FRANCISCO FLORES Attending Clinician Unavailable Darryn ARCOS, Ileana Attending Clinician [phone] Pcp-Lab Attending Clinician Unavailable ILEANA CATES Attending Clinician Unavailable Luh Mak RN Attending Clinician [phone] Anthony Mncamara DO Attending Clinician [phone] Daniel ARCOS, Era Clemente Attending Clinician [phone] Khurram Sanchez MD Attending Clinician [phone] KHURRAM SANCHEZ Attending Clinician Unavailable Yuki Ortiz RN Attending Clinician [phone] Cristian Garcia MD Attending Clinician [phone] Paulo Diallo MD Attending Clinician Pob1, Acute Care Clinic Attending Clinician Unav ailable PAULO DIALLO Attending Clinician Aida cruzito Bhagat RN, Mookie Attending Clinician Unavailab Mariah Fontenot RN Attending Clinician Unavailnelson Bautista PA-C, Breonna Attending Clinician [phone] Care, Provider 27 - Adult & Pedi Urgent Attendin g Clinician Unavailable Pcp, Patient Does Not Have A Attending Clinician Erin Madera RN Attending Clinician Unavailable Olya Powers PT Attending Clinician Unavailab jono Hernandez MD, Timmy Cooper Attending Clinician [phone] Angelita Leavitt Attending Clinician Nadeen dexter 1, [facility] Attending Clinician Unavailable CARLOS VIVEROS Admitting Clinician Unavailable JASMYNE ROPER Admitting Clinician Unavailable ANA POON Admitting Clinician Unavailable Carlos Viveros MD Admitting Clinician [phone] VENITA MAYORGA Admitting Clinician Unavailable Venita Mayorga MD Admitting Clinician [phone] ABNER RIVERA Admitting Clinician Unavailable NAOMIE DOTY Admitting Clinician UnaNARENDRA Novoa Admitting Clinician Unavailab Narendra Duque MD Admitting Clinician +[phone] SUSANNE_JUANAG_YAW Admitting Clinician Unavailable BRENDA RAPHAEL Admitting Clinician Unavailable ISREAL LOGAN Admitting Clinician UnavailTOMEKA Wood Admitting Clinician Unavailable RADHA STAHL Admitting Clinician Unavailable Jasmyne Roper MD Admitting Clinician [phone] Moris Hernandez MD Admitting Clinician [phone] MORIS HERNANDEZ Admitting Clinician Unavailable Khurram Sanchez MD Admitting Clinician +[phone] KHURRAM SANCHEZ Admitting Clinician Unavailable PAULO DIALLO Admitting Clinician Aida vailable Payers Payer Name Policy Type Policy Number Effective Date Expirati on Date Source [employer] [id number] 2024 00:00:00 [facility] DUAL COMP HMO D SNP [id number] 2020 00:00:00 [facility] MEDICAID DUAL COMPLETE HMO DSNP [id number] 2024 00:00:00 MEDICARE PART A \\T\\ B [id number] 1997 00:00:00 2024 00:00:00 [facility] [id number] 2021 00:00:00 [employer] HMO [id number] 2020 00:00:00 Problems Condition Name Condition Details Condition Category Status Onset Date Resolution Date Last Treatment Date Treating Clinician Comments Source 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 Disease Active 9-04 00:00: 00 [facility] KATLYN (acute kidney injury) KATLYN (acute kidney injury) Disease Active 8- 00:00: 00 [facility] Paroxysmal A-fib (CMS/HCC) Paroxysmal A-fib (CMS/HCC) Disease Active -18 00:00: 00 Rakel Zepeda Coronary artery disease involving autologous artery coronary bypass graft without angina pectoris Coronary artery disease involving autologous artery coronary bypass graft without angina pectoris Disease Active 11-10 00:00: 00 Rakel Zepeda Essential hypertensi on Essential hypertensi on Disease Active 11-10 00:00: 00 Rakel Zepeda -d onor kidney transplant -d onor kidney transplant Disease Active 11-10 00:00: 00 Rakel Zepead KATLYN (acute kidney injury) KATLYN (acute kidney injury) Disease Active 11-10 00:00: 00 Rakel Zepeda Syncope and collapse Syncope and collapse Disease Active 11-09 00:00: 00 Rakel Zepeda Grief reaction Grief reaction Disease Active 04-29 00:00: 00 [facility] Stressful life event affecting family Stressful life event affecting family Disease Active 04-29 00:00: 00 [facility] Intermitte nt headache Intermitte nt headache Disease Active 04-29 00:00: 00 [facility] Asymptomat ic hypertensi ve urgency Asymptomat ic hypertensi ve urgency Disease Active 04-29 00:00: 00 [facility] Anemia of chronic disease Anemia of chronic disease Disease Active 04-29 00:00: 00 [facility] Vitamin D deficiency Vitamin D deficiency Disease Active 04-29 00:00: 00 [facility] Hypomagnes emia Hypomagnes emia Disease Active 04-29 00:00: 00 [facility] Hypertensi ve kidney disease Hypertensi ve kidney disease Disease Active 04-29 00:00: 00 [facility] Other proteinuri a Other proteinuri a Disease Active 04-29 00:00: 00 [facility] GERD without esophagiti s GERD without esophagiti s Disease Active 01-20 00:00: 00 [facility] Cigarette nicotine dependence in remission Cigarette nicotine dependence in remission Disease Active 2024-0 9-25 00:00: 00 [facility] S/P CABG (coronary artery bypass graft) S/P CABG (coronary artery bypass graft) Disease Active 0 9-25 00:00: 00 [facility] Cigarette nicotine dependence in remission Cigarette nicotine dependence in remission Disease Active 0 9-25 00:00: 00 [facility] Chronic heart failure with preserved ejection fraction Chronic heart failure with preserved ejection fraction Disease Active 0 9-17 00:00: 00 [facility] ANG (obstructi ve sleep apnea) ANG (obstructi ve sleep apnea) Disease Active 0 7-17 00:00: 00 [facility] Leg edema Leg edema Disease Active 0 7-17 00:00: 00 [facility] Chest pain in adult Chest pain in adult Disease Active 0 3-06 00:00: 00 [facility] Non-STEMI (non-ST elevated myocardial infarction ) Non-STEMI (non-ST elevated myocardial infarction ) Disease Active 0 3-06 00:00: 00 [facility] FPC exposure to asbestos FPC exposure to asbestos Disease Active 0 6-26 00:00: 00 [facility] Vision changes Vision changes Disease Active 0 6-26 00:00: 00 [facility] Hospital discharge follow-up Hospital discharge follow-up Disease Active 0 8-31 00:00: 00 [facility] Hematuria, unspecifie d type Hematuria, unspecifie d type Disease Active 0 8-18 00:00: 00 [facility] Gouty arthritis of left great toe Gouty arthritis of left great toe Disease Active 0 6-07 00:00: 00 [facility] Post-COVID syndrome Post-COVID syndrome Disease Active 0 5-24 00:00: 00 [facility] Abnormal ankle brachial index (BHAVANI) Abnormal ankle brachial index (BHAVANI) Disease Active 0 5-24 00:00: 00 [facility] Clumsiness Clumsiness Disease Active 0 5-24 00:00: 00 [facility] Post-COVID syndrome Post-COVID syndrome Disease Active 09-18 00:00: 00 [facility] 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 Disease Active 09-18 00:00: 00 [facility] Skin rash Skin rash Disease Active 09-18 00:00: 00 [facility] Hyperchole sterolemia Hyperchole sterolemia Disease Active 09-18 00:00: 00 [facility] Mild intermitte nt chronic asthma without complicati on Mild intermitte nt chronic asthma without complicati on Disease Active 09-18 00:00: 00 [facility] Chronic allergic rhinitis Chronic allergic rhinitis Disease Active 09-18 00:00: 00 [facility] 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 Disease Active 2020-04 00:00: 00 [facility] 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 Added automatic ally from request for surgery [id number] [facility] Coronary artery disease involving kasaan coronary artery of kasaan heart without angina pectoris Coronary artery disease involving kasaan coronary artery of kasaan heart without angina pectoris Disease Active 2019-04 00:00: 00 [facility] Coronary artery disease involving kasaan coronary artery of kasaan heart with angina pectoris Coronary artery disease involving kasaan coronary artery of kasaan heart with angina pectoris Disease Active 2020-1 2-18 00:00: 00 [facility] Dyslipidem ia Dyslipidem ia Disease Active 2020-1 2-18 00:00: 00 [facility] Elevated troponin Elevated troponin Disease Active 2020-1 2-17 00:00: 00 [facility] Elevated troponin Elevated troponin Disease Active 2020 2-17 00:00: 00 [facility] Obesity (BMI 30-39.9) Obesity (BMI 30-39.9) Disease Active 2020-1 2-17 00:00: 00 [facility] Pericardia l effusion Pericardia l effusion Disease Active 2020-0 5- 00:00: 00 [facility] Pneumonia of right lower lobe due to infectious organism Pneumonia of right lower lobe due to infectious organism Disease Active 2020-0 4- 00:00: 00 [facility] Pneumonia of right lower lobe due to infectious organism Pneumonia of right lower lobe due to infectious organism Disease Active 2020-0 4- 00:00: 00 [facility] Cough Cough Disease Active 2020-0 4-29 00:00: 00 [facility] Anxiety Anxiety Disease Active 2020-0 4-29 00:00: 00 [facility] Mild cardiomega ly Mild cardiomega ly Disease Active 2020-0 4-29 00:00: 00 [facility] Prediabete s Prediabete s Disease Active 2020-0 2-06 00:00: 00 [facility] Lacunar infarction Lacunar infarction Disease Active 2020-0 2-06 00:00: 00 [facility] 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 disease Disease Active 2020-0 2-06 00:00: 00 [facility] 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 Disease Active 2020-0 1-08 00:00: 00 [facility] BPH without urinary obstructio n BPH without urinary obstructio n Disease Active 2019 0-18 00:00: 00 [facility] Nodule of lower lobe of right lung Nodule of lower lobe of right lung Disease Active 2019 0-06 00:00: 00 [facility] Pulmonary nodules Pulmonary nodules Disease Active 2018-04 0-06 00:00: 00 [facility] BPH with obstructio n/lower urinary tract symptoms BPH with obstructio n/lower urinary tract symptoms Disease Active 2018-04 0 00:00: 00 Overview: Formattin g of this note might be different from the original. Added automatic ally from request for surgery [id number] [facility] Vitamin B12 deficiency Vitamin B12 deficiency Disease Active 05-23 00:00: 00 [facility] SS-B antibody positive SS-B antibody positive Disease Active 05-23 00:00: 00 [facility] Arthralgia of multiple joints Arthralgia of multiple joints Disease Active 05-23 00:00: 00 [facility] Abnormal SPEP Abnormal SPEP Disease Active 05-23 00:00: 00 Overview: Formattin g of this note might be different from the original. Polyclona l gammopath y [facility] Hypercalce hugo Hypercalce hugo Disease Active 05-23 00:00: 00 [facility] CKD (chronic kidney disease), stage III CKD (chronic kidney disease), stage III Disease Active 05-13 00:00: 00 [facility] Elevated pancreatic enzyme Elevated pancreatic enzyme Disease Active 12-14 00:00: 00 [facility] Microscopi c hematuria Microscopi c hematuria Disease Active 12-14 00:00: 00 [facility] Nephrolith iasis Nephrolith iasis Disease Active 12-14 00:00: 00 Overview: Formattin g of this note might be different from the original. Of transplan sonja kidney [facility] Immunosupp ression Immunosupp ression Disease Active 12-31 00:00: 00 [facility] Diarrhea Diarrhea Disease Active 12-29 00:00: 00 [facility] Fever Fever Disease Active 12-29 00:00: 00 [facility] UTI (urinary tract infection) UTI (urinary tract infection) Disease Active 12-28 00:00: 00 [facility] HSV-2 seropositi ve HSV-2 seropositi ve Disease Active 09-11 00:00: 00 [facility] History of syphilis History of syphilis Disease Active 09-11 00:00: 00 [facility] Bilateral groin pain Bilateral groin pain Disease Active 09-05 00:00: 00 [facility] Immunosupp ressive management encounter following kidney transplant Immunosupp ressive management encounter following kidney transplant Disease Active 07-28 00:00: 00 [facility] Coronary artery disease without angina pectoris Coronary artery disease without angina pectoris Disease Active 07-23 00:00: 00 [facility] Coronary artery disease without angina pectoris Coronary artery disease without angina pectoris Disease Active 07-23 00:00: 00 [facility] Atypical chest pain Atypical chest pain Disease Active 07-23 00:00: 00 [facility] Abdominal pain Abdominal pain Disease Active 01-25 00:00: 00 [facility] Post-opera tive state Post-opera tive state Disease Active 09-28 00:00: 00 [facility] Elevated serum creatinine Elevated serum creatinine Disease Active 01-21 00:00: 00 [facility] Need for prophylact ic immunother apy Need for prophylact ic immunother apy Disease Recurre nce 09-07 00:00: 00 [facility] Medicare annual wellness visit, subsequent Medicare annual wellness visit, subsequent Disease Active 09-07 00:00: 00 [facility] Kidney replaced by transplant Kidney replaced by transplant Disease Recurre nce 2011-04 00:00: 00 [facility] LEFT VENTRICULA R HYPERTROPH Y LEFT VENTRICULA R HYPERTROPH Y Disease Recurre nce 2004-04 00:00: 00 Overview: Formattin g of this note might be different from the original. 5 [facility] Hep C w/o coma, chronic Hep C w/o coma, chronic Disease Active 2004-04 00:00: 00 [facility] Severe obstructiv e sleep apnea Severe obstructiv e sleep apnea Disease Active 2003-04 00:00: 00 Overview: Formattin g of this note might be different from the original. 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 Utility [facility] Essential hypertensi on Essential hypertensi on Disease Recurre nce 0 9-29 00:00: 00 [facility] Bacteremia Bacteremia Disease Resolve d 12-31 00:00: 00 2018-05-13 00:00:00 2018-05-13 20:59:49 [facility] Sepsis due to [place] a coli Sepsis due to [place] a coli Disease Resolve d 12-31 00:00: 00 2018-05-13 00:00:00 2018-05-13 20:44:03 [facility] Pyelonephr itis Pyelonephr itis Disease Resolve d 12-31 00:00: 00 2018-05-13 00:00:00 2018-05-13 20:59:35 [facility] Acute chest pain Acute chest pain Disease Resolve d 3-28 00:00: 00 2018-05-13 00:00:00 2018-05-13 20:59:42 [facility] Pancreatit is, gallstone Pancreatit is, gallstone Disease Resolve d 6- 00:00: 00 2014-10-16 00:00:00 2014-10-16 16:14:15 [facility] Pancreatit is, acute Pancreatit is, acute Disease Resolve d 09-16 00:00: 00 2014-10-16 00:00:00 2014-10-16 16:14:11 [facility] [facility] Calcineuri n inhibitor toxicity, therapeuti c use Calcineuri n inhibitor toxicity, therapeuti c use Disease Resolve d 01-22 00:00: 00 2014-10-16 00:00:00 2021-11-11 00:26:42 [facility] Abdominal pain, other specified site Abdominal pain, other specified site Disease Resolve d 01-21 00:00: 00 2014-10-16 00:00:00 2021-11-11 00:26:42 [facility] Palpitatio ns Palpitatio ns Disease Resolve d 12-15 00:00: 00 2014-10-16 00:00:00 2014-10-16 16:14:09 [facility] Chest pain Chest pain Disease Resolve d 12-15 00:00: 00 2014-10-16 00:00:00 2021-11-11 00:17:23 [facility] Unspecifie d intestinal obstructio n Unspecifie d intestinal obstructio n Disease Resolve d 2 00:00: 00 2014-10-16 00:00:00 2014-10-16 16:13:44 [facility] URIN TRACT INFECTION NOS URIN TRACT INFECTION NOS Disease Resolve d 5- 00:00: 00 2014-10-16 00:00:00 2014-10-16 16:14:29 [facility] Pneumonia, organism unspecifie d(486) Pneumonia, organism unspecifie d(486) Disease Resolve d 2004-04 00:00: 00 2014-10-16 00:00:00 2014-10-16 16:14:22 [facility] Complicati on of transplant ed kidney Complicati on of transplant ed kidney Disease Resolve d 2004-04 00:00: 00 2014-10-16 00:00:00 2021-11-11 00:07:32 [facility] Complicati on of transplant ed organ Complicati on of transplant ed organ Disease Resolve d 2004-04 00:00: 00 2014-10-16 00:00:00 2021-11-11 00:12:45 [facility] Pleural effusion Pleural effusion Disease Resolve d 05-19 00:00: 00 2014-10-16 00:00:00 2015-01-27 17:42:52 [facility] Acute myocardial infarction of other specified sites, episode of care unspecifie d Acute myocardial infarction of other specified sites, episode of care unspecifie d Disease Resolve d 04-28 00:00: 00 2014-10-16 00:00:00 2014-10-16 16:14:02 [facility] Peptic ulcer Peptic ulcer Disease Resolve d 04-28 00:00: 00 2014-10-16 00:00:00 2015-01-27 17:42:52 [facility] Disease of pericardiu m Disease of pericardiu m Disease Resolve d 2014-10-16 00:00:00 2015-01-27 17:42:52 [facility] Bladder leak post transplant Bladder leak post transplant Disease Resolve d 04-29 00:00: 00 2005-05-07 00:00:00 2010-05-31 20:48:07 [facility] Hydronephr osis Hydronephr osis Disease Resolve d 2004-04 00:00: 00 2005-05-01 00:00:00 2010-05-31 20:52:10 [facility] TUBUALR NECROSIS ACUTE TUBUALR NECROSIS Disease Resolve d 2004-04 00:00: 00 2005-03-29 00:00:00 2010-05-31 20:46:10 [facility] Seroma Seroma Disease Resolve d 2004-04 00:00: 00 2005-03-29 00:00:00 2010-05-31 20:49:57 [facility] Edema Edema Disease Resolve d 2004-04 00:00: 00 2005-03-29 00:00:00 2010-05-31 20:50:18 [facility] Urinary tract infection, site not specified Urinary tract infection, site not specified Disease Resolve d 2004-04 00:00: 00 2005-03-26 00:00:00 2010-02-08 15:14:44 [facility] End stage renal disease End stage renal disease Disease Resolve d 2003-04 00:00: 00 2005-03-08 00:00:00 2021-11-11 00:07:30 [facility] Acute edema of lung Acute edema of lung Disease Resolve d 05-19 00:00: 00 2004-05-29 00:00:00 2021-11-11 00:12:45 [facility] Allergies, Adverse Reactions, Alerts Allergy Name Allergy Type Status Severity Reaction(s) Onset Date Inactive Date Treating Clinician Comments Source NO KNOWN ALLERGIE S Drug Class Active [facility] Family History Family Member Diagnosis Comments Start Date Stop Date Sourc e [facility] brother Coronary Heart Disease [facility] Maternal [facility] Natural mother Hy[facility] Natural sister Hy[facility] Social History Social Habit Start Date Stop Date Quantity Comments Source Gender identity Tacho luis [facility] Sexual orientation [facility] History of tobacco use Cigarette Smoker [facility] History of Occupation [facility] History SDOH Alcohol Frequency [facility] History SDOH Alcohol Std Drinks [facility] History SDOH Alcohol Binge [facility] Alcoholic beverage intake 2024-11-10 00:00:00 2024-11-10 00:00:00 Current drinker of alcohol (finding) [facility] History of Social function 2024-11-10 00:00:00 2024-11-10 00:00:00 [facility] Sex 2024-11-09 11:11:50 2024-11-09 11:11:50 Male (finding) [facility] Tobacco use and exposure 2023-10-07 00:00:00 2023-10-07 00:00:00 Smokeless tobacco non-user [facility] Alcohol intake 2023-07-31 00:00:00 2023-07-31 00:00:00 Current non-drinker of alcohol (finding) [facility] Exposure to SARS-CoV-2 (event) 2022-09-14 00:00:00 2022-09-24 13:34:00 Not sure [facility] Tobacco Comment 2021-11-14 00:00:00 2021-11-14 00:00:00 Denies. Former smoker , 0.5 ppd Quit 6 yrs ago [facility] Cigarettes smoked current (pack per day) - Reported 2021-11-14 00:00:00 2021-11-14 00:00:00 [facility] Education 2019-02-12 00:00:00 2019-02-12 00:00:00 17 [facility] History SDOH Financial 2019-02-12 00:00:00 2019-02-12 00:00:00 5 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 Sex assigned at 1955 00:00:00 1955 00:00:00 [facility] Smoking Status Start Date Stop Date Source Never smoked tobacco Rakel Huff [facility] Ex-smoker 2023-10-07 00:00:00 2023-10-07 00:00:00 [facility]ations Ordered Medication Name Filled Medication Name Start Date Stop Date Current Medication? Ordering Clinician Indication Dosage Frequency Signature (SIG) Comments Components Source tacrolimus (PROGRAF) capsule 3 mg 01-07 23:00: 00 01-07 22:34 :28 No 3mg 3 mg, Oral, Q12HA2, First dose (after last modificati on) on Fri01/07/25 at 1800, Until Discontinu ed, Routine, 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 Restricted medication : SAÚL MONREAL [facility] NaCl 0.9% (NS) bolus infusion 500 mL 01-07 15:30: 00 01-07 14:49 :00 No 500mL at 999 mL/hr, 500 mL, IV Piggyback, ONCE, 1 dose, On Fri01/07/25 at 1030, Routine [facility] tacrolimus 1 mg capsule tacrolimus 1 mg capsule 01-07 00:00: 00 Yes [id number] 3mg Take 3 capsules by mouth in the morning and 3 capsules in the evening. [facility] Magnesium Oxide-Mg AA Chelate 133 mg tablet Magnesium Oxide-Mg AA Chelate 133 mg tablet 01-07 00:00: 00 Yes [id number] 133mg Take 1 tablet by mouth in the morning and 1 tablet in the evening. [facility] tacrolimus (PROGRAF) capsule 1 mg tacrolimus (PROGRAF) capsule 1 mg 01-06 17:15: 00 01-06 18:39 :00 Yes 1mg 1 mg, Oral, ONCE, 1 dose, On Peg 25 at 1215, Routine, 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 Restricted medication : SAÚL MONREAL [facility] iopamidol (ISOVUE 300-100 mL) injection 100 mL 01-06 16:00: 00 01-06 16:00 :00 No [id number] 100mL 100 mL, Enteral, ONCE, 1 dose, On Fri01/06/25 at 1100, Routine [facility] cefTRIAXone (ROCEPHIN) 1,000 mg in sterile water for injection 10 mL IV Push cefTRIAXone (ROCEPHIN) 1,000 mg in sterile water for injection 10 mL IV Push 01-06 14:15: 00 01-06 13:45 :00 Yes [id number] 1000mg 1,000 mg, Intravenou s, ONCE, 1 dose, On Fri01/06/25 at 0915, 10 mL, Reason for Anti-Infec tive: Surgical Prophylaxi s, Surgical Prophylaxi s: Vascular, Duration of therapy: within 24 hours of surgery [facility] magnesium sulfate in water 2 gram/50 mL (4 %) infusion 2 g magnesium sulfate in water 2 gram/50 mL (4 %) infusion 2 g 01-06 13:45: 00 01-06 19:51 :00 Yes 2g 2 g, Intravenou s, ONCE, 1 dose, On Fri01/06/25 at 0845, 50 mL [facility] lidocaine 1% (PF) (XYLOCAINE) injection 01-06 13:29: 19 01-06 13:29 :19 No PRN, Starting on Fri01/06/25 at 0829, Until Peg 01/06/25 at 0829, Routine, Intra-op [facility] fentanyl PF (SUBLIMAZE (PF)) injection 01-06 13:22: 30 01-06 14:30 :00 No Slow IV Push, PRN, Starting on Peg 01/06/25 at 0822, Until Peg 01/06/25 at 0930, Routine, Intra-op [facility] midazolam (VERSED) 1 mg/mL injection 01-06 13:22: 30 01-06 13:22 :30 No PRN, Starting on Fri01/06/25 at 0822, Until Fri01/06/25 at 0822, Routine, Intra-op [facility] polyethylen e glycol 3350 powder 17 g polyethylen e glycol 3350 powder 17 g 01-05 14:00: 00 01-07 13:14 :41 Yes 17g 17 g, Oral, DAILY, First dose on Fri01/05/25 at 0900, Until Discontinu ed, Routine [facility] magnesium sulfate in water 2 gram/50 mL (4 %) infusion 2 g magnesium sulfate in water 2 gram/50 mL (4 %) infusion 2 g 01-05 13:15: 00 01-05 14:17 :00 Yes 2g 2 g, Intravenou s, ONCE, 1 dose, On Fri01/05/25 at 0815, 50 mL [facility] tacrolimus (PROGRAF) capsule 2 mg tacrolimus (PROGRAF) capsule 2 mg 01-04 23:00: 00 01-06 16:26 :03 Yes 2mg 2 mg, Oral, Q12HA2, First dose (after last modificati on) on Fri01/04/25 at 1800, Until Discontinu ed, Routine, 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 Restricted medication : SAÚL MONREAL [facility] magnesium sulfate in water 2 gram/50 mL (4 %) infusion 2 g magnesium sulfate in water 2 gram/50 mL (4 %) infusion 2 g 01-04 13:00: 00 01-04 14:16 :00 Yes 2g 2 g, Intravenou s, ONCE, 1 dose, On Fri01/04/25 at 0800, 50 mL [facility] tacrolimus (PROGRAF) capsule 3 mg tacrolimus (PROGRAF) capsule 3 mg 01-03 23:00: 00 01-04 18:37 :33 Yes 3mg 3 mg, Oral, Q12HA2, First dose (after last modificati on) on Fri01/03/25 at 1800, Until Discontinu ed, Routine, 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 Restricted medication : BRAN ELISE [facility] magnesium sulfate in D5W 1 gram/100 mL RTU IV Piggyback 1 g magnesium sulfate in D5W 1 gram/100 mL RTU IV Piggyback 1 g 01-03 18:30: 00 01-03 20:24 :00 Yes 1g 1 g, Intravenou s, ONCE, 1 dose, On 01/03/25 at 1330, 100 mL [facility] magnesium sulfate in D5W 1 gram/100 mL RTU IV Piggyback 1 g magnesium sulfate in D5W 1 gram/100 mL RTU IV Piggyback 1 g 01-02 13:30: 00 01-02 14:41 :00 Yes 1g 1 g, Intravenou s, ONCE, 1 dose, On Fri01/02/25 at 0830, 100 mL [facility] magnesium sulfate in D5W 1 gram/100 mL RTU IV Piggyback 1 g magnesium sulfate in D5W 1 gram/100 mL RTU IV Piggyback 1 g 01-01 13:00: 00 01-01 17:43 :00 Yes 1g 1 g, Intravenou s, ONCE, 1 dose, On 01/01/25 at 0800, 100 mL [facility] Magnesium Oxide-Mg AA Chelate (MG-PLUS-WI OTEIN) 133 mg tablet 133 mg Magnesium Oxide-Mg AA Chelate (MG-PLUS-WI OTEIN) 133 mg tablet 133 mg 01-01 01:00: 00 Yes 133mg 133 mg, Oral, BID, First dose on Fri12/31/24 at 2000, Until Discontinu ed, Routine [facility] fentanyl PF (SUBLIMAZE (PF)) injection 12-31 17:10: 00 12-31 17:10 :00 No Slow IV Push, PRN, Starting on Fri12/31/24 at 1210, Until Fri12/31/24 at 1210, Routine, Intra-op [facility] midazolam (VERSED) 1 mg/mL injection 12-31 17:10: 00 12-31 17:10 :00 No PRN, Starting on Fri12/31/24 at 1210, Until Fri12/31/24 at 1210, Routine, Intra-op [facility] lidocaine 1% (PF) (XYLOCAINE) injection 12-31 17:10: 00 12-31 17:10 :00 No PRN, Starting on Fri12/31/24 at 1210, Until Fri12/31/24 at 1210, Routine, Intra-op [facility] magnesium sulfate in water 2 gram/50 mL (4 %) infusion 2 g magnesium sulfate in water 2 gram/50 mL (4 %) infusion 2 g 12-31 16:15: 00 12-31 19:52 :00 Yes 2g 2 g, IV Piggyback, Administer over 60 Minutes, ONCE, 1 dose, On Fri12/31/24 at 1115, Routine [facility] sennosides (SENOKOT) tablet 8.6 mg 12-31 14:15: 00 Yes 8.6mg 8.6 mg, Oral, QDAILYPRN, Starting on Fri12/31/24 at 0915, Until Discontinu ed, Routine, Constipati on [facility] famotidine 20 mg tablet famotidine 20 mg tablet 12-31 00:00: 00 Yes [id number] 20mg Take 1 tablet by mouth in the morning. [facility] sennosides 8.6 mg tablet sennosides 8.6 mg tablet 12-31 00:00: 00 Yes [id number] 8.6mg Take 1 tablet by mouth once daily as needed for Constipati on. [facility] iron dextran (INFED) 1,000 mg in NaCl 0.9% (NS) 250 mL IV infusion iron dextran (INFED) 1,000 mg in NaCl 0.9% (NS) 250 mL IV infusion 12-30 20:00: 00 12-30 23:29 :00 Yes 1000mg 1,000 mg, IV Infusion, ONCE, 1 dose, On Peg 12/30/24 at 1500, Administer over 1 Hours, 250 mL [facility] iron dextran (INFED) 25 mg in NaCl 0.9% (NS) 50 mL IV piggyback iron dextran (INFED) 25 mg in NaCl 0.9% (NS) 50 mL IV piggyback 12-30 19:00: 00 12-30 22:28 :00 Yes 25mg 25 mg, IV Piggyback, ONCE, 1 dose, On Fri12/30/24 at 1400, Administer over 15 Minutes, 50 mL [facility] magnesium sulfate in water 2 gram/50 mL (4 %) infusion 2 g magnesium sulfate in water 2 gram/50 mL (4 %) infusion 2 g 12-30 14:15: 00 12-30 15:45 :00 Yes 2g 2 g, Intravenou s, ONCE, 1 dose, On Fri12/30/24 at 0915, 50 mL [facility] gadobenate dimeglumine (MULTIHANCE ) injection 16.96 mL 12-30 10:00: 00 12-30 10:00 :00 No [id number] .2mL/kg 16.96 mL (0.2 mL/kg ?84.8 kg), Intravenou s, ONCE, 1 dose, On Fri12/30/24 at 0500, Routine [facility] mycophenola te (CELLCEPT) capsule 500 mg mycophenola te (CELLCEPT) capsule 500 mg 12-30 01:00: 00 01-07 22:34 :28 Yes 500mg 500 mg, Oral, Q12H, First dose (after last modificati on) on Fri12/29/24 at 2000, Until Discontinu ed, Routine, Is patient of reproducti ve potential? No [facility] labetaloL 200 mg tablet labetaloL 200 mg tablet 12-30 00:00: 00 Yes [id number] 200mg Take 1 tablet by mouth in the morning and 1 tablet in the evening. [facility] tacrolimus (PROGRAF) capsule 5 mg tacrolimus (PROGRAF) capsule 5 mg 12-29 23:00: 00 01-03 15:14 :08 Yes 5mg 5 mg, Oral, Q12HA2, First dose (after last modificati on) on Fri12/29/24 at 1800, Until Discontinu ed, Routine, 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 Restricted medication : BRAN ELISE [facility] heparin (porcine) injection 5,000 unit [id number] 3701-0 9-03 19:00: 00 01-07 22:34 :28 Yes 5000U 5,000 unit, Subcutaneo us, Q8H, First dose on Fri12/29/24 at 1400, Until Discontinu ed, Routine [facility] D5W 0.9% NaCl (NS) IV infusion 1,000 mL 12-29 15:00: 00 01-05 12:20 :50 No 1000mL at 50 mL/hr, 1,000 mL, IV Infusion, CONTINUOUS , Starting on Fri12/29/24 at 1000, Until Fri01/05/25 at 0720, Routine [facility] D5W 0.9% NaCl (NS) IV infusion 1,000 mL 12-27 15:30: 00 12-29 13:44 :41 No 1000mL at 50 mL/hr, 1,000 mL, IV Infusion, CONTINUOUS , Starting on Fri12/27/24 at 1030, Until Fri12/29/24 at 0844, Routine [facility] D5W 0.9% NaCl (NS) IV infusion 1,000 mL 12-26 22:45: 00 12-27 15:21 :28 No 1000mL at 100 mL/hr, 1,000 mL, IV Infusion, CONTINUOUS , Starting on Fri12/26/24 at 1745, Until Fri12/27/24 at 1021, Routine [facility] famotidine (PEPCID AC) tablet 20 mg famotidine (PEPCID AC) tablet 20 mg 12-26 14:00: 00 Yes 20mg 20 mg, Oral, DAILY, First dose on Fri12/26/24 at 0900, Until Discontinu ed, Routine [facility] iopamidol (ISOVUE 300-100 mL) injection 35 mL 12-25 20:15: 00 12-25 20:15 :00 No [id number] 35mL 35 mL, Intravenou s, ONCE, 1 dose, On 12/25/24 at 1515, Routine [facility] lidocaine-e pinephrine (XYLOCAINE W/EPINEPHRI NE) 2 %-1:200,000 injection 12-25 18:45: 54 12-25 18:45 :54 No PRN, Starting on Fri12/25/24 at 1345, Until Fri12/25/24 at 1345, Routine, Intra-op [facility] fentanyl PF (SUBLIMAZE (PF)) injection 12-25 18:45: 36 12-25 18:45 :36 No Slow IV Push, PRN, Starting on 12/25/24 at 1345, Until 12/25/24 at 1345, Routine, Intra-op [facility] fentanyl PF (SUBLIMAZE (PF)) injection 12.5 mcg fentanyl PF (SUBLIMAZE (PF)) injection 12.5 mcg 12-25 15:09: 33 01-07 22:34 :28 Yes 12.5ug 12.5 mcg, Slow IV Push, Q6HPRN, Starting on Fri12/25/24 at 1009, Until Fri01/07/25 at 1734, Routine, Pain (scale 7-10) [facility] sennosides (SENOKOT) tablet 8.6 mg sennosides (SENOKOT) tablet 8.6 mg 12-25 14:00: 00 12-31 14:05 :03 Yes 8.6mg 8.6 mg, Oral, DAILY, First dose on 12/25/24 at 0900, Until Discontinu ed, Routine [facility] alteplase (CATHFLO ACTIVASE) injection 2 mg alteplase (CATHFLO ACTIVASE) injection 2 mg 12-25 13:15: 00 12-25 15:52 :00 Yes 2mg 2 mg, INTRA-CATH ETER, ONCE, 1 dose, On 12/25/24 at 0815, Routine [facility] morpHINE injection 2 mg morpHINE injection 2 mg 12-25 07:45: 00 12-25 07:10 :00 Yes 2mg 2 mg, Slow IV Push, ONCE, 1 dose, On Fri12/25/24 at 0245, Routine [facility] sodium chloride 0.9 % irrigation solution 3,000 mL sodium chloride 0.9 % irrigation solution 3,000 mL 12-25 06:17: 11 01-07 22:34 :28 Yes 3000mL 3,000 mL, Irrigation , PRN, Starting on Fri12/25/24 at 0117, Until Fri01/07/25 at 1734, 3,000 mL [facility] labetaloL (NORMODYNE) tablet 200 mg labetaloL (NORMODYNE) tablet 200 mg 12-25 01:00: 00 Yes 200mg 200 mg, Oral, Q12H, First dose on Fri12/24/24 at 2000, Until Discontinu ed, Routine [facility] mycophenola te (CELLCEPT) capsule 250 mg mycophenola te (CELLCEPT) capsule 250 mg 12-25 01:00: 00 12-29 14:59 :15 Yes 250mg 250 mg, Oral, Q12H, First dose (after last modificati on) on Fri12/24/24 at 2000, Until Discontinu ed, Routine, Is patient of reproducti ve potential? No [facility] polyethylen e glycol 3350 powder 17 g polyethylen e glycol 3350 powder 17 g 12-24 20:45: 00 12-31 14:05 :03 Yes 17g 17 g, Oral, DAILY, First dose on Fri12/24/24 at 1545, Until Discontinu ed, [facility] mid[facility] ([facility]ED[facility] 1 mg/mL injection 12-24 19:00: 51 12-24 19:00 :51 No PRN, Starting on Fri12/24/24 at 1400, Until Fri12/24/24 at 1400, Routine, Intra-op [facility] FENTanyl (PF) (SUBLIMAZE) injection 12-24 19:00: 00 12-24 19:00 :00 No Slow IV Push, PRN, Starting on Fri12/24/24 at 1400, Until Fri12/24/24 at 1400, Routine, Intra-op [facility] ciprofloxac in in 5 % dextrose (CIPRO) piggyback 12-24 18:44: 55 12-24 18:44 :55 No CONTINUOUS PRN, Starting on Fri12/24/24 at 1344, Until Fri12/24/24 at 1344, Administer over 60 Minutes, Intra-op [facility] lidocaine-e pinephrine (XYLOCAINE WITH EPINEPHRINE ) 1 %-1:100,000 injection 12-24 18:40: 00 12-24 18:40 :00 No PRN, Starting on Fri12/24/24 at 1340, Until Fri12/24/24 at 1340, Routine, Intra-op [facility] lidocaine 1% (XYLOCAINE) 10 mg/mL (1 %) injection 12-24 18:40: 00 12-24 18:40 :00 No PRN, Starting on Fri12/24/24 at 1340, Until Fri12/24/24 at 1340, Routine, Intra-op [facility] amLODIPine (NORVASC) tablet 10 mg amLODIPine (NORVASC) tablet 10 mg 12-24 14:00: 00 01-07 22:34 :28 Yes 10mg 10 mg, Oral, DAILY, First dose on Fri12/24/24 at 0900, Until Discontinu ed, Routine [facility] tamsulosin (FLOMAX) capsule 0.8 mg tamsulosin (FLOMAX) capsule 0.8 mg 12-24 02:00: 00 01-07 22:34 :28 Yes .8mg 0.8 mg, Oral, QHS, First dose on Fri12/23/24 at 2100, Until Discontinu ed, [facility]ine [facility] pravastatin (PRAVACHOL) tablet 40 mg pravastatin (PRAVACHOL) tablet 40 mg 12-24 02:00: 00 01-07 22:34 :28 Yes 40mg 40 mg, Oral, QHS, First dose on Fri12/23/24 at 2100, Until Discontinu ed, Routine [facility] mirtazapine (REMERON) tablet 7.5 mg mirtazapine (REMERON) tablet 7.5 mg 12-24 02:00: 00 01-07 22:34 :28 Yes 7.5mg 7.5 mg, Oral, QHS, First dose on Fri12/23/24 at 2100, Until Discontinu ed, Routine [facility] cefTRIAXone (ROCEPHIN) 1,000 mg in sterile water for injection 10 mL IV Push cefTRIAXone (ROCEPHIN) 1,000 mg in sterile water for injection 10 mL IV Push 12-23 18:30: 00 12-27 18:27 :00 Yes 1000mg 1,000 mg, Intravenou s, Q24H ABX, 5 doses, First dose on Fri12/23/24 at 1330, Last dose on Fri12/27/24 at 1330, 10 mL, Reason for Anti-Infec tive: Documented Infection, Documented Infection Site: Urine, Duration of therapy: 7 days [facility] predniSONE (DELTASONE) tablet 5 mg predniSONE (DELTASONE) tablet 5 mg 12-23 14:00: 00 01-07 22:34 :28 Yes 5mg 5 mg, Oral, QAM, First dose on Fri12/23/24 at 0900, Until Discontinu ed, Routine [facility] ezetimibe (ZETIA) tablet 10 mg ezetimibe (ZETIA) tablet 10 mg 12-23 14:00: 00 01-07 22:34 :28 Yes 10mg 10 mg, Oral, QAM, First dose on Fri12/23/24 at 0900, Until Discontinu ed, Routine [facility] allopurinoL (ZYLOPRIM) tablet 100 mg allopurinoL (ZYLOPRIM) tablet 100 mg 12-23 14:00: 00 01-07 22:34 :28 Yes 100mg 100 mg, Oral, DAILY, First dose on Fri12/23/24 at 0900, Until Discontinu ed, Routine [facility] calcium carbonate (OSCAL-500) tablet 500 mg calcium carbonate (OSCAL-500) tablet 500 mg 12-23 14:00: 00 12-31 15:07 :06 Yes 500mg 500 mg, Oral, DAILY, First dose on Fri12/23/24 at 0900, Until Discontinu ed, Routine [facility] aspirin chewable tablet 81 mg aspirin chewable tablet 81 mg 12-23 14:00: 00 12-25 12:07 :51 Yes 81mg 81 mg, Oral, DAILY, First dose on Fri12/23/24 at 0900, Until Discontinu ed, Routine [facility] tacrolimus (PROGRAF) capsule 5 mg tacrolimus (PROGRAF) capsule 5 mg 12-23 13:00: 00 12-29 13:45 :52 Yes 5mg 5 mg, Oral, Q12H, First dose on Fri12/23/24 at 0800, Until Discontinu ed, Routine, 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 Restricted medication : BRAN ELISE [facility] heparin 25,000 Units/250 mL (Premixed Bag) in 0.45 % NS heparin 25,000 Units/250 mL (Premixed Bag) in 0.45 % NS 12-23 13:00: 00 12-25 05:39 :47 Yes 0U/h 0-2,800 Units/hr (0-28 mL/hr), IV Infusion, CONTINUOUS , Starting on Fri12/23/24 at 0800, Initiate at 1,300 Units/hr (calculate d at 18 units/kg/h r, rounded to the closest 50 units) DO NOT Exceed the MAXIMUM 1,300 units/hr for initiation of heparin drip. CAUTION - If LMWH given in ER, AVOID bolus and start next dose/drip 12 hrs after ER dosage. Must program rate using programmab le infusion pump. Check with the ordering provider first prior to any administra tion should the patient be on existing/a dditional anticoagul ant therapy. Range, Dosing and Testing: [facility] - aPTT < 35: Bolus 5000 units, increase rate 300 units/hr - aPTT 35-44: Bolus 3000 units, increase rate 200 units/hr - aPTT 45-54: Increase rate 100 units/hr - aPTT 55-85: NO CHANGE - aPTT 86-95: Decrease rate 100 units/hr - aPTT 96-120: Hold 30 minutes, decrease rate 150 units/hr - aPTT > 120: Hold 60 minutes, decrease rate 200 units/hr Check aPTT 6 hours after initiation , then Q6H after every change, aPTT Q12H once therapeuti c levels are reached. FOR [facility] ONLY - aPTT < 40: Bolus 5000 units, increase rate 300 units/hr - aPTT 40-49: Bolus 3000 units, increase rate 200 units/hr - aPTT 50-59: Increase rate 100 units/hr - aPTT 60-85: NO CHANGE - aPTT 86-95: Decrease rate 100 units/hr - aPTT 96-120: Hold 30 minutes, decrease rate 150 units/hr - aPTT > 120: Hold 60 minutes, decrease rate 200 units/hr Check aPTT 6 hours after initiation , then Q6H after every change, aPTT Q12H once therapeuti c levels are reached. DO NOT ADJUST INITIAL BOLUS OR INITIAL INFUSION RATE. [facility] mycophenola te (CELLCEPT) capsule 500 mg mycophenola te (CELLCEPT) capsule 500 mg 12-23 13:00: 00 12-24 18:29 :44 Yes 500mg 500 mg, Oral, Q12H, First dose on Peg 12/23/24 at 0800, Until Discontinu ed, Routine, Is patient of reproducti ve potential? No [facility] heparin 1000 unit/mL injection Soln 5,000 unit [id number] 9616-0 8-28 13:00: 00 12-23 15:31 :00 Yes 5000U 5,000 unit, IV Push, ONCE, 1 dose, On Fri12/23/24 at 0800, Routine [facility] heparin (1,000 unit/mL, 10 mL vial) [id number] 3430-0 8-28 12:51: 01 12-25 05:40 :29 Yes 3000U FOR REBOLUSING , Starting on Fri12/23/24 at 0751, Until 12/25/24 at 0040, Routine, Dosing based on aPTT testing parameters (refer to continuous heparin drip order) [facility] heparin (porcine) injection 5,000 unit [id number] 2593-0 8-28 11:00: 00 12-23 13:06 :17 Yes 5000U 5,000 unit, Subcutaneo us, Q8H, First dose on Fri12/23/24 at 0600, Until Discontinu ed, Routine [facility] lactated ringers IV infusion 1,000 mL 12-23 09:30: 00 12-23 09:56 :00 No 1000mL at 999 mL/hr, 1,000 mL, Intravenou s, ONCE, 1 dose, On Fri12/23/24 at 0430, Routine [facility] acetaminoph en (TYLENOL) tablet 650 mg acetaminoph en (TYLENOL) tablet 650 mg 12-23 08:01: 42 01-07 22:34 :28 Yes 650mg 650 mg, Oral, Q6HPRN, Starting on Fri12/23/24 at 0301, Until Fri01/07/25 at 1734, Routine, Pain (scale 1-3) [facility] aspirin 81 MG chewable tablet aspirin 81 MG chewable tablet 11-20 00:00: 00 12-20 23:59 :00 No 81mg QD Chew 1 tablet 1 time each day. Rakel Zepeda magnesium oxide (Mag-Ox) 250 MG tablet magnesium oxide (Mag-Ox) 250 MG tablet 11-19 17:15: 01 11-19 00:00 :00 No 250mg QD Take 250 mg by mouth 1 time each day. Rakel Huff [facility] dupilumab (Dupixent) 300 MG/2ML Pre-filled Auto-Inject [...] After use, clean tip and replace cap. Rakel Huff [facility] magnesium oxide (Mag-Ox) tablet 800 mg magnesium oxide (Mag-Ox) tablet 800 mg 11-19 12:45: 00 11-19 13:47 :00 No 800mg 800 mg, Oral, Once, On Fri11/19/24 at 1245, For 1 dose Rakel Huff [facility] sodium bicarbonate tablet 650 mg sodium bicarbonate tablet 650 mg 11-19 10:15: 00 Yes 650mg Q.5D 650 mg, Oral, 2 times daily, First dose on Fri11/19/24 at 1015 Rakel Huff [facility] mycophenola te (Cellcept) 250 MG capsule mycophenola te (Cellcept) 250 MG capsule 11-19 00:00: 00 12-19 23:59 :00 No 500mg Q.5D Take 2 capsules by mouth in the morning and 2 capsules in the evening. Rakel Huff [facility] sodium bicarbonate 650 MG tablet sodium bicarbonate 650 MG tablet 11-19 00:00: 00 12-19 23:59 :00 No 650mg Q.5D Take 1 tablet by mouth in the morning and 1 tablet in the evening. Rakel Bradfordann [facility] magnesium oxide (Mag-Ox) tablet 800 mg [...] modificati on) on Fri11/17/24 at 2100 Rakel Zepeda heparin injection 5,000 Units heparin injection 5,000 Units 11-17 14:00: 00 Yes 5000U Q8H 5,000 Units, Subcutaneo us, Every 8 hours, First dose on Fri11/17/24 at 1400 Rakel Zepeda calcium carbonate (Os-Willie) 1250 (500 Ca) MG tablet 500 mg of elemental calcium calcium carbonate (Os-Willie) 1250 (500 Ca) MG tablet 500 mg of elemental calcium 11-16 08:00: 00 Yes 1250mg 500 mg of elemental calcium (1,250 mg), Oral, Every morning, First dose (after last reorder) on Fri11/16/24 at 0800 Rakel Zepeda technetium Tc-99m pyrophospha te (PYP) radio-isoto pe injection 23.1 millicurie technetium Tc-99m pyrophospha te (PYP) radio-isoto pe injection 23.1 millicurie 11-15 11:15: 00 11-15 11:00 :00 No 23.1mCi 23.1 millicurie , Intravenou s, Once, On Fri11/15/24 at 1115, For 1 dose Rakel Zepeda gadobenate dimeglumine (Multihance ) injection 17 mL [...] can administer medication just before MRI Rakel Huff [facility] sodium chloride 0.9 % bolus 1,000 mL sodium chloride 0.9 % bolus 1,000 mL 11-15 06:00: 00 11-15 07:01 :00 No 1000mL 1,000 mL, Intravenou s, at 1,000 mL/hr, Administer over 1 Hours, Once, On Fri11/15/24 at 0600, For 1 dose, IV fluid to start at 0600 am prior to MRI Rakel l Stewart [facility] sodium chloride 0.9 % infusion sodium [...] 6 hours after decrease in dose. Rakel Huff [facility] gadoteridol (Prohance) injection 5,586 mg gadoteridol (Prohance) injection 5,586 mg 11-12 11:17: 43 11-12 11:18 :00 No 20mL 5,586 mg (20 mL), Intravenou s, Once in imaging, Starting on Fri11/12/24 at 1117, For 1 dose Uniqueoria allison Huff [facility] mycophenola te (Cellcept) capsule 500 mg mycophenola te (Cellcept) capsule 500 mg 11-11 17:00: 00 Yes 500mg Q.5D 500 mg, Oral, 2 times daily, First dose on Fri11/11/24 at 1700, TIME CRITICAL MEDICATION (Same As: CellCept) SEPARATE ANTACIDS from Cellcept by 2 hrs. (Do Not Crush) Hazardous Drug Group 2:Non-anti neoplastic Hazardous Drug -- Refer to safe handling procedure PPE [employer] Rakel Huff [facility] aspirin chewable tablet 81 mg aspirin chewable tablet 81 mg 11-11 13:00: 00 Yes 81mg QD 81 mg, Oral, Daily, First dose on Fri11/11/24 at 1300 Rakel Huff [facility] magnesium oxide (Mag-Ox) tablet 400 mg magnesium oxide (Mag-Ox) tablet 400 mg 11-10 12:30: 00 11-10 12:37 :00 No 400mg 400 mg, Oral, Once, On Fri11/10/24 at 1230, For 1 dose Rakel Huff [facility] potassium chloride CR (Klor-Con M20) ER tablet 40 mEq potassium chloride CR (Klor-Con M20) ER tablet 40 mEq 11-10 12:30: 00 11-10 12:37 :00 No 40meq 40 mEq, Oral, Once, On Fri11/10/24 at 1230, For 1 dose, For patients able to take medication s orally or via feeding tube >/= 14 [place], may dissolve each 20 mEq tablet in 4 oz of water. Allow about 2 minutes for the tablets to disintegra te. Stir before giving to prepare slurry and administer . Please exclude patient's with feeding tube less than 14 [place] (Dobhoff, J-tube, etc) and pediatric and patients Do not crush or chew. Rakel Bradfordann Epic sulfur hexafluorid e lipid-type A microsphere [...] 5 mg minoxidil (Loniten) tablet 5 mg 5-0 11-10 09:00: 00 Yes 5mg Q.5D 5 mg, Oral, 2 times daily, First dose on Fri11/10/24 at 0900, On hold since Fri11/14/2024 at 1049 until manually unheld Rakel Zepeda furosemide (Lasix) tablet 20 mg furosemide (Lasix) tablet 20 mg 2024-0 11-10 09:00: 00 Yes 20mg Q.5D 20 mg, Oral, 2 times daily, First dose (after last modificati on) on Fri11/10/24 at 0900, On hold since Fri11/10/2024 at 1453 until manually unheld Rakel Huff [facility] labetalol (Normodyne) tablet 200 mg labetalol (Normodyne) tablet 200 mg 2024-11-10 09:00: 00 11-17 11:51 :11 No 200mg Q12H 200 mg, Oral, Every 12 hours, First dose (after last modificati on) on Fri11/10/24 at 0900 Rakel Huff [facility] Oyster Shell Calcium tablet 500 mg of elemental calcium Oyster Shell Calcium tablet 500 mg of elemental calcium 11-10 08:30: 00 11-15 21:43 :30 No 500mg 500 mg of elemental calcium (500 mg), Oral, Every morning, First dose on Fri11/10/24 at 0830 Rakel Huff [facility] predniSONE (Deltasone) tablet 5 mg predniSONE (Deltasone) tablet 5 mg 2024-0 11-10 07:00: 00 Yes 5mg 5 mg, Oral, Every morning, First dose on Fri11/10/24 at 0700 Rakel Huff [facility] lisinopril tablet 5 mg lisinopril tablet 5 mg 2024-0 11-10 07:00: 00 Yes 5mg Rakel Huff [facility] ezetimibe (Zetia) tablet 10 mg ezetimibe (Zetia) tablet 10 mg 11-10 07:00: 00 Yes 10mg 10 mg, Oral, Every morning, First dose on Fri11/10/24 at 0700 Rakel Huff [facility] amLODIPine (Norvasc) tablet 10 mg amLODIPine (Norvasc) tablet 10 mg 11-10 07:00: 00 Yes 10mg 10 mg, Oral, Every morning, First dose on Fri11/10/24 at 0700 Rakel Huff [facility] allopurinol (Zyloprim) tablet 100 mg allopurinol (Zyloprim) tablet 100 mg 11-10 07:00: 00 Yes 100mg 100 mg, Oral, Every morning, First dose on Fri11/10/24 at 0700 Rakel Huff [facility] tacrolimus (Prograf) capsule 5 mg tacrolimus (Prograf) capsule 5 mg 11-09 21:20: 00 Yes 5mg Q.5D 5 mg, Oral, 2 times daily, First dose on Fri11/09/24 at 2120, Time Critical Medication . Avoid grapefruit and grapefruit juice. Rakel Huff [facility] ticagrelor (Brilinta) tablet 90 mg ticagrelor (Brilinta) tablet 90 mg 11-09 21:00: 00 Yes 90mg Q.5D 90 mg, Oral, Every 12 hours scheduled, First dose on Fri11/09/24 at 2100 Rakel Huff [facility] tamsulosin (Flomax) 24 hr capsule 0.8 mg tamsulosin (Flomax) 24 hr capsule 0.8 mg 11-09 21:00: 00 Yes .8mg 0.8 mg, Oral, Nightly, First dose on Fri11/09/24 at 2100 Rakel Huff [facility] sucralfate (Carafate) tablet 1 g sucralfate (Carafate) tablet 1 g 11-09 21:00: 00 Yes 1g Q.25D 1 g, Oral, 4 times daily, First dose on Fri11/09/24 at 2100 Rakel Huff [facility] pravastatin (Pravachol) tablet 40 mg pravastatin (Pravachol) tablet 40 mg 11-09 21:00: 00 Yes 40mg 40 mg, Oral, Nightly, First dose on Fri11/09/24 at 2100 Rakel Zepeda mirtazapine (Remeron) tablet 7.5 mg mirtazapine (Remeron) tablet 7.5 mg 11-09 21:00: 00 Yes 7.5mg 7.5 mg, Oral, Nightly, First dose on Fri11/09/24 at 2100 Rakel Zepeda sodium chloride (NS) 0.9 % flush 10 [...] dose on Fri11/09/24 at 2100 Rakel Zepeda sodium chloride (NS) 0.9 % flush 10 [...] Fri11/09/24 at 1538, For 1 dose Rakel Huff [facility] phosphorus (K Phos Neutral) tablet 250 mg [...] 1400, For 1 dose Rakel Huff [facility] PREDNISONE 5 mg tablet 10-27 00:00: 00 Yes [id number] 5mg TAKE 1 TABLET BY MOUTH EVERY DAY IN THE MORNING [facility] mycophenola te 250 mg capsule mycophenola te 250 mg capsule 10-21 00:00: 00 Yes 500mg Take 2 capsules by mouth in the morning and 2 capsules in the evening. OR PER TRANSPLANT DOCTOR. Z 94.0 Kidney transplant Generic permitted Indication s: z94.0 kidney transplant [facility] tacrolimus 1 mg capsule tacrolimus 1 mg capsule 10-21 00:00: 00 01-07 00:00 :00 No [id number] 5mg Take 5 capsules by mouth in the morning and 5 capsules in the evening. [facility] furosemide 20 mg tablet 10-21 00:00: 00 12-30 00:00 :00 No [id number] 40mg Take 2 tablets by mouth every morning and evening. [facility] tacrolimus 1 mg capsule 10-04 00:00: 00 10-21 00:00 :00 No [id number] TAKE 5 CAPSULES BY MOUTH EVERY 12 HOURS. (TAKE 5 CAPS IN THE MORNING AND 5 CAPS IN THE EVENING) [facility] minoxidiL 10 mg tablet 09-28 00:00: 00 12-30 00:00 :00 No [id number] TAKE 1/2 TABLET BY MOUTH TWICE A DAY [facility] dupilumab (DUPIXENT PEN) 300 mg/2 mL PnIj [id number] 08-30 00:00: 00 01-07 00:00 :00 No [id number] 300mg inject 1 Pen under the skin every 14 (fourteen) days. [facility] fluticasone propionate 50 mcg/actuati on nasal spray 08-19 00:00: 00 01-07 00:00 :00 No [id number] 1{spray } Use 1 [place] in each nostril in the morning. [facility] calcium carbonate (Os-Iwllie) 1250 (500 Ca) MG tablet calcium carbonate (Os-Willie) 1250 (500 Ca) MG tablet 08-04 00:00: 00 Yes 1{tbl} Take 1 tablet by mouth every morning. Rakel Huff [facility] ergocalcife rol, vitamin d2, 1,250 mcg (50,000 unit) capsule 08-04 00:00: 00 01-07 00:00 :00 No [id number] 70882M Take 1 capsule by mouth weekly. [facility] calcium carbonate (OYSTER SHELL CALCIUM 500) 500 mg calcium (1,250 mg) tablet 08-04 00:00: 00 12-30 00:00 :00 No [id number] 500mg Take 1 tablet by mouth in the morning. [facility] tamsulosin 0.4 mg 24 hr capsule 08-03 00:00: 00 Yes [id number] .8mg Take 2 capsules by mouth at bedtime. [facility] pravastatin 40 mg tablet 08-03 00:00: 00 Yes [id number] 40mg Take 1 tablet by mouth at bedtime. [facility] mirtazapine 7.5 mg tablet 08-03 00:00: 00 Yes [id number] 7.5mg Take 1 tablet by mouth at bedtime. [facility] allopurinoL 100 mg tablet 08-03 00:00: 00 Yes [id number] 100mg Take 1 tablet by mouth in the morning. [facility] amLODIPine 10 mg tablet -08 00:00: 00 Yes [id number] 10mg Take 1 tablet by mouth in the morning. [facility] Magnesium 250 mg Tab -08 00:00: 00 01-07 00:00 :00 No [id number] 1{tbl} Take 1 tablet by mouth in the morning. [facility] sucralfate 1 gram tablet 08-03 00:00: 00 12-30 00:00 :00 No [id number] TAKE 1 TABLET BY MOUTH FOUR TIMES A DAY [facility] lisinopriL 5 mg tablet 08-03 00:00: 00 12-30 00:00 :00 No [id number] 5mg Take 1 tablet by mouth every morning. [facility] labetaloL 200 mg tablet 08-03 00:00: 00 12-30 00:00 :00 No [id number] 400mg Take 2 tablets by mouth every 12 (twelve) hours. [facility] furosemide 20 mg tablet 08 00:00: 00 10-21 00:00 :00 No [id number] 20mg Take 1 tablet by mouth every morning and evening. [facility] EZETIMIBE 10 mg tablet 07 00:00: 00 Yes [id number] 10mg TAKE 1 TABLET BY MOUTH EVERY DAY IN THE MORNING [facility] tacrolimus 1 mg capsule -25 00:00: 00 10-04 00:00 :00 No [id number] TAKE 5 CAPSULES BY MOUTH EVERY 12 HOURS. (TAKE 5 CAPS IN THE MORNING AND 5 CAPS IN THE EVENING) [facility] furosemide 20 mg tablet -18 00:00: 00 08-03 00:00 :00 No [id number] 20mg Take 1 tablet by mouth every morning and evening. [facility] dupilumab (DUPIXENT PEN) 300 mg/2 mL PnIj [id number] -05 00:00: 08-30 00:00 :00 No [id number] 300mg inject 1 Pen under the skin every 14 (fourteen) days [facility] TACROLIMUS 1 mg capsule - 00:00: 00 07-20 00:00 :00 No [id number] TAKE 5 CAPSULES BY MOUTH EVERY 12 HOURS. (TAKE 5 CAPS IN THE MORNING AND 5 CAPS IN THE EVENING) [facility] labetaloL 200 mg tablet 2-12 00:00: 00 08-03 00:00 :00 No [id number] 400mg Take 2 tablets by mouth every 12 (twelve) hours. [facility] ticagrelor 90 mg tablet - 09:33: 50 01-07 00:00 :00 No 90mg Take 1 tablet by mouth in the morning and 1 tablet in the evening. [facility] lisinopriL 5 mg tablet 05-24 00:00: 00 08-03 00:00 :00 No [id number] 5mg TAKE 1 TABLET BY MOUTH EVERY DAY IN THE MORNING [facility] amLODIPine 10 mg tablet - 00:00: 00 08-03 00:00 :00 No 10mg Take 1 tablet by mouth in the morning. [facility] fluticasone propionate 50 mcg/actuati on nasal spray 1- 00:00: 00 08-19 00:00 :00 No [id number] SPRAY 2 SPRAYS INTO EACH NOSTRIL IN THE MORNING [facility] Magnesium 250 mg Tab 1-02 00:00: 00 08-03 00:00 :00 No [id number] 1{tbl} Take 1 tablet by mouth in the morning. [facility] fluticasone propionate 50 mcg/actuati on nasal spray 2023-04 2-23 00:00: 00 05-18 00:00 :00 No [id number] SPRAY 2 SPRAYS INTO EACH NOSTRIL IN THE MORNING [facility] lisinopriL 10 mg tablet 2023-04 2-16 00:00: 00 05-24 00:00 :00 No [id number] 10mg Take 1 tablet by mouth in the morning. [facility] dupilumab (DUPIXENT PEN) 300 mg/2 mL PnIj 2023-04 00:00: 00 06-25 00:00 :00 No [id number] 300mg inject 1 Pen under the skin every 14 (fourteen) days [facility] fluticasone propionate 50 mcg/actuati on nasal spray 2023-04 00:00: 00 04-19 00:00 :00 No [id number] SPRAY 2 SPRAYS INTO EACH NOSTRIL IN THE MORNING [facility] fluticasone propionate 50 mcg/actuati on nasal spray 2023-04 00:00: 00 03-19 00:00 :00 No [id number] SPRAY 2 SPRAYS INTO EACH NOSTRIL IN THE MORNING [facility] ezetimibe 10 mg tablet 01-20 00:00: 00 Yes [id number] 10mg Take 1 tablet by mouth in the morning. [facility] tamsulosin 0.4 mg 24 hr capsule 01-20 00:00: 00 08-03 00:00 :00 No [id number] .8mg Take 2 capsules by mouth at bedtime. [facility] sucralfate 1 gram tablet 01-20 00:00: 00 08-03 00:00 :00 No [id number] TAKE 1 TABLET BY MOUTH FOUR TIMES A DAY [facility] pravastatin 40 mg tablet 01-20 00:00: 00 08-03 00:00 :00 No [id number] 40mg Take 1 tablet by mouth at bedtime. [facility] mirtazapine 7.5 mg tablet 01-20 00:00: 00 08-03 00:00 :00 No [id number] 7.5mg Take 1 tablet by mouth at bedtime. [facility] allopurinoL 100 mg tablet 01-20 00:00: 00 08-03 00:00 :00 No [id number] 100mg Take 1 tablet by mouth in the morning. [facility] fluticasone propionate 50 mcg/actuati on nasal spray 01-20 00:00: 00 02-14 00:00 :00 No [id number] 2{spray } Use 2 Sprays in each nostril in the morning. [facility] labetaloL 200 mg tablet 01-08 00:00: 00 06-09 00:00 :00 No [id number] 400mg Take 2 tablets by mouth every 12 (twelve) hours. [facility] lisinopriL 10 mg tablet 01-04 00:00: 00 04-12 00:00 :00 No [id number] 10mg Take 1 tablet by mouth in the morning. [facility] PRAVASTATIN 40 mg tablet 12-04 00:00: 00 01-20 00:00 :00 No [id number] 40mg TAKE 1 TABLET BY MOUTH EVERYDAY AT BEDTIME [facility] FUROSEMIDE 20 mg tablet 12-02 00:00: 00 Yes [id number] 20mg TAKE 1 TABLET BY MOUTH EVERY MORNING AND EVENING. [facility] labetaloL 200 mg tablet 11-16 00:00: 00 Yes [id number] 400mg Take 2 tablets by mouth every 12 (twelve) hours. [facility] mycophenola te 250 mg capsule 10-15 00:00: 00 10-21 00:00 :00 No 500mg Take 2 capsules by mouth every 12 (twelve) hours. OR PER TRANSPLANT DOCTOR. Z 94.0 Kidney transplant Generic permitted Indication s: z94.0 kidney transplant [facility] furosemide 20 mg tablet 10-15 00:00: 00 12-02 00:00 :00 No [id number] 20mg Take 1 tablet by mouth every morning and evening. [facility] furosemide 20 mg tablet 6-11 00:00: 00 10-15 00:00 :00 No [id number] 20mg Take 1 tablet by mouth in the morning. [facility] minoxidiL 10 mg tablet 09-22 00:00: 00 09-28 00:00 :00 No [id number] TAKE 1/2 TABLET BY MOUTH TWICE A DAY [facility] furosemide 20 mg tablet 14 00:00: 00 10-06 00:00 :00 No [id number] 20mg Take 1 tablet by mouth as needed (swelling) . [facility] PREDNISONE 5 mg tablet 08-27 00:00: 10-27 00:00 :00 No [id number] 5mg TAKE 1 TABLET BY MOUTH EVERY DAY IN THE MORNING [facility] TAMSULOSIN 0.4 mg 24 hr capsule 08-27 00:00: 00 01-20 00:00 :00 No [id number] .8mg TAKE 2 CAPSULES BY MOUTH AT BEDTIME [facility] pravastatin 40 mg tablet 08-27 00:00: 00 12-04 00:00 :00 No [id number] 40mg TAKE 1 TABLET BY MOUTH EVERYDAY AT BEDTIME [facility] triamcinolo ne acetonide 0.1 % cream 08-20 00:00: 00 05-26 00:00 :00 No [id number] Apply to area(s) 2 (two) times daily. [facility] dupilumab (DUPIXENT PEN) 300 mg/2 mL PnIj 08-20 00:00: 00 03-13 05:59 :00 No [id number] 300mg inject 1 Pen under the skin every 14 (fourteen) days [facility] dupilumab (DUPIXENT PEN) 300 mg/2 mL PnIj 08-20 00:00: 00 09-03 04:59 :00 No [id number] 600mg inject 2 Pens under the skin once now for 1 dose. [facility] digoxin 125 mcg tablet 3-21 00:00: 00 08-16 04:59 :00 No [id number] .125mg Take 1 tablet by mouth in the morning for 30 days. [facility] aspirin 81 mg chewable tablet 07-15 00:00: 00 07-16 04:59 :00 No [id number] 81mg Take 1 tablet by mouth in the morning. [facility] labetaloL 200 mg tablet 07-15 00:00: 00 09-14 04:59 :00 No [id number] 400mg Take 2 tablets by mouth every 12 (twelve) hours for 60 days. [facility] lisinopriL 5 mg tablet 07-15 00:00: 00 09-14 04:59 :00 No [id number] 5mg Take 1 tablet by mouth in the morning for 60 days. [facility] ferrous sulfate 325 mg (65 mg iron) tablet 07-15 00:00: 00 08-15 04:59 :00 No [id number] 325mg Take 1 tablet by mouth every Friday, Friday and Friday for 30 days. [facility] acetaminoph en 325 mg tablet 07-15 00:00: 00 08-06 04:59 :00 No [id number] 650mg Take 2 tablets by mouth every 6 (six) hours as needed for Pain (scale 1-3) for up to 21 days. [facility] gabapentin 100 mg capsule 07-15 00:00: 00 08-06 04:59 :00 No [id number] 100mg Take 1 capsule by mouth in the morning and 1 capsule at noon and 1 capsule in the evening. Do all this for 21 days. [facility] methocarbam oL 500 mg tablet 07-15 00:00: 00 07-30 04:59 :00 No [id number] 500mg Take 1 tablet by mouth 4 (four) times daily for 14 days. [facility] acetaminoph en-codeine 300-15 mg tablet 07-15 00:00: 00 07-23 04:59 :00 No [id number] 1{tbl} Take 1 tablet by mouth every 4 (four) hours as needed for Pain (Pain 7-10) for up to 7 days. Indication s: acute pain [facility] furosemide 20 mg tablet 07-15 00:00: 00 07-21 04:59 :00 No [id number] 20mg Take 1 tablet by mouth every morning and evening for 5 days. [facility] spironolact one 25 mg tablet 07-15 00:00: 00 07-21 04:59 :00 No [id number] 25mg Take 1 tablet by mouth in the morning for 5 days. [facility] ferrous sulfate tablet 325 mg 07-13 14:00: 00 Yes 325mg 325 mg, Oral, QMON// FRI, First dose on Fri07/14/23 at 0900, Until Discontinu ed, Routine [facility] digoxin (LANOXIN) tablet 125 mcg 07-11 14:00: 00 08-10 13:59 :00 No 125ug 125 mcg, Oral, DAILY, 30 doses, First dose on Fri07/12/23 at 0900, Last dose on 08/10/23 at 0900, Routine [facility] digoxin (LANOXIN) injection 500 mcg 07-11 02:00: 00 07-11 01:52 :00 No 500ug 500 mcg, Intravenou s, ONCE NOW, 1 dose, On Fri07/11/23 at 2100, Routine [facility] ondansetron (ZOFRAN (PF)) injection 4 mg 07-10 18:07: 07 Yes 4mg 4 mg, Slow IV Push, Q6HPRN, Starting on Fri07/11/23 at 1307, Until Discontinu ed, Routine, Nausea and Vomiting (N/V) [facility] sodium phosphates (READY-TO-U SE ENEMA) 19-7 gram/118 mL enema 1 Enema 07-10 18:07: 06 Yes 1{enema } 1 Enema, Rectal, PRN - SEE INSTRUCTIO NS, 1 dose, Starting on Fri07/11/23 at 1307, Until Discontinu ed, Routine, Constipati on, For bowel movemnet [facility] bisacodyL (DULCOLAX) suppository 10 mg 07-10 18:07: 06 Yes 10mg 10 mg, Rectal, PRN - SEE INSTRUCTIO NS, 1 dose, Starting on Fri07/11/23 at 1307, Until Discontinu ed, Routine, Constipati on, For bowel movent [facility] acetaminoph en (TYLENOL) tablet 650 mg 07-10 18:07: 06 Yes 650mg 650 mg, Oral, Q6HPRN, Starting on Fri07/11/23 at 1307, Until Discontinu ed, Routine, Temp > 38 C [facility] acetaminoph en-codeine (TYLENOL #3) 300-30 mg tablet 2 tablet 07-10 18:07: 06 Yes 2{tbl} 2 tablet, Oral, Q4HPRN, Starting on Fri07/11/23 at 1307, Until Discontinu ed, Routine, Pain (scale 7-10) [facility] spironolact one (ALDACTONE) tablet 25 mg 07-10 14:00: 00 Yes 25mg 25 mg, Oral, DAILY, First dose on Fri07/11/23 at 0900, Until Discontinu ed, Routine [facility] gabapentin (NEURONTIN) capsule 100 mg 07-09 19:00: 00 Yes 100mg 100 mg, Oral, TID, First dose (after last modificati on) on Fri07/10/23 at 1400, Until Discontinu ed, Routine [facility] methocarbam oL (ROBAXIN) injection 1,000 mg 07-09 19:00: 00 Yes 1000mg 1,000 mg, Slow IV Push, Q8H, First dose (after last modificati on) on Fri07/10/23 at 1400, Until Discontinu ed, Administer over 3-5 Minutes [facility] lisinopriL (PRINIVIL,Z ESTRIL) tablet 10 mg 07-09 14:00: 00 Yes 10mg 10 mg, Oral, DAILY, First dose on Fri07/10/23 at 0900, Until Discontinu ed, Routine [facility] furosemide (LASIX) tablet 20 mg 07-09 14:00: 00 Yes 20mg 20 mg, Oral, QAM+PM, First dose on Fri07/10/23 at 0900, Until Discontinu ed, Routine [facility] labetaloL (NORMODYNE) tablet 400 mg 07-09 13:00: 00 Yes 400mg 400 mg, Oral, Q12H, First dose (after last modificati on) on Fri07/10/23 at 0800, Until Discontinu ed, Routine [facility] acetaminoph en-codeine (TYLENOL #2) 300-15 mg tablet 2 tablet 07-09 12:41: 49 Yes 2{tbl} 2 tablet, Oral, Q4HPRN, Starting on Fri07/10/23 at 0741, Until Discontinu ed, Routine, Pain (scale 4-6) [facility] acetaminoph en-codeine (TYLENOL #2) 300-15 mg tablet 1 tablet 07-09 12:41: 02 Yes 1{tbl} 1 tablet, Oral, Q4HPRN, Starting on Fri07/10/23 at 0741, Until Discontinu ed, Routine, Pain (scale 1-3) [facility] lactated ringers IV infusion 1,000 mL 07-09 10:45: 00 07-14 20:58 :57 No 1000mL at 50 mL/hr, 1,000 mL, IV Infusion, CONTINUOUS , Starting on Fri07/10/23 at 0545, Until Fri07/15/23 at 1558, Routine [facility] HYDROcodone -acetaminop hen (NORCO) 10-325 mg tablet 1 tablet 07-09 09:38: 06 07-09 11:55 :00 No 1{tbl} 1 tablet, Oral, Q6HPRN, 1 dose, Starting on Fri07/10/23 at 0438, Until Discontinu ed, Routine, Pain (scale 4-6) [facility] FENTanyl 1000 mcg/100 mL 0.9% NaCl BLOCK SAWYER 07-09 01:30: 00 07-09 19:54 :43 No Patient Bolus Dose: 20 mcg
Loc kout Interval: 7 Minutes
Basal Rate: 0 mcg/hr
Four Hour Dose Limit: 250 mcg
IV Infusion, 100 mL, CONTINUOUS , Starting on Fri07/09/23 at 2030, Until Fri07/10/23 at 1454 [facility] mycophenola te (CELLCEPT) capsule 250 mg 07-09 01:00: 00 Yes 250mg 250 mg, Oral, Q12H, First dose (after last modificati on) on Fri07/09/23 at 2000, Until Discontinu ed, Routine [facility] HYDROcodone -acetaminop hen (NORCO) 10-325 mg tablet 1 tablet 07-08 22:36: 08 07-09 05:23 :00 No 1{tbl} 1 tablet, Oral, Q6HPRN, 2 doses, Starting on Fri07/09/23 at 1736, Until Discontinu ed, Routine, Pain (scale 4-6) [facility] labetaloL (NORMODYNE) tablet 100 mg 07-08 20:30: 00 07-09 12:15 :35 No 100mg 100 mg, Oral, Q12H, First dose (after last modificati on) on Fri07/09/23 at 1530, Until Discontinu ed, Routine [facility] acetaminoph en (TYLENOL) tablet 650 mg 07-08 17:00: 00 Yes 650mg 650 mg, Oral, Q6H, First dose (after last modificati on) on Fri07/09/23 at 1200, Until Discontinu ed, NAKUL [facility] furosemide (LASIX) injection 40 mg 07-08 16:00: 00 07-08 17:36 :00 No 40mg 40 mg, Slow IV Push, ONCE, 1 dose, On Fri07/09/23 at 1100, Routine [facility] sodium phosphate 15 mmol in NaCl 0.9% (NS) 250 mL piggyback 07-08 15:00: 00 07-08 19:19 :00 No 15mmol 15 mmol, IV Piggyback, ONCE, 1 dose, On Fri07/09/23 at 1000, Administer over 4 Hours, 250 mL [facility] sennosides (SENOKOT) tablet 8.6 mg 07-08 14:00: 00 Yes 8.6mg 8.6 mg, Oral, DAILY, First dose on Fri07/09/23 at 0900, Until Discontinu ed, Routine [facility] docusate (COLACE) capsule 100 mg 07-08 14:00: 00 Yes 100mg 100 mg, Oral, DAILY, First dose on Fri07/09/23 at 0900, Until Discontinu ed, Routine [facility] heparin (porcine) injection 5,000 Units 07-08 13:00: 00 Yes 5000U 5,000 Units, Subcutaneo us, Q12H, First dose on Fri07/09/23 at 0800, Until Discontinu ed, Routine [facility] propofoL IV infusion 07-08 [...] be discarded after 12 hours
[facility] thrombin (recombinan t) (RECOTHROM) topical solution 07-08 02:03: 00 07-08 02:27 :25 No PRN, Starting on Fri07/08/23 at 2102, Until Fri07/08/23 at 2126, Routine, Intra-op [facility] albumin (ALBUTEIN 5 %) 5 % [...] period without an adequate hemodynami c response. [facility] heparin 1,000 unit/mL 30,000 Units in NaCl 0.9% (NS) 1,000 mL OR irrigation 07-08 00:44: 00 07-08 02:27 :25 No PRN, Starting on Fri07/08/23 at 194, Intra-op [facility] FENTanyl PF (SUBLIMAZE (PF)) injection 50 mcg 07-08 00:30: 00 07-07 23:47 :00 No 50ug 50 mcg, Slow IV Push, ONCE, 1 dose, On Fri07/08/23 at 1930, Routine [facility] dexMEDEtomi dine 200 mcg in 0.9 [...] at maximum allowed dose, contact prescriber .
[facility] niCARdipine (CARDENE I.V.) 40 [...] at maximum allowed dose, contact prescriber .
[facility] aspirin chewable tablet 81 mg 07-07 23:30: 00 Yes 81mg 81 mg, Oral, DAILY, First dose on Fri07/08/23 at 1830, Until Discontinu ed, Routine [facility] protamine 25 mg in [...] unfraction ated heparin (max dose 50 mg). [facility] Sliding Scale Insulin - Lispro (HUMALOG) 07-07 21:00: 00 Yes Subcutaneo us, Q4H, First dose on Fri07/08/23 at 1600, Until Discontinu ed, Routine [facility] albumin (ALBUTEIN 5 %) [...] period without an adequate hemodynami c response. [facility] D5W-LR IV infusion 1,000 mL 07-07 19:15: 00 07-09 09:31 :04 No 1000mL at 50 mL/hr, IV Infusion, CONTINUOUS , Starting on Fri07/08/23 at 1415, Until Peg 07/10/23 at 0431, NAKUL [facility] furosemide (LASIX) injection 20 mg 07-07 19:09: 15 Yes 20mg 20 mg, IV Push, PRN, 2 doses, Starting on Fri07/08/23 at 1409, Until Discontinu ed, NAKUL, Pressure Maintenanc e [facility] NaCl 0.9% (NS) bolus infusion 250 mL 07-07 19:09: 15 Yes 250mL at 999 mL/hr, 250 mL, IV Infusion, PRN - SEE INSTRUCTIO NS, 3 doses, Starting on Fri07/08/23 at 1409, Until Discontinu ed, NAKUL [facility] dextrose 10% (D10W) bolus [...] blood glucose is < 80 mg/dL, repeat.
[facility] glucagon (GLUCAGEN DIAGNOSTIC KIT) injection 1 mg 07-07 19:09: 15 Yes 1mg 1 mg, Intramuscu lar, PRN, Starting on Fri07/08/23 at 1409, Until Discontinu ed, NAKUL, Blood Glucose < or = 70 mg/dL and patient is NPO, unable to swallow or has mental changes. [facility] dextrose 50 % in water (D50W) injection 25 mL 07-07 19:09: 15 Yes 25mL 25 mL, Slow IV Push, PRN, Starting on Fri07/08/23 at 1409, Until Discontinu ed, NAKUL, Blood Glucose < or = 70 mg/dL and patient is NPO, unable to swallow or has mental status changes. [facility] NORepinephr ine 4 mg [...] at maximum allowed dose, contact prescriber .
[facility] naloxone (NARCAN) injection 0.4 mg 07-07 19:09: 15 Yes .4mg 0.4 mg, Slow IV Push, PRN, Starting on Fri07/08/23 at 1409, Until Discontinu ed, Routine, Sedation/R espiratory Depression [facility] propofoL IV infusion 07-07 [...] vials should be discarded after 12 hours
[facility] heparin 1,000 unit/mL 2,500 Units, papaverine 60 mg in NaCl 0.9% (NS) 100 mL OR irrigation 07-07 12:52: 00 07-07 19:08 :14 No PRN, Starting on Fri07/08/23 at 0752, Intra-op [facility] heparin 1,000 unit/mL 5,000 Units, papaverine 60 mg in NaCl 0.9% (NS) 500 mL OR irrigation 07-07 12:51: 00 07-07 19:08 :14 No PRN, Starting on Fri07/08/23 at 0751, Intra-op [facility] heparin 1,000 unit/mL 30,000 Units in NaCl 0.9% (NS) 1,000 mL OR irrigation 07-07 12:51: 00 07-07 19:08 :14 No PRN, Starting on Fri07/08/23 at 0751, Intra-op [facility] ceFAZolin (ANCEF) 1 g in NaCl 0.9% (NS) 1,000 mL OR irrigation 07-07 12:51: 00 07-07 19:08 :14 No PRN, Starting on Fri07/08/23 at 0751, Intra-op [facility] thrombin (recombinan t) (RECOTHROM) topical solution 07-07 12:50: 00 07-07 19:08 :14 No PRN, Starting on Fri07/08/23 at 0750, Until Fri07/08/23 at 1408, Routine, Intra-op [facility] metoprolol tartrate (LOPRESSOR) tablet 25 mg 07-07 10:00: 00 07-07 21:59 :00 No 25mg 25 mg, Oral, ONCE, 1 dose, On Fri07/08/23 at 0500, Routine [facility] magnesium sulfate in water 4 gram/50 mL (8 %) IV Piggyback 4 g 07-07 06:00: 00 07-07 07:43 :00 No 4g 4 g, IV Piggyback, at 25 mL/hr Administer over 120 Minutes, ONCE, 1 dose, On Fri07/08/23 at 0100, [facility] phosphates (READY-TO-U SE ENEMA) 19-7 gram/118 mL enema 1 Enema 07-07 02:00: 00 07-07 13:59 :00 No 1{enema } 1 Enema, Rectal, ONCE, 1 dose, On Fri07/07/23 at 2100, Routine [facility] bisacodyL (DULCOLAX) suppository 10 mg 07-07 00:00: 00 07-07 11:59 :00 No 10mg 10 mg, Rectal, ONCE, 1 dose, On Fri07/07/23 at 1900, Routine [facility] hydrALAZINE (APRESOLINE ) tablet 10 mg 07-06 16:30: 41 Yes 10mg 10 mg, Oral, Q6HPRN, Starting on Fri07/07/23 at 1130, Until Discontinu ed, Routine, Hypertensi on [facility] magnesium sulfate in water 4 gram/50 mL (8 %) IV Piggyback 4 g 07-06 13:15: 00 07-06 16:46 :00 No 4g 4 g, IV Piggyback, at 25 mL/hr Administer over 120 Minutes, ONCE, 1 dose, On Fri07/07/23 at 0815, Routine [facility] chlorhexidi ne (WESLEY-HEX) 4 % liquid 07-06 12:15: 00 07-06 12:15 :00 No Topical, ONCE, 1 dose, On Fri07/07/23 at 0715, Routine [facility] iodixanol (VISIPAQUE 320-100 mL) injection 07-03 22:39: 33 07-03 22:59 :18 No ONCE INTRA PROCEDURE, Starting on Fri07/04/23 at 1639, Until Fri07/04/23 at 1659, Routine, CV Intraproce dure [facility] nitroglycer in (TRIDIL) 2 mg in 10 mL D5W for Cardiac Cath 07-03 22:30: 07 07-03 22:59 :18 No ONCE INTRA PROCEDURE, Starting on Fri07/04/23 at 1630, Until Fri07/04/23 at 1659, Routine, CV Intraproce dure [facility] NaCl 0.9% (NS) bolus infusion 07-03 22:25: 00 07-03 22:59 :17 No CONTINUOUS PRN, Starting on Fri07/04/23 at 1625, Until Fri07/04/23 at 1659, STAT, CV Intraproce dure [facility] lidocaine 1% (PF) (XYLOCAINE) injection 07-03 22:06: 36 07-03 22:59 :18 No ONCE INTRA PROCEDURE, Starting on Fri07/04/23 at 1606, Until Fri07/04/23 at 1659, Routine, CV Intraproce dure [facility] FENTanyl PF (SUBLIMAZE (PF)) injection 07-03 21:47: 15 07-03 22:59 :18 No ONCE INTRA PROCEDURE, Starting on Fri07/04/23 at 1547, Until Fri07/04/23 at 1659, Routine, CV Intraproce dure [facility] midazolam (VERSED) injection 07-03 21:47: 10 07-03 22:59 :18 No ONCE INTRA PROCEDURE, Starting on Fri07/04/23 at 1547, Until Fri07/04/23 at 165, Routine, CV Intraproce dure [facility] NaCl 0.9% (NS) IV infusion 500 mL 07-03 10:00: 00 07-03 08:56 :57 No 500mL at 75 mL/hr, IV Infusion, ONCE, 1 dose, On Fri07/04/23 at 0400, Routine [facility] mirtazapine (REMERON) tablet 7.5 mg 07-03 03:00: 00 Yes 7.5mg 7.5 mg, Oral, QHS, First dose on Peg 07/03/23 at 2100, Until Discontinu ed, Routine [facility] atorvastati n (LIPITOR) tablet 40 mg 07-03 03:00: 00 Yes 40mg 40 mg, Oral, QHS, First dose on Fri07/03/23 at 2100, Until Discontinu ed, Routine [facility] tamsulosin (FLOMAX) capsule 0.8 mg 07-03 03:00: 00 Yes .8mg 0.8 mg, Oral, QHS, First dose on Fri07/03/23 at 2100, Until Discontinu ed, Routine [facility] tacrolimus (PROGRAF) capsule 5 mg 07-03 02:00: 00 Yes 5mg 5 mg, Oral, Q12H, First dose on Fri07/03/23 at 2000, Until Discontinu ed, Routine
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 Restricted medication : NAOMIE BUCKNER [facility] sulfur hexafluorid e microsphr (LUMASON) injection 5 mL 07-02 17:00: 00 07-02 17:00 :00 No [id number] 5mL 5 mL, Intravenou s, ONCE, 1 dose, On Fri07/03/23 at 1100, Routine [facility] isosorbide mononitrate (IMDUR) 24 hr tablet 30 mg 07-02 16:45: 00 07-06 12:15 :27 No 30mg 30 mg, Oral, DAILY, First dose on Fri07/03/23 at 1045, Until Discontinu ed, Routine [facility] aspirin chewable tablet 81 mg 07-02 15:00: 00 Yes 81mg 81 mg, Oral, DAILY, First dose on Fri07/03/23 at 0900, Until Discontinu ed, Routine [facility] sennosides- docusate sodium (SENOKOT-S) 8.6-50 mg per tablet 1 tablet 07-02 15:00: 00 Yes 1{tbl} 1 tablet, Oral, DAILY, First dose on Fri07/03/23 at 0900, Until Discontinu ed, Routine [facility] predniSONE (DELTASONE) tablet 5 mg 07-02 15:00: 00 Yes 5mg 5 mg, Oral, DAILY, First dose on Fri07/03/23 at 0900, Until Discontinu ed, [facility] pantop[facility] (PROTONIX) EC tablet 40 mg 07-02 15:00: 00 Yes 40mg 40 mg, Oral, DAILY, First dose on Fri07/03/23 at 0900, Until Discontinu ed [facility] fluticasone propionate 50 mcg/actuati on nasal spray 2 [place] 07-02 15:00: 00 Yes 2{spray } 2 [place], Nasal, DAILY, First dose on Peg 07/03/23 at 0900, Until Discontinu ed, Routine [facility] ezetimibe (ZETIA) tablet 10 mg 07-02 15:00: 00 Yes 10mg 10 mg, Oral, DAILY, First dose on Peg 07/03/23 at 0900, Until Discontinu ed, Routine [facility] allopurinoL (ZYLOPRIM) tablet 100 mg 07-02 15:00: 00 Yes 100mg 100 mg, Oral, DAILY, First dose on Peg 07/03/23 at 0900, Until Discontinu ed, Routine [facility] lisinopriL (PRINIVIL,Z ESTRIL) tablet 10 mg 07-02 15:00: 00 07-06 12:15 :27 No 10mg 10 mg, Oral, DAILY, First dose on Peg 07/03/23 at 0900, Until Discontinu ed, Routine [facility] sucralfate (CARAFATE) tablet 1 g 07-02 14:00: 00 Yes 1g 1 g, Oral, QID, First dose on Fri07/03/23 at 0800, Until Discontinu ed, Routine [facility] mycophenola te (CELLCEPT) capsule 500 mg 07-02 14:00: 00 Yes 500mg 500 mg, Oral, Q12H, First dose on Peg 07/03/23 at 0800, Until Discontinu ed, Routine [facility] fluticasone propionate (FLOVENT HFA) 220 mcg/actuati on inhaler 1 Puff 07-02 14:00: 00 Yes 1{puff} 1 Puff, Inhalation , Q12H, First dose on Peg 07/03/23 at 0800, Until Discontinu ed, Routine
Is this order for a patient with suspected or confirmed COVID-19 infection? No [facility] minoxidiL (LONITEN) tablet 5 mg 07-02 14:00: 00 07-06 15:18 :50 No 5mg 5 mg, Oral, BID, First dose on Peg 07/03/23 at 0800, Until Discontinu ed, Routine [facility] labetaloL (NORMODYNE) tablet 400 mg 07-02 14:00: 00 07-06 12:15 :27 No 400mg 400 mg, Oral, Q12H, First dose on Peg 07/03/23 at 0800, Until Discontinu ed, Routine [facility] KCL (KLOR-CON M20) tablet 40 mEq 07-02 13:45: 00 07-02 15:22 :00 No 40meq 40 mEq, Oral, ONCE, 1 dose, On Peg 07/03/23 at 0745, Routine [facility] magnesium sulfate in water 4 gram/50 mL (8 %) IV Piggyback 4 g 07-02 12:57: 00 07-02 17:15 :00 No 4g 4 g, IV Piggyback, at 25 mL/hr Administer over 120 Minutes, ONCE, 1 dose, On Peg 07/03/23 at 0700, Routine [facility] KCL (KLOR-CON M20) tablet 40 mEq 07-02 12:00: 00 07-02 11:21 :00 No 40meq 40 mEq, Oral, ONCE, 1 dose, On Peg 07/03/23 at 0600, Routine [facility] furosemide (LASIX) tablet 40 mg 07-02 06:16: 00 07-02 06:32 :00 No 40mg 40 mg, Oral, ONCE, 1 dose, On Peg 07/03/23 at 0030, Routine [facility] furosemide (LASIX) tablet 20 mg 07-02 05:57: 31 07-06 12:15 :27 No 20mg 20 mg, Oral, BIDPRN, Starting on Fri07/02/23 at 2357, Until Fri07/07/23 at 0715, Routine, swelling [facility] triamcinolo ne acetonide (TRIDERM) 0.1 % cream 07-02 05:48: 02 Yes Topical, BIDPRN, Starting on Fri07/02/23 at 2348, Until Discontinu ed, Routine, Dermatitis /Rash [facility] nitroglycer in (NITROSTAT) sublingual tablet 0.4 mg 07-02 05:47: 04 Yes .4mg 0.4 mg, Sublingual , Q5MIN PRN, Starting on Fri07/02/23 at 2347, Until Discontinu ed, Routine, Chest pain [facility] docusate (COLACE) capsule 100 mg 07-02 05:45: 29 Yes 100mg 100 mg, Oral, QDAILYPRN, Starting on Fri07/02/23 at 2345, Until Discontinu ed, Routine, Constipati on [facility] acetaminoph en (TYLENOL) tablet 650 mg 07-02 05:42: 43 Yes 650mg 650 mg, Oral, Q6HPRN, Starting on Fri07/02/23 at 2342, Until Discontinu ed, Routine, Pain (scale 1-3) [facility] aspirin tablet 325 mg 07-02 03:00: 00 07-02 01:59 :00 No 325mg 325 mg, Oral, ONCE, 1 dose, On Fri07/02/23 at 2100, STAT [facility] HEPARIN SODIUM (PORCINE) 1,000 UNIT/ML BOLUS ACS ORDER SET 07-02 02:45: 00 07-02 02:50 :00 No 4000U 4,000 Units, IV Push, ONCE, 1 dose, On Fri07/02/23 at 204, NAKUL [facility] heparin 25,000 Units/250 mL [...] Rang e, Dosing and Testing: &nbs p;[facility] &nbs p; - aPTT < 35: [...] OR INITIAL INFUSION RATE.
[facility] heparin (1,000 unit/mL, 10 mL vial) for Rebolusing 07-02 02:41: 18 Yes 3000U FOR REBOLUSING , Starting on Fri07/02/23 at 2040, Until Discontinu ed, Routine
Dosing based on aPPT testing parameters (refer to continuous heparin drip order).
[facility] (NITROL) 2 % ointment 0.5 Inch 07-02 02:00: 00 07-02 02:00 :00 No .5[in_u s] 0.5 Inch, Transderma l (Apply To Skin), ONCE, 1 dose, On Fri07/02/23 at 2000, NAKUL [facility] fluorescein (FLUORESCIT E) 500 mg/5 mL (10 %) injection 5 mL 05-26 19:26: 00 05-26 19:26 :00 No [id number] 5mL 5 mL, Intravenou s, ONCE PRN, 1 dose, Starting on Fri05/26/23 at 1326, Until Fri05/26/23 at 1326, Routine [facility] tacrolimus (PROGRAF) 1 mg capsule 05-26 00:00: 00 06-24 00:00 :00 No [id number] 5mg Take 5 capsules by mouth every 12 (twelve) hours. Take 5 tablets in the morning and 5 tablets in the evening Diagnosis: Z 94.0 generic permitted [facility] lisinopriL 5 mg tablet 05-26 00:00: 00 07-15 00:00 :00 No [id number] 10mg Take 2 tablets by mouth in the morning. [facility] bevacizumab (AVASTIN) injection 1.25 mg 05-02 16:46: 00 05-02 16:46 :00 No [id number] 1.25mg 1.25 mg, Intravitre al, ONCE PRN, 1 dose, Starting on Fri05/02/23 at 1046, Until Fri05/02/23 at 1046, Routine [facility] labetaloL 100 mg tablet 2022-04 00:00: 00 07-15 00:00 :00 No [id number] Take 300mg and 100mg together for a total of 400mg BID [facility] labetaloL 300 mg tablet 2022-04 00:00: 00 07-15 00:00 :00 No [id number] Take 300mg and 100mg together for a total of 400mg BID [facility] bevacizumab (AVASTIN) injection 1.25 mg 2022-04 17:27: 00 03-28 17:27 :00 No [id number] 1.25mg 1.25 mg, Intravitre al, ONCE PRN, 1 dose, Starting on Fri03/28/23 at 1127, Until Fri03/28/23 at 1127, Routine [facility] sucralfate 1 gram tablet 2022-04 00:00: 00 01-20 00:00 :00 No [id number] TAKE 1 TABLET BY MOUTH FOUR TIMES A DAY [facility] valGANciclo vir 450 mg tablet 2022-04 00:00: 00 01-04 00:00 :00 No 450mg Take 1 tablet by mouth in the morning. [facility] bevacizumab (AVASTIN) injection 1.25 mg 2022-04 16:26: 00 02-24 16:26 :00 No [id number] 1.25mg 1.25 mg, Intravitre al, ONCE PRN, 1 dose, Starting on Fri02/24/23 at 1126, Until Fri02/24/23 at 1126, Routine [facility] mirtazapine 7.5 mg tablet 2022-04 00:00: 00 01-20 00:00 :00 No [id number] 7.5mg Take 1 tablet by mouth at bedtime. [facility] nitroglycer in 0.4 mg sublingual tablet 2022-04 00:00: 00 07-15 00:00 :[id number] 1 TABLET UNDER THE TONGUE EVERY 5 MINUTES NEEDED FOR CHEST PAIN FOR 3 DOSES. IF NO RELIEF, CALL 911. [facility] lisinopriL 5 mg tablet 2022-04 00:00: 00 05-26 00:00 :00 No [id number] 5mg Take 1 tablet by mouth in the morning. [facility] cephALEXin (KEFLEX) 500 mg capsule 2022-04 00:00: 00 03-02 04:59 :00 No [id number] 500mg Take 1 capsule by mouth in the morning and 1 capsule at noon and 1 capsule in the evening. Do all this for 10 days. [facility] fluticasone propionate 50 mcg/actuati on nasal spray 01-19 00:00: 00 01-20 00:00 :00 No [id number] 2{spray } Use 2 Sprays in each nostril in the morning. [facility] omeprazole 40 mg capsule 01-13 00:00: 00 01-20 00:00 :00 No [id number] 40mg Take 1 capsule by mouth in the morning. [facility] ezetimibe 10 mg tablet 01-13 00:00: 00 01-20 00:00 :00 No [id number] 10mg Take 1 tablet by mouth in the morning. [facility] allopurinoL 100 mg tablet 01-13 00:00: 00 01-20 00:00 :00 No [id number] 100mg Take 1 tablet by mouth in the morning. [facility] fluticasone propionate 220 mcg/actuati on inhaler 01-13 00:00: 00 01-20 00:00 :00 No [id number] INHALE 1 PUFF BY MOUTH EVERY 12 (TWELVE) HOURS. RINSE MOUTH AFTER EACH USE. [facility] labetaloL 200 mg tablet 01-13 00:00: 00 04-27 00:00 :00 No [id number] 400mg Take 2 tablets by mouth every 12 (twelve) hours. [facility] fluticasone propionate 50 mcg/actuati on nasal spray 01-13 00:00: 00 01-19 00:00 :00 No [id number] 2{spray } Use 2 Sprays in each nostril in the morning. [facility] triamcinolo ne acetonide 0.1 % cream 12-23 00:00: 00 01-07 00:00 :00 No [id number] Apply to area(s) 2 (two) times daily as needed for Dermatitis /Rash. [facility] dupilumab (DUPIXENT PEN) 300 mg/2 mL PnIj 12-23 00:00: 00 01-04 00:00 :00 No [id number] 300mg inject 1 Pen under the skin every 2 (two) weeks. [facility] fluticasone propionate 220 mcg/actuati on inhaler 11-11 00:00: 00 01-13 00:00 :00 No [id number] INHALE 1 PUFF BY MOUTH EVERY 12 (TWELVE) HOURS. RINSE MOUTH AFTER EACH USE. [facility] minoxidiL 10 mg tablet 09-20 00:00: 00 09-22 00:00 :00 No [id number] TAKE 0.5 TABLETS BY MOUTH 2 TIMES DAILY. [facility] labetaloL 200 mg tablet 09-03 00:00: 00 01-13 00:00 :00 No [id number] 400mg Take 2 tablets by mouth every 12 (twelve) hours. Please keep follow up for refills [facility] tacrolimus (PROGRAF) 1 mg capsule 08-26 00:00: 00 Yes [id number] Take 5 tablets in the morning and 4 tablets in the evening Diagnosis: Z 94.0 generic permitted [facility] mycophenola te 250 mg capsule 5- 00:00: 00 10-15 00:00 :00 No 500mg Take 2 capsules by mouth every 12 (twelve) hours. OR PER TRANSPLANT DOCTOR. Z 94.0 Kidney transplant Generic permitted Indication s: z94.0 kidney transplant [facility] predniSONE 5 mg tablet 5- 00:00: 00 08-27 00:00 :00 No [id number] 5mg Take 1 tablet by mouth in the morning. [facility] tacrolimus (PROGRAF) 1 mg capsule 0 5- 00:00: 00 05-26 00:00 :00 No [id number] Take 5 tablets in the morning and 4 tablets in the evening Diagnosis: Z 94.0 generic permitted [facility] mycophenola te 250 mg capsule 4-11 00:00: 00 08-26 00:00 :00 No 500mg Take 2 capsules by mouth every 12 (twelve) hours. OR PER TRANSPLANT DOCTOR. Z 94.0 Kidney transplant Generic permitted Indication s: z94.0 kidney transplant [facility] fluticasone propionate 50 mcg/actuati on nasal spray 08-05 00:00: 01-13 00:00 :00 No [id number] 2{spray } Use 2 Sprays in each nostril in the morning. [facility] pravastatin 40 mg tablet 07-30 00:00: 00 08-27 00:00 :00 No [id number] 40mg Take 1 tablet by mouth at bedtime. [facility] nitroglycer in 0.4 mg sublingual tablet 07-30 00:00: 00 02-19 00:00 :[id number] 1 TABLET UNDER THE TONGUE EVERY 5 MINUTES NEEDED FOR CHEST PAIN FOR 3 DOSES. IF NO RELIEF, CALL 911. [facility] fluticasone propionate (FLOVENT HFA) 220 mcg/actuati on inhaler 07-30 00:00: 00 11-11 00:00 :00 No [id number] INHALE 1 PUFF EVERY 12 (TWELVE) HOURS. Rinse mouth after each use. [facility] fluticasone propionate 50 mcg/actuati on nasal spray 07-30 00:00: 00 08-05 00:00 :00 No [id number] 2{spray } Use 2 Sprays in each nostril in the morning. [facility] MINOXIDIL 10 mg tablet 07-25 00:00: 00 09-20 00:00 :00 No [id number] TAKE 0.5 TABLETS BY MOUTH 2 TIMES DAILY. [facility] fluocinonid e 0.05 % cream 07-23 00:00: 00 01-07 00:00 :00 No [id number] Apply to area(s) 2 (two) times daily. [facility] dupilumab (DUPIXENT PEN) 300 mg/2 mL PnIj 07-23 00:00: 00 12-23 00:00 :00 No [id number] 300mg inject 1 Pen under the skin every 2 (two) weeks. [facility] tacrolimus (PROGRAF) 1 mg capsule 3-28 00:00: 00 08-26 00:00 :00 No [id number] Take 5 tablets in the morning and 4 tablets in the evening Diagnosis: Z 94.0 generic permitted [facility] TAMSULOSIN 0.4 mg 24 hr capsule - 00:00: 00 08-27 00:00 :00 No [id number] .8mg TAKE 2 CAPSULES BY MOUTH AT BEDTIME [facility] MIRTAZAPINE 7.5 mg tablet - 00:00: 00 02-19 00:00 :00 No [id number] TAKE 1 TABLET BY MOUTH EVERYDAY AT BEDTIME [facility] LISINOPRIL 5 mg tablet -06 00:00: 00 02-19 00:00 :00 No TAKE 1 TABLET BY MOUTH EVERY DAY [facility] dupilumab (DUPIXENT PEN) 300 mg/2 mL PnIj 2-16 00:00: 00 07-23 00:00 :00 No [id number] 300mg inject 1 Pen under the skin every 2 (two) weeks. [facility] docusate (COLACE) 100 mg capsule 05-07 00:00: 00 01-20 00:00 :00 No [id number] 100mg Take 1 capsule by mouth once daily as needed for Constipati on. [facility] furosemide 20 mg tablet - 00:00: 00 09-08 00:00 :00 No [id number] 20mg Take 1 tablet by mouth as needed (swelling) . [facility] allopurinoL 100 mg tablet - 00:00: 00 01-13 00:00 :00 No [id number] 100mg Take 1 tablet by mouth in the morning. [facility] fluticasone propionate (FLOVENT HFA) 220 mcg/actuati on inhaler - 00:00: 00 07-30 00:00 :00 No [id number] INHALE 1 PUFF EVERY 12 (TWELVE) HOURS. Rinse mouth after each use. [facility] nitroglycer in 0.4 mg sublingual tablet 05-07 00:00: 00 07-30 00:00 :[id number] 1 TABLET UNDER THE TONGUE EVERY 5 MINUTES NEEDED FOR CHEST PAIN FOR 3 DOSES. IF NO RELIEF, CALL 911. [facility] fluocinonid e 0.05 % cream 05-07 00:00: 00 07-23 00:00 :00 No [id number] Apply to area(s) 2 (two) times daily. [facility] furosemide 20 mg tablet 2021-04 00:00: 00 05-07 00:00 :00 No [id number] 20mg Take 1 tablet by mouth as needed (swelling) . [facility] iopamidol (ISOVUE 370-500 mL) injection 100 mL 2021-04 16:45: 00 04-15 15:46 :00 No [id number] 100mL 100 mL, Intravenou s, ONCE, 1 dose, On Fri04/15/22 at 1045, Routine [facility] tacrolimus (PROGRAF) 1 mg capsule 2021-04 00:00: 00 07-23 00:00 :00 No [id number] Take 5 tablets in the morning and 4 tablets in the evening Diagnosis: Z 94.0 generic permitted [facility] PRAVASTATIN 40 mg tablet 2021-04 00:00: 00 07-30 00:00 :00 No [id number] TAKE 1 TABLET BY MOUTH EVERYDAY AT BEDTIME [facility] OMEPRAZOLE 40 mg capsule 2021-04 00:00: 00 01-13 00:00 :00 No [id number] TAKE 1 CAPSULE BY MOUTH EVERY DAY [facility] MIRTAZAPINE 7.5 mg tablet 2021-04 00:00: 00 07-22 00:00 :00 No [id number] TAKE 1 TABLET BY MOUTH EVERYDAY AT BEDTIME [facility] clobetasoL 0.05 % cream 2021-04 1-09 00:00: 00 10-06 00:00 :00 No [id number] Apply to area(s) 2 (two) times daily. Only to itchy areas [facility] EZETIMIBE 10 mg tablet 2021-04 0-14 00:00: 00 01-13 00:00 :00 No [id number] TAKE 1 TABLET BY MOUTH EVERY DAY [facility] sucralfate 1 gram tablet 2021-04 0-10 00:00: 00 03-17 00:00 :00 No [id number] TAKE 1 TABLET BY MOUTH 4 TIMES A DAY [facility] allopurinoL 100 mg tablet 2021-04 0- 00:00: 00 05-07 00:00 :00 No [id number] 100mg Take 1 tablet by mouth in the morning. [facility] nitroglycer in 0.4 mg sublingual tablet 2021-04 0 00:00: 00 05-07 00:00 :[id number] 1 TABLET UNDER THE TONGUE EVERY 5 MINUTES NEEDED FOR CHEST PAIN FOR 3 DOSES. IF NO RELIEF, CALL 911. [facility] triamcinolo ne 0.5 % cream 2021-04 0- 00:00: 00 05-07 00:00 :00 No [id number] Apply to area(s) 3 (three) times daily. [facility] furosemide 20 mg tablet 2021-04 0-03 00:00: 00 04-25 00:00 :00 No [id number] 20mg Take 1 tablet by mouth as needed (swelling) . [facility] fluocinonid e 0.05 % cream 9- 00:00: 00 05-07 00:00 :00 No [id number] Apply to area(s) 2 (two) times daily. [facility] labetaloL 200 mg tablet 8- 00:00: 00 09-03 00:00 :00 No [id number] 400mg Take 2 tablets by mouth every 12 (twelve) hours. [facility] sofosbuvir- velpatasvir (EPCLUSA) 400-100 mg 10-02 00:00: 00 10-21 00:00 :00 No [id number] 1{tbl} Take 1 tablet by mouth daily. [facility] pravastatin 40 mg tablet 10-02 00:00: 00 03-28 00:00 :00 No [id number] 40mg Take 1 tablet by mouth at bedtime. [facility] allopurinoL 100 mg tablet 10-02 00:00: 00 02-04 00:00 :00 No [id number] 100mg Take 1 tablet by mouth daily. [facility] tamsulosin (FLOMAX) 0.4 mg 24 hr capsule 09-18 00:00: 00 07-22 00:00 :00 No [id number] .8mg Take 2 capsules by mouth at bedtime. [facility] fluticasone propionate (FLOVENT HFA) 220 mcg/actuati on inhaler 09-18 00:00: 00 05-07 00:00 :00 No [id number] INHALE 1 PUFF EVERY 12 (TWELVE) HOURS. Rinse mouth after each use. [facility] mirtazapine 7.5 mg tablet 09-18 00:00: 00 03-23 00:00 :00 No [id number] 7.5mg Take 1 tablet by mouth at bedtime. [facility] triamcinolo ne 0.5 % cream 09-18 00:00: 00 02-04 00:00 :00 No [id number] Apply to area(s) 3 (three) times daily. [facility] minoxidiL 10 mg tablet 09-06 00:00: 00 07-25 00:00 :00 No [id number] 5mg Take 0.5 tablets by mouth 2 (two) times daily. [facility] sucralfate 1 gram tablet 09-06 00:00: 02-04 00:00 :00 No [id number] TAKE 1 TABLET BY MOUTH 4 TIMES A DAY [facility] mycophenola te 250 mg capsule - 00:00: 00 08-06 00:00 :00 No 500mg Take 2 capsules by mouth every 12 (twelve) hours. OR PER TRANSPLANT DOCTOR. Z 94.0 Kidney transplant Generic permitted Indication s: z94.0 kidney transplant [facility] tacrolimus (PROGRAF) 1 mg capsule 3- 00:00: 00 04-15 00:00 :00 No [id number] 4mg Take 4 capsules by mouth every 12 (twelve) hours. Diagnosis: Z 94.0 generic permitted [facility] lisinopriL 5 mg tablet 3-16 00:00: 00 07-01 00:00 :00 No 5mg Take 1 tablet by mouth daily. [facility] FERROUS SULFATE 325 MG (65 MG IRON) ORAL CPSR 06-07 13:37: 47 06-07 00:00 :00 No 1 tab po bid [facility] predniSONE 5 mg tablet 10 00:00: 00 08-26 00:00 :00 No [id number] 5mg Take 1 tablet by mouth daily. [facility] NITROGLYCER IN 0.4 mg sublingual tablet 2020-04 2- 00:00: 00 02-04 00:00 :[id number] 1 TABLET UNDER THE TONGUE EVERY 5 MINUTES NEEDED FOR CHEST PAIN FOR 3 DOSES. IF NO RELIEF, CALL 911. [facility] furosemide 20 mg tablet 2020-04 2-20 00:00: 00 01-28 00:00 :00 No [id number] 20mg Take 1 tablet by mouth as needed (swelling) . [facility] OMEPRAZOLE 40 mg capsule 2020-04 1-19 00:00: 00 03-25 00:00 :00 No [id number] TAKE 1 CAPSULE BY MOUTH EVERY DAY [facility] ezetimibe 10 mg tablet 9-17 00:00: 02-08 00:00 :00 No [id number] 10mg Take 1 tablet by mouth daily. [facility] rosuvastati n 20 mg tablet 2019-04 00:00: 00 11-02 00:00 :00 No [id number] 20mg Take 1 tablet by mouth at bedtime. STOP PRAVASTATI N. [facility] allopurinoL 100 mg tablet 2019-04 00:00: 07-20 00:00 :00 No [id number] 100mg Take 1 tablet by mouth 2 (two) times daily. [facility] OMEPRAZOLE 40 mg capsule 2019-04 00:00: 00 06-01 00:00 :00 No [id number] 40mg TAKE 1 CAPSULE BY MOUTH DAILY. REPLACES ESOMEPRAZO LE. [facility] ergocalcife rol, vitamin d2, (VITAMIN D2) 1,250 mcg (50,000 unit) capsule 09-16 00:00: 06-07 00:00 :00 No [id number] 40220D Take 1 capsule by mouth weekly. [facility] ESCITALOPRA M OXALATE 10 mg tablet 09-15 00:0002-12 00:00 :00 No [id number] TAKE 1 TABLET BY MOUTH EVERY DAY [facility] nitroglycer in 0.4 mg sublingual tablet 08-27 00:00: 01-09 00:00 :[id number] 1 tablet under the tongue every 5 (five) minutes as needed for Chest pain (Take every 5 minutes X3, if chest pain not relieved, please go to ER). [facility] acetaminoph en-codeine 300-30 mg tablet 08-27 00:00: 00 08-14 00:00 :00 No [id number] 1{tbl} Take 1 tablet by mouth every 8 (eight) hours as needed (moderate to severe pain). [facility] furosemide 20 mg tablet - 00:00: 07-20 00:00 :00 No [id number] 20mg Take 1 tablet by mouth daily. [facility] sucralfate 1 gram tablet 06-14 00:00: 07-20 00:00 :00 No TAKE 1 TABLET BY MOUTH 4 TIMES A DAY [facility] mycophenola te 250 mg capsule 06-14 00:00: 06-01 00:00 :00 No Take 2 tabs am and 2 tabs pm Z 94.0 Kidney transplant Generic permitted Indication s: z94.0 kidney transplant [facility] predniSONE 5 mg tablet 06-14 00:00: 00 06-01 00:00 :00 No [id number] 5mg Take 1 tablet by mouth daily. [facility] minoxidil 10 mg tablet 06-14 00:00: 06-01 00:00 :00 No 5mg Take 0.5 tablets by mouth 2 (two) times daily. [facility] tamsulosin (FLOMAX) 0.4 mg 24 hr capsule 06-14 00:00: 06-01 00:00 :00 No [id number] .8mg Take 2 capsules by mouth at bedtime. [facility] tacrolimus (PROGRAF) 1 mg capsule 06-14 00:00: 00 06-01 00:00 :00 No [id number] Take 4 mg am and 4 mg pm Diagnosis: Z 94.0 generic permitted [facility] triamcinolo ne acetonide 0.1 % cream 05-31 00:00: 00 08-25 00:00 :00 No [id number] Apply to area(s) 2 (two) times daily. [facility] labetalol 200 mg tablet 05-31 00:00: 00 06-01 00:00 :00 No [id number] 200mg Take 1 tablet by mouth every 12 (twelve) hours. [facility] vitamin B-12 (VITAMIN B-12) 500 mcg tablet 16 00:00: 02-12 00:00 :00 No [id number] 500ug Take 1 tablet by mouth daily. [facility] magnesium oxide (MAG-OX 400) 400 mg tablet 12-13 00:00: 00 07-17 00:00 :00 No 400mg Take 1 Tab by mouth 2 (two) times daily. [facility] aspirin 325 mg tablet 12-19 00:00: 00 07-15 00:00 :00 No 325mg Take 1 Tab by mouth daily. [facility] Immunizations Ordered Immunization Name Filled Immunization Name Date Status Comments Source Influenza Virus Vaccine 2024-01-22 00:00:00 Completed [facility] Pneumococcal 7 Conjugate, PCV7 (Prevnar7) 2024-01-22 00:00:00 Completed [facility] Influenza Virus Vaccine (3+ yrs) 2024-01-22 00:00:00 Completed [facility] Influenza Virus Vaccine Quad IM 3+ YRS 2024-01-22 00:00:00 Completed [facility] SARS-COV-2 COVID-19 MODERNA 12+ YRS VACCINE 2024-01-22 00:00:00 Completed [facility] Influenza Virus Vaccine,quad Im,preserve Free 65+ (FLUAD) 2024-01-22 00:00:00 Completed [facility] Pneumococcal 13 Conjugate, PCV13 (Prevnar 13) 2024-01-22 00:00:00 Completed [facility] SARS-COV-2 COVID-19 MODERNA 0.25ML BOOSTER VACCINE 2024-01-22 00:00:00 Completed [facility] SARS-COV-2 COVID-19 VACCINE 12 YRS+, BIVALENT 0.5ML, IM, (MODERNA-BLUE TOP) 2024-01-22 00:00:00 Completed [facility] Pneumococcal 20 Conjugate, PCV20 (Prevnar 20) 2024-01-22 00:00:00 Completed [facility] Influenza, adjuvanted, trivalent, PF (FLUAD) 2024-01-22 00:00:00 Completed [facility] TDAP 2024-01-22 00:00:00 Completed [facility] SARS-COV-2 COVID 19 BRITTANEY SUCROSE VACCINE 12+, , 0.3 ML (30 MCG), IM PFIZER (ROCHA TOP) 2024-01-22 00:00:00 Completed [facility] Influenza Virus Vaccine 2024-01-09 00:00:00 Completed [facility] Influenza Virus Vaccine (3+ yrs) 2024-01-09 00:00:00 Completed [facility] SARS-COV-2 COVID-19 MODERNA 12+ YRS VACCINE 2024-01-09 00:00:00 Completed [facility] Influenza Virus Vaccine,quad Im,preserve Free 65+ (FLUAD) 2024-01-09 00:00:00 Completed [facility] Influenza Virus Vaccine 2023-10-14 00:00:00 Completed [facility] Pneumococcal 7 Conjugate, PCV7 (Prevnar7) 2023-10-14 00:00:00 Completed [facility] Influenza Virus Vaccine (3+ yrs) 2023-10-14 00:00:00 Completed [facility] Influenza Virus Vaccine Quad IM 3+ YRS 2023-10-14 00:00:00 Completed [facility] SARS-COV-2 COVID-19 MODERNA 12+ YRS VACCINE 2023-10-14 00:00:00 Completed [facility] Influenza Virus Vaccine,quad Im,preserve Free 65+ (FLUAD) 2023-10-14 00:00:00 Completed [facility] Pneumococcal 13 Conjugate, PCV13 (Prevnar 13) 2023-10-14 00:00:00 Completed [facility] SARS-COV-2 COVID-19 MODERNA 0.25ML BOOSTER VACCINE 2023-10-14 00:00:00 Completed [facility] SARS-COV-2 COVID-19 VACCINE 12 YRS+, BIVALENT 0.5ML, IM, (MODERNA-BLUE TOP) 2023-10-14 00:00:00 Completed [facility] Pneumococcal 20 Conjugate, PCV20 (Prevnar 20) 2023-10-14 00:00:00 Completed [facility] Influenza Virus Vaccine 2023-10-07 10:30:00 Completed [facility] Pneumococcal 7 Conjugate, PCV7 (Prevnar7) 2023-10-07 10:30:00 Completed [facility] Influenza Virus Vaccine (3+ yrs) 2023-10-07 10:30:00 Completed [facility] Influenza Virus Vaccine Quad IM 3+ YRS 2023-10-07 10:30:00 Completed [facility] SARS-COV-2 COVID-19 MODERNA 12+ YRS VACCINE 2023-10-07 10:30:00 Completed [facility] Influenza Virus Vaccine,quad Im,preserve Free 65+ (FLUAD) 2023-10-07 10:30:00 Completed [facility] Pneumococcal 13 Conjugate, PCV13 (Prevnar 13) 2023-10-07 10:30:00 Completed [facility] SARS-COV-2 COVID-19 MODERNA 0.25ML BOOSTER VACCINE 2023-10-07 10:30:00 Completed [facility] SARS-COV-2 COVID-19 VACCINE 12 YRS+, BIVALENT 0.5ML, IM, (MODERNA-BLUE TOP) 2023-10-07 10:30:00 Completed [facility] Pneumococcal 20 Conjugate, PCV20 (Prevnar 20) 2023-10-07 10:30:00 Completed [facility] Pneumococcal 7 Conjugate, PCV7 (Prevnar7) 2023-10-07 10:00:00 Completed [facility] Influenza Virus Vaccine Quad IM 3+ YRS 2023-10-07 10:00:00 Completed [facility] Pneumococcal 13 Conjugate, PCV13 (Prevnar 13) 2023-10-07 10:00:00 Completed [facility] SARS-COV-2 COVID-19 MODERNA 0.25ML BOOSTER VACCINE 2023-10-07 10:00:00 Completed [facility] SARS-COV-2 COVID-19 VACCINE 12 YRS+, BIVALENT 0.5ML, IM, (MODERNA-BLUE TOP) 2023-10-07 10:00:00 Completed [facility] Pneumococcal 20 Conjugate, PCV20 (Prevnar 20) 2023-10-07 10:00:00 Completed [facility] Influenza Virus Vaccine 2023-10-07 10:00:00 Completed [facility] Influenza Virus Vaccine (3+ yrs) 2023-10-07 10:00:00 Completed [facility] SARS-COV-2 COVID-19 MODERNA 12+ YRS VACCINE 2023-10-07 10:00:00 Completed [facility] Influenza Virus Vaccine,quad Im,preserve Free 65+ (FLUAD) 2023-10-07 10:00:00 Completed [facility] Influenza Virus Vaccine 2023-09-29 00:00:00 Completed [facility] Pneumococcal 7 Conjugate, PCV7 (Prevnar7) 2023-09-29 00:00:00 Completed [facility] Influenza Virus Vaccine (3+ yrs) 2023-09-29 00:00:00 Completed [facility] Influenza Virus Vaccine Quad IM 3+ YRS 2023-09-29 00:00:00 Completed [facility] SARS-COV-2 COVID-19 MODERNA 12+ YRS VACCINE 2023-09-29 00:00:00 Completed [facility] Influenza Virus Vaccine,quad Im,preserve Free 65+ (FLUAD) 2023-09-29 00:00:00 Completed [facility] Pneumococcal 13 Conjugate, PCV13 (Prevnar 13) 2023-09-29 00:00:00 Completed [facility] SARS-COV-2 COVID-19 MODERNA 0.25ML BOOSTER VACCINE 2023-09-29 00:00:00 Completed [facility] SARS-COV-2 COVID-19 VACCINE 12 YRS+, BIVALENT 0.5ML, IM, (MODERNA-BLUE TOP) 2023-09-29 00:00:00 Completed [facility] Pneumococcal 20 Conjugate, PCV20 (Prevnar 20) 2023-09-29 00:00:00 Completed [facility] Influenza Virus Vaccine 2023-09-21 00:00:00 Completed [facility] Pneumococcal 7 Conjugate, PCV7 (Prevnar7) 2023-09-21 00:00:00 Completed [facility] Influenza Virus Vaccine (3+ yrs) 2023-09-21 00:00:00 Completed [facility] Influenza Virus Vaccine Quad IM 3+ YRS 2023-09-21 00:00:00 Completed [facility] SARS-COV-2 COVID-19 MODERNA 12+ YRS VACCINE 2023-09-21 00:00:00 Completed [facility] Influenza Virus Vaccine,quad Im,preserve Free 65+ (FLUAD) 2023-09-21 00:00:00 Completed [facility] Pneumococcal 13 Conjugate, PCV13 (Prevnar 13) 2023-09-21 00:00:00 Completed [facility] SARS-COV-2 COVID-19 MODERNA 0.25ML BOOSTER VACCINE 2023-09-21 00:00:00 Completed [facility] SARS-COV-2 COVID-19 VACCINE 12 YRS+, BIVALENT 0.5ML, IM, (MODERNA-BLUE TOP) 2023-09-21 00:00:00 Completed [facility] Pneumococcal 20 Conjugate, PCV20 (Prevnar 20) 2023-09-21 00:00:00 Completed [facility] Influenza Virus Vaccine 2023-09-16 00:00:00 Completed [facility] Pneumococcal 7 Conjugate, PCV7 (Prevnar7) 2023-09-16 00:00:00 Completed [facility] Influenza Virus Vaccine (3+ yrs) 2023-09-16 00:00:00 Completed [facility] Influenza Virus Vaccine Quad IM 3+ YRS 2023-09-16 00:00:00 Completed [facility] SARS-COV-2 COVID-19 MODERNA 12+ YRS VACCINE 2023-09-16 00:00:00 Completed [facility] Influenza Virus Vaccine,quad Im,preserve Free 65+ (FLUAD) 2023-09-16 00:00:00 Completed [facility] Pneumococcal 13 Conjugate, PCV13 (Prevnar 13) 2023-09-16 00:00:00 Completed [facility] SARS-COV-2 COVID-19 MODERNA 0.25ML BOOSTER VACCINE 2023-09-16 00:00:00 Completed [facility] SARS-COV-2 COVID-19 VACCINE 12 YRS+, BIVALENT 0.5ML, IM, (MODERNA-BLUE TOP) 2023-09-16 00:00:00 Completed [facility] Pneumococcal 20 Conjugate, PCV20 (Prevnar 20) 2023-09-16 00:00:00 Completed [facility] Influenza Virus Vaccine 2023-09-09 00:00:00 Completed [facility] Pneumococcal 7 Conjugate, PCV7 (Prevnar7) 2023-09-09 00:00:00 Completed [facility] Influenza Virus Vaccine (3+ yrs) 2023-09-09 00:00:00 Completed [facility] Influenza Virus Vaccine Quad IM 3+ YRS 2023-09-09 00:00:00 Completed [facility] SARS-COV-2 COVID-19 MODERNA 12+ YRS VACCINE 2023-09-09 00:00:00 Completed [facility] Influenza Virus Vaccine,quad Im,preserve Free 65+ (FLUAD) 2023-09-09 00:00:00 Completed [facility] Pneumococcal 13 Conjugate, PCV13 (Prevnar 13) 2023-09-09 00:00:00 Completed [facility] SARS-COV-2 COVID-19 MODERNA 0.25ML BOOSTER VACCINE 2023-09-09 00:00:00 Completed [facility] SARS-COV-2 COVID-19 VACCINE 12 YRS+, BIVALENT 0.5ML, IM, (MODERNA-BLUE TOP) 2023-09-09 00:00:00 Completed [facility] Pneumococcal 20 Conjugate, PCV20 (Prevnar 20) 2023-09-09 00:00:00 Completed [facility] Influenza Virus Vaccine 2023-09-08 00:00:00 Completed [facility] Pneumococcal 7 Conjugate, PCV7 (Prevnar7) 2023-09-08 00:00:00 Completed [facility] Influenza Virus Vaccine (3+ yrs) 2023-09-08 00:00:00 Completed [facility] Influenza Virus Vaccine Quad IM 3+ YRS 2023-09-08 00:00:00 Completed [facility] SARS-COV-2 COVID-19 MODERNA 12+ YRS VACCINE 2023-09-08 00:00:00 Completed [facility] Influenza Virus Vaccine,quad Im,preserve Free 65+ (FLUAD) 2023-09-08 00:00:00 Completed [facility] Pneumococcal 13 Conjugate, PCV13 (Prevnar 13) 2023-09-08 00:00:00 Completed [facility] SARS-COV-2 COVID-19 MODERNA 0.25ML BOOSTER VACCINE 2023-09-08 00:00:00 Completed [facility] SARS-COV-2 COVID-19 VACCINE 12 YRS+, BIVALENT 0.5ML, IM, (MODERNA-BLUE TOP) 2023-09-08 00:00:00 Completed [facility] Pneumococcal 20 Conjugate, PCV20 (Prevnar 20) 2023-09-08 00:00:00 Completed [facility] Influenza Virus Vaccine 2023-09-08 00:00:00 Completed [facility] Pneumococcal 7 Conjugate, PCV7 (Prevnar7) 2023-09-08 00:00:00 Completed [facility] Influenza Virus Vaccine (3+ yrs) 2023-09-08 00:00:00 Completed [facility] Influenza Virus Vaccine Quad IM 3+ YRS 2023-09-08 00:00:00 Completed [facility] SARS-COV-2 COVID-19 MODERNA 12+ YRS VACCINE 2023-09-08 00:00:00 Completed [facility] Influenza Virus Vaccine,quad Im,preserve Free 65+ (FLUAD) 2023-09-08 00:00:00 Completed [facility] Pneumococcal 13 Conjugate, PCV13 (Prevnar 13) 2023-09-08 00:00:00 Completed [facility] SARS-COV-2 COVID-19 MODERNA 0.25ML BOOSTER VACCINE 2023-09-08 00:00:00 Completed [facility] SARS-COV-2 COVID-19 VACCINE 12 YRS+, BIVALENT 0.5ML, IM, (MODERNA-BLUE TOP) 2023-09-08 00:00:00 Completed [facility] Pneumococcal 20 Conjugate, PCV20 (Prevnar 20) 2023-09-08 00:00:00 Completed [facility] Pneumococcal 7 Conjugate, PCV7 (Prevnar7) 2023-09-01 00:00:00 Completed [facility] Influenza Virus Vaccine (3+ yrs) 2023-09-01 00:00:00 Completed [facility] Influenza Virus Vaccine Quad IM 3+ YRS 2023-09-01 00:00:00 Completed [facility] SARS-COV-2 COVID-19 MODERNA 12+ YRS VACCINE 2023-09-01 00:00:00 Completed [facility] Influenza Virus Vaccine,quad Im,preserve Free 65+ (FLUAD) 2023-09-01 00:00:00 Completed [facility] Pneumococcal 13 Conjugate, PCV13 (Prevnar 13) 2023-09-01 00:00:00 Completed [facility] SARS-COV-2 COVID-19 MODERNA 0.25ML BOOSTER VACCINE 2023-09-01 00:00:00 Completed [facility] SARS-COV-2 COVID-19 VACCINE 12 YRS+, BIVALENT 0.5ML, IM, (MODERNA-BLUE TOP) 2023-09-01 00:00:00 Completed [facility] Pneumococcal 20 Conjugate, PCV20 (Prevnar 20) 2023-09-01 00:00:00 Completed [facility] Influenza Virus Vaccine 2023-09-01 00:00:00 Completed [facility] Influenza Virus Vaccine 2023-08-28 00:00:00 Completed [facility] Pneumococcal 7 Conjugate, PCV7 (Prevnar7) 2023-08-28 00:00:00 Completed [facility] Influenza Virus Vaccine (3+ yrs) 2023-08-28 00:00:00 Completed [facility] Influenza Virus Vaccine Quad IM 3+ YRS 2023-08-28 00:00:00 Completed [facility] SARS-COV-2 COVID-19 MODERNA 12+ YRS VACCINE 2023-08-28 00:00:00 Completed [facility] Influenza Virus Vaccine,quad Im,preserve Free 65+ (FLUAD) 2023-08-28 00:00:00 Completed [facility] Pneumococcal 13 Conjugate, PCV13 (Prevnar 13) 2023-08-28 00:00:00 Completed [facility] SARS-COV-2 COVID-19 MODERNA 0.25ML BOOSTER VACCINE 2023-08-28 00:00:00 Completed [facility] SARS-COV-2 COVID-19 VACCINE 12 YRS+, BIVALENT 0.5ML, IM, (MODERNA-BLUE TOP) 2023-08-28 00:00:00 Completed [facility] Pneumococcal 20 Conjugate, PCV20 (Prevnar 20) 2023-08-28 00:00:00 Completed [facility] Influenza Virus Vaccine 2023-08-28 00:00:00 Completed [facility] Pneumococcal 7 Conjugate, PCV7 (Prevnar7) 2023-08-28 00:00:00 Completed [facility] Influenza Virus Vaccine (3+ yrs) 2023-08-28 00:00:00 Completed [facility] Influenza Virus Vaccine Quad IM 3+ YRS 2023-08-28 00:00:00 Completed [facility] SARS-COV-2 COVID-19 MODERNA 12+ YRS VACCINE 2023-08-28 00:00:00 Completed [facility] Influenza Virus Vaccine,quad Im,preserve Free 65+ (FLUAD) 2023-08-28 00:00:00 Completed [facility] Pneumococcal 13 Conjugate, PCV13 (Prevnar 13) 2023-08-28 00:00:00 Completed [facility] SARS-COV-2 COVID-19 MODERNA 0.25ML BOOSTER VACCINE 2023-08-28 00:00:00 Completed [facility] SARS-COV-2 COVID-19 VACCINE 12 YRS+, BIVALENT 0.5ML, IM, (MODERNA-BLUE TOP) 2023-08-28 00:00:00 Completed [facility] Pneumococcal 20 Conjugate, PCV20 (Prevnar 20) 2023-08-28 00:00:00 Completed [facility] Influenza Virus Vaccine 2023-08-28 00:00:00 Completed [facility] Pneumococcal 7 Conjugate, PCV7 (Prevnar7) 2023-08-28 00:00:00 Completed [facility] Influenza Virus Vaccine (3+ yrs) 2023-08-28 00:00:00 Completed [facility] Influenza Virus Vaccine Quad IM 3+ YRS 2023-08-28 00:00:00 Completed [facility] SARS-COV-2 COVID-19 MODERNA 12+ YRS VACCINE 2023-08-28 00:00:00 Completed [facility] Influenza Virus Vaccine,quad Im,preserve Free 65+ (FLUAD) 2023-08-28 00:00:00 Completed [facility] Pneumococcal 13 Conjugate, PCV13 (Prevnar 13) 2023-08-28 00:00:00 Completed [facility] SARS-COV-2 COVID-19 MODERNA 0.25ML BOOSTER VACCINE 2023-08-28 00:00:00 Completed [facility] SARS-COV-2 COVID-19 VACCINE 12 YRS+, BIVALENT 0.5ML, IM, (MODERNA-BLUE TOP) 2023-08-28 00:00:00 Completed [facility] Pneumococcal 20 Conjugate, PCV20 (Prevnar 20) 2023-08-28 00:00:00 Completed [facility] Influenza Virus Vaccine 2023-08-21 10:30:00 Completed [facility] Pneumococcal 7 Conjugate, PCV7 (Prevnar7) 2023-08-21 10:30:00 Completed [facility] Influenza Virus Vaccine (3+ yrs) 2023-08-21 10:30:00 Completed [facility] Influenza Virus Vaccine Quad IM 3+ YRS 2023-08-21 10:30:00 Completed [facility] SARS-COV-2 COVID-19 MODERNA 12+ YRS VACCINE 2023-08-21 10:30:00 Completed [facility] Influenza Virus Vaccine,quad Im,preserve Free 65+ (FLUAD) 2023-08-21 10:30:00 Completed [facility] Pneumococcal 13 Conjugate, PCV13 (Prevnar 13) 2023-08-21 10:30:00 Completed [facility] SARS-COV-2 COVID-19 MODERNA 0.25ML BOOSTER VACCINE 2023-08-21 10:30:00 Completed [facility] SARS-COV-2 COVID-19 VACCINE 12 YRS+, BIVALENT 0.5ML, IM, (MODERNA-BLUE TOP) 2023-08-21 10:30:00 Completed [facility] Pneumococcal 20 Conjugate, PCV20 (Prevnar 20) 2023-08-21 10:30:00 Completed [facility] Pneumococcal 7 Conjugate, PCV7 (Prevnar7) 2023-07-31 14:15:00 Completed [facility] Influenza Virus Vaccine Quad IM 3+ YRS 2023-07-31 14:15:00 Completed [facility] Pneumococcal 13 Conjugate, PCV13 (Prevnar 13) 2023-07-31 14:15:00 Completed [facility] SARS-COV-2 COVID-19 MODERNA 0.25ML BOOSTER VACCINE 2023-07-31 14:15:00 Completed [facility] SARS-COV-2 COVID-19 VACCINE 12 YRS+, BIVALENT 0.5ML, IM, (MODERNA-BLUE TOP) 2023-07-31 14:15:00 Completed [facility] Pneumococcal 20 Conjugate, PCV20 (Prevnar 20) 2023-07-31 14:15:00 Completed [facility] Influenza Virus Vaccine 2023-07-31 14:15:00 Completed [facility] Influenza Virus Vaccine (3+ yrs) 2023-07-31 14:15:00 Completed [facility] SARS-COV-2 COVID-19 MODERNA 12+ YRS VACCINE 2023-07-31 14:15:00 Completed [facility] Influenza Virus Vaccine,quad Im,preserve Free 65+ (FLUAD) 2023-07-31 14:15:00 Completed [facility] Influenza Virus Vaccine 2023-07-28 00:00:00 Completed [facility] Pneumococcal 7 Conjugate, PCV7 (Prevnar7) 2023-07-28 00:00:00 Completed [facility] Influenza Virus Vaccine (3+ yrs) 2023-07-28 00:00:00 Completed [facility] Influenza Virus Vaccine Quad IM 3+ YRS 2023-07-28 00:00:00 Completed [facility] SARS-COV-2 COVID-19 MODERNA 12+ YRS VACCINE 2023-07-28 00:00:00 Completed [facility] Influenza Virus Vaccine,quad Im,preserve Free 65+ (FLUAD) 2023-07-28 00:00:00 Completed [facility] Pneumococcal 13 Conjugate, PCV13 (Prevnar 13) 2023-07-28 00:00:00 Completed [facility] SARS-COV-2 COVID-19 MODERNA 0.25ML BOOSTER VACCINE 2023-07-28 00:00:00 Completed [facility] SARS-COV-2 COVID-19 VACCINE 12 YRS+, BIVALENT 0.5ML, IM, (MODERNA-BLUE TOP) 2023-07-28 00:00:00 Completed [facility] Pneumococcal 20 Conjugate, PCV20 (Prevnar 20) 2023-07-28 00:00:00 Completed [facility] Influenza Virus Vaccine 2023-07-18 00:00:00 Completed [facility] Pneumococcal 7 Conjugate, PCV7 (Prevnar7) 2023-07-18 00:00:00 Completed [facility] Influenza Virus Vaccine (3+ yrs) 2023-07-18 00:00:00 Completed [facility] Influenza Virus Vaccine Quad IM 3+ YRS 2023-07-18 00:00:00 Completed [facility] SARS-COV-2 COVID-19 MODERNA 12+ YRS VACCINE 2023-07-18 00:00:00 Completed [facility] Influenza Virus Vaccine,quad Im,preserve Free 65+ (FLUAD) 2023-07-18 00:00:00 Completed [facility] Pneumococcal 13 Conjugate, PCV13 (Prevnar 13) 2023-07-18 00:00:00 Completed [facility] SARS-COV-2 COVID-19 MODERNA 0.25ML BOOSTER VACCINE 2023-07-18 00:00:00 Completed [facility] SARS-COV-2 COVID-19 VACCINE 12 YRS+, BIVALENT 0.5ML, IM, (MODERNA-BLUE TOP) 2023-07-18 00:00:00 Completed [facility] Pneumococcal 20 Conjugate, PCV20 (Prevnar 20) 2023-07-18 00:00:00 Completed [facility] Influenza Virus Vaccine 2023-07-08 19:30:00 Completed [facility] Pneumococcal 7 Conjugate, PCV7 (Prevnar7) 2023-07-08 19:30:00 Completed [facility] Influenza Virus Vaccine (3+ yrs) 2023-07-08 19:30:00 Completed [facility] Influenza Virus Vaccine Quad IM 3+ YRS 2023-07-08 19:30:00 Completed [facility] SARS-COV-2 COVID-19 MODERNA 12+ YRS VACCINE 2023-07-08 19:30:00 Completed [facility] Influenza Virus Vaccine,quad Im,preserve Free 65+ (FLUAD) 2023-07-08 19:30:00 Completed [facility] Pneumococcal 13 Conjugate, PCV13 (Prevnar 13) 2023-07-08 19:30:00 Completed [facility] SARS-COV-2 COVID-19 MODERNA 0.25ML BOOSTER VACCINE 2023-07-08 19:30:00 Completed [facility] SARS-COV-2 COVID-19 VACCINE 12 YRS+, BIVALENT 0.5ML, IM, (MODERNA-BLUE TOP) 2023-07-08 19:30:00 Completed [facility] Pneumococcal 20 Conjugate, PCV20 (Prevnar 20) 2023-07-08 19:30:00 Completed [facility] Influenza Virus Vaccine 2023-07-08 06:45:00 Completed [facility] Pneumococcal 7 Conjugate, PCV7 (Prevnar7) 2023-07-08 06:45:00 Completed [facility] Influenza Virus Vaccine (3+ yrs) 2023-07-08 06:45:00 Completed [facility] Influenza Virus Vaccine Quad IM 3+ YRS 2023-07-08 06:45:00 Completed [facility] SARS-COV-2 COVID-19 MODERNA 12+ YRS VACCINE 2023-07-08 06:45:00 Completed [facility] Influenza Virus Vaccine,quad Im,preserve Free 65+ (FLUAD) 2023-07-08 06:45:00 Completed [facility] Pneumococcal 13 Conjugate, PCV13 (Prevnar 13) 2023-07-08 06:45:00 Completed [facility] SARS-COV-2 COVID-19 MODERNA 0.25ML BOOSTER VACCINE 2023-07-08 06:45:00 Completed [facility] SARS-COV-2 COVID-19 VACCINE 12 YRS+, BIVALENT 0.5ML, IM, (MODERNA-BLUE TOP) 2023-07-08 06:45:00 Completed [facility] Pneumococcal 20 Conjugate, PCV20 (Prevnar 20) 2023-07-08 06:45:00 Completed [facility] Influenza Virus Vaccine 2023-07-04 15:12:00 Completed [facility] Pneumococcal 7 Conjugate, PCV7 (Prevnar7) 2023-07-04 15:12:00 Completed [facility] Influenza Virus Vaccine (3+ yrs) 2023-07-04 15:12:00 Completed [facility] Influenza Virus Vaccine Quad IM 3+ YRS 2023-07-04 15:12:00 Completed [facility] SARS-COV-2 COVID-19 MODERNA 12+ YRS VACCINE 2023-07-04 15:12:00 Completed [facility] Influenza Virus Vaccine,quad Im,preserve Free 65+ (FLUAD) 2023-07-04 15:12:00 Completed [facility] Pneumococcal 13 Conjugate, PCV13 (Prevnar 13) 2023-07-04 15:12:00 Completed [facility] SARS-COV-2 COVID-19 MODERNA 0.25ML BOOSTER VACCINE 2023-07-04 15:12:00 Completed [facility] SARS-COV-2 COVID-19 VACCINE 12 YRS+, BIVALENT 0.5ML, IM, (MODERNA-BLUE TOP) 2023-07-04 15:12:00 Completed [facility] Pneumococcal 20 Conjugate, PCV20 (Prevnar 20) 2023-07-04 15:12:00 Completed [facility] Influenza Virus Vaccine 2023-07-02 19:45:00 Completed [facility] Pneumococcal 7 Conjugate, PCV7 (Prevnar7) 2023-07-02 19:45:00 Completed [facility] Influenza Virus Vaccine (3+ yrs) 2023-07-02 19:45:00 Completed [facility] Influenza Virus Vaccine Quad IM 3+ YRS 2023-07-02 19:45:00 Completed [facility] SARS-COV-2 COVID-19 MODERNA 12+ YRS VACCINE 2023-07-02 19:45:00 Completed [facility] Influenza Virus Vaccine,quad Im,preserve Free 65+ (FLUAD) 2023-07-02 19:45:00 Completed [facility] Pneumococcal 13 Conjugate, PCV13 (Prevnar 13) 2023-07-02 19:45:00 Completed [facility] SARS-COV-2 COVID-19 MODERNA 0.25ML BOOSTER VACCINE 2023-07-02 19:45:00 Completed [facility] SARS-COV-2 COVID-19 VACCINE 12 YRS+, BIVALENT 0.5ML, IM, (MODERNA-BLUE TOP) 2023-07-02 19:45:00 Completed [facility] Pneumococcal 20 Conjugate, PCV20 (Prevnar 20) 2023-07-02 19:45:00 Completed [facility] Influenza Virus Vaccine 2023-07-02 00:00:00 Completed [facility] Pneumococcal 7 Conjugate, PCV7 (Prevnar7) 2023-07-02 00:00:00 Completed [facility] Influenza Virus Vaccine (3+ yrs) 2023-07-02 00:00:00 Completed [facility] Influenza Virus Vaccine Quad IM 3+ YRS 2023-07-02 00:00:00 Completed [facility] SARS-COV-2 COVID-19 MODERNA 12+ YRS VACCINE 2023-07-02 00:00:00 Completed [facility] Influenza Virus Vaccine,quad Im,preserve Free 65+ (FLUAD) 2023-07-02 00:00:00 Completed [facility] Pneumococcal 13 Conjugate, PCV13 (Prevnar 13) 2023-07-02 00:00:00 Completed [facility] SARS-COV-2 COVID-19 MODERNA 0.25ML BOOSTER VACCINE 2023-07-02 00:00:00 Completed [facility] SARS-COV-2 COVID-19 VACCINE 12 YRS+, BIVALENT 0.5ML, IM, (MODERNA-BLUE TOP) 2023-07-02 00:00:00 Completed [facility] Pneumococcal 20 Conjugate, PCV20 (Prevnar 20) 2023-07-02 00:00:00 Completed [facility] Influenza Virus Vaccine 2023-06-24 00:00:00 Completed [facility] Pneumococcal 7 Conjugate, PCV7 (Prevnar7) 2023-06-24 00:00:00 Completed [facility] Influenza Virus Vaccine (3+ yrs) 2023-06-24 00:00:00 Completed [facility] Influenza Virus Vaccine Quad IM 3+ YRS 2023-06-24 00:00:00 Completed [facility] SARS-COV-2 COVID-19 MODERNA 12+ YRS VACCINE 2023-06-24 00:00:00 Completed [facility] Influenza Virus Vaccine,quad Im,preserve Free 65+ (FLUAD) 2023-06-24 00:00:00 Completed [facility] Pneumococcal 13 Conjugate, PCV13 (Prevnar 13) 2023-06-24 00:00:00 Completed [facility] SARS-COV-2 COVID-19 MODERNA 0.25ML BOOSTER VACCINE 2023-06-24 00:00:00 Completed [facility] SARS-COV-2 COVID-19 VACCINE 12 YRS+, BIVALENT 0.5ML, IM, (MODERNA-BLUE TOP) 2023-06-24 00:00:00 Completed [facility] Pneumococcal 20 Conjugate, PCV20 (Prevnar 20) 2023-06-24 00:00:00 Completed [facility] Pneumococcal 7 Conjugate, PCV7 (Prevnar7) 2023-06-20 10:00:00 Completed [facility] Influenza Virus Vaccine Quad IM 3+ YRS 2023-06-20 10:00:00 Completed [facility] Pneumococcal 13 Conjugate, PCV13 (Prevnar 13) 2023-06-20 10:00:00 Completed [facility] SARS-COV-2 COVID-19 MODERNA 0.25ML BOOSTER VACCINE 2023-06-20 10:00:00 Completed [facility] SARS-COV-2 COVID-19 VACCINE 12 YRS+, BIVALENT 0.5ML, IM, (MODERNA-BLUE TOP) 2023-06-20 10:00:00 Completed [facility] Pneumococcal 20 Conjugate, PCV20 (Prevnar 20) 2023-06-20 10:00:00 Completed [facility] Influenza Virus Vaccine 2023-06-20 10:00:00 Completed [facility] Influenza Virus Vaccine (3+ yrs) 2023-06-20 10:00:00 Completed [facility] SARS-COV-2 COVID-19 MODERNA 12+ YRS VACCINE 2023-06-20 10:00:00 Completed [facility] Influenza Virus Vaccine,quad Im,preserve Free 65+ (FLUAD) 2023-06-20 10:00:00 Completed [facility] Influenza Virus Vaccine 2023-06-20 00:00:00 Completed [facility] Pneumococcal 7 Conjugate, PCV7 (Prevnar7) 2023-06-20 00:00:00 Completed [facility] Influenza Virus Vaccine (3+ yrs) 2023-06-20 00:00:00 Completed [facility] Influenza Virus Vaccine Quad IM 3+ YRS 2023-06-20 00:00:00 Completed [facility] SARS-COV-2 COVID-19 MODERNA 12+ YRS VACCINE 2023-06-20 00:00:00 Completed [facility] Influenza Virus Vaccine,quad Im,preserve Free 65+ (FLUAD) 2023-06-20 00:00:00 Completed [facility] Pneumococcal 13 Conjugate, PCV13 (Prevnar 13) 2023-06-20 00:00:00 Completed [facility] SARS-COV-2 COVID-19 MODERNA 0.25ML BOOSTER VACCINE 2023-06-20 00:00:00 Completed [facility] SARS-COV-2 COVID-19 VACCINE 12 YRS+, BIVALENT 0.5ML, IM, (MODERNA-BLUE TOP) 2023-06-20 00:00:00 Completed [facility] [facility] Pneumococcal 20 Conjugate, PCV20 (Prevnar 20) 2023-06-20 00:00:00 Completed [facility] Influenza Virus Vaccine 2023-06-12 00:00:00 Completed [facility] Pneumococcal 7 Conjugate, PCV7 (Prevnar7) 2023-06-12 00:00:00 Completed [facility] Influenza Virus Vaccine (3+ yrs) 2023-06-12 00:00:00 Completed [facility] Influenza Virus Vaccine Quad IM 3+ YRS 2023-06-12 00:00:00 Completed [facility] SARS-COV-2 COVID-19 MODERNA 12+ YRS VACCINE 2023-06-12 00:00:00 Completed [facility] Influenza Virus Vaccine,quad Im,preserve Free 65+ (FLUAD) 2023-06-12 00:00:00 Completed [facility] Pneumococcal 13 Conjugate, PCV13 (Prevnar 13) 2023-06-12 00:00:00 Completed [facility] SARS-COV-2 COVID-19 MODERNA 0.25ML BOOSTER VACCINE 2023-06-12 00:00:00 Completed [facility] SARS-COV-2 COVID-19 VACCINE 12 YRS+, BIVALENT 0.5ML, IM, (MODERNA-BLUE TOP) 2023-06-12 00:00:00 Completed [facility] Pneumococcal 20 Conjugate, PCV20 (Prevnar 20) 2023-06-12 00:00:00 Completed [facility] Influenza Virus Vaccine 2023-06-12 00:00:00 Completed [facility] Pneumococcal 7 Conjugate, PCV7 (Prevnar7) 2023-06-12 00:00:00 Completed [facility] Influenza Virus Vaccine (3+ yrs) 2023-06-12 00:00:00 Completed [facility] Influenza Virus Vaccine Quad IM 3+ YRS 2023-06-12 00:00:00 Completed [facility] SARS-COV-2 COVID-19 MODERNA 12+ YRS VACCINE 2023-06-12 00:00:00 Completed [facility] Influenza Virus Vaccine,quad Im,preserve Free 65+ (FLUAD) 2023-06-12 00:00:00 Completed [facility] Pneumococcal 13 Conjugate, PCV13 (Prevnar 13) 2023-06-12 00:00:00 Completed [facility] SARS-COV-2 COVID-19 MODERNA 0.25ML BOOSTER VACCINE 2023-06-12 00:00:00 Completed [facility] SARS-COV-2 COVID-19 VACCINE 12 YRS+, BIVALENT 0.5ML, IM, (MODERNA-BLUE TOP) 2023-06-12 00:00:00 Completed [facility] Pneumococcal 20 Conjugate, PCV20 (Prevnar 20) 2023-06-12 00:00:00 Completed [facility] Influenza Virus Vaccine 2023-05-26 11:00:00 Completed [facility] Pneumococcal 7 Conjugate, PCV7 (Prevnar7) 2023-05-26 11:00:00 Completed [facility] Influenza Virus Vaccine (3+ yrs) 2023-05-26 11:00:00 Completed [facility] Influenza Virus Vaccine Quad IM 3+ YRS 2023-05-26 11:00:00 Completed [facility] SARS-COV-2 COVID-19 MODERNA 12+ YRS VACCINE 2023-05-26 11:00:00 Completed [facility] Influenza Virus Vaccine,quad Im,preserve Free 65+ (FLUAD) 2023-05-26 11:00:00 Completed [facility] Pneumococcal 13 Conjugate, PCV13 (Prevnar 13) 2023-05-26 11:00:00 Completed [facility] SARS-COV-2 COVID-19 MODERNA 0.25ML BOOSTER VACCINE 2023-05-26 11:00:00 Completed [facility] SARS-COV-2 COVID-19 VACCINE 12 YRS+, BIVALENT 0.5ML, IM, (MODERNA-BLUE TOP) 2023-05-26 11:00:00 Completed [facility] Pneumococcal 20 Conjugate, PCV20 (Prevnar 20) 2023-05-26 11:00:00 Completed [facility] Influenza Virus Vaccine 2023-05-26 10:00:00 Completed [facility] Pneumococcal 7 Conjugate, PCV7 (Prevnar7) 2023-05-26 10:00:00 Completed [facility] Influenza Virus Vaccine (3+ yrs) 2023-05-26 10:00:00 Completed [facility] Influenza Virus Vaccine Quad IM 3+ YRS 2023-05-26 10:00:00 Completed [facility] SARS-COV-2 COVID-19 MODERNA 12+ YRS VACCINE 2023-05-26 10:00:00 Completed [facility] Influenza Virus Vaccine,quad Im,preserve Free 65+ (FLUAD) 2023-05-26 10:00:00 Completed [facility] Pneumococcal 13 Conjugate, PCV13 (Prevnar 13) 2023-05-26 10:00:00 Completed [facility] SARS-COV-2 COVID-19 MODERNA 0.25ML BOOSTER VACCINE 2023-05-26 10:00:00 Completed [facility] SARS-COV-2 COVID-19 VACCINE 12 YRS+, BIVALENT 0.5ML, IM, (MODERNA-BLUE TOP) 2023-05-26 10:00:00 Completed [facility] Pneumococcal 20 Conjugate, PCV20 (Prevnar 20) 2023-05-26 10:00:00 Completed [facility] Pneumococcal 7 Conjugate, PCV7 (Prevnar7) 2023-05-23 11:30:00 Completed [facility] Influenza Virus Vaccine Quad IM 3+ YRS 2023-05-23 11:30:00 Completed [facility] Pneumococcal 13 Conjugate, PCV13 (Prevnar 13) 2023-05-23 11:30:00 Completed [facility] SARS-COV-2 COVID-19 MODERNA 0.25ML BOOSTER VACCINE 2023-05-23 11:30:00 Completed [facility] SARS-COV-2 COVID-19 VACCINE 12 YRS+, BIVALENT 0.5ML, IM, (MODERNA-BLUE TOP) 2023-05-23 11:30:00 Completed [facility] Pneumococcal 20 Conjugate, PCV20 (Prevnar 20) 2023-05-23 11:30:00 Completed [facility] Influenza Virus Vaccine 2023-05-23 11:30:00 Completed [facility] Influenza Virus Vaccine (3+ yrs) 2023-05-23 11:30:00 Completed [facility] SARS-COV-2 COVID-19 MODERNA 12+ YRS VACCINE 2023-05-23 11:30:00 Completed [facility] Influenza Virus Vaccine,quad Im,preserve Free 65+ (FLUAD) 2023-05-23 11:30:00 Completed [facility] Pneumococcal 7 Conjugate, PCV7 (Prevnar7) 2023-05-23 09:15:00 Completed [facility] Influenza Virus Vaccine Quad IM 3+ YRS 2023-05-23 09:15:00 Completed [facility] Pneumococcal 13 Conjugate, PCV13 (Prevnar 13) 2023-05-23 09:15:00 Completed [facility] SARS-COV-2 COVID-19 MODERNA 0.25ML BOOSTER VACCINE 2023-05-23 09:15:00 Completed [facility] SARS-COV-2 COVID-19 VACCINE 12 YRS+, BIVALENT 0.5ML, IM, (MODERNA-BLUE TOP) 2023-05-23 09:15:00 Completed [facility] Pneumococcal 20 Conjugate, PCV20 (Prevnar 20) 2023-05-23 09:15:00 Completed [facility] Influenza Virus Vaccine 2023-05-23 09:15:00 Completed [facility] Influenza Virus Vaccine (3+ yrs) 2023-05-23 09:15:00 Completed [facility] SARS-COV-2 COVID-19 MODERNA 12+ YRS VACCINE 2023-05-23 09:15:00 Completed [facility] Influenza Virus Vaccine,quad Im,preserve Free 65+ (FLUAD) 2023-05-23 09:15:00 Completed [facility] Influenza Virus Vaccine 2023-05-23 00:00:00 Completed [facility] Pneumococcal 7 Conjugate, PCV7 (Prevnar7) 2023-05-23 00:00:00 Completed [facility] Influenza Virus Vaccine (3+ yrs) 2023-05-23 00:00:00 Completed [facility] Influenza Virus Vaccine Quad IM 3+ YRS 2023-05-23 00:00:00 Completed [facility] SARS-COV-2 COVID-19 MODERNA 12+ YRS VACCINE 2023-05-23 00:00:00 Completed [facility] Influenza Virus Vaccine,quad Im,preserve Free 65+ (FLUAD) 2023-05-23 00:00:00 Completed [facility] Pneumococcal 13 Conjugate, PCV13 (Prevnar 13) 2023-05-23 00:00:00 Completed [facility] SARS-COV-2 COVID-19 MODERNA 0.25ML BOOSTER VACCINE 2023-05-23 00:00:00 Completed [facility] SARS-COV-2 COVID-19 VACCINE 12 YRS+, BIVALENT 0.5ML, IM, (MODERNA-BLUE TOP) 2023-05-23 00:00:00 Completed [facility] Pneumococcal 20 Conjugate, PCV20 (Prevnar 20) 2023-05-23 00:00:00 Completed [facility] Influenza Virus Vaccine 2023-05-02 10:30:00 Completed [facility] Pneumococcal 7 Conjugate, PCV7 (Prevnar7) 2023-05-02 10:30:00 Completed [facility] Influenza Virus Vaccine (3+ yrs) 2023-05-02 10:30:00 Completed [facility] Influenza Virus Vaccine Quad IM 3+ YRS 2023-05-02 10:30:00 Completed [facility] SARS-COV-2 COVID-19 MODERNA 12+ YRS VACCINE 2023-05-02 10:30:00 Completed [facility] Influenza Virus Vaccine,quad Im,preserve Free 65+ (FLUAD) 2023-05-02 10:30:00 Completed [facility] Pneumococcal 13 Conjugate, PCV13 (Prevnar 13) 2023-05-02 10:30:00 Completed [facility] SARS-COV-2 COVID-19 MODERNA 0.25ML BOOSTER VACCINE 2023-05-02 10:30:00 Completed [facility] SARS-COV-2 COVID-19 VACCINE 12 YRS+, BIVALENT 0.5ML, IM, (MODERNA-BLUE TOP) 2023-05-02 10:30:00 Completed [facility] Pneumococcal 20 Conjugate, PCV20 (Prevnar 20) 2023-05-02 10:30:00 Completed [facility] Influenza Virus Vaccine 2023-05-02 00:00:00 Completed [facility] Pneumococcal 7 Conjugate, PCV7 (Prevnar7) 2023-05-02 00:00:00 Completed [facility] Influenza Virus Vaccine (3+ yrs) 2023-05-02 00:00:00 Completed [facility] Influenza Virus Vaccine Quad IM 3+ YRS 2023-05-02 00:00:00 Completed [facility] SARS-COV-2 COVID-19 MODERNA 12+ YRS VACCINE 2023-05-02 00:00:00 Completed [facility] Influenza Virus Vaccine,quad Im,preserve Free 65+ (FLUAD) 2023-05-02 00:00:00 Completed [facility] Pneumococcal 13 Conjugate, PCV13 (Prevnar 13) 2023-05-02 00:00:00 Completed [facility] SARS-COV-2 COVID-19 MODERNA 0.25ML BOOSTER VACCINE 2023-05-02 00:00:00 Completed [facility] SARS-COV-2 COVID-19 VACCINE 12 YRS+, BIVALENT 0.5ML, IM, (MODERNA-BLUE TOP) 2023-05-02 00:00:00 Completed [facility] Pneumococcal 20 Conjugate, PCV20 (Prevnar 20) 2023-05-02 00:00:00 Completed [facility] Influenza Virus Vaccine 2023-04-24 00:00:00 Completed [facility] Pneumococcal 7 Conjugate, PCV7 (Prevnar7) 2023-04-24 00:00:00 Completed [facility] Influenza Virus Vaccine (3+ yrs) 2023-04-24 00:00:00 Completed [facility] Influenza Virus Vaccine Quad IM 3+ YRS 2023-04-24 00:00:00 Completed [facility] SARS-COV-2 COVID-19 MODERNA 12+ YRS VACCINE 2023-04-24 00:00:00 Completed [facility] Influenza Virus Vaccine,quad Im,preserve Free 65+ (FLUAD) 2023-04-24 00:00:00 Completed [facility] Pneumococcal 13 Conjugate, PCV13 (Prevnar 13) 2023-04-24 00:00:00 Completed [facility] SARS-COV-2 COVID-19 MODERNA 0.25ML BOOSTER VACCINE 2023-04-24 00:00:00 Completed [facility] SARS-COV-2 COVID-19 VACCINE 12 YRS+, BIVALENT 0.5ML, IM, (MODERNA-BLUE TOP) 2023-04-24 00:00:00 Completed [facility] Pneumococcal 20 Conjugate, PCV20 (Prevnar 20) 2023-04-24 00:00:00 Completed [facility] Influenza Virus Vaccine 2023-03-28 10:15:00 Completed [facility] Pneumococcal 7 Conjugate, PCV7 (Prevnar7) 2023-03-28 10:15:00 Completed [facility] Influenza Virus Vaccine (3+ yrs) 2023-03-28 10:15:00 Completed [facility] Influenza Virus Vaccine Quad IM 3+ YRS 2023-03-28 10:15:00 Completed [facility] SARS-COV-2 COVID-19 MODERNA 12+ YRS VACCINE 2023-03-28 10:15:00 Completed [facility] Influenza Virus Vaccine,quad Im,preserve Free 65+ (FLUAD) 2023-03-28 10:15:00 Completed [facility] Pneumococcal 13 Conjugate, PCV13 (Prevnar 13) 2023-03-28 10:15:00 Completed [facility] SARS-COV-2 COVID-19 MODERNA 0.25ML BOOSTER VACCINE 2023-03-28 10:15:00 Completed [facility] SARS-COV-2 COVID-19 VACCINE 12 YRS+, BIVALENT 0.5ML, IM, (MODERNA-BLUE TOP) 2023-03-28 10:15:00 Completed [facility] Pneumococcal 20 Conjugate, PCV20 (Prevnar 20) 2023-03-28 10:15:00 Completed [facility] Influenza Virus Vaccine 2023-03-28 00:00:00 Completed [facility] Pneumococcal 7 Conjugate, PCV7 (Prevnar7) 2023-03-28 00:00:00 Completed [facility] Influenza Virus Vaccine (3+ yrs) 2023-03-28 00:00:00 Completed [facility] Influenza Virus Vaccine Quad IM 3+ YRS 2023-03-28 00:00:00 Completed [facility] SARS-COV-2 COVID-19 MODERNA 12+ YRS VACCINE 2023-03-28 00:00:00 Completed [facility] Influenza Virus Vaccine,quad Im,preserve Free 65+ (FLUAD) 2023-03-28 00:00:00 Completed [facility] Pneumococcal 13 Conjugate, PCV13 (Prevnar 13) 2023-03-28 00:00:00 Completed [facility] SARS-COV-2 COVID-19 MODERNA 0.25ML BOOSTER VACCINE 2023-03-28 00:00:00 Completed [facility] SARS-COV-2 COVID-19 VACCINE 12 YRS+, BIVALENT 0.5ML, IM, (MODERNA-BLUE TOP) 2023-03-28 00:00:00 Completed [facility] Pneumococcal 20 Conjugate, PCV20 (Prevnar 20) 2023-03-28 00:00:00 Completed [facility] Influenza Virus Vaccine 2023-03-17 00:00:00 Completed [facility] Pneumococcal 7 Conjugate, PCV7 (Prevnar7) 2023-03-17 00:00:00 Completed [facility] Influenza Virus Vaccine (3+ yrs) 2023-03-17 00:00:00 Completed [facility] Influenza Virus Vaccine Quad IM 3+ YRS 2023-03-17 00:00:00 Completed [facility] SARS-COV-2 COVID-19 MODERNA 12+ YRS VACCINE 2023-03-17 00:00:00 Completed [facility] Influenza Virus Vaccine,quad Im,preserve Free 65+ (FLUAD) 2023-03-17 00:00:00 Completed [facility] Pneumococcal 13 Conjugate, PCV13 (Prevnar 13) 2023-03-17 00:00:00 Completed [facility] SARS-COV-2 COVID-19 MODERNA 0.25ML BOOSTER VACCINE 2023-03-17 00:00:00 Completed [facility] SARS-COV-2 COVID-19 VACCINE 12 YRS+, BIVALENT 0.5ML, IM, (MODERNA-BLUE TOP) 2023-03-17 00:00:00 Completed [facility] Pneumococcal 20 Conjugate, PCV20 (Prevnar 20) 2023-03-17 00:00:00 Completed [facility] Influenza Virus Vaccine 2023-03-17 00:00:00 Completed [facility] Pneumococcal 7 Conjugate, PCV7 (Prevnar7) 2023-03-17 00:00:00 Completed [facility] Influenza Virus Vaccine (3+ yrs) 2023-03-17 00:00:00 Completed [facility] Influenza Virus Vaccine Quad IM 3+ YRS 2023-03-17 00:00:00 Completed [facility] SARS-COV-2 COVID-19 MODERNA 12+ YRS VACCINE 2023-03-17 00:00:00 Completed [facility] Influenza Virus Vaccine,quad Im,preserve Free 65+ (FLUAD) 2023-03-17 00:00:00 Completed [facility] Pneumococcal 13 Conjugate, PCV13 (Prevnar 13) 2023-03-17 00:00:00 Completed [facility] SARS-COV-2 COVID-19 MODERNA 0.25ML BOOSTER VACCINE 2023-03-17 00:00:00 Completed [facility] SARS-COV-2 COVID-19 VACCINE 12 YRS+, BIVALENT 0.5ML, IM, (MODERNA-BLUE TOP) 2023-03-17 00:00:00 Completed [facility] Pneumococcal 20 Conjugate, PCV20 (Prevnar 20) 2023-03-17 00:00:00 Completed [facility] Influenza Virus Vaccine 2023-03-13 09:45:00 Completed [facility] Pneumococcal 7 Conjugate, PCV7 (Prevnar7) 2023-03-13 09:45:00 Completed [facility] Influenza Virus Vaccine (3+ yrs) 2023-03-13 09:45:00 Completed [facility] Influenza Virus Vaccine Quad IM 3+ YRS 2023-03-13 09:45:00 Completed [facility] SARS-COV-2 COVID-19 MODERNA 12+ YRS VACCINE 2023-03-13 09:45:00 Completed [facility] Influenza Virus Vaccine,quad Im,preserve Free 65+ (FLUAD) 2023-03-13 09:45:00 Completed [facility] Pneumococcal 13 Conjugate, PCV13 (Prevnar 13) 2023-03-13 09:45:00 Completed [facility] SARS-COV-2 COVID-19 MODERNA 0.25ML BOOSTER VACCINE 2023-03-13 09:45:00 Completed [facility] SARS-COV-2 COVID-19 VACCINE 12 YRS+, BIVALENT 0.5ML, IM, (MODERNA-BLUE TOP) 2023-03-13 09:45:00 Completed [facility] Pneumococcal 20 Conjugate, PCV20 (Prevnar 20) 2023-03-13 09:45:00 Completed [facility] Influenza Virus Vaccine 2023-03-12 00:00:00 Completed [facility] Pneumococcal 7 Conjugate, PCV7 (Prevnar7) 2023-03-12 00:00:00 Completed [facility] Influenza Virus Vaccine (3+ yrs) 2023-03-12 00:00:00 Completed [facility] Influenza Virus Vaccine Quad IM 3+ YRS 2023-03-12 00:00:00 Completed [facility] SARS-COV-2 COVID-19 MODERNA 12+ YRS VACCINE 2023-03-12 00:00:00 Completed [facility] Influenza Virus Vaccine,quad Im,preserve Free 65+ (FLUAD) 2023-03-12 00:00:00 Completed [facility] Pneumococcal 13 Conjugate, PCV13 (Prevnar 13) 2023-03-12 00:00:00 Completed [facility] SARS-COV-2 COVID-19 MODERNA 0.25ML BOOSTER VACCINE 2023-03-12 00:00:00 Completed [facility] SARS-COV-2 COVID-19 VACCINE 12 YRS+, BIVALENT 0.5ML, IM, (MODERNA-BLUE TOP) 2023-03-12 00:00:00 Completed [facility] Pneumococcal 20 Conjugate, PCV20 (Prevnar 20) 2023-03-12 00:00:00 Completed [facility] Pneumococcal 7 Conjugate, PCV7 (Prevnar7) 2023-02-24 10:30:00 Completed [facility] Influenza Virus Vaccine (3+ yrs) 2023-02-24 10:30:00 Completed [facility] Influenza Virus Vaccine 2023-02-24 10:30:00 Completed [facility] Influenza Virus Vaccine Quad IM 3+ YRS 2023-02-24 10:30:00 Completed [facility] SARS-COV-2 COVID-19 MODERNA 12+ YRS VACCINE 2023-02-24 10:30:00 Completed [facility] Influenza Virus Vaccine,quad Im,preserve Free 65+ (FLUAD) 2023-02-24 10:30:00 Completed [facility] Pneumococcal 13 Conjugate, PCV13 (Prevnar 13) 2023-02-24 10:30:00 Completed [facility] SARS-COV-2 COVID-19 MODERNA 0.25ML BOOSTER VACCINE 2023-02-24 10:30:00 Completed [facility] SARS-COV-2 COVID-19 VACCINE 12 YRS+, BIVALENT 0.5ML, IM, (MODERNA-BLUE TOP) 2023-02-24 10:30:00 Completed [facility] Pneumococcal 20 Conjugate, PCV20 (Prevnar 20) 2023-02-24 10:30:00 Completed [facility] Pneumococcal 7 Conjugate, PCV7 (Prevnar7) 2023-02-24 00:00:00 Completed [facility] Influenza Virus Vaccine (3+ yrs) 2023-02-24 00:00:00 Completed [facility] Influenza Virus Vaccine 2023-02-24 00:00:00 Completed [facility] Influenza Virus Vaccine Quad IM 3+ YRS 2023-02-24 00:00:00 Completed [facility] SARS-COV-2 COVID-19 MODERNA 12+ YRS VACCINE 2023-02-24 00:00:00 Completed [facility] Influenza Virus Vaccine,quad Im,preserve Free 65+ (FLUAD) 2023-02-24 00:00:00 Completed [facility] Pneumococcal 13 Conjugate, PCV13 (Prevnar 13) 2023-02-24 00:00:00 Completed [facility] SARS-COV-2 COVID-19 MODERNA 0.25ML BOOSTER VACCINE 2023-02-24 00:00:00 Completed [facility] SARS-COV-2 COVID-19 VACCINE 12 YRS+, BIVALENT 0.5ML, IM, (MODERNA-BLUE TOP) 2023-02-24 00:00:00 Completed [facility] Pneumococcal 20 Conjugate, PCV20 (Prevnar 20) 2023-02-24 00:00:00 Completed [facility] Pneumococcal 7 Conjugate, PCV7 (Prevnar7) 2023-02-19 10:30:00 Completed [facility] Influenza Virus Vaccine (3+ yrs) 2023-02-19 10:30:00 Completed [facility] Influenza Virus Vaccine 2023-02-19 10:30:00 Completed [facility] Influenza Virus Vaccine Quad IM 3+ YRS 2023-02-19 10:30:00 Completed [facility] SARS-COV-2 COVID-19 MODERNA 12+ YRS VACCINE 2023-02-19 10:30:00 Completed [facility] Influenza Virus Vaccine,quad Im,preserve Free 65+ (FLUAD) 2023-02-19 10:30:00 Completed [facility] Pneumococcal 13 Conjugate, PCV13 (Prevnar 13) 2023-02-19 10:30:00 Completed [facility] SARS-COV-2 COVID-19 MODERNA 0.25ML BOOSTER VACCINE 2023-02-19 10:30:00 Completed [facility] SARS-COV-2 COVID-19 VACCINE 12 YRS+, BIVALENT 0.5ML, IM, (MODERNA-BLUE TOP) 2023-02-19 10:30:00 Completed [facility] Pneumococcal 20 Conjugate, PCV20 (Prevnar 20) 2023-02-19 10:30:00 Completed [facility] Pneumococcal 7 Conjugate, PCV7 (Prevnar7) 2023-02-19 10:00:00 Completed [facility] Influenza Virus Vaccine Quad IM 3+ YRS 2023-02-19 10:00:00 Completed [facility] Pneumococcal 13 Conjugate, PCV13 (Prevnar 13) 2023-02-19 10:00:00 Completed [facility] SARS-COV-2 COVID-19 MODERNA 0.25ML BOOSTER VACCINE 2023-02-19 10:00:00 Completed [facility] SARS-COV-2 COVID-19 VACCINE 12 YRS+, BIVALENT 0.5ML, IM, (MODERNA-BLUE TOP) 2023-02-19 10:00:00 Completed [facility] Pneumococcal 20 Conjugate, PCV20 (Prevnar 20) 2023-02-19 10:00:00 Completed [facility] Influenza Virus Vaccine 2023-02-19 10:00:00 Completed [facility] Influenza Virus Vaccine (3+ yrs) 2023-02-19 10:00:00 Completed [facility] SARS-COV-2 COVID-19 MODERNA 12+ YRS VACCINE 2023-02-19 10:00:00 Completed [facility] Influenza Virus Vaccine,quad Im,preserve Free 65+ (FLUAD) 2023-02-19 10:00:00 Completed [facility] Pneumococcal 7 Conjugate, PCV7 (Prevnar7) 2023-02-19 00:00:00 Completed [facility] Influenza Virus Vaccine 2023-02-19 00:00:00 Completed [facility] Influenza Virus Vaccine Quad IM 3+ YRS 2023-02-19 00:00:00 Completed [facility] SARS-COV-2 COVID-19 MODERNA 12+ YRS VACCINE 2023-02-19 00:00:00 Completed [facility] Influenza Virus Vaccine,quad Im,preserve Free 65+ (FLUAD) 2023-02-19 00:00:00 Completed [facility] Pneumococcal 13 Conjugate, PCV13 (Prevnar 13) 2023-02-19 00:00:00 Completed [facility] SARS-COV-2 COVID-19 MODERNA 0.25ML BOOSTER VACCINE 2023-02-19 00:00:00 Completed [facility] SARS-COV-2 COVID-19 VACCINE 12 YRS+, BIVALENT 0.5ML, IM, (MODERNA-BLUE TOP) 2023-02-19 00:00:00 Completed [facility] Pneumococcal 20 Conjugate, PCV20 (Prevnar 20) 2023-02-19 00:00:00 Completed [facility] Influenza Virus Vaccine (3+ yrs) 2023-02-19 00:00:00 Completed [facility] Influenza, High-Dose, Trivalent, PF (FLUZONE) 2023-02-03 00:00:00 Completed Influenza Virus Vaccine 2023-01-27 14:30:00 Completed [facility] Influenza Virus Vaccine Quad IM 3+ YRS 2023-01-27 14:30:00 Completed [facility] SARS-COV-2 COVID-19 MODERNA 12+ YRS VACCINE 2023-01-27 14:30:00 Completed [facility] Influenza Virus Vaccine,quad Im,preserve Free 65+ (FLUAD) 2023-01-27 14:30:00 Completed [facility] Pneumococcal 13 Conjugate, PCV13 (Prevnar 13) 2023-01-27 14:30:00 Completed [facility] SARS-COV-2 COVID-19 MODERNA 0.25ML BOOSTER VACCINE 2023-01-27 14:30:00 Completed [facility] SARS-COV-2 COVID-19 VACCINE 12 YRS+, BIVALENT 0.5ML, IM, (MODERNA-BLUE TOP) 2023-01-27 14:30:00 Completed [facility] Pneumococcal 20 Conjugate, PCV20 (Prevnar 20) 2023-01-27 14:30:00 Completed [facility] Pneumococcal 7 Conjugate, PCV7 (Prevnar7) 2023-01-27 14:30:00 Completed [facility] Influenza Virus Vaccine (3+ yrs) 2023-01-27 14:30:00 Completed [facility] Pneumococcal 7 Conjugate, PCV7 (Prevnar7) 2023-01-21 00:00:00 Completed [facility] Influenza Virus Vaccine (3+ yrs) 2023-01-21 00:00:00 Completed [facility] Influenza Virus Vaccine 2023-01-21 00:00:00 Completed [facility] Influenza Virus Vaccine Quad IM 3+ YRS 2023-01-21 00:00:00 Completed [facility] SARS-COV-2 COVID-19 MODERNA 12+ YRS VACCINE 2023-01-21 00:00:00 Completed [facility] Influenza Virus Vaccine,quad Im,preserve Free 65+ (FLUAD) 2023-01-21 00:00:00 Completed [facility] Pneumococcal 13 Conjugate, PCV13 (Prevnar 13) 2023-01-21 00:00:00 Completed [facility] SARS-COV-2 COVID-19 MODERNA 0.25ML BOOSTER VACCINE 2023-01-21 00:00:00 Completed [facility] SARS-COV-2 COVID-19 VACCINE 12 YRS+, BIVALENT 0.5ML, IM, (MODERNA-BLUE TOP) 2023-01-21 00:00:00 Completed [facility] Pneumococcal 20 Conjugate, PCV20 (Prevnar 20) 2023-01-21 00:00:00 Completed [facility] Pneumococcal 7 Conjugate, PCV7 (Prevnar7) 2023-01-14 00:00:00 Completed [facility] Influenza Virus Vaccine (3+ yrs) 2023-01-14 00:00:00 Completed [facility] Influenza Virus Vaccine 2023-01-14 00:00:00 Completed [facility] Influenza Virus Vaccine Quad IM 3+ YRS 2023-01-14 00:00:00 Completed [facility] SARS-COV-2 COVID-19 MODERNA 12+ YRS VACCINE 2023-01-14 00:00:00 Completed [facility] Influenza Virus Vaccine,quad Im,preserve Free 65+ (FLUAD) 2023-01-14 00:00:00 Completed [facility] Pneumococcal 13 Conjugate, PCV13 (Prevnar 13) 2023-01-14 00:00:00 Completed [facility] SARS-COV-2 COVID-19 MODERNA 0.25ML BOOSTER VACCINE 2023-01-14 00:00:00 Completed [facility] SARS-COV-2 COVID-19 VACCINE 12 YRS+, BIVALENT 0.5ML, IM, (MODERNA-BLUE TOP) 2023-01-14 00:00:00 Completed [facility] Pneumococcal 20 Conjugate, PCV20 (Prevnar 20) 2023-01-14 00:00:00 Completed [facility] Pneumococcal 20 Conjugate, PCV20 (Prevnar 20) 2022-10-21 00:00:00 Completed [facility] Pneumococcal 20 Conjugate, PCV20 (Prevnar 20) 2022-10-21 00:00:00 Completed [facility] Pneumococcal 20 Conjugate, PCV20 (Prevnar 20) 2022-10-21 00:00:00 Completed [facility] Pneumococcal 20 Conjugate, PCV20 (Prevnar 20) 2022-10-21 00:00:00 Completed [facility] Pneumococcal 20 Conjugate, PCV20 (Prevnar 20) 2022-10-21 00:00:00 Completed [facility] Pneumococcal 20 Conjugate, PCV20 (Prevnar 20) 2022-10-21 00:00:00 Completed [facility] Pneumococcal 20 Conjugate, PCV20 (Prevnar 20) 2022-10-21 00:00:00 Completed [facility] Pneumococcal 20 Conjugate, PCV20 (Prevnar 20) 2022-10-21 00:00:00 Completed [facility] Pneumococcal 20 Conjugate, PCV20 (Prevnar 20) 2022-10-21 00:00:00 Completed [facility] Pneumococcal 20 Conjugate, PCV20 (Prevnar 20) 2022-10-21 00:00:00 Completed [facility] Pneumococcal 20 Conjugate, PCV20 (Prevnar 20) 2022-10-21 00:00:00 Completed [facility] Pneumococcal 20 Conjugate, PCV20 (Prevnar 20) 2022-10-21 00:00:00 Completed [facility] Influenza Virus Vaccine,quad Im,preserve Free 65+ 2022-04-01 00:00:00 Completed [facility] Influenza Virus Vaccine,quad Im,preserve Free 65+ 2022-04-01 00:00:00 Completed [facility] Influenza Virus Vaccine,quad Im,preserve Free 652022-04-01 00:00:00 Completed [facility] Influenza Virus Vaccine,quad Im,preserve Free 65+ 2022-04-01 00:00:00 Completed [facility] Influenza Virus Vaccine,quad Im,preserve Free 652022-04-01 00:00:00 Completed [facility] Influenza Virus Vaccine,quad Im,preserve Free 652022-04-01 00:00:00 Completed [facility] Influenza Virus Vaccine,quad Im,preserve Free 652022-04-01 00:00:00 Completed [facility] Influenza Virus Vaccine,quad Im,preserve Free 652022-04-01 00:00:00 Completed [facility] Influenza Virus Vaccine,quad Im,preserve Free 652022-04-01 00:00:00 Completed [facility] Influenza Virus Vaccine,quad Im,preserve Free 652022-04-01 00:00:00 Completed [facility] Influenza Virus Vaccine,quad Im,preserve Free 652022-04-01 00:00:00 Completed [facility] Influenza Virus Vaccine,quad Im,preserve Free 652022-04-01 00:00:00 Completed [facility] Influenza Virus Vaccine,quad Im,preserve Free 652022-04-01 00:00:00 Completed [facility] Influenza Virus Vaccine,quad Im,preserve Free 652022-04-01 00:00:00 Completed [facility] Influenza Virus Vaccine,quad Im,preserve Free 652022-04-01 00:00:00 Completed [facility] Influenza Virus Vaccine,quad Im,preserve Free 652022-04-01 00:00:00 Completed [facility] Influenza Virus Vaccine,quad Im,preserve Free 652022-04-01 00:00:00 Completed [facility] Influenza Virus Vaccine,quad Im,preserve Free 652022-04-01 00:00:00 Completed [facility] Influenza Virus Vaccine,quad Im,preserve Free 652022-04-01 00:00:00 Completed [facility] Influenza Virus Vaccine,quad Im,preserve Free 652022-04-01 00:00:00 Completed [facility] Influenza Virus Vaccine,quad Im,preserve Free 652022-04-01 00:00:00 Completed [facility] Influenza Virus Vaccine,quad Im,preserve Free 652022-04-01 00:00:00 Completed [facility] Influenza Virus Vaccine,quad Im,preserve Free 2022-04-01 00:00:00 Completed [facility] Influenza Virus Vaccine,quad Im,preserve Free 652022-04-01 00:00:00 Completed [facility] Influenza Virus Vaccine,quad Im,preserve Free 2022-04-01 00:00:00 Completed [facility] Influenza Virus Vaccine,quad Im,preserve Free 2022-04-01 00:00:00 Completed [facility] Influenza Virus Vaccine,quad Im,preserve Free 2022-04-01 00:00:00 Completed [facility] Influenza Virus Vaccine,quad Im,preserve Free 2022-04-01 00:00:00 Completed [facility] Influenza Virus Vaccine,quad Im,preserve Free 652022-04-01 00:00:00 Completed [facility] Influenza Virus Vaccine,quad Im,preserve Free 652022-04-01 00:00:00 Completed [facility] Influenza Virus Vaccine,quad Im,preserve Free 652022-04-01 00:00:00 Completed [facility] Influenza Virus Vaccine,quad Im,preserve Free 2022-04-01 00:00:00 Completed [facility] Influenza Virus Vaccine,quad Im,preserve Free 65+ 2022-04-01 00:00:00 Completed [facility] Influenza Virus Vaccine,quad Im,preserve Free 652022-04-01 00:00:00 Completed [facility] Influenza Virus Vaccine,quad Im,preserve Free 2022-04-01 00:00:00 Completed [facility] Influenza Virus Vaccine,quad Im,preserve Free 2022-04-01 00:00:00 Completed [facility] Influenza Virus Vaccine,quad Im,preserve Free 652022-04-01 00:00:00 Completed [facility] Influenza Virus Vaccine,quad Im,preserve Free 652022-04-01 00:00:00 Completed [facility] Influenza Virus Vaccine,quad Im,preserve Free 2022-04-01 00:00:00 Completed [facility] Influenza Virus Vaccine,quad Im,preserve Free 2022-04-01 00:00:00 Completed [facility] Influenza Virus Vaccine,quad Im,preserve Free 2022-04-01 00:00:00 Completed [facility] Influenza Virus Vaccine,quad Im,preserve Free 2022-04-01 00:00:00 Completed [facility] Influenza Virus Vaccine,quad Im,preserve Free 2022-04-01 00:00:00 Completed [facility] Influenza Virus Vaccine,quad Im,preserve Free 2022-04-01 00:00:00 Completed [facility] Influenza Virus Vaccine,quad Im,preserve Free 2022-04-01 00:00:00 Completed [facility] Influenza Virus Vaccine,quad Im,preserve Free 2022-04-01 00:00:00 Completed [facility] Influenza Virus Vaccine,quad Im,preserve Free 2022-04-01 00:00:00 Completed [facility] Influenza Virus Vaccine,quad Im,preserve Free 2022-04-01 00:00:00 Completed [facility] Influenza Virus Vaccine,quad Im,preserve Free 2022-04-01 00:00:00 Completed [facility] Influenza Virus Vaccine,quad Im,preserve Free 2022-04-01 00:00:00 Completed [facility] Influenza Virus Vaccine,quad Im,preserve Free 65+ 2022-04-01 00:00:00 Completed [facility] Influenza Virus Vaccine,quad Im,preserve Free 65+ 2022-04-01 00:00:00 Completed [facility] Influenza Virus Vaccine,quad Im,preserve Free 65+ 2022-04-01 00:00:00 Completed [facility] Influenza Virus Vaccine,quad Im,preserve Free 65+ 2022-04-01 00:00:00 Completed [facility] Influenza Virus Vaccine,quad Im,preserve Free 65+ (FLUAD) 2022-04-01 00:00:00 Completed [facility] Influenza Virus Vaccine,quad Im,preserve Free 65+ (FLUAD) 2022-04-01 00:00:00 Completed [facility] Influenza Virus Vaccine,quad Im,preserve Free 65+ (FLUAD) 2022-04-01 00:00:00 Completed [facility] Influenza Virus Vaccine,quad Im,preserve Free 65+ (FLUAD) 2022-04-01 00:00:00 Completed [facility] SARS-COV-2 COVID-19 VACCINE 18 YRS+, BIVALENT 0.5ML, IM, (MODERNA BOOSTER) 2022-02-04 00:00:00 Completed [facility] SARS-COV-2 COVID-19 VACCINE 18 YRS+, BIVALENT 0.5ML, IM, (MODERNA BOOSTER) 2022-02-04 00:00:00 Completed [facility] SARS-COV-2 COVID-19 VACCINE 18 YRS+, BIVALENT 0.5ML, IM, (MODERNA BOOSTER) 2022-02-04 00:00:00 Completed [facility] SARS-COV-2 COVID-19 VACCINE 12 YRS+, BIVALENT 0.5ML, IM, (MODERNA BOOSTER) 2022-02-04 00:00:00 Completed [facility] SARS-COV-2 COVID-19 VACCINE 12 YRS+, BIVALENT 0.5ML, IM, (MODERNA BOOSTER) 2022-02-04 00:00:00 Completed [facility] SARS-COV-2 COVID-19 VACCINE 12 YRS+, BIVALENT 0.5ML, IM, (MODERNA BOOSTER) 2022-02-04 00:00:00 Completed [facility] SARS-COV-2 COVID-19 VACCINE 12 YRS+, BIVALENT 0.5ML, IM, (MODERNA BOOSTER) 2022-02-04 00:00:00 Completed [facility] SARS-COV-2 COVID-19 VACCINE 12 YRS+, BIVALENT 0.5ML, IM, (MODERNA BOOSTER) 2022-02-04 00:00:00 Completed [facility] SARS-COV-2 COVID-19 VACCINE 12 YRS+, BIVALENT 0.5ML, IM, (MODERNA BOOSTER) 2022-02-04 00:00:00 Completed [facility] SARS-COV-2 COVID-19 VACCINE 12 YRS+, BIVALENT 0.5ML, IM, (MODERNA BOOSTER) 2022-02-04 00:00:00 Completed [facility] SARS-COV-2 COVID-19 VACCINE 12 YRS+, BIVALENT 0.5ML, IM, (MODERNA BOOSTER) 2022-02-04 00:00:00 Completed [facility] SARS-COV-2 COVID-19 VACCINE 12 YRS+, BIVALENT 0.5ML, IM, (MODERNA BOOSTER) 2022-02-04 00:00:00 Completed [facility] SARS-COV-2 COVID-19 VACCINE 12 YRS+, BIVALENT 0.5ML, IM, (MODERNA BOOSTER) 2022-02-04 00:00:00 Completed [facility] SARS-COV-2 COVID-19 VACCINE 12 YRS+, BIVALENT 0.5ML, IM, (MODERNA BOOSTER) 2022-02-04 00:00:00 Completed [facility] SARS-COV-2 COVID-19 VACCINE 12 YRS+, BIVALENT 0.5ML, IM, (MODERNA BOOSTER) 2022-02-04 00:00:00 Completed [facility] SARS-COV-2 COVID-19 VACCINE 12 YRS+, BIVALENT 0.5ML, IM, (MODERNA BOOSTER) 2022-02-04 00:00:00 Completed [facility] SARS-COV-2 COVID-19 VACCINE 12 YRS+, BIVALENT 0.5ML, IM, (MODERNA BOOSTER) 2022-02-04 00:00:00 Completed [facility] SARS-COV-2 COVID-19 VACCINE 12 YRS+, BIVALENT 0.5ML, IM, (MODERNA BOOSTER) 2022-02-04 00:00:00 Completed [facility] SARS-COV-2 COVID-19 VACCINE 12 YRS+, BIVALENT 0.5ML, IM, (MODERNA BOOSTER) 2022-02-04 00:00:00 Completed [facility] SARS-COV-2 COVID-19 VACCINE 12 YRS+, BIVALENT 0.5ML, IM, (MODERNA BOOSTER) 2022-02-04 00:00:00 Completed [facility] SARS-COV-2 COVID-19 VACCINE 12 YRS+, BIVALENT 0.5ML, IM, (MODERNA BOOSTER) 2022-02-04 00:00:00 Completed [facility] SARS-COV-2 COVID-19 VACCINE 12 YRS+, BIVALENT 0.5ML, IM, (MODERNA BOOSTER) 2022-02-04 00:00:00 Completed [facility] SARS-COV-2 COVID-19 VACCINE 12 YRS+, BIVALENT 0.5ML, IM, (MODERNA BOOSTER) 2022-02-04 00:00:00 Completed [facility] SARS-COV-2 COVID-19 VACCINE 12 YRS+, BIVALENT 0.5ML, IM, (MODERNA BOOSTER) 2022-02-04 00:00:00 Completed [facility] SARS-COV-2 COVID-19 VACCINE 12 YRS+, BIVALENT 0.5ML, IM, (MODERNA BOOSTER) 2022-02-04 00:00:00 Completed [facility] SARS-COV-2 COVID-19 VACCINE 12 YRS+, BIVALENT 0.5ML, IM, (MODERNA BOOSTER) 2022-02-04 00:00:00 Completed [facility] SARS-COV-2 COVID-19 VACCINE 12 YRS+, BIVALENT 0.5ML, IM, (MODERNA BOOSTER) 2022-02-04 00:00:00 Completed [facility] SARS-COV-2 COVID-19 VACCINE 12 YRS+, BIVALENT 0.5ML, IM, (MODERNA BOOSTER) 2022-02-04 00:00:00 Completed [facility] SARS-COV-2 COVID-19 VACCINE 12 YRS+, BIVALENT 0.5ML, IM, (MODERNA BOOSTER) 2022-02-04 00:00:00 Completed [facility] SARS-COV-2 COVID-19 VACCINE 12 YRS+, BIVALENT 0.5ML, IM, (MODERNA BOOSTER) 2022-02-04 00:00:00 Completed [facility] SARS-COV-2 COVID-19 VACCINE 12 YRS+, BIVALENT 0.5ML, IM, (MODERNA BOOSTER) 2022-02-04 00:00:00 Completed [facility] SARS-COV-2 COVID-19 VACCINE 12 YRS+, BIVALENT 0.5ML, IM, (MODERNA BOOSTER) 2022-02-04 00:00:00 Completed [facility] SARS-COV-2 COVID-19 VACCINE 12 YRS+, BIVALENT 0.5ML, IM, (MODERNA BOOSTER) 2022-02-04 00:00:00 Completed [facility] SARS-COV-2 COVID-19 VACCINE 13 YRS+, BIVALENT 0.5ML, IM, (MODERNA BOOSTER) 2022-02-04 00:00:00 Completed [facility] SARS-COV-2 COVID-19 VACCINE 12 YRS+, BIVALENT 0.5ML, IM, (MODERNA BOOSTER) 2022-02-04 00:00:00 Completed [facility] SARS-COV-2 COVID-19 VACCINE 12 YRS+, BIVALENT 0.5ML, IM, (MODERNA BOOSTER) 2022-02-04 00:00:00 Completed [facility] SARS-COV-2 COVID-19 VACCINE 12 YRS+, BIVALENT 0.5ML, IM, (MODERNA BOOSTER) 2022-02-04 00:00:00 Completed [facility] SARS-COV-2 COVID-19 VACCINE 12 YRS+, BIVALENT 0.5ML, IM, (MODERNA BOOSTER) 2022-02-04 00:00:00 Completed [facility] SARS-COV-2 COVID-19 VACCINE 12 YRS+, BIVALENT 0.5ML, IM, (MODERNA BOOSTER) 2022-02-04 00:00:00 Completed [facility] SARS-COV-2 COVID-19 VACCINE 12 YRS+, BIVALENT 0.5ML, IM, (MODERNA BOOSTER) 2022-02-04 00:00:00 Completed [facility] SARS-COV-2 COVID-19 VACCINE 12 YRS+, BIVALENT 0.5ML, IM, (MODERNA BOOSTER) 2022-02-04 00:00:00 Completed [facility] SARS-COV-2 COVID-19 VACCINE 12 YRS+, BIVALENT 0.5ML, IM, (MODERNA BOOSTER) 2022-02-04 00:00:00 Completed [facility] SARS-COV-2 COVID-19 VACCINE 12 YRS+, BIVALENT 0.5ML, IM, (MODERNA BOOSTER) 2022-02-04 00:00:00 Completed [facility] SARS-COV-2 COVID-19 VACCINE 12 YRS+, BIVALENT 0.5ML, IM, (MODERNA BOOSTER) 2022-02-04 00:00:00 Completed [facility] SARS-COV-2 COVID-19 VACCINE 12 YRS+, BIVALENT 0.5ML, IM, (MODERNA BOOSTER) 2022-02-04 00:00:00 Completed [facility] SARS-COV-2 COVID-19 VACCINE 12 YRS+, BIVALENT 0.5ML, IM, (MODERNA BOOSTER) 2022-02-04 00:00:00 Completed [facility] SARS-COV-2 COVID-19 VACCINE 12 YRS+, BIVALENT 0.5ML, IM, (MODERNA BOOSTER) 2022-02-04 00:00:00 Completed [facility] SARS-COV-2 COVID-19 VACCINE 12 YRS+, BIVALENT 0.5ML, IM, (MODERNA) 2022-02-04 00:00:00 Completed [facility] SARS-COV-2 COVID-19 VACCINE 12 YRS+, BIVALENT 0.5ML, IM, (MODERNA) 2022-02-04 00:00:00 Completed [facility] SARS-COV-2 COVID-19 VACCINE 12 YRS+, BIVALENT 0.5ML, IM, (MODERNA) 2022-02-04 00:00:00 Completed [facility] SARS-COV-2 COVID-19 VACCINE 12 YRS+, BIVALENT 0.5ML, IM, (MODERNA-BLUE TOP) 2022-02-04 00:00:00 Completed [facility] SARS-COV-2 COVID-19 VACCINE 12 YRS+, BIVALENT 0.5ML, IM, (MODERNA-BLUE TOP) 2022-02-04 00:00:00 Completed [facility] SARS-COV-2 COVID-19 VACCINE 12 YRS+, BIVALENT 0.5ML, IM, (MODERNA-BLUE TOP) 2022-02-04 00:00:00 Completed [facility] SARS-COV-2 COVID-19 VACCINE 12 YRS+, BIVALENT 0.5ML, IM, (MODERNA-BLUE TOP) 2022-02-04 00:00:00 Completed [facility] SARS-COV-2 COVID-19 VACCINE 12 YRS+, BIVALENT 0.5ML, IM, (MODERNA-BLUE TOP) 2022-02-04 00:00:00 Completed [facility] SARS-COV-2 COVID-19 VACCINE 12 YRS+, BIVALENT 0.5ML, IM, (MODERNA-BLUE TOP) 2022-02-04 00:00:00 Completed [facility] SARS-COV-2 COVID-19 VACCINE 12 YRS+, BIVALENT 0.5ML, IM, (MODERNA-BLUE TOP) 2022-02-04 00:00:00 Completed [facility] SARS-COV-2 COVID-19 VACCINE 12 YRS+, BIVALENT 0.5ML, IM, (MODERNA-BLUE TOP) 2022-02-04 00:00:00 Completed [facility] SARS-COV-2 COVID-19 VACCINE 12 YRS+, BIVALENT 0.5ML, IM, (MODERNA-BLUE TOP) 2022-02-04 00:00:00 Completed [facility] SARS-COV-2 COVID-19 VACCINE 12 YRS+, BIVALENT 0.5ML, IM, (MODERNA-BLUE TOP) 2022-02-04 00:00:00 Completed [facility] SARS-COV-2 COVID-19 VACCINE 12 YRS+, BIVALENT 0.5ML, IM, (MODERNA-BLUE TOP) 2022-02-04 00:00:00 Completed [facility] SARS-COV-2 COVID-19 VACCINE 12 YRS+, BIVALENT 0.5ML, IM, (MODERNA-BLUE TOP) 2022-02-04 00:00:00 Completed [facility] SARS-COV-2 COVID-19 VACCINE 12 YRS+, BIVALENT 0.5ML, IM, (MODERNA-BLUE TOP) 2022-02-04 00:00:00 Completed [facility] SARS-COV-2 COVID-19 VACCINE 12 YRS+, BIVALENT 0.5ML, IM, (MODERNA-BLUE TOP) 2022-02-04 00:00:00 Completed [facility] SARS-COV-2 COVID-19 VACCINE 12 YRS+, BIVALENT 0.5ML, IM, (MODERNA-BLUE TOP) 2022-02-04 00:00:00 Completed [facility] SARS-COV-2 COVID-19 VACCINE 12 YRS+, BIVALENT 0.5ML, IM, (MODERNA-BLUE TOP) 2022-02-04 00:00:00 Completed [facility] SARS-COV-2 COVID-19 VACCINE 12 YRS+, BIVALENT 0.5ML, IM, (MODERNA-BLUE TOP) 2022-02-04 00:00:00 Completed [facility] SARS-COV-2 COVID-19 VACCINE 12 YRS+, BIVALENT 0.5ML, IM, (MODERNA-BLUE TOP) 2022-02-04 00:00:00 Completed [facility] SARS-COV-2 COVID-19 VACCINE 12 YRS+, BIVALENT 0.5ML, IM, (MODERNA-BLUE TOP) 2022-02-04 00:00:00 Completed [facility] SARS-COV-2 COVID-19 VACCINE 12 YRS+, BIVALENT 0.5ML, IM, (MODERNA-BLUE TOP) 2022-02-04 00:00:00 Completed [facility] SARS-COV-2 COVID-19 MODERNA 0.25ML BOOSTER VACCINE 2021-09-03 00:00:00 Completed [facility] SARS-COV-2 COVID-19 MODERNA 0.25ML BOOSTER VACCINE 2021-09-03 00:00:00 Completed [facility] SARS-COV-2 COVID-19 MODERNA 0.25ML BOOSTER VACCINE 2021-09-03 00:00:00 Completed [facility] SARS-COV-2 COVID-19 MODERNA 0.25ML BOOSTER VACCINE 2021-09-03 00:00:00 Completed [facility] SARS-COV-2 COVID-19 MODERNA 0.25ML BOOSTER VACCINE 2021-09-03 00:00:00 Completed [facility] SARS-COV-2 COVID-19 MODERNA 0.25ML BOOSTER VACCINE 2021-09-03 00:00:00 Completed [facility] SARS-COV-2 COVID-19 MODERNA 0.25ML BOOSTER VACCINE 2021-09-03 00:00:00 Completed [facility] SARS-COV-2 COVID-19 MODERNA 0.25ML BOOSTER VACCINE 2021-09-03 00:00:00 Completed [facility] SARS-COV-2 COVID-19 MODERNA 0.25ML BOOSTER VACCINE 2021-09-03 00:00:00 Completed [facility] SARS-COV-2 COVID-19 MODERNA 0.25ML BOOSTER VACCINE 2021-09-03 00:00:00 Completed [facility] SARS-COV-2 COVID-19 MODERNA 0.25ML BOOSTER VACCINE 2021-09-03 00:00:00 Completed [facility] SARS-COV-2 COVID-19 MODERNA 0.25ML BOOSTER VACCINE 2021-09-03 00:00:00 Completed [facility] SARS-COV-2 COVID-19 MODERNA 0.25ML BOOSTER VACCINE 2021-09-03 00:00:00 Completed [facility] SARS-COV-2 COVID-19 MODERNA 0.25ML BOOSTER VACCINE 2021-09-03 00:00:00 Completed [facility] SARS-COV-2 COVID-19 MODERNA 0.25ML BOOSTER VACCINE 2021-09-03 00:00:00 Completed [facility] SARS-COV-2 COVID-19 MODERNA 0.25ML BOOSTER VACCINE 2021-09-03 00:00:00 Completed [facility] SARS-COV-2 COVID-19 MODERNA 0.25ML BOOSTER VACCINE 2021-09-03 00:00:00 Completed [facility] SARS-COV-2 COVID-19 MODERNA 0.25ML BOOSTER VACCINE 2021-09-03 00:00:00 Completed [facility] SARS-COV-2 COVID-19 MODERNA 0.25ML BOOSTER VACCINE 2021-09-03 00:00:00 Completed [facility] SARS-COV-2 COVID-19 MODERNA 0.25ML BOOSTER VACCINE 2021-09-03 00:00:00 Completed [facility] SARS-COV-2 COVID-19 MODERNA 0.25ML BOOSTER VACCINE 2021-09-03 00:00:00 Completed [facility] SARS-COV-2 COVID-19 MODERNA 0.25ML BOOSTER VACCINE 2021-09-03 00:00:00 Completed [facility] SARS-COV-2 COVID-19 MODERNA 0.25ML BOOSTER VACCINE 2021-09-03 00:00:00 Completed [facility] SARS-COV-2 COVID-19 MODERNA 0.25ML BOOSTER VACCINE 2021-09-03 00:00:00 Completed [facility] SARS-COV-2 COVID-19 MODERNA 0.25ML BOOSTER VACCINE 2021-09-03 00:00:00 Completed [facility] SARS-COV-2 COVID-19 MODERNA 0.25ML BOOSTER VACCINE 2021-09-03 00:00:00 Completed [facility] SARS-COV-2 COVID-19 MODERNA 0.25ML BOOSTER VACCINE 2021-09-03 00:00:00 Completed [facility] SARS-COV-2 COVID-19 MODERNA 0.25ML BOOSTER VACCINE 2021-09-03 00:00:00 Completed [facility] SARS-COV-2 COVID-19 MODERNA 0.25ML BOOSTER VACCINE 2021-09-03 00:00:00 Completed [facility] SARS-COV-2 COVID-19 MODERNA 0.25ML BOOSTER VACCINE 2021-09-03 00:00:00 Completed [facility] SARS-COV-2 COVID-19 MODERNA 0.25ML BOOSTER VACCINE 2021-09-03 00:00:00 Completed [facility] SARS-COV-2 COVID-19 MODERNA 0.25ML BOOSTER VACCINE 2021-09-03 00:00:00 Completed [facility] SARS-COV-2 COVID-19 MODERNA 0.25ML BOOSTER VACCINE 2021-09-03 00:00:00 Completed [facility] SARS-COV-2 COVID-19 MODERNA 0.25ML BOOSTER VACCINE 2021-09-03 00:00:00 Completed [facility] SARS-COV-2 COVID-19 MODERNA 0.25ML BOOSTER VACCINE 2021-09-03 00:00:00 Completed [facility] SARS-COV-2 COVID-19 MODERNA 0.25ML BOOSTER VACCINE 2021-09-03 00:00:00 Completed [facility] SARS-COV-2 COVID-19 MODERNA 0.25ML BOOSTER VACCINE 2021-09-03 00:00:00 Completed [facility] SARS-COV-2 COVID-19 MODERNA 0.25ML BOOSTER VACCINE 2021-09-03 00:00:00 Completed [facility] SARS-COV-2 COVID-19 MODERNA 0.25ML BOOSTER VACCINE 2021-09-03 00:00:00 Completed [facility] SARS-COV-2 COVID-19 MODERNA 0.25ML BOOSTER VACCINE 2021-09-03 00:00:00 Completed [facility] SARS-COV-2 COVID-19 MODERNA 0.25ML BOOSTER VACCINE 2021-09-03 00:00:00 Completed [facility] SARS-COV-2 COVID-19 MODERNA 0.25ML BOOSTER VACCINE 2021-09-03 00:00:00 Completed [facility] SARS-COV-2 COVID-19 MODERNA 0.25ML BOOSTER VACCINE 2021-09-03 00:00:00 Completed [facility] SARS-COV-2 COVID-19 MODERNA 0.25ML BOOSTER VACCINE 2021-09-03 00:00:00 Completed [facility] SARS-COV-2 COVID-19 MODERNA 0.25ML BOOSTER VACCINE 2021-09-03 00:00:00 Completed [facility] SARS-COV-2 COVID-19 MODERNA 0.25ML BOOSTER VACCINE 2021-09-03 00:00:00 Completed [facility] SARS-COV-2 COVID-19 MODERNA 0.25ML BOOSTER VACCINE 2021-09-03 00:00:00 Completed [facility] SARS-COV-2 COVID-19 MODERNA 0.25ML BOOSTER VACCINE 2021-09-03 00:00:00 Completed [facility] SARS-COV-2 COVID-19 MODERNA 0.25ML BOOSTER VACCINE 2021-09-03 00:00:00 Completed [facility] SARS-COV-2 COVID-19 MODERNA 0.25ML BOOSTER VACCINE 2021-09-03 00:00:00 Completed [facility] SARS-COV-2 COVID-19 MODERNA 0.25ML BOOSTER VACCINE 2021-09-03 00:00:00 Completed [facility] SARS-COV-2 COVID-19 MODERNA 0.25ML BOOSTER VACCINE 2021-09-03 00:00:00 Completed [facility] SARS-COV-2 COVID-19 MODERNA 0.25ML BOOSTER VACCINE 2021-09-03 00:00:00 Completed [facility] SARS-COV-2 COVID-19 MODERNA 0.25ML BOOSTER VACCINE 2021-09-03 00:00:00 Completed [facility] SARS-COV-2 COVID-19 MODERNA 0.25ML BOOSTER VACCINE 2021-09-03 00:00:00 Completed [facility] SARS-COV-2 COVID-19 MODERNA 0.25ML BOOSTER VACCINE 2021-09-03 00:00:00 Completed [facility] SARS-COV-2 COVID-19 MODERNA 0.25ML BOOSTER VACCINE 2021-09-03 00:00:00 Completed [facility] SARS-COV-2 COVID-19 MODERNA 0.25ML BOOSTER VACCINE 2021-09-03 00:00:00 Completed [facility] SARS-COV-2 COVID-19 MODERNA 0.25ML BOOSTER VACCINE 2021-09-03 00:00:00 Completed [facility] SARS-COV-2 COVID-19 MODERNA 0.25ML BOOSTER VACCINE 2021-09-03 00:00:00 Completed [facility] SARS-COV-2 COVID-19 MODERNA 0.25ML BOOSTER VACCINE 2021-09-03 00:00:00 Completed [facility] SARS-COV-2 COVID-19 MODERNA 0.25ML BOOSTER VACCINE 2021-09-03 00:00:00 Completed [facility] SARS-COV-2 COVID-19 MODERNA 0.25ML BOOSTER VACCINE 2021-09-03 00:00:00 Completed [facility] SARS-COV-2 COVID-19 MODERNA 0.25ML BOOSTER VACCINE 2021-09-03 00:00:00 Completed [facility] SARS-COV-2 COVID-19 MODERNA 0.25ML BOOSTER VACCINE 2021-09-03 00:00:00 Completed [facility] SARS-COV-2 COVID-19 MODERNA 0.25ML BOOSTER VACCINE 2021-09-03 00:00:00 Completed [facility] SARS-COV-2 COVID-19 MODERNA 0.25ML BOOSTER VACCINE 2021-09-03 00:00:00 Completed [facility] SARS-COV-2 COVID-19 MODERNA 0.25ML BOOSTER VACCINE 2021-09-03 00:00:00 Completed [facility] SARS-COV-2 COVID-19 MODERNA 0.25ML BOOSTER VACCINE 2021-09-03 00:00:00 Completed [facility] SARS-COV-2 COVID-19 MODERNA 0.25ML BOOSTER VACCINE 2021-09-03 00:00:00 Completed [facility] SARS-COV-2 COVID-19 MODERNA 0.25ML BOOSTER VACCINE 2021-09-03 00:00:00 Completed [facility] SARS-COV-2 COVID-19 MODERNA 0.25ML BOOSTER VACCINE 2021-09-03 00:00:00 Completed [facility] SARS-COV-2 COVID-19 MODERNA 0.25ML BOOSTER VACCINE 2021-09-03 00:00:00 Completed [facility] SARS-COV-2 COVID-19 MODERNA 0.25ML BOOSTER VACCINE 2021-09-03 00:00:00 Completed [facility] SARS-COV-2 COVID-19 MODERNA 0.25ML BOOSTER VACCINE 2021-09-03 00:00:00 Completed [facility] SARS-COV-2 COVID-19 MODERNA 0.25ML BOOSTER VACCINE 2021-09-03 00:00:00 Completed [facility] SARS-COV-2 COVID-19 MODERNA 0.25ML BOOSTER VACCINE 2021-09-03 00:00:00 Completed [facility] Influenza Virus Vaccine 2021-07-01 00:00:00 Completed [facility] Pneumococcal 7 Conjugate, PCV7 (Prevnar7) 2021-07-01 00:00:00 Completed [facility] Influenza Virus Vaccine (3+ yrs) 2021-07-01 00:00:00 Completed [facility] Influenza Virus Vaccine Quad IM 3+ YRS 2021-07-01 00:00:00 Completed [facility] SARS-COV-2 COVID-19 MODERNA 12+ YRS VACCINE 2021-07-01 00:00:00 Completed [facility] Influenza Virus Vaccine,quad Im,preserve Free 65+ (FLUAD) 2021-07-01 00:00:00 Completed [facility] Pneumococcal 13 Conjugate, PCV13 (Prevnar 13) 2021-07-01 00:00:00 Completed [facility] Pneumococcal 13 Conjugate, PCV13 (Prevnar 13) 2021-05-07 00:00:00 Completed [facility] Pneumococcal 13 Conjugate, PCV13 (Prevnar 13) 2021-05-07 00:00:00 Completed [facility] Pneumococcal 13 Conjugate, PCV13 (Prevnar 13) 2021-05-07 00:00:00 Completed [facility] Pneumococcal 13 Conjugate, PCV13 (Prevnar 13) 2021-05-07 00:00:00 Completed [facility] Pneumococcal 13 Conjugate, PCV13 (Prevnar 13) 2021-05-07 00:00:00 Completed [facility] Pneumococcal 13 Conjugate, PCV13 (Prevnar 13) 2021-05-07 00:00:00 Completed [facility] Pneumococcal 13 Conjugate, PCV13 (Prevnar 13) 2021-05-07 00:00:00 Completed [facility] Pneumococcal 13 Conjugate, PCV13 (Prevnar 13) 2021-05-07 00:00:00 Completed [facility] Pneumococcal 13 Conjugate, PCV13 (Prevnar 13) 2021-05-07 00:00:00 Completed [facility] Pneumococcal 13 Conjugate, PCV13 (Prevnar 13) 2021-05-07 00:00:00 Completed [facility] Pneumococcal 13 Conjugate, PCV13 (Prevnar 13) 2021-05-07 00:00:00 Completed [facility] Pneumococcal 13 Conjugate, PCV13 (Prevnar 13) 2021-05-07 00:00:00 Completed [facility] Pneumococcal 13 Conjugate, PCV13 (Prevnar 13) 2021-05-07 00:00:00 Completed [facility] Pneumococcal 13 Conjugate, PCV13 (Prevnar 13) 2021-05-07 00:00:00 Completed [facility] Pneumococcal 13 Conjugate, PCV13 (Prevnar 13) 2021-05-07 00:00:00 Completed [facility] Pneumococcal 13 Conjugate, PCV13 (Prevnar 13) 2021-05-07 00:00:00 Completed [facility] Pneumococcal 13 Conjugate, PCV13 (Prevnar 13) 2021-05-07 00:00:00 Completed [facility] Pneumococcal 13 Conjugate, PCV13 (Prevnar 13) 2021-05-07 00:00:00 Completed [facility] Pneumococcal 13 Conjugate, PCV13 (Prevnar 13) 2021-05-07 00:00:00 Completed [facility] Pneumococcal 13 Conjugate, PCV13 (Prevnar 13) 2021-05-07 00:00:00 Completed [facility] Pneumococcal 13 Conjugate, PCV13 (Prevnar 13) 2021-05-07 00:00:00 Completed [facility] Pneumococcal 13 Conjugate, PCV13 (Prevnar 13) 2021-05-07 00:00:00 Completed [facility] Pneumococcal 13 Conjugate, PCV13 (Prevnar 13) 2021-05-07 00:00:00 Completed [facility] Pneumococcal 13 Conjugate, PCV13 (Prevnar 13) 2021-05-07 00:00:00 Completed [facility] Pneumococcal 13 Conjugate, PCV13 (Prevnar 13) 2021-05-07 00:00:00 Completed [facility] Pneumococcal 13 Conjugate, PCV13 (Prevnar 13) 2021-05-07 00:00:00 Completed [facility] Pneumococcal 13 Conjugate, PCV13 (Prevnar 13) 2021-05-07 00:00:00 Completed [facility] Pneumococcal 13 Conjugate, PCV13 (Prevnar 13) 2021-05-07 00:00:00 Completed [facility] Pneumococcal 13 Conjugate, PCV13 (Prevnar 13) 2021-05-07 00:00:00 Completed [facility] Pneumococcal 13 Conjugate, PCV13 (Prevnar 13) 2021-05-07 00:00:00 Completed [facility] Pneumococcal 13 Conjugate, PCV13 (Prevnar 13) 2021-05-07 00:00:00 Completed [facility] Pneumococcal 13 Conjugate, PCV13 (Prevnar 13) 2021-05-07 00:00:00 Completed [facility] Pneumococcal 13 Conjugate, PCV13 (Prevnar 13) 2021-05-07 00:00:00 Completed [facility] Pneumococcal 13 Conjugate, PCV13 (Prevnar 13) 2021-05-07 00:00:00 Completed [facility] Pneumococcal 13 Conjugate, PCV13 (Prevnar 13) 2021-05-07 00:00:00 Completed [facility] Pneumococcal 13 Conjugate, PCV13 (Prevnar 13) 2021-05-07 00:00:00 Completed [facility] Pneumococcal 13 Conjugate, PCV13 (Prevnar 13) 2021-05-07 00:00:00 Completed [facility] Pneumococcal 13 Conjugate, PCV13 (Prevnar 13) 2021-05-07 00:00:00 Completed [facility] Pneumococcal 13 Conjugate, PCV13 (Prevnar 13) 2021-05-07 00:00:00 Completed [facility] Pneumococcal 13 Conjugate, PCV13 (Prevnar 13) 2021-05-07 00:00:00 Completed [facility] Pneumococcal 13 Conjugate, PCV13 (Prevnar 13) 2021-05-07 00:00:00 Completed [facility] Pneumococcal 13 Conjugate, PCV13 (Prevnar 13) 2021-05-07 00:00:00 Completed [facility] Pneumococcal 13 Conjugate, PCV13 (Prevnar 13) 2021-05-07 00:00:00 Completed [facility] Pneumococcal 13 Conjugate, PCV13 (Prevnar 13) 2021-05-07 00:00:00 Completed [facility] Pneumococcal 13 Conjugate, PCV13 (Prevnar 13) 2021-05-07 00:00:00 Completed [facility] Pneumococcal 13 Conjugate, PCV13 (Prevnar 13) 2021-05-07 00:00:00 Completed [facility] Pneumococcal 13 Conjugate, PCV13 (Prevnar 13) 2021-05-07 00:00:00 Completed [facility] Pneumococcal 13 Conjugate, PCV13 (Prevnar 13) 2021-05-07 00:00:00 Completed [facility] Pneumococcal 13 Conjugate, PCV13 (Prevnar 13) 2021-05-07 00:00:00 Completed [facility] Pneumococcal 13 Conjugate, PCV13 (Prevnar 13) 2021-05-07 00:00:00 Completed [facility] Pneumococcal 13 Conjugate, PCV13 (Prevnar 13) 2021-05-07 00:00:00 Completed [facility] Pneumococcal 13 Conjugate, PCV13 (Prevnar 13) 2021-05-07 00:00:00 Completed [facility] Pneumococcal 13 Conjugate, PCV13 (Prevnar 13) 2021-05-07 00:00:00 Completed [facility] Pneumococcal 13 Conjugate, PCV13 (Prevnar 13) 2021-05-07 00:00:00 Completed [facility] Pneumococcal 13 Conjugate, PCV13 (Prevnar 13) 2021-05-07 00:00:00 Completed [facility] Pneumococcal 13 Conjugate, PCV13 (Prevnar 13) 2021-05-07 00:00:00 Completed [facility] Pneumococcal 13 Conjugate, PCV13 (Prevnar 13) 2021-05-07 00:00:00 Completed [facility] Pneumococcal 13 Conjugate, PCV13 (Prevnar 13) 2021-05-07 00:00:00 Completed [facility] Pneumococcal 13 Conjugate, PCV13 (Prevnar 13) 2021-05-07 00:00:00 Completed [facility] Pneumococcal 13 Conjugate, PCV13 (Prevnar 13) 2021-05-07 00:00:00 Completed [facility] Pneumococcal 13 Conjugate, PCV13 (Prevnar 13) 2021-05-07 00:00:00 Completed [facility] Pneumococcal 13 Conjugate, PCV13 (Prevnar 13) 2021-05-07 00:00:00 Completed [facility] Pneumococcal 13 Conjugate, PCV13 (Prevnar 13) 2021-05-07 00:00:00 Completed [facility] Pneumococcal 13 Conjugate, PCV13 (Prevnar 13) 2021-05-07 00:00:00 Completed [facility] Pneumococcal 13 Conjugate, PCV13 (Prevnar 13) 2021-05-07 00:00:00 Completed [facility] Pneumococcal 13 Conjugate, PCV13 (Prevnar 13) 2021-05-07 00:00:00 Completed [facility] Pneumococcal 13 Conjugate, PCV13 (Prevnar 13) 2021-05-07 00:00:00 Completed [facility] Pneumococcal 13 Conjugate, PCV13 (Prevnar 13) 2021-05-07 00:00:00 Completed [facility] Pneumococcal 13 Conjugate, PCV13 (Prevnar 13) 2021-05-07 00:00:00 Completed [facility] Pneumococcal 13 Conjugate, PCV13 (Prevnar 13) 2021-05-07 00:00:00 Completed [facility] Pneumococcal 13 Conjugate, PCV13 (Prevnar 13) 2021-05-07 00:00:00 Completed [facility] Pneumococcal 13 Conjugate, PCV13 (Prevnar 13) 2021-05-07 00:00:00 Completed [facility] Pneumococcal 13 Conjugate, PCV13 (Prevnar 13) 2021-05-07 00:00:00 Completed [facility] Pneumococcal 13 Conjugate, PCV13 (Prevnar 13) 2021-05-07 00:00:00 Completed [facility] Pneumococcal 13 Conjugate, PCV13 (Prevnar 13) 2021-05-07 00:00:00 Completed [facility] Pneumococcal 13 Conjugate, PCV13 (Prevnar 13) 2021-05-07 00:00:00 Completed [facility] Pneumococcal 13 Conjugate, PCV13 (Prevnar 13) 2021-05-07 00:00:00 Completed [facility] Influenza Virus Vaccine,quad Im,preserve Free 65+ 2021-03-29 00:00:00 Completed [facility] Influenza Virus Vaccine,quad Im,preserve Free 652021-03-29 00:00:00 Completed [facility] Influenza Virus Vaccine,quad Im,preserve Free 65+ 2021-03-29 00:00:00 Completed [facility] Influenza Virus Vaccine,quad Im,preserve Free 65+ 2021-03-29 00:00:00 Completed [facility] Influenza Virus Vaccine,quad Im,preserve Free 65+ 2021-03-29 00:00:00 Completed [facility] Influenza Virus Vaccine,quad Im,preserve Free 65+ 2021-03-29 00:00:00 Completed [facility] Influenza Virus Vaccine,quad Im,preserve Free 65+ 2021-03-29 00:00:00 Completed [facility] Influenza Virus Vaccine,quad Im,preserve Free 652021-03-29 00:00:00 Completed [facility] Influenza Virus Vaccine,quad Im,preserve Free 652021-03-29 00:00:00 Completed [facility] Influenza Virus Vaccine,quad Im,preserve Free 652021-03-29 00:00:00 Completed [facility] Influenza Virus Vaccine,quad Im,preserve Free 652021-03-29 00:00:00 Completed [facility] Influenza Virus Vaccine,quad Im,preserve Free 652021-03-29 00:00:00 Completed [facility] Influenza Virus Vaccine,quad Im,preserve Free 652021-03-29 00:00:00 Completed [facility] Influenza Virus Vaccine,quad Im,preserve Free 652021-03-29 00:00:00 Completed [facility] Influenza Virus Vaccine,quad Im,preserve Free 652021-03-29 00:00:00 Completed [facility] Influenza Virus Vaccine,quad Im,preserve Free 652021-03-29 00:00:00 Completed [facility] Influenza Virus Vaccine,quad Im,preserve Free 652021-03-29 00:00:00 Completed [facility] Influenza Virus Vaccine,quad Im,preserve Free 652021-03-29 00:00:00 Completed [facility] Influenza Virus Vaccine,quad Im,preserve Free 652021-03-29 00:00:00 Completed [facility] Influenza Virus Vaccine,quad Im,preserve Free 652021-03-29 00:00:00 Completed [facility] Influenza Virus Vaccine,quad Im,preserve Free 652021-03-29 00:00:00 Completed [facility] Influenza Virus Vaccine,quad Im,preserve Free 652021-03-29 00:00:00 Completed [facility] Influenza Virus Vaccine,quad Im,preserve Free 652021-03-29 00:00:00 Completed [facility] Influenza Virus Vaccine,quad Im,preserve Free 652021-03-29 00:00:00 Completed [facility] Influenza Virus Vaccine,quad Im,preserve Free 652021-03-29 00:00:00 Completed [facility] Influenza Virus Vaccine,quad Im,preserve Free 652021-03-29 00:00:00 Completed [facility] Influenza Virus Vaccine,quad Im,preserve Free 652021-03-29 00:00:00 Completed [facility] Influenza Virus Vaccine,quad Im,preserve Free 652021-03-29 00:00:00 Completed [facility] Influenza Virus Vaccine,quad Im,preserve Free 652021-03-29 00:00:00 Completed [facility] Influenza Virus Vaccine,quad Im,preserve Free 652021-03-29 00:00:00 Completed [facility] Influenza Virus Vaccine,quad Im,preserve Free 652021-03-29 00:00:00 Completed [facility] Influenza Virus Vaccine,quad Im,preserve Free 652021-03-29 00:00:00 Completed [facility] Influenza Virus Vaccine,quad Im,preserve Free 652021-03-29 00:00:00 Completed [facility] Influenza Virus Vaccine,quad Im,preserve Free 652021-03-29 00:00:00 Completed [facility] Influenza Virus Vaccine,quad Im,preserve Free 2021-03-29 00:00:00 Completed [facility] Influenza Virus Vaccine,quad Im,preserve Free 652021-03-29 00:00:00 Completed [facility] Influenza Virus Vaccine,quad Im,preserve Free 652021-03-29 00:00:00 Completed [facility] Influenza Virus Vaccine,quad Im,preserve Free 652021-03-29 00:00:00 Completed [facility] Influenza Virus Vaccine,quad Im,preserve Free 652021-03-29 00:00:00 Completed [facility] Influenza Virus Vaccine,quad Im,preserve Free 652021-03-29 00:00:00 Completed [facility] Influenza Virus Vaccine,quad Im,preserve Free 652021-03-29 00:00:00 Completed [facility] Influenza Virus Vaccine,quad Im,preserve Free 652021-03-29 00:00:00 Completed [facility] Influenza Virus Vaccine,quad Im,preserve Free 652021-03-29 00:00:00 Completed [facility] Influenza Virus Vaccine,quad Im,preserve Free 652021-03-29 00:00:00 Completed [facility] Influenza Virus Vaccine,quad Im,preserve Free 652021-03-29 00:00:00 Completed [facility] Influenza Virus Vaccine,quad Im,preserve Free 652021-03-29 00:00:00 Completed [facility] Influenza Virus Vaccine,quad Im,preserve Free 652021-03-29 00:00:00 Completed [facility] Influenza Virus Vaccine,quad Im,preserve Free 652021-03-29 00:00:00 Completed [facility] Influenza Virus Vaccine,quad Im,preserve Free 652021-03-29 00:00:00 Completed [facility] Influenza Virus Vaccine,quad Im,preserve Free 652021-03-29 00:00:00 Completed [facility] Influenza Virus Vaccine,quad Im,preserve Free 652021-03-29 00:00:00 Completed [facility] Influenza Virus Vaccine,quad Im,preserve Free 652021-03-29 00:00:00 Completed [facility] Influenza Virus Vaccine,quad Im,preserve Free 2021-03-29 00:00:00 Completed [facility] Influenza Virus Vaccine,quad Im,preserve Free 652021-03-29 00:00:00 Completed [facility] Influenza Virus Vaccine,quad Im,preserve Free 2021-03-29 00:00:00 Completed [facility] Influenza Virus Vaccine,quad Im,preserve Free 652021-03-29 00:00:00 Completed [facility] Influenza Virus Vaccine,quad Im,preserve Free 652021-03-29 00:00:00 Completed [facility] Influenza Virus Vaccine,quad Im,preserve Free 652021-03-29 00:00:00 Completed [facility] Influenza Virus Vaccine,quad Im,preserve Free 652021-03-29 00:00:00 Completed [facility] Influenza Virus Vaccine,quad Im,preserve Free 652021-03-29 00:00:00 Completed [facility] Influenza Virus Vaccine,quad Im,preserve Free 65+ 2021-03-29 00:00:00 Completed [facility] Influenza Virus Vaccine,quad Im,preserve Free 65+ 2021-03-29 00:00:00 Completed [facility] Influenza Virus Vaccine,quad Im,preserve Free 65+ 2021-03-29 00:00:00 Completed [facility] Influenza Virus Vaccine,quad Im,preserve Free 65+ 2021-03-29 00:00:00 Completed [facility] Influenza Virus Vaccine,quad Im,preserve Free 65+ 2021-03-29 00:00:00 Completed [facility] Influenza Virus Vaccine,quad Im,preserve Free 65+ 2021-03-29 00:00:00 Completed [facility] Influenza Virus Vaccine,quad Im,preserve Free 65+ 2021-03-29 00:00:00 Completed [facility] Influenza Virus Vaccine,quad Im,preserve Free 65+ 2021-03-29 00:00:00 Completed [facility] Influenza Virus Vaccine,quad Im,preserve Free 65+ 2021-03-29 00:00:00 Completed [facility] Influenza Virus Vaccine,quad Im,preserve Free 65+ 2021-03-29 00:00:00 Completed [facility] Influenza Virus Vaccine,quad Im,preserve Free 65+ 2021-03-29 00:00:00 Completed [facility] Influenza Virus Vaccine,quad Im,preserve Free 65+ 2021-03-29 00:00:00 Completed [facility] Influenza Virus Vaccine,quad Im,preserve Free 65+ 2021-03-29 00:00:00 Completed [facility] Influenza Virus Vaccine,quad Im,preserve Free 65+ (FLUAD) 2021-03-29 00:00:00 Completed [facility] Influenza Virus Vaccine,quad Im,preserve Free 65+ (FLUAD) 2021-03-29 00:00:00 Completed [facility] Influenza Virus Vaccine,quad Im,preserve Free 65+ (FLUAD) 2021-03-29 00:00:00 Completed [facility] Influenza Virus Vaccine,quad Im,preserve Free 65+ (FLUAD) 2021-03-29 00:00:00 Completed [facility] SARS-COV-2 COVID-19 MODERNA 12+ YRS VACCINE 2020-12-29 00:00:00 Completed [facility] SARS-COV-2 COVID-19 MODERNA 12+ YRS VACCINE 2020-12-29 00:00:00 Completed [facility] SARS-COV-2 COVID-19 MODERNA 12+ YRS VACCINE 2020-12-29 00:00:00 Completed [facility] SARS-COV-2 COVID-19 MODERNA 12+ YRS VACCINE 2020-12-29 00:00:00 Completed [facility] SARS-COV-2 COVID-19 MODERNA 12+ YRS VACCINE 2020-12-29 00:00:00 Completed [facility] SARS-COV-2 COVID-19 MODERNA 12+ YRS VACCINE 2020-12-29 00:00:00 Completed [facility] SARS-COV-2 COVID-19 MODERNA 12+ YRS VACCINE 2020-12-29 00:00:00 Completed [facility] SARS-COV-2 COVID-19 MODERNA 12+ YRS VACCINE 2020-12-29 00:00:00 Completed [facility] SARS-COV-2 COVID-19 MODERNA 12+ YRS VACCINE 2020-12-29 00:00:00 Completed [facility] SARS-COV-2 COVID-19 MODERNA 12+ YRS VACCINE 2020-12-29 00:00:00 Completed [facility] SARS-COV-2 COVID-19 MODERNA 12+ YRS VACCINE 2020-12-29 00:00:00 Completed [facility] SARS-COV-2 COVID-19 MODERNA 12+ YRS VACCINE 2020-12-29 00:00:00 Completed [facility] SARS-COV-2 COVID-19 MODERNA 12+ YRS VACCINE 2020-12-29 00:00:00 Completed [facility] SARS-COV-2 COVID-19 MODERNA 12+ YRS VACCINE 2020-12-29 00:00:00 Completed [facility] SARS-COV-2 COVID-19 MODERNA 12+ YRS VACCINE 2020-12-29 00:00:00 Completed [facility] SARS-COV-2 COVID-19 MODERNA 12+ YRS VACCINE 2020-12-29 00:00:00 Completed [facility] SARS-COV-2 COVID-19 MODERNA 12+ YRS VACCINE 2020-12-29 00:00:00 Completed [facility] SARS-COV-2 COVID-19 MODERNA 12+ YRS VACCINE 2020-12-29 00:00:00 Completed [facility] SARS-COV-2 COVID-19 MODERNA 12+ YRS VACCINE 2020-12-29 00:00:00 Completed [facility] SARS-COV-2 COVID-19 MODERNA 12+ YRS VACCINE 2020-12-29 00:00:00 Completed [facility] SARS-COV-2 COVID-19 MODERNA 12+ YRS VACCINE 2020-12-29 00:00:00 Completed [facility] SARS-COV-2 COVID-19 MODERNA 12+ YRS VACCINE 2020-12-29 00:00:00 Completed [facility] SARS-COV-2 COVID-19 MODERNA 12+ YRS VACCINE 2020-12-29 00:00:00 Completed [facility] SARS-COV-2 COVID-19 MODERNA 12+ YRS VACCINE 2020-12-29 00:00:00 Completed [facility] SARS-COV-2 COVID-19 MODERNA 12+ YRS VACCINE 2020-12-29 00:00:00 Completed [facility] SARS-COV-2 COVID-19 MODERNA 12+ YRS VACCINE 2020-12-29 00:00:00 Completed [facility] SARS-COV-2 COVID-19 MODERNA 12+ YRS VACCINE 2020-12-29 00:00:00 Completed [facility] SARS-COV-2 COVID-19 MODERNA 12+ YRS VACCINE 2020-12-29 00:00:00 Completed [facility] SARS-COV-2 COVID-19 MODERNA 12+ YRS VACCINE 2020-12-29 00:00:00 Completed [facility] SARS-COV-2 COVID-19 MODERNA 12+ YRS VACCINE 2020-12-29 00:00:00 Completed [facility] SARS-COV-2 COVID-19 MODERNA 12+ YRS VACCINE 2020-12-29 00:00:00 Completed [facility] SARS-COV-2 COVID-19 MODERNA 12+ YRS VACCINE 2020-12-29 00:00:00 Completed [facility] SARS-COV-2 COVID-19 MODERNA 12+ YRS VACCINE 2020-12-29 00:00:00 Completed [facility] SARS-COV-2 COVID-19 MODERNA 12+ YRS VACCINE 2020-12-29 00:00:00 Completed [facility] SARS-COV-2 COVID-19 MODERNA 12+ YRS VACCINE 2020-12-29 00:00:00 Completed [facility] SARS-COV-2 COVID-19 MODERNA 12+ YRS VACCINE 2020-12-29 00:00:00 Completed [facility] SARS-COV-2 COVID-19 MODERNA 12+ YRS VACCINE 2020-12-29 00:00:00 Completed [facility] SARS-COV-2 COVID-19 MODERNA 12+ YRS VACCINE 2020-12-29 00:00:00 Completed [facility] SARS-COV-2 COVID-19 MODERNA 12+ YRS VACCINE 2020-12-29 00:00:00 Completed [facility] SARS-COV-2 COVID-19 MODERNA 12+ YRS VACCINE 2020-12-29 00:00:00 Completed [facility] SARS-COV-2 COVID-19 MODERNA 12+ YRS VACCINE 2020-12-29 00:00:00 Completed [facility] SARS-COV-2 COVID-19 MODERNA 12+ YRS VACCINE 2020-12-29 00:00:00 Completed [facility] SARS-COV-2 COVID-19 MODERNA 12+ YRS VACCINE 2020-12-29 00:00:00 Completed [facility] SARS-COV-2 COVID-19 MODERNA 12+ YRS VACCINE 2020-12-29 00:00:00 Completed [facility] SARS-COV-2 COVID-19 MODERNA 12+ YRS VACCINE 2020-12-29 00:00:00 Completed [facility] SARS-COV-2 COVID-19 MODERNA 12+ YRS VACCINE 2020-12-29 00:00:00 Completed [facility] SARS-COV-2 COVID-19 MODERNA 12+ YRS VACCINE 2020-12-29 00:00:00 Completed [facility] SARS-COV-2 COVID-19 MODERNA 12+ YRS VACCINE 2020-12-29 00:00:00 Completed [facility] SARS-COV-2 COVID-19 MODERNA 12+ YRS VACCINE 2020-12-29 00:00:00 Completed [facility] SARS-COV-2 COVID-19 MODERNA 12+ YRS VACCINE 2020-12-29 00:00:00 Completed [facility] SARS-COV-2 COVID-19 MODERNA 12+ YRS VACCINE 2020-12-29 00:00:00 Completed [facility] SARS-COV-2 COVID-19 MODERNA 12+ YRS VACCINE 2020-12-29 00:00:00 Completed [facility] SARS-COV-2 COVID-19 MODERNA 12+ YRS VACCINE 2020-12-29 00:00:00 Completed [facility] SARS-COV-2 COVID-19 MODERNA 12+ YRS VACCINE 2020-12-29 00:00:00 Completed [facility] SARS-COV-2 COVID-19 MODERNA 12+ YRS VACCINE 2020-12-29 00:00:00 Completed [facility] SARS-COV-2 COVID-19 MODERNA 12+ YRS VACCINE 2020-12-29 00:00:00 Completed [facility] SARS-COV-2 COVID-19 MODERNA 12+ YRS VACCINE 2020-12-29 00:00:00 Completed [facility] SARS-COV-2 COVID-19 MODERNA 12+ YRS VACCINE 2020-12-29 00:00:00 Completed [facility] SARS-COV-2 COVID-19 MODERNA 12+ YRS VACCINE 2020-12-29 00:00:00 Completed [facility] SARS-COV-2 COVID-19 MODERNA 12+ YRS VACCINE 2020-12-29 00:00:00 Completed [facility] SARS-COV-2 COVID-19 MODERNA 12+ YRS VACCINE 2020-12-29 00:00:00 Completed [facility] SARS-COV-2 COVID-19 MODERNA 12+ YRS VACCINE 2020-12-29 00:00:00 Completed [facility] SARS-COV-2 COVID-19 MODERNA 12+ YRS VACCINE 2020-12-29 00:00:00 Completed [facility] SARS-COV-2 COVID-19 MODERNA 12+ YRS VACCINE 2020-12-29 00:00:00 Completed [facility] SARS-COV-2 COVID-19 MODERNA 12+ YRS VACCINE 2020-12-29 00:00:00 Completed [facility] SARS-COV-2 COVID-19 MODERNA 12+ YRS VACCINE 2020-12-29 00:00:00 Completed [facility] SARS-COV-2 COVID-19 MODERNA 12+ YRS VACCINE 2020-12-29 00:00:00 Completed [facility] SARS-COV-2 COVID-19 MODERNA 12+ YRS VACCINE 2020-12-29 00:00:00 Completed [facility] SARS-COV-2 COVID-19 MODERNA 12+ YRS VACCINE 2020-12-29 00:00:00 Completed [facility] SARS-COV-2 COVID-19 MODERNA 12+ YRS VACCINE 2020-12-29 00:00:00 Completed [facility] SARS-COV-2 COVID-19 MODERNA 12+ YRS VACCINE 2020-12-29 00:00:00 Completed [facility] SARS-COV-2 COVID-19 MODERNA 12+ YRS VACCINE 2020-12-29 00:00:00 Completed [facility] SARS-COV-2 COVID-19 MODERNA 12+ YRS VACCINE 2020-12-29 00:00:00 Completed [facility] SARS-COV-2 COVID-19 MODERNA 12+ YRS VACCINE 2020-12-29 00:00:00 Completed [facility] SARS-COV-2 COVID-19 MODERNA 12+ YRS VACCINE 2020-12-29 00:00:00 Completed [facility] SARS-COV-2 COVID-19 MODERNA 12+ YRS VACCINE 2020-12-29 00:00:00 Completed [facility] SARS-COV-2 COVID-19 MODERNA 12+ YRS VACCINE 2020-12-29 00:00:00 Completed [facility] SARS-COV-2 COVID-19 MODERNA 12+ YRS VACCINE 2020-06-01 00:00:00 Completed [facility] SARS-COV-2 COVID-19 MODERNA 12+ YRS VACCINE 2020-06-01 00:00:00 Completed [facility] SARS-COV-2 COVID-19 MODERNA 12+ YRS VACCINE 2020-06-01 00:00:00 Completed [facility] SARS-COV-2 COVID-19 MODERNA 12+ YRS VACCINE 2020-06-01 00:00:00 Completed [facility] SARS-COV-2 COVID-19 MODERNA 12+ YRS VACCINE 2020-06-01 00:00:00 Completed [facility] SARS-COV-2 COVID-19 MODERNA 12+ YRS VACCINE 2020-06-01 00:00:00 Completed [facility] SARS-COV-2 COVID-19 MODERNA 12+ YRS VACCINE 2020-06-01 00:00:00 Completed [facility] SARS-COV-2 COVID-19 MODERNA 12+ YRS VACCINE 2020-06-01 00:00:00 Completed [facility] SARS-COV-2 COVID-19 MODERNA 12+ YRS VACCINE 2020-06-01 00:00:00 Completed [facility] SARS-COV-2 COVID-19 MODERNA 12+ YRS VACCINE 2020-06-01 00:00:00 Completed [facility] SARS-COV-2 COVID-19 MODERNA 12+ YRS VACCINE 2020-06-01 00:00:00 Completed [facility] SARS-COV-2 COVID-19 MODERNA 12+ YRS VACCINE 2020-06-01 00:00:00 Completed [facility] SARS-COV-2 COVID-19 MODERNA 12+ YRS VACCINE 2020-06-01 00:00:00 Completed [facility] SARS-COV-2 COVID-19 MODERNA 12+ YRS VACCINE 2020-06-01 00:00:00 Completed [facility] SARS-COV-2 COVID-19 MODERNA 12+ YRS VACCINE 2020-06-01 00:00:00 Completed [facility] SARS-COV-2 COVID-19 MODERNA 12+ YRS VACCINE 2020-06-01 00:00:00 Completed [facility] SARS-COV-2 COVID-19 MODERNA 12+ YRS VACCINE 2020-06-01 00:00:00 Completed [facility] SARS-COV-2 COVID-19 MODERNA 12+ YRS VACCINE 2020-06-01 00:00:00 Completed [facility] SARS-COV-2 COVID-19 MODERNA 12+ YRS VACCINE 2020-06-01 00:00:00 Completed [facility] SARS-COV-2 COVID-19 MODERNA 12+ YRS VACCINE 2020-06-01 00:00:00 Completed [facility] SARS-COV-2 COVID-19 MODERNA 12+ YRS VACCINE 2020-06-01 00:00:00 Completed [facility] SARS-COV-2 COVID-19 MODERNA 12+ YRS VACCINE 2020-06-01 00:00:00 Completed [facility] SARS-COV-2 COVID-19 MODERNA 12+ YRS VACCINE 2020-06-01 00:00:00 Completed [facility] SARS-COV-2 COVID-19 MODERNA 12+ YRS VACCINE 2020-06-01 00:00:00 Completed [facility] SARS-COV-2 COVID-19 MODERNA 12+ YRS VACCINE 2020-06-01 00:00:00 Completed [facility] SARS-COV-2 COVID-19 MODERNA 12+ YRS VACCINE 2020-06-01 00:00:00 Completed [facility] SARS-COV-2 COVID-19 MODERNA 12+ YRS VACCINE 2020-06-01 00:00:00 Completed [facility] SARS-COV-2 COVID-19 MODERNA 12+ YRS VACCINE 2020-06-01 00:00:00 Completed [facility] SARS-COV-2 COVID-19 MODERNA 12+ YRS VACCINE 2020-06-01 00:00:00 Completed [facility] SARS-COV-2 COVID-19 MODERNA 12+ YRS VACCINE 2020-06-01 00:00:00 Completed [facility] SARS-COV-2 COVID-19 MODERNA 12+ YRS VACCINE 2020-06-01 00:00:00 Completed [facility] SARS-COV-2 COVID-19 MODERNA 12+ YRS VACCINE 2020-06-01 00:00:00 Completed [facility] SARS-COV-2 COVID-19 MODERNA 12+ YRS VACCINE 2020-06-01 00:00:00 Completed [facility] SARS-COV-2 COVID-19 MODERNA 12+ YRS VACCINE 2020-06-01 00:00:00 Completed [facility] SARS-COV-2 COVID-19 MODERNA 12+ YRS VACCINE 2020-06-01 00:00:00 Completed [facility] SARS-COV-2 COVID-19 MODERNA 12+ YRS VACCINE 2020-06-01 00:00:00 Completed [facility] SARS-COV-2 COVID-19 MODERNA 12+ YRS VACCINE 2020-06-01 00:00:00 Completed [facility] SARS-COV-2 COVID-19 MODERNA 12+ YRS VACCINE 2020-06-01 00:00:00 Completed [facility] SARS-COV-2 COVID-19 MODERNA 12+ YRS VACCINE 2020-06-01 00:00:00 Completed [facility] SARS-COV-2 COVID-19 MODERNA 12+ YRS VACCINE 2020-06-01 00:00:00 Completed [facility] SARS-COV-2 COVID-19 MODERNA 12+ YRS VACCINE 2020-06-01 00:00:00 Completed [facility] SARS-COV-2 COVID-19 MODERNA 12+ YRS VACCINE 2020-06-01 00:00:00 Completed [facility] SARS-COV-2 COVID-19 MODERNA 12+ YRS VACCINE 2020-06-01 00:00:00 Completed [facility] SARS-COV-2 COVID-19 MODERNA 12+ YRS VACCINE 2020-06-01 00:00:00 Completed [facility] SARS-COV-2 COVID-19 MODERNA 12+ YRS VACCINE 2020-06-01 00:00:00 Completed [facility] SARS-COV-2 COVID-19 MODERNA 12+ YRS VACCINE 2020-06-01 00:00:00 Completed [facility] SARS-COV-2 COVID-19 MODERNA 12+ YRS VACCINE 2020-06-01 00:00:00 Completed [facility] SARS-COV-2 COVID-19 MODERNA 12+ YRS VACCINE 2020-06-01 00:00:00 Completed [facility] SARS-COV-2 COVID-19 MODERNA 12+ YRS VACCINE 2020-06-01 00:00:00 Completed [facility] SARS-COV-2 COVID-19 MODERNA 12+ YRS VACCINE 2020-06-01 00:00:00 Completed [facility] SARS-COV-2 COVID-19 MODERNA 12+ YRS VACCINE 2020-06-01 00:00:00 Completed [facility] SARS-COV-2 COVID-19 MODERNA 12+ YRS VACCINE 2020-06-01 00:00:00 Completed [facility] SARS-COV-2 COVID-19 MODERNA 12+ YRS VACCINE 2020-06-01 00:00:00 Completed [facility] SARS-COV-2 COVID-19 MODERNA 12+ YRS VACCINE 2020-06-01 00:00:00 Completed [facility] SARS-COV-2 COVID-19 MODERNA 12+ YRS VACCINE 2020-06-01 00:00:00 Completed [facility] SARS-COV-2 COVID-19 MODERNA 12+ YRS VACCINE 2020-06-01 00:00:00 Completed [facility] SARS-COV-2 COVID-19 MODERNA 12+ YRS VACCINE 2020-06-01 00:00:00 Completed [facility] SARS-COV-2 COVID-19 MODERNA 12+ YRS VACCINE 2020-06-01 00:00:00 Completed [facility] SARS-COV-2 COVID-19 MODERNA 12+ YRS VACCINE 2020-06-01 00:00:00 Completed [facility] SARS-COV-2 COVID-19 MODERNA 12+ YRS VACCINE 2020-06-01 00:00:00 Completed [facility] SARS-COV-2 COVID-19 MODERNA 12+ YRS VACCINE 2020-06-01 00:00:00 Completed [facility] SARS-COV-2 COVID-19 MODERNA 12+ YRS VACCINE 2020-06-01 00:00:00 Completed [facility] SARS-COV-2 COVID-19 MODERNA 12+ YRS VACCINE 2020-06-01 00:00:00 Completed [facility] SARS-COV-2 COVID-19 MODERNA 12+ YRS VACCINE 2020-06-01 00:00:00 Completed [facility] SARS-COV-2 COVID-19 MODERNA 12+ YRS VACCINE 2020-06-01 00:00:00 Completed [facility] SARS-COV-2 COVID-19 MODERNA 12+ YRS VACCINE 2020-06-01 00:00:00 Completed [facility] SARS-COV-2 COVID-19 MODERNA 12+ YRS VACCINE 2020-06-01 00:00:00 Completed [facility] SARS-COV-2 COVID-19 MODERNA 12+ YRS VACCINE 2020-06-01 00:00:00 Completed [facility] SARS-COV-2 COVID-19 MODERNA 12+ YRS VACCINE 2020-06-01 00:00:00 Completed [facility] SARS-COV-2 COVID-19 MODERNA 12+ YRS VACCINE 2020-06-01 00:00:00 Completed [facility] SARS-COV-2 COVID-19 MODERNA 12+ YRS VACCINE 2020-06-01 00:00:00 Completed [facility] SARS-COV-2 COVID-19 MODERNA 12+ YRS VACCINE 2020-06-01 00:00:00 Completed [facility] SARS-COV-2 COVID-19 MODERNA 12+ YRS VACCINE 2020-06-01 00:00:00 Completed [facility] SARS-COV-2 COVID-19 MODERNA 12+ YRS VACCINE 2020-06-01 00:00:00 Completed [facility] SARS-COV-2 COVID-19 MODERNA 12+ YRS VACCINE 2020-06-01 00:00:00 Completed [facility] SARS-COV-2 COVID-19 MODERNA 12+ YRS VACCINE 2020-06-01 00:00:00 Completed [facility] SARS-COV-2 COVID-19 MODERNA 12+ YRS VACCINE 2020-06-01 00:00:00 Completed [facility] SARS-COV-2 COVID-19 MODERNA 12+ YRS VACCINE 2020-06-01 00:00:00 Completed [facility] SARS-COV-2 COVID-19 MODERNA 12+ YRS VACCINE 2020-05-04 00:00:00 Completed [facility] SARS-COV-2 COVID-19 MODERNA 12+ YRS VACCINE 2020-05-04 00:00:00 Completed [facility] SARS-COV-2 COVID-19 MODERNA 12+ YRS VACCINE 2020-05-04 00:00:00 Completed [facility] SARS-COV-2 COVID-19 MODERNA 12+ YRS VACCINE 2020-05-04 00:00:00 Completed [facility] SARS-COV-2 COVID-19 MODERNA 12+ YRS VACCINE 2020-05-04 00:00:00 Completed [facility] SARS-COV-2 COVID-19 MODERNA 12+ YRS VACCINE 2020-05-04 00:00:00 Completed [facility] SARS-COV-2 COVID-19 MODERNA 12+ YRS VACCINE 2020-05-04 00:00:00 Completed [facility] SARS-COV-2 COVID-19 MODERNA 12+ YRS VACCINE 2020-05-04 00:00:00 Completed [facility] SARS-COV-2 COVID-19 MODERNA 12+ YRS VACCINE 2020-05-04 00:00:00 Completed [facility] SARS-COV-2 COVID-19 MODERNA 12+ YRS VACCINE 2020-05-04 00:00:00 Completed [facility] SARS-COV-2 COVID-19 MODERNA 12+ YRS VACCINE 2020-05-04 00:00:00 Completed [facility] SARS-COV-2 COVID-19 MODERNA 12+ YRS VACCINE 2020-05-04 00:00:00 Completed [facility] SARS-COV-2 COVID-19 MODERNA 12+ YRS VACCINE 2020-05-04 00:00:00 Completed [facility] SARS-COV-2 COVID-19 MODERNA 12+ YRS VACCINE 2020-05-04 00:00:00 Completed [facility] SARS-COV-2 COVID-19 MODERNA 12+ YRS VACCINE 2020-05-04 00:00:00 Completed [facility] SARS-COV-2 COVID-19 MODERNA 12+ YRS VACCINE 2020-05-04 00:00:00 Completed [facility] SARS-COV-2 COVID-19 MODERNA 12+ YRS VACCINE 2020-05-04 00:00:00 Completed [facility] SARS-COV-2 COVID-19 MODERNA 12+ YRS VACCINE 2020-05-04 00:00:00 Completed [facility] SARS-COV-2 COVID-19 MODERNA 12+ YRS VACCINE 2020-05-04 00:00:00 Completed [facility] SARS-COV-2 COVID-19 MODERNA 12+ YRS VACCINE 2020-05-04 00:00:00 Completed [facility] SARS-COV-2 COVID-19 MODERNA 12+ YRS VACCINE 2020-05-04 00:00:00 Completed [facility] SARS-COV-2 COVID-19 MODERNA 12+ YRS VACCINE 2020-05-04 00:00:00 Completed [facility] SARS-COV-2 COVID-19 MODERNA 12+ YRS VACCINE 2020-05-04 00:00:00 Completed [facility] SARS-COV-2 COVID-19 MODERNA 12+ YRS VACCINE 2020-05-04 00:00:00 Completed [facility] SARS-COV-2 COVID-19 MODERNA 12+ YRS VACCINE 2020-05-04 00:00:00 Completed [facility] SARS-COV-2 COVID-19 MODERNA 12+ YRS VACCINE 2020-05-04 00:00:00 Completed [facility] SARS-COV-2 COVID-19 MODERNA 12+ YRS VACCINE 2020-05-04 00:00:00 Completed [facility] SARS-COV-2 COVID-19 MODERNA 12+ YRS VACCINE 2020-05-04 00:00:00 Completed [facility] SARS-COV-2 COVID-19 MODERNA 12+ YRS VACCINE 2020-05-04 00:00:00 Completed [facility] SARS-COV-2 COVID-19 MODERNA 12+ YRS VACCINE 2020-05-04 00:00:00 Completed [facility] SARS-COV-2 COVID-19 MODERNA 12+ YRS VACCINE 2020-05-04 00:00:00 Completed [facility] SARS-COV-2 COVID-19 MODERNA 12+ YRS VACCINE 2020-05-04 00:00:00 Completed [facility] SARS-COV-2 COVID-19 MODERNA 12+ YRS VACCINE 2020-05-04 00:00:00 Completed [facility] SARS-COV-2 COVID-19 MODERNA 12+ YRS VACCINE 2020-05-04 00:00:00 Completed [facility] SARS-COV-2 COVID-19 MODERNA 12+ YRS VACCINE 2020-05-04 00:00:00 Completed [facility] SARS-COV-2 COVID-19 MODERNA 12+ YRS VACCINE 2020-05-04 00:00:00 Completed [facility] SARS-COV-2 COVID-19 MODERNA 12+ YRS VACCINE 2020-05-04 00:00:00 Completed [facility] SARS-COV-2 COVID-19 MODERNA 12+ YRS VACCINE 2020-05-04 00:00:00 Completed [facility] SARS-COV-2 COVID-19 MODERNA 12+ YRS VACCINE 2020-05-04 00:00:00 Completed [facility] SARS-COV-2 COVID-19 MODERNA 12+ YRS VACCINE 2020-05-04 00:00:00 Completed [facility] SARS-COV-2 COVID-19 MODERNA 12+ YRS VACCINE 2020-05-04 00:00:00 Completed [facility] SARS-COV-2 COVID-19 MODERNA 12+ YRS VACCINE 2020-05-04 00:00:00 Completed [facility] SARS-COV-2 COVID-19 MODERNA 12+ YRS VACCINE 2020-05-04 00:00:00 Completed [facility] SARS-COV-2 COVID-19 MODERNA 12+ YRS VACCINE 2020-05-04 00:00:00 Completed [facility] SARS-COV-2 COVID-19 MODERNA 12+ YRS VACCINE 2020-05-04 00:00:00 Completed [facility] SARS-COV-2 COVID-19 MODERNA 12+ YRS VACCINE 2020-05-04 00:00:00 Completed [facility] SARS-COV-2 COVID-19 MODERNA 12+ YRS VACCINE 2020-05-04 00:00:00 Completed [facility] SARS-COV-2 COVID-19 MODERNA 12+ YRS VACCINE 2020-05-04 00:00:00 Completed [facility] SARS-COV-2 COVID-19 MODERNA 12+ YRS VACCINE 2020-05-04 00:00:00 Completed [facility] SARS-COV-2 COVID-19 MODERNA 12+ YRS VACCINE 2020-05-04 00:00:00 Completed [facility] SARS-COV-2 COVID-19 MODERNA 12+ YRS VACCINE 2020-05-04 00:00:00 Completed [facility] SARS-COV-2 COVID-19 MODERNA 12+ YRS VACCINE 2020-05-04 00:00:00 Completed [facility] SARS-COV-2 COVID-19 MODERNA 12+ YRS VACCINE 2020-05-04 00:00:00 Completed [facility] SARS-COV-2 COVID-19 MODERNA 12+ YRS VACCINE 2020-05-04 00:00:00 Completed [facility] SARS-COV-2 COVID-19 MODERNA 12+ YRS VACCINE 2020-05-04 00:00:00 Completed [facility] SARS-COV-2 COVID-19 MODERNA 12+ YRS VACCINE 2020-05-04 00:00:00 Completed [facility] SARS-COV-2 COVID-19 MODERNA 12+ YRS VACCINE 2020-05-04 00:00:00 Completed [facility] SARS-COV-2 COVID-19 MODERNA 12+ YRS VACCINE 2020-05-04 00:00:00 Completed [facility] SARS-COV-2 COVID-19 MODERNA 12+ YRS VACCINE 2020-05-04 00:00:00 Completed [facility] SARS-COV-2 COVID-19 MODERNA 12+ YRS VACCINE 2020-05-04 00:00:00 Completed [facility] SARS-COV-2 COVID-19 MODERNA 12+ YRS VACCINE 2020-05-04 00:00:00 Completed [facility] SARS-COV-2 COVID-19 MODERNA 12+ YRS VACCINE 2020-05-04 00:00:00 Completed [facility] SARS-COV-2 COVID-19 MODERNA 12+ YRS VACCINE 2020-05-04 00:00:00 Completed [facility] SARS-COV-2 COVID-19 MODERNA 12+ YRS VACCINE 2020-05-04 00:00:00 Completed [facility] SARS-COV-2 COVID-19 MODERNA 12+ YRS VACCINE 2020-05-04 00:00:00 Completed [facility] SARS-COV-2 COVID-19 MODERNA 12+ YRS VACCINE 2020-05-04 00:00:00 Completed [facility] SARS-COV-2 COVID-19 MODERNA 12+ YRS VACCINE 2020-05-04 00:00:00 Completed [facility] SARS-COV-2 COVID-19 MODERNA 12+ YRS VACCINE 2020-05-04 00:00:00 Completed [facility] SARS-COV-2 COVID-19 MODERNA 12+ YRS VACCINE 2020-05-04 00:00:00 Completed [facility] SARS-COV-2 COVID-19 MODERNA 12+ YRS VACCINE 2020-05-04 00:00:00 Completed [facility] SARS-COV-2 COVID-19 MODERNA 12+ YRS VACCINE 2020-05-04 00:00:00 Completed [facility] SARS-COV-2 COVID-19 MODERNA 12+ YRS VACCINE 2020-05-04 00:00:00 Completed [facility] SARS-COV-2 COVID-19 MODERNA 12+ YRS VACCINE 2020-05-04 00:00:00 Completed [facility] SARS-COV-2 COVID-19 MODERNA 12+ YRS VACCINE 2020-05-04 00:00:00 Completed [facility] SARS-COV-2 COVID-19 MODERNA 12+ YRS VACCINE 2020-05-04 00:00:00 Completed [facility] SARS-COV-2 COVID-19 MODERNA 12+ YRS VACCINE 2020-05-04 00:00:00 Completed [facility] SARS-COV-2 COVID-19 MODERNA 12+ YRS VACCINE 2020-05-04 00:00:00 Completed [facility] Influenza Virus Vaccine Quad IM 3+ YRS 2020-02-16 00:00:00 Completed [facility] Influenza Virus Vaccine Quad IM 3+ YRS 2020-02-16 00:00:00 Completed [facility] Influenza Virus Vaccine Quad IM 3+ YRS 2020-02-16 00:00:00 Completed [facility] Influenza Virus Vaccine Quad IM 3+ YRS 2020-02-16 00:00:00 Completed [facility] Influenza Virus Vaccine Quad IM 3+ YRS 2020-02-16 00:00:00 Completed [facility] Influenza Virus Vaccine Quad IM 3+ YRS 2020-02-16 00:00:00 Completed [facility] Influenza Virus Vaccine Quad IM 3+ YRS 2020-02-16 00:00:00 Completed [facility] Influenza Virus Vaccine Quad IM 3+ YRS 2020-02-16 00:00:00 Completed [facility] Influenza Virus Vaccine Quad IM 3+ YRS 2020-02-16 00:00:00 Completed [facility] Influenza Virus Vaccine Quad IM 3+ YRS 2020-02-16 00:00:00 Completed [facility] Influenza Virus Vaccine Quad IM 3+ YRS 2020-02-16 00:00:00 Completed [facility] Influenza Virus Vaccine Quad IM 3+ YRS 2020-02-16 00:00:00 Completed [facility] Influenza Virus Vaccine Quad IM 3+ YRS 2020-02-16 00:00:00 Completed [facility] Influenza Virus Vaccine Quad IM 3+ YRS 2020-02-16 00:00:00 Completed [facility] Influenza Virus Vaccine Quad IM 3+ YRS 2020-02-16 00:00:00 Completed [facility] [facility] Influ[facility] Virus Vaccine Quad IM 3+ YRS 2020-02-16 00:00:00 Completed [facility] Influenza Virus Vaccine Quad IM 3+ YRS 2020-02-16 00:00:00 Completed [facility] Influenza Virus Vaccine Quad IM 3+ YRS 2020-02-16 00:00:00 Completed [facility] Influenza Virus Vaccine Quad IM 3+ YRS 2020-02-16 00:00:00 Completed [facility] Influenza Virus Vaccine Quad IM 3+ YRS 2020-02-16 00:00:00 Completed [facility] Influenza Virus Vaccine Quad IM 3+ YRS 2020-02-16 00:00:00 Completed [facility] Influenza Virus Vaccine Quad IM 3+ YRS 2020-02-16 00:00:00 Completed [facility] Influenza Virus Vaccine Quad IM 3+ YRS 2020-02-16 00:00:00 Completed [facility] Influenza Virus Vaccine Quad IM 3+ YRS 2020-02-16 00:00:00 Completed [facility] Influenza Virus Vaccine Quad IM 3+ YRS 2020-02-16 00:00:00 Completed [facility] Influenza Virus Vaccine Quad IM 3+ YRS 2020-02-16 00:00:00 Completed [facility] Influenza Virus Vaccine Quad IM 3+ YRS 2020-02-16 00:00:00 Completed [facility] Influenza Virus Vaccine Quad IM 3+ YRS 2020-02-16 00:00:00 Completed [facility] Influenza Virus Vaccine Quad IM 3+ YRS 2020-02-16 00:00:00 Completed [facility] Influenza Virus Vaccine Quad IM 3+ YRS 2020-02-16 00:00:00 Completed [facility] Influenza Virus Vaccine Quad IM 3+ YRS 2020-02-16 00:00:00 Completed [facility] Influenza Virus Vaccine Quad IM 3+ YRS 2020-02-16 00:00:00 Completed [facility] Influenza Virus Vaccine Quad IM 3+ YRS 2020-02-16 00:00:00 Completed [facility] Influenza Virus Vaccine Quad IM 3+ YRS 2020-02-16 00:00:00 Completed [facility] Influenza Virus Vaccine Quad IM 3+ YRS 2020-02-16 00:00:00 Completed [facility] Influenza Virus Vaccine Quad IM 3+ YRS 2020-02-16 00:00:00 Completed [facility] Influenza Virus Vaccine Quad IM 3+ YRS 2020-02-16 00:00:00 Completed [facility] Influenza Virus Vaccine Quad IM 3+ YRS 2020-02-16 00:00:00 Completed [facility] Influenza Virus Vaccine Quad IM 3+ YRS 2020-02-16 00:00:00 Completed [facility] Influenza Virus Vaccine Quad IM 3+ YRS 2020-02-16 00:00:00 Completed [facility] Influenza Virus Vaccine Quad IM 3+ YRS 2020-02-16 00:00:00 Completed [facility] Influenza Virus Vaccine Quad IM 3+ YRS 2020-02-16 00:00:00 Completed [facility] Influenza Virus Vaccine Quad IM 3+ YRS 2020-02-16 00:00:00 Completed [facility] Influenza Virus Vaccine Quad IM 3+ YRS 2020-02-16 00:00:00 Completed [facility] Influenza Virus Vaccine Quad IM 3+ YRS 2020-02-16 00:00:00 Completed [facility] Influenza Virus Vaccine Quad IM 3+ YRS 2020-02-16 00:00:00 Completed [facility] Influenza Virus Vaccine Quad IM 3+ YRS 2020-02-16 00:00:00 Completed [facility] Influenza Virus Vaccine Quad IM 3+ YRS 2020-02-16 00:00:00 Completed [facility] Influenza Virus Vaccine Quad IM 3+ YRS 2020-02-16 00:00:00 Completed [facility] Influenza Virus Vaccine Quad IM 3+ YRS 2020-02-16 00:00:00 Completed [facility] Influenza Virus Vaccine Quad IM 3+ YRS 2020-02-16 00:00:00 Completed [facility] Influenza Virus Vaccine Quad IM 3+ YRS 2020-02-16 00:00:00 Completed [facility] Influenza Virus Vaccine Quad IM 3+ YRS 2020-02-16 00:00:00 Completed [facility] Influenza Virus Vaccine Quad IM 3+ YRS 2020-02-16 00:00:00 Completed [facility] Influenza Virus Vaccine Quad IM 3+ YRS 2020-02-16 00:00:00 Completed [facility] Influenza Virus Vaccine Quad IM 3+ YRS 2020-02-16 00:00:00 Completed [facility] Influenza Virus Vaccine Quad IM 3+ YRS 2020-02-16 00:00:00 Completed [facility] Influenza Virus Vaccine Quad IM 3+ YRS 2020-02-16 00:00:00 Completed [facility] Influenza Virus Vaccine Quad IM 3+ YRS 2020-02-16 00:00:00 Completed [facility] Influenza Virus Vaccine Quad IM 3+ YRS 2020-02-16 00:00:00 Completed [facility] Influenza Virus Vaccine Quad IM 3+ YRS 2020-02-16 00:00:00 Completed [facility] Influenza Virus Vaccine Quad IM 3+ YRS 2020-02-16 00:00:00 Completed [facility] Influenza Virus Vaccine Quad IM 3+ YRS 2020-02-16 00:00:00 Completed [facility] Influenza Virus Vaccine Quad IM 3+ YRS 2020-02-16 00:00:00 Completed [facility] Influenza Virus Vaccine Quad IM 3+ YRS 2020-02-16 00:00:00 Completed [facility] Influenza Virus Vaccine Quad IM 3+ YRS 2020-02-16 00:00:00 Completed [facility] Influenza Virus Vaccine Quad IM 3+ YRS 2020-02-16 00:00:00 Completed [facility] Influenza Virus Vaccine Quad IM 3+ YRS 2020-02-16 00:00:00 Completed [facility] Influenza Virus Vaccine Quad IM 3+ YRS 2020-02-16 00:00:00 Completed [facility] Influenza Virus Vaccine Quad IM 3+ YRS 2020-02-16 00:00:00 Completed [facility] Influenza Virus Vaccine Quad IM 3+ YRS 2020-02-16 00:00:00 Completed [facility] Influenza Virus Vaccine Quad IM 3+ YRS 2020-02-16 00:00:00 Completed [facility] Influenza Virus Vaccine Quad IM 3+ YRS 2020-02-16 00:00:00 Completed [facility] Influenza Virus Vaccine Quad IM 3+ YRS 2020-02-16 00:00:00 Completed [facility] Influenza Virus Vaccine Quad IM 3+ YRS 2020-02-16 00:00:00 Completed [facility] Influenza Virus Vaccine Quad IM 3+ YRS 2020-02-16 00:00:00 Completed [facility] Influenza Virus Vaccine Quad IM 3+ YRS 2020-02-16 00:00:00 Completed [facility] Influenza Virus Vaccine 2019-02-11 00:00:00 Completed [facility] Influenza Virus Vaccine 2019-02-11 00:00:00 Completed [facility] Influenza Virus Vaccine 2019-02-11 00:00:00 Completed [facility] Influenza Virus Vaccine 2019-02-11 00:00:00 Completed [facility] Influenza Virus Vaccine 2019-02-11 00:00:00 Completed [facility] Influenza Virus Vaccine 2019-02-11 00:00:00 Completed [facility] Influenza Virus Vaccine 2019-02-11 00:00:00 Completed [facility] Influenza Virus Vaccine 2019-02-11 00:00:00 Completed [facility] Influenza Virus Vaccine 2019-02-11 00:00:00 Completed [facility] Influenza Virus Vaccine 2019-02-11 00:00:00 Completed [facility] Influenza Virus Vaccine 2019-02-11 00:00:00 Completed [facility] Influenza Virus Vaccine 2019-02-11 00:00:00 Completed [facility] Influenza Virus Vaccine 2019-02-11 00:00:00 Completed [facility] Influenza Virus Vaccine 2019-02-11 00:00:00 Completed [facility] Influenza Virus Vaccine 2019-02-11 00:00:00 Completed [facility] Influenza Virus Vaccine 2019-02-11 00:00:00 Completed [facility] Influenza Virus Vaccine 2019-02-11 00:00:00 Completed [facility] Influenza Virus Vaccine 2019-02-11 00:00:00 Completed [facility] Influenza Virus Vaccine 2019-02-11 00:00:00 Completed [facility] Influenza Virus Vaccine 2019-02-11 00:00:00 Completed [facility] Influenza Virus Vaccine 2019-02-11 00:00:00 Completed [facility] Influenza Virus Vaccine 2019-02-11 00:00:00 Completed [facility] Influenza Virus Vaccine 2019-02-11 00:00:00 Completed [facility] Influenza Virus Vaccine 2019-02-11 00:00:00 Completed [facility] Influenza Virus Vaccine 2019-02-11 00:00:00 Completed [facility] Influenza Virus Vaccine 2019-02-11 00:00:00 Completed [facility] Influenza Virus Vaccine 2019-02-11 00:00:00 Completed [facility] Influenza Virus Vaccine 2019-02-11 00:00:00 Completed [facility] Influenza Virus Vaccine 2019-02-11 00:00:00 Completed [facility] Influenza Virus Vaccine 2019-02-11 00:00:00 Completed [facility] Influenza Virus Vaccine 2019-02-11 00:00:00 Completed [facility] Influenza Virus Vaccine 2019-02-11 00:00:00 Completed [facility] Influenza Virus Vaccine 2019-02-11 00:00:00 Completed [facility] Influenza Virus Vaccine 2019-02-11 00:00:00 Completed [facility] Influenza Virus Vaccine 2019-02-11 00:00:00 Completed [facility] Influenza Virus Vaccine 2019-02-11 00:00:00 Completed [facility] Influenza Virus Vaccine 2019-02-11 00:00:00 Completed [facility] Influenza Virus Vaccine 2019-02-11 00:00:00 Completed [facility] Influenza Virus Vaccine 2019-02-11 00:00:00 Completed [facility] Influenza Virus Vaccine 2019-02-11 00:00:00 Completed [facility] Influenza Virus Vaccine 2019-02-11 00:00:00 Completed [facility] Influenza Virus Vaccine 2019-02-11 00:00:00 Completed [facility] Influenza Virus Vaccine 2019-02-11 00:00:00 Completed [facility] Influenza Virus Vaccine 2019-02-11 00:00:00 Completed [facility] Influenza Virus Vaccine 2019-02-11 00:00:00 Completed [facility] Influenza Virus Vaccine 2019-02-11 00:00:00 Completed [facility] Influenza Virus Vaccine 2019-02-11 00:00:00 Completed [facility] Influenza Virus Vaccine 2019-02-11 00:00:00 Completed [facility] Influenza Virus Vaccine 2019-02-11 00:00:00 Completed [facility] Influenza Virus Vaccine 2019-02-11 00:00:00 Completed [facility] Influenza Virus Vaccine 2019-02-11 00:00:00 Completed [facility] Influenza Virus Vaccine 2019-02-11 00:00:00 Completed [facility] Influenza Virus Vaccine 2019-02-11 00:00:00 Completed [facility] Influenza Virus Vaccine 2019-02-11 00:00:00 Completed [facility] Influenza Virus Vaccine 2019-02-11 00:00:00 Completed [facility] Influenza Virus Vaccine 2019-02-11 00:00:00 Completed [facility] Influenza Virus Vaccine 2019-02-11 00:00:00 Completed [facility] Influenza Virus Vaccine 2019-02-11 00:00:00 Completed [facility] Influenza Virus Vaccine 2019-02-11 00:00:00 Completed [facility] Influenza Virus Vaccine 2019-02-11 00:00:00 Completed [facility] Influenza Virus Vaccine 2019-02-11 00:00:00 Completed [facility] Influenza Virus Vaccine 2019-02-11 00:00:00 Completed [facility] Influenza Virus Vaccine 2019-02-11 00:00:00 Completed [facility] Influenza Virus Vaccine 2019-02-11 00:00:00 Completed [facility] Influenza Virus Vaccine 2019-02-11 00:00:00 Completed [facility] Influenza Virus Vaccine 2019-02-11 00:00:00 Completed [facility] Influenza Virus Vaccine 2019-02-11 00:00:00 Completed [facility] Influenza Virus Vaccine 2019-02-11 00:00:00 Completed [facility] Influenza Virus Vaccine 2019-02-11 00:00:00 Completed [facility] Influenza Virus Vaccine 2019-02-11 00:00:00 Completed [facility] Influenza Virus Vaccine 2019-02-11 00:00:00 Completed [facility] Influenza Virus Vaccine 2019-02-11 00:00:00 Completed [facility] Influenza Virus Vaccine 2019-02-11 00:00:00 Completed [facility] Influenza Virus Vaccine 2019-02-11 00:00:00 Completed [facility] Influenza Virus Vaccine 2019-02-11 00:00:00 Completed [facility] Influenza Virus Vaccine 2019-02-11 00:00:00 Completed [facility] Influenza Virus Vaccine 2019-02-11 00:00:00 Completed [facility] Influenza Virus Vaccine 2019-02-11 00:00:00 Completed Influenza Virus Vaccine 2017-12-25 00:00:00 Completed [facility] Influenza Virus Vaccine 2017-12-25 00:00:00 Completed [facility] Influenza Virus Vaccine 2017-12-25 00:00:00 Completed [facility] Influenza Virus Vaccine 2017-12-25 00:00:00 Completed [facility] Influenza Virus Vaccine 2017-12-25 00:00:00 Completed [facility] Influenza Virus Vaccine 2017-12-25 00:00:00 Completed [facility] Influenza Virus Vaccine 2017-12-25 00:00:00 Completed [facility] Influenza Virus Vaccine 2017-12-25 00:00:00 Completed [facility] Influenza Virus Vaccine 2017-12-25 00:00:00 Completed [facility] Influenza Virus Vaccine 2017-12-25 00:00:00 Completed [facility] Influenza Virus Vaccine 2017-12-25 00:00:00 Completed [facility] Influenza Virus Vaccine 2017-12-25 00:00:00 Completed [facility] Influenza Virus Vaccine 2017-12-25 00:00:00 Completed [facility] Influenza Virus Vaccine 2017-12-25 00:00:00 Completed [facility] Influenza Virus Vaccine 2017-12-25 00:00:00 Completed [facility] Influenza Virus Vaccine 2017-12-25 00:00:00 Completed [facility] Influenza Virus Vaccine 2017-12-25 00:00:00 Completed [facility] Influenza Virus Vaccine 2017-12-25 00:00:00 Completed [facility] Influenza Virus Vaccine 2017-12-25 00:00:00 Completed [facility] Influenza Virus Vaccine 2017-12-25 00:00:00 Completed [facility] Influenza Virus Vaccine 2017-12-25 00:00:00 Completed [facility] Influenza Virus Vaccine 2017-12-25 00:00:00 Completed [facility] Influenza Virus Vaccine 2017-12-25 00:00:00 Completed [facility] Influenza Virus Vaccine 2017-12-25 00:00:00 Completed [facility] Influenza Virus Vaccine 2017-12-25 00:00:00 Completed [facility] Influenza Virus Vaccine 2017-12-25 00:00:00 Completed [facility] Influenza Virus Vaccine 2017-12-25 00:00:00 Completed [facility] Influenza Virus Vaccine 2017-12-25 00:00:00 Completed [facility] Influenza Virus Vaccine 2017-12-25 00:00:00 Completed [facility] Influenza Virus Vaccine 2017-12-25 00:00:00 Completed [facility] Influenza Virus Vaccine 2017-12-25 00:00:00 Completed [facility] Influenza Virus Vaccine 2017-12-25 00:00:00 Completed [facility] Influenza Virus Vaccine 2017-12-25 00:00:00 Completed [facility] Influenza Virus Vaccine 2017-12-25 00:00:00 Completed [facility] Influenza Virus Vaccine 2017-12-25 00:00:00 Completed [facility] Influenza Virus Vaccine 2017-12-25 00:00:00 Completed [facility] Influenza Virus Vaccine 2017-12-25 00:00:00 Completed [facility] Influenza Virus Vaccine 2017-12-25 00:00:00 Completed [facility] Influenza Virus Vaccine 2017-12-25 00:00:00 Completed [facility] Influenza Virus Vaccine 2017-12-25 00:00:00 Completed [facility] Influenza Virus Vaccine 2017-12-25 00:00:00 Completed [facility] Influenza Virus Vaccine 2017-12-25 00:00:00 Completed [facility] Influenza Virus Vaccine 2017-12-25 00:00:00 Completed [facility] Influenza Virus Vaccine 2017-12-25 00:00:00 Completed [facility] Influenza Virus Vaccine 2017-12-25 00:00:00 Completed [facility] Influenza Virus Vaccine 2017-12-25 00:00:00 Completed [facility] Influenza Virus Vaccine 2017-12-25 00:00:00 Completed [facility] Influenza Virus Vaccine 2017-12-25 00:00:00 Completed [facility] Influenza Virus Vaccine 2017-12-25 00:00:00 Completed [facility] Influenza Virus Vaccine 2017-12-25 00:00:00 Completed [facility] Influenza Virus Vaccine 2017-12-25 00:00:00 Completed [facility] Influenza Virus Vaccine 2017-12-25 00:00:00 Completed [facility] Influenza Virus Vaccine 2017-12-25 00:00:00 Completed [facility] Influenza Virus Vaccine 2017-12-25 00:00:00 Completed [facility] Influenza Virus Vaccine 2017-12-25 00:00:00 Completed [facility] Influenza Virus Vaccine 2017-12-25 00:00:00 Completed [facility] Influenza Virus Vaccine 2017-12-25 00:00:00 Completed [facility] Influenza Virus Vaccine 2017-12-25 00:00:00 Completed [facility] Influenza Virus Vaccine 2017-12-25 00:00:00 Completed [facility] Influenza Virus Vaccine 2017-12-25 00:00:00 Completed [facility] Influenza Virus Vaccine 2017-12-25 00:00:00 Completed [facility] Influenza Virus Vaccine 2017-12-25 00:00:00 Completed [facility] Influenza Virus Vaccine 2017-12-25 00:00:00 Completed [facility] Influenza Virus Vaccine 2017-12-25 00:00:00 Completed [facility] Influenza Virus Vaccine 2017-12-25 00:00:00 Completed [facility] Influenza Virus Vaccine 2017-12-25 00:00:00 Completed [facility] Influenza Virus Vaccine 2017-12-25 00:00:00 Completed [facility] Influenza Virus Vaccine 2017-12-25 00:00:00 Completed [facility] Influenza Virus Vaccine 2017-12-25 00:00:00 Completed [facility] Influenza Virus Vaccine 2017-12-25 00:00:00 Completed [facility] Influenza Virus Vaccine 2017-12-25 00:00:00 Completed [facility] Influenza Virus Vaccine 2017-12-25 00:00:00 Completed [facility] Influenza Virus Vaccine 2017-12-25 00:00:00 Completed [facility] Influenza Virus Vaccine 2017-12-25 00:00:00 Completed [facility] Influenza Virus Vaccine 2017-12-25 00:00:00 Completed [facility] Influenza Virus Vaccine 2017-12-25 00:00:00 Completed [facility] Influenza Virus Vaccine 2017-12-25 00:00:00 Completed [facility] Influenza Virus Vaccine 2017-12-25 00:00:00 Completed Influenza Virus Vaccine (3+ yrs) 2014-01-17 00:00:00 Completed [facility] Influenza Virus Vaccine (3+ yrs) 2014-01-17 00:00:00 Completed [facility] Influenza Virus Vaccine (3+ yrs) 2014-01-17 00:00:00 Completed [facility] Influenza Virus Vaccine (3+ yrs) 2014-01-17 00:00:00 Completed [facility] Influenza Virus Vaccine (3+ yrs) 2014-01-17 00:00:00 Completed [facility] Influenza Virus Vaccine (3+ yrs) 2014-01-17 00:00:00 Completed [facility] Influenza Virus Vaccine (3+ yrs) 2014-01-17 00:00:00 Completed [facility] Influenza Virus Vaccine (3+ yrs) 2014-01-17 00:00:00 Completed [facility] Influenza Virus Vaccine (3+ yrs) 2014-01-17 00:00:00 Completed [facility] Influenza Virus Vaccine (3+ yrs) 2014-01-17 00:00:00 Completed [facility] Influenza Virus Vaccine (3+ yrs) 2014-01-17 00:00:00 Completed [facility] Influenza Virus Vaccine (3+ yrs) 2014-01-17 00:00:00 Completed [facility] Influenza Virus Vaccine (3+ yrs) 2014-01-17 00:00:00 Completed [facility] Influenza Virus Vaccine (3+ yrs) 2014-01-17 00:00:00 Completed [facility] Influenza Virus Vaccine (3+ yrs) 2014-01-17 00:00:00 Completed [facility] Influenza Virus Vaccine (3+ yrs) 2014-01-17 00:00:00 Completed [facility] Influenza Virus Vaccine (3+ yrs) 2014-01-17 00:00:00 Completed [facility] Influenza Virus Vaccine (3+ yrs) 2014-01-17 00:00:00 Completed [facility] Influenza Virus Vaccine (3+ yrs) 2014-01-17 00:00:00 Completed [facility] Influenza Virus Vaccine (3+ yrs) 2014-01-17 00:00:00 Completed [facility] Influenza Virus Vaccine (3+ yrs) 2014-01-17 00:00:00 Completed [facility] Influenza Virus Vaccine (3+ yrs) 2014-01-17 00:00:00 Completed [facility] Influenza Virus Vaccine (3+ yrs) 2014-01-17 00:00:00 Completed [facility] Influenza Virus Vaccine (3+ yrs) 2014-01-17 00:00:00 Completed [facility] Influenza Virus Vaccine (3+ yrs) 2014-01-17 00:00:00 Completed [facility] Influenza Virus Vaccine (3+ yrs) 2014-01-17 00:00:00 Completed [facility] Influenza Virus Vaccine (3+ yrs) 2014-01-17 00:00:00 Completed [facility] Influenza Virus Vaccine (3+ yrs) 2014-01-17 00:00:00 Completed [facility] Influenza Virus Vaccine (3+ yrs) 2014-01-17 00:00:00 Completed [facility] Influenza Virus Vaccine (3+ yrs) 2014-01-17 00:00:00 Completed [facility] Influenza Virus Vaccine (3+ yrs) 2014-01-17 00:00:00 Completed [facility] Influenza Virus Vaccine (3+ yrs) 2014-01-17 00:00:00 Completed [facility] Influenza Virus Vaccine (3+ yrs) 2014-01-17 00:00:00 Completed [facility] Influenza Virus Vaccine (3+ yrs) 2014-01-17 00:00:00 Completed [facility] Influenza Virus Vaccine (3+ yrs) 2014-01-17 00:00:00 Completed [facility] Influenza Virus Vaccine (3+ yrs) 2014-01-17 00:00:00 Completed [facility] Influenza Virus Vaccine (3+ yrs) 2014-01-17 00:00:00 Completed [facility] Influenza Virus Vaccine (3+ yrs) 2014-01-17 00:00:00 Completed [facility] Influenza Virus Vaccine (3+ yrs) 2014-01-17 00:00:00 Completed [facility] Influenza Virus Vaccine (3+ yrs) 2014-01-17 00:00:00 Completed [facility] Influenza Virus Vaccine (3+ yrs) 2014-01-17 00:00:00 Completed [facility] Influenza Virus Vaccine (3+ yrs) 2014-01-17 00:00:00 Completed [facility] Influenza Virus Vaccine (3+ yrs) 2014-01-17 00:00:00 Completed [facility] Influenza Virus Vaccine (3+ yrs) 2014-01-17 00:00:00 Completed [facility] Influenza Virus Vaccine (3+ yrs) 2014-01-17 00:00:00 Completed [facility] Influenza Virus Vaccine (3+ yrs) 2014-01-17 00:00:00 Completed [facility] Influenza Virus Vaccine (3+ yrs) 2014-01-17 00:00:00 Completed [facility] Influenza Virus Vaccine (3+ yrs) 2014-01-17 00:00:00 Completed [facility] Influenza Virus Vaccine (3+ yrs) 2014-01-17 00:00:00 Completed [facility] Influenza Virus Vaccine (3+ yrs) 2014-01-17 00:00:00 Completed [facility] Influenza Virus Vaccine (3+ yrs) 2014-01-17 00:00:00 Completed [facility] Influenza Virus Vaccine (3+ yrs) 2014-01-17 00:00:00 Completed [facility] Influenza Virus Vaccine (3+ yrs) 2014-01-17 00:00:00 Completed [facility] Influenza Virus Vaccine (3+ yrs) 2014-01-17 00:00:00 Completed [facility] Influenza Virus Vaccine (3+ yrs) 2014-01-17 00:00:00 Completed [facility] Influenza Virus Vaccine (3+ yrs) 2014-01-17 00:00:00 Completed [facility] Influenza Virus Vaccine (3+ yrs) 2014-01-17 00:00:00 Completed [facility] Influenza Virus Vaccine (3+ yrs) 2014-01-17 00:00:00 Completed [facility] Influenza Virus Vaccine (3+ yrs) 2014-01-17 00:00:00 Completed [facility] Influenza Virus Vaccine (3+ yrs) 2014-01-17 00:00:00 Completed [facility] Influenza Virus Vaccine (3+ yrs) 2014-01-17 00:00:00 Completed [facility] Influenza Virus Vaccine (3+ yrs) 2014-01-17 00:00:00 Completed [facility] Influenza Virus Vaccine (3+ yrs) 2014-01-17 00:00:00 Completed [facility] Influenza Virus Vaccine (3+ yrs) 2014-01-17 00:00:00 Completed [facility] Influenza Virus Vaccine (3+ yrs) 2014-01-17 00:00:00 Completed [facility] Influenza Virus Vaccine (3+ yrs) 2014-01-17 00:00:00 Completed [facility] Influenza Virus Vaccine (3+ yrs) 2014-01-17 00:00:00 Completed [facility] Influenza Virus Vaccine (3+ yrs) 2014-01-17 00:00:00 Completed [facility] Influenza Virus Vaccine (3+ yrs) 2014-01-17 00:00:00 Completed [facility] Influenza Virus Vaccine (3+ yrs) 2014-01-17 00:00:00 Completed [facility] Influenza Virus Vaccine (3+ yrs) 2014-01-17 00:00:00 Completed [facility] Influenza Virus Vaccine (3+ yrs) 2014-01-17 00:00:00 Completed [facility] Influenza Virus Vaccine (3+ yrs) 2014-01-17 00:00:00 Completed [facility] Influenza Virus Vaccine (3+ yrs) 2014-01-17 00:00:00 Completed [facility] Influenza Virus Vaccine (3+ yrs) 2014-01-17 00:00:00 Completed [facility] Influenza Virus Vaccine (3+ yrs) 2014-01-17 00:00:00 Completed [facility] Influenza Virus Vaccine (3+ yrs) 2014-01-17 00:00:00 Completed [facility] Influenza Virus Vaccine (3+ yrs) 2013-03-15 00:00:00 Completed [facility] Influenza Virus Vaccine (3+ yrs) 2013-03-15 00:00:00 Completed [facility] Influenza Virus Vaccine (3+ yrs) 2013-03-15 00:00:00 Completed [facility] Influenza Virus Vaccine (3+ yrs) 2013-03-15 00:00:00 Completed [facility] Influenza Virus Vaccine (3+ yrs) 2013-03-15 00:00:00 Completed [facility] Influenza Virus Vaccine (3+ yrs) 2013-03-15 00:00:00 Completed [facility] Influenza Virus Vaccine (3+ yrs) 2013-03-15 00:00:00 Completed [facility] Influenza Virus Vaccine (3+ yrs) 2013-03-15 00:00:00 Completed [facility] Influenza Virus Vaccine (3+ yrs) 2013-03-15 00:00:00 Completed [facility] Influenza Virus Vaccine (3+ yrs) 2013-03-15 00:00:00 Completed [facility] Influenza Virus Vaccine (3+ yrs) 2013-03-15 00:00:00 Completed [facility] Influenza Virus Vaccine (3+ yrs) 2013-03-15 00:00:00 Completed [facility] Influenza Virus Vaccine (3+ yrs) 2013-03-15 00:00:00 Completed [facility] Influenza Virus Vaccine (3+ yrs) 2013-03-15 00:00:00 Completed [facility] Influenza Virus Vaccine (3+ yrs) 2013-03-15 00:00:00 Completed [facility] Influenza Virus Vaccine (3+ yrs) 2013-03-15 00:00:00 Completed [facility] Influenza Virus Vaccine (3+ yrs) 2013-03-15 00:00:00 Completed [facility] Influenza Virus Vaccine (3+ yrs) 2013-03-15 00:00:00 Completed [facility] Influenza Virus Vaccine (3+ yrs) 2013-03-15 00:00:00 Completed [facility] Influenza Virus Vaccine (3+ yrs) 2013-03-15 00:00:00 Completed [facility] Influenza Virus Vaccine (3+ yrs) 2013-03-15 00:00:00 Completed [facility] Influenza Virus Vaccine (3+ yrs) 2013-03-15 00:00:00 Completed [facility] Influenza Virus Vaccine (3+ yrs) 2013-03-15 00:00:00 Completed [facility] Influenza Virus Vaccine (3+ yrs) 2013-03-15 00:00:00 Completed [facility] Influenza Virus Vaccine (3+ yrs) 2013-03-15 00:00:00 Completed [facility] Influenza Virus Vaccine (3+ yrs) 2013-03-15 00:00:00 Completed [facility] Influenza Virus Vaccine (3+ yrs) 2013-03-15 00:00:00 Completed [facility] Influenza Virus Vaccine (3+ yrs) 2013-03-15 00:00:00 Completed [facility] Influenza Virus Vaccine (3+ yrs) 2013-03-15 00:00:00 Completed [facility] Influenza Virus Vaccine (3+ yrs) 2013-03-15 00:00:00 Completed [facility] Influenza Virus Vaccine (3+ yrs) 2013-03-15 00:00:00 Completed [facility] Influenza Virus Vaccine (3+ yrs) 2013-03-15 00:00:00 Completed [facility] Influenza Virus Vaccine (3+ yrs) 2013-03-15 00:00:00 Completed [facility] Influenza Virus Vaccine (3+ yrs) 2013-03-15 00:00:00 Completed [facility] Influenza Virus Vaccine (3+ yrs) 2013-03-15 00:00:00 Completed [facility] Influenza Virus Vaccine (3+ yrs) 2013-03-15 00:00:00 Completed [facility] Influenza Virus Vaccine (3+ yrs) 2013-03-15 00:00:00 Completed [facility] Influenza Virus Vaccine (3+ yrs) 2013-03-15 00:00:00 Completed [facility] Influenza Virus Vaccine (3+ yrs) 2013-03-15 00:00:00 Completed [facility] Influenza Virus Vaccine (3+ yrs) 2013-03-15 00:00:00 Completed [facility] Influenza Virus Vaccine (3+ yrs) 2013-03-15 00:00:00 Completed [facility] Influenza Virus Vaccine (3+ yrs) 2013-03-15 00:00:00 Completed [facility] Influenza Virus Vaccine (3+ yrs) 2013-03-15 00:00:00 Completed [facility] Influenza Virus Vaccine (3+ yrs) 2013-03-15 00:00:00 Completed [facility] Influenza Virus Vaccine (3+ yrs) 2013-03-15 00:00:00 Completed [facility] Influenza Virus Vaccine (3+ yrs) 2013-03-15 00:00:00 Completed [facility] Influenza Virus Vaccine (3+ yrs) 2013-03-15 00:00:00 Completed [facility] Influenza Virus Vaccine (3+ yrs) 2013-03-15 00:00:00 Completed [facility] Influenza Virus Vaccine (3+ yrs) 2013-03-15 00:00:00 Completed [facility] Influenza Virus Vaccine (3+ yrs) 2013-03-15 00:00:00 Completed [facility] Influenza Virus Vaccine (3+ yrs) 2013-03-15 00:00:00 Completed [facility] Influenza Virus Vaccine (3+ yrs) 2013-03-15 00:00:00 Completed [facility] Influenza Virus Vaccine (3+ yrs) 2013-03-15 00:00:00 Completed [facility] Influenza Virus Vaccine (3+ yrs) 2013-03-15 00:00:00 Completed [facility] Influenza Virus Vaccine (3+ yrs) 2013-03-15 00:00:00 Completed [facility] Influenza Virus Vaccine (3+ yrs) 2013-03-15 00:00:00 Completed [facility] Influenza Virus Vaccine (3+ yrs) 2013-03-15 00:00:00 Completed [facility] Influenza Virus Vaccine (3+ yrs) 2013-03-15 00:00:00 Completed [facility] Influenza Virus Vaccine (3+ yrs) 2013-03-15 00:00:00 Completed [facility] Influenza Virus Vaccine (3+ yrs) 2013-03-15 00:00:00 Completed [facility] Influenza Virus Vaccine (3+ yrs) 2013-03-15 00:00:00 Completed [facility] Influenza Virus Vaccine (3+ yrs) 2013-03-15 00:00:00 Completed [facility] Influenza Virus Vaccine (3+ yrs) 2013-03-15 00:00:00 Completed [facility] Influenza Virus Vaccine (3+ yrs) 2013-03-15 00:00:00 Completed [facility] Influenza Virus Vaccine (3+ yrs) 2013-03-15 00:00:00 Completed [facility] Influenza Virus Vaccine (3+ yrs) 2013-03-15 00:00:00 Completed [facility] Influenza Virus Vaccine (3+ yrs) 2013-03-15 00:00:00 Completed [facility] Influenza Virus Vaccine (3+ yrs) 2013-03-15 00:00:00 Completed [facility] Influenza Virus Vaccine (3+ yrs) 2013-03-15 00:00:00 Completed [facility] Influenza Virus Vaccine (3+ yrs) 2013-03-15 00:00:00 Completed [facility] Influenza Virus Vaccine (3+ yrs) 2013-03-15 00:00:00 Completed [facility] Influenza Virus Vaccine (3+ yrs) 2013-03-15 00:00:00 Completed [facility] Influenza Virus Vaccine (3+ yrs) 2013-03-15 00:00:00 Completed [facility] Influenza Virus Vaccine (3+ yrs) 2013-03-15 00:00:00 Completed [facility] Influenza Virus Vaccine (3+ yrs) 2013-03-15 00:00:00 Completed [facility] Influenza Virus Vaccine (3+ yrs) 2013-03-15 00:00:00 Completed [facility] Influenza Virus Vaccine (3+ yrs) 2013-03-15 00:00:00 Completed [facility] Influenza Virus Vaccine 2012-03-02 00:00:00 Completed [facility] Influenza Virus Vaccine 2012-03-02 00:00:00 Completed [facility] Influenza Virus Vaccine 2012-03-02 00:00:00 Completed [facility] Influenza Virus Vaccine 2012-03-02 00:00:00 Completed [facility] Influenza Virus Vaccine 2012-03-02 00:00:00 Completed [facility] Influenza Virus Vaccine 2012-03-02 00:00:00 Completed [facility] Influenza Virus Vaccine 2012-03-02 00:00:00 Completed [facility] Influenza Virus Vaccine 2012-03-02 00:00:00 Completed [facility] Influenza Virus Vaccine 2012-03-02 00:00:00 Completed [facility] Influenza Virus Vaccine 2012-03-02 00:00:00 Completed [facility] Influenza Virus Vaccine 2012-03-02 00:00:00 Completed [facility] Influenza Virus Vaccine 2012-03-02 00:00:00 Completed [facility] Influenza Virus Vaccine 2012-03-02 00:00:00 Completed [facility] Influenza Virus Vaccine 2012-03-02 00:00:00 Completed [facility] Influenza Virus Vaccine 2012-03-02 00:00:00 Completed [facility] Influenza Virus Vaccine 2012-03-02 00:00:00 Completed [facility] Influenza Virus Vaccine 2012-03-02 00:00:00 Completed [facility] Influenza Virus Vaccine 2012-03-02 00:00:00 Completed [facility] Influenza Virus Vaccine 2012-03-02 00:00:00 Completed [facility] Influenza Virus Vaccine 2012-03-02 00:00:00 Completed [facility] Influenza Virus Vaccine 2012-03-02 00:00:00 Completed [facility] Influenza Virus Vaccine 2012-03-02 00:00:00 Completed [facility] Influenza Virus Vaccine 2012-03-02 00:00:00 Completed [facility] Influenza Virus Vaccine 2012-03-02 00:00:00 Completed [facility] Influenza Virus Vaccine 2012-03-02 00:00:00 Completed [facility] Influenza Virus Vaccine 2012-03-02 00:00:00 Completed [facility] Influenza Virus Vaccine 2012-03-02 00:00:00 Completed [facility] Influenza Virus Vaccine 2012-03-02 00:00:00 Completed [facility] Influenza Virus Vaccine 2012-03-02 00:00:00 Completed [facility] Influenza Virus Vaccine 2012-03-02 00:00:00 Completed [facility] Influenza Virus Vaccine 2012-03-02 00:00:00 Completed [facility] Influenza Virus Vaccine 2012-03-02 00:00:00 Completed [facility] Influenza Virus Vaccine 2012-03-02 00:00:00 Completed [facility] Influenza Virus Vaccine 2012-03-02 00:00:00 Completed [facility] Influenza Virus Vaccine 2012-03-02 00:00:00 Completed [facility] Influenza Virus Vaccine 2012-03-02 00:00:00 Completed [facility] Influenza Virus Vaccine 2012-03-02 00:00:00 Completed [facility] Influenza Virus Vaccine 2012-03-02 00:00:00 Completed [facility] Influenza Virus Vaccine 2012-03-02 00:00:00 Completed [facility] [facility] Influenza Virus Vaccine 2012-03-02 00:00:00 Com[address] [facility] Influenza Virus Vaccine 2012-03-02 00:00:00 Completed [facility] Influenza Virus Vaccine 2012-03-02 00:00:00 Completed [facility] Influenza Virus Vaccine 2012-03-02 00:00:00 Completed [facility] Influenza Virus Vaccine 2012-03-02 00:00:00 Completed [facility] Influenza Virus Vaccine 2012-03-02 00:00:00 Completed [facility] Influenza Virus Vaccine 2012-03-02 00:00:00 Completed [facility] Influenza Virus Vaccine 2012-03-02 00:00:00 Completed [facility] Influenza Virus Vaccine 2012-03-02 00:00:00 Completed [facility] Influenza Virus Vaccine 2012-03-02 00:00:00 Completed [facility] Influenza Virus Vaccine 2012-03-02 00:00:00 Completed [facility] Influenza Virus Vaccine 2012-03-02 00:00:00 Completed [facility] Influenza Virus Vaccine 2012-03-02 00:00:00 Completed [facility] Influenza Virus Vaccine 2012-03-02 00:00:00 Completed [facility] Influenza Virus Vaccine 2012-03-02 00:00:00 Completed [facility] Influenza Virus Vaccine 2012-03-02 00:00:00 Completed [facility] Influenza Virus Vaccine 2012-03-02 00:00:00 Completed [facility] Influenza Virus Vaccine 2012-03-02 00:00:00 Completed [facility] Influenza Virus Vaccine 2012-03-02 00:00:00 Completed [facility] Influenza Virus Vaccine 2012-03-02 00:00:00 Completed [facility] Influenza Virus Vaccine 2012-03-02 00:00:00 Completed [facility] Influenza Virus Vaccine 2012-03-02 00:00:00 Completed [facility] Influenza Virus Vaccine 2012-03-02 00:00:00 Completed [facility] Influenza Virus Vaccine 2012-03-02 00:00:00 Completed [facility] Influenza Virus Vaccine 2012-03-02 00:00:00 Completed [facility] Influenza Virus Vaccine 2012-03-02 00:00:00 Completed [facility] Influenza Virus Vaccine 2012-03-02 00:00:00 Completed [facility] Influenza Virus Vaccine 2012-03-02 00:00:00 Completed [facility] Influenza Virus Vaccine 2012-03-02 00:00:00 Completed [facility] Influenza Virus Vaccine 2012-03-02 00:00:00 Completed [facility] Influenza Virus Vaccine 2012-03-02 00:00:00 Completed [facility] Influenza Virus Vaccine 2012-03-02 00:00:00 Completed [facility] Influenza Virus Vaccine 2012-03-02 00:00:00 Completed [facility] Influenza Virus Vaccine 2012-03-02 00:00:00 Completed [facility] Influenza Virus Vaccine 2012-03-02 00:00:00 Completed [facility] Influenza Virus Vaccine 2012-03-02 00:00:00 Completed [facility] Influenza Virus Vaccine 2012-03-02 00:00:00 Completed [facility] Influenza Virus Vaccine 2012-03-02 00:00:00 Completed [facility] Pneumococcal 7 Conjugate, PCV7 (Prevnar7) 2012-01-27 00:00:00 Completed [facility] Pneumococcal 7 Conjugate, PCV7 (Prevnar7) 2012-01-27 00:00:00 Completed [facility] Pneumococcal 7 Conjugate, PCV7 (Prevnar7) 2012-01-27 00:00:00 Completed [facility] Pneumococcal 7 Conjugate, PCV7 (Prevnar7) 2012-01-27 00:00:00 Completed [facility] Pneumococcal 7 Conjugate, PCV7 (Prevnar7) 2012-01-27 00:00:00 Completed [facility] Pneumococcal 7 Conjugate, PCV7 (Prevnar7) 2012-01-27 00:00:00 Completed [facility] Pneumococcal 7 Conjugate, PCV7 (Prevnar7) 2012-01-27 00:00:00 Completed [facility] Pneumococcal 7 Conjugate, PCV7 (Prevnar7) 2012-01-27 00:00:00 Completed [facility] Pneumococcal 7 Conjugate, PCV7 (Prevnar7) 2012-01-27 00:00:00 Completed [facility] Pneumococcal 7 Conjugate, PCV7 (Prevnar7) 2012-01-27 00:00:00 Completed [facility] Pneumococcal 7 Conjugate, PCV7 (Prevnar7) 2012-01-27 00:00:00 Completed [facility] Pneumococcal 7 Conjugate, PCV7 (Prevnar7) 2012-01-27 00:00:00 Completed [facility] Pneumococcal 7 Conjugate, PCV7 (Prevnar7) 2012-01-27 00:00:00 Completed [facility] Pneumococcal 7 Conjugate, PCV7 (Prevnar7) 2012-01-27 00:00:00 Completed [facility] Pneumococcal 7 Conjugate, PCV7 (Prevnar7) 2012-01-27 00:00:00 Completed [facility] Pneumococcal 7 Conjugate, PCV7 (Prevnar7) 2012-01-27 00:00:00 Completed [facility] Pneumococcal 7 Conjugate, PCV7 (Prevnar7) 2012-01-27 00:00:00 Completed [facility] Pneumococcal 7 Conjugate, PCV7 (Prevnar7) 2012-01-27 00:00:00 Completed [facility] Pneumococcal 7 Conjugate, PCV7 (Prevnar7) 2012-01-27 00:00:00 Completed [facility] Pneumococcal 7 Conjugate, PCV7 (Prevnar7) 2012-01-27 00:00:00 Completed [facility] Pneumococcal 7 Conjugate, PCV7 (Prevnar7) 2012-01-27 00:00:00 Completed [facility] Pneumococcal 7 Conjugate, PCV7 (Prevnar7) 2012-01-27 00:00:00 Completed [facility] Pneumococcal 7 Conjugate, PCV7 (Prevnar7) 2012-01-27 00:00:00 Completed [facility] Pneumococcal 7 Conjugate, PCV7 (Prevnar7) 2012-01-27 00:00:00 Completed [facility] Pneumococcal 7 Conjugate, PCV7 (Prevnar7) 2012-01-27 00:00:00 Completed [facility] Pneumococcal 7 Conjugate, PCV7 (Prevnar7) 2012-01-27 00:00:00 Completed [facility] Pneumococcal 7 Conjugate, PCV7 (Prevnar7) 2012-01-27 00:00:00 Completed [facility] Pneumococcal 7 Conjugate, PCV7 (Prevnar7) 2012-01-27 00:00:00 Completed [facility] Pneumococcal 7 Conjugate, PCV7 (Prevnar7) 2012-01-27 00:00:00 Completed [facility] Pneumococcal 7 Conjugate, PCV7 (Prevnar7) 2012-01-27 00:00:00 Completed [facility] Pneumococcal 7 Conjugate, PCV7 (Prevnar7) 2012-01-27 00:00:00 Completed [facility] Pneumococcal 7 Conjugate, PCV7 (Prevnar7) 2012-01-27 00:00:00 Completed [facility] Pneumococcal 7 Conjugate, PCV7 (Prevnar7) 2012-01-27 00:00:00 Completed [facility] Pneumococcal 7 Conjugate, PCV7 (Prevnar7) 2012-01-27 00:00:00 Completed [facility] Pneumococcal 7 Conjugate, PCV7 (Prevnar7) 2012-01-27 00:00:00 Completed [facility] Pneumococcal 7 Conjugate, PCV7 (Prevnar7) 2012-01-27 00:00:00 Completed [facility] Pneumococcal 7 Conjugate, PCV7 (Prevnar7) 2012-01-27 00:00:00 Completed [facility] Pneumococcal 7 Conjugate, PCV7 (Prevnar7) 2012-01-27 00:00:00 Completed [facility] Pneumococcal 7 Conjugate, PCV7 (Prevnar7) 2012-01-27 00:00:00 Completed [facility] Pneumococcal 7 Conjugate, PCV7 (Prevnar7) 2012-01-27 00:00:00 Completed [facility] Pneumococcal 7 Conjugate, PCV7 (Prevnar7) 2012-01-27 00:00:00 Completed [facility] Pneumococcal 7 Conjugate, PCV7 (Prevnar7) 2012-01-27 00:00:00 Completed [facility] Pneumococcal 7 Conjugate, PCV7 (Prevnar7) 2012-01-27 00:00:00 Completed [facility] Pneumococcal 7 Conjugate, PCV7 (Prevnar7) 2012-01-27 00:00:00 Completed [facility] Pneumococcal 7 Conjugate, PCV7 (Prevnar7) 2012-01-27 00:00:00 Completed [facility] Pneumococcal 7 Conjugate, PCV7 (Prevnar7) 2012-01-27 00:00:00 Completed [facility] Pneumococcal 7 Conjugate, PCV7 (Prevnar7) 2012-01-27 00:00:00 Completed [facility] Pneumococcal 7 Conjugate, PCV7 (Prevnar7) 2012-01-27 00:00:00 Completed [facility] Pneumococcal 7 Conjugate, PCV7 (Prevnar7) 2012-01-27 00:00:00 Completed [facility] Pneumococcal 7 Conjugate, PCV7 (Prevnar7) 2012-01-27 00:00:00 Completed [facility] Pneumococcal 7 Conjugate, PCV7 (Prevnar7) 2012-01-27 00:00:00 Completed [facility] Pneumococcal 7 Conjugate, PCV7 (Prevnar7) 2012-01-27 00:00:00 Completed [facility] Pneumococcal 7 Conjugate, PCV7 (Prevnar7) 2012-01-27 00:00:00 Completed [facility] Pneumococcal 7 Conjugate, PCV7 (Prevnar7) 2012-01-27 00:00:00 Completed [facility] Pneumococcal 7 Conjugate, PCV7 (Prevnar7) 2012-01-27 00:00:00 Completed [facility] Pneumococcal 7 Conjugate, PCV7 (Prevnar7) 2012-01-27 00:00:00 Completed [facility] Pneumococcal 7 Conjugate, PCV7 (Prevnar7) 2012-01-27 00:00:00 Completed [facility] Pneumococcal 7 Conjugate, PCV7 (Prevnar7) 2012-01-27 00:00:00 Completed [facility] Pneumococcal 7 Conjugate, PCV7 (Prevnar7) 2012-01-27 00:00:00 Completed [facility] Pneumococcal 7 Conjugate, PCV7 (Prevnar7) 2012-01-27 00:00:00 Completed [facility] Pneumococcal 7 Conjugate, PCV7 (Prevnar7) 2012-01-27 00:00:00 Completed [facility] Pneumococcal 7 Conjugate, PCV7 (Prevnar7) 2012-01-27 00:00:00 Completed [facility] Pneumococcal 7 Conjugate, PCV7 (Prevnar7) 2012-01-27 00:00:00 Completed [facility] Pneumococcal 7 Conjugate, PCV7 (Prevnar7) 2012-01-27 00:00:00 Completed [facility] Pneumococcal 7 Conjugate, PCV7 (Prevnar7) 2012-01-27 00:00:00 Completed [facility] Pneumococcal 7 Conjugate, PCV7 (Prevnar7) 2012-01-27 00:00:00 Completed [facility] Pneumococcal 7 Conjugate, PCV7 (Prevnar7) 2012-01-27 00:00:00 Completed [facility] Pneumococcal 7 Conjugate, PCV7 (Prevnar7) 2012-01-27 00:00:00 Completed [facility] Pneumococcal 7 Conjugate, PCV7 (Prevnar7) 2012-01-27 00:00:00 Completed [facility] Pneumococcal 7 Conjugate, PCV7 (Prevnar7) 2012-01-27 00:00:00 Completed [facility] Pneumococcal 7 Conjugate, PCV7 (Prevnar7) 2012-01-27 00:00:00 Completed [facility] Pneumococcal 7 Conjugate, PCV7 (Prevnar7) 2012-01-27 00:00:00 Completed [facility] Pneumococcal 7 Conjugate, PCV7 (Prevnar7) 2012-01-27 00:00:00 Completed [facility] Pneumococcal 7 Conjugate, PCV7 (Prevnar7) 2012-01-27 00:00:00 Completed [facility] Pneumococcal 7 Conjugate, PCV7 (Prevnar7) 2012-01-27 00:00:00 Completed [facility] Pneumococcal 7 Conjugate, PCV7 (Prevnar7) 2012-01-27 00:00:00 Completed [facility] Pneumococcal 7 Conjugate, PCV7 (Prevnar7) 2012-01-27 00:00:00 Completed [facility] Vital Signs Vital Name Observation Time Observation Value Comments S ource Body temperature 2024-11-19 16:00:00 [facility].44 [facility] 2024-11-19 14:00:00 125 mm[Hg] Kimberlyn serna Epic Diastolic blood pressure 2024-11-19 14:00:00 75 mm[Hg] Kimberlyn serna Epic Heart rate 2024-11-19 14:00:00 71 /min Kristy Huff Epic Respiratory rate 2024-11-19 14:00:00 20 /min Kimberlyn Zepeda Oxygen saturation in Arterial blood by Pulse oximetry 2024-11-19 14:00:00 96 /min Kimberlyn Zepeda Body weight 2024-11-19 06:00:00 85 kg Tacho Huff Epic BMI 2024-11-19 06:00:00 27.67 kg/m2 Tacho luis Bradfordann Epic Body height 2024-11-10 08:06:00 175.3 cm Tachochandra Bradfordann Epic Systolic blood pressure 2025-01-18 15:12:00 125 mm[Hg] [facility] Diastolic blood pressure 2025-01-18 15:12:00 79 mm[Hg] [facility] Heart rate 2025-01-18 15:12:00 90 /min [facility] Body temperature 2025-01-18 15:11:00 37.06 Cris [facility] Body height 2025-01-18 15:11:00 175.3 cm [facility] Body weight 2025-01-18 15:11:00 81.149 kg [facility] BMI 2025-01-18 15:11:00 26.42 kg/m2 [facility] Oxygen saturation in Arterial blood by Pulse oximetry 2025-01-18 15:11:00 99 /min [facility] Systolic blood pressure 2025-01-11 15:13:00 143 mm[Hg] [facility] Diastolic blood pressure 2025-01-11 15:13:00 79 mm[Hg] [facility] Heart rate 2025-01-11 15:13:00 80 /min [facility] Body temperature 2025-01-11 15:12:00 36.33 Cris [facility] Body height 2025-01-11 15:12:00 175.3 cm [facility] Body weight 2025-01-11 15:12:00 84.55 kg [facility] BMI 2025-01-11 15:12:00 27.53 kg/m2 [facility] Oxygen saturation in Arterial blood by Pulse oximetry 2025-01-11 15:12:00 100 /min [facility] Systolic blood pressure 2025-01-07 15:49:00 128 mm[Hg] [facility] Diastolic blood pressure 2025-01-07 15:49:00 68 mm[Hg] [facility] Heart rate 2025-01-07 15:49:00 75 /min [facility] Body temperature 2025-01-07 15:49:00 36.89 Cris [facility] Respiratory rate 2025-01-07 15:49:00 16 /min [facility] Oxygen saturation in Arterial blood by Pulse oximetry 2025-01-07 15:49:00 99 /min [facility] Body height 2024-12-31 15:36:00 175.3 cm [facility] Body weight 2024-12-31 15:36:00 83.008 kg [facility] BMI 2024-12-31 15:36:00 27.02 kg/m2 [facility] Systolic blood pressure 2024-12-07 15:15:00 195 mm[Hg] [facility] Diastolic blood pressure 2024-12-07 15:15:00 95 mm[Hg] [facility] Heart rate 2024-12-07 15:15:00 78 /min [facility] Body temperature 2024-12-07 15:13:00 36.11 Cris [facility] Body height 2024-12-07 15:13:00 175.3 cm [facility] Body weight 2024-12-07 15:13:00 96.117 kg [facility] BMI 2024-12-07 15:13:00 31.29 kg/m2 [facility] Oxygen saturation in Arterial blood by Pulse oximetry 2024-12-07 15:13:00 98 /min [facility] Systolic blood pressure 2024-12-07 14:55:00 195 mm[Hg] [facility] Diastolic blood pressure 2024-12-07 14:55:00 95 mm[Hg] [facility] Heart rate 2024-12-07 14:55:00 78 /[facility] 2024-12-07 14:54:00 36.11 Cris [facility] Body height 2024-12-07 14:54:00 175.3 cm [facility] Body weight 2024-12-07 14:54:00 96.117 kg [facility] BMI 2024-12-07 14:54:00 31.29 kg/m2 [facility] Oxygen saturation in Arterial blood by Pulse oximetry 2024-12-07 14:54:00 98 /min [facility] Body temperature 2024-11-19 16:00:00 36.44 Cris [facility] Epic Systolic blood pressure 2024-11-19 14:00:00 125 mm[Hg] [facility] Diastolic blood pressure 2024-11-19 14:00:00 75 mm[Hg] [facility] Epic Heart rate 2024-11-19 14:00:00 71 [facility] Res[facility] rate 2024-11-19 14:00:00 20 [facility]terial [facility] by Pulse oximetry 2024-11-19 14:00:00 96 /min [facility] 2024-11-19 06:00:00 85 kg [facility] luis Bradfordann [facility] BMI 2024-11-19 06:00:00 27.67 kg/m2 [facility] luis Stewart [facility] Body height 2024-11-10 08:06:00 175.3 cm [facility] luis Stewart [facility] Body temperature 2024-11-19 16:00:00 [facility]44 [facility] 2024-11-19 14:00:00 125 mm[Hg] [facility] Diastolic blood pressure 2024-11-19 14:00:00 75 mm[Hg] [facility] Epic Heart rate 2024-11-19 14:00:00 71 /min Memor [facility] Refugio Epic Respiratory rate 2024-11-19 14:00:00 20 /min [facility] Oxygen saturation in Arterial blood by Pulse oximetry 2024-11-19 14:00:00 96 /min Kimberlyn Zepeda Body weight 2024-11-19 06:00:00 85 kg Tacho Zepeda BMI 2024-11-19 06:00:00 27.67 kg/m2 Tacho Zepeda Body height 2024-11-10 08:06:00 175.3 cm Tacho Huff [facility] Systolic blood pressure 2024-10-21 18:06:00 154 mm[Hg] [facility] Diastolic blood pressure 2024-10-21 18:06:00 88 mm[Hg] [facility] Heart rate 2024-10-21 18:06:00 87 /min [facility] Body temperature 2024-10-21 18:05:00 37.22 Cris [facility] Respiratory rate 2024-10-21 18:05:00 20 /min [facility] Body height 2024-10-21 18:05:00 175.3 cm [facility] Body weight 2024-10-21 18:05:00 93.94 kg [facility] BMI 2024-10-21 18:05:00 30.58 kg/m2 [facility] Oxygen saturation in Arterial blood by Pulse oximetry 2024-10-21 18:05:00 99 /min [facility] Systolic blood pressure 2024-08-03 19:36:00 119 mm[Hg] [facility] Diastolic blood pressure 2024-08-03 19:36:00 69 mm[Hg] [facility] Heart rate 2024-08-03 19:34:00 84 /min [facility] Body temperature 2024-08-03 19:34:00 36.56 Cris [facility] Body height 2024-08-03 19:34:00 175.3 cm [facility] Body weight 2024-08-03 19:34:00 97.07 kg [facility] BMI 2024-08-03 19:34:00 31.60 kg/m2 [facility] Oxygen saturation in Arterial blood by Pulse oximetry 2024-08-03 19:34:00 99 /min [facility] Systolic blood pressure 2024-05-26 15:31:00 128 mm[Hg] [facility] Diastolic blood pressure 2024-05-26 15:31:00 78 mm[Hg] [facility] Heart rate 2024-05-26 15:31:00 76 /min [facility] Respiratory rate 2024-05-26 15:31:00 18 /min [facility] Body height 2024-05-26 15:31:00 175.3 cm [facility] Body weight 2024-05-26 15:31:00 88.905 kg [facility] BMI 2024-05-26 15:31:00 28.94 kg/m2 [facility] Oxygen saturation in Arterial blood by Pulse oximetry 2024-05-26 15:31:00 98 /min [facility] Systolic blood pressure 2024-04-29 15:40:00 169 mm[Hg] [facility] Diastolic blood pressure 2024-04-29 15:40:00 92 mm[Hg] [facility] Heart rate 2024-04-29 15:03:00 75 /min [facility] Body temperature 2024-04-29 15:03:00 36.06 Cris [facility] Respiratory rate 2024-04-29 15:03:00 20 /min [facility] Body height 2024-04-29 15:03:00 175.3 cm [facility] Body weight 2024-04-29 15:03:00 93.94 kg [facility] BMI 2024-04-29 15:03:00 30.58 kg/m2 [facility] Oxygen saturation in Arterial blood by Pulse oximetry 2024-04-29 15:03:00 99 /min [facility] Systolic blood pressure 2024-04-12 19:03:00 180 mm[Hg] [facility] Diastolic blood pressure 2024-04-12 19:03:00 91 mm[Hg] [facility] Heart rate 2024-04-12 19:03:00 83 /min [facility] Body temperature 2024-04-12 19:02:00 36.17 Cris [facility] Body height 2024-04-12 19:02:00 [facility] 2024-04-12 19:02:00 94.439 kg [facility] BMI 2024-04-12 19:02:00 30.75 kg/m2 [facility] Oxygen saturation in Arterial blood by Pulse oximetry 2024-04-12 19:02:00 99 /min [facility] [facility] Systolic blood pressure 2024-01-21 13:11:00 159 mm[Hg] [facility] Diastolic blood pressure 2024-01-21 13:11:00 90 mm[Hg] [facility] Heart rate 2024-01-21 13:10:00 84 /min [facility] Body temperature 2024-01-21 13:10:00 36.39 Cris [facility] Body height 2024-01-21 13:10:00 175.3 cm [facility] Body weight 2024-01-21 13:10:00 97.07 kg [facility] BMI 2024-01-21 13:10:00 31.60 kg/m2 [facility] Oxygen saturation in Arterial blood by Pulse oximetry 2024-01-21 13:10:00 97 /min [facility] Systolic blood pressure 2024-01-21 13:11:00 159 mm[Hg] [facility] Diastolic blood pressure 2024-01-21 13:11:00 90 mm[Hg] [facility] Heart rate 2024-01-21 13:09:00 84 /min [facility] Body temperature 2024-01-21 13:09:00 36.39 Cris [facility] Body height 2024-01-21 13:09:00 175.3 cm [facility] Body weight 2024-01-21 13:09:00 97.07 kg [facility] BMI 2024-01-21 13:09:00 31.60 kg/m2 [facility] Oxygen saturation in Arterial blood by Pulse oximetry 2024-01-21 13:09:00 97 /min [facility] Systolic blood pressure 2024-01-13 14:49:00 144 mm[Hg] [facility] Diastolic blood pressure 2024-01-13 14:49:00 85 mm[Hg] [facility] Heart rate 2024-01-13 14:49:00 83 /min [facility] Body temperature 2024-01-13 14:49:00 36.61 Cris [facility] Respiratory rate 2024-01-13 14:49:00 16 /min [facility] Body height 2024-01-13 14:49:00 175.3 cm [facility] Body weight 2024-01-13 14:49:00 100.336 kg [facility] BMI 2024-01-13 14:49:00 32.67 kg/m2 [facility] Oxygen saturation in Arterial blood by Pulse oximetry 2024-01-13 14:49:00 96 /min [facility] Systolic blood pressure 2024-01-05 18:57:00 125 mm[Hg] [facility] Diastolic blood pressure 2024-01-05 18:57:00 91 mm[Hg] [facility] Heart rate 2024-01-05 18:57:00 92 /[facility] Oxygen saturation in Arterial blood by Pulse oximetry 2024-01-05 18:57:00 100 /min [facility] Body temperature 2024-01-05 18:56:00 36.33 Cris [facility] Body height 2024-01-05 18:56:00 165.1 cm [facility] Body weight 2024-01-05 18:56:00 97.841 kg [facility] BMI 2024-01-05 18:56:00 35.89 kg/m2 [facility] Systolic blood pressure 2023-11-12 20:26:00 152 mm[Hg] [facility] Diastolic blood pressure 2023-11-12 20:26:00 84 mm[Hg] [facility] Heart rate 2023-11-12 20:26:00 73 /min [facility] Body temperature 2023-11-12 20:26:00 36.5 Cris [facility] Respiratory rate 2023-11-12 20:26:00 19 /min [facility] Body height 2023-11-12 20:26:00 [facility] 2023-11-12 20:26:00 96.798 kg [facility] BMI 2023-11-12 20:26:00 35.51 kg/m2 [facility] Oxygen saturation in Arterial blood by Pulse oximetry 2023-11-12 20:26:00 98 /min [facility] Systolic blood pressure 2023-10-16 20:10:00 137 mm[Hg] [facility] Diastolic blood pressure 2023-10-16 20:10:00 82 mm[Hg] [facility] Heart rate 2023-10-16 20:10:00 96 /min [facility] Respiratory rate 2023-10-16 20:10:00 21 /min [facility] Body height 2023-10-16 20:10:00 175.3 cm [facility] Body weight 2023-10-16 20:10:00 93.668 kg [facility] BMI 2023-10-16 20:10:00 30.49 kg/m2 [facility] Oxygen saturation in Arterial blood by Pulse oximetry 2023-10-16 20:10:00 97 /min [facility] Systolic blood pressure 2023-10-07 14:57:00 149 mm[Hg] [facility] Diastolic blood pressure 2023-10-07 14:57:00 91 mm[Hg] [facility] Heart rate 2023-10-07 14:56:00 98 /min [facility] Body temperature 2023-10-07 14:56:00 36.5 Cris [facility] Body height 2023-10-07 14:56:00 [facility] Body [facility] 2023-10-07 14:56:00 92.987 kg [facility] BMI 2023-10-07 14:56:00 34.11 kg/m2 [facility] Oxygen saturation in Arterial blood by Pulse oximetry 2023-10-07 14:56:00 98 /min [facility] Systolic blood pressure 2023-07-31 18:58:00 168 mm[Hg] [facility] Diastolic blood pressure 2023-07-31 18:58:00 92 mm[Hg] [facility] Heart rate 2023-07-31 18:58:00 74 /min [facility] Body temperature 2023-07-31 18:58:00 36.22 Cris [facility] Respiratory rate 2023-07-31 18:58:00 17 /min [facility] Body height 2023-07-31 18:58:00 175.3 cm [facility] Body weight 2023-07-31 18:58:00 83.598 kg [facility] BMI 2023-07-31 18:58:00 27.22 kg/m2 [facility] Oxygen saturation in Arterial blood by Pulse oximetry 2023-07-31 18:58:00 100 /min [facility] Systolic blood pressure 2023-07-17 13:42:00 134 mm[Hg] [facility] Diastolic blood pressure 2023-07-17 13:42:00 68 mm[Hg] [facility] Heart rate 2023-07-17 13:42:00 75 /min [facility] Body temperature 2023-07-17 13:42:00 36.44 Cris [facility] Oxygen saturation in Arterial blood by Pulse oximetry 2023-07-17 13:42:00 97 /min [facility] Respiratory rate 2023-07-17 12:57:00 22 /min [facility] Body weight 2023-07-15 14:00:00 87.59 kg [facility] BMI 2023-07-15 14:00:00 28.52 kg/m2 [facility] Body height 2023-07-03 01:49:00 175.3 cm [facility] Heart rate 2023-07-09 03:15:00 86 /min [facility] Body temperature 2023-07-09 03:15:00 35.89 Cris [facility] Oxygen saturation in Arterial blood by Pulse oximetry 2023-07-09 03:15:00 100 /min [facility] Respiratory rate 2023-07-09 02:46:00 14 /min [facility] Body weight 2023-07-08 09:00:00 88.905 kg [facility] BMI 2023-07-08 09:00:00 28.94 kg/m2 [facility] Systolic blood pressure 2023-07-08 08:17:00 148 mm[Hg] notified RN [facility] Diastolic blood pressure 2023-07-08 08:17:00 77 mm[Hg] notified RN [facility] Body height 2023-07-03 01:49:00 175.3 cm [facility] Body weight 2023-07-08 09:00:00 88.905 kg [facility] BMI 2023-07-08 09:00:00 28.94 kg/m2 [facility] Systolic blood pressure 2023-07-08 08:17:00 148 mm[Hg] notified RN [facility] Diastolic blood pressure 2023-07-08 08:17:00 77 mm[Hg] notified RN [facility] Heart rate 2023-07-08 08:17:00 67 /min [facility] Body temperature 2023-07-08 08:17:00 36.22 Cris [facility] Respiratory rate 2023-07-08 08:17:00 18 /min [facility] Oxygen saturation in Arterial blood by Pulse oximetry 2023-07-08 08:17:00 95 /min [facility] Body height 2023-07-03 01:49:00 175.3 cm [facility] Systolic blood pressure 2023-07-04 22:11:44 130 mm[Hg] [facility] Diastolic blood pressure 2023-07-04 22:11:44 76 mm[Hg] [facility] Respiratory rate 2023-07-04 22:11:44 17 /min [facility] Oxygen saturation in Arterial blood by Pulse oximetry 2023-07-04 22:11:44 97 /min [facility] Heart rate 2023-07-04 21:39:00 67 /min [facility] Body temperature 2023-07-04 16:59:00 36.56 Cris [facility] Body weight 2023-07-04 10:00:00 93.532 kg [facility] BMI 2023-07-04 10:00:00 30.45 kg/m2 [facility] Body height 2023-07-03 01:49:00 175.3 cm [facility] Systolic blood pressure 2023-05-26 15:57:00 173 mm[Hg] [facility] Diastolic blood pressure 2023-05-26 15:57:00 92 mm[Hg] [facility] Heart rate 2023-05-26 15:57:00 74 /min [facility] Oxygen saturation in Arterial blood by Pulse oximetry 2023-05-26 15:57:00 99 /min [facility] Body temperature 2023-05-26 15:56:00 36.28 Cris [facility] Body height 2023-05-26 15:56:00 177.8 cm [facility] Body weight 2023-05-26 15:56:00 94.212 kg [facility] BMI 2023-05-26 15:56:00 29.80 kg/m2 [facility] Body weight 2023-05-02 16:22:00 91.627 kg [facility] BMI 2023-05-02 16:22:00 28.98 kg/m2 [facility] Body weight 2023-03-28 16:46:00 91.627 kg [facility] BMI 2023-03-28 16:46:00 28.98 kg/m2 [facility] Body weight 2023-02-24 15:56:00 91.627 kg [facility] BMI 2023-02-24 15:56:00 28.98 kg/m2 [facility] Systolic blood pressure 2023-02-19 15:04:00 141 mm[Hg] [facility] Diastolic blood pressure 2023-02-19 15:04:00 71 mm[Hg] [facility] Heart rate 2023-02-19 15:04:00 70 /min [facility] Body temperature 2023-02-19 15:03:00 36.28 Cris [facility] Respiratory rate 2023-02-19 15:03:00 18 /min [facility] Body height 2023-02-19 15:03:00 177.8 [facility] 2023-02-19 15:03:00 91.989 kg [facility] BMI 2023-02-19 15:03:00 29.10 kg/m2 [facility] Oxygen saturation in Arterial blood by Pulse oximetry 2023-02-19 15:03:00 95 /min [facility] Body weight 2023-01-27 19:27:00 92.534 kg [facility] BMI 2023-01-27 19:27:00 30.13 kg/m2 [facility] Systolic blood pressure 2023-01-13 16:09:00 144 mm[Hg] [facility] Diastolic blood pressure 2023-01-13 16:09:00 81 mm[Hg] [facility] Heart rate 2023-01-13 16:09:00 78 /[facility] Body temperature 2023-01-13 16:09:00 35.83 Cris [facility] Respiratory rate 2023-01-13 16:09:00 16 /min [facility] Body height 2023-01-13 16:09:00 175.3 cm [facility] Body weight 2023-01-13 16:09:00 92.579 kg [facility] BMI 2023-01-13 16:09:00 30.14 kg/m2 [facility] Oxygen saturation in Arterial blood by Pulse oximetry 2023-01-13 16:09:00 96 /min [facility] Body weight 2023-01-06 15:28:00 92.08 kg [facility] BMI 2023-01-06 15:28:00 29.98 kg/m2 [facility] Systolic blood pressure 2022-11-25 18:12:00 155 mm[Hg] [facility] Diastolic blood pressure 2022-11-25 18:12:00 77 mm[Hg] [facility] Heart rate 2022-11-25 18:11:00 79 /min [facility] Body temperature 2022-11-25 18:11:00 36.39 Cris [facility] Body height 2022-11-25 18:11:00 175.3 cm [facility] Body weight 2022-11-25 18:11:00 92.08 kg [facility] BMI 2022-11-25 18:11:00 29.98 kg/m2 [facility] Oxygen saturation in Arterial blood by Pulse oximetry 2022-11-25 18:11:00 95 /min [facility] Systolic blood pressure 2022-10-21 14:58:00 132 mm[Hg] [facility] Diastolic blood pressure 2022-10-21 14:58:00 80 mm[Hg] [facility] Heart rate 2022-10-21 14:54:00 83 /min [facility] Body temperature 2022-10-21 14:54:00 36.44 Cris [facility] Body height 2022-10-21 14:54:00 175.3 cm [facility] Body weight 2022-10-21 14:54:00 88.769 kg [facility] BMI 2022-10-21 14:54:00 28.90 kg/m2 [facility] Oxygen saturation in Arterial blood by Pulse oximetry 2022-10-21 14:54:00 98 /min [facility] Systolic blood pressure 2022-10-15 19:08:00 137 mm[Hg] [facility] Diastolic blood pressure 2022-10-15 19:08:00 78 mm[Hg] [facility] Heart rate 2022-10-15 19:08:00 70 /min [facility] Body temperature 2022-10-15 19:08:00 36.89 Cris [facility] Body height 2022-10-15 19:08:00 175.3 cm [facility] Body weight 2022-10-15 19:08:00 90.629 kg [facility] BMI 2022-10-15 19:08:00 29.51 kg/m2 [facility] Oxygen saturation in Arterial blood by Pulse oximetry 2022-10-15 19:08:00 97 /min [facility] Systolic blood pressure 2022-08-26 19:04:00 157 mm[Hg] [facility] Diastolic blood pressure 2022-08-26 19:04:00 88 mm[Hg] [facility] Heart rate 2022-08-26 19:04:00 75 /min [facility] Oxygen saturation in Arterial blood by Pulse oximetry 2022-08-26 19:04:00 100 /min [facility] Body temperature 2022-08-26 19:03:00 35.83 Cris [facility] Body height 2022-08-26 19:03:00 175.3 cm [facility] Body weight 2022-08-26 19:03:00 93.895 kg [facility] BMI 2022-08-26 19:03:00 30.57 kg/m2 [facility] Systolic blood pressure 2022-07-30 20:42:00 140 mm[Hg] [facility] Diastolic blood pressure 2022-07-30 20:42:00 74 mm[Hg] [facility] Heart rate 2022-07-30 20:41:00 82 /min [facility] Body temperature 2022-07-30 20:41:00 36.67 Cris [facility] Respiratory rate 2022-07-30 20:41:00 18 /min [facility] Body height 2022-07-30 20:41:00 175.3 cm [facility] Body weight 2022-07-30 20:41:00 94.756 kg [facility] BMI 2022-07-30 20:41:00 30.85 kg/m2 [facility] Oxygen saturation in Arterial blood by Pulse oximetry 2022-07-30 20:41:00 97 /min [facility] Systolic blood pressure 2022-07-17 19:32:00 148 mm[Hg] [facility] Diastolic blood pressure 2022-07-17 19:32:00 82 mm[Hg] [facility] Heart rate 2022-07-17 19:32:00 80 /min [facility] Oxygen saturation in Arterial blood by Pulse oximetry 2022-07-17 19:32:00 99 /min [facility] Body temperature 2022-07-17 19:31:00 35.94 Cris [facility] Body height 2022-07-17 19:31:00 177.8 cm [facility] weight 2022-07-17 19:31:00 95.255 kg [facility] BMI 2022-07-17 19:31:00 30.13 kg/m2 [facility] Body height 2022-05-16 14:43:00 177.8 cm [facility] Systolic blood pressure 2022-05-07 16:21:00 136 mm[Hg] [facility] Diastolic blood pressure 2022-05-07 16:21:00 72 mm[Hg] [facility] Heart rate 2022-05-07 15:42:00 85 /min [facility] Body temperature 2022-05-07 15:42:00 35.94 [address] [facility] Respiratory rate 2022-05-07 15:42:00 18 /min [facility] Body height 2022-05-07 15:42:00 177.8 cm [facility] Body weight 2022-05-07 15:42:00 93.895 kg [facility] BMI 2022-05-07 15:42:00 29.70 kg/m2 [facility] Oxygen saturation in Arterial blood by Pulse oximetry 2022-05-07 15:42:00 97 /min [facility] Systolic blood pressure 2022-03-12 21:48:00 145 mm[Hg] [facility] Diastolic blood pressure 2022-03-12 21:48:00 71 mm[Hg] [facility] Heart rate 2022-03-12 21:47:00 71 /min [facility] Body temperature 2022-03-12 21:47:00 36.5 Cris [facility] Body weight 2022-03-12 21:47:00 94.575 kg [facility] BMI 2022-03-12 21:47:00 30.79 kg/m2 [facility] Systolic blood pressure 2022-02-04 16:30:00 147 mm[Hg] [facility] Diastolic blood pressure 2022-02-04 16:30:00 83 mm[Hg] [facility] Heart rate 2022-02-04 16:29:00 82 /min [facility] Respiratory rate 2022-02-04 16:29:00 18 /min [facility] Body height 2022-02-04 16:29:00 175.3 cm [facility] Body weight 2022-02-04 16:29:00 90.266 kg [facility] BMI 2022-02-04 16:29:00 29.39 kg/m2 [facility] Oxygen saturation in Arterial blood by Pulse oximetry 2022-02-04 16:29:00 97 /min [facility] Systolic blood pressure 2022-01-28 15:28:00 145 mm[Hg] [facility] Diastolic blood pressure 2022-01-28 15:28:00 88 mm[Hg] [facility] Heart rate 2022-01-28 15:28:00 74 /min [facility] Oxygen saturation in Arterial blood by Pulse oximetry 2022-01-28 15:28:00 99 /min [facility] Body temperature 2022-01-28 15:27:00 36.67 Cris [facility] Respiratory rate 2022-01-28 15:27:00 16 /min [facility] Body height 2022-01-28 15:27:00 175.3 cm [facility] Body weight 2022-01-28 15:27:00 93.94 kg [facility] BMI 2022-01-28 15:27:00 30.58 kg/m2 [facility] Systolic blood pressure 2021-12-26 19:54:00 133 mm[Hg] [facility] Diastolic blood pressure 2021-12-26 19:54:00 67 mm[Hg] [facility] Body height 2021-12-26 19:52:00 175.3 cm [facility] Body weight 2021-12-26 19:52:00 91.853 kg [facility] BMI 2021-12-26 19:52:00 29.90 kg/m2 [facility] Oxygen saturation in Arterial blood by Pulse oximetry 2021-12-26 19:52:00 94 /min [facility] Heart rate 2021-12-26 19:52:00 94 /min [facility] Body temperature 2021-12-26 19:52:00 36.22 Cris [facility] Respiratory rate 2021-12-26 19:52:00 18 /min [facility] Systolic blood pressure 2025-01-07 15:49:00 128 mm[Hg] [facility] Diastolic blood pressure 2025-01-07 15:49:00 68 mm[Hg] [facility] Heart rate 2025-01-07 15:49:00 75 /min [facility] Body temperature 2025-01-07 15:49:00 36.89 Cris [facility] Respiratory rate 2025-01-07 15:49:00 16 /min [facility] Oxygen saturation in Arterial blood by Pulse oximetry 2025-01-07 15:49:00 99 /min [facility] Systolic blood pressure 2025-01-02 15:43:00 134 mm[Hg] [facility] Diastolic blood pressure 2025-01-02 15:43:00 76 mm[Hg] [facility] Heart rate 2025-01-02 15:43:00 84 /min [facility] Body temperature 2025-01-02 15:43:00 36.33 Cris [facility] Respiratory rate 2025-01-02 15:43:00 16 /min [facility] Oxygen saturation in Arterial blood by Pulse oximetry 2025-01-02 15:43:00 99 /min [facility] Body height 2024-12-31 15:36:00 175.3 cm [facility] Body weight 2024-12-31 15:36:00 83.008 kg [facility] BMI 2024-12-31 15:36:00 27.02 kg/m2 [facility] Body temperature 2024-12-27 16:41:00 36.11 Cris [facility] Systolic blood pressure 2024-12-27 16:40:00 148 mm[Hg] [facility] Diastolic blood pressure 2024-12-27 16:40:00 80 mm[Hg] [facility] Heart rate 2024-12-27 16:40:00 85 /min [facility] Respiratory rate 2024-12-27 16:40:00 20 /min [facility] Oxygen saturation in Arterial blood by Pulse oximetry 2024-12-27 16:40:00 98 /min [facility] Body weight 2024-12-27 09:00:00 84.823 kg [facility] BMI 2024-12-27 09:00:00 27.62 kg/m2 [facility] Systolic blood pressure 2024-12-26 13:00:00 122 mm[Hg] [facility] Diastolic blood pressure 2024-12-26 13:00:00 63 mm[Hg] [facility] Heart rate 2024-12-26 13:00:00 91 /min [facility] Body temperature 2024-12-26 13:00:00 37.61 Cris [facility] Respiratory rate 2024-12-26 13:00:00 18 /min [facility] Oxygen saturation in Arterial blood by Pulse oximetry 2024-12-26 13:00:00 99 /min [facility] Body weight 2024-12-26 09:00:00 84.823 kg [facility] BMI 2024-12-26 09:00:00 27.62 kg/m2 [facility] Body height 2024-12-24 17:39:00 175.3 cm [facility] Procedures Procedure Date / Time Performed Performing Clinician Source [facility]OSPHORUS 2025-01-07 10:08:00 [facility]25-01-07 10:08:00 [facility]OL[facility] PANEL (NA, K, CL, CO2, GLUCOSE, BUN, CREATININE, CA) 2025-01-07 10:08:00 Pippa Haley [facility] TACROLIMUS, LEVEL 2025-01-07 10:08:00 Joyce Corley [facility] CBC WITH DIFF 2025-01-07 10:08:00 [facility] TA[facility], LEVEL 2025-01-07 10:08:00 Joyce Corley [facility] BASIC METABOLIC PANEL (NA, K, CL, CO2, GLUCOSE, BUN, CREATININE, CA) 2025-01-07 10:08:00 Pippa Haley [facility] CBC WITH DIFF 2025-01-07 10:08:00 [facility] MAG[facility]UM 2025-01-07 10:08:00 [facility]OS[facility] 2025-01-07 10:08:00 [facility] 2025-01-06 11:01:00 [facility] 2025-01-06 11:01:00 [facility] BASIC METABOLIC PANEL (NA, K, CL, CO2, GLUCOSE, BUN, CREATININE, CA) 2025-01-06 11:01:00 Pippa Haley [facility] TACROLIMUS, LEVEL 2025-01-06 11:01:00 Jacques Tellez [facility] CBC WITH DIFF 2025-01-06 11:01:00 [facility], LEVEL 2025-01-06 11:01:00 Jacques Tellez [facility] BASIC METABOLIC PANEL (NA, K, CL, CO2, GLUCOSE, BUN, CREATININE, CA) 2025-01-06 11:01:00 Pippa Haley [facility] CBC WITH DIFF 2025-01-06 11:01:00 [facility] 2025-01-06 11:01:00 [facility] 2025-01-06 11:01:00 [facility] 2025-01-05 10:48:00 Jacques Tellez [facility] MAGNESIUM 2025-01-05 10:48:00 Jacques Tellez [facility] IONIZED CALCIUM 2025-01-05 10:48:00 Jacques Tellez [facility] BASIC METABOLIC PANEL (NA, K, CL, CO2, GLUCOSE, BUN, CREATININE, CA) 2025-01-05 10:48:00 Jacques Tellez [facility] TACROLIMUS, LEVEL 2025-01-05 10:48:00 Jacques Telelz [facility] CBC WITH DIFF 2025-01-05 10:48:00 Jacques Tellez [facility] PHOSPHORUS 2025-01-05 10:48:00 Jacques Tellez [facility] MAGNESIUM 2025-01-05 10:48:00 Jacques Tellez [facility] BASIC METABOLIC PANEL (NA, K, CL, CO2, GLUCOSE, BUN, CREATININE, CA) 2025-01-05 10:48:00 Jacques Tellez [facility] CBC WITH DIFF 2025-01-05 10:48:00 Jacques Tellez [facility] IONIZED CALCIUM 2025-01-05 10:48:00 Jacques Tellez [facility] TACROLIMUS, LEVEL 2025-01-05 10:48:00 Jacques Tellez [facility] TACROLIMUS, LEVEL 2025-01-04 13:23:00 Joyce Corley [facility] TACROLIMUS, LEVEL 2025-01-04 13:23:00 Joyce Corley [facility] PHOSPHORUS 2025-01-04 11:02:00 Jacques Tellez [facility] MAGNESIUM 2025-01-04 11:02:00 Jacques Tellez [facility] IONIZED CALCIUM 2025-01-04 11:02:00 Jacques Tellez [facility] BASIC METABOLIC PANEL (NA, K, CL, CO2, GLUCOSE, BUN, CREATININE, CA) 2025-01-04 11:02:00 Jacques Tellez [facility] PHOSPHORUS 2025-01-04 11:02:00 Jacques Tellez [facility] MAGNESIUM 2025-01-04 11:02:00 Jacques Tellez [facility] BASIC METABOLIC PANEL (NA, K, CL, CO2, GLUCOSE, BUN, CREATININE, CA) 2025-01-04 11:02:00 Jacques Tellez [facility] IONIZED CALCIUM 2025-01-04 11:02:00 Jacques Tellez [facility] CBC WITH DIFF 2025-01-04 11:01:00 Jacques Tellez [facility] CBC WITH DIFF 2025-01-04 11:01:00 Jacques Tellez [facility] PHOSPHORUS 2025-01-03 10:19:00 Jacques Tellez [facility] MAGNESIUM 2025-01-03 10:19:00 Jacques Tellez Sha[place]en [facility] IONIZED CALCIUM 2025-01-03 10:19:00 Jacques Tellez [facility] BASIC METABOLIC PANEL (NA, K, CL, CO2, GLUCOSE, BUN, CREATININE, CA) 2025-01-03 10:19:00 Jacques Tellez [facility] TACROLIMUS, LEVEL 2025-01-03 10:19:00 Jacques Tellez [facility] CBC WITH DIFF 2025-01-03 10:19:00 Jacques Tellez [facility] PHOSPHORUS 2025-01-03 10:19:00 Jacques Tellez [facility] MAGNESIUM 2025-01-03 10:19:00 Jacques Tellez [facility] BASIC METABOLIC PANEL (NA, K, CL, CO2, GLUCOSE, BUN, CREATININE, CA) 2025-01-03 10:19:00 Jacques Tellez [facility] CBC WITH DIFF 2025-01-03 10:19:00 Jacques Tellez [facility] IONIZED CALCIUM 2025-01-03 10:19:00 Jacques Tellez [facility] TACROLIMUS, LEVEL 2025-01-03 10:19:00 Jacques Tellez [facility] PHOSPHORUS 2025-01-02 10:19:00 Jacques Tellez [facility] MAGNESIUM 2025-01-02 10:19:00 Jacques Tellez [facility] BASIC METABOLIC PANEL (NA, K, CL, CO2, GLUCOSE, BUN, CREATININE, CA) 2025-01-02 10:19:00 Jacques Tellez [facility] CBC WITH DIFF 2025-01-02 10:19:00 Jacques Tellez [facility] IONIZED CALCIUM 2025-01-02 10:19:00 Jacques Tellez [facility] TACROLIMUS, LEVEL 2025-01-02 10:19:00 Jacques Tellez [facility] PHOSPHORUS 2025-01-02 10:19:00 Jacques Tellez [facility] MAGNESIUM 2025-01-02 10:19:00 Jacuqes Tellez [facility] IONIZED CALCIUM 2025-01-02 10:19:00 Jacques Tellez [facility] BASIC METABOLIC PANEL (NA, K, CL, CO2, GLUCOSE, BUN, CREATININE, CA) 2025-01-02 10:19:00 Jacques Tellez [facility] TACROLIMUS, LEVEL 2025-01-02 10:19:00 Jacques Tellez [facility] CBC WITH DIFF 2025-01-02 10:19:00 Jacques Tellez [facility] PHOSPHORUS 2025-01-01 10:33:00 Jacques Tellez [facility] MAGNESIUM 2025-01-01 10:33:00 Jacques Tellez [facility] BASIC METABOLIC PANEL (NA, K, CL, CO2, GLUCOSE, BUN, CREATININE, CA) 2025-01-01 10:33:00 Jacques Tellez [facility] CBC WITH DIFF 2025-01-01 10:33:00 Jacques Tellez [facility] IONIZED CALCIUM 2025-01-01 10:33:00 Jacques Tellez [facility] TACROLIMUS, LEVEL 2025-01-01 10:33:00 Jacques Tellez [facility] PHOSPHORUS 2025-01-01 10:33:00 Jacques Tellez [facility] MAGNESIUM 2025-01-01 10:33:00 Jacques Tellez [facility] IONIZED CALCIUM 2025-01-01 10:33:00 Jacques Tellez [facility] BASIC METABOLIC PANEL (NA, K, CL, CO2, GLUCOSE, BUN, CREATININE, CA) 2025-01-01 10:33:00 Jacques Tellez [facility] TACROLIMUS, LEVEL 2025-01-01 10:33:00 Jacques Tellez [facility] CBC WITH DIFF 2025-01-01 10:33:00 Jacques Tellez [facility] CYTO ORGAN ASPIRATION-FNA 2024-12-31 17:48:00 Vamsi Lopez [facility] CYTO ORGAN ASPIRATION-FNA 2024-12-31 17:48:00 Vamsi Lopez [facility] IR BIOPSY ABDOMEN RETROPERITONEAL PERCUTANEOUS WITH ULTRASOUND 2024-12-31 17:45:00 Nba Tee [facility] IR BIOPSY ABDOMEN RETROPERITONEAL PERCUTANEOUS WITH ULTRASOUND 2024-12-31 17:45:00 Nba Tee [facility] MAGNESIUM 2024-12-31 10:56:00 Richie Smith [facility] PHOSPHORUS 2024-12-31 10:56:00 Luis [facility] BASIC METABOLIC PANEL (NA, K, CL, CO2, GLUCOSE, BUN, CREATININE, CA) 2024-12-31 10:56:00 Richie Smith [facility] CBC WITH DIFF 2024-12-31 10:56:00 Richie Smith [facility] PROTHROMBIN TIME / INR 2024-12-31 10:56:00 Kennedi Smith [facility] ACTIVATED PARTIAL THRMPLAS ROSEMARY 2024-12-31 10:56:00 Richie Smith [facility] TACROLIMUS, LEVEL 2024-12-31 10:56:00 Pippa Haley [facility] PHOSPHORUS 2024-12-31 10:56:00 Richie Smith [facility] MAGNESIUM 2024-12-31 10:56:00 Richie Smith [facility] BASIC METABOLIC PANEL (NA, K, CL, CO2, GLUCOSE, BUN, CREATININE, CA) 2024-12-31 10:56:00 Richie Smith [facility] TACROLIMUS, LEVEL 2024-12-31 10:56:00 Pippa Haley [facility] CBC WITH DIFF 2024-12-31 10:56:00 Richie Smith [facility] PROTHROMBIN TIME / INR 2024-12-31 10:56:00 Kennedi Smith [facility] ACTIVATED PARTIAL THRMPLAS ROSEMARY 2024-12-31 10:56:00 Richie Smith [facility] MAGNESIUM 2024-12-30 10:33:00 Richie Smith [facility] PHOSPHORUS 2024-12-30 10:33:00 Luis [facility] BASIC METABOLIC PANEL (NA, K, CL, CO2, GLUCOSE, BUN, CREATININE, CA) 2024-12-30 10:33:00 Luis [facility] CBC WITH DIFF 2024-12-30 10:33:00 [facility] 2024-12-30 10:33:00 Kennedi Smith [facility] ACTIVATED PARTIAL THRMPLAS ROSEMARY 2024-12-30 10:33:00 Luis [facility] TACROLIMUS, LEVEL 2024-12-30 10:33:00 Pippa Haley [facility] PHOSPHORUS 2024-12-30 10:33:00 Richie Smith [facility] MAGNESIUM 2024-12-30 10:33:00 Luis [facility] BASIC METABOLIC PANEL (NA, K, CL, CO2, GLUCOSE, BUN, CREATININE, CA) 2024-12-30 10:33:00 Richie Smith [facility] TACROLIMUS, LEVEL 2024-12-30 10:33:00 Pippa Haley [facility] CBC WITH DIFF 2024-12-30 10:33:00 Richie Smith [facility] PROTHROMBIN TIME / INR 2024-12-30 10:33:00 Kennedi Smith [facility] ACTIVATED PARTIAL THRMPLAS ROSEMARY 2024-12-30 10:33:00 Luis Richie [facility] MR ABDOMEN W WO CONTRAST 2024-12-30 09:55:07 Jacques Shearer [facility] MR ABDOMEN W WO CONTRAST 2024-12-30 09:55:07 Jacques Shearer [facility] IRON PANEL 2024-12-29 20:59:00 [facility] 2024-12-29 20:59:00 [facility] HB ECG ROUTINE & RHYTHM STRIP 2024-12-29 15:50:43 Pippa Haley [facility] HB ECG ROUTINE & RHYTHM STRIP 2024-12-29 15:50:43 Pippa Haley [facility] TACROLIMUS, LEVEL 2024-12-29 11:36:00 Jacques Tellez [facility] TACROLIMUS, LEVEL 2024-12-29 11:36:00 Jacques Tellez [facility] MAGNESIUM 2024-12-29 10:56:[address] [facility] 2024-12-29 10:56:[address] [facility] BASIC METABOLIC PANEL (NA, K, CL, CO2, GLUCOSE, BUN, CREATININE, CA) 2024-12-29 10:56:00 [facility] 2024-12-29 10:56:00 Richie Smith [facility] PROTHROMBIN TIME / INR 2024-12-29 10:56:00 Kennedi Smith [facility] ACTIVATED PARTIAL THRMPLAS ROSEMARY 2024-12-29 10:56:00 Richie Smith [facility] FERRITIN SERUM 2024-12-29 10:56:00 Pippa Haley [facility] PHOSPHORUS 2024-12-29 10:56:00 Richie Smith [facility] MAGNESIUM 2024-12-29 10:56:00 Luis [facility] FERRITIN SERUM 2024-12-29 10:56:00 Pippa Haley [facility] BASIC METABOLIC PANEL (NA, K, CL, CO2, GLUCOSE, BUN, CREATININE, CA) 2024-12-29 10:56:00 Richie Smith [facility] CBC WITH DIFF 2024-12-29 10:56:00 Richie Smith [facility] PROTHROMBIN TIME / INR 2024-12-29 10:56:00 Kennedi Smith [facility] ACTIVATED PARTIAL THRMPLAS ROSEMARY 2024-12-29 10:56:00 Richie Smith [facility] TACROLIMUS, LEVEL 2024-12-28 13:01:00 Richie Smith [facility] PROTHROMBIN TIME / INR 2024-12-28 13:01:00 Kennedi Smith [facility] ACTIVATED PARTIAL THRMPLAS ROSEMARY 2024-12-28 13:01:00 Richie Smith [facility] TACROLIMUS, LEVEL 2024-12-28 13:01:00 Richie Smith [facility] PROTHROMBIN TIME / INR 2024-12-28 13:01:00 Kennedi Smith [facility] ACTIVATED PARTIAL THRMPLAS ROSEMARY 2024-12-28 13:01:00 Richie Smith [facility] MAGNESIUM 2024-12-28 10:38:00 Richie Smith [facility] PHOSPHORUS 2024-12-28 10:38:00 Luis [facility] BASIC METABOLIC PANEL (NA, K, CL, CO2, GLUCOSE, BUN, CREATININE, CA) 2024-12-28 10:38:00 [facility] 2024-12-28 10:38:00 Richie Smith [facility] PHOSPHORUS 2024-12-28 10:38:00 Richie Smith [facility] MAGNESIUM 2024-12-28 10:38:[address] [facility] BASIC METABOLIC PANEL (NA, K, CL, CO2, GLUCOSE, BUN, CREATININE, CA) 2024-12-28 10:38:00 Richie Smith [facility] CBC WITH DIFF 2024-12-28 10:38:00 [facility] & RHYTHM STRIP 2024-12-27 17:41:04 Jacques Tellez [facility] HB ECG ROUTINE & RHYTHM STRIP 2024-12-27 17:41:04 Jacques Tellez [facility] TACROLIMUS, LEVEL 2024-12-27 09:12:00 Richie Smith [facility] MAGNESIUM 2024-12-27 09:12:[address] [facility] 2024-12-27 09:12:[address] [facility] BASIC METABOLIC PANEL (NA, K, CL, CO2, GLUCOSE, BUN, CREATININE, CA) 2024-12-27 09:12:00 Richie Smith [facility] CBC WITH DIFF 2024-12-27 09:12:00 Richie Smith [facility] PROTHROMBIN TIME / INR 2024-12-27 09:12:00 Kennedi Smith [facility] ACTIVATED PARTIAL THRMPLAS ROSEMARY 2024-12-27 09:12:00 Richie Smith [facility] LIPID PANEL (50399)(TOTAL CHOLESTEROL, TRIGLYCERIDES, HDL) 2024-12-27 09:12:00 Jacques Tellez [facility] PHOSPHORUS 2024-12-27 09:12:00 Richie Smith [facility] MAGNESIUM 2024-12-27 09:12:00 Luis [facility] BASIC METABOLIC PANEL (NA, K, CL, CO2, GLUCOSE, BUN, CREATININE, CA) 2024-12-27 09:12:00 Richie Smith [facility] LIPID PANEL (15900)(TOTAL CHOLESTEROL, TRIGLYCERIDES, HDL) 2024-12-27 09:12:00 Jacques Tellez [facility] TACROLIMUS, LEVEL 2024-12-27 09:12:00 Richie Smith [facility] CBC WITH DIFF 2024-12-27 09:12:00 Richie Smith [facility] PROTHROMBIN TIME / INR 2024-12-27 09:12:00 Kennedi Smith [facility] ACTIVATED PARTIAL THRMPLAS ROSEMARY 2024-12-27 09:12:00 [facility] 2024-12-27 04:51:01 Chandan [facility] XR BONE SURVEY LTD 2024-12-27 04:51:01 Katie Hawley [facility] TACROLIMUS, LEVEL 2024-12-26 09:19:00 Richie Smith [facility] MAGNESIUM 2024-12-26 09:19:00 Richie Smith [facility] PHOSPHORUS 2024-12-26 09:19:00 Richie Smith [facility] BASIC METABOLIC PANEL (NA, K, CL, CO2, GLUCOSE, BUN, CREATININE, CA) 2024-12-26 09:19:00 Richie Smith [facility] CBC WITH DIFF 2024-12-26 09:19:00 Richie Smith [facility] PROTHROMBIN TIME / INR 2024-12-26 09:19:00 Kennedi Smith [facility] ACTIVATED PARTIAL THRMPLAS ROSEMARY 2024-12-26 09:19:00 Richie Smith [facility] PHOSPHORUS 2024-12-26 09:19:00 Richie Smith [facility] MAGNESIUM 2024-12-26 09:19:00 Richie Smith [facility] BASIC METABOLIC PANEL (NA, K, CL, CO2, GLUCOSE, BUN, CREATININE, CA) 2024-12-26 09:19:00 Richie Smith [facility] TACROLIMUS, LEVEL 2024-12-26 09:19:00 Richie Smith [facility] CBC WITH DIFF 2024-12-26 09:19:00 Richie Smith [facility] PROTHROMBIN TIME / INR 2024-12-26 09:19:00 Kennedi Smith [facility] ACTIVATED PARTIAL THRMPLAS ROSEMARY 2024-12-26 09:19:00 [facility] NEPHROSTOMY CATHETER 2024-12-25 19:08:00 Chandan [facility] IR EXCHANGE NEPHROSTOMY CATHETER 2024-12-25 19:08:00 Chandan [facility] XR KUB 2024-12-25 16:50:00 Socorro Cabrales Un [facility] XR KUB 2024-12-25 16:50:00 Socorro Cabrales [facility] HB INDIRECT ANTIGLOBULIN TEST 2024-12-25 16:14:00 Socorro Cabrales [facility] HB INDIRECT ANTIGLOBULIN TEST 2024-12-25 16:14:00 Socorro Cabrales [facility] CBC WITHOUT DIFF 2024-12-25 12:56:00 Socorro Cabrales [facility] CBC WITHOUT DIFF 2024-12-25 12:56:00 Socorro Cabrales [facility] BASIC METABOLIC PANEL (NA, K, CL, CO2, GLUCOSE, BUN, CREATININE, CA) 2024-12-25 06:02:00 Socorro Cabrales [facility] MAGNESIUM 2024-12-25 06:02:00 Socorro Cabrales Un [facility] TACROLIMUS, LEVEL 2024-12-25 06:02:00 Richie Smith [facility] PHOSPHORUS 2024-12-25 06:02:00 Richie Smith [facility] CBC WITH DIFF 2024-12-25 06:02:[address] [facility] PHOSPHORUS 2024-12-25 06:02:00 Richie Smith [facility] MAGNESIUM 2024-12-25 06:02:00 Socorro Cabrales [facility] BASIC METABOLIC PANEL (NA, K, CL, CO2, GLUCOSE, BUN, CREATININE, CA) 2024-12-25 06:02:00 Socorro Cabrales [facility] TACROLIMUS, LEVEL 2024-12-25 06:02:00 Richie Smith [facility] CBC WITH DIFF 2024-12-25 06:02:[address] [facility] BLOOD CULTURE SCREEN 2024-12-24 23:25:00 [facility] 2024-12-24 23:25:00 Luis [facility] BLOOD CULTURE SCREEN 2024-12-24 23:11:00 Richie Smith [facility] ACTIVATED PARTIAL THRMPLAS ROSEMARY 2024-12-24 23:11:00 Socorro Cabrales [facility] BLOOD CULTURE SCREEN 2024-12-24 23:11:00 Luis [facility] ACTIVATED PARTIAL THRMPLAS ROSEMARY 2024-12-24 23:11:00 Socorro Cabrales [facility] IR PLACEMENT NEPHRO CATHETER PERCUTANEOUS INCLUDES DIAGNOSTIC NEPHROGRAM 2024-12-24 19:40:00 Vamsi Lopez [facility] IR PLACEMENT NEPHRO CATHETER PERCUTANEOUS INCLUDES DIAGNOSTIC NEPHROGRAM 2024-12-24 19:40:00 Vamsi Lopez [facility] URINE CULTURE 2024-12-24 19:13:00 [facility]24-12-24 19:13:00 Vamsi Lopez [facility] CBC WITH DIFF 2024-12-24 07:45:00 Socorro [facility]es [facility] BASIC METABOLIC PANEL (NA, K, CL, CO2, GLUCOSE, BUN, CREATININE, CA) 2024-12-24 07:45:00 Socorro Cabrales [facility] MAGNESIUM 2024-12-24 07:45:00 Socorro [facility]rales [facility] TACROLIMUS, LEVEL 2024-12-24 07:45:00 Richie Smith [facility] ACTIVATED PARTIAL THRMPLAS ROSEMARY 2024-12-24 07:45:00 Socorro Cabrales [facility] MAGNESIUM 2024-12-24 07:45:00 Socorro Cabrales Un [facility] BASIC METABOLIC PANEL (NA, K, CL, CO2, GLUCOSE, BUN, CREATININE, CA) 2024-12-24 07:45:00 Socorro Cabrales [facility] TACROLIMUS, LEVEL 2024-12-24 07:45:00 Richie Smith [facility] CBC WITH DIFF 2024-12-24 07:45:00 Socorro Cabrales [facility] ACTIVATED PARTIAL THRMPLAS ROSEMARY 2024-12-24 07:45:00 Socorro Cabrales [facility] ACTIVATED PARTIAL THRMPLAS ROSEMARY 2024-12-23 22:39:00 Socorro Cabrales [facility] ACTIVATED PARTIAL THRMPLAS ROSEMARY 2024-12-23 22:39:00 Socorro Cabrales [facility] URINE CULTURE 2024-12-23 19:55:00 Socorro [facility]rales [facility] EXTRA TUBE URINE 2024-12-23 19:55:00 Bran [facility] CULTURE 2024-12-23 19:55:00 [facility]ra [facility] URINE 2024-12-23 19:55:00 Bran Elise [facility] ACTIVATED PARTIAL THRMPLAS ROSEMARY 2024-12-23 15:21:00 Samra Socorro Urena [facility] ACTIVATED PARTIAL THRMPLAS ROSEMARY 2024-12-23 15:21:00 Socorro Cabrales [facility] CT ABDOMEN PELVIS W CONTRAST 2024-12-23 13:44:24 Socorro Cabrales [facility] CT ABDOMEN PELVIS W CONTRAST 2024-12-23 13:44:24 Socorro Cabrales [facility] TRANSPLANTED KIDNEY 2024-12-23 13:03:38 Shanika Layne i [facility] US TRANSPLANTED KIDNEY 2024-12-23 13:03:38 Nneka Layne ilaine [facility] TACROLIMUS, LEVEL 2024-12-23 09:34:00 Johan Martínez [facility] TACROLIMUS, LEVEL 2024-12-23 09:34:00 Johan Martínez [facility] EXTRA TUBE SST 2024-12-23 08:33:00 Niya Anderson [facility] EXTRA TUBE SST 2024-12-23 08:33:00 Niya Anderson [facility] CBC WITH DIFF 2024-12-23 08:31:00 Nneka Martínez [facility] BASIC METABOLIC PANEL (NA, K, CL, CO2, GLUCOSE, BUN, CREATININE, CA) 2024-12-23 08:31:00 Shanika Martínez [facility] HEPATIC FUNCTION PANEL (09801) (ALB,T.PRO,BILI T,BU/BC,ALT,AST,ALK PHOS) 2024-12-23 08:31:00 [facility]24-12-23 08:31:00 [facility] PHOS[facility]US 2024-12-23 08:31:00 Khosti, Made [facility] URINALYSIS 2024-12-23 08:31:00 NigelostNneka arrington [facility] PROTHROMBIN TIME / INR 2024-12-23 08:31:00 Nigelost nury [facility] ACTIVATED PARTIAL THRMPLAS ROSEMARY 2024-12-23 08:31:00 [facility] SODIUM, URINE RANDOM 2024-12-23 08:31:00 Nigelosti [facility] CREATININE, URINE RANDOM 2024-12-23 08:31:00 Nicole sti [facility] PHOSPHORUS 2024-12-23 08:31:00 NigelostNneka arrington [facility] MAGNESIUM 2024-12-23 08:31:00 Nneka Martínez [facility] HEPATIC FUNCTION PANEL (59994) (ALB,T.PRO,BILI T,BU/BC,ALT,AST,ALK PHOS) 2024-12-23 08:31:00 Mauricio [facility] BASIC METABOLIC PANEL (NA, K, CL, CO2, GLUCOSE, BUN, CREATININE, CA) 2024-12-23 08:31:00 Mauricio [facility] CBC WITH DIFF 2024-12-23 08:31:00 Nneka Martínez [facility] PROTHROMBIN TIME / INR 2024-12-23 08:31:00 Nigelost nury [facility] ACTIVATED PARTIAL THRMPLAS ROSEMARY 2024-12-23 08:31:00 Nigelostnury [facility] URINALYSIS 2024-12-23 08:31:00 Nneka Martínez [facility] CREATININE, URINE RANDOM 2024-12-23 08:31:00 Nicole sti [facility] SODIUM, URINE RANDOM 2024-12-23 08:31:00 Mauricio [facility] HB ECG ROUTINE & RHYTHM STRIP 2024-12-23 08:25:59 Roberto Smart [facility] HB ECG ROUTINE & RHYTHM STRIP 2024-12-23 08:25:59 Roberto Smart [facility] EKG-12 LEAD 2024-12-23 08:25:23 Niya Anderson [facility] EKG-12 LEAD 2024-12-23 08:25:23 Niya Anderson [facility] POCT GLUCOSE (AUTOMATED) 2024-12-23 08:08:00 Niya Anderson [facility] POCT GLUCOSE (AUTOMATED) 2024-12-23 08:08:00 Niya Anderson [facility] TACROLIMUS LEVEL 2024-11-19 05:44:[address] [facility] COMPLETE BLOOD COUNT 2024-11-19 05:44:00 Jacy Sierra a [facility] AUTOMATED DIFFERENTIAL 2024-11-19 05:44:00 Me brooklynn [facility] BASIC METABOLIC PANEL 2024-11-19 05:44:00 Christie Sierra ra [facility] MAGNESIUM LEVEL 2024-11-19 05:44:00 Sharon Sierra [facility] PHOSPHORUS LEVEL 2024-11-19 05:44:[address] [facility] Epic COMPLETE BLOOD COUNT W/DIFF AND PLATELET 2024-11-19 05:44:00 Sharon Sierra [facility] Epic Cardiac event monitor 2024-11-19 00:00:00 [facility] UA WITH MICROSCOPIC NO CULTURE 2024-11-18 18:05:00 Mariaelena Moses [facility] TACROLIMUS LEVEL 2024-11-18 05:43:[address] [facility] COMPLETE BLOOD COUNT 2024-11-18 05:43:00 Jacy Sierra a [facility] AUTOMATED DIFFERENTIAL 2024-11-18 05:43:00 Me Mariela era [facility] BASIC METABOLIC PANEL 2024-11-18 05:43:00 Christie Sierra ra [facility] MAGNESIUM LEVEL 2024-11-18 05:43:00 Sharon Sierra [facility] PHOSPHORUS LEVEL 2024-11-18 05:43:[address] [facility] W/DIFF AND PLATELET 2024-11-18 05:43:00 MarielaSharon damon [facility] PTT 2024-11-18 05:43:00 Kiki Live [facility] TACROLIMUS LEVEL 2024-11-17 05:38:00 CharliCooper [facility] PT AND PTT 2024-11-17 01:04:00 Calos, Kiki landry [facility] BASIC METABOLIC PANEL 2024-11-17 01:03:00 Charli, Addis Elder [facility] MAGNESIUM LEVEL 2024-11-17 01:03:00 CharliCooper [facility] PHOSPHORUS LEVEL 2024-11-17 01:03:00 CharliCooper [facility] COMPLETE BLOOD COUNT 2024-11-17 01:02:00 CharliCooper [facility] AUTOMATED DIFFERENTIAL 2024-11-17 01:02:00 Charli, Al ex [facility] COMPLETE BLOOD COUNT W/DIFF AND PLATELET 2024-11-17 01:02:00 CharliCooper [facility] ENTERIC PATHOGENS WITH CULTURE IF INDICATED 2024-11-16 21:26:00 Shayy Carrasco [facility] PT AND PTT 2024-11-16 18:13:00 Kalee Vincent am [facility] PT AND PTT 2024-11-16 09:59:00 Kalee Vincent am Chris [facility] TACROLIMUS LEVEL 2024-11-16 05:34:00 CharliCooper [facility] KAPPA/LAMBDA FREE LIGHT CHAINS QUANTITIATIVE WITH RATIO 2024-11-16 05:34:00 Shayy Carrasco [facility] COMPLETE BLOOD COUNT 2024-11-16 05:34:00 CharliCooper [facility] AUTOMATED DIFFERENTIAL 2024-11-16 05:34:00 Charli, Al ex [facility] BASIC METABOLIC PANEL 2024-11-16 05:34:00 Charli, Addis Elder [facility] MAGNESIUM LEVEL 2024-11-16 05:34:00 Cooper Augustin [facility] PHOSPHORUS LEVEL 2024-11-16 05:34:00 Cooper Augustin [facility] COMPLETE BLOOD COUNT W/DIFF AND PLATELET 2024-11-16 05:34:00 Cooper Augustin [facility] PTT 2024-11-15 23:17:00 Gerardo Hoffman [facility] BONE WHOLE BODY 2024-11-15 15:28:00 Salena Mcnulty [facility] NM TUMOR LOCALIZATION SPECT CT 1 AREA 1 DAY 2024-11-15 15:27:49 Salena Mcnulty [facility] PT AND PTT 2024-11-15 12:14:00 Saleem Rendon [facility] MRI ABDOMEN PELVIS W AND WO IV CONTRAST 2024-11-15 10:13:00 Kalyn Islas [facility] BLOOD CULTURE 2024-11-15 05:40:00 Shayy Carrasco [facility] CYTOMEGALOVIRUS BY PCR QUANTITATIVE 2024-11-15 05:16:00 Shayy Carrasco [facility] BK VIRUS BY PCR QUANTITATIVE 2024-11-15 05:16:00 Shayy Carrasco [facility] TACROLIMUS LEVEL 2024-11-15 05:16:00 Cooper Augustin [facility] PT AND PTT 2024-11-15 05:16:00 Gerardo [facility] COMPLETE BLOOD COUNT 2024-11-15 05:16:00 Cooper Augustin [facility] AUTOMATED DIFFERENTIAL 2024-11-15 05:16:00 Charli, Jo Elder [facility] BASIC METABOLIC PANEL 2024-11-15 05:16:00 Addis Augustin [facility] MAGNESIUM LEVEL 2024-11-15 05:16:00 Cooper Augustin [facility] PHOSPHORUS LEVEL 2024-11-15 05:16:00 Cooper Augustin [facility] COMPLETE BLOOD COUNT W/DIFF AND PLATELET 2024-11-15 05:16:00 Cooper Augustin [facility] BLOOD CULTURE 2024-11-15 05:16:00 Shayy Carrasco [facility] PTT 2024-11-14 21:09:00 Kiki Live [facility] TRANSPLANT RESPIRATORY VIRAL PANEL [facility] 2024-11-14 13:10:00 LunaShayy holguin Pippa [facility] PTT 2024-11-14 13:01:00 Kiki Live [facility] TACROLIMUS LEVEL 2024-11-14 05:37:00 Charli, Cooper andrade [facility] COMPLETE BLOOD COUNT 2024-11-14 05:37:00 Charli, Cooper Elder [facility] AUTOMATED DIFFERENTIAL 2024-11-14 05:37:00 Charli, Jo Elder [facility] BASIC METABOLIC PANEL 2024-11-14 05:37:00 Charli, Addis Elder [facility] MAGNESIUM LEVEL 2024-11-14 05:37:00 Charli, Cooper Elder [facility] PHOSPHORUS LEVEL 2024-11-14 05:37:00 Charli, Cooper andrade [facility] COMPLETE BLOOD COUNT W/DIFF AND PLATELET 2024-11-14 05:37:00 Charli, Cooper Elder [facility] PTT 2024-11-14 05:37:00 CalosKiki meeks [facility] PTT 2024-11-13 20:51:00 Kiki Live [facility] PROTEIN URINE (UPE) 2024-11-13 19:16:00 Salena Mcnulty [facility] PROTEIN ELECTROPHORESIS URINE PANEL 2024-11-13 19:16:00 Salena Mcnulty [facility] US CAROTID ARTERY DOPPLER BILATERAL 2024-11-13 13:28:00 Salena Mcnulty [facility] PROTEIN ELECTROPHORESIS W/ GEORGE IF INDICATED 2024-11-13 12:03:00 Salena Mcnulty [facility] PROTEIN ELECTROPHORESIS W/ GEORGE IF INDICATED 2024-11-13 12:03:00 Salena Mcnulty [facility] PROTEIN TOTAL 2024-11-13 12:03:00 Salena Mcnulty [facility] PTT 2024-11-13 12:02:00 Salena Mcnulty [facility] UA WITH MICROSCOPIC NO CULTURE 2024-11-13 05:48:00 Isaiah Cruz [facility] TACROLIMUS LEVEL 2024-11-13 05:47:00 CharliCooper [facility] PT AND PTT 2024-11-13 05:47:00 Gerardo Hoffman [facility] COMPLETE BLOOD COUNT 2024-11-13 05:47:00 CharliCooper [facility] AUTOMATED DIFFERENTIAL 2024-11-13 05:47:00 Charli, Al ex [facility] BASIC METABOLIC PANEL 2024-11-13 05:47:00 Charli, Addis Elder [facility] MAGNESIUM LEVEL 2024-11-13 05:47:00 Charli, Cooper Elder [facility] PHOSPHORUS LEVEL 2024-11-13 05:47:00 Charli, Cooper andrade [facility] COMPLETE BLOOD COUNT W/DIFF AND PLATELET 2024-11-13 05:47:00 CharliCooper [facility] PT AND PTT 2024-11-13 00:51:00 Gerardo [facility] US KIDNEY TRANSPLANT 2024-11-12 23:08:00 Going, Isaiah [facility] COMPLETE BLOOD COUNT 2024-11-12 17:02:00 Going, Isaiah [facility] AUTOMATED DIFFERENTIAL 2024-11-12 17:02:00 Going, Reno sesay [facility] COMPLETE BLOOD COUNT W/DIFF AND PLATELET 2024-11-12 17:02:00 Going, Isaiah [facility] PROTIME-INR 2024-11-12 17:02:00 Going, Isaiah [facility] PTT 2024-11-12 17:02:00 Going, Isaiah [facility] MRI CARDIAC MORPHOLOGY AND FUNCTION W AND WO IV CONTRAST 2024-11-12 11:30:00 Gerardo Hoffman [facility] TACROLIMUS LEVEL 2024-11-12 06:14:00 Charli, Cooper andrade [facility] COMPLETE BLOOD COUNT 2024-11-12 06:14:00 Charli, Cooper Elder [facility] AUTOMATED DIFFERENTIAL 2024-11-12 06:14:00 Charli, Al ex [facility] BASIC METABOLIC PANEL 2024-11-12 06:14:00 Charli, Addis alvarado [facility] MAGNESIUM LEVEL 2024-11-12 06:14:00 Charli, Cooper Elder [facility] PHOSPHORUS LEVEL 2024-11-12 06:14:00 Charli, Cooper andrade [facility] COMPLETE BLOOD COUNT W/DIFF AND PLATELET 2024-11-12 06:14:00 Charli, Cooper Elder [facility] URIC ACID 2024-11-11 15:38:00 Going, Isaiah White [facility] C DIFFICILE DNA WITH REFLEX TO TOXIN IF INDICATED 2024-11-11 08:17:00 Charli, Cooper Elder [facility] TACROLIMUS LEVEL 2024-11-11 05:53:00 Charli, Cooper andrade [facility] COMPLETE BLOOD COUNT 2024-11-11 05:53:00 Charli, Cooper Elder [facility] AUTOMATED DIFFERENTIAL 2024-11-11 05:53:00 Charli, Al ex Jerrod [facility] BASIC METABOLIC PANEL 2024-11-11 05:53:00 Charli, Addis Elder [facility] MAGNESIUM LEVEL 2024-11-11 05:53:00 Charli, Cooper Elder [facility] PHOSPHORUS LEVEL 2024-11-11 05:53:00 Charli, Cooper andrade [facility] COMPLETE BLOOD COUNT W/DIFF AND PLATELET 2024-11-11 05:53:00 Charli, Cooper Elder [facility] TRANSTHORACIC ECHO (TTE) COMPLETE W/ CONTRAST AND STRAIN 2024-11-10 08:40:00 Charli, Cooper Elder [facility] TACROLIMUS LEVEL 2024-11-10 04:41:00 Charli, Cooper andrade [facility] BASIC METABOLIC PANEL 2024-11-10 04:41:00 Charli, Addis Edler [facility] MAGNESIUM LEVEL 2024-11-10 04:41:00 Charli, Cooper Elder [facility] PHOSPHORUS LEVEL 2024-11-10 04:41:00 Charli, Cooper andrade [facility] CT BRAIN WO IV CONTRAST 2024-11-10 00:14:38 Charli, Nelson Elder [facility] TRANSPLANT RESPIRATORY VIRAL PANEL [facility] 2024-11-09 22:20:00 Charli, Cooper Elder [facility] COMPLETE BLOOD COUNT 2024-11-09 22:19:00 Charli, Cooper Elder [facility] AUTOMATED DIFFERENTIAL 2024-11-09 22:19:00 Charli, Al ex Jerrod [facility] BASIC METABOLIC PANEL 2024-11-09 22:19:00 CharliAddis [facility] LIPID PANEL W/CALCULATED LDL 2024-11-09 22:19:00 CharliCooper [facility] HEMOGLOBIN A1C 2024-11-09 22:19:00 CharliCooper [facility] COMPLETE BLOOD COUNT W/DIFF AND PLATELET 2024-11-09 22:19:00 Charli Cooper Elder [facility] CT ANGIOGRAM CHEST PULMONARY EMBOLISM 2024-11-09 15:47:24 Kendal Conde [facility] TROPONIN I HIGH SENSITIVITY CARESET (1ST HR) 2024-11-09 12:31:00 Favio Noe [facility] XR CHEST 1 VIEW 2024-11-09 11:52:00 Brannon Noe Della [facility] TROPONIN I HIGH SENSITIVITY CARESET 2024-11-09 11:27:00 Favio Noe [facility] TROPONIN I HIGH SENSITIVITY CARESET (BASELINE) 2024-11-09 11:27:00 Favio Noe [facility] COMPLETE BLOOD COUNT 2024-11-09 11:27:00 Favio Noe [facility] AUTOMATED DIFFERENTIAL 2024-11-09 11:27:00 Favio Thomas [facility] BASIC METABOLIC PANEL 2024-11-09 11:27:00 Favio Noe [facility] MAGNESIUM LEVEL 2024-11-09 11:27:00 Brannon Noe [facility] B-TYPE NATRIURETIC PEPTIDE 2024-11-09 11:27:00 W Favio varghese [facility] PHOSPHORUS LEVEL 2024-11-09 11:27:00 Ofelia Noe [facility] COMPLETE BLOOD COUNT W/DIFF AND PLATELET 2024-11-09 11:27:00 Favio Noe [facility] ECG 12-LEAD 2024-11-09 11:26:15 Brannon Noe [facility] POC GLUCOSE UNSOLICITED RESULTS 2024-11-09 11:16:00 Randolph Katz [facility] CBC WITH DIFF 2024-11-08 13:37:00 Behzad Jolly [facility] BASIC METABOLIC PANEL (NA, K, CL, CO2, GLUCOSE, BUN, CREATININE, CA) 2024-11-08 13:37:00 Shanae, [facility] MAGNESIUM 2024-11-08 13:37:00 Shanae, [facility] PHOSPHORUS 2024-11-08 13:37:00 Shanae, [facility] URINALYSIS 2024-11-08 13:37:00 Shanae, [facility] PROTEIN CREAT RATIO URINE RANDOM 2024-11-08 13:37:00 Shanae, [facility] TACROLIMUS, LEVEL 2024-11-08 13:37:00 Shanae, [facility] HB HLA CLASS I AB HIGH DEFIN QUAL 2024-11-08 13:37:00 Shanae, [facility] BK VIRUS BY QUANTITATIVE NAAT, PLASMA 2024-11-08 13:37:00 Shanae, [facility] CMV BY QUANTITATIVE NAAT, PLASMA 2024-11-08 13:37:00 Shanae, [facility] URINALYSIS 2024-10-15 13:32:00 Shanae [facility] PROTEIN CREAT RATIO URINE RANDOM 2024-10-15 13:32:00 Shanae [facility] CBC WITH DIFF 2024-10-15 13:29:00 Shanae [facility] BASIC METABOLIC PANEL (NA, K, CL, CO2, GLUCOSE, BUN, CREATININE, CA) 2024-10-15 13:29:00 Shanae, [facility] MAGNESIUM 2024-10-15 13:29:00 Shanae, [facility] PHOSPHORUS 2024-10-15 13:29:00 Shanae, [facility] TACROLIMUS, LEVEL 2024-10-15 13:29:00 Shanae, [facility] HB HLA CLASS I AB HIGH DEFIN QUAL 2024-10-15 13:29:00 Shanae, [facility] BK VIRUS BY QUANTITATIVE NAAT, PLASMA 2024-10-15 13:29:00 Shanae [facility] CMV BY QUANTITATIVE NAAT, PLASMA 2024-10-15 13:29:00 Shanae [facility] FREE T4 2024-08-03 20:20:[address] [facility] THYROID STIMULATING HORMONE 2024-08-03 20:20:00 Nicole [facility] LIPID PANEL (32311)(TOTAL CHOLESTEROL, TRIGLYCERIDES, HDL) 2024-08-03 20:20:00 Nicole [facility] GLYCOSYLATED HEMOGLOBIN (A1C) 2024-08-03 20:20:00 Nicole [facility] VITAMIN D, 25-OH 2024-08-03 20:20:00 Nicole [facility] FREE T3 2024-08-03 20:20:[address] [facility] TDAP VACCINE, >11 YRS, IM 2024-01-21 13:27:55 Everton lopez [facility] SARS-COV-2 COVID 19 BRITTANEY SUCROSE VACCINE 12+, , 0.3 ML (30 MCG), IM PFIZER (ROCHA TOP) 2024-01-21 13:27:55 Nicole [facility] FLU VACC(),65+YR,0.5 ML,IM,ADJUVANTED,TIV(FLUAD ) 2024-01-13 14:50:29 Tomeka Hoyos [facility] INTACT PTH CALCIUM GROUP 2024-01-05 21:20:00 Shanae, As [facility] EXTERNAL DD-CFDNA 2024-01-05 05:00:00 Cinthia Jollym Gricelda [facility] FREE T4 2023-10-07 15:37:00 [facility] 2023-10-07 15:37:00 Phil Phillipsssica [facility] COMP. METABOLIC PANEL (36781) 2023-10-07 15:37:00 Nicolle Phillips [facility] LIPID PANEL (07005)(TOTAL CHOLESTEROL, TRIGLYCERIDES, HDL) 2023-10-07 15:37:00 [place] [facility] CBC WITH DIFF 2023-10-07 15:37:00 [place] [facility] GLYCOSYLATED HEMOGLOBIN (A1C) 2023-10-07 15:37:00 [place] [facility] URINALYSIS 2023-10-07 15:37:00 [facility] POCT GLUCOSE (AUTOMATED) 2023-07-17 13:43:00 Lick, Sco tt [facility] TACROLIMUS, LEVEL 2023-07-17 10:17:00 Parminder Rueda As if [facility] POCT GLUCOSE (AUTOMATED) 2023-07-17 08:23:00 Lick, Sco tt [facility] POCT GLUCOSE (AUTOMATED) 2023-07-17 04:13:00 Lick, Sco tt [facility] POCT GLUCOSE (AUTOMATED) 2023-07-17 01:23:00 Lick, Sco tt [facility] POCT GLUCOSE (AUTOMATED) 2023-07-16 22:11:00 Lick, Sco tt [facility] POCT GLUCOSE (AUTOMATED) 2023-07-16 16:39:00 Lick, Sco tt [facility] POCT GLUCOSE (AUTOMATED) 2023-07-16 12:33:00 Lick, Sco tt [facility] POCT GLUCOSE (AUTOMATED) 2023-07-16 08:30:00 Lick, Sco tt [facility] POCT GLUCOSE (AUTOMATED) 2023-07-16 04:16:00 Lick, Sco tt [facility] BASIC METABOLIC PANEL (NA, K, CL, CO2, GLUCOSE, BUN, CREATININE, CA) 2023-07-15 22:41:00 Pam Stearns [facility] TACROLIMUS, LEVEL 2023-07-15 22:41:00 Pam Stearns [facility] POCT GLUCOSE (AUTOMATED) 2023-07-15 21:18:00 Lick, José Miguelo tt [facility] POCT GLUCOSE (AUTOMATED) 2023-07-15 16:50:00 Lick, José Miguelo tt [facility] POCT GLUCOSE (AUTOMATED) 2023-07-15 12:38:00 Lick, Sco tt [facility] POCT GLUCOSE (AUTOMATED) 2023-07-15 09:39:00 Lick, Sco tt [facility] POCT GLUCOSE (AUTOMATED) 2023-07-15 05:18:00 Lick, José Miguelo tt [facility] POCT GLUCOSE (AUTOMATED) 2023-07-15 02:22:00 Lick, Sco tt [facility] POCT GLUCOSE (AUTOMATED) 2023-07-14 21:00:00 Lick, José Miguelo tt [facility] POCT GLUCOSE (AUTOMATED) 2023-07-14 16:40:00 Lick, Sco tt [facility] POCT GLUCOSE (AUTOMATED) 2023-07-14 12:34:00 Lick, José Miguelo tt [facility] POCT GLUCOSE (AUTOMATED) 2023-07-14 09:28:00 Lick, José Miguelo tt [facility] POCT GLUCOSE (AUTOMATED) 2023-07-14 05:05:00 Lick, José Miguelo tt [facility] POCT GLUCOSE (AUTOMATED) 2023-07-14 02:35:00 Lick, Sco tt [facility] POCT GLUCOSE (AUTOMATED) 2023-07-13 20:41:00 Lick, Sco tt [facility] POCT GLUCOSE (AUTOMATED) 2023-07-13 16:57:00 Lick, Sco tt [facility] POCT GLUCOSE (AUTOMATED) 2023-07-13 13:06:00 Lick, Sco tt [facility] XR CHEST 2 VW 2023-07-13 11:41:24 Elidia Raphael [facility] TACROLIMUS, LEVEL 2023-07-13 09:51:00 Parminder Rueda if [facility] POCT GLUCOSE (AUTOMATED) 2023-07-13 08:10:00 Lick, José Miguelo tt [facility] POCT GLUCOSE (AUTOMATED) 2023-07-13 04:11:00 Lick, Sco tt [facility] POCT GLUCOSE (AUTOMATED) 2023-07-13 00:34:00 Lick, José Miguelo tt [facility] POCT GLUCOSE (AUTOMATED) 2023-07-12 21:30:00 Lick, Sco tt [facility] POCT GLUCOSE (AUTOMATED) 2023-07-12 16:49:00 Lick, Sco tt [facility] POCT GLUCOSE (AUTOMATED) 2023-07-12 12:51:00 Lick, José Miguelo tt [facility] BASIC METABOLIC PANEL (NA, K, CL, CO2, GLUCOSE, BUN, CREATININE, CA) 2023-07-12 09:53:00 Elidia Aragon [facility] TACROLIMUS, LEVEL 2023-07-12 09:53:00 Parminder Rueda As if [facility] CBC WITH DIFF 2023-07-12 09:53:00 Raphael Elidia [facility] POCT GLUCOSE (AUTOMATED) 2023-07-12 09:52:00 LickJosé Miguelo tt [facility] POCT GLUCOSE (AUTOMATED) 2023-07-12 05:11:00 Lick, José Miguelo tt [facility] POCT GLUCOSE (AUTOMATED) 2023-07-12 01:40:00 Lick, José Miguelo tt [facility] EKG-12 LEAD 2023-07-12 00:21:45 Jt Alejandro [facility] MAGNESIUM 2023-07-12 00:09:00 Allen Patterson [facility] BASIC METABOLIC PANEL (NA, K, CL, CO2, GLUCOSE, BUN, CREATININE, CA) 2023-07-12 00:09:00 Allen Townsend [facility] HB ECG ROUTINE & RHYTHM STRIP 2023-07-12 00:05:30 Allen Townsend [facility] EKG-12 LEAD 2023-07-11 23:50:46 Javon [facility] POCT GLUCOSE (AUTOMATED) 2023-07-11 21:18:00 LickJosé Miguelo carmen [facility] POCT GLUCOSE (AUTOMATED) 2023-07-11 20:38:00 LickJosé Miguelo tt [facility] CBC WITH DIFF 2023-07-11 16:23:00 Savanna Salinas [facility] POCT GLUCOSE (AUTOMATED) 2023-07-11 16:22:00 ChuykJosé Miguelo tt [facility] TRANSFUSE PACKED RBC 2023-07-11 14:15:00 Tequila Brown [facility] PREPARE PACKED RBC 2023-07-11 14:05:53 Isauro Brown [facility] POCT GLUCOSE (AUTOMATED) 2023-07-11 13:00:00 ChuykJosé Miguelo carmen [facility] HB ABO GROUPING 2023-07-11 12:08:00 [facility] WITHOUT [facility]FF 2023-07-11 11:33:00 Isauro Brown [facility] PHOSPHORUS 2023-07-11 10:19:00 Isauro Brown [facility] MAGNESIUM 2023-07-11 10:19:00 [facility] BASIC METABOLIC PANEL (NA, K, CL, CO2, GLUCOSE, BUN, CREATININE, CA) 2023-07-11 10:19:00 Isauro Brown [facility] TACROLIMUS, LEVEL 2023-07-11 10:19:00 Parminder Rueda As if [facility] CBC WITHOUT DIFF 2023-07-11 10:19:00 Isauro Brown [facility] POCT GLUCOSE (AUTOMATED) 2023-07-11 10:17:00 LickJosé Miguelo carmen [facility] POCT GLUCOSE (AUTOMATED) 2023-07-11 07:11:00 LickJosé Miguelo tt [facility] POCT GLUCOSE (AUTOMATED) 2023-07-11 01:59:00 Lick, Sco tt [facility] POCT GLUCOSE (AUTOMATED) 2023-07-10 22:10:00 Lick, José Miguelo tt [facility] POCT GLUCOSE (AUTOMATED) 2023-07-10 16:42:00 Lick, Sco tt [facility] XR KUB 2023-07-10 16:24:00 Kristofer Fitch [facility] TACROLIMUS, LEVEL 2023-07-10 15:41:00 Mookie Landis in [facility] POCT GLUCOSE (AUTOMATED) 2023-07-10 12:56:00 Damian Alejandro [facility] PHOSPHORUS 2023-07-10 09:21:00 [facility] MAGNESIUM 2023-07-10 09:21:00 Kevin Isauro [facility] BASIC METABOLIC PANEL (NA, K, CL, CO2, GLUCOSE, BUN, CREATININE, CA) 2023-07-10 09:21:00 [facility]FF 2023-07-10 09:21:00 Isauro Brown [facility] AC PANEL 20 + LACTIC ACID 2023-07-10 09:21:00 Kristofer Fitch [facility] POCT GLUCOSE (AUTOMATED) 2023-07-10 05:26:00 Damian Alejandro [facility] POCT GLUCOSE (AUTOMATED) 2023-07-10 01:47:00 Damian Alejandro [facility] AC PANEL 20 + LACTIC ACID 2023-07-09 17:42:00 Constantine [facility] AC PANEL 20 + LACTIC ACID 2023-07-09 17:42:00 Constantine [facility] AC PANEL 20 + LACTIC ACID 2023-07-09 17:42:00 [facility] ([facility]OMATED) 2023-07-09 13:20:00 LickDamian [facility] POCT GLUCOSE (AUTOMATED) 2023-07-09 13:20:00 LickJosé Miguelo tt [facility] POCT GLUCOSE (AUTOMATED) 2023-07-09 13:20:00 LickJosé Miguelo tt [facility] PHOSPHORUS 2023-07-09 09:07:00 Darling Nolen [facility] MAGNESIUM 2023-07-09 09:07:00 Nolen, Nor a [facility] BASIC METABOLIC PANEL (NA, K, CL, CO2, GLUCOSE, BUN, CREATININE, CA) 2023-07-09 09:07:00 [facility]FF 2023-07-09 09:07:00 Nolen, Darling damon [facility] PROTHROMBIN TIME / INR 2023-07-09 09:07:00 [facility] 2023-07-09 09:07:00 Nolen, Darling damon [facility] MAGNESIUM 2023-07-09 09:07:00 Nolen, Nor nelson [facility] BASIC METABOLIC PANEL (NA, K, CL, CO2, GLUCOSE, BUN, CREATININE, CA) 2023-07-09 09:07:00 Kerry Nolen [facility] CBC WITH DIFF 2023-07-09 09:07:00 Nolen, Darling damon [facility] PROTHROMBIN TIME / INR 2023-07-09 09:07:00 Vasqu ezKerry [facility] PHOSPHORUS 2023-07-09 09:07:00 Nolen, Darling damon [facility] MAGNESIUM 2023-07-09 09:07:00 Nolen, Nor nelson [facility] BASIC METABOLIC PANEL (NA, K, CL, CO2, GLUCOSE, BUN, CREATININE, CA) 2023-07-09 09:07:00 NolenKerry [facility] CBC WITH DIFF 2023-07-09 09:07:00 Nolen, Darling damon [facility] PROTHROMBIN TIME / INR 2023-07-09 09:07:00 Vasqu ezKerry [facility] POCT GLUCOSE (AUTOMATED) 2023-07-09 09:06:00 Lick, Sco tt [facility] POCT GLUCOSE (AUTOMATED) 2023-07-09 09:06:00 Lick, Sco tt [facility] POCT GLUCOSE (AUTOMATED) 2023-07-09 09:06:00 Lick, Sco tt [facility] XR CHEST 1 VW 2023-07-09 08:54:00 Nolen, Nor a Dylon [facility] XR CHEST 1 VW 2023-07-09 08:54:00 Nolen, Nor a Dylon [facility] XR CHEST 1 VW 2023-07-09 08:54:00 Nolen, Nor a Dylon [facility] POCT GLUCOSE (AUTOMATED) 2023-07-09 07:34:00 Lick, Sco tt [facility] POCT GLUCOSE (AUTOMATED) 2023-07-09 07:34:00 Lick, Sco tt [facility] POCT GLUCOSE (AUTOMATED) 2023-07-09 07:34:00 Lick, Sco tt [facility] CBC WITH DIFF 2023-07-09 07:26:00 Savanna Salinas [facility] CBC WITH DIFF 2023-07-09 07:26:00 Savanna Salinas [facility] CBC WITH DIFF 2023-07-09 07:26:00 Savanna Salinas [facility] POCT GLUCOSE (AUTOMATED) 2023-07-09 04:40:00 Lick, Sco tt [facility] POCT GLUCOSE (AUTOMATED) 2023-07-09 04:40:00 Lick, Sco tt [facility] POCT GLUCOSE (AUTOMATED) 2023-07-09 04:40:00 Lick, Sco tt [facility] TRANSFUSE PACKED RBC 2023-07-09 04:25:00 Darron Salinas [facility] TRANSFUSE PACKED RBC 2023-07-09 04:25:00 Darron Salinas [facility] TRANSFUSE PACKED RBC 2023-07-09 04:25:00 Darron Salinas [facility] PREPARE PACKED RBC 2023-07-09 04:15:12 Savanna Salinas [facility] PREPARE PACKED RBC 2023-07-09 04:15:12 Savanna Salinas [facility] PREPARE PACKED RBC 2023-07-09 04:15:12 Savanna Salinas [facility] XR CHEST 1 VW 2023-07-09 03:26:19 Savanna Salinas [facility] XR CHEST 1 2023-07-09 03:26:19 Savanna Salinas [facility] XR CHEST 1 VW 2023-07-09 03:26:19 Savanna Salinas [facility] PREPARE PACKED RBC 2023-07-09 02:54:21 [facility]io [facility] 2023-07-09 02:54:21 Ginny Husseinri [facility] RBC 2023-07-09 02:54:21 Julio Hussein [facility] AC PANEL 20 + LACTIC ACID 2023-07-09 02:42:00 Constantine [facility] AC PANEL 20 + LACTIC ACID 2023-07-09 02:42:00 Constantine [facility] AC PANEL 20 + LACTIC ACID 2023-07-09 02:42:00 Constantine [facility] BASIC METABOLIC PANEL (NA, K, CL, CO2, GLUCOSE, BUN, CREATININE, CA) 2023-07-09 02:41:00 Savanna Salinas [facility] CBC WITH DIFF 2023-07-09 02:41:00 [facility] / [facility] 2023-07-09 02:41:00 Nazario Salinas [facility] ACTIVATED PARTIAL THRMPLAS ROSEMARY 2023-07-09 02:41:00 Savanna Salinas [facility] BASIC METABOLIC PANEL (NA, K, CL, CO2, GLUCOSE, BUN, CREATININE, CA) 2023-07-09 02:41:00 Savanna Salinas [facility] CBC WITH DIFF 2023-07-09 02:41:00 Savanna Salinas [facility] PROTHROMBIN TIME / INR 2023-07-09 02:41:00 Nazario [facility] ACTIVATED PARTIAL THRMPLAS ROSEMARY 2023-07-09 02:41:00 Savanna Salinas [facility] BASIC METABOLIC PANEL (NA, K, CL, CO2, GLUCOSE, BUN, CREATININE, CA) 2023-07-09 02:41:00 Savanna Salinas [facility] CBC WITH DIFF 2023-07-09 02:41:00 Savanna Salinas [facility] PROTHROMBIN TIME / INR 2023-07-09 02:41:00 Nazario Salinas [facility] ACTIVATED PARTIAL THRMPLAS ROSEMARY 2023-07-09 02:41:00 Savanna Salinas [facility] TRANSFUSE PLATELETS 2023-07-09 01:47:00 Volnov[facility] 2023-07-09 01:47:00 Volnov, Julio [facility] TRANSF[facility] PLATELETS 2023-07-09 01:47:00 Volnov, [facility] TRANSF[facility] PLATELETS 2023-07-09 01:44:00 Volnov, Julio U niversity [facility] TRANSFUSE PLATELETS 2023-07-09 01:44:00 Volnov, Julio U niversity [facility] TRANSFUSE PLATELETS 2023-07-09 01:44:00 Volnov, Julio U niversity [facility] PREPARE PLATELETS 2023-07-09 01:38:45 Volnov, Julio [facility] 2023-07-09 01:38:45 Volnov, Julio [facility]TS 2023-07-09 01:38:45 Volnov, Julio [facility] TRANSF[facility] PACKED RBC 2023-07-09 01:30:00 Darron [facility] TRANSFUSE PACKED RBC 2023-07-09 01:30:00 Darron Salinas [facility] TRANSFUSE PACKED RBC 2023-07-09 01:30:00 Darron Salinas [facility] ABG+COOX+NA+K+GLU+CA2+ 2023-07-09 01:24:00 Jt Alejandro [facility] ACUTE CARE ARTERIAL 2023-07-09 01:17:00 José Miguel Alejandro [facility] ACUTE CARE ARTERIAL 2023-07-09 01:17:00 LicJosé Miguel coles [facility] ISTAT ACUTE CARE ARTERIAL 2023-07-09 01:17:00 José Miguel Alejandro [facility] CHEST EXPLORATION 2023-07-09 00:33:00 Jt Alejandro Gricelda [facility] CHEST EXPLORATION 2023-07-09 00:33:00 Jt Alejandro Gricelda [facility] ACTIVATED PARTIAL THRMPLAS ROSEMARY 2023-07-09 00:27:00 Sanket Blair [facility] ACTIVATED PARTIAL THRMPLAS ROSEMARY 2023-07-09 00:27:00 Sanket Blair [facility] ACTIVATED PARTIAL THRMPLAS ROSEMARY 2023-07-09 00:27:00 Sanket Blair [facility] PHOSPHORUS 2023-07-08 23:53:00 Kari Peter [facility] MAGNESIUM 2023-07-08 23:53:00 Kari Peter [facility] BASIC METABOLIC PANEL (NA, K, CL, CO2, GLUCOSE, BUN, CREATININE, CA) 2023-07-08 23:53:00 Pippa Peter [facility] CBC WITH DIFF 2023-07-08 23:53:00 Kari Peter [facility] PROTHROMBIN TIME / INR 2023-07-08 23:53:00 Pippa Peter [facility] ACTIVATED PARTIAL THRMPLAS ROSEMARY 2023-07-08 23:53:00 Pippa Peter [facility] FIBRINOGEN 2023-07-08 23:53:00 Kari Peter [facility] PHOSPHORUS 2023-07-08 23:53:00 Kari Peter [facility] MAGNESIUM 2023-07-08 23:53:00 Kari Peter [facility] BASIC METABOLIC PANEL (NA, K, CL, CO2, GLUCOSE, BUN, CREATININE, CA) 2023-07-08 23:53:00 Pippa Peter [facility] CBC WITH DIFF 2023-07-08 23:53:00 Kari Peter [facility] PROTHROMBIN TIME / INR 2023-07-08 23:53:00 Pippa Peter [facility] ACTIVATED PARTIAL THRMPLAS ROSEMARY 2023-07-08 23:53:00 Pippa Peter [facility] FIBRINOGEN 2023-07-08 23:53:00 Kari Peter [facility] PHOSPHORUS 2023-07-08 23:53:00 Kari Peter [facility] MAGNESIUM 2023-07-08 23:53:00 Kari Peter [facility] BASIC METABOLIC PANEL (NA, K, CL, CO2, GLUCOSE, BUN, CREATININE, CA) 2023-07-08 23:53:00 Pippa Peter [facility] CBC WITH DIFF 2023-07-08 23:53:00 Kari Peter [facility] PROTHROMBIN TIME / INR 2023-07-08 23:53:00 Pippa Peter [facility] ACTIVATED PARTIAL THRMPLAS ROSEMARY 2023-07-08 23:53:00 Pippa Peter [facility] FIBRINOGEN 2023-07-08 23:53:00 Kari Peter [facility] HB ECG ROUTINE & RHYTHM STRIP 2023-07-08 19:44:47 [facility] RHYTHM STRIP 2023-07-08 19:44:47 Kerry Nolen [facility] HB ECG ROUTINE & RHYTHM STRIP 2023-07-08 19:44:47 [facility] 1 2023-07-08 19:39:19 Darling Nolen [facility] XR CHEST 1 2023-07-08 19:39:19 [facility] 1 2023-07-08 19:39:19 [facility] 1 2023-07-08 19:39:19 Callum Nor [facility] ABDOMEN 1 2023-07-08 19:39:19 Darling Nolen [facility] XR CHEST 1 2023-07-08 19:39:19 Darling Nolen [facility] AC PANEL 20 + LACTIC ACID 2023-07-08 19:17:00 Kristofer Fitch [facility] AC PANEL 20 + LACTIC ACID 2023-07-08 19:17:00 Constantine [facility] AC PANEL 20 + LACTIC ACID 2023-07-08 19:17:00 Kristofer Fitch [facility] PROTHROMBIN TIME / INR 2023-07-08 19:15:00 Sammy sosa Tez [facility] ACTIVATED PARTIAL THRMPLAS ROSEMARY 2023-07-08 19:15:00 Tez Carrasco Ignacio [facility] FIBRINOGEN 2023-07-08 19:15:00 Chandra Carrasco [facility] PROTHROMBIN TIME / INR 2023-07-08 19:15:00 Sammy sosa Tez [facility] ACTIVATED PARTIAL THRMPLAS ROSEMARY 2023-07-08 19:15:00 Luna Tez [facility] FIBRINOGEN 2023-07-08 19:15:00 Chandra Carrasco [facility] PROTHROMBIN TIME / INR 2023-07-08 19:15:00 Sammy sosa Tez [facility] ACTIVATED PARTIAL THRMPLAS ROSEMARY 2023-07-08 19:15:00 Luna Tez [facility] FIBRINOGEN 2023-07-08 19:15:00 Chandra Carrasco Ignacio [facility] PHOSPHORUS 2023-07-08 19:13:00 Darling Nolen [facility] MAGNESIUM 2023-07-08 19:13:00 Darling Nolen [facility] BASIC METABOLIC PANEL (NA, K, CL, CO2, GLUCOSE, BUN, CREATININE, CA) 2023-07-08 19:13:00 Kerry Nolen [facility] CBC WITH DIFF 2023-07-08 19:13:00 Darling Nolen [facility] PHOSPHORUS 2023-07-08 19:13:00 Callum, Darling daomn [facility] MAGNESIUM 2023-07-08 19:13:00 Callum, Darling damon [facility] BASIC METABOLIC PANEL (NA, K, CL, CO2, GLUCOSE, BUN, CREATININE, CA) 2023-07-08 19:13:00 [facility]FF 2023-07-08 19:13:00 Callum, Darling damon [facility] PHOSPHORUS 2023-07-08 19:13:00 Callum, Nor a [facility] MAGNESIUM 2023-07-08 19:13:00 Callum, Nor nelson [facility] BASIC METABOLIC PANEL (NA, K, CL, CO2, GLUCOSE, BUN, CREATININE, CA) 2023-07-08 19:13:00 Kerry Nolen [facility] CBC WITH DIFF 2023-07-08 19:13:00 Callum, Darling damon [facility] ABG+COOX+NA+K+GLU+CA2+ 2023-07-08 18:33:00 Lick [facility] ACUTE CARE ARTERIAL 2023-07-08 17:48:00 Mukesh [facility] ACUTE CARE ARTERIAL 2023-07-08 17:48:00 Mukesh [facility] ACUTE CARE ARTERIAL 2023-07-08 17:48:00 Mukesh [facility] ABG+COOX+NA+K+GLU+CA2+ 2023-07-08 17:39:00 Lick [facility] ACUTE CARE ARTERIAL 2023-07-08 17:10:00 Mukesh [facility] ACUTE CARE ARTERIAL 2023-07-08 17:10:00 Mukesh [facility] ACUTE CARE ARTERIAL 2023-07-08 17:10:00 Mukesh [facility] ACUTE CARE ARTERIAL 2023-07-08 16:40:00 Mukesh [facility] ACUTE CARE ARTERIAL 2023-07-08 16:40:00 Mukesh [facility] ACUTE CARE ARTERIAL 2023-07-08 16:40:00 Mukesh [facility] ACUTE CARE ARTERIAL 2023-07-08 16:11:00 Mukesh [facility] ACUTE CARE ARTERIAL 2023-07-08 16:11:00 Mukesh [facility] ACUTE CARE ARTERIAL 2023-07-08 16:11:00 Mukesh [facility] ACUTE CARE ARTERIAL 2023-07-08 15:47:00 Mukesh [facility] ACUTE CARE ARTERIAL 2023-07-08 15:47:00 Mukesh [facility] ACUTE CARE ARTERIAL 2023-07-08 15:47:00 Mukesh [facility] ACUTE CARE ARTERIAL 2023-07-08 15:14:00 Mukesh [facility] ACUTE CARE ARTERIAL 2023-07-08 15:14:00 Mukesh [facility] ACUTE CARE ARTERIAL 2023-07-08 15:14:00 Mukesh [facility] ACUTE CARE ARTERIAL 2023-07-08 13:15:00 Mukesh [facility] ACUTE CARE ARTERIAL 2023-07-08 13:15:00 Mukesh [facility] ACUTE CARE ARTERIAL 2023-07-08 13:15:00 Mukesh [facility] CORONARY ARTERY BYPASS GRAFT 2023-07-08 11:39:00 Jt Alejandro [facility] ENDOSCOPIC VEIN HARVEST 2023-07-08 11:39:00 Colt Alejandro [facility] CORONARY ARTERY BYPASS GRAFT 2023-07-08 11:39:00 Javon [facility] ENDOSCOPIC VEIN HARVEST 2023-07-08 11:39:00 Colt Alejandro [facility] MAGNESIUM 2023-07-08 10:37:00 Chandra Kinney [facility] BASIC METABOLIC PANEL (NA, K, CL, CO2, GLUCOSE, BUN, CREATININE, CA) 2023-07-08 10:37:00 [facility] 2023-07-08 10:37:00 Chandra Kinney [facility] MAGNESIUM 2023-07-08 10:37:00 Chandra Kinney [facility] BASIC METABOLIC PANEL (NA, K, CL, CO2, GLUCOSE, BUN, CREATININE, CA) 2023-07-08 10:37:00 Елена Kinney [facility] CBC WITH DIFF 2023-07-08 10:37:00 Chandra Kinney [facility] MAGNESIUM 2023-07-08 10:37:00 Chandra Kinney [facility] BASIC METABOLIC PANEL (NA, K, CL, CO2, GLUCOSE, BUN, CREATININE, CA) 2023-07-08 10:37:00 Елена Kinney [facility] CBC WITH DIFF 2023-07-08 10:37:00 Chandra Kinney [facility] MAGNESIUM 2023-07-07 22:58:00 Chandra Kinney [facility] ACTIVATED PARTIAL THRMPLAS ROSEMARY 2023-07-07 22:58:00 Mukesh [facility] HB ABO GROUPING 2023-07-07 22:58:00 Wayne Sotomayor [facility] MAGNESIUM 2023-07-07 22:58:00 Chandra Kinney [facility] ACTIVATED PARTIAL THRMPLAS ROSEMARY 2023-07-07 22:58:00 Mukesh [facility] HB ABO GROUPING 2023-07-07 22:58:00 Wayne Sotomayor [facility] MAGNESIUM 2023-07-07 22:58:00 Chandra Kinney [facility] ACTIVATED PARTIAL THRMPLAS ROSEMARY 2023-07-07 22:58:00 Venita Mayorga [facility] HB ABO GROUPING 2023-07-07 22:58:00 Wayne Sotomayor [facility] XR CHEST 2 VW 2023-07-07 13:58:00 [facility] XR CHEST 2 VW 2023-07-07 13:58:00 [facility] XR CHEST 2 2023-07-07 13:58:00 [facility] XR CHEST 2 2023-07-07 13:58:00 [facility] MAGNESIUM 2023-07-07 10:37:00 [facility] MET[facility]OLIC PANEL (NA, K, CL, CO2, GLUCOSE, BUN, CREATININE, CA) 2023-07-07 10:37:00 Dell [facility] CBC WITH DIFF 2023-07-07 10:37:00 [facility] ACTIVATED PARTIAL THRMPLAS ROSEMARY 2023-07-07 10:37:00 Jelani [facility] MAGNESIUM 2023-07-07 10:37:00 [facility] BASIC METABOLIC PANEL (NA, K, CL, CO2, GLUCOSE, BUN, CREATININE, CA) 2023-07-07 10:37:00 Dell [facility] CBC WITH DIFF 2023-07-07 10:37:00 [facility] ACTIV[facility] PARTIAL THRMPLAS [place] 2023-07-07 10:37:00 Jelani [facility] MAGNESIUM 2023-07-07 10:37:00 [facility] BASIC METABOLIC PANEL (NA, K, CL, CO2, GLUCOSE, BUN, CREATININE, CA) 2023-07-07 10:37:00 Catalino [facility] CBC WITH DIFF 2023-07-07 10:37:00 [facility] ACTIVATED PARTIAL THRMPLAS [place] 2023-07-07 10:37:00 Palomares [facility] MAGNESIUM 2023-07-07 10:37:00 [facility] BASIC METABOLIC PANEL (NA, K, CL, CO2, GLUCOSE, BUN, CREATININE, CA) 2023-07-07 10:37:00 [facility] CBC WITH DIFF 2023-07-07 10:37:00 [facility] ACTIVATED PARTIAL THRMPLAS [place] 2023-07-07 10:37:00 Palomares, [facility] ACTIVATED PARTIAL THRMPLAS [place] 2023-07-07 05:01:00 Palomares, [facility] ACTIVATED PARTIAL THRMPLAS [place] 2023-07-07 05:01:00 Palomares, [facility] ACTIVATED PARTIAL THRMPLAS [place] 2023-07-07 05:01:00 Palomares, [facility] ACTIVATED PARTIAL THRMPLAS [place] 2023-07-07 05:01:00 Palomares, [facility] CAROTID DUPLEX BILATERAL - BY VASCULAR LAB 2023-07-06 18:25:00 Елена Kinney [facility] CAROTID DUPLEX BILATERAL - BY VASCULAR LAB 2023-07-06 18:25:00 Елена Kinney [facility] CAROTID DUPLEX BILATERAL - BY VASCULAR LAB 2023-07-06 18:25:00 Елена Kinney [facility] CAROTID DUPLEX BILATERAL - BY VASCULAR LAB 2023-07-06 18:25:00 Елена Kinney [facility] ACTIVATED PARTIAL THRMPLAS [place] 2023-07-06 16:55:00 Palomares, [facility] ACTIVATED PARTIAL THRMPLAS [place] 2023-07-06 16:55:00 Palomares, [facility] ACTIVATED PARTIAL THRMPLAS [place] 2023-07-06 16:55:00 Palomares, [facility] ACTIVATED PARTIAL THRMPLAS [place] 2023-07-06 16:55:00 Palomares, [facility] MAGNESIUM 2023-07-06 06:18:[facility] (NA, K, CL, CO2, GLUCOSE, BUN, CREATININE, CA) 2023-07-06 06:18:00 [facility] CBC WITH DIFF 2023-07-06 06:18:00 [facility] ACTIVATED PARTIAL THRMPLAS [place] 2023-07-06 06:18:00 Sanket Blair [facility] MAGNESIUM 2023-07-06 06:18:00 [facility] BASIC METABOLIC PANEL (NA, K, CL, CO2, GLUCOSE, BUN, CREATININE, CA) 2023-07-06 06:18:00 Sali [facility] CBC WITH DIFF 2023-07-06 06:18:00 [facility] ACTIVATED PARTIAL THRMPLAS [place] 2023-07-06 06:18:00 Sanket Blair [facility] MAGNESIUM 2023-07-06 06:18:00 [facility] BASIC METABOLIC PANEL (NA, K, CL, CO2, GLUCOSE, BUN, CREATININE, CA) 2023-07-06 06:18:00 [facility] CBC WITH DIFF 2023-07-06 06:18:00 [facility] ACTIVATED PARTIAL THRMPLAS [place] 2023-07-06 06:18:00 Sanket Blair [facility] MAGNESIUM 2023-07-06 06:18:00 [facility] BASIC METABOLIC PANEL (NA, K, CL, CO2, GLUCOSE, BUN, CREATININE, CA) 2023-07-06 06:18:00 [facility] CBC WITH DIFF 2023-07-06 06:18:00 [facility] ACTIVATED PARTIAL THRMPLAS [place] 2023-07-06 06:18:00 Sanket Blair [facility] ACTIVATED PARTIAL THRMPLAS [place] 2023-07-05 17:59:00 Sanket Blair [facility] ACTIVATED PARTIAL THRMPLAS [place] 2023-07-05 17:59:00 Sanket Blair [facility] ACTIVATED PARTIAL THRMPLAS [place] 2023-07-05 17:59:00 Sanket Blair [facility] ACTIVATED PARTIAL THRMPLAS [place] 2023-07-05 17:59:00 Sanket Blair [facility] MAGNESIUM 2023-07-05 11:38:00 [facility] BASIC METABOLIC PANEL (NA, K, CL, CO2, GLUCOSE, BUN, CREATININE, CA) 2023-07-05 11:38:00 [facility] CBC WITH DIFF 2023-07-05 11:38:00 [facility] MAGNESIUM 2023-07-05 11:38:00 [facility] BASIC METABOLIC PANEL (NA, K, CL, CO2, GLUCOSE, BUN, CREATININE, CA) 2023-07-05 11:38:00 [facility] CBC WITH DIFF 2023-07-05 11:38:00 [facility] MAGNESIUM 2023-07-05 11:38:00 [facility] BASIC METABOLIC PANEL (NA, K, CL, CO2, GLUCOSE, BUN, CREATININE, CA) 2023-07-05 11:38:00 [facility] CBC WITH DIFF 2023-07-05 11:38:00 [facility] MAGNESIUM 2023-07-05 11:38:00 [facility] BASIC METABOLIC PANEL (NA, K, CL, CO2, GLUCOSE, BUN, CREATININE, CA) 2023-07-05 11:38:00 [facility] CBC WITH DIFF 2023-07-05 11:38:00 [facility] ACTIVATED PARTIAL THRMPLAS [place] 2023-07-05 08:16:00 Sanket Blair [facility] ACTIVATED PARTIAL THRMPLAS ROS[place] 2023-07-05 08:16:00 Sanket Blair [facility] ACTIVATED PARTIAL THRMPLAS [place] 2023-07-05 08:16:00 Sanket Blair [facility] ACTIVATED PARTIAL THRMPLAS [place] 2023-07-05 08:16:00 Blair, Sanket [facility] CARDIAC CATHETERIZATION 2023-07-04 22:36:00 Albaeni, A [facility] CARDIAC CATHETERIZATION 2023-07-04 22:36:00 Albaeni, A [facility] CARDIAC CATHETERIZATION 2023-07-04 22:36:00 Albaeni, A [facility] CARDIAC CATHETERIZATION 2023-07-04 22:36:00 Albaeni, A [facility] CARDIAC CATHETERIZATION 2023-07-04 22:36:00 Albaeni, A [facility] CARDIAC CATHETERIZATION 2023-07-04 22:36:00 Albaeni, A [facility] CARDIAC CATHETERIZATION 2023-07-04 22:36:00 Albaeni, A [facility] CARDIAC CATHETERIZATION 2023-07-04 22:36:00 Albaeni, A [facility] CARDIAC CATHETERIZATION 2023-07-04 22:36:00 Albaeni, A [facility] CARDIAC CATHETERIZATION 2023-07-04 22:36:00 Albaeni, A [facility] CARDIAC CATHETERIZATION 2023-07-04 22:36:00 Albaeni, A [facility] CARDIAC CATHETERIZATION 2023-07-04 22:36:00 Albaeni, A [facility] MAGNESIUM 2023-07-04 16:24:00 [facility] BASIC METABOLIC PANEL (NA, K, CL, CO2, GLUCOSE, BUN, CREATININE, CA) 2023-07-04 16:24:00 [facility] MAGNESIUM 2023-07-04 16:24:00 [facility] BASIC METABOLIC PANEL (NA, K, CL, CO2, GLUCOSE, BUN, CREATININE, CA) 2023-07-04 16:24:00 [facility] MAGNESIUM 2023-07-04 16:24:00 [facility] BASIC METABOLIC PANEL (NA, K, CL, CO2, GLUCOSE, BUN, CREATININE, CA) 2023-07-04 16:24:00 [facility] MAGNESIUM 2023-07-04 16:24:00 CatalinoRy oliveira [facility] BASIC METABOLIC PANEL (NA, K, CL, CO2, GLUCOSE, BUN, CREATININE, CA) 2023-07-04 16:24:00 [facility] TH[facility] [place] 2023-07-04 15:46:00 Palomares, [facility] ACTIVATED PARTIAL THRMPLAS [place] 2023-07-04 15:46:00 Palomares, [facility] ACTIVATED PARTIAL THRMPLAS [place] 2023-07-04 15:46:00 Palomares, [facility] ACTIVATED PARTIAL THRMPLAS [place] 2023-07-04 15:46:00 Palomares, [facility] MAGNESIUM 2023-07-04 11:34:00 SidCapo rose [facility] BASIC METABOLIC PANEL (NA, K, CL, CO2, GLUCOSE, BUN, CREATININE, CA) 2023-07-04 11:34:00 Capo Baker [facility] CBC WITH DIFF 2023-07-04 11:34:00 Capo Baker [facility] MAGNESIUM 2023-07-04 11:34:00 SidCapo rose [facility] BASIC METABOLIC PANEL (NA, K, CL, CO2, GLUCOSE, BUN, CREATININE, CA) 2023-07-04 11:34:00 Capo Baker [facility] CBC WITH DIFF 2023-07-04 11:34:00 Capo Baker [facility] MAGNESIUM 2023-07-04 11:34:00 SidCapo rose [facility] BASIC METABOLIC PANEL (NA, K, CL, CO2, GLUCOSE, BUN, CREATININE, CA) 2023-07-04 11:34:00 Capo Baker [facility] CBC WITH DIFF 2023-07-04 11:34:00 SidCapo rose [facility] MAGNESIUM 2023-07-04 11:34:00 SidiqCapo Uni [facility] BASIC METABOLIC PANEL (NA, K, CL, CO2, GLUCOSE, BUN, CREATININE, CA) 2023-07-04 11:34:00 SidCapo rose [facility] CBC WITH DIFF 2023-07-04 11:34:00 Capo Baker [facility] ACTIVATED PARTIAL THRMPLAS [place] 2023-07-04 03:21:00 Mukesh [facility] ACTIVATED PARTIAL THRMPLAS [place] 2023-07-04 03:21:00 Mukesh [facility] ACTIVATED PARTIAL THRMPLAS [place] 2023-07-04 03:21:00 Albyasmani [facility] ACTIVATED PARTIAL THRMPLAS [place] 2023-07-04 03:21:00 Mukesh [facility] MAGNESIUM 2023-07-03 19:56:00 Sidiq, Capo Vines [facility] MAGNESIUM 2023-07-03 19:56:00 Sidiq, [place] [facility] MAGNESIUM 2023-07-03 19:56:00 Sidiq, [place] [facility] MAGNESIUM 2023-07-03 19:56:00 Sidiq, [place] [facility] ACTIVATED PARTIAL THRMPLAS [place] 2023-07-03 16:57:00 Palomares, [facility] ACTIVATED PARTIAL THRMPLAS [place] 2023-07-03 16:57:00 Palomares, [facility] ACTIVATED PARTIAL THRMPLAS [place] 2023-07-03 16:57:00 Palomares, [facility] ACTIVATED PARTIAL THRMPLAS [place] 2023-07-03 16:57:00 Palomares, [facility] TRANSTHORACIC ECHO (TTE) COMPLETE W/ CONTRAST 2023-07-03 16:56:57 Palomares, [facility] TRANSTHORACIC ECHO (TTE) COMPLETE W/ CONTRAST 2023-07-03 16:56:57 Palomares, [facility] TRANSTHORACIC ECHO (TTE) COMPLETE W/ CONTRAST 2023-07-03 16:56:57 Palomares, [facility] TRANSTHORACIC ECHO (TTE) COMPLETE W/ CONTRAST 2023-07-03 16:56:57 Palomares, [facility] HB ECG ROUTINE & RHYTHM STRIP 2023-07-03 14:35:42 Bossmanmilton Capo [facility] HB ECG ROUTINE & RHYTHM STRIP 2023-07-03 14:35:42 Bossmanmilton Capo [facility] HB ECG ROUTINE & RHYTHM STRIP 2023-07-03 14:35:42 [facility] HB ECG ROUTINE & RHYTHM STRIP 2023-07-03 14:35:42 [facility] HB ECG ROUTINE & RHYTHM STRIP 2023-07-03 12:51:42 Palomares, [facility] HB ECG ROUTINE & RHYTHM STRIP 2023-07-03 12:51:42 Palomares, [facility] HB ECG ROUTINE & RHYTHM STRIP 2023-07-03 12:51:42 Palomares, [facility] HB ECG ROUTINE & RHYTHM STRIP 2023-07-03 12:51:42 Padmaja Palomares [facility] TACROLIMUS, LEVEL 2023-07-03 12:32:00 PalomaresPadmaja andrade [facility] TACROLIMUS, LEVEL 2023-07-03 12:32:00 PalomaresPadmaja andrade [facility] TACROLIMUS, LEVEL 2023-07-03 12:32:00 Padmaja Palomares [facility] TACROLIMUS, LEVEL 2023-07-03 12:32:00 Padmaja Palomares [facility] LACTIC ACID WHOLE BLOOD 2023-07-03 09:37:00 [facility] 2023-07-03 09:37:00 [facility]ACT[facility] WHOLE BLOOD 2023-07-03 09:37:00 PalomaresQuang [facility] LACTIC ACID WHOLE BLOOD 2023-07-03 09:37:00 Quang [facility] ACTIV[facility] PARTIAL THRMPLAS [place] 2023-07-03 09:19:00 Sanket Blair [facility] ACTIVATED PARTIAL THRMPLAS [place] 2023-07-03 09:19:00 Sanket Blair [facility] ACTIVATED PARTIAL THRMPLAS [place] 2023-07-03 09:19:00 Sanket Blair [facility] ACTIVATED PARTIAL THRMPLAS [place] 2023-07-03 09:19:00 Sanket Blair [facility] PHOSPHORUS 2023-07-03 06:42:00 Palomares, [facility] MAGNESIUM 2023-07-03 06:42:00 Palomares, [facility] TROPONIN I 2023-07-03 06:42:00 Palomares, [facility] HEPATIC FUNCTION PANEL ([id number]) (ALB,T.PRO,BILI T,BU/BC,ALT,AST,ALK PHOS) 2023-07-03 06:42:00 Palomares, [facility] BASIC METABOLIC PANEL (NA, K, CL, CO2, GLUCOSE, BUN, CREATININE, CA) 2023-07-03 06:42:00 Palomares, [facility] LIPID PANEL ([id number])(TOTAL CHOLESTEROL, TRIGLYCERIDES, HDL) 2023-07-03 06:42:00 Palomares, [facility] IRON PANEL 2023-07-03 06:42:00 Palomares, [facility] CBC WITH DIFF 2023-07-03 06:42:00 Palomares, [facility] EXTRA TUBE SST 2023-07-03 06:42:00 Mukesh [facility] PHOSPHORUS 2023-07-03 06:42:00 Palomares [facility] MAGNESIUM 2023-07-03 06:42:00 Palomares, [facility] TROPONIN I 2023-07-03 06:42:00 Palomares, [facility] HEPATIC FUNCTION PANEL ([id number]) (ALB,T.PRO,BILI T,BU/BC,ALT,AST,ALK PHOS) 2023-07-03 06:42:00 Palomares, [facility] BASIC METABOLIC PANEL (NA, K, CL, CO2, GLUCOSE, BUN, CREATININE, CA) 2023-07-03 06:42:00 Palomares, [facility] LIPID PANEL ([id number])(TOTAL CHOLESTEROL, TRIGLYCERIDES, HDL) 2023-07-03 06:42:00 Palomares, [facility] IRON PANEL 2023-07-03 06:42:00 Palomares, [facility] CBC WITH DIFF 2023-07-03 06:42:00 Palomares, [facility] EXTRA TUBE SST 2023-07-03 06:42:00 [facility]23-07-03 06:42:00 Palomares, [facility] MAGNESIUM 2023-07-03 06:42:00 Palomares [facility] TROPONIN I 2023-07-03 06:42:00 Palomares, [facility] HEPATIC FUNCTION PANEL ([id number]) (ALB,T.PRO,BILI T,BU/BC,ALT,AST,ALK PHOS) 2023-07-03 06:42:00 Palomares [facility] BASIC METABOLIC PANEL (NA, K, CL, CO2, GLUCOSE, BUN, CREATININE, CA) 2023-07-03 06:42:00 Palomares, [facility] LIPID PANEL ([id number])(TOTAL CHOLESTEROL, TRIGLYCERIDES, HDL) 2023-07-03 06:42:00 Palomares [facility] IRON PANEL 2023-07-03 06:42:00 Palomares, [facility] CBC WITH DIFF 2023-07-03 06:42:00 Palomares, [facility] EXTRA TUBE SST 2023-07-03 06:42:00 Venita Mayorga [facility] PHOSPHORUS 2023-07-03 06:42:00 Palomares [facility] MAGNESIUM 2023-07-03 06:42:00 Palomares [facility] TROPONIN I 2023-07-03 06:42:00 Palomares, [facility] HEPATIC FUNCTION PANEL ([id number]) (ALB,T.PRO,BILI T,BU/BC,ALT,AST,ALK PHOS) 2023-07-03 06:42:00 Palomares, [facility] BASIC METABOLIC PANEL (NA, K, CL, CO2, GLUCOSE, BUN, CREATININE, CA) 2023-07-03 06:42:00 Palomares, [facility] LIPID PANEL ([id number])(TOTAL CHOLESTEROL, TRIGLYCERIDES, HDL) 2023-07-03 06:42:00 Jelani [facility] IRON PANEL 2023-07-03 06:42:00 Padmaja Palomares [facility] CBC WITH DIFF 2023-07-03 06:42:00 Padmaja Palomares [facility] EXTRA TUBE SST 2023-07-03 06:42:00 Venita Mayorga [facility] HB ECG ROUTINE & RHYTHM STRIP 2023-07-03 06:20:19 Jelani [facility] HB ECG ROUTINE & RHYTHM STRIP 2023-07-03 06:20:19 Jelani [facility] HB ECG ROUTINE & RHYTHM STRIP 2023-07-03 06:20:19 Jelani [facility] HB ECG ROUTINE & RHYTHM STRIP 2023-07-03 06:20:19 Jelani [facility] PROTHROMBIN TIME / INR 2023-07-03 02:49:00 Edna Blair [facility] ACTIVATED PARTIAL THRMPLAS [place] 2023-07-03 02:49:00 Sanket Blair [facility] PROTHROMBIN TIME / INR 2023-07-03 02:49:00 Edna Blair [facility] ACTIVATED PARTIAL THRMPLAS [place] 2023-07-03 02:49:00 Sanket Blair [facility] PROTHROMBIN TIME / INR 2023-07-03 02:49:00 Edna Blair [facility] ACTIVATED PARTIAL THRMPLAS [place] 2023-07-03 02:49:00 Sanket Blair [facility] PROTHROMBIN TIME / INR 2023-07-03 02:49:00 Edna Blair [facility] ACTIVATED PARTIAL THRMPLAS [place] 2023-07-03 02:49:00 Sanket Blair [facility] XR CHEST 1 VW 2023-07-03 02:09:38 Sanket Blair [facility] XR CHEST 1 VW 2023-07-03 02:09:38 Sanket Blair [facility] XR CHEST 1 VW 2023-07-03 02:09:38 Sanket Blair [facility] XR CHEST 1 VW 2023-07-03 02:09:38 Sanket Blair [facility] TROPONIN I 2023-07-03 01:55:00 Sanket Blair [facility] THYROID STIMULATING HORMONE 2023-07-03 01:55:00 Palomares, [facility] COMP. METABOLIC PANEL ([id number]) 2023-07-03 01:55:00 Sanket Blair [facility] CBC WITH DIFF 2023-07-03 01:55:00 Sanket Blair [facility] GLYCOSYLATED HEMOGLOBIN (A1C) 2023-07-03 01:55:00 Palomares [facility] N-TERMINAL PRO-BNP 2023-07-03 01:55:00 Sanket Blair [facility] TROPONIN I 2023-07-03 01:55:00 Sanket Blair [facility] THYROID STIMULATING HORMONE 2023-07-03 01:55:00 Palomares, [facility] COMP. METABOLIC PANEL ([id number]) 2023-07-03 01:55:00 Sanket Blair [facility] CBC WITH DIFF 2023-07-03 01:55:00 Sanket Blair [facility] GLYCOSYLATED HEMOGLOBIN (A1C) 2023-07-03 01:55:00 Palomares, [facility] N-TERMINAL PRO-BNP 2023-07-03 01:55:00 Sanket Blair [facility] TROPONIN I 2023-07-03 01:55:00 Sanket Blair [facility] THYROID STIMULATING HORMONE 2023-07-03 01:55:00 Palomares, [facility] COMP. METABOLIC PANEL ([id number]) 2023-07-03 01:55:00 Sanket Blair [facility] CBC WITH DIFF 2023-07-03 01:55:00 Sanket Blair [facility] GLYCOSYLATED HEMOGLOBIN (A1C) 2023-07-03 01:55:00 Palomares, [facility] N-TERMINAL PRO-BNP 2023-07-03 01:55:00 Sanket Blair [facility] TROPONIN I 2023-07-03 01:55:00 Sanket Blair [facility] THYROID STIMULATING HORMONE 2023-07-03 01:55:00 Jelani [facility] COMP. METABOLIC PANEL ([id number]) 2023-07-03 01:55:00 Sanket Blair [facility] CBC WITH DIFF 2023-07-03 01:55:00 Sanket Blair [facility] GLYCOSYLATED HEMOGLOBIN (A1C) 2023-07-03 01:55:00 Padmaja Palomares [facility] N-TERMINAL PRO-BNP 2023-07-03 01:55:00 Sanket Blair [facility] HB ECG ROUTINE & RHYTHM STRIP 2023-07-03 01:50:33 Sanket Blair [facility] HB ECG ROUTINE & RHYTHM STRIP 2023-07-03 01:50:33 Sanket Blair [facility] HB ECG ROUTINE & RHYTHM STRIP 2023-07-03 01:50:33 Sanket Blair [facility] HB ECG ROUTINE & RHYTHM STRIP 2023-07-03 01:50:33 Sanket Blair [facility] CONSENT/REFUSAL FOR DIAGNOSIS AND TREATMENT 2023-07-03 01:45:54 Doctor Unassigned, [place] [facility] CONSENT/REFUSAL FOR DIAGNOSIS AND TREATMENT 2023-07-03 01:45:54 Doctor Unassigned, [place] [facility] CONSENT/REFUSAL FOR DIAGNOSIS AND TREATMENT 2023-07-03 01:45:54 Doctor Unassigned, [place] [facility] CONSENT/REFUSAL FOR DIAGNOSIS AND TREATMENT 2023-07-03 01:45:54 Doctor Unassigned, [place] [facility] CRITICAL CARE 2023-07-03 01:45:00 Sanket Blair [facility] CRITICAL CARE 2023-07-03 01:45:00 Sanket Blair [facility] CRITICAL CARE 2023-07-03 01:45:00 Sanket Blair [facility] CRITICAL CARE 2023-07-03 01:45:00 Sanket Blair [facility] HOSPITAL ADMISSION 2023-07-02 06:01:00 Doctor Un assigned, [place] [facility] ADMISSION 2023-07-02 06:01:00 Doctor Un assigned, [place] [facility] ADMISSION 2023-07-02 06:01:00 Doctor Un assigned, [place] [facility] HOSPITAL ADMISSION 2023-07-02 06:01:00 Doctor Un assigned, [place] [facility] OCT, RETINA - OU - BOTH EYES 2023-06-20 17:41[facility] - OD - RIGHT EYE 2023-06-20 16:40:57 Diandra Tillman [facility] DISCLOSURE AND CONSENT, MEDICAL AND SURGICAL PROCEDURES 2023-06-20 06:01:00 Doctor Unassigned, [place] [facility] INSURANCE CORRESPONDENCE 2023-06-12 06:01:00 Doc tor Unassigned, [place] [facility] OCT, RETINA - OU - BOTH EYES 2023-05-26 19:26:59 [facility] FLUORES[facility]IN [facility]GIOGRAPHY - OU - BOTH EYES 2023-05-26 19:26:50 Diandra Tillman [facility] PHOSPHORUS 2023-05-23 17:47:00 Shanae [facility] MAGNESIUM 2023-05-23 17:47:00 Shanae [facility] BASIC METABOLIC PANEL (NA, K, CL, CO2, GLUCOSE, BUN, CREATININE, CA) 2023-05-23 17:47:00 Shanae [facility] CBC WITH DIFF 2023-05-23 17:47:00 Shanae [facility] URINALYSIS 2023-05-23 17:47:00 Shanae [facility] PROTEIN CREAT RATIO URINE RANDOM 2023-05-23 17:47:00 Shanae [facility] ASSIGNMENT OF BENEFITS 2023-05-23 15:08:56 Docto r Unassigned, [place] [facility] CONSENT/REFUSAL FOR DIAGNOSIS AND TREATMENT 2023-05-23 15:08:38 Doctor Unassigned, [place] [facility] INTRAVITREAL INJECTION, PHARMACOLOGIC AGENT - OD - RIGHT EYE 2023-05-02 16:46:19 [facility] - [facility] - BOTH EYES 2023-05-02 16:42:43 Diandra Tillman [facility] DISCLOSURE AND CONSENT, MEDICAL AND SURGICAL PROCEDURES 2023-05-02 06:01:00 Doctor Unassigned, [place] [facility] [facility] INTRAVITREAL INJECTION, PHARMACOLOGIC AGENT - OD - RIGHT EYE 2023-03-28 17:27:30 Diandra Tillman [facility] OCT, RETINA - OU - BOTH EYES 2023-03-28 17:24:22 Diandra Tillman [facility] DISCLOSURE AND CONSENT, MEDICAL AND SURGICAL PROCEDURES 2023-03-28 06:01:00 Doctor Unassigned, [place] [facility] INTRAVITREAL INJECTION, PHARMACOLOGIC AGENT - OD - RIGHT EYE 2023-02-24 16:26:54 Diandra Tillman [facility] OCT, RETINA - OU - BOTH EYES 2023-02-24 16:21:02 Diandra Tillman [facility] DISCLOSURE AND CONSENT, MEDICAL AND SURGICAL PROCEDURES 2023-02-24 05:01:00 Doctor Unassigned, [place] [facility] POCT MOLECULAR STREP 2023-02-19 15:09:00 Ferdinand Garcia [facility] FUNDUS PHOTOS - OU - BOTH EYES 2023-01-30 18:51:09 Layne [facility] OCT, RETINA - OU - BOTH EYES 2023-01-30 18:49:03 Diandra Tillman [facility] EXTERNAL PROVIDER RECORDS 2023-01-09 05:01:00 Do ctor Unassigned, [place] [facility] OCT, RETINA - OU - BOTH EYES 2023-01-06 16:42:22 Van Brown [facility] CT LUNG CANCER SCREENING 2022-10-28 19:38:11 Abner Rivera [facility] NOTICE OF PRIVACY PRACTICES 2022-10-28 19:20:29 Doctor Unassigned, [place] [facility] CONSENT/REFUSAL FOR DIAGNOSIS AND TREATMENT 2022-10-28 19:20:09 Doctor Unassigned, [place] [facility] ASSIGNMENT OF BENEFITS 2022-10-28 19:19:51 Docto r Unassigned, [place] [facility] PNEUMOCOCCAL 20 CONJUGATE (PREVNAR 20) VACCINE 2022-10-21 15:30:33 Abner Rivera [facility] EXTERNAL PROVIDER RECORDS 2022-10-18 05:01:00 Do ctor Unassigned, [place] [facility] PHOSPHORUS 2022-09-24 18:43:00 Behzad Jolly [facility] MAGNESIUM 2022-09-24 18:43:00 Shanae [facility] BASIC METABOLIC PANEL (NA, K, CL, CO2, GLUCOSE, BUN, CREATININE, CA) 2022-09-24 18:43:00 Shanae, [facility] TACROLIMUS, LEVEL 2022-09-24 18:43:00 Shanae [facility] CBC WITH DIFF 2022-09-24 18:43:00 Shanae [facility] BK VIRUS QUANT 2022-09-24 18:43:00 Naomie Mcclendon [facility] PATIENT FINANCIAL POLICY 2022-07-17 19:23:55 Doctor Unassigned, [place] [facility] EXTERNAL DD-CFDNA 2022-07-17 05:00:00 Pro Coburn [facility] PHOSPHORUS 2022-07-12 18:27:00 Shanae [facility] MAGNESIUM 2022-07-12 18:27:00 Shanae [facility] BASIC METABOLIC PANEL (NA, K, CL, CO2, GLUCOSE, BUN, CREATININE, CA) 2022-07-12 18:27:00 Shanae, [facility] TACROLIMUS, LEVEL 2022-07-12 18:27:00 Shanae [facility] CBC WITH DIFF 2022-07-12 18:27:00 Shanae [facility] URINALYSIS 2022-07-12 18:27:00 Shanae [facility] PROTEIN CREAT RATIO URINE RANDOM 2022-07-12 18:27:00 Shanae, [facility] PHOSPHORUS 2022-05-30 15:16:00 [facility] 2022-05-30 15:16:00 Shanae [facility] BASIC METABOLIC PANEL (NA, K, CL, CO2, GLUCOSE, BUN, CREATININE, CA) 2022-05-30 15:16:00 Shanae [facility] CBC WITH DIFF 2022-05-30 15:16:00 [facility] 2022-05-30 15:16:00 Shanae [facility] ASSIGNMENT OF BENEFITS 2022-05-07 15:21:38 Fab r Unassigned, [place] [facility] CT ABDOMEN PELVIS W WO CONTRAST 2022-04-15 15:44:59 Naomie Doty [facility] CONSENT/REFUSAL FOR DIAGNOSIS AND TREATMENT 2022-04-15 14:49:13 Doctor Unassigned, [place] [facility] ASSIGNMENT OF BENEFITS 2022-04-15 14:49:01 Docpierre r Unassigned, [place] [facility] URINALYSIS 2022-04-10 16:14:00 Shanae [facility] URINE CULTURE 2022-04-10 16:14:00 Naomie Mcclendon [facility] PROTEIN CREAT RATIO URINE RANDOM 2022-04-10 16:14:00 Shanae [facility] PHOSPHORUS 2022-04-10 16:01:00 Shanae [facility] MAGNESIUM 2022-04-10 16:01:00 Shanae [facility] BASIC METABOLIC PANEL (NA, K, CL, CO2, GLUCOSE, BUN, CREATININE, CA) 2022-04-10 16:01:00 Shanae [facility] TACROLIMUS, LEVEL 2022-04-10 16:01:00 Behzad Jolly [facility] CBC WITH DIFF 2022-04-10 16:01:00 Shanae [facility] BK VIRUS QUANT 2022-04-10 16:01:00 Naomie Mcclendon [facility] EXTERNAL DD-CFDNA 2022-04-10 06:00:00 Pro Coburn [facility] FLU VACC(),65+YR,0.5 ML,IM,ADJUVANTED,QUAD(FLUA D) 2022-04-01 17:57:26 Abner Rivera [facility] POCT GRP A STREP (MOLECULAR) 2022-03-12 22:00:00 Junior Garcia [facility] DERMATOPATHOLOGY TISSUE EXAM 2022-02-26 00:00:00 Kurtis Chase [facility] POCT HEMOGLOBIN A1C TEST 2022-02-04 17:03:00 Junior Garcia [facility] SARS-COV-2 COVID-19 VACCINE 18 YRS+, BIVALENT 0.5ML, IM (MODERNA BOOSTER) 2022-02-04 16:37:53 Doctor Unassigned, [place] [facility] URINALYSIS 2022-01-24 19:12:00 Behzad Jolly [facility] CBC WITH DIFF 2022-01-24 19:01:00 Behzad Jolly [facility] PHOSPHORUS 2022-01-24 17:20:00 [facility] 2022-01-24 17:20:00 Shanae [facility] COMP. METABOLIC PANEL (77377) 2022-01-24 17:20:00 Abner Rivera [facility] HEPATITIS C VIRUS (HCV) BY QUANTITATIVE NAAT 2022-01-24 17:20:00 Abner Rivera [facility] TACROLIMUS, LEVEL 2022-01-24 17:19:00 [facility]AT [facility]IO URINE RANDOM 2022-01-24 17:15:00 Behzad Jolly [facility] TOTAL PROTEIN, URINE RANDOM 2022-01-24 17:15:00 Behzad Jolly [facility] MEDICATION CORRESPONDENCE 2022-01-14 05:01:00 Do ctor Unassigned, [place] [facility] HCV ANTIBODY 2021-12-20 15:58:00 Abner Rivera [facility] US RETROPERITONEAL COMPLETE 2021-07-02 19:57:40 Brenda Raphael [facility] COLONOSCOPY (ENDO) 2020-11-07 13:23:28 Vashti Logan [facility] OCCULT (GUAIAC) BLOOD 2016-12-29 03:15:00 Alicia Smiley [facility] Basic Metabolic Panel Memori al Stewart Epic Magnesium Level [facility] Phosphorus Level [facility] Complete Blood Count w/Diff and Platelet [facility] Blood culture, peripheral #2 [facility] Plan of Care Planned Activity Planned Date Details Comments Source Encounters Start Date/Time End Date/Time Encounter Type Admission Type Attending Clinicians Care Facility Care Department Encounter ID Source 2024-11-09 11:07:00 Inpatient Emergency CALOSSARA [facility] Cardiology [id number] [facility] 2021-02-26 05:42:45 Outpatient JASMYNE GOFF [email or web address] [place] [id number] [facility] 2025-02-28 10:00:00 2025-02-28 10:00:00 Outpatient ASHWIN ECHEVARRIA [facility] [id number] [facility] 2025-02-02 08:40:00 2025-02-02 08:40:00 Outpatient ABNER CARDONA [facility] [id number] [facility] 2025-01-18 00:00:00 2025-01-18 16:09:15 Telephone Parminder Rueda [facility] [[email or web address] .0.114 350.1.13.10 4.2.7.2.686 [id number] [facility] 2025-01-18 10:30:00 2025-01-18 12:13:50 Office Visit R Transplant, Kidney Surgery Parminder Pollock [facility] [[email or web address] ..114 350.1.13.10 4.2.7.2.686 [id number] [facility] 2025-01-11 00:00:00 2025-01-11 16:35:30 Telephone Soha Angelessarah [facility] 1.2840.114 350.1.13.10 4.2.7.2.686 [id number] [facility] 2025-01-10 00:00:00 2025-01-11 13:33:17 Transition of Care Alexandrea Drew Christine A SHEARN MOODY LALY 1.0.114 350.1.13.10 4.2.7.2.686 [id number] [facility] 2025-01-11 10:30:00 2025-01-11 11:00:00 Office Visit R [facility] 1..114 350.1.13.10 4.2.7.2.686 [id number] [facility] 2025-01-11 10:00:00 2025-01-11 10:30:00 Case Management R Worker, Transplant Social Mohit [facility] 1..114 350.1.13.10 4.2.7.2.686 [id number] [facility] 2025-01-11 10:15:00 2025-01-11 10:15:00 Outpatient R MOHIT [facility] [id number] [facility] 2025-01-10 00:00:00 2025-01-10 16:27:36 Telephone Abner Rivera [facility] 1.0.114 350.1.13.10 4.2.7.2.686 [id number] [facility] 2025-01-10 00:00:00 2025-01-10 15:09:[address] do [facility] 1.2.840.114 350.1.13.10 4.2.7.2.686 [id number] [facility] 2024-12-23 02:55:00 2025-01-07 17:34:00 Hospital Encounter Barbara POWERS, PADMAJA POWERS, PADMAJA [facility] [[email or web address] STX [id number] [facility] 2024-12-24 00:00:00 2024-12-24 07:55:04 Refill Naomie Beck do 1.2.840.1 16331.1.1 3.104.2.7 .3.791338 .8 [id number] [facility] 2024-12-23 00:00:00 2024-12-23 00:00:00 Travel 1.2.840.1 43912.1.1 3.104.2.7 .3.126525 .8 1.2.840.114 350.1.13.10 4.2.7.3.698 084.8 [id number] [facility] 2024-12-21 13:00:00 2024-12-21 13:00:00 Outpatient R [facility] [id number] [facility] 2024-12-09 00:00:00 2024-12-09 16:30:05 Case Management Saúl Monreal 1.2.840.1 27707.1.1 3.104.2.7 .3.706072 .8 [id number] [facility] 2024-12-07 13:30:00 2024-12-07 13:45:00 Office Visit Parminder Henriquez 1.2.840.1 99546.1.1 3.104.2.7 .3.699633 .8 [id number] [facility] 2024-12-07 10:30:00 2024-12-07 11:00:00 Office Visit Matt Parminder Pollock FKun 1.2.840.1 80674.1.1 3.104.2.7 .3.677407 .8 [id number] [facility] 2024-12-07 00:00:00 2024-12-07 00:00:00 Travel 1.2.840.1 70085.1.1 3.104.2.7 .3.987404 .8 1.2.840.114 350.1.13.10 4.2.7.3.698 084.8 [id number] [facility] 2024-11-23 00:00:00 2024-11-24 07:52:38 Telephone Abner Rivera 1.2.840.1 79101.1.1 3.104.2.7 .3.517982 .8 [id number] [facility] 2024-11-23 00:00:00 2024-11-23 14:28:51 Telephone Parminder Rueda 1.2.840.1 39402.1.1 3.104.2.7 .3.130415 .8 [id number] [facility] 2024-11-23 09:20:00 2024-11-23 09:20:00 Outpatient TOMEKA TERRELL [facility] [id number] [facility] 2024-11-23 00:00:00 2024-11-23 00:00:00 Scanned Documents Doctor Unassigned, [place] 1.2.840.1 43723.1.1 3.104.2.7 .3.315081 .8 [id number] [facility] 2024-11-09 11:07:00 2024-11-19 17:14:00 Inpatient Emergency [facility] Cardiology [id number] [facility] 2024-11-09 11:07:00 2024-11-19 17:14:00 Hospital Encounter Randolph Katz Alexander J Dhoble, Sara [facility] 1.2.840.114 350.1.13.70 8.2.7.2.686 [id number] Rakel cooper [facility] 2024-11-17 00:00:00 2024-11-19 11:34:39 Telephone Transplant, Kidney Medicine 1.2.840.1 28071.1.1 3.104.2.7 .3.403549 .8 [id number] [facility] 2024-11-19 00:00:00 2024-11-19 08:35:42 Telephone Parminder Rueda 1.2.840.1 17268.1.1 3.104.2.7 .3.191609 .8 [id number] [facility] 2024-11-09 00:00:00 2024-11-09 10:55:13 Telephone Parminder Pollock FKun 1.2.840.1 56584.1.1 3.104.2.7 .3.134649 .8 [id number] [facility] 2024-11-08 08:15:00 2024-11-08 08:53:15 Bending Roll Hand Visit Abner Cardona 1.2.840.1 06445.1.1 3.104.2.7 .3.098529 .8 [id number] [facility] 2024-11-08 00:00:00 2024-11-08 00:00:00 Travel 1.2.840.1 12730.1.1 3.104.2.7 .3.582073 .8 1.2.840.114 350.1.13.10 4.2.7.3.698 084.8 [id number] [facility] 2024-10-28 13:00:00 2024-10-28 13:00:00 Outpatient R [facility] [id number] [facility] 2024-10-27 00:00:00 2024-10-27 07:29:46 RefBehzad Phillips 1.2.840.1 34665.1.1 3.104.2.7 .3.802332 .8 [id number] [facility] 2024-10-21 00:00:00 2024-10-22 19:01:05 Telephone Mukesh Miles 1.2.840.1 77374.1.1 3.104.2.7 .3.064583 .8 [id number] [facility] 2024-10-21 13:00:00 2024-10-21 14:16:48 Office Visit Mukesh Nolan 1.2.840.1 71917.1.1 3.104.2.7 .3.657854 .8 [id number] [facility] 2024-10-21 13:00:00 2024-10-21 13:00:00 Outpatient R [facility] [id number] [facility] 2024-10-21 00:00:00 2024-10-21 00:00:00 Travel 1.2.840.1 82218.1.1 3.104.2.7 .3.673336 .8 1.2.840.114 350.1.13.10 4.2.7.3.698 084.8 [id number] [facility] 2024-10-20 00:00:00 2024-10-20 10:05:17 Case Management Parminder Rueda 1.2.840.1 51787.1.1 3.104.2.7 .3.433562 .8 [id number] [facility] 2024-10-15 08:00:00 2024-10-15 08:31:29 Bending Roll Hand Visit Abner Cardona 1.2.840.1 91478.1.1 3.104.2.7 .3.345192 .8 [id number] [facility] 2024-10-15 08:00:00 2024-10-15 08:00:00 Outpatient R [facility] [id number] [facility] 2024-10-15 00:00:00 2024-10-15 00:00:00 Travel 1.2.840.1 16418.1.1 3.104.2.7 .3.422486 .8 1.2.840.114 350.1.13.10 4.2.7.3.698 084.8 [id number] [facility] 2024-10-02 00:00:00 2024-10-04 08:59:47 Refill Naomie Beck do 1.2.840.1 24512.1.1 3.104.2.7 .3.801714 .8 [id number] [facility] 2024-09-28 00:00:00 2024-09-28 10:50:08 Refill Parminder Rueda 1.2.840.1 55690.1.1 3.104.2.7 .3.101412 .8 [id number] [facility] 2024-08-31 00:00:00 2024-08-31 09:19:44 Specialty Pharmacy Rakel Masterson Rakel [facility] 1.0.114 350.1.13.10 4.2.7.2.686 [id number] [facility] 2024-08-30 09:30:00 2024-08-30 09:47:31 Outpatient R ASHWIN WEIR [facility] [id number] [facility] 2024-08-30 09:30:00 2024-08-30 09:47:31 Office Visit Ashwin Weir [facility] 1.0.114 350.1.13.10 4.2.7.2.686 [id number] [facility] 2024-08-19 00:00:00 2024-08-19 09:55:55 Refill Abner Rivera [facility] 1.2.840.114 350.1.13.10 4.2.7.2.686 [id number] [facility] 2024-08-17 00:00:00 2024-08-17 15:40:58 Letter (Out) NicoleAbner [facility] 1.2.840.114 350.1.13.10 4.2.7.2.686 [id number] [facility] 2024-08-03 16:00:00 2024-08-03 16:00:00 Outpatient R ABNER RIVERA [facility] [id number] [facility] 2024-08-03 16:00:00 2024-08-03 16:00:00 Bending Roll Hand Visit 2, Ad[facility] HermilaranjitAbner martínez 2, Adc Lab [facility] 1.2.840.114 350.1.13.10 4.2.7.2.686 [id number] [facility] 2024-08-03 14:40:00 2024-08-03 15:01:11 Office Visit Abner Rivera [facility] 1.2.840.114 350.1.13.10 4.2.7.2.686 [id number] [facility] 2024-07-27 08:15:00 2024-07-27 08:15:00 Outpatient R [facility] [id number] [facility] 2024-07-27 08:15:00 2024-07-27 08:15:00 Outpatient R [facility] [id number] [facility] 2024-07-22 00:00:00 2024-07-22 10:01:27 Specialty Pharmacy Rakel Masterson Monique [facility] [[email or web address] [place] 1.2.840.114 350.1.13.10 4.2.7.2.686 [id number] [facility] 2024-07-20 00:00:00 2024-07-20 09:20:16 Refill Naomie Beck do [facility] [[email or web address] 1.2.840.114 350.1.13.10 4.2.7.2.686 [id number] [facility] 2024-07-01 00:00:00 2024-07-01 10:57:09 Specialty Pharmacy Sue Little Emily C [facility] [[email or web address] [place] 1.2.840.114 350.1.13.10 4.2.7.2.686 [id number] [facility] 2024-06-25 00:00:00 2024-06-30 10:50:39 [facility]ill [facility] 1.2.840.114 350.1.13.10 4.2.7.2.686 [id number] [facility] 2024-06-25 00:00:00 2024-06-25 10:50:55 Refill Naomie Beck do [facility] [[email or web address]] [facility] 1.2.840.114 350.1.13.10 4.2.7.2.686 [id number] [facility] 2024-06-24 00:00:00 2024-06-24 11:14:14 Refill Parminder Rueda [facility] [[email or web address] 1.2.840.114 350.1.13.10 4.2.7.2.686 [id number] [facility] 2024-06-14 00:00:00 2024-06-14 09:52:04 Telephone HermilapaulaAbner monson [facility] 1.2.840.114 350.1.13.10 4.2.7.2.686 [id number] [facility] 2024-06-09 00:00:00 2024-06-14 08:38:15 Telephone Naomie Beck do [facility] [[email or web address] 1.2.840.114 350.1.13.10 4.2.7.2.686 [id number] [facility] 2020-05-01 00:00:00 2024-06-12 02:58:10 Orders Only Georgia Miller Chelsea N [facility] [[email or web address] 1.2.840.114 350.1.13.10 4.2.7.2.686 [id number] [facility] 2024-06-02 00:00:00 2024-06-02 14:17:38 Specialty Pharmacy Padmaja Mcmahan Michael A [facility] [[email or web address] [place] 1.2.840.114 350.1.13.10 4.2.7.2.686 [id number] [facility] 2024-05-31 00:00:00 2024-06-02 08:56:23 Telephone Abner Rivera [facility] 1.2.840.114 350.1.13.10 4.2.7.2.686 [id number] [facility] 2024-05-26 00:00:00 2024-05-26 14:20:22 Refill MarquitaAbner monson [facility] 1.2.840.114 350.1.13.10 4.2.7.2.686 [id number] [facility] 2024-05-26 09:40:00 2024-05-26 09:47:13 [facility] [id number] 2024-05-26 09:40:00 2024-05-26 09:47:13 [facility] 1.2.840.114 350.1.13.10 4.2.7.2.686 [id number] [facility] 2024-05-24 15:40:00 2024-05-24 15:40:00 Outpatient R OBI-KHALIDA , DHIRAJ OBI-KHALIDA , DHIRAJ [facility] [id number] [facility] 2024-05-24 15:40:00 2024-05-24 15:40:00 Outpatient R OBI-KHALIDA , DHIRAJ OBI-KHALIDA , DHIRAJ [facility] [id number] [facility] 2024-05-24 00:00:00 2024-05-24 11:14:23 Refill Abner Rivera [facility] 1.2.840.114 350.1.13.10 4.2.7.2.686 [id number] [id number] [facility] 2024-05-22 00:00:00 2024-05-24 09:16:52 Refill Junior Garcia [facility] 1.2.840.114 350.1.13.10 4.2.7.2.686 [id number] [id number] [facility] 2024-05-20 00:00:00 2024-05-20 09:16:47 Telephone Abner Rivera [facility] 1.2.840.114 350.1.13.10 4.2.7.2.686 [id number] [id number] [facility] 2024-05-20 00:00:00 2024-05-20 09:12:26 Telephone TayajagrutiAbner monson [facility] 1.2.840.114 350.1.13.10 4.2.7.2.686 [id number] 044 [id number] [facility] 2024-05-18 00:00:00 2024-05-18 13:10:28 [facility]ill Abner [facility] 1.2.840.114 350.1.13.10 4.2.7.2.686 [id number] [id number] [facility] 2024-05-18 10:30:00 2024-05-18 10:30:00 Outpatient R JUNIOR GARCIA OGECHUKWU [facility] [id number] [facility] 2024-05-12 00:00:00 2024-05-12 08:17:17 Telephone HermilaranjittanyaAbner [facility] 1.2.840.114 350.1.13.10 4.2.7.2.686 [id number] [facility] 2024-05-12 00:00:00 2024-05-12 00:00:00 Outpatient R ABNER RIVERA [facility] [id number] [facility] 2024-05-12 00:00:00 2024-05-12 00:00:00 Outpatient R ABNER RIVERA [facility] [id number] [facility] 2024-05-06 00:00:00 2024-05-06 00:00:00 Outpatient R ABNER RIVERA [facility] [id number] [facility] 2024-05-06 00:00:00 2024-05-06 00:00:00 Outpatient R ABNER RIVERA [facility] [id number] [facility] 2024-04-29 08:40:00 2024-04-29 09:20:00 Office Visit HermilaranjitjagrutiAbner monson [facility] 1.2.840.114 350.1.13.10 4.2.7.2.686 [id number] [facility] 2024-04-29 08:40:00 2024-04-29 08:40:00 Outpatient R ABNER RIVERA [facility] [id number] [facility] 2024-04-26 00:00:00 2024-04-26 14:43:48 [facility]ty Pharmacy Shyann Fitch [facility] 1.2.840.114 350.1.13.10 4.2.7.2.686 [id number] [id number] [facility] 2024-04-23 08:30:00 2024-04-23 08:23:03 Outpatient ABNER CARDONA [facility] [id number] [facility] 2024-04-23 08:30:00 2024-04-23 08:23:03 Bending Roll Hand Visit Matt RIVERA ABNER [facility] 1.2.840.114 350.1.13.10 4.2.7.2.686 [id number] [facility] 2024-04-19 00:00:00 2024-04-19 15:26:33 Refill Abner Rivera [facility] 1.2.840.114 350.1.13.10 4.2.7.2.686 [id number] [id number] [facility] 2024-04-12 14:00:00 2024-04-12 14:09:55 Outpatient BEHZAD MATOS [facility] [id number] [facility] 2024-04-12 14:00:00 2024-04-12 14:09:55 [facility] 1.2.840.114 350.1.13.10 4.2.7.2.686 [id number] [facility] 2024-04-12 12:45:00 2024-04-12 13:00:00 Bending Roll Hand Visit [facility] Will dunbar, Naomie Andrade [facility] 1.2.840.114 350.1.13.10 4.2.7.2.686 [id number] [facility] 2024-04-12 00:00:00 2024-04-12 10:15:06 Specialty Pharmacy Shyann Fitch Shatara E [facility] [[email or web address] [place] 1.2.840.114 350.1.13.10 4.2.7.2.686 [id number] 016 [id number] [facility] 2024-03-23 00:00:00 2024-03-23 16:05:14 Specialty Pharmacy Sandy Perry Tamara L [facility] [[email or web address] [place] 1.2.840.114 350.1.13.10 4.2.7.2.686 [id number] [id number] [facility] 2024-03-23 00:00:00 2024-03-23 14:40:26 [facility] 1.2.840.114 350.1.13.10 4.2.7.2.686 [id number] 028 [id number] [facility] 2024-03-03 00:00:00 2024-03-23 09:23:19 [facility] 1.2.840.114 350.1.13.10 4.2.7.2.686 [id number] 028 [id number] [facility] 2024-03-19 00:00:00 2024-03-19 16:37:24 Refill HermilaranjitAbner martínez [facility] 1.2.840.114 350.1.13.10 4.2.7.2.686 [id number] [id number] [facility] 2024-02-13 00:00:00 2024-02-15 14:34:50 Refill HermilapaulaAbner monson [facility] 1.2840.114 350.1.13.10 4.2.7.2.686 [id number] 044 [id number] [facility] 2024-02-13 00:00:00 2024-02-13 10:01:52 Specialty Pharmacy Shyann Fitch Shatara E [facility] [place] 1.2840.114 350.1.13.10 4.2.7.2.686 [id number] [id number] [facility] 2024-02-11 16:30:00 2024-02-11 16:30:00 Outpatient R FERMIN, STRAHIL CORDELLNASOV, STRAMEL [facility] [id number] [facility] 2024-02-11 16:30:00 2024-02-11 16:30:00 Outpatient R ATANASOV, STRAHIL ATANASOV, STRAHIL [facility] [id number] [facility] 2024-01-23 00:00:00 2024-01-23 09:16:42 Refill Junior Garcia [facility] 1.2840.114 350.1.13.10 4.2.7.2.686 [id number] 044 [id number] [facility] 2024-01-22 00:00:00 2024-01-22 13:24:58 Refill HermilaranjitAbner martínez [facility] 1.2840.114 350.1.13.10 4.2.7.2.686 [id number] 044 [id number] [facility] 2024-01-21 08:40:00 2024-01-21 08:59:05 Outpatient R ABNER RIVERA [facility] [id number] [facility] 2024-01-21 08:40:00 2024-01-21 08:59:05 Office Visit Abner Rivera [facility] 1.2.840.114 350.1.13.10 4.2.7.2.686 [id number] 044 [id number] [facility] 2024-01-21 08:00:00 2024-01-21 08:57:10 Office Visit Abner Rivera [facility] 1.2.840.114 350.1.13.10 4.2.7.2.686 [id number] [facility] 2024-01-13 00:00:00 2024-01-13 11:11:55 Pre Visit Outreach Mac Lisette A Mac, July A [facility] [[email or web address] [place] 1.2.840.114 350.1.13.10 4.2.7.2.686 [id number] [facility] 2024-01-13 10:00:00 2024-01-13 10:03:55 Outpatient R SOHATOMEKA [facility] [id number] [facility] 2024-01-13 10:00:00 2024-01-13 10:03:55 [facility] 1.2.840.114 350.1.13.10 4.2.7.2.686 [id number] 059 [id number] [facility] 2024-01-09 00:00:00 2024-01-09 11:21:46 Refill Abner Rivera [facility] 1.2.840.114 350.1.13.10 4.2.7.2.686 [id number] 044 [id number] [facility] 2024-01-09 00:00:00 2024-01-09 10:06:04 Abstract Behzad Jolly [facility] 1.840.114 350.1.13.10 4.2.7.2.686 [id number] [facility] 2024-01-05 00:00:00 2024-01-05 16:21:06 Specialty Pharmacy Marisela Van Sudha [facility] [[email or web address] [place] 1.840.114 350.1.13.10 4.2.7.2.686 [id number] [id number] [facility] 2024-01-05 16:00:00 2024-01-05 16:15:00 Bending Roll Hand Visit Vtc-Lab Cinthia Jollym Vt-[facility]AY [facility] 1.0.114 350.1.13.10 4.2.7.2.686 [id number] [facility] 2024-01-05 14:30:00 2024-01-05 15:50:59 Outpatient R BEHZAD JOLLY [facility] [id number] [facility] 2024-01-05 14:30:00 2024-01-05 15:50:59 [facility] 1.0.114 350.1.13.10 4.2.7.2.686 [id number] [facility] 2024-01-02 00:00:00 2024-01-02 12:11:51 Pre Visit Outreach Lisette Watts April A [facility] [[email or web address] [place] 1.2840.114 350.1.13.10 4.2.7.2.686 [id number] [id number] [facility] 2023-12-05 00:00:00 2023-12-05 09:42:34 Ana Junior Garcia [facility] 1.2.840.114 350.1.13.10 4.2.7.2.686 [id number] 044 [id number] [facility] 2023-12-03 00:00:00 2023-12-03 18:16:49 [facility] 1.2.840.114 350.1.13.10 4.2.7.2.686 [id number] 059 [id number] [facility] 2023-12-02 14:00:00 2023-12-02 14:00:00 [facility] [id number] [facility] 2023-11-27 12:15:00 2023-11-27 12:15:00 Outpatient KATARZYNA VIDAL [facility] [id number] [facility] 2023-11-27 12:15:00 2023-11-27 12:15:00 Bending Roll Hand Visit Matt [facility] 1.84.114 350.1.13.10 4.2.7.2.686 [id number] [facility] 2023-11-27 00:00:00 2023-11-27 12:09:01 Letter (Out) Doctor Unassigned, De [place] [facility] [[email or web address] [place] 1.284.114 350.1.13.10 4.2.7.2.686 [id number] 044 [id number] [facility] 2023-11-21 13:00:00 2023-11-21 13:00:00 [facility] [id number] 2023-11-21 13:00:00 2023-11-21 13:00:00 [facility] [id number] [facility] 2023-11-20 00:00:00 2023-11-21 08:54:12 [facility] 1.840.114 350.1.13.10 4.2.7.2.686 [id number] [facility] 2023-11-11 00:00:00 2023-11-17 16:20:39 Telephone Naomie Beck [facility] 1..114 350.1.13.10 4.2.7.2.686 [id number] [facility] 2023-11-14 00:00:00 2023-11-14 14:56:02 Letter (Out) Nicolle Phillips [facility] 1.840.114 350.1.13.10 4.2.7.2.686 [id number] 044 [id number] [facility] 2023-11-12 15:20:00 2023-11-12 15:49:17 [facility] [id number] [facility] 2023-11-12 15:20:00 2023-11-12 15:49:17 Office Visit Soha [facility] 1.840.114 350.1.13.10 4.2.7.2.686 [id number] 059 [id number] [facility] 2023-11-06 09:40:00 2023-11-06 09:40:00 [facility] [id number] [facility] 2023-10-28 00:00:00 2023-10-28 16:26:36 Telephone Abner Rivera [facility] 1.840.114 350.1.13.10 4.2.7.2.686 [id number] 044 [id number] [facility] 2023-10-24 00:00:00 2023-10-27 15:59:46 [facility] 1.2.840.114 350.1.13.10 4.2.7.2.686 [id number] [id number] [facility] 2023-10-23 10:45:00 2023-10-23 11:00:00 Bending Roll Hand Visit 2, Adc Lab Soha [facility] 1.2840.114 350.1.13.10 4.2.7.2.686 [id number] [facility] 2023-10-23 10:45:00 2023-10-23 10:52:43 Outpatient R SOHA [facility] [id number] [facility] 2023-10-16 15:20:00 2023-10-16 15:29:53 Outpatient R SOHA [facility] [id number] [facility] 2023-10-16 15:20:00 2023-10-16 15:29:53 Office Visit Soha [facility] 1.2840.114 350.1.13.10 4.2.7.2.686 [id number] [facility] 2023-10-16 00:00:00 2023-10-16 15:23:52 Telephone Behzad Jolly [email or web address]] MULTISPEC [facility]TY [facility] 1.0.114 350.1.13.10 4.2.7.2.686 [id number] [facility] 2023-10-14 00:00:00 2023-10-14 15:49:27 Telephone Rose Leach [facility] ([facility] 1.2840.114 350.1.13.10 4.2.7.2.686 [id number] [id number] [facility] 2023-10-07 10:30:00 2023-10-07 10:37:23 Bending Roll Hand Visit 2, [facility] 1.2840.114 350.1.13.10 4.2.7.2.686 [id number] [facility] 2023-10-07 10:00:00 2023-10-07 10:12:48 Outpatient R [facility] [id number] [facility] 2023-10-07 10:00:00 2023-10-07 10:12:48 Office Visit Phil Phillipsssica [facility] 1.20.114 350.1.13.10 4.2.7.2.686 [id number] 044 [id number] [facility] 2023-09-29 00:00:00 2023-09-29 15:01:08 Case Management Jack Grady [place] 1.0.114 350.1.13.10 4.2.7.2.686 [id number] [facility] 2023-09-21 00:00:00 2023-09-23 10:36:[address] [facility] 1..114 350.1.13.10 4.2.7.2.686 [id number] [facility] 2023-09-17 15:30:00 2023-09-17 15:30:00 Outpatient R VENITA MAYORGA [facility] [id number] [facility] 2023-09-16 00:00:00 2023-09-17 09:02:54 Telephone Marisela Van [facility] ([facility]) 1..114 350.1.13.10 4.2.7.2.686 [id number] 016 [id number] [facility] 2023-09-09 00:00:00 2023-09-13 10:23:56 Telephone Abner Rivera [email or web address] 1.2.840.114 350.1.13.10 4.2.7.2.686 [id number] 044 [id number] [facility] 2023-09-12 14:30:00 2023-09-12 14:30:00 Outpatient R MUKESH [facility] [id number] [facility] 2023-09-08 00:00:00 2023-09-10 11:02:43 Telephone Mukesh [facility] 1.2840.114 350.1.13.10 4.2.7.2.686 [id number] [id number] [facility] 2023-09-08 00:00:00 2023-09-09 14:11:04 Telephone Jt Alejandro [facility] 1.2840.114 350.1.13.10 4.2.7.2.686 [id number] [facility] 2023-09-01 00:00:00 2023-09-02 09:09:12 Telephone Marisela Van [facility] ([facility]) 1.2840.114 350.1.13.10 4.2.7.2.686 [id number] 016 [id number] [facility] 2023-08-28 00:00:00 2023-08-28 00:00:00 Refill Junior Garcia [facility] 1.2840.114 350.1.13.10 4.2.7.2.686 [id number] 044 [id number] [facility] 2023-08-28 00:00:00 2023-08-28 00:00:00 Refill Behzad Jolly [facility] MULT[facility]PEC [facility] .114 350.1.13.10 4.2.7.2.686 [id number] [facility] 2023-08-28 00:00:00 2023-08-28 00:00:00 [facility] 1.114 350.1.13.10 4.2.7.2.686 [id number] 044 [id number] [facility] 2023-08-21 10:30:00 2023-08-21 11:24:32 Outpatient R ASHWIN WEIR [facility] [id number] [facility] 2023-08-21 10:30:00 2023-08-21 11:24:32 Office [facility] 1.114 350.1.13.10 4.2.7.2.686 [id number] [facility] 2023-08-07 13:45:00 2023-08-07 13:45:00 Outpatient R DIANDRA TILLMAN REN[facility]A [facility] [id number] [facility] 2023-07-31 14:15:00 2023-07-31 14:30:00 Office Visit Jt Alejandro [facility] .114 350.1.13.10 4.2.7.2.686 [id number] [facility] 2023-07-31 14:15:00 2023-07-31 14:15:00 Outpatient R JT ALEJANDRO [facility] [id number] [facility] 2023-07-28 00:00:00 2023-07-28 00:00:00 Abner Aviles [facility] 1.114 350.1.13.10 4.2.7.2.686 [id number] [id number] [facility] 2023-07-23 15:20:00 2023-07-23 15:20:00 Outpatient R OBI-KHALIDA , DHIRAJ OBI-KHALIDA , DHIRAJ [facility] [id number] [facility] 2023-07-21 08:45:00 2023-07-21 08:45:00 Outpatient R MOPURU, DIANDRA MOPURU, DIANDRA [facility] [id number] [facility] 2023-07-18 00:00:00 2023-07-18 00:00:00 Transition of Care Cassius Deras 1.840.114 350.1.13.10 4.2.7.2.686 [id number] [facility] 2023-07-02 19:45:00 2023-07-17 11:15:00 Inpatient U JAVON [facility] [id number] [facility] 2023-07-02 19:45:00 2023-07-17 11:15:00 Hospital Encounter Sanket Blair, Jackson [facility]org[facility] 1.[facility].114 350.1.13.10 4.2.7.2.686 [id number] [facility] 2023-07-11 11:40:00 2023-07-11 11:40:00 Outpatient R ABNER RIVERA [facility] [id number] [facility] 2023-07-08 19:30:00 2023-07-08 22:20:00 Surgery [facility] 1.840.114 350.1.13.10 4.2.7.2.686 [id number] [facility] 2023-07-08 06:45:00 2023-07-08 13:22:00 Surgery [facility] 1.2.840.114 350.1.13.10 4.2.7.2.686 [id number] [facility] 2023-07-04 15:12:00 2023-07-04 16:12:00 Surgery Venita Mayorga [facility] 1.2.840.114 350.1.13.10 4.2.7.2.686 [id number] [facility] 2023-07-02 00:00:00 2023-07-02 00:00:00 Telephone Tomeka Hoyos [facility] 1.2.840.114 350.1.13.10 4.2.7.2.686 [id number] [facility] 2023-06-24 00:00:00 2023-06-24 00:00:00 Telephone Abner Rivera [facility] 1.2.840.114 350.1.13.10 4.2.7.2.686 [id number] 044 [id number] [facility] 2023-06-20 10:00:00 2023-06-20 10:45:13 Outpatient R DIANDRA TILLMAN [facility] [id number] [facility] 2023-06-20 10:00:00 2023-06-20 10:45:13 Office Visit Diandra Tillman [email or web address]] MULTISPEC [facility]TY [facility] 1.2.840.114 350.1.13.10 4.2.7.2.686 [id number] [facility] 2023-06-20 00:00:00 2023-06-20 00:00:00 Orders Only Doctor Unassigned, [place] [facility] 1.2.840.114 350.1.13.10 4.2.7.2.686 [id number] [facility] 2023-06-13 09:30:00 2023-06-13 09:30:00 Outpatient KURTIS MORENO LEAH [facility] [id number] [facility] 2023-06-12 00:00:00 2023-06-12 00:00:00 Telephone NicoleAbner [facility] 1.114 350.1.13.10 4.2.7.2.686 [id number] [id number] [facility] 2023-06-12 00:00:00 2023-06-12 00:00:00 Orders Only Doctor Unassigned, [place] [facility] 1.114 350.1.13.10 4.2.7.2.686 [id number] [facility] 2023-05-26 11:00:00 2023-05-26 11:15:00 Bending Roll Hand Visit Vtc-Lab Will dunbar, [facility]ie [facility] 1.114 350.1.13.10 4.2.7.2.686 [id number] [facility] 2023-05-26 10:00:00 2023-05-26 10:41:00 Outpatient R NAOMIE BECK DO [facility] [id number] [facility] 2023-05-26 10:00:00 2023-05-26 10:41:00 Office Visit Parminder Rueda do, Ann [facility] MULTISPEC [facility]ALTY [facility] 1.114 350.1.13.10 4.2.7.2.686 [id number] [facility] 2023-05-23 11:30:00 2023-05-23 11:48:50 Bending Roll Hand Visit 2, Adc Lab Diandra Tillman [facility] 1..114 350.1.13.10 4.2.7.2.686 [id number] [facility] 2023-05-23 09:15:00 2023-05-23 10:33:55 Outpatient R DIANDRA TILLMAN [facility] [id number] [facility] 2023-05-23 09:15:00 2023-05-23 10:33:55 Office Visit [facility] 1.840.114 350.1.13.10 4.2.7.2.686 [id number] [facility] 2023-05-23 00:00:00 2023-05-23 00:00:00 Orders Only Doctor Unassigned, [place] [facility] 1.840.114 350.1.13.10 4.2.7.2.686 [id number] [facility] 2023-05-19 08:15:00 2023-05-19 08:15:00 Outpatient R [facility] [id number] [facility] 2023-05-02 10:30:00 2023-05-02 10:48:00 Outpatient R DIANDRA TILLMAN [facility] [id number] [facility] 2023-05-02 10:30:00 2023-05-02 10:45:00 [facility] 1..114 350.1.13.10 4.2.7.2.686 [id number] [facility] 2023-05-02 00:00:00 2023-05-02 00:00:00 Orders Only Doctor Unassigned, [place] [facility] 1.840.114 350.1.13.10 4.2.7.2.686 [id number] [facility] 2023-04-24 00:00:00 2023-04-24 00:00:00 Telephone Abner Rivera [facility] 1.0.114 350.1.13.10 4.2.7.2.686 [id number] [facility] 2023-04-22 15:00:00 2023-04-22 15:00:00 Outpatient R ABNER RIVERA [facility] [id number] [facility] 2023-03-28 10:15:00 2023-03-28 11:29:01 Outpatient R DIANDRA TILLMAN [facility] [id number] [facility] 2023-03-28 10:15:00 2023-03-28 10:30:00 Imm/Inj Visit Di[facility] 1.0.114 350.1.13.10 4.2.7.2.686 [id number] [facility] 2023-03-28 00:00:00 2023-03-28 00:00:00 Orders Only Doctor Unassigned, [place] [facility] 1.840.114 350.1.13.10 4.2.7.2.686 [id number] [facility] 2023-03-17 00:00:00 2023-03-17 00:00:00 Telephone Behzad Jolly [facility] [[email or web address] 1..114 350.1.13.10 4.2.7.2.686 [id number] [facility] 2023-03-17 00:00:00 2023-03-17 00:00:00 Refill Junior Garcia [facility] 1.0.114 350.1.13.10 4.2.7.2.686 [id number] [facility] 2023-03-13 09:45:00 2023-03-13 10:00:00 Bending Roll Hand Visit 2, Adc Lab Padmaja Emerson [facility] [[email or web address]] ROXANN MIR [facility] 1..114 350.1.13.10 4.2.7.2.686 [id number] [facility] 2023-03-13 09:45:00 2023-03-13 09:55:38 Outpatient PADMAJA ORELLANA [facility] [id number] [facility] 2023-03-12 00:00:00 2023-03-12 00:00:00 Telephone Penny Spencer [facility] 1..114 350.1.13.10 4.2.7.2.686 [id number] [facility] 2023-03-10 13:45:00 2023-03-10 13:45:00 Outpatient VAN JACOB [facility] [id number] [facility] 2023-02-24 10:30:00 2023-02-24 11:29:02 Outpatient DIANDRA FRY DIANDRA [facility] [id number] [facility] 2023-02-24 10:30:00 2023-02-24 10:45:00 Imm/Inj Visit Diandra Tillman [facility] 1..114 350.1.13.10 4.2.7.2.686 [id number] [facility] 2023-02-24 00:00:00 2023-02-24 00:00:00 Orders Only Doctor Unassigned, [place] [facility] 1..114 350.1.13.10 4.2.7.2.686 [id number] [facility] 2023-02-19 10:00:00 2023-02-19 11:08:18 Outpatient R JUNIOR GARCIA OGECHUKWU [facility] [id number] [facility] 2023-02-19 10:00:00 2023-02-19 11:08:18 Office Visit Junior Gracia [facility] 1.2.840.114 350.1.13.10 4.2.7.2.686 [id number] [facility] 2023-02-19 10:30:00 2023-02-19 10:45:00 Bending Roll Hand Visit 2, Adc Lab Junior Garcia [facility] 1.2.840.114 350.1.13.10 4.2.7.2.686 [id number] [facility] 2023-02-19 00:00:00 2023-02-19 00:00:00 Telephone Behzad Jolly [facility] [[email or web address] 1.2840.114 350.1.13.10 4.2.7.2.686 [id number] [facility] 2023-01-27 14:30:00 2023-01-27 16:11:42 Outpatient R YUEBarbaraDIANDRA RENUKA [facility] [id number] [facility] 2023-01-27 14:30:00 2023-01-27 16:11:42 Office Visit Diandra Tillman [facility] [[email or web address]] [facility] 1.2.840.114 350.1.13.10 4.2.7.2.686 [id number] [facility] 2023-01-21 00:00:00 2023-01-21 00:00:00 Telephone Junior Garcia [facility] 1.2.840.114 350.1.13.10 4.2.7.2.686 [id number] [facility] 2023-01-14 00:00:00 2023-01-14 00:00:00 Telephone Junior Garcia [facility] 1.2.840.114 350.1.13.10 4.2.7.2.686 [id number] [facility] [facility] 2023-01-13 11:00:00 2023-01-13 11:50:19 Outpatient R HALINA GARCIAGissellePANKAJ [facility] [id number] [facility] 2023-01-13 11:00:00 2023-01-13 11:50:19 Office Visit Junior Garcia [facility] 1.84.114 350.1.13.10 4.2.7.2.686 [id number] [facility] 2023-01-09 00:00:00 2023-01-09 00:00:00 Orders Only Doctor Unassigned, [place] [facility] 1..114 350.1.13.10 4.2.7.2.686 [id number] [facility] 2023-01-06 10:15:00 2023-01-06 11:47:22 Outpatient R VAN BROWN [facility] [id number] [facility] 2023-01-06 10:15:00 2023-01-06 10:30:00 Office Visit Van Brown [email or web address] 1..114 350.1.13.10 4.2.7.2.686 [id number] [facility] 2022-12-23 13:40:00 2022-12-23 13:40:00 Office Visit Kurtis Chase [email or web address] MULTISPEC [facility]TY [facility] 1.114 350.1.13.10 4.2.7.2.686 [id number] [facility] 2022-12-23 13:40:00 2022-12-23 13:32:47 Outpatient Matt KURTIS CHASE LEAH [facility] [id number] [facility] 2022-12-17 10:15:00 2022-12-17 10:15:00 Outpatient ML ARTEAGA [facility] [id number] [facility] 2022-12-17 00:00:00 2022-12-17 00:00:00 Telephone Abner Rivera [facility] 1..840.114 350.1.13.10 4.2.7.2.686 [id number] [facility] 2022-12-06 10:00:00 2022-12-06 10:00:00 Outpatient RADHA CHRISTENSEN SHIWAN [facility] [id number] [facility] 2022-11-25 13:20:00 2022-11-25 13:52:09 Outpatient NAOMIE HAQ DO [facility] [id number] [facility] 2022-11-25 13:20:00 2022-11-25 13:52:09 Office Visit Behzad Jolly do, Ann K N [facility] 1..840.114 350.1.13.10 4.2.7.2.686 [id number] [facility] 2022-11-22 09:30:00 2022-11-22 10:02:39 Outpatient NAOMIE HAQ DO [facility] [id number] [facility] 2022-11-22 09:30:00 2022-11-22 09:45:00 Bending Roll Hand Visit 2, Adc Lab Naomie Beck do [facility] 1.2.840.114 350.1.13.10 4.2.7.2.686 [id number] [facility] 2022-11-11 00:00:00 2022-11-11 00:00:00 Refill ShannanJunior [facility] 1.0.114 350.1.13.10 4.2.7.2.686 [id number] [facility] 2022-11-05 08:30:00 2022-11-05 08:30:00 Outpatient R ML KEYES [facility] [id number] [facility] 2022-10-28 14:21:31 2022-10-28 23:59:00 Outpatient R ABNER RIVREA [facility] [id number] [facility] 2022-10-28 14:21:31 2022-10-28 23:59:00 Hospital Encounter Abner Rivera [facility] 1.114 350.1.13.10 4.2.7.2.686 [id number] [facility] 2022-10-24 09:30:00 2022-10-24 10:18:32 Outpatient R ABNER RIVERA [facility] [id number] [facility] 2022-10-24 09:30:00 2022-10-24 10:18:32 Bending Roll Hand Visit Lab, Abner Conroy [facility] 1.114 350.1.13.10 4.2.7.2.686 [id number] [facility] 2022-10-24 00:00:00 2022-10-24 00:00:[address] [facility] 1.114 350.1.13.10 4.2.7.2.686 [id number] [facility] 2022-10-23 09:30:00 2022-10-23 09:30:00 Outpatient R NAOMIE BECK DO [facility] [id number] [facility] 2022-10-21 09:00:00 2022-10-21 10:35:29 Outpatient R ABNER RIVERA [facility] [id number] [facility] 2022-10-21 09:00:00 2022-10-21 10:35:29 Office Visit Abner Rivera [facility] 1..840.114 350.1.13.10 4.2.7.2.686 [id number] [facility] 2022-10-18 11:00:00 2022-10-18 11:00:00 Outpatient R ABNER RIVERA [facility] [id number] [facility] 2022-10-18 00:00:00 2022-10-18 00:00:00 Orders Only Doctor Unassigned, [place] [facility] 1..840.114 350.1.13.10 4.2.7.2.686 [id number] [facility] 2022-10-15 14:20:00 2022-10-15 14:25:18 Outpatient R TOMEKA HOYOS [facility] [id number] [facility] 2022-10-15 14:20:00 2022-10-15 14:25:18 [facility] 1..840.114 350.1.13.10 4.2.7.2.686 [id number] [facility] 2022-09-30 09:45:00 2022-09-30 10:00:00 Bending Roll Hand Visit Lab, Abner Conroy [facility] 1.2.84114 350.1.13.10 4.2.7.2.686 [id number] [facility] 2022-09-30 09:45:00 2022-09-30 09:27:03 Outpatient R ABNER RIVERA [facility] [id number] [facility] 2022-09-30 00:00:00 2022-09-30 00:00:00 Telephone Katarzyna Coburn [facility] [[email or web address] MULTISPEC [facility]TY [facility] 1.114 350.1.13.10 4.2.7.2.686 [id number] [facility] 2022-09-26 00:00:00 2022-09-26 00:00:00 Telephone Abner Rivera [facility] 1.84114 350.1.13.10 4.2.7.2.686 [id number] [facility] 2022-09-24 13:45:00 2022-09-24 14:02:27 Outpatient R UNKNOWN, ATTENDING [facility] [id number] [facility] 2022-09-24 13:45:00 2022-09-24 14:02:27 Bending Roll Hand Visit Lab, Ang - Db Unknown, [facility] 1.84114 350.1.13.10 4.2.7.2.686 [id number] [facility] 2022-09-20 00:00:00 2022-09-20 00:00:00 Telephone Naomie Beck do [facility] [[email or web address] MULTISPEC [facility]TY [facility] 1.114 350.1.13.10 4.2.7.2.686 [id number] [facility] 2022-09-17 14:40:00 2022-09-17 14:40:00 Outpatient R ABNER RIVERA [facility] [id number] [facility] 2022-09-17 00:00:00 2022-09-17 00:00:00 Telephone Abner Rivera [facility] 1..114 350.1.13.10 4.2.7.2.686 [id number] [facility] 2022-09-03 00:00:00 2022-09-03 00:00:00 Telephone Tomeka Hoyos [facility] 1..114 350.1.13.10 4.2.7.2.686 [id number] [facility] 2022-08-28 13:40:00 2022-08-28 13:40:00 Outpatient R KATARZYNA COBURN [facility] [id number] [facility] 2022-08-26 13:40:00 2022-08-26 15:14:40 Outpatient R BEHZAD JOLLY [facility] [id number] [facility] 13:40:00 2022-08-26 15:14:40 Office Visit Behzad Jolly do, Ann K N [facility] 1..114 350.1.13.10 4.2.7.2.686 [id number] [facility] 2022-08-23 09:30:00 2022-08-23 09:54:02 Outpatient R NAOMIE BECK DO [facility] [id number] [facility] 2022-08-23 09:30:00 2022-08-23 09:45:00 Bending Roll Hand Visit Lab, Na[facility]ie Shar[facility] 1.84.114 350.1.13.10 4.2.7.2.686 [id number] [facility] 2022-08-22 09:30:00 2022-08-22 09:30:00 Outpatient R NAOMIE BECK DO [facility] [id number] [facility] 2022-08-13 00:00:00 2022-08-13 00:00:00 Telephone Katarzyna Coburn [facility] [[email or web address] MULTISPEC [facility]TY [facility] 1.114 350.1.13.10 4.2.7.2.686 [id number] [facility] 2022-08-12 09:00:00 2022-08-12 09:27:29 Outpatient R NAOMIE BECK DO [facility] [id number] [facility] 2022-08-12 09:00:00 2022-08-12 09:27:29 Bending Roll Hand Visit Lab, [facility] 1..840.114 350.1.13.10 4.2.7.2.686 [id number] [facility] 2022-08-06 00:00:00 2022-08-06 00:00:00 Telephone [facility] Beck [facility] 1.114 350.1.13.10 4.2.7.2.686 [id number] [facility] 2022-08-05 00:00:00 2022-08-05 00:00:00 Telephone Junior Garcia [facility] 1.84.114 350.1.13.10 4.2.7.2.686 [id number] [facility] 2022-07-31 12:00:00 2022-07-31 12:00:00 Outpatient R [facility] [id number] [facility] 2022-07-30 15:30:00 2022-07-30 16:00:00 Office Visit Junior Garcia [facility] 1..114 350.1.13.10 4.2.7.2.686 [id number] [facility] 2022-07-30 15:30:00 2022-07-30 15:30:00 Outpatient R JUNIOR GARCIA OGECHUKWU [facility] [id number] [facility] 2022-07-25 00:00:00 2022-07-25 00:00:00 Abstract Katarzyna Coburn [facility] [[email or web address] MULTISPEC [facility]TY [facility] 1..114 350.1.13.10 4.2.7.2.686 [id number] [facility] 2022-07-23 09:00:00 2022-07-23 09:20:00 Office Visit Kurtis Chase [facility] [[email or web address] MULTISPEC [facility]TY [facility] 1..114 350.1.13.10 4.2.7.2.686 [id number] [facility] 2022-07-23 09:00:00 2022-07-23 09:00:00 Outpatient R KURTIS CHASE LEAH [facility] [id number] [facility] 2022-07-22 00:00:00 2022-07-22 00:00:00 Telephone Behzad Jolly [facility] [[email or web address] MULTISPEC [facility] 1..114 350.1.13.10 4.2.7.2.686 [id number] [facility] 2022-07-20 00:00:00 2022-07-20 00:00:00 RefAbner Deleon [facility] 1..114 350.1.13.10 4.2.7.2.686 [id number] [facility] 2022-07-20 00:00:00 2022-07-20 00:00:00 [facility] 1.840.114 350.1.13.10 4.2.7.2.686 [id number] [facility] 2022-07-17 16:15:00 2022-07-17 16:30:00 Bending Roll Hand Visit Vtc-Lab Katarzyna Coburn [facility]TY [facility] 1.840.114 350.1.13.10 4.2.7.2.686 [id number] [facility] 2022-07-17 14:20:00 2022-07-17 16:06:56 Outpatient R KATARZYNA COBURN [facility] [id number] [facility] 2022-07-17 14:20:00 2022-07-17 16:06:56 Office Visit Behzad Jolly Muhammad A [facility] 1.840.114 350.1.13.10 4.2.7.2.686 [id number] [facility] 2022-07-17 00:00:00 2022-07-17 00:00:00 Orders Only Doctor Unassigned, [place] [facility] 1.840.114 350.1.13.10 4.2.7.2.686 [id number] [facility] 2022-07-12 13:15:00 2022-07-12 13:32:40 Outpatient R KATARZYNA COBURN [facility] [id number] [facility] 2022-07-12 13:15:00 2022-07-12 13:32:40 Bending Roll Hand Visit Lab, Ang - Db Unknown, Attending Katarzyna Coburn [facility] 1.2840.114 350.1.13.10 4.2.7.2.686 [id number] [facility] 2022-06-29 00:00:00 2022-06-29 00:00:00 Refill Katarzyna Coburn [facility] [[email or web address] MULTISPEC [facility] 1.840.114 350.1.13.10 4.2.7.2.686 [id number] [facility] 2022-06-14 00:00:00 2022-06-14 00:00:00 Telephone Matt Iglesias [facility] 1.840.114 350.1.13.10 4.2.7.2.686 [id number] [facility] 2022-06-13 00:00:00 2022-06-13 00:00:00 [facility] 1.840.114 350.1.13.10 4.2.7.2.686 [id number] [facility] 2022-06-11 00:00:00 2022-06-11 00:00:00 Telephone Kurtis Chase [email or web address] MULTISPEC [facility] 1.840.114 350.1.13.10 4.2.7.2.686 [id number] [facility] 2022-06-04 00:00:00 2022-06-04 00:00:00 Telephone Katarzyna Coburn [facility] [[email or web address]PEC [facility] 1.840.114 350.1.13.10 4.2.7.2.686 [id number] [facility] 2022-06-03 09:40:00 2022-06-03 09:40:00 Outpatient R NAOMIE BECK DO [facility] [id number] [facility] 2022-06-03 00:00:00 2022-06-03 00:00:00 Telephone Katarzyna Coburn [email or web address]ULT[facility]PEC [facility] 1.0.114 350.1.13.10 4.2.7.2.686 [id number] [facility] 2022-06-02 00:00:00 2022-06-02 00:00:00 Telephone Katarzyna Coburn [facility] [[email or web address] MULT[facility]PEC [facility] 1..114 350.1.13.10 4.2.7.2.686 [id number] [facility] 2022-05-30 08:30:00 2022-05-30 09:35:01 Outpatient R ABNER RIVERA [facility] [id number] [facility] 2022-05-30 08:30:00 2022-05-30 09:35:01 Bending Roll Hand Visit Lab, Abner Conroy [facility] 1.84.114 350.1.13.10 4.2.7.2.686 [id number] [facility] 2022-05-16 09:00:00 2022-05-16 09:00:00 Office Visit Kurtis Chase [email or web address] MULTISPEC [facility] 1.114 350.1.13.10 4.2.7.2.686 [id number] [facility] 2022-05-16 09:00:00 2022-05-16 08:56:34 Outpatient R KURTIS CHASE LEAH [facility] [id number] [facility] 2022-05-15 13:20:00 2022-05-15 13:20:00 [facility] [id number] 2022-05-15 13:20:00 2022-05-15 13:20:00 [id number] 2022-05-15 13:20:00 2022-05-15 13:20:00 Outpatient R SOHA, [facility] [id number] [facility] 2022-05-15 13:20:00 2022-05-15 13:20:00 Outpatient R SOHA, [facility] [id number] [facility] 2022-05-15 13:20:00 2022-05-15 13:20:00 [facility] [id number] [facility] 2022-05-15 13:20:00 2022-05-15 13:20:00 [facility] [id number] [facility] 2022-05-07 09:30:00 2022-05-07 10:23:01 Outpatient R JUNIOR GARCIA OGECHUKWU [facility] [id number] [facility] 2022-05-07 09:30:00 2022-05-07 10:23:01 Office Visit Junior Garcia [facility] 1..840.114 350.1.13.10 4.2.7.2.686 [id number] [facility] 2022-05-07 00:00:00 2022-05-07 00:00:00 Orders Only Doctor Unassigned, [place] [facility] 1..840.114 350.1.13.10 4.2.7.2.686 [id number] [facility] 2022-04-25 00:00:00 2022-04-25 00:00:00 Telephone Katarzyna Coburn [email or web address] MULTISPEC [facility]TY [facility] 1.2.840.114 350.1.13.10 4.2.7.2.686 [id number] [facility] 2022-04-17 00:00:00 2022-04-17 00:00:00 Abstract Katarzyna Coburn [facility] [[email or web address] MULTISPEC [facility] 1.2.840.114 350.1.13.10 4.2.7.2.686 [id number] [facility] 2022-04-15 08:49:40 2022-04-15 23:59:00 Outpatient NAOMIE HAQ DO [facility] [id number] [facility] 2022-04-15 08:49:40 2022-04-15 23:59:00 Hospital Encounter Naomie Beck do [facility] 1.2840.114 350.1.13.10 4.2.7.2.686 [id number] [facility] 2022-04-15 00:00:00 2022-04-15 00:00:00 Telephone Shanae [facility] 1.2840.114 350.1.13.10 4.2.7.2.686 [id number] [facility] 2022-04-15 00:00:00 2022-04-15 00:00:00 Refill Shanae [facility] 1.2840.114 350.1.13.10 4.2.7.2.686 [id number] [facility] 2022-04-10 10:00:00 2022-04-10 13:03:31 Outpatient PADMAJA ORELLANA [facility] [id number] [facility] 2022-04-10 10:00:00 2022-04-10 13:03:31 Bending Roll Hand Visit 2, [facility] Lab Padmjaa Emerson [facility] 1.2840.114 350.1.13.10 4.2.7.2.686 [id number] [facility] 2022-04-05 00:00:00 2022-04-05 00:00:00 Telephone Katarzyna Coburn [email or web address] MULTISPEC [facility] 1.2.840.114 350.1.13.10 4.2.7.2.686 [id number] [facility] 2022-04-04 00:00:00 2022-04-04 00:00:00 Telephone [facility] 1.20.114 350.1.13.10 4.2.7.2.686 [id number] [facility] 2022-04-01 14:20:00 2022-04-01 14:40:00 Nurse Visit Nurse, [facility] Naomie Mccabe do [facility] 1..84.114 350.1.13.10 4.2.7.2.686 [id number] [facility] 2022-04-01 11:30:00 2022-04-01 13:12:10 Outpatient R NAOMIE BECK DO [facility] [id number] [facility] 2022-04-01 11:30:00 2022-04-01 11:45:00 Bending Roll Hand Visit 2, [facility] Naomie Beck do [facility] 1.284.114 350.1.13.10 4.2.7.2.686 [id number] [facility] 2022-04-01 00:00:00 2022-04-01 00:00:00 Abner Reynolds [facility] 1.2.840.114 350.1.13.10 4.2.7.2.686 [id number] [facility] 2022-03-28 00:00:00 2022-03-28 00:00:00 Refill Abner Rivera [facility] 1.2.840.114 350.1.13.10 4.2.7.2.686 [id number] [facility] 2022-03-22 00:00:00 2022-03-22 00:00:00 Refill Abner Rivera [facility] 1.2.840.114 350.1.13.10 4.2.7.2.686 [id number] [facility] 2022-03-22 00:00:00 2022-03-22 00:00:00 Refill Parminder Rueda [facility] [[email or web address] MULTISPEC [facility] 1.2.840.114 350.1.13.10 4.2.7.2.686 [id number] [facility] 2022-03-14 00:00:00 2022-03-14 00:00:00 Telephone HermilaAbner doan [facility] 1.2.840.114 350.1.13.10 4.2.7.2.686 [id number] [facility] 2022-03-13 00:00:00 2022-03-13 00:00:00 Telephone Behzad Jolly [facility] [[email or web address] 1.2.840.114 350.1.13.10 4.2.7.2.686 [id number] [facility] 2022-03-12 15:30:00 2022-03-12 16:12:38 Outpatient R JUNIOR GARCIA OGECHUKKAYODE [facility] [id number] [facility] 2022-03-12 15:30:00 2022-03-12 16:12:38 Office Visit Junior Garcia [facility] 1.20.114 350.1.13.10 4.2.7.2.686 [id number] [facility] 2022-03-12 14:30:00 2022-03-12 14:45:00 Bending Roll Hand Visit 2, Adc Lab ShanaeCinthiam [facility] 1.2.114 350.1.13.10 4.2.7.2.686 [id number] [facility] 2022-02-26 09:00:00 2022-02-26 13:35:11 Outpatient R KURTIS CHASE LEAH [facility] [id number] [facility] 2022-02-26 09:00:00 2022-02-26 13:35:11 Office Visit Kurtis Chase [facility] [[email or web address]] [facility] 1.114 350.1.13.10 4.2.7.2.686 [id number] [facility] 2022-02-08 00:00:00 2022-02-08 00:00:00 Isreal Warren [facility] 1.84.114 350.1.13.10 4.2.7.2.686 [id number] [facility] 2022-02-04 13:00:00 2022-02-04 13:10:00 Imm/Inj Visit Vaccine, Adc Family Medicine Abner Rivera [facility] 1.284.114 350.1.13.10 4.2.7.2.686 [id number] [facility] 2022-02-04 11:30:00 2022-02-04 12:05:54 Outpatient R JUNIOR GARCIARUTHANNKAYODE [facility] [id number] [facility] 2022-02-04 11:30:00 2022-02-04 12:05:54 Office Visit Delio Garciabarbara [facility] [[email or web address]] ROXANN MARTINEZ [facility] 1.840.114 350.1.13.10 4.2.7.2.686 [id number] [facility] 2022-01-30 15:00:00 2022-01-30 15:00:00 Outpatient ABNER CARDONA [facility] [id number] [facility] 2022-01-30 15:00:00 2022-01-30 15:00:00 Outpatient R ABNER RIVERA [facility] [id number] [facility] 2022-01-28 10:00:00 2022-01-28 11:41:19 Outpatient R RORY JOLLY [facility] [id number] [facility] 2022-01-28 10:00:00 2022-01-28 11:41:19 Office Visit Behzad Jolly do, Naomie Jolly [facility] 1.840.114 350.1.13.10 4.2.7.2.686 [id number] [facility] 2022-01-28 00:00:00 2022-01-28 00:00:00 Telephone Behzad Jolly [facility] [[email or web address]] [facility] .840.114 350.1.13.10 4.2.7.2.686 [id number] [facility] 2022-01-24 12:00:00 2022-01-24 12:56:43 Outpatient ABNER CARDONA [facility] [id number] [facility] 2022-01-24 12:00:00 2022-01-24 12:56:43 Bending Roll Hand Visit Lab, Abner Conroy [facility] 1..840.114 350.1.13.10 4.2.7.2.686 [id number] [facility] 2022-01-17 10:40:00 2022-01-17 17:36:05 Outpatient KURTIS [facility] [id number] [facility] 2022-01-17 10:40:00 2022-01-17 11:00:00 Office Visit Kurtis Chase [facility] 1..840.114 350.1.13.10 4.2.7.2.686 [id number] [facility] 2022-01-17 10:40:00 2022-01-17 10:40:00 Outpatient R KURTIS CHASE LEAH [facility] [id number] [facility] 2022-01-14 00:00:00 2022-01-14 00:00:00 Orders Only Doctor Unassigned, [place] [facility] 1..840.114 350.1.13.10 4.2.7.2.686 [id number] [facility] 2022-01-03 14:00:00 2022-01-03 14:00:00 Outpatient R LAWRENCE COBURNMAD [facility] [id number] [facility] 2022-01-03 14:00:00 2022-01-03 14:00:00 Outpatient R LAWRENCE COBURNMAD [facility] [id number] [facility] 2022-01-03 14:00:00 2022-01-03 14:00:00 Outpatient R LAWRENCE COBURNMAD [facility] [id number] [facility] 2022-01-03 14:00:00 2022-01-03 14:00:00 Outpatient R KATARZYNA COBURN [facility] [id number] [facility] 2022-01-03 14:00:00 2022-01-03 14:00:00 Outpatient R KATARZYNA COBURN [facility] [id number] [facility] 2022-01-02 00:00:00 2022-01-02 00:00:00 Telephone Alexandrea Segundo [facility] 1..840.114 350.1.13.10 4.2.7.2.686 [id number] [facility] 2021-12-26 15:00:00 2021-12-26 15:56:20 Outpatient R ABNER RIVERA [facility] [id number] [facility] 2021-12-26 15:00:00 2021-12-26 15:56:20 Outpatient R ABNER RIVERA [facility] [id number] [facility] 2021-12-26 15:00:00 2021-12-26 15:56:20 Office Visit Abner [facility] 1..840.114 350.1.13.10 4.2.7.2.686 [id number] [facility] 2021-12-21 00:00:00 2021-12-21 00:00:[address] [facility] 1..840.114 350.1.13.10 4.2.7.2.686 [id number] [facility] 2021-12-20 11:15:00 2021-12-20 11:15:00 Outpatient R ABNER RIVERA [facility] [id number] [facility] 2021-12-20 11:15:00 2021-12-20 11:15:00 Bending Roll Hand Visit Lab, Ang - Hans Velaranjittanya [facility] 1.114 350.1.13.10 4.2.7.2.686 [id number] [facility] 2021-12-20 11:15:00 2021-12-20 11:01:30 Outpatient R [facility]I [facility] [id number] [facility] 2021-12-20 11:15:00 2021-12-20 11:01:30 Outpatient R HERMILAMAYI [facility] [id number] [facility] 2021-12-17 00:00:00 2021-12-17 00:00:00 Transition of Care Cassius [facility] 1.114 350.1.13.10 4.2.7.2.686 [id number] [facility] 2021-12-13 10:51:00 2021-12-15 17:59:00 Inpatient U ASHWIN WILSON [email or web address] AKANKSHA [id number] [facility] 2021-12-13 10:51:00 2021-12-15 17:59:00 Hospital Encounter Nkechi Malave, Ashwin Lloyd [facility] 1.114 350.1.13.10 4.2.7.2.686 [id number] [facility] 2021-12-13 10:51:00 2021-12-15 17:59:00 Inpatient U ASHWIN WILSON [facility] [[email or web address] AKANKSHA [id number] [facility] 2021-12-13 00:00:00 2021-12-13 00:00:00 [facility]phone [facility] 1.114 350.1.13.10 4.2.7.2.686 [id number] [facility] 2021-11-26 00:00:00 2021-11-26 00:00:00 Telephone Tomeka Hoyos [facility] 1.2.840.114 350.1.13.10 4.2.7.2.686 [id number] [facility] 2021-11-21 15:00:00 2021-11-21 16:16:51 Outpatient R ABNER RIVERA [facility] [id number] [facility] 2021-11-21 15:00:00 2021-11-21 16:16:51 Office Visit Nicole Abner [facility] 1.2.840.114 350.1.13.10 4.2.7.2.686 [id number] [facility] 2021-11-21 15:00:00 2021-11-21 16:16:51 Outpatient R ABNER RIVERA [facility] [id number] [facility] 2021-11-21 15:00:00 2021-11-21 15:00:00 Outpatient R ABNER RIVERA [facility] [id number] [facility] 2021-11-14 10:30:00 2021-11-14 10:45:00 Bending Roll Hand Visit 2, Adc Lab Abner Rivera [facility] 1.2.840.114 350.1.13.10 4.2.7.2.686 [id number] [facility] 2021-11-14 10:30:00 2021-11-14 10:45:00 Bending Roll Hand Visit 2, Adc Lab Abner Rivera [facility] 1.2.840.114 350.1.13.10 4.2.7.2.686 [id number] [facility] 2021-11-14 09:30:00 2021-11-14 09:32:21 Outpatient R JUNIOR GARCIA OGECHUKWU [facility] [id number] [facility] 2021-11-14 09:30:00 2021-11-14 09:32:21 Office Visit Junior Garcia [facility] 1.2.840.114 350.1.13.10 4.2.7.2.686 [id number] [facility] 2021-11-05 14:00:00 2021-11-05 14:00:00 Outpatient R DESMONDJANES DELAROSADAMON [facility] [id number] [facility] 2021-11-05 14:00:00 2021-11-05 14:00:00 [facility] [id number] [facility] 2021-10-18 08:00:00 2021-10-18 08:00:00 Outpatient R LAWRENCE COBURNMAD [facility] [id number] [facility] 2021-10-18 08:00:00 2021-10-18 08:00:00 Outpatient R KATARZYNA COBURN [facility] [id number] [facility] 2021-10-12 00:00:00 2021-10-12 00:00:00 Abner Reynolds [facility] 1..840.114 350.1.13.10 4.2.7.2.686 [id number] [facility] 2021-10-04 00:00:00 2021-10-04 00:00:00 Telephone Nicole Pelaez [facility] ([facility] 1.2.840.114 350.1.13.10 4.2.7.2.686 [id number] [facility] 2021-10-02 08:40:00 2021-10-02 09:11:54 Outpatient R ABNER RIVERA [facility] [id number] [facility] 2021-10-02 08:00:00 2021-10-02 09:11:36 Office Visit Abner [facility] 1.2.840.114 350.1.13.10 4.2.7.2.686 [id number] [facility] 2021-10-02 08:40:00 2021-10-02 09:00:00 Office Visit Abner Rivera [facility] 1.2.840.114 350.1.13.10 4.2.7.2.686 [id number] [facility] 2021-10-02 08:40:00 2021-10-02 08:40:00 Outpatient R ABNER RIVERA [facility] [id number] [facility] 2021-10-02 08:00:00 2021-10-02 08:00:00 Outpatient R ABNER RIVERA [facility] [id number] [facility] 2021-10-02 00:00:00 2021-10-02 00:00:00 Orders Only Doctor Unassigned, [place] [facility] 1.2.840.114 350.1.13.10 4.2.7.2.686 [id number] [facility] 2021-09-26 08:45:00 2021-09-26 09:00:00 Bending Roll Hand Visit 2, Adc Lab Abner Rivera [facility] 1.2.840.114 350.1.13.10 4.2.7.2.686 [id number] [facility] 2021-09-26 08:45:00 2021-09-26 08:45:00 Outpatient R ABNER RIVERA [facility] [id number] [facility] 2021-09-26 08:45:00 2021-09-26 08:45:00 Outpatient R ABNER RIVERA [facility] [id number] [facility] 2021-09-26 08:45:00 2021-09-26 08:45:00 Outpatient R NICOLE ABNER [facility] [id number] [facility] 2021-09-26 08:45:00 2021-09-26 08:45:00 Outpatient R ABNER RIVERA [facility] [id number] [facility] 2021-09-26 08:45:00 2021-09-26 08:45:00 Outpatient R ABNER RIVERA [facility] [id number] [facility] 2021-09-25 00:00:00 2021-09-25 00:00:00 Telephone Abner Rivera [facility] 1.2.840.114 350.1.13.10 4.2.7.2.686 [id number] [facility] 2021-09-18 14:00:00 2021-09-18 15:08:38 Outpatient R NICOLE ABNER [facility] [id number] [facility] 2021-09-18 14:00:00 2021-09-18 15:08:38 Office Visit Hermilaranjittanya Abner [facility] 1.2.840.114 350.1.13.10 4.2.7.2.686 [id number] [facility] 2021-09-18 14:00:00 2021-09-18 15:08:38 Outpatient R HERMILARANJITJAGRUTIDARRIANABNER [facility] [id number] [facility] 2021-09-18 14:00:00 2021-09-18 14:00:00 Outpatient R NICOLE ABNER [facility] [id number] [facility] 2021-09-18 14:00:00 2021-09-18 14:00:00 Outpatient R ABNER RIVERA [facility] [id number] [facility] 2021-09-06 14:45:00 2021-09-06 15:00:00 Bending Roll Hand Visit Vtc-Lab Katarzyna Coburn Asim [facility] 1.840.114 350.1.13.10 4.2.7.2.686 [id number] [facility] 2021-09-06 14:45:00 2021-09-06 14:45:00 Outpatient R SHANAE, BEHZAD [facility] [id number] [facility] 2021-09-06 13:40:00 2021-09-06 14:26:55 Office Visit Behzad Jolly Muhammad A [facility]TY [facility] 1.840.114 350.1.13.10 4.2.7.2.686 [id number] [facility] 2021-09-06 13:40:00 2021-09-06 14:26:55 Outpatient R SHANAEBEHZAD JANSEN [facility] [id number] [facility] 2021-09-06 13:40:00 2021-09-06 13:40:00 Outpatient R KATARZYNA COBURN [facility] [id number] [facility] 2021-09-06 00:00:00 2021-09-06 00:00:00 Telephone Tomeka Hoyos [facility] 1..840.114 350.1.13.10 4.2.7.2.686 [id number] [facility] 2021-09-03 14:00:00 2021-09-03 14:00:00 Outpatient R KATARZYNA COBURN [facility] [id number] [facility] 2021-09-03 13:30:00 2021-09-03 13:41:21 Imm/Inj Visit Vaccine, [facility] Nelly Parker [facility] 1.2.840.114 350.1.13.10 4.2.7.2.686 [id number] [facility] 2021-09-03 13:30:00 2021-09-03 13:30:00 Outpatient R NELLY PARKER [facility] [id number] [facility] 2021-09-03 13:15:00 2021-09-03 13:30:00 Bending Roll Hand Visit 2, [facility] Flash Angeles Hoyosjose [facility] 1.2.840.114 350.1.13.10 4.2.7.2.686 [id number] [facility] 2021-09-03 13:15:00 2021-09-03 13:15:00 [facility] [id number] [facility] 2021-09-03 13:15:00 2021-09-03 13:15:00 [facility] [id number] [facility] 2021-09-03 13:15:00 2021-09-03 13:15:00 [facility] [id number] [facility] 2021-09-03 13:15:00 2021-09-03 13:15:00 [facility] [id number] [facility] 2021-08-13 15:00:00 2021-08-13 15:00:00 [facility] [id number] [facility] 2021-08-13 14:00:00 2021-08-13 14:26:07 [facility] [id number] [facility] 2021-08-13 14:00:00 2021-08-13 14:26:07 Office Visit Tomeka Hoyos [facility] 1.84.114 350.1.13.10 4.2.7.2.686 [id number] [facility] 2021-07-20 00:00:00 2021-07-20 00:00:00 Telephone Naomie Beck do [email or web address] 1.114 350.1.13.10 4.2.7.2.686 [id number] [facility] 2021-07-18 00:00:00 2021-07-18 00:00:00 Refill Isreal Logan [facility] 1.84.114 350.1.13.10 4.2.7.2.686 [id number] [facility] 2021-07-16 15:30:00 2021-07-16 15:30:00 Outpatient R [facility] [id number] [facility] 2021-07-16 15:30:00 2021-07-16 15:30:00 Outpatient R [facility] [id number] [facility] 2021-07-11 00:00:00 2021-07-11 00:00:00 Telephone Naomie Beck do [email or web address] 1.114 350.1.13.10 4.2.7.2.686 [id number] [facility] 2021-07-02 13:45:50 2021-07-02 23:59:00 Outpatient R BRENDA RAPHAEL [facility] [id number] [facility] 2021-07-02 13:45:50 2021-07-02 23:59:00 Hospital Encounter Brenda Raphael [facility] 1.114 350.1.13.10 4.2.7.2.686 [id number] [facility] 2021-07-02 13:45:50 2021-07-02 23:59:00 Outpatient BRENDA BROOKS [facility] [id number] [facility] 2021-07-01 00:00:00 2021-07-01 00:00:00 Behzad Larsen [facility] 1.2.840.114 350.1.13.10 4.2.7.2.686 [id number] [facility] 2021-06-26 14:38:50 2021-06-26 23:59:00 Outpatient TOMEKA TERRELL [facility] [id number] [facility] 2021-06-20 13:38:53 2021-06-20 23:59:00 Hospital Encounter Brenda Raphael [facility] 1.2.840.114 350.1.13.10 4.2.7.2.686 [id number] [facility] 2021-06-20 00:00:00 2021-06-20 23:59:00 Outpatient BRENDA BROOKS [facility] [id number] [facility] 2021-06-20 00:00:00 2021-06-20 23:59:00 Outpatient BRENDA BROOKS [facility] [id number] [facility] 2021-06-20 00:00:00 2021-06-20 23:59:00 Outpatient BRENDA BROOKS [facility] [id number] [facility] 2021-06-20 00:00:00 2021-06-20 23:59:00 Outpatient BRENDA BROOKS [facility] [id number] [facility] 2021-06-20 00:00:00 2021-06-20 23:59:00 Outpatient BRENDA BROOKS [facility] [id number] [facility] 2021-06-13 08:00:00 2021-06-13 08:21:22 Outpatient R BRENDA RAPHAEL [facility] [id number] [facility] 2021-06-13 08:00:00 2021-06-13 08:21:22 Office Visit Brenda Raphael [facility] [[email or web address]] ROXANN MARTINEZ [facility] 1.114 350.1.13.10 4.2.7.2.686 [id number] [facility] 2021-06-13 08:00:00 2021-06-13 08:00:00 Outpatient R BRENDA RAPHAEL [facility] [id number] [facility] 2021-06-11 00:00:00 2021-06-11 00:00:00 Abstract Katarzyna Coburn [facility] [[email or web address]] [facility] 1.114 350.1.13.10 4.2.7.2.686 [id number] [facility] 2021-06-07 14:15:00 2021-06-07 14:45:00 Bending Roll Hand Visit Vtc-Lab Katarzyna Coburn [facility] [[email or web address] 1.114 350.1.13.10 4.2.7.2.686 [id number] [facility] 2021-06-07 13:20:00 2021-06-07 14:00:27 Outpatient R KATARZYNA COBURN [facility] [id number] [facility] 2021-06-07 13:20:00 2021-06-07 14:00:27 Office Visit Behzad Jolly Muhammad A [facility] [[email or web address] 1.114 350.1.13.10 4.2.7.2.686 [id number] [facility] 2021-06-07 13:20:00 2021-06-07 14:00:27 Outpatient R KATARZYNA COBURN [facility] [id number] [facility] 2021-06-04 14:30:00 2021-06-04 14:49:47 Outpatient R KATARZYNA COBURN [facility] [id number] [facility] 2021-06-04 14:30:00 2021-06-04 14:49:47 Bending Roll Hand Visit Lab, Meng - Hans Katarzyna Coburn A [facility] ZHAO?[facility] 1.2.840.114 350.1.13.10 4.2.7.2.686 [id number] [facility] 2021-06-04 14:30:00 2021-06-04 14:49:47 Outpatient R KATARZYNA COBURN [facility] [id number] [facility] 2021-06-04 14:30:00 2021-06-04 14:49:47 Outpatient R KATARZYNA COBURN [facility] [id number] [facility] 2021-06-04 14:30:00 2021-06-04 14:49:47 Outpatient R KATARZYNA COBURN [facility] [id number] [facility] 2021-06-04 14:30:00 2021-06-04 14:30:00 Outpatient R KATARZYNA COBURN [facility] [id number] [facility] 2021-06-04 08:00:00 2021-06-04 08:00:00 Outpatient R NAOMIE BECK DO [facility] [id number] [facility] 2021-06-04 08:00:00 2021-06-04 08:00:00 Outpatient R HOLLAND-DAVIDU NAOMIE DUNBAR [facility] [id number] [facility] 2021-06-04 00:00:00 2021-06-04 00:00:00 Orders Only Doctor Unassigned, [place] [facility] 1..114 350.1.13.10 4.2.7.2.686 [id number] [facility] 2021-06-04 00:00:00 2021-06-04 00:00:00 Telephone Isreal Logan [facility] Z[facility]O?[facility] 1.114 350.1.13.10 4.2.7.2.686 [id number] [facility] 2021-06-01 00:00:00 2021-06-01 00:00:00 Telephone Will dunbar, Naomie Andrade [facility] 1.114 350.1.13.10 4.2.7.2.686 [id number] [facility] 2021-05-25 00:00:00 2021-05-25 00:00:00 [facility] 1.114 350.1.13.10 4.2.7.2.686 [id number] [facility] 2021-05-23 00:00:00 2021-05-23 00:00:00 Refill Isreal Logan [facility] Z[facility]O?[facility] 1.114 350.1.13.10 4.2.7.2.686 [id number] [facility] 2021-05-22 14:00:00 2021-05-22 23:59:00 Outpatient R TOMEKA HOYOS [facility] [id number] [facility] 2021-05-22 14:00:00 2021-05-22 23:59:00 [facility] 1.84114 350.1.13.10 4.2.7.2.686 [id number] [facility] 2021-05-22 14:00:00 2021-05-22 14:00:00 [facility] [id number] [facility] 2021-05-21 15:30:00 2021-05-21 15:30:00 [facility] 1.2.840.114 350.1.13.10 4.2.7.2.686 [id number] [facility] 2021-05-21 15:30:00 2021-05-21 15:18:08 Outpatient R ISREAL LOGAN [facility] [id number] [facility] 2021-05-15 15:00:00 2021-05-15 15:33:39 [facility] [id number] [facility] 2021-05-15 15:00:00 2021-05-15 15:33:39 [facility] 1.2.840.114 350.1.13.10 4.2.7.2.686 [id number] [facility] 2021-05-15 15:00:00 2021-05-15 15:33:39 [facility] [id number] 2021-05-15 15:00:00 2021-05-15 15:00:00 [facility] [id number] [facility] 2021-05-15 15:00:00 2021-05-15 15:00:00 [facility] [id number] [facility] 2021-05-10 00:00:00 2021-05-10 00:00:00 Case Management DesmondIsreal delarosa [facility] 1.2.840.114 350.1.13.10 4.2.7.2.686 [id number] [facility] 2021-05-09 14:00:00 2021-05-09 14:52:25 Outpatient R RUSSELL LOGANFUL [facility] [id number] [facility] 2021-05-09 14:00:00 2021-05-09 14:52:25 Outpatient R DESMONDJANES DELAROSADIFUL [facility] [id number] [facility] 2021-05-09 14:00:00 2021-05-09 14:52:25 Outpatient R DESMONDJANES DELAROSADIFUL [facility] [id number] [facility] 2021-05-09 14:00:00 2021-05-09 14:52:25 Outpatient R JANES LOGANDIFUL [facility] [id number] [facility] 2021-05-09 14:00:00 2021-05-09 14:15:00 Bending Roll Hand Visit Lab, Ang - Db Russell Loganful [facility] [id number] [id number] [id number] [id number] [facility] 2021-05-09 14:00:00 2021-05-09 14:00:00 Outpatient R RUSSELL LOGANFUL [facility] [id number] [facility] 2021-05-07 08:45:00 2021-05-07 09:14:41 Outpatient R RUSSELL LOGANFUL [facility] [id number] [facility] 2021-05-07 08:45:00 2021-05-07 09:14:41 Office Visit Isreal Logan [facility] ZHAO?[facility] [id number] 350.1.13.10 [id number] [id number] [facility] 2021-05-07 08:45:2021-05-07 09:14:41 Outpatient ISREAL SCHWARTZ [facility] [id number] [facility] 2021-05-07 08:45:00 2021-05-07 08:45:00 Outpatient Matt ISREAL LOGAN [facility] [id number] [facility] 2021-05-07 08:30:00 2021-05-07 08:30:00 Outpatient ISREAL SCHWARTZ [facility] [id number] [facility] 2021-05-01 13:00:00 2021-05-01 13:15:00 Bending Roll Hand Visit [facility] Sleep Lab Kain Julien [facility] .840.114 350.1.13.10 [id number] [id number] [facility] 2021-05-01 13:00:00 2021-05-01 13:00:00 Outpatient KAIN RAMIREZ STRAMEAllison [facility] [id number] [facility] 2021-05-01 13:00:00 2021-05-01 13:00:00 Outpatient KAIN RAMIREZ STRAHIL [facility] [id number] [facility] 2021-05-01 00:00:00 2021-05-01 00:00:00 Orders Only Doctor Unassigned, [place] [facility] .840.114 350.1.13.10 4.2.7.2.686 [id number] [facility] 2021-04-30 00:00:00 2021-04-30 00:00:00 Isreal Warren [facility] 1..840.114 350.1.13.10 4.2.7.2.686 [id number] [facility] 2021-04-28 00:00:00 2021-04-28 00:00:00 Refill DesmondJanes delarosanilson Nelson [facility] ZHOA?[facility] 1..840.114 350.1.13.10 4.2.7.2.686 [id number] [facility] 2021-04-27 14:45:00 2021-04-27 15:00:00 Laboratory Only Only, Adc Test Kain Julien T [facility] 1..840.114 350.1.13.10 4.2.7.2.686 [id number] [facility] 2021-04-27 14:45:00 2021-04-27 14:45:00 Outpatient R [facility] [id number] [facility] 2021-04-27 14:45:00 2021-04-27 14:45:00 Outpatient R DANILO JULIENL DANILO JULIENL [facility] [id number] [facility] 2021-04-27 14:45:00 2021-04-27 14:45:00 Outpatient R KAIN JULIEN, GRACEHIL [facility] [id number] [facility] 2021-04-25 14:00:00 2021-04-25 14:00:00 Outpatient R ZARI MEHTA [facility] [id number] [facility] 2021-04-19 14:00:00 2021-04-19 14:35:40 Outpatient R ISREAL LOGAN [facility] [id number] [facility] 2021-04-19 14:00:00 2021-04-19 14:35:40 Office Visit Isreal Logan Nelson [facility] Z[facility]O?[facility] 1.2.840.114 350.1.13.10 4.2.7.2.686 [id number] [facility] 2021-04-19 14:00:00 2021-04-19 14:00:00 Outpatient R ISREAL LOGAN [facility] [id number] [facility] 2021-04-17 00:00:00 2021-04-17 00:00:00 Refill Isreal Logan [facility] ZHAO?[facility] 1.114 350.1.13.10 4.2.7.2.686 [id number] [facility] 2021-04-16 09:20:00 2021-04-16 09:40:00 Office Visit Behzad Jolly do, [facility] 1.114 350.1.13.10 4.2.7.2.686 [id number] [facility] 2021-04-16 09:20:00 2021-04-16 09:20:00 Outpatient NAOMIE HAQ DO [facility] [id number] [facility] 2021-04-16 08:45:00 2021-04-16 09:00:00 Bending Roll Hand Visit Vtc-Lab Will dunbar, Naomie [facility] 1. 350.1.13.10 4.2.7.2.686 [id number] [facility] 2021-04-09 00:00:00 2021-04-09 00:00:00 Telephone Desmond Janesmcdamon Damon [facility] Z[facility]O?[facility] 1.114 350.1.13.10 4.2.7.2.686 [id number] [facility] 2021-03-30 00:00:00 2021-03-30 00:00:00 Orders Only Doctor Unassigned, [place] [facility] 1.114 350.1.13.10 4.2.7.2.686 [id number] [facility] 2021-03-29 17:01:51 2021-03-29 17:11:33 Bending Roll Hand Visit Lab, Ang - Db Isreal [facility] 1..840.114 350.1.13.10 4.2.7.2.686 [id number] [facility] 2021-03-29 16:00:00 2021-03-29 17:03:58 Outpatient R ISREAL LOGAN [facility] [id number] [facility] 2021-03-29 15:49:02 2021-03-29 17:03:58 Office Visit Isreal Logan [facility] 1..840.114 350.1.13.10 4.2.7.2.686 [id number] [facility] 2021-03-29 17:00:00 2021-03-29 17:00:00 Outpatient R ISREAL LOGAN [facility] [id number] [facility] 2021-03-29 15:30:00 2021-03-29 15:30:00 Outpatient R RADHA STAHL SHIWAN [facility] [id number] [facility] 2021-03-27 00:00:00 2021-03-27 00:00:00 Telephone Isreal Logan [facility] 1..840.114 350.1.13.10 4.2.7.2.686 [id number] [facility] 2021-03-24 00:00:00 2021-03-24 00:00:00 Refill Isreal Logan [facility] 1..840.114 350.1.13.10 4.2.7.2.686 [id number] [facility] 2021-03-20 00:00:00 2021-03-20 00:00:00 Telephone Isreal Logan [facility] ZHAO?[facility] 1.114 350.1.13.10 4.2.7.2.686 [id number] [facility] 2021-03-19 00:00:00 2021-03-19 00:00:00 Telephone Isreal Logan [facility] Z[facility]O?[facility] 1.114 350.1.13.10 4.2.7.2.686 [id number] [facility] 2021-03-16 00:00:00 2021-03-16 00:00:00 Telephone Will dunbar, Naomie Andrade [email or web address] MULTIS[facility] 1.114 350.1.13.10 4.2.7.2.686 [id number] [facility] 2021-03-15 14:47:13 2021-03-15 23:59:00 Out[facility] [id number] [facility] 2021-03-15 14:47:13 2021-03-15 23:59:00 Hospital Encounter Radha Stahl [facility] 1.114 350.1.13.10 4.2.7.2.686 [id number] [facility] 2021-03-15 00:00:00 2021-03-15 00:00:00 Refill Will dunbar, Naomie Coles N [facility] [[email or web address] MULTISPEC [facility] 1.114 350.1.13.10 4.2.7.2.686 [id number] [facility] 2021-03-14 00:00:00 2021-03-14 00:00:00 Refill Desmond Janesnilson Damon [facility] ZHAO?[facility] 1.2.840.114 350.1.13.10 4.2.7.2.686 [id number] [facility] 2021-03-13 00:00:00 2021-03-13 00:00:00 Telephone Isreal Logan [facility] 1.2.840.114 350.1.13.10 4.2.7.2.686 [id number] [facility] 2021-02-27 00:00:00 2021-02-27 00:00:00 Refill Isreal Logan [facility] 1.2.840.114 350.1.13.10 4.2.7.2.686 [id number] [facility] 2021-02-12 09:42:17 2021-02-12 09:57:17 Bending Roll Hand Visit [facility] Zari eMhta [facility] 1.2840.114 350.1.13.10 4.2.7.2.686 [id number] [facility] 2021-02-12 08:54:51 2021-02-12 09:24:51 Office Visit Zari Mehta [facility] 1.2840.114 350.1.13.10 4.2.7.2.686 [id number] [facility] 2021-02-12 09:00:00 2021-02-12 09:00:00 Outpatient ZARI CORDOVA [facility] [id number] [facility] 2021-02-12 09:00:00 2021-02-12 09:00:00 Outpatient ZARI CORDOVA [facility] [id number] [facility] 2021-02-12 09:00:00 2021-02-12 09:00:00 Outpatient R ZARI MEHTA [facility] [id number] [facility] 2021-02-03 00:00:00 2021-02-03 00:00:00 [facility] 1.84.114 350.1.13.10 4.2.7.2.686 [id number] [facility] 2021-01-22 08:00:00 2021-01-22 08:00:00 Outpatient R NAOMIE BECK DO [facility] [id number] [facility] 2021-01-22 00:00:00 2021-01-22 00:00:[address] Rueda Hudson [facility] 1..114 350.1.13.10 4.2.7.2.686 [id number] [facility] 2021-01-18 10:30:00 2021-01-18 11:11:44 Outpatient R RADHA STAHL SHIWYLupe [facility] [id number] [facility] 2021-01-18 10:30:00 2021-01-18 11:11:44 Outpatient R RADHA STAHL SHIWYLupe [facility] [id number] [facility] 2021-01-18 10:21:37 2021-01-18 11:11:44 Office Visit Radha Stahl [facility] 1.84.114 350.1.13.10 4.2.7.2.686 [id number] [facility] 2021-01-12 00:00:00 2021-01-12 00:00:00 Refill DesmondIsreal delarosa [facility] Zhao?[facility] 1.840.114 350.1.13.10 4.2.7.2.686 [id number] [facility] 2021-01-12 00:00:00 2021-01-12 00:00:00 Telephone Will dunbar, Naomie Andrade [facility] 1.114 350.1.13.10 4.2.7.2.686 [id number] [facility] 2021-01-12 00:00:00 2021-01-12 00:00:00 Orders Only Doctor Unassigned, [place] [facility] 1.114 350.1.13.10 4.2.7.2.686 [id number] [facility] 2021-01-09 00:00:00 2021-01-09 00:00:00 Isreal Warren [facility] 1.114 350.1.13.10 4.2.7.2.686 [id number] [facility] 2020-12-29 13:40:00 2020-12-29 13:59:22 Outpatient R ANGELES HOYOSJOSE [facility] [id number] [facility] 2020-12-29 13:36:44 2020-12-29 13:59:22 [facility] 1.84.114 350.1.13.10 4.2.7.2.686 [id number] [facility] 2020-12-29 12:40:00 2020-12-29 12:40:00 Outpatient BRAN SOTO [facility] [id number] [facility] 2020-12-29 12:34:50 2020-12-29 12:35:03 Imm/Inj Visit Nurse, Victoria Podiamond Immunizatio Bran Navarro [facility] Building 1.84.114 350.1.13.10 4.2.7.2.686 [id number] [facility] 2020-12-11 14:30:24 2020-12-11 23:59:00 Outpatient R ISREAL LOGAN [facility] [id number] [facility] 2020-12-11 14:30:00 2020-12-11 23:59:00 Hospital Encounter Isreal Logan [facility] 1.114 350.1.13.10 4.2.7.2.686 [id number] [facility] 2020-11-30 07:39:24 2020-11-30 09:31:06 Office Visit Parminder Rueda Muhammad A [facility] [[email or web address]] MULTISPEC [facility] 1.114 350.1.13.10 4.2.7.2.686 [id number] [facility] 2020-11-30 08:00:00 2020-11-30 08:00:00 Outpatient R KATARZYNA COBURN [facility] [id number] [facility] 2020-11-30 00:00:00 2020-11-30 00:00:00 Orders Only Doctor Unassigned, [place] [facility] .114 350.1.13.10 4.2.7.2.686 [id number] [facility] 2020-11-28 00:00:00 2020-11-28 00:00:00 Telephone Katarzyna Coburn [facility] [[email or web address]] MULTISPEC [facility] 1.114 350.1.13.10 4.2.7.2.686 [id number] [facility] 2020-11-21 17:44:05 2020-11-21 23:59:00 Hospital Encounter Macho Ha [facility] 1.2.840.114 350.1.13.10 4.2.7.2.686 [id number] [facility] 2020-11-21 17:43:47 2020-11-21 17:43:47 Hospital Encounter Leland [facility] 1.2.840.114 350.1.13.10 4.2.7.2.686 [id number] [facility] 2020-11-21 17:43:47 2020-11-21 17:43:47 Outpatient R MACHO HA [facility] [id number] [facility] 2020-11-21 17:43:47 2020-11-21 17:43:47 Outpatient R LELAND [facility] [id number] [facility] 2020-11-21 17:43:28 2020-11-21 17:43:28 Hospital Encounter Leland [facility] 1.2.840.114 350.1.13.10 4.2.7.2.686 [id number] [facility] 2020-11-21 16:46:28 2020-11-21 17:25:39 Urgent Care Macho Hajica, [facility] Office Building One 1.2840.114 350.1.13.10 4.2.7.2.686 [id number] [facility] 2020-11-21 15:58:15 2020-11-21 16:31:56 Office Visit Jasmyne Roper [facility] Building 1.2.840.114 350.1.13.10 4.2.7.2.686 [id number] [facility] 2020-11-21 16:00:00 2020-11-21 16:00:00 Outpatient R JASMYNE ROPER [facility] [id number] [facility] 2020-11-14 13:00:00 2020-11-14 13:00:00 Outpatient R GLASER RAFAELA [facility] [id number] [facility] 2020-11-09 00:00:00 2020-11-09 00:00:00 Outpatient R ISRAEL LOGAN [facility] [id number] [facility] 2020-11-07 07:20:00 2020-11-07 10:19:00 Hospital Encounter Jasmyne Rpoer [facility] 1.0.114 350.1.13.10 4.2.7.2.686 [id number] [facility] 2020-11-07 08:30:00 2020-11-07 09:25:00 Surgery Jasmyne Roper [facility] 1..114 350.1.13.10 4.2.7.2.686 [id number] [facility] 2020-11-07 00:00:00 2020-11-07 00:00:00 Orders Only Doctor Unassigned, [place] [facility] 1..114 350.1.13.10 4.2.7.2.686 [id number] [facility] 2020-11-06 08:45:00 2020-11-06 08:45:00 Outpatient R JASMYNE ROPER [facility] [id number] [facility] 2020-11-03 00:00:00 2020-11-03 00:00:00 Telephone Isreal Logan [facility] Office Building One .114 350.1.13.10 4.2.7.2.686 [id number] [facility] 2020-11-02 10:44:38 2020-11-02 12:04:09 Office Visit Isreal Logan [facility] Office Building One 1.2.840.114 350.1.13.10 4.2.7.2.686 [id number] [facility] 2020-11-02 11:40:34 2020-11-02 12:00:34 Bending Roll Hand Visit Lab, [facility] Pob Nury PiedraDesmond, Isreal Nelson [facility] Office Building One 1.114 350.1.13.10 4.2.7.2.686 [id number] [facility] 2020-11-02 10:45:00 2020-11-02 10:45:00 Outpatient R ISREAL LOGAN [facility] [id number] [facility] 2020-10-26 12:56:19 2020-10-26 13:50:38 Office Visit Jasmyne Roper [facility] Building 1.114 350.1.13.10 4.2.7.2.686 [id number] [facility] 2020-10-26 13:00:00 2020-10-26 13:00:00 Outpatient R JASMYNE ROPER [facility] [id number] [facility] 2020-10-26 00:00:00 2020-10-26 00:00:00 Prep For Surgery Brenda Raphael [facility] Building 1.114 350.1.13.10 4.2.7.2.686 [id number] [facility] 2020-09-28 13:52:52 2020-09-28 14:52:50 Office Visit Gian Appiah [facility] Office Building One 1.114 350.1.13.10 4.2.7.2.686 [id number] [facility] 2020-09-28 14:00:00 2020-09-28 14:00:00 Outpatient R GIAN APPIAH [facility] [id number] [facility] 2020-08-25 00:00:00 2020-08-25 00:00:00 Telephone Isreal Logan [facility] Office Building One 1.0.114 350.1.13.10 4.2.7.2.686 [id number] [facility] 2020-08-24 00:00:00 2020-08-24 00:00:00 Refill Isreal Logan [facility] Office Building One 1.0.114 350.1.13.10 4.2.7.2.686 [id number] [facility] 2020-08-14 15:30:22 2020-08-14 23:59:00 Hospital Encounter Gian Appiah [facility] 1.0.114 350.1.13.10 4.2.7.2.686 [id number] [facility] 2020-08-14 14:50:07 2020-08-14 15:10:07 Urgent Care Provider, [facility] B[facility] One 1.0.114 350.1.13.10 4.2.7.2.686 [id number] [facility] 2020-08-14 15:00:00 2020-08-14 15:00:00 Outpatient R [facility] [id number] [facility] 2020-08-14 00:00:00 2020-08-14 00:00:00 Orders Only Doctor Unassigned, [place] [facility] 1.20.114 350.1.13.10 4.2.7.2.686 [id number] [facility] 2020-08-04 00:00:00 2020-08-04 00:00:00 Telephone [facility] 1.114 350.1.13.10 4.2.7.2.686 [id number] [facility] 2020-07-21 08:15:00 2020-07-21 08:15:00 Outpatient R NAOMIE BECK DO [facility] [id number] [facility] 2020-07-21 07:55:44 2020-07-21 08:10:44 Bending Roll Hand Visit Pob, Adc Lab Main Naomie Beck do [facility] Building 1..114 350.1.13.10 4.2.7.2.686 [id number] [facility] 2020-07-20 07:52:35 2020-07-20 09:06:31 Office Visit Naomie Beck do, Muhammad [facility] 1.114 350.1.13.10 4.2.7.2.686 [id number] [facility] 2020-07-20 08:00:00 2020-07-20 08:00:00 Outpatient R KATARZYNA COBURN [facility] [id number] [facility] 2020-07-20 00:00:00 2020-07-20 00:00:00 Letter (Out) Doctor Unassigned, [place] [facility] 1..114 350.1.13.10 4.2.7.2.686 [id number] [facility] 2020-07-18 00:00:00 2020-07-18 00:00:00 Telephone Vernon Griggs [facility] Building 1..114 350.1.13.10 4.2.7.2.686 [id number] [facility] 2020-07-17 11:36:23 2020-07-17 11:51:23 Bending Roll Hand Visit Pob, Adc Lab Main [facility] 1.114 350.1.13.10 4.2.7.2.686 [id number] [facility] 2020-07-17 11:45:00 2020-07-17 11:45:00 Outpatient R MARLYN [facility] [id number] [facility] 2020-07-10 00:00:00 2020-07-10 00:00:00 Telephone Naomie Beck do [facility] [[email or web address] MULTISPEC [facility]TY [facility] 1.114 350.1.13.10 4.2.7.2.686 [id number] [facility] 2020-06-05 09:00:00 2020-06-05 09:00:00 [facility] [id number] 2020-06-05 00:00:00 2020-06-05 00:00:00 Refill [facility] Beck [facility] 1.114 350.1.13.10 4.2.7.2.686 [id number] [facility] 2020-06-01 10:00:14 2020-06-01 11:11:07 Office Visit Naomie Beck do, Muhammad A [facility] [[email or web address] MULTISPEC [facility] 1.114 350.1.13.10 4.2.7.2.686 [id number] [facility] 2020-06-01 10:00:00 2020-06-01 10:00:00 Outpatient KATARZYNA VIDAL [facility] [id number] [facility] 2020-06-01 08:48:48 2020-06-01 09:03:48 Bending Roll Hand Visit Vtc-Lab Katarzyna Coburn [facility] 1.84.114 350.1.13.10 4.2.7.2.686 [id number] [facility] 2020-05-29 13:30:00 2020-05-29 13:30:00 Outpatient R [facility] [id number] [facility] 2020-05-22 15:54:31 2020-05-22 16:54:31 Bending Roll Hand Visit Pc, [facility] 1.2.840.114 350.1.13.10 4.2.7.2.686 [id number] [facility] 2020-05-22 16:00:00 2020-05-22 16:00:00 Outpatient R [facility] [id number] [facility] 2020-05-12 00:00:00 2020-05-12 00:00:00 [facility] 1.2.840.114 350.1.13.10 4.2.7.2.686 [id number] [facility] 2020-05-09 15:36:13 2020-05-09 16:14:31 [facility] 1..840.114 350.1.13.10 4.2.7.2.686 [id number] [facility] 2020-05-09 16:00:00 2020-05-09 16:00:00 [facility] [id number] [facility] 2020-05-04 12:00:00 2020-05-04 12:00:00 Outpatient RHEA SIMPSON [facility] [id number] [facility] 2020-05-01 14:58:17 2020-05-01 16:21:19 Office Visit Isreal Logan [facility] Office Building One 1.114 350.1.13.10 4.2.7.2.686 [id number] [facility] 2020-05-01 15:50:40 2020-05-01 16:10:40 Bending Roll Hand Visit Lab, Adc Fam Pob I Isreal Logan [facility] Office Building One 1..114 350.1.13.10 4.2.7.2.686 [id number] [facility] 2020-05-01 15:00:00 2020-05-01 15:00:00 Outpatient Matt LOGAN ISREAL [facility] [id number] [facility] 2020-04-22 00:00:00 2020-04-22 00:00:00 Telephone Brenda Raphael [facility] 1..114 350.1.13.10 4.2.7.2.686 [id number] [facility] 2020-04-19 13:49:11 2020-04-19 14:35:45 Office Visit Brenda Raphael [facility] 1.84.114 350.1.13.10 4.2.7.2.686 [id number] [facility] 2020-04-19 14:00:00 2020-04-19 14:00:00 Outpatient BRENDA BROOKS [facility] [id number] [facility] 2020-04-18 00:00:00 2020-04-18 00:00:[address] [facility] 1.2.840.114 350.1.13.10 4.2.7.2.686 [id number] [facility] 2020-04-17 00:00:00 2020-04-17 00:00:00 Transition of Care Haven Bass 1.2.840.114 350.1.13.10 4.2.7.2.686 [id number] [facility] 2020-04-13 08:07:00 2020-04-14 13:15:00 Hospital Encounter Regla Crooks [facility] 1.2840.114 350.1.13.10 4.2.7.2.686 [id number] [facility] 2020-04-13 08:07:00 2020-04-14 13:15:00 Outpatient MORIS NAVARRO [facility] [id number] [facility] 2020-04-13 00:00:00 2020-04-13 00:00:00 RefAbner Deleon [facility] 1..114 350.1.13.10 4.2.7.2.686 [id number] [facility] 2020-03-16 00:00:00 2020-03-16 00:00:00 Refill Isreal Logan [facility] 1.20.114 350.1.13.10 4.2.7.2.686 [id number] [facility] 2020-03-12 00:00:00 2020-03-12 00:00:00 Refill Isreal Logan [facility] 1.2840.114 350.1.13.10 4.2.7.2.686 [id number] [facility] 2019-12-01 00:00:00 2019-12-01 00:00:00 Refill Isreal Logan [facility] 1.840.114 350.1.13.10 4.2.7.2.686 [id number] [facility] 2019-11-17 14:40:00 2019-11-17 14:40:00 Outpatient R [facility] [id number] [facility] 2019-10-22 15:15:00 2019-10-22 15:15:00 Outpatient R EVER CACERES [facility] [id number] [facility] 2019-10-22 14:59:42 2019-10-22 15:14:42 Office Visit Ever Caceres [facility] .840.114 350.1.13.10 4.2.7.2.686 [id number] [facility] 2019-10-12 00:00:00 2019-10-12 00:00:00 Telephone Isreal Logan [facility] 1.840.114 350.1.13.10 4.2.7.2.686 [id number] [facility] 2019-10-08 00:00:00 2019-10-08 00:00:00 Telephone Isreal Logan [facility] 1.840.114 350.1.13.10 4.2.7.2.686 [id number] [facility] 2019-10-06 00:00:00 2019-10-06 00:00:00 Telephone DesmondIsreal delarosa [facility] 1.840.114 350.1.13.10 4.2.7.2.686 [id number] [facility] 2019-10-06 00:00:00 2019-10-06 00:00:00 Telephone Norma Weber [facility] Office Building One 1.114 350.1.13.10 4.2.7.2.686 [id number] [facility] 2019-10-04 10:26:47 2019-10-04 10:41:47 Bending Roll Hand Visit Lab, Adc Fam Pob I Unknown, Attending [facility] Building One 1.114 350.1.13.10 4.2.7.2.686 [id number] [facility] 2019-10-04 10:15:00 2019-10-04 10:15:00 Outpatient R UNKNOWN, ATTENDING [facility] [id number] [facility] 2019-09-29 14:15:00 2019-09-29 14:15:00 Outpatient R JUAN FRANCISCO FLORES [facility] [id number] [facility] 2019-09-21 07:55:28 2019-09-24 10:45:31 Telemedici ne Visit Parminder Rueda do, Ann K N [facility] [[email or web address] 1. 350.1.13.10 4.2.7.2.686 [id number] [facility] 2019-09-21 09:00:00 2019-09-21 09:00:00 Outpatient R NAOMIE BECK DO [facility] [id number] [facility] 2019-09-21 00:00:00 2019-09-21 00:00:00 Telephone Isreal Logan [facility] Building 1.114 350.1.13.10 4.2.7.2.686 [id number] [facility] 2019-09-17 09:43:15 2019-09-17 22:48:02 Office Visit Ileana Cates [facility] [[email or web address] 1..114 350.1.13.10 4.2.7.2.686 [id number] [facility] 2019-09-17 11:22:17 2019-09-17 13:47:54 Bending Roll Hand Visit Pcp-Lab Ileana Cates [facility] [[email or web address] 1.840.114 350.1.13.10 4.2.7.2.686 [id number] [facility] 2019-09-17 10:00:00 2019-09-17 10:00:00 Outpatient R ILEANA CATES [facility] [id number] [facility] 2019-09-16 00:00:00 2019-09-16 00:00:[facility] 1..114 350.1.13.10 4.2.7.2.686 [id number] [facility] 2019-09-16 00:00:00 2019-09-16 00:00:00 [facility] 1.0.114 350.1.13.10 4.2.7.2.686 [id number] [facility] 2019-09-14 07:56:46 2019-09-14 15:55:43 [facility]medici ne [facility] 1..114 350.1.13.10 4.2.7.2.686 [id number] [facility] 2019-09-14 15:30:00 2019-09-14 15:30:00 Outpatient R ISREAL LOGAN [facility] [id number] [facility] 2019-09-10 00:00:00 2019-09-10 00:00:00 Transition of Care Luh Mak 1.0.114 350.1.13.10 4.2.7.2.686 [id number] [facility] 2019-09-07 06:51:10 2019-09-09 15:37:00 Hospital Encounter Anthony Mcnamara, Khurram Mays [facility] ([facility]) 1.114 350.1.13.10 4.2.7.2.686 [id number] [facility] 2019-09-07 06:51:10 2019-09-09 15:37:00 Inpatient X DANIEL KHURRAM [facility] [id number] [facility] 2019-09-09 00:00:00 2019-09-09 00:00:00 Telephone Will dunbar, Naomie Andrade [facility] [[email or web address] 1.114 350.1.13.10 4.2.7.2.686 [id number] [facility] 2019-09-07 00:00:00 2019-09-07 00:00:00 Orders Only Doctor Unassigned, [place] [facility] 1.114 350.1.13.10 4.2.7.2.686 [id number] [facility] 2019-08-31 00:00:00 2019-08-31 00:00:00 Transition of Care Yuki Ortiz 1.114 350.1.13.10 4.2.7.2.686 [id number] [facility] 2019-08-30 08:15:00 2019-08-30 08:15:00 Outpatient R ISREAL LOGAN [facility] [id number] [facility] 2019-08-30 07:05:23 2019-08-30 07:20:23 Telemedici ne Visit Isreal Logan [facility] 1.114 350.1.13.10 4.2.7.2.686 [id number] [facility] 2019-08-27 13:15:53 2019-08-28 18:40:00 Emergency Cristian Garcia Moris Hernandez [facility] 1.2.840.114 350.1.13.10 4.2.7.2.686 [id number] [facility] 2019-08-27 13:15:53 2019-08-28 18:40:00 Outpatient Fausto MORIS HERNANDEZ [facility] [id number] [facility] 2019-08-27 00:00:00 2019-08-27 00:00:00 Telephone Abner Rivera [facility] 1.2.840.114 350.1.13.10 4.2.7.2.686 [id number] [facility] 2019-08-27 00:00:00 2019-08-27 00:00:00 Orders Only Doctor Unassigned, [place] [facility] 1.2.840.114 350.1.13.10 4.2.7.2.686 [id number] [facility] 2019-08-25 08:54:41 2019-08-25 10:07:31 Urgent Care Paulo Diallo Pob1, Acute Care Clinic 1.2.840.1 13378.1.1 3.104.2.7 .3.754334 .8 [id number] [facility] 2019-08-25 09:00:00 2019-08-25 09:00:00 Outpatient R PAULO DIALLO [facility] [id number] [facility] 2019-08-25 00:00:00 2019-08-25 00:00:00 Travel 1.2.840.1 38523.1.1 3.104.2.7 .3.418286 .8 1.2.840.114 350.1.13.10 4.2.7.3.698 [id number] [facility] 2019-08-19 07:17:45 2019-08-19 10:01:19 Telemedici ne Visit Isreal Logan 1.2.840.1 58329.1.1 3.104.2.7 .3.385504 .8 [id number] [facility] 2019-08-19 09:15:00 2019-08-19 09:15:00 Outpatient R DESMONDJANES DELAROSANILSON [facility] [id number] [facility] 2019-08-16 00:00:00 2019-08-16 00:00:00 Telephone Paulo Diallo 1.2.840.1 79059.1.1 3.104.2.7 .3.747125 .8 [id number] [facility] 2019-08-16 00:00:00 2019-08-16 00:00:00 Nurse Triage Mookie Bhagat 1.2.840.1 55314.1.1 3.104.2.7 .3.272888 .8 [id number] [facility] 2019-08-14 00:00:00 2019-08-14 00:00:00 Telephone Mariah Turcios 1.2.840.1 61295.1.1 3.104.2.7 .3.782155 .8 [id number] [facility] 2019-08-14 00:00:00 2019-08-14 00:00:00 Telephone Isreal Logan 1.2.840.1 75191.1.1 3.104.2.7 .3.099924 .8 [id number] [facility] 2019-08-13 14:03:21 2019-08-13 23:59:00 Outpatient R PAULO DIALLO [facility] [id number] [facility] 2019-08-13 14:03:00 2019-08-13 23:59:00 Hospital Encounter Paulo Dilalo 1.2.840.1 88910.1.1 3.104.2.7 .3.273081 .8 [id number] [facility] 2019-08-13 12:51:53 2019-08-13 14:24:15 Urgent Care Breonna Bautista Pob1, Acute Care Clinic 1.2.840.1 31070.1.1 3.104.2.7 .3.117624 .8 [id number] [facility] 2019-08-13 09:25:40 2019-08-13 10:46:38 Telemedici ne Visit Breonna Bautista Hina, Provider 27 - Adult & Pedi Urgent 1.2.840.1 15350.1.1 3.104.2.7 .3.437063 .8 [id number] [facility] 2019-08-13 00:00:00 2019-08-13 00:00:00 Telephone Pcp, Patient Does Not Have A 1.2.840.1 32152.1.1 3.104.2.7 .3.933848 .8 [id number] [facility] 2019-08-13 00:00:00 2019-08-13 00:00:00 Telephone Erin Madera 1.2.840.1 62636.1.1 3.104.2.7 .3.294626 .8 [id number] [facility] 2019-07-27 08:28:05 2019-07-27 09:25:36 Office Visit Ever Caceres 1.2.840.1 37298.1.1 3.104.2.7 .3.092844 .8 [id number] [facility] 2019-07-27 08:45:00 2019-07-27 08:45:00 Outpatient EVER NUNEZ [facility] [id number] [facility] 2019-07-26 14:00:00 2019-07-26 14:00:00 Outpatient EVER NUNEZ [facility] [id number] [facility] 2019-07-16 09:17:13 2019-07-16 09:32:13 Bending Roll Hand Visit Katarzyna Coburn Bella, Adc Lab Main 1.0.1 42958.1.1 3.104.2.7 .3.890581 .8 [id number] [facility] 2019-07-16 09:15:00 2019-07-16 09:15:00 Outpatient R KATARZYNA COBURN [facility] [id number] [facility] 2019-07-16 00:00:00 2019-07-16 00:00:00 Orders Only Doctor Unassigned, [place] 1.0.1 99887.1.1 3.104.2.7 .3.389723 .8 [id number] [facility] 2019-06-24 00:00:00 2019-06-24 00:00:00 Refill Isreal Logan A 1.0.1 69084.1.1 3.104.2.7 .3.910010 .8 [id number] [facility] 2019-06-14 08:00:00 2019-06-14 09:39:14 Outpatient R NAOMIE BECK DO [facility] [id number] [facility] 2019-06-14 07:42:14 2019-06-14 09:39:14 Office Visit Naomie Beck do 1.0.1 89693.1.1 3.104.2.7 .3.078620 .8 [id number] [facility] 2019-06-13 00:00:00 2019-06-13 00:00:00 Refill Isreal Logan A 1.840.1 55422.1.1 3.104.2.7 .3.237129 .8 [id number] [facility] 2019-06-08 00:00:00 2019-06-08 00:00:00 Case Management Isreal Logan 1.840.1 87941.1.1 3.104.2.7 .3.951958 .8 [id number] [facility] 2019-06-07 00:00:00 2019-06-07 00:00:00 Telephone Isreal Logan 1.2.840.1 03895.1.1 3.104.2.7 .3.734222 .8 [id number] [facility] 2019-06-03 00:00:00 2019-06-03 00:00:00 Case Management Isreal Logan 1.2.840.1 83331.1.1 3.104.2.7 .3.666420 .8 [id number] [facility] 2019-06-01 10:51:00 2019-06-01 23:59:00 Hospital Encounter Isreal Logan 1.2.840.1 60712.1.1 3.104.2.7 .3.473523 .8 [id number] [facility] 2019-05-31 09:02:58 2019-05-31 09:17:58 Bending Roll Hand Visit Desmond Janesnilson Blanco, [place] Lab Main 1.2.840.1 13321.1.1 3.104.2.7 .3.765216 .8 [id number] [facility] 2019-05-31 07:56:06 2019-05-31 08:42:37 Office Visit Desmond Janesnilson Damon 1.2.840.1 92103.1.1 3.104.2.7 .3.978297 .8 [id number] [facility] 2019-05-21 00:00:00 2019-05-21 00:00:00 Refill Isreal Logan [facility] Office Building One 1..840.114 350.1.13.10 4.2.7.2.686 [id number] [facility] 2019-05-14 08:40:42 2019-05-14 11:31:55 Ancillary Visit Olya Powers [facility] Building 1..114 350.1.13.10 4.2.7.2.686 [id number] [facility] 2019-05-13 14:46:00 2019-05-13 23:59:00 Hospital Encounter Zari Mehta [facility] 1.2840.114 350.1.13.10 4.2.7.2.686 [id number] [facility] 2019-05-13 00:00:00 2019-05-13 00:00:00 Orders Only Doctor Unassigned, [place] [facility] 1.2840.114 350.1.13.10 4.2.7.2.686 [id number] [facility] 2019-05-07 10:30:00 2019-05-07 11:32:31 Outpatient R ZARI MEHTA [facility] [id number] [facility] 2019-04-30 10:52:18 2019-04-30 23:59:00 Outpatient R ISREAL LOGAN [facility] [id number] [facility] 2019-04-12 14:32:54 2019-04-12 23:59:00 Outpatient JANES SCHWARTZDAMON [facility] [id number] [facility] 2018-12-31 00:00:00 2018-12-31 00:00:00 Letter (Out) [facility] 1..114 350.1.13.10 4.2.7.2.686 [id number] [facility] 2018-12-25 16:37:53 2018-12-25 16:52:53 Bending Roll Hand Visit 1, Adc Lab Isreal Logan [facility] 1.0.114 350.1.13.10 4.2.7.2.686 [id number] [facility] 2018-12-25 15:36:08 2018-12-25 16:25:20 Office Visit Isreal Logan [facility] Juan Ramon [facility] Office Building One 1.2.840.114 350.1.13.10 4.2.7.2.686 [id number] [facility] 2018-12-25 00:00:00 2018-12-25 00:00:00 Orders Only Doctor Unassigned, [place] [facility] 1.2.840.114 350.1.13.10 4.2.7.2.686 [id number] [facility] 2018-11-16 00:00:00 2018-11-16 00:00:00 Orders Only Doctor Unassigned, [place] [facility] 1.2.840.114 350.1.13.10 4.2.7.2.686 [id number] [facility] Results Test Description Test Time Test Comments Results Result Comments Source IR Biopsy abdomen retroperitoneal percutaneous with ultrasound 2024-12 16:36:2 5 EXAMINATION: CT-GUIDED PERCUTANEOUS PERINEPHRIC MASS BIOPSY. HISTORY: 69-year-old male with right lower quadrant renal transplantperinephric mass of unknown etiology. ATTENDING: Dr. Shira NinoRESIDENT: Dr. Lopez SEDATION: Moderate sedation was administered using IV Versed and fentanylunder the attending physician's direction and continuous monitoring by atrained nurse specialist who was independent from those actually performingthe procedure. Please refer to [facility] nursing order sheet for total sedationtime. Local anesthesia: 1% lidocaine TECHNIQUE: The risks, benefits and alternatives were discussed and informedconsent was obtained. Prior to beginning the procedure, [place] Protocolwas performed to confirm the patient's identity and the planned procedure.Maximum sterile barriers including cap, mask, hand hygiene, sterile gloves,sterile gown, large sterile drape and cutaneous antisepsis were used. The patient was prepped and draped in the usual sterile manner. The rightlower quadrant perinephric mass was localized using CT guidance. A saferoute, free of overlying structures was identified. The area over this sitewas anesthetized with 1% lidocaine and a small skin incision was made. A 17-gauge coaxial needle was advanced into the right lower quadrantperinephric mass using real-time CT guidance. 2 x 22 gauge FNAs wereperformed within the mass. Following this, an 18-gauge core biopsy devicewas advanced into the mass through the coaxial needle using CT guidance. Atotal of 6 passes were made. These [facility] A cytopathologist was onsite for rapid evaluation. At the end of the procedure, the biopsy set wasremoved and pressure held until hemostasis was achieved. A post procedureultrasound was performed which showed no adverse complications. ESTIMATED BLOOD LOSS: Minimal. CONDITION: Stable. DISCHARGE TO: Patient care division. FINDINGS: The RLQ transplant perinephric mass was noted containing areas of fatdensity. Placement of the coaxial needle within the soft tissue componentwas confirmed via CT imaging. [facility] IR Placement nephro catheter percutaneous includes diagnostic nephrogram 2024-12 15:19:0 9 PROCEDURES: 1. ?RLQ TRANSPLANT ANTEGRADE NEPHROSTOGRAM2. ?RLQ TRANSPLANt ULTRASOUND AND FLUOROSCOPY-GUIDED PERCUTANEOUSNEPHROSTOMY CATHETER PLACEMENT. HISTORY: Right lower quadrant transplant kidney with compressivehydronephrosis ATTENDING: Dr. AyonIDENT: Dr. Lopez MEDICATIONS: Conscious sedation with IV Versed and fentanyl under theattending physician's direction and continuous monitoring by a trainednurse specialist who was independent from those actually performing theprocedure. Please refer to [facility] nursing order sheet for the sedation time.Local anesthesia: 1% lidocaine. PRE-PROCEDURE ANTIBIOTIC: Ciprofloxacin RADIATION DOSE: 31.8 mGy TECHNIQUE: Signed, informed consent was obtained from the patient afterdiscussing the risks and benefits of the procedure. [place] protocoltimeout was performed verifying correct patient, correct site, and correctprocedure. Images were archived to PACS. Patient was prepped and draped insterile fashion. Ultrasound and fluoroscopic guided access was obtained into a mid polerenal calyx using a 22G needle. Contrast was injected to outline thecollecting system and the ureter. A guide wire was inserted into the ureterusing this access with fluoroscopy guidance. Needle was exchanged for theAccustick sheath, which was then exchanged for an 035 J-wire. The tract wasthen serially dilated . A 8 Liberian Liberian pigtail catheter was insertedinto the pelvicalyceal system using this dilated tract over the guide wire.The guide wire was removed and the loop of pigtail catheter was formed. Thecatheter was then sutured to the skin. No immediate complications wereobserved. Patient withstood the procedure well. FINDINGS:Moderate left hydronephrosis, decompressed with nephrostomy catheter.Ureter shows passage of contrast to the UVJ with no significant filling ofthe bladder and questionable stenosis near the anastomosis.. [facility] IR Exchange nephrostomy catheter 2024-12 15:17:3 2 PROCEDURES: 1. ?RIGHT SIDED TRANSPLANT KIDNEY ANTEGRADE NEPHROSTOGRAM2. ?RIGHT SIDED ULTRASOUND AND FLUOROSCOPY-GUIDED PERCUTANEOUS NEPHROSTOMYCATHETER PLACEMENT.3. ?DYNACT WITH RECONSTRUCTION AT INDEPENDENT WORKSTATION CPT 84861 + 960424. ?RIGHT SIDED PCN TRACT EMBOLIZATION WITH GEL FOAM HISTORY: Transplant kidney initially presenting with hydronephrosis s/p PCNplacement. Now with dislodged PCN. ATTENDING: Dr. Howard Cabello,RESIDENT: Dr. Katie Hawley MEDICATIONS: Conscious sedation with IV Versed and fentanyl under theattending physician's direction and continuous monitoring by a trainednurse specialist who was independent from those actually performing theprocedure. Please refer to [facility] nursing order sheet for the sedation time.Local anesthesia: 1% lidocaine.FLUOROSCOPY TIME: 1.9 minutes.REFERENCE AIR KERMA: 17.5 mGy TECHNIQUE/FINDINGS: Signed, informed consent was obtained from the patientafter discussing the risks and benefits of the procedure. Universalprotocol timeout was performed verifying correct patient, correct site, andcorrect procedure. Images were archived to PACS. Patient was prepped anddraped in sterile fashion. A DYNACT was performed to first evaluate the old PCN which was retractedand surrounded by small hematoma. The decision was made to leave the PCN inplace and inject 3cc gel foam around the tract to aid hemostasis. Next, ultrasound and fluoroscopic guided access was obtained into a lowerrenal calyx using a 22G needle. Contrast was injected to outline thecollecting system and the ureter. A guide wire was inserted into the ureterusing this access with fluoroscopy guidance. Needle was exchanged for theAccustick sheath, which was then exchanged for an 035 J-wire. The tract wasthen serially dilated . A 10 Liberian pigtail catheter was inserted into thepelvicalyceal system using this dilated tract over the guide wire. Theguide wire was removed and the loop of pigtail catheter was formed.Approximately 80cc of sanguinous fluid was aspirated. Final nephrostogramredemonstrates redemonstrates high grade narrowing near the UVJ with smallvolume of clots. ?The catheter was then sutured to the skin. No immediatecomplications were observed. Patient withstood the procedure well. [facility] with [id number] 11:28:14* Test Item Value Reference Range Interpretation Comme nts WBC (test code = 6690-2) 6.42 4.20-10.70 RBC (test code = 789-8) 2.71 4.26-5.52 L HGB (test code = 718-7) 7.8 g/dL 12.2-16.4 L HCT (test code = 4544-3) 24.8 % 38.4-49.3 L MCV (test code = 787-2) 91.5 fL 81.7-95.6 MCH (test code = 785-6) 28.8 pg 26.1-32.7 MCHC (test code = 786-4) 31.5 g/dL 31.2-35.0 RDW-SD (test code = 20649-6) 48 fL 38.5-51.6 RDW-CV (test code = 788-0) 14.7 % 12.1-15.4 PLT (test code = 777-3) 426 150-328 H MPV (test code = 68690-3) 10.3 fL 9.8-13.0 NRBC/100 WBC (test code = 4976761178) 0.9 0.0-10.0 NRBC x10^3 (test code = 7071624834) 0.06 See_Comment [Automated messa ge] The system which generated this result transmitted reference range: 10*3/?L. The reference range was not used to interpret this result as normal/abnormal. GRAN MAT (NEUT) % (test code = 770-8) 67.8 % IMM GRAN % (test code = 2651637742) 2.6 % LYMPH % (test code = 736-9) 13.9 % MONO % (test code = 5905-5) 12.3 % EOS % (test code = 713-8) 2.3 % BASO % (test code = 706-2) 1.1 % GRAN MAT x10^3(ANC) (test code = 3046062117) 4.35 10*3/uL 1.99-6.95 IMM GRAN x10^3 (test code = 4492681530) 0.17 10*3/uL 0.00-0.06 H LYMPH x10^3 (test code = 731-0) 0.89 10*3/uL 1.09-3.23 L MONO x10^3 (test code = 742-7) 0.79 10*3/uL 0.36-1.02 EOS x10^3 (test code = 711-2) 0.15 10*3/uL 0.06-0.53 BASO x10^3 (test code = 704-7) 0.07 10*3/uL 0.01-0.09 GIANT PLATELETS (test code = 5908-9) Present See_Comment A [Automated Abcama ge] The system which generated this result transmitted reference range: (none). The reference range was not used to interpret this result as normal/abnormal. Lab Interpretation (test code = 66480-6) Abnormal [facility]2025-[facility] 11:23:03* Test Item Value Reference Range Interpretation Comme nts PHOSPHORUS (test code = 9218514232) 2.8 mg/dL 2.5-5.0 Lab Interpretation (test cod e = 30478-7) Normal [facility]esium2025-09-07 11:23:03* Test Item Value Reference Range Interpretation Comme nts MAGNESIUM (test code = 6720658593) 1.8 mg/dL 1.7-2.4 Lab Interpretation (test cod e = 04832-2) Normal [facility] (NA, K, CL, CO2, GLUCOSE, BUN, CREATININE, CA)2025-01-02 11:23:03* Test Item Value Reference Range Interpretation Comme nts NA (test code = 8992114437) 140 mmol/L 135-145 K (test code = 5220164492) 3.9 mmol/L 3.5-5.0 CL (test code = 3965155391) 110 mmol/L 98-108 H CO2 TOTAL (test code = 7142704685) 23 mmol/L 23-31 AGAP (test code = 1497928789) 7 2-16 BUN (test code = 4043860960) 12 mg/dL 7-23 GLUCOSE (test code = 5191320023) 106 mg/dL 70-110 CREATININE (test code = 2160-0) 1.58 mg/dL 0.60-1.25 H CALCIUM (test code = 0872600507) 9.9 mg/dL 8.6-10.6 eGFR (test code = 75384-7) 47.4 mL/min/1.73m2 CKD-EPI eGFR (2020). Assuming creatinine has been stable day-to-day for at least three months, the eGFR indicates Category G3a (45 - 59 mL/min/1.73 m2) Lab Interpretation (test code = 35762-7) Abnormal [facility] HospitalIonized [id number] 10:54:28* Test Item Value Reference Range Interpretation Comme nts IONIZED CA (test code = 2842761684) 5.4 mg/dL 4.50-5.30 H PH SERUM (test code = 0453109785) 7.46 7.35-7.45 H QUES Lab Interpretation (test cod e = 23007-2) Abnormal [facility] HospitalTacrolimus, [id number] 15:43:00* Test Item Value Reference Range Interpretation Comme nts FK 506 (test code = 2281988592) 5 ng/mL MARLENE (test code = MARLENE) [...] ?(>12 mo) ? ?8-10 Method by: ?Chemiflex, Canvas Cutter Hand i1000 [facility] with [id number] 12:01:18* Test Item Value Reference Range Interpretation Comme nts WBC (test code = 6690-2) 5.86 4.20-10.70 RBC (test code = 789-8) 2.62 4.26-5.52 L HGB (test code = 718-7) 7.6 g/dL 12.2-16.4 L HCT (test code = 4544-3) 24.1 % 38.4-49.3 L MCV (test code = 787-2) 92 fL 81.7-95.6 MCH (test code = 785-6) 29 pg 26.1-32.7 MCHC (test code = 786-4) 31.5 g/dL 31.2-35.0 RDW-SD (test code = 36872-7) 48.6 fL 38.5-51.6 RDW-CV (test code = 788-0) 14.6 % 12.1-15.4 PLT (test code = 777-3) 378 150-328 H MPV (test code = 18696-4) 10.6 fL 9.8-13.0 NRBC/100 WBC (test code = [id number]) 1.4 0.0-10.0 NRBC x10^3 (test code = [id number]) 0.08 See_Comment [Automated messa ge] The system which generated this result transmitted reference range: 10*3/?L. The reference range was not used to interpret this result as normal/abnormal. GRAN MAT (NEUT) % (test code = 770-8) 65 % IMM GRAN % (test code = [id number]) 3.8 % LYMPH % (test code = 736-9) 14.3 % MONO % (test code = 5905-5) 13.5 % EOS % (test code = 713-8) 2.4 % BASO % (test code = 706-2) 1 % GRAN MAT x10^3(ANC) (test code = 3465746279) 3.81 10*3/uL 1.99-6.95 IMM GRAN x10^3 (test code = 0667589002) 0.22 10*3/uL 0.00-0.06 H LYMPH x10^3 (test code = 731-0) 0.84 10*3/uL 1.09-3.23 L MONO x10^3 (test code = 742-7) 0.79 10*3/uL 0.36-1.02 EOS x10^3 (test code = 711-2) 0.14 10*3/uL 0.06-0.53 BASO x10^3 (test code = 704-7) 0.06 10*3/uL 0.01-0.09 Lab Interpretation (test code = 13362-9) [facility] 11:46:55* Test Item Value Reference Range Interpretation Comme nts PHOSPHORUS (test code = 0429797921) 3 mg/dL 2.5-5.0 Lab Interpretation (test cod e = 08021-8) Normal [facility] HospitalMagnesium2025-09-06 11:46:55* Test Item Value Reference Range Interpretation Comme nts MAGNESIUM (test code = 1484567324) 1.9 mg/dL 1.7-2.4 Lab Interpretation (test cod e = 28904-6) Normal [facility] HospitalBasi Metabolic Panel (NA, K, CL, CO2, GLUCOSE, BUN, CREATININE, CA)2025-01-01 11:46:54* Test Item Value Reference Range Interpretation Comme nts NA (test code = 2695798178) 139 mmol/L 135-145 K (test code = 1094293691) 4 mmol/L 3.5-5.0 CL (test code = 3940933796) 110 mmol/L 98-108 H CO2 TOTAL (test code = 4339503867) 22 mmol/L 23-31 L AGAP (test code = 8395260765) 7 2-16 BUN (test code = 8477118830) 13 mg/dL 7-23 GLUCOSE (test code = 8875126506) 106 mg/dL 70-110 CREATININE (test code = 2160-0) 1.52 mg/dL 0.60-1.25 H CALCIUM (test code = 5164573673) 9.8 mg/dL 8.6-10.6 eGFR (test code = 13352-7) 49.6 mL/min/1.73m2 CKD-EPI eGFR (2020). Assuming creatinine has been stable day-to-day for at least three months, the eGFR indicates Category G3a (45 - 59 mL/min/1.73 m2) Lab Interpretation (test code = 73721-4) [facility]normal [facility] HospitalIonized [id number] 11:45:54* Test Item Value Reference Range Interpretation Comme nts IONIZED CA (test code = 6510987956) 5.3 mg/dL 4.50-5.30 PH SERUM (test code = 9866325250) 7.42 7.35-7.45 Lab Interpretation (test cod e = 47514-7) Normal [facility] HospitalMR Abdomen w wo yoqbdkzb9702-79-71 17:25:32MR ABDOMEN W WO CONTRAST COMPARISON: CT abdomen and pelvis dated 12/22/2024. Multiple prior CT scansdating back to 09/16/2014, ultrasound kidney 12/23/2024 INDICATION: Transplant kidney mass seen on prior CT. History of transplantin 2004. TECHNIQUE: Multiplanar, multisequence MR imaging of the abdomenwasacquired prior to and following the administration of gadolinium basedcontrast. The intravenous contrast leak during the exam, therefore postcontrast imaging are not diagnostic. FINDINGS: Lower chest: ?Marked cardiomegaly is noted. Hepatobiliary: The liver is normal in size and appearance. ?Normal signalcharacteristic. Multiple subcentimeter T2 hyperintense lesions are noted inthe right hepatic lobe, too small to characterize but likely representcysts. The gallbladder is surgically absent. The common bile duct is dilated,measuring up to 9 mm, most likely related to postcholecystectomy reservoirphenomenon. Spleen: Normal size. No focal lesion. Pancreas: Normal in appearance. Pancreatic duct is normal in diameter. Adrenal glands: Unremarkable Kidneys: The bilateral kasaan kidneys are surgically absent. A well-demarcated large lobulated heterogenous predominantly T1/B6ykhjbzozjpsp ?massis redemonstrated in the medial aspect of the transplantkidney, measuring 10.7 x 8 x 12.2 cm. Thereis a a thin rim which appearsto be contiguous with parenchyma and may represent cortex of the kidneywhich is displaced secondary to mass. The full extent of the mass is notvisualized in the majority of the performed sequences however it it appearswell-defined and pushing the renal pelvis displacingthe renal sinus. Thereare different component of the mass including fat and soft tissue. The softtissue component which previously was multinodular now appearsconglomerated, spanning 10.5 cm in length. Secondary to contrast leak,enhancement pattern is not reliable on current exam however on priormultiphasic CT dated 04/15/2022, enhancement of the soft tissue componentsis noted. For example a component along the inferior aspect of the massmeasuring approximately 4.5 x 1.3 cm shows enhancement onCT in 2021.(17:90). A small foci of mild restricted diffusion are identified at thesoft tissue component. The mass compresses the transplant ureter ureter, which may participate inhydronephrosis of the transplant kidney. The ureter is not included. Themass also displaces the transplant vessels along their course into theexternal iliac artery, without causing significant vascular stenosis. Small volume T1 hyperintense material within collecting system, suggestiveof internal hemorrhage, probably secondary to recent nephrostomy tubeplacement. Multiple cortical and parapelvic T2 hyperintense lesions areseen throughout the transplant kidney, common duct without internalrepresenting cysts. There is mild thickening of the urothelium, which couldbe sequela of inflammation. A nephrostomy tube tract seen along the lateralaspect of the interpolar region which extend into the renal pelvis. Fewpunctate cortical T1 hyperintensities, suggestive of punctate hemorrhagiccysts. Gastrointestinal tract: Visualized portions of the GI tract appear normalin caliber. Lymphatics: No lymphadenopathy. Vasculature: Unremarkable Peritoneum: No ascites. Bone: No aggressive osseous abnormality.[facility] HospitalLipid Panel (63557)(Total Cholesterol, Triglycerides, HDL)2024-12-27 17:45:00* Test Item Value Reference Range Interpretation Comme nts CHOL (test code = 2777763147) 134 mg/dL 120-200 HDL (test code = 3995739500) 34 mg/dL >=40 L HDLC RATIO (test code = 7215940623) 3.9 <=5.0 TRIG (test code = 7443767109) 154 mg/dL 30-170 LDL CHOL (test code = 48796-0) 69 mg/dL <=160 VLDL (test code = 0279115182) 31 mg/dL 5-60 Lab Interpretation (test cod e = 92910-5) Abnormal [facility] HospitalTacrolimus, Ykxzg5540-26-68 13:53:41* Test Item Value Reference Range Interpretation Comme nts FK 506 (test code = 3937639643) 6 ng/mL MARLENE (test code = MARLENE) Target/Therapeutic [...] ?(>12 mo) ? ?8-10 Method by: ?Chemiflex, Canvas Cutter Hand i1000 [facility] HospitalXR Bone survey [id number] 12:18:24XR BONE SURVEY LTD, 21 views total. HISTORY: ?Foreign Body- MRI Clearance COMPARISON: ?none available.[facility] HospitalPhosphorus2025-09-01 10:24:13 * Test Item Value Reference Range Interpretation Comme nts PHOSPHORUS (test code = 6661552931) 3.5 mg/dL 2.5-5.0 Lab Interpretation (test cod e = 33447-7) Normal [facility] HospitalMagnesium2025-09-01 10:24:13* Test Item Value Reference Range Interpretation Comme nts MAGNESIUM (test code = 0490400996) 2 mg/dL 1.7-2.4 Lab Interpretation (test cod e = 28668-7) Normal [facility] HospitalBasic Metabolic Panel (NA, K, CL, CO2, GLUCOSE, BUN, CREATININE, CA)2024-12-27 10:24:13* Test Item Value Reference Range Interpretation Comme nts NA (test code = 4303565071) 141 mmol/L 135-145 K (test code = 5087909911) 3.7 mmol/L 3.5-5.0 CL (test code = 0686407020) 111 mmol/L 98-108 H CO2 TOTAL (test code = 2444370487) 22 mmol/L 23-31 L AGAP (test code = 1338059301) 8 2-16 BUN (test code = 1962935025) 42 mg/dL 7-23 H GLUCOSE (test code = 8345363362) 105 mg/dL 70-110 CREATININE (test code = 2160-0) 2.42 mg/dL 0.60-1.25 H CALCIUM (test code = 8510777681) 9.9 mg/dL 8.6-10.6 eGFR (test code = 94335-2) 28.4 mL/min/1.73m2 CKD-EPI eGFR (2020). Assuming creatinine has been stable day-to-day for at least three months, the eGFR indicates Category G4 (15 - 29 mL/min/1.73 m2) Lab Interpretation (test code = 06906-5) Abnormal [facility] HospitalProthrombin Time / [id number] 09:33:24* Test Item Value Reference Range Interpretation Comme [facility] PROTIME PATIENT (test code = 5964-2) 12 10.1-12.6 INR (test code = 6301-6) 1.1 <=4.5 Normal INR <1.1; Warfarin Therapeutic range 2.0 to 3.0 or 2.5 to 3.5, depending upon the indications. Lab Interpretation (test code = 41823-5) Normal [facility] HospitalaPTT2025-09-01 09:33:24* Test Item Value Reference Range Interpretation Comme nts APTT Patient (test code = 3173-2) 31 26-36 Lab Interpretation (test cod e = 05375-9) Normal [facility] HospitalCbc with Xetb2774-97-53 09:25:41* Test Item Value Reference Range Interpretation Comme nts WBC (test code = 6690-2) 6.21 4.20-10.70 RBC (test code = 789-8) 2.61 4.26-5.52 L HGB (test code = 718-7) 7.5 g/dL 12.2-16.4 L HCT (test code = 4544-3) 23.1 % 38.4-49.3 L MCV (test code = 787-2) 88.5 fL 81.7-95.6 MCH (test code = 785-6) 28.7 pg 26.1-32.7 MCHC (test code = 786-4) 32.5 g/dL 31.2-35.0 RDW-SD (test code = 88040-3) 44.7 fL 38.5-51.6 RDW-CV (test code = 788-0) 13.9 % 12.1-15.4 PLT (test code = 777-3) 354 150-328 H MPV (test code = 72683-4) 10.2 fL 9.8-13.0 NRBC/100 WBC (test code = 0576932601) 0 0.0-10.0 NRBC x10^3 (test code = 8217183119) See_Comment [Automated messa ge] The system which generated this result transmitted reference range: 10*3/?L. The reference range was not used to interpret this result as normal/abnormal. GRAN MAT (NEUT) % (test code = 770-8) 72.1 % IMM GRAN % (test code = 3654918512) 1.6 % LYMPH % (test code = 736-9) 11.8 % MONO % (test code = 5905-5) 11.1 % EOS % (test code = 713-8) 2.9 % BASO % (test code = 706-2) 0.5 % GRAN MAT x10^3(ANC) (test code = 7715391518) 4.48 10*3/uL 1.99-6.95 IMM GRAN x10^3 (test code = 8862372573) 0.1 10*3/uL 0.00-0.06 H LYMPH x10^3 (test code = 731-0) 0.73 10*3/uL 1.09-3.23 L MONO x10^3 (test code = 742-7) 0.69 10*3/uL 0.36-1.02 EOS x10^3 (test code = 711-2) 0.18 10*3/uL 0.06-0.53 BASO x10^3 (test code = 704-7) 0.03 10*3/uL 0.01-0.09 Lab Interpretation (test code = 57280-6) Abnormal [facility] HospitalXR [id number] 20:57:21EXAM: XR KUB HISTORY: 69 years-old Male, PCN placement verification COMPARISON: CT 12/22/2024. TECHNI QUE: Frontal views of the abdomen and pelvis were obtained. FINDINGS:The tip of the right pigtail PCN projects over the right peripheral midabdomen.The bowel gas is unremarkable. No acute bony abnormalities are noted.Surgical clips/janeth project over the abdomen. Partially imagedsternotomy wires appear intact and aligned.[facility] HospitalUS Transplanted kidney 2024-12-23 21:50:28EXAM: US TRANSPLANTED KIDNEY HISTORY: 69 years-old Male; renal transplant w KATLYN W/ doppler d/t c/f renalartery compression. TECHNIQUE: Survey ultrasound imaging of the transplant kidney and bladderwas performed, and include color and spectral Doppler evaluation.Magistrate Assistant images were obtained. COMPARISON: CT AP dated 04/15/2022 and US transplant kidney dated 12/13/2021 FINDINGS: Transplant kidney: Size: The transplanted kidney measures 15.8 x 6.9 x 4.9 cm.Collecting system: Mild hydronephrosis is seen. A subcentimeter echogenicfocus is noted at the inferior pole of the kidney.Parenchyma: The renal cortex exhibits normal cortical echogenicity howeverappears thinned. A large echogenic massnoted at the medial aspect of thetransplant kidney appears to be compressing the renal cortex. The m assmeasures approximately 9.4 x 6.7 x 8.9 cm.Perinephric: No collection. Vasculature Measurements: The Inferior Arcuate Artery RI measures 0.68. The Mid Arcuate Artery RI measures 0.63.The Superior Arcuate Artery RI measures 0.69. The Segmental Artery RI measures 0.76. The PSV measures 34.3 cm/s. The renal artery is patent. The Renal Artery PSV measures 55.3 cm/s, andthe RI measures 0.88. The Anastomotic Site PSV measures 68.1 cm/s. The Iliac Artery PSV measures 134 cm/s. The renal vein is patent.The iliac vein is patent. Bladder: The bladder is decompressed by Fritz catheter. Other: None.[facility] HospitalCT Abdomen pelvis w fmumjdct6035-19-64 20:15:59EXAM: CT ABDOMEN PELVIS W CONTRAST HISTORY: 69 years-old Male; Abdominal pain, acute, nonlocalized . Kidneytransplant in 2004. Interpretation of outside study. COMPARISON: Multiple prior studies, earliest images available 09/16/2014 FINDINGS: Limited evaluation of solid organs and vasculatures without administrationintravenous contrast. LOWER THORAX: Bibasilar atelectasis or aspiration changes. Right lower lobepleural-based nodules. ?HHeavy coronary artery calcifications with stent.Cardiomegaly.LIVER: The liver is normal in size and contour. No focal hepatic lesion isseen within the limitations of a non- contrasted examination. GALLBLADDER AND BILIARY TREE: Post surgical changes of cholecystectomy areseen. No radiopaque gallstones are seen. No intra or extrahepatic biliaryductal dilation is visualized. SPLEEN: The spleen appears unremarkable. PANCREAS: No ductal dilation or masses are visualized. ADRENAL GLANDS: No adrenal masses are seen. KIDNEYS, URETERS, AND BLADDER: ?Bilateral kasaan kidneys are surgicallyresected. The transplanted kidney is seen at the right lower quadrant. Afewnonobstructing calyceal stones are seen measuring up to 4 mm. There ismild transplant hydroureteronephrosis with tapering of the ureter towardsthe anastomosis which is increased from prior. The ureter and collectingsystem is stretched about the below described mass but the transitionappears to primarily be at the anastomosis. The bladder is not distended.Mild perinephric fat stranding. A lobulated perinephric mass medial to thetransplanted kidney, which appears within the capsule, spanning 12.4cm incraniocaudal dimension and appears gradually increased over time. are softtissue densities within the fat density which are less well defined and/orincreased with the increasing surrounding stranding.REPRODUCTIVE ORGANS: Marked prostatomegaly and TURP changes. The urinarybladder is partially di stended with thickening and irregularity at thebladder dome with ureteral anastomosis. GI TRACT: Nodilation or bowel wall thickening is seen. The appendix is notdefinitively visualized, however, no secondary signs of appendicitis areseen. PERITONEUM AND RETROPERITONEUM: No intra-abdominal free airor fluidcollection is visualized. LYMPH NODES: No lymphadenopathy. VESSELS: Moderate atherosclerotic calcifications affect the abdominalaorta, bilateral common iliac arteries, and their branch vessels. BONES AND SOFT TISSUES: No suspicious sclerotic or lytic osseous lesions. No fractures.[facility] HospitalPOCT GLUCOSE (AUTOMATED)2024-12-23 08:08:55* Test Item Value Reference Range Interpretation Comme [facility] POCT GLU (test code = 4303914859) 105 mg/dL 70-110 Lab Interpretation (test cod e = 59624-5) Normal [facility] HospitalHLA ANTIBODY [id number] 15:43:00* Test Item Value Reference Range Interpretation Comme [facility] SERUM DTE (test code = 3221) 11/08/2024 CALCULATED PRA (test code = 3899) 62 TEST TYPE (test code = 3900) Single Ag TEST DATE (test code = 3221) 11/12/2024 T-PRA (test code = 3223) -- T-ID (test code = 3224) A:1 METHOD (test code = 3226) Luminex COMMENTS (test code = 322) No Class I DSA Detected.Performed at [facility] [[email or web address]] [facility] - Tissue AntigenDIRECTOR: ?JOSE MARIE MD, [address] [place], [place] ?[address]Jpsra: [phone] No. [id number] ANALYTE SPECIFIC REAGENT STATEMENT: ?This test was developed and its performance characteristics determined by the [facility] [[email or web address]] Tissue Antigen Laboratory. ?The test has not been cleared or approved by the [place] [employer] (USFDA). ?The USFDA does not require licensing of reagents used in these tests. VERIFIED BY: ?James Hinojosa (electronic signature) 11/17/2024 REPORT DTE (test code = 3228) 11/17/2024 TECH (test code = 3229) GF TEST DATE (test code = 3229) 11/12/2024 B-PRA (test code = 3231) -- B-ID (test code = 323) DRw:53DP:1, 15, 2 METHOD (test code = 3234) Luminex COMMENTS (test code = 3235) Class II DSA: ?DR53(TR=6858) ? Performed at [facility] [[email or web address]] [facility] - Tissue AntigenDIRECTOR: ?JOSE MARIE MD, BJI[address] [place], [place] ?[address]Lwdff: [phone] No. [id number] ANALYTE SPECIFIC REAGENT STATEMENT: ?This test was developed and its performance characteristics determined by the [facility] [[email or web address]] Tissue Antigen Laboratory. ?The test has not been cleared or approved by the [place] [employer] (USFDA). ?The USFDA does not require licensing of reagents used in these tests. VERIFIED BY: ?James Hinojosa (electronic signature) 11/17/2024 REPORT DTE (test code = 3236) 11/17/2024 TECH (test code = 3237) [facility] 12 [id number] 10:48:31* Test Item Value Reference Range Interpretation Comme nts Ventricular Rate (test code = 8902836589) BPM Atrial Rate (test code = 8708824942) BPM WI Interval (test code = 0689931251) 184 ms QRS Duration (test code = 9520443839) 156 ms QT/QTc (test code = 5725804253) 484 ms QTc Calculation (test code = 6882444602) 487 ms P-[place] (test code = 8250185729) degrees R-[place] (test code = 7546281353) degrees T-[place] (test code = 9639317199) degrees IMP (test code = IMP) PXN (test code = PXN) [facility]an[facility] (TTE) xfvykfuc9725-10-37 13:16:13* Test Item Value Reference Range Interpretation Comme nts RVOT Vmean (test code = 0748909824) 0.65 m/s LVOT Vmax/AV Vmax (test code = 2747632046) 0.77 {ratio} Ao Root diam diastole (test code = 5707645236) 31 mm LVOT Vmean (test code = 2582120537) 0.80 m/s PV mn zain (test code = 6517525961) 0.65 m/s MV max zain (test code = 5819444581) 1.02 cm/s TR pk grad (test code = 2622781257) mmHg TAPSE (test code = 3198798817) 20 mm IVC size (test code = 1294581505) 14 mm MV mn zain (test code = 5894921549) 0.729 m/s LV est EF (test code = 8807-0) 61 % MV A pk zain (test code = 7063550975) 0.92 m/s MV PHT (test code = 1762477840) 62 ms MV VTI (test code = 0164877422) 28.9 cm MV E pk zain (test code = 5968325951) 0.94 m/s PV mn grad (test code = 3779084286) mmHg MV pk grad (test code = 5969632436) mmHg AV pk grad (test code = 2850470849) mmHg LV stroke vol (test code = 8054632269) 84.77 ml RVOT VTI (test code = 1617938129) 17.9 cm RVOT pk zain (test code = 5099822048) 1.01 m/s AV VTI (test code = 8246099490) 31.3 cm AV pk zain (test code = 26878-9) 1.62 m/s LVOT VTI (test code = 0674689422) 22.3 cm LVOT pk zain (test code = 2780637326) 1.24 m/s LVOT area (test code = 7615202486) 3.80 cm2 LVOT diam (test code = 5478978895) 22 mm MV DT (test code = 8929936333) 211 ms MV e' lateral zain (test code = 3589681552) 6.85 cm/s MV E/A ratio (test code = 1008262383) PV pk grad (test code = 6371401075) mmHg MV area cont eq (test code = 4532498878) 2.93 cm2 MV area PHT (test code = 0313971290) 3.55 cm2 MV mn grad (test code = 4312325548) mmHg LVOT pk grad (test code = 1213454612) mmHg AV mn grad (test code = 16922-4) mmHg RVOT mn grad (test code = 6092506380) mmHg RVOT pk grad (test code = 1493063855) mmHg MV E/e' septal (test code = 9056513142) TR pk zain (test code = 6405705999) 1.92 m/s AV area pk zain (test code = 9069613775) 2.91 cm2 AV area cont VTI (test code = 4641571607) 2.71 cm2 LVOT mn grad (test code = 6860606389) mmHg AV mn zain (test code = 4099862095) 1.09 m/s LVPWd (test code = 4481496359) 18 mm LA size (test code = 1269737652) 44 mm Ascending aorta (test code = 8126067445) [address] junction (test code = 9400781125) 24 mm IVC prox (test code = 9511357393) 14.1 cm Fractional Shortening 2D (te st code = 8071580118) 32 % LVIDs (test code = 4179101066) 30 mm IVSd (test code = 3352422920) 15 mm LVIDd (test code = 4759529445) 44 mm PV pk zain (test code = 5780994963) 1.02 m/s PV VTI (test code = 6278110) 19.3 cm MV E/e' lateral (test code = 5014851) MV e' septal zain (test code = 0829931) 4.57 cm/s LV ESV 2D (test code = 3474756) 34.72 mL LV EDV 2D (test code = 7853225) 88.16 mL IVSd 2D (test code = 0514272) 15 cm BSA (test code = 8983510778) 2.1 m2 LV stroke vol index (test co de = 70753706) 40.53 ml/m2 LV LVIDd index (test code = 82583140) 21.08 mm/m2 LVIDs index (test code = 28581469) 14.29 mm/m2 LV ESV index 2D (test code = 7422620867) 16.60 ml/m2 LV EDV index 2D (test code = 9380644145) 42.15 ml/m2 LV RWT 2D (test code = 7498528712) LV mass 2D (test code = 5181302689) 307.60 g LV mass index 2D (test code = 9544090403) 147.06 g/m2 LA diam systole Index (test code = 4038173363) 21.04 mm/m2 AV area index (test code = 5228525884) 1.29 cm2/m2 LV stroke vol index (test co de = 0817788335) 40.53 mL/m2 Ao STJ diam I - Aorta BSA (t est code = 6878623699) 11.38 mm/m2 AVAI (Vmax) BSA (test code = 8608761041) 1.39 cm2/m2 Ao Asc diam I BSA (test code = 7709488536) 16.73 mm/m2 MV avg E/e' (test code = 0639724262) AV zain ratio (test code = 6957483018) LV mass size 1 (test code = 1245347872) 307.6 cm RVSP (test code = 6993060) mmHg Est RA pressure (test code = 1965952860) mmHg sPAP (test code = 5336538028) mmHg RAP (test code = 5050106969) mmHg LV biplane EF (test code = 09898-2) 66.2 % LV A2C EF (test code = 663278-5) 75 % LV A4C EF (test code = 308615-6) 53 % LV SI (BP) (test code = 4110304192) 54.12 ml/m2 LV SI (A2C) (test code = 3866474928) 48.23 ml/m2 LV SI (A4C) (test code = 2296802712) 52.70 ml/m2 LV SV (BP) (test code = 1695609964) 113.20 ml LV SI (A2C) (test code = 4040375752) 100.89 ml LV SV (A4C) (test code = 4627979223) 110.23 ml LV ESV BP (test code = 4228655079) 57.89 mL LV ESV index BP (test code = 1932941321) 27.67 mL/m2 LV ESV A2C (test code = 6127096541) 33.72 mL LV ESV index A2C (test code = 0753973101) 16.12 ml/m2 LV EDV BP (test code = 6697806825) 171.09 mL LV ESV A4C (test code = 2401159705) 97.08 mL LV EDV index BP (test code = 0665813365) 81.79 mL/m2 LV ESV index A4C (test code = 3723179932) 46.41 ml/m2 LV EDV A2C (test code = 6004595207) 134.61 mL LV EDV index A2C (test code = 3031797096) LV EDV A4C (test code = 9247169569) 207.31 mL LV EDV index A4C (test code = 2072463251) 99.11 ml/m2 LVLd (A2C) (test code = 5895889579) 87.80 mm LVLd (A4C) (test code = 8689743224) 92.93 mm LVLs (A2C) (test code = 8326800287) 72.10 mm LVLs (A4C) (test code = 7945774483) 82.89 mm Radiology Study observation (narrative) (test code = 77728-1) MARLENE (test code = MARLENE) [facility] EpicCMV by Quantitative [id number] 16:54:53* Test Item Value Reference Range Interpretation Comme [facility] CMV NAAT, Plasma - Interpratation (test code = 21103-5) Not Detected Indeterminate, Not Detected IU/mL MARLENE (test code = MARLENE) Test Information: CMV by Quantitative NAAT, Plasma The quantitative range of this assay is 1.54 - 7.00 log IU/mL ?(34.5 - 10,000,000 IU /mL) An interpretation of "Not Detected" does not rule out the presence of inhibitors or CMV DNA concentrations below the level of detection by the assay. Care should be taken in the interpretation of any single viral load determination. Detected, not Quantifiable: CMV DNA detected, but at a level below 34.5 IU/mL (1.54 log IU/mL). CMV DNA concentration is below the lower limit of quantitation of the assay. Indeterminate: ?Unable to generate a valid test result on this specimen. ?Please submit a new specimen for repeat testing if clinically indicated. Lab Interpretation (test code = 24527-6) Normal [facility] HospitalBK Virus DNA, Quant Iwgfze3027-20-37 15:52:19 * Test Item Value Reference Range Interpretation Comme nts BK Quant by NAAT, Plasma Interpretation (test code = 15139-7) Not Detected Not Detected, Detected, not Quantifiable, Indeterminate, Invalid MARLENE (test code = MARLENE) Test Information: BK Virus by Quantitative NAAT, Plasma The quantitative range of this assay is 1.33 - 8.00 log IU/mL ?(21.5 - 100,000,000 IU /mL) An interpretation of "Not Detected" does not rule out the presence of inhibitors or BK virus DNA concentrations below the level of detection by the assay. Care should be taken in the interpretation of any single viral load determination. Detected, not Quantifiable: BKV DNA detected, but at a level below 21.5 IU/mL (1.33 log IU/mL). BKV DNA concentration is below the lower limit of quantitation of the assay. Indeterminate: ?Unable to generate a valid test result on this specimen. ?Please submit a new specimen for repeat testing if clinically indicated. Lab Interpretation (test code = 98619-6) Normal [facility] Kievjik8910-86-88 11:18:36* Test Item Value Reference Range Interpretation Comme nts POC Glu (test code = 12041-7) 106 mg/dL 70-99 H POC Performing Location (abraham t code = 2061668084) H1 ER Lab Interpretation (test cod e = 46541-6) Abnormal [facility] EpicVitamin D, [id number] 09:46:47* Test Item Value Reference Range Interpretation Comme nts VIT D 25OH (test code = 19796-2) 23 ng/mL 25-80 L MARLENE (test code = MARLENE) Deficiency: <20 ng/mLInsufficiency: 20-24 ng/mLOptimal: 25-80 ng/mL Lab Interpretation (test code = 58742-5) [facility]normal [facility] Hospital[facility] Stimulating Ytwejvd7195-73-95 22:21:19 * Test Item Value Reference Range Interpretation Comme nts TSH (test code = 1240606696) 1.61 0.45-4.70 Biotin has been reported to cause a negative bias, interpret results relative to patient's use of biotin. Lab Interpretation (test code = 28476-4) Normal [facility] [id number] 22:07:37* Test Item Value Reference Range Interpretation Comme nts FREE T4 (test code = 3147152758) 1.17 ng/dL 0.78-2.20 Lab Interpretation (test cod e = 16749-7) Normal [facility] [id number] 22:07:17* Test Item Value Reference Range Interpretation Comme nts FREE T3 (test code = 3086354546) 3.02 pg/mL 2.77-5.27 Lab Interpretation (test cod e = 22396-6) Normal [facility] HospitalGlycosylated Hemoglobin (A1C)2024-08-03 22:06:26* Test Item Value Reference Range Interpretation Comme nts HGB A1C (test code = 4548-4) 5.7 % 4.0-5.7 MARLENE (test code = MARLENE) Reference RangesNormal: <5.7%Prediabetes: 5.7 - 6.4%Diabetes: > 6.5% Lab Interpretation (test code = 06640-3) Normal [facility] HospitalLipid Panel (93811)(Total Cholesterol, Triglycerides, HDL)2024-08-03 21:50:31* Test Item Value Reference Range Interpretation Comme nts CHOL (test code = 6706174610) 173 mg/dL 120-200 HDL (test code = 2222196548) 92 mg/dL >=40 HDLC RATIO (test code = 6062422378) 1.9 <=5.0 TRIG (test code = 3172410614) 77 mg/dL 30-170 LDL CHOL (test code = 24896-9) 66 mg/dL <=160 VLDL (test code = 6032051183) 15 mg/dL 5-60 Lab Interpretation (test cod e = 11197-2) Normal [facility] HospitalEXTERNAL [id number]-[id number] 00:00:00* Test Item Value Reference Range Interpretation Comme nts DD-cfDNA (External Results) (test code = 5126) 0.50 <=1.0 [facility] HospitalTacrolimus, Pbmjs3685-16-15 14:19:47* Test Item Value Reference Range Interpretation Comme nts FK 506 (test code = 9582868377) 3 ng/mL MARLENE (test code = MARLENE) [...] ?(>12 mo) ? ?8-10 Method by: ?Chemiflex, Canvas Cutter Hand i1000 [facility] GLUCOSE (AUTOMATED)2023-07-17 13:44:59* Test Item Value Reference Range Interpretation Comme nts POCT GLU (test code = 0167233511) 283 mg/dL 70-110 H Lab Interpretation (test cod e = 29966-0) Abnormal [facility] GLUCOSE (AUTOMATED)2023-07-17 08:26:29* Test Item Value Reference Range Interpretation Comme nts POCT GLU (test code = 2447426039) 124 mg/dL 70-110 H Lab Interpretation (test cod e = 61914-9) Abnormal [facility] GLUCOSE (AUTOMATED)2023-07-17 04:14:10* Test Item Value Reference Range Interpretation Comme nts POCT GLU (test code = 8573203918) 121 mg/dL 70-110 H Lab Interpretation (test cod e = 53365-9) Abnormal [facility] GLUCOSE (AUTOMATED)2023-07-17 01:25:34* Test Item Value Reference Range Interpretation Comme nts POCT GLU (test code = 9651725627) 128 mg/dL 70-110 H Lab Interpretation (test cod e = 13503-0) Abnormal [facility] GLUCOSE (AUTOMATED)2023-07-16 22:12:39* Test Item Value Reference Range Interpretation Comme nts POCT GLU (test code = 8488598976) 139 mg/dL 70-110 H Lab Interpretation (test cod e = 01862-1) Abnormal [facility] GLUCOSE (AUTOMATED)2023-07-16 16:39:56* Test Item Value Reference Range Interpretation Comme nts POCT GLU (test code = 4987160885) 160 mg/dL 70-110 H Lab Interpretation (test cod e = 02304-2) Abnormal [facility] GLUCOSE (AUTOMATED)2023-07-16 12:34:13* Test Item Value Reference Range Interpretation Comme nts POCT GLU (test code = 6497353214) 143 mg/dL 70-110 H Lab Interpretation (test cod e = 95880-4) Abnormal [facility] GLUCOSE (AUTOMATED)2023-07-16 08:31:41* Test Item Value Reference Range Interpretation Comme nts POCT GLU (test code = 1175688999) 137 mg/dL 70-110 H Lab Interpretation (test cod e = 67635-0) Abnormal [facility] GLUCOSE (AUTOMATED)2023-07-16 04:16:32* Test Item Value Reference Range Interpretation Comme nts POCT GLU (test code = 6337460935) 124 mg/dL 70-110 H Lab Interpretation (test cod e = 67946-3) Abnormal [facility] HospitalABG+COOX+NA+K+GLU+CA2+2023-07-16 04:16:22* Test Item Value Reference Range Interpretation Comme nts PH (test code = 2) 7.32 7.35-7.45 L PCO2 (test code = 4589734186) 37 35-45 PO2 (test code = 6779179951) 109 80-100 H HCO3 (test code = 3784408080) 19 22-26 L BE (test code = 1187444739) -6.9 -3.0-3.0 L THB (test code = 5972356752) 8.2 g/dL 13.5-18.0 LL %O2HB (test code = 9912944969) 96.7 % 94.0-99.0 %COHB ART (test code = 5801390854) 0.6 % 0.0-1.5 %METHB ART (test code = 6987860446) 0.5 % 0.4-1.5 VOL%O2 ART (test code = 1866188990) 11.4 % 15.0-23.0 L QUES NA (test code = 9557363384) 131 mmol/L 135-145 L K+ (test code = 0806495673) 5.4 mmol/L 3.5-5.0 H AC CA IONZ (test code = 1473146857) 5.60 mg/dL 4.50-5.30 H GLUCOSE (test code = 7042303838) 160 mg/dL 70-110 H Lab Interpretation (test cod e = 37406-8) Abnormal [facility] HospitalABG+COOX+NA+K+GLU+CA2+2023-07-16 04:15:02* Test Item Value Reference Range Interpretation Comme nts PH (test code = 2) 7.35 7.35-7.45 PCO2 (test code = 4739378513) 39 35-45 PO2 (test code = 5927155960) 113 80-100 H HCO3 (test code = 6582784911) 21 22-26 L BE (test code = 7966954749) -4.2 -3.0-3.0 L THB (test code = 9131090126) 9.2 g/dL 13.5-18.0 L %O2HB (test code = 3518451934) 97.3 % 94.0-99.0 %COHB ART (test code = 6026042259) 0.5 % 0.0-1.5 %METHB ART (test code = 3506822644) 0.4 % 0.4-1.5 VOL%O2 ART (test code = 5112052732) 12.8 % 15.0-23.0 L QUES NA (test code = 8819037550) 132 mmol/L 135-145 L K+ (test code = 0483627118) 5.3 mmol/L 3.5-5.0 H AC CA IONZ (test code = 6321951053) 5.00 mg/dL 4.50-5.30 GLUCOSE (test code = 7449809356) 173 mg/dL 70-110 H Lab Interpretation (test cod e = 38535-4) Abnormal [facility] GLUCOSE (AUTOMATED)2023-07-15 21:19:06* Test Item Value Reference Range Interpretation Comme nts POCT GLU (test code = 7266471652) 148 mg/dL 70-110 H Lab Interpretation (test cod e = 82339-2) Abnormal [facility] GLUCOSE (AUTOMATED)2023-07-15 16:51:52* Test Item Value Reference Range Interpretation Comme nts POCT GLU (test code = 4977032707) 120 mg/dL 70-110 H Lab Interpretation (test cod e = 67604-9) Abnormal [facility] GLUCOSE (AUTOMATED)2023-07-15 12:40:22* Test Item Value Reference Range Interpretation Comme nts POCT GLU (test code = 4220159967) 118 mg/dL 70-110 H Lab Interpretation (test cod e = 94300-8) Abnormal [facility] GLUCOSE (AUTOMATED)2023-07-15 09:40:41* Test Item Value Reference Range Interpretation Comme nts POCT GLU (test code = 9615278842) 116 mg/dL 70-110 H Lab Interpretation (test cod e = 91517-1) Abnormal [facility] GLUCOSE (AUTOMATED)2023-07-15 05:19:36* Test Item Value Reference Range Interpretation Comme nts POCT GLU (test code = 9862385469) 134 mg/dL 70-110 H Lab Interpretation (test cod e = 57511-4) Abnormal [facility] GLUCOSE (AUTOMATED)2023-07-15 02:23:31* Test Item Value Reference Range Interpretation Comme nts POCT GLU (test code = 1238698954) 144 mg/dL 70-110 H Lab Interpretation (test cod e = 60922-9) Abnormal [facility] HospitalAB+COOX+NA+K+GLU+CA2+2023-07-15 01:48:24* Test Item Value Reference Range Interpretation Comme nts PH (test code = 2) 7.40 7.35-7.45 PCO2 (test code = 2384717376) 32 35-45 L PO2 (test code = 2609786324) 463 80-100 H HCO3 (test code = 4853511242) 19 22-26 L BE (test code = 4877710375) -5.2 -3.0-3.0 L THB (test code = 9035014642) 7.4 g/dL 13.5-18.0 LL %O2HB (test code = 9431747766) 98.3 % 94.0-99.0 %COHB ART (test code = 7426523391) 0.6 % 0.0-1.5 %METHB ART (test code = 2739764642) 0.7 % 0.4-1.5 VOL%O2 ART (test code = 3275763849) 11.6 % 15.0-23.0 L QUES NA (test code = 7302845671) 132 mmol/L 135-145 L K+ (test code = 6798955049) 4.9 mmol/L 3.5-5.0 AC CA IONZ (test code = 6222356857) 4.70 mg/dL 4.50-5.30 GLUCOSE (test code = 2338948726) 204 mg/dL 70-110 H Lab Interpretation (test cod e = 54866-1) Abnormal [facility] GLUCOSE (AUTOMATED)2023-07-14 21:03:15* Test Item Value Reference Range Interpretation Comme nts POCT GLU (test code = 6613012499) 111 mg/dL 70-110 H Notified Provide r Lab Interpretation (test code = 59229-7) Abnormal [facility] GLUCOSE (AUTOMATED)2023-07-14 16:46:08* Test Item Value Reference Range Interpretation Comme nts POCT GLU (test code = 9225524789) 136 mg/dL 70-110 H Notified Provide r Lab Interpretation (test code = 05111-7) Abnormal [facility] GLUCOSE (AUTOMATED)2023-07-14 12:35:49* Test Item Value Reference Range Interpretation Comme nts POCT GLU (test code = 6562975914) 101 mg/dL 70-110 Notified Provide r Lab Interpretation (test code = 04092-1) Normal [facility] GLUCOSE (AUTOMATED)2023-07-14 09:31:13* Test Item Value Reference Range Interpretation Comme nts POCT GLU (test code = 7159201662) 118 mg/dL 70-110 H Notified Provide r Lab Interpretation (test code = 95114-5) Abnormal [facility] GLUCOSE (AUTOMATED)2023-07-14 05:06:14* Test Item Value Reference Range Interpretation Comme nts POCT GLU (test code = 1331541003) 118 mg/dL 70-110 H Notified Provide r Lab Interpretation (test code = 71855-8) Abnormal [facility] GLUCOSE (AUTOMATED)2023-07-14 02:38:00* Test Item Value Reference Range Interpretation Comme nts POCT GLU (test code = 8555288227) 124 mg/dL 70-110 H Notified Provide r Lab Interpretation (test code = 98308-4) Abnormal [facility] GLUCOSE (AUTOMATED)2023-07-13 20:42:13* Test Item Value Reference Range Interpretation Comme nts POCT GLU (test code = 3234926537) 158 mg/dL 70-110 H Notified Provide r Lab Interpretation (test code = 81592-2) Abnormal [facility] GLUCOSE (AUTOMATED)2023-07-13 16:58:06* Test Item Value Reference Range Interpretation Comme nts POCT GLU (test code = 4302453130) 129 mg/dL 70-110 H Notified Provide r Lab Interpretation (test code = 16991-4) Abnormal [facility] 2 Views - Upright ( PA, [...] and soft tissues: Sternotomy wires in satisfactory alignment.[facility] GLUCOSE (AUTOMATED)2023-07-13 13:07:47* Test Item Value Reference Range Interpretation Comme nts POCT GLU (test code = 4134146817) 120 mg/dL 70-110 H Notified Provide r Lab Interpretation (test code = 62692-3) Abnormal [facility] GLUCOSE (AUTOMATED)2023-07-13 08:12:33* Test Item Value Reference Range Interpretation Comme nts POCT GLU (test code = 1362394503) 118 mg/dL 70-110 H Lab Interpretation (test cod e = 83697-6) Abnormal [facility] GLUCOSE (AUTOMATED)2023-07-13 04:12:27* Test Item Value Reference Range Interpretation Comme nts POCT GLU (test code = 3183523979) 142 mg/dL 70-110 H Lab Interpretation (test cod e = 94618-9) Abnormal [facility] GLUCOSE (AUTOMATED)2023-07-13 00:36:22* Test Item Value Reference Range Interpretation Comme nts POCT GLU (test code = 3408597991) 158 mg/dL 70-110 H Lab Interpretation (test cod e = 10686-9) Abnormal [facility] GLUCOSE (AUTOMATED)2023-07-12 21:31:45* Test Item Value Reference Range Interpretation Comme nts POCT GLU (test code = 5128802660) 219 mg/dL 70-110 H Lab Interpretation (test cod e = 52427-7) Abnormal [facility] GLUCOSE (AUTOMATED)2023-07-12 16:50:05* Test Item Value Reference Range Interpretation Comme nts POCT GLU (test code = 3788508269) 132 mg/dL 70-110 H Lab Interpretation (test cod e = 02147-0) [facility]normal [facility] HospitalTacrolimus, Pwahu3131-41-97 15:22:20* Test Item Value Reference Range Interpretation Comme nts FK 506 (test code = 3802423777) 3 ng/mL MARLENE (test code = MARLENE) [...] ?(>12 mo) ? ?8-10 Method by: ?Chemiflex, Canvas Cutter Hand i1000 [facility] HospitalPOMD GLUCOSE (AUTOMATED)2023-07-12 12:51:54* Test Item Value Reference Range Interpretation Comme nts POCT GLU (test code = 9925126039) 115 mg/dL 70-110 H Lab Interpretation (test cod e = 65381-0) Abnormal [facility]Bas[facility] (NA, K, CL, CO2, GLUCOSE, BUN, CREATININE, CA) on POD # 11:12:50* Test Item Value Reference Range Interpretation Comme nts NA (test code = 3940703758) 139 mmol/L 135-145 K (test code = 6056229840) 4.8 mmol/L 3.5-5.0 CL (test code = 2185781764) 114 mmol/L 98-108 H CO2 TOTAL (test code = 1821505738) 19 mmol/L 23-31 L AGAP (test code = 2778538498) 6 2-16 BUN (test code = 5688970702) 33 mg/dL 7-23 H GLUCOSE (test code = 5729401049) 114 mg/dL 70-110 H CREATININE (test code = 2160-0) 1.53 mg/dL 0.60-1.25 H CALCIUM (test code = 6494835209) 9.2 mg/dL 8.6-10.6 eGFR (test code = 12236-9) 49.5 mL/min/1.73m2 CKD-EPI eGFR (2020). Assuming creatinine has been stable day-to-day for at least three months, the eGFR indicates Category G3a (45 - 59 mL/min/1.73 m2) Lab Interpretation (test code = 24353-9) Abnormal [facility] HospitalCB with Differential on POD # 11233-08-16 10:41:56* Test Item Value Reference Range Interpretation [...] 33.9 g/dL 31.2-35.0 RDW-SD (test code = 24310-7) 55.2 fL 38.5-51.6 H RDW-CV (test code = 788-0) 16.8 % 12.1-15.4 H PLT (test code = 777-3) 139 150-328 L MPV (test code = 80070-4) 11.3 fL 9.8-13.0 IPF % (test code = 2389867711) 4.4 % 1.2-10.7 Platelet count measured by fluorescence method. NRBC/100 WBC (test code = 7385240915) 1.3 0.0-10.0 NRBC x10^3 (test code = 5551872734) 0.11 See_Comment [Automated Abcama ge] The system which generated this result transmitted reference range: 10*3/?L. The reference range was not used to interpret this result as normal/abnormal. GRAN MAT (NEUT) % (test code = 770-8) 74.1 % IMM GRAN % (test code = 1876323680) 1.10 % LYMPH % (test code = 736-9) 9.4 % MONO % (test code = 5905-5) 13.2 % EOS % (test code = 713-8) 1.7 % BASO % (test code = 706-2) 0.5 % GRAN MAT x10^3(ANC) (test code = 6937362901) 6.12 10*3/uL 1.99-6.95 IMM GRAN x10^3 (test code = 1084134401) 0.09 10*3/uL 0.00-0.06 H LYMPH x10^3 (test code = 731-0) 0.78 10*3/uL 1.09-3.23 L MONO x10^3 (test code = 742-7) 1.09 10*3/uL 0.36-1.02 H EOS x10^3 (test code = 711-2) 0.14 10*3/uL 0.06-0.53 BASO x10^3 (test code = 704-7) 0.04 10*3/uL 0.01-0.09 Lab Interpretation (test code = 66365-0) Abnormal [facility] GLUCOSE (AUTOMATED)2023-07-12 09:56:57* Test Item Value Reference Range Interpretation Comme nts POCT GLU (test code = 7698178434) 128 mg/dL 70-110 H Lab Interpretation (test cod e = 63644-0) Abnormal [facility] GLUCOSE (AUTOMATED)2023-07-12 05:12:19* Test Item Value Reference Range Interpretation Comme nts POCT GLU (test code = 2526265533) 127 mg/dL 70-110 H Lab Interpretation (test cod e = 79559-9) Abnormal [facility] GLUCOSE (AUTOMATED)2023-07-12 01:41:12* Test Item Value Reference Range Interpretation Comme nts POCT GLU (test code = 4076152322) 150 mg/dL 70-110 H Lab Interpretation (test cod e = 37508-9) Abnormal [facility] Metabolic Panel (NA, K, CL, CO2, GLUCOSE, BUN, CREATININE, CA)2023-07-12 00:28:31* Test Item Value Reference Range Interpretation Comme nts NA (test code = 4557763142) 136 mmol/L 135-145 K (test code = 4779088734) 4.4 mmol/L 3.5-5.0 CL (test code = 9765007083) 114 mmol/L 98-108 H CO2 TOTAL (test code = 3716142536) 21 mmol/L 23-31 L AGAP (test code = 5782864768) 1 2-16 L BUN (test code = 5614079262) 33 mg/dL 7-23 H GLUCOSE (test code = 5098570656) 113 mg/dL 70-110 H CREATININE (test code = 2160-0) 1.50 mg/dL 0.60-1.25 H CALCIUM (test code = 7489156404) 8.7 mg/dL 8.6-10.6 eGFR (test code = 38241-2) 50.7 mL/min/1.73m2 CKD-EPI eGFR (2020). Assuming creatinine has been stable day-to-day for at least three months, the eGFR indicates Category G3a (45 - 59 mL/min/1.73 m2) Lab Interpretation (test code = 84937-5) [facility]normal [facility] HospitalMagnesium2024-03-16 00:28:31* Test Item Value Reference Range Interpretation Comme nts MAGNESIUM (test code = 4483000188) 2.0 mg/dL 1.7-2.4 Lab Interpretation (test cod e = 50742-5) Normal [facility] GLUCOSE (AUTOMATED)2023-07-11 21:19:15* Test Item Value Reference Range Interpretation Comme nts POCT GLU (test code = 6532703352) 136 mg/dL 70-110 H Lab Interpretation (test cod e = 08671-4) Abnormal [facility] GLUCOSE (AUTOMATED)2023-07-11 20:39:17* Test Item Value Reference Range Interpretation Comme nts POCT GLU (test code = 2248364485) 150 mg/dL 70-110 H Notified Provide r Lab Interpretation (test code = 76644-5) Abnormal [facility] HospitalPO[facility] (AUTOMATED)2023-07-11 18:11:36* Test Item Value Reference Range Interpretation Comme nts POCT GLU (test code = 0608892315) 143 mg/dL 70-110 H Lab Interpretation (test cod e = 36339-5) Abnormal [facility] with Jslo2084-06-14 17:03:12* Test Item Value Reference Range Interpretation [...] 32.9 g/dL 31.2-35.0 RDW-SD (test code = 90345-5) 55.8 fL 38.5-51.6 H RDW-CV (test code = 788-0) 16.2 % 12.1-15.4 H PLT (test code = 777-3) 104 150-328 L MPV (test code = 10946-3) 11.2 fL 9.8-13.0 IPF % (test code = 0669988378) 4.6 % 1.2-10.7 Platelet count measured by fluorescence method. NRBC/100 WBC (test code = 1441391143) 0.0 0.0-10.0 NRBC x10^3 (test code = 6556298444) See_Comment [Automated [employer]cama ge] The system which generated this result transmitted reference range: 10*3/?L. The reference range was not used to interpret this result as normal/abnormal. GRAN MAT (NEUT) % (test code = 770-8) 79.5 % IMM GRAN % (test code = 6211688022) 1.00 % LYMPH % (test code = 736-9) 5.4 % MONO % (test code = 5905-5) 13.5 % EOS % (test code = 713-8) 0.5 % BASO % (test code = 706-2) 0.1 % GRAN MAT x10^3(ANC) (test code = 3278354658) 7.36 10*3/uL 1.99-6.95 H IMM GRAN x10^3 (test code = 8943200450) 0.09 10*3/uL 0.00-0.06 H LYMPH x10^3 (test code = 731-0) 0.50 10*3/uL 1.09-3.23 L MONO x10^3 (test code = 742-7) 1.25 10*3/uL 0.36-1.02 H EOS x10^3 (test code = 711-2) 0.05 10*3/uL 0.06-0.53 L BASO x10^3 (test code = 704-7) 0.01-0.09 Lab Interpretation (test code = 71964-2) [facility]normal [facility] HospitalTacrolimus, Txfyk2791-04-16 14:08:08* Test Item Value Reference Range Interpretation Comme nts FK 506 (test code = 9978259014) 4 ng/mL MARLENE (test code = MARLENE) [...] ?(>12 mo) ? ?8-10 Method by: ?Chemiflex, Canvas Cutter Hand i1000 [facility] HospitalPrepare Packed RBC (in units), 1 Units 2023-07-11 14:05:53* Test Item Value Reference Range Interpretation Comme nts Cross Match Result (test code = 4409) Compatible ISBT Blood Type Code (test code = 286247) 7300 Unit Blood Type (test code = 4410) B Pos Unit Number (test code = 4411) [id number] Blood Expiration Date & Time (test code = 869766) [id number] Status Information (test code = 4412) Issued Product Identification (test code = 4413) Red Blood Cells Product Code (test code = 4414) [id number] Performed at [facility] B Laboratory Services - [facility] Blood [address] [address]Sadf Free: [phone] No. [id number] [facility] HospitalPOCT GLUCOSE (AUTOMATED)2023-07-11 13:00:59* Test Item Value Reference Range Interpretation Comme nts POCT GLU (test code = 4419728800) 134 mg/dL 70-110 H Lab Interpretation (test cod e = 90937-0) Abnormal [facility] HospitalType and Screen - ONCE ONAQ4791-26-35 12:14:00 * Test Item Value Reference Range Interpretation Comme nts ABO & RH (test code = 20) B POSITIVE IAT (test code = 1185) Negative [facility] HospitalCbc without Jsdl8316-23-84 11:58:13* Test Item Value Reference Range Interpretation [...] 97 150-328 L MPV (test code = 47596-7) 11.8 fL 9.8-13.0 RDW-CV (test code = 788-0) 17.2 % 12.1-15.4 H RDW-SD (test code = 88820-3) 58.2 fL 38.5-51.6 H NRBC x10^3 (test code = 1003330712) 0.02 See_Comment [Automated [employer] ge] The system which generated this result transmitted reference range: 10*3/?L. The reference range was not used to interpret this result as normal/abnormal. NRBC/100 WBC (test code = 1750553387) 0.2 0.0-10.0 IPF % (test code = 5284713216) 5.3 % 1.2-10.7 Platelet count measured by fluorescence method. Lab Interpretation (test code = 42500-5) Abnormal [facility] HospitalPhosphorus2024-03-15 11:19:28* Test Item Value Reference Range Interpretation Comme nts PHOSPHORUS (test code = 6918463971) 3.2 mg/dL 2.5-5.0 Lab Interpretation (test cod e = 29272-1) Normal [facility] HospitalMagnesium2024-03-15 11:19:27* Test Item Value Reference Range Interpretation Comme nts MAGNESIUM (test code = 2751954644) 2.3 mg/dL 1.7-2.4 Lab Interpretation (test cod e = 89655-9) Normal [facility] Metabolic Panel (NA, K, CL, CO2, GLUCOSE, BUN, CREATININE, CA)2023-07-11 11:19:27* Test Item Value Reference Range Interpretation Comme nts NA (test code = 6915180531) 141 mmol/L 135-145 K (test code = 2978509840) 4.8 mmol/L 3.5-5.0 CL (test code = 9636962365) 116 mmol/L 98-108 H CO2 TOTAL (test code = 9526926058) 22 mmol/L 23-31 L AGAP (test code = 2352891659) 3 2-16 BUN (test code = 2300365558) 32 mg/dL 7-23 H GLUCOSE (test code = 3540025331) 128 mg/dL 70-110 H CREATININE (test code = 2160-0) 1.49 mg/dL 0.60-1.25 H CALCIUM (test code = 1437601649) 8.8 mg/dL 8.6-10.6 eGFR (test code = 18895-9) 51.1 mL/min/1.73m2 CKD-EPI eGFR (2020). Assuming creatinine has been stable day-to-day for at least three months, the eGFR indicates Category G3a (45 - 59 mL/min/1.73 m2) Lab Interpretation (test code = 52580-8) Abnormal [facility] without [id number] 11:13:27* Test Item Value Reference Range Interpretation [...] 98 150-328 L MPV (test code = 35222-6) 11.5 fL 9.8-13.0 RDW-CV (test code = 788-0) 17.3 % 12.1-15.4 H RDW-SD (test code = 21361-2) 59.7 fL 38.5-51.6 H NRBC x10^3 (test code = 8127575649) See_Comment [Automated [employer] ge] The system which generated this result transmitted reference range: 10*3/?L. The reference range was not used to interpret this result as normal/abnormal. NRBC/100 WBC (test code = 2971128857) 0.0 0.0-10.0 IPF % (test code = 9855456273) 5.0 % 1.2-10.7 Platelet count measured by fluorescence method. Lab Interpretation (test code = 05597-2) Abnormal [facility] GLUCOSE (AUTOMATED)2023-07-11 10:18:31* Test Item Value Reference Range Interpretation Comme nts POCT GLU (test code = 2791207769) 146 mg/dL 70-110 H Lab Interpretation (test cod e = 29578-7) Abnormal [facility] GLUCOSE (AUTOMATED)2023-07-11 07:12:03* Test Item Value Reference Range Interpretation Comme nts POCT GLU (test code = 1812325898) 154 mg/dL 70-110 H Lab Interpretation (test cod e = 21269-1) Abnormal [facility] GLUCOSE (AUTOMATED)2023-07-11 02:00:04* Test Item Value Reference Range Interpretation Comme nts POCT GLU (test code = 4675440522) 149 mg/dL 70-110 H Lab Interpretation (test cod e = 62644-1) Abnormal [facility] GLUCOSE (AUTOMATED)2023-07-10 22:15:05* Test Item Value Reference Range Interpretation Comme nts POCT GLU (test code = 8408693567) 145 mg/dL 70-110 H Notified Provide r Lab Interpretation (test code = 17264-7) [facility] [id number] 18:08:31EXAM: XR KUB HISTORY: 68 years-old Male; Abdominal pain/distension . TECHNIQUE: Frontal views of the abdomen and pelvis COMPARISON: KUB 07/08/[address] abdomen pelvis 04/15/2022 [facility] GLUCOSE (AUTOMATED)2023-07-10 16:43:45* Test Item Value Reference Range Interpretation Comme nts POCT GLU (test code = 6393908083) 140 mg/dL 70-110 H Notified Provide r Lab Interpretation (test code = 04526-7) Abnormal [facility] GLUCOSE (AUTOMATED)2023-07-10 12:57:45* Test Item Value Reference Range Interpretation Comme [facility] POCT GLU (test code = 8413637482) 157 mg/dL 70-110 H Lab Interpretation (test cod e = 22603-4) Abnormal [facility] without [id number] 10:09:51* Test Item Value Reference Range Interpretation Comme [facility] WBC (test code = 6690-2) 10.54 4.20-10.70 [...] 116 150-328 L MPV (test code = 21716-0) 11.6 fL 9.8-13.0 RDW-CV (test code = 788-0) 17.9 % 12.1-15.4 H RDW-SD (test code = 40344-4) 57.2 fL 38.5-51.6 H NRBC x10^3 (test code = 4687392821) 0.02 See_Comment [Automated Abcama ge] The system which generated this result transmitted reference range: 10*3/?L. The reference range was not used to interpret this result as normal/abnormal. NRBC/100 WBC (test code = 0645150006) 0.2 0.0-10.0 IPF % (test code = 1299128653) 6.0 % 1.2-10.7 Platelet count measured by fluorescence method. Lab Interpretation (test code = 31205-2) [facility] 10:08:30* Test Item Value Reference Range Interpretation Comme nts PHOSPHORUS (test code = 6530154866) 3.0 mg/dL 2.5-5.0 Lab Interpretation (test cod e = 75073-0) Normal [facility]24-[facility] 10:08:30* Test Item Value Reference Range Interpretation Comme nts MAGNESIUM (test code = 1639970941) 2.6 mg/dL 1.7-2.4 H Lab Interpretation (test cod e = 28376-9) [facility]normal [facility] (NA, K, CL, CO2, GLUCOSE, BUN, CREATININE, CA)2023-07-10 10:08:30* Test Item Value Reference Range Interpretation Comme nts NA (test code = 8024146638) 138 mmol/L 135-145 K (test code = 7983016564) 4.2 mmol/L 3.5-5.0 CL (test code = 3469192147) 112 mmol/L 98-108 H CO2 TOTAL (test code = 2091206780) 22 mmol/L 23-31 L AGAP (test code = 2759927680) 4 2-16 BUN (test code = 0271931327) 23 mg/dL 7-23 GLUCOSE (test code = 8267808065) 183 mg/dL 70-110 H CREATININE (test code = 2160-0) 1.64 mg/dL 0.60-1.25 H CALCIUM (test code = 1392538747) 8.7 mg/dL 8.6-10.6 eGFR (test code = 63904-9) 45.6 mL/min/1.73m2 CKD-EPI eGFR (2020). Assuming creatinine has been stable day-to-day for at least three months, the eGFR indicates Category G3a (45 - 59 mL/min/1.73 m2) Lab Interpretation (test code = 37785-0) [facility]normal [facility] 20 + Lactic Acid [id number] 09:29:59* Test Item Value Reference Range Interpretation Comme nts PH (test code = 2) 7.39 7.35-7.45 PCO2 (test code = 2935127514) 36 35-45 PO2 (test code = 4185678432) 67 80-100 L HCO3 (test code = 6466714436) 21 22-26 L BE (test code = 4996863846) -3.5 -3.0-3.0 L THB (test code = 3385896799) 8.7 g/dL 13.5-18.0 L %O2HB (test code = 3840698091) 92.8 % 94.0-99.0 L %COHB ART (test code = 2288610021) 0.4 % 0.0-1.5 %METHB ART (test code = 5302420684) 0.3 % 0.4-1.5 L VOL%O2 ART (test code = 5907496684) 11.4 % 15.0-23.0 L NA (test code = 7058054845) 138 mmol/L 135-145 K+ (test code = 2329706687) 4.2 mmol/L 3.5-5.0 AC CA IONZ (test code = 9867628655) 4.80 mg/dL 4.50-5.30 GLUCOSE (test code = 9329242760) 182 mg/dL 70-110 H LACTIC ACID (test code = 6735376627) 1.47 mmol/L 0.50-2.20 Lab Interpretation (test cod e = 49098-3) Abnormal [facility] GLUCOSE (AUTOMATED)2023-07-10 05:27:55* Test Item Value Reference Range Interpretation Comme nts POCT GLU (test code = 8315278454) 180 mg/dL 70-110 H Lab Interpretation (test cod e = 14179-1) Abnormal [facility] GLUCOSE (AUTOMATED)2023-07-10 01:48:25* Test Item Value Reference Range Interpretation Comme nts POCT GLU (test code = 3401657444) 146 mg/dL 70-110 H Lab Interpretation (test cod e = 75049-8) [facility]normal [facility] 20 + Lactic Acid [id number] 17:57:01* Test Item Value Reference Range Interpretation Comme nts PH (test code = 2) 7.40 7.35-7.45 PCO2 (test code = 2755830616) 32 35-45 L PO2 (test code = 7973293477) 138 80-100 H HCO3 (test code = 7163677061) 20 22-26 L BE (test code = 6996965808) -4.5 -3.0-3.0 L THB (test code = 8864073025) 8.6 g/dL 13.5-18.0 L %O2HB (test code = 8814167089) 98.2 % 94.0-99.0 %COHB ART (test code = 9333914262) 0.0 % 0.0-1.5 %METHB ART (test code = 9709630601) 0.3 % 0.4-1.5 L VOL%O2 ART (test code = 2620897537) 12.2 % 15.0-23.0 L NA (test code = 6453006318) 139 mmol/L 135-145 K+ (test code = 3050792782) 4.2 mmol/L 3.5-5.0 AC CA IONZ (test code = 7018159828) 4.70 mg/dL 4.50-5.30 GLUCOSE (test code = 7649963695) 124 mg/dL 70-110 H LACTIC ACID (test code = 7297456306) 1.13 mmol/L 0.50-2.20 Lab Interpretation (test cod e = 52216-0) Abnormal [facility] + Lactic Acid [id number] 17:57:01* Test Item Value Reference Range Interpretation Comme nts PH (test code = 2) 7.40 7.35-7.45 PCO2 (test code = 4119353188) 32 35-45 L PO2 (test code = 9806545773) 138 80-100 H HCO3 (test code = 8780152155) 20 22-26 L BE (test code = 2685989244) -4.5 -3.0-3.0 L THB (test code = 6699591143) 8.6 g/dL 13.5-18.0 L %O2HB (test code = 8274874687) 98.2 % 94.0-99.0 %COHB ART (test code = 3946925552) 0.0 % 0.0-1.5 %METHB ART (test code = 6588598084) 0.3 % 0.4-1.5 L VOL%O2 ART (test code = 5899471662) 12.2 % 15.0-23.0 L NA (test code = 9907000659) 139 mmol/L 135-145 K+ (test code = 1546449848) 4.2 mmol/L 3.5-5.0 AC CA IONZ (test code = 7574600804) 4.70 mg/dL 4.50-5.30 GLUCOSE (test code = 2794583643) 124 mg/dL 70-110 H LACTIC ACID (test code = 3221237107) 1.13 mmol/L 0.50-2.20 Lab Interpretation (test cod e = 69089-2) [facility]normal [facility] + Lactic Acid [id number] 17:57:01* Test Item Value Reference Range Interpretation Comme nts PH (test code = 2) 7.40 7.35-7.45 PCO2 (test code = 2115191455) 32 35-45 L PO2 (test code = 5399288221) 138 80-100 H HCO3 (test code = 8972317113) 20 22-26 L BE (test code = 6528786328) -4.5 -3.0-3.0 L THB (test code = 1859725573) 8.6 g/dL 13.5-18.0 L %O2HB (test code = 4569602369) 98.2 % 94.0-99.0 %COHB ART (test code = 8376031762) 0.0 % 0.0-1.5 %METHB ART (test code = 8972610160) 0.3 % 0.4-1.5 L VOL%O2 ART (test code = 5761401920) 12.2 % 15.0-23.0 L NA (test code = 8225360673) 139 mmol/L 135-145 K+ (test code = 0824375887) 4.2 mmol/L 3.5-5.0 AC CA IONZ (test code = 7196510407) 4.70 mg/dL 4.50-5.30 GLUCOSE (test code = 8903618590) 124 mg/dL 70-110 H LACTIC ACID (test code = 5631098314) 1.13 mmol/L 0.50-2.20 Lab Interpretation (test cod e = 97540-9) Abnormal [facility] 1 [id number] 13:58:21COMPARISON : 07[facility]08[id number] 13:58:21COMPARISON : 07/08/2023 HISTORY: s/p open heart surgery [facility] 1 Ostl9504-06-49 13:58:21COMPARISON : [facility]08[facility] [id number] 13:42:53COMPARISON: 07/08/2023 [facility] [id number] 13:42:53 COMPARISON: 07/08/2023 [facility] [id number] 13:42:53COMPARISON: 07/08/2023 [facility] 13:24:29* Test Item Value Reference Range Interpretation Comme nts POCT GLU (test code = 1262181757) 150 mg/dL 70-110 H Lab Interpretation (test cod e = 89640-1) Abnormal [facility] GLUCOSE (AUTOMATED)2023-07-09 13:24:29* Test Item Value Reference Range Interpretation Comme nts POCT GLU (test code = 5842955030) 150 mg/dL 70-110 H Lab Interpretation (test cod e = 05062-5) Abnormal [facility] GLUCOSE (AUTOMATED)2023-07-09 13:24:29* Test Item Value Reference Range Interpretation Comme nts POCT GLU (test code = 5327032322) 150 mg/dL 70-110 H Lab Interpretation (test cod e = 39260-2) Abnormal [facility] with Vtdk3871-38-55 10:06:06* Test Item Value Reference Range Interpretation [...] 34.1 g/dL 31.2-35.0 RDW-SD (test code = 26674-4) 55.8 fL 38.5-51.6 H RDW-CV (test code = 788-0) 17.2 % 12.1-15.4 H PLT (test code = 777-3) 117 150-328 L MPV (test code = 28634-6) 11.6 fL 9.8-13.0 IPF % (test code = 7460055280) 5.0 % 1.2-10.7 Platelet count measured by fluorescence method. NRBC/100 WBC (test code = 4814355289) 0.0 0.0-10.0 NRBC x10^3 (test code = 7807023510) See_Comment [Automated Abcama ge] The system which generated this result transmitted reference range: 10*3/?L. The reference range was not used to interpret this result as normal/abnormal. GRAN MAT (NEUT) % (test code = 770-8) 84.6 % IMM GRAN % (test code = 9734743913) 0.70 % LYMPH % (test code = 736-9) 4.2 % MONO % (test code = 5905-5) 10.4 % EOS % (test code = 713-8) 0.0 % BASO % (test code = 706-2) 0.1 % GRAN MAT x10^3(ANC) (test code = 6523128263) 7.63 10*3/uL 1.99-6.95 H IMM GRAN x10^3 (test code = 3128802766) 0.06 10*3/uL 0.00-0.06 LYMPH x10^3 (test code = 731-0) 0.38 10*3/uL 1.09-3.23 L MONO x10^3 (test code = 742-7) 0.94 10*3/uL 0.36-1.02 EOS x10^3 (test code = 711-2) 0.06-0.53 L BASO x10^3 (test code = 704-7) 0.01-0.09 Lab Interpretation (test code = 89401-5) Abnormal [facility] with [id number] 10:06:06* Test Item Value Reference Range Interpretation [...] 34.1 g/dL 31.2-35.0 RDW-SD (test code = 45055-2) 55.8 fL 38.5-51.6 H RDW-CV (test code = 788-0) 17.2 % 12.1-15.4 H PLT (test code = 777-3) 117 150-328 L MPV (test code = 88279-3) 11.6 fL 9.8-13.0 IPF % (test code = 4072552772) 5.0 % 1.2-10.7 Platelet count measured by fluorescence method. NRBC/100 WBC (test code = 1404309919) 0.0 0.0-10.0 NRBC x10^3 (test code = 1242948001) See_Comment [Automated Abcama ge] The system which generated this result transmitted reference range: 10*3/?L. The reference range was not used to interpret this result as normal/abnormal. GRAN MAT (NEUT) % (test code = 770-8) 84.6 % IMM GRAN % (test code = 0250269787) 0.70 % LYMPH % (test code = 736-9) 4.2 % MONO % (test code = 5905-5) 10.4 % EOS % (test code = 713-8) 0.0 % BASO % (test code = 706-2) 0.1 % GRAN MAT x10^3(ANC) (test code = 4039607996) 7.63 10*3/uL 1.99-6.95 H IMM GRAN x10^3 (test code = 0688569603) 0.06 10*3/uL 0.00-0.06 LYMPH x10^3 (test code = 731-0) 0.38 10*3/uL 1.09-3.23 L MONO x10^3 (test code = 742-7) 0.94 10*3/uL 0.36-1.02 EOS x10^3 (test code = 711-2) 0.06-0.53 L BASO x10^3 (test code = 704-7) 0.01-0.09 Lab Interpretation (test code = 60824-4) Abnormal [facility] with Pezq8008-09-60 10:06:06* Test Item Value Reference Range Interpretation [...] 34.1 g/dL 31.2-35.0 RDW-SD (test code = 03620-5) 55.8 fL 38.5-51.6 H RDW-CV (test code = 788-0) 17.2 % 12.1-15.4 H PLT (test code = 777-3) 117 150-328 L MPV (test code = 25230-4) 11.6 fL 9.8-13.0 IPF % (test code = 6154100608) 5.0 % 1.2-10.7 Platelet count measured by fluorescence method. NRBC/100 WBC (test code = 9744135687) 0.0 0.0-10.0 NRBC x10^3 (test code = 5346918823) See_Comment [Automated messa ge] The system which generated this result transmitted reference range: 10*3/?L. The reference range was not used to interpret this result as normal/abnormal. GRAN MAT (NEUT) % (test code = 770-8) 84.6 % IMM GRAN % (test code = 1273699891) 0.70 % LYMPH % (test code = 736-9) 4.2 % MONO % (test code = 5905-5) 10.4 % EOS % (test code = 713-8) 0.0 % BASO % (test code = 706-2) 0.1 % GRAN MAT x10^3(ANC) (test code = 9715581689) 7.63 10*3/uL 1.99-6.95 H IMM GRAN x10^3 (test code = 7398101051) 0.06 10*3/uL 0.00-0.06 LYMPH x10^3 (test code = 731-0) 0.38 10*3/uL 1.09-3.23 L MONO x10^3 (test code = 742-7) 0.94 10*3/uL 0.36-1.02 EOS x10^3 (test code = 711-2) 0.06-0.53 L BASO x10^3 (test code = 704-7) 0.01-0.09 Lab Interpretation (test code = 67913-4) [facility] 10:03:25* Test Item Value Reference Range Interpretation Comme nts PHOSPHORUS (test code = 2273791146) 3.1 mg/dL 2.5-5.0 Lab Interpretation (test cod e = 13414-0) Normal [facility] 10:03:25* Test Item Value Reference Range Interpretation Comme nts PHOSPHORUS (test code = 1292923618) 3.1 mg/dL 2.5-5.0 Lab Interpretation (test cod e = 10606-4) Normal [facility]2024-[facility]13 10:03:25* Test Item Value Reference Range Interpretation Comme nts PHOSPHORUS (test code = 5918419319) 3.1 mg/dL 2.5-5.0 Lab Interpretation (test cod e = 55880-5) Normal [facility] Metabolic Panel (NA, K, CL, CO2, GLUCOSE, BUN, CREATININE, CA)2023-07-09 10:03:24* Test Item Value Reference Range Interpretation Comme nts NA (test code = 3443402008) 139 mmol/L 135-145 K (test code = 2059391939) 4.6 mmol/L 3.5-5.0 CL (test code = 8003695664) 114 mmol/L 98-108 H CO2 TOTAL (test code = 4295567081) 20 mmol/L 23-31 L AGAP (test code = 7559639502) 5 2-16 BUN (test code = 8207060620) 16 mg/dL 7-23 GLUCOSE (test code = 5891173946) 160 mg/dL 70-110 H CREATININE (test code = 2160-0) 1.43 mg/dL 0.60-1.25 H CALCIUM (test code = 7630815484) 8.5 mg/dL 8.6-10.6 L eGFR (test code = 52637-5) 53.7 mL/min/1.73m2 CKD-EPI eGFR (2020). Assuming creatinine has been stable day-to-day for at least three months, the eGFR indicates Category G3a (45 - 59 mL/min/1.73 m2) Lab Interpretation (test code = 75742-6) [facility] 10:03:24* Test Item Value Reference Range Interpretation Comme nts MAGNESIUM (test code = 3059872333) 3.1 mg/dL 1.7-2.4 H Lab Interpretation (test cod e = 47979-4) Abnormal [facility] Metabolic Panel (NA, K, CL, CO2, GLUCOSE, BUN, CREATININE, CA)2023-07-09 10:03:24* Test Item Value Reference Range Interpretation Comme nts NA (test code = 8315942202) 139 mmol/L 135-145 K (test code = 7101691483) 4.6 mmol/L 3.5-5.0 CL (test code = 3033962245) 114 mmol/L 98-108 H CO2 TOTAL (test code = 3460744825) 20 mmol/L 23-31 L AGAP (test code = 6927437972) 5 2-16 BUN (test code = 1206438338) 16 mg/dL 7-23 GLUCOSE (test code = 1088878407) 160 mg/dL 70-110 H CREATININE (test code = 2160-0) 1.43 mg/dL 0.60-1.25 H CALCIUM (test code = 2934241160) 8.5 mg/dL 8.6-10.6 L eGFR (test code = 36686-7) 53.7 mL/min/1.73m2 CKD-EPI eGFR (2020). Assuming creatinine has been stable day-to-day for at least three months, the eGFR indicates Category G3a (45 - 59 mL/min/1.73 m2) Lab Interpretation (test code = 44431-1) [facility]normal [facility]24-[facility]13 10:03:24* Test Item Value Reference Range Interpretation Comme nts MAGNESIUM (test code = 6947644188) 3.1 mg/dL 1.7-2.4 H Lab Interpretation (test cod e = 82933-6) [facility] (NA, K, CL, CO2, GLUCOSE, BUN, CREATININE, CA)2023-07-09 10:03:24* Test Item Value Reference Range Interpretation Comme nts NA (test code = 9939574453) 139 mmol/L 135-145 K (test code = 0201387864) 4.6 mmol/L 3.5-5.0 CL (test code = 5353639855) 114 mmol/L 98-108 H CO2 TOTAL (test code = 6231616728) 20 mmol/L 23-31 L AGAP (test code = 6380053614) 5 2-16 BUN (test code = 1525495282) 16 mg/dL 7-23 GLUCOSE (test code = 1288223949) 160 mg/dL 70-110 H CREATININE (test code = 2160-0) 1.43 mg/dL 0.60-1.25 H CALCIUM (test code = 8728611235) 8.5 mg/dL 8.6-10.6 L eGFR (test code = 68320-9) 53.7 mL/min/1.73m2 CKD-EPI eGFR (2020). Assuming creatinine has been stable day-to-day for at least three months, the eGFR indicates Category G3a (45 - 59 mL/min/1.73 m2) Lab Interpretation (test code = 10503-8) [facility]normal [facility]24-[facility]13 10:03:24* Test Item Value Reference Range Interpretation Comme nts MAGNESIUM (test code = 4719664433) 3.1 mg/dL 1.7-2.4 H Lab Interpretation (test cod e = 57592-4) [facility]normal [facility]th[facility] Time / [id number] 09:32:57* Test Item Value Reference Range Interpretation Comme nts PROTIME PATIENT (test code = 5964-2) 11.6 10.1-12.6 INR (test code = 6301-6) 1.0 Normal INR <1.1; Warfarin Therapeutic range 2.0 to 3.0 or 2.5 to 3.5, depending upon the indications. Lab Interpretation (test code = 83746-1) Normal [facility] / [id number] 09:32:57* Test Item Value Reference Range Interpretation Comme nts PROTIME PATIENT (test code = 5964-2) 11.6 10.1-12.6 INR (test code = 6301-6) 1.0 Normal INR <1.1; Warfarin Therapeutic range 2.0 to 3.0 or 2.5 to 3.5, depending upon the indications. Lab Interpretation (test code = 45903-6) Normal [facility] / [id number] 09:32:57* Test Item Value Reference Range Interpretation Comme nts PROTIME PATIENT (test code = 5964-2) 11.6 10.1-12.6 INR (test code = 6301-6) 1.0 Normal INR <1.1; Warfarin Therapeutic range 2.0 to 3.0 or 2.5 to 3.5, depending upon the indications. Lab Interpretation (test code = 90517-0) Normal [facility] GLUCOSE (AUTOMATED)2023-07-09 09:10:50* Test Item Value Reference Range Interpretation Comme nts POCT GLU (test code = 0576667049) 186 mg/dL 70-110 H Lab Interpretation (test cod e = 45887-7) Abnormal [facility] GLUCOSE (AUTOMATED)2023-07-09 09:10:50* Test Item Value Reference Range Interpretation Comme nts POCT GLU (test code = 5418716427) 186 mg/dL 70-110 H Lab Interpretation (test cod e = 36517-4) Abnormal [facility] GLUCOSE (AUTOMATED)2023-07-09 09:10:50* Test Item Value Reference Range Interpretation Comme nts POCT GLU (test code = 6128355455) 186 mg/dL 70-110 H Lab Interpretation (test cod e = 66609-8) Abnormal [facility] with [id number] 08:21:30* Test Item Value Reference Range Interpretation [...] 33.6 g/dL 31.2-35.0 RDW-SD (test code = 76642-2) 54.4 fL 38.5-51.6 H RDW-CV (test code = 788-0) 17.0 % 12.1-15.4 H PLT (test code = 777-3) 129 150-328 L MPV (test code = 23966-3) 11.3 fL 9.8-13.0 IPF % (test code = 4494640901) 5.5 % 1.2-10.7 Platelet count measured by fluorescence method. NRBC/100 WBC (test code = 3391067505) 0.0 0.0-10.0 NRBC x10^3 (test code = 7317238750) See_Comment [Automated messa ge] The system which generated this result transmitted reference range: 10*3/?L. The reference range was not used to interpret this result as normal/abnormal. GRAN MAT (NEUT) % (test code = 770-8) 84.4 % IMM GRAN % (test code = 0161684456) 0.50 % LYMPH % (test code = 736-9) 4.1 % MONO % (test code = 5905-5) 10.9 % EOS % (test code = 713-8) 0.0 % BASO % (test code = 706-2) 0.1 % GRAN MAT x10^3(ANC) (test code = 4727255212) 8.37 10*3/uL 1.99-6.95 H IMM GRAN x10^3 (test code = 1875510225) 0.05 10*3/uL 0.00-0.06 LYMPH x10^3 (test code = 731-0) 0.41 10*3/uL 1.09-3.23 L MONO x10^3 (test code = 742-7) 1.08 10*3/uL 0.36-1.02 H EOS x10^3 (test code = 711-2) 0.06-0.53 L BASO x10^3 (test code = 704-7) 0.01-0.09 Lab Interpretation (test code = 06644-5) Abnormal [facility] with [id number] 08:21:30* Test Item Value Reference Range Interpretation [...] 33.6 g/dL 31.2-35.0 RDW-SD (test code = 93788-6) 54.4 fL 38.5-51.6 H RDW-CV (test code = 788-0) 17.0 % 12.1-15.4 H PLT (test code = 777-3) 129 150-328 L MPV (test code = 09145-7) 11.3 fL 9.8-13.0 IPF % (test code = 6538956242) 5.5 % 1.2-10.7 Platelet count measured by fluorescence method. NRBC/100 WBC (test code = 3990912584) 0.0 0.0-10.0 NRBC x10^3 (test code = 0324146778) See_Comment [Automated messa ge] The system which generated this result transmitted reference range: 10*3/?L. The reference range was not used to interpret this result as normal/abnormal. GRAN MAT (NEUT) % (test code = 770-8) 84.4 % IMM GRAN % (test code = 7316832894) 0.50 % LYMPH % (test code = 736-9) 4.1 % MONO % (test code = 5905-5) 10.9 % EOS % (test code = 713-8) 0.0 % BASO % (test code = 706-2) 0.1 % GRAN MAT x10^3(ANC) (test code = 2075356908) 8.37 10*3/uL 1.99-6.95 H IMM GRAN x10^3 (test code = 3553197471) 0.05 10*3/uL 0.00-0.06 LYMPH x10^3 (test code = 731-0) 0.41 10*3/uL 1.09-3.23 L MONO x10^3 (test code = 742-7) 1.08 10*3/uL 0.36-1.02 H EOS x10^3 (test code = 711-2) 0.06-0.53 L BASO x10^3 (test code = 704-7) 0.01-0.09 Lab Interpretation (test code = 99512-9) Abnormal [facility] with [id number] 08:21:30* Test Item Value Reference Range Interpretation [...] 33.6 g/dL 31.2-35.0 RDW-SD (test code = 75799-2) 54.4 fL 38.5-51.6 H RDW-CV (test code = 788-0) 17.0 % 12.1-15.4 H PLT (test code = 777-3) 129 150-328 L MPV (test code = 00632-5) 11.3 fL 9.8-13.0 IPF % (test code = 4785162792) 5.5 % 1.2-10.7 Platelet count measured by fluorescence method. NRBC/100 WBC (test code = 2865310474) 0.0 0.0-10.0 NRBC x10^3 (test code = 4685936003) See_Comment [Automated Abcama ge] The system which generated this result transmitted reference range: 10*3/?L. The reference range was not used to interpret this result as normal/abnormal. GRAN MAT (NEUT) % (test code = 770-8) 84.4 % IMM GRAN % (test code = 7546099469) 0.50 % LYMPH % (test code = 736-9) 4.1 % MONO % (test code = 5905-5) 10.9 % EOS % (test code = 713-8) 0.0 % BASO % (test code = 706-2) 0.1 % GRAN MAT x10^3(ANC) (test code = 1407382902) 8.37 10*3/uL 1.99-6.95 H IMM GRAN x10^3 (test code = 1221586243) 0.05 10*3/uL 0.00-0.06 LYMPH x10^3 (test code = 731-0) 0.41 10*3/uL 1.09-3.23 L MONO x10^3 (test code = 742-7) 1.08 10*3/uL 0.36-1.02 H EOS x10^3 (test code = 711-2) 0.06-0.53 L BASO x10^3 (test code = 704-7) 0.01-0.09 Lab Interpretation (test code = 40656-5) Abnormal [facility] GLUCOSE (AUTOMATED)2023-07-09 07:35:51* Test Item Value Reference Range Interpretation Comme nts POCT GLU (test code = 5849721557) 192 mg/dL 70-110 H Lab Interpretation (test cod e = 19931-4) Abnormal [facility] GLUCOSE (AUTOMATED)2023-07-09 07:35:51* Test Item Value Reference Range Interpretation Comme nts POCT GLU (test code = 8512346974) 192 mg/dL 70-110 H Lab Interpretation (test cod e = 27696-0) Abnormal [facility] GLUCOSE (AUTOMATED)2023-07-09 07:35:51* Test Item Value Reference Range Interpretation Comme nts POCT GLU (test code = 1978517133) 192 mg/dL 70-110 H Lab Interpretation (test cod e = 33176-1) Abnormal [facility] GLUCOSE (AUTOMATED)2023-07-09 04:47:07* Test Item Value Reference Range Interpretation Comme nts POCT GLU (test code = 2421162067) 220 mg/dL 70-110 H Lab Interpretation (test cod e = 18606-8) Abnormal [facility] GLUCOSE (AUTOMATED)2023-07-09 04:47:07* Test Item Value Reference Range Interpretation Comme nts POCT GLU (test code = 5326857644) 220 mg/dL 70-110 H Lab Interpretation (test cod e = 12720-0) [facility]09 04:47:07* Test Item Value Reference Range Interpretation Comme nts POCT GLU (test code = 4618028368) 220 mg/dL 70-110 H Lab Interpretation (test cod e = 82224-6) [facility]normal [facility] RBC (in units), 1 Units 2023-07-09 04:15:12* Test Item Value Reference Range Interpretation Comme nts Cross Match Result (test code = 4409) Compatible ISBT Blood Type Code (test code = 069862) 7300 Unit Blood Type (test code = 4410) B Pos Unit Number (test code = 4411) [id number] Blood Expiration Date & Time (test code = 932297) 762907943133 Status Information (test code = 4412) Issued Product Identification (test code = 4413) Red Blood Cells Product Code (test code = 4414) [id number]formed [address] [facility] Blood [address] Free: [phone] No. [id number] [facility] Packed RBC (in units), 1 Units 2023-07-09 04:15:12* Test Item Value Reference Range Interpretation Comme nts Cross Match Result (test code = 4409) Compatible ISBT Blood Type Code (test code = 805280) 7300 Unit Blood Type (test code = 4410) B Pos Unit Number (test code = 4411) [id number] Blood Expiration Date & Time (test code = 285337) 517875941836 Status Information (test code = 4412) Issued Product Identification (test code = 4413) Red Blood Cells Product Code (test code = 4414) [id number] Performed at [facility] Blood [address] Free: [phone] No. [id number] [facility] Packed RBC (in units), 1 Units 2023-07-09 04:15:12* Test Item Value Reference Range Interpretation Comme nts Cross Match Result (test code = 4409) Compatible ISBT Blood Type Code (test code = 184386) 7300 Unit Blood Type (test code = 4410) B Pos Unit Number (test code = 4411) [id number] Blood Expiration Date & Time (test code = 975201) [id number] Status Information (test code = 4412) Issued Product Identification (test code = 4413) Red Blood Cells Product Code (test code = 4414) [id number] Performed at [facility] Laboratory Services - [facility] Blood [address] [address] Free: [phone] No. [id number] [facility] Metabolic Panel (NA, K, CL, CO2, GLUCOSE, BUN, CREATININE, CA)2023-07-09 03:27:09* Test Item Value Reference Range Interpretation Comme nts NA (test code = 6387984327) 136 mmol/L 135-145 K (test code = 6913579824) 4.9 mmol/L 3.5-5.0 CL (test code = 7861217938) 113 mmol/L 98-108 H CO2 TOTAL (test code = 9717016448) 20 mmol/L 23-31 L AGAP (test code = 2824753433) 3 2-16 BUN (test code = 5229123247) 16 mg/dL 7-23 GLUCOSE (test code = 2375214710) 201 mg/dL 70-110 H CREATININE (test code = 2160-0) 1.42 mg/dL 0.60-1.25 H CALCIUM (test code = 4031361964) 8.2 mg/dL 8.6-10.6 L eGFR (test code = 48532-5) 54.2 mL/min/1.73m2 CKD-EPI eGFR (2020). Assuming creatinine has been stable day-to-day for at least three months, the eGFR indicates Category G3a (45 - 59 mL/min/1.73 m2) Lab Interpretation (test code = 54553-8) Abnormal [facility] Metabolic Panel (NA, K, CL, CO2, GLUCOSE, BUN, CREATININE, CA)2023-07-09 03:27:09* Test Item Value Reference Range Interpretation Comme nts NA (test code = 3478685151) 136 mmol/L 135-145 K (test code = 1798703830) 4.9 mmol/L 3.5-5.0 CL (test code = 7685654707) 113 mmol/L 98-108 H CO2 TOTAL (test code = 3769615708) 20 mmol/L 23-31 L AGAP (test code = 8054635356) 3 2-16 BUN (test code = 7130390224) 16 mg/dL 7-23 GLUCOSE (test code = 2128234173) 201 mg/dL 70-110 H CREATININE (test code = 2160-0) 1.42 mg/dL 0.60-1.25 H CALCIUM (test code = 0218676649) 8.2 mg/dL 8.6-10.6 L eGFR (test code = 91147-0) 54.2 mL/min/1.73m2 CKD-EPI eGFR (2020). Assuming creatinine has been stable day-to-day for at least three months, the eGFR indicates Category G3a (45 - 59 mL/min/1.73 m2) Lab Interpretation (test code = 33836-6) Abnormal [facility] Metabolic Panel (NA, K, CL, CO2, GLUCOSE, BUN, CREATININE, CA)2023-07-09 03:27:09* Test Item Value Reference Range Interpretation Comme nts NA (test code = 1014976989) 136 mmol/L 135-145 K (test code = 6730546341) 4.9 mmol/L 3.5-5.0 CL (test code = 1776004526) 113 mmol/L 98-108 H CO2 TOTAL (test code = 2936791812) 20 mmol/L 23-31 L AGAP (test code = 0382991006) 3 2-16 BUN (test code = 2586281395) 16 mg/dL 7-23 GLUCOSE (test code = 7484152772) 201 mg/dL 70-110 H CREATININE (test code = 2160-0) 1.42 mg/dL 0.60-1.25 H CALCIUM (test code = 8429922447) 8.2 mg/dL 8.6-10.6 L eGFR (test code = 01239-5) 54.2 mL/min/1.73m2 CKD-EPI eGFR (2020). Assuming creatinine has been stable day-to-day for at least three months, the eGFR indicates Category G3a (45 - 59 mL/min/1.73 m2) Lab Interpretation (test code = 50175-2) Abnormal [facility] with Kxza8305-51-51 03:19:45* Test Item Value Reference Range Interpretation [...] 34.5 g/dL 31.2-35.0 RDW-SD (test code = 33011-7) 50.3 fL 38.5-51.6 RDW-CV (test code = 788-0) 15.3 % 12.1-15.4 PLT (test code = 777-3) 111 150-328 L MPV (test code = 02656-6) 11.3 fL 9.8-13.0 IPF % (test code = 4066275461) 5.6 % 1.2-10.7 Platelet count measured by fluorescence method. NRBC/100 WBC (test code = 9158440943) 0.0 0.0-10.0 NRBC x10^3 (test code = 3155027625) See_Comment [Automated Abcama ge] The system which generated this result transmitted reference range: 10*3/?L. The reference range was not used to interpret this result as normal/abnormal. GRAN MAT (NEUT) % (test code = 770-8) 89.5 % IMM GRAN % (test code = 5982346190) 0.60 % LYMPH % (test code = 736-9) 2.9 % MONO % (test code = 5905-5) 6.9 % EOS % (test code = 713-8) 0.0 % BASO % (test code = 706-2) 0.1 % GRAN MAT x10^3(ANC) (test code = 4211316988) 6.19 10*3/uL 1.99-6.95 IMM GRAN x10^3 (test code = 8453860210) 0.04 10*3/uL 0.00-0.06 LYMPH x10^3 (test code = 731-0) 0.20 10*3/uL 1.09-3.23 L MONO x10^3 (test code = 742-7) 0.48 10*3/uL 0.36-1.02 EOS x10^3 (test code = 711-2) 0.06-0.53 L BASO x10^3 (test code = 704-7) 0.01-0.09 Lab Interpretation (test code = 18098-2) Abnormal [facility] with Irsu0175-35-95 03:19:45* Test Item Value Reference Range Interpretation [...] 34.5 g/dL 31.2-35.0 RDW-SD (test code = 10765-6) 50.3 fL 38.5-51.6 RDW-CV (test code = 788-0) 15.3 % 12.1-15.4 PLT (test code = 777-3) 111 150-328 L MPV (test code = 31289-4) 11.3 fL 9.8-13.0 IPF % (test code = 2767663531) 5.6 % 1.2-10.7 Platelet count measured by fluorescence method. NRBC/100 WBC (test code = 1068701766) 0.0 0.0-10.0 NRBC x10^3 (test code = 1169724194) See_Comment [Automated messa ge] The system which generated this result transmitted reference range: 10*3/?L. The reference range was not used to interpret this result as normal/abnormal. GRAN MAT (NEUT) % (test code = 770-8) 89.5 % IMM GRAN % (test code = 3071091628) 0.60 % LYMPH % (test code = 736-9) 2.9 % MONO % (test code = 5905-5) 6.9 % EOS % (test code = 713-8) 0.0 % BASO % (test code = 706-2) 0.1 % GRAN MAT x10^3(ANC) (test code = 0633558684) 6.19 10*3/uL 1.99-6.95 IMM GRAN x10^3 (test code = 3082831528) 0.04 10*3/uL 0.00-0.06 LYMPH x10^3 (test code = 731-0) 0.20 10*3/uL 1.09-3.23 L MONO x10^3 (test code = 742-7) 0.48 10*3/uL 0.36-1.02 EOS x10^3 (test code = 711-2) 0.06-0.53 L BASO x10^3 (test code = 704-7) 0.01-0.09 Lab Interpretation (test code = 02456-0) Abnormal [facility] with Mdwn9190-58-84 03:19:45* Test Item Value Reference Range Interpretation [...] 34.5 g/dL 31.2-35.0 RDW-SD (test code = 27178-6) 50.3 fL 38.5-51.6 RDW-CV (test code = 788-0) 15.3 % 12.1-15.4 PLT (test code = 777-3) 111 150-328 L MPV (test code = 40759-2) 11.3 fL 9.8-13.0 IPF % (test code = 0312390399) 5.6 % 1.2-10.7 Platelet count measured by fluorescence method. NRBC/100 WBC (test code = 8252162111) 0.0 0.0-10.0 NRBC x10^3 (test code = 8932554174) See_Comment [Automated Abcama ge] The system which generated this result transmitted reference range: 10*3/?L. The reference range was not used to interpret this result as normal/abnormal. GRAN MAT (NEUT) % (test code = 770-8) 89.5 % IMM GRAN % (test code = 8245731125) 0.60 % LYMPH % (test code = 736-9) 2.9 % MONO % (test code = 5905-5) 6.9 % EOS % (test code = 713-8) 0.0 % BASO % (test code = 706-2) 0.1 % GRAN MAT x10^3(ANC) (test code = 3917324988) 6.19 10*3/uL 1.99-6.95 IMM GRAN x10^3 (test code = 5179001861) 0.04 10*3/uL 0.00-0.06 LYMPH x10^3 (test code = 731-0) 0.20 10*3/uL 1.09-3.23 L MONO x10^3 (test code = 742-7) 0.48 10*3/uL 0.36-1.02 EOS x10^3 (test code = 711-2) 0.06-0.53 L BASO x10^3 (test code = 704-7) 0.01-0.09 Lab Interpretation (test code = 33018-0) [facility]normal [facility] Time / [id number] 03:07:21* Test Item Value Reference Range Interpretation Comme nts PROTIME PATIENT (test code = 5964-2) 12.4 10.1-12.6 INR (test code = 6301-6) 1.1 Normal INR <1.1; Warfarin Therapeutic range 2.0 to 3.0 or 2.5 to 3.5, depending upon the indications. Lab Interpretation (test code = 48831-7) [facility]* Test Item Value Reference Range Interpretation Comme nts APTT Patient (test code = 3173-2) Lab Interpretation (test cod e = 71230-7) Normal [facility] Time / [id number] 03:07:21* Test Item Value Reference Range Interpretation Comme nts PROTIME PATIENT (test code = 5964-2) 12.4 10.1-12.6 INR (test code = 6301-6) 1.1 Normal INR <1.1; Warfarin Therapeutic range 2.0 to 3.0 or 2.5 to 3.5, depending upon the indications. Lab Interpretation (test code = 03532-0) Normal [place] 25735024-03-13 03:07:21* Test Item Value Reference Range Interpretation Comme nts APTT Patient (test code = 3173-2) Lab Interpretation (test cod e = 77175-3) Normal [facility] Time / [id number] 03:07:21* Test Item Value Reference Range Interpretation Comme nts PROTIME PATIENT (test code = 5964-2) 12.4 10.1-12.6 INR (test code = 6301-6) 1.1 Normal INR <1.1; Warfarin Therapeutic range 2.0 to 3.0 or 2.5 to 3.5, depending upon the indications. Lab Interpretation (test code = 89223-2) Normal [place] 25735024-03-13 03:07:21* Test Item Value Reference Range Interpretation Comme nts APTT Patient (test code = 3173-2) 36 Lab Interpretation (test cod e = 21799-9) Normal [facility] Packed RBC (in units), 2 Units 2023-07-09 02:54:21* Test Item Value Reference Range Interpretation Comme nts Cross Match Result (test code = 4409) Compatible ISBT Blood Type Code (test code = 388715) 7300 Unit Blood Type (test code = 4410) B Pos Unit Number (test code = 4411) [id number] Blood Expiration Date & Time (test code = 722152) 721509379270 Status Information (test code = 4412) Issued Product Identification (test code = 4413) Red Blood Cells Product Code (test code = 4414) [id number] Performed at [facility] Blood [address] Free: [phone] No. [id number] [facility] Packed RBC (in units), 2 Units 2023-07-09 02:54:21* Test Item Value Reference Range Interpretation Comme nts Cross Match Result (test code = 4409) Compatible ISBT Blood Type Code (test code = 114454) 7300 Unit Blood Type (test code = 4410) B Pos Unit Number (test code = 4411) [id number] Blood Expiration Date & Time (test code = 232331) 427506548311 Status Information (test code = 4412) Issued Product Identification (test code = 4413) Red Blood Cells Product Code (test code = 4414) [id number] Performed at [facility] Blood [place] [id number] Free: [phone] No. [id number] [facility] Packed RBC (in units), 2 Units 2023-07-09 02:54:21* Test Item Value Reference Range Interpretation Comme nts Cross Match Result (test code = 4409) Compatible ISBT Blood Type Code (test code = 672470) 7300 Unit Blood Type (test code = 4410) B Pos Unit Number (test code = 4411) [id number] Blood Expiration Date & Time (test code = 817344) 773306735431 Status Information (test code = 4412) Issued Product Identification (test code = 4413) Red Blood Cells Product Code (test code = 4414) [id number] Performed at [facility] B Laboratory Services - [facility] Blood [address] [address]Hjjl Free: [phone] No. [id number] [facility] Panel 20 + Lactic Acid [id number] 02:50:54* Test Item Value Reference Range Interpretation Comme nts PH (test code = 2) 7.40 7.35-7.45 PCO2 (test code = 9813062465) 30 35-45 L PO2 (test code = 1731808117) 172 80-100 H HCO3 (test code = 5283658507) 18 22-26 L BE (test code = 1652341394) -6.2 -3.0-3.0 L THB (test code = 3683924451) 8.1 g/dL 13.5-18.0 LL %O2HB (test code = 3222929444) 98.6 % 94.0-99.0 %COHB ART (test code = 8419589818) 0.2 % 0.0-1.5 %METHB ART (test code = 7024811583) 0.1 % 0.4-1.5 L VOL%O2 ART (test code = 8081231293) 11.7 % 15.0-23.0 L NA (test code = 0112118597) 137 mmol/L 135-145 K+ (test code = 6797609000) 4.8 mmol/L 3.5-5.0 AC CA IONZ (test code = 5895023347) 4.60 mg/dL 4.50-5.30 GLUCOSE (test code = 9413959598) 195 mg/dL 70-110 H LACTIC ACID (test code = 7613183300) 1.15 mmol/L 0.50-2.20 Lab Interpretation (test cod e = 66271-1) [facility]normal [facility] 20 + Lactic Acid [id number] 02:50:54* Test Item Value Reference Range Interpretation Comme nts PH (test code = 2) 7.40 7.35-7.45 PCO2 (test code = 8495492900) 30 35-45 L PO2 (test code = 4457871980) 172 80-100 H HCO3 (test code = 8105060638) 18 22-26 L BE (test code = 6954026102) -6.2 -3.0-3.0 L THB (test code = 0225478557) 8.1 g/dL 13.5-18.0 LL %O2HB (test code = 4360131764) 98.6 % 94.0-99.0 %COHB ART (test code = 9648915090) 0.2 % 0.0-1.5 %METHB ART (test code = 5221300269) 0.1 % 0.4-1.5 L VOL%O2 ART (test code = 8034740254) 11.7 % 15.0-23.0 L NA (test code = 1476560256) 137 mmol/L 135-145 K+ (test code = 2922842316) 4.8 mmol/L 3.5-5.0 AC CA IONZ (test code = 8294900106) 4.60 mg/dL 4.50-5.30 GLUCOSE (test code = 4392407347) 195 mg/dL 70-110 H LACTIC ACID (test code = 4097560070) 1.15 mmol/L 0.50-2.20 Lab Interpretation (test cod e = 23443-6) Abnormal [facility] 20 + Lactic Acid [id number] 02:50:54* Test Item Value Reference Range Interpretation Comme nts PH (test code = 2) 7.40 7.35-7.45 PCO2 (test code = 4584184140) 30 35-45 L PO2 (test code = 0110986767) 172 80-100 H HCO3 (test code = 3779983333) 18 22-26 L BE (test code = 3745443303) -6.2 -3.0-3.0 L THB (test code = 2708074745) 8.1 g/dL 13.5-18.0 LL %O2HB (test code = 4345210694) 98.6 % 94.0-99.0 %COHB ART (test code = 8308896913) 0.2 % 0.0-1.5 %METHB ART (test code = 3887623906) 0.1 % 0.4-1.5 L VOL%O2 ART (test code = 0070161734) 11.7 % 15.0-23.0 L NA (test code = 6764256463) 137 mmol/L 135-145 K+ (test code = 0963068307) 4.8 mmol/L 3.5-5.0 AC CA IONZ (test code = 4265405117) 4.60 mg/dL 4.50-5.30 GLUCOSE (test code = 0575040258) 195 mg/dL 70-110 H LACTIC ACID (test code = 9671502700) 1.15 mmol/L 0.50-2.20 Lab Interpretation (test cod e = 40880-2) Abnormal [facility] Cqzihvrt5544-56-31 02:01:41* Test Item Value Reference Range Interpretation Comme nts PH (test code = 2) 7.35 7.35-7.45 PCO2 (test code = 8270588604) 35 35-45 PO2 (test code = 0923784019) 428 80-100 H BE (test code = 1020349258) -7.0 -3.0-3.0 L HCO3 (test code = 1409449081) 19 22-26 L %O2HB (test code = 5054102043) 100.0 % 95.0-98.0 H NA (test code = 6260783656) 140 mmol/L 135-145 K+ (test code = 1583917882) 4.9 mmol/L 3.5-5.0 AC CA IONZ (test code = 2963718797) 4.90 mg/dL 4.50-5.30 GLUCOSE (test code = 8913826449) 207 mg/dL 70-110 H AC Hematocrit (test code = 9663784904) 20 40-54 LL THB (test code = 5873509533) 6.8 g/dL 13.5-18.0 LL AC TC02 (test code = 1571587046) 20 mmol/L See_Comment L [Automated messa ge] The system which generated this result transmitted reference range: 23-27 mmol/L. The reference range was not used to interpret this result as normal/abnormal. Lab Interpretation (test code = 31898-4) Abnormal [facility] Uaukppet5610-09-20 02:01:41* Test Item Value Reference Range Interpretation Comme nts PH (test code = 2) 7.35 7.35-7.45 PCO2 (test code = 8798794207) 35 35-45 PO2 (test code = 5269999070) 428 80-100 H BE (test code = 2010226322) -7.0 -3.0-3.0 L HCO3 (test code = 3914336708) 19 22-26 L %O2HB (test code = 9436254443) 100.0 % 95.0-98.0 H NA (test code = 4436011682) 140 mmol/L 135-145 K+ (test code = 0441423697) 4.9 mmol/L 3.5-5.0 AC CA IONZ (test code = 1998157423) 4.90 mg/dL 4.50-5.30 GLUCOSE (test code = 4950650144) 207 mg/dL 70-110 H AC Hematocrit (test code = 2962454531) 20 40-54 LL THB (test code = 1574317745) 6.8 g/dL 13.5-18.0 LL AC TC02 (test code = 3749937014) 20 mmol/L See_Comment L [Automated messa ge] The system which generated this result transmitted reference range: 23-27 mmol/L. The reference range was not used to interpret this result as normal/abnormal. Lab Interpretation (test code = 00109-5) Abnormal [facility] Nnnxldtd4608-60-73 02:01:41* Test Item Value Reference Range Interpretation Comme nts PH (test code = 2) 7.35 7.35-7.45 PCO2 (test code = 5717935828) 35 35-45 PO2 (test code = 0967954509) 428 80-100 H BE (test code = 9347210220) -7.0 -3.0-3.0 L HCO3 (test code = 5372301421) 19 22-26 L %O2HB (test code = 1297447388) 100.0 % 95.0-98.0 H NA (test code = 4916972905) 140 mmol/L 135-145 K+ (test code = 5552379001) 4.9 mmol/L 3.5-5.0 AC CA IONZ (test code = 0243830787) 4.90 mg/dL 4.50-5.30 GLUCOSE (test code = 5836193009) 207 mg/dL 70-110 H AC Hematocrit (test code = 2454582713) 20 40-54 LL THB (test code = 2748245751) 6.8 g/dL 13.5-18.0 LL AC TC02 (test code = 1172984077) 20 mmol/L See_Comment L [Automated messa ge] The system which generated this result transmitted reference range: 23-27 mmol/L. The reference range was not used to interpret this result as normal/abnormal. Lab Interpretation (test code = 30122-9) Abnormal [facility] Platelets (in units): 2 Units~ 2023-07-09 01:38:45* Test Item Value Reference Range Interpretation Comme [facility] Unit Blood Type (test code = 4410) B Pos ISBT Blood Type Code (test code = 012670) 7300 Unit Number (test code = 4411) [id number] Blood Expiration Date & Time (test code = 289778) 457977285771 Status Information (test code = 4412) Issued Product Identification (test code = 4413) Platelets Product Code (test code = 4414) [id number] Performed at [facility] Laboratory [facility] Blood [address] Free: [phone] No. [id number] [facility] Platelets (in units): 2 Units~ 2023-07-09 01:38:45* Test Item Value Reference Range Interpretation Comme [facility] Unit Blood Type (test code = 4410) B Pos ISBT Blood Type Code (test code = 006349) 7300 Unit Number (test code = 4411) [id number] Blood Expiration Date & Time (test code = 510520) 600076671361 Status Information (test code = 4412) Issued Product Identification (test code = 4413) Platelets Product Code (test code = 4414) [id number] Performed at [facility] Laboratory [facility] Blood [address] Free: [phone] No. [id number] [facility] 2 Units~ 2023-07-09 01:38:45* Test Item Value Reference Range Interpretation Comme [facility] Unit Blood Type (test code = 4410) B Pos ISBT Blood Type Code (test code = 945686) 7300 Unit Number (test code = 4411) [id number] Blood Expiration Date & Time (test code = 901483) 386124577732 Status Information (test code = 4412) Issued Product Identification (test code = 4413) Platelets Product Code (test code = 4414) [id number] Performed at [facility] B Laboratory Services - [facility] Blood [address] [place], [place] [address]Toll Free: [phone] No. [id number] [facility] (for use with Heparin Infusion)2023-07-09 00:45:08* Test Item Value Reference Range Interpretation Comme [facility] APTT Patient (test code = 3173-2) 106 26-36 Lab Interpretation (test cod e = 95137-9) [facility]2023-07-09 00:45:08* Test Item Value Reference Range Interpretation Comme [facility] APTT Patient (test code = 3173-2) 106 26-36 Lab Interpretation (test cod e = 97407-1) Abnormal [facility] (for use with Heparin Infusion)2023-07-09 00:45:08* Test Item Value Reference Range Interpretation Comme [facility] APTT Patient (test code = 3173-2) 106 26-36 Lab Interpretation (test cod e = 21495-8) Abnormal [facility] HospitalB[facility] Metabolic Panel (NA, K, CL, CO2, GLUCOSE, BUN, CREATININE, CA)2023-07-09 00:29:05* Test Item Value Reference Range Interpretation Comme [facility] NA (test code = 8336352957) 138 mmol/L 135-145 K (test code = 2076019982) 4.8 mmol/L 3.5-5.0 CL (test code = 3284433182) 114 mmol/L 98-108 H CO2 TOTAL (test code = 3624430347) 21 mmol/L 23-31 L AGAP (test code = 7854239392) 3 2-16 BUN (test code = 0854564449) 16 mg/dL 7-23 GLUCOSE (test code = 4736767191) 198 mg/dL 70-110 H CREATININE (test code = 2160-0) 1.39 mg/dL 0.60-1.25 H CALCIUM (test code = 7373483549) 8.5 mg/dL 8.6-10.6 L eGFR (test code = 60461-2) 55.6 mL/min/1.73m2 CKD-EPI eGFR (2020). Assuming creatinine has been stable day-to-day for at least three months, the eGFR indicates Category G3a (45 - 59 mL/min/1.73 m2) Lab Interpretation (test code = 55919-8) [facility]normal [facility] Hospital[facility]esium2024-03-13 00:29:05* Test Item Value Reference Range Interpretation Comme nts MAGNESIUM (test code = 3155196184) 3.4 mg/dL 1.7-2.4 H Lab Interpretation (test cod e = 42849-9) Abnormal [facility] Hospital[facility]osphorus2024-03-13 00:29:05* Test Item Value Reference Range Interpretation Comme nts PHOSPHORUS (test code = 2826078540) 3.4 mg/dL 2.5-5.0 Lab Interpretation (test cod e = 09873-3) Normal [facility] [place] (NA, K, CL, CO2, GLUCOSE, BUN, CREATININE, CA)2023-07-09 00:29:05* Test Item Value Reference Range Interpretation Comme nts NA (test code = 4000903896) 138 mmol/L 135-145 K (test code = 0808945674) 4.8 mmol/L 3.5-5.0 CL (test code = 1912516519) 114 mmol/L 98-108 H CO2 TOTAL (test code = 3468249467) 21 mmol/L 23-31 L AGAP (test code = 4359833198) 3 2-16 BUN (test code = 4557956509) 16 mg/dL 7-23 GLUCOSE (test code = 6771410745) 198 mg/dL 70-110 H CREATININE (test code = 2160-0) 1.39 mg/dL 0.60-1.25 H CALCIUM (test code = 0784891174) 8.5 mg/dL 8.6-10.6 L eGFR (test code = 88006-7) 55.6 mL/min/1.73m2 CKD-EPI eGFR (2020). Assuming creatinine has been stable day-to-day for at least three months, the eGFR indicates Category G3a (45 - 59 mL/min/1.73 m2) Lab Interpretation (test code = 16882-4) [facility]normal [facility]24-[facility]13 00:29:05* Test Item Value Reference Range Interpretation Comme nts MAGNESIUM (test code = 1840548740) 3.4 mg/dL 1.7-2.4 H Lab Interpretation (test cod e = 30628-8) [facility]normal [facility]13 00:29:05* Test Item Value Reference Range Interpretation Comme nts PHOSPHORUS (test code = 1416337315) 3.4 mg/dL 2.5-5.0 Lab Interpretation (test cod e = 88926-3) [facility] (NA, K, CL, CO2, GLUCOSE, BUN, CREATININE, CA)2023-07-09 00:29:05* Test Item Value Reference Range Interpretation Comme nts NA (test code = 9993214438) 138 mmol/L 135-145 K (test code = 1551291157) 4.8 mmol/L 3.5-5.0 CL (test code = 4883340608) 114 mmol/L 98-108 H CO2 TOTAL (test code = 4814233172) 21 mmol/L 23-31 L AGAP (test code = 8692126885) 3 2-16 BUN (test code = 8110731256) 16 mg/dL 7-23 GLUCOSE (test code = 0984256508) 198 mg/dL 70-110 H CREATININE (test code = 2160-0) 1.39 mg/dL 0.60-1.25 H CALCIUM (test code = 6707322103) 8.5 mg/dL 8.6-10.6 L eGFR (test code = 62918-1) 55.6 mL/min/1.73m2 CKD-EPI eGFR (2020). Assuming creatinine has been stable day-to-day for at least three months, the eGFR indicates Category G3a (45 - 59 mL/min/1.73 m2) Lab Interpretation (test code = 24343-6) [facility]normal [facility] HospitalMagnesium2024-03-13 00:29:05* Test Item Value Reference Range Interpretation Comme nts MAGNESIUM (test code = 3484754841) 3.4 mg/dL 1.7-2.4 H Lab Interpretation (test cod e = 53707-6) [facility]normal [facility]osphorus2024-03-13 00:29:05* Test Item Value Reference Range Interpretation Comme nts PHOSPHORUS (test code = 8062987255) 3.4 mg/dL 2.5-5.0 Lab Interpretation (test cod e = 63941-5) [facility]* Test Item Value Reference Range Interpretation Comme nts APTT Patient (test code = 3173-2) 100 26-36 HH Lab Interpretation (test cod e = 77953-4) [facility]normal [facility] HospitalProthrombin Time / [id number] 00:22:39* Test Item Value Reference Range Interpretation Comme nts PROTIME PATIENT (test code = 5964-2) 12.5 10.1-12.6 INR (test code = 6301-6) 1.1 Normal INR <1.1; Warfarin Therapeutic range 2.0 to 3.0 or 2.5 to 3.5, depending upon the indications. Lab Interpretation (test code = 71339-0) [facility] 00:22:39* Test Item Value Reference Range Interpretation Comme nts APTT Patient (test code = 3173-2) 100 26-36 HH Lab Interpretation (test cod e = 04016-6) [facility]normal [facility] HospitalProth[facility]bin Time / [id number] 00:22:39* Test Item Value Reference Range Interpretation Comme nts PROTIME PATIENT (test code = 5964-2) 12.5 10.1-12.6 INR (test code = 6301-6) 1.1 Normal INR <1.1; Warfarin Therapeutic range 2.0 to 3.0 or 2.5 to 3.5, depending upon the indications. Lab Interpretation (test code = 62596-1) [facility] 00:22:39* Test Item Value Reference Range Interpretation Comme [facility] APTT Patient (test code = 3173-2) 100 26-36 HH Lab Interpretation (test cod e = 47845-1) Abnormal [facility] HospitalProthrombin Time / [id number] 00:22:39* Test Item Value Reference Range Interpretation Comme [facility] PROTIME PATIENT (test code = 5964-2) 12.5 10.1-12.6 INR (test code = 6301-6) 1.1 Normal INR <1.1; Warfarin Therapeutic range 2.0 to 3.0 or 2.5 to 3.5, depending upon the indications. Lab Interpretation (test code = 21207-9) Normal [facility] HospitalCbc with [id number] 00:15:47* Test Item Value Reference Range Interpretation [...] 32.8 g/dL 31.2-35.0 RDW-SD (test code = 27256-3) 50.1 fL 38.5-51.6 RDW-CV (test code = 788-0) 14.5 % 12.1-15.4 PLT (test code = 777-3) 103 150-328 L MPV (test code = 90336-2) 11.1 fL 9.8-13.0 IPF % (test code = 8432591697) 5.5 % 1.2-10.7 Platelet count measured by fluorescence method. NRBC/100 WBC (test code = 0862384143) 0.0 0.0-10.0 NRBC x10^3 (test code = 3316511257) See_Comment [Automated messa ge] The system which generated this result transmitted reference range: 10*3/?L. The reference range was not used to interpret this result as normal/abnormal. GRAN MAT (NEUT) % (test code = 770-8) 88.8 % IMM GRAN % (test code = 2918946071) 0.40 % LYMPH % (test code = 736-9) 3.3 % MONO % (test code = 5905-5) 7.4 % EOS % (test code = 713-8) 0.0 % BASO % (test code = 706-2) 0.1 % GRAN MAT x10^3(ANC) (test code = 8708921074) 7.19 10*3/uL 1.99-6.95 H IMM GRAN x10^3 (test code = 8919539661) 0.03 10*3/uL 0.00-0.06 LYMPH x10^3 (test code = 731-0) 0.27 10*3/uL 1.09-3.23 L MONO x10^3 (test code = 742-7) 0.60 10*3/uL 0.36-1.02 EOS x10^3 (test code = 711-2) 0.06-0.53 L BASO x10^3 (test code = 704-7) 0.01-0.09 Lab Interpretation (test code = 65827-6) Abnormal [facility] with [id number] 00:15:47* Test Item Value Reference Range Interpretation [...] 32.8 g/dL 31.2-35.0 RDW-SD (test code = 74991-6) 50.1 fL 38.5-51.6 RDW-CV (test code = 788-0) 14.5 % 12.1-15.4 PLT (test code = 777-3) 103 150-328 L MPV (test code = 11065-7) 11.1 fL 9.8-13.0 IPF % (test code = 1440279597) 5.5 % 1.2-10.7 Platelet count measured by fluorescence method. NRBC/100 WBC (test code = 7317952619) 0.0 0.0-10.0 NRBC x10^3 (test code = 4973076669) See_Comment [Automated Abcama ge] The system which generated this result transmitted reference range: 10*3/?L. The reference range was not used to interpret this result as normal/abnormal. GRAN MAT (NEUT) % (test code = 770-8) 88.8 % IMM GRAN % (test code = 2311477491) 0.40 % LYMPH % (test code = 736-9) 3.3 % MONO % (test code = 5905-5) 7.4 % EOS % (test code = 713-8) 0.0 % BASO % (test code = 706-2) 0.1 % GRAN MAT x10^3(ANC) (test code = 0912019014) 7.19 10*3/uL 1.99-6.95 H IMM GRAN x10^3 (test code = 4320607370) 0.03 10*3/uL 0.00-0.06 LYMPH x10^3 (test code = 731-0) 0.27 10*3/uL 1.09-3.23 L MONO x10^3 (test code = 742-7) 0.60 10*3/uL 0.36-1.02 EOS x10^3 (test code = 711-2) 0.06-0.53 L BASO x10^3 (test code = 704-7) 0.01-0.09 Lab Interpretation (test code = 20165-7) Abnormal [facility] with [id number] 00:15:47* Test Item Value Reference Range Interpretation [...] 32.8 g/dL 31.2-35.0 RDW-SD (test code = 46453-0) 50.1 fL 38.5-51.6 RDW-CV (test code = 788-0) 14.5 % 12.1-15.4 PLT (test code = 777-3) 103 150-328 L MPV (test code = 35505-1) 11.1 fL 9.8-13.0 IPF % (test code = 2381486142) 5.5 % 1.2-10.7 Platelet count measured by fluorescence method. NRBC/100 WBC (test code = 6177005632) 0.0 0.0-10.0 NRBC x10^3 (test code = 1869428060) See_Comment [Automated messa ge] The system which generated this result transmitted reference range: 10*3/?L. The reference range was not used to interpret this result as normal/abnormal. GRAN MAT (NEUT) % (test code = 770-8) 88.8 % IMM GRAN % (test code = 3883516709) 0.40 % LYMPH % (test code = 736-9) 3.3 % MONO % (test code = 5905-5) 7.4 % EOS % (test code = 713-8) 0.0 % BASO % (test code = 706-2) 0.1 % GRAN MAT x10^3(ANC) (test code = 1223644004) 7.19 10*3/uL 1.99-6.95 H IMM GRAN x10^3 (test code = 2482257385) 0.03 10*3/uL 0.00-0.06 LYMPH x10^3 (test code = 731-0) 0.27 10*3/uL 1.09-3.23 L MONO x10^3 (test code = 742-7) 0.60 10*3/uL 0.36-1.02 EOS x10^3 (test code = 711-2) 0.06-0.53 L BASO x10^3 (test code = 704-7) 0.01-0.09 Lab Interpretation (test code = 05866-6) [facility] Test Item Value Reference Range Interpretation Comme nts Fibrinogen (test code = 8532083909) 188 mg/dL 167-453 Lab Interpretation (test cod e = 05581-2) [facility] 00:08:25* Test Item Value Reference Range Interpretation Comme nts Fibrinogen (test code = 2572518822) 188 mg/dL 167-453 Lab Interpretation (test cod e = 17937-2) [facility] 00:08:25* Test Item Value Reference Range Interpretation Comme nts Fibrinogen (test code = 4629818471) 188 mg/dL 167-453 Lab Interpretation (test cod e = 73394-9) Normal [facility] XRay 1 [id number] 23:32:13EXAM: XR ABDOMEN 1 VW HISTORY: 68 years-old Male; Provided indication: OGT placement . TECHNIQUE: Frontal view of the abdomen and pelvis COM[facility]ISON: [facility]23-07-08 23:32:13EXAM: XR ABDOMEN 1 VW HISTORY: 68 years-old Male; Provided indication: OGT placement . TECHNIQUE: Frontal view of the abdomen and pelvis COMPARISON: [facility] [id number] 23:32:13EXAM: XR ABDOMEN 1 VW HISTORY: 68 years-old Male; Provided indication: OGT placement . TECHNIQUE: Frontal view of the abdomen and pelvis COMPARISON: Chest x-ray performed on the same date [facility] 1 View (on admission)2023-07-08 21:10:42 EXAM: XR CHEST 1 VW COMPARISON: 07/07/2023 HISTORY: s/p open heart surgery FINDINGS: The ET tube tipoverlies the upper trachealThe [place]ence catheter tip projects over the right pulmonary [...] Lungs: The lung volumes are ?normal . Rwriw-ls-chvsbtle left pleuraleffusion and moderate left basilar predominant atelectasis. Heart/Mediastinum: Stable global cardiomegaly. Calcified aorta. Post CABGchanges.. Bones and soft tissues: Sternotomy wires in satisfactory alignment.External defibrillator electrodes noted projecting of the lower chest [facility] 1 View (on admission)2023-07-08 21:10:42 EXAM: XR CHEST 1 VW COMPARISON: 07/07/2023 HISTORY: s/p open heart surgery FINDINGS: The ET tube tipoverlies the upper trachealThe [place]adence catheter tip projects over the right pulmonary [...] Lungs: The lung volumes are ?normal . Qmnkv-zw-encyqwtt left pleuraleffusion and moderate left basilar predominant atelectasis. Heart/Mediastinum: Stable global cardiomegaly. Calcified aorta. Post CABGchanges.. Bones and soft tissues: Sternotomy wires in satisfactory alignment.External defibrillator electrodes noted projecting of the lower chest [facility] 1 View (on admission)2023-07-08 21:10:42 EXAM: XR CHEST 1 VW COMPARISON: 07/07/2023 HISTORY: s/p open heart surgery FINDINGS: The ET tube tipoverlies the upper trachealThe [place]ence catheter tip projects over the right pulmonary [...] Lungs: The lung volumes are ?normal . Fvsxi-sz-xykdfukz left pleuraleffusion and moderate left basilar predominant atelectasis. Heart/Mediastinum: Stable global cardiomegaly. Calcified aorta. Post CABGchanges.. Bones and soft tissues: Sternotomy wires in satisfactory alignment.External defibrillator electrodes noted projecting of the lower chest [facility] with [id number] 20:26:53* Test Item Value Reference Range Interpretation [...] 33.3 g/dL 31.2-35.0 RDW-SD (test code = 91948-7) 49.1 fL 38.5-51.6 RDW-CV (test code = 788-0) 14.4 % 12.1-15.4 PLT (test code = 777-3) 91 150-328 L MPV (test code = 24552-9) 11.9 fL 9.8-13.0 IPF % (test code = 1469263504) 6.2 % 1.2-10.7 Platelet count measured by fluorescence method. NRBC/100 WBC (test code = 2942195964) 0.0 0.0-10.0 NRBC x10^3 (test code = 4284504047) See_Comment [Automated Abcama ge] The system which generated this result transmitted reference range: 10*3/?L. The reference range was not used to interpret this result as normal/abnormal. GRAN MAT (NEUT) % (test code = 770-8) 88.3 % IMM GRAN % (test code = 9068795871) 1.20 % LYMPH % (test code = 736-9) 3.1 % MONO % (test code = 5905-5) 6.9 % EOS % (test code = 713-8) 0.4 % BASO % (test code = 706-2) 0.1 % GRAN MAT x10^3(ANC) (test code = 9161777210) 6.56 10*3/uL 1.99-6.95 IMM GRAN x10^3 (test code = 9028057447) 0.09 10*3/uL 0.00-0.06 H LYMPH x10^3 (test code = 731-0) 0.23 10*3/uL 1.09-3.23 L MONO x10^3 (test code = 742-7) 0.51 10*3/uL 0.36-1.02 EOS x10^3 (test code = 711-2) 0.03 10*3/uL 0.06-0.53 L BASO x10^3 (test code = 704-7) 0.01-0.09 Lab Interpretation (test code = 19068-4) Abnormal [facility] with [id number] 20:26:53* Test Item Value Reference Range Interpretation [...] 33.3 g/dL 31.2-35.0 RDW-SD (test code = 43130-2) 49.1 fL 38.5-51.6 RDW-CV (test code = 788-0) 14.4 % 12.1-15.4 PLT (test code = 777-3) 91 150-328 L MPV (test code = 95420-4) 11.9 fL 9.8-13.0 IPF % (test code = 6904129218) 6.2 % 1.2-10.7 Platelet count measured by fluorescence method. NRBC/100 WBC (test code = 0942058830) 0.0 0.0-10.0 NRBC x10^3 (test code = 9054355927) See_Comment [Automated messa ge] The system which generated this result transmitted reference range: 10*3/?L. The reference range was not used to interpret this result as normal/abnormal. GRAN MAT (NEUT) % (test code = 770-8) 88.3 % IMM GRAN % (test code = 0832491965) 1.20 % LYMPH % (test code = 736-9) 3.1 % MONO % (test code = 5905-5) 6.9 % EOS % (test code = 713-8) 0.4 % BASO % (test code = 706-2) 0.1 % GRAN MAT x10^3(ANC) (test code = 5149133365) 6.56 10*3/uL 1.99-6.95 IMM GRAN x10^3 (test code = 6845391245) 0.09 10*3/uL 0.00-0.06 H LYMPH x10^3 (test code = 731-0) 0.23 10*3/uL 1.09-3.23 L MONO x10^3 (test code = 742-7) 0.51 10*3/uL 0.36-1.02 EOS x10^3 (test code = 711-2) 0.03 10*3/uL 0.06-0.53 L BASO x10^3 (test code = 704-7) 0.01-0.09 Lab Interpretation (test code = 60564-4) Abnormal [facility] with [id number] 20:26:53* Test Item Value Reference Range Interpretation [...] 33.3 g/dL 31.2-35.0 RDW-SD (test code = 50351-5) 49.1 fL 38.5-51.6 RDW-CV (test code = 788-0) 14.4 % 12.1-15.4 PLT (test code = 777-3) 91 150-328 L MPV (test code = 96553-8) 11.9 fL 9.8-13.0 IPF % (test code = 9825632008) 6.2 % 1.2-10.7 Platelet count measured by fluorescence method. NRBC/100 WBC (test code = 2681594197) 0.0 0.0-10.0 NRBC x10^3 (test code = 2117931676) See_Comment [Automated Abcama ge] The system which generated this result transmitted reference range: 10*3/?L. The reference range was not used to interpret this result as normal/abnormal. GRAN MAT (NEUT) % (test code = 770-8) 88.3 % IMM GRAN % (test code = 6858019825) 1.20 % LYMPH % (test code = 736-9) 3.1 % MONO % (test code = 5905-5) 6.9 % EOS % (test code = 713-8) 0.4 % BASO % (test code = 706-2) 0.1 % GRAN MAT x10^3(ANC) (test code = 1193092598) 6.56 10*3/uL 1.99-6.95 IMM GRAN x10^3 (test code = 0295406581) 0.09 10*3/uL 0.00-0.06 H LYMPH x10^3 (test code = 731-0) 0.23 10*3/uL 1.09-3.23 L MONO x10^3 (test code = 742-7) 0.51 10*3/uL 0.36-1.02 EOS x10^3 (test code = 711-2) 0.03 10*3/uL 0.06-0.53 L BASO x10^3 (test code = 704-7) 0.01-0.09 Lab Interpretation (test code = 45622-2) [facility] 20:00:06* Test Item Value Reference Range Interpretation Comme nts APTT Patient (test code = 3173-2) 52 26-36 H Lab Interpretation (test cod e = 50074-6) [facility]normal [facility] HospitalFibrinogen2024-[facility]-12 20:00:06* Test Item Value Reference Range Interpretation Comme nts Fibrinogen (test code = 4465259365) 188 mg/dL 167-453 Lab Interpretation (test cod e = 23008-0) Normal [facility] HospitalProthrombin Time / [id number] 20:00:06* Test Item Value Reference Range Interpretation Comme nts PROTIME PATIENT (test code = 5964-2) 13.0 10.1-12.6 H INR (test code = 6301-6) 1.1 Normal INR <1.1; Warfarin Therapeutic range 2.0 to 3.0 or 2.5 to 3.5, depending upon the indications. Lab Interpretation (test code = 49388-6) Abnormal [place] 25735024-03-12 20:00:06* Test Item Value Reference Range Interpretation Comme nts APTT Patient (test code = 3173-2) 52 26-36 H Lab Interpretation (test cod e = 29530-4) [facility]normal [facility]2024-[facility]-12 20:00:06* Test Item Value Reference Range Interpretation Comme nts Fibrinogen (test code = 7096076510) 188 mg/dL 167-453 Lab Interpretation (test cod e = 05932-3) Normal [facility] HospitalProthrombin Time / [id number] 20:00:06* Test Item Value Reference Range Interpretation Comme nts PROTIME PATIENT (test code = 5964-2) 13.0 10.1-12.6 H INR (test code = 6301-6) 1.1 Normal INR <1.1; Warfarin Therapeutic range 2.0 to 3.0 or 2.5 to 3.5, depending upon the indications. Lab Interpretation (test code = 28870-1) [facility]normal [facility]aPTT2024-[facility]-12 20:00:06* Test Item Value Reference Range Interpretation Comme [facility] APTT Patient (test code = 3173-2) 52 26-36 H Lab Interpretation (test cod e = 17251-6) [facility]normal [facility]ogen2024-[facility]-12 20:00:06* Test Item Value Reference Range Interpretation Comme [facility] Fibrinogen (test code = 8544397389) 188 mg/dL 167-453 Lab Interpretation (test cod e = 00765-3) Normal [facility] Hospital[facility]th[facility] Time / [id number] 20:00:06* Test Item Value Reference Range Interpretation Comme [facility] PROTIME PATIENT (test code = 5964-2) 13.0 10.1-12.6 H INR (test code = 6301-6) 1.1 Normal INR <1.1; Warfarin Therapeutic range 2.0 to 3.0 or 2.5 to 3.5, depending upon the indications. Lab Interpretation (test code = 71527-3) [facility]normal [facility] HospitalMagnesium2024-03-12 19:49:16* Test Item Value Reference Range Interpretation Comme [facility] MAGNESIUM (test code = 9024175321) 4.3 mg/dL 1.7-2.4 H Lab Interpretation (test cod e = 50920-4) [facility]normal [facility]2024-[facility]-12 19:49:16* Test Item Value Reference Range Interpretation Comme nts MAGNESIUM (test code = 3194968684) 4.3 mg/dL 1.7-2.4 H Lab Interpretation (test cod e = 53636-1) Abnormal [facility]2024-[facility]-12 19:49:16* Test Item Value Reference Range Interpretation Comme [facility] MAGNESIUM (test code = 7461129251) 4.3 mg/dL 1.7-2.4 H Lab Interpretation (test cod e = 24013-5) Abnormal [facility] Metabolic Panel (NA, K, CL, CO2, GLUCOSE, BUN, CREATININE, CA)2023-07-08 19:48:44* Test Item Value Reference Range Interpretation Comme nts NA (test code = 5326496896) 137 mmol/L 135-145 K (test code = 7722482680) 5.1 mmol/L 3.5-5.0 H CL (test code = 7760154719) 114 mmol/L 98-108 H CO2 TOTAL (test code = 1420518944) 20 mmol/L 23-31 L AGAP (test code = 0462436987) 3 2-16 BUN (test code = 3409789384) 14 mg/dL 7-23 GLUCOSE (test code = 1723182708) 165 mg/dL 70-110 H CREATININE (test code = 2160-0) 1.20 mg/dL 0.60-1.25 CALCIUM (test code = 0925261244) 8.6 mg/dL 8.6-10.6 eGFR (test code = 71808-3) 66.3 mL/min/1.73m2 CKD-EPI eGFR (2020). Assuming creatinine has been stable day-to-day for at least three months, the eGFR indicates Category G2 (60 - 89 mL/min/1.73 m2) Lab Interpretation (test code = 16486-0) [facility]normal [facility]2024-[facility]12 19:48:44* Test Item Value Reference Range Interpretation Comme nts PHOSPHORUS (test code = 9502489809) 2.2 mg/dL 2.5-5.0 L Lab Interpretation (test cod e = 95541-4) Abnormal [facility] Metabolic Panel (NA, K, CL, CO2, GLUCOSE, BUN, CREATININE, CA)2023-07-08 19:48:44* Test Item Value Reference Range Interpretation Comme nts NA (test code = 5850728633) 137 mmol/L 135-145 K (test code = 0438178053) 5.1 mmol/L 3.5-5.0 H CL (test code = 8246036390) 114 mmol/L 98-108 H CO2 TOTAL (test code = 0596297105) 20 mmol/L 23-31 L AGAP (test code = 7870756121) 3 2-16 BUN (test code = 6854419416) 14 mg/dL 7-23 GLUCOSE (test code = 4813061775) 165 mg/dL 70-110 H CREATININE (test code = 2160-0) 1.20 mg/dL 0.60-1.25 CALCIUM (test code = 3482831514) 8.6 mg/dL 8.6-10.6 eGFR (test code = 87521-1) 66.3 mL/min/1.73m2 CKD-EPI eGFR (2020). Assuming creatinine has been stable day-to-day for at least three months, the eGFR indicates Category G2 (60 - 89 mL/min/1.73 m2) Lab Interpretation (test code = 55816-3) [facility]normal [facility] 19:48:44* Test Item Value Reference Range Interpretation Comme nts PHOSPHORUS (test code = 6941996830) 2.2 mg/dL 2.5-5.0 L Lab Interpretation (test cod e = 39163-5) Abnormal [facility] Metabolic Panel (NA, K, CL, CO2, GLUCOSE, BUN, CREATININE, CA)2023-07-08 19:48:44* Test Item Value Reference Range Interpretation Comme nts NA (test code = 6129182812) 137 mmol/L 135-145 K (test code = 1533199785) 5.1 mmol/L 3.5-5.0 H CL (test code = 5232345584) 114 mmol/L 98-108 H CO2 TOTAL (test code = 5793912653) 20 mmol/L 23-31 L AGAP (test code = 8816147592) 3 2-16 BUN (test code = 4817300546) 14 mg/dL 7-23 GLUCOSE (test code = 1466591784) 165 mg/dL 70-110 H CREATININE (test code = 2160-0) 1.20 mg/dL 0.60-1.25 CALCIUM (test code = 4396389417) 8.6 mg/dL 8.6-10.6 eGFR (test code = 86948-8) 66.3 mL/min/1.73m2 CKD-EPI eGFR (2020). Assuming creatinine has been stable day-to-day for at least three months, the eGFR indicates Category G2 (60 - 89 mL/min/1.73 m2) Lab Interpretation (test code = 96350-7) [facility] 19:48:44* Test Item Value Reference Range Interpretation Comme nts PHOSPHORUS (test code = 3133777175) 2.2 mg/dL 2.5-5.0 L Lab Interpretation (test cod e = 95627-1) [facility]normal [facility] + Lactic Acid [id number] 19:22:31* Test Item Value Reference Range Interpretation Comme nts PH (test code = 2) 7.41 7.35-7.45 PCO2 (test code = 9445311576) 31 35-45 L PO2 (test code = 7081978346) 126 80-100 H HCO3 (test code = 1690683264) 20 22-26 L BE (test code = 9132866252) -4.8 -3.0-3.0 L THB (test code = 3483515400) 9.4 g/dL 13.5-18.0 L %O2HB (test code = 2537993787) 98.0 % 94.0-99.0 %COHB ART (test code = 5094526993) 0.3 % 0.0-1.5 %METHB ART (test code = 8601444036) 0.3 % 0.4-1.5 L VOL%O2 ART (test code = 9801206603) 13.2 % 15.0-23.0 L NA (test code = 0755058857) 137 mmol/L 135-145 K+ (test code = 2564035274) 5.0 mmol/L 3.5-5.0 AC CA IONZ (test code = 8977740550) 4.90 mg/dL 4.50-5.30 GLUCOSE (test code = 3121656666) 165 mg/dL 70-110 H LACTIC ACID (test code = 7051468928) 1.11 mmol/L 0.50-2.20 Lab Interpretation (test cod e = 24977-5) [facility] + Lactic Acid [id number] 19:22:31* Test Item Value Reference Range Interpretation Comme nts PH (test code = 2) 7.41 7.35-7.45 PCO2 (test code = 7241597323) 31 35-45 L PO2 (test code = 9207180411) 126 80-100 H HCO3 (test code = 3616102253) 20 22-26 L BE (test code = 8362147667) -4.8 -3.0-3.0 L THB (test code = 8655719251) 9.4 g/dL 13.5-18.0 L %O2HB (test code = 8307959590) 98.0 % 94.0-99.0 %COHB ART (test code = 8883771785) 0.3 % 0.0-1.5 %METHB ART (test code = 3198639295) 0.3 % 0.4-1.5 L VOL%O2 ART (test code = 5483589769) 13.2 % 15.0-23.0 L NA (test code = 2091222393) 137 mmol/L 135-145 K+ (test code = 6669532890) 5.0 mmol/L 3.5-5.0 AC CA IONZ (test code = 8276276019) 4.90 mg/dL 4.50-5.30 GLUCOSE (test code = 0422619842) 165 mg/dL 70-110 H LACTIC ACID (test code = 6172187499) 1.11 mmol/L 0.50-2.20 Lab Interpretation (test cod e = 34133-8) [facility]normal [facility] + Lactic Acid [id number] 19:22:31* Test Item Value Reference Range Interpretation Comme nts PH (test code = 2) 7.41 7.35-7.45 PCO2 (test code = 4651485850) 31 35-45 L PO2 (test code = 3591625323) 126 80-100 H HCO3 (test code = 7963106157) 20 22-26 L BE (test code = 2492744414) -4.8 -3.0-3.0 L THB (test code = 3120618149) 9.4 g/dL 13.5-18.0 L %O2HB (test code = 1458794672) 98.0 % 94.0-99.0 %COHB ART (test code = 7802767630) 0.3 % 0.0-1.5 %METHB ART (test code = 5467223254) 0.3 % 0.4-1.5 L VOL%O2 ART (test code = 1281296734) 13.2 % 15.0-23.0 L NA (test code = 6814379530) 137 mmol/L 135-145 K+ (test code = 4814846297) 5.0 mmol/L 3.5-5.0 AC CA IONZ (test code = 9822576056) 4.90 mg/dL 4.50-5.30 GLUCOSE (test code = 5887396152) 165 mg/dL 70-110 H LACTIC ACID (test code = 9205025527) 1.11 mmol/L 0.50-2.20 Lab Interpretation (test cod e = 62736-2) Abnormal [facility] [id number] 18:02:28* Test Item Value Reference Range Interpretation Comme nts PH (test code = 2) 7.40 7.35-7.45 PCO2 (test code = 8068263371) 32 35-45 L PO2 (test code = 9498383887) 621 80-100 H BE (test code = 6633677027) -5.0 -3.0-3.0 L HCO3 (test code = 9850042907) 19 22-26 L %O2HB (test code = 9996787611) 100.0 % 95.0-98.0 H NA (test code = 6892371846) 137 mmol/L 135-145 K+ (test code = 3669327935) 4.2 mmol/L 3.5-5.0 AC CA IONZ (test code = 6668196069) 3.90 mg/dL 4.50-5.30 L GLUCOSE (test code = 6085669021) 110 mg/dL 70-110 AC Hematocrit (test code = 8502770648) 21 40-54 LL THB (test code = 3739197265) 7.1 g/dL 13.5-18.0 LL AC TC02 (test code = 5831125550) 20 mmol/L See_Comment L [Automated messa ge] The system which generated this result transmitted reference range: 23-27 mmol/L. The reference range was not used to interpret this result as normal/abnormal. Lab Interpretation (test code = 31239-0) Abnormal [facility] Jdtjytvb1331-79-32 18:02:28* Test Item Value Reference Range Interpretation Comme nts PH (test code = 2) 7.36 7.35-7.45 PCO2 (test code = 3708311506) 41 35-45 PO2 (test code = 3166206127) 307 80-100 H BE (test code = 1041809917) -2.0 -3.0-3.0 HCO3 (test code = 2640720119) 23 22-26 %O2HB (test code = 7094581403) 100.0 % 95.0-98.0 H NA (test code = 0679715472) 136 mmol/L 135-145 K+ (test code = 4865834021) 5.6 mmol/L 3.5-5.0 H AC CA IONZ (test code = 1541466808) 4.90 mg/dL 4.50-5.30 GLUCOSE (test code = 7840218745) 156 mg/dL 70-110 H AC Hematocrit (test code = 9780547160) 27 40-54 L THB (test code = 3493314290) 9.2 g/dL 13.5-18.0 L AC TC02 (test code = 0266399891) 24 mmol/L See_Comment [Automated Abcama ge] The system which generated this result transmitted reference range: 23-27 mmol/L. The reference range was not used to interpret this result as normal/abnormal. Lab Interpretation (test code = 93959-9) Abnormal [facility] Ioeiztog8383-62-74 18:02:28* Test Item Value Reference Range Interpretation Comme nts PH (test code = 2) 7.33 7.35-7.45 L PCO2 (test code = 2661117140) 42 35-45 PO2 (test code = 3547420471) 265 80-100 H BE (test code = 5774626289) -4.0 -3.0-3.0 L HCO3 (test code = 3148110012) 22 22-26 %O2HB (test code = 8177276496) 100.0 % 95.0-98.0 H NA (test code = 7813541797) 136 mmol/L 135-145 K+ (test code = 9336620382) 6.3 mmol/L 3.5-5.0 HH AC CA IONZ (test code = 1404087529) 5.10 mg/dL 4.50-5.30 GLUCOSE (test code = 3378555273) 178 mg/dL 70-110 H AC Hematocrit (test code = 2002721167) 28 40-54 L THB (test code = 2732135381) 9.5 g/dL 13.5-18.0 L AC TC02 (test code = 3021672332) 23 mmol/L See_Comment [Automated messa ge] The system which generated this result transmitted reference range: 23-27 mmol/L. The reference range was not used to interpret this result as normal/abnormal. Lab Interpretation (test code = 26816-4) Abnormal [facility] Ffnkpjcg9971-73-75 18:02:28* Test Item Value Reference Range Interpretation Comme nts PH (test code = 2) 7.37 7.35-7.45 PCO2 (test code = 6477646891) 38 35-45 PO2 (test code = 9002601209) 283 80-100 H BE (test code = 5624341333) -4.0 -3.0-3.0 L HCO3 (test code = 5622434168) 22 22-26 %O2HB (test code = 0899765034) 100.0 % 95.0-98.0 H NA (test code = 9799797715) 137 mmol/L 135-145 K+ (test code = 0588299514) 6.1 mmol/L 3.5-5.0 HH AC CA IONZ (test code = 8394373224) 4.90 mg/dL 4.50-5.30 GLUCOSE (test code = 2123359049) 198 mg/dL 70-110 H AC Hematocrit (test code = 2188697250) 27 40-54 L THB (test code = 5302922579) 9.2 g/dL 13.5-18.0 L AC TC02 (test code = 7566016724) 23 mmol/L See_Comment [Automated messa ge] The system which generated this result transmitted reference range: 23-27 mmol/L. The reference range was not used to interpret this result as normal/abnormal. Lab Interpretation (test code = 48000-3) Abnormal [facility] Fyaqubng1601-45-63 18:02:28* Test Item Value Reference Range Interpretation Comme nts PH (test code = 2) 7.37 7.35-7.45 PCO2 (test code = 1613174067) 34 35-45 L PO2 (test code = 8097522828) 283 80-100 H BE (test code = 2484649342) -5.0 -3.0-3.0 L HCO3 (test code = 6800942899) 20 22-26 L %O2HB (test code = 8328667700) 100.0 % 95.0-98.0 H NA (test code = 6630493718) 137 mmol/L 135-145 K+ (test code = 4371971236) 6.4 mmol/L 3.5-5.0 HH AC CA IONZ (test code = 9276751779) 4.80 mg/dL 4.50-5.30 GLUCOSE (test code = 2757076266) 183 mg/dL 70-110 H AC Hematocrit (test code = 8542986092) 26 40-54 L THB (test code = 7003139736) 8.8 g/dL 13.5-18.0 L AC TC02 (test code = 5186542781) 21 mmol/L See_Comment L [Automated messa ge] The system which generated this result transmitted reference range: 23-27 mmol/L. The reference range was not used to interpret this result as normal/abnormal. Lab Interpretation (test code = 10477-9) Abnormal [facility] Ndxjgoqu6950-57-68 18:02:28* Test Item Value Reference Range Interpretation Comme nts PH (test code = 2) 7.31 7.35-7.45 L PCO2 (test code = 6737401573) 38 35-45 PO2 (test code = 9190138825) 154 80-100 H BE (test code = 3427809573) -7.0 -3.0-3.0 L HCO3 (test code = 2637739009) 19 22-26 L %O2HB (test code = 2570822509) 99.0 % 95.0-98.0 H NA (test code = 8493980420) 139 mmol/L 135-145 K+ (test code = 5480669562) 5.5 mmol/L 3.5-5.0 H AC CA IONZ (test code = 3007081833) 5.50 mg/dL 4.50-5.30 H GLUCOSE (test code = 9858268897) 164 mg/dL 70-110 H AC Hematocrit (test code = 7782230586) 20 40-54 LL THB (test code = 3927354695) 6.8 g/dL 13.5-18.0 LL AC TC02 (test code = 4518583573) 20 mmol/L See_Comment L [Automated messa ge] The system which generated this result transmitted reference range: 23-27 mmol/L. The reference range was not used to interpret this result as normal/abnormal. Lab Interpretation (test code = 91685-1) Abnormal [facility] Oauydons7022-30-92 18:02:28* Test Item Value Reference Range Interpretation Comme nts PH (test code = 2) 7.40 7.35-7.45 PCO2 (test code = 7979554056) 32 35-45 L PO2 (test code = 6896162007) 621 80-100 H BE (test code = 9543876681) -5.0 -3.0-3.0 L HCO3 (test code = 1617949602) 19 22-26 L %O2HB (test code = 3918645914) 100.0 % 95.0-98.0 H NA (test code = 1021730826) 137 mmol/L 135-145 K+ (test code = 4159235440) 4.2 mmol/L 3.5-5.0 AC CA IONZ (test code = 6254042009) 3.90 mg/dL 4.50-5.30 L GLUCOSE (test code = 3368150148) 110 mg/dL 70-110 AC Hematocrit (test code = 9208157398) 21 40-54 LL THB (test code = 1983568902) 7.1 g/dL 13.5-18.0 LL AC TC02 (test code = 2491244820) 20 mmol/L See_Comment L [Automated messa ge] The system which generated this result transmitted reference range: 23-27 mmol/L. The reference range was not used to interpret this result as normal/abnormal. Lab Interpretation (test code = 77891-3) Abnormal [facility] Mgfrrhrd9805-53-34 18:02:28* Test Item Value Reference Range Interpretation Comme nts PH (test code = 2) 7.36 7.35-7.45 PCO2 (test code = 3552597953) 41 35-45 PO2 (test code = 5933193809) 307 80-100 H BE (test code = 1890242908) -2.0 -3.0-3.0 HCO3 (test code = 8499323380) 23 22-26 %O2HB (test code = 4487688594) 100.0 % 95.0-98.0 H NA (test code = 6608978561) 136 mmol/L 135-145 K+ (test code = 9174269660) 5.6 mmol/L 3.5-5.0 H AC CA IONZ (test code = 0979087766) 4.90 mg/dL 4.50-5.30 GLUCOSE (test code = 4906367738) 156 mg/dL 70-110 H AC Hematocrit (test code = 7290360696) 27 40-54 L THB (test code = 2725132689) 9.2 g/dL 13.5-18.0 L AC TC02 (test code = 8477547640) 24 mmol/L See_Comment [Automated messa ge] The system which generated this result transmitted reference range: 23-27 mmol/L. The reference range was not used to interpret this result as normal/abnormal. Lab Interpretation (test code = 27412-8) Abnormal [facility] Dappamuo8162-79-25 18:02:28* Test Item Value Reference Range Interpretation Comme nts PH (test code = 2) 7.33 7.35-7.45 L PCO2 (test code = 2955619013) 42 35-45 PO2 (test code = 9621187466) 265 80-100 H BE (test code = 2517576618) -4.0 -3.0-3.0 L HCO3 (test code = 5834531377) 22 22-26 %O2HB (test code = 3077175578) 100.0 % 95.0-98.0 H NA (test code = 0043832220) 136 mmol/L 135-145 K+ (test code = 9722892710) 6.3 mmol/L 3.5-5.0 HH AC CA IONZ (test code = 2420875676) 5.10 mg/dL 4.50-5.30 GLUCOSE (test code = 2805839920) 178 mg/dL 70-110 H AC Hematocrit (test code = 0210271444) 28 40-54 L THB (test code = 5182030490) 9.5 g/dL 13.5-18.0 L AC TC02 (test code = 1977688410) 23 mmol/L See_Comment [Automated messa ge] The system which generated this result transmitted reference range: 23-27 mmol/L. The reference range was not used to interpret this result as normal/abnormal. Lab Interpretation (test code = 64302-8) Abnormal [facility] Ibxqmazm4775-69-44 18:02:28* Test Item Value Reference Range Interpretation Comme nts PH (test code = 2) 7.37 7.35-7.45 PCO2 (test code = 1128353757) 38 35-45 PO2 (test code = 5409744664) 283 80-100 H BE (test code = 6200460755) -4.0 -3.0-3.0 L HCO3 (test code = 2996733851) 22 22-26 %O2HB (test code = 0284602348) 100.0 % 95.0-98.0 H NA (test code = 5532538011) 137 mmol/L 135-145 K+ (test code = 4804573277) 6.1 mmol/L 3.5-5.0 HH AC CA IONZ (test code = 7872451415) 4.90 mg/dL 4.50-5.30 GLUCOSE (test code = 9017066949) 198 mg/dL 70-110 H AC Hematocrit (test code = 7714180815) 27 40-54 L THB (test code = 5438750456) 9.2 g/dL 13.5-18.0 L AC TC02 (test code = 4365756302) 23 mmol/L See_Comment [Automated messa ge] The system which generated this result transmitted reference range: 23-27 mmol/L. The reference range was not used to interpret this result as normal/abnormal. Lab Interpretation (test code = 23807-3) Abnormal [facility] Wkolgxkg7852-81-54 18:02:28* Test Item Value Reference Range Interpretation Comme nts PH (test code = 2) 7.37 7.35-7.45 PCO2 (test code = 4230574322) 34 35-45 L PO2 (test code = 5647829221) 283 80-100 H BE (test code = 5608294724) -5.0 -3.0-3.0 L HCO3 (test code = 9250940270) 20 22-26 L %O2HB (test code = 3432827785) 100.0 % 95.0-98.0 H NA (test code = 4216689316) 137 mmol/L 135-145 K+ (test code = 6220861982) 6.4 mmol/L 3.5-5.0 HH AC CA IONZ (test code = 2425306784) 4.80 mg/dL 4.50-5.30 GLUCOSE (test code = 9760502840) 183 mg/dL 70-110 H AC Hematocrit (test code = 3948514023) 26 40-54 L THB (test code = 3408592165) 8.8 g/dL 13.5-18.0 L AC TC02 (test code = 3902612026) 21 mmol/L See_Comment L [Automated messa ge] The system which generated this result transmitted reference range: 23-27 mmol/L. The reference range was not used to interpret this result as normal/abnormal. Lab Interpretation (test code = 65432-3) Abnormal [facility] Mglvokxw8473-83-76 18:02:28* Test Item Value Reference Range Interpretation Comme nts PH (test code = 2) 7.31 7.35-7.45 L PCO2 (test code = 9023213832) 38 35-45 PO2 (test code = 1460370664) 154 80-100 H BE (test code = 7397156497) -7.0 -3.0-3.0 L HCO3 (test code = 1616536009) 19 22-26 L %O2HB (test code = 6851316185) 99.0 % 95.0-98.0 H NA (test code = 6771310351) 139 mmol/L 135-145 K+ (test code = 7911738441) 5.5 mmol/L 3.5-5.0 H AC CA IONZ (test code = 5785815908) 5.50 mg/dL 4.50-5.30 H GLUCOSE (test code = 3390159350) 164 mg/dL 70-110 H AC Hematocrit (test code = 5566299020) 20 40-54 LL THB (test code = 9081203342) 6.8 g/dL 13.5-18.0 LL AC TC02 (test code = 6791373752) 20 mmol/L See_Comment L [Automated messa ge] The system which generated this result transmitted reference range: 23-27 mmol/L. The reference range was not used to interpret this result as normal/abnormal. Lab Interpretation (test code = 73713-0) Abnormal [facility] Kofvxqfu9432-17-57 18:02:28* Test Item Value Reference Range Interpretation Comme nts PH (test code = 2) 7.40 7.35-7.45 PCO2 (test code = 9140780167) 32 35-45 L PO2 (test code = 5120082308) 621 80-100 H BE (test code = 7381484736) -5.0 -3.0-3.0 L HCO3 (test code = 1803923680) 19 22-26 L %O2HB (test code = 5304969880) 100.0 % 95.0-98.0 H NA (test code = 8028234593) 137 mmol/L 135-145 K+ (test code = 6688219398) 4.2 mmol/L 3.5-5.0 AC CA IONZ (test code = 5101028445) 3.90 mg/dL 4.50-5.30 L GLUCOSE (test code = 9090011817) 110 mg/dL 70-110 AC Hematocrit (test code = 1249551718) 21 40-54 LL THB (test code = 6023665084) 7.1 g/dL 13.5-18.0 LL AC TC02 (test code = 2830052498) 20 mmol/L See_Comment L [Automated messa ge] The system which generated this result transmitted reference range: 23-27 mmol/L. The reference range was not used to interpret this result as normal/abnormal. Lab Interpretation (test code = 59827-6) Abnormal [facility] Kgymdjoi8048-82-92 18:02:28* Test Item Value Reference Range Interpretation Comme nts PH (test code = 2) 7.36 7.35-7.45 PCO2 (test code = 5806295131) 41 35-45 PO2 (test code = 9074849407) 307 80-100 H BE (test code = 9745148412) -2.0 -3.0-3.0 HCO3 (test code = 1871317692) 23 22-26 %O2HB (test code = 4701005343) 100.0 % 95.0-98.0 H NA (test code = 3012375120) 136 mmol/L 135-145 K+ (test code = 1537648735) 5.6 mmol/L 3.5-5.0 H AC CA IONZ (test code = 3645036417) 4.90 mg/dL 4.50-5.30 GLUCOSE (test code = 5959934240) 156 mg/dL 70-110 H AC Hematocrit (test code = 4066700292) 27 40-54 L THB (test code = 5291100743) 9.2 g/dL 13.5-18.0 L AC TC02 (test code = 7485428534) 24 mmol/L See_Comment [Automated messa ge] The system which generated this result transmitted reference range: 23-27 mmol/L. The reference range was not used to interpret this result as normal/abnormal. Lab Interpretation (test code = 24046-7) Abnormal [facility] Jgisrqrp4956-11-62 18:02:28* Test Item Value Reference Range Interpretation Comme nts PH (test code = 2) 7.33 7.35-7.45 L PCO2 (test code = 7582466321) 42 35-45 PO2 (test code = 7468911087) 265 80-100 H BE (test code = 5149193470) -4.0 -3.0-3.0 L HCO3 (test code = 3710294407) 22 22-26 %O2HB (test code = 8372102206) 100.0 % 95.0-98.0 H NA (test code = 7851858816) 136 mmol/L 135-145 K+ (test code = 4507409830) 6.3 mmol/L 3.5-5.0 HH AC CA IONZ (test code = 3497820157) 5.10 mg/dL 4.50-5.30 GLUCOSE (test code = 0069808557) 178 mg/dL 70-110 H AC Hematocrit (test code = 9482814015) 28 40-54 L THB (test code = 2670666347) 9.5 g/dL 13.5-18.0 L AC TC02 (test code = 6644441830) 23 mmol/L See_Comment [Automated messa ge] The system which generated this result transmitted reference range: 23-27 mmol/L. The reference range was not used to interpret this result as normal/abnormal. Lab Interpretation (test code = 24571-7) Abnormal [facility] Linouobu8756-74-30 18:02:28* Test Item Value Reference Range Interpretation Comme nts PH (test code = 2) 7.37 7.35-7.45 PCO2 (test code = 6410852524) 38 35-45 PO2 (test code = 3496953708) 283 80-100 H BE (test code = 3499281587) -4.0 -3.0-3.0 L HCO3 (test code = 6827943440) 22 22-26 %O2HB (test code = 3703303960) 100.0 % 95.0-98.0 H NA (test code = 7171204863) 137 mmol/L 135-145 K+ (test code = 4560959618) 6.1 mmol/L 3.5-5.0 HH AC CA IONZ (test code = 2577435929) 4.90 mg/dL 4.50-5.30 GLUCOSE (test code = 5154225610) 198 mg/dL 70-110 H AC Hematocrit (test code = 9758591889) 27 40-54 L THB (test code = 7868693666) 9.2 g/dL 13.5-18.0 L AC TC02 (test code = 8685238825) 23 mmol/L See_Comment [Automated messa ge] The system which generated this result transmitted reference range: 23-27 mmol/L. The reference range was not used to interpret this result as normal/abnormal. Lab Interpretation (test code = 59333-9) Abnormal [facility] Eolgpndu2846-60-46 18:02:28* Test Item Value Reference Range Interpretation Comme nts PH (test code = 2) 7.37 7.35-7.45 PCO2 (test code = 8400403362) 34 35-45 L PO2 (test code = 9379768036) 283 80-100 H BE (test code = 8951793592) -5.0 -3.0-3.0 L HCO3 (test code = 2551393930) 20 22-26 L %O2HB (test code = 5783765724) 100.0 % 95.0-98.0 H NA (test code = 6314475375) 137 mmol/L 135-145 K+ (test code = 6937232997) 6.4 mmol/L 3.5-5.0 HH AC CA IONZ (test code = 8663725636) 4.80 mg/dL 4.50-5.30 GLUCOSE (test code = 8874195063) 183 mg/dL 70-110 H AC Hematocrit (test code = 1215166768) 26 40-54 L THB (test code = 8784504815) 8.8 g/dL 13.5-18.0 L AC TC02 (test code = 7136459387) 21 mmol/L See_Comment L [Automated messa ge] The system which generated this result transmitted reference range: 23-27 mmol/L. The reference range was not used to interpret this result as normal/abnormal. Lab Interpretation (test code = 96222-7) Abnormal [facility] Nzluqhpe9139-59-82 18:02:28* Test Item Value Reference Range Interpretation Comme nts PH (test code = 2) 7.31 7.35-7.45 L PCO2 (test code = 1595180901) 38 35-45 PO2 (test code = 7564119890) 154 80-100 H BE (test code = 1123558920) -7.0 -3.0-3.0 L HCO3 (test code = 5918098479) 19 22-26 L %O2HB (test code = 6210089416) 99.0 % 95.0-98.0 H NA (test code = 6344032936) 139 mmol/L 135-145 K+ (test code = 0757153238) 5.5 mmol/L 3.5-5.0 H AC CA IONZ (test code = 2867135543) 5.50 mg/dL 4.50-5.30 H GLUCOSE (test code = 6864232318) 164 mg/dL 70-110 H AC Hematocrit (test code = 0934579696) 20 40-54 LL THB (test code = 9459192228) 6.8 g/dL 13.5-18.0 LL AC TC02 (test code = 5654587517) 20 mmol/L See_Comment L [Automated messa ge] The system which generated this result transmitted reference range: 23-27 mmol/L. The reference range was not used to interpret this result as normal/abnormal. Lab Interpretation (test code = 28161-9) Abnormal [facility] Wusphzrx9967-67-79 18:02:22* Test Item Value Reference Range Interpretation Comme nts PH (test code = 2) 7.38 7.35-7.45 PCO2 (test code = 0064013537) 38 35-45 PO2 (test code = 7452443320) 127 80-100 H BE (test code = 5088138879) -3.0 -3.0-3.0 HCO3 (test code = 1727447891) 23 22-26 %O2HB (test code = 4971202542) 99.0 % 95.0-98.0 H NA (test code = 3286199962) 138 mmol/L 135-145 K+ (test code = 7759749765) 3.7 mmol/L 3.5-5.0 AC CA IONZ (test code = 7583209827) 5.70 mg/dL 4.50-5.30 H GLUCOSE (test code = 0338285165) 101 mg/dL 70-110 AC Hematocrit (test code = 6994865184) 31 40-54 L THB (test code = 6377138693) 10.5 g/dL 13.5-18.0 L AC TC02 (test code = 5253476835) 24 mmol/L See_Comment [Automated messa ge] The system which generated this result transmitted reference range: 23-27 mmol/L. The reference range was not used to interpret this result as normal/abnormal. Lab Interpretation (test code = 60695-6) Abnormal [facility] Vnznfxfr3210-91-34 18:02:22* Test Item Value Reference Range Interpretation Comme nts PH (test code = 2) 7.38 7.35-7.45 PCO2 (test code = 9458682924) 38 35-45 PO2 (test code = 1100455870) 127 80-100 H BE (test code = 0642984742) -3.0 -3.0-3.0 HCO3 (test code = 1888444590) 23 22-26 %O2HB (test code = 4459795513) 99.0 % 95.0-98.0 H NA (test code = 3657190075) 138 mmol/L 135-145 K+ (test code = 9526068472) 3.7 mmol/L 3.5-5.0 AC CA IONZ (test code = 0549539784) 5.70 mg/dL 4.50-5.30 H GLUCOSE (test code = 4758822486) 101 mg/dL 70-110 AC Hematocrit (test code = 1349536581) 31 40-54 L THB (test code = 7083759732) 10.5 g/dL 13.5-18.0 L AC TC02 (test code = 7668597171) 24 mmol/L See_Comment [Automated Abcama ge] The system which generated this result transmitted reference range: 23-27 mmol/L. The reference range was not used to interpret this result as normal/abnormal. Lab Interpretation (test code = 50437-5) Abnormal [facility] Nzdoivyg2161-16-31 18:02:22* Test Item Value Reference Range Interpretation Comme nts PH (test code = 2) 7.38 7.35-7.45 PCO2 (test code = 2463319919) 38 35-45 PO2 (test code = 4511317637) 127 80-100 H BE (test code = 1886111177) -3.0 -3.0-3.0 HCO3 (test code = 3418842605) 23 22-26 %O2HB (test code = 9535919254) 99.0 % 95.0-98.0 H NA (test code = 4965882508) 138 mmol/L 135-145 K+ (test code = 8523390217) 3.7 mmol/L 3.5-5.0 AC CA IONZ (test code = 5128220334) 5.70 mg/dL 4.50-5.30 H GLUCOSE (test code = 8739385737) 101 mg/dL 70-110 AC Hematocrit (test code = 2418262954) 31 40-54 L THB (test code = 7383442148) 10.5 g/dL 13.5-18.0 L AC TC02 (test code = 6578108184) 24 mmol/L See_Comment [Automated messa ge] The system which generated this result transmitted reference range: 23-27 mmol/L. The reference range was not used to interpret this result as normal/abnormal. Lab Interpretation (test code = 30199-6) [facility] Test Item Value Reference Range Interpretation Comme nts MAGNESIUM (test code = 4589936037) 1.6 mg/dL 1.7-2.4 L Lab Interpretation (test cod e = 11543-9) [facility] 23:38:[facility]* Test Item Value Reference Range Interpretation Comme nts MAGNESIUM (test code = 9678208014) 1.6 mg/dL 1.7-2.4 L Lab Interpretation (test cod e = 68133-2) [facility] 23:38:[facility]* Test Item Value Reference Range Interpretation Comme nts MAGNESIUM (test code = 6241690526) 1.6 mg/dL 1.7-2.4 L Lab Interpretation (test cod e = 27844-8) [facility] Bio8522-83-54 23:25:22* Test Item Value Reference Range Interpretation Comme nts APTT Patient (test code = 3173-2) 86 26-36 H Lab Interpretation (test cod e = 74155-7) [facility]normal [facility] Jrv3472-51-55 23:25:22* Test Item Value Reference Range Interpretation Comme nts APTT Patient (test code = 3173-2) 86 26-36 H Lab Interpretation (test cod e = 18888-0) [facility]normal [facility] Hiw0912-57-91 23:25:22* Test Item Value Reference Range Interpretation Comme nts APTT Patient (test code = 3173-2) 86 26-36 H Lab Interpretation (test cod e = 47308-6) [facility] - Type and Screen expires [...] POSITIVE IAT (test code = 1185) Negative [facility] - Type and Screen expires [...] POSITIVE IAT (test code = 1185) Negative [facility] - Type and Screen expires [...] POSITIVE IAT (test code = 1185) Negative [facility] 2 Afli8475-27-03 15:44:47ORDERING PHYSICIAN: JT ALEJANDRO. HISTORY: pre op exam TECHNIQUE: 2 views COMPARISON: 08/13/2019 FINDINGS: Lungs: ?Lungs are clear and hyperinflated. Pleura: ?No effusion or pleural disease is seen. ?Nopneumothorax. Mediastinum/Ellen: ?No masses or adenopathy. Heart: ?Cardiac shadow is prominent Other: ?No acute osseous abnormality is seen.[facility] 2 View 2023-07-07 15:44:47ORDERING PHYSICIAN: JT ALEJANDRO. HISTORY: pre op exam TECHNIQUE: 2 views COMPARISON: 08/13/2019 FINDINGS: Lungs: ?Lungs are clear and hyperinflated. Pleura: ?No effusion or pleural disease is seen. ?Nopneumothorax. Mediastinum/Ellen: ?No masses or adenopathy. Heart: ?Cardiac shadow is prominent Other: ?No acute osseous abnormality is seen.[facility] Chest 2 [id number] 15:44:47ORDERING PHYSICIAN: JT ALEJANDRO. HISTORY: pre op exam TECHNIQUE: 2 views COMPARISON: 08/13/2019 FINDINGS: Lungs: ?Lungs are clear and hyperinflated. Pleura: ?No effusion or pleural disease is seen. ?No pneumothorax. Mediastinum/Ellen: ?No masses or adenopathy. Heart: ?Cardiac shadow is prominent Other: ?No acute osseous abnormality is seen.[facility] 2 [id number] 15:44:47ORDERING PHYSICIAN: JT ALEJANDRO. HISTORY: pre op exam TECHNIQUE: 2 views COMPARISON: 08/13/2019 FINDINGS: Lungs: ?Lungs are clear and hyperinflated. Pleura: ?No effusion or pleural disease is seen. ?Nopneumothorax. Mediastinum/Ellen: ?No masses or adenopathy. Heart: ?Cardiac shadow is prominent Other: ?No acute osseous abnormality is seen. [facility] with [id number] 07:09:12* Test Item Value Reference Range Interpretation [...] 33.9 g/dL 31.2-35.0 RDW-SD (test code = 24008-5) 49.1 fL 38.5-51.6 RDW-CV (test code = 788-0) 14.5 % 12.1-15.4 PLT (test code = 777-3) 132 150-328 L MPV (test code = 71907-9) 12.0 fL 9.8-13.0 IPF % (test code = 8077968444) 5.4 % 1.2-10.7 Platelet count measured by fluorescence method. NRBC/100 WBC (test code = 3517707172) 0.0 0.0-10.0 NRBC x10^3 (test code = 0300160927) See_Comment [Automated messa ge] The system which generated this result transmitted reference range: 10*3/?L. The reference range was not used to interpret this result as normal/abnormal. GRAN MAT (NEUT) % (test code = 770-8) 66.3 % IMM GRAN % (test code = 8736150580) 0.40 % LYMPH % (test code = 736-9) 19.0 % MONO % (test code = 5905-5) 9.7 % EOS % (test code = 713-8) 3.5 % BASO % (test code = 706-2) 1.1 % GRAN MAT x10^3(ANC) (test code = 0047336599) 3.06 10*3/uL 1.99-6.95 IMM GRAN x10^3 (test code = 4143790213) 0.00-0.06 LYMPH x10^3 (test code = 731-0) 0.88 10*3/uL 1.09-3.23 L MONO x10^3 (test code = 742-7) 0.45 10*3/uL 0.36-1.02 EOS x10^3 (test code = 711-2) 0.16 10*3/uL 0.06-0.53 BASO x10^3 (test code = 704-7) 0.05 10*3/uL 0.01-0.09 Lab Interpretation (test code = 42075-8) Abnormal [facility] Metabolic Panel (NA, K, CL, CO2, GLUCOSE, BUN, CREATININE, CA)2023-07-06 07:09:12* Test Item Value Reference Range Interpretation Comme nts NA (test code = 3999591372) 138 mmol/L 135-145 K (test code = 9264664026) 3.8 mmol/L 3.5-5.0 CL (test code = 6715478848) 113 mmol/L 98-108 H CO2 TOTAL (test code = 7623868577) 22 mmol/L 23-31 L AGAP (test code = 5463940219) 3 2-16 BUN (test code = 1930214748) 20 mg/dL 7-23 GLUCOSE (test code = 6115779492) 101 mg/dL 70-110 CREATININE (test code = 2160-0) 1.63 mg/dL 0.60-1.25 H CALCIUM (test code = 4751528148) 9.7 mg/dL 8.6-10.6 eGFR (test code = 34959-9) 45.9 mL/min/1.73m2 CKD-EPI eGFR (2020). Assuming creatinine has been stable day-to-day for at least three months, the eGFR indicates Category G3a (45 - 59 mL/min/1.73 m2) Lab Interpretation (test code = 11547-0) [facility]* Test Item Value Reference Range Interpretation Comme nts MAGNESIUM (test code = 0072922522) 1.8 mg/dL 1.7-2.4 Lab Interpretation (test cod e = 61849-0) Normal [facility] [id number] 07:09:12* Test Item Value Reference Range Interpretation [...] 33.9 g/dL 31.2-35.0 RDW-SD (test code = 03255-0) 49.1 fL 38.5-51.6 RDW-CV (test code = 788-0) 14.5 % 12.1-15.4 PLT (test code = 777-3) 132 150-328 L MPV (test code = 61306-8) 12.0 fL 9.8-13.0 IPF % (test code = 3853236168) 5.4 % 1.2-10.7 Platelet count measured by fluorescence method. NRBC/100 WBC (test code = 1354654926) 0.0 0.0-10.0 NRBC x10^3 (test code = 9647958930) See_Comment [Automated messa ge] The system which generated this result transmitted reference range: 10*3/?L. The reference range was not used to interpret this result as normal/abnormal. GRAN MAT (NEUT) % (test code = 770-8) 66.3 % IMM GRAN % (test code = 9093750731) 0.40 % LYMPH % (test code = 736-9) 19.0 % MONO % (test code = 5905-5) 9.7 % EOS % (test code = 713-8) 3.5 % BASO % (test code = 706-2) 1.1 % GRAN MAT x10^3(ANC) (test code = 3417945424) 3.06 10*3/uL 1.99-6.95 IMM GRAN x10^3 (test code = 9122368077) 0.00-0.06 LYMPH x10^3 (test code = 731-0) 0.88 10*3/uL 1.09-3.23 L MONO x10^3 (test code = 742-7) 0.45 10*3/uL 0.36-1.02 EOS x10^3 (test code = 711-2) 0.16 10*3/uL 0.06-0.53 BASO x10^3 (test code = 704-7) 0.05 10*3/uL 0.01-0.09 Lab Interpretation (test code = 52498-4) Abnormal [facility] Metabolic Panel (NA, K, CL, CO2, GLUCOSE, BUN, CREATININE, CA)2023-07-06 07:09:12* Test Item Value Reference Range Interpretation Comme nts NA (test code = 2726572110) 138 mmol/L 135-145 K (test code = 9328484917) 3.8 mmol/L 3.5-5.0 CL (test code = 8889911691) 113 mmol/L 98-108 H CO2 TOTAL (test code = 1519299637) 22 mmol/L 23-31 L AGAP (test code = 9044416514) 3 2-16 BUN (test code = 2290717555) 20 mg/dL 7-23 GLUCOSE (test code = 7660386515) 101 mg/dL 70-110 CREATININE (test code = 2160-0) 1.63 mg/dL 0.60-1.25 H CALCIUM (test code = 5902925809) 9.7 mg/dL 8.6-10.6 eGFR (test code = 08696-6) 45.9 mL/min/1.73m2 CKD-EPI eGFR (2020). Assuming creatinine has been stable day-to-day for at least three months, the eGFR indicates Category G3a (45 - 59 mL/min/1.73 m2) Lab Interpretation (test code = 37130-3) [facility]normal [facility] 07:09:12* Test Item Value Reference Range Interpretation Comme nts MAGNESIUM (test code = 1905707439) 1.8 mg/dL 1.7-2.4 Lab Interpretation (test cod e = 42046-4) Normal [facility] with [id number] 07:09:12* Test Item Value Reference Range Interpretation [...] 33.9 g/dL 31.2-35.0 RDW-SD (test code = 67715-5) 49.1 fL 38.5-51.6 RDW-CV (test code = 788-0) 14.5 % 12.1-15.4 PLT (test code = 777-3) 132 150-328 L MPV (test code = 84084-2) 12.0 fL 9.8-13.0 IPF % (test code = 6807763682) 5.4 % 1.2-10.7 Platelet count measured by fluorescence method. NRBC/100 WBC (test code = 8799019877) 0.0 0.0-10.0 NRBC x10^3 (test code = 2693629140) See_Comment [Automated Abcama ge] The system which generated this result transmitted reference range: 10*3/?L. The reference range was not used to interpret this result as normal/abnormal. GRAN MAT (NEUT) % (test code = 770-8) 66.3 % IMM GRAN % (test code = 5710211263) 0.40 % LYMPH % (test code = 736-9) 19.0 % MONO % (test code = 5905-5) 9.7 % EOS % (test code = 713-8) 3.5 % BASO % (test code = 706-2) 1.1 % GRAN MAT x10^3(ANC) (test code = 4613116798) 3.06 10*3/uL 1.99-6.95 IMM GRAN x10^3 (test code = 2536855557) 0.00-0.06 LYMPH x10^3 (test code = 731-0) 0.88 10*3/uL 1.09-3.23 L MONO x10^3 (test code = 742-7) 0.45 10*3/uL 0.36-1.02 EOS x10^3 (test code = 711-2) 0.16 10*3/uL 0.06-0.53 BASO x10^3 (test code = 704-7) 0.05 10*3/uL 0.01-0.09 Lab Interpretation (test code = 48698-2) Abnormal [facility] Metabolic Panel (NA, K, CL, CO2, GLUCOSE, BUN, CREATININE, CA)2023-07-06 07:09:12* Test Item Value Reference Range Interpretation Comme nts NA (test code = 5298550958) 138 mmol/L 135-145 K (test code = 3043832282) 3.8 mmol/L 3.5-5.0 CL (test code = 5058586583) 113 mmol/L 98-108 H CO2 TOTAL (test code = 0792441944) 22 mmol/L 23-31 L AGAP (test code = 9507169175) 3 2-16 BUN (test code = 5318065285) 20 mg/dL 7-23 GLUCOSE (test code = 9003576192) 101 mg/dL 70-110 CREATININE (test code = 2160-0) 1.63 mg/dL 0.60-1.25 H CALCIUM (test code = 4648681971) 9.7 mg/dL 8.6-10.6 eGFR (test code = 39339-8) 45.9 mL/min/1.73m2 CKD-EPI eGFR (2020). Assuming creatinine has been stable day-to-day for at least three months, the eGFR indicates Category G3a (45 - 59 mL/min/1.73 m2) Lab Interpretation (test code = 24450-5) [facility]normal [facility] 07:09:12* Test Item Value Reference Range Interpretation Comme nts MAGNESIUM (test code = 2223060869) 1.8 mg/dL 1.7-2.4 Lab Interpretation (test cod e = 66567-4) Normal [facility] [id number] 07:09:12* Test Item Value Reference Range Interpretation [...] 33.9 g/dL 31.2-35.0 RDW-SD (test code = 49612-6) 49.1 fL 38.5-51.6 RDW-CV (test code = 788-0) 14.5 % 12.1-15.4 PLT (test code = 777-3) 132 150-328 L MPV (test code = 60504-1) 12.0 fL 9.8-13.0 IPF % (test code = 6700249113) 5.4 % 1.2-10.7 Platelet count measured by fluorescence method. NRBC/100 WBC (test code = 4142164547) 0.0 0.0-10.0 NRBC x10^3 (test code = 3750912556) See_Comment [Automated Abcama ge] The system which generated this result transmitted reference range: 10*3/?L. The reference range was not used to interpret this result as normal/abnormal. GRAN MAT (NEUT) % (test code = 770-8) 66.3 % IMM GRAN % (test code = 8692006486) 0.40 % LYMPH % (test code = 736-9) 19.0 % MONO % (test code = 5905-5) 9.7 % EOS % (test code = 713-8) 3.5 % BASO % (test code = 706-2) 1.1 % GRAN MAT x10^3(ANC) (test code = 7375556041) 3.06 10*3/uL 1.99-6.95 IMM GRAN x10^3 (test code = 3099395575) 0.00-0.06 LYMPH x10^3 (test code = 731-0) 0.88 10*3/uL 1.09-3.23 L MONO x10^3 (test code = 742-7) 0.45 10*3/uL 0.36-1.02 EOS x10^3 (test code = 711-2) 0.16 10*3/uL 0.06-0.53 BASO x10^3 (test code = 704-7) 0.05 10*3/uL 0.01-0.09 Lab Interpretation (test code = 92377-6) Abnormal [facility] Metabolic Panel (NA, K, CL, CO2, GLUCOSE, BUN, CREATININE, CA)2023-07-06 07:09:12* Test Item Value Reference Range Interpretation Comme nts NA (test code = 7651803895) 138 mmol/L 135-145 K (test code = 7957017791) 3.8 mmol/L 3.5-5.0 CL (test code = 8447807090) 113 mmol/L 98-108 H CO2 TOTAL (test code = 2259675344) 22 mmol/L 23-31 L AGAP (test code = 1731583147) 3 2-16 BUN (test code = 6147820188) 20 mg/dL 7-23 GLUCOSE (test code = 5705801364) 101 mg/dL 70-110 CREATININE (test code = 2160-0) 1.63 mg/dL 0.60-1.25 H CALCIUM (test code = 5913980975) 9.7 mg/dL 8.6-10.6 eGFR (test code = 88236-9) 45.9 mL/min/1.73m2 CKD-EPI eGFR (2020). Assuming creatinine has been stable day-to-day for at least three months, the eGFR indicates Category G3a (45 - 59 mL/min/1.73 m2) Lab Interpretation (test code = 15070-9) [facility] Test Item Value Reference Range Interpretation Comme nts MAGNESIUM (test code = 1817469356) 1.8 mg/dL 1.7-2.4 Lab Interpretation (test cod e = 76901-0) Normal [facility] (for use with Heparin Infusion)2023-07-06 06:45:27* Test Item Value Reference Range Interpretation Comme nts APTT Patient (test code = 3173-2) 77 26-36 H Lab Interpretation (test cod e = 95051-0) Abnormal [facility] (for use with Heparin Infusion)2023-07-06 06:45:27* Test Item Value Reference Range Interpretation Comme nts APTT Patient (test code = 3173-2) 77 26-36 H Lab Interpretation (test cod e = 16931-9) Abnormal [facility] (for use with Heparin Infusion)2023-07-06 06:45:27* Test Item Value Reference Range Interpretation Comme [facility] APTT Patient (test code = 3173-2) 77 26-36 H Lab Interpretation (test cod e = 03129-4) [facility]2023-07-06 06:45:27* Test Item Value Reference Range Interpretation Comme [facility] APTT Patient (test code = 3173-2) 77 26-36 H Lab Interpretation (test cod e = 86643-1) [facility]normal [facility]2023-07-03 20:53:53* Test Item Value Reference Range Interpretation Comme [facility] Height (test code = 8676239392) 69 in Weight (test code = 2051126468) 200 lbs Systolic BP (test code = 7570796078) 170 mmHg Diastolic BP (test code = 0635734538) 89 mmHg Heart Rate (test code = 2530489138) 90 bpm LV GLS Endo Peak A2C () (test code = 4946200610) -17.10 % LV GLS Endo Peak A3C () (test code = 0917784745) -17.30 % LV GLS Endo Peak A4C () (test code = 5042869915) -9.20 % LV GLS Endo Peak Avg () (test code = 5385083571) -14.50 % BSA (test code = 2641794500) 2.07 m2 Ao root diam (test code = 3458638813) 3.00 cm Aortic root (test code = 0328022200) 3.0 cm Ao root annulus (test code = 0520147779) 3.0 cm LA size (test code = 1755239093) 4.4 cm LAV(MOD-sp4) (test code = 4689885984) 100.10 mL E wave decelartion time (test code = 9702647525) 0.28 s MV Peak E Zain (test code = 4000015930) 116.5 cm/s MV Peak A Azin (test code = 5742812899) 101.2 cm/s E/A ratio (test code = 7352544605) 1.15 ratio MV Prop V (test code = 5815854873) 128.00 cm/s LVOT peak zain (test code = 3521102159) 94.6 cm/s AV LVOT peak gradient (test code = 7787334883) 3.6 mmHg LVOT mn grad (test code = 4870951755) 1.8 mmHg LVOT peak VTI (test code = 8054899129) 18.1 cm LV V1 mean (test code = 4517912283) 63.40 cm/s Tapse (test code = 5290783925) 2.22 cm LA Volume Index (BP) (test code = 1202987552) 53.0 mL/m2 LA volume (BP) (test code = 7757033809) 109.5 mL LAV(MOD-sp2) (test code = 2909953484) 116.90 mL LVIDD (test code = 7003037181) 5.00 cm Left Ventricular End Diastolic Volume by Teichholz Method (test code = 4529684) 116.3 mL IVS (test code = 8157357492) 1.36 cm Interventricular Septum Diastolic Thickness by 2D (test code = 2756252) 1.36 cm LVPWD (test code = 5762533097) 1.29 cm PW (test code = 8124092157) 1.29 cm 0.6-1.1 EF(Teich) (test code = 5512099306) 44.20 % LVIDS (test code = 4033076821) 3.90 cm Left Ventricular End Systolic Volume by Teichholz Method (test code = 5680655) 64.8 mL FS (test code = 8832794398) 22 % EF - 2D (test code = 75279636) 44.20 % GLS (test code = 5154691666) -15 % A4C EF (test code = 5513345895) 47.20 % EF(sp4-el) (test code = 2758183867) 46.80 % SV(MOD-sp4) (test code = 6854256371) 78.80 mL SV(sp4-el) (test code = 1998777866) 79.90 mL LV Diastolic Volume (BP) (test code = 3024940421) 194.8 mL A2C EF (test code = 2313732883) 56.10 % EF(MOD-bp) (test code = 5091662813) 54.90 % EF(sp2-el) (test code = 4427278853) 57.10 % LV Systolic Volume (BP) (test code = 2458428694) 87.9 mL SV(MOD-bp) (test code = 9881442631) 106.90 mL SV(MOD-sp2) (test code = 5425298965) 113.20 mL EF (test code = 3630246720) 55 Left Ventricular Stroke Volume by 2-D Biplane-MOD (test code = 3414346) 106.9 mL Radiology Study observation (narrative) (test code = 61077-4) MARLENE (test code = MARLENE) ?Left?Ventricle: Left [...] mL of Lumason ultrasound enhancing agent used. [facility] 20:53:53* Test Item Value Reference Range Interpretation Comme nts Height (test code = 9514938328) 69 in Weight (test code = 6418997101) 200 lbs Systolic BP (test code = 0410959807) 170 mmHg Diastolic BP (test code = 8472298851) 89 mmHg Heart Rate (test code = 0986058414) 90 bpm LV GLS Endo Peak A2C () (test code = 0224471339) -17.10 % LV GLS Endo Peak A3C () (test code = 4367610231) -17.30 % LV GLS Endo Peak A4C () (test code = 9414517220) -9.20 % LV GLS Endo Peak Avg () (test code = 5752336569) -14.50 % BSA (test code = 9277572108) 2.07 m2 Ao root diam (test code = 7390710277) 3.00 cm Aortic root (test code = 7519358829) 3.0 cm Ao root annulus (test code = 0664687860) 3.0 cm LA size (test code = 0565978535) 4.4 cm LAV(MOD-sp4) (test code = 7810392901) 100.10 mL E wave decelartion time (test code = 8951247831) 0.28 s MV Peak E Zain (test code = 9552884252) 116.5 cm/s MV Peak A Zain (test code = 6595423354) 101.2 cm/s E/A ratio (test code = 9120436206) 1.15 ratio MV Prop V (test code = 7592222602) 128.00 cm/s LVOT peak zain (test code = 2411658272) 94.6 cm/s AV LVOT peak gradient (test code = 5199305122) 3.6 mmHg LVOT mn grad (test code = 8151135175) 1.8 mmHg LVOT peak VTI (test code = 0973140920) 18.1 cm LV V1 mean (test code = 4905827060) 63.40 cm/s Tapse (test code = 6143587142) 2.22 cm LA Volume Index (BP) (test code = 8716815624) 53.0 mL/m2 LA volume (BP) (test code = 1301202647) 109.5 mL LAV(MOD-sp2) (test code = 2874572354) 116.90 mL LVIDD (test code = 2210934117) 5.00 cm Left Ventricular End Diastolic Volume by Teichholz Method (test code = 8319990) 116.3 mL IVS (test code = 6070739392) 1.36 cm Interventricular Septum Diastolic Thickness by 2D (test code = 5616841) 1.36 cm LVPWD (test code = 9514500390) 1.29 cm PW (test code = 1707634614) 1.29 cm 0.6-1.1 EF(Teich) (test code = 0141368625) 44.20 % LVIDS (test code = 8117172092) 3.90 cm Left Ventricular End Systolic Volume by Teichholz Method (test code = 9292694) 64.8 mL FS (test code = 3920762094) 22 % EF - 2D (test code = 18521176) 44.20 % GLS (test code = 6185084901) -15 % A4C EF (test code = 2433255632) 47.20 % EF(sp4-el) (test code = 1270427743) 46.80 % SV(MOD-sp4) (test code = 8214910487) 78.80 mL SV(sp4-el) (test code = 2459573386) 79.90 mL LV Diastolic Volume (BP) (test code = 5171337180) 194.8 mL A2C EF (test code = 8034551845) 56.10 % EF(MOD-bp) (test code = 5785453018) 54.90 % EF(sp2-el) (test code = 7366393103) 57.10 % LV Systolic Volume (BP) (test code = 6424935574) 87.9 mL SV(MOD-bp) (test code = 0434635310) 106.90 mL SV(MOD-sp2) (test code = 7230024337) 113.20 mL EF (test code = 1374295001) 55 Left Ventricular Stroke Volume by 2-D Biplane-MOD (test code = 8682867) 106.9 mL Radiology Study observation (narrative) (test code = 35697-9) MARLENE (test code = MARLENE) ?Left?Ventricle: Left [...] mL of Lumason ultrasound enhancing agent used. [facility] 20:53:53* Test Item Value Reference Range Interpretation Comme nts Height (test code = 4640900804) 69 in Weight (test code = 1712080507) 200 lbs Systolic BP (test code = 1118936870) 170 mmHg Diastolic BP (test code = 7315691206) 89 mmHg Heart Rate (test code = 7033445298) 90 bpm LV GLS Endo Peak A2C () (test code = 6711233208) -17.10 % LV GLS Endo Peak A3C () (test code = 2231502346) -17.30 % LV GLS Endo Peak A4C () (test code = 8238951425) -9.20 % LV GLS Endo Peak Avg () (test code = 5762419750) -14.50 % BSA (test code = 5839775756) 2.07 m2 Ao root diam (test code = 7261001145) 3.00 cm Aortic root (test code = 7918823430) 3.0 cm Ao root annulus (test code = 5155938076) 3.0 cm LA size (test code = 8857130869) 4.4 cm LAV(MOD-sp4) (test code = 9051975318) 100.10 mL E wave decelartion time (test code = 8775060888) 0.28 s MV Peak E Zain (test code = 3125795648) 116.5 cm/s MV Peak A Zain (test code = 3593000044) 101.2 cm/s E/A ratio (test code = 6285365154) 1.15 ratio MV Prop V (test code = 0286696200) 128.00 cm/s LVOT peak zain (test code = 9669147029) 94.6 cm/s AV LVOT peak gradient (test code = 2403593338) 3.6 mmHg LVOT mn grad (test code = 2646238178) 1.8 mmHg LVOT peak VTI (test code = 0289842909) 18.1 cm LV V1 mean (test code = 2569675429) 63.40 cm/s Tapse (test code = 0330356792) 2.22 cm LA Volume Index (BP) (test code = 4203913473) 53.0 mL/m2 LA volume (BP) (test code = 0159026131) 109.5 mL LAV(MOD-sp2) (test code = 2480853188) 116.90 mL LVIDD (test code = 2806190278) 5.00 cm Left Ventricular End Diastolic Volume by Teichholz Method (test code = 5711704) 116.3 mL IVS (test code = 0741679096) 1.36 cm Interventricular Septum Diastolic Thickness by 2D (test code = 6924555) 1.36 cm LVPWD (test code = 2658145493) 1.29 cm PW (test code = 5252834916) 1.29 cm 0.6-1.1 EF(Teich) (test code = 1567976042) 44.20 % LVIDS (test code = 3045274863) 3.90 cm Left Ventricular End Systolic Volume by Teichholz Method (test code = 0922375) 64.8 mL FS (test code = 4050390225) 22 % EF - 2D (test code = 15925373) 44.20 % GLS (test code = 9654814263) -15 % A4C EF (test code = 1496294322) 47.20 % EF(sp4-el) (test code = 5840174111) 46.80 % SV(MOD-sp4) (test code = 0760011618) 78.80 mL SV(sp4-el) (test code = 4499534021) 79.90 mL LV Diastolic Volume (BP) (test code = 9462266380) 194.8 mL A2C EF (test code = 9581192714) 56.10 % EF(MOD-bp) (test code = 8101773660) 54.90 % EF(sp2-el) (test code = 0699049945) 57.10 % LV Systolic Volume (BP) (test code = 6271100245) 87.9 mL SV(MOD-bp) (test code = 6588365532) 106.90 mL SV(MOD-sp2) (test code = 5282911713) 113.20 mL EF (test code = 5810026150) 55 Left Ventricular Stroke Volume by 2-D Biplane-MOD (test code = 3682965) 106.9 mL Radiology Study observation (narrative) (test code = 75665-5) MARLENE (test code = MARLENE) ?Left?Ventricle: Left [...] mL of Lumason ultrasound enhancing agent used. [facility] 20:53:53* Test Item Value Reference Range Interpretation Comme nts Height (test code = 3181083030) 69 in Weight (test code = 3843800411) 200 lbs Systolic BP (test code = 7253530787) 170 mmHg Diastolic BP (test code = 6052573051) 89 mmHg Heart Rate (test code = 6018203815) 90 bpm LV GLS Endo Peak A2C () (test code = 8809797931) -17.10 % LV GLS Endo Peak A3C () (test code = 9366499258) -17.30 % LV GLS Endo Peak A4C () (test code = 8939421687) -9.20 % LV GLS Endo Peak Avg () (test code = 3791328264) -14.50 % BSA (test code = 8217204777) 2.07 m2 Ao root diam (test code = 7208542922) 3.00 cm Aortic root (test code = 8029800542) 3.0 cm Ao root annulus (test code = 8959902084) 3.0 cm LA size (test code = 0509409390) 4.4 cm LAV(MOD-sp4) (test code = 3436466692) 100.10 mL E wave decelartion time (test code = 1658701171) 0.28 s MV Peak E Zain (test code = 8951543533) 116.5 cm/s MV Peak A Zain (test code = 0981016370) 101.2 cm/s E/A ratio (test code = 7814045037) 1.15 ratio MV Prop V (test code = 1763702273) 128.00 cm/s LVOT peak zain (test code = 3715505228) 94.6 cm/s AV LVOT peak gradient (test code = 0732354617) 3.6 mmHg LVOT mn grad (test code = 5988367384) 1.8 mmHg LVOT peak VTI (test code = 0575813227) 18.1 cm LV V1 mean (test code = 4815659862) 63.40 cm/s Tapse (test code = 7068220890) 2.22 cm LA Volume Index (BP) (test code = 9910435597) 53.0 mL/m2 LA volume (BP) (test code = 3110124213) 109.5 mL LAV(MOD-sp2) (test code = 6852743862) 116.90 mL LVIDD (test code = 5235688647) 5.00 cm Left Ventricular End Diastolic Volume by Teichholz Method (test code = 1220964) 116.3 mL IVS (test code = 5508815861) 1.36 cm Interventricular Septum Diastolic Thickness by 2D (test code = 2196809) 1.36 cm LVPWD (test code = 4688109881) 1.29 cm PW (test code = 6627926387) 1.29 cm 0.6-1.1 EF(Teich) (test code = 1921490673) 44.20 % LVIDS (test code = 5792754601) 3.90 cm Left Ventricular End Systolic Volume by Teichholz Method (test code = 8731931) 64.8 mL FS (test code = 3426863038) 22 % EF - 2D (test code = 62002255) 44.20 % GLS (test code = 2174533498) -15 % A4C EF (test code = 6391707245) 47.20 % EF(sp4-el) (test code = 9329701383) 46.80 % SV(MOD-sp4) (test code = 3099933242) 78.80 mL SV(sp4-el) (test code = 2258117597) 79.90 mL LV Diastolic Volume (BP) (test code = 0195813414) 194.8 mL A2C EF (test code = 1777442808) 56.10 % EF(MOD-bp) (test code = 6107970216) 54.90 % EF(sp2-el) (test code = 3846973176) 57.10 % LV Systolic Volume (BP) (test code = 0212181676) 87.9 mL SV(MOD-bp) (test code = 7923775459) 106.90 mL SV(MOD-sp2) (test code = 8446826100) 113.20 mL EF (test code = 9962702043) 55 Left Ventricular Stroke Volume by 2-D Biplane-MOD (test code = 6382473) 106.9 mL Radiology Study observation (narrative) (test code = 45820-7) MARLENE (test code = MARLENE) ?Left?Ventricle: Left [...] mL of Lumason ultrasound enhancing agent used. [facility] CHEST 1 [id number] 16:22:16PROCEDURE: XR CHEST 1 VW CLINICAL INDICATION: chest pain COMPARISON: Chest radiograph dated 04/13/2020 FINDINGS: No focal consolidation is identified. Hilar vascular congestion noted. Nopleural effusion or pneumothorax is seen. The cardiomediastinal silhouetteis enlarged.No acute bony abnormality[facility] [id number] 16:22:16PROCEDURE: XR CHEST 1 VW CLINICAL INDICATION: chest pain COMPARISON: Chest radiograph dated 04/13/2020 FINDINGS: No focal consolidation is identified. Hilar vascular congestion noted. Nopleural effusion or pneumothorax is seen. The cardiomediastinal silhouetteis enlarged.No acute bony abnormality[facility] [id number] 16:22:16PROCEDURE: XR CHEST 1 CLINICAL INDICATION: chest pain COMPARISON: Chest radiograph dated 04/13/2020 FINDINGS: No focal consolidation is identified. Hilar vascular congestion noted. Nopleural effusion or pneumothorax is seen. The cardiomediastinal silhouetteis enlarged.No acute bony abnormality.[facility] [id number] 16:22:16 PROCEDURE: XR CHEST 1 CLINICAL INDICATION: chest pain COMPARISON: Chest radiograph dated 04/13/2020 FINDINGS: No focal consolidation is identified. Hilar vascular congestion noted. Nopleural effusion or pneumothorax is seen. The cardiomediastinal silhouetteis enlarged.No acute bony abnormality.[facility] Acid Whole [id number] 10:00:43* Test Item Value Reference Range Interpretation Comme nts LACTIC ACID (test code = 6641028934) 0.95 mmol/L 0.50-2.20 Lab Interpretation (test cod e = 39919-4) [facility] [id number] 10:00:43* Test Item Value Reference Range Interpretation Comme nts LACTIC ACID (test code = 0446260517) 0.95 mmol/L 0.50-2.20 Lab Interpretation (test cod e = 20082-3) [facility] [id number] 10:00:43* Test Item Value Reference Range Interpretation Comme nts LACTIC ACID (test code = 0307689645) 0.95 mmol/L 0.50-2.20 Lab Interpretation (test cod e = 07939-5) [facility] Knqgf0416-63-94 10:00:43* Test Item Value Reference Range Interpretation Comme nts LACTIC ACID (test code = 1369787664) 0.95 mmol/L 0.50-2.20 Lab Interpretation (test cod e = 65916-1) [facility] Rzdntdt2597-26-11 07:20:51 * Test Item Value Reference Range Interpretation Comme nts TSH (test code = 4934054978) 2.45 0.45-4.70 Biotin has been reported to cause a negative bias, interpret results relative to patient's use of biotin. Lab Interpretation (test code = 80199-0) Normal [facility] Egqsyrp7795-55-63 07:20:51 * Test Item Value Reference Range Interpretation Comme nts TSH (test code = 9056956025) 2.45 0.45-4.70 Biotin has been reported to cause a negative bias, interpret results relative to patient's use of biotin. Lab Interpretation (test code = 31926-3) Normal [facility] HospitalTh[facility] Eviampn4413-29-71 07:20:51 * Test Item Value Reference Range Interpretation Comme nts TSH (test code = 1181145546) 2.45 0.45-4.70 Biotin has been reported to cause a negative bias, interpret results relative to patient's use of biotin. Lab Interpretation (test code = 30895-6) Normal [facility]Th[facility] Fndsflu3098-32-75 07:20:51 * Test Item Value Reference Range Interpretation Comme nts TSH (test code = 0732762656) 2.45 0.45-4.70 Biotin has been reported to cause a negative bias, interpret results relative to patient's use of biotin. Lab Interpretation (test code = 70961-9) Normal [facility] HospitalGlycosylated Hemoglobin (A1C)2023-07-03 06:51:13* Test Item Value Reference Range Interpretation Comme nts HGB A1C (test code = 4548-4) 5.6 % 4.0-5.7 MARLENE (test code = MARLENE) Reference RangesNormal: <5.7%Prediabetes: 5.7 - 6.4%Diabetes: > 6.5% Lab Interpretation (test code = 05223-9) Normal [facility] HospitalGlycosylated Hemoglobin (A1C)2023-07-03 06:51:13* Test Item Value Reference Range Interpretation Comme nts HGB A1C (test code = 4548-4) 5.6 % 4.0-5.7 MARLENE (test code = MARLENE) Reference RangesNormal: <5.7%Prediabetes: 5.7 - 6.4%Diabetes: > 6.5% Lab Interpretation (test code = 13988-5) Normal [facility] HospitalGlycosylated Hemoglobin (A1C)2023-07-03 06:51:13* Test Item Value Reference Range Interpretation Comme [facility] HGB A1C (test code = 4548-4) 5.6 % 4.0-5.7 MARLENE (test code = MARLENE) Reference RangesNormal: <5.7%Prediabetes: 5.7 - 6.4%Diabetes: > 6.5% Lab Interpretation (test code = 82412-7) Normal [facility] HospitalGlycosylated Hemoglobin (A1C)2023-07-03 06:51:13* Test Item Value Reference Range Interpretation Comme [facility] HGB A1C (test code = 4548-4) 5.6 % 4.0-5.7 MARLENE (test code = MARLENE) Reference RangesNormal: <5.7%Prediabetes: 5.7 - 6.4%Diabetes: > 6.5% Lab Interpretation (test code = 58659-3) Normal [facility] HospitalProthrombin Time / [id number] 03:23:45* Test Item Value Reference Range Interpretation Comme [facility] PROTIME PATIENT (test code = 5964-2) 11.6 10.1-12.6 INR (test code = 6301-6) 1.0 Normal INR <1.1; Warfarin Therapeutic range 2.0 to 3.0 or 2.5 to 3.5, depending upon the indications. Lab Interpretation (test code = 22485-1) Normal [facility] HospitalaPTT2024-03-07 03:23:45* Test Item Value Reference Range Interpretation Comme [facility] APTT Patient (test code = 3173-2) 33 26-36 MARLENE (test code = MARLENE) The [email or web address] patient population mean normal value for aPTT is 30 seconds. Lab Interpretation (test code = 51917-6) Normal [facility] HospitalProthrombin Time / [id number] 03:23:45* Test Item Value Reference Range Interpretation Comme [facility] PROTIME PATIENT (test code = 5964-2) 11.6 10.1-12.6 INR (test code = 6301-6) 1.0 Normal INR <1.1; Warfarin Therapeutic range 2.0 to 3.0 or 2.5 to 3.5, depending upon the indications. Lab Interpretation (test code = 79597-5) Normal [facility] HospitalaPTT2024-03-07 03:23:45* Test Item Value Reference Range Interpretation Comme nts APTT Patient (test code = 3173-2) 33 -36 MARLENE (test code = MARLENE) The [facility] [[email or web address] patient population mean normal value for aPTT is 30 seconds. Lab Interpretation (test code = 63083-6) Normal [facility] HospitalProthrombin Time / [id number] 03:23:45* Test Item Value Reference Range Interpretation Comme nts PROTIME PATIENT (test code = 5964-2) 11.6 10.1-12.6 INR (test code = 6301-6) 1.0 Normal INR <1.1; Warfarin Therapeutic range 2.0 to 3.0 or 2.5 to 3.5, depending upon the indications. Lab Interpretation (test code = 03167-3) Normal [facility] HospitalaPTT2024-03-07 03:23:45* Test Item Value Reference Range Interpretation Comme nts APTT Patient (test code = 3173-2) -36 MARLENE (test code = MARLENE) The [facility] [[email or web address] patient population mean normal value for aPTT is 30 seconds. Lab Interpretation (test code = 48558-9) Normal [facility] HospitalProthrombin Time / [id number] 03:23:45* Test Item Value Reference Range Interpretation Comme nts PROTIME PATIENT (test code = 5964-2) 11.6 10.1-12.6 INR (test code = 6301-6) 1.0 Normal INR <1.1; Warfarin Therapeutic range 2.0 to 3.0 or 2.5 to 3.5, depending upon the indications. Lab Interpretation (test code = 95822-6) Normal [facility] HospitalaPTT2024-03-07 03:23:45* Test Item Value Reference Range Interpretation Comme nts APTT Patient (test code = 3173-2) 33 -36 MARLENE (test code = MARLENE) The [facility] [[email or web address] patient population mean normal value for aPTT is 30 seconds. Lab Interpretation (test code = 22300-2) Normal [facility] HospitalTroponin [id number] 02:38:39* Test Item Value Reference Range Interpretation Comme nts TROPONIN I (test code = 4973516049) 0.077 ng/mL <=0.034 H MARLENE (test code [...] of biotin. Lab Interpretation (test code = 27241-9) Abnormal [facility] [id number] 02:38:39* Test Item Value Reference Range Interpretation Comme nts TROPONIN I (test code = 8957325415) 0.077 ng/mL <=0.034 H MARLENE (test code [...] of biotin. Lab Interpretation (test code = 10865-5) Abnormal [facility] [id number] 02:38:39* Test Item Value Reference Range Interpretation Comme nts TROPONIN I (test code = 1148724566) 0.077 ng/mL <=0.034 H MARLENE (test code [...] of biotin. Lab Interpretation (test code = 47170-8) [id number] 02:38:39* Test Item Value Reference Range Interpretation Comme nts TROPONIN I (test code = 3314666716) 0.077 ng/mL <=0.034 H MARLENE (test code [...] of biotin. Lab Interpretation (test code = 57941-5) Abnormal [facility] HospitalN-Terminal Hjo-Eji5799-61-07 02:36:17* Test Item Value Reference Range Interpretation Comme nts NT-proBNP (test code = 53452-2) 1580 pg/mL <=125 H MARLENE (test code = MARLENE) Positive: Heart Failure Likely Lab Interpretation (test code = 46494-9) Abnormal [facility] HospitalN-Terminal Hci-Sfv0113-61-07 02:36:17* Test Item Value Reference Range Interpretation Comme nts NT-proBNP (test code = 29401-7) 1580 pg/mL <=125 H MARLENE (test code = MARLENE) Positive: Heart Failure Likely Lab Interpretation (test code = 78940-7) Abnormal [facility]-Terminal Xjt-Yfu2881-19-07 02:36:17* Test Item Value Reference Range Interpretation Comme nts NT-proBNP (test code = 71769-9) 1580 pg/mL <=125 H MARLENE (test code = MARLENE) Positive: Heart Failure Likely Lab Interpretation (test code = 41651-6) Abnormal [facility]-Terminal Gev-Vmk7507-22-07 02:36:17* Test Item Value Reference Range Interpretation Comme nts NT-proBNP (test code = 74509-9) 1580 pg/mL <=125 H MARLENE (test code = MARLENE) Positive: Heart Failure Likely Lab Interpretation (test code = 25841-5) Abnormal [facility]. Metabolic Panel (26091)2023-07-03 02:27:40* Test Item Value Reference Range Interpretation Comme nts NA (test code = 0718259539) 141 mmol/L 135-145 K (test code = 4372599504) 3.6 mmol/L 3.5-5.0 CL (test code = 8171855038) 111 mmol/L 98-108 H CO2 TOTAL (test code = 1778024695) 26 mmol/L 23-31 AGAP (test code = 5985370850) 4 2-16 BUN (test code = 7315474641) 20 mg/dL 7-23 GLUCOSE (test code = 6722217688) 118 mg/dL 70-110 H CREATININE (test code = 2160-0) 1.55 mg/dL 0.60-1.25 H TOTAL BILI (test code = 2883174791) 0.6 mg/dL 0.1-1.1 CALCIUM (test code = 9407189821) 10.3 mg/dL 8.6-10.6 T PROTEIN (test code = 0862187910) 8.2 g/dL 6.3-8.2 ALBUMIN (test code = 6255245164) 4.0 g/dL 3.5-5.0 ALK PHOS (test code = 3770972382) 81 U/L 34-122 ALTv (test code = 1742-6) 22 U/L 5-50 AST(SGOT) (test code = 5785159236) 46 U/L 13-40 H eGFR (test code = 82181-1) 48.8 mL/min/1.73m2 CKD-EPI eGFR (2020). Assuming creatinine has been stable day-to-day for at least three months, the eGFR indicates Category G3a (45 - 59 mL/min/1.73 m2) Lab Interpretation (test code = 33569-7) Abnormal [facility] Metabolic Panel (36941)2023-07-03 02:27:40* Test Item Value Reference Range Interpretation Comme nts NA (test code = 7341436467) 141 mmol/L 135-145 K (test code = 8019359561) 3.6 mmol/L 3.5-5.0 CL (test code = 4540376830) 111 mmol/L 98-108 H CO2 TOTAL (test code = 5959917760) 26 mmol/L 23-31 AGAP (test code = 0957592146) 4 2-16 BUN (test code = 7785340393) 20 mg/dL 7-23 GLUCOSE (test code = 5166826152) 118 mg/dL 70-110 H CREATININE (test code = 2160-0) 1.55 mg/dL 0.60-1.25 H TOTAL BILI (test code = 0548658343) 0.6 mg/dL 0.1-1.1 CALCIUM (test code = 6289855964) 10.3 mg/dL 8.6-10.6 T PROTEIN (test code = 2166939185) 8.2 g/dL 6.3-8.2 ALBUMIN (test code = 0217452595) 4.0 g/dL 3.5-5.0 ALK PHOS (test code = 7952523441) 81 U/L 34-122 ALTv (test code = 1742-6) 22 U/L 5-50 AST(SGOT) (test code = 0908125198) 46 U/L 13-40 H eGFR (test code = 97626-1) 48.8 mL/min/1.73m2 CKD-EPI eGFR (2020). Assuming creatinine has been stable day-to-day for at least three months, the eGFR indicates Category G3a (45 - 59 mL/min/1.73 m2) Lab Interpretation (test code = 58010-7) Abnormal [facility] Metabolic Panel (35877)2023-07-03 02:27:40* Test Item Value Reference Range Interpretation Comme nts NA (test code = 2716309757) 141 mmol/L 135-145 K (test code = 9173325280) 3.6 mmol/L 3.5-5.0 CL (test code = 2044229772) 111 mmol/L 98-108 H CO2 TOTAL (test code = 9299593542) 26 mmol/L 23-31 AGAP (test code = 0620473676) 4 2-16 BUN (test code = 2562158996) 20 mg/dL 7-23 GLUCOSE (test code = 1985284207) 118 mg/dL 70-110 H CREATININE (test code = 2160-0) 1.55 mg/dL 0.60-1.25 H TOTAL BILI (test code = 1093061178) 0.6 mg/dL 0.1-1.1 CALCIUM (test code = 3157328334) 10.3 mg/dL 8.6-10.6 T PROTEIN (test code = 5104773596) 8.2 g/dL 6.3-8.2 ALBUMIN (test code = 1409020520) 4.0 g/dL 3.5-5.0 ALK PHOS (test code = 7665246406) 81 U/L 34-122 ALTv (test code = 1742-6) 22 U/L 5-50 AST(SGOT) (test code = 8709966434) 46 U/L 13-40 H eGFR (test code = 55902-2) 48.8 mL/min/1.73m2 CKD-EPI eGFR (2020). Assuming creatinine has been stable day-to-day for at least three months, the eGFR indicates Category G3a (45 - 59 mL/min/1.73 m2) Lab Interpretation (test code = 89957-5) Abnormal [facility]. Metabolic Panel (49292)2023-07-03 02:27:40* Test Item Value Reference Range Interpretation Comme nts NA (test code = 2483732317) 141 mmol/L 135-145 K (test code = 0409446967) 3.6 mmol/L 3.5-5.0 CL (test code = 6410567796) 111 mmol/L 98-108 H CO2 TOTAL (test code = 8270269097) 26 mmol/L 23-31 AGAP (test code = 5534275953) 4 2-16 BUN (test code = 4249739626) 20 mg/dL 7-23 GLUCOSE (test code = 5618557106) 118 mg/dL 70-110 H CREATININE (test code = 2160-0) 1.55 mg/dL 0.60-1.25 H TOTAL BILI (test code = 6149940709) 0.6 mg/dL 0.1-1.1 CALCIUM (test code = 1277104496) 10.3 mg/dL 8.6-10.6 T PROTEIN (test code = 4879714776) 8.2 g/dL 6.3-8.2 ALBUMIN (test code = 6963890580) 4.0 g/dL 3.5-5.0 ALK PHOS (test code = 4499746699) 81 U/L 34-122 ALTv (test code = 1742-6) 22 U/L 5-50 AST(SGOT) (test code = 2823979805) 46 U/L 13-40 H eGFR (test code = 48912-3) 48.8 mL/min/1.73m2 CKD-EPI eGFR (2020). Assuming creatinine has been stable day-to-day for at least three months, the eGFR indicates Category G3a (45 - 59 mL/min/1.73 m2) Lab Interpretation (test code = 87355-9) [facility]normal [facility] HospitalCb with Dizg5005-03-08 02:14:58* Test Item Value Reference Range Interpretation [...] 33.1 g/dL 31.2-35.0 RDW-SD (test code = 42255-0) 48.3 fL 38.5-51.6 RDW-CV (test code = 788-0) 14.2 % 12.1-15.4 PLT (test code = 777-3) 163 150-328 MPV (test code = 31969-3) 11.3 fL 9.8-13.0 NRBC/100 WBC (test code = 6601992197) 0.0 0.0-10.0 NRBC x10^3 (test code = 3393077428) See_Comment [Automated messa ge] The system which generated this result transmitted reference range: 10*3/?L. The reference range was not used to interpret this result as normal/abnormal. GRAN MAT (NEUT) % (test code = 770-8) 61.1 % IMM GRAN % (test code = 2791767450) 0.40 % LYMPH % (test code = 736-9) 21.8 % MONO % (test code = 5905-5) 11.0 % EOS % (test code = 713-8) 4.5 % BASO % (test code = 706-2) 1.2 % GRAN MAT x10^3(ANC) (test code = 6927907047) 2.99 10*3/uL 1.99-6.95 IMM GRAN x10^3 (test code = 6409579605) 0.00-0.06 LYMPH x10^3 (test code = 731-0) 1.07 10*3/uL 1.09-3.23 L MONO x10^3 (test code = 742-7) 0.54 10*3/uL 0.36-1.02 EOS x10^3 (test code = 711-2) 0.22 10*3/uL 0.06-0.53 BASO x10^3 (test code = 704-7) 0.06 10*3/uL 0.01-0.09 Lab Interpretation (test code = 22881-7) Abnormal [facility] with Gsdg2618-54-35 02:14:58* Test Item Value Reference Range Interpretation [...] 33.1 g/dL 31.2-35.0 RDW-SD (test code = 51911-1) 48.3 fL 38.5-51.6 RDW-CV (test code = 788-0) 14.2 % 12.1-15.4 PLT (test code = 777-3) 163 150-328 MPV (test code = 70231-0) 11.3 fL 9.8-13.0 NRBC/100 WBC (test code = 7110165957) 0.0 0.0-10.0 NRBC x10^3 (test code = 6224168170) See_Comment [Automated Abcama ge] The system which generated this result transmitted reference range: 10*3/?L. The reference range was not used to interpret this result as normal/abnormal. GRAN MAT (NEUT) % (test code = 770-8) 61.1 % IMM GRAN % (test code = 5681693382) 0.40 % LYMPH % (test code = 736-9) 21.8 % MONO % (test code = 5905-5) 11.0 % EOS % (test code = 713-8) 4.5 % BASO % (test code = 706-2) 1.2 % GRAN MAT x10^3(ANC) (test code = 3685686723) 2.99 10*3/uL 1.99-6.95 IMM GRAN x10^3 (test code = 4752591673) 0.00-0.06 LYMPH x10^3 (test code = 731-0) 1.07 10*3/uL 1.09-3.23 L MONO x10^3 (test code = 742-7) 0.54 10*3/uL 0.36-1.02 EOS x10^3 (test code = 711-2) 0.22 10*3/uL 0.06-0.53 BASO x10^3 (test code = 704-7) 0.06 10*3/uL 0.01-0.09 Lab Interpretation (test code = 29803-7) Abnormal [facility] with Uqwh2132-98-28 02:14:58* Test Item Value Reference Range Interpretation [...] 33.1 g/dL 31.2-35.0 RDW-SD (test code = 88646-3) 48.3 fL 38.5-51.6 RDW-CV (test code = 788-0) 14.2 % 12.1-15.4 PLT (test code = 777-3) 163 150-328 MPV (test code = 42491-7) 11.3 fL 9.8-13.0 NRBC/100 WBC (test code = 0224415937) 0.0 0.0-10.0 NRBC x10^3 (test code = 0005302649) See_Comment [Automated messa ge] The system which generated this result transmitted reference range: 10*3/?L. The reference range was not used to interpret this result as normal/abnormal. GRAN MAT (NEUT) % (test code = 770-8) 61.1 % IMM GRAN % (test code = 7195817000) 0.40 % LYMPH % (test code = 736-9) 21.8 % MONO % (test code = 5905-5) 11.0 % EOS % (test code = 713-8) 4.5 % BASO % (test code = 706-2) 1.2 % GRAN MAT x10^3(ANC) (test code = 7081751059) 2.99 10*3/uL 1.99-6.95 IMM GRAN x10^3 (test code = 2690675917) 0.00-0.06 LYMPH x10^3 (test code = 731-0) 1.07 10*3/uL 1.09-3.23 L MONO x10^3 (test code = 742-7) 0.54 10*3/uL 0.36-1.02 EOS x10^3 (test code = 711-2) 0.22 10*3/uL 0.06-0.53 BASO x10^3 (test code = 704-7) 0.06 10*3/uL 0.01-0.09 Lab Interpretation (test code = 01197-8) Abnormal [facility] with Ihnj7277-28-62 02:14:58* Test Item Value Reference Range Interpretation [...] 33.1 g/dL 31.2-35.0 RDW-SD (test code = 54942-9) 48.3 fL 38.5-51.6 RDW-CV (test code = 788-0) 14.2 % 12.1-15.4 PLT (test code = 777-3) 163 150-328 MPV (test code = 16553-5) 11.3 fL 9.8-13.0 NRBC/100 WBC (test code = 5956708130) 0.0 0.0-10.0 NRBC x10^3 (test code = 4387290603) See_Comment [Automated messa ge] The system which generated this result transmitted reference range: 10*3/?L. The reference range was not used to interpret this result as normal/abnormal. GRAN MAT (NEUT) % (test code = 770-8) 61.1 % IMM GRAN % (test code = 2192423681) 0.40 % LYMPH % (test code = 736-9) 21.8 % MONO % (test code = 5905-5) 11.0 % EOS % (test code = 713-8) 4.5 % BASO % (test code = 706-2) 1.2 % GRAN MAT x10^3(ANC) (test code = 4603573749) 2.99 10*3/uL 1.99-6.95 IMM GRAN x10^3 (test code = 9254504703) 0.00-0.06 LYMPH x10^3 (test code = 731-0) 1.07 10*3/uL 1.09-3.23 L MONO x10^3 (test code = 742-7) 0.54 10*3/uL 0.36-1.02 EOS x10^3 (test code = 711-2) 0.22 10*3/uL 0.06-0.53 BASO x10^3 (test code = 704-7) 0.06 10*3/uL 0.01-0.09 Lab Interpretation (test code = 43583-0) [facility] HospitalCritical Zysi5593-11-83 01:45:00Sanket Blair MD ? ? 07/02/2023 ?8:54 [...] of patient's condition and review of old chartsUnHCA Houston Healthcare Medical CenterPanretinal Photocoagulation - OD - Right Hum4935-94-88 17:38:37Time OutConfirmed correct patient, procedure, site, and [...] MD, supervised Dr. Dominguez perform intravitreal PRP OD.[facility] HospitalMagnesium Gcyyl2644-12-39 20:53:34* Test Item Value Reference Range Interpretation Comme nts MAGNESIUM (test code = 0271131564) 1.8 mg/dL 1.7-2.4 Lab Interpretation (test cod e = 12922-2) Normal [facility] Metabolic Panel (NA, K, CL, CO2, Glucose, BUN, Creatinine, CA)2023-05-23 20:53:14* Test Item Value Reference Range Interpretation Comme nts NA (test code = 2641992213) 141 mmol/L 135-145 K (test code = 2708247497) 4.8 mmol/L 3.5-5.0 CL (test code = 7071563642) 108 mmol/L 98-108 CO2 TOTAL (test code = 7447605765) 30 mmol/L 23-31 AGAP (test code = 9795698374) 3 2-16 BUN (test code = 6365911797) 18 mg/dL 7-23 GLUCOSE (test code = 4855928694) 90 mg/dL 70-110 CREATININE (test code = 5466073034) 1.55 mg/dL 0.60-1.25 H CALCIUM (test code = 7011633715) 10.5 mg/dL 8.6-10.6 eGFR (test code = 45672-3) 48.8 mL/min/1.73m2 CKD-EPI eGFR (2020). Assuming creatinine has been stable day-to-day for at least three months, the eGFR indicates Category G3a (45 - 59 mL/min/1.73 m2) Lab Interpretation (test code = 69725-2) [facility]normal [facility] HospitalPhosphorus Zvcgb6332-35-70 20:53:13* Test Item Value Reference Range Interpretation Comme nts PHOSPHORUS (test code = 6336199092) 2.5 mg/dL 2.5-5.0 Lab Interpretation (test cod e = 83253-9) Normal [facility] with Jlroaojovcob6092-18-59 18:39:51* Test Item Value Reference Range Interpretation [...] 32.1 g/dL 31.2-35.0 RDW-SD (test code = 92985-3) 52.6 fL 38.5-51.6 H RDW-CV (test code = 788-0) 14.8 % 12.1-15.4 PLT (test code = 777-3) 145 See_Comment L [Automated messa ge] The system which generated this result transmitted reference range: 150 - 328 10*3/?L. The reference range was not used to interpret this result as normal/abnormal. MPV (test code = 56436-2) 12.2 fL 9.8-13.0 NRBC/100 WBC (test code = 6811680095) 0.0 See_Comment [Automated [employer] ssage] The system which generated this result transmitted reference range: 0.0 - 10.0 /100 WBCs. The reference range was not used to interpret this result as normal/abnormal. NRBC x10^3 (test code = 9308537094) See_Comment [Automated messa ge] The system which generated this result transmitted reference range: 10*3/?L. The reference range was not used to interpret this result as normal/abnormal. GRAN MAT (NEUT) % (test code = 770-8) 64.1 % IMM GRAN % (test code = 7840494736) 0.20 % LYMPH % (test code = 736-9) 19.5 % MONO % (test code = 5905-5) 9.9 % EOS % (test code = 713-8) 4.5 % BASO % (test code = 706-2) 1.8 % GRAN MAT x10^3(ANC) (test code = 6953852186) 3.30 10*3/uL 1.99-6.95 IMM GRAN x10^3 (test code = 0868716698) 0.00-0.06 LYMPH x10^3 (test code = 731-0) 1.00 10*3/uL 1.09-3.23 L MONO x10^3 (test code = 742-7) 0.51 10*3/uL 0.36-1.02 EOS x10^3 (test code = 711-2) 0.23 10*3/uL 0.06-0.53 BASO x10^3 (test code = 704-7) 0.09 10*3/uL 0.01-0.09 Lab Interpretation (test code = 51014-9) [facility] HospitalIntravitreal Injection, Pharmacologic Agent - OD - Right Jej0914-54-59 16:46:19Time Out05/02/2023. 10:42 AM. Confirmed correct patient, procedure, site, and patient consented. AnesthesiaTopical anesthesia was used. Anesthetic medications included Lidocaine 3.5% gel, Proparacaine 0.5%. ProcedurePreparation included 5% betadine to ocular surface, eyelid speculum. A 32 gauge needle was used. Injection:1.25 mg bevacizumab 1.25 mg/0.05 mL ?Route: Intravitreal, Site: Right Eye ?[facility]: [address]-8, Lot: [id number], Expiration date: 08/07/2023 Post-opPost injection exam found [...] in 3-4 weeks for DFE/OCT/IVFA Diandra Tillman MDUnMary [facility]anning [facility]LE[facility]ULAR XHOFY1307-15-16 15:17:13* Test Item Value Reference Range Interpretation Comme nts POCT Molecular Strep (test c ode = 11665-0) Negative Negative Lab Interpretation (test cod e = 91025-6) Normal [facility] MOLECULAR [id number] 15:17:13* Test Item Value Reference Range Interpretation Comme nts POCT Molecular Strep (test c ode = 02096-1) Negative Negative Lab Interpretation (test cod e = 80571-7) Normal [facility], [id number] 19:53:32 * Test Item Value Reference Range Interpretation Comme [facility] Specimen Tested (test code = 3511378067) Plasma BK Virus DNA - log copies/mL (test code = 3324121556) See_Comment [Automated message] The system which generated this result transmitted reference range: <2.7 log copies/mL. The reference range was not used to interpret this result as normal/abnormal. BK Virus DNA - copies/mL (test code = 2525438220) See_Comment [Automated message] The system which generated [...] is a laboratory developed test using a milk runner labeled ASR (Analyte Specific Reagent) as the reagent providing the specificity of the assay. This test was developed and its performance characteristics determined by [facility] [[email or web address]] Clinical Microbiology Laboratory. It has not been [...] to perform high complexity clinical laboratory testing. [facility] HospitalTacrolimus, [id number] 15:46:25FK 506<3ng/mL09/25/2022 10:46 AM [facility] LABORATORY SERVICESTarget/Therapeutic Range KIDNEY ? Early (<3 [...] ?(>12 mo) ? ?8-10 Method by: ?Chemiflex, Canvas Cutter Hand [id number] [facility] CenterBasaint [facility] Metabolic Panel (NA, K, CL, CO2, Glucose, BUN, Creatinine, CA)2022-09-24 22:18:31* Test Item Value Reference Range Interpretation Comme nts NA (test code = 1571153041) 140 mmol/L 135-145 K (test code = 0359518292) 3.9 mmol/L 3.5-5.0 CL (test code = 9626619030) 107 mmol/L 98-108 CO2 TOTAL (test code = 5395294168) 28 mmol/L 23-31 AGAP (test code = 3294307640) 5 2-16 BUN (test code = 2875995382) 15 mg/dL 7-23 GLUCOSE (test code = 6044021021) 99 mg/dL 70-110 CREATININE (test code = 3838453025) 1.53 mg/dL 0.60-1.25 H CALCIUM (test code = 0475562492) 10.2 mg/dL 8.6-10.6 eGFR (test code = 0016128353) 45.8 mL/min/1.73m2 MARLENE (test code = MARLENE) [...] imaging tests). Lab Interpretation (test code = 25925-4) [facility] Jrglk7753-88-76 22:18:31* Test Item Value Reference Range Interpretation Comme nts MAGNESIUM (test code = 7312473558) 1.7 mg/dL 1.7-2.4 Lab Interpretation (test cod e = 02702-7) Normal [facility] Ikckc0875-44-42 22:18:11* Test Item Value Reference Range Interpretation Comme nts PHOSPHORUS (test code = 6372126385) 2.8 mg/dL 2.5-5.0 Lab Interpretation (test cod e = 36596-4) Normal [facility] with Zendjivhxufh9183-46-27 21:06:57* Test Item Value Reference Range Interpretation Comme nts WBC (test code = 6690-2) 5.73 See_Comment [Automated [employer]] The system which generated this result transmitted reference range: 4.20 - 10.70 10*3/?L. The reference range was not used to interpret this result as normal/abnormal. RBC (test code = 789-8) 3.87 See_Comment L [Automated [employer]] The system which generated this result transmitted [...] 32.0 g/dL 31.2-35.0 RDW-SD (test code = 79506-2) 46.5 fL 38.5-51.6 RDW-CV (test code = 788-0) 13.7 % 12.1-15.4 PLT (test code = 777-3) 150 See_Comment [Automated messa ge] The system which generated this result transmitted reference range: 150 - 328 10*3/?L. The reference range was not used to interpret this result as normal/abnormal. MPV (test code = 18202-3) 11.2 fL 9.8-13.0 NRBC/100 WBC (test code = 1282989310) 0.0 See_Comment [Automated [employer] ssage] The system which generated this result transmitted reference range: 0.0 - 10.0 /100 WBCs. The reference range was not used to interpret this result as normal/abnormal. NRBC x10^3 (test code = 5527030865) See_Comment [Automated [employer] ge] The system which generated this result transmitted reference range: 10*3/?L. The reference range was not used to interpret this result as normal/abnormal. GRAN MAT (NEUT) % (test code = 770-8) 63.0 % IMM GRAN % (test code = 4358586940) 0.30 % LYMPH % (test code = 736-9) 19.5 % MONO % (test code = 5905-5) 11.7 % EOS % (test code = 713-8) 4.5 % BASO % (test code = 706-2) 1.0 % GRAN MAT x10^3(ANC) (test code = 7793835314) 3.60 10*3/uL 1.99-6.95 IMM GRAN x10^3 (test code = 3226096333) 0.00-0.06 LYMPH x10^3 (test code = 731-0) 1.12 10*3/uL 1.09-3.23 MONO x10^3 (test code = 742-7) 0.67 10*3/uL 0.36-1.02 EOS x10^3 (test code = 711-2) 0.26 10*3/uL 0.06-0.53 BASO x10^3 (test code = 704-7) 0.06 10*3/uL 0.01-0.09 Lab Interpretation (test code = 00311-8) [facility]normal [facility] HospitalEX[facility]NAL NA-[id number] 00:00:00* Test Item Value Reference Range Interpretation Comme nts DD-cfDNA (External Results) (test code = 5126) 0.55 <=1.0 [facility] HospitalTacrolimus, Fwyfg7227-53-94 14:05:00* Test Item Value Reference Range Interpretation Comme nts FK 506 (test code = 9704773839) 7 ng/mL MARLENE (test code = MARLENE) [...] ?(>12 mo) ? ?8-10 Method by: ?Chemiflex, Canvas Cutter Hand i1000 [facility] HospitalTacrolimus, Ftmhl1984-03-55 14:05:00* Test Item Value Reference Range Interpretation Comme nts FK 506 (test code = 8200485217) 7 ng/mL MARLENE (test code = MARLENE) [...] ?(>12 mo) ? ?8-10 Method by: ?Chemiflex, Canvas Cutter Hand i1000 [facility] HospitalTacrolimus, Urakl7657-50-75 14:05:00* Test Item Value Reference Range Interpretation Comme nts FK 506 (test code = 5579568477) 7 ng/mL MARLENE (test code = MARLENE) [...] ?(>12 mo) ? ?8-10 Method by: ?Chemiflex, Canvas Cutter Hand i1000 [facility] HospitalTacrolimus, Xlfck7441-71-01 14:05:00* Test Item Value Reference Range Interpretation Comme nts FK 506 (test code = 8725137553) 7 ng/mL MARLENE (test code = MARLENE) [...] ?(>12 mo) ? ?8-10 Method by: ?Chemiflex, Canvas Cutter Hand i1000 [facility] HospitalTacrolimus, Qoimb6569-26-64 14:05:00* Test Item Value Reference Range Interpretation Comme nts FK 506 (test code = 4423497321) 7 ng/mL MARLENE (test code = MARLENE) [...] ?(>12 mo) ? ?8-10 Method by: ?Chemiflex, Canvas Cutter Hand i1000 [facility] with Rhlmawxauoio5920-53-26 21:08:35* Test Item Value Reference Range Interpretation [...] 31.3 g/dL 31.2-35.0 RDW-SD (test code = 76100-0) 46.7 fL 38.5-51.6 RDW-CV (test code = 788-0) 13.3 % 12.1-15.4 PLT (test code = 777-3) 145 See_Comment L [Automated messa ge] The system which generated this result transmitted reference range: 150 - 328 10*3/?L. The reference range was not used to interpret this result as normal/abnormal. MPV (test code = 13261-7) 11.8 fL 9.8-13.0 NRBC/100 WBC (test code = 2079106287) 0.0 See_Comment [Automated me ssage] The system which generated this result transmitted reference range: 0.0 - 10.0 /100 WBCs. The reference range was not used to interpret this result as normal/abnormal. NRBC x10^3 (test code = 7434701153) See_Comment [Automated messa ge] The system which generated this result transmitted reference range: 10*3/?L. The reference range was not used to interpret this result as normal/abnormal. GRAN MAT (NEUT) % (test code = 770-8) 80.2 % IMM GRAN % (test code = 4763659870) 0.30 % LYMPH % (test code = 736-9) 8.6 % MONO % (test code = 5905-5) 8.3 % EOS % (test code = 713-8) 1.8 % BASO % (test code = 706-2) 0.8 % GRAN MAT x10^3(ANC) (test code = 2007039127) 6.26 10*3/uL 1.99-6.95 IMM GRAN x10^3 (test code = 6968024540) 0.00-0.06 LYMPH x10^3 (test code = 731-0) 0.67 10*3/uL 1.09-3.23 L MONO x10^3 (test code = 742-7) 0.65 10*3/uL 0.36-1.02 EOS x10^3 (test code = 711-2) 0.14 10*3/uL 0.06-0.53 BASO x10^3 (test code = 704-7) 0.06 10*3/uL 0.01-0.09 Lab Interpretation (test code = 63447-9) Abnormal [facility] with Ssabefnkomuf3379-43-34 21:08:35* Test Item Value Reference Range Interpretation [...] 31.3 g/dL 31.2-35.0 RDW-SD (test code = 19149-2) 46.7 fL 38.5-51.6 RDW-CV (test code = 788-0) 13.3 % 12.1-15.4 PLT (test code = 777-3) 145 See_Comment L [Automated messa ge] The system which generated this result transmitted reference range: 150 - 328 10*3/?L. The reference range was not used to interpret this result as normal/abnormal. MPV (test code = 72520-9) 11.8 fL 9.8-13.0 NRBC/100 WBC (test code = 4721987495) 0.0 See_Comment [Automated [employer] ssage] The system which generated this result transmitted reference range: 0.0 - 10.0 /100 WBCs. The reference range was not used to interpret this result as normal/abnormal. NRBC x10^3 (test code = 8970583407) See_Comment [Automated messa ge] The system which generated this result transmitted reference range: 10*3/?L. The reference range was not used to interpret this result as normal/abnormal. GRAN MAT (NEUT) % (test code = 770-8) 80.2 % IMM GRAN % (test code = 0233414789) 0.30 % LYMPH % (test code = 736-9) 8.6 % MONO % (test code = 5905-5) 8.3 % EOS % (test code = 713-8) 1.8 % BASO % (test code = 706-2) 0.8 % GRAN MAT x10^3(ANC) (test code = 6058650555) 6.26 10*3/uL 1.99-6.95 IMM GRAN x10^3 (test code = 9116078397) 0.00-0.06 LYMPH x10^3 (test code = 731-0) 0.67 10*3/uL 1.09-3.23 L MONO x10^3 (test code = 742-7) 0.65 10*3/uL 0.36-1.02 EOS x10^3 (test code = 711-2) 0.14 10*3/uL 0.06-0.53 BASO x10^3 (test code = 704-7) 0.06 10*3/uL 0.01-0.09 Lab Interpretation (test code = 56676-3) Abnormal [facility] with Fkkursysjjmb5525-22-11 21:08:35* Test Item Value Reference Range Interpretation [...] 31.3 g/dL 31.2-35.0 RDW-SD (test code = 14785-8) 46.7 fL 38.5-51.6 RDW-CV (test code = 788-0) 13.3 % 12.1-15.4 PLT (test code = 777-3) 145 See_Comment L [Automated messa ge] The system which generated this result transmitted reference range: 150 - 328 10*3/?L. The reference range was not used to interpret this result as normal/abnormal. MPV (test code = 11211-7) 11.8 fL 9.8-13.0 NRBC/100 WBC (test code = 3818692089) 0.0 See_Comment [Automated me ssage] The system which generated this result transmitted reference range: 0.0 - 10.0 /100 WBCs. The reference range was not used to interpret this result as normal/abnormal. NRBC x10^3 (test code = 4673769130) See_Comment [Automated messa ge] The system which generated this result transmitted reference range: 10*3/?L. The reference range was not used to interpret this result as normal/abnormal. GRAN MAT (NEUT) % (test code = 770-8) 80.2 % IMM GRAN % (test code = 0406939806) 0.30 % LYMPH % (test code = 736-9) 8.6 % MONO % (test code = 5905-5) 8.3 % EOS % (test code = 713-8) 1.8 % BASO % (test code = 706-2) 0.8 % GRAN MAT x10^3(ANC) (test code = 6129833012) 6.26 10*3/uL 1.99-6.95 IMM GRAN x10^3 (test code = 1635384072) 0.00-0.06 LYMPH x10^3 (test code = 731-0) 0.67 10*3/uL 1.09-3.23 L MONO x10^3 (test code = 742-7) 0.65 10*3/uL 0.36-1.02 EOS x10^3 (test code = 711-2) 0.14 10*3/uL 0.06-0.53 BASO x10^3 (test code = 704-7) 0.06 10*3/uL 0.01-0.09 Lab Interpretation (test code = 43204-9) Abnormal [facility] with Jpafnqngwsba6524-85-12 21:08:35* Test Item Value Reference Range Interpretation [...] 31.3 g/dL 31.2-35.0 RDW-SD (test code = 34781-2) 46.7 fL 38.5-51.6 RDW-CV (test code = 788-0) 13.3 % 12.1-15.4 PLT (test code = 777-3) 145 See_Comment L [Automated messa ge] The system which generated this result transmitted reference range: 150 - 328 10*3/?L. The reference range was not used to interpret this result as normal/abnormal. MPV (test code = 70371-3) 11.8 fL 9.8-13.0 NRBC/100 WBC (test code = 3770724470) 0.0 See_Comment [Automated me ssage] The system which generated this result transmitted reference range: 0.0 - 10.0 /100 WBCs. The reference range was not used to interpret this result as normal/abnormal. NRBC x10^3 (test code = 7291024189) See_Comment [Automated messa ge] The system which generated this result transmitted reference range: 10*3/?L. The reference range was not used to interpret this result as normal/abnormal. GRAN MAT (NEUT) % (test code = 770-8) 80.2 % IMM GRAN % (test code = 7759476038) 0.30 % LYMPH % (test code = 736-9) 8.6 % MONO % (test code = 5905-5) 8.3 % EOS % (test code = 713-8) 1.8 % BASO % (test code = 706-2) 0.8 % GRAN MAT x10^3(ANC) (test code = 0921284400) 6.26 10*3/uL 1.99-6.95 IMM GRAN x10^3 (test code = 9859500086) 0.00-0.06 LYMPH x10^3 (test code = 731-0) 0.67 10*3/uL 1.09-3.23 L MONO x10^3 (test code = 742-7) 0.65 10*3/uL 0.36-1.02 EOS x10^3 (test code = 711-2) 0.14 10*3/uL 0.06-0.53 BASO x10^3 (test code = 704-7) 0.06 10*3/uL 0.01-0.09 Lab Interpretation (test code = 92466-0) Abnormal [facility] with Rhkxmfteldok5198-36-96 21:08:35* Test Item Value Reference Range Interpretation [...] 31.3 g/dL 31.2-35.0 RDW-SD (test code = 18907-8) 46.7 fL 38.5-51.6 RDW-CV (test code = 788-0) 13.3 % 12.1-15.4 PLT (test code = 777-3) 145 See_Comment L [Automated messa ge] The system which generated this result transmitted reference range: 150 - 328 10*3/?L. The reference range was not used to interpret this result as normal/abnormal. MPV (test code = 54187-8) 11.8 fL 9.8-13.0 NRBC/100 WBC (test code = 6090475877) 0.0 See_Comment [Automated me ssage] The system which generated this result transmitted reference range: 0.0 - 10.0 /100 WBCs. The reference range was not used to interpret this result as normal/abnormal. NRBC x10^3 (test code = 8614368764) See_Comment [Automated messa ge] The system which generated this result transmitted reference range: 10*3/?L. The reference range was not used to interpret this result as normal/abnormal. GRAN MAT (NEUT) % (test code = 770-8) 80.2 % IMM GRAN % (test code = 7029996612) 0.30 % LYMPH % (test code = 736-9) 8.6 % MONO % (test code = 5905-5) 8.3 % EOS % (test code = 713-8) 1.8 % BASO % (test code = 706-2) 0.8 % GRAN MAT x10^3(ANC) (test code = 1666743347) 6.26 10*3/uL 1.99-6.95 IMM GRAN x10^3 (test code = 7966768318) 0.00-0.06 LYMPH x10^3 (test code = 731-0) 0.67 10*3/uL 1.09-3.23 L MONO x10^3 (test code = 742-7) 0.65 10*3/uL 0.36-1.02 EOS x10^3 (test code = 711-2) 0.14 10*3/uL 0.06-0.53 BASO x10^3 (test code = 704-7) 0.06 10*3/uL 0.01-0.09 Lab Interpretation (test code = 42283-9) Abnormal [facility] Metabolic Panel (NA, K, CL, CO2, Glucose, BUN, Creatinine, CA)2022-07-12 20:55:16* Test Item Value Reference Range Interpretation Comme nts NA (test code = 5417550471) 140 mmol/L 135-145 K (test code = 8315736647) 4.6 mmol/L 3.5-5.0 CL (test code = 2215296384) 108 mmol/L 98-108 CO2 TOTAL (test code = 5181940116) 26 mmol/L 23-31 AGAP (test code = 1144630609) 6 2-16 BUN (test code = 1166473101) 28 mg/dL 7-23 H GLUCOSE (test code = 7132860385) 120 mg/dL 70-110 H CREATININE (test code = 0406162998) 1.94 mg/dL 0.60-1.25 H CALCIUM (test code = 6317854318) 10.1 mg/dL 8.6-10.6 eGFR (test code = 1967286042) 34.8 mL/min/1.73m2 MARLENE (test code = MARLENE) [...] imaging tests). Lab Interpretation (test code = 43994-1) Abnormal [facility] Tnujl3576-32-42 20:55:16* Test Item Value Reference Range Interpretation Comme nts MAGNESIUM (test code = 7680654625) 2.0 mg/dL 1.7-2.4 Lab Interpretation (test cod e = 49133-5) Normal [facility] (NA, K, CL, CO2, Glucose, BUN, Creatinine, CA)2022-07-12 20:55:16* Test Item Value Reference Range Interpretation Comme nts NA (test code = 5062524231) 140 mmol/L 135-145 K (test code = 7114456676) 4.6 mmol/L 3.5-5.0 CL (test code = 0054469944) 108 mmol/L 98-108 CO2 TOTAL (test code = 8542152704) 26 mmol/L 23-31 AGAP (test code = 3160414041) 6 2-16 BUN (test code = 6718840090) 28 mg/dL 7-23 H GLUCOSE (test code = 4387009191) 120 mg/dL 70-110 H CREATININE (test code = 0771309832) 1.94 mg/dL 0.60-1.25 H CALCIUM (test code = 9831535280) 10.1 mg/dL 8.6-10.6 eGFR (test code = 5159436009) 34.8 mL/min/1.73m2 MARLENE (test code = MARLENE) [...] imaging tests). Lab Interpretation (test code = 59407-1) [facility]normal [facility] Nvauw6222-59-06 20:55:16* Test Item Value Reference Range Interpretation Comme nts MAGNESIUM (test code = 5900686161) 2.0 mg/dL 1.7-2.4 Lab Interpretation (test cod e = 44576-0) Normal [facility] [place] (NA, K, CL, CO2, Glucose, BUN, Creatinine, CA)2022-07-12 20:55:16* Test Item Value Reference Range Interpretation Comme nts NA (test code = 1373529397) 140 mmol/L 135-145 K (test code = 5751283783) 4.6 mmol/L 3.5-5.0 CL (test code = 4064286199) 108 mmol/L 98-108 CO2 TOTAL (test code = 8646896161) 26 mmol/L 23-31 AGAP (test code = 7088308251) 6 2-16 BUN (test code = 1230572645) 28 mg/dL 7-23 H GLUCOSE (test code = 8969966044) 120 mg/dL 70-110 H CREATININE (test code = 6039587717) 1.94 mg/dL 0.60-1.25 H CALCIUM (test code = 9943829504) 10.1 mg/dL 8.6-10.6 eGFR (test code = 8193542360) 34.8 mL/min/1.73m2 MARLENE (test code = MARLENE) [...] imaging tests). Lab Interpretation (test code = 35625-9) [facility]normal [facility] Csnqr9288-24-77 20:55:16* Test Item Value Reference Range Interpretation Comme nts MAGNESIUM (test code = 4525789927) 2.0 mg/dL 1.7-2.4 Lab Interpretation (test cod e = 18373-0) Normal [facility] (NA, K, CL, CO2, Glucose, BUN, Creatinine, CA)2022-07-12 20:55:16* Test Item Value Reference Range Interpretation Comme nts NA (test code = 4136616289) 140 mmol/L 135-145 K (test code = 2274767984) 4.6 mmol/L 3.5-5.0 CL (test code = 3852685957) 108 mmol/L 98-108 CO2 TOTAL (test code = 7685933488) 26 mmol/L 23-31 AGAP (test code = 2653849724) 6 2-16 BUN (test code = 1677795863) 28 mg/dL 7-23 H GLUCOSE (test code = 9875062373) 120 mg/dL 70-110 H CREATININE (test code = 3921400989) 1.94 mg/dL 0.60-1.25 H CALCIUM (test code = 4401452754) 10.1 mg/dL 8.6-10.6 eGFR (test code = 4017316991) 34.8 mL/min/1.73m2 MARLENE (test code = MARLENE) [...] imaging tests). Lab Interpretation (test code = 06913-4) [facility]normal [facility] Kutxg4888-90-24 20:55:16* Test Item Value Reference Range Interpretation Comme nts MAGNESIUM (test code = 7513006173) 2.0 mg/dL 1.7-2.4 Lab Interpretation (test cod e = 56784-9) Normal [facility] [place] [facility] (NA, K, CL, CO2, Glucose, BUN, Creatinine, CA)2022-07-12 20:55:16* Test Item Value Reference Range Interpretation Comme nts NA (test code = 8524931283) 140 mmol/L 135-145 K (test code = 1323768353) 4.6 mmol/L 3.5-5.0 CL (test code = 6057944145) 108 mmol/L 98-108 CO2 TOTAL (test code = 8426191419) 26 mmol/L 23-31 AGAP (test code = 7589791522) 6 2-16 BUN (test code = 7394077180) 28 mg/dL 7-23 H GLUCOSE (test code = 8551576051) 120 mg/dL 70-110 H CREATININE (test code = 3530472111) 1.94 mg/dL 0.60-1.25 H CALCIUM (test code = 0219988672) 10.1 mg/dL 8.6-10.6 eGFR (test code = 7263882660) 34.8 mL/min/1.73m2 MARLENE (test code = MARLENE) [...] imaging tests). Lab Interpretation (test code = 24694-1) Abnormal [facility] Wxrsc3584-04-83 20:55:16* Test Item Value Reference Range Interpretation Comme nts MAGNESIUM (test code = 8250665333) 2.0 mg/dL 1.7-2.4 Lab Interpretation (test cod e = 77703-9) [facility] Weiwb9010-88-88 20:54:56* Test Item Value Reference Range Interpretation Comme nts PHOSPHORUS (test code = 6632331499) 2.3 mg/dL 2.5-5.0 L Lab Interpretation (test cod e = 29670-2) [facility] Mhaxv3548-08-70 20:54:56* Test Item Value Reference Range Interpretation Comme nts PHOSPHORUS (test code = 7899327127) 2.3 mg/dL 2.5-5.0 L Lab Interpretation (test cod e = 33352-4) [facility] Eikxe2901-36-28 20:54:56* Test Item Value Reference Range Interpretation Comme nts PHOSPHORUS (test code = 6632419424) 2.3 mg/dL 2.5-5.0 L Lab Interpretation (test cod e = 48993-4) [facility] Qizli4293-09-52 20:54:56* Test Item Value Reference Range Interpretation Comme nts PHOSPHORUS (test code = 8732884702) 2.3 mg/dL 2.5-5.0 L Lab Interpretation (test cod e = 71209-3) [facility] Nichj7779-43-00 20:54:56* Test Item Value Reference Range Interpretation Comme nts PHOSPHORUS (test code = 3762074526) 2.3 mg/dL 2.5-5.0 L Lab Interpretation (test cod e = 50609-9) Abnormal [facility] Metabolic Panel (NA, K, CL, CO2, Glucose, BUN, Creatinine, CA)2022-05-30 20:18:40* Test Item Value Reference Range Interpretation Comme nts NA (test code = 1716710131) 141 mmol/L 135-145 K (test code = 4519868268) 4.7 mmol/L 3.5-5.0 CL (test code = 4274633840) 109 mmol/L 98-108 H CO2 TOTAL (test code = 2551728463) 28 mmol/L 23-31 AGAP (test code = 3535249578) 4 2-16 BUN (test code = 3027580875) 18 mg/dL 7-23 GLUCOSE (test code = 0392333962) 91 mg/dL 70-110 CREATININE (test code = 1688912442) 1.50 mg/dL 0.60-1.25 H CALCIUM (test code = 8015957434) 9.9 mg/dL 8.6-10.6 eGFR (test code = 8102609106) 46.8 mL/min/1.73m2 MARLENE (test code = MARLENE) [...] imaging tests). Lab Interpretation (test code = 02763-9) [facility] Garxe9715-67-72 20:18:40* Test Item Value Reference Range Interpretation Comme nts MAGNESIUM (test code = 0738858871) 1.9 mg/dL 1.7-2.4 Lab Interpretation (test cod e = 74526-2) Normal [facility] Qjyly8765-81-96 20:18:19* Test Item Value Reference Range Interpretation Comme nts PHOSPHORUS (test code = 6703794957) 2.9 mg/dL 2.5-5.0 Lab Interpretation (test cod e = 59965-4) Normal [facility] with Jqzuuwkbhuqi5749-69-12 20:09:39* Test Item Value Reference Range Interpretation Comme nts WBC (test code = 6690-2) 4.58 See_Comment [Automated messa ge] The system which generated this result transmitted reference range: 4.20 - 10.70 10*3/?L. The reference range was not used to interpret this result as normal/abnormal. RBC (test code = 789-8) 4.15 See_Comment L [Automated messa ge] The system [...] 31.7 g/dL 31.2-35.0 RDW-SD (test code = 59587-4) 49.0 fL 38.5-51.6 RDW-CV (test code = 788-0) 13.7 % 12.1-15.4 PLT (test code = 777-3) 133 See_Comment L [Automated messa ge] The system which generated this result transmitted reference range: 150 - 328 10*3/?L. The reference range was not used to interpret this result as normal/abnormal. MPV (test code = 24300-5) 12.2 fL 9.8-13.0 IPF % (test code = 7160766383) 9.8 % 1.2-10.7 Platelet count measured by fluorescence method. NRBC/100 WBC (test code = 1850617791) 0.0 See_Comment [Automated [employer] ssage] The system which generated this result transmitted reference range: 0.0 - 10.0 /100 WBCs. The reference range was not used to interpret this result as normal/abnormal. NRBC x10^3 (test code = 4273026992) See_Comment [Automated [employer]] The system which generated this result transmitted reference range: 10*3/?L. The reference range was not used to interpret this result as normal/abnormal. GRAN MAT (NEUT) % (test code = 770-8) 55.7 % IMM GRAN % (test code = 4134961565) 0.20 % LYMPH % (test code = 736-9) 25.3 % MONO % (test code = 5905-5) 13.8 % EOS % (test code = 713-8) 4.1 % BASO % (test code = 706-2) 0.9 % GRAN MAT x10^3(ANC) (test code = 4195034380) 2.55 10*3/uL 1.99-6.95 IMM GRAN x10^3 (test code = 0937152336) 0.00-0.06 LYMPH x10^3 (test code = 731-0) 1.16 10*3/uL 1.09-3.23 MONO x10^3 (test code = 742-7) 0.63 10*3/uL 0.36-1.02 EOS x10^3 (test code = 711-2) 0.19 10*3/uL 0.06-0.53 BASO x10^3 (test code = 704-7) 0.04 10*3/uL 0.01-0.09 Lab Interpretation (test code = 95050-5) [id number] 00:00:00* Test Item Value Reference Range Interpretation Comme nts DD-cfDNA (External Results) (test code = 5126) See_Comment [Automated Abcama ge] The system which generated this result transmitted reference range: <=1.0. The reference range was not used to interpret this result as normal/abnormal. [facility] GRP A STREP (MOLECULAR)2022-03-12 22:00:00* Test Item Value Reference Range Interpretation Comme nts POCT GP A STREP (test code = 85536-5) negative Negative - Negative [facility] GRP A STREP (MOLECULAR)2022-03-12 22:00:00* Test Item Value Reference Range Interpretation Comme nts POCT GP A STREP (test code = 83064-7) negative Negative - Negative [facility] HEMOGLOBIN A1C [id number] 17:04:00* Test Item Value Reference Range Interpretation Comme nts POCT HBA1C (test code = 4548-4) 5.6 % 4-6 [facility] HEMOGLOBIN A1C [id number] 17:04:00* Test Item Value Reference Range Interpretation Comme nts POCT HBA1C (test code = 4548-4) 5.6 % 4-6 [facility]HCV) BY QUANTITATIVE NAAT 2022 20:04:37* Test Item Value Reference Range Interpretation Comme [facility] HCV Quantitative Interpretation (test code = 1656302439) Not Detected Not Detected MARLENE (test code = MARLENE) The Aptima HCV Francis nt Dx assay is an FDA-approved real-time mechanic and welder-mediated amplification (TMA) test used for both detection [...] clinically indicated. Lab Interpretation (test code = 52287-8) Normal [facility] HospitalTac[facility], [id number] 16:13:27* Test Item Value Reference Range Interpretation Comme nts FK 506 (test code = 4869533123) 5 ng/mL MARLENE (test code = MARLENE) [...] ?(>12 mo) ? ?8-10 Method by: ?Chemiflex, Canvas Cutter Hand i1000 [facility] with [id number] 22:53:40* Test Item Value Reference Range Interpretation Comme nts WBC (test code = 6690-2) See_Comment [Automated messa ge] The system which generated this result transmitted reference range: 4.20 - 10.70 10*3/?L. The reference range was not used to interpret this result as normal/abnormal. RBC (test code = 789-8) See_Comment L [Automated [employer] ge] The system which generated this result [...] 32.0 g/dL 31.2-35 RDW-SD (test code = 27514-8) 47.1 fL 38.5-51.6 RDW-CV (test code = 788-0) 13.1 % 12.1-15.4 PLT (test code = 777-3) See_Comment L [Automated [employer] ge] The system which generated this result transmitted reference range: 150 - 328 10*3/?L. The reference range was not used to interpret this result as normal/abnormal. MPV (test code = 26355-3) 12.8 fL 9.8-13 IPF % (test code = 6958539302) 6.8 % 1.2-10.7 Platelet count measured by fluorescence method. NRBC/100 WBC (test code = 8386010988) See_Comment [Automated [employer] ssage] The system which generated this result transmitted reference range: 0.0 - 10.0 /100 WBCs. The reference range was not used to interpret this result as normal/abnormal. NRBC x10^3 (test code = 4942560082) See_Comment [Automated [employer] ge] The system which generated this result transmitted reference range: 10*3/?L. The reference range was not used to interpret this result as normal/abnormal. GRAN MAT (NEUT) % (test code = 770-8) 72.9 % IMM GRAN % (test code = 9569274263) 0.50 % LYMPH % (test code = 736-9) 14.6 % MONO % (test code = 5905-5) 8.7 % EOS % (test code = 713-8) 2.2 % BASO % (test code = 706-2) 1.1 % GRAN MAT x10^3(ANC) (test code = 3893442531) 4.04 10*3/uL 1.99-6.95 IMM GRAN x10^3 (test code = 2395479288) 0.03 10*3/uL 0-0.06 LYMPH x10^3 (test code = 731-0) 0.81 10*3/uL 1.09-3.23 L MONO x10^3 (test code = 742-7) 0.48 10*3/uL 0.36-1.02 EOS x10^3 (test code = 711-2) 0.12 10*3/uL 0.06-0.53 BASO x10^3 (test code = 704-7) 0.06 10*3/uL 0.01-0.09 Lab Interpretation (test code = 76291-9) [facility]normal [facility] [id number] 21:15:06* Test Item Value Reference Range Interpretation Comme nts MAGNESIUM (test code = 4713681571) 1.7 mg/dL 1.7-2.4 Lab Interpretation (test cod e = 98394-7) Normal [facility]OLIC PAN[facility] (58076)2022-01-24 21:15:06* Test Item Value Reference Range Interpretation Comme nts NA (test code = 7651446504) 140 mmol/L 135-145 K (test code = 4818442823) 4.4 mmol/L 3.5-5 CL (test code = 8821924261) 105 mmol/L 98-108 CO2 TOTAL (test code = 8581438709) 29 mmol/L 23-31 AGAP (test code = 0979269689) 2-16 BUN (test code = 4350960141) 17 mg/dL 7-23 GLUCOSE (test code = 2661568148) 119 mg/dL 70-110 H CREATININE (test code = 6269121520) 1.57 mg/dL 0.6-1.25 H TOTAL BILI (test code = 4926591293) 0.6 mg/dL 0.1-1.1 CALCIUM (test code = 8387271327) 10.8 mg/dL 8.6-10.6 H T PROTEIN (test code = 7827931174) 8.4 g/dL 6.3-8.2 H ALBUMIN (test code = 8354449161) 4.4 g/dL 3.5-5 ALK PHOS (test code = 4701703663) 76 U/L 34-122 ALTv (test code = 1742-6) 23 U/L 5-50 AST(SGOT) (test code = 0128503368) 42 U/L 13-40 H eGFR (test code = 2575779713) mL/min/1.73m2 MARLENE (test code = MARLENE) Association [...] imaging tests). Lab Interpretation (test code = 56535-2) Abnormal [facility] Hospital[facility]osphorus [id number] 21:14:45* Test Item Value Reference Range Interpretation Comme nts PHOSPHORUS (test code = 7904651980) 2.8 mg/dL 2.5-5 Lab Interpretation (test cod e = 94020-9) Normal [facility] Consult Notes Date/Time Note Provider Source 2025-01-05 15:19:14 Associated Order(s): CONSULT INTERVENTIONAL RADIOLOGY VASCULAR & INTERVENTIONAL RADIOLOGY H&P/CONSULT NOTE: PCP: Abner Rivera Date of Service: 01/05/2025 History of Present Illness 69 year old year old male with history of ESRD 2/2 s/p cadaveric renal txp (2004) on immunosupp, CAD s/p CABG on DAPT (2023) , Afib, hx of CVA, HFpEF, HTN, HLD. IR was consulted for hydronephrosis in the setting of slowly enlarging perinephric mass with nonspecific imaging features on MRI. He has a PCN in place and biopsy was performed 12/31. We were re-engaged to convert his PCN to PCNU. Discussed procedure with the patient for which he is amenable at this time. PAST MEDICAL HISTORY Past Medical History: Diagnosis [...] N/A 10/17/2016 Surgeon: Cheri Mcintyre MD; Location: [facility] Location COLONOSCOPY N/A 11/07/2020 Surgeon: Jasmyne Roper MD; Location[facility] CORONARY ARTERY BYPASS GRAFT N/A 07/08/2023 Surgeon: Jt Alejandro MD; Location: [facility] ENDOSCOPIC VEIN HARVEST (SHX) Left 07/08/2023 Surgeon: Jt Alejandro MD; Location: [facility] LIVER BIOPSY 03/27/2004 NEPHRECTOMY 05/18/2004 Bilateral OPEN CHOLECYSTECTOMY N/A 09/28/2014 Surgeon: Ramon Landry MD; Location: [facility] OTHER 04/26/2005 Drainage of fluid PARATHYROIDECTOMY PERCUTANEOUS NEPHROSTOMY TUBE PLACEMENT 04/29/2005 [place] PATIENT HAS A CORONARY ARTERY STENT TRANSURETHRAL PROSTATE VAPORIZATION N/A 02/12/2019 Surgeon: Williams Ashley MD; Location: [place] Location VOIDING CYSTOURETHROGRAM 02/08/2004 XR KUB 02/07/2004, 03/08/2005, 03/24/2005 Family History Problem Relation Age of Onset Hypertension Mother Hypertension Sister Hypertension Brother Coronary Heart Disease Brother [place] at age 45 Cancer Maternal Uncle Prostate Cancer Maternal Uncle Prostate ALLERGIES No Known Allergies MEDICATIONS No current facility-administered medications on file prior to encounter. Current Outpatient Medications on File Prior to Encounter Medication Sig Dispense Refill fluticasone propionate 50 mcg/actuation nasal spray Use 1 Emmonak in each nostril in the morning. 16 g 2 PREDNISONE 5 mg tablet TAKE 1 TABLET BY MOUTH EVERY DAY IN THE MORNING 90 tablet 3 mycophenolate 250 mg capsule Take 2 capsules by mouth in the morning and 2 capsules in the evening. OR PER TRANSPLANT DOCTOR. Z 94.0 Kidney transplant Generic permitted Indications: z94.0 kidney transplant 360 capsule 3 tacrolimus 1 mg capsule Take 5 capsules by mouth in the morning and 5 capsules in the evening. 900 capsule 3 dupilumab (DUPIXENT PEN) 300 mg/2 mL PnIj inject 1 Pen under the skin every 14 (fourteen) days. 2 Pen 11 ergocalciferol, vitamin d2, 1,250 mcg (50,000 unit) capsule Take 1 capsule by mouth weekly. 26 capsule 1 allopurinoL 100 mg tablet Take 1 tablet by mouth in the morning. 90 tablet 1 amLODIPine 10 mg tablet Take 1 tablet by mouth in the morning. 90 tablet 1 Magnesium 250 mg Tab Take 1 tablet by mouth in the morning. 90 tablet 1 mirtazapine 7.5 mg tablet Take 1 tablet by mouth at bedtime. 90 tablet 1 pravastatin 40 mg tablet Take 1 tablet by mouth at bedtime. 90 tablet 1 tamsulosin 0.4 mg 24 hr capsule Take 2 capsules by mouth at bedtime. 180 capsule 1 EZETIMIBE 10 mg tablet TAKE 1 TABLET BY MOUTH EVERY DAY IN THE MORNING 90 tablet 1 ticagrelor 90 mg tablet Take 1 tablet by mouth in the morning and 1 tablet in the evening. triamcinolone acetonide 0.1 % cream Apply to area(s) 2 (two) times daily as needed for Dermatitis/Rash. 80 g 2 fluocinonide 0.05 % cream Apply to area(s) 2 (two) times daily. 60 g 3 SOCIAL HISTORY Social History Socioeconomic History Marital status: Number of children: 2 Years of education: 12 Highest education level: Bachelor's degree (e.g., BA, AB, BS) Occupational History Occupation: retired Tobacco Use Smoking status: Former Current packs/day: 0.50 Types: Cigarettes Smokeless tobacco: Never Tobacco comments: Denies. Former smoker , 0.5 ppd Quit 6 yrs ago Substance and Sexual Activity Alcohol use: No Comment: social drinker, no etoh after transplant Social History Narrative Lives home alone Social Drivers of Health Financial Resource Strain: High Risk (01/21/2024) Overall Financial Resource Strain (CARDIA) Difficulty of Paying Living Expenses: Hard Food Insecurity: Food Insecurity Present (01/21/2024) Hunger Vital Sign Worried About Running Out of Food in the Last Year: Never true Ran Out of Food in the Last Year: Sometimes true Transportation Needs: Unmet Transportation Needs (01/21/2024) PRAPARE - Transportation Lack of Transportation (Medical): Yes Lack of Transportation (Non-Medical): No Physical Activity: Insufficiently Active (01/21/2024) Exercise Vital Sign Days of Exercise per Week: 2 days Minutes of Exercise per Session: 10 min Social Connections: Unknown (07/03/2023) Social Connection and Isolation Panel [NHANES] Frequency of Communication with Friends and Family: More than three times a week Marital Status: Housing Stability: High Risk (01/21/2024) Housing Stability Vital Sign Unable to Pay for Housing in the Last Year: Yes Number of Places Lived in the Last Year: 1 Unstable Housing in the Last Year: No PERTINENT REVIEW OF SYSTEMS 12 point review of systems negative except for what is in aforementioned HPI PHYSICAL EXAMINATION Vitals: 01/04/25 2309 01/05/25 0422 01/05/25 0742 01/05/25 1102 BP: (!) 162/99 130/86 (!) 147/87 129/69 Pulse: 85 86 87 71 Resp: 18 18 16 16 Temp: 36.4 ?C (97.6 ?F) 36.6 ?C (97.9 ?F) 36.7 ?C (98 ?F) 36.3 ?C (97.3 ?F) TempSrc: SpO2: 100% 100% 100% 99% Weight: Height: PF: General: NAD HEENT: normocephalic Respiratory: no respiratory distress Cardiovascular: regular rate LABS - reviewed pertinent labs as below: HGA1C Lab Results Component Value Date HGBA1C 5.7 08/03/2024 HGBA1C 5.2 03/27/2004 Lipid Panel @LABRCNTIP(CHOL,TRIG,HDL,LDL)@ BMP Lab Results Component Value Date NA 141 01/05/2025 NA 140 06/03/2018 NA 141 07/18/2014 K 4.0 01/05/2025 K 4.3 06/03/2018 K 4.3 07/18/2014 CL 112 (H) 01/05/2025 CL 105 06/03/2018 CL 106 07/18/2014 BUN 11 01/05/2025 BUN 17 06/03/2018 BUN 25 (H) 07/18/2014 Hepatic Function Panel Lab Results Component Value Date ALKPHOS 93 12/23/2024 AST 39 12/23/2024 ALT 17 12/23/2024 CBC WBC x10 3 (/uL) Date Value 07/18/2014 5.1 WHITE BLOOD CELL COUNT-Q (Thousand/uL) Date Value 06/03/2018 5.4 WBC (10*3/?L) Date Value 01/05/2025 6.48 RBC x10 6 (/uL) Date Value 07/18/2014 4.43 RED BLOOD CELL COUNT-Q (Million/uL) Date Value 06/03/2018 3.97 (L) RBC (10*6/?L) Date Value 01/05/2025 2.74 (L) PLT x10 3 (/uL) Date Value 07/18/2014 190 PLATELET COUNT-Q (Thousand/uL) Date Value 06/03/2018 155 PLT (10*3/?L) Date Value 01/05/2025 360 (H) THB (G/DL) Date Value 05/18/2004 14.6 HGB Date Value 01/05/2025 8.1 g/dL (L) 07/18/2014 13.6 G/DL HEMOGLOBIN-Q (g/dL) Date Value 06/03/2018 12.5 (L) HCT (%) Date Value 01/05/2025 25.7 (L) 07/18/2014 42.3 HEMATOCRIT-Q (%) Date Value 06/03/2018 36.4 (L) Coags PT INR (no units) Date Value 01/21/2013 0.9 INR (no units) Date Value 12/31/2024 1.0 PROTIME (SEC) Date Value 01/21/2013 12.5 PROTIME PATIENT (Seconds) Date Value 12/31/2024 11.6 APTT (SEC) Date Value 01/21/2013 28 APTT Patient (Seconds) Date Value 12/31/2024 27 IMAGING - Independently reviewed & interpreted MRI abdomen 12/27/24 - nonspecific mass ASSESSMENT/PLAN Cely Myers is a 69 year old male with PMH as listed above, admitted to the hospital with: #transplant kidney w/ obstructive hydro s/p PCN 12/25 #transplant perinephric mass; 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 Likely 01/06. - Risks, benefits, and alternatives discussed with the patient, and the patient's questions were answered. - will d/w faculty concerning biopsy findings. Further recs to follow Katie Hawley MD Vascular & Interventional Radiology, PGY5 [facility] 2024-12-25 06:53:29 Associated Order(s): CONSULT UROLOGY UROLOGY CONSULTATION NOTE Date of Service: 12/25/2024 Reason for Consult: Hematuria History of Present Illness Cely Myers, 69 year old male with PMH of ESRD s/p DDKT (2004), BPH s/p TURP, CAD s/p CABG on DAPT, Aib, HF who presents with SKI and decreased UOP. Patient is altered. Was reporting RLQ/Kidney pain and was found to have mass compressing transplant kidney/ureter/possible renal vasculature. Patient was placed on Hep Gtt and underwent a PCN placement with significant hematuria and clot retention. PCN clotted off almost immediately, and bladder had >300cc of clot on bladder scan He is AF, HDS, WBC 5.92, HGB 10.5, Cr 2.17, CTAP showing 12cm mass compressing transplant kidney that now has PCN in place Review of Systems: +per HPI Physical Exam: Vitals: 12/25/24 0341 BP: Pulse: 76 Resp: 18 Temp: SpO2: 97% NCAT NAD RRR : 26fr 3 way catheter draining poorly GI: Soft, nontender, nondistended Radiology: Reviewed, per HPI Procedure: [address] hematuria catheter was placed in the usual sterile fashion without difficulty, 20 cc of sterile water placed into fritz balloon. Aseptic technique was used to inject sterile water through the catheter drainage port using a 50 cc catheter-tip syringe. The bladder was manually flushed and ~ 200 cc of clot was evacuated. The patient tolerated the procedure well. CBI was not initiated. Assessment: Cely Myers is a 69 year old male cardiopath s/p PCN placed on DDKT while on heparin gtt, now with severe hematuria and clot retention requiring hours of manual irrigation without success and a clotted off PCN. Recommendations: - IR to replace PCN and consider embolization of kidney in the setting of likely active bleed - Urology to monitor catheter - HOLD ALL AC/AP Agents - Trend HGB, transfuse as needed - Do not initiate CBI at this time as catheter only has intermittent draining - If catheter clots off, If the patient complains of bladder distention or bladder pain: If catheter stops draining due to blood clots: Use 50 cc cath tip syringe and inject 50-100 cc of NS, then draw back on syringe with pressure to evacuate clots Repeat above step with injection of 50 cc followed by pulling back to evacuate more clots until urine appears clear to light pink Discussed with Dr Dion Mckeon 12/25/2024 6:53 AM Urology Resident Please page orthodontist assistant using [employer] Cosigned by Williams Ashley MD at 12/26/2024 3:47 PM CDT Associated attestation - Williams Ashley MD - 12/26/2024 3:47 PM CDT I discussed the case with the resident and agreed with the findings and plan as documented by the resident. My additions or revisions are included in the record. Williams Ashley MD [facility] 2024-12-24 06:31:17 Associated Order(s): CONSULT INTERVENTIONAL RADIOLOGY VASCULAR AND INTERVENTIONAL RADIOLOGY CONSULT NOTE 12/24/2024 Referring physician/service: Transplant Surgery, Dr. 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 IR was consulted for hydronephrosis in the setting of slowly enlarging perinephric mass. No Known Allergies Past Medical History: Diagnosis Date Abnormal SPEP [...] Jt Alejandro MD; [facility] CHOLECYSTECTOMY 09/28/2014 COLONOSCOPY N/A 10/17/2016 Surgeon: Cheri Mcintyre MD; Location[facility] Location COLONOSCOPY N/A 11/07/2020 Surgeon: Jasmyne Roper MD; Location: [facility] Location CORONARY ARTERY BYPASS GRAFT N/A 07/08/2023 Surgeon: Jt Alejandro MD; Location: [facility] ENDOSCOPIC VEIN HARVEST (SHX) Left 07/08/2023 Surgeon: Jt Alejandro MD; Location: [facility] [place] LIVER BIOPSY 03/27/2004 NEPHRECTOMY 05/18/2004 Bilateral OPEN CHOLECYSTECTOMY N/A 09/28/2014 Surgeon: Ramon Landry MD; Location: [facility] OTHER 04/26/2005 Drainage of fluid PARATHYROIDECTOMY PERCUTANEOUS NEPHROSTOMY TUBE PLACEMENT 04/29/2005 [place] PATIENT HAS A CORONARY ARTERY STENT TRANSURETHRAL PROSTATE VAPORIZATION N/A 02/12/2019 Surgeon: Williams Ashley MD; Location[facility] VOIDING CYSTOURETHROGRAM 02/08/2004 XR KUB 02/07/2004, 03/08/2005, 03/24/2005 No current facility-administered medications on file prior to encounter. Current Outpatient Medications on File Prior to Encounter Medication Sig Dispense Refill fluticasone propionate 50 mcg/actuation nasal spray Use 1 Emmonak in each nostril in the morning. 16 g 2 PREDNISONE 5 mg tablet TAKE 1 TABLET BY MOUTH EVERY DAY IN THE MORNING 90 tablet 3 furosemide 20 mg tablet Take 2 tablets by mouth every morning and evening. 180 tablet 1 mycophenolate 250 mg capsule Take 2 capsules by mouth in the morning and 2 capsules in the evening. OR PER TRANSPLANT DOCTOR. Z 94.0 Kidney transplant Generic permitted Indications: z94.0 kidney transplant 360 capsule 3 tacrolimus 1 mg capsule Take 5 capsules by mouth in the morning and 5 capsules in the evening. 900 capsule 3 minoxidiL 10 mg tablet TAKE 1/2 TABLET BY MOUTH TWICE A DAY 30 tablet 2 dupilumab (DUPIXENT PEN) 300 mg/2 mL PnIj inject 1 Pen under the skin every 14 (fourteen) days. 2 Pen 11 calcium carbonate (OYSTER SHELL CALCIUM 500) 500 mg calcium (1,250 mg) tablet Take 1 tablet by mouth in the morning. 90 tablet 1 ergocalciferol, vitamin d2, 1,250 mcg (50,000 unit) capsule Take 1 capsule by mouth weekly. 26 capsule 1 allopurinoL 100 mg tablet Take 1 tablet by mouth in the morning. 90 tablet 1 amLODIPine 10 mg tablet Take 1 tablet by mouth in the morning. 90 tablet 1 labetaloL 200 mg tablet Take 2 tablets by mouth every 12 (twelve) hours. 360 tablet 1 lisinopriL 5 mg tablet Take 1 tablet by mouth every morning. 90 tablet 1 Magnesium 250 mg Tab Take 1 tablet by mouth in the morning. 90 tablet 1 mirtazapine 7.5 mg tablet Take 1 tablet by mouth at bedtime. 90 tablet 1 pravastatin 40 mg tablet Take 1 tablet by mouth at bedtime. 90 tablet 1 sucralfate 1 gram tablet TAKE 1 TABLET BY MOUTH FOUR TIMES A DAY 360 tablet 1 tamsulosin 0.4 mg 24 hr capsule Take 2 capsules by mouth at bedtime. 180 capsule 1 EZETIMIBE 10 mg tablet TAKE 1 TABLET BY MOUTH EVERY DAY IN THE MORNING 90 tablet 1 ticagrelor 90 mg tablet Take 1 tablet by mouth in the morning and 1 tablet in the evening. triamcinolone acetonide 0.1 % cream Apply to area(s) 2 (two) times daily as needed for Dermatitis/Rash. 80 g 2 fluocinonide 0.05 % cream Apply to area(s) 2 (two) times daily. 60 g 3 Review of Systems Constitutional: denies chills, denies fatigue and denies fever . Mouth/Throat: negative. Neck: negative Cardiovascular: denies chest pain and denies palpitations. Respiratory: denies cough , denies shortness of breath and denies wheezing. Gastrointestinal: mild abdominal pain Genitourinary: negative. Musculoskeletal: denies back pain, denies joint pain, denies muscle pain and denies weakness. Skin: negative. Neuro: negative. Endocrine: negative. Hem/Lymph: negative. Vitals: 12/23/24 2301 12/24/24 0051 12/24/24 0400 12/24/24 0417 BP: (!) 140/70 (!) 161/81 Pulse: 96 86 86 Resp: 20 18 Temp: 36.4 ?C (97.5 ?F) 36.4 ?C (97.6 ?F) TempSrc: Tympanic SpO2: 95% 98% 93% Weight: 187 lb 6.3 oz (85 kg) Height: Physical Exam Appearance: patient alert and in no acute distress Oropharynx: moist mucus membranes Neck: supple, no lymphadenopathy or thyromegaly Respiratory: nonlabored on room air Abdomen: soft, nondistended, mildly ttp in RLQ Labs CBC WBC x10 3 (/uL) Date Value 07/18/2014 5.1 WHITE BLOOD CELL COUNT-Q (Thousand/uL) Date Value 06/03/2018 5.4 WBC (10*3/?L) Date Value 12/24/2024 5.48 RBC x10 6 (/uL) Date Value 07/18/2014 4.43 RED BLOOD CELL COUNT-Q (Million/uL) Date Value 06/03/2018 3.97 (L) RBC (10*6/?L) Date Value 12/24/2024 3.34 (L) PLT x10 3 (/uL) Date Value 07/18/2014 190 PLATELET COUNT-Q (Thousand/uL) Date Value 06/03/2018 155 PLT (10*3/?L) Date Value 12/24/2024 214 THB (G/DL) Date Value 05/18/2004 14.6 HGB Date Value 12/24/2024 9.6 g/dL (L) 07/18/2014 13.6 G/DL HEMOGLOBIN-Q (g/dL) Date Value 06/03/2018 12.5 (L) HCT (%) Date Value 12/24/2024 30.2 (L) 07/18/2014 42.3 HEMATOCRIT-Q (%) Date Value 06/03/2018 36.4 (L) CMP NA Date Value 12/24/2024 139 mmol/L 07/18/2014 141 MMOL/L SODIUM-Q (mmol/L) Date Value 06/03/2018 140 K Date Value 12/24/2024 4.0 mmol/L 07/18/2014 4.3 MMOL/L POTASSIUM-Q (mmol/L) Date Value 06/03/2018 4.3 CALCIUM Date Value 12/24/2024 9.3 mg/dL 07/18/2014 10.6 MG/DL 07/18/2014 10.6 MG/DL CALCIUM-Q (mg/dL) Date Value 06/03/2018 9.9 CL Date Value 12/24/2024 109 mmol/L (H) 07/18/2014 106 MMOL/L CHLORIDE-Q (mmol/L) Date Value 06/03/2018 105 BUN Date Value 12/24/2024 52 mg/dL (H) 07/18/2014 25 MG/DL (H) UREA NITROGEN (BUN)-Q (mg/dL) Date Value 06/03/2018 17 CREATININE Date Value 12/24/2024 2.82 mg/dL (H) 07/18/2014 1.70 MG/DL (H) CREATININE-Q (mg/dL) Date Value 06/03/2018 1.66 (H) GLUCOSE Date Value 12/24/2024 106 mg/dL 07/18/2014 94 MG/DL GLUCOSE-Q Date Value 06/03/2018 99 mg/dL 06/03/2018 NEGATIVE CO2 TOTAL Date Value 12/24/2024 18 mmol/L (L) 07/18/2014 27 MMOL/L CARBON DIOXIDE-Q (mmol/L) Date Value 06/03/2018 30 ALBUMIN Date Value 12/23/2024 3.9 g/dL 01/17/2014 3.8 G/DL T PROTEIN Date Value 12/23/2024 8.9 g/dL (H) 01/17/2014 7.9 G/DL TOTAL BILI Date Value 12/23/2024 1.3 mg/dL (H) 01/17/2014 0.6 MG/DL BILI UNCON Date Value 12/23/2024 0.6 mg/dL 01/17/2014 0.3 MG/DL BILI CONJ Date Value 12/23/2024 0.0 mg/dL 01/17/2014 0.0 MG/DL ALT(SGPT) (U/L) Date Value 10/27/2018 26 01/17/2014 39 ALTv (U/L) Date Value 12/23/2024 17 AST(SGOT) (U/L) Date Value 12/23/2024 39 01/17/2014 37 ALK PHOS (U/L) Date Value 12/23/2024 93 01/17/2014 95 COAGULATION PROTIME (SEC) Date Value 01/21/2013 12.5 PROTIME PATIENT (Seconds) Date Value 12/23/2024 13.8 (H) PT INR (no units) Date Value 01/21/2013 0.9 INR (no units) Date Value 12/23/2024 1.2 APTT MN NM (SEC) Date Value 01/21/2013 30 APTT Mean Normal (Seconds) Date Value 09/30/2014 30 APTT (SEC) Date Value 01/21/2013 28 APTT Patient (Seconds) Date Value 12/24/2024 75 (H) Radiology US Transplanted kidney Result Date: 12/23/2024 Predominantly fat density mass compressing the renal transplant from medial aspect. Possibility of a renal angiomyolipoma or retroperitoneal sarcoma is not excluded Mild hydronephrosis. Patent vasculature. Color flow pattern and doppler indices demonstrate increased renal artery RI and borderline increased segmental artery RI. No perinephric collection. Ammon Arrington MD., have reviewed this study and agree with the above report. CT Abdomen pelvis w contrast Result Date: 12/23/2024 Fat-containing perinephric transplant mass has gradually increased over multiple years with increased mass effect. The internal soft tissue density component is less well defined and slightly increased in prominence, with increased surrounding stranding. Differential includes perinephric myxoid pseudotumor of fat and low-grade liposarcoma. IR consultation for potential tissue sampling may be helpful. Mild transplant hydroureteronephrosis has increased. The transplant collecting system and ureter are stretched about the fat-containing perinephric mass and this may contribute to obstruction but suspect primary obstructive point is a ureteral anastomotic stricture. Bladder wall thickening and irregularity at the bladder dome/anastomosis could be related to cystitis or changes of chronic bladder outlet obstruction. Nonobstructing intrarenal calculi. Most recent imaging has been reviewed in PACS and plan discussed with Dr. Cabello. Pre-Procedure Sedation Evaluation See H&P for medical history and current medications. Allergies were reviewed. NPO Status Solids: >8 hours Clear liquids: >2 hours History History of anesthesia/sedation complications: No History of difficult airway: No History of neck problems, craniofacial abnormalities, head/neck surgery: No Increased risk for airway obstruction, sleep apnea, morbid obesity: No Focused Physical Exam Heart: documented in H&P Normal Lung: documented in H&P Normal Airway Mallampati: III (only soft palate and only base of uvula) Mouth opening: Normal Range of motion neck: Normal Dentition: Normal Assessment: ASA 3 Plan: Moderate sedation The risks, benefits, and treatment options of sedation were discussed with the patient/guardian and they desire to proceed. The consent form was completed and signed. 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 IR was consulted for hydronephrosis in the setting of slowly enlarging perinephric mass. - will plan for RLQ txp PCN, possible PCNU - Please keep NPO for procedure - Recommend MRI of mass w/wo contrast prior to any biopsy/intervention to further characterize. - Hold hep drip 2 hours prior - continue asa, discussed with patient higher potential bleeding risk, but unable to stop given CAD and Afib Vamsi Lopez MD, PGY 6 Interventional Radiology - Integrated Cosigned by Howard Cabello MD at 01/04/2025 4:01 PM CDT Associated attestation - Howard Cabello MD - 01/04/2025 4:01 PM CDT I personally examined the patient on 12/24/[address] Hawley's resident note as written . I actively participated in the decision-making process. Please see the resident's note for additional details. 80 min The time spent for patient care includes: PreCharting (eg, review of tests, notes, etc.), Obtaining and/or reviewing separately obtained history (Care Everywhere or paper records), Performing a medically appropriate examination and/or evaluation, Counseling and educating the patient/family/caregiver, Ordering medications, tests, or procedures, Ordering referrals and/or communicating with other health caregivers non medical (when not separately reported), Documenting clinical information in the electronic or other health record, Independently interpreting results (not separately reported) and/or communicating results to the patient/family/caregiver, Care coordination (not separately reported), and Procedure performed and time excluded from Total Time. [facility] 2024-12-23 13:10:19 Associated Order(s): CONSULT NEPHROLOGY Consultation requested by: Service: Medicine Reason for Consultation: s/p kidney transplant, KATLYN Date of Consultation: 12/23/2024 Time of Consultation: 1:15 PM History of Present Illness: Cely Myers is a 69 year old male s/p VP RESPIRATORY in 2004 who is admitted for flank pain, confusion. History obtained from patient, daughter and care everywhere chart review. Patient was at [facility] in October 2024 for a syncopal episode at home. It was attributed to low BP. Work up revealed a mass by imaging that was causing hydroureter. His serum creatinine then was 1.94. Plan was a [email or web address] transfer but was not accepted due to insurance issues. He was discharged with plans to follow up with [facility] [[email or web address] Transplant but he missed the appointment. He has significant CAD s/p CABG in 2023, PCI to RCA in 2009 and another PCI about 9 months ago. Patient is a poor historian and cannot give further history. Daughter has noted this for that past few months. Patient with a urinary catheter. Past Medical History: Diagnosis Date Abnormal SPEP [...] Jt Alejandro MD; [facility] CHOLECYSTECTOMY 09/28/2014 COLONOSCOPY N/A 10/17/2016 Surgeon: Cheri Mcintyre MD; [facility] COLONOSCOPY N/A 11/07/2020 Surgeon: Jasmyne Roper MD; Location: [facility] Location CORONARY ARTERY BYPASS GRAFT N/A 07/08/2023 Surgeon: Jt Alejandro MD; [facility] ENDOSCOPIC VEIN HARVEST (SHX) Left 07/08/2023 Surgeon: Jt Alejandro MD; [facility] LIVER BIOPSY 03/27/2004 NEPHRECTOMY 05/18/2004 Bilateral OPEN CHOLECYSTECTOMY N/A 09/28/2014 Surgeon: Ramon Landry MD; [facility]: [facility] OTHER 04/26/2005 Drainage of fluid PARATHYROIDECTOMY PERCUTANEOUS NEPHROSTOMY TUBE PLACEMENT 04/29/2005 [place] PATIENT HAS A CORONARY ARTERY STENT TRANSURETHRAL PROSTATE VAPORIZATION N/A 02/12/2019 Surgeon: Williams Ashley MD; [facility] VOIDING CYSTOURETHROGRAM 02/08/2004 XR KUB 02/07/2004, 03/08/2005, 03/24/2005 No family history on file Patient has no known allergies. Current Facility-Administered Medications: acetaminophen (TYLENOL) tablet 650 mg, 650 mg, Oral, Q6HPRN, Nigelosti, Shanika Donna, DO, 650 mg at 12/23/24 0921 allopurinoL (ZYLOPRIM) tablet 100 mg, 100 mg, Oral, DAILY, Nigelosti, Shanika Donna, DO, 100 mg at 12/23/24 0922 aspirin chewable tablet 81 mg, 81 mg, Oral, DAILY, Nigelwaester, Socorro Noor, DO, 81 mg at 12/23/24 0921 calcium carbonate (OSCAL-500) tablet 500 mg, 500 mg, Oral, DAILY, Nigelosti, Shanika Donna, DO, 500 mg at 12/23/24 0921 cefTRIAXone (ROCEPHIN) 1,000 mg in sterile water for injection 10 mL IV Push, 1,000 mg, Intravenous, Q24H ABX, Socorro Cabrales Noor, DO ezetimibe (ZETIA) tablet 10 mg, 10 mg, Oral, QAM, Nigelosti, Shanika Donna, DO, 10 mg at 12/23/24 0922 heparin (1,000 unit/mL, 10 mL vial), 3,000-5,000 unit, Slow IV Push, FOR REBOLUSING, Socorro Cabrales NoDO angy heparin 25,000 Units/250 mL (Premixed Bag) in 0.45 % NS, 0-2,800 Units/hr, IV Infusion, CONTINUOUS, Socorro Cabrales Noor, , Last Rate: 13 mL/hr at 12/23/24 1032, 1,300 Units/hr at 12/23/24 1032 mirtazapine (REMERON) tablet 7.5 mg, 7.5 mg, Oral, QHS, Khosti, Shanika Donna, DO mycophenolate (CELLCEPT) capsule 500 mg, 500 mg, Oral, Q12H, Khosti, Shanika Donna, DO pravastatin (PRAVACHOL) tablet 40 mg, 40 mg, Oral, QHS, Khosti, Shanika Donna, DO predniSONE (DELTASONE) tablet 5 mg, 5 mg, Oral, QAM, Mauricio, Shanika Thompson DO, 5 mg at 12/23/24 0921 tacrolimus (PROGRAF) capsule 5 mg, 5 mg, Oral, Q12H, Shanika Martínez DO, 5 mg at 12/23/24 1028 tamsulosin (FLOMAX) capsule 0.8 mg, 0.8 mg, Oral, QHS, Shanika Martínez DO Hospital Medications: REVIEW OF SYSTEMS Cannot be obtained accurately PHYSICAL EXAMINATION BP (!) 146/79 | Pulse 89 | Temp 36.9 ?C (98.5 ?F) | Resp 18 | Ht 1.753 m (5' 9") | Wt 85 kg (187 lb 6.3 oz) | SpO2 98% | BMI 27.67 kg/m? General: alert and oriented x 2 (person and date/time); no apparent distress HEENT: pupils equal, round, reactive to light; extraocular movements intact; oropharynx clear; moist mucous membranes Neck: supple, no lymphadenopathy, no bruits, no JVD Lungs: clear to auscultation bilaterally Cardio: S1, S2 normal; systolic murmur over the whole precordium, no rubs or gallops Abdomen: soft; non-tender; distended; tenderness on deep palpation of the RLQ, normoactive bowel sounds Extremities: no clubbing, cyanosis, or edema Skin: no rashes Neuro: no focal deficits LABORATORY CBC WBC x10 3 (/uL) Date Value 07/18/2014 5.1 WHITE BLOOD CELL COUNT-Q (Thousand/uL) Date Value 06/03/2018 5.4 WBC (10*3/?L) Date Value 12/23/2024 8.63 RBC x10 6 (/uL) Date Value 07/18/2014 4.43 RED BLOOD CELL COUNT-Q (Million/uL) Date Value 06/03/2018 3.97 (L) RBC (10*6/?L) Date Value 12/23/2024 3.91 (L) PLT x10 3 (/uL) Date Value 07/18/2014 190 PLATELET COUNT-Q (Thousand/uL) Date Value 06/03/2018 155 PLT (10*3/?L) Date Value 12/23/2024 334 (H) THB (G/DL) Date Value 05/18/2004 14.6 HGB Date Value 12/23/2024 11.2 g/dL (L) 07/18/2014 13.6 G/DL HEMOGLOBIN-Q (g/dL) Date Value 06/03/2018 12.5 (L) HCT (%) Date Value 12/23/2024 35.9 (L) 07/18/2014 42.3 HEMATOCRIT-Q (%) Date Value 06/03/2018 36.4 (L) BMP NA Date Value 12/23/2024 141 mmol/L 07/18/2014 141 MMOL/L SODIUM-Q (mmol/L) Date Value 06/03/2018 140 K Date Value 12/23/2024 4.0 mmol/L 07/18/2014 4.3 MMOL/L POTASSIUM-Q (mmol/L) Date Value 06/03/2018 4.3 CALCIUM Date Value 12/23/2024 9.8 mg/dL 07/18/2014 10.6 MG/DL 07/18/2014 10.6 MG/DL CALCIUM-Q (mg/dL) Date Value 06/03/2018 9.9 CL Date Value 12/23/2024 109 mmol/L (H) 07/18/2014 106 MMOL/L CHLORIDE-Q (mmol/L) Date Value 06/03/2018 105 BUN Date Value 12/23/2024 49 mg/dL (H) 07/18/2014 25 MG/DL (H) UREA NITROGEN (BUN)-Q (mg/dL) Date Value 06/03/2018 17 CREATININE Date Value 12/23/2024 3.84 mg/dL (H) 07/18/2014 1.70 MG/DL (H) CREATININE-Q (mg/dL) Date Value 06/03/2018 1.66 (H) GLUCOSE Date Value 12/23/2024 129 mg/dL (H) 07/18/2014 94 MG/DL GLUCOSE-Q Date Value 06/03/2018 99 mg/dL 06/03/2018 NEGATIVE CO2 TOTAL Date Value 12/23/2024 21 mmol/L (L) 07/18/2014 27 MMOL/L CARBON DIOXIDE-Q (mmol/L) Date Value 06/03/2018 30 @PTHCAINTACT@ Recent Labs 01/05/24 1620 PTHINTACT 136.1* PROTEIN (no units) Date Value 12/23/2024 300 mg/dL (A) 07/18/2014 TRACE (A) PH (no units) Date Value 12/23/2024 6.0 07/18/2014 6.0 GLU U QUAL (no units) Date Value 12/23/2024 Normal 07/18/2014 NEGATIVE KETONES (no units) Date Value 12/23/2024 Negative 07/18/2014 NEGATIVE BILIRUBIN (no units) Date Value 12/23/2024 Negative 07/18/2014 NEGATIVE BLOOD (no units) Date Value 07/18/2014 TRACE (A) UROBILIN (mg/dL) Date Value 07/18/2014 0.2 LEUK MATT (no units) Date Value 12/23/2024 500/uL (A) 07/18/2014 NEGATIVE NITRITE (no units) Date Value 12/23/2024 Negative 07/18/2014 NEGATIVE SP GRAVITY (no units) Date Value 12/23/2024 1.022 07/18/2014 1.020 RADIOLOGY: Outside CT A/P - pending results MRI A/P 11/15/2024 at - IMPRESSION: 1. Large expansile lobulated fat containing right transplant kidney mass in the region of medial aspect of the renal sinus extending to the renal hilum and medial aspect of the cortex with associated cortical thinning and has extensions as detailed, without evidence of diffusion restriction, favours replacement renal lipomatosis, however the presence of area of heterogenous enhancement on the posterior aspect of the mass adjacent to the site of arterial anastomosis with interval increase in size from 7.3 cm in maximum dimension (on prior CT report dated 04/15/2022) to 12.1 cm at present is indeterminate for malignancy. Recommendation for PET/CT evaluation/biopsy correlation. The mass is closely abutting the site of arterial anastomosis and right external iliac vessels. 2. Right hydroureteronephrosis as a result of soft tissue thickening/narrowing at the right vesicoureteric junction/distal ureter and partially effacing right ureter by the above mentioned mass. 3. Right renal transplant cortical cysts, Bosniak type I. 4. Post surgical changes of bilateral nephrectomy. 5. Minimal bibasilar subsegmental atelectasis. CT Brain from 11/10/2024 FINDINGS: There is no hemorrhage or mass [...] Chronic parenchymal volume loss and microvascular changes. ASSESSMENT and PLAN S/p VP RESPIRATORY with KATLYN, suspect related to hydroureter > continue to follow closely. Refer to Transplant surgery for further evaluation. > would consider PCN depending on surgery plans > hold off on fluids as long as patient is eating and drinking 2. UTI - treat with ceftriaxone for now pending culture 3. Immunosuppression - continue cellcept 500 mg bid, prednisone 5 mg daily and prograf 5 mg bid. Goal trough is 4-5. > please check tacrolimus trough level daily for 3 days 4. HTN - patient currently not on any medications. Naomie Doty MD, FASN [facility] [employer] 2024-11-11 16:10:33 Associated Order(s): IP CONSULT TO [...] Dr. Montalvo. Kalyn Islas M.D. Transplant Nephrology [facility] 2024-11-11 14:51:08 Images from the original note were not included. NEUROLOGIC CONSULTATION Name Of Patient: Cely Myers REFERRING PHYSICIAN: KAI Auguste MD Admission Date: 11/09/2024 Length of Stay: 2 Days Neurologic Consultation Date: 11/11/2024 Date of Service: 11/11/24 CSN: [id number] REASON FOR CONSULTATION: Syncope Subjective HISTORY OF PRESENT ILLNESS: Cely Myers is a very pleasant 69-year-old, right-handed, -[place] gentleman whose past medical history is significant [...] 2024. He believes he was hospitalized at [facility]. When I mention to him that his [...] stroke he may have been hospitalized at [facility] [email or web address] in [place]. REVIEW OF SYMPTOMS: Review of Systems Constitutional: Negative. HENT: Negative. Eyes: Negative. Respiratory: Negative. Cardiovascular: Negative. Gastrointestinal: Negative. Endocrine: Negative. Genitourinary: Negative. Musculoskeletal: Negative. Skin: Negative. Allergic/Immunologic: Negative. Neurological: Positive for dizziness, syncope and light-headedness. Negative for tremors, seizures, facial asymmetry, speech difficulty, weakness, numbness and headaches. Hematological: Negative. Psychiatric/Behavioral: Negative. PAST SURGICAL HISTORY: CABG x 3 on July 08, 2023 at [facility] [[email or web address]] (per medical record) patient did not remember the number of vessels or the exact timeframe. Renal transplant 2004 (unknown side, medical records suggest right from [facility] [[email or web address]). AV fistula in the left arm x many. Status post RCA PCI 2009. Open cholecystectomy. Parathyroidectomy. Liver biopsy. MEDICAL PROBLEM LIST: Strokes x 2. Last 03/2024: Not sure symptoms. Not hospitalized. First: Medical records report 2019. Didn't know it. Second one [facility] ([facility]). Hypertension. Hyperlipidemia. Prediabetes. Coronary artery disease. [...] Allergies SOCIAL HISTORY: . 2 children. [facility]: [facility]. FAMILY HISTORY: No known diseases in family, but records from [facility] [email or web address] suggest otherwise. Brother has hypertension and coronary [...] "PT", "INR" No results found for: "TSH", "M5WWWFT", "O3POLLR" No results found for: "RPR" No results found for: "HIV1X2" No results found for: "KRYSTLE", "RF", "ESR" No results found for: "SMMUSCABTIT", "SMMUSCABSCR", "ACTINSMMUSAB", "MITOAB" No results found for: "PT" No results found for: "PTT" No results found for: "YDVCFTEV79" No results found for: "FOLATE", "FOLATERBC" RELEVANT [...] of last year (2023) and hospitalized as [facility]. 3. Cerebral microvascular ischemic disease. DISCUSSION: [...] note may have been created using the popexpert voice-recognition transcribing system. Typographical errors and incorrect words or phrases may have been missed during proofreading. Please interpret accordingly. [facility] 2023-07-11 11:32:00 Associated Order(s): CONSULT ADULT OCCUPATIONAL THERAPY OT GENERAL EVALUATION Consult received via Chrom[employer], EMR reviewed and evaluation completed 07/11/23. Patient [...] transfer bench, Long handled sponge, Long handled safety professional, and Sock aide PLAN OF CARE: At [...] Supervision Grooming: Supervision, washed hands with hand dual rate supervisor while sitting in bedside chair. Bathing: NT, [...] Assistance, simulated transfer from EOB>bedside chair using jean paul for support and verbal cues throughout for proper body mechanics and safety. Functional Mobility: HOB flat; supine<>sit Max Assistance x2, sit<>stand Max Assistance, ambulation <>bedside chair with Jean Paul. Patient/caregiver educated on: Adaptive equipment and ADL [...] N/A 10/17/2016 Surgeon: Cheri Mcintyre MD; [facility] COLONOSCOPY N/A 11/07/2020 Surgeon: Jasmyne Roper MD; [facility] CORONARY ARTERY BYPASS GRAFT N/A 07/08/2023 Surgeon: Jt Alejandro MD; Location[facility] ENDOSCOPIC VEIN HARVEST (SHX) Left 07/08/2023 Surgeon: Jt Alejandro MD; [facility] LIVER BIOPSY 03/27/2004 NEPHRECTOMY 05/18/2004 Bilateral OPEN CHOLECYSTECTOMY N/A 09/28/2014 Surgeon: Ramon Landry MD; [facility] OTHER 04/26/2005 Drainage of fluid PARATHYROIDECTOMY PERCUTANEOUS NEPHROSTOMY TUBE PLACEMENT 04/29/2005 [place] PATIENT HAS A CORONARY ARTERY STENT TRANSURETHRAL [...] verbalizes understanding of teaching provided. JO Woods, HAMIDA Total Timed Treatment Codes: 12 Min Total [...] to complete evaluation component. Krystian Sharma OT [facility] 2023-07-11 11:30:00 Associated Order(s): CONSULT ADULT PHYSICAL THERAPY Patient agreeable to working with physical therapy. Patient met supine. Recommend nursing staff utilize jean paul walker to safely assist patient with mobility [...] with ambulation as follows: 5 feet using jean paul walker and Moderate Assistance. Patient presenting with [...] N/A 10/17/2016 Surgeon: Cheri Mcintyre MD; Location[facility] Location COLONOSCOPY N/A 11/07/2020 Surgeon: Jasmyne Roper MD; Location: [facility] CORONARY ARTERY BYPASS GRAFT N/A 07/08/2023 Surgeon: Jt Alejandro MD; Location: [facility] ENDOSCOPIC VEIN HARVEST (SHX) Left 07/08/2023 Surgeon: Jt Alejandro MD; Location: [facility] LIVER BIOPSY 03/27/2004 NEPHRECTOMY 05/18/2004 Bilateral OPEN CHOLECYSTECTOMY N/A 09/28/2014 Surgeon: Ramon Landry MD; Location: [facility] OTHER 04/26/2005 Drainage of fluid PARATHYROIDECTOMY PERCUTANEOUS NEPHROSTOMY TUBE PLACEMENT 04/29/2005 [place] PATIENT HAS A CORONARY ARTERY STENT TRANSURETHRAL PROSTATE VAPORIZATION N/A 02/12/2019 Surgeon: Williams Ashley MD; Location: [place] Location VOIDING CYSTOURETHROGRAM 02/08/2004 XR KUB [...] Notified and Repositioning Provided COMMUNICATION Primary Language: Turkmen Able to Verbalize needs: Yes Vision:good; no [...] Treatment Time in Minutes: 29 min Brenda Cortes, PT, DPT, CSRS [facility] A physical therapy evaluation of [...] unstable and unpredictable characteristics Brenda Cortes PT [facility] 2023-07-08 10:54:23 SICU ADMIT NOTE Date of [...] angina I20.0 4. Coronary artery disease involving kasaan coronary artery of kasaan heart without angina pectoris I25.10 5. S/P CABG (coronary artery bypass graft) Z95.1 Allergies No Known Allergies Medications: Scheduled Medications aspirin, 81 mg, DAILY atorvastatin, 40 mg, QHS tacrolimus, 5 mg, Q12H allopurinoL, 100 mg, DAILY ezetimibe, 10 mg, DAILY fluticasone propionate, 1 Puff, Q12H fluticasone propionate, 2 Emmonak, DAILY mirtazapine, 7.5 mg, QHS mycophenolate, 500 [...] Ultrasound not used (Active) Site assessment Clean;Dry;Intact 07/08/23 030 Line status Saline Lock 07/08/23 0300 Line interventions None required 07/08/23299 Dressing status Clean;Dry;Intact 07/08/23299 Dressing intervention None required 07/08/23299 Reason site not rotated Anticipated discharge 07/07/232099 Peripheral IV 07/02/232044 Inferior;Proximal;Right;Ventral Arm Ultrasound not used (Active) Site assessment Clean;Dry;Intact 07/08/23299 Line status Saline Lock 07/08/230 Line interventions None required 07/08/23299 Dressing status [...] Neurology: - Pain: parasternal block pre-op, fentanyl BLOCK SAWYER: 10 mcg bolus, lockout time 7 mins, [...] Monitor electrolytes and replace as needed - Fritz in place, monitor UOP Endocrinology: - Monitor [...] see the resident's note for additional details. [facility] 2023-07-05 10:23:46 Associated Order(s): CONSULT CARDIOTHORACIC SURGERY [...] fluticasone propionate 50 mcg/actuation nasal spray 2 Emmonak 2 Emmonak Nasal DAILY 2 Emmonak at 07/05/23 0900 furosemide (LASIX) tablet 20 [...] 5 mg Oral BID 5 mg at 07/05/23827 mirtazapine (REMERON) tablet 7.5 mg 7.5 mg [...] 1 g Oral QID 1 g at 07/05/2328 tamsulosin (FLOMAX) capsule 0.8 mg 0.8 mg [...] N/A 10/17/2016 Surgeon: Cheri Mcintyre MD; Location: [facility] OR Location COLONOSCOPY N/A 11/07/2020 Surgeon: Jasmyne Roper MD; Location: [facility] OR Location LIVER BIOPSY 03/27/2004 NEPHRECTOMY 05/18/2004 Bilateral OPEN CHOLECYSTECTOMY N/A 09/28/2014 Surgeon: Ramon Landry MD; Location: [facility] OTHER 04/26/2005 Drainage of fluid PARATHYROIDECTOMY PERCUTANEOUS NEPHROSTOMY TUBE PLACEMENT 04/29/2005 [place] PATIENT HAS A CORONARY ARTERY STENT TRANSURETHRAL PROSTATE VAPORIZATION N/A 02/12/2019 Surgeon: Williams Ashley MD; Location: [place] [facility] Location VOIDING CYSTOURETHROGRAM 02/08/2004 XR KUB [...] CABG. Have scheduled for Friday this week. [facility] 2023-07-03 16:39:50 Associated Order(s): CONSULT NEPHROLOGY [...] N/A 10/17/2016 Surgeon: Cheri Mcintyre MD; Location: [facility] Location COLONOSCOPY N/A 11/07/2020 Surgeon: Jasmyne Roper MD; Location: [facility] Location LIVER BIOPSY 03/27/2004 NEPHRECTOMY 05/18/2004 Bilateral OPEN CHOLECYSTECTOMY N/A 09/28/2014 Surgeon: Ramon Landry MD; Location: [facility] OTHER 04/26/2005 Drainage of fluid PARATHYROIDECTOMY PERCUTANEOUS NEPHROSTOMY TUBE PLACEMENT 04/29/2005 [place] PATIENT HAS A CORONARY ARTERY STENT TRANSURETHRAL PROSTATE VAPORIZATION N/A 02/12/2019 Surgeon: Williams Ashley MD; Location: [place] Location VOIDING CYSTOURETHROGRAM 02/08/2004 XR KUB [...] capsule 5 mg, 5 mg, Oral, Q12H, Sidiq, Capo Mohinder, acetaminophen (TYLENOL) tablet 650 mg, 650 mg, [...] fluticasone propionate 50 mcg/actuation nasal spray 2 Emmonak, 2 Emmonak, Nasal, DAILY, Padmaja Palomares MD, 2 Emmonak at 07/03/23 1352 furosemide (LASIX) tablet 20 [...] Padmaja Palomares MD, 5 mg at 07/03/23 0923 mirtazapine (REMERON) tablet 7.5 mg, 7.5 mg, Oral, QHS, Padmaja Palomares MD mycophenolate (CELLCEPT) capsule 500 mg, 500 mg, Oral, Q12H, Padmaja Palomares MD, 500 mg at 07/03/23 0923 nitroglycerin (NITROSTAT) sublingual tablet 0.4 mg, 0.4 mg, Sublingual, Q5MIN PRN, Padmaja Palomares MD pantoprazole (PROTONIX) EC tablet 40 mg, 40 mg, Oral, DAILY, Padmaja Palomares MD, 40 mg at 07/03/23 0923 predniSONE (DELTASONE) tablet 5 mg, 5 mg, Oral, DAILY, Padmaja Palomares MD, 5 mg at 07/03/23 0923 sennosides-docusate sodium (SENOKOT-S) 8.6-50 mg per tablet [...] maintenance immunosuppression after a kidney transplant. S/p VP RESPIRATORY - kidney function at baseline. Immunosuppression - [...] cath (1 ml/kg/hour). Naomie Doty MD, FASN [facility] - Health History and Physical Notes Date/Time Note Provider Source 2024-12-31 10:48:26 VASCULAR AND INTERVENTIONAL RADIOLOGY H&P NOTE HPI: 69 year old year old male with history of transplanted kidney mass presents for Image guided Renal mass biopsy. Past Medical History: Past Medical History: Diagnosis Date Abnormal SPEP [...] 12/31/2016 Severe obstructive sleep apnea Syphilis 09/11/2016 Surgical History: Past Surgical History: Procedure Laterality Date ARTERIOVENOUS FISTULA CREATION left upper extremity BIOPSY OF KIDNEY,PERCUTANEOUS 03/18/2005, 03/22/2005 CADAVERIC KIDNEY TRANSPLANT RECIPIENT Bilateral 03/08/2005 CHEST EXPLORATION N/A 07/08/2023 Surgeon: Jt Alejandro MD; Location[facility] CHOLECYSTECTOMY 09/28/2014 COLONOSCOPY N/A 10/17/2016 Surgeon: Cheri Mcintyre MD; Location[facility] Location COLONOSCOPY N/A 11/07/2020 Surgeon: Jasmyne Roper MD; Location: [facility] Location CORONARY ARTERY BYPASS GRAFT N/A 07/08/2023 Surgeon: Jt Alejandro MD; Location: [facility] ENDOSCOPIC VEIN HARVEST (SHX) Left 07/08/2023 Surgeon: Jt Alejandro MD; Location: [facility] LIVER BIOPSY 03/27/2004 NEPHRECTOMY 05/18/2004 Bilateral OPEN CHOLECYSTECTOMY N/A 09/28/2014 Surgeon: Ramon Landry MD; Location: [facility] OTHER 04/26/2005 Drainage of fluid PARATHYROIDECTOMY PERCUTANEOUS NEPHROSTOMY TUBE PLACEMENT 04/29/2005 [place] PATIENT HAS A CORONARY ARTERY STENT TRANSURETHRAL PROSTATE VAPORIZATION N/A 02/12/2019 Surgeon: Williams Ashley MD; Location[facility] VOIDING CYSTOURETHROGRAM 02/08/2004 XR KUB 02/07/2004, 03/08/2005, 03/24/2005 Meds: No current facility-administered medications on file prior to encounter. Current Outpatient Medications on File Prior to Encounter Medication Sig Dispense Refill fluticasone propionate 50 mcg/actuation nasal spray Use 1 Emmonak in each nostril in the morning. 16 g 2 PREDNISONE 5 mg tablet TAKE 1 TABLET BY MOUTH EVERY DAY IN THE MORNING 90 tablet 3 mycophenolate 250 mg capsule Take 2 capsules by mouth in the morning and 2 capsules in the evening. OR PER TRANSPLANT DOCTOR. Z 94.0 Kidney transplant Generic permitted Indications: z94.0 kidney transplant 360 capsule 3 tacrolimus 1 mg capsule Take 5 capsules by mouth in the morning and 5 capsules in the evening. 900 capsule 3 dupilumab (DUPIXENT PEN) 300 mg/2 mL PnIj inject 1 Pen under the skin every 14 (fourteen) days. 2 Pen 11 ergocalciferol, vitamin d2, 1,250 mcg (50,000 unit) capsule Take 1 capsule by mouth weekly. 26 capsule 1 allopurinoL 100 mg tablet Take 1 tablet by mouth in the morning. 90 tablet 1 amLODIPine 10 mg tablet Take 1 tablet by mouth in the morning. 90 tablet 1 Magnesium 250 mg Tab Take 1 tablet by mouth in the morning. 90 tablet 1 mirtazapine 7.5 mg tablet Take 1 tablet by mouth at bedtime. 90 tablet 1 pravastatin 40 mg tablet Take 1 tablet by mouth at bedtime. 90 tablet 1 tamsulosin 0.4 mg 24 hr capsule Take 2 capsules by mouth at bedtime. 180 capsule 1 EZETIMIBE 10 mg tablet TAKE 1 TABLET BY MOUTH EVERY DAY IN THE MORNING 90 tablet 1 ticagrelor 90 mg tablet Take 1 tablet by mouth in the morning and 1 tablet in the evening. triamcinolone acetonide 0.1 % cream Apply to area(s) 2 (two) times daily as needed for Dermatitis/Rash. 80 g 2 fluocinonide 0.05 % cream Apply to area(s) 2 (two) times daily. 60 g 3 Allergies: No Known Allergies Review of systems: A 10-point ROS was performed and is negative except as described above. Physical Exam: Vitals: 12/31/24 0308 12/31/24 0600 12/31/24 0803 12/31/24 1036 BP: 137/83 126/71 126/70 BP Location: Right arm Patient Position: Sitting Pulse: 88 74 71 Resp: 16 16 16 Temp: 36.9 ?C (98.4 ?F) 36.5 ?C (97.7 ?F) 37 ?C (98.6 ?F) TempSrc: Oral SpO2: 98% 100% 98% Weight: 183 lb 4.8 oz (83.1 kg) 183 lb (83 kg) Height: 5' 9" (1.753 m) PF: GENERAL: In no acute distress RESPIRATORY: breathing unlabored. Symmetrical chest expansion. ABDOMEN: not distended. Labs: Recent Labs 12/27/24 0412 12/28/24 0538 12/29/24 0556 12/30/24 0533 12/31/24 0556 WBC 6.21 6.51 6.45 6.20 6.14 HGB 7.5* 7.5* 7.9* 7.5* 8.0* HCT 23.1* 23.9* 25.0* 24.2* 24.6* MCV 88.5 90.9 91.2 92.7 91.1 PLT 354* 394* 442* 368* 443* Recent Labs 12/27/24 0412 12/28/24 0538 12/29/24 0556 12/30/24 0533 12/31/24 0556 NA 141 140 142 141 140 K 3.7 3.8 3.8 4.2 3.8 CA 9.9 9.5 10.0 10.3 10.1 CL 111* 113* 111* 111* 111* BUN 42* 34* 23 19 15 CREAT 2.42* 2.15* 1.83* 1.63* 1.56* GLU 105 109 116* 98 105 TCO2 22* 19* 21* 20* 22* Recent Labs 12/23/24 0331 ALB 3.9 TPRO 8.9* BILIT 1.3* BILIUNCON 0.6 BILICONJ 0.0 ALT 17 AST 39 ALKPHOS 93 Recent Labs 12/27/24 0412 12/28/24 0801 12/29/24 0556 12/30/24 0533 12/31/24 0556 PTINR 1.1 1.1 1.1 1.1 1.0 PTPAT 12.0 12.2 11.9 12.2 11.6 APTTPAT 31 31 29 30 27 Most recent imaging has been reviewed in PACS. A/P: 69 year old male with Transplant kidney mass. - The risks, benefits, and alternatives of the procedure were discussed with the patient, and the patient's questions were answered. - Will proceed wit Image guided Renal mass biopsy. Pre-Procedure Sedation Evaluation Allergies were reviewed. NPO Status Solids: >8 hours Clear liquids: >2 hours History History [...] motion neck: Normal Dentition: Normal Assessment: ASA 2 Plan: Moderate sedation The risks, benefits, and treatment options of sedation were discussed with the patient/guardian and they desire to proceed. The consent form was completed and signed. Cosigned by Shira Nino MD at 12/31/2024 10:53 AM CDT Associated attestation - Shira Nino MD - 12/31/2024 10:53 AM CDT I personally examined the patient on 12/[address] Perez's resident note as written. I actively participated in the decision-making process. Please see the resident's note for additional details. DIAGNOSTIC RADIOLOGY [facility] 2024-12-23 01:45:19 Images from the original note were not included. SAIMA QUIROS H&P PCP: Abner Rivera MD Date of Service: 12/23/2024 CHIEF COMPLAINT: bilateral flank pain Subjective History of Present Illness Mr. Cely Myers is a 69 year [id number] male with a history of ESRD 2/2 HTN s/p DDRT (2004) on immunosuppression, BPH s/p TURP (2018), CAD s/p CABG (2023) on DAPT, AF (CV 7, not on AC), pontine CVA (2023), HFpEF, HTN, HLD, and prediabetes (5.8%) who is presenting as a transfer from [facility] for KATLYN and decreased UOP. Patient somewhat poor historian and became more somnolent on subsequent evaluations, but reports 2 weeks of back pain which has progressively been worsening. Does not offer more history but when prompted, confirms dysuria. Also confirms nausea, vomiting, and diarrhea but states this occurred a few weeks ago. Last episode of diarrhea was 2 weeks ago and then was followed by back pain. Does confirm poor PO intake. Denies decreased urine output. This was noted at OSH when he only had 50 cc of urine in fritz bag. On chart review, patient was recently admitted to [facility] on 11/09/2024 for syncope which was thought to be due to overdiuresis. While admitted, patient complained of RLQ/kidney pain and was noted to have worsening Cr. UA was negative for UTI. Improved with IVF and holding diuresis. Has had increasing mass in the abdomen adjacent to the allograft. Renal transplant consulted surgical oncology due to c/f compression of renal artery +/- ureter. Was to have biopsy with IR. Nephrology recommended transfer to [email or web address] as this was where patient's transplant was performed, but was denied at the time due to capacity. Was discharged and recommended follow-up with outpatient nephrology for continued work-up. Patient attended this appointment but did not mention the mass and needed ongoing work-up. Plan was to have patient return to clinic to continue management/intervention. In the ED: Vitals: T 99.5, BP 128/69, RR 18 Labs: Cr 3.08 (baseline 1.7-1.8?), BUN 41, Hgb 11.3, UA +ve blood/RBC and protein 3+ Imaging: moderate R-sided hydronephrosis in transplanted kidney due to mass effect of fat-containing mass adjacent to transplant ECG: atrial fibrillation Treatment: morphine, zofran, 500 cc NS, amiodarone 150 mg x1 Patient will be admitted to [facility] medicine team for further work-up and management. REVIEW OF SYSTEMS Review of Systems Constitutional: Positive for chills and fatigue. HENT: Negative for congestion and sore throat. Respiratory: Negative for cough, chest tightness and shortness of breath. Cardiovascular: Negative for chest pain, palpitations and leg swelling. Gastrointestinal: Positive for diarrhea, nausea and vomiting. Negative for abdominal pain. Genitourinary: Positive for dysuria and flank pain. Musculoskeletal: Positive for back pain. Neurological: Negative for dizziness, light-headedness and headaches. PAST MEDICAL HISTORY Past Medical History: Diagnosis [...] Jt Alejandro MD; [facility] CHOLECYSTECTOMY 09/28/2014 COLONOSCOPY N/A 10/17/2016 Surgeon: Cheri Mcintyre MD; Location: [facility] OR Location COLONOSCOPY N/A 11/07/2020 Surgeon: Jasmyne Roper MD; Location: [facility] Location CORONARY ARTERY BYPASS GRAFT N/A 07/08/2023 Surgeon: Jt Alejandro MD; Location: [facility] ENDOSCOPIC VEIN HARVEST (SHX) Left 07/08/2023 Surgeon: Jt Alejandro MD; Location: [facility] LIVER BIOPSY 03/27/2004 NEPHRECTOMY 05/18/2004 Bilateral OPEN CHOLECYSTECTOMY N/A 09/28/2014 Surgeon: Ramon Landry MD; Location: [facility] OTHER 04/26/2005 Drainage of fluid PARATHYROIDECTOMY PERCUTANEOUS NEPHROSTOMY TUBE PLACEMENT 04/29/2005 [place] PATIENT HAS A CORONARY ARTERY STENT TRANSURETHRAL PROSTATE VAPORIZATION N/A 02/12/2019 Surgeon: Williams Ashley MD; Location: [facility] Location VOIDING CYSTOURETHROGRAM 02/08/2004 XR KUB 02/07/2004, 03/08/2005, 03/24/2005 Family History Problem Relation Age of Onset Hypertension Mother Hypertension Sister Hypertension Brother Coronary Heart Disease Brother [place] at age 45 Cancer Maternal Uncle Prostate Cancer Maternal Uncle Prostate ALLERGIES No Known Allergies MEDICATIONS No current facility-administered medications on file prior to encounter. Current Outpatient Medications on File Prior to Encounter Medication Sig Dispense Refill fluticasone propionate 50 mcg/actuation nasal spray Use 1 [place] in each nostril in the morning. 16 g 2 PREDNISONE 5 mg tablet TAKE 1 TABLET BY MOUTH EVERY DAY IN THE MORNING 90 tablet 3 furosemide 20 mg tablet Take 2 tablets by mouth every morning and evening. 180 tablet 1 mycophenolate 250 mg capsule Take 2 capsules by mouth in the morning and 2 capsules in the evening. OR PER TRANSPLANT DOCTOR. Z 94.0 Kidney transplant Generic permitted Indications: z94.0 kidney transplant 360 capsule 3 tacrolimus 1 mg capsule Take 5 capsules by mouth in the morning and 5 capsules in the evening. 900 capsule 3 minoxidiL 10 mg tablet TAKE 1/2 TABLET BY MOUTH TWICE A DAY 30 tablet 2 dupilumab (DUPIXENT PEN) 300 mg/2 mL PnIj inject 1 Pen under the skin every 14 (fourteen) days. 2 Pen 11 calcium carbonate (OYSTER SHELL CALCIUM 500) 500 mg calcium (1,250 mg) tablet Take 1 tablet by mouth in the morning. 90 tablet 1 ergocalciferol, vitamin d2, 1,250 mcg (50,000 unit) capsule Take 1 capsule by mouth weekly. 26 capsule 1 allopurinoL 100 mg tablet Take 1 tablet by mouth in the morning. 90 tablet 1 amLODIPine 10 mg tablet Take 1 tablet by mouth in the morning. 90 tablet 1 labetaloL 200 mg tablet Take 2 tablets by mouth every 12 (twelve) hours. 360 tablet 1 lisinopriL 5 mg tablet Take 1 tablet by mouth every morning. 90 tablet 1 Magnesium 250 mg Tab Take 1 tablet by mouth in the morning. 90 tablet 1 mirtazapine 7.5 mg tablet Take 1 tablet by mouth at bedtime. 90 tablet 1 pravastatin 40 mg tablet Take 1 tablet by mouth at bedtime. 90 tablet 1 sucralfate 1 gram tablet TAKE 1 TABLET BY MOUTH FOUR TIMES A DAY 360 tablet 1 tamsulosin 0.4 mg 24 hr capsule Take 2 capsules by mouth at bedtime. 180 capsule 1 EZETIMIBE 10 mg tablet TAKE 1 TABLET BY MOUTH EVERY DAY IN THE MORNING 90 tablet 1 ticagrelor 90 mg tablet Take 1 tablet by mouth in the morning and 1 tablet in the evening. triamcinolone acetonide 0.1 % cream Apply to area(s) 2 (two) times daily as needed for Dermatitis/Rash. 80 g 2 fluocinonide 0.05 % cream Apply to area(s) 2 (two) times daily. 60 g 3 SOCIAL HISTORY Social History Socioeconomic History Marital status: Number of children: 2 Years of education: 12 Highest education level: Bachelor's degree (e.g., BA, AB, BS) Occupational History Occupation: retired Tobacco Use Smoking status: Former Current packs/day: 0.50 Types: Cigarettes Smokeless tobacco: Never Tobacco comments: Denies. Former smoker , 0.5 ppd Quit 6 yrs ago Substance and Sexual Activity Alcohol use: No Comment: social drinker, no etoh after transplant Social History Narrative Lives home alone Social Drivers of Health Financial Resource Strain: High Risk (01/21/2024) Overall Financial Resource Strain (CARDIA) Difficulty of Paying Living Expenses: Hard Food Insecurity: Food Insecurity Present (01/21/2024) Hunger Vital Sign Worried About Running Out of Food in the Last Year: Never true Ran Out of Food in the Last Year: Sometimes true Transportation Needs: Unmet Transportation Needs (01/21/2024) PRAPARE - Transportation Lack of Transportation (Medical): Yes Lack of Transportation (Non-Medical): No Physical Activity: Insufficiently Active (01/21/2024) Exercise Vital Sign Days of Exercise per Week: 2 days Minutes of Exercise per Session: 10 min Social Connections: Unknown (07/03/2023) Social Connection and Isolation Panel [NHANES] Frequency of Communication with Friends and Family: More than three times a week Marital Status: Housing Stability: High Risk (01/21/2024) Housing Stability Vital Sign Unable to Pay for Housing in the Last Year: Yes Number of Places Lived in the Last Year: 1 Unstable Housing in the Last Year: No Objective PHYSICAL EXAMINATION There were no vitals filed for this visit. Physical Exam Vitals reviewed. Constitutional: General: He is not in acute distress. HENT: Head: Normocephalic and atraumatic. Mouth/Throat: Mouth: Mucous membranes are dry. Cardiovascular: Rate and Rhythm: Normal rate. Rhythm irregular. Pulmonary: Effort: Pulmonary effort is normal. No respiratory distress. Breath sounds: Normal breath sounds. Abdominal: Palpations: Abdomen is soft. Tenderness: There is abdominal tenderness (RLQ). Skin: General: Skin is warm and dry. Neurological: General: No focal deficit present. Comments: Oriented x1, somnolent LABS/IMAGING - reviewed EKG: CHART REVIEW: pertinent information as below: Transplant clinic : 1. Kidney Allograft function: - Serum creatinine was 1.9 on 11/08/24. Allograft function is stable. He has several class II DSAs on 10/15/24. ddcfDNA 0.5. Proteinuria 4.1 2. Immunosuppression: -Tacrolimus level was < 3 on 11/08/24 - continue current regimen: Cellcept 500 mg BID, Tacrolimus 5 mg BID, Prednisone 5 mg QD. Pt is concerned about cost. He qualified for payment assistance for cellcept and tacrolimus. 3. Blood Pressure - High BP. Will closely monitor. Pt is on amlodipine 10mg daily, labetalol 200mg twice a day, lisinopril 5mg daily, minoxidil 5mg twice a day. Pt is on Lasix 20mg twice a day. Will increase to 40mg twice a day. 4. Anemia - HB was 11.8 5. Immune prophylaxis for CMV and PCP: Per standard 6. Immune monitoring: HLA DSA, ddcf-DNA, BK plasma PCR per protocol. BK and CMV PCR negative on 10/15/24 7. Cancer Screening: After the patient left the clinic, it was brought to my attention that he had also been following up at [facility] in the [facility], where sequential imaging of his kidney allograft were done and showing increase in size of a mass either within the allograft or adjacent to it. Patient made no mention of this mass at the time of his visit with me today. Discussed this with our transplant surgeon Dr. Hu so I just said that it was brought to my attention that he does not review her right hip, who is arranging to bring the patient back to our clinic to ensure that he has proper follow-up of this mass. EXAM: MR ABDOMEN AND PELVIS WITH AND WITHOUT CONTRAST ([facility] in the [facility] ) DATE: 11/15/2024 8:10 Right transplant kidney: * Approximately 12.1 x 8.4 x 7.6 cm (CC x TR x AP) T1 and T2 intermediate hyperintense area, with suppression on T1 fat saturated image (901a/70), and interspersed loss of signal on out of phase T1 sequence (1401a/24) insinuating from the renal sinus with associated adjacent cortical thinning and extending caudally adjacent to the renal pelvis and mid to distal ureter without evidence of restricted diffusion. Soft tissue mass was also mentioned on prior CT dated 04/15/2022 when it measured up to 7.3 x 3.3 x 3.3 cm (CC x TR x AP), however images are not available in [facility] for comparison study. Mass effect is seen in the form of the partial effacement of the renal pelvis and visualized part of the ureter, with small area of heterogeneous enhancement in the portal venous and delayed phases on the posterior aspect of the mass closely abutting the site of arterial anastomosis (1803/54, 2301/87, 2201a/60) and right external iliac vessels. LABS: Delegation Orders for routine labs for next visit signed. Labs ordered and personally reviewed by me for the above problems: CBC, BMP, Phosphorous, CMV, BK, DSA, dd-cfDNA, and drug level. RTC in 6 months Labs next week and then every 2 months and prior to visit Hospital admission 11/09/2024: Assessment & Plan Syncope and collapse -EKG [...] f/u recs from neuro. Paroxysmal A-fib (CMS/HCC) ([facility]) - Reported history of Afib, though per [facility] [email or web address]] records no documented history of LAAL - Start heparin drip - Will need 30d event monitor and eliquis on discharge. -donor kidney transplant KATLYN (acute kidney injury) ([facility]) - Cr 2.26 at presentation, baseline 1.79 [...] recs. Results pending. - Follow up with [facility] [[email or web address]] Renal Transplant on discharge (has appointment in [...] holding minoxidil due to continued soft bps. Assessment & Plan Cely Myers is a 69 year old male with PMH as listed above, admitted to the hospital with: Acute kidney injury, pre-renal ESRD 2/2 HTN s/p kidney transplant (2004) on immunosuppression Fat-containing mass adjacent to renal allograft Moderate right-sided hydronephrosis 2/2 above? Anemia of chronic disease BPH Patient with 2 weeks of worsening back pain R>L w/ associated chills. Also N/V/D and decreased PO intake. UA -ve for infection. No fever or leukocytosis. KATLYN likely multifactoral in setting of decreased intake and mass likely compressing renal artery. - Renal US w doppler - UA, urine studies - Consult transplant nephrology - Surgical oncology consult + IR for biopsy - 1L LR bolus - Trend BMP, monitor UOP, monitor lytes - C/w Cellcept 500 BID - C/w tacrolimus 5 mg BID - F/u tac level - C/w prednisone 5 mg qam - C/w calcium carbonate 1250 mg qd - C/w sodium bicarb 650 mg BID - C/w tamsulosin 0.8 mg qhs Paroxysmal atrial fibrillation with RVR (CV 7) CAD s/p CABG (06/2023) HFpEF Resistant hypertension Dyslipidemia Prediabetes (A1c 5.8% 10/2024) Has h/o of AF, managed previously with metoprolol and digoxin. Does not appear to be on these anymore. No AC. CABG appears to have been done in 06/2023, but patient states revision/further intervention 6 months ago? Continues to be on DAPT. Developed AF w RVR at OSH. Given amiodarone 150 mg. Currently rate-controlled. Denies CP or SOB. H/o resistant HTN likely related to mass effect to renal artery. Holding antiHTNives in setting of hypotension which may have been precipitated by decreased PO. Monitor volume status. - Monitor BP - Telemetry - ASA 81 mg qd - Brillinta 90 mg BID - C/w pravastatin 40 mg qhs - C/w ezetimibe 10 mg qd - Hold lasix 20 mg BID - Hold lisinopril 5 mg qd - Hold labetalol 400 mg q12h - Hold amlodipine 10 mg qd Other chronic conditions: Gout Vitamin D deficiency GERD Anxiety Depression ANG - C/w allopurinol 100 mg qd - C/w mirtazapine 7.5 mg qhs Pain ImprovedTylenol Prophylaxis: DVT- heparin Stress Ulcer: no indication for prophylaxis Bowel Regimen: none Code Status: Full Code Shanika Martínez D.O. Internal Medicine, PGY-2 [facility] Team Cosigned by Ana Poon DO at 12/23/2024 8:16 AM CDT Associated attestation - Ana Poon DO - 12/23/2024 8:16 AM CDT I personally examined the patient on the date of service and agree with Dr. Martínez's resident note as written. I actively participated in the decision-making process. Please see the resident's note for additional details. Ana Poon DO Staff Rn | Department of Internal Medicine [facility] 2024-11-12 08:17:33 [facility] Progress Note Referring Provider: No ref. provider [...] the emergency room. Initially attempted transfer to [facility] [email or web address]] in [place] where patient underwent a renal transplant in [...] kg/m? I/O last 3 completed shifts: In: 1880 (21.5 mL/kg) [P.O.:1880] Out: 244 (2.8 mL/kg) [...] discharge - Neurology consulted Paroxysmal A-fib (CMS/HCC) ([facility]) - Reported history of Afib, though per [facility] [email or web address] records no documented history of LAAL - Start heparin drip -donor kidney transplant KATLYN (acute kidney injury) ([facility]) - Cr 2.26 at presentation, baseline 1.79 - Discussed with Renal Transplant. Continue home tacrolimus 5/5, MMF, and prednisone 5 mg daily - Hold diuretics for now - Follow up with [facility] [[email or web address]] Renal Transplant on discharge (has appointment in [...] as noted above - hx of PCI ? - unclear why he is on brilinta therapy ESRD s/p renal transplant 2004 - at [facility] [[email or web address]] - recent increase in lasix to 40mg, BID. Hold diuretics. - immunosuppression per the renal team KATLYN - likely due to pre-renal. - baseline Cr around 1.8 HTN - on amlodipine 10mg, qday, labetalol 200mg, BID, minxoidil 5mg, BID and lisinopril 5mg, qday. Old lacunar infarcts Borderline dilated ascending aorta 40mm Pulmonary HTN Hx of Afib/flutter - need records from [facility] [[email or web address]] on why patient not on AC? Kenn Rendon MD This is a progress note and not an H and P [facility] 2024-11-11 07:53:20 [facility] Referring Provider: No ref. provider [...] the emergency room. Initially attempted transfer to [facility] [[email or web address]] in [place] where patient underwent a renal transplant in [...] diuretics for now - Follow up with [facility] [[email or web address]] Renal Transplant on discharge (has appointment in [...] as noted above - hx of PCI ? - unclear why he is on brilinta therapy ESRD s/p renal transplant 2004 - at [facility] [[email or web address]] - recent increase in lasix to 40mg, BID. Hold diuretics. - immunosuppression per the renal team KATLYN - likely due to pre-renal. - baseline Cr around 1.8 HTN - on amlodipine 10mg, qday, labetalol 200mg, BID, minxoidil 5mg, BID and lisinopril 5mg, qday. Old lacunar infarcts Borderline dilated ascending aorta 40mm Pulmonary HTN Hx of Afib/flutter - need records from [facility] [[email or web address]] on why patient not on AC? Kenn Rendon MD [facility] 2024-11-10 02:27:39 [facility] History & Physical Referring [...] the emergency room. Initially attempted transfer to [facility] [[email or web address]] in [place] where patient underwent a renal transplant in [...] Cooper Augustin MD Cardiovascular Disease Fellow, PGY-4 [facility] | [place] Cosigned by Sara Live MD at 11/10/2024 [...] kidney transplant KATLYN (acute kidney injury) (HCC) TTE reviewed Volume depleted Small LV cavity Hold diuretics for now BP control Hold ZHEN KATLYN resolving Total face to face time 75 minutes, with > 50% spent counseling regarding diagnosis, risk and benefits of various treatment plans and expected outcomes and coordinating care. Please excuse any typographical errors, documentation prepared using electronic dictation software and may contain unintended word substitutions. [facility] 2024-08-03 16:00:00 New Medication/Lab Result Vitamin D [...] tablet; Refill: 1 Abner Rivera MD, MPH Manager Education Staff Rn, Department of Family Medicine [facility]- [place] 08/04/2024 11:58 AM Future Appointments In 2 weeks Ashwin Weir MD [facility] Dermatology, [place] [facility], Multi In 2 months Lab, [facility], [facility], [place] B[facility] In 2 months Transplant, Kidney Medicine [facility] Transplant Services, [place] [facility], Multi In 3 months Tomeka Hoyos MD [facility] Cardiology, [facility] In 6 months Abner Rivera MD [facility], [facility] 2023-07-04 16:00:55 Cardiac Cath Pre-Procedure Sedation Evaluation [...] Case discussed with Dr. Mukesh Cartagena Pager #[phone] Associated attestation - Venita Mayorga MD - 07/07/2023 3:51 PM CDT Agree IM-CARDIOVASCULAR DISEASE [facility] 2023-07-02 21:15:30 [facility] Team Admit H&P Date [...] N/A 10/17/2016 Surgeon: Cheri Mcintyre MD; Location: [facility] OR [facility] COLONOSCOPY N/A 11/07/2020 Surgeon: Jasmyne Roper MD; Location: [facility] OR Location LIVER BIOPSY 03/27/2004 NEPHRECTOMY 05/18/2004 Bilateral OPEN CHOLECYSTECTOMY N/A 09/28/2014 Surgeon: Ramon Landry MD; Location: [facility] LOCATION OTHER 04/26/2005 Drainage of fluid PARATHYROIDECTOMY PERCUTANEOUS NEPHROSTOMY TUBE PLACEMENT 04/29/2005 [place] PATIENT HAS A CORONARY ARTERY STENT TRANSURETHRAL [...] MD Department of Internal Medicine 07/02/2023 21:37 H CASHIER Associated attestation - Venita Mayorga MD - 07/04/2023 9:20 PM BOOTH CASHIER I personally examined the patient on the date of service as stated and agree with Dr. Palomares's resident note . I actively participated in the decision-making process. Please see the resident's note for additional details. [facility] [employer] Procedure Notes Date/Time Note Provider Source 2025-01-06 10:09:07 VASCULAR AND INTERVENTIONAL RADIOLOGY PROCEDURE NOTE Pre-procedure diagnosis: DDKT with suspected ureteral stricture Post-procedure diagnosis: DDKT with distal ureteral stricture Procedure: 1. Antegrade nephrostogram 2. Balloon dilation of distal ureter with 4mm and 5mm mustang balloon 3. Conversion from PCN to PCNU with placement of 10Fr, 22cm PCNU. Findings: antegrade nephrostogram with severe stricture of the distal ureter near the anastomosis. Successful balloon dilation of the ureteral structure. Successful placement of 10Fr, 22cm PCNU. Complications: none Condition: stable Estimated blood loss: minimal. Post-Procedure Sedation Addendum Immediately prior to start of sedation, the patient was evaluated and there was no change from the pre-procedure evaluation. I was present and directed medical care. The patient underwent moderate sedation for the procedure. The medications administered were recorded in the MAR; oxygenation, ventilation and circulation were monitored continuously and were recorded in the EMR. I evaluated the patient after the procedure. The patient was evaluated immediately as recovering from sedation. Complications: none Full dictated note to follow in PACS. Vamsi Lopez MD, PGY 6 Interventional Radiology - Integrated Cosigned by Jose Hudson MD at 01/06/2025 10:43 AM CDT Associated attestation - Jose Hudson MD - 01/06/2025 10:43 AM CDT I, Dr. Jose Hudson, have reviewed and agree with the resident's note. [facility] 2024-12-31 12:47:55 VASCULAR AND INTERVENTIONAL RADIOLOGY PROCEDURE NOTE Pre-procedure diagnosis: perinephric mass Post-procedure diagnosis: same Procedure: image guided perinephric mass biopsy Findings: successful 6x 18g Core biopsy and 2x22g FNA of perinephric mass compressing transplant kidney. Post operative imaging without hemorrhage Complications: none Condition: stable Estimated blood loss: minimal. Post-Procedure Sedation Addendum Immediately prior to start of sedation, the patient was evaluated and there was no change from the pre-procedure evaluation. I was present and directed medical care. The patient underwent moderate sedation for the procedure. The medications administered were recorded in the MAR; oxygenation, ventilation and circulation were monitored continuously and were recorded in the EMR. I evaluated the patient after the procedure. The patient was evaluated immediately as recovering from sedation. Complications: none Full dictated note to follow in PACS. Vamsi Lopez MD, PGY 6 Interventional Radiology - Integrated Cosigned by Shira Nino MD at 12/31/2024 2:44 PM CDT Associated attestation - Shira Nino MD - 12/31/2024 2:44 PM CDT I, Dr. Shira Nino, have reviewed and agree with the resident's note. CT-guided RLQ transplant renal/perinephric mass. FNA and cores obtained. [facility] 2024-12-25 14:09:36 VASCULAR AND INTERVENTIONAL RADIOLOGY PROCEDURE NOTE Pre-procedure diagnosis: dislodged PCN Post-procedure diagnosis: same Procedure: DynaCT DDKT PCN exchange Findings: DynaCT showed dislodged 8Fr PCN with surrounding hematoma. It was left in place with gel foam embolization through the tube. New 10Fr PCN placed under ultrasound guidance into an interpolar calyx. Approx 80cc sanguinous fluid aspirated. Contrast injection shows stasis with small volume clot at the expected location of the UVJ. Complications: none Condition: unchanged Estimated blood loss: <10cc Full dictated note to follow in PACS. Plan: - maintain adequate IV access - q6h cbc - monitor urine output - consider transfer to transplant surgery -flush new 10Fr PCN regularly (connected to drainage bag) - do not remove old 8Fr PCN for 3 days - would maintain fritz and irrigation protocol for now - follow up MRI of kidney mass Cosigned by Howard Cabello MD at 01/04/2025 4:53 PM CDT Associated attestation - Howard Cabello MD - 01/04/2025 4:53 PM CDT I was present for and supervised the entire procedure(s). [facility] 2024-12-24 14:13:26 VASCULAR AND INTERVENTIONAL RADIOLOGY PROCEDURE NOTE Pre-procedure diagnosis: obstructive hydronephrosis of left kidney Post-procedure diagnosis: same Procedure: image guided percutaneous nephrostomy tube placement Findings: successful placement of 8Fr PCN in the renal collecting system. No passage of urine into the urinary bladder. Hydroureter to the level of the ureteral anastomosis is seen. Complications: none Condition: stable Estimated blood loss: minimal. Post-Procedure Sedation Addendum Immediately prior to start of sedation, the patient was evaluated and there was no change from the pre-procedure evaluation. I was present and directed medical care. The patient underwent moderate sedation for the procedure. The medications administered were recorded in the MAR; oxygenation, ventilation and circulation were monitored continuously and were recorded in the EMR. I evaluated the patient after the procedure. The patient was evaluated immediately as recovering from sedation. Complications: none Full dictated note to follow in PACS. Vamsi Lopez MD, PGY 6 Interventional Radiology - Integrated Cosigned by Howard Cabello MD at 01/04/2025 4:55 PM CDT Associated attestation - Howard Cabello MD - 01/04/2025 4:55 PM CDT I was present for and supervised the entire procedure(s). [facility] 2023-07-08 08:59:57 Procedure(s): AN CHARLINE Pre-Procedure Diagnose(s): Coronary artery disease involving kasaan coronary artery of kasaan heart, unspecified whether angina present Post-Procedure Diagnose(s): Coronary artery disease involving kasaan coronary artery of kasaan heart, unspecified whether angina present Intraoperative Transesophageal [...] interpretation. Agree with above findings AN-ANESTHESIOLOGY ANESTHESIOLOGIST [facility] 2023-07-04 15:40:07 Procedure Note Date of Service: [...] Mayorga MD 07/04/2023 3:40 PM Cardiology Faculty [facility] IM-CARDIOVASCULAR DISEASE STAFF [facility] Notes Date/Time Note Provider Source 2025-01-18 16:30:24 01/18/25: spoke with sister Gallito Smith will be at 01/25/25 sx apt Oli Cleveland RN [facility] 2025-01-18 16:08:21 Mrs. Ambrose Landaverde requested a call back, stated she received a call from some one regarding Mr. Myers. Please call her back at [phone] Regla Verdin [facility] 2025-01-11 16:34:24 Returned call to patient's sister and notified of recommendations. Breann Aburto RN [facility] 2025-01-11 15:43:55 Ok to stay off of brilinta. Continue ASA 81 mg daily. [facility] 2025-01-11 14:39:17 Patient was seen today in the transplant clinic and there were some questions that arose during medication reconciliation (please see notes from transplant provider). Patient no longer lives in . Patient's sister states if patient needs to restart Brilinta then Rx will need to be sent to [facility] 2025-01-11 11:43:38 Copied from [facility] #[id number]. Topic: Clinical - Medical Advice >> Jan 11, 2025 11:42 AM Patient Beet Worker wrote: Cely Myers Pts sister is wanting to know if he should be on brilinta and also aspirin. If he should be on aspirin should it be 81 or 325 mg. She said he was in the hospital a few times so times so the meds may have came from [facility] but she is not sure. The pt has these meds at home and she doesn't want to refill without knowing from Dr Hoyos if he should be on them. Scheduled pt for next avail on 02/15 Please advise Yudy Portillo [facility] 2025-01-10 16:21:18 Pt's sister calling back to let you know he does not need any additional appt's with PCP. Keep appt on . Lisa Alegre [facility] 2025-01-10 15:46:50 Called pt sister no answer left voicemail in regards to below encounter. Returned call to see if pt is still needing to schedule a follow up appointment with PCP. Chloe Bray [facility] 2025-01-10 15:03:37 Spoke to sister and reviewed apt dates and times. Will ask surgeon about HH tomorrow at [facility] for PCNU assistance. Oli Cleveland RN [facility] 2025-01-10 13:17:45 Copied from [facility] #[id number]. Topic: Clinical - Medical Advice >> Jan 10, 2025 1:08 PM Patient Beet Worker wrote: Cely Myers Clinic Name: [facility] [id number] male / 69 year old (1955) Sister calling for an appt with Dr. Rivera. Pt was released from the hospital on Friday. Pt has tubes coming out of his stomach, He was told he needs to have a hosp follow up appt with his PCP as soon as possible. No appt available. Please call sister Ani Madrigal [facility] 2025-01-10 12:51:52 Cely Myers is a 69 year old male Shiela, pt's sister, is calling wanting to get a hold of the provider Liane. The pt was in the hospital x 3 weeks and she was the main provider taking care of him. She was told some information friday morning and then when she picked up the pt she was told completely differently. She has a lot of questions and the pt is having issues. Please call back [phone] and advise, thank you! Aarti Hinojosa [facility] 2025-01-07 09:31:46 Problem: Falls, Risk of Goal: Absence of falls Outcome: Progressing as expected Problem: Respiratory Function - Impaired Goal: Able to cough effectively Outcome: Progressing as expected Goal: Adequate oxygenation Outcome: Progressing as expected Goal: Adequate work of breathing Outcome: Progressing as expected Goal: Patent airway Outcome: Progressing as expected Problem: Discharge Planning Goal: Adequate for discharge Outcome: Progressing as expected Goal: Effective communication Outcome: Progressing as expected Problem: Cardiac Output - Decreased Goal: Cardiac output within specified parameters Outcome: Progressing as expected Goal: Absence of signs and symptoms of decreased cardiac output Outcome: Progressing as expected Mariah Harrison RN [facility] 2025-01-06 21:29:34 Problem: Falls, Risk of Goal: Absence of falls Outcome: Progressing as expected Problem: Respiratory Function - Impaired Goal: Able to cough effectively Outcome: Progressing as expected Goal: Adequate oxygenation Outcome: Progressing as expected Goal: Adequate work of breathing Outcome: Progressing as expected Goal: Patent airway Outcome: Progressing as expected Problem: Discharge Planning Goal: Adequate for discharge Outcome: Progressing as expected Goal: Effective communication Outcome: Progressing as expected Problem: Cardiac Output - Decreased Goal: Cardiac output within specified parameters Outcome: Progressing as expected Goal: Absence of signs and symptoms of decreased cardiac output Outcome: Progressing as expected Kari Bruno RN [facility] 2025-01-06 18:11:33 Problem: Falls, Risk of Goal: Absence of falls Outcome: Progressing as expected Problem: Respiratory Function - Impaired Goal: Able to cough effectively Outcome: Progressing as expected Goal: Adequate oxygenation Outcome: Progressing as expected Goal: Adequate work of breathing Outcome: Progressing as expected Goal: Patent airway Outcome: Progressing as expected Problem: Discharge Planning Goal: Adequate for discharge Outcome: Progressing as expected Goal: Effective communication Outcome: Progressing as expected Problem: Cardiac Output - Decreased Goal: Cardiac output within specified parameters Outcome: Progressing as expected Goal: Absence of signs and symptoms of decreased cardiac output Outcome: Progressing as expected Charisse Mendes RN [facility] 2025-01-05 22:43:12 Problem: Falls, Risk of Goal: Absence of falls Outcome: Progressing as expected Problem: Respiratory Function - Impaired Goal: Able to cough effectively Outcome: Progressing as expected Goal: Adequate oxygenation Outcome: Progressing as expected Goal: Adequate work of breathing Outcome: Progressing as expected Goal: Patent airway Outcome: Progressing as expected Problem: Discharge Planning Goal: Adequate for discharge Outcome: Progressing as expected Goal: Effective communication Outcome: Progressing as expected Problem: Cardiac Output - Decreased Goal: Cardiac output within specified parameters Outcome: Progressing as expected Goal: Absence of signs and symptoms of decreased cardiac output Outcome: Progressing as expected [facility] 2025-01-05 08:19:38 Problem: Falls, Risk of Goal: Absence of falls Outcome: Progressing as expected Problem: Respiratory Function - Impaired Goal: Able to cough effectively Outcome: Progressing as expected Goal: Adequate oxygenation Outcome: Progressing as expected Goal: Adequate work of breathing Outcome: Progressing as expected Goal: Patent airway Outcome: Progressing as expected Problem: Discharge Planning Goal: Adequate for discharge Outcome: Progressing as expected Goal: Effective communication Outcome: Progressing as expected Problem: Cardiac Output - Decreased Goal: Cardiac output within specified parameters Outcome: Progressing as expected Goal: Absence of signs and symptoms of decreased cardiac output Outcome: Progressing as expected [facility] 2025-01-04 21:46:22 Problem: Falls, Risk of Goal: Absence of falls 01/04/20252145 by Jazmin Lundberg RN Outcome: Progressing as expected 01/04/20252144 by Jazmin Lundberg RN Outcome: Progressing as expected Problem: Respiratory Function - Impaired Goal: Able to cough effectively 01/04/20252145 by Jazmin Lundberg RN Outcome: Progressing as expected 01/04/20252144 by Jazmin Lundberg RN Outcome: Progressing as expected Goal: Adequate oxygenation 01/04/20252145 by Jazmin Lundberg RN Outcome: Progressing as expected 01/04/20252144 by Jazmin Lundberg RN Outcome: Progressing as expected Goal: Adequate work of breathing 01/04/20252145 by Jazmin Lundberg RN Outcome: Progressing as expected 01/04/20252144 by Jazmin Lundberg RN Outcome: Progressing as expected Goal: Patent airway 01/04/20252145 by Jazmin Lundberg RN Outcome: Progressing as expected 01/04/20252144 by Jazmin Lundberg RN Outcome: Progressing as expected Problem: Discharge Planning Goal: Adequate for discharge 01/04/2025 214 by Jazmin Lundberg RN Outcome: Progressing as expected 01/04/20252144 by Jazmin Lundberg RN Outcome: Progressing as expected Goal: Effective communication 01/04/20252145 by Jazmin Lundberg RN Outcome: Progressing as expected 01/04/20252144 by Jazmin Lundberg RN Outcome: Progressing as expected Problem: Cardiac Output - Decreased Goal: Cardiac output within specified parameters 01/04/20252145 by Jazmin Lundberg RN Outcome: Progressing as expected 01/04/20252144 by Jazmin Lundberg RN Outcome: Progressing as expected Goal: Absence of signs and symptoms of decreased cardiac output 01/04/20252145 by Jazmin Lundberg RN Outcome: Progressing as expected 01/04/20252144 by Jazmin Lundberg RN Outcome: Progressing as expected Jazmin Lundberg RN [facility] 2025-01-04 09:08:20 Problem: Falls, Risk of Goal: Absence of falls Outcome: Progressing as expected Problem: Respiratory Function - Impaired Goal: Able to cough effectively Outcome: Progressing as expected Goal: Adequate oxygenation Outcome: Progressing as expected Goal: Adequate work of breathing Outcome: Progressing as expected Goal: Patent airway Outcome: Progressing as expected Problem: Discharge Planning Goal: Adequate for discharge Outcome: Progressing as expected Goal: Effective communication Outcome: Progressing as expected Problem: Cardiac Output - Decreased Goal: Cardiac output within specified parameters Outcome: Progressing as expected Goal: Absence of signs and symptoms of decreased cardiac output Outcome: Progressing as expected [facility] 2025-01-03 20:48:07 Problem: Falls, Risk of Goal: Absence of falls Outcome: Progressing as expected Problem: Respiratory Function - Impaired Goal: Able to cough effectively Outcome: Progressing as expected Goal: Adequate oxygenation Outcome: Progressing as expected Goal: Adequate work of breathing Outcome: Progressing as expected Goal: Patent airway Outcome: Progressing as expected Problem: Discharge Planning Goal: Adequate for discharge Outcome: Progressing as expected Goal: Effective communication Outcome: Progressing as expected Problem: Cardiac Output - Decreased Goal: Cardiac output within specified parameters Outcome: Progressing as expected Goal: Absence of signs and symptoms of decreased cardiac output Outcome: Progressing as expected [facility] 2025-01-03 17:12:17 Problem: Falls, Risk of Goal: Absence of falls Outcome: Progressing as expected Problem: Respiratory Function - Impaired Goal: Able to cough effectively Outcome: Progressing as expected Goal: Adequate oxygenation Outcome: Progressing as expected Goal: Adequate work of breathing Outcome: Progressing as expected Goal: Patent airway Outcome: Progressing as expected [facility] Edwige Mosley RN [facility] 2025-01-02 20:44:31 Problem: Falls, Risk of Goal: Absence of falls Outcome: Progressing as expected Problem: Respiratory Function - Impaired Goal: Able to cough effectively Outcome: Progressing as expected Goal: Adequate oxygenation Outcome: Progressing as expected Goal: Adequate work of breathing Outcome: Progressing as expected Goal: Patent airway Outcome: Progressing as expected Problem: Discharge Planning Goal: Adequate for discharge Outcome: Progressing as expected Goal: Effective communication Outcome: Progressing as expected Problem: Cardiac Output - Decreased Goal: Cardiac output within specified parameters Outcome: Progressing as expected Goal: Absence of signs and symptoms of decreased cardiac output Outcome: Progressing as expected [facility] 2025-01-02 17:05:58 Problem: Falls, Risk of Goal: Absence of falls 01/02/20251704 by Edwige Noble RN Outcome: Progressing as expected 01/02/2025700 by Edwige Noble RN Outcome: Progressing as expected Problem: Respiratory Function - Impaired Goal: Able to cough effectively 01/02/20251704 by Edwige Noble RN Outcome: Progressing as expected 01/02/2025700 by Edwige Noble RN Outcome: Progressing as expected Goal: Adequate oxygenation 01/02/20251704 by Edwige Noble RN Outcome: Progressing as expected 01/02/2025700 by Edwige Noble RN Outcome: Progressing as expected Goal: Adequate work of breathing 01/02/20251704 by Edwige Noble RN Outcome: Progressing as expected 01/02/2025700 by Edwige Noble RN Outcome: Progressing as expected Goal: Patent airway 01/02/20251704 by Edwige Noble RN Outcome: Progressing as expected 01/02/2025700 by Edwige Noble RN Outcome: Progressing as expected Problem: Discharge Planning Goal: Adequate for discharge 01/02/20251704 by Edwige Noble RN Outcome: Progressing as expected 01/02/2025700 by Edwige Noble RN Outcome: Progressing as expected Goal: Effective communication 01/02/20251704 by Edwige Noble RN Outcome: Progressing as expected 01/02/2025700 by Edwige Noble RN Outcome: Progressing as expected Problem: Cardiac Output - Decreased Goal: Cardiac output within specified parameters 01/02/20251704 by Edwige Noble RN Outcome: Progressing as expected 01/02/2025700 by Edwige Noble RN Outcome: Progressing as expected Goal: Absence of signs and symptoms of decreased cardiac output 01/02/20251704 by Edwige Noble RN Outcome: Progressing as expected 01/02/2025 0701 by Edwige Noble RN Outcome: Progressing as expected Edwige Noble RN [facility] 2025-01-02 07:01:31 Problem: Falls, Risk of Goal: Absence of falls Outcome: Progressing as expected Problem: Respiratory Function - Impaired Goal: Able to cough effectively Outcome: Progressing as expected Goal: Adequate oxygenation Outcome: Progressing as expected Goal: Adequate work of breathing Outcome: Progressing as expected Goal: Patent airway Outcome: Progressing as expected Problem: Discharge Planning Goal: Adequate for discharge Outcome: Progressing as expected Goal: Effective communication Outcome: Progressing as expected Problem: Cardiac Output - Decreased Goal: Cardiac output within specified parameters Outcome: Progressing as expected Goal: Absence of signs and symptoms of decreased cardiac output Outcome: Progressing as expected [facility] 2025-01-02 01:10:39 Problem: Falls, Risk of Goal: Absence of falls Outcome: Progressing as expected Problem: Discharge Planning Goal: Adequate for discharge Outcome: Progressing as expected Goal: Effective communication Outcome: Progressing as expected Problem: Cardiac Output - Decreased Goal: Cardiac output within specified parameters Outcome: Progressing as expected Goal: Absence of signs and symptoms of decreased cardiac output Outcome: Progressing as expected Erasmo Shaver RN [facility] 2025-01-01 18:18:35 Problem: Falls, Risk of Goal: Absence of falls Outcome: Progressing as expected Problem: Respiratory Function - Impaired Goal: Able to cough effectively Outcome: Progressing as expected Goal: Adequate oxygenation Outcome: Progressing as expected Goal: Adequate work of breathing Outcome: Progressing as expected Goal: Patent airway Outcome: Progressing as expected Problem: Discharge Planning Goal: Adequate for discharge Outcome: Progressing as expected Goal: Effective communication Outcome: Progressing as expected Problem: Cardiac Output - Decreased Goal: Cardiac output within specified parameters Outcome: Progressing as expected Goal: Absence of signs and symptoms of decreased cardiac output Outcome: Progressing as expected Maeve Powell RN [facility] 2025-01-01 00:17:42 Problem: Falls, Risk of Goal: Absence of falls Outcome: Progressing as expected Problem: Respiratory Function - Impaired Goal: Able to cough effectively Outcome: Progressing as expected Goal: Adequate work of breathing Outcome: Progressing as expected Problem: Discharge Planning Goal: Adequate for discharge Outcome: Progressing as expected Goal: Effective communication Outcome: Progressing as expected Problem: Cardiac Output - Decreased Goal: Cardiac output within specified parameters Outcome: Progressing as expected Goal: Absence of signs and symptoms of decreased cardiac output Outcome: Progressing as expected [facility] 2024-12-31 08:21:41 Problem: Falls, Risk of Goal: Absence of falls Outcome: Progressing as expected Problem: Respiratory Function - Impaired Goal: Able to cough effectively Outcome: Progressing as expected Goal: Adequate oxygenation Outcome: Progressing as expected Goal: Adequate work of breathing Outcome: Progressing as expected Goal: Patent airway Outcome: Progressing as expected Problem: Discharge Planning Goal: Adequate for discharge Outcome: Progressing as expected Goal: Effective communication Outcome: Progressing as expected Problem: Cardiac Output - Decreased Goal: Cardiac output within specified parameters Outcome: Progressing as expected Goal: Absence of signs and symptoms of decreased cardiac output Outcome: Progressing as expected Eloisa Kerr RN [facility] 2024-12-31 02:15:51 Problem: Falls, Risk of Goal: Absence of falls Outcome: Progressing as expected Problem: Respiratory Function - Impaired Goal: Able to cough effectively Outcome: Progressing as expected Goal: Adequate oxygenation Outcome: Progressing as expected Goal: Adequate work of breathing Outcome: Progressing as expected Goal: Patent airway Outcome: Progressing as expected Problem: Discharge Planning Goal: Adequate for discharge Outcome: Progressing as expected Goal: Effective communication Outcome: Progressing as expected Problem: Cardiac Output - Decreased Goal: Cardiac output within specified parameters Outcome: Progressing as expected Breonna Haley RN [facility] 2024-12-30 19:28:08 Pt up with emilee Follows commands appropriately BMx2 today Valerie Urban RN [facility] 2024-12-29 13:26:52 Problem: Falls, Risk of Goal: Absence of falls Outcome: Progressing as expected Problem: Respiratory Function - Impaired Goal: Able to cough effectively Outcome: Progressing as expected Goal: Adequate oxygenation Outcome: Progressing as expected Goal: Adequate work of breathing Outcome: Progressing as expected Goal: Patent airway Outcome: Progressing as expected Problem: Discharge Planning Goal: Adequate for discharge Outcome: Progressing as expected Goal: Effective communication Outcome: Progressing as expected Problem: Cardiac Output - Decreased Goal: Cardiac output within specified parameters Outcome: Progressing as expected Goal: Absence of signs and symptoms of decreased cardiac output Outcome: Progressing as expected Zari Ann RN [facility] 2024-12-29 03:27:04 Problem: Falls, Risk of Goal: Absence of falls Outcome: Progressing as expected Problem: Respiratory Function - Impaired Goal: Able to cough effectively Outcome: Progressing as expected Goal: Adequate work of breathing Outcome: Progressing as expected Goal: Patent airway Outcome: Progressing as expected Problem: Discharge Planning Goal: Adequate for discharge Outcome: Progressing as expected Goal: Effective communication Outcome: Progressing as expected [facility] 2024-12-28 14:09:12 Problem: Falls, Risk of Goal: Absence of falls Outcome: Progressing as expected Problem: Respiratory Function - Impaired Goal: Able to cough effectively Outcome: Progressing as expected Goal: Adequate oxygenation Outcome: Progressing as expected Goal: Adequate work of breathing Outcome: Progressing as expected Goal: Patent airway Outcome: Progressing as expected Problem: Discharge Planning Goal: Adequate for discharge Outcome: Progressing as expected Goal: Effective communication Outcome: Progressing as expected Noelle Washington RN [facility] 2024-12-28 05:10:47 Problem: Falls, Risk of Goal: Absence of falls Outcome: Progressing as expected Problem: Respiratory Function - Impaired Goal: Able to cough effectively Outcome: Progressing as expected Goal: Adequate oxygenation Outcome: Progressing as expected Goal: Adequate work of breathing Outcome: Progressing as expected Goal: Patent airway Outcome: Progressing as expected Problem: Discharge Planning Goal: Adequate for discharge Outcome: Progressing as expected Goal: Effective communication Outcome: Progressing as expected Kenya Herrera RN [facility] 2024-12-27 16:28:21 Problem: Falls, Risk of Goal: Absence of falls Outcome: Progressing as expected Problem: Respiratory Function - Impaired Goal: Able to cough effectively Outcome: Progressing as expected Goal: Adequate oxygenation Outcome: Progressing as expected Goal: Adequate work of breathing Outcome: Progressing as expected Goal: Patent airway Outcome: Progressing as expected Problem: Discharge Planning Goal: Adequate for discharge Outcome: Progressing as expected Goal: Effective communication Outcome: Progressing as expected Augie Gabriel RN [facility] 2024-12-27 05:01:00 Problem: Falls, Risk of Goal: Absence of falls Outcome: Progressing as expected Problem: Respiratory Function - Impaired Goal: Able to cough effectively Outcome: Progressing as expected Goal: Adequate oxygenation Outcome: Progressing as expected Goal: Adequate work of breathing Outcome: Progressing as expected Goal: Patent airway Outcome: Progressing as expected Problem: Discharge Planning Goal: Adequate for discharge Outcome: Progressing as expected Goal: Effective communication Outcome: Progressing as expected Contreras Sim RN [facility] 2024-12-26 19:39:26 Report given to Jamarcus FUENTES. Pt willl be transferred to 962 Dileep Lira RN [facility] 2024-12-26 19:37:39 Problem: Falls, Risk of Goal: Absence of falls Outcome: Progressing as expected Problem: Respiratory Function - Impaired Goal: Able to cough effectively Outcome: Progressing as expected Goal: Adequate oxygenation Outcome: Progressing as expected Goal: Adequate work of breathing Outcome: Progressing as expected Goal: Patent airway Outcome: Progressing as expected Problem: Discharge Planning Goal: Adequate for discharge Outcome: Progressing as expected Goal: Effective communication Outcome: Progressing as expected [facility] 2024-12-26 14:59:15 Problem: Falls, Risk of Goal: Absence of falls Outcome: Progressing as expected Problem: Respiratory Function - Impaired Goal: Able to cough effectively Outcome: Progressing as expected Goal: Adequate oxygenation Outcome: Progressing as expected Goal: Adequate work of breathing Outcome: Progressing as expected Goal: Patent airway Outcome: Progressing as expected Problem: Discharge Planning Goal: Adequate for discharge Outcome: Progressing as expected Goal: Effective communication Outcome: Progressing as expected [facility] 2024-12-26 01:03:24 Problem: Falls, Risk of Goal: Absence of falls Outcome: Progressing as expected Problem: Respiratory Function - Impaired Goal: Able to cough effectively Outcome: Progressing as expected Goal: Adequate oxygenation Outcome: Progressing as expected Goal: Adequate work of breathing Outcome: Progressing as expected Goal: Patent airway Outcome: Progressing as expected Belinda Mar RN [facility] 2024-12-25 08:42:19 Dr. Cabrales informed RN to manually irrigate patient's fritz if drainage stops. Dr. Cabrales stated to refer to the note by Urology for instructions. Patient's stopped draining and patient was becoming irritable and saying "I need to pee." RN attempted to irrigate fritz at 0815. On the first attempt, 50 cc was instilled into the catheter and only 40 cc was removed. RN made a second attempt with 50 cc and again only 40 cc could be removed. RN attempted to page primary doctors at 0828 to notify them. Urology Resident, Dr. Mckeon, came by to assess the patient and he was informed that not all the saline used to irrigate the fritz could be pulled back out. Dr. Mckeon stated not to manually irrigate the fritz any further. RN made a second attempt to page the primary team at 0841. RN spoke to Dr. Cabrales and informed her of increased patient irritation and discomfort and his new confusion. De Souza RN [facility] 2024-12-25 08:41:48 Problem: Falls, Risk of Goal: Absence of falls Outcome: Progressing as expected Problem: Respiratory Function - Impaired Goal: Able to cough effectively Outcome: Progressing as expected Goal: Adequate oxygenation Outcome: Progressing as expected Goal: Adequate work of breathing Outcome: Progressing as expected Goal: Patent airway Outcome: Progressing as expected [facility] 2024-12-24 20:28:44 Problem: Falls, Risk of Goal: Absence of falls 12/24/20242027 by Jannet Borges RN Outcome: Progressing as expected 12/24/20242027 by Jannet Borges RN Outcome: Progressing as expected Problem: Respiratory Function - Impaired Goal: Able to cough effectively 12/24/20242027 by Jannet Borges RN Outcome: Progressing as expected 12/24/20242027 by Jannet Borges RN Outcome: Progressing as expected Goal: Adequate oxygenation 12/24/20242027 by Jannet Borges RN Outcome: Progressing as expected 12/24/20242027 by Jannet Borges RN Outcome: Progressing as expected Goal: Adequate work of breathing 12/24/20242027 by Jannet Borges RN Outcome: Progressing as expected 12/24/20242027 by Jannet Borges RN Outcome: Progressing as expected Goal: Patent airway 12/24/20242027 by Jannet Borges RN Outcome: Progressing as expected 12/24/20242027 by Jannet Borges RN Outcome: Progressing as expected [facility] 2024-12-24 10:39:05 Problem: Falls, Risk of Goal: Absence of falls Outcome: Progressing as expected Problem: Respiratory Function - Impaired Goal: Able to cough effectively Outcome: Progressing as expected Goal: Adequate oxygenation Outcome: Progressing as expected Goal: Adequate work of breathing Outcome: Progressing as expected Goal: Patent airway Outcome: Progressing as expected [facility] 2024-12-24 07:53:37 Pt currently admitted - refill denied at this time - will await discharge reccs [facility] Pao Maradiaga RN [facility] 2024-12-24 01:13:39 Patient w/ sleep apnea hx. T Richie Scott RT [facility] 2024-12-23 20:05:29 Problem: Falls, Risk of Goal: Absence of falls Outcome: Progressing as expected Problem: Respiratory Function - Impaired Goal: Able to cough effectively Outcome: Progressing as expected Goal: Adequate oxygenation Outcome: Progressing as expected Goal: Adequate work of breathing Outcome: Progressing as expected Goal: Patent airway Outcome: Progressing as expected [facility] 2024-12-23 11:41:58 Problem: Falls, Risk of Goal: Absence of falls Outcome: Progressing as expected Problem: Respiratory Function - Impaired Goal: Able to cough effectively Outcome: Progressing as expected Goal: Adequate oxygenation Outcome: Progressing as expected Goal: Adequate work of breathing Outcome: Progressing as expected Goal: Patent airway Outcome: Progressing as expected Padmaja Jauregui RN [facility] 2024-12-23 05:40:00 Problem: Respiratory Function - Impaired Goal: Able to cough effectively Outcome: Progressing as expected Goal: Adequate oxygenation Outcome: Progressing as expected Goal: Adequate work of breathing Outcome: Progressing as expected Goal: Patent airway Outcome: Progressing as expected Oriana Kelley RT [facility] 2024-12-23 04:21:56 Problem: Falls, Risk of Goal: Absence of falls Outcome: Progressing as expected [facility] 2024-11-23 14:25:47 Attempted to contact patient about post appointment dated for tomorrow 11/23/24 needs to be changed/ rescheduled. Patient phone has calling restrictions. Jose Ponce [facility] 2024-11-23 11:37:19 11/23/24: records received and sent for scanning into chart Oli Cleveland RN [facility] 2024-11-23 09:01:42 Referral has been placed. Routing to [facility] for assistance in authorization. [facility] 2024-11-23 08:47:22 Patient is scheduled this morning at 9:[address] Hoyos for General Cardiology appointment, we are needing a new referral authorized by the insurance. Please advise. ELT Rina Corea [facility] Referral ID Status Reason Start Date Expiration Date Visits Re quested Visits Authorized [id number] 1 1 [id number] 17:15:03* AUDIT-C Score Answer Date of Assessment [...] PM CDT Isis Henry rd, RN * [place] Suicide Severity Rating Scale (Screener/Recent Self-Report) Question Answer Date of Assessment Author 1. Wish to be (Past 1 Month) No 11/09/2024 12:00 PM CDT French Negrete RN 2. Non-Specific Active Suici casimiro Thoughts (Past 1 Month) No 11/09/2024 12:00 PM CDT Cee Negrete RN 6. Suicidal Behavior (Lifetime) No 12:00 PM CDT Isis Negrete RN [id number] 17:15:03* Because of a physical, mental, or emotional condition, do you have serious difficulty concentrating, remembering, or making decisions? (5 years old or older) Answer Entry Date Author No 11/19/2024 3:04 PM CDT Christina Benites RN [facility] [id number] 17:15:03* Anitha Acosta RN - 11/19/2024 2:40 PM CDT Notified Dallin of [facility] [[email or web address] TC [phone] to cancel request since pt is discharging today. * Asaf Agarwal NP - 11/19/2024 10:53 AM CDT Subjective Feeling well, no new issues. Endorses ongoing RLQ mild discomfort as opposed to pain Pending plan for transfer to [facility] [[email or web address]] Objective Last Recorded Vitals Blood pressure 137/66, [...] decision was made to transfer patient to [facility] [[email or web address]] where his primary physicians are. Dr. Montalvo just spoke to Dr. Padmaja Powers from [facility] [[email or web address]] and he would like to transfer the patient for further care. The transfer had been initiated through the transfer center (their phone number is [phone]). Dr. Moses aware of plan and will take over transfer. 11/19 - Patient remains pending transfer to [facility] [[email or web address]] and transfer is currently pending/being denied by [...] home with close outpatient follow up with [facility] [[email or web address]] transplant clinic. Per coordinator, he has an appt with [facility] [[email or web address]] transplant nephrology and surgery on coming at 1 PM. Discussed with primary team. Discussed above in length with patient and answered all questions. Jatin Montalvo MDTransplant Nephrology * Anitha Acosta RN - 11/19/2024 8:34 AM CDT Followed up referral status with [facility] [[email or web address]] TC [phone] and per Dallin that still awaiting approval from payor. * Anitha Acosta RN - 11/18/2024 3:56 PM CDT Still pending financial auth at this time per Will of [facility] [[email or web address]] TC [phone] * David Hays MD - 11/18/2024 9:53 AM CDT Images from the original note were not included. NEUROLOGY PROGRESS NOTE Cely Myers Admission Date: 11/09/2024 Length of Stay: 9 Days Neurologic Consultation Date: 11/11/2024 Date of Service: 11/18/24 Reason for Consultation: Syncope NEUROLOGIC PROBLEM LIST: 1. Syncope. 2. Prior history of "strokes" x 2 with pontine stroke likely occurring at the end of last year (2023) and hospitalized as [facility]. 3. Cerebral microvascular ischemic disease. MEDICAL PROBLEM LIST: Strokes x 2. Last 03/2024: Not sure symptoms. Not hospitalized. First: Medical records report 2018. Didn't know it. Second one [facility] ([facility]). Hypertension. Hyperlipidemia. Prediabetes. Coronary artery disease. [...] x 3 on July 08, 2023 at [facility] [[email or web address]] (per medical record) patient did not remember the number of vessels or the exact timeframe. Renal transplant 2004 (unknown side, medical records suggest right from [facility] [[email or web address]). AV fistula in the left arm x many. Status post RCA PCI 2009. Open cholecystectomy. Parathyroidectomy. Liver biopsy. INTERIM: 11/13/2024: Carotid ultrasound: No hemodynamically significant disease. Subjective Currently waiting on a bed at [facility] [[email or web address]] to investigate his mass. No other focal or generalized neurologic complaints. HISTORY OF PRESENT ILLNESS: Cely Myers is a very pleasant 69-year-old, right-handed, -[place] gentleman whose past medical history is significant [...] 2024. He believes he was hospitalized at [facility]. When I mention to him that his [...] stroke he may have been hospitalized at [facility] [[email or web address]] in [place]. SCHEDULED MEDICATIONS: allopurinol, 100 mg, Oral, q [...] of last year (2023) and hospitalized as [facility]. 3. Cerebral microvascular ischemic disease. DISCUSSION:Currently waiting on a bed at [facility] [[email or web address]] to investigate his mass. No other focal or generalized neurologic complaints. RECOMMENDATION:1. No new neurologic recommendations. Discussed with team. Sections of this note may have been created using the popexpert voice-recognition transcribing system. Typographical errors and incorrect words or phrases may have been missed during proofreading. Please interpret accordingly. * Anitha Acosta RN - 11/18/2024 8:44 AM CDT CM placed a follow up call today to the # [phone] and gael Zamarripa pt is pending financial at this time. * Russel Vincent MD - 11/18/2024 8:12 AM CDT [facility] Progress Note Date: 11/18/2024 Referring Provider: No [...] the emergency room. Initially attempted transfer to [facility] [[email or web address]] in [place] where patient underwent a renal transplant in [...] mass in R kidney (known mass at [facility] [[email or web address]] but now increased in size and obstructive) infringing on renal artery, causing hydroureteronephrosis to get an idea of the next steps PET/CT vs biopsy -> plan for biopsy -> consulted IR --> renal txp Dr Montalvo discussed with primary renal txp attd about transferring to [facility] [[email or web address]] for further w/up / biopsy there-> been accepted for transfer there by Dr Padmaja Powers, pending financial clearance and bed, [place] center: [phone] - however the pt is currently on triple therapy - ASA/brilinta for a recentstent (8 months ago, unknown artery, unclear if he had ACS at [facility]) and hep gtt here for Afib (which seems to be self diagnosed, when he saw a commercial on tv and realized his Sx were the same). Stopping brilinta will give still need 5 days of washout for the effect to wear off. 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 Pt also had no recorded Afib at [facility] [[email or web address]] and was not on any AC - [...] AM, Cooper Augustin MD, 10 mg at 11/18/24 0810 [...] Nightly, Cooper Augustin MD, 40 mg at 11/17/242104 predniSONE (Deltasone) tablet 5 mg, 5 mg, [...] Nightly, Cooper Augustin MD, 0.8 mg at 11/17/245 ticagrelor (Brilinta) tablet 90 mg, 90 mg, [...] on discharge - Neurology consulted Paroxysmal A-fib ([facility]/HCC) ([facility])- Reported history of Afib, though per [facility] [[email or web address]] records no documented history of LAAL - Start heparin drip - Will need 30d event monitor on discharge. -donor kidney transplant KATLYN (acute kidney injury) ([facility]) - Cr 2.26 at presentation, baseline 1.79 [...] further renal mass workup will be at [facility] [[email or web address]] - Follow up with [facility] [[email or web address]] Renal Transplant on discharge (has appointment in [...] have seen and examined the patient with Law Enforcement Officer Dr Moses on 11/18/24. I have reviewed [...] decision was made to transfer patient to [facility] [[email or web address]] where his primary physicians are. Dr. Montalvo just spoke to Dr. Padmaja Powers from [facility] [[email or web address]] and he would like to transfer the patient for further care. ORESTES was provided with [facility] contact info. Face sheet was faxed to #[phone]. CM placed a follow up call to the TC # [phone] and was informed that pt is currently pending financial. Renal and HF team updated. Faxed 72 hrs. progress notes to #[phone] via [employer] as per ALFREDO Valverde TP coordinator's request. [...] of last year (2023) and hospitalized as [facility]. 3. Cerebral microvascular ischemic disease. MEDICAL PROBLEM LIST: Strokes x 2. Last 03/2024: Not sure symptoms. Not hospitalized. First: Medical records report 2018. Didn't know it. Second one [facility] ([facility]). Hypertension. Hyperlipidemia. Prediabetes. Coronary artery disease. [...] x 3 on July 08, 2023 at [facility] [[email or web address]] (per medical record) patient did not remember the number of vessels or the exact timeframe. Renal transplant 2004 (unknown side, medical records suggest right from [facility] [[email or web address]). AV fistula in the left arm x many. Status post RCA PCI 2009. Open cholecystectomy. Parathyroidectomy. Liver biopsy. INTERIM: 11/13/2024: Carotid ultrasound: No hemodynamically significant disease. Subjective Believes he is going to be transferred to [facility] [[email or web address]] where they can work up a problem he has had in the past. HISTORY OF PRESENT ILLNESS: Cely Myers is a very pleasant 69-year-old, right-handed, -[place] gentleman whose past medical history is significant [...] 2024. He believes he was hospitalized at [facility]. When I mention to him that his [...] stroke he may have been hospitalized at [facility] [[email or web address]] in [place]. SCHEDULED MEDICATIONS: allopurinol, 100 mg, Oral, q [...] of last year (2023) and hospitalized as [facility]. 3. Cerebral microvascular ischemic disease. DISCUSSION:Believes he is going to be transferred to [facility] [[email or web address]] where they can work up a problem he has had in the past. RECOMMENDATION:1. No new neurologic recommendations. Discussed with team. Sections of this note may have been created using the popexpert voice-recognition transcribing system. Typographical errors and incorrect words or phrases may have been missed during proofreading. Please interpret accordingly. * Russel Vincent MD - 11/17/2024 8:32 AM CDT [facility] Progress Note Date: 11/17/2024 Referring Provider: No [...] the emergency room. Initially attempted transfer to [facility] [[email or web address]] in [place] where patient underwent a renal transplant in [...] mass in R kidney (known mass at [facility] [[email or web address]] but now increased in size and obstructive) infringing on renal artery, causing hydroureteronephrosis to get an idea of the next steps PET/CT vs biopsy -> plan for biopsy -> consulted IR --> renal txp Dr Montalvo discussed with primary renal txp attd about transferring to [facility] [[email or web address]] for further w/up / biopsy there-> been accepted for transfer there by Dr Padmaja Powers, pending financial clearance and bed, tx center: [phone] - however the pt is currently on triple therapy - ASA/brilinta for a recentstent (8 months ago, unknown artery, unclear if he had ACS at [facility]) and hep gtt here for Afib (which seems to be self diagnosed, when he saw a commercial on tv and realized his Sx were the same). Stopping brilinta will give still need 5 days of washout for the effect to wear off. 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 Pt also had no recorded Afib at [facility] [[email or web address]] and was not on any AC - [...] 16.1* 19.4* -- 17.8* BUN mg/dL -- -- -- -- 31* -- 47* 53* [...] discharge - Neurology consulted Paroxysmal A-fib (CMS/HCC) ([facility])- Reported history of Afib, though per [facility] [[email or web address]] records no documented history of LAAL - Start heparin drip - Will need 30d event monitor on discharge. -donor kidney transplant KATLYN (acute kidney injury) ([facility]) - Cr 2.26 at presentation, baseline 1.79 [...] further renal mass workup will be at [facility] [[email or web address]] - Follow up with [facility] [[email or web address]] Renal Transplant on discharge (has appointment in [...] have seen and examined the patient with Law Enforcement Officer Dr Moses on 11/17/24. I have reviewed all the clinical information, lab investigations, radiographic and other imaging data. I agree with findings, assessment and plan as outlined. Treatment plan was formulated under my direct supervision. lectronically signed by Russel Vincent MD at 11/18/2024 6:14 AM CDT * Della Henleylupe Jennings, ADVANCED PRACTICE PROFESSIONAL - 11/17/2024 7:26 AM CDT Subjective Feeling [...] episode at home witnessed by friend. DDRT 2005AKI on CKD on admit. Baseline creatinine is [...] decision was made to transfer patient to [email or web address] where his primary physicians are. Dr. Montalvo just spoke to Dr. Padmaja Powers from [facility] [[email or web address]] and he would like to transfer the patient for further care. The transfer has been initiated through the transfer center (their phone number is [phone]). Dr. Moses aware of plan and will [...] discussed with Dr. Montalvo. Della Jennings APRN, [facility] Transplant Nephrology and Surgery Cosigned by Jatin [...] Myers Admission Date: 11/09/2024 Length of Stay: 7 Days Neurologic Consultation Date: 11/11/2024 Date of Service: 11/16/24 Reason for Consultation: Syncope NEUROLOGIC PROBLEM LIST: 1. Syncope. 2. Prior history of "strokes" x 2 with pontine stroke likely occurring at the end of last year (2023) and hospitalized as [facility]. 3. Cerebral microvascular ischemic disease. MEDICAL PROBLEM LIST: Strokes x 2. Last 03/2024: Not sure symptoms. Not hospitalized. First: Medical records report 2018. Didn't know it. Second one [facility] ([facility]). Hypertension. Hyperlipidemia. Prediabetes. Coronary artery disease. [...] x 3 on July 08, 2023 at [facility] [[email or web address]] (per medical record) patient did not remember the number of vessels or the exact timeframe. Renal transplant 2004 (unknown side, medical records suggest right from [facility] [[email or web address]). AV fistula in the left arm x many. Status post RCA PCI 2009. Open cholecystectomy. Parathyroidectomy. Liver biopsy. INTERIM: 11/13/2024: Carotid ultrasound: No hemodynamically significant disease. Subjective Patient believes he was going to be discharged, but they have now found a new "lesion" on his bladder, which has to be investigated. HISTORY OF PRESENT ILLNESS: Cely Myers is a very pleasant 69-year-old, right-handed, -[place] gentleman whose past medical history is significant [...] 2024. He believes he was hospitalized at [facility]. When I mention to him that his [...] stroke he may have been hospitalized at [facility] [[email or web address]] in [place]. SCHEDULED MEDICATIONS: allopurinol, 100 mg, Oral, q [...] of last year (2023) and hospitalized as [facility]. 3. Cerebral microvascular ischemic disease. DISCUSSION:Patient believes he was going to be discharged, but they have now found a new "lesion" on his bladder, which has to be investigated. RECOMMENDATION:1. No new neurologic recommendations. Discussed with team. Sections of this note may have been created using the popexpert voice-recognition transcribing system. Typographical errors and incorrect words or phrases may have been missed during proofreading. Please interpret accordingly. * Della Henleylupe Jennings NP - 11/16/2024 8:54 AM CDT [...] friend. Allograft FunctionDDRT 2005 KATLYN on CKD on admit. Baseline creatinine [...] Vincent MD - 11/16/2024 7:27 AM CDT F Progress Note Date: 11/16/2024 Referring Provider: No [...] the emergency room. Initially attempted transfer to [facility] [[email or web address]] in [place] where patient underwent a renal transplant in [...] mass in R kidney (known mass at [facility] [email or web address]] but now increased in size and obstructive) infringing on renal artery, causing hydroureteronephrosis to get an idea of the next steps PET/CT vs biopsy -> plan for biopsy -> consulted IR - however the pt is currently on triple therapy - ASA/brilinta for a recent stent (8 months ago, unknown artery, unclear if he had ACS at [facility]) and hep gtt here for Afib (which seems to be self diagnosed, when he saw a commercial on tv and realized his Sx were the same). Stopping brilinta will give still need 5 days of washout for the effect to wear off. 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 [facility] [[email or web address]] for details about his last stent, Afib [...] Cooper Augustin MD, 10 mg at 11/16/24 06 [Held by provider] furosemide (Lasix) tablet 20 mg, 20 mg, Oral, BID, Cooper Augustin MD, 20 mg at 11/10/24 0904 heparin 50 units/mL in sodium chloride 0.45 %, 0.1-40 Units/kg/hr, Intravenous, Continuous, Isaiah Cruz MD, Last Rate: 21 mL/hr at 11/16/24 0500, 12 Units/kg/hr at 11/16/24 0500 labetalol (Normodyne) tablet 200 mg, 200 mg, [...] AM, Cooper Augustin MD, 5 mg at 11/16/24612 sodium chloride (NS) 0.9 % flush 10 [...] daily, Cooper Augustin MD, 1 g at 11/16/24612 tacrolimus (Prograf) capsule 5 mg, 5 mg, Oral, BID, Cooper Augustin MD, 5 mg at 11/16/24612 tamsulosin (Flomax) 24 hr capsule 0.8 mg, 0.8 mg, Oral, Nightly, Cooper Augustin MD, 0.8 mg at 11/15/242058 ticagrelor (Brilinta) tablet 90 mg, 90 mg, Oral, q12h [facility], Cooper Augustin MD, 90 mg at 11/15/242058 [...] 0051 11/12/24 1702 11/12/24 0614 11/12/24 0614 11/09/24 2219 11/09/24 1127 SODIUM mEq/L -- 138 136 -- [...] f/u recs from neuro. Paroxysmal A-fib (CMS/HCC) ([facility]) - Reported history of Afib, though per [facility] [email or web address] records no documented history of LAAL - Start heparin drip - Will need 30d event monitor and eliquis on discharge. -donor kidney transplant KATLYN (acute kidney injury) ([facility]) - Cr 2.26 at presentation, baseline 1.79 [...] recs. Results pending. - Follow up with [facility] [[email or web address]] Renal Transplant on discharge (has appointment in [...] have seen and examined the patient with Law Enforcement Officer Dr Moses on 11/16/24. I have reviewed [...] of last year (2023) and hospitalized as [facility]. 3. Cerebral microvascular ischemic disease. MEDICAL PROBLEM LIST: Strokes x 2. Last 03/2024: Not sure symptoms. Not hospitalized. First: Medical records report 2019. Didn't know it. Second one luis ([facility]). Hypertension. Hyperlipidemia. Prediabetes. Coronary artery disease. [...] x 3 on July 08, 2023 at [facility] [[email or web address]] (per medical record) patient did not remember the number of vessels or the exact timeframe. Renal transplant 2004 (unknown side, medical records suggest right from [facility] [[email or web address]). AV fistula in the left arm x many. Status post RCA PCI 2009. Open cholecystectomy. Parathyroidectomy. Liver biopsy. INTERIM: 11/13/2024: Carotid ultrasound: No hemodynamically significant disease. Subjective Doing well. Neurologically stable. Awaiting discussion of plans from cardiology. HISTORY OF PRESENT ILLNESS: Cely Myers is a very pleasant 69-year-old, right-handed, -[place] gentleman whose past medical history is significant [...] 2024. He believes he was hospitalized at [facility]. When I mention to him that his [...] stroke he may have been hospitalized at [facility] [[email or web address]] in [place]. SCHEDULED MEDICATIONS: allopurinol, 100 mg, Oral, q [...] of last year (2023) and hospitalized as [facility]. 3. Cerebral microvascular ischemic disease. DISCUSSION:Doing well. Neurologically stable. Awaiting discussion of plans from cardiology. RECOMMENDATION:1. No new neurologic recommendations. Discussed with team. Sections of this note may have been created using the popexpert voice-recognition transcribing system. Typographical errors and incorrect [...] -donor kidney transplant KATLYN (acute kidney injury) ([facility]) Paroxysmal A-fib (CMS/HCC) (HCC)Cely Myers is a [...] pending Patient discussed with Dr. Roshan Carrasco, FIELD NURSE CASE MANAGER, AGACNP-BCUT Transplant Nephrology and Surgery Current Diet: [...] the emergency room. Initially attempted transfer to [facility] [[email or web address]] in [place] where patient underwent a renal transplant in [...] Nightly, Cooper Augustin MD, 7.5 mg at 11/14/242104 mycophenolate (Cellcept) capsule 500 mg, 500 mg, Oral, BID, Isaiah Cruz MD, 500 mg at 11/14/242104 Oyster Shell Calcium tablet 500 mg of elemental calcium, 500 mg, Oral, q AM, Sara Live MD, 500 mg of elemental calcium at 11/14/24831 potassium chloride CR (Klor-Con M20) ER tablet 20 mEq, 20 mEq, Oral, Once, Gerardo Hoffman MD pravastatin (Pravachol) tablet 40 mg, 40 mg, Oral, Nightly, Cooper Augustin MD, 40 mg at 11/14/242104 predniSONE (Deltasone) tablet 5 mg, 5 mg, Oral, q AM, Cooper Augustin MD, 5 mg at 11/15/24599 sodium chloride (NS) 0.9 % flush 10 [...] daily, Cooper Augustin MD, 1 g at 11/15/24599 tacrolimus (Prograf) capsule 5 mg, 5 mg, [...] f/u recs from neuro. Paroxysmal A-fib (CMS/HCC) ([facility]) - Reported history of Afib, though per [facility] [[email or web address]] records no documented history of LAAL - [...] recs. Results pending. - Follow up with [facility] [[email or web address]] Renal Transplant on discharge (has appointment in [...] have seen and examined the patient with Law Enforcement Officer Dr Moses on 11/15/24. I have reviewed [...] Myers Admission Date: 11/09/2024 Length of Stay: 5 Days Neurologic Consultation Date: 11/11/2024 Date of Service: 11/14/24 Reason for Consultation: Syncope NEUROLOGIC PROBLEM LIST: 1. Syncope. 2. Prior history of "strokes" x 2 with pontine stroke likely occurring at the end of last year (2023) and hospitalized as [facility]. 3. Cerebral microvascular ischemic disease. MEDICAL PROBLEM LIST: Strokes x 2. Last 03/2024: Not sure symptoms. Not hospitalized. First: Medical records report 2019. Didn't know it. Second one luis ([facility]). Hypertension. Hyperlipidemia. Prediabetes. Coronary artery disease. [...] x 3 on July 08, 2023 at [facility] [[email or web address]] (per medical record) patient did not remember the number of vessels or the exact timeframe. Renal transplant 2004 (unknown side, medical records suggest right from [facility] [[email or web address]). AV fistula in the left arm x [...] Myers is a very pleasant 69-year-old, right-handed, -[place] gentleman whose past medical history is significant [...] 2024. He believes he was hospitalized at [facility]. When I mention to him that his [...] stroke he may have been hospitalized at [facility] [[email or web address]] in [place]. SCHEDULED MEDICATIONS: allopurinol, 100 mg, Oral, q [...] of last year (2023) and hospitalized as [facility]. 3. Cerebral microvascular ischemic disease. DISCUSSION:No new focal or generalized neurologic complaints. MRI of the brain which has been ordered several times by the primary team has also been no DC'd. Extracranial Dopplers were negative for any obvious large vessel occlusion. RECOMMENDATION:1. No new neurologic recommendations. Discussed with team. Sections of this note may have been created using the popexpert voice-recognition transcribing system. Typographical errors and incorrect [...] BP Patient discussed with Dr. Roshan Carrasco, FIELD NURSE CASE MANAGER, AGACNP-BCUT Transplant Nephrology and Surgery Current Diet: [...] will be done Friday morning per MRI board of directors. PVR is only 10mL so retention is [...] PATRIC Hitchcock - 11/14/2024 6:21 AM CDT AHF Progress Note Date: 11/14/2024 Referring Provider: No [...] the emergency room. Initially attempted transfer to [facility] [[email or web address]] in [place] where patient underwent a renal transplant in [...] Cooper Augustin MD, 5 mg at 11/13/24 1735 mirtazapine (Remeron) tablet 7.5 mg, 7.5 mg, [...] Cooper Augustin MD, 5 mg at 11/14/24 06 tamsulosin (Flomax) 24 hr capsule 0.8 [...] f/u recs from neuro. Paroxysmal A-fib (CMS/HCC) ([facility]) - Reported history of Afib, though per [facility] [[email or web address]] records no documented history of LAAL - Start heparin drip - Will need 30d event monitor and eliquis on discharge. -donor kidney transplant KATLYN (acute kidney injury) ([facility]) - Cr 2.26 at presentation, baseline 1.79 [...] recs. Results pending. - Follow up with [facility] [[email or web address]] Renal Transplant on discharge (has appointment in [...] therapy ESRD s/p renal transplant 2004- at [facility] [[email or web address]] - recent increase in lasix to 40mg, [...] HTN Hx of Afib/flutter- need records from [facility] [[email or web address]] on why patient not on AC? NSVT- [...] of last year (2023) and hospitalized as [facility]. 3. Cerebral microvascular ischemic disease. MEDICAL PROBLEM LIST: Strokes x 2. Last 03/2024: Not sure symptoms. Not hospitalized. First: Medical records report 2018. Didn't know it. Second one luis ([facility]). Hypertension. Hyperlipidemia. Prediabetes. Coronary artery disease. [...] x 3 on July 08, 2023 at [facility] [[email or web address]] (per medical record) patient did not remember the number of vessels or the exact timeframe. Renal transplant 2004 (unknown side, medical records suggest right from [facility] [[email or web address]). AV fistula in the left arm x [...] Myers is a very pleasant 69-year-old, right-handed, -[place] gentleman whose past medical history is significant [...] 2024. He believes he was hospitalized at [facility]. When I mention to him that his [...] stroke he may have been hospitalized at [facility] [[email or web address]] in [place]. SCHEDULED MEDICATIONS: allopurinol, 100 mg, Oral, q [...] of last year (2023) and hospitalized as [facility]. 3. Cerebral microvascular ischemic disease. DISCUSSION:The [...] note may have been created using the popexpert voice-recognition transcribing system. Typographical errors and incorrect [...] exam. Patient discussed with Dr. Roshan Carrasco, FIELD NURSE CASE MANAGER, AGACNP-BCUT Transplant Nephrology and Surgery Assessment & [...] the emergency room. Initially attempted transfer to [facility] [[email or web address]] in [place] where patient underwent a renal transplant in [...] Cooper Augustin MD, 100 mg at 11/13/24 06 amLODIPine (Norvasc) tablet 10 mg, 10 mg, Oral, q AM, Cooper Augustin MD, 10 mg at 11/13/24 06 aspirin chewable tablet 81 mg, 81 mg, Oral, Daily, Kenn Rendon MD, 81 mg at 11/12/24 0808 ezetimibe (Zetia) tablet 10 mg, 10 mg, Oral, q AM, Cooper Augustin MD, 10 mg at 11/13/24 06 [Held by provider] furosemide (Lasix) tablet 20 mg, 20 mg, Oral, BID, Cooper Augustin MD, 20 mg at 11/10/24 0904 heparin 50 units/mL in sodium chloride 0.45 %, 0.1-40 Units/kg/hr, Intravenous, Continuous, Isaiah Cruz MD, Last Rate: 22.8 mL/hr at 11/13/24 0400, 13 Units/kg/hr at 11/13/24 0400 labetalol (Normodyne) tablet 200 mg, 200 mg, Oral, q12h, Cooper Augustin MD, 200 mg at 11/12/242016 [Held by provider] lisinopril tablet 5 mg, [...] 90 mg, 90 mg, Oral, q12h TORREY, Coopre Augustin MD, 90 mg at 11/12/242017 Objective: [...] f/u recs from neuro. Paroxysmal A-fib (CMS/HCC) (HCC) - Reported history of Afib, though per [facility] [[email or web address]] records no documented history of LAAL - [...] recs. Results pending. - Follow up with [facility] [[email or web address]] Renal Transplant on discharge (has appointment in [...] therapy ESRD s/p renal transplant 2004- at [facility] [[email or web address]] - recent increase in lasix to 40mg, [...] HTN Hx of Afib/flutter- need records from [facility] [[email or web address]] on why patient not on AC? Kenn Rendon MD * Stephanie Farley OT - 11/12/2024 2:47 PM CDT Evaluation and Treatment Patient Name: Cely Myers Today's Date: 11/12/2024 Preferred Language: Turkmen Assessment & Plan Cely Myers is a [...] of Home: House Lives With: Other (Comment) (Aleksandar (20 yo)) Home Layout: One level Bathroom Shower/Tub: Tub/shower unit Prior Function: ADL Assistance: Independent Homemaking Assistance: Independent Self Care (ADL): Grooming Assistance: Independent Mobility/Transfers: Bed Mobility Bed Mobility Bed Mobility: Yes Bed Mobility 1 Level of Assistance 1: Independent Bed Mobility To/From: Supine to sit on EOB Transfer Transfers Transfer: Yes Transfer 1 Level of Assistance 1: Independent Transfer To/From: Atk-pq-Gjscn/Kqcqc-wi-Qno, Bed, Chair OT General Assessments: Activity Tolerance [...] Level of Assistance 1: Independent Transfer To/From: Qjx-rk-Ipxdl/Acvti-sv-Vxr, Bed, Chair Therapeutic ActivityTherapeutic Activity Time Entry: [...] were not included. NEUROLOGY PROGRESS NOTE Cely Leobardo Myers Admission Date: 11/09/2024 Length of Stay: 3 Days Neurologic Consultation Date: 11/11/2024 Date of Service: 11/12/24 Reason for Consultation: Syncope NEUROLOGIC PROBLEM LIST: 1. Syncope. 2. Prior history of "strokes" x 2 with pontine stroke likely occurring at the end of last year (2023) and hospitalized as [facility]. 3. Cerebral microvascular ischemic disease. MEDICAL PROBLEM LIST: Strokes x 2. Last 03/2024: Not sure symptoms. Not hospitalized. First: Medical records report 2019. Didn't know it. Second one luis ([facility]). Hypertension. Hyperlipidemia. Prediabetes. Coronary artery disease. [...] x 3 on July 08, 2023 at [facility] [[email or web address]] (per medical record) patient did not remember the number of vessels or the exact timeframe. Renal transplant 2004 (unknown side, medical records suggest right from [facility] [[email or web address]). AV fistula in the left arm x many. Status post RCA PCI 2009. Open cholecystectomy. Parathyroidectomy. Liver biopsy. INTERIM: Subjective Awaiting completion of cardiac workup. Carotid Dopplers are pending. No new focal or generalized neurologic complaints. HISTORY OF PRESENT ILLNESS: Cely Myers is a very pleasant 69-year-old, right-handed, -[place] gentleman whose past medical history is significant [...] 2024. He believes he was hospitalized at [facility]. When I mention to him that his [...] stroke he may have been hospitalized at [facility] [[email or web address]] in [place]. SCHEDULED MEDICATIONS: allopurinol, 100 mg, Oral, q [...] of last year (2023) and hospitalized as [facility]. 3. Cerebral microvascular ischemic disease. DISCUSSION: [...] note may have been created using the popexpert voice-recognition transcribing system. Typographical errors and incorrect words or phrases may have been missed during proofreading. Please interpret accordingly. * Sue Smith, PT - 11/11/2024 3:35 PM CDT Evaluation and Treatment Note Patient Name: Cely Myers Today's Date: 11/11/2024 Preferred Language: Turkmen Start Time: 1250 Stop Time: 1318 Time [...] level Prior Level of Function: Level of [place]: (Pt was fully independent, driving) Objective General [...] 1:Level of Assistance 1: Independent Transfer To/From: Ssu-bs-Qwzry/Moyxk-wm-Cqg Extremity Assessments:Right Lower Extremity RLE Assessment RLE [...] 7 Mobility: Highest Level of Mobility Performed (JH-HLM)Walked 250 feet or more (i.e. several laps [...] trx for patient to go to [facility] for Nephrology consult and kidney transplant. SW called [facility] [[email or web address] trx ctr at [phone] and spoke to Will. Patient requested for [facility], but the services he needs would be at [facility]. Acc to Will, both campuses are at capacity. This is deemed a capacity denial @3692. Sue Rodriguez LCSW [facility] [id number] 17:15:03Pending Results Scheduled Orders Name Type Priority [...] on patient's age to complete this topic [id number] 17:15:03 Diagnosis Syncope and collapse - Prima ry Dyspnea, unspecified type Coronary artery disease invo lving autologous artery coronary bypass graft without angina pectoris Essential hypertension Unspecified essential hypertension -donor kidney transplant Kidney replaced by transplant KATLYN (acute kidney injury) ([facility]) Paroxysmal A-fib (CMS/HCC) ( [facility]) [facility] [id number] 17:15:03 [facility] [id number] 15:13:14 Images from the original note were not included. [id number] Coping with Shortness of Breath: Controlling Stress [...] you. Last Reviewed Date: 2023 00:00:00 ? [id number] [employer]. All rights reserved. This information is not intended as a substitute for professional medical care. Always follow your healthcare professional's instructions. T [facility] [id number] 15:13:14 Images from the original note were not included. [id number] Allopurinol WHY is this medicine prescribed? Allopurinol [...] and out of their sight and reach. [email or web address] What OTHER INFORMATION should I know? Keep [...] of all of the prescription and nonprescription (brpk-fxc-siwumzy) medicines, vitamins, minerals, and dietary supplements you [...] or pharmacist about specific clinical use. The [place] [employer] represents that the information provided hereunder was formulated with a reasonable standard of care, and in conformity with professional standards in the field. [employer] [place] [employer] makes no representations or warranties, express or implied, including, but not limited to, any implied warranty of merchantability and/or fitness for a particular purpose, with respect to such information and specifically disclaims all such warranties. Users are advised that decisions regarding drug therapy are complex medical decisions requiring the independent, informed decision of an appropriate health director of primary care, and the information is provided for informational purposes only. The entire monograph for a drug should be reviewed for a thorough understanding of the drug's actions, uses and side effects. [employer] [place] [employer] does not endorse or recommend the use of any drug. The information is not a substitute for medical care. AHFS? Patient Medication Information?. ? Copyright, 2023. [employer] [place] [employer]?, [address], [address], [place], [place]. All Rights Reserved. Duplication for commercial use must be authorized by [facility]. Selected Revisions: January 10, 2023. AHFS? Patient Medication Information?. ? Copyright, 2024 Kimberlyn HuffUjznfsv6925-73-41 15:13:14 Images from the original note were not included. 20928 Diagnosing Syncope Syncope is when you suddenly [...] syncope. For instance, you may see a dump truck driver off highway or a neurologist.. Treatment will be based [...] again. Last Reviewed Date: 2023 00:00:00 ? [id number] [employer]. All rights reserved. This information is not intended as a substitute for professional medical care. Always follow your healthcare professional's instructions. [facility]2025-07-25 15:13:13 Images from the original note were not included. [id number] Shortness of Breath (Dyspnea) Shortness of breath [...] provider Last Reviewed Date: 2024 00:00:00 ? [id number] [employer]. All rights reserved. This information is not intended as a substitute for professional medical care. Always follow your healthcare professional's instructions. [facility]2025-07-25 14:26:04 The patient is Moderately Unstable - [...] monitored and maintained or improved Outcome: Progressing [facility]2025-07-25 11:12:18 Scheduled pt apt needs to see surgery and forest management professor r/t mass found on txpl kidney at OSH, nicolle is faxing all records over Oli Cleveland [facility] HospitalOytpub9684-22-73 08:34:07 [facility], for transplant updates, please call back [phone] (cell ph) Lisa HickmanOhio[facility] Mansfield HospitalWwepui0516-19-55 22:25:41 The patient is Moderately Stable - [...] Adult Goal: Maintains hematologic stability Outcome: Progressing [facility]2025-07-24 09:53:24 The patient is Moderately Stable - Low risk of patient condition declining or worsening The patient's goals for the shift include Rest The clinical goals for the shift include Hemodynamic stability [facility]2025-07-24 04:43:31 The patient is Moderately Stable - Low risk of patient condition declining or worsening The patient's goals for the shift include REST The clinical goals for the shift include HDS [facility]2025-07-23 13:23:35 11/19 pt dc from OSH apt with sx and yxpl made for 11/24/24 and records resquested 11/18/24: still awaiting transfer Spoke to Nicolle (coordinator) pt is pending transfer to [email or web address] r./t large mass on transplanted kidney that was found incidentally while syncope episode/ KATLYN work up was being completed at OSH. Mass first found in 2017, but seems to have grown quick larger per Nicolle based on [address] CT. Weighing biopsy. Oli Cleveland [facility] HospitalYtukov6932-05-04 09:47:59 Cely Myers is a 69 year old male Della with [facility] in [place] is calling to speak to either the physician or the coordinator to discuss pt care. Please call back at [phone] (Dr [place]) Aarti HinojosaSycamore Medical CenterBqdofi3189-98-17 08:00:00 The patient is Moderately Stable - Low risk of patient condition declining or worsening The patient's goals for the shift include rest The clinical goals for the shift include HDS [facility]2025-07-23 03:36:08 The patient is Moderately Unstable - [...] other facility with appropriate resources Outcome: Ongoing [facility]2025-07-22 08:00:00 The patient is Moderately Stable - Low risk of patient condition declining or worsening The patient's goals for the shift include sleep The clinical goals for the shift include HDs Over the shift, the patient did not make progress toward the following goals. Barriers to progression include . Recommendations to address these barriers include . T [facility]2025-07-21 08:19:40 Pt informed that if he needs to urinate, to go ahead and do so--as he is already connected to the condom catheter and drainage bag. Pt is on MRI table and being set up with bety positioned on the diaphragm for timing as we are about to commence the MRI. T [facility]2025-07-21 08:00:00 The patient is Moderately Unstable - Medium risk of patient condition declining or worsening The patient's goals for the shift include rest The clinical goals for the shift include MRI, PYP Over the shift, the patient did not make progress toward the following goals. Barriers to progression include . Recommendations to address these barriers include . T [facility] CenterXaqjpgl8584-26-06 17:09:20 The patient is Moderately Stable - Low risk of patient condition declining or worsening The patient's goals for the shift include Rest The clinical goals for the shift include Hemodynamically stable [facility]2025-07-19 22:51:02 The patient is Moderately Stable - [...] will remain free of falls Outcome: Ongoing [facility]2025-07-19 08:43:21 The patient is Unstable - High likelihood or risk of patient condition declining or worsening The patient's goals for the shift include Rest, Safety, Comfort The clinical goals for the shift include HDS T [facility]2025-07-18 11:16:48 MRI near complete, report given VSS, NAD, will return PT to unit on monitor w/ MRI RN and transport upon arrival. [facility]2025-07-18 08:39:19 The patient is Unstable - High likelihood or risk of patient condition declining or worsening The patient's goals for the shift include Rest, Safety, Comfort The clinical goals for the shift include HDS T [facility] CenterSkzvtrd7102-31-33 20:00:00 The patient is Moderately Unstable - [...] free of falls Outcome: Progressing Justa Gomez [facility]2025-07-17 14:38:20 Problem: Pain - Adult Goal: Verbalizes/displays [...] plan, medications, and discharge instructions Outcome: Ongoing [facility]2025-07-16 20:00:00 The patient is Moderately Unstable - [...] will remain free of falls Outcome: Progressing [facility] CenterPfiarog0366-72-32 11:00:28 Ashvin Patel is a 69 y.o. [...] diuretics being adjusted and ongoing syncope workup. Internal Medicine PhysicianMemorijo HuffVhrpwdj9194-46-24 11:07:00 History of Present Illness: Chief Complaint: [...] : ED Course: as of 11/15/24 1531 e Nov 09, 2024 1258 Natriuretic Peptide B(!): 446 [DW] 1327 XR chest 1 view IMPRESSION: Right greater than left bronchovascular crowding, with/without superimposed pulmonary edema or developing infection. [DW] 1327 HS Troponin I 0 to 1 Hour Delta: -10 [DW] 1358 Creatinine Lvl(!): 2.26 1.95 on labs drawn yesterday. [BF] 1441 Hx of renal transplant, prior heart surgery at [facility] - unknown details, presenting for syncopal episode while seated, new 2 L O2 requirement, hypoxic to 90% without O2, has KATLYN, pending reassessment - possible diuretics for CHF exacerbation [AL] 183 CT angiogram chest pulmonary embolism 1. No [...] Favio Noe, DO Emergency Medicine | PGY-2 [facility] This note was dictated with the use of dictation speech recognition software, please use best judgement when interpreting and excuse any mechanic and welder errors. Complexity of Problems Addressed (High) I [...] Scoring Tools Favio Noe MD Resident 11/15/24 2527 Cosigned by Randolph Katz MD at 11/16/2024 [...] Dyspnea, unspecified type Randolph Katz MD, S Customer Engineer [employer] [facility] Department of Emergency Medicine November 16, 2024 5:27 PM Emergency MedicineLake Granbury Medical CenterVwhrsfg3718-19-87 11:07:00 I assumed care of this patient [...] of renal transplant, prior heart surgery at [facility] - unknown details, presenting for syncopal episode while seated, new 2 L O2 requirement, hypoxic to 90% without O2, has KATLYN, pending reassessment - possible diuretics for CHF exacerbation [AL] 183 CT angiogram chest pulmonary embolism 1. No [...] Katz MD [DW] Favio Noe MD [SM] Knedal Conde MD Diagnoses as of 11/14/24 1110 Dyspnea, unspecified type SW stated both [facility] [[email or web address] campuses are at capacity. Consulted cardiology for admission, concern for cardiac contribution to syncopal event. Cardiology said they will admit the pt. [facility] Details Category 3: (Consult) I [...] 11/16/2024 8:57 AM CDT Teaching Attending Attestation ([place] of Care Note): I assumed care of this patient from the previous EC attending. I agree with the resident's plan unless further documented below. Additionally, I was directly involved in the management of the patient. Impression: 1. Dyspnea, unspecified type Rafaela Lawrence MD [facility] CenterBvewldo3905-61-28 10:52:30 11/09/24 1053: called pt LVM r/t tacro trough <3 Oli Cleveland RNSycamore Medical CenterCwphtu2313-75-57 08:15:00 Images from the original note were not included. Venipuncture collection performed by clean technique on the left anticubitus. Total of 1 attempts were made. Slight pressure and a bandage/dressing were applied to the site(s). The patient experienced no complications. The following specimens were processed according to instructions and sent to [facility] [[email or web address] laboratories per lab order on 11/08/2024 : [...] 3 Urine Culture Aptima tube Other urine [facility] CenterXouzjk1844-20-40 07:28:54 FRANK 10/21/24 NOV 04/25/25 Pao Maradiaga [facility] HospitalEvmkfr9365-82-97 09:59:46 Per ALFREDO Abrams no phone has been found. She will continue to ask around. Called pt on number provided. No answer. Left VM that no phone has been turned in. Pao Maradiaga [facility] HospitalNbjywj9430-57-00 18:05:31 Cely Myers is a 69 year old male Patient is calling stating he left his smart phone at the clinic at today's visit 10/21/24. Please call [phone]. Breonna WhitfieldSycamore Medical CenterAvgglh7204-06-75 08:00:00 Images from the original note were not included. Venipuncture collection performed by clean technique on the right anticubitus. Total of 2 attempts were made. Slight pressure and a bandage/dressing were applied to the site(s). The patient experienced no complications. The following specimens were processed according to instructions and sent to [facility] [[email or web address] laboratories per lab order on 10/15/2024 : LT BLUE SST 1 RED 1 LAV 2 PPT 2 DK GREEN (LiHep) DK GREEN (SodH) ROCHA DK BLUE (K2) DK BLUE (S) ACD Blood Culture NIPT/NTD Patient has been identified by and was provided with cup, antiseptic towelette, and clean catch instructions. 2 urine specimen(s) sent. Unpreserved 2 Urine Culture Aptima tube Other urine [place] 379445-06-09 08:57:15 Requested Prescriptions Pending Prescriptions Disp Refills TACROLIMUS 1 mg capsule [Pharmacy Med Name: TACROLIMUS 1 MG CAPSULE (IR)] 900 capsule 4 Sig: TAKE 5 CAPSULES BY MOUTH EVERY 12 HOURS. (TAKE 5 CAPS IN THE MORNING AND 5 CAPS IN THE EVENING) FRANK: 04/12/24 NOV: 10/21/24 Oli Cleveland [place] 627305-06-03 10:48:41 FRANK 04/12/24 NOV 10/21/24 Pao Maradiaga [facility] HospitalHzttxl5014-57-13 09:47:34 Images from the original note were not included. Routed to provider for review. Unable to refill per ambulatory refill guidelines. Notes: fluticasone propionate 50 mcg/actuation nasal spray Sig: N/A Disp: 16 g Refills: 2 Start: 08/19/2024 Class: eRX For: Chronic allergic rhinitis Last ordered: 3 months ago (05/18/2024) by Dhiraj Fernandes MD Pulmonology & Allergy: Maintenance Inhalers (ICS-inhaled corticosteroids) Xyhzky2908/19/2024 08:09 AM Protocol Details Valid encounter within last 12 months To be filled at: [facility]/pharmacy #[id number] Last Refilled: 05/18/24 Recent Visits Date Type Provider Dept 08/03/24 Office Visit Abner Rivera MD [facility] Family Medicine 04/29/24 Office Visit bAner Rivera MD [facility] Family Medicine 01/21/24 Office Visit Abner Rivera MD [facility] 01/21/24 Office Visit Abner Rivera MD [facility] 10/07/23 Office Visit Nicolle Phillips FNP [facility] Showing recent visits within past 540 days with a meds authorizing provider and meeting all other requirements Future Appointments No visits were found meeting these conditions. Showing future appointments within next 150 days with a meds authorizing provider and meeting all other requirements Nicolle Haley MASycamore Medical CenterWvrcuj3687-55-53 16:00:00 Images from the original note were not included. Venipuncture collection performed by clean technique on the right anticubitus. Total of 2 attempts were made. Slight pressure and a bandage/dressing were applied to the site(s). The patient experienced no complications. The following specimens were processed according to instructions and sent to [facility] [[email or web address]] laboratories per lab order on 08/03/2024: LT BLUE SST 2 RED LAV 1 PPT 1 DK GREEN (LiHep) DK GREEN (SodH) ROCHA DK BLUE (K2) DK BLUE (S) ACD Blood Culture NIPT/NTD T Mariia GranadosSycamore Medical CenterNmttzf2746-87-02 16:00:00 Normal labs. Continue with well balanced diet (including fish, organ meats, vegetables, fruits, fortified cereals) with activities and exercise as tolerated. T [place] 379445-04-08 16:00:00 Normal thyroid T [place] 379445-04-08 16:00:00 Low Vit D level 23 [goal 25 - 80]. Start taking 50,000IU vitamin D3 daily, with Calcium 500mg daily. Prescription sent to the pharmacy. [facility] CenterCifzbe9802-28-51 16:00:00 Addended by: ABNER RIVERA on: 08/04/2024 11:58 AM Modules accepted: Orders [place] 09146-03-25 09:19:02 FRANK 04/12/24 NOV 10/21/24 Pao Maradiaga [place] 627305-02-28 08:44:04 Images from the original note were not included. MEDICATION REFILL REQUEST The following eRX(s) were sent to the requested pharmacy Requested Prescriptions Pending Prescriptions Disp Refills tacrolimus 1 mg capsule 810 capsule 3 Pt requested this refill yesterday. Called [facility] to inquire why this request was being sent in again. [facility] states the refill is ready to be picked up. Called pt to inform him- voicemail left. Refill request refused since drug is already filled and ready for pickup. Christy Mares RN, BSN [employer] Music Store Manager Office: [phone] | Direct: [phone] Email: [email or web address] Christy Mares [facility] HospitalEyrrbl3492-04-82 08:31:25 Cely Myers is a 69 year old male calling for refill on TACROLIMUS 1 mg capsule Please advise [facility]/pharmacy #[id number] - [address] [place] [id number] [place] [address]-02-27 11:12:23 Images from the original note were [...] " NOV:10/21/24 Christy Mares RN, BSN Kidney Music Store Manager Office: [phone] | Direct: [phone] Email: [email or web address] Christy Mares [place] [address]-02-17 09:51:37 Call placed to pharmacy to approve 90 day supply with no refills. Riley RNDaniel [place]ille 379445-02-17 08:37:50 3rd attempt, unable to LVM. Closing encounter. Hinojosa V [place] 627305-02-17 08:20:55 Images from the original note were not included. CrooksDaniel [place] 379445-02-14 11:55:16 2nd attempt, no answer or option given to LVM. [place] [address]-02-13 09:13:59 Call placed to pt no answer or option given to LVM. [facility]2025-02-12 17:38:31 Rx sent, let patient know, and to follow-up as scheduled. Essential hypertension/S/P CABG (coronary artery bypass graft) - labetaloL 200 mg tablet; Take 2 tablets by mouth every 12 (twelve) hours. Dispense: 120 tablet; Refill: 2 [facility]2025-02-12 07:45:29 Cely Myers is a 69 year old male patient calling out of Labetalol 200 mg, requesting refill. Please call [phone] [facility]/pharmacy #[id number] [address] H CASHIER Tiffany MorganCleveland Clinic South Pointe HospitalDlbmvc7519-15-25 11:29:24 Called pt no answer unable to leave voicemail "wireless customer is not available please try again later". [facility] Chloe BraySycamore Medical CenterGuwyzc8385-21-74 08:52:00 Christina Nurse Linen Manager with [facility] is calling to report that Cely Myers is a 69 year old male was discharged from [facility] 05/19/24. He was admitted on 05/10 for I 21.4 Heart attack. She is requesting patient outreach for follow up visit Please advise Christina Auguste [phone] ext [phone] Cely Myers is a 69 year old male [phone] (home) [facility] Kate MichaelSycamore Medical CenterZrynaz9630-73-36 14:02:28 Images from the original note were not included. [facility]2025-01-27 09:09:58 Images from the original note were [...] Class: eRX For: Coronary artery disease involving kasaan coronary artery of kasaan heart without angina pectoris, Essential hypertension Last ordered: 1 year ago (02/19/2023) by Junior Garcia NP Last refill: 02/18/2024 Rx #: [id number] Cardiovascular: ZHEN Inhibitors Vlllos0305/22/2024 07:15 AM Protocol Details Cr in normal range and within 360 days Valid encounter within last 12 months K in normal range and within 360 days To be filled at: [facility]/pharmacy #[id number] 04-29-2024 NOV 05-24-2024 [place] 420175-01-23 09:15:40 Images from the original note were not included. Medical record received from [facility] scanned in folder and placed in provider basket for review. BraySycamore Medical CenterVrlyah0405-36-85 09:11:17 Images from the original note were not included. [facility] radiology report received placed in Dr. Rivera folder for review. [facility] Joyce CrooksSycamore Medical CenterCvnxgk3903-25-40 12:35:36 Pharmacy requesting 90 day script with Dx, routing to provider for updated script. H CASHIER Rina Riley RNSycamore Medical CenterHrguei9578-74-69 08:16:09 Images from the original note were not included. [facility] Chloe BraySycamore Medical CenterVczjeg2539-33-29 08:30:00 Images from the original note were not included. Venipuncture collection performed by clean technique on the right anticubitus. Total of 1 attempts were made. Slight pressure and a bandage/dressing were applied to the site(s). The patient experienced no complications. The following specimens were processed according to instructions and sent to [facility] [[email or web address] laboratories per lab order on 04/23/2024 : LT BLUE SST 1 RED LAV 2 PPT 2 DK GREEN (LiHep) DK GREEN (SodH) ROCHA DK BLUE (K2) DK BLUE (S) ACD Blood Culture NIPT/NTD Patient has been identified by and name and was provided with cup, antiseptic towelette, and clean catch instructions. 2 urine specimen(s) sent. Unpreserved 2 Urine Culture Aptima tube Other urine [place] [id number] 14:00:00 Addended by: OLI CLEVELAND on: 04/14/2024 11:40 AM Modules accepted: Orders [place] [id number] 12:45:00 Images from the original note were not included. Venipuncture collection performed by clean technique on the left anticubitus. Total of 1 attempts were made. Slight pressure and a bandage/dressing were applied to the site(s). The patient experienced no complications. The following specimens were processed according to instructions and sent to [email or web address] laboratories per lab order on 04/12/24: LT BLUE SST 3 RED 1 LAV 2 PPT 1 DK GREEN (LiHep) DK GREEN (SodH) ROCHA DK BLUE (K2) DK BLUE (S) ACD Blood Culture NIPT/NTD Patient has been identified by and name and was provided with cup, antiseptic towelette, and clean catch instructions. 2 urine specimen(s) sent. Unpreserved 2 Urine Culture Aptima tube Other urine [facility]2024-11-22 12:42:08 Images from the original note were [...] Rivera MD Last refill: 02/15/2024 Rx #: [id number] Pharmacy comment: REQUEST FOR 90 DAYS PRESCRIPTION. DX Code Needed. Pulmonology & Allergy: Maintenance Inhalers (ICS-inhaled corticosteroids) Obeoqf8903/19/2024 11:33 AM Protocol Details Valid encounter within last 12 months This request has changes from the previous prescription. To be filled at: [facility]/pharmacy #[id number] [facility]2024-10-18 09:16:54 Images from the original note were [...] Rivera MD Last refill: 01/21/2024 Rx #: [id number] Pharmacy comment: REQUEST FOR 90 DAYS PRESCRIPTION. DX Code Needed. Allergy Ymqaoq2002/13/2024 07:31 AM Protocol Details Valid encounter within last 12 months This request has changes from the previous prescription. To be filled at: [facility][id number] - [address] [facility]2024-09-26 13:23:22 Images from the original note were [...] Rivera MD Last refill: 01/09/2024 Rx #: [id number] Cardiovascular: Beta Blockers Pscuzv8901/22/2024 10:23 AM Protocol Details Valid encounter within last 12 months Heart rate within normal limits and completed in the last 12 months To be filled at: [facility][id number] - [address] Last Refilled: 01/09/2024 Recent Visits Date Type Provider Dept 01/21/24 Office Visit Abner Rivera MD [facility] Family Medicine 01/21/24 Office Visit Abner Rivera MD [facility] Family Medicine 10/07/23 Office Visit Nicolle Phillips FNP [facility] Family Medicine 02/19/23 Office Visit Junior Garcia NP [facility] Family Medicine 01/13/23 Office Visit Junior Garcia NP [facility] Family Medicine 10/21/22 Office Visit Abner Rivera MD [facility] Family Medicine Showing recent visits within past 540 days with a meds authorizing provider and meeting all other requirements Future Appointments Date Type Provider Dept 04/29/24 Appointment Abner Rivera MD [facility] Family Medicine Showing future appointments within next 150 days with a meds authorizing provider and meeting all other requirements Nicolle Haley [place] [id number] 11:23:20 Addended by: NICOLLE HALEY MA on: 01/09/2024 11:23 AM Modules accepted: Orders Nicolle Haley [place] 565414-09-13 11:17:09 Images from the original note were not included. Notes: labetaloL 200 mg tablet Sig: Take 2 tablets by mouth every 12 (twelve) hours. Disp: 120 tablet Refills: 2 Start: 01/09/2024 Class: eRX For: S/P CABG (coronary artery bypass graft), Essential hypertension Last ordered: 1 month ago (11/17/2023) by Abner Rivera MD Cardiovascular: Beta Blockers Jbcbqp4801/09/2024 09:55 AM Protocol Details Valid encounter within last 12 months Heart rate within normal limits and completed in the last 12 months To be filled at: [facility]/pharmacy #[id number] Last Refilled: 11/17/2023 Recent Visits Date Type Provider Dept 10/07/23 Office Visit Nicolle Phillips FNP [facility] Family Medicine 02/19/23 Office Visit Junior Garcia NP [facility] Family Medicine 01/13/23 Office Visit Junior Garcia NP [facility] Family Medicine 10/21/22 Office Visit Abner Rivera MD [facility] Family Medicine 07/30/22 Office Visit Junior Garcia NP [facility] Family Medicine Showing recent visits within past 540 days with a meds authorizing provider and meeting all other requirements Future Appointments Date Type Provider Dept 01/21/24 Appointment Abner Rivera MD [facility] Family Medicine 01/21/24 Appointment Abner Rivera MD [facility] Family Medicine Showing future appointments within next 150 days with a meds authorizing provider and meeting all other requirements Nicolle Haley MADan[place] 379444-09-13 09:54:10 Images from the original note were not included. [facility] CenterHqfdfl3751-28-57 16:00:00 Images from the original note were not included. Venipuncture collection performed by clean technique on the right anticubitus. Total of 2 attempts were made. Slight pressure and a bandage/dressing were applied to the site(s). The patient experienced no complications. The following specimens were processed according to instructions and sent to [facility] [[email or web address] laboratories per lab order on 01/05/2024 : [...] 3 Urine Culture Aptima tube Other urine [place] 379444-08-09 09:39:44 Images from the original note were not included. Refill request refilled per ambulatory refill guidelines. Notes: Name from pharmacy: PRAVASTATIN SODIUM 40 MG TAB Will file in chart as: PRAVASTATIN 40 mg tablet Sig: TAKE 1 TABLET BY MOUTH EVERYDAY AT BEDTIME Disp: 90 tablet Refills: 0 (Pharmacy requested: Not specified) Start: 12/05/2023 Class: eRX For: Coronary artery disease involving kasaan coronary artery of kasaan heart without angina pectoris Last ordered: 3 months ago (08/28/2023) by Junior Garcia NP Last refill: 08/28/2023 Rx #: [id number] Cardiovascular: Antilipid - HMG-CoA Reductase Inhibitors Zpqxcj6812/05/2023 12:27 AM Protocol Details Valid encounter within last 12 months Total Cholesterol within 360 days LDL within 360 days HDL within 360 days Triglycerides within 360 days AST in normal range and within 360 days ALT in normal range and within 360 days To be filled at: [facility]/pharmacy #[id number] - [address] Last Refilled: 08/28/23 Recent Visits Date Type Provider Dept 10/07/23 Office Visit Nicolle Phillips FNP [facility] Family Medicine 02/19/23 Office Visit Junior Garcia NP [facility] Family Medicine 01/13/23 Office Visit Junior Garcia NP [facility] Family Medicine 10/21/22 Office Visit Abner Rivera MD [facility] Family Medicine 07/30/22 Office Visit Junior Garcia NP [facility] Family [facility] Showing recent visits within past 540 days with a meds authorizing provider and meeting all other requirements Future Appointments Date Type Provider Dept 01/21/24 Appointment Abner Rivera MD [facility] Medicine 01/21/24 Appointment Abner Rivera MD [facility] Showing future appointments within next 150 days with a meds authorizing provider and meeting all other requirements Nicolle Haley MAS[facility] CenterIykicu3211-17-30 11:55:53 Refill request for Lasix or another diuretic for leg edema, attempt to reach patient , VM not accepting messages FRANK 11/12/[address] Hoyos for advice CREATININE Date Value Ref Range Status 11/27/2023 2.10 (H) 0.60 - 1.25 mg/dL Final Cintia Bardales [facility] - Qifrph9719-05-23 12:15:00 Images from the original note were not included. Venipuncture collection performed by clean technique on the right anticubitus. Total of 1 attempts were made. Slight pressure and a bandage/dressing were applied to the site(s). The patient experienced no complications. The following specimens were processed according to instructions and sent to [facility] [[email or web address]] laboratories per lab order on 11/27/23: LT BLUE SST 1 RED LAV 2 PPT 1 DK GREEN (LiHep) DK GREEN (SodH) ROCHA DK BLUE (K2) DK BLUE (S) ACD Blood Culture NIPT/NTD Patient has been identified by and name and was provided with cup, antiseptic towelette, and clean catch instructions. 2 urine specimen(s) sent. Unpreserved 2 Urine Culture Aptima tube Other urine T [facility] CenterGeglty4821-64-23 08:53:15 Patient does not have voice mailbox set up. Tried to call patient back to let him no that he does not need to fast for his procedure. T Breann Aburto RNSycamore Medical CenterBponxn0840-00-78 14:39:33 Cely Myers is a 68 year old male Pt calling because he's having a vascular lab done tomorrow, wants to know how he should prepare. Reached out to vasc lab with no answer. Unable to tell if it's one he shouldn't eat for from looking at order. Please advise. T Emani StaleySycamore Medical CenterPuzvwi4077-88-95 16:19:57 Rx sent, let patient know, and to follow-up as scheduled. T [facility] CenterRoxswg6354-58-37 08:07:41 Cely Myers is a 68 year old male checking status of his refill. He is out. Please advise, thanks. [id number] [place], [place] - [address] [address] Janina HinojosaSycamore Medical CenterXcjorn3548-11-99 14:28:49 Cely Myers is a 68 year old male and pt is calling back about his refill request for labetaloL [address] Hoyos with cardiology stated he could refill. Pt is out of medication currently. Reached out to nurses and they advised clinic. Please advise. Elaine UmanzorMer[facility] Health St. [facility]'s Medical CenterNlrsyr8837-81-63 15:54:56 Please review and advise. T [place] 379444-07-16 15:24:53 We can refill or PCP can [place] 379444-07-16 15:21:06 Please review and sign if appropriate: Last office visit: 10/16/23 Next office visit: 11/12/23 Requested Prescriptions Pending Prescriptions Disp Refills labetaloL 200 mg tablet 120 tablet 1 Sig: Take 2 tablets by mouth every 12 (twelve) hours. Last refill date: 09/14/23 Notes: S/P CABG (coronary artery bypass graft) [facility] CenterIsegcy5903-63-51 13:05:40 Returned pt call and notified him he does not have an active labetalol Rx on file and it was last prescribed by PCP. No answer, and no mailbox to leave VM. Pao Maradiaga [facility] HospitalGfzded1955-23-38 12:40:55 Cely Myers is a 68 year old male Pt is requesting a refill on labetaloL 200 mg tablet. Please advise [facility]/pharmacy #[id number] - [place], [place] - [address] [place] [address] Regla CorleySycamore Medical CenterSoawzi1105-39-18 16:25:48 Medical records received from [facility] scanned in folder and placed in provider basket for review. Chloe BraySycamore Medical CenterHuscbe3744-88-03 15:59:25 Images from the original note were not included. Patient was notified of the results below, he verbally understood and agreed to the plan. Thank you Tomeka Hoyos MD P Cardiology Nurse BNP improved. BMP stable. Follow up as scheduled. Lexi Martinez MASycamore Medical CenterUrzhxq0637-44-95 08:55:22 Images from the original note were not included. I have attempted without success to contact this patient by phone to will try again later. Tomeka Hoyos MD P Cardiology Nurse BNP improved. BMP stable. Follow up as scheduled. [facility] CenterAdlajd4707-99-95 10:45:00 Images from the original note were not included. Venipuncture collection performed by clean technique on the right anticubitus. Total of 1 attempts were made. Slight pressure and a bandage/dressing were applied to the site(s). The patient experienced no complications. The following specimens were processed according to instructions and sent to [facility] [[email or web address] laboratories per lab order on 10/23/2023 : LT BLUE SST 1 RED LAV PPT DK GREEN (LiHep) DK GREEN (SodH) ROCHA DK BLUE (K2) DK BLUE (S) ACD Blood Culture NIPT/NTD [facility] CenterXzpdrb4527-10-27 15:03:29 Pt requesting a refill on mycophenolate 250 mg capsule , pls advise. [facility]/pharmacy #[id number] - [address] [address] Emily ReyesSycamore Medical CenterVtiezf2641-23-94 15:45:10 [facility] [[email or web address]] Specialty Pharmacy Monthly Clinical Refill Assessment Cely Myers is a 68 year old male who is followed by the [facility] [[email or web address] specialty pharmacy service for [facility]. Am I speaking with the patient? Yes [...] the confirmed shipping address is [address] [facility] [address]. Do you have any specific shipping directions? No The results of this survey require review by a specialty pharmacist prior to refilling the medication. The pharmacist will be contacted immediately. Thank you, Rose Leach RPH [facility] [[email or web address] Specialty Pharmacy Rose Leach [facility]2024-06-11 10:30:00 Images from the original note were not included. Venipuncture collection performed by clean technique on the right anticubitus. Total of 2 attempts were made. Slight pressure and a bandage/dressing were applied to the site(s). The patient experienced no complications. The following specimens were processed according to instructions and sent to [facility] [[email or web address]] laboratories per lab order on 10/07/2023 : [...] urine Only phillips orders per pt request [facility] CenterXwrapk5033-53-35 10:00:00 Labs still consistent with Pre Diabetes [...] glucose metabolism and prevent and treat CVD ([place] [employer]. Diabetes Care). Worsening of kidney function This is important to watch closely I will forward labs to your transplant and kidney doctors as well BnP is increase, Please see Dr. Hoyos as scheduled I will also forward to him [facility] CenterReyaas8810-78-67 10:34:25 FRANK 05/26MAR 04 Pao Maradiaga RNSycamore Medical CenterRajmpf1415-08-17 09:02:40 Summary: [facility] [[email or web address] Specialty Pharmacy [facility] [[email or web address] Specialty Pharmacy Monthly Clinical Assessment After reviewing the results of the administered survey, it is appropriate to continue the medication as prescribed. The [facility] [[email or web address] Specialty Pharmacy will refill the medication and continue to follow this patient and address any concerns that arise while on therapy with Dupixent. Thank you, Marisela Van [facility] Specialty Pharmacy Marisela Van [facility]2024-05-21 14:08:57 [facility] [[email or web address] Specialty Pharmacy Monthly Clinical Refill Assessment Cely Myers is a 68 year old male who is followed by the [facility] [[email or web address]] specialty pharmacy service for Dupixent. Am I [...] the confirmed shipping address is [address] [facility] [address]. Do you have any specific shipping directions? No The results of this survey will be reviewed by a specialty pharmacist and the medication order will be refilled. Thank you, Shyann Fitch [facility] [[email or web address] Specialty Pharmacy Shyann FitchSycamore Medical CenterItmafg6003-56-75 10:22:37 Consult/Referral to Cardiology completed. [facility] CenterJivllh7250-32-88 11:00:35 Spoke to the patient and he is not able to do the 09/11 appt. But was okay for 09/17/23 and appointment moved. Patient verbalized understanding of recommendations from Dr. Mayorga as well and has no further questions or concerns at this time. [facility] CenterZdihjy9635-02-17 14:11:36 Patient has an appointment on 09/11/2023 with [facility] [[email or web address] CARDIOLOGY and needs PCP referral per insurance. Luke PeralesFormerly Vidant Roanoke-Chowan HospitalVoocte0520-37-34 14:08:35 Patient left requesting call back at 1346. I returned call and spoke to patient. Advised that Cardiology refilled his medication and made an appt for him to see Dr Mayorga this Friday. He expressed understanding and was appreciative of call. THUAN MathiasC Physician Opening Machine Cleaner, Cardiothoracic Surgery Office [phone] PA-PHYSICIAN CASINO FLOORPERSON MIDLEVEL PROVIDERSycamore Medical CenterEwlecf3965-20-01 09:21:35 Attempted to contact the patient but [...] Lasix will be sent to patients local [facility] pharmacy [facility]2024-05-14 09:07:12 Called patient. VM not set up. Unable to leave message. Review of chart shows he also has call in to Dr Mayorga. Dylon BONILLA PA-C Physician Opening Machine Cleaner, Cardiothoracic Surgery Office [phone] [facility]2024-05-13 16:54:50 Stop drinking soda, continue lasix. Schedule with me in clinic next available ( ok to overbook) [facility]2024-05-13 16:10:00 Copied from [facility] #[id number]. Topic: Clinical - Medical Advice >> September 08, 2023 4:07 PM Patient Beet Worker wrote: Cely Myers is a 68 year [...] to speak with a nurse Please advise [phone] (home) Isabel HinojosaSycamore Medical CenterVmadan9810-16-75 15:54:16 Spoke to the patient and he [...] be notified as well. Patient verbalized understanding. [facility] CenterKqfxgl4981-84-06 13:22:38 Copied from [facility] #[id number]. Topic: Clinical - Medical Advice >> September 08, 2023 1:22 PM Patient Beet Worker wrote: Cely Myers is a 68 year old male pt had cath procedure 07/[address] Paniagua saying for the last couple of weeks his ankles has been swelling and can hardly walk Please advise [facility] 14:55:23 Summary: [facility] [[email or web address] Specialty Pharmacy [facility] [[email or web address] Specialty Pharmacy Therapy Plan Cely Myers is a 68 year old y/o Black or male patient referred to the [facility] [[email or web address] Specialty Pharmacy for management of Dupixent and [...] hospitalization related to their specialty condition. The [facility] [[email or web address] Specialty Pharmacist has reviewed: The H&P, treatment [...] and then it needs to be refrigerated. [facility] [[email or web address] Specialty Pharmacy will dispense and mail out Dupixent Pen on 09/03/2023, patient will administer on 09/04/2023. The shipping address confirmed was [address] [place] [address]. A comprehensive Welcome Packet is accessible to all patients via the [facility] [[email or web address]] Specialty Pharmacy's website. For patients who may not have internet access, a printed copy is included with their medication shipment or provided during medication pick-up. Thank you, Marisela Van RPH [facility] [[email or web address] Specialty Pharmacy Marisela Van [facility] - Bkbwck7091-24-55 13:46:44 Images from the original note were [...] Rivera MD Last refill: 06/01/2023 Rx #: [id number] Urology: Benign Prostatic Hyperplasia Bxbjnz0208/28/2023 12:40 AM Protocol Details Valid encounter within last 12 months To be filled at: [facility]/pharmacy #[id number] - [place], [place] - [address] [place] [address] Last Refilled: 06/01/23 Recent Visits Date Type Provider Dept 02/19/23 Office Visit Junior Garcia NP [facility] Family Medicine 01/13/23 Office Visit Junior Garcia NP [facility] Family Medicine 10/21/22 Office Visit Abner Rivera MD [facility] Family Medicine 07/30/22 Office Visit Junior Garcia NP [facility] Family Medicine 05/07/22 Office Visit Junior Garcia NP [facility] Family Medicine 03/12/22 Office Visit Junior Garcia NP [facility] Family Medicine Showing recent visits within past 540 days with a meds authorizing provider and meeting all other requirements Future Appointments No visits were found meeting these conditions. Showing future appointments within next 150 days with a meds authorizing provider and meeting all other requirements Nicolle Haley [facility] CenterAfubrx6095-63-09 09:26:12 Images from the original note were not included. Routed to provider for review. Unable to refill per ambulatory refill guidelines. Notes: Name from pharmacy: PRAVASTATIN SODIUM 40 MG TAB Will file in chart as: PRAVASTATIN 40 mg tablet Sig: TAKE 1 TABLET BY MOUTH EVERYDAY AT BEDTIME Disp: 90 tablet Refills: 3 Start: 08/28/2023 Class: eRX For: Coronary artery disease involving kasaan coronary artery of kasaan heart without angina pectoris Last ordered: 1 year ago (07/30/2022) by Junior Garcia NP Last refill: 06/01/2023 Rx #: [id number] Cardiovascular: Antilipid - HMG-CoA Reductase Inhibitors Mqfkim8108/28/2023 12:40 AM Protocol Details Valid encounter within last 12 months Total Cholesterol within 360 days LDL within 360 days HDL within 360 days Triglycerides within 360 days AST in normal range and within 360 days ALT in normal range and within 360 days To be filled at: [facility]/pharmacy #[id number] Last Refilled: 06/01/23 Recent Visits Date Type Provider Dept 02/19/23 Office Visit Junior Garcia NP [facility] Family Medicine 01/13/23 Office Visit Junior Garcia NP [facility] Family Medicine 10/21/22 Office Visit Abner Rivera MD [facility] Family Medicine 07/30/22 Office Visit Junior Garcia NP [facility] 05/07/22 Office Visit Junior Garcia NP [facility] Family Medicine 03/12/22 Office Visit Junior Garcia NP [facility] Showing recent visits within past 540 days with a meds authorizing provider and meeting all other requirements Future Appointments No visits were found meeting these conditions. Showing future appointments within next 150 days with a meds authorizing provider and meeting all other requirements Nicolle Haley MASycamore Medical CenterZnmnmn4846-15-35 08:49:14 Images from the original note were not included. Medical records [facility], placed in Dr. Carranza folder for review. Joyce CrooksDaniel [place] 379444-03-22 10:54:17 TRANSITIONAL CARE MANAGEMENT ASSESSMENT 07/18/2023 Cely Myers [id number] Cely Myers is a 68 year old Black or male was admitted on 07/02/[address] He was discharged on 07/17/23 with discharge disposition of HR- Routine Discharge. Admitting Physician: Venita Mayorga Discharge Diagnosis: Coronary artery disease Linked Episodes Type: Episode: Status: Noted: Resolved: Last update: Updated by: TRANSITION OF CARE TCM Active 07/17/2023 07/18/2023 10:47 AM Cassius Deras, RN Comments: TCM Wgn-qesf-dk-face outreach documentation: Discharge Assessment Chart Assessed: 07/18/23 [...] been home?: N/A (Pt declined services with [facility] at this time. Pt states he [...] Phone 07/21/2023 8:45 AM Diandra Tillman MD [facility] [phone] 07/31/2023 2:15 PM [facility], Cardiovascular [facility] [phone] 08/21/2023 10:30 AM Ashwin Weir MD [facility] [phone] 10/16/2023 3:20 PM Tomeka Hoyos MD [facility] [phone] 11/24/2023 1:00 PM Naomie Doty MD [facility] Transplant Services, [facility] [phone] Cassius Deras RNDaniel [place] 379444-03-21 00:32:29 Problem: Discharge Planning Goal: Adequate for [...] airway Outcome: Progressing as expected Cooper Sorenson RNSycamore Medical CenterLlrtlf0705-72-04 20:55:52 A patient w/ normal wob. Richie Scott RTSycamore Medical CenterTsratf1284-08-02 10:28:38 Unable to Determine [facility] CenterRnkced6574-79-50 07:41:00 Problem: Discharge Planning Goal: Adequate for [...] Goal: Patent airway Outcome: Progressing as expected Tyree Lincoln RNSycamore Medical CenterOmjotj1356-34-25 00:59:15 Problem: Discharge Planning Goal: Adequate for [...] Goal: Patent airway Outcome: Progressing as expected [place] 588354-03-19 22:58:34 A patient w/ normal wob. [place] 588354-03-19 05:35:56 Problem: Discharge Planning Goal: Adequate for [...] of active bleeding Outcome: Progressing as expected [facility] Esther Riley RNSycamore Medical CenterVoeyie3660-58-75 05:23:57 Problem: Discharge Planning Goal: Adequate for [...] of active bleeding Outcome: Progressing as expected [facility]2024-03-16 22:42:44 Problem: Discharge Planning Goal: Adequate for [...] of active bleeding Outcome: Progressing as expected [facility] Tressa Nichols [facility] HospitalTshssc4997-32-07 17:42:12 Problem: Discharge Planning Goal: Adequate for [...] bleeding Outcome: Progressing as expected Misbah Lira [facility] HospitalHiuhaq6074-08-49 17:39:32 Problem: Discharge Planning Goal: Adequate for [...] of active bleeding Outcome: Progressing as expected [facility] CenterPpoung7767-80-69 04:12:16 Problem: Discharge Planning Goal: Adequate for [...] of active bleeding Outcome: Progressing as expected [facility] Steffen Sánchez [facility] HospitalHnmdeq6510-13-45 23:51:47 Problem: Discharge Planning Goal: Adequate for [...] of active bleeding Outcome: Progressing as expected [facility]2024-03-13 04:12:33 Problem: Discharge Planning Goal: Adequate for [...] bleeding Outcome: Progressing as expected Edward Sharpe RNUT - Ekjjzk3731-72-21 12:28:50 1230: Patients sister (Dylon) phoned and given an update and future room assignment. Tressa Moon [facility] - Cdrnzw4588-02-89 00:03:00 FACULTY SURGEON: Jt Alejandro MD RESIDENT SURGEON: CASINO FLOORPERSON OR TEACHING RESIDENT: Wayne Sotomayor MD PREOPERATIVE [...] the procedure well. MD ROBERT Epperson/LIBRA Chen#: [id number] [facility]2024-03-12 00:03:00 FACULTY SURGEON: Jt Alejandro MD RESIDENT SURGEON: CASINO FLOORPERSON OR TEACHING RESIDENT: Wayne Sotomayor MD PREOPERATIVE [...] tolerated the procedure well. MD ROBERT Epperson/LIBRA J#: [id number] [facility]2024-03-11 18:42:53 Problem: Discharge Planning Goal: Adequate for discharge Outcome: Progressing as expected Goal: Adequate to move to next level of care Outcome: Progressing as expected Goal: Knowledge of medication management Outcome: Progressing as expected Jesu Mclaughlin [facility] HospitalIyqcda9751-71-66 23:25:44 Problem: Discharge Planning Goal: Adequate for [...] bleeding Outcome: Progressing as expected Thu Chinchilla [facility] HospitalGmwnuu4129-95-11 11:30:48 Problem: Discharge Planning Goal: Adequate for [...] bleeding Outcome: Progressing as expected Cary Echeverria [facility] Euztpt0982-31-86 21:47:29 Problem: Discharge Planning Goal: Adequate for [...] in pain sensation Outcome: Progressing as expected [facility]2024-03-09 21:46:02 AV fistula Non functional/not in use Jama [facility] HospitalSqfwae7110-44-53 01:19:21 Problem: Discharge Planning Goal: Adequate for [...] of active bleeding Outcome: Progressing as expected [facility] Xu Olivarez [facility] HospitalRrtccv3613-19-70 17:57:10 Patient to floor right groin c/d/I. Dunham [facility] HospitalHidprp2825-93-20 23:10:35 Problem: Discharge Planning Goal: Adequate for [...] of active bleeding Outcome: Progressing as expected [facility] Tyron Dinh [facility] HospitalXhypiu2594-57-78 02:15:24 Problem: Discharge Planning Goal: Adequate for [...] of active bleeding Outcome: Progressing as expected [facility]2024-03-06 22:03:34 Patient transferred to [place] [address] for diagnosis of chest pain in adult, [...] ED. Report given to [facility] EMS personnel H CASHIER Christina Proctor [place] 627304-03-06 22:02:24 Nurse Report Report given to ALFREDO Mehta. Chief complaint, assessment findings, infusion verify and orders reviewed. Plan of care discussed with both nurses. Patient members verbalized understanding. Christina Proctor RN [place] 420174-03-06 21:12:[address] [facility]ulance ETA 30 min per Jerrod Cason [place] 578114-03-06 19:47:36 Pt arrived ambulatory with complaints on intermittent chest pain for the last few days. Pt reports it feels like the time he needed a stent in 2009. Pt reports fatigue, stiff neck. Pt called for a cardiology appt but decided to come to ED instead. 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 treatment: None Travel and Exposure Screening: Symptoms [...] N/A 10/17/2016 Surgeon: Cheri Mcintyre MD; Location: [facility] COLONOSCOPY N/A 11/07/2020 Surgeon: Jasmyne Roper MD; Location: [facility] OR Location LIVER BIOPSY 03/27/2004 NEPHRECTOMY 05/18/2004 Bilateral OPEN CHOLECYSTECTOMY N/A 09/28/2014 Surgeon: Ramon Landry MD; Location: [facility]ATION OTHER 04/26/2005 Drainage of fluid PARATHYROIDECTOMY PERCUTANEOUS NEPHROSTOMY TUBE PLACEMENT 04/29/2005 [place] PATIENT HAS A CORONARY ARTERY STENT TRANSURETHRAL PROSTATE VAPORIZATION N/A 02/12/2019 Surgeon: Williams Ashley MD; Location: [place] OR Location VOIDING CYSTOURETHROGRAM 02/08/2004 XR KUB [...] XR CHEST 1 VW Comp. Metabolic Panel ([id number]) Cbc with Diff Troponin I N-Terminal Pro-Bnp [...] Blair MD Authorized by: Sanket Blair MD Previous ECG: Previous ECG: Compared [...] [place], will tx Discussed with cardiology in [place] Heparin drip started Hospital Encounter on 07/02/23 [...] the past 24 hour(s)) -Comp. Metabolic Panel ([id number]): Collection Time: 07/02/23 7:55 PM Result Value [...] the past 24 hour(s)) -Comp. Metabolic Panel ([id number]): Collection Time: 07/02/23 7:55 PM Result Value [...] abnormality. Preliminary Report Dictated by Resident: Gricel Richard OTC drugs. Prescription drug management. Decision regarding [...] Electronically signed by: Sanket Blair MD 07/02/232053 [facility]2024-03-06 09:35:02 Spoke with patient. He states for [...] and to see if someone else can cloth picker his granddaughter. Patient verbalized understanding and states that if his symptoms get any worse he will go to the ER sooner rather than later. [facility] Breann Aburto RNSycamore Medical [id number] 09:28:18 Copied from [facility] #[id number]. Topic: Appointment - Schedule Appointment >> Jul 02, 2023 9:25 AM Patient Beet Worker wrote: Cely Myers is a 68 year old male Pt calling to schedule a sooner appt. with pt currently having chest pain, fatigue, pt states he feels like he is in afib. Escalted to cardiology chat. Call warm transferred to nurse Breann. Created for documentation. MartinezCritical access [id number] 15:00:42 Appointment scheduled 07/10. [facility]raySycamore Medical [id number] 08:18:57 Please schedule patient to follow-up appointment. Advise to bring all current medications for reconciliation. Thank you. [facility]2024-02-27 13:44:22 Routing to provider. [facility]2024-02-27 13:27:15 Copied from [facility] #[id number]. Topic: Clinical - Medical Advice >> Jun 24, 2023 1:19 PM [facility] wrote: Lexi Hart is stating that the xochitl vent will no longer be manufactured anymore and is wanting to know if provider can reach out to patient at the next office visit in June 2023. H CASHIER Andreina OconnorSycamore Medical [id number] 09:17:17 Medical records placed in to be scanned folder. [place] [id number] 11:17:21 Please advise patient to keep all appts, continue with plan of care, and complete all labs prior to future appt. Thank you. [place] [id number] 08:26:28 Images from the original note were not included. [facility] Joyce CrooksDaniel Ville [id number] 11:00:00 Images from the original note were not included. Patient has been identified by and name and was provided with cup, antiseptic towelette, and clean catch instructions. 1 urine specimen(s) sent. Unpreserved 1 Urine Culture Aptima tube Other urine [place] [id number] 11:30:00 Images from the original note were not included. Venipuncture collection performed by clean technique on the right anticubitus. Total of 1 attempts were made. Slight pressure and a bandage/dressing were applied to the site(s). The patient experienced no complications. The following specimens were processed according to instructions and sent to [facility] [[email or web address]] laboratories per lab order on 05/23/2023 : [...] 2 Urine Culture Aptima tube Other urine [place] [id number] 17:20:50 Rx sent, let patient know, and to follow-up as scheduled. [facility]2023-12-28 10:33:11 Spoke with pharmacy, insurance will only pay if two different prescription will be sent. We tried to do 200 mg 4 tab twice a day but insurance will not cover. Please send prescription listed below. 300 mg 1 tab twice a day 100 mg 1 tab twice a day [place] [id number] 10:13:41 Cely Myers is a 68 year old male Coretta from [facility] is calling stating they are on back order for (labetaloL 200 mg tablet) they are needing pcp to change the prescription to 100 mg instead of 200mg. States pt is out of med. Please advise Thank you [facility]/pharmacy #[id number] [address] [facility] Rosa Elena LoyaSycamore Medical [id number] 10:03:37 [facility] providers sent clinical summary. Placed in providers folder for review. Kellen Osuna RNSycamore Medical [id number] 09:30:00 Images from the original note were not included. Venipuncture collection performed by clean technique on the right anticubitus. Total of 1 attempts were made. Slight pressure and a bandage/dressing were applied to the site(s). The patient experienced no complications. The following specimens were processed according to instructions and sent to [facility] [[email or web address] laboratories per lab order on 11/22/2022 : LT BLUE SST 1 RED LAV 2 PPT 2 DK GREEN (LiHep) DK GREEN (SodH) ROCHA DK BLUE (K2) DK BLUE (S) ACD Blood Culture NIPT/NTD Patient has been identified by and name and was provided with cup, antiseptic towelette, and clean catch instructions. 2 urine specimen(s) sent. Unpreserved 2 Urine Culture Aptima tube Other urine [facility] [id number] 10:41:23 Placed in providers folder for review Kellen Osuna RNSycamore Medical [id number] 10:11:38 Schneider faxed over clinical summary in provider box Mayra LiraSycamore Medical Center
[2025-01-23 18:05] LABS: Troponin High Sensitivity 76.8 pg/mL (<58.9)
[2025-01-23 18:17] LABS: Influenza A Ag Negative; Influenza B Ag Negative
[2025-01-23 18:18] LABS: SARS-CoV-2 Antigen Rapid Res Negative (Negative)
--- NOTE | 2025-01-23 18:31 | RAD REPORT ---
EXAMINATION: ONE VIEW CHEST XR CLINICAL INDICATION: Male, 69 years old.,FEVER TECHNIQUE: Frontal chest projection is submitted. Examination is limited by patient positioning and t echnique. COMPARISON: 05/11/2024. FINDINGS: The lungs are well inflated and clear, apart from mild central interstitial prominence. No pneumotho rax or sizable effusion. The heart is moderately enlarged in size. Mediastinal contours are unchanged with sequelae of median sternotomy. IMPRESSION: Stable findings as above.
--- NOTE | 2025-01-23 18:35 | EDPHYS ---
Physician Documentation [facility] Name: John Myers Age: 69 yrs Sex: Male : 1955 Arrival Date: 01/23/2025 Time: 17:07 Bed 3 Private MD: ED Physician Timothy Martinez HPI: 01/23 17:21 This 69 yrs old Black Male presents to ER via Unassigned with complaints of Pulled out sp3 fritz catheter. 17:21 69-year-old male with history of hypertension, renal cancer status post renal sp3 transplant with transplanted kidney now also cancerous, prior OH, indwelling Fritz now presents via EMS for chief complaint altered mental status and patient pulled out his Fritz catheter. Patient has also been generally weak over the last several days. Patient thinks it is 1954 therefore ROS, history and physical limited secondary to altered mental status.. Historical: - Allergies: 17:10 No Known Allergies; nh2 - PMHx: 17:09 Hypertensive disorder; kidney issues; Myocardial infarction; nh2 - PSHx: 17:09 CABG; kidney transplant; old dialysis access LUE; nh2 - Immunization history:: Adult Immunizations unknown. - Infectious Disease History:: Denies. - Social history:: Smoking status: Patient denies any tobacco usage or history of. ROS: 17:24 Unable to obtain ROS due to altered mental status, sp3 21:03 Constitutional: Full ROS not available secondary to dementia sp4 21:03 All other systems are negative, Exam: 17:24 Head/Face: Normocephalic, atraumatic. Eyes: Pupils equal round and reactive to light, sp3 extra-ocular motions intact. Lids and lashes normal. Conjunctiva and sclera are non-icteric and not injected. Cornea within normal limits. Periorbital areas with no swelling, redness, or edema. Neck: Trachea midline, no thyromegaly or masses palpated, and no cervical lymphadenopathy. Supple, full range of motion without nuchal rigidity, or vertebral point tenderness. No Meningismus. Chest/axilla: Normal chest wall appearance and motion. Nontender with no deformity. No lesions are appreciated. Cardiovascular: Regular rate and rhythm with a normal S1 and S2. No gallops, murmurs, or rubs. Normal PMI, no JVD. No pulse deficits. Respiratory: Lungs have equal breath sounds bilaterally, clear to auscultation and percussion. No rales, rhonchi or wheezes noted. No increased work of breathing, no retractions or nasal flaring. Back: No spinal tenderness. No costovertebral tenderness. Full range of motion. Skin: Warm, dry with normal turgor. Normal color with no rashes, no lesions, and no evidence of cellulitis. MS/ Extremity: Pulses equal, no cyanosis. Neurovascular intact. Full, normal range of motion. 17:24 Abdomen/GI: Third kidney palpable. Abdomen is soft., 17:24 Neuro: Grossly no focal deficits. Patient is oriented to person and place but not time., 18:38 ECG was reviewed by the Attending Physician. EKG demonstrates sinus tachycardia with sp3 right bundle branch block and nonspecific ST/T changes. Vital Signs: 17:07 BP 167 / 98; Pulse 108; Resp 20 S; Temp 100.4(O); Pulse Ox 100% on R/A; aa5 17:07 Weight 79.83 kg (M); Height 5 ft. 10 in. (R); aa5 17:45 BP 164 / 87; Pulse 103; Resp 22 S; Temp 103(Ca); Pulse Ox 100% on R/A; aa5 18:08 BP 151 / 88; Pulse 109; Resp 22 S; Temp 104.0(Ca); Pulse Ox 100% on R/A; aa5 18:25 BP 134 / 77; Pulse 98; Resp 26 S; Temp 104.0(Ca); Pulse Ox 100% on R/A; aa5 18:34 BP 164 / 84; Pulse 101; Resp 24 S; Temp 103.8(Ca); Pulse Ox 100% on R/A; aa5 19:55 BP 107 / 59; Pulse 87; Resp 22; Temp 101.4; Pulse Ox 100% on R/A; Pain 0/10; zm 21:04 BP 133 / 71; Pulse 89; Resp 16; Temp 100.8(Ca); Pulse Ox 100% ; Pain 0/10; bm8 17:07 Body Mass Index 25.25 (79.83 kg, 177.8 cm) aa5 19:55 Pain Scale: Adult zm 21:04 Pain Scale: Adult bm8 18:08 MD was notified of elevated temperature. aa5 [place] Coma Score: 19:52 Eye Response: to voice(3). Motor Response: obeys commands(6). Verbal Response: bm8 confused(4). Total: 13. 21:04 Eye Response: to voice(3). Motor Response: obeys commands(6). Verbal Response: bm8 confused(4). Total: 13. MDM: 17:09 Medical Screening Exam initiated sp3 17:25 Data reviewed: vital signs, nurses notes, old medical records, lab test result(s), EKG, sp3 radiologic studies. ED course: 69-year-old male with PMH above now with altered mental status, fever and indwelling Fritz catheter having been removed by patient. Differential diagnosis includes UTI/pyelonephritis spectrum, viral illness, other intra-abdominal pathology, pneumonia, among others. Workup will include EKG, chest x-ray, general labs, cultures, UA, viral swabs and general supportive care. Prophylactic antibiotics already started. Patient is activated as a sepsis alert and therefore 30 mL/kg fluids also have been ordered. Will reassess as needed.. 18:27 ED course: Sepsis fluid bolus stopped given lactate 1.0, patient not hypotensive and sp3 BNP actually elevated.. 21:03 ED course: FINDINGS: The lack of intravenous contrast limits the sensitivity of this sp4 exam for evaluation of solid visceral organs, vascular structures, and retroperitoneum. Chest: LOWER NECK/CHEST WALL: Visualized thyroid gland and soft tissues are normal. LUNGS AND AIRWAYS: Airways are clear. No evidence of airspace or interstitial process. No nodules. PLEURA: No pleural effusion. No pneumothorax. Hemidiaphragms are normally positioned. MEDIASTINUM AND LYMPH NODES: No mediastinal mass or fluid collection. Normal size mediastinal, hilar, and axillary lymph nodes. THORACIC AORTA: Normal caliber and configuration. PULMONARYARTERIES: Normal caliber. HEART: Unremarkable. Abdomen/Pelvis LIVER: Normal in size and contour. No focal lesion. GALLBLADDER/BILE DUCTS: No biliary ductal dilatation. PANCREAS: No mass, ductal dilation, or lora-pancreatic fluid. SPLEEN: Normal size. No focal lesion. ADRENALS: Normal; no mass. KIDNEYS AND URETERS: Status post bilateral nephrectomies of the [place] kidneys. Right pelvic renal transplant in stable configuration with moderate dilation of the renal pelvis and calyces. Fat-containing mass at the renal pelvis and lower segment measures 6.8 x 8.6 cm in greatest axial dimensions, and 11.5 cm in greatest craniocaudal extent, stable. GASTROINTESTINAL TRACT: Stomach is non-dilated. Small bowel has normal course and caliber. No colonic wall thickening or pericolonic inflammatory changes. PERITONEUM: No free fluid. LYMPH NODES: No lymphadenopathy. ABDOMINAL AORTA AND OTHER VESSELS: Normal caliber aorta and IVC. URINARYBLADDER: Decompressed with Fritz catheter in place. REPRODUCTIVE ORGANS: No pathologic process. MUSCULOSKELETAL: No acute or suspicious osseous abnormality. ADDITIONAL FINDINGS: None IMPRESSION: Stable moderate hydronephrosis of the right pelvic renal transplant, with stable fat-containing mass opposite the renal pelvis since 12/22/2024. No other acute findings. . 21:04 Differential Diagnosis: electrolyte abnormality, hypoglycemia, pneumonia, sepsis, UTI. sp4 Consideration of Admission/Observation Escalation of care including admission/observation considered. ED course: Admitting service requested CT abdomen and pelvis to evaluate for right lower abdominal mass. CT pelvis revealed stable hydronephrosis of the right pelvic renal transplant with stable fat-containing mass absent renal pelvis since 12/22/2024. No acute findings. Patient was admitted in stable condition.. 01/23 17:10 Order name: BNP; Complete Time: 18: [facility] 01/23 17:10 Order name: Blood Culture Adult (2) 01/23 17:10 Order name: CBC with Diff; Complete Time: 18:26 [facility] 01/23 17:10 Order name: CMP; Complete Time: 18:26 [facility] 01/23 17:10 Order name: Lactate w/ 2H reflex if indic.; Complete Time: 18:26 01/23 17:10 Order name: Protime (+inr); Complete Time: 18:26 01/23 17:10 Order name: Ptt, Activated; Complete Time: 18:26 [facility] 01/23 17:10 Order name: Troponin HS; Complete Time: 18:26 [facility] 01/23 17:10 Order name: UA Rfx Lenard Cult if indicated; Complete Time: 18:26 [facility] 01/23 17:26 Order name: COVID-19 Ag + Flu A+B Ag; Complete Time: 18: 01/23 18:08 Order name: Urine Culture EDMS 01/23 21:09 Order name: Basic Metabolic Panel EDMS 01/23 21:09 Order name: Basic Metabolic Panel EDMS 01/23 21:09 Order name: Basic Metabolic Panel EDMS 01/23 21:09 Order name: Basic Metabolic Panel EDMS 01/23 21:09 Order name: CBC with Automated Diff EDMS 01/23 21:09 Order name: CBC with Automated Diff EDMS 01/23 21:09 Order name: CBC with Automated Diff EDMS 01/23 21:09 Order name: CBC with Automated Diff EDMS 01/23 21:09 Order name: Troponin High Sensitivity EDMS 01/23 21:09 Order name: Troponin High Sensitivity EDMS 01/23 21:09 Order name: Troponin High Sensitivity EDMS 01/23 21:09 Order name: Troponin High Sensitivity EDMS 01/23 21:09 Order name: Troponin High Sensitivity; Complete Time: 02:08 EDMS 01/23 17:10 Order name: Chest Single View XRAY; Complete Time: 18:35 sp3 01/23 19:17 Order name: CT Chest Abdomen Pelvis W/O Contrast; Complete Time: 02:08 sp4 01/23 21:09 Order name: EKG Electrocardiogram EDAL 01/23 21:09 Order name: EKG Electrocardiogram EDAL 01/23 21:09 Order name: EKG Electrocardiogram EDAL 01/23 21:09 Order name: EKG Electrocardiogram [facility] 01/23 17:10 Order name: Cardiac monitoring; Complete Time: 17:34 sp3 01/23 17:10 Order name: EKG - Nurse/Tech; Complete Time: 17:34 sp3 01/23 17:10 Order name: IV Saline Lock - Large Bore; Complete Time: 17:34 sp3 01/23 17:10 Order name: Labs collected and sent; Complete Time: 17:34 sp3 01/23 17:10 Order name: O2 Per Protocol; Complete Time: 17:34 sp3 01/23 17:10 Order name: O2 Sat Monitoring; Complete Time: 17:34 sp3 01/23 17:10 Order name: Vital Signs; Complete Time: 17:34 sp3 01/23 17:10 Order name: Fritz; Complete Time: 17:34 sp3 01/23 19:07 Order name: EKG Strip; Complete Time: 19:26 sp4 Administered Medications: 18:30 Discontinued: ns 0.9% (30 ml/kg) 30 ml/kg IV at bolus once; Sepsis Protocol; to be aa5 given as a bolus over 90 minutes 17:58 Drug: Acetaminophen PO 1000 mg PO once Route: PO; aa5 18:36 Follow up: Response: No adverse reaction aa5 17:58 Drug: NS 0.9% IV (30 ml/kg) 30 ml/kg IV at bolus once; Sepsis Protocol; to be given as aa5 a bolus over 90 minutes Route: IV; Rate: bolus; Site: right wrist; 18:30 Follow up: IV Status: Order to discontinue infusion; IV Intake: 900ml aa5 18:00 Drug: Cefepime IVPB 1 grams IVPB at 200 ml/hr once over 30 mins; (mix in NS 100 mL) aa5 Route: IVPB; Rate: 200 ml/hr; Infused Over: 30 mins; Site: right wrist; 18:10 Follow up: Response: No adverse reaction aa5 18:30 Follow up: IV Status: Completed infusion; IV Intake: 100ml aa5 18:50 Drug: vancoMYCIN IVPB 1 grams IVPB once over 2 hrs Route: IVPB; Infused Over: 2 hrs; aa5 Site: right wrist; 21:05 Follow up: Response: No adverse reaction; IV Status: Completed infusion bm8 Disposition Summary: 01/23/25 18:35 Hospitalization Ordered Notes: Hospitalization Status: Inpatient Admission sp3 Provider: Tyron Matamoros Location: Telemetry/[facility] (Inpatient) sp3 Condition: Stable sp3 Problem: an acute exacerbation sp3 Symptoms: have worsened sp3 Bed/Room Type: Standard sp3 Room Assignment: 404(01/23/25 20:55) rv1 Diagnosis - Urosepsis, UTI, fever sp3 Forms: - Medication Reconciliation Form sp3 - SBAR form sp3 - Leadership Thank You Letter sp3 Signatures: Dispatcher [employer] Alva Saenz RN RN aa5 Vernon Hawley MD MD sp3 Stephanie Roland rv1 Timothy Martinez MD MD sp4 Cory Martinez Jr, RN RN nh2 Jevon Hernandez RN bm8 Corrections: (The following items were deleted from the chart) 17:10 17:10 PROBNP+C.LAB.BRZ ordered. EDMS EDMS 17:10 17:10 BLOOD CULTURE*+BA.LAB.BRZ ordered. EDMS EDMS 17:10 17:10 CBC+H.LAB.BRZ ordered. EDMS EDMS 17:10 17:10 COMPREHENSIVE METABOLIC PANEL+C.LAB.BRZ ordered. EDMS EDMS 17:10 17:10 LACTATE+C.LAB.BRZ ordered. EDMS EDMS 17:10 17:10 PROTIME (+INR)+COAG.LAB.BRZ ordered. EDMS EDMS 17:10 17:10 PTT, ACTIVATED+COAG.LAB.BRZ ordered. EDMS EDMS 17:10 17:10 Troponin High Sensitivity+C.LAB.BRZ ordered. EDMS EDMS 17:10 17:10 UA Rfx Lenard Cult if indicated+U.LAB.BRZ ordered. EDMS EDMS 17:10 17:10 Chest Single View+RAD.RAD.BRZ ordered. EDMS EDMS 20:55 18:35 sp3 rv1
--- NOTE | 2025-01-23 18:35 | ER ---
Nurse's Notes [facility] Name: John Myers Age: 69 yrs Sex: Male : 1955 Arrival Date: 01/23/2025 Time: 17:07 Bed 3 Private MD: Diagnosis: Urosepsis, UTI, fever Presentation: 01/23 17:07 Chief complaint: EMS states: Grandson stated pt was confused and noted Durant catheter aa5 was no longer in place. 17:07 Coronavirus screen: fever. Ebola Screen: Patient denies travel to an Ebola-affected [facility] area in the 21 days before illness onset. Initial Sepsis Screen: Does the patient meet any 2 criteria? Altered Mental Status. HR > 90 bpm. Does the patient have a suspected source of infection?. Risk Assessment: Do you want to hurt yourself or someone else? Patient reports no desire to harm self or others. 17:07 Method Of Arrival: EMS: [facility] aa5 17:07 Acuity: DON 2 aa5 17:07 Onset of symptoms was January 23, 2025. aa5 Historical: - Allergies: 17:10 No Known Allergies; nh2 - PMHx: 17:09 Hypertensive disorder; kidney issues; Myocardial infarction; nh2 - PSHx: 17:09 CABG; kidney transplant; old dialysis access LUE; nh2 - Immunization history:: Adult Immunizations unknown. - Infectious Disease History:: Denies. - Social history:: Smoking status: Patient denies any tobacco usage or history of. Screenin:10 [facility] ED Fall Risk Assessment (Adult) History of falling in the last 3 months, aa5 including since admission Confusion or Disorientation Yes (5 pts) Intoxicated or Sedated Impaired Gait Mobility Assist Device Used Altered Elimination Score/Fall Risk Level 3 or more points = High Risk Oriented to surroundings, Maintained a safe environment, Educated pt \T\ family on fall prevention, incl call for assistance when getting out of bed, Assessed \T\ reinforced patient's understanding of fall precautions. Abuse screen: Denies threats or abuse. Nutritional screening: No deficits noted. Tuberculosis screening: No symptoms or risk factors identified. Assessment: 17:07 General: Appears ill, Behavior is calm, cooperative, Reports feeling ill for 0-12 aa5 hours. Pain: Denies pain. Neuro: Level of Consciousness is awake, obeys commands, confused, Oriented to person, place, Online Advertising Manager are weak bilaterally Moves all extremities. Speech is normal, Facial symmetry appears normal. Cardiovascular: Heart tones S1 S2 present Edema is absent. Rhythm is regular Dialysis shunt: in the left arm, with palpable thrill, with auscultated bruit, with no erythema, with no edema, no bleeding noted. Respiratory: Airway is patent Respiratory effort is even, unlabored, Respiratory pattern is regular, symmetrical, Breath sounds are clear bilaterally. GI: Abdomen is round non-distended, Bowel sounds present X 4 quads. Abd is soft and non tender X 4 quads. : EMS reports pt possibly pulled out his Durant catheter as reported by pt's grandson. EENT: Oral mucosa is dry. Derm: Skin is dry, Skin is pale, Skin temperature is hot. Musculoskeletal: Range of motion: intact in all extremities. 19:52 Reassessment: Patient appears in no apparent distress at this time. Patient and/or bm8 family updated on plan of care and expected duration. Pain level reassessed. Patient is alert, oriented x 3, equal unlabored respirations, skin warm/dry/pink. General: Appears in no apparent distress. comfortable, Behavior is calm, cooperative, drowsy. Pain: Denies pain. Neuro: unable to assess neuro at this time due to pt sleeping. Cardiovascular: Heart tones S1 S2 present Capillary refill < 3 seconds in bilateral fingers Patient's skin is warm and dry. Respiratory: Airway is patent Respiratory effort is even, unlabored, Respiratory pattern is regular, symmetrical, Breath sounds are clear bilaterally. GI: No deficits noted. No signs and/or symptoms were reported involving the gastrointestinal system. : Durant in place to gravity drainage. EENT: No deficits noted. No signs and/or symptoms were reported regarding the EENT system. Musculoskeletal: No signs and/or symptoms reported regarding the musculoskeletal system. 21:04 Reassessment: Patient appears in no apparent distress at this time. No changes from bm8 previously documented assessment. Patient and/or family updated on plan of care and expected duration. Pain level reassessed. Patient is alert, oriented x 3, equal unlabored respirations, skin warm/dry/pink. Patient denies pain at this time. Patient states feeling better. Patient states symptoms have improved. Vital Signs: 17:07 BP 167 / 98; Pulse 108; Resp 20 S; Temp 100.4(O); Pulse Ox 100% on R/A; aa5 17:07 Weight 79.83 kg (M); Height 5 ft. 10 in. (R); aa5 17:45 BP 164 / 87; Pulse 103; Resp 22 S; Temp 103(Ca); Pulse Ox 100% on R/A; aa5 18:08 BP 151 / 88; Pulse 109; Resp 22 S; Temp 104.0(Ca); Pulse Ox 100% on R/A; aa5 18:25 BP 134 / 77; Pulse 98; Resp 26 S; Temp 104.0(Ca); Pulse Ox 100% on R/A; aa5 18:34 BP 164 / 84; Pulse 101; Resp 24 S; Temp 103.8(Ca); Pulse Ox 100% on R/A; aa5 19:55 BP 107 / 59; Pulse 87; Resp 22; Temp 101.4; Pulse Ox 100% on R/A; Pain 0/10; zm 21:04 BP 133 / 71; Pulse 89; Resp 16; Temp 100.8(Ca); Pulse Ox 100% ; Pain 0/10; bm8 17:07 Body Mass Index 25.25 (79.83 kg, 177.8 cm) aa5 19:55 Pain Scale: Adult zm 21:04 Pain Scale: Adult bm8 18:08 MD was notified of elevated temperature. aa5 Helena Coma Score: 19:52 Eye Response: to voice(3). Motor Response: obeys commands(6). Verbal Response: bm8 confused(4). Total: 13. 21:04 Eye Response: to voice(3). Motor Response: obeys commands(6). Verbal Response: bm8 confused(4). Total: 13. ED Course: 17:07 Arm band placed on Patient placed in an exam room, on a stretcher. nh2 17:07 Patient has correct armband on for positive identification. Placed in gown. Bed in low aa5 position. Call light in reach. Side rails up X2. Client placed on continuous cardiac and pulse oximetry monitoring. NIBP monitoring applied. bus driver/monitor on. Pulse ox on. NIBP on. 17:09 Patient arrived in ED. em1 17:09 Vernon Hawley MD is Attending Physician. sp3 17:15 Inserted saline lock: 18 gauge in right antecubital area, using aseptic technique. aa5 Flushed with 10 mL NS. 17:20 First set of blood cultures drawn by me. aa5 17:25 EKG done, by quality lab technician. reviewed by Vernon Hawley MD. aa5 17:30 Initial lab(s) drawn, by me, sent to lab. Second set of blood cultures drawn by me. aa5 17:35 Inserted saline lock: 18 gauge in right wrist, using aseptic technique. Flushed with 10 aa5 mL NS. 17:40 Durant cath inserted, using sterile technique, 16 Fr., by park worker, balloon inflated, to aa5 gravity drainage, urine specimen collected. Patient tolerated well. 17:45 Alva Rivera, RN is Primary Nurse. aa5 17:49 Triage completed. aa5 18:01 Chest Single View XRAY In Process Unspecified. EDMS 18:05 Notified ED physician of a critical lab result(s). troponin 76.8. ll1 18:15 No provider procedures requiring assistance completed. aa5 18:34 Tyron Matamoros MD is Hospitalizing Provider. sp3 19:05 Report given to Jessenia RN and Jevon RN. aa5 19:07 Attending Physician role handed off by Vernon Hawley MD sp4 19:07 Timothy Martinez MD is Attending Physician. sp4 19:43 CT Chest Abdomen Pelvis W/O Contrast In Process Unspecified. EDMS 21:04 Provided Education on: need for admission. bm8 21:04 Patient admitted, IV remains in place. bm8 Administered Medications: 18:30 Discontinued: ns 0.9% (30 ml/kg) 30 ml/kg IV at bolus once; Sepsis Protocol; to be aa5 given as a bolus over 90 minutes 17:58 Drug: Acetaminophen PO 1000 mg PO once Route: PO; aa5 18:36 Follow up: Response: No adverse reaction aa5 17:58 Drug: NS 0.9% IV (30 ml/kg) 30 ml/kg IV at bolus once; Sepsis Protocol; to be given as aa5 a bolus over 90 minutes Route: IV; Rate: bolus; Site: right wrist; 18:30 Follow up: IV Status: Order to discontinue infusion; IV Intake: 900ml aa5 18:00 Drug: Cefepime IVPB 1 grams IVPB at 200 ml/hr once over 30 mins; (mix in NS 100 mL) aa5 Route: IVPB; Rate: 200 ml/hr; Infused Over: 30 mins; Site: right wrist; 18:10 Follow up: Response: No adverse reaction aa5 18:30 Follow up: IV Status: Completed infusion; IV Intake: 100ml aa5 18:50 Drug: vancoMYCIN IVPB 1 grams IVPB once over 2 hrs Route: IVPB; Infused Over: 2 hrs; aa5 Site: right wrist; 21:05 Follow up: Response: No adverse reaction; IV Status: Completed infusion bm8 Medication: 18:14 VIS not applicable for this client. aa5 Intake: 18:30 IV: 900ml; Total: 900ml. aa5 18:30 IV: 100ml; Total: 1000ml. aa5 Outcome: 18:35 Decision to Hospitalize by Provider. sp3 21:04 Admitted to Tele accompanied by nurse, via stretcher, room 404, with chart, bm8 21:04 Condition: stable 21:04 Instructed on follow up and referral plans. the need for admit, Demonstrated understanding of follow-up care, medications, 21:45 Patient left the ED. zm Signatures: Dispatcher [employer] EDMS Von Langston em1 Alva Rivera RN RN aa5 Nicci Reddy RN RN ll1 Vernon Hawley MD MD sp3 Jessenia Langston RN RN zm Timothy Martinez MD MD sp4 Jevon Hernandez RN RN bm8 Cory Martinez Jr, RN RN nh2 Corrections: (The following items were deleted from the chart) 18:14 18:08 BP 151 / 88; Pulse 109bpm; Resp 22bpm; Spontaneous; Pulse Ox 100% RA; Temp 104.0F aa5 Catheter; aa5
[2025-01-23] MEDS ORDERED: VANCOMYCIN 1 GM/VIAL ONE (18:41)
--- NOTE | 2025-01-23 19:58 | RAD REPORT ---
EXAM: CT CHEST, ABDOMEN AND PELVIS WITHOUT CONTRAST CLINICAL INDICATION: Male, 69 years old. [facility] MAIN ABDOMINAL DISTENTION Bed Name: 3 TECHNIQUE: CT chest, abdomen and pelvis was performed, without IV contrast, as per department protoco l. Axial, sagittal and coronal reconstructions were obtained. One or more of the following dose reduction techniques were used: Automated exposure control, adjustment of the mA and/or kV according to the patient size, and/or iterative reconstruction. Unless otherwise specified, incidental findings do not require dedicated imaging follow-up. COMPARISON: No prior exam. FINDINGS: The lack of intravenous contrast limits the sensitivity of this exam for evaluation of solid visceral organs, vascular structures, and retroperitoneum. Chest: LOWER NECK/CHEST WALL: Visualized thyroid gland and soft tissues are normal. LUNGS AND AIRWAYS: Airways are clear. No evidence of airspace or interstitial process. No nodules. PLEURA: No pleural effusion. No pneumothorax. Hemidiaphragms are normally positioned. MEDIASTINUM AND LYMPH NODES: No mediastinal mass or fluid collection. Normal size mediastinal, hilar, and axillary lymph nodes. THORACIC AORTA: Normal caliber and configuration. PULMONARY ARTERIES: Normal caliber. HEART: Unremarkable. Abdomen/Pelvis LIVER: Normal in size and contour. No focal lesion. GALLBLADDER/BILE DUCTS: No biliary ductal dilatation. PANCREAS: No mass, ductal dilation, or lora-pancreatic fluid. SPLEEN: Normal size. No focal lesion. ADRENALS: Normal; no mass. KIDNEYS AND URETERS: Status post bilateral nephrectomies of the [place] kidneys. Right pelvic renal tr ansplant in stable configuration with moderate dilation of the renal pelvis and calyces. Fat-containing mass at the renal pelvis and lower segment measures 6.8 x 8.6 cm in greatest axial dim ensions, and 11.5 cm in greatest craniocaudal extent, stable. GASTROINTESTINAL TRACT: Stomach is non-dilated. Small bowel has normal course and caliber. No colonic wall thickening or pericolonic inflammatory changes. PERITONEUM: No free fluid. LYMPH NODES: No lymphadenopathy. ABDOMINAL AORTA AND OTHER VESSELS: Normal caliber aorta and IVC. URINARY BLADDER: Decompressed with Durant catheter in place. REPRODUCTIVE ORGANS: No pathologic process. MUSCULOSKELETAL: No acute or suspicious osseous abnormality. ADDITIONAL FINDINGS: None IMPRESSION: Stable moderate hydronephrosis of the right pelvic renal transplant, with stable fat-containing mass opposite the renal pelvis since 12/22/2024. No other acute findings.
[2025-01-23] MEDS ORDERED: NITROGLYCERIN 0.4 MG/TAB SL PRN (21:00)
[2025-01-23] MEDS: HEPARIN 5000 UNIT/ML 1 ML VIAL SQ ONE (21:34)
--- NOTE | 2025-01-23 21:45 | P.HP ---
Certification for Inpatient Patient admitted to: Inpatient With expected LOS: >2 Midnights Patient will require the following post-hospital care: None Practitioner: I am a practitioner with admitting privileges, knowledge of patient current condition, hospital course, and medical plan of care. Services: Services provided to patient in accordance with Admission requirements found in Title 42 Section 412.3 of the Code of Federal Regulations Patient History Date of Service: 01/23/25 Reason for admission: Sepsis due to UTI. Elevated troponin, KATLYN. History of Present Illness: Patient is a [id number] male with past medical history of essential hypertension, chronic kidney disease, myocardial infarction, renal cancer status post renal transplant with transplanted kidney now also cancerous, hypercholesteremia, obstructive sleep apnea, BPH with LUTS, hep C, indwelling Durant catheter, lacunar infarction 06/03/19, diastolic CHF, brought into the ER to day due to altered mental status, and pulled out his Durant catheter according to grandson. Patient grandson states that patient became disoriented today, and pulled out his Durant catheter. Patient work up in the ER sepsis due to UTI, KATLYN, initial troponin 76.8, repeat 84.2. Patient not able to provide any pertinent history at this time due to his mentation, my H&P is based on report received from ER Dr. Hawley, and patient EMR. Since patient troponin was elevated, and patient has history of myocardial infarction with CABG, and patient not able to provide compressive information at this time, went ahead and initiated heparin infusion, and will consult auto research engineer. Course in ER. (1) chest x-ray. Impression: Stable findings with no acute process. (2) CT chest, abdomen, and pelvis without contrast. Impression: Stable moderate hydronephrosis of the right pelvic renal transplant. With stable fat- containing mass opposite the renal pelvis since 12/22/24. No other acute findings. Allergies No Known Allergies Allergy (Verified 06/29/22 21:09) Home Medications: Ezetimibe [Zetia*] 10 mg PO DAILY 06/29/22 Labetalol HCl [Trandate] 200 mg PO BID 06/29/22 Pravastatin [Pravachol*] 40 mg PO BEDTIME 06/29/22 Tacrolimus 20 mg PO Q12H 06/29/22 Tamsulosin [Flomax*] 0.8 mg PO DAILY 06/29/22 allopurinoL [Allopurinol] 100 mg PO DAILY 06/29/22 lisinopriL [Lisinopril] 10 mg PO DAILY 06/29/22 mycophenolate mofetiL [Mycophenolate Mofetil] 500 mg PO BID 06/29/22 predniSONE [Prednisone*] 5 mg PO DAILY 06/29/22 Furosemide 20 mg PO BID 05/11/24 Mirtazapine 7.5 mg PO BEDTIME 05/11/24 Sucralfate [Carafate*] 1 gm PO QID 05/11/24 Amlodipine [Norvasc*] 10 mg PO DAILY #30 tab 05/19/24 Aspirin Chewable [Aspirin Chewable*] 81 mg PO DAILY #30 tab.chew 05/19/24 Fluticasone Propionate [Flovent Hfa] 12 gm IH BID #0 05/19/24 Ticagrelor [Brilinta*] 90 mg PO BID #60 tab 05/19/24 - Past Medical/Surgical History Diabetic: No -: HTN -: CAD. Diastolic CHF. LVH. -: HLD -: CKD III sp Renal Transplant ([facility]). Immunosuppression. -: ANG. Pulmonary nodules. -: Nephrolithiasis of transplanted kidney -: BPH with LUTS -: Gout -: HCV -: Hx Syphilis -: Lacunar infarct 06-03-19 -: PreDM -: AVF -: Nephrectomy -: Parathyroidectomy -: CAD stent -: Cholecystectomy -: kidney transplant - Family History Family History: Reviewed- Non-Contributory (Patient is not able to provide any family history at this time) - Social History Alcohol use: Yes CD- Drugs: No Place of Residence: Home Review of Systems is unable to be obtained (Unable to complete review of system at this time due to patient mentation.) Physical Examination - Physical Exam General: Alert, Oriented x1, Cooperative HEENT: Atraumatic, Normocephalic, PERRLA, Mucous membr. moist/pink, Sclerae nonicteric Neck: Supple, 2+ carotid pulse no bruit, No LAD, Without JVD or thyroid abnormality Respiratory: Clear to auscultation bilaterally, Normal air movement Cardiovascular: Normal pulses, Regular rate/rhythm, Normal S1 S2, No gallops, No rubs, Systolic murmur Capillary refill: <2 Seconds Gastrointestinal: Normal bowel sounds, Hypoactive, Soft and benign, Non- distended, No ascites, No tenderness, No masses, No rebound, No guarding Musculoskeletal: No clubbing, No contractures, No warmth Integumentary: No rashes, No erythema, No warmth, No cyanosis, Other (Right abdomen fat-containing mass) Neurological: Other (Unable to fully assess at this time due to patient current mentation.) Lymphatics: No axilla or inguinal lymphadenopathy - Studies Laboratory Data (last 24 hrs) 01/23/25 01/23/25 01/23/25 17:30 17:30 17:30 WBC 11.50 H Hgb 10.1 L Hct 31.4 L Plt Count 335 PT 15.7 H INR 1.40 APTT 34.8 Sodium 134 L Potassium 4.1 BUN 21 H Creatinine 2.84 H Glucose 135 H Total Bilirubin 0.5 AST 11 L ALT < 14 L Alkaline Phosphatase 101 Male Exam - Male Exam Inguinal exam: Other (Umbilical hernia) Assessment and Plan - Plan Patient admitted to inpatient with diagnosis of sepsis due to UTI, KATLYN, and elevated troponin. Patient has history of myocardial infarction, and CABG. (1)Sepsis due to UTI. Patient have had multiple UTIs, and currently has chronic indwelling Durant catheter. -Meropenem 1000 mg every 12. Ordered for broad coverage especially since patient have history of multiple UTIs and indwelling Durant catheter. -IV NS at 50 mL/ hr slow infusion, history of CHF. -Follow-up lactic acid. (2)Elevated troponin. First troponin 76.8, second 84.2. Patient is unable to express if he has chest pain due to mentation at this time. The patient has history of myocardial infarction and CABG. -Started on heparin infusion. -Consult auto research engineer. -Order troponin every 8 x 3. -Order EKG every 8 x 3. -Morphine 4 mg as needed every 4 hours. -Nitro 0.4 mg sublingual as needed q 5 minutes x 3 -Order echocardiogram. Discharge Plan: Home Plan to discharge in: Greater than 2 days - Advance Directives Does patient have a Living Will: No Does patient have a Durable POA for Healthcare: No - Code Status/Comfort Care Code Status Assessed: Yes Code Status: Full Code Critical Care: No Time Spent Managing Pts Care (In Minutes): 55
[2025-01-23 22:16] VITALS: O2SAT 100
[2025-01-23] MEDS: NA CHLORIDE 0.9% 1,000 ML IV SCH (22:49)
[2025-01-23] MEDS: Meropenem 1,000 MG in NA CHLORIDE 0.9% 100 ML IV ONE (22:49)
[2025-01-23] MEDS: HEPARIN/D5W 25,000 UNIT/500 ML BAG IV SCH (23:06)
[2025-01-23] MEDS: HEPARIN 5000 UNIT/ML 1 ML VIAL ONE (23:43)
[2025-01-23] MEDS: HEPARIN 5000 UNIT/ML 1 ML VIAL IV ONE (23:45)
[2025-01-24] MEDS ORDERED: HEPARIN 5000 UNIT/ML 1 ML VIAL SQ SCH ×2 (01:00)
[2025-01-24 05:51] VITALS: BMI 25.2
[2025-01-24 07:56] LABS: Absolute Lymphocytes (CBC) 0.5 K/uL (0.7-4.9); Hematocrit 28.8 % (39.6-49.0); Hemoglobin 9.3 g/dL (13.6-17.9); MCH 28.1 pg (27.0-35.0); MCHC 32.2 g/dL (32.0-36.0); MCV 87.0 fL (80-100); MPV 8.5 fL (7.6-11.3); Nucleated RBC Absolute Count 0.0 (0-0); Nucleated Red Blood Cells % 0.0 % (0-0); RBC Red Blood Cell Count 3.31 M/uL (4.33-5.43); White Blood Count 12.60 thou/uL (4.3-10.9)
[2025-01-24 08:16] LABS: Anion Gap 12.4 mEq/L (5.0-15.0); BUN Blood Urea Nitrogen 21.0 mg/dL (7-18); Glucose Level 109.0 mg/dL (74-106); Potassium 4.4 mEq/L (3.5-5.1)
[2025-01-24 08:17] LABS: Troponin High Sensitivity 86.5 pg/mL (<58.9)
[2025-01-24] MEDS: Meropenem 1,000 MG in NA CHLORIDE 0.9% 100 ML IV SCH (08:52)
[2025-01-24] MEDS: ASPIRIN EC 81 MG TAB PO SCH (08:53)
[2025-01-24] MEDS: ACETAMINOPHEN 500 MG TAB PO ONE (08:53)
[2025-01-24 09:23] LABS: Blood Morphology Comment NOT SEEN (NOT SEEN); White Blood Cell Scan OK (OK)
[2025-01-24] MEDS: TICAGRELOR 90 MG TABLET PO SCH (10:32)
--- NOTE | 2025-01-24 11:42 | P.CNS ---
Date of Consult: 01/24/25 Chief Complaint: Sepsis due to UTI. Elevated troponin, KATLYN. History of Present Illness: Patient with PMH of CAD s/p CABG, recent PCI Free BALL-LAD touchdown, presented with AMS, UTI, Cardiology consulted for mild leak in troponin, no cardiac symptoms. Allergies No Known Allergies Allergy (Verified 06/29/22 21:09) Home medications list reviewed: Yes Home Medications: Ezetimibe [Zetia*] 10 mg PO DAILY 06/29/22 Labetalol HCl [Trandate] 200 mg PO BID 06/29/22 Pravastatin [Pravachol*] 40 mg PO BEDTIME 06/29/22 Tacrolimus 20 mg PO Q12H 06/29/22 Tamsulosin [Flomax*] 0.8 mg PO DAILY 06/29/22 allopurinoL [Allopurinol] 100 mg PO DAILY 06/29/22 lisinopriL [Lisinopril] 10 mg PO DAILY 06/29/22 mycophenolate mofetiL [Mycophenolate Mofetil] 500 mg PO BID 06/29/22 predniSONE [Prednisone*] 5 mg PO DAILY 06/29/22 Furosemide 20 mg PO BID 05/11/24 Mirtazapine 7.5 mg PO BEDTIME 05/11/24 Sucralfate [Carafate*] 1 gm PO QID 05/11/24 Amlodipine [Norvasc*] 10 mg PO DAILY #30 tab 05/19/24 Aspirin Chewable [Aspirin Chewable*] 81 mg PO DAILY #30 tab.chew 05/19/24 Fluticasone Propionate [Flovent Hfa] 12 gm IH BID #0 05/19/24 Ticagrelor [Brilinta*] 90 mg PO BID #60 tab 05/19/24 - Past Medical/Surgical History Diabetic: No -: HTN -: CAD. Diastolic CHF. LVH. -: HLD -: CKD III sp Renal Transplant ([facility]). Immunosuppression. -: ANG. Pulmonary nodules. -: Nephrolithiasis of transplanted kidney -: BPH with LUTS -: Gout -: HCV -: Hx Syphilis -: Lacunar infarct 06-03-19 -: PreDM -: AVF -: Nephrectomy -: Parathyroidectomy -: CAD stent -: Cholecystectomy -: kidney transplant - Social History Smoking Status: Unknown if ever smoked Alcohol use: Yes CD- Drugs: No Place of Residence: Home Review of Systems 10-point ROS is otherwise unremarkable Physical Examination Temp Pulse Resp BP Pulse Ox 101.0 F H 52 17 126/71 98 01/24/25 08:53 01/24/25 08:00 01/24/25 08:00 01/24/25 08:00 01/24/25 08:00 General: Alert, In no apparent distress HEENT: Atraumatic, PERRLA, Mucous membr. moist/pink, EOMI, Sclerae nonicteric Neck: Supple, 2+ carotid pulse no bruit, No LAD, Without JVD or thyroid abnormality Respiratory: Clear to auscultation bilaterally, Normal air movement Cardiovascular: Regular rate/rhythm, Normal S1 S2 Gastrointestinal: Normal bowel sounds, No tenderness Musculoskeletal: No tenderness Integumentary: No rashes Neurological: Normal gait, Normal speech, Normal tone, Normal affect Lymphatics: No axilla or inguinal lymphadenopathy Laboratory Data (last 24 hrs) 01/23/25 01/23/25 01/23/25 17:30 17:30 17:30 WBC 11.50 H Hgb 10.1 L Hct 31.4 L Plt Count 335 PT 15.7 H INR 1.40 APTT 34.8 Sodium 134 L Potassium 4.1 BUN 21 H Creatinine 2.84 H Glucose 135 H Total Bilirubin 0.5 AST 11 L ALT < 14 L Alkaline Phosphatase 101 - Problems (1) CAD (coronary artery disease) of artery bypass graft Current Visit: Yes Status: Acute Plan: Patient with CAD s/p CABG x3, recent coronary angiogram and PCI of Free BALL-LAD touchdown back on 04/2024, patient got mild leak in troponin with no significant delta, this is type 2 WI from UTI continue ASA 81 mg daily continue Brilinta 90 mg po BID Continue Lipitor 40 mg daily if patient need clearance for any procedure then patient is cleared as intermediate cardiac risk, and Brilinta can be D/C 3 days prior to procedure and resumed NAKUL after surgery No further inpatient cardiac work up needed cardiology will sign off, please call with any questions.
--- NOTE | 2025-01-24 12:19 | CON ---
Date of Consultation: 01/24/2025 Reason: Fat containing mass opposite to the renal pelvis in the abdomen of a transplanted kidney. History Of Present Illness: The patient is a 70-year-old gentleman, who was brought in to our emerge ncy room with multiple medical problems with altered mental status after he pulled out his catheter t hat was present in his right lower quadrant. Based on the description, appears to be a nephrostomy t ube. The grandson brought the patient in and said the patient was disoriented and pulled out his cat heter. The patient denies any sore throat, runny nose, cough, headaches, or dizziness. No chest jose j n. Pain in the right lower abdomen over his transplanted kidney, but the patient is confused and his tory is obtained from the medical record as well as the sister who is at bedside. The patient has a complex history and is being followed up in [facility]. The patient had the catheter put in recently by [facility] and was supposed to follow up with a doctor tomorrow. Review of Systems: Otherwise unremarkable. 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 Past Surgical History: AV fistula nephrectomy, parathyroidectomy, coronary artery stent placement, c holecystectomy, kidney transplant, and CABG. Allergies: NONE. Social History: The patient does drink alcohol. Physical Examination: Vital Signs: Significant for slight tachycardia and fever of 101. Blood pressure currently is 126/7 1. General: The patient is awake, confused. Head and Neck: No masses. Chest: Clear. Heart: S1, S2. Abdomen: Soft, nondistended. Positive right lower quadrant fullness with some tenderness over the t ransplanted kidney, but no erythema, warmth, edema. Appears to be a wound where the catheter was com ing out. There is no evidence of any significant bleeding. Extremities: Adequately perfused, nontender. Neuro: Nonfocal. Laboratory Data: Significant for white count of 12.6 with a left shift. INR is 1.4. Chemistry revi ewed. The patient's troponin 1 is 76.8 and the most recent is 86.5. BUN and creatinine are 21 and 2 .61. Urine is consistent with likely UTI with elevated white cells, leukocyte esterase. The urine c ulture has been reflex. 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 Recommendation: The patient is a well-established patient at [facility]. I would highly recommend that th e patient be transferred back there. The patient will continue resuscitation and treatment with IV a ntibiotics, but should there be a procedure, the patient needs perhaps a nephrostomy tube, it should be done at a facility where the patient is well known and has an established relationship with provid ers. I discussed this in detail with the Hospitalist Team as well as the family member. There is no need for any General Surgery intervention at this time. Please re-consult surgery p.r.n.; however, I would highly recommend transferring this patient as soon as possible. NICOLE/LOIS Voice ID: [id number] Report ID: [id number]
--- NOTE | 2025-01-24 17:15 | P.PN ---
Date of Service: 01/24/25 Subjective Patient recently discharged from 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 Patient's creatinine was 1.47 on discharge. Currently creatinine is greater than 2 4.. Physical Examination - Vitals Reviewed - Physical Exam General: Alert, Oriented x1, Cooperative Respiratory: Clear to auscultation bilaterally, Normal air movement Cardiovascular: Normal pulses, Regular rate/rhythm, Normal S1 S2, No gallops, No rubs, Systolic murmur Gastrointestinal: Normal bowel sounds, Hypoactive, Soft and benign, Non- distended, No ascites, No tenderness, No masses, No rebound, No guarding Musculoskeletal: No clubbing, No contractures, No warmth Integumentary: No rashes, No erythema, No warmth, No cyanosis, Other (Right abdomen fat-containing mass) Neurological: Other (Unable to fully assess at this time due to patient current mentation.) Assessment and Plan -Assessment/Plan Patient admitted to inpatient with diagnosis of sepsis due to UTI, KATLYN, and elevated troponin. Patient has history of myocardial infarction, and CABG. (1)Sepsis due to UTI. Patient have had multiple UTIs, and currently has chronic indwelling Durant catheter. Patient with a history of transplanted ureter. Patient had this done at [facility]. Clinically patient is stable. Mass was biopsied at [facility] and is not malignant. Cover with antibiotic therapy and monitor renal function. May need to be transferred to [facility] for further workup. -Meropenem 1000 mg every 12. Ordered for broad coverage especially since patient have history of multiple UTIs and indwelling Durant catheter. -IV NS at 50 mL/ hr slow infusion, history of CHF. -Follow-up lactic acid. (2)Elevated troponin. First troponin 76.8, second 84.2. Patient is unable to express if he has chest pain due to mentation at this time. The patient has history of myocardial infarction and CABG. -Started on heparin infusion. -Consult automation and controls manager. -Order troponin every 8 x 3. -Order EKG every 8 x 3. -Morphine 4 mg as needed every 4 hours. -Nitro 0.4 mg sublingual as needed q 5 minutes x 3 -Order echocardiogram. Discharge Plan: Home Plan to discharge in: Greater than 2 days - Advance Directives Does patient have a Living Will: No Does patient have a Durable POA for Healthcare: No - Code Status/Comfort Care Code Status Assessed: Yes Code Status: Full Code Critical Care: No Time Spent Managing Pts Care (In Minutes): 30 Note from visit in [place] PRIMARY DIAGNOSIS/REASON FOR ADMISSION Hydronephrosis and Oliguria FINAL DIAGNOSIS: (the reason, after study, for admitting the patient to the hospital): Myelolipoma compressing transplanted ureter IR Placement nephro catheter percutaneous includes diagnostic nephrogram Result Date: 01/05/2025 Successful placement of right lower quadrant transplant nephrostomy catheter. As the attending radiologist, Telma, Dr. Howard Cabello, was present in the room during the entire procedure. Preliminary Report Dictated by Resident: Howard Miguel MD., have reviewed this study and agree with the above report. IR Exchange nephrostomy catheter Result Date: 01/05/2025 Successful placement of a new 10Fr nephrostomy catheter. Remove old PCN in 3 days. Preliminary Report Dictated by Resident: Katie Hawley As the attending radiologist, Telma, Dr. Howard Cabello, was present in the room during the entire procedure. Howard Hollis MD., have reviewed this study and agree with the above report. MR Abdomen w wo contrast Result Date: 12/30/2024 Large fat and soft tissue containing transplant kidney/perinephric mass. Differential diagnosis remains still include low vascular angiomyolipoma, low- grade liposarcoma. Other rare differential diagnoses include retroperitoneal myolipoma or germ cell tumor. Mild decreased transplant hydroureteronephrosis, status post placement of a percutaneous nephrostomy tube. The mass effect and stretching of the ureteropelvic junction appears to participate in hydronephrosis. However ureterovesical junction on anastomosis was not well evaluated on current exam. Recommendation: Given growing mass, especially in regards to soft tissue component biopsy is recommended preferably under glide of CT scan as differentiation of the fat and soft tissue component could be difficult on ultrasound. Preliminary Report Dictated by Resident: Radha Grewal MD., have reviewed this study and agree with the above report. CT Abdomen pelvis w contrast Addendum Date: 12/28/2024 * * * * * * * * ADDENDUM: * * * * * * * * Could also include large angiomyolipoma in the differential. Result Date: 12/28/2024 Fat-containing perinephric transplant mass has gradually increased over multiple years with increased mass effect. The internal soft tissue density component is less well defined and slightly increased in prominence, with increased pink rrounding stranding. Differential includes perinephric myxoid pseudotumor of fat and low-grade liposarcoma. IR consultation for potential tissue sampling may be helpful. Mild transplant hydroureteronephrosis has increased. The transplant collecting system and ureter are stretched about the fat-containing perinephric mass and this may contribute to obstruction but suspect primary obstructive point is a ureteral anastomotic stricture. Bladder wall thickening and irregularity at the bladder dome/anastomosis could be related to cystitis or changes of chronic bladder outlet obstruction. Nonobstructing intrarenal calculi. XR [employer] Result Date: 12/27/2024 Findings/Impression: No radiopaque foreign body identified. The left forearm dialysis 6 graft. Advanced vascular calcification. No visualized acute fracture or dislocation. Mild to moderately enlarged cardiac silhouette. Median sternotomy wires. XR Kub Result Date: 12/26/2024 Right pigtail PCN tip projects over the right peripheral mid abdomen Preliminary Report Dictated by Resident: Jesús Gutierrez MD., have reviewed this study and agree with the above report. US Transplanted kidney Result Date: 12/23/2024 Predominantly fat density mass compressing the renal transplant from medial aspect. Possibility of a renal angiomyolipoma or retroperitoneal sarcoma is not excluded Mild hydronephrosis. Patent vasculature. Color flow pattern and doppler indices demonstrate increased renal artery RI and borderline increased segmental artery RI. No perinephric collection. Ammon Hollis MD., have reviewed this study and agree with the above report. HOSPITAL COURSE: John Myers is a 69-year-old male with a history of end-stage renal disease secondary to hypertension status post donor renal transplant (2004) on immunosuppression, coronary artery disease status post CABG (2023), atrial fibrillation, prior pontine CVA (2023), heart failure with preserved ejection fraction, hypertension, hyperlipidemia, and BPH status post TURP (2018), who was admitted on 12/23/2024 for acute kidney injury and oliguria in the setting of a known enlarging perinephric mass compressing his transplanted kidney. The principal diagnosis was obstructive acute kidney injury due to a large perinephric mass causing hydronephrosis and distal ureteral stricture of the transplanted kidney. This was established through serial laboratory evaluation showing a creatinine peak of 3.84 mg/dL, imaging including renal ultrasound, CT, and MRI demonstrating a 12.2 cm fat and soft tissue containing mass with associated hydronephrosis, and ultimately confirmed by CT-guided core biopsy and FNA of the mass, which revealed a lipomyoma/myelolipoma. To address the obstruction, he underwent percutaneous nephrostomy (PCN) placement on 12/24, which was complicated by hematuria and clot retention requiring urologic intervention and PCN exchange. After stabilization, he subsequently underwent successful conversion from PCN to percutaneous nephroureterostomy (PCNU) with balloon dilation of the distal ureteral stricture on 01/06, resulting in improved urine output and downtrending creatinine to near baseline. During the admission, he was managed with adjustment of his immunosuppression regimen, including titration of tacrolimus and mycophenolate doses, and co ntinued on prednisone. He received IV ceftriaxone for a urinary tract infection, which was discontinued after completion of the course. His antihypertensive regimen was adjusted as tolerated, and he received IV iron supplementation for anemia of chronic disease, with hemoglobin monitored closely and remaining stable without evidence of ongoing bleeding. Other issues addressed included transient delirium, which resolved with improvement in renal function and metabolic status, and pain management. He remained hemodynamically stable, with no recurrence of atrial fibrillation or acute cardiac events. He tolerated oral intake, participated in physical therapy, and maintained adequate urine output through the nephroureterostomy tube. At the time of the most recent documentation, he was clinically stable, with stable renal function, improved mental status, and no acute complaints, pending final pathology and further management planning for the perinephric mass. PLAN: #CKD/ESRD secondary to HTN s/p DDKT on 03/08/05 MYELOLIPOMA 12/31/2024 Immunosuppression: ? Tacrolimus 3mg Q12H, current level <3 increased from 3/2 on 01/07 (goal ~4) ? Cellcept 500 mg po Q12H ? Prednisone 5 mg po Q24H PPX based on Estimated Creatinine Clearance: 48.8 mL/min (A) (by C-G formula based on SCr of 1.45 mg/dL (H)). ml/min on 01/07/2025 16:26 PCNU open to drainage bag, will follow up with surgery next week to clamped PCNU and discuss surgical options for decompression. FOLLOW-UP APPOINTMENTS: [facility] Transplant Nephrology @ [facility] with labs on 02/01/2025. [facility] Transplant Surgery on 01/11/2025
[2025-01-24] MEDS: ALBUMIN HUMAN 25% 100 ML IV ONE (20:52)
[2025-01-24] MEDS: ENSURE ENLIVE 237 ML CAN PO SCH (20:53)
[2025-01-25 06:10] LABS: Absolute Lymphocytes (CBC) 0.4 K/uL (0.7-4.9); Hematocrit 28.2 % (39.6-49.0); Hemoglobin 9.2 g/dL (13.6-17.9); MCH 28.2 pg (27.0-35.0); MCHC 32.6 g/dL (32.0-36.0); MCV 86.5 fL (80-100); MPV 7.9 fL (7.6-11.3); Nucleated RBC Absolute Count 0.0 (0-0); Nucleated Red Blood Cells % 0.0 % (0-0); RBC Red Blood Cell Count 3.26 M/uL (4.33-5.43); White Blood Count 9.60 thou/uL (4.3-10.9)
[2025-01-25 06:31] LABS: Anion Gap 12.2 mEq/L (5.0-15.0); BUN Blood Urea Nitrogen 24.0 mg/dL (7-18); Glucose Level 102.0 mg/dL (74-106); Potassium 4.2 mEq/L (3.5-5.1)
[2025-01-25] MEDS: METOPROLOL TARTRATE 5 MG/5 ML INJ IV STA ×2 (13:44→16:50)
[2025-01-25] MEDS ORDERED: METOPROLOL TAR 25 MG TAB PO SCH (18:00)
[2025-01-25] MEDS: METOPROLOL TAR 50 MG TAB PO SCH (18:24)
[2025-01-26 06:03] LABS: Absolute Lymphocytes (CBC) 0.4 K/uL (0.7-4.9); Hematocrit 29.7 % (39.6-49.0); Hemoglobin 9.8 g/dL (13.6-17.9); MCH 28.5 pg (27.0-35.0); MCHC 33.0 g/dL (32.0-36.0); MCV 86.3 fL (80-100); MPV 7.6 fL (7.6-11.3); Nucleated RBC Absolute Count 0.0 (0-0); Nucleated Red Blood Cells % 0.1 % (0-0); RBC Red Blood Cell Count 3.45 M/uL (4.33-5.43); White Blood Count 6.60 thou/uL (4.3-10.9)
[2025-01-26 06:15] LABS: Anion Gap 9.2 mEq/L (5.0-15.0); BUN Blood Urea Nitrogen 21.0 mg/dL (7-18); Glucose Level 107.0 mg/dL (74-106); Potassium 4.2 mEq/L (3.5-5.1)
[2025-01-27 07:03] LABS: Absolute Lymphocytes (CBC) 0.4 K/uL (0.7-4.9); Hematocrit 29.4 % (39.6-49.0); Hemoglobin 9.7 g/dL (13.6-17.9); MCH 28.3 pg (27.0-35.0); MCHC 32.9 g/dL (32.0-36.0); MCV 86.2 fL (80-100); MPV 7.5 fL (7.6-11.3); Nucleated RBC Absolute Count 0.0 (0-0); Nucleated Red Blood Cells % 0.0 % (0-0); RBC Red Blood Cell Count 3.41 M/uL (4.33-5.43); White Blood Count 7.00 thou/uL (4.3-10.9)
[2025-01-27 07:20] LABS: ALT/SGPT 29.0 U/L (16-61); AST/SGOT 42.0 U/L (15-37); Albumin 2.2 g/dL (3.4-5.0); Albumin/Globulin Ratio 0.4 (1.1-1.8); Alkaline Phosphatase 91.0 U/L (45-117); Anion Gap 9.9 mEq/L (5.0-15.0); BUN Blood Urea Nitrogen 18.0 mg/dL (7-18); Globulin 5.4 g/dL (2.3-3.5); Glucose Level 100.0 mg/dL (74-106); Potassium 3.9 mEq/L (3.5-5.1)
--- NOTE | 2025-01-27 09:15 | P.PN ---
Date of Service: 01/25/25 Subjective Patient clinically doing well with no new complaints. Clinical symptoms are improving. Renal function is better. Physical Examination - Vitals Reviewed - Physical Exam General: Alert, Oriented x2-3, Cooperative Respiratory: Clear to auscultation bilaterally, Normal air movement Cardiovascular: Normal pulses, Regular rate/rhythm, Normal S1 S2, No gallops, No rubs, Systolic murmur Gastrointestinal: Normal bowel sounds, Hypoactive, Soft and benign, Non- distended, No ascites, No tenderness, No masses, No rebound, No guarding Musculoskeletal: No clubbing, No contractures, No warmth Integumentary: No rashes, No erythema, No warmth, No cyanosis, Other (Right abdomen fat-containing mass) Neurological: Follow commands and clinical symptoms are much better Assessment and Plan -Assessment/Plan Patient admitted to inpatient with diagnosis of sepsis due to UTI, KATLYN, and elevated troponin. Patient has history of myocardial infarction, and CABG. (1) Sepsis due to UTI. 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 Overall patient is doing better and following commands. Continue with meropenem. Patient also on with gram-negative rods. -Meropenem 1000 mg every 12. Ordered for broad coverage especially since patient have history of multiple UTIs and indwelling Durant catheter. -IV NS at 50 mL/ hr slow infusion, history of CHF. (2) Elevated troponin. Type II myocardial infarction,. continue with outpatient cardiology follow-up. -Order echocardiogram. Discharge Plan: Home Plan to discharge in: Greater than 2 days - Advance Directives Does patient have a Living Will: No Does patient have a Durable POA for Healthcare: No - Code Status/Comfort Care Code Status Assessed: Yes Code Status: Full Code Critical Care: No Time Spent Managing Pts Care (In Minutes): 30
--- NOTE | 2025-01-27 09:15 | P.PN ---
Date of Service: 01/26/25 Subjective Clinical symptoms continue to prove. Patient denies any new complaints. Cultures positive for Pseudomonas. Sensitivities pending. Physical Examination - Vitals Reviewed - Physical Exam General: Alert, Oriented x3, Cooperative Respiratory: Clear to auscultation bilaterally, Normal air movement Cardiovascular: Normal pulses, Regular rate/rhythm, Normal S1 S2, No gallops, No rubs, Systolic murmur Gastrointestinal: Normal bowel sounds, Hypoactive, Soft and benign, Non- distended, No ascites, No tenderness, No masses, No rebound, No guarding Musculoskeletal: No clubbing, No contractures, No warmth Integumentary: No rashes, No erythema, No warmth, No cyanosis, Other (Right ab domen fat-containing mass) Neurological: Follow commands and clinical symptoms are much better Assessment and Plan -Assessment/Plan Patient admitted to inpatient with diagnosis of sepsis due to UTI, KATLYN, and elevated troponin. Patient has history of myocardial infarction, and CABG. (1) Sepsis due to UTI. 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 Overall patient is doing better and following commands. Continue with meropenem. Patient also on with gram-negative rods. -Meropenem 1000 mg every 12. Ordered for broad coverage especially since patient have history of multiple UTIs and indwelling Durant catheter. -IV NS at 50 mL/ hr slow infusion, history of CHF. (2) Elevated troponin. Type II myocardial infarction,. continue with outpatient cardiology follow-up. -Order echocardiogram. Discharge Plan: Home Plan to discharge in: Greater than 2 days - Advance Directives Does patient have a Living Will: No Does patient have a Durable POA for Healthcare: No - Code Status/Comfort Care Code Status Assessed: Yes Code Status: Full Code Critical Care: No Time Spent Managing Pts Care (In Minutes): 30
[2025-01-27] MEDS: CIPROFLOXACIN HCL 500 MG TAB PO ONE (09:46)
[2025-01-27] MEDS: CIPROFLOXACIN HCL 500 MG TAB PO SCH (20:36)
[2025-01-28] MEDS: HYDRALAZINE HCL 20 MG/ML VIAL IV PRN (00:04)
[2025-01-28] MEDS: MORPHINE 4 MG/ML SYR IV PRN (04:38)
[2025-01-28] MEDS: FUROSEMIDE 40 MG/4 ML VIAL IV ONE (04:53)
[2025-01-28 12:08] VITALS: TEMP 98
[2025-01-28 17:01] VITALS: BP 146/83
== END 2025-01-28 19:15 | disposition short-term general hospital (02) | DRG 698 ==
LOC: ER 17:07 → 4TH 20:48
PROVIDERS: ADMIT Hospitalist; ATTEND Hospitalist
DX: T83.512A Infection and inflammatory reaction due to nephrostomy catheter, initial encounter (principal); A41.52 Sepsis due to Pseudomonas; I21.A1 Myocardial infarction type 2; E44.0 Moderate protein-calorie malnutrition; Z94.0 Kidney transplant status; N17.9 Acute kidney failure, unspecified; I13.0 Hypertensive heart and chronic kidney disease with heart failure and stage 1 through stage 4 chronic kidney disease, or unspecified chronic kidney disease; I50.32 Chronic diastolic (congestive) heart failure; N13.6 Pyonephrosis; N18.30 Chronic kidney disease, stage 3 unspecified; E78.00 Pure hypercholesterolemia, unspecified; N40.1 Benign prostatic hyperplasia with lower urinary tract symptoms; F03.90 Unspecified dementia, unspecified severity, without behavioral disturbance, psychotic disturbance, mood disturbance, and anxiety; I25.10 Atherosclerotic heart disease of native coronary artery without angina pectoris; I25.2 Old myocardial infarction; Z95.1 Presence of aortocoronary bypass graft; Z68.25 Body mass index [BMI] 25.0-25.9, adult; Z86.73 Personal history of transient ischemic attack (TIA), and cerebral infarction without residual deficits; Z85.528 Personal history of other malignant neoplasm of kidney; Z79.52 Long term (current) use of systemic steroids; Z79.899 Other long term (current) drug therapy; Z79.82 Long term (current) use of aspirin; Z95.5 Presence of coronary angioplasty implant and graft; Z90.49 Acquired absence of other specified parts of digestive tract; Z11.52 Encounter for screening for COVID-19
CPT/HCPCS: 36415; 51702; 71045; 71250; 74176; 80048; 80053; 81001; 82947; 83605; 83880; 84484; 85025; 85610; 85730; 87040; 87077; 87086; 87088; 87186; 87205; 87428; 93005; 93306; 96365; 96367; 99285; J0360; J0692; J1644; J1938; J2185; J3373; J7030; J7050; P9047